=== PATIENT | female | born 1955 | race Caucasian/White ===

== ENCOUNTER 2021-02-09 09:02 | Inpatient (IN) | payer OTHER, MEDICAID, SELFPAY ==
[2021-02-09] VITALS (11 sets, daily range): BP systolic 115–148; BP diastolic 57–73; PULSE 71–87; RESP 18–27; TEMP 36–37.1; O2SAT 90–100; BMI 33.3
--- NOTE | ~2021-02-09 | XR_ITS ---
EXAMINATION: XR FOOT, LEFT CLINICAL INFORMATION: Fall, trauma, pain COMPARISON: None TECHNIQUE: AP, lateral, and oblique views of the left foot. FINDINGS: There is subtle blurring digits on the AP view. The bony structures appear intact and there is no visible acute or healing fracture, dislocation, or destructive process. The first proximal phalanx is foreshortened, possibly related to old healed injury. There are posterior and plantar calcaneal spurs. The retrocalcaneal recess is preserved. XR/XR foot LT min 3V IMPRESSION: 1. No visible fracture or dislocation or destructive process. 2. Posterior and plantar calcaneal spurs.
--- NOTE | ~2021-02-09 | XR_ITS ---
EXAMINATION: XR CHEST CLINICAL INFORMATION: Shortness of breath COMPARISON: Chest radiographs 04/22/2017, 04/21/2017, CTA chest 04/22/2017 TECHNIQUE: Portable upright AP view of the chest was obtained. FINDINGS: There is mild coarsening of the interstitial markings similar to prior studies. There is no lobar segmental airspace consolidation or definite groundglass opacity. The heart is normal in size. The vascularity is normal. There is no effusion. The hilar and mediastinal contours and bony structures are unremarkable. There are old healed left rib fractures. XR/XR chest 1V IMPRESSION: Mild coarsening interstitial markings similar to prior studies.
--- NOTE | ~2021-02-09 | CT_ITS ---
EXAMINATION: CT HEAD WITHOUT CONTRAST CLINICAL INFORMATION: Weakness and falls. COMPARISON: None TECHNIQUE: Contiguous axial imaging was performed from the skull base to vertex without intravenous administration of contrast. This CT examination was performed using dose optimization techniques as appropriate, variously including the following: *Automated exposure control *Adjustment of mA and/or kV according to patient size (this includes techniques or standardized protocols for targeted exams where dose is matched to indication/reason for exam; i.e. extremities or head) *Use of iterative reconstruction technique DLP: 650 mGy-cm FINDINGS: There is no evidence of acute intracranial hemorrhage or territorial infarction. No abnormal mass effect or midline shift is seen. Salguero to white matter differentiation is well preserved. No extra-axial fluid collections are identified. There is a punctate calcification in the left tentorium. The ventricles are normal in size. There is no abnormal attenuation within the brain parenchyma. The osseous structures and soft tissues are normal. The mastoid air cells and visualized portions of the paranasal sinuses are well aerated. CT/CT head/brain wo con IMPRESSION: No acute intracranial process seen.
--- NOTE | 2021-02-09 09:34 | ECG_ITS ---
Test Reason : WEAKNESS Blood Pressure : / mmHG Vent. Rate : 081 BPM Atrial Rate : 081 BPM P-R Int : 130 ms QRS Dur : 088 ms QT Int : 356 ms P-R-T Axes : 071 074 045 degrees QTc Int : 413 ms Normal sinus rhythm Possible Left atrial enlargement Borderline ECG When compared with ECG of 23-APR-2017 12:28, Sinus rhythm has replaced Junctional rhythm Referred By: Sarah Nieves Electronically Signed By:ROGERIO JOHNSON MD
--- NOTE | 2021-02-09 09:37 | ED_ITS ---
HPI - Weakness General Chief complaint: Weakness Stated complaint: WEAK W/ FALLS FROM ASSIST LIVING Time Seen by Provider: 02/09/21 09:24 Source: patient and EMS Mode of arrival: EMS Limitations: no limitations History of Present Illness HPI Narrative: 65 y/o female with history of end stage lung disease with chronic hypoxic respiratory failure on 3L NC and QHS BiPAP (via [employer]), hx tracheostomy s/p decannulation 2 years ago, obesity & depression presents to the ED from assisted living via EMS with increased weakness, confusion since last night with multiple falls. She is a vague historian. She reports I just keep falling. She states she has been using her walker to ambulate when he legs just keep giving out on her. She his her head at least once. She did not lose consciousness. She denies being on blood thinners. She reports compliance with her BiPAP. She was able to get herself up initially but last night (unsure time) she states she was unable to get up and remained there for an unknown amount of time. She remembered she had a [employer] button and pressed it this morning. MD Complaint: generalized weakness and difficulty walking Onset (ago): day(s) (1) Duration: constant Location: generalized Migration: none Severity: severe Relieving factors: rest Exacerbating factors: movement Associated symptoms: shortness of breath Related Data Home Medications Medication Instructions Recorded Confirmed acetaminophen 1,000 mg PO TID PRN 02/09/21 02/09/21 acetazolamide 250 mg PO MOWEFR@1000 02/09/21 02/09/21 albuterol sulfate [Proventil HFA] 2 puff INHALATION QID PRN 02/09/21 02/09/21 alendronate [Fosamax] 70 mg PO QWEEK 02/09/21 02/09/21 aripiprazole [Abilify] 10 mg PO DAILY 02/09/21 02/09/21 aspirin 81 mg PO DAILY 02/09/21 02/09/21 bupropion HCl [Wellbutrin SR] 200 mg PO DAILY 02/09/21 02/09/21 cholecalciferol (vitamin D3) 50 mcg PO DAILY 02/09/21 02/09/21 [Vitamin D3] fluticasone furoate-vilanterol 1 inh INHALATION DAILY 02/09/21 02/09/21 [Breo Ellipta] lamotrigine 200 mg PO DAILY 02/09/21 02/09/21 lamotrigine 300 mg PO BEDTIME 02/09/21 02/09/21 magnesium oxide 400 mg PO BID 02/09/21 02/09/21 metoprolol succinate 50 mg PO DAILY 02/09/21 02/09/21 mirtazapine 15 mg PO BEDTIME 02/09/21 02/09/21 montelukast 10 mg PO BEDTIME 02/09/21 02/09/21 multivitamin 1 tab PO DAILY 02/09/21 02/09/21 prednisone 10 mg PO DAILY 02/09/21 02/09/21 selenium sulfide 10 ml TOPICAL 2XW 02/09/21 02/09/21 sodium chloride [Nasal Mist] 2 spray INTRANASAL QID PRN 02/09/21 02/09/21 tiotropium bromide [Spiriva with 1 cap INHALATION DAILY 02/09/21 02/09/21 HandiHaler] vilazodone [Viibryd] 20 mg PO DAILY 02/09/21 02/09/21 Allergies Allergy/AdvReac Type Severity Reaction Status Date / Time codeine [Codeine] Allergy Intermediate RESTLESS/RA Unverified 08/14/20 15:59 SH Sulfa (Sulfonamide Allergy Intermediate HIVES Unverified 08/14/20 15:59 Antibiotics) haloperidol [Haldol] Allergy Unknown Verified 08/29/18 00:00 From Haldol Allergy Intermediate HIVES Uncoded 08/14/20 15:59 codeine Allergy Unknown aggitaiton Uncoded 03/27/12 00:00 Codeine Phosphate Allergy Unknown Uncoded 08/29/18 00:00 haldol Allergy Unknown aggitation Uncoded 03/27/12 00:00 sulfa Allergy Unknown hives Uncoded 03/27/12 00:00 Review of Systems Review of Systems: Constitutional: No Fever, No Chills ENT/Mouth: No sore throat, No Rhinorrhea, No Swallowing Difficulty Eyes: No Eye Pain, No Swelling, No Redness Cardiovascular: No Chest Pain, + SOB, No Orthopnea, No Edema Respiratory: No Cough, No Sputum, No Wheezing, + dyspnea Gastrointestinal: + Nausea, No Vomiting, No Diarrhea, No abdominal Pain, No Hematochezia, No Melena Genitourinary: No Dysuria, No Urinary Frequency, No Hematuria Musculoskeletal: No joint pain, No Myalgias Skin: No Skin Lesions, No rash Neuro: + Weakness, No Numbness, + Dizziness, No Headache Psych: No Anxiety/Panic, No Depression Heme/Lymph: No Bruising, No Lymphadenopathy Endocrine: No Polyuria, No Polydipsia [facility] Past Medical History Attestation statement: The following information was validated with the patient. Social History Social History Alcohol intake: unknown Smoking Status: Unknown if ever smoked Use of substances other than those prescribed or required for medical reasons: No Advance Directives: No Advance Directives Information Provided: No Physical Exam Vital Signs: Vital Signs: Last Vital Signs Temp 98.0 F 02/09/21 15:14 Pulse 77 02/09/21 15:14 Resp 24 H 02/09/21 15:28 BP 121/58 L 02/09/21 15:14 Pulse Ox 95 02/09/21 15:14 Body Mass Index 33.3 Appearance: Appears older than stated age, No acute distress. Eyes: Pupils equal, round and reactive to light. ENT: Pharynx normal. Neck: Normal inspection. Neck supple. Well healed scar consistent with prior tracheostomy CVS: Normal heart rate and rhythm. Pulses normal. Respiratory: No respiratory distress. Breath sounds diminished throughout, no wheezes. Abdomen: Obese, Soft and nontender. +BS x4 Skin: Skin warm and dry. Normal skin color. Normal skin turgor. No rashes. Extremities: No lower extremity edema. Negative Austyn's sign Neuro: Oriented X 3. No motor deficit. No sensory deficit. Generalized weakness noted LE (symmetrical) >UE. +asterixis. mild dysarthria Course Course Course Narrative: 65 y/o female with chronic respiratory failure presenting with weakness and multiple falls since yesterday. No focal weakness on exam but she has some mild lethargy, mild dysarthria and asterixis. Concern for acute on chronic hypercarbia. Will get ABG, CT head, EKG, and basic lab workup. Low suspicion for CVA, she is non-focal and is not a tPA candidate. Reevaluation(s) Reevaluation #1: ABG showing acute on chronic hypercarbia with pH 7.25, PCO2 117, and PO2 188. Taken off oxygen. RT called for BiPAP. Will give trial of rescue BiPAP with low FiO2, target O2 sat 88-92% and repeat ABG. She is no distress and conversant, Rest of lab workup is pending Reevaluation #2: Rest of workup is unremarkable. Bicarb 48, unknown baseline although given her significant PCO2 elevation this is likely chronic. Spoke with Dr. Low from ICU who is recommending c/s with Pulmonology. Spoke with Dr. Goldstein who is recommending to hold off on Diamox for now. Continue NIPPV. She is ok for admission to [facility] [place] given chronicity of respiratory failure and home use of BiPAP. Will repeat ABG to ensure continued improvement. Her mentation has improved with reduction in PCO2. Reevaluation #3: ABGs continue to improve. pH now normal 7.35. Will take off BiPAP and place on NC for goal O2 sats 88-92%. Will contact hospitalist (Aurora Acharya) for admission. She will come evaluate the patient. Patient to be admitted to [facility] [place]. Patient reports if she were to decompensate she would want resuscitation including ventilator support. Explained her end stage lung disease and likihood of coming off ventilator very low, she expressed understanding. 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 Goldstein - Cornice Upholsterer MDM - Weakness Medical Records Attestation: I reviewed the patient's medical records. Lab Data Attestation: I reviewed the patient's lab results. Result diagrams: 02/09/21 11:21 02/09/21 11:21 Labs: Lab Results 02/09/21 02/09/21 02/09/21 Range/Units 09:52 10:42 10:42 WBC 7.9 (4.8-10.8) X10*3/uL RBC 4.44 (4.20-5.50) X10*6/uL Hgb 13.9 (12.0-16.0) g/dl Hct 46.7 (37-47) % MCV 105.2 H (80-98) fL MCH 31.3 (27.0-33.0) pg MCHC 29.8 L (31.0-35.0) g/dl RDW 12.9 (11.0-16.0) % Plt Count 455 H (160-400) X10*3/uL MPV 9.0 L (9.4-12.3) fL Immature Gran % (Auto) 0.4 (0.0-0.4) % Neut % (Auto) 84.1 H (45-73) % Lymph % (Auto) 6.0 L (20-40) % [place] % (Auto) 7.6 (2-11) % Eos % (Auto) 1.6 (0-4) % Baso % (Auto) 0.3 (0-2) % Lymph # (Auto) 0.5 L (1.2-4.9) X10*3/uL [place] # (Auto) 0.6 (0.1-1.2) X10*3/uL Eos # (Auto) 0.1 (0.0-0.4) X10*3/uL Baso # (Auto) 0.0 (0.0-0.2) X10*3/uL Abs Immat Gran (auto) 0.03 (0.00-0.03) X10*3/uL Absolute Neuts (auto) 6.6 (2.0-8.3) X10*3/uL Absolute Nucleated RBC 0.000 (0.0-0.012) X10*3/uL Nucleated RBC % (auto) 0.0 (0.0-0.2) /100WBC Smear Tech's Comments VERIFIED PT 12.8 (10.8-13.0) SEC INR 1.1 (0.9-1.1) Hold Blue Top SEE NOTE O2 Saturation 100.0 % ABG pH at Pt Temp 7.24 L (7.35-7.45) ABG pH (Temp Correct) 7.25 L (7.35-7.45) ABG pCO2 at Pt Temp 118 H* (32-45) mmHg ABG pCO2 (Temp Corrct 117 H* (32-45) mmHg ABG pO2 at Pt Temp 188 H (83-108) mmHg ABG pO2 (Temp Correct 187 H (83-108) ABG HCO3 52 H (22-26) mmol/L ABG Base Excess (Actual) 17.9 mmol/L Sodium Potassium Chloride Carbon Dioxide Anion Gap BUN Creatinine Estim Creat Clear Calc Estimated GFR Random Glucose Calcium Magnesium Total Bilirubin Direct Bilirubin AST ALT Alkaline Phosphatase Total Creatine Kinase (26-140) U/L Troponin I High Sens (<3.5-17.0) ng/L B-Natriuretic Peptide (<100) pg/mL Total Protein Albumin Procalcitonin ng/mL COVID-19 (EDU) (Negative) COVID-19 Clin Com 02/09/21 02/09/21 02/09/21 Range/Units 10:42 11:18 11:21 WBC (4.8-10.8) X10*3/uL RBC (4.20-5.50) X10*6/uL Hgb (12.0-16.0) g/dl Hct (37-47) % MCV (80-98) fL MCH (27.0-33.0) pg MCHC (31.0-35.0) g/dl RDW (11.0-16.0) % Plt Count (160-400) X10*3/uL MPV (9.4-12.3) fL Immature Gran % (Auto) (0.0-0.4) % Neut % (Auto) (45-73) % Lymph % (Auto) (20-40) % [place] % (Auto) (2-11) % Eos % (Auto) (0-4) % Baso % (Auto) (0-2) % Lymph # (Auto) (1.2-4.9) X10*3/uL [place] # (Auto) (0.1-1.2) X10*3/uL Eos # (Auto) (0.0-0.4) X10*3/uL Baso # (Auto) (0.0-0.2) X10*3/uL Abs Immat Gran (auto) (0.00-0.03) X10*3/uL Absolute Neuts (auto) (2.0-8.3) X10*3/uL Absolute Nucleated RBC (0.0-0.012) X10*3/uL Nucleated RBC % (auto) (0.0-0.2) /100WBC Smear Tech's Comments PT (10.8-13.0) SEC INR (0.9-1.1) Hold Blue Top O2 Saturation % ABG pH at Pt Temp (7.35-7.45) ABG pH (Temp Correct) (7.35-7.45) ABG pCO2 at Pt Temp (32-45) mmHg ABG pCO2 (Temp Corrct (32-45) mmHg ABG pO2 at Pt Temp (83-108) mmHg ABG pO2 (Temp Correct (83-108) ABG HCO3 (22-26) mmol/L ABG Base Excess (Actual) mmol/L Sodium Cancelled Potassium Cancelled Chloride Cancelled Carbon Dioxide Cancelled Anion Gap Cancelled BUN Cancelled Creatinine Cancelled Estim Creat Clear Calc Cancelled Estimated GFR Cancelled Random Glucose Cancelled Calcium Cancelled Magnesium Cancelled Total Bilirubin Cancelled Direct Bilirubin Cancelled AST Cancelled ALT Cancelled Alkaline Phosphatase Cancelled Total Creatine Kinase (26-140) U/L Troponin I High Sens 4.4 (<3.5-17.0) ng/L B-Natriuretic Peptide 30 (<100) pg/mL Total Protein Cancelled Albumin Cancelled Procalcitonin ng/mL COVID-19 (EDU) Negative (Negative) COVID-19 Clin Com See Note 02/09/21 02/09/21 02/09/21 Range/Units 11:21 11:21 11:21 WBC 9.0 (4.8-10.8) X10*3/uL RBC 4.22 (4.20-5.50) X10*6/uL Hgb 13.3 (12.0-16.0) g/dl Hct 44.3 (37-47) % MCV 105.0 H (80-98) fL MCH 31.5 (27.0-33.0) pg MCHC 30.0 L (31.0-35.0) g/dl RDW 13.1 (11.0-16.0) % Plt Count 430 H (160-400) X10*3/uL MPV 8.9 L (9.4-12.3) fL Immature Gran % (Auto) 0.4 (0.0-0.4) % Neut % (Auto) 84.1 H (45-73) % Lymph % (Auto) 5.8 L (20-40) % [place] % (Auto) 8.4 (2-11) % Eos % (Auto) 1.1 (0-4) % Baso % (Auto) 0.2 (0-2) % Lymph # (Auto) 0.5 L (1.2-4.9) X10*3/uL [place] # (Auto) 0.8 (0.1-1.2) X10*3/uL Eos # (Auto) 0.1 (0.0-0.4) X10*3/uL Baso # (Auto) 0.0 (0.0-0.2) X10*3/uL Abs Immat Gran (auto) 0.04 H (0.00-0.03) X10*3/uL Absolute Neuts (auto) 7.5 (2.0-8.3) X10*3/uL Absolute Nucleated RBC 0.000 (0.0-0.012) X10*3/uL Nucleated RBC % (auto) 0.0 (0.0-0.2) /100WBC Smear Tech's Comments PT (10.8-13.0) SEC INR (0.9-1.1) Hold Blue Top O2 Saturation % ABG pH at Pt Temp (7.35-7.45) ABG pH (Temp Correct) (7.35-7.45) ABG pCO2 at Pt Temp (32-45) mmHg ABG pCO2 (Temp Corrct (32-45) mmHg ABG pO2 at Pt Temp (83-108) mmHg ABG pO2 (Temp Correct (83-108) ABG HCO3 (22-26) mmol/L ABG Base Excess (Actual) mmol/L Sodium 143 Potassium 4.6 Chloride 90 L Carbon Dioxide 48 H* Anion Gap 10 L BUN 19 H Creatinine 0.96 Estim Creat Clear Calc 57.4 Estimated GFR 58 Random Glucose 132 H Calcium 9.7 Magnesium 2.1 Total Bilirubin 0.5 Direct Bilirubin < 0.2 AST 17 ALT 18 Alkaline Phosphatase 67 Total Creatine Kinase (26-140) U/L Troponin I High Sens (<3.5-17.0) ng/L B-Natriuretic Peptide (<100) pg/mL Total Protein 6.9 Albumin 4.4 Procalcitonin 0.02 ng/mL COVID-19 (EDU) (Negative) COVID-19 Clin Com 02/09/21 02/09/21 02/09/21 Range/Units 11:21 13:09 15:32 WBC (4.8-10.8) X10*3/uL RBC (4.20-5.50) X10*6/uL Hgb (12.0-16.0) g/dl Hct (37-47) % MCV (80-98) fL MCH (27.0-33.0) pg MCHC (31.0-35.0) g/dl RDW (11.0-16.0) % Plt Count (160-400) X10*3/uL MPV (9.4-12.3) fL Immature Gran % (Auto) (0.0-0.4) % Neut % (Auto) (45-73) % Lymph % (Auto) (20-40) % [place] % (Auto) (2-11) % Eos % (Auto) (0-4) % Baso % (Auto) (0-2) % Lymph # (Auto) (1.2-4.9) X10*3/uL [place] # (Auto) (0.1-1.2) X10*3/uL Eos # (Auto) (0.0-0.4) X10*3/uL Baso # (Auto) (0.0-0.2) X10*3/uL Abs Immat Gran (auto) (0.00-0.03) X10*3/uL Absolute Neuts (auto) (2.0-8.3) X10*3/uL Absolute Nucleated RBC (0.0-0.012) X10*3/uL Nucleated RBC % (auto) (0.0-0.2) /100WBC Smear Tech's Comments PT (10.8-13.0) SEC INR (0.9-1.1) Hold Blue Top O2 Saturation 89.0 91.0 % ABG pH at Pt Temp 7.33 L 7.35 (7.35-7.45) ABG pH (Temp Correct) 7.33 L 7.35 (7.35-7.45) ABG pCO2 at Pt Temp 92 H* 98 H* (32-45) mmHg ABG pCO2 (Temp Corrct 91 H* 97 H* (32-45) mmHg ABG pO2 at Pt Temp 60 L 63 L (83-108) mmHg ABG pO2 (Temp Correct 60 L 62 L (83-108) ABG HCO3 49 H 55 H (22-26) mmol/L ABG Base Excess (Actual) 18.2 23.0 mmol/L Sodium Potassium Chloride Carbon Dioxide Anion Gap BUN Creatinine Estim Creat Clear Calc Estimated GFR Random Glucose Calcium Magnesium Total Bilirubin Direct Bilirubin AST ALT Alkaline Phosphatase Total Creatine Kinase 30 (26-140) U/L Troponin I High Sens (<3.5-17.0) ng/L B-Natriuretic Peptide (<100) pg/mL Total Protein Albumin Procalcitonin ng/mL COVID-19 (EDU) (Negative) COVID-19 Clin Com ABG Data ABG results: 7.24/117/188 on 3L NC 7.33/91/60 on BiPAP 16/8 with 30% FiO2 Attestation: I personally reviewed and interpreted this ABG as follows: Interpretation: acute on chronic hypoxic and hypercarbic respiratory failure ECG Data Attestation: I personally reviewed and interpreted this ECG as follows: ECG interpretation date: 02/09/21 ECG interpretation time: 11:22 Interpretation: normal sinus rhythm, HR 81 bpm, normal NH interval, normal QTc, no ST segment elevations Critical Care Time Critical Care Time Critical Care Time: Yes Total Critical Care Time: 60 Attestation: I attest to critical care time spent caring for this patient with acute metabolic encephalopathy 2/2 hypercarbic respiratory failure requiring rescue non-invasive ventilation, frequent bedside reassessments of her respiratory status, mental status, coordinating care and review of old records. Discharge Plan Discharge Clinical Impression: Acute and chronic respiratory failure with hypercapnia, Acute metabolic encepha lopathy Fall Qualifiers: Encounter type: initial encounter Qualified Code(s): W19.XXXA - Unspecified fall, initial encounter Patient Disposition: Admitted As Inpatient
[2021-02-09 10:09] LABS: ABG Base Excess 17.9 mmol/L; ABG HCO3 52 mmol/L (22-26); ABG pCO2 118 mmHg (32-45); ABG pCO2 TC 117 mmHg (32-45); ABG pH 7.24 (7.35-7.45); ABG pH TC 7.25 (7.35-7.45); ABG pO2 188 mmHg (83-108); ABG pO2 TC 187 (83-108)
[2021-02-09 10:10] LABS: ABG Refer to POC result
[2021-02-09 10:48] LABS: Basophils Percent Auto 0.3 % (0-2); Eosinophils Absolute Auto 0.1 X10*3/uL (0.0-0.4); Eosinophils Percent Auto 1.6 % (0-4); Hematocrit 46.7 % (37-47); Hemoglobin 13.9 g/dl (12.0-16.0); Imm Gran Abs Auto 0.03 X10*3/uL (0.00-0.03); Imm Gran Pct Auto 0.4 % (0.0-0.4); Lymphocytes Absolute Auto 0.5 X10*3/uL (1.2-4.9); MANUAL DIFF FLAG SCAN; Mean Corpuscular HGB Conc 29.8 g/dl (31.0-35.0); Mean Corpuscular Hemoglobin 31.3 pg (27.0-33.0); Mean Corpuscular Volume 105.2 fL (80-98); Monocytes Absolute Auto 0.6 X10*3/uL (0.1-1.2); Monocytes Percent Auto 7.6 % (2-11); Neutrophils Absolute Auto 6.6 X10*3/uL (2.0-8.3); Neutrophils Percent Auto 84.1 % (45-73); Platelet Count 455 X10*3/uL (160-400); Red Blood Count 4.44 X10*6/uL (4.20-5.50); Red Cell Distribution Width 12.9 % (11.0-16.0); SCAN SMEAR FLAG 1; White Blood Count 7.9 X10*3/uL (4.8-10.8)
[2021-02-09 10:54] LABS: INTERNATIONAL NORM RATIO 1.1 (0.9-1.1); Prothrombin Time 12.8 SEC (10.8-13.0)
[2021-02-09 11:14] LABS: SLIDE REVIEW VERIFIED
[2021-02-09 11:16] LABS: B Type Natriuretic Peptide 30 pg/mL (<100); Troponin-I High Sensitivity 4.4 ng/L (<3.5-17.0)
[2021-02-09 11:31] LABS: Basophils Percent Auto 0.2 % (0-2); Eosinophils Absolute Auto 0.1 X10*3/uL (0.0-0.4); Eosinophils Percent Auto 1.1 % (0-4); Hematocrit 44.3 % (37-47); Hemoglobin 13.3 g/dl (12.0-16.0); Imm Gran Abs Auto 0.04 X10*3/uL (0.00-0.03); Imm Gran Pct Auto 0.4 % (0.0-0.4); Lymphocytes Absolute Auto 0.5 X10*3/uL (1.2-4.9); Lymphocytes Percent Auto 5.8 % (20-40); Mean Corpuscular Hemoglobin 31.5 pg (27.0-33.0); Mean Platelet Volume 8.9 fL (9.4-12.3); Monocytes Absolute Auto 0.8 X10*3/uL (0.1-1.2); Monocytes Percent Auto 8.4 % (2-11); Neutrophils Absolute Auto 7.5 X10*3/uL (2.0-8.3); Neutrophils Percent Auto 84.1 % (45-73); Platelet Count 430 X10*3/uL (160-400); Red Blood Count 4.22 X10*6/uL (4.20-5.50); Red Cell Distribution Width 13.1 % (11.0-16.0)
[2021-02-09 11:45] LABS: COVID-19 Test Negative (Negative)
[2021-02-09 11:49] LABS: MANUAL DIFF FLAG NO
[2021-02-09 12:13] LABS: Alanine Aminotransferase 18 U/L (0-31); Albumin Level 4.4 g/dL (3.5-5.0); Alkaline Phosphatase 67 U/L (39-117); Anion Gap 10 (12-20); Aspartate Amino Transferase 17 U/L (5-31); Bilirubin Direct < 0.2 mg/dL (0.0-0.5); Bilirubin Total 0.5 mg/dL (0.0-1.0); Blood Urea Nitrogen 19 mg/dL (9-16); Calcium 9.7 mg/dL (8.4-10.2); Carbon Dioxide 48 mmol/L (22-29); Chloride 90 mmol/L (96-108); Creatinine Clr Calc Pharmacy 57.4; Estimated Glomerular Filt Rate 58; Glucose Random 132 mg/dL (60-115); Magnesium 2.1 mg/dL (1.6-2.6); Potassium 4.6 mmol/L (3.3-5.1); Sodium 143 mmol/L (135-145); Total Protein 6.9 g/dL (6.5-8.0)
[2021-02-09 12:23] LABS: Procalcitonin 0.02 ng/mL
[2021-02-09 13:16] LABS: ABG Base Excess 18.2 mmol/L; ABG HCO3 49 mmol/L (22-26); ABG pCO2 92 mmHg (32-45); ABG pCO2 TC 91 mmHg (32-45); ABG pH 7.33 (7.35-7.45); ABG pH TC 7.33 (7.35-7.45); ABG pO2 60 mmHg (83-108); ABG pO2 TC 60 (83-108)
[2021-02-09 13:21] LABS: ABG Refer to POC result
[2021-02-09 15:40] LABS: ABG Refer to POC result
[2021-02-09 15:41] LABS: ABG HCO3 55 mmol/L (22-26); ABG pCO2 98 mmHg (32-45); ABG pCO2 TC 97 mmHg (32-45); ABG pH 7.35 (7.35-7.45); ABG pH TC 7.35 (7.35-7.45); ABG pO2 63 mmHg (83-108); ABG pO2 TC 62 (83-108)
[2021-02-09] MEDS: Acetaminophen 325 MG TABLET 975 MG PO (16:15)
--- NOTE | 2021-02-09 18:04 | P.HPHOSP_ITS ---
History of Present Illness Date of Service: 02/09/21 Chief Complaint: Falls 65 year old women presentign to the ED after multiple falls at home. She reported multiple falls over the last several weeks likely more last several months. She does live alone. She was admitted to [facility] from 01/13-01/15 at that time she was treated for acute hypoxic respiratory failure with hypercapnia and falls. Apparently she is on trilogy at home however has been non compliant. She did have set of ABGs there which showed pH of 7.35/93/66/51. She was treated with BiPAP IV steroids DuoNebs, not in ICU. She was discharged home. She was somewhat vague in her history and reported that she had not been on her trilogy prior to being hospitalized at [facility] but was on it after that. It is somewhat difficult to tell if this information is correct. She denied chest pain, reported chronic shortness of breath with cough and green sputum production. She denied fever, chills, nausea, vomiting, diarrhea. She does use 2 L of oxygen at home and denies any increase recently. In the ER chest x-ray did not show any consolidation. Initial ABG showed pH of 7.24/118 / 188/52. She was placed on BiPAP. Her pCO2 remain elevated at 98 however pH did improve. It appears as though this pCO2 is chronically elevated patient was alert and oriented and conversing. Her oxygen saturation was 96% on 2 L. in the ER she was given a dose of Diamox, BiPAP, supplemental oxygen. She will be admitted for further management and treatment of acute hypoxic respiratory failure with hypercapnia. Review of Systems Review of Systems: Denies any recent fever chills or decrease in appetite respiratory See HPI cardiovascular is adjustment of any PND or edema gastrointestinal denies any dysphagia abdominal pain nausea vomiting or diarrhea genitourinary denies any dysuria frequency or hematuria musculoskeletal denies any joint pain or swelling neuropsych denies any weakness or seizures all other systems reviewed are negative REPLACED BY [facility] Social History Alcohol intake: unknown Smoking Status: Unknown if ever smoked Use of substances other than those prescribed or required for medical reasons: No Advance Directives: No Advance Directives Information Provided: No Meds Allergies Allergy/AdvReac Type Severity Reaction Status Date / Time codeine [Codeine] Allergy Intermediate RESTLESS/RA Unverified 08/14/20 15:59 SH Sulfa (Sulfonamide Allergy Intermediate HIVES Unverified 08/14/20 15:59 Antibiotics) haloperidol [Haldol] Allergy Unknown Verified 08/29/18 00:00 From Haldol Allergy Intermediate HIVES Uncoded 08/14/20 15:59 codeine Allergy Unknown aggitaiton Uncoded 03/27/12 00:00 Codeine Phosphate Allergy Unknown Uncoded 08/29/18 00:00 haldol Allergy Unknown aggitation Uncoded 03/27/12 00:00 sulfa Allergy Unknown hives Uncoded 03/27/12 00:00 Active Medications: Current Medications Generic Name Dose Route Start Last Admin Trade Name Freq PRN Reason Stop Dose Admin Pharmacy Consult 1 each 02/09/21 09:31 Consult Rx Perform Med Rec MISCELLANE ONCE PRN Consult order Home Medications Medication Instructions Recorded Confirmed Last Taken Type acetaminophen 1,000 mg PO TID PRN 02/09/21 02/09/21 Unknown History acetazolamide 250 mg PO MOWEFR@1000 02/09/21 02/09/21 Unknown History albuterol sulfate [Proventil HFA] 2 puff INHALATION QID PRN 02/09/21 02/09/21 Unknown History alendronate [Fosamax] 70 mg PO QWEEK 02/09/21 02/09/21 Unknown History aripiprazole [Abilify] 10 mg PO DAILY 02/09/21 02/09/21 Unknown History aspirin 81 mg PO DAILY 02/09/21 02/09/21 Unknown History bupropion HCl [Wellbutrin SR] 200 mg PO DAILY 02/09/21 02/09/21 Unknown History cholecalciferol (vitamin D3) 50 mcg PO DAILY 02/09/21 02/09/21 Unknown History [Vitamin D3] fluticasone furoate-vilanterol 1 inh INHALATION DAILY 02/09/21 02/09/21 Unknown History [Breo Ellipta] lamotrigine 200 mg PO DAILY 02/09/21 02/09/21 Unknown History lamotrigine 300 mg PO BEDTIME 02/09/21 02/09/21 Unknown History magnesium oxide 400 mg PO BID 02/09/21 02/09/21 Unknown History metoprolol succinate 50 mg PO DAILY 02/09/21 02/09/21 Unknown History mirtazapine 15 mg PO BEDTIME 02/09/21 02/09/21 Unknown History montelukast 10 mg PO BEDTIME 02/09/21 02/09/21 Unknown History multivitamin 1 tab PO DAILY 02/09/21 02/09/21 Unknown History prednisone 10 mg PO DAILY 02/09/21 02/09/21 Unknown History selenium sulfide 10 ml TOPICAL 2XW 02/09/21 02/09/21 Unknown History sodium chloride [Nasal Mist] 2 spray INTRANASAL QID PRN 02/09/21 02/09/21 Unknown History tiotropium bromide [Spiriva with 1 cap INHALATION DAILY 02/09/21 02/09/21 Unknown History HandiHaler] vilazodone [Viibryd] 20 mg PO DAILY 02/09/21 02/09/21 Unknown History Physical Exam Vital Signs and Narrative: Vital Signs: Last Vital Signs Temp 98.0 F 02/09/21 15:14 Pulse 77 02/09/21 15:14 Resp 24 H 02/09/21 15:28 BP 121/58 L 02/09/21 15:14 Pulse Ox 95 02/09/21 15:14 Body Mass Index 33.3 Appearing in no acute distress head is normocephalic atraumatic eyes pupils are PERRLA sclera is anicteric mouth throat mucous membranes are intact and moist neck is supple no lymphadenopathy, no JVD noted lung sounds Diminished heart regular rate rhythm, clear S1, S2 positive bowel sounds, abdomen is soft, nontender neuro patient is alert x3, no focal deficits Results Labs CBC and Chem 7: 02/09/21 11:21 02/09/21 11:21 Labs: Laboratory Results - last 24 hr 02/09/21 02/09/21 02/09/21 09:52 10:42 10:42 MCV 105.2 H MCH 31.3 MCHC 29.8 L RDW 12.9 Plt Count 455 H MPV 9.0 L Immature Gran % (Auto) 0.4 Neut % (Auto) 84.1 H Lymph % (Auto) 6.0 L [place] % (Auto) 7.6 Eos % (Auto) 1.6 Baso % (Auto) 0.3 Lymph # (Auto) 0.5 L [place] # (Auto) 0.6 Eos # (Auto) 0.1 Baso # (Auto) 0.0 Abs Immat Gran (auto) 0.03 Absolute Neuts (auto) 6.6 Absolute Nucleated RBC 0.000 Nucleated RBC % (auto) 0.0 Smear Tech's Comments VERIFIED PT 12.8 INR 1.1 Hold Blue Top SEE NOTE O2 Saturation 100.0 ABG pH at Pt Temp 7.24 L ABG pH (Temp Correct) 7.25 L ABG pCO2 at Pt Temp 118 H* ABG pCO2 (Temp Corrct 117 H* ABG pO2 at Pt Temp 188 H ABG pO2 (Temp Correct 187 H ABG HCO3 52 H ABG Base Excess (Actual) 17.9 Anion Gap Estim Creat Clear Calc Estimated GFR Random Glucose Calcium Magnesium Total Bilirubin Direct Bilirubin AST ALT Alkaline Phosphatase Total Creatine Kinase Troponin I High Sens B-Natriuretic Peptide Total Protein Albumin Procalcitonin COVID-19 (EDU) [employer] 02/09/21 02/09/21 02/09/21 10:42 11:18 11:21 MCV MCH MCHC RDW Plt Count MPV Immature Gran % (Auto) Neut % (Auto) Lymph % (Auto) [place] % (Auto) Eos % (Auto) Baso % (Auto) Lymph # (Auto) [place] # (Auto) Eos # (Auto) Baso # (Auto) Abs Immat Gran (auto) Absolute Neuts (auto) Absolute Nucleated RBC Nucleated RBC % (auto) Smear Tech's Comments PT INR Hold Blue Top O2 Saturation ABG pH at Pt Temp ABG pH (Temp Correct) ABG pCO2 at Pt Temp ABG pCO2 (Temp Corrct ABG pO2 at Pt Temp ABG pO2 (Temp Correct ABG HCO3 ABG Base Excess (Actual) Anion Gap Cancelled Estim Creat Clear Calc Cancelled Estimated GFR Cancelled Random Glucose Cancelled Calcium Cancelled Magnesium Cancelled Total Bilirubin Cancelled Direct Bilirubin Cancelled AST Cancelled ALT Cancelled Alkaline Phosphatase Cancelled Total Creatine Kinase Troponin I High Sens 4.4 B-Natriuretic Peptide 30 Total Protein Cancelled Albumin Cancelled Procalcitonin COVID-19 (EDU) Negative [employer] See Note 02/09/21 02/09/21 02/09/21 11:21 11:21 11:21 MCV 105.0 H MCH 31.5 MCHC 30.0 L RDW 13.1 Plt Count 430 H MPV 8.9 L Immature Gran % (Auto) 0.4 Neut % (Auto) 84.1 H Lymph % (Auto) 5.8 L [place] % (Auto) 8.4 Eos % (Auto) 1.1 Baso % (Auto) 0.2 Lymph # (Auto) 0.5 L [place] # (Auto) 0.8 Eos # (Auto) 0.1 Baso # (Auto) 0.0 Abs Immat Gran (auto) 0.04 H Absolute Neuts (auto) 7.5 Absolute Nucleated RBC 0.000 Nucleated RBC % (auto) 0.0 Smear Tech's Comments PT INR Hold Blue Top O2 Saturation ABG pH at Pt Temp ABG pH (Temp Correct) ABG pCO2 at Pt Temp ABG pCO2 (Temp Corrct ABG pO2 at Pt Temp ABG pO2 (Temp Correct ABG HCO3 ABG Base Excess (Actual) Anion Gap 10 L Estim Creat Clear Calc 57.4 Estimated GFR 58 Random Glucose 132 H Calcium 9.7 Magnesium 2.1 Total Bilirubin 0.5 Direct Bilirubin < 0.2 AST 17 ALT 18 Alkaline Phosphatase 67 Total Creatine Kinase Troponin I High Sens B-Natriuretic Peptide Total Protein 6.9 Albumin 4.4 Procalcitonin 0.02 COVID-19 (EDU) COVID-19 Clin Com 02/09/21 02/09/21 02/09/21 11:21 13:09 15:32 MCV MCH MCHC RDW Plt Count MPV Immature Gran % (Auto) Neut % (Auto) Lymph % (Auto) [place] % (Auto) Eos % (Auto) Baso % (Auto) Lymph # (Auto) [place] # (Auto) Eos # (Auto) Baso # (Auto) Abs Immat Gran (auto) Absolute Neuts (auto) Absolute Nucleated RBC Nucleated RBC % (auto) Smear Tech's Comments PT INR Hold Blue Top O2 Saturation 89.0 91.0 ABG pH at Pt Temp 7.33 L 7.35 ABG pH (Temp Correct) 7.33 L 7.35 ABG pCO2 at Pt Temp 92 H* 98 H* ABG pCO2 (Temp Corrct 91 H* 97 H* ABG pO2 at Pt Temp 60 L 63 L ABG pO2 (Temp Correct 60 L 62 L ABG HCO3 49 H 55 H ABG Base Excess (Actual) 18.2 23.0 Anion Gap Estim Creat Clear Calc Estimated GFR Random Glucose Calcium Magnesium Total Bilirubin Direct Bilirubin AST ALT Alkaline Phosphatase Total Creatine Kinase 30 Troponin I High Sens B-Natriuretic Peptide Total Protein Albumin Procalcitonin COVID-19 (EDU) COVID-19 Clin Com Imaging Radiologist's Impressions: Impressions Chest X-Ray 02/09/21 09:34 IMPRESSION: Mild coarsening interstitial markings similar to prior studies. Head CT 02/09/21 09:34 IMPRESSION: No acute intracranial process seen. Foot X-Ray 02/09/21 11:27 IMPRESSION: 1. No visible fracture or dislocation or destructive process. 2. Posterior and plantar calcaneal spurs. Assessment and Plan (1) Acute and chronic respiratory failure with hypercapnia: Status: Acute (2) Fall: Qualifiers: Encounter type: initial encounter Qualified Code(s): W19.XXXA - Unspecified fall, initial encounter Status: Acute 65-year-old woman admitted with acute hypoxic respiratory failure with hypercapnia. Patient has had chronic elevation in pCO2 and is on trilogy at home but apparently she has not been compliant with this. She had a recent hospitalization at [facility] where it was also mentioned that she had not been compliant with her trilogy machine. She does use 2 L of oxygen daily. She does have a history of severe pulmonary fibrosis and a history of tracheostomy in the past. Due to this patient is a high risk for worsening in symptoms and should be admitted for management of acute hypoxic respiratory f ailure. Acute on chronic hypoxic respiratory failure with hypercapnia. Patient with history of severe pulmonary fibrosis. Received BiPAP in the ER with good effect. Patient alert and oriented. Still with high pCO2 however this seems chronic. Requiring 2 L of oxygen satting at 96%. Covid negative. - will add Solu-Medrol, azithromycin, nebs, BiPAP at night - continue home oxygen dose. Chronic respiratory Acidosis with Metabolic Alkalosis, secondary to acute on chronic respiratory failure. -continue current treatment with steroids, duo nebs, oxygen, BiPAP at night. Fall. No injury. -Will need PT Schizophrenia. -continue home medications. DVT prophylaxis with Lovenox Case discussed with Dr. Goldsmith Full code
--- NOTE | 2021-02-09 18:47 | PM.EVENT ---
Event Note Date of Service: 02/10/21 Event Note: addendum to H+P by DILMA Acharya I interviewed and examined the patient. I discussed their presentation and management with the mid-level provider. I reviewed the history and physical and agree with the documentation, with the following additions and corrections: 65yo F with advanced COPD, chronic respiratory failure on home O2 + Triology ventilator, ?compliance presenting with multiple falls, worsening dyspnea + cough productive of green sputum In ED placed on biPAP, PCO2 118->98 Alert, in NAD, currently on 2L O2 and conversant with RR 20, SaO2 93% Lungs with diminished sounds throughout CXR B coarse interstitial infiltrates COVID-19 EDU negative plan admit to [facility], BiPAP at night, Pulm consult, IV steroids, azithromycin, supplemental O2
--- NOTE | 2021-02-09 19:33 | PC.NURSE ---
report given to rn and waiting for the room to be cleaned
[2021-02-09] MEDS: Albuterol/Iprat 2.5/0.5MG 3 ML AMPUL.NEB INHALE (20:28)
[2021-02-09] MEDS: Enoxaparin Sodium 40 MG/0.4 ML SYRINGE SUBCUT (21:30)
[2021-02-09] MEDS: lamoTRIgine 25 MG TABLET 300 MG PO (21:30)
[2021-02-09] MEDS: methylPREDNISolone Sod Succ 40 MG/ML VIAL IVPUSH (21:30)
[2021-02-09] MEDS: Azithromycin 500 MG in 0.9 % Sodium Chloride 250 ML 125 MG IV (21:30)
[2021-02-09] MEDS: Mirtazapine 15 MG TABLET PO (21:31)
[2021-02-09] MEDS: Montelukast Sodium 10 MG TABLET PO (21:31)
[2021-02-09] MEDS: Magnesium Oxide 400 MG TABLET PO (21:31)
[2021-02-10] VITALS (13 sets, daily range): BP systolic 115–148; BP diastolic 57–66; PULSE 67–82; RESP 16–33; TEMP 36.1–36.4; O2SAT 88–95; BMI 33.3
[2021-02-10] MEDS: 0.9 % Sodium Chloride Flush 3 ML SYRINGE IVFLUSH ×4 (00:10→23:56)
[2021-02-10 06:21] LABS: Basophils Percent Auto 0.3 % (0-2); Eosinophils Percent Auto 0.3 % (0-4); Hematocrit 41.1 % (37-47); Hemoglobin 12.4 g/dl (12.0-16.0); Imm Gran Abs Auto 0.04 X10*3/uL (0.00-0.03); Imm Gran Pct Auto 0.7 % (0.0-0.4); Lymphocytes Absolute Auto 0.4 X10*3/uL (1.2-4.9); Lymphocytes Percent Auto 6.3 % (20-40); MANUAL DIFF FLAG SCAN; Mean Corpuscular HGB Conc 30.2 g/dl (31.0-35.0); Mean Corpuscular Hemoglobin 30.8 pg (27.0-33.0); Mean Corpuscular Volume 102.2 fL (80-98); Mean Platelet Volume 9.3 fL (9.4-12.3); Monocytes Absolute Auto 0.3 X10*3/uL (0.1-1.2); Monocytes Percent Auto 5.7 % (2-11); Neutrophils Absolute Auto 5.1 X10*3/uL (2.0-8.3); Neutrophils Percent Auto 86.7 % (45-73); Platelet Count 416 X10*3/uL (160-400); Red Blood Count 4.02 X10*6/uL (4.20-5.50); Red Cell Distribution Width 13.2 % (11.0-16.0); SCAN SMEAR FLAG 1; White Blood Count 5.8 X10*3/uL (4.8-10.8)
[2021-02-10] MEDS: methylPREDNISolone Sod Succ 40 MG/ML VIAL IVPUSH ×2 (06:37→16:58)
[2021-02-10 07:01] LABS: Anion Gap 10 (12-20); Blood Urea Nitrogen 25 mg/dL (9-16); Calcium 8.9 mg/dL (8.4-10.2); Carbon Dioxide 45 mmol/L (22-29); Chloride 92 mmol/L (96-108); Creatinine Clr Calc Pharmacy 59.8; Estimated Glomerular Filt Rate > 60; Glucose Random 117 mg/dL (60-115); Sodium 143 mmol/L (135-145)
[2021-02-10] MEDS: Albuterol/Iprat 2.5/0.5MG 3 ML AMPUL.NEB INHALE ×4 (07:24→19:40)
[2021-02-10 07:52] LABS: SLIDE REVIEW VERIFIED
[2021-02-10] MEDS: Aspirin Enteric Coated 81 MG TABLET.DR PO (08:09)
[2021-02-10] MEDS: Magnesium Oxide 400 MG TABLET PO ×2 (08:09→20:54)
[2021-02-10] MEDS: lamoTRIgine 100 MG TABLET 200 MG PO (08:09)
[2021-02-10] MEDS: Metoprolol Succinate ER 50 MG TAB.ER.24H PO (08:09)
[2021-02-10] MEDS: ARIPiprazole 10 MG TABLET PO (08:10)
[2021-02-10] MEDS: buPROPion HCl XL 150 MG TAB.ER.24H PO (08:10)
[2021-02-10] MEDS: Cholecalciferol (Vitamin D3) 25 MCG TABLET 50 MCG PO (08:10)
[2021-02-10] MEDS: Multivitamin TABLET 1 TAB PO (08:10)
[2021-02-10] MEDS: Acetaminophen 325 MG TABLET 650 MG PO (08:10)
[2021-02-10] MEDS: Vilazodone HCL 20 MG TABLET PO (08:10)
[2021-02-10] MEDS: Fluticasone/Vilanterol 200/25 BLST.W.DEV 1 PUFF INHALE (08:58)
--- NOTE | 2021-02-10 12:00 | CONS_ITS ---
DATE OF SERVICE: 02/10/2021 HISTORY OF PRESENT ILLNESS: Lluvia is a 65-year-old female, who used to be under my care for many years up until 2017. After 2017, she had been going to [facility] and followed by physical meteorologist, Dr. Reyes, over there. Yesterday, she came to the emergency room over here and is now hospitalized for care of her acute on chronic respiratory failure. For the past few days, she has had frequent falls at home. The reason she came to the emergency room actually was for frequent falls and also she has noticed that she has fine tremors of upper extremities and has very poor balance. Here, in the emergency room, she was found to have acute respiratory failure with a pCO2 of 118 and a PO2 of 188. The patient has had no fever, chills, or chest pain, and she states she has been using her medical regimen as well as the oxygen at 3 L/minute. For many years, she is known to have chronic respiratory failure with hypercapnia and hypoxemia, and in addition to her medical regimen, she is also on home ventilator to be used at night (Trilogy). The patient took some time to tell me for how many hours she uses at night, but she came up to 4 or 5 hours. I suspect that she has not been using even that much, and this is in addition to oxygen, which she uses 2 during the day and sometimes 3 at night. Here in the emergency room, she was started on BiPAP and her pCO2 is already improving. PAST MEDICAL HISTORY: Mainly includes advanced COPD and chronic respiratory failure as noted above. REVIEW OF SYSTEMS: She had generalized weakness. She has been eating good. No GI symptoms. No chest pain or arrhythmias. She has had no fever or chills. She tells me that she did finally quit smoking 1 year ago. PHYSICAL EXAMINATION: GENERAL: This is a 65-year-old female, who is currently quite orientated and she recognizes me and we had a good conversation. She is not in any distress at this time. VITAL SIGNS: Respiratory rate is 14. HEENT: Throat, clear. NECK: No JVD. Trachea midline. CHEST: Percussion note hyper-resonant. Breath sounds are diminished on both sides with prolonged expiratory phase and she has fine inspiratory crackles over both bases. CARDIAC: Sounds are normal. Rhythm regular. EXTREMITIES: There are multiple bruises over her lower extremities. Peripheral pulses are faintly palpable, and no pitting edema is noted. DIAGNOSTIC DATA: Chest x-ray shows good aeration of both sides. There are fine interstitial markings over the basilar areas, which are similar to her previous radiologic picture back in 2017. There is no evidence of acute pneumonia. LABORATORY DATA: White cell count 5.8 and hemoglobin 12.4. Serologies; COVID-19 test is negative. Blood gases on arrival to the emergency room, pH 7.24, pCO2 of 118, and PO2 of 188. Bicarb 52. Subsequent ABG on 02/09 was as follows; pH 7.35, pCO2 of 98, and PO2 of 63. In her case, this is considered to be a significant improvement. IMPRESSION: 1. Advanced chronic obstructive pulmonary disease. 2. Acute hypercarbic/hypoxemic respiratory failure. 3. The patient probably had metabolic encephalopathy for the past 1 week or so due to hypercarbia. 4. Her acute on chronic respiratory failure is most likely due to suboptimal use of ventilatory support. 5. Chronic schizophrenic disorder, well controlled. RECOMMENDATIONS: The most important component of treatment is to provide her noninvasive ventilatory support as much as possible. I discussed with her and told her that she had to use the BiPAP over here at least for 8 hours every day. She might in addition to using at night, she may use for a couple of hours during the daytime also. Continue Breo 200 one inhalation daily, DuoNeb updrafts q.6 hours while awake, and IV Solu-Medrol 40 mg b.i.d. for 1 or 2 days, then prednisone. The patient is advised to avoid any sedating or narcotic medications. She should be on oxygen supplement with the goal of keeping O2 saturation between 90% to 92% only. Avoid any excessive use of oxygen. The patient can be kept on acetazolamide 250 mg p.o. daily. Monitor the blood gases on a daily basis. Thank you very much for asking me to see this patient and I will be glad to follow her along. MD KYMBERLY Hu/LAUREL / [phone]
--- NOTE | 2021-02-10 12:08 | MHC.CM.PN ---
met withpt who has all her services thru [facility] her scripts ,suit maker,homemaker and home 02/thru [facility] cm is chaparro [phone] who should be called to arrange transport home
[2021-02-10 14:13] LABS: ABG HCO3 40 mmol/L (22-26); ABG pCO2 64 mmHg (32-45); ABG pCO2 TC 62 mmHg (32-45); ABG pH TC 7.41 (7.35-7.45); ABG pO2 64 mmHg (83-108); ABG pO2 TC 61 (83-108)
[2021-02-10 14:14] LABS: ABG Refer to POC result
--- NOTE | 2021-02-10 15:51 | P.PNIM_ITS ---
Subjective Subjective Date of Service: 02/10/21 Interval History: breathing improved but quite anxious no fever no further sputum no further wheezing Physical Exam Vital Signs: Vital Signs: Last Vital Signs Temp 97.1 F 02/10/21 15:34 Pulse 71 02/10/21 15:34 Resp 18 02/10/21 15:34 BP 125/62 02/10/21 15:34 Pulse Ox 92 02/10/21 15:34 Body Mass Index 33.3 Gen: in no acute distress HEENT: sclera anicteric, moist mucus membranes Neck: supple Lungs: diminished bilaterally Heart: regular rate and rhythm, no murmurs Abd: soft, non-tender, non-distended Ext: no edema Skin: warm/well-perfused Neuro: alert and oriented x3, no focal findings Psych: appropriate affect Objective Data Current Medications Generic Name Dose Route Start Last Admin Trade Name Freq PRN Reason Stop Dose Admin Acetaminophen 650 mg 02/09/21 18:22 02/10/21 08:10 Acetaminophen 325 Mg Tablet PO 650 mg Q6H PRN Administration Pain, Mild (Pain Scale 1-3) Acetazolamide 250 mg 02/12/21 09:00 Acetazolamide 250 Mg Tablet PO TuThSa@0900 ALYSSA Albuterol/Ipratropium 3 ml 02/09/21 20:00 02/10/21 15:23 Albuterol/Iprat 2.5/0.5mg 3 Ml Ampul.Neb INHALE 3 ml RQ4H WHILE AWAKE ALYSSA Administration Aripiprazole 10 mg 02/10/21 09:00 02/10/21 08:10 Aripiprazole 10 Mg Tablet PO 10 mg DAILY ALYSSA Administration Aspirin 81 mg 02/10/21 09:00 02/10/21 08:09 Aspirin Enteric Coated 81 Mg Tablet. PO 81 mg DAILY ALYSSA Administration Bupropion HCl 150 mg 02/10/21 09:00 02/10/21 08:10 Bupropion Hcl Xl 150 Mg Tab.Er.24h PO 150 mg DAILY ALYSSA Administration Enoxaparin Sodium 40 mg 02/09/21 18:30 02/09/21 21:30 Enoxaparin Sodium 40 Mg/0.4 Ml Syringe SUBCUT 40 mg Q24H ALYSSA Administration Fluticasone/Vilanterol 1 puff 02/10/21 09:00 02/10/21 08:58 Fluticasone/Vilanterol 200/25 Blst.W.Dev INHALE 1 puff DAILY ALYSSA Administration Azithromycin 500 mg/ Sodium 250 mls @ 125 mls/hr 02/09/21 18:30 02/10/21 00:01 Chloride IV Infused Q24H ALYSSA Infusion Lamotrigine 300 mg 02/09/21 21:00 02/09/21 21:30 Lamotrigine 25 Mg Tablet PO 300 mg BEDTIME ALYSSA Administration Lamotrigine 200 mg 02/10/21 09:00 02/10/21 08:09 Lamotrigine 100 Mg Tablet PO 200 mg DAILY ALYSSA Administration Magnesium Oxide 400 mg 02/09/21 21:00 02/10/21 08:09 Magnesium Oxide 400 Mg Tablet PO 400 mg BID ALYSSA Administration Methylprednisolone Sodium Succinate 40 mg 02/09/21 18:30 02/10/21 06:37 Methylprednisolone Sod Succ 40 Mg/Ml Vial IVPUSH 40 mg Q12H ALYSSA Administration Metoprolol Succinate 50 mg 02/10/21 09:00 02/10/21 08:09 Metoprolol Succinate Er 50 Mg Tab.Er.24h PO 50 mg DAILY ALYSSA Administration Protocol Mirtazapine 15 mg 02/09/21 21:00 02/09/21 21:31 Mirtazapine 15 Mg Tablet PO 15 mg BEDTIME ALYSSA Administration Montelukast Sodium 10 mg 02/09/21 21:00 02/09/21 21:31 Montelukast Sodium 10 Mg Tablet PO 10 mg BEDTIME ALYSSA Administration Multivitamins/Vitamin C 1 tab 02/10/21 09:00 02/10/21 08:10 Multivitamin Tablet PO 1 tab DAILY ALYSSA Administration Ondansetron HCl 4 mg 02/09/21 18:22 Ondansetron Hcl 4 Mg/2 Ml Vial IVPUSH Q8H PRN Nausea and Vomiting Pharmacy Consult 1 each 02/09/21 09:31 Consult Rx Perform Med Rec MISCELLANE ONCE PRN Consult order Sodium Chloride 3 ml 02/10/21 00:00 02/10/21 08:10 0.9 % Sodium Chloride Flush 3 Ml Syringe IVFLUSH 3 ml QSHIFT ALYSSA Administration Tiotropium [place] 1 puff 02/10/21 08:00 02/10/21 07:24 Tiotropium [place] 18 Mcg Cap.W.Dev INHALE 1 puff RDAILY ALYSSA Administration Vilazodone HCl 20 mg 02/10/21 09:00 02/10/21 08:10 Vilazodone Hcl 20 Mg Tablet PO 20 mg DAILY ALYSSA Administration Vitamin D 50 mcg 02/10/21 09:00 02/10/21 08:10 Cholecalciferol (Vitamin D3) 25 Mcg Tablet PO 50 mcg DAILY ALYSSA Administration Labs CBC & Chem 7: 02/10/21 05:23 02/10/21 05:23 Labs: Laboratory Results - last 24 hr 02/10/21 02/10/21 02/10/21 05:23 05:23 13:36 WBC 5.8 RBC 4.02 L Hgb 12.4 Hct 41.1 MCV 102.2 H MCH 30.8 MCHC 30.2 L RDW 13.2 Plt Count 416 H MPV 9.3 L Immature Gran % (Auto) 0.7 H Neut % (Auto) 86.7 H Lymph % (Auto) 6.3 L [place] % (Auto) 5.7 Eos % (Auto) 0.3 Baso % (Auto) 0.3 Lymph # (Auto) 0.4 L [place] # (Auto) 0.3 Eos # (Auto) 0.0 Baso # (Auto) 0.0 Abs Immat Gran (auto) 0.04 H Absolute Neuts (auto) 5.1 Absolute Nucleated RBC 0.000 Nucleated RBC % (auto) 0.0 Smear Tech's Comments VERIFIED O2 Saturation 90.0 ABG pH at Pt Temp 7.40 ABG pH (Temp Correct) 7.41 ABG pCO2 at Pt Temp 64 H* ABG pCO2 (Temp Corrct 62 H* ABG pO2 at Pt Temp 64 L ABG pO2 (Temp Correct 61 L ABG HCO3 40 H ABG Base Excess (Actual) 13.0 Sodium 143 Potassium 4.0 Chloride 92 L Carbon Dioxide 45 H* Anion Gap 10 L BUN 25 H Creatinine 0.92 Estim Creat Clear Calc 59.8 Estimated GFR > 60 Random Glucose 117 H Calcium 8.9 D Assessment and Plan (1) Acute and chronic respiratory failure with hypercapnia: Status: Acute (2) COPD with exacerbation: Status: Acute
[2021-02-10] MEDS: Enoxaparin Sodium 40 MG/0.4 ML SYRINGE SUBCUT (19:05)
[2021-02-10] MEDS: Azithromycin 500 MG in 0.9 % Sodium Chloride 250 ML 125 MG IV (19:05)
[2021-02-10] MEDS: lamoTRIgine 25 MG TABLET 300 MG PO (20:51)
[2021-02-10] MEDS: Montelukast Sodium 10 MG TABLET PO (20:54)
[2021-02-10] MEDS: Mirtazapine 15 MG TABLET PO (20:54)
[2021-02-11] VITALS (13 sets, daily range): BP systolic 122–155; BP diastolic 61–80; PULSE 57–93; RESP 16–24; TEMP 36.1–36.7; O2SAT 76–95
[2021-02-11 06:18] LABS: VBG Base Excess 21.4 mmol/L; VBG HCO3 51 mmol/L (22-26); VBG pCO2 88 mmHg; VBG pH 7.37 (7.32-7.43); VBG pO2 36 mmHg
[2021-02-11 06:19] LABS: Venous Blood Gas Refer to POC result
[2021-02-11 06:49] LABS: Anion Gap 9 (12-20); Blood Urea Nitrogen 22 mg/dL (9-16); Calcium 8.4 mg/dL (8.4-10.2); Carbon Dioxide 43 mmol/L (22-29); Chloride 91 mmol/L (96-108); Creatinine Clr Calc Pharmacy 73.4; Estimated Glomerular Filt Rate > 60; Glucose Random 101 mg/dL (60-115); Potassium 3.9 mmol/L (3.3-5.1); Sodium 139 mmol/L (135-145)
[2021-02-11] MEDS: Albuterol/Iprat 2.5/0.5MG 3 ML AMPUL.NEB INHALE ×3 (07:49→20:45)
[2021-02-11] MEDS: Fluticasone/Vilanterol 200/25 BLST.W.DEV 1 PUFF INHALE (07:49)
[2021-02-11] MEDS: Magnesium Oxide 400 MG TABLET PO ×2 (07:56→19:54)
[2021-02-11] MEDS: Aspirin Enteric Coated 81 MG TABLET.DR PO (07:56)
[2021-02-11] MEDS: buPROPion HCl XL 150 MG TAB.ER.24H PO (07:56)
[2021-02-11] MEDS: Multivitamin TABLET 1 TAB PO (07:56)
[2021-02-11] MEDS: lamoTRIgine 100 MG TABLET 200 MG PO (07:56)
[2021-02-11] MEDS: Cholecalciferol (Vitamin D3) 25 MCG TABLET 50 MCG PO (07:56)
[2021-02-11] MEDS: Metoprolol Succinate ER 50 MG TAB.ER.24H PO (07:56)
[2021-02-11] MEDS: ARIPiprazole 10 MG TABLET PO (07:56)
[2021-02-11] MEDS: 0.9 % Sodium Chloride Flush 3 ML SYRINGE IVFLUSH ×3 (07:57→20:03)
[2021-02-11] MEDS: Vilazodone HCL 20 MG TABLET PO (07:57)
--- NOTE | 2021-02-11 10:10 | P.PNPL_ITS ---
Subjective Subjective Date of Service: 02/11/21 Principal diagnosis: copd/resp. failure Interval history: This 65 years old female with advanced COPD and chronic resp iratory failure, Admitted due to frequent falls and fine tremors of the upper extremities as an expression of metabolic encephalopathy. Found to have CO2 narcosis at the time of admission, with PCO 2 118 . This was due to lose very suboptimal use of home ventilator that she has for many years( Trilogy ) In the hospital she with the use of BiPAP she has improved relatively quickly. She is very alert and orientated, still has poor balance. Venous blood gas study this morning shows pCO2 64 , and well compensated chronic respiratory failure. This is more at her baseline . Objective Data Labs CBC & Chem 7: 02/10/21 05:23 02/11/21 06:04 Labs: Laboratory Results - last 24 hr 02/10/21 02/11/21 02/11/21 13:36 06:04 06:11 O2 Saturation 90.0 ABG pH at Pt Temp 7.40 ABG pH (Temp Correct) 7.41 ABG pCO2 at Pt Temp 64 H* ABG pCO2 (Temp Corrct 62 H* ABG pO2 at Pt Temp 64 L ABG pO2 (Temp Correct 61 L ABG HCO3 40 H ABG Base Excess (Actual) 13.0 VBG pH 7.37 VBG pCO2 88 VBG pO2 36 VBG HCO3 51 H VBG O2 Saturation 59.0 VBG Base Excess 21.4 Sodium 139 Potassium 3.9 Chloride 91 L Carbon Dioxide 43 H* Anion Gap 9 L BUN 22 H Creatinine 0.75 Estim Creat Clear Calc 73.4 Estimated GFR > 60 Random Glucose 101 Calcium 8.4 Review of Systems Review of Systems Yes all other systems are reviewed and are negative Constitutional: Reports weakness Denies nasal congestion, Denies nasal discharge and Reports disequilibrium Cardiovascular: Denies chest pain, Denies leg edema and Reports dyspnea on exertion Respiratory: Reports cough (mild intermittent .), Reports dyspnea on exertion and Denies wheezing Gastrointestinal: Reports no additional gastrointestinal complaints Musculoskeletal: Reports muscle weakness Reports tremor(s) (fine , improved .), Reports disequilibrium and Reports weakness Allergic/Immunologic: Denies wheezing Physical Exam Vital Signs: Vital Signs: Last Vital Signs Temp 97.7 F 02/11/21 07:48 Pulse 65 02/11/21 07:51 Resp 20 02/11/21 07:48 BP 140/65 H 02/11/21 07:48 Pulse Ox 95 02/11/21 04:00 Body Mass Index 33.3 Const: General: comfortable, no acute distress, alert and awake Orientation/consciousness: patient oriented x3 HENMT: Head: Yes normal to inspection General nose exam: No nasal polyps present and No nasal discharge present Face and sinus: Yes sinuses nontender Mouth: oropharynx normal Throat: Yes posterior oropharynx normal Eyes: General: appearance normal, both eyes and all related structures Neck: Neck: Yes normal visual inspection, Yes no lymphadenopathy, Yes trachea midline and Yes no JVD Thyroid: Thyroid normal Chest: Chest palpation & inspection: normal inspection of the chest and normal palpation of entire chest wall Resp: Effort & Inspection: prolonged expiratory phase Auscultation: rales (a few over the left base . ), no wheezes and diminished lung sounds Cardio: Palpation: normal PMI Rate: regular rate Rhythm: regular rhythm Heart sounds: no gallops and no murmurs GI: Palpation (GI): Soft to palpation, nontender, No hepatosplenomegaly present and no masses Auscultation: normal bowel sounds Back/Spine/Pelvis: Thoracic/Lumbar Spine: thoracic and lumbar spine normal to inspection Skin: General skin exam: no rashes or lesions noted Neuro: General: patient oriented x3, no focal motor deficits and other (general body weakness ) Cranial nerves: Yes CN's II-XII intact bilaterally Extrem: General: Yes normal to inspection, Yes no clubbing, cyanosis or edema, Yes no calf tenderness and No venous stasis dermatitis Psych: Speech and movement: Normal speech and movement present Assessment and Plan Assessment and plan (1) COPD with exacerbation: Problem details: She has advanced COPD for many years, along with chronic respiratory failure, Her COPD seemed to be quite controlled and stable at this time. She would need to continue her regular regimen including Breo-201 inhalation daily DuoNeb updrafts q.i.d.. Montelukast 10 mg daily Patient has been on prednisone 10 mg a day, this may be weaned down slowly over the next few weeks Status: Acute (2) Acute and chronic respiratory failure with hypercapnia: Problem details: Patient has chronic hypercapnia could/hypoxemic respiratory failure. She is on home ventilatory support at night with TRILOGY . Her use was suboptimal. Now with proper use of ventilatory support , she has improved to almost back to her baseline. Patient is educated thoroughly that she must use trilogy for at least is 8 hours every day and night, about 6 hours at night and 2 hours during the daytime. This is going to be her mainstay treatment. Status: Acute (3) Acute metabolic encephalopathy: Problem details: Acute encephalopathy secondary to CO2 narcosis has improved, she is seems to be at her baseline Status: Acute Time Spent With Patient Time: Total time spent is greater than 50% in coordination of care (as documented) at patient's floor/unit and/or counseling patient: Time with patient: 25 - 35 minutes
[2021-02-11 10:15] LABS: Folate 16.6 ng/mL (> or = 4.0); Vitamin B12 470 pg/mL (200-900)
--- NOTE | 2021-02-11 11:13 | HO.PM.IMPN ---
Subjective Subjective Date of Service: 02/11/21 Interval History: breathing improved no sputum production, no wheeze no fever c/o leg unsteadiness, L foot pain Physical Exam Vital Signs: Vital Signs: Last Vital Signs Temp 97.7 F 02/11/21 07:48 Pulse 65 02/11/21 07:51 Resp 20 02/11/21 07:48 BP 140/65 H 02/11/21 07:48 Pulse Ox 95 02/11/21 04:00 Body Mass Index 33.3 Gen: in no acute distress HEENT: sclera anicteric, moist mucus membranes Neck: supple Lungs: diminished bilaterally Heart: regular rate and rhythm, no murmurs Abd: soft, non-tender, non-distended Ext: no edema Skin: warm/well-perfused Neuro: alert and oriented x3, no focal findings Psych: appropriate affect Objective Data Current Medications Generic Name Dose Route Start Last Admin Trade Name Freq PRN Reason Stop Dose Admin Acetaminophen 650 mg 02/09/21 18:22 02/10/21 08:10 Acetaminophen 325 Mg Tablet PO 650 mg Q6H PRN Administration Pain, Mild (Pain Scale 1-3) Acetazolamide 250 mg 02/12/21 09:00 Acetazolamide 250 Mg Tablet PO TuThSa@0900 ALYSSA Albuterol/Ipratropium 3 ml 02/09/21 20:00 02/11/21 07:49 Albuterol/Iprat 2.5/0.5mg 3 Ml Ampul.Neb INHALE 3 ml RQ4H WHILE AWAKE ALYSSA Administration Aripiprazole 10 mg 02/10/21 09:00 02/11/21 07:56 Aripiprazole 10 Mg Tablet PO 10 mg DAILY ALYSSA Administration Aspirin 81 mg 02/10/21 09:00 02/11/21 07:56 Aspirin Enteric Coated 81 Mg Tablet. PO 81 mg DAILY ALYSSA Administration Bupropion HCl 150 mg 02/10/21 09:00 02/11/21 07:56 Bupropion Hcl Xl 150 Mg Tab.Er.24h PO 150 mg DAILY ALYSSA Administration Enoxaparin Sodium 40 mg 02/09/21 18:30 02/10/21 19:05 Enoxaparin Sodium 40 Mg/0.4 Ml Syringe SUBCUT 40 mg Q24H ALYSSA Administration Fluticasone/Vilanterol 1 puff 02/10/21 09:00 02/11/21 07:49 Fluticasone/Vilanterol 200/25 Blst.W.Dev INHALE 1 puff DAILY ALYSSA Administration Azithromycin 500 mg/ Sodium 250 mls @ 125 mls/hr 02/09/21 18:30 02/10/21 21:39 Chloride IV Infused Q24H ALYSSA Infusion Lamotrigine 300 mg 02/09/21 21:00 02/10/21 20:51 Lamotrigine 25 Mg Tablet PO 300 mg BEDTIME ALYSSA Administration Lamotrigine 200 mg 02/10/21 09:00 02/11/21 07:56 Lamotrigine 100 Mg Tablet PO 200 mg DAILY ALYSSA Administration Magnesium Oxide 400 mg 02/09/21 21:00 02/11/21 07:56 Magnesium Oxide 400 Mg Tablet PO 400 mg BID ALYSSA Administration Methylprednisolone Sodium Succinate 40 mg 02/10/21 16:00 02/10/21 16:58 Methylprednisolone Sod Succ 40 Mg/Ml Vial IVPUSH 40 mg Q24H ALYSSA Administration Metoprolol Succinate 50 mg 02/10/21 09:00 02/11/21 07:56 Metoprolol Succinate Er 50 Mg Tab.Er.24h PO 50 mg DAILY ALYSSA Administration Protocol Mirtazapine 15 mg 02/09/21 21:00 02/10/21 20:54 Mirtazapine 15 Mg Tablet PO 15 mg BEDTIME ALYSSA Administration Montelukast Sodium 10 mg 02/09/21 21:00 02/10/21 20:54 Montelukast Sodium 10 Mg Tablet PO 10 mg BEDTIME ALYSSA Administration Multivitamins/Vitamin C 1 tab 02/10/21 09:00 02/11/21 07:56 Multivitamin Tablet PO 1 tab DAILY ALYSSA Administration Ondansetron HCl 4 mg 02/09/21 18:22 Ondansetron Hcl 4 Mg/2 Ml Vial IVPUSH Q8H PRN Nausea and Vomiting Pharmacy Consult 1 each 02/09/21 09:31 Consult Rx Perform Med Rec MISCELLANE ONCE PRN Consult order Sodium Chloride 3 ml 02/10/21 00:00 02/11/21 07:57 0.9 % Sodium Chloride Flush 3 Ml Syringe IVFLUSH 3 ml QSHIFT ALYSSA Administration Tiotropium [place] 1 puff 02/10/21 08:00 02/11/21 07:49 Tiotropium [place] 18 Mcg Cap.W.Dev INHALE 1 puff RDAILY ALYSSA Administration Vilazodone HCl 20 mg 02/10/21 09:00 02/11/21 07:57 Vilazodone Hcl 20 Mg Tablet PO 20 mg DAILY ALYSSA Administration Vitamin D 50 mcg 02/10/21 09:00 02/11/21 07:56 Cholecalciferol (Vitamin D3) 25 Mcg Tablet PO 50 mcg DAILY ALYSSA Administration Labs CBC & Chem 7: 02/10/21 05:23 02/11/21 06:04 Labs: Laboratory Results - last 24 hr 02/10/21 02/11/21 02/11/21 13:36 06:04 06:04 O2 Saturation 90.0 ABG pH at Pt Temp 7.40 ABG pH (Temp Correct) 7.41 ABG pCO2 at Pt Temp 64 H* ABG pCO2 (Temp Corrct 62 H* ABG pO2 at Pt Temp 64 L ABG pO2 (Temp Correct 61 L ABG HCO3 40 H ABG Base Excess (Actual) 13.0 VBG pH VBG pCO2 VBG pO2 VBG HCO3 VBG O2 Saturation VBG Base Excess Sodium 139 Potassium 3.9 Chloride 91 L Carbon Dioxide 43 H* Anion Gap 9 L BUN 22 H Creatinine 0.75 Estim Creat Clear Calc 73.4 Estimated GFR > 60 Random Glucose 101 Calcium 8.4 Vitamin B12 470 Folate 16.6 02/11/21 06:11 O2 Saturation ABG pH at Pt Temp ABG pH (Temp Correct) ABG pCO2 at Pt Temp ABG pCO2 (Temp Corrct ABG pO2 at Pt Temp ABG pO2 (Temp Correct ABG HCO3 ABG Base Excess (Actual) VBG pH 7.37 VBG pCO2 88 VBG pO2 36 VBG HCO3 51 H VBG O2 Saturation 59.0 VBG Base Excess 21.4 Sodium Potassium Chloride Carbon Dioxide Anion Gap BUN Creatinine Estim Creat Clear Calc Estimated GFR Random Glucose Calcium Vitamin B12 Folate Assessment and Plan (1) Acute and chronic respiratory failure with hypercapnia: Problem details: Patient has chronic hypercapnia could/hypoxemic respiratory failure. She is on home ventilatory support at night with TRILOGY . Her use was suboptimal. Now with proper use of ventilatory support , she has improved to almost back to her baseline. Patient is educated thoroughly that she must use trilogy for at least is 8 hours every day and night, about 6 hours at night and 2 hours during the daytime. This is going to be her mainstay treatment. Status: Acute (2) COPD with exacerbation: Problem details: She has advanced COPD for many years, along with chronic respiratory failure, Her COPD seemed to be quite controlled and stable at this time. She would need to continue her regular regimen including Breo-201 inhalation daily DuoNeb updrafts q.i.d.. Montelukast 10 mg daily Patient has been on prednisone 10 mg a day, this may be weaned down slowly over the next few weeks Status: Acute Assessment and Plan: hospital d#3 65yo F with advanced COPD, chronic hypercapneic + hypoxic respiratory failure, ex-smoker [quit 1 yr ago] admitted for acute/chronic hypoxic/hypercapneic respiratory failure, briefly on BiPAP in ED suboptimal use of home Trilogy ventilator # acute/chronic hypoxic/hypercapneic respiratory failure - suppl O2 with target SaO2 no more than 92%, BiPAP for 8h at night [counseled to use Triology at home], Pulmonology following - acetazolamide # COPD exacerbation - steroid taper, ICS/LABA, LAMA, prn SYLVIA/SHANNON, azithromycin, montelukast # mood disorder - continue bupropion, aripiprazole, lamotrigine, mirtazapine, vilazodone # HTN - metoprolol succinate # VTE ppx - LMWH # dispo - likely STR tomorrow
--- NOTE | 2021-02-11 11:22 | MHC.CM.PN ---
pt agreeable to PT recommendation for str call placed and message left for both chaparro hui [phone] and trixie brown rn [facility] re str await callback both notified that pt is ready for dc tomorrow
--- NOTE | 2021-02-11 12:12 | MHC.CM.PN ---
physical therapy faxed to [facility] alice brown
--- NOTE | 2021-02-11 13:23 | MHC.CM.PN ---
received call back from trixie mckeon cm direct line is [phone] she will get back to us with dc plan home [facility] str she is thinking home
[2021-02-11] MEDS: methylPREDNISolone Sod Succ 40 MG/ML VIAL IVPUSH (15:30)
[2021-02-11] MEDS: Enoxaparin Sodium 40 MG/0.4 ML SYRINGE SUBCUT (18:14)
[2021-02-11] MEDS: Azithromycin 500 MG in 0.9 % Sodium Chloride 250 ML 125 MG IV (18:15)
[2021-02-11] MEDS: Montelukast Sodium 10 MG TABLET PO (19:54)
[2021-02-11] MEDS: Mirtazapine 15 MG TABLET PO (19:54)
[2021-02-11] MEDS: lamoTRIgine 100 MG TABLET 300 MG PO (20:07)
[2021-02-12 04:00] VITALS: BP 149/75; PULSE 62; RESP 16; TEMP 36.1; O2SAT 95
[2021-02-12 07:09] LABS: VBG Base Excess 22.8 mmol/L; VBG HCO3 52 mmol/L (22-26); VBG pCO2 86 mmHg; VBG pH 7.39 (7.32-7.43); VBG pO2 45 mmHg
[2021-02-12 07:09] LABS: Venous Blood Gas Refer to POC result
[2021-02-12 07:10] VITALS: BP 130/71; PULSE 65; RESP 17; TEMP 36.1; O2SAT 95
[2021-02-12] MEDS: Albuterol/Iprat 2.5/0.5MG 3 ML AMPUL.NEB INHALE ×2 (07:42→11:25)
[2021-02-12 07:46] VITALS: PULSE 67; O2SAT 93
[2021-02-12 07:52] LABS: Anion Gap 7 (12-20); Blood Urea Nitrogen 16 mg/dL (9-16); Calcium 8.1 mg/dL (8.4-10.2); Chloride 96 mmol/L (96-108); Creatinine Clr Calc Pharmacy 77.6; Estimated Glomerular Filt Rate > 60; Glucose Random 88 mg/dL (60-115); Potassium 4.3 mmol/L (3.3-5.1); Sodium 142 mmol/L (135-145)
[2021-02-12] MEDS: Fluticasone/Vilanterol 200/25 BLST.W.DEV 1 PUFF INHALE (07:52)
[2021-02-12] MEDS: Cholecalciferol (Vitamin D3) 25 MCG TABLET 50 MCG PO (08:17)
[2021-02-12] MEDS: lamoTRIgine 100 MG TABLET 200 MG PO (08:17)
[2021-02-12] MEDS: Multivitamin TABLET 1 TAB PO (08:17)
[2021-02-12] MEDS: Metoprolol Succinate ER 50 MG TAB.ER.24H PO (08:17)
[2021-02-12] MEDS: buPROPion HCl XL 150 MG TAB.ER.24H PO (08:17)
[2021-02-12] MEDS: 0.9 % Sodium Chloride Flush 3 ML SYRINGE IVFLUSH (08:18)
[2021-02-12] MEDS: Magnesium Oxide 400 MG TABLET PO (08:18)
[2021-02-12] MEDS: ARIPiprazole 10 MG TABLET PO (08:18)
[2021-02-12] MEDS: Aspirin Enteric Coated 81 MG TABLET.DR PO (08:18)
[2021-02-12] MEDS: Vilazodone HCL 20 MG TABLET PO (08:18)
[2021-02-12 08:26] LABS: Carbon Dioxide 43 mmol/L (22-29)
[2021-02-12] MEDS: Acetaminophen 325 MG TABLET 650 MG PO (09:30)
[2021-02-12] MEDS: acetaZOLAMIDE 250 MG TABLET PO (09:47)
[2021-02-12 09:53] LABS: Procalcitonin 0.03 ng/mL
--- NOTE | 2021-02-12 10:56 | MHC.CM.PN ---
Addendum entered by Gris Medina 02/12/21 13:17: discharge plan hme today with [facility] to follow up in her home after discharge they will come and transprt her at 2pm, patient has already also met with the [facility] pt/ot and patient , [facility] Addendum entered by Gris Medina 02/12/21 12:02: nedicare imm reviewed with patient earlier this morning discharge summaery discharge instructions along with physical theapry notes faxed to [facility] [phone] autumn [facility]eros Addendum entered by Gris Medina 02/12/21 11:39: MET WITH PATIENT WITH HER BEDSIDE NURSE PRESENT , SHE REPORTED THAT SHE SPOKE WITH [facility] AND THEY ASSURED HER THAT THEY WOULD PROVIDE WHATEVER SHE NEED FOR A SAFE TRANSITING HOME AND PROVIDE ANY EQUIPMENT NEEDED THEY ALSO DISCUSSED THE POSSIBILITY OF A BOOT,, SHE REPORTED THAT SHE WAS NOW IN AGREEMENT WITH THIS, PLAN, I ASKED HER IF SHE FELT SAFE GOING HOME AND REPLIED YES Original Note: NURSE BILINGUAL SECRETARY NOTE ELECTRONIC MEDICAL RECORD REVIEWED ALONG WITH CASE DISCUSSED WITH PHYSICAL THERAPIST ,STAFF NURSE AND HOSPITALIST AND PATIENT . RECOMMENDATIONS ARE FOR SHORT TERM REHAB, I SPOKE WITH [employer] (TRANSFER STATION OPERATOR FOR [facility] [phone] DIRECT LINE [phone]) , SHE EXPLAINED TO ME THAT PATIENT IS PART OF THERE PROGRAM WHICH IS ALL INCLUSIVE THEY WILL PICK HER UP HERE AT THE HOSPITAL ,AND BRING HER PORTABLE OXYGEN FOR TRANSPORT SHE WILL BE ASSESSED ONCE SHE GETS HOME AND WILL HAVE PHYSICAL THERAPY COME SEE HER AND EVALUATE FOR SUCCESSFUL TRANSITION HOME THEY WILL PROVIDE HER WITH NEEDED EQUIPMENT FOR THIS SUCCESS, PATIENT HAS SMALL APT. HER APT IS HANDICAP ACCESSIBLE , SHE WILL ALSO HAVE HOME HEALTH AIDES AND HOMEMAKER RESUMPTION, THERE IS A HOME BENJAMIN AIDE ALSO AVAILABLE THROUGH OUT THE DAY FOR ANY NEW DEVELOPMENTS THAT SHOULD OCCUR , I EXPRESSED WHAT THE DOCTORS CONCERNS WERE, AND REQUESTED PHYSICAL THERAPIST CALL OUR PHYSICAL THERAPIST TO DISCUSS PATIENT NEEDS AND DOCTOR TO DOCTOR DIALOGUE BETWEEN [facility] AND [facility] THIS WAS DECLINED BY [employer] SHE REPORTED THAT HER PHYSICAL THERAPIST CALLED PATIENT AND PATIENT IS IN AGREEMENT WITH THIS PLAN THIS INFORMATION WAS GIVEN TO THE [facility]LIST
[2021-02-12 11:26] VITALS: PULSE 68; O2SAT 92
[2021-02-12 11:36] VITALS: BP 152/66; PULSE 69; RESP 18; TEMP 36.1; O2SAT 91
--- NOTE | 2021-02-12 12:15 | P.F2F_ITS ---
Service Date Service Date: 02/12/21 Encounter Date of encounter: 02/12/21 Reasons for Services Signs and symptoms assessed: respiratory musculoskseltal Reason for penitentiary: medication management, medication treatment and teach disease management Reason for physical therapy: home safety and mobility, therapeutic exercises, gait/transfer training, assess need for DME, ADL training and energy conservation MD Overseeing Care: Mohsen Hunter Homebound: Leaving the home is medically contraindicated at this time without the asist of a device and/or another person due th the listed conditions above and below. Reason homebound: unsteady gait / fall risk, shortness of breath with minimal effort and weakness related to hospital stay Homebound supporting statement: Ms Cartagena was admitted to [facility] 02/09-02/12/21 for respiratory failure related to COPD exacerbation. Please arrange VNA services for medication monitoring, respiratory assessment, and home PT. Certification: Based on the above findings, I certify that this patient is confined to the home and needs intermittent penitentiary care, physical therapy and/or speech therapy, or continues to need occupational therapy. The patient is under my care, and I have initiated the establishment of the plan of care. The patient will be followed by a physician who will periodically review the plan of care.
--- NOTE | 2021-02-12 12:17 | P.DS_ITS ---
DS: Providers Provider Date of Service: 02/12/21 Date of admission: 02/09/21 18:22 Primary care physician: Mohsen Hunter MD Consults: 02/09/21 18:22 Consult to Pulmonology Routine Consulting Provider: Eliot Goldstein Reason for consultation: acute hypoxic respiratory failure Has provider been notified: No DS: Diagnosis Discharge Diagnosis (1) Acute and chronic respiratory failure with hypercapnia: Status: Acute (2) COPD with exacerbation: Status: Acute (3) Acute metabolic encephalopathy: Status: Acute (4) Fall: Status: Acute DS: Medications Discharge Medications Home Medications: Home Medications Medication Instructions Recorded Confirmed Breo Ellipta 1 inh INHALATION DAILY 02/09/21 02/09/21 Nasal Mist 2 spray INTRANASAL QID PRN 02/09/21 02/09/21 Spiriva with HandiHaler 1 cap INHALATION DAILY 02/09/21 02/09/21 Viibryd 20 mg PO DAILY 02/09/21 02/09/21 acetaminophen 1,000 mg PO TID PRN 02/09/21 02/09/21 acetazolamide 250 mg PO MOWEFR@1000 02/09/21 02/09/21 albuterol sulfate [Proventil HFA] 2 puff INHALATION QID PRN 02/09/21 02/09/21 alendronate [Fosamax] 70 mg PO QWEEK 02/09/21 02/09/21 aripiprazole [Abilify] 10 mg PO DAILY 02/09/21 02/09/21 aspirin 81 mg PO DAILY 02/09/21 02/09/21 bupropion HCl [Wellbutrin SR] 200 mg PO DAILY 02/09/21 02/09/21 cholecalciferol (vitamin D3) 50 mcg PO DAILY 02/09/21 02/09/21 [Vitamin D3] lamotrigine 200 mg PO DAILY 02/09/21 02/09/21 lamotrigine 300 mg PO BEDTIME 02/09/21 02/09/21 magnesium oxide 400 mg PO BID 02/09/21 02/09/21 metoprolol succinate 50 mg PO DAILY 02/09/21 02/09/21 mirtazapine 15 mg PO BEDTIME 02/09/21 02/09/21 montelukast 10 mg PO BEDTIME 02/09/21 02/09/21 multivitamin 1 tab PO DAILY 02/09/21 02/09/21 selenium sulfide 10 ml TOPICAL 2XW 02/09/21 02/09/21 Previous Rx's Medication Instructions Recorded prednisone See Rx Instructions .ROUTE 02/12/21 .COMPLEX #20 tab DS: Summary Hospital Course Hospital Course: From history and physical by admitting hospitalist Martha Acharya NP, 02/09/21: 65 year old women presentign to the ED after multiple falls at home. She reported multiple falls over the last several weeks likely more last several months. She does live alone. She was admitted to [facility] from 01/13-01/15 at that time she was treated for acute hypoxic respiratory failure with hypercapnia and falls. Apparently she is on trilogy at home however has been non compliant. She did have set of ABGs there which showed pH of 7.35/93/66/51. She was treated with BiPAP IV steroids DuoNebs, not in ICU. She was discharged home. She was somewhat vague in her history and reported that she had not been on her trilogy prior to being hospitalized at [facility] but was on it after that. It is somewhat difficult to tell if this information is correct. She denied chest pain, reported chronic shortness of breath with cough and green sputum production. She denied fever, chills, nausea, vomiting, diarrhea. She does use 2 L of oxygen at home and denies any increase recently. In the ER chest x-ray did not show any consolidation. Initial ABG showed pH of 7.24/118 / 188/52. She was placed on BiPAP. Her pCO2 remain elevated at 98 however pH did improve. It appears as though this pCO2 is chronically elevated patient was alert and oriented and conversing. Her oxygen saturation was 96% on 2 L. in the ER she was given a dose of Diamox, BiPAP, supplemental oxygen. She will be admitted for further management and treatment of acute hypoxic respiratory failure with hypercapnia. Ms Cartagena was taken off BiPAP in the ED and admitted to the [facility]. Pulmonology was consulted. She was treated with supplemental oxygen, BiPAP at night, and steroid taper with rapid improvement. There was no evidence of bacterial infection, so azithromycin was discontinued. The importance of adhering to her home Trilogy ventilator for at least 8 hours nightly was counseled. She was discharged home with VNA and PT services on a steroid taper. Time Spent with Patient Time attestation: Total time spent providing and/or coordinating discharge services: 40 Discharge coordination time: Greater than 30 minutes Physical Exam Vital Signs: Vital Signs: Last Vital Signs Temp 97 F 02/12/21 11:36 Pulse 69 02/12/21 11:36 Resp 18 02/12/21 11:36 BP 152/66 H 02/12/21 11:36 Pulse Ox 91 L 02/12/21 11:36 Body Mass Index 33.3 Gen: in no acute distress HEENT: sclera anicteric, moist mucus membranes Neck: supple Lungs: diminished bilaterally Heart: regular rate and rhythm, no murmurs Abd: soft, non-tender, non-distended Ext: no edema Skin: warm/well-perfused Neuro: alert and oriented x3, no focal findings Psych: appropriate affect DS: Data Data Completed and Pending Labs on day of discharge: Laboratory Results WBC 5.8 X10*3/uL (4.8-10.8) 02/10/21 05:23 RBC 4.02 X10*6/uL (4.20-5.50) L 02/10/21 05:23 Hgb 12.4 g/dl (12.0-16.0) 02/10/21 05:23 Hct 41.1 % (37-47) 02/10/21 05:23 MCV 102.2 fL (80-98) H 02/10/21 05:23 MCH 30.8 pg (27.0-33.0) 02/10/21 05:23 MCHC 30.2 g/dl (31.0-35.0) L 02/10/21 05:23 RDW 13.2 % (11.0-16.0) 02/10/21 05:23 Plt Count 416 X10*3/uL (160-400) H 02/10/21 05:23 MPV 9.3 fL (9.4-12.3) L 02/10/21 05:23 Immature Gran % (Auto) 0.7 % (0.0-0.4) H 02/10/21 05:23 Neut % (Auto) 86.7 % (45-73) H 02/10/21 05:23 Lymph % (Auto) 6.3 % (20-40) L 02/10/21 05:23 [place] % (Auto) 5.7 % (2-11) 02/10/21 05:23 Eos % (Auto) 0.3 % (0-4) 02/10/21 05:23 Baso % (Auto) 0.3 % (0-2) 02/10/21 05:23 Lymph # (Auto) 0.4 X10*3/uL (1.2-4.9) L 02/10/21 05:23 [place] # (Auto) 0.3 X10*3/uL (0.1-1.2) 02/10/21 05:23 Eos # (Auto) 0.0 X10*3/uL (0.0-0.4) 02/10/21 05:23 Baso # (Auto) 0.0 X10*3/uL (0.0-0.2) 02/10/21 05:23 Abs Immat Gran (auto) 0.04 X10*3/uL (0.00-0.03) H 02/10/21 05:23 Absolute Neuts (auto) 5.1 X10*3/uL (2.0-8.3) 02/10/21 05:23 Absolute Nucleated RBC 0.000 X10*3/uL (0.0-0.012) 02/10/21 05:23 Nucleated RBC % (auto) 0.0 /100WBC (0.0-0.2) 02/10/21 05:23 Smear Tech's Comments VERIFIED 02/10/21 05:23 PT 12.8 SEC (10.8-13.0) 02/09/21 10:42 INR 1.1 (0.9-1.1) 02/09/21 10:42 Hold Blue Top SEE NOTE 02/09/21 10:42 O2 Saturation 90.0 % 02/10/21 13:36 ABG pH at Pt Temp 7.40 (7.35-7.45) 02/10/21 13:36 ABG pH (Temp Correct) 7.41 (7.35-7.45) 02/10/21 13:36 ABG pCO2 at Pt Temp 64 mmHg (32-45) H* 02/10/21 13:36 ABG pCO2 (Temp Corrct 62 mmHg (32-45) H* 02/10/21 13:36 ABG pO2 at Pt Temp 64 mmHg (83-108) L 02/10/21 13:36 ABG pO2 (Temp Correct 61 (83-108) L 02/10/21 13:36 ABG HCO3 40 mmol/L (22-26) H 02/10/21 13:36 ABG Base Excess (Actual) 13.0 mmol/L 02/10/21 13:36 VBG pH 7.39 (7.32-7.43) 02/12/21 07:04 VBG pCO2 86 mmHg 02/12/21 07:04 VBG pO2 45 mmHg 02/12/21 07:04 VBG HCO3 52 mmol/L (22-26) H 02/12/21 07:04 VBG O2 Saturation 67.0 % 02/12/21 07:04 VBG Base Excess 22.8 mmol/L 02/12/21 07:04 Sodium 142 mmol/L (135-145) 02/12/21 06:55 Potassium 4.3 mmol/L (3.3-5.1) 02/12/21 06:55 Chloride 96 mmol/L (96-108) 02/12/21 06:55 Carbon Dioxide 43 mmol/L (22-29) H* 02/12/21 06:55 Anion Gap 7 (12-20) L 02/12/21 06:55 BUN 16 mg/dL (9-16) 02/12/21 06:55 Creatinine 0.71 mg/dL (0.5-1.4) 02/12/21 06:55 Estim Creat Clear Calc 77.6 02/12/21 06:55 Estimated GFR > 60 02/12/21 06:55 Random Glucose 88 mg/dL (60-115) 02/12/21 06:55 Calcium 8.1 mg/dL (8.4-10.2) L 02/12/21 06:55 Magnesium 2.1 mg/dL (1.6-2.6) 02/09/21 11:21 Magnesium Cancelled 02/09/21 11:21 Total Bilirubin 0.5 mg/dL (0.0-1.0) 02/09/21 11:21 Total Bilirubin Cancelled 02/09/21 11:21 Direct Bilirubin < 0.2 mg/dL (0.0-0.5) 02/09/21 11:21 Direct Bilirubin Cancelled 02/09/21 11:21 AST 17 U/L (5-31) 02/09/21 11:21 AST Cancelled 02/09/21 11:21 ALT 18 U/L (0-31) 02/09/21 11:21 ALT Cancelled 02/09/21 11:21 Alkaline Phosphatase 67 U/L (39-117) 02/09/21 11:21 Alkaline Phosphatase Cancelled 02/09/21 11:21 Total Creatine Kinase 30 U/L (26-140) 02/09/21 11:21 Troponin I High Sens 4.4 ng/L (<3.5-17.0) 02/09/21 10:42 B-Natriuretic Peptide 30 pg/mL (<100) 02/09/21 10:42 Total Protein 6.9 g/dL (6.5-8.0) 02/09/21 11:21 Total Protein Cancelled 02/09/21 11:21 Albumin 4.4 g/dL (3.5-5.0) 02/09/21 11:21 Albumin Cancelled 02/09/21 11:21 Vitamin B12 470 pg/mL (200-900) 02/11/21 06:04 Folate 16.6 ng/mL (> or = 4.0) 02/11/21 06:04 Procalcitonin 0.03 ng/mL 02/12/21 06:55 COVID-19 (EDU) Negative (Negative) 02/09/21 11:18 COVID-19 Clin Com See Note 02/09/21 11:18 Impressions Chest X-Ray 02/09/21 09:34 IMPRESSION: Mild coarsening interstitial markings similar to prior studies. Head CT 02/09/21 09:34 IMPRESSION: No acute intracranial process seen. Foot X-Ray 02/09/21 11:27 IMPRESSION: 1. No visible fracture or dislocation or destructive process. 2. Posterior and plantar calcaneal spurs. Discharge Plan Discharge Anticipated Discharge Date/Time: 02/12/21 12:09 Patient Disposition: Home Health Service Referrals: [facility] (MANAGES ALL HER INS AND HOME CARE [Other] (D/C PLAN-HOME AT [facility] AFTER SPEAKING WITH THE TECHNICAL SALES ADVISOR THEY WILL PROVIDE TRANSPORTATION FOR YOU, THEY WILL BRING [employer], FOR TRANSPORT,THEY WILL FILL YOUR PRESCRIPTIONS AND BRING THEM TO YOU , YOU WILL BE ASSESSED UPON DISCHARGE AND BE EVALUATED BY THEIR PHYSICAL THEARPIST,.THEY WILL PROVIDE E HEALTH AIDES AND HOMEMAKER. RESUMPTION OF YOUR HOME OXYGEN AND TRIOLOGY WITH [facility] ) Eliot Goldstein MD [Physician] - Mohsen uHnter MD [Primary Care Provider] - Discharge Medications: New prednisone 10 mg tablet See Rx Instructions .ROUTE .COMPLEX Qty: 20 RF: 0 Continued aripiprazole [Abilify] 10 mg Tablet 10 mg PO DAILY RF: 0 acetaminophen 500 mg Tablet 1,000 mg PO TID PRN (Reason: Headache) RF: 0 aspirin 81 mg Tablet,Delayed Release (Dr/Ec) 81 mg PO DAILY RF: 0 Breo Ellipta 200-25 mcg/dose Blister With Device 1 inh INHALATION DAILY RF: 0 alendronate [Fosamax] 70 mg Tablet 70 mg PO QWEEK RF: 0 lamotrigine 150 mg Tablet 300 mg PO BEDTIME RF: 0 lamotrigine 200 mg Tablet 200 mg PO DAILY RF: 0 magnesium oxide 400 mg magnesium Tablet 400 mg PO BID RF: 0 metoprolol succinate 50 mg Capsule,Sprinkle,Er 24hr 50 mg PO DAILY RF: 0 mirtazapine 15 mg Tablet 15 mg PO BEDTIME RF: 0 montelukast 10 mg Tablet 10 mg PO BEDTIME RF: 0 multivitamin Tablet 1 tab PO DAILY RF: 0 Nasal Mist 0.9 % Aerosol,Mel[place] 2 spray INTRANASAL QID PRN (Reason: Nasal Congestion) RF: 0 albuterol sulfate [Proventil HFA] 90 mcg/actuation Hfa Aerosol Inhaler 2 puff INHALATION QID PRN (Reason: Respiratory Distress) RF: 0 selenium sulfide 1 % Shampoo 10 ml TOPICAL 2XW RF: 0 Viibryd 20 mg Tablet 20 mg PO DAILY RF: 0 cholecalciferol (vitamin D3) [Vitamin D3] 50 mcg (2,000 unit) Capsule 50 mcg PO DAILY RF: 0 bupropion HCl [Wellbutrin SR] 200 mg Tablet Sustained-Release 12 Hr 200 mg PO DAILY RF: 0 acetazolamide 250 mg Tablet 250 mg PO MOWEFR@1000 RF: 0 Spiriva with HandiHaler 18 mcg Capsule, W/Inhalation Device 1 cap INHALATION DAILY RF: 0 Discontinued prednisone 10 mg Tablet 10 mg PO DAILY RF: 0 Discharge Orders: Discharge Order (Routine); Ordered 02/12/21 Ordered By: Puja Goldsmith Diet: advance to usual diet and low salt diet Activity on Discharge: Use cane or walker Stand Alone Forms: Patient Portal Discharge page Care Plan Goals: improvement in breathing Health Concerns: COPD, chronic hypoxia and hypercapnea Plan of Treatment: use Trilogy ventilator at least 8 hours per night continue Spiriva and Breo, with albuterol as needed for rescue continue acetazolamide continue montelukast take prednisone as follows: 40 mg (4 tabs) daily for 2 days, then 30 mg (3 tabs) daily for 2 days, then 20 mg (2 tabs) daily for 2 days, then resume prior dosing of 10 mg (1 tab) daily- further tapering as per your strapper operator see your primary care doctor and your strapper operator in 1-2 weeks Patient Instructions: COPD (Chronic Obstructive Pulmonary Disease) (DC), Ventilator (GEN)
== END 2021-02-12 15:03 | disposition home health service (06) | DRG 190 ==
LOC: HO.ED 16:48 → HO.EDOVER 18:38 → HO.IMC 18:44 → HO.S3 02-11 10:44
PROVIDERS: Nurse Practitioner Acute Care; Physician Assistant; Admitting Provider Family Medicine; Emergency Provider Emergency Medicine; PCP Internal Medicine; Visit Provider Family Medicine
DX: J44.1 Chronic obstructive pulmonary disease with (acute) exacerbation (principal); J96.22 Acute and chronic respiratory failure with hypercapnia; G93.41 Metabolic encephalopathy; J96.21 Acute and chronic respiratory failure with hypoxia; I10 Essential (primary) hypertension; R29.6 Repeated falls; Z91.81 History of falling; F20.9 Schizophrenia, unspecified; Z20.822 Contact with and (suspected) exposure to COVID-19; Z99.81 Dependence on supplemental oxygen; Z88.0 Allergy status to penicillin; Z88.2 Allergy status to sulfonamides; Z88.5 Allergy status to narcotic agent; Z79.52 Long term (current) use of systemic steroids; Z79.82 Long term (current) use of aspirin; Z79.899 Other long term (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 therapy
CPT/HCPCS: 36415; 36600; 70450; 71045; 73630; 80048; 80076; 82550; 82607; 82746; 83735; 83880; 84145; 84484; 85025; 85610; 87635; 93005; 94640; 94660; 96374; 97162; 99285; 99291; J0456; J1650; J2920

== ENCOUNTER → 2021-04-17 10:47 | Outpatient (BNVA) | payer OTHER, MEDICAID, SELFPAY | PROVIDERS: PCP Internal Medicine; Visit Provider Hospitalist | DX: J43.2 Centrilobular emphysema (principal); J96.11 Chronic respiratory failure with hypoxia; J96.12 Chronic respiratory failure with hypercapnia | CPT/HCPCS: 99202 ==

== ENCOUNTER 2021-05-07 14:13 | Outpatient (REF) | payer OTHER, MEDICAID, SELFPAY ==
[2021-05-07 15:18] VITALS: O2SAT 94
[2021-05-07 15:40] LABS: ABG Base Excess 5.5 mmol/L; ABG pH 7.26 (7.35-7.45); ABG pO2 89 mmHg (83-108)
[2021-05-07 15:41] LABS: ABG HCO3 35 mmol/L (22-26); ABG pCO2 76 mmHg (32-45)
[2021-05-07 15:42] LABS: ABG Refer to POC result
== END 2021-05-07 14:14 | disposition home or self-care (01) ==
LOC: HO.RESP 14:13
PROVIDERS: PCP Internal Medicine Rheumatology; Visit Provider Hospitalist
DX: J43.2 Centrilobular emphysema (principal); J96.22 Acute and chronic respiratory failure with hypercapnia; J96.11 Chronic respiratory failure with hypoxia; Z99.81 Dependence on supplemental oxygen; Z79.899 Other long term (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 therapy; Z87.891 Personal history of nicotine dependence
CPT/HCPCS: 36600; 99212

== ENCOUNTER 2021-05-12 12:44 | Outpatient (REF) | payer OTHER, MEDICAID, SELFPAY ==
[2021-05-12 13:13] VITALS: O2SAT 94
[2021-05-12 13:46] LABS: ABG Refer to POC result
[2021-05-12 13:52] LABS: ABG pH 7.33 (7.35-7.45)
[2021-05-12 13:53] LABS: ABG Base Excess 11.8 mmol/L; ABG pCO2 77 mmHg (32-45); ABG pO2 87 mmHg (83-108)
[2021-05-12 13:54] LABS: ABG HCO3 41 mmol/L (22-26)
== END 2021-05-12 12:45 | disposition home or self-care (01) ==
LOC: HO.LAB 12:44
PROVIDERS: PCP Internal Medicine Rheumatology; Visit Provider Hospitalist
DX: J43.2 Centrilobular emphysema (principal); J40 Bronchitis, not specified as acute or chronic; J30.0 Vasomotor rhinitis; J96.12 Chronic respiratory failure with hypercapnia; J96.11 Chronic respiratory failure with hypoxia; Z79.899 Other long term (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 therapy
CPT/HCPCS: 36600; 99212

== ENCOUNTER 2021-05-28 12:58 | Outpatient (REF) | payer OTHER, MEDICAID, SELFPAY ==
[2021-05-28 13:46] LABS: MANUAL DIFF FLAG NO
[2021-05-28 13:57] LABS: ABG Base Excess 18.7 mmol/L; ABG HCO3 49 mmol/L (22-26); ABG pCO2 82 mmHg (32-45); ABG pCO2 TC 90 mmHg (32-45); ABG pH 7.34 (7.35-7.45); ABG pH TC 7.34 (7.35-7.45); ABG pO2 106 mmHg (83-108); ABG pO2 TC 104 (83-108)
[2021-05-28 14:07] LABS: Basophils Absolute Auto 0.1 X10*3/uL (0.0-0.2); Basophils Percent Auto 0.8 % (0-2); Eosinophils Percent Auto 0.3 % (0-4); Hematocrit 41.3 % (37-47); Hemoglobin 12.6 g/dl (12.0-16.0); Imm Gran Abs Auto 0.06 X10*3/uL (0.00-0.03); Imm Gran Pct Auto 0.9 % (0.0-0.4); Lymphocytes Absolute Auto 0.6 X10*3/uL (1.2-4.9); Lymphocytes Percent Auto 9.4 % (20-40); Mean Corpuscular HGB Conc 30.5 g/dl (31.0-35.0); Mean Corpuscular Hemoglobin 30.1 pg (27.0-33.0); Mean Corpuscular Volume 98.6 fL (80-98); Mean Platelet Volume 9.1 fL (9.4-12.3); Monocytes Absolute Auto 0.4 X10*3/uL (0.1-1.2); Monocytes Percent Auto 6.3 % (2-11); Neutrophils Absolute Auto 5.2 X10*3/uL (2.0-8.3); Neutrophils Percent Auto 82.3 % (45-73); Platelet Count 503 X10*3/uL (160-400); Red Blood Count 4.19 X10*6/uL (4.20-5.50); Red Cell Distribution Width 13.6 % (11.0-16.0); White Blood Count 6.4 X10*3/uL (4.8-10.8)
[2021-05-28 14:27] LABS: Anion Gap 11 (12-20); Blood Urea Nitrogen 14 mg/dL (9-16); Calcium 9.7 mg/dL (8.4-10.2); Carbon Dioxide 38 mmol/L (22-29); Chloride 96 mmol/L (96-108); Estimated Glomerular Filt Rate > 60; Glucose Random 124 mg/dL (60-115); Potassium 4.9 mmol/L (3.3-5.1); Sodium 140 mmol/L (135-145)
[2021-05-28 15:19] LABS: Erythrocyte Sedimentation Rate 10 MM/HR (0-20)
[2021-05-29 07:11] LABS: Theophylline 8.7
== END 2021-05-28 12:59 | disposition home or self-care (01) ==
LOC: HO.LAB 12:58
PROVIDERS: Visit Provider Hospitalist
DX: J43.2 Centrilobular emphysema (principal); J96.11 Chronic respiratory failure with hypoxia; J96.12 Chronic respiratory failure with hypercapnia; J40 Bronchitis, not specified as acute or chronic; Z79.899 Other long term (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 therapy; Z87.891 Personal history of nicotine dependence
CPT/HCPCS: 36415; 80048; 80198; 85025; 85652; 99212

== ENCOUNTER 2021-06-11 12:56 | Outpatient (REF) | payer OTHER, MEDICAID, SELFPAY ==
[2021-06-11 13:22] LABS: ABG Base Excess 11.2 mmol/L; ABG HCO3 41 mmol/L (22-26); ABG pCO2 TC 78 mmHg (32-45); ABG pH TC 7.32 (7.35-7.45); ABG pO2 TC 97 (83-108)
[2021-06-11 14:16] LABS: ABG Refer to POC result
== END 2021-06-11 12:57 | disposition home or self-care (01) ==
LOC: HO.LAB 12:56
PROVIDERS: PCP Internal Medicine Rheumatology; Visit Provider Hospitalist
DX: J43.2 Centrilobular emphysema (principal); J30.0 Vasomotor rhinitis; J96.12 Chronic respiratory failure with hypercapnia; J96.11 Chronic respiratory failure with hypoxia; Z87.891 Personal history of nicotine dependence
CPT/HCPCS: 82803; 99212

== ENCOUNTER → 2021-07-06 14:03 | Outpatient (BNVA) | payer OTHER, MEDICAID, SELFPAY | PROVIDERS: PCP Internal Medicine Rheumatology; Visit Provider Hospitalist | DX: J43.2 Centrilobular emphysema (principal); J96.11 Chronic respiratory failure with hypoxia; J96.12 Chronic respiratory failure with hypercapnia; J30.0 Vasomotor rhinitis; G47.00 Insomnia, unspecified; M79.89 Other specified soft tissue disorders | CPT/HCPCS: 99212 ==

== ENCOUNTER 2021-07-28 13:45 | Outpatient (REF) | payer OTHER, MEDICAID, SELFPAY ==
[2021-07-28 14:09] VITALS: O2SAT 93
[2021-07-28 14:31] LABS: ABG Refer to POC result
[2021-07-28 14:35] LABS: ABG Base Excess 9.8 mmol/L; ABG HCO3 39 mmol/L (22-26); ABG pO2 95 mmHg (83-108)
[2021-07-28 14:36] LABS: ABG pCO2 79 mmHg (32-45)
== END 2021-07-28 13:46 | disposition home or self-care (01) ==
LOC: HO.LAB 13:45
PROVIDERS: PCP Internal Medicine Rheumatology; Visit Provider Hospitalist
DX: J43.2 Centrilobular emphysema (principal); J96.12 Chronic respiratory failure with hypercapnia; J96.11 Chronic respiratory failure with hypoxia; J30.0 Vasomotor rhinitis; G47.00 Insomnia, unspecified; M79.89 Other specified soft tissue disorders; Z79.899 Other long term (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 therapy; Z87.891 Personal history of nicotine dependence
CPT/HCPCS: 36600; 82803; 99212

== ENCOUNTER → 2021-08-19 11:00 | Outpatient (BNVA) | payer OTHER, MEDICAID, SELFPAY | PROVIDERS: Visit Provider Hospitalist | DX: J43.2 Centrilobular emphysema (principal); J96.11 Chronic respiratory failure with hypoxia; J96.12 Chronic respiratory failure with hypercapnia; J30.0 Vasomotor rhinitis; G47.00 Insomnia, unspecified; M79.89 Other specified soft tissue disorders; L03.90 Cellulitis, unspecified | CPT/HCPCS: 99212 ==

== ENCOUNTER → 2021-09-10 09:05 | Outpatient (BNVA) | payer OTHER, MEDICAID, SELFPAY | PROVIDERS: PCP Internal Medicine Rheumatology; Visit Provider Hospitalist | DX: J43.2 Centrilobular emphysema (principal); J96.11 Chronic respiratory failure with hypoxia; J96.12 Chronic respiratory failure with hypercapnia; J30.0 Vasomotor rhinitis; G47.00 Insomnia, unspecified; M79.89 Other specified soft tissue disorders | CPT/HCPCS: 99212 ==

== ENCOUNTER 2021-10-05 06:04 | Inpatient (IN) | payer OTHER, MEDICAID, SELFPAY ==
[2021-10-05] VITALS (10 sets, daily range): BP systolic 130–159; BP diastolic 52–74; PULSE 78–96; RESP 12–29; TEMP 36.8–37.2; O2SAT 88–98; BMI 27.4
--- NOTE | 2021-10-05 | ECG_ITS ---
Test Reason : DIZZINESS Blood Pressure : / mmHG Vent. Rate : 085 BPM Atrial Rate : 085 BPM P-R Int : 144 ms QRS Dur : 080 ms QT Int : 340 ms P-R-T Axes : 080 090 052 degrees QTc Int : 404 ms Normal sinus rhythm Rightward axis Intra-ventricular conduction delay Abnormal ECG No significant changes seen Referred By: Generic ED Physician Electronically Signed By:KRISTOPHER BREWER MD
--- NOTE | ~2021-10-05 | CT_ITS ---
EXAM: Noncontrast CT scan of the head and cervical spine. INDICATION: Fall. Head injury. COMPARISON: Head CT 02/09/2021 TECHNIQUE: Axial slices were obtained from skull base to vertex and displayed. This was followed by helical, multislice, multidetector axial images from the occiput to the upper thorax. Coronal and sagittal reformats of the cervical spine in addition to coronal reformats of the head were obtained at the technologist workstation. Today's examination is mildly limited secondary to motion artifact. DLP: 1149 mGy-cm FINDINGS: HEAD: There is no evidence of acute intracranial hemorrhage or territorial infarction. No abnormal mass effect or midline shift is appreciated. Salguero-white differentiation is well preserved. No extra-axial fluid collections. The ventricular system and cortical sulci are normal in size. There are subtle areas of low density in the periventricular and subcortical white matter, most consistent with sequelae of microvascular ischemic change. The osseous structures and soft tissues are normal. . The visualized paranasal sinuses and mastoid air cells are well aerated. SPINE: The cervical spine is visualized in its entirety. There is mild straightening of normal cervical lordosis. Alignment is otherwise unremarkable. Vertebral body heights are maintained. Mild narrowing of the C5/C6 disc space height. Prominent posterior disc osteophyte complex at C6/C7. Mild diffuse facet hypertrophy bilaterally. No prevertebral soft tissue swelling. CT/CT cervical spine wo con IMPRESSION: 1. No acute intracranial pathology. 2. No fractures or dislocations of the cervical spine. This CT examination was performed using dose optimization techniques as appropriate, variously including the following: *Automated exposure control *Adjustment of mA and/or kV according to patient size (this includes techniques or standardized protocols for targeted exams where dose is matched to indication/reason for exam; i.e. extremities or head) *Use of iterative reconstruction technique
--- NOTE | ~2021-10-05 | XR_ITS ---
EXAMINATION: XR CHEST CLINICAL INFORMATION: Shortness of breath COMPARISON: Chest x-ray 02/09/2021 TECHNIQUE: Frontal view of the chest was obtained. FINDINGS: Cardiac silhouette is normal in size. The lungs are adequately aerated. Similar diffuse coarsening of the interstitial markings consistent with chronic changes. There is no lobar consolidation. No pleural effusion or pneumothorax. Degenerative changes of the spine. XR/XR chest 1V IMPRESSION: Stable chronic changes of the chest. No acute pulmonary pathology identified.
[2021-10-05 06:32] LABS: MANUAL DIFF FLAG NO
[2021-10-05 06:44] LABS: Basophils Percent Auto 0.5 % (0-2); Eosinophils Absolute Auto 0.2 X10*3/uL (0.0-0.4); Eosinophils Percent Auto 3.7 % (0-4); Hematocrit 43.2 % (37.0-47.0); Hemoglobin 12.8 g/dl (12.0-16.0); Imm Gran Abs Auto 0.02 X10*3/uL (0.00-0.03); Imm Gran Pct Auto 0.3 % (0.0-0.4); Lymphocytes Absolute Auto 0.7 X10*3/uL (1.2-4.9); Lymphocytes Percent Auto 11.7 % (20-40); Mean Corpuscular HGB Conc 29.6 g/dl (31.0-35.0); Mean Corpuscular Hemoglobin 29.7 pg (27.0-33.0); Mean Corpuscular Volume 100.2 fL (80.0-98.0); Mean Platelet Volume 9.3 fL (9.4-12.3); Monocytes Absolute Auto 0.7 X10*3/uL (0.1-1.2); Monocytes Percent Auto 11.2 % (2-11); Neutrophils Absolute Auto 4.4 x10*3/uL (2.0-8.3); Neutrophils Percent Auto 72.6 % (45-73); Platelet Count 399 X10*3/uL (160-400); Red Blood Count 4.31 X10*6/uL (4.20-5.50); Red Cell Distribution Width 13.9 % (11.0-16.0)
[2021-10-05 06:52] LABS: Alanine Aminotransferase 16 U/L (0-31); Albumin Level 4.2 g/dL (3.5-5.0); Alkaline Phosphatase 74 U/L (39-117); Anion Gap 10 (12-20); Aspartate Amino Transferase 22 U/L (5-31); Bilirubin Total 0.2 mg/dL (0.0-1.0); Blood Urea Nitrogen 12 mg/dL (9-16); Calcium 8.6 mg/dL (8.4-10.2); Carbon Dioxide 41 mmol/L (22-29); Chloride 97 mmol/L (96-108); Creatinine Clr Calc Pharmacy 68.2; Estimated Glomerular Filt Rate > 60; Glucose Fasting 105 mg/dL (60-99); Potassium 4.3 mmol/L (3.3-5.1); Sodium 144 mmol/L (135-145); Total Protein 6.8 g/dL (6.5-8.0)
--- NOTE | 2021-10-05 07:17 | ECG_ITS ---
Test Reason : fall Blood Pressure : / mmHG Vent. Rate : 084 BPM Atrial Rate : 084 BPM P-R Int : 140 ms QRS Dur : 084 ms QT Int : 348 ms P-R-T Axes : 074 081 057 degrees QTc Int : 411 ms Sinus rhythm with Premature atrial complexes with Aberrant conduction Possible Left atrial enlargement Intra-ventricular conduction delay Nonspecific ST abnormality Abnormal ECG Premature atrial complexes are new Referred By: Gypsy Simmons Electronically Signed By:KRISTOPHER BREWER MD
--- NOTE | 2021-10-05 07:34 | ED_ITS ---
HPI - General Adult General Chief complaint: Fall Stated complaint: FALL S/P WEAKNESS Time Seen by Provider: 10/05/21 07:09 History of Present Illness HPI narrative: Patient is a 66-year-old female presented to ED after multiple falls. She has been falling more often recently. Patient lives alone. Currently under the care of Dr. Acharya in the pulmonary department. Baseline is on 3 L of oxygen at home. 4 L of oxygen at night. She uses trilogy at night. Patient claims compliance. She has a long history of acute on chronic respiratory failure. Multiple falls documented in the past. Patient complaining of generalized malaise again. There is no chest pain. No coughing or congestion no upper respiratory symptoms that is new. Patient received all her coronavirus vaccine. Patient feel very tired generalized malaise. When she fell she might hit her head. She is not on any blood thinners. No nausea no vomiting. No focal weakness. Patient is from home. Denies any nausea vomiting diarrhea. No change in medication Related Data Home Medications Medication Instructions Recorded Confirmed acetaminophen 500 mg tablet 1,000 mg PO TID PRN 02/09/21 10/05/21 albuterol sulfate 90 mcg/actuation 2 puff INHALATION QID PRN 02/09/21 10/05/21 aerosol inhaler (Proventil HFA) alendronate 70 mg tablet (Fosamax) 70 mg PO QWEEK 02/09/21 10/05/21 aripiprazole 10 mg tablet (Abilify) 10 mg PO DAILY 02/09/21 10/05/21 aspirin 81 mg tablet,delayed 81 mg PO DAILY 02/09/21 10/05/21 release cholecalciferol (vitamin D3) 50 50 mcg PO DAILY 02/09/21 10/05/21 mcg (2,000 unit) capsule (Vitamin D3) fluticasone furoate 200 1 inh INHALATION DAILY 02/09/21 10/05/21 mcg-vilanterol 25 mcg/dose inhalation powder (Breo Ellipta) lamotrigine 150 mg tablet 300 mg PO BEDTIME 02/09/21 10/05/21 lamotrigine 200 mg tablet 200 mg PO DAILY 02/09/21 10/05/21 magnesium oxide 400 mg PO BID 02/09/21 10/05/21 metoprolol succinate 50 mg capsule 50 mg PO DAILY 02/09/21 10/05/21 sprinkle, ext. release 24 hr montelukast 10 mg tablet 10 mg PO BEDTIME 02/09/21 10/05/21 multivitamin 1 tab PO DAILY 02/09/21 10/05/21 selenium sulfide 1 % shampoo 10 ml TOPICAL 2XW 02/09/21 10/05/21 tiotropium bromide 18 mcg capsule 1 cap INHALATION DAILY 02/09/21 10/05/21 with inhalation device (Spiriva with HandiHaler) vilazodone 20 mg tablet (Viibryd) 20 mg PO DAILY 02/09/21 10/05/21 mirtazapine 15 mg tablet 15 mg PO BEDTIME 09/10/21 10/05/21 ondansetron HCl 4 mg tablet 4 mg PO Q8H PRN 09/10/21 10/05/21 (Zofran) sennosides 8.6 mg tablet (Senokot) 8.6 mg PO BEDTIME 09/10/21 10/05/21 acetazolamide 250 mg tablet 250 mg PO MOFR 10/05/21 10/05/21 crisaborole 2 % topical ointment 1 appl TOPICAL BID 10/05/21 10/05/21 gabapentin 300 mg capsule 300 mg PO BEDTIME 10/05/21 10/05/21 [id number] 3.3 5 drp OTIC (EARS) TID 10/05/21 10/05/21 mg-3 mg-10 mg-0.5 mg/mL ear drops,susp (Cortisporin-TC) nicotine 10 mg inhalation 1 inh INHALATION Q2H PRN 10/05/21 10/05/21 cartridge (Nicotrol) oxymetazoline 0.05 % nasal spray 2 spray INTRANASAL QID PRN 10/05/21 10/05/21 polyethylene glycol 3350 17 17 g PO DAILY 10/05/21 10/05/21 gram/dose oral powder prednisone 10 mg tablet 10 mg PO Q48H 10/05/21 10/05/21 Previous Rx's Medication Instructions Recorded ipratropium bromide 42 mcg (0.06 2 spray INTRANASAL TID 30 Days #15 05/12/21 %) nasal spray ml theophylline 300 mg 300 mg PO Q12H 30 Days #60 tab 05/12/21 tablet,extended release,12 hr melatonin 3 mg tablet (Melatin) 6 mg PO BEDTIME PRN 30 Days #60 tab 06/11/21 Allergies Allergy/AdvReac Type Severity Reaction Status Date / Time codeine [Codeine] Allergy Intermediate RESTLESS/RA Verified 10/05/21 06:14 SH Sulfa (Sulfonamide Allergy Intermediate HIVES Verified 10/05/21 06:14 Antibiotics) haloperidol [Haldol] Allergy Unknown Palpitation Verified 10/05/21 06:14 s Review of Systems Review of Systems: Positive generalized malaise Positive shortness of breath All system reviewed otherwise negative [facility] Past Medical History Attestation statement: The following information was validated with the patient. Medical History Acute and chronic respiratory failure with hypercapnia Acute metabolic encephalopathy Bronchitis Chronic respiratory failure COPD (chronic obstructive pulmonary disease) COPD with exacerbation Fall Insomnia Limb swelling Vasomotor rhinitis Family History Family History Other Hypertension Social History Social History Household Members: None Housing: Apartment Alcohol intake: unknown Patient Tobacco Use Status: Former Tobacco user Tobacco use type: Cigarette Years Smoked: 20+ years Use of substances other than those prescribed or required for medical reasons: No Advance Directives: Yes Advance Directives on File: Yes Advance Directives Date on File: 02/13/21 service: No Physical Exam Vital Signs: Vital Signs: Last Vital Signs Temp 98.3 F 10/05/21 08:33 Pulse 79 10/05/21 08:33 Resp 29 H 10/05/21 11:16 BP 134/52 L 10/05/21 08:33 Pulse Ox 92 10/05/21 08:33 Oxygen Flow Rate 4 10/05/21 06:07 Body Mass Index 27.4 Appearance: Alert. Oriented X3. No acute distress. Eyes: Pupils equal, round and reactive to light. ENT: Pharynx normal. Neck: Normal inspection. Neck supple. No lymph nodes noted. No crepitus CVS: Normal heart rate and rhythm. Pulses normal. Normal S1 and S2 Respiratory: Diminished breath sounds bilaterally Abdomen: Soft and nontender. No rigidity. No distention. good BS x4 Skin: Skin warm and dry. Normal skin color. Normal skin turgor. Extremities: No lower extremity edema. Neurovascular intact to all extremities. No Lacerations. No Rash Neuro: Oriented X 3. No motor deficit. No sensory deficit. Moving all extermities. No slurred speech Medical Decision Making MDM Narrative Medical decision making narrative: Patient's ABG showed a pH of 7.29 with a pCO2 of over 100. Consistent with acute on chronic CO2 retention. We will go ahead start patient on BiPAP. Patient's case discussed with Pulmonary. Dr. Clemens aware. Concur with the BiPAP. Will start patient on additional steroids for COPD. CT scan of the head and C-spine were grossly negative for any acute evidence of traumatic injury. Chest x-ray showed no significant findings. Patient's COVID test was negative. Patient's case will be discussed with the hospitalist team for admission. Medical Records Medical records reviewed: Yes I reviewed the patient's medical records. Lab Data Result diagrams: 10/05/21 06:23 10/05/21 06:23 Labs: Lab Results 10/05/21 10/05/21 10/05/21 Range/Units 06:23 06:23 07:50 WBC 6.0 (4.8-10.8) X10*3/uL RBC 4.31 (4.20-5.50) X10*6/uL Hgb 12.8 (12.0-16.0) g/dl Hct 43.2 (37.0-47.0) % MCV 100.2 H (80.0-98.0) fL MCH 29.7 (27.0-33.0) pg MCHC 29.6 L (31.0-35.0) g/dl RDW 13.9 (11.0-16.0) % Plt Count 399 (160-400) X10*3/uL MPV 9.3 L (9.4-12.3) fL Immature Gran % (Auto) 0.3 (0.0-0.4) % Neut % (Auto) 72.6 (45-73) % Lymph % (Auto) 11.7 L (20-40) % [place] % (Auto) 11.2 H (2-11) % Eos % (Auto) 3.7 (0-4) % Baso % (Auto) 0.5 (0-2) % Lymph # (Auto) 0.7 L (1.2-4.9) X10*3/uL [place] # (Auto) 0.7 (0.1-1.2) X10*3/uL Eos # (Auto) 0.2 (0.0-0.4) X10*3/uL Baso # (Auto) 0.0 (0.0-0.2) X10*3/uL Abs Immat Gran (auto) 0.02 (0.00-0.03) X10*3/uL Absolute Neuts (auto) 4.4 (2.0-8.3) x10*3/uL Absolute Nucleated RBC 0.000 (0.0-0.012) X10*3/uL Nucleated RBC % (auto) 0.0 (0.0-0.2) /100WBC O2 Saturation 97.0 % ABG pH at Pt Temp 7.29 L (7.35-7.45) ABG pH (Temp Correct) 7.29 L (7.35-7.45) ABG pCO2 at Pt Temp 104 H* (32-45) mmHg ABG pCO2 (Temp Corrct 103 H* (32-45) mmHg ABG pO2 at Pt Temp 94 (83-108) mmHg ABG pO2 (Temp Correct 93 (83-108) ABG HCO3 50 H (22-26) mmol/L ABG Base Excess (Actual) 18.7 mmol/L Sodium 144 (135-145) mmol/L Potassium 4.3 (3.3-5.1) mmol/L Chloride 97 (96-108) mmol/L Carbon Dioxide 41 H* (22-29) mmol/L Anion Gap 10 L (12-20) BUN 12 (9-16) mg/dL Creatinine 0.81 (0.5-1.4) mg/dL Estim Creat Clear Calc 68.2 Estimated GFR > 60 Fasting Glucose 105 H (60-99) mg/dL Calcium 8.6 D (8.4-10.2) mg/dL Total Bilirubin 0.2 (0.0-1.0) mg/dL AST 22 (5-31) U/L ALT 16 (0-31) U/L Alkaline Phosphatase 74 (39-117) U/L Troponin I High Sens (<3.5-17.0) ng/L B-Natriuretic Peptide (<100) pg/mL Total Protein 6.8 (6.5-8.0) g/dL Albumin 4.2 (3.5-5.0) g/dL COVID-19 (EDU) (Negative) COVID-19 Clin Com 10/05/21 10/05/21 Range/Units 08:57 13:18 WBC (4.8-10.8) X10*3/uL RBC (4.20-5.50) X10*6/uL Hgb (12.0-16.0) g/dl Hct (37.0-47.0) % MCV (80.0-98.0) fL MCH (27.0-33.0) pg MCHC (31.0-35.0) g/dl RDW (11.0-16.0) % Plt Count (160-400) X10*3/uL MPV (9.4-12.3) fL Immature Gran % (Auto) (0.0-0.4) % Neut % (Auto) (45-73) % Lymph % (Auto) (20-40) % [place] % (Auto) (2-11) % Eos % (Auto) (0-4) % Baso % (Auto) (0-2) % Lymph # (Auto) (1.2-4.9) X10*3/uL [place] # (Auto) (0.1-1.2) X10*3/uL Eos # (Auto) (0.0-0.4) X10*3/uL Baso # (Auto) (0.0-0.2) X10*3/uL Abs Immat Gran (auto) (0.00-0.03) X10*3/uL Absolute Neuts (auto) (2.0-8.3) x10*3/uL Absolute Nucleated RBC (0.0-0.012) X10*3/uL Nucleated RBC % (auto) (0.0-0.2) /100WBC O2 Saturation % ABG pH at Pt Temp (7.35-7.45) ABG pH (Temp Correct) (7.35-7.45) ABG pCO2 at Pt Temp (32-45) mmHg ABG pCO2 (Temp Corrct (32-45) mmHg ABG pO2 at Pt Temp (83-108) mmHg ABG pO2 (Temp Correct (83-108) ABG HCO3 (22-26) mmol/L ABG Base Excess (Actual) mmol/L Sodium (135-145) mmol/L Potassium (3.3-5.1) mmol/L Chloride (96-108) mmol/L Carbon Dioxide (22-29) mmol/L Anion Gap (12-20) BUN (9-16) mg/dL Creatinine (0.5-1.4) mg/dL Estim Creat Clear Calc Estimated GFR Fasting Glucose (60-99) mg/dL Calcium (8.4-10.2) mg/dL Total Bilirubin (0.0-1.0) mg/dL AST (5-31) U/L ALT (0-31) U/L Alkaline Phosphatase (39-117) U/L Troponin I High Sens 4.6 (<3.5-17.0) ng/L B-Natriuretic Peptide 28 (<100) pg/mL Total Protein (6.5-8.0) g/dL Albumin (3.5-5.0) g/dL COVID-19 (EDU) Negative (Negative) COVID-19 Clin Com See Note Critical Care Time Critical Care Time Critical Care Time: Yes Total Critical Care Time: 40 Attestation: I have personally provided 40 minutes of critical care time exclusive of time spent on separately billable procedures. Time includes review of lab data, radiology results, discussion with consultants, and monitoring for potential decompensation. Interventions were performed as documented above Discharge Plan Discharge Clinical Impression: COPD (chronic obstructive pulmonary disease), Chronic respiratory failure Patient Disposition: Admitted As Inpatient
[2021-10-05 08:00] LABS: ABG Base Excess 18.7 mmol/L; ABG HCO3 50 mmol/L (22-26); ABG pCO2 104 mmHg (32-45); ABG pCO2 TC 103 mmHg (32-45); ABG pH 7.29 (7.35-7.45); ABG pH TC 7.29 (7.35-7.45); ABG pO2 94 mmHg (83-108); ABG pO2 TC 93 (83-108)
[2021-10-05 08:00] LABS: ABG Refer to POC result
[2021-10-05] MEDS: methylPREDNISolone Sod Succ 125 MG/2 ML VIAL IVPUSH (09:13)
[2021-10-05 09:29] LABS: B Type Natriuretic Peptide 28 pg/mL (<100); Troponin-I High Sensitivity 4.6 ng/L (<3.5-17.0)
--- NOTE | 2021-10-05 13:36 | PHA.MEDREC ---
Pharmacy Consult ? Medication Reconciliation Pharmacy has completed the medication reconciliation. Patient use [facility] a [facility] that delivers medications. Pharmacy faxed medication list of active medications. Grace Saavedra, JackelineD
[2021-10-05 13:45] LABS: COVID-19 Test Negative (Negative); IDNOW Serial# 9DD0AD1C
[2021-10-05] MEDS: Albuterol/Iprat 2.5/0.5MG 3 ML AMPUL.NEB INHALE ×2 (15:44→20:01)
[2021-10-05 16:14] LABS: Procalcitonin 0.03 ng/mL
--- NOTE | 2021-10-05 16:15 | PM.IMHP ---
History of Present Illness Date of Service: 10/05/21 66yo F with COPD with chronic hypoxic + hypercarbic respiratory failure on 3-4L of O2 and Trilogy ventilator, prior intubation, fully vaccinated against COVID-19, presenting after suddenly losing consciousness and falling in context of generalized malaise. Chronic dyspnea, no worse than usual. No purulent sputum and no fever. No chest pain. No headache. Lives alone; no sick contacts. No recent medication changes. She sees Dr Acharya at [facility] Pulmonology. In the ED, ABG, showed pCO2 of 104 with pH 7.29, only partially compensated with serum bicarbonate of 41. She was started on BiPAP. CT of the head and C-spine were negative for acute injury. COVID-19 EDU was negative. CXR showed chronic coarse interstitial markings. WBC count was normal. She was taken of BiPAP and feels much better. A repeat ABG is pending. Review of Systems Review of Systems: Yes all other systems are reviewed and are negative [facility] Medical History (Updated 10/05/21 @ 16:23 by Puja Goldsmith MD) Acute and chronic respiratory failure with hypercapnia Acute metabolic encephalopathy Bipolar depression Bronchitis Chronic respiratory failure COPD (chronic obstructive pulmonary disease) COPD with exacerbation Eczema Fall Insomnia Limb swelling Vasomotor rhinitis Family History Other Hypertension Pertinent family history: COPD Social History Household Members: None Housing: Apartment Alcohol intake: unknown Patient Tobacco Use Status: Former Tobacco user Tobacco use type: Cigarette Years Smoked: 20+ years Use of substances other than those prescribed or required for medical reasons: No Advance Directives: Yes Advance Directives on File: Yes Advance Directives Date on File: 02/13/21 service: No Meds Allergies Allergy/AdvReac Type Severity Reaction Status Date / Time codeine [Codeine] Allergy Intermediate RESTLESS/RA Verified 10/05/21 06:14 SH Sulfa (Sulfonamide Allergy Intermediate HIVES Verified 10/05/21 06:14 Antibiotics) haloperidol [Haldol] Allergy Unknown Palpitation Verified 10/05/21 06:14 s Active Medications: Current Medications Acetaminophen (Acetaminophen 325 Mg Tablet) 650 mg PO TID PRN PRN Reason: Headache Acetazolamide (Acetazolamide 250 Mg Tablet) 250 mg PO MoFr@0900 [facility] Albuterol Sulfate (Albuterol Sulfate (0.083%) 2.5 Mg/3 Ml Vial.Neb) 2.5 mg INHALE Q2H PRN PRN Reason: shortness of breath/wheeze Albuterol/Ipratropium (Albuterol/Iprat 2.5/0.5mg 3 Ml Ampul.Neb) 3 ml INHALE RQ4H WHILE AWAKE [facility] Last Admin: 10/05/21 15:44 Dose: 3 ml Documented by: Alendronate Sodium (Alendronate Sodium 70 Mg Tablet) 70 mg PO Mo@0600 [facility] Aripiprazole (Aripiprazole 10 Mg Tablet) 10 mg PO DAILY [facility] Aspirin (Aspirin Enteric Coated 81 Mg Tablet.Dr) 81 mg PO DAILY [facility] Fluticasone/Vilanterol (Fluticasone/Vilanterol 200/25 Blst.W.Dev) 1 puff INHALE DAILY [facility] Gabapentin (Gabapentin 300 Mg Capsule) 300 mg PO BEDTIME [facility] Ipratropium Reston (Ipratropium Reston Regan 0.06 % 15 Ml [place]) 2 spray NOSTRIL-B TID [facility] Lamotrigine (Lamotrigine 100 Mg Tablet) 300 mg PO BEDTIME [facility] Lamotrigine (Lamotrigine 100 Mg Tablet) 200 mg PO DAILY [facility] Magnesium Oxide (Magnesium Oxide 400 Mg Tablet) 400 mg PO BID [facility] Melatonin (Melatonin 3 Mg Tablet) 6 mg PO BEDTIME PRN PRN Reason: sleep Methylprednisolone Sodium Succinate (Methylprednisolone Sod Succ 125 Mg/2 Ml Vial) 60 mg IVPUSH Q8H [facility] Mirtazapine (Mirtazapine 15 Mg Tablet) 15 mg PO BEDTIME [facility] Montelukast Sodium (Montelukast Sodium 10 Mg Tablet) 10 mg PO BEDTIME [facility] Multivitamins/Vitamin C (Multivitamin Tablet) 1 tab PO DAILY [facility] Non-Formulary Medication (Qljisfdv-Oezbtp-Nu-Thonzonium [Cortisporin-Tc]) 5 drop EAR-BOTH TID [facility] Ondansetron HCl (Ondansetron Odt 4 Mg Tab.Rapdis) 4 mg TRANSLINGU Q8H PRN PRN Reason: Nausea Oxymetazoline HCl (Oxymetazoline Hcl 0.05 % Nasal 15 Ml [place]) 2 spray NOSTRIL-B QID PRN PRN Reason: Nasal Congestion Pharmacy Consult (Consult Rx Perform Med Rec) 1 each MISCELLANE ONCE PRN PRN Reason: Consult order Polyethylene Glycol (Polyethylene Glycol 3350 17 Gm Powd.Pack) 17 gm PO DAILY ALYSSA Senna (Sennosides 8.6 Mg Tablet) 8.6 mg PO BEDTIME ALYSSA Theophylline (Theophylline Anhydrous Er 300 Mg Tab.Er.12h) 300 mg PO BID ALYSSA Tiotropium Reston (Tiotropium Reston 18 Mcg Cap.W.Dev) 1 puff INHALE RDAILY ALYSSA Vilazodone HCl (Vilazodone Hcl 20 Mg Tablet) 20 mg PO DAILY ALYSSA Vitamin D (Cholecalciferol (Vitamin D3) 25 Mcg Tablet) 50 mcg PO DAILY [facility] Home Medications Medication Instructions Recorded Confirmed Last Taken Type acetaminophen 500 mg tablet 1,000 mg PO TID PRN 02/09/21 10/05/21 Unknown History albuterol sulfate 90 mcg/actuation 2 puff INHALATION QID PRN 02/09/21 10/05/21 Unknown History aerosol inhaler (Proventil HFA) alendronate 70 mg tablet (Fosamax) 70 mg PO QWEEK 02/09/21 10/05/21 Unknown History aripiprazole 10 mg tablet (Abilify) 10 mg PO DAILY 02/09/21 10/05/21 Unknown History aspirin 81 mg tablet,delayed 81 mg PO DAILY 02/09/21 10/05/21 Unknown History release cholecalciferol (vitamin D3) 50 50 mcg PO DAILY 02/09/21 10/05/21 Unknown History mcg (2,000 unit) capsule (Vitamin D3) fluticasone furoate 200 1 inh INHALATION DAILY 02/09/21 10/05/21 Unknown History mcg-vilanterol 25 mcg/dose inhalation powder (Breo Ellipta) lamotrigine 150 mg tablet 300 mg PO BEDTIME 02/09/21 10/05/21 Unknown History lamotrigine 200 mg tablet 200 mg PO DAILY 02/09/21 10/05/21 Unknown History magnesium oxide 400 mg PO BID 02/09/21 10/05/21 Unknown History metoprolol succinate 50 mg capsule 50 mg PO DAILY 02/09/21 10/05/21 Unknown History sprinkle, ext. release 24 hr montelukast 10 mg tablet 10 mg PO BEDTIME 02/09/21 10/05/21 Unknown History multivitamin 1 tab PO DAILY 02/09/21 10/05/21 Unknown History selenium sulfide 1 % shampoo 10 ml TOPICAL 2XW 02/09/21 10/05/21 Unknown History tiotropium bromide 18 mcg capsule 1 cap INHALATION DAILY 02/09/21 10/05/21 Unknown History with inhalation device (Spiriva with HandiHaler) vilazodone 20 mg tablet (Viibryd) 20 mg PO DAILY 02/09/21 10/05/21 Unknown History mirtazapine 15 mg tablet 15 mg PO BEDTIME 09/10/21 10/05/21 Unknown History ondansetron HCl 4 mg tablet 4 mg PO Q8H PRN 09/10/21 10/05/21 Unknown History (Zofran) sennosides 8.6 mg tablet (Senokot) 8.6 mg PO BEDTIME 09/10/21 10/05/21 Unknown History acetazolamide 250 mg tablet 250 mg PO MOFR 10/05/21 10/05/21 Unknown History crisaborole 2 % topical ointment 1 appl TOPICAL BID 10/05/21 10/05/21 Unknown History gabapentin 300 mg capsule 300 mg PO BEDTIME 10/05/21 10/05/21 Unknown History ytvvwkul-tnqvgj-BK-thonzonm 3.3 5 drp OTIC (EARS) TID 10/05/21 10/05/21 Unknown History mg-3 mg-10 mg-0.5 mg/mL ear drops,susp (Cortisporin-TC) nicotine 10 mg inhalation 1 inh INHALATION Q2H PRN 10/05/21 10/05/21 Unknown History cartridge (Nicotrol) oxymetazoline 0.05 % nasal spray 2 spray INTRANASAL QID PRN 10/05/21 10/05/21 Unknown History polyethylene glycol 3350 17 17 g PO DAILY 10/05/21 10/05/21 Unknown History gram/dose oral powder prednisone 10 mg tablet 10 mg PO Q48H 10/05/21 10/05/21 Unknown History Physical Exam Vital Signs and Narrative: Vital Signs: Last Vital Signs Temp 98.3 F 10/05/21 08:33 Pulse 96 10/05/21 15:45 Resp 17 10/05/21 15:45 BP 134/52 L 10/05/21 08:33 Pulse Ox 92 10/05/21 08:33 Oxygen Flow Rate 4 10/05/21 06:07 Body Mass Index 27.4 Gen: in no acute distress HEENT: sclera anicteric, moist mucus membranes Neck: supple Lungs: diminished with end-expiratory wheezes throughout Heart: regular rate and rhythm, no murmurs Abd: soft, non-tender, non-distended Ext: no edema Skin: warm/well-perfused Neuro: alert and oriented x3, no focal findings Psych: appropriate affect Results Labs CBC and Chem 7: 10/05/21 06:23 10/05/21 06:23 Labs: Laboratory Results - last 24 hr 10/05/21 10/05/21 10/05/21 06:23 06:23 06:23 MCV 100.2 H MCH 29.7 MCHC 29.6 L RDW 13.9 Plt Count 399 MPV 9.3 L Immature Gran % (Auto) 0.3 Neut % (Auto) 72.6 Lymph % (Auto) 11.7 L [place] % (Auto) 11.2 H Eos % (Auto) 3.7 Baso % (Auto) 0.5 Lymph # (Auto) 0.7 L [place] # (Auto) 0.7 Eos # (Auto) 0.2 Baso # (Auto) 0.0 Abs Immat Gran (auto) 0.02 Absolute Neuts (auto) 4.4 Absolute Nucleated RBC 0.000 Nucleated RBC % (auto) 0.0 O2 Saturation ABG pH at Pt Temp ABG pH (Temp Correct) ABG pCO2 at Pt Temp ABG pCO2 (Temp Corrct ABG pO2 at Pt Temp ABG pO2 (Temp Correct ABG HCO3 ABG Base Excess (Actual) Anion Gap 10 L Estim Creat Clear Calc 68.2 Estimated GFR > 60 Fasting Glucose 105 H Calcium 8.6 D Total Bilirubin 0.2 AST 22 ALT 16 Alkaline Phosphatase 74 Troponin I High Sens B-Natriuretic Peptide Total Protein 6.8 Albumin 4.2 Procalcitonin 0.03 COVID-19 (EDU) COVID-19 Clin Com 10/05/21 10/05/21 10/05/21 07:50 08:57 13:18 MCV MCH MCHC RDW Plt Count MPV Immature Gran % (Auto) Neut % (Auto) Lymph % (Auto) [place] % (Auto) Eos % (Auto) Baso % (Auto) Lymph # (Auto) [place] # (Auto) Eos # (Auto) Baso # (Auto) Abs Immat Gran (auto) Absolute Neuts (auto) Absolute Nucleated RBC Nucleated RBC % (auto) O2 Saturation 97.0 ABG pH at Pt Temp 7.29 L ABG pH (Temp Correct) 7.29 L ABG pCO2 at Pt Temp 104 H* ABG pCO2 (Temp Corrct 103 H* ABG pO2 at Pt Temp 94 ABG pO2 (Temp Correct 93 ABG HCO3 50 H ABG Base Excess (Actual) 18.7 Anion Gap Estim Creat Clear Calc Estimated GFR Fasting Glucose Calcium Total Bilirubin AST ALT Alkaline Phosphatase Troponin I High Sens 4.6 B-Natriuretic Peptide 28 Total Protein Albumin Procalcitonin COVID-19 (EDU) Negative COVID-19 Clin Com See Note Imaging Radiologist's Impressions: Impressions Cervical Spine CT 10/05/21 07:17 IMPRESSION: 1. No acute intracranial pathology. 2. No fractures or dislocations of the cervical spine. This CT examination was performed using dose optimization techniques as appropriate, variously including the following: *Automated exposure control *Adjustment of mA and/or kV according to patient size (this includes techniques or standardized protocols for targeted exams where dose is matched to indication/reason for exam; i.e. extremities or head) *Use of iterative reconstruction technique Chest X-Ray 10/05/21 07:17 IMPRESSION: Stable chronic changes of the chest. No acute pulmonary pathology identified. Head CT 10/05/21 07:17 IMPRESSION: 1. No acute intracranial pathology. 2. No fractures or dislocations of the cervical spine. This CT examination was performed using dose optimization techniques as appropriate, variously including the following: *Automated exposure control *Adjustment of mA and/or kV according to patient size (this includes techniques or standardized protocols for targeted exams where dose is matched to indication/reason for exam; i.e. extremities or head) *Use of iterative reconstruction technique Assessment and Plan (1) Acute on chronic respiratory failure with hypoxia and hypercapnia: Status: Acute (2) COPD exacerbation: Status: Acute 66yo F with COPD with chronic hypoxic + hypercarbic respiratory failure on 3-4L of O2 and Trilogy ventilator, presenting after syncopal episode and found to have [id number] hypercapnea. # acute/chronic hypercapneic/hypoxic respiratory failure - admit to [facility], BiPAP at night and for naps [or Trilogy if can be brought in from home], supplemental O2 with goal SaO2 88-92% and no greater, continue acetazolamide # COPD exacerbation - IV steroids, continue ICS + LABA/LAMA + theophylline + montelukast, prn nebs, Pulmonology consultation # syncope - likely due to hypercarbia but will monitor on telemetry and obtain TTE # bipolar disorder - lamotrigine, vilazodone, mirtazapine, aripiprazole # tobacco abuse - uses Nicotrol at home, declines any NRT while admitted # VTE ppx - LMWH # code - FULL Quality Stroke Does the patient have a stroke diagnosis?: No VTE Prior VTE?: No VTE Risk Level:: Medical - moderate - high VTE Device Contraindication: N/A - Device Ordered VTE Drug Contraindication: N/A - Med Ordered
[2021-10-05 16:49] LABS: ABG Refer to POC result
[2021-10-05 16:54] LABS: ABG Base Excess 15.6 mmol/L; ABG HCO3 45 mmol/L (22-26); ABG pCO2 80 mmHg (32-45); ABG pCO2 TC 79 mmHg (32-45); ABG pH 7.35 (7.35-7.45); ABG pH TC 7.35 (7.35-7.45); ABG pO2 58 mmHg (83-108); ABG pO2 TC 57 (83-108)
[2021-10-05] MEDS: methylPREDNISolone Sod Succ 125 MG/2 ML VIAL 60 MG IVPUSH (17:35)
[2021-10-05] MEDS: Enoxaparin Sodium 40 MG/0.4 ML SYRINGE SUBCUT (17:35)
[2021-10-05 20:59] LABS: Adenovirus PCR Not Detected (Not Detect.); Bordetella parapertussis PCR Not Detected (Not Detect.); Bordetella pertussis PCR Not Detected (Not Detect.); Chlamydia pneumoniae PCR Not Detected (Not Detect.); Coronavirus 229E PCR Not Detected (Not Detect.); Coronavirus HKU1 PCR Not Detected (Not Detect.); Coronavirus NL63 PCR Not Detected (Not Detect.); Coronavirus OC43 PCR Not Detected (Not Detect.); Human metapneumovirus PCR Not Detected (Not Detect.); Influenza A PCR Not Detected (Not Detect.); Influenza B PCR Not Detected (Not Detect.); Mycoplasma pneumoniae PCR Not Detected (Not Detect.); Parainfluenza 1 PCR Not Detected (Not Detect.); Parainfluenza 2 PCR Not Detected (Not Detect.); Parainfluenza 3 PCR Not Detected (Not Detect.); Parainfluenza 4 PCR Not Detected (Not Detect.); RSV PCR Not Detected (Not Detect.); Rhino/Enterovirus PCR Not Detected (Not Detect.); SARS-CoV-2 PCR Not Detected (Not Detect.)
[2021-10-05 21:04] LABS: Appearance Urine CLEAR; Color Urine YELLOW; Glucose Urine UA NEG (NEG); Leukocyte Esterase Urine NEG (NEG); Nitrite Urine NEG (NEG); Specific Gravity - Urine 1.025 (1.005-1.025); UACC Culture Trigger NO; Urine Blood 1+ (NEG); Urine Ketones 15 MG/DL (NEG); Urine Protein 2+ MG/DL (NEG-TRACE)
[2021-10-05] MEDS: Montelukast Sodium 10 MG TABLET PO (21:07)
[2021-10-05] MEDS: Mirtazapine 15 MG TABLET PO (21:07)
[2021-10-05] MEDS: Magnesium Oxide 400 MG TABLET PO (21:07)
[2021-10-05] MEDS: Sennosides 8.6 MG TABLET PO (21:08)
[2021-10-05] MEDS: Gabapentin 300 MG CAPSULE PO (21:08)
[2021-10-05] MEDS: lamoTRIgine 100 MG TABLET 300 MG PO (21:08)
[2021-10-05] MEDS: NeoMYCIN/Polymyxin/HC Otic Sus 10 ML DRPBTL 4 DROP EAR-BOTH (21:12)
[2021-10-05 21:20] LABS: Squamous Epithelial Cell Urine TRACE /LPF; WBC Urine 0-2 /HPF (0-4)
[2021-10-05 21:21] LABS: Mucus Urine TRACE /LPF
--- NOTE | 2021-10-05 21:25 | PC.NURSE ---
Patient medicated with evening medication per emar. Patient appears to be doing well. oxygen saturation 91% on 4 litres. Urine sent.
[2021-10-05] MEDS: Theophylline Anhydrous ER 300 MG TAB.ER.12H PO (22:07)
[2021-10-06] VITALS (16 sets, daily range): BP systolic 116–147; BP diastolic 60–73; PULSE 66–110; RESP 16–26; TEMP 35.9–37.1; O2SAT 88–100
[2021-10-06] MEDS: methylPREDNISolone Sod Succ 125 MG/2 ML VIAL 60 MG IVPUSH ×3 (00:24→19:55)
[2021-10-06] MEDS: 0.9 % Sodium Chloride Flush 3 ML SYRINGE IVFLUSH ×4 (00:24→20:01)
[2021-10-06 07:14] LABS: Hemoglobin 11.8 g/dl (12.0-16.0); Mean Corpuscular HGB Conc 30.3 g/dl (31.0-35.0); Mean Corpuscular Hemoglobin 29.9 pg (27.0-33.0); Mean Corpuscular Volume 98.7 fL (80.0-98.0); Mean Platelet Volume 9.4 fL (9.4-12.3); Platelet Count 395 X10*3/uL (160-400); Red Blood Count 3.95 X10*6/uL (4.20-5.50); Red Cell Distribution Width 13.7 % (11.0-16.0); White Blood Count 5.9 X10*3/uL (4.8-10.8)
[2021-10-06 07:19] LABS: VBG Base Excess 18.4 mmol/L; VBG HCO3 49 mmol/L (22-26); VBG pCO2 97 mmHg; VBG pH 7.31 (7.32-7.43); VBG pO2 57 mmHg
[2021-10-06 07:22] LABS: Venous Blood Gas Refer to POC result
--- NOTE | 2021-10-06 07:30 | CA_ITS ---
Transthoracic Echocardiogram Patient (Last, First, Middle): Lluvia Cartagena Ann Gender: Female Date of : 1955 Age: 66 Procedure Date: 10/06/2021 Procedure Type: Transthoracic E[place]ocardiogram [place] [facility] [place]: 165.1 cm Weight: 74.39 kg BSA: 1.82 m2 Heart Rate: bpm BP: 138 / 73 mmHg Professor Of Floriculture: Referring MD: Puja Goldsmith MD Symptoms: syncopea Study Quality: Good ECG Rhythm: Sinus Conclusions: - The left ventricular systolic function is hyperdynamic. The visually estimated ejection fraction is >70%. - There is mild mitral annular calcification. - No obvious valvular pathology seen on this study. Findings Left Ventricle Normal left ventricular cavity size. There is normal left ventricular wall thickness. The left ventricular systolic function is hyperdynamic. The visually estimated ejection fraction is >70%. There is no evidence of regional wall motion abnormalities. Diastolic function is normal for age. Right Ventricle Normal right ventricular cavity size and systolic function. Atria Both atria are normal in size. Aortic Valve There is a normal trileaflet aortic valve. There is no aortic valve stenosis. There is no aortic valve regurgitation. Mitral Valve There is mild mitral annular calcification. There is trace mitral valve regurgitation. There is no mitral valve stenosis. Pulmonic Valve The pulmonic valve was not well visualized. Tricuspid Valve Normal tricuspid valve structure. There is trace tricuspid valve regurgitation. The pulmonary artery systolic pressure is normal. Great Vessels The aortic annulus, sinuses of valsalva, and asc aorta are normal in size. Venous The inferior vena cava is normal in size and collapses greater than 50% with inspiration. Pericardium/Pleural There is no evidence of pericardial effusion. Prior Study Comparison Changes noted compared to prior study dated: 04/21/2017. RV size in normal range. Recommendations, Care & Conclusions No obvious valvular pathology seen on this study. Measurements 2D Linear Measurements IVSd: 1.09 0.6-0.9/0.6-1.0 cm LVIDd: 4.33 3.9-5.3/4.2-5.9 cm LVIDd Index: 2.38 2.4-3.2/2.2-3.1 cm/m2 LVIDs: 2.44 2.0-3.6 cm LVPWd: 1.06 0.7-1.1 cm Ao Root: 2.70 2.1-3.5 cm LA Diam: 4.20 2.7-3.8/3.0-4.0 cm LAIDs Index: 2.31 1.5-2.3 cm/m2 LV Mass: 198.55 67-162/88-224 g LV Mass Index: 109.09 43-95/49-115 g/m2 LVOT Diam: 2.10 3.0+(-)1.3 cm Mitral Valve MV Pk E: 1.08 MV PK A: 1.32 MV Decel Time: 128.00 E/A: 0.80 E'Lateral: 9.14 E'Medial: 8.05 E/E' Med: 13.40 E/E' Lat: 11.80 PHT: 37.00 MVA PHT: 5.95 Decel Starke: 8.42 Aortic Valve AoV Pk Jeb: 2.35 AoV Mn Jeb: 1.45 AoV VTI: 0.41 AoV Pk Grad: 22.00 Aov Mn Grad: 10.00 EKATERINA Cont.VTI: 2.21 LVOT LVOT Pk Jeb: 1.29 LVOT Mn Jeb: 0.96 LVOT VTI: 0.26 LVOT Pk Grad: 7.00 LVOT Mn Grad: 4.00 LVOT Diam: 2.10 LVOT Area: 3.46 Diastolic Function MV Pk E: 1.08 MV Pk A: 1.32 E/A: 0.80 E'Medial: 8.05 E/E' Med: 13.40 E' Laterial: 9.14 E/E' Lat: 11.80 Right Ventricle TAPSE (mm): 30.00 TVS' Jeb: 19.00 Tricuspid Valve TR Pk Jeb: 2.34 TR Pk Grad: 22.00 Great Vessels Aorta Ao Root-2D: 2.70 2.0-3.7 cm Ao Asc: 3.10 2.1-3.4 cm Pulmonary Valve PV Pk Jeb: 1.32 Peak PV Grad: 7.00 Updated in Other Vendor System with Status of Final Roberto Desir MD electronically signed on 10/06/2021 4:53:29 PM with status of Final
[2021-10-06 07:52] LABS: Anion Gap 9 (12-20); Blood Urea Nitrogen 10 mg/dL (9-16); Calcium 8.8 mg/dL (8.4-10.2); Carbon Dioxide 42 mmol/L (22-29); Chloride 95 mmol/L (96-108); Creatinine Clr Calc Pharmacy 82.5; Estimated Glomerular Filt Rate > 60; Glucose Random 129 mg/dL (60-115); Potassium 5.3 mmol/L (3.3-5.1); Sodium 141 mmol/L (135-145)
--- NOTE | 2021-10-06 08:09 | PC.NURSE ---
SPOKE WITH RT THIS MORNING ABOUT DOING A TRIAL ON O2 PT ON 3 L NO DISTRESS AND CO2 IS 42, RT BROUGHT BIPAP TO RM [phone] IF PT NEEDS TO GO BACK ON.
[2021-10-06] MEDS: Multivitamin TABLET 1 TAB PO (08:16)
[2021-10-06] MEDS: Magnesium Oxide 400 MG TABLET PO ×2 (08:16→19:56)
[2021-10-06] MEDS: Cholecalciferol (Vitamin D3) 25 MCG TABLET 50 MCG PO (08:17)
[2021-10-06] MEDS: NeoMYCIN/Polymyxin/HC Otic Sus 10 ML DRPBTL 4 DROP EAR-BOTH ×2 (08:17→19:56)
[2021-10-06] MEDS: lamoTRIgine 100 MG TABLET 200 MG PO (08:17)
[2021-10-06] MEDS: Aspirin Enteric Coated 81 MG TABLET.DR PO (08:17)
[2021-10-06] MEDS: polyethylene glycoL 3350 17 GM POWD.PACK PO (08:18)
[2021-10-06] MEDS: ARIPiprazole 10 MG TABLET PO (09:34)
[2021-10-06] MEDS: Theophylline Anhydrous ER 300 MG TAB.ER.12H PO ×2 (09:35→19:56)
[2021-10-06] MEDS: Sodium Zirconium Cyclosilicate 10 GM POWD.PACK PO (09:35)
[2021-10-06] MEDS: Vilazodone HCL 20 MG TABLET PO (09:46)
[2021-10-06] MEDS: Albuterol/Iprat 2.5/0.5MG 3 ML AMPUL.NEB INHALE ×3 (11:03→20:25)
--- NOTE | 2021-10-06 13:09 | MHC.CM.PN ---
met with pt who has servceis thru [facility] [employer] [facility] she lives alone she has home 02..pt explins mthat she has home care thru [place] and in home therapy vists [facility] will transport her home when dcd
--- NOTE | 2021-10-06 14:14 | HO.PM.IMPN ---
Subjective Subjective Date of Service: 10/06/21 Interval History: breathing improved no further dizziness/lightheadedness no events on telemetry no fever Review of Systems Review of Systems: Yes all other systems are reviewed and are negative Physical Exam Vital Signs: Vital Signs: Last Vital Signs Temp 98.5 F 10/06/21 11:56 Pulse 110 H 10/06/21 11:56 Resp 20 10/06/21 11:56 BP 125/60 10/06/21 11:56 Pulse Ox 90 L 10/06/21 11:56 Oxygen Flow Rate 4 10/05/21 06:07 Body Mass Index 27.4 Gen: in no acute distress HEENT: sclera anicteric, moist mucus membranes Neck: supple Lungs: diminished throughout Heart: regular rate and rhythm, no murmurs Abd: soft, non-tender, non-distended Ext: no edema Skin: warm/well-perfused Neuro: alert and oriented x3, no focal findings Psych: appropriate affect Objective Data Active Medications Acetaminophen (Acetaminophen 325 Mg Tablet) 650 mg PO TID PRN PRN Reason: Headache Acetazolamide (Acetazolamide 250 Mg Tablet) 250 mg PO MoFr@0900 [facility] Albuterol Sulfate (Albuterol Sulfate (0.083%) 2.5 Mg/3 Ml Vial.Neb) 2.5 mg INHALE Q2H PRN PRN Reason: shortness of breath/wheeze Albuterol/Ipratropium (Albuterol/Iprat 2.5/0.5mg 3 Ml Ampul.Neb) 3 ml INHALE RQ4H WHILE AWAKE [facility] Last Admin: 10/06/21 11:03 Dose: 3 ml Documented by: RYDER Alendronate Sodium (Alendronate Sodium 70 Mg Tablet) 70 mg PO Mo@0600 [facility] Aripiprazole (Aripiprazole 10 Mg Tablet) 10 mg PO DAILY [facility] Last Admin: 10/06/21 09:34 Dose: 10 mg Documented by: ROSALIA Aspirin (Aspirin Enteric Coated 81 Mg Tablet.) 81 mg PO DAILY [facility] Last Admin: 10/06/21 08:17 Dose: 81 mg Documented by: ZEUS Enoxaparin Sodium (Enoxaparin Sodium 40 Mg/0.4 Ml Syringe) 40 mg SUBCUT Q24H [facility] Last Admin: 10/05/21 17:35 Dose: 40 mg Documented by: SAILAJA Fluticasone/Vilanterol (Fluticasone/Vilanterol 200/25 Blst.W.Dev) 1 puff INHALE DAILY [facility] Last Admin: 10/06/21 08:06 Dose: Not Given Documented by: MARCELLUS Non-Admin Reason: Not In Room Gabapentin (Gabapentin 300 Mg Capsule) 300 mg PO BEDTIME [facility] Last Admin: 10/05/21 21:08 Dose: 300 mg Documented by: LEVY Ipratropium [place] (Ipratropium [place] Regan 0.06 % 15 Ml [place]) 2 spray NOSTRIL-B TID [facility] Last Admin: 10/06/21 12:57 Dose: Not Given Documented by: ROSALIA Non-Admin Reason: not in pt bin Lamotrigine (Lamotrigine 100 Mg Tablet) 300 mg PO BEDTIME [facility] Last Admin: 10/05/21 21:08 Dose: 300 mg Documented by: LEVY Lamotrigine (Lamotrigine 100 Mg Tablet) 200 mg PO DAILY [facility] Last Admin: 10/06/21 08:17 Dose: 200 mg Documented by: ZEUS Magnesium Oxide (Magnesium Oxide 400 Mg Tablet) 400 mg PO BID [facility] Last Admin: 10/06/21 08:16 Dose: 400 mg Documented by: ZEUS Melatonin (Melatonin 3 Mg Tablet) 6 mg PO BEDTIME PRN PRN Reason: sleep Methylprednisolone Sodium Succinate (Methylprednisolone Sod Succ 125 Mg/2 Ml Vial) 60 mg IVPUSH Q12H [facility] Last Admin: 10/06/21 08:17 Dose: 60 mg Documented by: ZEUS Mirtazapine (Mirtazapine 15 Mg Tablet) 15 mg PO BEDTIME [facility] Last Admin: 10/05/21 21:07 Dose: 15 mg Documented by: LEVY Montelukast Sodium (Montelukast Sodium 10 Mg Tablet) 10 mg PO BEDTIME [facility] Last Admin: 10/05/21 21:07 Dose: 10 mg Documented by: LEVY Multivitamins/Vitamin C (Multivitamin Tablet) 1 tab PO DAILY [facility] Last Admin: 10/06/21 08:16 Dose: 1 tab Documented by: ZEUS Neomycin/Polymyxin/Hydrocortisone (Neomycin/Polymyxin/Hc Otic [place] 10 Ml Drpbtl) 4 drop EAR-BOTH TID [facility] Last Admin: 10/06/21 08:17 Dose: 4 drop Documented by: ZEUS Ondansetron HCl (Ondansetron Odt 4 Mg Tab.Rapdis) 4 mg TRANSLINGU Q8H PRN PRN Reason: Nausea Ondansetron HCl (Ondansetron Hcl 4 Mg/2 Ml Vial) 4 mg IVPUSH Q8H PRN PRN Reason: Nausea and Vomiting Oxymetazoline HCl (Oxymetazoline Hcl 0.05 % Nasal 15 Ml [place]) 2 spray NOSTRIL-B QID PRN PRN Reason: Nasal Congestion Pharmacy Consult (Consult Rx Perform Med Rec) 1 each MISCELLANE ONCE PRN PRN Reason: Consult order Polyethylene Glycol (Polyethylene Glycol 3350 17 Gm Powd.Pack) 17 gm PO DAILY [facility] Last Admin: 10/06/21 08:18 Dose: 17 gm Documented by: ZEUS Senna (Sennosides 8.6 Mg Tablet) 8.6 mg PO BEDTIME [facility] Last Admin: 10/05/21 21:08 Dose: 8.6 mg Documented by: LEVY Sodium Chloride (0.9 % Sodium Chloride Flush 3 Ml Syringe) 3 ml IVFLUSH QSHIFT [facility] Last Admin: 10/06/21 09:34 Dose: 3 ml Documented by: ROSALIA Theophylline (Theophylline Anhydrous Er 300 Mg Tab.Er.12h) 300 mg PO BID [facility] Last Admin: 10/06/21 09:35 Dose: 300 mg Documented by: ROSALIA Tiotropium [place] (Tiotropium [place] 18 Mcg Cap.W.Dev) 1 puff INHALE RDAILY [facility] Last Admin: 10/06/21 08:06 Dose: Not Given Documented by: MARCELLUS Non-Admin Reason: Not In Room Vilazodone HCl (Vilazodone Hcl 20 Mg Tablet) 20 mg PO DAILY [facility] Last Admin: 10/06/21 09:46 Dose: 20 mg Documented by: ROSALIA Vitamin D (Cholecalciferol (Vitamin D3) 25 Mcg Tablet) 50 mcg PO DAILY [facility] Last Admin: 10/06/21 08:17 Dose: 50 mcg Documented by: ZEUS Labs CBC & Chem 7: 10/06/21 07:02 10/06/21 06:59 Labs: Laboratory Results - last 24 hr 10/05/21 10/05/21 10/05/21 06:23 16:44 20:53 MCV MCH MCHC RDW Plt Count MPV Absolute Nucleated RBC Nucleated RBC % (auto) O2 Saturation 87.0 ABG pH at Pt Temp 7.35 ABG pH (Temp Correct) 7.35 ABG pCO2 at Pt Temp 80 H* ABG pCO2 (Temp Corrct 79 H* ABG pO2 at Pt Temp 58 L ABG pO2 (Temp Correct 57 L ABG HCO3 45 H ABG Base Excess (Actual) 15.6 VBG pH VBG pCO2 VBG pO2 VBG HCO3 VBG O2 Saturation VBG Base Excess Anion Gap Estim Creat Clear Calc Estimated GFR Random Glucose Calcium Procalcitonin 0.03 Urine Color Urine Appearance Urine pH Ur Specific [place] Urine Protein Urine Glucose (UA) Urine Ketones Urine Blood Urine Nitrite Ur Leukocyte Esterase Urine RBC Urine WBC Ur Squamous Epith Cells Urine Bacteria Urine Mucus Respiratory Panel [place] See Note Adenovirus (Rapid PCR) Not Detected B.pert (TEM-PCR) Not Detected B.parapertussis DNA PCR Not Detected C. pneumoniae DNA (PCR) Not Detected Coronavirus OC43 (PCR) Not Detected Coronavirus HKU1 (PCR) Not Detected Coronavirus 229E (PCR) Not Detected Coronavirus NL63 (PCR) Not Detected Human Metapneumovir PCR Not Detected Influenza A (RT-PCR) Not Detected Influenza B (RT-PCR) Not Detected M. pneumoniae (PCR) Not Detected Parainfluenza 1 (PCR) Not Detected Parainfluenza 2 (PCR) Not Detected Parainfluenza 3 (PCR) Not Detected Parainfluenza 4 (PCR) Not Detected RSV (PCR) Not Detected Entero/Rhino (PCR) Not Detected SARS-CoV-2 RNA (RT-PCR) Not Detected 10/05/21 10/06/21 10/06/21 20:53 06:59 07:02 MCV 98.7 H MCH 29.9 MCHC 30.3 L RDW 13.7 Plt Count 395 MPV 9.4 Absolute Nucleated RBC 0.000 Nucleated RBC % (auto) 0.0 O2 Saturation ABG pH at Pt Temp ABG pH (Temp Correct) ABG pCO2 at Pt Temp ABG pCO2 (Temp Corrct ABG pO2 at Pt Temp ABG pO2 (Temp Correct ABG HCO3 ABG Base Excess (Actual) VBG pH VBG pCO2 VBG pO2 VBG HCO3 VBG O2 Saturation VBG Base Excess Anion Gap 9 L Estim Creat Clear Calc 82.5 Estimated GFR > 60 Random Glucose 129 H Calcium 8.8 Procalcitonin Urine Color YELLOW Urine Appearance CLEAR Urine pH 6.0 Ur Specific [place] 1.025 Urine Protein 2+ H Urine Glucose (UA) NEG Urine Ketones 15 Urine Blood 1+ H Urine Nitrite NEG Ur Leukocyte Esterase NEG Urine RBC 15-29 H Urine WBC 0-2 Ur Squamous Epith Cells TRACE Urine Bacteria NONE Urine Mucus TRACE Respiratory Panel [place] Adenovirus (Rapid PCR) B.pert (TEM-PCR) B.parapertussis DNA PCR C. pneumoniae DNA (PCR) Coronavirus OC43 (PCR) Coronavirus HKU1 (PCR) Coronavirus 229E (PCR) Coronavirus NL63 (PCR) Human Metapneumovir PCR Influenza A (RT-PCR) Influenza B (RT-PCR) M. pneumoniae (PCR) Parainfluenza 1 (PCR) Parainfluenza 2 (PCR) Parainfluenza 3 (PCR) Parainfluenza 4 (PCR) RSV (PCR) Entero/Rhino (PCR) SARS-CoV-2 RNA (RT-PCR) 10/06/21 07:12 MCV MCH MCHC RDW Plt Count MPV Absolute Nucleated RBC Nucleated RBC % (auto) O2 Saturation ABG pH at Pt Temp ABG pH (Temp Correct) ABG pCO2 at Pt Temp ABG pCO2 (Temp Corrct ABG pO2 at Pt Temp ABG pO2 (Temp Correct ABG HCO3 ABG Base Excess (Actual) VBG pH 7.31 L VBG pCO2 97 VBG pO2 57 VBG HCO3 49 H VBG O2 Saturation 84.0 VBG Base Excess 18.4 Anion Gap Estim Creat Clear Calc Estimated GFR Random Glucose Calcium Procalcitonin Urine Color Urine Appearance Urine pH Ur Specific [place] Urine Protein Urine Glucose (UA) Urine Ketones Urine Blood Urine Nitrite Ur Leukocyte Esterase Urine RBC Urine WBC Ur Squamous Epith Cells Urine Bacteria Urine Mucus Respiratory Panel [place] Adenovirus (Rapid PCR) B.pert (TEM-PCR) B.parapertussis DNA PCR C. pneumoniae DNA (PCR) Coronavirus OC43 (PCR) Coronavirus HKU1 (PCR) Coronavirus 229E (PCR) Coronavirus NL63 (PCR) Human Metapneumovir PCR Influenza A (RT-PCR) Influenza B (RT-PCR) M. pneumoniae (PCR) Parainfluenza 1 (PCR) Parainfluenza 2 (PCR) Parainfluenza 3 (PCR) Parainfluenza 4 (PCR) RSV (PCR) Entero/Rhino (PCR) SARS-CoV-2 RNA (RT-PCR) Assessment and Plan (1) Acute on chronic respiratory failure with hypoxia and hypercapnia: Status: Acute (2) COPD exacerbation: Status: Acute Assessment and Plan: ?hospital d#2 66yo F with COPD with chronic hypoxic + hypercarbic respiratory failure on 3-4L of O2 and Trilogy ventilator, presenting after syncopal episode and found to have [id number] hypercapnea. # acute/chronic hypercapneic/hypoxic respiratory failure - continue BiPAP at night and for naps [or Trilogy if can be brought in from home] - supplemental O2 with goal SaO2 88-92% and no greater - continue acetazolamide - Pulmonology consultation # COPD exacerbation - IV steroids, continue ICS + LABA/LAMA + theophylline + montelukast, prn nebs # syncope - likely due to hypercarbia but continue telemetry and check TTE # bipolar disorder - lamotrigine, vilazodone, mirtazapine, aripiprazole # tobacco abuse - uses Nicotrol at home, declines any NRT while admitted # VTE ppx - LMWH Quality Stroke Does the patient have a stroke diagnosis?: No VTE Prior VTE?: No VTE Risk Level:: Medical - moderate - high VTE Device Contraindication: N/A - Device Ordered VTE Drug Contraindication: N/A - Med Ordered
[2021-10-06] MEDS: Enoxaparin Sodium 40 MG/0.4 ML SYRINGE SUBCUT (16:11)
--- NOTE | 2021-10-06 18:31 | P.CONPL_ITS ---
History of Present Illness History of Present Illness Consult date: 10/06/21 Chief complaint: Hypercapnea COPD Narrative: This is a new patient pulmonary evaluation. 66yo F with COPD with ch ronic hypoxic + hypercarbic respiratory failure on 3-4L of O2 and Trilogy ventilator, prior intubation, fully vaccinated against COVID-19, presenting after suddenly losing consciousness and falling in context of generalized malaise.? Chronic dyspnea, no worse than usual.?In the ED, ABG, showed pCO2 of 104 with pH 7.29, only partially compensated with serum bicarbonate of 41.? She was started on BiPAP.? CT of the head and C-spine were negative for acute injury.? COVID-19 EDU was negative. CXR showed chronic coarse interstitial markings.? WBC count was normal. The patient had a repeat ABG demonstrating still some residual acidosis. She was switched over to AVAPS noninvasive ventilator and also an end-tidal CO2 monitor was placed. The patient did very well. Her end-tidal CO2 measurements have been in the 50s. This is much better than her usual. The patient is requesting to go home. Will continue to monitor her closely while she is on the noninvasive ventilator. In the meantime her bicarbonate was very high. Will increase her Diamox at this time with hopes of being able to maintain proper acid-base status while on the noninvasive ventilator. Patient is also on steroids for COPD exacerbation likely precipitated this failure. Review of Systems Constitutional: Constitutional: Reports frequent falls, Reports malaise and Denies night sweats ENT: Denies change in voice, Denies lip swelling, Denies mouth pain, Reports nasal congestion, Reports nasal discharge and Denies tongue swelling Cardiovascular: Cardiovascular: Denies chest pain, Reports dyspnea and Reports dyspnea on exertion Respiratory: Respiratory: Reports cough, Reports dyspnea and Reports dyspnea on exertion Gastrointestinal: Gastrointestinal: Denies abdominal pain Musculoskeletal: Musculoskeletal: Denies no additional musculoskeletal complaints Neurologic: Denies Neuro-related abnormal movements and Reports frequent falls Psychiatric: Psychiatric: Denies no additional psychiatric complaints Allergic/Immunologic: Allergic/Immunologic: Denies lip swelling and Denies tongue swelling PMF Past Medical History Medical History Acute and chronic respiratory failure with hypercapnia Acute metabolic encephalopathy Bipolar depression Bronchitis Chronic respiratory failure COPD (chronic obstructive pulmonary disease) COPD with exacerbation Eczema Fall Insomnia Limb swelling Vasomotor rhinitis Family History Family History Other Hypertension Social History Social History Household Members: None Housing: Apartment Housing Other:: associated with Amanda [employer] Do you presently have visiting nurse or other home services: Yes (home health aid) Alcohol intake: unknown Patient Tobacco Use Status: Former Tobacco user Quit Date: 2018 Tobacco use type: Cigarette Years Smoked: 20+ years e-Cigarette/Vaping Use: Never Used Second Hand Smoke Exposure: No Advance Directives Date on File: 02/13/21 service: No Meds Allergies Allergy/AdvReac Type Severity Reaction Status Date / Time codeine [Codeine] Allergy Intermediate RESTLESS/RA Verified 10/05/21 06:14 SH Sulfa (Sulfonamide Allergy Intermediate HIVES Verified 10/05/21 06:14 Antibiotics) haloperidol [Haldol] Allergy Unknown Palpitation Verified 10/05/21 06:14 s Active Medications: Current Medications Acetaminophen (Acetaminophen 325 Mg Tablet) 650 mg PO TID PRN PRN Reason: Headache Acetazolamide (Acetazolamide 250 Mg Tablet) 250 mg PO DAILY [facility] Albuterol Sulfate (Albuterol Sulfate (0.083%) 2.5 Mg/3 Ml Vial.Neb) 2.5 mg INHALE Q2H PRN PRN Reason: shortness of breath/wheeze Albuterol/Ipratropium (Albuterol/Iprat 2.5/0.5mg 3 Ml Ampul.Neb) 3 ml INHALE RQ4H WHILE AWAKE [facility] Last Admin: 10/06/21 16:01 Dose: 3 ml Documented by: Alendronate Sodium (Alendronate Sodium 70 Mg Tablet) 70 mg PO Mo@0600 [facility] Aripiprazole (Aripiprazole 10 Mg Tablet) 10 mg PO DAILY [facility] Last Admin: 10/06/21 09:34 Dose: 10 mg Documented by: Aspirin (Aspirin Enteric Coated 81 Mg Tablet.) 81 mg PO DAILY [facility] Last Admin: 10/06/21 08:17 Dose: 81 mg Documented by: Enoxaparin Sodium (Enoxaparin Sodium 40 Mg/0.4 Ml Syringe) 40 mg SUBCUT Q24H [facility] Last Admin: 10/06/21 16:11 Dose: 40 mg Documented by: Fluticasone/Vilanterol (Fluticasone/Vilanterol 200/25 Blst.W.Dev) 1 puff INHALE DAILY [facility] Last Admin: 10/06/21 08:06 Dose: Not Given Documented by: Gabapentin (Gabapentin 300 Mg Capsule) 300 mg PO BEDTIME [facility] Last Admin: 10/05/21 21:08 Dose: 300 mg Documented by: Ipratropium [place] (Ipratropium [place] Regan 0.06 % 15 Ml [place]) 2 spray NOSTRIL-B TID [facility] Last Admin: 10/06/21 12:57 Dose: Not Given Documented by: Lamotrigine (Lamotrigine 100 Mg Tablet) 300 mg PO BEDTIME [facility] Last Admin: 10/05/21 21:08 Dose: 300 mg Documented by: Lamotrigine (Lamotrigine 100 Mg Tablet) 200 mg PO DAILY [facility] Last Admin: 10/06/21 08:17 Dose: 200 mg Documented by: Magnesium Oxide (Magnesium Oxide 400 Mg Tablet) 400 mg PO BID [facility] Last Admin: 10/06/21 08:16 Dose: 400 mg Documented by: Melatonin (Melatonin 3 Mg Tablet) 6 mg PO BEDTIME PRN PRN Reason: sleep Methylprednisolone Sodium Succinate (Methylprednisolone Sod Succ 125 Mg/2 Ml Vial) 60 mg IVPUSH Q12H [facility] Last Admin: 10/06/21 08:17 Dose: 60 mg Documented by: Mirtazapine (Mirtazapine 15 Mg Tablet) 15 mg PO BEDTIME [facility] Last Admin: 10/05/21 21:07 Dose: 15 mg Documented by: Montelukast Sodium (Montelukast Sodium 10 Mg Tablet) 10 mg PO BEDTIME [facility] Last Admin: 10/05/21 21:07 Dose: 10 mg Documented by: Multivitamins/Vitamin C (Multivitamin Tablet) 1 tab PO DAILY [facility] Last Admin: 10/06/21 08:16 Dose: 1 tab Documented by: Neomycin/Polymyxin/Hydrocortisone (Neomycin/Polymyxin/Hc Otic Jeanna 10 Ml Drpbtl) 4 drop EAR-BOTH TID [facility] Last Admin: 10/06/21 08:17 Dose: 4 drop Documented by: Ondansetron HCl (Ondansetron Odt 4 Mg Tab.Rapdis) 4 mg TRANSLINGU Q8H PRN PRN Reason: Nausea Ondansetron HCl (Ondansetron Hcl 4 Mg/2 Ml Vial) 4 mg IVPUSH Q8H PRN PRN Reason: Nausea and Vomiting Oxymetazoline HCl (Oxymetazoline Hcl 0.05 % Nasal 15 Ml [place]) 2 spray NOSTRIL- B QID PRN PRN Reason: Nasal Congestion Pharmacy Consult (Consult Rx Perform Med Rec) 1 each MISCELLANE ONCE PRN PRN Reason: Consult order Polyethylene Glycol (Polyethylene Glycol 3350 17 Gm Powd.Pack) 17 gm PO DAILY [facility] Last Admin: 10/06/21 08:18 Dose: 17 gm Documented by: Senna (Sennosides 8.6 Mg Tablet) 8.6 mg PO BEDTIME [facility] Last Admin: 10/05/21 21:08 Dose: 8.6 mg Documented by: Sodium Chloride (0.9 % Sodium Chloride Flush 3 Ml Syringe) 3 ml IVFLUSH QSHIFT [facility] Last Admin: 10/06/21 16:11 Dose: 3 ml Documented by: Theophylline (Theophylline Anhydrous Er 300 Mg Tab.Er.12h) 300 mg PO BID [facility] Last Admin: 10/06/21 09:35 Dose: 300 mg Documented by: Tiotropium [place] (Tiotropium [place] 18 Mcg Cap.W.Dev) 1 puff INHALE RDAILY [facility] Last Admin: 10/06/21 08:06 Dose: Not Given Documented by: Vilazodone HCl (Vilazodone Hcl 20 Mg Tablet) 20 mg PO DAILY [facility] Last Admin: 10/06/21 09:46 Dose: 20 mg Documented by: Vitamin D (Cholecalciferol (Vitamin D3) 25 Mcg Tablet) 50 mcg PO DAILY [facility] Last Admin: 10/06/21 08:17 Dose: 50 mcg Documented by: Home Medications Medication Instructions Recorded Confirmed Last Taken Type acetaminophen 500 mg tablet 1,000 mg PO TID PRN 02/09/21 10/05/21 Unknown History albuterol sulfate 90 mcg/actuation 2 puff INHALATION QID PRN 02/09/21 10/05/21 Unknown History aerosol inhaler (Proventil HFA) alendronate 70 mg tablet (Fosamax) 70 mg PO QWEEK 02/09/21 10/05/21 Unknown History aripiprazole 10 mg tablet (Abilify) 10 mg PO DAILY 02/09/21 10/05/21 Unknown History aspirin 81 mg tablet,delayed 81 mg PO DAILY 02/09/21 10/05/21 Unknown History release cholecalciferol (vitamin D3) 50 50 mcg PO DAILY 02/09/21 10/05/21 Unknown History mcg (2,000 unit) capsule (Vitamin D3) fluticasone furoate 200 1 inh INHALATION DAILY 02/09/21 10/05/21 Unknown History mcg-vilanterol 25 mcg/dose inhalation powder (Breo Ellipta) lamotrigine 150 mg tablet 300 mg PO BEDTIME 02/09/21 10/05/21 Unknown History lamotrigine 200 mg tablet 200 mg PO DAILY 02/09/21 10/05/21 Unknown History magnesium oxide 400 mg PO BID 02/09/21 10/05/21 Unknown History metoprolol succinate 50 mg capsule 50 mg PO DAILY 02/09/21 10/05/21 Unknown History sprinkle, ext. release 24 hr montelukast 10 mg tablet 10 mg PO BEDTIME 02/09/21 10/05/21 Unknown History multivitamin 1 tab PO DAILY 02/09/21 10/05/21 Unknown History selenium sulfide 1 % shampoo 10 ml TOPICAL 2XW 02/09/21 10/05/21 Unknown History tiotropium bromide 18 mcg capsule 1 cap INHALATION DAILY 02/09/21 10/05/21 Unknown History with inhalation device (Spiriva with HandiHaler) vilazodone 20 mg tablet (Viibryd) 20 mg PO DAILY 02/09/21 10/05/21 Unknown History mirtazapine 15 mg tablet 15 mg PO BEDTIME 09/10/21 10/05/21 Unknown History ondansetron HCl 4 mg tablet 4 mg PO Q8H PRN 09/10/21 10/05/21 Unknown History (Zofran) sennosides 8.6 mg tablet (Senokot) 8.6 mg PO BEDTIME 09/10/21 10/05/21 Unknown History acetazolamide 250 mg tablet 250 mg PO MOFR 10/05/21 10/05/21 Unknown History crisaborole 2 % topical ointment 1 appl TOPICAL BID 10/05/21 10/05/21 Unknown History gabapentin 300 mg capsule 300 mg PO BEDTIME 10/05/21 10/05/21 Unknown History xentnslp-qnxkpt-MW-[id number] 3.3 5 drp OTIC (EARS) TID 10/05/21 10/05/21 Unknown History mg-3 mg-10 mg-0.5 mg/mL ear drops,susp (Cortisporin-TC) nicotine 10 mg inhalation 1 inh INHALATION Q2H PRN 10/05/21 10/05/21 Unknown History cartridge (Nicotrol) oxymetazoline 0.05 % nasal spray 2 spray INTRANASAL QID PRN 10/05/21 10/05/21 Unknown History polyethylene glycol 3350 17 17 g PO DAILY 10/05/21 10/05/21 Unknown History gram/dose oral powder prednisone 10 mg tablet 10 mg PO Q48H 10/05/21 10/05/21 Unknown History Physical Exam Vital Signs: Vital Signs: Last Vital Signs Temp 98.8 F 10/06/21 15:08 Pulse 88 10/06/21 16:03 Resp 20 10/06/21 15:08 BP 132/61 10/06/21 15:08 Pulse Ox 93 10/06/21 15:08 Oxygen Flow Rate 4 10/05/21 06:07 Body Mass Index 27.4 Const: General: alert Neck: Neck: Yes normal visual inspection, Yes full ROM and Yes no lymphadenopathy Chest: Chest palpation & inspection: normal inspection of the chest Resp: Auscultation: diminished lung sounds Cardio: Rate: regular rate Rhythm: regular rhythm Heart sounds: S1 normal heart sound present and S2 normal heart sound present GI: Palpation (GI): Soft to palpation and nontender Auscultation: normal bowel sounds Skin: General skin exam: rashes and/or lesions noted Results Laboratory Findings CBC and BMP: 10/06/21 07:02 10/06/21 06:59 Abnormal lab findings: Abnormal Labs 10/05/21 10/05/21 10/05/21 06:23 06:23 07:50 RBC Hgb MCV 100.2 H MCHC 29.6 L MPV 9.3 L Lymph % (Auto) 11.7 L [place] % (Auto) 11.2 H Lymph # (Auto) 0.7 L ABG pH at Pt Temp 7.29 L ABG pH (Temp Correct) 7.29 L ABG pCO2 at Pt Temp 104 H* ABG pCO2 (Temp Corrct 103 H* ABG pO2 at Pt Temp ABG pO2 (Temp Correct ABG HCO3 50 H VBG pH VBG HCO3 Potassium Chloride Carbon Dioxide 41 H* Anion Gap 10 L Random Glucose Fasting Glucose 105 H Urine Protein Urine Blood Urine RBC 10/05/21 10/05/21 10/06/21 16:44 20:53 06:59 RBC Hgb MCV MCHC MPV Lymph % (Auto) [place] % (Auto) Lymph # (Auto) ABG pH at Pt Temp ABG pH (Temp Correct) ABG pCO2 at Pt Temp 80 H* ABG pCO2 (Temp Corrct 79 H* ABG pO2 at Pt Temp 58 L ABG pO2 (Temp Correct 57 L ABG HCO3 45 H VBG pH VBG HCO3 Potassium 5.3 H D Chloride 95 L Carbon Dioxide 42 H* Anion Gap 9 L Random Glucose 129 H Fasting Glucose Urine Protein 2+ H Urine Blood 1+ H Urine RBC 15-29 H 10/06/21 10/06/21 07:02 07:12 RBC 3.95 L Hgb 11.8 L MCV 98.7 H MCHC 30.3 L MPV Lymph % (Auto) [place] % (Auto) Lymph # (Auto) ABG pH at Pt Temp ABG pH (Temp Correct) ABG pCO2 at Pt Temp ABG pCO2 (Temp Corrct ABG pO2 at Pt Temp ABG pO2 (Temp Correct ABG HCO3 VBG pH 7.31 L VBG HCO3 49 H Potassium Chloride Carbon Dioxide Anion Gap Random Glucose Fasting Glucose Urine Protein Urine Blood Urine RBC Assessment and Plan (1) COPD exacerbation: Status: Acute (2) Acute on chronic respiratory failure with hypoxia and hypercapnia: Status: Acute Continue noninvasive ventilator 2 hours after her breakfast, 2 hours after lunch and overnight. Increase Diamox 250 mg daily follow end-tidal CO2 continue DuoNeb therapy okay to switch to p.o. prednisone will follow closely. The patient does have advance COPD and respiratory failure. At this point the patient is stable but we need to continue monitoring closely her acid-base status. Procedures Date of Service Date of Service: 10/06/21
[2021-10-06] MEDS: Ipratropium Bromide Nas 0.06 % 15 ML SPRAY 2 SPRAY NOSTRIL-B (19:55)
[2021-10-06] MEDS: Montelukast Sodium 10 MG TABLET PO (19:55)
[2021-10-06] MEDS: Gabapentin 300 MG CAPSULE PO (19:55)
[2021-10-06] MEDS: lamoTRIgine 100 MG TABLET 300 MG PO (19:55)
[2021-10-06] MEDS: Mirtazapine 15 MG TABLET PO (19:55)
[2021-10-06] MEDS: Sennosides 8.6 MG TABLET PO (19:56)
[2021-10-07 04:00] VITALS: BP 138/77; PULSE 72; RESP 18; TEMP 36.1; O2SAT 95
[2021-10-07 06:39] LABS: Venous Blood Gas Refer to POC result
[2021-10-07 06:40] LABS: VBG Base Excess 25.1 mmol/L; VBG HCO3 53 mmol/L (22-26); VBG pCO2 72 mmHg; VBG pH 7.47 (7.32-7.43); VBG pO2 36 mmHg
[2021-10-07 07:13] VITALS: BP 145/59; PULSE 77; RESP 24; TEMP 36.6; O2SAT 88
[2021-10-07 07:23] LABS: Anion Gap 7 (12-20); Blood Urea Nitrogen 13 mg/dL (9-16); Calcium 8.7 mg/dL (8.4-10.2); Carbon Dioxide 44 mmol/L (22-29); Chloride 95 mmol/L (96-108); Creatinine Clr Calc Pharmacy 75.7; Estimated Glomerular Filt Rate > 60; Glucose Random 109 mg/dL (60-115); Potassium 4.4 mmol/L (3.3-5.1); Sodium 142 mmol/L (135-145)
[2021-10-07] MEDS: 0.9 % Sodium Chloride Flush 3 ML SYRINGE IVFLUSH (08:38)
[2021-10-07] MEDS: ARIPiprazole 10 MG TABLET PO (08:39)
[2021-10-07] MEDS: Vilazodone HCL 20 MG TABLET PO (08:39)
[2021-10-07] MEDS: Cholecalciferol (Vitamin D3) 25 MCG TABLET 50 MCG PO (08:40)
[2021-10-07] MEDS: acetaZOLAMIDE 250 MG TABLET PO (08:40)
[2021-10-07] MEDS: Magnesium Oxide 400 MG TABLET PO (08:41)
[2021-10-07] MEDS: Theophylline Anhydrous ER 300 MG TAB.ER.12H PO (08:41)
[2021-10-07] MEDS: Multivitamin TABLET 1 TAB PO (08:41)
[2021-10-07] MEDS: Aspirin Enteric Coated 81 MG TABLET.DR PO (08:41)
[2021-10-07] MEDS: predniSONE 20 MG TABLET 40 MG PO (09:03)
[2021-10-07] MEDS: lamoTRIgine 100 MG TABLET 200 MG PO (09:03)
[2021-10-07] MEDS: NeoMYCIN/Polymyxin/HC Otic Sus 10 ML DRPBTL 4 DROP EAR-BOTH (09:08)
--- NOTE | 2021-10-07 09:28 | P.PNPL_ITS ---
Subjective Subjective Date of Service: 10/07/21 Interval history: The patient was seen on exam. Overall she is feeling better. She continues on the oxygen supplementation. She does desaturate if she dozes off. She understands that she needs to use her noninvasive ventilator when napping. I will call [facility] to make changes to her noninvasive ventilator settings. The patient did get her Diamox. It is important for her to continue Diamox 3 times a week Tuesday. The patient is able to go home today from a respiratory point of view. Objective Data Labs CBC & Chem 7: 10/06/21 07:02 10/07/21 06:28 Labs: Laboratory Results - last 24 hr 10/07/21 10/07/21 06:28 06:34 VBG pH 7.47 H VBG pCO2 72 VBG pO2 36 VBG HCO3 53 H VBG O2 Saturation 51.0 VBG Base Excess 25.1 Sodium 142 Potassium 4.4 Chloride 95 L Carbon Dioxide 44 H* Anion Gap 7 L BUN 13 Creatinine 0.73 Estim Creat Clear Calc 75.7 Estimated GFR > 60 Random Glucose 109 Calcium 8.7 Review of Systems Constitutional: Denies frequent falls, Denies malaise and Denies night sweats Denies change in voice, Denies lip swelling, Denies mouth pain, Reports nasal congestion, Reports nasal discharge and Denies tongue swelling Cardiovascular: Denies chest pain, Denies dyspnea and Reports dyspnea on exertion Respiratory: Reports cough, Denies dyspnea and Reports dyspnea on exertion Gastrointestinal: Denies abdominal pain Musculoskeletal: Denies no additional musculoskeletal complaints Denies Neuro-related abnormal movements and Denies frequent falls Psychiatric: Denies no additional psychiatric complaints Allergic/Immunologic: Denies lip swelling and Denies tongue swelling Physical Exam Vital Signs: Vital Signs: Last Vital Signs Temp 97.8 F 10/07/21 07:13 Pulse 77 10/07/21 07:13 Resp 24 H 10/07/21 07:13 BP 145/59 H 10/07/21 07:13 Pulse Ox 88 L 10/07/21 07:13 Oxygen Flow Rate 4 10/05/21 06:07 Body Mass Index 27.4 Const: General: alert Neck: Neck: Yes normal visual inspection, Yes full ROM and Yes no lymphadenopathy Chest: Chest palpation & inspection: normal inspection of the chest Resp: Auscultation: diminished lung sounds Cardio: Rate: regular rate Rhythm: regular rhythm Heart sounds: S1 normal heart sound present and S2 normal heart sound present GI: Palpation (GI): Soft to palpation and nontender Auscultation: normal darryl wel sounds Skin: General skin exam: rashes and/or lesions noted Procedures Date of Service Date of Service: 10/07/21 Assessment and Plan Assessment and plan (1) COPD exacerbation: Status: Acute (2) Acute on chronic respiratory failure with hypoxia and hypercapnia: Status: Acute (3) COPD (chronic obstructive pulmonary disease): Status: Acute Assessment and Plan: Continue AVAPS, will make changes throuh [facility] Continue NC 4 L to keep a andpox 90-95% Prednisone taper Diamox 3 times a week F/U with Pulmonary 1-2 weeks Time Spent With Patient Time: Total time spent is greater than 50% in coordination of care (as documented) at patient's floor/unit and/or counseling patient: Time with patient: 15 - 24 minutes Progress Note: Quality Stroke Does the patient have a stroke diagnosis?: No
[2021-10-07 10:28] LABS: VBG Base Excess 14.8 mmol/L; VBG HCO3 41 mmol/L (22-26); VBG pCO2 59 mmHg; VBG pH 7.45 (7.32-7.43); VBG pO2 55 mmHg
[2021-10-07 10:29] LABS: Venous Blood Gas Refer to POC result
[2021-10-07] MEDS: Albuterol/Iprat 2.5/0.5MG 3 ML AMPUL.NEB INHALE (11:11)
--- NOTE | 2021-10-07 11:30 | MHC.CM.PN ---
per rounds md states pt will be dcd today..pt is [facility] with [facility] was contacted and will send transport for pt at 2:00 per md request
[2021-10-07 11:34] VITALS: BP 162/79; PULSE 107; RESP 20; TEMP 37.2; O2SAT 91
--- NOTE | 2021-10-07 13:16 | P.DS_ITS ---
DS: Providers Provider Date of Service: 10/07/21 Date of admission: 10/05/21 16:24 Primary care physician: Erick Jade MD Consults: 10/05/21 15:27 Consult to Pulmonology Routine Consulting Provider: [facility] Reason for consultation: home Trelegy- hypercarbic resp fail/COPD DS: Diagnosis Discharge Diagnosis (1) COPD exacerbation: Status: Acute (2) Acute on chronic respiratory failure with hypoxia and hypercapnia: Status: Acute (3) COPD (chronic obstructive pulmonary disease): Status: Acute (4) Syncope: Status: Acute DS: Summary Hospital Course Hospital Course: from my admission H+P, 10/05/21: 66yo F with COPD with chronic hypoxic + hypercarbic respiratory failure on 3-4L of O2 and Trilogy ventilator, prior intubation, fully vaccinated against COVID- 19, presenting after suddenly losing consciousness and falling in context of generalized malaise.? Chronic dyspnea, no worse than usual.? No purulent sputum and no fever.? No chest pain.? No headache.? Lives alone; no sick contacts.? No recent medication changes.? She sees Dr Acharya at [facility]. In the ED, ABG, showed pCO2 of 104 with pH 7.29, only partially compensated with serum bicarbonate of 41.? She was started on BiPAP.? CT of the head and C-spine were negative for acute injury.? COVID-19 EDU was negative. CXR showed chronic coarse interstitial markings.? WBC count was normal. She was taken of BiPAP and feels much better.? A repeat ABG is pending. Repeat ABG was 7.35/80/58. [place] [facility] [place]. Acetazolamide was increased and AVAPS settings were changed through [facility]. She was treated with a steroid taper and discharged home to continue services through [facility]. She should follow up with Pulmonology in 1-2 weeks and Primary Care in 1 week. Ultimately, syncope was attributed to hypercarbia; there were no arrhythimas on telemetry and no pathology on echocardiogram. Time Spent with Patient Time attestation: Total time spent providing and/or coordinating discharge services: Discharge coordination time: Greater than 30 minutes Quality: Stroke Does the patient have a stroke diagnosis?: No Physical Exam Vital Signs: Vital Signs: Last Vital Signs Temp 98.9 F 10/07/21 11:34 Pulse 107 H 10/07/21 11:34 Resp 20 10/07/21 11:34 BP 162/79 H 10/07/21 11:34 Pulse Ox 91 L 10/07/21 11:34 Oxygen Flow Rate 4 10/05/21 06:07 Body Mass Index 27.4 Gen: in no acute distress HEENT: sclera anicteric, moist mucus membranes Neck: supple Lungs: CTAB Heart: regular rate and rhythm, no murmurs Abd: soft, non-tender, non-distended Ext: no edema Skin: warm/well-perfused Neuro: alert and oriented x3, no focal findings Psych: appropriate affect DS: Data Data Completed and Pending Completed studies during hospitalization [Text1]: Laboratory Results WBC 5.9 X10*3/uL (4.8-10.8) 10/06/21 07:02 RBC 3.95 X10*6/uL (4.20-5.50) L 10/06/21 07:02 Hgb 11.8 g/dl (12.0-16.0) L 10/06/21 07:02 Hct 39.0 % (37.0-47.0) 10/06/21 07:02 MCV 98.7 fL (80.0-98.0) H 10/06/21 07:02 MCH 29.9 pg (27.0-33.0) 10/06/21 07:02 MCHC 30.3 g/dl (31.0-35.0) L 10/06/21 07:02 RDW 13.7 % (11.0-16.0) 10/06/21 07:02 Plt Count 395 X10*3/uL (160-400) 10/06/21 07:02 MPV 9.4 fL (9.4-12.3) 10/06/21 07:02 Immature Gran % (Auto) 0.3 % (0.0-0.4) 10/05/21 06:23 Neut % (Auto) 72.6 % (45-73) 10/05/21 06:23 Lymph % (Auto) 11.7 % (20-40) L 10/05/21 06:23 [place] % (Auto) 11.2 % (2-11) H 10/05/21 06:23 Eos % (Auto) 3.7 % (0-4) 10/05/21 06:23 Baso % (Auto) 0.5 % (0-2) 10/05/21 06:23 Lymph # (Auto) 0.7 X10*3/uL (1.2-4.9) L 10/05/21 06:23 [place] # (Auto) 0.7 X10*3/uL (0.1-1.2) 10/05/21 06:23 Eos # (Auto) 0.2 X10*3/uL (0.0-0.4) 10/05/21 06:23 Baso # (Auto) 0.0 X10*3/uL (0.0-0.2) 10/05/21 06:23 Abs Immat Gran (auto) 0.02 X10*3/uL (0.00-0.03) 10/05/21 06:23 Absolute Neuts (auto) 4.4 x10*3/uL (2.0-8.3) 10/05/21 06:23 Absolute Nucleated RBC 0.000 X10*3/uL (0.0-0.012) 10/06/21 07:02 Nucleated RBC % (auto) 0.0 /100WBC (0.0-0.2) 10/06/21 07:02 O2 Saturation 87.0 % 10/05/21 16:44 ABG pH at Pt Temp 7.35 (7.35-7.45) 10/05/21 16:44 ABG pH (Temp Correct) 7.35 (7.35-7.45) 10/05/21 16:44 ABG pCO2 at Pt Temp 80 mmHg (32-45) H* 10/05/21 16:44 ABG pCO2 (Temp Corrct 79 mmHg (32-45) H* 10/05/21 16:44 ABG pO2 at Pt Temp 58 mmHg (83-108) L 10/05/21 16:44 ABG pO2 (Temp Correct 57 (83-108) L 10/05/21 16:44 ABG HCO3 45 mmol/L (22-26) H 10/05/21 16:44 ABG Base Excess (Actual) 15.6 mmol/L 10/05/21 16:44 VBG pH 7.45 (7.32-7.43) H 10/07/21 10:22 VBG pCO2 59 mmHg 10/07/21 10:22 VBG pO2 55 mmHg 10/07/21 10:22 VBG HCO3 41 mmol/L (22-26) H 10/07/21 10:22 VBG O2 Saturation 85.0 % 10/07/21 10:22 VBG Base Excess 14.8 mmol/L 10/07/21 10:22 Sodium 142 mmol/L (135-145) 10/07/21 06:28 Potassium 4.4 mmol/L (3.3-5.1) 10/07/21 06:28 Chloride 95 mmol/L (96-108) L 10/07/21 06:28 Carbon Dioxide 44 mmol/L (22-29) H* 10/07/21 06:28 Anion Gap 7 (12-20) L 10/07/21 06:28 BUN 13 mg/dL (9-16) 10/07/21 06:28 Creatinine 0.73 mg/dL (0.5-1.4) 10/07/21 06:28 Estim Creat Clear Calc 75.7 10/07/21 06:28 Estimated GFR > 60 10/07/21 06:28 Random Glucose 109 mg/dL (60-115) 10/07/21 06:28 Fasting Glucose 105 mg/dL (60-99) H 10/05/21 06:23 Calcium 8.7 mg/dL (8.4-10.2) 10/07/21 06:28 Total Bilirubin 0.2 mg/dL (0.0-1.0) 10/05/21 06:23 AST 22 U/L (5-31) 10/05/21 06:23 ALT 16 U/L (0-31) 10/05/21 06:23 Alkaline Phosphatase 74 U/L (39-117) 10/05/21 06:23 Troponin I High Sens 4.6 ng/L (<3.5-17.0) 10/05/21 08:57 B-Natriuretic Peptide 28 pg/mL (<100) 10/05/21 08:57 Total Protein 6.8 g/dL (6.5-8.0) 10/05/21 06:23 Albumin 4.2 g/dL (3.5-5.0) 10/05/21 06:23 Procalcitonin 0.03 ng/mL 10/05/21 06:23 Urine Color YELLOW 10/05/21 20:53 Urine Appearance CLEAR 10/05/21 20:53 Urine pH 6.0 (5.0-8.0) 10/05/21 20:53 Ur Specific [place] 1.025 (1.005-1.025) 10/05/21 20:53 Urine Protein 2+ MG/DL (NEG-TRACE) H 10/05/21 20:53 Urine Glucose (UA) NEG MG/DL (NEG) 10/05/21 20:53 Urine Ketones 15 MG/DL (NEG) 10/05/21 20:53 Urine Blood 1+ (NEG) H 10/05/21 20:53 Urine Nitrite NEG (NEG) 10/05/21 20:53 Ur Leukocyte Esterase NEG (NEG) 10/05/21 20:53 Urine RBC 15-29 /HPF (0) H 10/05/21 20:53 Urine WBC 0-2 /HPF (0-4) 10/05/21 20:53 Ur Squamous Epith Cells TRACE /LPF 10/05/21 20:53 Urine Bacteria NONE /LPF 10/05/21 20:53 Urine Mucus TRACE /LPF 10/05/21 20:53 Respiratory Panel [place] See Note 10/05/21 20:53 Adenovirus (Rapid PCR) Not Detected (Not Detect.) 10/05/21 20:53 B.pert (TEM-PCR) Not Detected (Not Detect.) 10/05/21 20:53 B.parapertussis DNA PCR Not Detected (Not Detect.) 10/05/21 20:53 C. pneumoniae DNA (PCR) Not Detected (Not Detect.) 10/05/21 20:53 Coronavirus OC43 (PCR) Not Detected (Not Detect.) 10/05/21 20:53 Coronavirus HKU1 (PCR) Not Detected (Not Detect.) 10/05/21 20:53 Coronavirus 229E (PCR) Not Detected (Not Detect.) 10/05/21 20:53 COVID-19 (EDU) Negative (Negative) 10/05/21 13:18 COVID-19 Clin Com See Note 10/05/21 13:18 Coronavirus NL63 (PCR) Not Detected (Not Detect.) 10/05/21 20:53 Human Metapneumovir PCR Not Detected (Not Detect.) 10/05/21 20:53 Influenza A (RT-PCR) Not Detected (Not Detect.) 10/05/21 20:53 Influenza B (RT-PCR) Not Detected (Not Detect.) 10/05/21 20:53 M. pneumoniae (PCR) Not Detected (Not Detect.) 10/05/21 20:53 Parainfluenza 1 (PCR) Not Detected (Not Detect.) 10/05/21 20:53 Parainfluenza 2 (PCR) Not Detected (Not Detect.) 10/05/21 20:53 Parainfluenza 3 (PCR) Not Detected (Not Detect.) 10/05/21 20:53 Parainfluenza 4 (PCR) Not Detected (Not Detect.) 10/05/21 20:53 RSV (PCR) Not Detected (Not Detect.) 10/05/21 20:53 Entero/Rhino (PCR) Not Detected (Not Detect.) 10/05/21 20:53 SARS-CoV-2 RNA (RT-PCR) Not Detected (Not Detect.) 10/05/21 20:[address] 10/05/21 07:17 IMPRESSION: 1. No acute intracranial pathology. 2. No fractures or dislocations of the cervical spine. This CT examination was performed using dose optimization techniques as appropriate, variously including the following: *Automated exposure control *Adjustment of mA and/or kV according to patient size (this includes techniques or standardized protocols for targeted exams where dose is matched to indication/reason for exam; i.e. extremities or head) *Use of iterative reconstruction technique Chest X-Ray 10/05/21 07:17 IMPRESSION: Stable chronic changes of the chest. No acute pulmonary pathology identified. Head CT 10/05/21 07:17 IMPRESSION: 1. No acute intracranial pathology. 2. No fractures or dislocations of the cervical spine. This CT examination was performed using dose optimization techniques as appropriate, variously including the following: *Automated exposure control *Adjustment of mA and/or kV according to patient size (this includes techniques or standardized protocols for targeted exams where dose is matched to indication/reason for exam; i.e. extremities or head) *Use of iterative reconstruction technique TTE 10/06/21 - The left ventricular systolic function is hyperdynamic.? The ? visually estimated ejection fraction is >70%.? - There is mild mitral annular calcification.? - No obvious valvular pathology seen on this study.? Discharge Plan Discharge Patient Disposition: Home Health Service Discharge Diagnosis: acute/chronic hypercapneic/hypoxic respiratory failure, COPD exacerbation Referrals: [facility] servcies thru [facility] [Other] - 1 Week Erick Jade MD [Primary Care Provider] - 1 Week Caden Acharya MD [Physician] - 1 Week Discharge Medications: New prednisone 10 mg tablet See Rx Instructions .ROUTE .COMPLEX Qty: 20 RF: 0 acetazolamide 250 mg tablet 250 mg PO .MWF Qty: 12 RF: 0 Continued aripiprazole [Abilify] 10 mg Tablet 10 mg PO DAILY RF: 0 acetaminophen 500 mg Tablet 1,000 mg PO TID PRN (Reason: Headache) RF: 0 aspirin 81 mg Tablet,Delayed Release (Dr/Ec) 81 mg PO DAILY RF: 0 Breo Ellipta 200-25 mcg/dose Blister With Device 1 inh INHALATION DAILY RF: 0 alendronate [Fosamax] 70 mg Tablet 70 mg PO QWEEK RF: 0 lamotrigine 150 mg Tablet 300 mg PO BEDTIME RF: 0 lamotrigine 200 mg Tablet 200 mg PO DAILY RF: 0 magnesium oxide 400 mg magnesium Tablet 400 mg PO BID RF: 0 metoprolol succinate 50 mg Capsule,Sprinkle,Er 24hr 50 mg PO DAILY RF: 0 montelukast 10 mg Tablet 10 mg PO BEDTIME RF: 0 multivitamin Tablet 1 tab PO DAILY RF: 0 albuterol sulfate [Proventil HFA] 90 mcg/actuation Hfa Aerosol Inhaler 2 puff INHALATION QID PRN (Reason: Respiratory Distress) RF: 0 selenium sulfide 1 % Shampoo 10 ml TOPICAL 2XW RF: 0 Viibryd 20 mg Tablet 20 mg PO DAILY RF: 0 cholecalciferol (vitamin D3) [Vitamin D3] 50 mcg (2,000 unit) Capsule 50 mcg PO DAILY RF: 0 Spiriva with HandiHaler 18 mcg Capsule, W/Inhalation Device 1 cap INHALATION DAILY RF: 0 mirtazapine 15 mg tablet 15 mg PO BEDTIME RF: 0 Cortisporin-TC 3.3-3-10-0.5 mg/mL Drops,Suspension 5 drp OTIC (EARS) TID RF: 0 Nicotrol 10 mg Cartridge 1 inh INHALATION Q2H PRN (Reason: Nicotine Cravings) RF: 0 gabapentin 300 mg Capsule 300 mg PO BEDTIME RF: 0 polyethylene glycol 3350 17 gram/dose Powder 17 g PO DAILY RF: 0 oxymetazoline 0.05 % [place],Non-Aerosol 2 spray INTRANASAL QID PRN (Reason: Nasal Congestion) RF: 0 crisaborole 2 % Ointment 1 appl TOPICAL BID RF: 0 theophylline 300 mg tablet extended release 12 hr 300 mg PO Q12H 30 Days Qty: 60 RF: 5 ipratropium bromide 42 mcg (0.06 %) spray,non-aerosol 2 spray intranasal TID 30 Days Qty: 15 RF: 3 melatonin [Melatin] 3 mg tablet 6 mg PO BEDTIME PRN (Reason: sleep) 30 Days Qty: 60 RF: 4 ondansetron HCl [Zofran] 4 mg tablet 4 mg PO Q8H PRN (Reason: Nausea) RF: 0 sennosides [Senokot] 8.6 mg tablet 8.6 mg PO BEDTIME RF: 0 Discontinued acetazolamide 250 mg tablet 250 mg PO MOFR RF: 0 prednisone 10 mg tablet 10 mg PO Q48H RF: 0 Discharge Orders: Discharge Order (Routine); Ordered 10/07/21 Ordered By: Puja Goldsmith Diet: advance to usual diet Activity on Discharge: As tolerated Stand Alone Forms: Patient Portal Discharge page Care Plan Goals: lung health Health Concerns: acute/chronic hypercapneic/hypoxic respiratory failure, COPD exacerbation Plan of Treatment: use Trilogy ventilator- adjustments will be made by [facility] increase acetazolamide to 250 mg Tuesday and Tuesday continue inhalers prednisone taper: 40 mg daily x 2d, 30 mg daily x2d, 20 mg daily x2d, 10 mg daily x2d, then resume prior dosing Assessment: See Discharge Summary Patient Instructions: COPD (Chronic Obstructive Pulmonary Disease) (DC)
== END 2021-10-07 02:45 | disposition home health service (06) | DRG 190 ==
LOC: HO.ED 09:54 → HO.EDOVER 16:30 → HO.IMC 10-06 06:58
PROVIDERS: Hospitalist; Admitting Provider Family Medicine; Emergency Provider Emergency Medicine Emergency Medical Services; PCP Internal Medicine Rheumatology; Visit Provider Family Medicine
DX: J44.1 Chronic obstructive pulmonary disease with (acute) exacerbation (principal); J96.21 Acute and chronic respiratory failure with hypoxia; J96.22 Acute and chronic respiratory failure with hypercapnia; R29.6 Repeated falls; F17.290 Nicotine dependence, other tobacco product, uncomplicated; F31.9 Bipolar disorder, unspecified; Z91.81 History of falling; Z20.822 Contact with and (suspected) exposure to COVID-19; Z99.81 Dependence on supplemental oxygen; Z88.2 Allergy status to sulfonamides; Z88.5 Allergy status to narcotic agent; Z79.82 Long term (current) use of aspirin; Z79.899 Other long term (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 therapy
CPT/HCPCS: 36415; 36600; 70450; 71045; 72125; 80048; 80053; 81001; 82803; 83880; 84145; 84484; 85025; 85027; 87633; 87635; 93005; 93306; 94640; 94660; 96374; 97162; 99285; 99291; J1650; J2930

== ENCOUNTER 2021-10-21 14:17 | Emergency (ER) | payer OTHER, MEDICAID, SELFPAY ==
--- NOTE | ~2021-10-21 | XR_ITS ---
EXAMINATION: XR CHEST CLINICAL INFORMATION: COPD and SOB. COMPARISON: None TECHNIQUE: Frontal view of the chest was obtained. FINDINGS: The lungs are expanded with bilateral diffuse coarse interstitial markings likely chronic changes. There is no acute consolidation or pleural effusion. The heart size and pulmonary vascularity is normal. There are old healed left mid lateral rib fractures. No other bony abnormality seen. XR/XR chest 1V IMPRESSION: Significant progression of chronic interstitial lung disease when compared to chest 01/07/2017. Chest x-ray 12/01/2015 was normal.
[2021-10-21 14:26] VITALS: BP 128/76; PULSE 104; O2SAT 93
[2021-10-21 14:30] VITALS: BP 143/70; PULSE 102; RESP 18; TEMP 37.6; O2SAT 97; BMI 29.6
--- NOTE | 2021-10-21 15:22 | ECG_ITS ---
Test Reason : SOB Blood Pressure : / mmHG Vent. Rate : 096 BPM Atrial Rate : 096 BPM P-R Int : 126 ms QRS Dur : 092 ms QT Int : 340 ms P-R-T Axes : 066 061 029 degrees QTc Int : 429 ms Normal sinus rhythm Intra-ventricular conduction delay Borderline ECG When compared with ECG of 05-OCT-2021 08:36, Premature atrial complexes are no longer Present Referred By: Maria Luz Lu Electronically Signed By:KRISTOPHER BREWER MD
[2021-10-21 16:02] LABS: MANUAL DIFF FLAG NO
[2021-10-21 16:04] LABS: Basophils Percent Auto 0.6 % (0-2); Eosinophils Absolute Auto 0.1 X10*3/uL (0.0-0.4); Eosinophils Percent Auto 1.1 % (0-4); Hematocrit 39.5 % (37.0-47.0); Imm Gran Abs Auto 0.07 X10*3/uL (0.00-0.03); Lymphocytes Absolute Auto 0.4 X10*3/uL (1.2-4.9); Lymphocytes Percent Auto 5.3 % (20-40); Mean Corpuscular HGB Conc 30.4 g/dl (31.0-35.0); Mean Corpuscular Hemoglobin 29.8 pg (27.0-33.0); Mean Platelet Volume 8.8 fL (9.4-12.3); Monocytes Absolute Auto 0.4 X10*3/uL (0.1-1.2); Monocytes Percent Auto 5.7 % (2-11); Neutrophils Percent Auto 86.3 % (45-73); Platelet Count 394 X10*3/uL (160-400); Red Blood Count 4.03 X10*6/uL (4.20-5.50); Red Cell Distribution Width 14.2 % (11.0-16.0)
[2021-10-21 16:10] LABS: VBG HCO3 42 mmol/L (22-26); VBG pCO2 79 mmHg; VBG pH 7.33 (7.32-7.43); VBG pO2 153 mmHg
--- NOTE | 2021-10-21 16:14 | ED_ITS ---
HPI - General Adult General Chief complaint: General Medical Stated complaint: INCREASING SOB/CONFUSION Time Seen by Provider: 10/21/21 14:26 Source: patient Mode of arrival: ambulatory Limitations: no limitations History of Present Illness HPI narrative: Patient comes emergency room complaining shortness of breath, confusion. Patient states that she had a brief episode of confusion, she thought that today is instead of Tuesday and she started preparing the turkey for Thanksgiving. [employer] called EMS. EMS reports that the patient's oxygen saturation was 80% unclear on how many L of oxygen. Patient known to use 3 L at baseline for COPD. EMS with patient on 4 L of oxygen, patient's oxygen saturation improved to the low 90s. patient denies any other symptoms, denies chest tightness, no shortness of breath. Patient feels at baseline Related Data Home Medications Medication Instructions Recorded Confirmed acetaminophen 500 mg tablet 1,000 mg PO TID PRN 02/09/21 10/05/21 albuterol sulfate 90 mcg/actuation 2 puff INHALATION QID PRN 02/09/21 10/05/21 aerosol inhaler (Proventil HFA) alendronate 70 mg tablet (Fosamax) 70 mg PO QWEEK 02/09/21 10/05/21 aripiprazole 10 mg tablet (Abilify) 10 mg PO DAILY 02/09/21 10/05/21 aspirin 81 mg tablet,delayed 81 mg PO DAILY 02/09/21 10/05/21 release cholecalciferol (vitamin D3) 50 50 mcg PO DAILY 02/09/21 10/05/21 mcg (2,000 unit) capsule (Vitamin D3) fluticasone furoate 200 1 inh INHALATION DAILY 02/09/21 10/05/21 mcg-vilanterol 25 mcg/dose inhalation powder (Breo Ellipta) lamotrigine 150 mg tablet 300 mg PO BEDTIME 02/09/21 10/05/21 lamotrigine 200 mg tablet 200 mg PO DAILY 02/09/21 10/05/21 magnesium oxide 400 mg PO BID 02/09/21 10/05/21 metoprolol succinate 50 mg capsule 50 mg PO DAILY 02/09/21 10/05/21 sprinkle, ext. release 24 hr montelukast 10 mg tablet 10 mg PO BEDTIME 02/09/21 10/05/21 multivitamin 1 tab PO DAILY 02/09/21 10/05/21 selenium sulfide 1 % shampoo 10 ml TOPICAL 2XW 02/09/21 10/05/21 tiotropium bromide 18 mcg capsule 1 cap INHALATION DAILY 02/09/21 10/05/21 with inhalation device (Spiriva with HandiHaler) vilazodone 20 mg tablet (Viibryd) 20 mg PO DAILY 02/09/21 10/05/21 mirtazapine 15 mg tablet 15 mg PO BEDTIME 09/10/21 10/05/21 ondansetron HCl 4 mg tablet 4 mg PO Q8H PRN 09/10/21 10/05/21 (Zofran) sennosides 8.6 mg tablet (Senokot) 8.6 mg PO BEDTIME 09/10/21 10/05/21 crisaborole 2 % topical ointment 1 appl TOPICAL BID 10/05/21 10/05/21 gabapentin 300 mg capsule 300 mg PO BEDTIME 10/05/21 10/05/21 [id number] 3.3 5 drp OTIC (EARS) TID 10/05/21 10/05/21 mg-3 mg-10 mg-0.5 mg/mL ear drops,susp (Cortisporin-TC) nicotine 10 mg inhalation 1 inh INHALATION Q2H PRN 10/05/21 10/05/21 cartridge (Nicotrol) oxymetazoline 0.05 % nasal spray 2 spray INTRANASAL QID PRN 10/05/21 10/05/21 polyethylene glycol 3350 17 17 g PO DAILY 10/05/21 10/05/21 gram/dose oral powder Previous Rx's Medication Instructions Recorded ipratropium bromide 42 mcg (0.06 2 spray INTRANASAL TID 30 Days #15 05/12/21 %) nasal spray ml theophylline 300 mg 300 mg PO Q12H 30 Days #60 tab 05/12/21 tablet,extended release,12 hr melatonin 3 mg tablet (Melatin) 6 mg PO BEDTIME PRN 30 Days #60 tab 06/11/21 acetazolamide 250 mg tablet 250 mg PO .MWF #12 tab 10/07/21 prednisone 10 mg tablet See Rx Instructions .ROUTE 10/07/21 .COMPLEX #20 tab Allergies Allergy/AdvReac Type Severity Reaction Status Date / Time codeine [Codeine] Allergy Intermediate RESTLESS/RA Verified 10/05/21 06:14 SH Sulfa (Sulfonamide Allergy Intermediate HIVES Verified 10/05/21 06:14 Antibiotics) haloperidol [Haldol] Allergy Unknown Palpitation Verified 10/05/21 06:14 s Review of Systems Review of Systems: Constitutional : No Weight loss, No Fever, No Chills, No Night Sweats, No Fatigue, No Malaise ENT/Mouth : No Hearing loss, No Ear Pain, No Nasal Congestion, No Sinus Pain, No Hoarseness, No sore throat, No Rhinorrhea, No Swallowing Difficulty Eyes: No Eye Pain, No Swelling, No Redness, No Foreign Body, No Discharge, No Vision Changes Cardiovascular : No Chest Pain, No SOB, No Dyspnea on Exertion, No Orthopnea, No Edema, No Palpitations Respiratory : Complaining of chronic Cough, No Sputum, No Wheezing, No Smoke Exposure, complaining of chronic dyspnea worsening. Gastrointestinal : No Nausea, No Vomiting, No Diarrhea, No Constipation, No abdominal Pain, No Hematochezia, No Melena Genitourinary : no irregular bleeding, No Dysuria, No Urinary Frequency, No Hematuria, No Urinary Incontinence, No Urgency, No Flank Pain, No Urinary Flow Changes, No Hesitancy Musculoskeletal : No joint pain, No Myalgias, No Joint Swelling Skin : No Skin Lesions, No rash Neuro : No Weakness, No Numbness, No Paresthesias, No Loss of Consciousness, No Dizziness, No Headache, complaining of confusion Psych : No Anxiety/Panic, No Depression, No SI/HI/AH/VH, No Social Issues, Heme/Lymph: No Bruising, No Bleeding,No Lymphadenopathy Endocrine : No Polyuria, No Polydipsia, No Temperature Intolerance [facility] Past Medical History Medical History Acute and chronic respiratory failure with hypercapnia Acute metabolic encephalopathy Acute on chronic respiratory failure with hypoxia and hypercapnia Bipolar depression Bronchitis Chronic respiratory failure COPD (chronic obstructive pulmonary disease) COPD exacerbation COPD with exacerbation Eczema Fall Insomnia Limb swelling Vasomotor rhinitis Family History Family History Other Hypertension Social History Social History Household Members: None Housing: Apartment Housing Other:: associated with [employer] Do you presently have visiting nurse or other home services: Yes (home health aid) Alcohol intake: unknown Patient Tobacco Use Status: Former Tobacco user Quit Date: 2018 Tobacco use type: Cigarette Years Smoked: 20+ years e-Cigarette/Vaping Use: Never Used Second Hand Smoke Exposure: No Advance Directives: Yes Advance Directives on File: Yes Advance Directives Date on File: 02/13/21 service: No Physical Exam Vital Signs: Vital Signs: Last Vital Signs Temp 98 F 10/21/21 18:57 Pulse 87 10/21/21 18:57 Resp 20 10/21/21 18:57 BP 159/67 H 10/21/21 18:57 Pulse Ox 100 10/21/21 18:57 Oxygen Flow Rate 3 10/21/21 14:30 Body Mass Index 29.6 Const: Other: Appearance: Alert. Oriented X3. No acute distress. Eyes: Pupils equal, round and reactive to light. ENT: Pharynx normal. Neck: Normal inspection. Neck supple. No lymph nodes noted. No crepitus CVS: Normal heart rate and rhythm. Pulses normal. Normal S1 and S2 Respiratory: No respiratory distress. On 4 L oxygen saturating at 97%, decreased breath sounds, mild bilateral wheezing Abdomen: Soft and nontender. No rigidity. No distention. Skin: Skin warm and dry. Normal skin color. Normal skin turgor. Extremities: No lower extremity edema. No lower extremity edema. No Laceratio ns. No Rash Neuro: Oriented X 3. No motor deficit. No sensory deficit. Moving all extermities. No slurred speech. Course Course Course Narrative: I discussed the labs and imaging with the patient. While patient has been in the emergency room, her oxygen saturation has been 92%, even walking with the help of a walker which she uses at baseline. Urine negative. Patient states that she no longer feels confused, feeling well. No chest pain, patient states that her breathing is at baseline. I discussed with the patient that we can offer her short-term rehab if she feels weak. Patient declined. Patient is alert and oriented x3, no acute distress, feeling at baseline Medical Decision Making Lab Data Result diagrams: 10/21/21 15:55 10/21/21 15:54 Labs: Lab Results 10/21/21 10/21/21 10/21/21 Range/Units 15:54 15:54 15:55 WBC 7.0 (4.8-10.8) X10*3/uL RBC 4.03 L (4.20-5.50) X10*6/uL Hgb 12.0 (12.0-16.0) g/dl Hct 39.5 (37.0-47.0) % MCV 98.0 (80.0-98.0) fL MCH 29.8 (27.0-33.0) pg MCHC 30.4 L (31.0-35.0) g/dl RDW 14.2 (11.0-16.0) % Plt Count 394 (160-400) X10*3/uL MPV 8.8 L (9.4-12.3) fL Immature Gran % (Auto) 1.0 H (0.0-0.4) % Neut % (Auto) 86.3 H (45-73) % Lymph % (Auto) 5.3 L (20-40) % Yates % (Auto) 5.7 (2-11) % Eos % (Auto) 1.1 (0-4) % Baso % (Auto) 0.6 (0-2) % Lymph # (Auto) 0.4 L (1.2-4.9) X10*3/uL Yates # (Auto) 0.4 (0.1-1.2) X10*3/uL Eos # (Auto) 0.1 (0.0-0.4) X10*3/uL Baso # (Auto) 0.0 (0.0-0.2) X10*3/uL Abs Immat Gran (auto) 0.07 H (0.00-0.03) X10*3/uL Absolute Neuts (auto) 6.0 (2.0-8.3) x10*3/uL Absolute Nucleated RBC 0.000 (0.0-0.012) X10*3/uL Nucleated RBC % (auto) 0.0 (0.0-0.2) /100WBC VBG pH (7.32-7.43) VBG pCO2 mmHg VBG pO2 mmHg VBG HCO3 (22-26) mmol/L VBG O2 Saturation % VBG Base Excess mmol/L Sodium 141 (135-145) mmol/L Potassium 4.1 (3.3-5.1) mmol/L Chloride 100 (96-108) mmol/L Carbon Dioxide 35 H (22-29) mmol/L Anion Gap 10 L (12-20) BUN 11 (9-16) mg/dL Creatinine 0.77 (0.5-1.4) mg/dL Estim Creat Clear Calc 66.5 Estimated GFR > 60 Random Glucose 127 H (60-115) mg/dL Lactic Acid (0.5-2.0) mmol/L Calcium 8.7 (8.4-10.2) mg/dL Total Bilirubin 0.2 (0.0-1.0) mg/dL Direct Bilirubin < 0.2 (0.0-0.5) mg/dL AST 19 (5-31) U/L ALT 18 (0-31) U/L Alkaline Phosphatase 74 (39-117) U/L Troponin I High Sens 4.3 (<3.5-17.0) ng/L B-Natriuretic Peptide 16 (<100) pg/mL Total Protein 6.5 (6.5-8.0) g/dL Albumin 3.9 (3.5-5.0) g/dL Urine Color Urine Appearance Urine pH (5.0-8.0) Ur Specific [place] (1.005-1.025) Urine Protein (NEG-TRACE) MG/DL Urine Glucose (UA) (NEG) MG/DL Urine Ketones (NEG) MG/DL Urine Blood (NEG) Urine Nitrite (NEG) Ur Leukocyte Esterase (NEG) Urine RBC (0) /HPF Urine WBC (0-4) /HPF Ur Squamous Epith Cells /LPF Amorphous Sediment /LPF Urine Bacteria /LPF Urine Mucus /LPF COVID-19 (EDU) (Negative) COVID-19 Clin Com 10/21/21 10/21/21 10/21/21 Range/Units 15:55 16:00 18:51 WBC (4.8-10.8) X10*3/uL RBC (4.20-5.50) X10*6/uL Hgb (12.0-16.0) g/dl Hct (37.0-47.0) % MCV (80.0-98.0) fL MCH (27.0-33.0) pg MCHC (31.0-35.0) g/dl RDW (11.0-16.0) % Plt Count (160-400) X10*3/uL MPV (9.4-12.3) fL Immature Gran % (Auto) (0.0-0.4) % Neut % (Auto) (45-73) % Lymph % (Auto) (20-40) % Yates % (Auto) (2-11) % Eos % (Auto) (0-4) % Baso % (Auto) (0-2) % Lymph # (Auto) (1.2-4.9) X10*3/uL Yates # (Auto) (0.1-1.2) X10*3/uL Eos # (Auto) (0.0-0.4) X10*3/uL Baso # (Auto) (0.0-0.2) X10*3/uL Abs Immat Gran (auto) (0.00-0.03) X10*3/uL Absolute Neuts (auto) (2.0-8.3) x10*3/uL Absolute Nucleated RBC (0.0-0.012) X10*3/uL Nucleated RBC % (auto) (0.0-0.2) /100WBC VBG pH 7.33 (7.32-7.43) VBG pCO2 79 mmHg VBG pO2 153 mmHg VBG HCO3 42 H (22-26) mmol/L VBG O2 Saturation 99.0 % VBG Base Excess 13.0 mmol/L Sodium (135-145) mmol/L Potassium (3.3-5.1) mmol/L Chloride (96-108) mmol/L Carbon Dioxide (22-29) mmol/L Anion Gap (12-20) BUN (9-16) mg/dL Creatinine (0.5-1.4) mg/dL Estim Creat Clear Calc Estimated GFR Random Glucose (60-115) mg/dL Lactic Acid 0.3 L (0.5-2.0) mmol/L Calcium (8.4-10.2) mg/dL Total Bilirubin (0.0-1.0) mg/dL Direct Bilirubin (0.0-0.5) mg/dL AST (5-31) U/L ALT (0-31) U/L Alkaline Phosphatase (39-117) U/L Troponin I High Sens (<3.5-17.0) ng/L B-Natriuretic Peptide (<100) pg/mL Total Protein (6.5-8.0) g/dL Albumin (3.5-5.0) g/dL Urine Color Urine Appearance Urine pH (5.0-8.0) Ur Specific [place] (1.005-1.025) Urine Protein (NEG-TRACE) MG/DL Urine Glucose (UA) (NEG) MG/DL Urine Ketones (NEG) MG/DL Urine Blood (NEG) Urine Nitrite (NEG) Ur Leukocyte Esterase (NEG) Urine RBC (0) /HPF Urine WBC (0-4) /HPF Ur Squamous Epith Cells /LPF Amorphous Sediment /LPF Urine Bacteria /LPF Urine Mucus /LPF COVID-19 (EDU) Negative (Negative) COVID-19 Clin Com See Note 10/21/21 Range/Units 19:29 WBC (4.8-10.8) X10*3/uL RBC (4.20-5.50) X10*6/uL Hgb (12.0-16.0) g/dl Hct (37.0-47.0) % MCV (80.0-98.0) fL MCH (27.0-33.0) pg MCHC (31.0-35.0) g/dl RDW (11.0-16.0) % Plt Count (160-400) X10*3/uL MPV (9.4-12.3) fL Immature Gran % (Auto) (0.0-0.4) % Neut % (Auto) (45-73) % Lymph % (Auto) (20-40) % Yates % (Auto) (2-11) % Eos % (Auto) (0-4) % Baso % (Auto) (0-2) % Lymph # (Auto) (1.2-4.9) X10*3/uL Yates # (Auto) (0.1-1.2) X10*3/uL Eos # (Auto) (0.0-0.4) X10*3/uL Baso # (Auto) (0.0-0.2) X10*3/uL Abs Immat Gran (auto) (0.00-0.03) X10*3/uL Absolute Neuts (auto) (2.0-8.3) x10*3/uL Absolute Nucleated RBC (0.0-0.012) X10*3/uL Nucleated RBC % (auto) (0.0-0.2) /100WBC VBG pH (7.32-7.43) VBG pCO2 mmHg VBG pO2 mmHg VBG HCO3 (22-26) mmol/L VBG O2 Saturation % VBG Base Excess mmol/L Sodium (135-145) mmol/L Potassium (3.3-5.1) mmol/L Chloride (96-108) mmol/L Carbon Dioxide (22-29) mmol/L Anion Gap (12-20) BUN (9-16) mg/dL Creatinine (0.5-1.4) mg/dL Estim Creat Clear Calc Estimated GFR Random Glucose (60-115) mg/dL Lactic Acid (0.5-2.0) mmol/L Calcium (8.4-10.2) mg/dL Total Bilirubin (0.0-1.0) mg/dL Direct Bilirubin (0.0-0.5) mg/dL AST (5-31) U/L ALT (0-31) U/L Alkaline Phosphatase (39-117) U/L Troponin I High Sens (<3.5-17.0) ng/L B-Natriuretic Peptide (<100) pg/mL Total Protein (6.5-8.0) g/dL Albumin (3.5-5.0) g/dL Urine Color YELLOW Urine Appearance CLEAR Urine pH 7.0 (5.0-8.0) Ur Specific [place] 1.020 (1.005-1.025) Urine Protein 1+ H (NEG-TRACE) MG/DL Urine Glucose (UA) NEG (NEG) MG/DL Urine Ketones NEG (NEG) MG/DL Urine Blood 2+ H (NEG) Urine Nitrite NEG (NEG) Ur Leukocyte Esterase NEG (NEG) Urine RBC 10-14 H (0) /HPF Urine WBC 0 (0-4) /HPF Ur Squamous Epith Cells TRACE /LPF Amorphous Sediment 1+ /LPF Urine Bacteria TRACE /LPF Urine Mucus TRACE /LPF COVID-19 (EDU) (Negative) COVID-19 Clin Com Discharge Plan Discharge Clinical Impression: Confusion, Chronic dyspnea Patient Disposition: Home, Self-Care Prescriptions: No Action aripiprazole [Abilify] 10 mg Tablet 10 mg PO DAILY RF: 0 acetaminophen 500 mg Tablet 1,000 mg PO TID PRN (Reason: Headache) RF: 0 aspirin 81 mg Tablet,Delayed Release (Dr/Ec) 81 mg PO DAILY RF: 0 Breo Ellipta 200-25 mcg/dose Blister With Device 1 inh INHALATION DAILY RF: 0 alendronate [Fosamax] 70 mg Tablet 70 mg PO QWEEK RF: 0 lamotrigine 150 mg Tablet 300 mg PO BEDTIME RF: 0 lamotrigine 200 mg Tablet 200 mg PO DAILY RF: 0 magnesium oxide 400 mg magnesium Tablet 400 mg PO BID RF: 0 metoprolol succinate 50 mg Capsule,Sprinkle,Er 24hr 50 mg PO DAILY RF: 0 montelukast 10 mg Tablet 10 mg PO BEDTIME RF: 0 multivitamin Tablet 1 tab PO DAILY RF: 0 albuterol sulfate [Proventil HFA] 90 mcg/actuation Hfa Aerosol Inhaler 2 puff INHALATION QID PRN (Reason: Respiratory Distress) RF: 0 selenium sulfide 1 % Shampoo 10 ml TOPICAL 2XW RF: 0 Viibryd 20 mg Tablet 20 mg PO DAILY RF: 0 cholecalciferol (vitamin D3) [Vitamin D3] 50 mcg (2,000 unit) Capsule 50 mcg PO DAILY RF: 0 Spiriva with HandiHaler 18 mcg Capsule, W/Inhalation Device 1 cap INHALATION DAILY RF: 0 mirtazapine 15 mg tablet 15 mg PO BEDTIME RF: 0 Cortisporin-TC 3.3-3-10-0.5 mg/mL Drops,Suspension 5 drp OTIC (EARS) TID RF: 0 Nicotrol 10 mg Cartridge 1 inh INHALATION Q2H PRN (Reason: Nicotine Cravings) RF: 0 gabapentin 300 mg Capsule 300 mg PO BEDTIME RF: 0 polyethylene glycol 3350 17 gram/dose Powder 17 g PO DAILY RF: 0 oxymetazoline 0.05 % [place],Non-Aerosol 2 spray INTRANASAL QID PRN (Reason: Nasal Congestion) RF: 0 crisaborole 2 % Ointment 1 appl TOPICAL BID RF: 0 prednisone 10 mg tablet See Rx Instructions .ROUTE .COMPLEX Qty: 20 RF: 0 acetazolamide 250 mg tablet 250 mg PO .MWF Qty: 12 RF: 0 theophylline 300 mg tablet extended release 12 hr 300 mg PO Q12H 30 Days Qty: 60 RF: 5 ipratropium bromide 42 mcg (0.06 %) spray,non-aerosol 2 spray intranasal TID 30 Days Qty: 15 RF: 3 melatonin [Melatin] 3 mg tablet 6 mg PO BEDTIME PRN (Reason: sleep) 30 Days Qty: 60 RF: 4 ondansetron HCl [Zofran] 4 mg tablet 4 mg PO Q8H PRN (Reason: Nausea) RF: 0 sennosides [Senokot] 8.6 mg tablet 8.6 mg PO BEDTIME RF: 0
[2021-10-21 16:20] LABS: COVID-19 Test Negative (Negative)
[2021-10-21 16:21] LABS: Alanine Aminotransferase 18 U/L (0-31); Albumin Level 3.9 g/dL (3.5-5.0); Alkaline Phosphatase 74 U/L (39-117); Anion Gap 10 (12-20); Aspartate Amino Transferase 19 U/L (5-31); Bilirubin Direct < 0.2 mg/dL (0.0-0.5); Bilirubin Total 0.2 mg/dL (0.0-1.0); Blood Urea Nitrogen 11 mg/dL (9-16); Calcium 8.7 mg/dL (8.4-10.2); Carbon Dioxide 35 mmol/L (22-29); Chloride 100 mmol/L (96-108); Creatinine Clr Calc Pharmacy 66.5; Estimated Glomerular Filt Rate > 60; Glucose Random 127 mg/dL (60-115); Potassium 4.1 mmol/L (3.3-5.1); Sodium 141 mmol/L (135-145); Total Protein 6.5 g/dL (6.5-8.0)
[2021-10-21 16:23] LABS: B Type Natriuretic Peptide 16 pg/mL (<100); Troponin-I High Sensitivity 4.3 ng/L (<3.5-17.0)
[2021-10-21 16:41] LABS: Venous Blood Gas Refer to POC result
--- NOTE | 2021-10-21 18:47 | PC.NURSE ---
pt alert and oriented, pt c/o sob, and confusion. pt reports that she got up this morning and started preparing thanksving turkey because she thought it was . pt on 3L n/c at baseline satting at 80%. pt's o2 was increased to 4L by ems. pt currently satting 93-95% on 3L n/c.
[2021-10-21 18:57] VITALS: BP 159/67; PULSE 87; RESP 20; TEMP 36.6; O2SAT 100
[2021-10-21 19:04] LABS: Lactic Acid 0.3 mmol/L (0.5-2.0)
[2021-10-21 19:35] LABS: Appearance Urine CLEAR; Color Urine YELLOW; Glucose Urine UA NEG (NEG); Leukocyte Esterase Urine NEG (NEG); Nitrite Urine NEG (NEG); UACC Culture Trigger NO; Urine Blood 2+ (NEG); Urine Ketones NEG (NEG); Urine Protein 1+ MG/DL (NEG-TRACE)
[2021-10-21 19:44] LABS: Amorphous Sediment Urine 1+ /LPF; Bacteria Urine TRACE /LPF; Mucus Urine TRACE /LPF; Squamous Epithelial Cell Urine TRACE /LPF; WBC Urine 0 /HPF (0-4)
--- NOTE | 2021-10-21 22:11 | PC.NURSE ---
pt awaiting for ride home by chair farias.
--- NOTE | 2021-10-21 22:49 | PC.NURSE ---
EMS HERE FOR PT'S RIDE TO HOME. PT LEFT ED IN NAD. NO IV.
== END 2021-10-21 22:51 | disposition home or self-care (01) ==
PROVIDERS: Emergency Provider Emergency Medicine; PCP Internal Medicine Rheumatology
DX: R06.02 Shortness of breath (principal); R41.0 Disorientation, unspecified; R07.9 Chest pain, unspecified; Z79.899 Other long term (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 therapy; Z20.822 Contact with and (suspected) exposure to COVID-19; Z87.891 Personal history of nicotine dependence
CPT/HCPCS: 36415; 71045; 80048; 80076; 81001; 82803; 83605; 83880; 84484; 85025; 87040; 87635; 93005; 99284

== ENCOUNTER → 2021-11-04 09:42 | Outpatient (BNVA) | payer OTHER, MEDICAID, SELFPAY | PROVIDERS: PCP Internal Medicine Rheumatology; Visit Provider Hospitalist | DX: J44.9 Chronic obstructive pulmonary disease, unspecified (principal); J96.10 Chronic respiratory failure, unspecified whether with hypoxia or hypercapnia; J30.0 Vasomotor rhinitis; G47.00 Insomnia, unspecified | CPT/HCPCS: 99212 ==

== ENCOUNTER 2021-11-18 11:03 | Inpatient (IN) | payer OTHER, MEDICAID, SELFPAY ==
[2021-11-18] VITALS (15 sets, daily range): BP systolic 88–165; BP diastolic 42–82; PULSE 75–118; RESP 10–25; TEMP 37.7; O2SAT 60–98; BMI 24.7
--- NOTE | ~2021-11-18 | XR_ITS ---
EXAMINATION: XR CHEST CLINICAL INFORMATION: Hypoxia COMPARISON: 10/21/2021 TECHNIQUE: Portable 12:40 PM view of the chest was obtained. FINDINGS: Overall worsening aeration bilaterally with mixture of interstitial and early alveolar consolidations bilaterally consistent with pneumonia. Heart size normal. No pleural disease or other findings The interim. XR/XR chest 1V IMPRESSION: Progression of parenchymal disease which may be on the basis of acute on chronic disease as above. Consider atypical infection.
--- NOTE | ~2021-11-18 | CT_ITS ---
EXAM: CT scan of the head and cervical spine. INDICATION: Reason for Exam trauma TECHNIQUE: A noncontrast CT scan was performed from the skull base to the vertex. A noncontrast CT scan of the cervical spine was performed from the base of the skull through T1 at 2.5 mm and 1.25 mm collimation. Coronal and sagittal reformats were obtained at the acquisition workstation. This CT examination was performed using dose optimization techniques as appropriate, variously including the following: *Automated exposure control *Adjustment of mA and/or kV according to patient size (this includes techniques or standardized protocols for targeted exams where dose is matched to indication/reason for exam; i.e. extremities or head) *Use of iterative reconstruction technique DLP: 742 mGy-cm COMPARISON: Baseline 10/05/2021 FINDINGS: Motion degradation limits assessment. Head: There is no evidence of acute intracranial hemorrhage or territorial infarction. Salguero-white matter differentiation is preserved. No abnormal mass effect or midline shift. No extra-axial fluid collections. No abnormal attenuation is demonstrated within the brain parenchyma. Scattered periventricular and deep white matter hypodensities consistent with microangiopathy. The ventricles and sulcal spaces are proportional without hydrocephalus. Proportional prominence of the ventricles and sulcal spaces. No acute osseous or soft tissue abnormalities. The mastoid air cells and visualized portions of the paranasal sinuses are well aerated. Cervical Spine: The atlantooccipital and atlantoaxial articulations remain well aligned. Straightening of the normal cervical lordosis. Otherwise, there is anatomic alignment of the vertebral bodies and posterior elements. No evidence of acute fracture or subluxation. The vertebral body heights and disc spaces are maintained. There is no prevertebral soft tissue swelling. The thyroid gland and remaining cervical soft tissues are normal in appearance. The lung apices demonstrate no abnormalities. CT/CT cervical spine wo con IMPRESSION: No acute intracranial pathology. No fracture dislocation cervical spine.
--- NOTE | 2021-11-18 11:24 | ECG_ITS ---
Test Reason : fall Blood Pressure : / mmHG Vent. Rate : 121 BPM Atrial Rate : 121 BPM P-R Int : 154 ms QRS Dur : 076 ms QT Int : 284 ms P-R-T Axes : 070 079 054 degrees QTc Int : 403 ms Sinus tachycardia Possible Left atrial enlargement Nonspecific ST abnormality Abnormal ECG When compared with ECG of 21-OCT-2021 16:49, Nonspecific T wave abnormality now evident in Lateral leads Referred By: Robert Leal Electronically Signed By:JOYCE CEBALLOS
[2021-11-18 11:29] LABS: Glucose, Whole Blood 144 mg/dL (60-115)
--- NOTE | 2021-11-18 11:29 | ED.GENADULT ---
HPI - General Adult General Chief complaint: Altered Mental Status Stated complaint: FOUND ON FLOOR HOME O2 OFF 60%RA,95% DUONEB Time Seen by Provider: 11/18/21 11:17 Source: EMS and old records reviewed Mode of arrival: EMS Limitations: altered mental status History of Present Illness HPI narrative: Patient found unresponsive on the floor of her assisted living apartment by her chair hyster driver. Small laceration to her right periorbital region. Patient with initial oxygen saturation in the 60s which improved with a DuoNeb by EMS. She remains minimally responsive. She has a history of hypercarbic respiratory failure with her last admission in September of this year. Further history is unknown Related Data Home Medications Medication Instructions Recorded Confirmed acetaminophen 500 mg tablet 1,000 mg PO TID PRN 02/09/21 10/05/21 albuterol sulfate 90 mcg/actuation 2 puff INHALATION QID PRN 02/09/21 10/05/21 aerosol inhaler (Proventil HFA) alendronate 70 mg tablet (Fosamax) 70 mg PO QWEEK 02/09/21 10/05/21 aripiprazole 10 mg tablet (Abilify) 10 mg PO DAILY 02/09/21 10/05/21 aspirin 81 mg tablet,delayed 81 mg PO DAILY 02/09/21 10/05/21 release cholecalciferol (vitamin D3) 50 50 mcg PO DAILY 02/09/21 10/05/21 mcg (2,000 unit) capsule (Vitamin D3) fluticasone furoate 200 1 inh INHALATION DAILY 02/09/21 10/05/21 mcg-vilanterol 25 mcg/dose inhalation powder (Breo Ellipta) lamotrigine 150 mg tablet 300 mg PO BEDTIME 02/09/21 10/05/21 lamotrigine 200 mg tablet 200 mg PO DAILY 02/09/21 10/05/21 magnesium oxide 400 mg PO BID 02/09/21 10/05/21 metoprolol succinate 50 mg capsule 50 mg PO DAILY 02/09/21 10/05/21 sprinkle, ext. release 24 hr montelukast 10 mg tablet 10 mg PO BEDTIME 02/09/21 10/05/21 multivitamin 1 tab PO DAILY 02/09/21 10/05/21 selenium sulfide 1 % shampoo 10 ml TOPICAL 2XW 02/09/21 10/05/21 tiotropium bromide 18 mcg capsule 1 cap INHALATION DAILY 02/09/21 10/05/21 with inhalation device (Spiriva with HandiHaler) vilazodone 20 mg tablet (Viibryd) 20 mg PO DAILY 02/09/21 10/05/21 mirtazapine 15 mg tablet 15 mg PO BEDTIME 09/10/21 10/05/21 ondansetron HCl 4 mg tablet 4 mg PO Q8H PRN 09/10/21 10/05/21 (Zofran) sennosides 8.6 mg tablet (Senokot) 8.6 mg PO BEDTIME 09/10/21 10/05/21 crisaborole 2 % topical ointment 1 appl TOPICAL BID 10/05/21 10/05/21 gabapentin 300 mg capsule 300 mg PO BEDTIME 10/05/21 10/05/21 [id number] 3.3 5 drp OTIC (EARS) TID 10/05/21 10/05/21 mg-3 mg-10 mg-0.5 mg/mL ear drops,susp (Cortisporin-TC) nicotine 10 mg inhalation 1 inh INHALATION Q2H PRN 10/05/21 10/05/21 cartridge (Nicotrol) oxymetazoline 0.05 % nasal spray 2 spray INTRANASAL QID PRN 10/05/21 10/05/21 polyethylene glycol 3350 17 17 g PO DAILY 10/05/21 10/05/21 gram/dose oral powder Previous Rx's Medication Instructions Recorded ipratropium bromide 42 mcg (0.06 2 spray INTRANASAL TID 30 Days #15 05/12/21 %) nasal spray ml theophylline 300 mg 300 mg PO Q12H 30 Days #60 tab 05/12/21 tablet,extended release,12 hr melatonin 3 mg tablet (Melatin) 6 mg PO BEDTIME PRN 30 Days #60 tab 06/11/21 acetazolamide 250 mg tablet 250 mg PO .MWF #12 tab 10/07/21 prednisone 10 mg tablet See Rx Instructions .ROUTE 10/07/21 .COMPLEX #20 tab Allergies Allergy/AdvReac Type Severity Reaction Status Date / Time codeine [Codeine] Allergy Intermediate RESTLESS/RA Verified 11/04/21 10:07 SH haloperidol [Haldol] Allergy Intermediate Palpitation Verified 11/04/21 10:07 s Sulfa (Sulfonamide Allergy Intermediate HIVES Verified 11/04/21 10:07 Antibiotics) Review of Systems Review of Systems: Unable to obtain review of systems secondary to mental status change [facility] Past Medical History Medical History Acute and chronic respiratory failure with hypercapnia Acute metabolic encephalopathy Acute on chronic respiratory failure with hypoxia and hypercapnia Bipolar depression Bronchitis Chronic respiratory failure COPD (chronic obstructive pulmonary disease) COPD exacerbation COPD with exacerbation Eczema Fall Insomnia Limb swelling Vasomotor rhinitis Family History Family History Other Hypertension Social History Social History Household Members: None Housing: Apartment Housing Other:: associated with [employer] Do you presently have visiting nurse or other home services: Yes (home health aid) Alcohol intake: unknown Patient Tobacco Use Status: Former Tobacco user Quit Date: 2018 Tobacco use type: Cigarette Years Smoked: 20+ years e-Cigarette/Vaping Use: Never Used Second Hand Smoke Exposure: No Advance Directives: Yes Advance Directives on File: Yes Advance Directives Date on File: 02/13/21 service: No Physical Exam Vital Signs: Vital Signs: Last Vital Signs Temp 100 F 11/18/21 11:16 Pulse 99 11/18/21 18:16 Resp 17 11/18/21 18:16 BP 143/82 H 11/18/21 18:16 Pulse Ox 96 11/18/21 18:16 Oxygen Flow Rate 3 11/18/21 11:16 BMI result Body Mass Index 24.7 Const: Other: Patient arrives with C-spine collar in place. She opens her eyes to gentle shaking but is nonverbal and does not follow commands. HENMT: Other: Patient with small superficial abrasion, laceration approximately 3/4 of a cm in length under right lateral periorbital region. No active bleeding. No sutures needed. No bony crepitus. No other obvious head trauma. Eyes: Other: Pupils are approximately 4 mm and reactive to light. There is no dysconjugate gaze. Unable to assess for extraocular movement Neck: Other: Patient arrives in cervical collar. Unable to assess for tenderness Chest: Other: No obvious chest wall trauma Resp: Other: Bibasilar rales with diminished air entry bilaterally Cardio: Other: Regular rate and rhythm systolic murmur. No rubs or gallops. GI: Other: Soft and nondistended. Skin: Other: No rash. Warm pink and dry. Extrem: Other: No obvious extremity shortening or deformity Course Course Course Narrative: Unresponsive patient with an apparent fall and unknown down time. She arrives, however, dressed without evidence of urinary incontinence. History of hypercarbic respiratory failure which could certainly be the cause of her mental status. Also in this differential would include ... Intracranial hemorrhage Intoxication Pneumonia Hepatic encephalopathy Metabolic encephalopathy Blood pressure is normal. Sepsis not likely. IV fluids Solu-Medrol IV DuoNeb Will have sleep patient in cervical collar until CT scan is complete and interpreted. 11:54 a.m.. EKG shows nonspecific ST T-wave changes in tachycardia. No obvious acute ischemic changes however. 12:[address] scan shows no intracranial hemorrhage in no C-spine fracture. Cervical collar removed. BiPAP started 3:33 p.m.. Initial venous blood gas shows pH is 7.26 with a pCO2 of 50. She maintained well on BiPAP for approximately an hour. Patient is more awake. Will repeat blood gas. ABG shows continued acidosis although slightly improved. PCO2 is now in the 90s. 7:36 p.m.. VBG shows pCO2 is 106 with a pH of 7.24. Patient is still awake and comfortable blood still retaining significant CO2. ICU consult placed and case discussed with Dr. Low. Patient will go to the intensive care unit. Continue current treatment. Will hold off on intubation is patient is awake and tolerating BiPAP well Medical Decision Making Lab Data Result diagrams: 11/18/21 12:30 11/18/21 12:30 Labs: Lab Results 11/18/21 11/18/21 11/18/21 Range/Units 11:11 12:30 12:30 WBC 9.0 (4.8-10.8) X10*3/uL RBC 4.18 L (4.20-5.50) X10*6/uL Hgb 12.2 (12.0-16.0) g/dl Hct 40.9 (37.0-47.0) % MCV 97.8 (80.0-98.0) fL MCH 29.2 (27.0-33.0) pg MCHC 29.8 L (31.0-35.0) g/dl RDW 14.4 (11.0-16.0) % Plt Count 476 H (160-400) X10*3/uL MPV 8.5 L (9.4-12.3) fL Immature Gran % (Auto) 0.9 H (0.0-0.4) % Neut % (Auto) 88.6 H (45-73) % Lymph % (Auto) 3.3 L (20-40) % [place] % (Auto) 3.6 (2-11) % Eos % (Auto) 2.8 (0-4) % Baso % (Auto) 0.8 (0-2) % Lymph # (Auto) 0.3 L (1.2-4.9) X10*3/uL [place] # (Auto) 0.3 (0.1-1.2) X10*3/uL Eos # (Auto) 0.3 (0.0-0.4) X10*3/uL Baso # (Auto) 0.1 (0.0-0.2) X10*3/uL Abs Immat Gran (auto) 0.08 H (0.00-0.03) X10*3/uL Absolute Neuts (auto) 8.0 (2.0-8.3) x10*3/uL Absolute Nucleated RBC 0.000 (0.0-0.012) X10*3/uL Nucleated RBC % (auto) 0.0 (0.0-0.2) /100WBC PT (9.9-13.0) SEC INR (0.9-1.1) D-Dimer High Sensitivty NG/ML O2 Saturation % ABG pH at Pt Temp (7.35-7.45) ABG pCO2 at Pt Temp (32-45) mmHg ABG pO2 at Pt Temp (83-108) mmHg ABG HCO3 (22-26) mmol/L ABG Base Excess (Actual) mmol/L VBG pH (7.32-7.43) VBG pCO2 mmHg VBG pO2 mmHg VBG HCO3 (22-26) mmol/L VBG O2 Saturation % VBG Base Excess mmol/L Sodium 144 (135-145) mmol/L Potassium 3.8 (3.3-5.1) mmol/L Chloride 96 (96-108) mmol/L Carbon Dioxide 41 H* (22-29) mmol/L Anion Gap 11 L (12-20) BUN 10 (9-16) mg/dL Creatinine 0.83 (0.5-1.4) mg/dL Estim Creat Clear Calc 66.3 Estimated GFR > 60 POC Glucose 144 H (60-115) mg/dL Random Glucose 127 H (60-115) mg/dL Lactic Acid (0.5-2.0) mmol/L Calcium 9.7 D (8.4-10.2) mg/dL Magnesium 2.1 (1.6-2.6) mg/dL Total Bilirubin 0.3 (0.0-1.0) mg/dL AST 23 (5-31) U/L ALT 15 (0-31) U/L Alkaline Phosphatase 90 D (39-117) U/L Ammonia (13-55) umol/L Total Creatine Kinase 38 (26-140) U/L Troponin I High Sens (<3.5-17.0) ng/L B-Natriuretic Peptide (<100) pg/mL Total Protein 7.1 (6.5-8.0) g/dL Albumin 4.1 (3.5-5.0) g/dL TSH (0.32-4.0) uIU/mL Influenza Type A (PCR) (Negative) Influenza Type B (PCR) (Negative) RSV RNA Qual (PCR) (Negative) SARS-CoV-2 RNA (RT-PCR) (Negative) 11/18/21 11/18/21 11/18/21 Range/Units 12:30 12:30 12:30 WBC (4.8-10.8) X10*3/uL RBC (4.20-5.50) X10*6/uL Hgb (12.0-16.0) g/dl Hct (37.0-47.0) % MCV (80.0-98.0) fL MCH (27.0-33.0) pg MCHC (31.0-35.0) g/dl RDW (11.0-16.0) % Plt Count (160-400) X10*3/uL MPV (9.4-12.3) fL Immature Gran % (Auto) (0.0-0.4) % Neut % (Auto) (45-73) % Lymph % (Auto) (20-40) % [place] % (Auto) (2-11) % Eos % (Auto) (0-4) % Baso % (Auto) (0-2) % Lymph # (Auto) (1.2-4.9) X10*3/uL [place] # (Auto) (0.1-1.2) X10*3/uL Eos # (Auto) (0.0-0.4) X10*3/uL Baso # (Auto) (0.0-0.2) X10*3/uL Abs Immat Gran (auto) (0.00-0.03) X10*3/uL Absolute Neuts (auto) (2.0-8.3) x10*3/uL Absolute Nucleated RBC (0.0-0.012) X10*3/uL Nucleated RBC % (auto) (0.0-0.2) /100WBC PT 12.9 (9.9-13.0) SEC INR 1.1 (0.9-1.1) D-Dimer High Sensitivty NG/ML O2 Saturation % ABG pH at Pt Temp (7.35-7.45) ABG pCO2 at Pt Temp (32-45) mmHg ABG pO2 at Pt Temp (83-108) mmHg ABG HCO3 (22-26) mmol/L ABG Base Excess (Actual) mmol/L VBG pH (7.32-7.43) VBG pCO2 mmHg VBG pO2 mmHg VBG HCO3 (22-26) mmol/L VBG O2 Saturation % VBG Base Excess mmol/L Sodium (135-145) mmol/L Potassium (3.3-5.1) mmol/L Chloride (96-108) mmol/L Carbon Dioxide (22-29) mmol/L Anion Gap (12-20) BUN (9-16) mg/dL Creatinine (0.5-1.4) mg/dL Estim Creat Clear Calc Estimated GFR POC Glucose (60-115) mg/dL Random Glucose (60-115) mg/dL Lactic Acid 0.7 (0.5-2.0) mmol/L Calcium (8.4-10.2) mg/dL Magnesium (1.6-2.6) mg/dL Total Bilirubin (0.0-1.0) mg/dL AST (5-31) U/L ALT (0-31) U/L Alkaline Phosphatase (39-117) U/L Ammonia (13-55) umol/L Total Creatine Kinase (26-140) U/L Troponin I High Sens 9.9 (<3.5-17.0) ng/L B-Natriuretic Peptide (<100) pg/mL Total Protein (6.5-8.0) g/dL Albumin (3.5-5.0) g/dL TSH (0.32-4.0) uIU/mL Influenza Type A (PCR) (Negative) Influenza Type B (PCR) (Negative) RSV RNA Qual (PCR) (Negative) SARS-CoV-2 RNA (RT-PCR) (Negative) 11/18/21 11/18/21 11/18/21 Range/Units 12:30 12:30 12:30 WBC (4.8-10.8) X10*3/uL RBC (4.20-5.50) X10*6/uL Hgb (12.0-16.0) g/dl Hct (37.0-47.0) % MCV (80.0-98.0) fL MCH (27.0-33.0) pg MCHC (31.0-35.0) g/dl RDW (11.0-16.0) % Plt Count (160-400) X10*3/uL MPV (9.4-12.3) fL Immature Gran % (Auto) (0.0-0.4) % Neut % (Auto) (45-73) % Lymph % (Auto) (20-40) % [place] % (Auto) (2-11) % Eos % (Auto) (0-4) % Baso % (Auto) (0-2) % Lymph # (Auto) (1.2-4.9) X10*3/uL [place] # (Auto) (0.1-1.2) X10*3/uL Eos # (Auto) (0.0-0.4) X10*3/uL Baso # (Auto) (0.0-0.2) X10*3/uL Abs Immat Gran (auto) (0.00-0.03) X10*3/uL Absolute Neuts (auto) (2.0-8.3) x10*3/uL Absolute Nucleated RBC (0.0-0.012) X10*3/uL Nucleated RBC % (auto) (0.0-0.2) /100WBC PT (9.9-13.0) SEC INR (0.9-1.1) D-Dimer High Sensitivty NG/ML O2 Saturation % ABG pH at Pt Temp (7.35-7.45) ABG pCO2 at Pt Temp (32-45) mmHg ABG pO2 at Pt Temp (83-108) mmHg ABG HCO3 (22-26) mmol/L ABG Base Excess (Actual) mmol/L VBG pH (7.32-7.43) VBG pCO2 mmHg VBG pO2 mmHg VBG HCO3 (22-26) mmol/L VBG O2 Saturation % VBG Base Excess mmol/L Sodium (135-145) mmol/L Potassium (3.3-5.1) mmol/L Chloride (96-108) mmol/L Carbon Dioxide (22-29) mmol/L Anion Gap (12-20) BUN (9-16) mg/dL Creatinine (0.5-1.4) mg/dL Estim Creat Clear Calc Estimated GFR POC Glucose (60-115) mg/dL Random Glucose (60-115) mg/dL Lactic Acid (0.5-2.0) mmol/L Calcium (8.4-10.2) mg/dL Magnesium (1.6-2.6) mg/dL Total Bilirubin (0.0-1.0) mg/dL AST (5-31) U/L ALT (0-31) U/L Alkaline Phosphatase (39-117) U/L Ammonia 34 (13-55) umol/L Total Creatine Kinase (26-140) U/L Troponin I High Sens (<3.5-17.0) ng/L B-Natriuretic Peptide 19 (<100) pg/mL Total Protein (6.5-8.0) g/dL Albumin (3.5-5.0) g/dL TSH (0.32-4.0) uIU/mL Influenza Type A (PCR) NEGATIVE (Negative) Influenza Type B (PCR) NEGATIVE (Negative) RSV RNA Qual (PCR) NEGATIVE (Negative) SARS-CoV-2 RNA (RT-PCR) NEGATIVE (Negative) 11/18/21 11/18/21 11/18/21 Range/Units 12:30 12:30 12:31 WBC (4.8-10.8) X10*3/uL RBC (4.20-5.50) X10*6/uL Hgb (12.0-16.0) g/dl Hct (37.0-47.0) % MCV (80.0-98.0) fL MCH (27.0-33.0) pg MCHC (31.0-35.0) g/dl RDW (11.0-16.0) % Plt Count (160-400) X10*3/uL MPV (9.4-12.3) fL Immature Gran % (Auto) (0.0-0.4) % Neut % (Auto) (45-73) % Lymph % (Auto) (20-40) % [place] % (Auto) (2-11) % Eos % (Auto) (0-4) % Baso % (Auto) (0-2) % Lymph # (Auto) (1.2-4.9) X10*3/uL [place] # (Auto) (0.1-1.2) X10*3/uL Eos # (Auto) (0.0-0.4) X10*3/uL Baso # (Auto) (0.0-0.2) X10*3/uL Abs Immat Gran (auto) (0.00-0.03) X10*3/uL Absolute Neuts (auto) (2.0-8.3) x10*3/uL Absolute Nucleated RBC (0.0-0.012) X10*3/uL Nucleated RBC % (auto) (0.0-0.2) /100WBC PT (9.9-13.0) SEC INR (0.9-1.1) D-Dimer High Sensitivty 277 NG/ML O2 Saturation % ABG pH at Pt Temp (7.35-7.45) ABG pCO2 at Pt Temp (32-45) mmHg ABG pO2 at Pt Temp (83-108) mmHg ABG HCO3 (22-26) mmol/L ABG Base Excess (Actual) mmol/L VBG pH 7.26 L (7.32-7.43) VBG pCO2 110 mmHg VBG pO2 47 mmHg VBG HCO3 50 H (22-26) mmol/L VBG O2 Saturation 68.0 % VBG Base Excess 17.1 mmol/L Sodium (135-145) mmol/L Potassium (3.3-5.1) mmol/L Chloride (96-108) mmol/L Carbon Dioxide (22-29) mmol/L Anion Gap (12-20) BUN (9-16) mg/dL Creatinine (0.5-1.4) mg/dL Estim Creat Clear Calc Estimated GFR POC Glucose (60-115) mg/dL Random Glucose (60-115) mg/dL Lactic Acid (0.5-2.0) mmol/L Calcium (8.4-10.2) mg/dL Magnesium (1.6-2.6) mg/dL Total Bilirubin (0.0-1.0) mg/dL AST (5-31) U/L ALT (0-31) U/L Alkaline Phosphatase (39-117) U/L Ammonia (13-55) umol/L Total Creatine Kinase (26-140) U/L Troponin I High Sens (<3.5-17.0) ng/L B-Natriuretic Peptide (<100) pg/mL Total Protein (6.5-8.0) g/dL Albumin (3.5-5.0) g/dL TSH 1.14 (0.32-4.0) uIU/mL Influenza Type A (PCR) (Negative) Influenza Type B (PCR) (Negative) RSV RNA Qual (PCR) (Negative) SARS-CoV-2 RNA (RT-PCR) (Negative) 11/18/21 11/18/21 Range/Units 16:02 18:41 WBC (4.8-10.8) X10*3/uL RBC (4.20-5.50) X10*6/uL Hgb (12.0-16.0) g/dl Hct (37.0-47.0) % MCV (80.0-98.0) fL MCH (27.0-33.0) pg MCHC (31.0-35.0) g/dl RDW (11.0-16.0) % Plt Count (160-400) X10*3/uL MPV (9.4-12.3) fL Immature Gran % (Auto) (0.0-0.4) % Neut % (Auto) (45-73) % Lymph % (Auto) (20-40) % [place] % (Auto) (2-11) % Eos % (Auto) (0-4) % Baso % (Auto) (0-2) % Lymph # (Auto) (1.2-4.9) X10*3/uL [place] # (Auto) (0.1-1.2) X10*3/uL Eos # (Auto) (0.0-0.4) X10*3/uL Baso # (Auto) (0.0-0.2) X10*3/uL Abs Immat Gran (auto) (0.00-0.03) X10*3/uL Absolute Neuts (auto) (2.0-8.3) x10*3/uL Absolute Nucleated RBC (0.0-0.012) X10*3/uL Nucleated RBC % (auto) (0.0-0.2) /100WBC PT (9.9-13.0) SEC INR (0.9-1.1) D-Dimer High Sensitivty NG/ML O2 Saturation 89.0 % ABG pH at Pt Temp 7.29 L (7.35-7.45) ABG pCO2 at Pt Temp 93 H* (32-45) mmHg ABG pO2 at Pt Temp 67 L (83-108) mmHg ABG HCO3 45 H (22-26) mmol/L ABG Base Excess (Actual) 14.2 mmol/L VBG pH 7.24 L (7.32-7.43) VBG pCO2 106 mmHg VBG pO2 43 mmHg VBG HCO3 46 H (22-26) mmol/L VBG O2 Saturation 61.0 % VBG Base Excess 13.8 mmol/L Sodium (135-145) mmol/L Potassium (3.3-5.1) mmol/L Chloride (96-108) mmol/L Carbon Dioxide (22-29) mmol/L Anion Gap (12-20) BUN (9-16) mg/dL Creatinine (0.5-1.4) mg/dL Estim Creat Clear Calc Estimated GFR POC Glucose (60-115) mg/dL Random Glucose (60-115) mg/dL Lactic Acid (0.5-2.0) mmol/L Calcium (8.4-10.2) mg/dL Magnesium (1.6-2.6) mg/dL Total Bilirubin (0.0-1.0) mg/dL AST (5-31) U/L ALT (0-31) U/L Alkaline Phosphatase (39-117) U/L Ammonia (13-55) umol/L Total Creatine Kinase (26-140) U/L Troponin I High Sens (<3.5-17.0) ng/L B-Natriuretic Peptide (<100) pg/mL Total Protein (6.5-8.0) g/dL Albumin (3.5-5.0) g/dL TSH (0.32-4.0) uIU/mL Influenza Type A (PCR) (Negative) Influenza Type B (PCR) (Negative) RSV RNA Qual (PCR) (Negative) SARS-CoV-2 RNA (RT-PCR) (Negative) Critical Care Time Critical Care Time Total Critical Care Time: 120 Attestation: Critical care time outside of separately billable procedure time Discharge Plan Discharge Patient Disposition: Admitted As Inpatient Prescriptions: No Action aripiprazole [Abilify] 10 mg Tablet 10 mg PO DAILY RF: 0 acetaminophen 500 mg Tablet 1,000 mg PO TID PRN (Reason: Headache) RF: 0 aspirin 81 mg Tablet,Delayed Release (Dr/Ec) 81 mg PO DAILY RF: 0 Breo Ellipta 200-25 mcg/dose Blister With Device 1 inh INHALATION DAILY RF: 0 alendronate [Fosamax] 70 mg Tablet 70 mg PO QWEEK RF: 0 lamotrigine 150 mg Tablet 300 mg PO BEDTIME RF: 0 lamotrigine 200 mg Tablet 200 mg PO DAILY RF: 0 magnesium oxide 400 mg magnesium Tablet 400 mg PO BID RF: 0 metoprolol succinate 50 mg Capsule,Sprinkle,Er 24hr 50 mg PO DAILY RF: 0 montelukast 10 mg Tablet 10 mg PO BEDTIME RF: 0 multivitamin Tablet 1 tab PO DAILY RF: 0 albuterol sulfate [Proventil HFA] 90 mcg/actuation Hfa Aerosol Inhaler 2 puff INHALATION QID PRN (Reason: Respiratory Distress) RF: 0 selenium sulfide 1 % Shampoo 10 ml TOPICAL 2XW RF: 0 Viibryd 20 mg Tablet 20 mg PO DAILY RF: 0 cholecalciferol (vitamin D3) [Vitamin D3] 50 mcg (2,000 unit) Capsule 50 mcg PO DAILY RF: 0 Spiriva with HandiHaler 18 mcg Capsule, W/Inhalation Device 1 cap INHALATION DAILY RF: 0 mirtazapine 15 mg tablet 15 mg PO BEDTIME RF: 0 Cortisporin-TC 3.3-3-10-0.5 mg/mL Drops,Suspension 5 drp OTIC (EARS) TID RF: 0 Nicotrol 10 mg Cartridge 1 inh INHALATION Q2H PRN (Reason: Nicotine Cravings) RF: 0 gabapentin 300 mg Capsule 300 mg PO BEDTIME RF: 0 polyethylene glycol 3350 17 gram/dose Powder 17 g PO DAILY RF: 0 oxymetazoline 0.05 % Staples,Non-Aerosol 2 spray INTRANASAL QID PRN (Reason: Nasal Congestion) RF: 0 crisaborole 2 % Ointment 1 appl TOPICAL BID RF: 0 prednisone 10 mg tablet See Rx Instructions .ROUTE .COMPLEX Qty: 20 RF: 0 acetazolamide 250 mg tablet 250 mg PO .MWF Qty: 12 RF: 0 theophylline 300 mg tablet extended release 12 hr 300 mg PO Q12H 30 Days Qty: 60 RF: 5 ipratropium bromide 42 mcg (0.06 %) spray,non-aerosol 2 spray intranasal TID 30 Days Qty: 15 RF: 3 melatonin [Melatin] 3 mg tablet 6 mg PO BEDTIME PRN (Reason: sleep) 30 Days Qty: 60 RF: 4 ondansetron HCl [Zofran] 4 mg tablet 4 mg PO Q8H PRN (Reason: Nausea) RF: 0 sennosides [Senokot] 8.6 mg tablet 8.6 mg PO BEDTIME RF: 0
[2021-11-18] MEDS: methylPREDNISolone Sod Succ 125 MG/2 ML VIAL IVPUSH (12:12)
[2021-11-18] MEDS: 0.9 % Sodium Chloride 500 ML IV (12:12)
[2021-11-18 12:34] LABS: MANUAL DIFF FLAG NO
[2021-11-18 12:36] LABS: Basophils Absolute Auto 0.1 X10*3/uL (0.0-0.2); Basophils Percent Auto 0.8 % (0-2); Eosinophils Absolute Auto 0.3 X10*3/uL (0.0-0.4); Eosinophils Percent Auto 2.8 % (0-4); Hematocrit 40.9 % (37.0-47.0); Hemoglobin 12.2 g/dl (12.0-16.0); Imm Gran Abs Auto 0.08 X10*3/uL (0.00-0.03); Imm Gran Pct Auto 0.9 % (0.0-0.4); Lymphocytes Absolute Auto 0.3 X10*3/uL (1.2-4.9); Lymphocytes Percent Auto 3.3 % (20-40); Mean Corpuscular HGB Conc 29.8 g/dl (31.0-35.0); Mean Corpuscular Hemoglobin 29.2 pg (27.0-33.0); Mean Corpuscular Volume 97.8 fL (80.0-98.0); Mean Platelet Volume 8.5 fL (9.4-12.3); Monocytes Absolute Auto 0.3 X10*3/uL (0.1-1.2); Monocytes Percent Auto 3.6 % (2-11); Neutrophils Percent Auto 88.6 % (45-73); Platelet Count 476 X10*3/uL (160-400); Red Blood Count 4.18 X10*6/uL (4.20-5.50); Red Cell Distribution Width 14.4 % (11.0-16.0)
[2021-11-18 12:37] LABS: VBG Base Excess 17.1 mmol/L; VBG HCO3 50 mmol/L (22-26); VBG pCO2 110 mmHg; VBG pH 7.26 (7.32-7.43); VBG pO2 47 mmHg
[2021-11-18 12:37] LABS: Venous Blood Gas Refer to POC result
[2021-11-18 12:43] LABS: INTERNATIONAL NORM RATIO 1.1 (0.9-1.1); Prothrombin Time 12.9 SEC (9.9-13.0)
[2021-11-18 12:46] LABS: D Dimer High Sensitivity 277 NG/ML
[2021-11-18 12:49] LABS: Lactic Acid 0.7 mmol/L (0.5-2.0)
[2021-11-18 12:55] LABS: Troponin-I High Sensitivity 9.9 ng/L (<3.5-17.0)
[2021-11-18 12:56] LABS: Alanine Aminotransferase 15 U/L (0-31); Albumin Level 4.1 g/dL (3.5-5.0); Alkaline Phosphatase 90 U/L (39-117); Anion Gap 11 (12-20); Aspartate Amino Transferase 23 U/L (5-31); B Type Natriuretic Peptide 19 pg/mL (<100); Bilirubin Total 0.3 mg/dL (0.0-1.0); Blood Urea Nitrogen 10 mg/dL (9-16); Calcium 9.7 mg/dL (8.4-10.2); Chloride 96 mmol/L (96-108); Creatinine Clr Calc Pharmacy 66.3; Estimated Glomerular Filt Rate > 60; Glucose Random 127 mg/dL (60-115); Magnesium 2.1 mg/dL (1.6-2.6); Potassium 3.8 mmol/L (3.3-5.1); Sodium 144 mmol/L (135-145); Total Protein 7.1 g/dL (6.5-8.0)
[2021-11-18 12:57] LABS: Ammonia 34 umol/L (13-55)
[2021-11-18 13:03] LABS: Carbon Dioxide 41 mmol/L (22-29)
[2021-11-18 13:10] LABS: TSH reflex Free T4 1.14 uIU/mL (0.32-4.0)
[2021-11-18] MEDS: cefTRIAXone sodium 1 GM in 0.9 % Sodium Chloride 50 ML IV (13:37)
[2021-11-18 13:53] LABS: Influenza A PCR NEGATIVE (Negative); Influenza B PCR NEGATIVE (Negative); Resp Syncy Virus RNA Qual PCR NEGATIVE (Negative); SARS COV2 PCR INHOUSE NEGATIVE (Negative)
[2021-11-18 16:13] LABS: ABG Refer to POC result
[2021-11-18 16:14] LABS: ABG Base Excess 14.2 mmol/L; ABG HCO3 45 mmol/L (22-26); ABG pCO2 93 mmHg (32-45); ABG pH 7.29 (7.35-7.45); ABG pO2 67 mmHg (83-108)
[2021-11-18] MEDS: 0.9 % Sodium Chloride 1,000 ML 999 ML IV (17:28)
[2021-11-18 18:46] LABS: Venous Blood Gas Refer to POC result
[2021-11-18 18:49] LABS: VBG Base Excess 13.8 mmol/L; VBG HCO3 46 mmol/L (22-26); VBG pCO2 106 mmHg; VBG pH 7.24 (7.32-7.43); VBG pO2 43 mmHg
[2021-11-18] MEDS: Azithromycin 500 MG in 0.9 % Sodium Chloride 250 ML 125 MG IV (18:51)
--- NOTE | 2021-11-18 19:52 | PC.NURSE ---
Addendum entered by Jayda Elias 11/18/21 19:54: Per Rhina, SpO2 goal 88-92% Original Note: This RN to bedside, assisting primary RN Nick. Lantigua PA at bedside, requests RT to bedside to alter bipap as pt's tidal volume ~750. RT calledSarah to come to bedside to alter settings.
--- NOTE | 2021-11-18 20:35 | PM.CCHP ---
History of Present Illness Date of Service: 11/18/21 Attending physician on admission: Pedro Low Chief Complaint: Obtunded 66YO F with past medical history of end stage COPD with chronic hypoxic respiratory failure on 5L NC and 4hrs during the day & 8hrs QHS NIV (via [facility]) on diamox, hx tracheostomy s/p decannulation (placed 04/22/17), obesity, bipolar depression, limb swelling and eczema presents to the ED from assisted living apartment via EMS. 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 Upon arrival to the ED, she was obtunded, afebrile and hemodynamically stable. Gasses showed pt was hypercarbic; 7.26/110/47/50/68, anion gap 11; other labs unremarkable notably ammonia 34, trop 9.9, cpk 38, bnp 19, d dimer slightly elevated at 277. Head and neck CT negative for acute findings. CXR Progression of parenchymal disease which may be on the basis of acute on chronic disease as above. Consider atypical infection , UA neg for infection, Flu/RSV and Covid negative. EKG sinus tach at 117, nonspecific T wave abnormality in lateral leads. In the ED, the pt was given Diamox, steroids, 1L NS, ceftriaxone and azithromycin. PO Klor-Con was ordered but I asked the nurse not to give it as pt is on BiPAP, still drowsy and risk for aspiration. Will give IV K if needed but pt's K was 3.8 earlier today. Last admission for same issue was Sep 2021. Pt sees Dr Acharya for Pulmonology (see his office visit note from 11/04/21 for history and further details). Pt is on BiPAP and will be brought to the ICU for monitoring. Review of Systems Review of Systems: pt denies any chest pain or abdominal pain Yes all other systems are reviewed and are negative [facility] Past Medical History Medical History (Updated 11/18/21 @ 20:55 by Juhi Busby PA-C) Acute and chronic respiratory failure with hypercapnia Acute metabolic encephalopathy Acute on chronic respiratory failure with hypoxia and hypercapnia Bipolar depression Bronchitis Chronic respiratory failure COPD (chronic obstructive pulmonary disease) COPD exacerbation COPD with exacerbation Eczema Fall Insomnia Limb swelling Vasomotor rhinitis Functional capacity: uses cane/walker Family History Family History Other Hypertension Social History Social History Household Members: None Housing: Assisted Living Facility Housing Other:: person comes to do housework. Do you presently have visiting nurse or other home services: No Alcohol intake: unknown Patient Tobacco Use Status: Former Tobacco user Quit Date: 2018 Tobacco use type: Cigarette Years Smoked: 20+ years e-Cigarette/Vaping Use: Never Used Second Hand Smoke Exposure: No Use of substances other than those prescribed or required for medical reasons: No Have you been hit, kicked, punched, or otherwise hurt by someone within the past year? If so, by whom?: No Do you feel safe in your current relationship?: No Current Relationship Is there a partner from a previous relationship who is making you feel unsafe now?: No Are you made to feel afraid or neglected: No Spiritual Healthcare Practices: no Hoahaoism Healthcare Practices: none Cultural Healthcare Practices: none Advance Directives: Yes Advance Directives on File: Yes Advance Directives Date on File: 02/13/21 Do you have thoughts of harming others: None Do you have a plan to hurt others: No Plan Recently lost weight without trying: No Nutrition Risks: No Nutritional Risk Patient : No : No Poor oral hygiene: No service: No Meds Allergies Allergy/AdvReac Type Severity Reaction Status Date / Time codeine [Codeine] Allergy Intermediate RESTLESS/RA Verified 11/04/21 10:07 SH haloperidol [Haldol] Allergy Intermediate Palpitation Verified 11/04/21 10:07 s Sulfa (Sulfonamide Allergy Intermediate HIVES Verified 11/04/21 10:07 Antibiotics) Active Medications: Current Medications Heparin Sodium (Porcine) (Heparin Sodium,Porcine 5,000 Unit/Ml Vial) 5,000 unit SUBCUT Q12H [facility] Pharmacy Consult (Consult Rx Perform Med Rec) 1 each MISCELLANE ONCE PRN PRN Reason: Consult order Home Medications Medication Instructions Recorded Confirmed Last Taken Type acetaminophen 500 mg tablet 1,000 mg PO TID PRN 02/09/21 11/18/21 Unknown History albuterol sulfate 90 mcg/actuation 2 puff INHALATION QID PRN 02/09/21 11/18/21 Unknown History aerosol inhaler (Proventil HFA) alendronate 70 mg tablet (Fosamax) 70 mg PO QWEEK 02/09/21 11/18/21 Unknown History aripiprazole 10 mg tablet (Abilify) 10 mg PO DAILY 02/09/21 11/18/21 Unknown History aspirin 81 mg tablet,delayed 81 mg PO DAILY 02/09/21 11/18/21 Unknown History release cholecalciferol (vitamin D3) 50 50 mcg PO DAILY 02/09/21 11/18/21 Unknown History mcg (2,000 unit) capsule (Vitamin D3) fluticasone furoate 200 1 inh INHALATION DAILY 02/09/21 11/18/21 Unknown History mcg-vilanterol 25 mcg/dose inhalation powder (Breo Ellipta) lamotrigine 150 mg tablet 300 mg PO BEDTIME 02/09/21 11/18/21 Unknown History lamotrigine 200 mg tablet 200 mg PO DAILY 02/09/21 11/18/21 Unknown History magnesium oxide 400 mg PO BID 02/09/21 11/18/21 Unknown History montelukast 10 mg tablet 10 mg PO BEDTIME 02/09/21 11/18/21 Unknown History multivitamin 1 tab PO DAILY 02/09/21 11/18/21 Unknown History selenium sulfide 1 % shampoo 10 ml TOPICAL 2XW 02/09/21 11/18/21 Unknown History tiotropium bromide 18 mcg capsule 1 cap INHALATION DAILY 02/09/21 11/18/21 Unknown History with inhalation device (Spiriva with HandiHaler) vilazodone 20 mg tablet (Viibryd) 20 mg PO DAILY 02/09/21 11/18/21 Unknown History mirtazapine 15 mg tablet 15 mg PO BEDTIME 09/10/21 11/18/21 Unknown History ondansetron HCl 4 mg tablet 4 mg PO Q8H PRN 09/10/21 11/18/21 Unknown History (Zofran) sennosides 8.6 mg tablet (Senokot) 8.6 mg PO BEDTIME 09/10/21 11/18/21 Unknown History crisaborole 2 % topical ointment 1 appl TOPICAL BID 10/05/21 11/18/21 Unknown History gabapentin 300 mg capsule 300 mg PO BEDTIME 10/05/21 11/18/21 Unknown History cgadhpjl-aijpop-XR-thonzonm 3.3 2 drp OTIC (EARS) QID 10/05/21 11/18/21 Unknown History mg-3 mg-10 mg-0.5 mg/mL ear drops,susp (Cortisporin-TC) nicotine 10 mg inhalation 1 inh INHALATION Q2H PRN 10/05/21 11/18/21 Unknown History cartridge (Nicotrol) oxymetazoline 0.05 % nasal spray 2 spray INTRANASAL QID PRN 10/05/21 11/18/21 Unknown History polyethylene glycol 3350 17 17 g PO DAILY PRN 10/05/21 11/18/21 Unknown History gram/dose oral powder acetazolamide 250 mg tablet 250 mg PO DAILY 11/18/21 11/18/21 Unknown History betamethasone valerate 0.1 % 1 appl TOPICAL BID 11/18/21 11/18/21 Unknown History topical cream metoprolol succinate 50 mg 50 mg PO DAILY 11/18/21 11/18/21 Unknown History tablet,extended release 24 hr prednisone 10 mg tablet 10 mg PO Q2D 11/18/21 11/18/21 Unknown History Physical Exam Vital Signs: Vital Signs: Last Vital Signs Temp 100 F 11/18/21 11:16 Pulse 88 11/18/21 20:01 Resp 10 L 11/18/21 20:01 BP 129/67 11/18/21 20:01 Pulse Ox 92 11/18/21 20:01 Oxygen Flow Rate 3 11/18/21 11:16 BMI result Body Mass Index 24.7 Const: Other: Pt sitting in the bed, minimally responsive with biPAP mask on General: cooperative, comfortable and no acute distress Nutritional Appearance: thin Orientation/consciousness: oriented to person, oriented to place and No oriented to time Limitations: altered mental status and ambulation with walker HENMT: Head: Yes normal to inspection, Yes No palpable skull fracture present, Yes normocephalic, Yes atraumatic, No Jacobs's sign, Yes laceration (small periorbital lac right eye), No raccoon eyes and No scalp tenderness Ears: external ears normal General nose exam: Normal external nose present Face and sinus: Yes normal facial exam Eyes: General: appearance normal, both eyes and all related structures Pupils: Equal, round and reactive pupils present EOM: EOMs intact bilaterally Neck: Neck: Yes normal visual inspection and Yes full ROM Resp: Effort & Inspection: normal respiratory effort and able to speak in complete sentences Auscultation: diminished lung sounds diffuse Cardio: Rate: regular rate Rhythm: regular rhythm Heart sounds: normal S1 and S2 GI: Inspection: Yes normal to inspection Palpation (GI): Soft to palpation and nontender Skin: General skin exam: no rashes or lesions noted Neuro: General: oriented to person, oriented to place and No oriented to time Cranial nerves: Yes Equal, round and reactive pupils present Extrem: General: Yes normal to inspection and Yes no pedal edema Results Labs CBC and Chem 7: 11/18/21 12:30 11/18/21 12:30 Labs: Laboratory Results - last 24 hr 11/18/21 11/18/21 11/18/21 11:11 12:30 12:30 MCV 97.8 MCH 29.2 MCHC 29.8 L RDW 14.4 Plt Count 476 H MPV 8.5 L Immature Gran % (Auto) 0.9 H Neut % (Auto) 88.6 H Lymph % (Auto) 3.3 L [place] % (Auto) 3.6 Eos % (Auto) 2.8 Baso % (Auto) 0.8 Lymph # (Auto) 0.3 L [place] # (Auto) 0.3 Eos # (Auto) 0.3 Baso # (Auto) 0.1 Abs Immat Gran (auto) 0.08 H Absolute Neuts (auto) 8.0 Absolute Nucleated RBC 0.000 Nucleated RBC % (auto) 0.0 PT INR D-Dimer High Sensitivty O2 Saturation ABG pH at Pt Temp ABG pCO2 at Pt Temp ABG pO2 at Pt Temp ABG HCO3 ABG Base Excess (Actual) VBG pH VBG pCO2 VBG pO2 VBG HCO3 VBG O2 Saturation VBG Base Excess Anion Gap 11 L Estim Creat Clear Calc 66.3 Estimated GFR > 60 POC Glucose 144 H Random Glucose 127 H Lactic Acid Calcium 9.7 D Magnesium 2.1 Total Bilirubin 0.3 AST 23 ALT 15 Alkaline Phosphatase 90 D Ammonia Total Creatine Kinase 38 Troponin I High Sens B-Natriuretic Peptide Total Protein 7.1 Albumin 4.1 TSH Influenza Type A (PCR) Influenza Type B (PCR) RSV RNA Qual (PCR) SARS-CoV-2 RNA (RT-PCR) 11/18/21 11/18/21 11/18/21 12:30 12:30 12:30 MCV MCH MCHC RDW Plt Count MPV Immature Gran % (Auto) Neut % (Auto) Lymph % (Auto) [place] % (Auto) Eos % (Auto) Baso % (Auto) Lymph # (Auto) [place] # (Auto) Eos # (Auto) Baso # (Auto) Abs Immat Gran (auto) Absolute Neuts (auto) Absolute Nucleated RBC Nucleated RBC % (auto) PT 12.9 INR 1.1 D-Dimer High Sensitivty O2 Saturation ABG pH at Pt Temp ABG pCO2 at Pt Temp ABG pO2 at Pt Temp ABG HCO3 ABG Base Excess (Actual) VBG pH VBG pCO2 VBG pO2 VBG HCO3 VBG O2 Saturation VBG Base Excess Anion Gap Estim Creat Clear Calc Estimated GFR POC Glucose Random Glucose Lactic Acid 0.7 Calcium Magnesium Total Bilirubin AST ALT Alkaline Phosphatase Ammonia Total Creatine Kinase Troponin I High Sens 9.9 B-Natriuretic Peptide Total Protein Albumin TSH Influenza Type A (PCR) Influenza Type B (PCR) RSV RNA Qual (PCR) SARS-CoV-2 RNA (RT-PCR) 11/18/21 11/18/21 11/18/21 12:30 12:30 12:30 MCV MCH MCHC RDW Plt Count MPV Immature Gran % (Auto) Neut % (Auto) Lymph % (Auto) [place] % (Auto) Eos % (Auto) Baso % (Auto) Lymph # (Auto) [place] # (Auto) Eos # (Auto) Baso # (Auto) Abs Immat Gran (auto) Absolute Neuts (auto) Absolute Nucleated RBC Nucleated RBC % (auto) PT INR D-Dimer High Sensitivty O2 Saturation ABG pH at Pt Temp ABG pCO2 at Pt Temp ABG pO2 at Pt Temp ABG HCO3 ABG Base Excess (Actual) VBG pH VBG pCO2 VBG pO2 VBG HCO3 VBG O2 Saturation VBG Base Excess Anion Gap Estim Creat Clear Calc Estimated GFR POC Glucose Random Glucose Lactic Acid Calcium Magnesium Total Bilirubin AST ALT Alkaline Phosphatase Ammonia 34 Total Creatine Kinase Troponin I High Sens B-Natriuretic Peptide 19 Total Protein Albumin TSH Influenza Type A (PCR) NEGATIVE Influenza Type B (PCR) NEGATIVE RSV RNA Qual (PCR) NEGATIVE SARS-CoV-2 RNA (RT-PCR) NEGATIVE 11/18/21 11/18/21 11/18/21 12:30 12:30 12:31 MCV MCH MCHC RDW Plt Count MPV Immature Gran % (Auto) Neut % (Auto) Lymph % (Auto) [place] % (Auto) Eos % (Auto) Baso % (Auto) Lymph # (Auto) [place] # (Auto) Eos # (Auto) Baso # (Auto) Abs Immat Gran (auto) Absolute Neuts (auto) Absolute Nucleated RBC Nucleated RBC % (auto) PT INR D-Dimer High Sensitivty 277 O2 Saturation ABG pH at Pt Temp ABG pCO2 at Pt Temp ABG pO2 at Pt Temp ABG HCO3 ABG Base Excess (Actual) VBG pH 7.26 L VBG pCO2 110 VBG pO2 47 VBG HCO3 50 H VBG O2 Saturation 68.0 VBG Base Excess 17.1 Anion Gap Estim Creat Clear Calc Estimated GFR POC Glucose Random Glucose Lactic Acid Calcium Magnesium Total Bilirubin AST ALT Alkaline Phosphatase Ammonia Total Creatine Kinase Troponin I High Sens B-Natriuretic Peptide Total Protein Albumin TSH 1.14 Influenza Type A (PCR) Influenza Type B (PCR) RSV RNA Qual (PCR) SARS-CoV-2 RNA (RT-PCR) 11/18/21 11/18/21 16:02 18:41 MCV MCH MCHC RDW Plt Count MPV Immature Gran % (Auto) Neut % (Auto) Lymph % (Auto) [place] % (Auto) Eos % (Auto) Baso % (Auto) Lymph # (Auto) [place] # (Auto) Eos # (Auto) Baso # (Auto) Abs Immat Gran (auto) Absolute Neuts (auto) Absolute Nucleated RBC Nucleated RBC % (auto) PT INR D-Dimer High Sensitivty O2 Saturation 89.0 ABG pH at Pt Temp 7.29 L ABG pCO2 at Pt Temp 93 H* ABG pO2 at Pt Temp 67 L ABG HCO3 45 H ABG Base Excess (Actual) 14.2 VBG pH 7.24 L VBG pCO2 106 VBG pO2 43 VBG HCO3 46 H VBG O2 Saturation 61.0 VBG Base Excess 13.8 Anion Gap Estim Creat Clear Calc Estimated GFR POC Glucose Random Glucose Lactic Acid Calcium Magnesium Total Bilirubin AST ALT Alkaline Phosphatase Ammonia Total Creatine Kinase Troponin I High Sens B-Natriuretic Peptide Total Protein Albumin TSH Influenza Type A (PCR) Influenza Type B (PCR) RSV RNA Qual (PCR) SARS-CoV-2 RNA (RT-PCR) Imaging Radiologist's Impressions: Impressions Cervical Spine CT 11/18/21 11:51 IMPRESSION: No acute intracranial pathology. No fracture dislocation cervical spine. Head CT 11/18/21 11:51 IMPRESSION: No acute intracranial pathology. No fracture dislocation cervical spine. Chest X-Ray 11/18/21 12:44 IMPRESSION: Progression of parenchymal disease which may be on the basis of acute on chronic disease as above. Consider atypical infection. Assessment and Plan (1) Syncope: Status: Acute (2) Acute and chronic respiratory failure with hypercapnia: Status: Acute Continue BiPAP, monitor VBG's, oxygen sat goal 88-92. Pt to use BiPAP 4 hours during the day and 8 hours at night (at home NIV/Trilogy) as per Dr Acharya's last office note. Baseline pCO2 in the 70's per his note as well. DVT prophylaxis: boots and heparin Pt's vbg normalized (7.33/78/76/41/94/12.5) and her mental status improved greatly/to baseline by the time she was brought from the ED to the ICU. We needed a bed due to lack of nursing staff so we felt it was appropriate to move her to [facility] for further monitoring as she is on NIV at home. Critical Care Time Critical Care Time (minutes): 60
--- NOTE | 2021-11-18 20:37 | PHA.MEDREC ---
MED REC COMPLETE, NO ISSUES Pharmacy Consult ? Medication Reconciliation Pharmacy has completed the medication reconciliation.
[2021-11-18 21:48] LABS: Venous Blood Gas Refer to POC result
[2021-11-18 21:48] LABS: VBG Base Excess 12.5 mmol/L; VBG HCO3 41 mmol/L (22-26); VBG pCO2 78 mmHg; VBG pH 7.33 (7.32-7.43); VBG pO2 76 mmHg
[2021-11-18] MEDS: acetaZOLAMIDE sodium 500 MG VIAL IVPUSH (22:44)
[2021-11-18] MEDS: Heparin Sodium,Porcine 5,000 UNIT/ML VIAL 5000 UNIT SUBCUT (22:44)
[2021-11-18] MEDS: methylPREDNISolone Sod Succ 125 MG/2 ML VIAL 60 MG IVPUSH (22:44)
--- NOTE | 2021-11-18 22:46 | PC.NURSE ---
This RN contacted provider overseeing care for this PT to request IV potassium opposed to PO as the PT is on bipap.
--- NOTE | 2021-11-18 23:44 | PC.NURSE ---
Provider made decision to hold PO potassium at this time due to risk for aspiration with Bipap.
[2021-11-19] VITALS (13 sets, daily range): BP systolic 112–134; BP diastolic 56–71; PULSE 72–110; RESP 15–22; TEMP 36.1–36.7; O2SAT 89–95; BMI 29.8
--- NOTE | 2021-11-19 00:23 | PC.NURSE ---
This RN called ICU to give report. Report received by RN. This RN called RT to help transport the PT who is on Bipap. RT informed this nurse that they were backed up at this time but would be down to ED as soon as possible.
--- NOTE | 2021-11-19 03:04 | PC.NURSE ---
Admitted to ICU room 259 at approx 0040 for acute on chronic resp failure - needed bipap. Tolerting bipap, no distress. Last VBG's improved. Now back to chronic bipap settings - order to transfer to TELE floor. Nurse to nurse given to [place]. Patient transferred at approx 0230.
[2021-11-19 05:40] LABS: MANUAL DIFF FLAG NO
[2021-11-19 05:44] LABS: Basophils Percent Auto 0.3 % (0-2); Hematocrit 33.9 % (37.0-47.0); Hemoglobin 9.9 g/dl (12.0-16.0); Imm Gran Abs Auto 0.03 X10*3/uL (0.00-0.03); Imm Gran Pct Auto 0.9 % (0.0-0.4); Lymphocytes Absolute Auto 0.2 X10*3/uL (1.2-4.9); Lymphocytes Percent Auto 7.2 % (20-40); Mean Corpuscular HGB Conc 29.2 g/dl (31.0-35.0); Mean Corpuscular Hemoglobin 28.4 pg (27.0-33.0); Mean Corpuscular Volume 97.1 fL (80.0-98.0); Mean Platelet Volume 8.4 fL (9.4-12.3); Monocytes Absolute Auto 0.1 X10*3/uL (0.1-1.2); Monocytes Percent Auto 3.9 % (2-11); Neutrophils Absolute Auto 2.9 x10*3/uL (2.0-8.3); Neutrophils Percent Auto 87.7 % (45-73); Platelet Count 414 X10*3/uL (160-400); Red Blood Count 3.49 X10*6/uL (4.20-5.50); White Blood Count 3.4 X10*3/uL (4.8-10.8)
[2021-11-19 05:44] LABS: Venous Blood Gas Refer to POC result
[2021-11-19 05:45] LABS: VBG Base Excess 18.2 mmol/L; VBG HCO3 47 mmol/L (22-26); VBG pCO2 87 mmHg; VBG pH 7.34 (7.32-7.43); VBG pO2 59 mmHg
[2021-11-19] MEDS: methylPREDNISolone Sod Succ 125 MG/2 ML VIAL 60 MG IVPUSH ×3 (05:53→21:15)
[2021-11-19 06:11] LABS: Anion Gap 8 (12-20); Blood Urea Nitrogen 14 mg/dL (9-16); Calcium 8.3 mg/dL (8.4-10.2); Carbon Dioxide 39 mmol/L (22-29); Chloride 100 mmol/L (96-108); Creatinine Clr Calc Pharmacy 65.3; Estimated Glomerular Filt Rate > 60; Glucose Random 122 mg/dL (60-115); Magnesium 2.2 mg/dL (1.6-2.6); Phosphorus 3.8 mg/dL (2.7-4.5); Potassium 4.2 mmol/L (3.3-5.1); Sodium 143 mmol/L (135-145)
[2021-11-19] MEDS: Albuterol/Iprat 2.5/0.5MG 3 ML AMPUL.NEB INHALE ×4 (07:27→20:42)
--- NOTE | 2021-11-19 08:47 | MHC.CM.PN ---
CM met with Patient at bedside and addressed IMM with her, providing her with the original and placing a copy on the chart. Patient lives alone in an apartment and uses a walker to assist with mobility. 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 Patient states that her home O2 is from [employer] and her Trilogy is from [employer]. Patient's goal is to return home and resume said services and CM has initiated and will follow for dc planning. HCP and MOLST on file aqnd PCP is DR. Erick Jade.
[2021-11-19] MEDS: Heparin Sodium,Porcine 5,000 UNIT/ML VIAL 5000 UNIT SUBCUT ×2 (09:44→21:15)
--- NOTE | 2021-11-19 13:15 | P.CONPL_ITS ---
History of Present Illness History of Present Illness Consult date: 11/19/21 Chief complaint: copd exacerbation Narrative: This is an inpatient pulmonary consultation. The patient is a 66YO F with past medical history of end stage COPD with chronic hypoxic respiratory failure on 5L NC and 4hrs during the day & 8hrs QHS NIV (via [facility]) on diamox, hx tracheostomy s/p decannulation (placed 04/22/17), obesity, bipolar depression, limb swelling and eczema presents to the ED from assisted living apartment via EMS. 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 Upon arrival to the ED, she was obtunded, afebrile and hemodynamically stable. Gasses showed pt was hypercarbic; 7.26/110/47/50/68, anion gap 11; other labs unremarkable notably ammonia 34, trop 9.9, cpk 38, bnp 19, d dimer slightly elevated at 277. Head and neck CT negative for acute findings. CXR Progression of parenchymal disease which may be on the basis of acute on chronic disease as above. Consider atypical infection , UA neg for infection, Flu/RSV and Covid negative. EKG sinus tach at 117, nonspecific T wave abnormality in lateral leads. The patient was maintained on BIPAP 14/6 improving her respiratory acidosis. I did reach out to her [employer] company to switch her NIV to BIPAP ST with the same settings. Review of Systems Constitutional: Constitutional: Reports frequent falls and Denies night sweats ENT: Denies change in voice, Denies lip swelling, Denies mouth pain, Reports nasal congestion, Reports nasal discharge and Denies tongue swelling Cardiovascular: Cardiovascular: Denies chest pain and Reports dyspnea on exertion Respiratory: Respiratory: Reports cough and Reports dyspnea on exertion Gastrointestinal: Gastrointestinal: Denies abdominal pain Musculoskeletal: Musculoskeletal: Reports abnormal gait Neurologic: Reports abnormal gait, Reports confusion and Reports frequent fa lls Psychiatric: Psychiatric: Denies no additional psychiatric complaints and Reports confusion Hematologic/Lymphatic: Hematologic/Lymphatic: Denies easy bleeding and Denies lymphadenopathy Allergic/Immunologic: Allergic/Immunologic: Denies lip swelling and Denies tongue swelling [facility] Past Medical History Medical History (Updated 11/19/21 @ 13:20 by Caden Acharya MD) Acute and chronic respiratory failure with hypercapnia Acute metabolic encephalopathy Acute on chronic respiratory failure with hypoxia and hypercapnia Bipolar depression Bronchitis Chronic respiratory failure COPD (chronic obstructive pulmonary disease) COPD exacerbation COPD with exacerbation Eczema Fall ILD (interstitial lung disease) Insomnia Limb swelling Vasomotor rhinitis Functional capacity: uses cane/walker Family History Family History Other Hypertension Social History Social History Household Members: None Housing: Assisted Living Facility Housing Other:: person comes to do housework. Do you presently have visiting nurse or other home services: No Alcohol intake: unknown Patient Tobacco Use Status: Former Tobacco user Quit Date: 2018 Tobacco use type: Cigarette Years Smoked: 20+ years e-Cigarette/Vaping Use: Never Used Second Hand Smoke Exposure: No Use of substances other than those prescribed or required for medical reasons: No Have you been hit, kicked, punched, or otherwise hurt by someone within the past year? If so, by whom?: No Do you feel safe in your current relationship?: No Current Relationship Is there a partner from a previous relationship who is making you feel unsafe now?: No Are you made to feel afraid or neglected: No Spiritual Healthcare Practices: no Bahai Healthcare Practices: none Cultural Healthcare Practices: none Advance Directives: Yes Advance Directives on File: Yes Advance Directives Date on File: 02/13/21 Do you have thoughts of harming others: None Do you have a plan to hurt others: No Plan Recently lost weight without trying: No Nutrition Risks: No Nutritional Risk Patient : No : No Poor oral hygiene: No service: No Current occupational status: disabled Meds Allergies Allergy/AdvReac Type Severity Reaction Status Date / Time codeine [Codeine] Allergy Intermediate RESTLESS/RA Verified 11/04/21 10:07 SH haloperidol [Haldol] Allergy Intermediate Palpitation Verified 11/04/21 10:07 s Sulfa (Sulfonamide Allergy Intermediate HIVES Verified 11/04/21 10:07 Antibiotics) Active Medications: Current Medications Acetazolamide (Acetazolamide 250 Mg Tablet) 250 mg PO DAILY ALYSSA Albuterol Sulfate (Albuterol Sulfate 90 Mcg 8 Gm Inhaler) 2 puff INHALE QID PRN PRN Reason: Respiratory Distress Albuterol/Ipratropium (Albuterol/Iprat 2.5/0.5mg 3 Ml Ampul.Neb) 3 ml INHALE Q2H PRN PRN Reason: sob Albuterol/Ipratropium (Albuterol/Iprat 2.5/0.5mg 3 Ml Ampul.Neb) 3 ml INHALE RQ4H WHILE AWAKE [facility] Last Admin: 11/19/21 12:13 Dose: 3 ml Documented by: Aripiprazole (Aripiprazole 10 Mg Tablet) 10 mg PO DAILY [facility] Aspirin (Aspirin Enteric Coated 81 Mg Tablet.Dr) 81 mg PO DAILY [facility] Fluticasone/Vilanterol (Fluticasone/Vilanterol 200/25 Blst.W.Dev) 1 puff INHALE RDAILY [facility] Gabapentin (Gabapentin 300 Mg Capsule) 300 mg PO BEDTIME [facility] Heparin Sodium (Porcine) (Heparin Sodium,Porcine 5,000 Unit/Ml Vial) 5,000 unit SUBCUT Q12H [facility] Last Admin: 11/19/21 09:44 Dose: 5,000 unit Documented by: Ipratropium [place] (Ipratropium [place] Regan 0.06 % 15 Ml [place]) 2 spray NOSTRIL-B TID [facility] Lamotrigine (Lamotrigine 100 Mg Tablet) 300 mg PO BEDTIME [facility] Lamotrigine (Lamotrigine 100 Mg Tablet) 200 mg PO DAILY [facility] Magnesium Oxide (Magnesium Oxide 400 Mg Tablet) 400 mg PO BID [facility] Methylprednisolone Sodium Succinate (Methylprednisolone Sod Succ 125 Mg/2 Ml Vial) 60 mg IVPUSH Q8H [facility] Last Admin: 11/19/21 05:53 Dose: 60 mg Documented by: Metoprolol Succinate (Metoprolol Succinate Er 50 Mg Tab.Er.24h) 50 mg PO DAILY [facility]; Protocol Mirtazapine (Mirtazapine 15 Mg Tablet) 15 mg PO BEDTIME [facility] Montelukast Sodium (Montelukast Sodium 10 Mg Tablet) 10 mg PO BEDTIME [facility] Multivitamins/Vitamin C (Multivitamin Tablet) 1 tab PO DAILY [facility] Neomycin/Polymyxin/Hydrocortisone (Neomycin/Polymyxin/Hc Otic [place] Bottle) 2 drop EAR-BOTH QID [facility] Oxymetazoline HCl (Oxymetazoline Hcl 0.05 % Nasal 15 Ml [place]) 2 spray NOSTRIL- B QID PRN PRN Reason: Nasal Congestion Pharmacy Consult (Consult Rx Perform Med Rec) 1 each MISCELLANE ONCE PRN PRN Reason: Consult order Polyethylene Glycol (Polyethylene Glycol 3350 17 Gm Powd.Pack) 17 gm PO DAILY PRN PRN Reason: Constipation Senna (Sennosides 8.6 Mg Tablet) 8.6 mg PO BEDTIME [facility] Triamcinolone Acetonide (Triamcinolone Acet 0.1 % Cream 15 Gm Tube) 1 appl TOPICAL BID [facility] Vilazodone HCl (Vilazodone Hcl 20 Mg Tablet) 20 mg PO DAILY [facility] Vitamin D (Cholecalciferol (Vitamin D3) 25 Mcg Tablet) 50 mcg PO DAILY [facility] Home Medications Medication Instructions Recorded Confirmed Last Taken Type acetaminophen 500 mg tablet 1,000 mg PO TID PRN 02/09/21 11/18/21 Unknown History albuterol sulfate 90 mcg/actuation 2 puff INHALATION QID PRN 02/09/21 11/18/21 Unknown History aerosol inhaler (Proventil HFA) alendronate 70 mg tablet (Fosamax) 70 mg PO QWEEK 02/09/21 11/18/21 Unknown Hist ory aripiprazole 10 mg tablet (Abilify) 10 mg PO DAILY 02/09/21 11/18/21 Unknown History aspirin 81 mg tablet,delayed 81 mg PO DAILY 02/09/21 11/18/21 Unknown History release cholecalciferol (vitamin D3) 50 50 mcg PO DAILY 02/09/21 11/18/21 Unknown History mcg (2,000 unit) capsule (Vitamin D3) fluticasone furoate 200 1 inh INHALATION DAILY 02/09/21 11/18/21 Unknown History mcg-vilanterol 25 mcg/dose inhalation powder (Breo Ellipta) lamotrigine 150 mg tablet 300 mg PO BEDTIME 02/09/21 11/18/21 Unknown History lamotrigine 200 mg tablet 200 mg PO DAILY 02/09/21 11/18/21 Unknown History magnesium oxide 400 mg PO BID 02/09/21 11/18/21 Unknown History montelukast 10 mg tablet 10 mg PO BEDTIME 02/09/21 11/18/21 Unknown History multivitamin 1 tab PO DAILY 02/09/21 11/18/21 Unknown History selenium sulfide 1 % shampoo 10 ml TOPICAL 2XW 02/09/21 11/18/21 Unknown History tiotropium bromide 18 mcg capsule 1 cap INHALATION DAILY 02/09/21 11/18/21 Unknown History with inhalation device (Spiriva with HandiHaler) vilazodone 20 mg tablet (Viibryd) 20 mg PO DAILY 02/09/21 11/18/21 Unknown History mirtazapine 15 mg tablet 15 mg PO BEDTIME 09/10/21 11/18/21 Unknown History ondansetron HCl 4 mg tablet 4 mg PO Q8H PRN 09/10/21 11/18/21 Unknown History (Zofran) sennosides 8.6 mg tablet (Senokot) 8.6 mg PO BEDTIME 09/10/21 11/18/21 Unknown History crisaborole 2 % topical ointment 1 appl TOPICAL BID 10/05/21 11/18/21 Unknown History gabapentin 300 mg capsule 300 mg PO BEDTIME 10/05/21 11/18/21 Unknown History [id number]-[id number]-[id number] 3.3 2 drp OTIC (EARS) QID 10/05/21 11/18/21 Unknown History mg-3 mg-10 mg-0.5 mg/mL ear drops,susp (Cortisporin-TC) nicotine 10 mg inhalation 1 inh INHALATION Q2H PRN 10/05/21 11/18/21 Unknown History cartridge (Nicotrol) oxymetazoline 0.05 % nasal spray 2 spray INTRANASAL QID PRN 10/05/21 11/18/21 Unknown History polyethylene glycol 3350 17 17 g PO DAILY PRN 10/05/21 11/18/21 Unknown History gram/dose oral powder acetazolamide 250 mg tablet 250 mg PO DAILY 11/18/21 11/18/21 Unknown History betamethasone valerate 0.1 % 1 appl TOPICAL BID 11/18/21 11/18/21 Unknown History topical cream metoprolol succinate 50 mg 50 mg PO DAILY 11/18/21 11/18/21 Unknown History tablet,extended release 24 hr prednisone 10 mg tablet 10 mg PO Q2D 11/18/21 11/18/21 Unknown History Physical Exam Vital Signs: Vital Signs: Last Vital Signs Temp 97 F 11/19/21 10:57 Pulse 88 11/19/21 12:18 Resp 18 11/19/21 12:18 BP 132/67 11/19/21 10:57 Pulse Ox 92 11/19/21 10:57 Oxygen Flow Rate 3 11/18/21 11:16 BMI result Body Mass Index 30.0 Const: General: confusion Orientation/consciousness: confusion HENMT: General nose exam: Abnormal external nose present and Nasal discharge present Chest: Chest palpation & inspection: normal inspection of the chest Resp: Auscultation: diminished lung sounds Cardio: Rate: regular rate Rhythm: regular rhythm Heart sounds: S1 normal heart sound present and S2 normal heart sound present GI: Palpation (GI): Soft to palpation and nontender Auscultation: normal bowel sounds Skin: General skin exam: rashes and/or lesions noted Neuro: General: confusion Results Laboratory Findings CBC and BMP: 11/19/21 05:34 11/19/21 05:34 ABG, PT/INR, D-dimer: PT/INR, D-dimer PT 12.9 SEC (9.9-13.0) 11/18/21 12:30 INR 1.1 (0.9-1.1) 11/18/21 12:30 Abnormal lab findings: Abnormal Labs 11/18/21 11/18/21 11/18/21 11:11 12:30 12:30 WBC RBC 4.18 L Hgb Hct MCHC 29.8 L Plt Count 476 H MPV 8.5 L Immature Gran % (Auto) 0.9 H Neut % (Auto) 88.6 H Lymph % (Auto) 3.3 L Lymph # (Auto) 0.3 L Abs Immat Gran (auto) 0.08 H ABG pH at Pt Temp ABG pCO2 at Pt Temp ABG pO2 at Pt Temp ABG HCO3 VBG pH VBG HCO3 Carbon Dioxide 41 H* Anion Gap 11 L POC Glucose 144 H Random Glucose 127 H Calcium 11/18/21 11/18/21 11/18/21 12:31 16:02 18:41 WBC RBC Hgb Hct MCHC Plt Count MPV Immature Gran % (Auto) Neut % (Auto) Lymph % (Auto) Lymph # (Auto) Abs Immat Gran (auto) ABG pH at Pt Temp 7.29 L ABG pCO2 at Pt Temp 93 H* ABG pO2 at Pt Temp 67 L ABG HCO3 45 H VBG pH 7.26 L 7.24 L VBG HCO3 50 H 46 H Carbon Dioxide Anion Gap POC Glucose Random Glucose Calcium 11/18/21 11/19/21 11/19/21 21:42 05:34 05:34 WBC 3.4 L RBC 3.49 L Hgb 9.9 L Hct 33.9 L MCHC 29.2 L Plt Count 414 H MPV 8.4 L Immature Gran % (Auto) 0.9 H Neut % (Auto) 87.7 H Lymph % (Auto) 7.2 L Lymph # (Auto) 0.2 L Abs Immat Gran (auto) ABG pH at Pt Temp ABG pCO2 at Pt Temp ABG pO2 at Pt Temp ABG HCO3 VBG pH VBG HCO3 41 H Carbon Dioxide 39 H Anion Gap 8 L POC Glucose Random Glucose 122 H Calcium 8.3 L D 11/19/21 05:37 WBC RBC Hgb Hct MCHC Plt Count MPV Immature Gran % (Auto) Neut % (Auto) Lymph % (Auto) Lymph # (Auto) Abs Immat Gran (auto) ABG pH at Pt Temp ABG pCO2 at Pt Temp ABG pO2 at Pt Temp ABG HCO3 VBG pH VBG HCO3 47 H Carbon Dioxide Anion Gap POC Glucose Random Glucose Calcium Diagnostic Findings Chest x-ray: image reviewed Additional studies: [address] [address] XRay Report Signed Patient: Lluvia Cartagena MR#: [id number] : 1955 Acct:[id number] Age/Sex: 66 / F ADM Date: 11/18/21 Loc: .ED Attending Dr: Ordering Physician: Robert Leal MD Date of Service: 11/18/21 Procedure(s): XR chest 1V Accession Number(s): [id number] cc: Robert Leal MD~ EXAMINATION: XR CHEST CLINICAL INFORMATION: Hypoxia COMPARISON: 10/21/2021 TECHNIQUE: Portable 12:40 PM view of the chest was obtained. FINDINGS: Overall worsening aeration bilaterally with mixture of interstitial and early alveolar consolidations bilaterally consistent with pneumonia. Heart size normal. No pleural disease or other findings The interim. XR/XR chest 1V IMPRESSION: Progression of parenchymal disease which may be on the basis of acute on chronic disease as above. Consider atypical infection. Assessment and Plan (1) Acute and chronic respiratory failure with hypercapnia: Status: Acute (2) COPD (chronic obstructive pulmonary disease): Qualifiers: COPD type: unspecified COPD Qualified Code(s): J44.9 - Chronic obstructive pulmonary disease, unspecified Status: Acute (3) ILD (interstitial lung disease): Status: Acute Continue BIPAP 11/05, will change home vent to same settings Oxygen to keep pox >90% ok to place on PO prednisone Complete 8 day course of antibiotics Procedures Date of Service Date of Service: 11/19/21
--- NOTE | 2021-11-19 14:31 | P.PNIM_ITS ---
Subjective Subjective Date of Service: 11/19/21 Interval History: seen and examined this morning downgraded from the ICU overnight awake and alert this morning denies SOB, cough Review of Systems Review of Systems: Yes all other systems are reviewed and are negative Constitutional Constitutional: Denies chills and Denies fever(s) Cardiovascular Cardiovascular: Denies chest pain Respiratory Respiratory: Denies cough Gastrointestinal Gastrointestinal: Denies abdominal pain Physical Exam Vital Signs: Vital Signs: Last Vital Signs Temp 97 F 11/19/21 10:57 Pulse 88 11/19/21 12:18 Resp 18 11/19/21 12:18 BP 132/67 11/19/21 10:57 Pulse Ox 92 11/19/21 10:57 Oxygen Flow Rate 3 11/18/21 11:16 BMI result Body Mass Index 30.0 Const: General: cooperative, comfortable, no acute distress, alert and awake Nutritional Appearance: well nourished HENMT: Head: Yes normocephalic and Yes atraumatic Eyes: Sclerae: sclerae normal Resp: Other: diminished breath sounds b/l Effort & Inspection: normal respiratory effort and no respiratory distress Cardio: Rate: regular rate Rhythm: regular rhythm GI: Palpation (GI): Soft to palpation and nontender Neuro: Cranial nerves: Yes CN's II-XII intact bilaterally and Yes Bilaterally intact EOM present Objective Data Active Medications Acetazolamide (Acetazolamide 250 Mg Tablet) 250 mg PO DAILY [facility] Albuterol Sulfate (Albuterol Sulfate 90 Mcg 8 Gm Inhaler) 2 puff INHALE QID PRN PRN Reason: Respiratory Distress Albuterol/Ipratropium (Albuterol/Iprat 2.5/0.5mg 3 Ml Ampul.Neb) 3 ml INHALE Q2H PRN PRN Reason: sob Albuterol/Ipratropium (Albuterol/Iprat 2.5/0.5mg 3 Ml Ampul.Neb) 3 ml INHALE RQ4H WHILE AWAKE [facility] Last Admin: 11/19/21 12:13 Dose: 3 ml Documented by: NASRA Aripiprazole (Aripiprazole 10 Mg Tablet) 10 mg PO DAILY [facility] Aspirin (Aspirin Enteric Coated 81 Mg Tablet.Dr) 81 mg PO DAILY [facility] Fluticasone/Vilanterol (Fluticasone/Vilanterol 200/25 Blst.W.Dev) 1 puff INHALE RDAILY [facility] Gabapentin (Gabapentin 300 Mg Capsule) 300 mg PO BEDTIME [facility] Heparin Sodium (Porcine) (Heparin Sodium,Porcine 5,000 Unit/Ml Vial) 5,000 unit SUBCUT Q12H [facility] Last Admin: 11/19/21 09:44 Dose: 5,000 unit Documented by: WU Ipratropium [place] (Ipratropium [place] Regan 0.06 % 15 Ml [place]) 2 spray NOSTRIL-B TID [facility] Lamotrigine (Lamotrigine 100 Mg Tablet) 300 mg PO BEDTIME [facility] Lamotrigine (Lamotrigine 100 Mg Tablet) 200 mg PO DAILY [facility] Magnesium Oxide (Magnesium Oxide 400 Mg Tablet) 400 mg PO BID [facility] Methylprednisolone Sodium Succinate (Methylprednisolone Sod Succ 125 Mg/2 Ml Vi al) 60 mg IVPUSH Q8H [facility] Last Admin: 11/19/21 05:53 Dose: 60 mg Documented by: JARON Metoprolol Succinate (Metoprolol Succinate Er 50 Mg Tab.Er.24h) 50 mg PO DAILY [facility]; Protocol Mirtazapine (Mirtazapine 15 Mg Tablet) 15 mg PO BEDTIME [facility] Montelukast Sodium (Montelukast Sodium 10 Mg Tablet) 10 mg PO BEDTIME [facility] Multivitamins/Vitamin C (Multivitamin Tablet) 1 tab PO DAILY [facility] Neomycin/Polymyxin/Hydrocortisone (Neomycin/Polymyxin/Hc Otic [place] Bottle) 2 drop EAR-BOTH QID [facility] Oxymetazoline HCl (Oxymetazoline Hcl 0.05 % Nasal 15 Ml [place]) 2 spray NOSTRIL- B QID PRN PRN Reason: Nasal Congestion Pharmacy Consult (Consult Rx Perform Med Rec) 1 each MISCELLANE ONCE PRN PRN Reason: Consult order Polyethylene Glycol (Polyethylene Glycol 3350 17 Gm Powd.Pack) 17 gm PO DAILY PRN PRN Reason: Constipation Senna (Sennosides 8.6 Mg Tablet) 8.6 mg PO BEDTIME [facility] Triamcinolone Acetonide (Triamcinolone Acet 0.1 % Cream 15 Gm Tube) 1 appl TOPICAL BID [facility] Vilazodone HCl (Vilazodone Hcl 20 Mg Tablet) 20 mg PO DAILY [facility] Vitamin D (Cholecalciferol (Vitamin D3) 25 Mcg Tablet) 50 mcg PO DAILY [facility] Labs CBC & Chem 7: 11/19/21 05:34 11/19/21 05:34 Labs: Laboratory Results - last 24 hr 11/18/21 11/18/21 11/18/21 16:02 18:41 21:42 MCV MCH MCHC RDW Plt Count MPV Immature Gran % (Auto) Neut % (Auto) Lymph % (Auto) [place] % (Auto) Eos % (Auto) Baso % (Auto) Lymph # (Auto) [place] # (Auto) Eos # (Auto) Baso # (Auto) Abs Immat Gran (auto) Absolute Neuts (auto) Absolute Nucleated RBC Nucleated RBC % (auto) O2 Saturation 89.0 ABG pH at Pt Temp 7.29 L ABG pCO2 at Pt Temp 93 H* ABG pO2 at Pt Temp 67 L ABG HCO3 45 H ABG Base Excess (Actual) 14.2 VBG pH 7.24 L 7.33 VBG pCO2 106 78 VBG pO2 43 76 VBG HCO3 46 H 41 H VBG O2 Saturation 61.0 94.0 VBG Base Excess 13.8 12.5 Anion Gap Estim Creat Clear Calc Estimated GFR Random Glucose Calcium Phosphorus Magnesium 11/19/21 11/19/21 11/19/21 05:34 05:34 05:37 MCV 97.1 MCH 28.4 MCHC 29.2 L RDW 14.0 Plt Count 414 H MPV 8.4 L Immature Gran % (Auto) 0.9 H Neut % (Auto) 87.7 H Lymph % (Auto) 7.2 L [place] % (Auto) 3.9 Eos % (Auto) 0.0 Baso % (Auto) 0.3 Lymph # (Auto) 0.2 L [place] # (Auto) 0.1 Eos # (Auto) 0.0 Baso # (Auto) 0.0 Abs Immat Gran (auto) 0.03 Absolute Neuts (auto) 2.9 Absolute Nucleated RBC 0.000 Nucleated RBC % (auto) 0.0 O2 Saturation ABG pH at Pt Temp ABG pCO2 at Pt Temp ABG pO2 at Pt Temp ABG HCO3 ABG Base Excess (Actual) VBG pH 7.34 VBG pCO2 87 VBG pO2 59 VBG HCO3 47 H VBG O2 Saturation 87.0 VBG Base Excess 18.2 Anion Gap 8 L Estim Creat Clear Calc 65.3 Estimated GFR > 60 Random Glucose 122 H Calcium 8.3 L D Phosphorus 3.8 Magnesium 2.2 Assessment and Plan (1) ILD (interstitial lung disease): Status: Acute (2) Acute and chronic respiratory failure with hypercapnia: Status: Acute (3) COPD (chronic obstructive pulmonary disease): Status: Acute (4) CO2 retention: Status: Acute Assessment and Plan: This is a 66 year old female with past medical history of end stage COPD with chronic hypoxic respiratory failure on 5L NC and 4hrs during the day & 8hrs QHS NIV (via [facility]) on diamox, hx tracheostomy s/p decannulation (placed 04/22/17), obesity, bipolar depression, limb swelling and eczema presents to the ED from assisted living apartment via EMS after being found down with her O2 off and unresponsive found to have hypercarbic respiratory failure downgraded from the ICU overnight acute on chronic hypercarbic respiratory failure improving continue baseline supplemental o2 with goal o2 of 88-92, bipap (4 hours during the day and overnight) continue diamox mood continue home meds HTN continue metoprolol dvt ppx - heparin attending - dr. sutherland Quality Stroke Does the patient have a stroke diagnosis?: No VTE Prior VTE?: No VTE Risk Level:: Medical - low VTE Device Contraindication: N/A - Device Ordered VTE Drug Contraindication: N/A - Med Ordered
[2021-11-19] MEDS: NeoMYCIN/Polymyxin/HC Otic Sol BOTTLE 2 DROP EAR-BOTH ×3 (14:40→21:17)
[2021-11-19] MEDS: Sennosides 8.6 MG TABLET PO (21:15)
[2021-11-19] MEDS: lamoTRIgine 100 MG TABLET 300 MG PO (21:15)
[2021-11-19] MEDS: Mirtazapine 15 MG TABLET PO (21:15)
[2021-11-19] MEDS: Gabapentin 300 MG CAPSULE PO (21:15)
[2021-11-19] MEDS: Magnesium Oxide 400 MG TABLET PO (21:16)
[2021-11-19] MEDS: Montelukast Sodium 10 MG TABLET PO (21:16)
[2021-11-20] VITALS (12 sets, daily range): BP systolic 104–132; BP diastolic 52–72; PULSE 63–89; RESP 18–22; TEMP 36.3–37.1; O2SAT 88–98; BMI 30.6
[2021-11-20] MEDS: methylPREDNISolone Sod Succ 125 MG/2 ML VIAL 60 MG IVPUSH (05:43)
[2021-11-20 06:32] LABS: MANUAL DIFF FLAG NO
[2021-11-20 06:42] LABS: Basophils Percent Auto 0.2 % (0-2); Eosinophils Percent Auto 0.2 % (0-4); Hematocrit 34.6 % (37.0-47.0); Hemoglobin 10.2 g/dl (12.0-16.0); Imm Gran Abs Auto 0.05 X10*3/uL (0.00-0.03); Imm Gran Pct Auto 0.8 % (0.0-0.4); Lymphocytes Absolute Auto 0.4 X10*3/uL (1.2-4.9); Lymphocytes Percent Auto 5.6 % (20-40); Mean Corpuscular HGB Conc 29.5 g/dl (31.0-35.0); Mean Corpuscular Hemoglobin 28.4 pg (27.0-33.0); Mean Corpuscular Volume 96.4 fL (80.0-98.0); Mean Platelet Volume 8.7 fL (9.4-12.3); Monocytes Absolute Auto 0.4 X10*3/uL (0.1-1.2); Monocytes Percent Auto 5.9 % (2-11); Neutrophils Absolute Auto 5.7 x10*3/uL (2.0-8.3); Neutrophils Percent Auto 87.3 % (45-73); Platelet Count 482 X10*3/uL (160-400); Red Blood Count 3.59 X10*6/uL (4.20-5.50); Red Cell Distribution Width 14.1 % (11.0-16.0); White Blood Count 6.5 X10*3/uL (4.8-10.8)
[2021-11-20 06:47] LABS: Venous Blood Gas Refer to POC result
[2021-11-20 06:48] LABS: VBG Base Excess 18.2 mmol/L; VBG HCO3 47 mmol/L (22-26); VBG pCO2 78 mmHg; VBG pH 7.38 (7.32-7.43); VBG pO2 37 mmHg
[2021-11-20 06:51] LABS: Prolactin 1.8 ng/mL
[2021-11-20] MEDS: Albuterol/Iprat 2.5/0.5MG 3 ML AMPUL.NEB INHALE ×4 (07:31→19:37)
[2021-11-20 07:36] LABS: Anion Gap 8 (12-20); Blood Urea Nitrogen 21 mg/dL (9-16); Calcium 8.6 mg/dL (8.4-10.2); Carbon Dioxide 41 mmol/L (22-29); Chloride 100 mmol/L (96-108); Creatinine Clr Calc Pharmacy 59.2; Estimated Glomerular Filt Rate > 60; Glucose Random 128 mg/dL (60-115); Magnesium 2.6 mg/dL (1.6-2.6); Phosphorus 2.5 mg/dL (2.7-4.5); Potassium 4.9 mmol/L (3.3-5.1); Sodium 144 mmol/L (135-145)
[2021-11-20] MEDS: ARIPiprazole 10 MG TABLET PO (08:14)
[2021-11-20] MEDS: acetaZOLAMIDE 250 MG TABLET PO (08:14)
[2021-11-20] MEDS: Magnesium Oxide 400 MG TABLET PO ×2 (08:14→20:23)
[2021-11-20] MEDS: Multivitamin TABLET 1 TAB PO (08:14)
[2021-11-20] MEDS: Aspirin Enteric Coated 81 MG TABLET.DR PO (08:14)
[2021-11-20] MEDS: Vilazodone HCL 20 MG TABLET PO (08:14)
[2021-11-20] MEDS: lamoTRIgine 100 MG TABLET 200 MG PO (08:14)
[2021-11-20] MEDS: Metoprolol Succinate ER 50 MG TAB.ER.24H PO (08:16)
[2021-11-20] MEDS: Cholecalciferol (Vitamin D3) 25 MCG TABLET 50 MCG PO (08:17)
[2021-11-20] MEDS: Triamcinolone Acet 0.1 % Cream 15 GM TUBE 1 APPL TOPICAL ×2 (08:21→20:23)
[2021-11-20] MEDS: Ipratropium Bromide Nas 0.06 % 15 ML SPRAY 2 SPRAY NOSTRIL-B ×3 (08:21→20:23)
[2021-11-20] MEDS: NeoMYCIN/Polymyxin/HC Otic Sol BOTTLE 2 DROP EAR-BOTH ×3 (08:21→20:23)
[2021-11-20] MEDS: Heparin Sodium,Porcine 5,000 UNIT/ML VIAL 5000 UNIT SUBCUT ×2 (09:39→20:23)
--- NOTE | 2021-11-20 11:52 | P.DS_ITS ---
DS: Providers Provider Date of Service: 11/20/21 Date of admission: 11/18/21 20:27 Primary care physician: Erick Jade MD DS: Diagnosis Discharge Diagnosis (1) ILD (interstitial lung disease): Status: Acute (2) Acute and chronic respiratory failure with hypercapnia: Status: Acute (3) COPD (chronic obstructive pulmonary disease): Status: Acute (4) CO2 retention: Status: Acute DS: Summary Hospital Course Hospital Course: 66 year old female with past medical history of end stage COPD with chronic hypoxic respiratory failure on 5L NC and 4hrs during the day & 8hrs QHS NIV (via [facility]) on diamox, hx tracheostomy s/p decannulation (placed 04/22/17), obesity, bipolar depression, limb swelling and eczema presents to the ED from assisted living apartment via EMS after being found down with her O2 off and unresponsive found to have hypercarbic respiratory failure and was admitted through the ICU where she required BiPAP and has improved. Syncope due to CO2 narcosis, resloved acute on chronic hypercarbic respiratory failure--treated with BiPAP and has improved. She is to continue baseline supplemental o2 with goal o2 of 88-92, bipap (4 hours during the day and overnight) with new settings of continue diamox mood continue home meds HTN continue metoprolol Time Spent with Patient Time attestation: Total time spent providing and/or coordinating discharge services: Discharge coordination time: Greater than 30 minutes Quality: Stroke Does the patient have a stroke diagnosis?: No Physical Exam Verdana 4l Vital Signs: Verdana 4d Verdana 4d Vital Signs: Verdana 4d Verdana 4Bd Last Vital Signs Verdana 4d Escrow Assistant New 4d Escrow Assistant New 4d Temp 97.9 F 11/20/21 11:46 Escrow Assistant New 4d Pulse 65 11/20/21 11:46 Escrow Assistant NewNew 4d Resp 18 11/20/21 11:46 BP 132/61 11/20/21 11:46 Pulse Ox 97 11/20/21 11:46 Oxygen Flow Rate 3 11/18/21 11:16 BMI result Body Mass Index 30.6 Const: Other: General: AO X 3, no acute distress Resp: CTA bilateral CVS: S1,S2,RRR GI: +BS, NT, no distention Skin: No rash Neuro: motor grossly intact Psych: appropriate affect DS: Data Data Completed and Pending Completed studies during hospitalization [Text1]: Procedures Assistance with Respiratory Ventilation, Less than 24 Consecutive Hours, Continuous Positive Airway Pressure (10/05/21) Labs on day of discharge: Laboratory Results - last 24 hr 11/18/21 11/20/21 11/20/21 12:30 06:24 06:24 WBC 6.5 RBC 3.59 L Hgb 10.2 L Hct 34.6 L MCV 96.4 MCH 28.4 MCHC 29.5 L RDW 14.1 Plt Count 482 H MPV 8.7 L Immature Gran % (Auto) 0.8 H Neut % (Auto) 87.3 H Lymph % (Auto) 5.6 L [place] % (Auto) 5.9 Eos % (Auto) 0.2 Baso % (Auto) 0.2 Lymph # (Auto) 0.4 L [place] # (Auto) 0.4 Eos # (Auto) 0.0 Baso # (Auto) 0.0 Abs Immat Gran (auto) 0.05 H Absolute Neuts (auto) 5.7 Absolute Nucleated RBC 0.000 Nucleated RBC % (auto) 0.0 VBG pH VBG pCO2 VBG pO2 VBG HCO3 VBG O2 Saturation VBG Base Excess Sodium 144 Potassium 4.9 Chloride 100 Carbon Dioxide 41 H* Anion Gap 8 L BUN 21 H Creatinine 0.88 Estim Creat Clear Calc 59.2 Estimated GFR > 60 Random Glucose 128 H Calcium 8.6 Phosphorus 2.5 L Magnesium 2.6 Prolactin 1.8 L 11/20/21 06:31 WBC RBC Hgb Hct MCV MCH MCHC RDW Plt Count MPV Immature Gran % (Auto) Neut % (Auto) Lymph % (Auto) [place] % (Auto) Eos % (Auto) Baso % (Auto) Lymph # (Auto) [place] # (Auto) Eos # (Auto) Baso # (Auto) Abs Immat Gran (auto) Absolute Neuts (auto) Absolute Nucleated RBC Nucleated RBC % (auto) VBG pH 7.38 VBG pCO2 78 VBG pO2 37 VBG HCO3 47 H VBG O2 Saturation 57.0 VBG Base Excess 18.2 Sodium Potassium Chloride Carbon Dioxide Anion Gap BUN Creatinine Estim Creat Clear Calc Estimated GFR Random Glucose Calcium Phosphorus Magnesium Prolactin Preliminary micro results at discharge 11/18/21 12:30 Blood Culture - Preliminary Blood - Venous No growth after 24 hours. 11/18/21 12:30 Blood Culture - Preliminary Blood - Venous No growth after 24 hours. Discharge Plan Discharge Anticipated Discharge Date/Time: 11/20/21 11:47 Patient Disposition: Home Health Service Discharge Diagnosis: Syncope, CO2 narcosis Referrals: Erick Jade MD [Primary Care Provider] - 1 Week Discharge Medications: New prednisone 10 mg tablet See Taper mg PO DAILY Qty: 20 RF: 0 Continued aripiprazole [Abilify] 10 mg Tablet 10 mg PO DAILY RF: 0 acetaminophen 500 mg Tablet 1,000 mg PO TID PRN (Reason: Headache) RF: 0 aspirin 81 mg Tablet,Delayed Release (Dr/Ec) 81 mg PO DAILY RF: 0 Breo Ellipta 200-25 mcg/dose Blister With Device 1 inh INHALATION DAILY RF: 0 alendronate [Fosamax] 70 mg Tablet 70 mg PO QWEEK RF: 0 lamotrigine 150 mg Tablet 300 mg PO BEDTIME RF: 0 lamotrigine 200 mg Tablet 200 mg PO DAILY RF: 0 magnesium oxide 400 mg magnesium Tablet 400 mg PO BID RF: 0 montelukast 10 mg Tablet 10 mg PO BEDTIME RF: 0 multivitamin Tablet 1 tab PO DAILY RF: 0 albuterol sulfate [Proventil HFA] 90 mcg/actuation Hfa Aerosol Inhaler 2 puff INHALATION QID PRN (Reason: Respiratory Distress) RF: 0 selenium sulfide 1 % Shampoo 10 ml TOPICAL 2XW RF: 0 Viibryd 20 mg Tablet 20 mg PO DAILY RF: 0 cholecalciferol (vitamin D3) [Vitamin D3] 50 mcg (2,000 unit) Capsule 50 mcg PO DAILY RF: 0 Spiriva with HandiHaler 18 mcg Capsule, W/Inhalation Device 1 cap INHALATION DAILY RF: 0 mirtazapine 15 mg tablet 15 mg PO BEDTIME RF: 0 Cortisporin-TC 3.3-3-10-0.5 mg/mL Drops,Suspension 2 drp OTIC (EARS) QID RF: 0 Nicotrol 10 mg Cartridge 1 inh INHALATION Q2H PRN (Reason: Nicotine Cravings) RF: 0 gabapentin 300 mg Capsule 300 mg PO BEDTIME RF: 0 polyethylene glycol 3350 17 gram/dose Powder 17 g PO DAILY PRN (Reason: Constipation) RF: 0 oxymetazoline 0.05 % [place],Non-Aerosol 2 spray INTRANASAL QID PRN (Reason: Nasal Congestion) RF: 0 crisaborole 2 % Ointment 1 appl TOPICAL BID RF: 0 acetazolamide 250 mg tablet 250 mg PO DAILY RF: 0 betamethasone valerate 0.1 % Cream 1 appl TOPICAL BID RF: 0 metoprolol succinate 50 mg Tablet Extended Release 24 Hr 50 mg PO DAILY RF: 0 prednisone 10 mg Tablet 10 mg PO Q2D RF: 0 theophylline 300 mg tablet extended release 12 hr 300 mg PO Q12H 30 Days Qty: 60 RF: 5 ipratropium bromide 42 mcg (0.06 %) spray,non-aerosol 2 spray intranasal TID 30 Days Qty: 15 RF: 3 melatonin [Melatin] 3 mg tablet 6 mg PO BEDTIME PRN (Reason: sleep) 30 Days Qty: 60 RF: 4 ondansetron HCl [Zofran] 4 mg tablet 4 mg PO Q8H PRN (Reason: Nausea) RF: 0 sennosides [Senokot] 8.6 mg tablet 8.6 mg PO BEDTIME RF: 0 Discharge Orders: Discharge Order (Routine); Ordered 11/20/21 Ordered By: Román Diaz Diet: advance to usual diet Activity on Discharge: As tolerated Stand Alone Forms: Patient Portal Discharge page Care Plan Goals: prevent rehospitalization and stabilize chronic respiratory failure Health Concerns: chronic respiratory failure, COPD Plan of Treatment: To continue use of home NIV ventilator with new seting of 11/05 Assessment: as above above
--- NOTE | 2021-11-20 12:07 | P.PNPL_ITS ---
Subjective Subjective Date of Service: 11/20/21 Interval history: The patient was seen on exam. She had a good night. Last night she was very tired and sleepy if she felt like she could not wake up. This is the feeling that she gets when she falls. It appears that she does have symptoms on may be consistent with hypersomnia. She has been evaluated in the past for the falls in her CO2 is not always elevated suggesting that the D hypercarbia is not necessarily the only factor resulting in her falling episodes. A suspected that she has component of hypersomnia and therefore will start prescribing her Provigil with the help of improving her sleep-wake cycle. In the meantime the BiPAP is doing a very good job stabilizing her acidosis. Objective Data Labs CBC & Chem 7: 11/20/21 06:24 11/20/21 06:24 Labs: Laboratory Results - last 24 hr 11/18/21 11/20/21 11/20/21 12:30 06:24 06:24 WBC 6.5 RBC 3.59 L Hgb 10.2 L Hct 34.6 L MCV 96.4 MCH 28.4 MCHC 29.5 L RDW 14.1 Plt Count 482 H MPV 8.7 L Immature Gran % (Auto) 0.8 H Neut % (Auto) 87.3 H Lymph % (Auto) 5.6 L [place] % (Auto) 5.9 Eos % (Auto) 0.2 Baso % (Auto) 0.2 Lymph # (Auto) 0.4 L [place] # (Auto) 0.4 Eos # (Auto) 0.0 Baso # (Auto) 0.0 Abs Immat Gran (auto) 0.05 H Absolute Neuts (auto) 5.7 Absolute Nucleated RBC 0.000 Nucleated RBC % (auto) 0.0 VBG pH VBG pCO2 VBG pO2 VBG HCO3 VBG O2 Saturation VBG Base Excess Sodium 144 Potassium 4.9 Chloride 100 Carbon Dioxide 41 H* Anion Gap 8 L BUN 21 H Creatinine 0.88 Estim Creat Clear Calc 59.2 Estimated GFR > 60 Random Glucose 128 H Calcium 8.6 Phosphorus 2.5 L Magnesium 2.6 Prolactin 1.8 L 11/20/21 06:31 WBC RBC Hgb Hct MCV MCH MCHC RDW Plt Count MPV Immature Gran % (Auto) Neut % (Auto) Lymph % (Auto) [place] % (Auto) Eos % (Auto) Baso % (Auto) Lymph # (Auto) [place] # (Auto) Eos # (Auto) Baso # (Auto) Abs Immat Gran (auto) Absolute Neuts (auto) Absolute Nucleated RBC Nucleated RBC % (auto) VBG pH 7.38 VBG pCO2 78 VBG pO2 37 VBG HCO3 47 H VBG O2 Saturation 57.0 VBG Base Excess 18.2 Sodium Potassium Chloride Carbon Dioxide Anion Gap BUN Creatinine Estim Creat Clear Calc Estimated GFR Random Glucose Calcium Phosphorus Magnesium Prolactin Microbiology Microbiology Results: Microbiology 11/18/21 12:30 Blood - Venous Blood Culture - Preliminary No growth after 24 hours. 11/18/21 12:30 Blood - Venous Blood Culture - Preliminary No growth after 24 hours. Review of Systems Constitutional: Reports frequent falls and Denies night sweats Denies change in voice, Denies lip swelling, Denies mouth pain, Reports nasal congestion, Reports nasal discharge and Denies tongue swelling Cardiovascular: Denies chest pain and Reports dyspnea on exertion Respiratory: Reports cough and Reports dyspnea on exertion Gastrointestinal: Denies abdominal pain Musculoskeletal: Reports abnormal gait Reports abnormal gait, Reports confusion and Reports frequent falls Psychiatric: Denies no additional psychiatric complaints and Reports confusion Hematologic/Lymphatic: Denies easy bleeding and Denies lymphadenopathy Allergic/Immunologic: Denies lip swelling and Denies tongue swelling Physical Exam Vital Signs: Vital Signs: Last Vital Signs Temp 97.9 F 11/20/21 11:46 Pulse 65 11/20/21 11:46 Resp 18 11/20/21 11:46 BP 132/61 11/20/21 11:46 Pulse Ox 97 11/20/21 11:46 Oxygen Flow Rate 3 11/18/21 11:16 BMI result Body Mass Index 30.6 Const: General: confusion Orientation/consciousness: confusion Neck: Neck: Yes normal visual inspection, Yes full ROM and Yes no lymphadenopathy Chest: Chest palpation & inspection: normal inspection of the chest Resp: Auscultation: diminished lung sounds Cardio: Rate: regular rate Rhythm: regular rhythm Heart sounds: S1 normal heart sound present and S2 normal heart sound present GI: Palpation (GI): Soft to palpation and nontender Auscultation: normal bowel sounds Skin: General skin exam: rashes and/or lesions noted Neuro: General: confusion Procedures Date of Service Date of Service: 11/20/21 Assessment and Plan Assessment and plan (1) ILD (interstitial lung disease): Status: Acute (2) Acute and chronic respiratory failure with hypercapnia: Status: Acute (3) COPD (chronic obstructive pulmonary disease): Status: Acute (4) Syncope: Status: Acute Assessment and Plan: switch to po Prednisone Start Provgil Continue Diamox, monitor HC03 Respiratory therapy Time Spent With Patient Time: Total time spent is greater than 50% in coordination of care (as documented) at patient's floor/unit and/or counseling patient: Time with patient: 15 - 24 minutes Progress Note: Quality Stroke Does the patient have a stroke diagnosis?: No
--- NOTE | 2021-11-20 12:20 | P.PNIM_ITS ---
Subjective Subjective Date of Service: 11/20/21 Interval History: seen and examined this morning awake and alert this morning denies SOB, cough Review of Systems No fever, no sob Physical Exam Vital Signs: Vital Signs: Last Vital Signs Temp 97.9 F 11/20/21 11:46 Pulse 65 11/20/21 11:46 Resp 18 11/20/21 11:46 BP 132/61 11/20/21 11:46 Pulse Ox 97 11/20/21 11:46 Oxygen Flow Rate 3 11/18/21 11:16 BMI result Body Mass Index 30.6 Const: Other: General: AO X 3, no acute distress Resp: CTA bilateral CVS: S1,S2,RRR GI: +BS, NT, no distention Skin: No rash Neuro: motor grossly intact Psych: appropriate affect Objective Data Active Medications Acetazolamide (Acetazolamide 250 Mg Tablet) 250 mg PO DAILY [facility] Last Admin: 11/20/21 08:14 Dose: 250 mg Documented by: WU Albuterol Sulfate (Albuterol Sulfate 90 Mcg 8 Gm Inhaler) 2 puff INHALE QID PRN PRN Reason: Respiratory Distress Albuterol/Ipratropium (Albuterol/Iprat 2.5/0.5mg 3 Ml Ampul.Neb) 3 ml INHALE Q2H PRN PRN Reason: sob Albuterol/Ipratropium (Albuterol/Iprat 2.5/0.5mg 3 Ml Ampul.Neb) 3 ml INHALE RQ4H WHILE AWAKE [facility] Last Admin: 11/20/21 10:55 Dose: 3 ml Documented by: DOUG Aripiprazole (Aripiprazole 10 Mg Tablet) 10 mg PO DAILY [facility] Last Admin: 11/20/21 08:14 Dose: 10 mg Documented by: WU Aspirin (Aspirin Enteric Coated 81 Mg Tablet.Dr) 81 mg PO DAILY [facility] Last Admin: 11/20/21 08:14 Dose: 81 mg Documented by: WU Fluticasone/Vilanterol (Fluticasone/Vilanterol 200/25 Blst.W.Dev) 1 puff INHALE RDAILY [facility] Last Admin: 11/20/21 07:33 Dose: Not Given Documented by: DOUG Non-Admin Reason: Med Not Available Gabapentin (Gabapentin 300 Mg Capsule) 300 mg PO BEDTIME [facility] Last Admin: 11/19/21 21:15 Dose: 300 mg Documented by: LD Heparin Sodium (Porcine) (Heparin Sodium,Porcine 5,000 Unit/Ml Vial) 5,000 unit SUBCUT Q12H [facility] Last Admin: 11/20/21 09:39 Dose: 5,000 unit Documented by: WU Ipratropium [place] (Ipratropium [place] 0.06 % 15 Ml [place]) 2 spray NOSTRIL-B TID [facility] Last Admin: 11/20/21 08:21 Dose: 2 spray Documented by: WU Lamotrigine (Lamotrigine 100 Mg Tablet) 300 mg PO BEDTIME [facility] Last Admin: 11/19/21 21:15 Dose: 300 mg Documented by: DL Lamotrigine (Lamotrigine 100 Mg Tablet) 200 mg PO DAILY [facility] Last Admin: 11/20/21 08:14 Dose: 200 mg Documented by: WU Magnesium Oxide (Magnesium Oxide 400 Mg Tablet) 400 mg PO BID [facility] Last Admin: 11/20/21 08:14 Dose: 400 mg Documented by: WU Metoprolol Succinate (Metoprolol Succinate Er 50 Mg Tab.Er.24h) 50 mg PO DAILY [facility]; Protocol Last Admin: 11/20/21 08:16 Dose: 50 mg Documented by: WU Mirtazapine (Mirtazapine 15 Mg Tablet) 15 mg PO BEDTIME [facility] Last Admin: 11/19/21 21:15 Dose: 15 mg Documented by: LD Modafinil (Modafinil 100 Mg Tablet) 100 mg PO DAILY [facility] Montelukast Sodium (Montelukast Sodium 10 Mg Tablet) 10 mg PO BEDTIME [facility] Last Admin: 11/19/21 21:16 Dose: 10 mg Documented by: LD Multivitamins/Vitamin C (Multivitamin Tablet) 1 tab PO DAILY [facility] Last Admin: 11/20/21 08:14 Dose: 1 tab Documented by: WU Neomycin/Polymyxin/Hydrocortisone (Neomycin/Polymyxin/Hc Otic [place] Bottle) 2 drop EAR-BOTH QID [facility] Last Admin: 11/20/21 08:21 Dose: 2 drop Documented by: WU Oxymetazoline HCl (Oxymetazoline Hcl 0.05 % Nasal 15 Ml [place]) 2 spray NOSTRIL- B QID PRN PRN Reason: Nasal Congestion Pharmacy Consult (Consult Rx Perform Med Rec) 1 each MISCELLANE ONCE PRN PRN Reason: Consult order Polyethylene Glycol (Polyethylene Glycol 3350 17 Gm Powd.Pack) 17 gm PO DAILY PRN PRN Reason: Constipation Senna (Sennosides 8.6 Mg Tablet) 8.6 mg PO BEDTIME [facility] Last Admin: 11/19/21 21:15 Dose: 8.6 mg Documented by: LD Triamcinolone Acetonide (Triamcinolone Acet 0.1 % Cream 15 Gm Tube) 1 appl TOPICAL BID [facility] Last Admin: 11/20/21 08:21 Dose: 1 appl Documented by: WU Vilazodone HCl (Vilazodone Hcl 20 Mg Tablet) 20 mg PO DAILY [facility] Last Admin: 11/20/21 08:14 Dose: 20 mg Documented by: WU Vitamin D (Cholecalciferol (Vitamin D3) 25 Mcg Tablet) 50 mcg PO DAILY [facility] Last Admin: 11/20/21 08:17 Dose: 50 mcg Documented by: WU Labs CBC & Chem 7: 11/20/21 06:24 11/20/21 06:24 Labs: Laboratory Results - last 24 hr 11/18/21 11/20/21 11/20/21 12:30 06:24 06:24 MCV 96.4 MCH 28.4 MCHC 29.5 L RDW 14.1 Plt Count 482 H MPV 8.7 L Immature Gran % (Auto) 0.8 H Neut % (Auto) 87.3 H Lymph % (Auto) 5.6 L [place] % (Auto) 5.9 Eos % (Auto) 0.2 Baso % (Auto) 0.2 Lymph # (Auto) 0.4 L [place] # (Auto) 0.4 Eos # (Auto) 0.0 Baso # (Auto) 0.0 Abs Immat Gran (auto) 0.05 H Absolute Neuts (auto) 5.7 Absolute Nucleated RBC 0.000 Nucleated RBC % (auto) 0.0 VBG pH VBG pCO2 VBG pO2 VBG HCO3 VBG O2 Saturation VBG Base Excess Anion Gap 8 L Estim Creat Clear Calc 59.2 Estimated GFR > 60 Random Glucose 128 H Calcium 8.6 Phosphorus 2.5 L Magnesium 2.6 Prolactin 1.8 L 11/20/21 06:31 MCV MCH MCHC RDW Plt Count MPV Immature Gran % (Auto) Neut % (Auto) Lymph % (Auto) [place] % (Auto) Eos % (Auto) Baso % (Auto) Lymph # (Auto) [place] # (Auto) Eos # (Auto) Baso # (Auto) Abs Immat Gran (auto) Absolute Neuts (auto) Absolute Nucleated RBC Nucleated RBC % (auto) VBG pH 7.38 VBG pCO2 78 VBG pO2 37 VBG HCO3 47 H VBG O2 Saturation 57.0 VBG Base Excess 18.2 Anion Gap Estim Creat Clear Calc Estimated GFR Random Glucose Calcium Phosphorus Magnesium Prolactin Microbiology Microbiology Results: Microbiology 11/18/21 12:30 Blood Culture - Preliminary Blood - Venous No growth after 24 hours. 11/18/21 12:30 Blood Culture - Preliminary Blood - Venous No growth after 24 hours. Assessment and Plan (1) ILD (interstitial lung disease): Status: Acute (2) Acute and chronic respiratory failure with hypercapnia: Status: Acute (3) COPD (chronic obstructive pulmonary disease): Status: Acute (4) CO2 retention: Status: Acute Assessment and Plan: This is a 66 year old female with past medical history of end stage COPD with chronic hypoxic respiratory failure on 5L NC and 4hrs during the day & 8hrs QHS NIV (via [facility]) on diamox, hx tracheostomy s/p decannulation (placed 04/22/17), obesity, bipolar depression, limb swelling and eczema presents to the ED from assisted living apartment via EMS after being found down with her O2 off and unresponsive found to have hypercarbic respiratory failure downgraded from the ICU overnight acute on chronic hypercarbic respiratory failure--improved continue baseline supplemental o2 with goal o2 of 88-92, bipap (4 hours during the day and overnight) continue diamox Starting on Provigil today change to oral prednisone Discussed with with Dr. Acharya mood continue home meds HTN continue metoprolol dvt ppx - heparin probable discharge tomorrow Quality Stroke Does the patient have a stroke diagnosis?: No VTE Prior VTE?: No VTE Risk Level:: Medical - low VTE Device Contraindication: N/A - Device Ordered VTE Drug Contraindication: N/A - Med Ordered
--- NOTE | 2021-11-20 12:47 | MHC.CM.PN ---
Addendum entered by Zuleima Huitron 11/20/21 13:01: EMAIL ADDRESS FOR MILTON BEVERLY WAS ENTERED INCORRECTLY IN NOTE. THE CORRECT EMAIL ADDRESS IS: [email or web address] Addendum entered by Zuleima Huitron 11/20/21 12:57: CORRECTION: MILTON BEVERLY IS THE [facility] MD. OF NOTE: HE IS ALSO THE CHEESE TESTER STAFF MEMBER FOR ALL WEEKEND AND HOLIDAY DISCHARGES PER HIS REPORT Addendum entered by Zuleima Huitron 11/20/21 12:55: CM INFORMED PT WILL DC HOME TOMORROW MILTON FROM [facility] WAS INFORMED VIA T/C HE IS AWARE A CM WILL CONFIRM DC TOMORROW Original Note: CM WAS INFORMED PT MAY BE CLEARED TO DC CM MET WITH PT WHO REPORTS SHE WILL NEED SEVERAL THINGS COMPLETED BEFORE SHE CAN DC. SHE REPORTS SHE NEEDS TO HAVE HER VENTILATOR (TRILOGY) CHANGED TO A BIPAP BY DENISSE. SHE ALSO REPORTS SHE WILL NEED HER HOME OXYGEN COMPANY, [employer], TO BRING HER A NEW CONCENTRATOR THE ONE SHE HAS DOES NOT GO ABOVE 4.5L. LASTLY, SHE WILL NEED [facility] TO ENSURE THEY HAVE HOME CARE AVAILABLE WHEN SHE ARRIVES HOME. GENE CALLED [facility] [phone] AND LEFT A MESSAGE WITH THE ANSWERING SERVICE. THE CHEESE TESTER NURSE AT [facility], MILTON, CALLED BACK WITHIN MOMENTS CM INFORMED MILTON OF PTS CONCERNS REGARDING HER TRILOGY AND HOME O2. MILTON REPORTS THEY WILL MANAGE THESE CONCERNS AND IF HER DC ORDERS INDICATE SHE NEEDS NEW EQUIPMENT OR SERVICES, THEY WILL ARRANGE THEM. HE REPORTS CURRENTLY, THE PT HAS A VISITING NURSE, PT, OT, ADMINISTRATIVE SERVICES SPECIALIST, AND FLIGHT ENGINEER HELICOPTER. THEY ALSO PROVIDE HER TRANSPORTATION SERVICES. MILTON ASKS THAT WHEN THE PT IS DISCHARGED, HER DC PAPERWORK BE EMAILED TO: [email or web address] FAXED TO [phone]. MILTON WILL ALSO NEED A T/C TO CONFIRM D/C, HIS DIRECT NUMBER IS [phone]
[2021-11-20] MEDS: modafiniL 100 MG TABLET PO (14:28)
[2021-11-20] MEDS: lamoTRIgine 100 MG TABLET 300 MG PO (20:23)
[2021-11-20] MEDS: Sennosides 8.6 MG TABLET PO (20:23)
[2021-11-20] MEDS: Gabapentin 300 MG CAPSULE PO (20:23)
[2021-11-20] MEDS: Montelukast Sodium 10 MG TABLET PO (20:23)
[2021-11-20] MEDS: Mirtazapine 15 MG TABLET PO (20:23)
[2021-11-21] VITALS (14 sets, daily range): BP systolic 114–149; BP diastolic 55–73; PULSE 67–88; RESP 15–30; TEMP 36.6–37.1; O2SAT 90–99; BMI 30.5
--- NOTE | 2021-11-21 02:57 | PC.NURSE ---
Patient voices concern of discharge date. She states she has not ambualted much in the hospital, uses a walker at home and is concerned about weakness and ability to get around in the house as well as oxygen level dropping while ambulating.
[2021-11-21] MEDS: Albuterol/Iprat 2.5/0.5MG 3 ML AMPUL.NEB INHALE ×4 (07:22→19:37)
[2021-11-21 07:24] LABS: MANUAL DIFF FLAG NO
[2021-11-21 07:26] LABS: Basophils Percent Auto 0.4 % (0-2); Eosinophils Absolute Auto 0.4 X10*3/uL (0.0-0.4); Eosinophils Percent Auto 6.7 % (0-4); Hematocrit 37.7 % (37.0-47.0); Hemoglobin 11.1 g/dl (12.0-16.0); Imm Gran Abs Auto 0.05 X10*3/uL (0.00-0.03); Imm Gran Pct Auto 0.9 % (0.0-0.4); Lymphocytes Absolute Auto 0.8 X10*3/uL (1.2-4.9); Lymphocytes Percent Auto 14.3 % (20-40); Mean Corpuscular HGB Conc 29.4 g/dl (31.0-35.0); Mean Corpuscular Hemoglobin 28.8 pg (27.0-33.0); Mean Corpuscular Volume 97.9 fL (80.0-98.0); Mean Platelet Volume 8.5 fL (9.4-12.3); Monocytes Absolute Auto 0.6 X10*3/uL (0.1-1.2); Monocytes Percent Auto 10.7 % (2-11); Neutrophils Absolute Auto 3.7 x10*3/uL (2.0-8.3); Platelet Count 455 X10*3/uL (160-400); Red Blood Count 3.85 X10*6/uL (4.20-5.50); Red Cell Distribution Width 14.6 % (11.0-16.0); White Blood Count 5.5 X10*3/uL (4.8-10.8)
[2021-11-21 07:32] LABS: Venous Blood Gas Refer to POC result
[2021-11-21 07:33] LABS: VBG Base Excess 20.8 mmol/L; VBG HCO3 52 mmol/L (22-26); VBG pCO2 103 mmHg; VBG pH 7.31 (7.32-7.43); VBG pO2 28 mmHg
[2021-11-21 08:07] LABS: Anion Gap 8 (12-20); Blood Urea Nitrogen 18 mg/dL (9-16); Calcium 8.7 mg/dL (8.4-10.2); Carbon Dioxide 42 mmol/L (22-29); Chloride 101 mmol/L (96-108); Creatinine Clr Calc Pharmacy 64.2; Estimated Glomerular Filt Rate > 60; Glucose Random 87 mg/dL (60-115); Magnesium 2.3 mg/dL (1.6-2.6); Phosphorus 2.7 mg/dL (2.7-4.5); Potassium 4.9 mmol/L (3.3-5.1); Sodium 146 mmol/L (135-145)
[2021-11-21] MEDS: modafiniL 100 MG TABLET PO (08:36)
[2021-11-21] MEDS: Aspirin Enteric Coated 81 MG TABLET.DR PO (08:36)
[2021-11-21] MEDS: Multivitamin TABLET 1 TAB PO (08:36)
[2021-11-21] MEDS: Metoprolol Succinate ER 50 MG TAB.ER.24H PO (08:36)
[2021-11-21] MEDS: Cholecalciferol (Vitamin D3) 25 MCG TABLET 50 MCG PO (08:36)
[2021-11-21] MEDS: lamoTRIgine 100 MG TABLET 200 MG PO (08:36)
[2021-11-21] MEDS: ARIPiprazole 10 MG TABLET PO (08:36)
[2021-11-21] MEDS: Magnesium Oxide 400 MG TABLET PO ×2 (08:36→20:11)
[2021-11-21] MEDS: Vilazodone HCL 20 MG TABLET PO (08:36)
[2021-11-21] MEDS: acetaZOLAMIDE 250 MG TABLET PO (08:36)
[2021-11-21] MEDS: Heparin Sodium,Porcine 5,000 UNIT/ML VIAL 5000 UNIT SUBCUT ×2 (08:40→20:11)
[2021-11-21] MEDS: Triamcinolone Acet 0.1 % Cream 15 GM TUBE 1 APPL TOPICAL (08:42)
[2021-11-21] MEDS: Ipratropium Bromide Nas 0.06 % 15 ML SPRAY 2 SPRAY NOSTRIL-B ×3 (08:42→20:12)
[2021-11-21] MEDS: predniSONE 20 MG TABLET 40 MG PO (09:11)
--- NOTE | 2021-11-21 10:13 | MHC.CM.PN ---
Per Medical (LEARNING DISABILITIES SPECIALIST/Martha), Patient has stated that she feel weak and is requesting STR. GENE spoke with [facility] Boilermaker Apprentice/Erick at [phone], who approved the STR plan. Erick provided the names of SNFs which CHAVEZ is contracted with and referrals will be made. Erick approved a referral to [facility] (Respiratory program)and he indicated that he will do some work on his end to see if he can make that happen (likely a good option for Patient). GENE will follow.
--- NOTE | 2021-11-21 12:30 | P.PNIM_ITS ---
Subjective Subjective Date of Service: 11/21/21 Review of Systems Respiratory failure with hypercapnia Feeling better and using BiPAP as needed All other systems are reviewed and are negative Physical Exam Verdana 4l Vital Signs: Verdana 4d Verdana 4d Vital Signs: Verdana 4d Verdana 4Bd Last Vital Signs Verdana 4d Costume Seamstress New 4d Costume Seamstress New 4d Temp 97.8 F 11/21/21 11:29 Costume Seamstress New 4d Pulse 87 11/21/21 11:29 Costume Seamstress NewNew 4d Resp 18 11/21/21 11:29 BP 134/58 L 11/21/21 11:29 Pulse Ox 91 L 11/21/21 11:29 Oxygen Flow Rate 3 11/18/21 11:16 BMI result Body Mass Index 30.5 Appearing in no acute distress lung sounds are clear to auscultation heart regular rate rhythm, clear S1, S2 positive bowel sounds, abdomen is soft, nontender neuro patient is alert x3, no focal deficits Objective Data Active Medications Acetazolamide (Acetazolamide 250 Mg Tablet) 250 mg PO DAILY [facility] Last Admin: 11/21/21 08:36 Dose: 250 mg Documented by: JOSE DAVID Albuterol Sulfate (Albuterol Sulfate 90 Mcg 8 Gm Inhaler) 2 puff INHALE QID PRN PRN Reason: Respiratory Distress Albuterol/Ipratropium (Albuterol/Iprat 2.5/0.5mg 3 Ml Ampul.Neb) 3 ml INHALE Q2H PRN PRN Reason: sob Albuterol/Ipratropium (Albuterol/Iprat 2.5/0.5mg 3 Ml Ampul.Neb) 3 ml INHALE RQ4H WHILE AWAKE [facility] Last Admin: 11/21/21 11:05 Dose: 3 ml Documented by: DIPTI Aripiprazole (Aripiprazole 10 Mg Tablet) 10 mg PO DAILY [facility] Last Admin: 11/21/21 08:36 Dose: 10 mg Documented by: JOSE DAVID Aspirin (Aspirin Enteric Coated 81 Mg Tablet.Dr) 81 mg PO DAILY [facility] Last Admin: 11/21/21 08:36 Dose: 81 mg Documented by: JOSE DAVID Fluticasone/Vilanterol (Fluticasone/Vilanterol 200/25 Blst.W.Dev) 1 puff INHALE RDAILY [facility] Last Admin: 11/21/21 08:46 Dose: Not Given Documented by: DIPTI Non-Admin Reason: Med Not Available Gabapentin (Gabapentin 300 Mg Capsule) 300 mg PO BEDTIME [facility] Last Admin: 11/20/21 20:23 Dose: 300 mg Documented by: DYLAN Heparin Sodium (Porcine) (Heparin Sodium,Porcine 5,000 Unit/Ml Vial) 5,000 unit SUBCUT Q12H [facility] Last Admin: 11/21/21 08:40 Dose: 5,000 unit Documented by: JOSE DAVID Ipratropium [place] (Ipratropium [place] Regan 0.06 % 15 Ml [place]) 2 spray NOSTRIL-B TID [facility] Last Admin: 11/21/21 08:42 Dose: 2 spray Documented by: JOSE DAVID Lamotrigine (Lamotrigine 100 Mg Tablet) 300 mg PO BEDTIME [facility] Last Admin: 11/20/21 20:23 Dose: 300 mg Documented by: DYLAN Lamotrigine (Lamotrigine 100 Mg Tablet) 200 mg PO DAILY [facility] Last Admin: 11/21/21 08:36 Dose: 200 mg Documented by: JOSE DAVID Magnesium Oxide (Magnesium Oxide 400 Mg Tablet) 400 mg PO BID [facility] Last Admin: 11/21/21 08:36 Dose: 400 mg Documented by: JOSE DAVID Metoprolol Succinate (Metoprolol Succinate Er 50 Mg Tab.Er.24h) 50 mg PO DAILY [facility]; Protocol Last Admin: 11/21/21 08:36 Dose: 50 mg Documented by: JOSE DAVID Mirtazapine (Mirtazapine 15 Mg Tablet) 15 mg PO BEDTIME [facility] Last Admin: 11/20/21 20:23 Dose: 15 mg Documented by: DYLAN Modafinil (Modafinil 100 Mg Tablet) 100 mg PO DAILY [facility] Last Admin: 11/21/21 08:36 Dose: 100 mg Documented by: JOSE DAVID Montelukast Sodium (Montelukast Sodium 10 Mg Tablet) 10 mg PO BEDTIME [facility] Last Admin: 11/20/21 20:23 Dose: 10 mg Documented by: DYLAN Multivitamins/Vitamin C (Multivitamin Tablet) 1 tab PO DAILY [facility] Last Admin: 11/21/21 08:36 Dose: 1 tab Documented by: JOSE DAVID Neomycin/Polymyxin/Hydrocortisone (Neomycin/Polymyxin/Hc Otic [place] Bottle) 2 drop EAR-BOTH QID [facility] Last Admin: 11/21/21 08:45 Dose: Not Given Documented by: JOSE DAVID Non-Admin Reason: Patient Refused Oxymetazoline HCl (Oxymetazoline Hcl 0.05 % Nasal 15 Ml [place]) 2 spray NOSTRIL- B QID PRN PRN Reason: Nasal Congestion Pharmacy Consult (Consult Rx Perform Med Rec) 1 each MISCELLANE ONCE PRN PRN Reason: Consult order Polyethylene Glycol (Polyethylene Glycol 3350 17 Gm Powd.Pack) 17 gm PO DAILY PRN PRN Reason: Constipation Prednisone (Prednisone 20 Mg Tablet) 40 mg PO DAILY [facility] Last Admin: 11/21/21 09:11 Dose: 40 mg Documented by: JOSE DAVID Senna (Sennosides 8.6 Mg Tablet) 8.6 mg PO BEDTIME [facility] Last Admin: 11/20/21 20:23 Dose: 8.6 mg Documented by: DEANNYEEdna Triamcinolone Acetonide (Triamcinolone Acet 0.1 % Cream 15 Gm Tube) 1 appl TOPICAL BID [facility] Last Admin: 11/21/21 08:42 Dose: 1 appl Documented by: JOSE DAVID Vilazodone HCl (Vilazodone Hcl 20 Mg Tablet) 20 mg PO DAILY [facility] Last Admin: 11/21/21 08:36 Dose: 20 mg Documented by: JOSE DAVID Vitamin D (Cholecalciferol (Vitamin D3) 25 Mcg Tablet) 50 mcg PO DAILY [facility] Last Admin: 11/21/21 08:36 Dose: 50 mcg Documented by: JOSE DAVID Labs CBC & Chem 7: 11/21/21 07:19 11/21/21 07:19 Labs: Laboratory Results - last 24 hr 11/18/21 11/19/21 11/20/21 12:30 05:34 06:24 MCV MCH MCHC RDW Plt Count MPV Immature Gran % (Auto) Neut % (Auto) Lymph % (Auto) [place] % (Auto) Eos % (Auto) Baso % (Auto) Lymph # (Auto) [place] # (Auto) Eos # (Auto) Baso # (Auto) Abs Immat Gran (auto) Absolute Neuts (auto) Absolute Nucleated RBC Nucleated RBC % (auto) VBG pH VBG pCO2 VBG pO2 VBG HCO3 VBG O2 Saturation VBG Base Excess Carbon Dioxide 41 H* 39 H 41 H* Anion Gap Estim Creat Clear Calc Estimated GFR Random Glucose Calcium Phosphorus Magnesium 11/21/21 11/21/21 11/21/21 07:19 07:19 07:22 MCV 97.9 MCH 28.8 MCHC 29.4 L RDW 14.6 Plt Count 455 H MPV 8.5 L Immature Gran % (Auto) 0.9 H Neut % (Auto) 67.0 Lymph % (Auto) 14.3 L [place] % (Auto) 10.7 Eos % (Auto) 6.7 H Baso % (Auto) 0.4 Lymph # (Auto) 0.8 L [place] # (Auto) 0.6 Eos # (Auto) 0.4 Baso # (Auto) 0.0 Abs Immat Gran (auto) 0.05 H Absolute Neuts (auto) 3.7 Absolute Nucleated RBC 0.000 Nucleated RBC % (auto) 0.0 VBG pH 7.31 L VBG pCO2 103 VBG pO2 28 VBG HCO3 52 H VBG O2 Saturation 36.0 VBG Base Excess 20.8 Carbon Dioxide 42 H* Anion Gap 8 L Estim Creat Clear Calc 64.2 Estimated GFR > 60 Random Glucose 87 Calcium 8.7 Phosphorus 2.7 Magnesium 2.3 Microbiology Microbiology Results: Microbiology 11/18/21 12:30 Blood Culture - Preliminary Blood - Venous No growth after 48 hours. 11/18/21 12:30 Blood Culture - Preliminary Blood - Venous No growth after 48 hours. Assessment and Plan (1) Acute and chronic respiratory failure with hypercapnia: Status: Acute (2) Chronic respiratory alkalosis: Status: Acute Assessment and Plan: This is a 66 year old female with past medical history of end stage COPD with chronic hypoxic respiratory failure on 5L NC and 4hrs during the day & 8hrs QHS NIV (via [facility]) on diamox, hx tracheostomy s/p decannulation (placed 04/22/17), obesity, bipolar depression, limb swelling and eczema presents to the ED from assisted living apartment via EMS after being found down with her O2 off and unresponsive found to have hypercarbic respiratory failure downgraded from the ICU overnight Acute on chronic hypercarbic respiratory failure--improved continue baseline supplemental o2 with goal o2 of 88-92, bipap (4 hours during the day and overnight) continue diamox and Provigil change to oral prednisone Discussed with with Dr. Acharya Chronic (compensated) primary respiratory acidosis, with metabolic alkalosis Mood continue home meds HTN continue metoprolol dvt ppx - heparin Attending Dr. Diaz Quality Stroke Does the patient have a stroke diagnosis?: No VTE Prior VTE?: No VTE Risk Level:: Medical - low VTE Device Contraindication: N/A - Device Ordered VTE Drug Contraindication: N/A - Med Ordered
[2021-11-21] MEDS: lamoTRIgine 100 MG TABLET 300 MG PO (20:10)
[2021-11-21] MEDS: Gabapentin 300 MG CAPSULE PO (20:11)
[2021-11-21] MEDS: Mirtazapine 15 MG TABLET PO (20:11)
[2021-11-21] MEDS: Montelukast Sodium 10 MG TABLET PO (20:11)
[2021-11-21] MEDS: Sennosides 8.6 MG TABLET PO (20:11)
[2021-11-22] VITALS (12 sets, daily range): BP systolic 123–140; BP diastolic 58–69; PULSE 70–88; RESP 18–22; TEMP 36.4–37; O2SAT 91–96; BMI 30.7
[2021-11-22] MEDS: Albuterol/Iprat 2.5/0.5MG 3 ML AMPUL.NEB INHALE ×3 (07:37→19:46)
[2021-11-22 09:10] LABS: Anion Gap 11 (12-20); Blood Urea Nitrogen 13 mg/dL (9-16); Calcium 9.3 mg/dL (8.4-10.2); Carbon Dioxide 38 mmol/L (22-29); Chloride 100 mmol/L (96-108); Creatinine Clr Calc Pharmacy 73.4; Estimated Glomerular Filt Rate > 60; Glucose Random 91 mg/dL (60-115); Sodium 144 mmol/L (135-145)
[2021-11-22] MEDS: acetaZOLAMIDE 250 MG TABLET PO (09:26)
[2021-11-22] MEDS: Cholecalciferol (Vitamin D3) 25 MCG TABLET 50 MCG PO (09:26)
[2021-11-22] MEDS: Heparin Sodium,Porcine 5,000 UNIT/ML VIAL 5000 UNIT SUBCUT ×2 (09:26→20:31)
[2021-11-22] MEDS: Vilazodone HCL 20 MG TABLET PO (09:27)
[2021-11-22] MEDS: Magnesium Oxide 400 MG TABLET PO ×2 (09:27→20:31)
[2021-11-22] MEDS: Multivitamin TABLET 1 TAB PO (09:27)
[2021-11-22] MEDS: ARIPiprazole 10 MG TABLET PO (09:27)
[2021-11-22] MEDS: predniSONE 20 MG TABLET 40 MG PO (09:27)
[2021-11-22] MEDS: Aspirin Enteric Coated 81 MG TABLET.DR PO (09:27)
[2021-11-22] MEDS: lamoTRIgine 100 MG TABLET 200 MG PO (09:28)
[2021-11-22] MEDS: modafiniL 100 MG TABLET PO (09:28)
[2021-11-22] MEDS: Metoprolol Succinate ER 50 MG TAB.ER.24H PO (09:28)
[2021-11-22] MEDS: Triamcinolone Acet 0.1 % Cream 15 GM TUBE 1 APPL TOPICAL ×2 (10:10→20:32)
[2021-11-22] MEDS: Ipratropium Bromide Nas 0.06 % 15 ML SPRAY 2 SPRAY NOSTRIL-B (10:10)
--- NOTE | 2021-11-22 11:45 | MHC.CM.PN ---
Addendum entered by Zuleima Huitron 11/22/21 14:05: [facility] RESPONDED INDICATING THEY DO NOT HAVE A BED FOR THE PT TODAY AND STATING THEY WILL NEED INSURANCE AUTH. THEY WOULD LIKE TO FOLLOW UP Tuesday Original Note: PT IS MEDICALLY CLEAR TO DC TO REHAB. FIRST CHOICE, BASED ON PTS TREATMENT NEEDS, IS [facility] [place] UPDATES [facility] [place] [facility]. CURRENTLY AWAITING RESPONSE PT HAS RECEIVED TWO DOSES OF PFIZER VACCINE AND THE BOOSTER
--- NOTE | 2021-11-22 13:01 | HO.PM.IMPN ---
Subjective Subjective Date of Service: 11/22/21 Review of Systems Respiratory failure with hypercapnia Feeling better and using BiPAP as needed All other systems are reviewed and are negative Physical Exam Vital Signs: Vital Signs: Last Vital Signs Temp 98.6 F 11/22/21 12:00 Pulse 70 11/22/21 12:00 Resp 22 H 11/22/21 12:00 BP 140/66 H 11/22/21 12:00 Pulse Ox 92 11/22/21 12:00 Oxygen Flow Rate 3 11/18/21 11:16 BMI result Body Mass Index 30.7 Appearing in no acute distress lung sounds are clear to auscultation heart regular rate rhythm, clear S1, S2 positive bowel sounds, abdomen is soft, nontender neuro patient is alert x3, no focal deficits Objective Data Active Medications Acetazolamide (Acetazolamide 250 Mg Tablet) 250 mg PO DAILY [facility] Last Admin: 11/22/21 09:26 Dose: 250 mg Documented by: LEXY Albuterol Sulfate (Albuterol Sulfate 90 Mcg 8 Gm Inhaler) 2 puff INHALE QID PRN PRN Reason: Respiratory Distress Albuterol/Ipratropium (Albuterol/Iprat 2.5/0.5mg 3 Ml Ampul.Neb) 3 ml INHALE Q2H PRN PRN Reason: sob Albuterol/Ipratropium (Albuterol/Iprat 2.5/0.5mg 3 Ml Ampul.Neb) 3 ml INHALE RQ4H WHILE AWAKE [facility] Last Admin: 11/22/21 12:32 Dose: Not Given Documented by: DANK Non-Admin Reason: Patient Refused Aripiprazole (Aripiprazole 10 Mg Tablet) 10 mg PO DAILY [facility] Last Admin: 11/22/21 09:27 Dose: 10 mg Documented by: LEXY Aspirin (Aspirin Enteric Coated 81 Mg Tablet.Dr) 81 mg PO DAILY [facility] Last Admin: 11/22/21 09:27 Dose: 81 mg Documented by: LEXY Fluticasone/Vilanterol (Fluticasone/Vilanterol 200/25 Blst.W.Dev) 1 puff INHALE RDAILY [facility] Last Admin: 11/22/21 07:47 Dose: Not Given Documented by: DIPTI Non-Admin Reason: Med Not Available Gabapentin (Gabapentin 300 Mg Capsule) 300 mg PO BEDTIME [facility] Last Admin: 11/21/21 20:11 Dose: 300 mg Documented by: JOSE DAVID Heparin Sodium (Porcine) (Heparin Sodium,Porcine 5,000 Unit/Ml Vial) 5,000 unit SUBCUT Q12H [facility] Last Admin: 11/22/21 09:26 Dose: 5,000 unit Documented by: LEXY Ipratropium [place] (Ipratropium [place] Regan 0.06 % 15 Ml [place]) 2 spray NOSTRIL-B TID [facility] Last Admin: 11/22/21 10:10 Dose: 2 spray Documented by: LEXY Lamotrigine (Lamotrigine 100 Mg Tablet) 300 mg PO BEDTIME [facility] Last Admin: 11/21/21 20:10 Dose: 300 mg Documented by: JOSE DAVID Lamotrigine (Lamotrigine 100 Mg Tablet) 200 mg PO DAILY [facility] Last Admin: 11/22/21 09:28 Dose: 200 mg Documented by: LEXY Magnesium Oxide (Magnesium Oxide 400 Mg Tablet) 400 mg PO BID [facility] Last Admin: 11/22/21 09:27 Dose: 400 mg Documented by: LEXY Metoprolol Succinate (Metoprolol Succinate Er 50 Mg Tab.Er.24h) 50 mg PO DAILY [facility]; Protocol Last Admin: 11/22/21 09:28 Dose: 50 mg Documented by: LEXY Mirtazapine (Mirtazapine 15 Mg Tablet) 15 mg PO BEDTIME [facility] Last Admin: 11/21/21 20:11 Dose: 15 mg Documented by: JOSE DAVID Modafinil (Modafinil 100 Mg Tablet) 100 mg PO DAILY [facility] Last Admin: 11/22/21 09:28 Dose: 100 mg Documented by: LEXY Montelukast Sodium (Montelukast Sodium 10 Mg Tablet) 10 mg PO BEDTIME [facility] Last Admin: 11/21/21 20:11 Dose: 10 mg Documented by: JOSE DAVID Multivitamins/Vitamin C (Multivitamin Tablet) 1 tab PO DAILY [facility] Last Admin: 11/22/21 09:27 Dose: 1 tab Documented by: LEXY Neomycin/Polymyxin/Hydrocortisone (Neomycin/Polymyxin/Hc Otic [place] Bottle) 2 drop EAR-BOTH QID [facility]PL[facility] Last Admin: 11/22/21 12:18 Dose: Not Given Documented by: LEXY Non-Admin Reason: Patient Refused Oxymetazoline HCl (Oxymetazoline Hcl 0.05 % Nasal 15 Ml [place]) 2 spray NOSTRIL-B QID PRN PRN Reason: Nasal Congestion Pharmacy Consult (Consult Rx Perform Med Rec) 1 each MISCELLANE ONCE PRN PRN Reason: Consult order Polyethylene Glycol (Polyethylene Glycol 3350 17 Gm Powd.Pack) 17 gm PO DAILY PRN PRN Reason: Constipation Prednisone (Prednisone 20 Mg Tablet) 40 mg PO DAILY [facility] Last Admin: 11/22/21 09:27 Dose: 40 mg Documented by: LEXY Senna (Sennosides 8.6 Mg Tablet) 8.6 mg PO BEDTIME [facility] Last Admin: 11/21/21 20:11 Dose: 8.6 mg Documented by: JOSE DAVID Triamcinolone Acetonide (Triamcinolone Acet 0.1 % Cream 15 Gm Tube) 1 appl TOPICAL BID [facility]PL[facility] Last Admin: 11/22/21 10:10 Dose: 1 appl Documented by: LEXY Vilazodone HCl (Vilazodone Hcl 20 Mg Tablet) 20 mg PO DAILY [facility] Last Admin: 11/22/21 09:27 Dose: 20 mg Documented by: LEXY Vitamin D (Cholecalciferol (Vitamin D3) 25 Mcg Tablet) 50 mcg PO DAILY [facility] Last Admin: 11/22/21 09:26 Dose: 50 mcg Documented by: LEXY Labs CBC & Chem 7: 11/21/21 07:19 11/22/21 08:30 Labs: Laboratory Results - last 24 hr 11/22/21 08:30 Anion Gap 11 L Estim Creat Clear Calc 73.4 Estimated GFR > 60 Random Glucose 91 Calcium 9.3 D Assessment and Plan (1) ILD (interstitial lung disease): Status: Acute (2) Acute and chronic respiratory failure with hypercapnia: Status: Acute (3) COPD (chronic obstructive pulmonary disease): Status: Acute Assessment and Plan: This is a 66 year old female with past medical history of end stage COPD with chronic hypoxic respiratory failure on 5L NC and 4hrs during the day & 8hrs QHS NIV (via [facility]) on diamox, hx tracheostomy s/p decannulation (placed 04/22/17), obesity, bipolar depression, limb swelling and eczema presents to the ED from assisted living apartment via EMS after being found down with her O2 off and unresponsive found to have hypercarbic respiratory failure downgraded from the ICU overnight Acute on chronic hypercarbic respiratory failure--improved continue baseline supplemental o2 with goal o2 of 88-92, bipap (4 hours during the day and overnight) continue diamox and Provigil change to oral prednisone Discussed with with Dr. Acharya, requesting pulmonary rehab Chronic (compensated) primary respiratory acidosis, with metabolic alkalosis Mood continue home meds HTN continue metoprolol dvt ppx - heparin Attending Dr. Diaz Quality Stroke Does the patient have a stroke diagnosis?: No VTE Prior VTE?: No VTE Risk Level:: Medical - low VTE Device Contraindication: N/A - Device Ordered VTE Drug Contraindication: N/A - Med Ordered
[2021-11-22] MEDS: Acetaminophen 325 MG TABLET 650 MG PO (18:04)
[2021-11-22] MEDS: Mirtazapine 15 MG TABLET PO (20:31)
[2021-11-22] MEDS: Sennosides 8.6 MG TABLET PO (20:31)
[2021-11-22] MEDS: Montelukast Sodium 10 MG TABLET PO (20:31)
[2021-11-22] MEDS: Gabapentin 300 MG CAPSULE PO (20:31)
[2021-11-22] MEDS: lamoTRIgine 100 MG TABLET 300 MG PO (20:31)
--- NOTE | 2021-11-22 21:46 | PM.PNPUL ---
Subjective Subjective Date of Service: 11/22/21 Interval history: Seen and examined. Doing well. Tolerating the Provigil. Using the BIPAP. Her pressures were decreased. I adjusted up to 14/6. requires 4-5 L nasal cannula. Objective Data Labs CBC & Chem 7: 11/21/21 07:19 11/22/21 08:30 Labs: Laboratory Results - last 24 hr 11/22/21 08:30 Sodium 144 Potassium 5.0 Chloride 100 Carbon Dioxide 38 H Anion Gap 11 L BUN 13 Creatinine 0.71 Estim Creat Clear Calc 73.4 Estimated GFR > 60 Random Glucose 91 Calcium 9.3 D Microbiology Microbiology Results: Microbiology 11/18/21 12:30 Blood - Venous Blood Culture - Preliminary No growth after 48 hours. 11/18/21 12:30 Blood - Venous Blood Culture - Preliminary No growth after 48 hours. Review of Systems Constitutional: Reports frequent falls and Denies night sweats Denies change in voice, Denies lip swelling, Denies mouth pain, Reports nasal congestion, Reports nasal discharge and Denies tongue swelling Cardiovascular: Denies chest pain and Reports dyspnea on exertion Respiratory: Reports cough and Reports dyspnea on exertion Gastrointestinal: Denies abdominal pain Musculoskeletal: Reports abnormal gait Reports abnormal gait, Reports confusion and Reports frequent falls Psychiatric: Denies no additional psychiatric complaints and Reports confusion Hematologic/Lymphatic: Denies easy bleeding and Denies lymphadenopathy Allergic/Immunologic: Denies lip swelling and Denies tongue swelling Physical Exam Vital Signs: Vital Signs: Last Vital Signs Temp 97.6 F 11/22/21 19:01 Pulse 79 11/22/21 19:48 Resp 18 11/22/21 19:48 BP 126/60 11/22/21 19:01 Pulse Ox 92 11/22/21 19:01 Oxygen Flow Rate 3 11/18/21 11:16 BMI result Body Mass Index 30.7 Const: General: confusion Orientation/consciousness: confusion HENMT: General nose exam: Abnormal external nose present and Nasal discharge present Chest: Chest palpation & inspection: normal inspection of the chest Resp: Auscultation: diminished lung sounds Cardio: Rate: regular rate Rhythm: regular rhythm Heart sounds: S1 normal heart sound present and S2 normal heart sound present GI: Palpation (GI): Soft to palpation and nontender Auscultation: normal bowel sounds Skin: General skin exam: rashes and/or lesions noted Neuro: General: confusion Procedures Date of Service Date of Service: 11/22/21 Assessment and Plan Assessment and plan (1) Acute and chronic respiratory failure with hypercapnia: Status: Acute (2) COPD (chronic obstructive pulmonary disease): Status: Acute (3) ILD (interstitial lung disease): Status: Acute (4) CO2 retention: Status: Acute Assessment and Plan: Continue BIPAP 14/6 continue oxygen to keep pox >87% Continue Provigil 100mg Respiratory therapy Consider CT chest to address interstitial changes Rehab Time Spent With Patient Time: Total time spent is greater than 50% in coordination of care (as documented) at patient's floor/unit and/or counseling patient: Time with patient: 15 - 24 minutes Progress Note: Quality Stroke Does the patient have a stroke diagnosis?: No
[2021-11-23] VITALS (12 sets, daily range): BP systolic 120–147; BP diastolic 57–74; PULSE 68–89; RESP 16–25; TEMP 36.3–37.4; O2SAT 85–96
[2021-11-23 07:29] LABS: Hematocrit 36.6 % (37.0-47.0); Mean Corpuscular HGB Conc 30.1 g/dl (31.0-35.0); Mean Corpuscular Hemoglobin 28.7 pg (27.0-33.0); Mean Corpuscular Volume 95.6 fL (80.0-98.0); Mean Platelet Volume 8.8 fL (9.4-12.3); Platelet Count 494 X10*3/uL (160-400); Red Blood Count 3.83 X10*6/uL (4.20-5.50); Red Cell Distribution Width 14.1 % (11.0-16.0); White Blood Count 6.3 X10*3/uL (4.8-10.8)
[2021-11-23] MEDS: Albuterol/Iprat 2.5/0.5MG 3 ML AMPUL.NEB INHALE ×4 (07:47→20:43)
[2021-11-23 07:49] LABS: Anion Gap 11 (12-20); Blood Urea Nitrogen 14 mg/dL (9-16); Calcium 9.1 mg/dL (8.4-10.2); Carbon Dioxide 38 mmol/L (22-29); Chloride 99 mmol/L (96-108); Creatinine Clr Calc Pharmacy 71.4; Estimated Glomerular Filt Rate > 60; Glucose Random 84 mg/dL (60-115); Potassium 4.9 mmol/L (3.3-5.1); Sodium 143 mmol/L (135-145)
[2021-11-23] MEDS: Aspirin Enteric Coated 81 MG TABLET.DR PO (08:44)
[2021-11-23] MEDS: predniSONE 20 MG TABLET 40 MG PO (08:44)
[2021-11-23] MEDS: acetaZOLAMIDE 250 MG TABLET PO (08:44)
[2021-11-23] MEDS: modafiniL 100 MG TABLET PO (08:44)
[2021-11-23] MEDS: Cholecalciferol (Vitamin D3) 25 MCG TABLET 50 MCG PO (08:45)
[2021-11-23] MEDS: Magnesium Oxide 400 MG TABLET PO ×2 (08:45→20:48)
[2021-11-23] MEDS: ARIPiprazole 10 MG TABLET PO (08:45)
[2021-11-23] MEDS: Vilazodone HCL 20 MG TABLET PO (08:46)
[2021-11-23] MEDS: lamoTRIgine 100 MG TABLET 200 MG PO (08:46)
[2021-11-23] MEDS: Heparin Sodium,Porcine 5,000 UNIT/ML VIAL 5000 UNIT SUBCUT ×2 (08:46→20:49)
[2021-11-23] MEDS: Triamcinolone Acet 0.1 % Cream 15 GM TUBE 1 APPL TOPICAL ×2 (08:52→20:48)
[2021-11-23] MEDS: Ipratropium Bromide Nas 0.06 % 15 ML SPRAY 2 SPRAY NOSTRIL-B (08:53)
[2021-11-23] MEDS: Metoprolol Succinate ER 50 MG TAB.ER.24H PO (08:53)
[2021-11-23] MEDS: Multivitamin TABLET 1 TAB PO (08:55)
[2021-11-23 11:11] LABS: COVID-19 Test Negative (Negative)
--- NOTE | 2021-11-23 15:06 | P.PNIM_ITS ---
Subjective Subjective Date of Service: 11/23/21 Review of Systems Follow-up respiratory failure with hypercapnia Doing well on BiPAP as needed sign denies chest pain, nausea, vomiting, diarrhea All other systems are reviewed and are negative Physical Exam Vital Signs: Vital Signs: Last Vital Signs Temp 97.8 F 11/23/21 11:09 Pulse 81 11/23/21 11:19 Resp 20 11/23/21 11:19 BP 126/58 L 11/23/21 11:09 Pulse Ox 91 L 11/23/21 11:09 Oxygen Flow Rate 3 11/18/21 11:16 BMI result Body Mass Index 30.7 Appearing in no acute distress lung sounds dim heart regular rate rhythm, clear S1, S2 positive bowel sounds, abdomen is soft, nontender neuro patient is alert x3, no focal deficits Objective Data Active Medications Acetaminophen (Acetaminophen 325 Mg Tablet) 650 mg PO Q4H PRN PRN Reason: pain and or fever Last Admin: 11/22/21 18:04 Dose: 650 mg Documented by: LEXY Acetazolamide (Acetazolamide 250 Mg Tablet) 250 mg PO DAILY [facility] Last Admin: 11/23/21 08:44 Dose: 250 mg Documented by: ESTELLA Albuterol Sulfate (Albuterol Sulfate 90 Mcg 8 Gm Inhaler) 2 puff INHALE QID PRN PRN Reason: Respiratory Distress Albuterol/Ipratropium (Albuterol/Iprat 2.5/0.5mg 3 Ml Ampul.Neb) 3 ml INHALE Q2H PRN PRN Reason: sob Albuterol/Ipratropium (Albuterol/Iprat 2.5/0.5mg 3 Ml Ampul.Neb) 3 ml INHALE RQ4H WHILE AWAKE [facility] Last Admin: 11/23/21 11:17 Dose: 3 ml Documented by: DOUG Aripiprazole (Aripiprazole 10 Mg Tablet) 10 mg PO DAILY [facility] Last Admin: 11/23/21 08:45 Dose: 10 mg Documented by: ESTELLA Aspirin (Aspirin Enteric Coated 81 Mg Tablet.) 81 mg PO DAILY [facility] Last Admin: 11/23/21 08:44 Dose: 81 mg Documented by: ESTELLA Fluticasone/Vilanterol (Fluticasone/Vilanterol 200/25 Blst.W.Dev) 1 puff INHALE RDAILY [facility] Last Admin: 11/23/21 07:47 Dose: Not Given Documented by: DOUG Non-Admin Reason: Med Not Available Gabapentin (Gabapentin 300 Mg Capsule) 300 mg PO BEDTIME [facility] Last Admin: 11/22/21 20:31 Dose: 300 mg Documented by: EVELYN Heparin Sodium (Porcine) (Heparin Sodium,Porcine 5,000 Unit/Ml Vial) 5,000 unit SUBCUT Q12H [facility] Last Admin: 11/23/21 08:46 Dose: 5,000 unit Documented by: ESTELLA Ipratropium [place] (Ipratropium [place] Regan 0.06 % 15 Ml [place]) 2 spray NOSTRIL-B TID [facility] Last Admin: 11/23/21 08:53 Dose: 2 spray Documented by: ESTELLA Lamotrigine (Lamotrigine 100 Mg Tablet) 300 mg PO BEDTIME [facility] Last Admin: 11/22/21 20:31 Dose: 300 mg Documented by: EVELYN Lamotrigine (Lamotrigine 100 Mg Tablet) 200 mg PO DAILY [facility] Last Admin: 11/23/21 08:46 Dose: 200 mg Documented by: ESTELLA Magnesium Oxide (Magnesium Oxide 400 Mg Tablet) 400 mg PO BID [facility] Last Admin: 11/23/21 08:45 Dose: 400 mg Documented by: ESTELLA Metoprolol Succinate (Metoprolol Succinate Er 50 Mg Tab.Er.24h) 50 mg PO DAILY [facility]; Protocol Last Admin: 11/23/21 08:53 Dose: 50 mg Documented by: ESTELLA Mirtazapine (Mirtazapine 15 Mg Tablet) 15 mg PO BEDTIME [facility] Last Admin: 11/22/21 20:31 Dose: 15 mg Documented by: EVELYN Modafinil (Modafinil 100 Mg Tablet) 100 mg PO DAILY [facility] Last Admin: 11/23/21 08:44 Dose: 100 mg Documented by: ESTELLA Montelukast Sodium (Montelukast Sodium 10 Mg Tablet) 10 mg PO BEDTIME [facility] Last Admin: 11/22/21 20:31 Dose: 10 mg Documented by: EVELYN Multivitamins/Vitamin C (Multivitamin Tablet) 1 tab PO DAILY [facility] Last Admin: 11/23/21 08:55 Dose: 1 tab Documented by: ESTELLA Neomycin/Polymyxin/Hydrocortisone (Neomycin/Polymyxin/Hc Otic [place] Bottle) 2 drop EAR-BOTH QID [facility] Last Admin: 11/23/21 12:42 Dose: Not Given Documented by: ESTELLA Non-Admin Reason: Patient Refused Oxymetazoline HCl (Oxymetazoline Hcl 0.05 % Nasal 15 Ml [place]) 2 spray NOSTRIL- B QID PRN PRN Reason: Nasal Congestion Pharmacy Consult (Consult Rx Perform Med Rec) 1 each MISCELLANE ONCE PRN PRN Reason: Consult order Polyethylene Glycol (Polyethylene Glycol 3350 17 Gm Powd.Pack) 17 gm PO DAILY PRN PRN Reason: Constipation Prednisone (Prednisone 20 Mg Tablet) 40 mg PO DAILY [facility] Last Admin: 11/23/21 08:44 Dose: 40 mg Documented by: ESTELLA Senna (Sennosides 8.6 Mg Tablet) 8.6 mg PO BEDTIME [facility] Last Admin: 11/22/21 20:31 Dose: 8.6 mg Documented by: ANTOIC Triamcinolone Acetonide (Triamcinolone Acet 0.1 % Cream 15 Gm Tube) 1 appl TOPICAL BID [facility] Last Admin: 11/23/21 08:52 Dose: 1 appl Documented by: ESTELLA Vilazodone HCl (Vilazodone Hcl 20 Mg Tablet) 20 mg PO DAILY [facility] Last Admin: 11/23/21 08:46 Dose: 20 mg Documented by: ESTELLA Vitamin D (Cholecalciferol (Vitamin D3) 25 Mcg Tablet) 50 mcg PO DAILY [facility] Last Admin: 11/23/21 08:45 Dose: 50 mcg Documented by: ESTELLA Labs CBC & Chem 7: 11/23/21 06:47 11/23/21 06:47 Labs: Laboratory Results - last 24 hr 11/23/21 11/23/21 11/23/21 06:47 06:47 10:26 MCV 95.6 MCH 28.7 MCHC 30.1 L RDW 14.1 Plt Count 494 H MPV 8.8 L Absolute Nucleated RBC 0.000 Nucleated RBC % (auto) 0.0 Anion Gap 11 L Estim Creat Clear Calc 71.4 Estimated GFR > 60 Random Glucose 84 Calcium 9.1 COVID-19 (EDU) Negative COVID-19 Clin Com See Note Microbiology Microbiology Results: Microbiology 11/18/21 12:30 Blood Culture - Final Blood - Venous No growth after 5 days. 11/18/21 12:30 Blood Culture - Final Blood - Venous No growth after 5 days. Assessment and Plan (1) Chronic respiratory alkalosis: Status: Acute (2) ILD (interstitial lung disease): Status: Acute Assessment and Plan: This is a 66 year old female with past medical history of end stage COPD with chronic hypoxic respiratory failure on 5L NC and 4hrs during the day & 8hrs QHS NIV (via Triology) on diamox, hx tracheostomy s/p decannulation (placed 04/22/17), obesity, bipolar depression, limb swelling and eczema presents to the ED from assisted living apartment via EMS after being found down with her O2 off and unresponsive found to have hypercarbic respiratory failure downgraded from the ICU overnight Acute on chronic hypercarbic respiratory failure--improved continue baseline supplemental o2 with goal o2 of 88-92, bipap (4 hours during the day and overnight) continue diamox and Provigil change to oral prednisone Discussed with with Dr. Acharya, requesting pulmonary rehab Chronic (compensated) primary respiratory acidosis, with metabolic alkalosis Mood continue home meds HTN continue metoprolol Disposition. Plan to transfer to pulmonary rehab when bed available dvt ppx - heparin Attending Dr. Griffin Quality Stroke Does the patient have a stroke diagnosis?: No VTE Prior VTE?: No VTE Risk Level:: Medical - low VTE Device Contraindication: N/A - Device Ordered VTE Drug Contraindication: N/A - Med Ordered
--- NOTE | 2021-11-23 15:15 | MHC.CM.PN ---
pt ready for dc per rounds ..[facility] IN PROGRESS
[2021-11-23] MEDS: Gabapentin 300 MG CAPSULE PO (20:49)
[2021-11-23] MEDS: Sennosides 8.6 MG TABLET PO (20:49)
[2021-11-23] MEDS: Mirtazapine 15 MG TABLET PO (20:49)
[2021-11-23] MEDS: lamoTRIgine 100 MG TABLET 300 MG PO (20:49)
[2021-11-23] MEDS: Montelukast Sodium 10 MG TABLET PO (20:49)
[2021-11-24] VITALS (13 sets, daily range): BP systolic 116–149; BP diastolic 56–84; PULSE 60–82; RESP 17–20; TEMP 36.3–36.9; O2SAT 90–96
[2021-11-24] MEDS: Albuterol/Iprat 2.5/0.5MG 3 ML AMPUL.NEB INHALE ×4 (07:35→19:09)
[2021-11-24] MEDS: ARIPiprazole 10 MG TABLET PO (07:49)
[2021-11-24] MEDS: Cholecalciferol (Vitamin D3) 25 MCG TABLET 50 MCG PO (07:49)
[2021-11-24] MEDS: predniSONE 20 MG TABLET 40 MG PO (07:49)
[2021-11-24] MEDS: Magnesium Oxide 400 MG TABLET PO ×2 (07:49→21:35)
[2021-11-24] MEDS: acetaZOLAMIDE 250 MG TABLET PO (07:49)
[2021-11-24] MEDS: lamoTRIgine 100 MG TABLET 200 MG PO (07:50)
[2021-11-24] MEDS: Multivitamin TABLET 1 TAB PO (07:50)
[2021-11-24] MEDS: Vilazodone HCL 20 MG TABLET PO (07:50)
[2021-11-24] MEDS: Aspirin Enteric Coated 81 MG TABLET.DR PO (07:50)
[2021-11-24] MEDS: modafiniL 100 MG TABLET PO (07:50)
[2021-11-24] MEDS: Triamcinolone Acet 0.1 % Cream 15 GM TUBE 1 APPL TOPICAL ×2 (07:51→21:38)
[2021-11-24] MEDS: Ipratropium Bromide Nas 0.06 % 15 ML SPRAY 2 SPRAY NOSTRIL-B (07:52)
[2021-11-24] MEDS: Metoprolol Succinate ER 50 MG TAB.ER.24H PO (07:52)
[2021-11-24] MEDS: Heparin Sodium,Porcine 5,000 UNIT/ML VIAL 5000 UNIT SUBCUT ×2 (09:54→21:38)
--- NOTE | 2021-11-24 12:57 | HO.PM.IMPN ---
Subjective Subjective Date of Service: 11/24/21 Review of Systems Follow-up respiratory failure with hypercapnia Doing well on BiPAP as needed sign denies chest pain, nausea, vomiting, diarrhea All other systems are reviewed and are negative Physical Exam Vital Signs: Vital Signs: Last Vital Signs Temp 98.0 F 11/24/21 11:11 Pulse 76 11/24/21 11:14 Resp 18 11/24/21 11:14 BP 135/61 11/24/21 11:11 Pulse Ox 90 L 11/24/21 11:11 Oxygen Flow Rate 3 11/18/21 11:16 BMI result Body Mass Index 30.7 Appearing in no acute distress lung sounds are clear to auscultation heart regular rate rhythm, clear S1, S2 positive bowel sounds, abdomen is soft, nontender neuro patient is alert x3, no focal deficits Objective Data Active Medications Acetaminophen (Acetaminophen 325 Mg Tablet) 650 mg PO Q4H PRN PRN Reason: pain and or fever Last Admin: 11/22/21 18:04 Dose: 650 mg Documented by: LEXY Acetazolamide (Acetazolamide 250 Mg Tablet) 250 mg PO DAILY [facility] Last Admin: 11/24/21 07:49 Dose: 250 mg Documented by: ESTELLA Al Hydroxide/Mg Hydroxide (Magnesium Hydrox/Alum Hydrox 30 Ml Oral.Susp) 15 ml PO Q6H PRN PRN Reason: heartburn Albuterol Sulfate (Albuterol Sulfate 90 Mcg 8 Gm Inhaler) 2 puff INHALE QID PRN PRN Reason: Respiratory Distress Albuterol/Ipratropium (Albuterol/Iprat 2.5/0.5mg 3 Ml Ampul.Neb) 3 ml INHALE Q2H PRN PRN Reason: sob Albuterol/Ipratropium (Albuterol/Iprat 2.5/0.5mg 3 Ml Ampul.Neb) 3 ml INHALE RQ4H WHILE AWAKE [facility] Last Admin: 11/24/21 11:13 Dose: 3 ml Documented by: DOUG Aripiprazole (Aripiprazole 10 Mg Tablet) 10 mg PO DAILY [facility] Last Admin: 11/24/21 07:49 Dose: 10 mg Documented by: ESTELLA Aspirin (Aspirin Enteric Coated 81 Mg Tablet.) 81 mg PO DAILY [facility] Last Admin: 11/24/21 07:50 Dose: 81 mg Documented by: ESTELLA Fluticasone/Vilanterol (Fluticasone/Vilanterol 200/25 Blst.W.Dev) 1 puff INHALE RDAILY [facility] Last Admin: 11/24/21 07:38 Dose: Not Given Documented by: DOUG Non-Admin Reason: Med Not Available Gabapentin (Gabapentin 300 Mg Capsule) 300 mg PO BEDTIME [facility] Last Admin: 11/23/21 20:49 Dose: 300 mg Documented by: EVELYN Heparin Sodium (Porcine) (Heparin Sodium,Porcine 5,000 Unit/Ml Vial) 5,000 unit SUBCUT Q12H [facility] Last Admin: 11/24/21 09:54 Dose: 5,000 unit Documented by: ESTELLA Ipratropium [place] (Ipratropium [place] Regan 0.06 % 15 Ml [place]) 2 spray NOSTRIL-B TID [facility] Last Admin: 11/24/21 07:52 Dose: 2 spray Documented by: ESTELLA Lamotrigine (Lamotrigine 100 Mg Tablet) 300 mg PO BEDTIME [facility] Last Admin: 11/23/21 20:49 Dose: 300 mg Documented by: EVELYN Lamotrigine (Lamotrigine 100 Mg Tablet) 200 mg PO DAILY [facility] Last Admin: 11/24/21 07:50 Dose: 200 mg Documented by: ESTELLA Magnesium Oxide (Magnesium Oxide 400 Mg Tablet) 400 mg PO BID [facility] Last Admin: 11/24/21 07:49 Dose: 400 mg Documented by: ESTELLA Metoprolol Succinate (Metoprolol Succinate Er 50 Mg Tab.Er.24h) 50 mg PO DAILY [facility]; Protocol Last Admin: 11/24/21 07:52 Dose: 50 mg Documented by: ESTELLA Mirtazapine (Mirtazapine 15 Mg Tablet) 15 mg PO BEDTIME [facility] Last Admin: 11/23/21 20:49 Dose: 15 mg Documented by: EVELYN Modafinil (Modafinil 100 Mg Tablet) 100 mg PO DAILY [facility] Last Admin: 11/24/21 07:50 Dose: 100 mg Documented by: ESTELLA Montelukast Sodium (Montelukast Sodium 10 Mg Tablet) 10 mg PO BEDTIME [facility] Last Admin: 11/23/21 20:49 Dose: 10 mg Documented by: EVELYN Multivitamins/Vitamin C (Multivitamin Tablet) 1 tab PO DAILY [facility] Last Admin: 11/24/21 07:50 Dose: 1 tab Documented by: ESTELLA Neomycin/Polymyxin/Hydrocortisone (Neomycin/Polymyxin/Hc Otic [place] Bottle) 2 drop EAR-BOTH QID [facility] Last Admin: 11/24/21 07:50 Dose: Not Given Documented by: ESTELLA Non-Admin Reason: Patient Refused Oxymetazoline HCl (Oxymetazoline Hcl 0.05 % Nasal 15 Ml [place]) 2 spray NOSTRIL-B QID PRN PRN Reason: Nasal Congestion Pharmacy Consult (Consult Rx Perform Med Rec) 1 each MISCELLANE ONCE PRN PRN Reason: Consult order Polyethylene Glycol (Polyethylene Glycol 3350 17 Gm Powd.Pack) 17 gm PO DAILY PRN PRN Reason: Constipation Prednisone (Prednisone 20 Mg Tablet) 40 mg PO DAILY [facility] Last Admin: 11/24/21 07:49 Dose: 40 mg Documented by: ESTELLA Senna (Sennosides 8.6 Mg Tablet) 8.6 mg PO BEDTIME [facility] Last Admin: 11/23/21 20:49 Dose: 8.6 mg Documented by: EVELYN Triamcinolone Acetonide (Triamcinolone Acet 0.1 % Cream 15 Gm Tube) 1 appl TOPICAL BID [facility] Last Admin: 11/24/21 07:51 Dose: 1 appl Documented by: ESTELLA Vilazodone HCl (Vilazodone Hcl 20 Mg Tablet) 20 mg PO DAILY [facility] Last Admin: 11/24/21 07:50 Dose: 20 mg Documented by: ESTELLA Vitamin D (Cholecalciferol (Vitamin D3) 25 Mcg Tablet) 50 mcg PO DAILY [facility] Last Admin: 11/24/21 07:49 Dose: 50 mcg Documented by: ESTELLA Labs CBC & Chem 7: 11/23/21 06:47 11/23/21 06:47 Microbiology Microbiology Results: Microbiology 11/18/21 12:30 Blood Culture - Final Blood - Venous No growth after 5 days. 11/18/21 12:30 Blood Culture - Final Blood - Venous No growth after 5 days. Assessment and Plan (1) ILD (interstitial lung disease): Status: Acute (2) Acute and chronic respiratory failure with hypercapnia: Status: Acute Assessment and Plan: This is a 66 year old female with past medical history of end stage COPD with chronic hypoxic respiratory failure on 5L NC and 4hrs during the day & 8hrs QHS NIV (via [facility]) on diamox, hx tracheostomy s/p decannulation (placed 04/22/17), obesity, bipolar depression, limb swelling and eczema presents to the ED from assisted living apartment via EMS after being found down with her O2 off and unresponsive found to have hypercarbic respiratory failure downgraded from the ICU overnight Acute on chronic hypercarbic respiratory failure--improved continue baseline supplemental o2 with goal o2 of 88-92, bipap (4 hours during the day and overnight) continue diamox and Provigil change to oral prednisone Discussed with with Dr. Acharya, requesting pulmonary rehab Chronic (compensated) primary respiratory acidosis, with metabolic alkalosis Mood continue home meds HTN continue metoprolol Disposition.? Plan to transfer to pulmonary rehab when bed available dvt ppx - heparin Attending Dr. Gorman Quality Stroke Does the patient have a stroke diagnosis?: No VTE Prior VTE?: No VTE Risk Level:: Medical - low VTE Device Contraindication: N/A - Device Ordered VTE Drug Contraindication: N/A - Med Ordered
[2021-11-24] MEDS: Montelukast Sodium 10 MG TABLET PO (21:35)
[2021-11-24] MEDS: Gabapentin 300 MG CAPSULE PO (21:35)
[2021-11-24] MEDS: Mirtazapine 15 MG TABLET PO (21:36)
[2021-11-24] MEDS: lamoTRIgine 100 MG TABLET 300 MG PO (21:36)
[2021-11-24] MEDS: Sennosides 8.6 MG TABLET PO (21:36)
[2021-11-25] VITALS (14 sets, daily range): BP systolic 117–136; BP diastolic 58–64; PULSE 62–92; RESP 18–22; TEMP 36.1–37; O2SAT 90–100; BMI 30.5
[2021-11-25] MEDS: Acetaminophen 325 MG TABLET 650 MG PO (04:55)
[2021-11-25 06:27] LABS: Hematocrit 38.9 % (37.0-47.0); Hemoglobin 11.7 g/dl (12.0-16.0); Mean Corpuscular HGB Conc 30.1 g/dl (31.0-35.0); Mean Corpuscular Hemoglobin 28.6 pg (27.0-33.0); Mean Corpuscular Volume 95.1 fL (80.0-98.0); Mean Platelet Volume 8.6 fL (9.4-12.3); Platelet Count 503 X10*3/uL (160-400); Red Blood Count 4.09 X10*6/uL (4.20-5.50); Red Cell Distribution Width 14.2 % (11.0-16.0); White Blood Count 6.7 X10*3/uL (4.8-10.8)
[2021-11-25 07:12] LABS: Anion Gap 7 (12-20); Blood Urea Nitrogen 14 mg/dL (9-16); Calcium 9.2 mg/dL (8.4-10.2); Carbon Dioxide 41 mmol/L (22-29); Chloride 96 mmol/L (96-108); Creatinine Clr Calc Pharmacy 69.4; Estimated Glomerular Filt Rate > 60; Glucose Random 79 mg/dL (60-115); Potassium 4.2 mmol/L (3.3-5.1); Sodium 140 mmol/L (135-145)
[2021-11-25] MEDS: Albuterol/Iprat 2.5/0.5MG 3 ML AMPUL.NEB INHALE ×4 (07:20→19:40)
--- NOTE | 2021-11-25 09:32 | MHC.CM.PN ---
pt accepted at [facility] transfer set for today
--- NOTE | 2021-11-25 09:48 | P.DS_ITS ---
DS: Providers Provider Date of Service: 11/25/21 Date of admission: 11/18/21 20:27 Primary care physician: Erick Jade MD Attending physician on discharge: Serafin Gorman Discharging clinician: Martha Acharya DS: Diagnosis Discharge Diagnosis (1) ILD (interstitial lung disease): Status: Acute (2) Acute and chronic respiratory failure with hypercapnia: Status: Acute DS: Summary Hospital Course Hospital Course: 66 year old female with past medical history of end stage COPD with chronic hypoxic respiratory failure on 5L NC and 4hrs during the day & 8hrs QHS NIV (via [facility]) on diamox, hx tracheostomy s/p decannulation (placed 04/22/17), obesity, bipolar depression, limb swelling and eczema presents to the ED from assisted living apartment via EMS after being found down with her O2 off and unresponsive found to have hypercarbic respiratory failure and was admitted through the ICU where she required BiPAP and has improved. Syncope due to CO2 narcosis, resolved Acute on chronic hypercarbic respiratory failure--improved continue baseline supplemental o2 with goal o2 of 88-92, Continue Trilogy continue diamox and Provigil change to oral prednisone Discussed with with Dr. Acharya, discharging to pulmonary rehab Acute on chronic hypercarbic respiratory failure--treated with BiPAP and has improved. She is to continue baseline supplemental o2 with goal o2 of 88-92, continue diamox Trilogy Time Spent with Patient Time attestation: Total time spent providing and/or coordinating discharge services: Discharge coordination time: Greater than 30 minutes Quality: Stroke Does the patient have a stroke diagnosis?: No Physical Exam Vital Signs: Vital Signs: Last Vital Signs Temp 98 F 11/25/21 07:03 Pulse 64 11/25/21 07:22 Resp 18 11/25/21 07:22 BP 133/59 L 11/25/21 07:03 Pulse Ox 100 11/25/21 07:03 Oxygen Flow Rate 35 11/25/21 04:00 BMI result Body Mass Index 30.5 Appearing in no acute distress head is normocephalic atraumatic eyes pupils are PERRLA sclera is anicteric mouth throat mucous membranes are intact and moist neck is supple no lymphadenopathy, no JVD noted lung sounds diminished heart regular rate rhythm, clear S1, S2 positive bowel sounds, abdomen is soft, nontender neuro patient is alert x3, no focal deficits DS: Data Data Completed and Pending Completed studies during hospitalization [Text1]: Procedures Assistance with Respiratory Ventilation, Less than 24 Consecutive Hours, Continuous Positive Airway Pressure (10/05/21) Labs on day of discharge: Laboratory Results - last 24 hr 11/25/21 11/25/21 06:00 06:00 WBC 6.7 RBC 4.09 L Hgb 11.7 L Hct 38.9 MCV 95.1 MCH 28.6 MCHC 30.1 L RDW 14.2 Plt Count 503 H MPV 8.6 L Absolute Nucleated RBC 0.000 Nucleated RBC % (auto) 0.0 Sodium 140 Potassium 4.2 Chloride 96 Carbon Dioxide 41 H* Anion Gap 7 L BUN 14 Creatinine 0.75 Estim Creat Clear Calc 69.4 Estimated GFR > 60 Random Glucose 79 Calcium 9.2 Discharge Plan Discharge Anticipated Discharge Date/Time: 11/20/21 11:47 Patient Disposition: Xfer Inpatient Rehab Fac Discharge Diagnosis: Acute on chronic hypercarbic respiratory failure Chronic compensated primary respiratory acidosis Referrals: [facility] [Other] - 1 Week [facility] [Other] - 1 Week Erick Jade MD [Primary Care Provider] - 1 Week Discharge Medications: New prednisone 10 mg tablet See Taper mg PO DAILY Qty: 20 RF: 0 Continued aripiprazole [Abilify] 10 mg Tablet 10 mg PO DAILY RF: 0 acetaminophen 500 mg Tablet 1,000 mg PO TID PRN (Reason: Headache) RF: 0 aspirin 81 mg Tablet,Delayed Release (Dr/Ec) 81 mg PO DAILY RF: 0 Breo Ellipta 200-25 mcg/dose Blister With Device 1 inh INHALATION DAILY RF: 0 alendronate [Fosamax] 70 mg Tablet 70 mg PO QWEEK RF: 0 lamotrigine 150 mg Tablet 300 mg PO BEDTIME RF: 0 lamotrigine 200 mg Tablet 200 mg PO DAILY RF: 0 magnesium oxide 400 mg magnesium Tablet 400 mg PO BID RF: 0 montelukast 10 mg Tablet 10 mg PO BEDTIME RF: 0 multivitamin Tablet 1 tab PO DAILY RF: 0 albuterol sulfate [Proventil HFA] 90 mcg/actuation Hfa Aerosol Inhaler 2 puff INHALATION QID PRN (Reason: Respiratory Distress) RF: 0 selenium sulfide 1 % Shampoo 10 ml TOPICAL 2XW RF: 0 Viibryd 20 mg Tablet 20 mg PO DAILY RF: 0 cholecalciferol (vitamin D3) [Vitamin D3] 50 mcg (2,000 unit) Capsule 50 mcg PO DAILY RF: 0 Spiriva with HandiHaler 18 mcg Capsule, W/Inhalation Device 1 cap INHALATION DAILY RF: 0 mirtazapine 15 mg tablet 15 mg PO BEDTIME RF: 0 Cortisporin-TC 3.3-3-10-0.5 mg/mL Drops,Suspension 2 drp OTIC (EARS) QID RF: 0 Nicotrol 10 mg Cartridge 1 inh INHALATION Q2H PRN (Reason: Nicotine Cravings) RF: 0 gabapentin 300 mg Capsule 300 mg PO BEDTIME RF: 0 polyethylene glycol 3350 17 gram/dose Powder 17 g PO DAILY PRN (Reason: Constipation) RF: 0 oxymetazoline 0.05 % [place],Non-Aerosol 2 spray INTRANASAL QID PRN (Reason: Nasal Congestion) RF: 0 crisaborole 2 % Ointment 1 appl TOPICAL BID RF: 0 acetazolamide 250 mg tablet 250 mg PO DAILY RF: 0 betamethasone valerate 0.1 % Cream 1 appl TOPICAL BID RF: 0 metoprolol succinate 50 mg Tablet Extended Release 24 Hr 50 mg PO DAILY RF: 0 prednisone 10 mg Tablet 10 mg PO Q2D RF: 0 theophylline 300 mg tablet extended release 12 hr 300 mg PO Q12H 30 Days Qty: 60 RF: 5 ipratropium bromide 42 mcg (0.06 %) spray,non-aerosol 2 spray intranasal TID 30 Days Qty: 15 RF: 3 melatonin [Melatin] 3 mg tablet 6 mg PO BEDTIME PRN (Reason: sleep) 30 Days Qty: 60 RF: 4 ondansetron HCl [Zofran] 4 mg tablet 4 mg PO Q8H PRN (Reason: Nausea) RF: 0 sennosides [Senokot] 8.6 mg tablet 8.6 mg PO BEDTIME RF: 0 Diet: advance to usual diet Activity on Discharge: As tolerated Stand Alone Forms: Patient Portal Discharge page Care Plan Goals: prevent rehospitalization and stabilize chronic respiratory failure Health Concerns: Acute on chronic hypercarbic respiratory failure Chronic compensated primary respiratory acidosis Plan of Treatment: To continue use of home NIV ventilator with new seting of 11/05 at Rehabilitation site Gali martell to arrange pharmacy picking tech of your Trilogy at home to bring to Pulmonary rehabilitation Assessment: as above, see discharge summary
[2021-11-25] MEDS: Aspirin Enteric Coated 81 MG TABLET.DR PO (10:40)
[2021-11-25] MEDS: ARIPiprazole 10 MG TABLET PO (10:40)
[2021-11-25] MEDS: Cholecalciferol (Vitamin D3) 25 MCG TABLET 50 MCG PO (10:40)
[2021-11-25] MEDS: lamoTRIgine 100 MG TABLET 200 MG PO (10:40)
[2021-11-25] MEDS: predniSONE 20 MG TABLET 40 MG PO (10:41)
[2021-11-25] MEDS: acetaZOLAMIDE 250 MG TABLET PO (10:41)
[2021-11-25] MEDS: Magnesium Oxide 400 MG TABLET PO ×2 (10:42→21:16)
[2021-11-25] MEDS: Vilazodone HCL 20 MG TABLET PO (10:42)
[2021-11-25] MEDS: Multivitamin TABLET 1 TAB PO (10:43)
[2021-11-25] MEDS: modafiniL 100 MG TABLET PO (10:43)
[2021-11-25] MEDS: Metoprolol Succinate ER 50 MG TAB.ER.24H PO (10:43)
[2021-11-25] MEDS: Triamcinolone Acet 0.1 % Cream 15 GM TUBE 1 APPL TOPICAL ×2 (10:44→21:16)
[2021-11-25] MEDS: Heparin Sodium,Porcine 5,000 UNIT/ML VIAL 5000 UNIT SUBCUT ×2 (10:44→21:15)
[2021-11-25] MEDS: Ipratropium Bromide Nas 0.06 % 15 ML SPRAY 2 SPRAY NOSTRIL-B ×3 (10:47→21:16)
--- NOTE | 2021-11-25 13:46 | HO.PM.IMPN ---
Subjective Subjective Date of Service: 11/25/21 Review of Systems Follow-up respiratory failure with hypercapnia Doing well on BiPAP as needed sign denies chest pain, nausea, vomiting, diarrhea All other systems are reviewed and are negative Physical Exam Vital Signs: Vital Signs: Last Vital Signs Temp 97 F 11/25/21 10:50 Pulse 87 11/25/21 11:01 Resp 18 11/25/21 11:01 BP 127/63 11/25/21 10:50 Pulse Ox 90 L 11/25/21 10:50 Oxygen Flow Rate 35 11/25/21 04:00 BMI result Body Mass Index 30.5 Appearing in no acute distress lung sounds dim heart regular rate rhythm, clear S1, S2 positive bowel sounds, abdomen is soft, nontender neuro patient is alert x3, no focal deficits Objective Data Active Medications Acetaminophen (Acetaminophen 325 Mg Tablet) 650 mg PO Q4H PRN PRN Reason: pain and or fever Last Admin: 11/25/21 04:55 Dose: 650 mg Documented by: DESIREE Acetazolamide (Acetazolamide 250 Mg Tablet) 250 mg PO DAILY [facility] Last Admin: 11/25/21 10:41 Dose: 250 mg Documented by: LONNY Al Hydroxide/Mg Hydroxide (Magnesium Hydrox/Alum Hydrox 30 Ml Oral.Susp) 15 ml PO Q6H PRN PRN Reason: heartburn Albuterol Sulfate (Albuterol Sulfate 90 Mcg 8 Gm Inhaler) 2 puff INHALE QID PRN PRN Reason: Respiratory Distress Albuterol/Ipratropium (Albuterol/Iprat 2.5/0.5mg 3 Ml Ampul.Neb) 3 ml INHALE Q2H PRN PRN Reason: sob Albuterol/Ipratropium (Albuterol/Iprat 2.5/0.5mg 3 Ml Ampul.Neb) 3 ml INHALE RQ4H WHILE AWAKE [facility] Last Admin: 11/25/21 10:59 Dose: 3 ml Documented by: DOUG Aripiprazole (Aripiprazole 10 Mg Tablet) 10 mg PO DAILY [facility] [place] Last Admin: 11/25/21 10:40 Dose: 10 mg Documented by: LONNY Aspirin (Aspirin Enteric Coated 81 Mg Tablet.Dr) 81 mg PO DAILY [facility] [place] Last Admin: 11/25/21 10:40 Dose: 81 mg Documented by: LONNY Fluticasone/Vilanterol (Fluticasone/Vilanterol 200/25 Blst.W.Dev) 1 puff INHALE RDAILY [facility] [place] Last Admin: 11/25/21 07:23 Dose: Not Given Documented by: DOUG Non-Admin Reason: Med Not Available Gabapentin (Gabapentin 300 Mg Capsule) 300 mg PO BEDTIME [facility] Last Admin: 11/24/21 21:35 Dose: 300 mg Documented by: DESIREE Heparin Sodium (Porcine) (Heparin Sodium,Porcine 5,000 Unit/Ml Vial) 5,000 unit SUBCUT Q12H [facility] [place] Last Admin: 11/25/21 10:44 Dose: 5,000 unit Documented by: LONNY Ipratropium [place] (Ipratropium [place] 0.06 % 15 Ml [place]) 2 spray NOSTRIL-B TID [facility] [place] Last Admin: 11/25/21 10:47 Dose: 2 spray Documented by: LONNY Lamotrigine (Lamotrigine 100 Mg Tablet) 300 mg PO BEDTIME [facility] [place] Last Admin: 11/24/21 21:36 Dose: 300 mg Documented by: DESIREE Lamotrigine (Lamotrigine 100 Mg Tablet) 200 mg PO DAILY [facility] [place] Last Admin: 11/25/21 10:40 Dose: 200 mg Documented by: LONNY Magnesium Oxide (Magnesium Oxide 400 Mg Tablet) 400 mg PO BID [facility] [place] Last Admin: 11/25/21 10:42 Dose: 400 mg Documented by: LONNY Metoprolol Succinate (Metoprolol Succinate Er 50 Mg Tab.Er.24h) 50 mg PO DAILY [facility] [place]; Protocol Last Admin: 11/25/21 10:43 Dose: 50 mg Documented by: LONNY Mirtazapine (Mirtazapine 15 Mg Tablet) 15 mg PO BEDTIME [facility] [place] Last Admin: 11/24/21 21:36 Dose: 15 mg Documented by: DESIREE Modafinil (Modafinil 100 Mg Tablet) 100 mg PO DAILY [facility] [place] Last Admin: 11/25/21 10:43 Dose: 100 mg Documented by: LONNY Montelukast Sodium (Montelukast Sodium 10 Mg Tablet) 10 mg PO BEDTIME [facility] [place] Last Admin: 11/24/21 21:35 Dose: 10 mg Documented by: DESIREE Multivitamins/Vitamin C (Multivitamin Tablet) 1 tab PO DAILY [facility] [place] Last Admin: 11/25/21 10:43 Dose: 1 tab Documented by: LONNY Neomycin/Polymyxin/Hydrocortisone (Neomycin/Polymyxin/Hc Otic [place] Bottle) 2 drop EAR-BOTH QID [facility] [place] Last Admin: 11/25/21 12:54 Dose: Not Given Documented by: LONNY Non-Admin Reason: Patient Refused Oxymetazoline HCl (Oxymetazoline Hcl 0.05 % Nasal 15 Ml [place]) 2 spray NOSTRIL-B QID PRN PRN Reason: Nasal Congestion Pharmacy Consult (Consult Rx Perform Med Rec) 1 each MISCELLANE ONCE PRN PRN Reason: Consult order Polyethylene Glycol (Polyethylene Glycol 3350 17 Gm Powd.Pack) 17 gm PO DAILY PRN PRN Reason: Constipation Prednisone (Prednisone 20 Mg Tablet) 40 mg PO DAILY [facility] [place] Last Admin: 11/25/21 10:41 Dose: 40 mg Documented by: LONNY Senna (Sennosides 8.6 Mg Tablet) 8.6 mg PO BEDTIME [facility] [place] Last Admin: 11/24/21 21:36 Dose: 8.6 mg Documented by: DESIREE Triamcinolone Acetonide (Triamcinolone Acet 0.1 % Cream 15 Gm Tube) 1 appl TOPICAL BID [facility] [place] Last Admin: 11/25/21 10:44 Dose: 1 appl Documented by: LONNY Vilazodone HCl (Vilazodone Hcl 20 Mg Tablet) 20 mg PO DAILY [facility] [place] Last Admin: 11/25/21 10:42 Dose: 20 mg Documented by: LONNY Vitamin D (Cholecalciferol (Vitamin D3) 25 Mcg Tablet) 50 mcg PO DAILY [facility] [place] Last Admin: 11/25/21 10:40 Dose: 50 mcg Documented by: LONNY Labs CBC & Chem 7: 11/25/21 06:00 11/25/21 06:00 Labs: Laboratory Results - last 24 hr 11/25/21 11/25/21 06:00 06:00 MCV 95.1 MCH 28.6 MCHC 30.1 L RDW 14.2 Plt Count 503 H MPV 8.6 L Absolute Nucleated RBC 0.000 Nucleated RBC % (auto) 0.0 Anion Gap 7 L Estim Creat Clear Calc 69.4 Estimated GFR > 60 Random Glucose 79 Calcium 9.2 Assessment and Plan (1) Acute and chronic respiratory failure with hypercapnia: Status: Acute (2) COPD (chronic obstructive pulmonary disease): Status: Acute Assessment and Plan: This is a 66 year old female with past medical history of end stage COPD with chronic hypoxic respiratory failure on 5L NC and 4hrs during the day & 8hrs QHS NIV (via [facility]) on diamox, hx tracheostomy s/p decannulation (placed 04/22/17), obesity, bipolar depression, limb swelling and eczema presents to the ED from assisted living apartment via EMS after being found down with her O2 off and unresponsive found to have hypercarbic respiratory failure downgraded from the ICU overnight Acute on chronic hypercarbic respiratory failure--improved continue baseline supplemental o2 with goal o2 of 88-92, bipap (4 hours during the day and overnight) continue diamox and Provigil change to oral prednisone Discussed with with Dr. Acharya, requesting pulmonary rehab Chronic (compensated) primary respiratory acidosis, with metabolic alkalosis Mood continue home meds HTN continue metoprolol Disposition.? Plan to transfer to pulmonary rehab when bed available dvt ppx - heparin Attending Dr. Gorman Quality Stroke Does the patient have a stroke diagnosis?: No VTE Prior VTE?: No VTE Risk Level:: Medical - low VTE Device Contraindication: N/A - Device Ordered VTE Drug Contraindication: N/A - Med Ordered
[2021-11-25 18:16] LABS: COVID-19 Test Negative (Negative); IDNOW Serial# 08D9AD1C
[2021-11-25] MEDS: Montelukast Sodium 10 MG TABLET PO (21:16)
[2021-11-25] MEDS: Sennosides 8.6 MG TABLET PO (21:16)
[2021-11-25] MEDS: Gabapentin 300 MG CAPSULE PO (21:16)
[2021-11-25] MEDS: lamoTRIgine 100 MG TABLET 300 MG PO (21:16)
[2021-11-25] MEDS: Mirtazapine 15 MG TABLET PO (21:17)
[2021-11-26] VITALS (7 sets, daily range): BP systolic 128–158; BP diastolic 70–83; PULSE 62–76; RESP 12–20; TEMP 36.4–37; O2SAT 94–98
[2021-11-26] MEDS: Acetaminophen 325 MG TABLET 650 MG PO (01:44)
[2021-11-26] MEDS: Albuterol/Iprat 2.5/0.5MG 3 ML AMPUL.NEB INHALE (07:36)
[2021-11-26] MEDS: lamoTRIgine 100 MG TABLET 200 MG PO (07:55)
[2021-11-26] MEDS: predniSONE 20 MG TABLET 40 MG PO (07:55)
[2021-11-26] MEDS: acetaZOLAMIDE 250 MG TABLET PO (07:55)
[2021-11-26] MEDS: Vilazodone HCL 20 MG TABLET PO (07:55)
[2021-11-26] MEDS: ARIPiprazole 10 MG TABLET PO (07:55)
[2021-11-26] MEDS: Aspirin Enteric Coated 81 MG TABLET.DR PO (07:55)
[2021-11-26] MEDS: Cholecalciferol (Vitamin D3) 25 MCG TABLET 50 MCG PO (07:55)
[2021-11-26] MEDS: Multivitamin TABLET 1 TAB PO (07:56)
[2021-11-26] MEDS: Metoprolol Succinate ER 50 MG TAB.ER.24H PO (07:56)
[2021-11-26] MEDS: Magnesium Oxide 400 MG TABLET PO (07:56)
[2021-11-26] MEDS: modafiniL 100 MG TABLET PO (07:56)
[2021-11-26] MEDS: Ipratropium Bromide Nas 0.06 % 15 ML SPRAY 2 SPRAY NOSTRIL-B (07:57)
[2021-11-26] MEDS: Triamcinolone Acet 0.1 % Cream 15 GM TUBE 1 APPL TOPICAL (07:57)
[2021-11-26] MEDS: Heparin Sodium,Porcine 5,000 UNIT/ML VIAL 5000 UNIT SUBCUT (09:08)
[2021-11-26] MEDS: Fluticasone/Vilanterol 200/25 BLST.W.DEV 1 PUFF INHALE (11:19)
--- NOTE | 2021-11-26 13:32 | MHC.CM.PN ---
IMM 11/26/21 Female 66 COPD exacerbation. She is discharged today to [facility]. [facility] sent a van for transportation to the facility. All discharge info has been sent.
--- NOTE | 2021-11-26 14:48 | MHC.CM.PN ---
DC Summary was successfully faxed to Gali Moran/Viki White @ [phone].
== END 2021-11-26 12:03 | DRG 190 ==
LOC: HO.ED 19:38 → HO.EDOVER 20:44 → HO.ICU 23:50 → HO.IMC 11-19 01:17
PROVIDERS: Internal Medicine; Nurse Practitioner Acute Care; Admitting Provider Physician Assistant; Emergency Provider Emergency Medicine; PCP Internal Medicine Rheumatology; Visit Provider Physician Assistant Medical
DX: J44.1 Chronic obstructive pulmonary disease with (acute) exacerbation (principal); J96.22 Acute and chronic respiratory failure with hypercapnia; E87.4 Mixed disorder of acid-base balance; I10 Essential (primary) hypertension; E66.9 Obesity, unspecified; Z68.30 Body mass index [BMI] 30.0-30.9, adult; F32.A Depression, unspecified; L30.9 Dermatitis, unspecified; Z20.822 Contact with and (suspected) exposure to COVID-19; Z99.81 Dependence on supplemental oxygen; Z88.2 Allergy status to sulfonamides; Z88.5 Allergy status to narcotic agent; Z79.82 Long term (current) use of aspirin; Z79.899 Other long term (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 therapy
CPT/HCPCS: 0241U; 36415; 70450; 71045; 72125; 80048; 80053; 82140; 82550; 82803; 82947; 83605; 83735; 83880; 84100; 84146; 84443; 84484; 85025; 85027; 85379; 85610; 87040; 87635; 93005; 94640; 94644; 94660; 96361; 96365; 96366; 96367; 96375; 97110; 97116; 97162; 99285; 99291; 99292; J0456; J0696; J2930

== ENCOUNTER → 2021-12-24 10:44 | Outpatient (BNVA) | payer OTHER, MEDICAID, SELFPAY | PROVIDERS: PCP Internal Medicine Rheumatology; Visit Provider Hospitalist | DX: J44.9 Chronic obstructive pulmonary disease, unspecified (principal); J96.10 Chronic respiratory failure, unspecified whether with hypoxia or hypercapnia; J30.0 Vasomotor rhinitis; G47.00 Insomnia, unspecified; U07.1 COVID-19 | CPT/HCPCS: Q3014 ==

== ENCOUNTER 2022-01-07 14:13 | Outpatient (REF) | payer OTHER, SELFPAY ==
[2022-01-07 15:25] LABS: Venous Blood Gas Refer to POC result
[2022-01-07 15:27] LABS: VBG pCO2 73 mmHg; VBG pO2 121 mmHg
[2022-01-07 15:28] LABS: VBG Base Excess 17.5 mmol/L; VBG HCO3 46 mmol/L (22-26)
[2022-01-07 15:34] LABS: D Dimer High Sensitivity 221 NG/ML
[2022-01-07 15:43] LABS: Anion Gap 10 (12-20); Blood Urea Nitrogen 18 mg/dL (9-16); Carbon Dioxide 38 mmol/L (22-29); Chloride 97 mmol/L (96-108); Estimated Glomerular Filt Rate > 60; Glucose Random 100 mg/dL (60-115); Potassium 4.6 mmol/L (3.3-5.1); Sodium 140 mmol/L (135-145)
[2022-01-07 16:26] LABS: Erythrocyte Sedimentation Rate 9 MM/HR (0-20)
== END 2022-01-07 14:14 | disposition home or self-care (01) ==
LOC: HO.LAB 14:13
PROVIDERS: PCP Internal Medicine Rheumatology; Visit Provider Hospitalist
DX: J44.9 Chronic obstructive pulmonary disease, unspecified (principal); J96.11 Chronic respiratory failure with hypoxia; J96.12 Chronic respiratory failure with hypercapnia; J30.0 Vasomotor rhinitis; G47.00 Insomnia, unspecified; J18.0 Bronchopneumonia, unspecified organism; R07.9 Chest pain, unspecified; U07.1 COVID-19; Z87.891 Personal history of nicotine dependence
CPT/HCPCS: 36415; 80048; 82803; 85379; 85652; 99212

== ENCOUNTER → 2022-01-25 14:13 | Outpatient (BNVA) | payer OTHER, SELFPAY | PROVIDERS: PCP Internal Medicine Rheumatology; Visit Provider Hospitalist | DX: J18.0 Bronchopneumonia, unspecified organism (principal); J96.10 Chronic respiratory failure, unspecified whether with hypoxia or hypercapnia; J30.0 Vasomotor rhinitis; G47.00 Insomnia, unspecified; Z79.52 Long term (current) use of systemic steroids; Z79.899 Other long term (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 therapy; Z99.81 Dependence on supplemental oxygen | CPT/HCPCS: 99212 ==

== ENCOUNTER 2022-03-01 13:36 | Outpatient (REF) | payer OTHER, SELFPAY ==
[2022-03-01 13:57] LABS: Venous Blood Gas Refer to POC result
[2022-03-01 13:58] LABS: VBG Base Excess 13.9 mmol/L; VBG HCO3 46 mmol/L (22-26); VBG pCO2 102 mmHg; VBG pO2 54 mmHg
[2022-03-01 13:59] LABS: VBG pH 7.25 (7.32-7.43)
== END 2022-03-01 13:37 | disposition home or self-care (01) ==
LOC: HO.LAB 13:36
PROVIDERS: PCP Internal Medicine Rheumatology; Visit Provider Hospitalist
DX: J44.9 Chronic obstructive pulmonary disease, unspecified (principal); J96.22 Acute and chronic respiratory failure with hypercapnia; R41.82 Altered mental status, unspecified; J30.0 Vasomotor rhinitis; G47.00 Insomnia, unspecified; Z79.899 Other long term (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 therapy; Z99.81 Dependence on supplemental oxygen
CPT/HCPCS: 36415; 82803; 99212

== ENCOUNTER 2022-03-01 14:32 | Inpatient (IN) | payer OTHER, SELFPAY ==
[2022-03-01] VITALS (10 sets, daily range): BP systolic 125–144; BP diastolic 55–80; PULSE 62–88; RESP 13–27; TEMP 37.1; O2SAT 91–100; BMI 29.2
--- NOTE | ~2022-03-01 | CT_ITS ---
EXAMINATION: CT CHEST WITHOUT CONTRAST CLINICAL INFORMATION: hypercarbic respiratory failure COMPARISON: Chest radiograph 11/18/2021 CT chest 04/22/2017 TECHNIQUE: Multidetector volumetric CT imaging of the chest was done. Axial MIP volume rendering provided. Sagittal and coronal reformatted images were obtained. This CT examination was performed using dose optimization techniques as appropriate, variously including the following: *Automated exposure control *Adjustment of mA and/or kV according to patient size (this includes techniques or standardized protocols for targeted exams where dose is matched to indication/reason for exam; i.e. extremities or head) *Use of iterative reconstruction technique DLP: 240 mGy-cm FINDINGS: LUNGS: Severe bullous emphysematous changes are present throughout the lungs. MEDIASTINUM: Some small mediastinal lymph nodes are present, most likely reactive, the largest right precarinal measuring 8 mm. No mediastinal or hilar lymphadenopathy. Heart size normal. Coronary calcifications are seen. The main pulmonary artery measures 3.7 cm which may be indicative of pulmonary hypertension. In 2017, maximal diameter was under 3 cm. PLEURA: There is no pleural effusion. No pleural mass or thickening. AXILLA: No lymphadenopathy. UPPER ABDOMEN: Unremarkable. OSSEOUS STRUCTURES: Degenerative changes are present. A compression fracture involving most likely L1 appears stable with a new compression fracture involving L2. CT/CT chest wo con IMPRESSION: Severe COPD with bullous changes throughout the lungs. Dilated pulmonary artery suggestive of pulmonary hypertension. Fleischner guidelines were followed.
--- NOTE | 2022-03-01 15:20 | ED_ITS ---
HPI - Recheck/Abnormal Lab/Rx General Chief Complaint: Recheck/Abnormal Lab/Rx <RAYSHAWN Hanna - Last Filed: 03/01/22 17:41> Stated Complaint: Elevated Co2 <RAYSHAWN Hanna - Last Filed: 03/01/22 17:41> Time Seen by Provider: 03/01/22 15:07 <RAYSHAWN Hanna - Last Filed: 03/01/22 17:41> Source: patient <RAYSHAWN Hanna - Last Filed: 03/01/22 17:41> Mode of arrival: ambulatory <RAYSHAWN Hanna Last Filed: 03/01/22 17:41> Limitations: no limitations <RAYSHAWN Hanna Last Filed: 03/01/22 17:41> History of Present Illness HPI narrative: 66-year-old female with history of end stage COPD, ILD, chronic hypoxic and hypercarbic respiratory failure on 3 L nasal cannula and non-invasive ventilator at night (Trilogy) with 5 L O2, on chronic diamox, history of tracheostomy 2017 s/p decannulation, who presents to the ER from the Pulmonary office with acute on chronic respiratory acidosis on VBG done in the office. She was seeing Dr. Toro for follow up today when she reported recurrent falls at home at the end of last week. She feels somewhat more tired and weak than usual. She states her breathing feels fine at rest but when she walks and exerts herself she gets much more SOB than usual. She has been compliant with her Triology at night 8-10 hours and then she tries to use it during the day when she naps as well for a goal of 10-12 hours per day. She reports some productive cough which is her baseline. No fever, chills, or known sick contacts. <RAYSHAWN Hanna - Last Filed: 03/01/22 17:41> MD complaint: abnormal lab <RAYSHAWN Hanna - Last Filed: 03/01/22 17:41> Initial visit for: other <RAYSHAWN Hanna Last Filed: 03/01/22 17:41> Description of abnormal result: PCO 102 <RAYSHAWN Hanna Last Filed: 03/01/22 17:41> Associated symptoms: shortness of breath <RAYSHAWN Hanna - Last Filed: 03/01/22 17:41> Related Data Home Medications: Home Medications Medication Instructions Recorded Confirmed acetaminophen 500 mg tablet 1,000 mg PO TID PRN 02/09/21 12/24/21 albuterol sulfate 90 mcg/actuation 2 puff INHALATION QID PRN 02/09/21 12/24/21 aerosol inhaler (Proventil HFA) alendronate 70 mg tablet (Fosamax) 70 mg PO QWEEK 02/09/21 12/24/21 aripiprazole 10 mg tablet (Abilify) 10 mg PO DAILY 02/09/21 12/24/21 aspirin 81 mg tablet,delayed 81 mg PO DAILY 02/09/21 12/24/21 release cholecalciferol (vitamin D3) 50 50 mcg PO DAILY 02/09/21 12/24/21 mcg (2,000 unit) capsule (Vitamin D3) fluticasone furoate 200 1 inh INHALATION DAILY 02/09/21 12/24/21 mcg-vilanterol 25 mcg/dose inhalation powder (Breo Ellipta) lamotrigine 150 mg tablet 300 mg PO BEDTIME 02/09/21 12/24/21 lamotrigine 200 mg tablet 200 mg PO DAILY 02/09/21 12/24/21 magnesium oxide 400 mg PO BID 02/09/21 12/24/21 montelukast 10 mg tablet 10 mg PO BEDTIME 02/09/21 12/24/21 multivitamin 1 tab PO DAILY 02/09/21 12/24/21 selenium sulfide 1 % shampoo 10 ml TOPICAL 2XW 02/09/21 12/24/21 tiotropium bromide 18 mcg capsule 1 cap INHALATION DAILY 02/09/21 12/24/21 with inhalation device (Spiriva with HandiHaler) vilazodone 20 mg tablet (Viibryd) 20 mg PO DAILY 02/09/21 12/24/21 mirtazapine 15 mg tablet 15 mg PO BEDTIME 09/10/21 12/24/21 ondansetron HCl 4 mg tablet 4 mg PO Q8H PRN 09/10/21 12/24/21 (Zofran) sennosides 8.6 mg tablet (Senokot) 8.6 mg PO BEDTIME 09/10/21 12/24/21 crisaborole 2 % topical ointment 1 appl TOPICAL BID 10/05/21 12/24/21 gabapentin 300 mg capsule 300 mg PO BEDTIME 10/05/21 12/24/21 [id number] 3.3 2 drp OTIC (EARS) QID 10/05/21 12/24/21 mg-3 mg-10 mg-0.5 mg/mL ear drops,susp (Cortisporin-TC) oxymetazoline 0.05 % nasal spray 2 spray INTRANASAL QID PRN 10/05/21 12/24/21 polyethylene glycol 3350 17 17 g PO DAILY PRN 10/05/21 12/24/21 gram/dose oral powder acetazolamide 250 mg tablet 250 mg PO DAILY 11/18/21 12/24/21 betamethasone valerate 0.1 % 1 appl TOPICAL BID 11/18/21 12/24/21 topical cream metoprolol succinate 50 mg 50 mg PO DAILY 11/18/21 12/24/21 tablet,extended release 24 hr Previous Rx's Medication Instructions Recorded ipratropium bromide 42 mcg (0.06 2 spray INTRANASAL TID 30 Days #15 05/12/21 %) nasal spray ml theophylline 300 mg 300 mg PO Q12H 30 Days #60 tab 05/12/21 tablet,extended release,12 hr benzonatate 200 mg capsule 200 mg PO BID PRN 30 Days #60 cap 12/24/21 doxycycline hyclate 100 mg capsule 100 mg PO BID 10 Days #20 cap 12/24/21 amoxicillin 875 mg-potassium 1 tab PO BID 10 Days #20 tab 01/07/22 clavulanate 125 mg tablet prednisone 10 mg tablet 10 mg PO DAILY 30 Days #30 tab 01/07/22 <RAYSHAWN Hanna - Last Filed: 03/01/22 17:41> Allergies/Adverse Reactions: Allergies Allergy/AdvReac Type Severity Reaction Status Date / Time codeine [Codeine] Allergy Intermediate RESTLESS/RA Verified 03/01/22 14:56 SH haloperidol [Haldol] Allergy Intermediate Palpitation Verified 03/01/22 14:56 s Sulfa (Sulfonamide Allergy Intermediate HIVES Verified 03/01/22 14:56 Antibiotics) <RAYSHAWN Hanna - Last Filed: 03/01/22 17:41> Review of Systems Review of Systems: Constitutional: No Fever, No Chills ENT/Mouth: No sore throat, No Rhinorrhea, No Swallowing Difficulty Eyes: No Eye Pain, No Swelling, No Redness Cardiovascular: No Chest Pain, No SOB, No Orthopnea, No Edema Respiratory: + Cough, + Sputum, No Wheezing, + dyspnea Gastrointestinal: No Nausea, No Vomiting, No Diarrhea, No abdominal Pain, No Hematochezia, No Melena Genitourinary: No Dysuria, No Urinary Frequency, No Hematuria Musculoskeletal: No joint pain, No Myalgias Skin: No Skin Lesions, No rash Neuro: + Weakness, No Numbness, No Dizziness, No Headache Psych: No Anxiety/Panic, No Depression Heme/Lymph: No Bruising, No Lymphadenopathy Endocrine: No Polyuria, No Polydipsia <RAYSHAWN Hanna Last Filed: 03/01/22 17:41> [facility] Past Medical History Medical History: Medical History (Updated 03/01/22 @ 17:41 by RAYSHAWN Hanna) Acute and chronic respiratory failure with hypercapnia Acute metabolic encephalopathy Acute on chronic respiratory failure with hypoxia and hypercapnia Bipolar depression Bronchitis Bronchopneumonia Chest pain Chronic respiratory alkalosis Chronic respiratory failure CO2 retention COPD (chronic obstructive pulmonary disease) Eczema Fall ILD (interstitial lung disease) Insomnia Limb swelling Osteopenia (~2012) Tubular adenoma of colon (~2006) Vasomotor rhinitis <RAYSHAWN Hanna Last Filed: 03/01/22 17:41> Surgical History: Surgical History (Updated 03/01/22 @ 11:05 by Odalis Hilliard PA-C) History of carpal tunnel surgery (~2000) History of cataract surgery (~2018) History of colonoscopy History of left inguinal hernia repair (~1995) History of tracheostomy (~2016) History of ventral hernia repair (~2003) <RAYSHAWN Hanna Last Filed: 03/01/22 17:41> Family History Family History: Family History Other Hypertension <RAYSHAWN Hanna Last Filed: 03/01/22 17:41> Social History Social History: Social History Household Members: None Housing: Assisted Living Facility Housing Other:: person comes to do housework. Do you presently have visiting nurse or other home services: No Alcohol intake: unknown Patient Tobacco Use Status: Former Tobacco user Quit Date: 2018 Tobacco use type: Cigarette Years Smoked: 20+ years Smoked in Last 30 Days: No e-Cigarette/Vaping Use: Never Used Second Hand Smoke Exposure: No Advance Directives: Yes Advance Directives on File: Yes Advance Directives Date on File: 11/30/21 service: No Current occupational status: disabled <RAYSHAWN Hanna - Last Filed: 03/01/22 17:41> Physical Exam Vital Signs: Vital Signs: Last Vital Signs Temp 98.7 F 03/01/22 14:54 Pulse 70 03/01/22 18:00 Resp 13 03/01/22 18:00 BP 125/58 L 03/01/22 18:00 Pulse Ox 91 L 03/01/22 18:00 Oxygen Flow Rate 3 03/01/22 14:54 BMI result Body Mass Index 29.2 <RAYSHAWN Hanna - Last Filed: 03/01/22 17:41> Vital Signs: Last Vital Signs Temp 98.7 F 03/01/22 14:54 Pulse 70 03/01/22 18:00 Resp 13 03/01/22 18:00 BP 125/58 L 03/01/22 18:00 Pulse Ox 91 L 03/01/22 18:00 Oxygen Flow Rate 3 03/01/22 14:54 BMI result Body Mass Index 29.2 <RAYSHAWN Olson - Last Filed: 03/01/22 19:21> Appearance: Alert. Oriented X3. Appears older than stated age. Eyes: Pupils equal, round and reactive to light. ENT: Pharynx normal. Neck: Normal inspection. Neck supple. CVS: Normal heart rate and rhythm. Pulses normal. Respiratory: No respiratory distress. Breath sounds coarse throughout L>R with diminished LS at the bases bilaterally. Abdomen: Soft and nontender. +BS x4 Skin: Skin warm and dry. Normal skin color. Normal skin turgor. No rashes. Extremities: No lower extremity edema. Neuro: Oriented X 3. No motor deficit. No sensory deficit. Ambulates with steady gait <RAYSHAWN Hanna - Last Filed: 03/01/22 17:41> Course Course Course Narrative: 66 y/o female with history of end stage COPD, chronic hypoxic and hypercarbic respiratory failure on 3L NC at baseline and Triology vent at night who presents from Pulm office with acute on chronic respiratory acidosis. Unclear etiology as she has been compliant with her non-invasive ventilator, pulm meds. Does not appear to be volume overloaded. Productive cough is at her baseline. Will check basic labs to assess her bicarb and kidney function, BNP, CBC and CT chest to look for infection. FiO2 decreased from 3L to 1L NC, becuase her SpO2 was 100% on arrival. SpO2 on 1L 93-94%. Repeat ABG and will follow up with Dr. Acharya <RAYSHAWN Hanna - Last Filed: 03/01/22 17:41> Reevaluation(s) Reevaluation #1: ABG slightly improved with decreasing her FiO2 - 7.29 with PCO2 [address]. [address] on BiPAP now to help further correct her resp acidosis - AVAPS with TV 600 (increased 20% from her baseline 500cc on her Triology). Repeat ABG in 1 hour. Case was discussed with Dr. Acharya - recommending BiPAP. RT to touch base with her [employer]. She had recent adjustments to her settings per Dr. Acharya. Case also discussed with Dr. Meredith who evaluated the patient and her CT scan - minor tree in bud opacities recommending bronchodilators, dose of doxycycline and prednisone. will plan to admit to [facility] for nocturnal AVAPS and Pulmonary follow up tomorrow. <RAYSHAWN Hanna - Last Filed: 03/01/22 17:41> Reevaluation #2: - repeat ABG pH 7.[address] Cardenas accepted admission at this time. <RAYSHAWN Olson - Last Filed: 03/01/22 19:21> Time: 19:20 <RAYSHAWN Olson - Last Filed: 03/01/22 19:21> MDM - Recheck/Abnormal Lab/Rx Medical Records Attestation: I reviewed the patient's medical records. <RAYSHAWN Hanna - Last Filed: 03/01/22 17:41> Lab Data Attestation: I reviewed the patient's lab results. <RAYSHAWN Hanna - Last Filed: 03/01/22 17:41> Result diagrams: : 03/01/22 16:22 03/01/22 16:22 <RAYSHAWN Hanna - Last Filed: 03/01/22 17:41> Labs: Lab Results 03/01/22 03/01/22 03/01/22 Range/Units 15:31 16:12 16:22 WBC 6.3 (4.8-10.8) X10*3/uL RBC 4.13 L (4.20-5.50) X10*6/uL Hgb 11.8 L (12.0-16.0) g/dl Hct 40.5 (37.0-47.0) % MCV 98.1 H (80.0-98.0) fL MCH 28.6 (27.0-33.0) pg MCHC 29.1 L (31.0-35.0) g/dl RDW 16.2 H (11.0-16.0) % Plt Count 354 D (160-400) X10*3/uL MPV 8.9 L (9.4-12.3) fL Immature Gran % (Auto) 0.3 (0.0-0.4) % Neut % (Auto) 79.6 H (45-73) % Lymph % (Auto) 9.6 L (20-40) % [place] % (Auto) 8.8 (2-11) % Eos % (Auto) 1.1 (0-4) % Baso % (Auto) 0.6 (0-2) % Lymph # (Auto) 0.6 L (1.2-4.9) X10*3/uL [place] # (Auto) 0.6 (0.1-1.2) X10*3/uL Eos # (Auto) 0.1 (0.0-0.4) X10*3/uL Baso # (Auto) 0.0 (0.0-0.2) X10*3/uL Abs Immat Gran (auto) 0.02 (0.00-0.03) X10*3/uL Absolute Neuts (auto) 5.0 (2.0-8.3) x10*3/uL Absolute Nucleated RBC 0.000 (0.0-0.012) X10*3/uL Nucleated RBC % (auto) 0.0 (0.0-0.2) /100WBC O2 Saturation 96.0 % ABG pH at Pt Temp 7.29 L (7.35-7.45) ABG pCO2 at Pt Temp 90 H* (32-45) mmHg ABG pO2 at Pt Temp 85 (83-108) mmHg ABG HCO3 44 H (22-26) mmol/L ABG Base Excess (Actual) 13.4 mmol/L Sodium (135-145) mmol/L Potassium (3.3-5.1) mmol/L Chloride (96-108) mmol/L Carbon Dioxide (22-29) mmol/L Anion Gap (12-20) BUN (9-16) mg/dL Creatinine (0.5-1.4) mg/dL Estim Creat Clear Calc Estimated GFR Random Glucose (60-115) mg/dL Calcium (8.4-10.2) mg/dL Magnesium (1.6-2.6) mg/dL Total Bilirubin (0.0-1.0) mg/dL Direct Bilirubin (0.0-0.5) mg/dL AST (5-31) U/L ALT (0-31) U/L Alkaline Phosphatase (39-117) U/L B-Natriuretic Peptide (<100) pg/mL Total Protein (6.5-8.0) g/dL Albumin (3.5-5.0) g/dL COVID-19 (EDU) Negative (Negative) COVID-19 Clin Com See Note 03/01/22 03/01/22 03/01/22 Range/Units 16:22 16:22 18:18 WBC (4.8-10.8) X10*3/uL RBC (4.20-5.50) X10*6/uL Hgb (12.0-16.0) g/dl Hct (37.0-47.0) % MCV (80.0-98.0) fL MCH (27.0-33.0) pg MCHC (31.0-35.0) g/dl RDW (11.0-16.0) % Plt Count (160-400) X10*3/uL MPV (9.4-12.3) fL Immature Gran % (Auto) (0.0-0.4) % Neut % (Auto) (45-73) % Lymph % (Auto) (20-40) % [place] % (Auto) (2-11) % Eos % (Auto) (0-4) % Baso % (Auto) (0-2) % Lymph # (Auto) (1.2-4.9) X10*3/uL [place] # (Auto) (0.1-1.2) X10*3/uL Eos # (Auto) (0.0-0.4) X10*3/uL Baso # (Auto) (0.0-0.2) X10*3/uL Abs Immat Gran (auto) (0.00-0.03) X10*3/uL Absolute Neuts (auto) (2.0-8.3) x10*3/uL Absolute Nucleated RBC (0.0-0.012) X10*3/uL Nucleated RBC % (auto) (0.0-0.2) /100WBC O2 Saturation 93.0 % ABG pH at Pt Temp 7.33 L (7.35-7.45) ABG pCO2 at Pt Temp 80 H* (32-45) mmHg ABG pO2 at Pt Temp 70 L (83-108) mmHg ABG HCO3 43 H (22-26) mmol/L ABG Base Excess (Actual) 13.5 mmol/L Sodium 144 (135-145) mmol/L Potassium 4.2 (3.3-5.1) mmol/L Chloride 98 (96-108) mmol/L Carbon Dioxide 42 H* (22-29) mmol/L Anion Gap 8 L (12-20) BUN 12 (9-16) mg/dL Creatinine 1.05 (0.5-1.4) mg/dL Estim Creat Clear Calc 48.5 Estimated GFR 52 Random Glucose 97 (60-115) mg/dL Calcium 9.5 (8.4-10.2) mg/dL Magnesium 2.2 (1.6-2.6) mg/dL Total Bilirubin 0.2 (0.0-1.0) mg/dL Direct Bilirubin < 0.2 (0.0-0.5) mg/dL AST 21 (5-31) U/L ALT 18 (0-31) U/L Alkaline Phosphatase 59 D (39-117) U/L B-Natriuretic Peptide 60 (<100) pg/mL Total Protein 6.9 (6.5-8.0) g/dL Albumin 4.3 (3.5-5.0) g/dL COVID-19 (EDU) (Negative) COVID-19 Clin Com <RAYSHAWN Hanna - Last Filed: 03/01/22 17:41> Lab Results 03/01/22 03/01/22 03/01/22 Range/Units 15:31 16:12 16:22 WBC 6.3 (4.8-10.8) X10*3/uL RBC 4.13 L (4.20-5.50) X10*6/uL Hgb 11.8 L (12.0-16.0) g/dl Hct 40.5 (37.0-47.0) % MCV 98.1 H (80.0-98.0) fL MCH 28.6 (27.0-33.0) pg MCHC 29.1 L (31.0-35.0) g/dl RDW 16.2 H (11.0-16.0) % Plt Count 354 D (160-400) X10*3/uL MPV 8.9 L (9.4-12.3) fL Immature Gran % (Auto) 0.3 (0.0-0.4) % Neut % (Auto) 79.6 H (45-73) % Lymph % (Auto) 9.6 L (20-40) % [place] % (Auto) 8.8 (2-11) % Eos % (Auto) 1.1 (0-4) % Baso % (Auto) 0.6 (0-2) % Lymph # (Auto) 0.6 L (1.2-4.9) X10*3/uL [place] # (Auto) 0.6 (0.1-1.2) X10*3/uL Eos # (Auto) 0.1 (0.0-0.4) X10*3/uL Baso # (Auto) 0.0 (0.0-0.2) X10*3/uL Abs Immat Gran (auto) 0.02 (0.00-0.03) X10*3/uL Absolute Neuts (auto) 5.0 (2.0-8.3) x10*3/uL Absolute Nucleated RBC 0.000 (0.0-0.012) X10*3/uL Nucleated RBC % (auto) 0.0 (0.0-0.2) /100WBC O2 Saturation 96.0 % ABG pH at Pt Temp 7.29 L (7.35-7.45) ABG pCO2 at Pt Temp 90 H* (32-45) mmHg ABG pO2 at Pt Temp 85 (83-108) mmHg ABG HCO3 44 H (22-26) mmol/L ABG Base Excess (Actual) 13.4 mmol/L Sodium (135-145) mmol/L Potassium (3.3-5.1) mmol/L Chloride (96-108) mmol/L Carbon Dioxide (22-29) mmol/L Anion Gap (12-20) BUN (9-16) mg/dL Creatinine (0.5-1.4) mg/dL Estim Creat Clear Calc Estimated GFR Random Glucose (60-115) mg/dL Calcium (8.4-10.2) mg/dL Magnesium (1.6-2.6) mg/dL Total Bilirubin (0.0-1.0) mg/dL Direct Bilirubin (0.0-0.5) mg/dL AST (5-31) U/L ALT (0-31) U/L Alkaline Phosphatase (39-117) U/L B-Natriuretic Peptide (<100) pg/mL Total Protein (6.5-8.0) g/dL Albumin (3.5-5.0) g/dL COVID-19 (EDU) Negative (Negative) COVID-19 Clin Com See Note 03/01/22 03/01/22 03/01/22 Range/Units 16:22 16:22 18:18 WBC (4.8-10.8) X10*3/uL RBC (4.20-5.50) X10*6/uL Hgb (12.0-16.0) g/dl Hct (37.0-47.0) % MCV (80.0-98.0) fL MCH (27.0-33.0) pg MCHC (31.0-35.0) g/dl RDW (11.0-16.0) % Plt Count (160-400) X10*3/uL MPV (9.4-12.3) fL Immature Gran % (Auto) (0.0-0.4) % Neut % (Auto) (45-73) % Lymph % (Auto) (20-40) % [place] % (Auto) (2-11) % Eos % (Auto) (0-4) % Baso % (Auto) (0-2) % Lymph # (Auto) (1.2-4.9) X10*3/uL [place] # (Auto) (0.1-1.2) X10*3/uL Eos # (Auto) (0.0-0.4) X10*3/uL Baso # (Auto) (0.0-0.2) X10*3/uL Abs Immat Gran (auto) (0.00-0.03) X10*3/uL Absolute Neuts (auto) (2.0-8.3) x10*3/uL Absolute Nucleated RBC (0.0-0.012) X10*3/uL Nucleated RBC % (auto) (0.0-0.2) /100WBC O2 Saturation 93.0 % ABG pH at Pt Temp 7.33 L (7.35-7.45) ABG pCO2 at Pt Temp 80 H* (32-45) mmHg ABG pO2 at Pt Temp 70 L (83-108) mmHg ABG HCO3 43 H (22-26) mmol/L ABG Base Excess (Actual) 13.5 mmol/L Sodium 144 (135-145) mmol/L Potassium 4.2 (3.3-5.1) mmol/L Chloride 98 (96-108) mmol/L Carbon Dioxide 42 H* (22-29) mmol/L Anion Gap 8 L (12-20) BUN 12 (9-16) mg/dL Creatinine 1.05 (0.5-1.4) mg/dL Estim Creat Clear Calc 48.5 Estimated GFR 52 Random Glucose 97 (60-115) mg/dL Calcium 9.5 (8.4-10.2) mg/dL Magnesium 2.2 (1.6-2.6) mg/dL Total Bilirubin 0.2 (0.0-1.0) mg/dL Direct Bilirubin < 0.2 (0.0-0.5) mg/dL AST 21 (5-31) U/L ALT 18 (0-31) U/L Alkaline Phosphatase 59 D (39-117) U/L B-Natriuretic Peptide 60 (<100) pg/mL Total Protein 6.9 (6.5-8.0) g/dL Albumin 4.3 (3.5-5.0) g/dL COVID-19 (EDU) (Negative) COVID-19 Clin Com <RAYSHAWN Olson - Last Filed: 03/01/22 19:21> Procedures ABG Interpretation ABG Interpretation 1: ABG Results: 7.//85/44 <RAYSHAWN Hanna - Last Filed: 03/01/22 17:41> Interpretation: abnormal and respiratory acidosis <RAYSHAWN Hanna Last Filed: 03/01/22 17:41> Critical Care Time Critical Care Time Critical Care Time: Yes <RAYSHAWN Hanna Last Filed: 03/01/22 17:41> Total Critical Care Time: 40 <RAYSHAWN Hanna Last Filed: 03/01/22 17:41> Attestation: I have personally provided critical care time exclusive of time spent on separately billable procedures. Time includes review of lab data, radiology results, discussion with consultants, and monitoring for potential decompensation. Intervention performed as documented. <RAYSHAWN Hanna Last Filed: 03/01/22 17:41> Discharge Plan Discharge Patient Disposition: Admitted As Inpatient <RAYSHAWN Hanna Last Filed: 03/01/22 17:41>
--- NOTE | 2022-03-01 15:30 | PC.NURSE ---
pt a&ox3, vss, maintaining 92% O2 on 1L, pt reports some confusion at home and some recent falls over the past couple of weeks, referred by PCP for elevated CO2. provider in room w pt
[2022-03-01 15:51] LABS: COVID-19 Test Negative (Negative)
[2022-03-01 16:23] LABS: ABG Refer to POC result
[2022-03-01 16:23] LABS: ABG Base Excess 13.4 mmol/L; ABG HCO3 44 mmol/L (22-26); ABG pCO2 90 mmHg (32-45); ABG pH 7.29 (7.35-7.45); ABG pO2 85 mmHg (83-108)
[2022-03-01 16:29] LABS: MANUAL DIFF FLAG NO
[2022-03-01 16:30] LABS: Basophils Percent Auto 0.6 % (0-2); Eosinophils Absolute Auto 0.1 X10*3/uL (0.0-0.4); Eosinophils Percent Auto 1.1 % (0-4); Hematocrit 40.5 % (37.0-47.0); Hemoglobin 11.8 g/dl (12.0-16.0); Imm Gran Abs Auto 0.02 X10*3/uL (0.00-0.03); Imm Gran Pct Auto 0.3 % (0.0-0.4); Lymphocytes Absolute Auto 0.6 X10*3/uL (1.2-4.9); Lymphocytes Percent Auto 9.6 % (20-40); Mean Corpuscular HGB Conc 29.1 g/dl (31.0-35.0); Mean Corpuscular Hemoglobin 28.6 pg (27.0-33.0); Mean Corpuscular Volume 98.1 fL (80.0-98.0); Mean Platelet Volume 8.9 fL (9.4-12.3); Monocytes Absolute Auto 0.6 X10*3/uL (0.1-1.2); Monocytes Percent Auto 8.8 % (2-11); Neutrophils Percent Auto 79.6 % (45-73); Platelet Count 354 X10*3/uL (160-400); Red Blood Count 4.13 X10*6/uL (4.20-5.50); Red Cell Distribution Width 16.2 % (11.0-16.0); White Blood Count 6.3 X10*3/uL (4.8-10.8)
[2022-03-01 16:49] LABS: Alanine Aminotransferase 18 U/L (0-31); Albumin Level 4.3 g/dL (3.5-5.0); Alkaline Phosphatase 59 U/L (39-117); Anion Gap 8 (12-20); Aspartate Amino Transferase 21 U/L (5-31); Bilirubin Direct < 0.2 mg/dL (0.0-0.5); Bilirubin Total 0.2 mg/dL (0.0-1.0); Blood Urea Nitrogen 12 mg/dL (9-16); Calcium 9.5 mg/dL (8.4-10.2); Carbon Dioxide 42 mmol/L (22-29); Chloride 98 mmol/L (96-108); Creatinine Clr Calc Pharmacy 48.5; Estimated Glomerular Filt Rate 52; Glucose Random 97 mg/dL (60-115); Magnesium 2.2 mg/dL (1.6-2.6); Potassium 4.2 mmol/L (3.3-5.1); Sodium 144 mmol/L (135-145); Total Protein 6.9 g/dL (6.5-8.0)
[2022-03-01 17:04] LABS: B Type Natriuretic Peptide 60 pg/mL (<100)
[2022-03-01] MEDS: Albuterol/Iprat 2.5/0.5MG 3 ML AMPUL.NEB INHALE (17:25)
[2022-03-01 18:27] LABS: ABG Refer to POC result
[2022-03-01 18:29] LABS: ABG Base Excess 13.5 mmol/L; ABG HCO3 43 mmol/L (22-26); ABG pCO2 80 mmHg (32-45); ABG pH 7.33 (7.35-7.45); ABG pO2 70 mmHg (83-108)
[2022-03-01] MEDS: predniSONE 10 MG TABLET 50 MG PO (18:48)
--- NOTE | 2022-03-01 18:48 | PC.NURSE ---
pt medicated per order
--- NOTE | 2022-03-01 19:54 | PHA.MEDREC ---
Pharmacy Consult ? Medication Reconciliation Pharmacy has completed the medication reconciliation. Patient is from [facility]. Thanks Jose
--- NOTE | 2022-03-01 20:14 | P.HPHOSP_ITS ---
History of Present Illness Date of Service: 03/01/22 Chief Complaint: hypercapnia this is a 66-year-old female with past medical history chronic respiratory failure with history of hypercapnia on 3 L of O2 at baseline, bipolar depression, CO2 retention,history of insomnia, I LD, presents to the hospital sent [facility] for CO2 retention. Patient reports that for the past 1 week she has had increased confusion as well as fall, she went to see a [facility], he did an ABG in the office and found her to be hypercapnic therefore sent her to the ED for BiPAP. Patient currently on the BiPAP, reports that she is feeling better, reports a cough with increased sputum production, increased dyspnea, otherwise reports no headache or change in vision, no chest pain, no abdominal pain nausea or vomiting, no diarrhea, no constipation, no urinary symptoms and no lower extremity edema. On arrival to the ED patient hemodynamically stable with a respiratory rate of 27, Labs are significant for WBC count of 6.3, hemoglobin of 11.8, hematocrit 40.8, ABG at [facility]'s office showed pH of 7.25 with pCO2 of 102. Patient was placed on BiPAP in the ED with improvement of her VBG. Her [facility] wanted her to be on the BiPAP overnight for correction of her hypercapnia. chest x-ray show CVS COPD with bullous changes throughout the lungs, dilated pulmonary artery suggestion of pulmonary hypertension Given her confusion, hypercapnia, as well COPD exacerbation, admission to the hospital for further management and close monitoring Review of Systems Review of Systems: Yes all other systems are reviewed and are negative [facility] Medical History Acute and chronic respiratory failure with hypercapnia Acute metabolic encephalopathy Acute on chronic respiratory failure with hypoxia and hypercapnia Bipolar depression Bronchitis Bronchopneumonia Chest pain Chronic respiratory alkalosis Chronic respiratory failure CO2 retention COPD (chronic obstructive pulmonary disease) Eczema Fall ILD (interstitial lung disease) Insomnia Limb swelling Osteopenia (~2012) Tubular adenoma of colon (~2006) Vasomotor rhinitis Family History Other Hypertension Surgical History History of carpal tunnel surgery (~2000) History of cataract surgery (~2018) History of colonoscopy History of left inguinal hernia repair (~1995) History of tracheostomy (~2016) History of ventral hernia repair (~2003) Social History Household Members: None Housing: Assisted Living Facility Housing Other:: person comes to do housework. Do you presently have visiting nurse or other home services: No Alcohol intake: unknown Patient Tobacco Use Status: Former Tobacco user Quit Date: 2018 Tobacco use type: Cigarette Years Smoked: 20+ years Smoked in Last 30 Days: No e-Cigarette/Vaping Use: Never Used Second Hand Smoke Exposure: No Advance Directives: Yes Advance Directives on File: Yes Advance Directives Date on File: 11/30/21 service: No Current occupational status: disabled Meds Allergies Allergy/AdvReac Type Severity Reaction Status Date / Time codeine [Codeine] Allergy Intermediate RESTLESS/RA Verified 03/01/22 14:56 SH haloperidol [Haldol] Allergy Intermediate Palpitation Verified 03/01/22 14:56 s Sulfa (Sulfonamide Allergy Intermediate HIVES Verified 03/01/22 14:56 Antibiotics) Home Medications Medication Instructions Recorded Confirmed Last Taken Type acetaminophen 500 mg tablet 1,000 mg PO TID PRN 02/09/21 03/01/22 Unknown History albuterol sulfate 90 mcg/actuation 2 puff INHALATION QID PRN 02/09/21 03/01/22 Unknown History aerosol inhaler (Proventil HFA) alendronate 70 mg tablet (Fosamax) 70 mg PO SA 02/09/21 03/01/22 02/27/22 History aripiprazole 10 mg tablet (Abilify) 10 mg PO DAILY 02/09/21 03/01/22 03/01/22 History aspirin 81 mg tablet,delayed 81 mg PO DAILY 02/09/21 03/01/22 03/01/22 History release cholecalciferol (vitamin D3) 50 50 mcg PO DAILY 02/09/21 03/01/22 03/01/22 H istory mcg (2,000 unit) capsule (Vitamin D3) fluticasone furoate 200 1 inh INHALATION DAILY 02/09/21 03/01/22 03/01/22 History mcg-vilanterol 25 mcg/dose inhalation powder (Breo Ellipta) lamotrigine 150 mg tablet 300 mg PO BEDTIME 02/09/21 03/01/22 02/28/22 History lamotrigine 200 mg tablet 200 mg PO DAILY 02/09/21 03/01/22 03/01/22 History magnesium oxide 400 mg PO BID 02/09/21 03/01/22 03/01/22 History montelukast 10 mg tablet 10 mg PO BEDTIME 02/09/21 03/01/22 02/28/22 History multivitamin 1 tab PO DAILY 02/09/21 03/01/22 03/01/22 History selenium sulfide 1 % shampoo 10 ml TOPICAL 2XW 02/09/21 03/01/22 Unknown History tiotropium bromide 18 mcg capsule 1 cap INHALATION DAILY 02/09/21 03/01/22 03/01/22 History with inhalation device (Spiriva with HandiHaler) vilazodone 20 mg tablet (Viibryd) 20 mg PO DAILY 02/09/21 03/01/22 03/01/22 History mirtazapine 15 mg tablet 15 mg PO BEDTIME 09/10/21 03/01/22 02/28/22 History ondansetron HCl 4 mg tablet 4 mg PO Q8H PRN 09/10/21 03/01/22 Unknown History (Zofran) sennosides 8.6 mg tablet (Senokot) 8.6 mg PO BEDTIME 09/10/21 03/01/22 02/28/22 History gabapentin 300 mg capsule 300 mg PO BEDTIME 10/05/21 03/01/22 02/28/22 History oxymetazoline 0.05 % nasal spray 2 spray INTRANASAL QID PRN 10/05/21 03/01/22 Unknown History polyethylene glycol 3350 17 17 g PO DAILY PRN 10/05/21 03/01/22 Unknown History gram/dose oral powder acetazolamide 250 mg tablet 250 mg PO DAILY 11/18/21 03/01/22 03/01/22 History metoprolol succinate 50 mg 50 mg PO DAILY 11/18/21 03/01/22 03/01/22 History tablet,extended release 24 hr Physical Exam Vital Signs and Narrative: Vital Signs: Last Vital Signs Temp 98.7 F 03/01/22 14:54 Pulse 70 03/01/22 18:00 Resp 13 03/01/22 18:00 BP 125/58 L 03/01/22 18:00 Pulse Ox 91 L 03/01/22 18:00 Oxygen Flow Rate 3 03/01/22 14:54 BMI result Body Mass Index 29.2 Const: General: cooperative and no acute distress Or ientation/consciousness: patient oriented x3 Eyes: General: appearance normal, both eyes and all related structures Pup ils: Equal, round and reactive pupils present Resp: Other: decreased breath sounds no wheezing appreciated Effort & Inspection: normal respiratory effort Cardio: Rate: regular rate Rhythm: regular rhythm GI: Palpation (GI): Soft to palpation Auscultation: normal bowel sounds Skin: General skin exam: no rashes or lesions noted Neuro: General: patient oriented x3 Cranial nerves: Yes Equal, round and reactive pupils present Cognition (Neuro): normal cognition Extrem: General: Yes normal to inspection and Yes no pedal edema Results Labs CBC and Chem 7: 03/01/22 16:22 03/01/22 16:22 Labs: Laboratory Results - last 24 hr 03/01/22 03/01/22 03/01/22 15:31 16:12 16:22 MCV 98.1 H MCH 28.6 MCHC 29.1 L RDW 16.2 H Plt Count 354 D MPV 8.9 L Immature Gran % (Auto) 0.3 Neut % (Auto) 79.6 H Lymph % (Auto) 9.6 L [place] % (Auto) 8.8 Eos % (Auto) 1.1 Baso % (Auto) 0.6 Lymph # (Auto) 0.6 L [place] # (Auto) 0.6 Eos # (Auto) 0.1 Baso # (Auto) 0.0 Abs Immat Gran (auto) 0.02 Absolute Neuts (auto) 5.0 Absolute Nucleated RBC 0.000 Nucleated RBC % (auto) 0.0 O2 Saturation 96.0 ABG pH at Pt Temp 7.29 L ABG pCO2 at Pt Temp 90 H* ABG pO2 at Pt Temp 85 ABG HCO3 44 H ABG Base Excess (Actual) 13.4 Anion Gap Estim Creat Clear Calc Estimated GFR Random Glucose Calcium Magnesium Total Bilirubin Direct Bilirubin AST ALT Alkaline Phosphatase B-Natriuretic Peptide Total Protein Albumin COVID-19 (EDU) Negative COVID-19 Clin Com See Note 03/01/22 03/01/22 03/01/22 16:22 16:22 18:18 MCV MCH MCHC RDW Plt Count MPV Immature Gran % (Auto) Neut % (Auto) Lymph % (Auto) [place] % (Auto) Eos % (Auto) Baso % (Auto) Lymph # (Auto) [place] # (Auto) Eos # (Auto) Baso # (Auto) Abs Immat Gran (auto) Absolute Neuts (auto) Absolute Nucleated RBC Nucleated RBC % (auto) O2 Saturation 93.0 ABG pH at Pt Temp 7.33 L ABG pCO2 at Pt Temp 80 H* ABG pO2 at Pt Temp 70 L ABG HCO3 43 H ABG Base Excess (Actual) 13.5 Anion Gap 8 L Estim Creat Clear Calc 48.5 Estimated GFR 52 Random Glucose 97 Calcium 9.5 Magnesium 2.2 Total Bilirubin 0.2 Direct Bilirubin < 0.2 AST 21 ALT 18 Alkaline Phosphatase 59 D B-Natriuretic Peptide 60 Total Protein 6.9 Albumin 4.3 COVID-19 (EDU) COVID-19 Clin Com Imaging Radiologist's Impressions: Impressions Chest CT 03/01/22 17:05 IMPRESSION: Severe COPD with bullous changes throughout the lungs. Dilated pulmonary artery suggestive of pulmonary hypertension. Fleischner guidelines were followed. Assessment and Plan (1) Altered mental status: Status: Acute (2) COPD exacerbation: Status: Acute (3) Acute and chronic respiratory failure with hypercapnia: Status: Acute Plan 66-year-old female with history of COPD presents to the hospital with hypercapnia # acute on chronic respiratory failure with hypercapnia - patient found to have hypercapnia on ABG done at [facility] office - on BiPAP, will continue at this time - BiPAP overnight - ABG in a.m. # COPD exacerbation - reports increased cough and sputum production as well as dyspnea - will place on Solu-Medrol, DuoNeb treatments - monitor respiratory status - of 3 L of baseline oxygen # encephalopathy - likely secondary to hypercapnia - monitor post BiPAP DVT prophylaxis: Lovenox Quality Stroke Does the patient have a stroke diagnosis?: No VTE Prior VTE?: No VTE Risk Level:: Medical - moderate - high VTE Device Contraindication: Treatment Not Indicated VTE Drug Contraindication: N/A - Med Ordered
--- NOTE | 2022-03-01 21:14 | PC.NURSE ---
pt a&ox3, vss, pt urinated but unable to get sample, pt reports resolution of headache. no new orders at this time.
[2022-03-01] MEDS: methylPREDNISolone Sod Succ 40 MG/ML VIAL IVPUSH (22:32)
[2022-03-01] MEDS: Enoxaparin Sodium 40 MG/0.4 ML SYRINGE SUBCUT (22:32)
--- NOTE | 2022-03-01 22:35 | PC.NURSE ---
patient medicated per order
--- NOTE | 2022-03-01 22:42 | MHC.CM.PN ---
CM unable to meet with patient at this time, as she was sleeping on on Bipap. Per medical record review, pt lives at [facility] with [employer]. Pt has [employer] insurance. Pt has home oxygen, uses a non-invasive ventilator at night (Trilogy) at 5L, and uses a wheelchair. HCP on file. HCP#1/son Anthony Cartagena ([phone]) and HCP#2/daughter Piper Calabrese ([phone]). MOLST on file-Full Code/dialysis/IV hydration/artificial nutrition. CM will need to meet with patient when awake and off Bipap. CM to follow for d/c needs.
--- NOTE | 2022-03-01 22:46 | PC.NURSE ---
attempted to call in report to ED overflow, RN transfusing blood, will call back when available.
[2022-03-02] VITALS (11 sets, daily range): BP systolic 108–128; BP diastolic 47–68; PULSE 58–99; RESP 14–20; TEMP 36.4–37; O2SAT 91–96
[2022-03-02] MEDS: 0.9 % Sodium Chloride Flush 3 ML SYRINGE IVFLUSH ×4 (00:30→23:08)
--- NOTE | 2022-03-02 06:45 | PC.NURSE ---
2330; Patient transferred to overflow ed bed 4. patient alert, oriented, denies any pain or discomfort at this time. Patient tolerated bipap all night, managed by respiratory. Patient assisted on bedpan, unable to collect urine sample at this time. vss, call marroquin within reach.
[2022-03-02 06:59] LABS: MANUAL DIFF FLAG NO
[2022-03-02 07:02] LABS: Basophils Percent Auto 0.2 % (0-2); Eosinophils Percent Auto 0.2 % (0-4); Hematocrit 39.2 % (37.0-47.0); Hemoglobin 11.9 g/dl (12.0-16.0); Imm Gran Abs Auto 0.04 X10*3/uL (0.00-0.03); Imm Gran Pct Auto 0.9 % (0.0-0.4); Lymphocytes Absolute Auto 0.4 X10*3/uL (1.2-4.9); Lymphocytes Percent Auto 7.9 % (20-40); Mean Corpuscular HGB Conc 30.4 g/dl (31.0-35.0); Mean Corpuscular Hemoglobin 28.6 pg (27.0-33.0); Mean Corpuscular Volume 94.2 fL (80.0-98.0); Mean Platelet Volume 9.1 fL (9.4-12.3); Monocytes Absolute Auto 0.2 X10*3/uL (0.1-1.2); Monocytes Percent Auto 3.8 % (2-11); Neutrophils Absolute Auto 4.1 x10*3/uL (2.0-8.3); Platelet Count 363 X10*3/uL (160-400); Red Blood Count 4.16 X10*6/uL (4.20-5.50); White Blood Count 4.7 X10*3/uL (4.8-10.8)
[2022-03-02 07:22] LABS: Anion Gap 7 (12-20); Blood Urea Nitrogen 12 mg/dL (9-16); Carbon Dioxide 39 mmol/L (22-29); Chloride 100 mmol/L (96-108); Creatinine Clr Calc Pharmacy 67.8; Estimated Glomerular Filt Rate > 60; Glucose Random 118 mg/dL (60-115); Potassium 4.2 mmol/L (3.3-5.1); Sodium 142 mmol/L (135-145)
[2022-03-02] MEDS: Albuterol/Iprat 2.5/0.5MG 3 ML AMPUL.NEB INHALE ×4 (07:57→19:58)
[2022-03-02] MEDS: Multivitamin TABLET 1 TAB PO (08:44)
[2022-03-02] MEDS: lamoTRIgine 100 MG TABLET 200 MG PO (08:44)
[2022-03-02] MEDS: acetaZOLAMIDE 250 MG TABLET PO (08:44)
[2022-03-02] MEDS: Cholecalciferol (Vitamin D3) 25 MCG TABLET 50 MCG PO (08:44)
[2022-03-02] MEDS: Theophylline Anhydrous ER 300 MG TAB.ER.12H PO ×2 (08:45→21:18)
[2022-03-02] MEDS: Vilazodone HCL 20 MG TABLET PO (08:45)
[2022-03-02] MEDS: ARIPiprazole 10 MG TABLET PO (08:45)
[2022-03-02] MEDS: Magnesium Oxide 400 MG TABLET PO ×2 (08:45→21:18)
[2022-03-02] MEDS: Aspirin Enteric Coated 81 MG TABLET.DR PO (08:45)
[2022-03-02] MEDS: Metoprolol Succinate ER 50 MG TAB.ER.24H PO (08:45)
[2022-03-02] MEDS: methylPREDNISolone Sod Succ 40 MG/ML VIAL IVPUSH ×2 (08:45→21:18)
--- NOTE | 2022-03-02 09:30 | MHC.CM.PN ---
PT REPORTS SHE LIVES ALONE AND HAS SERVICES PROVIDED BY THE [facility] SHE REPORTS THEY PROVIDE HOME SUPERVISOR, BUSINESS MACHINE OPERATOR, RN, PT AND OT SERVICES SHE REPORTS SHE HAS A BIPAP AT HOME THAT SHE IS SUPPOSED TO USE AT LEAST 10 HOURS PER DAY SHE REPORTS SHE IS ON OXYGEN ANY TIME SHE IS NOT ON THE BIPAP SHE REPORTS SHE HAS A SCOOTER AND WHEEL CHAIR WELL PT HAS A HCP ON FILE SHE CONFIRMS CORRECT SHE ALSO CONFIRMS HER PCP IS MILTON BEVERLY FROM THE [facility] SHE IS ALSO ACTIVE WITH [facility] AND [facility]. DENISA REPORTS SHE WOULD LIKE TO GO HOME WITH RESUMPTION OF SERVICES AT [place]. SHE HAS BEEN TO [facility] FOR PULMONARY REHAB IN THE PAST BUT FEELS SHE WILL NOT NEED THIS AT [place]. SHE REPORTS SHE MAY BE ABLE TO USE THE [facility] FOR TRANSPORT HOWEVER IF IT IS ON A WEEKEND OR WHEN THE VAN IS NOT RUNNING, SHE WILL NEED BLS. DENISA PROVIDED A COPY OF HER COVID-19 VACCINE CARD WELL HER MOLST AND A LIST OF PROVIDERS/CONTACTS. SHE REPORTS ANYONE ON THE LIST CAN OBTAIN HER MEDICAL INFORMATION. ALL COPIES HAVE BEEN SCANNED INTO [employer] AND SENT TO [facility] COVID-19 VAX: PFIZER 12/29/20 & 01/19/21 BOOSTER: PFIZER 09/16/21 CONTACT LIST: [facility]: [phone] MILTON BEVERLY MD: [phone] AUTUMN CHAVEZ S.W.: [phone] DR. DUGGAN (TISSUE COORDINATOR): [phone] ARIELA CHAVAGUERO (SON): [phone] CAROLINE REMI (DAUGHTER): [phone] ARNULFO VERDUZCO (DAUGHTER): [phone] TIFFANIE HEALY (DM): [phone] [facility]: [phone] MIKHAIL: [phone]
--- NOTE | 2022-03-02 09:39 | PM.CNPUL ---
History of Present Illness History of Present Illness Consult date: 03/02/22 Chief complaint: hypercapnic resp failure, COPD exacerbation Narrative: This is an inpatient pulmonary consultation. The patient is a 66-year-old woman with known severe COPD with an FEV1 of 0.4 L with chronic hypoxic and hypercarbic respiratory failure now on noninvasive ventilator return 10-12 hours a day. Previously she did have a tracheostomy because of the respiratory failure and she was able to be liberated from the mechanical ventilator in the tracheostomy many years ago. She does live on her own. She had been in a pulmonary rehab few months ago with a question of going back home versus long-term placement. The patient opted to going home. She has been provided great care from her [facility] program. They are watching her closely. Unfortunately for the last few days she has gotten more confuse in addition to that she has been weak specially her legs which she sometimes falls. Yesterday she given to a pulmonary office complaining of confusion and the falling episodes. She did have a venous gas demonstrating pH 7.25 with pCO2 102. She was transferred to the ER because she was not safe going home and needed urgent therapy for her acute on chronic hypercarbic respiratory failure. The patient was placed on BiPAP initially and then AVAPS and it appears that her blood gases are improving. Her AVAPS pressures were increased. She had a hard time tolerating the higher pressure which she was able to sleep overnight. The blood gases morning demonstrating a pH 7.33 with pCO2 of 80 and a bicaval 38 mEq. Review of Systems Constitutional: Constitutional: Reports fatigue and Reports weakness Eyes: Eyes: Denies change in vision ENT: Denies sore throat Cardiovascular: Cardiovascular: Denies chest pain and Reports dyspnea Respiratory: Respiratory: Reports chest congestion, Reports cough, Denies pain on inspiration, Denies pain with cough and Reports dyspnea Gastrointestinal: Gastrointestinal: Denies abdominal pain Musculoskeletal: Musculoskeletal: Reports abnormal gait and Reports muscle weakness Neurologic: Reports abnormal gait, Reports memory loss and Reports weakness Psychiatric: Psychiatric: Reports depression and Reports memory loss Endocrine: Endocrine: Reports fatigue PMFSH Past Medical History Medical History Acute and chronic respiratory failure with hypercapnia Acute metabolic encephalopathy Acute on chronic respiratory failure with hypoxia and hypercapnia Bipolar depression Bronchitis Bronchopneumonia Chest pain Chronic respiratory alkalosis Chronic respiratory failure CO2 retention COPD (chronic obstructive pulmonary disease) Eczema Fall ILD (interstitial lung disease) Insomnia Limb swelling Osteopenia (~2012) Tubular adenoma of colon (~2006) Vasomotor rhinitis Family History Family History Other Hypertension Surgical History Surgical History History of carpal tunnel surgery (~2000) History of cataract surgery (~2018) History of colonoscopy History of left inguinal hernia repair (~1995) History of tracheostomy (~2016) History of ventral hernia repair (~2003) Social History Social History Household Members: None Housing: Assisted Living Facility Housing Other:: person comes to do housework. Do you presently have visiting nurse or other home services: No Alcohol intake: unknown Patient Tobacco Use Status: Former Tobacco user Quit Date: 2018 Tobacco use type: Cigarette Years Smoked: 20+ years Smoked in Last 30 Days: No e-Cigarette/Vaping Use: Never Used Second Hand Smoke Exposure: No Advance Directives: Yes Advance Directives on File: Yes Advance Directives Date on File: 11/30/21 service: No Current occupational status: disabled Meds Allergies Allergy/AdvReac Type Severity Reaction Status Date / Time codeine [Codeine] Allergy Intermediate RESTLESS/RA Verified 03/01/22 14:56 SH haloperidol [Haldol] Allergy Intermediate Palpitation Verified 03/01/22 14:56 s Sulfa (Sulfonamide Allergy Intermediate HIVES Verified 03/01/22 14:56 Antibiotics) Active Medications: Current Medications Acetaminophen (Acetaminophen 325 Mg Tablet) 650 mg PO Q6H PRN PRN Reason: Pain, Mild (Pain Scale 1-3) Acetazolamide (Acetazolamide 250 Mg Tablet) 250 mg PO DAILY [facility] Last Admin: 03/02/22 08:44 Dose: 250 mg Documented by: Albuterol Sulfate (Albuterol Sulfate 90 Mcg 8 Gm Inhaler) 2 puff INHALE QID PRN PRN Reason: Respiratory Distress Albuterol/Ipratropium (Albuterol/Iprat 2.5/0.5mg 3 Ml Ampul.Neb) 3 ml INHALE RQ4H PRN PRN Reason: Shortness of Breath/Wheezing Albuterol/Ipratropium (Albuterol/Iprat 2.5/0.5mg 3 Ml Ampul.Neb) 3 ml INHALE RQ4H WHILE AWAKE [facility] Last Admin: 03/02/22 07:57 Dose: 3 ml Documented by: Aripiprazole (Aripiprazole 10 Mg Tablet) 10 mg PO DAILY [facility] Last Admin: 03/02/22 08:45 Dose: 10 mg Documented by: Aspirin (Aspirin Enteric Coated 81 Mg Tablet.) 81 mg PO DAILY [facility] Last Admin: 03/02/22 08:45 Dose: 81 mg Documented by: Docusate Sodium (Docusate Sodium 100 Mg Capsule) 100 mg PO DAILY PRN PRN Reason: Constipation Enoxaparin Sodium (Enoxaparin Sodium 40 Mg/0.4 Ml Syringe) 40 mg SUBCUT Q24H [facility] Last Admin: 03/01/22 22:32 Dose: 40 mg Documented by: Gabapentin (Gabapentin 300 Mg Capsule) 300 mg PO BEDTIME [facility] Lamotrigine (Lamotrigine 100 Mg Tablet) 300 mg PO BEDTIME [facility] Lamotrigine (Lamotrigine 100 Mg Tablet) 200 mg PO DAILY [facility] Last Admin: 03/02/22 08:44 Dose: 200 mg Documented by: Magnesium Oxide (Magnesium Oxide 400 Mg Tablet) 400 mg PO BID [facility] Last Admin: 03/02/22 08:45 Dose: 400 mg Documented by: Methylprednisolone Sodium Succinate (Methylprednisolone Sod Succ 40 Mg/Ml Vial) 40 mg IVPUSH Q12H [facility] Last Admin: 03/02/22 08:45 Dose: 40 mg Documented by: Metoprolol Succinate (Metoprolol Succinate Er 50 Mg Tab.Er.24h) 50 mg PO DAILY [facility]; Protocol Last Admin: 03/02/22 08:45 Dose: 50 mg Documented by: Mirtazapine (Mirtazapine 15 Mg Tablet) 15 mg PO BEDTIME [facility] Montelukast Sodium (Montelukast Sodium 10 Mg Tablet) 10 mg PO BEDTIME [facility] Multivitamins/Vitamin C (Multivitamin Tablet) 1 tab PO DAILY [facility] Last Admin: 03/02/22 08:44 Dose: 1 tab Documented by: Ondansetron HCl (Ondansetron Hcl 4 Mg/2 Ml Vial) 4 mg IVPUSH Q8H PRN PRN Reason: Nausea and Vomiting Oxymetazoline HCl (Oxymetazoline Hcl 0.05 % Nasal 15 Ml [place]) 2 spray NOSTRIL-B QID PRN PRN Reason: Nasal Congestion Polyethylene Glycol (Polyethylene Glycol 3350 17 Gm Powd.Pack) 17 gm PO DAILY PRN PRN Reason: Constipation Senna (Sennosides 8.6 Mg Tablet) 8.6 mg PO BEDTIME [facility] Sodium Chloride (0.9 % Sodium Chloride Flush 3 Ml Syringe) 3 ml IVFLUSH QSHIFT [facility] Last Admin: 03/02/22 08:45 Dose: 3 ml Documented by: Theophylline (Theophylline Anhydrous Er 300 Mg Tab.Er.12h) 300 mg PO Q12H [facility] Last Admin: 03/02/22 08:45 Dose: 300 mg Documented by: Tiotropium [place] (Tiotropium [place] 18 Mcg Cap.W.Dev) 1 puff INHALE RDAILY [facility] Last Admin: 03/02/22 08:01 Dose: Not Given Documented by: Vilazodone HCl (Vilazodone Hcl 20 Mg Tablet) 20 mg PO DAILY [facility] Last Admin: 03/02/22 08:45 Dose: 20 mg Documented by: Vitamin D (Cholecalciferol (Vitamin D3) 25 Mcg Tablet) 50 mcg PO DAILY [facility] Last Admin: 03/02/22 08:44 Dose: 50 mcg Documented by: Home Medications Medication Instructions Recorded Confirmed Last Taken Type acetaminophen 500 mg tablet 1,000 mg PO TID PRN 02/09/21 03/01/22 Unknown History albuterol sulfate 90 mcg/actuation 2 puff INHALATION QID PRN 02/09/21 03/01/22 Unknown History aerosol inhaler (Proventil HFA) alendronate 70 mg tablet (Fosamax) 70 mg PO SA 02/09/21 03/01/22 02/27/22 History aripiprazole 10 mg tablet (Abilify) 10 mg PO DAILY 02/09/21 03/01/22 03/01/22 History aspirin 81 mg tablet,delayed 81 mg PO DAILY 02/09/21 03/01/22 03/01/22 History release cholecalciferol (vitamin D3) 50 50 mcg PO DAILY 02/09/21 03/01/22 03/01/22 History mcg (2,000 unit) capsule (Vitamin D3) fluticasone furoate 200 1 inh INHALATION DAILY 02/09/21 03/01/22 03/01/22 History mcg-vilanterol 25 mcg/dose inhalation powder (Breo Ellipta) lamotrigine 150 mg tablet 300 mg PO BEDTIME 02/09/21 03/01/22 02/28/22 History lamotrigine 200 mg tablet 200 mg PO DAILY 02/09/21 03/01/22 03/01/22 History magnesium oxide 400 mg PO BID 02/09/21 03/01/22 03/01/22 History montelukast 10 mg tablet 10 mg PO BEDTIME 02/09/21 03/01/22 02/28/22 History multivitamin 1 tab PO DAILY 02/09/21 03/01/22 03/01/22 History selenium sulfide 1 % shampoo 10 ml TOPICAL 2XW 02/09/21 03/01/22 Unknown History tiotropium bromide 18 mcg capsule 1 cap INHALATION DAILY 02/09/21 03/01/22 03/01/22 History with inhalation device (Spiriva with HandiHaler) vilazodone 20 mg tablet (Viibryd) 20 mg PO DAILY 02/09/21 03/01/22 03/01/22 History mirtazapine 15 mg tablet 15 mg PO BEDTIME 09/10/21 03/01/22 02/28/22 History ondansetron HCl 4 mg tablet 4 mg PO Q8H PRN 09/10/21 03/01/22 Unknown History (Zofran) sennosides 8.6 mg tablet (Senokot) 8.6 mg PO BEDTIME 09/10/21 03/01/22 02/28/22 History gabapentin 300 mg capsule 300 mg PO BEDTIME 10/05/21 03/01/22 02/28/22 History oxymetazoline 0.05 % nasal spray 2 spray INTRANASAL QID PRN 10/05/21 03/01/22 Unknown History polyethylene glycol 3350 17 17 g PO DAILY PRN 10/05/21 03/01/22 Unknown History gram/dose oral powder acetazolamide 250 mg tablet 250 mg PO DAILY 11/18/21 03/01/22 03/01/22 History metoprolol succinate 50 mg 50 mg PO DAILY 11/18/21 03/01/22 03/01/22 History tablet,extended release 24 hr Physical Exam Vital Signs: Vital Signs: Last Vital Signs Temp 98.7 F 03/01/22 14:54 Pulse 65 04/05/22 08:12 Resp 15 03/02/22 08:12 BP 128/68 03/02/22 08:12 Pulse Ox 95 03/02/22 08:12 Oxygen Flow Rate 3 03/01/22 14:54 BMI result Body Mass Index 29.2 Const: General: alert Neck: Neck: Yes normal visual inspection, Yes full ROM and Yes no lymphadenopathy Chest: Chest palpation & inspection: normal inspection of the chest Resp: Auscultation: diminished lung sounds Cardio: Rate: regular rate Rhythm: regular rhythm Heart sounds: S1 normal heart sound present and S2 normal heart sound present GI: Palpation (GI): Soft to palpation and nontender Auscultation: normal bowel sounds Skin: General skin exam: rashes and/or lesions noted Results Laboratory Findings CBC and BMP: 03/02/22 06:49 03/02/22 06:49 Abnormal lab findings: Abnormal Labs 03/01/22 03/01/22 03/01/22 16:12 16:22 16:22 WBC RBC 4.13 L Hgb 11.8 L MCV 98.1 H MCHC 29.1 L RDW 16.2 H MPV 8.9 L Immature Gran % (Auto) Neut % (Auto) 79.6 H Lymph % (Auto) 9.6 L Lymph # (Auto) 0.6 L Abs Immat Gran (auto) ABG pH at Pt Temp 7.29 L ABG pCO2 at Pt Temp 90 H* ABG pO2 at Pt Temp ABG HCO3 44 H Carbon Dioxide 42 H* Anion Gap 8 L Random Glucose 03/01/22 03/02/22 03/02/22 18:18 06:49 06:49 WBC 4.7 L RBC 4.16 L Hgb 11.9 L MCV MCHC 30.4 L RDW MPV 9.1 L Immature Gran % (Auto) 0.9 H Neut % (Auto) 87.0 H Lymph % (Auto) 7.9 L Lymph # (Auto) 0.4 L Abs Immat Gran (auto) 0.04 H ABG pH at Pt Temp 7.33 L ABG pCO2 at Pt Temp 80 H* ABG pO2 at Pt Temp 70 L ABG HCO3 43 H Carbon Dioxide 39 H Anion Gap 7 L Random Glucose 118 H Assessment and Plan (1) COPD exacerbation: Status: Acute (2) Altered mental status: Status: Acute (3) Acute and chronic respiratory failure with hypercapnia: Status: Acute Plan Continue with p.o. prednisone Oxygen supplementation to maintain a pulse ox above 88-96% Continue noninvasive ventilator at nighttime on AVAPS with settings of tidal volume 600, EPAP 8, minimum pressure 15, maximum pressure 30. Will try the pressures again tonight if she does tolerate them I will submit a prescription to her [employer] company, [employer] in order to adjust her machine at home The patient should continue using the AVAPS at nighttime and also 2 hours during the daytime at least Continue Diamox 250 mg p.o. daily monitoring closely her bicarb The patient does have advance COPD. Currently she is a full code Procedures Date of Service Date of Service: 03/02/22
--- NOTE | 2022-03-02 10:40 | PC.NURSE ---
Pt is A&Ox4, wheelchair bound at baseline, able to self reposition in bed at this time. Bipap tolerated well overnight, removed this morning with the ok from respiratory, placed on 3L NC which is baseline at home. O2 sat 92% and above. Lungs diminished throughout. Seen by pulm this morning. Pt offers no complaints of pain. Call marroquin within reach. Will continue to monitor.
[2022-03-02] MEDS: Acetaminophen 325 MG TABLET 650 MG PO (11:51)
--- NOTE | 2022-03-02 12:03 | P.PNIM_ITS ---
Subjective Subjective Date of Service: 03/02/22 Interval History: Acute on chronic respiratory failure. Review of Systems Patient still short of breath, has cough Denies any chest pain or abdominal pain or nausea vomiting or fever chills. Physical Exam Vital Signs: Vital Signs: Last Vital Signs Temp 98.7 F 03/01/22 14:54 Pulse 78 03/02/22 11:25 Resp 18 03/02/22 11:25 BP 128/68 03/02/22 08:12 Pulse Ox 95 03/02/22 08:12 Oxygen Flow Rate 3 03/01/22 14:54 BMI result Body Mass Index 29.2 Physical exam: Appearance: Alert.? Oriented X3.? not in distress. cvs: rrr, [id number] , no murmur res: clear to auscultation ,no rhonchii or wheezing abd: no rebound or guarding ,nt, bs present. ext pulses present , no cyanosis , neuro: axo3 , nonfocal. Objective Data Active Medications Acetaminophen (Acetaminophen 325 Mg Tablet) 650 mg PO Q6H PRN PRN Reason: Pain, Mild (Pain Scale 1-3) Last Admin: 03/02/22 11:51 Dose: 650 mg Documented by: VIVI Acetazolamide (Acetazolamide 250 Mg Tablet) 250 mg PO DAILY [facility] Last Admin: 03/02/22 08:44 Dose: 250 mg Documented by: VIVI Albuterol Sulfate (Albuterol Sulfate 90 Mcg 8 Gm Inhaler) 2 puff INHALE QID PRN PRN Reason: Respiratory Distress Albuterol/Ipratropium (Albuterol/Iprat 2.5/0.5mg 3 Ml Ampul.Neb) 3 ml INHALE RQ4H PRN PRN Reason: Shortness of Breath/Wheezing Albuterol/Ipratropium (Albuterol/Iprat 2.5/0.5mg 3 Ml Ampul.Neb) 3 ml INHALE RQ4H WHILE AWAKE [facility] Last Admin: 03/02/22 11:24 Dose: 3 ml Documented by: DOUG Aripiprazole (Aripiprazole 10 Mg Tablet) 10 mg PO DAILY [facility] Last Admin: 03/02/22 08:45 Dose: 10 mg Documented by: VIVI Aspirin (Aspirin Enteric Coated 81 Mg Tablet.) 81 mg PO DAILY [facility] Last Admin: 03/02/22 08:45 Dose: 81 mg Documented by: VIVI Docusate Sodium (Docusate Sodium 100 Mg Capsule) 100 mg PO DAILY PRN PRN Reason: Constipation Enoxaparin Sodium (Enoxaparin Sodium 40 Mg/0.4 Ml Syringe) 40 mg SUBCUT Q24H [facility] Last Admin: 03/01/22 22:32 Dose: 40 mg Documented by: HALLE Gabapentin (Gabapentin 300 Mg Capsule) 300 mg PO BEDTIME [facility] Lamotrigine (Lamotrigine 100 Mg Tablet) 300 mg PO BEDTIME [facility] Lamotrigine (Lamotrigine 100 Mg Tablet) 200 mg PO DAILY [facility] Last Admin: 03/02/22 08:44 Dose: 200 mg Documented by: VIVI Magnesium Oxide (Magnesium Oxide 400 Mg Tablet) 400 mg PO BID [facility] Last Admin: 03/02/22 08:45 Dose: 400 mg Documented by: VIVI Methylprednisolone Sodium Succinate (Methylprednisolone Sod Succ 40 Mg/Ml Vial) 40 mg IVPUSH Q12H [facility] Last Admin: 03/02/22 08:45 Dose: 40 mg Documented by: VIVI Metoprolol Succinate (Metoprolol Succinate Er 50 Mg Tab.Er.24h) 50 mg PO DAILY [facility]; Protocol Last Admin: 03/02/22 08:45 Dose: 50 mg Documented by: VIVI Mirtazapine (Mirtazapine 15 Mg Tablet) 15 mg PO BEDTIME [facility] Montelukast Sodium (Montelukast Sodium 10 Mg Tablet) 10 mg PO BEDTIME [facility] Multivitamins/Vitamin C (Multivitamin Tablet) 1 tab PO DAILY [facility] Last Admin: 03/02/22 08:44 Dose: 1 tab Documented by: VIVI Ondansetron HCl (Ondansetron Hcl 4 Mg/2 Ml Vial) 4 mg IVPUSH Q8H PRN PRN Reason: Nausea and Vomiting Oxymetazoline HCl (Oxymetazoline Hcl 0.05 % Nasal 15 Ml [place]) 2 spray NOSTRIL- B QID PRN PRN Reason: Nasal Congestion Polyethylene Glycol (Polyethylene Glycol 3350 17 Gm Powd.Pack) 17 gm PO DAILY PRN PRN Reason: Constipation Senna (Sennosides 8.6 Mg Tablet) 8.6 mg PO BEDTIME [facility] Sodium Chloride (0.9 % Sodium Chloride Flush 3 Ml Syringe) 3 ml IVFLUSH QSHIFT [facility] Last Admin: 03/02/22 08:45 Dose: 3 ml Documented by: VIVI Theophylline (Theophylline Anhydrous Er 300 Mg Tab.Er.12h) 300 mg PO Q12H [facility] Last Admin: 03/02/22 08:45 Dose: 300 mg Documented by: VIVI Tiotropium [place] (Tiotropium [place] 18 Mcg Cap.W.Dev) 1 puff INHALE RDAILY [facility] Last Admin: 03/02/22 08:01 Dose: Not Given Documented by: DOUG Non-Admin Reason: Med Not Available Vilazodone HCl (Vilazodone Hcl 20 Mg Tablet) 20 mg PO DAILY [facility] Last Admin: 03/02/22 08:45 Dose: 20 mg Documented by: VIVI Vitamin D (Cholecalciferol (Vitamin D3) 25 Mcg Tablet) 50 mcg PO DAILY [facility] Last Admin: 03/02/22 08:44 Dose: 50 mcg Documented by: VIVI Labs CBC & Chem 7: 03/02/22 06:49 03/02/22 06:49 Labs: Laboratory Results - last 24 hr 03/01/22 03/01/22 03/01/22 15:31 16:12 16:22 MCV 98.1 H MCH 28.6 MCHC 29.1 L RDW 16.2 H Plt Count 354 D MPV 8.9 L Immature Gran % (Auto) 0.3 Neut % (Auto) 79.6 H Lymph % (Auto) 9.6 L [place] % (Auto) 8.8 Eos % (Auto) 1.1 Baso % (Auto) 0.6 Lymph # (Auto) 0.6 L [place] # (Auto) 0.6 Eos # (Auto) 0.1 Baso # (Auto) 0.0 Abs Immat Gran (auto) 0.02 Absolute Neuts (auto) 5.0 Absolute Nucleated RBC 0.000 Nucleated RBC % (auto) 0.0 O2 Saturation 96.0 ABG pH at Pt Temp 7.29 L ABG pCO2 at Pt Temp 90 H* ABG pO2 at Pt Temp 85 ABG HCO3 44 H ABG Base Excess (Actual) 13.4 Anion Gap Estim Creat Clear Calc Estimated GFR Random Glucose Calcium Magnesium Total Bilirubin Direct Bilirubin AST ALT Alkaline Phosphatase B-Natriuretic Peptide Total Protein Albumin COVID-19 (EDU) Negative COVID-19 Clin Com See Note 03/01/22 03/01/22 03/01/22 16:22 16:22 18:18 MCV MCH MCHC RDW Plt Count MPV Immature Gran % (Auto) Neut % (Auto) Lymph % (Auto) [place] % (Auto) Eos % (Auto) Baso % (Auto) Lymph # (Auto) [place] # (Auto) Eos # (Auto) Baso # (Auto) Abs Immat Gran (auto) Absolute Neuts (auto) Absolute Nucleated RBC Nucleated RBC % (auto) O2 Saturation 93.0 ABG pH at Pt Temp 7.33 L ABG pCO2 at Pt Temp 80 H* ABG pO2 at Pt Temp 70 L ABG HCO3 43 H ABG Base Excess (Actual) 13.5 Anion Gap 8 L Estim Creat Clear Calc 48.5 Estimated GFR 52 Random Glucose 97 Calcium 9.5 Magnesium 2.2 Total Bilirubin 0.2 Direct Bilirubin < 0.2 AST 21 ALT 18 Alkaline Phosphatase 59 D B-Natriuretic Peptide 60 Total Protein 6.9 Albumin 4.3 COVID-19 (EDU) COVID-19 Clin Com 03/02/22 03/02/22 06:49 06:49 MCV 94.2 MCH 28.6 MCHC 30.4 L RDW 16.0 Plt Count 363 MPV 9.1 L Immature Gran % (Auto) 0.9 H Neut % (Auto) 87.0 H Lymph % (Auto) 7.9 L [place] % (Auto) 3.8 Eos % (Auto) 0.2 Baso % (Auto) 0.2 Lymph # (Auto) 0.4 L [place] # (Auto) 0.2 Eos # (Auto) 0.0 Baso # (Auto) 0.0 Abs Immat Gran (auto) 0.04 H Absolute Neuts (auto) 4.1 Absolute Nucleated RBC 0.000 Nucleated RBC % (auto) 0.0 O2 Saturation ABG pH at Pt Temp ABG pCO2 at Pt Temp ABG pO2 at Pt Temp ABG HCO3 ABG Base Excess (Actual) Anion Gap 7 L Estim Creat Clear Calc 67.8 Estimated GFR > 60 Random Glucose 118 H Calcium 9.0 Magnesium Total Bilirubin Direct Bilirubin AST ALT Alkaline Phosphatase B-Natriuretic Peptide Total Protein Albumin COVID-19 (EDU) COVID-19 Clin Com Assessment and Plan (1) COPD exacerbation: Status: Acute Plan 66-year-old female with history of COPD presents to the hospital with hypercapnia 1.acute on chronic respiratory failure with hypercapnia -? 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 on BiPAP, will continue at this time -? BiPAP overnight, abg noted 2.? COPD exacerbation -? reports increased cough and sputum production as well as dyspnea -? will place on? Solu-Medrol,? DuoNeb, dimox treatments -? monitor respiratory status -? of 3 L of baseline oxygen 3. encephalopathy -? likely secondary to hypercapnia -? monitor post BiPAP ?DVT prophylaxis:? Lovenox. Need for inpatient:acute on chronic respiratory failure with hypercapnia Quality Stroke Does the patient have a stroke diagnosis?: No VTE Prior VTE?: No VTE Risk Level:: Medical - moderate - high VTE Device Contraindication: Treatment Not Indicated VTE Drug Contraindication: N/A - Med Ordered
[2022-03-02 12:30] LABS: Appearance Urine CLEAR; Color Urine YELLOW; Glucose Urine UA NEG (NEG); Leukocyte Esterase Urine NEG (NEG); Nitrite Urine NEG (NEG); PH 7.5 (5.0-8.0); UACC Culture Trigger NO; Urine Blood TRACE (NEG); Urine Ketones NEG (NEG); Urine Protein TRACE MG/DL (NEG-TRACE)
[2022-03-02 12:43] LABS: Amphetamine Screen Urine Not Detected (Not Detect); Barbiturates, Urine Not Detected (Not Detect); Benzodiazepines Screen Urine Not Detected (Not Detect); Cannabinoid Screen Urine Not Detected (Not Detect); Cocaine Screen Urine Not Detected (Not Detect); Fentanyl, urine Not Detected (Not Detect); Opiate Screen Urine Not Detected (Not Detect); Phencyclidine Screen Urine Not Detected (Not Detect)
[2022-03-02 12:44] LABS: RBC Urine 0-2 /HPF (0); Squamous Epithelial Cell Urine TRACE /LPF; WBC Urine 0-2 /HPF (0-4)
[2022-03-02] MEDS: Sennosides 8.6 MG TABLET PO (21:16)
[2022-03-02] MEDS: lamoTRIgine 100 MG TABLET 300 MG PO (21:16)
[2022-03-02] MEDS: Mirtazapine 15 MG TABLET PO (21:17)
[2022-03-02] MEDS: Gabapentin 300 MG CAPSULE PO (21:18)
[2022-03-02] MEDS: Montelukast Sodium 10 MG TABLET PO (21:18)
[2022-03-02] MEDS: Enoxaparin Sodium 40 MG/0.4 ML SYRINGE SUBCUT (23:08)
[2022-03-03] VITALS (7 sets, daily range): BP systolic 113–130; BP diastolic 59–69; PULSE 60–70; RESP 11–23; TEMP 36.2; O2SAT 94–97
--- NOTE | 2022-03-03 01:20 | PC.NURSE ---
Pt seen on the bed at 2330, asleep but awaken when spoken to, denies any SOB, nor CP, RT placed pt on her bedtime bipap and tolerated, LS dim, still c/o SOB with exertion, SR in tele, no edema noteed, assisted to commde when toileting, slept fairly.
[2022-03-03 06:05] LABS: Anion Gap 14 (12-20); Blood Urea Nitrogen 17 mg/dL (9-16); Calcium 9.2 mg/dL (8.4-10.2); Carbon Dioxide 31 mmol/L (22-29); Chloride 101 mmol/L (96-108); Estimated Glomerular Filt Rate > 60; Glucose Random 124 mg/dL (60-115); Potassium 4.8 mmol/L (3.3-5.1); Sodium 141 mmol/L (135-145)
[2022-03-03] MEDS: Albuterol/Iprat 2.5/0.5MG 3 ML AMPUL.NEB INHALE ×2 (07:54→11:10)
[2022-03-03] MEDS: Metoprolol Succinate ER 50 MG TAB.ER.24H PO (08:41)
[2022-03-03] MEDS: Magnesium Oxide 400 MG TABLET PO (08:41)
[2022-03-03] MEDS: Vilazodone HCL 20 MG TABLET PO (08:41)
[2022-03-03] MEDS: Theophylline Anhydrous ER 300 MG TAB.ER.12H PO (08:41)
[2022-03-03] MEDS: Cholecalciferol (Vitamin D3) 25 MCG TABLET 50 MCG PO (08:41)
[2022-03-03] MEDS: acetaZOLAMIDE 250 MG TABLET PO (08:41)
[2022-03-03] MEDS: Multivitamin TABLET 1 TAB PO (08:41)
[2022-03-03] MEDS: ARIPiprazole 10 MG TABLET PO (08:41)
[2022-03-03] MEDS: Aspirin Enteric Coated 81 MG TABLET.DR PO (08:41)
[2022-03-03] MEDS: 0.9 % Sodium Chloride Flush 3 ML SYRINGE IVFLUSH (08:42)
[2022-03-03] MEDS: methylPREDNISolone Sod Succ 40 MG/ML VIAL IVPUSH (08:42)
[2022-03-03] MEDS: lamoTRIgine 100 MG TABLET 200 MG PO (08:42)
--- NOTE | 2022-03-03 08:49 | HO.PM.IMPN ---
Subjective Subjective Date of Service: 03/03/22 Interval History: copd excerebation Physical Exam Vital Signs: Vital Signs: Last Vital Signs Temp 97.2 F 03/03/22 04:00 Pulse 69 03/03/22 08:10 Resp 11 L 03/03/22 08:10 BP 117/69 03/03/22 08:10 Pulse Ox 97 03/03/22 08:10 Oxygen Flow Rate 3 03/01/22 14:54 BMI result Body Mass Index 29.2 Objective Data Active Medications Acetaminophen (Acetaminophen 325 Mg Tablet) 650 mg PO Q6H PRN PRN Reason: Pain, Mild (Pain Scale 1-3) Last Admin: 03/02/22 11:51 Dose: 650 mg Documented by: VIVI Acetazolamide (Acetazolamide 250 Mg Tablet) 250 mg PO DAILY [facility] Last Admin: 03/03/22 08:41 Dose: 250 mg Documented by: CECILIA Albuterol Sulfate (Albuterol Sulfate 90 Mcg 8 Gm Inhaler) 2 puff INHALE QID PRN PRN Reason: Respiratory Distress Albuterol/Ipratropium (Albuterol/Iprat 2.5/0.5mg 3 Ml Ampul.Neb) 3 ml INHALE RQ4H PRN PRN Reason: Shortness of Breath/Wheezing Albuterol/Ipratropium (Albuterol/Iprat 2.5/0.5mg 3 Ml Ampul.Neb) 3 ml INHALE RQ4H WHILE AWAKE [facility] Last Admin: 03/03/22 07:54 Dose: 3 ml Documented by: DIPTI Aripiprazole (Aripiprazole 10 Mg Tablet) 10 mg PO DAILY [facility] Last Admin: 03/03/22 08:41 Dose: 10 mg Documented by: CECILIA Aspirin (Aspirin Enteric Coated 81 Mg Tablet.Dr) 81 mg PO DAILY [facility] Last Admin: 03/03/22 08:41 Dose: 81 mg Documented by: CECILIA Docusate Sodium (Docusate Sodium 100 Mg Capsule) 100 mg PO DAILY PRN PRN Reason: Constipation Enoxaparin Sodium (Enoxaparin Sodium 40 Mg/0.4 Ml Syringe) 40 mg SUBCUT Q24H [facility] Last Admin: 03/02/22 23:08 Dose: 40 mg Documented by: TOAN Gabapentin (Gabapentin 300 Mg Capsule) 300 mg PO BEDTIME [facility] Last Admin: 03/02/22 21:18 Dose: 300 mg Documented by: LEONORA Lamotrigine (Lamotrigine 100 Mg Tablet) 300 mg PO BEDTIME [facility] Last Admin: 03/02/22 21:16 Dose: 300 mg Documented by: LEONORA Lamotrigine (Lamotrigine 100 Mg Tablet) 200 mg PO DAILY [facility] Last Admin: 03/03/22 08:42 Dose: 200 mg Documented by: CECILIA Magnesium Oxide (Magnesium Oxide 400 Mg Tablet) 400 mg PO BID [facility] Last Admin: 03/03/22 08:41 Dose: 400 mg Documented by: CECILIA Methylprednisolone Sodium Succinate (Methylprednisolone Sod Succ 40 Mg/Ml Vial) 40 mg IVPUSH Q12H [facility] Last Admin: 03/03/22 08:42 Dose: 40 mg Documented by: CECILIA Metoprolol Succinate (Metoprolol Succinate Er 50 Mg Tab.Er.24h) 50 mg PO DAILY [facility]; Protocol Last Admin: 03/03/22 08:41 Dose: 50 mg Documented by: CECILIA Mirtazapine (Mirtazapine 15 Mg Tablet) 15 mg PO BEDTIME [facility] Last Admin: 03/02/22 21:17 Dose: 15 mg Documented by: LEONORA Montelukast Sodium (Montelukast Sodium 10 Mg Tablet) 10 mg PO BEDTIME [facility] Last Admin: 03/02/22 21:18 Dose: 10 mg Documented by: LEONORA Multivitamins/Vitamin C (Multivitamin Tablet) 1 tab PO DAILY [facility] Last Admin: 03/03/22 08:41 Dose: 1 tab Documented by: CECILIA Ondansetron HCl (Ondansetron Hcl 4 Mg/2 Ml Vial) 4 mg IVPUSH Q8H PRN PRN Reason: Nausea and Vomiting Oxymetazoline HCl (Oxymetazoline Hcl 0.05 % Nasal 15 Ml [place]) 2 spray NOSTRIL-B QID PRN PRN Reason: Nasal Congestion Polyethylene Glycol (Polyethylene Glycol 3350 17 Gm Powd.Pack) 17 gm PO DAILY PRN PRN Reason: Constipation Senna (Sennosides 8.6 Mg Tablet) 8.6 mg PO BEDTIME [facility] Last Admin: 03/02/22 21:16 Dose: 8.6 mg Documented by: LEONORA Sodium Chloride (0.9 % Sodium Chloride Flush 3 Ml Syringe) 3 ml IVFLUSH QSHIFT [facility] Last Admin: 03/03/22 08:42 Dose: 3 ml Documented by: CECILIA Theophylline (Theophylline Anhydrous Er 300 Mg Tab.Er.12h) 300 mg PO Q12H [facility] Last Admin: 03/03/22 08:41 Dose: 300 mg Documented by: CECILIA Tiotropium Kenna (Tiotropium Kenna 18 Mcg Cap.W.Dev) 1 puff INHALE RDAILY [facility] Last Admin: 03/03/22 08:44 Dose: 1 puff Documented by: CECILIA Vilazodone HCl (Vilazodone Hcl 20 Mg Tablet) 20 mg PO DAILY [facility] Last Admin: 03/03/22 08:41 Dose: 20 mg Documented by: CECILIA Vitamin D (Cholecalciferol (Vitamin D3) 25 Mcg Tablet) 50 mcg PO DAILY [facility] Last Admin: 03/03/22 08:41 Dose: 50 mcg Documented by: CECILIA Labs CBC & Chem 7: 03/02/22 06:49 03/03/22 05:33 Labs: Laboratory Results - last 24 hr 03/02/22 03/02/22 03/03/22 12:05 12:05 05:33 Anion Gap 14 Estim Creat Clear Calc 67.0 Estimated GFR > 60 Random Glucose 124 H Calcium 9.2 Urine Color YELLOW Urine Appearance CLEAR Urine pH 7.5 Ur Specific [place] 1.010 Urine Protein TRACE Urine Glucose (UA) NEG Urine Ketones NEG Urine Blood TRACE Urine Nitrite NEG Ur Leukocyte Esterase NEG Urine RBC 0-2 Urine WBC 0-2 Ur Squamous Epith Cells TRACE Urine Bacteria NONE Urine Opiates Screen Not Detected Urine Fentanyl Screen Not Detected Ur Barbiturates Screen Not Detected Ur Phencyclidine Scrn Not Detected Ur Amphetamines Screen Not Detected U Benzodiazepines Scrn Not Detected Urine Cocaine Screen Not Detected U Marijuana (THC) Screen Not Detected Quality Stroke Does the patient have a stroke diagnosis?: No VTE Prior VTE?: No VTE Risk Level:: Medical - moderate - high VTE Device Contraindication: Treatment Not Indicated VTE Drug Contraindication: N/A - Med Ordered
--- NOTE | 2022-03-03 09:08 | PM.PNPUL ---
Subjective Subjective Date of Service: 03/03/22 Interval history: The patient was seen on exam. She slept well with the noninvasive ventilator. She is tolerating a settings. I will send a prescriptions with the new settings to her [employer], [employer]. She will need to get a venous gas. I am hopeful that her acid-base status is stable and she can go home today. Objective Data Labs CBC & Chem 7: 03/02/22 06:49 03/03/22 05:33 Labs: Laboratory Results - last 24 hr 03/02/22 03/02/22 03/03/22 12:05 12:05 05:33 Sodium 141 Potassium 4.8 Chloride 101 Carbon Dioxide 31 H Anion Gap 14 BUN 17 H Creatinine 0.76 Estim Creat Clear Calc 67.0 Estimated GFR > 60 Random Glucose 124 H Calcium 9.2 Urine Color YELLOW Urine Appearance CLEAR Urine pH 7.5 Ur Specific [place] 1.010 Urine Protein TRACE Urine Glucose (UA) NEG Urine Ketones NEG Urine Blood TRACE Urine Nitrite NEG Ur Leukocyte Esterase NEG Urine RBC 0-2 Urine WBC 0-2 Ur Squamous Epith Cells TRACE Urine Bacteria NONE Urine Opiates Screen Not Detected Urine Fentanyl Screen Not Detected Ur Barbiturates Screen Not Detected Ur Phencyclidine Scrn Not Detected Ur Amphetamines Screen Not Detected U Benzodiazepines Scrn Not Detected Urine Cocaine Screen Not Detected U Marijuana (THC) Screen Not Detected Review of Systems Constitutional: Denies fatigue and Denies weakness Eyes: Denies change in vision Denies sore throat Cardiovascular: Denies chest pain and Reports dyspnea Respiratory: Denies chest congestion, Reports cough, Denies pain on inspiration, Denies pain with cough and Reports dyspnea Gastrointestinal: Denies abdominal pain Musculoskeletal: Reports abnormal gait and Reports muscle weakness Reports abnormal gait, Reports memory loss and Denies weakness Psychiatric: Reports depression and Reports memory loss Endocrine: Denies fatigue Physical Exam Vital Signs: Vital Signs: Last Vital Signs Temp 97.2 F 03/03/22 04:00 Pulse 69 03/03/22 08:10 Resp 11 L 03/03/22 08:10 BP 117/69 03/03/22 08:10 Pulse Ox 97 03/03/22 08:10 Oxygen Flow Rate 3 03/01/22 14:54 BMI result Body Mass Index 29.2 Const: General: alert Neck: Neck: Yes normal visual inspection, Yes full ROM and Yes no lymphadenopathy Chest: Chest palpation & inspection: normal inspection of the chest Resp: Auscultation: crackles bilateral at the base and diminished lung sounds Cardio: Rate: regular rate Rhythm: regular rhythm Heart sounds: S1 normal heart sound present and S2 normal heart sound present GI: Palpation (GI): Soft to palpation and nontender Auscultation: normal bowel sounds Skin: General skin exam: rashes and/or lesions noted Procedures Date of Service Date of Service: 03/03/22 Assessment and Plan Assessment and plan (1) Acute and chronic respiratory failure with hypercapnia: Status: Acute (2) COPD exacerbation: Status: Acute (3) Bronchopneumonia: Status: Acute Plan Continue noninvasive ventilator with current settings AVAPS tidal volume 600, EPAP 8 to 12, pressure support 15-30, will keep the respiratory rate of 8 with an i time 1sec Venous gas this morning Start doxycycline in view of the crackles on examination Prednisone taper Hopefully she can go home today if venous gas is stable and she is better She has follow-up with Pulmonary in 2-3 weeks for Time Spent With Patient Time: Total time spent is greater than 50% in coordination of care (as documented) at patient's floor/unit and/or counseling patient: Progress Note: Quality Stroke Does the patient have a stroke diagnosis?: No
[2022-03-03 10:02] LABS: VBG Base Excess 10.7 mmol/L; VBG HCO3 39 mmol/L (22-26); VBG pCO2 70 mmHg; VBG pH 7.35 (7.32-7.43); VBG pO2 38 mmHg
[2022-03-03 10:02] LABS: Venous Blood Gas Refer to POC result
--- NOTE | 2022-03-03 12:21 | P.F2F_ITS ---
Service Date Service Date: 03/03/22 Encounter Date of encounter: 03/03/22 Reasons for Services Signs and symptoms assessed: copd excerebation Reason for physical therapy: home safety and mobility, therapeutic exercises, restore joint function, gait/transfer training, assess need for DME, ADL training, energy conservation and other MD Overseeing Care: Erick Jade Homebound: Leaving the home is medically contraindicated at this time without the asist of a device and/or another person due th the listed conditions above and below. Reason homebound: weakness related to hospital stay Homebound supporting statement: Patient is acute on chronic respiratory failure secondary to COPD exacerbation and multiple comorbidities and generalized weak in help to go to appointments. Certification: Based on the above findings, I certify that this patient is confined to the home and needs intermittent senior living care, physical therapy and/or speech therapy, or continues to need occupational therapy. The patient is under my care, and I have initiated the establishment of the plan of care. The patient will be followed by a physician who will periodically review the plan of care.
--- NOTE | 2022-03-03 15:35 | P.DS_ITS ---
DS: Providers Provider Date of Service: 03/03/22 Date of admission: 03/01/22 20:11 Primary care physician: Erick Jade MD Consults: 03/01/22 17:17 Consult to Pulmonology Stat Consulting Provider: Caden Acharya Reason for consultation: acute on chronic hypercarbic resp failure Has provider been notified: Yes DS: Diagnosis Discharge Diagnosis (1) Acute and chronic respiratory failure with hypercapnia: Status: Acute (2) COPD exacerbation: Status: Acute (3) Bronchopneumonia: Status: Acute DS: Summary Hospital Course Hospital Course: 66-year-old female with past medical history chronic respiratory failure with history of hypercapnia on 3 L of O2 at baseline, bipolar depression, CO2 retention,history of insomnia, I LD, presents to the hospital sent low heel builder for CO2 retention.? Patient reports that for the past 1 week she has had increased confusion as well as fall, she went to see a low heel builder, he did an ABG in the office and found her to be hypercapnic therefore sent her to the ED for BiPAP.? Patient currently on the BiPAP, reports that she is feeling better, reports a cough with increased? sputum production, increased dyspnea, otherwise reports no headache or change in vision, no chest pain, no abdominal pain nausea or vomiting, no diarrhea, no constipation, no urinary symptoms and no lower extremity edema.? On arrival to the ED patient hemodynamically stable with a respiratory rate of 27, Labs are significant for WBC count of 6.3,? hemoglobin of 11.8,? hematocrit 40.8, ABG? at? low heel builder's office showed pH of 7.25 with pCO2 of 102.? Patient was placed on BiPAP in the ED with improvement of her VBG.? Her low heel builder wanted her to be on the BiPAP overnight for correction of her hypercapnia. ?chest x-ray show CVS COPD with bullous changes throughout the lungs, dilated pulmonary artery suggestion of pulmonary hypertension ? Given her confusion, hypercapnia, as well COPD exacerbation, admission to the hospital for further management? and close monitoring Hospital course: Patient came with acute on chronic hypoxemic/hypercarbic respiratory failure secondary to COPD exacerbation-patient was started on nebs, steroids and also BiPAP-patient seems to be improved, seen by Pulmonary adjusted patient's home home BiPAP setting, patient was started on prednisone upper and p.o. doxycycline and going home with that. PT recommended home with services. Above management discussed with the patient in detail length she understand and in agreement with the above plan, time spent 50 minutes and 50% time spent on counseling. Significant findings: As above. Procedures performed: None. Treatment and response: As above. Complications: None. Time Spent with Patient Time attestation: Total time spent providing and/or coordinating discharge services: Discharge coordination time: Greater than 30 minutes Quality: Safe Use of Opioids Does Pt have an Active Cancer Diagnosis on the Problem List?: No Quality: Stroke Does the patient have a stroke diagnosis?: No Physical Exam Vital Signs: Vital Signs: Last Vital Signs Temp 97.2 F 03/03/22 04:00 Pulse 70 03/03/22 11:12 Resp 20 03/03/22 11:12 BP 117/69 03/03/22 08:10 Pulse Ox 97 03/03/22 08:10 Oxygen Flow Rate 3 03/01/22 14:54 BMI result Body Mass Index 29.2 Appearance: Alert.? Oriented X3.? not in distress. cvs: rrr, [id number] , no murmur res: clear to auscultation ,no rhonchii or wheezing abd: no rebound or guarding ,nt, bs present. ext pulses present , no cyanosis , neuro: axo3 , nonfocal. DS: Data Data Completed and Pending Completed studies during hospitalization [Text1]: Procedures Assistance with Respiratory Ventilation, Less than 24 Consecutive Hours, Continuous Positive Airway Pressure (11/18/21) Labs on day of discharge: Laboratory Results - last 24 hr 03/03/22 03/03/22 05:33 09:46 VBG pH 7.35 VBG pCO2 70 VBG pO2 38 VBG HCO3 39 H VBG O2 Saturation 52.0 VBG Base Excess 10.7 Sodium 141 Potassium 4.8 Chloride 101 Carbon Dioxide 31 H Anion Gap 14 BUN 17 H Creatinine 0.76 Estim Creat Clear Calc 67.0 Estimated GFR > 60 Random Glucose 124 H Calcium 9.2 Additional Comments Additional comments: CT/CT chest wo con IMPRESSION: Severe COPD with bullous changes throughout the lungs. Dilated pulmonary artery suggestive of pulmonary hypertension.? ? Fleischner guidelines were followed. Discharge Plan Discharge Patient Disposition: Home Health Service Discharge Diagnosis: copd , toxic metabolic encephalopathy Referrals: Erick Jade MD [Primary Care Provider] - 1 Week Caden Achayra MD [Physician] - 1 Week (follow up outpatienlty) Discharge Medications: New docusate sodium 100 mg Capsule 100 mg PO DAILY PRN (Reason: Constipation) Qty: 30 0RF doxycycline hyclate 100 mg Tablet 100 mg PO Q12H Qty: 12 0RF prednisone 10 mg tablet See Taper mg PO DAILY Qty: 23 0RF Taper: Prednisone 40 mg daily for 2 Days and 0 Hour 30 mg daily for 3 Days and 0 Hour 20 mg daily for 3 Days and 0 Hour 10 mg daily for 1 Day and 0 Hour Rx Instructions: after completing the taper go back her regular dose of 10 mg prednisone daily. Continued aripiprazole [Abilify] 10 mg Tablet 10 mg PO DAILY 0RF acetaminophen 500 mg Tablet 1,000 mg PO TID PRN (Reason: Headache) 0RF aspirin 81 mg Tablet,Delayed Release (Dr/Ec) 81 mg PO DAILY 0RF Breo Ellipta 200-25 mcg/dose Blister With Device 1 inh INHALATION DAILY 0RF alendronate [Fosamax] 70 mg Tablet 70 mg PO SA 0RF lamotrigine 150 mg Tablet 300 mg PO BEDTIME 0RF lamotrigine 200 mg Tablet 200 mg PO DAILY 0RF magnesium oxide 400 mg magnesium Tablet 400 mg PO BID 0RF montelukast 10 mg Tablet 10 mg PO BEDTIME 0RF multivitamin Tablet 1 tab PO DAILY 0RF albuterol sulfate [Proventil HFA] 90 mcg/actuation Hfa Aerosol Inhaler 2 puff INHALATION QID PRN (Reason: Respiratory Distress) 0RF selenium sulfide 1 % Shampoo 10 ml TOPICAL 2XW 0RF Viibryd 20 mg Tablet 20 mg PO DAILY 0RF cholecalciferol (vitamin D3) [Vitamin D3] 50 mcg (2,000 unit) Capsule 50 mcg PO DAILY 0RF Spiriva with HandiHaler 18 mcg Capsule, W/Inhalation Device 1 cap INHALATION DAILY 0RF mirtazapine 15 mg tablet 15 mg PO BEDTIME 0RF gabapentin 300 mg Capsule 300 mg PO BEDTIME 0RF polyethylene glycol 3350 17 gram/dose Powder 17 g PO DAILY PRN (Reason: Constipation) 0RF Rx Instructions: mix 17 g into 4 to 8 oz of fluid oxymetazoline 0.05 % [place],Non-Aerosol 2 spray INTRANASAL QID PRN (Reason: Nasal Congestion) 0RF Rx Instructions: do not use more than 3 days in a row acetazolamide 250 mg tablet 250 mg PO DAILY 0RF metoprolol succinate 50 mg Tablet Extended Release 24 Hr 50 mg PO DAILY 0RF theophylline 300 mg tablet extended release 12 hr 300 mg PO Q12H 30 Days Qty: 60 5RF ipratropium bromide 42 mcg (0.06 %) spray,non-aerosol 2 spray intranasal TID 30 Days Qty: 15 3RF Rx Instructions: administer into each nostril ondansetron HCl [Zofran] 4 mg tablet 4 mg PO Q8H PRN (Reason: Nausea) 0RF sennosides [Senokot] 8.6 mg tablet 8.6 mg PO BEDTIME 0RF benzonatate 200 mg capsule 200 mg PO BID PRN (Reason: cough) 30 Days Qty: 60 1RF prednisone 10 mg tablet 10 mg PO DAILY 30 Days Qty: 30 3RF Discharge Orders: Discharge Order (Routine); Ordered 03/03/22 Ordered By: Kelly Pruett Diet: advance to usual diet Activity on Discharge: As tolerated Stand Alone Forms: Patient Portal Discharge page Care Plan Goals: Patient came with acute on chronic hypoxemic/hypercarbic respiratory failure secondary to COPD exacerbation-patient was started on nebs, steroids and also BiPAP-patient seems to be improved, seen by Pulmonary adjusted patient's home home BiPAP setting, patient was started on prednisone upper and p.o. doxycycline and going home with that. PT recommended home with services. Health Concerns: As above. Plan of Treatment: As above. Assessment: As above. Discharge Date/Time: 03/03/22 14:53
== END 2022-03-03 14:53 | disposition home health service (06) | DRG 190 ==
LOC: HO.ED 17:41 → HO.EDOVER 20:18
PROVIDERS: Hospitalist; Physician Assistant; Admitting Provider Internal Medicine; Emergency Provider Emergency Medicine; PCP Internal Medicine Rheumatology; Visit Provider Internal Medicine
DX: J44.1 Chronic obstructive pulmonary disease with (acute) exacerbation (principal); J96.22 Acute and chronic respiratory failure with hypercapnia; J96.21 Acute and chronic respiratory failure with hypoxia; J18.0 Bronchopneumonia, unspecified organism; E87.2 Acidosis; G93.49 Other encephalopathy; F31.9 Bipolar disorder, unspecified; I27.20 Pulmonary hypertension, unspecified; Z20.822 Contact with and (suspected) exposure to COVID-19; Z87.891 Personal history of nicotine dependence; Z99.81 Dependence on supplemental oxygen; Z88.2 Allergy status to sulfonamides; Z88.5 Allergy status to narcotic agent; Z79.51 Long term (current) use of inhaled steroids; Z79.82 Long term (current) use of aspirin; Z79.899 Other long term (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 therapy
CPT/HCPCS: 36415; 71250; 80048; 80076; 80307; 81001; 82803; 83735; 83880; 85025; 87635; 94640; 94660; 97162; 97530; 99285; 99291; J1650; J2920

== ENCOUNTER → 2022-03-24 10:54 | Outpatient (BNVA) | payer OTHER, SELFPAY | PROVIDERS: PCP Internal Medicine Rheumatology; Visit Provider Hospitalist | DX: J96.22 Acute and chronic respiratory failure with hypercapnia (principal); J44.9 Chronic obstructive pulmonary disease, unspecified; J30.0 Vasomotor rhinitis; G47.33 Obstructive sleep apnea (adult) (pediatric); R41.82 Altered mental status, unspecified | CPT/HCPCS: 99212 ==

== ENCOUNTER 2022-03-30 11:10 | Outpatient (REF) | payer OTHER, SELFPAY ==
[2022-03-30 11:26] LABS: MANUAL DIFF FLAG NO
[2022-03-30 11:32] LABS: Venous Blood Gas Refer to POC result
[2022-03-30 11:34] LABS: VBG Base Excess 13.2 mmol/L; VBG HCO3 41 mmol/L (22-26); VBG pCO2 72 mmHg; VBG pH 7.37 (7.32-7.43); VBG pO2 129 mmHg
[2022-03-30 12:12] LABS: Basophils Percent Auto 0.5 % (0-2); Eosinophils Absolute Auto 0.2 X10*3/uL (0.0-0.4); Eosinophils Percent Auto 2.2 % (0-4); Hematocrit 40.3 % (37.0-47.0); Hemoglobin 11.9 g/dl (12.0-16.0); Imm Gran Abs Auto 0.06 X10*3/uL (0.00-0.03); Imm Gran Pct Auto 0.7 % (0.0-0.4); Lymphocytes Absolute Auto 0.6 X10*3/uL (1.2-4.9); Mean Corpuscular HGB Conc 29.5 g/dl (31.0-35.0); Mean Corpuscular Hemoglobin 29.1 pg (27.0-33.0); Mean Corpuscular Volume 98.5 fL (80.0-98.0); Mean Platelet Volume 9.3 fL (9.4-12.3); Monocytes Absolute Auto 0.6 X10*3/uL (0.1-1.2); Monocytes Percent Auto 7.7 % (2-11); Neutrophils Absolute Auto 6.8 x10*3/uL (2.0-8.3); Neutrophils Percent Auto 81.9 % (45-73); Platelet Count 496 X10*3/uL (160-400); Red Blood Count 4.09 X10*6/uL (4.20-5.50); Red Cell Distribution Width 15.6 % (11.0-16.0); White Blood Count 8.3 X10*3/uL (4.8-10.8)
[2022-03-30 12:36] LABS: Anion Gap 11 (12-20); Blood Urea Nitrogen 20 mg/dL (9-16); Calcium 9.5 mg/dL (8.4-10.2); Carbon Dioxide 37 mmol/L (22-29); Chloride 97 mmol/L (96-108); Estimated Glomerular Filt Rate > 60; Glucose Random 110 mg/dL (60-115); Potassium 4.3 mmol/L (3.3-5.1); Sodium 141 mmol/L (135-145)
[2022-03-31 07:29] LABS: Theophylline 6.2
== END 2022-03-30 11:11 | disposition home or self-care (01) ==
LOC: HO.LAB 11:10
PROVIDERS: PCP Internal Medicine Rheumatology; Visit Provider Hospitalist
DX: J44.9 Chronic obstructive pulmonary disease, unspecified (principal); J96.10 Chronic respiratory failure, unspecified whether with hypoxia or hypercapnia; Z79.899 Other long term (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 therapy
CPT/HCPCS: 36415; 80048; 80198; 82803; 85025

== ENCOUNTER 2022-04-13 08:45 | Inpatient (IN) | payer OTHER, SELFPAY ==
[2022-04-13] VITALS (27 sets, daily range): BP systolic 107–196; BP diastolic 36–95; PULSE 60–95; RESP 12–25; TEMP 36.4; O2SAT 73–100; BMI 29.2; BMI 29.5
--- NOTE | ~2022-04-13 | XR_ITS ---
EXAMINATION: XR CHEST CLINICAL INFORMATION: Chest pain COMPARISON: Previous chest CT February 2022 and chest x-ray October 2021 TECHNIQUE: Frontal view of the chest was obtained. FINDINGS: The cardiac and mediastinal contours are stable. There are emphysematous changes. There are coarse lung markings. There is maybe atelectasis at the left lung base. No definite pneumonia or evidence of pulmonary edema is seen. There is no pleural effusion or pneumothorax. There are degenerative changes of the spine. XR/XR chest 1V IMPRESSION: Emphysema and coarse lung markings. Question atelectasis at the left lung base. No definite evidence of pulmonary edema or pneumonia.
--- NOTE | 2022-04-13 08:53 | ECG_ITS ---
Test Reason : shortness of breath Blood Pressure : / mmHG Vent. Rate : 075 BPM Atrial Rate : 075 BPM P-R Int : 140 ms QRS Dur : 084 ms QT Int : 354 ms P-R-T Axes : 066 081 041 degrees QTc Int : 395 ms Normal sinus rhythm Possible Left atrial enlargement cannot exclude old Septal infarct , age undetermined Abnormal ECG When compared with ECG of 18-NOV-2021 11:48, Vent. rate has decreased BY 46 BPM Nonspecific T wave abnormality has replaced inverted T waves in Inferior leads Nonspecific T wave abnormality no longer evident in Lateral leads Referred By: Sergio Henry Electronically Signed By:JOYCE CEBALLOS
[2022-04-13 09:26] LABS: MANUAL DIFF FLAG NO
[2022-04-13 09:28] LABS: Basophils Absolute Auto 0.1 X10*3/uL (0.0-0.2); Basophils Percent Auto 0.9 % (0-2); Eosinophils Absolute Auto 0.2 X10*3/uL (0.0-0.4); Eosinophils Percent Auto 2.8 % (0-4); Hematocrit 41.5 % (37.0-47.0); Hemoglobin 12.2 g/dl (12.0-16.0); Imm Gran Abs Auto 0.02 X10*3/uL (0.00-0.03); Imm Gran Pct Auto 0.4 % (0.0-0.4); Lymphocytes Absolute Auto 0.9 X10*3/uL (1.2-4.9); Lymphocytes Percent Auto 16.6 % (20-40); Mean Corpuscular HGB Conc 29.4 g/dl (31.0-35.0); Mean Corpuscular Hemoglobin 29.4 pg (27.0-33.0); Monocytes Absolute Auto 0.5 X10*3/uL (0.1-1.2); Neutrophils Absolute Auto 3.8 x10*3/uL (2.0-8.3); Neutrophils Percent Auto 70.3 % (45-73); Platelet Count 346 X10*3/uL (160-400); Red Blood Count 4.15 X10*6/uL (4.20-5.50); Red Cell Distribution Width 14.7 % (11.0-16.0); White Blood Count 5.4 X10*3/uL (4.8-10.8)
[2022-04-13 09:34] LABS: INTERNATIONAL NORM RATIO 0.9 (0.9-1.1); Prothrombin Time 10.5 SEC (9.9-13.0)
--- NOTE | 2022-04-13 09:42 | ED.SOB ---
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 Patient denies any chest pain a any fever she appear lethargic but easily arousable MD elicited complaint: shortness of breath Pertinent past history: COPD Onset (ago): day(s) (1) Timing: constant Severity: moderate Exacerbating factors: nothing Relieving factors: nothing Known history of: COPD Associated symptoms: denies other symptoms Treatment prior to arrival: oxygen Related Data Home oxygen amount: 3 liters Home Medications Medication Instructions Recorded Confirmed acetaminophen 500 mg tablet 1,000 mg PO TID PRN 02/09/21 04/13/22 albuterol sulfate 90 mcg/actuation 2 puff INHALATION QID PRN 02/09/21 04/13/22 aerosol inhaler (Proventil HFA) alendronate 70 mg tablet (Fosamax) 70 mg PO SA 02/09/21 04/13/22 aripiprazole 10 mg tablet (Abilify) 10 mg PO DAILY 02/09/21 04/13/22 aspirin 81 mg tablet,delayed 81 mg PO DAILY 02/09/21 04/13/22 release cholecalciferol (vitamin D3) 50 50 mcg PO DAILY 02/09/21 04/13/22 mcg (2,000 unit) capsule (Vitamin D3) fluticasone furoate 200 1 inh INHALATION DAILY 02/09/21 04/13/22 mcg-vilanterol 25 mcg/dose inhalation powder (Breo Ellipta) lamotrigine 150 mg tablet 300 mg PO BEDTIME 02/09/21 04/13/22 lamotrigine 200 mg tablet 200 mg PO DAILY 02/09/21 04/13/22 magnesium oxide 400 mg PO BID 02/09/21 04/13/22 montelukast 10 mg tablet 10 mg PO BEDTIME 02/09/21 04/13/22 multivitamin 1 tab PO DAILY 02/09/21 04/13/22 tiotropium bromide 18 mcg capsule 1 cap INHALATION DAILY 02/09/21 04/13/22 with inhalation device (Spiriva with HandiHaler) vilazodone 20 mg tablet (Viibryd) 20 mg PO DAILY 02/09/21 04/13/22 mirtazapine 15 mg tablet 15 mg PO BEDTIME 09/10/21 04/13/22 sennosides 8.6 mg tablet (Senokot) 8.6 mg PO BEDTIME 09/10/21 04/13/22 metoprolol succinate 50 mg 50 mg PO DAILY 11/18/21 04/13/22 tablet,extended release 24 hr prednisone 10 mg tablet 10 mg PO DAILY 04/13/22 04/13/22 Previous Rx's Medication Instructions Recorded ipratropium bromide 42 mcg (0.06 2 spray INTRANASAL TID 30 Days #15 05/12/21 %) nasal spray ml theophylline 300 mg 300 mg PO Q12H 30 Days #60 tab 05/12/21 tablet,extended release,12 hr docusate sodium 100 mg capsule 100 mg PO DAILY PRN #30 cap 03/03/22 Allergies Allergy/AdvReac Type Severity Reaction Status Date / Time codeine [Codeine] Allergy Intermediate RESTLESS/RA Verified 03/24/22 11:02 SH haloperidol [Haldol] Allergy Intermediate Palpitation Verified 03/24/22 11:02 s Sulfa (Sulfonamide Allergy Intermediate HIVES Verified 03/24/22 11:02 Antibiotics) Review of Systems Constitutional: Constitutional: Reports no additional constitutional complaints Eyes: Eyes: Reports no additional eye complaints ENT: Reports system reviewed and no additional complaints, except as documented Cardiovascular: Cardiovascular: Reports no additional cardiovascular complaints Respiratory: Respiratory: Reports no additional respiratory complaints Musculoskeletal: Musculoskeletal: Reports no additional musculoskeletal complaints Neurologic: Reports system reviewed and no additional complaints, except as documented [facility] Past Medical History Medical History Acute and chronic respiratory failure with hypercapnia Acute metabolic encephalopathy Acute on chronic respiratory failure with hypoxia and hypercapnia Bipolar depression Bronchitis Bronchopneumonia Chest pain Chronic respiratory alkalosis Chronic respiratory failure CO2 retention COPD (chronic obstructive pulmonary disease) Eczema Fall ILD (interstitial lung disease) Insomnia Limb swelling Osteopenia (~2012) Tubular adenoma of colon (~2006) Vasomotor rhinitis Surgical History History of carpal tunnel surgery (~2000) History of cataract surgery (~2018) History of colonoscopy History of left inguinal hernia repair (~1995) History of tracheostomy (~2016) History of ventral hernia repair (~2003) Family History Family History Other Hypertension Social History Social History Household Members: None Housing: Assisted Living Facility Housing Other:: person comes to do housework. Do you presently have visiting nurse or other home services: No Alcohol intake: unknown Patient Tobacco Use Status: Former Tobacco user Quit Date: 2018 Tobacco use type: Cigarette Years Smoked: 20+ years e-Cigarette/Vaping Use: Never Used Second Hand Smoke Exposure: No Advance Directives: Yes Advance Directives on File: Yes Advance Directives Date on File: 11/30/21 service: No Current occupational status: disabled Physical Exam Vital Signs: Vital Signs: Last Vital Signs Pulse 87 04/13/22 11:56 Resp 16 04/13/22 11:56 BP 144/61 H 04/13/22 11:56 Pulse Ox 90 L 04/13/22 11:56 Oxygen Flow Rate 3 04/13/22 08:52 BMI result Body Mass Index 29.2 Const: General: cooperative and no acute distress Nutritional Appearance: well nourished Orientation/consciousness: oriented to place Limitations: no limitations HEENT: Head: Yes No palpable skull fracture present General nose exam: Normal external nose present Face and sinus: Yes normal facial exam Teeth and gingiva: dentition normal Throat: Yes posterior oropharynx normal Neck: Neck: Yes normal visual inspection and Yes full ROM Chest: Chest palpation & inspection: normal inspection of the chest Resp: Effort & Inspection: normal respiratory effort Auscultation: rhonchi Cardio: Jugular venous distension: no JVD Rate: regular rate Rhythm: regular rhythm GI: Inspection: Yes normal to inspection Palpation (GI): Soft to palpation, not firm and nontender Percussion: Yes normal to percussion : General: Yes no CVA tenderness Back/Spine/Pelvis: Back: no CVA tenderness Neuro: General: oriented to place Cranial nerves: Yes CN's II-XII intact bilaterally Course Reevaluation(s) Reevaluation #1: ABG very show improvement will admit to ICU poke with Dr Viri MDM - SOB/Dyspnea Lab Data Attestation: I reviewed the patient's lab results. Result diagrams: 04/13/22 09:19 04/13/22 09:18 Labs: Lab Results 04/13/22 04/13/22 04/13/22 Range/Units 09:18 09:18 09:18 WBC (4.8-10.8) X10*3/uL RBC (4.20-5.50) X10*6/uL Hgb (12.0-16.0) g/dl Hct (37.0-47.0) % MCV (80.0-98.0) fL MCH (27.0-33.0) pg MCHC (31.0-35.0) g/dl RDW (11.0-16.0) % Plt Count (160-400) X10*3/uL MPV (9.4-12.3) fL Immature Gran % (Auto) (0.0-0.4) % Neut % (Auto) (45-73) % Lymph % (Auto) (20-40) % [place] % (Auto) (2-11) % Eos % (Auto) (0-4) % Baso % (Auto) (0-2) % Lymph # (Auto) (1.2-4.9) X10*3/uL [place] # (Auto) (0.1-1.2) X10*3/uL Eos # (Auto) (0.0-0.4) X10*3/uL Baso # (Auto) (0.0-0.2) X10*3/uL Abs Immat Gran (auto) (0.00-0.03) X10*3/uL Absolute Neuts (auto) (2.0-8.3) x10*3/uL Absolute Nucleated RBC (0.0-0.012) X10*3/uL Nucleated RBC % (auto) (0.0-0.2) /100WBC PT 10.5 (9.9-13.0) SEC INR 0.9 (0.9-1.1) O2 Saturation % ABG pH at Pt Temp (7.35-7.45) ABG pCO2 at Pt Temp (32-45) mmHg ABG pO2 at Pt Temp (83-108) mmHg ABG HCO3 (22-26) mmol/L ABG Base Excess (Actual) mmol/L VBG pH (7.32-7.43) VBG pCO2 mmHg VBG pO2 mmHg VBG HCO3 (22-26) mmol/L VBG O2 Saturation % VBG Base Excess mmol/L Sodium 145 (135-145) mmol/L Potassium 3.7 (3.3-5.1) mmol/L Chloride 100 (96-108) mmol/L Carbon Dioxide 39 H (22-29) mmol/L Anion Gap 10 L (12-20) BUN 7 L D (9-16) mg/dL Creatinine 0.82 (0.5-1.4) mg/dL Estim Creat Clear Calc 62.1 Estimated GFR > 60 Random Glucose 111 (60-115) mg/dL Calcium 9.0 (8.4-10.2) mg/dL Total Bilirubin 0.3 (0.0-1.0) mg/dL AST 22 (5-31) U/L ALT 18 (0-31) U/L Alkaline Phosphatase 70 (39-117) U/L Troponin I High Sens 4.7 D (<3.5-17.0) ng/L B-Natriuretic Peptide 91 (<100) pg/mL Total Protein 7.3 (6.5-8.0) g/dL Albumin 4.4 (3.5-5.0) g/dL COVID-19 (EDU) (Negative) COVID-19 Clin Com Influenza Type A (PCR) (Negative) Influenza Type B (PCR) (Negative) RSV RNA Qual (PCR) (Negative) SARS-CoV-2 RNA (RT-PCR) (Negative) 04/13/22 04/13/22 04/13/22 Range/Units 09:18 09:19 10:14 WBC 5.4 (4.8-10.8) X10*3/uL RBC 4.15 L (4.20-5.50) X10*6/uL Hgb 12.2 (12.0-16.0) g/dl Hct 41.5 (37.0-47.0) % MCV 100.0 H (80.0-98.0) fL MCH 29.4 (27.0-33.0) pg MCHC 29.4 L (31.0-35.0) g/dl RDW 14.7 (11.0-16.0) % Plt Count 346 D (160-400) X10*3/uL MPV 9.0 L (9.4-12.3) fL Immature Gran % (Auto) 0.4 (0.0-0.4) % Neut % (Auto) 70.3 (45-73) % Lymph % (Auto) 16.6 L (20-40) % [place] % (Auto) 9.0 (2-11) % Eos % (Auto) 2.8 (0-4) % Baso % (Auto) 0.9 (0-2) % Lymph # (Auto) 0.9 L (1.2-4.9) X10*3/uL [place] # (Auto) 0.5 (0.1-1.2) X10*3/uL Eos # (Auto) 0.2 (0.0-0.4) X10*3/uL Baso # (Auto) 0.1 (0.0-0.2) X10*3/uL Abs Immat Gran (auto) 0.02 (0.00-0.03) X10*3/uL Absolute Neuts (auto) 3.8 (2.0-8.3) x10*3/uL Absolute Nucleated RBC 0.000 (0.0-0.012) X10*3/uL Nucleated RBC % (auto) 0.0 (0.0-0.2) /100WBC PT (9.9-13.0) SEC INR (0.9-1.1) O2 Saturation % ABG pH at Pt Temp (7.35-7.45) ABG pCO2 at Pt Temp (32-45) mmHg ABG pO2 at Pt Temp (83-108) mmHg ABG HCO3 (22-26) mmol/L ABG Base Excess (Actual) mmol/L VBG pH (7.32-7.43) VBG pCO2 mmHg VBG pO2 mmHg VBG HCO3 (22-26) mmol/L VBG O2 Saturation % VBG Base Excess mmol/L Sodium (135-145) mmol/L Potassium (3.3-5.1) mmol/L Chloride (96-108) mmol/L Carbon Dioxide (22-29) mmol/L Anion Gap (12-20) BUN (9-16) mg/dL Creatinine (0.5-1.4) mg/dL Estim Creat Clear Calc Estimated GFR Random Glucose (60-115) mg/dL Calcium (8.4-10.2) mg/dL Total Bilirubin (0.0-1.0) mg/dL AST (5-31) U/L ALT (0-31) U/L Alkaline Phosphatase (39-117) U/L Troponin I High Sens (<3.5-17.0) ng/L B-Natriuretic Peptide (<100) pg/mL Total Protein (6.5-8.0) g/dL Albumin (3.5-5.0) g/dL COVID-19 (EDU) Negative (Negative) COVID-19 Clin Com See Note Influenza Type A (PCR) NEGATIVE (Negative) Influenza Type B (PCR) NEGATIVE (Negative) RSV RNA Qual (PCR) NEGATIVE (Negative) SARS-CoV-2 RNA (RT-PCR) NEGATIVE (Negative) 04/13/22 04/13/22 Range/Units 10:49 11:26 WBC (4.8-10.8) X10*3/uL RBC (4.20-5.50) X10*6/uL Hgb (12.0-16.0) g/dl Hct (37.0-47.0) % MCV (80.0-98.0) fL MCH (27.0-33.0) pg MCHC (31.0-35.0) g/dl RDW (11.0-16.0) % Plt Count (160-400) X10*3/uL MPV (9.4-12.3) fL Immature Gran % (Auto) (0.0-0.4) % Neut % (Auto) (45-73) % Lymph % (Auto) (20-40) % [place] % (Auto) (2-11) % Eos % (Auto) (0-4) % Baso % (Auto) (0-2) % Lymph # (Auto) (1.2-4.9) X10*3/uL [place] # (Auto) (0.1-1.2) X10*3/uL Eos # (Auto) (0.0-0.4) X10*3/uL Baso # (Auto) (0.0-0.2) X10*3/uL Abs Immat Gran (auto) (0.00-0.03) X10*3/uL Absolute Neuts (auto) (2.0-8.3) x10*3/uL Absolute Nucleated RBC (0.0-0.012) X10*3/uL Nucleated RBC % (auto) (0.0-0.2) /100WBC PT (9.9-13.0) SEC INR (0.9-1.1) O2 Saturation 90.0 % ABG pH at Pt Temp 7.31 L (7.35-7.45) ABG pCO2 at Pt Temp 91 H* (32-45) mmHg ABG pO2 at Pt Temp 60 L (83-108) mmHg ABG HCO3 46 H (22-26) mmol/L ABG Base Excess (Actual) 15.7 mmol/L VBG pH 7.31 L (7.32-7.43) VBG pCO2 122 mmHg VBG pO2 45 mmHg VBG HCO3 63 H (22-26) mmol/L VBG O2 Saturation 75.0 % VBG Base Excess 29.3 mmol/L Sodium (135-145) mmol/L Potassium (3.3-5.1) mmol/L Chloride (96-108) mmol/L Carbon Dioxide (22-29) mmol/L Anion Gap (12-20) BUN (9-16) mg/dL Creatinine (0.5-1.4) mg/dL Estim Creat Clear Calc Estimated GFR Random Glucose (60-115) mg/dL Calcium (8.4-10.2) mg/dL Total Bilirubin (0.0-1.0) mg/dL AST (5-31) U/L ALT (0-31) U/L Alkaline Phosphatase (39-117) U/L Troponin I High Sens (<3.5-17.0) ng/L B-Natriuretic Peptide (<100) pg/mL Total Protein (6.5-8.0) g/dL Albumin (3.5-5.0) g/dL COVID-19 (EDU) (Negative) COVID-19 Clin Com Influenza Type A (PCR) (Negative) Influenza Type B (PCR) (Negative) RSV RNA Qual (PCR) (Negative) SARS-CoV-2 RNA (RT-PCR) (Negative) Imaging Data Chest x-ray: Radiologist's impression: CLINICAL INFORMATION: Chest pain COMPARISON: Previous chest CT February 2022 and chest x-ray October 2021 TECHNIQUE: Frontal view of the chest was obtained. FINDINGS: The cardiac and mediastinal contours are stable. There are emphysematous changes. There are coarse lung markings. There is maybe atelectasis at the left lung base. No definite pneumonia or evidence of pulmonary edema is seen. There is no pleural effusion or pneumothorax. There are degenerative changes of the spine. XR/XR chest 1V IMPRESSION: Emphysema and coarse lung markings. Question atelectasis at the left lung base. No definite evidence of pulmonary edema or pneumonia. ? Dictated By: Aminta Saeed MD Signed By: <Electronically signed by Aminta Saeed MD in [place]> 04/13/22 1026 Critical Care Time Critical Care Time Critical Care Time: Yes Total Critical Care Time: 60 Attestation: bipap, assesting pt ,speaking to EMS ,interpreting ABG Discharge Plan Discharge Clinical Impression: Respiratory failure Patient Disposition: Admitted As Inpatient
[2022-04-13 09:46] LABS: COVID-19 Test Negative (Negative)
[2022-04-13 09:48] LABS: Alanine Aminotransferase 18 U/L (0-31); Albumin Level 4.4 g/dL (3.5-5.0); Alkaline Phosphatase 70 U/L (39-117); Anion Gap 10 (12-20); Aspartate Amino Transferase 22 U/L (5-31); Bilirubin Total 0.3 mg/dL (0.0-1.0); Blood Urea Nitrogen 7 mg/dL (9-16); Carbon Dioxide 39 mmol/L (22-29); Chloride 100 mmol/L (96-108); Creatinine Clr Calc Pharmacy 62.1; Estimated Glomerular Filt Rate > 60; Glucose Random 111 mg/dL (60-115); Potassium 3.7 mmol/L (3.3-5.1); Sodium 145 mmol/L (135-145); Total Protein 7.3 g/dL (6.5-8.0)
[2022-04-13] MEDS: Albuterol Sulfate (0.083%) 2.5 MG/3 ML VIAL.NEB 5 MG INHALE (09:52)
[2022-04-13 09:53] LABS: B Type Natriuretic Peptide 91 pg/mL (<100); Troponin-I High Sensitivity 4.7 ng/L (<3.5-17.0)
[2022-04-13 10:57] LABS: Influenza A PCR NEGATIVE (Negative); Influenza B PCR NEGATIVE (Negative); Resp Syncy Virus RNA Qual PCR NEGATIVE (Negative); SARS COV2 PCR INHOUSE NEGATIVE (Negative)
[2022-04-13 10:58] LABS: Venous Blood Gas Refer to POC result
[2022-04-13 10:59] LABS: VBG Base Excess 29.3 mmol/L; VBG HCO3 63 mmol/L (22-26); VBG pCO2 122 mmHg; VBG pH 7.31 (7.32-7.43); VBG pO2 45 mmHg
[2022-04-13 11:36] LABS: ABG Base Excess 15.7 mmol/L; ABG HCO3 46 mmol/L (22-26); ABG pCO2 91 mmHg (32-45); ABG pH 7.31 (7.35-7.45); ABG pO2 60 mmHg (83-108)
[2022-04-13 11:39] LABS: ABG Refer to POC result
--- NOTE | 2022-04-13 11:48 | PHA.MEDREC ---
Pharmacy Consult ? Medication Reconciliation Pharmacy has completed the medication reconciliation. Recieved medication list from [place] [phone]. Grace Saavedra, JackelineD
--- NOTE | 2022-04-13 12:21 | P.HPCC_ITS ---
History of Present Illness Date of Service: 04/13/22 Attending physician on admission: Vignesh Meredith Chief Complaint: Lethargy/altered mental status 66-year-old with chronic severe COPD presents with acute on chronic hypercarbic and hypoxic respiratory failure with altered mental status but no fever chills or new productive cough PMFSH Past Medical History Medical History Acute and chronic respiratory failure with hypercapnia Acute metabolic encephalopathy Acute on chronic respiratory failure with hypoxia and hypercapnia Bipolar depression Bronchitis Bronchopneumonia Chest pain Chronic respiratory alkalosis Chronic respiratory failure CO2 retention COPD (chronic obstructive pulmonary disease) Eczema Fall ILD (interstitial lung disease) Insomnia Limb swelling Osteopenia (~2012) Tubular adenoma of colon (~2006) Vasomotor rhinitis Family History Family History Other Hypertension Surgical History Surgical History History of carpal tunnel surgery (~2000) History of cataract surgery (~2018) History of colonoscopy History of left inguinal hernia repair (~1995) History of tracheostomy (~2016) History of ventral hernia repair (~2003) Social History Social History Household Members: None Housing: Assisted Living Facility Housing Other:: person comes to do housework. Do you presently have visiting nurse or other home services: No Alcohol intake: unknown Patient Tobacco Use Status: Former Tobacco user Quit Date: 2018 Tobacco use type: Cigarette Years Smoked: 20+ years e-Cigarette/Vaping Use: Never Used Second Hand Smoke Exposure: No Advance Directives: Yes Advance Directives on File: Yes Advance Directives Date on File: 11/30/21 service: No Current occupational status: disabled Meds Allergies Allergy/AdvReac Type Severity Reaction Status Date / Time codeine [Codeine] Allergy Intermediate RESTLESS/RA Verified 03/24/22 11:02 SH haloperidol [Haldol] Allergy Intermediate Palpitation Verified 03/24/22 11:02 s Sulfa (Sulfonamide Allergy Intermediate HIVES Verified 03/24/22 11:02 Antibiotics) Active Medications: Current Medications Lamotrigine (Lamotrigine 100 Mg Tablet) 300 mg PO BEDTIME ALYSSA Lamotrigine (Lamotrigine 100 Mg Tablet) 200 mg PO DAILY [facility] Home Medications Medication Instructions Recorded Confirmed Last Taken Type acetaminophen 500 mg tablet 1,000 mg PO TID PRN 02/09/21 04/13/22 Unknown History albuterol sulfate 90 mcg/actuation 2 puff INHALATION QID PRN 02/09/21 04/13/22 Unknown History aerosol inhaler (Proventil HFA) alendronate 70 mg tablet (Fosamax) 70 mg PO SA 02/09/21 04/13/22 02/27/22 History aripiprazole 10 mg tablet (Abilify) 10 mg PO DAILY 02/09/21 04/13/22 03/01/22 History aspirin 81 mg tablet,delayed 81 mg PO DAILY 02/09/21 04/13/22 03/01/22 History release cholecalciferol (vitamin D3) 50 50 mcg PO DAILY 02/09/21 04/13/22 03/01/22 History mcg (2,000 unit) capsule (Vitamin D3) fluticasone furoate 200 1 inh INHALATION DAILY 02/09/21 04/13/22 03/01/22 History mcg-vilanterol 25 mcg/dose inhalation powder (Breo Ellipta) lamotrigine 150 mg tablet 300 mg PO BEDTIME 02/09/21 04/13/22 02/28/22 History lamotrigine 200 mg tablet 200 mg PO DAILY 02/09/21 04/13/22 03/01/22 History magnesium oxide 400 mg PO BID 02/09/21 04/13/22 03/01/22 History montelukast 10 mg tablet 10 mg PO BEDTIME 02/09/21 04/13/22 02/28/22 History multivitamin 1 tab PO DAILY 02/09/21 04/13/22 03/01/22 History tiotropium bromide 18 mcg capsule 1 cap INHALATION DAILY 02/09/21 04/13/22 03/01/22 History with inhalation device (Spiriva with HandiHaler) vilazodone 20 mg tablet (Viibryd) 20 mg PO DAILY 02/09/21 04/13/22 03/01/22 History mirtazapine 15 mg tablet 15 mg PO BEDTIME 09/10/21 04/13/22 02/28/22 History sennosides 8.6 mg tablet (Senokot) 8.6 mg PO BEDTIME 09/10/21 04/13/22 02/28/22 History metoprolol succinate 50 mg 50 mg PO DAILY 11/18/21 04/13/22 03/01/22 History tablet,extended release 24 hr prednisone 10 mg tablet 10 mg PO DAILY 04/13/22 04/13/22 Unknown History Physical Exam Vital Signs: Vital Signs: Last Vital Signs Pulse 87 04/13/22 11:56 Resp 16 04/13/22 11:56 BP 144/61 H 04/13/22 11:56 Pulse Ox 90 L 04/13/22 11:56 Oxygen Flow Rate 3 04/13/22 08:52 BMI result Body Mass Index 29.2 Results Labs CBC and Chem 7: 04/13/22 09:19 04/13/22 09:18 Labs: Laboratory Results - last 24 hr 04/13/22 04/13/22 04/13/22 09:18 09:18 09:18 MCV MCH MCHC RDW Plt Count MPV Immature Gran % (Auto) Neut % (Auto) Lymph % (Auto) [place] % (Auto) Eos % (Auto) Baso % (Auto) Lymph # (Auto) [place] # (Auto) Eos # (Auto) Baso # (Auto) Abs Immat Gran (auto) Absolute Neuts (auto) Absolute Nucleated RBC Nucleated RBC % (auto) PT 10.5 INR 0.9 O2 Saturation ABG pH at Pt Temp ABG pCO2 at Pt Temp ABG pO2 at Pt Temp ABG HCO3 ABG Base Excess (Actual) VBG pH VBG pCO2 VBG pO2 VBG HCO3 VBG O2 Saturation VBG Base Excess Anion Gap 10 L Estim Creat Clear Calc 62.1 Estimated GFR > 60 Random Glucose 111 Calcium 9.0 Total Bilirubin 0.3 AST 22 ALT 18 Alkaline Phosphatase 70 Troponin I High Sens 4.7 D B-Natriuretic Peptide 91 Total Protein 7.3 Albumin 4.4 COVID-19 (EDU) COVID-19 Clin Com Influenza Type A (PCR) Influenza Type B (PCR) RSV RNA Qual (PCR) SARS-CoV-2 RNA (RT-PCR) 04/13/22 04/13/22 04/13/22 09:18 09:19 10:14 MCV 100.0 H MCH 29.4 MCHC 29.4 L RDW 14.7 Plt Count 346 D MPV 9.0 L Immature Gran % (Auto) 0.4 Neut % (Auto) 70.3 Lymph % (Auto) 16.6 L [place] % (Auto) 9.0 Eos % (Auto) 2.8 Baso % (Auto) 0.9 Lymph # (Auto) 0.9 L [place] # (Auto) 0.5 Eos # (Auto) 0.2 Baso # (Auto) 0.1 Abs Immat Gran (auto) 0.02 Absolute Neuts (auto) 3.8 Absolute Nucleated RBC 0.000 Nucleated RBC % (auto) 0.0 PT INR O2 Saturation ABG pH at Pt Temp ABG pCO2 at Pt Temp ABG pO2 at Pt Temp ABG HCO3 ABG Base Excess (Actual) VBG pH VBG pCO2 VBG pO2 VBG HCO3 VBG O2 Saturation VBG Base Excess Anion Gap Estim Creat Clear Calc Estimated GFR Random Glucose Calcium Total Bilirubin AST ALT Alkaline Phosphatase Troponin I High Sens B-Natriuretic Peptide Total Protein Albumin COVID-19 (EDU) Negative COVID-19 Clin Com See Note Influenza Type A (PCR) NEGATIVE Influenza Type B (PCR) NEGATIVE RSV RNA Qual (PCR) NEGATIVE SARS-CoV-2 RNA (RT-PCR) NEGATIVE 04/13/22 04/13/22 10:49 11:26 MCV MCH MCHC RDW Plt Count MPV Immature Gran % (Auto) Neut % (Auto) Lymph % (Auto) [place] % (Auto) Eos % (Auto) Baso % (Auto) Lymph # (Auto) [place] # (Auto) Eos # (Auto) Baso # (Auto) Abs Immat Gran (auto) Absolute Neuts (auto) Absolute Nucleated RBC Nucleated RBC % (auto) PT INR O2 Saturation 90.0 ABG pH at Pt Temp 7.31 L ABG pCO2 at Pt Temp 91 H* ABG pO2 at Pt Temp 60 L ABG HCO3 46 H ABG Base Excess (Actual) 15.7 VBG pH 7.31 L VBG pCO2 122 VBG pO2 45 VBG HCO3 63 H VBG O2 Saturation 75.0 VBG Base Excess 29.3 Anion Gap Estim Creat Clear Calc Estimated GFR Random Glucose Calcium Total Bilirubin AST ALT Alkaline Phosphatase Troponin I High Sens B-Natriuretic Peptide Total Protein Albumin COVID-19 (EDU) COVID-19 Clin Com Influenza Type A (PCR) Influenza Type B (PCR) RSV RNA Qual (PCR) SARS-CoV-2 RNA (RT-PCR) Imaging Radiologist's Impressions: Impressions Chest X-Ray 04/13/22 09:11 IMPRESSION: Emphysema and coarse lung markings. Question atelectasis at the left lung base. No definite evidence of pulmonary edema or pneumonia.
[2022-04-13] MEDS: Heparin Sodium,Porcine 5,000 UNIT/ML VIAL 5000 UNIT SUBCUT ×2 (14:15→20:45)
[2022-04-13] MEDS: Albuterol/Iprat 2.5/0.5MG 3 ML AMPUL.NEB INHALE ×2 (15:44→20:05)
[2022-04-13 16:01] LABS: ABG HCO3 48 mmol/L (22-26); ABG pCO2 88 mmHg (32-45); ABG pH 7.34 (7.35-7.45); ABG pO2 85 mmHg (83-108)
[2022-04-13] MEDS: Doxycycline Hyclate 100 MG in 0.9 % Sodium Chloride 250 ML 166.67 MG IV (16:55)
[2022-04-13] MEDS: methylPREDNISolone Sod Succ 125 MG/2 ML VIAL 60 MG IVPUSH (16:55)
[2022-04-13 17:51] LABS: Amphetamine Screen Urine Not Detected (Not Detect); Barbiturates, Urine Not Detected (Not Detect); Benzodiazepines Screen Urine Not Detected (Not Detect); Cannabinoid Screen Urine Not Detected (Not Detect); Cocaine Screen Urine Not Detected (Not Detect); Fentanyl, urine Not Detected (Not Detect); Opiate Screen Urine Not Detected (Not Detect); Phencyclidine Screen Urine Not Detected (Not Detect)
[2022-04-13 20:06] LABS: ABG Refer to POC result
[2022-04-13] MEDS: lamoTRIgine 100 MG TABLET 300 MG PO (20:52)
[2022-04-13 21:28] LABS: VBG Base Excess 21.5 mmol/L; VBG HCO3 51 mmol/L (22-26); VBG pCO2 88 mmHg; VBG pH 7.37 (7.32-7.43); VBG pO2 54 mmHg
[2022-04-13 21:47] LABS: Venous Blood Gas Refer to POC result
--- NOTE | 2022-04-13 23:06 | PC.NURSE ---
ASSUMED CARE OF PT AT 1900. PT ON BIPAP FACEMASK AND TOLERATION WELL. PT IS A&O X3 AND FOLLOWS COMMANDS. VBG'S DONE AT 1600 IMPROVED AND REPEATED AT 2118 AND STILL IMPROVED. PT TO BE TRANSFERRED TO [facility]. PT IS AWARE OF PLAN OF CARE.
[2022-04-14] VITALS (12 sets, daily range): BP systolic 115–165; BP diastolic 47–83; PULSE 64–101; RESP 14–20; TEMP 36.4–37.3; O2SAT 90–97; BMI 31.3
--- NOTE | 2022-04-14 00:43 | PC.NURSE ---
report called to Jennifer RYAN. Pt transferred to [facility] [place].
[2022-04-14] MEDS: methylPREDNISolone Sod Succ 125 MG/2 ML VIAL 60 MG IVPUSH ×2 (03:10→15:55)
[2022-04-14] MEDS: Doxycycline Hyclate 100 MG in 0.9 % Sodium Chloride 250 ML 166.67 MG IV ×2 (03:10→15:58)
[2022-04-14] MEDS: Heparin Sodium,Porcine 5,000 UNIT/ML VIAL 5000 UNIT SUBCUT ×3 (04:50→23:56)
[2022-04-14] MEDS: Omeprazole 40 MG CAPSULE.DR PO (04:50)
--- NOTE | 2022-04-14 07:46 | HO.PM.IMPN ---
Subjective Subjective Date of Service: 04/14/22 Interval History: Acute hypoxemic respiratory failure secondary to COPD. Review of Systems Shortness of breath seems improving, dry cough Denies any chest pain or nausea or vomiting or fever or chills. She says that she sleeps without her CPAP-that might have contributed to her presentation. Physical Exam Vital Signs: Vital Signs: Last Vital Signs Temp 97.5 F 04/14/22 03:35 Pulse 69 04/14/22 03:35 Resp 18 04/14/22 03:35 BP 154/72 H 04/14/22 03:35 Pulse Ox 97 04/14/22 03:35 Oxygen Flow Rate 3 04/13/22 08:52 BMI result Body Mass Index 31.3 Appearance: Alert.? Oriented X3.?still sob cvs: rrr, [id number] res: air entry diminshed , no rales or wheezing abd: no rebound or guarding ,nt, bs present. ext pulses present , no cyanosis ,Gait well balanced well coordinated. neuro: axo3 , nonfocal. Objective Data Active Medications Albuterol/Ipratropium (Albuterol/Iprat 2.5/0.5mg 3 Ml Ampul.Neb) 3 ml INHALE RQ4H WHILE AWAKE [facility] Last Admin: 04/14/22 07:45 Dose: Not Given Documented by: DOUG Non-Admin Reason: pt unavail Aripiprazole (Aripiprazole 10 Mg Tablet) 10 mg PO DAILY [facility] Aspirin (Aspirin Enteric Coated 81 Mg Tablet.Dr) 81 mg PO DAILY [facility] Docusate Sodium (Docusate Sodium 100 Mg Capsule) 100 mg PO DAILY PRN PRN Reason: Constipation Fluticasone/Vilanterol (Fluticasone/Vilanterol 200/25 Blst.W.Dev) 1 puff INHALE DAILY [facility] Heparin Sodium (Porcine) (Heparin Sodium,Porcine 5,000 Unit/Ml Vial) 5,000 unit SUBCUT Q8H [facility] Last Admin: 04/14/22 04:50 Dose: 5,000 unit Documented by: TRISH Doxycycline Hyclate 100 mg/ (Sodium Chloride) 250 mls @ 166.67 mls/hr IV Q12H [facility] Last Infusion: 04/14/22 04:53 Dose: 0 mls/hr Documented by: TRISH Ipratropium [place] (Ipratropium [place] Regan 0.06 % 15 Ml [place]) 2 spray NOSTRIL-B TID [facility] Lamotrigine (Lamotrigine 100 Mg Tablet) 300 mg PO BEDTIME [facility] Last Admin: 04/13/22 20:52 Dose: 300 mg Documented by: MATT Lamotrigine (Lamotrigine 100 Mg Tablet) 200 mg PO DAILY [facility] Magnesium Oxide (Magnesium Oxide 400 Mg Tablet) 400 mg PO BID [facility] Methylprednisolone Sodium Succinate (Methylprednisolone Sod Succ 125 Mg/2 Ml Vial) 60 mg IVPUSH Q12H [facility] Last Admin: 04/14/22 03:10 Dose: 60 mg Documented by: TRISH Metoprolol Succinate (Metoprolol Succinate Er 50 Mg Tab.Er.24h) 50 mg PO DAILY [facility]; Protocol Mirtazapine (Mirtazapine 15 Mg Tablet) 15 mg PO BEDTIME [facility] Montelukast Sodium (Montelukast Sodium 10 Mg Tablet) 10 mg PO BEDTIME [facility] Multivitamins/Vitamin C (Multivitamin Tablet) 1 tab PO DAILY [facility] Non-Formulary Medication (Acetaminophen) 1,000 mg PO TID PRN PRN Reason: Headache Non-Formulary Medication (Alendronate [Fosamax]) 70 mg PO SA [facility] Omeprazole (Omeprazole 40 Mg Capsule.Dr) 40 mg PO DAILY@0630 [facility] Last Admin: 04/14/22 04:50 Dose: 40 mg Documented by: TRISH Senna (Sennosides 8.6 Mg Tablet) 8.6 mg PO BEDTIME [facility] Theophylline (Theophylline Anhydrous Er 300 Mg Tab.Er.12h) 300 mg PO Q12H [facility] Vilazodone HCl (Vilazodone Hcl 20 Mg Tablet) 20 mg PO DAILY [facility] Vitamin D (Cholecalciferol (Vitamin D3) 25 Mcg Tablet) 50 mcg PO DAILY [facility] Labs CBC & Chem 7: 04/13/22 09:19 04/13/22 09:18 Labs: Laboratory Results - last 24 hr 04/13/22 04/13/22 04/13/22 09:18 09:18 09:18 MCV MCH MCHC RDW Plt Count MPV Immature Gran % (Auto) Neut % (Auto) Lymph % (Auto) [place] % (Auto) Eos % (Auto) Baso % (Auto) Lymph # (Auto) [place] # (Auto) Eos # (Auto) Baso # (Auto) Abs Immat Gran (auto) Absolute Neuts (auto) Absolute Nucleated RBC Nucleated RBC % (auto) PT 10.5 INR 0.9 O2 Saturation ABG pH at Pt Temp ABG pCO2 at Pt Temp ABG pO2 at Pt Temp ABG HCO3 ABG Base Excess (Actual) VBG pH VBG pCO2 VBG pO2 VBG HCO3 VBG O2 Saturation VBG Base Excess Anion Gap 10 L Estim Creat Clear Calc 62.1 Estimated GFR > 60 Random Glucose 111 Calcium 9.0 Total Bilirubin 0.3 AST 22 ALT 18 Alkaline Phosphatase 70 Troponin I High Sens 4.7 D B-Natriuretic Peptide 91 Total Protein 7.3 Albumin 4.4 Urine Opiates Screen Urine Fentanyl Screen Ur Barbiturates Screen Ur Phencyclidine Scrn Ur Amphetamines Screen U Benzodiazepines Scrn Urine Cocaine Screen U Marijuana (THC) Screen COVID-19 (EDU) COVID-19 Clin Com Influenza Type A (PCR) Influenza Type B (PCR) RSV RNA Qual (PCR) SARS-CoV-2 RNA (RT-PCR) 04/13/22 04/13/22 04/13/22 09:18 09:19 10:14 MCV 100.0 H MCH 29.4 MCHC 29.4 L RDW 14.7 Plt Count 346 D MPV 9.0 L Immature Gran % (Auto) 0.4 Neut % (Auto) 70.3 Lymph % (Auto) 16.6 L [place] % (Auto) 9.0 Eos % (Auto) 2.8 Baso % (Auto) 0.9 Lymph # (Auto) 0.9 L [place] # (Auto) 0.5 Eos # (Auto) 0.2 Baso # (Auto) 0.1 Abs Immat Gran (auto) 0.02 Absolute Neuts (auto) 3.8 Absolute Nucleated RBC 0.000 Nucleated RBC % (auto) 0.0 PT INR O2 Saturation ABG pH at Pt Temp ABG pCO2 at Pt Temp ABG pO2 at Pt Temp ABG HCO3 ABG Base Excess (Actual) VBG pH VBG pCO2 VBG pO2 VBG HCO3 VBG O2 Saturation VBG Base Excess Anion Gap Estim Creat Clear Calc Estimated GFR Random Glucose Calcium Total Bilirubin AST ALT Alkaline Phosphatase Troponin I High Sens B-Natriuretic Peptide Total Protein Albumin Urine Opiates Screen Urine Fentanyl Screen Ur Barbiturates Screen Ur Phencyclidine Scrn Ur Amphetamines Screen U Benzodiazepines Scrn Urine Cocaine Screen U Marijuana (THC) Screen COVID-19 (EDU) Negative COVID-19 Clin Com See Note Influenza Type A (PCR) NEGATIVE Influenza Type B (PCR) NEGATIVE RSV RNA Qual (PCR) NEGATIVE SARS-CoV-2 RNA (RT-PCR) NEGATIVE 04/13/22 04/13/22 04/13/22 10:49 11:26 15:53 MCV MCH MCHC RDW Plt Count MPV Immature Gran % (Auto) Neut % (Auto) Lymph % (Auto) [place] % (Auto) Eos % (Auto) Baso % (Auto) Lymph # (Auto) [place] # (Auto) Eos # (Auto) Baso # (Auto) Abs Immat Gran (auto) Absolute Neuts (auto) Absolute Nucleated RBC Nucleated RBC % (auto) PT INR O2 Saturation 90.0 97.0 ABG pH at Pt Temp 7.31 L 7.34 L ABG pCO2 at Pt Temp 91 H* 88 H* ABG pO2 at Pt Temp 60 L 85 ABG HCO3 46 H 48 H ABG Base Excess (Actual) 15.7 18.0 VBG pH 7.31 L VBG pCO2 122 VBG pO2 45 VBG HCO3 63 H VBG O2 Saturation 75.0 VBG Base Excess 29.3 Anion Gap Estim Creat Clear Calc Estimated GFR Random Glucose Calcium Total Bilirubin AST ALT Alkaline Phosphatase Troponin I High Sens B-Natriuretic Peptide Total Protein Albumin Urine Opiates Screen Urine Fentanyl Screen Ur Barbiturates Screen Ur Phencyclidine Scrn Ur Amphetamines Screen U Benzodiazepines Scrn Urine Cocaine Screen U Marijuana (THC) Screen COVID-19 (EDU) COVID-19 Clin Com Influenza Type A (PCR) Influenza Type B (PCR) RSV RNA Qual (PCR) SARS-CoV-2 RNA (RT-PCR) 04/13/22 04/13/22 17:17 21:19 MCV MCH MCHC RDW Plt Count MPV Immature Gran % (Auto) Neut % (Auto) Lymph % (Auto) [place] % (Auto) Eos % (Auto) Baso % (Auto) Lymph # (Auto) [place] # (Auto) Eos # (Auto) Baso # (Auto) Abs Immat Gran (auto) Absolute Neuts (auto) Absolute Nucleated RBC Nucleated RBC % (auto) PT INR O2 Saturation ABG pH at Pt Temp ABG pCO2 at Pt Temp ABG pO2 at Pt Temp ABG HCO3 ABG Base Excess (Actual) VBG pH 7.37 VBG pCO2 88 VBG pO2 54 VBG HCO3 51 H VBG O2 Saturation 86.0 VBG Base Excess 21.5 Anion Gap Estim Creat Clear Calc Estimated GFR Random Glucose Calcium Total Bilirubin AST ALT Alkaline Phosphatase Troponin I High Sens B-Natriuretic Peptide Total Protein Albumin Urine Opiates Screen Not Detected Urine Fentanyl Screen Not Detected Ur Barbiturates Screen Not Detected Ur Phencyclidine Scrn Not Detected Ur Amphetamines Screen Not Detected U Benzodiazepines Scrn Not Detected Urine Cocaine Screen Not Detected U Marijuana (THC) Screen Not Detected COVID-19 (EDU) COVID-19 Clin Com Influenza Type A (PCR) Influenza Type B (PCR) RSV RNA Qual (PCR) SARS-CoV-2 RNA (RT-PCR) Assessment and Plan (1) Respiratory failure: Status: Acute (2) COPD exacerbation: Status: Acute Plan 66-year-old female with history of COPD presents to the hospital with hypercapnia with altered mental status. acute on chronic respiratory failure with hypercapnia -? patient found to have hypercapnia and was in icu -? on BiPAP, will continue at this time Transferred to floor from ICU overnight. Continue nebs, steroids, COPD exacerbation -? reports increased cough and sputum production as well as dyspnea continue ? Solu-Medrol,? DuoNeb,doxycyline ,oxygen -? monitor respiratory status Toxic metabolic encephalopathy due to acute hypercarbic respiratory failure secondary to COPD exacerbation. Improving near her baseline. Obesity: Encouraged for card on calories and weight loss. ?DVT prophylaxis:? Lovenox. Need for inpatient:acute on chronic respiratory failure with hypercapnia Quality Stroke Does the patient have a stroke diagnosis?: No VTE Prior VTE?: No VTE Risk Level:: Medical - moderate - high VTE Device Contraindication: N/A - Device Ordered VTE Drug Contraindication: N/A - Med Ordered
[2022-04-14 08:20] LABS: ABG Base Excess 15.8 mmol/L; ABG HCO3 47 mmol/L (22-26); ABG pCO2 99 mmHg (32-45); ABG pH 7.28 (7.35-7.45); ABG pO2 85 mmHg (83-108)
[2022-04-14] MEDS: Magnesium Oxide 400 MG TABLET PO ×2 (09:13→23:55)
[2022-04-14] MEDS: lamoTRIgine 100 MG TABLET 200 MG PO (09:13)
[2022-04-14] MEDS: Vilazodone HCL 20 MG TABLET PO (09:13)
[2022-04-14] MEDS: Metoprolol Succinate ER 50 MG TAB.ER.24H PO (09:13)
[2022-04-14] MEDS: Cholecalciferol (Vitamin D3) 25 MCG TABLET 50 MCG PO (09:13)
[2022-04-14] MEDS: Aspirin Enteric Coated 81 MG TABLET.DR PO (09:13)
[2022-04-14] MEDS: ARIPiprazole 10 MG TABLET PO (09:13)
[2022-04-14] MEDS: Multivitamin TABLET 1 TAB PO (09:13)
[2022-04-14] MEDS: Theophylline Anhydrous ER 300 MG TAB.ER.12H PO ×2 (09:13→23:55)
--- NOTE | 2022-04-14 09:41 | P.CONPL_ITS ---
History of Present Illness History of Present Illness Consult date: 04/14/22 Chief complaint: Acute hypercarbic/hypoxic respiratory failure Narrative: This is an inpatient pulmonary consultation. The patient is a 66-year-old woman with a known history of COPD with respiratory failure, previously required invasive ventilation with tracheostomy now decannulated. She is on a noninvasive ventilator. The [facility] noninvasive ventilator has been further adjusted to increase her minute ventilation and the last ABG was reassuring. However, the patient does not always put on the noninvasive ventilator at nighttime while sleeping. Sometimes she falls asleep in realizes she does not have it on. Sometimes she starts getting confusing she just forgets to put it on. After a few days she started getting more confuse and ultimately felt unsteady in her feet. Therefore she had a near fall. She was brought to the [facility] ED for further evaluation. She was noted to have acute on chronic hypercarbic respiratory failure. She was admitted briefly to the ICU. she was placed again on BiPAP improving her mental status and her acidosis with than 12 hours. Now she is back to her baseline feeling comfortable. She is concerned about her safety by herself. Specially, when she falls asleep in forgets to put on her ventilator. Review of Systems Constitutional: Constitutional: Denies fatigue and Denies weakness Eyes: Eyes: Denies change in vision ENT: Denies sore throat Cardiovascular: Cardiovascular: Denies chest pain and Reports dyspnea Respiratory: Respiratory: Denies chest congestion, Reports cough, Denies pain on inspiration, Denies pain with cough and Reports dyspnea Gastrointestinal: Gastrointestinal: Denies abdominal pain Musculoskeletal: Musculoskeletal: Reports abnormal gait and Reports muscle weakness Neurologic: Reports abnormal gait, Reports memory loss and Denies weakness Psychiatric: Psychiatric: Reports depression and Reports memory loss Endocrine: Endocrine: Denies fatigue [facility] Past Medical History Medical History Acute and chronic respiratory failure with hypercapnia Acute metabolic encephalopathy Acute on chronic respiratory failure with hypoxia and hypercapnia Bipolar depression Bronchitis Bronchopneumonia Chest pain Chronic respiratory alkalosis Chronic respiratory failure CO2 retention COPD (chronic obstructive pulmonary disease) Eczema Fall ILD (interstitial lung disease) Insomnia Limb swelling Osteopenia (~2012) Tubular adenoma of colon (~2006) Vasomotor rhinitis Family History Family History Other Hypertension Surgical History Surgical History History of carpal tunnel surgery (~2000) History of cataract surgery (~2018) History of colonoscopy History of left inguinal hernia repair (~1995) History of tracheostomy (~2016) History of ventral hernia repair (~2003) Social History Social History (Updated 04/13/22 @ 14:44 by Ramana Girard RN) Household Members: None Housing: Apartment Housing Other:: person comes to do housework. Are you a primary home care chaplain to a significant other at home: No Do you presently have visiting nurse or other home services: Yes Alcohol intake: unknown Patient Tobacco Use Status: Former Tobacco user Quit Date: 2018 Tobacco use type: Cigarette Years Smoked: 20+ years Smoked in Last 30 Days: No e-Cigarette/Vaping Use: Never Used Second Hand Smoke Exposure: No Use of substances other than those prescribed or required for medical reasons: No Currently Displaying Signs/Symptoms of Drug Intoxication Withdrawal: No Have you been hit, kicked, punched, or otherwise hurt by someone within the past year? If so, by whom?: No Do you feel safe in your current relationship?: Yes Is there a partner from a previous relationship who is making you feel unsafe now?: No Are you made to feel afraid or neglected: No Advance Directives: Yes Advance Directives on File: Yes Advance Directives Date on File: 11/30/21 Do you have thoughts of harming others: None Do you have a plan to hurt others: No Plan Recently lost weight without trying: No Eating poorly because of decreased appetite: No Nutrition Risks: No Nutritional Risk service: No Current occupational status: disabled Meds Allergies Allergy/AdvReac Type Severity Reaction Status Date / Time codeine [Codeine] Allergy Intermediate RESTLESS/RA Verified 03/24/22 11:02 SH haloperidol [Haldol] Allergy Intermediate Palpitation Verified 03/24/22 11:02 s Sulfa (Sulfonamide Allergy Intermediate HIVES Verified 03/24/22 11:02 Antibiotics) Active Medications: Current Medications Acetaminophen (Acetaminophen 325 Mg Tablet) 975 mg PO TID PRN PRN Reason: Headache Albuterol/Ipratropium (Albuterol/Iprat 2.5/0.5mg 3 Ml Ampul.Neb) 3 ml INHALE RQ4H WHILE AWAKE [facility] Last Admin: 04/14/22 07:45 Dose: Not Given Documented by: Aripiprazole (Aripiprazole 10 Mg Tablet) 10 mg PO DAILY [facility] Last Admin: 04/14/22 09:13 Dose: 10 mg Documented by: Aspirin (Aspirin Enteric Coated 81 Mg Tablet.) 81 mg PO DAILY [facility] Last Admin: 04/14/22 09:13 Dose: 81 mg Documented by: Docusate Sodium (Docusate Sodium 100 Mg Capsule) 100 mg PO DAILY PRN PRN Reason: Constipation Fluticasone/Vilanterol (Fluticasone/Vilanterol 200/25 Blst.W.Dev) 1 puff INHALE RDAILY [facility] Heparin Sodium (Porcine) (Heparin Sodium,Porcine 5,000 Unit/Ml Vial) 5,000 unit SUBCUT Q8H [facility] Last Admin: 04/14/22 04:50 Dose: 5,000 unit Documented by: Doxycycline Hyclate 100 mg/ (Sodium Chloride) 250 mls @ 166.67 mls/hr IV Q12H [facility] Last Infusion: 04/14/22 04:53 Dose: Infused Documented by: Ipratropium [place] (Ipratropium [place] Regan 0.06 % 15 Ml [place]) 2 spray NOSTRIL-B TID [facility] Lamotrigine (Lamotrigine 100 Mg Tablet) 300 mg PO BEDTIME [facility] Last Admin: 04/13/22 20:52 Dose: 300 mg Documented by: Lamotrigine (Lamotrigine 100 Mg Tablet) 200 mg PO DAILY [facility] Last Admin: 04/14/22 09:13 Dose: 200 mg Documented by: Magnesium Oxide (Magnesium Oxide 400 Mg Tablet) 400 mg PO BID [facility] Last Admin: 04/14/22 09:13 Dose: 400 mg Documented by: Methylprednisolone Sodium Succinate (Methylprednisolone Sod Succ 125 Mg/2 Ml Vial) 60 mg IVPUSH Q12H [facility] Last Admin: 04/14/22 03:10 Dose: 60 mg Documented by: Metoprolol Succinate (Metoprolol Succinate Er 50 Mg Tab.Er.24h) 50 mg PO DAILY [facility]; Protocol Last Admin: 04/14/22 09:13 Dose: 50 mg Documented by: Mirtazapine (Mirtazapine 15 Mg Tablet) 15 mg PO BEDTIME [facility] Last Admin: 04/14/22 09:08 Dose: Not Given Documented by: Montelukast Sodium (Montelukast Sodium 10 Mg Tablet) 10 mg PO BEDTIME [facility] Last Admin: 04/14/22 09:08 Dose: Not Given Documented by: Multivitamins/Vitamin C (Multivitamin Tablet) 1 tab PO DAILY [facility] Last Admin: 04/14/22 09:13 Dose: 1 tab Documented by: Omeprazole (Omeprazole 40 Mg Capsule.Dr) 40 mg PO DAILY@0630 [facility] Last Admin: 04/14/22 04:50 Dose: 40 mg Documented by: Senna (Sennosides 8.6 Mg Tablet) 8.6 mg PO BEDTIME [facility] Theophylline (Theophylline Anhydrous Er 300 Mg Tab.Er.12h) 300 mg PO Q12H [facility] Last Admin: 04/14/22 09:13 Dose: 300 mg Documented by: Vilazodone HCl (Vilazodone Hcl 20 Mg Tablet) 20 mg PO DAILY [facility] Last Admin: 04/14/22 09:13 Dose: 20 mg Documented by: Vitamin D (Cholecalciferol (Vitamin D3) 25 Mcg Tablet) 50 mcg PO DAILY [facility] Last Admin: 04/14/22 09:13 Dose: 50 mcg Documented by: Home Medications Medication Instructions Recorded Confirmed Last Taken Type acetaminophen 500 mg tablet 1,000 mg PO TID PRN 02/09/21 04/13/22 Unknown History albuterol sulfate 90 mcg/actuation 2 puff INHALATION QID PRN 02/09/21 04/13/22 Unknown History aerosol inhaler (Proventil HFA) alendronate 70 mg tablet (Fosamax) 70 mg PO SA 02/09/21 04/13/22 02/27/22 History aripiprazole 10 mg tablet (Abilify) 10 mg PO DAILY 02/09/21 04/13/22 03/01/22 History aspirin 81 mg tablet,delayed 81 mg PO DAILY 02/09/21 04/13/22 03/01/22 History release cholecalciferol (vitamin D3) 50 50 mcg PO DAILY 02/09/21 04/13/22 03/01/22 History mcg (2,000 unit) capsule (Vitamin D3) fluticasone furoate 200 1 inh INHALATION DAILY 02/09/21 04/13/22 03/01/22 History mcg-vilanterol 25 mcg/dose inhalation powder (Breo Ellipta) lamotrigine 150 mg tablet 300 mg PO BEDTIME 02/09/21 04/13/22 02/28/22 History lamotrigine 200 mg tablet 200 mg PO DAILY 02/09/21 04/13/22 03/01/22 History magnesium oxide 400 mg PO BID 02/09/21 04/13/22 03/01/22 History montelukast 10 mg tablet 10 mg PO BEDTIME 02/09/21 04/13/22 02/28/22 History multivitamin 1 tab PO DAILY 02/09/21 04/13/22 03/01/22 History tiotropium bromide 18 mcg capsule 1 cap INHALATION DAILY 02/09/21 04/13/22 03/01/22 History with inhalation device (Spiriva with HandiHaler) vilazodone 20 mg tablet (Viibryd) 20 mg PO DAILY 02/09/21 04/13/22 03/01/22 History mirtazapine 15 mg tablet 15 mg PO BEDTIME 09/10/21 04/13/22 02/28/22 History sennosides 8.6 mg tablet (Senokot) 8.6 mg PO BEDTIME 09/10/21 04/13/22 02/28/22 History metoprolol succinate 50 mg 50 mg PO DAILY 11/18/21 04/13/22 03/01/22 History tablet,extended release 24 hr prednisone 10 mg tablet 10 mg PO DAILY 04/13/22 04/13/22 Unknown History Physical Exam Vital Signs: Vital Signs: Last Vital Signs Temp 99.1 F 04/14/22 08:00 Pulse 75 04/14/22 08:00 Resp 20 04/14/22 08:00 BP 157/66 H 04/14/22 08:00 Pulse Ox 94 04/14/22 08:00 Oxygen Flow Rate 3 04/13/22 08:52 BMI result Body Mass Index 31.3 Const: General: alert Neck: Neck: Yes normal visual inspection, Yes full ROM and Yes no lymphadenopathy Chest: Chest palpation & inspection: normal inspection of the chest Resp: Auscultation: diminished lung sounds Cardio: Rate: regular rate Rhythm: regular rhythm Heart sounds: S1 normal heart sound present and S2 normal heart sound present GI: Palpation (GI): Soft to palpation and nontender Auscultation: normal bowel sounds Skin: General skin exam: rashes and/or lesions noted Results Laboratory Findings CBC and BMP: 04/13/22 09:19 04/13/22 09:18 ABG, PT/INR, D-dimer: PT/INR, D-dimer PT 10.5 SEC (9.9-13.0) 04/13/22 09:18 INR 0.9 (0.9-1.1) 04/13/22 09:18 Abnormal lab findings: Abnormal Labs 04/13/22 04/13/22 04/13/22 09:00 09:18 09:19 RBC 4.15 L MCV 100.0 H MCHC 29.4 L MPV 9.0 L Lymph % (Auto) 16.6 L Lymph # (Auto) 0.9 L ABG pH at Pt Temp 7.28 L ABG pCO2 at Pt Temp 99 H* ABG pO2 at Pt Temp ABG HCO3 47 H VBG pH VBG HCO3 Carbon Dioxide 39 H Anion Gap 10 L BUN 7 L D 04/13/22 04/13/22 04/13/22 10:49 11:26 15:53 RBC MCV MCHC MPV Lymph % (Auto) Lymph # (Auto) ABG pH at Pt Temp 7.31 L 7.34 L ABG pCO2 at Pt Temp 91 H* 88 H* ABG pO2 at Pt Temp 60 L ABG HCO3 46 H 48 H VBG pH 7.31 L VBG HCO3 63 H Carbon Dioxide Anion Gap BUN 04/13/22 21:19 RBC MCV MCHC MPV Lymph % (Auto) Lymph # (Auto) ABG pH at Pt Temp ABG pCO2 at Pt Temp ABG pO2 at Pt Temp ABG HCO3 VBG pH VBG HCO3 51 H Carbon Dioxide Anion Gap BUN Assessment and Plan (1) Acute and chronic respiratory failure with hypercapnia: Status: Acute (2) COPD (chronic obstructive pulmonary disease): Status: Acute (3) Altered mental status: Status: Acute Plan Continue current respiratory therapy Oxygen supplementation to maintain a pulse ox 88% to 95% Needs to use AVAPS while sleeping at night and also during the daytime at least 2 hours Disposition: The patient will talk to Case Management. Currently she needs to be evaluated by physical therapy specially with her falls for home safety eval. She may need rehabilitation. Procedures Date of Service Date of Service: 04/14/22
--- NOTE | 2022-04-14 11:09 | MHC.CM.PN ---
Addendum entered by Marya Goncalves 04/14/22 11:17: Vaccinated Pfizer x 3 Moderna x1 Original Note: IMM 04/14/22 Female DX Respiratory failure. She lives by herself. She uses a walker+WC. She is on 3L oxygen at home. The provider is [facility]. She a lso has a triligy is provided by [facility]. She is in the [facility]. She was transferred from ICU this am. Per MD rounds dc 1-2 days. DP home resume pace program and transport.
[2022-04-14] MEDS: Albuterol/Iprat 2.5/0.5MG 3 ML AMPUL.NEB INHALE ×3 (11:13→19:08)
[2022-04-14] MEDS: Ipratropium Bromide Nas 0.06 % 15 ML SPRAY 2 SPRAY NOSTRIL-B (15:54)
[2022-04-14] MEDS: lamoTRIgine 100 MG TABLET 300 MG PO (23:54)
[2022-04-14] MEDS: Sennosides 8.6 MG TABLET PO (23:54)
[2022-04-14] MEDS: Montelukast Sodium 10 MG TABLET PO (23:55)
[2022-04-14] MEDS: Mirtazapine 15 MG TABLET PO (23:55)
[2022-04-14] MEDS: Acetaminophen 325 MG TABLET 975 MG PO (23:58)
[2022-04-15] VITALS (11 sets, daily range): BP systolic 138–166; BP diastolic 52–85; PULSE 66–100; RESP 18–22; TEMP 35.9–36.9; O2SAT 91–98
[2022-04-15] MEDS: Ipratropium Bromide Nas 0.06 % 15 ML SPRAY 2 SPRAY NOSTRIL-B ×4 (00:02→20:53)
[2022-04-15] MEDS: Doxycycline Hyclate 100 MG in 0.9 % Sodium Chloride 250 ML 166 MG IV (04:40)
[2022-04-15] MEDS: methylPREDNISolone Sod Succ 125 MG/2 ML VIAL 60 MG IVPUSH (04:41)
[2022-04-15] MEDS: Omeprazole 40 MG CAPSULE.DR PO (05:18)
[2022-04-15] MEDS: Heparin Sodium,Porcine 5,000 UNIT/ML VIAL 5000 UNIT SUBCUT ×3 (05:19→20:53)
--- NOTE | 2022-04-15 09:01 | HO.PM.IMPN ---
Subjective Subjective Date of Service: 04/15/22 Interval History: copd , htn Review of Systems Short numbers seem to improve significantly, denies any chest pain or abdominal pain or nausea or vomiting or fever chills. Physical Exam Vital Signs: Vital Signs: Last Vital Signs Temp 96.7 F L 04/15/22 07:16 Pulse 70 04/15/22 07:16 Resp 20 04/15/22 07:16 BP 166/85 H 04/15/22 07:16 Pulse Ox 98 04/15/22 07:16 Oxygen Flow Rate 3 04/13/22 08:52 BMI result Body Mass Index 31.3 Appearance: Alert.? Oriented X3.?sob seems improved. cvs: rrr, [id number] res: fair air entry, no rales or wheezing abd: no rebound or guarding ,nt, bs present. ext pulses present , no cyanosis . neuro: axo3 , nonfocal Objective Data Active Medications Acetaminophen (Acetaminophen 325 Mg Tablet) 975 mg PO TID PRN PRN Reason: Headache Last Admin: 04/14/22 23:58 Dose: 975 mg Documented by: GULSHAN Albuterol/Ipratropium (Albuterol/Iprat 2.5/0.5mg 3 Ml Ampul.Neb) 3 ml INHALE RQ4H WHILE AWAKE [facility] Last Admin: 04/14/22 19:08 Dose: 3 ml Documented by: RENNY Aripiprazole (Aripiprazole 10 Mg Tablet) 10 mg PO DAILY [facility] Last Admin: 04/14/22 09:13 Dose: 10 mg Documented by: STEWART Aspirin (Aspirin Enteric Coated 81 Mg Tablet.) 81 mg PO DAILY [facility] Last Admin: 04/14/22 09:13 Dose: 81 mg Documented by: STEWART Docusate Sodium (Docusate Sodium 100 Mg Capsule) 100 mg PO DAILY PRN PRN Reason: Constipation Fluticasone/Vilanterol (Fluticasone/Vilanterol 200/25 Blst.W.Dev) 1 puff INHALE RDAILY [facility] Heparin Sodium (Porcine) (Heparin Sodium,Porcine 5,000 Unit/Ml Vial) 5,000 unit SUBCUT Q8H [facility] Last Admin: 04/15/22 05:19 Dose: 5,000 unit Documented by: XIMENA Doxycycline Hyclate 100 mg/ (Sodium Chloride) 250 mls @ 166.67 mls/hr IV Q12H [facility] Last Infusion: 04/15/22 06:32 Dose: 0 mls/hr Documented by: XIMENA Ipratropium [place] (Ipratropium [place] 0.06 % 15 Ml [place]) 2 spray NOSTRIL-B TID [facility] Last Admin: 04/15/22 00:02 Dose: 2 spray Documented by: GULSHAN Lamotrigine (Lamotrigine 100 Mg Tablet) 300 mg PO BEDTIME [facility] Last Admin: 04/14/22 23:54 Dose: 300 mg Documented by: GULSHAN Lamotrigine (Lamotrigine 100 Mg Tablet) 200 mg PO DAILY [facility] Last Admin: 04/14/22 09:13 Dose: 200 mg Documented by: STEWART Magnesium Oxide (Magnesium Oxide 400 Mg Tablet) 400 mg PO BID [facility] Last Admin: 04/14/22 23:55 Dose: 400 mg Documented by: GULSHAN Methylprednisolone Sodium Succinate (Methylprednisolone Sod Succ 125 Mg/2 Ml Vial) 60 mg IVPUSH Q12H [facility] Last Admin: 04/15/22 04:41 Dose: 60 mg Documented by: XIMENA Metoprolol Succinate (Metoprolol Succinate Er 50 Mg Tab.Er.24h) 50 mg PO DAILY [facility]; Protocol Last Admin: 04/14/22 09:13 Dose: 50 mg Documented by: STEWART Mirtazapine (Mirtazapine 15 Mg Tablet) 15 mg PO BEDTIME [facility] Last Admin: 04/14/22 23:55 Dose: 15 mg Documented by: GULSHAN Montelukast Sodium (Montelukast Sodium 10 Mg Tablet) 10 mg PO BEDTIME [facility] Last Admin: 04/14/22 23:55 Dose: 10 mg Documented by: GULSHAN Multivitamins/Vitamin C (Multivitamin Tablet) 1 tab PO DAILY [facility] Last Admin: 04/14/22 09:13 Dose: 1 tab Documented by: STEWART Omeprazole (Omeprazole 40 Mg Capsule.Dr) 40 mg PO DAILY@0630 [facility] Last Admin: 04/15/22 05:18 Dose: 40 mg Documented by: XIMENA Senna (Sennosides 8.6 Mg Tablet) 8.6 mg PO BEDTIME [facility] Last Admin: 04/14/22 23:54 Dose: 8.6 mg Documented by: GULSHAN Theophylline (Theophylline Anhydrous Er 300 Mg Tab.Er.12h) 300 mg PO Q12H [facility] Last Admin: 04/14/22 23:55 Dose: 300 mg Documented by: GULSHAN Vilazodone HCl (Vilazodone Hcl 20 Mg Tablet) 20 mg PO DAILY [facility] Last Admin: 04/14/22 09:13 Dose: 20 mg Documented by: STEWART Vitamin D (Cholecalciferol (Vitamin D3) 25 Mcg Tablet) 50 mcg PO DAILY [facility] Last Admin: 04/14/22 09:13 Dose: 50 mcg Documented by: STEWART Labs CBC & Chem 7: 04/13/22 09:19 04/13/22 09:18 Assessment and Plan (1) Respiratory failure: Status: Acute (2) COPD exacerbation: Status: Acute Plan 66-year-old female with history of COPD presents to the hospital with hypercapnia with altered mental status. acute on chronic respiratory failure with hypercapnia:seems improved -? patient found to have hypercapnia and was in icu -? on BiPAP, will continue at this time Transferred to floor from ICU overnight. Continue nebs, steroids. ?COPD exacerbation -? reports increased cough and sputum production as well as dyspnea:sob seems improved switch to po steriods,? DuoNeb,doxycyline ,oxygen -? monitor respiratory status Toxic metabolic encephalopathy due to acute hypercarbic respiratory failure secondary to COPD exacerbation. Improving near her baseline. Obesity: Encouraged for card on calories and weight loss. Pt recommended rehab. ?DVT prophylaxis:? Lovenox. Need for inpatient:awaiting placement Quality Stroke Does the patient have a stroke diagnosis?: No VTE Prior VTE?: No VTE Risk Level:: Medical - moderate - high VTE Device Contraindication: N/A - Device Ordered VTE Drug Contraindication: N/A - Med Ordered
[2022-04-15] MEDS: Fluticasone/Vilanterol 200/25 BLST.W.DEV 1 PUFF INHALE (09:08)
[2022-04-15] MEDS: Albuterol/Iprat 2.5/0.5MG 3 ML AMPUL.NEB INHALE ×4 (09:08→18:56)
[2022-04-15] MEDS: Theophylline Anhydrous ER 300 MG TAB.ER.12H PO ×2 (10:27→20:52)
[2022-04-15] MEDS: Metoprolol Succinate ER 50 MG TAB.ER.24H PO (10:27)
[2022-04-15] MEDS: Multivitamin TABLET 1 TAB PO (10:27)
[2022-04-15] MEDS: ARIPiprazole 10 MG TABLET PO (10:27)
[2022-04-15] MEDS: Magnesium Oxide 400 MG TABLET PO ×2 (10:27→20:53)
[2022-04-15] MEDS: Vilazodone HCL 20 MG TABLET PO (10:27)
[2022-04-15] MEDS: Cholecalciferol (Vitamin D3) 25 MCG TABLET 50 MCG PO (10:27)
[2022-04-15] MEDS: lamoTRIgine 100 MG TABLET 200 MG PO (10:27)
[2022-04-15] MEDS: Aspirin Enteric Coated 81 MG TABLET.DR PO (10:28)
--- NOTE | 2022-04-15 12:10 | P.DS_ITS ---
DS: Providers Provider Date of Service: 04/17/22 Date of admission: 04/13/22 12:17 Primary care physician: rEick Jade MD Consults: 04/14/22 07:42 Consult to Pulmonology Routine Consulting Provider: Caden Acharya Reason for consultation: acute hypoxemic respiratory failure sec to copd. Has provider been notified: No DS: Diagnosis Discharge Diagnosis (1) Respiratory failure: Status: Acute (2) COPD exacerbation: Status: Acute DS: Summary Hospital Course Hospital Course: Date of service and discharge is 04/16/2022: Patient did not go on 04/15/2022 because waiting for rehab. 66-year-old with chronic severe COPD presents with acute on chronic hypercarbic and hypoxic respiratory failure with altered mental status but no fever chills or new productive cough. Hospital course: Acute on chronic respiratory failure with hypercapnia secondary to COPD exacerbation/noncompliance to BiPAP-patient went to ICU and received BiPAP , IV steroids, nebs, doxycycline, oxygen. Also had toxic metabolic encephalopathy secondary to above, which is improved with treatment (see above). Patient was sent to floor from ICU and followed by Pulmonary: nebs, steroids, antibiotics seems to be improving. Needs to use AVAPS while sleeping at night and also during the daytime at least 2 hours Patient was switched to p.o. steroids and antibiotic upon discharge, patient was seen by PT recommended rehab. Patient was advised in detail and strongly to BiPAP compliance. covid test pending for reahb placement. Above management discussed with the patient in detail length she understand and in agreement with the above plan, time spent 50 minutes and 50% time spent on counseling. Significant findings: As above. Procedures performed: None. Treatment and response: As above. Complications: None. Time Spent with Patient Time attestation: Total time spent providing and/or coordinating discharge services: Discharge coordination time: Greater than 30 minutes Quality: Safe Use of Opioids Does Pt have an Active Cancer Diagnosis on the Problem List?: No Quality: Stroke Does the patient have a stroke diagnosis?: No Physical Exam Vital Signs: Vital Signs: Last Vital Signs Temp 98.1 F 04/15/22 11:55 Pulse 100 04/15/22 11:55 Resp 22 H 04/15/22 11:55 BP 151/52 H 04/15/22 11:55 Pulse Ox 92 04/15/22 11:55 Oxygen Flow Rate 3 04/13/22 08:52 BMI result Body Mass Index 31.3 Appearance: Alert.? Oriented X3.? cvs: rrr, [id number] res: air entry diminshed , no rales or wheezing abd: no rebound or guarding ,nt, bs present. ext pulses present , no cyanosis ,Gait well balanced well coordinated. neuro: axo3 , nonfocal. DS: Data Data Completed and Pending Completed studies during hospitalization [Text1]: Procedures Assistance with Respiratory Ventilation, Less than 24 Consecutive Hours, Continuous Positive Airway Pressure (03/01/22) Additional Comments Additional comments: 09:18 09:18 09:18 MCV ? ? ? MCH ? ? ? MCHC ? ? ? RDW ? ? ? Plt Count ? ? ? MPV ? ? ? Immature Gran % (Auto) ? ? ? Neut % (Auto) ? ? ? Lymph % (Auto) ? ? ? [place] % (Auto) ? ? ? Eos % (Auto) ? ? ? Baso % (Auto) ? ? ? Lymph # (Auto) ? ? ? [place] # (Auto) ? ? ? Eos # (Auto) ? ? ? Baso # (Auto) ? ? ? Abs Immat Gran (auto) ? ? ? Absolute Neuts (auto) ? ? ? Absolute Nucleated RBC ? ? ? Nucleated RBC % (auto) ? ? ? PT ?10.5 ? ? INR ?0.9 ? ? O2 Saturation ? ? ? ABG pH at Pt Temp ? ? ? ABG pCO2 at Pt Temp ? ? ? ABG pO2 at Pt Temp ? ? ? ABG HCO3 ? ? ? ABG Base Excess (Actual) ? ? ? VBG pH ? ? ? VBG pCO2 ? ? ? VBG pO2 ? ? ? VBG HCO3 ? ? ? VBG O2 Saturation ? ? ? VBG Base Excess ? ? ? Anion Gap ? ?10 L ? Estim Creat Clear Calc ? ?62.1 ? Estimated GFR ? ?> 60 ? Random Glucose ? ?111 ? Calcium ?A ?9.0 ? Total Bilirubin ? ?0.3 ? AST ? ?22 ? ALT ? ?18 ? Alkaline Phosphatase ? ?70 ? Troponin I High Sens ? ? ?4.7? D B-Natriuretic Peptide ? ? ?91 Total Protein ? ?7.3 ? Albumin ? ?4.4 ? Urine Opiates Screen ? ? ? Urine Fentanyl Screen ? ? ? Ur Barbiturates Screen ? ? ? Ur Phencyclidine Scrn ? ? ? Ur Amphetamines Screen ? ? ? U Benzodiazepines Scrn ? ? ? Urine Cocaine Screen ? ? ? U Marijuana (THC) Screen ? ? ? COVID-19 (EDU) ? ? ? COVID-19 Clin Com ? ? ? Influenza Type A (PCR) ? ? ? Influenza Type B (PCR) ? ? ? RSV RNA Qual (PCR) ? ? ? SARS-CoV-2 RNA (RT-PCR) ? 04/13/22 04/13/22 04/13/22 ? 09:18 09:19 10:14 MCV ? ?100.0 H ? MCH ? ?29.4 ? MCHC ? ?29.4 L ? RDW ? ?14.7 ? Plt Count ? ?346? D ? MPV ? ?9.0 L ? Immature Gran % (Auto) ? ?0.4 ? Neut % (Auto) ? ?70.3 ? Lymph % (Auto) ? ?16.6 L ? [place] % (Auto) ? ?9.0 ? Eos % (Auto) ? ?2.8 ? Baso % (Auto) ? ?0.9 ? Lymph # (Auto) ? ?0.9 L ? [place] # (Auto) ? ?0.5 ? Eos # (Auto) ? ?0.2 ? Baso # (Auto) ? ?0.1 ? Abs Immat Gran (auto) ? ?0.02 ? Absolute Neuts (auto) ? ?3.8 ? Absolute Nucleated RBC ? ?0.000 ? Nucleated RBC % (auto) ? ?0.0 ? PT ? ? ? INR ? ? ? O2 Saturation ? ? ? ABG pH at Pt Temp ? ? ? ABG pCO2 at Pt Temp ? ? ? ABG pO2 at Pt Temp ? ? ? ABG HCO3 ? ? ? ABG Base Excess (Actual) ? ? ? VBG pH ? ? ? VBG pCO2 ? ? ? VBG pO2 ? ?B ? VBG HCO3 ? ? ? VBG O2 Saturation ? ? ? VBG Base Excess ? ? ? Anion Gap ? ? ? Estim Creat Clear Calc ? ? ? Estimated GFR ? ? ? Random Glucose ? ? ? Calcium ? ? ? Total Bilirubin ? ? ? AST ? ? ? ALT ? ? ? Alkaline Phosphatase ? ? ? Troponin I High Sens ? ? ? B-Natriuretic Peptide ? ? ? Total Protein ? ? ? Albumin ? ? ? Urine Opiates Screen ? ? ? Urine Fentanyl Screen ? ? ? Ur Barbiturates Screen ? ? ? Ur Phencyclidine Scrn ? ? ? Ur Amphetamines Screen ? ? ? U Benzodiazepines Scrn ? ? ? Urine Cocaine Screen ? ? ? U Marijuana (THC) Screen ? ? ? COVID-19 (EDU) ?Negative ? ? COVID-19 Clin Com ?See Note ? ? Influenza Type A (PCR) ? ? ?NEGATIVE Influenza Type B (PCR) ? ? ?NEGATIVE RSV RNA Qual (PCR) ? ? ?NEGATIVE SARS-CoV-2 RNA (RT-PCR) ? ? ?NEGATIVE ? 04/13/22 04/13/22 04/13/22 ? 10:49 11:26 15:53 MCV ? ? ? MCH ? ? ? MCHC ? ? ? RDW ? ? ? Plt Count ? ? ? MPV ? ? ? Immature Gran % (Auto) ? ? ? Neut % (Auto) ? ? ? Lymph % (Auto) ? ? ? [place] % (Auto) ? ? ? Eos % (Auto) ? ? ? Baso % (Auto) ? ? ? Lymph # (Auto) ? ? ? [place] # (Auto) ? ? ? Eos # (Auto) ? ? ? Baso # (Auto) ? ? ? Abs Immat Gran (auto) ? ? ? Absolute Neuts (auto) ? ? ? Absolute Nucleated RBC ? ? ? Nucleated RBC % (auto) ? ? ? PT ? ? ? INR ? ? ? O2 Saturation ? ?90.0 ?97.0 ABG pH at Pt Temp ? ?7.31 L ?7.34 L ABG pCO2 at Pt Temp ? ?91 H* ?88 H* ABG pO2 at Pt Temp ? ?60 L ?85 ABG HCO3 ? ?46 H ?48 H ABG Base Excess (Actual)B ? ?15.7 ?18.0 VBG pH ?7.31 L ? ? VBG pCO2 ?122 ? ? VBG pO2 ?45 ? ? VBG HCO3 ?63 H ? ? VBG O2 Saturation ?75.0 ? ? VBG Base Excess ?29.3 ? ? Anion Gap ? ? ? Estim Creat Clear Calc ? XR/XR chest 1V IMPRESSION: Emphysema and coarse lung markings. Question atelectasis at the left lung base. No definite evidence of pulmonary edema or pneumonia. Discharge Plan Discharge Patient Disposition: er [facility] Discharge Diagnosis: Acute hypoxemic respiratory failure secondary to COPD exacerbation. Referrals: [facility] [Outside] - 1 Week Erick Jade MD [Primary Care Provider] - 1 Week Caden Acharya MD [Physician] - 1 Week (follow up outpatient) Discharge Medications: New doxycycline hyclate 100 mg tablet 100 mg PO DAILY Qty: 8 0RF prednisone 20 mg tablet 40 mg PO DAILY Qty: 6 0RF Continued aripiprazole [Abilify] 10 mg Tablet 10 mg PO DAILY 0RF acetaminophen 500 mg Tablet 1,000 mg PO TID PRN (Reason: Headache) 0RF aspirin 81 mg Tablet,Delayed Release (Dr/Ec) 81 mg PO DAILY 0RF Breo Ellipta 200-25 mcg/dose Blister With Device 1 inh INHALATION DAILY 0RF alendronate [Fosamax] 70 mg Tablet 70 mg PO SA 0RF lamotrigine 150 mg Tablet 300 mg PO BEDTIME 0RF lamotrigine 200 mg Tablet 200 mg PO DAILY 0RF magnesium oxide 400 mg magnesium Tablet 400 mg PO BID 0RF montelukast 10 mg Tablet 10 mg PO BEDTIME 0RF multivitamin Tablet 1 tab PO DAILY 0RF albuterol sulfate [Proventil HFA] 90 mcg/actuation Hfa Aerosol Inhaler 2 puff INHALATION QID PRN (Reason: Respiratory Distress) 0RF Viibryd 20 mg Tablet 20 mg PO DAILY 0RF cholecalciferol (vitamin D3) [Vitamin D3] 50 mcg (2,000 unit) Capsule 50 mcg PO DAILY 0RF Spiriva with HandiHaler 18 mcg Capsule, W/Inhalation Device 1 cap INHALATION DAILY 0RF mirtazapine 15 mg tablet 15 mg PO BEDTIME 0RF metoprolol succinate 50 mg Tablet Extended Release 24 Hr 50 mg PO DAILY 0RF docusate sodium 100 mg Capsule 100 mg PO DAILY PRN (Reason: Constipation) Qty: 30 0RF prednisone 10 mg tablet 10 mg PO DAILY 0RF theophylline 300 mg tablet extended release 12 hr 300 mg PO Q12H 30 Days Qty: 60 5RF ipratropium bromide 42 mcg (0.06 %) spray,non-aerosol 2 spray intranasal TID 30 Days Qty: 15 3RF Rx Instructions: administer into each nostril sennosides [Senokot] 8.6 mg tablet 8.6 mg PO BEDTIME 0RF Discharge Orders: Discharge Order (Routine); Ordered 04/16/22 Ordered By: Kelly Pruett Diet: advance to usual diet Activity on Discharge: As tolerated Stand Alone Forms: Patient Portal Discharge page Care Plan Goals: Acute on chronic respiratory failure with hypercapnia secondary to COPD exacerbation/noncompliance to BiPAP. Patient was given nebs, steroids, antibiotics seems to be improving. Needs to use AVAPS while sleeping at night and also during the daytime at least 2 hours Patient was switched to p.o. steroids and antibiotic upon discharge, patient was seen by PT recommended rehab. Health Concerns: As above. Plan of Treatment: As above. Assessment: As above. Discharge Date/Time: 04/16/22 17:55
[2022-04-15] MEDS: Doxycycline Hyclate 100 MG in 0.9 % Sodium Chloride 250 ML 166.67 MG IV (13:09)
--- NOTE | 2022-04-15 17:08 | P.PNPL_ITS ---
Subjective Subjective Date of Service: 04/15/22 Interval history: The patient was seen on exam. She does use BiPAP at nighttime. I am concerned that she is very forgetful. She may not do well in the same environment unless she has more support. She will have Physical therapy evaluate her. I believe she will need rehab based on the fact that she has been falling. From a respiratory status she is doing well this time. Objective Data Labs CBC & Chem 7: 04/13/22 09:19 04/13/22 09:18 Review of Systems Constitutional: Denies fatigue and Denies weakness Eyes: Denies change in vision Denies sore throat Cardiovascular: Denies chest pain and Reports dyspnea Respiratory: Denies chest congestion, Reports cough, Denies pain on inspiration, Denies pain with cough and Reports dyspnea Gastrointestinal: Denies abdominal pain Musculoskeletal: Reports abnormal gait and Reports muscle weakness Reports abnormal gait, Reports memory loss and Denies weakness Psychiatric: Reports depression and Reports memory loss Endocrine: Denies fatigue Physical Exam Vital Signs: Vital Signs: Last Vital Signs Temp 98.2 F 04/15/22 15:12 Pulse 97 04/15/22 15:26 Resp 18 04/15/22 15:26 BP 144/69 H 04/15/22 15:12 Pulse Ox 94 04/15/22 15:12 Oxygen Flow Rate 3 04/13/22 08:52 BMI result Body Mass Index 31.3 Const: General: alert Neck: Neck: Yes normal visual inspection, Yes full ROM and Yes no lymphadenopathy Chest: Chest palpation & inspection: normal inspection of the chest Resp: Auscultation: diminished lung sounds Cardio: Rate: regular rate Rhythm: regular rhythm Heart sounds: S1 normal heart sound present and S2 normal heart sound present GI: Palpation (GI): Soft to palpation and nontender Auscultation: normal bowel sounds Skin: General skin exam: rashes and/or lesions noted Procedures Date of Service Date of Service: 04/15/22 Assessment and Plan Assessment and plan (1) Respiratory failure: Status: Acute (2) COPD exacerbation: Status: Acute (3) Altered mental status: Status: Acute Plan Continue noninvasive ventilator at nighttime VBG tomorrow Continue respiratory therapy Prednisone taper Disposition likely rehab the patient did well at [facility] visit. This is a pulmonary rehabilitation which I go to once a week and may be the best place to be bout of monitor her closely. Time Spent With Patient Time: Total time spent is greater than 50% in coordination of care (as documented) at patient's floor/unit and/or counseling patient: Progress Note: Quality Stroke Does the patient have a stroke diagnosis?: No
[2022-04-15] MEDS: Montelukast Sodium 10 MG TABLET PO (20:52)
[2022-04-15] MEDS: Mirtazapine 15 MG TABLET PO (20:52)
[2022-04-15] MEDS: lamoTRIgine 100 MG TABLET 300 MG PO (20:52)
[2022-04-15] MEDS: Sennosides 8.6 MG TABLET PO (20:53)
[2022-04-16] VITALS (10 sets, daily range): BP systolic 119–159; BP diastolic 50–79; PULSE 76–99; RESP 17–24; TEMP 36.3–37.1; O2SAT 91–98; BMI 30.8
[2022-04-16] MEDS: Albuterol/Iprat 2.5/0.5MG 3 ML AMPUL.NEB INHALE ×4 (00:04→15:39)
[2022-04-16] MEDS: Doxycycline Hyclate 100 MG in 0.9 % Sodium Chloride 250 ML 166.67 MG IV ×2 (02:35→13:49)
[2022-04-16] MEDS: Acetaminophen 325 MG TABLET 975 MG PO (04:02)
[2022-04-16] MEDS: Heparin Sodium,Porcine 5,000 UNIT/ML VIAL 5000 UNIT SUBCUT ×2 (06:24→13:47)
[2022-04-16] MEDS: Omeprazole 40 MG CAPSULE.DR PO (06:25)
[2022-04-16] MEDS: Fluticasone/Vilanterol 200/25 BLST.W.DEV 1 PUFF INHALE (07:38)
[2022-04-16] MEDS: Cholecalciferol (Vitamin D3) 25 MCG TABLET 50 MCG PO (08:51)
[2022-04-16] MEDS: lamoTRIgine 100 MG TABLET 200 MG PO (08:51)
[2022-04-16] MEDS: predniSONE 20 MG TABLET 40 MG PO (08:51)
[2022-04-16] MEDS: Aspirin Enteric Coated 81 MG TABLET.DR PO (08:51)
[2022-04-16] MEDS: Magnesium Oxide 400 MG TABLET PO (08:51)
[2022-04-16] MEDS: Vilazodone HCL 20 MG TABLET PO (08:52)
[2022-04-16] MEDS: Theophylline Anhydrous ER 300 MG TAB.ER.12H PO (08:52)
[2022-04-16] MEDS: ARIPiprazole 10 MG TABLET PO (08:52)
[2022-04-16] MEDS: Metoprolol Succinate ER 50 MG TAB.ER.24H PO (08:52)
[2022-04-16] MEDS: Multivitamin TABLET 1 TAB PO (08:52)
[2022-04-16 14:05] LABS: COVID-19 Test Negative (Negative)
--- NOTE | 2022-04-16 14:45 | MHC.CM.PN ---
IMM 04/16/22 Female 66 DX COPD exacerbation + respiratory failure. STR was recommended by PT. The Pts insurance has agreed to cover respite. is aware. Patient is discharged today to [facility] via S. All discharge information has been sent to the facility. Her Covid test obtained for discharge is negative. It has been sent to the facility. Transport is booked for 4pm.
--- NOTE | 2022-04-16 15:07 | MHC.INPTTRAN ---
Pt alert, and oriented. Had BM today, voiding cloudy urine. OOB with assist. still weak. Has 02 at 3L during day. No acute distress. Takes meds without diff. Denies pain. [place] diet. Has restless legs at times, states not new. VSS. thanks.
== END 2022-04-16 17:55 | disposition skilled nursing facility (03) | DRG 190 ==
LOC: HO.ED 12:13 → HO.EDOVER 12:33 → HO.ICU 13:04 → HO.IMC 21:52
PROVIDERS: Physician Assistant; Admitting Provider Internal Medicine Cardiovascular Disease; Emergency Provider Emergency Medicine; PCP Internal Medicine Rheumatology; Visit Provider Internal Medicine
DX: J44.1 Chronic obstructive pulmonary disease with (acute) exacerbation (principal); G92.8 Other toxic encephalopathy; J96.21 Acute and chronic respiratory failure with hypoxia; J96.22 Acute and chronic respiratory failure with hypercapnia; E66.9 Obesity, unspecified; Z68.30 Body mass index [BMI] 30.0-30.9, adult; Z20.822 Contact with and (suspected) exposure to COVID-19; Z99.81 Dependence on supplemental oxygen; Z86.010 Personal history of colon polyps; Z87.891 Personal history of nicotine dependence; Z88.2 Allergy status to sulfonamides; Z88.5 Allergy status to narcotic agent; Z79.82 Long term (current) use of aspirin; Z79.52 Long term (current) use of systemic steroids; Z79.899 Other long term (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 therapy
CPT/HCPCS: 0241U; 36415; 36600; 71045; 80053; 80307; 82803; 83880; 84484; 85025; 85610; 87635; 93005; 94640; 94660; 97116; 97162; 99284; 99291; J2930

== ENCOUNTER → 2022-09-20 14:50 | Outpatient (BNVA) | payer OTHER, SELFPAY | PROVIDERS: PCP Family Medicine Geriatric Medicine; Visit Provider Hospitalist | DX: J44.9 Chronic obstructive pulmonary disease, unspecified (principal); J96.10 Chronic respiratory failure, unspecified whether with hypoxia or hypercapnia; G47.00 Insomnia, unspecified | CPT/HCPCS: Q3014 ==

== ENCOUNTER 2022-11-02 14:31 | Outpatient (REF) | payer MEDICARE, MEDICAID, SELFPAY ==
[2022-11-02 14:50] LABS: MANUAL DIFF FLAG NO
[2022-11-02 14:56] LABS: Venous Blood Gas Refer to POC result
[2022-11-02 15:01] LABS: VBG Base Excess 12.9 mmol/L; VBG HCO3 41 mmol/L (22-26); VBG pCO2 67 mmHg; VBG pH 7.39 (7.32-7.43); VBG pO2 71 mmHg
[2022-11-02 15:42] LABS: Basophils Absolute Auto 0.1 X10*3/uL (0.0-0.2); Basophils Percent Auto 0.9 % (0-2); Eosinophils Percent Auto 0.4 % (0-4); Hematocrit 41.2 % (37.0-47.0); Hemoglobin 13.3 g/dl (12.0-16.0); Imm Gran Abs Auto 0.15 X10*3/uL (0.00-0.03); Imm Gran Pct Auto 1.4 % (0.0-0.4); Lymphocytes Absolute Auto 0.6 X10*3/uL (1.2-4.9); Mean Corpuscular HGB Conc 32.3 g/dl (31.0-35.0); Mean Corpuscular Hemoglobin 29.8 pg (27.0-33.0); Mean Corpuscular Volume 92.2 fL (80.0-98.0); Mean Platelet Volume 9.3 fL (9.4-12.3); Monocytes Absolute Auto 0.5 X10*3/uL (0.1-1.2); Monocytes Percent Auto 4.5 % (2-11); Neutrophils Absolute Auto 9.1 x10*3/uL (2.0-8.3); Neutrophils Percent Auto 86.8 % (45-73); Platelet Count 566 X10*3/uL (160-400); Red Blood Count 4.47 X10*6/uL (4.20-5.50); Red Cell Distribution Width 14.1 % (11.0-16.0); White Blood Count 10.5 X10*3/uL (4.8-10.8)
[2022-11-02 16:19] LABS: Anion Gap 12 (12-20); Blood Urea Nitrogen 15 mg/dL (9-16); Calcium 9.6 mg/dL (8.4-10.2); Carbon Dioxide 34 mmol/L (22-29); Chloride 93 mmol/L (96-108); Estimated Glomerular Filt Rate > 60; Glucose Random 103 mg/dL (60-115); Sodium 134 mmol/L (135-145)
[2022-11-02 16:49] LABS: Erythrocyte Sedimentation Rate 11 MM/HR (0-20)
== END 2022-11-02 14:32 | disposition home or self-care (01) ==
LOC: HO.LAB 14:31
PROVIDERS: Visit Provider Hospitalist
DX: J44.9 Chronic obstructive pulmonary disease, unspecified (principal); J96.12 Chronic respiratory failure with hypercapnia; J96.11 Chronic respiratory failure with hypoxia; G47.00 Insomnia, unspecified
CPT/HCPCS: 36415; 80048; 82803; 85025; 85652; 99212

== ENCOUNTER 2023-01-24 10:44 | Outpatient (REF) | payer MEDICARE, MEDICAID, SELFPAY ==
[2023-01-24 11:05] VITALS: BP 152/69; PULSE 67; RESP 18; TEMP 36.4; O2SAT 97
[2023-01-24 11:07] VITALS: BMI 36.3
== END 2023-01-24 10:45 | disposition home or self-care (01) ==
LOC: HO.MS 10:44
PROVIDERS: PCP Family Medicine Geriatric Medicine; Visit Provider Ophthalmology
PROC: (CPT 66821; principal; 2023-01-24 12:40)
DX: H26.492 Other secondary cataract, left eye (principal)
CPT/HCPCS: 66821

== ENCOUNTER → 2023-04-15 10:44 | Outpatient (BNVA) | payer MEDICARE, MEDICAID, SELFPAY | PROVIDERS: PCP Family Medicine Geriatric Medicine; Visit Provider Hospitalist | DX: J44.9 Chronic obstructive pulmonary disease, unspecified (principal); J96.10 Chronic respiratory failure, unspecified whether with hypoxia or hypercapnia; G47.00 Insomnia, unspecified | CPT/HCPCS: 99212 ==

== ENCOUNTER 2023-05-02 12:18 | Outpatient (REF) | payer MEDICARE, MEDICAID, SELFPAY ==
[2023-05-02 13:04] VITALS: BP 128/63; PULSE 90; RESP 16; TEMP 36.7; O2SAT 97
[2023-05-02 13:05] VITALS: BMI 35.7
== END 2023-05-02 12:19 | disposition home or self-care (01) ==
LOC: HO.MS 12:18
PROVIDERS: PCP Family Medicine Geriatric Medicine; Visit Provider Ophthalmology
PROC: (CPT 66821; principal; 2023-05-02 16:50)
DX: H26.491 Other secondary cataract, right eye (principal)
CPT/HCPCS: 66821

== ENCOUNTER 2023-06-17 10:41 | Outpatient (AMB) | payer MEDICARE, MEDICAID, SELFPAY ==
--- NOTE | 2023-06-17 10:48 | A.OFFVIS_ITS ---
Intake Vital Signs 06/17/23 10:49 Height 5 ft 2 in Weight 198 lb 6.656 oz BMI 36.3 BP 134/78 Blood Pressure Location Lt brachial Position Sitting Pulse 80 Pulse Source Pulse Oximeter Pulse Oximetry (%) 94 Oxygen Delivery Method Nasal Cannula Oxygen Flow Rate 2 Intake Visit Reasons: COPD Framework Developer Required: No Allergies codeine [Codeine] Allergy (Intermediate, Verified 06/17/23 10:54) RESTLESS/RASH haloperidol [Haldol] Allergy (Intermediate, Verified 06/17/23 10:54) Palpitations Sulfa (Sulfonamide Antibiotics) Allergy (Intermediate, Verified 06/17/23 10:54) HIVES HPI HPI Comments History of Present Illness Details The patient is a 67-year-old woman with known history of COPD and chronic hypoxic and hypercarbic respiratory failure. She 1st did require a trac heostomy in the past and she had a prolonged hospitalization which she was able to be decannulated. She was then placed on noninvasive ventilation. The patient has been inconsistent with the usage. In January of this year the patient was admitted to the hospital with acute on chronic hypercarbic respiratory failure where her pCO2 was about 118 mmHg.. The patient was placed on noninvasive ventilation and her pH normalize and her average pCO2 was between 60-70. She was discharged to use her trilogy at home. At home she is still struggling with the noninvasive ventilator. She has a hard time getting used to it. Her [employer], [employer] will be performing overnight oximetry with an end- tidal CO2 to measure her see you to into appropriately adjust her noninvasive ventilator. She also has made mentioning that she has been more short of breath and she has had more hypoxia. In the office we did perform a 6 minutes walk test and she did require 2 L nasal cannula to maintain her pulse ox above 90%. Therefore, she will be using 3 L instead of to with activity and also with sleep. 03/24/2022 the patient is here for a pulmonary follow-up visit. it was noted that on her chemistries that her bicarb is going up. There was concerns that she is retaining CO2 again. Recently we did adjust the trilogy in the pressures are increased. We did request a download from the trilogy noninvasive ventilator. Her average use is decreased however is taken into account the period of time that she was not at home. That being said, It appears that her minute ventilation is only about 5 L per minute. This is to low. In part is because her respiratory rate had been decreased. Her tidal volumes are much greater measuring between 500-600 mL. Now we have to increase the respiratory rate adequately to increase the minute ventilation. I am hopeful she can tolerate that. In the meantime she does complain about the fitting of the mask and head gear. Is causing her to get some neck discomfort. Therefore I will request a mouth piece from the [facility] to set up a sip and puff so therefore during the daytime she can use sip and puff and not have to use the mask. If she can tolerate this above for several hours this will really benefit her. I will have the patient come in next week once the trilogy is adjusted again to remeasure her ABG or her venous gas. We can also check her theophylline levels to make sure there adequately does in addition to checking her bicarbonate. 09/20/2022 the patient has a telehealth visit today. She is currently residing at the [facility]. The patient again has chronic hypercarbic hypoxic respiratory failure. She uses a noninvasive ventilator at nighttime and also should be using it during the daytime in addition to using ox ygen supplementation. Prior to her going to [facility] the patient was living at home under the care of the [facility] lung pace program. Unfortunately condition continue worsening will fall that she was not see a home. The patient would get forgetful once her CO2 climbed he will forget to put on noninvasive ventilator in with a month that he and the and had multiple falls. After the multiple falls and multiple hospitalizations with acute on chronic hypercarbic respiratory failure the patient was need to be on still home in her [facility] like poor will could not while in the for the care. Therefore she was admitted full- time to nursing. At this point the patient is once a to be home by herself due to her significant hypercarbic respiratory along with her risk of falls and risk for harm. The patient needs to have a repeat ABG done. Will have her follow- up with neck is 6 weeks and undergo an ABG in order to assess her CO2 status. 11/02/2022 the patient is here for a pulmonary follow-up visit. Overall the patient has been doing relatively well. Although she has been noticing increasing tremors and she has been also more drowsy during the daytime. I explained to her that this may be signs of elevated CO2. The patient has not been completely compliant with her noninvasive ventilator. Sometimes she gets tired of using it. Sometimes she falls asleep in does not have it on. I did discuss with her [facility] and they are monitoring closely her use and trying to check up on her to make sure she is using it. will go ahead and have her get some blood work including a venous gas to assess her pCO2. The patient has been using her respiratory therapy as prescribed. She is developing increasing lower extremity edema. We talked about the importance of using compression sto ckings and exercises. I did request from the [facility] to provide her with more exercise activity to allow her to stay active. In the meantime she is monitoring her food intake minimizing her salt intake. 04/15/2023 the patient is here for pulmonary follow-up visit. She still residing at the [facility]. She is using her trilogy noninvasive ventilator every night. However, she has been using more recently because she ended up in the hospital. She was having chest pressure sensation and dizziness. During the hospitalization at [facility] the patient states that she had an ABG done demonstrating a pCO2 58 and per report was okay. Therefore, will hold off on doing an ABG today. The patient has been fairly relatively well from a respiratory status. She does complaint of heaviness of the chest. On examination she is very diminished. Therefore likely has significant air trapping hyperinflation them every resulting in some chest pressure sensation. I did recommend she start using the trilogy with a sip and puff during the daytime to help her with the air trapping. The patient has also gained weight and that is also going to contribute to additional respiratory symptoms. The patient needs to start working on weight management with the help of the services provided. The patient is using her diuretics with good effect. No significant edema at this time. It is not clear if she is using the theophylline. She has been on multiple medications and has got to multiple institutions so therefore it is hard to know if those removed and if it was stopped for particular reason. We should recheck her theophylline levels if she is on theophylline. Otherwise restart the theophylline if she is off it and then recheck levels. She should stay within the low therapeutic range to help her with her severe COPD. Patient is using her oxygen at 3 L continues with good effect. Again, I reached out to the [employer], [employer], to rete she had uses sip and puff device that she can use during the daytime 06/17/2023 the patient is here for pulmonary follow-up visit. The patient has been doing well. She is looking now to move to a half-way. in the meantime she is using her noninvasive ventilator. The noninvasive ventilator has been affecting beneficial. We did have her undergo a venous blood gas in appears that her pH is stable. She understands that if she does move to a half-way she went to find a way to make sure that she continues use her noninvasive ventilator as prescribed. She continues on respiratory therapy. She continues oxygen supplementation at 3 L could would response. [facility] Medical History Acute and chronic respiratory failure with hypercapnia Acute metabolic encephalopathy Acute on chronic respiratory failure with hypoxia and hypercapnia Bipolar depression Bronchitis Bronchopneumonia Chest pain Chronic respiratory alkalosis Chronic respiratory failure CO2 retention COPD (chronic obstructive pulmonary disease) Eczema Fall ILD (interstitial lung disease) Insomnia Limb swelling Osteopenia (~2012) Tubular adenoma of colon (~2006) Vasomotor rhinitis Surgical History History of carpal tunnel surgery (~2000) History of cataract surgery (~2018) History of colonoscopy History of left inguinal hernia repair (~1995) History of tracheostomy (~2016) History of ventral hernia repair (~2003) Family History Other Hypertension Social History Household Members: None Housing: Apartment Housing Other:: person comes to do housework. Are you a primary customer care associate to a significant other at home: No Do you presently have visiting nurse or other home services: Yes Alcohol intake: unknown Patient Tobacco Use Status: Former Tobacco user Quit Date: 2018 Tobacco use type: Cigarette Years Smoked: 20+ years e-Cigarette/Vaping Use: Never Used Second Hand Smoke Exposure: No Advance Directives Date on File: 11/30/21 service: No Current occupational status: disabled Review of Systems Const Reports fatigue, Denies night sweats and Reports weight gain ENT Denies change in voice, Denies lip swelling, Denies mouth pain, Reports nasal congestion, Reports nasal discharge and Denies tongue swelling Card Denies chest pain, Reports pedal edema, Denies leg edema, Denies dyspnea and Reports dyspnea on exertion Resp Denies change in phlegm color, Denies chest congestion, Reports cough, Denies pain on inspiration, Denies pain with cough, Denies dyspnea, Reports dyspnea on exertion and Denies wheezing GI Denies abdominal pain Musc Denies no additional complaints and Reports abnormal gait Skin/Breast Reports erythema and Reports skin swelling Neuro Denies Neuro-related abnormal movements, Reports abnormal gait, Reports memory loss and Reports tremor(s) Psych Reports depression and Reports memory loss Endo Reports fatigue Gerson/Lymph Denies easy bleeding and Denies lymphadenopathy Aller/Immun Denies lip swelling, Denies tongue swelling and Denies wheezing Physical Exam Vital Signs: Last Vital Signs Pulse 80 06/17/23 10:49 BP 134/78 06/17/23 10:49 Pulse Ox 94 06/17/23 10:49 Oxygen Delivery Method Nasal Cannula 06/17/23 10:49 Oxygen Flow Rate 2 06/17/23 10:49 BMI result Body Mass Index 36.3 Last Vital Signs Temp 98.2 F 04/15/22 15:12 Pulse 97 04/15/22 15:26 Resp 18 04/15/22 15:26 BP 144/69 H 04/15/22 15:12 Pulse Ox 94 04/15/22 15:12 Oxygen Flow Rate 3 04/13/22 08:52 BMI result Body Mass Index 31.3 Const General: alert Neck Neck: Yes normal visual inspection, Yes full ROM and Yes no lymphadenopathy Chest Chest palpation & inspection: normal inspection of the chest Resp Auscultation: diminished lung sounds Cardio Rate: regular rate Rhythm: regular rhythm Heart sounds: S1 normal heart sound present and S2 normal heart sound present GI Palpation (GI): Soft to palpation and nontender Auscultation: normal bowel sounds Skin General skin exam: rashes and/or lesions noted Assessment & Plan Assessment & Plan (1) COPD (chronic obstructive pulmonary disease): Code(s): J44.9 - Chronic obstructive pulmonary disease, unspecified (2) Chronic respiratory failure: Code(s): J96.10 - Chronic respiratory failure, unspecified whether with hypoxia or hypercapnia (3) Insomnia: Code(s): G47.00 - Insomnia, unspecified Plan contiune nighttime noninvasive ventilator use. Current setting seem to be appropriate, AVAPSE while sleeping DME to re-teach how to anaid the sip and puff to use while awake continue respiratory therapy continue oxygen at 3 liters/minute via nasal cannula Increase exercise activity weight management copression stocking diuresis as tolerated F/U 3-4 months Orders: Orders Basic Metabolic Panel 06/17/23 J96.90 - Respiratory failure, unspecified, unspecified whether with hypoxia or hypercapnia, J44.9 - Chronic obstructive pulmonary disease, unspecified Venous Blood Gas 06/17/23 J96.90 - Respiratory failure, unspecified, unspecified whether with hypoxia or hypercapnia, J44.9 - Chronic obstructive pulmonary disease, unspecified Complete Blood Count Auto Diff 06/17/23 J96.90 - Respiratory failure, unspecified, unspecified whether with hypoxia or hypercapnia, J44.9 - Chronic obstructive pulmonary disease, unspecified Erythrocyte Sedimentation Rate 06/17/23 J96.90 - Respiratory failure, unspecifie d, unspecified whether with hypoxia or hypercapnia, J44.9 - Chronic obstructive pulmonary disease, unspecified Coding Level of Care Code Est Pt Level 4 (54900) Diagnoses COPD (chronic obstructive pulmonary disease) J44.9 Chronic respiratory failure J96.10 Insomnia G47.00 Time Spent (min) 19
[2023-06-17 10:49] VITALS: BP 134/78; PULSE 80; O2SAT 94; BMI 36.3
== END 2023-06-17 11:16 | disposition home or self-care (01) ==
PROVIDERS: PCP Family Medicine Geriatric Medicine; Visit Provider Hospitalist
DX: J44.9 Chronic obstructive pulmonary disease, unspecified (principal); J96.10 Chronic respiratory failure, unspecified whether with hypoxia or hypercapnia; G47.00 Insomnia, unspecified
CPT/HCPCS: 99214

== ENCOUNTER 2023-06-17 10:41 | Outpatient (REF) | payer MEDICARE, MEDICAID, SELFPAY ==
[2023-06-17 11:52] LABS: Venous Blood Gas Refer to POC result
[2023-06-17 11:53] LABS: VBG Base Excess 10.1 mmol/L; VBG HCO3 38 mmol/L (22-26); VBG pCO2 66 mmHg; VBG pH 7.36 (7.32-7.43); VBG pO2 40 mmHg
[2023-06-17 13:55] LABS: MANUAL DIFF FLAG NO
[2023-06-17 14:23] LABS: Basophils Absolute Auto 0.1 X10*3/uL (0.0-0.2); Basophils Percent Auto 0.8 % (0-2); Eosinophils Absolute Auto 0.1 X10*3/uL (0.0-0.4); Eosinophils Percent Auto 0.8 % (0-4); Hematocrit 40.6 % (37.0-47.0); Hemoglobin 13.3 g/dl (12.0-16.0); Imm Gran Pct Auto 1.1 % (0.0-0.4); Lymphocytes Absolute Auto 0.6 X10*3/uL (1.2-4.9); Lymphocytes Percent Auto 6.3 % (20-40); Mean Corpuscular HGB Conc 32.8 g/dl (31.0-35.0); Mean Corpuscular Hemoglobin 31.1 pg (27.0-33.0); Mean Corpuscular Volume 95.1 fL (80.0-98.0); Mean Platelet Volume 9.5 fL (9.4-12.3); Monocytes Absolute Auto 0.5 X10*3/uL (0.1-1.2); Monocytes Percent Auto 5.7 % (2-11); Neutrophils Absolute Auto 7.9 x10*3/uL (2.0-8.3); Neutrophils Percent Auto 85.3 % (45-73); Platelet Count 506 X10*3/uL (160-400); Red Blood Count 4.27 X10*6/uL (4.20-5.50); Red Cell Distribution Width 13.6 % (11.0-16.0); White Blood Count 9.2 X10*3/uL (4.8-10.8)
[2023-06-17 15:07] LABS: Erythrocyte Sedimentation Rate 17 MM/HR (0-20)
[2023-06-17 15:39] LABS: Anion Gap 13 (12-20); Blood Urea Nitrogen 12 mg/dL (9-16); Calcium 9.2 mg/dL (8.4-10.2); Carbon Dioxide 30 mmol/L (22-29); Chloride 97 mmol/L (96-108); Estimated Glomerular Filt Rate 55; Glucose Random 88 mg/dL (60-115); Potassium 4.7 mmol/L (3.3-5.1); Sodium 135 mmol/L (135-145)
== END 2023-06-17 10:42 | disposition home or self-care (01) ==
LOC: HO.LAB 10:41
PROVIDERS: PCP Family Medicine Geriatric Medicine; Visit Provider Hospitalist
DX: J44.9 Chronic obstructive pulmonary disease, unspecified (principal); J96.90 Respiratory failure, unspecified, unspecified whether with hypoxia or hypercapnia; G47.00 Insomnia, unspecified; Z99.81 Dependence on supplemental oxygen
CPT/HCPCS: 36415; 80048; 82803; 85025; 85652; 99212

== ENCOUNTER 2023-09-20 09:47 | Outpatient (AMB) | payer MEDICARE, MEDICAID, SELFPAY ==
--- NOTE | 2023-09-20 09:49 | A.OFFVIS_ITS ---
Intake Vital Signs 09/20/23 10:12 Height 5 ft 2 in Weight 198 lb 6.656 oz BMI 36.3 Intake Visit Reasons: COPD Allergies codeine [Codeine] Allergy (Intermediate, Verified 09/20/23 10:12) RESTLESS/RASH haloperidol [Haldol] Allergy (Intermediate, Verified 09/20/23 10:12) Palpitations Sulfa (Sulfonamide Antibiotics) Allergy (Intermediate, Verified 09/20/23 10:12) HIVES HPI HPI Comments History of Present Illness Details The patient is a 68-year-old woman with known history of COPD and chronic hypoxic and hypercarbic respiratory failure. She 1st did require a tracheostomy in the past and she had a prolonged hospitalization which she was able to be decannulated. She was then placed on noninvasive ventilation. The patient has been inconsistent with the usage. In January of this year the patient was admitted to the hospital with acute on chronic hypercarbic respiratory failure where her pCO2 was about 118 mmHg.. The patient was placed on noninvasive ventilation and her pH normalize and her average pCO2 was between 60-70. She was discharged to use her trilogy at home. At home she is still struggling with the noninvasive ventilator. She has a hard time getting used to it. Her [employer], [employer] will be performing overnight oximetry with an end- tidal CO2 to measure her see you to into appropriately adjust her noninvasive ventilator. She also has made mentioning that she has been more short of breath and she has had more hypoxia. In the office we did perform a 6 minutes walk test and she did require 2 L nasal cannula to maintain her pulse ox above 90%. Therefore, she will be using 3 L instead of to with activity and also with sleep. 03/24/2022 the patient is here for a pulm onary follow-up visit. it was noted that on her chemistries that her bicarb is going up. There was concerns that she is retaining CO2 again. Recently we did adjust the trilogy in the pressures are increased. We did request a download from the trilogy noninvasive ventilator. Her average use is decreased however is taken into account the period of time that she was not at home. That being said, It appears that her minute ventilation is only about 5 L per minute. This is to low. In part is because her respiratory rate had been decreased. Her tidal volumes are much greater measuring between 500-600 mL. Now we have to increase the respiratory rate adequately to increase the minute ventilation. I am hopeful she can tolerate that. In the meantime she does complain about the fitting of the mask and head gear. Is causing her to get some neck discomfort. Therefore I will request a mouth piece from the [employer] to set up a sip and puff so therefore during the daytime she can use sip and puff and not have to use the mask. If she can tolerate this above for several hours this will really benefit her. I will have the patient come in next week once the trilogy is adjusted again to remeasure her ABG or her venous gas. We can also check her theophylline levels to make sure there adequately does in addition to checking her bicarbonate. 09/20/2022 the patient has a telehealth visit today. She is currently residing at the [facility]. The patient again has chronic hypercarb ic hypoxic respiratory failure. She uses a noninvasive ventilator at nighttime and also should be using it during the daytime in addition to using oxygen supplementation. Prior to her going to custodial the patient was living at home under the care of the [facility] lung pace program. Unfortunately condition continue worsening will fall that she was not see a home. The patient would get forgetful once her CO2 climbed he will forget to put on noninvasive ventilator in with a month that he and the and had multiple falls. After the multiple falls and multiple hospitalizations with acute on chronic hypercarbic respiratory failure the patient was need to be on still home in her [facility] like poor will could not while in the for the care. Therefore she was admitted full- time to nursing. At this point the patient is once a to be home by herself due to her significant hypercarbic respiratory along with her risk of falls and risk for harm. The patient needs to have a repeat ABG done. Will have her follow- up with neck is 6 weeks and undergo an ABG in order to assess her CO2 status. 11/02/2022 the patient is here for a pulmonary follow-up visit. Overall the patient has been doing relatively well. Although she has been noticing increasing tremors and she has been also more drowsy during the daytime. I explained to her that this may be signs of elevated CO2. The patient has not been completely compliant with her noninvasive ventilator. Sometimes she gets tired of using it. Sometimes she falls asleep in does not have it on. I did discuss with her custodial and they are monitoring closely her use and trying to check up on her to make sure she is using it. will go ahead and have her get some blood work including a venous gas to assess her pCO2. The patient has been using her respiratory therapy as prescribed. She is developing increasing lower extremity edema. We talked about the importance of using compression stockings and exercises. I did request from the custodial to provide her with more exercise activity to allow her to stay active. In the meantime she is monitoring her food intake minimizing her salt intake. 04/15/2023 the patient is here for pulmon renetta follow-up visit. She still residing at the [facility]. She is using her trilogy noninvasive ventilator every night. However, she has been using more recently because she ended up in the hospital. She was having chest pressure sensation and dizziness. During the hospitalization at [facility] the patient states that she had an ABG done demonstrating a pCO2 58 and per report was okay. Therefore, will hold off on doing an ABG today. The patient has been fairly relatively well from a respiratory status. She does complaint of heaviness of the chest. On examination she is very diminished. Therefore likely has significant air trapping hyperinflation them every resulting in some chest pressure sensation. I did recommend she start using the trilogy with a sip and puff during the daytime to help her with the air trapping. The patient has also gained weight and that is also going to contribute to additional respiratory symptoms. The patient needs to start working on weight management with the help of the services provided. The patient is using her diuretics with good effect. No significant edema at this time. It is not clear if she is using the theophylline. She has been on multiple medications and has got to multiple institutions so therefore it is hard to know if those removed and if it was stopped for particular reason. We should recheck her theophylline levels if she is on theophylline. Otherwise restart the theophylline if she is off it and then recheck levels. She should stay within the low therapeutic range to help her with her severe COPD. Patient is using her oxygen at 3 L continues with good effect. Again, I reached out to the [employer], [employer], to rete she had uses sip and puff device that she can use during the daytime 06/17/2023 the patient is here for pulmonary follow-up visit. The patient has been doing well. She is looking now to move to a intermediate. in the meantime she is using her noninvasive ventilator. The noninvasive ventilator has been affecting beneficial. We did have her undergo a venous blood gas in appears that her pH is stable. She understands that if she does move to a intermediate she went to find a way to make sure that she continues use her noninvasive ventilator as prescribed. She continues on respiratory therapy. She continues oxygen supplementation at 3 L could would response. 09/20/2023 the patient has a telehealth visit today. Unfortunately she could not make it in from her residence. She has been more depressed lately. She has recently found out that she lost the services from her [facility]. There been with her for many years. In addition to that the patient has not been using her Trelegy ventilator. She is try to find out how long she can go without it. She was wondering if she can have blood work to see how well her CO2 is while she is not using it. However, I encouraged her to use it since we know that her baseline CO2 is already elevated and by using the ventilator she has better reserved in case she develops an exacerbation or an acute illness. The patient will start using her ventilator at nighttime. I did put him for blood work and she can always have the blood work done here or she can find out another means of doing a. But getting a blood gas will be difficult to do otherwise. The patient did recently have a respiratory illness with a virus. Was not COVID. She was not giving any prednisone or antibiotics. Her cough is not too bad. If the cough worsens with worsening congestion then using a antibiotic to minimize on the postviral bacterial infections would be reasonable. [facility] Medical History Acute and chronic respiratory failure with hypercapnia Acute metabolic encephalopathy Acute on chronic respiratory failure with hypoxia and hypercapnia Bipolar depression Bronchitis Bronchopneumonia Chest pain Chronic respiratory alkalosis Chronic respiratory failure CO2 retention COPD (chronic obstructive pulmonary disease) Eczema Fall ILD (interstitial lung disease) Insomnia Limb swelling Osteopenia (~2012) Tubular adenoma of colon (~2006) Vasomotor rhinitis Surgical History History of carpal tunnel surgery (~2000) History of cataract surgery (~2018) History of colonoscopy History of left inguinal hernia repair (~1995) History of tracheostomy (~2016) History of ventral hernia repair (~2003) Family History Other Hypertension Social History Household Members: None Housing: Apartment Housing Other:: person comes to do housework. Are you a primary career law clerk to a significant other at home: No Do you presently have visiting nurse or other home services: Yes Alcohol intake: unknown Patient Tobacco Use Status: Former Tobacco user Quit Date: 2018 Tobacco use type: Cigarette Years Smoked: 20+ years e-Cigarette/Vaping Use: Never Used Second Hand Smoke Exposure: No Advance Directives Date on File: 11/30/21 service: No Current occupational status: disabled Review of Systems Const Reports fatigue, Denies night sweats and Reports weight gain ENT Denies change in voice, Denies lip swelling, Denies mouth pain, Reports nasal congestion, Reports nasal discharge and Denies tongue swelling Card Denies chest pain, Reports pedal edema, Denies leg edema, Denies dyspnea and Reports dyspnea on exertion Resp Denies change in phlegm color, Denies chest congestion, Reports cough, Denies pain on inspiration, Denies pain with cough, Denies dyspnea, Reports dyspnea on exertion and Denies wheezing GI Denies abdominal pain Musc Denies no additional complaints and Reports abnormal gait Skin/Breast Reports erythema and Reports skin swelling Neuro Denies Neuro-related abnormal movements, Reports abnormal gait, Reports memory loss and Reports tremor(s) Psych Reports depression and Reports memory loss Endo Reports fatigue Gerson/Lymph Denies easy bleeding and Denies lymphadenopathy Aller/Immun Denies lip swelling, Denies tongue swelling and Denies wheezing Physical Exam Vital Signs: BMI result Body Mass Index 36.3 Const General: cooperative and comfortable Orientation/consciousness: patient oriented x3 Resp Effort & Inspection: normal respiratory effort and able to speak in complete sentences Neuro General: patient oriented x3 Assessment & Plan Assessment & Plan (1) COPD (chronic obstructive pulmonary disease): Code(s): J44.9 - Chronic obstructive pulmonary disease, unspecified Qualifiers: COPD type: emphysema Emphysema type: centrilobular Qualified Code(s): J43.2 - Centrilobular emphysema (2) Chronic respiratory failure: Code(s): J96.10 - Chronic respiratory failure, unspecified whether with hypoxia or hypercapnia Qualifiers: Respiratory failure complication: hypoxia and hypercapnia Qualified Code(s): J96.11 - Chronic respiratory failure with hypoxia; J96.12 - Chronic respiratory failure with hypercapnia (3) Insomnia: Code(s): G47.00 - Insomnia, unspecified Qualifiers: Insomnia type: primary Qualified Code(s): F51.01 - Primary insomnia Plan restart nighttime noninvasive ventilator use. Current setting seem to be appropriate, AVAPSE while sleeping DME to re-teach how to anaid the sip and puff to use while awake Bloodwork, venous gas continue respiratory therapy continue oxygen at 3 liters/minute via nasal cannula Increase exercise activity weight management copression stocking diuresis as tolerated F/U 3-4 months Orders: Orders Basic Metabolic Panel Today J44.9 - Chronic obstructive pulmonary disease, unspecified, J96.90 - Respiratory failure, unspecified, unspecified whether with hypoxia or hypercapnia Complete Blood Count Auto Diff Today J44.9 - Chronic obstructive pulmonary disease, unspecified, J96.90 - Respiratory failure, unspecified, unspecified whether with hypoxia or hypercapnia Erythrocyte Sedimentation Rate Today J44.9 - Chronic obstructive pulmonary disease, unspecified, J96.90 - Respiratory failure, unspecified, unspecified whether with hypoxia or hypercapnia Venous Blood Gas Today J44.9 - Chronic obstructive pulmonary disease, unspecified, J96.90 - Respiratory failure, unspecified, unspecified whether with hypoxia or hypercapnia Telehealth Telehealth Location of provider rendering services: practice address Location of patient: address on file Patient Identification confirmed using: Name, : Yes Telehealth method: voice only Patient verbally consented to treatment: Yes Patient verbally consented to billing insurance company: Yes Patient informed of any privacy concerns related to visit: Yes Coding Level of Care Code Tele Est Pt Level 4 (09653) Diagnoses Centrilobular emphysema J43.2 COPD type: emphysema Emphysema type: centrilobular Chronic respiratory failure with hypoxia and hypercapnia J96.11; J96.12 Respiratory failure complication: hypoxia and hypercapnia Primary insomnia F51.01 Insomnia type: primary Time Spent (min) 15
[2023-09-20 10:12] VITALS: BMI 36.3
== END 2023-09-20 10:13 | disposition home or self-care (01) ==
PROVIDERS: PCP Family Medicine Geriatric Medicine; Visit Provider Hospitalist
DX: J43.2 Centrilobular emphysema (principal); J96.11 Chronic respiratory failure with hypoxia; J96.12 Chronic respiratory failure with hypercapnia; F51.01 Primary insomnia
CPT/HCPCS: 99442

== ENCOUNTER → 2023-09-20 09:47 | Outpatient (BNVA) | payer MEDICARE, MEDICAID, SELFPAY | PROVIDERS: PCP Family Medicine Geriatric Medicine; Visit Provider Hospitalist | DX: J96.90 Respiratory failure, unspecified, unspecified whether with hypoxia or hypercapnia (principal); J44.9 Chronic obstructive pulmonary disease, unspecified ==

== ENCOUNTER 2023-12-23 12:38 | Outpatient (REF) | payer MEDICARE, MEDICAID, SELFPAY ==
[2023-12-23 14:00] LABS: MANUAL DIFF FLAG NO
[2023-12-23 14:06] LABS: Venous Blood Gas Refer to POC result
[2023-12-23 14:08] LABS: VBG pCO2 71 mmHg; VBG pH 7.39 (7.32-7.43)
[2023-12-23 14:09] LABS: VBG Base Excess 15.4 mmol/L; VBG HCO3 44 mmol/L (22-26); VBG pO2 46 mmHg
[2023-12-23 14:14] LABS: Basophils Absolute Auto 0.1 X10*3/uL (0.0-0.2); Basophils Percent Auto 0.7 % (0-2); Eosinophils Absolute Auto 0.1 X10*3/uL (0.0-0.4); Hematocrit 39.1 % (37.0-47.0); Hemoglobin 12.4 g/dl (12.0-16.0); Imm Gran Abs Auto 0.08 X10*3/uL (0.00-0.03); Imm Gran Pct Auto 0.9 % (0.0-0.4); Lymphocytes Absolute Auto 0.5 X10*3/uL (1.2-4.9); Lymphocytes Percent Auto 5.5 % (20-40); Mean Corpuscular HGB Conc 31.7 g/dl (31.0-35.0); Mean Corpuscular Hemoglobin 29.8 pg (27.0-33.0); Mean Platelet Volume 9.1 fL (9.4-12.3); Monocytes Absolute Auto 0.4 X10*3/uL (0.1-1.2); Monocytes Percent Auto 4.7 % (2-11); Neutrophils Absolute Auto 7.9 x10*3/uL (2.0-8.3); Neutrophils Percent Auto 87.2 % (45-73); Platelet Count 515 X10*3/uL (160-400); Red Blood Count 4.16 X10*6/uL (4.20-5.50); Red Cell Distribution Width 14.1 % (11.0-16.0)
[2023-12-23 14:21] LABS: Anion Gap 15 (12-20); Blood Urea Nitrogen 10 mg/dL (9-16); Calcium 9.5 mg/dL (8.4-10.2); Carbon Dioxide 37 mmol/L (22-29); Chloride 90 mmol/L (96-108); Estimated Glomerular Filt Rate > 60; Glucose Random 120 mg/dL (60-115); Potassium 4.4 mmol/L (3.3-5.1); Sodium 138 mmol/L (135-145)
[2023-12-23 14:54] LABS: Erythrocyte Sedimentation Rate 14 MM/HR (0-20)
== END 2023-12-23 12:39 | disposition home or self-care (01) ==
LOC: HO.LAB 12:38
PROVIDERS: PCP Family Medicine Geriatric Medicine; Visit Provider Hospitalist
DX: J44.9 Chronic obstructive pulmonary disease, unspecified (principal); J43.2 Centrilobular emphysema; J96.12 Chronic respiratory failure with hypercapnia; J96.11 Chronic respiratory failure with hypoxia; F51.01 Primary insomnia; R91.1 Solitary pulmonary nodule; S22.42XS Multiple fractures of ribs, left side, sequela
CPT/HCPCS: 36415; 80048; 82803; 85025; 85652; 99212

== ENCOUNTER 2023-12-23 12:38 | Outpatient (AMB) | payer MEDICARE, MEDICAID, SELFPAY ==
[2023-12-23 13:14] VITALS: BP 128/70; PULSE 89; O2SAT 91; BMI 36.3
--- NOTE | 2023-12-23 13:14 | MHC.OFFVIS ---
Intake Vital Signs 12/23/23 13:14 Height 5 ft 2 in Weight 198 lb 6.656 oz BMI 36.3 BP 128/70 Blood Pressure Location Lt brachial Position Sitting Pulse 89 Pulse Source Pulse Oximeter Pulse Oximetry (%) 91 L Oxygen Delivery Method Room Air Comment 3 Liters Oxygen(Parnell) Intake Visit Reasons: COPD Fruit Thinner Required: No Allergies codeine [Codeine] Allergy (Intermediate, Verified 12/23/23 13:18) RESTLESS/RASH haloperidol [Haldol] Allergy (Intermediate, Verified 12/23/23 13:18) Palpitations Sulfa (Sulfonamide Antibiotics) Allergy (Intermediate, Verified 12/23/23 13:18) HIVES HPI HPI Comments History of Present Illness Details The patient is a 68-year-old woman with known history of COPD and chronic hypoxic and hypercarbic respiratory failure. She 1st did require a tracheostomy in the past and she had a prolonged hospitalization which she was able to be decannulated. She was then placed on noninvasive ventilation. The patient has been inconsistent with the usage. In January of this year the patient was admitted to the hospital with acute on chronic hypercarbic respiratory failure where her pCO2 was about 118 mmHg.. The patient was placed on noninvasive ventilation and her pH normalize and her average pCO2 was between 60-70. She was discharged to use her trilogy at home. At home she is still struggling with the noninvasive ventilator. She has a hard time getting used to it. Her [employer], [employer] will be performing overnight oximetry with an end-tidal CO2 to measure her see you to into appropriately adjust her noninvasive ventilator. She also has made mentioning that she has been more short of breath and she has had more hypoxia. In the office we did perform a 6 minutes walk test and she did require 2 L nasal cannula to maintain her pulse ox above 90%. Therefore, she will be using 3 L instead of to with activity and also with sleep. 04/15/2023 the patient is here for pulmonary follow-up visit. She still residing at the [facility]. She is using her trilogy noninvasive ventilator every night. However, she has been using more recently because she ended up in the hospital. She was having chest pressure sensation and dizziness. During the hospitalization at [facility] the patient states that she had an ABG done demonstrating a pCO2 58 and per report was okay. Therefore, will hold off on doing an ABG today. The patient has been fairly relatively well from a respiratory status. She does complaint of heaviness of the chest. On examination she is very diminished. Therefore likely has significant air trapping hyperinflation them every resulting in some chest pressure sensation. I did recommend she start using the trilogy with a sip and puff during the daytime to help her with the air trapping. The patient has also gained weight and that is also going to contribute to additional respiratory symptoms. The patient needs to start working on weight management with the help of the services provided. The patient is using her diuretics with good effect. No significant edema at this time. It is not clear if she is using the theophylline. She has been on multiple medications and has got to multiple institutions so therefore it is hard to know if those removed and if it was stopped for particular reason. We should recheck her theophylline levels if she is on theophylline. Otherwise restart the theophylline if she is off it and then recheck levels. She should stay within the low therapeutic range to help her with her severe COPD. Patient is using her oxygen at 3 L continues with good effect. Again, I reached out to the [employer], [employer], to rete she had uses sip and puff device that she can use during the daytime 06/17/2023 the patient is here for pulmonary follow-up visit. The patient has been doing well. She is looking now to move to a skilled nursing. in the meantime she is using her noninvasive ventilator. The noninvasive ventilator has been affecting beneficial. We did have her undergo a venous blood gas in appears that her pH is stable. She understands that if she does move to a skilled nursing she went to find a way to make sure that she continues use her noninvasive ventilator as prescribed. She continues on respiratory therapy. She continues oxygen supplementation at 3 L could would response. 09/20/2023 the patient has a telehealth visit today. Unfortunately she could not make it in from her residence. She has been more depressed lately. She has recently found out that she lost the services from her [facility]. There been with her for many years. In addition to that the patient has not been using her Trelegy ventilator. She is try to find out how long she can go without it. She was wondering if she can have blood work to see how well her CO2 is while she is not using it. However, I encouraged her to use it since we know that her baseline CO2 is already elevated and by using the ventilator she has better reserved in case she develops an exacerbation or an acute illness. The patient will start using her ventilator at nighttime. I did put him for blood work and she can always have the blood work done here or she can find out another means of doing a. But getting a blood gas will be difficult to do otherwise. The patient did recently have a respiratory illness with a virus. Was not COVID. She was not giving any prednisone or antibiotics. Her cough is not too bad. If the cough worsens with worsening congestion then using a antibiotic to minimize on the postviral bacterial infections would be reasonable. 12/23/2023 the patient is here for a pulmonary follow-up visit. Since we last spoke the patient did have a fall on her senior living. She fractured multiple ribs and was admitted to [facility] with acute on chronic hypercarbic respiratory failure. She was placed on BiPAP and was able to stabilize. She did not require invasive ventilation. The patient had not been using her noninvasive ventilator at the senior living. This is unfortunate. She understands the with her condition she relies on this therapy. The patient has been using now regularly since she was discharged from the hospital. She is looking to be placed in a skilled nursing. Therefore, she is making the arrangements. We did have her undergo a venous blood gas today and her acid-base status is stable and pCO2 is back to her baseline. Her bicarbonate always will be elevated to try to compensate for the hypercarbia and right now is at 37. she does continue to use her respiratory therapy as prescribed. She is also using oxygen continuously throughout the day with good effect. Once the patient is out of the senior living to a skilled nursing will see about getting pulmonary function studies and starting outpatient pulmonary rehabilitation. Also to note while she was at [facility] she did have a CT scan of the chest that was personally by me. She had multiple rib fractures on the left 1 which was displaced. Also has small subcentimeter pulmonary nodule that will follow-up in a year's time. [facility] Medical History (Updated 12/25/23 @ 19:34 by Caden Acharya MD) Rib fractures Pulmonary nodule Tubular adenoma of colon (~2006) Osteopenia (~2012) Bronchopneumonia Chest pain Chronic respiratory alkalosis ILD (interstitial lung disease) CO2 retention Acute on chronic respiratory failure with hypoxia and hypercapnia Bipolar depression Eczema Limb swelling Insomnia Bronchitis Vasomotor rhinitis COPD (chronic obstructive pulmonary disease) Chronic respiratory failure Fall Acute metabolic encephalopathy Acute and chronic respiratory failure with hypercapnia Surgical History History of carpal tunnel surgery (~2000) History of ventral hernia repair (~2003) History of left inguinal hernia repair (~1995) History of tracheostomy (~2016) History of cataract surgery (~2018) History of colonoscopy Family History Other Hypertension Social History Household Members: None Housing: Apartment Housing Other:: person comes to do housework. Are you a primary neonatal intensive care nurse to a significant other at home: No Do you presently have visiting nurse or other home services: Yes Alcohol intake: unknown Patient Tobacco Use Status: Former Tobacco user Quit Date: 2018 Tobacco use type: Cigarette Years Smoked: 20+ years e-Cigarette/Vaping Use: Never Used Second Hand Smoke Exposure: No Advance Directives Date on File: 11/30/21 service: No Current occupational status: disabled Review of Systems Const Reports fatigue, Denies night sweats and Reports weight gain ENT Denies change in voice, Denies lip swelling, Denies mouth pain, Reports nasal congestion, Reports nasal discharge and Denies tongue swelling Card Reports chest pain, Reports pedal edema, Denies leg edema, Denies dyspnea and Reports dyspnea on exertion Resp Denies change in phlegm color, Denies chest congestion, Reports cough, Reports pain on inspiration, Reports pain with cough, Denies dyspnea, Reports dyspnea on exertion and Denies wheezing GI Denies abdominal pain Musc Denies no additional complaints and Reports abnormal gait Skin/Breast Reports erythema and Reports skin swelling Neuro Denies Neuro-related abnormal movements, Reports abnormal gait, Reports memory loss and Reports tremor(s) Psych Reports depression and Reports memory loss Endo Reports fatigue Gerson/Lymph Denies easy bleeding and Denies lymphadenopathy Aller/Immun Denies lip swelling, Denies tongue swelling and Denies wheezing Physical Exam Vital Signs: Last Vital Signs Pulse 89 12/23/23 13:14 BP 128/70 12/23/23 13:14 Pulse Ox 91 L 12/23/23 13:14 Oxygen Delivery Method Room Air 12/23/23 13:14 BMI result Body Mass Index 36.3 Last Vital Signs Temp 98.2 F 04/15/22 15:12 Pulse 97 04/15/22 15:26 Resp 18 04/15/22 15:26 BP 144/69 H 04/15/22 15:12 Pulse Ox 94 04/15/22 15:12 Oxygen Flow Rate 3 04/13/22 08:52 BMI result Body Mass Index 31.3 Const General: alert Neck Neck: Yes normal visual inspection, Yes full ROM and Yes no lymphadenopathy Chest Chest palpation & inspection: normal inspection of the chest Resp Effort & Inspection: normal respiratory effort Auscultation: diminished lung sounds Cardio Rate: regular rate Rhythm: regular rhythm Heart sounds: S1 normal heart sound present and S2 normal heart sound present GI Palpation (GI): Soft to palpation and nontender Auscultation: normal bowel sounds Skin General skin exam: rashes and/or lesions noted Assessment & Plan Assessment & Plan (1) COPD (chronic obstructive pulmonary disease): Code(s): J44.9 - Chronic obstructive pulmonary disease, unspecified Qualifiers: COPD type: emphysema Emphysema type: centrilobular Qualified Code(s): J43.2 - Centrilobular emphysema (2) Chronic respiratory failure: Code(s): J96.10 - Chronic respiratory failure, unspecified whether with hypoxia or hypercapnia Qualifiers: Respiratory failure complication: hypoxia and hypercapnia Qualified Code(s): J96.11 - Chronic respiratory failure with hypoxia; J96.12 - Chronic respiratory failure with hypercapnia (3) Insomnia: Code(s): G47.00 - Insomnia, unspecified Qualifiers: Insomnia type: primary Qualified Code(s): F51.01 - Primary insomnia (4) Pulmonary nodule: Code(s): R91.1 - Solitary pulmonary nodule (5) Rib fractures: Code(s): S22.49XA - Multiple fractures of ribs, unspecified side, initial encounter for closed fracture Qualifiers: Encounter type: sequela Fracture type: closed Laterality: left Qualified Code(s): S22.42XS - Multiple fractures of ribs, left side, sequela Plan continue nighttime noninvasive ventilator use. Current setting seem to be appropriate, AVAPSE while sleeping Bloodwork, venous gas continue respiratory therapy continue oxygen at 3 liters/minute via nasal cannula Increase exercise activity weight management copression stocking diuresis as tolerated Will arrange PFTs and pulmonary rehab during her next follow up, once she is at the skilled nursing Will need a f/u CT chest in 1 yr F/U 3 months Coding Level of Care Code Est Pt Level 5 (33254) Diagnoses Centrilobular emphysema J43.2 COPD type: emphysema Emphysema type: centrilobular Chronic respiratory failure with hypoxia and hypercapnia J96.11; J96.12 Respiratory failure complication: hypoxia and hypercapnia Primary insomnia F51.01 Insomnia type: primary Pulmonary nodule R91.1 Closed fracture of multiple ribs of left side, sequela S22.42XS Encounter type: sequela Fracture type: closed Laterality: left Time Spent (min) 40
== END 2023-12-23 13:50 | disposition home or self-care (01) ==
PROVIDERS: PCP Family Medicine Geriatric Medicine; Visit Provider Hospitalist
DX: J43.2 Centrilobular emphysema (principal); J96.11 Chronic respiratory failure with hypoxia; J96.12 Chronic respiratory failure with hypercapnia; F51.01 Primary insomnia; R91.1 Solitary pulmonary nodule; S22.42XS Multiple fractures of ribs, left side, sequela
CPT/HCPCS: 99215

== ENCOUNTER 2024-02-21 13:54 | Outpatient (REF) | payer MEDICARE, MEDICAID, SELFPAY ==
[2024-02-21 14:46] LABS: MANUAL DIFF FLAG NO
[2024-02-21 14:51] LABS: Venous Blood Gas Refer to POC result
[2024-02-21 15:43] LABS: Basophils Absolute Auto 0.1 X10*3/uL (0.0-0.2); Basophils Percent Auto 0.9 % (0-2); Eosinophils Percent Auto 0.5 % (0-4); Hematocrit 38.2 % (37.0-47.0); Hemoglobin 11.9 g/dl (12.0-16.0); Imm Gran Abs Auto 0.04 X10*3/uL (0.00-0.03); Imm Gran Pct Auto 0.5 % (0.0-0.4); Lymphocytes Absolute Auto 0.5 X10*3/uL (1.2-4.9); Lymphocytes Percent Auto 6.5 % (20-40); Mean Corpuscular HGB Conc 31.2 g/dl (31.0-35.0); Mean Corpuscular Hemoglobin 27.8 pg (27.0-33.0); Mean Corpuscular Volume 89.3 fL (80.0-98.0); Mean Platelet Volume 9.4 fL (9.4-12.3); Monocytes Absolute Auto 0.3 X10*3/uL (0.1-1.2); Monocytes Percent Auto 3.4 % (2-11); Neutrophils Absolute Auto 7.2 x10*3/uL (2.0-8.3); Neutrophils Percent Auto 88.2 % (45-73); Platelet Count 526 X10*3/uL (160-400); Red Blood Count 4.28 X10*6/uL (4.20-5.50); Red Cell Distribution Width 14.6 % (11.0-16.0); White Blood Count 8.1 X10*3/uL (4.8-10.8)
[2024-02-21 15:52] LABS: Anion Gap 14 (12-20); Blood Urea Nitrogen 16 mg/dL (9-16); Calcium 9.5 mg/dL (8.4-10.2); Carbon Dioxide 32 mmol/L (22-29); Chloride 98 mmol/L (96-108); Estimated Glomerular Filt Rate 48; Glucose Random 113 mg/dL (60-115); Potassium 4.4 mmol/L (3.3-5.1); Sodium 140 mmol/L (135-145)
[2024-02-21 16:21] LABS: Erythrocyte Sedimentation Rate 14 MM/HR (0-20)
[2024-02-22 07:54] LABS: VBG Base Excess 10.6 mmol/L; VBG HCO3 38 mmol/L (22-26); VBG pCO2 64 mmHg; VBG pH 7.37 (7.32-7.43); VBG pO2 49 mmHg
[2024-02-27 07:45] LABS: Theophylline < 0.8
== END 2024-02-21 13:55 | disposition home or self-care (01) ==
LOC: HO.LAB 13:54
PROVIDERS: PCP Family Medicine Geriatric Medicine; Visit Provider Hospitalist
DX: J43.2 Centrilobular emphysema (principal); J96.12 Chronic respiratory failure with hypercapnia; J96.11 Chronic respiratory failure with hypoxia; G47.00 Insomnia, unspecified; F51.01 Primary insomnia; R91.1 Solitary pulmonary nodule; Z79.899 Other long term (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 therapy
CPT/HCPCS: 36415; 80048; 80198; 82803; 85025; 85652; 99212

== ENCOUNTER 2024-02-21 13:54 | Outpatient (AMB) | payer MEDICARE, MEDICAID, SELFPAY ==
--- NOTE | 2024-02-21 13:58 | A.OFFVIS_ITS ---
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 She 1st did require a tracheostomy in the past and she had a prolonged hospitalization which she was able to be decannulated. She was then placed on noninvasive ventilation. The patient has been inconsistent with the usage. In January of this year the patient was admitted to the hospital with acute on chronic hypercarbic respiratory failure where her pCO2 was about 118 mmHg.. The patient was placed on noninvasive ventilation and her pH normalize and her average pCO2 was between 60-70. She was discharged to use her trilogy at home. At home she is still st ruggling with the noninvasive ventilator. She has a hard time getting used to it. Her DME company, [employer] will be performing overnight oximetry with an end- tidal CO2 to measure her see you to into appropriately adjust her noninvasive ventilator. She also has made mentioning that she has been more short of breath and she has had more hypoxia. In the office we did perform a 6 minutes walk test and she did require 2 L nasal cannula to maintain her pulse ox above 90%. Therefore, she will be using 3 L instead of to with activity and also with sleep. 04/15/2023 the patient is here for pulmon renetta follow-up visit. She still residing at the [facility]. She is using her trilogy noninvasive ventilator every night. However, she has been using more recently because she ended up in the hospital. She was having chest pressure sensation and dizziness. During the hospitalization at [facility] the patient states that she had an ABG done demonstrating a pCO2 58 and per report was okay. Therefore, will hold off on doing an ABG today. The patient has been fairly relatively well from a respiratory status. She does complaint of heaviness of the chest. On examination she is very diminished. Therefore likely has significant air trapping hyperinflation them every resulting in some chest pressure sensation. I did recommend she start using the trilogy with a sip and puff during the da ytime to help her with the air trapping. The patient has also gained weight and that is also going to contribute to additional respiratory symptoms. The patient needs to start working on weight management with the help of the services provided. The patient is using her diuretics with good effect. No significant edema at this time. It is not clear if she is using the theophylline. She has been on multiple medications and has got to multiple institutions so therefore it is hard to know if those removed and if it was stopped for particular reason. We should recheck her theophylline levels if she is on theophylline. Otherwise restart the theophylline if she is off it and then recheck levels. She should stay within the low therapeutic range to help her with her severe COPD. Patient is using her oxygen at 3 L continues with good effect. Again, I reached out to the [employer], [employer], to rete she had uses sip and puff device that she can use during the daytime 06/17/2023 the patient is here for pulmonary follow-up visit. The patient has been doing well. She is looking now to move to a senior living. in the meantime she is using her noninvasive ventilator. The noninvasive ventilator has been affecting beneficial. We did have her undergo a venous blood gas in appears that her pH is stable. She understands that if she does move to a senior living she went to find a way to make sure that she continues use her noninvasive ventilator as prescribed. She continues on respiratory therapy. She continues oxygen supplementation at 3 L could would response. 09/20/2023 the patient has a telehealth visit today. Unfortunately she could not make it in from her residence. She has been more depressed lately. She has recently found out that she lost the services from her [facility]. There been with her for many years. In addition to that the patient has not been using her Trelegy ventilator. She is try to find out how long she can go without it. She was wondering if she can have blood work to see how well her CO2 is while she is not using it. However, I encouraged her to use it since we know that her baseline CO2 is already elevated and by using the ventilator she has better reserved in case she develops an exacerbation or an acute illness. The patient will start using her ventilator at nighttime. I did put him for blood work and she can always have the blood work done here or she can find out another means of doing a. But getting a blood gas will be difficult to do otherwise. The patient did recently have a respiratory illness with a virus. Was not COVID. She was not giving any prednisone or antibiotics. Her cough is not too bad. If the cough worsens with worsening congestion then using a antibiotic to minimize on the postviral bacterial infections would be reasonable. 12/23/2023 the patient is here for a pulm onary follow-up visit. Since we last spoke the patient did have a fall on her halfway. She fractured multiple ribs and was admitted to [facility] with acute on chronic hypercarbic respiratory failure. She was placed on BiPAP and was able to stabilize. She did not require invasive ventilation. The patient had not been using her noninvasive ventilator at the halfway. This is unfortunate. She understands the with her condition she relies on this therapy. The patient has been using now regularly since she was discharged from the hospital. She is looking to be placed in a senior living. Therefore, she is making the arrangements. We did have her undergo a venous blood gas today and her acid- base status is stable and pCO2 is back to her baseline. Her bicarbonate always will be elevated to try to compensate for the hypercarbia and right now is at 37. she does continue to use her respiratory therapy as prescribed. She is also using oxygen continuously throughout the day with good effect. Once the patient is out of the halfway to a senior living will see about getting pulmonary function studies and starting outpatient pulmonary rehabilitation. Also to note while she was at [facility] she did have a CT scan of the chest that was personally by me. She had multiple rib fractures on the left 1 which was displaced. Also has small subcentimeter pulmonary nodule that will follow-up in a year's time. 02/21/2024 the patient is here for pulmonary follow-up visit. The patient overall has been doing well. She did move out of the halfway in currently in a senior living. She is getting a lot of support. She is taking all her medications. Although, the theophylline 400 mg is not available. I will try sending her a different does see that was available and also will check theophylline levels. The patient has been using her noninvasive ventilator at nighttime. The therapy has been affecting beneficial. We did have her get blood work and it appears that her bicarb is down to 32 which is very encouraging. The patient also has been using her oxygen at 3 L continues will keep a go above 88%. The patient is able to increase it to 4 L if her oxygen is dropping below 88%. Will go ahead and request pulmonary function studies and plan for pulmonary rehabilitation at this time. Will follow-up in 3 months or sooner if any new issues arise. [facility] Medical History (Updated 12/25/23 @ 19:34 by Caden Acharya MD) Rib fractures Pulmonary nodule Tubular adenoma of colon (~2006) Osteopenia (~2012) Bronchopneumonia Chest pain Chronic respiratory alkalosis ILD (interstitial lung disease) CO2 retention Acute on chronic respiratory failure with hypoxia and hypercapnia Bipolar depression Eczema Limb swelling Insomnia Bronchitis Vasomotor rhinitis COPD (chronic obstructive pulmonary disease) Chronic respiratory failure Fall Acute metabolic encephalopathy Acute and chronic respiratory failure with hypercapnia Surgical History History of carpal tunnel surgery (~2000) History of ventral hernia repair (~2003) History of left inguinal hernia repair (~1995) History of tracheostomy (~2016) History of cataract surgery (~2018) History of colonoscopy Family History Other Hypertension Social History Household Members: None Housing: Apartment Housing Other:: person comes to do housework. Are you a primary daycare assistant to a significant other at home: No Do you presently have visiting nurse or other home services: Yes Alcohol intake: unknown Patient Tobacco Use Status: Former Tobacco user Quit Date: 2018 Tobacco use type: Cigarette Years Smoked: 20+ years e-Cigarette/Vaping Use: Never Used Second Hand Smoke Exposure: No Advance Directives Date on File: 11/30/21 service: No Current occupational status: disabled Review of Systems Const Reports fatigue, Denies night sweats and Reports weight gain ENT Denies change in voice, Denies lip swelling, Denies mouth pain, Reports nasal congestion, Reports nasal discharge and Denies tongue swelling Card Denies chest pain, Reports pedal edema, Denies leg edema, Denies dyspnea and Reports dyspnea on exertion Resp Denies change in phlegm color, Denies chest congestion, Reports cough, Denies dyspnea, Reports dyspnea on exertion and Reports wheezing GI Denies abdominal pain Musc Denies no additional complaints and Reports abnormal gait Skin/Breast Reports erythema and Reports skin swelling Neuro Denies Neuro-related abnormal movements, Reports abnormal gait, Reports memory loss and Reports tremor(s) Psych Reports depression and Reports memory loss Endo Reports fatigue Gerson/Lymph Denies easy bleeding and Denies lymphadenopathy Aller/Immun Denies lip swelling, Denies tongue swelling and Reports wheezing Physical Exam Vital Signs: Last Vital Signs Pulse 77 02/21/24 13:59 Pulse Ox 90 L 02/21/24 13:59 Oxygen Delivery Method Room Air 02/21/24 13:59 BMI result Body Mass Index 36.3 Last Vital Signs Temp 98.2 F 04/15/22 15:12 Pulse 97 04/15/22 15:26 Resp 18 04/15/22 15:26 BP 144/69 H 04/15/22 15:12 Pulse Ox 94 04/15/22 15:12 Oxygen Flow Rate 3 04/13/22 08:52 BMI result Body Mass Index 31.3 Const General: alert Neck Neck: Yes normal visual inspection, Yes full ROM and Yes no lymphadenopathy Chest Chest palpation & inspection: normal inspection of the chest Resp Effort & Inspection: normal respiratory effort Auscultation: diminished lung sounds Cardio Rate: regular rate Rhythm: regular rhythm Heart sounds: S1 normal heart sound present and S2 normal heart sound present GI Palpation (GI): Soft to palpation and nontender Auscultation: normal bowel sounds Skin General skin exam: rashes and/or lesions noted Assessment & Plan Assessment & Plan (1) COPD (chronic obstructive pulmonary disease): Code(s): J44.9 - Chronic obstructive pulmonary disease, unspecified Qualifiers: COPD type: emphysema Emphysema type: centrilobular Qualified Code(s): J43.2 - Centrilobular emphysema (2) Chronic respiratory failure: Code(s): J96.10 - Chronic respiratory failure, unspecified whether with hypoxia or hypercapnia Qualifiers: Respiratory failure complication: hypoxia and hypercapnia Qualified Code(s): J96.11 - Chronic respiratory failure with hypoxia; J96.12 - Chronic respiratory failure with hypercapnia (3) Insomnia: Code(s): G47.00 - Insomnia, unspecified Qualifiers: Insomnia type: primary Qualified Code(s): F51.01 - Primary insomnia (4) Pulmonary nodule: Code(s): R91.1 - Solitary pulmonary nodule Plan continue nighttime noninvasive ventilator use. Current setting seem to be appropriate, AVAPSE while sleeping Bloodwork, venous gas continue respiratory therapy continue oxygen at 3 liters/minute via nasal cannula to keep pox >88%. It is ok to increase oxygen to 4L/min if desaturates weight management copression stocking diuresis as tolerated PFTs start pulmonary rehab Will need a f/u CT chest, will review during her next vist F/U 3 months Orders: Orders Complete Blood Count Auto Diff Today J44.9 - Chronic obstructive pulmonary disease, unspecified PFT pulmonary function test Today J44.9 - Chronic obstructive pulmonary disease, unspecified Pulmonary Rehab Today J44.9 - Chronic obstructive pulmonary disease, unspecified Venous Blood Gas Today J44.9 - Chronic obstructive pulmonary disease, unspecified Basic Metabolic Panel Today J44.9 - Chronic obstructive pulmonary disease, unspecified Erythrocyte Sedimentation Rate Today J44.9 - Chronic obstructive pulmonary disease, unspecified Theophylline Today J44.9 - Chronic obstructive pulmonary disease, unspecified Medications: New theophylline ER 200 mg PO Q12H 30 days 60 tabs 11RF Coding Level of Care Code Est Pt Level 4 (15569) Diagnoses Centrilobular emphysema J43.2 COPD type: emphysema Emphysema type: centrilobular Chronic respiratory failure with hypoxia and hypercapnia J96.11; J96.12 Respiratory failure complication: hypoxia and hypercapnia Primary insomnia F51.01 Insomnia type: primary Pulmonary nodule R91.1 Time Spent (min) 17
[2024-02-21 13:59] VITALS: PULSE 77; O2SAT 90; BMI 36.3
== END 2024-02-21 14:15 | disposition home or self-care (01) ==
PROVIDERS: PCP Family Medicine Geriatric Medicine; Visit Provider Hospitalist
DX: J43.2 Centrilobular emphysema (principal); J96.11 Chronic respiratory failure with hypoxia; J96.12 Chronic respiratory failure with hypercapnia; F51.01 Primary insomnia; R91.1 Solitary pulmonary nodule
CPT/HCPCS: 99214

== ENCOUNTER 2024-02-29 14:08 | Outpatient (REF) | payer MEDICARE, MEDICAID, SELFPAY ==
[2024-02-29 10:33] VITALS: PULSE 93; RESP 16; O2SAT 89
--- NOTE | 2024-02-29 15:45 | PFT_ITS ---
Indication: COPD Spirometry [FEV1 to FVC 37%; FEV1 0.79 L; FVC 2.15 L. no significant response to bronchodilators noted. Maximum voluntary ventilation 30% predicted] Lung Volumes [Total lung capacity 102% predicted; residual volume 149% predicted] Diffusion Capacity [DLCO 36% predicted] Comparisons [None] Interpretation [There has an obstructive ventilatory defect consistent with severe COPD. No significant response to bronchodilators noted. Significant decrease in the maximum voluntary ventilation secondary to likely deconditioning. Lung volumes with significant air trapping due to the COPD. The patient also has severe diffusion impairment likely secondary to emphysematous changes in order parenchymal lung condition should be considered. Clinical correlation warranted.] MTDD
== END 2024-02-29 14:09 | disposition home or self-care (01) ==
LOC: HO.RESP 14:08
PROVIDERS: PCP Family Medicine Geriatric Medicine; Visit Provider Hospitalist
DX: J44.9 Chronic obstructive pulmonary disease, unspecified (principal)
CPT/HCPCS: 94010; 94640; 94727; 94729

== ENCOUNTER → 2024-02-29 15:45 | Outpatient (BNV) | payer MEDICARE, MEDICAID, SELFPAY | PROVIDERS: PCP Family Medicine Geriatric Medicine; Visit Provider Hospitalist | DX: J44.9 Chronic obstructive pulmonary disease, unspecified (principal) | CPT/HCPCS: 94060; 94727; 94729 ==

== ENCOUNTER 2024-04-05 15:01 | Outpatient (REF) | payer MEDICARE, MEDICAID, SELFPAY ==
[2024-04-05 15:22] LABS: MANUAL DIFF FLAG NO
[2024-04-05 15:32] LABS: Basophils Absolute Auto 0.1 X10*3/uL (0.0-0.2); Basophils Percent Auto 0.9 % (0-2); Eosinophils Percent Auto 0.5 % (0-4); Hematocrit 37.9 % (37.0-47.0); Hemoglobin 11.8 g/dl (12.0-16.0); Imm Gran Abs Auto 0.06 X10*3/uL (0.00-0.03); Imm Gran Pct Auto 0.8 % (0.0-0.4); Lymphocytes Absolute Auto 0.6 X10*3/uL (1.2-4.9); Lymphocytes Percent Auto 7.6 % (20-40); Mean Corpuscular HGB Conc 31.1 g/dl (31.0-35.0); Mean Corpuscular Hemoglobin 28.2 pg (27.0-33.0); Mean Corpuscular Volume 90.7 fL (80.0-98.0); Mean Platelet Volume 9.3 fL (9.4-12.3); Monocytes Absolute Auto 0.5 X10*3/uL (0.1-1.2); Neutrophils Absolute Auto 6.6 x10*3/uL (2.0-8.3); Neutrophils Percent Auto 84.2 % (45-73); Platelet Count 507 X10*3/uL (160-400); Red Blood Count 4.18 X10*6/uL (4.20-5.50); Red Cell Distribution Width 16.3 % (11.0-16.0); White Blood Count 7.9 X10*3/uL (4.8-10.8)
[2024-04-05 15:36] LABS: VBG Base Excess 17.8 mmol/L; VBG HCO3 45 mmol/L (22-26); VBG pCO2 68 mmHg; VBG pH 7.43 (7.32-7.43); VBG pO2 50 mmHg
[2024-04-05 16:39] LABS: Anion Gap 14 (12-20); Blood Urea Nitrogen 12 mg/dL (9-16); Calcium 9.6 mg/dL (8.4-10.2); Carbon Dioxide 39 mmol/L (22-29); Chloride 93 mmol/L (96-108); Estimated Glomerular Filt Rate 58; Glucose Random 116 mg/dL (60-115); Potassium 4.2 mmol/L (3.3-5.1); Sodium 142 mmol/L (135-145)
[2024-04-06 01:05] LABS: Venous Blood Gas Refer to POC result
== END 2024-04-05 15:02 | disposition home or self-care (01) ==
LOC: HO.LAB 15:01
PROVIDERS: Visit Provider Hospitalist
DX: J96.90 Respiratory failure, unspecified, unspecified whether with hypoxia or hypercapnia (principal)
CPT/HCPCS: 36415; 80048; 82803; 85025

== ENCOUNTER 2024-05-17 10:59 | Outpatient (AMB) | payer MEDICARE, MEDICAID, SELFPAY ==
[2024-05-17 13:10] VITALS: PULSE 93; O2SAT 93; BMI 36.5
--- NOTE | 2024-05-17 13:10 | A.OFFVIS_ITS ---
Vital Signs 05/17/24 13:10 Height 5 ft 2 in Weight 199 lb 8.293 oz BMI 36.5 Pulse 93 Pulse Source Pulse Oximeter Pulse Oximetry (%) 93 Oxygen Delivery Method Nasal Cannula Oxygen Flow Rate 6 Intake Visit Reasons: 6 min walk Allergies codeine [Codeine] Allergy (Intermediate, Verified 05/17/24 13:11) RESTLESS/RASH haloperidol [Haldol] Allergy (Intermediate, Verified 05/17/24 13:11) Palpitations Sulfa (Sulfonamide Antibiotics) Allergy (Intermediate, Verified 05/17/24 13:11) HIVES Medication List - Last Reconciled 05/17/24 by Marga Ruffin LPN acetaminophen 1,000 mg PO TID PRN albuterol sulfate 90 mcg/actuation (Proventil HFA) 2 puffs inhalation QID PRN albuterol sulfate mg inhalation alendronate (Fosamax) 70 mg PO SA aripiprazole 15 mg PO DAILY aspirin 81 mg PO DAILY baclofen 10 mg PO TID cholecalciferol (vitamin D3) (Vitamin D3) 50 mcg PO DAILY docusate sodium 100 mg PO DAILY PRN fluticasone furoate-vilanterol 200-25 mcg/dose (Breo Ellipta) 1 inh inhalation DAILY 30 days fluticasone propionate 50 mcg/actuation 1 spray intranasal BID furosemide 20 mg PO BID gabapentin mg PO lamotrigine 300 mg PO BEDTIME lamotrigine 200 mg PO DAILY magnesium oxide 400 mg PO BID metoprolol succinate ER 50 mg PO DAILY mirtazapine 15 mg PO BEDTIME montelukast 10 mg PO BEDTIME nebulizers As directed omega-3 fatty acids-fish oil 300-500 mg (Fish Oil) caps PO omeprazole 20 mg PO DAILY Oxygen Home Use As directed prednisone 10 mg PO DAILY semaglutide (Ozempic) mg subcut sennosides (Senokot) 8.6 mg PO BEDTIME theophylline ER 200 mg PO Q12H 30 days theophylline ER mg PO umeclidinium 62.5 mcg/actuation (Incruse Ellipta) 1 inh inhalation DAILY 30 days vilazodone 40 mg PO DAILY [facility] Medical History (Updated 12/25/23 @ 19:34 by Caden Acharya MD) Rib fractures Pulmonary nodule Tubular adenoma of colon (~2006) Osteopenia (~2012) Bronchopneumonia Chest pain Chronic respiratory alkalosis ILD (interstitial lung disease) CO2 retention Acute on chronic respiratory failure with hypoxia and hypercapnia Bipolar depression Eczema Limb swelling Insomnia Bronchitis Vasomotor rhinitis COPD (chronic obstructive pulmonary disease) Chronic respiratory failure Fall Acute metabolic encephalopathy Acute and chronic respiratory failure with hypercapnia Surgical History History of carpal tunnel surgery (~2000) History of ventral hernia repair (~2003) History of left inguinal hernia repair (~1995) History of tracheostomy (~2016) History of cataract surgery (~2018) History of colonoscopy Family History Other Hypertension Social History Household Members: None Housing: Apartment Housing Other:: person comes to do housework. Are you a primary behavioral health care coordinator to a significant other at home: No Do you presently have visiting nurse or other home services: Yes Alcohol intake: unknown Patient Tobacco Use Status: Former Tobacco user Tobacco use type: Cigarette Years Smoked: 20+ years e-Cigarette/Vaping Use: Never Used Second Hand Smoke Exposure: No Advance Directives Date on File: 11/30/21 service: No Current occupational status: disabled Physical Exam Vital Signs: Last Vital Signs Pulse 93 05/17/24 13:10 Pulse Ox 93 05/17/24 13:10 Oxygen Delivery Method Nasal Cannula 05/17/24 13:10 Oxygen Flow Rate 6 05/17/24 13:10 BMI result Body Mass Index 36.5 Office Procedures 6 Minute Walk Time:: 11:10 SPO2 % at rest: 83 Pulse at rest: 93 Performance Observations:: Ronans SPO2 at rest on room air was 83%, O2 started at 2 lpm and her SPO2 recovered to 92%. 6 Minute Walk (with oxygen) Time:: 11:15 SPO2 % at rest:: 92 Pulse at rest:: 87 SPO2 % during exercise:: 87 Pulse during exercise:: 98 SPO2 % after exercise: 93 Pulse after exercise:: 77 Distance in yards walked:: 120 Saba Score:: 6 Supplemental Oxygen: 2 lpm Performance Observations: Lluvia walked on level ground with the assistance of a walker, her SPO2 dropped to 87% after walking 15 yards, SPO2 increased to 3 lpm and her SPO2 recovered to 92%. With 15 more yards of ambulation her SPO2 dropped to 88%. O2 increased to 4 lpm and her SPO2 recovered to 93%. She maintained her SPO2 92-93% on O2 at 4 lpm for the remainder of the walk. [id number] - 6 Minute Walk Assessment & Plan Assessment & Plan (1) COPD (chronic obstructive pulmonary disease): Code(s): J44.9 - Chronic obstructive pulmonary disease, unspecified Category: Medical Qualifiers: COPD type: emphysema Emphysema type: centrilobular Qualified Code(s): J43.2 - Centrilobular emphysema Plan oxygen 2L at rest and 4l with activity Orders: Orders AMB 6 minute walk 05/17/24 J43.2 - Centrilobular emphysema Coding Level of Care Code Established Pt Est Pt Level 1 (82768) Patient Type Established Diagnoses Centrilobular emphysema J43.2 COPD type: emphysema Emphysema type: centrilobular CPT Codes Coding ([id number]) Comment NURSE VISIT ONLY
[2024-05-17 13:18] VITALS: PULSE 87; PULSE 93; O2SAT 83; O2SAT 92
== END 2024-05-17 13:28 | disposition home or self-care (01) ==
PROVIDERS: PCP Internal Medicine Rheumatology; Visit Provider Hospitalist
DX: J44.9 Chronic obstructive pulmonary disease, unspecified (principal)
CPT/HCPCS: 94618

== ENCOUNTER → 2024-05-17 10:59 | Outpatient (BNVA) | payer MEDICARE, MEDICAID, SELFPAY | PROVIDERS: PCP Internal Medicine Rheumatology; Visit Provider Hospitalist | DX: J44.9 Chronic obstructive pulmonary disease, unspecified (principal); J43.2 Centrilobular emphysema; Z87.891 Personal history of nicotine dependence | CPT/HCPCS: 94618; 99211 ==

== ENCOUNTER 2024-05-24 14:15 | Outpatient (AMB) | payer MEDICARE, MEDICAID, SELFPAY ==
[2024-05-24 14:43] VITALS: PULSE 76; O2SAT 89; BMI 36.5
--- NOTE | 2024-05-24 14:43 | A.OFFVIS_ITS ---
Vital Signs 05/24/24 14:43 Height 5 ft 2 in Weight 199 lb 8.293 oz BMI 36.5 Pulse 76 Pulse Source Pulse Oximeter Pulse Oximetry (%) 89 L Oxygen Delivery Method Room Air Comment 2 Liters Oxygen([employer]) Intake Visit Reasons: COPD Career Information Specialist Required: No Allergies codeine [Codeine] Allergy (Intermediate, Verified 05/24/24 14:46) RESTLESS/RASH haloperidol [Haldol] Allergy (Intermediate, Verified 05/24/24 14:46) Palpitations Sulfa (Sulfonamide Antibiotics) Allergy (Intermediate, Verified 05/24/24 14:46) HIVES HPI Comments Details: The patient is a 68-year-old woman with known history of COPD and chronic hypoxic and hypercarbic respiratory failure. She 1st did require a tracheostomy in the past and she had a prolonged hospitalization which she was able to be decannulated. She was then placed on noninvasive ventilation. The patient has been inconsistent with the usage. In January of this year the patient was admitted to the hospital with acute on chronic hypercarbic respiratory failure where her pCO2 was about 118 mmHg.. The patient was placed on noninvasive ventilation and her pH normalize and her average pCO2 was between 60-70. She w as discharged to use her trilogy at home. At home she is still struggling with the noninvasive ventilator. She has a hard time getting used to it. Her DME company, [employer] will be performing overnight oximetry with an end-tidal CO2 to measure her see you to into appropriately adjust her noninvasive ventilator. She also has made mentioning that she has been more short of breath and she has had more hypoxia. In the office we did perform a 6 minutes walk test and she did require 2 L nasal cannula to maintain her pulse ox above 90%. Therefore, she will be using 3 L instead of to with activity and also with sleep. 04/15/2023 the patient is here for pulmonary follow-up visit. She still residing at the [facility]. She is using her trilogy noninvasive ventilator every night. However, she has been using more recently because she ended up in the hospital. She was having chest pressure sensation and dizziness. During the hospitalization at [facility] the patient states that she had an ABG done demonstrating a pCO2 58 and per report was okay. Therefore, will hold off on doing an ABG today. The patient has been fairly relatively well from a respiratory status. She does complaint of heaviness of the chest. On examination she is very diminished. Therefore likely has significant air trapping hyperinflation them every resulting in some chest pressure sensation. I did recommend she start using the trilogy with a sip and puff during the daytime to help her with the air trapping. The patient has also gained weight and that is also going to contribute to additional respiratory symptoms. The patient needs to start working on weight management with the help of the services provided. The patient is using her diuretics with good effect. No significant edema at this time. It is not clear if she is using the theophylline. She has been on multiple medications and has got to multiple institutions so therefore it is hard to know if those removed and if it was stopped for particular reason. We should recheck her theophylline levels if she is on theophylline. Otherwise restart the theophylline if she is off it and then recheck levels. She should stay within the low therapeutic range to help her with her severe COPD. Patient is using her oxygen at 3 L continues with good effect. Again, I reached out to the [employer], [employer], to rete she had uses sip and puff device that she can use during the daytime 06/17/2023 the patient is here for pulmonary follow-up visit. The patient has been doing well. She is looking now to move to a intermediate. in the meantime she is using her noninvasive ventilator. The noninvasive ventilator has been affecting beneficial. We did have her undergo a venous blood gas in appears that her pH is stable. She understands that if she does move to a intermediate she went to find a way to make sure that she continues use her noninvasive ventilator as prescribed. She continues on respiratory therapy. She continues oxygen supplementation at 3 L could would response. 09/20/2023 the patient has a telehealth visit today. Unfortunately she could not make it in from her residence. She has been more depressed lately. She has recently found out that she lost the services from her [facility]. There been with her for many years. In addition to that the patient has not been using her Trelegy ventilator. She is try to find out how long she can go without it. She was wondering if she can have blood work to see how well her CO2 is while she is not using it. However, I encouraged her to use it since we know that her baseline CO2 is already elevated and by using the ventilator she has better reserved in case she develops an exacerbation or an acute illness. The patient will start using her ventilator at nighttime. I did put him for blood work and she can always have the blood work done here or she can find out another means of doing a. But getting a blood gas will be difficult to do otherwise. The patient did recently have a respiratory illness with a virus. Was not COVID. She was not giving any prednisone or antibiotics. Her cough is not too bad. If the cough worsens with worsening congestion then using a antibiotic to minimize on the postviral bacterial infections would be reasonable. 12/23/2023 the patient is here for a pulmonary follow-up visit. Since we last spoke the patient did have a fall on her skilled nursing. She fractured multiple ribs and was admitted to [facility] with acute on chronic hypercarbic respiratory failure. She was placed on BiPAP and was able to stabilize. She did not require invasive ventilation. The patient had not been using her noninvasive ventilator at the skilled nursing. This is unfortunate. She understands the with her condition she relies on this therapy. The patient has been using now regularly since she was discharged from the hospital. She is looking to be placed in a intermediate. Therefore, she is making the arrangements. We did have her undergo a venous blood gas today and her acid- base status is stable and pCO2 is back to her baseline. Her bicarbonate always will be elevated to try to compensate for the hypercarbia and right now is at 37. she does continue to use her respiratory therapy as prescribed. She is also using oxygen continuously throughout the day with good effect. Once the patient is out of the skilled nursing to a intermediate will see about getting pulmonary function studies and starting outpatient pulmonary rehabilitation. Also to note while she was at [facility] she did have a CT scan of the chest that was personally by me. She had multiple rib fractures on the left 1 which was displaced. Also has small subcentimeter pulmonary nodule that will follow-up in a year's time. 02/21/2024 the patient is here for pulmonary follow-up visit. The patient overall has been doing well. She did move out of the skilled nursing in currently in a intermediate. She is getting a lot of support. She is taking all her m edications. Although, the theophylline 400 mg is not available. I will try sending her a different does see that was available and also will check theophylline levels. The patient has been using her noninvasive ventilator at nighttime. The therapy has been affecting beneficial. We did have her get blood work and it appears that her bicarb is down to 32 which is very encouraging. The patient also has been using her oxygen at 3 L continues will keep a go above 88%. The patient is able to increase it to 4 L if her oxygen is dropping below 88%. Will go ahead and request pulmonary function studies and plan for pulmonary rehabilitation at this time. Will follow-up in 3 months or sooner if any new issues arise. 05/24/2024 the patient is here for a pulmonary follow-up visit. She was re cently at [facility]. There was an issue with her oxygen. Now she is back to her intermediate. the having hard time regulating her oxygen. We did have her come in for 6 minute walk test. The patient needs 6 L of oxygen with activity and at least 2 L at rest. Although typically she needs more than 2 to keep her pulse ox above 90%. We did review her CT scan of the chest that she had while at [facility]. She has extensive emphysema which explains her very labile oxygen requirements. In addition to that she does have some pulmonary nodules that appear to have increased in size primarily in the left hemithorax. She will need a repeat CT scan in the next 3 months. She has minimal reserve. We did look at her previous PFTs demonstrating very severe COPD and severe diffusion impairment. however, the patient has been fairly well although she has had although severe disease. She has been using her noninvasive ventilator at nighttime. At least 6 hours. We did have her go for blood work including a venous gas demonstrating appears due to a baseline 61 mm of Hg. The patient does have some lower extremity edema. She will benefit from additional diuresis. In addition to that she is having increased wheezing chest tightness and cough. Therefore will send her a prednisone taper and also start an antibiotic. This will be to treat her for COPD exacerbation. She has participating in the pulmonary rehabilitation. She has fine the very affecting beneficial. She will continue for now. FOR[facility]LY [facility], [facility] Medical History (Updated 05/24/24 @ 22:56 by Caden Acharya MD) Rib fractures Pulmonary nodule Tubular adenoma of colon (~2006) Osteopenia (~2012) Bronchopneumonia Chest pain Chronic respiratory alkalosis ILD (interstitial lung disease) CO2 retention Acute on chronic respiratory failure with hypoxia and hypercapnia Bipolar depression Eczema Limb swelling Insomnia Bronchitis Vasomotor rhinitis COPD (chronic obstructive pulmonary disease) Chronic respiratory failure Fall Acute metabolic encephalopathy Acute and chronic respiratory failure with hypercapnia Surgical History History of carpal tunnel surgery (~2000) History of ventral hernia repair (~2003) History of left inguinal hernia repair (~1995) History of tracheostomy (~2016) History of cataract surgery (~2018) History of colonoscopy Family History Other Hypertension Social History Household Members: None Housing: Apartment Housing Other:: person comes to do housework. Are you a primary youth career specialist to a significant other at home: No Do you presently have visiting nurse or other home services: Yes Alcohol intake: unknown Patient Tobacco Use Status: Former Tobacco user Tobacco use type: Cigarette Years Smoked: 20+ years e-Cigarette/Vaping Use: Never Used Second Hand Smoke Exposure: No Advance Directives Date on File: 11/30/21 service: No Current occupational status: disabled Review of Systems Const Reports fatigue, Denies night sweats and Reports weight gain ENT Denies change in voice, Denies lip swelling, Denies mouth pain, Reports nasal congestion, Reports nasal discharge and Denies tongue swelling Card Denies chest pain, Reports pedal edema, Denies leg edema, Reports dyspnea and Reports dyspnea on exertion Resp Denies change in phlegm color, Denies chest congestion, Reports cough, Reports dyspnea, Reports dyspnea on exertion and Reports wheezing GI Denies abdominal pain Musc Denies no additional complaints and Reports abnormal gait Skin/Breast Reports erythema and Reports skin swelling Neuro Denies Neuro-related abnormal movements, Reports abnormal gait, Reports memory loss and Reports tremor(s) Psych Reports depression and Reports memory loss Endo Reports fatigue Gerson/Lymph Denies easy bleeding and Denies lymphadenopathy Aller/Immun Denies lip swelling, Denies tongue swelling and Reports wheezing Physical Exam Vital Signs: Last Vital Signs Pulse 76 05/24/24 14:43 Pulse Ox 89 L 05/24/24 14:43 Oxygen Delivery Method Room Air 05/24/24 14:43 BMI result Body Mass Index 36.5 Last Vital Signs Temp 98.2 F 04/15/22 15:12 Pulse 97 04/15/22 15:26 Resp 18 04/15/22 15:26 BP 144/69 H 04/15/22 15:12 Pulse Ox 94 04/15/22 15:12 Oxygen Flow Rate 3 04/13/22 08:52 BMI result Body Mass Index 31.3 Const General: alert Neck Neck: Yes normal visual inspection, Yes full ROM and Yes no lymphadenopathy Chest Chest palpation & inspection: normal inspection of the chest Resp Effort & Inspection: normal respiratory effort and prolonged expiratory phase Auscultation: diminished lung sounds Cardio Rate: regular rate Rhythm: regular rhythm Heart sounds: S1 normal heart sound present and S2 normal heart sound present GI Palpation (GI): Soft to palpation and nontender Auscultation: normal bowel sounds Skin General skin exam: rashes and/or lesions noted Assessment & Plan Assessment & Plan (1) COPD (chronic obstructive pulmonary disease): Code(s): J44.9 - Chronic obstructive pulmonary disease, unspecified Category: Medical Qualifiers: COPD type: emphysema Emphysema type: centrilobular Qualified Code(s): J43.2 - Centrilobular emphysema (2) Chronic respiratory failure: Code(s): J96.10 - Chronic respiratory failure, unspecified whether with hypoxia or hypercapnia Category: Medical Qualifiers: Respiratory failure complication: hypoxia and hypercapnia Qualified Code(s): J96.11 - Chronic respiratory failure with hypoxia; J96.12 - Chronic respiratory failure with hypercapnia (3) Insomnia: Code(s): G47.00 - Insomnia, unspecified Category: Medical Qualifiers: Insomnia type: primary Qualified Code(s): F51.01 - Primary insomnia (4) Pulmonary nodule: Code(s): R91.1 - Solitary pulmonary nodule Category: Medical (5) Respiratory failure: Code(s): J96.90 - Respiratory failure, unspecified, unspecified whether with hypoxia or hypercapnia Category: Medical Qualifiers: Respiratory failure complication: hypoxia and hypercapnia Chronicity: chronic Qualified Code(s): J96.11 - Chronic respiratory failure with hypoxia; J96.12 - Chronic respiratory failure with hypercapnia Plan continue nighttime noninvasive ventilator use. Current setting seem to be appropriate, AVAPSE while sleeping continue Breo start Incruse Bloodwork, venous gas continue respiratory therapy Increase oxygen at 3 liters/minute at rest and 6L/minute with activity weight management Additional lasix 20mg daily x 3 days prednisone taper doxycycline x 10 days continue pulmonary rehab Will need a f/u CT chest in 3 months F/U 3 months Orders: Orders Complete Blood Count Auto Diff Today J96.90 - Respiratory failure, unspecified, unspecified whether with hypoxia or hypercapnia, R91.1 - Solitary pulmonary nodule Basic Metabolic Panel Today J96.90 - Respiratory failure, unspecified, unspecified whether with hypoxia or hypercapnia, R91.1 - Solitary pulmonary nodule Venous Blood Gas Today J96.90 - Respiratory failure, unspecified, unspecified whether with hypoxia or hypercapnia, R91.1 - Solitary pulmonary nodule Erythrocyte Sedimentation Rate Today J96.90 - Respiratory failure, unspecified, unspecified whether with hypoxia or hypercapnia, R91.1 - Solitary pulmonary nodule Medications: New doxycycline hyclate 100 mg PO BID 10 days 20 caps 0RF furosemide (Lasix) 20 mg PO DAILY 3 days 3 tabs 0RF prednisone PO daily; Take 3 tabs daily x 5 days, then 2 tabs daily x 5 days, then 1 tab daily x 5 days 15 days 30 tabs 0RF Refilled umeclidinium 62.5 mcg/actuation (Incruse Ellipta) 1 inh inhalation DAILY 30 days 30 ea 11RF Coding Level of Care Code Est Pt Level 5 (27204) Diagnoses Centrilobular emphysema J43.2 COPD type: emphysema Emphysema type: centrilobular Chronic respiratory failure with hypoxia and hypercapnia J96.11; J96.12 Respiratory failure complication: hypoxia and hypercapnia Primary insomnia F51.01 Insomnia type: primary Pulmonary nodule R91.1 Chronic respiratory failure with hypoxia and hypercapnia J96.11; J96.12 Respiratory failure complication: hypoxia and hypercapnia Chronicity: chronic Time Spent (min) 30
== END 2024-05-24 15:20 | disposition home or self-care (01) ==
PROVIDERS: PCP Family Medicine Geriatric Medicine; Visit Provider Hospitalist
DX: J43.2 Centrilobular emphysema (principal); J96.11 Chronic respiratory failure with hypoxia; J96.12 Chronic respiratory failure with hypercapnia; F51.01 Primary insomnia; R91.1 Solitary pulmonary nodule
CPT/HCPCS: 99214

== ENCOUNTER 2024-05-24 14:15 | Outpatient (REF) | payer MEDICARE, MEDICAID, SELFPAY ==
[2024-05-24 15:45] LABS: MANUAL DIFF FLAG NO
[2024-05-24 15:56] LABS: VBG pH 7.44 (7.32-7.43)
[2024-05-24 15:57] LABS: VBG Base Excess 15.6 mmol/L; VBG HCO3 42 mmol/L (22-26); VBG pCO2 61 mmHg; VBG pO2 89 mmHg; Venous Blood Gas Refer to POC result
[2024-05-24 18:50] LABS: Basophils Percent Auto 0.4 % (0-2); Eosinophils Percent Auto 0.2 % (0-4); Hematocrit 36.8 % (37.0-47.0); Hemoglobin 11.7 g/dl (12.0-16.0); Imm Gran Abs Auto 0.02 X10*3/uL (0.00-0.03); Imm Gran Pct Auto 0.4 % (0.0-0.4); Lymphocytes Absolute Auto 0.7 X10*3/uL (1.2-4.9); Lymphocytes Percent Auto 12.8 % (20-40); Mean Corpuscular HGB Conc 31.8 g/dl (31.0-35.0); Mean Corpuscular Volume 91.3 fL (80.0-98.0); Mean Platelet Volume 9.9 fL (9.4-12.3); Monocytes Absolute Auto 0.6 X10*3/uL (0.1-1.2); Monocytes Percent Auto 11.3 % (2-11); Neutrophils Absolute Auto 3.9 x10*3/uL (2.0-8.3); Neutrophils Percent Auto 74.9 % (45-73); Platelet Count 358 X10*3/uL (160-400); Red Blood Count 4.03 X10*6/uL (4.20-5.50); Red Cell Distribution Width 15.5 % (11.0-16.0); White Blood Count 5.2 X10*3/uL (4.8-10.8)
[2024-05-24 18:51] LABS: Anion Gap 11 (12-20); Blood Urea Nitrogen 18 mg/dL (9-16); Calcium 9.5 mg/dL (8.4-10.2); Carbon Dioxide 37 mmol/L (22-29); Chloride 97 mmol/L (96-108); Estimated Glomerular Filt Rate > 60; Glucose Random 80 mg/dL (60-115); Potassium 3.7 mmol/L (3.3-5.1); Sodium 141 mmol/L (135-145)
[2024-05-24 21:02] LABS: Erythrocyte Sedimentation Rate 20 MM/HR (0-20)
== END 2024-05-24 14:16 | disposition home or self-care (01) ==
LOC: HO.LAB 14:15
PROVIDERS: PCP Family Medicine Geriatric Medicine; Visit Provider Hospitalist
DX: J43.2 Centrilobular emphysema (principal); J96.11 Chronic respiratory failure with hypoxia; J96.12 Chronic respiratory failure with hypercapnia; G47.00 Insomnia, unspecified; F51.01 Primary insomnia; R91.1 Solitary pulmonary nodule; Z99.81 Dependence on supplemental oxygen
CPT/HCPCS: 36415; 80048; 82803; 85025; 85652; 99212

== ENCOUNTER 2024-06-21 11:07 | Inpatient (IN) | payer MEDICARE, MEDICAID, SELFPAY ==
--- NOTE | ~2024-06-21 | XR_ITS ---
EXAMINATION: XR CHEST CLINICAL INFORMATION: Dyspnea and chest pain COMPARISON: March 1722 TECHNIQUE: 2 views of the chest were obtained. FINDINGS: There are pancreas interstitial markings bilaterally with ill-defined left upper lobe nodule. There is scarring/atelectasis at the left lung base. Cardiomediastinal silhouette is unremarkable. XR/XR chest 2V IMPRESSION: No active cardiopulmonary disease. Left upper lobe nodule and left lung base scarring/atelectasis
[2024-06-21 11:08] VITALS: BP 176/68; PULSE 70; RESP 20; TEMP 37.1; O2SAT 94; BMI 35.7
--- NOTE | 2024-06-21 11:08 | ED.GENADULT ---
HPI - General Adult General Chief complaint: Dyspnea Stated complaint: sob Time Seen by Provider: 06/21/24 13:35 Source: patient, RN notes reviewed and old records reviewed Mode of arrival: ambulatory Limitations: no limitations History of Present Illness ED Provider: Russell Nieves PA-C HPI narrative: 68-year-old female with history of severe COPD with chronic hypoxic and hypercapnic respiratory failure on 3 L nasal cannula at rest, 6 L nasal cannula with exertion, q.h.s. trilogy, former smoker (quit 5 years ago), hx tracheostomy 2/2 hypercarbic resp failure s/p decannulation, pulmonary nodules in the left lung (monitored at [facility]) who [facility] for evaluation of worsening shortness of breath over the last 1 week. She is currently in pulmonary rehab on Tuesdays and , today she was unable to perform any of the activities due to shortness of breath. She states she has been having a harder time coughing, her cough feels weak and she is unable to get out any phlegm. She is short of breath with sitting, lying, and with any exertion. She reports pain in her lungs, no chest pain. No fevers or chills. No nausea, vomiting, abdominal pain. She does have some lower extremity edema which is acute for the last month or so. 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 She has been compliant with her trilogy for at least 6 hours at night. She states she has also been needing to use it during the day for her shortness of breath. This is worse than her baseline. complaint: Shortness of breath Onset (ago): day(s) Location: chest Radiation: non-radiation Severity: severe Relieving factors: rest and other (o2) Exacerbating factors: movement Associated symptoms: cough and shortness of breath Treatments prior to arrival: none Related Data Home Medications ?Medication ?Instructions ?Recorded ?Confirmed acetaminophen 500 mg tablet 1,000 mg PO TID PRN Headache 02/09/21 05/17/24 albuterol sulfate 90 mcg/actuation 2 puff inhalation QID PRN 02/09/21 05/17/24 aerosol inhaler (Proventil HFA) Respiratory Distress alendronate 70 mg tablet (Fosamax) 70 mg PO SA 02/09/21 05/17/24 aspirin 81 mg tablet,delayed 81 mg PO DAILY 02/09/21 05/17/24 release cholecalciferol (vitamin D3) 50 50 mcg PO DAILY 02/09/21 05/17/24 mcg (2,000 unit) capsule (Vitamin D3) lamotrigine 150 mg tablet 300 mg PO BEDTIME 02/09/21 05/17/24 lamotrigine 200 mg tablet 200 mg PO DAILY 02/09/21 05/17/24 magnesium oxide 400 mg PO BID 02/09/21 05/17/24 montelukast 10 mg tablet 10 mg PO BEDTIME 02/09/21 05/17/24 mirtazapine 15 mg tablet 15 mg PO BEDTIME 09/10/21 05/17/24 sennosides 8.6 mg tablet (Senokot) 8.6 mg PO BEDTIME 09/10/21 05/17/24 metoprolol succinate 50 mg 50 mg PO DAILY 11/18/21 05/17/24 tablet,extended release 24 hr prednisone 10 mg tablet 10 mg PO DAILY copd 04/13/22 05/17/24 albuterol sulfate 2.5 mg/3 mL mg inhalation 09/20/22 05/17/24 (0.083 %) solution for nebulization aripiprazole 15 mg tablet 15 mg PO DAILY 11/02/22 05/17/24 baclofen 10 mg tablet 10 mg PO TID 11/02/22 05/17/24 omega-3 fatty acids-fish oil 300 cap PO 11/02/22 05/17/24 mg-500 mg capsule (Fish Oil) Oxygen Home Use 04/15/23 05/17/24 fluticasone propionate 50 1 spray intranasal BID 04/15/23 05/17/24 mcg/actuation nasal spray,suspension furosemide 20 mg tablet 20 mg PO BID 04/15/23 05/17/24 nebulizers 04/15/23 05/17/24 semaglutide 0.25 mg or 0.5 mg (2 mg subcut 04/15/23 05/17/24 mg/3 mL) subcutaneous pen injector (Ozempic) vilazodone 40 mg tablet 40 mg PO DAILY 04/15/23 05/17/24 gabapentin 100 mg capsule mg PO 09/20/23 05/17/24 theophylline 400 mg mg PO 09/20/23 05/17/24 tablet,extended release 24 hr pantoprazole 40 mg tablet,delayed 40 mg PO DAILY 06/21/24 release salmeterol 50 mcg/dose blister 1 inh inhalation BID 06/21/24 powder for inhalation (Serevent Diskus) Previous Rx's ?Medication ?Instructions ?Recorded docusate sodium 100 mg capsule 100 mg PO DAILY PRN Constipation 03/03/22 #30 caps theophylline 200 mg 200 mg PO Q12H 30 days #60 tabs 02/21/24 tablet,extended release,12 hr fluticasone furoate 200 1 inh inhalation DAILY 30 days #60 03/19/24 mcg-vilanterol 25 mcg/dose ea inhalation powder (Breo Ellipta) doxycycline hyclate 100 mg capsule 100 mg PO BID 10 days #20 caps 05/24/24 furosemide 20 mg tablet (Lasix) 20 mg PO DAILY 3 days #3 tabs 05/24/24 prednisone 10 mg tablet See Rx Instructions PO DAILY 15 05/24/24 days #30 tabs umeclidinium 62.5 mcg/actuation 1 inh inhalation DAILY 30 days #30 05/24/24 blister powder for inhalation ea (Incruse Ellipta) Allergies Allergy/AdvReac Type Severity Reaction Status Date / Time codeine [Codeine] Allergy Intermediate RESTLESS/RA Verified 06/21/24 11:11 SH haloperidol [Haldol] Allergy Intermediate Palpitation Verified 06/21/24 11:11 s Sulfa (Sulfonamide Allergy Intermediate HIVES Verified 06/21/24 11:11 Antibiotics) Review of Systems Review of Systems: Yes all other systems are reviewed and are negative [facility] Past Medical History Medical History (Updated 06/21/24 @ 15:03 by RAYSHAWN Hanna) Rib fractures Pulmonary nodule Tubular adenoma of colon (~2006) Osteopenia (~2012) Bronchopneumonia Chest pain Chronic respiratory alkalosis ILD (interstitial lung disease) CO2 retention Acute on chronic respiratory failure with hypoxia and hypercapnia Bipolar depression Eczema Limb swelling Insomnia Bronchitis Vasomotor rhinitis COPD (chronic obstructive pulmonary disease) Chronic respiratory failure Fall Acute metabolic encephalopathy Acute and chronic respiratory failure with hypercapnia Surgical History History of carpal tunnel surgery (~2000) History of ventral hernia repair (~2003) History of left inguinal hernia repair (~1995) History of tracheostomy (~2016) History of cataract surgery (~2018) History of colonoscopy Family History Family History Other Hypertension Social History Social History Household Members: None Housing: Apartment Housing Other:: person comes to do housework. Are you a primary career center director to a significant other at home: No Do you presently have visiting nurse or other home services: Yes Alcohol intake: unknown Patient Tobacco Use Status: Former Tobacco user Tobacco use type: Cigarette Years Smoked: 20+ years Smoked in Last 30 Days: No e-Cigarette/Vaping Use: Never Used Second Hand Smoke Exposure: No Use of substances other than those prescribed or required for medical reasons: No Advance Directives: Yes Advance Directives on File: Yes Advance Directives Date on File: 11/30/21 Do you have a plan to hurt others: No Plan service: No Current occupational status: disabled Physical Exam ED Vital Signs: Vital Signs - 24 hr 06/21/24 11:08 06/21/24 14:00 06/21/24 14:30 Temperature 98.7 F 98.3 F Pulse Rate 70 74 70 Respiratory Rate 20 22 H 21 H Blood Pressure 176/68 H 143/62 H Pulse Oximetry 94 96 Oxygen Delivery Method Nasal Cannula Nasal Cannula Oxygen Flow Rate 3 06/21/24 16:00 Temperature 98.3 F Pulse Rate 72 Respiratory Rate 20 Blood Pressure 130/70 Pulse Oximetry 94 Oxygen Delivery Method Nasal Cannula Oxygen Flow Rate 3 BMI result Body Mass Index 35.7 Appearance: Alert. Oriented X3. No acute distress. Head: normocephalic, atraumatic. Eyes: Pupils equal, round and reactive to light. ENT: Pharynx normal. No tonsillar swelling or exudate. Neck: Normal inspection. Neck supple. CVS: Normal heart rate and rhythm. Pulses normal. Respiratory: No respiratory distress at rest, when speaking patient gets slightly dyspneic. She has decreased breath sounds throughout, coarse at the left base. No rhonchi or wheezing. Abdomen: Soft and nontender. +BS x4 Skin: Skin warm and dry. Normal skin color. Normal skin turgor. No rashes. Extremities: trace lower extremity edema. No joint swelling. Neuro/psych: Oriented X 3. No motor deficit. No sensory deficit. CN II-XII intact. Normal speech and cognition. Course Course Course Narrative: This is a rapid medical exam performed by Cassie Burrell NP: Additional HPI, ROS, PE not included below will be deferred to primary provider. Patient is a 68-year-old female with history of COPD, on 3lpm at rest, 6lpm with activity at baseline, chronic respiratory failure presenting to the ED with worsening dyspnea. Also complains of pain with breathing, states it's lung, not heart. Lower extremity edema. Unable to complete rehab activities today due to symptoms. Plan: EKG, labs, CXR Reevaluation(s) Reevaluation #1: Patient up to the bedside commode to urinate, she became more short of breath and felt like she was ?drowning. ? Increased FiO2 for exertion. Time: 14:58 Medications Administered Discontinued Medications Generic Name Dose Route Start Last Admin Trade Name Freq PRN Reason Stop Dose Admin Albuterol Sulfate 7.5 mg/ 0 mg 06/21/24 14:26 06/21/24 14:29 Albuterol/Ipratropium 3 ml INHALE 06/21/24 14:27 10 each ONCE ONE Administration Procedures Procedure Narrative Procedure Narrative: I was asked to assist with IV access. I was able place a 2.5 inch 18 gauge. There was good blood return and the line flushed well. There were no complications Medical Decision Making Medical Decision Making MDM Narrative: 68-year-old female with history of severe COPD with chronic hypoxic and hypercapnic respiratory failure on 3 L nasal cannula at rest, 6 L nasal cannula with exertion, q.h.s. trilogy, former smoker (quit 5 years ago), hx tracheostomy 2/2 hypercarbic resp failure s/p decannulation, pulmonary nodules in the left lung (monitored at [facility]) who presents to the ER [facility] for evaluation of worsening shortness of breath over the last 1 week. Patient saturating well on her baseline 3 L, she has minimal air movement, poor aeration. She is dyspneic with speaking. She has some trace lower extremity edema which she states is worse than usual. She denies any history of heart failure. E.d. bronchodilator protocol ordered. Chest x-ray reviewed, she has some left base scarring and atelectasis along with pulmonary nodules on the left side. No evidence of focal pneumonia. BNP was 169, no history of heart failure and she had a normal echo in 2020. Given her trace peripheral edema, reports of ?drowning will give 20 mg IV Lasix. Will treat for COPD exacerbation with IV steroids, IV doxycycline, DuoNebs. Will admit the patient for further management of COPD exacerbation. Differential Diagnosis Differential Diagnoses: The differential diagnosis associated with the presentation includes COPD exacerbation, CHF exacerbation, interstitial lung disease, lung cancer, pulmonary embolism Admission/Observation Consideration of admission/observation: Escalation of care including admission/observation considered Consult Healthcare Provider Management of the patient was discussed with: Hospitalist Lab Data MDM Lab Attestation statement: I reviewed the patient's lab results. No leukocytosis, normal renal function, chronically elevated carbon dioxide due to hypercarbic respiratory failure 06/21/24 11:38 06/21/24 11:38 Labs: Lab Results 06/21/24 06/21/24 Range/Units 11:38 11:40 WBC 4.8 (4.8-10.8) X10*3/uL RBC 4.04 L (4.20-5.50) X10*6/uL Hgb 12.1 (12.0-16.0) g/dl Hct 37.6 (37.0-47.0) % MCV 93.1 (80.0-98.0) fL MCH 30.0 (27.0-33.0) pg MCHC 32.2 (31.0-35.0) g/dl RDW 14.7 (11.0-16.0) % Plt Count 331 (160-400) X10*3/uL MPV 9.3 L (9.4-12.3) fL Immature Gran % (Auto) 0.4 (0.0-0.4) % Neut % (Auto) 77.6 H (45-73) % Lymph % (Auto) 10.7 L (20-40) % [place] % (Auto) 10.5 (2-11) % Eos % (Auto) 0.2 (0-4) % Baso % (Auto) 0.6 (0-2) % Lymph # (Auto) 0.5 L (1.2-4.9) X10*3/uL [place] # (Auto) 0.5 (0.1-1.2) X10*3/uL Eos # (Auto) 0.0 (0.0-0.4) X10*3/uL Baso # (Auto) 0.0 (0.0-0.2) X10*3/uL Abs Immat Gran (auto) 0.02 (0.00-0.03) X10*3/uL Absolute Neuts (auto) 3.7 (2.0-8.3) x10*3/uL Absolute Nucleated RBC 0.000 (0.0-0.012) X10*3/uL Nucleated RBC % (auto) 0.0 (0.0-0.2) /100WBC PT 12.2 (11.1-13.3) SEC INR 1.0 (0.9-1.1) VBG pH 7.42 (7.32-7.43) VBG pCO2 70 mmHg VBG pO2 52 mmHg VBG HCO3 46 H (22-26) mmol/L VBG O2 Saturation 82.0 % VBG Base Excess 17.9 mmol/L Sodium 144 (135-145) mmol/L Potassium 3.8 (3.3-5.1) mmol/L Chloride 97 (96-108) mmol/L Carbon Dioxide 36 H (22-29) mmol/L Anion Gap 15 (12-20) BUN 10 (9-16) mg/dL Creatinine 0.82 (0.5-1.4) mg/dL Estim Creat Clear Calc 66.8 Estimated GFR > 60 Random Glucose 95 (60-115) mg/dL Calcium 10.0 (8.4-10.2) mg/dL Total Bilirubin 0.3 (0.0-1.0) mg/dL AST 22 (5-31) U/L ALT 16 (0-31) U/L Alkaline Phosphatase 69 (39-117) U/L Troponin I High Sens < 2.7 (<3.5-17.0) ng/L B-Natriuretic Peptide 169 H (<100) pg/mL Total Protein 7.1 (6.5-8.0) g/dL Albumin 4.1 (3.5-5.0) g/dL Influenza Type A (PCR) NEGATIVE (Negative) Influenza Type B (PCR) NEGATIVE (Negative) RSV RNA Qual (PCR) NEGATIVE (Negative) SARS-CoV-2 RNA (RT-PCR) NEGATIVE (Negative) ABG Data ABG Results: Attestation ABG: I personally reviewed and interpreted this ABG as follows: Interpretation: Chronic, compensated respiratory acidosis Independent Interpretation I performed an independent interpretation of an: EKG and Plain X-Ray Interpretation: Chest x-ray with chronic interstitial markings, atelectasis/scarring at the left base, poor differentiation of the left heart border, pulmonary nodules on the left side. EKG with normal sinus rhythm, ventricular rate 79 beats per minute, normal DC interval, normal QTC, no ST segment elevations or depressions. Radiology Impression Discussion of test interpretation with radiology: I have reviewed the radiologist's reading. Radiologist Impression: EXAMINATION: XR CHEST CLINICAL INFORMATION: Dyspnea and chest pain COMPARISON: March 1722 TECHNIQUE: 2 views of the chest were obtained. FINDINGS: There are pancreas interstitial markings bilaterally with ill-defined left upper lobe nodule. There is scarring/atelectasis at the left lung base. Cardiomediastinal silhouette is unremarkable. XR/XR chest 2V IMPRESSION: No active cardiopulmonary disease. Left upper lobe nodule and left lung base scarring/atelectasis External Record Review External record reviewed: Inpatient record, Office record, Outpatient record, Prior outpatient labs and Prior outpatient radiology Tests considered The following testing was considered but not selected: CTA considered Prescription Management I considered prescription management with: Antibiotic Chronic Conditions Patient?s care impacted by: Other (COPD) Social Determinants Patient?s care significantly limited by Social Determinants of Health including: Problems related to primary support group and Other Social Determinant of Health Critical Care Time Critical Care Time Critical Care Time: Yes Total Critical Care Time: 32 Attestation: I have personally provided critical care time exclusive of time spent on separately billable procedures. Time includes review of lab data, radiology results, discussion with consultants, and monitoring for potential decompensation. Intervention performed as documented. Discharge Plan Discharge Clinical Impression: COPD exacerbation Patient Disposition: Admitted As Inpatient Print Language: Persian
--- NOTE | 2024-06-21 11:11 | ECG_ITS ---
Test Reason : CHEST PAIN Blood Pressure : / mmHG Vent. Rate : 079 BPM Atrial Rate : 079 BPM P-R Int : 148 ms QRS Dur : 082 ms QT Int : 346 ms P-R-T Axes : 054 068 042 degrees QTc Int : 396 ms Normal sinus rhythm Normal ECG When compared with ECG of 13-APR-2022 08:55, No significant change was found Referred By: Hailey Burrell Electronically Signed By:JOYCE CEBALLOS
[2024-06-21 11:42] LABS: MANUAL DIFF FLAG NO
[2024-06-21 11:46] LABS: Basophils Percent Auto 0.6 % (0-2); Eosinophils Percent Auto 0.2 % (0-4); Hematocrit 37.6 % (37.0-47.0); Hemoglobin 12.1 g/dl (12.0-16.0); Imm Gran Abs Auto 0.02 X10*3/uL (0.00-0.03); Imm Gran Pct Auto 0.4 % (0.0-0.4); Lymphocytes Absolute Auto 0.5 X10*3/uL (1.2-4.9); Lymphocytes Percent Auto 10.7 % (20-40); Mean Corpuscular HGB Conc 32.2 g/dl (31.0-35.0); Mean Corpuscular Volume 93.1 fL (80.0-98.0); Mean Platelet Volume 9.3 fL (9.4-12.3); Monocytes Absolute Auto 0.5 X10*3/uL (0.1-1.2); Monocytes Percent Auto 10.5 % (2-11); Neutrophils Absolute Auto 3.7 x10*3/uL (2.0-8.3); Neutrophils Percent Auto 77.6 % (45-73); Platelet Count 331 X10*3/uL (160-400); Red Blood Count 4.04 X10*6/uL (4.20-5.50); Red Cell Distribution Width 14.7 % (11.0-16.0); White Blood Count 4.8 X10*3/uL (4.8-10.8)
[2024-06-21 11:47] LABS: Venous Blood Gas Refer to POC result
[2024-06-21 11:48] LABS: VBG Base Excess 17.9 mmol/L; VBG HCO3 46 mmol/L (22-26); VBG pCO2 70 mmHg; VBG pH 7.42 (7.32-7.43); VBG pO2 52 mmHg
[2024-06-21 11:51] LABS: Prothrombin Time 12.2 SEC (11.1-13.3)
[2024-06-21 11:59] LABS: Alanine Aminotransferase 16 U/L (0-31); Albumin Level 4.1 g/dL (3.5-5.0); Alkaline Phosphatase 69 U/L (39-117); Anion Gap 15 (12-20); Aspartate Amino Transferase 22 U/L (5-31); Bilirubin Total 0.3 mg/dL (0.0-1.0); Blood Urea Nitrogen 10 mg/dL (9-16); Carbon Dioxide 36 mmol/L (22-29); Chloride 97 mmol/L (96-108); Creatinine Clr Calc Pharmacy 66.8; Estimated Glomerular Filt Rate > 60; Glucose Random 95 mg/dL (60-115); Potassium 3.8 mmol/L (3.3-5.1); Sodium 144 mmol/L (135-145); Total Protein 7.1 g/dL (6.5-8.0)
[2024-06-21 12:05] LABS: B Type Natriuretic Peptide 169 pg/mL (<100)
[2024-06-21 12:07] LABS: Troponin-I High Sensitivity < 2.7 ng/L (<3.5-17.0)
[2024-06-21 12:25] LABS: Influenza A PCR NEGATIVE (Negative); Influenza B PCR NEGATIVE (Negative); Resp Syncy Virus RNA Qual PCR NEGATIVE (Negative); SARS COV2 PCR INHOUSE NEGATIVE (Negative)
[2024-06-21 14:00] VITALS: BP 143/62; PULSE 74; RESP 22; TEMP 36.8; O2SAT 96
[2024-06-21] MEDS: Albuterol Sulfate 7.5 MG, Albuterol/Iprat 2.5/0.5MG 3 ML 3 ML INHALE (14:29)
[2024-06-21 14:30] VITALS: PULSE 70; RESP 21; O2SAT 97
--- NOTE | 2024-06-21 15:20 | PC.NURSE ---
This RN was a second nurse who attempted multiple IV, provider aware that nursing staff unable to get IV and that an US line is needed. MAR to reflect no IV access
[2024-06-21 16:00] VITALS: BP 130/70; PULSE 72; RESP 20; TEMP 36.8; O2SAT 94
--- NOTE | 2024-06-21 16:34 | PM.IMHP ---
History of Present Illness Date of Service: 06/21/24 Attending physician on admission: Kelly Pruett Chief Complaint: SOB, difficulty breathing Pt is a 68-year-old female with a PMH significant for end stage COPD on 3L NC at rest and 6L with activity, chronic hypoxic and hypercarbic respiratory failure on Triology at night, follows with Dr. Acharya?in pulmonology, HTN, hx of tracheostomy, osteoporosis, and mood disorder who presents to the ED from pulmonary rehab with worsening SOB, difficulty breathing, and unable to complete rehab activities today. Also complains of increased cough productive of greenish sputum and chest tightness associated with cough. Denies fever, chills, nausea, vomiting. No abdominal pain. Denies urinary symptoms. Of note, pt fell at SNF in November and fractured multiple ribs. Currently is residing in [place] [facility]. ? In the ED pt was tachypneic up to 22 and initially hypertensive up to 176/68. Labs were significant for mild elevated BNP of 169, otherwise grossly unremarkable and around baseline for pt. No leukocytosis. Stable H&H. No significant electrolyte abnormalities. Renal and hepatic function WNL. VB pH 7.42 with pCO2 70 and bicarb 46. CXR showed no acute cardiopulmonary disease. EKG demonstrated normal sinus rhythm with no evidence of significant ST elevations or depressions. Pt was treated with DuoNebs, Solu-Medrol, furosemide 20 mg, and doxycycline. Pt will be admitted to the hospital for treatment and further evaluation of acute on chronic hypoxic and hypercarbic respiratory failure in the setting of acute COPD exacerbation. Review of Systems Review of Systems: Increased SOB, difficulty breathing Increased cough productive of greenish sputum FERNANDEZ Chest tightness associated with cough Denies fever, chills, nausea, vomiting No abdominal pain Denies polyuria, dysuria [facility] Medical History Rib fractures Pulmonary nodule Tubular adenoma of colon (~2006) Osteopenia (~2012) Bronchopneumonia Chest pain Chronic respiratory alkalosis ILD (interstitial lung disease) CO2 retention Acute on chronic respiratory failure with hypoxia and hypercapnia Bipolar depression Eczema Limb swelling Insomnia Bronchitis Vasomotor rhinitis COPD (chronic obstructive pulmonary disease) Chronic respiratory failure Fall Acute metabolic encephalopathy Acute and chronic respiratory failure with hypercapnia Family History Other Hypertension Surgical History History of carpal tunnel surgery (~2000) History of ventral hernia repair (~2003) History of left inguinal hernia repair (~1995) History of tracheostomy (~2016) History of cataract surgery (~2018) History of colonoscopy Social History Household Members: None Housing: Apartment Housing Other:: person comes to do housework. Are you a primary intensive care specialist to a significant other at home: No Do you presently have visiting nurse or other home services: Yes Alcohol intake: unknown Patient Tobacco Use Status: Former Tobacco user Tobacco use type: Cigarette Years Smoked: 20+ years Smoked in Last 30 Days: No e-Cigarette/Vaping Use: Never Used Second Hand Smoke Exposure: No Use of substances other than those prescribed or required for medical reasons: No Advance Directives: Yes Advance Directives on File: Yes Advance Directives Date on File: 11/30/21 Do you have a plan to hurt others: No Plan service: No Current occupational status: disabled Meds Allergies Allergy/AdvReac Type Severity Reaction Status Date / Time codeine [Codeine] Allergy Intermediate RESTLESS/RA Verified 06/21/24 11:11 SH haloperidol [Haldol] Allergy Intermediate Palpitation Verified 06/21/24 11:11 s Sulfa (Sulfonamide Allergy Intermediate HIVES Verified 06/21/24 11:11 Antibiotics) Active Medications: Current Medications Acetaminophen (Acetaminophen 325 Mg Tablet) 650 mg PO Q6H PRN PRN Reason: Pain, Mild (Pain Scale 1-3), fever or headache Albuterol/Ipratropium (Albuterol/Iprat 2.5/0.5mg 3 Ml Ampul.Neb) 3 ml INHALE RQ4H WHILE AWAKE ALYSSA Calcium Carbonate (Calcium Carbonate 750 Mg Tab.Chew) 750 mg PO Q4H PRN PRN Reason: Heartburn Enoxaparin Sodium (Enoxaparin Sodium 40 Mg/0.4 Ml Syringe) 40 mg SUBCUT Q24H ALYSSA Magnesium Hydroxide (Milk Of Magnesia 30 Ml Oral.Susp) 30 ml PO DAILY PRN PRN Reason: Constipation Melatonin (Melatonin 3 Mg Tablet) 6 mg PO BEDTIME PRN PRN Reason: Insomnia Methylprednisolone Sodium Succinate (Methylprednisolone Sod Succ 40 Mg/Ml Vial) 40 mg IVPUSH Q12H [facility] Sodium Chloride (0.9 % Sodium Chloride Flush 3 Ml Syringe) 3 ml IVFLUSH QSHIFT [facility] Home Medications ?Medication ?Instructions ?Recorded ?Confirmed ?Last Taken ?Type acetaminophen 500 mg tablet 1,000 mg PO TID PRN Headache 02/09/21 05/17/24 Unknown History albuterol sulfate 90 mcg/actuation 2 puff inhalation QID PRN 02/09/21 05/17/24 Unknown History aerosol inhaler (Proventil HFA) Respiratory Distress alendronate 70 mg tablet (Fosamax) 70 mg PO SA 02/09/21 05/17/24 02/27/22 History aspirin 81 mg tablet,delayed 81 mg PO DAILY 02/09/21 05/17/24 03/01/22 History release cholecalciferol (vitamin D3) 50 50 mcg PO DAILY 02/09/21 05/17/24 03/01/22 History mcg (2,000 unit) capsule (Vitamin D3) lamotrigine 150 mg tablet 300 mg PO BEDTIME 02/09/21 05/17/24 02/28/22 History lamotrigine 200 mg tablet 200 mg PO DAILY 02/09/21 05/17/24 03/01/22 History magnesium oxide 400 mg PO BID 02/09/21 05/17/24 03/01/22 History montelukast 10 mg tablet 10 mg PO BEDTIME 02/09/21 05/17/24 02/28/22 History mirtazapine 15 mg tablet 15 mg PO BEDTIME 09/10/21 05/17/24 02/28/22 History sennosides 8.6 mg tablet (Senokot) 8.6 mg PO BEDTIME 09/10/21 05/17/24 02/28/22 History metoprolol succinate 50 mg 50 mg PO DAILY 11/18/21 05/17/24 03/01/22 History tablet,extended release 24 hr albuterol sulfate 2.5 mg/3 mL mg inhalation 09/20/22 05/17/24 Unknown History (0.083 %) solution for nebulization aripiprazole 15 mg tablet 15 mg PO DAILY 11/02/22 05/17/24 Unknown History omega-3 fatty acids-fish oil 300 cap PO 11/02/22 05/17/24 Unknown History mg-500 mg capsule (Fish Oil) Oxygen Home Use 04/15/23 05/17/24 Unknown History fluticasone propionate 50 1 spray intranasal BID 04/15/23 05/17/24 Unknown History mcg/actuation nasal spray,suspension nebulizers 04/15/23 05/17/24 Unknown History vilazodone 40 mg tablet 40 mg PO DAILY 04/15/23 05/17/24 Unknown History gabapentin 100 mg capsule mg PO 09/20/23 05/17/24 Unknown History fluticasone furoate 200 1 inh inhalation DAILY PRN SOB 06/21/24 06/21/24 Unknown History mcg-vilanterol 25 mcg/dose inhalation powder (Breo Ellipta) pantoprazole 40 mg tablet,delayed 40 mg PO DAILY 06/21/24 Unknown History release salmeterol 50 mcg/dose blister 1 inh inhalation BID 06/21/24 Unknown History powder for inhalation (Serevent Diskus) Physical Exam Vital Signs and Narrative: Vital Signs: Last Vital Signs Temp 98.3 F 06/21/24 16:00 Pulse 72 06/21/24 16:00 Resp 20 06/21/24 16:00 BP 130/70 06/21/24 16:00 Pulse Ox 94 06/21/24 16:00 O2 Del Method Nasal Cannula 06/21/24 16:00 O2 Flow Rate 3 06/21/24 16:00 Oxygen Flow Rate 3 06/21/24 11:08 BMI result Body Mass Index 35.7 General: AOx3, no acute distress Resp: Lungs diminished bilaterally, especially lower lobes CVS: S1, S2, RRR GI: +BS, NT, no distention Skin: Warm, dry Neuro: Cranial nerves II-XII grossly intact bilaterally. Motor grossly intact bilaterally Extremities: No edema Psych: Appropriate affect Results Labs 06/21/24 11:38 06/21/24 11:38 Labs: Laboratory Results - last 24 hr 06/21/24 06/21/24 11:38 11:40 MCV 93.1 MCH 30.0 MCHC 32.2 RDW 14.7 Plt Count 331 MPV 9.3 L Immature Gran % (Auto) 0.4 Neut % (Auto) 77.6 H Lymph % (Auto) 10.7 L Barnes % (Auto) 10.5 Eos % (Auto) 0.2 Baso % (Auto) 0.6 Lymph # (Auto) 0.5 L Barnes # (Auto) 0.5 Eos # (Auto) 0.0 Baso # (Auto) 0.0 Abs Immat Gran (auto) 0.02 Absolute Neuts (auto) 3.7 Absolute Nucleated RBC 0.000 Nucleated RBC % (auto) 0.0 PT 12.2 INR 1.0 VBG pH 7.42 VBG pCO2 70 VBG pO2 52 VBG HCO3 46 H VBG O2 Saturation 82.0 VBG Base Excess 17.9 Anion Gap 15 Estim Creat Clear Calc 66.8 Estimated GFR > 60 Random Glucose 95 Calcium 10.0 Total Bilirubin 0.3 AST 22 ALT 16 Alkaline Phosphatase 69 Troponin I High Sens < 2.7 B-Natriuretic Peptide 169 H Total Protein 7.1 Albumin 4.1 Influenza Type A (PCR) NEGATIVE Influenza Type B (PCR) NEGATIVE RSV RNA Qual (PCR) NEGATIVE SARS-CoV-2 RNA (RT-PCR) NEGATIVE Imaging Radiologist's Impressions: Impressions Chest X-Ray 06/21/24 11:41 IMPRESSION: No active cardiopulmonary disease. Left upper lobe nodule and left lung base scarring/atelectasis Assessment and Plan (1) COPD exacerbation: Status: Acute (2) Acute and chronic respiratory failure with hypercapnia: Status: Acute Plan Pt is a 68-year-old female with a PMH significant for end stage COPD on 3L NC at rest and 6L with activity, chronic hypoxic and hypercarbic respiratory failure on Triology at night, follows with Dr. Acharya?in pulmonology, HTN, hx of tracheostomy, osteoporosis, and mood disorder who presents to the ED from pulmonary rehab with worsening SOB, difficulty breathing, and unable to complete rehab activities today. Pt will be admitted to the hospital for treatment and further evaluation of acute on chronic hypoxic and hypercarbic respiratory failure in the setting of acute COPD exacerbation. Acute on chronic hypoxic and hypercarbic respiratory failure in the setting of acute COPD exacerbation Patient with increased SOB, FERNANDEZ, productive cough CXR negative for acute cardiopulmonary disease Will treat with Duonegilma Solu-Medrol Patient does not meet sepsis criteria: Tachypnea, but no tachycardia, leukocytosis, or fever Will empirically cover with doxycycline, started 06/21/2024 Titrate supplemental O2 to >90, wean as tolerated Continue home inhalers Patient on home 3L at rest and 6L with exertion Pulmonology consult Elevated BNP BNP mildly elevated 169, up from 91 on 04/13/2022 Was given Lasix 20mg IV in the ED Echo on 10/06/2021 showed LVEF hyperdynamic at >70% with mild mitral annular classification but no obvious valvular pathology Continue compression stockings, home furosemide Will get new echocardiogram Nighttime ventilator Pt on Triology at night Will order nighttime BiPAP Mood disorder Continue home mood stabalizers HTN Continue metoprolol Full Code Attending:?Dr. Pruett DVT Prophylaxis: Lovenox Pt will require a hospitalization of at least two nights for treatment of?acute on chronic hypoxic and hypercarbic respiratory failure in the setting of acute COPD exacerbation. Patient required hospitalization for administration of IV steroids, breathing treatments, and close monitoring respiratory status. Quality Stroke Does the patient have a stroke diagnosis?: No VTE Prior VTE?: No VTE Risk Level:: Medical - moderate - high VTE Device Contraindication: Treatment Not Indicated VTE Drug Contraindication: N/A - Med Ordered
--- NOTE | 2024-06-21 16:41 | PHA.MEDREC ---
Addendum entered by Foreign Wu RPh 06/21/24 17:43: Reviewed by [facility]. Patient states she does not take nay inhaler daily, and all are PRN. Original Note: Pharmacy Consult ? Medication Reconciliation Pharmacy has completed the medication reconciliation. Confirmed medications with patient and patient nurse at bedside. Patient was able to confirm most of her meds and dosing without any help from her nurse. She also confirmed she last took her medicine this morning.
[2024-06-21 16:49] VITALS: BP 130/70
[2024-06-21] MEDS: Furosemide 20 MG/2 ML VIAL IVPUSH (16:49)
[2024-06-21] MEDS: methylPREDNISolone Sod Succ 40 MG/ML VIAL IVPUSH (16:49)
[2024-06-21] MEDS: Doxycycline Hyclate 100 MG in 0.9 % Sodium Chloride 250 ML 166.67 MG IV (16:49)
[2024-06-21] MEDS: Enoxaparin Sodium 40 MG/0.4 ML SYRINGE SUBCUT (18:16)
[2024-06-21] MEDS: Omeprazole 20 MG CAPSULE.DR PO (19:39)
[2024-06-21 20:36] VITALS: PULSE 72; RESP 16; O2SAT 93
[2024-06-21] MEDS: Albuterol/Iprat 2.5/0.5MG 3 ML AMPUL.NEB INHALE (20:36)
[2024-06-21] MEDS: Gabapentin 100 MG CAPSULE PO (21:23)
[2024-06-21] MEDS: Montelukast Sodium 10 MG TABLET PO (21:23)
[2024-06-21] MEDS: Magnesium Oxide 400 MG TABLET PO (21:23)
[2024-06-21] MEDS: Sennosides 8.6 MG TABLET PO (21:23)
[2024-06-21] MEDS: lamoTRIgine 100 MG TABLET 300 MG PO (21:23)
[2024-06-21] MEDS: Mirtazapine 15 MG TABLET PO (21:24)
[2024-06-22] VITALS (11 sets, daily range): BP systolic 124–163; BP diastolic 57–87; PULSE 59–89; RESP 12–20; TEMP 36–36.6; O2SAT 90–96; BMI 34.4
[2024-06-22] MEDS: 0.9 % Sodium Chloride Flush 3 ML SYRINGE IVFLUSH ×3 (00:11→20:21)
--- NOTE | 2024-06-22 00:13 | PC.NURSE ---
RT at bedside, patient placed on nocturnal BIPAP.
[2024-06-22] MEDS: Doxycycline Hyclate 100 MG in 0.9 % Sodium Chloride 250 ML 166.67 MG IV ×2 (02:00→14:27)
[2024-06-22] MEDS: methylPREDNISolone Sod Succ 40 MG/ML VIAL IVPUSH ×2 (02:00→13:09)
--- NOTE | 2024-06-22 07:00 | CA_ITS ---
Transthoracic Echocardiogram Patient (Last, First, Middle): Lluvia Cartagena Ann Gender: Female Date of : 1955 Age: 68 Procedure Date: 06/22/2024 Procedure Type: Transthoracic Echocardiogram Location: S3E Height: 157.48 cm Weight: 88. 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 The visually estimated ejection fraction is >70%. - There is mild mitral annular calcification. Findings Left Ventricle Normal left ventricular cavity size. There is mildly increased left ventricular wall thickness. The left ventricular systolic function is hyperdynamic. The visually estimated ejection fraction is >70%. There is no evidence of regional wall motion abnormalities. Diastolic function is normal for age. Right Ventricle Mildly increased right ventricular cavity size. There is normal right ventricular systolic function. Atria Both atria are normal in size. Aortic Valve There is a normal trileaflet aortic valve. There is no aortic valve stenosis. There is no aortic valve regurgitation. Mitral Valve There is mild mitral annular calcification. There is trace mitral valve regurgitation. There is no mitral valve stenosis. Pulmonic Valve The pulmonic valve is likely normal. Tricuspid Valve There is trace tricuspid valve regurgitation. There is no evidence of pulmonary hypertension. Great Vessels The sinuses of valsalva and sino tubular ridge are normal in size. Venous The inferior vena cava is normal in size and collapses greater than 50% with inspiration. Pericardium/Pleural There is no evidence of pericardial effusion. Prior Study Comparison No prior study available for comparison. Measurements 2D Linear Measurements IVSd: 1.07 0.6-0.9/0.6-1.0 cm LVIDd: 4.29 3.9-5.3/4.2-5.9 cm LVIDd Index: 2.27 2.4-3.2/2.2-3.1 cm/m2 LVIDs: 2.65 2.0-3.6 cm LVPWd: 1.06 0.7-1.1 cm Ao Root: 2.70 2.1-3.5 cm LA Diam: 4.00 2.7-3.8/3.0-4.0 cm LAIDs Index: 2.12 1.5-2.3 cm/m2 LV Mass: 193.08 67-162/88-224 g LV Mass Index: 102.16 43-95/49-115 g/m2 LVOT Diam: 2.10 3.0+(-)1.3 cm 2D Systolic Function EF 4C: 74.90 >55% EF 2C: 74.30 >55% EF BiP: 73.60 >55% Mitral Valve MV Pk E: 1.13 MV PK A: 1.32 MV Decel Time: 149.00 E/A: 0.90 E'Lateral: 8.70 E'Medial: 6.85 E/E' Med: 16.50 E/E' Lat: 13.00 PHT: 44.00 MVA PHT: 5.00 Decel [place]: 7.57 Aortic Valve AoV Pk Jeb: 2.13 AoV Mn Jeb: 1.30 AoV VTI: 0.39 AoV Pk Grad: 18.00 Aov Mn Grad: 9.00 EKATERINA Cont.VTI: 2.72 LVOT LVOT Pk Jeb: 1.32 LVOT Mn Jeb: 0.85 LVOT VTI: 0.31 LVOT Pk Grad: 7.00 LVOT Mn Grad: 4.00 LVOT Diam: 2.10 LVOT Area: 3.46 Diastolic Function MV Pk E: 1.13 MV Pk A: 1.32 E/A: 0.90 E'Medial: 6.85 E/E' Med: 16.50 E' Laterial: 8.70 E/E' Lat: 13.00 Right Ventricle TAPSE (mm): 28.00 TVS' Jeb: 19.00 Tricuspid Valve TR Pk Jeb: 2.67 TR Pk Grad: 29.00 RA Press: 3.00 RVSP: 32.00 Great Vessels Aorta Ao Root-2D: 2.70 2.0-3.7 cm Pulmonary Valve PV Pk Jeb: 1.43 Peak PV Grad: 8.00 Updated in Other Vendor System with Status of Final Roberto Desir MD electronically signed on 06/22/2024 11:59:47 AM with status of Final
[2024-06-22] MEDS: Albuterol/Iprat 2.5/0.5MG 3 ML AMPUL.NEB INHALE ×4 (07:45→19:58)
[2024-06-22] MEDS: Vilazodone HCL 40 MG TABLET PO (09:17)
[2024-06-22] MEDS: Cholecalciferol (Vitamin D3) 25 MCG TABLET 50 MCG PO (09:17)
[2024-06-22] MEDS: Magnesium Oxide 400 MG TABLET PO ×2 (09:17→20:18)
[2024-06-22] MEDS: Omeprazole 20 MG CAPSULE.DR PO (09:17)
[2024-06-22] MEDS: Aspirin Enteric Coated 81 MG TABLET.DR PO (09:17)
[2024-06-22] MEDS: lamoTRIgine 100 MG TABLET 200 MG PO (09:17)
[2024-06-22] MEDS: Gabapentin 100 MG CAPSULE PO ×3 (09:18→20:18)
[2024-06-22] MEDS: ARIPiprazole 15 MG TABLET PO (09:18)
[2024-06-22] MEDS: Theophylline Anhydrous ER 400 MG TAB.ER.24H 200 MG PO ×2 (09:18→20:18)
[2024-06-22] MEDS: Furosemide 20 MG TABLET PO (09:19)
[2024-06-22] MEDS: Metoprolol Succinate ER 50 MG TAB.ER.24H PO (09:19)
--- NOTE | 2024-06-22 09:54 | MHC.CM.PN ---
IMM DELIVERED. PATIENT RESIDES IN A [facility] SINCE JANUARY 2024. SENIOR LIVING DIRECTOR GENTRY - [phone] STATES SHE IN INDEPENDENT W/ MOST ADL'S. AMBULATES W/ ROLLATOR, USES W/C PRN. HAS O2 & BIPAP THROUGH [facility]. PCP DOT ROLAND MD HCP & MOLST ON FILE AND VERIFIED. NO ADDITIONAL SERVICES. HAS BEEN TO [facility] X[facility] OVER THE LAST TWO YEARS. DP: GOAL IS RETURN TO , STAFF TRANSPORT VS BLS. IF STR IS RECOMMENDED WOULD PREFER [facility]. CM WILL CONTINUE TO FOLLOW.
--- NOTE | 2024-06-22 13:02 | P.CONPL_ITS ---
History of Present Illness History of Present Illness Consult date: 06/22/24 Chief complaint: sob, difficulty breathing Narrative: 68-year-old lady with underlying advanced COPD on supplemental oxygen 3 L at rest and 6 with exertion, also diastolic dysfunction admitted with dyspnea secondary to exacerbation of underlying COPD/congestive heart failure and treated empirically, now with slow improvement. Review of Systems 2 Constitutional: Constitutional: Denies daytime sleepiness, Denies excessive sweating, Denies fatigue, Denies fever(s), Denies lethargy, Denies malaise, Denies night sweats, Denies snoring and Denies weight loss Eyes: Eyes: Denies blurry vision and Denies itchy eyes ENT: Denies nasal congestion, Denies post nasal drip, Denies sinus pain, Denies sinus pressure and Denies other ( Thrush) Cardiovascular: Cardiovascular: Denies chest pain, Denies pedal edema, Denies dyspnea, Reports dyspnea on exertion, Denies orthopnea and Denies paroxysmal nocturnal dyspnea Respiratory: Respiratory: Reports cough, Denies hemoptysis, Denies excessive phlegm production, Denies dyspnea, Reports dyspnea on exertion, Denies snoring and Reports wheezing Gastrointestinal: Gastrointestinal: Denies abdominal pain and Denies heartburn Musculoskeletal: Musculoskeletal: Denies myalgias, Denies arthralgias and Denies joint swelling Integumentary/Breasts: Skin/Breast: Denies rash Neurologic: Denies memory loss and Denies seizure-like activity Psychiatric: Psychiatric: Denies abnormal sleep pattern, Denies anxiety and Denies memory loss Endocrine: Endocrine: Denies excessive sweating, Denies fatigue and Denies heat intolerance Hematologic/Lymphatic: Hematologic/Lymphatic: Denies easy bruising Allergic/Immunologic: Allergic/Immunologic: Denies itchy eyes, Denies seasonal rhinorrhea and Reports wheezing [facility] Past Medical History Medical History Rib fractures Pulmonary nodule Tubular adenoma of colon (~2006) Osteopenia (~2012) Bronchopneumonia Chest pain Chronic respiratory alkalosis ILD (interstitial lung disease) CO2 retention Acute on chronic respiratory failure with hypoxia and hypercapnia Bipolar depression Eczema Limb swelling Insomnia Bronchitis Vasomotor rhinitis COPD (chronic obstructive pulmonary disease) Chronic respiratory failure Fall Acute metabolic encephalopathy Acute and chronic respiratory failure with hypercapnia Family History Family History Other Hypertension Surgical History Surgical History History of carpal tunnel surgery (~2000) History of ventral hernia repair (~2003) History of left inguinal hernia repair (~1995) History of tracheostomy (~2016) History of cataract surgery (~2018) History of colonoscopy Social History Social History Household Members: Other Household Members Other:: pulmonary rehab Housing: Other Housing Other:: retirement Are you a primary care team coordinator scheduler to a significant other at home: No Do you presently have visiting nurse or other home services: Yes Alcohol intake: unknown Patient Tobacco Use Status: Former Tobacco user Tobacco use type: Cigarette Years Smoked: 20+ years Smoked in Last 30 Days: No e-Cigarette/Vaping Use: Never Used Second Hand Smoke Exposure: No Use of substances other than those prescribed or required for medical reasons: No Currently Displaying Signs/Symptoms of Drug Intoxication Withdrawal: No Have you been hit, kicked, punched, or otherwise hurt by someone within the past year? If so, by whom?: No Do you feel safe in your current relationship?: No Is there a partner from a previous relationship who is making you feel unsafe now?: No Are you made to feel afraid or neglected: No [employer] Healthcare Practices: [employer] Advance Directives: Yes Advance Directives on File: Yes Advance Directives Date on File: 11/30/21 Do you have a plan to hurt others: No Plan Recently lost weight without trying: No Nutrition Risks: No Nutritional Risk Patient : No : No Poor oral hygiene: No service: No Current occupational status: disabled Meds Allergies Allergy/AdvReac Type Severity Reaction Status Date / Time codeine [Codeine] Allergy Intermediate RESTLESS/RA Verified 06/21/24 11:11 SH haloperidol [Haldol] Allergy Intermediate Palpitation Verified 06/21/24 11:11 s Sulfa (Sulfonamide Allergy Intermediate HIVES Verified 06/21/24 11:11 Antibiotics) Active Medications: Current Medications Acetaminophen (Acetaminophen 325 Mg Tablet) 650 mg PO Q6H PRN PRN Reason: Pain, Mild (Pain Scale 1-3), fever or headache Albuterol/Ipratropium (Albuterol/Iprat 2.5/0.5mg 3 Ml Ampul.Neb) 3 ml INHALE RQ4H WHILE AWAKE [facility] [place] Last Admin: 06/22/24 11:26 Dose: 3 ml Aripiprazole (Aripiprazole 15 Mg Tablet) 15 mg PO DAILY [facility] [place] Last Admin: 06/22/24 09:18 Dose: 15 mg Aspirin (Aspirin Enteric Coated 81 Mg Tablet.Dr) 81 mg PO DAILY [facility] [place] Last Admin: 06/22/24 09:17 Dose: 81 mg Benzonatate (Benzonatate 100 Mg Capsule) 100 mg PO TID PRN PRN Reason: Cough Calcium Carbonate (Calcium Carbonate 750 Mg Tab.Chew) 750 mg PO Q4H PRN PRN Reason: Heartburn Docusate Sodium (Docusate Sodium 100 Mg Capsule) 100 mg PO DAILY PRN PRN Reason: Constipation Enoxaparin Sodium (Enoxaparin Sodium 40 Mg/0.4 Ml Syringe) 40 mg SUBCUT Q24H [facility] [place] Last Admin: 06/21/24 18:16 Dose: 40 mg Fluticasone Propionate (Fluticasone Propionate Nasal 16 Gm [place]) 1 spray NOSTRIL-B BID PRN PRN Reason: Allergies Furosemide (Furosemide 20 Mg Tablet) 20 mg PO DAILY [facility] [place]; Protocol Last Admin: 06/22/24 09:19 Dose: 20 mg Gabapentin (Gabapentin 100 Mg Capsule) 100 mg PO TID [facility] [place] Last Admin: 06/22/24 09:18 Dose: 100 mg Doxycycline Hyclate 100 mg/ (Sodium Chloride) 250 mls @ 166.67 mls/hr IV Q12H [facility] [place] Last Infusion: 06/22/24 04:30 Dose: Infused Lamotrigine (Lamotrigine 100 Mg Tablet) 300 mg PO BEDTIME [facility] [place] Last Admin: 06/21/24 21:23 Dose: 300 mg Lamotrigine (Lamotrigine 100 Mg Tablet) 200 mg PO DAILY [facility] [place] Last Admin: 06/22/24 09:17 Dose: 200 mg Magnesium Hydroxide (Milk Of Magnesia 30 Ml Oral.Susp) 30 ml PO DAILY PRN PRN Reason: Constipation Magnesium Oxide (Magnesium Oxide 400 Mg Tablet) 400 mg PO BID [facility] [place] Last Admin: 06/22/24 09:17 Dose: 400 mg Melatonin (Melatonin 3 Mg Tablet) 6 mg PO BEDTIME PRN PRN Reason: Insomnia Methylprednisolone Sodium Succinate (Methylprednisolone Sod Succ 40 Mg/Ml Vial) 40 mg IVPUSH Q12H [facility] [place] Last Admin: 06/22/24 02:00 Dose: 40 mg Metoprolol Succinate (Metoprolol Succinate Er 50 Mg Tab.Er.24h) 50 mg PO DAILY [facility] [place]; Protocol Last Admin: 06/22/24 09:19 Dose: 50 mg Mirtazapine (Mirtazapine 15 Mg Tablet) 15 mg PO BEDTIME [facility] [place] Last Admin: 06/21/24 21:24 Dose: 15 mg Montelukast Sodium (Montelukast Sodium 10 Mg Tablet) 10 mg PO BEDTIME [facility] [place] Last Admin: 06/21/24 21:23 Dose: 10 mg Omeprazole (Omeprazole 20 Mg Capsule.Dr) 20 mg PO DAILY [facility] [place] Last Admin: 06/22/24 09:17 Dose: 20 mg Ondansetron HCl (Ondansetron Hcl 4 Mg/2 Ml Vial) 4 mg IVPUSH Q8H PRN PRN Reason: Nausea and Vomiting Senna (Sennosides 8.6 Mg Tablet) 8.6 mg PO BEDTIME [facility] [place] Last Admin: 06/21/24 21:23 Dose: 8.6 mg Sodium Chloride (0.9 % Sodium Chloride Flush 3 Ml Syringe) 3 ml IVFLUSH QSHIFT [facility] [place] Last Admin: 06/22/24 09:19 Dose: 3 ml Theophylline (Theophylline Anhydrous Er 400 Mg Tab.Er.24h) 200 mg PO BID [facility] [place] Last Admin: 06/22/24 09:18 Dose: 200 mg Vilazodone HCl (Vilazodone Hcl 40 Mg Tablet) 40 mg PO DAILY [facility] [place] Last Admin: 06/22/24 09:17 Dose: 40 mg Vitamin D (Cholecalciferol (Vitamin D3) 25 Mcg Tablet) 50 mcg PO DAILY [facility] [place] Last Admin: 06/22/24 09:17 Dose: 50 mcg Home Medications ?Medication ?Instructions ?Recorded ?Confirmed ?Last Taken ?Type acetaminophen 500 mg tablet 1,000 mg PO TID PRN Headache 02/09/21 06/21/24 Unknown History albuterol sulfate 90 mcg/actuation 2 puff inhalation QID PRN 02/09/21 06/21/24 Unknown History aerosol inhaler (Proventil HFA) Respiratory Distress alendronate 70 mg tablet (Fosamax) 70 mg PO SA 02/09/21 06/21/24 06/16/24 History aspirin 81 mg tablet,delayed 81 mg PO DAILY 02/09/21 06/21/24 06/21/24 06:30 History release cholecalciferol (vitamin D3) 50 50 mcg PO DAILY 02/09/21 06/21/24 06/21/24 06:30 History mcg (2,000 unit) capsule (Vitamin D3) lamotrigine 150 mg tablet 300 mg PO BEDTIME 02/09/21 06/21/24 06/20/24 History lamotrigine 200 mg tablet 200 mg PO DAILY 02/09/21 06/21/24 06/21/24 06:30 History magnesium oxide 400 mg PO BID 02/09/21 06/21/24 06/21/24 06:30 History montelukast 10 mg tablet 10 mg PO BEDTIME 02/09/21 06/21/24 06/20/24 History mirtazapine 15 mg tablet 15 mg PO BEDTIME 09/10/21 06/21/24 06/20/24 History sennosides 8.6 mg tablet (Senokot) 8.6 mg PO BEDTIME 09/10/21 06/21/24 06/20/24 History metoprolol succinate 50 mg 50 mg PO DAILY 11/18/21 06/21/24 06/21/24 06:30 History tablet,extended release 24 hr albuterol sulfate 2.5 mg/3 mL 2.5 mg inhalation QID PRN 09/20/22 06/21/24 Unknown History (0.083 %) solution for nebulization SOB/Wheezing aripiprazole 15 mg tablet 15 mg PO DAILY 11/02/22 06/21/24 06/21/24 06:30 History omega-3 fatty acids-fish oil 300 1 cap PO TID 11/02/22 06/21/24 06/21/24 06:30 History mg-500 mg capsule (Fish Oil) Oxygen Home Use 04/15/23 05/17/24 Unknown History fluticasone propionate 50 1 spray intranasal BID Allergies 04/15/23 06/21/24 Unknown History mcg/actuation nasal spray,suspension nebulizers 04/15/23 05/17/24 Unknown History vilazodone 40 mg tablet 40 mg PO DAILY 04/15/23 06/21/24 06/21/24 06:30 History gabapentin 100 mg capsule 100 mg PO TID 09/20/23 06/21/24 06/21/24 06:30 History fluticasone furoate 200 1 inh inhalation DAILY PRN SOB 06/21/24 06/21/24 Unknown History mcg-vilanterol 25 mcg/dose inhalation powder (Breo Ellipta) pantoprazole 40 mg tablet,delayed 40 mg PO DAILY@0630 06/21/24 06/21/24 06/21/24 06:30 History release salmeterol 50 mcg/dose blister 1 inh inhalation BID PRN SOB 06/21/24 06/21/24 06/21/24 06:30 History powder for inhalation (Serevent Diskus) Physical Exam 2 Vital Signs: Vital Signs: Last Vital Signs Temp 97.5 F 06/22/24 07:39 Pulse 85 06/22/24 11:43 Resp 20 06/22/24 11:43 BP 163/87 H 06/22/24 07:39 Pulse Ox 92 06/22/24 07:39 O2 Del Method Nasal Cannula 06/22/24 07:39 O2 Flow Rate 3 06/22/24 07:39 Oxygen Flow Rate 3 06/21/24 11:08 BMI result Body Mass Index 34.4 Const: General: no acute distress and alert Nutritional Appearance: not obese Orientation/consciousness: Other orientation findings ( oriented) HEENT: Head: Yes atraumatic Eyes: General: appearance normal, both eyes and all related structures S clerae: sclerae normal EOM: EOMs intact bilaterally Neck: Neck: Yes supple Lymphatic: no lymphadenopathy noted Resp: Effort & Inspection: normal respiratory effort and no use of accessory muscles Auscultation: clear to auscultation bilaterally Cardio: Rate: regular rate Rhythm: regular rhythm Heart sounds: no gallops, no murmurs and no rubs Skin: General skin exam: other ( warm) Extrem: General: No clubbing, No cyanosis and No edema Results Laboratory Findings 06/21/24 11:38 06/21/24 11:38 ABG, PT/INR, D-dimer: PT/INR, D-dimer PT 12.2 SEC (11.1-13.3) 06/21/24 11:38 INR 1.0 (0.9-1.1) 06/21/24 11:38 Abnormal lab findings: Abnormal Labs 06/21/24 06/21/24 11:38 11:40 RBC 4.04 L MPV 9.3 L Neut % (Auto) 77.6 H Lymph % (Auto) 10.7 L Lymph # (Auto) 0.5 L VBG HCO3 46 H Carbon Dioxide 36 H B-Natriuretic Peptide 169 H Assessment and Plan (1) COPD (chronic obstructive pulmonary disease): Qualifiers: COPD type: emphysema Emphysema type: centrilobular Qualified Code(s): J43.2 - Centrilobular emphysema Status: Acute (2) Chronic hypoxic respiratory failure: Status: Acute Plan Impression: 68-year-old lady with advanced COPD and diastolic dysfunction admitted with dyspnea and acute chronic hypoxic respiratory failure secondary to exacerbation at COPD/CHF, now improving. Recommendations: Agree with current. Treatment for COPD exacerbation and additional diuresis. Procedures Date of Service Date of Service: 06/22/24
--- NOTE | 2024-06-22 14:49 | HO.PM.IMPN ---
Subjective Subjective Date of Service: 06/22/24 Interval History: copd excerebation Review of Systems sob seems similar has dry cough no nausea or vomitin Physical Exam Vital Signs: Vital Signs: Last Vital Signs Temp 97.5 F 06/22/24 07:39 Pulse 89 06/22/24 14:10 Resp 20 06/22/24 14:10 BP 163/87 H 06/22/24 07:39 Pulse Ox 92 06/22/24 07:39 O2 Del Method Nasal Cannula 06/22/24 07:39 O2 Flow Rate 3 06/22/24 07:39 Oxygen Flow Rate 3 06/21/24 11:08 BMI result Body Mass Index 34.4 Appearance: Alert.? Oriented X3. cvs: rrr, [id number] , no murmur res: air entry diminshed b/l abd: no rebound or guarding ,nt, bs present. ext pulses present , no cyanosis . neuro: axo3 , nonfocal. Objective Data Active Medications Acetaminophen (Acetaminophen 325 Mg Tablet) 650 mg PO Q6H PRN PRN Reason: Pain, Mild (Pain Scale 1-3), fever or headache Albuterol/Ipratropium (Albuterol/Iprat 2.5/0.5mg 3 Ml Ampul.Neb) 3 ml INHALE RQ4H WHILE AWAKE [facility] Last Admin: 06/22/24 14:07 Dose: 3 ml Documented By: NICOLE Aripiprazole (Aripiprazole 15 Mg Tablet) 15 mg PO DAILY [facility] Last Admin: 06/22/24 09:18 Dose: 15 mg Documented By: RAJWINDER Aspirin (Aspirin Enteric Coated 81 Mg Tablet.) 81 mg PO DAILY [facility] Last Admin: 06/22/24 09:17 Dose: 81 mg Documented By: RAJWINDER Benzonatate (Benzonatate 100 Mg Capsule) 100 mg PO TID PRN PRN Reason: Cough Calcium Carbonate (Calcium Carbonate 750 Mg Tab.Chew) 750 mg PO Q4H PRN PRN Reason: Heartburn Docusate Sodium (Docusate Sodium 100 Mg Capsule) 100 mg PO DAILY PRN PRN Reason: Constipation Enoxaparin Sodium (Enoxaparin Sodium 40 Mg/0.4 Ml Syringe) 40 mg SUBCUT Q24H [facility] Last Admin: 06/21/24 18:16 Dose: 40 mg Documented By: EDISON Fluticasone Propionate (Fluticasone Propionate Nasal 16 Gm [place]) 1 spray NOSTRIL-B BID PRN PRN Reason: Allergies Furosemide (Furosemide 20 Mg Tablet) 20 mg PO DAILY [facility]; Protocol Last Admin: 06/22/24 09:19 Dose: 20 mg Documented By: RAJWINDER Gabapentin (Gabapentin 100 Mg Capsule) 100 mg PO TID [facility] Last Admin: 06/22/24 14:33 Dose: 100 mg Documented By: RAJWINDER Doxycycline Hyclate 100 mg/ (Sodium Chloride) 250 mls @ 166.67 mls/hr IV Q12H [facility] Last Admin: 06/22/24 14:27 Dose: 166.67 mls/hr Documented By: RAJWINDER Lamotrigine (Lamotrigine 100 Mg Tablet) 300 mg PO BEDTIME [facility] Last Admin: 06/21/24 21:23 Dose: 300 mg Documented By: KARAN Lamotrigine (Lamotrigine 100 Mg Tablet) 200 mg PO DAILY [facility] Last Admin: 06/22/24 09:17 Dose: 200 mg Documented By: RAJWINDER Magnesium Hydroxide (Milk Of Magnesia 30 Ml Oral.Susp) 30 ml PO DAILY PRN PRN Reason: Constipation Magnesium Oxide (Magnesium Oxide 400 Mg Tablet) 400 mg PO BID [facility] Last Admin: 06/22/24 09:17 Dose: 400 mg Documented By: RAJWINDER Melatonin (Melatonin 3 Mg Tablet) 6 mg PO BEDTIME PRN PRN Reason: Insomnia Methylprednisolone Sodium Succinate (Methylprednisolone Sod Succ 40 Mg/Ml Vial) 40 mg IVPUSH Q12H [facility] Last Admin: 06/22/24 13:09 Dose: 40 mg Documented By: RAJWINDER Metoprolol Succinate (Metoprolol Succinate Er 50 Mg Tab.Er.24h) 50 mg PO DAILY [facility]; Protocol Last Admin: 06/22/24 09:19 Dose: 50 mg Documented By: RAJWINDER Mirtazapine (Mirtazapine 15 Mg Tablet) 15 mg PO BEDTIME [facility] Last Admin: 06/21/24 21:24 Dose: 15 mg Documented By: KARAN Montelukast Sodium (Montelukast Sodium 10 Mg Tablet) 10 mg PO BEDTIME [facility] Last Admin: 06/21/24 21:23 Dose: 10 mg Documented By: KARAN Omeprazole (Omeprazole 20 Mg Capsule.) 20 mg PO DAILY [facility] Last Admin: 06/22/24 09:17 Dose: 20 mg Documented By: RAJWINDER Ondansetron HCl (Ondansetron Hcl 4 Mg/2 Ml Vial) 4 mg IVPUSH Q8H PRN PRN Reason: Nausea and Vomiting Senna (Sennosides 8.6 Mg Tablet) 8.6 mg PO BEDTIME [facility] Last Admin: 06/21/24 21:23 Dose: 8.6 mg Documented By: KARAN Sodium Chloride (0.9 % Sodium Chloride Flush 3 Ml Syringe) 3 ml IVFLUSH QSHIFT [facility] Last Admin: 06/22/24 09:19 Dose: 3 ml Documented By: RAJWINDER Theophylline (Theophylline Anhydrous Er 400 Mg Tab.Er.24h) 200 mg PO BID [facility] Last Admin: 06/22/24 09:18 Dose: 200 mg Documented By: RAJWINDER Vilazodone HCl (Vilazodone Hcl 40 Mg Tablet) 40 mg PO DAILY [facility] Last Admin: 06/22/24 09:17 Dose: 40 mg Documented By: RAJWINDER Vitamin D (Cholecalciferol (Vitamin D3) 25 Mcg Tablet) 50 mcg PO DAILY [facility] Last Admin: 06/22/24 09:17 Dose: 50 mcg Documented By: RAJWINDER Labs 06/21/24 11:38 06/21/24 11:38 Assessment and Plan (1) Chronic hypoxic respiratory failure: Status: Acute (2) COPD exacerbation: Status: Acute Plan 68-year-old female with a PMH significant for end stage COPD on 3L [place] at rest and 6L with activity, chronic hypoxic and hypercarbic respiratory failure on Triology at night, follows with Dr. Acharya?in pulmonology, HTN, hx of tracheostomy, osteoporosis, and mood disorder who presents to the ED from pulmonary rehab with worsening SOB, difficulty breathing, and unable to complete rehab activities today. Pt will be admitted to the hospital for treatment and further evaluation of acute on chronic hypoxic and hypercarbic respiratory failure in the setting of acute COPD exacerbation. Acute on chronic hypoxic and hypercarbic respiratory failure in the setting of acute COPD exacerbation Patient with increased SOB, FERNANDEZ, productive cough CXR negative for acute cardiopulmonary disease Will empirically cover with doxycycline, started 06/21/2024,[place], Solu-Medrol Titrate supplemental O2 to >90, wean as tolerated Continue home inhalers Patient on home 3L at rest and 6L with exertion Pulmonology consult Elevated BNP BNP mildly elevated 169, up from 91 on 04/13/2022 Was given Lasix 20mg IV in the ED Echo on 10/06/2021 showed LVEF hyperdynamic at >70% with mild mitral annular classification but no obvious valvular pathology Continue compression stockings, home furosemide Will get new echocardiogram Nighttime ventilator Pt on Triology at night Will order nighttime BiPAP Mood disorder Continue home mood stabalizers HTN Continue metoprolol Full Code DVT Prophylaxis: Lovenox ongoing hospitalization need for treatment of?acute on chronic hypoxic and hypercarbic respiratory failure in the setting of acute COPD exacerbation. Patient required hospitalization for administration of IV steroids, breathing treatments, and close monitoring respiratory status. Quality Stroke Does the patient have a stroke diagnosis?: No VTE Prior VTE?: No VTE Risk Level:: Medical - moderate - high VTE Device Contraindication: Treatment Not Indicated VTE Drug Contraindication: N/A - Med Ordered
[2024-06-22] MEDS: Enoxaparin Sodium 40 MG/0.4 ML SYRINGE SUBCUT (16:15)
[2024-06-22] MEDS: Furosemide 20 MG/2 ML VIAL IVPUSH (16:16)
[2024-06-22] MEDS: Mirtazapine 15 MG TABLET PO (20:17)
[2024-06-22] MEDS: lamoTRIgine 100 MG TABLET 300 MG PO (20:17)
[2024-06-22] MEDS: Montelukast Sodium 10 MG TABLET PO (20:18)
[2024-06-22] MEDS: Sennosides 8.6 MG TABLET PO (20:18)
[2024-06-23] MEDS: Acetaminophen 325 MG TABLET 650 MG PO (00:51)
[2024-06-23] MEDS: methylPREDNISolone Sod Succ 40 MG/ML VIAL IVPUSH ×2 (01:31→13:18)
[2024-06-23] MEDS: Doxycycline Hyclate 100 MG in 0.9 % Sodium Chloride 250 ML 166.67 MG IV (01:32)
[2024-06-23 07:46] VITALS: BP 155/65; PULSE 67; RESP 18; TEMP 36.3; O2SAT 95
[2024-06-23] MEDS: Albuterol/Iprat 2.5/0.5MG 3 ML AMPUL.NEB INHALE ×2 (07:47→11:28)
[2024-06-23 07:49] VITALS: PULSE 66; RESP 16; O2SAT 97
[2024-06-23] MEDS: Omeprazole 20 MG CAPSULE.DR PO (08:21)
[2024-06-23] MEDS: Vilazodone HCL 40 MG TABLET PO (08:21)
[2024-06-23] MEDS: Magnesium Oxide 400 MG TABLET PO (08:21)
[2024-06-23] MEDS: Theophylline Anhydrous ER 400 MG TAB.ER.24H 200 MG PO (08:21)
[2024-06-23] MEDS: Furosemide 20 MG/2 ML VIAL IVPUSH (08:21)
[2024-06-23] MEDS: Gabapentin 100 MG CAPSULE PO (08:22)
[2024-06-23] MEDS: Aspirin Enteric Coated 81 MG TABLET.DR PO (08:22)
[2024-06-23] MEDS: Cholecalciferol (Vitamin D3) 25 MCG TABLET 50 MCG PO (08:22)
[2024-06-23] MEDS: lamoTRIgine 100 MG TABLET 200 MG PO (08:22)
[2024-06-23] MEDS: Benzonatate 100 MG CAPSULE PO (08:22)
[2024-06-23] MEDS: ARIPiprazole 15 MG TABLET PO (08:22)
[2024-06-23] MEDS: Metoprolol Succinate ER 50 MG TAB.ER.24H PO (08:22)
[2024-06-23] MEDS: 0.9 % Sodium Chloride Flush 3 ML SYRINGE IVFLUSH (08:29)
[2024-06-23] MEDS: Loratadine 10 MG TABLET PO (09:07)
--- NOTE | 2024-06-23 10:20 | PM.DS ---
DS: Providers Provider Date of Service: 06/23/24 Date of admission: 06/21/24 16:18 Date of discharge: 06/23/24 Primary care physician: Janice Núñez MD Consults: 06/21/24 16:15 Consult to Pulmonology Routine Consulting Provider: [facility] Pulmonology [facility] Reason for consultation: COPD exacerbation, end stage COPD Attending physician on discharge: Kelly Pruett Discharging clinician: Kelly Pruett DS: Diagnosis Discharge Diagnosis (1) Chronic hypoxic respiratory failure: Status: Acute (2) COPD exacerbation: Status: Acute DS: Summary Hospital Course Hospital Course: 68-year-old female with a PMH significant for end stage COPD on 3L NC at rest and 6L with activity, chronic hypoxic and hypercarbic respiratory failure on Triology at night, follows with Dr. Acharya?in pulmonology, HTN, hx of tracheostomy, osteoporosis, and mood disorder who presents to the ED from pulmonary rehab with worsening SOB, difficulty breathing, and unable to complete rehab activities today. Also complains of increased cough productive of greenish sputum and chest tightness associated with cough. Denies fever, chills, nausea, vomiting. No abdominal pain. Denies urinary symptoms. Of note, pt fell at SNF in November and fractured multiple ribs. Currently is residing in a detention. ? In the ED pt was tachypneic up to 22 and initially hypertensive up to 176/68. Labs were significant for mild elevated BNP of 169, otherwise grossly unremarkable and around baseline for pt. No leukocytosis. Stable H&H. No significant electrolyte abnormalities. Renal and hepatic function WNL. VB pH 7.42 with pCO2 70 and bicarb 46. CXR showed no acute cardiopulmonary disease. EKG demonstrated normal sinus rhythm with no evidence of significant ST elevations or depressions. Pt was treated with DuoNebs, Solu-Medrol, furosemide 20 mg, and doxycycline. Pt will be admitted to the hospital for treatment and further evaluation of acute on chronic hypoxic and hypercarbic respiratory failure in the setting of acute COPD exacerbation. Hospital course: Patient came to the hospital because of shortness of breath found to have acute on chronic hypoxemic/hypercarbic respiratory failure: Started on nebs, steroids, antibiotics, cough medication-patient seems to be improved, BNP slightly elevated, echo seems The left ventricular systolic function is hyperdynamic. visually estimated ejection fraction is >70%. Patient seems to be improved to her baseline, she uses 3 L oxygen at rest and 6 L with exertion. Patient will be going home: Complete prednisone 40 mg for 4 days, cough medication, also patient requested for scheduled albuterol which is changed. doxycycline 100 mg po bid x5 days Follow up with Pulmonary outpatient. Above management discussed with the patient detail length she understand and in agreement with the plan, time spent 40 minute. Time Attestation Total time managing care of this patient today: 40 mintues. Discharge Coordination Time (in mins): 40 min Quality: Safe Use of Opioids Does Pt have an Active Cancer Diagnosis on the Problem List?: No Quality: Stroke Does the patient have a stroke diagnosis?: No Physical Exam Vital Signs: Vital Signs: Last Vital Signs Temp 97.3 F 06/23/24 07:46 Pulse 66 06/23/24 07:49 Resp 16 06/23/24 07:49 BP 155/65 H 06/23/24 07:46 Pulse Ox 95 06/23/24 07:46 O2 Del Method Nasal Cannula 06/23/24 07:46 O2 Flow Rate 3 06/23/24 07:46 Oxygen Flow Rate 3 06/21/24 11:08 BMI result Body Mass Index 34.4 Appearance: Alert.? Oriented X3. cvs: rrr, [id number] , no murmur res: air entry fair , no rales or wheezing abd: no rebound or guarding ,nt, bs present. ext pulses present , no cyanosis . neuro: axo3 , nonfocal. DS: Data Data Completed and Pending Completed studies during hospitalization [Text1]: Procedures Assistance with Respiratory Ventilation, Less than 24 Consecutive Hours, Continuous Positive Airway Pressure (04/13/22) Labs on day of discharge: Laboratory Results - last 24 hr 06/23/24 09:08 Hold Purple Top SEE NOTE Imaging Chest x-ray: Radiologist's impression: ITS Impressions Chest X-Ray 06/21/24 11:41 IMPRESSION: No active cardiopulmonary disease. Left upper lobe nodule and left lung base scarring/atelectasis Discharge Plan Discharge Anticipated Discharge Date/Time: 06/23/24 10:09 Patient Disposition: Home, Self-Care Discharge Diagnosis: Acute on chronic hypoxemic respiratory failure secondary to COPD exacerbation Referrals: Janice Núñez MD [Primary Care Provider] - 1 Week Discharge Medications: New loratadine 10 mg Tablet 10 mg PO DAILY Qty: 10 0RF doxycycline hyclate [Doxy-100] 100 mg Recon Soln 100 mg IV Q12H Qty: 10 0RF benzonatate 100 mg Capsule 100 mg PO TID PRN (Reason: Cough) Qty: 10 0RF prednisone 20 mg tablet 40 mg PO DAILY Qty: 8 0RF Continued acetaminophen 500 mg Tablet 1,000 mg PO TID PRN (Reason: Headache) aspirin 81 mg Tablet,Delayed Release (Dr/Ec) 81 mg PO DAILY alendronate [Fosamax] 70 mg Tablet 70 mg PO SA lamotrigine 150 mg Tablet 300 mg PO BEDTIME lamotrigine 200 mg Tablet 200 mg PO DAILY magnesium oxide 400 mg magnesium Tablet 400 mg PO BID montelukast 10 mg Tablet 10 mg PO BEDTIME albuterol sulfate [Proventil HFA] 90 mcg/actuation Hfa Aerosol Inhaler 2 puff INHALATION QID PRN (Reason: Respiratory Distress) cholecalciferol (vitamin D3) [Vitamin D3] 50 mcg (2,000 unit) Capsule 50 mcg PO DAILY mirtazapine 15 mg tablet 15 mg PO BEDTIME metoprolol succinate 50 mg Tablet Extended Release 24 Hr 50 mg PO DAILY docusate sodium 100 mg Capsule 100 mg PO DAILY PRN (Reason: Constipation) Qty: 30 0RF pantoprazole 40 mg tablet,delayed release (DR/EC) 40 mg PO DAILY@0630 Serevent Diskus 50 mcg/dose blister with device 1 inh inhalation BID PRN (Reason: SOB) fluticasone furoate-vilanterol [Breo Ellipta] 200-25 mcg/dose blister with device 1 inh INHALATION DAILY PRN (Reason: SOB) sennosides [Senokot] 8.6 mg tablet 8.6 mg PO BEDTIME aripiprazole 15 mg tablet 15 mg PO DAILY Fish Oil 300-500 mg capsule 1 cap PO TID gabapentin 100 mg capsule 100 mg PO TID theophylline 200 mg tablet extended release 12 hr 200 mg PO Q12H 30 Days Qty: 60 11RF (DME) nebulizers Misc See Rx Instructions .Route Rx Instructions: As directed fluticasone propionate 50 mcg/actuation spray,suspension 1 spray intranasal BID vilazodone 40 mg tablet 40 mg PO DAILY (DME) Oxygen Home Use Kit See Rx Instructions .Route Rx Instructions: As directed furosemide [Lasix] 20 mg tablet 20 mg PO DAILY 3 Days Qty: 3 0RF Changed albuterol sulfate 2.5 mg /3 mL (0.083 %) solution for nebulization 2.5 mg inhalation QID Qty: 30 0RF Discharge Orders: Discharge Order (Routine); Ordered 06/23/24 Ordered By: Kelly Pruett Diet: Advance to usual diet Activity on Discharge: As tolerated Stand Alone Forms: Patient Portal Discharge page Print Language: Ecuadorean Care Plan Goals: Patient came to the hospital because of shortness of breath found to have acute on chronic hypoxemic/hypercarbic respiratory failure: Started on nebs, steroids, antibiotics, cough medication-patient seems to be improved, BNP slightly elevated, echo seems The left ventricular systolic function is hyperdynamic. visually estimated ejection fraction is >70%. Patient seems to be improved to her baseline, she uses 3 L oxygen at rest and 6 L with exertion. Patient will be going home: Complete prednisone 40 mg for 4 days, cough medication, also patient requested for scheduled albuterol which is changed. Follow up with Pulmonary outpatient. Above management discussed with the patient detail length she understand and in agreement with the plan, time spent 40 minute. Health Concerns: As above. Plan of Treatment: As above. Assessment: As above.
[2024-06-23 11:01] VITALS: PULSE 66
[2024-06-23 11:30] VITALS: PULSE 70; RESP 18; O2SAT 96
--- NOTE | 2024-06-23 11:49 | MHC.CM.PN ---
pt returning to alf via ambcoordinated same with robel [phone]
--- NOTE | 2024-06-23 11:54 | MHC.CM.PN ---
dghter notified of pt return to long term
[2024-06-23 12:00] LABS: Blood Urea Nitrogen 17 mg/dL (9-16); Creatinine Clr Calc Pharmacy 53.7; Estimated Glomerular Filt Rate 55
== END 2024-06-23 14:34 | disposition home or self-care (01) | DRG 190 ==
LOC: HO.ED 15:03 → HO.EDOVER 16:50 → HO.S3 06-22 02:04
PROVIDERS: Registered Nurse Emergency; Admitting Provider Student in an Organized Health Care Education/Training Program; Emergency Provider Emergency Medicine; PCP Family Medicine Geriatric Medicine; Visit Provider Internal Medicine
DX: J44.1 Chronic obstructive pulmonary disease with (acute) exacerbation (principal); I50.33 Acute on chronic diastolic (congestive) heart failure; J96.21 Acute and chronic respiratory failure with hypoxia; J96.22 Acute and chronic respiratory failure with hypercapnia; R91.8 Other nonspecific abnormal finding of lung field; I11.0 Hypertensive heart disease with heart failure; Z20.822 Contact with and (suspected) exposure to COVID-19; Z99.81 Dependence on supplemental oxygen; Z87.891 Personal history of nicotine dependence; Z79.82 Long term (current) use of aspirin; Z79.899 Other long term (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 therapy
CPT/HCPCS: 0241U; 36415; 71046; 80053; 82565; 82803; 83880; 84484; 84520; 85025; 85610; 93005; 93306; 94640; 94660; 97162; 99285; J1650; J1940; J2919; Q9957

== ENCOUNTER → 2024-06-21 11:11 | Outpatient (BNV) | payer MEDICARE, MEDICAID, SELFPAY | PROVIDERS: Admitting Provider Student in an Organized Health Care Education/Training Program; Emergency Provider Emergency Medicine; PCP Family Medicine Geriatric Medicine; Visit Provider Internal Medicine | DX: R07.9 Chest pain, unspecified (principal) | CPT/HCPCS: 93010 ==

== ENCOUNTER 2024-06-21 16:18 | Outpatient (BNV) | payer MEDICARE, MEDICAID, SELFPAY | END 2024-06-22 07:00 | PROVIDERS: Admitting Provider Student in an Organized Health Care Education/Training Program; Emergency Provider Emergency Medicine; PCP Family Medicine Geriatric Medicine; Visit Provider Internal Medicine | DX: I34.81 Nonrheumatic mitral (valve) annulus calcification (principal) | CPT/HCPCS: 93306 ==

== ENCOUNTER → 2024-06-21 16:18 | Outpatient (BNV) | payer MEDICARE, MEDICAID, SELFPAY | PROVIDERS: Admitting Provider Student in an Organized Health Care Education/Training Program; Emergency Provider Emergency Medicine; PCP Family Medicine Geriatric Medicine; Visit Provider Student in an Organized Health Care Education/Training Program | DX: J96.11 Chronic respiratory failure with hypoxia (principal); J44.1 Chronic obstructive pulmonary disease with (acute) exacerbation | CPT/HCPCS: 99223; 99231; 99239 ==

== ENCOUNTER → 2024-06-21 16:18 | Outpatient (BNV) | payer MEDICARE, MEDICAID, SELFPAY | PROVIDERS: Admitting Provider Student in an Organized Health Care Education/Training Program; Emergency Provider Emergency Medicine; PCP Family Medicine Geriatric Medicine; Visit Provider Internal Medicine Pulmonary Disease | DX: J43.2 Centrilobular emphysema (principal); J96.11 Chronic respiratory failure with hypoxia | CPT/HCPCS: 99222 ==

== ENCOUNTER 2024-07-06 10:36 | Outpatient (AMB) | payer MEDICARE, MEDICAID, SELFPAY ==
[2024-07-06 10:41] VITALS: PULSE 90; O2SAT 91; BMI 36.8
--- NOTE | 2024-07-06 10:41 | A.OFFVIS_ITS ---
Vital Signs 07/06/24 10:41 Height 5 ft 1 in Weight 195 lb BMI 36.8 Pulse 90 Pulse Source Pulse Oximeter Pulse Oximetry (%) 91 L Oxygen Delivery Method Room Air Comment 3 Liters Oxygen([employer]) Intake Visit Reasons: COPD Client Professional Required: No Allergies codeine [Codeine] Allergy (Intermediate, Verified 07/06/24 10:43) RESTLESS/RASH haloperidol [Haldol] Allergy (Intermediate, Verified 07/06/24 10:43) Palpitations Sulfa (Sulfonamide Antibiotics) Allergy (Intermediate, Verified 07/06/24 10:43) HIVES HPI Comments Details: The patient is a 68-year-old woman with known history of COPD and chronic hypoxic and hypercarbic respiratory failure. She 1st did require a tracheostomy in the past and she had a prolonged hospitalization which she was able to be decannulated. She was then placed on noninvasive ventilation. The patient has been inconsistent with the usage. In January of this year the patient was admitted to the hospital with acute on chronic hypercarbic respiratory failure where her pCO2 was about 118 mmHg.. The patient was placed on noninvasive ventilation and her pH normalize and her average pCO2 was between 60-70. She was discharged to use her trilogy at home. At home she is still struggling with the noninvasive ventilator. She has a hard time getting used to it. Her DME company, [employer] will be performing overnight oximetry with an end-tidal CO2 to measure her see you to into appropriately adjust her noninvasive ventilator. She also has made mentioning that she has been more short of breath and she has had more hypoxia. In the office we did perform a 6 minutes walk test and she did require 2 L nasal cannula to maintain her pulse ox above 90%. Therefore, she will be using 3 L instead of to with activity and also with sleep. 04/15/2023 the patient is here for pulmonary follow-up visit. She still residing at the [facility]. She is using her trilogy noninvasive ventilator every night. However, she has been using more recently because she ended up in the hospital. She was having chest pressure sensation and dizziness. During the hospitalization at [facility] the patient states that she had an ABG done demonstrating a pCO2 58 and per report was okay. Therefore, will hold off on doing an ABG today. The patient has been fairly relatively well from a respiratory status. She does complaint of heaviness of the chest. On examination she is very diminished. Therefore likely has significant air trapping hyperinflation them every resulting in some chest pressure sensation. I did recommend she start using the trilogy with a sip and puff during the daytime to help her with the air trapping. The patient has also gained weight and that is also going to contribute to additional respiratory symptoms. The patient needs to start working on weight management with the help of the services provided. The patient is using her diuretics with good effect. No significant edema at this time. It is not clear if she is using the theophylline. She has been on multiple medications and has got to multiple institutions so therefore it is hard to know if those removed and if it was stopped for particular reason. We should recheck her theophylline levels if she is on theophylline. Otherwise restart the theophylline if she is off it and then recheck levels. She should stay within the low therapeutic range to help her with her severe COPD. Patient is using her oxygen at 3 L continues with good effect. Again, I reached out to the [facility], to rete she had uses sip and puff device that she can use during the daytime 06/17/2023 the patient is here for pulmonary follow-up visit. The patient has been doing well. She is looking now to move to a nursing home. in the meantime she is using her noninvasive ventilator. The noninvasive ventilator has been affecting beneficial. We did have her undergo a venous blood gas in appears that her pH is stable. She understands that if she does move to a nursing home she went to find a way to make sure that she continues use her noninvasive ventilator as prescribed. She continues on respiratory therapy. She continues oxygen supplementation at 3 L could would response. 09/20/2023 the patient has a telehealth visit today. Unfortunately she could not make it in from her residence. She has been more depressed lately. She has recently found out that she lost the services from her [facility]. There been with her for many years. In addition to that the patient has not been using her Trelegy ventilator. She is try to find out how long she can go without it. She was wondering if she can have blood work to see how well her CO2 is while she is not using it. However, I encouraged her to use it since we know that her baseline CO2 is already elevated and by using the ventilator she has better reserved in case she develops an exacerbation or an acute illness. The patient will start using her ventilator at nighttime. I did put him for blood work and she can always have the blood work done here or she can find out another means of doing a. But getting a blood gas will be difficult to do otherwise. The patient did recently have a respiratory illness with a virus. Was not COVID. She was not giving any prednisone or antibiotics. Her cough is not too bad. If the cough worsens with worsening congestion then using a antibiotic to minimize on the postviral bacterial infections would be reasonable. 12/23/2023 the patient is here for a pulmonary follow-up visit. Since we last spoke the patient did have a fall on her snf. She fractured multiple ribs and was admitted to [facility] with acute on chronic hypercarbic respiratory failure. She was placed on BiPAP and was able to stabilize. She did not require invasive ventilation. The patient had not been using her noninvasive ventilator at the snf. This is unfortunate. She understands the with her condition she relies on this therapy. The patient has been using now regularly since she was discharged from the hospital. She is looking to be placed in a nursing home. Therefore, she is making the arrangements. We did have her undergo a venous blood gas today and her acid- base status is stable and pCO2 is back to her baseline. Her bicarbonate always will be elevated to try to compensate for the hypercarbia and right now is at 3 7. she does continue to use her respiratory therapy as prescribed. She is also using oxygen continuously throughout the day with good effect. Once the patient is out of the snf to a nursing home will see about getting pulmonary function studies and starting outpatient pulmonary rehabilitation. Also to note while she was at [facility] she did have a CT scan of the chest that was personally by me. She had multiple rib fractures on the left 1 which was displaced. Also has small subcentimeter pulmonary nodule that will follow-up in a year's time. 02/21/2024 the patient is here for pulmonary follow-up visit. The patient overall has been doing well. She did move out of the snf in currently in a nursing home. She is getting a lot of support. She is taking all her medications. Although, the theophylline 400 mg is not available. I will try sending her a different does see that was available and also will check theophylline levels. The patient has been using her noninvasive ventilator at nighttime. The therapy has been affecting beneficial. We did have her get blood work and it appears that her bicarb is down to 32 which is very encouraging. The patient also has been using her oxygen at 3 L continues will keep a go above 88%. The patient is able to increase it to 4 L if her oxygen is dropping below 88%. Will go ahead and request pulmonary function studies and plan for pulmonary rehabilitation at this time. Will follow-up in 3 months or sooner if any new issues arise. 05/24/2024 the patient is here for a pulmonary follow-up visit. She was recently at [facility]. There was an issue with her oxygen. Now she is back to her nursing home. the having hard time regulating her oxygen. We did have her come in for 6 minute walk test. The patient needs 6 L of oxygen with activity and at least 2 L at rest. Although typically she needs more than 2 to keep her pulse ox above 90%. We did review her CT scan of the chest that she had while at [facility]. She has extensive emphysema which explains her very labile oxygen requirements. In addition to that she does have some pulmonary nodules that appear to have increased in size primarily in the left hemithorax. She will need a repeat CT scan in the next 3 months. She has minimal reserve. We did look at her previous PFTs demonstrating very severe COPD and severe diffusion impairment. however, the patient has been fairly well although she has had although severe disease. She has been using her noninvasive ventilator at nighttime. At least 6 hours. We did have her go for blood work including a venous gas demonstrating appears due to a baseline 61 mm of Hg. The patient does have some lower extremity edema. She will benefit from additional diuresis. In addition to that she is having increased wheezing chest tightness and cough. Therefore will send her a prednisone taper and also start an antibiotic. This will be to treat her for COPD exacerbation. She has partici pating in the pulmonary rehabilitation. She has fine the very affecting beneficial. She will continue for now. 07/06/2024 the patient is here for a pulmonary follow-up visit. She has been in an out of hospital. She has been trying to use her noninvasive ventilator more regularly. She understands it is a necessity for her to use it at least every night. She also continues with respiratory therapy. She has been responding well to the oxygen supplementation. Last blood gas was back the end of May demonstrating a pCO2 around 70 which is close to her baseline. She continues with respiratory therapy with good effect. Appears to have increasing lower extremity edema. Likely secondary to a component I will call pulmonale. Needs to continue with a low sodium diet and diuresis. CXR from 06/21/23 personally reviewed by me without any acute changes. [facility] Medical History Rib fractures Pulmonary nodule Tubular adenoma of colon (~2006) Osteopenia (~2012) Bronchopneumonia Chest pain Chronic respiratory alkalosis ILD (interstitial lung disease) CO2 retention Acute on chronic respiratory failure with hypoxia and hypercapnia Bipolar depression Eczema Limb swelling Insomnia Bronchitis Vasomotor rhinitis COPD (chronic obstructive pulmonary disease) Chronic respiratory failure Fall Acute metabolic encephalopathy Acute and chronic respiratory failure with hypercapnia Surgical History History of carpal tunnel surgery (~2000) History of ventral hernia repair (~2003) History of left inguinal hernia repair (~1995) History of tracheostomy (~2016) History of cataract surgery (~2018) History of colonoscopy Family History Other Hypertension Social History Household Members: Other Household Members Other:: pulmonary rehab Housing: Other Housing Other:: nursing home Are you a primary personal care service provider to a significant other at home: No Do you presently have visiting nurse or other home services: Yes Alcohol intake: unknown Patient Tobacco Use Status: Former Tobacco user Tobacco use type: Cigarette Years Smoked: 20+ years e-Cigarette/Vaping Use: Never Used Second Hand Smoke Exposure: No Advance Directives Date on File: 11/30/21 service: No Current occupational status: disabled Review of Systems Const Reports fatigue, Denies night sweats and Reports weight gain ENT Denies change in voice, Denies lip swelling, Denies mouth pain, Reports nasal congestion, Reports nasal discharge and Denies tongue swelling Card Denies chest pain, Reports pedal edema, Denies leg edema, Reports dyspnea and Reports dyspnea on exertion Resp Denies change in phlegm color, Denies chest congestion, Reports cough, Reports dyspnea, Reports dyspnea on exertion and Reports wheezing GI Denies abdominal pain Musc Denies no additional complaints and Reports abnormal gait Skin/Breast Reports erythema and Reports skin swelling Neuro Denies Neuro-related abnormal movements, Reports abnormal gait, Reports memory loss and Reports tremor(s) Psych Reports depression and Reports memory loss Endo Reports fatigue Gerson/Lymph Denies easy bleeding and Denies lymphadenopathy Aller/Immun Denies lip swelling, Denies tongue swelling and Reports wheezing Physical Exam Vital Signs: Last Vital Signs Pulse 90 07/06/24 10:41 Pulse Ox 91 L 07/06/24 10:41 Oxygen Delivery Method Room Air 07/06/24 10:41 BMI result Body Mass Index 36.8 Last Vital Signs Temp 98.2 F 04/15/22 15:12 Pulse 97 04/15/22 15:26 Resp 18 04/15/22 15:26 BP 144/69 H 04/15/22 15:12 Pulse Ox 94 04/15/22 15:12 Oxygen Flow Rate 3 04/13/22 08:52 BMI result Body Mass Index 31.3 Const General: alert Neck Neck: Yes normal visual inspection, Yes full ROM and Yes no lymphadenopathy Chest Chest palpation & inspection: normal inspection of the chest Resp Effort & Inspection: normal respiratory effort and prolonged expiratory phase Auscultation: diminished lung sounds Cardio Rate: regular rate Rhythm: regular rhythm Heart sounds: S1 normal heart sound present and S2 normal heart sound present GI Palpation (GI): Soft to palpation and nontender Auscultation: normal bowel sounds Skin General skin exam: rashes and/or lesions noted Assessment & Plan Assessment & Plan (1) COPD (chronic obstructive pulmonary disease): Code(s): J44.9 - Chronic obstructive pulmonary disease, unspecified Category: Medical Qualifiers: COPD type: emphysema Emphysema type: centrilobular Qualified Code(s): J43.2 - Centrilobular emphysema (2) Chronic respiratory failure: Code(s): J96.10 - Chronic respiratory failure, unspecified whether with hypoxia or hypercapnia Category: Medical Qualifiers: Respiratory failure complication: hypoxia and hypercapnia Qualified Code(s): J96.11 - Chronic respiratory failure with hypoxia; J96.12 - Chronic respiratory failure with hypercapnia (3) Insomnia: Code(s): G47.00 - Insomnia, unspecified Category: Medical Qualifiers: Insomnia type: primary Qualified Code(s): F51.01 - Primary insomnia (4) Pulmonary nodule: Code(s): R91.1 - Solitary pulmonary nodule Category: Medical (5) Respiratory failure: Code(s): J96.90 - Respiratory failure, unspecified, unspecified whether with hypoxia or hypercapnia Category: Medical Qualifiers: Chronicity: chronic Respiratory failure complication: hypoxia and hypercapnia Qualified Code(s): J96.11 - Chronic respiratory failure with hypoxia; J96.12 - Chronic respiratory failure with hypercapnia Plan continue nighttime noninvasive ventilator use. Current setting seem to be appropriate, AVAPSE while sleeping continue Breo continue Incruse Bloodwork, venous gas continue respiratory therapy Increase oxygen at 3 liters/minute at rest and 6L/minute with activity weight management Additional lasix 20mg daily x 3 days prednisone taper continue pulmonary rehab Will need a f/u CT chest in 3 months F/U 3 months Orders: Orders CT chest wo IV con 1 Month R91.1 - Solitary pulmonary nodule Medications: New prednisone PO daily; Take 2 tab daily x 5 days, then 1 tab daily x 10 days, 1 tab every other day x 20 days 30 tabs 0RF 35 days Changed From furosemide 20 mg PO DAILY 3 days 3 tabs 0RF To furosemide (Lasix) 20 mg PO DAILY 7 tabs 0RF 7 days From albuterol sulfate 2.5 mg (3 mL) inhalation QID 30 mL 0RF SOB/Wheezing J96.11 - Chronic respiratory failure with hypoxia, J43.2 - Centrilobular emphysema To albuterol sulfate 2.5 mg (3 mL) inhalation QID 360 mL 12RF 30 days J96.11 - Chronic respiratory failure with hypoxia, J43.2 - Centrilobular emphysema Coding Level of Care Code Est Pt Level 5 (65545) Complex EM visit Add On G2211 Diagnoses Centrilobular emphysema J43.2 COPD type: emphysema Emphysema type: centrilobular Chronic respiratory failure with hypoxia and hypercapnia J96.11; J96.12 Respiratory failure complication: hypoxia and hypercapnia Primary insomnia F51.01 Insomnia type: primary Pulmonary nodule R91.1 Chronic respiratory failure with hypoxia and hypercapnia J96.11; J96.12 Chronicity: chronic Respiratory failure complication: hypoxia and hypercapnia Time Spent (min) 20
== END 2024-07-06 11:14 | disposition home or self-care (01) ==
PROVIDERS: PCP Family Medicine Geriatric Medicine; Visit Provider Hospitalist
DX: J43.2 Centrilobular emphysema (principal); J96.11 Chronic respiratory failure with hypoxia; J96.12 Chronic respiratory failure with hypercapnia; F51.01 Primary insomnia; R91.1 Solitary pulmonary nodule
CPT/HCPCS: 99214; G2211

== ENCOUNTER → 2024-07-06 10:36 | Outpatient (BNVA) | payer MEDICARE, MEDICAID, SELFPAY | PROVIDERS: PCP Family Medicine Geriatric Medicine; Visit Provider Hospitalist | DX: J43.2 Centrilobular emphysema (principal); J96.11 Chronic respiratory failure with hypoxia; J96.12 Chronic respiratory failure with hypercapnia; R91.1 Solitary pulmonary nodule; F51.01 Primary insomnia; Z99.81 Dependence on supplemental oxygen | CPT/HCPCS: 99212 ==

== ENCOUNTER 2024-07-24 16:15 | Outpatient (REF) | payer MEDICARE, MEDICAID, SELFPAY ==
[2024-07-24 17:54] LABS: ABG Base Excess 19.4 mmol/L; ABG HCO3 47 mmol/L (22-26); ABG pH 7.42 (7.35-7.45); ABG pO2 84 mmHg (83-108)
[2024-07-24 20:27] LABS: ABG pCO2 71 mmHg (32-45)
[2024-07-24 21:18] LABS: ABG Refer to POC result
== END 2024-07-24 16:16 | disposition home or self-care (01) ==
LOC: HO.LAB 16:15
PROVIDERS: PCP Student in an Organized Health Care Education/Training Program; Visit Provider Hospitalist
DX: J96.11 Chronic respiratory failure with hypoxia (principal)
CPT/HCPCS: 82803

== ENCOUNTER 2024-07-27 13:55 | Inpatient (IN) | payer MEDICARE, MEDICAID, SELFPAY ==
[2024-07-27] VITALS (10 sets, daily range): BP systolic 138–168; BP diastolic 52–92; PULSE 64–81; RESP 13–22; TEMP 36.3–36.8; O2SAT 88–100; BMI 37.0; BMI 37.5
--- NOTE | ~2024-07-27 | CT_ITS ---
EXAMINATION: CT ANGIOGRAM CHEST, PE STUDY CLINICAL INFORMATION: SOB, recent COVID+ COMPARISON: None. TECHNIQUE: A noncontrast localizer was performed, followed by the administration of 60 mL Omnipaque [address] of the chest was then performed. Coronal and sagittal reformatted and 3-D technique MIP images of the chest were completed at the CT scanner and reviewed on the PACS workstation. No adverse effects were reported. [This CT examination was performed using dose optimization techniques as appropriate, variously including the following: *Automated exposure control *Adjustment of mA and/or kV according to patient size (this includes techniques or standardized protocols for targeted exams where dose is matched to indication/reason for exam; i.e. extremities or head) *Use of iterative reconstruction technique] DLP: 270 mGy-cm. FINDINGS: VASCULAR: The main pulmonary artery, secondary and tertiary branches of the pulmonary artery are normally opacified with no evidence of pulmonary embolism. No aneurysm of aorta. There are vascular wall calcifications of the aorta. MEDIASTINUM: No mediastinal mass. No significant lymphadenopathy. Heart size is prominent. No pericardial effusion. CORONARY ARTERIES: Volume of coronary calcification:None LUNGS: Marked emphysematous change of lungs. Irregular patchy airspace opacity in the subpleural lung in the left upper lobe. This is new since exam March 01, 2022. May be inflammatory or infectious in etiology. FLUID: There is no pericardial effusion. There is no pleural effusion. AXILLA: No significant lymphadenopathy. UPPER ABDOMEN: Adrenal glands normal. Visualized portions of liver and spleen unremarkable. SKELETAL: No suspicious focal bone finding. Multilevel degenerative spondylosis of the spine. CT/CT angio chest PE protocol IMPRESSION: 1. No evidence of pulmonary embolism. 2. Marked emphysematous change of lungs. 3. Irregular patchy airspace opacity in the subpleural lung in the left upper lobe. This is new since exam March 01, 2022. May be inflammatory or infectious in etiology. Consider short-term follow-up imaging. Electronically signed by: Nicholas Gtz MD 07/27/2024 06:36 PM EDT
--- NOTE | 2024-07-27 14:17 | ECG_ITS ---
Test Reason : SOB Blood Pressure : / mmHG Vent. Rate : 077 BPM Atrial Rate : 077 BPM P-R Int : 166 ms QRS Dur : 078 ms QT Int : 374 ms P-R-T Axes : -19 060 033 degrees QTc Int : 423 ms Sinus rhythm with Premature atrial complexes Septal infarct , age undetermined Abnormal ECG When compared with ECG of 21-JUN-2024 11:13, Premature atrial complexes are now Present Referred By: Generic ED Physician Electronically Signed By:SHANE NOVA
[2024-07-27 14:44] LABS: MANUAL DIFF FLAG NO
[2024-07-27 14:49] LABS: Basophils Percent Auto 0.7 % (0-2); Hematocrit 36.1 % (37.0-47.0); Hemoglobin 11.2 g/dl (12.0-16.0); Imm Gran Abs Auto 0.05 X10*3/uL (0.00-0.03); Imm Gran Pct Auto 0.9 % (0.0-0.4); Lymphocytes Absolute Auto 0.3 X10*3/uL (1.2-4.9); Lymphocytes Percent Auto 5.4 % (20-40); Mean Corpuscular Hemoglobin 29.7 pg (27.0-33.0); Mean Corpuscular Volume 95.8 fL (80.0-98.0); Mean Platelet Volume 8.9 fL (9.4-12.3); Monocytes Absolute Auto 0.2 X10*3/uL (0.1-1.2); Monocytes Percent Auto 3.8 % (2-11); Neutrophils Absolute Auto 5.1 x10*3/uL (2.0-8.3); Neutrophils Percent Auto 89.2 % (45-73); Platelet Count 313 X10*3/uL (160-400); Red Blood Count 3.77 X10*6/uL (4.20-5.50); Red Cell Distribution Width 14.5 % (11.0-16.0); White Blood Count 5.8 X10*3/uL (4.8-10.8)
[2024-07-27 14:51] LABS: VBG Base Excess 22.4 mmol/L; VBG HCO3 51 mmol/L (22-26); VBG pCO2 81 mmHg; VBG pO2 103 mmHg
[2024-07-27 14:58] LABS: Venous Blood Gas Refer to POC result
--- NOTE | 2024-07-27 15:03 | ED_ITS ---
HPI - General Adult General Chief complaint: Dyspnea Stated complaint: DIZZY SOB Time Seen by Provider: 07/27/24 15:02 Source: patient and EMS Mode of arrival: EMS Limitations: no limitations History of Present Illness ED Provider: Megha Espinosa PA-C HPI narrative: Patient is a 69 year old assigned female at with a history of COPD on 2 liters of oxygen at baseline presenting to the emergency department today with worsening shortness of breath. Patient states that 2 weeks ago she was diagnosed with COVID but last night she began to feel much more short of breath and was struggling to breathe. Patient denies any dizziness, lightheadedness, abdominal pain, nausea, vomiting, fever, chills, blurry vision, double vision, loss of vision, chest pain, back pain, night sweats, pain with urination, increased urinary frequency, increased urinary urgency, blood in her urine or stool, syncope or a near syncopal episode, recent trauma or falls, bowel incontinence, bladder incontinence, or any other complaints at this time. Onset (ago): day(s) Relieving factors: none Exacerbating factors: none Associated symptoms: shortness of breath Treatments prior to arrival: none Related Data Home Medications ?Medication ?Instructions ?Recorded ?Confirmed acetaminophen 500 mg tablet 1,000 mg PO Q8H PRN Headache 02/09/21 07/27/24 albuterol sulfate 90 mcg/actuation 2 puff inhalation QID PRN 02/09/21 07/27/24 aerosol inhaler (Proventil HFA) Respiratory Distress alendronate 70 mg tablet (Fosamax) 70 mg PO SA 02/09/21 07/27/24 aspirin 81 mg tablet,delayed 81 mg PO DAILY 02/09/21 07/27/24 release cholecalciferol (vitamin D3) 50 50 mcg PO DAILY 02/09/21 07/27/24 mcg (2,000 unit) capsule (Vitamin D3) lamotrigine 150 mg tablet 300 mg PO BEDTIME 02/09/21 07/27/24 lamotrigine 200 mg tablet 200 mg PO DAILY 02/09/21 07/27/24 montelukast 10 mg tablet 10 mg PO BEDTIME 02/09/21 07/27/24 mirtazapine 15 mg tablet 15 mg PO BEDTIME 09/10/21 07/27/24 sennosides 8.6 mg tablet (Senokot) 8.6 mg PO BEDTIME 09/10/21 07/27/24 metoprolol succinate 50 mg 50 mg PO DAILY 11/18/21 07/27/24 tablet,extended release 24 hr aripiprazole 15 mg tablet 10 mg PO DAILY 11/02/22 07/27/24 omega-3 fatty acids-fish oil 300 1 cap PO BID 11/02/22 07/27/24 mg-500 mg capsule (Fish Oil) Oxygen Home Use 04/15/23 05/17/24 fluticasone propionate 50 1 spray intranasal DAILY Allergies 04/15/23 07/27/24 mcg/actuation nasal spray,suspension nebulizers 04/15/23 05/17/24 vilazodone 40 mg tablet 40 mg PO DAILY 04/15/23 07/27/24 gabapentin 100 mg capsule 100 mg PO TID 09/20/23 07/27/24 fluticasone furoate 200 1 inh inhalation DAILY SOB 06/21/24 07/27/24 mcg-vilanterol 25 mcg/dose inhalation powder (Breo Ellipta) pantoprazole 40 mg tablet,delayed 40 mg PO DAILY@0630 06/21/24 07/27/24 release salmeterol 50 mcg/dose blister 1 inh inhalation BID SOB 06/21/24 07/27/24 powder for inhalation (Serevent Diskus) albuterol sulfate 2.5 mg/3 mL 2.5 mg inhalation Q6H PRN 07/27/24 07/27/24 (0.083 %) solution for nebulization Shortness Of Breath Or Wheezing benzonatate 100 mg capsule 100 mg PO Q8H PRN Cough 07/27/24 07/27/24 betamethasone dipropionate 0.05 % 1 appl topical Q12H PRN Dermititis 07/27/24 07/27/24 topical cream calcium carbonate 500 mg-vitamin 1 tab PO BID 07/27/24 07/27/24 D3 5 mcg (200 unit) tablet (Calcium 500 + D) cyclobenzaprine 5 mg tablet 5 mg PO Q8H PRN Muscle Pain 07/27/24 07/27/24 diclofenac sodium 1 % topical gel 1 g topical Q8H PRN Pain 07/27/24 07/27/24 docusate sodium 100 mg capsule 100 mg PO DAILY Constipation 07/27/24 07/27/24 fluocinolone acetonide oil 0.01 % 4 drp otic (ears) Q48H 07/27/24 07/27/24 ear drops (DermOtic Oil) ibuprofen 600 mg tablet 600 mg PO Q8H PRN Muscle Pain 07/27/24 07/27/24 lactulose 10 gram/15 mL oral 30 ml PO DAILY PRN Constipation 07/27/24 07/27/24 solution meloxicam 15 mg tablet 15 mg PO DAILY 07/27/24 07/27/24 theophylline 200 mg 200 mg PO BID 07/27/24 07/27/24 tablet,extended release,12 hr tramadol 50 mg tablet 50 mg PO Q6H PRN Pain 07/27/24 07/27/24 Previous Rx's ?Medication ?Instructions ?Recorded furosemide 20 mg tablet (Lasix) 20 mg PO DAILY 7 days #7 tabs 07/06/24 albuterol sulfate 2.5 mg/3 mL 2.5 mg (3 mL) inhalation QID 30 07/09/24 (0.083 %) solution for nebulization days #360 mL Allergies Allergy/AdvReac Type Severity Reaction Status Date / Time codeine [Codeine] Allergy Intermediate RESTLESS/RA Verified 07/27/24 14:10 SH haloperidol [Haldol] Allergy Intermediate Palpitation Verified 07/27/24 14:10 s Sulfa (Sulfonamide Allergy Intermediate HIVES Verified 07/27/24 14:10 Antibiotics) Review of Systems 2 Constitutional: Constitutional: Reports no additional constitutional complaints, Denies chills, Denies fever(s) and Denies night sweats Eyes: Eyes: Reports no additional eye complaints, Denies blurry vision, Denies change in vision, Denies diplopia, Denies eye discharge, Denies loss of vision and Denies eye pain ENT: Denies dizziness Cardiovascular: Cardiovascular: Reports no additional cardiovascular complaints, Denies chest pain, Denies lightheadedness, Denies Loss of Consciousness and Reports dyspnea Respiratory: Respiratory: Reports no additional respiratory complaints and Reports dyspnea Gastrointestinal: Gastrointestinal: Reports no additional gastrointestinal complaints, Denies abdominal pain, Denies melena, Denies hematochezia, Denies change in bowel habits and Denies change in stool character Genitourinary: Genitourinary: Denies hematuria, Denies urinary frequency, Denies dysuria, Denies urinary incontinence, Denies urinary hesitancy and Denies urinary urgency Musculoskeletal: Musculoskeletal: Reports no additional musculoskeletal complaints, Denies numbness and Denies tingling Neurologic: Denies dizziness, Denies loss of vision, Denies numbness and Denies tingling Psychiatric: Psychiatric: Reports no additional psychiatric complaints Endocrine: Endocrine: Reports no additional endocrine complaints Hematologic/Lymphatic: Hematologic/Lymphatic: Reports no additional hematologic/lymphatic complaints Allergic/Immunologic: Allergic/Immunologic: Reports no additional allergic/immunologic complaints [facility] Past Medical History Attestation statement: The following information was validated with the patient. Source: old records reviewed and nursing notes reviewed Medical History Rib fractures Pulmonary nodule Tubular adenoma of colon (~2006) Osteopenia (~2012) Bronchopneumonia Chest pain Chronic respiratory alkalosis ILD (interstitial lung disease) CO2 retention Acute on chronic respiratory failure with hypoxia and hypercapnia Bipolar depression Eczema Limb swelling Insomnia Bronchitis Vasomotor rhinitis COPD (chronic obstructive pulmonary disease) Chronic respiratory failure Fall Acute metabolic encephalopathy Acute and chronic respiratory failure with hypercapnia Surgical History History of carpal tunnel surgery (~2000) History of ventral hernia repair (~2003) History of left inguinal hernia repair (~1995) History of tracheostomy (~2016) History of cataract surgery (~2018) History of colonoscopy Family History Family History Other Hypertension Social History Social History Household Members: Other Household Members Other:: pulmonary rehab Housing: Other Housing Other:: custodial Are you a primary personal care attendant to a significant other at home: No Do you presently have visiting nurse or other home services: Yes Alcohol intake: unknown Patient Tobacco Use Status: Former Tobacco user Tobacco use type: Cigarette Years Smoked: 20+ years Smoked in Last 30 Days: No e-Cigarette/Vaping Use: Never Used Second Hand Smoke Exposure: No Use of substances other than those prescribed or required for medical reasons: No Advance Directives: Yes Advance Directives on File: Yes Advance Directives Date on File: 11/30/21 Do you have a plan to hurt others: No Plan service: No Current occupational status: disabled Physical Exam ED Vital Signs: Vital Signs - 24 hr 07/27/24 14:00 07/27/24 14:05 07/27/24 15:00 Temperature 98.3 F Pulse Rate 80 78 75 Respiratory Rate 18 20 Blood Pressure 147/52 H Pulse Oximetry 88 L 92 95 Oxygen Delivery Method Nasal Cannula Nasal Cannula Nasal Cannula Oxygen Flow Rate 2 3 07/27/24 15:19 07/27/24 16:00 07/27/24 19:05 Temperature 98.3 F Pulse Rate 78 80 74 Respiratory Rate 22 H 18 20 Blood Pressure 148/65 H 145/92 H Pulse Oximetry 100 98 Oxygen Delivery Method Room Air Nasal Cannula Oxygen Flow Rate 3 BMI result Body Mass Index 37.0 Const General: cooperative, no acute distress, alert and awake Nutritional Appearance: well nourished Orientation/consciousness: patient oriented x3 Limitations: no limitations HENMT Head: Yes normal to inspection and Yes atraumatic Ears: hearing grossly normal bilaterally and external ears normal General nose exam: Normal external nose present, no nasal discharge noted and no epistaxis Face and sinus: Yes normal facial exam, No abrasion and No laceration Mouth: Normal oral and palatal mucosa present, no drooling and no muffled voice Eyes General: appearance normal, both eyes and all related structures Periorbital: periorbital findings normal Eyelids: Yes eyelids normal Conjunctivae: conjunctivae normal Pupils: Equal, round and reactive pupils present EOM: EOMs intact bilaterally Neck Neck: Yes normal visual inspection, Yes full ROM and Yes no lymphadenopathy Chest Chest palpation & inspection: normal inspection of the chest Resp Other: on 2 liters of oxygen at baseline Effort & Inspection: able to speak in complete sentences and labored Auscultation: wheezes scattered wheezes GI Inspection: Yes normal to inspection Neuro General: patient oriented x3 and moves all extremities Cranial nerves: Yes Equal, round and reactive pupils present Cognition (Neuro): normal cognition Extrem General: Yes normal to inspection, Yes full ROM and Yes capillary refill normal Psych Appearance: grossly normal Mental Status: mental status grossly normal Affect: normal affect Attitude: cooperative Thought process: Normal thought process present Thought content: Normal thought content present Insight: Good insight present (Psych) Medications Administered Generic Name Dose Route Start Last Admin Trade Name Freq PRN Reason Stop Dose Admin Enoxaparin Sodium 40 mg 07/27/24 20:00 07/27/24 20:55 Enoxaparin Sodium 40 Mg/0.4 Ml Syringe SUBCUT 40 mg Q24H ALYSSA Administration Discontinued Medications Generic Name Dose Route Start Last Admin Trade Name Maximilian PRN Reason Stop Dose Admin Albuterol Sulfate 2.5 mg/ 0 mg 07/27/24 15:15 07/27/24 15:19 Albuterol/Ipratropium 3 ml INHALE 07/27/24 15:16 1 dose ONCE ONE Administration Acetaminophen 1,000 mg in 100 mls @ 400 mls/hr 07/27/24 18:35 07/27/24 19:04 Ofirmev IV 07/27/24 18:49 Infused ONCE ONE Infusion Azithromycin 500 mg/ Sodium 250 mls @ 125 mls/hr 07/27/24 18:52 07/27/24 19:41 Chloride IV 07/27/24 20:51 125 mls/hr ONCE ONE Administration Ceftriaxone Sodium 1 gm/ 50 mls @ 100 mls/hr 07/27/24 18:52 07/27/24 19:42 Sodium Chloride IV 07/27/24 19:21 Infused ONCE ONE Infusion Iohexol 100 ml 07/27/24 16:42 07/27/24 16:42 Iohexol 350 Mg/Ml 100 Ml Infus..Btl IV 07/27/24 16:43 60 ml ONCE ONE Administration Methylprednisolone Sodium Succinate 60 mg 07/27/24 15:02 07/27/24 15:10 Methylprednisolone Sod Succ 125 Mg/2 Ml Vial IVPUSH 07/27/24 15:03 60 mg ONCE ONE Administration Medical Decision Making Medical Decision Making [facility] Narrative: Patient is a 69 year old assigned female at with a history of COPD on 2 liters at baseline presenting to the emergency department today with worsening shortness of breath. Patient's physical exam was as noted in the physical exam portion of this note. Patient's blood work showed an elevated CO level of 43 which is chronic for the patient. Patient's urine showed no acute process. Patient's EKG was unremarkable. Patient's CTA chest showed a probable left upper lobe PNA. Patient's initial SPO2 was 88% on her normal 2 liters. Patient was adjusted to 4lpm of oxygen and given a breathing treatment + steroids which she stated helped her symptoms. Patient's clinical presentation is not consistent with sepsis (@1900). I explained my physical exam findings as well as all test results to the patient. I answered all questions asked by the patient. Patient verbalized agreement and understanding with this treatment plan and admission. Differential Diagnosis Differential Diagnoses: The differential diagnosis associated with the presentation includes PNA COPD Hypoxia Admission/Observation Consideration of admission/observation: Escalation of care including admission/observation considered Patient admitted. Consult Healthcare Provider Management of the patient was discussed with: Hospitalist (agreed to admission as noted in the MDM Rationale portion of this note.) Lab Data [facility] Lab Attestation statement: I reviewed the patient's lab results. My interpretation of these results are in the MDM Rationale portion of this note. 07/27/24 14:37 07/27/24 14:37 Labs: Lab Results 07/27/24 07/27/24 07/27/24 Range/Units 14:37 14:46 16:05 WBC 5.8 (4.8-10.8) X10*3/uL RBC 3.77 L (4.20-5.50) X10*6/uL Hgb 11.2 L (12.0-16.0) g/dl Hct 36.1 L (37.0-47.0) % MCV 95.8 (80.0-98.0) fL MCH 29.7 (27.0-33.0) pg MCHC 31.0 (31.0-35.0) g/dl RDW 14.5 (11.0-16.0) % Plt Count 313 (160-400) X10*3/uL MPV 8.9 L (9.4-12.3) fL Immature Gran % (Auto) 0.9 H (0.0-0.4) % Neut % (Auto) 89.2 H (45-73) % Lymph % (Auto) 5.4 L (20-40) % Lake % (Auto) 3.8 (2-11) % Eos % (Auto) 0.0 (0-4) % Baso % (Auto) 0.7 (0-2) % Lymph # (Auto) 0.3 L (1.2-4.9) X10*3/uL [place] # (Auto) 0.2 (0.1-1.2) X10*3/uL Eos # (Auto) 0.0 (0.0-0.4) X10*3/uL Baso # (Auto) 0.0 (0.0-0.2) X10*3/uL Abs Immat Gran (auto) 0.05 H (0.00-0.03) X10*3/uL Absolute Neuts (auto) 5.1 (2.0-8.3) x10*3/uL Absolute Nucleated RBC 0.000 (0.0-0.012) X10*3/uL Nucleated RBC % (auto) 0.0 (0.0-0.2) /100WBC VBG pH 7.40 (7.32-7.43) VBG pCO2 81 mmHg VBG pO2 103 mmHg VBG HCO3 51 H (22-26) mmol/L VBG O2 Saturation 99.0 % VBG Base Excess 22.4 mmol/L Sodium 145 (135-145) mmol/L Potassium 4.0 (3.3-5.1) mmol/L Chloride 95 L (96-108) mmol/L Carbon Dioxide 43 H* (22-29) mmol/L Anion Gap 11 L (12-20) BUN 21 H (9-16) mg/dL Creatinine 0.83 (0.5-1.4) mg/dL Estim Creat Clear Calc 63.9 Estimated GFR > 60 Random Glucose 122 H (60-115) mg/dL Calcium 9.6 (8.4-10.2) mg/dL Total Bilirubin 0.2 (0.0-1.0) mg/dL AST 19 (5-31) U/L ALT 14 (0-31) U/L Alkaline Phosphatase 83 (39-117) U/L Troponin I High Sens 5.3 D (<3.5-17.0) ng/L B-Natriuretic Peptide 135 H (<100) pg/mL Total Protein 6.9 (6.5-8.0) g/dL Albumin 4.1 (3.5-5.0) g/dL Urine Color Yellow Urine Appearance Clear Urine pH 7.5 (5.0-9.0) Ur Specific [place] 1.015 (1.005-1.025) Urine Protein 30 (1+) H (Neg-Trace) mg/dL Urine Glucose (UA) Negative (Negative) mg/dL Urine Ketones Negative (Negative) mg/dL Urine Blood Small (1+) H (Negative) Urine Nitrite Negative (Negative) Ur Leukocyte Esterase Negative (Negative) Urine RBC 11-20 H (0-2) /HPF Urine WBC 0-5 (0-5) /HPF Ur Squamous Epith Cells 0-2 (0-2) /HPF Urine Bacteria None Seen (None Seen) Hyaline Casts 0-2 (0-2) /LPF Influenza Type A (PCR) NEGATIVE (Negative) Influenza Type B (PCR) NEGATIVE (Negative) RSV RNA Qual (PCR) NEGATIVE (Negative) SARS-CoV-2 RNA (RT-PCR) POSITIVE A (Negative) Independent Interpretation I performed an independent interpretation of an: EKG and CT Scan Interpretation: My interpretation is in agreement with the radiologist's impression of this imaging study. - EXAMINATION: CT ANGIOGRAM CHEST, PE STUDY CLINICAL INFORMATION: SOB, recent COVID+ COMPARISON: None. TECHNIQUE: A noncontrast localizer was performed, followed by the administration of 60 mL Omnipaque [address] of the chest was then performed. Coronal and sagittal reformatted and 3-D technique MIP images of the chest were completed at the CT scanner and reviewed on the PACS workstation. No adverse effects were reported. [This CT examination was performed using dose optimization techniques as appropriate, variously including the following: *Automated exposure control *Adjustment of mA and/or kV according to patient size (this includes techniques or standardized protocols for targeted exams where dose is matched to indication/reason for exam; i.e. extremities or head) *Use of iterative reconstruction technique] DLP: 270 mGy-cm. FINDINGS: VASCULAR: The main pulmonary artery, secondary and tertiary branches of the pulmonary artery are normally opacified with no evidence of pulmonary embolism. No aneurysm of aorta. There are vascular wall calcifications of the aorta. MEDIASTINUM: No mediastinal mass. No significant lymphadenopathy. Heart size is prominent. No pericardial effusion. CORONARY ARTERIES: Volume of coronary calcification:None LUNGS: Marked emphysematous change of lungs. Irregular patchy airspace opacity in the subpleural lung in the left upper lobe. This is new since exam March 01, 2022. May be inflammatory or infectious in etiology. FLUID: There is no pericardial effusion. There is no pleural effusion. AXILLA: No significant lymphadenopathy. UPPER ABDOMEN: Adrenal glands normal. Visualized portions of liver and spleen unremarkable. SKELETAL: No suspicious focal bone finding. Multilevel degenerative spondylosis of the spine. CT/CT angio chest PE protocol IMPRESSION: 1. No evidence of pulmonary embolism. 2. Marked emphysematous change of lungs. 3. Irregular patchy airspace opacity in the subpleural lung in the left upper lobe. This is new since exam March 01, 2022. May be inflammatory or infectious in etiology. Consider short-term follow-up imaging. Electronically signed by: Nicholas Gtz MD 07/27/2024 06:36 PM EDT RP Dictated By: Nicholas Gtz MD Signed By: Electronically signed by Nicholas Gtz MD 07/27/24 1836 - Vent. Rate : 077 BPM Atrial Rate : 077 BPM P-R Int : 166 ms QRS Dur : 078 ms QT Int : 374 ms P-R-T Axes : -19 060 033 degrees QTc Int : 423 ms Sinus rhythm with Premature atrial complexes Septal infarct , age undetermined Abnormal ECG When compared with ECG of 21-JUN-2024 11:13, Premature atrial complexes are now Present DD/ [id number] Radiology Impression Discussion of test interpretation with radiology: I have reviewed the radiologist's reading. Critical Care Time Critical Care Time Critical Care Time: Yes Total Critical Care Time: 54 Attestation: I spent 54 minutes of Critical Care Time with this patient. This does not include time spent on separately reported billable procedures. Discharge Plan Discharge Clinical Impression: COPD (chronic obstructive pulmonary disease) Patient Disposition: Admitted As Inpatient
[2024-07-27] MEDS: methylPREDNISolone Sod Succ 125 MG/2 ML VIAL 60 MG IVPUSH (15:10)
[2024-07-27 15:12] LABS: Alanine Aminotransferase 14 U/L (0-31); Albumin Level 4.1 g/dL (3.5-5.0); Alkaline Phosphatase 83 U/L (39-117); Anion Gap 11 (12-20); Aspartate Amino Transferase 19 U/L (5-31); Bilirubin Total 0.2 mg/dL (0.0-1.0); Blood Urea Nitrogen 21 mg/dL (9-16); Calcium 9.6 mg/dL (8.4-10.2); Carbon Dioxide 43 mmol/L (22-29); Chloride 95 mmol/L (96-108); Creatinine Clr Calc Pharmacy 63.9; Estimated Glomerular Filt Rate > 60; Glucose Random 122 mg/dL (60-115); Sodium 145 mmol/L (135-145); Total Protein 6.9 g/dL (6.5-8.0)
[2024-07-27 15:14] LABS: B Type Natriuretic Peptide 135 pg/mL (<100)
[2024-07-27 15:18] LABS: Troponin-I High Sensitivity 5.3 ng/L (<3.5-17.0)
[2024-07-27] MEDS: Albuterol Sulfate 2.5 MG, Albuterol/Iprat 2.5/0.5MG 3 ML 3 ML INHALE (15:19)
[2024-07-27 15:28] LABS: Influenza A PCR NEGATIVE (Negative); Influenza B PCR NEGATIVE (Negative); Resp Syncy Virus RNA Qual PCR NEGATIVE (Negative); SARS COV2 PCR INHOUSE POSITIVE (Negative)
[2024-07-27 16:12] LABS: Appearance Urine Clear; Color Urine Yellow; Glucose Urine UA Negative (Negative); Leukocyte Esterase Urine Negative (Negative); Nitrite Urine Negative (Negative); PH 7.5 (5.0-9.0); Specific Gravity - Urine 1.015 (1.005-1.025); UMIC TRIGGER UACC YES; Urine Blood Small (1+) (Negative); Urine Ketones Negative (Negative); Urine Protein 30 (1+) mg/dL (Neg-Trace)
[2024-07-27 16:18] LABS: Bacteria Urine None Seen (None Seen); Hyaline Casts Urine 0-2 /LPF (0-2); Squamous Epithelial Cell Urine 0-2 /HPF (0-2); WBC Urine 0-5 /HPF (0-5)
[2024-07-27] MEDS: iohexoL 350 MG/ML 100 ML INFUS..BTL IV (16:42)
[2024-07-27] MEDS: Acetaminophen 1,000 MG/100 ML PIGGYBACK 400 MG IV (18:37)
[2024-07-27] MEDS: cefTRIAXone sodium 1 GM in 0.9 % Sodium Chloride 50 ML IV (19:03)
--- NOTE | 2024-07-27 19:06 | PC.NURSE ---
NO blood cultures needed per provider Megha, patient waiting for admitting provider, CASANDRAS.
[2024-07-27] MEDS: Azithromycin 500 MG in 0.9 % Sodium Chloride 250 ML 125 MG IV (19:41)
--- NOTE | 2024-07-27 19:48 | P.HPHOSP_ITS ---
History of Present Illness Date of Service: 07/27/24 Attending physician on admission: Stefan Ware Chief Complaint: SOB Pt is a 69-year-old female with a PMH significant for?end stage COPD on 3L NC at rest and 6L with activity, chronic hypoxic and hypercarbic respiratory failure on Triology respirator at night, follows with Dr. Acharya?in pulmonology, HTN, hx of tracheostomy, osteoporosis, and mood disorder who presents from detention to the ED with?cough, SOB, fatigue. Patient states she tested positive for COVID 2 weeks ago after being infected by someone visiting her for peer support. At that time he felt run down, tired, and had difficulty breathing. Developed a cough approximately 1 week ago, and has since had increasing SOB, and difficulty breathing. Patient states she runs out of breath while just walking to the bathroom or across the room to the kitchen. Had been noted to desat to 72% on her home O2. Subjective fever and chills Denies any chest pain/pressure, or palpitations. No nausea, vomiting, abdominal pain. Denies any increased lower leg edema. Patient reports has been using her home inhalers, but they have been offering very little relief. In the ED pt was tachypneic up to 22, hypertensive up to 148/65, and desatting as low as 88% on home 2 L NC. Labs were significant for bicarb 43, BUN 21, and BUN 135. No leukocytosis. Stable H&H. No significant electrolyte abnormalities. UA negative for UTI. Continues to past positive for COVID. CTA of chest showed no evidence of pulmonary embolism, but did show irregular patchy airspace opacity in left upper lobe concerning for inflammatory or infectious in nature. EKG demonstrated sinus rhythm with PACs and no evidence of significant ST elevations or depressions. Pt was treated with Solu-Medrol, DuoNebs, acetaminophen, ceftriaxone, and azithromycin. Pt will be admitted to the hospital for acute on chronic hypoxic respiratory failure in the setting of COPD exacerbation with superimposed pneumonia likely secondary to recent COVID infection. Review of Systems 2 Review of Systems: SOB, difficulty breathing, FERNANDEZ Increased cough Fatigue, generalized weakness Subjective fever and chills Denies nausea, vomiting, diarrhea, abdominal pain No chest pain/pressure or palpitations PMFSH Medical History Rib fractures Pulmonary nodule Tubular adenoma of colon (~2006) Osteopenia (~2012) Bronchopneumonia Chest pain Chronic respiratory alkalosis ILD (interstitial lung disease) CO2 retention Acute on chronic respiratory failure with hypoxia and hypercapnia Bipolar depression Eczema Limb swelling Insomnia Bronchitis Vasomotor rhinitis COPD (chronic obstructive pulmonary disease) Chronic respiratory failure Fall Acute metabolic encephalopathy Acute and chronic respiratory failure with hypercapnia Family History Other Hypertension Surgical History History of carpal tunnel surgery (~2000) History of ventral hernia repair (~2003) History of left inguinal hernia repair (~1995) History of tracheostomy (~2016) History of cataract surgery (~2018) History of colonoscopy Social History Household Members: Other Household Members Other:: pulmonary rehab Housing: Other Housing Other:: detention Are you a primary housekeeper caregiver to a significant other at home: No Do you presently have visiting nurse or other home services: Yes Alcohol intake: unknown Patient Tobacco Use Status: Former Tobacco user Tobacco use type: Cigarette Years Smoked: 20+ years Smoked in Last 30 Days: No e-Cigarette/Vaping Use: Never Used Second Hand Smoke Exposure: No Use of substances other than those prescribed or required for medical reasons: No Advance Directives: Yes Advance Directives on File: Yes Advance Directives Date on File: 11/30/21 Do you have a plan to hurt others: No Plan Nutrition Risks: No Nutritional Risk service: No Current occupational status: disabled Meds Allergies Allergy/AdvReac Type Severity Reaction Status Date / Time codeine [Codeine] Allergy Intermediate RESTLESS/RA Verified 07/27/24 14:10 SH haloperidol [Haldol] Allergy Intermediate Palpitation Verified 07/27/24 14:10 s Sulfa (Sulfonamide Allergy Intermediate HIVES Verified 07/27/24 14:10 Antibiotics) Active Medications: Current Medications Acetaminophen (Acetaminophen 325 Mg Tablet) 650 mg PO Q6H PRN PRN Reason: Pain, Mild (Pain Scale 1-3), fever or headache Albuterol/Ipratropium (Albuterol/Iprat 2.5/0.5mg 3 Ml Ampul.Neb) 3 ml INHALE RQ4H WHILE AWAKE [facility] Albuterol/Ipratropium (Albuterol/Iprat 2.5/0.5mg 3 Ml Ampul.Neb) 3 ml INHALE Q4H PRN PRN Reason: Wheezing Benzonatate (Benzonatate 100 Mg Capsule) 100 mg PO TID PRN PRN Reason: Cough Calcium Carbonate (Calcium Carbonate 750 Mg Tab.Chew) 750 mg PO Q4H PRN PRN Reason: Heartburn Dexamethasone (Dexamethasone 6 Mg Tablet) 6 mg PO DAILY [facility] Enoxaparin Sodium (Enoxaparin Sodium 40 Mg/0.4 Ml Syringe) 40 mg SUBCUT Q24H [facility] Azithromycin 500 mg/ Sodium (Chloride) 250 mls @ 125 mls/hr IV ONCE ONE Stop: 07/27/24 20:51 Last Admin: 07/27/24 19:41 Dose: 125 mls/hr Ceftriaxone Sodium 1 gm/ (Sodium Chloride) 50 mls @ 100 mls/hr IV Q24H [facility] Azithromycin 500 mg/ Sodium (Chloride) 250 mls @ 125 mls/hr IV Q24H [facility] Magnesium Hydroxide (Milk Of Magnesia 30 Ml Oral.Susp) 30 ml PO DAILY PRN PRN Reason: Constipation Melatonin (Melatonin 3 Mg Tablet) 6 mg PO BEDTIME PRN PRN Reason: Insomnia Ondansetron HCl (Ondansetron Hcl 4 Mg/2 Ml Vial) 4 mg IVPUSH Q8H PRN PRN Reason: Nausea and Vomiting Sodium Chloride (0.9 % Sodium Chloride Flush 3 Ml Syringe) 3 ml IVFLUSH QSHIFT [facility] Home Medications ?Medication ?Instructions ?Recorded ?Confirmed ?Last Taken ?Type acetaminophen 500 mg tablet 1,000 mg PO Q8H PRN Headache 02/09/21 07/27/24 07/27/24 07:00 History albuterol sulfate 90 mcg/actuation 2 puff inhalation QID PRN 02/09/21 07/27/24 07/27/24 07:00 History aerosol inhaler (Proventil HFA) Respiratory Distress alendronate 70 mg tablet (Fosamax) 70 mg PO SA 02/09/21 07/27/24 07/21/24 History aspirin 81 mg tablet,delayed 81 mg PO DAILY 02/09/21 07/27/24 07/27/24 07:00 History release cholecalciferol (vitamin D3) 50 50 mcg PO DAILY 02/09/21 07/27/24 07/27/24 07:00 History mcg (2,000 unit) capsule (Vitamin D3) lamotrigine 150 mg tablet 300 mg PO BEDTIME 02/09/21 07/27/24 07/27/24 07:00 History lamotrigine 200 mg tablet 200 mg PO DAILY 02/09/21 07/27/24 07/27/24 07:00 History montelukast 10 mg tablet 10 mg PO BEDTIME 02/09/21 07/27/24 07/27/24 07:00 History mirtazapine 15 mg tablet 15 mg PO BEDTIME 09/10/21 07/27/24 07/27/24 07:00 History sennosides 8.6 mg tablet (Senokot) 8.6 mg PO BEDTIME 09/10/21 07/27/24 07/27/24 07:00 History metoprolol succinate 50 mg 50 mg PO DAILY 11/18/21 07/27/24 07/27/24 07:00 History tablet,extended release 24 hr aripiprazole 15 mg tablet 10 mg PO DAILY 11/02/22 07/27/24 07/27/24 07:00 History omega-3 fatty acids-fish oil 300 1 cap PO BID 11/02/22 07/27/24 07/27/24 07:00 History mg-500 mg capsule (Fish Oil) Oxygen Home Use 04/15/23 05/17/24 Unknown History fluticasone propionate 50 1 spray intranasal DAILY Allergies 04/15/23 07/27/24 07/27/24 07:00 History mcg/actuation nasal spray,suspension nebulizers 04/15/23 05/17/24 Unknown History vilazodone 40 mg tablet 40 mg PO DAILY 04/15/23 07/27/24 07/27/24 07:00 History gabapentin 100 mg capsule 100 mg PO TID 09/20/23 07/27/24 07/27/24 12:00 History fluticasone furoate 200 1 inh inhalation DAILY SOB 06/21/24 07/27/24 07/27/24 07:00 History mcg-vilanterol 25 mcg/dose inhalation powder (Breo Ellipta) pantoprazole 40 mg tablet,delayed 40 mg PO DAILY@0630 07/07/27/24 07/27/24 07:00 History release salmeterol 50 mcg/dose blister 1 inh inhalation BID SOB 06/21/24 07/27/24 07/27/24 07:00 History powder for inhalation (Serevent Diskus) albuterol sulfate 2.5 mg/3 mL 2.5 mg inhalation Q6H PRN 07/27/24 07/27/24 Unknown History (0.083 %) solution for nebulization Shortness Of Breath Or Wheezing benzonatate 100 mg capsule 100 mg PO Q8H PRN Cough 07/27/24 07/27/24 07/27/24 07:00 History betamethasone dipropionate 0.05 % 1 appl topical Q12H PRN Dermititis 07/27/24 07/27/24 07/27/24 07:00 History topical cream calcium carbonate 500 mg-vitamin 1 tab PO BID 07/27/24 07/27/24 07/27/24 07:00 History D3 5 mcg (200 unit) tablet (Calcium 500 + D) cyclobenzaprine 5 mg tablet 5 mg PO Q8H PRN Muscle Pain 07/27/24 07/27/24 07/27/24 07:00 History diclofenac sodium 1 % topical gel 1 g topical Q8H PRN Pain 07/27/24 07/27/24 07/27/24 07:00 History docusate sodium 100 mg capsule 100 mg PO DAILY Constipation 07/27/24 07/27/24 07/27/24 07:00 History fluocinolone acetonide oil 0.01 % 4 drp otic (ears) Q48H 07/27/24 07/27/24 Unknown History ear drops (DermOtic Oil) ibuprofen 600 mg tablet 600 mg PO Q8H PRN Muscle Pain 07/27/24 07/27/24 07/27/24 07:00 History lactulose 10 gram/15 mL oral 30 ml PO DAILY PRN Constipation 07/27/24 07/27/24 07/27/24 07:00 History solution meloxicam 15 mg tablet 15 mg PO DAILY 07/27/24 07/27/24 07/27/24 07:00 History theophylline 200 mg 200 mg PO BID 07/27/24 07/27/24 07/27/24 07:00 History tablet,extended release,12 hr tramadol 50 mg tablet 50 mg PO Q6H PRN Pain 07/27/24 07/27/24 07/27/24 07:00 History Physical Exam 2 Vital Signs and Narrative: Vital Signs: Last Vital Signs Temp 98.3 F 07/27/24 19:05 Pulse 74 07/27/24 19:05 Resp 20 07/27/24 19:05 BP 145/92 H 07/27/24 19:05 Pulse Ox 98 07/27/24 19:05 O2 Del Method Nasal Cannula 07/27/24 19:05 O2 Flow Rate 3 07/27/24 19:05 Oxygen Flow Rate 2 07/27/24 14:05 BMI result Body Mass Index 37.0 General: AOx3, no acute distress Resp: Lungs significantly diminished bilaterally, mild wheezing CVS: S1, S2, RRR GI: +BS, NT, no distention Skin: Warm, dry Neuro: Cranial nerves II-XII grossly intact bilaterally. Motor grossly intact bilaterally Extremities: No edema Psych: Appropriate affect Results Labs 07/27/24 14:37 07/27/24 14:37 Labs: Laboratory Results - last 24 hr 07/27/24 07/27/24 07/27/24 14:37 14:46 16:05 MCV 95.8 MCH 29.7 MCHC 31.0 RDW 14.5 Plt Count 313 MPV 8.9 L Immature Gran % (Auto) 0.9 H Neut % (Auto) 89.2 H Lymph % (Auto) 5.4 L [place] % (Auto) 3.8 Eos % (Auto) 0.0 Baso % (Auto) 0.7 Lymph # (Auto) 0.3 L [place] # (Auto) 0.2 Eos # (Auto) 0.0 Baso # (Auto) 0.0 Abs Immat Gran (auto) 0.05 H Absolute Neuts (auto) 5.1 Absolute Nucleated RBC 0.000 Nucleated RBC % (auto) 0.0 VBG pH 7.40 VBG pCO2 81 VBG pO2 103 VBG HCO3 51 H VBG O2 Saturation 99.0 VBG Base Excess 22.4 Anion Gap 11 L Estim Creat Clear Calc 63.9 Estimated GFR > 60 Random Glucose 122 H Calcium 9.6 Total Bilirubin 0.2 AST 19 ALT 14 Alkaline Phosphatase 83 Troponin I High Sens 5.3 D B-Natriuretic Peptide 135 H Total Protein 6.9 Albumin 4.1 Urine Color Yellow Urine Appearance Clear Urine pH 7.5 Ur Specific [place] 1.015 Urine Protein 30 (1+) H Urine Glucose (UA) Negative Urine Ketones Negative Urine Blood Small (1+) H Urine Nitrite Negative Ur Leukocyte Esterase Negative Urine RBC 11-20 H Urine WBC 0-5 Ur Squamous Epith Cells 0-2 Urine Bacteria None Seen Hyaline Casts 0-2 Influenza Type A (PCR) NEGATIVE Influenza Type B (PCR) NEGATIVE RSV RNA Qual (PCR) NEGATIVE SARS-CoV-2 RNA (RT-PCR) POSITIVE A Imaging Radiologist's Impressions: Impressions Chest CTA 07/27/24 15:24 IMPRESSION: 1. No evidence of pulmonary embolism. 2. Marked emphysematous change of lungs. 3. Irregular patchy airspace opacity in the subpleural lung in the left upper lobe. This is new since exam March 01, 2022. May be inflammatory or infectious in etiology. Consider short-term follow-up imaging. Electronically signed by: Nicholas Gtz MD 07/27/2024 06:36 PM EDT RP Assessment and Plan (1) COPD exacerbation: Status: Acute (2) Acute and chronic respiratory failure with hypercapnia: Status: Acute (3) Pneumonia: Status: Acute Plan Pt is a 69-year-old female with a PMH significant for?end stage COPD on 3L NC at rest and 6L with activity, chronic hypoxic and hypercarbic respiratory failure on Triology respirator at night, follows with Dr. Acharya?in pulmonology, HTN, hx of tracheostomy, osteoporosis, and mood disorder who presents from detention to the ED with?cough, SOB, fatigue. Pt will be admitted to the hospital for acute on chronic hypoxic respiratory failure in the setting of COPD exacerbation with superimposed pneumonia likely secondary to recent COVID infection. Acute on chronic hypoxic and hypercarbic respiratory failure in the setting of pneumonia likely secondary to recent COVID infection Tested positive for COVID 2 weeks ago, since then increasing SOB, FERNANDEZ, cough, fatigue, increasing O2 requirements CTA showing likely CELINA infiltrate Patient does not meet sepsis criteria: Tachypnea, but no fever, or leukocytosis Will treat with ceftriaxone and azithromycin, started 07/27/2024 Titrate supplemental O2 with goal of 88-90, wean as tolerated Monitor respiratory status Acute COPD exacerbation Duonebs, steroirds Continue home inhalers Treat as above Nighttime ventilator Pt on Triology at night Will order nighttime BiPAP Mood disorder Continue home mood stabalizers HTN Continue metoprolol GERD PPI Full Code Attending:?Dr. Ware DVT Prophylaxis: Lovenox Pt will require a hospitalization of at least two nights for treatment of?acute on chronic hypoxic and hypercarbic respiratory failure in the setting of COPD exacerbation with superimposed pneumonia secondary to recent COVID infection. Pt will require hospitalization for administration of IV antibiotics, breathing treatments, and close monitoring respiratory status. Quality Stroke Does the patient have a stroke diagnosis?: No VTE Prior VTE?: No VTE Risk Level:: Medical - moderate - high VTE Device Contraindication: Treatment Not Indicated VTE Drug Contraindication: N/A - Med Ordered
--- NOTE | 2024-07-27 20:18 | PHA.MEDREC ---
Addendum entered by Marita Diamond RPh 07/27/24 20:44: Reviewed by [facility] Original Note: Pharmacy Consult ? Medication Reconciliation Pharmacy has completed the medication reconciliation. confirmed medications with list provided by patient from home. Patient confirmed her Fosamax 70mg tab once weekly on Saturdays and she states she last took it 07/21. She is also on a DermOtic Oil 4 drops in both ears every 48 hours, the patient couldn't remember the last time she did them but knows it was in the last few days. She states she took all her morning meds around 0700 and she took a second dose of Gabapentin 100mg and a dose of her Albuterol Sulfate Nebulizer at 1200.
[2024-07-27] MEDS: Enoxaparin Sodium 40 MG/0.4 ML SYRINGE SUBCUT (20:55)
[2024-07-27] MEDS: Gabapentin 100 MG CAPSULE PO (22:11)
[2024-07-27] MEDS: Mirtazapine 15 MG TABLET PO (22:11)
[2024-07-27] MEDS: Montelukast Sodium 10 MG TABLET PO (22:11)
[2024-07-27] MEDS: lamoTRIgine 100 MG TABLET 300 MG PO (22:11)
[2024-07-27] MEDS: Sennosides 8.6 MG TABLET PO (22:11)
--- NOTE | 2024-07-27 22:13 | PC.NURSE ---
Patient medicated w/ PM meds per mar, repsoitioned to comfort, RT to be called to place patient on their HS bipap, awaiting bed assignment.
[2024-07-28] VITALS (10 sets, daily range): BP systolic 117–156; BP diastolic 60–71; PULSE 66–77; RESP 16–21; TEMP 36.1–36.9; O2SAT 93–100
--- NOTE | 2024-07-28 | ECG_ITS ---
Test Reason : chest pain Blood Pressure : / mmHG Vent. Rate : 073 BPM Atrial Rate : 073 BPM P-R Int : 142 ms QRS Dur : 082 ms QT Int : 362 ms P-R-T Axes : 000 116 164 degrees QTc Int : 398 ms Suspect limb lead reversal, interpretation assumes no reversal Normal sinus rhythm Lateral infarct , age undetermined Abnormal ECG When compared with ECG of 27-JUL-2024 14:19, Premature atrial complexes are no longer Present QRS axis Shifted right Referred By: Jose Griffin Electronically Signed By:SHANE NOVA
[2024-07-28] MEDS: 0.9 % Sodium Chloride Flush 3 ML SYRINGE IVFLUSH ×4 (00:44→20:55)
[2024-07-28] MEDS: Omeprazole 20 MG CAPSULE.DR PO (06:07)
[2024-07-28 07:33] LABS: MANUAL DIFF FLAG NO
[2024-07-28 07:38] LABS: Basophils Percent Auto 0.6 % (0-2); Hematocrit 32.7 % (37.0-47.0); Imm Gran Abs Auto 0.03 X10*3/uL (0.00-0.03); Imm Gran Pct Auto 0.6 % (0.0-0.4); Lymphocytes Absolute Auto 0.5 X10*3/uL (1.2-4.9); Lymphocytes Percent Auto 10.1 % (20-40); Mean Corpuscular HGB Conc 30.6 g/dl (31.0-35.0); Mean Corpuscular Volume 94.8 fL (80.0-98.0); Mean Platelet Volume 9.7 fL (9.4-12.3); Monocytes Absolute Auto 0.5 X10*3/uL (0.1-1.2); Monocytes Percent Auto 10.3 % (2-11); Neutrophils Absolute Auto 4.1 x10*3/uL (2.0-8.3); Neutrophils Percent Auto 78.4 % (45-73); Platelet Count 275 X10*3/uL (160-400); Red Blood Count 3.45 X10*6/uL (4.20-5.50); Red Cell Distribution Width 14.4 % (11.0-16.0); White Blood Count 5.2 X10*3/uL (4.8-10.8)
[2024-07-28] MEDS: Albuterol/Iprat 2.5/0.5MG 3 ML AMPUL.NEB INHALE ×4 (07:43→18:43)
[2024-07-28 08:00] LABS: Blood Urea Nitrogen 15 mg/dL (9-16); Calcium 8.8 mg/dL (8.4-10.2); Creatinine Clr Calc Pharmacy 67.6; Estimated Glomerular Filt Rate > 60; Glucose Random 95 mg/dL (60-115)
[2024-07-28 08:18] LABS: Anion Gap 13 (12-20); Carbon Dioxide 39 mmol/L (22-29); Chloride 97 mmol/L (96-108); Sodium 145 mmol/L (135-145)
[2024-07-28] MEDS: Cholecalciferol (Vitamin D3) 25 MCG TABLET 50 MCG PO (08:29)
[2024-07-28] MEDS: Gabapentin 100 MG CAPSULE PO ×3 (08:30→20:11)
[2024-07-28] MEDS: ARIPiprazole 10 MG TABLET PO (08:30)
[2024-07-28] MEDS: acetaZOLAMIDE 250 MG TABLET PO ×3 (08:31→20:11)
[2024-07-28] MEDS: Aspirin Enteric Coated 81 MG TABLET.DR PO (08:31)
[2024-07-28] MEDS: Fluticasone/Vilanterol 200/25 BLST.W.DEV 1 PUFF INHALE (08:31)
[2024-07-28] MEDS: Salmeterol Xinafoate 50 MCG BLST.W.DEV 1 PUFF INHALE ×2 (08:31→18:48)
[2024-07-28] MEDS: Docusate Sodium 100 MG CAPSULE PO (08:32)
[2024-07-28] MEDS: lamoTRIgine 100 MG TABLET 200 MG PO (08:32)
[2024-07-28] MEDS: Metoprolol Succinate ER 50 MG TAB.ER.24H PO (08:32)
[2024-07-28] MEDS: dexAMETHasone 6 MG TABLET PO (08:33)
--- NOTE | 2024-07-28 09:49 | MHC.CM.PN ---
Addendum entered by Isamar Acevedo 07/28/24 09:52: Patient does use O2 at the [facility]. Original Note: Patient is covid positive; CM spoke to her over the phone at [phone] and addressed IMM with her. Patient's dc goal is to return to her [facility] Term; CM has initiated and will follow for dc planning. HCP is Patient's Son/Anthony.
[2024-07-28] MEDS: Vilazodone HCL 40 MG TABLET PO (10:22)
--- NOTE | 2024-07-28 11:28 | HO.PM.IMPN ---
Subjective Subjective Date of Service: 07/28/24 Interval History: somewhat improved Physical Exam Vital Signs: Vital Signs: Last Vital Signs Temp 98.5 F 07/28/24 08:00 Pulse 73 07/28/24 11:20 Resp 16 07/28/24 11:20 BP 135/67 07/28/24 08:00 Pulse Ox 100 07/28/24 08:00 O2 Del Method Nasal Cannula 07/28/24 08:00 O2 Flow Rate 3 07/28/24 08:00 Oxygen Flow Rate 2 07/27/24 14:05 BMI result Body Mass Index 37.5 General: AO X 3, no acute distress Resp: diminished bilateral, no accessory muscles used CVS: S1,S2,RRR GI: soft, non tender, non distended Neuro: motor grossly intact, alert Psych: appropriate affect, appropriate insight Objective Data Active Medications Acetaminophen (Acetaminophen 325 Mg Tablet) 650 mg PO Q6H PRN PRN Reason: Pain, Mild (Pain Scale 1-3), fever or headache Acetazolamide (Acetazolamide 250 Mg Tablet) 250 mg PO TID [facility] Stop: 07/28/24 21:01 Last Admin: 07/28/24 08:31 Dose: 250 mg Documented By: DANIEL Albuterol Sulfate (Albuterol Sulfate (0.083%) 2.5 Mg/3 Ml Vial.Neb) 2.5 mg INHALE Q6H PRN PRN Reason: Shortness Of Breath Or Wheezing Albuterol/Ipratropium (Albuterol/Iprat 2.5/0.5mg 3 Ml Ampul.Neb) 3 ml INHALE RQ4H WHILE AWAKE [facility] Last Admin: 07/28/24 11:16 Dose: 3 ml Documented By: DIPTI Albuterol/Ipratropium (Albuterol/Iprat 2.5/0.5mg 3 Ml Ampul.Neb) 3 ml INHALE Q4H PRN PRN Reason: Wheezing Aripiprazole (Aripiprazole 10 Mg Tablet) 10 mg PO DAILY [facility] Last Admin: 07/28/24 08:30 Dose: 10 mg Documented By: DANIEL Aspirin (Aspirin Enteric Coated 81 Mg Tablet.) 81 mg PO DAILY [facility] Last Admin: 07/28/24 08:31 Dose: 81 mg Documented By: DANIEL Benzonatate (Benzonatate 100 Mg Capsule) 100 mg PO TID PRN PRN Reason: Cough Calcium Carbonate (Calcium Carbonate 750 Mg Tab.Chew) 750 mg PO Q4H PRN PRN Reason: Heartburn Cyclobenzaprine HCl (Cyclobenzaprine Hcl 5 Mg Tablet) 5 mg PO Q8H PRN PRN Reason: Muscle Pain Dexamethasone (Dexamethasone 6 Mg Tablet) 6 mg PO DAILY [facility] Last Admin: 07/28/24 08:33 Dose: 6 mg Documented By: DANIEL Docusate Sodium (Docusate Sodium 100 Mg Capsule) 100 mg PO DAILY [facility] Last Admin: 07/28/24 08:32 Dose: 100 mg Documented By: DANIEL Enoxaparin Sodium (Enoxaparin Sodium 40 Mg/0.4 Ml Syringe) 40 mg SUBCUT Q24H [facility] Last Admin: 07/27/24 20:55 Dose: 40 mg Documented By: MJ Fluticasone Propionate (Fluticasone Propionate Nasal 16 Gm [place]) 1 spray NOSTRIL-B DAILY [facility] Fluticasone/Vilanterol (Fluticasone/Vilanterol 200/25 Blst.W.Dev) 1 puff INHALE RDAILY [facility] Last Admin: 07/28/24 08:31 Dose: 1 puff Documented By: DIPTI Gabapentin (Gabapentin 100 Mg Capsule) 100 mg PO TID [facility] Last Admin: 07/28/24 08:30 Dose: 100 mg Documented By: DANIEL Ceftriaxone Sodium 1 gm/ (Sodium Chloride) 50 mls @ 100 mls/hr IV Q24H [facility] Azithromycin 500 mg/ Sodium (Chloride) 250 mls @ 125 mls/hr IV Q24H [facility] Lactulose (Lactulose 20 Gm/30 Ml Solution) 20 gm PO DAILY PRN PRN Reason: Constipation Lamotrigine (Lamotrigine 100 Mg Tablet) 300 mg PO BEDTIME [facility] Last Admin: 07/27/24 22:11 Dose: 300 mg Documented By: MJ Lamotrigine (Lamotrigine 100 Mg Tablet) 200 mg PO DAILY [facility] Last Admin: 07/28/24 08:32 Dose: 200 mg Documented By: DANIEL Magnesium Hydroxide (Milk Of Magnesia 30 Ml Oral.Susp) 30 ml PO DAILY PRN PRN Reason: Constipation Melatonin (Melatonin 3 Mg Tablet) 6 mg PO BEDTIME PRN PRN Reason: Insomnia Metoprolol Succinate (Metoprolol Succinate Er 50 Mg Tab.Er.24h) 50 mg PO DAILY [facility]; Protocol Last Admin: 07/28/24 08:32 Dose: 50 mg Documented By: DNAIEL Mirtazapine (Mirtazapine 15 Mg Tablet) 15 mg PO BEDTIME [facility] Last Admin: 07/27/24 22:11 Dose: 15 mg Documented By: MJ Montelukast Sodium (Montelukast Sodium 10 Mg Tablet) 10 mg PO BEDTIME [facility] Last Admin: 07/27/24 22:11 Dose: 10 mg Documented By: MJ Omeprazole (Omeprazole 20 Mg Capsule.Dr) 20 mg PO DAILY@0630 [facility] Last Admin: 07/28/24 06:07 Dose: 20 mg Documented By: THOMAS Ondansetron HCl (Ondansetron Hcl 4 Mg/2 Ml Vial) 4 mg IVPUSH Q8H PRN PRN Reason: Nausea and Vomiting Salmeterol Xinafoate (Salmeterol Xinafoate 50 Mcg Blst.W.Dev) 1 puff INHALE RBID [facility] Last Admin: 07/28/24 08:31 Dose: 1 puff Documented By: DIPTI Senna (Sennosides 8.6 Mg Tablet) 8.6 mg PO BEDTIME [facility] Last Admin: 07/27/24 22:11 Dose: 8.6 mg Documented By: MJ Sodium Chloride (0.9 % Sodium Chloride Flush 3 Ml Syringe) 3 ml IVFLUSH QSHIFT [facility] Last Admin: 07/28/24 08:33 Dose: 3 ml Documented By: DANIEL Tramadol HCl (Tramadol Hcl 50 Mg Tablet) 50 mg PO Q6H PRN PRN Reason: Pain, Moderate(Pain Scale 4-6) Vilazodone HCl (Vilazodone Hcl 40 Mg Tablet) 40 mg PO DAILY [facility] Last Admin: 07/28/24 10:22 Dose: 40 mg Documented By: DANIEL Vitamin D (Cholecalciferol (Vitamin D3) 25 Mcg Tablet) 50 mcg PO DAILY [facility] Last Admin: 07/28/24 08:29 Dose: 50 mcg Documented By: DANIEL Labs 07/28/24 07:00 07/28/24 06:59 Labs: Laboratory Results - last 24 hr 07/27/24 07/27/24 07/27/24 14:37 14:46 16:05 MCV 95.8 MCH 29.7 MCHC 31.0 RDW 14.5 Plt Count 313 MPV 8.9 L Immature Gran % (Auto) 0.9 H Neut % (Auto) 89.2 H Lymph % (Auto) 5.4 L Smith % (Auto) 3.8 Eos % (Auto) 0.0 Baso % (Auto) 0.7 Lymph # (Auto) 0.3 L Smith # (Auto) 0.2 Eos # (Auto) 0.0 Baso # (Auto) 0.0 Abs Immat Gran (auto) 0.05 H Absolute Neuts (auto) 5.1 Absolute Nucleated RBC 0.000 Nucleated RBC % (auto) 0.0 VBG pH 7.40 VBG pCO2 81 VBG pO2 103 VBG HCO3 51 H VBG O2 Saturation 99.0 VBG Base Excess 22.4 Anion Gap 11 L Estim Creat Clear Calc 63.9 Estimated GFR > 60 Random Glucose 122 H Calcium 9.6 Total Bilirubin 0.2 AST 19 ALT 14 Alkaline Phosphatase 83 Troponin I High Sens 5.3 D B-Natriuretic Peptide 135 H Total Protein 6.9 Albumin 4.1 Urine Color Yellow Urine Appearance Clear Urine pH 7.5 Ur Specific [place] 1.015 Urine Protein 30 (1+) H Urine Glucose (UA) Negative Urine Ketones Negative Urine Blood Small (1+) H Urine Nitrite Negative Ur Leukocyte Esterase Negative Urine RBC 11-20 H Urine WBC 0-5 Ur Squamous Epith Cells 0-2 Urine Bacteria None Seen Hyaline Casts 0-2 Influenza Type A (PCR) NEGATIVE Influenza Type B (PCR) NEGATIVE RSV RNA Qual (PCR) NEGATIVE SARS-CoV-2 RNA (RT-PCR) POSITIVE A 07/28/24 07/28/24 06:59 07:00 MCV 94.8 MCH 29.0 MCHC 30.6 L RDW 14.4 Plt Count 275 MPV 9.7 Immature Gran % (Auto) 0.6 H Neut % (Auto) 78.4 H Lymph % (Auto) 10.1 L Smith % (Auto) 10.3 Eos % (Auto) 0.0 Baso % (Auto) 0.6 Lymph # (Auto) 0.5 L Smith # (Auto) 0.5 Eos # (Auto) 0.0 Baso # (Auto) 0.0 Abs Immat Gran (auto) 0.03 Absolute Neuts (auto) 4.1 Absolute Nucleated RBC 0.000 Nucleated RBC % (auto) 0.0 VBG pH VBG pCO2 VBG pO2 VBG HCO3 VBG O2 Saturation VBG Base Excess Anion Gap 13 Estim Creat Clear Calc 67.6 Estimated GFR > 60 Random Glucose 95 Calcium 8.8 D Total Bilirubin AST ALT Alkaline Phosphatase Troponin I High Sens B-Natriuretic Peptide Total Protein Albumin Urine Color Urine Appearance Urine pH Ur Specific [place] Urine Protein Urine Glucose (UA) Urine Ketones Urine Blood Urine Nitrite Ur Leukocyte Esterase Urine RBC Urine WBC Ur Squamous Epith Cells Urine Bacteria Hyaline Casts Influenza Type A (PCR) Influenza Type B (PCR) RSV RNA Qual (PCR) SARS-CoV-2 RNA (RT-PCR) Assessment and Plan (1) COPD (chronic obstructive pulmonary disease): Status: Acute Plan 69F PMH chronic hypoxic and hypercapnic respiratory failure due to COPD on 3 L at rest and 6 L on activity, hypertension, osteoporosis, mood disorder presented with cough and shortness of breath Acute on chronic hypoxic and hypercapnic respiratory failure secondary to recent COVID and pneumonia complicated by COPD with acute decompensation Continue ceftriaxone azithromycin, Decadron BiPAP at night We disorder Continue lamotrigine Hypertension Continue Toprol Obesity Weight loss recommended DVT prophylaxis with Lovenox Full Code reason for continued hospitalization: Still feeling short of breath Quality Stroke Does the patient have a stroke diagnosis?: No VTE Prior VTE?: No VTE Risk Level:: Medical - moderate - high VTE Device Contraindication: Treatment Not Indicated VTE Drug Contraindication: N/A - Med Ordered
[2024-07-28] MEDS: Fluticasone Propionate Nasal 16 GM SPRAY 1 SPRAY NOSTRIL-B (11:40)
--- NOTE | 2024-07-28 16:15 | PC.RT ---
patient placed on AVAPS to maintain consistency with patient's home Trilogy settings. MD and RN aware. Home settings per DME: Vt-600. Inspiratory time 1. PS Min 15, Max 30. EPAP Min 8, Max 12.
[2024-07-28] MEDS: Enoxaparin Sodium 40 MG/0.4 ML SYRINGE SUBCUT (20:11)
[2024-07-28] MEDS: Sennosides 8.6 MG TABLET PO (20:11)
[2024-07-28] MEDS: Mirtazapine 15 MG TABLET PO (20:11)
[2024-07-28] MEDS: lamoTRIgine 100 MG TABLET 300 MG PO (20:11)
[2024-07-28] MEDS: Montelukast Sodium 10 MG TABLET PO (20:11)
[2024-07-28] MEDS: cefTRIAXone sodium 1 GM in 0.9 % Sodium Chloride 50 ML IV (20:16)
[2024-07-28] MEDS: Acetaminophen 325 MG TABLET 650 MG PO (20:21)
[2024-07-28] MEDS: Azithromycin 500 MG in 0.9 % Sodium Chloride 250 ML 125 MG IV (20:54)
[2024-07-29] VITALS (11 sets, daily range): BP systolic 120–149; BP diastolic 60–74; PULSE 59–74; RESP 16–20; TEMP 36.2–36.6; O2SAT 93–100
[2024-07-29] MEDS: Omeprazole 20 MG CAPSULE.DR PO (05:32)
[2024-07-29 07:15] LABS: Anion Gap 10 (12-20); Blood Urea Nitrogen 19 mg/dL (9-16); Calcium 8.7 mg/dL (8.4-10.2); Carbon Dioxide 35 mmol/L (22-29); Chloride 101 mmol/L (96-108); Creatinine Clr Calc Pharmacy 55.1; Estimated Glomerular Filt Rate 57; Glucose Fasting 90 mg/dL (60-99); Magnesium 2.2 mg/dL (1.6-2.6); Potassium 3.4 mmol/L (3.3-5.1); Sodium 143 mmol/L (135-145)
[2024-07-29 07:18] LABS: Hematocrit 33.4 % (37.0-47.0); Mean Corpuscular HGB Conc 29.9 g/dl (31.0-35.0); Mean Corpuscular Hemoglobin 29.2 pg (27.0-33.0); Mean Corpuscular Volume 97.4 fL (80.0-98.0); Mean Platelet Volume 9.7 fL (9.4-12.3); Platelet Count 290 X10*3/uL (160-400); Red Blood Count 3.43 X10*6/uL (4.20-5.50); White Blood Count 5.1 X10*3/uL (4.8-10.8)
[2024-07-29] MEDS: Salmeterol Xinafoate 50 MCG BLST.W.DEV 1 PUFF INHALE ×2 (07:36→18:32)
[2024-07-29] MEDS: Albuterol/Iprat 2.5/0.5MG 3 ML AMPUL.NEB INHALE ×4 (07:36→18:32)
[2024-07-29] MEDS: Fluticasone/Vilanterol 200/25 BLST.W.DEV 1 PUFF INHALE (07:36)
[2024-07-29] MEDS: lamoTRIgine 100 MG TABLET 200 MG PO (08:44)
[2024-07-29] MEDS: ARIPiprazole 10 MG TABLET PO (08:45)
[2024-07-29] MEDS: Docusate Sodium 100 MG CAPSULE PO (08:45)
[2024-07-29] MEDS: Vilazodone HCL 40 MG TABLET PO (08:45)
[2024-07-29] MEDS: Gabapentin 100 MG CAPSULE PO ×3 (08:45→21:07)
[2024-07-29] MEDS: dexAMETHasone 6 MG TABLET PO (08:45)
[2024-07-29] MEDS: Cholecalciferol (Vitamin D3) 25 MCG TABLET 50 MCG PO (08:45)
[2024-07-29] MEDS: Metoprolol Succinate ER 50 MG TAB.ER.24H PO (08:45)
[2024-07-29] MEDS: Aspirin Enteric Coated 81 MG TABLET.DR PO (08:45)
[2024-07-29] MEDS: Fluticasone Propionate Nasal 16 GM SPRAY 1 SPRAY NOSTRIL-B (08:47)
[2024-07-29] MEDS: 0.9 % Sodium Chloride Flush 3 ML SYRINGE IVFLUSH ×3 (08:47→21:12)
--- NOTE | 2024-07-29 09:20 | P.PNIM_ITS ---
Subjective Subjective Date of Service: 07/29/24 Interval History: about same as yesterday Physical Exam 2 Vital Signs: Vital Signs: Last Vital Signs Temp 97.9 F 07/29/24 08:00 Pulse 64 07/29/24 08:00 Resp 20 07/29/24 08:00 BP 141/62 H 07/29/24 08:00 Pulse Ox 98 07/29/24 08:00 O2 Del Method Nasal Cannula 07/29/24 08:00 O2 Flow Rate 2 07/29/24 08:00 Oxygen Flow Rate 2 07/27/24 14:05 BMI result Body Mass Index 37.5 General: AO X 3, no acute distress Resp: diminished bilateral, no accessory muscles used CVS: S1,S2,RRR GI: soft, non tender, non distended Neuro: motor grossly intact, alert Psych: appropriate affect, appropriate insight Objective Data Active Medications Acetaminophen (Acetaminophen 325 Mg Tablet) 650 mg PO Q6H PRN PRN Reason: Pain, Mild (Pain Scale 1-3), fever or headache Last Admin: 07/28/24 20:21 Dose: 650 mg Documented By: TRISH Albuterol Sulfate (Albuterol Sulfate (0.083%) 2.5 Mg/3 Ml Vial.Neb) 2.5 mg INHALE Q6H PRN PRN Reason: Shortness Of Breath Or Wheezing Albuterol/Ipratropium (Albuterol/Iprat 2.5/0.5mg 3 Ml Ampul.Neb) 3 ml INHALE RQ4H WHILE AWAKE [facility] Last Admin: 07/29/24 07:36 Dose: 3 ml Documented By: DIPTI Albuterol/Ipratropium (Albuterol/Iprat 2.5/0.5mg 3 Ml Ampul.Neb) 3 ml INHALE Q4H PRN PRN Reason: Wheezing Aripiprazole (Aripiprazole 10 Mg Tablet) 10 mg PO DAILY [facility] Last Admin: 07/29/24 08:45 Dose: 10 mg Documented By: MICHAEL Aspirin (Aspirin Enteric Coated 81 Mg Tablet.) 81 mg PO DAILY [facility] Last Admin: 07/29/24 08:45 Dose: 81 mg Documented By: MICHAEL Benzonatate (Benzonatate 100 Mg Capsule) 100 mg PO TID PRN PRN Reason: Cough Calcium Carbonate (Calcium Carbonate 750 Mg Tab.Chew) 750 mg PO Q4H PRN PRN Reason: Heartburn Cyclobenzaprine HCl (Cyclobenzaprine Hcl 5 Mg Tablet) 5 mg PO Q8H PRN PRN Reason: Muscle Pain Dexamethasone (Dexamethasone 6 Mg Tablet) 6 mg PO DAILY [facility] Last Admin: 07/29/24 08:45 Dose: 6 mg Documented By: MICHAEL Docusate Sodium (Docusate Sodium 100 Mg Capsule) 100 mg PO DAILY [facility] Last Admin: 07/29/24 08:45 Dose: 100 mg Documented By: MICHAEL Enoxaparin Sodium (Enoxaparin Sodium 40 Mg/0.4 Ml Syringe) 40 mg SUBCUT Q24H [facility] Last Admin: 07/28/24 20:11 Dose: 40 mg Documented By: TRISH Fluticasone Propionate (Fluticasone Propionate Nasal 16 Gm [place]) 1 spray NOSTRIL-B DAILY [facility] Last Admin: 07/29/24 08:47 Dose: 1 spray Documented By: MICHAEL Fluticasone/Vilanterol (Fluticasone/Vilanterol 200/25 Blst.W.Dev) 1 puff INHALE RDAILY [facility] Last Admin: 07/29/24 07:36 Dose: 1 puff Documented By: DIPTI Gabapentin (Gabapentin 100 Mg Capsule) 100 mg PO TID [facility] Last Admin: 07/29/24 08:45 Dose: 100 mg Documented By: MICHAEL Ceftriaxone Sodium 1 gm/ (Sodium Chloride) 50 mls @ 100 mls/hr IV Q24H [facility] Last Infusion: 07/28/24 20:50 Dose: Infused Documented By: TRISH Azithromycin 500 mg/ Sodium (Chloride) 250 mls @ 125 mls/hr IV Q24H [facility] Last Infusion: 07/28/24 23:25 Dose: Infused Documented By: ANTOIC Lactulose (Lactulose 20 Gm/30 Ml Solution) 20 gm PO DAILY PRN PRN Reason: Constipation Lamotrigine (Lamotrigine 100 Mg Tablet) 300 mg PO BEDTIME [facility] Last Admin: 07/28/24 20:11 Dose: 300 mg Documented By: TRISH Lamotrigine (Lamotrigine 100 Mg Tablet) 200 mg PO DAILY [facility] Last Admin: 07/29/24 08:44 Dose: 200 mg Documented By: MICHAEL Magnesium Hydroxide (Milk Of Magnesia 30 Ml Oral.Susp) 30 ml PO DAILY PRN PRN Reason: Constipation Melatonin (Melatonin 3 Mg Tablet) 6 mg PO BEDTIME PRN PRN Reason: Insomnia Metoprolol Succinate (Metoprolol Succinate Er 50 Mg Tab.Er.24h) 50 mg PO DAILY [facility]; Protocol Last Admin: 07/29/24 08:45 Dose: 50 mg Documented By: MICHAEL Mirtazapine (Mirtazapine 15 Mg Tablet) 15 mg PO BEDTIME [facility] Last Admin: 07/28/24 20:11 Dose: 15 mg Documented By: TRISH Montelukast Sodium (Montelukast Sodium 10 Mg Tablet) 10 mg PO BEDTIME [facility] Last Admin: 07/28/24 20:11 Dose: 10 mg Documented By: TRISH Omeprazole (Omeprazole 20 Mg Capsule.Dr) 20 mg PO DAILY@0630 [facility] Last Admin: 07/29/24 05:32 Dose: 20 mg Documented By: EVELYN Ondansetron HCl (Ondansetron Hcl 4 Mg/2 Ml Vial) 4 mg IVPUSH Q8H PRN PRN Reason: Nausea and Vomiting Salmeterol Xinafoate (Salmeterol Xinafoate 50 Mcg Blst.W.Dev) 1 puff INHALE RBID [facility] Last Admin: 07/29/24 07:36 Dose: 1 puff Documented By: BRESNE Senna (Sennosides 8.6 Mg Tablet) 8.6 mg PO BEDTIME [facility] Last Admin: 07/28/24 20:11 Dose: 8.6 mg Documented By: TRISH Sodium Chloride (0.9 % Sodium Chloride Flush 3 Ml Syringe) 3 ml IVFLUSH QSHIFT [facility] Last Admin: 07/29/24 08:47 Dose: 3 ml Documented By: MICHAEL Tramadol HCl (Tramadol Hcl 50 Mg Tablet) 50 mg PO Q6H PRN PRN Reason: Pain, Moderate(Pain Scale 4-6) Vilazodone HCl (Vilazodone Hcl 40 Mg Tablet) 40 mg PO DAILY [facility] Last Admin: 07/29/24 08:45 Dose: 40 mg Documented By: MICHAEL Vitamin D (Cholecalciferol (Vitamin D3) 25 Mcg Tablet) 50 mcg PO DAILY [facility] Last Admin: 07/29/24 08:45 Dose: 50 mcg Documented By: MICHAEL Labs 07/29/24 06:19 07/29/24 06:19 Labs: Laboratory Results - last 24 hr 07/29/24 06:19 MCV 97.4 MCH 29.2 MCHC 29.9 L RDW 15.0 Plt Count 290 MPV 9.7 Absolute Nucleated RBC 0.000 Nucleated RBC % (auto) 0.0 Anion Gap 10 L Estim Creat Clear Calc 55.1 Estimated GFR 57 Fasting Glucose 90 Calcium 8.7 Magnesium 2.2 Assessment and Plan (1) COPD (chronic obstructive pulmonary disease): Status: Acute Plan 69F PMH chronic hypoxic and hypercapnic respiratory failure due to COPD on 3 L at rest and 6 L on activity, hypertension, osteoporosis, mood disorder presented with cough and shortness of breath Acute on chronic hypoxic and hypercapnic respiratory failure secondary to recent COVID and pneumonia complicated by COPD with acute decompensation Continue ceftriaxone azithromycin, Decadron BiPAP at night hypoxia now at baseline, but still feeling very weak and sob mood disorder Continue lamotrigine Hypertension Continue Toprol Obesity Weight loss recommended DVT prophylaxis with Lovenox Full Code reason for continued hospitalization: Still feeling short of breath Quality Stroke Does the patient have a stroke diagnosis?: No VTE Prior VTE?: No VTE Risk Level:: Medical - moderate - high VTE Device Contraindication: Treatment Not Indicated VTE Drug Contraindication: N/A - Med Ordered
[2024-07-29] MEDS: lamoTRIgine 100 MG TABLET 300 MG PO (21:07)
[2024-07-29] MEDS: Mirtazapine 15 MG TABLET PO (21:07)
[2024-07-29] MEDS: Sennosides 8.6 MG TABLET PO (21:07)
[2024-07-29] MEDS: Acetaminophen 325 MG TABLET 650 MG PO (21:07)
[2024-07-29] MEDS: Montelukast Sodium 10 MG TABLET PO (21:07)
[2024-07-29] MEDS: cefTRIAXone sodium 1 GM in 0.9 % Sodium Chloride 50 ML IV (21:12)
[2024-07-29] MEDS: Enoxaparin Sodium 40 MG/0.4 ML SYRINGE SUBCUT (21:12)
[2024-07-29] MEDS: Azithromycin 500 MG in 0.9 % Sodium Chloride 250 ML 125 MG IV (22:11)
[2024-07-30] VITALS (9 sets, daily range): BP systolic 135–158; BP diastolic 57–75; PULSE 61–77; RESP 18–20; TEMP 36.2–36.7; O2SAT 92–99
[2024-07-30] MEDS: Omeprazole 20 MG CAPSULE.DR PO (05:32)
[2024-07-30] MEDS: Fluticasone/Vilanterol 200/25 BLST.W.DEV 1 PUFF INHALE (07:16)
[2024-07-30] MEDS: Salmeterol Xinafoate 50 MCG BLST.W.DEV 1 PUFF INHALE ×2 (07:16→19:53)
[2024-07-30] MEDS: Albuterol/Iprat 2.5/0.5MG 3 ML AMPUL.NEB INHALE ×3 (07:18→19:54)
[2024-07-30] MEDS: Metoprolol Succinate ER 50 MG TAB.ER.24H PO (08:05)
[2024-07-30] MEDS: Gabapentin 100 MG CAPSULE PO ×3 (08:05→22:23)
[2024-07-30] MEDS: Vilazodone HCL 40 MG TABLET PO (08:05)
[2024-07-30] MEDS: Docusate Sodium 100 MG CAPSULE PO (08:05)
[2024-07-30] MEDS: lamoTRIgine 100 MG TABLET 200 MG PO (08:05)
[2024-07-30] MEDS: dexAMETHasone 6 MG TABLET PO (08:06)
[2024-07-30] MEDS: Aspirin Enteric Coated 81 MG TABLET.DR PO (08:06)
[2024-07-30] MEDS: Cholecalciferol (Vitamin D3) 25 MCG TABLET 50 MCG PO (08:06)
[2024-07-30] MEDS: ARIPiprazole 10 MG TABLET PO (08:06)
[2024-07-30] MEDS: Fluticasone Propionate Nasal 16 GM SPRAY 1 SPRAY NOSTRIL-B (08:10)
[2024-07-30] MEDS: 0.9 % Sodium Chloride Flush 3 ML SYRINGE IVFLUSH ×2 (08:12→15:27)
--- NOTE | 2024-07-30 10:02 | HO.PM.IMPN ---
Subjective Subjective Date of Service: 07/30/24 Interval History: a bit better than yesterday, still sob Physical Exam Vital Signs: Vital Signs: Last Vital Signs Temp 97.8 F 07/30/24 07:24 Pulse 65 07/30/24 07:24 Resp 20 07/30/24 07:24 BP 158/74 H 07/30/24 07:24 Pulse Ox 95 07/30/24 07:24 O2 Del Method Nasal Cannula 07/30/24 07:24 O2 Flow Rate 2 07/30/24 07:24 Oxygen Flow Rate 2 07/27/24 14:05 BMI result Body Mass Index 37.5 General: AO X 3, no acute distress Resp: diminished bilateral, no accessory muscles used CVS: S1,S2,RRR GI: soft, non tender, non distended Neuro: motor grossly intact, alert Psych: appropriate affect, appropriate insight Objective Data Active Medications Acetaminophen (Acetaminophen 325 Mg Tablet) 650 mg PO Q6H PRN PRN Reason: Pain, Mild (Pain Scale 1-3), fever or headache Last Admin: 07/29/24 21:07 Dose: 650 mg Documented By: GERARD Albuterol Sulfate (Albuterol Sulfate (0.083%) 2.5 Mg/3 Ml Vial.Neb) 2.5 mg INHALE Q6H PRN PRN Reason: Shortness Of Breath Or Wheezing Albuterol/Ipratropium (Albuterol/Iprat 2.5/0.5mg 3 Ml Ampul.Neb) 3 ml INHALE RQ4H WHILE AWAKE [facility] Last Admin: 07/30/24 07:18 Dose: 3 ml Documented By: ANGELICA Albuterol/Ipratropium (Albuterol/Iprat 2.5/0.5mg 3 Ml Ampul.Neb) 3 ml INHALE Q4H PRN PRN Reason: Wheezing Aripiprazole (Aripiprazole 10 Mg Tablet) 10 mg PO DAILY [facility] Last Admin: 07/30/24 08:06 Dose: 10 mg Documented By: MICHAEL Aspirin (Aspirin Enteric Coated 81 Mg Tablet.) 81 mg PO DAILY [facility] Last Admin: 07/30/24 08:06 Dose: 81 mg Documented By: MICHAEL Benzonatate (Benzonatate 100 Mg Capsule) 100 mg PO TID PRN PRN Reason: Cough Calcium Carbonate (Calcium Carbonate 750 Mg Tab.Chew) 750 mg PO Q4H PRN PRN Reason: Heartburn Cyclobenzaprine HCl (Cyclobenzaprine Hcl 5 Mg Tablet) 5 mg PO Q8H PRN PRN Reason: Muscle Pain Dexamethasone (Dexamethasone 6 Mg Tablet) 6 mg PO DAILY [facility] Last Admin: 07/30/24 08:06 Dose: 6 mg Documented By: MICHAEL Docusate Sodium (Docusate Sodium 100 Mg Capsule) 100 mg PO DAILY [facility] Last Admin: 07/30/24 08:05 Dose: 100 mg Documented By: MICHAEL Enoxaparin Sodium (Enoxaparin Sodium 40 Mg/0.4 Ml Syringe) 40 mg SUBCUT Q24H [facility] Last Admin: 07/29/24 21:12 Dose: 40 mg Documented By: GERARD Fluticasone Propionate (Fluticasone Propionate Nasal 16 Gm [place]) 1 spray NOSTRIL-B DAILY [facility] Last Admin: 07/30/24 08:10 Dose: 1 spray Documented By: MICHAEL Fluticasone/Vilanterol (Fluticasone/Vilanterol 200/25 Blst.W.Dev) 1 puff INHALE RDAILY [facility] Last Admin: 07/30/24 07:16 Dose: 1 puff Documented By: ANGELICA Gabapentin (Gabapentin 100 Mg Capsule) 100 mg PO TID [facility] Last Admin: 07/30/24 08:05 Dose: 100 mg Documented By: MICHAEL Ceftriaxone Sodium 1 gm/ (Sodium Chloride) 50 mls @ 100 mls/hr IV Q24H [facility] Last Infusion: 07/29/24 22:13 Dose: Infused Documented By: GERARD Azithromycin 500 mg/ Sodium (Chloride) 250 mls @ 125 mls/hr IV Q24H [facility] Last Infusion: 07/30/24 00:25 Dose: Infused Documented By: GERARD Lactulose (Lactulose 20 Gm/30 Ml Solution) 20 gm PO DAILY PRN PRN Reason: Constipation Lamotrigine (Lamotrigine 100 Mg Tablet) 300 mg PO BEDTIME [facility] Last Admin: 07/29/24 21:07 Dose: 300 mg Documented By: GERARD Lamotrigine (Lamotrigine 100 Mg Tablet) 200 mg PO DAILY [facility] Last Admin: 07/30/24 08:05 Dose: 200 mg Documented By: MICHAEL Magnesium Hydroxide (Milk Of Magnesia 30 Ml Oral.Susp) 30 ml PO DAILY PRN PRN Reason: Constipation Melatonin (Melatonin 3 Mg Tablet) 6 mg PO BEDTIME PRN PRN Reason: Insomnia Metoprolol Succinate (Metoprolol Succinate Er 50 Mg Tab.Er.24h) 50 mg PO DAILY [facility]; Protocol Last Admin: 07/30/24 08:05 Dose: 50 mg Documented By: MICHAEL Mirtazapine (Mirtazapine 15 Mg Tablet) 15 mg PO BEDTIME [facility]PL[facility]ED BY [facility] Last Admin: 07/29/24 21:07 Dose: 15 mg Documented By: GERARD Montelukast Sodium (Montelukast Sodium 10 Mg Tablet) 10 mg PO BEDTIME [facility]PL[facility]ED BY [facility] Last Admin: 07/29/24 21:07 Dose: 10 mg Documented By: GERARD Omeprazole (Omeprazole 20 Mg Capsule.Dr) 20 mg PO DAILY@0630 [facility] Last Admin: 07/30/24 05:32 Dose: 20 mg Documented By: GERARD Ondansetron HCl (Ondansetron Hcl 4 Mg/2 Ml Vial) 4 mg IVPUSH Q8H PRN PRN Reason: Nausea and Vomiting Salmeterol Xinafoate (Salmeterol Xinafoate 50 Mcg Blst.W.Dev) 1 puff INHALE RBID REPLACED BY [facility] Last Admin: 07/30/24 07:16 Dose: 1 puff Documented By: ANGELICA Senna (Sennosides 8.6 Mg Tablet) 8.6 mg PO BEDTIME REPLACED BY [facility] Last Admin: 07/29/24 21:07 Dose: 8.6 mg Documented By: GERARD Sodium Chloride (0.9 % Sodium Chloride Flush 3 Ml Syringe) 3 ml IVFLUSH QSHIFT REPLACED BY [facility] Last Admin: 07/30/24 08:12 Dose: 3 ml Documented By: MICHAEL Tramadol HCl (Tramadol Hcl 50 Mg Tablet) 50 mg PO Q6H PRN PRN Reason: Pain, Moderate(Pain Scale 4-6) Vilazodone HCl (Vilazodone Hcl 40 Mg Tablet) 40 mg PO DAILY [facility] BY [facility] Last Admin: 07/30/24 08:05 Dose: 40 mg Documented By: MICHAEL Vitamin D (Cholecalciferol (Vitamin D3) 25 Mcg Tablet) 50 mcg PO DAILY [facility] Last Admin: 07/30/24 08:06 Dose: 50 mcg Documented By: MICHAEL Labs 07/29/24 06:19 07/29/24 06:19 Assessment and Plan (1) COPD (chronic obstructive pulmonary disease): Status: Acute Plan 69F PMH chronic hypoxic and hypercapnic respiratory failure due to COPD on 3 L at rest and 6 L on activity, hypertension, osteoporosis, mood disorder presented with cough and shortness of breath Acute on chronic hypoxic and hypercapnic respiratory failure secondary to recent COVID and pneumonia complicated by COPD with acute decompensation Continue ceftriaxone azithromycin, Decadron BiPAP at night hypoxia now at baseline, but still feeling very weak and sob will add mucinex mood disorder Continue lamotrigine Hypertension Continue Toprol Obesity Weight loss recommended DVT prophylaxis with Lovenox Full Code reason for continued hospitalization: Still feeling short of breath Quality Stroke Does the patient have a stroke diagnosis?: No VTE Prior VTE?: No VTE Risk Level:: Medical - moderate - high VTE Device Contraindication: Treatment Not Indicated VTE Drug Contraindication: N/A - Med Ordered
[2024-07-30] MEDS: guaiFENesin DM 600/30 1 TAB TAB.ER.12H PO ×2 (10:28→22:23)
[2024-07-30] MEDS: Azithromycin 500 MG in 0.9 % Sodium Chloride 250 ML 125 MG IV (22:19)
[2024-07-30] MEDS: cefTRIAXone sodium 1 GM in 0.9 % Sodium Chloride 50 ML IV (22:20)
[2024-07-30] MEDS: Enoxaparin Sodium 40 MG/0.4 ML SYRINGE SUBCUT (22:22)
[2024-07-30] MEDS: Mirtazapine 15 MG TABLET PO (22:23)
[2024-07-30] MEDS: Melatonin 3 MG TABLET 6 MG PO (22:23)
[2024-07-30] MEDS: lamoTRIgine 100 MG TABLET 300 MG PO (22:23)
[2024-07-30] MEDS: Sennosides 8.6 MG TABLET PO (22:23)
[2024-07-30] MEDS: Montelukast Sodium 10 MG TABLET PO (22:23)
[2024-07-31] VITALS (7 sets, daily range): BP systolic 144–159; BP diastolic 65–76; PULSE 62–71; RESP 17–20; TEMP 36.2–37.1; O2SAT 92–99
[2024-07-31] MEDS: 0.9 % Sodium Chloride Flush 3 ML SYRINGE IVFLUSH ×2 (00:51→08:15)
[2024-07-31] MEDS: Omeprazole 20 MG CAPSULE.DR PO (05:57)
--- NOTE | 2024-07-31 06:12 | PC.NURSE ---
Assumed care of patient since 1844 on 07/30/24. Patient remains AAOX4 with BIPAP on throughout the night. On 3 l O2 after BIPAP removal. POX 92-93%. Azithromycin 500 mg iv and ceftriaxone 1 gm given as ordered. Patient is Sinus Bradycardia to NSR on school lunch monitor. VSS. Afebrile. No signs of acute respiratory distress noted.
[2024-07-31] MEDS: dexAMETHasone 6 MG TABLET PO (08:16)
[2024-07-31] MEDS: Gabapentin 100 MG CAPSULE PO (08:16)
[2024-07-31] MEDS: Aspirin Enteric Coated 81 MG TABLET.DR PO (08:16)
[2024-07-31] MEDS: Vilazodone HCL 40 MG TABLET PO (08:16)
[2024-07-31] MEDS: guaiFENesin DM 600/30 1 TAB TAB.ER.12H PO (08:16)
[2024-07-31] MEDS: ARIPiprazole 10 MG TABLET PO (08:16)
[2024-07-31] MEDS: Fluticasone Propionate Nasal 16 GM SPRAY 1 SPRAY NOSTRIL-B (08:16)
[2024-07-31] MEDS: lamoTRIgine 100 MG TABLET 200 MG PO (08:17)
[2024-07-31] MEDS: Cholecalciferol (Vitamin D3) 25 MCG TABLET 50 MCG PO (08:17)
[2024-07-31] MEDS: Docusate Sodium 100 MG CAPSULE PO (08:17)
[2024-07-31] MEDS: Metoprolol Succinate ER 50 MG TAB.ER.24H PO (08:17)
[2024-07-31] MEDS: Salmeterol Xinafoate 50 MCG BLST.W.DEV 1 PUFF INHALE (08:34)
[2024-07-31] MEDS: Albuterol/Iprat 2.5/0.5MG 3 ML AMPUL.NEB INHALE ×2 (08:34→12:36)
[2024-07-31] MEDS: Fluticasone/Vilanterol 200/25 BLST.W.DEV 1 PUFF INHALE (08:34)
--- NOTE | 2024-07-31 09:25 | PM.DS ---
DS: Providers Provider Date of Service: 07/31/24 Date of admission: 07/27/24 19:18 Date of discharge: 07/31/24 Primary care physician: Yann Manzanares MD DS: Diagnosis Discharge Diagnosis (1) COPD (chronic obstructive pulmonary disease): Status: Acute DS: Summary Hospital Course Hospital Course: from initial hpi: 69-year-old female with a PMH significant for?end stage COPD on 3L NC at rest and 6L with activity, chronic hypoxic and hypercarbic respiratory failure on [employer]ology respirator at night, follows with Dr. Acharya?in pulmonology, HTN, hx of tracheostomy, osteoporosis, and mood disorder who presents from senior living to the ED with?cough, SOB, fatigue. Patient states she tested positive for COVID 2 weeks ago after being infected by someone visiting her for peer support. At that time he felt run down, tired, and had difficulty breathing. Developed a cough approximately 1 week ago, and has since had increasing SOB, and difficulty breathing. Patient states she runs out of breath while just walking to the bathroom or across the room to the kitchen. Had been noted to desat to 72% on her home O2. Subjective fever and chills Denies any chest pain/pressure, or palpitations. No nausea, vomiting, abdominal pain. Denies any increased lower leg edema. Patient reports has been using her home inhalers, but they have been offering very little relief. In the ED pt was tachypneic up to 22, hypertensive up to 148/65, and desatting as low as 88% on home 2 L NC. Labs were significant for bicarb 43, BUN 21, and BUN 135. No leukocytosis. Stable H&H. No significant electrolyte abnormalities. UA negative for UTI. Continues to past positive for COVID. CTA of chest showed no evidence of pulmonary embolism, but did show irregular patchy airspace opacity in left upper lobe concerning for inflammatory or infectious in nature. EKG demonstrated sinus rhythm with PACs and no evidence of significant ST elevations or depressions. Pt was treated with Solu-Medrol, DuoNebs, acetaminophen, ceftriaxone, and azithromycin. Pt will be admitted to the hospital for acute on chronic hypoxic respiratory failure in the setting of COPD exacerbation with superimposed pneumonia likely secondary to recent COVID infection. hospital course: Patient was admitted for acute on chronic hypoxic and hypercapnic respiratory failure secondary to recent COVID infection and pneumonia complicated by COPD with acute decompensation. She was treated with IV ceftriaxone and azithromycin as well as Decadron. Her hypoxia resolved and she is now back to her baseline 3 L at rest and 6 L with activity. Mucinex was added to improve expectoration. Patient feels close to baseline and will be discharged on 3 more days of p.o. cefuroxime and 5 more days of p.o. Decadron. For mood disorder was continued on lamotrigine. For hypertension was continued on Toprol. For obesity weight loss recommended. Time Attestation Discharge Coordination Time (in mins): 32 Quality: Safe Use of Opioids Does Pt have an Active Cancer Diagnosis on the Problem List?: No Quality: Stroke Does the patient have a stroke diagnosis?: No Physical Exam Vital Signs: Vital Signs: Last Vital Signs Temp 97.1 F 07/31/24 07:34 Pulse 62 07/31/24 08:34 Resp 20 07/31/24 08:34 BP 159/76 H 07/31/24 07:34 Pulse Ox 96 07/31/24 07:34 O2 Del Method BiPAP 07/31/24 07:34 O2 Flow Rate 3 07/30/24 20:00 Oxygen Flow Rate 2 07/27/24 14:05 BMI result Body Mass Index 37.5 General: AO X 3, no acute distress Resp: diminished bilateral, no accessory muscles used CVS: S1,S2,RRR GI: soft, non tender, non distended Neuro: motor grossly intact, alert Psych: appropriate affect, appropriate insight DS: Data Data Completed and Pending Completed studies during hospitalization [Text1]: Procedures Assistance with Respiratory Ventilation, Less than 24 Consecutive Hours, Continuous Positive Airway Pressure (06/21/24) Discharge Plan Discharge Anticipated Discharge Date/Time: 07/31/24 09:21 Patient Disposition: Xfer Other Discharge Diagnosis: copd, covid Referrals: Yann Manzanares MD [Primary Care Provider] - 1 Week Discharge Medications: New dexamethasone 6 mg Tablet 6 mg PO DAILY Qty: 5 0RF Mucus DM 30-600 mg Tablet Extended Release 12 Hr 1 tab PO BID Qty: 0 0RF cefuroxime axetil 500 mg tablet 500 mg PO BID Qty: 6 0RF Continued albuterol sulfate 2.5 mg /3 mL (0.083 %) solution for nebulization 2.5 mg inhalation QID 30 Days Qty: 360 12RF acetaminophen 500 mg Tablet 1,000 mg PO Q8H PRN (Reason: Headache) aspirin 81 mg Tablet,Delayed Release (Dr/Ec) 81 mg PO DAILY alendronate [Fosamax] 70 mg Tablet 70 mg PO SA lamotrigine 150 mg Tablet 300 mg PO BEDTIME lamotrigine 200 mg Tablet 200 mg PO DAILY montelukast 10 mg Tablet 10 mg PO BEDTIME albuterol sulfate [Proventil HFA] 90 mcg/actuation Hfa Aerosol Inhaler 2 puff INHALATION QID PRN (Reason: Respiratory Distress) cholecalciferol (vitamin D3) [Vitamin D3] 50 mcg (2,000 unit) Capsule 50 mcg PO DAILY mirtazapine 15 mg tablet 15 mg PO BEDTIME metoprolol succinate 50 mg Tablet Extended Release 24 Hr 50 mg PO DAILY betamethasone dipropionate 0.05 % cream 1 appl topical Q12H PRN (Reason: Dermititis ) cyclobenzaprine 5 mg tablet 5 mg PO Q8H PRN (Reason: Muscle Pain) calcium carbonate-vitamin D3 [Calcium 500 + D] 500 mg-5 mcg (200 unit) Tablet 1 tab PO BID meloxicam 15 mg tablet 15 mg PO DAILY tramadol 50 mg tablet 50 mg PO Q6H PRN (Reason: Pain) ibuprofen 600 mg tablet 600 mg PO Q8H PRN (Reason: Muscle Pain) lactulose 10 gram/15 mL solution 30 ml PO DAILY PRN (Reason: Constipation) fluocinolone acetonide oil [DermOtic Oil] 0.01 % Drops 4 drp OTIC (EARS) Q48H diclofenac sodium 1 % gel 1 g topical Q8H PRN (Reason: Pain) albuterol sulfate 2.5 mg /3 mL (0.083 %) solution for nebulization 2.5 mg inhalation Q6H PRN (Reason: Shortness Of Breath Or Wheezing) theophylline 200 mg tablet extended release 12 hr 200 mg PO BID benzonatate 100 mg capsule 100 mg PO Q8H PRN (Reason: Cough) docusate sodium 100 mg capsule 100 mg PO DAILY pantoprazole 40 mg tablet,delayed release (DR/EC) 40 mg PO DAILY@0630 Serevent Diskus 50 mcg/dose blister with device 1 inh inhalation BID fluticasone furoate-vilanterol [Breo Ellipta] 200-25 mcg/dose blister with device 1 inh INHALATION DAILY sennosides [Senokot] 8.6 mg tablet 8.6 mg PO BEDTIME aripiprazole 15 mg tablet 10 mg PO DAILY Fish Oil 300-500 mg capsule 1 cap PO BID gabapentin 100 mg capsule 100 mg PO TID furosemide [Lasix] 20 mg tablet 20 mg PO DAILY 7 Days Qty: 7 0RF (DME) nebulizers Misc See Rx Instructions .Route Rx Instructions: As directed fluticasone propionate 50 mcg/actuation spray,suspension 1 spray intranasal DAILY vilazodone 40 mg tablet 40 mg PO DAILY (DME) Oxygen Home Use Kit See Rx Instructions .Route Rx Instructions: As directed Discharge Orders: Discharge Order (Routine); Ordered 07/31/24 Ordered By: Jose Grfifin Diet: Advance to usual diet Activity on Discharge: As tolerated Stand Alone Forms: Patient Portal Discharge page Print Language: Tamazight Care Plan Goals: recovery Health Concerns: covid, copd Plan of Treatment: 3 more days ceftin, 5 more days decadron Assessment: see above
--- NOTE | 2024-07-31 11:40 | MHC.CM.PN ---
Pt is medically cleared for discharge back to half-way today via BLS/[facility]. senior living orders were signed by and emailed back to the half-way nurse telephone information supervisor Harmony.
== END 2024-07-31 13:41 | disposition other institution (70) | DRG 193 ==
LOC: HO.ED 15:02 → HO.EDOVER 19:26 → HO.IMC 22:41
PROVIDERS: Admitting Provider Student in an Organized Health Care Education/Training Program; Emergency Provider Emergency Medicine; PCP Student in an Organized Health Care Education/Training Program; Visit Provider Internal Medicine
DX: J18.9 Pneumonia, unspecified organism (principal); J96.21 Acute and chronic respiratory failure with hypoxia; U07.1 COVID-19; J96.22 Acute and chronic respiratory failure with hypercapnia; J44.1 Chronic obstructive pulmonary disease with (acute) exacerbation; J44.0 Chronic obstructive pulmonary disease with (acute) lower respiratory infection; I10 Essential (primary) hypertension; E66.9 Obesity, unspecified; Z68.37 Body mass index [BMI] 37.0-37.9, adult; F39 Unspecified mood [affective] disorder; Z87.891 Personal history of nicotine dependence; Z99.81 Dependence on supplemental oxygen; Z79.51 Long term (current) use of inhaled steroids; Z79.899 Other long term (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 therapy
CPT/HCPCS: 0241U; 36415; 71275; 80048; 80053; 81001; 82803; 83735; 83880; 84484; 85025; 85027; 93005; 94640; 94660; 99285; J0131; J0456; J0696; J1650; J2919; J8540; Q9967

== ENCOUNTER → 2024-07-27 19:18 | Outpatient (BNV) | payer MEDICARE, MEDICAID, SELFPAY | PROVIDERS: Admitting Provider Student in an Organized Health Care Education/Training Program; Emergency Provider Emergency Medicine; PCP Student in an Organized Health Care Education/Training Program; Visit Provider Student in an Organized Health Care Education/Training Program | DX: J44.9 Chronic obstructive pulmonary disease, unspecified (principal) | CPT/HCPCS: 99223; 99232; 99239 ==

== ENCOUNTER 2024-08-05 13:42 | Emergency (ER) | payer MEDICARE, MEDICAID, SELFPAY ==
--- NOTE | ~2024-08-05 | XR_ITS ---
EXAMINATION: XR CHEST CLINICAL INFORMATION: Weakness. COMPARISON: Chest CT dated July 27, 2024. Chest x-ray dated June 21, 2024. TECHNIQUE: 2 views of the chest were obtained. FINDINGS: There has been no gross significant radiographic change compared with June 21, 2024. Examination again demonstrates diffuse bilateral coarse interstitial prominence with a peripheral and basilar predominance. Superimposed nodular densities in the left upper lobe remain as well. No consolidation, effusion, or pneumothorax is seen. Suspect mild cardiomegaly. Mild atherosclerotic aorta. Mild degenerative changes of the spine. No significant radiographic change in mild compression deformity of T12. New mild compression deformity of T10. XR/XR chest 2V IMPRESSION: Mild compression deformity of T10, new compared with June 21, 2024. Recommend clinical correlation. Otherwise, no significant radiographic change. Diffuse bilateral coarse interstitial prominence with a peripheral and basilar predominance. Superimposed nodular densities in the left upper lobe. Electronically signed by: Dylon Silva MD 08/05/2024 03:35 PM EDT
[2024-08-05 13:48] VITALS: BP 153/72; PULSE 80; O2SAT 95
--- NOTE | 2024-08-05 13:53 | ECG_ITS ---
Test Reason : SOB Blood Pressure : / mmHG Vent. Rate : 070 BPM Atrial Rate : 070 BPM P-R Int : 138 ms QRS Dur : 080 ms QT Int : 374 ms P-R-T Axes : 063 071 056 degrees QTc Int : 403 ms Normal sinus rhythm Septal infarct , age undetermined Abnormal ECG When compared with ECG of 28-JUL-2024 14:56, QRS axis Shifted left Criteria for Lateral infarct are no longer Present Referred By: Megha Espinosa Electronically Signed By:SHANE NOVA
[2024-08-05 13:59] VITALS: BP 148/65; PULSE 78; RESP 24; TEMP 37.2; O2SAT 88; BMI 38.2
[2024-08-05 14:34] LABS: Appearance Urine Clear; Color Urine Yellow; Glucose Urine UA Negative (Negative); Leukocyte Esterase Urine Negative (Negative); Nitrite Urine Negative (Negative); Specific Gravity - Urine <= 1.005 (1.005-1.025); UMIC TRIGGER UACC YES; Urine Blood Small (1+) (Negative); Urine Ketones Negative (Negative); Urine Protein Trace mg/dL (Neg-Trace)
[2024-08-05 14:36] LABS: VBG Base Excess 24.9 mmol/L; VBG HCO3 54 mmol/L (22-26); VBG pCO2 83 mmHg; VBG pH 7.42 (7.32-7.43); VBG pO2 130 mmHg
[2024-08-05 14:37] LABS: Venous Blood Gas Refer to POC result
[2024-08-05] MEDS: Albuterol Sulfate 2.5 MG, Albuterol/Iprat 2.5/0.5MG 3 ML 3 ML INHALE (14:45)
[2024-08-05 14:47] VITALS: PULSE 70; RESP 18; O2SAT 95
[2024-08-05 14:52] LABS: Bacteria Urine None Seen (None Seen); Hyaline Casts Urine 0-2 /LPF (0-2); Squamous Epithelial Cell Urine 0-2 /HPF (0-2); WBC Urine 0-5 /HPF (0-5)
[2024-08-05 14:54] LABS: Troponin-I High Sensitivity 3.6 ng/L (<3.5-17.0)
[2024-08-05 14:56] LABS: Alanine Aminotransferase 17 U/L (0-31); Albumin Level 4.2 g/dL (3.5-5.0); Alkaline Phosphatase 77 U/L (39-117); Anion Gap 12 (12-20); Aspartate Amino Transferase 18 U/L (5-31); Bilirubin Total 0.2 mg/dL (0.0-1.0); Blood Urea Nitrogen 20 mg/dL (9-16); Calcium 9.3 mg/dL (8.4-10.2); Carbon Dioxide 44 mmol/L (22-29); Chloride 90 mmol/L (96-108); Creatinine Clr Calc Pharmacy 58.1; Estimated Glomerular Filt Rate 60; Glucose Random 150 mg/dL (60-115); Magnesium 1.8 mg/dL (1.6-2.6); Potassium 4.3 mmol/L (3.3-5.1); Sodium 142 mmol/L (135-145)
[2024-08-05] MEDS: methylPREDNISolone Sod Succ 125 MG/2 ML VIAL 60 MG IVPUSH (14:58)
[2024-08-05 15:12] LABS: Influenza A PCR NEGATIVE (Negative); Influenza B PCR NEGATIVE (Negative); Resp Syncy Virus RNA Qual PCR NEGATIVE (Negative); SARS COV2 PCR INHOUSE NEGATIVE (Negative)
[2024-08-05 15:24] LABS: Hemoglobin 10.8 g/dl (12.0-16.0); Mean Corpuscular HGB Conc 30.9 g/dl (31.0-35.0); Mean Corpuscular Hemoglobin 29.3 pg (27.0-33.0); Mean Corpuscular Volume 94.9 fL (80.0-98.0); Mean Platelet Volume 9.1 fL (9.4-12.3); Platelet Count 330 X10*3/uL (160-400); Red Blood Count 3.69 X10*6/uL (4.20-5.50); Red Cell Distribution Width 14.9 % (11.0-16.0); White Blood Count 8.9 X10*3/uL (4.8-10.8)
[2024-08-05 15:52] VITALS: BP 152/73; PULSE 79; RESP 18; O2SAT 94
[2024-08-05 16:01] LABS: SLIDE REVIEW MANUAL DIFF
--- NOTE | 2024-08-05 16:02 | MHC.EDTECH ---
pt placed on purewick
[2024-08-05 16:09] LABS: Band Neutrophils Percent 8 % (3-5); Basophils Abs Manual 0.1 X10*3/uL (0.0-0.2); Basophils Percent Manual 1 % (0-2); Lymphocytes Absolute Manual 0.5 X10*3/uL (1.2-4.9); Lymphocytes Percent Manual 6 % (20-40); Neutrophils Absolute Manual 8.3 X10*3/uL (2.0-8.3); Neutrophils Percent Manual 85 % (45-73)
[2024-08-05 16:11] LABS: Platelet Estimate NORMAL (NORMAL); Platelet Morphology Comment NORMAL; Polychromasia 1+ (0-2) /OIF; RBC Morphology NORMAL
--- NOTE | 2024-08-05 16:42 | ED.SOB ---
HPI - SOB/Dyspnea General Chief Complaint: Dyspnea Stated Complaint: WEAK/+COVID X1M,FROM [facility] PER EMS Time Seen by Provider: 08/05/24 16:21 Source: patient and EMS Mode of arrival: EMS Limitations: no limitations History of Present Illness ED Provider: Dr. Maria Luz Lu HPI Narrative: patient comes in the emergency room via ambulance from her longterm. Patient was discharged from this hospital 5 days ago for COPD exacerbation. Patient states that her staff thought that she was looking more tired than usual. Patient states that she does not feel any different than when she was discharged from the hospital. At baseline patient uses 3 L of oxygen . patient states that she has been coughing a bit more than usual. Patient tested positive for COVID 3 weeks ago. Patient states that since she was diagnosed with COVID, she has not been feeling back to baseline. Related Data Home Medications ?Medication ?Instructions ?Recorded ?Confirmed acetaminophen 500 mg tablet 1,000 mg PO Q8H PRN Headache 02/09/21 07/27/24 albuterol sulfate 90 mcg/actuation 2 puff inhalation QID PRN 02/09/21 07/27/24 aerosol inhaler (Proventil HFA) Respiratory Distress alendronate 70 mg tablet (Fosamax) 70 mg PO SA 02/09/21 07/27/24 aspirin 81 mg tablet,delayed 81 mg PO DAILY 02/09/21 07/27/24 release cholecalciferol (vitamin D3) 50 50 mcg PO DAILY 02/09/21 07/27/24 mcg (2,000 unit) capsule (Vitamin D3) lamotrigine 150 mg tablet 300 mg PO BEDTIME 02/09/21 07/27/24 lamotrigine 200 mg tablet 200 mg PO DAILY 02/09/21 07/27/24 montelukast 10 mg tablet 10 mg PO BEDTIME 02/09/21 07/27/24 mirtazapine 15 mg tablet 15 mg PO BEDTIME 09/10/21 07/27/24 sennosides 8.6 mg tablet (Senokot) 8.6 mg PO BEDTIME 09/10/21 07/27/24 metoprolol succinate 50 mg 50 mg PO DAILY 11/18/21 07/27/24 tablet,extended release 24 hr aripiprazole 15 mg tablet 10 mg PO DAILY 11/02/22 07/27/24 omega-3 fatty acids-fish oil 300 1 cap PO BID 11/02/22 07/27/24 mg-500 mg capsule (Fish Oil) Oxygen Home Use 04/15/23 05/17/24 fluticasone propionate 50 1 spray intranasal DAILY Allergies 04/15/23 07/27/24 mcg/actuation nasal spray,suspension nebulizers 04/15/23 05/17/24 vilazodone 40 mg tablet 40 mg PO DAILY 04/15/23 07/27/24 gabapentin 100 mg capsule 100 mg PO TID 09/20/23 07/27/24 fluticasone furoate 200 1 inh inhalation DAILY SOB 06/21/24 07/27/24 mcg-vilanterol 25 mcg/dose inhalation powder (Breo Ellipta) pantoprazole 40 mg tablet,delayed 40 mg PO DAILY@0606/21/24 07/27/24 release salmeterol 50 mcg/dose blister 1 inh inhalation BID SOB 06/21/24 07/27/24 powder for inhalation (Serevent Diskus) albuterol sulfate 2.5 mg/3 mL 2.5 mg inhalation Q6H PRN 07/27/24 07/27/24 (0.083 %) solution for nebulization Shortness Of Breath Or Wheezing benzonatate 100 mg capsule 100 mg PO Q8H PRN Cough 07/27/24 07/27/24 betamethasone dipropionate 0.05 % 1 appl topical Q12H PRN Dermititis 07/27/24 07/27/24 topical cream calcium carbonate 500 mg-vitamin 1 tab PO BID 07/27/24 07/27/24 D3 5 mcg (200 unit) tablet (Calcium 500 + D) cyclobenzaprine 5 mg tablet 5 mg PO Q8H PRN Muscle Pain 07/27/24 07/27/24 diclofenac sodium 1 % topical gel 1 g topical Q8H PRN Pain 07/27/24 07/27/24 docusate sodium 100 mg capsule 100 mg PO DAILY Constipation 07/27/24 07/27/24 fluocinolone acetonide oil 0.01 % 4 drp otic (ears) Q48H 07/27/24 07/27/24 ear drops (DermOtic Oil) ibuprofen 600 mg tablet 600 mg PO Q8H PRN Muscle Pain 07/27/24 07/27/24 lactulose 10 gram/15 mL oral 30 ml PO DAILY PRN Constipation 07/27/24 07/27/24 solution meloxicam 15 mg tablet 15 mg PO DAILY 07/27/24 07/27/24 theophylline 200 mg 200 mg PO BID 07/27/24 07/27/24 tablet,extended release,12 hr tramadol 50 mg tablet 50 mg PO Q6H PRN Pain 07/27/24 07/27/24 Previous Rx's ?Medication ?Instructions ?Recorded furosemide 20 mg tablet (Lasix) 20 mg PO DAILY 7 days #7 tabs 07/06/24 albuterol sulfate 2.5 mg/3 mL 2.5 mg (3 mL) inhalation QID 30 07/09/24 (0.083 %) solution for nebulization days #360 mL cefuroxime axetil 500 mg tablet 500 mg PO BID #6 tabs 07/31/24 dextromethorphan-guaifenesin 30 1 tab PO BID #0 tabs 07/31/24 mg-600 mg tablet extended hr (Mucus DM) dexamethasone 6 mg tablet 6 mg PO DAILY #5 tabs 08/01/24 guaifenesin 1,200 mg tablet, 1,200 mg PO BID #10 tabs 08/01/24 extended release 12 hr (Mucinex) guaifenesin 400 mg tablet 400 mg PO Q4H PRN cough #20 tabs 08/05/24 Allergies Allergy/AdvReac Type Severity Reaction Status Date / Time codeine [Codeine] Allergy Intermediate RESTLESS/RA Verified 08/05/24 14:03 SH haloperidol [Haldol] Allergy Intermediate Palpitation Verified 08/05/24 14:03 s Sulfa (Sulfonamide Allergy Intermediate HIVES Verified 08/05/24 14:03 Antibiotics) Review of Systems Review of Systems: Constitutional : No Weight loss, No Fever, No Chills, No Night Sweats, Complaining of fatigue ENT/Mouth : No Hearing loss, No Ear Pain, No Nasal Congestion, No Sinus Pain, No Hoarseness, No sore throat, No Rhinorrhea, No Swallowing Difficulty Eyes: No Eye Pain, No Swelling, No Redness, No Foreign Body, No Discharge, No Vision Changes Cardiovascular : No Chest Pain, No SOB, No Dyspnea on Exertion, No Orthopnea, No Edema, No Palpitations Respiratory : No Cough, No Sputum, No Wheezing, No Smoke Exposure, No Dyspnea Gastrointestinal : No Nausea, No Vomiting, No Diarrhea, No Constipation, No abdominal Pain, No Hematochezia, No Melena Genitourinary : no irregular bleeding, No Dysuria, No Urinary Frequency, No Hematuria, No Urinary Incontinence, No Urgency, No Flank Pain, No Urinary Flow Changes, No Hesitancy Musculoskeletal : No joint pain, No Myalgias, No Joint Swelling Skin : No Skin Lesions, No rash Neuro : No Weakness, No Numbness, No Paresthesias, No Loss of Consciousness, No Dizziness, No Headache Psych : No Anxiety/Panic, No Depression, No SI/HI/AH/VH, No Social Issues, Heme/Lymph: No Bruising, No Bleeding,No Lymphadenopathy Endocrine : No Polyuria, No Polydipsia, No Temperature Intolerance [facility] Past Medical History Medical History Rib fractures Pulmonary nodule Tubular adenoma of colon (~2006) Osteopenia (~2012) Bronchopneumonia Chest pain Chronic respiratory alkalosis ILD (interstitial lung disease) CO2 retention Acute on chronic respiratory failure with hypoxia and hypercapnia Bipolar depression Eczema Limb swelling Insomnia Bronchitis Vasomotor rhinitis COPD (chronic obstructive pulmonary disease) Chronic respiratory failure Fall Acute metabolic encephalopathy Acute and chronic respiratory failure with hypercapnia Surgical History History of carpal tunnel surgery (~2000) History of ventral hernia repair (~2003) History of left inguinal hernia repair (~1995) History of tracheostomy (~2016) History of cataract surgery (~2018) History of colonoscopy Family History Family History Other Hypertension Social History Social History Household Members: Other Household Members Other:: Intermediate [employer] Net Housing: Other Housing Other:: longterm Are you a primary care transition coordinator to a significant other at home: No Do you presently have visiting nurse 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) Alcohol intake: unknown Patient Tobacco Use Status: Former Tobacco user Tobacco use type: Cigarette Years Smoked: 20+ years Smoked in Last 30 Days: No e-Cigarette/Vaping Use: Never Used Second Hand Smoke Exposure: No Use of substances other than those prescribed or required for medical reasons: No Advance Directives: Yes Advance Directives on File: Yes Advance Directives Date on File: 11/30/21 Do you have a plan to hurt others: No Plan service: No Current occupational status: disabled Physical Exam Vital Signs: Vital Signs: Last Vital Signs Temp 98.9 F 08/05/24 13:59 Pulse 79 08/05/24 15:52 Resp 18 08/05/24 15:52 BP 152/73 H 08/05/24 15:52 Pulse Ox 94 08/05/24 15:52 O2 Del Method Nasal Cannula 08/05/24 15:52 O2 Flow Rate 3 08/05/24 15:52 Oxygen Flow Rate 3 08/05/24 13:59 BMI result Body Mass Index 38.2 Const: Other: Appearance: Alert. Oriented X3. No acute distress. Eyes: Pupils equal, round and reactive to light. ENT: Pharynx normal. Neck: Normal inspection. Neck supple. No lymph nodes noted. No crepitus CVS: Normal heart rate and rhythm. Pulses normal. Normal S1 and S2 Respiratory: No respiratory distress. Bilateral rales, no crackles,No Wheezing. No rales Abdomen: Soft and nontender. No rigidity. No distention. Skin: Skin warm and dry. Normal skin color. Normal skin turgor. Extremities: No lower extremity edema. No Lacerations. No Rash Neuro: Oriented X 3. No motor deficit. No sensory deficit. Moving all extremities. No slurred speech. CN 2 through 12 grossly intact Psych: calm, cooperative, normal affect Medications Administered Discontinued Medications Generic Name Dose Route Start Last Admin Trade Name Maximilian PRN Reason Stop Dose Admin Albuterol Sulfate 2.5 mg/ 0 mg 08/05/24 14:43 08/05/24 14:45 Albuterol/Ipratropium 3 ml INHALE 08/05/24 14:44 5 dose ONCE ONE Administration Methylprednisolone Sodium Succinate 60 mg 08/05/24 14:11 08/05/24 14:58 Methylprednisolone Sod Succ 125 Mg/2 Ml Vial IVPUSH 08/05/24 14:12 60 mg ONCE ONE Administration Medical Decision Making Medical Decision Making [facility] Narrative: my interpretation of chest x-ray: No obvious abnormality. Radiology report: Mild compression deformity of T10, new from May of 2024. Patient has not do a densities in the left upper lobe. However, this were seen on her previous admission when patient was diagnosed with pneumonia. - My interpretation of labs, normal hematology and chemistry. Patient's pH is 7.42, pCO2 83, bicarb 54. This levels are chronic and patient is compensated. Patient is awake and alert, no somnolence. Troponin normal 3.6. serology negative for COVID, RSV and influenza - Other than having a bit more cough and chronic fatigue, patient has no new symptoms. Patient is saturating 92-93% on her 3 L that she uses at home. - Patient will be sent with a prescription of prednisone and Antibiotics, 1st dose given here in here in the ED - here in the emergency room, patient was given a nebulization treatment, azithromycin, Solu-Medrol Differential Diagnosis Differential Diagnoses: The differential diagnosis associated with the presentation includes ( chronic lung disease, asthma, deconditioning) Admission/Observation Consideration of admission/observation: Escalation of care including admission/observation considered ( given patient's recent hospital discharge on symptoms, observation was considered) Lab Data MDM Lab Attestation statement: I reviewed the patient's lab results. 08/05/24 15:18 08/05/24 14:20 Labs: Lab Results 08/05/24 08/05/24 08/05/24 Range/Units 14:20 14:32 15:18 WBC 8.9 (4.8-10.8) X10*3/uL RBC 3.69 L (4.20-5.50) X10*6/uL Hgb 10.8 L (12.0-16.0) g/dl Hct 35.0 L (37.0-47.0) % MCV 94.9 (80.0-98.0) fL MCH 29.3 (27.0-33.0) pg MCHC 30.9 L (31.0-35.0) g/dl RDW 14.9 (11.0-16.0) % Plt Count 330 (160-400) X10*3/uL MPV 9.1 L (9.4-12.3) fL Immature Gran % (Auto) Cancelled Neut % (Auto) Cancelled Lymph % (Auto) Cancelled [place] % (Auto) Cancelled Eos % (Auto) Cancelled Baso % (Auto) Cancelled Lymph # (Auto) Cancelled [place] # (Auto) Cancelled Eos # (Auto) Cancelled Baso # (Auto) Cancelled Abs Immat Gran (auto) Cancelled Absolute Neuts (auto) Cancelled Absolute Nucleated RBC 0.000 (0.0-0.012) X10*3/uL Nucleated RBC % (auto) 0.0 (0.0-0.2) /100WBC Neutrophils % (Manual) 85 H (45-73) % Band Neutrophils % 8 H (3-5) % Lymphocytes % (Manual) 6 L (20-40) % Basophils % (Manual) 1 (0-2) % Abs Neuts (Manual) 8.3 (2.0-8.3) X10*3/uL Lymphocytes # (Manual) 0.5 L (1.2-4.9) X10*3/uL Basophils # (Manual) 0.1 (0.0-0.2) X10*3/uL Platelet Estimate NORMAL (NORMAL) Plt Morphology Comment NORMAL RBC Morphology NORMAL Polychromasia 1+ (0-2) /OIF Smear Tech's Comments MANUAL DIFF VBG pH 7.42 (7.32-7.43) VBG pCO2 83 mmHg VBG pO2 130 mmHg VBG HCO3 54 H (22-26) mmol/L VBG O2 Saturation 100.0 % VBG Base Excess 24.9 mmol/L Sodium 142 (135-145) mmol/L Potassium 4.3 D (3.3-5.1) mmol/L Chloride 90 L (96-108) mmol/L Carbon Dioxide 44 H* D (22-29) mmol/L Anion Gap 12 (12-20) BUN 20 H (9-16) mg/dL Creatinine 0.93 (0.5-1.4) mg/dL Estim Creat Clear Calc 58.1 Estimated GFR 60 Random Glucose 150 H (60-115) mg/dL Calcium 9.3 D (8.4-10.2) mg/dL Magnesium 1.8 (1.6-2.6) mg/dL Total Bilirubin 0.2 (0.0-1.0) mg/dL AST 18 (5-31) U/L ALT 17 (0-31) U/L Alkaline Phosphatase 77 (39-117) U/L Troponin I High Sens 3.6 (<3.5-17.0) ng/L Total Protein 7.0 (6.5-8.0) g/dL Albumin 4.2 (3.5-5.0) g/dL Urine Color Yellow Urine Appearance Clear Urine pH 7.0 (5.0-9.0) Ur Specific [place] <= 1.005 (1.005-1.025) Urine Protein Trace (Neg-Trace) mg/dL Urine Glucose (UA) Negative (Negative) mg/dL Urine Ketones Negative (Negative) mg/dL Urine Blood Small (1+) H (Negative) Urine Nitrite Negative (Negative) Ur Leukocyte Esterase Negative (Negative) Urine RBC 3-5 H (0-2) /HPF Urine WBC 0-5 (0-5) /HPF Ur Squamous Epith Cells 0-2 (0-2) /HPF Urine Bacteria None Seen (None Seen) Hyaline Casts 0-2 (0-2) /LPF Influenza Type A (PCR) NEGATIVE (Negative) Influenza Type B (PCR) NEGATIVE (Negative) RSV RNA Qual (PCR) NEGATIVE (Negative) SARS-CoV-2 RNA (RT-PCR) NEGATIVE (Negative) Independent Interpretation I performed an independent interpretation of an: Plain X-Ray Radiology Impression Discussion of test interpretation with radiology: I have reviewed the radiologist's reading. Radiologist Impression: Mild compression deformity of T10, new compared with June 21, 2024. Recommend clinical correlation. Otherwise, no significant radiographic change. Diffuse bilateral coarse interstitial prominence with a peripheral and basilar predominance. Superimposed nodular densities in the left upper lobe. Critical Care Time Critical Care Time Critical Care Time: Yes Total Critical Care Time: 30 Attestation: I have personally provided critical care time. Time includes review of lab data, radiology results, discussion with consultants, and monitoring for potential decompensation. Intervention performed as documented. Discharge Plan Discharge Clinical Impression: Weakness, Cough Patient Disposition: Home, Self-Care Instructions: Chronic Cough (ED), Weakness (ED) Additional Instructions: Please follow-up with your primary care physician tomorrow. If you have any worsening or new symptoms, please return to the emergency room or call 911 Prescriptions: New guaifenesin 400 mg tablet 400 mg PO Q4H PRN (Reason: cough) Qty: 20 0RF No Action albuterol sulfate 2.5 mg /3 mL (0.083 %) solution for nebulization 2.5 mg inhalation QID 30 Days Qty: 360 12RF acetaminophen 500 mg Tablet 1,000 mg PO Q8H PRN (Reason: Headache) aspirin 81 mg Tablet,Delayed Release (Dr/Ec) 81 mg PO DAILY alendronate [Fosamax] 70 mg Tablet 70 mg PO SA lamotrigine 150 mg Tablet 300 mg PO BEDTIME lamotrigine 200 mg Tablet 200 mg PO DAILY montelukast 10 mg Tablet 10 mg PO BEDTIME albuterol sulfate [Proventil HFA] 90 mcg/actuation Hfa Aerosol Inhaler 2 puff INHALATION QID PRN (Reason: Respiratory Distress) cholecalciferol (vitamin D3) [Vitamin D3] 50 mcg (2,000 unit) Capsule 50 mcg PO DAILY mirtazapine 15 mg tablet 15 mg PO BEDTIME metoprolol succinate 50 mg Tablet Extended Release 24 Hr 50 mg PO DAILY betamethasone dipropionate 0.05 % cream 1 appl topical Q12H PRN (Reason: Dermititis ) cyclobenzaprine 5 mg tablet 5 mg PO Q8H PRN (Reason: Muscle Pain) calcium carbonate-vitamin D3 [Calcium 500 + D] 500 mg-5 mcg (200 unit) Tablet 1 tab PO BID meloxicam 15 mg tablet 15 mg PO DAILY tramadol 50 mg tablet 50 mg PO Q6H PRN (Reason: Pain) ibuprofen 600 mg tablet 600 mg PO Q8H PRN (Reason: Muscle Pain) lactulose 10 gram/15 mL solution 30 ml PO DAILY PRN (Reason: Constipation) fluocinolone acetonide oil [DermOtic Oil] 0.01 % Drops 4 drp OTIC (EARS) Q48H diclofenac sodium 1 % gel 1 g topical Q8H PRN (Reason: Pain) albuterol sulfate 2.5 mg /3 mL (0.083 %) solution for nebulization 2.5 mg inhalation Q6H PRN (Reason: Shortness Of Breath Or Wheezing) theophylline 200 mg tablet extended release 12 hr 200 mg PO BID benzonatate 100 mg capsule 100 mg PO Q8H PRN (Reason: Cough) docusate sodium 100 mg capsule 100 mg PO DAILY Mucus DM 30-600 mg Tablet Extended Release 12 Hr 1 tab PO BID Qty: 0 0RF cefuroxime axetil 500 mg tablet 500 mg PO BID Qty: 6 0RF dexamethasone 6 mg tablet 6 mg PO DAILY Qty: 5 0RF guaifenesin [Mucinex] 1,200 mg tablet extended release 12hr 1,200 mg PO BID Qty: 10 0RF pantoprazole 40 mg tablet,delayed release (DR/EC) 40 mg PO DAILY@0630 Serevent Diskus 50 mcg/dose blister with device 1 inh inhalation BID fluticasone furoate-vilanterol [Breo Ellipta] 200-25 mcg/dose blister with device 1 inh INHALATION DAILY sennosides [Senokot] 8.6 mg tablet 8.6 mg PO BEDTIME aripiprazole 15 mg tablet 10 mg PO DAILY Fish Oil 300-500 mg capsule 1 cap PO BID gabapentin 100 mg capsule 100 mg PO TID furosemide [Lasix] 20 mg tablet 20 mg PO DAILY 7 Days Qty: 7 0RF (DME) nebulizers Mis See Rx Instructions .Route Rx Instructions: As directed fluticasone propionate 50 mcg/actuation spray,suspension 1 spray intranasal DAILY vilazodone 40 mg tablet 40 mg PO DAILY (DME) Oxygen Home Use Kit See Rx Instructions .Route Rx Instructions: As directed Print Language: [place]
--- NOTE | 2024-08-05 16:47 | PC.NURSE ---
Confirmed w/ lab they are able to add on BNP, will run now.
[2024-08-05] MEDS: Azithromycin 500 MG TABLET PO (17:00)
[2024-08-05 17:22] LABS: B Type Natriuretic Peptide 103 pg/mL (<100)
[2024-08-05 17:58] VITALS: BP 157/71; PULSE 76; RESP 16; TEMP 36.4; O2SAT 96
== END 2024-08-05 18:00 | disposition home or self-care (01) ==
PROVIDERS: Physician Assistant Medical; Emergency Provider Emergency Medicine; PCP Student in an Organized Health Care Education/Training Program
DX: U07.1 COVID-19 (principal); R53.1 Weakness; J44.1 Chronic obstructive pulmonary disease with (acute) exacerbation; R05.9 Cough, unspecified; R06.02 Shortness of breath; R94.31 Abnormal electrocardiogram [ECG] [EKG]; Z87.891 Personal history of nicotine dependence; Z79.899 Other long term (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 therapy
CPT/HCPCS: 0241U; 36415; 71046; 80053; 81001; 82803; 83735; 83880; 84484; 85007; 85025; 85027; 93005; 94640; 96374; 99284; 99285; J2919

== ENCOUNTER 2024-08-06 14:14 | Outpatient (AMB) | payer MEDICARE, MEDICAID, SELFPAY ==
--- NOTE | 2024-08-05 21:37 | MHC.OFFVIS ---
Vital Signs 08/06/24 14:28 Height 5 ft 1 in Weight 200 lb 9.93 oz BMI 37.9 BP 130/72 Blood Pressure Location Rt brachial Position Sitting Pulse 66 Pulse Source Pulse Oximeter Pulse Oximetry (%) 94 Oxygen Delivery Method Nasal Cannula Oxygen Flow Rate 3 Intake Visit Reasons: COPD Allergies codeine [Codeine] Allergy (Intermediate, Verified 08/06/24 14:32) RESTLESS/RASH haloperidol [Haldol] Allergy (Intermediate, Verified 08/06/24 14:32) Palpitations Sulfa (Sulfonamide Antibiotics) Allergy (Intermediate, Verified 08/06/24 14:32) HIVES HPI HPI COPD: Details: Lluvia Durant is a pleasant 69 year old female, former smoker, with underlying COPD and chronic respiratory failure requiring supplemental oxygen. She is moderately controlled on Breo, albuterol MDI/nebs, theophylline and singulair. She is under the care of Dr. Acharya and presents today for hospital follow up. She was admitted to [facility] [place] from 07/27-07/31 for acute on chronic hypoxic and hypercapnic respiratory failure secondary to recent COVID infection and pneumonia. She was treated with IV ceftriaxone and azithromycin as well as Decadron. She was discharged with Mucinex ,Cefuroxime and Decadron. She had minimal change in symptoms and staff at intermediate noticed patient was more fatigue with increased cough and went to ED on 08/05 for continued symptoms. CXR with CELINA densities noted on prior admission. Labs unremarkable and respiratory panel negative. She was given solumedrol, nebs,prednisone and azithromycin while in ED and discharged with mucinex. Patient was reportedly supposed to be discharged on prednisone and azithromcyin, however never received these prescriptions. She continues with productive cough with white sputum, chest congestion, difficulty expectorating, dyspnea and fatigue. She is not requiring increased oxygen demand, using 3L at rest. She denies fevers or chills. [facility] Medical History Rib fractures Pulmonary nodule Tubular adenoma of colon (~2006) Osteopenia (~2012) Bronchopneumonia Chest pain Chronic respiratory alkalosis ILD (interstitial lung disease) CO2 retention Acute on chronic respiratory failure with hypoxia and hypercapnia Bipolar depression Eczema Limb swelling Insomnia Bronchitis Vasomotor rhinitis COPD (chronic obstructive pulmonary disease) Chronic respiratory failure Fall Acute metabolic encephalopathy Acute and chronic respiratory failure with hypercapnia Surgical History History of carpal tunnel surgery (~2000) History of ventral hernia repair (~2003) History of left inguinal hernia repair (~1995) History of tracheostomy (~2016) History of cataract surgery (~2018) History of colonoscopy Family History Other Hypertension Social History Household Members: Other Household Members Other:: [employer] Net Housing: Other Housing Other:: intermediate Are you a primary home care manager rn to a significant other at home: No Do you presently have visiting nurse 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) Alcohol intake: unknown Patient Tobacco Use Status: Former Tobacco user Tobacco use type: Cigarette Years Smoked: 20+ years e-Cigarette/Vaping Use: Never Used Second Hand Smoke Exposure: No Advance Directives Date on File: 11/30/21 service: No Current occupational status: disabled Review of Systems Const Denies chills, Denies excessive sweating, Denies fever(s), Denies headache(s) and Denies night sweats Eyes Denies dry eyes, Denies irritation and Denies itchy eyes ENT Reports Normal hearing present, Denies headache(s), Denies nasal congestion, Denies nasal discharge, Denies post nasal drip and Denies sore throat Card Denies chest pain, Denies chest pain at rest, Denies chest pain with activity, Denies claudication, Denies leg edema, Denies orthopnea and Denies paroxysmal nocturnal dyspnea Resp Denies excessive phlegm production, Denies pain on inspiration, Denies pain with cough, Denies stridor and Denies wheezing Musc Denies myalgias Neuro Reports Normal hearing present and Denies headache(s) Endo Denies excessive sweating Gerson/Lymph Denies lymphadenopathy Aller/Immun Denies itchy eyes, Denies seasonal rhinorrhea and Denies wheezing Physical Exam Vital Signs: Last Vital Signs Pulse 66 08/06/24 14:28 BP 130/72 08/06/24 14:28 Pulse Ox 94 08/06/24 14:28 Oxygen Delivery Method Nasal Cannula 08/06/24 14:28 Oxygen Flow Rate 3 08/06/24 14:28 BMI result Body Mass Index 37.9 Const General: cooperative, comfortable, no acute distress, well developed and alert Nutritional Appearance: obese Orientation/consciousness: patient oriented x3 Limitations: wheelchair HEENT Head: Yes normal to inspection, Yes normocephalic and Yes atraumatic Ears: hearing grossly normal bilaterally and external ears normal Eyes General: appearance normal, both eyes and all related structures Eyelids: Yes eyelids normal Sclerae: sclerae normal EOM: EOMs intact bilaterally Neck Neck: Yes normal visual inspection and Yes no lymphadenopathy Lymphatic: no lymphadenopathy noted Chest Chest palpation & inspection: normal inspection of the chest Resp Effort & Inspection: normal respiratory effort, able to speak in complete sentences, no audible wheezes, no stridor, not tachypneic, no tripod positioning and no use of accessory muscles Auscultation: no crackles, rhonchi, wheezes and diminished lung sounds Cardio Jugular venous distension: no JVD Rate: regular rate Rhythm: regular rhythm Skin Other: warm, dry General skin exam: no rashes or lesions noted Neuro General: patient oriented x3 Cranial nerves: Yes Normal hearing present Cognition (Neuro): normal cognition Gait exam (Neuro): Normal gait present Extrem General: Yes no pedal edema Psych Appearance: grossly normal and well kempt Speech and movement: Normal speech and movement present and Clear speech present Affect: normal affect Attitude: cooperative Thought process: Normal thought process present Thought content: Normal thought content present Insight: Good insight present (Psych) Judgement: Good judgement present (Psych) Results Reviewed Results Reviewed: [address] [address] XRay Report Signed Patient: Lluvia Cartagena MR#: [id number] : 1955 Acct:[id number] Age/Sex: 69 / F ADM Date: 08/05/24 Loc: HO.ED Attending Dr: Ordering Physician: Megha Espinosa Date of Service: 08/05/24 Procedure(s): XR chest 2V Accession Number(s): [id number] cc: Megha Espinosa; Yann Manzanares MD~ EXAMINATION: XR CHEST CLINICAL INFORMATION: Weakness. COMPARISON: Chest CT dated July 27, 2024. Chest x-ray dated June 21, 2024. TECHNIQUE: 2 views of the chest were obtained. FINDINGS: There has been no gross significant radiographic change compared with June 21, 2024. Examination again demonstrates diffuse bilateral coarse interstitial prominence with a peripheral and basilar predominance. Superimposed nodular densities in the left upper lobe remain as well. No consolidation, effusion, or pneumothorax is seen. Suspect mild cardiomegaly. Mild atherosclerotic aorta. Mild degenerative changes of the spine. No significant radiographic change in mild compression deformity of T12. New mild compression deformity of T10. XR/XR chest 2V IMPRESSION: Mild compression deformity of T10, new compared with June 21, 2024. Recommend clinical correlation. Otherwise, no significant radiographic change. Diffuse bilateral coarse interstitial prominence with a peripheral and basilar predominance. Superimposed nodular densities in the left upper lobe. 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: Assessment & Plan Assessment & Plan (1) COPD (chronic obstructive pulmonary disease): Code(s): J44.9 - Chronic obstructive pulmonary disease, unspecified Category: Medical Qualifiers: COPD type: emphysema Emphysema type: centrilobular Qualified Code(s): J43.2 - Centrilobular emphysema (2) Chronic respiratory failure: Code(s): J96.10 - Chronic respiratory failure, unspecified whether with hypoxia or hypercapnia Category: Medical Qualifiers: Respiratory failure complication: hypoxia and hypercapnia Qualified Code(s): J96.11 - Chronic respiratory failure with hypoxia; J96.12 - Chronic respiratory failure with hypercapnia (3) Pulmonary nodule: Code(s): R91.1 - Solitary pulmonary nodule Category: Medical (4) Cough: Code(s): R05.9 - Cough, unspecified Category: Medical Plan Will treat bronchitic symptoms with azithromycin and prednisone. Advised patient to call if symptoms are not improving and if worsen to seek emergent care. Discussed importance of continuing mucinex and using acapella valve. Will schedule patient for close follow up and will have repeat CXR prior to next appointment. All questions were answered and patient is in agreement of plan. Orders: Orders XR chest 2V Today R05.9 - Cough, unspecified Medications: New prednisone see taper instructions; 40 mg Daily x3 days, 30 mg daily x3 days, 20 mg daily x3 days, 10 mg daily x3 days 10 mg PO DIRECTED 30 tabs 0RF azithromycin For 250 mg dose pack: take 500 mg today (day 1), then 250 mg for 4 days (days 2-5) PO 6 tabs 0RF Discontinued dexamethasone Discontinued Reason: Patient Completed Course 6 mg PO DAILY 5 tabs 0RF Coding Level of Care Code Est Pt Level 4 (73114) Diagnoses Centrilobular emphysema J43.2 COPD type: emphysema Emphysema type: centrilobular Chronic respiratory failure with hypoxia and hypercapnia J96.11; J96.12 Respiratory failure complication: hypoxia and hypercapnia Pulmonary nodule R91.1 Cough R05.9
[2024-08-06 14:28] VITALS: BP 130/72; PULSE 66; O2SAT 94; BMI 37.9
== END 2024-08-06 15:49 | disposition home or self-care (01) ==
PROVIDERS: PCP Family Medicine Geriatric Medicine; Visit Provider Nurse Practitioner Family
DX: J43.2 Centrilobular emphysema (principal); J96.11 Chronic respiratory failure with hypoxia; J96.12 Chronic respiratory failure with hypercapnia; R91.1 Solitary pulmonary nodule; R05.9 Cough, unspecified
CPT/HCPCS: 99214

== ENCOUNTER 2024-08-09 12:06 | Inpatient (IN) | payer MEDICARE, MEDICAID, SELFPAY ==
[2024-08-09] VITALS (9 sets, daily range): BP systolic 125–166; BP diastolic 62–80; PULSE 68–80; RESP 15–22; TEMP 36.2–37; O2SAT 91–96; BMI 41.5; BMI 37.6
--- NOTE | ~2024-08-09 | XR_ITS ---
EXAMINATION: XR CHEST CLINICAL INFORMATION: Shortness of breath COMPARISON: 08/05/2024 TECHNIQUE: Frontal view of the chest was obtained. FINDINGS: EKG leads overlie the chest. Coarse interstitial lung markings are consistent with underlying centrilobular emphysema. Pulmonary nodule is again seen in the left upper lobe. Blunting of the left lateral costophrenic sulcus corresponds to epicardial fat pad. There is associated pleural parenchymal scarring at the left lung base which appears unchanged. Cardiac and mediastinal contours are normal. Vascular calcifications in the thoracic aorta. Degenerative spondylosis in the thoracic spine. Osteoarthritis is present in the acromioclavicular and glenohumeral joints. XR/XR chest 1V IMPRESSION: 1. No acute pulmonary findings. 2. Centrilobular emphysema. 3. Left upper lobe pulmonary nodule, unchanged. Electronically signed by: Bipin Griggs MD 08/09/2024 03:02 PM EDT
--- NOTE | 2024-08-09 12:42 | ECG_ITS ---
Test Reason : SOB Blood Pressure : / mmHG Vent. Rate : 070 BPM Atrial Rate : 070 BPM P-R Int : 128 ms QRS Dur : 086 ms QT Int : 374 ms P-R-T Axes : 052 057 039 degrees QTc Int : 403 ms Normal sinus rhythm Possible Left atrial enlargement Borderline ECG When compared with ECG of 05-AUG-2024 14:12, Criteria for Septal infarct are no longer Present Referred By: Sarah Nieves Electronically Signed By:SHANE NOVA
--- NOTE | 2024-08-09 12:51 | ED.SOB ---
HPI - SOB/Dyspnea General Chief Complaint: Dyspnea Stated Complaint: SOB X5D,+HOME O2,SEEN 5D AGO,FROM [facility] HOME Time Seen by Provider: 08/09/24 12:42 Source: patient, EMS, RN notes reviewed and old records reviewed Mode of arrival: EMS Limitations: no limitations History of Present Illness ED Provider: Russell Nieves PA-C HPI Narrative: 69-year-old female with history of severe COPD with chronic hypoxic and hypercapnic respiratory failure on 3 L nasal cannula at rest, 6 L nasal cannula with exertion, q.h.s. trilogy, former smoker (quit 5 years ago), hx tracheostomy 2/2 hypercarbic resp failure s/p decannulation, pulmonary nodules in the left lung (monitored at [facility]) who presents to the ER from her alf for evaluation of worsening FERNANDEZ and chest congestion for the last couple of days. She was seen here on 08/05 and discharged with guaifenesin. She saw her Blacksmith Supervisor on 08/05 as well who prescribed her a z-charmaine and prednisone taper w/ recommendations to continue mucinex and acapella valve. She states last night she was using her trilogy when she woke up gasping for breath and her oxygen saturation was 74%. She was afraid to go back to sleep after this. She states she has congestion and mucus in her chest that she is unable to get up. She reports when she exerts herself minimally she is extremely short of breath. She denies any known sick contacts, fever, chills. She reports diffuse in her chest pain from coughing hard. MD elicited complaint: shortness of breath Pertinent past history: COPD Onset (ago): day(s) Context: recent illness Timing: progressively worsening Severity: moderate Exacerbating factors: exertion Relieving factors: oxygen, bronchodilators and upright position Known history of: COPD Associated symptoms: chest congestion Treatment prior to arrival: oxygen and bronchodilator Related Data Home oxygen amount: 3 liters Home Medications ?Medication ?Instructions ?Recorded ?Confirmed acetaminophen 500 mg tablet 1,000 mg PO Q8H PRN Headache 02/09/21 07/27/24 albuterol sulfate 90 mcg/actuation 2 puff inhalation QID PRN 02/09/21 07/27/24 aerosol inhaler (Proventil HFA) Respiratory Distress alendronate 70 mg tablet (Fosamax) 70 mg PO SA 02/09/21 07/27/24 aspirin 81 mg tablet,delayed 81 mg PO DAILY 02/09/21 07/27/24 release cholecalciferol (vitamin D3) 50 50 mcg PO DAILY 02/09/21 07/27/24 mcg (2,000 unit) capsule (Vitamin D3) lamotrigine 150 mg tablet 300 mg PO BEDTIME 02/09/21 07/27/24 lamotrigine 200 mg tablet 200 mg PO DAILY 02/09/21 07/27/24 montelukast 10 mg tablet 10 mg PO BEDTIME 02/09/21 07/27/24 mirtazapine 15 mg tablet 15 mg PO BEDTIME 09/10/21 07/27/24 sennosides 8.6 mg tablet (Senokot) 8.6 mg PO BEDTIME 09/10/21 07/27/24 metoprolol succinate 50 mg 50 mg PO DAILY 11/18/21 07/27/24 tablet,extended release 24 hr aripiprazole 15 mg tablet 10 mg PO DAILY 11/02/22 07/27/24 omega-3 fatty acids-fish oil 300 1 cap PO BID 11/02/22 07/27/24 mg-500 mg capsule (Fish Oil) Oxygen Home Use 04/15/23 05/17/24 fluticasone propionate 50 1 spray intranasal DAILY Allergies 04/15/23 07/27/24 mcg/actuation nasal spray,suspension nebulizers 04/15/23 05/17/24 vilazodone 40 mg tablet 40 mg PO DAILY 04/15/23 07/27/24 gabapentin 100 mg capsule 100 mg PO TID 09/20/23 07/27/24 fluticasone furoate 200 1 inh inhalation DAILY SOB 06/21/24 07/27/24 mcg-vilanterol 25 mcg/dose inhalation powder (Breo Ellipta) pantoprazole 40 mg tablet,delayed 40 mg PO DAILY@0630 06/21/24 07/27/24 release salmeterol 50 mcg/dose blister 1 inh inhalation BID SOB 06/21/24 07/27/24 powder for inhalation (Serevent Diskus) albuterol sulfate 2.5 mg/3 mL 2.5 mg inhalation Q6H PRN 07/27/24 07/27/24 (0.083 %) solution for nebulization Shortness Of Breath Or Wheezing benzonatate 100 mg capsule 100 mg PO Q8H PRN Cough 07/27/24 07/27/24 betamethasone dipropionate 0.05 % 1 appl topical Q12H PRN Dermititis 07/27/24 07/27/24 topical cream calcium carbonate 500 mg-vitamin 1 tab PO BID 07/27/24 07/27/24 D3 5 mcg (200 unit) tablet (Calcium 500 + D) cyclobenzaprine 5 mg tablet 5 mg PO Q8H PRN Muscle Pain 07/27/24 07/27/24 diclofenac sodium 1 % topical gel 1 g topical Q8H PRN Pain 07/27/24 07/27/24 docusate sodium 100 mg capsule 100 mg PO DAILY Constipation 07/27/24 07/27/24 fluocinolone acetonide oil 0.01 % 4 drp otic (ears) Q48H 07/27/24 07/27/24 ear drops (DermOtic Oil) ibuprofen 600 mg tablet 600 mg PO Q8H PRN Muscle Pain 07/27/24 07/27/24 lactulose 10 gram/15 mL oral 30 ml PO DAILY PRN Constipation 07/27/24 07/27/24 solution meloxicam 15 mg tablet 15 mg PO DAILY 07/27/24 07/27/24 theophylline 200 mg 200 mg PO BID 07/27/24 07/27/24 tablet,extended release,12 hr tramadol 50 mg tablet 50 mg PO Q6H PRN Pain 07/27/24 07/27/24 Previous Rx's ?Medication ?Instructions ?Recorded furosemide 20 mg tablet (Lasix) 20 mg PO DAILY 7 days #7 tabs 07/06/24 albuterol sulfate 2.5 mg/3 mL 2.5 mg (3 mL) inhalation QID 30 07/09/24 (0.083 %) solution for nebulization days #360 mL cefuroxime axetil 500 mg tablet 500 mg PO BID #6 tabs 07/31/24 dextromethorphan-guaifenesin 30 1 tab PO BID #0 tabs 07/31/24 mg-600 mg tablet extended [id number] hr (Mucus DM) guaifenesin 1,200 mg tablet, 1,200 mg PO BID #10 tabs 08/01/24 extended release 12 hr (Mucinex) guaifenesin 400 mg tablet 400 mg PO Q4H PRN cough #20 tabs 08/05/24 azithromycin 250 mg tablet See Rx Instructions PO .COMPLEX #6 08/06/24 tabs prednisone 10 mg tablet 10 mg PO DIRECTED #30 tabs 08/06/24 Allergies Allergy/AdvReac Type Severity Reaction Status Date / Time codeine [Codeine] Allergy Intermediate RESTLESS/RA Verified 08/09/24 13:01 SH haloperidol [Haldol] Allergy Intermediate Palpitation Verified 08/09/24 13:01 s Sulfa (Sulfonamide Allergy Intermediate HIVES Verified 08/09/24 13:01 Antibiotics) Review of Systems Review of Systems: Yes all other systems are reviewed and are negative [facility] Past Medical History Medical History Rib fractures Pulmonary nodule Tubular adenoma of colon (~2006) Osteopenia (~2012) Bronchopneumonia Chest pain Chronic respiratory alkalosis ILD (interstitial lung disease) CO2 retention Acute on chronic respiratory failure with hypoxia and hypercapnia Bipolar depression Eczema Limb swelling Insomnia Bronchitis Vasomotor rhinitis COPD (chronic obstructive pulmonary disease) Chronic respiratory failure Fall Acute metabolic encephalopathy Acute and chronic respiratory failure with hypercapnia Surgical History History of carpal tunnel surgery (~2000) History of ventral hernia repair (~2003) History of left inguinal hernia repair (~1995) History of tracheostomy (~2016) History of cataract surgery (~2018) History of colonoscopy Family History Family History Other Hypertension Social History Social History Household Members: Other Household Members Other:: Assisted Service Net Housing: Other Housing Other:: alf Are you a primary resident care associate to a significant other at home: No Do you presently have visiting nurse 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) Alcohol intake: unknown Patient Tobacco Use Status: Former Tobacco user Tobacco use type: Cigarette Years Smoked: 20+ years Smoked in Last 30 Days: No e-Cigarette/Vaping Use: Never Used Second Hand Smoke Exposure: No Use of substances other than those prescribed or required for medical reasons: No Advance Directives: Yes Advance Directives on File: Yes Advance Directives Date on File: 11/30/21 Do you have a plan to hurt others: No Plan service: No Current occupational status: disabled Physical Exam Vital Signs: Vital Signs: Last Vital Signs Temp 98.6 F 08/09/24 12:53 Pulse 72 08/09/24 16:14 Resp 17 08/09/24 16:14 BP 153/76 H 08/09/24 16:14 Pulse Ox 91 L 08/09/24 16:14 O2 Del Method Nasal Cannula 08/09/24 16:14 O2 Flow Rate 3 08/09/24 16:14 Oxygen Flow Rate 3 08/09/24 12:53 BMI result Body Mass Index 41.5 Appearance: Alert. Oriented X3. Mild dyspnea when speaking Head: normocephalic, atraumatic. Eyes: Pupils equal, round and reactive to light. ENT: Pharynx normal. No tonsillar swelling or exudate. Neck: Normal inspection. Neck supple. CVS: Normal heart rate and rhythm. Pulses normal. Respiratory: Mild respiratory distress, with dyspnea on speaking, able to speak in 4-5 word sentences. Breath sounds diminished throughout with poor air entry, no inspiratory or expiratory wheezes, rhonchi. Abdomen: Soft and nontender. +BS x4 Skin: Skin warm and dry. Normal skin color. Normal skin turgor. No rashes. Extremities: No lower extremity edema. No joint swelling. Neuro/psych: Oriented X 3. No motor deficit. No sensory deficit. CN II-XII intact. Normal speech and cognition. Medications Administered Discontinued Medications Generic Name Dose Route Start Last Admin Trade Name Ziaq PRN Reason Stop Dose Admin Albuterol/Ipratropium 3 ml 08/09/24 14:17 08/09/24 14:20 Albuterol/Iprat 2.5/0.5mg 3 Ml Ampul.Neb INHALE 08/09/24 14:18 3 ml ONCE ONE Administration Doxycycline Hyclate 100 mg/ 250 mls @ 166.67 mls/hr 08/09/24 14:26 08/09/24 15:00 Sodium Chloride IV 08/09/24 15:55 166.67 mls/hr ONCE ONE Administration Methylprednisolone Sodium Succinate 40 mg 08/09/24 13:57 08/09/24 14:07 Methylprednisolone Sod Succ 40 Mg/Ml Vial IVPUSH 08/09/24 13:58 40 mg ONCE ONE Administration Medical Decision Making Medical Decision Making [facility] Narrative: 69-year-old female with history of severe COPD with chronic hypoxic and hypercapnic respiratory failure on 3 L nasal cannula at rest, 6 L nasal cannula with exertion, q.h.s. trilogy, former smoker (quit 5 years ago), hx tracheostomy 2/2 hypercarbic resp failure s/p decannulation, pulmonary nodules in the left lung (monitored at [facility]) who presents to the ER from her alf for evaluation of worsening FERNANDEZ and chest congestion for the last couple of days. Had COVID 6 weeks ago and tested negative the other day. She denies any known sick contacts. Denies fevers. She reports episode of hypoxia last night into the 70s with her usual 3 L and her trilogy. Patient arrives to the ER saturating 90% on her baseline 3 L. She had diminished lung sounds initially after her breathing treatment from EMS. Chest x-ray looks largely unchanged from prior. Lab workup showing no leukocytosis. Procalcitonin low, low clinical suspicion for bacterial pneumonia. IV doxycycline given for COPD exacerbation. Patient found to have slightly elevated BNP compared to prior. Will diurese gently. Patient tested positive for COVID. All other viral studies are negative at this time. Upon reassessment patient found to have expiratory wheezes throughout. E.d. bronch protocol ordered and respiratory came to the bedside to give a nebulizer treatment. Will plan to keep the patient for treatment for COPD exacerbation due to COVID-19, patient agrees with plan. Differential Diagnosis Differential Diagnoses: The differential diagnosis associated with the presentation includes Acute on chronic hypoxic and hypercarbic respiratory failure due to COPD exacerbation, end-stage COPD, PE, pneumonia, bronchitis, viral respiratory infection Admission/Observation Consideration of admission/observation: Escalation of care including admission/observation considered Consult Healthcare Provider Management of the patient was discussed with: Hospitalist Dr. Griffin Lab Data [facility] Lab Attestation statement: I reviewed the patient's lab results. Stable anemia, chronically elevated bicarb 08/09/24 13:47 08/09/24 13:47 Labs: Lab Results 08/09/24 08/09/24 08/09/24 Range/Units 13:47 14:00 15:54 WBC 9.1 (4.8-10.8) X10*3/uL RBC 3.68 L (4.20-5.50) X10*6/uL Hgb 10.8 L (12.0-16.0) g/dl Hct 35.8 L (37.0-47.0) % MCV 97.3 (80.0-98.0) fL MCH 29.3 (27.0-33.0) pg MCHC 30.2 L (31.0-35.0) g/dl RDW 15.0 (11.0-16.0) % Plt Count 398 (160-400) X10*3/uL MPV 9.1 L (9.4-12.3) fL Immature Gran % (Auto) 3.0 H (0.0-0.4) % Neut % (Auto) 91.4 H (45-73) % Lymph % (Auto) 3.3 L (20-40) % [place] % (Auto) 1.8 L (2-11) % Eos % (Auto) 0.0 (0-4) % Baso % (Auto) 0.5 (0-2) % Lymph # (Auto) 0.3 L (1.2-4.9) X10*3/uL [place] # (Auto) 0.2 (0.1-1.2) X10*3/uL Eos # (Auto) 0.0 (0.0-0.4) X10*3/uL Baso # (Auto) 0.1 (0.0-0.2) X10*3/uL Abs Immat Gran (auto) 0.27 H (0.00-0.03) X10*3/uL Absolute Neuts (auto) 8.3 (2.0-8.3) x10*3/uL Absolute Nucleated RBC 0.000 (0.0-0.012) X10*3/uL Nucleated RBC % (auto) 0.0 (0.0-0.2) /100WBC Smear Tech's Comments VERIFIED VBG pH 7.42 (7.32-7.43) VBG pCO2 90 mmHg VBG pO2 100 mmHg VBG HCO3 58 H (22-26) mmol/L VBG O2 Saturation 100.0 % VBG Base Excess 28.1 mmol/L Sodium 141 (135-145) mmol/L Potassium 4.7 (3.3-5.1) mmol/L Chloride 88 L (96-108) mmol/L Carbon Dioxide 44 H* (22-29) mmol/L Anion Gap 14 (12-20) BUN 15 (9-16) mg/dL Creatinine 0.83 (0.5-1.4) mg/dL Estim Creat Clear Calc 68.3 Estimated GFR > 60 Random Glucose 145 H (60-115) mg/dL Lactic Acid 2.4 H* (0.5-2.0) mmol/L Lactic Acid F/U @ 2Hr (0.5-2.0) mmol/L Calcium 9.4 (8.4-10.2) mg/dL Magnesium 1.9 (1.6-2.6) mg/dL Total Bilirubin 0.2 (0.0-1.0) mg/dL Direct Bilirubin < 0.2 (0.0-0.5) mg/dL AST 22 (5-31) U/L ALT 24 (0-31) U/L Alkaline Phosphatase 74 (39-117) U/L Troponin I High Sens 5.5 D (<3.5-17.0) ng/L B-Natriuretic Peptide 284 H (<100) pg/mL Total Protein 6.7 (6.5-8.0) g/dL Albumin 4.0 (3.5-5.0) g/dL Procalcitonin 0.03 ng/mL Urine Color Yellow Urine Appearance Clear Urine pH 8.5 (5.0-9.0) Ur Specific [place] 1.010 (1.005-1.025) Urine Protein Trace (Neg-Trace) mg/dL Urine Glucose (UA) Negative (Negative) mg/dL Urine Ketones Negative (Negative) mg/dL Urine Blood Trace H (Negative) Urine Nitrite Negative (Negative) Ur Leukocyte Esterase Negative (Negative) Urine RBC 3-5 H (0-2) /HPF Urine WBC 0-5 (0-5) /HPF Ur Squamous Epith Cells 0-2 (0-2) /HPF Urine Bacteria None Seen (None Seen) Hyaline Casts 0-2 (0-2) /LPF Respiratory Panel [place] See Note Adenovirus (Rapid PCR) Not Detected (Not Detect.) B.pert (TEM-PCR) Not Detected (Not Detect.) B.parapertussis DNA PCR Not Detected (Not Detect.) C. pneumoniae DNA (PCR) Not Detected (Not Detect.) Coronavirus OC43 (PCR) Not Detected (Not Detect.) Coronavirus HKU1 (PCR) Not Detected (Not Detect.) Coronavirus 229E (PCR) Not Detected (Not Detect.) Coronavirus NL63 (PCR) Not Detected (Not Detect.) Human Metapneumovir PCR Not Detected (Not Detect.) Influenza A (RT-PCR) Not Detected (Not Detect.) Influenza B (RT-PCR) Not Detected (Not Detect.) M. pneumoniae (PCR) Not Detected (Not Detect.) Parainfluenza 1 (PCR) Not Detected (Not Detect.) Parainfluenza 2 (PCR) Not Detected (Not Detect.) Parainfluenza 3 (PCR) Not Detected (Not Detect.) Parainfluenza 4 (PCR) Not Detected (Not Detect.) RSV (PCR) Not Detected (Not Detect.) Entero/Rhino (PCR) Not Detected (Not Detect.) SARS-CoV-2 RNA (RT-PCR) Detected A (Not Detect.) 08/09/24 Range/Units 16:20 WBC (4.8-10.8) X10*3/uL RBC (4.20-5.50) X10*6/uL Hgb (12.0-16.0) g/dl Hct (37.0-47.0) % MCV (80.0-98.0) fL MCH (27.0-33.0) pg MCHC (31.0-35.0) g/dl RDW (11.0-16.0) % Plt Count (160-400) X10*3/uL MPV (9.4-12.3) fL Immature Gran % (Auto) (0.0-0.4) % Neut % (Auto) (45-73) % Lymph % (Auto) (20-40) % [place] % (Auto) (2-11) % Eos % (Auto) (0-4) % Baso % (Auto) (0-2) % Lymph # (Auto) (1.2-4.9) X10*3/uL [place] # (Auto) (0.1-1.2) X10*3/uL Eos # (Auto) (0.0-0.4) X10*3/uL Baso # (Auto) (0.0-0.2) X10*3/uL Abs Immat Gran (auto) (0.00-0.03) X10*3/uL Absolute Neuts (auto) (2.0-8.3) x10*3/uL Absolute Nucleated RBC (0.0-0.012) X10*3/uL Nucleated RBC % (auto) (0.0-0.2) /100WBC Smear Tech's Comments VBG pH (7.32-7.43) VBG pCO2 mmHg VBG pO2 mmHg VBG HCO3 (22-26) mmol/L VBG O2 Saturation % VBG Base Excess mmol/L Sodium (135-145) mmol/L Potassium (3.3-5.1) mmol/L Chloride (96-108) mmol/L Carbon Dioxide (22-29) mmol/L Anion Gap (12-20) BUN (9-16) mg/dL Creatinine (0.5-1.4) mg/dL Estim Creat Clear Calc Estimated GFR Random Glucose (60-115) mg/dL Lactic Acid (0.5-2.0) mmol/L Lactic Acid F/U @ 2Hr 1.9 (0.5-2.0) mmol/L Calcium (8.4-10.2) mg/dL Magnesium (1.6-2.6) mg/dL Total Bilirubin (0.0-1.0) mg/dL Direct Bilirubin (0.0-0.5) mg/dL AST (5-31) U/L ALT (0-31) U/L Alkaline Phosphatase (39-117) U/L Troponin I High Sens (<3.5-17.0) ng/L B-Natriuretic Peptide (<100) pg/mL Total Protein (6.5-8.0) g/dL Albumin (3.5-5.0) g/dL Procalcitonin ng/mL Urine Color Urine Appearance Urine pH (5.0-9.0) Ur Specific [place] (1.005-1.025) Urine Protein (Neg-Trace) mg/dL Urine Glucose (UA) (Negative) mg/dL Urine Ketones (Negative) mg/dL Urine Blood (Negative) Urine Nitrite (Negative) Ur Leukocyte Esterase (Negative) Urine RBC (0-2) /HPF Urine WBC (0-5) /HPF Ur Squamous Epith Cells (0-2) /HPF Urine Bacteria (None Seen) Hyaline Casts (0-2) /LPF Respiratory Panel [place] Adenovirus (Rapid PCR) (Not Detect.) B.pert (TEM-PCR) (Not Detect.) B.parapertussis DNA PCR (Not Detect.) C. pneumoniae DNA (PCR) (Not Detect.) Coronavirus OC43 (PCR) (Not Detect.) Coronavirus HKU1 (PCR) (Not Detect.) Coronavirus 229E (PCR) (Not Detect.) Coronavirus NL63 (PCR) (Not Detect.) Human Metapneumovir PCR (Not Detect.) Influenza A (RT-PCR) (Not Detect.) Influenza B (RT-PCR) (Not Detect.) M. pneumoniae (PCR) (Not Detect.) Parainfluenza 1 (PCR) (Not Detect.) Parainfluenza 2 (PCR) (Not Detect.) Parainfluenza 3 (PCR) (Not Detect.) Parainfluenza 4 (PCR) (Not Detect.) RSV (PCR) (Not Detect.) Entero/Rhino (PCR) (Not Detect.) SARS-CoV-2 RNA (RT-PCR) (Not Detect.) ABG Data Attestation ABG: I personally reviewed and interpreted this ABG as follows: Interpretation: Compensated, chronic respiratory acidosis Independent Interpretation I performed an independent interpretation of an: EKG and Plain X-Ray Interpretation: Chest x-ray without any new focal findings, increased interstitial markings that is largely unchanged from prior, left upper lobe changes are not changed from prior Normal sinus rhythm with ventricular rate 70 beats per minute, normal WA interval, normal QTC, no ST segment elevations or depressions. Radiology Impression Discussion of test interpretation with radiology: I have reviewed the radiologist's reading. Radiologist Impression: XR/XR chest 1V IMPRESSION: 1. No acute pulmonary findings. 2. Centrilobular emphysema. 3. Left upper lobe pulmonary nodule, unchanged. Independent Historian Clinical information obtained from an independent historian. History obtained from or confirmed by: EMS External Record Review External record reviewed: Inpatient record, Outpatient record, Prior outpatient labs and Prior outpatient radiology Tests considered The following testing was considered but not selected: CTA considered, low clinical suspicion for PE Prescription Management I considered prescription management with: Antibiotic and Other (Bronchodilator and steroids) Chronic Conditions Patient?s care impacted by: Other (Severe COPD) Critical Care Time Critical Care Time Critical Care Time: Yes Total Critical Care Time: 36 Attestation: I have personally provided critical care time exclusive of time spent on separately billable procedures. Time includes review of lab data, radiology results, discussion with consultants, and monitoring for potential decompensation. Intervention performed as documented. Discharge Plan Discharge Clinical Impression: COPD exacerbation, COVID-19 Patient Disposition: Admitted As Inpatient Print Language: Azeri
[2024-08-09 14:04] LABS: VBG Base Excess 28.1 mmol/L; VBG HCO3 58 mmol/L (22-26); VBG pCO2 90 mmHg; VBG pH 7.42 (7.32-7.43); VBG pO2 100 mmHg
[2024-08-09 14:05] LABS: Venous Blood Gas Refer to POC result
[2024-08-09 14:07] LABS: Basophils Absolute Auto 0.1 X10*3/uL (0.0-0.2); Basophils Percent Auto 0.5 % (0-2); Hematocrit 35.8 % (37.0-47.0); Hemoglobin 10.8 g/dl (12.0-16.0); Imm Gran Abs Auto 0.27 X10*3/uL (0.00-0.03); Lymphocytes Absolute Auto 0.3 X10*3/uL (1.2-4.9); Lymphocytes Percent Auto 3.3 % (20-40); MANUAL DIFF FLAG SCAN; Mean Corpuscular HGB Conc 30.2 g/dl (31.0-35.0); Mean Corpuscular Hemoglobin 29.3 pg (27.0-33.0); Mean Corpuscular Volume 97.3 fL (80.0-98.0); Mean Platelet Volume 9.1 fL (9.4-12.3); Monocytes Absolute Auto 0.2 X10*3/uL (0.1-1.2); Monocytes Percent Auto 1.8 % (2-11); Neutrophils Absolute Auto 8.3 x10*3/uL (2.0-8.3); Neutrophils Percent Auto 91.4 % (45-73); Platelet Count 398 X10*3/uL (160-400); Red Blood Count 3.68 X10*6/uL (4.20-5.50); SCAN SMEAR FLAG 1; White Blood Count 9.1 X10*3/uL (4.8-10.8)
[2024-08-09] MEDS: methylPREDNISolone Sod Succ 40 MG/ML VIAL IVPUSH (14:07)
[2024-08-09 14:20] LABS: Lactic Acid 2.4 mmol/L (0.5-2.0)
[2024-08-09] MEDS: Albuterol/Iprat 2.5/0.5MG 3 ML AMPUL.NEB INHALE (14:20)
[2024-08-09 14:25] LABS: B Type Natriuretic Peptide 284 pg/mL (<100); Troponin-I High Sensitivity 5.5 ng/L (<3.5-17.0)
[2024-08-09 14:27] LABS: SLIDE REVIEW VERIFIED
[2024-08-09 14:28] LABS: Alanine Aminotransferase 24 U/L (0-31); Alkaline Phosphatase 74 U/L (39-117); Aspartate Amino Transferase 22 U/L (5-31); Bilirubin Direct < 0.2 mg/dL (0.0-0.5); Bilirubin Total 0.2 mg/dL (0.0-1.0); Blood Urea Nitrogen 15 mg/dL (9-16); Calcium 9.4 mg/dL (8.4-10.2); Carbon Dioxide 44 mmol/L (22-29); Chloride 88 mmol/L (96-108); Creatinine Clr Calc Pharmacy 68.3; Estimated Glomerular Filt Rate > 60; Glucose Random 145 mg/dL (60-115); Magnesium 1.9 mg/dL (1.6-2.6); Potassium 4.7 mmol/L (3.3-5.1); Sodium 141 mmol/L (135-145); Total Protein 6.7 g/dL (6.5-8.0)
[2024-08-09 14:40] LABS: Anion Gap 14 (12-20)
[2024-08-09 14:52] LABS: Procalcitonin 0.03 ng/mL
[2024-08-09] MEDS: Doxycycline Hyclate 100 MG in 0.9 % Sodium Chloride 250 ML 166.67 MG IV (15:00)
[2024-08-09 15:50] LABS: Adenovirus PCR Not Detected (Not Detect.); Bordetella parapertussis PCR Not Detected (Not Detect.); Bordetella pertussis PCR Not Detected (Not Detect.); Chlamydia pneumoniae PCR Not Detected (Not Detect.); Coronavirus 229E PCR Not Detected (Not Detect.); Coronavirus HKU1 PCR Not Detected (Not Detect.); Coronavirus NL63 PCR Not Detected (Not Detect.); Coronavirus OC43 PCR Not Detected (Not Detect.); Human metapneumovirus PCR Not Detected (Not Detect.); Influenza A PCR Not Detected (Not Detect.); Influenza B PCR Not Detected (Not Detect.); Mycoplasma pneumoniae PCR Not Detected (Not Detect.); Parainfluenza 1 PCR Not Detected (Not Detect.); Parainfluenza 2 PCR Not Detected (Not Detect.); Parainfluenza 3 PCR Not Detected (Not Detect.); Parainfluenza 4 PCR Not Detected (Not Detect.); RSV PCR Not Detected (Not Detect.); Rhino/Enterovirus PCR Not Detected (Not Detect.); SARS-CoV-2 PCR Detected (Not Detect.)
[2024-08-09 15:59] LABS: Appearance Urine Clear; Color Urine Yellow; Glucose Urine UA Negative (Negative); Leukocyte Esterase Urine Negative (Negative); Nitrite Urine Negative (Negative); PH 8.5 (5.0-9.0); UMIC TRIGGER UACC YES; Urine Blood Trace (Negative); Urine Ketones Negative (Negative); Urine Protein Trace mg/dL (Neg-Trace)
[2024-08-09 16:03] LABS: Reflex Lactate? Lactic Acid Added
[2024-08-09 16:04] LABS: Bacteria Urine None Seen (None Seen); Hyaline Casts Urine 0-2 /LPF (0-2); Squamous Epithelial Cell Urine 0-2 /HPF (0-2); WBC Urine 0-5 /HPF (0-5)
[2024-08-09 16:34] LABS: ~Lactic Acid-LAB USE ONLY 1.9 mmol/L (0.5-2.0)
--- NOTE | 2024-08-09 17:06 | PM.IMHP ---
History of Present Illness Date of Service: 08/09/24 Chief Complaint: sob 69F PMH chronic hypoxic and hypercapnic respiratory failure due to COPD on 3 L at rest and 6 L on activity, hypertension, osteoporosis, mood disorder presented with cough and shortness of breath. Patient was recently [place] [facility] [place] for hospitalization for COPD exacerbation due to COVID and pneumonia. Was discharged back to [place] [facility] on cefuroxime and Decadron. Patient reports increasing sob since discharge, with non productive cough. no fevers, no chills. in ED abg with normal ph, co2 elevated to 90 (basweline 70), bicarb 44, covid pcr positive. Review of Systems Review of Systems: Yes all other systems are reviewed and are negative [facility] Medical History Rib fractures Pulmonary nodule Tubular adenoma of colon (~2006) Osteopenia (~2012) Bronchopneumonia Chest pain Chronic respiratory alkalosis ILD (interstitial lung disease) CO2 retention Acute on chronic respiratory failure with hypoxia and hypercapnia Bipolar depression Eczema Limb swelling Insomnia Bronchitis Vasomotor rhinitis COPD (chronic obstructive pulmonary disease) Chronic respiratory failure Fall Acute metabolic encephalopathy Acute and chronic respiratory failure with hypercapnia Family History Other Hypertension Surgical History History of carpal tunnel surgery (~2000) History of ventral hernia repair (~2003) History of left inguinal hernia repair (~1995) History of tracheostomy (~2016) History of cataract surgery (~2018) History of colonoscopy Social History Household Members: Other Household Members Other:: [employer] Housing: Other Housing Other:: [place] [facility] Are you a primary hiv/aids care nurse to a significant other at home: No Do you presently have visiting nurse 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) Alcohol intake: unknown Patient Tobacco Use Status: Former Tobacco user Tobacco use type: Cigarette Years Smoked: 20+ years Smoked in Last 30 Days: No e-Cigarette/Vaping Use: Never Used Second Hand Smoke Exposure: No Use of substances other than those prescribed or required for medical reasons: No Advance Directives: Yes Advance Directives on File: Yes Advance Directives Date on File: 11/30/21 Do you have a plan to hurt others: No Plan service: No Current occupational status: disabled Meds Allergies Allergy/AdvReac Type Severity Reaction Status Date / Time codeine [Codeine] Allergy Intermediate RESTLESS/RA Verified 08/09/24 13:01 SH haloperidol [Haldol] Allergy Intermediate Palpitation Verified 08/09/24 13:01 s Sulfa (Sulfonamide Allergy Intermediate HIVES Verified 08/09/24 13:01 Antibiotics) Active Medications: Current Medications Albuterol/Ipratropium (Albuterol/Iprat 2.5/0.5mg 3 Ml Ampul.Neb) 3 ml INHALE RQ4H WHILE AWAKE PRN PRN Reason: sob Methylprednisolone Sodium Succinate (Methylprednisolone Sod Succ 40 Mg/Ml Vial) 40 mg IVPUSH Q12H ALYSSA Home Medications ?Medication ?Instructions ?Recorded ?Confirmed ?Last Taken ?Type acetaminophen 500 mg tablet 1,000 mg PO Q8H PRN Headache 02/09/21 07/27/24 07/27/24 07:00 History albuterol sulfate 90 mcg/actuation 2 puff inhalation QID PRN 02/09/21 07/27/24 07/27/24 07:00 History aerosol inhaler (Proventil HFA) Respiratory Distress alendronate 70 mg tablet (Fosamax) 70 mg PO SA 02/09/21 07/27/24 07/21/24 History aspirin 81 mg tablet,delayed 81 mg PO DAILY 02/09/21 07/27/24 07/27/24 07:00 History release cholecalciferol (vitamin D3) 50 50 mcg PO DAILY 02/09/21 07/27/24 07/27/24 07:00 History mcg (2,000 unit) capsule (Vitamin D3) lamotrigine 150 mg tablet 300 mg PO BEDTIME 02/09/21 07/27/24 07/27/24 07:00 History lamotrigine 200 mg tablet 200 mg PO DAILY 02/09/21 07/27/24 07/27/24 07:00 History montelukast 10 mg tablet 10 mg PO BEDTIME 02/09/21 07/27/24 07/27/24 07:00 History mirtazapine 15 mg tablet 15 mg PO BEDTIME 09/10/21 07/27/24 07/27/24 07:00 History sennosides 8.6 mg tablet (Senokot) 8.6 mg PO BEDTIME 09/10/21 07/27/24 07/27/24 07:00 History metoprolol succinate 50 mg 50 mg PO DAILY 11/18/21 07/27/24 07/27/24 07:00 History tablet,extended release 24 hr aripiprazole 15 mg tablet 10 mg PO DAILY 11/02/22 07/27/24 07/27/24 07:00 History omega-3 fatty acids-fish oil 300 1 cap PO BID 11/02/22 07/27/24 07/27/24 07:00 History mg-500 mg capsule (Fish Oil) Oxygen Home Use 04/15/23 05/17/24 Unknown History fluticasone propionate 50 1 spray intranasal DAILY Allergies 04/15/23 07/27/24 07/27/24 07:00 History mcg/actuation nasal spray,suspension nebulizers 04/15/23 05/17/24 Unknown History vilazodone 40 mg tablet 40 mg PO DAILY 04/15/23 07/27/24 07/27/24 07:00 History gabapentin 100 mg capsule 100 mg PO TID 09/20/23 07/27/24 07/27/24 12:00 History fluticasone furoate 200 1 inh inhalation DAILY SOB 06/21/24 07/27/24 07/27/24 07:00 History mcg-vilanterol 25 mcg/dose inhalation powder (Breo Ellipta) pantoprazole 40 mg tablet,delayed 40 mg PO DAILY@0630 06/21/24 07/27/24 07/27/24 07:00 History release salmeterol 50 mcg/dose blister 1 inh inhalation BID SOB 06/21/24 07/27/24 07/27/24 07:00 History powder for inhalation (Serevent Diskus) albuterol sulfate 2.5 mg/3 mL 2.5 mg inhalation Q6H PRN 07/27/24 07/27/24 Unknown History (0.083 %) solution for nebulization Shortness Of Breath Or Wheezing benzonatate 100 mg capsule 100 mg PO Q8H PRN Cough 07/27/24 07/27/24 07/27/24 07:00 History betamethasone dipropionate 0.05 % 1 appl topical Q12H PRN Dermititis 07/27/24 07/27/24 07/27/24 07:00 History topical cream calcium carbonate 500 mg-vitamin 1 tab PO BID 07/27/24 07/27/24 07/27/24 07:00 History D3 5 mcg (200 unit) tablet (Calcium 500 + D) cyclobenzaprine 5 mg tablet 5 mg PO Q8H PRN Muscle Pain 07/27/24 07/27/24 07/27/24 07:00 History diclofenac sodium 1 % topical gel 1 g topical Q8H PRN Pain 07/27/24 07/27/24 07/27/24 07:00 History docusate sodium 100 mg capsule 100 mg PO DAILY Constipation 07/27/24 07/27/24 07/27/24 07:00 History fluocinolone acetonide oil 0.01 % 4 drp otic (ears) Q48H 07/27/24 07/27/24 Unknown History ear drops (DermOtic Oil) ibuprofen 600 mg tablet 600 mg PO Q8H PRN Muscle Pain 07/27/24 07/27/24 07/27/24 07:00 History lactulose 10 gram/15 mL oral 30 ml PO DAILY PRN Constipation 07/27/24 07/27/24 07/27/24 07:00 History solution meloxicam 15 mg tablet 15 mg PO DAILY 07/27/24 07/27/24 07/27/24 07:00 History theophylline 200 mg 200 mg PO BID 07/27/24 07/27/24 07/27/24 07:00 History tablet,extended release,12 hr tramadol 50 mg tablet 50 mg PO Q6H PRN Pain 07/27/24 07/27/24 07/27/24 07:00 History Physical Exam Vital Signs and Narrative: Vital Signs: Last Vital Signs Temp 98.6 F 08/09/24 12:53 Pulse 72 08/09/24 16:14 Resp 17 08/09/24 16:14 BP 153/76 H 08/09/24 16:14 Pulse Ox 91 L 08/09/24 16:14 O2 Del Method Nasal Cannula 08/09/24 16:14 O2 Flow Rate 3 08/09/24 16:14 Oxygen Flow Rate 3 08/09/24 12:53 BMI result Body Mass Index 41.5 General: AO X 3, no acute distress Resp: diminished bilateral, no accessory muscles used CVS: S1,S2,RRR GI: soft, non tender, non distended Neuro: motor grossly intact, alert Psych: appropriate affect, appropriate insight Results Labs 08/09/24 13:47 08/09/24 13:47 Labs: Laboratory Results - last 24 hr 08/09/24 08/09/24 08/09/24 13:47 14:00 15:54 MCV 97.3 MCH 29.3 MCHC 30.2 L RDW 15.0 Plt Count 398 MPV 9.1 L Immature Gran % (Auto) 3.0 H Neut % (Auto) 91.4 H Lymph % (Auto) 3.3 L [place] % (Auto) 1.8 L Eos % (Auto) 0.0 Baso % (Auto) 0.5 Lymph # (Auto) 0.3 L [place] # (Auto) 0.2 Eos # (Auto) 0.0 Baso # (Auto) 0.1 Abs Immat Gran (auto) 0.27 H Absolute Neuts (auto) 8.3 Absolute Nucleated RBC 0.000 Nucleated RBC % (auto) 0.0 Smear Tech's Comments VERIFIED VBG pH 7.42 VBG pCO2 90 VBG pO2 100 VBG HCO3 58 H VBG O2 Saturation 100.0 VBG Base Excess 28.1 Anion Gap 14 Estim Creat Clear Calc 68.3 Estimated GFR > 60 Random Glucose 145 H Lactic Acid 2.4 H* Lactic Acid F/U @ 2Hr Calcium 9.4 Magnesium 1.9 Total Bilirubin 0.2 Direct Bilirubin < 0.2 AST 22 ALT 24 Alkaline Phosphatase 74 Troponin I High Sens 5.5 D B-Natriuretic Peptide 284 H Total Protein 6.7 Albumin 4.0 Procalcitonin 0.03 Urine Color Yellow Urine Appearance Clear Urine pH 8.5 Ur Specific [place] 1.010 Urine Protein Trace Urine Glucose (UA) Negative Urine Ketones Negative Urine Blood Trace H Urine Nitrite Negative Ur Leukocyte Esterase Negative Urine RBC 3-5 H Urine WBC 0-5 Ur Squamous Epith Cells 0-2 Urine Bacteria None Seen Hyaline Casts 0-2 Respiratory Panel [place] See Note Adenovirus (Rapid PCR) Not Detected B.pert (TEM-PCR) Not Detected B.parapertussis DNA PCR Not Detected C. pneumoniae DNA (PCR) Not Detected Coronavirus OC43 (PCR) Not Detected Coronavirus HKU1 (PCR) Not Detected Coronavirus 229E (PCR) Not Detected Coronavirus NL63 (PCR) Not Detected Human Metapneumovir PCR Not Detected Influenza A (RT-PCR) Not Detected Influenza B (RT-PCR) Not Detected M. pneumoniae (PCR) Not Detected Parainfluenza 1 (PCR) Not Detected Parainfluenza 2 (PCR) Not Detected Parainfluenza 3 (PCR) Not Detected Parainfluenza 4 (PCR) Not Detected RSV (PCR) Not Detected Entero/Rhino (PCR) Not Detected SARS-CoV-2 RNA (RT-PCR) Detected A 08/09/24 16:20 MCV MCH MCHC RDW Plt Count MPV Immature Gran % (Auto) Neut % (Auto) Lymph % (Auto) [place] % (Auto) Eos % (Auto) Baso % (Auto) Lymph # (Auto) [place] # (Auto) Eos # (Auto) Baso # (Auto) Abs Immat Gran (auto) Absolute Neuts (auto) Absolute Nucleated RBC Nucleated RBC % (auto) Smear Tech's Comments VBG pH VBG pCO2 VBG pO2 VBG HCO3 VBG O2 Saturation VBG Base Excess Anion Gap Estim Creat Clear Calc Estimated GFR Random Glucose Lactic Acid Lactic Acid F/U @ 2Hr 1.9 Calcium Magnesium Total Bilirubin Direct Bilirubin AST ALT Alkaline Phosphatase Troponin I High Sens B-Natriuretic Peptide Total Protein Albumin Procalcitonin Urine Color Urine Appearance Urine pH Ur Specific [place] Urine Protein Urine Glucose (UA) Urine Ketones Urine Blood Urine Nitrite Ur Leukocyte Esterase Urine RBC Urine WBC Ur Squamous Epith Cells Urine Bacteria Hyaline Casts Respiratory Panel [place] Adenovirus (Rapid PCR) B.pert (TEM-PCR) B.parapertussis DNA PCR C. pneumoniae DNA (PCR) Coronavirus OC43 (PCR) Coronavirus HKU1 (PCR) Coronavirus 229E (PCR) Coronavirus NL63 (PCR) Human Metapneumovir PCR Influenza A (RT-PCR) Influenza B (RT-PCR) M. pneumoniae (PCR) Parainfluenza 1 (PCR) Parainfluenza 2 (PCR) Parainfluenza 3 (PCR) Parainfluenza 4 (PCR) RSV (PCR) Entero/Rhino (PCR) SARS-CoV-2 RNA (RT-PCR) Imaging Radiologist's Impressions: Impressions Chest X-Ray 08/09/24 13:00 IMPRESSION: 1. No acute pulmonary findings. 2. Centrilobular emphysema. 3. Left upper lobe pulmonary nodule, unchanged. Electronically signed by: Bipin Griggs MD 08/09/2024 03:02 PM EDT RP Assessment and Plan (1) COVID-19: Status: Acute Plan 69F PMH chronic hypoxic and hypercapnic respiratory failure due to COPD on 3 L at rest and 6 L on activity, hypertension, osteoporosis, mood disorder presented with cough and shortness of breath acute on chronic hypercapneic and chronic hypoxic respiraotry failure due to copd with acute decompensation, covid, and compensation for contraction alkalosis nippv at night steroids, nebs unclear is COVID PCR is positive due to recent infection versus recurrent Will give normal saline and IV Diamox, monitor VBG, hold Lasix Mood disorder Lamictal Hypertension Toprol Obesity Weight loss recommended DVT prophylaxis Lovenox Full Code Patient with significant shortness breath and CO2 not at baseline therefore expected require at least 2 midnights inpatient Quality Stroke Does the patient have a stroke diagnosis?: No VTE Prior VTE?: No VTE Risk Level:: Medical - moderate - high VTE Device Contraindication: Treatment Not Indicated VTE Drug Contraindication: N/A - Med Ordered
[2024-08-09] MEDS: 0.9 % Sodium Chloride 1,000 ML 500 ML IVCONT (17:23)
[2024-08-09] MEDS: acetaZOLAMIDE sodium 500 MG VIAL 250 MG IVPUSH (17:29)
--- NOTE | 2024-08-09 19:02 | MHC.EDTECH ---
1200 cc emptied from the medical center canister
--- NOTE | 2024-08-09 20:39 | PHA.MEDREC ---
Pharmacy Consult ? Medication Reconciliation Pharmacy has completed the medication reconciliation. Med rec was done using list from [facility]. According to list, pt is supposed to take azithromycin 250 mg daily from 08/08/24 until 08/12/24 and she's supposed to start prednisone tapering schedule on 08/10/24 (30 mg daily x3days, 20 mg daily x3 days, 10 mg daily x3 days).
[2024-08-09] MEDS: 0.9 % Sodium Chloride Flush 3 ML SYRINGE IVFLUSH (21:19)
[2024-08-09] MEDS: lamoTRIgine 100 MG TABLET 300 MG PO (21:19)
[2024-08-09] MEDS: Montelukast Sodium 10 MG TABLET PO (21:19)
[2024-08-09] MEDS: Theophylline Anhydrous ER 400 MG TAB.ER.24H 200 MG PO (21:19)
[2024-08-09] MEDS: Mirtazapine 15 MG TABLET PO (21:19)
[2024-08-10] VITALS (9 sets, daily range): BP systolic 143–167; BP diastolic 67–81; PULSE 63–78; RESP 16–20; TEMP 36.1–36.6; O2SAT 94–98
[2024-08-10] MEDS: acetaZOLAMIDE sodium 500 MG VIAL 250 MG IVPUSH ×2 (01:23→09:08)
[2024-08-10 06:01] LABS: Venous Blood Gas Refer to POC result
[2024-08-10 06:05] LABS: VBG Base Excess 13.9 mmol/L; VBG HCO3 42 mmol/L (22-26); VBG pCO2 77 mmHg; VBG pH 7.34 (7.32-7.43); VBG pO2 31 mmHg
[2024-08-10 06:18] LABS: Hematocrit 35.9 % (37.0-47.0); Hemoglobin 10.8 g/dl (12.0-16.0); Mean Corpuscular HGB Conc 30.1 g/dl (31.0-35.0); Mean Corpuscular Hemoglobin 29.3 pg (27.0-33.0); Mean Corpuscular Volume 97.3 fL (80.0-98.0); Mean Platelet Volume 9.9 fL (9.4-12.3); Platelet Count 368 X10*3/uL (160-400); Red Blood Count 3.69 X10*6/uL (4.20-5.50); White Blood Count 9.1 X10*3/uL (4.8-10.8)
[2024-08-10 06:32] LABS: Anion Gap 9 (12-20); Blood Urea Nitrogen 16 mg/dL (9-16); Carbon Dioxide 40 mmol/L (22-29); Chloride 97 mmol/L (96-108); Creatinine Clr Calc Pharmacy 59.4; Estimated Glomerular Filt Rate > 60; Glucose Fasting 97 mg/dL (60-99); Magnesium 2.1 mg/dL (1.6-2.6); Potassium 3.7 mmol/L (3.3-5.1); Sodium 142 mmol/L (135-145)
--- NOTE | 2024-08-10 06:35 | PC.NURSE ---
Pt admitted to s4 from ED. +Covid, precautions in place. Pt on 3L nc at rest, 6L nc with activity at baseline. HS bipap overnight, managed by respiratory, settings 12/6/32% to maintain spo2 90-95% per protocol. Pt tolerated. Pt denies sob. Breathing is even and unlabored without distress. Critical Tigertext from lab to development writer and covering Dr. Diaz with co2 critical at 40 (though improved from 44 previous). Pt alerts to voice and light touch overnight, easily arousable. SR with PACs on tele. Denies pain. Purewick in place for baseline urge incontinence. Please see shift/admission assessments, tasks, and MAR for full details. Bed alarm on and safety measures in place. Call marroquin within reach, able to make needs known and rings appropriately.
[2024-08-10] MEDS: 0.9 % Sodium Chloride Flush 3 ML SYRINGE IVFLUSH ×3 (09:05→21:29)
[2024-08-10] MEDS: methylPREDNISolone Sod Succ 40 MG/ML VIAL IVPUSH ×2 (09:06→21:28)
[2024-08-10] MEDS: Aspirin Enteric Coated 81 MG TABLET.DR PO (09:08)
[2024-08-10] MEDS: Enoxaparin Sodium 40 MG/0.4 ML SYRINGE SUBCUT (09:09)
[2024-08-10] MEDS: Theophylline Anhydrous ER 400 MG TAB.ER.24H 200 MG PO ×2 (09:09→21:28)
[2024-08-10] MEDS: lamoTRIgine 100 MG TABLET 200 MG PO (09:09)
[2024-08-10] MEDS: 0.9 % Sodium Chloride 1,000 ML 999 ML IV (10:18)
[2024-08-10] MEDS: Cholecalciferol (Vitamin D3) 25 MCG TABLET 50 MCG PO (10:19)
[2024-08-10] MEDS: Azithromycin 250 MG TABLET PO (10:19)
[2024-08-10] MEDS: Metoprolol Succinate ER 50 MG TAB.ER.24H PO (10:19)
[2024-08-10] MEDS: Docusate Sodium 100 MG CAPSULE PO (10:19)
[2024-08-10] MEDS: ARIPiprazole 10 MG TABLET PO (10:20)
[2024-08-10] MEDS: guaiFENesin LA 600 MG TAB.ER.12H PO ×2 (10:20→21:29)
[2024-08-10] MEDS: Gabapentin 100 MG CAPSULE PO ×3 (10:20→21:29)
--- NOTE | 2024-08-10 10:32 | P.PNIM_ITS ---
Subjective Subjective Date of Service: 08/10/24 Interval History: feeling about the same Physical Exam 2 Vital Signs: Vital Signs: Last Vital Signs Temp 97.0 F 08/10/24 07:08 Pulse 65 08/10/24 07:08 Resp 20 08/10/24 07:08 BP 167/80 H 08/10/24 07:08 Pulse Ox 96 08/10/24 07:08 O2 Del Method BiPAP 08/10/24 07:08 O2 Flow Rate 3 08/09/24 20:49 Oxygen Flow Rate 3 08/09/24 12:53 BMI result Body Mass Index 37.6 General: AO X 3, no acute distress Resp: diminished bilateral, no accessory muscles used CVS: S1,S2,RRR GI: soft, non tender, non distended Neuro: motor grossly intact, alert Psych: appropriate affect, appropriate insight Objective Data Active Medications Acetaminophen (Acetaminophen 325 Mg Tablet) 650 mg PO Q6H PRN PRN Reason: Pain, Mild (Pain Scale 1-3), fever or headache Acetazolamide (Acetazolamide Sodium 500 Mg Vial) 250 mg IVPUSH Q8H [facility] Stop: 08/11/24 01:16 Last Admin: 08/10/24 09:08 Dose: 250 mg Documented By: SAMANTHA Albuterol/Ipratropium (Albuterol/Iprat 2.5/0.5mg 3 Ml Ampul.Neb) 3 ml INHALE RQ4H WHILE AWAKE PRN PRN Reason: sob Aripiprazole (Aripiprazole 10 Mg Tablet) 10 mg PO DAILY [facility] Last Admin: 08/10/24 10:20 Dose: 10 mg Documented By: SAMANTHA Aspirin (Aspirin Enteric Coated 81 Mg Tablet.Dr) 81 mg PO DAILY [facility] Last Admin: 08/10/24 09:08 Dose: 81 mg Documented By: SAMANTHA Azithromycin (Azithromycin 250 Mg Tablet) 250 mg PO DAILY [facility] Stop: 08/13/24 08:59 Last Admin: 08/10/24 10:19 Dose: 250 mg Documented By: SAMANTHA Calcium Carbonate (Calcium Carbonate 750 Mg Tab.Chew) 750 mg PO Q4H PRN PRN Reason: Heartburn Cyclobenzaprine HCl (Cyclobenzaprine Hcl 5 Mg Tablet) 5 mg PO Q8H PRN PRN Reason: Muscle Pain Docusate Sodium (Docusate Sodium 100 Mg Capsule) 100 mg PO DAILY [facility] Last Admin: 08/10/24 10:19 Dose: 100 mg Documented By: SAMANTHA Enoxaparin Sodium (Enoxaparin Sodium 40 Mg/0.4 Ml Syringe) 40 mg SUBCUT Q24H [facility] Last Admin: 08/10/24 09:09 Dose: 40 mg Documented By: SAMANTHA Fluticasone/Vilanterol (Fluticasone/Vilanterol 200/25 Blst.W.Dev) 1 puff INHALE DAILY [facility] Last Admin: 08/10/24 10:12 Dose: Not Given Documented By: ANGELICA Non-Admin Reason: Med Not Available Gabapentin (Gabapentin 100 Mg Capsule) 100 mg PO TID [facility] Last Admin: 08/10/24 10:20 Dose: 100 mg Documented By: SAMANTHA Guaifenesin (Guaifenesin [place] 600 Mg Tab.Er.12h) 600 mg PO Q12H [facility] Last Admin: 08/10/24 10:20 Dose: 600 mg Documented By: SAMANTHA Lactulose (Lactulose 20 Gm/30 Ml Solution) 20 gm PO DAILY PRN PRN Reason: Constipation Lamotrigine (Lamotrigine 100 Mg Tablet) 200 mg PO DAILY [facility] Last Admin: 08/10/24 09:09 Dose: 200 mg Documented By: SAMANTHA Lamotrigine (Lamotrigine 100 Mg Tablet) 300 mg PO BEDTIME [facility] Last Admin: 08/09/24 21:19 Dose: 300 mg Documented By: TYSHAWN Magnesium Hydroxide (Milk Of Magnesia 30 Ml Oral.Susp) 30 ml PO DAILY PRN PRN Reason: Constipation Melatonin (Melatonin 3 Mg Tablet) 6 mg PO BEDTIME PRN PRN Reason: Insomnia Methylprednisolone Sodium Succinate (Methylprednisolone Sod Succ 40 Mg/Ml Vial) 40 mg IVPUSH Q12H [facility] Last Admin: 08/10/24 09:06 Dose: 40 mg Documented By: SAMANTHA Metoprolol Succinate (Metoprolol Succinate Er 50 Mg Tab.Er.24h) 50 mg PO DAILY [facility]; Protocol Last Admin: 08/10/24 10:19 Dose: 50 mg Documented By: SAMANTHA Mirtazapine (Mirtazapine 15 Mg Tablet) 15 mg PO BEDTIME [facility] Last Admin: 08/09/24 21:19 Dose: 15 mg Documented By: TYSHAWN Montelukast Sodium (Montelukast Sodium 10 Mg Tablet) 10 mg PO BEDTIME [facility] Last Admin: 08/09/24 21:19 Dose: 10 mg Documented By: TYSHAWN Non-Formulary Medication (Calcium Carbonate-Vitamin D3 [Calcium 500 + D]) 1 tab PO BID [facility] Omeprazole (Omeprazole 20 Mg Capsule.Dr) 20 mg PO DAILY@0630 [facility] Senna (Sennosides 8.6 Mg Tablet) 8.6 mg PO BEDTIME [facility] Sodium Chloride (0.9 % Sodium Chloride Flush 3 Ml Syringe) 3 ml IVFLUSH QSHIFT [facility] Last Admin: 08/10/24 09:05 Dose: 3 ml Documented By: SAMANTHA Theophylline (Theophylline Anhydrous Er 400 Mg Tab.Er.24h) 200 mg PO BID [facility] Last Admin: 08/10/24 09:09 Dose: 200 mg Documented By: SAMANTHA Vilazodone HCl (Vilazodone Hcl 40 Mg Tablet) 40 mg PO DAILY [facility] Vitamin D (Cholecalciferol (Vitamin D3) 25 Mcg Tablet) 50 mcg PO DAILY [facility] Last Admin: 08/10/24 10:19 Dose: 50 mcg Documented By: SAMANTHA Labs 08/10/24 05:55 08/10/24 05:55 Labs: Laboratory Results - last 24 hr 08/09/24 08/09/24 08/09/24 13:47 14:00 15:54 MCV 97.3 MCH 29.3 MCHC 30.2 L RDW 15.0 Plt Count 398 MPV 9.1 L Immature Gran % (Auto) 3.0 H Neut % (Auto) 91.4 H Lymph % (Auto) 3.3 L [place] % (Auto) 1.8 L Eos % (Auto) 0.0 Baso % (Auto) 0.5 Lymph # (Auto) 0.3 L [place] # (Auto) 0.2 Eos # (Auto) 0.0 Baso # (Auto) 0.1 Abs Immat Gran (auto) 0.27 H Absolute Neuts (auto) 8.3 Absolute Nucleated RBC 0.000 Nucleated RBC % (auto) 0.0 Smear Tech's Comments VERIFIED VBG pH 7.42 VBG pCO2 90 VBG pO2 100 VBG HCO3 58 H VBG O2 Saturation 100.0 VBG Base Excess 28.1 Anion Gap 14 Estim Creat Clear Calc 68.3 Estimated GFR > 60 Random Glucose 145 H Fasting Glucose Lactic Acid 2.4 H* Lactic Acid F/U @ 2Hr Calcium 9.4 Magnesium 1.9 Total Bilirubin 0.2 Direct Bilirubin < 0.2 AST 22 ALT 24 Alkaline Phosphatase 74 Troponin I High Sens 5.5 D B-Natriuretic Peptide 284 H Total Protein 6.7 Albumin 4.0 Procalcitonin 0.03 Urine Color Yellow Urine Appearance Clear Urine pH 8.5 Ur Specific [place] 1.010 Urine Protein Trace Urine Glucose (UA) Negative Urine Ketones Negative Urine Blood Trace H Urine Nitrite Negative Ur Leukocyte Esterase Negative Urine RBC 3-5 H Urine WBC 0-5 Ur Squamous Epith Cells 0-2 Urine Bacteria None Seen Hyaline Casts 0-2 Respiratory Panel [place] See Note Adenovirus (Rapid PCR) Not Detected B.pert (TEM-PCR) Not Detected B.parapertussis DNA PCR Not Detected C. pneumoniae DNA (PCR) Not Detected Coronavirus OC43 (PCR) Not Detected Coronavirus HKU1 (PCR) Not Detected Coronavirus 229E (PCR) Not Detected Coronavirus NL63 (PCR) Not Detected Human Metapneumovir PCR Not Detected Influenza A (RT-PCR) Not Detected Influenza B (RT-PCR) Not Detected M. pneumoniae (PCR) Not Detected Parainfluenza 1 (PCR) Not Detected Parainfluenza 2 (PCR) Not Detected Parainfluenza 3 (PCR) Not Detected Parainfluenza 4 (PCR) Not Detected RSV (PCR) Not Detected Entero/Rhino (PCR) Not Detected SARS-CoV-2 RNA (RT-PCR) Detected A 08/09/24 08/10/24 08/10/24 16:20 05:55 06:01 MCV 97.3 MCH 29.3 MCHC 30.1 L RDW 15.0 Plt Count 368 MPV 9.9 Immature Gran % (Auto) Neut % (Auto) Lymph % (Auto) [place] % (Auto) Eos % (Auto) Baso % (Auto) Lymph # (Auto) [place] # (Auto) Eos # (Auto) Baso # (Auto) Abs Immat Gran (auto) Absolute Neuts (auto) Absolute Nucleated RBC 0.000 Nucleated RBC % (auto) 0.0 Smear Tech's Comments VBG pH 7.34 VBG pCO2 77 VBG pO2 31 VBG HCO3 42 H VBG O2 Saturation 52.0 VBG Base Excess 13.9 Anion Gap 9 L Estim Creat Clear Calc 59.4 Estimated GFR > 60 Random Glucose Fasting Glucose 97 Lactic Acid Lactic Acid F/U @ 2Hr 1.9 Calcium 9.0 Magnesium 2.1 Total Bilirubin Direct Bilirubin AST ALT Alkaline Phosphatase Troponin I High Sens B-Natriuretic Peptide Total Protein Albumin Procalcitonin Urine Color Urine Appearance Urine pH Ur Specific [place] Urine Protein Urine Glucose (UA) Urine Ketones Urine Blood Urine Nitrite Ur Leukocyte Esterase Urine RBC Urine WBC Ur Squamous Epith Cells Urine Bacteria Hyaline Casts Respiratory Panel [place] Adenovirus (Rapid PCR) B.pert (TEM-PCR) B.parapertussis DNA PCR C. pneumoniae DNA (PCR) Coronavirus OC43 (PCR) Coronavirus HKU1 (PCR) Coronavirus 229E (PCR) Coronavirus NL63 (PCR) Human Metapneumovir PCR Influenza A (RT-PCR) Influenza B (RT-PCR) M. pneumoniae (PCR) Parainfluenza 1 (PCR) Parainfluenza 2 (PCR) Parainfluenza 3 (PCR) Parainfluenza 4 (PCR) RSV (PCR) Entero/Rhino (PCR) SARS-CoV-2 RNA (RT-PCR) Assessment and Plan (1) COVID-19: Status: Acute Plan 69F PMH chronic hypoxic and hypercapnic respiratory failure due to COPD on 3 L at rest and 6 L on activity, hypertension, osteoporosis, mood disorder presented with cough and shortness of breath acute on chronic hypercapneic and chronic hypoxic respiraotry failure due to copd with acute decompensation, covid, and compensation for contraction alkalosis nippv at night steroids, nebs unclear is COVID PCR is positive due to recent infection versus recurrent continue IV Diamox, monitor VBG, hold Lasix (baseline co2 - 60-70, baseline bicarb mid 30s) Mood disorder Lamictal Hypertension Toprol Obesity Weight loss recommended DVT prophylaxis Lovenox Full Code reason for continued hospitalization:still sob Quality Stroke Does the patient have a stroke diagnosis?: No VTE Prior VTE?: No VTE Risk Level:: Medical - moderate - high VTE Device Contraindication: Treatment Not Indicated VTE Drug Contraindication: N/A - Med Ordered
[2024-08-10] MEDS: Vilazodone HCL 40 MG TABLET PO (11:21)
--- NOTE | 2024-08-10 13:19 | PM.CNPUL ---
History of Present Illness History of Present Illness Consult date: 08/10/24 Chief complaint: copd Narrative: 69-year-old lady with underlying advanced COPD on supplemental oxygen 3 L at rest and 6 with exertion, also diastolic dysfunction admitted with dyspnea secondary to exacerbation of underlying COPD secondary to COVID-19. Patient was treated with empiric systemic glucocorticoids, nebulized bronchodilators, and antibiotics with slow improvement. However, she still has significant wheezing fatigue, and dyspnea on exertion. Review of Systems Constitutional: Constitutional: Denies daytime sleepiness, Denies excessive sweating, Reports fatigue, Denies fever(s), Denies lethargy, Reports malaise, Denies night sweats, Denies snoring and Denies weight loss Eyes: Eyes: Denies blurry vision and Denies itchy eyes ENT: Denies nasal congestion, Denies post nasal drip, Denies sinus pain, Denies sinus pressure and Denies other ( Thrush) Cardiovascular: Cardiovascular: Denies chest pain, Denies pedal edema, Denies dyspnea, Reports dyspnea on exertion, Denies orthopnea and Denies paroxysmal nocturnal dyspnea Respiratory: Respiratory: Denies cough, Denies hemoptysis, Denies excessive phlegm production, Denies dyspnea, Reports dyspnea on exertion, Denies snoring and Denies wheezing Gastrointestinal: Gastrointestinal: Denies abdominal pain and Denies heartburn Musculoskeletal: Musculoskeletal: Denies myalgias, Denies arthralgias and Denies joint swelling Integumentary/Breasts: Skin/Breast: Denies rash Neurologic: Denies memory loss and Denies seizure-like activity Psychiatric: Psychiatric: Denies abnormal sleep pattern, Denies anxiety and Denies memory loss Endocrine: Endocrine: Denies excessive sweating, Reports fatigue and Denies heat intolerance Hematologic/Lymphatic: Hematologic/Lymphatic: Denies easy bruising Allergic/Immunologic: Allergic/Immunologic: Denies itchy eyes, Denies seasonal rhinorrhea and Denies wheezing PMFSH Past Medical History Medical History Rib fractures Pulmonary nodule Tubular adenoma of colon (~2006) Osteopenia (~2012) Bronchopneumonia Chest pain Chronic respiratory alkalosis ILD (interstitial lung disease) CO2 retention Acute on chronic respiratory failure with hypoxia and hypercapnia Bipolar depression Eczema Limb swelling Insomnia Bronchitis Vasomotor rhinitis COPD (chronic obstructive pulmonary disease) Chronic respiratory failure Fall Acute metabolic encephalopathy Acute and chronic respiratory failure with hypercapnia Family History Family History Other Hypertension Surgical History Surgical History History of carpal tunnel surgery (~2000) History of ventral hernia repair (~2003) History of left inguinal hernia repair (~1995) History of tracheostomy (~2016) History of cataract surgery (~2018) History of colonoscopy Social History Social History Household Members: None and Other Household Members Other:: half-way Housing: Other Housing Other:: half-way [facility] Are you a primary skin care consultant to a significant other at home: No Do you presently have visiting nurse 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) Alcohol intake: unknown Patient Tobacco Use Status: Former Tobacco user Tobacco use type: Cigarette Years Smoked: 20+ years e-Cigarette/Vaping Use: Never Used Second Hand Smoke Exposure: No Advance Directives Date on File: 11/30/21 service: No Current occupational status: disabled Meds Allergies Allergy/AdvReac Type Severity Reaction Status Date / Time codeine [Codeine] Allergy Intermediate RESTLESS/RA Verified 08/09/24 13:01 SH haloperidol [Haldol] Allergy Intermediate Palpitation Verified 08/09/24 13:01 s Sulfa (Sulfonamide Allergy Intermediate HIVES Verified 08/09/24 13:01 Antibiotics) Active Medications: Current Medications Acetaminophen (Acetaminophen 325 Mg Tablet) 650 mg PO Q6H PRN PRN Reason: Pain, Mild (Pain Scale 1-3), fever or headache Acetazolamide (Acetazolamide Sodium 500 Mg Vial) 250 mg IVPUSH Q8H ALYSSA Stop: 08/11/24 01:16 Last Admin: 08/10/24 09:08 Dose: 250 mg Albuterol/Ipratropium (Albuterol/Iprat 2.5/0.5mg 3 Ml Ampul.Neb) 3 ml INHALE RQ4H WHILE AWAKE PRN PRN Reason: sob Aripiprazole (Aripiprazole 10 Mg Tablet) 10 mg PO DAILY PENDING SALE TO [facility] Last Admin: 08/10/24 10:20 Dose: 10 mg Aspirin (Aspirin Enteric Coated 81 Mg Tablet.Dr) 81 mg PO DAILY PENDING [facility] TO [facility] Last Admin: 08/10/24 09:08 Dose: 81 mg Azithromycin (Azithromycin 250 Mg Tablet) 250 mg PO DAILY [facility]END[facility] TO [facility] Stop: 08/13/24 08:59 Last Admin: 08/10/24 10:19 Dose: 250 mg Calcium Carbonate (Calcium Carbonate 750 Mg Tab.Chew) 750 mg PO Q4H PRN PRN Reason: Heartburn Cyclobenzaprine HCl (Cyclobenzaprine Hcl 5 Mg Tablet) 5 mg PO Q8H PRN PRN Reason: Muscle Pain Docusate Sodium (Docusate Sodium 100 Mg Capsule) 100 mg PO DAILY PENDING S[facility] TO [facility] Last Admin: 08/10/24 10:19 Dose: 100 mg Enoxaparin Sodium (Enoxaparin Sodium 40 Mg/0.4 Ml Syringe) 40 mg SUBCUT Q24H PENDING SALE TO [facility] Last Admin: 08/10/24 09:09 Dose: 40 mg Fluticasone/Vilanterol (Fluticasone/Vilanterol 200/25 Blst.W.Dev) 1 puff INHALE DAILY PENDING SALE TO [facility] Last Admin: 08/10/24 10:12 Dose: Not Given Gabapentin (Gabapentin 100 Mg Capsule) 100 mg PO TID PENDING S[facility] TO [facility] Last Admin: 08/10/24 10:20 Dose: 100 mg Guaifenesin (Guaifenesin La 600 Mg Tab.Er.12h) 600 mg PO Q12H PENDING SALE TO [facility] Last Admin: 08/10/24 10:20 Dose: 600 mg Lactulose (Lactulose 20 Gm/30 Ml Solution) 20 gm PO DAILY PRN PRN Reason: Constipation Lamotrigine (Lamotrigine 100 Mg Tablet) 200 mg PO DAILY PENDING [facility] Last Admin: 08/10/24 09:09 Dose: 200 mg Lamotrigine (Lamotrigine 100 Mg Tablet) 300 mg PO BEDTIME PENDING S[facility] TO [facility] Last Admin: 08/09/24 21:19 Dose: 300 mg Magnesium Hydroxide (Milk Of Magnesia 30 Ml Oral.Susp) 30 ml PO DAILY PRN PRN Reason: Constipation Melatonin (Melatonin 3 Mg Tablet) 6 mg PO BEDTIME PRN PRN Reason: Insomnia Methylprednisolone Sodium Succinate (Methylprednisolone Sod Succ 40 Mg/Ml Vial) 40 mg IVPUSH Q12H PENDING SALE TO [facility] Last Admin: 08/10/24 09:06 Dose: 40 mg Metoprolol Succinate (Metoprolol Succinate Er 50 Mg Tab.Er.24h) 50 mg PO DAILY PENDING SALE TO [facility]; Protocol Last Admin: 08/10/24 10:19 Dose: 50 mg Mirtazapine (Mirtazapine 15 Mg Tablet) 15 mg PO BEDTIME PENDING [facility] TO [facility] Last Admin: 08/09/24 21:19 Dose: 15 mg Montelukast Sodium (Montelukast Sodium 10 Mg Tablet) 10 mg PO BEDTIME PENDING [facility]ALE TO [facility] Last Admin: 08/09/24 21:19 Dose: 10 mg Non-Formulary Medication (Calcium Carbonate-Vitamin D3 [Calcium 500 + D]) 1 tab PO BID PENDING SALE TO [facility] Omeprazole (Omeprazole 20 Mg Capsule.Dr) 20 mg PO DAILY@0630 PENDING SALE TO [facility] Senna (Sennosides 8.6 Mg Tablet) 8.6 mg PO BEDTIME PENDING SALE TO [facility] Sodium Chloride (0.9 % Sodium Chloride Flush 3 Ml Syringe) 3 ml IVFLUSH QSHIFT PENDING SALE TO [facility] Last Admin: 08/10/24 09:05 Dose: 3 ml Theophylline (Theophylline Anhydrous Er 400 Mg Tab.Er.24h) 200 mg PO BID PENDING [facility] Last Admin: 08/10/24 09:09 Dose: 200 mg Vilazodone HCl (Vilazodone Hcl 40 Mg Tablet) 40 mg PO DAILY PENDING [facility] Last Admin: 08/10/24 11:21 Dose: 40 mg Vitamin D (Cholecalciferol (Vitamin D3) 25 Mcg Tablet) 50 mcg PO DAILY PENDING [facility] TO [facility] Last Admin: 08/10/24 10:19 Dose: 50 mcg Home Medications ?Medication ?Instructions ?Recorded ?Confirmed ?Last Taken ?Type acetaminophen 500 mg tablet 1,000 mg PO Q6H PRN Pain 02/09/21 08/09/24 07/27/24 07:00 History albuterol sulfate 90 mcg/actuation 2 puff inhalation QID PRN 02/09/21 08/09/24 07/27/24 07:00 History aerosol inhaler (Proventil HFA) Respiratory Distress alendronate 70 mg tablet (Fosamax) 70 mg PO DOMINGUEZ 02/09/21 08/09/24 07/21/24 History aspirin 81 mg tablet,delayed 81 mg PO DAILY 02/09/21 08/09/24 07/27/24 07:00 History release cholecalciferol (vitamin D3) 50 50 mcg PO DAILY 02/09/21 08/09/24 07/27/24 07:00 History mcg (2,000 unit) capsule (Vitamin D3) lamotrigine 150 mg tablet 300 mg PO BEDTIME 0308/09/24 07/27/24 07:00 History lamotrigine 200 mg tablet 200 mg PO DAILY 02/09/21 08/09/24 07/27/24 07:00 History montelukast 10 mg tablet 10 mg PO BEDTIME 02/09/21 08/09/24 07/27/24 07:00 History mirtazapine 15 mg tablet 15 mg PO BEDTIME 09/10/21 08/09/24 07/27/24 07:00 History sennosides 8.6 mg tablet (Senokot) 8.6 mg PO BEDTIME 09/10/21 08/09/24 07/27/24 07:00 History metoprolol succinate 50 mg 50 mg PO DAILY 11/18/21 08/09/24 07/27/24 07:00 History tablet,extended release 24 hr aripiprazole 15 mg tablet 10 mg PO DAILY 11/02/22 08/09/24 07/27/24 07:00 History omega-3 fatty acids-fish oil 300 1 cap PO BID 11/02/22 08/09/24 07/27/24 07:00 History mg-500 mg capsule (Fish Oil) Oxygen Home Use 04/15/23 05/17/24 Unknown History fluticasone propionate 50 1 spray intranasal DAILY Allergies 04/15/23 08/09/24 07/27/24 07:00 History mcg/actuation nasal spray,suspension nebulizers 04/15/23 05/17/24 Unknown History vilazodone 40 mg tablet 40 mg PO DAILY 04/15/23 08/09/24 07/27/24 07:00 History gabapentin 100 mg capsule 100 mg PO TID 09/20/23 08/09/24 07/27/24 12:00 History fluticasone furoate 200 1 inh inhalation DAILY SOB 06/21/24 08/09/24 07/27/24 07:00 History mcg-vilanterol 25 mcg/dose inhalation powder (Breo Ellipta) pantoprazole 40 mg tablet,delayed 40 mg PO DAILY@0630 06/21/24 08/09/24 07/27/24 07:00 History release salmeterol 50 mcg/dose blister 1 inh inhalation BID SOB 06/21/24 08/09/24 07/27/24 07:00 History powder for inhalation (Serevent Diskus) albuterol sulfate 2.5 mg/3 mL 2.5 mg inhalation Q6H PRN 07/27/24 08/09/24 Unknown History (0.083 %) solution for nebulization Shortness Of Breath Or Wheezing betamethasone dipropionate 0.05 % 1 appl topical Q12H PRN Dermititis 07/27/24 08/09/24 07/27/24 07:00 History topical cream calcium carbonate 500 mg-vitamin 1 tab PO BID 07/27/24 08/09/24 07/27/24 07:00 History D3 5 mcg (200 unit) tablet (Calcium 500 + D) cyclobenzaprine 5 mg tablet 5 mg PO Q8H PRN Muscle Pain 07/27/24 08/09/24 07/27/24 07:00 History diclofenac sodium 1 % topical gel 1 g topical Q8H PRN Pain 07/27/24 08/09/24 07/27/24 07:00 History docusate sodium 100 mg capsule 100 mg PO DAILY Constipation 07/27/24 08/09/24 07/27/24 07:00 History fluocinolone acetonide oil 0.01 % 4 drp otic (ears) Q48H 07/27/24 08/09/24 Unknown History ear drops (DermOtic Oil) lactulose 10 gram/15 mL oral 30 ml PO DAILY PRN Constipation 07/27/24 08/09/24 07/27/24 07:00 History solution meloxicam 15 mg tablet 15 mg PO DAILY 07/27/24 08/09/24 07/27/24 07:00 History theophylline 200 mg 200 mg PO BID 07/27/24 08/09/24 07/27/24 07:00 History tablet,extended release,12 hr azithromycin 250 mg tablet 250 mg PO DAILY 08/09/24 08/09/24 Unknown History guaifenesin 600 mg tablet, 600 mg PO Q12H 08/09/24 08/09/24 Unknown History extended release 12 hr (Mucinex) Physical Exam Vital Signs: Vital Signs: Last Vital Signs Temp 97.5 F 08/10/24 11:03 Pulse 74 08/10/24 11:03 Resp 20 08/10/24 11:03 BP 153/67 H 08/10/24 11:03 Pulse Ox 97 08/10/24 11:03 O2 Del Method Nasal Cannula 08/10/24 11:03 O2 Flow Rate 3 08/10/24 11:03 Oxygen Flow Rate 3 08/09/24 12:53 BMI result Body Mass Index 37.6 Const: General: no acute distress and alert Nutritional Appearance: not obese Orientation/consciousness: Other orientation findings ( oriented) HEENT: Head: Yes atraumatic Eyes: General: appearance normal, both eyes and all related structures Sclerae: sclerae normal EOM: EOMs intact bilaterally Neck: Neck: Yes supple Lymphatic: no lymphadenopathy noted Resp: Effort & Inspection: normal respiratory effort and no use of accessory muscles Auscultation: wheezes (Bilateral expiratory wheeze) Cardio: Rate: regular rate Rhythm: regular rhythm Heart sounds: no gallops, no murmurs and no rubs Skin: General skin exam: other ( warm) Extrem: General: No clubbing, No cyanosis and Yes edema (Trace bilateral) Results Laboratory Findings 08/10/24 05:55 08/10/24 05:55 Abnormal lab findings: Abnormal Labs 08/09/24 08/09/24 08/09/24 13:47 14:00 15:54 RBC 3.68 L Hgb 10.8 L Hct 35.8 L MCHC 30.2 L MPV 9.1 L Immature Gran % (Auto) 3.0 H Neut % (Auto) 91.4 H Lymph % (Auto) 3.3 L [place] % (Auto) 1.8 L Lymph # (Auto) 0.3 L Abs Immat Gran (auto) 0.27 H VBG HCO3 58 H Chloride 88 L Carbon Dioxide 44 H* Anion Gap Random Glucose 145 H Lactic Acid 2.4 H* B-Natriuretic Peptide 284 H Urine Blood Trace H Urine RBC 3-5 H SARS-CoV-2 RNA (RT-PCR) Detected A 08/10/24 08/10/24 05:55 06:01 RBC 3.69 L Hgb 10.8 L Hct 35.9 L MCHC 30.1 L MPV Immature Gran % (Auto) Neut % (Auto) Lymph % (Auto) [place] % (Auto) Lymph # (Auto) Abs Immat Gran (auto) VBG HCO3 42 H Chloride Carbon Dioxide 40 H* Anion Gap 9 L Random Glucose Lactic Acid B-Natriuretic Peptide Urine Blood Urine RBC SARS-CoV-2 RNA (RT-PCR) Assessment and Plan (1) COVID-19: Status: Acute (2) COPD exacerbation: Status: Acute (3) Acute on chronic hypoxic respiratory failure: Status: Acute Plan Impression: 69-year-old lady with underlying supplemental oxygen dependent COPD 3-6 L admitted with COPD exacerbation secondary to COVID-19 with slow improvement on current empiric therapy. Recommendations: Agree with current empiric therapy with systemic glucocorticoids, nebulized bronchodilators, and empiric antibiotics for possible bacterial superinfection. Procedures Date of Service Date of Service: 08/10/24
--- NOTE | 2024-08-10 13:50 | MHC.CM.PN ---
Addendum entered by Marga Mata RN 08/10/24 13:56: BLANK COPY OF PHYSICIAN ORDERS ARE IN PT'S CHART. Original Note: EMR REVIEWED, PT W/COPD EXAC/COVID, CM CONTACTED PT VIA CELL PHONE AND PT REPORTS SHE LIVES IN SERVICE NET , PT USES A ROLLATER WALKER AT BASELINE, HOME O2 3L AT REST AND 6L W.ACTIVITY ([place]) & A TRILOGY NONINVASIVE VENT AT [facility], PT ALSO HAS A WC FOR LONG DISTANCES AND A SHOWER CHAIR, PT REPORTS SHE DOES NOT HAVE ANY VNA AND THE STAFF ARE MED CERTIFIED. PT ASKING CM ABOUT CHANGING HER INSURANCE TO [facility], PT PROVIDED W/[facility] MEMBER SERVICE NUMBER AND WRITTEN DIRECTIONS TO CONTACT THEM AAS [facility] CONTACT WAS NOT SURE WHEN OPEN ENROLLMENT WAS. PCP/HCP ON FILE VERIFIED.
[2024-08-10] MEDS: Acetaminophen 325 MG TABLET 650 MG PO (16:15)
[2024-08-10] MEDS: Albuterol/Iprat 2.5/0.5MG 3 ML AMPUL.NEB INHALE (16:23)
[2024-08-10] MEDS: lamoTRIgine 100 MG TABLET 300 MG PO (21:28)
[2024-08-10] MEDS: Mirtazapine 15 MG TABLET PO (21:29)
[2024-08-10] MEDS: Montelukast Sodium 10 MG TABLET PO (21:29)
[2024-08-10] MEDS: Sennosides 8.6 MG TABLET PO (21:29)
[2024-08-11] VITALS (11 sets, daily range): BP systolic 113–155; BP diastolic 58–74; PULSE 58–76; RESP 16–20; TEMP 35.8–36.6; O2SAT 94–98
[2024-08-11] MEDS: acetaZOLAMIDE sodium 500 MG VIAL 250 MG IVPUSH (01:02)
[2024-08-11] MEDS: Omeprazole 20 MG CAPSULE.DR PO (05:47)
[2024-08-11 06:58] LABS: Hematocrit 38.5 % (37.0-47.0); Hemoglobin 11.4 g/dl (12.0-16.0); Mean Corpuscular HGB Conc 29.6 g/dl (31.0-35.0); Mean Corpuscular Hemoglobin 29.2 pg (27.0-33.0); Mean Corpuscular Volume 98.7 fL (80.0-98.0); Mean Platelet Volume 9.1 fL (9.4-12.3); Platelet Count 462 X10*3/uL (160-400); Red Cell Distribution Width 15.6 % (11.0-16.0); White Blood Count 9.6 X10*3/uL (4.8-10.8)
[2024-08-11 06:58] LABS: Venous Blood Gas Refer to POC result
[2024-08-11 06:59] LABS: VBG Base Excess 6.1 mmol/L; VBG HCO3 32 mmol/L (22-26); VBG pCO2 54 mmHg; VBG pH 7.38 (7.32-7.43); VBG pO2 52 mmHg
[2024-08-11] MEDS: Albuterol/Iprat 2.5/0.5MG 3 ML AMPUL.NEB INHALE ×2 (08:09→17:03)
[2024-08-11 08:57] LABS: Anion Gap 12 (12-20); Blood Urea Nitrogen 20 mg/dL (9-16); Calcium 8.9 mg/dL (8.4-10.2); Carbon Dioxide 33 mmol/L (22-29); Chloride 101 mmol/L (96-108); Creatinine Clr Calc Pharmacy 56.9; Estimated Glomerular Filt Rate 59; Glucose Fasting 108 mg/dL (60-99); Magnesium 2.3 mg/dL (1.6-2.6); Potassium 4.9 mmol/L (3.3-5.1); Sodium 141 mmol/L (135-145)
[2024-08-11] MEDS: Cholecalciferol (Vitamin D3) 25 MCG TABLET 50 MCG PO (09:46)
[2024-08-11] MEDS: ARIPiprazole 10 MG TABLET PO (09:46)
[2024-08-11] MEDS: guaiFENesin LA 600 MG TAB.ER.12H PO ×2 (09:47→21:37)
[2024-08-11] MEDS: Theophylline Anhydrous ER 400 MG TAB.ER.24H 200 MG PO ×2 (09:47→21:38)
[2024-08-11] MEDS: Gabapentin 100 MG CAPSULE PO ×3 (09:47→21:38)
[2024-08-11] MEDS: lamoTRIgine 100 MG TABLET 200 MG PO (09:48)
[2024-08-11] MEDS: Aspirin Enteric Coated 81 MG TABLET.DR PO (09:49)
[2024-08-11] MEDS: Enoxaparin Sodium 40 MG/0.4 ML SYRINGE SUBCUT (09:50)
[2024-08-11] MEDS: Azithromycin 250 MG TABLET PO (09:50)
[2024-08-11] MEDS: Docusate Sodium 100 MG CAPSULE PO (09:50)
[2024-08-11] MEDS: Metoprolol Succinate ER 50 MG TAB.ER.24H PO (09:51)
[2024-08-11] MEDS: 0.9 % Sodium Chloride Flush 3 ML SYRINGE IVFLUSH ×3 (09:51→21:38)
[2024-08-11] MEDS: methylPREDNISolone Sod Succ 40 MG/ML VIAL IVPUSH ×2 (09:54→21:39)
--- NOTE | 2024-08-11 10:55 | HO.PM.IMPN ---
Subjective Subjective Date of Service: 08/11/24 Interval History: feeling about the same Physical Exam Vital Signs: Vital Signs: Last Vital Signs Temp 97.3 F 08/11/24 07:42 Pulse 75 08/11/24 09:51 Resp 18 08/11/24 08:09 BP 155/74 H 08/11/24 09:51 Pulse Ox 98 08/11/24 07:42 O2 Del Method BiPAP 08/11/24 07:42 O2 Flow Rate 3 08/10/24 23:13 Oxygen Flow Rate 3 08/09/24 12:53 BMI result Body Mass Index 37.6 Const: General: no acute distress and alert Nutritional Appearance: not obese Orientation/consciousness: Other orientation findings ( oriented) HEENT: Head: Yes atraumatic Eyes: General: appearance normal, both eyes and all related structures Sclerae: sclerae normal EOM: EOMs intact bilaterally Neck: Neck: Yes supple Lymphatic: no lymphadenopathy noted Resp: Effort & Inspection: normal respiratory effort and no use of accessory muscles Auscultation: wheezes (Bilateral expiratory wheeze) Cardio: Rate: regular rate Rhythm: regular rhythm Heart sounds: no gallops, no murmurs and no rubs Skin: General skin exam: other ( warm) Extrem: General: No clubbing, No cyanosis and Yes edema (Trace bilateral) Objective Data Active Medications Acetaminophen (Acetaminophen 325 Mg Tablet) 650 mg PO Q6H PRN PRN Reason: Pain, Mild (Pain Scale 1-3), fever or headache Last Admin: 08/10/24 16:15 Dose: 650 mg Documented By: SAMANTHA Albuterol/Ipratropium (Albuterol/Iprat 2.5/0.5mg 3 Ml Ampul.Neb) 3 ml INHALE RQ4H WHILE AWAKE PRN PRN Reason: sob Last Admin: 08/11/24 08:09 Dose: 3 ml Documented By: DUOG Aripiprazole (Aripiprazole 10 Mg Tablet) 10 mg PO DAILY [facility] Last Admin: 08/11/24 09:46 Dose: 10 mg Documented By: ALFRED Aspirin (Aspirin Enteric Coated 81 Mg Tablet.) 81 mg PO DAILY [facility] Last Admin: 08/11/24 09:49 Dose: 81 mg Documented By: ALFRED Azithromycin (Azithromycin 250 Mg Tablet) 250 mg PO DAILY [facility] Stop: 08/13/24 08:59 Last Admin: 08/11/24 09:50 Dose: 250 mg Documented By: ALFRED Calcium Carbonate (Calcium Carbonate 750 Mg Tab.Chew) 750 mg PO Q4H PRN PRN Reason: Heartburn Cyclobenzaprine HCl (Cyclobenzaprine Hcl 5 Mg Tablet) 5 mg PO Q8H PRN PRN Reason: Muscle Pain Docusate Sodium (Docusate Sodium 100 Mg Capsule) 100 mg PO DAILY [facility] Last Admin: 08/11/24 09:50 Dose: 100 mg Documented By: ALFRED Enoxaparin Sodium (Enoxaparin Sodium 40 Mg/0.4 Ml Syringe) 40 mg SUBCUT Q24H [facility] Last Admin: 08/11/24 09:50 Dose: 40 mg Documented By: ALFRED Fluticasone/Vilanterol (Fluticasone/Vilanterol 200/25 Blst.W.Dev) 1 puff INHALE DAILY [facility] Last Admin: 08/11/24 08:07 Dose: Not Given Documented By: DOUG Non-Admin Reason: Med Not Available Gabapentin (Gabapentin 100 Mg Capsule) 100 mg PO TID [facility] Last Admin: 08/11/24 09:47 Dose: 100 mg Documented By: ALFRED Guaifenesin (Guaifenesin La 600 Mg Tab.Er.12h) 600 mg PO Q12H [facility] Last Admin: 08/11/24 09:47 Dose: 600 mg Documented By: ALFRED Lactulose (Lactulose 20 Gm/30 Ml Solution) 20 gm PO DAILY PRN PRN Reason: Constipation Lamotrigine (Lamotrigine 100 Mg Tablet) 200 mg PO DAILY [facility] Last Admin: 08/11/24 09:48 Dose: 200 mg Documented By: ALFRED Lamotrigine (Lamotrigine 100 Mg Tablet) 300 mg PO BEDTIME [facility] Last Admin: 08/10/24 21:28 Dose: 300 mg Documented By: JACOB Magnesium Hydroxide (Milk Of Magnesia 30 Ml Oral.Susp) 30 ml PO DAILY PRN PRN Reason: Constipation Melatonin (Melatonin 3 Mg Tablet) 6 mg PO BEDTIME PRN PRN Reason: Insomnia Methylprednisolone Sodium Succinate (Methylprednisolone Sod Succ 40 Mg/Ml Vial) 40 mg IVPUSH Q12H [facility] Last Admin: 08/11/24 09:54 Dose: 40 mg Documented By: ALFRED Metoprolol Succinate (Metoprolol Succinate Er 50 Mg Tab.Er.24h) 50 mg PO DAILY [facility]; Protocol Last Admin: 08/11/24 09:51 Dose: 50 mg Documented By: ALFRED Mirtazapine (Mirtazapine 15 Mg Tablet) 15 mg PO BEDTIME [facility] Last Admin: 08/10/24 21:29 Dose: 15 mg Documented By: JACOB Montelukast Sodium (Montelukast Sodium 10 Mg Tablet) 10 mg PO BEDTIME [facility] Last Admin: 08/10/24 21:29 Dose: 10 mg Documented By: JACOB Omeprazole (Omeprazole 20 Mg Capsule.Dr) 20 mg PO DAILY@0630 [facility] Last Admin: 08/11/24 05:47 Dose: 20 mg Documented By: ANTOIC Senna (Sennosides 8.6 Mg Tablet) 8.6 mg PO BEDTIME [facility] Last Admin: 08/10/24 21:29 Dose: 8.6 mg Documented By: JACOB Sodium Chloride (0.9 % Sodium Chloride Flush 3 Ml Syringe) 3 ml IVFLUSH QSHIFT [facility] Last Admin: 08/11/24 09:51 Dose: 3 ml Documented By: ALFRED Theophylline (Theophylline Anhydrous Er 400 Mg Tab.Er.24h) 200 mg PO BID [facility] Last Admin: 08/11/24 09:47 Dose: 200 mg Documented By: ALFRED Vilazodone HCl (Vilazodone Hcl 40 Mg Tablet) 40 mg PO DAILY [facility] Last Admin: 08/10/24 11:21 Dose: 40 mg Documented By: SAMANTHA Vitamin D (Cholecalciferol (Vitamin D3) 25 Mcg Tablet) 50 mcg PO DAILY [facility] Last Admin: 08/11/24 09:46 Dose: 50 mcg Documented By: ALFRED Labs 08/11/24 06:47 08/11/24 08:18 Labs: Laboratory Results - last 24 hr 08/11/24 08/11/24 08/11/24 06:47 06:55 08:18 MCV 98.7 H MCH 29.2 MCHC 29.6 L RDW 15.6 Plt Count 462 H D MPV 9.1 L Absolute Nucleated RBC 0.000 Nucleated RBC % (auto) 0.0 VBG pH 7.38 VBG pCO2 54 VBG pO2 52 VBG HCO3 32 H VBG O2 Saturation 89.0 VBG Base Excess 6.1 Anion Gap 12 Estim Creat Clear Calc 56.9 Estimated GFR 59 Fasting Glucose 108 H Calcium 8.9 Magnesium 2.3 Microbiology Microbiology Results: Microbiology 08/09/24 14:08 Blood Culture - Preliminary Blood - Venous No growth after 24 hours. 08/09/24 13:47 Blood Culture - Preliminary Blood - Venous No growth after 24 hours. Assessment and Plan (1) COVID-19: Status: Acute Plan 69F PMH chronic hypoxic and hypercapnic respiratory failure due to COPD on 3 L at rest and 6 L on activity, hypertension, osteoporosis, mood disorder presented with cough and shortness of breath acute on chronic hypercapneic and chronic hypoxic respiratory failure due to copd with acute decompensation, covid, and compensation for contraction alkalosis nippv at night steroids, nebs COVID likely recurrent, alternatively could be virus vbg much improved Mood disorder Lamictal Hypertension Toprol Obesity Weight loss recommended DVT prophylaxis Lovenox Full Code reason for continued hospitalization:still sob Quality Stroke Does the patient have a stroke diagnosis?: No VTE Prior VTE?: No VTE Risk Level:: Medical - moderate - high VTE Device Contraindication: Treatment Not Indicated VTE Drug Contraindication: N/A - Med Ordered
[2024-08-11] MEDS: cefuroxime axetiL 500 MG TABLET PO ×2 (13:29→21:38)
[2024-08-11] MEDS: Vilazodone HCL 40 MG TABLET PO (13:29)
[2024-08-11] MEDS: Mirtazapine 15 MG TABLET PO (21:37)
[2024-08-11] MEDS: lamoTRIgine 100 MG TABLET 300 MG PO (21:37)
[2024-08-11] MEDS: Montelukast Sodium 10 MG TABLET PO (21:38)
[2024-08-11] MEDS: Sennosides 8.6 MG TABLET PO (21:38)
[2024-08-12 03:29] VITALS: BP 133/64; PULSE 59; RESP 16; TEMP 36.3; O2SAT 96
[2024-08-12 04:17] VITALS: PULSE 72; RESP 18; O2SAT 97
[2024-08-12] MEDS: Omeprazole 20 MG CAPSULE.DR PO (06:26)
[2024-08-12 07:39] LABS: Hematocrit 38.1 % (37.0-47.0); Hemoglobin 11.6 g/dl (12.0-16.0); Mean Corpuscular HGB Conc 30.4 g/dl (31.0-35.0); Mean Corpuscular Hemoglobin 29.1 pg (27.0-33.0); Mean Corpuscular Volume 95.5 fL (80.0-98.0); Mean Platelet Volume 9.1 fL (9.4-12.3); Platelet Count 507 X10*3/uL (160-400); Red Blood Count 3.99 X10*6/uL (4.20-5.50); Red Cell Distribution Width 15.7 % (11.0-16.0); White Blood Count 9.4 X10*3/uL (4.8-10.8)
[2024-08-12 07:46] VITALS: BP 137/65; PULSE 62; RESP 18; TEMP 36.6; O2SAT 99
[2024-08-12] MEDS: Fluticasone/Vilanterol 200/25 BLST.W.DEV 1 PUFF INHALE (07:49)
[2024-08-12 07:51] VITALS: PULSE 65; RESP 14; O2SAT 99
[2024-08-12 08:07] LABS: Anion Gap 13 (12-20); Blood Urea Nitrogen 19 mg/dL (9-16); Calcium 8.8 mg/dL (8.4-10.2); Carbon Dioxide 33 mmol/L (22-29); Chloride 100 mmol/L (96-108); Creatinine Clr Calc Pharmacy 62.9; Estimated Glomerular Filt Rate > 60; Glucose Fasting 107 mg/dL (60-99); Sodium 142 mmol/L (135-145)
--- NOTE | 2024-08-12 09:24 | P.DS_ITS ---
DS: Providers Provider Date of Service: 08/12/24 Date of admission: 08/09/24 17:05 Date of discharge: 08/12/24 Primary care physician: Yann Manzanares MD Consults: 08/09/24 17:05 Consult to Pulmonology Routine [place] [facility] [place] Reason for consultation: copd DS: Diagnosis Discharge Diagnosis (1) COVID-19: Status: Acute DS: Summary Hospital Course Hospital Course: from initial hpi: 69F PMH chronic hypoxic and hypercapnic respiratory failure due to COPD on 3 L at rest and 6 L on activity, hypertension, osteoporosis, mood disorder presented with cough and shortness of breath. [place] was [place] [facility] [place] for hospitalization for COPD exacerbation due to COVID and pneumonia. Was discharged back to her retirement on cefuroxime and Decadron. Patient reports increasing sob since discharge, with non productive cough. no fevers, no chills. in ED abg with normal ph, co2 elevated to 90 (basweline 70), bicarb 44, covid pcr positive. hospital course: Patient was admitted for acute on chronic hypercapnic and chronic hypoxic respiratory failure due to COPD with acute decompensation due to COVID and compensation from contraction alkalosis. She was treated with her noninvasive positive pressure at night given IV steroids, cefuroxime and azithromycin, and bronchodilators. Was also given a combination of normal saline and Diamox and VBG is are back to baseline with a pCO2 in the 60s and bicarb in the mid 30s. For mood disorder was continued on Lamictal. For hypertension was continue Toprol. For obesity weight loss recommended. Patient is feeling much better and will be discharged home on 5 more days of prednisone and 4 more days of cefuroxime. Time Attestation Discharge Coordination Time (in mins): 33 Quality: Safe Use of Opioids Does Pt have an Active Cancer Diagnosis on the Problem List?: No Quality: Stroke Does the patient have a stroke diagnosis?: No Physical Exam Vital Signs: Vital Signs: Last Vital Signs Temp 97.8 F 08/12/24 07:46 Pulse 65 08/12/24 07:51 Resp 14 08/12/24 07:51 BP 137/65 08/12/24 07:46 Pulse Ox 99 08/12/24 07:46 O2 Del Method Nasal Cannula 08/12/24 07:46 O2 Flow Rate 3 08/12/24 07:46 Oxygen Flow Rate 3 08/09/24 12:53 BMI result Body Mass Index 37.6 General: AO X 3, no acute distress Resp: CTA bilateral, no accessory muscles used CVS: S1,S2,RRR GI: soft, non tender, non distended Neuro: motor grossly intact, alert Psych: appropriate affect, appropriate insight DS: Data Data Completed and Pending Completed studies during hospitalization [Text1]: Procedures Assistance with Respiratory Ventilation, Less than 24 Consecutive Hours, Continuous Positive Airway Pressure (07/27/24) Labs on day of discharge: Laboratory Results - last 24 hr 08/12/24 06:54 WBC 9.4 RBC 3.99 L Hgb 11.6 L Hct 38.1 MCV 95.5 MCH 29.1 MCHC 30.4 L RDW 15.7 Plt Count 507 H MPV 9.1 L Absolute Nucleated RBC 0.000 Nucleated RBC % (auto) 0.0 Sodium 142 Potassium 4.0 Chloride 100 Carbon Dioxide 33 H Anion Gap 13 BUN 19 H Creatinine 0.85 Estim Creat Clear Calc 62.9 Estimated GFR > 60 Fasting Glucose 107 H Calcium 8.8 Preliminary micro results at discharge 08/09/24 14:08 Blood Culture - Preliminary Blood - Venous No growth after 48 hours. 08/09/24 13:47 Blood Culture - Preliminary Blood - Venous No growth after 48 hours. Discharge Plan Discharge Anticipated Discharge Date/Time: 08/12/24 09:21 Patient Disposition: Xfer Other Discharge Diagnosis: covid Referrals: Yann Manzanares MD [Primary Care Provider] - 1 Week Discharge Medications: New cefuroxime axetil 500 mg Tablet 500 mg PO Q12H Qty: 8 0RF furosemide 20 mg Tablet 20 mg PO DAILY Qty: 0 0RF Protocol: Hold for SBP< HOLD for SBP < : 90 prednisone 20 mg tablet 40 mg PO DAILY Qty: 10 0RF Continued albuterol sulfate 2.5 mg /3 mL (0.083 %) solution for nebulization 2.5 mg inhalation QID 30 Days Qty: 360 12RF acetaminophen 500 mg Tablet 1,000 mg PO Q6H PRN (Reason: Pain) aspirin 81 mg Tablet,Delayed Release (Dr/Ec) 81 mg PO DAILY alendronate [Fosamax] 70 mg Tablet 70 mg PO DOMINGUEZ lamotrigine 150 mg Tablet 300 mg PO BEDTIME lamotrigine 200 mg Tablet 200 mg PO DAILY montelukast 10 mg Tablet 10 mg PO BEDTIME albuterol sulfate [Proventil HFA] 90 mcg/actuation Hfa Aerosol Inhaler 2 puff INHALATION QID PRN (Reason: Respiratory Distress) cholecalciferol (vitamin D3) [Vitamin D3] 50 mcg (2,000 unit) Capsule 50 mcg PO DAILY mirtazapine 15 mg tablet 15 mg PO BEDTIME metoprolol succinate 50 mg Tablet Extended Release 24 Hr 50 mg PO DAILY betamethasone dipropionate 0.05 % cream 1 appl topical Q12H PRN (Reason: Dermititis ) cyclobenzaprine 5 mg tablet 5 mg PO Q8H PRN (Reason: Muscle Pain) calcium carbonate-vitamin D3 [Calcium 500 + D] 500 mg-5 mcg (200 unit) Tablet 1 tab PO BID meloxicam 15 mg tablet 15 mg PO DAILY lactulose 10 gram/15 mL solution 30 ml PO DAILY PRN (Reason: Constipation) fluocinolone acetonide oil [DermOtic Oil] 0.01 % Drops 4 drp OTIC (EARS) Q48H diclofenac sodium 1 % gel 1 g topical Q8H PRN (Reason: Pain) albuterol sulfate 2.5 mg /3 mL (0.083 %) solution for nebulization 2.5 mg inhalation Q6H PRN (Reason: Shortness Of Breath Or Wheezing) theophylline 200 mg tablet extended release 12 hr 200 mg PO BID docusate sodium 100 mg capsule 100 mg PO DAILY pantoprazole 40 mg tablet,delayed release (DR/EC) 40 mg PO DAILY@0630 Serevent Diskus 50 mcg/dose blister with device 1 inh inhalation BID fluticasone furoate-vilanterol [Breo Ellipta] 200-25 mcg/dose blister with device 1 inh INHALATION DAILY azithromycin 250 mg Tablet 250 mg PO DAILY Rx Instructions: start on 08/08/24 until 08/12/24 guaifenesin [Mucinex] 600 mg Tablet Extended Release 12hr 600 mg PO Q12H sennosides [Senokot] 8.6 mg tablet 8.6 mg PO BEDTIME aripiprazole 15 mg tablet 10 mg PO DAILY Fish Oil 300-500 mg capsule 1 cap PO BID gabapentin 100 mg capsule 100 mg PO TID (DME) nebulizers Misc See Rx Instructions .Route Rx Instructions: As directed fluticasone propionate 50 mcg/actuation spray,suspension 1 spray intranasal DAILY vilazodone 40 mg tablet 40 mg PO DAILY (DME) Oxygen Home Use Kit See Rx Instructions .Route Rx Instructions: As directed Discharge Orders: Discharge Order (Routine); Ordered 08/12/24 Ordered By: Jose Griffin Diet: Advance to usual diet Activity on Discharge: As tolerated Stand Alone Forms: Patient Portal Discharge page Print Language: Thai Care Plan Goals: recovery Health Concerns: covid Plan of Treatment: 4 more days ceftin ,5 more days prednisone Assessment: see above
--- NOTE | 2024-08-12 10:18 | MHC.CM.PN ---
Pt has been medically cleared for DC, CM spoke with pt and counseling program leader, Emani, to discuss DC. Orders needed for intermediate to be signed by MD and sent home with pt. Pt has intermediate staff that can come pick her up this afternoon.
[2024-08-12 11:01] VITALS: BP 118/57; PULSE 67; RESP 18; TEMP 36.3; O2SAT 98
[2024-08-12] MEDS: Enoxaparin Sodium 40 MG/0.4 ML SYRINGE SUBCUT (11:46)
[2024-08-12] MEDS: ARIPiprazole 10 MG TABLET PO (11:46)
[2024-08-12] MEDS: lamoTRIgine 100 MG TABLET 200 MG PO (11:47)
[2024-08-12] MEDS: Metoprolol Succinate ER 50 MG TAB.ER.24H PO (11:47)
[2024-08-12] MEDS: Gabapentin 100 MG CAPSULE PO (11:47)
[2024-08-12] MEDS: Cholecalciferol (Vitamin D3) 25 MCG TABLET 50 MCG PO (11:48)
[2024-08-12] MEDS: Furosemide 20 MG TABLET PO (11:48)
[2024-08-12] MEDS: Vilazodone HCL 40 MG TABLET PO (11:48)
[2024-08-12] MEDS: Theophylline Anhydrous ER 400 MG TAB.ER.24H 200 MG PO (11:49)
[2024-08-12] MEDS: Azithromycin 250 MG TABLET PO (11:49)
[2024-08-12] MEDS: cefuroxime axetiL 500 MG TABLET PO (11:49)
[2024-08-12] MEDS: Docusate Sodium 100 MG CAPSULE PO (11:51)
[2024-08-12] MEDS: guaiFENesin LA 600 MG TAB.ER.12H PO (11:51)
[2024-08-12] MEDS: Aspirin Enteric Coated 81 MG TABLET.DR PO (11:51)
[2024-08-12] MEDS: methylPREDNISolone Sod Succ 40 MG/ML VIAL IVPUSH (11:52)
[2024-08-12] MEDS: 0.9 % Sodium Chloride Flush 3 ML SYRINGE IVFLUSH (11:54)
== END 2024-08-12 13:39 | disposition other institution (70) | DRG 190 ==
LOC: HO.ED 16:54 → HO.EDOVER 17:10 → HO.IMC 19:24
PROVIDERS: Physician Assistant; Admitting Provider Internal Medicine; Emergency Provider Emergency Medicine; PCP Student in an Organized Health Care Education/Training Program; Visit Provider Internal Medicine
DX: J44.1 Chronic obstructive pulmonary disease with (acute) exacerbation (principal); J96.22 Acute and chronic respiratory failure with hypercapnia; U07.1 COVID-19; J96.11 Chronic respiratory failure with hypoxia; E87.3 Alkalosis; A49.9 Bacterial infection, unspecified; F39 Unspecified mood [affective] disorder; I11.9 Hypertensive heart disease without heart failure; E66.9 Obesity, unspecified; Z71.3 Dietary counseling and surveillance; Z68.37 Body mass index [BMI] 37.0-37.9, adult; Z99.81 Dependence on supplemental oxygen; Z79.82 Long term (current) use of aspirin; Z79.51 Long term (current) use of inhaled steroids; Z79.899 Other long term (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 therapy
CPT/HCPCS: 36415; 71045; 80048; 80076; 81001; 82803; 83605; 83735; 83880; 84145; 84484; 85025; 85027; 87040; 87633; 93005; 94640; 94660; 99212; 99285; J1120; J1650; J2919

== ENCOUNTER → 2024-08-09 17:05 | Outpatient (BNV) | payer MEDICARE, MEDICAID, SELFPAY | PROVIDERS: Admitting Provider Internal Medicine; Emergency Provider Emergency Medicine; PCP Student in an Organized Health Care Education/Training Program; Visit Provider Internal Medicine Pulmonary Disease | DX: U07.1 COVID-19 (principal); J44.1 Chronic obstructive pulmonary disease with (acute) exacerbation; J96.21 Acute and chronic respiratory failure with hypoxia | CPT/HCPCS: 99232 ==

== ENCOUNTER → 2024-08-09 17:05 | Outpatient (BNV) | payer MEDICARE, MEDICAID, SELFPAY | PROVIDERS: Admitting Provider Internal Medicine; Emergency Provider Emergency Medicine; PCP Student in an Organized Health Care Education/Training Program; Visit Provider Internal Medicine | DX: U07.1 COVID-19 (principal); J96.22 Acute and chronic respiratory failure with hypercapnia; J96.11 Chronic respiratory failure with hypoxia | CPT/HCPCS: 99223; 99232; 99239 ==

== ENCOUNTER 2024-08-16 10:24 | Emergency (ER) | payer MEDICARE, MEDICAID, SELFPAY ==
[2024-08-16] VITALS (9 sets, daily range): BP systolic 111–139; BP diastolic 49–73; PULSE 68–91; RESP 16–26; TEMP 36.7–37.6; O2SAT 92–98; BMI 38.3
--- NOTE | ~2024-08-16 | XR_ITS ---
EXAMINATION: XR CHEST CLINICAL INFORMATION: Shortness of breath COMPARISON: Chest radiograph 08/09/2024 TECHNIQUE: Frontal view of the chest was obtained. FINDINGS: Coarse interstitial lung markings are again noted consistent with underlying centrilobular emphysema. Pulmonary nodule is again seen in the left upper lobe. Similar blunting of the left lateral costophrenic sulcus corresponds to epicardial fat pad. Similar pleural parenchymal scarring at the left lung base which appears unchanged. Streaky bibasilar opacities. No significant pleural effusions. No pneumothorax. The cardiac mediastinal silhouette is unchanged. Aortic calcifications. Degenerative changes of the thoracic spine. XR/XR chest 1V IMPRESSION: 1. Streaky bibasilar opacities favoring atelectasis. 2. Emphysema. 3. Similar left upper lobe nodule. Electronically signed by: João Whitfield MD 08/16/2024 03:50 PM EDT
--- NOTE | 2024-08-16 10:48 | ED.SOB ---
HPI - SOB/Dyspnea General Chief Complaint: Dyspnea Stated Complaint: O2 SAT DROP @ [facility],NOW 97%/FEELS FINE ER EMS Time Seen by Provider: 08/16/24 10:25 Source: patient, EMS, RN notes reviewed and old records reviewed Mode of arrival: EMS History of Present Illness ED Provider: Ina Gonzalez PA-C HPI Narrative: 69-year-old female with a past medical history of chronic hypoxic and hypercapnic respiratory failure on COPD 3L NC at rest and 6L on exertion, HTN, osteoporosis, mood disorder, presenting to the ED via EMS from [place] [facility] for episode hypoxia in the 70's noted after coughing fit & patient self removed O2. Patient was recently discharged from [facility] [place] on 08/12/2024 due to COVID-19 and acute on chronic hypercapnic respiratory failure & 07/31/2024 similar symptoms, discharged on prednisone and cefuroxime. Reports symptomatic improvement at present. Does admit to mild SOB, and productive cough. Denies pedal edema, fever/chills, new or worsening chest pain, sick contacts. Related Data Home Medications ?Medication ?Instructions ?Recorded ?Confirmed acetaminophen 500 mg tablet 1,000 mg PO Q6H PRN Pain 02/09/21 08/09/24 albuterol sulfate 90 mcg/actuation 2 puff inhalation QID PRN 02/09/21 08/09/24 aerosol inhaler (Proventil HFA) Respiratory Distress alendronate 70 mg tablet (Fosamax) 70 mg PO DOMINGUEZ 02/09/21 08/09/24 aspirin 81 mg tablet,delayed 81 mg PO DAILY 02/09/21 08/09/24 release cholecalciferol (vitamin D3) 50 50 mcg PO DAILY 02/09/21 08/09/24 mcg (2,000 unit) capsule (Vitamin D3) lamotrigine 150 mg tablet 300 mg PO BEDTIME 02/09/21 08/09/24 lamotrigine 200 mg tablet 200 mg PO DAILY 02/09/21 08/09/24 montelukast 10 mg tablet 10 mg PO BEDTIME 02/09/21 08/09/24 mirtazapine 15 mg tablet 15 mg PO BEDTIME 09/10/21 08/09/24 sennosides 8.6 mg tablet (Senokot) 8.6 mg PO BEDTIME 09/10/21 08/09/24 metoprolol succinate 50 mg 50 mg PO DAILY 11/18/21 08/09/24 tablet,extended release 24 hr aripiprazole 15 mg tablet 10 mg PO DAILY 11/02/22 08/09/24 omega-3 fatty acids-fish oil 300 1 cap PO BID 11/02/22 08/09/24 mg-500 mg capsule (Fish Oil) Oxygen Home Use 04/15/23 05/17/24 fluticasone propionate 50 1 spray intranasal DAILY Allergies 04/15/23 08/09/24 mcg/actuation nasal spray,suspension nebulizers 04/15/23 05/17/24 vilazodone 40 mg tablet 40 mg PO DAILY 04/15/23 08/09/24 gabapentin 100 mg capsule 100 mg PO TID 09/20/23 08/09/24 fluticasone furoate 200 1 inh inhalation DAILY SOB 06/21/24 08/09/24 mcg-vilanterol 25 mcg/dose inhalation powder (Breo Ellipta) pantoprazole 40 mg tablet,delayed 40 mg PO DAILY@0630 06/21/24 08/09/24 release salmeterol 50 mcg/dose blister 1 inh inhalation BID SOB 06/21/24 08/09/24 powder for inhalation (Serevent Diskus) albuterol sulfate 2.5 mg/3 mL 2.5 mg inhalation Q6H PRN 07/27/24 08/09/24 (0.083 %) solution for nebulization Shortness Of Breath Or Wheezing betamethasone dipropionate 0.05 % 1 appl topical Q12H PRN Dermititis 07/27/24 08/09/24 topical cream calcium carbonate 500 mg-vitamin 1 tab PO BID 07/27/24 08/09/24 D3 5 mcg (200 unit) tablet (Calcium 500 + D) cyclobenzaprine 5 mg tablet 5 mg PO Q8H PRN Muscle Pain 07/27/24 08/09/24 diclofenac sodium 1 % topical gel 1 g topical Q8H PRN Pain 07/27/24 08/09/24 docusate sodium 100 mg capsule 100 mg PO DAILY Constipation 07/27/24 08/09/24 fluocinolone acetonide oil 0.01 % 4 drp otic (ears) Q48H 07/27/24 08/09/24 ear drops (DermOtic Oil) lactulose 10 gram/15 mL oral 30 ml PO DAILY PRN Constipation 07/27/24 08/09/24 solution meloxicam 15 mg tablet 15 mg PO DAILY 07/27/24 08/09/24 theophylline 200 mg 200 mg PO BID 07/27/24 08/09/24 tablet,extended release,12 hr azithromycin 250 mg tablet 250 mg PO DAILY 08/09/24 08/09/24 guaifenesin 600 mg tablet, 600 mg PO Q12H 08/09/24 08/09/24 extended release 12 hr (Mucinex) Previous Rx's ?Medication ?Instructions ?Recorded albuterol sulfate 2.5 mg/3 mL 2.5 mg (3 mL) inhalation QID 30 07/09/24 (0.083 %) solution for nebulization days #360 mL cefuroxime axetil 500 mg tablet 500 mg PO BID #8 tabs 08/12/24 furosemide 20 mg tablet 20 mg PO DAILY #90 tabs 08/12/24 prednisone 20 mg tablet 40 mg (2 x 20 mg) PO DAILY #10 tabs 08/12/24 Allergies Allergy/AdvReac Type Severity Reaction Status Date / Time codeine [Codeine] Allergy Intermediate RESTLESS/RA Verified 08/16/24 10:43 SH haloperidol [Haldol] Allergy Intermediate Palpitation Verified 08/09/24 13:01 s Sulfa (Sulfonamide Allergy Intermediate HIVES Verified 08/09/24 13:01 Antibiotics) Review of Systems Review of Systems: Yes all other systems are reviewed and are negative Constitutional: Constitutional: Reports as per [facility] Past Medical History Attestation statement: The following information was validated with the patient. Source: old records reviewed Medical History Rib fractures Pulmonary nodule Tubular adenoma of colon (~2006) Osteopenia (~2012) Bronchopneumonia Chest pain Chronic respiratory alkalosis ILD (interstitial lung disease) CO2 retention Acute on chronic respiratory failure with hypoxia and hypercapnia Bipolar depression Eczema Limb swelling Insomnia Bronchitis Vasomotor rhinitis COPD (chronic obstructive pulmonary disease) Chronic respiratory failure Fall Acute metabolic encephalopathy Acute and chronic respiratory failure with hypercapnia Surgical History History of carpal tunnel surgery (~2000) History of ventral hernia repair (~2003) History of left inguinal hernia repair (~1995) History of tracheostomy (~2016) History of cataract surgery (~2018) History of colonoscopy Family History Family History Other Hypertension Social History Social History Household Members: None and Other Household Members Other:: [facility]: [facility] Are you a primary career technical supervisor to a significant other at home: No Do you presently have visiting nurse 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) Alcohol intake: unknown Patient Tobacco Use Status: Former Tobacco user Tobacco use type: Cigarette Years Smoked: 20+ years Smoked in Last 30 Days: No e-Cigarette/Vaping Use: Never Used Second Hand Smoke Exposure: No Use of substances other than those prescribed or required for medical reasons: No Advance Directives: Yes Advance Directives on File: Yes Advance Directives Date on File: 11/30/21 Do you have a plan to hurt others: No Plan service: No Current occupational status: disabled Physical Exam Vital Signs: Vital Signs: Last Vital Signs Temp 99.7 F 08/16/24 11:02 Pulse 74 08/16/24 14:55 Resp 20 08/16/24 14:55 BP 124/49 L 08/16/24 14:55 Pulse Ox 95 08/16/24 14:55 O2 Del Method Nasal Cannula 08/16/24 14:55 O2 Flow Rate 3 08/16/24 14:55 Oxygen Flow Rate 3 08/16/24 10:39 BMI result Body Mass Index 38.3 Const: General: cooperative, healthy appearing and no acute distress Orientation/consciousness: patient oriented x3 Limitations: no limitations HEENT: Head: Yes normal to inspection and Yes atraumatic Ears: hearing grossly normal bilaterally General nose exam: Normal external nose present Face and sinus: Yes normal facial exam Eyes: General: appearance normal, both eyes and all related structures EOM: EOMs intact bilaterally Neck: Neck: Yes normal visual inspection and Yes no meningeal signs Resp: Effort & Inspection: normal respiratory effort and no respiratory distress Auscultation: crackles bilateral at the base and diminished lung sounds diffuse Cardio: Rate: regular rate Heart sounds: S1 normal heart sound present and S2 normal heart sound present GI: Inspection: Yes normal to inspection Palpation (GI): Soft to palpation, nontender, no guarding and not rigid Skin: Rashes: no rashes Wounds: no wounds Neuro: General: patient oriented x3, tone normal and no meningeal signs Cranial nerves: Yes CN's II-XII intact bilaterally Gait exam (Neuro): Normal gait present Extrem: General: Yes normal to inspection and Yes pedal edema (1+ bilaterally) Course Course Course Narrative: -1249--no leukocytosis. H&H at patient's baseline. Carbon dioxide acute on chronically elevated, near patient's baseline >> VBG compensated -troponin 7.3 > will obtain 3 hour repeat -1300--on re-evaluation patient reports symptomatic improvement, and expiratory residual wheeze still appreciated. Satting 94% on baseline 3L NC will give additional DuoNeb. Patient currently on prednisone, cefuroxime, and Lasix outpatient 1556--XR chest 1V IMPRESSION: 1. Streaky bibasilar opacities favoring atelectasis. 2. Emphysema. 3. Similar left upper lobe nodule. > patient already on antibiotics and prednisone outpatient from recent discharge. Discussed importance of compliance with BiPAP at night/using BiPAP during day for naps, etc (due to suspected noncompliance) and close follow-up with PCP/pulmonology. Patient has maintained saturation since ED arrival on baseline O2. Patient is agreeable and feels safe for discharge back to [place] [facility] at this time Results discussed with patient including worrisome signs and symptoms and strict return precautions, and when to return to the emergency department. They verbalized understanding and feel safe for discharge at this time. Medications Administered Discontinued Medications Generic Name Dose Route Start Last Admin Trade Name Freq PRN Reason Stop Dose Admin Albuterol/Ipratropium 3 ml 08/16/24 11:22 08/16/24 11:24 Albuterol/Iprat 2.5/0.5mg 3 Ml Ampul.Neb INHALE 08/16/24 11:23 3 ml ONCE ONE Administration Medical Decision Making Medical Decision Making MDM Narrative: 69-year-old female with a past medical history of chronic hypoxic and hypercapnic respiratory failure on COPD 3L NC at rest and 6L on exertion, HTN, osteoporosis, mood disorder, presenting to the ED via EMS from [place] [facility] for episode hypoxia in the 's noted after coughing fit & patient self removed O2. On exam patient mildly tachypneic, low-grade temp 99.7 degrees, satting 93% on baseline O2, diminished lung sounds throughout with bibasilar crackles. Concern for continued COVID-19/pneumonia with hypoxia secondary to coughing fit/soft removing O2 vs acute COPD exacerbation vs viral illness vs worsening pneumonia. Lower suspicion for ACS/PE or CHF at this time. Unlikely dissection or severe sepsis Plan: EKG, labs, CXR, viral studies, ED bronchodilator protocol. Please refer to course for remaining clinical decision making, interpretation of labs/imaging results, and discussions with consultants and/or family members. Differential Diagnosis Differential Diagnoses: The differential diagnosis associated with the presentation includes As above Admission/Observation Consideration of admission/observation: Escalation of care including admission/observation considered Lab Data MDM Lab Attestation statement: I reviewed the patient's lab results. 08/16/24 11:26 08/16/24 11:26 Labs: Lab Results 08/16/24 08/16/24 08/16/24 Range/Units 11:26 11:34 14:37 WBC 8.9 (4.8-10.8) X10*3/uL RBC 3.55 L (4.20-5.50) X10*6/uL Hgb 10.6 L (12.0-16.0) g/dl Hct 34.9 L (37.0-47.0) % MCV 98.3 H (80.0-98.0) fL MCH 29.9 (27.0-33.0) pg MCHC 30.4 L (31.0-35.0) g/dl RDW 15.8 (11.0-16.0) % Plt Count 384 (160-400) X10*3/uL MPV 8.8 L (9.4-12.3) fL Immature Gran % (Auto) 1.6 H (0.0-0.4) % Neut % (Auto) 88.4 H (45-73) % Lymph % (Auto) 4.4 L (20-40) % Blanco % (Auto) 4.8 (2-11) % Eos % (Auto) 0.5 (0-4) % Baso % (Auto) 0.3 (0-2) % Lymph # (Auto) 0.4 L (1.2-4.9) X10*3/uL Blanco # (Auto) 0.4 (0.1-1.2) X10*3/uL Eos # (Auto) 0.0 (0.0-0.4) X10*3/uL Baso # (Auto) 0.0 (0.0-0.2) X10*3/uL Abs Immat Gran (auto) 0.14 H (0.00-0.03) X10*3/uL Absolute Neuts (auto) 7.9 (2.0-8.3) x10*3/uL Absolute Nucleated RBC 0.000 (0.0-0.012) X10*3/uL Nucleated RBC % (auto) 0.0 (0.0-0.2) /100WBC PT 11.3 (10.9-12.4) SEC INR 1.0 (0.9-1.1) VBG pH 7.45 H (7.32-7.43) VBG pCO2 75 mmHg VBG pO2 110 mmHg VBG HCO3 53 H (22-26) mmol/L VBG O2 Saturation 100.0 % VBG Base Excess 25.3 mmol/L Sodium 143 (135-145) mmol/L Potassium 4.4 (3.3-5.1) mmol/L Chloride 92 L (96-108) mmol/L Carbon Dioxide 49 H* D (22-29) mmol/L Anion Gap 6 L (12-20) BUN 16 (9-16) mg/dL Creatinine 0.80 (0.5-1.4) mg/dL Estim Creat Clear Calc 67.6 Estimated GFR > 60 Random Glucose 139 H (60-115) mg/dL Lactic Acid 0.6 (0.5-2.0) mmol/L Calcium 9.1 (8.4-10.2) mg/dL Magnesium 1.9 (1.6-2.6) mg/dL Total Bilirubin 0.3 (0.0-1.0) mg/dL Direct Bilirubin 0.1 (0.0-0.5) mg/dL AST 16 (5-31) U/L ALT 17 (0-31) U/L Alkaline Phosphatase 71 (39-117) U/L Troponin I High Sens 7.3 4.9 (<3.5-17.0) ng/L B-Natriuretic Peptide 183 H (<100) pg/mL Total Protein 6.7 (6.5-8.0) g/dL Albumin 4.0 (3.5-5.0) g/dL Independent Interpretation I performed an independent interpretation of an: EKG and Plain X-Ray Radiology Impression Discussion of test interpretation with radiology: I have reviewed the radiologist's reading. Independent Historian Clinical information obtained from an independent historian. History obtained from or confirmed by: EMS External Record Review External record reviewed: Inpatient record, Office record, Outpatient record, Prior outpatient labs, Prior outpatient radiology, Primary care record and Outside ED record Tests considered The following testing was considered but not selected: As above Chronic Conditions Patient?s care impacted by: Hypertension and Other (COPD) Social Determinants Patient?s care significantly limited by Social Determinants of Health including: Problems related to primary support group and Unemployment Discharge Plan Discharge Clinical Impression: Chronic hypoxic respiratory failure Patient Disposition: Still a Patient Instructions: Chronic Respiratory Failure (DC) Additional Instructions: PLEASE BE COMPLIANT WITH HER BIPAP AT NIGHT, WELL NAPS DURING THE DAY Please wear your oxygen, do not take off Continue previously prescribed medications including steroids and nebs and antibiotics If symptoms persist or worsen, you have hypoxia again, increased or worsening shortness breath or chest pain return to the ED immediately Prescriptions: No Action albuterol sulfate 2.5 mg /3 mL (0.083 %) solution for nebulization 2.5 mg inhalation QID 30 Days Qty: 360 12RF acetaminophen 500 mg Tablet 1,000 mg PO Q6H PRN (Reason: Pain) aspirin 81 mg Tablet,Delayed Release (Dr/Ec) 81 mg PO DAILY alendronate [Fosamax] 70 mg Tablet 70 mg PO DOMINGUEZ lamotrigine 150 mg Tablet 300 mg PO BEDTIME lamotrigine 200 mg Tablet 200 mg PO DAILY montelukast 10 mg Tablet 10 mg PO BEDTIME albuterol sulfate [Proventil HFA] 90 mcg/actuation Hfa Aerosol Inhaler 2 puff INHALATION QID PRN (Reason: Respiratory Distress) cholecalciferol (vitamin D3) [Vitamin D3] 50 mcg (2,000 unit) Capsule 50 mcg PO DAILY mirtazapine 15 mg tablet 15 mg PO BEDTIME metoprolol succinate 50 mg Tablet Extended Release 24 Hr 50 mg PO DAILY betamethasone dipropionate 0.05 % cream 1 appl topical Q12H PRN (Reason: Dermititis ) cyclobenzaprine 5 mg tablet 5 mg PO Q8H PRN (Reason: Muscle Pain) calcium carbonate-vitamin D3 [Calcium 500 + D] 500 mg-5 mcg (200 unit) Tablet 1 tab PO BID meloxicam 15 mg tablet 15 mg PO DAILY lactulose 10 gram/15 mL solution 30 ml PO DAILY PRN (Reason: Constipation) fluocinolone acetonide oil [DermOtic Oil] 0.01 % Drops 4 drp OTIC (EARS) Q48H diclofenac sodium 1 % gel 1 g topical Q8H PRN (Reason: Pain) albuterol sulfate 2.5 mg /3 mL (0.083 %) solution for nebulization 2.5 mg inhalation Q6H PRN (Reason: Shortness Of Breath Or Wheezing) theophylline 200 mg tablet extended release 12 hr 200 mg PO BID docusate sodium 100 mg capsule 100 mg PO DAILY pantoprazole 40 mg tablet,delayed release (DR/EC) 40 mg PO DAILY@0630 Serevent Diskus 50 mcg/dose blister with device 1 inh inhalation BID fluticasone furoate-vilanterol [Breo Ellipta] 200-25 mcg/dose blister with device 1 inh INHALATION DAILY azithromycin 250 mg Tablet 250 mg PO DAILY Rx Instructions: start on 08/08/24 until 08/12/24 guaifenesin [Mucinex] 600 mg Tablet Extended Release 12hr 600 mg PO Q12H prednisone 20 mg tablet 40 mg PO DAILY Qty: 10 0RF cefuroxime axetil 500 mg tablet 500 mg PO BID Qty: 8 0RF furosemide 20 mg tablet 20 mg PO DAILY Qty: 90 0RF sennosides [Senokot] 8.6 mg tablet 8.6 mg PO BEDTIME aripiprazole 15 mg tablet 10 mg PO DAILY Fish Oil 300-500 mg capsule 1 cap PO BID gabapentin 100 mg capsule 100 mg PO TID (DME) nebulizers [facility] See Rx Instructions .Route Rx Instructions: As directed fluticasone propionate 50 mcg/actuation spray,suspension 1 spray intranasal DAILY vilazodone 40 mg tablet 40 mg PO DAILY (DME) Oxygen Home Use Kit See Rx Instructions .Route Rx Instructions: As directed Referrals: [facility] [place] Pulmonology Services [Provider Group] Yann Manzanares MD [Primary Care Provider] - 2 days Print Language: Welsh
--- NOTE | 2024-08-16 11:03 | ECG_ITS ---
Test Reason : SOB Blood Pressure : / mmHG Vent. Rate : 083 BPM Atrial Rate : 083 BPM P-R Int : 132 ms QRS Dur : 078 ms QT Int : 342 ms P-R-T Axes : 059 068 050 degrees QTc Int : 401 ms Normal sinus rhythm Normal ECG When compared with ECG of 09-AUG-2024 13:52, No significant change was found Referred By: Ina Gonzalez Electronically Signed By:SHANE NOVA
[2024-08-16] MEDS: Albuterol/Iprat 2.5/0.5MG 3 ML AMPUL.NEB INHALE ×2 (11:24→16:48)
[2024-08-16 11:36] LABS: MANUAL DIFF FLAG NO
[2024-08-16 11:37] LABS: Venous Blood Gas Refer to POC result
[2024-08-16 11:37] LABS: VBG Base Excess 25.3 mmol/L; VBG HCO3 53 mmol/L (22-26); VBG pCO2 75 mmHg; VBG pH 7.45 (7.32-7.43); VBG pO2 110 mmHg
[2024-08-16 11:39] LABS: Basophils Percent Auto 0.3 % (0-2); Eosinophils Percent Auto 0.5 % (0-4); Hematocrit 34.9 % (37.0-47.0); Hemoglobin 10.6 g/dl (12.0-16.0); Imm Gran Abs Auto 0.14 X10*3/uL (0.00-0.03); Imm Gran Pct Auto 1.6 % (0.0-0.4); Lymphocytes Absolute Auto 0.4 X10*3/uL (1.2-4.9); Lymphocytes Percent Auto 4.4 % (20-40); Mean Corpuscular HGB Conc 30.4 g/dl (31.0-35.0); Mean Corpuscular Hemoglobin 29.9 pg (27.0-33.0); Mean Corpuscular Volume 98.3 fL (80.0-98.0); Mean Platelet Volume 8.8 fL (9.4-12.3); Monocytes Absolute Auto 0.4 X10*3/uL (0.1-1.2); Monocytes Percent Auto 4.8 % (2-11); Neutrophils Absolute Auto 7.9 x10*3/uL (2.0-8.3); Neutrophils Percent Auto 88.4 % (45-73); Platelet Count 384 X10*3/uL (160-400); Red Blood Count 3.55 X10*6/uL (4.20-5.50); Red Cell Distribution Width 15.8 % (11.0-16.0); White Blood Count 8.9 X10*3/uL (4.8-10.8)
[2024-08-16 11:43] LABS: Prothrombin Time 11.3 SEC (10.9-12.4)
[2024-08-16 11:50] LABS: Lactic Acid 0.6 mmol/L (0.5-2.0)
[2024-08-16 11:59] LABS: B Type Natriuretic Peptide 183 pg/mL (<100)
[2024-08-16 12:00] LABS: Alanine Aminotransferase 17 U/L (0-31); Alkaline Phosphatase 71 U/L (39-117); Anion Gap 6 (12-20); Aspartate Amino Transferase 16 U/L (5-31); Bilirubin Direct 0.1 mg/dL (0.0-0.5); Bilirubin Total 0.3 mg/dL (0.0-1.0); Blood Urea Nitrogen 16 mg/dL (9-16); Calcium 9.1 mg/dL (8.4-10.2); Carbon Dioxide 49 mmol/L (22-29); Chloride 92 mmol/L (96-108); Creatinine Clr Calc Pharmacy 67.6; Estimated Glomerular Filt Rate > 60; Glucose Random 139 mg/dL (60-115); Magnesium 1.9 mg/dL (1.6-2.6); Potassium 4.4 mmol/L (3.3-5.1); Sodium 143 mmol/L (135-145); Total Protein 6.7 g/dL (6.5-8.0)
[2024-08-16 12:01] LABS: Troponin-I High Sensitivity 7.3 ng/L (<3.5-17.0)
[2024-08-16 15:17] LABS: Troponin-I High Sensitivity 4.9 ng/L (<3.5-17.0)
--- NOTE | 2024-08-16 17:35 | PC.NURSE ---
Pt transfer paperwork, personnel and payroll technician for Pt at [facility] is the Compressor Assembler Emani @ [phone]. Call placed to Emani to give report on Pt care and discharge. No answer however a VM was left for Emani to call this RN.
== END 2024-08-16 18:11 | disposition still patient (30) ==
PROVIDERS: Physician Assistant; Emergency Provider Emergency Medicine; PCP Student in an Organized Health Care Education/Training Program
DX: J96.11 Chronic respiratory failure with hypoxia (principal); Z99.81 Dependence on supplemental oxygen; J44.9 Chronic obstructive pulmonary disease, unspecified; R06.02 Shortness of breath; Z79.82 Long term (current) use of aspirin; Z79.899 Other long term (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 therapy; Z87.891 Personal history of nicotine dependence
CPT/HCPCS: 36415; 71045; 80048; 80076; 82803; 83605; 83735; 83880; 84484; 85025; 85610; 87040; 93005; 99284; 99285

== ENCOUNTER 2024-08-20 00:03 | Inpatient (IN) | payer MEDICARE, MEDICAID, SELFPAY ==
[2024-08-20] VITALS (15 sets, daily range): BP systolic 138–203; BP diastolic 52–88; PULSE 67–99; RESP 16–24; TEMP 36.7; O2SAT 80–98; BMI 39.9; BMI 37.7
--- NOTE | ~2024-08-20 | XR_ITS ---
EXAMINATION: XR CHEST CLINICAL INFORMATION: Shortness of breath COMPARISON: 08/16/2024 TECHNIQUE: Frontal view of the chest was obtained. FINDINGS: Pulmonary emphysema. Bibasilar pleural parenchymal scarring and atelectasis. No focal consolidation. Perihilar bronchial wall thickening suggesting an element of chronic bronchitis.. No pneumothorax. Cardiac and mediastinal contours are unchanged. Degenerative spondylosis in the thoracic spine. No acute osseous findings. XR/XR chest 1V IMPRESSION: Pulmonary emphysema. No acute pulmonary findings. Electronically signed by: Bipin Griggs MD 08/20/2024 01:00 AM EDT
--- NOTE | 2024-08-20 00:06 | ED_ITS ---
HPI - SOB/Dyspnea General Chief Complaint: Dyspnea Stated Complaint: COPD EXACERBATION Time Seen by Provider: 08/20/24 00:06 History of Present Illness ED Provider: pan CHRISTOPHER Narrative: Patient with frequent hospitalization for COPD with hypercapnic respiratory failure does discharge on 08/12 for similar presentation comes here for increased shortness of breath saturating 50% at room air at long term. Patient does have a history of hypercapnic respiratory failure due to COPD on 3 L oxygen at rest and 6 L on activity, hypertension, osteoporosis, mood disorder was COVID positive on 07/31 discharged home on 08/12 on prednisone and cefuroxime patient is seen here in the ER on 08/16 for similar presentation not using BiPAP at night which she is supposed to use but this time patient's said that she been using that and was feeling short of breath even after using the BiPAP Related Data Home Medications ?Medication ?Instructions ?Recorded ?Confirmed acetaminophen 500 mg tablet 1,000 mg PO Q6H PRN Pain 02/09/21 08/09/24 albuterol sulfate 90 mcg/actuation 2 puff inhalation QID PRN 02/09/21 08/09/24 aerosol inhaler (Proventil HFA) Respiratory Distress alendronate 70 mg tablet (Fosamax) 70 mg PO DOMINGUEZ 02/09/21 08/09/24 aspirin 81 mg tablet,delayed 81 mg PO DAILY 02/09/21 08/09/24 release cholecalciferol (vitamin D3) 50 50 mcg PO DAILY 02/09/21 08/09/24 mcg (2,000 unit) capsule (Vitamin D3) lamotrigine 150 mg tablet 300 mg PO BEDTIME 02/09/21 08/09/24 lamotrigine 200 mg tablet 200 mg PO DAILY 02/09/21 08/09/24 montelukast 10 mg tablet 10 mg PO BEDTIME 02/09/21 08/09/24 mirtazapine 15 mg tablet 15 mg PO BEDTIME 09/10/21 08/09/24 sennosides 8.6 mg tablet (Senokot) 8.6 mg PO BEDTIME 09/10/21 08/09/24 metoprolol succinate 50 mg 50 mg PO DAILY 11/18/21 08/09/24 tablet,extended release 24 hr aripiprazole 15 mg tablet 10 mg PO DAILY 11/02/22 08/09/24 omega-3 fatty acids-fish oil 300 1 cap PO BID 11/02/22 08/09/24 mg-500 mg capsule (Fish Oil) Oxygen Home Use 04/15/23 05/17/24 fluticasone propionate 50 1 spray intranasal DAILY Allergies 04/15/23 08/09/24 mcg/actuation nasal spray,suspension nebulizers 04/15/23 05/17/24 vilazodone 40 mg tablet 40 mg PO DAILY 04/15/23 08/09/24 gabapentin 100 mg capsule 100 mg PO TID 09/20/23 08/09/24 fluticasone furoate 200 1 inh inhalation DAILY SOB 06/21/24 08/09/24 mcg-vilanterol 25 mcg/dose inhalation powder (Breo Ellipta) pantoprazole 40 mg tablet,delayed 40 mg PO DAILY@0630 06/21/24 08/09/24 release salmeterol 50 mcg/dose blister 1 inh inhalation BID SOB 06/21/24 08/09/24 powder for inhalation (Serevent Diskus) albuterol sulfate 2.5 mg/3 mL 2.5 mg inhalation Q6H PRN 07/27/24 08/09/24 (0.083 %) solution for nebulization Shortness Of Breath Or Wheezing betamethasone dipropionate 0.05 % 1 appl topical Q12H PRN Dermititis 07/27/24 08/09/24 topical cream calcium carbonate 500 mg-vitamin 1 tab PO BID 07/27/24 08/09/24 D3 5 mcg (200 unit) tablet (Calcium 500 + D) cyclobenzaprine 5 mg tablet 5 mg PO Q8H PRN Muscle Pain 07/27/24 08/09/24 diclofenac sodium 1 % topical gel 1 g topical Q8H PRN Pain 07/27/24 08/09/24 docusate sodium 100 mg capsule 100 mg PO DAILY Constipation 07/27/24 08/09/24 fluocinolone acetonide oil 0.01 % 4 drp otic (ears) Q48H 07/27/24 08/09/24 ear drops (DermOtic Oil) lactulose 10 gram/15 mL oral 30 ml PO DAILY PRN Constipation 07/27/24 08/09/24 solution meloxicam 15 mg tablet 15 mg PO DAILY 07/27/24 08/09/24 theophylline 200 mg 200 mg PO BID 07/27/24 08/09/24 tablet,extended release,12 hr azithromycin 250 mg tablet 250 mg PO DAILY 08/09/24 08/09/24 guaifenesin 600 mg tablet, 600 mg PO Q12H 08/09/24 08/09/24 extended release 12 hr (Mucinex) Previous Rx's ?Medication ?Instructions ?Recorded albuterol sulfate 2.5 mg/3 mL 2.5 mg (3 mL) inhalation QID 30 07/09/24 (0.083 %) solution for nebulization days #360 mL cefuroxime axetil 500 mg tablet 500 mg PO BID #8 tabs 08/12/24 furosemide 20 mg tablet 20 mg PO DAILY #90 tabs 08/12/24 prednisone 20 mg tablet 40 mg (2 x 20 mg) PO DAILY #10 tabs 08/12/24 Allergies Allergy/AdvReac Type Severity Reaction Status Date / Time codeine [Codeine] Allergy Intermediate RESTLESS/RA Verified 08/20/24 00:20 SH haloperidol [Haldol] Allergy Intermediate Palpitation Verified 08/20/24 00:20 s Sulfa (Sulfonamide Allergy Intermediate HIVES Verified 08/20/24 00:20 Antibiotics) Review of Systems 2 Review of Systems: Yes all other systems are reviewed and are negative PMFSH Past Medical History Medical History Rib fractures Pulmonary nodule Tubular adenoma of colon (~2006) Osteopenia (~2012) Bronchopneumonia Chest pain Chronic respiratory alkalosis ILD (interstitial lung disease) CO2 retention Acute on chronic respiratory failure with hypoxia and hypercapnia Bipolar depression Eczema Limb swelling Insomnia Bronchitis Vasomotor rhinitis COPD (chronic obstructive pulmonary disease) Chronic respiratory failure Fall Acute metabolic encephalopathy Acute and chronic respiratory failure with hypercapnia Surgical History History of carpal tunnel surgery (~2000) History of ventral hernia repair (~2003) History of left inguinal hernia repair (~1995) History of tracheostomy (~2016) History of cataract surgery (~2018) History of colonoscopy Family History Family History Other Hypertension Social History Social History Household Members: None and Other Household Members Other:: prison Housing: Other Housing Other:: prison [facility] Are you a primary resident care supervisor to a significant other at home: No Do you presently have visiting nurse 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) Alcohol intake: unknown Patient Tobacco Use Status: Former Tobacco user Tobacco use type: Cigarette Years Smoked: 20+ years Smoked in Last 30 Days: No e-Cigarette/Vaping Use: Never Used Second Hand Smoke Exposure: No Use of substances other than those prescribed or required for medical reasons: No Advance Directives: Yes Advance Directives on File: Yes Advance Directives Date on File: 11/30/21 Do you have a plan to hurt others: No Plan service: No Current occupational status: disabled Physical Exam 2 Vital Signs: Vital Signs: Last Vital Signs Pulse 80 08/20/24 05:59 Resp 17 08/20/24 05:59 BP 149/73 H 08/20/24 05:59 Pulse Ox 92 08/20/24 05:59 O2 Del Method BiPAP 08/20/24 05:59 Oxygen Flow Rate 3 08/20/24 00:18 BMI result Body Mass Index 39.9 Appearance: Alert. Oriented X3. In moderate respiratory distress distress. Eyes: PERRLA, No Nystagmus ENT: Pharynx normal. Oral Mucosa moist Neck: Normal inspection. Neck supple. CVS: Normal heart rate and rhythm. Pulses normal. Respiratory: No respiratory distress. Equal air entry bilateral, bilateral wheezes with conducted sounds Abdomen: Soft and nontender. Bowel sounds are present, no mass palpable, no CVA tenderness Skin: Skin warm and dry. Normal skin color. Normal skin turgor. Extremities: Trace lower extremity edema. No calf tenderness Neuro: Oriented X 3. No motor deficit. No sensory deficit.No cerebellar signs , cranial nerves II-XII intact Medications Administered Discontinued Medications Generic Name Dose Route Start Last Admin Trade Name Freq PRN Reason Stop Dose Admin Albuterol Sulfate 5 mg/ 0 mg 08/20/24 00:10 08/20/24 00:12 Albuterol/Ipratropium 3 ml INHALE 08/20/24 00:11 7.5 each ONCE ONE Administration Furosemide 20 mg 08/20/24 01:05 08/20/24 01:16 Furosemide 20 Mg/2 Ml Vial IVPUSH 08/20/24 01:06 20 mg ONCE ONE Administration Protocol Methylprednisolone Sodium Succinate 125 mg 08/20/24 01:05 08/20/24 01:16 Methylprednisolone Sod Succ 125 Mg/2 Ml Vial IVPUSH 08/20/24 01:06 125 mg ONCE ONE Administration Medical Decision Making Medical Decision Making [facility] Narrative: Patient has severe COPD with chronic hypoxic hypercapnic failure with frequent admissions comes here with hypoxia and hypercapnia no signs of infection at this time patient just recently finished antibiotics we will not give antibiotic at this time as she has a chronic respiratory failure from emphysema placed on BiPAP plan to admit seen by hospitalist steroids were given Differential Diagnosis Differential Diagnoses: The differential diagnosis associated with the presentation includes Admission/Observation Consideration of admission/observation: Escalation of care including admission/observation considered Consult Healthcare Provider Management of the patient was discussed with: Hospitalist Lab Data [facility] Lab Attestation statement: I reviewed the patient's lab results. 08/20/24 05:39 08/20/24 05:39 Labs: Lab Results 08/20/24 08/20/24 Range/Units 00:34 00:39 WBC 5.6 (4.8-10.8) X10*3/uL RBC 3.71 L (4.20-5.50) X10*6/uL Hgb 11.1 L (12.0-16.0) g/dl Hct 36.8 L (37.0-47.0) % MCV 99.2 H (80.0-98.0) fL MCH 29.9 (27.0-33.0) pg MCHC 30.2 L (31.0-35.0) g/dl RDW 15.1 (11.0-16.0) % Plt Count 322 (160-400) X10*3/uL MPV 8.7 L (9.4-12.3) fL Immature Gran % (Auto) 0.9 H (0.0-0.4) % Neut % (Auto) 75.6 H (45-73) % Lymph % (Auto) 14.7 L (20-40) % [place] % (Auto) 7.6 (2-11) % Eos % (Auto) 0.7 (0-4) % Baso % (Auto) 0.5 (0-2) % Lymph # (Auto) 0.8 L (1.2-4.9) X10*3/uL [place] # (Auto) 0.4 (0.1-1.2) X10*3/uL Eos # (Auto) 0.0 (0.0-0.4) X10*3/uL Baso # (Auto) 0.0 (0.0-0.2) X10*3/uL Abs Immat Gran (auto) 0.05 H (0.00-0.03) X10*3/uL Absolute Neuts (auto) 4.2 (2.0-8.3) x10*3/uL Absolute Nucleated RBC 0.000 (0.0-0.012) X10*3/uL Nucleated RBC % (auto) 0.0 (0.0-0.2) /100WBC VBG pH 7.37 (7.32-7.43) VBG pCO2 91 mmHg VBG pO2 33 mmHg VBG HCO3 54 H (22-26) mmol/L VBG O2 Saturation 52.0 % VBG Base Excess 23.5 mmol/L Sodium 143 (135-145) mmol/L Potassium 3.6 (3.3-5.1) mmol/L Chloride 87 L (96-108) mmol/L Carbon Dioxide 48 H* (22-29) mmol/L Anion Gap 12 (12-20) BUN 16 (9-16) mg/dL Creatinine 0.87 (0.5-1.4) mg/dL Estim Creat Clear Calc 63.6 Estimated GFR > 60 Random Glucose 99 (60-115) mg/dL Calcium 10.3 H D (8.4-10.2) mg/dL Total Bilirubin 0.3 (0.0-1.0) mg/dL AST 19 (5-31) U/L ALT 17 (0-31) U/L Alkaline Phosphatase 71 (39-117) U/L B-Natriuretic Peptide 141 H (<100) pg/mL Total Protein 7.0 (6.5-8.0) g/dL Albumin 4.1 (3.5-5.0) g/dL Independent Interpretation I performed an independent interpretation of an: Plain X-Ray Radiology Impression Discussion of test interpretation with radiology: I have reviewed the radiologist's reading. Radiologist Impression: XR/XR chest 1V IMPRESSION: Pulmonary emphysema. No acute pulmonary findings. Critical Care Time Critical Care Time Critical Care Time: Yes Total Critical Care Time: 55 Attestation: The patient was critically ill with a high probability of imminent or life threatening deterioration. I spent greater than ?60??minutes of discontinuous time evaluating the patient,delivering critical care at the bedside, discussing and evaluating pertinent data with consultants. Critical care time does not include time spent performing separately billable procedures or teaching. Total time spent performing critical care was 55???minutes. Discharge Plan Discharge Clinical Impression: Acute on chronic respiratory failure with hypoxia and hypercapnia, COPD (chronic obstructive pulmonary disease) Patient Disposition: Admitted As Inpatient
--- NOTE | 2024-08-20 00:10 | ECG_ITS ---
Test Reason : dyspnea Blood Pressure : / mmHG Vent. Rate : 078 BPM Atrial Rate : 078 BPM P-R Int : 140 ms QRS Dur : 082 ms QT Int : 346 ms P-R-T Axes : 061 064 043 degrees QTc Int : 394 ms Normal sinus rhythm Normal ECG When compared with ECG of 16-AUG-2024 11:37, No significant change was found Referred By: Puja Goldsmith Electronically Signed By:SHANE NOVA
[2024-08-20] MEDS: Albuterol Sulfate 5 MG, Albuterol/Iprat 2.5/0.5MG 3 ML 3 ML INHALE (00:12)
[2024-08-20 00:38] LABS: Venous Blood Gas Refer to POC result
[2024-08-20 00:39] LABS: Basophils Percent Auto 0.5 % (0-2); Eosinophils Percent Auto 0.7 % (0-4); Hematocrit 36.8 % (37.0-47.0); Hemoglobin 11.1 g/dl (12.0-16.0); Imm Gran Abs Auto 0.05 X10*3/uL (0.00-0.03); Imm Gran Pct Auto 0.9 % (0.0-0.4); Lymphocytes Absolute Auto 0.8 X10*3/uL (1.2-4.9); Lymphocytes Percent Auto 14.7 % (20-40); MANUAL DIFF FLAG NO; Mean Corpuscular HGB Conc 30.2 g/dl (31.0-35.0); Mean Corpuscular Hemoglobin 29.9 pg (27.0-33.0); Mean Corpuscular Volume 99.2 fL (80.0-98.0); Mean Platelet Volume 8.7 fL (9.4-12.3); Monocytes Absolute Auto 0.4 X10*3/uL (0.1-1.2); Monocytes Percent Auto 7.6 % (2-11); Neutrophils Absolute Auto 4.2 x10*3/uL (2.0-8.3); Neutrophils Percent Auto 75.6 % (45-73); Platelet Count 322 X10*3/uL (160-400); Red Blood Count 3.71 X10*6/uL (4.20-5.50); Red Cell Distribution Width 15.1 % (11.0-16.0); White Blood Count 5.6 X10*3/uL (4.8-10.8)
[2024-08-20 00:43] LABS: VBG Base Excess 23.5 mmol/L; VBG HCO3 54 mmol/L (22-26); VBG pCO2 91 mmHg; VBG pH 7.37 (7.32-7.43); VBG pO2 33 mmHg
--- NOTE | 2024-08-20 00:50 | MHC.EDTECH ---
Pt assisted to commode and back to bed. Pt states that it made her very winded and Pts o2 sat in the 70s on 3L. MD zepeda stated to inform respiratory and respiratory called.
[2024-08-20 01:00] LABS: Alanine Aminotransferase 17 U/L (0-31); Albumin Level 4.1 g/dL (3.5-5.0); Alkaline Phosphatase 71 U/L (39-117); Anion Gap 12 (12-20); Aspartate Amino Transferase 19 U/L (5-31); Bilirubin Total 0.3 mg/dL (0.0-1.0); Blood Urea Nitrogen 16 mg/dL (9-16); Calcium 10.3 mg/dL (8.4-10.2); Carbon Dioxide 48 mmol/L (22-29); Chloride 87 mmol/L (96-108); Creatinine Clr Calc Pharmacy 63.6; Estimated Glomerular Filt Rate > 60; Glucose Random 99 mg/dL (60-115); Potassium 3.6 mmol/L (3.3-5.1); Sodium 143 mmol/L (135-145)
--- NOTE | 2024-08-20 01:06 | PC.NURSE ---
Provider and RT pt to go on bipap Plan of care ongoing.
[2024-08-20] MEDS: methylPREDNISolone Sod Succ 125 MG/2 ML VIAL IVPUSH (01:16)
[2024-08-20] MEDS: Furosemide 20 MG/2 ML VIAL IVPUSH (01:16)
--- NOTE | 2024-08-20 01:30 | PC.NURSE ---
Pt medicated per [facility] Plan of care ongoing.
[2024-08-20 01:32] LABS: B Type Natriuretic Peptide 141 pg/mL (<100)
--- NOTE | 2024-08-20 02:27 | PM.IMHP ---
History of Present Illness Date of Service: 08/20/24 Chief Complaint: Dyspnea This is a 69-year-old female with pertinent history of chronic hypoxic hypercapnic failure due to COPD on 3 L baseline oxygen at rest, 6 L during activity and BiPAP at night, hypertension, mood disorder, osteoporosis who presents to the emergency department for evaluation of dyspnea. Patient was recently admitted due to acute on chronic hypoxemic hypercapnic failure due to COPD exacerbation and discharged on 08/12. Patient states her symptoms started few days prior to presentation but worsened on the day of presentation. She states she is compliant with night BiPAP and also has been using BiPAP in the day due to dyspnea. Patient was satting % on home O2 and was sent to the ER for further evaluation. Compliant with home inhaler. Also has associated wheezing but no cough. No fever, chills, chest discomfort, palpitations, abdominal pain, changes in urinary or bowel habits. In the emergency department, pCO2 found to be elevated. Patient was given IV steroids and placed on BiPAP Review of Systems Constitutional: Constitutional: Reports fatigue, Reports poor appetite and Reports weakness Cardiovascular: Cardiovascular: Reports dyspnea on exertion Respiratory: Respiratory: Reports dyspnea on exertion and Reports wheezing Gastrointestinal: Gastrointestinal: Reports no additional gastrointestinal complaints Genitourinary: Genitourinary: Reports no additional female genitourinary complaints Neurologic: Reports weakness Endocrine: Endocrine: Reports fatigue Allergic/Immunologic: Allergic/Immunologic: Reports wheezing [facility] Medical History Rib fractures Pulmonary nodule Tubular adenoma of colon (~2006) Osteopenia (~2012) Bronchopneumonia Chest pain Chronic respiratory alkalosis ILD (interstitial lung disease) CO2 retention Acute on chronic respiratory failure with hypoxia and hypercapnia Bipolar depression Eczema Limb swelling Insomnia Bronchitis Vasomotor rhinitis COPD (chronic obstructive pulmonary disease) Chronic respiratory failure Fall Acute metabolic encephalopathy Acute and chronic respiratory failure with hypercapnia Family History Other Hypertension Surgical History History of carpal tunnel surgery (~2000) History of ventral hernia repair (~2003) History of left inguinal hernia repair (~1995) History of tracheostomy (~2016) History of cataract surgery (~2018) History of colonoscopy Social History Household Members: None and Other Household Members Other:: senior care Housing: Other Housing Other:: senior care [facility] Are you a primary workforce investment act career manager to a significant other at home: No Do you presently have visiting nurse 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) Alcohol intake: unknown Patient Tobacco Use Status: Former Tobacco user Tobacco use type: Cigarette Years Smoked: 20+ years Smoked in Last 30 Days: No e-Cigarette/Vaping Use: Never Used Second Hand Smoke Exposure: No Use of substances other than those prescribed or required for medical reasons: No Advance Directives: Yes Advance Directives on File: Yes Advance Directives Date on File: 11/30/21 Do you have a plan to hurt others: No Plan service: No Current occupational status: disabled Meds Allergies Allergy/AdvReac Type Severity Reaction Status Date / Time codeine [Codeine] Allergy Intermediate RESTLESS/RA Verified 08/20/24 00:20 SH haloperidol [Haldol] Allergy Intermediate Palpitation Verified 08/20/24 00:20 s Sulfa (Sulfonamide Allergy Intermediate HIVES Verified 08/20/24 00:20 Antibiotics) Home Medications ?Medication ?Instructions ?Recorded ?Confirmed ?Last Taken ?Type acetaminophen 500 mg tablet 1,000 mg PO Q6H PRN Pain 02/09/21 08/09/24 07/27/24 07:00 History albuterol sulfate 90 mcg/actuation 2 puff inhalation QID PRN 02/09/21 08/09/24 07/27/24 07:00 History aerosol inhaler (Proventil HFA) Respiratory Distress alendronate 70 mg tablet (Fosamax) 70 mg PO DOMINGUEZ 02/09/21 08/09/24 07/21/24 History aspirin 81 mg tablet,delayed 81 mg PO DAILY 02/09/21 08/09/24 07/27/24 07:00 History release cholecalciferol (vitamin D3) 50 50 mcg PO DAILY 02/09/21 08/09/24 07/27/24 07:00 History mcg (2,000 unit) capsule (Vitamin D3) lamotrigine 150 mg tablet 300 mg PO BEDTIME 02/09/21 08/09/24 07/27/24 07:00 History lamotrigine 200 mg tablet 200 mg PO DAILY 02/09/21 08/09/24 07/27/24 07:00 History montelukast 10 mg tablet 10 mg PO BEDTIME 02/09/21 08/09/24 07/27/24 07:00 History mirtazapine 15 mg tablet 15 mg PO BEDTIME 09/10/21 08/09/24 07/27/24 07:00 History sennosides 8.6 mg tablet (Senokot) 8.6 mg PO BEDTIME 09/10/21 08/09/24 07/27/24 07:00 History metoprolol succinate 50 mg 50 mg PO DAILY 11/18/21 08/09/24 07/27/24 07:00 History tablet,extended release 24 hr aripiprazole 15 mg tablet 10 mg PO DAILY 11/02/22 08/09/24 07/27/24 07:00 History omega-3 fatty acids-fish oil 300 1 cap PO BID 11/02/22 08/09/24 07/27/24 07:00 History mg-500 mg capsule (Fish Oil) Oxygen Home Use 04/15/23 05/17/24 Unknown History fluticasone propionate 50 1 spray intranasal DAILY Allergies 04/15/23 08/09/24 07/27/24 07:00 History mcg/actuation nasal spray,suspension nebulizers 04/15/23 05/17/24 Unknown History vilazodone 40 mg tablet 40 mg PO DAILY 04/15/23 08/09/24 07/27/24 07:00 History gabapentin 100 mg capsule 100 mg PO TID 09/20/23 08/09/24 07/27/24 12:00 History fluticasone furoate 200 1 inh inhalation DAILY SOB 06/21/24 08/09/24 07/27/24 07:00 History mcg-vilanterol 25 mcg/dose inhalation powder (Breo Ellipta) pantoprazole 40 mg tablet,delayed 40 mg PO DAILY@0630 06/21/24 08/09/24 07/27/24 07:00 History release salmeterol 50 mcg/dose blister 1 inh inhalation BID SOB 06/21/24 08/09/24 07/27/24 07:00 History powder for inhalation (Serevent Diskus) albuterol sulfate 2.5 mg/3 mL 2.5 mg inhalation Q6H PRN 07/27/24 08/09/24 Unknown History (0.083 %) solution for nebulization Shortness Of Breath Or Wheezing betamethasone dipropionate 0.05 % 1 appl topical Q12H PRN Dermititis 07/27/24 08/09/24 07/27/24 07:00 History topical cream calcium carbonate 500 mg-vitamin 1 tab PO BID 07/27/24 08/09/24 07/27/24 07:00 History D3 5 mcg (200 unit) tablet (Calcium 500 + D) cyclobenzaprine 5 mg tablet 5 mg PO Q8H PRN Muscle Pain 07/27/24 08/09/24 07/27/24 07:00 History diclofenac sodium 1 % topical gel 1 g topical Q8H PRN Pain 07/27/24 08/09/24 07/27/24 07:00 History docusate sodium 100 mg capsule 100 mg PO DAILY Constipation 07/27/24 08/09/24 07/27/24 07:00 History fluocinolone acetonide oil 0.01 % 4 drp otic (ears) Q48H 07/27/24 08/09/24 Unknown History ear drops (DermOtic Oil) lactulose 10 gram/15 mL oral 30 ml PO DAILY PRN Constipation 07/27/24 08/09/24 07/27/24 07:00 History solution meloxicam 15 mg tablet 15 mg PO DAILY 07/27/24 08/09/24 07/27/24 07:00 History theophylline 200 mg 200 mg PO BID 07/27/24 08/09/24 07/27/24 07:00 History tablet,extended release,12 hr azithromycin 250 mg tablet 250 mg PO DAILY 08/09/24 08/09/24 Unknown History guaifenesin 600 mg tablet, 600 mg PO Q12H 08/09/24 08/09/24 Unknown History extended release 12 hr (Mucinex) Physical Exam Vital Signs and Narrative: Vital Signs: Last Vital Signs Pulse 78 08/20/24 00:13 Resp 24 H 08/20/24 01:18 BP 180/70 H 08/20/24 01:16 Pulse Ox 90 L 08/20/24 00:18 O2 Del Method Nasal Cannula 08/20/24 00:18 Oxygen Flow Rate 3 08/20/24 00:18 BMI result Body Mass Index 39.9 Middle-aged male lying in bed in mild distress on BiPAP Neck supple, no JVD Regular rate and rhythm, S1-S2 heard Diminished breath sounds with expiratory wheezes Abdomen soft nontender, no guarding, no rigidity Patient is awake, alert and oriented to self, place, time and person ; no focal motor deficit Psych: Normal mood Results Labs 08/20/24 00:34 08/20/24 00:34 Labs: Laboratory Results - last 24 hr 08/20/24 08/20/24 00:34 00:39 MCV 99.2 H MCH 29.9 MCHC 30.2 L RDW 15.1 Plt Count 322 MPV 8.7 L Immature Gran % (Auto) 0.9 H Neut % (Auto) 75.6 H Lymph % (Auto) 14.7 L [place] % (Auto) 7.6 Eos % (Auto) 0.7 Baso % (Auto) 0.5 Lymph # (Auto) 0.8 L [place] # (Auto) 0.4 Eos # (Auto) 0.0 Baso # (Auto) 0.0 Abs Immat Gran (auto) 0.05 H Absolute Neuts (auto) 4.2 Absolute Nucleated RBC 0.000 Nucleated RBC % (auto) 0.0 VBG pH 7.37 VBG pCO2 91 VBG pO2 33 VBG HCO3 54 H VBG O2 Saturation 52.0 VBG Base Excess 23.5 Anion Gap 12 Estim Creat Clear Calc 63.6 Estimated GFR > 60 Random Glucose 99 Calcium 10.3 H D Total Bilirubin 0.3 AST 19 ALT 17 Alkaline Phosphatase 71 B-Natriuretic Peptide 141 H Total Protein 7.0 Albumin 4.1 Imaging Radiologist's Impressions: Impressions Chest X-Ray 08/20/24 00:10 IMPRESSION: Pulmonary emphysema. No acute pulmonary findings. Electronically signed by: Bipin Griggs MD 08/20/2024 01:00 AM EDT RP Assessment and Plan (1) COPD exacerbation: Status: Acute Plan This is a 69-year-old female with pertinent history of chronic hypoxic hypercapnic failure due to COPD on 3 L baseline oxygen at rest, 6 L during activity and BiPAP at night, hypertension, mood disorder, osteoporosis who presents to the emergency department for evaluation of dyspnea. #. Acute on chronic hypercapnic hypoxemic respiratory failure due to acute exacerbation of COPD: Will admit patient with supplemental oxygen. Continue BiPAP at night. Systemic steroids, scheduled and p.r.n. DuoNebs. Continue home inhaler. Consulting pulmonology, appreciate assistance #. Mood disorder: On Lamictal #. Hypertension: On Toprol #. Obesity: Weight loss recommended Med rec pending DVT prophylaxis: Lovenox Full code Admit as inpatient and will require two night minimum hospital stay for close monitoring of respiratory status, systemic steroids (as above), which is not possible in a lesser acute setting. Quality Stroke Does the patient have a stroke diagnosis?: No VTE Prior VTE?: No VTE Risk Level:: Medical - moderate - high VTE Device Contraindication: Treatment Not Indicated VTE Drug Contraindication: N/A - Med Ordered
[2024-08-20 06:11] LABS: Basophils Percent Auto 0.4 % (0-2); Hematocrit 36.9 % (37.0-47.0); Hemoglobin 11.1 g/dl (12.0-16.0); Imm Gran Abs Auto 0.06 X10*3/uL (0.00-0.03); Imm Gran Pct Auto 0.8 % (0.0-0.4); Lymphocytes Absolute Auto 0.3 X10*3/uL (1.2-4.9); Lymphocytes Percent Auto 3.7 % (20-40); MANUAL DIFF FLAG SCAN; Mean Corpuscular HGB Conc 30.1 g/dl (31.0-35.0); Mean Corpuscular Hemoglobin 29.2 pg (27.0-33.0); Mean Corpuscular Volume 97.1 fL (80.0-98.0); Mean Platelet Volume 9.3 fL (9.4-12.3); Monocytes Absolute Auto 0.1 X10*3/uL (0.1-1.2); Neutrophils Absolute Auto 6.7 x10*3/uL (2.0-8.3); Neutrophils Percent Auto 94.1 % (45-73); Platelet Count 361 X10*3/uL (160-400); SCAN SMEAR FLAG 1; White Blood Count 7.1 X10*3/uL (4.8-10.8)
[2024-08-20 06:25] LABS: Anion Gap 17 (12-20); Blood Urea Nitrogen 17 mg/dL (9-16); Calcium 9.8 mg/dL (8.4-10.2); Carbon Dioxide 46 mmol/L (22-29); Chloride 88 mmol/L (96-108); Creatinine Clr Calc Pharmacy 61.5; Estimated Glomerular Filt Rate > 60; Glucose Random 169 mg/dL (60-115); Potassium 3.8 mmol/L (3.3-5.1); SLIDE REVIEW VERIFIED; Sodium 147 mmol/L (135-145)
--- NOTE | 2024-08-20 07:00 | PC.NURSE ---
Report taken from Irasema Mccloud RN
[2024-08-20] MEDS: Albuterol/Iprat 2.5/0.5MG 3 ML AMPUL.NEB INHALE ×4 (07:34→19:12)
[2024-08-20] MEDS: Enoxaparin Sodium 40 MG/0.4 ML SYRINGE SUBCUT (09:21)
[2024-08-20] MEDS: methylPREDNISolone Sod Succ 40 MG/ML VIAL IVPUSH ×2 (09:22→12:43)
[2024-08-20] MEDS: Doxycycline Hyclate 100 MG in 0.9 % Sodium Chloride 250 ML 166.67 MG IV ×2 (09:23→22:10)
--- NOTE | 2024-08-20 09:37 | PC.NURSE ---
20G inserted to R wrist. Tolerated well. Good blood return.
--- NOTE | 2024-08-20 09:37 | PC.NURSE ---
Pt. medicated per MAR. Denies concerns or complaints at this time. Resting comfortably in bed. Call light within reach.
[2024-08-20 10:00] LABS: Procalcitonin 0.03 ng/mL
--- NOTE | 2024-08-20 10:01 | PC.NURSE ---
Awaiting 09:15 Diamox per Pharmacy at this time.
--- NOTE | 2024-08-20 10:48 | PC.NURSE ---
Still awaiting Diamox per pharmacy at this time.
--- NOTE | 2024-08-20 11:21 | PHA.MEDREC ---
Addendum entered by Amalia Yoo RPh 08/20/24 11:40: reviewed by [facility]. Original Note: Pharmacy Consult ? Medication Reconciliation Pharmacy has completed the medication reconciliation. Spoke to patient to confirm med list. Patient was a poor historian. Patient states she lives in a custodial and they give her the medication and she takes them. Soke to [facility] ([phone]) from custodial. she faxed over a list of patients medications. Utilized claims and the list from custodial to confirm med list. I wasn't able to confirm Aripiprazole 15 mg . It wasn't on custodial list , however claims says last fill date was 08/15/24 and Furosemide last fill date was 08/12/24
[2024-08-20] MEDS: acetaZOLAMIDE 250 MG TABLET PO (11:48)
--- NOTE | 2024-08-20 12:01 | P.CONPL_ITS ---
History of Present Illness History of Present Illness Consult date: 08/20/24 Chief complaint: Dyspnea Narrative: 69-year-old lady with underlying advanced COPD on supplemental oxygen 3 L at rest and 6 with exertion, also diastolic dysfunction admitted with dyspnea, acute on chronic hypoxia, and mild hypercapnia. Patient states that she suddenly woke up at night feeling particularly out of breath and was wheezing, at that time she checked her pulse oximetry that was displaying her O2 saturation at 50%. At that time patient got very anxious and requested transfer to hospital for evaluation. Patient states also that over the several days prior she had been getting worse lower extremity swelling. On my exam patient O2 saturation is 92% on 2-1/2 L of supplemental oxygen. Review of Systems 2 Constitutional: Constitutional: Denies daytime sleepiness, Denies excessive sweating, Denies fatigue, Denies fever(s), Denies lethargy, Denies malaise, Denies night sweats, Denies snoring and Denies weight loss Eyes: Eyes: Denies blurry vision and Denies itchy eyes ENT: Denies nasal congestion, Denies post nasal drip, Denies sinus pain, Denies sinus pressure and Denies other ( Thrush) Cardiovascular: Cardiovascular: Denies chest pain, Reports pedal edema, Denies dyspnea, Reports dyspnea on exertion, Reports orthopnea and Reports paroxysmal nocturnal dyspnea Respiratory: Respiratory: Denies cough, Denies hemoptysis, Denies excessive phlegm production, Denies dyspnea, Reports dyspnea on exertion, Denies snoring and Denies wheezing Gastrointestinal: Gastrointestinal: Denies abdominal pain and Denies heartburn Musculoskeletal: Musculoskeletal: Denies myalgias, Denies arthralgias and Denies joint swelling Integumentary/Breasts: Skin/Breast: Denies rash Neurologic: Denies memory loss and Denies seizure-like activity Psychiatric: Psychiatric: Denies abnormal sleep pattern, Denies anxiety and Denies memory loss Endocrine: Endocrine: Denies excessive sweating, Denies fatigue and Denies heat intolerance Hematologic/Lymphatic: Hematologic/Lymphatic: Denies easy bruising Allergic/Immunologic: Allergic/Immunologic: Denies itchy eyes, Denies seasonal rhinorrhea and Denies wheezing PMFSH Past Medical History Medical History Rib fractures Pulmonary nodule Tubular adenoma of colon (~2006) Osteopenia (~2012) Bronchopneumonia Chest pain Chronic respiratory alkalosis ILD (interstitial lung disease) CO2 retention Acute on chronic respiratory failure with hypoxia and hypercapnia Bipolar depression Eczema Limb swelling Insomnia Bronchitis Vasomotor rhinitis COPD (chronic obstructive pulmonary disease) Chronic respiratory failure Fall Acute metabolic encephalopathy Acute and chronic respiratory failure with hypercapnia Family History Family History Other Hypertension Surgical History Surgical History History of carpal tunnel surgery (~2000) History of ventral hernia repair (~2003) History of left inguinal hernia repair (~1995) History of tracheostomy (~2016) History of cataract surgery (~2018) History of colonoscopy Social History Social History Household Members: None and Other Household Members Other:: [facility] Housing: Other Housing Other:: [facility] Are you a primary career development specialist to a significant other at home: No Do you presently have visiting nurse 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) Alcohol intake: unknown Patient Tobacco Use Status: Former Tobacco user Tobacco use type: Cigarette Years Smoked: 20+ years Smoked in Last 30 Days: No e-Cigarette/Vaping Use: Never Used Second Hand Smoke Exposure: No Use of substances other than those prescribed or required for medical reasons: No Advance Directives: Yes Advance Directives on File: Yes Advance Directives Date on File: 11/30/21 Do you have a plan to hurt others: No Plan service: No Current occupational status: disabled Meds Allergies Allergy/AdvReac Type Severity Reaction Status Date / Time codeine [Codeine] Allergy Intermediate RESTLESS/RA Verified 08/20/24 00:20 SH haloperidol [Haldol] Allergy Intermediate Palpitation Verified 08/20/24 00:20 s Sulfa (Sulfonamide Allergy Intermediate HIVES Verified 08/20/24 00:20 Antibiotics) Active Medications: Current Medications Acetaminophen (Acetaminophen 325 Mg Tablet) 650 mg PO Q6H PRN PRN Reason: Pain, Mild (Pain Scale 1-3), fever or headache Acetazolamide (Acetazolamide 250 Mg Tablet) 250 mg PO BID ALYSSA Stop: 08/20/24 21:01 Last Admin: 08/20/24 11:48 Dose: 250 mg Albuterol/Ipratropium (Albuterol/Iprat 2.5/0.5mg 3 Ml Ampul.Neb) 3 ml INHALE RQ4H WHILE AWAKE [facility] Last Admin: 08/20/24 11:24 Dose: 3 ml Albuterol/Ipratropium (Albuterol/Iprat 2.5/0.5mg 3 Ml Ampul.Neb) 3 ml INHALE Q4H PRN PRN Reason: Wheezing Aripiprazole (Aripiprazole 10 Mg Tablet) 10 mg PO DAILY [facility] Aspirin (Aspirin Enteric Coated 81 Mg Tablet.Dr) 81 mg PO DAILY [facility] Calcium Carbonate (Calcium Carbonate 750 Mg Tab.Chew) 750 mg PO Q4H PRN PRN Reason: Heartburn Cyclobenzaprine HCl (Cyclobenzaprine Hcl 5 Mg Tablet) 5 mg PO Q8H PRN PRN Reason: Muscle Pain Docusate Sodium (Docusate Sodium 100 Mg Capsule) 100 mg PO DAILY [facility] Enoxaparin Sodium (Enoxaparin Sodium 40 Mg/0.4 Ml Syringe) 40 mg SUBCUT Q24H [facility] Last Admin: 08/20/24 09:21 Dose: 40 mg Fluticasone Propionate (Fluticasone Propionate Nasal 16 Gm [place]) 1 spray NOSTRIL-B DAILY [facility] Fluticasone/Vilanterol (Fluticasone/Vilanterol 200/25 Blst.W.Dev) 1 puff INHALE DAILY [facility] Furosemide (Furosemide 20 Mg Tablet) 20 mg PO DAILY [facility]; Protocol Gabapentin (Gabapentin 100 Mg Capsule) 100 mg PO TID [facility] Doxycycline Hyclate 100 mg/ (Sodium Chloride) 250 mls @ 166.67 mls/hr IV BID [facility] Last Infusion: 08/20/24 11:08 Dose: Infused Lactulose (Lactulose 20 Gm/30 Ml Solution) 20 gm PO DAILY PRN PRN Reason: Constipation Lamotrigine (Lamotrigine 100 Mg Tablet) 200 mg PO DAILY [facility] Lamotrigine (Lamotrigine 100 Mg Tablet) 300 mg PO BEDTIME [facility] Magnesium Hydroxide (Milk Of Magnesia 30 Ml Oral.Susp) 30 ml PO DAILY PRN PRN Reason: Constipation Melatonin (Melatonin 3 Mg Tablet) 6 mg PO BEDTIME PRN PRN Reason: Insomnia Methylprednisolone Sodium Succinate (Methylprednisolone Sod Succ 40 Mg/Ml Vial) 40 mg IVPUSH Q12H [facility] Last Admin: 08/20/24 09:22 Dose: 40 mg Metoprolol Succinate (Metoprolol Succinate Er 50 Mg Tab.Er.24h) 50 mg PO DAILY [facility]; Protocol Mirtazapine (Mirtazapine 15 Mg Tablet) 15 mg PO BEDTIME [facility] Montelukast Sodium (Montelukast Sodium 10 Mg Tablet) 10 mg PO BEDTIME [facility] Non-Formulary Medication (Calcium Carbonate-Vitamin D3 [Oyster Shell Calcium-Vit D3]) 1 tab PO BID [facility] Non-Formulary Medication (Pantoprazole) 40 mg PO DAILY@0630 [facility] Non-Formulary Medication (Theophylline) 200 mg PO BID [facility] Ondansetron HCl (Ondansetron Hcl 4 Mg/2 Ml Vial) 4 mg IVPUSH Q8H PRN PRN Reason: Nausea and Vomiting Salmeterol Xinafoate (Salmeterol Xinafoate 50 Mcg Blst.W.Dev) 1 puff INHALE BID [facility] Senna (Sennosides 8.6 Mg Tablet) 8.6 mg PO BEDTIME [facility] Sodium Chloride (0.9 % Sodium Chloride Flush 3 Ml Syringe) 3 ml IVFLUSH QSHIFT [facility] Last Admin: 08/20/24 09:23 Dose: Not Given Vilazodone HCl (Vilazodone Hcl 40 Mg Tablet) 40 mg PO DAILY [facility] Vitamin D (Cholecalciferol (Vitamin D3) 25 Mcg Tablet) 50 mcg PO DAILY [facility] Home Medications ?Medication ?Instructions ?Recorded ?Confirmed ?Last Taken ?Type acetaminophen 500 mg tablet 1,000 mg PO Q6H PRN Pain 02/09/21 08/20/24 08/19/24 History albuterol sulfate 90 mcg/actuation 2 puff inhalation QID PRN 02/09/21 08/20/24 08/19/24 History aerosol inhaler (Proventil HFA) Respiratory Distress alendronate 70 mg tablet (Fosamax) 70 mg PO DOMINGUEZ 02/09/21 08/20/24 08/19/24 History aspirin 81 mg tablet,delayed 81 mg PO DAILY 02/09/21 08/20/24 08/19/24 History release cholecalciferol (vitamin D3) 50 50 mcg PO DAILY 02/09/21 08/20/24 08/19/24 History mcg (2,000 unit) capsule (Vitamin D3) lamotrigine 150 mg tablet 300 mg PO BEDTIME 02/09/21 08/20/24 08/19/24 History montelukast 10 mg tablet 10 mg PO BEDTIME 02/09/21 08/20/24 08/19/24 History mirtazapine 15 mg tablet 15 mg PO BEDTIME 09/10/21 08/20/24 08/19/24 History sennosides 8.6 mg tablet (Senokot) 8.6 mg PO BEDTIME 09/10/21 08/20/24 08/19/24 History metoprolol succinate 50 mg 50 mg PO DAILY 11/18/21 08/20/24 08/19/24 History tablet,extended release 24 hr Oxygen Home Use 04/15/23 05/17/24 Unknown History fluticasone propionate 50 1 spray intranasal DAILY Allergies 04/15/23 08/20/24 08/19/24 History mcg/actuation nasal spray,suspension nebulizers 04/15/23 05/17/24 Unknown History vilazodone 40 mg tablet 40 mg PO DAILY 04/15/23 08/20/24 08/19/24 History gabapentin 100 mg capsule 100 mg PO TID 09/20/23 08/20/24 08/19/24 History fluticasone furoate 200 1 inh inhalation DAILY SOB 06/21/24 08/20/24 08/19/24 History mcg-vilanterol 25 mcg/dose inhalation powder (Breo Ellipta) pantoprazole 40 mg tablet,delayed 40 mg PO DAILY@0630 06/21/24 08/20/24 08/19/24 History release betamethasone dipropionate 0.05 % 1 appl topical Q12H PRN Dermititis 07/27/24 08/20/24 08/19/24 History topical cream cyclobenzaprine 5 mg tablet 5 mg PO Q8H PRN Muscle Pain 07/27/24 08/20/24 08/19/24 History diclofenac sodium 1 % topical gel 1 g topical Q8H PRN Pain 07/27/24 08/20/24 08/19/24 History docusate sodium 100 mg capsule 100 mg PO DAILY Constipation 07/27/24 08/20/24 08/19/24 History fluocinolone acetonide oil 0.01 % 4 drp otic (ears) Q48H 0808/20/24 08/19/24 History ear drops (DermOtic Oil) lactulose 10 gram/15 mL oral 30 ml PO DAILY PRN Constipation 07/27/24 08/20/24 08/19/24 History solution meloxicam 15 mg tablet 15 mg PO DAILY 07/27/24 08/20/24 08/19/24 History theophylline 200 mg 200 mg PO BID 07/27/24 08/20/24 08/19/24 History tablet,extended release,12 hr albuterol sulfate 2.5 mg/3 mL 2.5 mg inhalation Q6H PRN wheezing 08/20/24 08/20/24 08/19/24 History (0.083 %) solution for nebulization aripiprazole 10 mg tablet 10 mg PO DAILY 08/20/24 08/20/24 Unknown History calcium carbonate 500 mg-vitamin 1 tab PO BID 08/20/24 08/20/24 Unknown History D3 10 mcg (400 unit) tablet (Oyster Shell Calcium-Vitamin D3) lamotrigine 200 mg tablet 200 mg PO DAILY 08/20/24 08/20/24 Unknown History mineral oil 1 appl topical Q48H PRN eczema 08/20/24 08/20/24 Unknown History omega 9-inx-jix-fish oil 1,000 mg 1 cap PO BID 08/20/24 08/20/24 Unknown History (120 mg-180 mg) capsule (Fish Oil) salmeterol 50 mcg/dose blister 1 inh inhalation BID 08/20/24 08/20/24 Unknown History powder for inhalation (Serevent Diskus) Physical Exam 2 Vital Signs: Vital Signs: Last Vital Signs Pulse 87 08/20/24 11:37 Resp 16 08/20/24 11:37 BP 149/73 H 08/20/24 05:59 Pulse Ox 92 08/20/24 05:59 O2 Del Method BiPAP 08/20/24 05:59 Oxygen Flow Rate 3 08/20/24 00:18 BMI result Body Mass Index 39.9 Const: General: no acute distress and alert Nutritional Appearance: not obese Orientation/consciousness: Other orientation findings ( oriented) HEENT: Head: Yes atraumatic Eyes: General: appearance normal, both eyes and all related structures S clerae: sclerae normal EOM: EOMs intact bilaterally Neck: Neck: Yes supple Lymphatic: no lymphadenopathy noted Resp: Effort & Inspection: normal respiratory effort and no use of accessory muscles Auscultation: clear to auscultation bilaterally Cardio: Rate: regular rate Rhythm: regular rhythm Heart sounds: no gallops, no murmurs and no rubs GI: Palpation (GI): Soft to palpation and Other GI palpation findings present ( Nontender) Auscultation: normal bowel sounds Skin: General skin exam: other ( warm) Extrem: General: No clubbing, No cyanosis and No edema Results Laboratory Findings 08/20/24 05:39 08/20/24 05:39 Abnormal lab findings: Abnormal Labs 08/20/24 08/20/24 08/20/24 00:34 00:39 05:39 RBC 3.71 L 3.80 L Hgb 11.1 L 11.1 L Hct 36.8 L 36.9 L MCV 99.2 H MCHC 30.2 L 30.1 L MPV 8.7 L 9.3 L Immature Gran % (Auto) 0.9 H 0.8 H Neut % (Auto) 75.6 H 94.1 H Lymph % (Auto) 14.7 L 3.7 L [place] % (Auto) 1.0 L Lymph # (Auto) 0.8 L 0.3 L Abs Immat Gran (auto) 0.05 H 0.06 H VBG HCO3 54 H Sodium 147 H Chloride 87 L 88 L Carbon Dioxide 48 H* 46 H* BUN 17 H Random Glucose 169 H Calcium 10.3 H D B-Natriuretic Peptide 141 H Assessment and Plan (1) COPD (chronic obstructive pulmonary disease): Status: Acute (2) Acute on chronic hypoxic respiratory failure: Status: Resolved (3) Pulmonary edema: Status: Acute Plan Impression: 69-year-old lady with underlying COPD with CO2 retention admitted with acute on chronic hypoxia that appears to be secondary to worsening pulmonary edema, improving slowly. Recommendations: Agree with empiric treatment for COPD exacerbation. Would also consider diuresis with increased dose of acetazolamide. Consider tapering off systemic glucocorticoids. Procedures Date of Service Date of Service: 08/20/24
--- NOTE | 2024-08-20 12:20 | PM.EVENT ---
Event Note Date of Service: 08/20/24 Event Note: Day hospitalist update S: breathing improved no chest pain no wheezing O: Pulse Resp BP Pulse Ox O2 Del Method 87 16 149/73 H 92 BiPAP 08/20/24 11:37 08/20/24 11:37 08/20/24 05:59 08/20/24 05:59 08/20/24 05:59 Gen: in no acute distress HEENT: sclera anicteric, moist mucus membranes Neck: supple Lungs: diminished throughout Heart: regular rate and rhythm, no murmurs Abd: soft, non-tender, non-distended Ext: no edema Skin: warm/well-perfused Neuro: alert and oriented x3, no focal findings Psych: appropriate affect A/P: d1 acute/chronic hypoxic/hypercapneic resp failure due to COPD exac - IV steroids, doxycycline, check respiratory pathogen panel, BiPAP at night, acetazolamide; continue theophylline + home inhalers ?acute/chronic HFpEF - continue acetazolamide, home dose of furosemide, montior BNP + lytes + I/Os hyperNa - encourage free water intake, recheck BMP in AM HTN - continue metoprolol succinate bipolar depression - continue aripiprazole, lamotrigine, mirtazapine, vilazodone VTE ppx - enoxaparin dispo - TBD In my clinical judgment, the patient requires continued hospitalization for the following reasons: resp failure Time Spent With Patient Time: Total time managing care of this patient today ____ minutes.
--- NOTE | 2024-08-20 13:33 | MHC.CM.PN ---
Pt from a [facility] long term director is pj [phone] who will be faxing paperwork that needs to be completed at time of dc to cm office pt will be transported home by [facility] or long term depending on staffing pt uses 02 at g/h 3 liters at rest or 6 liters when active she also has a trilogy pt has 24 hr care t nhome med certified cnas ,no nursing dc plan return to [facility]
[2024-08-20] MEDS: Gabapentin 100 MG CAPSULE PO ×2 (16:12→22:08)
[2024-08-20] MEDS: 0.9 % Sodium Chloride Flush 3 ML SYRINGE IVFLUSH ×2 (16:17→23:51)
[2024-08-20] MEDS: Salmeterol Xinafoate 50 MCG BLST.W.DEV 1 PUFF INHALE (19:11)
[2024-08-20] MEDS: lamoTRIgine 100 MG TABLET 300 MG PO (22:08)
[2024-08-20] MEDS: Sennosides 8.6 MG TABLET PO (22:08)
[2024-08-20] MEDS: Montelukast Sodium 10 MG TABLET PO (22:08)
[2024-08-20] MEDS: acetaZOLAMIDE 250 MG TABLET 500 MG PO (23:49)
[2024-08-20] MEDS: Mirtazapine 15 MG TABLET PO (23:50)
[2024-08-21] VITALS (14 sets, daily range): BP systolic 128–144; BP diastolic 62–76; PULSE 67–91; RESP 16–25; TEMP 36.2–36.7; O2SAT 72–98
[2024-08-21 05:46] LABS: VBG Base Excess 17.3 mmol/L; VBG HCO3 44 mmol/L (22-26); VBG pCO2 64 mmHg; VBG pH 7.44 (7.32-7.43); VBG pO2 47 mmHg
[2024-08-21 05:46] LABS: Hematocrit 33.9 % (37.0-47.0); Hemoglobin 10.4 g/dl (12.0-16.0); Mean Corpuscular HGB Conc 30.7 g/dl (31.0-35.0); Mean Corpuscular Hemoglobin 29.5 pg (27.0-33.0); Mean Corpuscular Volume 96.3 fL (80.0-98.0); Mean Platelet Volume 9.2 fL (9.4-12.3); Platelet Count 320 X10*3/uL (160-400); Red Blood Count 3.52 X10*6/uL (4.20-5.50); Red Cell Distribution Width 15.4 % (11.0-16.0); White Blood Count 8.8 X10*3/uL (4.8-10.8)
[2024-08-21 05:51] LABS: Venous Blood Gas Refer to POC result
[2024-08-21 06:14] LABS: Anion Gap 13 (12-20); Blood Urea Nitrogen 23 mg/dL (9-16); Calcium 9.7 mg/dL (8.4-10.2); Carbon Dioxide 37 mmol/L (22-29); Chloride 96 mmol/L (96-108); Creatinine Clr Calc Pharmacy 61.5; Estimated Glomerular Filt Rate > 60; Glucose Random 117 mg/dL (60-115); Sodium 142 mmol/L (135-145)
[2024-08-21 06:53] LABS: B Type Natriuretic Peptide 184 pg/mL (<100)
[2024-08-21] MEDS: Omeprazole 20 MG CAPSULE.DR PO (07:12)
[2024-08-21] MEDS: Albuterol/Iprat 2.5/0.5MG 3 ML AMPUL.NEB INHALE ×4 (08:13→20:42)
[2024-08-21] MEDS: Salmeterol Xinafoate 50 MCG BLST.W.DEV 1 PUFF INHALE ×2 (08:13→20:42)
[2024-08-21 09:46] LABS: Adenovirus PCR Not Detected (Not Detect.); Bordetella parapertussis PCR Not Detected (Not Detect.); Bordetella pertussis PCR Not Detected (Not Detect.); Chlamydia pneumoniae PCR Not Detected (Not Detect.); Coronavirus 229E PCR Not Detected (Not Detect.); Coronavirus HKU1 PCR Not Detected (Not Detect.); Coronavirus NL63 PCR Not Detected (Not Detect.); Coronavirus OC43 PCR Not Detected (Not Detect.); Human metapneumovirus PCR Not Detected (Not Detect.); Influenza A PCR Not Detected (Not Detect.); Influenza B PCR Not Detected (Not Detect.); Mycoplasma pneumoniae PCR Not Detected (Not Detect.); Parainfluenza 1 PCR Not Detected (Not Detect.); Parainfluenza 2 PCR Not Detected (Not Detect.); Parainfluenza 3 PCR Not Detected (Not Detect.); Parainfluenza 4 PCR Not Detected (Not Detect.); RSV PCR Not Detected (Not Detect.); Rhino/Enterovirus PCR Not Detected (Not Detect.)
[2024-08-21 10:39] LABS: SARS-CoV-2 PCR Not Detected (Not Detect.)
--- NOTE | 2024-08-21 11:06 | P.PNIM_ITS ---
Subjective Subjective Date of Service: 08/21/24 Interval History: breathing improved no chest pain no edema Review of Systems Review of Systems: Yes all other systems are reviewed and are negative Physical Exam 2 Vital Signs: Vital Signs: Last Vital Signs Temp 97.8 F 08/21/24 07:38 Pulse 76 08/21/24 08:15 Resp 17 08/21/24 08:15 BP 130/62 08/21/24 07:38 Pulse Ox 94 08/21/24 07:38 O2 Del Method CPAP 08/21/24 07:38 O2 Flow Rate 3 08/21/24 07:38 Oxygen Flow Rate 3 08/20/24 00:18 BMI result Body Mass Index 37.7 Gen: in no acute distress HEENT: sclera anicteric, moist mucus membranes Neck: supple Lungs: diminished throughout Heart: regular rate and rhythm, no murmurs Abd: soft, non-tender, non-distended Ext: no edema Skin: warm/well-perfused Neuro: alert and oriented x3, no focal findings Psych: appropriate affect Objective Data Active Medications Acetaminophen (Acetaminophen 325 Mg Tablet) 650 mg PO Q6H PRN PRN Reason: Pain, Mild (Pain Scale 1-3), fever or headache Albuterol/Ipratropium (Albuterol/Iprat 2.5/0.5mg 3 Ml Ampul.Neb) 3 ml INHALE RQ4H WHILE AWAKE [facility] Last Admin: 08/21/24 08:13 Dose: 3 ml Documented By: DIPTI Albuterol/Ipratropium (Albuterol/Iprat 2.5/0.5mg 3 Ml Ampul.Neb) 3 ml INHALE Q4H PRN PRN Reason: Wheezing Aripiprazole (Aripiprazole 10 Mg Tablet) 10 mg PO DAILY [facility] Aspirin (Aspirin Enteric Coated 81 Mg Tablet.Dr) 81 mg PO DAILY [facility] Calcium Carbonate (Calcium Carbonate 750 Mg Tab.Chew) 750 mg PO Q4H PRN PRN Reason: Heartburn Cyclobenzaprine HCl (Cyclobenzaprine Hcl 5 Mg Tablet) 5 mg PO Q8H PRN PRN Reason: Muscle Pain Docusate Sodium (Docusate Sodium 100 Mg Capsule) 100 mg PO DAILY [facility] Enoxaparin Sodium (Enoxaparin Sodium 40 Mg/0.4 Ml Syringe) 40 mg SUBCUT Q24H [facility] Last Admin: 08/20/24 09:21 Dose: 40 mg Documented By: OKSANA Fluticasone Propionate (Fluticasone Propionate Nasal 16 Gm [place]) 1 spray NOSTRIL-B DAILY [facility] Fluticasone/Vilanterol (Fluticasone/Vilanterol 200/25 Blst.W.Dev) 1 puff INHALE RDAILY [facility] Furosemide (Furosemide 20 Mg Tablet) 20 mg PO DAILY [facility]; Protocol Gabapentin (Gabapentin 100 Mg Capsule) 100 mg PO TID [facility] Last Admin: 08/20/24 22:08 Dose: 100 mg Documented By: ANGELICA Doxycycline Hyclate 100 mg/ (Sodium Chloride) 250 mls @ 166.67 mls/hr IV BID [facility] Last Infusion: 08/20/24 23:51 Dose: Infused Documented By: DAVE Lactulose (Lactulose 20 Gm/30 Ml Solution) 20 gm PO DAILY PRN PRN Reason: Constipation Lamotrigine (Lamotrigine 100 Mg Tablet) 200 mg PO DAILY [facility] Lamotrigine (Lamotrigine 100 Mg Tablet) 300 mg PO BEDTIME [facility] Last Admin: 08/20/24 22:08 Dose: 300 mg Documented By: ANGELICA Magnesium Hydroxide (Milk Of Magnesia 30 Ml Oral.Susp) 30 ml PO DAILY PRN PRN Reason: Constipation Melatonin (Melatonin 3 Mg Tablet) 6 mg PO BEDTIME PRN PRN Reason: Insomnia Methylprednisolone Sodium Succinate (Methylprednisolone Sod Succ 40 Mg/Ml Vial) 40 mg IVPUSH Q24H [facility] Last Admin: 08/20/24 12:43 Dose: 40 mg Documented By: GABY Metoprolol Succinate (Metoprolol Succinate Er 50 Mg Tab.Er.24h) 50 mg PO DAILY [facility]; Protocol Mirtazapine (Mirtazapine 15 Mg Tablet) 15 mg PO BEDTIME [facility] Last Admin: 08/20/24 23:50 Dose: 15 mg Documented By: DAVE Montelukast Sodium (Montelukast Sodium 10 Mg Tablet) 10 mg PO BEDTIME [facility] Last Admin: 08/20/24 22:08 Dose: 10 mg Documented By: ANGELICA Non-Formulary Medication (Theophylline) 200 mg PO BID [facility] Omeprazole (Omeprazole 20 Mg Capsule.Dr) 20 mg PO DAILY@0630 [facility] Last Admin: 08/21/24 07:12 Dose: 20 mg Documented By: GISELLA Ondansetron HCl (Ondansetron Hcl 4 Mg/2 Ml Vial) 4 mg IVPUSH Q8H PRN PRN Reason: Nausea and Vomiting Salmeterol Xinafoate (Salmeterol Xinafoate 50 Mcg Blst.W.Dev) 1 puff INHALE BID [facility] Last Admin: 08/21/24 08:13 Dose: 1 puff Documented By: DIPTI Senna (Sennosides 8.6 Mg Tablet) 8.6 mg PO BEDTIME [facility] Last Admin: 08/20/24 22:08 Dose: 8.6 mg Documented By: COOPER-INDIA Sodium Chloride (0.9 % Sodium Chloride Flush 3 Ml Syringe) 3 ml IVFLUSH QSHIFT [facility] Last Admin: 08/20/24 23:51 Dose: 3 ml Documented By: DAVE Vilazodone HCl (Vilazodone Hcl 40 Mg Tablet) 40 mg PO DAILY [facility] Vitamin D (Cholecalciferol (Vitamin D3) 25 Mcg Tablet) 50 mcg PO DAILY [facility] Labs 08/21/24 05:35 08/21/24 05:35 Labs: Laboratory Results - last 24 hr 08/20/24 08/21/24 08/21/24 17:27 05:35 05:43 MCV 96.3 MCH 29.5 MCHC 30.7 L RDW 15.4 Plt Count 320 MPV 9.2 L Absolute Nucleated RBC 0.000 Nucleated RBC % (auto) 0.0 VBG pH 7.44 H VBG pCO2 64 VBG pO2 47 VBG HCO3 44 H VBG O2 Saturation 80.0 VBG Base Excess 17.3 Anion Gap 13 Estim Creat Clear Calc 61.5 Estimated GFR > 60 Random Glucose 117 H Calcium 9.7 B-Natriuretic Peptide 184 H Respiratory Panel [place] See Note Adenovirus (Rapid PCR) Not Detected B.pert (TEM-PCR) Not Detected B.parapertussis DNA PCR Not Detected C. pneumoniae DNA (PCR) Not Detected Coronavirus OC43 (PCR) Not Detected Coronavirus HKU1 (PCR) Not Detected Coronavirus 229E (PCR) Not Detected Coronavirus NL63 (PCR) Not Detected Human Metapneumovir PCR Not Detected Influenza A (RT-PCR) Not Detected Influenza B (RT-PCR) Not Detected M. pneumoniae (PCR) Not Detected Parainfluenza 1 (PCR) Not Detected Parainfluenza 2 (PCR) Not Detected Parainfluenza 3 (PCR) Not Detected Parainfluenza 4 (PCR) Not Detected RSV (PCR) Not Detected Entero/Rhino (PCR) Not Detected SARS-CoV-2 RNA (RT-PCR) Not Detected Assessment and Plan (1) Pulmonary edema: Status: Acute (2) Acute on chronic respiratory failure with hypoxia and hypercapnia: Status: Acute Plan d2 69yo F with chronic hypoxic/hypercapneic resp failure on Trilogy ventilator + 3L O2 at rest/6L with activity, HTN, mood disorder, HFpEF presenting with dyspnea, admitted for COPD exac acute/chronic hypoxic/hypercapneic resp failure due to COPD exac - IV steroids, doxycycline 08/20-, RPP negative, BiPAP at night, continue theophylline + home inhalers; appreciate Pulm consult ?acute/chronic HFpEF - got IV acetazolamide, will give 2 doses of of IV furosemide, montior BNP + lytes + I/Os hyperNa - resolved HTN - continue metoprolol succinate bipolar depression - continue aripiprazole, lamotrigine, mirtazapine, vilazodone VTE ppx - enoxaparin dispo - PT eval In my clinical judgment, the patient requires continued hospitalization for the following reasons: resp failure Total time managing care of this patient today: 35 minutes. Quality Stroke Does the patient have a stroke diagnosis?: No VTE Prior VTE?: No VTE Risk Level:: Medical - moderate - high VTE Device Contraindication: Treatment Not Indicated VTE Drug Contraindication: N/A - Med Ordered
[2024-08-21] MEDS: 0.9 % Sodium Chloride Flush 3 ML SYRINGE IVFLUSH ×3 (11:58→21:09)
[2024-08-21] MEDS: Doxycycline Hyclate 100 MG in 0.9 % Sodium Chloride 250 ML 166.7 MG IV ×2 (11:59→21:02)
[2024-08-21] MEDS: Cholecalciferol (Vitamin D3) 25 MCG TABLET 50 MCG PO (12:01)
[2024-08-21] MEDS: ARIPiprazole 10 MG TABLET PO (12:01)
[2024-08-21] MEDS: Aspirin Enteric Coated 81 MG TABLET.DR PO (12:01)
[2024-08-21] MEDS: Docusate Sodium 100 MG CAPSULE PO (12:01)
[2024-08-21] MEDS: Vilazodone HCL 40 MG TABLET PO (12:02)
[2024-08-21] MEDS: Metoprolol Succinate ER 50 MG TAB.ER.24H PO (12:03)
[2024-08-21] MEDS: Enoxaparin Sodium 40 MG/0.4 ML SYRINGE SUBCUT (12:04)
[2024-08-21] MEDS: lamoTRIgine 100 MG TABLET 200 MG PO (12:04)
[2024-08-21] MEDS: Gabapentin 100 MG CAPSULE PO ×3 (12:04→21:02)
[2024-08-21] MEDS: methylPREDNISolone Sod Succ 40 MG/ML VIAL IVPUSH (12:06)
[2024-08-21] MEDS: Furosemide 20 MG/2 ML VIAL IVPUSH (17:53)
[2024-08-21] MEDS: Sennosides 8.6 MG TABLET PO (21:02)
[2024-08-21] MEDS: Mirtazapine 15 MG TABLET PO (21:02)
[2024-08-21] MEDS: lamoTRIgine 100 MG TABLET 300 MG PO (21:02)
[2024-08-21] MEDS: Montelukast Sodium 10 MG TABLET PO (21:02)
[2024-08-22] VITALS (13 sets, daily range): BP systolic 115–142; BP diastolic 58–80; PULSE 66–97; RESP 16–29; TEMP 36.1–36.6; O2SAT 93–99
[2024-08-22] MEDS: Omeprazole 20 MG CAPSULE.DR PO (06:08)
[2024-08-22 06:15] LABS: Venous Blood Gas Refer to POC result
[2024-08-22 06:16] LABS: VBG Base Excess 14.7 mmol/L; VBG HCO3 44 mmol/L (22-26); VBG pCO2 86 mmHg; VBG pH 7.31 (7.32-7.43); VBG pO2 30 mmHg
[2024-08-22 06:42] LABS: B Type Natriuretic Peptide 112 pg/mL (<100)
[2024-08-22 06:43] LABS: Anion Gap 11 (12-20); Blood Urea Nitrogen 26 mg/dL (9-16); Calcium 8.7 mg/dL (8.4-10.2); Carbon Dioxide 36 mmol/L (22-29); Chloride 97 mmol/L (96-108); Creatinine Clr Calc Pharmacy 51.5; Estimated Glomerular Filt Rate 52; Glucose Random 96 mg/dL (60-115); Potassium 3.7 mmol/L (3.3-5.1); Sodium 140 mmol/L (135-145)
[2024-08-22] MEDS: Salmeterol Xinafoate 50 MCG BLST.W.DEV 1 PUFF INHALE ×2 (07:30→20:50)
[2024-08-22] MEDS: Fluticasone/Vilanterol 200/25 BLST.W.DEV 1 PUFF INHALE (07:30)
[2024-08-22] MEDS: Albuterol/Iprat 2.5/0.5MG 3 ML AMPUL.NEB INHALE ×4 (07:30→20:36)
[2024-08-22] MEDS: Docusate Sodium 100 MG CAPSULE PO (08:09)
[2024-08-22] MEDS: Metoprolol Succinate ER 50 MG TAB.ER.24H PO (08:09)
[2024-08-22] MEDS: lamoTRIgine 100 MG TABLET 200 MG PO (08:10)
[2024-08-22] MEDS: Aspirin Enteric Coated 81 MG TABLET.DR PO (08:10)
[2024-08-22] MEDS: ARIPiprazole 10 MG TABLET PO (08:10)
[2024-08-22] MEDS: Vilazodone HCL 40 MG TABLET PO (08:10)
[2024-08-22] MEDS: 0.9 % Sodium Chloride Flush 3 ML SYRINGE IVFLUSH ×3 (08:10→20:39)
[2024-08-22] MEDS: Furosemide 20 MG/2 ML VIAL IVPUSH (08:10)
[2024-08-22] MEDS: Cholecalciferol (Vitamin D3) 25 MCG TABLET 50 MCG PO (08:10)
[2024-08-22] MEDS: Gabapentin 100 MG CAPSULE PO ×3 (08:10→20:35)
[2024-08-22] MEDS: Enoxaparin Sodium 40 MG/0.4 ML SYRINGE SUBCUT (08:11)
[2024-08-22] MEDS: Doxycycline Hyclate 100 MG in 0.9 % Sodium Chloride 250 ML 166.67 MG IV ×2 (08:11→20:36)
[2024-08-22] MEDS: predniSONE 20 MG TABLET 40 MG PO (09:45)
--- NOTE | 2024-08-22 10:19 | HO.PM.IMPN ---
Subjective Subjective Date of Service: 08/22/24 Interval History: dyspnea improved no cough I/O poorly recorded but pt states diuresing copiously Review of Systems Review of Systems: Yes all other systems are reviewed and are negative Physical Exam Vital Signs: Vital Signs: Last Vital Signs Temp 98 F 08/22/24 07:47 Pulse 67 08/22/24 07:47 Resp 16 08/22/24 07:47 BP 115/66 08/22/24 07:47 Pulse Ox 99 08/22/24 07:47 O2 Del Method Nasal Cannula 08/22/24 07:47 O2 Flow Rate 3.0 08/22/24 07:47 Oxygen Flow Rate 3 08/20/24 00:18 BMI result Body Mass Index 37.7 Gen: in no acute distress HEENT: sclera anicteric, moist mucus membranes Neck: supple Lungs: diminished throughout Heart: regular rate and rhythm, no murmurs Abd: soft, non-tender, non-distended Ext: no edema Skin: warm/well-perfused Neuro: alert and oriented x3, no focal findings Psych: appropriate affect Objective Data Active Medications Acetaminophen (Acetaminophen 325 Mg Tablet) 650 mg PO Q6H PRN PRN Reason: Pain, Mild (Pain Scale 1-3), fever or headache Albuterol/Ipratropium (Albuterol/Iprat 2.5/0.5mg 3 Ml Ampul.Neb) 3 ml INHALE RQ4H WHILE AWAKE REPLACED BY [facility] Last Admin: 08/22/24 07:30 Dose: 3 ml Documented By: ANGELICA Albuterol/Ipratropium (Albuterol/Iprat 2.5/0.5mg 3 Ml Ampul.Neb) 3 ml INHALE Q4H PRN PRN Reason: Wheezing Aripiprazole (Aripiprazole 10 Mg Tablet) 10 mg PO DAILY REPLACED BY [facility] Last Admin: 08/22/24 08:10 Dose: 10 mg Documented By: LEONARDO Aspirin (Aspirin Enteric Coated 81 Mg Tablet.) 81 mg PO DAILY REPLACED BY [facility] Last Admin: 08/22/24 08:10 Dose: 81 mg Documented By: LEONARDO Calcium Carbonate (Calcium Carbonate 750 Mg Tab.Chew) 750 mg PO Q4H PRN PRN Reason: Heartburn Cyclobenzaprine HCl (Cyclobenzaprine Hcl 5 Mg Tablet) 5 mg PO Q8H PRN PRN Reason: Muscle Pain Docusate Sodium (Docusate Sodium 100 Mg Capsule) 100 mg PO DAILY REPLACED BY [facility] Last Admin: 08/22/24 08:09 Dose: 100 mg Documented By: LEONARDO Enoxaparin Sodium (Enoxaparin Sodium 40 Mg/0.4 Ml Syringe) 40 mg SUBCUT Q24H REPLACED BY [facility] Last Admin: 08/22/24 08:11 Dose: 40 mg Documented By: LEONARDO Fluticasone Propionate (Fluticasone Propionate Nasal 16 Gm [place]) 1 spray NOSTRIL-B DAILY REPLACED BY [facility] Last Admin: 08/22/24 08:11 Dose: Not Given Documented By: LEONARDO Non-Admin Reason: med not available pharmacy notified Fluticasone/Vilanterol (Fluticasone/Vilanterol 200/25 Blst.W.Dev) 1 puff INHALE RDAILY REPLACED BY [facility] Last Admin: 08/22/24 07:30 Dose: 1 puff Documented By: ANGELICA Furosemide (Furosemide 20 Mg Tablet) 20 mg PO BID@0900,1800 REPLACED BY [facility]; Protocol Gabapentin (Gabapentin 100 Mg Capsule) 100 mg PO TID REPLACED BY [facility] Last Admin: 08/22/24 08:10 Dose: 100 mg Documented By: LEONARDO Doxycycline Hyclate 100 mg/ (Sodium Chloride) 250 mls @ 166.67 mls/hr IV BID REPLACED BY [facility] Last Infusion: 08/22/24 09:51 Dose: Infused Documented By: LEONARDO Lactulose (Lactulose 20 Gm/30 Ml Solution) 20 gm PO DAILY PRN PRN Reason: Constipation Lamotrigine (Lamotrigine 100 Mg Tablet) 200 mg PO DAILY REPLACED BY [facility] Last Admin: 08/22/24 08:10 Dose: 200 mg Documented By: LEONARDO Lamotrigine (Lamotrigine 100 Mg Tablet) 300 mg PO BEDTIME REPLACED BY [facility] Last Admin: 08/21/24 21:02 Dose: 300 mg Documented By: KASSANDRA Magnesium Hydroxide (Milk Of Magnesia 30 Ml Oral.Susp) 30 ml PO DAILY PRN PRN Reason: Constipation Melatonin (Melatonin 3 Mg Tablet) 6 mg PO BEDTIME PRN PRN Reason: Insomnia Metoprolol Succinate (Metoprolol Succinate Er 50 Mg Tab.Er.24h) 50 mg PO DAILY REPLACED BY [facility]; Protocol Last Admin: 08/22/24 08:09 Dose: 50 mg Documented By: LEONARDO Mirtazapine (Mirtazapine 15 Mg Tablet) 15 mg PO BEDTIME REPLACED BY [facility] Last Admin: 08/21/24 21:02 Dose: 15 mg Documented By: KASSANDRA Montelukast Sodium (Montelukast Sodium 10 Mg Tablet) 10 mg PO BEDTIME REPLACED BY [facility] Last Admin: 08/21/24 21:02 Dose: 10 mg Documented By: KASSANDRA Non-Formulary Medication (Theophylline) 200 mg PO BID REPLACED BY [facility] Omeprazole (Omeprazole 20 Mg Capsule.Dr) 20 mg PO DAILY@0630 REPLACED BY [facility] Last Admin: 08/22/24 06:08 Dose: 20 mg Documented By: KASSANDRA Ondansetron HCl (Ondansetron Hcl 4 Mg/2 Ml Vial) 4 mg IVPUSH Q8H PRN PRN Reason: Nausea and Vomiting Prednisone (Prednisone 20 Mg Tablet) 40 mg PO DAILY REPLACED BY [facility] Last Admin: 08/22/24 09:45 Dose: 40 mg Documented By: LEONARDO Salmeterol Xinafoate (Salmeterol Xinafoate 50 Mcg Blst.W.Dev) 1 puff INHALE BID REPLACED BY [facility] Last Admin: 08/22/24 07:30 Dose: 1 puff Documented By: ANGELICA Senna (Sennosides 8.6 Mg Tablet) 8.6 mg PO BEDTIME REPLACED BY [facility] Last Admin: 08/21/24 21:02 Dose: 8.6 mg Documented By: KASSANDRA Sodium Chloride (0.9 % Sodium Chloride Flush 3 Ml Syringe) 3 [facility] Last Admin: 08/22/24 08:10 Dose: 3 ml Documented By: LEONARDO Vilazodone HCl (Vilazodone Hcl 40 Mg Tablet) 40 mg PO DAILY REPLACED BY [facility] Last Admin: 08/22/24 08:10 Dose: 40 mg Documented By: LEONARDO Vitamin D (Cholecalciferol (Vitamin D3) 25 Mcg Tablet) 50 mcg PO DAILY REPLACED BY [facility] Last Admin: 08/22/24 08:10 Dose: 50 mcg Documented By: LEONARDO Labs 08/21/24 05:35 08/22/24 06:02 Labs: Laboratory Results - last 24 hr 08/20/24 08/22/24 08/22/24 17:27 06:02 06:12 VBG pH 7.31 L VBG pCO2 86 VBG pO2 30 VBG HCO3 44 H VBG O2 Saturation 41.0 VBG Base Excess 14.7 Anion Gap 11 L Estim Creat Clear Calc 51.5 Estimated GFR 52 Random Glucose 96 Calcium 8.7 D B-Natriuretic Peptide 112 H Respiratory Panel [place] See Note Adenovirus (Rapid PCR) Not Detected B.pert (TEM-PCR) Not Detected B.parapertussis DNA PCR Not Detected C. pneumoniae DNA (PCR) Not Detected Coronavirus OC43 (PCR) Not Detected Coronavirus HKU1 (PCR) Not Detected Coronavirus 229E (PCR) Not Detected Coronavirus NL63 (PCR) Not Detected Human Metapneumovir PCR Not Detected Influenza A (RT-PCR) Not Detected Influenza B (RT-PCR) Not Detected M. 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 + 3L O2 at rest/6L with activity, HTN, mood disorder, HFpEF presenting with dyspnea, admitted for COPD + CHF exac acute/chronic hypoxic/hypercapneic resp failure due to COPD exac - IV->PO steroids, doxycycline 08/20-, RPP negative, BiPAP at night, continue theophylline + home inhalers; appreciate Pulm consult acute/chronic HFpEF - got IV acetazolamide and also IV furosemide; appears euvolemic now; change to PO furosemide but bid; outpt Card f/u hyperNa - resolved HTN - continue metoprolol succinate bipolar depression - continue aripiprazole, lamotrigine, mirtazapine, vilazodone VTE ppx - enoxaparin dispo - plan IPR In my clinical judgment, the patient requires continued hospitalization for the following reasons: resp failure, placement Total time managing care of this patient today: 35 minutes. Quality Stroke Does the patient have a stroke diagnosis?: No VTE Prior VTE?: No VTE Risk Level:: Medical - moderate - high VTE Device Contraindication: Treatment Not Indicated VTE Drug Contraindication: N/A - Med Ordered
--- NOTE | 2024-08-22 10:56 | MHC.CM.PN ---
Patient not medically cleared for dc. Plan for dc tomorrow to [facility] tomorrow.
[2024-08-22] MEDS: Furosemide 20 MG TABLET PO (17:15)
[2024-08-22] MEDS: Mirtazapine 15 MG TABLET PO (20:35)
[2024-08-22] MEDS: Montelukast Sodium 10 MG TABLET PO (20:36)
[2024-08-22] MEDS: Sennosides 8.6 MG TABLET PO (20:36)
[2024-08-22] MEDS: lamoTRIgine 100 MG TABLET 300 MG PO (20:36)
[2024-08-23 04:00] VITALS: BP 132/70; PULSE 65; RESP 19; TEMP 36.1; O2SAT 96
[2024-08-23] MEDS: Omeprazole 20 MG CAPSULE.DR PO (06:36)
[2024-08-23 07:57] VITALS: BP 156/72; PULSE 63; RESP 20; TEMP 36.8; O2SAT 98
[2024-08-23] MEDS: predniSONE 20 MG TABLET 40 MG PO (08:15)
[2024-08-23] MEDS: Aspirin Enteric Coated 81 MG TABLET.DR PO (08:15)
[2024-08-23] MEDS: Vilazodone HCL 40 MG TABLET PO (08:15)
[2024-08-23] MEDS: Gabapentin 100 MG CAPSULE PO (08:15)
[2024-08-23] MEDS: ARIPiprazole 10 MG TABLET PO (08:15)
[2024-08-23] MEDS: lamoTRIgine 100 MG TABLET 200 MG PO (08:15)
[2024-08-23] MEDS: Docusate Sodium 100 MG CAPSULE PO (08:16)
[2024-08-23] MEDS: Cholecalciferol (Vitamin D3) 25 MCG TABLET 50 MCG PO (08:16)
[2024-08-23] MEDS: Furosemide 20 MG TABLET PO (08:16)
[2024-08-23] MEDS: Metoprolol Succinate ER 50 MG TAB.ER.24H PO (08:16)
[2024-08-23] MEDS: Enoxaparin Sodium 40 MG/0.4 ML SYRINGE SUBCUT (08:16)
[2024-08-23] MEDS: 0.9 % Sodium Chloride Flush 3 ML SYRINGE IVFLUSH (08:18)
[2024-08-23] MEDS: Doxycycline Hyclate 100 MG in 0.9 % Sodium Chloride 250 ML 166.67 MG IV (08:23)
[2024-08-23] MEDS: Salmeterol Xinafoate 50 MCG BLST.W.DEV 1 PUFF INHALE (08:47)
[2024-08-23] MEDS: Albuterol/Iprat 2.5/0.5MG 3 ML AMPUL.NEB INHALE ×2 (08:47→12:02)
[2024-08-23] MEDS: Fluticasone/Vilanterol 200/25 BLST.W.DEV 1 PUFF INHALE (08:47)
[2024-08-23 08:52] VITALS: PULSE 86; RESP 16; O2SAT 98
--- NOTE | 2024-08-23 10:34 | MHC.CM.PN ---
Per MD patient medically cleared for dc to inpatient pulm rehab. BLS transport scheduled for noon to [facility]. Patient, RN, aware. IMM delivered. Patient has trilogy at bedside and will bring to facility. Orders sent. Facility aware.
--- NOTE | 2024-08-23 11:51 | P.DS_ITS ---
DS: Providers Provider Date of Service: 08/23/24 Date of admission: 08/20/24 02:26 Date of discharge: 08/23/24 Primary care physician: Yann Manzanares MD Consults: 08/20/24 02:47 Consult to Pulmonology Routine Consulting Provider: [facility] Reason for consultation: COPD exacerbation with recurrent hospitalizations DS: Diagnosis Discharge Diagnosis (1) Pulmonary edema: Status: Acute (2) Acute on chronic respiratory failure with hypoxia and hypercapnia: Status: Acute (3) COPD exacerbation: Status: Acute (4) Acute on chronic heart failure with preserved ejection fraction (HFpEF): Status: Acute DS: Summary Hospital Course Hospital Course: From the history and physical by the admitting hospitalist, Ludivina Ware MD 08/20/24: This is a 69-year-old female with pertinent history of chronic hypoxic hypercapnic failure due to COPD on 3 L baseline oxygen at rest, 6 L during activity and BiPAP at night, hypertension, mood disorder, osteoporosis who presents to the emergency department for evaluation of dyspnea. Patient was recently admitted due to acute on chronic hypoxemic hypercapnic failure due to COPD exacerbation and discharged on 08/12. Patient states her symptoms started few days prior to presentation but worsened on the day of presentation. She states she is compliant with night BiPAP and also has been using BiPAP in the day due to dyspnea. Patient was satting % on home O2 and was sent to the ER for further evaluation. Compliant with home inhaler. Also has associated wheezing but no cough. No fever, chills, chest discomfort, palpitations, abdominal pain, changes in urinary or bowel habits. In the emergency department, pCO2 found to be elevated. Patient was given IV steroids and placed on BiPAP 69yo F with chronic hypoxic/hypercapneic resp failure on Trilogy ventilator + 3L O2 at rest/6L with activity, HTN, mood disorder, and HFpEF presenting with dyspnea and admitted for COPD + CHF [HFpEF] exacerbations. She was treated with IV, then PO steroids and doxycycline along with nebulized bronchodilators. Respiratory pathogen panel PCR negative. She was given BiPAP at night. She was diuresed with IV acetazolamide and IV furosemide. PO furosemide was changed from daily to bid. She improved and was assessed by PT and inpatient pulmonary rehabilitation was recommended. She was discharged on a predinsone taper and doxycycline, along with the increased dose of furosemide. BMP and magnesium should be repeated in 1 week. She should also establish cardiac care with [facility] in 2 weeks. Time Attestation Discharge Coordination Time (in mins): 45 Quality: Safe Use of Opioids Does Pt have an Active Cancer Diagnosis on the Problem List?: No Quality: Stroke Does the patient have a stroke diagnosis?: No Physical Exam Vital Signs: Vital Signs: Last Vital Signs Temp 98.3 F 08/23/24 07:57 Pulse 86 08/23/24 08:52 Resp 16 08/23/24 08:52 BP 156/72 H 08/23/24 07:57 Pulse Ox 98 08/23/24 07:57 O2 Del Method BiPAP 08/23/24 07:57 O2 Flow Rate 3 08/22/24 19:58 Oxygen Flow Rate 3 08/20/24 00:18 BMI result Body Mass Index 37.7 Gen: in no acute distress HEENT: sclera anicteric, moist mucus membranes Neck: supple Lungs: diminished throughout Heart: regular rate and rhythm, no murmurs Abd: soft, non-tender, non-distended Ext: no edema Skin: warm/well-perfused Neuro: alert and oriented x3, no focal findings Psych: appropriate affect DS: Data Data Completed and Pending Completed studies during hospitalization [Text1]: Laboratory Results WBC 8.8 X10*3/uL (4.8-10.8) 08/21/24 05:35 RBC 3.52 X10*6/uL (4.20-5.50) L 08/21/24 05:35 Hgb 10.4 g/dl (12.0-16.0) L 08/21/24 05:35 Hct 33.9 % (37.0-47.0) L 08/21/24 05:35 MCV 96.3 fL (80.0-98.0) 08/21/24 05:35 MCH 29.5 pg (27.0-33.0) 08/21/24 05:35 MCHC 30.7 g/dl (31.0-35.0) L 08/21/24 05:35 RDW 15.4 % (11.0-16.0) 08/21/24 05:35 Plt Count 320 X10*3/uL (160-400) 08/21/24 05:35 MPV 9.2 fL (9.4-12.3) L 08/21/24 05:35 Immature Gran % (Auto) 0.8 % (0.0-0.4) H 08/20/24 05:39 Neut % (Auto) 94.1 % (45-73) H 08/20/24 05:39 Lymph % (Auto) 3.7 % (20-40) L 08/20/24 05:39 [place] % (Auto) 1.0 % (2-11) L 08/20/24 05:39 Eos % (Auto) 0.0 % (0-4) 08/20/24 05:39 Baso % (Auto) 0.4 % (0-2) 08/20/24 05:39 Lymph # (Auto) 0.3 X10*3/uL (1.2-4.9) L 08/20/24 05:39 [place] # (Auto) 0.1 X10*3/uL (0.1-1.2) 08/20/24 05:39 Eos # (Auto) 0.0 X10*3/uL (0.0-0.4) 08/20/24 05:39 Baso # (Auto) 0.0 X10*3/uL (0.0-0.2) 08/20/24 05:39 Abs Immat Gran (auto) 0.06 X10*3/uL (0.00-0.03) H 08/20/24 05:39 Absolute Neuts (auto) 6.7 x10*3/uL (2.0-8.3) 08/20/24 05:39 Absolute Nucleated RBC 0.000 X10*3/uL (0.0-0.012) 08/21/24 05:35 Nucleated RBC % (auto) 0.0 /100WBC (0.0-0.2) 08/21/24 05:35 Smear Tech's Comments VERIFIED 08/20/24 05:39 VBG pH 7.31 (7.32-7.43) L 08/22/24 06:12 VBG pCO2 86 mmHg 08/22/24 06:12 VBG pO2 30 mmHg 08/22/24 06:12 VBG HCO3 44 mmol/L (22-26) H 08/22/24 06:12 VBG O2 Saturation 41.0 % 08/22/24 06:12 VBG Base Excess 14.7 mmol/L 08/22/24 06:12 Sodium 140 mmol/L (135-145) 08/22/24 06:02 Potassium 3.7 mmol/L (3.3-5.1) 08/22/24 06:02 Chloride 97 mmol/L (96-108) 08/22/24 06:02 Carbon Dioxide 36 mmol/L (22-29) H 08/22/24 06:02 Anion Gap 11 (12-20) L 08/22/24 06:02 BUN 26 mg/dL (9-16) H 08/22/24 06:02 Creatinine 1.04 mg/dL (0.5-1.4) 08/22/24 06:02 Estim Creat Clear Calc 51.5 08/22/24 06:02 Estimated GFR 52 08/22/24 06:02 Random Glucose 96 mg/dL (60-115) 08/22/24 06:02 Calcium 8.7 mg/dL (8.4-10.2) D 08/22/24 06:02 Total Bilirubin 0.3 mg/dL (0.0-1.0) 08/20/24 00:34 AST 19 U/L (5-31) 08/20/24 00:34 ALT 17 U/L (0-31) 08/20/24 00:34 Alkaline Phosphatase 71 U/L (39-117) 08/20/24 00:34 B-Natriuretic Peptide 112 pg/mL (<100) H 08/22/24 06:02 Total Protein 7.0 g/dL (6.5-8.0) 08/20/24 00:34 Albumin 4.1 g/dL (3.5-5.0) 08/20/24 00:34 Procalcitonin 0.03 ng/mL 08/20/24 05:39 Respiratory Panel [place] See Note 08/20/24 17:27 Adenovirus (Rapid PCR) Not Detected (Not Detect.) 08/20/24 17:27 B.pert (TEM-PCR) Not Detected (Not Detect.) 08/20/24 17:27 B.parapertussis DNA PCR Not Detected (Not Detect.) 08/20/24 17:27 C. pneumoniae DNA (PCR) Not Detected (Not Detect.) 08/20/24 17:27 Coronavirus OC43 (PCR) Not Detected (Not Detect.) 08/20/24 17:27 Coronavirus HKU1 (PCR) Not Detected (Not Detect.) 08/20/24 17:27 Coronavirus 229E (PCR) Not Detected (Not Detect.) 08/20/24 17:27 Coronavirus NL63 (PCR) Not Detected (Not Detect.) 08/20/24 17:27 Human Metapneumovir PCR Not Detected (Not Detect.) 08/20/24 17:27 Influenza A (RT-PCR) Not Detected (Not Detect.) 08/20/24 17:27 Influenza B (RT-PCR) Not Detected (Not Detect.) 08/20/24 17:27 M. pneumoniae (PCR) Not Detected (Not Detect.) 08/20/24 17:27 Parainfluenza 1 (PCR) Not Detected (Not Detect.) 08/20/24 17:27 Parainfluenza 2 (PCR) Not Detected (Not Detect.) 08/20/24 17:27 Parainfluenza 3 (PCR) Not Detected (Not Detect.) 08/20/24 17:27 Parainfluenza 4 (PCR) Not Detected (Not Detect.) 08/20/24 17:27 RSV (PCR) Not Detected (Not Detect.) 08/20/24 17:27 Entero/Rhino (PCR) Not Detected (Not Detect.) 08/20/24 17:27 SARS-CoV-2 RNA (RT-PCR) Not Detected (Not Detect.) 08/20/24 17:27 Impressions Chest X-Ray 08/20/24 00:10 IMPRESSION: Pulmonary emphysema. No acute pulmonary findings. Electronically signed by: Bipin Griggs MD 08/20/2024 01:00 AM EDT Discharge Plan Discharge Anticipated Discharge Date/Time: 08/23/24 11:44 Patient Disposition: Xfer SNF Discharge Diagnosis: COPD and CHF exacerbations Referrals: [facility] [Provider Group] - 2 Weeks [facility] [Outside] - 1 Day (short term rehab) Yann Manzanares MD [Primary Care Provider] - 1 Week Discharge Medications: New furosemide 20 mg Tablet 20 mg PO BID@0900,1800 Qty: 60 0RF Protocol: Hold for SBP< HOLD for SBP < : 90 Rx Instructions: increase from 20 mg daily prednisone 10 mg tablet See Rx Instructions .ROUTE .COMPLEX Qty: 15 0RF Rx Instructions: 30 mg daily x 2 days, then 20 mg daily x 2 days, then 10 mg daily x 2 days, then 5 mg daily x 2 days doxycycline monohydrate 100 mg tablet 100 mg PO BID Qty: 4 0RF Continued acetaminophen 500 mg Tablet 1,000 mg PO Q6H PRN (Reason: Pain) aspirin 81 mg Tablet,Delayed Release (Dr/Ec) 81 mg PO DAILY alendronate [Fosamax] 70 mg Tablet 70 mg PO DOMINGUEZ lamotrigine 150 mg Tablet 300 mg PO BEDTIME montelukast 10 mg Tablet 10 mg PO BEDTIME albuterol sulfate [Proventil HFA] 90 mcg/actuation Hfa Aerosol Inhaler 2 puff INHALATION QID PRN (Reason: Respiratory Distress) cholecalciferol (vitamin D3) [Vitamin D3] 50 mcg (2,000 unit) Capsule 50 mcg PO DAILY mirtazapine 15 mg tablet 15 mg PO BEDTIME metoprolol succinate 50 mg Tablet Extended Release 24 Hr 50 mg PO DAILY betamethasone dipropionate 0.05 % cream 1 appl topical Q12H PRN (Reason: Dermititis ) cyclobenzaprine 5 mg tablet 5 mg PO Q8H PRN (Reason: Muscle Pain) meloxicam 15 mg tablet 15 mg PO DAILY lactulose 10 gram/15 mL solution 30 ml PO DAILY PRN (Reason: Constipation) Rx Instructions: If no BM in 2 days fluocinolone acetonide oil [DermOtic Oil] 0.01 % Drops 4 drp OTIC (EARS) Q48H diclofenac sodium 1 % gel 1 g topical Q8H PRN (Reason: Pain) theophylline 200 mg tablet extended release 12 hr 200 mg PO BID docusate sodium 100 mg capsule 100 mg PO DAILY pantoprazole 40 mg tablet,delayed release (DR/EC) 40 mg PO DAILY@0630 fluticasone furoate-vilanterol [Breo Ellipta] 200-25 mcg/dose blister with device 1 inh INHALATION DAILY albuterol sulfate 2.5 mg /3 mL (0.083 %) solution for nebulization 2.5 mg inhalation Q6H PRN (Reason: wheezing) calcium carbonate-vitamin D3 [Oyster Shell Calcium-Vit D3] 500 mg-10 mcg (400 unit) Tablet 1 tab PO BID lamotrigine 200 mg Tablet 200 mg PO DAILY Serevent Diskus 50 mcg/dose Blister With Device 1 inh INHALATION BID mineral oil Oil 1 appl TOPICAL Q48H PRN (Reason: eczema) Rx Instructions: apply to both outer ears topically aripiprazole 10 mg tablet 10 mg PO DAILY omega 8-yeh-wpy-fish oil [Fish Oil] 1,000 mg (120 mg-180 mg) Capsule 1 cap PO BID sennosides [Senokot] 8.6 mg tablet 8.6 mg PO BEDTIME Rx Instructions: Hold for loose stools gabapentin 100 mg capsule 100 mg PO TID (DME) nebulizers Misc See Rx Instructions .Route Rx Instructions: As directed fluticasone propionate 50 mcg/actuation spray,suspension 1 spray intranasal DAILY vilazodone 40 mg tablet 40 mg PO DAILY (DME) Oxygen Home Use Kit See Rx Instructions .Route Rx Instructions: As directed Discontinued furosemide 20 mg tablet 20 mg PO DAILY Qty: 90 0RF Discharge Orders: Discharge Order (Routine); Ordered 08/23/24 Ordered By: Puja Goldsmith Diet: Low salt diet Activity on Discharge: As tolerated Stand Alone Forms: Patient Portal Discharge page Print Language: Hungarian Other Ambulatory Orders: Basic Metabolic Panel (Routine) Timeframe: 1 Week Facility: [facility] - Location: Laboratory Ordered By: Puja Goldsmith Magnesium (Routine) Timeframe: 1 Week Facility: [facility] - Location: Laboratory Ordered By: Puja Goldsmith Care Plan Goals: cardiopulmonary health Health Concerns: COPD and CHF exacerbations Plan of Treatment: transfer to in pulmonary rehab, anticipate length of stay less than 30 days doxycycline 100 mg twice daily x 2 days prednisone taper: 30 mg daily x 2 days, then 20 mg daily x 2 days, then 10 mg daily x 2 days, then 5 mg daily x 2 days Triology ventilator at night as per settings provided in attachment: Passive circuit, AVAPS mode, AVAPS rate 3, tidal volume 600, max pressure 28, IPAP max 30, iPAP min 15, EPAP max 12, EPAP min 8, RR 12, IT 1, trigger auto- track, rise time 1, fiO2 2 Lpm increase furosemide from 20 mg daily to 20 mg twice daily check BMP + magnesium in 1 week follow up with [facility] in 2 weeks Please follow up with your primary care doctor within 1 week of discharge from SNF. Return to the hospital if you experience recurrent or worsening symptoms. Assessment: See Discharge Summary.
[2024-08-23 12:03] VITALS: PULSE 75; RESP 18; O2SAT 95
== END 2024-08-23 14:08 | disposition skilled nursing facility (03) | DRG 190 ==
LOC: HO.ED 00:52 → HO.EDOVER 02:31 → HO.S3 20:30
PROVIDERS: Admitting Provider Student in an Organized Health Care Education/Training Program; Emergency Provider Internal Medicine; PCP Student in an Organized Health Care Education/Training Program; Visit Provider Family Medicine
DX: J44.1 Chronic obstructive pulmonary disease with (acute) exacerbation (principal); I50.33 Acute on chronic diastolic (congestive) heart failure; J96.21 Acute and chronic respiratory failure with hypoxia; J96.22 Acute and chronic respiratory failure with hypercapnia; E87.0 Hyperosmolality and hypernatremia; F31.9 Bipolar disorder, unspecified; E66.9 Obesity, unspecified; Z68.37 Body mass index [BMI] 37.0-37.9, adult; Z71.3 Dietary counseling and surveillance; I11.0 Hypertensive heart disease with heart failure; Z20.822 Contact with and (suspected) exposure to COVID-19; Z99.81 Dependence on supplemental oxygen; Z87.891 Personal history of nicotine dependence; Z79.51 Long term (current) use of inhaled steroids; Z79.899 Other long term (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 therapy
CPT/HCPCS: 36415; 71045; 80048; 80053; 82803; 83880; 84145; 85025; 85027; 87633; 93005; 94640; 94660; 97110; 97116; 97162; 99285; J1650; J1940; J2919

== ENCOUNTER → 2024-08-20 02:26 | Outpatient (BNV) | payer MEDICARE, MEDICAID, SELFPAY | PROVIDERS: Admitting Provider Student in an Organized Health Care Education/Training Program; Emergency Provider Internal Medicine; PCP Student in an Organized Health Care Education/Training Program; Visit Provider Internal Medicine Pulmonary Disease | DX: J44.9 Chronic obstructive pulmonary disease, unspecified (principal); J96.21 Acute and chronic respiratory failure with hypoxia; J81.1 Chronic pulmonary edema | CPT/HCPCS: 99222 ==

== ENCOUNTER → 2024-08-20 02:26 | Outpatient (BNV) | payer MEDICARE, MEDICAID, SELFPAY | PROVIDERS: Admitting Provider Student in an Organized Health Care Education/Training Program; Emergency Provider Internal Medicine; PCP Student in an Organized Health Care Education/Training Program; Visit Provider Student in an Organized Health Care Education/Training Program | DX: J44.1 Chronic obstructive pulmonary disease with (acute) exacerbation (principal) | CPT/HCPCS: 99223; 99232; 99239; 99499 ==

== ENCOUNTER 2024-09-13 09:24 | Outpatient (AMB) | payer MEDICARE, MEDICAID, SELFPAY ==
[2024-09-13 09:25] VITALS: BMI 37.8
--- NOTE | 2024-09-13 09:25 | MHC.OFFVIS ---
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 She 1st did require a tracheostomy in the past and she had a prolonged hospitalization which she was able to be decannulated. She was then placed on noninvasive ventilation. The patient has been inconsistent with the usage. In January of this year the patient was admitted to the hospital with acute on chronic hypercarbic respiratory failure where her pCO2 was about 118 mmHg.. The patient was placed on noninvasive ventilation and her pH normalize and her average pCO2 was between 60-70. She was discharged to use her trilogy at home. At home she is still struggling with the noninvasive ventilator. She has a hard time getting used to it. Her [employer] will be performing overnight oximetry with an end-tidal CO2 to measure her see you to into appropriately adjust her noninvasive ventilator. She also has made mentioning that she has been more short of breath and she has had more hypoxia. In the office we did perform a 6 minutes walk test and she did require 2 L nasal cannula to maintain her pulse ox above 90%. Therefore, she will be using 3 L instead of to with activity and also with sleep. 04/15/2023 the patient is here for pulmonary follow-up visit. She still residing at the [facility]. She is using her trilogy noninvasive ventilator every night. However, she has been using more recently because she ended up in the hospital. She was having chest pressure sensation and dizziness. During the hospitalization at [facility] the patient states that she had an ABG done demonstrating a pCO2 58 and per report was okay. Therefore, will hold off on doing an ABG today. The patient has been fairly relatively well from a respiratory status. She does complaint of heaviness of the chest. On examination she is very diminished. Therefore likely has significant air trapping hyperinflation them every resulting in some chest pressure sensation. I did recommend she start using the trilogy with a sip and puff during the daytime to help her with the air trapping. The patient has also gained weight and that is also going to contribute to additional respiratory symptoms. The patient needs to start working on weight management with the help of the services provided. The patient is using her diuretics with good effect. No significant edema at this time. It is not clear if she is using the theophylline. She has been on multiple medications and has got to multiple institutions so therefore it is hard to know if those removed and if it was stopped for particular reason. We should recheck her theophylline levels if she is on theophylline. Otherwise restart the theophylline if she is off it and then recheck levels. She should stay within the low therapeutic range to help her with her severe COPD. Patient is using her oxygen at 3 L continues with good effect. Again, I reached out to the [employer], [employer], to rete she had uses sip and puff device that she can use during the daytime 06/17/2023 the patient is here for pulmonary follow-up visit. The patient has been doing well. She is looking now to move to a halfway. in the meantime she is using her noninvasive ventilator. The noninvasive ventilator has been affecting beneficial. We did have her undergo a venous blood gas in appears that her pH is stable. She understands that if she does move to a halfway she went to find a way to make sure that she continues use her noninvasive ventilator as prescribed. She continues on respiratory therapy. She continues oxygen supplementation at 3 L could would response. 09/20/2023 the patient has a telehealth visit today. Unfortunately she could not make it in from her residence. She has been more depressed lately. She has recently found out that she lost the services from her [facility]. There been with her for many years. In addition to that the patient has not been using her Trelegy ventilator. She is try to find out how long she can go without it. She was wondering if she can have blood work to see how well her CO2 is while she is not using it. However, I encouraged her to use it since we know that her baseline CO2 is already elevated and by using the ventilator she has better reserved in case she develops an exacerbation or an acute illness. The patient will start using her ventilator at nighttime. I did put him for blood work and she can always have the blood work done here or she can find out another means of doing a. But getting a blood gas will be difficult to do otherwise. The patient did recently have a respiratory illness with a virus. Was not COVID. She was not giving any prednisone or antibiotics. Her cough is not too bad. If the cough worsens with worsening congestion then using a antibiotic to minimize on the postviral bacterial infections would be reasonable. 12/23/2023 the patient is here for a pulmonary follow-up visit. Since we last spoke the patient did have a fall on her [place] [facility]. She fractured multiple ribs and was admitted to [facility] with acute on chronic hypercarbic respiratory failure. She was placed on BiPAP and was able to stabilize. She did not require invasive ventilation. The patient had not been using her noninvasive ventilator at the [place] [facility]. This is unfortunate. She understands the with her condition she relies on this therapy. The patient has been using now regularly since she was discharged from the hospital. She is looking to be placed in a halfway. Therefore, she is making the arrangements. We did have her undergo a venous blood gas today and her acid-base status is stable and pCO2 is back to her baseline. Her bicarbonate always will be elevated to try to compensate for the hypercarbia and right now is at 37. she does continue to use her respiratory therapy as prescribed. She is also using oxygen continuously throughout the day with good effect. Once the patient is out of the [place] [facility] to a halfway will see about getting pulmonary function studies and starting outpatient pulmonary rehabilitation. Also to note while she was at [facility] she did have a CT scan of the chest that was personally by me. She had multiple rib fractures on the left 1 which was displaced. Also has small subcentimeter pulmonary nodule that will follow-up in a year's time. 02/21/2024 the patient is here for pulmonary follow-up visit. The patient overall has been doing well. She did move out of the [place] [facility] in currently in a halfway. She is getting a lot of support. She is taking all her medications. Although, the theophylline 400 mg is not available. I will try sending her a different does see that was available and also will check theophylline levels. The patient has been using her noninvasive ventilator at nighttime. The therapy has been affecting beneficial. We did have her get blood work and it appears that her bicarb is down to 32 which is very encouraging. The patient also has been using her oxygen at 3 L continues will keep a go above 88%. The patient is able to increase it to 4 L if her oxygen is dropping below 88%. Will go ahead and request pulmonary function studies and plan for pulmonary rehabilitation at this time. Will follow-up in 3 months or sooner if any new issues arise. 05/24/2024 the patient is here for a pulmonary follow-up visit. She was recently at [facility]. There was an issue with her oxygen. Now she is back to her halfway. the having hard time regulating her oxygen. We did have her come in for 6 minute walk test. The patient needs 6 L of oxygen with activity and at least 2 L at rest. Although typically she needs more than 2 to keep her pulse ox above 90%. We did review her CT scan of the chest that she had while at [facility]. She has extensive emphysema which explains her very labile oxygen requirements. In addition to that she does have some pulmonary nodules that appear to have increased in size primarily in the left hemithorax. She will need a repeat CT scan in the next 3 months. She has minimal reserve. We did look at her previous PFTs demonstrating very severe COPD and severe diffusion impairment. however, the patient has been fairly well although she has had although severe disease. She has been using her noninvasive ventilator at nighttime. At least 6 hours. We did have her go for blood work including a venous gas demonstrating appears due to a baseline 61 mm of Hg. The patient does have some lower extremity edema. She will benefit from additional diuresis. In addition to that she is having increased wheezing chest tightness and cough. Therefore will send her a prednisone taper and also start an antibiotic. This will be to treat her for COPD exacerbation. She has participating in the pulmonary rehabilitation. She has fine the very affecting beneficial. She will continue for now. 07/06/2024 the patient is here for a pulmonary follow-up visit. She has been in an out of hospital. She has been trying to use her noninvasive ventilator more regularly. She understands it is a necessity for her to use it at least every night. She also continues with respiratory therapy. She has been responding well to the oxygen supplementation. Last blood gas was back the end of May demonstrating a pCO2 around 70 which is close to her baseline. She continues with respiratory therapy with good effect. Appears to have increasing lower extremity edema. Likely secondary to a component I will call pulmonale. Needs to continue with a low sodium diet and diuresis. CXR from 06/21/23 personally reviewed by me without any acute changes. 09/13/2024 the patient has a telehealth visit today. She is status post couple hospitalizations. Now she is at rehab and this is a telehealth. The patient initially was admitted to [facility] back at the end of June with acute on chronic respiratory failure. She was diagnosed with COVID a. During that admission she did have a CT a that I did evaluate. She did have an irregular nodular density in the left upper lobe likely infectious process although since his new and she is high risk for cancer we can not rule out malignancy. She was treated and then subsequently discharged back to her halfway. Subsequently after that she went to [facility]. The details are not available but she likely had a tachyarrhythmia. She did require cardioversion. Afterwards the patient was transferred to [facility] which is currently getting rehabilitation. She feels weak. She has a hard time walking. Her oxygen requirements are still about the same 3 L at rest and 6 L with activity. She is also having issues with her noninvasive ventilator which she is waking up short of breath. Therefore, will have her have a repeat 6 minute walk test while she is there she should also continue with multi disciplinary therapies in addition to that will talk to respiratory there to see if they can tweak her ventilator to a higher pressure to help her with those difficult times. The patient plans to go back to her halfway. [facility] Medical History Rib fractures Pulmonary nodule Tubular adenoma of colon (~2006) Osteopenia (~2012) Bronchopneumonia Chest pain Chronic respiratory alkalosis ILD (interstitial lung disease) CO2 retention Acute on chronic respiratory failure with hypoxia and hypercapnia Bipolar depression Eczema Limb swelling Insomnia Bronchitis Vasomotor rhinitis COPD (chronic obstructive pulmonary disease) Chronic respiratory failure Fall Acute metabolic encephalopathy Acute and chronic respiratory failure with hypercapnia Surgical History History of carpal tunnel surgery (~2000) History of ventral hernia repair (~2003) History of left inguinal hernia repair (~1995) History of tracheostomy (~2017) History of cataract surgery (~2019) History of colonoscopy Family History Other Hypertension Social History Household Members: Other Household Members Other:: halfway Housing: Other Housing Other:: halfway Are you a primary director of primary care to a significant other at home: No Do you presently have visiting nurse or other home services: Yes (halfway services) Alcohol intake: unknown Patient Tobacco Use Status: Former Tobacco user Tobacco use type: Cigarette Years Smoked: 20+ years e-Cigarette/Vaping Use: Never Used Second Hand Smoke Exposure: No Advance Directives Date on File: 11/30/21 service: No Current occupational status: disabled Review of Systems Const Reports fatigue, Denies night sweats and Reports weight gain ENT Denies change in voice, Denies lip swelling, Denies mouth pain, Reports nasal congestion, Reports nasal discharge and Denies tongue swelling Card Denies chest pain, Reports pedal edema, Denies leg edema, Reports dyspnea and Reports dyspnea on exertion Resp Denies change in phlegm color, Denies chest congestion, Reports cough, Reports dyspnea, Reports dyspnea on exertion and Reports wheezing GI Denies abdominal pain Musc Denies no additional complaints, Reports abnormal gait and Reports muscle weakness Skin/Breast Reports erythema and Reports skin swelling Neuro Denies Neuro-related abnormal movements, Reports abnormal gait, Reports memory loss and Reports tremor(s) Psych Reports depression and Reports memory loss Endo Reports fatigue Gerson/Lymph Denies easy bleeding and Denies lymphadenopathy Aller/Immun Denies lip swelling, Denies tongue swelling and Reports wheezing Physical Exam Vital Signs: BMI result Body Mass Index 37.8 Const General: comfortable Orientation/consciousness: patient oriented x3 Resp Effort & Inspection: normal respiratory effort and able to speak in complete sentences Neuro General: patient oriented x3 Telehealth Telehealth Telehealth Platform: Telephone Location of provider rendering services: practice address Location of patient: address on file Patient Identification confirmed using: Name, : Yes Telehealth method: voice only Patient verbally consented to treatment: Yes Patient verbally consented to billing insurance company: Yes Patient informed of any privacy concerns related to visit: Yes Results Reviewed Results Reviewed: Assessment & Plan Assessment & Plan (1) COPD (chronic obstructive pulmonary disease): Code(s): J44.9 - Chronic obstructive pulmonary disease, unspecified Category: Medical Qualifiers: COPD type: emphysema Emphysema type: centrilobular Qualified Code(s): J43.2 - Centrilobular emphysema (2) Chronic respiratory failure: Code(s): J96.10 - Chronic respiratory failure, unspecified whether with hypoxia or hypercapnia Category: Medical Qualifiers: Respiratory failure complication: hypoxia and hypercapnia Qualified Code(s): J96.11 - Chronic respiratory failure with hypoxia; J96.12 - Chronic respiratory failure with hypercapnia (3) Insomnia: Code(s): G47.00 - Insomnia, unspecified Category: Medical Qualifiers: Insomnia type: primary Qualified Code(s): F51.01 - Primary insomnia (4) Pulmonary nodule: Code(s): R91.1 - Solitary pulmonary nodule Category: Medical (5) Respiratory failure: Code(s): J96.90 - Respiratory failure, unspecified, unspecified whether with hypoxia or hypercapnia Category: Medical Qualifiers: Chronicity: chronic Respiratory failure complication: hypoxia and hypercapnia Qualified Code(s): J96.11 - Chronic respiratory failure with hypoxia; J96.12 - Chronic respiratory failure with hypercapnia Plan continue nighttime noninvasive ventilator use. Current setting seem to be appropriate, AVAPSE while sleeping, will request adjustment continue Breo continue Incruse continue respiratory therapy oxygen at 3 liters/minute at rest and 6L/minute with activity, will repeat 6MWT while at rehab weight management prednisone taper continue in pulmonary rehab Will need a f/u CT chest in 3 months F/U 2 months Coding Level of Care Code Tele Est Pt Level 4 (73251) Complex EM visit Add On G2211 Diagnoses Centrilobular emphysema J43.2 COPD type: emphysema Emphysema type: centrilobular Chronic respiratory failure with hypoxia and hypercapnia J96.11; J96.12 Respiratory failure complication: hypoxia and hypercapnia Primary insomnia F51.01 Insomnia type: primary Pulmonary nodule R91.1 Chronic respiratory failure with hypoxia and hypercapnia J96.11; J96.12 Chronicity: chronic Respiratory failure complication: hypoxia and hypercapnia Time Spent (min) 17
== END 2024-09-13 10:03 | disposition home or self-care (01) ==
LOC: HO.HPS 09:24
PROVIDERS: PCP Student in an Organized Health Care Education/Training Program; Visit Provider Hospitalist
DX: J43.2 Centrilobular emphysema (principal); J96.11 Chronic respiratory failure with hypoxia; J96.12 Chronic respiratory failure with hypercapnia; F51.01 Primary insomnia; R91.1 Solitary pulmonary nodule
CPT/HCPCS: 99442

== ENCOUNTER → 2024-09-13 09:24 | Outpatient (BNVA) | payer MEDICARE, MEDICAID, SELFPAY | PROVIDERS: PCP Student in an Organized Health Care Education/Training Program; Visit Provider Hospitalist ==

== ENCOUNTER 2024-09-26 10:27 | Inpatient (IN) | payer MEDICARE, MEDICAID, SELFPAY ==
[2024-09-26] VITALS (14 sets, daily range): BP systolic 101–154; BP diastolic 44–79; PULSE 69–89; RESP 15–30; TEMP 36.4–36.8; O2SAT 88–100; BMI 33.7; BMI 33.9
--- NOTE | ~2024-09-26 | XR_ITS ---
EXAMINATION: XR CHEST CLINICAL INFORMATION: Shortness of breath COMPARISON: None available. TECHNIQUE: Frontal view of the chest was obtained. FINDINGS: No pneumothorax seen. Hilar regions and pulmonary vascularity appear to be stable. Patchy increased opacities seen toward the peripheral bases could be related to chronic scarring/atelectasis although superimposed infiltrates are considered. There are old healed left-sided rib fractures. Small nodular opacities superimposed on the left upper lobe slightly more evident since the previous evaluation and could be related to nodular infiltrates. XR/XR chest 1V IMPRESSION: 1. Patchy increased opacities toward the peripheral bases could be related to chronic scarring/atelectasis although superimposed infiltrates are considered. 2. Small nodular opacities superimposed on the left upper lobe slightly more evident since the previous evaluation and could be related to nodular infiltrates. Electronically signed by: Wally Amaya MD 09/26/2024 11:41 AM EDT
--- NOTE | ~2024-09-26 | XR_ITS ---
EXAMINATION: XR CHEST CLINICAL INFORMATION: hypoxia COMPARISON: September 26, 2024 TECHNIQUE: Frontal view of the chest was obtained. FINDINGS: Prominence of the interstitial lung markings. Pulmonary reticular pattern. Haziness in the left lower hemithorax and blunting of the phrenic angle. Cardiac mediastinal silhouette size is normal. Calcified plaque or scars. Multilevel thoracic spondylosis. No pneumothorax. Old traumatic deformities in the lateral aspect of the rates left hemithorax.. XR/XR chest 1V IMPRESSION: Pulmonary edema, mild and left-sided pleural effusion, moderate volume. Overall slightly improved since prior exam. Superimposed airspace disease in the lingula/left lung base cannot be excluded. Electronically signed by: Lamin Polk MD 09/27/2024 10:00 AM EDT
--- NOTE | 2024-09-26 10:35 | ECG_ITS ---
Test Reason : DYSPNEA Blood Pressure : / mmHG Vent. Rate : 072 BPM Atrial Rate : 072 BPM P-R Int : 150 ms QRS Dur : 078 ms QT Int : 356 ms P-R-T Axes : 003 -06 -27 degrees QTc Int : 389 ms Artifact in tracing Normal sinus rhythm cannot exclude old Inferior infarct , age undetermined - could be normal variant Borderline ECG When compared with ECG of 20-AUG-2024 00:10, No significant changes seen Referred By: Megha Espinosa Electronically Signed By:JOYCE CEBALLOS
--- NOTE | 2024-09-26 10:38 | ED_ITS ---
HPI - SOB/Dyspnea General Chief Complaint: Dyspnea Stated Complaint: SOB, 90% HOME O2,DUONEB GIVEN,FROM [facility] PER EMS Time Seen by Provider: 09/26/24 10:37 Source: patient Mode of arrival: EMS Limitations: no limitations History of Present Illness ED Provider: Dr. Kash Hutchinson HPI Narrative: 69-year-old female with pertinent history of chronic hypoxic hypercapnic failure due to COPD on 3 L baseline oxygen at rest, 6 L during activity, BiPAP at night, hypertension, congestive heart failure, mood disorder, osteoporosis who presents to the emergency department shortness of breath x2 days. Patient states she was feeling short of breath yesterday and the symptoms got progressively worse. She states she had increased her oxygen to 4 L this morning with no improvement her symptoms. She also gave herself a nebulizer this morning with no improvement therefore she called 911. Paramedics report that initially on 4 L she was 90%. In route to the hospitalist she was given a DuoNeb in her O2 saturation dropped down the 70%. Here in the emergency department on 4 L of oxygen via nasal cannula O2 saturation was 57%. Patient was placed on an OxyMask at 15 liters/minute O2 saturation is 96%. Patient denied fever, chills, cough. She denied nausea, vomiting, diarrhea. She denied myalgias arthralgias. Patient did notice increased swelling of her lower extremities over the last several days. Patient was recently hospitalized from 09/19/2026 until 09/22/2024 with discharge nice in his of acute on chronic respiratory failure with hypoxia and hypercapnia, COPD exacerbation and acute on chronic heart failure with preserved ejection fraction. Patient was treated with IV and p.o. steroids, doxycycline, nebulizers, and diuresed with IV furosemide and acetazolamide Related Data Home Medications ?Medication ?Instructions ?Recorded ?Confirmed acetaminophen 500 mg tablet 1,000 mg PO Q6H PRN Pain 02/09/21 08/20/24 albuterol sulfate 90 mcg/actuation 2 puff inhalation QID PRN 02/09/21 08/20/24 aerosol inhaler (Proventil HFA) Respiratory Distress alendronate 70 mg tablet (Fosamax) 70 mg PO DOMINGUEZ 02/09/21 08/20/24 aspirin 81 mg tablet,delayed 81 mg PO DAILY 02/09/21 08/20/24 release cholecalciferol (vitamin D3) 50 50 mcg PO DAILY 02/09/21 08/20/24 mcg (2,000 unit) capsule (Vitamin D3) lamotrigine 150 mg tablet 300 mg PO BEDTIME 02/09/21 08/20/24 montelukast 10 mg tablet 10 mg PO BEDTIME 02/09/21 08/20/24 mirtazapine 15 mg tablet 15 mg PO BEDTIME 09/10/21 08/20/24 sennosides 8.6 mg tablet (Senokot) 8.6 mg PO BEDTIME 09/10/21 08/20/24 metoprolol succinate 50 mg 50 mg PO DAILY 11/18/21 08/20/24 tablet,extended release 24 hr Oxygen Home Use 04/15/23 05/17/24 fluticasone propionate 50 1 spray intranasal DAILY Allergies 04/15/23 08/20/24 mcg/actuation nasal spray,suspension nebulizers 04/15/23 05/17/24 vilazodone 40 mg tablet 40 mg PO DAILY 04/15/23 08/20/24 gabapentin 100 mg capsule 100 mg PO TID 09/20/23 08/20/24 fluticasone furoate 200 1 inh inhalation DAILY SOB 06/21/24 08/20/24 mcg-vilanterol 25 mcg/dose inhalation powder (Breo Ellipta) pantoprazole 40 mg tablet,delayed 40 mg PO DAILY@0630 06/21/24 08/20/24 release betamethasone dipropionate 0.05 % 1 appl topical Q12H PRN Dermititis 07/27/24 08/20/24 topical cream cyclobenzaprine 5 mg tablet 5 mg PO Q8H PRN Muscle Pain 07/27/24 08/20/24 diclofenac sodium 1 % topical gel 1 g topical Q8H PRN Pain 07/27/24 08/20/24 docusate sodium 100 mg capsule 100 mg PO DAILY Constipation 07/27/24 08/20/24 fluocinolone acetonide oil 0.01 % 4 drp otic (ears) Q48H 07/27/24 08/20/24 ear drops (DermOtic Oil) lactulose 10 gram/15 mL oral 30 ml PO DAILY PRN Constipation 07/27/24 08/20/24 solution meloxicam 15 mg tablet 15 mg PO DAILY 07/27/24 08/20/24 theophylline 200 mg 200 mg PO BID 07/27/24 08/20/24 tablet,extended release,12 hr albuterol sulfate 2.5 mg/3 mL 2.5 mg inhalation Q6H PRN wheezing 08/20/24 08/20/24 (0.083 %) solution for nebulization aripiprazole 10 mg tablet 10 mg PO DAILY 08/20/24 08/20/24 calcium carbonate 500 mg-vitamin 1 tab PO BID 08/20/24 08/20/24 D3 10 mcg (400 unit) tablet (Oyster Shell Calcium-Vitamin D3) lamotrigine 200 mg tablet 200 mg PO DAILY 08/20/24 08/20/24 mineral oil 1 appl topical Q48H PRN eczema 08/20/24 08/20/24 omega 9-vcu-ovi-fish oil 1,000 mg 1 cap PO BID 08/20/24 08/20/24 (120 mg-180 mg) capsule (Fish Oil) salmeterol 50 mcg/dose blister 1 inh inhalation BID 08/20/24 08/20/24 powder for inhalation (Serevent Diskus) Previous Rx's ?Medication ?Instructions ?Recorded doxycycline monohydrate 100 mg 100 mg PO BID #4 tabs 08/23/24 tablet furosemide 20 mg tablet 20 mg PO BID@0900,1800 #60 tabs 08/23/24 prednisone 10 mg tablet See Rx Instructions .Route 08/23/24 .COMPLEX #15 tabs Allergies Allergy/AdvReac Type Severity Reaction Status Date / Time codeine [Codeine] Allergy Intermediate RESTLESS/RA Verified 09/26/24 10:45 SH haloperidol [Haldol] Allergy Intermediate Palpitation Verified 09/26/24 10:45 s Sulfa (Sulfonamide Allergy Intermediate HIVES Verified 09/13/24 09:25 Antibiotics) Review of Systems 2 Review of Systems: Yes all other systems are reviewed and are negative [facility] Past Medical History [facility] Narrative: Social history: She denies tobacco, alcohol and drug use Medical History Rib fractures Pulmonary nodule Tubular adenoma of colon (~2006) Osteopenia (~2012) Bronchopneumonia Chest pain Chronic respiratory alkalosis ILD (interstitial lung disease) CO2 retention Acute on chronic respiratory failure with hypoxia and hypercapnia Bipolar depression Eczema Limb swelling Insomnia Bronchitis Vasomotor rhinitis COPD (chronic obstructive pulmonary disease) Chronic respiratory failure Fall Acute metabolic encephalopathy Acute and chronic respiratory failure with hypercapnia Surgical History History of carpal tunnel surgery (~2000) History of ventral hernia repair (~2003) History of left inguinal hernia repair (~1995) History of tracheostomy (~2016) History of cataract surgery (~2018) History of colonoscopy Family History Family History Other Hypertension Social History Social History Household Members: Other Household Members Other:: shelter Housing: Other Housing Other:: shelter Are you a primary after school caregiver to a significant other at home: No Do you presently have visiting nurse or other home services: Yes (shelter services) Alcohol intake: unknown Patient Tobacco Use Status: Former Tobacco user Tobacco use type: Cigarette Years Smoked: 20+ years e-Cigarette/Vaping Use: Never Used Second Hand Smoke Exposure: No Advance Directives: Yes Advance Directives on File: Yes Advance Directives Date on File: 11/30/21 Do you have a plan to hurt others: No Plan service: No Current occupational status: disabled Physical Exam 2 Vital Signs: Vital Signs: Last Vital Signs Temp 97.9 F 09/26/24 11:53 Pulse 75 09/26/24 11:53 Resp 18 09/26/24 11:53 BP 149/72 H 09/26/24 12:56 Pulse Ox 100 09/26/24 11:53 O2 Del Method Room Air 09/26/24 11:53 Oxygen Flow Rate 15 09/26/24 10:37 BMI result Body Mass Index 33.7 Exam: General: Awake, alert, tachypneic and dyspneic on oxygen via OxyMask Head: Normocephalic, atraumatic EENT: PERRL, Lids normal, sclera normal, conjunctiva normal, nose normal , ears normal, throat without erythema or exudates Neck: Supple, no adenopathy Lung: Diminished breath sounds bilaterally with poor inspiratory and expiratory flow, diffuse wheezing, no rales or rhonchi Chest: symmetric movement, nontender Heart: regular rate and rhythm, normal S1, S2 no murmurs or rubs Abdomen: soft, non-tender, nondistended, normal bowel sounds Back: no vertebral tenderness, no CVAT Extremities: no deformities, moves all extremities symmetrically, 1+ pitting edema bilaterally symmetric Neuro: Awake, alert, oriented, normal speech, cranial nerves intact, moves all extremities symmetrically Psych: Pleasant, cooperative Medications Administered Discontinued Medications Generic Name Dose Route Start Last Admin Trade Name Ziaq PRN Reason Stop Dose Admin Albuterol Sulfate 5 mg/ 0 mg 09/26/24 11:15 09/26/24 11:28 Albuterol/Ipratropium 3 ml INHALE 09/26/24 11:16 1 each ONCE ONE Administration Furosemide 40 mg 09/26/24 10:57 09/26/24 11:09 Furosemide 40 Mg/4 Ml Vial IVPUSH 09/26/24 10:58 40 mg STAT STA Administration Protocol Furosemide 40 mg 09/26/24 12:47 09/26/24 12:56 Furosemide 40 Mg/4 Ml Vial IVPUSH 09/26/24 12:48 40 mg STAT STA Administration Protocol Methylprednisolone Sodium Succinate 125 mg 09/26/24 10:57 09/26/24 11:09 Methylprednisolone Sod Succ 125 Mg/2 Ml Vial IVPUSH 09/26/24 10:58 125 mg ONCE ONE Administration Medical Decision Making Medical Decision Making MDM Narrative: 69-year-old female with pertinent history of chronic hypoxic hypercapnic failure due to COPD on 3 L baseline oxygen at rest, 6 L during activity, BiPAP at night, hypertension, congestive heart failure, mood disorder, osteoporosis who presents to the emergency department shortness of breath x2 days getting progressively worse today. Patient treated herself with a nebulizer at home with no relief. Patient was hypoxic in the emergency department with an O2 saturation of 57% on 4 L of oxygen and improved to 92% on OxyMask 15 L/minute. Patient denied fever, chills, cough or chest pain. She did note increased peripheral edema over the last several days. Patient was recently hospitalized from 09/19/2024 until 09/22/2024 for COPD exacerbation, CHF exacerbation. Differential diagnosis: ?Includes but is not limited to COPD exacerbation, pneumonia, congestive heart failure, anemia, electrolyte abnormalities Course: 12:55 The patient's chest x-ray is consistent with congestive heart failure and she does have an elevated BNP above her baseline. She was treated with Lasix 40 mg IV and diuresed 400 cc of urine. I attempted to take the patient off BiPAP but she was still hypoxic. The patient was given a 2nd dose of Lasix 40 mg IV for further diuresis to see if this improves her hypoxia. Patient was placed back on BiPAP. The patient states that she has a Flor ventilator machine and was advised by her eviction specialist to use the ventilator later for at least 10 hours a day. She states that even after he was in the ventilator for most of the day she still gets hypoxic when she removes herself from the Flor ventilator. 13:19 I will discuss admission over tiger text with the covering hospitalist, Dr. Montiel patient will be admitted to the telemetry unit for further management. Admission/Observation Consideration of admission/observation: Escalation of care including admission/observation considered (Yes) Consult Healthcare Provider Management of the patient was discussed with: Hospitalist Lab Data MDM Lab Attestation statement: I reviewed the patient's lab results. My interpretation patient's laboratory evaluation is as follows: Normocytic anemia with an H&H of 8.9 and 29.0-this is below her baseline of 10.4 and 33.9 on 08/21/2024. PT/INR were elevated 17.2 and 1.5. PTT is elevated 40.6. Patient's ABG and VBG are consistent with respiratory alkalosis with compensation and hypoxia. CMP was normal. High sensitive troponin I was detectable but not elevated at 4.5. BNP was elevated 348 this is well above her baseline. COVID-19, RSV and influenza were negative 09/26/24 10:43 09/26/24 10:42 Labs: Lab Results 09/26/24 09/26/24 09/26/24 Range/Units 10:37 10:40 10:42 WBC (4.8-10.8) X10*3/uL RBC (4.20-5.50) X10*6/uL Hgb (12.0-16.0) g/dl Hct (37.0-47.0) % MCV (80.0-98.0) fL MCH (27.0-33.0) pg MCHC (31.0-35.0) g/dl RDW (11.0-16.0) % Plt Count (160-400) X10*3/uL MPV (9.4-12.3) fL Immature Gran % (Auto) (0.0-0.4) % Neut % (Auto) (45-73) % Lymph % (Auto) (20-40) % Banks % (Auto) (2-11) % Eos % (Auto) (0-4) % Baso % (Auto) (0-2) % Lymph # (Auto) (1.2-4.9) X10*3/uL Banks # (Auto) (0.1-1.2) X10*3/uL Eos # (Auto) (0.0-0.4) X10*3/uL Baso # (Auto) (0.0-0.2) X10*3/uL Abs Immat Gran (auto) (0.00-0.03) X10*3/uL Absolute Neuts (auto) (2.0-8.3) x10*3/uL Absolute Nucleated RBC (0.0-0.012) X10*3/uL Nucleated RBC % (auto) (0.0-0.2) /100WBC PT (10.9-12.4) SEC INR (0.9-1.1) APTT (26.0-36.8) SEC O2 Saturation 95.0 % ABG pH at Pt Temp 7.36 (7.35-7.45) ABG pCO2 at Pt Temp 79 H* (32-45) mmHg ABG pO2 at Pt Temp 76 L (83-108) mmHg ABG HCO3 46 H (22-26) mmol/L ABG Base Excess (Actual) 17.4 mmol/L VBG pH (7.32-7.43) VBG pCO2 mmHg VBG pO2 mmHg VBG HCO3 (22-26) mmol/L VBG O2 Saturation % VBG Base Excess mmol/L Sodium 140 (135-145) mmol/L Potassium 4.6 D (3.3-5.1) mmol/L Chloride 93 L (96-108) mmol/L Carbon Dioxide 38 H (22-29) mmol/L Anion Gap 14 (12-20) BUN 15 (9-16) mg/dL Creatinine 0.84 (0.5-1.4) mg/dL Estim Creat Clear Calc 69.8 Estimated GFR > 60 Random Glucose 103 (60-115) mg/dL Lactic Acid 0.6 (0.5-2.0) mmol/L Calcium 9.1 (8.4-10.2) mg/dL Magnesium 2.0 (1.6-2.6) mg/dL Total Bilirubin 0.3 (0.0-1.0) mg/dL AST 32 H (5-31) U/L ALT 14 (0-31) U/L Alkaline Phosphatase 73 (39-117) U/L Troponin I High Sens (<3.5-17.0) ng/L B-Natriuretic Peptide (<100) pg/mL Total Protein 6.9 (6.5-8.0) g/dL Albumin 3.9 (3.5-5.0) g/dL Influenza Type A (PCR) NEGATIVE (Negative) Influenza Type B (PCR) NEGATIVE (Negative) RSV RNA Qual (PCR) NEGATIVE (Negative) SARS-CoV-2 RNA (RT-PCR) NEGATIVE (Negative) 09/26/24 09/26/24 09/26/24 Range/Units 10:43 10:49 11:03 WBC 7.6 (4.8-10.8) X10*3/uL RBC 3.03 L (4.20-5.50) X10*6/uL Hgb 8.9 L (12.0-16.0) g/dl Hct 29.0 L (37.0-47.0) % MCV 95.7 (80.0-98.0) fL MCH 29.4 (27.0-33.0) pg MCHC 30.7 L (31.0-35.0) g/dl RDW 15.0 (11.0-16.0) % Plt Count 352 (160-400) X10*3/uL MPV 9.6 (9.4-12.3) fL Immature Gran % (Auto) 0.9 H (0.0-0.4) % Neut % (Auto) 79.0 H (45-73) % Lymph % (Auto) 8.3 L (20-40) % Banks % (Auto) 10.6 (2-11) % Eos % (Auto) 0.4 (0-4) % Baso % (Auto) 0.8 (0-2) % Lymph # (Auto) 0.6 L (1.2-4.9) X10*3/uL Banks # (Auto) 0.8 (0.1-1.2) X10*3/uL Eos # (Auto) 0.0 (0.0-0.4) X10*3/uL Baso # (Auto) 0.1 (0.0-0.2) X10*3/uL Abs Immat Gran (auto) 0.07 H (0.00-0.03) X10*3/uL Absolute Neuts (auto) 6.0 (2.0-8.3) x10*3/uL Absolute Nucleated RBC 0.000 (0.0-0.012) X10*3/uL Nucleated RBC % (auto) 0.0 (0.0-0.2) /100WBC PT 17.2 H D (10.9-12.4) SEC INR 1.5 H (0.9-1.1) APTT 40.6 H (26.0-36.8) SEC O2 Saturation % ABG pH at Pt Temp (7.35-7.45) ABG pCO2 at Pt Temp (32-45) mmHg ABG pO2 at Pt Temp (83-108) mmHg ABG HCO3 (22-26) mmol/L ABG Base Excess (Actual) mmol/L VBG pH 7.49 H (7.32-7.43) VBG pCO2 64 mmHg VBG pO2 148 mmHg VBG HCO3 49 H (22-26) mmol/L VBG O2 Saturation 99.0 % VBG Base Excess 22.9 mmol/L Sodium (135-145) mmol/L Potassium (3.3-5.1) mmol/L Chloride (96-108) mmol/L Carbon Dioxide (22-29) mmol/L Anion Gap (12-20) BUN (9-16) mg/dL Creatinine (0.5-1.4) mg/dL Estim Creat Clear Calc Estimated GFR Random Glucose (60-115) mg/dL Lactic Acid (0.5-2.0) mmol/L Calcium (8.4-10.2) mg/dL Magnesium (1.6-2.6) mg/dL Total Bilirubin (0.0-1.0) mg/dL AST (5-31) U/L ALT (0-31) U/L Alkaline Phosphatase (39-117) U/L Troponin I High Sens 4.5 (<3.5-17.0) ng/L B-Natriuretic Peptide 348 H (<100) pg/mL Total Protein (6.5-8.0) g/dL Albumin (3.5-5.0) g/dL Influenza Type A (PCR) (Negative) Influenza Type B (PCR) (Negative) RSV RNA Qual (PCR) (Negative) SARS-CoV-2 RNA (RT-PCR) (Negative) Independent Interpretation I performed an independent interpretation of an: EKG and Plain X-Ray Interpretation: My interpretation patient's one-view chest x-ray is as follows: Increased interstitial markings bones consistent with congestive heart failure My interpretation of the patient's 12 EKG is as follows: Normal sinus rhythm with a rate of 72, normal MI interval, QRS duration QTC interval, Q-wave in lead 3 and AVF, no ST segment elevation, no ST segment depression, no significant T- wave abnormalities, no PACs, no PVCs Radiology Impression Discussion of test interpretation with radiology: I have reviewed the radiologist's reading. Radiologist Impression: XR chest 1V IMPRESSION: 1. Patchy increased opacities toward the peripheral bases could be related to chronic scarring/atelectasis although superimposed infiltrates are considered. 2. Small nodular opacities superimposed on the left upper lobe slightly more evident since the previous evaluation and could be related to nodular infiltrates. Electronically signed by: Wally Amaya MD 09/26/2024 11:41 AM Independent Historian Clinical information obtained from an independent historian. History obtained from or confirmed by: EMS External Record Review External record reviewed: Inpatient record Chronic Conditions Patient?s care impacted by: Other (CHF, COPD) Critical Care Time Critical Care Time Critical Care Time: Yes Total Critical Care Time: 80 Attestation: Critical Care: The patient was critically ill with a high probability of imminent or life threatening deterioration. I spent greater than 30 minutes of discontinuous time evaluating the patient,delivering critical care at the bedside, discussing and evaluating pertinent data with consultants. Critical care time does not include time spent performing separately billable procedures or teaching. Total time spent performing critical care was 80 minutes. Discharge Plan Discharge Clinical Impression: Pulmonary edema, Acute exacerbation of chronic obstructive pulmonary disease (COPD), Edema, peripheral, Hypoxia Prescriptions: No Action acetaminophen 500 mg Tablet 1,000 mg PO Q6H PRN (Reason: Pain) aspirin 81 mg Tablet,Delayed Release (Dr/Ec) 81 mg PO DAILY alendronate [Fosamax] 70 mg Tablet 70 mg PO DOMINGUEZ lamotrigine 150 mg Tablet 300 mg PO BEDTIME montelukast 10 mg Tablet 10 mg PO BEDTIME albuterol sulfate [Proventil HFA] 90 mcg/actuation Hfa Aerosol Inhaler 2 puff INHALATION QID PRN (Reason: Respiratory Distress) cholecalciferol (vitamin D3) [Vitamin D3] 50 mcg (2,000 unit) Capsule 50 mcg PO DAILY mirtazapine 15 mg tablet 15 mg PO BEDTIME metoprolol succinate 50 mg Tablet Extended Release 24 Hr 50 mg PO DAILY betamethasone dipropionate 0.05 % cream 1 appl topical Q12H PRN (Reason: Dermititis ) cyclobenzaprine 5 mg tablet 5 mg PO Q8H PRN (Reason: Muscle Pain) meloxicam 15 mg tablet 15 mg PO DAILY lactulose 10 gram/15 mL solution 30 ml PO DAILY PRN (Reason: Constipation) Rx Instructions: If no BM in 2 days fluocinolone acetonide oil [DermOtic Oil] 0.01 % Drops 4 drp OTIC (EARS) Q48H diclofenac sodium 1 % gel 1 g topical Q8H PRN (Reason: Pain) theophylline 200 mg tablet extended release 12 hr 200 mg PO BID docusate sodium 100 mg capsule 100 mg PO DAILY pantoprazole 40 mg tablet,delayed release (DR/EC) 40 mg PO DAILY@0630 fluticasone furoate-vilanterol [Breo Ellipta] 200-25 mcg/dose blister with device 1 inh INHALATION DAILY albuterol sulfate 2.5 mg /3 mL (0.083 %) solution for nebulization 2.5 mg inhalation Q6H PRN (Reason: wheezing) calcium carbonate-vitamin D3 [Oyster Shell Calcium-Vit D3] 500 mg-10 mcg (400 unit) Tablet 1 tab PO BID lamotrigine 200 mg Tablet 200 mg PO DAILY Serevent Diskus 50 mcg/dose Blister With Device 1 inh INHALATION BID mineral oil Oil 1 appl TOPICAL Q48H PRN (Reason: eczema) Rx Instructions: apply to both outer ears topically aripiprazole 10 mg tablet 10 mg PO DAILY omega [id number] oil [Fish Oil] 1,000 mg (120 mg-180 mg) Capsule 1 cap PO BID furosemide 20 mg Tablet 20 mg PO BID@0900,1800 Qty: 60 0RF Protocol: Hold for SBP< HOLD for SBP < : 90 Rx Instructions: increase from 20 mg daily prednisone 10 mg tablet See Rx Instructions .ROUTE .COMPLEX Qty: 15 0RF Rx Instructions: 30 mg daily x 2 days, then 20 mg daily x 2 days, then 10 mg daily x 2 days, then 5 mg daily x 2 days doxycycline monohydrate 100 mg tablet 100 mg PO BID Qty: 4 0RF sennosides [Senokot] 8.6 mg tablet 8.6 mg PO BEDTIME Rx Instructions: Hold for loose stools gabapentin 100 mg capsule 100 mg PO TID (DME) nebulizers [facility] [place] See Rx Instructions .Route Rx Instructions: As directed fluticasone propionate 50 mcg/actuation spray,suspension 1 spray intranasal DAILY vilazodone 40 mg tablet 40 mg PO DAILY (DME) Oxygen Home Use Kit See Rx Instructions .Route Rx Instructions: As directed Print Language: Georgian
[2024-09-26 10:47] LABS: ABG Base Excess 17.4 mmol/L; ABG HCO3 46 mmol/L (22-26); ABG pCO2 79 mmHg (32-45); ABG pH 7.36 (7.35-7.45); ABG pO2 76 mmHg (83-108)
[2024-09-26 10:48] LABS: MANUAL DIFF FLAG NO
[2024-09-26 11:06] LABS: Venous Blood Gas Refer to POC result
[2024-09-26 11:06] LABS: VBG Base Excess 22.9 mmol/L; VBG HCO3 49 mmol/L (22-26); VBG pCO2 64 mmHg; VBG pH 7.49 (7.32-7.43); VBG pO2 148 mmHg
[2024-09-26 11:09] LABS: Basophils Absolute Auto 0.1 X10*3/uL (0.0-0.2); Basophils Percent Auto 0.8 % (0-2); Eosinophils Percent Auto 0.4 % (0-4); Hemoglobin 8.9 g/dl (12.0-16.0); Imm Gran Abs Auto 0.07 X10*3/uL (0.00-0.03); Imm Gran Pct Auto 0.9 % (0.0-0.4); Lymphocytes Absolute Auto 0.6 X10*3/uL (1.2-4.9); Lymphocytes Percent Auto 8.3 % (20-40); Mean Corpuscular HGB Conc 30.7 g/dl (31.0-35.0); Mean Corpuscular Hemoglobin 29.4 pg (27.0-33.0); Mean Corpuscular Volume 95.7 fL (80.0-98.0); Mean Platelet Volume 9.6 fL (9.4-12.3); Monocytes Absolute Auto 0.8 X10*3/uL (0.1-1.2); Monocytes Percent Auto 10.6 % (2-11); Platelet Count 352 X10*3/uL (160-400); Red Blood Count 3.03 X10*6/uL (4.20-5.50); White Blood Count 7.6 X10*3/uL (4.8-10.8)
[2024-09-26] MEDS: methylPREDNISolone Sod Succ 125 MG/2 ML VIAL IVPUSH (11:09)
[2024-09-26] MEDS: Furosemide 40 MG/4 ML VIAL IVPUSH ×3 (11:09→17:56)
[2024-09-26 11:15] LABS: INTERNATIONAL NORM RATIO 1.5 (0.9-1.1); Prothrombin Time 17.2 SEC (10.9-12.4)
[2024-09-26 11:17] LABS: Alanine Aminotransferase 14 U/L (0-31); Albumin Level 3.9 g/dL (3.5-5.0); Alkaline Phosphatase 73 U/L (39-117); Anion Gap 14 (12-20); Aspartate Amino Transferase 32 U/L (5-31); Bilirubin Total 0.3 mg/dL (0.0-1.0); Blood Urea Nitrogen 15 mg/dL (9-16); Calcium 9.1 mg/dL (8.4-10.2); Carbon Dioxide 38 mmol/L (22-29); Chloride 93 mmol/L (96-108); Creatinine Clr Calc Pharmacy 69.8; Estimated Glomerular Filt Rate > 60; Glucose Random 103 mg/dL (60-115); Potassium 4.6 mmol/L (3.3-5.1); Sodium 140 mmol/L (135-145); Total Protein 6.9 g/dL (6.5-8.0)
[2024-09-26 11:18] LABS: Lactic Acid 0.6 mmol/L (0.5-2.0)
[2024-09-26 11:18] LABS: Partial Thromboplastin Time 40.6 SEC (26.0-36.8)
[2024-09-26] MEDS: Albuterol Sulfate 5 MG, Albuterol/Iprat 2.5/0.5MG 3 ML 3 ML INHALE (11:28)
[2024-09-26 11:35] LABS: Influenza A PCR NEGATIVE (Negative); Influenza B PCR NEGATIVE (Negative); Resp Syncy Virus RNA Qual PCR NEGATIVE (Negative); SARS COV2 PCR INHOUSE NEGATIVE (Negative)
[2024-09-26 11:36] LABS: B Type Natriuretic Peptide 348 pg/mL (<100)
[2024-09-26 11:50] LABS: Troponin-I High Sensitivity 4.5 ng/L (<3.5-17.0)
--- NOTE | 2024-09-26 13:18 | PC.NURSE ---
Pt omar from senior living for increased SOB starting yesterday. Per pt her sats were low 90s at the senior living on 4L NC, EMS found pt sat to be 70s while moving her into ambulance. Upon arrival to room pt O2 sat found to be low 70s on 4L NC. Placed on 15L oxymask with good effect, O2 increased to 95-98%. Respiratory at bedside, placed on BIPAP. Maintaining O2 sat 90%-93%. 20g IV placed to right wrist, 22g in left hand. Pt medicated per JAN with 80mg Lasix, output 500mls. A/ox3, pt sob upon arrival, no sob/wob after placed on bipap, diminished breath sounds bilaterally, s1 and s2 heard, HR- 90s on bus driver/monitor NSR, abdomen soft, non-tender. Call marroquin within reach, all needs met at this time.
[2024-09-26 13:27] LABS: ABG Refer to POC result
--- NOTE | 2024-09-26 13:50 | PC.NURSE ---
Per MD Hutchinson take pt off BIPAP and place on 3L NC. Pt taken off bipap, respiratory at bedside. Pt desat into low 80s on 6L NC. Placed back on bipap per MD Hutchinson.
--- NOTE | 2024-09-26 14:20 | PHA.MEDREC ---
Addendum entered by Marita Diamond RPh 09/26/24 14:32: Reviewed by [facility] Original Note: Pharmacy Consult ? Medication Reconciliation Pharmacy has completed the medication reconciliation. Confirmed medications with [facility] from patient [facility].
--- NOTE | 2024-09-26 14:39 | PM.IMHP ---
History of Present Illness Date of Service: 09/26/24 Chief Complaint: Shortness of breath 69-year-old female with pertinent history of chronic hypoxic hypercapnic failure due to COPD on 3 L baseline oxygen at rest, 6 L during activity, BiPAP at night, hypertension, congestive heart failure, mood disorder, osteoporosis who presents to the emergency department shortness of breath x2 days. Patient states she was feeling short of breath yesterday and the symptoms got progressively worse. She states she had increased her oxygen to 4 L this morning with no improvement her symptoms. She also gave herself a nebulizer this morning with no improvement therefore she called 911. Paramedics report that initially on 4 L she was 90%. In route to the hospitalist she was given a DuoNeb in her O2 saturation dropped down the 70%. Here in the emergency department on 4 L of oxygen via nasal cannula O2 saturation was 57%. Patient was placed on an OxyMask at 15 liters/minute O2 saturation is 96%. In the emergency room, patient given 125 methylprednisolone DuoNebs and 40 mg of IV Lasix. Upon completion of the chest x-ray it was felt that this was more congestive heart failure and an additional 40 of Lasix was given with good results. At this point in time she will be admitted for further workup and treatment of her presenting complaint Review of Systems Review of Systems: Admits to shortness of breath that is worse than baseline Denies chest pain Denies nausea vomiting diarrhea Denies fever chills PMFSH Medical History Rib fractures Pulmonary nodule Tubular adenoma of colon (~2006) Osteopenia (~2012) Bronchopneumonia Chest pain Chronic respiratory alkalosis ILD (interstitial lung disease) CO2 retention Acute on chronic respiratory failure with hypoxia and hypercapnia Bipolar depression Eczema Limb swelling Insomnia Bronchitis Vasomotor rhinitis COPD (chronic obstructive pulmonary disease) Chronic respiratory failure Fall Acute metabolic encephalopathy Acute and chronic respiratory failure with hypercapnia Family History Other Hypertension Surgical History History of carpal tunnel surgery (~2000) History of ventral hernia repair (~2003) History of left inguinal hernia repair (~1995) History of tracheostomy (~2016) History of cataract surgery (~2019) History of colonoscopy Social History Household Members: Other Household Members Other:: shelter Housing: Other Housing Other:: shelter Are you a primary rn progressive care unit to a significant other at home: No Do you presently have visiting nurse or other home services: Yes (shelter services) Alcohol intake: unknown Patient Tobacco Use Status: Former Tobacco user Tobacco use type: Cigarette Years Smoked: 20+ years Smoked in Last 30 Days: No e-Cigarette/Vaping Use: Never Used Second Hand Smoke Exposure: No Use of substances other than those prescribed or required for medical reasons: No Advance Directives: Yes Advance Directives on File: Yes Advance Directives Date on File: 11/30/21 Do you have a plan to hurt others: No Plan service: No Current occupational status: disabled Meds Allergies Allergy/AdvReac Type Severity Reaction Status Date / Time codeine [Codeine] Allergy Intermediate RESTLESS/RA Verified 09/26/24 10:45 SH haloperidol [Haldol] Allergy Intermediate Palpitation Verified 09/26/24 10:45 s Sulfa (Sulfonamide Allergy Intermediate HIVES Verified 09/13/24 09:25 Antibiotics) Active Medications: Current Medications Acetaminophen (Acetaminophen 325 Mg Tablet) 650 mg PO Q6H PRN PRN Reason: Pain, Mild (Pain Scale 1-3), fever or headache Albuterol Sulfate (Albuterol Sulfate (0.083%) 2.5 Mg/3 Ml Vial.Neb) 2.5 mg INHALE Q6H PRN PRN Reason: wheezing Apixaban (Apixaban 5 Mg Tablet) 5 mg PO BID ALYSSA Aripiprazole (Aripiprazole 10 Mg Tablet) 10 mg PO DAILY ALYSSA Aspirin (Aspirin Enteric Coated 81 Mg Tablet.Dr) 81 mg PO DAILY ALYSSA Calcium Carbonate (Calcium Carbonate 750 Mg Tab.Chew) 750 mg PO Q4H PRN PRN Reason: Heartburn Fluticasone/Vilanterol (Fluticasone/Vilanterol 200/25 Blst.W.Dev) 1 puff INHALE DAILY [facility] Furosemide (Furosemide 40 Mg/4 Ml Vial) 40 mg IVPUSH Q12H ALYSSA; Protocol Gabapentin (Gabapentin 100 Mg Capsule) 100 mg PO TID ALYSSA Lamotrigine (Lamotrigine 100 Mg Tablet) 300 mg PO BEDTIME ALYSSA Lamotrigine (Lamotrigine 100 Mg Tablet) 200 mg PO DAILY [facility] Magnesium Hydroxide (Milk Of Magnesia 30 Ml Oral.Susp) 30 ml PO DAILY PRN PRN Reason: Constipation Melatonin (Melatonin 3 Mg Tablet) 6 mg PO BEDTIME PRN PRN Reason: Insomnia Metoprolol Succinate (Metoprolol Succinate Er 100 Mg Tab.Er.24h) 100 mg PO DAILY ALYSSA; Protocol Mirtazapine (Mirtazapine 15 Mg Tablet) 15 mg PO BEDTIME ALYSSA Montelukast Sodium (Montelukast Sodium 10 Mg Tablet) 10 mg PO BEDTIME ALYSSA Non-Formulary Medication (Pantoprazole) 40 mg PO DAILY@0630 ALYSSA Ondansetron HCl (Ondansetron Hcl 4 Mg/2 Ml Vial) 4 mg IVPUSH Q8H PRN PRN Reason: Nausea and Vomiting Salmeterol Xinafoate (Salmeterol Xinafoate 50 Mcg Blst.W.Dev) 1 puff INHALE BID [facility] Sodium Chloride (0.9 % Sodium Chloride Flush 3 Ml Syringe) 3 ml IVFLUSH QSHIFT ALYSSA Vilazodone HCl (Vilazodone Hcl 40 Mg Tablet) 40 mg PO DAILY [facility] Home Medications ?Medication ?Instructions ?Recorded ?Confirmed ?Last Taken ?Type acetaminophen 500 mg tablet 1,000 mg PO Q8H PRN Pain 02/09/21 09/26/24 08/19/24 History albuterol sulfate 90 mcg/actuation 2 puff inhalation Q6H PRN 02/09/21 09/26/24 08/19/24 History aerosol inhaler (Proventil HFA) Respiratory Distress alendronate 70 mg tablet (Fosamax) 70 mg PO DOMINGUEZ 02/09/21 09/26/24 08/19/24 History aspirin 81 mg tablet,delayed 81 mg PO DAILY 02/09/21 09/26/24 08/19/24 History release cholecalciferol (vitamin D3) 50 50 mcg PO DAILY 02/09/21 09/26/24 08/19/24 History mcg (2,000 unit) capsule (Vitamin D3) lamotrigine 150 mg tablet 300 mg PO BEDTIME 02/09/21 09/26/24 08/19/24 History montelukast 10 mg tablet 10 mg PO BEDTIME 02/09/21 09/26/24 08/19/24 History mirtazapine 15 mg tablet 15 mg PO BEDTIME 09/10/21 09/26/24 08/19/24 History sennosides 8.6 mg tablet (Senokot) 8.6 mg PO BEDTIME 09/10/21 09/26/24 08/19/24 History metoprolol succinate 50 mg 100 mg PO DAILY 11/18/21 09/26/24 08/19/24 History tablet,extended release 24 hr Oxygen Home Use 04/15/23 05/17/24 Unknown History fluticasone propionate 50 1 spray intranasal DAILY Allergies 04/15/23 09/26/24 08/19/24 History mcg/actuation nasal spray,suspension nebulizers 04/15/23 05/17/24 Unknown History vilazodone 40 mg tablet 40 mg PO DAILY 04/15/23 09/26/24 08/19/24 History gabapentin 100 mg capsule 100 mg PO TID 09/20/23 09/26/24 08/19/24 History fluticasone furoate 200 1 inh inhalation DAILY SOB 06/21/24 09/26/24 08/19/24 History mcg-vilanterol 25 mcg/dose inhalation powder (Breo Ellipta) pantoprazole 40 mg tablet,delayed 40 mg PO DAILY@0630 06/21/24 09/26/24 08/19/24 History release betamethasone dipropionate 0.05 % 1 appl topical Q12H PRN Dermititis 07/27/24 09/26/24 08/19/24 History topical cream cyclobenzaprine 5 mg tablet 5 mg PO Q8H PRN Muscle Pain 07/27/24 09/26/24 08/19/24 History diclofenac sodium 1 % topical gel 1 g topical Q12H PRN Pain 07/27/24 09/26/24 08/19/24 History docusate sodium 100 mg capsule 100 mg PO DAILY PRN Constipation 07/27/24 09/26/24 08/19/24 History fluocinolone acetonide oil 0.01 % 4 drp otic (ears) Q48H 07/27/24 09/26/24 08/19/24 History ear drops (DermOtic Oil) lactulose 10 gram/15 mL oral 30 ml PO DAILY PRN Constipation 07/27/24 09/26/24 08/19/24 History solution meloxicam 15 mg tablet 15 mg PO DAILY 07/27/24 09/26/24 08/19/24 History theophylline 200 mg 200 mg PO BID 07/27/24 09/26/24 08/19/24 History tablet,extended release,12 hr albuterol sulfate 2.5 mg/3 mL 2.5 mg inhalation Q6H PRN wheezing 08/20/24 09/26/24 08/19/24 History (0.083 %) solution for nebulization aripiprazole 10 mg tablet 10 mg PO DAILY 08/20/24 09/26/24 Unknown History calcium carbonate 500 mg-vitamin 1 tab PO BID 08/20/24 09/26/24 Unknown History D3 10 mcg (400 unit) tablet (Oyster Shell Calcium-Vitamin D3) lamotrigine 200 mg tablet 200 mg PO DAILY 08/20/24 09/26/24 Unknown History mineral oil 1 appl topical Q48H PRN eczema 08/20/24 09/26/24 Unknown History omega 9-vtf-ytm-fish oil 1,000 mg 1 cap PO BID 08/20/24 09/26/24 Unknown History (120 mg-180 mg) capsule (Fish Oil) salmeterol 50 mcg/dose blister 1 inh inhalation BID 08/20/24 09/26/24 Unknown History powder for inhalation (Serevent Diskus) apixaban 5 mg tablet (Eliquis) 5 mg PO BID 09/26/24 09/26/24 Unknown History furosemide 20 mg tablet 20 mg PO DAILY 09/26/24 09/26/24 Unknown History Physical Exam Vital Signs and Narrative: Vital Signs: Last Vital Signs Temp 98.2 F 09/26/24 13:54 Pulse 89 09/26/24 14:35 Resp 15 09/26/24 14:35 BP 148/79 H 09/26/24 14:35 Pulse Ox 93 09/26/24 14:35 O2 Del Method Oxymask 09/26/24 14:35 O2 Flow Rate 8 09/26/24 14:35 Oxygen Flow Rate 15 09/26/24 10:37 BMI result Body Mass Index 33.7 Const: Other: Awake alert; tolerating BiPAP Resp: Other: Diminished at bases with bilateral basilar crackles Cardio: Other: No S4; positive S1-S2; no S3 murmurs rubs or gallops GI: Other: Soft nontender nondistended normoactive bowel sounds Neuro: Other: Cranial nerves 2-12 grossly intact as tested. Motor is 5/5 all extremities sensation is intact Extrem: Other: No edema bilaterally Results Labs 09/26/24 10:43 09/26/24 10:42 Labs: Laboratory Results - last 24 hr 09/26/24 09/26/24 09/26/24 10:37 10:40 10:42 MCV MCH MCHC RDW Plt Count MPV Immature Gran % (Auto) Neut % (Auto) Lymph % (Auto) [place] % (Auto) Eos % (Auto) Baso % (Auto) Lymph # (Auto) [place] # (Auto) Eos # (Auto) Baso # (Auto) Abs Immat Gran (auto) Absolute Neuts (auto) Absolute Nucleated RBC Nucleated RBC % (auto) PT INR APTT O2 Saturation 95.0 ABG pH at Pt Temp 7.36 ABG pCO2 at Pt Temp 79 H* ABG pO2 at Pt Temp 76 L ABG HCO3 46 H ABG Base Excess (Actual) 17.4 VBG pH VBG pCO2 VBG pO2 VBG HCO3 VBG O2 Saturation VBG Base Excess Anion Gap 14 Estim Creat Clear Calc 69.8 Estimated GFR > 60 Random Glucose 103 Lactic Acid 0.6 Calcium 9.1 Magnesium 2.0 Total Bilirubin 0.3 AST 32 H ALT 14 Alkaline Phosphatase 73 Troponin I High Sens B-Natriuretic Peptide Total Protein 6.9 Albumin 3.9 Influenza Type A (PCR) NEGATIVE Influenza Type B (PCR) NEGATIVE RSV RNA Qual (PCR) NEGATIVE SARS-CoV-2 RNA (RT-PCR) NEGATIVE 09/26/24 09/26/24 09/26/24 10:43 10:49 11:03 MCV 95.7 MCH 29.4 MCHC 30.7 L RDW 15.0 Plt Count 352 MPV 9.6 Immature Gran % (Auto) 0.9 H Neut % (Auto) 79.0 H Lymph % (Auto) 8.3 L [place] % (Auto) 10.6 Eos % (Auto) 0.4 Baso % (Auto) 0.8 Lymph # (Auto) 0.6 L [place] # (Auto) 0.8 Eos # (Auto) 0.0 Baso # (Auto) 0.1 Abs Immat Gran (auto) 0.07 H Absolute Neuts (auto) 6.0 Absolute Nucleated RBC 0.000 Nucleated RBC % (auto) 0.0 PT 17.2 H D INR 1.5 H APTT 40.6 H O2 Saturation ABG pH at Pt Temp ABG pCO2 at Pt Temp ABG pO2 at Pt Temp ABG HCO3 ABG Base Excess (Actual) VBG pH 7.49 H VBG pCO2 64 VBG pO2 148 VBG HCO3 49 H VBG O2 Saturation 99.0 VBG Base Excess 22.9 Anion Gap Estim Creat Clear Calc Estimated GFR Random Glucose Lactic Acid Calcium Magnesium Total Bilirubin AST ALT Alkaline Phosphatase Troponin I High Sens 4.5 B-Natriuretic Peptide 348 H Total Protein Albumin Influenza Type A (PCR) Influenza Type B (PCR) RSV RNA Qual (PCR) SARS-CoV-2 RNA (RT-PCR) Imaging Radiologist's Impressions: Impressions Chest X-Ray 09/26/24 10:35 IMPRESSION: 1. Patchy increased opacities toward the peripheral bases could be related to chronic scarring/atelectasis although superimposed infiltrates are considered. 2. Small nodular opacities superimposed on the left upper lobe slightly more evident since the previous evaluation and could be related to nodular infiltrates. Electronically signed by: Wally Amaya MD 09/26/2024 11:41 AM EDT RP Assessment and Plan (1) Acute on chronic heart failure with preserved ejection fraction (HFpEF): Status: Acute (2) Paroxysmal atrial fibrillation: Status: Acute Plan 69-year-old female recently admitted 08/20 through 08/23/2024 for exacerbation of COPD. Patient has a past medical history significant for chronic hypoxic hypercapnic respiratory failure secondary to COPD and is on 3 L of oxygen at baseline at rest 6 L during activity and BiPAP at night. She presents today with worsening of her shortness of breath requiring more oxygen. In the emergency room chest x-ray consistent with likely CHF and BNP is elevated. Received 40 of Lasix x2 with good diuresis and is improved. 1. HFpEF -continue Lasix 40 mg IV q.12 hours -cardiology consultation in a.m. -monitor on telemetry... Check echo -follow renals/divalents 2. Paroxysmal atrial fibrillation -continue Eliquis 5 mg b.i.d. -telemetry -rate control as indicated 3. Hypertension -acceptable control on current therapies -adjust as indicated Eliquis Full Code Patient will require at least 2 midnights going forward of inpatient stay for IV diuresis to treat acute CHF. This can not be achieved a lesser acute setting Quality Stroke Does the patient have a stroke diagnosis?: No VTE Prior VTE?: No VTE Risk Level:: Medical - moderate - high VTE Device Contraindication: Treatment Not Indicated VTE Drug Contraindication: N/A - Med Ordered
--- NOTE | 2024-09-26 14:58 | PC.NURSE ---
900ml output of urine.
--- NOTE | 2024-09-26 14:59 | PC.NURSE ---
Pt taken off Bipap, respiratory at bedside. Placed on oxymask 9L, plan to titrate O2 down to pt baseline O2. Maintaining O2 sat 90%-93%.
[2024-09-26] MEDS: Gabapentin 100 MG CAPSULE PO ×2 (16:09→20:26)
[2024-09-26] MEDS: 0.9 % Sodium Chloride Flush 3 ML SYRINGE IVFLUSH ×2 (16:10→20:27)
[2024-09-26] MEDS: lamoTRIgine 100 MG TABLET 300 MG PO (20:26)
[2024-09-26] MEDS: Montelukast Sodium 10 MG TABLET PO (20:27)
[2024-09-26] MEDS: Mirtazapine 15 MG TABLET PO (20:27)
[2024-09-26] MEDS: Apixaban 5 MG TABLET PO (20:27)
[2024-09-27] VITALS (10 sets, daily range): BP systolic 116–155; BP diastolic 58–70; PULSE 66–83; RESP 16–22; TEMP 36.3–36.7; O2SAT 91–95
[2024-09-27 06:16] LABS: MANUAL DIFF FLAG NO
[2024-09-27 06:22] LABS: Basophils Percent Auto 0.3 % (0-2); Eosinophils Percent Auto 0.3 % (0-4); Hematocrit 27.4 % (37.0-47.0); Hemoglobin 8.4 g/dl (12.0-16.0); Imm Gran Abs Auto 0.05 X10*3/uL (0.00-0.03); Imm Gran Pct Auto 0.8 % (0.0-0.4); Lymphocytes Absolute Auto 0.6 X10*3/uL (1.2-4.9); Lymphocytes Percent Auto 9.4 % (20-40); Mean Corpuscular HGB Conc 30.7 g/dl (31.0-35.0); Mean Corpuscular Hemoglobin 28.8 pg (27.0-33.0); Mean Corpuscular Volume 93.8 fL (80.0-98.0); Mean Platelet Volume 9.4 fL (9.4-12.3); Monocytes Absolute Auto 0.7 X10*3/uL (0.1-1.2); Monocytes Percent Auto 11.3 % (2-11); Neutrophils Absolute Auto 4.9 x10*3/uL (2.0-8.3); Neutrophils Percent Auto 77.9 % (45-73); Platelet Count 347 X10*3/uL (160-400); Red Blood Count 2.92 X10*6/uL (4.20-5.50); White Blood Count 6.3 X10*3/uL (4.8-10.8)
[2024-09-27] MEDS: Omeprazole 20 MG CAPSULE.DR PO (06:26)
[2024-09-27] MEDS: Furosemide 40 MG/4 ML VIAL IVPUSH (06:26)
[2024-09-27 06:52] LABS: Alanine Aminotransferase 9 U/L (0-31); Albumin Level 3.7 g/dL (3.5-5.0); Alkaline Phosphatase 57 U/L (39-117); Anion Gap 16 (12-20); Aspartate Amino Transferase 22 U/L (5-31); Bilirubin Total 0.3 mg/dL (0.0-1.0); Blood Urea Nitrogen 31 mg/dL (9-16); Calcium 8.6 mg/dL (8.4-10.2); Carbon Dioxide 43 mmol/L (22-29); Chloride 90 mmol/L (96-108); Creatinine Clr Calc Pharmacy 37.1; Estimated Glomerular Filt Rate 32; Glucose Random 97 mg/dL (60-115); Potassium 4.5 mmol/L (3.3-5.1); Sodium 144 mmol/L (135-145); Total Protein 6.2 g/dL (6.5-8.0)
[2024-09-27] MEDS: Aspirin Enteric Coated 81 MG TABLET.DR PO (08:59)
[2024-09-27] MEDS: Gabapentin 100 MG CAPSULE PO ×3 (08:59→21:40)
[2024-09-27] MEDS: 0.9 % Sodium Chloride Flush 3 ML SYRINGE IVFLUSH ×3 (08:59→21:41)
[2024-09-27] MEDS: Metoprolol Succinate ER 100 MG TAB.ER.24H PO (08:59)
[2024-09-27] MEDS: ARIPiprazole 10 MG TABLET PO (09:00)
[2024-09-27] MEDS: Vilazodone HCL 40 MG TABLET PO (09:00)
[2024-09-27] MEDS: Apixaban 5 MG TABLET PO ×2 (09:00→21:40)
[2024-09-27] MEDS: lamoTRIgine 100 MG TABLET 200 MG PO (09:01)
--- NOTE | 2024-09-27 09:12 | PM.CNPUL ---
History of Present Illness History of Present Illness Consult date: 09/27/24 Chief complaint: SOB Narrative: This is an inpatient pulmonary consultation. The patient is a 69-year-old female with pertinent history of chronic hypoxic hypercapnic failure and advanced COPD on 3 L baseline oxygen at rest, 6 L during activity, NIV at night, congestive heart failure, mood disorder, recently admitted to [facility] with afib s/p CV and treated for heart faliure. The patient presents to the emergency department shortness of breath x2 days. Patient states she was feeling short of breath yesterday and the symptoms got progressively worse. She states she had increased her oxygen to 4 L this morning with no improvement her symptoms. She also gave herself a nebulizer this morning with no improvement therefore she called 911. Paramedics report that initially on 4 L she was 90%. In route to the hospitalist she was given a DuoNeb in her O2 saturation dropped down the 70%. Here in the emergency department on 4 L of oxygen via nasal cannula O2 saturation was 57%. Patient was placed on an OxyMask at 15 liters/minute O2 saturation is 96%. In the emergency room, patient given 125 methylprednisolone DuoNebs and 40 mg of IV Lasix. Upon completion of the chest x-ray it was felt that this was more congestive heart failure and an additional 40 of Lasix was given with good results. At this point in time she will be admitted for further workup and treatment of her presenting complaint. Per the patient is feeling a little better. I did review her chest x-ray demonstrating increased right lower lobe opacity likely representing a lower respiratory infection. Although pulmonary vascular congestion is also in the differential. Will repeat the x-ray at this time. The patient treated for COPD exacerbation. Review of Systems Constitutional: Constitutional: Denies fatigue and Denies weakness Eyes: Eyes: Denies change in vision ENT: Denies sore throat Cardiovascular: Cardiovascular: Denies chest pain, Reports dyspnea and Reports dyspnea on exertion Respiratory: Respiratory: Reports chest congestion, Reports cough, Denies pain on inspiration, Denies pain with cough, Reports dyspnea, Reports dyspnea on exertion and Reports wheezing Gastrointestinal: Gastrointestinal: Denies abdominal pain Musculoskeletal: Musculoskeletal: Reports abnormal gait and Reports muscle weakness Neurologic: Reports abnormal gait, Reports memory loss and Denies weakness Psychiatric: Psychiatric: Reports depression and Reports memory loss Endocrine: Endocrine: Denies fatigue Allergic/Immunologic: Allergic/Immunologic: Reports wheezing PMFSH Past Medical History Medical History (Updated 09/27/24 @ 09:18 by Caden Acharya MD) Cor pulmonale Rib fractures Pulmonary nodule Tubular adenoma of colon (~2006) Osteopenia (~2012) Bronchopneumonia Chest pain Chronic respiratory alkalosis ILD (interstitial lung disease) CO2 retention Acute on chronic respiratory failure with hypoxia and hypercapnia Bipolar depression Eczema Limb swelling Insomnia Bronchitis Vasomotor rhinitis COPD (chronic obstructive pulmonary disease) Chronic respiratory failure Fall Acute metabolic encephalopathy Acute and chronic respiratory failure with hypercapnia Family History Family History Other Hypertension Surgical History Surgical History History of carpal tunnel surgery (~2000) History of ventral hernia repair (~2003) History of left inguinal hernia repair (~1995) History of tracheostomy (~2016) History of cataract surgery (~2018) History of colonoscopy Social History Social History Household Members: Other Household Members Other:: senior care Housing: Other Housing Other:: senior care Are you a primary complex care nurse practitioner to a significant other at home: No Do you presently have visiting nurse or other home services: Yes (senior care services) Alcohol intake: unknown Patient Tobacco Use Status: Former Tobacco user Tobacco use type: Cigarette Years Smoked: 20+ years e-Cigarette/Vaping Use: Never Used Second Hand Smoke Exposure: No Advance Directives Date on File: 11/30/21 service: No Current occupational status: disabled Meds Allergies Allergy/AdvReac Type Severity Reaction Status Date / Time codeine [Codeine] Allergy Intermediate RESTLESS/RA Verified 09/26/24 10:45 SH haloperidol [Haldol] Allergy Intermediate Palpitation Verified 09/26/24 10:45 s Sulfa (Sulfonamide Allergy Intermediate HIVES Verified 09/13/24 09:25 Antibiotics) Active Medications: Current Medications Acetaminophen (Acetaminophen 325 Mg Tablet) 650 mg PO Q6H PRN PRN Reason: Pain, Mild (Pain Scale 1-3), fever or headache Albuterol Sulfate (Albuterol Sulfate (0.083%) 2.5 Mg/3 Ml Vial.Neb) 2.5 mg INHALE Q6H PRN PRN Reason: wheezing Apixaban (Apixaban 5 Mg Tablet) 5 mg PO BID [facility] Last Admin: 09/27/24 09:00 Dose: 5 mg Aripiprazole (Aripiprazole 10 Mg Tablet) 10 mg PO DAILY [facility] Last Admin: 09/27/24 09:00 Dose: 10 mg Aspirin (Aspirin Enteric Coated 81 Mg Tablet.Dr) 81 mg PO DAILY [facility] Last Admin: 09/27/24 08:59 Dose: 81 mg Calcium Carbonate (Calcium Carbonate 750 Mg Tab.Chew) 750 mg PO Q4H PRN PRN Reason: Heartburn Fluticasone/Vilanterol (Fluticasone/Vilanterol 200/25 Blst.W.Dev) 1 puff INHALE RDAILY [facility] Gabapentin (Gabapentin 100 Mg Capsule) 100 mg PO TID [facility] Last Admin: 09/27/24 08:59 Dose: 100 mg Lamotrigine (Lamotrigine 100 Mg Tablet) 300 mg PO BEDTIME [facility] Last Admin: 09/26/24 20:26 Dose: 300 mg Lamotrigine (Lamotrigine 100 Mg Tablet) 200 mg PO DAILY [facility] Last Admin: 09/27/24 09:01 Dose: 200 mg Magnesium Hydroxide (Milk Of Magnesia 30 Ml Oral.Susp) 30 ml PO DAILY PRN PRN Reason: Constipation Melatonin (Melatonin 3 Mg Tablet) 6 mg PO BEDTIME PRN PRN Reason: Insomnia Metoprolol Succinate (Metoprolol Succinate Er 100 Mg Tab.Er.24h) 100 mg PO DAILY [facility]; Protocol Last Admin: 09/27/24 08:59 Dose: 100 mg Mirtazapine (Mirtazapine 15 Mg Tablet) 15 mg PO BEDTIME [facility] Last Admin: 09/26/24 20:27 Dose: 15 mg Montelukast Sodium (Montelukast Sodium 10 Mg Tablet) 10 mg PO BEDTIME [facility] Last Admin: 09/26/24 20:27 Dose: 10 mg Omeprazole (Omeprazole 20 Mg Capsule.Dr) 20 mg PO DAILY@0630 [facility] Last Admin: 09/27/24 06:26 Dose: 20 mg Ondansetron HCl (Ondansetron Hcl 4 Mg/2 Ml Vial) 4 mg IVPUSH Q8H PRN PRN Reason: Nausea and Vomiting Salmeterol Xinafoate (Salmeterol Xinafoate 50 Mcg Blst.W.Dev) 1 puff INHALE RBID [facility] Last Admin: 09/26/24 19:55 Dose: Not Given Sodium Chloride (0.9 % Sodium Chloride Flush 3 Ml Syringe) 3 ml IVFLUSH QSHIFT [facility] Last Admin: 09/27/24 08:59 Dose: 3 ml Vilazodone HCl (Vilazodone Hcl 40 Mg Tablet) 40 mg PO DAILY [facility] Last Admin: 09/27/24 09:00 Dose: 40 mg Home Medications ?Medication ?Instructions ?Recorded ?Confirmed ?Last Taken ?Type acetaminophen 500 mg tablet 1,000 mg PO Q8H PRN Pain 02/09/21 09/26/24 08/19/24 History albuterol sulfate 90 mcg/actuation 2 puff inhalation Q6H PRN 02/09/21 09/26/24 08/19/24 History aerosol inhaler (Proventil HFA) Respiratory Distress alendronate 70 mg tablet (Fosamax) 70 mg PO DOMINGUEZ 02/09/21 09/26/24 08/19/24 History aspirin 81 mg tablet,delayed 81 mg PO DAILY 02/09/21 09/26/24 08/19/24 History release cholecalciferol (vitamin D3) 50 50 mcg PO DAILY 02/09/21 09/26/24 08/19/24 History mcg (2,000 unit) capsule (Vitamin D3) lamotrigine 150 mg tablet 300 mg PO BEDTIME 02/09/21 09/26/24 08/19/24 History montelukast 10 mg tablet 10 mg PO BEDTIME 02/09/21 09/26/24 08/19/24 History mirtazapine 15 mg tablet 15 mg PO BEDTIME 09/10/21 09/26/24 08/19/24 History sennosides 8.6 mg tablet (Senokot) 8.6 mg PO BEDTIME 09/10/21 09/26/24 08/19/24 History metoprolol succinate 50 mg 100 mg PO DAILY 11/18/21 09/26/24 08/19/24 History tablet,extended release 24 hr Oxygen Home Use 04/15/23 05/17/24 Unknown History fluticasone propionate 50 1 spray intranasal DAILY Allergies 04/15/23 09/26/24 08/19/24 History mcg/actuation nasal spray,suspension nebulizers 04/15/23 05/17/24 Unknown History vilazodone 40 mg tablet 40 mg PO DAILY 04/15/23 09/26/24 08/19/24 History gabapentin 100 mg capsule 100 mg PO TID 09/20/23 09/26/24 08/19/24 History fluticasone furoate 200 1 inh inhalation DAILY SOB 06/21/24 09/26/24 08/19/24 History mcg-vilanterol 25 mcg/dose inhalation powder (Breo Ellipta) pantoprazole 40 mg tablet,delayed 40 mg PO DAILY@0630 06/21/24 09/26/24 08/19/24 History release betamethasone dipropionate 0.05 % 1 appl topical Q12H PRN Dermititis 07/27/24 09/26/24 08/19/24 History topical cream cyclobenzaprine 5 mg tablet 5 mg PO Q8H PRN Muscle Pain 07/27/24 09/26/24 08/19/24 History diclofenac sodium 1 % topical gel 1 g topical Q12H PRN Pain 07/27/24 09/26/24 08/19/24 History docusate sodium 100 mg capsule 100 mg PO DAILY PRN Constipation 07/27/24 09/26/24 08/19/24 History fluocinolone acetonide oil 0.01 % 4 drp otic (ears) Q48H 07/27/24 09/26/24 08/19/24 History ear drops (DermOtic Oil) lactulose 10 gram/15 mL oral 30 ml PO DAILY PRN Constipation 07/27/24 09/26/24 08/19/24 History solution meloxicam 15 mg tablet 15 mg PO DAILY 07/27/24 09/26/24 08/19/24 History theophylline 200 mg 200 mg PO BID 07/27/24 09/26/24 08/19/24 History tablet,extended release,12 hr albuterol sulfate 2.5 mg/3 mL 2.5 mg inhalation Q6H PRN wheezing 08/20/24 09/26/24 08/19/24 History (0.083 %) solution for nebulization aripiprazole 10 mg tablet 10 mg PO DAILY 08/20/24 09/26/24 Unknown History calcium carbonate 500 mg-vitamin 1 tab PO BID 08/20/24 09/26/24 Unknown History D3 10 mcg (400 unit) tablet (Oyster Shell Calcium-Vitamin D3) lamotrigine 200 mg tablet 200 mg PO DAILY 08/20/24 09/26/24 Unknown History mineral oil 1 appl topical Q48H PRN eczema 08/20/24 09/26/24 Unknown History omega 8-hmw-exm-fish oil 1,000 mg 1 cap PO BID 08/20/24 09/26/24 Unknown History (120 mg-180 mg) capsule (Fish Oil) salmeterol 50 mcg/dose blister 1 inh inhalation BID 08/20/24 09/26/24 Unknown History powder for inhalation (Serevent Diskus) apixaban 5 mg tablet (Eliquis) 5 mg PO BID 09/26/24 09/26/24 Unknown History furosemide 20 mg tablet 20 mg PO DAILY 09/26/24 09/26/24 Unknown History Physical Exam Vital Signs: Vital Signs: Last Vital Signs Temp 98.0 F 09/27/24 07:18 Pulse 66 09/27/24 07:18 Resp 20 09/27/24 07:18 BP 142/65 H 09/27/24 07:18 Pulse Ox 95 09/27/24 07:18 O2 Del Method Nasal Cannula 09/27/24 07:18 O2 Flow Rate 4 09/27/24 07:18 FiO2 40 09/26/24 23:40 Oxygen Flow Rate 15 09/26/24 10:37 BMI result Body Mass Index 33.9 Const: General: alert Neck: Neck: Yes normal visual inspection, Yes full ROM and Yes no lymphadenopathy Chest: Chest palpation & inspection: normal inspection of the chest Resp: Effort & Inspection: normal respiratory effort and prolonged expiratory phase Auscultation: diminished lung sounds Cardio: Rate: regular rate Rhythm: regular rhythm Heart sounds: S1 normal heart sound present and S2 normal heart sound present GI: Palpation (GI): Soft to palpation and nontender Auscultation: normal bowel sounds Skin: General skin exam: no rashes or lesions noted Extrem: General: No cyanosis and Yes edema Results Laboratory Findings 09/27/24 06:07 09/27/24 06:07 ABG, PT/INR, D-dimer: PT/INR, D-dimer PT 17.2 SEC (10.9-12.4) H D 09/26/24 11:03 INR 1.5 (0.9-1.1) H 09/26/24 11:03 Abnormal lab findings: Abnormal Labs 09/26/24 09/26/24 09/26/24 10:37 10:42 10:43 RBC 3.03 L Hgb 8.9 L Hct 29.0 L MCHC 30.7 L Immature Gran % (Auto) 0.9 H Neut % (Auto) 79.0 H Lymph % (Auto) 8.3 L [place] % (Auto) Lymph # (Auto) 0.6 L Abs Immat Gran (auto) 0.07 H PT INR APTT ABG pCO2 at Pt Temp 79 H* ABG pO2 at Pt Temp 76 L ABG HCO3 46 H VBG pH VBG HCO3 Chloride 93 L Carbon Dioxide 38 H BUN Creatinine AST 32 H B-Natriuretic Peptide Total Protein 09/26/24 09/26/24 09/27/24 10:49 11:03 06:07 RBC 2.92 L Hgb 8.4 L Hct 27.4 L MCHC 30.7 L Immature Gran % (Auto) 0.8 H Neut % (Auto) 77.9 H Lymph % (Auto) 9.4 L [place] % (Auto) 11.3 H Lymph # (Auto) 0.6 L Abs Immat Gran (auto) 0.05 H PT 17.2 H D INR 1.5 H APTT 40.6 H ABG pCO2 at Pt Temp ABG pO2 at Pt Temp ABG HCO3 VBG pH 7.49 H VBG HCO3 49 H Chloride 90 L Carbon Dioxide 43 H* BUN 31 H Creatinine 1.58 H AST B-Natriuretic Peptide 348 H Total Protein 6.2 L Assessment and Plan (1) Acute exacerbation of chronic obstructive pulmonary disease (COPD): Status: Acute (2) Pulmonary edema: Qualifiers: Chronicity: acute Qualified Code(s): J81.0 - Acute pulmonary edema Status: Acute (3) Cor pulmonale: Status: Acute Plan start solumedrol start Doxycycline respiratory therapy diuresis as tolerated, keep dry continue oxygen supplementation to keep pox>88% Continue NIV while sleeping, need to switch BIPAP to current AVAP settings Procedures Date of Service Date of Service: 09/27/24
--- NOTE | 2024-09-27 09:14 | MHC.CM.PN ---
CM met with Patient at bedside and addressed IMM with her, providing Patient with the original and a copy has been placed on the chart. Patient lives at a [facility] and returning there is the goal; CM has initiated and will follow for dc planning. Patient's home O2 and Trilogy vent are supplied by [facility]. Patient's Son/Anthony is the HCP and Patient will transport via BLS.Alf Director is Emani @ [phone].
[2024-09-27] MEDS: methylPREDNISolone Sod Succ 125 MG/2 ML VIAL 60 MG IVPUSH ×3 (10:25→21:39)
[2024-09-27] MEDS: cefTRIAXone sodium 1 GM VIAL IVPUSH (10:28)
[2024-09-27] MEDS: acetaZOLAMIDE sodium 500 MG VIAL 250 MG IVPUSH (10:34)
[2024-09-27] MEDS: Doxycycline Hyclate 100 MG in 0.9 % Sodium Chloride 250 ML 166.67 MG IV ×2 (10:45→21:39)
--- NOTE | 2024-09-27 10:52 | MHC.CM.PN ---
Patient is active with [employer].
[2024-09-27] MEDS: Salmeterol Xinafoate 50 MCG BLST.W.DEV 1 PUFF INHALE ×2 (11:12→18:08)
[2024-09-27] MEDS: Fluticasone/Vilanterol 200/25 BLST.W.DEV 1 PUFF INHALE (11:12)
--- NOTE | 2024-09-27 14:06 | P.PNIM_ITS ---
Subjective Subjective Date of Service: 09/27/24 Interval History: Notes improvement since admission. Breathing easier. Review of Systems Admits to shortness of breath that is worse than baseline Denies chest pain Denies nausea vomiting diarrhea Denies fever chills Physical Exam 2 Vital Signs: Vital Signs: Last Vital Signs Temp 97.5 F 09/27/24 11:03 Pulse 79 09/27/24 11:13 Resp 22 H 09/27/24 11:13 BP 131/62 09/27/24 11:03 Pulse Ox 94 09/27/24 11:03 O2 Del Method Nasal Cannula 09/27/24 11:03 O2 Flow Rate 4 09/27/24 11:03 FiO2 40 09/26/24 23:40 Oxygen Flow Rate 15 09/26/24 10:37 BMI result Body Mass Index 33.9 Const: Other: Awake alert; tolerating BiPAP Resp: Other: Diminished at bases with bilateral basilar crackles Cardio: Other: No S4; positive S1-S2; no S3 murmurs rubs or gallops GI: Other: Soft nontender nondistended normoactive bowel sounds Neuro: Other: Cranial nerves 2-12 grossly intact as tested. Motor is 5/5 all extremities sensation is intact Extrem: Other: No edema bilaterally Objective Data Active Medications Acetaminophen (Acetaminophen 325 Mg Tablet) 650 mg PO Q6H PRN PRN Reason: Pain, Mild (Pain Scale 1-3), fever or headache Albuterol Sulfate (Albuterol Sulfate (0.083%) 2.5 Mg/3 Ml Vial.Kb) 2.5 mg INHALE Q6H PRN PRN Reason: wheezing Apixaban (Apixaban 5 Mg Tablet) 5 mg PO BID [facility] Last Admin: 09/27/24 09:00 Dose: 5 mg Documented By: MARY Aripiprazole (Aripiprazole 10 Mg Tablet) 10 mg PO DAILY [facility] Last Admin: 09/27/24 09:00 Dose: 10 mg Documented By: MARY Aspirin (Aspirin Enteric Coated 81 Mg Tablet.) 81 mg PO DAILY [facility] Last Admin: 09/27/24 08:59 Dose: 81 mg Documented By: MARY Calcium Carbonate (Calcium Carbonate 750 Mg Tab.Chew) 750 mg PO Q4H PRN PRN Reason: Heartburn Ceftriaxone Sodium (Ceftriaxone Sodium 1 Gm Vial) 1 gm IVPUSH Q24H [facility] Last Admin: 09/27/24 10:28 Dose: 1 gm Documented By: MARY Fluticasone/Vilanterol (Fluticasone/Vilanterol 200/25 Blst.W.Dev) 1 puff INHALE RDAILY [facility] Last Admin: 09/27/24 11:12 Dose: 1 puff Documented By: DARCY Gabapentin (Gabapentin 100 Mg Capsule) 100 mg PO TID [facility] Last Admin: 09/27/24 08:59 Dose: 100 mg Documented By: MARY Doxycycline Hyclate 100 mg/ (Sodium Chloride) 250 mls @ 166.67 mls/hr IV Q12H [facility] Last Infusion: 09/27/24 12:18 Dose: Infused Documented By: MARY Lamotrigine (Lamotrigine 100 Mg Tablet) 300 mg PO BEDTIME [facility] Last Admin: 09/26/24 20:26 Dose: 300 mg Documented By: ERUM Lamotrigine (Lamotrigine 100 Mg Tablet) 200 mg PO DAILY [facility] Last Admin: 09/27/24 09:01 Dose: 200 mg Documented By: MARY Magnesium Hydroxide (Milk Of Magnesia 30 Ml Oral.Susp) 30 ml PO DAILY PRN PRN Reason: Constipation Melatonin (Melatonin 3 Mg Tablet) 6 mg PO BEDTIME PRN PRN Reason: Insomnia Methylprednisolone Sodium Succinate (Methylprednisolone Sod Succ 125 Mg/2 Ml Vial) 60 mg IVPUSH Q6H [facility] Last Admin: 09/27/24 10:25 Dose: 60 mg Documented By: MARY Metoprolol Succinate (Metoprolol Succinate Er 100 Mg Tab.Er.24h) 100 mg PO DAILY [facility]; Protocol Last Admin: 09/27/24 08:59 Dose: 100 mg Documented By: MARY Mirtazapine (Mirtazapine 15 Mg Tablet) 15 mg PO BEDTIME [facility] Last Admin: 09/26/24 20:27 Dose: 15 mg Documented By: ERUM Montelukast Sodium (Montelukast Sodium 10 Mg Tablet) 10 mg PO BEDTIME [facility] Last Admin: 09/26/24 20:27 Dose: 10 mg Documented By: ERUM Omeprazole (Omeprazole 20 Mg Capsule.) 20 mg PO DAILY@0630 [facility] Last Admin: 09/27/24 06:26 Dose: 20 mg Documented By: ERUM Ondansetron HCl (Ondansetron Hcl 4 Mg/2 Ml Vial) 4 mg IVPUSH Q8H PRN PRN Reason: Nausea and Vomiting Salmeterol Xinafoate (Salmeterol Xinafoate 50 Mcg Blst.W.Dev) 1 puff INHALE RBID [facility] Last Admin: 09/27/24 11:12 Dose: 1 puff Documented By: PASCALE Sodium Chloride (0.9 % Sodium Chloride Flush 3 Ml Syringe) 3 ml IVFLUSH QSHIFT [facility] Last Admin: 09/27/24 08:59 Dose: 3 ml Documented By: MARY Vilazodone HCl (Vilazodone Hcl 40 Mg Tablet) 40 mg PO DAILY [facility] Last Admin: 09/27/24 09:00 Dose: 40 mg Documented By: MARY Labs 09/27/24 06:07 09/27/24 06:07 Labs: Laboratory Results - last 24 hr 09/27/24 06:07 MCV 93.8 MCH 28.8 MCHC 30.7 L RDW 15.0 Plt Count 347 MPV 9.4 Immature Gran % (Auto) 0.8 H Neut % (Auto) 77.9 H Lymph % (Auto) 9.4 L [place] % (Auto) 11.3 H Eos % (Auto) 0.3 Baso % (Auto) 0.3 Lymph # (Auto) 0.6 L [place] # (Auto) 0.7 Eos # (Auto) 0.0 Baso # (Auto) 0.0 Abs Immat Gran (auto) 0.05 H Absolute Neuts (auto) 4.9 Absolute Nucleated RBC 0.000 Nucleated RBC % (auto) 0.0 Anion Gap 16 Estim Creat Clear Calc 37.1 Estimated GFR 32 Random Glucose 97 Calcium 8.6 Total Bilirubin 0.3 AST 22 ALT 9 Alkaline Phosphatase 57 Total Protein 6.2 L Albumin 3.7 Microbiology Microbiology Results: Microbiology 09/26/24 11:03 Blood Culture - Preliminary Blood - Venous No growth after 24 hours. 09/26/24 11:03 Blood Culture - Preliminary Blood - Venous No growth after 24 hours. Assessment and Plan (1) Paroxysmal atrial fibrillation: Status: Acute (2) Acute exacerbation of chronic obstructive pulmonary disease (COPD): Status: Acute Plan 69-year-old female recently admitted 08/20 through 08/23/2024 for exacerbation of COPD. Patient has a past medical history significant for chronic hypoxic hypercapnic respiratory failure secondary to COPD and is on 3 L of oxygen at baseline at rest 6 L during activity and BiPAP at night. She presents today with worsening of her shortness of breath requiring more oxygen. In the emergency room chest x-ray consistent with likely CHF and BNP is elevated. Received 40 of Lasix x2 with good diuresis and is improved. 1. HFpEF -continue Lasix 40 mg IV daily -cardiology consultation .... Does not feel cardiac in nature. Extensive workup at [facility]; no need for echo -monitor on telemetry. -follow renals/divalents 2. Pulmonary infiltrate -ceftriaxone/doxycycline (1) -Solu-Medrol 60 mg IV q.6 hours -BiPAP as per Pulmonary 4. Paroxysmal atrial fibrillation -continue Eliquis 5 mg b.i.d. -telemetry -rate control as indicated 5. Hypertension -acceptable control on current therapies -adjust as indicated Eliquis Full Code Patient will require ongoing hospitalization to treat pneumonia with IV antibiotics Quality Stroke Does the patient have a stroke diagnosis?: No VTE Prior VTE?: No VTE Risk Level:: Medical - moderate - high VTE Device Contraindication: Treatment Not Indicated VTE Drug Contraindication: N/A - Med Ordered
[2024-09-27] MEDS: Acetaminophen 325 MG TABLET 650 MG PO (15:43)
[2024-09-27] MEDS: lamoTRIgine 100 MG TABLET 300 MG PO (21:40)
[2024-09-27] MEDS: Mirtazapine 15 MG TABLET PO (21:40)
[2024-09-27] MEDS: Montelukast Sodium 10 MG TABLET PO (21:40)
[2024-09-28] VITALS (10 sets, daily range): BP systolic 116–154; BP diastolic 57–72; PULSE 60–88; RESP 14–24; TEMP 36.4–36.9; O2SAT 91–95
[2024-09-28] MEDS: methylPREDNISolone Sod Succ 125 MG/2 ML VIAL 60 MG IVPUSH ×4 (03:30→20:30)
[2024-09-28] MEDS: Omeprazole 20 MG CAPSULE.DR PO (06:41)
[2024-09-28 06:56] LABS: Alanine Aminotransferase 8 U/L (0-31); Albumin Level 3.7 g/dL (3.5-5.0); Alkaline Phosphatase 60 U/L (39-117); Anion Gap 16 (12-20); Aspartate Amino Transferase 21 U/L (5-31); Bilirubin Total 0.2 mg/dL (0.0-1.0); Blood Urea Nitrogen 33 mg/dL (9-16); Calcium 8.9 mg/dL (8.4-10.2); Carbon Dioxide 38 mmol/L (22-29); Chloride 95 mmol/L (96-108); Estimated Glomerular Filt Rate 49; Glucose Fasting 133 mg/dL (60-99); Potassium 4.1 mmol/L (3.3-5.1); Sodium 145 mmol/L (135-145); Total Protein 6.5 g/dL (6.5-8.0)
[2024-09-28 07:03] LABS: Basophils Percent Auto 0.1 % (0-2); Hematocrit 28.6 % (37.0-47.0); Imm Gran Abs Auto 0.05 X10*3/uL (0.00-0.03); Imm Gran Pct Auto 0.7 % (0.0-0.4); Lymphocytes Absolute Auto 0.4 X10*3/uL (1.2-4.9); Lymphocytes Percent Auto 5.7 % (20-40); MANUAL DIFF FLAG SCAN; Mean Corpuscular HGB Conc 31.5 g/dl (31.0-35.0); Mean Corpuscular Hemoglobin 29.8 pg (27.0-33.0); Mean Corpuscular Volume 94.7 fL (80.0-98.0); Mean Platelet Volume 9.7 fL (9.4-12.3); Monocytes Absolute Auto 0.1 X10*3/uL (0.1-1.2); Monocytes Percent Auto 1.9 % (2-11); Neutrophils Absolute Auto 6.2 x10*3/uL (2.0-8.3); Neutrophils Percent Auto 91.6 % (45-73); Platelet Count 409 X10*3/uL (160-400); Red Blood Count 3.02 X10*6/uL (4.20-5.50); Red Cell Distribution Width 15.1 % (11.0-16.0); SCAN SMEAR FLAG 1; White Blood Count 6.7 X10*3/uL (4.8-10.8)
[2024-09-28 07:24] LABS: SLIDE REVIEW VERIFIED
[2024-09-28] MEDS: Salmeterol Xinafoate 50 MCG BLST.W.DEV 1 PUFF INHALE ×2 (07:24→19:17)
[2024-09-28] MEDS: Fluticasone/Vilanterol 200/25 BLST.W.DEV 1 PUFF INHALE (07:26)
[2024-09-28 08:59] LABS: VBG Base Excess 17.9 mmol/L; VBG HCO3 46 mmol/L (22-26); VBG pCO2 76 mmHg; VBG pH 7.38 (7.32-7.43); VBG pO2 46 mmHg
[2024-09-28 09:06] LABS: Venous Blood Gas Refer to POC result
[2024-09-28] MEDS: Aspirin Enteric Coated 81 MG TABLET.DR PO (09:39)
[2024-09-28] MEDS: Gabapentin 100 MG CAPSULE PO ×3 (09:39→20:30)
[2024-09-28] MEDS: lamoTRIgine 100 MG TABLET 200 MG PO (09:39)
[2024-09-28] MEDS: ARIPiprazole 10 MG TABLET PO (09:39)
[2024-09-28] MEDS: Vilazodone HCL 40 MG TABLET PO (09:39)
[2024-09-28] MEDS: Metoprolol Succinate ER 100 MG TAB.ER.24H PO (09:40)
[2024-09-28] MEDS: Apixaban 5 MG TABLET PO ×2 (09:40→20:30)
[2024-09-28] MEDS: 0.9 % Sodium Chloride Flush 3 ML SYRINGE IVFLUSH ×3 (09:40→20:31)
[2024-09-28] MEDS: cefTRIAXone sodium 1 GM VIAL IVPUSH (09:40)
[2024-09-28] MEDS: Furosemide 40 MG/4 ML VIAL IVPUSH (09:43)
[2024-09-28] MEDS: Doxycycline Hyclate 100 MG in 0.9 % Sodium Chloride 250 ML 166.67 MG IV ×2 (12:16→23:18)
--- NOTE | 2024-09-28 14:20 | MHC.CM.PN ---
Addendum entered by Marya Goncalves 09/28/24 14:25: RN provided [facility] nurse, Isamar's phone #[phone]. Original Note: No discharge today. Patient continues to require IV ABX. DP return to [facility]. Her son/HCP will provide transportation home.
--- NOTE | 2024-09-28 15:44 | P.PNIM_ITS ---
Subjective Subjective Date of Service: 09/28/24 Interval History: No acute issues overnight. Slowly improving Review of Systems Admits to shortness of breath that is worse than baseline Denies chest pain Denies nausea vomiting diarrhea Denies fever chills Physical Exam 2 Vital Signs: Vital Signs: Last Vital Signs Temp 98.4 F 09/28/24 11:04 Pulse 72 09/28/24 11:04 Resp 14 09/28/24 11:04 BP 116/57 L 09/28/24 11:04 Pulse Ox 91 L 09/28/24 11:04 O2 Del Method Nasal Cannula 09/28/24 11:04 O2 Flow Rate 3 09/28/24 11:04 FiO2 40 09/28/24 03:26 Oxygen Flow Rate 15 09/26/24 10:37 BMI result Body Mass Index 33.9 Const: Other: Awake alert; tolerating BiPAP Resp: Other: Diminished at bases with bilateral basilar crackles Cardio: Other: No S4; positive S1-S2; no S3 murmurs rubs or gallops GI: Other: Soft nontender nondistended normoactive bowel sounds Neuro: Other: Cranial nerves 2-12 grossly intact as tested. Motor is 5/5 all extremities sensation is intact Extrem: Other: No edema bilaterally Objective Data Active Medications Acetaminophen (Acetaminophen 325 Mg Tablet) 650 mg PO Q6H PRN PRN Reason: Pain, Mild (Pain Scale 1-3), fever or headache Last Admin: 09/27/24 15:43 Dose: 650 mg Documented By: MARY Albuterol Sulfate (Albuterol Sulfate (0.083%) 2.5 Mg/3 Ml Vial.Neb) 2.5 mg INHALE Q6H PRN PRN Reason: wheezing Apixaban (Apixaban 5 Mg Tablet) 5 mg PO BID COUNTS INCLUDE 234 BEDS AT THE [facility] Last Admin: 09/28/24 09:40 Dose: 5 mg Documented By: MARY Aripiprazole (Aripiprazole 10 Mg Tablet) 10 mg PO DAILY COUNTS INCLUDE 234 BEDS AT THE [facility] Last Admin: 09/28/24 09:39 Dose: 10 mg Documented By: MARY Aspirin (Aspirin Enteric Coated 81 Mg Tablet.) 81 mg PO DAILY COUNTS INCLUDE 234 BEDS AT THE [facility] Last Admin: 09/28/24 09:39 Dose: 81 mg Documented By: MARY Calcium Carbonate (Calcium Carbonate 750 Mg Tab.Chew) 750 mg PO Q4H PRN PRN Reason: Heartburn Ceftriaxone Sodium (Ceftriaxone Sodium 1 Gm Vial) 1 gm IVPUSH Q24H COUNTS INCLUDE 234 BEDS AT THE [facility] Last Admin: 09/28/24 09:40 Dose: 1 gm Documented By: MARY Fluticasone/Vilanterol (Fluticasone/Vilanterol 200/25 Blst.W.Dev) 1 puff INHALE RDAILY COUNTS INCLUDE 234 BEDS AT THE [facility] Last Admin: 09/28/24 07:26 Dose: 1 puff Documented By: ANGELICA Furosemide (Furosemide 40 Mg/4 Ml Vial) 40 mg IVPUSH DAILY COUNTS INCLUDE 234 BEDS AT THE [facility]; Protocol Last Admin: 09/28/24 09:43 Dose: 40 mg Documented By: MARY Gabapentin (Gabapentin 100 Mg Capsule) 100 mg PO TID COUNTS INCLUDE 234 BEDS AT THE [facility] Last Admin: 09/28/24 15:25 Dose: 100 mg Documented By: MARY Doxycycline Hyclate 100 mg/ (Sodium Chloride) 250 mls @ 166.67 mls/hr IV Q12H COUNTS INCLUDE 234 BEDS AT THE [facility] Last Infusion: 09/28/24 13:59 Dose: Infused Documented By: MARY Lamotrigine (Lamotrigine 100 Mg Tablet) 300 mg PO BEDTIME COUNTS INCLUDE 234 BEDS AT THE [facility] Last Admin: 09/27/24 21:40 Dose: 300 mg Documented By: ERUM Lamotrigine (Lamotrigine 100 Mg Tablet) 200 mg PO DAILY COUNTS INCLUDE 234 BEDS AT THE [facility] Last Admin: 09/28/24 09:39 Dose: 200 mg Documented By: MARY Magnesium Hydroxide (Milk Of Magnesia 30 Ml Oral.Susp) 30 ml PO DAILY PRN PRN Reason: Constipation Melatonin (Melatonin 3 Mg Tablet) 6 mg PO BEDTIME PRN PRN Reason: Insomnia Methylprednisolone Sodium Succinate (Methylprednisolone Sod Succ 125 Mg/2 Ml Vial) 60 mg IVPUSH Q6H COUNTS INCLUDE 234 BEDS AT THE [facility] Last Admin: 09/28/24 15:24 Dose: 60 mg Documented By: MARY Metoprolol Succinate (Metoprolol Succinate Er 100 Mg Tab.Er.24h) 100 mg PO DAILY COUNTS INCLUDE 234 BEDS AT THE [facility]; Protocol Last Admin: 09/28/24 09:40 Dose: 100 mg Documented By: MARY Mirtazapine (Mirtazapine 15 Mg Tablet) 15 mg PO BEDTIME COUNTS INCLUDE 234 BEDS AT THE [facility] Last Admin: 09/27/24 21:40 Dose: 15 mg Documented By: ERUM Montelukast Sodium (Montelukast Sodium 10 Mg Tablet) 10 mg PO BEDTIME COUNTS INCLUDE 234 BEDS AT THE [facility] Last Admin: 09/27/24 21:40 Dose: 10 mg Documented By: ERUM Omeprazole (Omeprazole 20 Mg Capsule.) 20 mg PO DAILY@0630 COUNTS INCLUDE 234 BEDS AT THE [facility] Last Admin: 09/28/24 06:41 Dose: 20 mg Documented By: ERUM Ondansetron HCl (Ondansetron Hcl 4 Mg/2 Ml Vial) 4 mg IVPUSH Q8H PRN PRN Reason: Nausea and Vomiting Salmeterol Xinafoate (Salmeterol Xinafoate 50 Mcg Blst.W.Dev) 1 puff INHALE RBID COUNTS INCLUDE 234 BEDS AT THE [facility] Last Admin: 09/28/24 07:24 Dose: 1 puff Documented By: ANGELICA Sodium Chloride (0.9 % Sodium Chloride Flush 3 Ml Syringe) 3 ml IVFLUSH QSHIFT COUNTS INCLUDE 234 BEDS AT THE [facility] Last Admin: 09/28/24 15:26 Dose: 3 ml Documented By: MARY Vilazodone HCl (Vilazodone Hcl 40 Mg Tablet) 40 mg PO DAILY COUNTS INCLUDE 234 BEDS AT THE [facility] Last Admin: 09/28/24 09:39 Dose: 40 mg Documented By: MARY Labs 09/28/24 06:08 09/28/24 06:08 Labs: Laboratory Results - last 24 hr 09/28/24 09/28/24 06:08 08:54 MCV 94.7 MCH 29.8 MCHC 31.5 RDW 15.1 Plt Count 409 H MPV 9.7 Immature Gran % (Auto) 0.7 H Neut % (Auto) 91.6 H Lymph % (Auto) 5.7 L Mora % (Auto) 1.9 L Eos % (Auto) 0.0 Baso % (Auto) 0.1 Lymph # (Auto) 0.4 L Mora # (Auto) 0.1 Eos # (Auto) 0.0 Baso # (Auto) 0.0 Abs Immat Gran (auto) 0.05 H Absolute Neuts (auto) 6.2 Absolute Nucleated RBC 0.000 Nucleated RBC % (auto) 0.0 Smear Tech's Comments VERIFIED VBG pH 7.38 VBG pCO2 76 VBG pO2 46 VBG HCO3 46 H VBG O2 Saturation 64.0 VBG Base Excess 17.9 Anion Gap 16 Estim Creat Clear Calc 53.0 Estimated GFR 49 Fasting Glucose 133 H Calcium 8.9 Total Bilirubin 0.2 AST 21 ALT 8 Alkaline Phosphatase 60 Total Protein 6.5 Albumin 3.7 Microbiology Microbiology Results: Microbiology 09/26/24 11:03 Blood Culture - Preliminary Blood - Venous No growth after 48 hours. 09/26/24 11:03 Blood Culture - Preliminary Blood - Venous No growth after 48 hours. Assessment and Plan (1) Paroxysmal atrial fibrillation: Status: Acute (2) Acute on chronic heart failure with preserved ejection fraction (HFpEF): Status: Acute Plan 69-year-old female recently admitted 08/20 through 08/23/2024 for exacerbation of COPD. Patient has a past medical history significant for chronic hypoxic hypercapnic respiratory failure secondary to COPD and is on 3 L of oxygen at baseline at rest 6 L during activity and BiPAP at night. She presents today with worsening of her shortness of breath requiring more oxygen. In the emergency room chest x-ray consistent with likely CHF and BNP is elevated. Received 40 of Lasix x2 with good diuresis and is improved. 1. HFpEF -continue Lasix 40 mg IV daily -switch to p.o. in a.m. -monitor on telemetry. -follow renals/divalents 2. Pulmonary infiltrate -ceftriaxone/doxycycline (2) -Solu-Medrol 60 mg IV q.6 hours... Switch to p.o. in a.m. -BiPAP as per Pulmonary 4. Paroxysmal atrial fibrillation -continue Eliquis 5 mg b.i.d. -telemetry -rate control as indicated 5. Hypertension -acceptable control on current therapies -adjust as indicated Eliquis Full Code Patient will require ongoing hospitalization to treat pneumonia with IV antibiotics Quality Stroke Does the patient have a stroke diagnosis?: No VTE Prior VTE?: No VTE Risk Level:: Medical - moderate - high VTE Device Contraindication: Treatment Not Indicated VTE Drug Contraindication: N/A - Med Ordered
--- NOTE | 2024-09-28 18:15 | PC.NURSE ---
jeannine from [facility] called requesting that patient not be discharged this weekend as they do not have plans in place to accept her. jeannine is asking that she be called regarding any dc plans as patient has a tendency to make her own dc plans, get a ride to the [facility] and arrive unannounced causing much confusion as they have no orders, no idea of any med changes etc.. rn spoke with patient, patient became slightly agitated stating that they can take me over the weekend and that just isn't true . RN advised patient that yes they can take her but when they are ready for her, it is not that they won't take her back (which has been a concern of hers) but that they want to be ready for her when she arrives. patient voiced understanding of discussion
[2024-09-28] MEDS: Montelukast Sodium 10 MG TABLET PO (20:30)
[2024-09-28] MEDS: lamoTRIgine 100 MG TABLET 300 MG PO (20:30)
[2024-09-28] MEDS: Mirtazapine 15 MG TABLET PO (20:30)
[2024-09-29] VITALS (12 sets, daily range): BP systolic 128–134; BP diastolic 63–70; PULSE 58–84; RESP 16–22; TEMP 36.1–37; O2SAT 92–99
[2024-09-29] MEDS: methylPREDNISolone Sod Succ 125 MG/2 ML VIAL 60 MG IVPUSH (03:49)
[2024-09-29] MEDS: Omeprazole 20 MG CAPSULE.DR PO (06:33)
[2024-09-29 07:46] LABS: MANUAL DIFF FLAG NO
[2024-09-29 07:56] LABS: Basophils Percent Auto 0.1 % (0-2); Hematocrit 29.9 % (37.0-47.0); Hemoglobin 9.2 g/dl (12.0-16.0); Imm Gran Abs Auto 0.07 X10*3/uL (0.00-0.03); Imm Gran Pct Auto 0.8 % (0.0-0.4); Lymphocytes Absolute Auto 0.4 X10*3/uL (1.2-4.9); Lymphocytes Percent Auto 4.9 % (20-40); Mean Corpuscular HGB Conc 30.8 g/dl (31.0-35.0); Mean Corpuscular Hemoglobin 29.1 pg (27.0-33.0); Mean Corpuscular Volume 94.6 fL (80.0-98.0); Mean Platelet Volume 9.8 fL (9.4-12.3); Monocytes Absolute Auto 0.7 X10*3/uL (0.1-1.2); Neutrophils Absolute Auto 7.7 x10*3/uL (2.0-8.3); Neutrophils Percent Auto 86.2 % (45-73); Platelet Count 446 X10*3/uL (160-400); Red Blood Count 3.16 X10*6/uL (4.20-5.50); Red Cell Distribution Width 15.1 % (11.0-16.0); White Blood Count 8.9 X10*3/uL (4.8-10.8)
[2024-09-29] MEDS: Salmeterol Xinafoate 50 MCG BLST.W.DEV 1 PUFF INHALE ×2 (07:56→19:35)
[2024-09-29] MEDS: Fluticasone/Vilanterol 200/25 BLST.W.DEV 1 PUFF INHALE (07:56)
[2024-09-29 08:08] LABS: Alanine Aminotransferase 9 U/L (0-31); Albumin Level 3.8 g/dL (3.5-5.0); Alkaline Phosphatase 70 U/L (39-117); Anion Gap 15 (12-20); Aspartate Amino Transferase 19 U/L (5-31); Bilirubin Total 0.2 mg/dL (0.0-1.0); Blood Urea Nitrogen 33 mg/dL (9-16); Calcium 8.2 mg/dL (8.4-10.2); Carbon Dioxide 37 mmol/L (22-29); Chloride 94 mmol/L (96-108); Creatinine Clr Calc Pharmacy 64.6; Estimated Glomerular Filt Rate > 60; Glucose Fasting 104 mg/dL (60-99); Potassium 3.8 mmol/L (3.3-5.1); Sodium 142 mmol/L (135-145); Total Protein 6.5 g/dL (6.5-8.0)
[2024-09-29] MEDS: cefTRIAXone sodium 1 GM VIAL IVPUSH (10:07)
[2024-09-29] MEDS: Furosemide 40 MG/4 ML VIAL IVPUSH (10:07)
[2024-09-29] MEDS: ARIPiprazole 10 MG TABLET PO (10:08)
[2024-09-29] MEDS: Vilazodone HCL 40 MG TABLET PO (10:08)
[2024-09-29] MEDS: 0.9 % Sodium Chloride Flush 3 ML SYRINGE IVFLUSH ×3 (10:08→20:11)
[2024-09-29] MEDS: methylPREDNISolone Sod Succ 125 MG/2 ML VIAL 40 MG IVPUSH ×2 (10:08→20:11)
[2024-09-29] MEDS: Apixaban 5 MG TABLET PO ×2 (10:09→20:10)
[2024-09-29] MEDS: Metoprolol Succinate ER 100 MG TAB.ER.24H PO (10:09)
[2024-09-29] MEDS: Aspirin Enteric Coated 81 MG TABLET.DR PO (10:09)
[2024-09-29] MEDS: Gabapentin 100 MG CAPSULE PO ×3 (10:09→20:11)
[2024-09-29] MEDS: lamoTRIgine 100 MG TABLET 200 MG PO (10:09)
[2024-09-29] MEDS: Doxycycline Hyclate 100 MG in 0.9 % Sodium Chloride 250 ML 166.67 MG IV ×2 (12:33→23:26)
--- NOTE | 2024-09-29 14:49 | HO.PM.IMPN ---
Subjective Subjective Date of Service: 09/29/24 Interval History: Being followed for pneumonia, Complaining of shortness of breath with activity, denies fever, no chills tolerating diet with no nausea, no abdominal pain or diarrhea. Review of Systems All other system reviewed and are negative. Physical Exam Vital Signs: Vital Signs: Last Vital Signs Temp 97.3 F 09/29/24 12:00 Pulse 58 09/29/24 12:00 Resp 18 09/29/24 12:00 BP 130/63 09/29/24 12:00 Pulse Ox 99 09/29/24 12:00 O2 Del Method Nasal Cannula 09/29/24 12:00 O2 Flow Rate 3 09/29/24 12:00 FiO2 40 09/29/24 03:43 Oxygen Flow Rate 15 09/26/24 10:37 BMI result Body Mass Index 33.9 Const: Other: Gen: in no acute distress HEENT: sclera anicteric, moist mucus membranes Neck: supple Lungs: diminished breath sounds Heart: regular rate and rhythm, no murmurs Abd: soft, non-tender, non-distended Ext: no edema Skin: warm/well-perfused Neuro: alert and oriented x3, no focal findings Psych: appropriate affect Objective Data Active Medications Acetaminophen (Acetaminophen 325 Mg Tablet) 650 mg PO Q6H PRN PRN Reason: Pain, Mild (Pain Scale 1-3), fever or headache Last Admin: 09/27/24 15:43 Dose: 650 mg Documented By: MARY Albuterol Sulfate (Albuterol Sulfate (0.083%) 2.5 Mg/3 Ml Vial.Kb) 2.5 mg INHALE Q6H PRN PRN Reason: wheezing Apixaban (Apixaban 5 Mg Tablet) 5 mg PO BID [facility] Last Admin: 09/29/24 10:09 Dose: 5 mg Documented By: JENNY Aripiprazole (Aripiprazole 10 Mg Tablet) 10 mg PO DAILY [facility] Last Admin: 09/29/24 10:08 Dose: 10 mg Documented By: JENNY Aspirin (Aspirin Enteric Coated 81 Mg Tablet.) 81 mg PO DAILY [facility] Last Admin: 09/29/24 10:09 Dose: 81 mg Documented By: JENNY Calcium Carbonate (Calcium Carbonate 750 Mg Tab.Chew) 750 mg PO Q4H PRN PRN Reason: Heartburn Ceftriaxone Sodium (Ceftriaxone Sodium 1 Gm Vial) 1 gm IVPUSH Q24H [facility] Last Admin: 09/29/24 10:07 Dose: 1 gm Documented By: JENNY Fluticasone/Vilanterol (Fluticasone/Vilanterol 200/25 Blst.W.Dev) 1 puff INHALE RDAILY [facility] Last Admin: 09/29/24 07:56 Dose: 1 puff Documented By: SCOVILH Furosemide (Furosemide 40 Mg/4 Ml Vial) 40 mg IVPUSH DAILY [facility]; Protocol Last Admin: 09/29/24 10:07 Dose: 40 mg Documented By: JENNY Gabapentin (Gabapentin 100 Mg Capsule) 100 mg PO TID [facility] Last Admin: 09/29/24 10:09 Dose: 100 mg Documented By: JENNY Doxycycline Hyclate 100 mg/ (Sodium Chloride) 250 mls @ 166.67 mls/hr IV Q12H [facility] Last Infusion: 09/29/24 14:11 Dose: Infused Documented By: JENNY Lamotrigine (Lamotrigine 100 Mg Tablet) 300 mg PO BEDTIME [facility] Last Admin: 09/28/24 20:30 Dose: 300 mg Documented By: ANTOIC Lamotrigine (Lamotrigine 100 Mg Tablet) 200 mg PO DAILY [facility] Last Admin: 09/29/24 10:09 Dose: 200 mg Documented By: JENNY Magnesium Hydroxide (Milk Of Magnesia 30 Ml Oral.Susp) 30 ml PO DAILY PRN PRN Reason: Constipation Melatonin (Melatonin 3 Mg Tablet) 6 mg PO BEDTIME PRN PRN Reason: Insomnia Methylprednisolone Sodium Succinate (Methylprednisolone Sod Succ 125 Mg/2 Ml Vial) 40 mg IVPUSH BID [facility] Last Admin: 09/29/24 10:08 Dose: 40 mg Documented By: JENNY Metoprolol Succinate (Metoprolol Succinate Er 100 Mg Tab.Er.24h) 100 mg PO DAILY [facility]; Protocol Last Admin: 09/29/24 10:09 Dose: 100 mg Documented By: JENNY Mirtazapine (Mirtazapine 15 Mg Tablet) 15 mg PO BEDTIME [facility] Last Admin: 09/28/24 20:30 Dose: 15 mg Documented By: ANTOIC Montelukast Sodium (Montelukast Sodium 10 Mg Tablet) 10 mg PO BEDTIME [facility] Last Admin: 09/28/24 20:30 Dose: 10 mg Documented By: ANTILDA Omeprazole (Omeprazole 20 Mg Capsule.Dr) 20 mg PO DAILY@0630 [facility] Last Admin: 09/29/24 06:33 Dose: 20 mg Documented By: ANTILDA Ondansetron HCl (Ondansetron Hcl 4 Mg/2 Ml Vial) 4 mg IVPUSH Q8H PRN PRN Reason: Nausea and Vomiting Salmeterol Xinafoate (Salmeterol Xinafoate 50 Mcg Blst.W.Dev) 1 puff INHALE RBID [facility] Last Admin: 09/29/24 07:56 Dose: 1 puff Documented By: SCOVILHerman Sodium Chloride (0.9 % Sodium Chloride Flush 3 Ml Syringe) 3 ml IVFLUSH QSHIFT [facility] Last Admin: 09/29/24 10:08 Dose: 3 ml Documented By: JENNY Vilazodone HCl (Vilazodone Hcl 40 Mg Tablet) 40 mg PO DAILY [facility] Last Admin: 09/29/24 10:08 Dose: 40 mg Documented By: JENNY Labs 09/29/24 06:59 09/29/24 06:59 Labs: Laboratory Results - last 24 hr 09/29/24 06:59 MCV 94.6 MCH 29.1 MCHC 30.8 L RDW 15.1 Plt Count 446 H MPV 9.8 Immature Gran % (Auto) 0.8 H Neut % (Auto) 86.2 H Lymph % (Auto) 4.9 L Adams % (Auto) 8.0 Eos % (Auto) 0.0 Baso % (Auto) 0.1 Lymph # (Auto) 0.4 L Adams # (Auto) 0.7 Eos # (Auto) 0.0 Baso # (Auto) 0.0 Abs Immat Gran (auto) 0.07 H Absolute Neuts (auto) 7.7 Absolute Nucleated RBC 0.000 Nucleated RBC % (auto) 0.0 Anion Gap 15 Estim Creat Clear Calc 64.6 Estimated GFR > 60 Fasting Glucose 104 H Calcium 8.2 L D Total Bilirubin 0.2 AST 19 ALT 9 Alkaline Phosphatase 70 Total Protein 6.5 Albumin 3.8 Microbiology Microbiology Results: Microbiology 09/26/24 11:03 Blood Culture - Preliminary Blood - Venous No growth after 48 hours. 09/26/24 11:03 Blood Culture - Preliminary Blood - Venous No growth after 48 hours. Assessment and Plan (1) Acute exacerbation of chronic obstructive pulmonary disease (COPD): Status: Acute Plan 69-year-old female recently admitted 08/20 through 08/23/2024 for exacerbation of COPD. Patient has a past medical history significant for chronic hypoxic hypercapnic respiratory failure secondary to COPD and is on 3 L of oxygen at baseline at rest 6 L during activity and BiPAP at night. She presents today with worsening of her shortness of breath requiring more oxygen. In the emergency room chest x-ray consistent with likely CHF and BNP is elevated. Received 40 of Lasix x2 with good diuresis and is improved. 1. HFpEF -feeling better, on Lasix 40 mg IV daily, will transition to by mouth Lasix -BNP 348, will follow BMP and BNP, >3 L negative -monitor on telemetry. 2. Acute COPD exacerbation due to Bilateral patchy opacities consistent with pneumonia with chronic hypoxic and hypercapnic respiratory failure -on iv ceftriaxone started on 09/27/doxycycline started on 09/28 -on IV Solu-Medrol 60 mg q.6 hours... Will wean IV steroids to 40 bid -BiPAP -ambulate as tolerated -currently on baseline oxygen 4. Paroxysmal atrial fibrillation -continue metoprolol XL 100 mg daily and Eliquis 5 mg b.i.d. -telemetry -rate control as indicated 5. Hypertension -acceptable control on metoprolol and Lasix -adjust as indicated 6. Grade 1 obesity recommend low-calorie diet Eliquis Full Code Patient will require ongoing hospitalization to treat pneumonia with IV antibiotics and on IV diuretics for CHF. Quality Stroke Does the patient have a stroke diagnosis?: No VTE Prior VTE?: No VTE Risk Level:: Medical - moderate - high VTE Device Contraindication: Treatment Not Indicated VTE Drug Contraindication: N/A - Med Ordered
[2024-09-29] MEDS: Milk of Magnesia 30 ML ORAL.SUSP PO (15:38)
[2024-09-29] MEDS: Mirtazapine 15 MG TABLET PO (20:10)
[2024-09-29] MEDS: Montelukast Sodium 10 MG TABLET PO (20:11)
[2024-09-29] MEDS: lamoTRIgine 100 MG TABLET 300 MG PO (20:11)
[2024-09-30] VITALS (10 sets, daily range): BP systolic 144–158; BP diastolic 64–74; PULSE 58–95; RESP 16–21; TEMP 36.2–36.9; O2SAT 58–97
[2024-09-30] MEDS: Omeprazole 20 MG CAPSULE.DR PO (05:54)
[2024-09-30 07:40] LABS: Anion Gap 15 (12-20); Blood Urea Nitrogen 29 mg/dL (9-16); Calcium 8.6 mg/dL (8.4-10.2); Carbon Dioxide 37 mmol/L (22-29); Chloride 96 mmol/L (96-108); Estimated Glomerular Filt Rate > 60; Glucose Random 89 mg/dL (60-115); Potassium 4.5 mmol/L (3.3-5.1); Sodium 143 mmol/L (135-145)
[2024-09-30] MEDS: Salmeterol Xinafoate 50 MCG BLST.W.DEV 1 PUFF INHALE ×2 (07:42→20:27)
[2024-09-30] MEDS: Fluticasone/Vilanterol 200/25 BLST.W.DEV 1 PUFF INHALE (07:42)
[2024-09-30 07:47] LABS: B Type Natriuretic Peptide 506 pg/mL (<100)
[2024-09-30] MEDS: ARIPiprazole 10 MG TABLET PO (08:05)
[2024-09-30] MEDS: Apixaban 5 MG TABLET PO ×2 (08:05→20:48)
[2024-09-30] MEDS: 0.9 % Sodium Chloride Flush 3 ML SYRINGE IVFLUSH ×3 (08:05→20:48)
[2024-09-30] MEDS: Doxycycline Monohydrate 100 MG CAPSULE PO ×2 (08:05→20:47)
[2024-09-30] MEDS: Aspirin Enteric Coated 81 MG TABLET.DR PO (08:05)
[2024-09-30] MEDS: lamoTRIgine 100 MG TABLET 200 MG PO (08:05)
[2024-09-30] MEDS: Furosemide 40 MG TABLET PO (08:06)
[2024-09-30] MEDS: Vilazodone HCL 40 MG TABLET PO (08:06)
[2024-09-30] MEDS: cefuroxime axetiL 500 MG TABLET PO ×2 (08:06→20:47)
[2024-09-30] MEDS: Gabapentin 100 MG CAPSULE PO ×3 (08:06→20:48)
[2024-09-30] MEDS: Metoprolol Succinate ER 100 MG TAB.ER.24H PO (08:06)
[2024-09-30] MEDS: methylPREDNISolone Sod Succ 125 MG/2 ML VIAL 40 MG IVPUSH (08:06)
--- NOTE | 2024-09-30 14:30 | HO.PM.IMPN ---
Subjective Subjective Date of Service: 09/30/24 Interval History: Being followed for right lower lobe pneumonia/heart failure with preserved EF Feeling better on home dose of oxygen 3 L denies worsening shortness of breath, no fevers no chills tolerating diet, no acute events overnight. Review of Systems All other symptoms reviewed and are negative. Physical Exam Vital Signs: Vital Signs: Last Vital Signs Temp 97.4 F 09/30/24 11:13 Pulse 66 09/30/24 11:13 Resp 20 09/30/24 11:13 BP 151/73 H 09/30/24 11:13 Pulse Ox 93 09/30/24 11:13 O2 Del Method Nasal Cannula 09/30/24 11:13 O2 Flow Rate 3 09/30/24 11:13 FiO2 40 09/29/24 03:43 Oxygen Flow Rate 15 09/26/24 10:37 BMI result Body Mass Index 33.9 Const: Other: Gen: in no acute distress HEENT: sclera anicteric, moist mucus membranes Neck: supple Lungs: diminished breath sounds Heart: regular rate and rhythm, no murmurs Abd: soft, non-tender, non-distended Ext: no edema Skin: warm/well-perfused Neuro: alert and oriented x3, no focal findings Psych: appropriate affect Objective Data Active Medications Acetaminophen (Acetaminophen 325 Mg Tablet) 650 mg PO Q6H PRN PRN Reason: Pain, Mild (Pain Scale 1-3), fever or headache Last Admin: 09/27/24 15:43 Dose: 650 mg Documented By: MARY Albuterol Sulfate (Albuterol Sulfate (0.083%) 2.5 Mg/3 Ml Vial.Kb) 2.5 mg INHALE Q6H PRN PRN Reason: wheezing Apixaban (Apixaban 5 Mg Tablet) 5 mg PO BID [facility] Last Admin: 09/30/24 08:05 Dose: 5 mg Documented By: JENNY Aripiprazole (Aripiprazole 10 Mg Tablet) 10 mg PO DAILY [facility] Last Admin: 09/30/24 08:05 Dose: 10 mg Documented By: JENNY Aspirin (Aspirin Enteric Coated 81 Mg Tablet.) 81 mg PO DAILY [facility] Last Admin: 09/30/24 08:05 Dose: 81 mg Documented By: JENNY Calcium Carbonate (Calcium Carbonate 750 Mg Tab.Chew) 750 mg PO Q4H PRN PRN Reason: Heartburn Cefuroxime Axetil (Cefuroxime Axetil 500 Mg Tablet) 500 mg PO Q12H [facility] Last Admin: 09/30/24 08:06 Dose: 500 mg Documented By: JENNY Doxycycline Monohydrate (Doxycycline Monohydrate 100 Mg Capsule) 100 mg PO Q12H [facility] Last Admin: 09/30/24 08:05 Dose: 100 mg Documented By: JENNY Fluticasone/Vilanterol (Fluticasone/Vilanterol 200/25 Blst.W.Dev) 1 puff INHALE RDAILY [facility] Last Admin: 09/30/24 07:42 Dose: 1 puff Documented By: EDWINA Furosemide (Furosemide 40 Mg Tablet) 40 mg PO DAILY [facility]; Protocol Last Admin: 09/30/24 08:06 Dose: 40 mg Documented By: JENNY Gabapentin (Gabapentin 100 Mg Capsule) 100 mg PO TID [facility] Last Admin: 09/30/24 08:06 Dose: 100 mg Documented By: JENNY Lamotrigine (Lamotrigine 100 Mg Tablet) 300 mg PO BEDTIME [facility] Last Admin: 09/29/24 20:11 Dose: 300 mg Documented By: ANTOIC Lamotrigine (Lamotrigine 100 Mg Tablet) 200 mg PO DAILY [facility] Last Admin: 09/30/24 08:05 Dose: 200 mg Documented By: JENNY Magnesium Hydroxide (Milk Of Magnesia 30 Ml Oral.Susp) 30 ml PO DAILY PRN PRN Reason: Constipation Last Admin: 09/29/24 15:38 Dose: 30 ml Documented By: JENNY Melatonin (Melatonin 3 Mg Tablet) 6 mg PO BEDTIME PRN PRN Reason: Insomnia Methylprednisolone Sodium Succinate (Methylprednisolone Sod Succ 125 Mg/2 Ml Vial) 40 mg IVPUSH BID [facility] Last Admin: 09/30/24 08:06 Dose: 40 mg Documented By: JENNY Metoprolol Succinate (Metoprolol Succinate Er 100 Mg Tab.Er.24h) 100 mg PO DAILY [facility]; Protocol Last Admin: 09/30/24 08:06 Dose: 100 mg Documented By: JENNY Mirtazapine (Mirtazapine 15 Mg Tablet) 15 mg PO BEDTIME [facility] Last Admin: 09/29/24 20:10 Dose: 15 mg Documented By: MELITONILDA Montelukast Sodium (Montelukast Sodium 10 Mg Tablet) 10 mg PO BEDTIME [facility] Last Admin: 09/29/24 20:11 Dose: 10 mg Documented By: ANTILDA Omeprazole (Omeprazole 20 Mg Capsule.) 20 mg PO DAILY@0630 [facility] Last Admin: 09/30/24 05:54 Dose: 20 mg Documented By: ANTILDA Ondansetron HCl (Ondansetron Hcl 4 Mg/2 Ml Vial) 4 mg IVPUSH Q8H PRN PRN Reason: Nausea and Vomiting Salmeterol Xinafoate (Salmeterol Xinafoate 50 Mcg Blst.W.Dev) 1 puff INHALE RBID [facility] Last Admin: 09/30/24 07:42 Dose: 1 puff Documented By: REILLPancho Sodium Chloride (0.9 % Sodium Chloride Flush 3 Ml Syringe) 3 ml IVFLUSH QSHIFT [facility] Last Admin: 09/30/24 08:05 Dose: 3 ml Documented By: JENNY Vilazodone HCl (Vilazodone Hcl 40 Mg Tablet) 40 mg PO DAILY [facility] Last Admin: 09/30/24 08:06 Dose: 40 mg Documented By: JENNY Labs 09/29/24 06:59 09/30/24 06:25 Labs: Laboratory Results - last 24 hr 09/30/24 06:25 Anion Gap 15 Estim Creat Clear Calc 70.0 Estimated GFR > 60 Random Glucose 89 Calcium 8.6 B-Natriuretic Peptide 506 H Assessment and Plan (1) Paroxysmal atrial fibrillation: Status: Acute (2) Acute exacerbation of chronic obstructive pulmonary disease (COPD): Status: Acute Plan 69-year-old female recently admitted 08/20 through 08/23/2024 for exacerbation of COPD. Patient has a past medical history significant for chronic hypoxic hypercapnic respiratory failure secondary to COPD and is on 3 L of oxygen at baseline at rest 6 L during activity and BiPAP at night. She presents today with worsening of her shortness of breath requiring more oxygen. In the emergency room chest x-ray consistent with likely CHF and BNP is elevated. Received 40 of Lasix x2 with good diuresis and is improved. 1. Acute on chronic CHF exacerbation due to HFpEF -feeling better, s/p Lasix 40 mg IV daily, transitioned to by mouth Lasix on 09/29 -BNP 348 on admission, repeat BNP 506 although clinically patient looks stable > 6 L negative -monitor on telemetry. 2. Acute COPD exacerbation due to Bilateral patchy opacities consistent with pneumonia with chronic hypoxic and hypercapnic respiratory failure -on iv ceftriaxone started on 09/27/doxycycline started on 09/28 -s/p IV Solu-Medrol 60 mg q.6 hours now on IV steroids to 40 bid, will transition to by mouth steroid at a.m. -BiPAP -ambulate as tolerated -currently on baseline oxygen 4. Paroxysmal atrial fibrillation -continue metoprolol XL 100 mg daily and Eliquis 5 mg b.i.d. stable ventricular rate 5. Hypertension -acceptable control on metoprolol and Lasix 6. Grade 1 obesity recommend low-calorie diet Eliquis Full Code Patient requiring continued inpatient hospitalization for management of acute CHF and COPD exacerbation with pneumonia requiring close medication adjustment and respiratory monitoring . Quality Stroke Does the patient have a stroke diagnosis?: No VTE Prior VTE?: No VTE Risk Level:: Medical - moderate - high VTE Device Contraindication: Treatment Not Indicated VTE Drug Contraindication: N/A - Med Ordered
[2024-09-30] MEDS: Mirtazapine 15 MG TABLET PO (20:47)
[2024-09-30] MEDS: lamoTRIgine 100 MG TABLET 300 MG PO (20:47)
[2024-09-30] MEDS: Montelukast Sodium 10 MG TABLET PO (20:48)
[2024-10-01] VITALS (8 sets, daily range): BP systolic 120–140; BP diastolic 60–71; PULSE 50–90; RESP 17–18; TEMP 36–36.3; O2SAT 92–99
[2024-10-01] MEDS: Omeprazole 20 MG CAPSULE.DR PO (06:41)
[2024-10-01 07:49] LABS: B Type Natriuretic Peptide 288 pg/mL (<100)
[2024-10-01] MEDS: Fluticasone/Vilanterol 200/25 BLST.W.DEV 1 PUFF INHALE (07:53)
[2024-10-01] MEDS: Salmeterol Xinafoate 50 MCG BLST.W.DEV 1 PUFF INHALE (07:54)
[2024-10-01] MEDS: cefuroxime axetiL 500 MG TABLET PO (08:20)
[2024-10-01] MEDS: ARIPiprazole 10 MG TABLET PO (08:20)
[2024-10-01] MEDS: Furosemide 40 MG TABLET PO (08:20)
[2024-10-01] MEDS: Vilazodone HCL 40 MG TABLET PO (08:20)
[2024-10-01] MEDS: Apixaban 5 MG TABLET PO (08:21)
[2024-10-01] MEDS: Doxycycline Monohydrate 100 MG CAPSULE PO (08:21)
[2024-10-01] MEDS: lamoTRIgine 100 MG TABLET 200 MG PO (08:21)
[2024-10-01] MEDS: Gabapentin 100 MG CAPSULE PO ×2 (08:21→15:13)
[2024-10-01] MEDS: Aspirin Enteric Coated 81 MG TABLET.DR PO (08:22)
[2024-10-01] MEDS: Metoprolol Succinate ER 100 MG TAB.ER.24H PO (09:10)
[2024-10-01] MEDS: 0.9 % Sodium Chloride Flush 3 ML SYRINGE IVFLUSH (09:12)
--- NOTE | 2024-10-01 10:16 | MHC.CM.PN ---
Per ROUNDS discussion, Patient is medically cleared for dc to return to her [facility] today. CM spoke with [facility] Director/Emani @ [phone], who requested that CM coordinate the dc with [facility] RN/Nivia @ [phone]. GENE left a detailed message for Nivia and awaits a return call.
[2024-10-01] MEDS: Calcium Carbonate 750 MG TAB.CHEW PO (11:46)
--- NOTE | 2024-10-01 11:58 | PM.DS ---
DS: Providers Provider Date of Service: 10/01/24 Date of admission: 09/26/24 14:21 Date of discharge: 10/01/24 Primary care physician: Yann Manzanares MD Consults: 09/26/24 14:25 Consult to Pulmonology Routine Consulting Provider: [facility] Pulmonology Services Reason for consultation: SOB Has provider been notified: No DS: Diagnosis Discharge Diagnosis (1) Paroxysmal atrial fibrillation: Status: Acute (2) Acute exacerbation of chronic obstructive pulmonary disease (COPD): Status: Acute DS: Summary Hospital Course Hospital Course: Date of Service: 09/26/24 Chief Complaint: Shortness of breath 69-year-old female with pertinent history of chronic hypoxic hypercapnic failure due to COPD on 3 L baseline oxygen at rest, 6 L during activity, BiPAP at night, hypertension, congestive heart failure, mood disorder, osteoporosis who presents to the emergency department shortness of breath x2 days. Patient states she was feeling short of breath yesterday and the symptoms got progressively worse. She states she had increased her oxygen to 4 L this morning with no improvement her symptoms. She also gave herself a nebulizer this morning with no improvement therefore she called 911. Paramedics report that initially on 4 L she was 90%. In route to the hospitalist she was given a DuoNeb in her O2 saturation dropped down the 70%. Here in the emergency department on 4 L of oxygen via nasal cannula O2 saturation was 57%. Patient was placed on an OxyMask at 15 liters/minute O2 saturation is 96%. In the emergency room, patient given 125 methylprednisolone DuoNebs and 40 mg of IV Lasix. Upon completion of the chest x-ray it was felt that this was more congestive heart failure and an additional 40 of Lasix was given with good results. At this point in time she will be admitted for further workup and treatment of her presenting complaint Hospital course: 69-year-old female with past medical history of chronic hypoxic/hypercapnic respiratory failure recently admitted 08/20 through 08/23/2024 for exacerbation of COPD,. Patient has a past medical history significant for chronic hypoxic hypercapnic respiratory failure secondary to COPD and on 3 L of oxygen at rest and 6 L during activity and BiPAP at night. She presented with worsening shortness of breath requiring more oxygen. In the emergency room chest x-ray consistent with likely CHF and elevated BNP. Received 40 of Lasix x2 with good diuresis and admitted to telemetry unit with the following medical issues 1. Acute on chronic CHF exacerbation due to HFpEF , patient treated with intravenous Lasix, with good response, is greater than 6 L negative BNP trended down, electrolytes and renal function are stable therefore she is being discharged home on Lasix 40 mg daily increased from home dose of 20 mg daily she is also recommend to take 10 mEq of potassium and follow BMP in 1 week, recommend to continue outpatient follow-up with pulmonology and cardiology, call for appointment. Strongly recommend to follow low-salt diet 2. Acute COPD exacerbation due to Bilateral patchy opacities consistent with pneumonia with chronic hypoxic and hypercapnic respiratory failure treated with IV ceftriaxone and IV doxycycline, intravenous Solu Medrol and updraft treatment, with good response she finish 5 day course of antibiotics, is now being discharged on tapering dose of steroids recommend to continue home inhalers in nighttime trilogy as before. 4. Paroxysmal atrial fibrillation recommend to continue metoprolol XL 100 mg daily and Eliquis 5 mg b.i.d. 5. Hypertension -acceptable control on metoprolol and Lasix 6. Grade 1 obesity recommend low-calorie diet Time Attestation Discharge Coordination Time (in mins): 36 Quality: Safe Use of Opioids Does Pt have an Active Cancer Diagnosis on the Problem List?: No Quality: Stroke Does the patient have a stroke diagnosis?: No Physical Exam Vital Signs: Vital Signs: Last Vital Signs Temp 97.0 F 10/01/24 11:22 Pulse 55 10/01/24 11:22 Resp 18 10/01/24 11:22 BP 140/63 H 10/01/24 11:22 Pulse Ox 94 10/01/24 11:22 O2 Del Method Nasal Cannula 10/01/24 11:22 O2 Flow Rate 3 10/01/24 11:22 FiO2 40 09/29/24 03:43 Oxygen Flow Rate 15 09/26/24 10:37 BMI result Body Mass Index 33.9 Const: Other: Gen: in no acute distress HEENT: sclera anicteric, moist mucus membranes Neck: supple Lungs: diminished breath sounds Heart: regular rate and rhythm, no murmurs Abd: soft, non-tender, non-distended Ext: no edema Skin: warm/well-perfused Neuro: alert and oriented x3, no focal findings Psych: appropriate affect DS: Data Data Completed and Pending Completed studies during hospitalization [Text1]: Procedures Assistance with Respiratory Ventilation, Less than 24 Consecutive Hours, Continuous Positive Airway Pressure (08/20/24) Labs on day of discharge: Laboratory Results - last 24 hr 10/01/24 07:07 B-Natriuretic Peptide 288 H Preliminary micro results at discharge 09/26/24 11:03 Blood Culture - Preliminary Blood - Venous No growth after 48 hours. 09/26/24 11:03 Blood Culture - Preliminary Blood - Venous No growth after 48 hours. Discharge Plan Discharge Anticipated Discharge Date/Time: 10/01/24 11:56 Patient Disposition: Home Health Service Discharge Diagnosis: Acute on chronic congestive heart failure exacerbation with preserved EF Acute COPD exacerbation with pneumonia Paroxysmal atrial fibrillation Referrals: [facility] [Outside] - 1 Week Yann Manzanares MD [Primary Care Provider] - 1 Week Discharge Medications: New furosemide 40 mg Tablet 40 mg PO DAILY Qty: 30 0RF Protocol: Hold for SBP< HOLD for SBP < : 90 potassium chloride 10 mEq capsule, extended release 10 meq PO DAILY Qty: 90 0RF prednisone 10 mg tablet 10 mg PO DIRECTED Qty: 15 0RF Rx Instructions: see taper instructions; 30 mg daily x2 days, 20 mg daily x2 days, 10 mg daily x5 days Continued acetaminophen 500 mg Tablet 1,000 mg PO Q8H PRN (Reason: Pain) aspirin 81 mg Tablet,Delayed Release (Dr/Ec) 81 mg PO DAILY alendronate [Fosamax] 70 mg Tablet 70 mg PO DOMINGUEZ lamotrigine 150 mg Tablet 300 mg PO BEDTIME montelukast 10 mg Tablet 10 mg PO BEDTIME albuterol sulfate [Proventil HFA] 90 mcg/actuation Hfa Aerosol Inhaler 2 puff INHALATION Q6H PRN (Reason: Respiratory Distress) cholecalciferol (vitamin D3) [Vitamin D3] 50 mcg (2,000 unit) Capsule 50 mcg PO DAILY mirtazapine 15 mg tablet 15 mg PO BEDTIME metoprolol succinate 50 mg Tablet Extended Release 24 Hr 100 mg PO DAILY betamethasone dipropionate 0.05 % cream 1 appl topical Q12H PRN (Reason: Dermititis ) Rx Instructions: to face cyclobenzaprine 5 mg tablet 5 mg PO Q8H PRN (Reason: Muscle Pain) lactulose 10 gram/15 mL solution 30 ml PO DAILY PRN (Reason: Constipation) Rx Instructions: If no BM in 2 days fluocinolone acetonide oil [DermOtic Oil] 0.01 % Drops 4 drp OTIC (EARS) Q48H diclofenac sodium 1 % gel 1 g topical Q12H PRN (Reason: Pain) theophylline 200 mg tablet extended release 12 hr 200 mg PO BID docusate sodium 100 mg capsule 100 mg PO DAILY PRN (Reason: Constipation) pantoprazole 40 mg tablet,delayed release (DR/EC) 40 mg PO DAILY@0630 fluticasone furoate-vilanterol [Breo Ellipta] 200-25 mcg/dose blister with device 1 inh INHALATION DAILY albuterol sulfate 2.5 mg /3 mL (0.083 %) solution for nebulization 2.5 mg inhalation Q6H PRN (Reason: wheezing) calcium carbonate-vitamin D3 [Oyster Shell Calcium-Vit D3] 500 mg-10 mcg (400 unit) Tablet 1 tab PO BID lamotrigine 200 mg Tablet 200 mg PO DAILY Serevent Diskus 50 mcg/dose Blister With Device 1 inh INHALATION BID mineral oil Oil 1 appl TOPICAL Q48H PRN (Reason: eczema) Rx Instructions: apply to both outer ears topically aripiprazole 10 mg tablet 10 mg PO DAILY omega [id number]-fish oil [Fish Oil] 1,000 mg (120 mg-180 mg) Capsule 1 cap PO BID Eliquis 5 mg tablet 5 mg PO BID sennosides [Senokot] 8.6 mg tablet 8.6 mg PO BEDTIME Rx Instructions: Hold for loose stools gabapentin 100 mg capsule 100 mg PO TID (DME) nebulizers [facility] See Rx Instructions .Route Rx Instructions: As directed fluticasone propionate 50 mcg/actuation spray,suspension 1 spray intranasal DAILY vilazodone 40 mg tablet 40 mg PO DAILY (DME) Oxygen Home Use Kit See Rx Instructions .Route Rx Instructions: As directed Discontinued meloxicam 15 mg tablet 15 mg PO DAILY furosemide 20 mg tablet 20 mg PO DAILY Protocol: Hold for SBP< HOLD for SBP < : 90 Rx Instructions: increase from 20 mg daily Discharge Orders: Discharge Order (Routine); Ordered 10/01/24 Ordered By: Neptali Curry Diet: Low salt diet Activity on Discharge: As tolerated Stand Alone Forms: Patient Portal Discharge page Print Language: [place] Other Ambulatory Orders: Basic Metabolic Panel (Routine) Timeframe: 1 Week Facility: [facility] - Location: Laboratory Ordered By: Neptali Curry Care Plan Goals: Take prednisone tapering dose Prednisone 30 mg daily for 2 days, then 20 mg daily x2 days then 10 mg daily for 5 days Increase dose of Lasix to 40 mg 1 tablet daily Take potassium supplement 10 mEq daily Check BMP in 1 week cont bedtime triology ventilator as before Discontinue meloxicam to avoid gastritis while on prednisone Health Concerns: COPD CHF follow low-salt diet Plan of Treatment: Follow-up with pulmonology call for appointment in 1-2 weeks Follow-up with cardiology call for appointment in 2 weeks Assessment: As above
--- NOTE | 2024-10-01 13:40 | MHC.CM.PN ---
Requested documents have been faxed to [facility] Nurse,Nivia @ [phone]. CM has attempted to reach Nivia multiple times @ [phone] and has left a detailed message, requesting a return call to coordinate final dc plan.CM will follow.
--- NOTE | 2024-10-01 14:03 | MHC.CM.PN ---
CM received a return call from RN/Nivia and requested changes to the paperwork have been made and faxed back to Nivia.
--- NOTE | 2024-10-01 14:17 | MHC.CM.PN ---
Patient is medically cleared for dc to return to her [facility] today at 4PM, via [facility]. IMM was addressed earlier today at bedside, with Patient. CM informed Daughter/Heather of the dc plan.
--- NOTE | 2024-10-01 15:12 | P.F2F_ITS ---
Service Date Service Date: 10/01/24 Encounter Date of encounter: 10/01/24 Reasons for Services Signs and symptoms assessed: Shortness of breath, history of CHF and COPD on chronic home oxygen Reason for long term: CV/CP assess and/or care, medication management and teach disease management Homebound: Leaving the home is medically contraindicated at this time without the asist of a device and/or another person due th the listed conditions above and below. Reason homebound: weakness related to hospital stay Certification: Based on the above findings, I certify that this patient is confined to the home and needs intermittent long term care, physical therapy and/or speech therapy, or continues to need occupational therapy. The patient is under my care, and I have initiated the establishment of the plan of care. The patient will be followed by a physician who will periodically review the plan of care. Time Spent With Patient Time: Total time managing care of this patient today ____ minutes.
== END 2024-10-01 17:13 | disposition home health service (06) | DRG 291 ==
LOC: HO.ED 10:58 → HO.EDOVER 14:31 → HO.IMC 15:06
PROVIDERS: Hospitalist; Physician Assistant Medical; Admitting Provider Hospitalist; Emergency Provider Emergency Medicine Emergency Medical Services; PCP Student in an Organized Health Care Education/Training Program; Visit Provider Hospitalist
DX: I11.0 Hypertensive heart disease with heart failure (principal); I50.33 Acute on chronic diastolic (congestive) heart failure; J18.9 Pneumonia, unspecified organism; J96.11 Chronic respiratory failure with hypoxia; J96.12 Chronic respiratory failure with hypercapnia; J44.0 Chronic obstructive pulmonary disease with (acute) lower respiratory infection; J44.1 Chronic obstructive pulmonary disease with (acute) exacerbation; E66.811 Obesity, class 1; Z68.33 Body mass index [BMI] 33.0-33.9, adult; Z71.3 Dietary counseling and surveillance; I48.0 Paroxysmal atrial fibrillation; Z99.81 Dependence on supplemental oxygen; Z20.822 Contact with and (suspected) exposure to COVID-19; Z79.01 Long term (current) use of anticoagulants; Z79.51 Long term (current) use of inhaled steroids; Z79.82 Long term (current) use of aspirin; Z79.899 Other long term (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 therapy
CPT/HCPCS: 0241U; 36415; 71045; 80048; 80053; 82803; 83605; 83735; 83880; 84484; 85025; 85610; 85730; 87040; 93005; 94640; 94660; 99285; J0696; J1120; J1940; J2919

== ENCOUNTER → 2024-09-26 10:35 | Outpatient (BNV) | payer MEDICARE, MEDICAID, SELFPAY | PROVIDERS: Admitting Provider Hospitalist; Emergency Provider Emergency Medicine Emergency Medical Services; PCP Student in an Organized Health Care Education/Training Program; Visit Provider Internal Medicine | DX: R94.31 Abnormal electrocardiogram [ECG] [EKG] (principal) | CPT/HCPCS: 93010 ==

== ENCOUNTER 2024-09-26 14:21 | Outpatient (BNV) | payer MEDICARE, MEDICAID, SELFPAY | END 2024-09-27 09:15 | PROVIDERS: Admitting Provider Hospitalist; Emergency Provider Emergency Medicine Emergency Medical Services; PCP Student in an Organized Health Care Education/Training Program; Visit Provider Radiology Diagnostic Radiology | DX: R09.02 Hypoxemia (principal) | CPT/HCPCS: 71045 ==

== ENCOUNTER → 2024-09-26 14:21 | Outpatient (BNV) | payer MEDICARE, MEDICAID, SELFPAY | PROVIDERS: Admitting Provider Hospitalist; Emergency Provider Emergency Medicine Emergency Medical Services; PCP Student in an Organized Health Care Education/Training Program; Visit Provider Hospitalist | DX: J44.1 Chronic obstructive pulmonary disease with (acute) exacerbation (principal); J81.0 Acute pulmonary edema; I27.81 Cor pulmonale (chronic) | CPT/HCPCS: 99223 ==

== ENCOUNTER → 2024-09-26 14:21 | Outpatient (BNV) | payer MEDICARE, MEDICAID, SELFPAY | PROVIDERS: Admitting Provider Hospitalist; Emergency Provider Emergency Medicine Emergency Medical Services; PCP Student in an Organized Health Care Education/Training Program; Visit Provider Hospitalist | DX: I48.0 Paroxysmal atrial fibrillation (principal); J44.1 Chronic obstructive pulmonary disease with (acute) exacerbation | CPT/HCPCS: 99223; 99232; 99233; 99239; G0180 ==

== ENCOUNTER 2024-10-03 14:18 | Inpatient (IN) | payer MEDICARE, MEDICAID, SELFPAY ==
[2024-10-03] VITALS (10 sets, daily range): BP systolic 104–139; BP diastolic 44–70; PULSE 62–100; RESP 15–30; TEMP 36.6–37.1; O2SAT 84–98; BMI 37.2
--- NOTE | ~2024-10-03 | XR_ITS ---
EXAMINATION: XR CHEST CLINICAL INFORMATION: Dyspnea COMPARISON: Chest x-ray on 09/27/2024 TECHNIQUE: Frontal view of the chest was obtained. FINDINGS: No significant abnormality is noted involving the heart, lungs, mediastinum, bony thorax or soft tissues. Multiple old left-sided rib fractures. XR/XR chest 1V IMPRESSION: No acute disease. Electronically signed by: Mary Song MD 10/03/2024 05:04 PM [facility]
--- NOTE | 2024-10-03 14:28 | ECG_ITS ---
Test Reason : diff breathing Blood Pressure : / mmHG Vent. Rate : 089 BPM Atrial Rate : 089 BPM P-R Int : 124 ms QRS Dur : 090 ms QT Int : 356 ms P-R-T Axes : 059 066 058 degrees QTc Int : 433 ms Normal sinus rhythm Minimal voltage criteria for LVH, may be normal variant ( Sokolow-Sanford ) Borderline ECG When compared with ECG of 26-SEP-2024 10:40, Criteria for Inferior infarct are no longer Present T wave inversion no longer evident in Inferior leads Referred By: Glenroy De Santiago Electronically Signed By:ROGERIO JOHNSON MD
--- NOTE | 2024-10-03 14:32 | PC.RT ---
pt came in via EMS for SOB on CPAP. Pt taken off CPAP by RT to get RA assessment. Pt desat to 86 on RA. Pt has crackles in the bases w/ edema to ankles and lower legs. Pt placed on V60 bipap settings, pt elsie current settings well. Will continue to monitor.
[2024-10-03] MEDS: Albuterol Sulfate 5 MG, Albuterol/Iprat 2.5/0.5MG 3 ML 3 ML INHALE (14:38)
--- NOTE | 2024-10-03 14:40 | ED_ITS ---
HPI - General Adult General Chief complaint: Dyspnea Stated complaint: CHF EXACERBATION PER EMS Time Seen by Provider: 10/03/24 14:23 Source: patient Mode of arrival: EMS Limitations: no limitations History of Present Illness HPI narrative: This is a 69-year-old woman with a past medical history of chronic hypoxic hypercapnic failure due to COPD on 3 L per minutes supplemental oxygen via nasal cannula at rest and 6 liters/minute during activity, BiPAP at night, hypertension, CHF, paroxysmal atrial fibrillation (on Eliquis), mood disorder, osteoporosis who is brought in by EMS for evaluation of dyspnea. EMS reports patient was found to be dyspneic with end-tidal CO2 in the 70s there were initial evaluation. EMS reports initiating CPAP, providing 0.4 mg sublingual knees nitroglycerin spray, 1 in of nitroglycerin paste and 40 mg IV Lasix and route to the hospital. EMS reports that patient was hypertensive with systolic pressure in the 200s initially would, which improved to 170s by arrival to the emergency room. EMS reports that patient only complained of dyspnea no associated pain. Patient states that she has had gradually increasing dyspnea over the last 2 days. She states no fever or sputum production. She states no hemoptysis. She states no chest pain. She states no GI or symptoms. Related Data Home Medications ?Medication ?Instructions ?Recorded ?Confirmed acetaminophen 500 mg tablet 1,000 mg PO Q8H PRN Pain 02/09/21 09/26/24 albuterol sulfate 90 mcg/actuation 2 puff inhalation Q6H PRN 02/09/21 09/26/24 aerosol inhaler (Proventil HFA) Respiratory Distress alendronate 70 mg tablet (Fosamax) 70 mg PO DOMINGUEZ 02/09/21 09/26/24 aspirin 81 mg tablet,delayed 81 mg PO DAILY 02/09/21 09/26/24 release cholecalciferol (vitamin D3) 50 50 mcg PO DAILY 02/09/21 09/26/24 mcg (2,000 unit) capsule (Vitamin D3) lamotrigine 150 mg tablet 300 mg PO BEDTIME 02/09/21 09/26/24 montelukast 10 mg tablet 10 mg PO BEDTIME 02/09/21 09/26/24 mirtazapine 15 mg tablet 15 mg PO BEDTIME 09/10/21 09/26/24 sennosides 8.6 mg tablet (Senokot) 8.6 mg PO BEDTIME 09/10/21 09/26/24 metoprolol succinate 50 mg 100 mg PO DAILY 11/18/21 09/26/24 tablet,extended release 24 hr Oxygen Home Use 04/15/23 05/17/24 fluticasone propionate 50 1 spray intranasal DAILY Allergies 04/15/23 09/26/24 mcg/actuation nasal spray,suspension nebulizers 04/15/23 05/17/24 vilazodone 40 mg tablet 40 mg PO DAILY 04/15/23 09/26/24 gabapentin 100 mg capsule 100 mg PO TID 09/20/23 09/26/24 fluticasone furoate 200 1 inh inhalation DAILY SOB 06/21/24 09/26/24 mcg-vilanterol 25 mcg/dose inhalation powder (Breo Ellipta) pantoprazole 40 mg tablet,delayed 40 mg PO DAILY@0630 06/21/24 09/26/24 release betamethasone dipropionate 0.05 % 1 appl topical Q12H PRN Dermititis 07/27/24 09/26/24 topical cream cyclobenzaprine 5 mg tablet 5 mg PO Q8H PRN Muscle Pain 07/27/24 09/26/24 diclofenac sodium 1 % topical gel 1 g topical Q12H PRN Pain 07/27/24 09/26/24 docusate sodium 100 mg capsule 100 mg PO DAILY PRN Constipation 07/27/24 09/26/24 fluocinolone acetonide oil 0.01 % 4 drp otic (ears) Q48H 07/27/24 09/26/24 ear drops (DermOtic Oil) lactulose 10 gram/15 mL oral 30 ml PO DAILY PRN Constipation 07/27/24 09/26/24 solution theophylline 200 mg 200 mg PO BID 07/27/24 09/26/24 tablet,extended release,12 hr albuterol sulfate 2.5 mg/3 mL 2.5 mg inhalation Q6H PRN wheezing 08/20/24 09/26/24 (0.083 %) solution for nebulization aripiprazole 10 mg tablet 10 mg PO DAILY 08/20/24 09/26/24 calcium carbonate 500 mg-vitamin 1 tab PO BID 08/20/24 09/26/24 D3 10 mcg (400 unit) tablet (Oyster Shell Calcium-Vitamin D3) lamotrigine 200 mg tablet 200 mg PO DAILY 08/20/24 09/26/24 mineral oil 1 appl topical Q48H PRN eczema 08/20/24 09/26/24 omega 4-lil-diy-fish oil 1,000 mg 1 cap PO BID 08/20/24 09/26/24 (120 mg-180 mg) capsule (Fish Oil) salmeterol 50 mcg/dose blister 1 inh inhalation BID 08/20/24 09/26/24 powder for inhalation (Serevent Diskus) apixaban 5 mg tablet (Eliquis) 5 mg PO BID 09/26/24 09/26/24 Previous Rx's ?Medication ?Instructions ?Recorded furosemide 40 mg tablet 40 mg PO DAILY #30 tabs 10/01/24 potassium chloride 10 mEq 10 meq PO DAILY #90 caps 10/01/24 capsule,extended release prednisone 10 mg tablet 10 mg PO DIRECTED #15 tabs 10/01/24 Allergies Allergy/AdvReac Type Severity Reaction Status Date / Time codeine [Codeine] Allergy Intermediate RESTLESS/RA Verified 10/03/24 14:29 SH haloperidol [Haldol] Allergy Intermediate Palpitation Verified 10/03/24 14:29 s Sulfa (Sulfonamide Allergy Intermediate HIVES Verified 10/03/24 14:29 Antibiotics) Review of Systems 2 Review of Systems: ROS as per HPI [facility] Past Medical History Medical History (Updated 10/03/24 @ 19:44 by Glenroy De Santiago MD) Cor pulmonale Rib fractures Pulmonary nodule Tubular adenoma of colon (~2006) Osteopenia (~2012) Bronchopneumonia Chest pain Chronic respiratory alkalosis ILD (interstitial lung disease) CO2 retention Acute on chronic respiratory failure with hypoxia and hypercapnia Bipolar depression Eczema Limb swelling Insomnia Bronchitis Vasomotor rhinitis COPD (chronic obstructive pulmonary disease) Chronic respiratory failure Fall Acute metabolic encephalopathy Acute and chronic respiratory failure with hypercapnia Surgical History History of carpal tunnel surgery (~2000) History of ventral hernia repair (~2003) History of left inguinal hernia repair (~1995) History of tracheostomy (~2016) History of cataract surgery (~2018) History of colonoscopy Family History Family History Other Hypertension Social History Social History Household Members: Other Household Members Other:: senior living Housing: Other Housing Other:: senior living Are you a primary career and guidance counselor to a significant other at home: No Do you presently have visiting nurse or other home services: Yes (senior living services) Alcohol intake: former Patient Tobacco Use Status: Former Tobacco user Tobacco use type: Cigarette Years Smoked: 20+ years Smoked in Last 30 Days: No e-Cigarette/Vaping Use: Never Used Second Hand Smoke Exposure: No Use of substances other than those prescribed or required for medical reasons: No Advance Directives: Yes Advance Directives on File: Yes Advance Directives Date on File: 11/30/21 Do you have a plan to hurt others: No Plan service: No Current occupational status: disabled Physical Exam ED Vital Signs: Vital Signs - 24 hr 10/03/24 14:26 10/03/24 14:31 10/03/24 14:38 Temperature 98.6 F Pulse Rate 90 100 Respiratory Rate 30 H 25 H 25 H Blood Pressure 120/66 Pulse Oximetry 84 L Oxygen Delivery Method Room Air Oxygen Flow Rate 10/03/24 17:47 10/03/24 18:25 Temperature 98.5 F Pulse Rate 74 Respiratory Rate 18 20 Blood Pressure 110/45 L Pulse Oximetry 95 95 Oxygen Delivery Method Nasal Cannula Nasal Cannula Oxygen Flow Rate 3 3 BMI result Body Mass Index 37.2 Gen: NAD, AOx3 HEENT: NCAT, EOMI, normal conjunctiva CV: RRR Pulm: Diffuse expiratory wheezes GI: Soft, NTND, no rebound, guarding or rigidity Neuro: Grossly non focal Medications Administered Discontinued Medications Generic Name Dose Route Start Last Admin Trade Name Freq PRN Reason Stop Dose Admin Albuterol Sulfate 5 mg/ 0 mg 10/03/24 14:25 10/03/24 14:38 Albuterol/Ipratropium 3 ml INHALE 10/03/24 14:26 1 each ONCE ONE Administration Medical Decision Making Medical Decision Making MDM Narrative: Differential diagnosis includes, but is not limited to pneumothorax, COPD exacerbation, CHF exacerbation, hypertensive emergency. This is not sepsis. Patient is afebrile and hemodynamically stable. However, given EMS is history of hypertension, hypoxia with subsequent treatment with nitroglycerin I am concerned the patient experienced hypertensive emergency. The patient no longer hypertensive here in the emergency room. She was initially continued on noninvasive mechanical ventilation, but this was subsequently weaned to nasal cannula. She was treated supportively with nebulized bronchodilator therapy given exam with wheezes consistent with bronchospasm. I considered pneumonia, but there is no fever or reactive cough to suggest this and radiographically the patient has no evidence of pneumonia. I reviewed labs as below. Discussed patient's case and management with admitting hospice, Dr. Montiel, and patient is admitted in stable and improved condition for further workup and management. Critical Care Time: A total of 45 minutes spent in direct patient care with coordinating critical resuscitation, procedures, reviewing records, discussing with consultants, reviewing labs, and/or managing patient. Admission/Observation Consideration of admission/observation: Escalation of care including admission/observation considered Consult Healthcare Provider Management of the patient was discussed with: Hospitalist Lab Data MDM Lab Attestation statement: I reviewed the patient's lab results. I independently reviewed and interpreted the patient's labs, which demonstrated chronic stable anemia with hemoglobin 9.9 (previous 9.2), thrombocytosis with platelet 513 (previous 446), venous blood gas is reassuring with no respiratory acidosis, patient has tested negative for COVID-19/influenza/RSV. 10/03/24 15:51 10/03/24 15:51 Labs: Lab Results 10/03/24 10/03/24 Range/Units 15:51 16:03 WBC 10.2 (4.8-10.8) X10*3/uL RBC 3.40 L (4.20-5.50) X10*6/uL Hgb 9.9 L (12.0-16.0) g/dl Hct 31.3 L (37.0-47.0) % MCV 92.1 (80.0-98.0) fL MCH 29.1 (27.0-33.0) pg MCHC 31.6 (31.0-35.0) g/dl RDW 14.8 (11.0-16.0) % Plt Count 513 H (160-400) X10*3/uL MPV 8.9 L (9.4-12.3) fL Immature Gran % (Auto) 1.1 H (0.0-0.4) % Neut % (Auto) 81.6 H (45-73) % Lymph % (Auto) 9.1 L (20-40) % [place] % (Auto) 7.3 (2-11) % Eos % (Auto) 0.7 (0-4) % Baso % (Auto) 0.2 (0-2) % Lymph # (Auto) 0.9 L (1.2-4.9) X10*3/uL [place] # (Auto) 0.7 (0.1-1.2) X10*3/uL Eos # (Auto) 0.1 (0.0-0.4) X10*3/uL Baso # (Auto) 0.0 (0.0-0.2) X10*3/uL Abs Immat Gran (auto) 0.11 H (0.00-0.03) X10*3/uL Absolute Neuts (auto) 8.3 (2.0-8.3) x10*3/uL Absolute Nucleated RBC 0.000 (0.0-0.012) X10*3/uL Nucleated RBC % (auto) 0.0 (0.0-0.2) /100WBC VBG pH 7.45 H (7.32-7.43) VBG pCO2 86 mmHg VBG pO2 60 mmHg VBG HCO3 60 H (22-26) mmol/L VBG O2 Saturation 88.0 % VBG Base Excess 31.0 mmol/L Sodium 145 (135-145) mmol/L Potassium 3.9 (3.3-5.1) mmol/L Chloride 87 L (96-108) mmol/L Carbon Dioxide 44 H* (22-29) mmol/L Anion Gap 18 (12-20) BUN 19 H (9-16) mg/dL Creatinine 0.80 (0.5-1.4) mg/dL Estim Creat Clear Calc 66.5 Estimated GFR > 60 Random Glucose 114 (60-115) mg/dL Calcium 10.3 H D (8.4-10.2) mg/dL Magnesium 1.8 (1.6-2.6) mg/dL B-Natriuretic Peptide 166 H (<100) pg/mL Influenza Type A (PCR) NEGATIVE (Negative) Influenza Type B (PCR) NEGATIVE (Negative) RSV RNA Qual (PCR) NEGATIVE (Negative) SARS-CoV-2 RNA (RT-PCR) NEGATIVE (Negative) Independent Interpretation I performed an independent interpretation of an: EKG and Plain X-Ray Interpretation: I independently reviewed and interpreted the patient's EKG, which demonstrates a sinus rhythm at 89 beats per minute, AL 124, QRS 90, QTC 433, no STEMI. I independently reviewed and interpreted the patient's chest x-ray, which demonstrates no focal consolidation or pneumothorax. Radiology Impression Discussion of test interpretation with radiology: I have reviewed the radiologist's reading. Radiologist Impression: XR/XR chest 1V IMPRESSION: No acute disease. Electronically signed by: Mary Song MD 10/03/2024 05:04 PM [facility] By: Mary Song MD Signed By: <Electronically signed by Mary Song MD in [place]> 10/03/24 170 Discharge Plan Discharge Clinical Impression: Hypertensive emergency, Diffuse wheezing Patient Disposition: Admitted As Inpatient Prescriptions: No Action acetaminophen 500 mg Tablet 1,000 mg PO Q8H PRN (Reason: Pain) aspirin 81 mg Tablet,Delayed Release (Dr/Ec) 81 mg PO DAILY alendronate [Fosamax] 70 mg Tablet 70 mg PO DOMINGUEZ lamotrigine 150 mg Tablet 300 mg PO BEDTIME montelukast 10 mg Tablet 10 mg PO BEDTIME albuterol sulfate [Proventil HFA] 90 mcg/actuation Hfa Aerosol Inhaler 2 puff INHALATION Q6H PRN (Reason: Respiratory Distress) cholecalciferol (vitamin D3) [Vitamin D3] 50 mcg (2,000 unit) Capsule 50 mcg PO DAILY mirtazapine 15 mg tablet 15 mg PO BEDTIME metoprolol succinate 50 mg Tablet Extended Release 24 Hr 100 mg PO DAILY betamethasone dipropionate 0.05 % cream 1 appl topical Q12H PRN (Reason: Dermititis ) Rx Instructions: to face cyclobenzaprine 5 mg tablet 5 mg PO Q8H PRN (Reason: Muscle Pain) lactulose 10 gram/15 mL solution 30 ml PO DAILY PRN (Reason: Constipation) Rx Instructions: If no BM in 2 days fluocinolone acetonide oil [DermOtic Oil] 0.01 % Drops 4 drp OTIC (EARS) Q48H diclofenac sodium 1 % gel 1 g topical Q12H PRN (Reason: Pain) theophylline 200 mg tablet extended release 12 hr 200 mg PO BID docusate sodium 100 mg capsule 100 mg PO DAILY PRN (Reason: Constipation) pantoprazole 40 mg tablet,delayed release (DR/EC) 40 mg PO DAILY@0630 fluticasone furoate-vilanterol [Breo Ellipta] 200-25 mcg/dose blister with device 1 inh INHALATION DAILY albuterol sulfate 2.5 mg /3 mL (0.083 %) solution for nebulization 2.5 mg inhalation Q6H PRN (Reason: wheezing) calcium carbonate-vitamin D3 [Oyster Shell Calcium-Vit D3] 500 mg-10 mcg (400 unit) Tablet 1 tab PO BID lamotrigine 200 mg Tablet 200 mg PO DAILY Serevent Diskus 50 mcg/dose Blister With Device 1 inh INHALATION BID mineral oil Oil 1 appl TOPICAL Q48H PRN (Reason: eczema) Rx Instructions: apply to both outer ears topically aripiprazole 10 mg tablet 10 mg PO DAILY omega 4-[id number]-[id number]-fish oil [Fish Oil] 1,000 mg (120 mg-180 mg) Capsule 1 cap PO BID Eliquis 5 mg tablet 5 mg PO BID furosemide 40 mg Tablet 40 mg PO DAILY Qty: 30 0RF Protocol: Hold for SBP< HOLD for SBP < : 90 potassium chloride 10 mEq capsule, extended release 10 meq PO DAILY Qty: 90 0RF prednisone 10 mg tablet 10 mg PO DIRECTED Qty: 15 0RF Rx Instructions: see taper instructions; 30 mg daily x2 days, 20 mg daily x2 days, 10 mg daily x5 days sennosides [Senokot] 8.6 mg tablet 8.6 mg PO BEDTIME Rx Instructions: Hold for loose stools gabapentin 100 mg capsule 100 mg PO TID (DME) nebulizers [facility] See Rx Instructions .Route Rx Instructions: As directed fluticasone propionate 50 mcg/actuation spray,suspension 1 spray intranasal DAILY vilazodone 40 mg tablet 40 mg PO DAILY (DME) Oxygen Home Use Kit See Rx Instructions .Route Rx Instructions: As directed Print Language: Iraqi
[2024-10-03 16:02] LABS: MANUAL DIFF FLAG NO
[2024-10-03 16:05] LABS: Basophils Percent Auto 0.2 % (0-2); Eosinophils Absolute Auto 0.1 X10*3/uL (0.0-0.4); Eosinophils Percent Auto 0.7 % (0-4); Hematocrit 31.3 % (37.0-47.0); Hemoglobin 9.9 g/dl (12.0-16.0); Imm Gran Abs Auto 0.11 X10*3/uL (0.00-0.03); Imm Gran Pct Auto 1.1 % (0.0-0.4); Lymphocytes Absolute Auto 0.9 X10*3/uL (1.2-4.9); Lymphocytes Percent Auto 9.1 % (20-40); Mean Corpuscular HGB Conc 31.6 g/dl (31.0-35.0); Mean Corpuscular Hemoglobin 29.1 pg (27.0-33.0); Mean Corpuscular Volume 92.1 fL (80.0-98.0); Mean Platelet Volume 8.9 fL (9.4-12.3); Monocytes Absolute Auto 0.7 X10*3/uL (0.1-1.2); Monocytes Percent Auto 7.3 % (2-11); Neutrophils Absolute Auto 8.3 x10*3/uL (2.0-8.3); Neutrophils Percent Auto 81.6 % (45-73); Platelet Count 513 X10*3/uL (160-400); Red Cell Distribution Width 14.8 % (11.0-16.0); White Blood Count 10.2 X10*3/uL (4.8-10.8)
[2024-10-03 16:07] LABS: Venous Blood Gas Refer to POC result
[2024-10-03 16:07] LABS: VBG HCO3 60 mmol/L (22-26); VBG pCO2 86 mmHg; VBG pH 7.45 (7.32-7.43); VBG pO2 60 mmHg
[2024-10-03 16:24] LABS: B Type Natriuretic Peptide 166 pg/mL (<100)
--- NOTE | 2024-10-03 16:28 | PC.NURSE ---
Continues on BiPap , reports feeling better. Denies pain or discomfort states just wants to go back to long term
[2024-10-03 16:48] LABS: Influenza A PCR NEGATIVE (Negative); Influenza B PCR NEGATIVE (Negative); Resp Syncy Virus RNA Qual PCR NEGATIVE (Negative); SARS COV2 PCR INHOUSE NEGATIVE (Negative)
[2024-10-03 16:53] LABS: Anion Gap 18 (12-20); Blood Urea Nitrogen 19 mg/dL (9-16); Calcium 10.3 mg/dL (8.4-10.2); Carbon Dioxide 44 mmol/L (22-29); Chloride 87 mmol/L (96-108); Creatinine Clr Calc Pharmacy 66.5; Estimated Glomerular Filt Rate > 60; Glucose Random 114 mg/dL (60-115); Magnesium 1.8 mg/dL (1.6-2.6); Potassium 3.9 mmol/L (3.3-5.1); Sodium 145 mmol/L (135-145)
--- NOTE | 2024-10-03 17:20 | PC.NURSE ---
Gerri from [facility] called stating that she feels as though [facility] not able to provide the care she currently needs to keep her from going back and forth between the hospital. Would like patient to go to [facility] . States will call case management in the AM
--- NOTE | 2024-10-03 17:49 | PC.NURSE ---
Per patient request bipap removed and placed on 3 l NC, patient maintaining 02 sats. No sob noted
--- NOTE | 2024-10-03 19:38 | P.HPHOSP_ITS ---
History of Present Illness Date of Service: 10/03/24 Chief Complaint: Dyspnea A 69-year-old female with PMH of chronic hypoxic hypercapnic failure due to COPD on 3L baseline oxygen at rest, 6 L during activity, BiPAP at night,HTN, CHF, mood disorder, PAF on Eliquis, osteoporosis who was recently discharged from hospital coming back for Dyspnea. The patient was brought from [facility] by EMS for dyspneua with reported O@ sat of 70% on 3L. Started on CPAP and IV Lasix while on the way. In ED placed on Bipap and received Nebulizers with fair response. weaned down to Nasal cannula. The patient reports only feeling dyspniec with no reported altered mentation, cough, fever or chills. In ED a repeat CXR showed that CHF from last admission resolved with no clear infiltrates. BNP lower than last time checked while inpatient few days ago. Will be admitted for further work up and treatment. Review of Systems 2 Review of Systems: No fever, chills or weakness No chest pain, palpitation reporting shortness of breath and wheezing No abdominal pain, nausea or vomiting No urinary symptoms No any rash PMFSH Medical History Cor pulmonale Rib fractures Pulmonary nodule Tubular adenoma of colon (~2006) Osteopenia (~2012) Bronchopneumonia Chest pain Chronic respiratory alkalosis ILD (interstitial lung disease) CO2 retention Acute on chronic respiratory failure with hypoxia and hypercapnia Bipolar depression Eczema Limb swelling Insomnia Bronchitis Vasomotor rhinitis COPD (chronic obstructive pulmonary disease) Chronic respiratory failure Fall Acute metabolic encephalopathy Acute and chronic respiratory failure with hypercapnia Family History Other Hypertension Surgical History History of carpal tunnel surgery (~2000) History of ventral hernia repair (~2003) History of left inguinal hernia repair (~1995) History of tracheostomy (~2016) History of cataract surgery (~2018) History of colonoscopy Social History Household Members: Other Household Members Other:: senior care Housing: Other Housing Other:: senior care Are you a primary occasional caregiver to a significant other at home: No Do you presently have visiting nurse or other home services: Yes (senior care services) Alcohol intake: former Patient Tobacco Use Status: Former Tobacco user Tobacco use type: Cigarette Years Smoked: 20+ years Smoked in Last 30 Days: No e-Cigarette/Vaping Use: Never Used Second Hand Smoke Exposure: No Use of substances other than those prescribed or required for medical reasons: No Advance Directives: Yes Advance Directives on File: Yes Advance Directives Date on File: 11/30/21 Do you have a plan to hurt others: No Plan service: No Current occupational status: disabled Meds Allergies Allergy/AdvReac Type Severity Reaction Status Date / Time codeine [Codeine] Allergy Intermediate RESTLESS/RA Verified 10/03/24 14:29 SH haloperidol [Haldol] Allergy Intermediate Palpitation Verified 10/03/24 14:29 s Sulfa (Sulfonamide Allergy Intermediate HIVES Verified 10/03/24 14:29 Antibiotics) Home Medications ?Medication ?Instructions ?Recorded ?Confirmed ?Last Taken ?Type acetaminophen 500 mg tablet 1,000 mg PO Q8H PRN Pain 02/09/21 10/03/24 08/19/24 History albuterol sulfate 90 mcg/actuation 2 puff inhalation Q6H PRN 02/09/21 10/03/24 08/19/24 History aerosol inhaler (Proventil HFA) Respiratory Distress alendronate 70 mg tablet (Fosamax) 70 mg PO DOMINGUEZ 02/09/21 10/03/24 08/19/24 History aspirin 81 mg tablet,delayed 81 mg PO DAILY 02/09/21 10/03/24 08/19/24 History release cholecalciferol (vitamin D3) 50 50 mcg PO DAILY 02/09/21 10/03/24 08/19/24 History mcg (2,000 unit) capsule (Vitamin D3) lamotrigine 150 mg tablet 300 mg PO BEDTIME 02/09/21 10/03/24 08/19/24 History montelukast 10 mg tablet 10 mg PO BEDTIME 02/09/21 10/03/24 08/19/24 History mirtazapine 15 mg tablet 15 mg PO BEDTIME 09/10/21 10/03/24 08/19/24 History sennosides 8.6 mg tablet (Senokot) 8.6 mg PO BEDTIME 09/10/21 10/03/24 08/19/24 History metoprolol succinate 50 mg 100 mg PO DAILY 11/18/21 10/03/24 08/19/24 History tablet,extended release 24 hr Oxygen Home Use 04/15/23 05/17/24 Unknown History fluticasone propionate 50 1 spray intranasal DAILY Allergies 04/15/23 10/03/24 08/19/24 History mcg/actuation nasal spray,suspension nebulizers 04/15/23 05/17/24 Unknown History vilazodone 40 mg tablet 40 mg PO DAILY 04/15/23 10/03/24 08/19/24 History gabapentin 100 mg capsule 100 mg PO TID 09/20/23 10/03/24 08/19/24 History fluticasone furoate 200 1 inh inhalation DAILY SOB 06/21/24 10/03/24 08/19/24 History mcg-vilanterol 25 mcg/dose inhalation powder (Breo Ellipta) pantoprazole 40 mg tablet,delayed 40 mg PO DAILY@0630 06/21/24 10/03/24 08/19/24 History release betamethasone dipropionate 0.05 % 1 appl topical Q12H PRN Dermititis 07/27/24 10/03/24 08/19/24 History topical cream cyclobenzaprine 5 mg tablet 5 mg PO Q8H PRN Muscle Pain 07/27/24 10/03/24 08/19/24 History diclofenac sodium 1 % topical gel 1 g topical Q12H PRN Pain 07/27/24 10/03/24 08/19/24 History docusate sodium 100 mg capsule 100 mg PO DAILY PRN Constipation 07/27/24 10/03/24 08/19/24 History fluocinolone acetonide oil 0.01 % 4 drp otic (ears) Q48H 07/27/24 10/03/24 08/19/24 History ear drops (DermOtic Oil) lactulose 10 gram/15 mL oral 30 ml PO DAILY PRN Constipation 07/27/24 10/03/24 08/19/24 History solution theophylline 200 mg 200 mg PO BID 07/27/24 10/03/24 08/19/24 History tablet,extended release,12 hr albuterol sulfate 2.5 mg/3 mL 2.5 mg inhalation Q6H PRN wheezing 08/20/24 10/03/24 08/19/24 History (0.083 %) solution for nebulization aripiprazole 10 mg tablet 10 mg PO DAILY 08/20/24 10/03/24 Unknown History calcium carbonate 500 mg-vitamin 1 tab PO BID 08/20/24 10/03/24 Unknown History D3 10 mcg (400 unit) tablet (Oyster Shell Calcium-Vitamin D3) lamotrigine 200 mg tablet 200 mg PO DAILY 08/20/24 10/03/24 Unknown History mineral oil 1 appl topical Q48H PRN eczema 08/20/24 10/03/24 Unknown History omega 2-bih-gtq-fish oil 1,000 mg 1 cap PO BID 08/20/24 10/03/24 Unknown History (120 mg-180 mg) capsule (Fish Oil) salmeterol 50 mcg/dose blister 1 inh inhalation BID 08/20/24 10/03/24 Unknown History powder for inhalation (Serevent Diskus) apixaban 5 mg tablet (Eliquis) 5 mg PO BID 09/26/24 10/03/24 Unknown History potassium chloride 10 mEq 10 meq PO DAILY 10/03/24 10/03/24 Unknown History tablet,extended release(part/cryst) (Klor-Con M) prednisone 10 mg tablet See Taper PO DIRECTED 10/03/24 10/03/24 Unknown History Physical Exam 2 Vital Signs and Narrative: Vital Signs: Last Vital Signs Temp 98.5 F 10/03/24 17:47 Pulse 74 10/03/24 17:47 Resp 20 10/03/24 18:25 BP 110/45 L 10/03/24 17:47 Pulse Ox 95 10/03/24 18:25 O2 Del Method Nasal Cannula 10/03/24 18:25 O2 Flow Rate 3 10/03/24 18:25 BMI result Body Mass Index 37.2 Const: Other: Constitutional : Awake, interactive, not in distress Neck : Normal inspection, Supple Cardiovascular : RRR, no JVP, trace lower extremity edema Respiratory : good bilateral air entry, no crackles, mild scatted wheezes bilaterally Gastrointestinal: soft, lax, Normal bowel sounds, Non tender Skin : Warm, Dry Neurological : Alert & oriented x3, No focal deficit Results Labs 10/03/24 15:51 10/03/24 15:51 Labs: Laboratory Results - last 24 hr 10/03/24 10/03/24 15:51 16:03 MCV 92.1 MCH 29.1 MCHC 31.6 RDW 14.8 Plt Count 513 H MPV 8.9 L Immature Gran % (Auto) 1.1 H Neut % (Auto) 81.6 H Lymph % (Auto) 9.1 L [place] % (Auto) 7.3 Eos % (Auto) 0.7 Baso % (Auto) 0.2 Lymph # (Auto) 0.9 L [place] # (Auto) 0.7 Eos # (Auto) 0.1 Baso # (Auto) 0.0 Abs Immat Gran (auto) 0.11 H Absolute Neuts (auto) 8.3 Absolute Nucleated RBC 0.000 Nucleated RBC % (auto) 0.0 VBG pH 7.45 H VBG pCO2 86 VBG pO2 60 VBG HCO3 60 H VBG O2 Saturation 88.0 VBG Base Excess 31.0 Anion Gap 18 Estim Creat Clear Calc 66.5 Estimated GFR > 60 Random Glucose 114 Calcium 10.3 H D Magnesium 1.8 B-Natriuretic Peptide 166 H Influenza Type A (PCR) NEGATIVE Influenza Type B (PCR) NEGATIVE RSV RNA Qual (PCR) NEGATIVE SARS-CoV-2 RNA (RT-PCR) NEGATIVE Imaging Radiologist's Impressions: Impressions Chest X-Ray 10/03/24 14:25 IMPRESSION: No acute disease. Electronically signed by: Mary Song MD 10/03/2024 05:04 PM [facility] Assessment and Plan (1) Diffuse wheezing: Status: Acute (2) Hypoxia: Status: Acute (3) Acute exacerbation of chronic obstructive pulmonary disease (COPD): Status: Acute Plan A 69-year-old female with PMH of chronic hypoxic hypercapnic failure due to COPD on 3L baseline oxygen at rest, 6 L during activity, BiPAP at night,HTN, CHF, mood disorder, PAF on Eliquis, osteoporosis who was recently discharged from hospital coming back for Dyspnea. Acute on chronic hypoxic respiratory failure 2/2 COPD exacerbation Required acute Bipap in ED, off bipap, on baseline O2 now CXR not showing any infiltrates, BNP lower than prev. Start Duonebs ATC and PRN Albuterol IV Steroids for now Continue Theophylline, Montelukast and home inhalers Azithromycin for pleiotropic effect Wean O2 down as tolerated BiPAP at night diastolic CHF not in exacerbation Hold Lasix and use Diamox for now Monitor fluid status PAF , Controlled , continue MEtprolol and Eliquis HTN, Metoprolol GERD , PPI Mood disorder Lamotrigine and Mirtazapine , watch for over sedation DVT PPx Eliquis The patient will need 2 overnight hospital stay for Hypoxic respiratory failure on IV Steroids and nebulizers Quality Stroke Does the patient have a stroke diagnosis?: No VTE Prior VTE?: No VTE Risk Level:: Medical - moderate - high VTE Device Contraindication: Treatment Not Indicated VTE Drug Contraindication: N/A - Med Ordered
--- NOTE | 2024-10-03 19:42 | MHC.EDTECH ---
Patient eating a sandwich, crackers and hot tea.
[2024-10-03] MEDS: Albuterol Sulfate 2.5 MG, Albuterol/Iprat 2.5/0.5MG 3 ML 3 ML INHALE (19:49)
--- NOTE | 2024-10-03 20:14 | PHA.MEDREC ---
Addendum entered by Maikol Cristina RPh 10/03/24 20:35: Med rec was reviewed by [facility]. Original Note: Pharmacy Consult ? Medication Reconciliation Pharmacy has completed the medication reconciliation. Spoke to patient to confirm med list. patent states she is in a longterm ([facility]) and they give patient her medication. MD came is as i was taking to patient and stated that patient was Just discharged from [facility] 10/01/24 and patient state there are no changes. Utilized discharge packet to confirm med list.
[2024-10-03] MEDS: lamoTRIgine 100 MG TABLET 300 MG PO (21:35)
[2024-10-03] MEDS: Azithromycin 500 MG TABLET PO (21:35)
[2024-10-03] MEDS: Montelukast Sodium 10 MG TABLET PO (21:35)
[2024-10-03] MEDS: methylPREDNISolone Sod Succ 40 MG/ML VIAL IVPUSH (21:35)
[2024-10-03] MEDS: Sennosides 8.6 MG TABLET PO (21:35)
[2024-10-03] MEDS: Gabapentin 100 MG CAPSULE PO (21:35)
[2024-10-03] MEDS: Apixaban 5 MG TABLET PO (21:35)
[2024-10-03] MEDS: Mirtazapine 15 MG TABLET PO (21:38)
[2024-10-03] MEDS: acetaZOLAMIDE 250 MG TABLET PO (21:38)
--- NOTE | 2024-10-03 22:20 | PC.NURSE ---
nitro paste found on pt L. shoulder/upper arm area. removed as bp 106/47. MD made aware. pt denies cp/sob.
[2024-10-03] MEDS: Albuterol/Iprat 2.5/0.5MG 3 ML AMPUL.NEB INHALE (22:40)
[2024-10-04] VITALS (17 sets, daily range): BP systolic 103–163; BP diastolic 51–73; PULSE 64–97; RESP 17–118; TEMP 35.9–36.6; O2SAT 90–97
[2024-10-04] MEDS: Albuterol/Iprat 2.5/0.5MG 3 ML AMPUL.NEB INHALE ×7 (00:16→23:56)
[2024-10-04] MEDS: Omeprazole 20 MG CAPSULE.DR PO (06:24)
[2024-10-04 07:37] LABS: Anion Gap 17 (12-20); Blood Urea Nitrogen 19 mg/dL (9-16); Calcium 9.5 mg/dL (8.4-10.2); Carbon Dioxide 39 mmol/L (22-29); Chloride 89 mmol/L (96-108); Creatinine Clr Calc Pharmacy 62.6; Estimated Glomerular Filt Rate > 60; Glucose Random 136 mg/dL (60-115); Potassium 3.9 mmol/L (3.3-5.1); Sodium 141 mmol/L (135-145)
[2024-10-04] MEDS: acetaZOLAMIDE 250 MG TABLET PO ×2 (08:44→21:11)
[2024-10-04] MEDS: Cholecalciferol (Vitamin D3) 25 MCG TABLET 50 MCG PO (08:44)
[2024-10-04] MEDS: Apixaban 5 MG TABLET PO ×2 (08:44→21:11)
[2024-10-04] MEDS: Aspirin Enteric Coated 81 MG TABLET.DR PO (08:44)
[2024-10-04] MEDS: Vilazodone HCL 40 MG TABLET PO (08:44)
[2024-10-04] MEDS: ARIPiprazole 10 MG TABLET PO (08:44)
[2024-10-04] MEDS: methylPREDNISolone Sod Succ 40 MG/ML VIAL IVPUSH ×2 (08:44→21:12)
[2024-10-04] MEDS: Gabapentin 100 MG CAPSULE PO ×3 (08:44→21:11)
[2024-10-04] MEDS: Theophylline Anhydrous ER 400 MG TAB.ER.24H PO (08:45)
[2024-10-04] MEDS: Metoprolol Succinate ER 100 MG TAB.ER.24H PO (08:45)
[2024-10-04] MEDS: Potassium Chloride ER 10 MEQ TABLET.ER PO (08:45)
[2024-10-04] MEDS: 0.9 % Sodium Chloride Flush 3 ML SYRINGE IVFLUSH ×3 (08:45→21:18)
[2024-10-04] MEDS: lamoTRIgine 100 MG TABLET 200 MG PO (09:38)
[2024-10-04] MEDS: Salmeterol Xinafoate 50 MCG BLST.W.DEV 1 PUFF INHALE ×2 (11:35→18:50)
[2024-10-04] MEDS: Fluticasone/Vilanterol 200/25 BLST.W.DEV 1 PUFF INHALE (11:35)
--- NOTE | 2024-10-04 12:13 | MHC.CM.PN ---
IMM 10/04/24, EMR REVIEWED, PT ADMITTED W/HYPOXIA/DYSPNEA, CM MET W/PT WHO IS A&O AND REPORTS SHE [facility], PT REPORTS THAT SHE HAS BEEN IN AND OUT OF THE HOSPITAL SINCE MOVING IN TO AND WAS IN LTC AT [facility] PRIOR TO MOVING IN TO , PT REPORTS THE GOAL FOR DC IS LIKELY STR AT [facility] AND THEN TRANSITION TO DTR/ALT [facility]CP [facility] AND IF SHE IS NOT SUCCESSFUL THERE SHE WILL LIKELY RETURN TO LTC. PT REPORTS SHE USES A ROLLATER WALKER AT [place], USES A WC FOR LONG DISTANCES, [place] FOR HOME O2/TRILOGY VENT, PCP AND HCP ON FILE VERIFIED.
--- NOTE | 2024-10-04 12:41 | HO.PM.IMPN ---
Subjective Subjective Date of Service: 10/04/24 Interval History: seen and examined Follow-up for acute COPD exacerbation Reports improvement in breathing, +cough Review of Systems Review of Systems: Yes all other systems are reviewed and are negative Constitutional Constitutional: Denies chills and Denies fever(s) Cardiovascular Cardiovascular: Denies chest pain and Denies palpitations Respiratory Respiratory: Reports cough Endocrine Endocrine: Denies palpitations Physical Exam Vital Signs: Vital Signs: Last Vital Signs Temp 97.9 F 10/04/24 11:51 Pulse 68 10/04/24 11:51 Resp 20 10/04/24 11:51 BP 116/55 L 10/04/24 11:51 Pulse Ox 90 L 10/04/24 11:51 O2 Del Method Nasal Cannula 10/04/24 11:51 O2 Flow Rate 3 10/04/24 11:51 BMI result Body Mass Index 37.2 Const: General: cooperative, comfortable, no acute distress, alert and awake Nutritional Appearance: overweight Orientation/consciousness: patient oriented x3 Resp: Other: dry basilar rales; no wheeze Effort & Inspection: normal respiratory effort, able to speak in complete sentences, no respiratory distress and no use of accessory muscles GI: Inspection: No distended Palpation (GI): Soft to palpation Neuro: General: patient oriented x3, moves all extremities and CN's II-XI intact bilaterally Extrem: General: Yes no pedal edema Objective Data Active Medications Acetaminophen (Acetaminophen 325 Mg Tablet) 650 mg PO Q6H PRN PRN Reason: Pain, Mild (Pain Scale 1-3), fever or headache Acetazolamide (Acetazolamide 250 Mg Tablet) 250 mg PO BID [facility] Last Admin: 10/04/24 08:44 Dose: 250 mg Documented By: PENNY Albuterol Sulfate (Albuterol Sulfate (0.083%) 2.5 Mg/3 Ml Vial.Neb) 2.5 mg INHALE Q4H PRN PRN Reason: Dyspnea Albuterol/Ipratropium (Albuterol/Iprat 2.5/0.5mg 3 Ml Ampul.Neb) 3 ml INHALE Q4H [facility] Last Admin: 10/04/24 11:35 Dose: 3 ml Documented By: WILMER Apixaban (Apixaban 5 Mg Tablet) 5 mg PO BID [facility] Last Admin: 10/04/24 08:44 Dose: 5 mg Documented By: PENNY Aripiprazole (Aripiprazole 10 Mg Tablet) 10 mg PO DAILY [facility] Last Admin: 10/04/24 08:44 Dose: 10 mg Documented By: PENNY Aspirin (Aspirin Enteric Coated 81 Mg Tablet.Dr) 81 mg PO DAILY [facility] Last Admin: 10/04/24 08:44 Dose: 81 mg Documented By: PENNY Azithromycin (Azithromycin 500 Mg Tablet) 500 mg PO Q24H [facility] Last Admin: 10/03/24 21:35 Dose: 500 mg Documented By: SOFY Benzonatate (Benzonatate 100 Mg Capsule) 100 mg PO TID PRN PRN Reason: Cough Calcium Carbonate (Calcium Carbonate 750 Mg Tab.Chew) 750 mg PO Q4H PRN PRN Reason: Heartburn Cyclobenzaprine HCl (Cyclobenzaprine Hcl 5 Mg Tablet) 5 mg PO Q8H PRN PRN Reason: Muscle Pain Docusate Sodium (Docusate Sodium 100 Mg Capsule) 100 mg PO DAILY PRN PRN Reason: Constipation Fluticasone Propionate (Fluticasone Propionate Nasal 16 Gm Lolo) 1 spray NOSTRIL-B DAILY [facility] Last Admin: 10/04/24 08:54 Dose: Not Given Documented By: PENNY Non-Admin Reason: Med Not Available Fluticasone/Vilanterol (Fluticasone/Vilanterol 200/25 Blst.W.Dev) 1 puff INHALE RDAILY [facility] Last Admin: 10/04/24 11:35 Dose: 1 puff Documented By: WILMER Gabapentin (Gabapentin 100 Mg Capsule) 100 mg PO TID [facility] Last Admin: 10/04/24 08:44 Dose: 100 mg Documented By: PENNY Lactulose (Lactulose 20 Gm/30 Ml Solution) 20 gm PO DAILY PRN PRN Reason: Constipation Lamotrigine (Lamotrigine 100 Mg Tablet) 300 mg PO BEDTIME [facility] Last Admin: 10/03/24 21:35 Dose: 300 mg Lamotrigine (Lamotrigine 100 Mg Tablet) 200 mg PO DAILY [facility] Last Admin: 10/04/24 09:38 Dose: 200 mg Documented By: PENNY Magnesium Hydroxide (Milk Of Magnesia 30 Ml Oral.Susp) 30 ml PO DAILY PRN PRN Reason: Constipation Melatonin (Melatonin 3 Mg Tablet) 6 mg PO BEDTIME PRN PRN Reason: Insomnia Methylprednisolone Sodium Succinate (Methylprednisolone Sod Succ 40 Mg/Ml Vial) 40 mg IVPUSH Q12H [facility] Last Admin: 10/04/24 08:44 Dose: 40 mg Documented By: PENNY Metoprolol Succinate (Metoprolol Succinate Er 100 Mg Tab.Er.24h) 100 mg PO DAILY [facility]; Protocol Last Admin: 10/04/24 08:45 Dose: 100 mg Documented By: PENNY Mirtazapine (Mirtazapine 15 Mg Tablet) 15 mg PO BEDTIME [facility] Last Admin: 10/03/24 21:38 Dose: 15 mg Documented By: SOFY Montelukast Sodium (Montelukast Sodium 10 Mg Tablet) 10 mg PO BEDTIME [facility] Last Admin: 10/03/24 21:35 Dose: 10 mg Documented By: SOFY Non-Formulary Medication (Fluocinolone Acetonide Oil [Dermotic Oil]) 4 drop EAR-BOTH Q48H [facility] Omeprazole (Omeprazole 20 Mg Capsule.Dr) 20 mg PO DAILY@0630 [facility] Last Admin: 10/04/24 06:24 Dose: 20 mg Documented By: KEITH Ondansetron HCl (Ondansetron Hcl 4 Mg/2 Ml Vial) 4 mg IVPUSH Q8H PRN PRN Reason: Nausea and Vomiting Potassium Chloride (Potassium Chloride Er 10 Meq Tablet.Er) 10 meq PO DAILY [facility] Last Admin: 10/04/24 08:45 Dose: 10 meq Documented By: PENNY Salmeterol Xinafoate (Salmeterol Xinafoate 50 Mcg Blst.W.Dev) 1 puff INHALE RBID [facility] Last Admin: 10/04/24 11:35 Dose: 1 puff Documented By: WILMER Senna (Sennosides 8.6 Mg Tablet) 8.6 mg PO BEDTIME [facility] Last Admin: 10/03/24 21:35 Dose: 8.6 mg Documented By: SOFY Sodium Chloride (0.9 % Sodium Chloride Flush 3 Ml Syringe) 3 ml IVFLUSH QSHIFT [facility] Last Admin: 10/04/24 08:45 Dose: 3 ml Documented By: PENNY Theophylline (Theophylline Anhydrous Er 400 Mg Tab.Er.24h) 400 mg PO DAILY [facility] Last Admin: 10/04/24 08:45 Dose: 400 mg Documented By: PENNY Triamcinolone Acetonide (Triamcinolone Acet 0.5 % Cream 15 Gm Tube) 1 appl TOPICAL Q12H PRN PRN Reason: Itching Vilazodone HCl (Vilazodone Hcl 40 Mg Tablet) 40 mg PO DAILY [facility] Last Admin: 10/04/24 08:44 Dose: 40 mg Documented By: PENNY Vitamin D (Cholecalciferol (Vitamin D3) 25 Mcg Tablet) 50 mcg PO DAILY [facility] Last Admin: 10/04/24 08:44 Dose: 50 mcg Documented By: PENNY Labs 10/03/24 15:51 10/04/24 06:16 Labs: Laboratory Results - last 24 hr 10/03/24 10/03/24 10/04/24 15:51 16:03 06:16 MCV 92.1 MCH 29.1 MCHC 31.6 RDW 14.8 Plt Count 513 H MPV 8.9 L Immature Gran % (Auto) 1.1 H Neut % (Auto) 81.6 H Lymph % (Auto) 9.1 L [place] % (Auto) 7.3 Eos % (Auto) 0.7 Baso % (Auto) 0.2 Lymph # (Auto) 0.9 L [place] # (Auto) 0.7 Eos # (Auto) 0.1 Baso # (Auto) 0.0 Abs Immat Gran (auto) 0.11 H Absolute Neuts (auto) 8.3 Absolute Nucleated RBC 0.000 Nucleated RBC % (auto) 0.0 VBG pH 7.45 H VBG pCO2 86 VBG pO2 60 VBG HCO3 60 H VBG O2 Saturation 88.0 VBG Base Excess 31.0 Anion Gap 18 17 Estim Creat Clear Calc 66.5 62.6 Estimated GFR > 60 > 60 Random Glucose 114 136 H Calcium 10.3 H D 9.5 D Magnesium 1.8 B-Natriuretic Peptide 166 H Influenza Type A (PCR) NEGATIVE Influenza Type B (PCR) NEGATIVE RSV RNA Qual (PCR) NEGATIVE SARS-CoV-2 RNA (RT-PCR) NEGATIVE Assessment and Plan (1) Acute exacerbation of chronic obstructive pulmonary disease (COPD): Status: Acute Plan A 69-year-old female with PMH of chronic hypoxic hypercapnic failure due to COPD on 3L baseline oxygen at rest, 6 L during activity, BiPAP at night,HTN, CHF, mood disorder, PAF on Eliquis, osteoporosis who was recently discharged from hospital coming back for Dyspnea. Acute on chronic hypoxic respiratory failure 2/2 COPD exacerbation Required acute Bipap in ED, off bipap; on baseline O2 now CXR not showing any infiltrates, BNP lower than prev. Continue Duonebs and PRN Albuterol Continue IV Steroids Continue Theophylline, Montelukast and home inhalers Azithromycin for pleiotropic effect Wean O2 down as tolerated BiPAP at night chronic diastolic CHF not in exacerbation Hold Lasix and use Diamox for now bicarb trending down, likely resume lasix in am Monitor fluid status PAF , HR Controlled continue Metprolol and Eliquis HTN Blood pressure controlled Metoprolol GERD , PPI Mood disorder Continue baseline medications Grade 1 obesity BMI 37.2 Low calorie diet recommended DVT PPx Eliquis Requires ongoing inpatient stay for Hypoxic respiratory failure on IV Steroids and nebulizers Quality Stroke Does the patient have a stroke diagnosis?: No VTE Prior VTE?: No VTE Risk Level:: Medical - moderate - high VTE Device Contraindication: Treatment Not Indicated VTE Drug Contraindication: N/A - Med Ordered
[2024-10-04] MEDS: Sennosides 8.6 MG TABLET PO (21:10)
[2024-10-04] MEDS: Mirtazapine 15 MG TABLET PO (21:11)
[2024-10-04] MEDS: lamoTRIgine 100 MG TABLET 300 MG PO (21:11)
[2024-10-04] MEDS: Montelukast Sodium 10 MG TABLET PO (21:11)
[2024-10-04] MEDS: Azithromycin 500 MG TABLET PO (21:13)
[2024-10-05] VITALS (16 sets, daily range): BP systolic 113–140; BP diastolic 57–72; PULSE 57–68; RESP 18–20; TEMP 36–36.5; O2SAT 92–99
[2024-10-05] MEDS: Albuterol/Iprat 2.5/0.5MG 3 ML AMPUL.NEB INHALE ×6 (04:06→23:41)
[2024-10-05] MEDS: Omeprazole 20 MG CAPSULE.DR PO (06:05)
[2024-10-05] MEDS: 0.9 % Sodium Chloride Flush 3 ML SYRINGE IVFLUSH ×3 (06:08→19:58)
[2024-10-05 07:04] LABS: Anion Gap 13 (12-20); Blood Urea Nitrogen 21 mg/dL (9-16); Calcium 9.3 mg/dL (8.4-10.2); Carbon Dioxide 33 mmol/L (22-29); Chloride 100 mmol/L (96-108); Creatinine Clr Calc Pharmacy 54.8; Estimated Glomerular Filt Rate 57; Glucose Random 125 mg/dL (60-115); Potassium 4.9 mmol/L (3.3-5.1); Sodium 141 mmol/L (135-145)
[2024-10-05] MEDS: Salmeterol Xinafoate 50 MCG BLST.W.DEV 1 PUFF INHALE ×2 (07:48→18:41)
[2024-10-05] MEDS: Fluticasone/Vilanterol 200/25 BLST.W.DEV 1 PUFF INHALE (07:48)
[2024-10-05] MEDS: Vilazodone HCL 40 MG TABLET PO (08:48)
[2024-10-05] MEDS: acetaZOLAMIDE 250 MG TABLET PO (08:48)
[2024-10-05] MEDS: Theophylline Anhydrous ER 400 MG TAB.ER.24H PO (08:48)
[2024-10-05] MEDS: Aspirin Enteric Coated 81 MG TABLET.DR PO (08:48)
[2024-10-05] MEDS: Gabapentin 100 MG CAPSULE PO ×3 (08:48→19:57)
[2024-10-05] MEDS: Cholecalciferol (Vitamin D3) 25 MCG TABLET 50 MCG PO (08:48)
[2024-10-05] MEDS: Apixaban 5 MG TABLET PO ×2 (08:48→19:57)
[2024-10-05] MEDS: methylPREDNISolone Sod Succ 40 MG/ML VIAL IVPUSH (08:48)
[2024-10-05] MEDS: Metoprolol Succinate ER 100 MG TAB.ER.24H PO (08:49)
[2024-10-05] MEDS: Potassium Chloride ER 10 MEQ TABLET.ER PO (08:49)
[2024-10-05] MEDS: ARIPiprazole 10 MG TABLET PO (08:49)
[2024-10-05] MEDS: lamoTRIgine 100 MG TABLET 200 MG PO (08:49)
--- NOTE | 2024-10-05 10:49 | P.PNIM_ITS ---
Subjective Subjective Date of Service: 10/05/24 Interval History: seen and examined this morning follow up for COPD exacerbation reports feeling less sob, +cough has not been walking arond mych yest Review of Systems Review of Systems: Yes all other systems are reviewed and are negative Constitutional Constitutional: Denies chills and Denies fever(s) Cardiovascular Cardiovascular: Denies chest pain and Denies palpitations Respiratory Respiratory: Reports cough Endocrine Endocrine: Denies palpitations Physical Exam 2 Vital Signs: Vital Signs: Last Vital Signs Temp 97.2 F 10/05/24 07:58 Pulse 58 10/05/24 07:58 Resp 20 10/05/24 07:58 BP 113/60 10/05/24 07:58 Pulse Ox 98 10/05/24 07:58 O2 Del Method Room Air 10/05/24 07:58 O2 Flow Rate 3 10/04/24 15:32 BMI result Body Mass Index 37.2 Const: General: cooperative, comfortable, no acute distress, alert and awake Nutritional Appearance: overweight Orientation/consciousness: patient oriented x3 Resp: Other: good air entry b/l, no wheeze Effort & Inspection: normal respiratory effort, able to speak in complete sentences, no respiratory distress and no use of accessory muscles GI: Inspection: No distended Palpation (GI): Soft to palpation and nontender Neuro: General: patient oriented x3, moves all extremities and CN's II-XI intact bilaterally Extrem: General: Yes no pedal edema Objective Data Active Medications Acetaminophen (Acetaminophen 325 Mg Tablet) 650 mg PO Q6H PRN PRN Reason: Pain, Mild (Pain Scale 1-3), fever or headache Albuterol Sulfate (Albuterol Sulfate (0.083%) 2.5 Mg/3 Ml Vial.Neb) 2.5 mg INHALE Q4H PRN PRN Reason: Dyspnea Albuterol/Ipratropium (Albuterol/Iprat 2.5/0.5mg 3 Ml Ampul.Neb) 3 ml INHALE Q4H [facility] Last Admin: 10/05/24 07:48 Dose: 3 ml Documented By: WILMER Apixaban (Apixaban 5 Mg Tablet) 5 mg PO BID [facility] Last Admin: 10/05/24 08:48 Dose: 5 mg Documented By: PRECIOUS Aripiprazole (Aripiprazole 10 Mg Tablet) 10 mg PO DAILY [facility] Last Admin: 10/05/24 08:49 Dose: 10 mg Documented By: PRECIOUS Aspirin (Aspirin Enteric Coated 81 Mg Tablet.Dr) 81 mg PO DAILY [facility] Last Admin: 10/05/24 08:48 Dose: 81 mg Documented By: PRECIOUS Azithromycin (Azithromycin 500 Mg Tablet) 500 mg PO Q24H [facility] Last Admin: 10/04/24 21:13 Dose: 500 mg Documented By: KEITH Benzonatate (Benzonatate 100 Mg Capsule) 100 mg PO TID PRN PRN Reason: Cough Calcium Carbonate (Calcium Carbonate 750 Mg Tab.Chew) 750 mg PO Q4H PRN PRN Reason: Heartburn Cyclobenzaprine HCl (Cyclobenzaprine Hcl 5 Mg Tablet) 5 mg PO Q8H PRN PRN Reason: Muscle Pain Docusate Sodium (Docusate Sodium 100 Mg Capsule) 100 mg PO DAILY PRN PRN Reason: Constipation Fluticasone Propionate (Fluticasone Propionate Nasal 16 Gm [place]) 1 spray NOSTRIL-B DAILY [facility] Last Admin: 10/04/24 08:54 Dose: Not Given Documented By: PENNY Non-Admin Reason: Med Not Available Fluticasone/Vilanterol (Fluticasone/Vilanterol 200/25 Blst.W.Dev) 1 puff INHALE RDAILY [facility] Last Admin: 10/05/24 07:48 Dose: 1 puff Documented By: WILMER Furosemide (Furosemide 40 Mg Tablet) 40 mg PO DAILY [facility]; Protocol Gabapentin (Gabapentin 100 Mg Capsule) 100 mg PO TID [facility] Last Admin: 10/05/24 08:48 Dose: 100 mg Documented By: PRECIOUS Lactulose (Lactulose 20 Gm/30 Ml Solution) 20 gm PO DAILY PRN PRN Reason: Constipation Lamotrigine (Lamotrigine 100 Mg Tablet) 300 mg PO BEDTIME [facility] Last Admin: 10/04/24 21:11 Dose: 300 mg Documented By: KEITH Lamotrigine (Lamotrigine 100 Mg Tablet) 200 mg PO DAILY [facility] Last Admin: 10/05/24 08:49 Dose: 200 mg Documented By: PRECIOUS Magnesium Hydroxide (Milk Of Magnesia 30 Ml Oral.Susp) 30 ml PO DAILY PRN PRN Reason: Constipation Melatonin (Melatonin 3 Mg Tablet) 6 mg PO BEDTIME PRN PRN Reason: Insomnia Methylprednisolone Sodium Succinate (Methylprednisolone Sod Succ 40 Mg/Ml Vial) 40 mg IVPUSH Q24H [facility] Metoprolol Succinate (Metoprolol Succinate Er 100 Mg Tab.Er.24h) 100 mg PO DAILY [facility]; Protocol Last Admin: 10/05/24 08:49 Dose: 100 mg Documented By: PRECIOUS Mirtazapine (Mirtazapine 15 Mg Tablet) 15 mg PO BEDTIME [facility] Last Admin: 10/04/24 21:11 Dose: 15 mg Documented By: KEITH Montelukast Sodium (Montelukast Sodium 10 Mg Tablet) 10 mg PO BEDTIME [facility] Last Admin: 10/04/24 21:11 Dose: 10 mg Documented By: KEITH Non-Formulary Medication (Fluocinolone Acetonide Oil [Dermotic Oil]) 4 drop EAR-BOTH Q48H [facility] Omeprazole (Omeprazole 20 Mg Capsule.Dr) 20 mg PO DAILY@0630 [facility] Last Admin: 10/05/24 06:05 Dose: 20 mg Documented By: KEITH Ondansetron HCl (Ondansetron Hcl 4 Mg/2 Ml Vial) 4 mg IVPUSH Q8H PRN PRN Reason: Nausea and Vomiting Potassium Chloride (Potassium Chloride Er 10 Meq Tablet.Er) 10 meq PO DAILY [facility] Last Admin: 10/05/24 08:49 Dose: 10 meq Documented By: PRECIOUS Salmeterol Xinafoate (Salmeterol Xinafoate 50 Mcg Blst.W.Dev) 1 puff INHALE RBID [facility] Last Admin: 10/05/24 07:48 Dose: 1 puff Documented By: WILMER Senna (Sennosides 8.6 Mg Tablet) 8.6 mg PO BEDTIME [facility] Last Admin: 10/04/24 21:10 Dose: 8.6 mg Documented By: KEITH Sodium Chloride (0.9 % Sodium Chloride Flush 3 Ml Syringe) 3 ml IVFLUSH QSHIFT [facility] Last Admin: 10/05/24 08:49 Dose: 3 ml Documented By: PRECIOUS Theophylline (Theophylline Anhydrous Er 400 Mg Tab.Er.24h) 400 mg PO DAILY [facility] Last Admin: 10/05/24 08:48 Dose: 400 mg Documented By: PRECIOUS Triamcinolone Acetonide (Triamcinolone Acet 0.5 % Cream 15 Gm Tube) 1 appl TOPICAL Q12H PRN PRN Reason: Itching Vilazodone HCl (Vilazodone Hcl 40 Mg Tablet) 40 mg PO DAILY [facility] Last Admin: 10/05/24 08:48 Dose: 40 mg Documented By: PRECIOUS Vitamin D (Cholecalciferol (Vitamin D3) 25 Mcg Tablet) 50 mcg PO DAILY [facility] Last Admin: 10/05/24 08:48 Dose: 50 mcg Documented By: PRECIOUS Labs 10/03/24 15:51 10/05/24 06:24 Labs: Laboratory Results - last 24 hr 10/05/24 06:24 Hold Purple Top SEE NOTE Anion Gap 13 Estim Creat Clear Calc 54.8 Estimated GFR 57 Random Glucose 125 H Calcium 9.3 Assessment and Plan (1) Acute exacerbation of chronic obstructive pulmonary disease (COPD): Status: Acute Plan A 69-year-old female with PMH of chronic hypoxic hypercapnic failure due to COPD on 3L baseline oxygen at rest, 6 L during activity, BiPAP at night,HTN, CHF, mood disorder, PAF on Eliquis, osteoporosis who was recently discharged from hospital coming back for Dyspnea. Acute on chronic hypoxic respiratory failure 2/2 COPD exacerbation Required acute Bipap in ED, off bipap; on baseline O2 now CXR not showing any infiltrates, BNP lower than prev. Continue Duonebs and PRN Albuterol wean IV Steroids Continue Theophylline, Montelukast and home inhalers Azithromycin for pleiotropic effect Wean O2 down as tolerated BiPAP at night chronic diastolic CHF not in exacerbation Diamox x 2 days, bicarb trending down resume baseline lasix PAF , HR Controlled continue Metprolol and Eliquis HTN Blood pressure controlled Metoprolol GERD PPI Mood disorder Continue baseline medications Grade 1 obesity BMI 37.2 Low calorie diet recommended DVT PPx Eliquis pt evaluation pending - [facility] [place] [facility], likely [facility] upon discharge Requires ongoing inpatient stay for Hypoxic respiratory failure on IV Steroids and nebulizers Quality Stroke Does the patient have a stroke diagnosis?: No VTE Prior VTE?: No VTE Risk Level:: Medical - moderate - high VTE Device Contraindication: Treatment Not Indicated VTE Drug Contraindication: N/A - Med Ordered
--- NOTE | 2024-10-05 14:40 | MHC.CM.PN ---
EMR reviewed and per MD rounds, pt is not medically cleared for discharge due to management of COPD.
[2024-10-05] MEDS: Azithromycin 500 MG TABLET PO (19:57)
[2024-10-05] MEDS: Mirtazapine 15 MG TABLET PO (19:57)
[2024-10-05] MEDS: Montelukast Sodium 10 MG TABLET PO (19:58)
[2024-10-05] MEDS: lamoTRIgine 100 MG TABLET 300 MG PO (19:58)
[2024-10-05] MEDS: Sennosides 8.6 MG TABLET PO (19:58)
[2024-10-06] VITALS (8 sets, daily range): BP systolic 114–142; BP diastolic 57–65; PULSE 53–75; RESP 18–20; TEMP 36.1–36.4; O2SAT 94–99
[2024-10-06] MEDS: Albuterol/Iprat 2.5/0.5MG 3 ML AMPUL.NEB INHALE ×3 (03:08→11:24)
[2024-10-06] MEDS: Omeprazole 20 MG CAPSULE.DR PO (05:18)
[2024-10-06] MEDS: Salmeterol Xinafoate 50 MCG BLST.W.DEV 1 PUFF INHALE (07:33)
[2024-10-06] MEDS: Fluticasone/Vilanterol 200/25 BLST.W.DEV 1 PUFF INHALE (07:33)
[2024-10-06] MEDS: methylPREDNISolone Sod Succ 40 MG/ML VIAL IVPUSH (09:44)
[2024-10-06] MEDS: 0.9 % Sodium Chloride Flush 3 ML SYRINGE IVFLUSH (09:44)
[2024-10-06] MEDS: Furosemide 40 MG TABLET PO (09:46)
[2024-10-06] MEDS: Potassium Chloride ER 10 MEQ TABLET.ER PO (09:46)
[2024-10-06] MEDS: Metoprolol Succinate ER 100 MG TAB.ER.24H PO (09:47)
[2024-10-06] MEDS: Vilazodone HCL 40 MG TABLET PO (09:48)
[2024-10-06] MEDS: Theophylline Anhydrous ER 400 MG TAB.ER.24H PO (09:48)
[2024-10-06] MEDS: Cholecalciferol (Vitamin D3) 25 MCG TABLET 50 MCG PO (09:48)
[2024-10-06] MEDS: Apixaban 5 MG TABLET PO (09:48)
[2024-10-06] MEDS: ARIPiprazole 10 MG TABLET PO (09:49)
[2024-10-06] MEDS: Gabapentin 100 MG CAPSULE PO (09:49)
[2024-10-06] MEDS: Aspirin Enteric Coated 81 MG TABLET.DR PO (09:49)
[2024-10-06] MEDS: lamoTRIgine 100 MG TABLET 200 MG PO (09:50)
--- NOTE | 2024-10-06 10:56 | MHC.CM.PN ---
Per CONFIGURATION MANAGEMENT MANAGER, Patient is medically cleared for dc to SNF/STR today. Patient will dc to [facility] today at 1PM, via [facility]. Last IMM addressed on 10/04/2024. CM spoke with Son/Anthony @ [phone], and informed him of the dc plan.
--- NOTE | 2024-10-06 12:18 | P.DS_ITS ---
DS: Providers Provider Date of Service: 10/06/24 Date of admission: 10/03/24 20:04 Primary care physician: Yann Manzanares MD DS: Diagnosis Discharge Diagnosis (1) Acute exacerbation of chronic obstructive pulmonary disease (COPD): Status: Acute DS: Summary Hospital Course Hospital Course: History and physical as per admitting provider. A 69-year-old female with PMH of chronic hypoxic hypercapnic failure due to COPD on 3L baseline oxygen at rest, 6 L during activity, BiPAP at night,HTN, CHF, mood disorder, PAF on Eliquis, osteoporosis who was recently discharged from hospital coming back for Dyspnea. The patient was brought from [facility] by EMS for dyspneua with reported O@ sat of 70% on 3L. Started on CPAP and IV Lasix while on the way. In ED placed on Bipap and received Nebulizers with fair response. weaned down to Nasal cannula. The patient reports only feeling dyspniec with no reported altered mentation, cough, fever or chills. In ED a repeat CXR showed that CHF from last admission resolved with no clear infiltrates. BNP lower than last time checked while inpatient few days ago. Will be admitted for further work up and treatment. 69-year-old woman treated for acute on chronic hypoxic respiratory failure secondary to COPD exacerbation requiring BiPAP in the ED. Chest x-ray was negative for any infiltrates or effusion, low BNP. Treated with IV steroids, scheduled DuoNebs, azithromycin. Continued on theophylline, von took last and home inhalers. Patient was weaned down from oxygen and at this point doing well. No complaints of shortness of breath or cough. Plan is to transfer patient to short-term rehab for physical therapy chronic diastolic CHF not in exacerbation Diamox x 2 days, bicarb trended down. resume baseline lasix PAF , HR Controlled, continue Metprolol and Eliquis HTN .Blood pressure controlled Metoprolol GERD . PPI Mood disorder Continue baseline medications Grade 1 obesity BMI 37.2 Low calorie diet recommended Less than 30 day stay Time Attestation Discharge Coordination Time (in mins): 40 Quality: Safe Use of Opioids Does Pt have an Active Cancer Diagnosis on the Problem List?: No Quality: Stroke Does the patient have a stroke diagnosis?: No Physical Exam Vital Signs: Vital Signs: Last Vital Signs Temp 96.9 F 10/06/24 07:38 Pulse 75 10/06/24 11:25 Resp 20 10/06/24 11:25 BP 114/57 L 10/06/24 09:47 Pulse Ox 98 10/06/24 07:38 O2 Del Method Room Air 10/06/24 07:38 O2 Flow Rate 3 10/05/24 19:26 FiO2 40 10/05/24 23:32 BMI result Body Mass Index 37.2 Appearing in no acute distress head is normocephalic atraumatic eyes pupils are PERRLA sclera is anicteric mouth throat mucous membranes are intact and moist neck is supple no lymphadenopathy, no JVD noted lung sounds are clear to auscultation heart regular rate rhythm, clear S1, S2 positive bowel sounds, abdomen is soft, nontender neuro patient is alert x3, no focal deficits DS: Data Data Completed and Pending Completed studies during hospitalization [Text1]: Procedures Assistance with Respiratory Ventilation, Less than 24 Consecutive Hours, Continuous Positive Airway Pressure (08/20/24) Discharge Plan Discharge Anticipated Discharge Date/Time: 10/06/24 11:50 Patient Disposition: [facility] Discharge Diagnosis: Acute on chronic hypoxic respiratory failure COPD exacerbation Chronic diastolic congestive heart failure Referrals: [facility] [Outside] - 1 Week Yann Manzanares MD [Primary Care Provider] - 1 Week Discharge Medications: New prednisone 10 mg tablet See Taper PO DIRECTED Qty: 20 0RF Taper: Prednisone 40 mg daily for 2 Days and 0 Hour 30 mg daily for 2 Days and 0 Hour 20 mg daily for 2 Days and 0 Hour 10 mg daily for 2 Days and 0 Hour Rx Instructions: see taper instructions Continued acetaminophen 500 mg Tablet 1,000 mg PO Q8H PRN (Reason: Pain) aspirin 81 mg Tablet,Delayed Release (Dr/Ec) 81 mg PO DAILY alendronate [Fosamax] 70 mg Tablet 70 mg PO DOMINGUEZ lamotrigine 150 mg Tablet 300 mg PO BEDTIME montelukast 10 mg Tablet 10 mg PO BEDTIME albuterol sulfate [Proventil HFA] 90 mcg/actuation Hfa Aerosol Inhaler 2 puff INHALATION Q6H PRN (Reason: Respiratory Distress) cholecalciferol (vitamin D3) [Vitamin D3] 50 mcg (2,000 unit) Capsule 50 mcg PO DAILY mirtazapine 15 mg tablet 15 mg PO BEDTIME metoprolol succinate 50 mg Tablet Extended Release 24 Hr 100 mg PO DAILY betamethasone dipropionate 0.05 % cream 1 appl topical Q12H PRN (Reason: Dermititis ) Rx Instructions: to face cyclobenzaprine 5 mg tablet 5 mg PO Q8H PRN (Reason: Muscle Pain) lactulose 10 gram/15 mL solution 30 ml PO DAILY PRN (Reason: Constipation) Rx Instructions: If no BM in 2 days fluocinolone acetonide oil [DermOtic Oil] 0.01 % Drops 4 drp OTIC (EARS) Q48H diclofenac sodium 1 % gel 1 g topical Q12H PRN (Reason: Pain) theophylline 200 mg tablet extended release 12 hr 200 mg PO BID docusate sodium 100 mg capsule 100 mg PO DAILY PRN (Reason: Constipation) pantoprazole 40 mg tablet,delayed release (DR/EC) 40 mg PO DAILY@0630 fluticasone furoate-vilanterol [Breo Ellipta] 200-25 mcg/dose blister with device 1 inh INHALATION DAILY albuterol sulfate 2.5 mg /3 mL (0.083 %) solution for nebulization 2.5 mg inhalation Q6H PRN (Reason: wheezing) calcium carbonate-vitamin D3 [Oyster Shell Calcium-Vit D3] 500 mg-10 mcg (400 unit) Tablet 1 tab PO BID lamotrigine 200 mg Tablet 200 mg PO DAILY Serevent Diskus 50 mcg/dose Blister With Device 1 inh INHALATION BID mineral oil Oil 1 appl TOPICAL Q48H PRN (Reason: eczema) Rx Instructions: apply to both outer ears topically aripiprazole 10 mg tablet 10 mg PO DAILY omega [id number] oil [Fish Oil] 1,000 mg (120 mg-180 mg) Capsule 1 cap PO BID Eliquis 5 mg tablet 5 mg PO BID furosemide 40 mg Tablet 40 mg PO DAILY Qty: 30 0RF Protocol: Hold for SBP< HOLD for SBP < : 90 potassium chloride [Klor-Con M10] 10 mEq tablet,ER particles/crystals 10 meq PO DAILY sennosides [Senokot] 8.6 mg tablet 8.6 mg PO BEDTIME Rx Instructions: Hold for loose stools gabapentin 100 mg capsule 100 mg PO TID (DME) nebulizers Misc See Rx Instructions .Route Rx Instructions: As directed fluticasone propionate 50 mcg/actuation spray,suspension 1 spray intranasal DAILY vilazodone 40 mg tablet 40 mg PO DAILY (DME) Oxygen Home Use Kit See Rx Instructions .Route Rx Instructions: As directed Discontinued prednisone 10 mg tablet See Taper PO DIRECTED Taper: Prednisone 20 mg daily for 2 Days and 0 Hour 10 mg daily for 5 Days and 0 Hour Rx Instructions: see taper instructions; 30 mg daily x2 days, 20 mg daily x2 days, 10 mg daily x5 days Discharge Orders: Discharge Order (Routine); Ordered 10/06/24 Ordered By: Martha Acharya Diet: Advance to usual diet Activity on Discharge: As tolerated Stand Alone Forms: Patient Portal Discharge page Print Language: Azerbaijani Care Plan Goals: Complete steroid taper Health Concerns: Acute on chronic hypoxic respiratory failure COPD exacerbation Chronic diastolic congestive heart failure Plan of Treatment: Follow-up with primary care provider as needed Take all medications as prescribed Assessment: See discharge summary
== END 2024-10-06 13:20 | disposition skilled nursing facility (03) | DRG 190 ==
LOC: HO.ED 19:44 → HO.EDOVER 20:21 → HO.IMC 23:39 → HO.EDOVER 23:45 → HO.IMC 10-04 03:34
PROVIDERS: Physician Assistant Medical; Admitting Provider Student in an Organized Health Care Education/Training Program; Emergency Provider Emergency Medicine; PCP Student in an Organized Health Care Education/Training Program; Visit Provider Nurse Practitioner Acute Care
DX: J44.1 Chronic obstructive pulmonary disease with (acute) exacerbation (principal); J96.21 Acute and chronic respiratory failure with hypoxia; J96.22 Acute and chronic respiratory failure with hypercapnia; I50.32 Chronic diastolic (congestive) heart failure; K21.9 Gastro-esophageal reflux disease without esophagitis; I11.0 Hypertensive heart disease with heart failure; I48.0 Paroxysmal atrial fibrillation; E66.811 Obesity, class 1; Z68.37 Body mass index [BMI] 37.0-37.9, adult; Z71.3 Dietary counseling and surveillance; Z20.822 Contact with and (suspected) exposure to COVID-19; Z87.891 Personal history of nicotine dependence; Z99.81 Dependence on supplemental oxygen; Z79.01 Long term (current) use of anticoagulants; Z79.51 Long term (current) use of inhaled steroids; Z79.899 Other long term (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 therapy
CPT/HCPCS: 0241U; 36415; 71045; 80048; 82803; 83735; 83880; 85025; 93005; 94640; 94660; 97162; 99285; J2919

== ENCOUNTER → 2024-10-03 14:28 | Outpatient (BNV) | payer MEDICARE, MEDICAID, SELFPAY | PROVIDERS: Emergency Provider Emergency Medicine; PCP Student in an Organized Health Care Education/Training Program; Visit Provider Internal Medicine Cardiovascular Disease | DX: R06.2 Wheezing (principal) | CPT/HCPCS: 93010 ==

== ENCOUNTER → 2024-10-03 20:04 | Outpatient (BNV) | payer MEDICARE, MEDICAID, SELFPAY | PROVIDERS: Admitting Provider Student in an Organized Health Care Education/Training Program; Emergency Provider Emergency Medicine; PCP Student in an Organized Health Care Education/Training Program; Visit Provider Student in an Organized Health Care Education/Training Program | DX: J44.1 Chronic obstructive pulmonary disease with (acute) exacerbation (principal); J96.21 Acute and chronic respiratory failure with hypoxia; J96.12 Chronic respiratory failure with hypercapnia | CPT/HCPCS: 99223; 99232; 99239 ==

== ENCOUNTER 2024-10-22 10:31 | Outpatient (AMB) | payer MEDICARE, MEDICAID, SELFPAY ==
[2024-10-22 10:34] VITALS: BP 112/60; PULSE 79; O2SAT 94
--- NOTE | 2024-10-22 10:34 | A.OFFVIS_ITS ---
Vital Signs 10/22/24 10:34 Weight 194 lb 0.108 oz BP 112/60 Blood Pressure Location Lt brachial Position Sitting Pulse 79 Pulse Source Pulse Oximeter Pulse Oximetry (%) 94 Oxygen Delivery Method Nasal Cannula Oxygen Flow Rate 3 Intake Visit Reasons: COPD Allergies codeine [Codeine] Allergy (Intermediate, Verified 10/22/24 10:39) RESTLESS/RASH haloperidol [Haldol] Allergy (Intermediate, Verified 10/22/24 10:39) Palpitations Sulfa (Sulfonamide Antibiotics) Allergy (Intermediate, Verified 10/22/24 10:39) HIVES Medication List - Last Reconciled 10/22/24 by Marga Ruffin LPN acetaminophen 1,000 mg PO Q8H PRN albuterol sulfate 90 mcg/actuation (Proventil HFA) 2 puffs inhalation Q6H PRN albuterol sulfate 2.5 mg inhalation Q6H PRN alendronate (Fosamax) 70 mg PO DOMINGUEZ apixaban (Eliquis) 5 mg PO BID aripiprazole 10 mg PO DAILY aspirin 81 mg PO DAILY betamethasone dipropionate 0.05% 1 appl topical Q12H PRN calcium carbonate-vitamin D3 500 mg-10 mcg (400 unit) (Oyster Shell Calcium- Vitamin D3) 1 tab PO BID cholecalciferol (vitamin D3) (Vitamin D3) 50 mcg PO DAILY cyclobenzaprine 5 mg PO Q8H PRN diclofenac sodium 1% 1 g topical Q12H PRN docusate sodium 100 mg PO DAILY PRN fluocinolone acetonide oil 0.01% (DermOtic Oil) 4 drps otic (ears) Q48H fluticasone furoate-vilanterol 200-25 mcg/dose (Breo Ellipta) 1 inh inhalation DAILY fluticasone propionate 50 mcg/actuation 1 spray intranasal DAILY furosemide 40 mg See Protocol PO DAILY gabapentin 100 mg PO TID lactulose 30 mL PO DAILY PRN lamotrigine 300 mg PO BEDTIME lamotrigine 200 mg PO DAILY metoprolol succinate ER 100 mg PO DAILY mineral oil 1 appl topical Q48H PRN mirtazapine 15 mg PO BEDTIME montelukast 10 mg PO BEDTIME nebulizers As directed omega 1-kur-lts-fish oil 1,000 (120-180) mg (Fish Oil) 1 cap PO BID Oxygen Home Use As directed pantoprazole 40 mg PO DAILY@0630 potassium chloride ER (Klor-Con M) 10 mEq PO DAILY prednisone See Taper mg PO DIRECTED salmeterol (Serevent Diskus) 1 inh inhalation BID sennosides (Senokot) 8.6 mg PO BEDTIME theophylline ER 200 mg PO BID vilazodone 40 mg PO DAILY HPI Comments Details: The patient is a 69-year-old woman with known history of COPD and chronic hypoxic and hypercarbic respiratory failure. She 1st did require a tracheostomy in the past and she had a prolonged hospitalization which she was able to be decannulated. She was then placed on noninvasive ventilation. The patient has been inconsistent with the usage. In January of this year the patient was admitted to the hospital with acute on chronic hypercarbic respiratory failure where her pCO2 was about 118 mmHg.. The patient was placed on noninvasive ventilation and her pH normalize and her average pCO2 was between 60-70. She was discharged to use her trilogy at home. At home she is still struggling with the noninvasive ventilator. She has a hard time getting used to it. Her [employer] will be performing overnight oximetry with an end-tidal CO2 to measure her see you to into appropriately adjust her noninvasive ventilator. She also has made mentioning that she has been more short of breath and she has had more hypoxia. In the office we did perform a 6 minutes walk test and she did require 2 L nasal cannula to maintain her pulse ox above 90%. Therefore, she will be using 3 L instead of to with activity and also with sleep. 04/15/2023 the patient is here for pulmonary follow-up visit. She still residing at the [facility]. She is using her trilogy noninvasive ventilator every night. However, she has been using more recently because she ended up in the hospital. She was having chest pressure sensation and dizziness. During the hospitalization at [facility] the patient states that she had an ABG done demonstrating a pCO2 58 and per report was okay. Therefore, will hold off on doing an ABG today. The patient has been fairly relatively well from a respiratory status. She does complaint of heaviness of the chest. On examination she is very diminished. Therefore likely has significant air trapping hyperinflation them every resulting in some chest pressure sensation. I did recommend she start using the trilogy with a sip and puff during the daytime to help her with the air trapping. The patient has also gained weight and that is also going to contribute to additional respiratory symptoms. The patient needs to start working on weight management with the help of the services provided. The patient is using her diuretics with good effect. No significant edema at this time. It is not clear if she is using the theophylline. She has been on multiple medications and has got to multiple inst itutions so therefore it is hard to know if those removed and if it was stopped for particular reason. We should recheck her theophylline levels if she is on theophylline. Otherwise restart the theophylline if she is off it and then recheck levels. She should stay within the low therapeutic range to help her with her severe COPD. Patient is using her oxygen at 3 L continues with good effect. Again, I reached out to the [employer], [employer], to rete she had uses sip and puff device that she can use during the daytime 06/17/2023 the patient is here for pulmonary follow-up visit. The patient has been doing well. She is looking now to move to a intermediate. in the meantime she is using her noninvasive ventilator. The noninvasive ventilator has been affecting beneficial. We did have her undergo a venous blood gas in appears that her pH is stable. She understands that if she does move to a intermediate she went to find a way to make sure that she continues use her noninvasive ventilator as prescribed. She continues on respiratory therapy. She continues oxygen supplementation at 3 L could would response. 09/20/2023 the patient has a telehealth visit today. Unfortunately she could not make it in from her residence. She has been more depressed lately. She has recently found out that she lost the services from her [facility]. There been with her for many years. In addition to that the patient has not been using her Trelegy ventilator. She is try to find out how long she can go without it. She was wondering if she can have blood work to see how well her CO2 is while she is not using it. However, I encouraged her to use it since we know that her baseline CO2 is already elevated and by using the ventilator she has better reserved in case she develops an exacerbation or an acute illness. The patient will start using her ventilator at nighttime. I did put him for blood work and she can always have the blood work done here or she can find out another means of doing a. But getting a blood gas will be difficult to do otherwise. The patient did recently have a respiratory illness with a virus. Was not COVID. She was not giving any prednisone or antibiotics. Her cough is not too bad. If the cough worsens with worsening congestion then using a antibiotic to minimize on the postviral bacterial infections would be reasonable. 12/23/2023 the patient is here for a pulmonary follow-up visit. Since we last spoke the patient did have a fall on her [facility] [facility]. She fractured multiple ribs and was admitted to [facility] with acute on chronic hyperc arbic respiratory failure. She was placed on BiPAP and was able to stabilize. She did not require invasive ventilation. The patient had not been using her noninvasive ventilator at the [facility]. This is unfortunate. She understands the with her condition she relies on this therapy. The patient has been using now regularly since she was discharged from the hospital. She is looking to be placed in a intermediate. Therefore, she is making the arrangements. We did have her undergo a venous blood gas today and her acid- base status is stable and pCO2 is back to her baseline. Her bicarbonate always will be elevated to try to compensate for the hypercarbia and right now is at 37. she does continue to use her respiratory therapy as prescribed. She is also using oxygen continuously throughout the day with good effect. Once the patient is out of the [place] [facility] to a intermediate will see about getting pulmonary function studies and starting outpatient pulmonary rehabilitation. Also to note while she was at [facility] she did have a CT scan of the chest that was personally by me. She had multiple rib fractures on the left 1 which was displaced. Also has small subcentimeter pulmonary nodule that will follow-up in a year's time. 02/21/2024 the patient is here for pulmonary follow-up visit. The patient overall has been doing well. She did move out of the [place] [facility] in currently in a intermediate. She is getting a lot of support. She is taking all her medications. Although, the theophylline 400 mg is not available. I will try sending her a different does see that was available and also will check theophylline levels. The patient has been using her noninvasive ventilator at nighttime. The therapy has been affecting beneficial. We did have her get blood work and it appears that her bicarb is down to 32 which is very encouraging. The patient also has been using her oxygen at 3 L continues will keep a go above 88%. The patient is able to increase it to 4 L if her oxygen is dropping below 88%. Will go ahead and request pulmonary function studies and plan for pulmonary rehabilitation at this time. Will follow-up in 3 months or sooner if any new issues arise. 05/24/2024 the patient is here for a pulmonary follow-up visit. She was recently at [facility]. There was an issue with her oxygen. Now she is back to her intermediate. the having hard time regulating her oxygen. We did have her come in for 6 minute walk test. The patient needs 6 L of oxygen with activity and at least 2 L at rest. Although typically she needs more than 2 to keep her pulse ox above 90%. We did review her CT scan of the chest that she had while at [facility]. She has extensive emphysema which explains her very labile oxygen requirements. In addition to that she does have some pulmonary nodules that appear to have increased in size primarily in the left hemithorax. She will need a repeat CT scan in the next 3 months. She has minimal reserve. We did look at her previous PFTs demonstrating very severe COPD and severe diffusion impairment. however, the patient has been fairly well although she has had although severe disease. She has been using her noninvasive ventilator at nighttime. At least 6 hours. We did have her go for blood work including a venous gas demonstrating appears due to a baseline 61 mm of Hg. The patient does have some lower extremity edema. She will benefit from additional diuresis. In addition to that she is having increased wheezing chest tightness and cough. Therefore will send her a prednisone taper and also start an antibiotic. This will be to treat her for COPD exacerbation. She has participating in the pulmonary rehabilitation. She has fine the very affecting beneficial. She will continue for now. 07/06/2024 the patient is here for a pulmonary follow-up visit. She has been in an out of hospital. She has been trying to use her noninvasive ventilator more regularly. She understands it is a necessity for her to use it at least every night. She also continues with respiratory therapy. She has been responding well to the oxygen supplementation. Last blood gas was back the end of May emonstrating a pCO2 around 70 which is close to her baseline. She continues with respiratory therapy with good effect. Appears to have increasing lower extremity edema. Likely secondary to a component I will call pulmonale. Needs to continue with a low sodium diet and diuresis. CXR from 06/21/23 personally reviewed by me without any acute changes. 09/13/2024 the patient has a telehealth visit today. She is status post couple hospitalizations. Now she is at rehab and this is a telehealth. The patient initially was admitted to [facility] back at the end of June with acute on chronic respiratory failure. She was diagnosed with COVID a. During that admission she did have a CT a that I did evaluate. She did have an irregular nodular density in the left upper lobe likely infectious process although since his new and she is high risk for cancer we can not rule out malignancy. She was treated and then subsequently discharged back to her intermediate. Subsequently after that she went to [facility]. The details are not available but she likely had a tachyarrhythmia. She did require cardioversion. Afterwards the patient was transferred to [facility] which is currently getting rehabilitation. She feels weak. She has a hard time walking. Her oxygen requirements are still about the same 3 L at rest and 6 L with activity. She is also having issues with her noninvasive ventilator which she is waking up short of breath. Therefore, will have her have a repeat 6 minute walk test while she is there she should also continue with multi disciplinary therapies in addition to that will talk to respiratory there to see if they can tweak her ventilator to a higher pressure to help her with those difficult times. The patient plans to go back to her intermediate. 10/22/2024 the patient is here for hospital follow-up visit. She had been in the hospital with acute on chronic hypoxic and hypercarbic respiratory failure and subsequently went to [facility]. She is currently read some. She is not going back to the intermediate. She is trying to feel better enough to be able to go to her daughter's. There she could have some assistance from with the family and also some medical assistance. But she is still not clear. She does use the noninvasive ventilator. She did get an placement while at rest own. She is tolerating well. Will have her get a blood gas to see what her CO2 is. In addition to that which she check her theophylline level since she has noticed some tachycardia. She continues to feel weak. She feels like her legs want to give out when she is ambulating. Strikes me that could be related to her CO2 as she has had issues with falls and weakness when her CO2 elevates. [facility] Medical History Cor pulmonale Rib fractures Pulmonary nodule Tubular adenoma of colon (~2006) Osteopenia (~2012) Bronchopneumonia Chest pain Chronic respiratory alkalosis ILD (interstitial lung disease) CO2 retention Acute on chronic respiratory failure with hypoxia and hypercapnia Bipolar depression Eczema Limb swelling Insomnia Bronchitis Vasomotor rhinitis COPD (chronic obstructive pulmonary disease) Chronic respiratory failure Fall Acute metabolic encephalopathy Acute and chronic respiratory failure with hypercapnia Surgical History History of carpal tunnel surgery (~2000) History of ventral hernia repair (~2003) History of left inguinal hernia repair (~1995) History of tracheostomy (~2016) History of cataract surgery (~2018) History of colonoscopy Family History Other Hypertension Social History Household Members: None Household Members Other:: intermediate Housing: Other Housing Other:: intermediate Are you a primary housekeeper child care to a significant other at home: No Do you presently have visiting nurse or other home services: Yes (intermediate services) Alcohol intake: former Patient Tobacco Use Status: Former Tobacco user Tobacco use type: Cigarette Years Smoked: 20+ years e-Cigarette/Vaping Use: Never Used Second Hand Smoke Exposure: No Advance Directives Date on File: 11/30/21 service: No Current occupational status: disabled Review of Systems Const Reports fatigue, Denies night sweats and Reports weight gain ENT Denies change in voice, Denies lip swelling, Denies mouth pain, Reports nasal congestion, Reports nasal discharge and Denies tongue swelling Card Denies chest pain, Reports pedal edema, Denies leg edema, Reports dyspnea and Reports dyspnea on exertion Resp Denies change in phlegm color, Denies chest congestion, Reports cough, Reports dyspnea, Reports dyspnea on exertion and Reports wheezing GI Denies abdominal pain Musc Denies no additional complaints, Reports abnormal gait and Reports muscle weakness Skin/Breast Reports erythema and Reports skin swelling Neuro Denies Neuro-related abnormal movements, Reports abnormal gait, Reports memory loss and Reports tremor(s) Psych Reports depression and Reports memory loss Endo Reports fatigue Gerson/Lymph Denies easy bleeding and Denies lymphadenopathy Aller/Immun Denies lip swelling, Denies tongue swelling and Reports wheezing Physical Exam Vital Signs: Last Vital Signs Pulse 79 10/22/24 10:34 BP 112/60 10/22/24 10:34 Pulse Ox 94 10/22/24 10:34 Oxygen Delivery Method Nasal Cannula 10/22/24 10:34 Oxygen Flow Rate 3 10/22/24 10:34 Last Vital Signs Temp 98.2 F 04/15/22 15:12 Pulse 97 04/15/22 15:26 Resp 18 04/15/22 15:26 BP 144/69 H 04/15/22 15:12 Pulse Ox 94 04/15/22 15:12 Oxygen Flow Rate 3 04/13/22 08:52 BMI result Body Mass Index 31.3 Const General: alert Neck Neck: Yes normal visual inspection, Yes full ROM and Yes no lymphadenopathy Chest Chest palpation & inspection: normal inspection of the chest Resp Effort & Inspection: normal respiratory effort and prolonged expiratory phase Auscultation: diminished lung sounds Cardio Rate: regular rate Rhythm: regular rhythm Heart sounds: S1 normal heart sound present and S2 normal heart sound present GI Palpation (GI): Soft to palpation and nontender Auscultation: normal bowel sounds Skin General skin exam: rashes and/or lesions noted Assessment & Plan Assessment & Plan (1) COPD (chronic obstructive pulmonary disease): Code(s): J44.9 - Chronic obstructive pulmonary disease, unspecified Category: Medical Qualifiers: COPD type: emphysema Emphysema type: centrilobular Qualified Code(s): J43.2 - Centrilobular emphysema (2) Chronic respiratory failure: Code(s): J96.10 - Chronic respiratory failure, unspecified whether with hypoxia or hypercapnia Category: Medical Qualifiers: Respiratory failure complication: hypoxia and hypercapnia Qualified Code(s): J96.11 - Chronic respiratory failure with hypoxia; J96.12 - Chronic respiratory failure with hypercapnia (3) Insomnia: Code(s): G47.00 - Insomnia, unspecified Category: Medical Qualifiers: Insomnia type: primary Qualified Code(s): F51.01 - Primary insomnia (4) Pulmonary nodule: Code(s): R91.1 - Solitary pulmonary nodule Category: Medical (5) Respiratory failure: Code(s): J96.90 - Respiratory failure, unspecified, unspecified whether with hypoxia or hypercapnia Category: Medical Qualifiers: Chronicity: chronic Respiratory failure complication: hypoxia and hypercapnia Qualified Code(s): J96.11 - Chronic respiratory failure with hypoxia; J96.12 - Chronic respiratory failure with hypercapnia (6) Chronic hypoxic respiratory failure: Code(s): J96.11 - Chronic respiratory failure with hypoxia Category: Medical Plan continue nighttime noninvasive ventilator use. continue Breo continue Incruse continue respiratory therapy oxygen at 3 liters/minute at rest and 6L/minute weight management continue inpt pulmonary rehab Will need a f/u CT chest in 3 months F/U 2 months Orders: Orders Venous Blood Gas Today J96.11 - Chronic respiratory failure with hypoxia Complete Blood Count Auto Diff Today J96.11 - Chronic respiratory failure with hypoxia Theophylline Today J96.11 - Chronic respiratory failure with hypoxia Basic Metabolic Panel Today J96.11 - Chronic respiratory failure with hypoxia Coding Level of Care Code Est Pt Level 4 (78633) Complex EM visit Add On G2211 Diagnoses Centrilobular emphysema J43.2 COPD type: emphysema Emphysema type: centrilobular Chronic respiratory failure with hypoxia and hypercapnia J96.11; J96.12 Respiratory failure complication: hypoxia and hypercapnia Primary insomnia F51.01 Insomnia type: primary Pulmonary nodule R91.1 Chronic respiratory failure with hypoxia and hypercapnia J96.11; J96.12 Chronicity: chronic Respiratory failure complication: hypoxia and hypercapnia Chronic hypoxic respiratory failure J96.11 Time Spent (min) 20
== END 2024-10-22 11:02 | disposition home or self-care (01) ==
PROVIDERS: PCP Student in an Organized Health Care Education/Training Program; Visit Provider Hospitalist
DX: J43.2 Centrilobular emphysema (principal); J96.11 Chronic respiratory failure with hypoxia; J96.12 Chronic respiratory failure with hypercapnia; F51.01 Primary insomnia; R91.1 Solitary pulmonary nodule
CPT/HCPCS: 99214; G2211

== ENCOUNTER 2024-10-22 10:31 | Outpatient (REF) | payer MEDICARE, MEDICAID, SELFPAY ==
--- NOTE | ~2024-10-22 | XR_ITS ---
EXAMINATION: XR CHEST CLINICAL INFORMATION: Cough, unspecified. COMPARISON: 10/03/2024, 09/27/2024, and 08/05/[address] angiogram chest 07/27/2024. TECHNIQUE: 2 views of the chest were obtained. FINDINGS: Redemonstration of multiple old healed left rib fractures. There is no gross pneumothorax. Cardiac silhouette remains borderline enlarged with persistent hilar enlargement. Persistent diffuse interstitial opacities, predominantly lower lungs. Persistent left upper lung nodular densities. Persistent left costophrenic angle pleural process, possibly related to pleural plaques, thickening and/or trace effusion. Redemonstration of mild compression deformities of T10 and T12. Degenerative changes in the thoracic spine. XR/XR chest 2V IMPRESSION: Persistent diffuse interstitial opacities, predominantly lower lungs. Persistent left upper lung nodular densities. Persistent left costophrenic angle pleural process, possibly related to pleural plaques, thickening and/or trace effusion. This study was presented today October 22, 2024 for interpretation. Stat results provided at this time as requested by referring provider. Electronically signed by: Kellee Monson MD 10/22/2024 02:09 PM [facility]
[2024-10-22 11:24] LABS: MANUAL DIFF FLAG NO
[2024-10-22 11:27] LABS: Basophils Percent Auto 0.5 % (0-2); Eosinophils Absolute Auto 0.2 X10*3/uL (0.0-0.4); Eosinophils Percent Auto 2.5 % (0-4); Hematocrit 33.7 % (37.0-47.0); Hemoglobin 10.1 g/dl (12.0-16.0); Imm Gran Abs Auto 0.06 X10*3/uL (0.00-0.03); Imm Gran Pct Auto 0.7 % (0.0-0.4); Lymphocytes Absolute Auto 0.5 X10*3/uL (1.2-4.9); Lymphocytes Percent Auto 5.6 % (20-40); Mean Corpuscular Hemoglobin 28.1 pg (27.0-33.0); Mean Corpuscular Volume 93.6 fL (80.0-98.0); Mean Platelet Volume 8.8 fL (9.4-12.3); Monocytes Absolute Auto 0.5 X10*3/uL (0.1-1.2); Monocytes Percent Auto 5.8 % (2-11); Neutrophils Absolute Auto 7.5 x10*3/uL (2.0-8.3); Neutrophils Percent Auto 84.9 % (45-73); Platelet Count 394 X10*3/uL (160-400); Red Cell Distribution Width 14.8 % (11.0-16.0); White Blood Count 8.8 X10*3/uL (4.8-10.8)
[2024-10-22 11:30] LABS: Venous Blood Gas Refer to POC result
[2024-10-22 11:31] LABS: VBG Base Excess 20.9 mmol/L; VBG HCO3 51 mmol/L (22-26); VBG pCO2 92 mmHg; VBG pH 7.35 (7.32-7.43); VBG pO2 28 mmHg
[2024-10-22 11:44] LABS: Blood Urea Nitrogen 13 mg/dL (9-16); Calcium 9.4 mg/dL (8.4-10.2); Estimated Glomerular Filt Rate 58; Glucose Random 106 mg/dL (60-115)
[2024-10-22 12:02] LABS: Anion Gap 10 (12-20); Carbon Dioxide 43 mmol/L (22-29); Chloride 90 mmol/L (96-108); Potassium 3.5 mmol/L (3.3-5.1); Sodium 139 mmol/L (135-145)
[2024-10-23 08:07] LABS: Theophylline 7.3
== END 2024-10-22 10:32 | disposition home or self-care (01) ==
LOC: HO.XRAY 10:31
PROVIDERS: PCP Student in an Organized Health Care Education/Training Program; Visit Provider Hospitalist
DX: J96.11 Chronic respiratory failure with hypoxia (principal); R05.9 Cough, unspecified; J43.2 Centrilobular emphysema; J96.12 Chronic respiratory failure with hypercapnia; F51.01 Primary insomnia; R91.1 Solitary pulmonary nodule
CPT/HCPCS: 36415; 71046; 80048; 80198; 82803; 85025; 99212

== ENCOUNTER 2024-11-15 14:03 | Outpatient (REF) | payer MEDICARE, MEDICAID, SELFPAY ==
--- OUTSIDE RECORDS SUMMARY | 2024-11-15 14:50 | XMS_ITS | Clinical Summary ---
Author Organization Unknown Care Team Providers Care Pharmacy Helper Name Role Phone LUCILA ARRINGTON, EDMOND Unavailable Unavailable ERIS PT, MICHAEL Unavailable Unavailable BYRNES TIMBER MANAGEMENT TECHNICIAN, CHI Unavailable Unavailable [place] OT, TAMMIE Unavailable Unavailable CONDINO BENIGNO/SOLIS, MARIAMA Unavailable Unav ailable [facility], KELLY Unavailable Unavailable MARGOTH RYAN, CHANDRAKANT Unavailable Unavailable RYAN PASTOR, GENTRY Unavailable Unavailabl e Payers Payer Name Policy Type Policy Number Effective Date Expira tion Date MEDICARE.NGS.PDGM [id number] Problems Condition Name Condition Details Condition Category Status Onset Date Resolution Date Last Treatment Date Treating Clinician Comments CHRONIC OBSTRUCTIVE PULMONARY DISEASE W (ACUTE) EXACERBATION Active 2023-11 00:00: 00 EMPHYSEMA, UNSPECIFIED Active 2023-11 00:00: 00 ACUTE AND CHRONIC RESPIRATORY FAILURE WITH HYPOXIA Active 2023-11 00:00: 00 ACUTE AND CHRONIC RESPIRATORY FAILURE WITH HYPERCAPNIA Active 2023-11 00:00: 00 PAROXYSMAL ATRIAL FIBRILLATION Active 2023-11 00:00: 00 HYPERTENSIVE HEART DISEASE WITH HEART FAILURE Active 2023-11 00:00: 00 ACUTE ON CHRONIC DIASTOLIC (CONGESTIVE) HEART FAILURE Active 2023-11 00:00: 00 UNSPECIFIED ATRIAL FLUTTER Active 2023-11 00:00: 00 AGE-RELATED OSTEOPOROSIS W/O CURRENT PATHOLOGICAL FRACTURE Active 2023-11 00:00: 00 POST-TRAUMAT IC STRESS DISORDER, UNSPECIFIED Active 2023-11 00:00: 00 ANXIETY DISORDER, UNSPECIFIED Active 2023-11 00:00: 00 BIPOLAR DISORD, CRNT EPSD DEPRESS, MILD OR MOD SEVERT, UNSP Active 2023-11 00:00: 00 INSOMNIA, UNSPECIFIED Active 2023-11 00:00: 00 UNSPECIFIED AGE-RELATED CATARACT Active 2023-11 00:00: 00 GASTRO-ESOPH AGEAL REFLUX DISEASE WITHOUT ESOPHAGITIS Active 2023-11 00:00: 00 OBESITY, UNSPECIFIED Active 2023-11 00:00: 00 DIRECTOR SAFETY COUNCIL (CURRENT) USE OF INHALED STEROIDS Active 2023-11 00:00: 00 DEPENDENCE ON SUPPLEMENTAL OXYGEN Active 2023-11 00:00: 00 DEPENDENCE ON OTHER ENABLING MACHINES AND DEVICES Active 2023-11 00:00: 00 [facility] (CURRENT) USE OF SYSTEMIC STEROIDS Active 2023-11 00:00: 00 Patient's other noncompl with meds regimen for other reason Active 2023-11 00:00: 00 BODY MASS INDEX [BMI] 37.0-37.9, ADULT Active 2023-11 00:00: 00 DIRECTOR SAFETY COUNCIL (CURRENT) USE OF ANTICOAGULAN TS Active 2023-11 00:00: 00 Allergies, Adverse Reactions, Alerts Allergy Name Allergy Type Status Severity Reaction(s) Onset Date Inactive Date Treating Clinician Comments CODEINE Propensity to adverse reactions Active 2023-11 09:08: 26 FLUOXETINE Propensity to adverse reactions Active 2023-11 09:08: 34 HALOPERIDOL Propensity to adverse reactions Active 2023-11 09:08: 39 SULFA (SULFONAMIDE S) Propensity to adverse reactions Active 2023-11 09:08: 47 Medications Ordered Medication Name Filled Medication Name Start Date Stop Date Current Medication? Ordering Clinician Indication Dosage Frequency Signature (SIG) Comments Components Eliquis 5 mg tablet 2023-11 00:00: 00 Yes [id number] DVT PROPHYLAXIS 1 tablet 2 TIMES DAILY 1 tablet 2 TIMES DAILY (route: oral) Med Classific ation: Hematolog ical Agents lamotrigine 150 mg tablet 2023-11 00:00: 00 09-21 00:00 :00 No [id number] Per instruc tions Per instructio ns (route: oral) Med Classific ation: Central Nervous System Agents metoprolol succinate ER 100 mg tablet,exte nded release 24 hr 2023-11 00:00: 00 Yes [id number] HTN 1 tablet DAILY 1 tablet DAILY (route: oral) Med Classific ation: Cardiovas cular Therapy Agents alendronate 70 mg tablet 2023-11 00:00: 00 Yes [id number] OP 1 tablet WEEKLY 1 tablet WEEKLY (route: oral) Med Classific ation: Endocrine pantoprazol e 40 mg tablet,irving yed release 2023-11 00:00: 00 Yes [id number] GERD 1 tablet DAILY 1 tablet DAILY (route: oral) Med Classific ation: Gastroint estinal Therapy Agents vilazodone 40 mg tablet 2023-11 00:00: 00 Yes [id number] DEPRESSION 1 tablet DAILY 1 tablet DAILY (route: oral) Med Classific ation: Central Nervous System Agents aripiprazol e 10 mg tablet 2023-11 00:00: 00 Yes [id number] BIPOLAR 1 tablet DAILY 1 tablet DAILY (route: oral) Med Classific ation: Central Nervous System Agents gabapentin 100 mg capsule 2023-11 00:00: 00 Yes [id number] NEUROPATHY 1 capsule 3 TIMES DAILY 1 capsule 3 TIMES DAILY (route: oral) Med Classific ation: Central Nervous System Agents lamotrigine 200 mg tablet 2023-11 00:00: 00 09-21 00:00 :00 No [id number] Per instruc tions Per instructio ns (route: oral) Med Classific ation: Central Nervous System Agents mirtazapine 15 mg tablet 2023-11 00:00: 00 Yes [id number] DEPRESSION 1 tablet BEDTIME 1 tablet BEDTIME (route: oral) Med Classific ation: Central Nervous System Agents montelukast 10 mg tablet 2023-11 00:00: 00 Yes [id number] COPD 1 tablet BEDTIME 1 tablet BEDTIME (route: oral) Med Classific ation: Respirato ry Therapy Agents theophyllin e ER 200 mg tablet,exte nded release,12 hr 2023-1116 00:00: 00 Yes [id number] COPD 1 tablet 2 TIMES DAILY 1 tablet 2 TIMES DAILY (route: oral) Med Classific ation: Respirato ry Therapy Agents acetaminoph en 500 mg tablet 2023-11 0 00:00: 00 Yes [id number] PAIN 2 tablet EVERY 6 HOURS 2 tablet EVERY 6 HOURS (route: oral) Med Classific ation: Analgesic , Anti-infl ammatory or Antipyret ic albuterol sulfate 2.5 mg/3 mL (0.083 %) solution for nebulizatio n 2023-11 00:00: 00 Yes [id number] WHEEZING 3 mL EVERY 6 HOURS 3 mL EVERY 6 HOURS (route: inhalation ) Med Classific ation: Respirato ry Therapy Agents albuterol sulfate HFA 90 mcg/actuati on aerosol inhaler 2023-11 00:00: 00 Yes [id number] SOB 2 puff 4 TIMES DAILY 2 puff 4 TIMES DAILY (route: inhalation ) Med Classific ation: Respirato ry Therapy Agents Arnuity Ellipta 100 mcg/actuati on powder for inhalation 2023-11 00:00: 00 Yes [id number] COPD 1 inhalat ion DAILY 1 inhalation DAILY (route: inhalation ) Med Classific ation: Respirato ry Therapy Agents aspirin 81 mg tablet,irving yed release 2023-11 00:00: 00 Yes [id number] HEART HEALTH 1 tablet DAILY 1 tablet DAILY (route: oral) Med Classific ation: Hematolog ical Agents betamethaso ne dipropionat e 0.05 % topical ointment 2023-11 00:00: 00 Yes [id number] RASH Per instruc tions EVERY 12 HOURS Per instructio ns EVERY 12 HOURS (route: topical) Med Classific ation: Dermatolo gical cholecalcif espinoza (vitamin D3) 50 mcg (2,000 unit) capsule 2023-11 00:00: 00 Yes [id number] SUPPLEMENT 1 capsule DAILY 1 capsule DAILY (route: oral) Med Classific ation: Electroly te Balance-N utritiona l Products cyclobenzap rine 5 mg tablet 2023-11 00:00: 00 Yes [id number] SPASM 1 tablet EVERY 8 HOURS 1 tablet EVERY 8 HOURS (route: oral) Med Classific ation: Locomotor System diclofenac 3 % topical gel 2023-11 00:00: 00 Yes [id number] PAIN Per instruc tions DAILY Per instructio ns DAILY (route: topical) Med Classific ation: Dermatolo gical docusate sodium 100 mg capsule 2023-11 00:00: 00 Yes [id number] CONSTIPATIO N 1 capsule DAILY 1 capsule DAILY (route: oral) Med Classific ation: Gastroint estinal Therapy Agents fluocinolon e acetonide oil 0.01 % ear drops 2023-11 00:00: 00 Yes [id number] OTITIS EXTERNA 4 drops EVERY OTHER DAY 4 drops EVERY OTHER DAY (route: otic (ear)) Med Classific ation: Otic (Ear) fluticasone propionate 50 mcg/actuati on nasal spray,suspe nsion 2023-11 00:00: 00 Yes [id number] ALLERGIES 1 spray DAILY 1 spray DAILY (route: nasal) Med Classific ation: Respirato ry Therapy Agents furosemide 20 mg tablet 2023-11 00:00: 00 Yes [id number] EDEMA 1 tablet 2 TIMES DAILY 1 tablet 2 TIMES DAILY (route: oral) Med Classific ation: Cardiovas cular Therapy Agents lactulose 10 gram/15 mL (15 mL) oral solution 2023-11 00:00: 00 Yes [id number] CONSTIPATIO N 30 mL DAILY 30 mL DAILY (route: oral) Med Classific ation: Gastroint estinal Therapy Agents lamotrigine ER 300 mg tablet,exte nded release 24 hr 2023-11 00:00: 00 Yes [id number] BIPOLAR 1 tablet BEDTIME 1 tablet BEDTIME (route: oral) Med Classific ation: Central Nervous System Agents lurasidone 40 mg tablet 2023-11 00:00: 00 Yes [id number] BIPOLAR 1 tablet DAILY 1 tablet DAILY (route: oral) Med Classific ation: Central Nervous System Agents meloxicam 15 mg tablet 2023-11 00:00: 00 Yes [id number] OA 1 tablet DAILY 1 tablet DAILY (route: oral) Med Classific ation: Analgesic , Anti-infl ammatory or Antipyret ic prednisone 10 mg tablet 2023-11 00:00: 00 Yes [id number] COPD 1 tablet DAILY 1 tablet DAILY (route: oral) Med Classific ation: Endocrine Senna Lax 8.6 mg tablet 2023-11 00:00: 00 Yes [id number] CONSTIPATIO N 1 tablet DAILY 1 tablet DAILY (route: oral) Med Classific ation: Gastroint estinal Therapy Agents Serevent Diskus 50 mcg/dose powder for inhalation 2023-11 00:00: 00 Yes [id number] COPD 1 inhalat ion 2 TIMES DAILY 1 inhalation 2 TIMES DAILY (route: inhalation ) Med Classific ation: Respirato ry Therapy Agents oxygen gas for inhalation 2023-11 00:00: 00 Yes [id number] COPD Per instruc tions O2 - CONTINUOUS Per instructio ns O2 - CONTINUOUS (route: inhalation ) Med Classific ation: Medical Supplies and Durable Medical Equipment (DME) Vital Signs Vital Name Observation Time Observation Value Commen ts Temperature 2024-10-02 12:55:00.000 97.7 [degF] Temperature 2024-09-24 16:19:00.000 97.2 [degF] Temperature 2024-09-21 12:08:00.000 97.5 [degF] Temperature 2024-09-21 12:05:00.000 97.5 [degF] BMI (%) 2024-10-02 12:55:00.000 37 kg/m2 BMI (%) 2024-09-21 12:08:00.000 37 kg/m2 Height 2024-10-02 12:55:00.000 61 [in_us] Height 2024-09-21 12:08:00.000 60 [in_us] Height 2024-09-21 12:05:00.000 60 [in_us] Pulse 2024-10-02 12:55:00.000 72 /min Pulse 2024-09-24 15:46:00.000 69 /min Pulse 2024-09-21 12:08:00.000 76 /min Pulse 2024-09-21 12:05:00.000 76 /min O2 Saturation (%) 2024-10-02 12:55:00.000 92 % O2 Saturation (%) 2024-09-24 15:46:00.000 93 % O2 Saturation (%) 2024-09-21 12:05:00.000 88 % Respirations 2024-10-02 12:55:00.000 18 /min Respirations 2024-09-24 15:46:00.000 18 /min Respirations 2024-09-21 12:08:00.000 18 /min Respirations 2024-09-21 12:05:00.000 18 /min Weight (lbs) 2024-10-02 12:55:00.000 197 [lb_av] Weight (lbs) 2024-09-21 12:08:00.000 192 [lb_av] Weight (lbs) 2024-09-21 12:05:00.000 192 [lb_av] Systolic Blood Pressure 2024-10-02 12:55:00.000 140 mm [Hg] Systolic Blood Pressure 2024-09-21 12:08:00.000 128 mm [Hg] Systolic Blood Pressure 2024-09-21 12:05:00.000 128 mm [Hg] Diastolic Blood Pressure 2024-10-02 12:55:00.000 70 mm [Hg] Diastolic Blood Pressure 2024-09-21 12:08:00.000 70 mm [Hg] Diastolic Blood Pressure 2024-09-21 12:05:00.000 80 mm [Hg] Plan of Treatment Planned Activity Planned Date Details Comments Future Scheduled Test SPEECH THE RAPIST TO EVALUATE FOR BREATHING DIFFICULTIES. [code = SPEECH THERAPIST TO EVALUATE FOR BREATHING DIFFICULTIES.] Future Scheduled Test PT/TIMBER MANAGEMENT TECHNICIAN TO PROVIDE GAIT TRAINING FOR IMPROVED MOBILITY AND /OR TO NORMALIZE GAIT PATTERN [code = PT/TIMBER MANAGEMENT TECHNICIAN TO PROVIDE GAIT TRAINING FOR IMPROVED MOBILITY AND /OR TO NORMALIZE GAIT PATTERN] Future Scheduled Test THERAPEUTI C EXERCISES AND ESTABLISHING A HOME EXERCISE PROGRAM (PT/TIMBER MANAGEMENT TECHNICIAN) [code = THERAPEUTIC EXERCISES AND ESTABLISHING A HOME EXERCISE PROGRAM (PT/TIMBER MANAGEMENT TECHNICIAN)] Future Scheduled Test PT/TIMBER MANAGEMENT TECHNICIAN TO IDENTIFY FALL RISK FACTORS; EDUCATE THE PATIENT/CAREGIVER ON WAYS TO REDUCE FALL RISK FACTORS AND ESTABLISH HOME EXERCISE PROGRAM TO MINIMIZE FALL RISK. MAY TEACH THE PATIENT FLOOR RECOVERY WHEN CLINICALLY APPROPRIATE [code = PT/TIMBER MANAGEMENT TECHNICIAN TO IDENTIFY FALL RISK FACTORS; EDUCATE THE PATIENT/CAREGIVER ON WAYS TO REDUCE FALL RISK FACTORS AND ESTABLISH HOME EXERCISE PROGRAM TO MINIMIZE FALL RISK. MAY TEACH THE PATIENT FLOOR RECOVERY WHEN CLINICALLY APPROPRIATE] Future Scheduled Test CHAIR WEAVER SFERS (PT/TIMBER MANAGEMENT TECHNICIAN) [code = CHAIR TRANSFERS (PT/TIMBER MANAGEMENT TECHNICIAN)] Future Scheduled Test PT / TIMBER MANAGEMENT TECHNICIAN T O MONITOR AND EDUCATE ON OXYGEN SATURATION DURING ADLS/IADLS, NOTIFY PHYSICIAN AND/OR THE RN CLINICAL PULL OVER FOR PHYSICIAN NOTIFICATION AND IF O2 SATS BELOW PHYSICIAN ORDERED PARAMETERS AFTER 10 MIN OF REST [code = PT / TIMBER MANAGEMENT TECHNICIAN TO MONITOR AND EDUCATE ON OXYGEN SATURATION DURING ADLS/IADLS, NOTIFY PHYSICIAN AND/OR THE RN CLINICAL PULL OVER FOR PHYSICIAN NOTIFICATION AND IF O2 SATS BELOW PHYSICIAN ORDERED PARAMETERS AFTER 10 MIN OF REST] Future Scheduled Test PT / TIMBER MANAGEMENT TECHNICIAN T O EDUCATE PATIENT / CAREGIVER ON OXYGEN MANAGEMENT; OXYGEN FLOW RATE 3 L/MIN PT / TIMBER MANAGEMENT TECHNICIAN MAY TITRATE OXYGEN UP TO 6L/MIN TO MAINTAIN O2 SAT > PHYSICIAN ORDERED PARAMETERS DURING ACTIVITY VIA NASAL CANNULA OR MASK [code = PT / TIMBER MANAGEMENT TECHNICIAN TO EDUCATE PATIENT / CAREGIVER ON OXYGEN MANAGEMENT; OXYGEN FLOW RATE 3 L/MIN PT / TIMBER MANAGEMENT TECHNICIAN MAY TITRATE OXYGEN UP TO 6L/MIN TO MAINTAIN O2 SAT > PHYSICIAN ORDERED PARAMETERS DURING ACTIVITY VIA NASAL CANNULA OR MASK ] Future Scheduled Test PT / TIMBER MANAGEMENT TECHNICIAN M AY EDUCATE ON PAIN MANAGEMENT CLINICALLY INDICATED, INCLUDING NON-PHARMACOLOGICAL PAIN REDUCTION TECHNIQUES. [code = PT / TIMBER MANAGEMENT TECHNICIAN MAY EDUCATE ON PAIN MANAGEMENT CLINICALLY INDICATED, INCLUDING NON-PHARMACOLOGICAL PAIN REDUCTION TECHNIQUES.] Future Scheduled Test AGENCY MAY PERFORM A RESUMPTION OF CARE VISIT FOLLOWING ANY HOSPITAL ADMISSION. PT TO EVALUATE, OBSERVE / ASSESS, AND MONITOR, TIMBER MANAGEMENT TECHNICIAN TO OBSERVE AND MONITOR, PROVIDE SKILLED THERAPEUTIC INTERVENTION, ACTIVITY, EDUCATION, AND TRAINING TO ADDRESS; [code = AGENCY MAY PERFORM A RESUMPTION OF CARE VISIT FOLLOWING ANY HOSPITAL ADMISSION. PT TO EVALUATE, OBSERVE / ASSESS, AND MONITOR, TIMBER MANAGEMENT TECHNICIAN TO OBSERVE AND MONITOR, PROVIDE SKILLED THERAPEUTIC INTERVENTION, ACTIVITY, EDUCATION, AND TRAINING TO ADDRESS;] Future Scheduled Test NEUROMUSCU LAR RE-EDUCATION / BALANCE / POSTURAL CONTROL (PT) [code = NEUROMUSCULAR RE-EDUCATION / BALANCE / POSTURAL CONTROL (PT)] Future Scheduled Test PT / TIMBER MANAGEMENT TECHNICIAN T O EDUCATE ON HEART FAILURE SELF-MANAGEMENT [code = PT / TIMBER MANAGEMENT TECHNICIAN TO EDUCATE ON HEART FAILURE SELF-MANAGEMENT] Future Scheduled Test PT TO ASSE SS / TIMBER MANAGEMENT TECHNICIAN TO MONITOR FOR AND REPORT EARLY SIGNS OF ANTICOAGULANT TOXICITY TO THE PHYSICIAN AND/OR THE RN CLINICAL PULL OVER FOR PHYSICIAN NOTIFICATION AND TO PROVIDE PATIENT/CAREGIVER EDUCATION ON ANTICOAGULANT THERAPY [code = PT TO ASSESS / TIMBER MANAGEMENT TECHNICIAN TO MONITOR FOR AND REPORT EARLY SIGNS OF ANTICOAGULANT TOXICITY TO THE PHYSICIAN AND/OR THE RN CLINICAL PULL OVER FOR PHYSICIAN NOTIFICATION AND TO PROVIDE PATIENT/CAREGIVER EDUCATION ON ANTICOAGULANT THERAPY] Future Scheduled Test PT / TIMBER MANAGEMENT TECHNICIAN T O EDUCATE ON COPD SELF-MANAGEMENT [code = PT / TIMBER MANAGEMENT TECHNICIAN TO EDUCATE ON COPD SELF-MANAGEMENT] Future Scheduled Test AGENCY MAY PERFORM A RESUMPTION OF CARE VISIT FOLLOWING ANY HOSPITAL ADMISSION. OT TO EVALUATE, OBSERVE / ASSESS, AND MONITOR, CRYOGENIC TRANSPORT DRIVER TO OBSERVE AND MONITOR, PROVIDE SKILLED THERAPEUTIC INTERVENTION, ACTIVITY, EDUCATION, AND TRAINING TO ADDRESS; PERSONAL HYGIENE/GROOMING (OT/CRYOGENIC TRANSPORT DRIVER) DRESSING (OT/BENIGNO) ACTIVITIES OF DAILY LIVING (OT/CRYOGENIC TRANSPORT DRIVER) MEAL PREPARATION AND CLEANUP (OT/CRYOGENIC TRANSPORT DRIVER) LIGHT HOUSEKEEPING (OT/CRYOGENIC TRANSPORT DRIVER) TOILET TRANSFER (OT/BENIGNO) ENERGY CONSERVATION/ACTIVITY DEMAND (OT/CRYOGENIC TRANSPORT DRIVER) OT/CRYOGENIC TRANSPORT DRIVER TO MONITOR AND EDUCATE ON OXYGEN SATURATION DURING ADLS/IADLS, NOTIFY PHYSICIAN AND/OR THE RN CLINICAL PULL OVER FOR PHYSICIAN NOTIFICATION AND IF O2 SATS BELOW 90% AFTER 10 MIN OF REST. OT/BENIGNO TO EDUCATE PATIENT / CAREGIVER ON OXYGEN MANAGEMENT; OXYGEN FLOW RATE 3 L/MIN (CONTINUOUS ) MAY TITRATE OXYGEN UP TO 6 L/MIN TO MAINTAIN O2 SAT >90% DURING ACTIVITY VIA NASAL CANNULA OR OT / CRYOGENIC TRANSPORT DRIVER TO IDENTIFY FALL RISK FACTORS; EDUCATE THE PATIENT/CAREGIVER ON WAYS TO REDUCE FALL RISK FACTORS AND ESTABLISH HOME EXERCISE PROGRAM TO MINIMIZE FALL RISK. MAY TEACH THE PATIENT FLOOR RECOVERY WHEN CLINICALLY APPROPRIATE. OT/BENIGNO TO EDUCATE ON COPD SELF-MANAGEMENT [code = AGENCY MAY PERFORM A RESUMPTION OF CARE VISIT FOLLOWING ANY HOSPITAL ADMISSION. OT TO EVALUATE, OBSERVE / ASSESS, AND MONITOR, CRYOGENIC TRANSPORT DRIVER TO OBSERVE AND MONITOR, PROVIDE SKILLED THERAPEUTIC INTERVENTION, ACTIVITY, EDUCATION, AND TRAINING TO ADDRESS; PERSONAL HYGIENE/GROOMING (OT/BENIGNO) DRESSING (OT/BENIGNO) ACTIVITIES OF DAILY LIVING (OT/BENGINO) MEAL PREPARATION AND CLEANUP (OT/BENIGNO) LIGHT HOUSEKEEPING (OT/CRYOGENIC TRANSPORT DRIVER) TOILET TRANSFER (OT/BENIGNO) ENERGY CONSERVATION/ACTIVITY DEMAND (OT/CRYOGENIC TRANSPORT DRIVER) OT/CRYOGENIC TRANSPORT DRIVER TO MONITOR AND EDUCATE ON OXYGEN SATURATION DURING ADLS/IADLS, NOTIFY PHYSICIAN AND/OR THE RN CLINICAL PULL OVER FOR PHYSICIAN NOTIFICATION AND IF O2 SATS BELOW 90% AFTER 10 MIN OF REST. OT/BENIGNO TO EDUCATE PATIENT / CAREGIVER ON OXYGEN MANAGEMENT; OXYGEN FLOW RATE 3 L/MIN (CONTINUOUS ) MAY TITRATE OXYGEN UP TO 6 L/MIN TO MAINTAIN O2 SAT >90% DURING ACTIVITY VIA NASAL CANNULA OR OT / BENIGNO TO IDENTIFY FALL RISK FACTORS; EDUCATE THE PATIENT/CAREGIVER ON WAYS TO REDUCE FALL RISK FACTORS AND ESTABLISH HOME EXERCISE PROGRAM TO MINIMIZE FALL RISK. MAY TEACH THE PATIENT FLOOR RECOVERY WHEN CLINICALLY APPROPRIATE. OT/BENIGNO TO EDUCATE ON COPD SELF-MANAGEMENT] Goal Patient Goal - GET STRONGER Goal 2024-10-02 Patient Goal - GET STRONGER Goal Provider Goal - Goal Provider Goal - PT LTG: PATIENT WILL DEMONSTRATE IMPROVED AMBULATION FROM SBA TO INDEPENDENT WITHIN 9 WEEKS PT LTG: PATIENT WILL DEMONSTRATE REDUCED FALL RISK EVIDENCED BY IMPROVED SELF- SELECTED WALKING SPEED (SSWS CUT SCORE 0.6 TO 0.9 INDICATES MODERATE FALL RISK, 0.6 M/S INDICATES HIGH FALL RISK) FROM 0.7 TO 1.0 WITHIN 9 WEEKS. PT LTG: PATIENT WILL DEMONSTRATE REDUCED FALL RISK EVIDENCED BY TUG TEST (CUT SCORE >11 SECONDS INDICATES INCREASED FALL RISK) IMPROVING FROM 15 TO 11 WITHIN 9 WEEKS. PT LTG: PATIENT WILL DEMONSTRATE INCREASED STRENGTH OF BILAT LES FROM 4-/5 TO 4/5 WITHIN 9 WEEKS IN ORDER TO RETURN TO INDEPENDENT TRANSFER AND AMBULATION SKILLS. PT STG: PATIENT WILL DEMONSTRATE IMPROVED ABILITY TO PERFORM CHAIR TRANSFERS TO REDUCE THE RISK OF SKIN BREAKDOWN AND FALL RISK FROM SBA TO INDEPENDENT WITHIN 4 WEEKS. Goal Provider Goal - PT LTG: PATIENT/CAREGIVER WILL DEMONSTRATE ADHERENCE TO FALL REDUCTION SELF-MANAGEMENT AND REDUCING FALL RISK FACTORS TO MINIMIZE FALL RISK BY END OF EPISODE. PT LTG: PATIENT WILL BE INDEPENDENT WITH IMPLEMENTATION OF HEP WITHIN 5 WEEKS. Goal Provider Goal - PT LTG: PATIENT WILL MAINTAIN OXYGEN SATURATION WITHIN PHYSICIAN ORDERED PARAMETERS THROUGHOUT EPISODE OF CARE. Goal Provider Goal - PT GOAL: PATIENT/CAREGIVER WILL DEMONSTRATE UNDERSTANDING OF OXYGEN SAFETY, CARE, AND MANAGEMENT BY END OF EPISODE AND PATIENT WILL MAINTAIN SAFE OXYGEN LEVELS DURING ACTIVITY Goal Provider Goal - PT GOAL: PATIENT WILL DEMONSTRATE UNDERSTANDING OF PAIN MANAGEMENT TECHNIQUES BY END OF EPISODE. Goal Provider Goal - PT LTG: PATIENT/CAREGIVER WILL BE ABLE TO IDENTIFY SIGNS OF EXACERBATION OF HEART FAILURE AND VERBALIZE / DEMONSTRATE HOW TO MANAGE SYMPTOMS AND HOW TO ADHERE TO HEART FAILURE SELF-MANAGEMENT AND LIFE-STYLE CHANGES BY END OF EPISODE. Goal Provider Goal - PT LTG: PATIENT WILL NOT EXHIBIT SIGNS AND SYMPTOMS OF ANTICOAGULANT TOXICITY THROUGHOUT EPISODE OF CARE. Goal Provider Goal - PT GOAL: THE PATIENT / CAREGIVER WILL DEMONSTRATE ADHERENCE TO COPD SELF-MANAGEMENT BY END OF EPISODE. Goal Provider Goal - OT LTG: PATIENT WILL DEMONSTRATE IMPROVED ABILITY TO PERFORM GROOMING FROM MIN A TO MODIFIED INDEPENDENCE WITHIN 5 WEEKS. OT LTG: PATIENT WILL DEMONSTRATE IMPROVED ABILITY TO PERFORM LOWER BODY DRESSING TO REDUCE CAREGIVER BURDEN FROM MOD A TO MODIFIED INDEPENDENCE UTILIZING ADAPTIVE EQUIPMENT AND ENERGY CONSERVATION TECHNIQUES WITHIN 5 WEEKS OT LTG: PATIENT WILL DEMONSTRATE IMPROVEMENT IN MODIFIED NAVEEN INDEX SCORE FROM 53/100 TO 70/100 INDICATING DECREASED DEPENDENCY ON CAREGIVER ASSISTANCE WITH ACTIVITIES OF DAILY LIVING WITHIN 5 WEEKS. OT LTG: PATIENT WILL DEMONSTRATE THE ABILITY TO COMPLETE SNACK AND BEVERAGE PREPARATION AND CLEANUP TO REDUCE CAREGIVER BURDEN FROM MOD A TO MODIFIED INDEPENDENCE WITHIN 5 WEEKS. OT LTG: PATIENT WILL DEMONSTRATE THE ABILITY TO COMPLETE LIGHT HOUSEKEEPING FOR IMPROVED QUALITY OF LIFE FROM DEPENDENCY TO MODIFIED INDEPENDENCE WITH DISH WASHING AND BED MAKING WITHIN 5 WEEKS. OT LTG: PATIENT WILL DEMONSTRATE IMPROVED ABILITY TO PERFORM TOILET TRANSFERS TO REDUCE FALL RISK AND RISK OF INCONTINENCE AND UTI DEVELOPMENT FROM MOD A TO MODIFIED INDEPENDENCE WITH SAFE MANAGEMENT OF O2 CORD AND EDUCATION ON PURSED LIP BREATHING TECHNIQUE TO KEEP SPO2 ABOVE 90 % WITHIN 5 WEEKS. OT LTG: PATIENT WILL MAINTAIN OXYGEN SATURATION WITHIN PHYSICIAN ORDERED PARAMETERS THROUGHOUT THE EPISODE OF CARE. OT LTG: PATIENT/CAREGIVER WILL DEMONSTRATE UNDERSTANDING OF OXYGEN SAFETY, CARE, AND MANAGEMENT AND PATIENT/CAREGIVER WILL INDEPENDENTLY TITRATE OXYGEN WITHIN PHYSICIAN ORDERED PARAMETERS TO MAINTAIN SAFE OXYGEN LEVELS DURING ACTIVITY BY END OF EPISODE. OT LTG: PATIENT/CAREGIVER WILL BE ABLE TO IMPLEMENT RECOMMENDATIONS SPECIFIC TO FALL REDUCTION FOR IMPROVED ADL/IADL COMPLETION AND HOME SAFETY BY END OF EPISODE. OT GOAL: THE PATIENT / CAREGIVER WILL DEMONSTRATE ADHERENCE TO COPD SELF-MANAGEMENT BY END OF EPISODE Encounters Start Date/Time End Date/Time Encounter Type Admission Type Attending Clinicians Care Facility Care Department Encounter ID Discharge Date Discharge Status Discharge Condition Discharge Reason Percent Goals Met 2024-09-21 00:00:00 2024-11-19 00:00:00 Outpatient NEW ADMISSION MICHAEL SCHULTE [facility] [id number]
--- OUTSIDE RECORDS SUMMARY | 2024-11-15 14:51 | XMS_ITS | Clinical Summary ---
Author Organization Unknown Care Team Providers Care Screen Cleaner Name Role Phone LUCILA ARRINGTON, EDMOND Unavailable Unavailable ERIS PT, MICHAEL Unavailable Unavailable BYRNES AGENCY MANAGER, CHI Unavailable Unavailable [place], TAMMIE Unavailable Unavailable CONDINO BENIGNO/SOLIS, MARIAMA Unavailable Unav ailable [facility], KELLY Unavailable Unavailable MARGOTH RYAN, CHANDRAKANT Unavailable Unavailable RYAN PASTOR, GENTRY Unavailable Unavailabl e Payers Payer Name Policy Type Policy Number Effective Date Expira tion Date MEDICARE.[email or web address] [id number] Problems Condition Name Condition Details Condition Category [...] 00 OBESITY, UNSPECIFIED Active 2023-11 00:00: 00 [employer]TER (CURRENT) USE OF INHALED STEROIDS Active 2023-11 00:00: 00 DEPENDENCE ON SUPPLEMENTAL OXYGEN Active 2023-11 00:00: 00 DEPENDENCE ON OTHER ENABLING MACHINES AND DEVICES Active 2023-11 00:00: 00 RETIREMENT (CURRENT) USE OF SYSTEMIC STEROIDS Active 2023-11 00:00: 00 Patient's other noncompl with meds regimen for other reason Active 2023-11 00:00: 00 BODY MASS INDEX [BMI] 37.0-37.9, ADULT Active 2023-11 00:00: 00 FREIGHT [employer] BRA[employer]TER (CURRENT) USE OF ANTICOAGULAN TS Active 2023-11 [...] 5 mg tablet 2023-11 00:00: 00 Yes [id number] DVT PROPHYLAXIS 1 tablet 2 TIMES DAILY 1 tablet 2 TIMES DAILY (route: oral) Med Classific ation: Hematolog ical Agents lamotrigine 150 mg tablet 2023-11 00:00: 00 09-21 00:00 :00 No [id number] Per instruc tions Per instructio ns (route: oral) Med Classific ation: Central Nervous System Agents metoprolol succinate ER 100 mg tablet,exte nded release 24 hr 2023-11 00:00: 00 Yes [id number] HTN 1 tablet DAILY 1 tablet DAILY (route: oral) Med Classific ation: Cardiovas cular Therapy Agents alendronate 70 mg tablet 2023-11 00:00: 00 Yes [id number] OP 1 tablet WEEKLY 1 tablet WEEKLY (route: oral) Med Classific ation: Endocrine pantoprazol e 40 mg tablet,irving yed release 2023-11 00:00: 00 Yes [id number] GERD 1 tablet DAILY 1 tablet DAILY (route: oral) Med Classific ation: Gastroint estinal Therapy Agents vilazodone 40 mg tablet 2023-11 00:00: 00 Yes [id number] DEPRESSION 1 tablet DAILY 1 tablet DAILY (route: oral) Med Classific ation: Central Nervous System Agents aripiprazol e 10 mg tablet 2023-11 00:00: 00 Yes [id number] BIPOLAR 1 tablet DAILY 1 tablet DAILY (route: oral) Med Classific ation: Central Nervous System Agents gabapentin 100 mg capsule 2023-11 00:00: 00 Yes [id number] NEUROPATHY 1 capsule 3 TIMES DAILY 1 capsule 3 TIMES DAILY (route: oral) Med Classific ation: Central Nervous System Agents lamotrigine 200 mg tablet 2023-11 00:00: 00 09-21 00:00 :00 No [id number] Per instruc tions Per instructio ns (route: oral) Med Classific ation: Central Nervous System Agents mirtazapine 15 mg tablet 2023-11 00:00: 00 Yes [id number] DEPRESSION 1 tablet BEDTIME 1 tablet BEDTIME (route: oral) Med Classific ation: Central Nervous System Agents montelukast 10 mg tablet 2023-11 00:00: 00 Yes [id number] COPD 1 tablet BEDTIME 1 tablet BEDTIME (route: oral) Med Classific ation: Respirato ry Therapy Agents theophyllin e ER 200 mg tablet,exte nded release,12 hr 2023-1116 00:00: 00 Yes [id number] COPD 1 tablet 2 TIMES DAILY 1 tablet 2 TIMES DAILY (route: oral) Med Classific ation: Respirato ry Therapy Agents acetaminoph en 500 mg tablet 2023-11 0 00:00: 00 Yes [id number] PAIN 2 tablet EVERY 6 HOURS 2 tablet EVERY 6 HOURS (route: oral) Med Classific ation: Analgesic , Anti-infl ammatory or Antipyret ic albuterol sulfate 2.5 mg/3 mL (0.083 %) solution for nebulizatio n 2023-11 00:00: 00 Yes [id number] WHEEZING 3 mL EVERY 6 HOURS 3 mL EVERY 6 HOURS (route: inhalation ) Med Classific ation: Respirato ry Therapy Agents albuterol sulfate HFA 90 mcg/actuati on aerosol inhaler 2023-11 00:00: 00 Yes [id number] SOB 2 puff 4 TIMES DAILY 2 puff 4 TIMES DAILY (route: inhalation ) Med Classific ation: Respirato ry Therapy Agents Arnuity Ellipta 100 mcg/actuati on powder for inhalation 2023-11 00:00: 00 Yes [id number] COPD 1 inhalat ion DAILY 1 inhalation DAILY (route: inhalation ) Med Classific ation: Respirato ry Therapy Agents aspirin 81 mg tablet,irving yed release 2023-11 00:00: 00 Yes [id number] HEART HEALTH 1 tablet DAILY 1 tablet DAILY (route: oral) Med Classific ation: Hematolog ical Agents betamethaso ne dipropionat e 0.05 % topical ointment 2023-11 00:00: 00 Yes [id number] RASH Per instruc tions EVERY 12 HOURS Per instructio ns EVERY 12 HOURS (route: topical) Med Classific ation: Dermatolo gical cholecalcif espinoza (vitamin D3) 50 mcg (2,000 unit) capsule 2023-11 00:00: 00 Yes [id number] SUPPLEMENT 1 capsule DAILY 1 capsule DAILY (route: oral) Med Classific ation: Electroly te Balance-N utritiona l Products cyclobenzap rine 5 mg tablet 2023-11 00:00: 00 Yes [id number] MM SPASM 1 tablet EVERY 8 HOURS 1 tablet EVERY 8 HOURS (route: oral) Med Classific ation: Locomotor System diclofenac 3 % topical gel 2023-11 00:00: 00 Yes [id number] PAIN Per instruc tions DAILY Per instructio ns DAILY (route: topical) Med Classific ation: Dermatolo gical docusate sodium 100 mg capsule 2023-11 00:00: 00 Yes [id number] CONSTIPATIO N 1 capsule DAILY 1 capsule DAILY (route: oral) Med Classific ation: Gastroint estinal Therapy Agents fluocinolon e acetonide oil 0.01 % ear drops 2023-11 00:00: 00 Yes [id number] OTITIS EXTERNA 4 drops EVERY OTHER DAY 4 drops EVERY OTHER DAY (route: otic (ear)) Med Classific ation: Otic (Ear) fluticasone propionate 50 mcg/actuati on nasal spray,suspe nsion 2023-11 00:00: 00 Yes [id number] ALLERGIES 1 spray DAILY 1 spray DAILY (route: nasal) Med Classific ation: Respirato ry Therapy Agents furosemide 20 mg tablet 2023-11 00:00: 00 Yes [id number] EDEMA 1 tablet 2 TIMES DAILY 1 tablet 2 TIMES DAILY (route: oral) Med Classific ation: Cardiovas cular Therapy Agents lactulose 10 gram/15 mL (15 mL) oral solution 2023-11 00:00: 00 Yes [id number] CONSTIPATIO N 30 mL DAILY 30 mL DAILY (route: oral) Med Classific ation: Gastroint estinal Therapy Agents lamotrigine ER 300 mg tablet,exte nded release 24 hr 2023-11 00:00: 00 Yes [id number] BIPOLAR 1 tablet BEDTIME 1 tablet BEDTIME (route: oral) Med Classific ation: Central Nervous System Agents lurasidone 40 mg tablet 2023-11 00:00: 00 Yes [id number] BIPOLAR 1 tablet DAILY 1 tablet DAILY (route: oral) Med Classific ation: Central Nervous System Agents meloxicam 15 mg tablet 2023-11 00:00: 00 Yes [id number] OA 1 tablet DAILY 1 tablet DAILY (route: oral) Med Classific ation: Analgesic , Anti-infl ammatory or Antipyret ic prednisone 10 mg tablet 2023-11 00:00: 00 Yes [id number] COPD 1 tablet DAILY 1 tablet DAILY (route: oral) Med Classific ation: Endocrine Senna Lax 8.6 mg tablet 2023-11 00:00: 00 Yes [id number] CONSTIPATIO N 1 tablet DAILY 1 tablet DAILY (route: oral) Med Classific ation: Gastroint estinal Therapy Agents Serevent Diskus 50 mcg/dose powder for inhalation 2023-11 00:00: 00 Yes [id number] COPD 1 inhalat ion 2 TIMES DAILY 1 inhalation 2 TIMES DAILY (route: inhalation ) Med Classific ation: Respirato ry Therapy Agents oxygen gas for inhalation 2023-11 00:00: 00 Yes [id number] COPD Per instruc tions O2 - CONTINUOUS [...] EVALUATE FOR BREATHING DIFFICULTIES.] Future Scheduled Test PT/AGENCY MANAGER TO PROVIDE GAIT TRAINING FOR IMPROVED MOBILITY AND /OR TO NORMALIZE GAIT PATTERN [code = PT/AGENCY MANAGER TO PROVIDE GAIT TRAINING FOR IMPROVED MOBILITY AND /OR TO NORMALIZE GAIT PATTERN] Future Scheduled Test THERAPEUTI C EXERCISES AND ESTABLISHING A HOME EXERCISE PROGRAM (PT/AGENCY MANAGER) [code = THERAPEUTIC EXERCISES AND ESTABLISHING A HOME EXERCISE PROGRAM (PT/AGENCY MANAGER)] Future Scheduled Test PT/AGENCY MANAGER TO IDENTIFY FALL RISK FACTORS; EDUCATE THE PATIENT/CAREGIVER ON WAYS TO REDUCE FALL RISK FACTORS AND ESTABLISH HOME EXERCISE PROGRAM TO MINIMIZE FALL RISK. MAY TEACH THE PATIENT FLOOR RECOVERY WHEN CLINICALLY APPROPRIATE [code = PT/AGENCY MANAGER TO IDENTIFY FALL RISK FACTORS; EDUCATE THE PATIENT/CAREGIVER ON WAYS TO REDUCE FALL RISK FACTORS AND ESTABLISH HOME EXERCISE PROGRAM TO MINIMIZE FALL RISK. MAY TEACH THE PATIENT FLOOR RECOVERY WHEN CLINICALLY APPROPRIATE] Future Scheduled Test CHAIR WEAVER SFERS (PT/AGENCY MANAGER) [code = CHAIR TRANSFERS (PT/AGENCY MANAGER)] Future Scheduled Test PT / AGENCY MANAGER T O MONITOR AND EDUCATE ON OXYGEN SATURATION DURING ADLS/IADLS, NOTIFY PHYSICIAN AND/OR THE RN CLINICAL PERSONNEL INTERVIEWER FOR PHYSICIAN NOTIFICATION AND IF O2 SATS BELOW PHYSICIAN ORDERED PARAMETERS AFTER 10 MIN OF REST [code = PT / AGENCY MANAGER TO MONITOR AND EDUCATE ON OXYGEN SATURATION DURING ADLS/IADLS, NOTIFY PHYSICIAN AND/OR THE RN CLINICAL PERSONNEL INTERVIEWER FOR PHYSICIAN NOTIFICATION AND IF O2 SATS BELOW PHYSICIAN ORDERED PARAMETERS AFTER 10 MIN OF REST] Future Scheduled Test PT / AGENCY MANAGER T O EDUCATE PATIENT / CAREGIVER ON OXYGEN MANAGEMENT; OXYGEN FLOW RATE 3 L/MIN PT / AGENCY MANAGER MAY TITRATE OXYGEN UP TO 6L/MIN TO MAINTAIN O2 SAT > PHYSICIAN ORDERED PARAMETERS DURING ACTIVITY VIA NASAL CANNULA OR MASK [code = PT / AGENCY MANAGER TO EDUCATE PATIENT / CAREGIVER ON OXYGEN MANAGEMENT; OXYGEN FLOW RATE 3 L/MIN PT / AGENCY MANAGER MAY TITRATE OXYGEN UP TO 6L/MIN TO MAINTAIN O2 SAT > PHYSICIAN ORDERED PARAMETERS DURING ACTIVITY VIA NASAL CANNULA OR MASK ] Future Scheduled Test PT / AGENCY MANAGER M AY EDUCATE ON PAIN MANAGEMENT CLINICALLY INDICATED, INCLUDING NON-PHARMACOLOGICAL PAIN REDUCTION TECHNIQUES. [code = PT / AGENCY MANAGER MAY EDUCATE ON PAIN MANAGEMENT CLINICALLY INDICATED, INCLUDING NON-PHARMACOLOGICAL PAIN REDUCTION TECHNIQUES.] Future Scheduled Test AGENCY MAY PERFORM A RESUMPTION OF CARE VISIT FOLLOWING ANY HOSPITAL ADMISSION. PT TO EVALUATE, OBSERVE / ASSESS, AND MONITOR, AGENCY MANAGER TO OBSERVE AND MONITOR, PROVIDE SKILLED THERAPEUTIC INTERVENTION, ACTIVITY, EDUCATION, AND TRAINING TO ADDRESS; [code = AGENCY MAY PERFORM A RESUMPTION OF CARE VISIT FOLLOWING ANY HOSPITAL ADMISSION. PT TO EVALUATE, OBSERVE / ASSESS, AND MONITOR, AGENCY MANAGER TO OBSERVE AND MONITOR, PROVIDE SKILLED THERAPEUTIC INTERVENTION, ACTIVITY, EDUCATION, AND TRAINING TO ADDRESS;] Future Scheduled Test NEUROMUSCU LAR RE-EDUCATION / BALANCE / POSTURAL CONTROL (PT) [code = NEUROMUSCULAR RE-EDUCATION / BALANCE / POSTURAL CONTROL (PT)] Future Scheduled Test PT / AGENCY MANAGER T O EDUCATE ON HEART FAILURE SELF-MANAGEMENT [code = PT / AGENCY MANAGER TO EDUCATE ON HEART FAILURE SELF-MANAGEMENT] Future Scheduled Test PT TO ASSE SS / AGENCY MANAGER TO MONITOR FOR AND REPORT EARLY SIGNS OF ANTICOAGULANT TOXICITY TO THE PHYSICIAN AND/OR THE RN CLINICAL PERSONNEL INTERVIEWER FOR PHYSICIAN NOTIFICATION AND TO PROVIDE PATIENT/CAREGIVER EDUCATION ON ANTICOAGULANT THERAPY [code = PT TO ASSESS / AGENCY MANAGER TO MONITOR FOR AND REPORT EARLY SIGNS OF ANTICOAGULANT TOXICITY TO THE PHYSICIAN AND/OR THE RN CLINICAL PERSONNEL INTERVIEWER FOR PHYSICIAN NOTIFICATION AND TO PROVIDE PATIENT/CAREGIVER EDUCATION ON ANTICOAGULANT THERAPY] Future Scheduled Test PT / AGENCY MANAGER T O EDUCATE ON COPD SELF-MANAGEMENT [code = PT / AGENCY MANAGER TO EDUCATE ON COPD SELF-MANAGEMENT] Future Scheduled Test AGENCY MAY PERFORM A RESUMPTION OF CARE VISIT FOLLOWING ANY HOSPITAL ADMISSION. OT TO EVALUATE, OBSERVE / ASSESS, AND MONITOR, DEMOGRAPHER TO OBSERVE AND MONITOR, PROVIDE SKILLED THERAPEUTIC INTERVENTION, ACTIVITY, EDUCATION, AND TRAINING TO ADDRESS; PERSONAL HYGIENE/GROOMING (OT/DEMOGRAPHER) DRESSING (OT/BENIGNO) ACTIVITIES OF DAILY LIVING (OT/DEMOGRAPHER) MEAL PREPARATION AND CLEANUP (OT/DEMOGRAPHER) LIGHT HOUSEKEEPING (OT/DEMOGRAPHER) TOILET TRANSFER (OT/BENIGNO) ENERGY CONSERVATION/ACTIVITY DEMAND (OT/DEMOGRAPHER) OT/DEMOGRAPHER TO MONITOR AND EDUCATE ON OXYGEN SATURATION DURING ADLS/IADLS, NOTIFY PHYSICIAN AND/OR THE RN CLINICAL PERSONNEL INTERVIEWER FOR PHYSICIAN NOTIFICATION AND IF O2 SATS BELOW 90% AFTER 10 MIN OF REST. OT/BENIGNO TO EDUCATE PATIENT / CAREGIVER ON OXYGEN MANAGEMENT; OXYGEN FLOW RATE 3 L/MIN (CONTINUOUS ) MAY TITRATE OXYGEN UP TO 6 L/MIN TO MAINTAIN O2 SAT >90% DURING ACTIVITY VIA NASAL CANNULA OR OT / DEMOGRAPHER TO IDENTIFY FALL RISK FACTORS; EDUCATE THE PATIENT/CAREGIVER ON WAYS TO REDUCE FALL RISK FACTORS AND ESTABLISH HOME EXERCISE PROGRAM TO MINIMIZE FALL RISK. MAY TEACH THE PATIENT FLOOR RECOVERY WHEN CLINICALLY APPROPRIATE. OT/BENIGNO TO EDUCATE ON COPD SELF-MANAGEMENT [code = AGENCY MAY PERFORM A RESUMPTION OF CARE VISIT FOLLOWING ANY HOSPITAL ADMISSION. OT TO EVALUATE, OBSERVE / ASSESS, AND MONITOR, DEMOGRAPHER TO OBSERVE AND MONITOR, PROVIDE SKILLED THERAPEUTIC INTERVENTION, ACTIVITY, EDUCATION, AND TRAINING TO ADDRESS; PERSONAL HYGIENE/GROOMING (OT/BENIGNO) DRESSING (OT/BENIGNO) ACTIVITIES OF DAILY LIVING (OT/BENIGNO) MEAL PREPARATION AND CLEANUP (OT/BENIGNO) LIGHT HOUSEKEEPING (OT/DEMOGRAPHER) TOILET TRANSFER (OT/BENIGNO) ENERGY CONSERVATION/ACTIVITY DEMAND (OT/DEMOGRAPHER) OT/DEMOGRAPHER TO MONITOR AND EDUCATE ON OXYGEN SATURATION DURING ADLS/IADLS, NOTIFY PHYSICIAN AND/OR THE RN CLINICAL PERSONNEL INTERVIEWER FOR PHYSICIAN NOTIFICATION AND IF O2 SATS [...] 00:00:00 Outpatient NEW ADMISSION MICHAEL SCHULTE [facility] [id number]
[2024-11-15 15:08] LABS: Venous Blood Gas Refer to POC result
[2024-11-15 15:10] LABS: VBG Base Excess 22.2 mmol/L; VBG HCO3 51 mmol/L (22-26); VBG pCO2 88 mmHg; VBG pH 7.37 (7.32-7.43); VBG pO2 59 mmHg
[2024-11-15 15:12] LABS: MANUAL DIFF FLAG NO
[2024-11-15 15:42] LABS: Basophils Absolute Auto 0.1 X10*3/uL (0.0-0.2); Basophils Percent Auto 0.8 % (0-2); Eosinophils Absolute Auto 0.1 X10*3/uL (0.0-0.4); Hematocrit 31.4 % (37.0-47.0); Hemoglobin 9.3 g/dl (12.0-16.0); Imm Gran Abs Auto 0.05 X10*3/uL (0.00-0.03); Imm Gran Pct Auto 0.7 % (0.0-0.4); Lymphocytes Absolute Auto 0.4 X10*3/uL (1.2-4.9); Lymphocytes Percent Auto 5.9 % (20-40); Mean Corpuscular HGB Conc 29.6 g/dl (31.0-35.0); Mean Corpuscular Hemoglobin 26.6 pg (27.0-33.0); Mean Corpuscular Volume 89.7 fL (80.0-98.0); Mean Platelet Volume 9.5 fL (9.4-12.3); Monocytes Absolute Auto 0.5 X10*3/uL (0.1-1.2); Monocytes Percent Auto 6.7 % (2-11); Neutrophils Absolute Auto 6.2 x10*3/uL (2.0-8.3); Neutrophils Percent Auto 84.9 % (45-73); Platelet Count 472 X10*3/uL (160-400); Red Cell Distribution Width 14.8 % (11.0-16.0); White Blood Count 7.3 X10*3/uL (4.8-10.8)
[2024-11-15 16:18] LABS: Erythrocyte Sedimentation Rate 30 MM/HR (0-20)
[2024-11-15 16:42] LABS: Alanine Aminotransferase 12 U/L (0-31); Albumin Level 4.2 g/dL (3.5-5.0); Alkaline Phosphatase 66 U/L (39-117); Aspartate Amino Transferase 23 U/L (5-31); Bilirubin Direct < 0.2 mg/dL (0.0-0.5); Bilirubin Total 0.2 mg/dL (0.0-1.0); Total Protein 7.1 g/dL (6.5-8.0)
[2024-11-19 22:58] LABS: Aspergillus Antigen Not Detected (Not Detected); Index Value 0.04 (<0.50)
== END 2024-11-15 14:04 | disposition home or self-care (01) ==
LOC: HO.LAB 14:03
PROVIDERS: PCP Student in an Organized Health Care Education/Training Program; Visit Provider Hospitalist
DX: R91.1 Solitary pulmonary nodule (principal); J43.2 Centrilobular emphysema; J96.11 Chronic respiratory failure with hypoxia; J96.12 Chronic respiratory failure with hypercapnia; F51.01 Primary insomnia; G47.33 Obstructive sleep apnea (adult) (pediatric)
CPT/HCPCS: 36415; 80076; 82803; 85025; 85652; 87305; 99212

== ENCOUNTER 2024-11-15 14:03 | Outpatient (AMB) | payer MEDICARE, MEDICAID, SELFPAY ==
--- OUTSIDE RECORDS SUMMARY | 2024-11-15 14:05 | XMS_ITS | Data Portability ---
Author Organization [facility], Main Office Address [address] [place] [address] Care Team Providers Care Home Restoration Service Supervisor Name Role Phone [facility] OTHER Assessment No assessment recorded. Plan of Treatment Reminders Order Date Submit Date Provider Last Modified By Organization Details Last Modified Time Details Appointments None record ed. Lab None record ed. Referral None record ed. Procedures None record ed. Surgeries None record ed. Imaging None record ed. Medication Orders None record ed. Patient TargetsNo targets recorded. Patient InstructionsNo instructions recorded. Reason for Referral None Reported. Results Created Date Observation Date Name Description Value Unit Range Abnormal Flag Note LastModifiedBy Organization Detail LastModifiedTime Result Notes None recorded. Problems Name Problem SNOMED Code Status Onset Date Resolution Date Notes Provider Name and Address Organization Details Recorded Time Chronic obstructive pulmonary disease 20631011 Active Mohsen jimenes MD [address] [facility], [address], [place], [address], [facility] 5 17:45:58 Depressive disorder 41023839 BLAS Zaldivar [address] [facility], [address], [place], [address], [facility] 5 10:21:22 Acute exacerbation of chronic obstructive pulmonary disease 097003346 Active Mohsen jimenes MD [address] [facility], [address], [place], [address], [facility] [employer] 5 17:45:58 Gastroesophage al reflux disease 790728391 BLAS Zaldivar [address] [facility], [address], [place], [address], [facility] 5 10:33:02 Bipolar disorder 81263561 Active Mohsen jimenes MD [address] [facility], [address], [place], [address], [facility] 5 17:45:58 Insomnia 472038147 Active BLAS Rollins [address] [facility], [address], [place], [address], [facility] 5 10:33:02 Tachycardia 0698250 Active Mohsen jimenes MD [address] [facility], [address], [place], [address], [facility] 5 17:45:58 Problem Notes None recorded. Medical Equipment None Reported. Allergies Allergen ID Allergen Name Allergen Category Reaction Reaction Severity Criticality Documentation Date Start Date Code Code System Note Provider Name and Address Organization Details Recorded Time [id number] 3582947k5 2824e Haldol medicatio n Not available Not available Not available 09/01/2015 67313 9 RxNorm Not Available Not Available Not Available [id number] 8132675p7 2824e codeine medicatio n Not available Not available Not available 09/01/2015 2670 RxNorm Not Available Not Available Not Available [id number] 153135040 1559828j4 2824e Substance with sulfonami de structure and antibacte rial mechanism of action (substanc e) medicatio n Not available Not available Not available 09/01/2015 94982 8003 SNOMED Not Available Not Available Not Available Vitals None Recorded Social History Question Answer Notes LastModified by Organizat ion Details LastModified Time Tobacco Smoking Status Current Every Day Smoker Not Available [facility] 09/23/2020 03:13:02 How Many Years Have You Smoked Tobacco? 50 [id number] Information not available 09/23/2020 Sex: Unknown Functional Status None recorded. Mental Status None recorded. Family History Nothing Reported Notes:COPD and her sister, s on with gastric cancer Medical History Condition Response Anxiety Disorder Y Depression Y COPD Y Gynecological HistoryNo gynecological history recorded. Obstetrics History GPAL:G 0 P 0 0 0 0 Past Encounters Encounter ID Performer Location Encounter Start Date Encounter Closed Date Diagnosis/Indication Diagnosis SNOMED-CT Code Diagnosis ICD10 Code [id number] Tiffany Dorsey [facility] [address] [place] [address] 09/01/2015 10:08:10 11/04/2015 03:49:10 Acute exacerbation of chronic obstructive pulmonary disease 782110212 J44.1 Gastroesop hageal reflux disease 515978187 K21.9 Bipolar disorder 0298318 4 F31.9 Insomnia 492393954 G47.0 0 Tachycardia 1981876 R00. 0 450 mEani Palafox Main Office [address] [facility] [address] [place] [address] 09/02/2015 17:39:53 10/09/2015 03:48:09 Acute exacerbation of chronic obstructive pulmonary disease 933133158 J44.1 Tachycardia 7063853 R00. 0 Bipolar disorder 0973166 4 F31.9 Chronic ob structive pulmonary disease 71125882 J44.9 Health Concerns Section Related Observation LastModified by Organization Detai ls LastModified Time None Recorded Concern Status LastModified by Organization Details LastModified Time None Recorded Advance Directives Directive None Recorded Payers Encounter Date Sequence Insurance Name Policy Number Policy Garcia Covered Member ID Garcia Member ID Guarantor Name 09/01/2015 1 [place] [employer] Lluvia Velezr [id number] Lluvia Cartagena 09/02/2015 1 [place] [employer] Lluvia Escuderohair [id number] Lluvia Cartagena Notes Date Note Type Note Provider Name and Address Organization Details Recorded Time 09/01/2015 text/html HPI patient admitted to [facility] for COPD exacerbation, acute on chronic resp failure, started on Bipap and atenolol for tachycardia? BLAS Rollins [address] [facility] [address], [place], [address], [facility] [employer] 09/01/2015 10:36:55 09/02/2015 text/html HPI 60-year-old female admitted for respiratory infection with negative chest x-ray, acute exacerbation of COPD, but he by hypoxemia and hypercapnia. She required ICU stay for administration of BiPAP. Chest x-ray did not show acute infiltrate. She was treated however with steroids, updraft and antibiotics. History of bipolar disorder as well is active smoker? Mohsen Dos Santos MD [address] [facility] [address], [place], [address], [facility] 09/02/2015 17:45:59 OBGyn Episode No OBEpisode recorded.
[2024-11-15 14:07] VITALS: BP 136/70; PULSE 66; O2SAT 95; BMI 35.4
--- NOTE | 2024-11-15 14:07 | A.OFFVIS_ITS ---
Vital Signs 11/15/24 14:07 Height 5 ft 1 in Weight 187 lb 4 oz BMI 35.4 BP 136/70 Blood Pressure Location Rt brachial Position Sitting Pulse 66 Pulse Source Pulse Oximeter Pulse Oximetry (%) 95 Oxygen Delivery Method Nasal Cannula Oxygen Flow Rate 6 Intake Visit Reasons: COPD follow-up Allergies codeine [Codeine] Allergy (Intermediate, Verified 11/15/24 14:16) RESTLESS/RASH haloperidol [Haldol] Allergy (Intermediate, Verified 11/15/24 14:16) Palpitations Sulfa (Sulfonamide Antibiotics) Allergy (Intermediate, Verified 11/15/24 14:16) HIVES HPI Comments Details: The patient is a 69-year-old woman with known history of COPD and chronic hypoxic and hypercarbic respiratory failure. She 1st did require a tracheostomy in the past and she had a prolonged hospitalization which she was able to be decannulated. She was then placed on noninvasive ventilation. The patient has been inconsistent with the usage. In January of this year the patient was admitted to the hospital with acute on chronic hypercarbic respiratory failure where her pCO2 was about 118 mmHg.. The patient was placed on noninvasive ventilation and her pH normalize and her average pCO2 was between 60-70. She was discharged to use her trilogy at home. At home she is still struggling with the noninvasive ventilator. She has a hard time getting used to it. Her [email or web address], [employer] will be performing overnight oximetry with an end-tidal CO2 to measure her see you to into appropriately adjust her noninvasive ventilator. She also has made mentioning that she has been more short of breath and she has had more hypoxia. In the office we did perform a 6 minutes walk test and she did require 2 L nasal cannula to maintain her pulse ox above 90%. Therefore, she will be using 3 L instead of to with activity and also with sleep. 04/15/2023 the patient is here for pulmonary follow-up visit. She still residing at the [facility]. She is using her trilogy noninvasive ventilator every night. However, she has been using more recently because she ended up in the hospital. She was having chest pressure sensation and dizziness. During the hospitalization at [facility] the patient states that she had an ABG done demonstrating a pCO2 58 and per report was okay. Therefore, will hold off on doing an ABG today. The patient has been fairly relatively well from a respiratory status. She does complaint of heaviness of the chest. On examination she is very diminished. Therefore likely has significant air trapping hyperinflation them every resulting in some chest pressure sensation. I did recommend she start using the trilogy with a sip and puff during the daytime to help her with the air trapping. The patient has also gained weight and that is also going to contribute to additional respiratory symptoms. The patient needs to start working on weight management with the help of the services provided. The patient is using her diuretics with good effect. No significant edema at this time. It is not clear if she is using the theophylline. She has been on multiple medications and has got to multiple institutions so therefore it is hard to know if those removed and if it was stopped for particular reason. We should recheck her theophylline levels if she is on theophylline. Otherwise restart the theophylline if she is off it and then recheck levels. She should stay within the low therapeutic range to help her with her severe COPD. Patient is using her oxygen at 3 L continues with good effect. Again, I reached out to the [employer], [place], to rete she had uses sip and puff device that she can use during the daytime 06/17/2023 the patient is here for pulmonary follow-up visit. The patient has been doing well. She is looking now to move to a detention. in the meantime she is using her noninvasive ventilator. The noninvasive ventilator has been affecting beneficial. We did have her undergo a venous blood gas in appears that her pH is stable. She understands that if she does move to a detention she went to find a way to make sure that she continues use her noninvasive ventilator as prescribed. She continues on respiratory therapy. She continues oxygen supplementation at 3 L could would response. 09/20/2023 the patient has a telehealth visit today. Unfortunately she could not make it in from her residence. She has been more depressed lately. She has recently found out that she lost the services from her [facility]. There been with her for many years. In addition to that the patient has not been using her Trelegy ventilator. She is try to find out how long she can go without it. She was wondering if she can have blood work to see how well her CO2 is while she is not using it. However, I encouraged her to use it since we know that her baseline CO2 is already elevated and by using the ventilator she has better reserved in case she develops an exacerbation or an acute illness. The patient will start using her ventilator at nighttime. I did put him for blood work and she can always have the blood work done here or she can find out another means of doing a. But getting a blood gas will be difficult to do otherwise. The patient did recently have a respiratory illness with a virus. Was not COVID. She was not giving any prednisone or antibiotics. Her cough is not too bad. If the cough worsens with worsening congestion then using a antibiotic to minimize on the postviral bacterial infections would be reasonable. 12/23/2023 the patient is here for a pulmonary follow-up visit. Since we last spoke the patient did have a fall on her [place] [facility]. She fractured multiple ribs and was admitted to [facility] with acute on chronic hypercarbic respiratory failure. She was placed on BiPAP and was able to stabilize. She did not require invasive ventilation. The patient had not been using her noninvasive ventilator at the [place] [facility]. This is unfortunate. She understands the with her condition she relies on this therapy. The patient has been using now regularly since she was discharged from the hospital. She is looking to be placed in a detention. Therefore, she is making the arrangements. We did have her undergo a venous blood gas today and her acid- base status is stable and pCO2 is back to her baseline. Her bicarbonate always will be elevated to try to compensate for the hypercarbia and right now is at 37. she does continue to use her respiratory therapy as prescribed. She is also using oxygen continuously throughout the day with good effect. Once the patient is out of the [place] [facility] to a detention will see about getting pulmonary function studies and starting outpatient pulmonary rehabilitation. Also to note while she was at [facility] she did have a CT scan of the chest that was personally by me. She had multiple rib fractures on the left 1 which was displaced. Also has small subcentimeter pulmonary nodule that will follow-up in a year's time. 02/21/2024 the patient is here for pulmonary follow-up visit. The patient overall has been doing well. She did move out of the [place] [facility] in currently in a detention. She is getting a lot of support. She is taking all her medications. Although, the theophylline 400 mg is not available. I will try sending her a different does see that was available and also will check theophylline levels. The patient has been using her noninvasive ventilator at nighttime. The therapy has been affecting beneficial. We did have her get b lood work and it appears that her bicarb is down to 32 which is very encouraging. The patient also has been using her oxygen at 3 L continues will keep a go above 88%. The patient is able to increase it to 4 L if her oxygen is dropping below 88%. Will go ahead and request pulmonary function studies and plan for pulmonary rehabilitation at this time. Will follow-up in 3 months or sooner if any new issues arise. 05/24/2024 the patient is here for a pulmonary follow-up visit. She was recently at [facility]. There was an issue with her oxygen. Now she is back to her detention. the having hard time regulating her oxygen. We did have her come in for 6 minute walk test. The patient needs 6 L of oxygen with activity and at least 2 L at rest. Although typically she needs more than 2 to keep her pulse ox above 90%. We did review her CT scan of the chest that she had while at [facility]. She has extensive emphysema which explains her very labile oxygen requirements. In addition to that she does have some pulmonary nodules that appear to have increased in size primarily in the left hemithorax. She will need a repeat CT scan in the next 3 months. She has minimal reserve. We did look at her previous PFTs demonstrating very severe COPD and severe diffusion impairment. however, the patient has been fairly well although she has had although severe disease. She has been using her noninvasive ventilator at nighttime. At least 6 hours. We did have her go for blood work including a venous gas demonstrating appears due to a baseline 61 mm of Hg. The patient does have some lower extremity edema. She will benefit from additional diuresis. In addition to that she is having increased wheezing chest tightness and cough. Therefore will send her a prednisone taper and also start an antibiotic. This will be to treat her for COPD exacerbation. She has participating in the pulmonary rehabilitation. She has fine the very affecting beneficial. She will continue for now. 07/06/2024 the patient is here for a pulmonary follow-up visit. She has been in an out of hospital. She has been trying to use her noninvasive ventilator more regularly. She understands it is a necessity for her to use it at least every night. She also continues with respiratory therapy. She has been responding well to the oxygen supplementation. Last blood gas was back the end of May demonstrating a pCO2 around 70 which is close to her baseline. She continues with respiratory therapy with good effect. Appears to have increasing lower extremity edema. Likely secondary to a component I will call pulmonale. Needs to continue with a low sodium diet and diuresis. CXR from 06/21/23 personally reviewed by me without any acute changes. 09/13/2024 the patient has a telehealth visit today. She is status post couple hospitalizations. Now she is at rehab and this is a telehealth. The patient initially was admitted to [facility] back at the end of June with acute on chronic respiratory failure. She was diagnosed with COVID a. During that admission she did have a CT a that I did evaluate. She did have an irregular nodular density in the left upper lobe likely infectious process although since his new and she is high risk for cancer we can not rule out malignancy. She was treated and then subsequently discharged back to her detention. Subsequently after that she went to [facility]. The details are not available but she likely had a tachyarrhythmia. She did require cardioversion. Afterwards the patient was transferred to [facility] which is currently getting rehabilitation. She feels weak. She has a hard time walking. Her oxygen requirements are still about the same 3 L at rest and 6 L with activity. She is also having issues with her noninvasive ventilator which she is waking up short of breath. Therefore, will have her have a repeat 6 minute walk test while she is there she should also continue with multi disciplinary therapies in addition to that will talk to respiratory there to see if they can tweak her ventilator to a higher pressure to help her with those difficult times. The patient plans to go back to her detention. 10/22/2024 the patient is here for hospital follow-up visit. She had been in the hospital with acute on chronic hypoxic and hypercarbic respiratory failure and subsequently went to [facility]. She is currently read some. She is not going back to the detention. She is trying to feel better enough to be able to go to her daughter's. There she could have some assistance from with the [facility] and also some medical assistance. But she is still not clear. She does use the noninvasive ventilator. She did get an placement while at rest own. She is tolerating well. Will have her get a blood gas to see what her CO2 is. In addition to that which she check her theophylline level since she has noticed some tachycardia. She continues to feel weak. She feels like her legs want to give out when she is ambulating. Strikes me that could be related to her CO2 as she has had issues with falls and weakness when her CO2 elevates. 11/15/2024 the patient is here for pulmonary follow-up visit. Since we last spoke she went to [facility] with worsening shortness of breath. There she did have a CT scan of the chest which I personally reviewed. This was done 11/02/20[address] she [address] a CT scan here at [facility] in the summer of 2023 and she had another CT scan at [facility] in 12/17/2023. I did review all of them. She does have a left upper lobe pulmonary nodule that appears to be worsening. There is significant concerned with his nodule for a smoldering infection process such as a fungal infection could be a localized bacterial infection but could also be a malignant process. The patient understands that her lung capacity significantly limited and with end-stage pulmonary disease and we difficult to do any invasive or semi-invasive procedures for diagnostic purposes. Therefore, rather treat her empirically. Will go ahead and request blood work including galactomannan and other laboratories. And will go ahead and treat her for potential staph infection or fungal infection. Plan to repeat the CT scan a couple months. If the area still present then will have to discuss how to proceed. Again, the patient is high risk for any intervention. In the meantime she has been using the noninvasive ventilator. The ventilator has been affecting beneficial although she continues to have elevations in the CO2. Will have to adjusted accordingly. The patient also may have a component of sleep apnea and an in-lab sleep study may be helpful as well to further address any significant sleep apnea and subsequently asleep PAP titration study to properly treat her underlying sleep apnea. She will continue with current respiratory therapy as prescribed. She will continue with the oxygen as prescribed. FORMERLY [facility], [facility] Medical History (Updated 11/15/24 @ 23:34 by Caden Acharya MD) RITA (obstructive sleep apnea) Cor pulmonale Rib fractures Pulmonary nodule Tubular adenoma of colon (~2006) Osteopenia (~2012) Bronchopneumonia Chest pain Chronic respiratory alkalosis ILD (interstitial lung disease) CO2 retention Acute on chronic respiratory failure with hypoxia and hypercapnia Bipolar depression Eczema Limb swelling Insomnia Bronchitis Vasomotor rhinitis COPD (chronic obstructive pulmonary disease) Chronic respiratory failure Fall Acute metabolic encephalopathy Acute and chronic respiratory failure with hypercapnia Surgical History History of carpal tunnel surgery (~2000) History of ventral hernia repair (~2003) History of left inguinal hernia repair (~1995) History of tracheostomy (~2016) History of cataract surgery (~2018) History of colonoscopy Family History Other Hypertension Social History Household Members: None Household Members Other:: detention Housing: Other Housing Other:: detention Are you a primary patient care to a significant other at home: No Do you presently have visiting nurse or other home services: Yes (detention services) Alcohol intake: former Patient Tobacco Use Status: Former Tobacco user Tobacco use type: Cigarette Years Smoked: 20+ years e-Cigarette/Vaping Use: Never Used Second Hand Smoke Exposure: No Advance Directives Date on File: 11/30/21 service: No Current occupational status: disabled Review of Systems Const Reports daytime sleepiness, Reports fatigue, Denies night sweats and Reports weight gain ENT Denies change in voice, Denies lip swelling, Denies mouth pain, Reports nasal congestion, Reports nasal discharge and Denies tongue swelling Card Denies chest pain, Reports pedal edema, Denies leg edema, Reports dyspnea and Reports dyspnea on exertion Resp Denies change in phlegm color, Denies chest congestion, Reports cough, Reports dyspnea, Reports dyspnea on exertion and Reports wheezing GI Denies abdominal pain Musc Denies no additional complaints, Reports abnormal gait and Reports muscle weakness Skin/Breast Reports erythema and Reports skin swelling Neuro Denies Neuro-related abnormal movements, Reports abnormal gait, Reports memory loss and Reports tremor(s) Psych Reports depression and Reports memory loss Endo Reports fatigue Gerson/Lymph Denies easy bleeding and Denies lymphadenopathy Aller/Immun Denies lip swelling, Denies tongue swelling and Reports wheezing Physical Exam Vital Signs: Last Vital Signs Pulse 66 11/15/24 14:07 BP 136/70 11/15/24 14:07 Pulse Ox 95 11/15/24 14:07 Oxygen Delivery Method Nasal Cannula 11/15/24 14:07 Oxygen Flow Rate 6 11/15/24 14:07 BMI result Body Mass Index 35.4 Last Vital Signs Temp 98.2 F 04/15/22 15:12 Pulse 97 04/15/22 15:26 Resp 18 04/15/22 15:26 BP 144/69 H 04/15/22 15:12 Pulse Ox 94 04/15/22 15:12 Oxygen Flow Rate 3 04/13/22 08:52 BMI result Body Mass Index 31.3 Const General: alert Neck Neck: Yes normal visual inspection, Yes full ROM and Yes no lymphadenopathy Chest Chest palpation & inspection: normal inspection of the chest Resp Effort & Inspection: normal respiratory effort and prolonged expiratory phase Auscultation: diminished lung sounds Cardio Rate: regular rate Rhythm: regular rhythm Heart sounds: S1 normal heart sound present and S2 normal heart sound present GI Palpation (GI): Soft to palpation and nontender Auscultation: normal bowel sounds Skin General skin exam: rashes and/or lesions noted Assessment & Plan Assessment & Plan (1) COPD (chronic obstructive pulmonary disease): Code(s): J44.9 - Chronic obstructive pulmonary disease, unspecified Category: Medical Qualifiers: COPD type: emphysema Emphysema type: centrilobular Qualified Code(s): J43.2 - Centrilobular emphysema (2) Pulmonary nodule: Comment: increasing in size CELINA concerning for malignancy of local infection. High risk for any diagnostic interventions Code(s): R91.1 - Solitary pulmonary nodule Category: Medical (3) Chronic respiratory failure: Code(s): J96.10 - Chronic respiratory failure, unspecified whether with hypoxia or hypercapnia Category: Medical Qualifiers: Respiratory failure complication: hypoxia and hypercapnia Qualified Code(s): J96.11 - Chronic respiratory failure with hypoxia; J96.12 - Chronic respiratory failure with hypercapnia (4) Insomnia: Code(s): G47.00 - Insomnia, unspecified Category: Medical Qualifiers: Insomnia type: primary Qualified Code(s): F51.01 - Primary insomnia (5) Respiratory failure: Code(s): J96.90 - Respiratory failure, unspecified, unspecified whether with hypoxia or hypercapnia Category: Medical Qualifiers: Chronicity: chronic Respiratory failure complication: hypoxia and hypercapnia Qualified Code(s): J96.11 - Chronic respiratory failure with hypoxia; J96.12 - Chronic respiratory failure with hypercapnia (6) Chronic hypoxic respiratory failure: Code(s): J96.11 - Chronic respiratory failure with hypoxia Category: Medical (7) RITA (obstructive sleep apnea): Code(s): G47.33 - Obstructive sleep apnea (adult) (pediatric) Category: Medical Plan continue nighttime noninvasive ventilator use. consider a split sleep study start Doxycycline start voriconazole bloodwork repeat CT chest in 2 months continue Breo continue Incruse continue respiratory therapy oxygen at 3 liters/minute at rest and 6L/minute weight management continue inpt pulmonary rehab Will need a f/u CT chest in 2 months F/U 2 months Orders: Orders Erythrocyte Sedimentation Rate Today R91.1 - Solitary pulmonary nodule Complete Blood Count Auto Diff Today R91.1 - Solitary pulmonary nodule Aspergillus Ag EIA Today J43.2 - Centrilobular emphysema Liver Panel Today R91.1 - Solitary pulmonary nodule Venous Blood Gas Today R91.1 - Solitary pulmonary nodule CT chest wo IV con 8 Weeks R91.1 - Solitary pulmonary nodule Coding Level of Care Code Est Pt Level 5 (64670) Complex EM visit Add On G2211 Diagnoses Centrilobular emphysema J43.2 COPD type: emphysema Emphysema type: centrilobular Pulmonary nodule R91.1 Chronic respiratory failure with hypoxia and hypercapnia J96.11; J96.12 Respiratory failure complication: hypoxia and hypercapnia Primary insomnia F51.01 Insomnia type: primary Chronic respiratory failure with hypoxia and hypercapnia J96.11; J96.12 Chronicity: chronic Respiratory failure complication: hypoxia and hypercapnia Chronic hypoxic respiratory failure J96.11 RITA (obstructive sleep apnea) G47.33 Time Spent (min) 35
== END 2024-11-15 14:45 | disposition home or self-care (01) ==
PROVIDERS: PCP Student in an Organized Health Care Education/Training Program; Visit Provider Hospitalist
DX: J43.2 Centrilobular emphysema (principal); R91.1 Solitary pulmonary nodule; J96.11 Chronic respiratory failure with hypoxia; J96.12 Chronic respiratory failure with hypercapnia; F51.01 Primary insomnia; G47.33 Obstructive sleep apnea (adult) (pediatric)
CPT/HCPCS: 99214; G2211

== ENCOUNTER 2024-12-20 10:36 | Outpatient (AMB) | payer MEDICARE, MEDICAID, SELFPAY ==
[2024-12-20 10:37] VITALS: BP 120/62; PULSE 80; O2SAT 98; BMI 35.4
--- NOTE | 2024-12-20 10:37 | A.OFFVIS_ITS ---
Vital Signs 12/20/24 10:37 Height 5 ft 1 in Weight 187 lb 6.287 oz BMI 35.4 BP 120/62 Blood Pressure Location Rt brachial Position Sitting Pulse 80 Pulse Source Pulse Oximeter Pulse Oximetry (%) 98 Oxygen Delivery Method Nasal Cannula Oxygen Flow Rate 3 Intake Visit Reasons: COPD Allergies codeine [Codeine] Allergy (Intermediate, Verified 12/20/24 10:49) RESTLESS/RASH haloperidol [Haldol] Allergy (Intermediate, Verified 12/20/24 10:49) Palpitations Sulfa (Sulfonamide Antibiotics) Allergy (Intermediate, Verified 12/20/24 10:49) HIVES HPI Comments Details: The patient is a 69-year-old woman with known history of COPD and chronic hypoxic and hypercarbic respiratory failure. She 1st did require a tracheostomy in the past and she had a prolonged hospitalization which she was able to be decannulated. She was then placed on noninvasive ventilation. The patient has been inconsistent with the usage. In January of this year the patient was admitted to the hospital with acute on chronic hypercarbic respiratory failure where her pCO2 was about 118 mmHg.. The patient was placed on noninvasive ventilation and her pH normalize and her average pCO2 was between 60-70. She was discharged to use her trilogy at home. At home she is still struggling with the noninvasive ventilator. She has a hard time getting used to it. Her [employer] will be performing overnight oximetry with an end-tidal CO2 to measure her see you to into appropriately adjust her noninvasive ventilator. She also has made mentioning that she has been more short of breath and she has had more hypoxia. In the office we did perform a 6 minutes walk test and she did require 2 L nasal cannula to maintain her pulse ox above 90%. Therefore, she will be using 3 L instead of to with activity and also with sleep. 04/15/2023 the patient is here for pulmonary follow-up visit. She still residing at the [facility]. She is using her trilogy noninvasive ventilator every night. However, she has been using more recently because she ended up in the hospital. She was having chest pressure sensation and dizziness. During the hospitalization at [facility] the patient states that she had an ABG done demonstrating a pCO2 58 and per report was okay. Therefore, will hold off on doing an ABG today. The patient has been fairly relatively well from a respiratory status. She does complaint of heaviness of the chest. On examination she is very diminished. Therefore likely has significant air tra pping hyperinflation them every resulting in some chest pressure sensation. I did recommend she start using the trilogy with a sip and puff during the daytime to help her with the air trapping. The patient has also gained weight and that is also going to contribute to additional respiratory symptoms. The patient needs to start working on weight management with the help of the services provided. The patient is using her diuretics with good effect. No significant edema at this time. It is not clear if she is using the theophylline. She has been on multiple medications and has got to multiple institutions so therefore it is hard to know if those removed and if it was stopped for particular reason. We should recheck her theophylline levels if she is on theophylline. Otherwise restart the theophylline if she is off it and then recheck levels. She should stay within the low therapeutic range to help her with her severe COPD. Patient is using her oxygen at 3 L continues with good effect. Again, I reached out to the [employer] to rete she had uses sip and puff device that she can use during the daytime 06/17/2023 the patient is here for pulmonary follow-up visit. The patient has been doing well. She is looking now to move to a custodial. in the meantime she is using her noninvasive ventilator. The noninvasive ventilator has been affecting beneficial. We did have her undergo a venous blood gas in appears that her pH is stable. She understands that if she does move to a custodial she went to find a way to make sure that she continues use her noninvasive ventilator as prescribed. She continues on respiratory therapy. She continues oxygen supplementation at 3 L could would response. 09/20/2023 the patient has a telehealth visit today. Unfortunately she could not make it in from her residence. She has been more depressed lately. She has recently found out that she lost the services from her [facility]. There been with her for many years. In addition to that the patient has not been using her Trelegy ventilator. She is try to find out how long she can go without it. She was wondering if she can have blood work to see how well her CO2 is while she is not using it. However, I encouraged her to use it since we know that her baseline CO2 is already elevated and by using the ventilator she has better reserved in case she develops an exacerbation or an acute illness. The patient will start using her ventilator at nighttime. I did put him for blood work and she can always have the blood work done here or she can find out another means of doing a. But getting a blood gas will be difficult to do otherwise. The patient did recently have a respiratory illness with a virus. Was not COVID. She was not giving any prednisone or antibiotics. Her cough is not too bad. If the cough worsens with worsening congestion then using a antibiotic to minimize on the postviral bacterial infections would be reasonable. 12/23/2023 the patient is here for a pulmonary follow-up visit. Since we last spoke the patient did have a fall on her long term. She fractured multiple ribs and was admitted to [facility] with acute on chronic hypercarbic respiratory failure. She was placed on BiPAP and was able to stabilize. She did not require invasive ventilation. The patient had not been using her noninvasive ventilator at the long term. This is unfortunate. She understands the with her condition she relies on this therapy. The patient has been using now regularly since she was discharged from the hospital. She is looking to be placed in a custodial. Therefore, she is making the arrangements. We did have her undergo a venous blood gas today and her acid- base status is stable and pCO2 is back to her baseline. Her bicarbonate always will be elevated to try to compensate for the hypercarbia and right now is at 37. she does continue to use her respiratory therapy as prescribed. She is also using oxygen continuously throughout the day with good effect. Once the patient is out of the long term to a custodial will see about getting pulmonary function studies and starting outpatient pulmonary rehabilitation. Also to note while she was at [facility] she did have a CT scan of the chest that was personally by me. She had multiple rib fractures on the left 1 which was displaced. Also has small subcentimeter pulmonary nodule that will follow-up in a year's time. 02/21/2024 the patient is here for pulmonary follow-up visit. The patient overall has been doing well. She did move out of the long term in currently in a custodial. She is getting a lot of support. She is taking all her medications. Although, the theophylline 400 mg is not available. I will try sending her a different does see that was available and also will check theophylline levels. The patient has been using her noninvasive ventilator at nighttime. The therapy has been affecting beneficial. We did have her get blood work and it appears that her bicarb is down to 32 which is very encouraging. The patient also has been using her oxygen at 3 L continues will keep a go above 88%. The patient is able to increase it to 4 L if her oxygen is dropping below 88%. Will go ahead and request pulmonary function studies and plan for pulmonary rehabilitation at this time. Will follow-up in 3 months or sooner if any new issues arise. 05/24/2024 the patient is here for a pulmonary follow-up visit. She was recently at [facility]. There was an issue with her oxygen. Now she is back to her custodial. the having hard time regulating her oxygen. We did have her come in for 6 minute walk test. The patient needs 6 L of oxygen with activity and at least 2 L at rest. Although typically she needs more than 2 to keep her pulse ox above 90%. We did review her CT scan of the chest that she had while at [facility]. She has extensive emphysema which explains her very labile oxygen requirements. In addition to that she does have some pulmonary nodules that appear to have increased in size primarily in the left hemithorax. She will need a repeat CT scan in the next 3 months. She has minimal reserve. We did look at her previous PFTs demonstrating very severe COPD and severe diffusion impairment. however, the patient has been fairly well although she has had although severe disease. She has been using her noninvasive ventilator at nighttime. At least 6 hours. We did have her go for blood work including a venous gas demonstrating appears due to a baseline 61 mm of Hg. The patient does have some lower extremity edema. She will benefit from additional diuresis. In addition to that she is having increased wheezing chest tightness and cough. Therefore will send her a prednisone taper and also start an antibiotic. This will be to treat her for COPD exacerbation. She has participating in the pulmonary rehabilitation. She has fine the very affecting beneficial. She will continue for now. 07/06/2024 the patient is here for a pulmonary follow-up visit. She has been in an out of hospital. She has been trying to use her noninvasive ventilator more regularly. She understands it is a necessity for her to use it at least every night. She also continues with respiratory therapy. She has been responding well to the oxygen supplementation. Last blood gas was back the end of May demonstrating a pCO2 around 70 which is close to her baseline. She continues with respiratory therapy with good effect. Appears to have increasing lower extremity edema. Likely secondary to a component I will call pulmonale. Needs to continue with a low sodium diet and diuresis. CXR from 06/21/23 personally reviewed by me without any acute changes. 09/13/2024 the patient has a telehealth visit today. She is status post couple hospitalizations. Now she is at rehab and this is a telehealth. The patient initially was admitted to [facility] back at the end of June with acute on chronic respiratory failure. She was diagnosed with COVID a. During that admission she did have a CT a that I did evaluate. She did have an irregular nodular density in the left upper lobe likely infectious process although since his new and she is high risk for cancer we can not rule out malignancy. She was treated and then subsequently discharged back to her custodial. Subsequently after that she went to [facility]. The details are not available but she likely had a tachyarrhythmia. She did require cardioversion. Afterwards the patient was [facility] which is currently getting rehabilitation. She feels weak. She has a hard time walking. Her oxygen requirements are still about the same 3 L at rest and 6 L with activity. She is also having issues with her noninvasive ventilator which she is waking up short of breath. Therefore, will have her have a repeat 6 minute walk test while she is there she should also continue with multi disciplinary therapies in addition to that will talk to respiratory there to see if they can tweak her ventilator to a higher pressure to help her with those difficult times. The patient plans to go back to her custodial. 10/22/2024 the patient is here for hospital follow-up visit. She had been in the hospital with acute on chronic hypoxic and hypercarbic respiratory failure and subsequently went to [facility]. She is currently read some. She is not going back to the custodial. She is trying to feel better enough to be able to go to her daughter's. There she could have some assistance from with the family and also some medical assistance. But she is still not clear. She does use the noninvasive ventilator. She did get an placement while at rest own. She is tolerating well. Will have her get a blood gas to see what her CO2 is. In addition to that which she check her theophylline level since she has noticed some tachycardia. She continues to feel weak. She feels like her legs want to give out when she is ambulating. Strikes me that could be related to her CO2 as she has had issues with falls and weakness when her CO2 elevates. 11/15/2024 the patient is here for pulmonary follow-up visit. Since we last spoke she went to [facility] with worsening shortness of breath. There she did have a CT scan of the chest which I personally reviewed. This was done 11/02/2024 she also had a CT scan here at [facility] in the summer of 2023 and she had another CT scan at [facility] in 12/17/2023. I did review all of them. She does have a left upper lobe pulmonary nodule that appears to be worsening. There is significant concerned with his nodule for a smoldering infection process such as a fungal infection could be a localized bacterial infection but could also be a malignant process. The patient understands that her lung capacity significantly limited and with end-stage pulmonary disease and we difficult to do any invasive or semi-invasive procedures for diagnostic pu rposes. Therefore, rather treat her empirically. Will go ahead and request blood work including galactomannan and other laboratories. And will go ahead and treat her for potential staph infection or fungal infection. Plan to repeat the CT scan a couple months. If the area still present then will have to discuss how to proceed. Again, the patient is high risk for any intervention. In the meantime she has been using the noninvasive ventilator. The ventilator has been affecting beneficial although she continues to have elevations in the CO2. Will have to adjusted accordingly. The patient also may have a component of sleep apnea and an in-lab sleep study may be helpful as well to further address any significant sleep apnea and subsequently asleep PAP titration study to properly treat her underlying sleep apnea. She will continue with current respiratory therapy as prescribed. She will continue with the oxygen as prescribed. 12/20/2024 the patient is here for a pulmonary follow-up visit. Overall she is doing well. She is moving out of bed some going with her daughter. She is excited. In the meantime she has been using her noninvasive ventilator every night. The therapy has been affecting beneficial although she feels like sometimes she wakes up breathless and sometimes her oxygen requirements are increased. We will request a download in order to be able to adjust the machine accordingly with the help of [employer]. In addition to that she was admitted briefly to [facility] with significant anemia. She was placed on iron and now she is a little constipated. She is going to monitor closely her anemia specially because of her significant respiratory disease the anemia will ultimately resulting significantly worsening respiratory symptoms. If we not able to adjust her noninvasive ventilator appropriately that we can always consider a titration study. She also had an abnormal CT scan back in October and we had requested repeat. In the meantime she went to [facility] she did have a chest x- ray which is reassuring. Demonstrating emphysema and chronic stable findings. [facility] Medical History (Updated 11/15/24 @ 23:34 by Caden Acharya MD) RITA (obstructive sleep apnea) Cor pulmonale Rib fractures Pulmonary nodule Tubular adenoma of colon (~2006) Osteopenia (~2012) Bronchopneumonia Chest pain Chronic respiratory alkalosis ILD (interstitial lung disease) CO2 retention Acute on chronic respiratory failure with hypoxia and hypercapnia Bipolar depression Eczema Limb swelling Insomnia Bronchitis Vasomotor rhinitis COPD (chronic obstructive pulmonary disease) Chronic respiratory failure Fall Acute metabolic encephalopathy Acute and chronic respiratory failure with hypercapnia Surgical History History of carpal tunnel surgery (~2000) History of ventral hernia repair (~2003) History of left inguinal hernia repair (~1995) History of tracheostomy (~2016) History of cataract surgery (~2018) History of colonoscopy Family History Other Hypertension Social History Household Members: None Household Members Other:: custodial Housing: Other Housing Other:: custodial Are you a primary childcare aide to a significant other at home: No Do you presently have visiting nurse or other home services: Yes (custodial services) Alcohol intake: former Patient Tobacco Use Status: Former Tobacco user Tobacco use type: Cigarette Years Smoked: 20+ years e-Cigarette/Vaping Use: Never Used Second Hand Smoke Exposure: No Advance Directives Date on File: 11/30/21 service: No Current occupational status: disabled Review of Systems Const Reports daytime sleepiness, Reports fatigue, Denies night sweats and Reports weight gain ENT Denies change in voice, Denies lip swelling, Denies mouth pain, Reports nasal congestion, Reports nasal discharge and Denies tongue swelling Card Denies chest pain, Reports pedal edema, Denies leg edema, Reports dyspnea and Reports dyspnea on exertion Resp Denies change in phlegm color, Denies chest congestion, Reports cough, Reports dyspnea, Reports dyspnea on exertion and Reports wheezing GI Denies abdominal pain Musc Denies no additional complaints, Reports abnormal gait and Reports muscle weakness Skin/Breast Reports erythema and Reports skin swelling Neuro Denies Neuro-related abnormal movements, Reports abnormal gait, Reports memory loss and Reports tremor(s) Psych Reports depression and Reports memory loss Endo Reports fatigue Gerson/Lymph Denies easy bleeding and Denies lymphadenopathy Aller/Immun Denies lip swelling, Denies tongue swelling and Reports wheezing Physical Exam Vital Signs: Last Vital Signs Pulse 80 12/20/24 10:37 BP 120/62 12/20/24 10:37 Pulse Ox 98 12/20/24 10:37 Oxygen Delivery Method Nasal Cannula 12/20/24 10:37 Oxygen Flow Rate 3 12/20/24 10:37 BMI result Body Mass Index 35.4 Last Vital Signs Temp 98.2 F 04/15/22 15:12 Pulse 97 04/15/22 15:26 Resp 18 04/15/22 15:26 BP 144/69 H 04/15/22 15:12 Pulse Ox 94 04/15/22 15:12 Oxygen Flow Rate 3 04/13/22 08:52 BMI result Body Mass Index 31.3 Const General: alert Neck Neck: Yes normal visual inspection, Yes full ROM and Yes no lymphadenopathy Chest Chest palpation & inspection: normal inspection of the chest Resp Effort & Inspection: normal respiratory effort and prolonged expiratory phase Auscultation: diminished lung sounds Cardio Rate: regular rate Rhythm: regular rhythm Heart sounds: S1 normal heart sound present and S2 normal heart sound present GI Palpation (GI): Soft to palpation and nontender Auscultation: normal bowel sounds Skin General skin exam: rashes and/or lesions noted Assessment & Plan Assessment & Plan (1) COPD (chronic obstructive pulmonary disease): Code(s): J44.9 - Chronic obstructive pulmonary disease, unspecified Category: Medical Qualifiers: COPD type: emphysema Emphysema type: centrilobular Qualified Code(s): J43.2 - Centrilobular emphysema (2) Pulmonary nodule: Comment: increasing in size CELINA concerning for malignancy of local infection. High risk for any diagnostic interventions Code(s): R91.1 - Solitary pulmonary nodule Category: Medical (3) Chronic respiratory failure: Code(s): J96.10 - Chronic respiratory failure, unspecified whether with hypoxia or hypercapnia Category: Medical Qualifiers: Respiratory failure complication: hypoxia and hypercapnia Qualified Code(s): J96.11 - Chronic respiratory failure with hypoxia; J96.12 - Chronic respiratory failure with hypercapnia (4) Insomnia: Code(s): G47.00 - Insomnia, unspecified Category: Medical Qualifiers: Insomnia type: primary Qualified Code(s): F51.01 - Primary insomnia (5) Respiratory failure: Code(s): J96.90 - Respiratory failure, unspecified, unspecified whether with hypoxia or hypercapnia Category: Medical Qualifiers: Chronicity: chronic Respiratory failure complication: hypoxia and hypercapnia Qualified Code(s): J96.11 - Chronic respiratory failure with hypoxia; J96.12 - Chronic respiratory failure with hypercapnia (6) Chronic hypoxic respiratory failure: Code(s): J96.11 - Chronic respiratory failure with hypoxia Category: Medical (7) RITA (obstructive sleep apnea): Code(s): G47.33 - Obstructive sleep apnea (adult) (pediatric) Category: Medical Plan continue nighttime noninvasive ventilator use. Will increase presures. repeat CT chest continue Breo continue Incruse continue respiratory therapy oxygen at 3 liters/minute at rest and 6L/minute weight management continue inpt pulmonary rehab F/U 2 months Coding Level of Care Code Est Pt Level 4 (03631) Complex EM visit Add On G2211 Diagnoses Centrilobular emphysema J43.2 COPD type: emphysema Emphysema type: centrilobular Pulmonary nodule R91.1 Chronic respiratory failure with hypoxia and hypercapnia J96.11; J96.12 Respiratory failure complication: hypoxia and hypercapnia Primary insomnia F51.01 Insomnia type: primary Chronic respiratory failure with hypoxia and hypercapnia J96.11; J96.12 Chronicity: chronic Respiratory failure complication: hypoxia and hypercapnia Chronic hypoxic respiratory failure J96.11 RITA (obstructive sleep apnea) G47.33 Time Spent (min) 17
--- OUTSIDE RECORDS SUMMARY | 2024-12-20 12:32 | XMS_ITS | Data Portability ---
Author Organization [facility], Main Office Address [address] [facility], [address] [place] [address] Care Team Providers Care Licensed Direct Entry Midwife Name Role Phone [facility] OTHER [phone] Assessment No assessment recorded. Plan of Treatment [...] Name and Address Organization Details Recorded Time Acute on chronic hypoxemi c respirat ory failure [id number] Completed 202412/20/2024 Not Available [facility] 09:41:58 Acute exacerba tion of chronic obstruct sophie pulmonar y disease 483054153 Completed 202312/20/2024 Not Available [facility] 5 09:42:00 Fracture of multiple ribs 6602586 Completed 202312/20/2024 Not Available [facility] 5 09:42:01 Acidosis 62915532 Completed 202312/20/2024 Not Available [facility] 5 09:42:02 Acute on chronic hypercap juan respirat ory failure 24781163767 06 Completed 202312/20/2024 Not Available [facility] 5 09:42:03 Acute exacerba tion of chronic obstruct sophie pulmonar y disease 881488957 Completed 202112/20/2024 Not Available [facility] 5 09:42:03 Congesti ve heart failure 94137906 Completed 202312/20/2024 Not Available [facility] 5 09:42:04 Acute on chronic hypoxemi c respirat ory failure 97659915732 890088 Completed 202312/20/2024 Not Available [facility] 5 09:42:06 Muscle weakness 37940669 Completed 202112/20/2024 Not Available [facility] 5 09:42:06 Chronic hypercap juan respirat ory failure 799372368 Completed 202312/20/2024 Not Available [facility] 5 09:42:43 Acute pulmonar y edema 88751141 Completed 202312/20/2024 Not Available [facility] 5 09:42:08 Difficul ty walking 651641820 Completed 202212/20/2024 Not Available [facility] 5 09:42:08 Pneumoni a 646056776 Completed 202312/20/2024 Not Available [facility] 5 09:42:09 Congesti ve heart failure 30302131 Completed 202312/20/2024 Not Available [facility] 5 09:42:10 Intersti tial lung disease 204691233 Completed 202112/20/2024 Not Available [facility] 5 09:42:11 Need for personal care assistan ce 74150319379 942218 Completed 202312/20/2024 Not Available [facility] 5 09:42:11 Fall Completed 202212/20/2024 Not Available [facility] 5 09:42:12 Orophary ngeal dysphagi a 10129384 Completed 202112/20/2024 Not Available [facility] 5 09:42:13 Metaboli c encephal opathy 33024135 Completed 202112/20/2024 Not Available [facility] 5 09:42:14 Dyspnea 862972093 Completed 202112/20/2024 Not Available [facility] 5 09:42:14 Anemia 952975682 Active 2024 Not Available [facility] 5 09:42:15 Epilepsy 71458085 Active 2024 Not Available [facility] 5 09:42:15 Muscle weakness 83390721 Completed 202312/20/2024 Not Available [facility] 5 09:42:16 Difficul ty walking 695497461 Completed 202312/20/2024 Not Available [facility] 5 09:42:17 Chronic cor pulmonal e 80178609 Completed 202312/20/2024 Not Available [facility] 5 09:42:17 Atopic dermatit is 85593191 Completed 202312/20/2024 Not Available [facility] 5 09:42:18 Acute exacerba tion of chronic obstruct sophie pulmonar y disease 575834875 Completed 202312/20/2024 Not Available [facility] 5 09:42:19 Congesti ve heart failure 47766952 Active 2023 Not Available [facility] 5 09:42:19 Paroxysm al atrial fibrilla tion 712848225 Active 2023 Not Available [facility] 5 09:42:20 Major depressi on, single episode 25580711 Completed 202312/20/2024 Not Available [facility] 5 09:42:45 Posttrau matic stress disorder 96486441 Active 2023 Not Available [facility] 5 09:42:20 Dependen ce on enabling machine or device 192233291 Active 2023 IVAP Not Available [facility] 5 09:42:21 Dependen ce on suppleme ntal oxygen 43211787384 7 Completed 202312/20/2024 Not Available [facility] 5 09:42:37 Pulmonar y emphysem a 49485996 Active 2023 Not Available [facility] 5 09:42:22 Anxiety disorder 989387042 Active 2023 Not Available [facility] 5 09:42:22 Inflamma tory dermatos is 279321089 Completed 202312/20/2024 eczema Not Available [facility] 5 09:42:23 Unsteady when standing 637755784 Completed 202312/20/2024 Not Available [facility] 5 09:42:24 Muscle weakness 24015955 Completed 202312/20/2024 Not Available [facility] 5 09:42:25 Dyspnea 093301012 Completed 202312/20/2024 Not Available [facility] 5 09:42:25 Difficul ty walking 715804378 Completed 202312/20/2024 Not Available [facility] 5 09:42:26 Somatic syndrome absent 880307262 Active 2023 Not Available [facility] 5 09:42:27 Fall Completed 202312/20/2024 Not Available [facility] 5 09:42:29 Acute on chronic hypoxemi c respirat ory failure 84151671745 154507 Completed 202312/20/2024 Not Available [facility] 5 09:42:29 Syncope and collapse 142508157 Completed 202312/20/2024 Not Available [facility] 5 09:42:30 Difficul ty walking 432021979 Completed 202312/20/2024 Not Available [facility] 5 09:42:31 Pleuriti c pain 3143640 Completed 202212/20/2024 Not Available [facility] 5 09:42:32 Localize d, primary osteoart hritis of the ankle and/or foot 261034744 Completed 202212/20/2024 Not Available [facility] 5 09:42:33 Pain in left foot 20475779574 9107 Completed 202212/20/2024 Not Available [facility] 5 09:42:34 Essentia l hyperten lisa 86923700 Active 2022 Not Available [facility] 5 09:42:34 Osteopor osis 47078779 Completed 202212/20/2024 Not Available [facility] 5 09:42:52 Gastroes ophageal reflux disease without esophagi tis 105664355 Active 2022 Not Available [facility] 5 09:42:35 Chronic hypoxemi c respirat ory failure 298202266 Completed 202212/20/2024 Not Available [facility] 5 09:42:36 Senile cataract 54534355 Active 2022 Not Available [facility] 5 09:42:36 Chronic obstruct sophie pulmonar y disease 49401713 Completed 202212/20/2024 Not Available [facility] 5 09:42:38 Disorder of body system 590512448 Completed 202212/20/2024 Not Available [facility] 5 09:42:39 Constipa tion 22980890 Completed 202112/20/2024 Not Available [facility] 5 09:42:40 Abnormal posture 84192229 Completed 202112/20/2024 Not Available [facility] 5 09:42:41 Abnormal posture 25156380 Completed 202112/20/2024 Not Available [facility] 5 09:42:42 Obesity 842081345 Completed 202012/20/2024 Not Available [facility] 5 09:42:44 Dyspnea 483910411 Completed 202012/20/2024 Not Available [facility] 5 09:42:45 Acute on chronic hypercap juan respirat ory failure 26494502188 06 Completed 202012/20/2024 Not Available [facility] 5 09:42:46 Late effect of accident al fall 494613380 Completed 202012/20/2024 Not Available [facility] 5 09:42:47 Unsteady when standing 015860151 Completed 202012/20/2024 Not Available [facility] 5 09:42:48 Syncope and collapse 355180959 Completed 202012/20/2024 Not Available [facility] 5 09:42:50 Acute exacerba tion of chronic obstruct sophie pulmonar y disease 456751495 Completed 202012/20/2024 Not Available [facility] 5 09:42:51 Muscle weakness 24483444 Completed 202012/20/2024 Not Available [facility] 5 09:42:53 Difficul ty walking 411969909 Completed 202012/20/2024 Not Available [facility] 09:42:55 Inflamma tory dermatos is 937884420 Completed 202012/20/2024 eczema Not Available [facility] 5 09:42:55 Bronchit is 09986187 Completed 202012/20/2024 Not Available [facility] 5 09:42:56 Chronic obstruct sophie pulmonar y disease 08709385 Completed 12/20/2024 Not Available [facility] 09:42:28 Depressi ve disorder 57567819 Active BLAS Rollins [address], [address] , [email or web address] 5 10:21:22 Acute exacerba tion of chronic obstruct sophie pulmonar y disease 407647736 Completed 12/20/2024 Not Available [facility] 5 09:41:59 Gastroes ophageal reflux disease 518095402 Active [facility] Roll[facility] [address] [facility] [facility] [address], [place], [address] , [email or web address] 5 10:33:02 Bipolar disorder 87746432 Completed 12/20/2024 Not Available [facility] 5 09:42:49 Insomnia 385598866 Completed 12/20/2024 Not Available [facility] 5 09:42:54 Tachycar fiordaliza 9885592 Active Mohsen Dos Santos MD [address], [address] , [email or web address] 5 17:45:58 Problem Notes None recorded. Medical Equipment None Reported. Allergies Allergen ID Allergen Name Allergen Category Reaction Reaction Severity Criticality Documentation Date Start Date Code Code System Note Provider Name and Address Organization Details Recorded Time [id number] 2824e Haldol medicatio n Not available Not available Not available 09/01/2015 84930 9 RxNorm Not Available Not Available Not Available [id number] codeine medicatio n Not available Not available Not available 09/01/20152021 2670 RxNorm Restl ess/R jai Not Available Not Available Not Available [id number] 304845180 5799702k4 2824e Substance with sulfonami de structure and antibacte rial mechanism of action (substanc e) medicatio n Not available Not available Not available 09/01/2015 40279 8003 SNOMED Not Available Not Available Not Available [id number] 815475151 [id number] 2824e haloperid ol medicatio n Not available Not available Not available 12/20/20242021 5093 RxNorm Palpa tions Not Available Not Available Not Available [id number] 274195399 0845395i3 2824e fluoxetin e medicatio n Not available Not available Not available 12/20/20242023 4493 RxNorm Not Available Not Available Not Available Medications Name Sig Start Date Stop Date Status Note LastModified by Organization Details LastModified Time lamotrigine 150 mg tablet Give 2 tablet by mouth at bedtime for ANTICONVU LSANT 2 tabs (300mg) at bedtime 2023 active Not Available Not Available Not Avai lable doxycycline hyclate 100 mg capsule Give 1 capsule by mouth two times a day for 21 Days Avoid concurren t doses of antacids and iron products, take with plenty of water 12/07 completed Not Available Not Available Not Available lamotrigine 200 mg tablet Give 1 tablet by mouth one time a day for ANTICONVU LSANT 2023 active Not Available Not Available Not Avai lable Proventil 2.5 mg/3 mL (0.083 %) solution for nebulizatio n 1 vial inhale orally via nebulizer every 6 hours as needed for Wheeze;Sh ortness of Breath 2024 active Not Available Not Available Not Avai lable Lasix 40 mg tablet Give 1 tablet by mouth one time a day for DIURETICS Hold for SBP <90 2023 active Not Available Not Available Not Avai lable alendronate 70 mg tablet Give 1 tablet by mouth in the morning every Sun for ENDOCRINE AND METABOLIC AGENTS 2023 active Not Available Not Available Not Avai lable metoprolol succinate ER 100 mg tablet,exte nded release 24 hr Give 100 mg by mouth one time a day for HTN 2023 active Not Available Not Available Not Avai lable Flonase 50 mcg/actuati on nasal spray,suspe nsion 1 inhalatio n in nostril one time a day for Allergies 2023 active Not Available Not Available Not Avai lable Diprosone 0.05 % topical cream Apply to Face topically every 12 hours as needed for Dermititi s 2023 active Not Available Not Available Not Avai lable Non-Aspirin Extra Strength 500 mg tablet Give 2 tablet by mouth every 8 hours as needed for Mild Pain Do not exceed 3 grams in 24 hours.(To bryce Dose 1000mg) 2023 active Not Available Not Available Not Avai lable Klotrix 10 mEq tablet,exte nded release Give 1 tablet by mouth one time a day for low potassium level Do not crush or chew. Take with meal. Take with plenty of water. 2023 active Not Available Not Available Not Avai lable pantoprazol e 40 mg tablet,irving yed release Give 40 mg by mouth in the morning for GERD 2023 active Not Available Not Available Not Avai lable DSS 100 mg capsule Give 1 capsule by mouth as needed for Constipat ion 2023 active Not Available Not Available Not Avai lable montelukast 10 mg tablet Give 10 mg by mouth at bedtime for Asthma 2023 active Not Available Not Available Not Avai lable Proventil HFA 90 mcg/actuati on aerosol inhaler 2 puff inhale orally every 6 hours as needed for Respirato ry distress 2023 active Not Available Not Available Not Avai lable mirtazapine 15 mg tablet Give 15 mg by mouth at bedtime for depressio n 2023 active Not Available Not Available Not Avai lable gabapentin 100 mg capsule Give 1 capsule by mouth three times a day for ANTICONVU LSANTS May cause drowsines s or dizziness . Avoid alcohol. 2023 active Not Available Not Available Not Avai lable Ativan 0.5 mg tablet Give 0.25 mg by mouth every 8 hours as needed for Anxiety/r espirator y distress for 14 Days Give 1/2 tab (0.25 mg) every 8 hrs as needed times 14 days then reassess 12/14 completed Not Available Not Available Not Available Sterapred 5 mg tablet Give 1 tablet by mouth one time a day for COPD 2023 active Not Available Not Available Not Avai lable Theolair-SR 200 mg tablet,exte nded release Give 1 tablet by mouth every 12 hours for ANTIASTHM ATIC AND BRONCHODI LATOR 2023 active Not Available Not Available Not Avai lable Adult Low Dose Aspirin 81 mg tablet,irving yed release Give 1 tablet by mouth one time a day for ANALGESIC S Take with full glass of water, do not crush. Monitor for bleeding, bruising, and black tarry stools. Give with food to minimize GI irritatio n 2023 active Not Available Not Available Not Avai lable voriconazol e 200 mg tablet Give 1 tablet by mouth two times a day for fungal infection for 28 Days 12/14 completed Not Available Not Available Not Available Abilify 10 mg tablet Give 1 tablet by mouth in the morning 2024 active Not Available Not Available Not Avai lable Abilify 15 mg tablet Give 1 tablet by mouth one time a day for ANTIPSYCH OTICS/ANT IMANIC May cause drowsines s, avoid alcohol 12/14 completed Not Available Not Available Not Available cyclobenzap rine 5 mg tablet Give 1 tablet by mouth every 8 hours as needed for Muscle pain 2023 active Not Available Not Available Not Avai lable fluocinolon e acetonide oil 0.01 % ear drops Instill 4 drop in both ears one time a day every other day for ear drops 2023 active Not Available Not Available Not Avai lable vilazodone 40 mg tablet Give 1 tablet by mouth one time a day for ANTIDEPRE SSANTS 2023 active Not Available Not Available Not Avai lable sodium phosphates 19 gram-7 gram/197 mL enema Insert 1 unit rectally every 24 hours as needed for Constipat ion Use only if Bisacodyl Supposito ry is ineffecti ve 2023 active Not Available Not Available Not Avai lable lactulose 10 gram/15 mL (15 mL) oral solution Give 30 ml by mouth every 24 hours as needed for Constipat ion Give 30ml by mouth as needed if no BM in 2 days 2023 active Not Available Not Available Not Avai lable Eliquis 5 mg tablet Give 1 tablet by mouth two times a day for ANTICOAGU LANTS 2023 active Not Available Not Available Not Avai lable Arexvy (PF) 120 mcg/0.5 mL IM suspension Inject 0.5 ml intramusc ularly one time only for Immunizat ions for 1 Day 12/19 completed Not Available Not Available Not Available Aleve (diclofenac ) 1 % topical gel Apply to knees and elbows topically every 12 hours as needed for Pain apply 4 grams to knees, apply 2 grams to elbows 2023 active Not Available Not Available Not Avai lable Vitals None Recorded Social History Question Answer Notes LastModified by Organizat ion Details LastModified Time Tobacco Smoking Status Current Every Day Smoker Not Available [facility] 09/23/2020 03:13:02 How Many Years Have You Smoked Tobacco? 50 [id number] Information not available 09/23/2020 Sex: Unknown Functional [...] Diagnosis/Indication Diagnosis SNOMED-CT Code Diagnosis ICD10 Code Diagnosis Note [address] T[address] Willian P[facility]rez at [facility] on [address] [place] [address] 09/01/2015 10:08:10 11/04/2015 03:49:10 Acute exacerbation of chronic obstructive pulmonary disease 048791617 J44.1 pt will continue her nebs treatments , Spiriva, prednisone taper, theodur, advair. continue on bipap, start PT/OT Gastroesop hageal reflux disease 309391959 K21.9 continue prilosec Bipolar disorder 5772588 4 F31.9 as pt requested we will increase abilify to 15 mg qd from 10 mg, continue lamictal as ordered which is not a change from [facility]. she can also see [facility] for this diagnosis. Insomnia 929549365 G47.0 0 pt has been on trazodone in the past, not now, will try remeron Tachycardia 9132715 R00. 0 pt was started on atenolol for elevated heart rate. is normal rate now. continue to monitor. [address] Main Office [address] [facility], [address], [address] [place] [address] 09/02/2015 17:39:53 10/09/2015 03:48:09 Acute exacerbation of chronic obstructive pulmonary disease 068597773 J44.1 acute on chronic, improving. Unclear why on all her inhalers while she is on oral prednisone and DuoNeb. We will hold all her inhalers until she has stopped her DuoNeb updrafts and her steroids have been tapered off. Tachycardia 1499906 R00. 0 responding to atenolol. Patient feels much improved Bipolar disorder 7126019 4 F31.9 no change her current medication s Chronic ob structive pulmonary disease 28264853 J44.9 chronic history, resume baseline meds once stable Health Concerns Section Related Observation LastModified by Organization Detai ls LastModified Time None Recorded Concern Status LastModified by Organization Details LastModified Time None Recorded Advance Directives Directive None Recorded Payers Encounter Date Sequence Insurance Name Policy Number Policy Garcia Covered Member ID Garcia Member ID Guarantor Name 09/01/2015 1 [place] [facility] Lluvia Cartagena [id number] Lluvia Cartagena 09/02/2015 1 [place] [facility] Lluvia Cartagena [id number] Lluvia Cartagena Notes Date Note Type Note Provider Name and Address Organization Details Recorded Time 09/01/2015 text/html HPI [place] [facility] [place] COPD exacerbation, acute on chronic resp failure, started on Bipap and atenolol for tachycardia? BLAS Rollins [address] [facility], [address], [place], [address], [email or web address] 09/01/2015 10:36:55 09/02/2015 text/html HPI 60-year-old female admitted for respiratory infection with negative chest x-ray, acute exacerbation of COPD, but he by hypoxemia and hypercapnia. She required ICU stay for administration of BiPAP. Chest x-ray did not show acute infiltrate. She was treated however with steroids, updraft and antibiotics. History of bipolar disorder as well is active smoker? Mohsen Dos Santos MD [address] [facility], [address], [place], [address], [email or web address] 09/02/2015 17:45:59 OBGyn Episode No OBEpisode recorded.
== END 2024-12-20 11:10 | disposition home or self-care (01) ==
PROVIDERS: PCP Student in an Organized Health Care Education/Training Program; Visit Provider Hospitalist
DX: J43.2 Centrilobular emphysema (principal); R91.1 Solitary pulmonary nodule; J96.11 Chronic respiratory failure with hypoxia; J96.12 Chronic respiratory failure with hypercapnia; F51.01 Primary insomnia; G47.33 Obstructive sleep apnea (adult) (pediatric)
CPT/HCPCS: 99214; G2211

== ENCOUNTER → 2024-12-20 10:36 | Outpatient (BNVA) | payer MEDICARE, MEDICAID, SELFPAY | PROVIDERS: PCP Student in an Organized Health Care Education/Training Program; Visit Provider Hospitalist | DX: J96.11 Chronic respiratory failure with hypoxia (principal); J96.12 Chronic respiratory failure with hypercapnia; J43.2 Centrilobular emphysema; G47.33 Obstructive sleep apnea (adult) (pediatric); F51.01 Primary insomnia; R91.1 Solitary pulmonary nodule | CPT/HCPCS: 99212 ==

== ENCOUNTER 2025-01-08 08:54 | Outpatient (REF) | payer MEDICARE, MEDICAID, SELFPAY | END 2025-01-08 08:55 | disposition home or self-care (01) | LOC: HO.CT 08:54 | PROVIDERS: PCP Student in an Organized Health Care Education/Training Program; Visit Provider Hospitalist | DX: R91.1 Solitary pulmonary nodule (principal) | CPT/HCPCS: 71250 ==

== ENCOUNTER → 2025-01-08 08:56 | Outpatient (BNV) | payer MEDICARE, MEDICAID, SELFPAY | PROVIDERS: PCP Student in an Organized Health Care Education/Training Program; Visit Provider Nuclear Medicine | DX: R91.1 Solitary pulmonary nodule (principal) | CPT/HCPCS: 71250 ==

== ENCOUNTER 2025-01-18 14:24 | Outpatient (AMB) | payer MEDICARE, MEDICAID, SELFPAY ==
--- NOTE | 2025-01-18 14:29 | MHC.OFFVIS ---
Vital Signs 01/18/25 14:30 Height 5 ft 1 in Weight 182 lb 15.739 oz BMI 34.6 BP 118/60 Blood Pressure Location Rt brachial Position Sitting Pulse 68 Pulse Source Pulse Oximeter Pulse Oximetry (%) 96 Oxygen Delivery Method Nasal Cannula Oxygen Flow Rate 3 Intake Visit Reasons: COPD follow-up Allergies codeine [Codeine] Allergy (Intermediate, Verified 01/18/25 14:36) RESTLESS/RASH haloperidol [Haldol] Allergy (Intermediate, Verified 01/18/25 14:36) Palpitations Sulfa (Sulfonamide Antibiotics) Allergy (Intermediate, Verified 01/18/25 14:36) HIVES HPI Comments Details: The patient is a 69-year-old woman with known history of COPD and chronic hypoxic and hypercarbic respiratory failure. She 1st did require a tracheostomy in the past and she had a prolonged hospitalization which she was able to be decannulated. She was then placed on noninvasive ventilation. The patient has been inconsistent with the usage. In January of this year the patient was admitted to the hospital with acute on chronic hypercarbic respiratory failure where her pCO2 was about 118 mmHg.. The patient was placed on noninvasive ventilation and her pH normalize and her average pCO2 was between 60-70. She was discharged to use her trilogy at home. At home she is still struggling with the noninvasive ventilator. She has a hard time getting used to it. Her [employer], [employer] will be performing overnight oximetry with an end-tidal CO2 to measure her see you to into appropriately adjust her noninvasive ventilator. She also has made mentioning that she has been more short of breath and she has had more hypoxia. In the office we did perform a 6 minutes walk test and she did require 2 L nasal cannula to maintain her pulse ox above 90%. Therefore, she will be using 3 L instead of to with activity and also with sleep. 04/15/2023 the patient is here for pulmonary follow-up visit. She still residing at the [facility]. She is using her trilogy noninvasive ventilator every night. However, she has been using more recently because she ended up in the hospital. She was having chest pressure sensation and dizziness. During the hospitalization at [facility] the patient states that she had an ABG done demonstrating a pCO2 58 and per report was okay. Therefore, will hold off on doing an ABG today. The patient has been fairly relatively well from a respiratory status. She does complaint of heaviness of the chest. On examination she is very diminished. Therefore likely has significant air trapping hyperinflation them every resulting in some chest pressure sensation. I did recommend she start using the trilogy with a sip and puff during the daytime to help her with the air trapping. The patient has also gained weight and that is also going to contribute to additional respiratory symptoms. The patient needs to start working on weight management with the help of the services provided. The patient is using her diuretics with good effect. No significant edema at this time. It is not clear if she is using the theophylline. She has been on multiple medications and has got to multiple institutions so therefore it is hard to know if those removed and if it was stopped for particular reason. We should recheck her theophylline levels if she is on theophylline. Otherwise restart the theophylline if she is off it and then recheck levels. She should stay within the low therapeutic range to help her with her severe COPD. Patient is using her oxygen at 3 L continues with good effect. Again, I reached out to the [employer], [employer], to rete she had uses sip and puff device that she can use during the daytime 06/17/2023 the patient is here for pulmonary follow-up visit. The patient has been doing well. She is looking now to move to a skilled nursing. in the meantime she is using her noninvasive ventilator. The noninvasive ventilator has been affecting beneficial. We did have her undergo a venous blood gas in appears that her pH is stable. She understands that if she does move to a skilled nursing she went to find a way to make sure that she continues use her noninvasive ventilator as prescribed. She continues on respiratory therapy. She continues oxygen supplementation at 3 L could would response. 09/20/2023 the patient has a telehealth visit today. Unfortunately she could not make it in from her residence. She has been more depressed lately. She has recently found out that she lost the services from her [facility]. There been with her for many years. In addition to that the patient has not been using her Trelegy ventilator. She is try to find out how long she can go without it. She was wondering if she can have blood work to see how well her CO2 is while she is not using it. However, I encouraged her to use it since we know that her baseline CO2 is already elevated and by using the ventilator she has better reserved in case she develops an exacerbation or an acute illness. The patient will start using her ventilator at nighttime. I did put him for blood work and she can always have the blood work done here or she can find out another means of doing a. But getting a blood gas will be difficult to do otherwise. The patient did recently have a respiratory illness with a virus. Was not COVID. She was not giving any prednisone or antibiotics. Her cough is not too bad. If the cough worsens with worsening congestion then using a antibiotic to minimize on the postviral bacterial infections would be reasonable. 12/23/2023 the patient is here for a pulmonary follow-up visit. Since we last spoke the patient did have a fall on her alf. She fractured multiple ribs and was admitted to [facility] with acute on chronic hypercarbic respiratory failure. She was placed on BiPAP and was able to stabilize. She did not require invasive ventilation. The patient had not been using her noninvasive ventilator at the alf. This is unfortunate. She understands the with her condition she relies on this therapy. The patient has been using now regularly since she was discharged from the hospital. She is looking to be placed in a skilled nursing. Therefore, she is making the arrangements. We did have her undergo a venous blood gas today and her acid-base status is stable and pCO2 is back to her baseline. Her bicarbonate always will be elevated to try to compensate for the hypercarbia and right now is at 37. she does continue to use her respiratory therapy as prescribed. She is also using oxygen continuously throughout the day with good effect. Once the patient is out of the alf to a skilled nursing will see about getting pulmonary function studies and starting outpatient pulmonary rehabilitation. Also to note while she was at [facility] she did have a CT scan of the chest that was personally by me. She had multiple rib fractures on the left 1 which was displaced. Also has small subcentimeter pulmonary nodule that will follow-up in a year's time. 02/21/2024 the patient is here for pulmonary follow-up visit. The patient overall has been doing well. She did move out of the alf in currently in a skilled nursing. She is getting a lot of support. She is taking all her medications. Although, the theophylline 400 mg is not available. I will try sending her a different does see that was available and also will check theophylline levels. The patient has been using her noninvasive ventilator at nighttime. The therapy has been affecting beneficial. We did have her get blood work and it appears that her bicarb is down to 32 which is very encouraging. The patient also has been using her oxygen at 3 L continues will keep a go above 88%. The patient is able to increase it to 4 L if her oxygen is dropping below 88%. Will go ahead and request pulmonary function studies and plan for pulmonary rehabilitation at this time. Will follow-up in 3 months or sooner if any new issues arise. 05/24/2024 the patient is here for a pulmonary follow-up visit. She was recently at [facility]. There was an issue with her oxygen. Now she is back to her skilled nursing. the having hard time regulating her oxygen. We did have her come in for 6 minute walk test. The patient needs 6 L of oxygen with activity and at least 2 L at rest. Although typically she needs more than 2 to keep her pulse ox above 90%. We did review her CT scan of the chest that she had while at [facility]. She has extensive emphysema which explains her very labile oxygen requirements. In addition to that she does have some pulmonary nodules that appear to have increased in size primarily in the left hemithorax. She will need a repeat CT scan in the next 3 months. She has minimal reserve. We did look at her previous PFTs demonstrating very severe COPD and severe diffusion impairment. however, the patient has been fairly well although she has had although severe disease. She has been using her noninvasive ventilator at nighttime. At least 6 hours. We did have her go for blood work including a venous gas demonstrating appears due to a baseline 61 mm of Hg. The patient does have some lower extremity edema. She will benefit from additional diuresis. In addition to that she is having increased wheezing chest tightness and cough. Therefore will send her a prednisone taper and also start an antibiotic. This will be to treat her for COPD exacerbation. She has participating in the pulmonary rehabilitation. She has fine the very affecting beneficial. She will continue for now. 07/06/2024 the patient is here for a pulmonary follow-up visit. She has been in an out of hospital. She has been trying to use her noninvasive ventilator more regularly. She understands it is a necessity for her to use it at least every night. She also continues with respiratory therapy. She has been responding well to the oxygen supplementation. Last blood gas was back the end of May demonstrating a pCO2 around 70 which is close to her baseline. She continues with respiratory therapy with good effect. Appears to have increasing lower extremity edema. Likely secondary to a component I will call pulmonale. Needs to continue with a low sodium diet and diuresis. CXR from 06/21/23 personally reviewed by me without any acute changes. 09/13/2024 the patient has a telehealth visit today. She is status post couple hospitalizations. Now she is at rehab and this is a telehealth. The patient initially was admitted to [facility] back at the end of June with acute on chronic respiratory failure. She was diagnosed with COVID a. During that admission she did have a CT a that I did evaluate. She did have an irregular nodular density in the left upper lobe likely infectious process although since his new and she is high risk for cancer we can not rule out malignancy. She was treated and then subsequently discharged back to her skilled nursing. Subsequently after that she went to [facility]. The details are not available but she likely had a tachyarrhythmia. She did require cardioversion. Afterwards the patient was transferred to [facility] which is currently getting rehabilitation. She feels weak. She has a hard time walking. Her oxygen requirements are still about the same 3 L at rest and 6 L with activity. She is also having issues with her noninvasive ventilator which she is waking up short of breath. Therefore, will have her have a repeat 6 minute walk test while she is there she should also continue with multi disciplinary therapies in addition to that will talk to respiratory there to see if they can tweak her ventilator to a higher pressure to help her with those difficult times. The patient plans to go back to her skilled nursing. 10/22/2024 the patient is here for hospital follow-up visit. She had been in the hospital with acute on chronic hypoxic and hypercarbic respiratory failure and subsequently went to [facility]. She is currently read some. She is not going back to the skilled nursing. She is trying to feel better enough to be able to go to her daughter's. There she could have some assistance from with the family and also some medical assistance. But she is still not clear. She does use the noninvasive ventilator. She did get an placement while at rest own. She is tolerating well. Will have her get a blood gas to see what her CO2 is. In addition to that which she check her theophylline level since she has noticed some tachycardia. She continues to feel weak. She feels like her legs want to give out when she is ambulating. Strikes me that could be related to her CO2 as she has had issues with falls and weakness when her CO2 elevates. 11/15/2024 the patient is here for pulmonary follow-up visit. Since we last spoke she went to [facility] with worsening shortness of breath. There she did have a CT scan of the chest which I personally reviewed. This was done 11/02/20[address] she [address] a [address] scan here at [facility] in the summer of 2023 and she had another CT scan at [facility] in 12/17/2023. I did review all of them. She does have a left upper lobe pulmonary nodule that appears to be worsening. There is significant concerned with his nodule for a smoldering infection process such as a fungal infection could be a localized bacterial infection but could also be a malignant process. The patient understands that her lung capacity significantly limited and with end-stage pulmonary disease and we difficult to do any invasive or semi-invasive procedures for diagnostic purposes. Therefore, rather treat her empirically. Will go ahead and request blood work including galactomannan and other laboratories. And will go ahead and treat her for potential staph infection or fungal infection. Plan to repeat the CT scan a couple months. If the area still present then will have to discuss how to proceed. Again, the patient is high risk for any intervention. In the meantime she has been using the noninvasive ventilator. The ventilator has been affecting beneficial although she continues to have elevations in the CO2. Will have to adjusted accordingly. The patient also may have a component of sleep apnea and an in-lab sleep study may be helpful as well to further address any significant sleep apnea and subsequently asleep PAP titration study to properly treat her underlying sleep apnea. She will continue with current respiratory therapy as prescribed. She will continue with the oxygen as prescribed. 12/20/2024 the patient is here for a pulmonary follow-up visit. Overall she is doing well. She is moving out of bed some going with her daughter. She is excited. In the meantime she has been using her noninvasive ventilator every night. The therapy has been affecting beneficial although she feels like sometimes she wakes up breathless and sometimes her oxygen requirements are increased. We will request a download in order to be able to adjust the machine accordingly with the help of [employer]. In addition to that she was admitted briefly to [facility] with significant anemia. She was placed on iron and now she is a little constipated. She is going to monitor closely her anemia specially because of her significant respiratory disease the anemia will ultimately resulting significantly worsening respiratory symptoms. If we not able to adjust her noninvasive ventilator appropriately that we can always consider a titration study. She also had an abnormal CT scan back in October and we had requested repeat. In the meantime she went to [facility] she did have a chest x-ray which is reassuring. Demonstrating emphysema and chronic stable findings. 01/18/2025 the patient is here for a pulmonary follow-up visit. Overall she is doing better. She was sickly with flu-like symptoms but now she is back to her baseline. She is using her noninvasive ventilation at nighttime although she still trying to find the right mask. We did have a phone small air touch F20 mask available. Seems to fit well and I believe she will do better with a full mask so it does not make as much noise. The patient also has been using her respiratory therapy. I will send all her medications to the pharmacy. In addition to this the patient did have a CT scan of the chest that we personally certainly reviewed and compared to her previous CT from from June. It appears that the masslike density in the left upper lobe is getting bigger. It is concerning for malignancy specially since she was treated for fungal infections and she has been treated for infectious bacterial infections as well without any evidence of any improvement. Therefore, will go ahead and request a PET scan to see if there is any significant evidence of hypermetabolic activity. Any kind of biopsy would be dangerous because of her significant respiratory failure. We can also consider stereotactic radiation to the area if is concerning enough on the PET scan without a biopsy. Will plan to follow-up after her PET scan several weeks. [facility] Medical History (Updated 01/18/25 @ 16:41 by Caden Acharya MD) Lung mass RITA (obstructive sleep apnea) Cor pulmonale Rib fractures Pulmonary nodule Tubular adenoma of colon (~2006) Osteopenia (~2012) Bronchopneumonia Chest pain Chronic respiratory alkalosis ILD (interstitial lung disease) CO2 retention Acute on chronic respiratory failure with hypoxia and hypercapnia Bipolar depression Eczema Limb swelling Insomnia Bronchitis Vasomotor rhinitis COPD (chronic obstructive pulmonary disease) Chronic respiratory failure Fall Acute metabolic encephalopathy Acute and chronic respiratory failure with hypercapnia Surgical History History of carpal tunnel surgery (~2000) History of ventral hernia repair (~2003) History of left inguinal hernia repair (~1995) History of tracheostomy (~2016) History of cataract surgery (~2018) History of colonoscopy Family History Other Hypertension Social History Household Members: None Household Members Other:: skilled nursing Housing: Other Housing Other:: skilled nursing Are you a primary direct care worker to a significant other at home: No Do you presently have visiting nurse or other home services: Yes (skilled nursing services) Alcohol intake: former Patient Tobacco Use Status: Former Tobacco user Tobacco use type: Cigarette Years Smoked: 20+ years e-Cigarette/Vaping Use: Never Used Second Hand Smoke Exposure: No Advance Directives Date on File: 11/30/21 service: No Current occupational status: disabled Review of Systems Const Reports fatigue, Denies night sweats and Reports weight gain ENT Denies change in voice, Denies lip swelling, Denies mouth pain, Reports nasal congestion, Reports nasal discharge and Denies tongue swelling Card Denies chest pain, Reports pedal edema, Denies leg edema, Reports dyspnea and Reports dyspnea on exertion Resp Denies change in phlegm color, Denies chest congestion, Reports cough, Reports dyspnea, Reports dyspnea on exertion and Reports wheezing GI Denies abdominal pain Musc Denies no additional complaints, Reports abnormal gait and Reports muscle weakness Skin/Breast Reports erythema and Reports skin swelling Neuro Denies Neuro-related abnormal movements, Reports abnormal gait, Reports memory loss and Reports tremor(s) Psych Reports depression and Reports memory loss Endo Reports fatigue Gerson/Lymph Denies easy bleeding and Denies lymphadenopathy Aller/Immun Denies lip swelling, Denies tongue swelling and Reports wheezing Physical Exam Vital Signs: Last Vital Signs Pulse 68 01/18/25 14:30 BP 118/60 01/18/25 14:30 Pulse Ox 96 01/18/25 14:30 Oxygen Delivery Method Nasal Cannula 01/18/25 14:30 Oxygen Flow Rate 3 01/18/25 14:30 BMI result Body Mass Index 34.6 Last Vital Signs Temp 98.2 F 04/15/22 15:12 Pulse 97 04/15/22 15:26 Resp 18 04/15/22 15:26 BP 144/69 H 04/15/22 15:12 Pulse Ox 94 04/15/22 15:12 Oxygen Flow Rate 3 04/13/22 08:52 BMI result Body Mass Index 31.3 Const General: alert Neck Neck: Yes normal visual inspection, Yes full ROM and Yes no lymphadenopathy Chest Chest palpation & inspection: normal inspection of the chest Resp Effort & Inspection: normal respiratory effort and prolonged expiratory phase Auscultation: diminished lung sounds Cardio Rate: regular rate Rhythm: regular rhythm Heart sounds: S1 normal heart sound present and S2 normal heart sound present GI Palpation (GI): Soft to palpation and nontender Auscultation: normal bowel sounds Skin General skin exam: rashes and/or lesions noted Assessment & Plan Assessment & Plan (1) Lung mass: Code(s): R91.8 - Other nonspecific abnormal finding of lung field Category: Medical (2) COPD (chronic obstructive pulmonary disease): Code(s): J44.9 - Chronic obstructive pulmonary disease, unspecified Category: Medical Qualifiers: COPD type: emphysema Emphysema type: centrilobular Qualified Code(s): J43.2 - Centrilobular emphysema (3) Pulmonary nodule: Comment: increasing in size CELINA concerning for malignancy of local infection. High risk for any diagnostic interventions Code(s): R91.1 - Solitary pulmonary nodule Category: Medical (4) Chronic respiratory failure: Code(s): J96.10 - Chronic respiratory failure, unspecified whether with hypoxia or hypercapnia Category: Medical Qualifiers: Respiratory failure complication: hypoxia and hypercapnia Qualified Code(s): J96.11 - Chronic respiratory failure with hypoxia; J96.12 - Chronic respiratory failure with hypercapnia (5) Insomnia: Code(s): G47.00 - Insomnia, unspecified Category: Medical Qualifiers: Insomnia type: primary Qualified Code(s): F51.01 - Primary insomnia (6) Respiratory failure: Code(s): J96.90 - Respiratory failure, unspecified, unspecified whether with hypoxia or hypercapnia Category: Medical Qualifiers: Chronicity: chronic Respiratory failure complication: hypoxia and hypercapnia Qualified Code(s): J96.11 - Chronic respiratory failure with hypoxia; J96.12 - Chronic respiratory failure with hypercapnia (7) Chronic hypoxic respiratory failure: Code(s): J96.11 - Chronic respiratory failure with hypoxia Category: Medical (8) RITA (obstructive sleep apnea): Code(s): G47.33 - Obstructive sleep apnea (adult) (pediatric) Category: Medical Plan continue nighttime noninvasive ventilator use. Will increase presures. Request PET scan to better assess pulmonary mass. High risk for a biopsy. PEt will hopefully provide with alternative biopsy options. Also can consider SBRT even without a biopsy if it is abnormal enough. continue Breo continue Incruse continue respiratory therapy oxygen at 3 liters/minute at rest and 6L/minute weight management F/U 4-6 weeks Orders: Orders PET CT fusion skull to thigh 01/18/25 R91.8 - Other nonspecific abnormal finding of lung field Coding Level of Care Code Est Pt Level 5 (67152) Complex EM visit Add On G2211 Diagnoses Lung mass R91.8 Centrilobular emphysema J43.2 COPD type: emphysema Emphysema type: centrilobular Pulmonary nodule R91.1 Chronic respiratory failure with hypoxia and hypercapnia J96.11; J96.12 Respiratory failure complication: hypoxia and hypercapnia Primary insomnia F51.01 Insomnia type: primary Chronic respiratory failure with hypoxia and hypercapnia J96.11; J96.12 Chronicity: chronic Respiratory failure complication: hypoxia and hypercapnia Chronic hypoxic respiratory failure J96.11 RITA (obstructive sleep apnea) G47.33 Time Spent (min) 45
[2025-01-18 14:30] VITALS: BP 118/60; PULSE 68; O2SAT 96; BMI 34.6
--- OUTSIDE RECORDS SUMMARY | 2025-01-18 14:47 | XMS_ITS | Encounter Summary ---
Author Organization [facility] Address [address] [place] [address] Care Team Providers Care Head Bookkeeper Name Role Phone Yann Manzanares MD Primary Care Provider [phone] Encounter Details Date Type Department Care Team (Late st Contact Info) Description 10/15/2024 Lab Requisition [facility] - Main Lab [address] [facility] [place] [address] Alley San NP [address] [facility] [place] [address] Chronic obstructive pulmonary disease, unspecified (CMS/HCC) Social History Tobacco Use Types Packs/Day Years Used Date Smoking Tobacco: Former Cigarettes Smokeless Tobacco: Never Alcohol Use Standard Drinks/Week Comments Not Currently 0 (1 standard drink = 0.6 oz pur e alcohol) Comments Unknown Sex and Gender Information Value Date Recorded Sex Assigned at Not on file Legal Sex Female 9:53 PM EST Gender Identity Not on file Sexual Orientation Not on file documented as of this encounter Plan of Treatment Not on file documented as of this encounter Procedures Procedure Name Priority Date/Time Associated Diagnosis Comments COMPLETE BLOOD COUNT Routine 10/15/2024 8:35 AM EST Chronic obstructive pulmonary disease, unspecified (CMS/HCC) BASIC METABOLIC PANEL Routine 10/15/2024 8:35 AM EST Chronic obstructive pulmonary disease, unspecified (CMS/HCC) documented in this encounter Results * (ABNORMAL) Basic metabolic panel (10/15/2024 8:35 AM EST) Sodium 140 133 - 145 mmol/L LAB CHEMISTRY METHOD 10/15/2024 1:16 PM [facility] Potassium 3.8 3.5 - 5.5 mmol/L LAB CHEMISTRY METHOD 10/15/2024 1:16 PM [facility] Chloride 90(L) 96 - 110 mmol/L LAB CHEMISTRY METHOD 10/15/2024 1:16 PM [facility] CO2 40(H) 21 - 32 mmol/L LAB CHEMISTRY METHOD 10/15/2024 1:16 PM [facility] Anion Gap 10 3 - 11 LAB CHEMISTRY METHOD 10/15/2024 1:16 PM [facility] Glucose 81 70 - 100 mg/dL LAB CHEMISTRY METHOD 10/15/2024 1:16 PM [facility] BUN 15 5 - 25 mg/dL LAB CHEMISTRY METHOD 10/15/2024 1:16 PM [facility] Creatinine 1.00 0.50 - 1.10 mg/dL LAB CHEMISTRY METHOD 10/15/2024 1:16 PM [facility] eGFR 61 >=60 mL/min/1. 73m2 LAB CHEMISTRY METHOD 10/15/2024 1:16 PM [facility] Comment:Calculation based on the??Chronic Kidney Disease Epidemiology Collaboration (CKD-EPI) equation refit??without adjustment for race. BUN/Creatinine Ratio 15.0 LAB CHEMISTRY METHOD 10/15/2024 1:16 PM [facility] Calcium 9.6 8.5 - 10.5 mg/dL LAB CHEMISTRY METHOD 10/15/2024 1:16 PM [facility] Blood Venous blood specimen / Unknown Venipuncture / Unknown 10/15/2024 8:35 AM EST 10/15/2024 11:13 AM EST Alley San NP LAB BLOOD ORDERABLES Final Re sult [facility] [address] [place] [address], [place] [phone] * (ABNORMAL) Complete blood count (10/15/2024 8:35 AM EST) [facility] WBC 8.3 4.8 - 10.8 K/mcL LAB HEMETOLOGY METHOD 10/15/2024 12:51 PM EST [facility] RBC 3.80 3.80 - 4.80 M/mcL LAB HEMETOLOGY METHOD 10/15/2024 12:51 PM [facility] Hemoglobin 10.7(L) 11.5 - 16.0 g/dL LAB HEMETOLOGY METHOD 10/15/2024 12:51 PM [facility] Hematocrit 37.8 35.0 - 47.0 % LAB HEMETOLOGY METHOD 10/15/2024 12:51 PM [facility] MCV 98.4(H) 79.0 - 98.0 FL LAB HEMETOLOGY METHOD 10/15/2024 12:51 PM [facility] MCH 27.9 27.0 - 32.0 pcg LAB HEMETOLOGY METHOD 10/15/2024 12:51 PM [facility] MCHC 28.3(L) 32.0 - 37.0 g/dL LAB HEMETOLOGY METHOD 10/15/2024 12:51 PM [facility] RDW 15.2(H) 11.0 - 15.0 % LAB HEMETOLOGY METHOD 10/15/2024 12:51 PM [facility] Platelets 474(H) 130 - 400 K/mcL LAB HEMETOLOGY METHOD 10/15/2024 12:51 PM [facility] MPV 9.6 7.0 - 11.0 FL LAB HEMETOLOGY METHOD 10/15/2024 12:51 PM [facility] NRBC 0.0 <1.0 % LAB HEMETOLOGY METHOD 10/15/2024 12:51 PM [facility] NRBC Absolute 0.00 <0.10 K/mcL LAB HEMETOLOGY METHOD 10/15/2024 12:51 PM EST [facility] Blood Venous blood specimen / Unknown Venipuncture / Unknown 10/15/2024 8:35 AM EST 10/15/2024 11:13 AM EST Alley San [facility] LAB BLOOD ORDERABLES Final Re sult [facility] [address] [place] [address], documented in this encounter Visit Diagnoses Diagnosis Chronic obstructive pulmonary disease, unspecified (CMS/HCC) documented in this encounter Care Teams Head Bookkeeper Relationship Specialty Start Date End Date Yann Manzanares MD [address] [place] [address] PCP - General 02/08/24 documented as of this encounter
--- OUTSIDE RECORDS SUMMARY | 2025-01-18 14:47 | XMS_ITS | Encounter Summary ---
Author Organization [facility] Address [address] [place] [address] Care Team Providers Care Maintenance Mechanic Supervisor Name Role Phone Yann Manzanares MD Primary Care Provider [phone] Encounter Details Date Type Department Care Team (Late st Contact Info) Description 12/11/2024 Lab Requisition [facility] - Main Lab [address] [facility] [place] [address] Glenroy Goff MD [address] [place] [address] [address] [place], [phone] Chronic obstructive pulmonary disease, unspecified (CMS/HCC) Social [...] Associated Diagnosis Comments COMPLETE BLOOD COUNT Routine 12/11/2024 6:30 AM EST Chronic obstructive pulmonary disease, unspecified (CMS/HCC) BASIC METABOLIC PANEL Routine 12/11/2024 6:30 AM EST Chronic obstructive pulmonary disease, unspecified (CMS/HCC) documented in this encounter Results * (ABNORMAL) Basic metabolic panel (12/11/2024 6:30 AM EST) Sodium 131(L) 133 - 145 mmol/L LAB CHEMISTRY METHOD 12/11/2024 11:11 AM [facility] Potassium 4.1 3.5 - 5.5 mmol/L LAB CHEMISTRY METHOD 12/11/2024 11:11 AM [facility] Chloride 84(L) 96 - 110 mmol/L LAB CHEMISTRY METHOD 12/11/2024 11:11 AM [facility] CO2 43(HH) 21 - 32 mmol/L LAB CHEMISTRY METHOD 12/11/2024 11:11 AM [facility] Anion Gap 4 3 - 11 LAB CHEMISTRY METHOD 12/11/2024 11:11 AM [facility] Glucose 89 70 - 100 mg/dL LAB CHEMISTRY METHOD 12/11/2024 11:11 AM [facility] BUN 17 5 - 25 mg/dL LAB CHEMISTRY METHOD 12/11/2024 11:11 AM [facility] Creatinine 0.83 0.50 - 1.10 mg/dL LAB CHEMISTRY METHOD 12/11/2024 11:11 AM [facility] eGFR 76 >=60 mL/min/1. 73m2 LAB CHEMISTRY METHOD 12/11/2024 11:11 AM [facility] Comment:Calculation based on the??Chronic Kidney Disease Epidemiology Collaboration (CKD-EPI) equation refit??without adjustment for race. BUN/Creatinine Ratio 20.5 LAB CHEMISTRY METHOD 12/11/2024 11:11 AM [facility] Calcium 8.6 8.5 - 10.5 mg/dL LAB CHEMISTRY METHOD 12/11/2024 11:11 AM [facility] Blood Venous blood specimen / Unknown Venipuncture / Unknown 12/11/2024 6:30 AM EST 12/11/2024 9:22 AM EST us Glenroy Goff MD LAB BLOOD ORDERABLES Final Resul t [facility] [address] [place] [address], * (ABNORMAL) Complete blood count (12/11/2024 6:30 AM EST) [facility] WBC 7.2 4.8 - 10.8 K/mcL LAB HEMETOLOGY METHOD 12/11/2024 11:11 AM [facility] RBC 3.00(L) 3.80 - 4.80 M/mcL LAB HEMETOLOGY METHOD 12/11/2024 11:11 AM [facility] Hemoglobin 7.5(L) 11.5 - 16.0 g/dL LAB HEMETOLOGY METHOD 12/11/2024 11:11 AM [facility] Hematocrit 26.9(L) 35.0 - 47.0 % LAB HEMETOLOGY METHOD 12/11/2024 11:11 AM [facility] MCV 89.4 79.0 - 98.0 FL LAB HEMETOLOGY METHOD 12/11/2024 11:11 AM [facility] MCH 24.9(L) 27.0 - 32.0 pcg LAB HEMETOLOGY METHOD 12/11/2024 11:11 AM [facility] MCHC 27.9(L) 32.0 - 37.0 g/dL LAB HEMETOLOGY METHOD 12/11/2024 11:11 AM [facility] RDW 15.7(H) 11.0 - 15.0 % LAB HEMETOLOGY METHOD 12/11/2024 11:11 AM [facility] Platelets 399 130 - 400 K/mcL LAB HEMETOLOGY METHOD 12/11/2024 11:11 AM [facility] MPV 10.0 7.0 - 11.0 FL LAB HEMETOLOGY METHOD 12/11/2024 11:11 AM [facility] NRBC 0.0 <1.0 % LAB HEMETOLOGY METHOD 12/11/2024 11:11 AM EST [facility] NRBC Absolute 0.00 <0.10 K/mcL LAB HEMETOLOGY METHOD 12/11/2024 11:11 AM EST [facility] Blood Venous blood specimen / Unknown Venipuncture / Unknown 12/11/2024 6:30 AM EST 12/11/2024 9:22 AM EST us Glenroy Goff MD LAB BLOOD ORDERABLES Final Resul t [facility] [address] [place] [address], documented in this encounter Visit Diagnoses Diagnosis Chronic obstructive pulmonary disease, unspecified (CMS/HCC) documented in this encounter Care Teams Maintenance Mechanic Supervisor Relationship Specialty Start Date End Date Yann Manzanares MD [address] [facility] [address] [place] [id number] PCP - General 02/08/24 documented as of this encounter
--- OUTSIDE RECORDS SUMMARY | 2025-01-18 14:47 | XMS_ITS | Clinical Summary ---
Author Organization [facility] Address [address] [place] [address] Care Team Providers Care Manager Fire Name Role Phone Debra Ji MD Primary Care Provider [phone] Allergies Active Allergy Reactions Criticality Noted Date Comments Codeine 06/27/2017 Haloperidol 06/27/2017 Fluoxetine 06/27/2017 Sulfa Antibiotics 06/27/2017 Medications Medication Sig Dispensed Refills Start Date End Date Status albuterol (PROVENTIL) (2.5 MG/3ML) 0.083% nebulizer solution Take 2.5 mg by nebulization every 6 (six) hours as needed for wheezing. 0 Active albuterol (PROAIR HFA) 108 (90 BASE) MCG/ACT inhaler Inhale 2 puffs into the lungs every 6 (six) hours as needed for wheezing. 0 Active ARIPiprazole (ABILIFY) 15 MG tablet Take 15 mg by mouth daily. 0 Active azithromycin (ZITHROMAX) 250 MG tablet Take 250 mg by mouth 2 (two) times a day. 0 Active buPROPion (WELLBUTRIN SR) 200 MG 12 hr tablet Take 200 mg by mouth 2 (two) times a day. 0 Active calcitonin (salmon) (MIACALCIN) nasal spray 200 units/actuation spray or apply 1 spray inside Nose daily. 0 Active docusate sodium (COLACE) 100 MG capsule Take 100 mg by mouth 2 (two) times a day. 0 Active Ergocalciferol (VITAMIN D2 PO) Take 50,000 Units by mouth. 0 Active furosemide (LASIX) 20 MG tablet Take 20 mg by mouth daily. Take 1 tablet daily on Tuesday, Tuesday and Tuesday 0 Active ibuprofen (ADVIL,MOTRIN) 200 MG tablet Take 400 mg by mouth every 6 (six) hours as needed for pain. 0 Active LORazepam (ATIVAN) 0.5 MG tablet Take 0.5 mg by mouth daily. 0 Active mirtazapine (REMERON) 15 MG tablet Take 15 mg by mouth every night at bedtime. 0 Active lamoTRIgine (LAMICTAL) 150 MG tablet Take 150 mg by mouth 2 (two) times a day. 0 Active lamoTRIgine (LAMICTAL) 200 MG tablet Take 200 mg by mouth daily. 0 Active montelukast (SINGULAIR) 10 MG tablet Take 10 mg by mouth every night at bedtime. 0 Active nicotine (NICODERM CQ) 21 MG/24HR Place 1 patch onto the skin daily. 0 Active polyethylene glycol (MIRALAX) packet Take 17 g by mouth daily. 0 Active predniSONE (DELTASONE) tablet 10 mg Take 10 mg by mouth every morning with breakfast. 0 Active senna (SENOKOT) 8.6 MG tablet Take 1 tablet by mouth daily. 0 Active tiotropium (SPIRIVA) [address] 18 mcg into inhaler and inhale daily. 0 Active vilazodone HCl (VIIBRYD) 20 MG TABS tablet Take 40 mg by mouth daily. 0 Active zoster vaccine live, PF, (ZOSTAVAX) 36237 UNT/0.65ML injection Inject 0.65 mL under the skin once. 0 Active Fluticasone Furoate-Vilanterol 200-25 MCG/INH AEPB Inhale into the lungs. 0 Active Active Problems Problem Noted Date Diagnosed Date Thrombocytosis 06/27/2017 Social History Tobacco Use Types Packs/Day Years Used Date Smoking Tobacco: Every Day Smokeless Tobacco: Never Alcohol Use Standard Drinks/Week Comments No 0 (1 standard drink = 0.6 oz pur e alcohol) Sex and Gender Information Value Date Recorded Sex Assigned at Not on file Gender Identity Not on file Sexual Orientation Not on file Job Start Date Occupation Industry Not on file Not on file Not on file Last Filed Vital Signs Vital Sign Reading Time Taken Comments Blood Pressure 110/82 06/27/2017 2:35 PM EDT Pulse 92 06/27/2017 2:35 PM EDT Temperature - - Respiratory Rate - - Oxygen Saturation - - Inhaled Oxygen Concentration - - Weight 59.4 kg (131 lb) 06/27/2017 2:35 PM EDT Height 157.5 cm (5' 2 ) 06/27/2017 2:35 PM EDT Body Mass Index 23.96 06/27/2017 2:35 PM EDT Plan of Treatment Health Maintenance Due Date Last Done Comments Hepatitis C Screening 1954 COVID-19 Vaccine (#1) 1954 Pneumococcal Vaccine (1 of 2 - PCV) 1960 Depression Screening 1966 Preventative Health Evaluation 1972 DTap / Tdap / Td (1 - Tdap) 1973 Colon Cancer Screening (Colonoscopy) 1999 Breast Cancer Screening (Mammogram) 2004 Shingrix-Zoster Vaccine (1 of 2) 2004 Fall Risk Assessment 2019 Osteoporosis Screening (DEXA Scan) 2019 Influenza Vaccine (#1) 2024 RSV Adult > 60+ Yrs or Pregn ant (1 - 1-dose 75+ series) 2029 Hepatitis B Vaccines Aged Out No long er eligible based on patient's age to complete this topic RSV Ped < 20 months Aged Out No longe r eligible based on patient's age to complete this topic Care Teams Manager Fire Relationship Specialty Start Date End Date Debra Ji MD PCP - General Internal Medicine 06/27/17
--- OUTSIDE RECORDS SUMMARY | 2025-01-18 14:47 | XMS_ITS | Encounter Summary ---
Author Organization [facility] [address] Address [address] [place] [address] Care Team Providers Care Freight Loader Name Role Phone Yann Manzanares MD Primary Care Provider [phone] Encounter Details Date Type Department Care Team (Late st Contact Info) Description 10/27/2024 Lab Requisition [facility] - Main Lab [address] [facility] [place] [address] Janice Núñez MD [address] [place] [address] Chronic obstructive pulmonary disease, unspecified (CMS/HCC) Social [...] Associated Diagnosis Comments COMPLETE BLOOD COUNT Routine 10/29/2024 8:00 AM EST Chronic obstructive pulmonary disease, unspecified (CMS/HCC) BASIC METABOLIC PANEL Routine 10/29/2024 8:00 AM EST Chronic obstructive pulmonary disease, unspecified (CMS/HCC) documented in this encounter Results * (ABNORMAL) Basic metabolic panel (10/29/2024 8:00 AM EST) Sodium 138 133 - 145 mmol/L LAB CHEMISTRY METHOD 10/29/2024 2:01 PM [facility] Potassium 3.6 3.5 - 5.5 mmol/L LAB CHEMISTRY METHOD 10/29/2024 2:01 PM [facility] Chloride 91(L) 96 - 110 mmol/L LAB CHEMISTRY METHOD 10/29/2024 2:01 PM [facility] CO2 40(H) 21 - 32 mmol/L LAB CHEMISTRY METHOD 10/29/2024 2:01 PM [facility] Anion Gap 7 3 - 11 LAB CHEMISTRY METHOD 10/29/2024 2:01 PM [facility] Glucose 86 70 - 100 mg/dL LAB CHEMISTRY METHOD 10/29/2024 2:01 PM [facility] BUN 15 5 - 25 mg/dL LAB CHEMISTRY METHOD 10/29/2024 2:01 PM [facility] Creatinine 0.89 0.50 - 1.10 mg/dL LAB CHEMISTRY METHOD 10/29/2024 2:01 PM [facility] eGFR 70 >=60 mL/min/1. 73m2 LAB CHEMISTRY METHOD 10/29/2024 2:01 PM [facility] Comment:Calculation based on the??Chronic Kidney Disease Epidemiology Collaboration (CKD-EPI) equation refit??without adjustment for race. BUN/Creatinine Ratio 16.9 LAB CHEMISTRY METHOD 10/29/2024 2:01 PM [facility] Calcium 9.3 8.5 - 10.5 mg/dL LAB CHEMISTRY METHOD 10/29/2024 2:01 PM [facility] Blood Venous blood specimen / Unknown Venipuncture / Unknown 10/29/2024 8:00 AM EST 10/29/2024 11:30 AM EST us Janice Núñez MD LAB BLOOD ORDERABLES Final Resul t [facility] [address] [place] [address], * (ABNORMAL) Complete blood count (10/29/2024 8:00 AM EST) [facility] WBC 6.3 4.8 - 10.8 K/mcL LAB HEMETOLOGY METHOD 10/29/2024 12:10 PM [facility] RBC 3.70(L) 3.80 - 4.80 M/mcL LAB HEMETOLOGY METHOD 10/29/2024 12:10 PM [facility] Hemoglobin 10.1(L) 11.5 - 16.0 g/dL LAB HEMETOLOGY METHOD 10/29/2024 12:10 PM [facility] Hematocrit 35.2 35.0 - 47.0 % LAB HEMETOLOGY METHOD 10/29/2024 12:10 PM [facility] MCV 94.1 79.0 - 98.0 FL LAB HEMETOLOGY METHOD 10/29/2024 12:10 PM [facility] MCH 27.0 27.0 - 32.0 pcg LAB HEMETOLOGY METHOD 10/29/2024 12:10 PM [facility] MCHC 28.7(L) 32.0 - 37.0 g/dL LAB HEMETOLOGY METHOD 10/29/2024 12:10 PM [facility] RDW 14.5 11.0 - 15.0 % LAB HEMETOLOGY METHOD 10/29/2024 12:10 PM [facility] Platelets 504(H) 130 - 400 K/mcL LAB HEMETOLOGY METHOD 10/29/2024 12:10 PM [facility] MPV 9.3 7.0 - 11.0 FL LAB HEMETOLOGY METHOD 10/29/2024 12:10 PM [facility] NRBC 0.0 <1.0 % LAB HEMETOLOGY METHOD 10/29/2024 12:10 PM EST [facility] NRBC Absolute 0.00 <0.10 K/mcL LAB HEMETOLOGY METHOD 10/29/2024 12:10 PM EST [facility] Blood Venous blood specimen / Unknown Venipuncture / Unknown 10/29/2024 8:00 AM EST 10/29/2024 11:30 AM EST us Janice Núñez MD LAB BLOOD ORDERABLES Final Resul t [facility] [address] [place] [address], documented in this encounter Visit Diagnoses Diagnosis Chronic obstructive pulmonary disease, unspecified (CMS/HCC) documented in this encounter Care Teams Freight Loader Relationship Specialty Start Date End Date Yann Manzanares MD [address] [address] PCP - General 02/08/24 documented as of this encounter
--- OUTSIDE RECORDS SUMMARY | 2025-01-18 14:47 | XMS_ITS | Data Portability ---
Author Organization [facility], Main Office Address [address], [address] [place] [address] Care Team Providers Care Drum Carrier Name Role Phone [facility] OTHER Assessment Encounter Date Assessment Date Assessment LastModified by Organization Details LastModified Time 12/17/2024 12/17/2024 [facility] 12/13: Na 136-K 3.8-Bun 13-Cr 0.7-wbc 7.5-hgb 8.4-hct 28.5-plt 510 [email or web address] Not available 12/23/2024 14:46:10 12/25/2024 12/25/2024 Hosp Labs 12/13: Na 136-K 3.8-Bun 13-Cr 0.7-wbc 7.5-hgb 8.4-hct 28.5-plt 510 [email or web address] Not available 12/26/2024 07:11:06 Plan of Treatment Reminders Order Date Submit [...] on chronic hypoxemi c respirat ory failure [id number] Completed 202412/20/2024 Not Available [facility] 09:41:58 Acute exacerba tion of chronic obstruct sophie pulmonar y disease 336261803 Completed 202312/20/2024 Not Available [facility] 5 09:42:00 Fracture of multiple ribs 3243316 Completed 202312/20/2024 Not Available [facility] 5 09:42:01 Acidosis 67750402 Completed 202312/20/2024 Not Available [facility] 5 09:42:02 Acute on chronic hypercap juan respirat ory failure 77350418278 06 Completed 202312/20/2024 Not Available [facility] 5 09:42:03 Acute exacerba tion of chronic obstruct sophie pulmonar y disease 821057720 Completed 202112/20/2024 Not Available [facility] 5 09:42:03 Congesti ve heart failure 83384053 Completed 202312/20/2024 Not Available [facility] 5 09:42:04 Acute on chronic hypoxemi c respirat ory failure 85385808952 355387 Completed 202312/20/2024 Not Available [facility] 5 09:42:06 Muscle weakness 67038671 Completed 202112/20/2024 Not Available [facility] 5 09:42:06 Chronic hypercap juan respirat ory failure 895113321 Completed 202312/20/2024 Not Available [facility] 5 09:42:43 Acute pulmonar y edema 14931025 Completed 202312/20/2024 Not Available [facility] 5 09:42:08 Difficul ty walking 808139723 Completed 202212/20/2024 Not Available [facility] 5 09:42:08 Pneumoni a 620916952 Completed 202312/20/2024 Not Available [facility] 5 09:42:09 Congesti ve heart failure 16289129 Completed 202312/20/2024 Not Available [facility] 5 09:42:10 Intersti tial lung disease 451807707 Completed 202112/20/2024 Not Available [facility] 5 09:42:11 Need for personal care assistan ce 55265718836 986835 Completed 202312/20/2024 Not Available [facility] 5 09:42:11 Fall Completed 202212/20/2024 Not Available [facility] 5 09:42:12 Orophary ngeal dysphagi a 30396094 Completed 202112/20/2024 Not Available [facility] 5 09:42:13 Metaboli c encephal opathy 01254976 Completed 202112/20/2024 Not Available [facility] 5 09:42:14 Dyspnea 470767549 Completed 202112/20/2024 Not Available [facility] 5 09:42:14 Anemia 520679184 Active 2024 Not Available [facility] 5 09:42:15 Epilepsy 47858984 Completed 202412/23/2024 BLAS GONZÁLES [address] [facility] [address], [place], [address] , [facility] [employer] 5 13:43:54 Muscle weakness 15791076 Completed 202312/20/2024 Not Available [facility] 5 09:42:16 Difficul ty walking 565101071 Completed 202312/20/2024 Not Available [facility] 5 09:42:17 Chronic cor pulmonal e 86755107 Completed 202312/20/2024 Not Available [facility] 5 09:42:17 Atopic dermatit is 17349832 Completed 202312/20/2024 Not Available [facility] 5 09:42:18 Acute exacerba tion of chronic obstruct sophie pulmonar y disease 031842215 Completed 202312/20/2024 Not Available [facility] 5 09:42:19 Congesti ve heart failure 60410513 Active 2023 Not Available [facility] 5 09:42:19 Paroxysm al atrial fibrilla tion 767639945 Active 2023 Not Available [facility] 5 09:42:20 Major depressi on, single episode 70898233 Completed 202312/20/2024 Not Available [facility] 5 09:42:45 Posttrau matic stress disorder 27675696 Active 2023 Not Available [facility] 5 09:42:20 Dependen ce on enabling machine or device 962823599 Completed 202312/23/2024 IVAP BLAS GONZÁLES [address] [facility] [address], [place], [address] , [facility] 5 13:43:54 Dependen ce on suppleme ntal oxygen 09709525624 7 Completed 202312/20/2024 Not Available [facility] 5 09:42:37 Pulmonar y emphysem a 87105907 Completed 202312/23/2024 BLAS GONZÁLES [address] [facility], [address], [place], [address] , [facility] 5 13:43:54 Anxiety disorder 486806440 Active 2023 Not Available [facility] 5 09:42:22 Inflamma tory dermatos is 559805772 Completed 202312/20/2024 eczema Not Available [facility] 09:42:23 Unsteady when standing 645837966 Completed 202312/20/2024 Not Available [facility] 09:42:24 Muscle weakness 00040857 Completed 202312/20/2024 Not Available [facility] 09:42:25 Dyspnea 705901940 Completed 202312/20/2024 Not Available [facility] 09:42:25 Difficul ty walking 797201816 Completed 202312/20/2024 Not Available [facility] 09:42:26 Somatic syndrome absent 325050591 Completed 202312/23/2024 JOLEEN BISHOP, [employer] EXEC[employer] DIRECTOR [address] [facility], [address], [place], [address] , [facility] [employer] 5 13:43:54 Fall Completed 202312/20/2024 Not Available [facility] 09:42:29 Acute on chronic hypoxemi c respirat ory failure 18120764571 213668 Completed 202312/20/2024 Not Available [facility] 09:42:29 Syncope and collapse 810783295 Completed 202312/20/2024 Not Available [facility] 09:42:30 Difficul ty walking 264304206 Completed 202312/20/2024 Not Available [facility] 09:42:31 Pleuriti c pain 7477611 Completed 202212/20/2024 Not Available [facility] 09:42:32 Localize d, primary osteoart hritis of the ankle and/or foot 831515154 Completed 202212/20/2024 Not Available [facility] 5 09:42:33 Pain in left foot 69880430887 9107 Completed 202212/20/2024 Not Available [facility] 09:42:34 Essentia l hyperten lisa 36420220 Completed 202212/23/2024 BLAS GONZÁLES [address], [place], [address] , [facility] 5 13:43:54 Osteopor osis 63680491 Completed 202212/20/2024 Not Available [facility] 5 09:42:52 Gastroes ophageal reflux disease without esophagi tis 106065985 Completed 202212/23/2024 BLAS GONZÁLES [address] , [address], [place], [address] , [facility] 5 13:43:54 Chronic hypoxemi c respirat ory failure 797945220 Completed 202212/20/2024 Not Available [facility] 5 09:42:36 Senile cataract 04729090 Completed 202212/23/2024 BLAS GONZÁLES [address] , [address], [place], [address] , [facility] 5 13:43:54 Chronic obstruct sophie pulmonar y disease 12478441 Completed 202212/20/2024 BLAS GONZÁLES [address] , [address], [place], [address] , [facility] 5 13:32:43 Disorder of body system 683182081 Completed 202212/20/2024 Not Available [facility] 5 09:42:39 Constipa tion 78615584 Completed 202112/20/2024 Not Available [facility] 5 09:42:40 Abnormal posture 69027063 Completed 202112/20/2024 Not Available [facility] 5 09:42:41 Abnormal posture 60449047 Completed 202112/20/2024 Not Available [facility] 5 09:42:42 Obesity 249930725 Completed 202012/20/2024 Not Available [facility] 5 09:42:44 Dyspnea 262871565 Completed 202012/20/2024 Not Available [facility] 5 09:42:45 Acute on chronic hypercap juan respirat ory failure 95088712709 06 Completed 202012/20/2024 Not Available [facility] 5 09:42:46 Late effect of accident al fall 730910835 Completed 202012/20/2024 Not Available [facility] 5 09:42:47 Unsteady when standing 237456256 Completed 202012/20/2024 Not Available [facility] 5 09:42:48 Syncope and collapse 555768143 Completed 202012/20/2024 Not Available [facility] 5 09:42:50 Acute exacerba tion of chronic obstruct sophie pulmonar y disease 449237871 Completed 202012/20/2024 Not Available [facility] 5 09:42:51 Muscle weakness 03563324 Completed 202012/20/2024 Not Available [facility] 5 09:42:53 Difficul ty walking 257842005 Completed 202012/20/2024 Not Available [facility] 5 09:42:55 Inflamma tory dermatos is 656705579 Completed 202012/20/2024 eczema Not Available [facility] 5 09:42:55 Bronchit is 87898153 Completed 202012/20/2024 Not Available [facility] 5 09:42:56 Chronic obstruct sophie pulmonar y disease 28232855 Active 2022 BLAS GONZÁLES [facility], [address], [place], [address] , [facility] 5 13:32:43 Seizure 96764251 Active 2024 BLAS GONZÁLES [address] [place] [address], [address], [place], [address] , [facility] 5 13:33:33 Lung mass 950309611 Active 2024 BLAS GONZÁLES [address] [place] [address], [address], [place], [address] , [facility] 5 14:00:34 Bipolar disorder 62193676 Active 2024 BLAS GONZÁLES [address] [place] [address], [address], [place], [address] , [facility] 5 14:04:18 Gastroes ophageal reflux disease 910594458 Active 2024 BLAS GONZÁLES [facility], [address], [place], [address] , [facility] 5 14:16:13 Chronic obstruct sophie pulmonar y disease 72835454 Completed 202312/20/2024 Not Available [facility] 5 10:29:12 Depressi ve disorder 79117476 Active BLAS Rollins [address] [place] [address], [address], [place], [address] , [facility] 5 10:21:22 Acute exacerba tion of chronic obstruct sophie pulmonar y disease 402048856 Completed 12/20/2024 Not Available [facility] 5 09:41:59 Gastroes ophageal reflux disease 254480009 Completed 12/23/2024 BLAS GONZÁLES [address] [facility], [address], [place], [address] , [place] [facility] 5 14:16:13 Bipolar disorder 04238181 Completed 12/20/2024 BLAS GONZÁLES [address] [facility], [address], [place], [address] , [facility] [employer] [facility] 5 14:04:18 Insomnia 206359387 Completed 12/20/2024 Not Available [facility] 09:42:54 Tachycar fiordaliza 4394339 Completed 12/23/2024 BLAS GONZÁLES [address] [facility], [address], [place], [address] , [facility] [employer] [facility] 5 13:43:54 Problem Notes None recorded. Medical Equipment None Reported. Allergies Allergen ID Allergen Name Allergen Category Reaction Reaction Severity Criticality Documentation Date Start Date Code Code System Note Provider Name and Address Organization Details Recorded Time 161 Haldol medicatio n Not available Not available Not available 09/01/2015 18745 9 RxNorm Not Available Not Available Not Available 162 codeine medicatio n Not available Not available Not available 09/01/20152021 2670 RxNorm Restl ess/R jai Not Available Not Available Not Available 163 Substance with sulfonami de structure and antibacte rial mechanism of action (substanc e) medicatio n Not available Not available Not available 09/01/2015 01580 8003 SNOMED Not Available Not Available Not Available 46881 haloperid ol medicatio n Not available Not available Not available 12/20/20242021 5093 RxNorm Palpa tions Not Available Not Available Not Available 72130 fluoxetin e medicatio n Not available Not available Not available 12/20/20242023 4493 RxNorm Not Available Not Available Not Available Medications Name Sig Start Date Stop Date Status Note LastModified by Organization Details LastModified Time lamotrigine 150 mg tablet Give 2 tablet by mouth at bedtime for ANTICONVU LSANT 2 tabs (300mg) at bedtime 2024 active Not Available Not Available Not [...] one time a day for ANTICONVU LSANT 2024 active Not Available Not Available Not Avai lable Shai-24 200 mg capsule,ext ended release Give 2 capsule by mouth one time a day 2024 active Not Available Not Available Not [...] Not Available Not Available Not Avai lable prednisone 5 mg tablet Give 1 tablet by mouth one time a day for COPD 2024 active Not Available Not Available Not [...] Not Avai lable gabapentin 100 mg capsule 100 mg po TID 2024 active Not Available Not Available Not Avai lable Ativan 0.5 mg tablet Give 0.25 mg by mouth every 8 hours as needed for Anxiety or Respirato ry distress for 15 Days 01/09 completed Not Available Not Available Not Available Theolair-SR 200 mg tablet,exte nded release Give 1 capsule by mouth every 12 hours for ANTIASTHM ATIC AND BRONCHODI LATOR 2024 active Not Available Not Available Not [...] Not Avai lable vilazodone 40 mg tablet 40 mg po qd 2024 active Not Available Not Available Not [...] Available Not Available Not Avai lable Vitals Date Recorded Body temperature Heart rate Respiratory rate Oxygen saturation Oxygen saturation in Arterial blood by Pulse oximetry Systolic blood pressure Diastolic blood pressure Provider Name and Address Organization Details Last Updated DateTime 5 99 [degF] 65 /min 16 /min 97 % 97 % 103 mm[Hg] 52 mm[Hg] BLAS GONZÁLES [address] [facility], [address], [place], [address], [place] - [facility] [employer] 5 14:47:16 Social History Question Answer Notes LastModified by Organizat ion Details LastModified Time Tobacco Smoking Status Current Every Day Smoker Not Available [employer] 09/23/2020 03:13:02 How Many Years Have You Smoked Tobacco? 50 [id number] Information not available 09/23/2020 Sex: Unknown Functional Status None recorded. Mental Status None recorded. Family History Nothing Reported Notes:COPD and her sister, s on with gastric cancer Medical History Condition Response Depression Y COPD Y Anxiety Disorder Y Gynecological HistoryNo gynecological history recorded. Obstetrics History GPAL:G 0 P 0 0 0 0 Past Encounters Encounter ID Performer Location Encounter Start Date Encounter Closed Date Diagnosis/Indication Diagnosis SNOMED-CT Code Diagnosis ICD10 Code Diagnosis Note [id number] Tiffany P[facility]rez at [facility] on [address] [place] [address] 09/01/2015 10:08:10 11/04/2015 03:49:10 Acute exacerbation of chronic obstructive pulmonary disease 308771468 J44.1 pt will continue her nebs treatments , Spiriva, prednisone taper, theodur, advair. continue on bipap, start PT/OT Gastroesop hageal reflux disease 564014167 K21.9 continue prilosec Bipolar disorder 1518321 4 F31.9 as pt requested we will increase abilify to 15 mg qd from 10 mg, continue lamictal as ordered which is not a change from [facility]. she can also see [facility] for this diagnosis. Insomnia 188634862 G47.0 0 pt has been on trazodone in the past, not now, will try remeron Tachycardia 2634520 R00. 0 pt was started on atenolol for elevated heart rate. is normal rate now. continue to monitor. [address] Main Office [address] [facility], [address] [place] [address] 09/02/2015 17:39:53 10/09/2015 03:48:09 Acute exacerbation of chronic obstructive pulmonary disease 472354087 J44.1 acute on chronic, improving. Unclear why on all her inhalers while she is on oral prednisone and DuoNeb. We will hold all her inhalers until she has stopped her DuoNeb updrafts and her steroids have been tapered off. Tachycardia 8577850 R00. 0 responding to atenolol. Patient feels much improved Bipolar disorder 7679787 4 F31.9 no change her current medication s Chronic ob structive pulmonary disease 93272693 J44.9 chronic history, resume baseline meds once stable [id number] BLAS GONZÁLES [address] [place] [address] 12/17/2024 13:30:48 12/25/2024 16:13:18 Chronic obstructive pulmonary disease 35724792 J44.9 sob not r/t exacerbati onbaseline on supplement al O2 at 3 literscont on albuterol, breo neb tx, prednisone ,per discharge summary voriconazo le was mention in med list, unable to verify if she was started on this by pulmonolog y.f/u with pulmonolog ymonitor resp status.RT eval and tx prncont biPAP at hs Congestive heart failure 00507155 I50.9 cont on Lasix 40mg , kcl 10 megcont on metoprolol monitor weight, resp, edema Paroxysmal atrial fibrillation 320587474 I48.0 cont on eliquis , metoprolol monitor for unexplaine d bruising bleeding Seizure 87194595 R56.9 continue Lamictal 200 mg qd and 300 mg at nightmonit or for activityfo llow labs Anemia 075722255 D64.9 symptomati chgb 8.4GI consulted - recommende d to f/u with GI outpatient started on ferrous sulfate dailycont vit b, vit Dfollow labs Lung mass 083286208 R91. 8 11/02/24 ct scan showed small area of consolidat sophie hypodensit y in the left upper lobe slightly increased compared to 11/24/2023 .need to f/u to r/o malignancy . Depressive disorder 2678 9007 F32.A cont on Vilazodone 40 mgcontinue on mirtazapin ehx of suicidal ideat b ion, monitor moods and behavioral changes Bipolar disorder 9605868 4 F31.9 cont on abilify, theophylli ne Gastroesop hageal reflux disease 262176654 K21.9 cont on protonixmo nitor for GI upsetsx if bleeding Osteoporosis 11507539 M8 1.0 cont. on alendronat e, vit D, omega 3 , calcium Allergic rhinitis 772088 04 J30.9 cont fluticason e and mucinex Constipation 14484834 K5 9.00 cont on miralax, senna, lactulose Asthenia 33167333 R53.1 02 dependent, dyspnea with exertionPT /OT eval and treat [id number] FARHAD DAILEY, D[facility] [address] [place] [address] 12/25/2024 12:54:10 12/27/2024 14:09:06 Anemia 483311523 D64.9 symptomati chgb 8.4GI consulted - recommende d to f/u with GI outpatient started on ferrous sulfate dailycont vit b, vit Dfollow labs outptf/up with pcp Chronic ob structive pulmonary disease 11545888 J44.9 sob not r/t exacerbati onbaseline on supplement al O2 at 3 literscont on albuterol, breo neb tx, prednisone ,per discharge summary voriconazo le was mention in med list, unable to verify if she was started on this by pulmonolog y.f/u with pulmonolog ycont biPAP at Congestive heart failure 81519121 I50.9 cont on Lasix 40mg , kcl 10 megcont on metoprolol monitor weight, resp, edema at homef/up with pcp Paroxysmal atrial fibrillation 574836480 I48.0 cont on eliquis , metoprolol monitor bleeding at homef/up with pcp Seizure 61553782 R56.9 continue Lamictal 200 mg qd and 300 mg at nightmonit or for activity at homef/up with pcp Lung mass 719725634 R91. 8 11/02/24 ct scan showed small area of consolidat sophie hypodensit y in the left upper lobe slightly increased compared to 11/24/2023 .need to f/u to r/o malignancy outptf/up with pcp Depressive disorder 3548 9007 F32.A cont on Vilazodone 40 mgcontinue on mirtazapin ef/up with pcp Bipolar disorder 6797696 4 F31.9 cont on abilify, theophylli mars/up with pcp Gastroesop hageal reflux disease 878152668 K21.9 cont on protonixmo nitor for GI upset outptf/up with pcp Osteoporosis 98487794 M8 1.0 cont. on alendronat e, vit D, omega 3 , calciumf/u p with pcp Allergic rhinitis 624138 04 J30.9 cont fluticason e and mucinexf/u p with pcp Constipation 67505656 K5 9.00 cont on miralax, senna, lactulosef /up with pcp Asthenia 32696175 R53.1 02 dependent, dyspnea with exertionco mpleted PT/OT eval and treatf/up with pcp Health Concerns Section Related Observation LastModified by Organization Detai ls LastModified Time None Recorded Concern Status LastModified by Organization Details LastModified Time None Recorded Advance Directives Directive None Recorded Payers Encounter Date Sequence Insurance Name Policy Number Policy Garcia Covered Member ID Garcia Member ID Guarantor Name 09/01/2015 1 [place] [employer] Lluvia Carleen Lahair [id number] Lluvia Lahair 09/02/2015 1 [place] [facility]luvia Carleen Lahair [id number] Lluvia Lahair 12/17/2024 1 [place] [facility] Lluvia A Lahair [id number] Lluvia Lahair 12/17/2024 2 [place] [facility] Lluvia Carleen Lahair [id number] Lluvia Lahair 12/25/2024 1 [place] [facility] Lluvia A Lahair [id number] Lluvia Lahair 12/25/2024 2 [place] [facility] Lluvia Carleen Lahair [id number] Lluvia Lahair Notes Date Note Type Note Provider Name and Address Organization Details Recorded Time 09/01/2015 text/html HPI patient admitted to [facility] for COPD exacerbation, acute on chronic resp failure, started on Bipap and atenolol for tachycardia? Mellisa Georges, [employer] EXECUTIVE DIRECTOR [address] [facility], [address], [place], [address], [facility] [employer] 09/01/2015 10:36:55 09/02/2015 text/html HPI 60-year-old female admitted for respiratory infection with negative chest x-ray, acute exacerbation of COPD, but he by hypoxemia and hypercapnia. She required ICU stay for administration of BiPAP. Chest x-ray did not show acute infiltrate. She was treated however with steroids, updraft and antibiotics. History of bipolar disorder as well is active smoker? Mohesn Dos Santos MD [address] [facility], [address], [place], [address], [facility] 09/02/2015 17:45:59 12/17/2024 text/html This is a 69-year-old female patient seen for Transition of care and re-admission. PMH of chronic hypoxic respiratory failure secondary to COPD, chronic CO2 retention, Afib, anxiety/depression, PTSD,obesity, osteoporosis, lung mass,PNA. She was sent to [facility] for evaluation of worsening shortness of breath; medical workup appeared to be at her baseline with the exception of anemia, baseline she usually around 10, labs showed hgb 8.4. GI was consulted and due to no concerns for a GI bleed, patient is recommended to follow up outpatient for EGD/colonoscopy. Per nursing she has been at her baseline since returning [place], there are no acute concerns. BLAS GONZÁLES [address] [facility], [address], [place], [address], [facility] 12/23/2024 16:38:36 12/25/2024 text/html This is a 69-year-old female patient seen for discharge summary. PMH of chronic hypoxic respiratory failure secondary to COPD, chronic CO2 retention, Afib, anxiety/depression, PTSD, obesity, osteoporosis, lung mass,PNA. She was sent to [facility] for evaluation of worsening shortness of breath; medical workup appeared to be at her baseline with the exception of anemia, baseline she usually around 10, labs showed hgb 8.4. GI was consulted and due to no concerns for a GI bleed, patient is recommended to follow up outpatient for EGD/colonoscopy. Patient was seen today. I talked to her daughter on the phone and she will be taking her home to her house tomorrow. Her questions were answered. They plan on finding her a pcp in [place] where they live. Patient is stable for co home with meds and services. GÉNESIS FERNÁNDEZ [address] [facility], [address], [place], [address], [facility] 12/26/2024 07:14:05 OBGyn Episode No OBEpisode recorded.
--- OUTSIDE RECORDS SUMMARY | 2025-01-18 14:47 | XMS_ITS | Encounter Summary ---
Author Organization [facility] Address [address] [place] [address] Care Team Providers Care Fig Washer Name Role Phone Yann Manzanares MD Primary Care Provider [phone] Encounter Details Date Type Department Care Team (Late st Contact Info) Description 11/03/2024 Lab Requisition [facility] [place] [facility] - Main Lab [address] [facility] [place] [address] Janice Núñez MD [address] [place] [address] Chronic obstructive pulmonary disease, unspecified (CMS/HCC) Social [...] Associated Diagnosis Comments COMPLETE BLOOD COUNT Routine 11/05/2024 8:13 AM EST Chronic obstructive pulmonary disease, unspecified (CMS/HCC) BASIC METABOLIC PANEL Routine 11/05/2024 8:13 AM EST Chronic obstructive pulmonary disease, unspecified (CMS/HCC) documented in this encounter Results * (ABNORMAL) Basic metabolic panel (11/05/2024 8:13 AM EST) Sodium 141 133 - 145 mmol/L LAB CHEMISTRY METHOD 11/05/2024 11:51 AM [facility] Potassium 4.1 3.5 - 5.5 mmol/L LAB CHEMISTRY METHOD 11/05/2024 11:51 AM [facility] Chloride 98 96 - 110 mmol/L LAB CHEMISTRY METHOD 11/05/2024 11:51 AM [facility] CO2 43(HH) 21 - 32 mmol/L LAB CHEMISTRY METHOD 11/05/2024 11:51 AM [facility] Anion Gap 0(L) 3 - 11 LAB CHEMISTRY METHOD 11/05/2024 11:51 AM [facility] Glucose 95 70 - 100 mg/dL LAB CHEMISTRY METHOD 11/05/2024 11:51 AM [facility] BUN 12 5 - 25 mg/dL LAB CHEMISTRY METHOD 11/05/2024 11:51 AM [facility] Creatinine 0.97 0.50 - 1.10 mg/dL LAB CHEMISTRY METHOD 11/05/2024 11:51 AM [facility] eGFR 63 >=60 mL/min/1. 73m2 LAB CHEMISTRY METHOD 11/05/2024 11:51 AM [facility] Comment:Calculation based on the??Chronic Kidney Disease Epidemiology Collaboration (CKD-EPI) equation refit??without adjustment for race. BUN/Creatinine Ratio 12.4 LAB CHEMISTRY METHOD 11/05/2024 11:51 AM [facility] Calcium 9.0 8.5 - 10.5 mg/dL LAB CHEMISTRY METHOD 11/05/2024 11:51 AM [facility] Blood Venous blood specimen / Unknown Venipuncture / Unknown 11/05/2024 8:13 AM EST 11/05/2024 10:37 AM EST us Janice Núñez MD LAB BLOOD ORDERABLES Final Resul t [facility] [address] [place] [address], * (ABNORMAL) Complete blood count (11/05/2024 8:13 AM EST) [facility] WBC 5.7 4.8 - 10.8 K/mcL LAB HEMETOLOGY METHOD 11/05/2024 11:00 AM [facility] RBC 3.70(L) 3.80 - 4.80 M/mcL LAB HEMETOLOGY METHOD 11/05/2024 11:00 AM [facility] Hemoglobin 9.8(L) 11.5 - 16.0 g/dL LAB HEMETOLOGY METHOD 11/05/2024 11:00 AM [facility] Hematocrit 34.3(L) 35.0 - 47.0 % LAB HEMETOLOGY METHOD 11/05/2024 11:00 AM [facility] MCV 93.7 79.0 - 98.0 FL LAB HEMETOLOGY METHOD 11/05/2024 11:00 AM [facility] MCH 26.8(L) 27.0 - 32.0 pcg LAB HEMETOLOGY METHOD 11/05/2024 11:00 AM [facility] MCHC 28.6(L) 32.0 - 37.0 g/dL LAB HEMETOLOGY METHOD 11/05/2024 11:00 AM [facility] RDW 14.5 11.0 - 15.0 % LAB HEMETOLOGY METHOD 11/05/2024 11:00 AM [facility] Platelets 429(H) 130 - 400 K/mcL LAB HEMETOLOGY METHOD 11/05/2024 11:00 AM [facility] MPV 9.5 7.0 - 11.0 FL LAB HEMETOLOGY METHOD 11/05/2024 11:00 AM [facility] NRBC 0.0 <1.0 % LAB HEMETOLOGY METHOD 11/05/2024 11:00 AM EST [facility] NRBC Absolute 0.00 <0.10 K/mcL LAB HEMETOLOGY METHOD 11/05/2024 11:00 AM EST [facility] Blood Venous blood specimen / Unknown Venipuncture / Unknown 11/05/2024 8:13 AM EST 11/05/2024 10:37 AM EST us Janice Núñez MD LAB BLOOD ORDERABLES Final Resul t [facility] [address] [place] [address], documented in this encounter Visit Diagnoses Diagnosis Chronic obstructive pulmonary disease, unspecified (CMS/HCC) documented in this encounter Care Teams Fig Washer Relationship Specialty Start Date End Date Yann Manzanares MD [address] [facility] [address] [place] [address] PCP - General 02/08/24 documented as of this encounter
--- OUTSIDE RECORDS SUMMARY | 2025-01-18 14:47 | XMS_ITS | Encounter Summary ---
Author Organization [facility] Address [address] [place] [address] Care Team Providers Care Thermal Cutter Hand Name Role Phone Yann Manzanares MD Primary Care Provider [phone] Encounter Details Date Type Department Care Team (Late st Contact Info) Description 11/02/2024 Lab Requisition [facility] - Main Lab [address] [facility] [place] [address] Janice Núñez MD [address] [place] [address] Chronic obstructive pulmonary disease, unspecified (CMS/HCC) Social [...] Associated Diagnosis Comments COMPLETE BLOOD COUNT Routine 11/02/2024 6:47 AM EST Chronic obstructive pulmonary disease, unspecified (CMS/HCC) BASIC METABOLIC PANEL Routine 11/02/2024 6:47 AM EST Chronic obstructive pulmonary disease, unspecified (CMS/HCC) documented in this encounter Results * (ABNORMAL) Basic metabolic panel (11/02/2024 6:47 AM EST) Sodium 138 133 - 145 mmol/L LAB CHEMISTRY METHOD 11/02/2024 11:22 AM [facility] Potassium 4.0 3.5 - 5.5 mmol/L LAB CHEMISTRY METHOD 11/02/2024 11:22 AM [facility] Chloride 93(L) 96 - 110 mmol/L LAB CHEMISTRY METHOD 11/02/2024 11:22 AM [facility] CO2 40(H) 21 - 32 mmol/L LAB CHEMISTRY METHOD 11/02/2024 11:22 AM [facility] Anion Gap 5 3 - 11 LAB CHEMISTRY METHOD 11/02/2024 11:22 AM [facility] Glucose 86 70 - 100 mg/dL LAB CHEMISTRY METHOD 11/02/2024 11:22 AM [facility] BUN 12 5 - 25 mg/dL LAB CHEMISTRY METHOD 11/02/2024 11:22 AM [facility] Creatinine 0.86 0.50 - 1.10 mg/dL LAB CHEMISTRY METHOD 11/02/2024 11:22 AM [facility] eGFR 73 >=60 mL/min/1. 73m2 LAB CHEMISTRY METHOD 11/02/2024 11:22 AM [facility] Comment:Calculation based on the??Chronic Kidney Disease Epidemiology Collaboration (CKD-EPI) equation refit??without adjustment for race. BUN/Creatinine Ratio 14.0 LAB CHEMISTRY METHOD 11/02/2024 11:22 AM [facility] Calcium 8.9 8.5 - 10.5 mg/dL LAB CHEMISTRY METHOD 11/02/2024 11:22 AM [facility] Blood Venous blood specimen / Unknown Venipuncture / Unknown 11/02/2024 6:47 AM EST 11/02/2024 9:35 AM EST us Janice Núñez MD LAB BLOOD ORDERABLES Final Resul t [facility] [address] [place] [address], * (ABNORMAL) Complete blood count (11/02/2024 6:47 AM EST) [facility] WBC 7.4 4.8 - 10.8 K/mcL LAB HEMETOLOGY METHOD 11/02/2024 10:51 AM [facility] RBC 3.60(L) 3.80 - 4.80 M/mcL LAB HEMETOLOGY METHOD 11/02/2024 10:51 AM [facility] Hemoglobin 9.7(L) 11.5 - 16.0 g/dL LAB HEMETOLOGY METHOD 11/02/2024 10:51 AM [facility] Hematocrit 33.4(L) 35.0 - 47.0 % LAB HEMETOLOGY METHOD 11/02/2024 10:51 AM [facility] MCV 93.6 79.0 - 98.0 FL LAB HEMETOLOGY METHOD 11/02/2024 10:51 AM [facility] MCH 27.2 27.0 - 32.0 pcg LAB HEMETOLOGY METHOD 11/02/2024 10:51 AM [facility] MCHC 29.0(L) 32.0 - 37.0 g/dL LAB HEMETOLOGY METHOD 11/02/2024 10:51 AM [facility] RDW 14.6 11.0 - 15.0 % LAB HEMETOLOGY METHOD 11/02/2024 10:51 AM [facility] Platelets 509(H) 130 - 400 K/mcL LAB HEMETOLOGY METHOD 11/02/2024 10:51 AM [facility] MPV 9.7 7.0 - 11.0 FL LAB HEMETOLOGY METHOD 11/02/2024 10:51 AM [facility] NRBC 0.0 <1.0 % LAB HEMETOLOGY METHOD 11/02/2024 10:51 AM EST [facility] NRBC Absolute 0.00 <0.10 K/[facility] LAB HEMETOLOGY METHOD 11/02/2024 10:51 AM EST [facility] Blood Venous blood specimen / Unknown Venipuncture / Unknown 11/02/2024 6:47 AM EST 11/02/2024 9:35 AM EST us Janice Núñez MD LAB BLOOD ORDERABLES Final Resul t [facility] [address] [place] [address], documented in this encounter Visit Diagnoses Diagnosis Chronic obstructive pulmonary disease, unspecified (CMS/HCC) documented in this encounter Care Teams Thermal Cutter Hand Relationship Specialty Start Date End Date Yann Manzanares MD [address] [facility] [address] [place] [address] PCP - General 02/08/24 documented as of this encounter
--- OUTSIDE RECORDS SUMMARY | 2025-01-18 14:47 | XMS_ITS | Encounter Summary ---
Author Organization [facility] Address [address] [place] [address] Care Team Providers Care Garment Sorter Name Role Phone Yann Manzanares MD Primary Care Provider [phone] Encounter Details Date Type Department Care Team (Late st Contact Info) Description 10/19/2024 Lab Requisition [facility] - Main Lab [address] [facility] [place] [address] Janice Núñez MD [address] [place] [address] Chronic obstructive pulmonary disease, unspecified (CMS/HCC) Social [...] Associated Diagnosis Comments COMPLETE BLOOD COUNT Routine 10/22/2024 8:17 AM EST Chronic obstructive pulmonary disease, unspecified (CMS/HCC) BASIC METABOLIC PANEL Routine 10/22/2024 8:17 AM EST Chronic obstructive pulmonary disease, unspecified (CMS/HCC) documented in this encounter Results * (ABNORMAL) Basic metabolic panel (10/22/2024 8:17 AM EST) Sodium 138 133 - 145 mmol/L LAB CHEMISTRY METHOD 10/22/2024 4:26 PM [facility] Potassium 3.8 3.5 - 5.5 mmol/L LAB CHEMISTRY METHOD 10/22/2024 4:26 PM [facility] Chloride 94(L) 96 - 110 mmol/L LAB CHEMISTRY METHOD 10/22/2024 4:26 PM [facility] CO2 41(HH) 21 - 32 mmol/L LAB CHEMISTRY METHOD 10/22/2024 4:26 PM [facility] Anion Gap 3 3 - 11 LAB CHEMISTRY METHOD 10/22/2024 4:26 PM [facility] Glucose 82 70 - 100 mg/dL LAB CHEMISTRY METHOD 10/22/2024 4:26 PM [facility] BUN 12 5 - 25 mg/dL LAB CHEMISTRY METHOD 10/22/2024 4:26 PM [facility] Creatinine 0.94 0.50 - 1.10 mg/dL LAB CHEMISTRY METHOD 10/22/2024 4:26 PM [facility] eGFR 65 >=60 mL/min/1. 73m2 LAB CHEMISTRY METHOD 10/22/2024 4:26 PM [facility] Comment:Calculation based on the??Chronic Kidney Disease Epidemiology Collaboration (CKD-EPI) equation refit??without adjustment for race. BUN/Creatinine Ratio 12.8 LAB CHEMISTRY METHOD 10/22/2024 4:26 PM [facility] Calcium 9.2 8.5 - 10.5 mg/dL LAB CHEMISTRY METHOD 10/22/2024 4:26 PM [facility] Blood Venous blood specimen / Unknown Venipuncture / Unknown 10/22/2024 8:17 AM EST 10/22/2024 11:52 AM EST us Janice Núñez MD LAB BLOOD ORDERABLES Final Resul t [facility] [address] [place] [address], * (ABNORMAL) Complete blood count (10/22/2024 8:17 AM EST) [facility] WBC 5.5 4.8 - 10.8 K/mcL LAB HEMETOLOGY METHOD 10/22/2024 12:22 PM [facility] RBC 3.40(L) 3.80 - 4.80 M/mcL LAB HEMETOLOGY METHOD 10/22/2024 12:22 PM [facility] Hemoglobin 9.4(L) 11.5 - 16.0 g/dL LAB HEMETOLOGY METHOD 10/22/2024 12:22 PM [facility] Hematocrit 32.9(L) 35.0 - 47.0 % LAB HEMETOLOGY METHOD 10/22/2024 12:22 PM [facility] MCV 96.8 79.0 - 98.0 FL LAB HEMETOLOGY METHOD 10/22/2024 12:22 PM [facility] MCH 27.6 27.0 - 32.0 pcg LAB HEMETOLOGY METHOD 10/22/2024 12:22 PM [facility] MCHC 28.6(L) 32.0 - 37.0 g/dL LAB HEMETOLOGY METHOD 10/22/2024 12:22 PM [facility] RDW 15.0 11.0 - 15.0 % LAB HEMETOLOGY METHOD 10/22/2024 12:22 PM [facility] Platelets 417(H) 130 - 400 K/mcL LAB HEMETOLOGY METHOD 10/22/2024 12:22 PM [facility] MPV 9.8 7.0 - 11.0 FL LAB HEMETOLOGY METHOD 10/22/2024 12:22 PM [facility] NRBC 0.0 <1.0 % LAB HEMETOLOGY METHOD 10/22/2024 12:[address] [facility] NRBC Absolute 0.00 <0.10 K/mcL LAB HEMETOLOGY METHOD 10/22/2024 12:[address] [facility] Blood Venous blood specimen / Unknown Venipuncture / Unknown 10/22/2024 8:17 AM EST 10/22/2024 11:52 AM EST us Janice Núñez MD LAB BLOOD ORDERABLES Final Resul t [facility] [address] [place] [address], documented in this encounter Visit Diagnoses Diagnosis Chronic obstructive pulmonary disease, unspecified (CMS/HCC) documented in this encounter Care Teams Garment Sorter Relationship Specialty Start Date End Date Yann Manzanares MD [address] [facility] [address] [place] [id number] PCP - General 02/08/24 documented as of this encounter
--- OUTSIDE RECORDS SUMMARY | 2025-01-18 14:48 | XMS_ITS | Continuity of Care Document ---
Author Organization [place] - [facility], [facility] Address [address] [place] [id number] Care Team Providers Care Supervisor Intelligence Analyst Name Role Phone NEYDA BRADLEY Primary Care Provider Assessment Encounter Date Assessment Date Assessment LastModified by Organization Details LastModified Time 01/15/2025 01/15/2025 Potential BiCros candidate - refer to provider [email or web address] Not available 01/15/2025 11:26:15 Plan of Treatment Reminders Order Date Submit [...] Abnormal Flag Note LastModifiedBy Organization Detail LastModifiedTime 01/15/20 25 audio gram No observ ation record ed. BARCODE Not Available 2024 15:18:29 Result Notes None recorded. Problems Name Problem SNOMED Code Status Onset Date Resolution Date Notes Provider Name and Address Organization Details Recorded Time Sensorine ural hearing loss of bilateral ears 254420953 Active 2016 Sensorine ural hearing loss, bilateral ; Note: Date Diagnosed : 01/27/2017 10:56 AM (H90.3) Not Available [facility] 4 03:15:55 Bilateral diffuse otitis externa [id number] 64374 Active 2019 Diffuse otitis externa, bilateral ; Note: Date Diagnosed : 02/08/2020 12:16 PM (H60.313) Not Available [facility] 4 03:15:55 Dizziness and giddiness 890618841 Active 2016 Dizziness and giddiness ; Note: Date Diagnosed : 01/27/2017 11:15 AM (R42) Not Available [facility] 4 03:15:55 Posterior rhinorrhe a [id number] Active 2019 Postnasal drip; Note: Date Diagnosed : 02/08/2020 12:53 PM (R09.82) Not Available [facility] 4 03:15:56 Problem Notes None recorded. Procedures Surgical History Date Name Laterality Status Provider Name and Address Organization Details Recorded Time 01/15/2025 Comp Audio with Tymps (68508 & 64154) completed DEL KOO, [address],[place] [address], [place], [address], [facility] 01/15/2025 11:26:17 Imaging Results None recorded. Procedure Notes None recorded. Medical Equipment None Reported. Allergies Allergen ID Allergen Name Allergen Category Reaction Reaction Severity Criticality Documentation Date Start Date Code Code System Note Provider Name and Address Organization Details Recorded Time 569422 haloperid ol lactate medicatio n other Not available Not available 04/10/2024 03176 3 RxNorm React ion: unkno wn, unspe cifie d;; Not Available [facility] 4 01:14:03 287485 codeine sulfate medicatio n other Not available Not available 04/10/2024 52280 RxNorm React ion: unkno wn, unspe cifie d;; Not Available [facility] 4 01:14:04 922041 Substance with sulfonami de structure and antibacte rial mechanism of action (substanc e) medicatio n other Not available Not available 04/10/2024 74817 8003 SNOMED React ion: unkno wn, unspe cifie d;; Not Available [facility] 4 01:14:05 Medications Name Sig Start Date Stop Date Status Note LastModified by Organization Details LastModified Time furosemide 40 mg tablet TAKE 1 TABLET BY MOUTH EVERY DAY active Not Available Not Available No t Available lamotrigin e 150 mg tablet TAKE 2 TABLETS BY MOUTH AT BEDTIME active Not Available Not Available No t Available albuterol sulfate 0.63 mg/3 mL solution for nebulizati on 2016 active Medicatio n ID: [id number] Br and Name: albuterol sulfate S end Method: E-Prescri bed Subs Allowed: subs OK Medica tionGener icName: albuterol sulfate Not Available Not Available Not Available Colace 100 mg capsule 2016 active Medicatio n ID: [id number] Br and Name: Colace Se nd Method: E-Prescri bed Subs Allowed: subs OK Medica tionGener icName: Colace Not Available Not Available Not Available potassium chloride ER 10 mEq capsule,ex tended release TAKE 1 CAPSULE BY MOUTH EVERY DAY active Not Available Not Available No t Available doxycyclin e hyclate 100 mg capsule TAKE 1 CAPSULE BY MOUTH TWICE A DAY FOR 10 DAYS active Not Available Not Available No t Available lamotrigin e 200 mg tablet TAKE 1 TABLET BY MOUTH EVERY DAY IN THE MORNING active Not Available Not Available No t Available theophylli ne ER 200 mg tablet,ext ended release,12 hr 2016 active Medicatio n ID: [id number] Du ration Value: 30 Brand Name: theophyll ine Send Method: E-Prescri bed Subs Allowed: subs OK Specia l Instructi on: TK 1 T PO BID PC Medica tionGener icName: theophyll ine Not Available Not Available Not Available senna 8.6 mg tablet TAKE 1 TABLET BY MOUTH EVERYDAY AT BEDTIME active Not Available Not Available No t Available Claritin 10 mg tablet 1 tablet by mouth 2016 active Medicatio n ID: [id number] Du ration Value: 30 Brand Name: Claritin Send Method: E-Prescri bed Subs Allowed: subs OK Medica tionGener icName: Claritin Not Available Not Available Not Available Artificial Tears (dextran 70-hyprome llose) eye drops 2016 active Medicatio n ID: [id number] Br and Name: Artificia l Tears(dex [id number] ) Send Method: E-Prescri bed Subs Allowed: subs OK Medica tionGener icName: Artificia l Tears(dex [id number] ) Not Available Not Available Not Available prednisone 20 mg tablet FOR 10 DAYS DAILY TAKE 2 TABS DAILY X 5 DAYS, THEN 1 TABLET DAILY X 5 DAYS active Not Available Not Available No t Available alendronat e 70 mg tablet TAKE 1 TABLET BY MOUTH WEEKLY active Not Available Not Available No t Available metoprolol succinate ER 100 mg tablet,ext ended release 24 hr TAKE 1 TABLET BY MOUTH EVERY DAY active Not Available Not Available No t Available prednisone 5 mg tablet GIVE 1 TABLET BY MOUTH ONE TIME A DAY FOR COPD active Not Available Not Available No t Available atenolol 25 mg tablet 2016 active Medicatio n ID: [id number] Du ration Value: 30 Brand Name: atenolol Send Method: E-Prescri bed Subs Allowed: subs OK Specia l Instructi on: TK 1 T PO QD Medica tionGener icName: atenolol Not Available Not Available Not Available aspirin 81 mg tablet,del ayed release TAKE 1 TABLET BY MOUTH EVERY DAY active Not Available Not Available No t Available acetaminop hen 500 mg tablet TAKE 1 ORAL TABLET NEEDED EVERY 8 HOURS active Not Available Not Available No t Available magnesium oxide 400 mg (241.3 mg magnesium) tablet 2016 active Medicatio n ID: [id number] Du ration Value: 30 Brand Name: magnesium oxide Sen d Method: E-Prescri bed Subs Allowed: subs OK Specia l Instructi on: TK 1 T PO QD Medica tionGener icName: magnesium oxide Not Available Not Available Not Available lorazepam 0.5 mg tablet 2016 active Medicatio n ID: [id number] Du ration Value: 30 Brand Name: lorazepam Send Method: E-Prescri bed Subs Allowed: subs OK Specia l Instructi on: TK 1 T PO QHS PRF SLEEP Med icationGe nericName : lorazepam Not Available Not Available Not Available morphine 10 mg/mL intravenou s solution 2016 active Medicatio n ID: [id number] Br and Name: morphine Send Method: E-Prescri bed Subs Allowed: subs OK Medica tionGener icName: morphine Not Available Not Available Not Available pantoprazo le 40 mg tablet,del ayed release TAKE 1 TABLET BY MOUTH EVERY DAY IN THE MORNING active Not Available Not Available No t Available Advair Diskus 250 mcg-50 mcg/dose powder for inhalation 2016 active Medicatio n ID: [id number] Br and Name: Advair Diskus Se nd Method: E-Prescri bed Subs Allowed: subs OK Medica tionGener icName: Advair Diskus Not Available Not Available Not Available nicotine 21 mg/24 hr daily transderma l patch 2016 active Medicatio n ID: [id number] Du ration Value: 28 Brand Name: nicotine Send Method: E-Prescri bed Subs Allowed: subs OK Medica tionGener icName: nicotine Not Available Not Available Not Available betamethas one dipropiona te 0.05 % topical cream APPLY TO FACE TOPICALLY EVERY 12 HOURS NEEDED FOR DERMATITI S active Not Available Not Available No t Available Shai-24 400 mg capsule,ex tended release TAKE 1 CAPSULE BY MOUTH EVERY DAY IN THE MORNING active Not Available Not Available No t Available montelukas t 10 mg tablet TAKE 1 TABLET BY MOUTH EVERYDAY AT BEDTIME active Not Available Not Available No t Available mirtazapin e 15 mg tablet TAKE 1 TABLET BY MOUTH EVERYDAY AT BEDTIME active Not Available Not Available No t Available gabapentin 100 mg capsule TAKE 1 CAPSULE BY MOUTH THREE TIMES A DAY active Not Available Not Available No t Available albuterol sulfate HFA 90 mcg/actuat ion aerosol inhaler TAKE 1 INHALATIO N EVERY 6 HOURS NEEDED active Not Available Not Available No t Available fluticason e propionate 50 mcg/actuat ion nasal spray,susp ension USE 1 SPRAY PER NOSTRIL ONCE A DAY active Not Available Not Available No t Available lamotrigin e 100 mg tablet 2016 active Medicatio n ID: [id number] Du ration Value: 30 Brand Name: lamotrigi ne Send Method: E-Prescri bed Subs Allowed: subs OK Specia l Instructi on: TK 3 TS PO QHS Medic ationGene ricName: lamotrigi ne Not Available Not Available Not Available amoxicilli n 875 mg-potassi um clavulanat e 125 mg tablet TAKE 1 TABLET BY MOUTH TWICE A DAY FOR 10 DAYS active Not Available Not Available No t Available Oyster Shell Calcium-Vi tamin D3 500 mg-5 mcg (200 unit) tablet TAKE 1 TABLET BY MOUTH TWICE A DAY active Not Available Not Available No t Available bupropion HCl SR 200 mg tablet,12 hr sustained- release 2016 active Medicatio n ID: [id number] Du ration Value: 30 Brand Name: bupropion HCl Send Method: E-Prescri bed Subs Allowed: subs OK Specia l Instructi on: TK 1 T PO QAM Medic ationGene ricName: bupropion HCl Not Available Not Available Not Available aripiprazo le 15 mg tablet 2016 active Medicatio n ID: [id number] Du ration Value: 30 Brand Name: aripipraz ole Send Method: E-Prescri bed Subs Allowed: subs OK Specia l Instructi on: TK 1 T PO QAM Medic ationGene ricName: aripipraz ole Not Available Not Available Not Available Abilify 10 mg tablet TAKE 1 TABLET BY MOUTH EVERY DAY IN THE MORNING active Not Available Not Available No t Available Spiriva with HandiHaler 18 mcg and inhalation capsules 2016 active Medicatio n ID: [id number] Du ration Value: 30 Brand Name: Spiriva with HandiHale r Send Method: E-Prescri bed Subs Allowed: subs OK Specia l Instructi on: INL CONTENTS OF 1 C ONCE DAILY USING HANDIHALE R Medicat ionGeneri cName: Spiriva with HandiHale r Not Available Not Available Not Available Feosol 325 mg (65 mg iron) tablet TAKE 1 TABLET BY MOUTH EVERY DAY IN THE MORNING active Not Available Not Available No t Available fluocinolo ne acetonide oil 0.01 % ear drops APPLY 4 DROPS TO BOTH EARS EVERY OTHER DAY active Not Available Not Available No t Available omega-3 fatty acids-fish oil 360 mg-1,200 mg capsule TAKE 1 CAPSULE BY MOUTH TWICE A DAY active Not Available Not Available No t Available diclofenac 1 % topical gel TAKE 1 TOPICAL GRAM 2 TIMES A DAY NEEDED FOR PAIN TO KNEES AND ELBOW active Not Available Not Available No t Available cholecalci ferol (vitamin D3) 50 mcg (2,000 unit) capsule TAKE 1 CAPSULE BY MOUTH EVERY DAY IN THE MORNING active Not Available Not Available No t Available vilazodone 40 mg tablet TAKE 1 TABLET BY MOUTH EVERY DAY active Not Available Not Available No t Available Viibryd 20 mg tablet 2016 active Medicatio n ID: [id number] Du ration Value: 30 Brand Name: Viibryd S end Method: E-Prescri bed Subs Allowed: subs OK Specia l Instructi on: TK 1 T PO QAM Medic ationGene ricName: Viibryd Not Available Not Available Not Available Eliquis 5 mg tablet TAKE 1 TABLET BY MOUTH TWICE A DAY active Not Available Not Available No t Available fluticason e furoate 200 mcg-vilant espinoza 25 mcg/dose inhalation powder PLEASE SEE ATTACHED FOR DETAILED DIRECTION S active Not Available Not Available No t Available Vitals None Recorded Social History None recorded. Functional Status None recorded. Mental Status None recorded. Family History Nothing Reported. Medical History No medical history recorded. Gynecological HistoryNo gynecological history recorded. Obstetrics History GPAL:G 0 P 0 0 0 0 Past Encounters Encounter ID Performer Location Encounter Start Date Encounter Closed Date Diagnosis/Indication Diagnosis SNOMED-CT Code Diagnosis ICD10 Code Diagnosis Note [id number] KALEN MAC MD [facility] [address] [id number] 01/15/2025 10:56:41 01/15/2025 11:53:57 Sensorineural hearing loss of bilateral ears [id number] H90.3 [id number] INDIGO JUDGE [facility] [address] [id number] 01/15/2025 11:23:44 01/16/2025 07:43:57 Sensorineural hearing loss of bilateral ears [id number] H90.3 Audiologic al evaluation results: 01/15/2025 Right ear: {{Normal N ormal through 2 kHz Mild* Moderate M oderately- severe Sev ere Profou nd}} {{hearing hearing. s loping to a mild slopi ng to a moderate s loping to moderately severe slo ping to severe slo ping to profound* flat high frequency low frequency mid frequency cookie bite marroquin curve}} {{with sen sorineural hearing loss with* cond uctive hearing loss with mixed hearing loss with}} {{excellen t* good fa ir poor no measurable }} word recognitio n. Left ear: {{Normal N ormal through 2 kHz Mild M oderate Mo derately-s evere Tammy re* Profou nd}} {{hearing hearing. s loping to a mild slopi ng to a moderate s loping to moderately severe slo ping to severe slo ping to profound* flat high frequency low frequency mid frequency cookie bite marroquin curve}} {{with sen sorineural hearing loss with* cond uctive hearing loss with mixed hearing loss with}} {{excellen t good elizabeth r poor no measurable *}} word recognitio n. Tympanomet ry: Right Ear:{{Type A* Type As Type Ad Type C Type C, shallow & rounded Ty pe B Type B with large volume Cou ld not maintain a hermetic seal}} Left Ear:{{Type A* Type As Type Ad Type C Type C, shallow & rounded Ty pe B Type B with large volume Cou ld not maintain a hermetic seal}} Health Concerns Section Related Observation LastModified by Organization Detai ls LastModified Time None Recorded Concern Status LastModified by Organization Details LastModified Time None Recorded Payers Encounter Date Sequence Insurance Name Policy Number Policy Garcia Covered Member ID Garcia Member ID Guarantor Name 01/15/2025 1 [place] [id number] Lluvia Joleen Mitzi [id number] Lluvia Cartagena 01/15/2025 2 [place] [facility] Lluvia Velezr [id number] Llvuia Cartagena Notes Date Note Type Note Provider Name and Address Organization Details Recorded Time 01/15/2025 text/html HT medical clearance, known asymmetrical SNHL >>AD DEL KOO, [facility] [address] [facility],[address], [address], [place] [facility] 01/15/2025 11:27:24 01/15/2025 text/html 69 year old florencia mesa presents to the office for hearing evaluation. She currently lives at home with her daughter but had been living in nursing homes and group homes over the past few years. 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 She has been using an over the counter hearing aid in the right ear with poor result. She has known profound hearing loss on the left from a left sudden hearing loss in the past. KALEN MAC MD [address] [facility],[address], [address], [place] [facility] 01/15/2025 20:55:02 OBGyn Episode No OBEpisode recorded.
--- OUTSIDE RECORDS SUMMARY | 2025-01-18 14:48 | XMS_ITS | Clinical Summary ---
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 4 Active incontinence pad, liner, disp pad Incontinence Supply Disposable (Disposable Liners) Misc Use 3 times a day as needed for incontinence.= 4 Active mineral oil external liquid 1 mL by Not Applicable route 2 (two) times a day. 4 09/02/20 25 Active mineral oil (Mineral Oil Light) topical Apply 4 g topically every other day if needed (itching or dryness). 4 Active albuterol 2.5 mg /3 mL (0.083 %) nebulizer solution Take 3 mL (2.5 mg total) by nebulization every 4 (four) hours if needed. Active alendronate (FOSAMAX) 70 mg tablet Take 1 tablet (70 mg total) by mouth every 7 (seven) days. 4 Active ARIPiprazole (ABILIFY) 10 mg tablet Take 1 tablet (10 mg total) by mouth 1 (one) time each day. 4 Active aspirin 81 mg EC tablet Take 1 tablet (81 mg total) by mouth 1 (one) time each day. 4 Active betamethasone, augmented, (DIPROLENE) 0.05 % ointment Apply topically 2 times/day for 3 weeks 4 07/22/20 25 Active betamethasone, augmented, (DIPROLENE-AF) 0.05 % cream Apply topically 12 hrly 4 03/03/20 25 Active bisacodyL (DULCOLAX) 5 mg EC tablet Take 2 tablets by mouth right before your first dose of liquid prep. 4 Active cholecalciferol (VITAMIN D-3) 50 mcg (2,000 unit) capsule Take 1 capsule (2,000 Units total) by mouth 1 (one) time each day in the morning. 4 Active cyclobenzaprine (FLEXERIL) 5 mg tablet Take 1 tablet (5 mg total) by mouth 3 (three) times a day if needed. 4 Active docusate sodium (COLACE) 100 mg tablet Take 1 tablet (100 mg total) by mouth 1 (one) time each day in the morning. 4 Active esomeprazole (NexIUM) 40 mg packet Take 40 mg by mouth 1 (one) time each day before breakfast. 4 Active fluocinolone acetonide oiL 0.01 % drops Administer 4 drops into affected ear(s) every other day if needed (other). 4 Active fluticasone furoate-vilante roL (Breo Ellipta) 200-25 mcg/dose inhaler INHALE 1 PUFF DIRECTED ONCE A DAY 4 Active gabapentin (NEURONTIN) 100 mg capsule Take 1 capsule (100 mg total) by mouth 3 (three) times a day. 4 Active guaiFENesin (MUCINEX) 600 mg 12 hr tablet Take 2 tablets (1,200 mg total) by mouth 2 (two) times a day. 4 Active lamoTRIgine (LaMICtal) 150 mg tablet Take 2 tablets (300 mg total) by mouth at bedtime. 4 07/28/20 25 Active lamoTRIgine (LaMICtal) 200 mg tablet Take 1 tablet (200 mg total) by mouth 1 (one) time each day in the morning. 4 Active mirtazapine (REMERON) 15 mg tablet Take 1 tablet (15 mg total) by mouth at bedtime. 4 Active montelukast (SINGULAIR) 10 mg tablet Take 1 tablet (10 mg total) by mouth 1 (one) time each day. 4 Active omega-3 acid ethyl esters (LOVAZA) 1 gram capsule Take 1 capsule (1,000 mg total) by mouth 2 (two) times a day. 4 Active pantoprazole (PROTONIX) 40 mg EC tablet Take 1 tablet (40 mg total) by mouth 1 (one) time each day. 30 minutes before breakfast daily 4 Active salicylic acid (T/LYNN) 3 % shampoo Apply one drop every 24-48 hours as needed. 4 Active salmeteroL (Serevent Diskus) 50 mcg/dose diskus inhaler Inhale 1 puff by mouth 2 (two) times a day. 4 Active theophylline (THEODUR) 200 mg 12 hr tablet Take 1 tablet (200 mg total) by mouth 2 (two) times a day. Active umeclidinium (Incruse Ellipta) 62.5 mcg/actuation inhalation Inhale 1 puff by mouth 1 (one) time each day. 4 Active vilazodone (VIIBRYD) 40 mg tablet Take 1 tablet (40 mg total) by mouth 1 (one) time each day in the morning. 4 Active acetaminophen (TYLENOL) 500 mg tablet Take 1 tablet (500 mg total) by mouth every 6 (six) hours if needed (pain). 30 tablet 3 4 04/01/20 25 Active furosemide (LASIX) 20 mg tablet Take 1 tablet (20 mg total) by mouth 1 (one) time each day if needed (SOB, Weight gain more than 6 lb). 30 tablet 3 4 04/01/20 25 Active furosemide (LASIX) 40 mg tablet Take 1 tablet (40 mg total) by mouth 1 (one) time each day. 90 each 1 4 04/01/20 25 Active fish oil (OMEGA-3) 60-90-500 mg capsule Take 2 capsules (1,000 mg total) by mouth 1 (one) time each day. 60 capsule 11 4 10/03/20 25 Active fluticasone propionate (FLONASE) 50 mcg/actuation nasal spray Administer 1 spray into each nostril 2 (two) times a day. Shake gently. Before first use, prime pump. After use, clean tip and replace cap. 16 g 3 4 Active lactulose (CHRONULAC) solution Take 30 mL (20 g total) by mouth 1 (one) time each day if needed (constipation). 480 mL 3 4 04/01/20 25 Active senna (SENOKOT) 8.6 mg tablet Take 1 tablet (8.6 mg total) by mouth 1 (one) time each day if needed for constipation. 90 each 1 4 04/01/20 25 Active metoprolol succinate (TOPROL-XL) 100 mg 24 hr tablet Take 1 tablet (100 mg total) by mouth 1 (one) time each day. Do not crush or chew. 30 each 11 4 10/03/20 25 Active apixaban (Eliquis) 5 mg tablet Take 1 tablet (5 mg total) by mouth 2 (two) times a day. 180 each 1 4 04/01/20 25 Active albuterol HFA (PROAIR HFA ; PROVENTIL HFA ; VENTOLIN HFA) 90 mcg/actuation inhaler Inhale 2 puffs by mouth every 4 (four) hours if needed (cough). 17 g 3 4 04/01/20 25 Active potassium chloride (KLOR-CON M10) 10 mEq CR tablet Take 1 tablet (10 mEq total) by mouth 1 (one) time each day. Tablet may be swallowed whole (do not crush/chew/suck on) OR broken in half and each half swallowed separately OR dissolved (whole tablet) in ~4 ounces of water (allow ~2 minutes to dissolve, stir well and administer immediately). 90 each 3 4 10/03/20 25 Active diclofenac (VOLTAREN) 1 % topical gel Apply 1 g topically 3 (three) times a day if needed (pain). 120 g 3 4 04/01/20 25 Active fish oil (OMEGA-3) 60-90-500 mg capsule Take 2 capsules (1,000 mg total) by mouth 1 (one) time each day. 60 capsule 11 4 10/21/20 25 Active Active Problems Problem Noted Date Diagnosed Date Obese 07/26/2019 HTN (hypertension) 07/09/2019 Seasonal allergies 03/20/2019 RITA on CPAP 11/08/2017 Overview (09/12/2024): Life supply/cpap [facility] [place] Polysomnogram Trilogy treatment study. Date 09/06/2019. Wt 166#; BMI 30; SE 56 % SM 57 %; spent 1.2 % of the study in REM. On Trilogy; RDI 0 (AHI 0), average oxygen saturation was 88%. For the entire study, PLMs ~0. Prestudy ESS 9; 2/4 RLS symptoms. Recommended Trilogy at current settings but increasing oxygen to 3.5-4 lpm. Pre-study ESS 9. 2/4 RLS symptoms. Depression 10/09/2017 Chronic respiratory failure with hypercapnia 03/2017 Overview (09/12/2024): Historical tracheostomy Other secondary pulmonary hypertension 7 Chronic obstructive pulmonary disease 07/29/2017 Dependence on supplemental oxygen 06/15/2017 Bipolar I disorder 06/10/2017 Gastroesophageal reflux disease 06/08/2017 Insomnia 06/08/2017 Retinal hemorrhage 06/08/2017 Encounters Date Type Department Care Team Description 12/13/2024 Telephone Internal Medicine - [place] [address] [facility] [address] [place] [address] Isamar Garcia MA Request For Order(s) ([facility] 09/21/24-11/19/24 Plan Of Care ) 12/13/2024 Telephone Internal Medicine [facility] [address] [facility] [address] [place] [address] Isamar Garcia MA Request For Order(s) ([facility] Order # [id number]) 12/11/2024 Lab Requisition [facility] - Main Lab [address] [place] [phone] Glenroy Goff MD Chronic obstructive pulmonary disease, unspecified (CMS/HCC) 12/05/2024 Telephone Lung Screening Program [facility] [address] [facility] [address] [place] [address] Joelle Mccain MA 11/29/2024 Telephone Internal Medicine - [place] [address] [facility] [address] [place] [address] Edmond Manzanares MD 11/20/2024 Lab Requisition [facility] - Main Lab [address] [place] [phone] Janice Núñez MD Chronic obstructive pulmonary disease, unspecified (CMS/HCC) 11/09/[address] [facility] Main Lab [address] [place] [phone] Janice Núñez MD Chronic obstructive pulmonary disease, unspecified (CMS/HCC) 11/08/2024 Telephone Lung Screening Program - [place] [address] [facility] [address] [place] [address] Joelle Mccain MA Appointment ([facility]) 11/03/2024 Lab Requisition [facility] Lab [address] [place] [phone] Janice Núñez MD Chronic obstructive pulmonary disease, unspecified (CMS/HCC) 11/02/2024 Lab Requisition [facility] - Main Lab [address] [place] [phone] Janice Núñez MD Chronic obstructive pulmonary disease, unspecified (CMS/HCC) 10/27/2024 Lab Requisition [facility] - Main Lab [address] [place] [phone] Janice Núñez MD Chronic obstructive pulmonary disease, unspecified (CMS/HCC) 10/19/[address] [facility] Main Lab [address] [place] [phone] Janice Núñez MD Chronic obstructive pulmonary disease, unspecified ([facility]) from Last 3 Months Immunizations Name Administration Dates Next Due Influenza Quadravalent, MDCK , 0.5ml, with preservative (Flucelvax) 6mo and older 09/05/2018 Pfizer SARS-CoV-2 COVID-19, mRNA, LNP-S, preservative free 04/24/2024 Pneumococcal conjugate 20 va lent (Prevnar 20, PCV 20) 2mo and older 04/24/2024 Zoster recombinant (Shingrix) 19yo and older Surgical History Surgery Date Site/Laterality Comments OTHER SURGICAL HISTORY PROCEDURE: TRACHEOSTOMY OR LARNGECTOMY; COMMENT: hx of tracheostomy for resp failure Medical History Medical History Date Comments Depression 10/09/2017 DX:Depression Bipolar I disorder ([facility]) 06/10/2017 DX: Bipolar I disorder ([facility]) Chronic obstructive pulmonar y disease ([facility]) 07/29/2017 DX:Chronic obstructive pulmo nary disease ([facility]) Chronic respiratory failure with hypercapnia ([facility]) 08/02/2017 DX:Chronic respiratory failu re with hypercapnia ([facility]) Dependence on supplemental oxygen 06/15/2017 DX:Dependence on supplemental oxygen Gastroesophageal reflux disease 06/08/2017 DX:Gastroesophageal reflux disease Insomnia 06/08/2017 DX:Insomnia Retinal hemorrhage 06/08/2017 DX:Retinal he morrhage RITA on CPAP 11/08/2017 DX:RITA on CPAP; COMMENT: Life supply/cpap Pulmonary hypertension, secondary 08/02/2017 DX:Pulmonary hypertension, secondary Tobacco user 08/02/2017 DX:Tobacco user Family History Medical History Relation Name Comments No Known Problems Brother 1 No Known Problems Brother 2 No Known Problems Father No Known Problems Mother Diabetes Mother's side Other: kidney Disease Sister Relation Name Status Comments Brother 1 Alive Brother 2 Alive Father Mother Mother's side Alive Sister Alive Social History Tobacco Use Types Packs/Day Years Used Date Smoking Tobacco: Former Cigarettes Smokeless Tobacco: Never Tobacco Cessation:Counseling Given: Not Answered Alcohol Use Standard Drinks/Week Comments Not Currently 0 (1 standard drink = 0.6 oz pur e alcohol) Comments Unknown Sex and Gender Information Value Date Recorded Sex Assigned at Not on file Legal Sex Female 9:53 PM EST Gender Identity Not on file Sexual Orientation Not on file Obstetrics History Last Filed Vital Signs Vital Sign Reading Time Taken Comments Blood Pressure 148/64 10/03/2024 11:07 AM EST Pulse 71 10/03/2024 11:07 AM EST Temperature 37.2 ??C (99 ??F) 10/03/2024 11:07 AM EST Respiratory Rate - - Oxygen Saturation 94% 10/03/2024 11:07 AM EST Inhaled Oxygen Concentration - - Weight 89.4 kg (197 lb) 10/03/2024 11:07 AM EST Height 154.9 cm (5' 1 ) 10/03/2024 11:07 AM EST Body Mass Index 37.22 10/03/2024 11:07 AM EST Plan of Treatment Health Maintenance Due Date Last Done Comments DTaP,Tdap,and Td Vaccines (1 - Tdap) 1973 Hepatitis A Vaccines (1 of 2 - Risk 2-dose series) 1973 RSV Immunization Patients 60+ Years Old (1 - Risk 60-74 years 1-dose series) 2014 Medicare Annual Wellness Visit 10/30/2022 Social Influencers of Health Screening 10/30/2022 Zoster Vaccines (2 of 2) 06/19/2024 04/24/2024 COVID-19 Vaccine (2 - season) 2024 04/24/2024 Influenza Vaccine (#1) 2024 09/05/2018 Falls Risk Assessment 02/08/2025 02/09/2024 Depression Screening 04/16/2025 04/16/2024 Hypertension/CHF/CAD Annual BMP Blood Test 12/11/2025 12/11/2024, 11/20/2024, 11/12/2024, Additional history exists Breast Cancer Screening 03/22/2026 03/22/20 24, 03/21/2024, 02/16/2023, Additional history exists Cholesterol Screening (Lipid Panel) 02/08/2029 02/09/2024 Colorectal Cancer Screening: Colonoscopy 04/27/2029 04/27/2024 Osteoporosis Screening (Bone Density Screening) 03/22/2034 03/22/2024, 03/21/2024 Hepatitis C Screening Completed 02/09/2024 Pneumococcal Vaccine: 50+ Years Completed 04/24/2024 HIB Vaccines Aged Out No longer eligi ble based on patient's age to complete this topic HPV Vaccines Aged Out No longer eligi ble based on patient's age to complete this topic Hepatitis B Vaccines Aged Out No long er eligible based on patient's age to complete this topic IPV Vaccines Aged Out No longer eligi ble based on patient's age to complete this topic MMR Vaccines Aged Out No longer eligi ble based on patient's age to complete this topic Meningococcal ACWY Vaccine Aged Out N o longer eligible based on patient's age to complete this topic Meningococcal B Vacine Aged Out No lo nger eligible based on patient's age to complete this topic RSV Immunization Patients Under 20 months Aged Out No longer eligible based on patient's age to complete this topic Varicella Vaccines Aged Out No longer eligible based on patient's age to complete this topic Procedures Procedure Name Priority Date/Time Associated Diagnosis Comments BASIC METABOLIC PANEL Routine 12/11/2024 6:30 AM EST Chronic obstructive pulmonary disease, unspecified (CMS/HCC) COMPLETE BLOOD COUNT Routine 12/11/2024 6:30 AM EST Chronic obstructive pulmonary disease, unspecified (CMS/HCC) BASIC METABOLIC PANEL Routine 11/20/2024 6:24 AM EST Chronic obstructive pulmonary disease, unspecified (CMS/HCC) COMPLETE BLOOD COUNT Routine 11/20/2024 6:24 AM EST Chronic obstructive pulmonary disease, unspecified (CMS/HCC) BASIC METABOLIC PANEL Routine 11/12/2024 8:41 AM EST Chronic obstructive pulmonary disease, unspecified (CMS/HCC) COMPLETE BLOOD COUNT Routine 11/12/2024 8:41 AM EST Chronic obstructive pulmonary disease, unspecified (CMS/HCC) BASIC METABOLIC PANEL Routine 11/05/2024 8:13 AM EST Chronic obstructive pulmonary disease, unspecified (CMS/HCC) COMPLETE BLOOD COUNT Routine 11/05/2024 8:13 AM EST Chronic obstructive pulmonary disease, unspecified (CMS/HCC) BASIC METABOLIC PANEL Routine 11/02/2024 6:47 AM EST Chronic obstructive pulmonary disease, unspecified (CMS/HCC) COMPLETE BLOOD COUNT Routine 11/02/2024 6:47 AM EST Chronic obstructive pulmonary disease, unspecified (CMS/HCC) BASIC METABOLIC PANEL Routine 10/29/2024 8:00 AM EST Chronic obstructive pulmonary disease, unspecified (CMS/HCC) COMPLETE BLOOD COUNT Routine 10/29/2024 8:00 AM EST Chronic obstructive pulmonary disease, unspecified (CMS/HCC) BASIC METABOLIC PANEL Routine 10/22/2024 8:17 AM EST Chronic obstructive pulmonary disease, unspecified (CMS/HCC) COMPLETE BLOOD COUNT Routine 10/22/2024 8:17 AM EST Chronic obstructive pulmonary disease, unspecified (CMS/HCC) COLONOSCOPY Routine 04/27/2024 DEPRESSION SCREENING Routine 04/16/2024 [facility] SCREENING DIGITAL Routine 03/22/2024 8:50 AM EDT Encounter for screening mammogram for malignant neoplasm of breast [facility] DEXA AXIAL SKELETON Routine 03/22/2024 8:14 AM EDT Encounter for screening for osteoporosis HEPATITIS C SCREENING Routine 02/09/2024 FALLS RISK ASSESSMENT Routine 02/09/2024 LIPID PANEL Routine 02/09/2024 from Last 3 Months or Most Recently Relevant to Health Maintenance Results * (ABNORMAL) Complete blood count (12/11/2024 6:30 AM EST) Only the most recent of7 resultswithin the time period is included. WBC 7.2 4.8 - 10.8 [facility] LAB HEMETOLOGY METHOD 12/11/2024 11:[address] [facility] RBC 3.00(L) 3.80 - 4.80 M/mcL LAB HEMETOLOGY METHOD 12/11/2024 11:[address] [facility] Hemoglobin 7.5(L) 11.5 - 16.0 g/dL LAB HEMETOLOGY METHOD 12/11/2024 11:[address] [facility] Hematocrit 26.9(L) 35.0 - 47.0 % LAB HEMETOLOGY METHOD 12/11/2024 11:[address] [facility] MCV 89.4 79.0 - 98.0 FL LAB HEMETOLOGY METHOD 12/11/2024 11:[address] [facility] MCH 24.9(L) 27.0 - 32.0 pcg LAB HEMETOLOGY METHOD 12/11/2024 11:[address] [facility] MCHC 27.9(L) 32.0 - 37.0 g/dL LAB HEMETOLOGY METHOD 12/11/2024 11:[address] [facility] RDW 15.7(H) 11.0 - 15.0 % LAB HEMETOLOGY METHOD 12/11/2024 11:[address] [facility] Platelets 399 130 - 400 K/mcL LAB HEMETOLOGY METHOD 12/11/2024 11:[address] [facility] MPV 10.0 7.0 - 11.0 FL LAB HEMETOLOGY METHOD 12/11/2024 11:[address] [facility] NRBC 0.0 <1.0 % LAB HEMETOLOGY METHOD 12/11/2024 11:[address] [facility] NRBC Absolute 0.00 <0.10 K/mcL LAB HEMETOLOGY METHOD 12/11/2024 11:[address] [facility] Blood Venous blood specimen / Unknown Venipuncture / Unknown 12/11/2024 6:30 AM EST 12/11/2024 9:22 AM EST us Glenroy Goff MD LAB BLOOD ORDERABLES Final Resul t [facility] [address] [place] [address], [place] [phone] * (ABNORMAL) Basic metabolic panel (12/11/2024 6:30 AM EST) Only the most recent of7 resultswithin the time period is included. Sodium 131(L) 133 - 145 mmol/L LAB CHEMISTRY METHOD 12/11/2024 11:[address] [facility] Potassium 4.1 3.5 - 5.5 mmol/L LAB CHEMISTRY METHOD 12/11/2024 11:[address] [facility] Chloride 84(L) 96 - 110 mmol/L LAB CHEMISTRY METHOD 12/11/2024 11:[address] [facility] CO2 43(HH) 21 - 32 mmol/L LAB CHEMISTRY METHOD 12/11/2024 11:[address] [facility] Anion Gap 4 3 - 11 LAB CHEMISTRY METHOD 12/11/2024 11:[address] [facility] Glucose 89 70 - 100 mg/dL LAB CHEMISTRY METHOD 12/11/2024 11:[address] [facility] BUN 17 5 - 25 mg/dL LAB CHEMISTRY METHOD 12/11/2024 11:[address] [facility] Creatinine 0.83 0.50 - 1.10 mg/dL LAB CHEMISTRY METHOD 12/11/2024 11:[address] [facility] eGFR 76 >=60 mL/min/1. 73m2 LAB CHEMISTRY METHOD 12/11/2024 11:[address] [facility] Comment:Calculation based on the??Chronic Kidney Disease Epidemiology Collaboration (CKD-EPI) equation refit??without adjustment for race. BUN/Creatinine Ratio 20.5 LAB CHEMISTRY METHOD 12/11/2024 11:11 AM EST [facility] Calcium 8.6 8.5 - 10.5 mg/dL LAB CHEMISTRY METHOD 12/11/2024 11:11 AM EST [facility] Blood Venous blood specimen / Unknown Venipuncture / Unknown 12/11/2024 6:30 AM EST 12/11/2024 9:22 AM EST Glenroy Goff MD LAB BLOOD ORDERABLES Final Resul t [facility] [address] [place] [address], * Colonoscopy (04/27/2024) Colonoscopy No Interpretation , Abstracted Anatomical Region Laterality Modality Other Historical Provider HEALTH MAINTENANCE Final Result * Depression Screening (04/16/2024) Depression Screening Abstracted Historical Provider MD HEALTH MAINTENANCE Final Result * LUIS ARMANDO SCREENING DIGITAL (03/22/2024 8:50 AM EDT) Anatomical Region Laterality Modality Mammography 03/21/2024 3:07 PM EDT Narrative 03/22/2024 8:50 AM EDT [facility] Diagnostic Imaging Department [address] [place] [id number] Patient: ??DENISA CARTAGENA ?/Age/Sex: 1955 - 68 - F Unit#: ??[id number] ? Location/Status: ??SPDIMAM/REG CLI ? Mnemonic/Ordering Site: ??DIGSC/SPMAM Ordering Physician: ??EDMOND MANZANARES Luis Armando Screening Digital - 03/21/24 - Report Status:Signed EXAM: Luis Armando Screening Digital EXAM DATE AND TIME: 03/21/2024 3:49 PM HISTORY: ??Screening. Left breast biopsy in 2016, pathology benign. COMPARISON: ??02/16/23, 09/21/19, 09/18/18, 09/15/17 TECHNIQUE: Bilateral digital breast tomosynthesis was performed in the CC and MLO projections. Computer aided detection with [employer] 3D 3.1 was employed. TISSUE DENSITY: b. There are scattered areas of fibroglandular density. FINDINGS: No suspicious masses, grouped microcalcifications, or areas of architectural distortion are seen. Chronic left retroareolar asymmetry, most likely representing dilated retroareolar ducts based on previous ultrasounds, has improved over the years and is considered benign. A biopsy marker is again seen in the anterior left breast. Few skin calcifications are noted. The vascularity is unremarkable. IMPRESSION: Stable mammographic appearance of the breasts. ??No evidence of malignancy is seen. A negative mammogram in the presence of a clinically suspicious palpable abnormality does not preclude the possibility of malignancy or alter the indications for biopsy. BI-RADS: ??Category 2: Benign RECOMMENDATION(S): 1: Routine screening mammogram BILATERAL in 1 year. Dictating Physician: ??ERICA TREADWELL MD Electronically Signed by: ??ERICA TREADWELL MD Dic Date/Time: ??03/22/24 0849 Sign date/Time: ??03/22/24 0850 Procedure Note Erica Treadwell MD - 07/16/2024 [facility] Diagnostic Imaging Department [address] [place] [address] Patient: DENISA CARTAGENA /Age/Sex: 1955 - 68 - F Unit#: [id number] Location/Status: SPDIMAM/REG CLI Mnemonic/Ordering Site: [facility] Ordering Physician: EDMOND MANZANARES [facility] Screening Digital - 03/21/24 - Report Status:Signed EXAM: [facility] Screening Digital EXAM DATE AND TIME: 03/21/2024 3:49 PM HISTORY: Screening. Left breast biopsy in 2016, pathology benign. COMPARISON: 02/16/23, 09/21/19, 09/18/18, 09/15/17 TECHNIQUE: Bilateral digital breast tomosynthesis was performed in the CCand MLO projections. Computer aided detection with [employer] AI 3D 3.1was employed. TISSUE DENSITY: b. There are scattered areas of fibroglandular density. FINDINGS: No suspicious masses, grouped microcalcifications, or areas ofarchitectural distortion are seen. Chronic left retroareolar asymmetry, most likely representing dilated retroareolar ducts based on previous ultrasounds, has improved over theyears and is considered benign. A biopsy marker is again seen in the anteriorleft breast. Few skin calcifications are noted. The vascularity is unremarkable. IMPRESSION: Stable mammographic appearance of the breasts. No evidence of malignancyis seen. A negative mammogram in the presence of a clinically suspicious palpable abnormality does not preclude the possibility of malignancy or alter the indications for biopsy. BI-RADS: Category 2: Benign RECOMMENDATION(S): 1: Routine screening mammogram BILATERAL in 1 year. Dictating Physician: ERICA TREADWELL MD Electronically Signed by: ERICA TREADWELL MD Dic Date/Time: 03/22/24 0849 Sign date/Time: 03/22/24 0850 Edmond Manzanares MD IMG BI PROCEDURES Final Result * [facility] DEXA AXIAL SKELETON (03/22/2024 8:14 AM EDT) Anatomical Region Laterality Modality Mammography 03/21/2024 3:07 PM EDT Narrative 03/22/2024 8:14 AM EDT [facility] Diagnostic Imaging Department [address] [place] [address] Patient: ??DENISA CARTAGENA ?/Age/Sex: 1955 - 68 - F Unit#: ??[id number] ? [facility]: [facility] ? Mnemonic/Ordering Site: ??MAMDEXAAX/SPMAM Ordering Physician: ??EDMOND MANZANARES [facility] Dexa Axial Skeleton - 03/21/24 - 1602 Report Status:Signed HISTORY: ??The patient is a 68-year-old postmenopausal female with clinical concern for metabolic bone disease. FINDINGS: ??Dual energy x-ray absorptiometry of the lumbar spine and femurs is performed. The mean bone mineral density at L1-L4 (with the exclusion of L2 and L3) is 1.078 gm/cm2 which is 93% of that of young normals and 102% of that of age matched controls. This yields a T-score of -0.7 and a Z-score of 0.2 and there is therefore no evidence of osteoporosis or osteopenia here. The mean bone mineral density of the femurs bilaterally is 0.912 gm/cm2 which is 90% of that of young normals and 102% of that of age matched controls. ??This yields a T-score of -0.8 and a Z-score of 0.1. and there is therefore no evidence of osteoporosis or osteopenia here. However, the T-score of the right femoral neck is -1.5 and that of the left femoral neck is -1.4 which is diagnostic of osteopenia. IMPRESSION: 1. Osteopenia. ??There has been an increase of 13.1% in bone mineral density in the lumbar spine since the prior examination of 08/16/2017. ??There has been an increase of 19.3% in bone mineral density in the right femur and an increase of 22.1% in bone mineral density in the left femur. 2. FRAX analysis yields a 10-year probability of major osteoporotic fracture of 34.2% and a 10-year probability of hip fracture of 7.1%. Code 61989 Dictating Physician: ??MILTON MENDEZ MD Electronically Signed by: ??MILTON MENDEZ MD Dic Date/Time: ??03/22/24812 Sign date/Time: ??03/22/24 0814 Procedure Note Milton Mendez MD - 07/16/2024 [facility] Diagnostic Imaging Department [address] [place] [address] [id number] Patient: DENISA CARTAGENA/Age/Sex: 1955 - 68 - F Unit#: [id number] [facility]/Ordering Site: MAMDEXAAX/SPMAM Ordering Physician: EDMOND MANZANARES Luis Armando Dexa Axial Skeleton - 03/21/24 - 1602 Report Status:Signed HISTORY: The patient is a 68-year-old postmenopausal female withclinical concern for metabolic bone disease. FINDINGS: Dual energy x-ray absorptiometry of the lumbar spine and femursis performed. The mean bone mineral density at L1-L4 (with the exclusion ofL2 and L3) is 1.078 gm/cm2 which is 93% of that of young normals and 102% of thatof age matched controls. This yields a T-score of -0.7 and a Z-score of 0.2and there is therefore no evidence of osteoporosis or osteopenia here. The mean bone mineral density of the femurs bilaterally is 0.912 gm/jz6rhbhz is 90% of that of young normals and 102% of that of age matched controls.This yields a T-score of -0.8 and a Z-score of 0.1. and there is therefore no evidence of osteoporosis or osteopenia here. However, the T-score of theright femoral neck is -1.5 and that of the left femoral neck is -1.4 which is diagnostic of osteopenia. IMPRESSION: 1. Osteopenia. There has been an increase of 13.1% in bone mineraldensity in the lumbar spine since the prior examination of 08/16/2017. There has beenan increase of 19.3% in bone mineral density in the right femur and anincrease of 22.1% in bone mineral density in the left femur. 2. FRAX analysis yields a 10-year probability of major osteoporoticfracture of 34.2% and a 10-year probability of hip fracture of 7.1%. Code 12963 Dictating Physician: MILTON MENDEZ MD Electronically Signed by: MILTON MENDEZ MD Dic Date/Time: 03/22/24812 Sign date/Time: 04/25/24 0814 Edmond Manzanares MD IMG BI PROCEDURES Final Result * Falls Risk Assessment (02/09/2024) Falls Risk Assessment Abstracted Historical Provider HEALTH MAINTENANCE Final Result * Hepatitis C Screening (02/09/2024) Hepatitis C Screening Abstracted Result [facility] Historical Provider HEALTH MAINTENANCE Final Result * (ABNORMAL) Lipid panel (02/09/2024) LDL/HDL Ratio 2 0 - 4 Triglycerides 80 0 - 150 mg/dL Cholesterol 237(A) 0 - 200 mg/dL HDL 103 >=40 mg/dL LDL Cholesterol 118(A) 0 - 100 mg/dL Blood Venous blood specimen / Unknown Result [facility] Provider LAB BLOOD ORDERABLES Iris l Result from Last 3 Months or Most Recently Relevant to Health Maintenance Insurance MEDICARE [place]ICAID - [place] Advance Directives Documents on File Type Date Recorded Patient Rehab Spec Expl anation Health Care Decision (hx) 04/27/2024 HE ALTH CARE PROXY Health Care Decision (hx) 04/27/2024 HE ALTH CARE PROXY Health Care Decision (hx) 10/29/2021 AD VERA DIRECTIVE Health Care Decision (hx) 10/29/2021 AD VERA DIRECTIVE Health Care Decision (hx) 10/29/2021 AD VERA DIRECTIVE Health Care Decision (hx) 10/29/2021 AD VERA DIRECTIVE Health Care Decision (hx) 10/29/2021 AD VERA DIRECTIVE Health Care Decision (hx) 10/29/2021 AD VERA DIRECTIVE Health Care Decision (hx) 10/29/2021 AD VERA DIRECTIVE Health Care Decision (hx) 03/10/2019 AD VERA DIRECTIVE Health Care Decision (hx) 03/10/2019 AD VERA DIRECTIVE Health Care Decision (hx) 03/10/2019 AD VERA DIRECTIVE Health Care Decision (hx) 03/10/2019 AD VERA DIRECTIVE Health Care Decision (hx) 03/10/2019 AD VERA DIRECTIVE Health Care Decision (hx) 03/10/2019 AD VERA DIRECTIVE Health Care Decision (hx) 03/10/2019 AD VERA DIRECTIVE Health Care Decision (hx) 03/10/2019 AD VERA DIRECTIVE Health Care Decision (hx) 03/10/2019 AD VERA DIRECTIVE Health Care Decision (hx) 03/10/2019 AD VERA DIRECTIVE Health Care Decision (hx) 03/10/2019 AD VERA DIRECTIVE Health Care Decision (hx) 03/10/2019 AD VERA DIRECTIVE Health Care Decision (hx) 03/10/2019 AD VERA DIRECTIVE Health Care Decision (hx) 03/10/2019 AD VERA DIRECTIVE Health Care Decision (hx) 03/10/2019 AD VERA DIRECTIVE Health Care Decision (hx) 06/08/2018 AD VERA DIRECTIVE Health Care Decision (hx) 06/08/2018 AD VERA DIRECTIVE Health Care Decision (hx) 06/08/2018 AD VERA DIRECTIVE Health Care Decision (hx) 06/08/2018 AD VERA DIRECTIVE Health Care Decision (hx) 06/08/2018 AD VERA DIRECTIVE Health Care Decision (hx) 06/08/2018 AD VERA DIRECTIVE Health Care Decision (hx) 06/08/2018 AD VERA DIRECTIVE Health Care Decision (hx) 06/08/2018 AD VERA DIRECTIVE Health Care Decision (hx) 06/08/2018 AD VERA DIRECTIVE Health Care Decision (hx) 06/08/2018 AD VERA DIRECTIVE Health Care Decision (hx) 06/08/2018 AD VERA DIRECTIVE Health Care Decision (hx) 06/08/2018 AD VERA DIRECTIVE Health Care Decision (hx) 06/08/2018 AD VERA DIRECTIVE Health Care Decision (hx) 06/08/2018 AD VERA DIRECTIVE Health Care Decision (hx) 06/08/2018 AD VERA DIRECTIVE Health Care Decision (hx) 11/22/2016 AD VERA DIRECTIVE Health Care Decision (hx) 11/22/2016 AD VERA DIRECTIVE Health Care Decision (hx) 11/22/2016 AD VERA DIRECTIVE Health Care Decision (hx) 11/22/2016 AD VERA DIRECTIVE Health Care Decision (hx) 11/22/2016 AD VERA DIRECTIVE Health Care Decision (hx) 11/22/2016 AD VERA DIRECTIVE Health Care Decision (hx) 11/22/2016 AD VERA DIRECTIVE Health Care Decision (hx) 11/22/2016 AD VERA DIRECTIVE Health Care Decision (hx) 11/22/2016 AD VERA DIRECTIVE Health Care Decision (hx) 11/22/2016 AD VERA DIRECTIVE Health Care Decision (hx) 11/22/2016 AD VERA DIRECTIVE Health Care Decision (hx) 11/22/2016 AD VERA DIRECTIVE Health Care Decision (hx) 11/22/2016 AD VERA DIRECTIVE Health Care Decision (hx) 11/22/2016 AD VERA DIRECTIVE Health Care Decision (hx) 11/22/2016 AD VERA DIRECTIVE Health Care Decision (hx) 12/23/2015 AD VERA DIRECTIVE Health Care Decision (hx) 12/23/2015 AD VERA DIRECTIVE Health Care Decision (hx) 12/23/2015 AD VERA DIRECTIVE Health Care Decision (hx) 12/23/2015 AD VERA DIRECTIVE Health Care Decision (hx) 12/23/2015 AD VERA DIRECTIVE Health Care Decision (hx) 12/23/2015 AD VERA DIRECTIVE Health Care Decision (hx) 12/23/2015 AD VERA DIRECTIVE Health Care Decision (hx) 12/23/2015 AD VERA DIRECTIVE Health Care Decision (hx) 12/23/2015 AD VERA DIRECTIVE Health Care Decision (hx) 12/23/2015 AD VERA DIRECTIVE Health Care Decision (hx) 12/23/2015 AD VERA DIRECTIVE Health Care Decision (hx) 12/23/2015 AD VERA DIRECTIVE Health Care Decision (hx) 12/23/2015 AD VERA DIRECTIVE Health Care Decision (hx) 12/23/2015 AD VERA DIRECTIVE Health Care Decision (hx) 12/23/2015 AD VERA DIRECTIVE Care Teams Farm General Manager Relationship Specialty Start Date End Date Edmond Manzanares MD [address] [place] [address] PCP - General 02/08/24
--- OUTSIDE RECORDS SUMMARY | 2025-01-18 14:48 | XMS_ITS | Encounter Summary ---
Author Organization [facility] Address [address] [place] [address] Care Team Providers Care Shingle Sawyer Name Role Phone Yann Manzanares MD Primary Care Provider [phone] Encounter Details Date Type Department Care Team (Late st Contact Info) Description 11/09/2024 Lab Requisition [facility] - Main Lab [address] [facility] [place] [address] Janice Núñez MD [address] [place] [address] Chronic obstructive pulmonary disease, unspecified (CMS/HCC) Social [...] Associated Diagnosis Comments COMPLETE BLOOD COUNT Routine 11/12/2024 8:41 AM EST Chronic obstructive pulmonary disease, unspecified (CMS/HCC) BASIC METABOLIC PANEL Routine 11/12/2024 8:41 AM EST Chronic obstructive pulmonary disease, unspecified (CMS/HCC) documented in this encounter Results * (ABNORMAL) Basic metabolic panel (11/12/2024 8:41 AM EST) Sodium 141 133 - 145 mmol/L LAB CHEMISTRY METHOD 11/12/2024 4:30 PM [facility] Potassium 4.1 3.5 - 5.5 mmol/L LAB CHEMISTRY METHOD 11/12/2024 4:30 PM [facility] Chloride 92(L) 96 - 110 mmol/L LAB CHEMISTRY METHOD 11/12/2024 4:30 PM [facility] LAB CO2 43(HH) 21 - 32 mmol/L LAB CHEMISTRY METHOD 11/12/2024 4:30 PM [facility] Anion Gap 6 3 - 11 LAB CHEMISTRY METHOD 11/12/2024 4:30 PM [facility] LAB Glucose 90 70 - 100 mg/dL LAB CHEMISTRY METHOD 11/12/2024 4:30 PM [facility] BUN 11 5 - 25 mg/dL LAB CHEMISTRY METHOD 11/12/2024 4:30 PM [facility] Creatinine 0.98 0.50 - 1.10 mg/dL LAB CHEMISTRY METHOD 11/12/2024 4:30 PM [facility] LAB eGFR 62 >=60 mL/min/1. 73m2 LAB CHEMISTRY METHOD 11/12/2024 4:30 PM [facility] LAB Comment:Calculation based on the??Chronic Kidney Disease Epidemiology Collaboration (CKD-EPI) equation refit??without adjustment for race. BUN/Creatinine Ratio 11.2 LAB CHEMISTRY METHOD 11/12/2024 4:30 PM [facility] Calcium 9.3 8.5 - 10.5 mg/dL LAB CHEMISTRY METHOD 11/12/2024 4:30 PM [facility] Blood Venous blood specimen / Unknown Venipuncture / Unknown 11/12/2024 8:41 AM EST 11/12/2024 11:35 AM EST us Janice Núñez MD LAB BLOOD ORDERABLES Final Resul t [facility] LAB [address] [place] [address], * (ABNORMAL) Complete blood count (11/12/2024 8:41 AM EST) [facility] WBC 6.1 4.8 - 10.8 K/mcL LAB HEMETOLOGY METHOD 11/12/2024 11:55 AM [facility] RBC 3.50(L) 3.80 - 4.80 M/mcL LAB HEMETOLOGY METHOD 11/12/2024 11:55 AM [facility] Hemoglobin 9.2(L) 11.5 - 16.0 g/dL LAB HEMETOLOGY METHOD 11/12/2024 11:55 AM [facility] Hematocrit 32.4(L) 35.0 - 47.0 % LAB HEMETOLOGY METHOD 11/12/2024 11:55 AM [facility] LAB MCV 93.9 79.0 - 98.0 FL LAB HEMETOLOGY METHOD 11/12/2024 11:55 AM [facility] MCH 26.7(L) 27.0 - 32.0 pcg LAB HEMETOLOGY METHOD 11/12/2024 11:55 AM [facility] MCHC 28.4(L) 32.0 - 37.0 g/dL LAB HEMETOLOGY METHOD 11/12/2024 11:55 AM [facility] RDW 14.4 11.0 - 15.0 % LAB HEMETOLOGY METHOD 11/12/2024 11:55 AM [facility] Platelets 435(H) 130 - 400 K/mcL LAB HEMETOLOGY METHOD 11/12/2024 11:55 AM [facility] MPV 9.7 7.0 - 11.0 FL LAB HEMETOLOGY METHOD 11/12/2024 11:55 AM [facility] LAB NRBC 0.0 <1.0 % LAB HEMETOLOGY METHOD 11/12/2024 11:55 AM EST [facility] LAB NRBC Absolute 0.00 <0.10 K/mcL LAB HEMETOLOGY METHOD 11/12/2024 11:55 AM EST [facility] Blood Venous blood specimen / Unknown Venipuncture / Unknown 11/12/2024 8:41 AM EST 11/12/2024 11:35 AM EST us Janice Núñez MD LAB BLOOD ORDERABLES Final Resul t [facility] [address] [place] [address], documented in this encounter Visit Diagnoses Diagnosis Chronic obstructive pulmonary disease, unspecified (CMS/HCC) documented in this encounter Care Teams Shingle Sawyer Relationship Specialty Start Date End Date Yann Manzanares MD [address] [facility] [place] [id number] PCP - General 02/08/24 documented as of this encounter
--- OUTSIDE RECORDS SUMMARY | 2025-01-18 14:48 | XMS_ITS | Encounter Summary ---
Author Organization [facility] Address [address] [place] [address] Care Team Providers Care Feather Curling Machine Operator Name Role Phone Yann Manzanares MD Primary Care Provider [phone] Encounter Details Date Type Department Care Team ([facility] st Contact Info) Description 11/29/2024 Telephone Internal Medicine - [place] 175 [facility] [address] [place] [phone] Yann Manzanares MD 175 [facility] [address] [place] [address] Social History Tobacco Use Types Packs/Day Years [...] on file documented as of this encounter Progress Notes * Sandra Orr - 11/29/2024 11:17 AM EST FYI [facility] documented in this encounter Plan of Treatment Not on file documented as of this encounter Visit Diagnoses Not on filedocumented in this encounter Care Teams Feather Curling Machine Operator Relationship Specialty Start Date End Date Yann Manzanares MD 175 [facility] [address] [place] [address] PCP - General 02/08/24 documented as of this encounter
--- OUTSIDE RECORDS SUMMARY | 2025-01-18 14:48 | XMS_ITS | Encounter Summary ---
Author Organization [facility] Address [address] [place] [address] Care Team Providers Care Molecular Biologist Name Role Phone Yann Manzanares MD Primary Care Provider [phone] Encounter Details Date Type Department Care Team (Late st Contact Info) Description 11/20/2024 Lab Requisition [facility] - Main Lab [address] [facility] [place] [address] Janice Núñez MD [address] [place] [address] Chronic obstructive pulmonary disease, unspecified (CMS/HCC) Social [...] Associated Diagnosis Comments COMPLETE BLOOD COUNT Routine 11/20/2024 6:24 AM EST Chronic obstructive pulmonary disease, unspecified (CMS/HCC) BASIC METABOLIC PANEL Routine 11/20/2024 6:24 AM EST Chronic obstructive pulmonary disease, unspecified (CMS/HCC) documented in this encounter Results * (ABNORMAL) Basic metabolic panel (11/20/2024 6:24 AM EST) Sodium 134 133 - 145 mmol/L LAB CHEMISTRY METHOD 11/20/2024 10:56 AM [facility] Potassium 4.3 3.5 - 5.5 mmol/L LAB CHEMISTRY METHOD 11/20/2024 10:56 AM [facility] Chloride 87(L) 96 - 110 mmol/L LAB CHEMISTRY METHOD 11/20/2024 10:56 AM [facility] CO2 44(HH) 21 - 32 mmol/L LAB CHEMISTRY METHOD 11/20/2024 10:56 AM [facility] Anion Gap 3 3 - 11 LAB CHEMISTRY METHOD 11/20/2024 10:56 AM [facility] Glucose 83 70 - 100 mg/dL LAB CHEMISTRY METHOD 11/20/2024 10:56 AM [facility] BUN 17 5 - 25 mg/dL LAB CHEMISTRY METHOD 11/20/2024 10:56 AM [facility] Creatinine 0.95 0.50 - 1.10 mg/dL LAB CHEMISTRY METHOD 11/20/2024 10:56 AM [facility] LAB eGFR 65 >=60 mL/min/1. 73m2 LAB CHEMISTRY METHOD 11/20/2024 10:56 AM [facility] LAB Comment:Calculation based on the??Chronic Kidney Disease Epidemiology Collaboration (CKD-EPI) equation refit??without adjustment for race. BUN/Creatinine Ratio 17.9 LAB CHEMISTRY METHOD 11/20/2024 10:56 AM [facility] Calcium 9.2 8.5 - 10.5 mg/dL LAB CHEMISTRY METHOD 11/20/2024 10:56 AM [facility] Blood Venous blood specimen / Unknown Venipuncture / Unknown 11/20/2024 6:24 AM EST 11/20/2024 9:31 AM EST us Janice Núñez MD LAB BLOOD ORDERABLES Final Resul t [facility] [address] [place] [address], * (ABNORMAL) Complete blood count (11/20/2024 6:24 AM EST) [facility] WBC 8.4 4.8 - 10.8 K/mcL LAB HEMETOLOGY METHOD 11/20/2024 10:10 AM [facility] RBC 3.70(L) 3.80 - 4.80 M/mcL LAB HEMETOLOGY METHOD 11/20/2024 10:10 AM [facility] Hemoglobin 9.5(L) 11.5 - 16.0 g/dL LAB HEMETOLOGY METHOD 11/20/2024 10:10 AM [facility] Hematocrit 34.1(L) 35.0 - 47.0 % LAB HEMETOLOGY METHOD 11/20/2024 10:10 AM [facility] MCV 93.4 79.0 - 98.0 FL LAB HEMETOLOGY METHOD 11/20/2024 10:10 AM [facility] MCH 26.0(L) 27.0 - 32.0 pcg LAB HEMETOLOGY METHOD 11/20/2024 10:10 AM [facility] MCHC 27.9(L) 32.0 - 37.0 g/dL LAB HEMETOLOGY METHOD 11/20/2024 10:10 AM [facility] RDW 14.9 11.0 - 15.0 % LAB HEMETOLOGY METHOD 11/20/2024 10:10 AM [facility] Platelets 512(H) 130 - 400 K/mcL LAB HEMETOLOGY METHOD 11/20/2024 10:10 AM [facility] MPV 9.8 7.0 - 11.0 FL LAB HEMETOLOGY METHOD 11/20/2024 10:10 AM [facility] NRBC 0.0 <1.0 % LAB HEMETOLOGY METHOD 11/20/2024 10:10 AM EST [facility] NRBC Absolute 0.00 <0.10 K/mcL LAB HEMETOLOGY METHOD 11/20/2024 10:10 AM EST [facility] Blood Venous blood specimen / Unknown Venipuncture / Unknown 11/20/2024 6:24 AM EST 11/20/2024 9:31 AM EST us Janice Núñez MD LAB BLOOD ORDERABLES Final Resul t [facility] [address] [place] [address], documented in this encounter Visit Diagnoses Diagnosis Chronic obstructive pulmonary disease, unspecified (CMS/HCC) documented in this encounter Care Teams Molecular Biologist Relationship Specialty Start Date End Date Yann Manzanares MD [address] [facility] [address] [place] [id number] PCP - General 02/08/24 documented as of this encounter
--- OUTSIDE RECORDS SUMMARY | 2025-01-18 14:48 | XMS_ITS | Continuity of Care Document ---
Author Organization [place] - [facility], [facility] Address [address] [place] [id number] Care Team Providers Care Pie Baker Name Role Phone NEYDA BRADLEY Primary Care Provider Assessment Encounter Date Assessment Date Assessment LastModified by Organization Details LastModified Time 01/15/2025 01/15/2025 69 year old female presents for hearing evaluation. TMs intact and middle ear spaces appear well aerated. Audiometric testing today demonstrates stable hearing. Right ear there is mild sloping to profound sensorineural hearing loss with excellent word recognition. Left ear profound sensorineural loss with no measurable word recognition. I have recommended [employer] hearing aid. She was issued clearance for this as well as list of [place] health providers and a copy of today's audiogram. [email or web address] Not available 01/15/2025 11:55:07 Plan of Treatment Reminders Order Date Submit [...] Sensorine ural hearing loss of bilateral ears [id number] Active 2016 Sensorine ural hearing loss, bilateral ; Note: Date Diagnosed : 01/27/2017 10:56 AM (H90.3) Not Available [facility] 4 03:15:55 Bilateral diffuse otitis externa [id number] 82224 Active 2019 Diffuse otitis externa, bilateral ; Note: Date Diagnosed : 02/08/2020 12:16 PM (H60.313) Not Available [facility] 4 03:15:55 Dizziness and giddiness [id number] Active 2016 Dizziness and giddiness ; Note: Date Diagnosed : 01/27/2017 11:15 AM (R42) Not Available [facility] 4 03:15:55 Posterior rhinorrhe a 77253510 Active 2019 Postnasal drip; Note: Date Diagnosed : 02/08/2020 12:53 PM (R09.82) Not Available [facility] 4 03:15:56 Problem Notes None recorded. Procedures Surgical History Date Name Laterality Status Provider Name and Address Organization Details Recorded Time 01/15/2025 Comp Audio with Tymps (90443 & 47751) completed DEL KOO, [address], [id number], [facility] - [facility] 01/15/2025 11:26:17 Imaging Results None recorded. Procedure Notes None recorded. Medical Equipment None Reported. Allergies Allergen ID Allergen Name Allergen Category Reaction Reaction Severity Criticality Documentation Date Start Date Code Code System Note Provider Name and Address Organization Details Recorded Time 353459 haloperid ol lactate medicatio n other Not available Not available 04/10/2024 29888 3 RxNorm React ion: unkno wn, unspe cifie d;; Not Available [facility] 4 01:14:03 952947 codeine sulfate medicatio n other Not available Not available 04/10/2024 83975 RxNorm React ion: unkno wn, unspe cifie d;; Not Available [facility] 4 01:14:04 123437 Substance with sulfonami de structure and antibacte rial mechanism of action (substanc e) medicatio n other Not available Not available 04/10/2024 58927 8003 SNOMED React ion: unkno wn, unspe cifie d;; Not Available [facility] 4 01:14:05 Medications Name Sig Start Date [...] nebulizati on 2016 active Medicatio n ID: [id number] Br and Name: albuterol sulfate S end Method: E-Prescri bed Subs Allowed: subs OK Medica tionGener icName: albuterol sulfate Not Available Not Available Not Available Colace 100 mg capsule 2016 active Medicatio n ID: [id number] Br and Name: Colace Se nd Method: [...] release,12 hr 2016 active Medicatio n ID: [id number] Du ration Value: 30 Brand Name: theophyll [...] by mouth 2016 active Medicatio n ID: [id number] Du ration Value: 30 Brand Name: Claritin Send Method: E-Prescri bed Subs Allowed: subs OK Medica tionGener icName: Claritin Not Available Not Available Not Available Artificial Tears (dextran 70-hyprome llose) eye drops 2016 active Medicatio n ID: [id number] Br and Name: Artificia l Tears(dex n26-rsisl ) Send Method: E-Prescri bed Subs Allowed: subs OK Medica tionGener icName: Artificia l Tears(dex w91-gjzpm ) Not Available Not Available Not Available [...] mg tablet 2016 active Medicatio n ID: [id number] Du ration Value: 30 Brand Name: atenolol [...] magnesium) tablet 2016 active Medicatio n ID: [id number] Du ration Value: 30 Brand Name: magnesium oxide Sen d Method: E-Prescri bed Subs Allowed: subs OK Specia l Instructi on: TK 1 T PO QD Medica tionGener icName: magnesium oxide Not Available Not Available Not Available lorazepam 0.5 mg tablet 2016 active Medicatio n ID: [id number] Du ration Value: 30 Brand Name: lorazepam Send Method: E-Prescri bed Subs Allowed: subs OK Specia l Instructi on: TK 1 T PO QHS PRF SLEEP Med icationGe nericName : lorazepam Not Available Not Available Not Available morphine 10 mg/mL intravenou s solution 2016 active Medicatio n ID: [id number] Br and Name: morphine Send Method: E-Prescri bed Subs Allowed: subs OK Medica tionGener icName: morphine Not Available Not Available Not Available pantoprazo le 40 mg tablet,del ayed release TAKE 1 TABLET BY MOUTH EVERY DAY IN THE MORNING active Not Available Not Available No t Available Advair Diskus 250 mcg-50 mcg/dose powder for inhalation 2016 active Medicatio n ID: [id number] Br and Name: Advair Diskus Se nd Method: E-Prescri bed Subs Allowed: subs OK Medica tionGener icName: Advair Diskus Not Available Not Available Not Available nicotine 21 mg/24 hr daily transderma l patch 2016 active Medicatio n ID: [id number] Du ration Value: 28 Brand Name: nicotine [...] mg tablet 2016 active Medicatio n ID: [id number] Du ration Value: 30 Brand Name: lamotrigi [...] sustained- release 2016 active Medicatio n ID: [id number] Du ration Value: 30 Brand Name: bupropion HCl Send Method: E-Prescri bed Subs Allowed: subs OK Specia l Instructi on: TK 1 T PO QAM Medic ationGene ricName: bupropion HCl Not Available Not Available Not Available aripiprazo le 15 mg tablet 2016 active Medicatio n ID: [id number] Du ration Value: 30 Brand Name: aripipraz [...] inhalation capsules 2016 active Medicatio n ID: [id number] Du ration Value: 30 Brand Name: Spiriva [...] mg tablet 2016 active Medicatio n ID: [id number] Du ration Value: 30 Brand Name: Viibryd S end Method: E-Prescri bed Subs Allowed: subs OK Specia l Instructi on: TK 1 T PO QAM Medic ationGene ricName: Sabrina Not Available Not Available Not Available Eliquis [...] SNOMED-CT Code Diagnosis ICD10 Code Diagnosis Note [id number] KALEN MAC MD [facility] [address] [id number] 01/15/2025 10:56:41 01/15/2025 11:53:57 Sensorineural hearing loss of bilateral ears [id number] H90.3 [id number] INDIGO JUDGE [facility] [address] [phone] 01/15/2025 11:23:44 01/16/2025 07:43:57 Sensorineural hearing loss of bilateral ears [id number] H90.3 Audiologic al evaluation results: 01/15/2025 Right [...] ID Guarantor Name 01/15/2025 1 [place]IC[place] B[place]: [employer] Lluvia Velezr [id number] Lluvia Cartagena 01/15/2025 2 [place] [facility] Lluvia A [place] [id number] Lluvia Cartagena Notes Date Note Type Note Provider Name and Address Organization Details Recorded Time 01/15/2025 text/html HT medical clearance, known asymmetrical SNHL >>AD DEL KOO, INDIG[facility] [address], [address], [place] [facility] 01/15/2025 11:27:24 01/15/2025 text/html 69 year old florencia mesa presents to the office for hearing evaluation. She currently lives at home with her daughter but had been living in nursing homes and group homes over the past few years. She also presents here today with her [employer]ORE ADMINISTRATOR. She has been using an over the counter hearing aid in the right ear with poor result. She has known profound hearing loss on the left from a left sudden hearing loss in the past. KALEN MAC MD 100 [facility],[address], [address], [facility] 01/15/2025 20:55:02 OBGyn Episode No OBEpisode recorded.
--- OUTSIDE RECORDS SUMMARY | 2025-01-18 14:48 | XMS_ITS | Continuity of Care Document ---
Author Organization [facility], [place] Address [address] [address] Care Team Providers Care Slitter Helper Name Role Phone [facility] OTHER Assessment Encounter Date Assessment Date Assessment LastModified by Organization Details LastModified Time 12/25/2024 12/25/2024 Hosp [facility] 12/13: Na 136-K 3.8-Bun 13-Cr 0.7-wbc 7.5-hgb 8.4-hct 28.5-plt 510 Not available 12/26/2024 07:11:06 Plan of Treatment [...] instructions recorded. Reason for Referral None Reported. Problems Name Problem SNOMED Code Status Onset Date Resolution Date Notes Provider Name and Address Organization Details Recorded Time Acute on chronic hypoxemi c respirat ory failure 03047617954 407145 Completed 202412/20/2024 Not Available [facility] 5 09:41:58 Acute exacerba tion of chronic obstruct sophie pulmonar y disease 109531363 Completed 202312/20/2024 Not Available [facility] 09:42:00 Fracture of multiple ribs 2162775 Completed 202312/20/2024 Not Available [facility] 5 09:42:01 Acidosis 70633414 Completed 202312/20/2024 Not Available [facility] 5 09:42:02 Acute on chronic hypercap juan respirat ory failure 28036847304 06 Completed 202312/20/2024 Not Available [facility] 5 09:42:03 Acute exacerba tion of chronic obstruct sophie pulmonar y disease 164571177 Completed 202112/20/2024 Not Available [facility] 5 09:42:03 Congesti ve heart failure 98216626 Completed 202312/20/2024 Not Available [facility] 5 09:42:04 Acute on chronic hypoxemi c respirat ory failure 91798973485 123784 Completed 202312/20/2024 Not Available [facility] 5 09:42:06 Muscle weakness 79102429 Completed 202112/20/2024 Not Available [facility] 5 09:42:06 Chronic hypercap juan respirat ory failure 471351257 Completed 202312/20/2024 Not Available [facility] 5 09:42:43 Acute pulmonar y edema 51671689 Completed 202312/20/2024 Not Available [facility] 5 09:42:08 Difficul ty walking 337806067 Completed 202212/20/2024 Not Available [facility] 5 09:42:08 Pneumoni a 700283107 Completed 202312/20/2024 Not Available [facility] 5 09:42:09 Congesti ve heart failure 38666526 Completed 202312/20/2024 Not Available [facility] 5 09:42:10 Intersti tial lung disease 651888463 Completed 202112/20/2024 Not Available [facility] 5 09:42:11 Need for personal care assistan ce 46743728723 844768 Completed 202312/20/2024 Not Available [facility] 09:42:11 Fall Completed 202212/20/2024 Not Available [facility] 5 09:42:12 Orophary ngeal dysphagi a 04140533 Completed 202112/20/2024 Not Available [facility] 5 09:42:13 Metaboli c encephal opathy 71094372 Completed 202112/20/2024 Not Available [facility] 5 09:42:14 Dyspnea 596857492 Completed 202112/20/2024 Not Available [facility] 09:42:14 Anemia 504472867 Active 2024 Not Available [facility] 09:42:15 Epilepsy 19271486 Completed 202412/23/2024 JOLEEN BISHOP, BLAS [address] [place] [address], [address], [place], [address] , [facility] 5 13:43:54 Muscle weakness 39391527 Completed 202312/20/2024 Not Available [facility] 09:42:16 Difficul ty walking 296130503 Completed 202312/20/2024 Not Available [facility] 09:42:17 Chronic cor pulmonal e 78205005 Completed 202312/20/2024 Not Available [facility] 5 09:42:17 Atopic dermatit is 93320964 Completed 202312/20/2024 Not Available [facility] 5 09:42:18 Acute exacerba tion of chronic obstruct sophie pulmonar y disease 008293505 Completed 202312/20/2024 Not Available [facility] 5 09:42:19 Congesti ve heart failure 91959115 Active 2023 Not Available [facility] 5 09:42:19 Paroxysm al atrial fibrilla tion 517474570 Active 2023 Not Available [facility] 09:42:20 Major depressi on, single episode 30205120 Completed 202312/20/2024 Not Available [facility] 5 09:42:45 Posttrau matic stress disorder 98146664 Active 2023 Not Available [facility] 5 09:42:20 Dependen ce on enabling machine or device 917000377 Completed 202312/23/2024 IVAP BLAS GONZÁLES [address] [facility], [address], [place], [address] , [email or web address] 5 13:43:54 Dependen ce on suppleme ntal oxygen 52239991571 7 Completed 202312/20/2024 Not Available [facility] 5 09:42:37 Pulmonar y emphysem a 39625148 Completed 202312/23/2024 BLAS GONZÁLES [address] [facility], [address], [place], [address] , [email or web address] 5 13:43:54 Anxiety disorder 036107352 Active 2023 Not Available [facility] 5 09:42:22 Inflamma tory dermatos is 043571621 Completed 202312/20/2024 eczema Not Available [facility] 5 09:42:23 Unsteady when standing 454899554 Completed 202312/20/2024 Not Available [facility] 5 09:42:24 Muscle weakness 29886488 Completed 202312/20/2024 Not Available [facility] 5 09:42:25 Dyspnea 581448983 Completed 202312/20/2024 Not Available [facility] 5 09:42:25 Difficul ty walking 667478228 Completed 202312/20/2024 Not Available [facility] 09:42:26 Somatic syndrome absent 892246621 Completed 202312/23/2024 BLAS GONZÁLES [address] [facility], [address], [place], [address] , [email or web address] 5 13:43:54 Fall Completed 202312/20/2024 Not Available [facility] 5 09:42:29 Acute on chronic hypoxemi c respirat ory failure 59884057451 370520 Completed 202312/20/2024 Not Available [facility] 09:42:29 Syncope and collapse 983592485 Completed 202312/20/2024 Not Available [facility] 5 09:42:30 Difficul ty walking 557303637 Completed 202312/20/2024 Not Available [facility] 09:42:31 Pleuriti c pain 1249310 Completed 202212/20/2024 Not Available [facility] 5 09:42:32 Localize d, primary osteoart hritis of the ankle and/or foot 411595831 Completed 202212/20/2024 Not Available [facility] 5 09:42:33 Pain in left foot 82458113334 9107 Completed 202212/20/2024 Not Available [facility] 5 09:42:34 Essentia l hyperten lisa 97101082 Completed 202212/23/2024 BLAS GONZÁLES [address] [facility], [address], [place], [address] , [email or web address] 5 13:43:54 Osteopor osis 18142149 Completed 202212/20/2024 Not Available [facility] 5 09:42:52 Gastroes ophageal reflux disease without esophagi tis 314216855 Completed 202212/23/2024 BLAS GONZÁLES [address] , [address], [place], [address] , [email or web address] 5 13:43:54 Chronic hypoxemi c respirat ory failure 844429445 Completed 202212/20/2024 Not Available [facility] 5 09:42:36 Senile cataract 76071106 Completed 202212/23/2024 BLAS GONZÁLES [address] , [address], [place], [address] , [email or web address] 5 13:43:54 Chronic obstruct sophie pulmonar y disease 58244539 Completed 202212/20/2024 BLAS GONZÁLES [address] , [address], [place], [address] , [email or web address] 5 13:32:43 Disorder of body system 215443094 Completed 202212/20/2024 Not Available [facility] 5 09:42:39 Constipa tion 79459498 Completed 202112/20/2024 Not Available [facility] 5 09:42:40 Abnormal posture 82314334 Completed 202112/20/2024 Not Available [facility] 5 09:42:41 Abnormal posture 17079104 Completed 202112/20/2024 Not Available [facility] 5 09:42:42 Obesity 350179650 Completed 202012/20/2024 Not Available [facility] 5 09:42:44 Dyspnea 516358544 Completed 202012/20/2024 Not Available [facility] 5 09:42:45 Acute on chronic hypercap juan respirat ory failure 77840311831 06 Completed 202012/20/2024 Not Available [facility] 5 09:42:46 Late effect of accident al fall 295953970 Completed 202012/20/2024 Not Available [facility] 5 09:42:47 Unsteady when standing 626197247 Completed 202012/20/2024 Not Available [facility] 5 09:42:48 Syncope and collapse 352553168 Completed 202012/20/2024 Not Available [facility] 5 09:42:50 Acute exacerba tion of chronic obstruct sophie pulmonar y disease 772195096 Completed 202012/20/2024 Not Available [facility] 5 09:42:51 Muscle weakness 60444518 Completed 202012/20/2024 Not Available [facility] 5 09:42:53 Difficul ty walking 997631591 Completed 202012/20/2024 Not Available [facility] 5 09:42:55 Inflamma tory dermatos is 526703235 Completed 202012/20/2024 eczema Not Available [facility] 5 09:42:55 Bronchit is 61820874 Completed 202012/20/2024 Not Available [facility] 5 09:42:56 Chronic obstruct sophie pulmonar y disease 06023330 Active 2022 BLAS GONZÁLES [address] [facility], [address], [place], [address] , [facility] 5 13:32:43 Seizure 08839228 Active 2024 BLAS GONZÁLES [address] [place] [address], [address], [place], [address] , [email or web address] 5 13:33:33 Lung mass 903412563 Active 2024 BLAS GONZÁLES [address] [facility], [address], [place], [address] , [email or web address] 5 14:00:34 Bipolar disorder 64819820 Active 2024 BLAS GONZÁLES [address] [place] [address], [address], [place], [address] , [email or web address] 5 14:04:18 Gastroes ophageal reflux disease 595116526 Active 2024 BLAS GONZÁLES [address] [place] [address], [address], [place], [address] , [email or web address] 5 14:16:13 Chronic obstruct sophie pulmonar y disease 76560220 Completed 202312/20/2024 Not Available [facility] 5 10:29:12 Depressi ve disorder 80803242 Active AIDA Rollins[address], [address], [place], [address] , [email or web address] 5 10:21:22 Acute exacerba tion of chronic obstruct sophie pulmonar y disease 512546931 Completed 12/20/2024 Not Available [facility] 5 09:41:59 Gastroes ophageal reflux disease 144285416 Completed 12/23/2024 BLAS GONZÁLES [address] [facility], [address], [place], [address] , [email or web address] 5 14:16:13 Bipolar disorder 23692434 Completed 12/20/2024 JOLEEN BISHOP [address], [address], [place], [address] , [email or web address] 5 14:04:18 Insomnia 762245420 Completed 12/20/2024 Not Available [facility] 5 09:42:54 Tachycar fiordaliza 3549805 Completed 12/23/2024 BLAS GONZÁLES [address] [facility], [address], [place], [address] , [facility] [facility] 5 13:43:54 Problem Notes None recorded. Medical Equipment None Reported. Allergies Allergen ID Allergen Name Allergen Category Reaction Reaction Severity Criticality Documentation Date Start Date Code Code System Note Provider Name and Address Organization Details Recorded Time 161 Haldol medicatio n Not available Not available Not available 09/01/2015 02687 9 RxNorm Not Available Not Available Not Available 162 codeine medicatio n Not available Not available Not available 09/01/20152021 2670 RxNorm Restl ess/R jai Not Available Not Available Not Available 163 Substance with sulfonami de structure and antibacte rial mechanism of action (substanc e) medicatio n Not available Not available Not available 09/01/2015 80215 8003 SNOMED Not Available Not Available Not Available 43911 haloperid ol medicatio n Not available Not available Not available 12/20/20242021 5093 RxNorm Palpa tions Not Available Not Available Not Available 16121 fluoxetin e medicatio n Not available Not [...] Many Years Have You Smoked Tobacco? 50 [id number] Information not available 09/23/2020 Sex: Unknown Functional [...] SNOMED-CT Code Diagnosis ICD10 Code Diagnosis Note [id number] BLAS GONZÁLES [address], [place] [address] 12/17/2024 13:30:48 12/25/2024 16:13:18 Chronic obstructive pulmonary disease 27806716 J44.9 sob not r/t exacerbati onbaseline on supplement al O2 at 3 literscont on albuterol, breo neb tx, prednisone ,per discharge summary vorhilary mesa was mention in med list, unable to verify if she was started on this by pulmonolog y.f/u with pulmonolog ymonitor resp status.RT eval and tx prncont biPAP at hs Congestive heart failure 32785431 I50.9 cont on Lasix 40mg , kcl 10 megcont on metoprolol monitor weight, resp, edema Paroxysmal atrial fibrillation 311149608 I48.0 cont on eliquis , metoprolol monitor for unexplaine d bruising bleeding Seizure 68990580 R56.9 continue Lamictal 200 mg qd and 300 mg at nightmonit or for activityfo llow labs Anemia 826439266 D64.9 symptomati chgb 8.4GI consulted - recommende d to f/u with GI outpatient started on ferrous sulfate dailycont vit b, vit Dfollow labs Lung mass 419412947 R91. 8 11/02/24 ct scan showed small area of consolidat sophie hypodensit y in the left upper lobe slightly increased compared to 11/24/2023 .need to f/u to r/o malignancy . Depressive disorder 3548 9007 F32.A cont on Vilazodone 40 mgcontinue on mirtazapin ehx of suicidal ideat b ion, monitor moods and behavioral changes Bipolar disorder 0035044 4 F31.9 cont on abilify, theophylli ne Gastroesop hageal reflux disease 128295774 K21.9 cont on protonixmo nitor for GI upsetsx if bleeding Osteoporosis 47703635 M8 1.0 cont. on alendronat e, vit D, omega 3 , calcium Allergic rhinitis 503648 04 J30.9 cont fluticason e and mucinex Constipation 50405935 K5 9.00 cont on miralax, senna, lactulose Asthenia 54903993 R53.1 02 dependent, dyspnea with exertionPT /OT eval and treat [id number] GÉNESIS FERNÁNDEZ [address] [place] [address] 12/25/2024 12:54:10 12/27/2024 14:09:06 Anemia 403936206 D64.9 symptomati chgb 8.4GI consulted - recommende d to f/u with GI outpatient started on ferrous sulfate dailycont vit b, vit Dfollow labs outptf/up with pcp Chronic ob structive pulmonary disease 79862068 J44.9 sob not r/t exacerbati onbaseline on supplement al O2 at 3 literscont on albuterol, breo neb tx, prednisone ,per discharge summary trang mesa was mention in med list, unable to verify if she was started on this by pulmonolog y.f/u with pulmonolog ycont biPAP at hs Congestive heart failure 97865458 I50.9 cont on Lasix 40mg , kcl 10 megcont on metoprolol monitor weight, resp, edema at homef/up with pcp Paroxysmal atrial fibrillation 051165549 I48.0 cont on eliquis , metoprolol monitor bleeding at homef/up with pcp Seizure 82407103 R56.9 continue Lamictal 200 mg qd and 300 mg at nightmonit or for activity at homef/up with pcp Lung mass 083034634 R91. 8 11/02/24 ct scan showed small area of consolidat sophie hypodensit y in the left upper lobe slightly increased compared to 11/24/2023 .need to f/u to r/o malignancy outptf/up with pcp Depressive disorder 3548 9007 F32.A cont on Vilazodone 40 mgcontinue on mirtazapin ef/up with pcp Bipolar disorder 2944092 4 F31.9 cont on abilify, theophylli mars/up with pcp Gastroesop hageal reflux disease 079093757 K21.9 cont on protonixmo nitor for GI upset outptf/up with pcp Osteoporosis 18387363 M8 1.0 cont. on alendronat e, vit D, omega 3 , calciumf/u p with pcp Allergic rhinitis 599142 04 J30.9 cont fluticason e and mucinexf/u p with pcp Constipation 79910359 K5 9.00 cont on miralax, senna, lactulosef /up with pcp Asthenia 00352158 R53.1 02 dependent, dyspnea with exertionco mpleted PT/OT eval and treatf/up with pcp Health Concerns Section Related Observation LastModified by Organization Paul mendiola LastModified Time None Recorded Concern Status LastModified by Organization Details LastModified Time None Recorded Payers Encounter Date Sequence Insurance Name Policy Number Policy Garcia Covered Member ID Garcia Member ID Guarantor Name 12/25/2024 1 [place] [employer] Lluvia Cartagena [id number] Lluvia Cartagena 12/25/2024 2 [place] [facility] Lluvia Cartagena [id number] Lluvia Cartagena Notes Date Note Type Note Provider Name and Address Organization Details Recorded Time 12/25/2024 text/html This is a 69-year-old female patient seen for discharge summary. PMH of chronic hypoxic respiratory failure secondary to COPD, chronic CO2 retention, Afib, anxiety/depression , PTSD, obesity, osteoporosis, lung mass,PNA. She was sent to [facility] for evaluation of worsening shortness of breath; [...] plan on finding her a pcp in [place] where they live. Patient is stable for dc home with meds and services. FARHAD DAILEY [employer] LEGAL [employer]IST[employer] [address] [facility], [address], [place], [address], [facility] 12/26/2024 07:14:05 OBGyn Episode No OBEpisode recorded.
== END 2025-01-18 15:03 | disposition home or self-care (01) ==
PROVIDERS: PCP Student in an Organized Health Care Education/Training Program; Visit Provider Hospitalist
DX: R91.8 Other nonspecific abnormal finding of lung field (principal); J43.2 Centrilobular emphysema; J96.11 Chronic respiratory failure with hypoxia; J96.12 Chronic respiratory failure with hypercapnia; F51.01 Primary insomnia; G47.33 Obstructive sleep apnea (adult) (pediatric)
CPT/HCPCS: 99215; G2211

== ENCOUNTER → 2025-01-18 14:24 | Outpatient (BNVA) | payer MEDICARE, MEDICAID, SELFPAY | PROVIDERS: PCP Student in an Organized Health Care Education/Training Program; Visit Provider Hospitalist | DX: J43.2 Centrilobular emphysema (principal); R91.8 Other nonspecific abnormal finding of lung field; R91.1 Solitary pulmonary nodule; J96.11 Chronic respiratory failure with hypoxia; J96.12 Chronic respiratory failure with hypercapnia; F51.01 Primary insomnia; G47.33 Obstructive sleep apnea (adult) (pediatric) | CPT/HCPCS: 99212 ==

== ENCOUNTER 2025-02-01 10:04 | Outpatient (REF) | payer MEDICARE, MEDICAID, SELFPAY ==
--- NOTE | 2025-02-01 10:35 | MHC.AU.HA1 ---
Hearing Aid Evaluation Date of Visit: 02/01/25 Historical Information: Description of Hearing: Mild sloping to profound sensorineural hearing loss Ad, severe to profound sensorineural hearing loss As. Current personal amplification information, if applicable: None. Previously wore Oticon Opn 3 RITE on the right ear, lost. Summary: Lluvia recently had a hearing test at [facility] and has medical clearance for BiCROS. Discussed options. Reviewed BiCROS vs. just wearing one right hearing aid. Discussed rechargeable vs. batteries. Lluvia selected rechargeable BiCROS system. She has an iPhone that she may like to connect with for streaming. Otoscopy reveals small amount of flaky skin Au, pt notes psoriasis, otherwise clear canals. Hearing Aid Prescription: Based on the individual?s shared listening needs, communication environments, dexterity, desire for connectivity, and personal preferences, the following prescription for amplification has been made: Right ear: Make, Model, Color: Phonak Audeo I 50 R champagne Battery Size: Rechargeable Gas Leak Tester/Slim Tube: 2M Type of Earmold/Dome/CShell/SlimTip: med vented Left ear: Make, Model, Color: Phonak Audeo I CROS champagne Battery Size: Rechargeable Gas Leak Tester/Slim Tube: 2M Type of Earmold/Dome/CShell/SlimTip: med vented Plan of Care: Patient wishes to purchase hearing aids as prescribed Action Taken/Action Needed: Hearing Instrument Fitting to be scheduled when materials arrive Primary Diagnosis: H90.3 Bilateral Sensorineural Hearing Loss Signature: Provider: John Denny, [facility]
--- OUTSIDE RECORDS SUMMARY | 2025-02-01 11:16 | XMS_ITS | Encounter Summary ---
Author Organization [facility] Address [address] [place] [address] Care Team Providers Care Pants Presser Automatic Name Role Phone Yann Manzanares MD Primary Care Provider [phone] Encounter Details Date Type Department Care Team (Late st Contact Info) Description 10/15/2024 Lab Requisition [facility] [address] [facility] [place] [address] Alley San NP [address] [facility] [place] [address] Chronic obstructive pulmonary disease, unspecified (CMS/HCC) Social [...] mmol/L LAB CHEMISTRY METHOD 10/15/2024 1:16 PM [facility] Potassium 3.8 3.5 - 5.5 mmol/L LAB CHEMISTRY METHOD 10/15/2024 1:16 PM [facility] Chloride 90(L) 96 - 110 mmol/L LAB CHEMISTRY METHOD 10/15/2024 1:16 PM [facility] CO2 40(H) 21 - 32 mmol/L LAB CHEMISTRY METHOD 10/15/2024 1:16 PM [facility] Anion Gap 10 3 - 11 LAB CHEMISTRY METHOD 10/15/2024 1:16 PM [facility] Glucose 81 70 - 100 mg/dL LAB CHEMISTRY METHOD 10/15/2024 1:16 PM [facility] BUN 15 5 - 25 mg/dL LAB CHEMISTRY METHOD 10/15/2024 1:16 PM [facility] Creatinine 1.00 0.50 - 1.10 mg/dL LAB CHEMISTRY METHOD 10/15/2024 1:16 PM [facility] eGFR 61 >=60 mL/min/1. 73m2 LAB CHEMISTRY METHOD 10/15/2024 1:16 PM [facility] Comment:Calculation based on the??Chronic Kidney Disease Epidemiology Collaboration (CKD-EPI) equation refit??without adjustment for race. BUN/Creatinine Ratio 15.0 LAB CHEMISTRY METHOD 10/15/2024 1:16 PM [facility] Calcium 9.6 8.5 - 10.5 mg/dL LAB CHEMISTRY METHOD 10/15/2024 1:16 PM [facility] Blood Venous blood specimen / Unknown Venipuncture / Unknown 10/15/2024 8:35 AM EST 10/15/2024 11:13 AM EST Alley San NP LAB BLOOD ORDERABLES Final Re sult [facility] [address] [place] [address], [place] [phone] * (ABNORMAL) Complete blood count (10/15/2024 8:35 AM EST) [facility] WBC 8.3 4.8 - 10.8 K/mcL LAB HEMETOLOGY METHOD 10/15/2024 12:51 PM EST [facility] RBC 3.80 3.80 - 4.80 M/mcL LAB HEMETOLOGY METHOD 10/15/2024 12:51 PM [facility] Hemoglobin 10.7(L) 11.5 - 16.0 g/dL LAB HEMETOLOGY METHOD 10/15/2024 12:51 PM [facility] Hematocrit 37.8 35.0 - 47.0 % LAB HEMETOLOGY METHOD 10/15/2024 12:51 PM [facility] MCV 98.4(H) 79.0 - 98.0 FL LAB HEMETOLOGY METHOD 10/15/2024 12:51 PM [facility] MCH 27.9 27.0 - 32.0 pcg LAB HEMETOLOGY METHOD 10/15/2024 12:51 PM [facility] MCHC 28.3(L) 32.0 - 37.0 g/dL LAB HEMETOLOGY METHOD 10/15/2024 12:51 PM [facility] RDW 15.2(H) 11.0 - 15.0 % LAB HEMETOLOGY METHOD 10/15/2024 12:51 PM [facility] Platelets 474(H) 130 - 400 K/mcL LAB HEMETOLOGY METHOD 10/15/2024 12:51 PM [facility] MPV 9.6 7.0 - 11.0 FL LAB HEMETOLOGY METHOD 10/15/2024 12:51 PM [facility] NRBC 0.0 <1.0 % LAB HEMETOLOGY METHOD 10/15/2024 12:51 PM [facility] NRBC Absolute 0.00 <0.10 K/mcL LAB HEMETOLOGY METHOD 10/15/2024 12:51 PM EST [facility] Blood Venous blood specimen / Unknown Venipuncture / Unknown 10/15/2024 8:35 AM EST 10/15/2024 11:13 AM EST Alley San [employer] LAB BLOOD ORDERABLES Final Re sult [facility] [address] [place] [address], documented in this encounter Visit Diagnoses Diagnosis Chronic obstructive pulmonary disease, unspecified (CMS/HCC) documented in this encounter Care Teams Pants Presser Automatic Relationship Specialty Start Date End Date Yann Manzanares MD [address] [place] [id number] PCP - General 02/08/24 documented as of this encounter
--- OUTSIDE RECORDS SUMMARY | 2025-02-01 11:16 | XMS_ITS | Encounter Summary ---
Author Organization [facility] Address [address] [place] [address] Care Team Providers Care Resource Director Name Role Phone Yann Manzanares MD Primary Care Provider [phone] Encounter Details Date Type Department Care Team (Late st Contact Info) Description 11/03/2024 Lab Requisition [facility] - Main Lab [address] [facility] [place] [address] Janice Núñez MD [address] [place] [address] Chronic obstructive pulmonary disease, unspecified (CMS/HCC) Social [...] mmol/L LAB CHEMISTRY METHOD 11/05/2024 11:51 AM [facility] Potassium 4.1 3.5 - 5.5 mmol/L LAB CHEMISTRY METHOD 11/05/2024 11:51 AM [facility] Chloride 98 96 - 110 mmol/L LAB CHEMISTRY METHOD 11/05/2024 11:51 AM [facility] CO2 43(HH) 21 - 32 mmol/L LAB CHEMISTRY METHOD 11/05/2024 11:51 AM [facility] Anion Gap 0(L) 3 - 11 LAB CHEMISTRY METHOD 11/05/2024 11:51 AM [facility] Glucose 95 70 - 100 mg/dL LAB CHEMISTRY METHOD 11/05/2024 11:51 AM [facility] BUN 12 5 - 25 mg/dL LAB CHEMISTRY METHOD 11/05/2024 11:51 AM [facility] Creatinine 0.97 0.50 - 1.10 mg/dL LAB CHEMISTRY METHOD 11/05/2024 11:51 AM [facility] eGFR 63 >=60 mL/min/1. 73m2 LAB CHEMISTRY METHOD 11/05/2024 11:51 AM [facility] Comment:Calculation based on the??Chronic Kidney Disease Epidemiology Collaboration (CKD-EPI) equation refit??without adjustment for race. BUN/Creatinine Ratio 12.4 LAB CHEMISTRY METHOD 11/05/2024 11:51 AM [facility] Calcium 9.0 8.5 - 10.5 mg/dL LAB CHEMISTRY METHOD 11/05/2024 11:51 AM [facility] Blood Venous blood specimen / Unknown Venipuncture / Unknown 11/05/2024 8:13 AM EST 11/05/2024 10:37 AM EST us Janice Núñez MD LAB BLOOD ORDERABLES Final Resul t [facility] [address] [place] [address], * (ABNORMAL) Complete blood count (11/05/2024 8:13 AM EST) [facility] WBC 5.7 4.8 - 10.8 K/mcL LAB HEMETOLOGY METHOD 11/05/2024 11:00 AM [facility] RBC 3.70(L) 3.80 - 4.80 M/mcL LAB HEMETOLOGY METHOD 11/05/2024 11:00 AM [facility] Hemoglobin 9.8(L) 11.5 - 16.0 g/dL LAB HEMETOLOGY METHOD 11/05/2024 11:00 AM [facility] Hematocrit 34.3(L) 35.0 - 47.0 % LAB HEMETOLOGY METHOD 11/05/2024 11:00 AM [facility] MCV 93.7 79.0 - 98.0 FL LAB HEMETOLOGY METHOD 11/05/2024 11:00 AM [facility] MCH 26.8(L) 27.0 - 32.0 pcg LAB HEMETOLOGY METHOD 11/05/2024 11:00 AM [facility] MCHC 28.6(L) 32.0 - 37.0 g/dL LAB HEMETOLOGY METHOD 11/05/2024 11:00 AM [facility] RDW 14.5 11.0 - 15.0 % LAB HEMETOLOGY METHOD 11/05/2024 11:00 AM [facility] Platelets 429(H) 130 - 400 K/mcL LAB HEMETOLOGY METHOD 11/05/2024 11:00 AM [facility] MPV 9.5 7.0 - 11.0 FL LAB HEMETOLOGY METHOD 11/05/2024 11:00 AM [facility] NRBC 0.0 <1.0 % LAB HEMETOLOGY METHOD 11/05/2024 11:00 AM EST [facility] NRBC Absolute 0.00 <0.10 K/mcL LAB HEMETOLOGY METHOD 11/05/2024 11:00 AM EST [facility] Blood Venous blood specimen / Unknown Venipuncture / Unknown 11/05/2024 8:13 AM EST 11/05/2024 10:37 AM EST us Janice Núñez MD LAB BLOOD ORDERABLES Final Resul t [facility] [address] [place] [address], documented in this encounter Visit Diagnoses Diagnosis Chronic obstructive pulmonary disease, unspecified (CMS/HCC) documented in this encounter Care Teams Resource Director Relationship Specialty Start Date End Date Yann Manzanares MD [address] [facility] [address] [place] [address] PCP - General 02/08/24 documented as of this encounter
--- OUTSIDE RECORDS SUMMARY | 2025-02-01 11:16 | XMS_ITS | Encounter Summary ---
Author Organization [facility] Address [address] [place] [address] Care Team Providers Care Waterworks Operator Name Role Phone Yann Manzanares MD Primary Care Provider [phone] Encounter Details Date Type Department Care Team (Late st Contact Info) Description 10/19/2024 Lab Requisition [facility] - Main Lab [address] [facility] [place] [address] Janice Núñez MD [address] [place] [address] Chronic obstructive pulmonary disease, unspecified (CMS/HCC) Social [...] mmol/L LAB CHEMISTRY METHOD 10/22/2024 4:26 PM [facility] Potassium 3.8 3.5 - 5.5 mmol/L LAB CHEMISTRY METHOD 10/22/2024 4:26 PM [facility] Chloride 94(L) 96 - 110 mmol/L LAB CHEMISTRY METHOD 10/22/2024 4:26 PM [facility] CO2 41(HH) 21 - 32 mmol/L LAB CHEMISTRY METHOD 10/22/2024 4:26 PM [facility] Anion Gap 3 3 - 11 LAB CHEMISTRY METHOD 10/22/2024 4:26 PM [facility] Glucose 82 70 - 100 mg/dL LAB CHEMISTRY METHOD 10/22/2024 4:26 PM [facility] BUN 12 5 - 25 mg/dL LAB CHEMISTRY METHOD 10/22/2024 4:26 PM [facility] Creatinine 0.94 0.50 - 1.10 mg/dL LAB CHEMISTRY METHOD 10/22/2024 4:26 PM [facility] eGFR 65 >=60 mL/min/1. 73m2 LAB CHEMISTRY METHOD 10/22/2024 4:26 PM [facility] Comment:Calculation based on the??Chronic Kidney Disease Epidemiology Collaboration (CKD-EPI) equation refit??without adjustment for race. BUN/Creatinine Ratio 12.8 LAB CHEMISTRY METHOD 10/22/2024 4:26 PM [facility] Calcium 9.2 8.5 - 10.5 mg/dL LAB CHEMISTRY METHOD 10/22/2024 4:26 PM [facility] Blood Venous blood specimen / Unknown Venipuncture / Unknown 10/22/2024 8:17 AM EST 10/22/2024 11:52 AM EST us Janice Núñez MD LAB BLOOD ORDERABLES Final Resul t [facility] [address] [place] [address], * (ABNORMAL) Complete blood count (10/22/2024 8:17 AM EST) [facility] WBC 5.5 4.8 - 10.8 K/mcL LAB HEMETOLOGY METHOD 10/22/2024 12:22 PM [facility] RBC 3.40(L) 3.80 - 4.80 M/mcL LAB HEMETOLOGY METHOD 10/22/2024 12:22 PM [facility] Hemoglobin 9.4(L) 11.5 - 16.0 g/dL LAB HEMETOLOGY METHOD 10/22/2024 12:22 PM [facility] Hematocrit 32.9(L) 35.0 - 47.0 % LAB HEMETOLOGY METHOD 10/22/2024 12:22 PM [facility] MCV 96.8 79.0 - 98.0 FL LAB HEMETOLOGY METHOD 10/22/2024 12:22 PM [facility] MCH 27.6 27.0 - 32.0 pcg LAB HEMETOLOGY METHOD 10/22/2024 12:22 PM [facility] MCHC 28.6(L) 32.0 - 37.0 g/dL LAB HEMETOLOGY METHOD 10/22/2024 12:22 PM [facility] RDW 15.0 11.0 - 15.0 % LAB HEMETOLOGY METHOD 10/22/2024 12:22 PM [facility] Platelets 417(H) 130 - 400 K/mcL LAB HEMETOLOGY METHOD 10/22/2024 12:22 PM [facility] MPV 9.8 7.0 - 11.0 FL LAB HEMETOLOGY METHOD 10/22/2024 12:22 PM [facility] NRBC 0.0 <1.0 % LAB HEMETOLOGY METHOD 10/22/2024 12:22 PM EST [facility] NRBC Absolute 0.00 <0.10 K/mcL LAB HEMETOLOGY METHOD 10/22/2024 12:22 PM EST [facility] Blood Venous blood specimen / Unknown Venipuncture / Unknown 10/22/2024 8:17 AM EST 10/22/2024 11:52 AM EST us Janice Núñez MD LAB BLOOD ORDERABLES Final Resul t [facility] [address] [place] [address], documented in this encounter Visit Diagnoses Diagnosis Chronic obstructive pulmonary disease, unspecified (CMS/HCC) documented in this encounter Care Teams Waterworks Operator Relationship Specialty Start Date End Date Yann Manzanares MD [address] [facility] [address] [place] [id number] PCP - General 02/08/24 documented as of this encounter
--- OUTSIDE RECORDS SUMMARY | 2025-02-01 11:16 | XMS_ITS | Encounter Summary ---
Author Organization [facility] Address [address] [place] [address] Care Team Providers Care Turntable Engineer Name Role Phone Yann Manzanares MD Primary Care Provider [phone] Encounter Details Date Type Department Care Team (Late st Contact Info) Description 10/27/2024 Lab Requisition [facility] - Main Lab 299 [facility] [place] [address] Janice Núñez MD [address] [place] [address] Chronic obstructive pulmonary disease, unspecified (CMS/HCC) Social [...] mmol/L LAB CHEMISTRY METHOD 10/29/2024 2:[address] [facility] Potassium 3.6 3.5 - 5.5 mmol/L LAB CHEMISTRY METHOD 10/29/2024 2:[address] [facility] Chloride 91(L) 96 - 110 mmol/L LAB CHEMISTRY METHOD 10/29/2024 2:[address] [facility] CO2 40(H) 21 - 32 mmol/L LAB CHEMISTRY METHOD 10/29/2024 2:[address] [facility] Anion Gap 7 3 - 11 LAB CHEMISTRY METHOD 10/29/2024 2:[address] [facility] Glucose 86 70 - 100 mg/dL LAB CHEMISTRY METHOD 10/29/2024 2:[address] [facility] BUN 15 5 - 25 mg/dL LAB CHEMISTRY METHOD 10/29/2024 2:[address] [facility] Creatinine 0.89 0.50 - 1.10 mg/dL LAB CHEMISTRY METHOD 10/29/2024 2:[address] [facility] eGFR 70 >=60 mL/min/1. 73m2 LAB CHEMISTRY METHOD 10/29/2024 2:[address] [facility] Comment:Calculation based on the??Chronic Kidney Disease Epidemiology Collaboration (CKD-EPI) equation refit??without adjustment for race. BUN/Creatinine Ratio 16.9 LAB CHEMISTRY METHOD 10/29/2024 2:[address] [facility] Calcium 9.3 8.5 - 10.5 mg/dL LAB CHEMISTRY METHOD 10/29/2024 2:[address] [facility] Blood Venous blood specimen / Unknown Venipuncture / Unknown 10/29/2024 8:00 AM EST 10/29/2024 11:30 AM EST us Janice Núñez MD LAB BLOOD ORDERABLES Final Resul t [facility] [address] [place] [address], * (ABNORMAL) Complete blood count (10/29/2024 8:00 AM EST) [facility] WBC 6.3 4.8 - 10.8 K/mcL LAB HEMETOLOGY METHOD 10/29/2024 12:[address] [facility] RBC 3.70(L) 3.80 - 4.80 M/mcL LAB HEMETOLOGY METHOD 10/29/2024 12:[address] [facility] Hemoglobin 10.1(L) 11.5 - 16.0 g/dL LAB HEMETOLOGY METHOD 10/29/2024 12:[address] [facility] Hematocrit 35.2 35.0 - 47.0 % LAB HEMETOLOGY METHOD 10/29/2024 12:[address] [facility] MCV 94.1 79.0 - 98.0 FL LAB HEMETOLOGY METHOD 10/29/2024 12:[address] [facility] MCH 27.0 27.0 - 32.0 pcg LAB HEMETOLOGY METHOD 10/29/2024 12:[address] [facility] MCHC 28.7(L) 32.0 - 37.0 g/dL LAB HEMETOLOGY METHOD 10/29/2024 12:[address] [facility] RDW 14.5 11.0 - 15.0 % LAB HEMETOLOGY METHOD 10/29/2024 12:[address] [facility] Platelets 504(H) 130 - 400 K/mcL LAB HEMETOLOGY METHOD 10/29/2024 12:[address] [facility] MPV 9.3 7.0 - 11.0 FL LAB HEMETOLOGY METHOD 10/29/2024 12:[address] [facility] NRBC 0.0 <1.0 % LAB HEMETOLOGY METHOD 10/29/2024 12:[address] [facility] NRBC Absolute 0.00 <0.10 K/mcL LAB HEMETOLOGY METHOD 10/29/2024 12:[address] [facility] Blood Venous blood specimen / Unknown Venipuncture / Unknown 10/29/2024 8:00 AM EST 10/29/2024 11:30 AM EST us Janice Núñez MD LAB BLOOD ORDERABLES Final Resul t [facility] [address] [place] [address], documented in this encounter Visit Diagnoses Diagnosis Chronic obstructive pulmonary disease, unspecified (CMS/HCC) documented in this encounter Care Teams Turntable Engineer Relationship Specialty Start Date End Date Yann Manzanares MD [address] [address] PCP - General 02/08/24 documented as of this encounter
--- OUTSIDE RECORDS SUMMARY | 2025-02-01 11:16 | XMS_ITS | Encounter Summary ---
Author Organization [facility] Address [address] [place] [address] Care Team Providers Care State Director Name Role Phone Yann Manzanares MD Primary Care Provider [phone] Encounter Details Date Type Department Care Team (Late st Contact Info) Description 11/02/2024 Lab Requisition [facility] - Main Lab [address] [facility] [place] [address] Janice Núñez MD [address] [place] [address] Chronic obstructive pulmonary disease, unspecified (CMS/HCC) Social [...] mmol/L LAB CHEMISTRY METHOD 11/02/2024 11:22 AM [facility] Potassium 4.0 3.5 - 5.5 mmol/L LAB CHEMISTRY METHOD 11/02/2024 11:22 AM [facility] Chloride 93(L) 96 - 110 mmol/L LAB CHEMISTRY METHOD 11/02/2024 11:22 AM [facility] CO2 40(H) 21 - 32 mmol/L LAB CHEMISTRY METHOD 11/02/2024 11:22 AM [facility] Anion Gap 5 3 - 11 LAB CHEMISTRY METHOD 11/02/2024 11:22 AM [facility] Glucose 86 70 - 100 mg/dL LAB CHEMISTRY METHOD 11/02/2024 11:22 AM [facility] BUN 12 5 - 25 mg/dL LAB CHEMISTRY METHOD 11/02/2024 11:22 AM [facility] Creatinine 0.86 0.50 - 1.10 mg/dL LAB CHEMISTRY METHOD 11/02/2024 11:22 AM [facility] eGFR 73 >=60 mL/min/1. 73m2 LAB CHEMISTRY METHOD 11/02/2024 11:22 AM [facility] Comment:Calculation based on the??Chronic Kidney Disease Epidemiology Collaboration (CKD-EPI) equation refit??without adjustment for race. BUN/Creatinine Ratio 14.0 LAB CHEMISTRY METHOD 11/02/2024 11:22 AM [facility] Calcium 8.9 8.5 - 10.5 mg/dL LAB CHEMISTRY METHOD 11/02/2024 11:22 AM [facility] Blood Venous blood specimen / Unknown Venipuncture / Unknown 11/02/2024 6:47 AM EST 11/02/2024 9:35 AM EST us Janice Núñez MD LAB BLOOD ORDERABLES Final Resul t [facility] [address] [place] [address], * (ABNORMAL) Complete blood count (11/02/2024 6:47 AM EST) [facility] WBC 7.4 4.8 - 10.8 K/mcL LAB HEMETOLOGY METHOD 11/02/2024 10:51 AM [facility] RBC 3.60(L) 3.80 - 4.80 M/mcL LAB HEMETOLOGY METHOD 11/02/2024 10:51 AM [facility] Hemoglobin 9.7(L) 11.5 - 16.0 g/dL LAB HEMETOLOGY METHOD 11/02/2024 10:51 AM [facility] Hematocrit 33.4(L) 35.0 - 47.0 % LAB HEMETOLOGY METHOD 11/02/2024 10:51 AM [facility] MCV 93.6 79.0 - 98.0 FL LAB HEMETOLOGY METHOD 11/02/2024 10:51 AM [facility] MCH 27.2 27.0 - 32.0 pcg LAB HEMETOLOGY METHOD 11/02/2024 10:51 AM [facility] MCHC 29.0(L) 32.0 - 37.0 g/dL LAB HEMETOLOGY METHOD 11/02/2024 10:51 AM [facility] RDW 14.6 11.0 - 15.0 % LAB HEMETOLOGY METHOD 11/02/2024 10:51 AM [facility] Platelets 509(H) 130 - 400 K/mcL LAB HEMETOLOGY METHOD 11/02/2024 10:51 AM [facility] MPV 9.7 7.0 - 11.0 FL LAB HEMETOLOGY METHOD 11/02/2024 10:51 AM [facility] NRBC 0.0 <1.0 % LAB HEMETOLOGY METHOD 11/02/2024 10:51 AM EST [facility] NRBC Absolute 0.00 <0.10 K/[facility] LAB HEMETOLOGY METHOD 11/02/2024 10:51 AM EST [facility] Blood Venous blood specimen / Unknown Venipuncture / Unknown 11/02/2024 6:47 AM EST 11/02/2024 9:35 AM EST us Janice Núñez MD LAB BLOOD ORDERABLES Final Resul t [facility] [address] [place] [address], documented in this encounter Visit Diagnoses Diagnosis Chronic obstructive pulmonary disease, unspecified (CMS/HCC) documented in this encounter Care Teams State Director Relationship Specialty Start Date End Date Yann Manzanares MD 175 [facility] [address] [place] [address] PCP - General 02/08/24 documented as of this encounter
--- OUTSIDE RECORDS SUMMARY | 2025-02-01 11:16 | XMS_ITS | Data Portability ---
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 Name Role Phone [facility] OTHER Assessment Encounter Date [...] on chronic hypoxemi c respirat ory failure [id number] Completed 202412/20/2024 Not Available [facility] 09:41:58 Acute exacerba tion of chronic obstruct sophie pulmonar y disease 253828963 Completed 202312/20/2024 Not Available [facility] 5 09:42:00 Fracture of multiple ribs 1373509 Completed 202312/20/2024 Not Available [facility] 5 09:42:01 Acidosis 15403610 Completed 202312/20/2024 Not Available [facility] 5 09:42:02 Acute on chronic hypercap juan respirat ory failure 15805310460 06 Completed 202312/20/2024 Not Available [facility] 5 09:42:03 Acute exacerba tion of chronic obstruct sophie pulmonar y disease 955390816 Completed 202112/20/2024 Not Available [facility] 5 09:42:03 Congesti ve heart failure 07964941 Completed 202312/20/2024 Not Available [facility] 5 09:42:04 Acute on chronic hypoxemi c respirat ory failure [id number] 055231 Completed 202312/20/2024 Not Available [facility] 5 09:42:06 Muscle weakness 16417773 Completed 202112/20/2024 Not Available [facility] 5 09:42:06 Chronic hypercap juan respirat ory failure 383167211 Completed 202312/20/2024 Not Available [facility] 5 09:42:43 Acute pulmonar y edema 49300782 Completed 202312/20/2024 Not Available [facility] 5 09:42:08 Difficul ty walking 583401276 Completed 202212/20/2024 Not Available [facility] 5 09:42:08 Pneumoni a 604399657 Completed 202312/20/2024 Not Available [facility] 5 09:42:09 Congesti ve heart failure 46195802 Completed 202312/20/2024 Not Available [facility] 5 09:42:10 Intersti tial lung disease 031902236 Completed 202112/20/2024 Not Available [facility] 5 09:42:11 Need for personal care assistan ce 25664731939 336371 Completed 202312/20/2024 Not Available [facility] 5 09:42:11 Fall Completed 202212/20/2024 Not Available [facility] 5 09:42:12 Orophary ngeal dysphagi a 22355843 Completed 202112/20/2024 Not Available [facility] 5 09:42:13 Metaboli c encephal opathy 89161652 Completed 202112/20/2024 Not Available [facility] 5 09:42:14 Dyspnea 546413161 Completed 202112/20/2024 Not Available [facility] 5 09:42:14 Anemia 676475742 Active 2024 Not Available [facility] 5 09:42:15 Epilepsy 18749992 Completed 202412/23/2024 BLAS GONZÁLES [address] [facility] [address], [place], [address] , [facility] [employer] 5 13:43:54 Muscle weakness 10770659 Completed 202312/20/2024 Not Available [facility] 5 09:42:16 Difficul ty walking 928186095 Completed 202312/20/2024 Not Available [facility] 5 09:42:17 Chronic cor pulmonal e 74632112 Completed 202312/20/2024 Not Available [facility] 5 09:42:17 Atopic dermatit is 80170172 Completed 202312/20/2024 Not Available [facility] 5 09:42:18 Acute exacerba tion of chronic obstruct sophie pulmonar y disease 451279010 Completed 202312/20/2024 Not Available [facility] 5 09:42:19 Congesti ve heart failure 23564751 Active 2023 Not Available [facility] 5 09:42:19 Paroxysm al atrial fibrilla tion 676467764 Active 2023 Not Available [facility] 5 09:42:20 Major depressi on, single episode 77894411 Completed 202312/20/2024 Not Available [facility] 5 09:42:45 Posttrau matic stress disorder 76951619 Active 2023 Not Available [facility] 5 09:42:20 Dependen ce on enabling machine or device 218318275 Completed 202312/23/2024 IVAP BLAS GONZÁLES [address] [facility] [address], [place], [address] , [facility] 5 13:43:54 Dependen ce on suppleme ntal oxygen 34638455863 7 Completed 202312/20/2024 Not Available [facility] 5 09:42:37 Pulmonar y emphysem a 42766193 Completed 202312/23/2024 BLAS GONZÁLES [address] [facility], [address], [place], [address] , [facility] 5 13:43:54 Anxiety disorder 416381214 Active 2023 Not Available [facility] 5 09:42:22 Inflamma tory dermatos is 415167303 Completed 202312/20/2024 eczema Not Available [facility] 09:42:23 Unsteady when standing 401834269 Completed 202312/20/2024 Not Available [facility] 09:42:24 Muscle weakness 28920681 Completed 202312/20/2024 Not Available [facility] 09:42:25 Dyspnea 388123514 Completed 202312/20/2024 Not Available [facility] 09:42:25 Difficul ty walking 909619773 Completed 202312/20/2024 Not Available [facility] 09:42:26 Somatic syndrome absent 767302169 Completed 202312/23/2024 JOLEEN BISHOP, DESIZING MACHINE OPERATOR HEAD END [address] [facility], [address], [place], [address] , [facility] [employer] 5 13:43:54 Fall Completed 202312/20/2024 Not Available [facility] 09:42:29 Acute on chronic hypoxemi c respirat ory failure 04691791975 906572 Completed 202312/20/2024 Not Available [facility] 09:42:29 Syncope and collapse 691605906 Completed 202312/20/2024 Not Available [facility] 09:42:30 Difficul ty walking 946802757 Completed 202312/20/2024 Not Available [facility] 09:42:31 Pleuriti c pain 6165290 Completed 202212/20/2024 Not Available [facility] 09:42:32 Localize d, primary osteoart hritis of the ankle and/or foot 733307547 Completed 202212/20/2024 Not Available [facility] 5 09:42:33 Pain in left foot 99270513777 9107 Completed 202212/20/2024 Not Available [facility] 09:42:34 Essentia l hyperten lisa 31460370 Completed 202212/23/2024 BLAS GONZÁLES [address] , [address], [place], [address] , [facility] 5 13:43:54 Osteopor osis 27268670 Completed 202212/20/2024 Not Available [facility] 5 09:42:52 Gastroes ophageal reflux disease without esophagi tis 095259880 Completed 202212/23/2024 BLAS GONZÁLES [address] , [address], [place], [address] , [facility] 5 13:43:54 Chronic hypoxemi c respirat ory failure 077628239 Completed 202212/20/2024 Not Available [facility] 5 09:42:36 Senile cataract 68307974 Completed 202212/23/2024 BLAS GONZÁLES [address] , [address], [place], [address] , [facility] 5 13:43:54 Chronic obstruct sophie pulmonar y disease 49930332 Completed 202212/20/2024 BLAS GONZÁLES [address] , [address], [place], [address] , [facility] 5 13:32:43 Disorder of body system 476357585 Completed 202212/20/2024 Not Available [facility] 5 09:42:39 Constipa tion 61397646 Completed 202112/20/2024 Not Available [facility] 5 09:42:40 Abnormal posture 86846127 Completed 202112/20/2024 Not Available [facility] 5 09:42:41 Abnormal posture 39818866 Completed 202112/20/2024 Not Available [facility] 5 09:42:42 Obesity 071969444 Completed 202012/20/2024 Not Available [facility] 5 09:42:44 Dyspnea 224814792 Completed 202012/20/2024 Not Available [facility] 5 09:42:45 Acute on chronic hypercap juan respirat ory failure 95384493880 06 Completed 202012/20/2024 Not Available [facility] 5 09:42:46 Late effect of accident al fall 379344387 Completed 202012/20/2024 Not Available [facility] 5 09:42:47 Unsteady when standing 785275241 Completed 202012/20/2024 Not Available [facility] 5 09:42:48 Syncope and collapse 432077209 Completed 202012/20/2024 Not Available [facility] 5 09:42:50 Acute exacerba tion of chronic obstruct sophie pulmonar y disease 819209167 Completed 202012/20/2024 Not Available [facility] 5 09:42:51 Muscle weakness 48462480 Completed 202012/20/2024 Not Available [facility] 5 09:42:53 Difficul ty walking 362833384 Completed 202012/20/2024 Not Available [facility] 5 09:42:55 Inflamma tory dermatos is 326019403 Completed 202012/20/2024 eczema Not Available [facility] 5 09:42:55 Bronchit is 81180756 Completed 202012/20/2024 Not Available [facility] 5 09:42:56 Chronic obstruct sophie pulmonar y disease 58643963 Active 2022 BLAS GONZÁLES [facility], [address], [place], [address] , [facility] 5 13:32:43 Seizure 77249157 Active 2024 BLAS GONZÁLES [address] [place] [address], [address], [place], [address] , [facility] 5 13:33:33 Lung mass 114549672 Active 2024 BLAS GONZÁLES [address] [place] [address], [address], [place], [address] , [facility] 5 14:00:34 Bipolar disorder 88478373 Active 2024 BLAS GONZÁLES [address] [place] [address], [address], [place], [address] , [facility] 5 14:04:18 Gastroes ophageal reflux disease 827003510 Active 2024 BLAS GONZÁLES [facility], [address], [place], [address] , [facility] 5 14:16:13 Chronic obstruct sophie pulmonar y disease 60921309 Completed 202312/20/2024 Not Available [facility] 5 10:29:12 Depressi ve disorder 43679674 Active BLAS Rollins [address] [place] [address], [address], [place], [address] , [facility] 5 10:21:22 Acute exacerba tion of chronic obstruct sophie pulmonar y disease 385324245 Completed 12/20/2024 Not Available [facility] 5 09:41:59 Gastroes ophageal reflux disease 745798905 Completed 12/23/2024 BLAS GONZÁLES [address] [facility], [address], [place], [address] , [place] [facility] 5 14:16:13 Bipolar disorder 25257717 Completed 12/20/2024 BLAS GONZÁLES [address] [facility], [address], [place], [address] , [facility] 5 14:04:18 Insomnia 577209599 Completed 12/20/2024 Not Available [facility] 09:42:54 Tachycar fiordaliza 3693002 Completed 12/23/2024 BLAS GONZÁLES [address] [facility], [address], [place], [address] , [facility] 5 13:43:54 Problem Notes None recorded. Medical Equipment None Reported. Allergies Allergen ID Allergen Name Allergen Category Reaction Reaction Severity Criticality Documentation Date Start Date Code Code System Note Provider Name and Address Organization Details Recorded Time 161 Haldol medicatio n Not available Not available Not available 09/01/2015 39727 9 RxNorm Not Available Not Available Not Available 162 codeine medicatio n Not available Not available Not available 09/01/20152021 2670 RxNorm Restl ess/R jai Not Available Not Available Not Available 163 Substance with sulfonami de structure and antibacte rial mechanism of action (substanc e) medicatio n Not available Not available Not available 09/01/2015 00878 8003 SNOMED Not Available Not Available Not Available 95267 haloperid ol medicatio n Not available Not available Not available 12/20/20242021 5093 RxNorm Palpa tions Not Available Not Available Not Available 55285 fluoxetin e medicatio n Not available Not [...] 103 mm[Hg] 52 mm[Hg] BLAS GONZÁLES [address] [facility], [address], [place], [address], [place] [facility] [employer] 5 14:47:16 Social History Question Answer Notes LastModified by Organizat ion Details LastModified Time Tobacco Smoking Status Current Every Day Smoker Not Available [employer] 09/23/2020 03:13:02 How Many Years Have You Smoked Tobacco? 50 [id number] Information not available 09/23/2020 Sex: Unknown Functional [...] Code Diagnosis Note 363 Tiffany Pérez at [facility] on [address] [facility] [facility] [place] [address] 09/01/2015 10:08:10 11/04/2015 03:49:10 Acute exacerbation of chronic obstructive pulmonary disease 544333266 J44.1 pt will continue her nebs treatments , Spiriva, prednisone taper, theodur, advair. continue on bipap, start PT/OT Gastroesop hageal reflux disease 982681735 K21.9 continue prilosec Bipolar disorder 5201869 4 F31.9 as pt requested we will increase abilify to 15 mg qd from 10 mg, continue lamictal as ordered which is not a change from [facility]. she can also see [facility] for this diagnosis. Insomnia 213061242 G47.0 0 pt has been on trazodone in the past, not now, will try remeron Tachycardia 7629436 R00. 0 pt was started on atenolol for elevated heart rate. is normal rate now. continue to monitor. [address] E[address] Main Office [address] [facility], [address] [place] [address] 09/02/2015 17:39:53 10/09/2015 03:48:09 Acute exacerbation of chronic obstructive pulmonary disease 178388339 J44.1 acute on chronic, improving. Unclear why on all her inhalers while she is on oral prednisone and DuoNeb. We will hold all her inhalers until she has stopped her DuoNeb updrafts and her steroids have been tapered off. Tachycardia 2538412 R00. 0 responding to atenolol. Patient feels much improved Bipolar disorder 4619329 4 F31.9 no change her current medication s Chronic ob structive pulmonary disease 21609795 J44.9 chronic history, resume baseline meds once stable [id number] BLAS GONZÁLES [address] [place] [address] 12/17/2024 13:30:48 12/25/2024 16:13:18 Chronic obstructive pulmonary disease 81990463 J44.9 sob not r/t exacerbati onbaseline on supplement al O2 at 3 literscont on albuterol, breo neb tx, prednisone ,per discharge summary voriconazo le was mention in med list, unable to verify if she was started on this by pulmonolog y.f/u with pulmonolog ymonitor resp status.RT eval and tx prncont biPAP at hs Congestive heart failure 99965996 I50.9 cont on Lasix 40mg , kcl 10 megcont on metoprolol monitor weight, resp, edema Paroxysmal atrial fibrillation 045542947 I48.0 cont on eliquis , metoprolol monitor for unexplaine d bruising bleeding Seizure 69363923 R56.9 continue Lamictal 200 mg qd and 300 mg at nightmonit or for activityfo llow labs Anemia 487957574 D64.9 symptomati chgb 8.4GI consulted - recommende d to f/u with GI outpatient started on ferrous sulfate dailycont vit b, vit Dfollow labs Lung mass 353474393 R91. 8 11/02/24 ct scan showed small area of consolidat sophie hypodensit y in the left upper lobe slightly increased compared to 11/24/2023 .need to f/u to r/o malignancy . Depressive disorder 9248 9007 F32.A cont on Vilazodone 40 mgcontinue on mirtazapin ehx of suicidal ideat b ion, monitor moods and behavioral changes Bipolar disorder 5739875 4 F31.9 cont on abilify, theophylli ne Gastroesop hageal reflux disease 682907388 K21.9 cont on protonixmo nitor for GI upsetsx if bleeding Osteoporosis 48601061 M8 1.0 cont. on alendronat e, vit D, omega 3 , calcium Allergic rhinitis 684941 04 J30.9 cont fluticason e and mucinex Constipation 00450101 K5 9.00 cont on miralax, senna, lactulose Asthenia 67291809 R53.1 02 dependent, dyspnea with exertionPT /OT eval and treat [id number] FARHAD DAILEY, [facility] [address] [place] [address] 12/25/2024 12:54:10 12/27/2024 14:09:06 Anemia 352775384 D64.9 symptomati chgb 8.4GI consulted - recommende d to f/u with GI outpatient started on ferrous sulfate dailycont vit b, vit Dfollow labs outptf/up with pcp Chronic ob structive pulmonary disease 19232287 J44.9 sob not r/t exacerbati onbaseline on supplement al O2 at 3 literscont on albuterol, breo neb tx, prednisone ,per discharge summary voriconazo le was mention in med list, unable to verify if she was started on this by pulmonolog y.f/u with pulmonolog ycont biPAP at Congestive heart failure 81897784 I50.9 cont on Lasix 40mg , kcl 10 megcont on metoprolol monitor weight, resp, edema at homef/up with pcp Paroxysmal atrial fibrillation 657012341 I48.0 cont on eliquis , metoprolol monitor bleeding at homef/up with pcp Seizure 04493952 R56.9 continue Lamictal 200 mg qd and 300 mg at nightmonit or for activity at homef/up with pcp Lung mass 471560882 R91. 8 11/02/24 ct scan showed small area of consolidat sophie hypodensit y in the left upper lobe slightly increased compared to 11/24/2023 .need to f/u to r/o malignancy outptf/up with pcp Depressive disorder 3548 9007 F32.A cont on Vilazodone 40 mgcontinue on mirtazapin ef/up with pcp Bipolar disorder 3459492 4 F31.9 cont on abilify, theophylli mars/up with pcp Gastroesop hageal reflux disease 851735741 K21.9 cont on protonixmo nitor for GI upset outptf/up with pcp Osteoporosis 41358215 M8 1.0 cont. on alendronat e, vit D, omega 3 , calciumf/u p with pcp Allergic rhinitis 015883 04 J30.9 cont fluticason e and mucinexf/u p with pcp Constipation 41704774 K5 9.00 cont on miralax, senna, lactulosef /up with pcp Asthenia 10011931 R53.1 02 dependent, dyspnea with exertionco mpleted PT/OT eval and treatf/up with pcp Health Concerns Section Related Observation LastModified by Organization Detai ls LastModified Time None Recorded Concern Status LastModified by Organization Details LastModified Time None Recorded Advance Directives Directive None Recorded Payers Encounter Date Sequence Insurance Name Policy Number Policy Garcia Covered Member ID Garcia Member ID Guarantor Name 09/01/2015 1 [place] Lluvia Carleen Lahair [id number] Lluvia Lahair 09/02/2015 1 [place] L[place] Carleen Lahair [id number] Lluvia Lahair 12/17/2024 2 [place] Llu[place] Carleen Lahair [id number] Lluvia Lahair 12/17/2024 1 [place] [employer] Lluvia A Lahair [id number] Lluvia Lahair 12/25/2024 2 [place] Llu[place] Carleen Lahair [id number] Lluvia Lahair 12/25/2024 1 [place] [facility] Lluvia A Lahair [id number] Lluvia Lahair Notes Date Note Type Note Provider Name and Address Organization Details Recorded Time 09/01/2015 text/html HPI patient admitted to [facility] for COPD exacerbation, acute on chronic resp failure, started on Bipap and atenolol for tachycardia? Mellisa Georges, DESIZING MACHINE OPERATOR HEAD END [address] [facility], [address], [place], [address], [facility] [employer] 09/01/2015 10:36:55 09/02/2015 text/html HPI 60-year-old female admitted for respiratory infection with negative chest x-ray, acute exacerbation of COPD, but he by hypoxemia and hypercapnia. She required ICU stay for administration of BiPAP. Chest x-ray did not show acute infiltrate. She was treated however with steroids, updraft and antibiotics. History of bipolar disorder as well is active smoker? Mohsen Dos Santos MD [address] [facility], [address], [place], [address], [facility] 09/02/2015 17:45:59 12/17/2024 text/html This is a 69-year-old female patient seen for Transition of care and re-admission. PMH of chronic hypoxic respiratory failure secondary to COPD, chronic CO2 retention, Afib, anxiety/depression, PTSD,obesity, osteoporosis, lung mass,PNA. She was sent to [facility] for evaluation of worsening shortness of breath; medical workup appeared to be at her baseline with the exception of anemia, baseline she usually around 10, labs showed hgb 8.4. GI was consulted and due to no concerns for a GI bleed, patient is recommended to follow up outpatient for EGD/colonoscopy. Per nursing she has been at her baseline since returning gonz[place], there are no acute concerns. BLAS GONZÁLES [address] [facility], [address], [place], [address], [facility] 12/23/2024 16:38:36 12/25/2024 text/html This is a 69-year-old female patient seen for discharge summary. PMH of chronic hypoxic respiratory failure secondary to COPD, chronic CO2 retention, Afib, anxiety/depression, PTSD, obesity, osteoporosis, lung mass,PNA. She was sent to [facility] for evaluation of worsening shortness of breath; [...] plan on finding her a pcp in [place] where they live. Patient is stable for [place] home with meds and services. GÉNESIS FERNÁNDEZ [address] [facility], [address], [place], [address], [facility] 12/26/2024 07:14:05 OBGyn Episode No OBEpisode recorded.
--- OUTSIDE RECORDS SUMMARY | 2025-02-01 11:17 | XMS_ITS | Continuity of Care Document ---
Author Organization [place] [facility], [facility] Address [address] [place] [address] Care Team Providers Care Estimator Printing Plate Making Name Role Phone NEYDA BRADLEY Primary Care [...] for this as well as list of [place] health providers and a copy of today's [...] Sensorine ural hearing loss of bilateral ears [id number] Active 2016 Sensorine ural hearing loss, bilateral ; Note: Date Diagnosed : 01/27/2017 10:56 AM (H90.3) Not Available [facility] 4 03:15:55 Bilateral diffuse otitis externa [id number] 49820 Active 2019 Diffuse otitis externa, bilateral ; Note: Date Diagnosed : 02/08/2020 12:16 PM (H60.313) Not Available [facility] 4 03:15:55 Dizziness and giddiness [id number] Active 2016 Dizziness and giddiness ; Note: Date Diagnosed : 01/27/2017 11:15 AM (R42) Not Available [facility] 4 03:15:55 Posterior rhinorrhe a 09442579 Active 2019 Postnasal drip; Note: Date Diagnosed : 02/08/2020 12:53 PM (R09.82) Not Available [facility] 4 03:15:56 Problem Notes None recorded. Procedures Surgical History Date Name Laterality Status Provider Name and Address Organization Details Recorded Time 01/15/2025 Comp Audio with Tymps (24685 & 60931) completed DEL KOO, [address], [address], [facility] - [facility] 01/15/2025 11:26:17 Imaging Results None recorded. Procedure Notes None recorded. Medical Equipment None Reported. Allergies Allergen ID Allergen Name Allergen Category Reaction Reaction Severity Criticality Documentation Date Start Date Code Code System Note Provider Name and Address Organization Details Recorded Time 766382 haloperid ol lactate medicatio n other Not available Not available 04/10/2024 01864 3 RxNorm React ion: unkno wn, unspe cifie d;; Not Available [facility] 4 01:14:03 927408 codeine sulfate medicatio n other Not available Not available 04/10/2024 20532 RxNorm React ion: unkno wn, unspe cifie d;; Not Available [facility] 4 01:14:04 840730 Substance with sulfonami de structure and antibacte rial mechanism of action (substanc e) medicatio n other Not available Not available 04/10/2024 57814 8003 SNOMED React ion: unkno wn, unspe cifie d;; Not Available [facility] 4 01:14:05 Medications Name Sig Start Date [...] nebulizati on 2016 active Medicatio n ID: [id number] Br and Name: albuterol sulfate S end Method: E-Prescri bed Subs Allowed: subs OK Medica tionGener icName: albuterol sulfate Not Available Not Available Not Available Colace 100 mg capsule 2016 active Medicatio n ID: [id number] Br and Name: Colace Se nd Method: [...] release,12 hr 2016 active Medicatio n ID: [id number] Du ration Value: 30 Brand Name: theophyll [...] by mouth 2016 active Medicatio n ID: [id number] Du ration Value: 30 Brand Name: Claritin Send Method: E-Prescri bed Subs Allowed: subs OK Medica tionGener icName: Claritin Not Available Not Available Not Available Artificial Tears (dextran 70-hyprome llose) eye drops 2016 active Medicatio n ID: [id number] Br and Name: Artificia l Tears(dex [id number] ) Send Method: E-Prescri bed Subs Allowed: subs OK Medica tionGener icName: Artificia l Tears(dex [id number] ) Not Available Not Available Not Available [...] mg tablet 2016 active Medicatio n ID: [id number] Du ration Value: 30 Brand Name: atenolol [...] magnesium) tablet 2016 active Medicatio n ID: [id number] Du ration Value: 30 Brand Name: magnesium oxide Sen d Method: E-Prescri bed Subs Allowed: subs OK Specia l Instructi on: TK 1 T PO QD Medica tionGener icName: magnesium oxide Not Available Not Available Not Available lorazepam 0.5 mg tablet 2016 active Medicatio n ID: [id number] Du ration Value: 30 Brand Name: lorazepam Send Method: E-Prescri bed Subs Allowed: subs OK Specia l Instructi on: TK 1 T PO QHS PRF SLEEP Med icationGe nericName : lorazepam Not Available Not Available Not Available morphine 10 mg/mL intravenou s solution 2016 active Medicatio n ID: [id number] Br and Name: morphine Send Method: E-Prescri bed Subs Allowed: subs OK Medica tionGener icName: morphine Not Available Not Available Not Available pantoprazo le 40 mg tablet,del ayed release TAKE 1 TABLET BY MOUTH EVERY DAY IN THE MORNING active Not Available Not Available No t Available Advair Diskus 250 mcg-50 mcg/dose powder for inhalation 2016 active Medicatio n ID: [id number] Br and Name: Advair Diskus Se nd Method: E-Prescri bed Subs Allowed: subs OK Medica tionGener icName: Advair Diskus Not Available Not Available Not Available nicotine 21 mg/24 hr daily transderma l patch 2016 active Medicatio n ID: [id number] Du ration Value: 28 Brand Name: nicotine [...] mg tablet 2016 active Medicatio n ID: [id number] Du ration Value: 30 Brand Name: lamotrigi [...] sustained- release 2016 active Medicatio n ID: [id number] Du ration Value: 30 Brand Name: bupropion HCl Send Method: E-Prescri bed Subs Allowed: subs OK Specia l Instructi on: TK 1 T PO QAM Medic ationGene ricName: bupropion HCl Not Available Not Available Not Available aripiprazo le 15 mg tablet 2016 active Medicatio n ID: [id number] Du ration Value: 30 Brand Name: aripipraz [...] inhalation capsules 2016 active Medicatio n ID: [id number] Du ration Value: 30 Brand Name: Spiriva [...] mg tablet 2016 active Medicatio n ID: [id number] Du ration Value: 30 Brand Name: Viibryd [...] SNOMED-CT Code Diagnosis ICD10 Code Diagnosis Note [id number] KALEN MAC MD [facility] [address] [address] 01/15/2025 10:56:41 01/15/2025 11:53:57 Sensorineural hearing loss of bilateral ears [id number] H90.3 [id number] INDIGO JUDGE [facility] [address] [address] 01/15/2025 11:23:44 01/16/2025 07:43:57 Sensorineural hearing loss of bilateral ears 564858514 H90.3 Audiologic al evaluation results: 01/15/2025 Right [...] ID Guarantor Name 01/15/2025 1 [place] [employer] Lluvia Cartagena [id number] Lluvia Cartagena 01/15/2025 2 [place] [facility] Lluvia Cartagena [id number] Lluvia Cartagena Notes Date Note Type Note Provider Name and Address Organization Details Recorded Time 01/15/2025 text/html HT medical clearance, known asymmetrical SNHL >>AD DEL KOO, INDIG[facility] [address] [place] [address], [phone], [place] [facility] 01/15/2025 11:27:24 01/15/2025 text/html 69 year old florencia mesa presents to the office for hearing evaluation. She currently lives at home with her daughter but had been living in nursing homes and group homes over the past few years. She also presents here today with her HELP DESK INTERN. She has been using an over the counter hearing aid in the right ear with poor result. She has known profound hearing loss on the left from a left sudden hearing loss in the past. KALEN MAC MD [address], [address], [facility] 01/15/2025 20:55:02 OBGyn Episode No OBEpisode recorded.
--- OUTSIDE RECORDS SUMMARY | 2025-02-01 11:17 | XMS_ITS | Encounter Summary ---
Author Organization [facility] Address [address] [place] [address] Care Team Providers Care Cdl A Driver Name Role Phone Yann Manzanares MD Primary Care Provider [phone] Encounter Details Date Type Department Care Team (Late st Contact Info) Description 11/20/2024 Lab Requisition [facility] - Main Lab [address] [facility] [place] [address] Janice Núñez MD [address] [place] [address] Chronic obstructive pulmonary disease, unspecified (CMS/HCC) Social [...] mmol/L LAB CHEMISTRY METHOD 11/20/2024 10:56 AM [facility] Potassium 4.3 3.5 - 5.5 mmol/L LAB CHEMISTRY METHOD 11/20/2024 10:56 AM [facility] Chloride 87(L) 96 - 110 mmol/L LAB CHEMISTRY METHOD 11/20/2024 10:56 AM [facility] CO2 44(HH) 21 - 32 mmol/L LAB CHEMISTRY METHOD 11/20/2024 10:56 AM [facility] Anion Gap 3 3 - 11 LAB CHEMISTRY METHOD 11/20/2024 10:56 AM [facility] Glucose 83 70 - 100 mg/dL LAB CHEMISTRY METHOD 11/20/2024 10:56 AM [facility] BUN 17 5 - 25 mg/dL LAB CHEMISTRY METHOD 11/20/2024 10:56 AM [facility] Creatinine 0.95 0.50 - 1.10 mg/dL LAB CHEMISTRY METHOD 11/20/2024 10:56 AM [facility] eGFR 65 >=60 mL/min/1. 73m2 LAB CHEMISTRY METHOD 11/20/2024 10:56 AM [facility] Comment:Calculation based on the??Chronic Kidney Disease Epidemiology Collaboration (CKD-EPI) equation refit??without adjustment for race. BUN/Creatinine Ratio 17.9 LAB CHEMISTRY METHOD 11/20/2024 10:56 AM [facility] Calcium 9.2 8.5 - 10.5 mg/dL LAB CHEMISTRY METHOD 11/20/2024 10:56 AM [facility] Blood Venous blood specimen / Unknown Venipuncture / Unknown 11/20/2024 6:24 AM EST 11/20/2024 9:31 AM EST us Janice Núñez MD LAB BLOOD ORDERABLES Final Resul t [facility] [address] [place] [address], * (ABNORMAL) Complete blood count (11/20/2024 6:24 AM EST) [facility] WBC 8.4 4.8 - 10.8 K/mcL LAB HEMETOLOGY METHOD 11/20/2024 10:10 AM [facility] RBC 3.70(L) 3.80 - 4.80 M/mcL LAB HEMETOLOGY METHOD 11/20/2024 10:10 AM [facility] Hemoglobin 9.5(L) 11.5 - 16.0 g/dL LAB HEMETOLOGY METHOD 11/20/2024 10:10 AM [facility] Hematocrit 34.1(L) 35.0 - 47.0 % LAB HEMETOLOGY METHOD 11/20/2024 10:10 AM [facility] MCV 93.4 79.0 - 98.0 FL LAB HEMETOLOGY METHOD 11/20/2024 10:10 AM [facility] MCH 26.0(L) 27.0 - 32.0 pcg LAB HEMETOLOGY METHOD 11/20/2024 10:10 AM [facility] MCHC 27.9(L) 32.0 - 37.0 g/dL LAB HEMETOLOGY METHOD 11/20/2024 10:10 AM [facility] RDW 14.9 11.0 - 15.0 % LAB HEMETOLOGY METHOD 11/20/2024 10:10 AM [facility] Platelets 512(H) 130 - 400 K/mcL LAB HEMETOLOGY METHOD 11/20/2024 10:10 AM [facility] MPV 9.8 7.0 - 11.0 FL LAB HEMETOLOGY METHOD 11/20/2024 10:10 AM [facility] NRBC 0.0 <1.0 % LAB HEMETOLOGY METHOD 11/20/2024 10:10 AM EST [facility] NRBC Absolute 0.00 <0.10 K/mcL LAB HEMETOLOGY METHOD 11/20/2024 10:10 AM EST [facility] Blood Venous blood specimen / Unknown Venipuncture / Unknown 11/20/2024 6:24 AM EST 11/20/2024 9:31 AM EST us Janice Núñez MD LAB BLOOD ORDERABLES Final Resul t [facility] [address] [place] [address], documented in this encounter Visit Diagnoses Diagnosis Chronic obstructive pulmonary disease, unspecified (CMS/HCC) documented in this encounter Care Teams Cdl A Driver Relationship Specialty Start Date End Date Yann Manzanares MD [address] [facility] [address] [place] [address] PCP - General 02/08/24 documented as of this encounter
--- OUTSIDE RECORDS SUMMARY | 2025-02-01 11:17 | XMS_ITS | Clinical Summary ---
Author Organization [facility] Address [address] [place] [address] Care Team Providers Care Head Bellhop Captain Name Role Phone Debra Ji MD Primary Care Provider [phone] Allergies Active Allergy Reactions Criticality Noted Date [...] 0 Active zoster vaccine live, PF, (ZOSTAVAX) 63912 UNT/0.65ML injection Inject 0.65 mL under the [...] age to complete this topic Care Teams Head Bellhop Captain Relationship Specialty Start Date End Date Debra Ji MD PCP - General Internal Medicine 06/27/17
--- OUTSIDE RECORDS SUMMARY | 2025-02-01 11:17 | XMS_ITS | Encounter Summary ---
Author Organization [facility] Address [address] [place] [address] Care Team Providers Care Sole Filler Name Role Phone Yann Manzanares MD Primary Care Provider Encounter Details Date Type Department Care Team (Late st Contact Info) Description 12/11/2024 Lab Requisition [facility] - Main Lab [address] [facility] [place] [address] Glenroy Goff MD [address] [place] [address] [address] [place], [address] Chronic obstructive pulmonary disease, unspecified (CMS/HCC) [...] mmol/L LAB CHEMISTRY METHOD 12/11/2024 11:11 AM [facility] Potassium 4.1 3.5 - 5.5 mmol/L LAB CHEMISTRY METHOD 12/11/2024 11:11 AM [facility] Chloride 84(L) 96 - 110 mmol/L LAB CHEMISTRY METHOD 12/11/2024 11:11 AM [facility] CO2 43(HH) 21 - 32 mmol/L LAB CHEMISTRY METHOD 12/11/2024 11:11 AM [facility] Anion Gap 4 3 - 11 LAB CHEMISTRY METHOD 12/11/2024 11:11 AM [facility] Glucose 89 70 - 100 mg/dL LAB CHEMISTRY METHOD 12/11/2024 11:11 AM [facility] BUN 17 5 - 25 mg/dL LAB CHEMISTRY METHOD 12/11/2024 11:11 AM [facility] Creatinine 0.83 0.50 - 1.10 mg/dL LAB CHEMISTRY METHOD 12/11/2024 11:11 AM [facility] eGFR 76 >=60 mL/min/1. 73m2 LAB CHEMISTRY METHOD 12/11/2024 11:11 AM [facility] Comment:Calculation based on the??Chronic Kidney Disease Epidemiology Collaboration (CKD-EPI) equation refit??without adjustment for race. BUN/Creatinine Ratio 20.5 LAB CHEMISTRY METHOD 12/11/2024 11:11 AM [facility] Calcium 8.6 8.5 - 10.5 mg/dL LAB CHEMISTRY METHOD 12/11/2024 11:11 AM [facility] Blood Venous blood specimen / Unknown Venipuncture / Unknown 12/11/2024 6:30 AM EST 12/11/2024 9:22 AM EST us Glenroy Goff MD LAB BLOOD ORDERABLES Final Resul t [facility] [address] [place] [address], * (ABNORMAL) Complete blood count (12/11/2024 6:30 AM EST) [facility] WBC 7.2 4.8 - 10.8 K/mcL LAB HEMETOLOGY METHOD 12/11/2024 11:11 AM [facility] RBC 3.00(L) 3.80 - 4.80 M/mcL LAB HEMETOLOGY METHOD 12/11/2024 11:11 AM [facility] Hemoglobin 7.5(L) 11.5 - 16.0 g/dL LAB HEMETOLOGY METHOD 12/11/2024 11:11 AM [facility] Hematocrit 26.9(L) 35.0 - 47.0 % LAB HEMETOLOGY METHOD 12/11/2024 11:11 AM [facility] MCV 89.4 79.0 - 98.0 FL LAB HEMETOLOGY METHOD 12/11/2024 11:11 AM [facility] MCH 24.9(L) 27.0 - 32.0 pcg LAB HEMETOLOGY METHOD 12/11/2024 11:11 AM [facility] MCHC 27.9(L) 32.0 - 37.0 g/dL LAB HEMETOLOGY METHOD 12/11/2024 11:11 AM [facility] RDW 15.7(H) 11.0 - 15.0 % LAB HEMETOLOGY METHOD 12/11/2024 11:11 AM [facility] Platelets 399 130 - 400 K/mcL LAB HEMETOLOGY METHOD 12/11/2024 11:11 AM [facility] MPV 10.0 7.0 - 11.0 FL LAB HEMETOLOGY METHOD 12/11/2024 11:11 AM [facility] NRBC 0.0 <1.0 % LAB HEMETOLOGY METHOD 12/11/2024 11:11 AM EST [facility] NRBC Absolute 0.00 <0.10 K/mcL LAB HEMETOLOGY METHOD 12/11/2024 11:11 AM EST [facility] Blood Venous blood specimen / Unknown Venipuncture / Unknown 12/11/2024 6:30 AM EST 12/11/2024 9:22 AM EST us Glenroy Goff MD LAB BLOOD ORDERABLES Final Resul t [facility] [address] [place] [address], documented in this encounter Visit Diagnoses Diagnosis Chronic obstructive pulmonary disease, unspecified (CMS/HCC) documented in this encounter Care Teams Sole Filler Relationship Specialty Start Date End Date Yann Manzanares MD [address] [facility] [address] [place] [address] PCP - General 02/08/24 documented as of this encounter
--- OUTSIDE RECORDS SUMMARY | 2025-02-01 11:17 | XMS_ITS | Data Portability ---
Author Organization [place] [facility], Allergy Address [address] [place] [address] Care Team Providers Care Shot Hole Shooter Name Role Phone BRADLEY LICHAMarcos Primary Care Provider [phone] Assessment Encounter Date Assessment Date Assessment LastModified [...] for this as well as list of [place] health providers and a copy of today's audiogram. [email or web address] Not available 01/15/2025 11:55:07 01/15/2025 01/15/2025 Potential BiCros candidate - refer to provider Not available 01/15/2025 11:26:15 Plan of Treatment [...] Sensorine ural hearing loss of bilateral ears [id number] Active 2016 Sensorine ural hearing loss, bilateral ; Note: Date Diagnosed : 01/27/2017 10:56 AM (H90.3) Not Available [facility] 4 03:15:55 Bilateral diffuse otitis externa [id number] 16527 Active 2019 Diffuse otitis externa, bilateral ; Note: Date Diagnosed : 02/08/2020 12:16 PM (H60.313) Not Available [facility] 4 03:15:55 Dizziness and giddiness 405282263 Active 2016 Dizziness and giddiness ; Note: Date Diagnosed : 01/27/2017 11:15 AM (R42) Not Available [facility] 4 03:15:55 Posterior rhinorrhe a 71598129 Active 2019 Postnasal drip; Note: Date Diagnosed : 02/08/2020 12:53 PM (R09.82) Not Available [facility] 4 03:15:56 Problem Notes None recorded. Procedures Surgical History Date Name Laterality Status Provider Name and Address Organization Details Recorded Time 01/15/2025 Comp Audio with Tymps (35499 & 07540) completed DEL KOO, [address],[place] [address], [place], [address], [facility] - [facility] 01/15/2025 11:26:17 Imaging Results Imaging Date Name Status LastModified by Organiz ation Details LastModified Time 01/15/2025 audiogram completed BARCODE Information no t available 01/15/2025 15:18:29 Procedure Notes None recorded. Medical Equipment None Reported. Allergies Allergen ID Allergen Name Allergen Category Reaction Reaction Severity Criticality Documentation Date Start Date Code Code System Note Provider Name and Address Organization Details Recorded Time 463754 haloperid ol lactate medicatio n other Not available Not available 04/10/2024 47392 3 RxNorm React ion: unkno wn, unspe cifie d;; Not Available [facility] 4 01:14:03 283093 codeine sulfate medicatio n other Not available Not available 04/10/2024 52014 RxNorm React ion: unkno wn, unspe cifie d;; Not Available [facility] 4 01:14:04 086922 Substance with sulfonami de structure and antibacte rial mechanism of action (substanc e) medicatio n other Not available Not available 04/10/2024 54018 8003 SNOMED React ion: unkno wn, unspe cifie d;; Not Available [facility] 4 01:14:05 Medications Name Sig Start Date [...] nebulizati on 2016 active Medicatio n ID: [id number] Br and Name: albuterol sulfate S end Method: E-Prescri bed Subs Allowed: subs OK Medica tionGener icName: albuterol sulfate Not Available Not Available Not Available Colace 100 mg capsule 2016 active Medicatio n ID: [id number] Br and Name: Colace Se nd Method: [...] release,12 hr 2016 active Medicatio n ID: [id number] Du ration Value: 30 Brand Name: theophyll [...] by mouth 2016 active Medicatio n ID: [id number] Du ration Value: 30 Brand Name: Claritin Send Method: E-Prescri bed Subs Allowed: subs OK Medica tionGener icName: Claritin Not Available Not Available Not Available Artificial Tears (dextran 70-hyprome llose) eye drops 2016 active Medicatio n ID: [id number] Br and Name: Artificia l Tears(dex [id number] ) Send Method: E-Prescri bed Subs Allowed: subs OK Medica tionGener icName: Artificia l Tears(dex [id number] ) Not Available Not Available Not Available [...] mg tablet 2016 active Medicatio n ID: [id number] Du ration Value: 30 Brand Name: atenolol [...] magnesium) tablet 2016 active Medicatio n ID: [id number] Du ration Value: 30 Brand Name: magnesium oxide Sen d Method: E-Prescri bed Subs Allowed: subs OK Specia l Instructi on: TK 1 T PO QD Medica tionGener icName: magnesium oxide Not Available Not Available Not Available lorazepam 0.5 mg tablet 2016 active Medicatio n ID: [id number] Du ration Value: 30 Brand Name: lorazepam Send Method: E-Prescri bed Subs Allowed: subs OK Specia l Instructi on: TK 1 T PO QHS PRF SLEEP Med icationGe nericName : lorazepam Not Available Not Available Not Available morphine 10 mg/mL intravenou s solution 2016 active Medicatio n ID: [id number] Br and Name: morphine Send Method: E-Prescri bed Subs Allowed: subs OK Medica tionGener icName: morphine Not Available Not Available Not Available pantoprazo le 40 mg tablet,del ayed release TAKE 1 TABLET BY MOUTH EVERY DAY IN THE MORNING active Not Available Not Available No t Available Advair Diskus 250 mcg-50 mcg/dose powder for inhalation 2016 active Medicatio n ID: [id number] Br and Name: Advair Diskus Se nd Method: E-Prescri bed Subs Allowed: subs OK Medica tionGener icName: Advair Diskus Not Available Not Available Not Available nicotine 21 mg/24 hr daily transderma l patch 2016 active Medicatio n ID: [id number] Du ration Value: 28 Brand Name: nicotine [...] mg tablet 2016 active Medicatio n ID: [id number] Du ration Value: 30 Brand Name: lamotrigi [...] sustained- release 2016 active Medicatio n ID: [id number] Du ration Value: 30 Brand Name: bupropion HCl Send Method: E-Prescri bed Subs Allowed: subs OK Specia l Instructi on: TK 1 T PO QAM Medic ationGene ricName: bupropion HCl Not Available Not Available Not Available aripiprazo le 15 mg tablet 2016 active Medicatio n ID: [id number] Du ration Value: 30 Brand Name: aripipraz [...] inhalation capsules 2016 active Medicatio n ID: [id number] Du ration Value: 30 Brand Name: Spiriva [...] mg tablet 2016 active Medicatio n ID: [id number] Du ration Value: 30 Brand Name: Sabrina S end Method: E-Prescri bed Subs Allowed: subs OK Specia l Instructi on: TK 1 T PO QAM Medic ationGene ricName: Dayanbryd Not Available Not Available Not Available Eliquis [...] SNOMED-CT Code Diagnosis ICD10 Code Diagnosis Note [id number] KALEN MAC MD [facility] [address] [address] 01/15/2025 10:56:41 01/15/2025 11:53:57 Sensorineural hearing loss of bilateral ears [id number] H90.3 [id number] INDIGO JUDGE [facility] [address] [address] 01/15/2025 11:23:44 01/16/2025 07:43:57 Sensorineural hearing loss of bilateral ears 051659803 H90.3 Audiologic al evaluation results: 01/15/2025 Right [...] ID Guarantor Name 01/15/2025 1 [place] [employer] Lluvia A Lahair [id number] Lluvia A Lahair 01/15/2025 2 [place] [facility] Lluvia A Lahair [id number] Lluvia A Lahair 01/15/2025 1 [place] [employer] Lluvia A Lahair [id number] Lluvia A Lahair 01/15/2025 2 [place] Lluvia A Lahair [id number] Lluvia A Lahair Notes Date Note Type Note Provider Name and Address Organization Details Recorded Time 01/15/2025 text/html HT medical clearance, known asymmetrical SNHL >>AD DEL KOO, AUD [address] [place] [place] [address], [place], [address], [facility] - [facility] 01/15/2025 11:27:24 01/15/2025 text/html 69 year old florencia mesa presents to the office for hearing evaluation. She currently lives at home with her daughter but had been living in nursing homes and group homes over the past few years. 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 She has been using an over the counter hearing aid in the right ear with poor result. She has known profound hearing loss on the left from a left sudden hearing loss in the past. KALEN MAC MD [address] [place] [address], [place], [address], [facility] - [facility] 01/15/2025 20:55:02 OBGyn Episode No OBEpisode recorded.
--- OUTSIDE RECORDS SUMMARY | 2025-02-01 11:17 | XMS_ITS | Continuity of Care Document ---
Author Organization [place] - [facility], [facility] Address [address] [place] [phone] Care Team Providers Care Line Worker Name Role Phone NEYDA BRADLEY Primary Care [...] Sensorine ural hearing loss of bilateral ears [id number] Active 2016 Sensorine ural hearing loss, bilateral ; Note: Date Diagnosed : 01/27/2017 10:56 AM (H90.3) Not Available [facility] 4 03:15:55 Bilateral diffuse otitis externa [id number] 19043 Active 2019 Diffuse otitis externa, bilateral ; Note: Date Diagnosed : 02/08/2020 12:16 PM (H60.313) Not Available [facility] 4 03:15:55 Dizziness and giddiness [id number] Active 2016 Dizziness and giddiness ; Note: Date Diagnosed : 01/27/2017 11:15 AM (R42) Not Available [facility] 4 03:15:55 Posterior rhinorrhe a [id number] Active 2019 Postnasal drip; Note: Date Diagnosed : 02/08/2020 12:53 PM (R09.82) Not Available [facility] 4 03:15:56 Problem Notes None recorded. Procedures Surgical History Date Name Laterality Status Provider Name and Address Organization Details Recorded Time 01/15/2025 Comp Audio with Tymps (35998 & 16099) completed DEL KOO, [address],[place] [address], [place], [address], [facility] 01/15/2025 11:26:17 Imaging Results None recorded. Procedure Notes None recorded. Medical Equipment None Reported. Allergies Allergen ID Allergen Name Allergen Category Reaction Reaction Severity Criticality Documentation Date Start Date Code Code System Note Provider Name and Address Organization Details Recorded Time 614939 haloperid ol lactate medicatio n other Not available Not available 04/10/2024 27369 3 RxNorm React ion: unkno wn, unspe cifie d;; Not Available [facility] 4 01:14:03 193481 codeine sulfate medicatio n other Not available Not available 04/10/2024 74176 RxNorm React ion: unkno wn, unspe cifie d;; Not Available [facility] 4 01:14:04 641600 Substance with sulfonami de structure and antibacte rial mechanism of action (substanc e) medicatio n other Not available Not available 04/10/2024 17681 8003 SNOMED React ion: unkno wn, unspe cifie d;; Not Available [facility] 4 01:14:05 Medications Name Sig Start Date [...] nebulizati on 2016 active Medicatio n ID: [id number] Br and Name: albuterol sulfate S end Method: E-Prescri bed Subs Allowed: subs OK Medica tionGener icName: albuterol sulfate Not Available Not Available Not Available Colace 100 mg capsule 2016 active Medicatio n ID: [id number] Br and Name: Colace Se nd Method: [...] release,12 hr 2016 active Medicatio n ID: [id number] Du ration Value: 30 Brand Name: theophyll [...] by mouth 2016 active Medicatio n ID: [id number] Du ration Value: 30 Brand Name: Claritin Send Method: E-Prescri bed Subs Allowed: subs OK Medica tionGener icName: Claritin Not Available Not Available Not Available Artificial Tears (dextran 70-hyprome llose) eye drops 2016 active Medicatio n ID: [id number] Br and Name: Artificia l Tears(dex [id number] ) Send Method: E-Prescri bed Subs Allowed: subs OK Medica tionGener icName: Artificia l Tears(dex h99-nzdxn ) Not Available Not Available Not Available [...] mg tablet 2016 active Medicatio n ID: [id number] Du ration Value: 30 Brand Name: atenolol [...] magnesium) tablet 2016 active Medicatio n ID: [id number] Du ration Value: 30 Brand Name: magnesium oxide Sen d Method: E-Prescri bed Subs Allowed: subs OK Specia l Instructi on: TK 1 T PO QD Medica tionGener icName: magnesium oxide Not Available Not Available Not Available lorazepam 0.5 mg tablet 2016 active Medicatio n ID: [id number] Du ration Value: 30 Brand Name: lorazepam Send Method: E-Prescri bed Subs Allowed: subs OK Specia l Instructi on: TK 1 T PO QHS PRF SLEEP Med icationGe nericName : lorazepam Not Available Not Available Not Available morphine 10 mg/mL intravenou s solution 2016 active Medicatio n ID: [id number] Br and Name: morphine Send Method: E-Prescri bed Subs Allowed: subs OK Medica tionGener icName: morphine Not Available Not Available Not Available pantoprazo le 40 mg tablet,del ayed release TAKE 1 TABLET BY MOUTH EVERY DAY IN THE MORNING active Not Available Not Available No t Available Advair Diskus 250 mcg-50 mcg/dose powder for inhalation 2016 active Medicatio n ID: [id number] Br and Name: Advair Diskus Se nd Method: E-Prescri bed Subs Allowed: subs OK Medica tionGener icName: Advair Diskus Not Available Not Available Not Available nicotine 21 mg/24 hr daily transderma l patch 2016 active Medicatio n ID: [id number] Du ration Value: 28 Brand Name: nicotine [...] mg tablet 2016 active Medicatio n ID: [id number] Du ration Value: 30 Brand Name: lamotrigi [...] sustained- release 2016 active Medicatio n ID: [id number] Du ration Value: 30 Brand Name: bupropion HCl Send Method: E-Prescri bed Subs Allowed: subs OK Specia l Instructi on: TK 1 T PO QAM Medic ationGene ricName: bupropion HCl Not Available Not Available Not Available aripiprazo le 15 mg tablet 2016 active Medicatio n ID: [id number] Du ration Value: 30 Brand Name: aripipraz [...] inhalation capsules 2016 active Medicatio n ID: [id number] Du ration Value: 30 Brand Name: Spiriva [...] mg tablet 2016 active Medicatio n ID: [id number] Du ration Value: 30 Brand Name: Viibryd [...] SNOMED-CT Code Diagnosis ICD10 Code Diagnosis Note [id number] KALEN MAC MD [facility] [address] [phone] 01/15/2025 10:56:41 01/15/2025 11:53:57 Sensorineural hearing loss of bilateral ears [id number] H90.3 64000 INDIGO JUDGE [facility] [address] [address] 01/15/2025 11:23:44 01/16/2025 07:43:57 Sensorineural hearing loss of bilateral ears [id number] H90.3 Audiologic al evaluation results: 01/15/2025 Right [...] ID Guarantor Name 01/15/2025 1 [place]IC[place] B[place]: [employer] Lluvia Joleen Mitzi [id number] Lluvia Cartagena 01/15/2025 2 [place] [facility] Lluvia Cartagena [id number] Lluvia Cartagena Notes Date Note Type Note Provider Name and Address Organization Details Recorded Time 01/15/2025 text/html HT medical clearance, known asymmetrical SNHL >>AD DEL KOO, INDIG[facility] [address] [facility],[address], [address], [place] - [facility] 01/15/2025 11:27:24 01/15/2025 text/html 69 year old florencia mesa presents to the office for hearing evaluation. She currently lives at home with her daughter but had been living in nursing homes and group homes over the past few years. She also presents here today with her PROGRAM CLINICIAN. She has been using an over the counter hearing aid in the right ear with poor result. She has known profound hearing loss on the left from a left sudden hearing loss in the past. KALEN MAC MD [address] [facility],[address], [address], [facility] 01/15/2025 20:55:02 OBGyn Episode No OBEpisode recorded.
--- OUTSIDE RECORDS SUMMARY | 2025-02-01 11:17 | XMS_ITS | Clinical Summary ---
Author Organization [address] [place] [address] Address [address] [place] [address] Phone Care Team Providers Care Preventive Medicine Officer Name Role Phone Yann Manzanares MD Primary Care Provider [phone] Allergies Active Allergy Reactions Criticality Noted Date [...] on CPAP 11/08/2017 Overview (09/12/2024): Life supply/cpap Formerly [facility] [place] Polysomnogram Trilogy treatment study. Date 09/06/2019. Wt [...] Team Description 12/13/2024 Telephone Internal Medicine - [place] [address] [facility] [address] [place] [address] Isamar Garcia MA Request For Order(s) ([facility] Home Health Cert 09/21/24-11/19/24 Plan Of Care ) 12/13/2024 Telephone Internal Medicine [facility] [address] [facility] [address] [place] [address] Isamar Garcia MA Request For Order(s) ([facility] retargeting Home Health Order # [id number]) 12/11/[address] [facility] - Main Lab [address] [place] [phone] Glenroy Goff MD Chronic obstructive pulmonary disease, unspecified (CMS/HCC) 12/05/2024 Telephone Lung Screening Program - [place] [address] [facility] [address] [place] [phone] Joelle Mccain MA 11/29/2024 Telephone Internal Medicine - [place] [address] [facility] [address] [place] [phone] Yann Manzanares MD 11/20/2024 Lab Requisition [facility] Lab [address] [place] [phone] Janice Núñez MD Chronic obstructive pulmonary disease, unspecified ([facility]/HCC) 11/09/2024 Lab Requisition [facility] Lab [address] [place] [phone] Janice Núñez MD Chronic obstructive pulmonary disease, unspecified ([facility]/HCC) 11/08/2024 Telephone Lung Screening Program - [place] [address] [facility] [address] [place] [phone] Joelle Mccain [place] Appointment ([facility]) 11/03/2024 Lab Requisition [facility] Lab [address] [place] [phone] Janice Núñez MD Chronic obstructive pulmonary disease, unspecified ([facility]/HCC) from Last 3 Months Immunizations Name Administration [...] Comments Depression 10/09/2017 DX:Depression Bipolar I disorder ([facility]/HCC) 06/10/2017 DX: Bipolar I disorder (HCC) Chronic obstructive pulmonar y disease (CMS/HCC) 07/29/2017 DX:Chronic obstructive pulmo nary disease (HCC) Chronic respiratory failure with hypercapnia (CMS/HCC) 08/02/2017 DX:Chronic respiratory failu re with hypercapnia ([facility]) Dependence on supplemental oxygen 06/15/2017 DX:Dependence on [...] Additional history exists Breast Cancer Screening 03/22/2026 03/22/20, 03/21/2024, 02/16/2023, Additional history exists Cholesterol Screening [...] COLONOSCOPY Routine 04/27/2024 DEPRESSION SCREENING Routine 04/16/2024 [facility] SCREENING DIGITAL Routine 03/22/2024 8:50 AM EDT Encounter for screening mammogram for malignant neoplasm of breast [facility] DEXA AXIAL SKELETON Routine 03/22/2024 8:14 AM EDT Encounter for screening for osteoporosis HEPATITIS C SCREENING Routine 02/09/2024 FALLS RISK ASSESSMENT Routine 02/09/2024 LIPID PANEL Routine 02/09/2024 from Last 3 Months or Most Recently Relevant to Health Maintenance Results * (ABNORMAL) Complete blood count (12/11/2024 6:30 AM EST) Only the most recent of4 resultswithin the time period is included. WBC 7.2 4.8 - 10.8 K/mcL LAB HEMETOLOGY METHOD 12/11/2024 11:11 AM [facility] RBC 3.00(L) 3.80 - 4.80 M/mcL LAB HEMETOLOGY METHOD 12/11/2024 11:11 AM [facility] Hemoglobin 7.5(L) 11.5 - 16.0 g/dL LAB HEMETOLOGY METHOD 12/11/2024 11:11 AM [facility] Hematocrit 26.9(L) 35.0 - 47.0 % LAB HEMETOLOGY METHOD 12/11/2024 11:11 AM [facility] MCV 89.4 79.0 - 98.0 FL LAB HEMETOLOGY METHOD 12/11/2024 11:11 AM [facility] MCH 24.9(L) 27.0 - 32.0 pcg LAB HEMETOLOGY METHOD 12/11/2024 11:11 AM [facility] MCHC 27.9(L) 32.0 - 37.0 g/dL LAB HEMETOLOGY METHOD 12/11/2024 11:11 AM [facility] RDW 15.7(H) 11.0 - 15.0 % LAB HEMETOLOGY METHOD 12/11/2024 11:11 AM [facility] Platelets 399 130 - 400 K/mcL LAB HEMETOLOGY METHOD 12/11/2024 11:11 AM [facility] MPV 10.0 7.0 - 11.0 FL LAB HEMETOLOGY METHOD 12/11/2024 11:11 AM [facility] NRBC 0.0 <1.0 % LAB HEMETOLOGY METHOD 12/11/2024 11:11 AM [facility] NRBC Absolute 0.00 <0.10 K/mcL LAB HEMETOLOGY METHOD 12/11/2024 11:11 AM [facility] Blood Venous blood specimen / Unknown Venipuncture / Unknown 12/11/2024 6:30 AM EST 12/11/2024 9:22 AM EST us Glenroy Goff MD LAB BLOOD ORDERABLES Final Resul t [facility] [address] [place] [address], [place] [phone] * (ABNORMAL) Basic metabolic panel (12/11/2024 6:30 AM EST) Only the most recent of4 resultswithin the time period is included. Sodium 131(L) 133 - 145 mmol/L LAB CHEMISTRY METHOD 12/11/2024 11:11 AM [facility] Potassium 4.1 3.5 - 5.5 mmol/L LAB CHEMISTRY METHOD 12/11/2024 11:11 AM [facility] Chloride 84(L) 96 - 110 mmol/L LAB CHEMISTRY METHOD 12/11/2024 11:11 AM [facility] CO2 43(HH) 21 - 32 mmol/L LAB CHEMISTRY METHOD 12/11/2024 11:11 AM [facility] Anion Gap 4 3 - 11 LAB CHEMISTRY METHOD 12/11/2024 11:11 AM [facility] Glucose 89 70 - 100 mg/dL LAB CHEMISTRY METHOD 12/11/2024 11:11 AM [facility] BUN 17 5 - 25 mg/dL LAB CHEMISTRY METHOD 12/11/2024 11:11 AM [facility] Creatinine 0.83 0.50 - 1.10 mg/dL LAB CHEMISTRY METHOD 12/11/2024 11:11 AM EST [facility] eGFR 76 >=60 mL/min/1. 73m2 LAB CHEMISTRY METHOD 12/11/2024 11:11 AM EST [facility] Comment:Calculation based on the??Chronic Kidney Disease Epidemiology Collaboration (CKD-EPI) equation refit??without adjustment for race. BUN/Creatinine Ratio 20.5 LAB CHEMISTRY METHOD 12/11/2024 11:11 AM EST [facility] Calcium 8.6 8.5 - 10.5 mg/dL LAB CHEMISTRY METHOD 12/11/2024 11:11 AM EST [facility] Blood Venous blood specimen / Unknown Venipuncture / Unknown 12/11/2024 6:30 AM EST 12/11/2024 9:22 AM EST Glenroy Goff MD LAB BLOOD ORDERABLES Final Resul t [facility] [address] [place] [address], * Colonoscopy (04/27/2024) Colonoscopy No Interpretation , Abstracted Anatomical Region Laterality Modality Other Historical Provider HEALTH MAINTENANCE Final Result * Depression Screening (04/16/2024) Depression Screening Abstracted Historical Provider HEALTH MAINTENANCE Final Result * LUIS ARMANDO SCREENING DIGITAL (03/22/2024 8:50 AM EDT) Anatomical Region Laterality Modality Mammography 03/21/2024 3:07 PM EDT Narrative 03/22/2024 8:50 AM EDT [facility] Diagnostic Imaging Department [address] [place] [address] Patient: ??DENISA CARTAGENA ?/Age/Sex: 1955 - 68 - F Unit#: ??[id number] ? Location/Status: ??SPDIMAM/REG CLI ? Mnemonic/Ordering Site: ??DIGSC/SPMAM Ordering Physician: ??YANN MANZANARES [facility] Screening Digital - 03/21/24 - Report Status:Signed EXAM: [facility] Screening Digital EXAM DATE AND TIME: 03/21/2024 3:49 PM HISTORY: ??Screening. Left breast biopsy in 2016, pathology benign. COMPARISON: ??02/16/23, 09/21/19, 09/18/18, 09/15/17 TECHNIQUE: Bilateral digital breast tomosynthesis was performed in the CC and MLO projections. Computer aided detection with Mtivity 3D 3.1 was employed. TISSUE DENSITY: b. [...] Procedure Note Erica Treadwell MD - 07/16/2024 [facility] Diagnostic Imaging Department [address] [place] [id number] Patient: DAXDENISA /Age/Sex: 1955 - 68 - F Unit#: [id number] Location/Status: SPDIMA/[facility] CLI Mnemonic/Ordering Site: [facility] Ordering Physician: YANN MANZANARES [facility] Screening Digital - 03/21/24 - Report Status:Signed EXAM: [facility] Screening Digital EXAM DATE AND TIME: 03/21/2024 3:49 PM HISTORY: Screening. Left breast biopsy in 2016, pathology benign. COMPARISON: 02/16/23, 09/21/19, 09/18/18, 09/15/17 TECHNIQUE: Bilateral digital breast tomosynthesis was performed in the CCand MLO projections. Computer aided detection with Mtivity 3D 3.1was employed. TISSUE DENSITY: b. There [...] Signed by: ERICA TREADWELL MD Dic Date/Time: 03/22/24848 Sign date/Time: 03/22/24849 Yann Manzanares MD IMG BI PROCEDURES Final Result * LUIS ARMANDO DEXA AXIAL SKELETON (03/22/2024 8:14 AM EDT) Anatomical Region Laterality Modality Mammography 03/21/2024 3:07 PM EDT Narrative 03/22/2024 8:14 AM EDT [facility] Diagnostic Imaging Department [address] [place], [place] [id number] Patient: ??DENISA CARTAGENA ?/Age/Sex: 1955 - 68 - F Unit#: ??[id number] ? Location/Status: ??SPDIMAM/REG CLI ? Mnemonic/Ordering Site: ??MAMDEXAAX/SPMAM Ordering Physician: ??YANN MANZANARES Luis Armando Dexa Axial Skeleton - [...] probability of hip fracture of 7.1%. Code 34919 Dictating Physician: ??MILTON MENDEZ MD Electronically Signed by: ??MILTON MENDEZ MD Dic Date/Time: ??03/22/24 0813 Sign date/Time: ??03/22/24 0814 Procedure Note Milton Mendez MD - 07/16/2024 [facility] Diagnostic Imaging Department [address] [place] [id number] Patient: DENISA CARTAGENA /Age/Sex: 1955 68 - F Unit#: [id number] Location/Status: SPDIMAM/REG CLI Mnemonic/[facility]ing [facility] Ordering Physician: YANN MANZANARES [facility] Dexa Axial Skeleton - 03/21/24 [...] density of the femurs bilaterally is 0.912 gm/rp2pdctd is 90% of that of young normals [...] probability of hip fracture of 7.1%. Code 64121 Dictating Physician: MILTON MENDEZ MD Electronically Signed by: MILTON MENDEZ MD Dic Date/Time: 03/22/24812 Sign date/Time: 03/22/24813 Result [facility] Yann Manzanares MD IMG BI PROCEDURES Final Result * Falls Risk Assessment (02/09/2024) [facility] Falls Risk Assessment Abstracted Historical Provider HEALTH MAINTENANCE Final Result * Hepatitis C Screening (02/09/2024) [facility] Hepatitis C Screening Abstracted Result [facility] Historical Provider HEALTH MAINTENANCE Final Result * (ABNORMAL) Lipid panel (02/09/2024) [facility] LDL/HDL Ratio 2 0 - 4 Triglycerides 80 0 - 150 mg/dL Cholesterol 237(A) 0 - 200 mg/dL HDL 103 >=40 mg/dL LDL Cholesterol 118(A) 0 - 100 mg/dL Blood Venous blood specimen / Unknown Result [facility] Provider LAB BLOOD ORDERABLES Iris l Result from Last 3 Months or Most Recently Relevant to Health Maintenance Insurance MEDICARE MEDICAID - [place] Advance Directives Documents on File Type Date Recorded Patient Mental Health Counselor Expl anation Health Care Decision (hx) 04/27/2024 [...] (hx) 12/23/2015 AD VERA DIRECTIVE Care Teams Preventive Medicine Officer Relationship Specialty Start Date End Date Yann Manzanares MD [address] [place] [address] PCP - General 02/08/24
--- OUTSIDE RECORDS SUMMARY | 2025-02-01 11:17 | XMS_ITS | Encounter Summary ---
Author Organization [facility] Address [address] [place] [address] Care Team Providers Care Vulcanized Fiber Unit Operator Name Role Phone Yann Manzanares MD Primary Care Provider [phone] Encounter Details Date Type Department Care Team (Late st Contact Info) Description 11/09/2024 Lab Requisition [facility] - Main Lab [address] [facility] [place] [address] Janice Núñez MD [address] [place] [address] Chronic obstructive pulmonary disease, unspecified (CMS/HCC) Social [...] mmol/L LAB CHEMISTRY METHOD 11/12/2024 4:[address] [facility] Potassium 4.1 3.5 - 5.5 mmol/L LAB CHEMISTRY METHOD 11/12/2024 4:[address] [facility] Chloride 92(L) 96 - 110 mmol/L LAB CHEMISTRY METHOD 11/12/2024 4:[address] [facility] CO2 43(HH) 21 - 32 mmol/L LAB CHEMISTRY METHOD 11/12/2024 4:[address] [facility] Anion Gap 6 3 - 11 LAB CHEMISTRY METHOD 11/12/2024 4:[address] [facility] Glucose 90 70 - 100 mg/dL LAB CHEMISTRY METHOD 11/12/2024 4:[address] [facility] BUN 11 5 - 25 mg/dL LAB CHEMISTRY METHOD 11/12/2024 4:[address] [facility] Creatinine 0.98 0.50 - 1.10 mg/dL LAB CHEMISTRY METHOD 11/12/2024 4:[address] [facility] eGFR 62 >=60 mL/min/1. 73m2 LAB CHEMISTRY METHOD 11/12/2024 4:[address] [facility] Comment:Calculation based on the??Chronic Kidney Disease Epidemiology Collaboration (CKD-EPI) equation refit??without adjustment for race. BUN/Creatinine Ratio 11.2 LAB CHEMISTRY METHOD 11/12/2024 4:[address] [facility] Calcium 9.3 8.5 - 10.5 mg/dL LAB CHEMISTRY METHOD 11/12/2024 4:[address] [facility] Blood Venous blood specimen / Unknown Venipuncture / Unknown 11/12/2024 8:41 AM EST 11/12/2024 11:35 AM EST us Janice Núñez MD LAB BLOOD ORDERABLES Final Resul t [facility] [address] [place] [address], * (ABNORMAL) Complete blood count (11/12/2024 8:41 AM EST) [facility] WBC 6.1 4.8 - 10.8 K/mcL LAB HEMETOLOGY METHOD 11/12/2024 11:[address] [facility] RBC 3.50(L) 3.80 - 4.80 M/mcL LAB HEMETOLOGY METHOD 11/12/2024 11:[address] [facility] Hemoglobin 9.2(L) 11.5 - 16.0 g/dL LAB HEMETOLOGY METHOD 11/12/2024 11:[address] [facility] Hematocrit 32.4(L) 35.0 - 47.0 % LAB HEMETOLOGY METHOD 11/12/2024 11:[address] [facility] MCV 93.9 79.0 - 98.0 FL LAB HEMETOLOGY METHOD 11/12/2024 11:[address] [facility] MCH 26.7(L) 27.0 - 32.0 pcg LAB HEMETOLOGY METHOD 11/12/2024 11:[address] [facility] MCHC 28.4(L) 32.0 - 37.0 g/dL LAB HEMETOLOGY METHOD 11/12/2024 11:[address] [facility] RDW 14.4 11.0 - 15.0 % LAB HEMETOLOGY METHOD 11/12/2024 11:[address] [facility] Platelets 435(H) 130 - 400 K/mcL LAB HEMETOLOGY METHOD 11/12/2024 11:[address] [facility] MPV 9.7 7.0 - 11.0 FL LAB HEMETOLOGY METHOD 11/12/2024 11:[address] [facility] NRBC 0.0 <1.0 % LAB HEMETOLOGY METHOD 11/12/2024 11:55 AM EST [facility] NRBC Absolute 0.00 <0.10 K/mcL LAB HEMETOLOGY METHOD 11/12/2024 11:55 AM EST [facility] Blood Venous blood specimen / Unknown Venipuncture / Unknown 11/12/2024 8:41 AM EST 11/12/2024 11:35 AM EST us Janice Núñez MD LAB BLOOD ORDERABLES Final Resul t [facility] [address] [place] [address], documented in this encounter Visit Diagnoses Diagnosis Chronic obstructive pulmonary disease, unspecified (CMS/HCC) documented in this encounter Care Teams Vulcanized Fiber Unit Operator Relationship Specialty Start Date End Date Yann Manzanares MD [address] [facility] [address] [place] [address] PCP - General 02/08/24 documented as of this encounter
== END 2025-02-01 10:05 | disposition home or self-care (01) ==
LOC: HO.HAP 10:04
PROVIDERS: PCP Student in an Organized Health Care Education/Training Program; Visit Provider Otolaryngology
DX: Z46.1 Encounter for fitting and adjustment of hearing aid (principal); H90.3 Sensorineural hearing loss, bilateral
CPT/HCPCS: 92591

== ENCOUNTER 2025-02-06 14:25 | Outpatient (REF) | payer MEDICARE, MEDICAID, SELFPAY ==
--- NOTE | 2025-02-06 16:50 | MHC.AU.HA2 ---
Hearing Instrument Fitting- Adult- Binaural Date of Visit: 02/06/25 Hearing Instruments Dispensed: Right Ear: Make, Model, Color, Serial Number: Phonak Audeo I 50 R tyson S#[id number] Molded Grid And Parts Inspector Repair Warranty: 03/03/2028 Molded Grid And Parts Inspector Loss and Damage Warranty: 03/03/2028 [facility] Service Plan: 02/06/26 Battery Size: Rechargeable Online Marketing Manager/Slim Tube: 2M Earmold/Dome/CShell/SlimTip: med vented Type of Wax Guard: Cerustop Left Ear: Make, Model, Color, Serial Number: Phonmark Louiseo I CROS tyson Ma#[id number] Molded Grid And Parts Inspector Repair Warranty: 03/03/2028 Molded Grid And Parts Inspector Loss and Damage Warranty: 03/03/2028 [facility] Service Plan: 02/06/26 Battery Size: Rechargeable Online Marketing Manager/Slim Tube: 2M Earmold/Dome/CShell/SlimTip: med vented Type of Wax Guard: Cerustop Accessories/Assistive Technology: [employer] Laboratory Technician CHRISTOPHER S#[id number] Summary of Fitting: Accompanied by daughter. Fit with and oriented to Phonak Audeo I 50 R ANGEL right and CROS L. Verified to DSL adult 5 targets and verified CROS ability to overcome head shadow effect. VC enabled, reviewed use. Demonstrated charging. Reviewed maintenance and precautions. Practiced insertion and removal. Connected to iPhone and installed adriano. Good subjective comfort and benefit reported. Recommendations: Recommendations: Hearing instrument care and maintenance were discussed and practiced. A hearing instrument follow-up was scheduled. Diagnosis Code(s): Primary Diagnosis: H90.3 Bilateral Sensorineural Hearing Loss Signature: Provider: John Denny, CCC-A
--- OUTSIDE RECORDS SUMMARY | 2025-02-06 16:57 | XMS_ITS | Encounter Summary ---
Author Organization [facility] Address [address] [place] [address] Care Team Providers Care Integrity Specialist Name Role Phone Yann Manzanares MD Primary Care Provider [phone] Encounter Details Date Type Department Care Team (Late st Contact Info) Description 10/15/[address] [facility] - Main Lab [address] [facility] [place] [address] Alley San NP [address] [facility] [place] [address] Chronic obstructive pulmonary disease, unspecified (CMS/HCC) Social [...] NP LAB BLOOD ORDERABLES Final Re sult [facility] [address] [place] [address], [place] [phone] * (ABNORMAL) Complete blood count (10/15/2024 8:35 AM EST) [facility] WBC 8.3 4.8 - 10.8 K/mcL LAB HEMETOLOGY METHOD 10/15/2024 12:51 PM EST [facility] RBC 3.80 3.80 - 4.80 [...] LAB HEMETOLOGY METHOD 10/15/2024 12:51 PM EST [facility] Blood Venous blood specimen / Unknown Venipuncture / Unknown 10/15/2024 8:35 AM EST 10/15/2024 11:13 AM EST Alley San [employer] LAB BLOOD ORDERABLES Final Re sult [facility] [address] [place] [address], documented in this encounter Visit Diagnoses Diagnosis Chronic obstructive pulmonary disease, unspecified (CMS/HCC) documented in this encounter Care Teams Integrity Specialist Relationship Specialty Start Date End Date Yann Manzanares MD [address] [place] [address] PCP - General 02/08/24 documented as of this encounter
--- OUTSIDE RECORDS SUMMARY | 2025-02-06 16:57 | XMS_ITS | Data Portability ---
Author Organization [facility], Main Office Address [address], [address] [place] [address] Care Team Providers Care [employer] Name Role Phone [facility] OTHER Assessment Encounter Date Assessment Date Assessment LastModified by Organization Details LastModified Time 12/17/2024 12/17/2024 Hosp Labs 12/13: Na 136-K 3.8-Bun 13-Cr 0.7-wbc 7.5-hgb 8.4-hct 28.5-plt 510 [email or web address] Not available 12/23/2024 14:46:10 12/25/2024 12/25/2024 Hosp Labs 12/13: Na 136-K 3.8-Bun 13-Cr 0.7-wbc 7.5-hgb 8.4-hct 28.5-plt 510 [email or web address] Not available 12/26/2024 07:11:06 Plan of Treatment [...] on chronic hypoxemi c respirat ory failure [id number] Completed 202412/20/2024 Not Available [facility] 09:41:58 Acute exacerba tion of chronic obstruct sophie pulmonar y disease 742921794 Completed 202312/20/2024 Not Available [facility] 5 09:42:00 Fracture of multiple ribs 0513155 Completed 202312/20/2024 Not Available [facility] 5 09:42:01 Acidosis 55053540 Completed 202312/20/2024 Not Available [facility] 5 09:42:02 Acute on chronic hypercap juan respirat ory failure 37485340960 06 Completed 202312/20/2024 Not Available [facility] 5 09:42:03 Acute exacerba tion of chronic obstruct sophie pulmonar y disease 923845970 Completed 202112/20/2024 Not Available [facility] 5 09:42:03 Congesti ve heart failure 75474784 Completed 202312/20/2024 Not Available [facility] 5 09:42:04 Acute on chronic hypoxemi c respirat ory failure 43664844004 546523 Completed 202312/20/2024 Not Available [facility] 5 09:42:06 Muscle weakness 38335711 Completed 202112/20/2024 Not Available [facility] 5 09:42:06 Chronic hypercap juan respirat ory failure 767595921 Completed 202312/20/2024 Not Available [facility] 5 09:42:43 Acute pulmonar y edema 03474224 Completed 202312/20/2024 Not Available [facility] 5 09:42:08 Difficul ty walking 428837145 Completed 202212/20/2024 Not Available [facility] 5 09:42:08 Pneumoni a 015027173 Completed 202312/20/2024 Not Available [facility] 5 09:42:09 Congesti ve heart failure 98098101 Completed 202312/20/2024 Not Available [facility] 5 09:42:10 Intersti tial lung disease 925646977 Completed 202112/20/2024 Not Available [facility] 5 09:42:11 Need for personal care assistan ce 57665102457 306546 Completed 202312/20/2024 Not Available [facility] 5 09:42:11 Fall Completed 202212/20/2024 Not Available [facility] 5 09:42:12 Orophary ngeal dysphagi a 11805544 Completed 202112/20/2024 Not Available [facility] 5 09:42:13 Metaboli c encephal opathy 97572680 Completed 202112/20/2024 Not Available [facility] 5 09:42:14 Dyspnea 352723940 Completed 202112/20/2024 Not Available [facility] 5 09:42:14 Anemia 687270113 Active 2024 Not Available [facility] 5 09:42:15 Epilepsy 79906183 Completed 202412/23/2024 BLAS GONZÁLES [address] [facility] [address], [place], [address] , [facility] [employer] 5 13:43:54 Muscle weakness 60471050 Completed 202312/20/2024 Not Available [facility] 5 09:42:16 Difficul ty walking 615030705 Completed 202312/20/2024 Not Available [facility] 5 09:42:17 Chronic cor pulmonal e 24925030 Completed 202312/20/2024 Not Available [facility] 5 09:42:17 Atopic dermatit is 80390461 Completed 202312/20/2024 Not Available [facility] 5 09:42:18 Acute exacerba tion of chronic obstruct sophie pulmonar y disease 685389019 Completed 202312/20/2024 Not Available [facility] 5 09:42:19 Congesti ve heart failure 86340833 Active 2023 Not Available [facility] 5 09:42:19 Paroxysm al atrial fibrilla tion 016277885 Active 2023 Not Available [facility] 5 09:42:20 Major depressi on, single episode 35604462 Completed 202312/20/2024 Not Available [facility] 5 09:42:45 Posttrau matic stress disorder 01874021 Active 2023 Not Available [facility] 5 09:42:20 Dependen ce on enabling machine or device 417348523 Completed 202312/23/2024 IVAP BLAS GONZÁLES [address] [facility] [address], [place], [address] , [employer] 5 13:43:54 Dependen ce on suppleme ntal oxygen 83247729804 7 Completed 202312/20/2024 Not Available [facility] 5 09:42:37 Pulmonar y emphysem a 55893344 Completed 202312/23/2024 BLAS GONZÁLES [address] [facility], [address], [place], [address] , [employer] [facility] 5 13:43:54 Anxiety disorder 164729084 Active 2023 Not Available [facility] 5 09:42:22 Inflamma tory dermatos is 782731985 Completed 202312/20/2024 eczema Not Available [facility] 09:42:23 Unsteady when standing 986569121 Completed 202312/20/2024 Not Available [facility] 09:42:24 Muscle weakness 42507357 Completed 202312/20/2024 Not Available [facility] 09:42:25 Dyspnea 490067412 Completed 202312/20/2024 Not Available [facility] 09:42:25 Difficul ty walking 482620686 Completed 202312/20/2024 Not Available [facility] 09:42:26 Somatic syndrome absent 694049363 Completed 202312/23/2024 JOLEEN BISHOP, COMMERCIAL ROOFING ESTIMATOR [address] [facility], [address], [place], [address] , [facility] [employer] 5 13:43:54 Fall Completed 202312/20/2024 Not Available [facility] 09:42:29 Acute on chronic hypoxemi c respirat ory failure 13946448100 601730 Completed 202312/20/2024 Not Available [facility] 09:42:29 Syncope and collapse 700702439 Completed 202312/20/2024 Not Available [facility] 09:42:30 Difficul ty walking 887805418 Completed 202312/20/2024 Not Available [facility] 09:42:31 Pleuriti c pain 2875982 Completed 202212/20/2024 Not Available [facility] 09:42:32 Localize d, primary osteoart hritis of the ankle and/or foot 603219570 Completed 202212/20/2024 Not Available [facility] 5 09:42:33 Pain in left foot 08053330788 9107 Completed 202212/20/2024 Not Available [facility] 09:42:34 Essentia l hyperten lisa 05720584 Completed 202212/23/2024 BLAS GONZÁLES [address] , [address], [place], [address] , [employer] [facility] 5 13:43:54 Osteopor osis 37693123 Completed 202212/20/2024 Not Available [facility] 5 09:42:52 Gastroes ophageal reflux disease without esophagi tis 662387316 Completed 202212/23/2024 BLAS GONZÁLES [address] , [address], [place], [address] , [employer] [facility] 5 13:43:54 Chronic hypoxemi c respirat ory failure 518952878 Completed 202212/20/2024 Not Available [facility] 5 09:42:36 Senile cataract 60326120 Completed 202212/23/2024 BLAS GONZÁLES [address] , [address], [place], [address] , [employer] [facility] 5 13:43:54 Chronic obstruct sophie pulmonar y disease 74003749 Completed 202212/20/2024 BLAS GONZÁLES [address] , [address], [place], [address] , [employer] [facility] 5 13:32:43 Disorder of body system 615870768 Completed 202212/20/2024 Not Available [facility] 5 09:42:39 Constipa tion 76963537 Completed 202112/20/2024 Not Available [facility] 5 09:42:40 Abnormal posture 36051902 Completed 202112/20/2024 Not Available [facility] 5 09:42:41 Abnormal posture 17422538 Completed 202112/20/2024 Not Available [facility] 5 09:42:42 Obesity 819959526 Completed 202012/20/2024 Not Available [facility] 5 09:42:44 Dyspnea 215900231 Completed 202012/20/2024 Not Available [facility] 5 09:42:45 Acute on chronic hypercap juan respirat ory failure 71155020817 06 Completed 202012/20/2024 Not Available [facility] 5 09:42:46 Late effect of accident al fall 209606863 Completed 202012/20/2024 Not Available [facility] 5 09:42:47 Unsteady when standing 585597916 Completed 202012/20/2024 Not Available [facility] 5 09:42:48 Syncope and collapse 030646393 Completed 202012/20/2024 Not Available [facility] 5 09:42:50 Acute exacerba tion of chronic obstruct sophie pulmonar y disease 419418655 Completed 202012/20/2024 Not Available [facility] 5 09:42:51 Muscle weakness 76778584 Completed 202012/20/2024 Not Available [facility] 5 09:42:53 Difficul ty walking 490215424 Completed 202012/20/2024 Not Available [facility] 5 09:42:55 Inflamma tory dermatos is 908962277 Completed 202012/20/2024 eczema Not Available [facility] 5 09:42:55 Bronchit is 75175608 Completed 202012/20/2024 Not Available [facility] 5 09:42:56 Chronic obstruct sophie pulmonar y disease 52571467 Active 2022 BLAS GONZÁLES [facility], [address], [place], [address] , [employer] 5 13:32:43 Seizure 92577350 Active 2024 BLAS GONZÁLES [address] [place] [address], [address], [place], [address] , [employer] [facility] 5 13:33:33 Lung mass 769879395 Active 2024 BLAS GONZÁLES [address] [place] [address], [address], [place], [address] , [employer] [facility] 5 14:00:34 Bipolar disorder 03685545 Active 2024 BLAS GONZÁLES [address] [place] [address], [address], [place], [address] , [employer] [facility] 5 14:04:18 Gastroes ophageal reflux disease 357670270 Active 2024 BLAS GONZÁLES [facility], [address], [place], [address] , [employer] [facility] 5 14:16:13 Chronic obstruct sophie pulmonar y disease 46604427 Completed 202312/20/2024 Not Available [facility] 5 10:29:12 Depressi ve disorder 92154495 Active BLAS Rollins [address] [place] [address], [address], [place], [address] , [employer] [facility] 5 10:21:22 Acute exacerba tion of chronic obstruct sophie pulmonar y disease 668520597 Completed 12/20/2024 Not Available [facility] 5 09:41:59 Gastroes ophageal reflux disease 902770556 Completed 12/23/2024 BLAS GONZÁLES [address] [facility], [address], [place], [address] , [place] [employer] [facility] 5 14:16:13 Bipolar disorder 36566038 Completed 12/20/2024 BLAS GONZÁLES [address] [facility], [address], [place], [address] , [facility] [employer] [facility] 5 14:04:18 Insomnia 411251356 Completed 12/20/2024 Not Available [facility] 09:42:54 Tachycar fiordaliza 9058268 Completed 12/23/2024 BLAS GONZÁLES [address] [facility], [address], [place], [address] , [facility] [employer] [facility] 5 13:43:54 Problem Notes None recorded. Medical Equipment None Reported. Allergies Allergen ID Allergen Name Allergen Category Reaction Reaction Severity Criticality Documentation Date Start Date Code Code System Note Provider Name and Address Organization Details Recorded Time 161 Haldol medicatio n Not available Not available Not available 09/01/2015 12466 9 RxNorm Not Available Not Available Not Available 162 codeine medicatio n Not available Not available Not available 09/01/20152021 2670 RxNorm Restl ess/R jai Not Available Not Available Not Available 163 Substance with sulfonami de structure and antibacte rial mechanism of action (substanc e) medicatio n Not available Not available Not available 09/01/2015 24289 8003 SNOMED Not Available Not Available Not Available 62163 haloperid ol medicatio n Not available Not available Not available 12/20/20242021 5093 RxNorm Palpa tions Not Available Not Available Not Available 55146 fluoxetin e medicatio n Not available Not [...] 103 mm[Hg] 52 mm[Hg] BLAS GONZÁLES [address] [facility], [address], [place], [address], [place] - [facility] [employer] 5 14:47:16 Social History Question Answer Notes LastModified by Organizat ion Details LastModified Time Tobacco Smoking Status Current Every Day Smoker Not Available [employer] 09/23/2020 03:13:02 How Many Years Have You Smoked Tobacco? 50 [id number] Information not available 09/23/2020 Sex: Unknown Functional [...] Code Diagnosis Note 363 Tiffany Pérez at [facility] on [address] [facility] [address] 09/01/2015 10:08:10 11/04/2015 03:49:10 Acute exacerbation of chronic obstructive pulmonary disease 786731335 J44.1 pt will continue her nebs treatments , Spiriva, prednisone taper, theodur, advair. continue on bipap, start PT/OT Gastroesop hageal reflux disease 292352692 K21.9 continue prilosec Bipolar disorder 1961547 4 F31.9 as pt requested we will increase abilify to 15 mg qd from 10 mg, continue lamictal as ordered which is not a change from [facility]. she can also see [facility] for this diagnosis. Insomnia 979750829 G47.0 0 pt has been on trazodone in the past, not now, will try remeron Tachycardia 5402216 R00. 0 pt was started on atenolol for elevated heart rate. is normal rate now. continue to monitor. [address] Main Office [address] [address], [address] [place] [address] 09/02/2015 17:39:53 10/09/2015 03:48:09 Acute exacerbation of chronic obstructive pulmonary disease 139804918 J44.1 acute on chronic, improving. Unclear why on all her inhalers while she is on oral prednisone and DuoNeb. We will hold all her inhalers until she has stopped her DuoNeb updrafts and her steroids have been tapered off. Tachycardia 6933839 R00. 0 responding to atenolol. Patient feels much improved Bipolar disorder 2782733 4 F31.9 no change her current medication s Chronic ob structive pulmonary disease 95176395 J44.9 chronic history, resume baseline meds once stable [id number] BLAS GONZÁLES [address] [place] [address] 12/17/2024 13:30:48 12/25/2024 16:13:18 Chronic obstructive pulmonary disease 67878192 J44.9 sob not r/t exacerbati onbaseline on supplement al O2 at 3 literscont on albuterol, breo neb tx, prednisone ,per discharge summary voriconazo le was mention in med list, unable to verify if she was started on this by pulmonolog y.f/u with pulmonolog ymonitor resp status.RT eval and tx prncont biPAP at hs Congestive heart failure 42692318 I50.9 cont on Lasix 40mg , kcl 10 megcont on metoprolol monitor weight, resp, edema Paroxysmal atrial fibrillation 871099705 I48.0 cont on eliquis , metoprolol monitor for unexplaine d bruising bleeding Seizure 15057242 R56.9 continue Lamictal 200 mg qd and 300 mg at nightmonit or for activityfo llow labs Anemia 719449238 D64.9 symptomati chgb 8.4GI consulted - recommende d to f/u with GI outpatient started on ferrous sulfate dailycont vit b, vit Dfollow labs Lung mass 019779950 R91. 8 11/02/24 ct scan showed small area of consolidat sophie hypodensit y in the left upper lobe slightly increased compared to 11/24/2023 .need to f/u to r/o malignancy . Depressive disorder 8888 9007 F32.A cont on Vilazodone 40 mgcontinue on mirtazapin ehx of suicidal ideat b ion, monitor moods and behavioral changes Bipolar disorder 4773773 4 F31.9 cont on abilify, theophylli ne Gastroesop hageal reflux disease 744954292 K21.9 cont on protonixmo nitor for GI upsetsx if bleeding Osteoporosis 61010043 M8 1.0 cont. on alendronat e, vit D, omega 3 , calcium Allergic rhinitis 981570 04 J30.9 cont fluticason e and mucinex Constipation 44715895 K5 9.00 cont on miralax, senna, lactulose Asthenia 00545062 R53.1 02 dependent, dyspnea with exertionPT /OT eval and treat [id number] FARHAD DAILEY, [facility] [place] [address] [place] [place] [address] 12/25/2024 12:54:10 12/27/2024 14:09:06 Anemia 836649597 D64.9 symptomati chgb 8.4GI consulted - recommende d to f/u with GI outpatient started on ferrous sulfate dailycont vit b, vit Dfollow labs outptf/up with pcp Chronic ob structive pulmonary disease 37202382 J44.9 sob not r/t exacerbati onbaseline on supplement al O2 at 3 literscont on albuterol, breo neb tx, prednisone ,per discharge summary voriconazo le was mention in med list, unable to verify if she was started on this by pulmonolog y.f/u with pulmonolog ycont biPAP at Congestive heart failure 40186089 I50.9 cont on Lasix 40mg , kcl 10 megcont on metoprolol monitor weight, resp, edema at homef/up with pcp Paroxysmal atrial fibrillation 721813527 I48.0 cont on eliquis , metoprolol monitor bleeding at homef/up with pcp Seizure 68879278 R56.9 continue Lamictal 200 mg qd and 300 mg at nightmonit or for activity at homef/up with pcp Lung mass 509091641 R91. 8 11/02/24 ct scan showed small area of consolidat sophie hypodensit y in the left upper lobe slightly increased compared to 11/24/2023 .need to f/u to r/o malignancy outptf/up with pcp Depressive disorder 3548 9007 F32.A cont on Vilazodone 40 mgcontinue on mirtazapin ef/up with pcp Bipolar disorder 5959466 4 F31.9 cont on abilify, theophylli mars/up with pcp Gastroesop hageal reflux disease 306219957 K21.9 cont on protonixmo nitor for GI upset outptf/up with pcp Osteoporosis 10623949 M8 1.0 cont. on alendronat e, vit D, omega 3 , calciumf/u p with pcp Allergic rhinitis 128631 04 J30.9 cont fluticason e and mucinexf/u p with pcp Constipation 71973671 K5 9.00 cont on miralax, senna, lactulosef /up with pcp Asthenia 50902038 R53.1 02 dependent, dyspnea with exertionco mpleted PT/OT eval and treatf/up with pcp Health Concerns Section Related Observation LastModified by Organization Detai ls LastModified Time None Recorded Concern Status LastModified by Organization Details LastModified Time None Recorded Advance Directives Directive None Recorded Payers Encounter Date Sequence Insurance Name Policy Number Policy Garcia Covered Member ID Garcia Member ID Guarantor Name 09/01/2015 1 [place] [employer] Lluvia Carleen Lahair [id number] Lluvia Lahair 09/02/2015 1 [place] Lluvia Carleen Lahair [id number] Lluvia Lahair 12/17/2024 1 [place] [facility] Lluvia A Lahair [id number] Lluvia Lahair 12/17/2024 2 [place] Lluvia Carleen Lahair [id number] Lluvia Lahair 12/25/2024 1 [place] [facility] Lluvia A Lahair [id number] Lluvia Lahair 12/25/2024 2 [place] Lluvia Carleen Lahair [id number] Lluvia Lahair Notes Date Note Type Note Provider Name and Address Organization Details Recorded Time 09/01/2015 text/html HPI [place] [facility] [place] exacerbation, acute on chronic resp failure, started on Bipap and atenolol for tachycardia? Mellisa Georges, COMMERCIAL ROOFING ESTIMATOR [address] [facility], [address], [place], [address], [facility] [employer] 09/01/2015 10:36:55 09/02/2015 text/html HPI 60-year-old female admitted for respiratory infection with negative chest x-ray, acute exacerbation of COPD, but he by hypoxemia and hypercapnia. She required ICU stay for administration of BiPAP. Chest x-ray did not show acute infiltrate. She was treated however with steroids, updraft and antibiotics. History of bipolar disorder as well is active smoker? Mohsen Dos Santos MD [address] [facility], [address], [place], [address], [employer] [facility] 09/02/2015 17:45:59 12/17/2024 text/html This is a 69-year-old female patient seen for Transition of care and re-admission. PMH of chronic hypoxic respiratory failure secondary to COPD, chronic CO2 retention, Afib, anxiety/depression, PTSD,obesity, osteoporosis, lung mass,PNA. She was sent to [facility] for evaluation of worsening shortness of breath; medical workup appeared to be at her baseline with the exception of anemia, baseline she usually around 10, labs showed hgb 8.4. GI was consulted and due to no concerns for a GI bleed, patient is recommended to follow up outpatient for EGD/colonoscopy. Per nursing she has been at her baseline since returning [place], there are no acute concerns. BLAS GONZÁLES [address] [facility], [address], [place], [address], [employer] 12/23/2024 16:38:36 12/25/2024 text/html This is a 69-year-old female patient seen for discharge summary. PMH of chronic hypoxic respiratory failure secondary to COPD, chronic CO2 retention, Afib, anxiety/depression, PTSD, obesity, osteoporosis, lung mass,PNA. She was sent to [facility] for evaluation of worsening shortness of breath; [...] plan on finding her a pcp in [place] where [place] live. Patient is stable for [place] home with meds and services. GÉNESIS FERNÁNDEZ [address] [facility], [address], [place], [address], [employer] 12/26/2024 07:14:05 OBGyn Episode No OBEpisode recorded.
--- OUTSIDE RECORDS SUMMARY | 2025-02-06 16:57 | XMS_ITS | Encounter Summary ---
Author Organization [facility] Address [address] [place] [address] Care Team Providers Care Account Administrator Name Role Phone Yann Manzanares MD Primary Care Provider [phone] Encounter Details Date Type Department Care Team (Late st Contact Info) Description 11/02/2024 Lab Requisition [facility] - Main Lab [address] [facility] [place] [address] Janice Núñez MD [address] [place] [address] Chronic obstructive pulmonary disease, unspecified (CMS/HCC) Social [...] MD LAB BLOOD ORDERABLES Final Resul t [facility] [address] [place] [address], * (ABNORMAL) Complete blood count (11/02/2024 6:47 AM EST) [facility] WBC 7.4 4.8 - 10.8 K/mcL LAB [...] LAB HEMETOLOGY METHOD 11/02/2024 10:51 AM EST [facility] NRBC Absolute 0.00 <0.10 K/[facility] LAB HEMETOLOGY METHOD 11/02/2024 10:51 AM EST [facility] Blood Venous blood specimen / Unknown Venipuncture / Unknown 11/02/2024 6:47 AM EST 11/02/2024 9:35 AM EST us Janice Núñez MD LAB BLOOD ORDERABLES Final Resul t [facility] [address] [place] [address], documented in this encounter Visit Diagnoses Diagnosis Chronic obstructive pulmonary disease, unspecified (CMS/HCC) documented in this encounter Care Teams Account Administrator Relationship Specialty Start Date End Date Yann Manzanares MD 175 [facility] [address] [place] [address] PCP - General 02/08/24 documented as of this encounter
--- OUTSIDE RECORDS SUMMARY | 2025-02-06 16:57 | XMS_ITS | Encounter Summary ---
Author Organization [facility] Address [address] [place] [address] Care Team Providers Care Position Description Manager Name Role Phone Yann Manzanares MD Primary Care Provider [phone] Encounter Details Date Type Department Care Team (Late st Contact Info) Description 10/27/2024 Lab Requisition [facility] - Main Lab 299 [facility] [place] [address] Janice Núñez MD [address] [place] [address] Chronic obstructive pulmonary disease, unspecified (CMS/HCC) Social [...] mmol/L LAB CHEMISTRY METHOD 10/29/2024 2:01 PM [facility] Potassium 3.6 3.5 - 5.5 mmol/L LAB CHEMISTRY METHOD 10/29/2024 2:01 PM [facility] Chloride 91(L) 96 - 110 mmol/L LAB CHEMISTRY METHOD 10/29/2024 2:01 PM [facility] CO2 40(H) 21 - 32 mmol/L LAB CHEMISTRY METHOD 10/29/2024 2:01 PM [facility] Anion Gap 7 3 - 11 LAB CHEMISTRY METHOD 10/29/2024 2:01 PM [facility] Glucose 86 70 - 100 mg/dL LAB CHEMISTRY METHOD 10/29/2024 2:01 PM [facility] BUN 15 5 - 25 mg/dL LAB CHEMISTRY METHOD 10/29/2024 2:01 PM [facility] Creatinine 0.89 0.50 - 1.10 mg/dL LAB CHEMISTRY METHOD 10/29/2024 2:01 PM [facility] eGFR 70 >=60 mL/min/1. 73m2 LAB CHEMISTRY METHOD 10/29/2024 2:01 PM [facility] Comment:Calculation based on the??Chronic Kidney Disease Epidemiology Collaboration (CKD-EPI) equation refit??without adjustment for race. BUN/Creatinine Ratio 16.9 LAB CHEMISTRY METHOD 10/29/2024 2:01 PM [facility] Calcium 9.3 8.5 - 10.5 mg/dL LAB CHEMISTRY METHOD 10/29/2024 2:01 PM [facility] Blood Venous blood specimen / Unknown Venipuncture / Unknown 10/29/2024 8:00 AM EST 10/29/2024 11:30 AM EST us Janice Núñez MD LAB BLOOD ORDERABLES Final Resul t [facility] [address] [place] [address], * (ABNORMAL) Complete blood count (10/29/2024 8:00 AM EST) [facility] WBC 6.3 4.8 - 10.8 K/mcL LAB HEMETOLOGY METHOD 10/29/2024 12:10 PM [facility] RBC 3.70(L) 3.80 - 4.80 M/mcL LAB HEMETOLOGY METHOD 10/29/2024 12:10 PM [facility] Hemoglobin 10.1(L) 11.5 - 16.0 g/dL LAB HEMETOLOGY METHOD 10/29/2024 12:10 PM [facility] Hematocrit 35.2 35.0 - 47.0 % LAB HEMETOLOGY METHOD 10/29/2024 12:10 PM [facility] MCV 94.1 79.0 - 98.0 FL LAB HEMETOLOGY METHOD 10/29/2024 12:10 PM [facility] MCH 27.0 27.0 - 32.0 pcg LAB HEMETOLOGY METHOD 10/29/2024 12:10 PM [facility] MCHC 28.7(L) 32.0 - 37.0 g/dL LAB HEMETOLOGY METHOD 10/29/2024 12:10 PM [facility] RDW 14.5 11.0 - 15.0 % LAB HEMETOLOGY METHOD 10/29/2024 12:10 PM [facility] Platelets 504(H) 130 - 400 K/mcL LAB HEMETOLOGY METHOD 10/29/2024 12:10 PM [facility] MPV 9.3 7.0 - 11.0 FL LAB HEMETOLOGY METHOD 10/29/2024 12:10 PM [facility] NRBC 0.0 <1.0 % LAB HEMETOLOGY METHOD 10/29/2024 12:10 PM EST [facility] NRBC Absolute 0.00 <0.10 K/mcL LAB HEMETOLOGY METHOD 10/29/2024 12:10 PM EST [facility] Blood Venous blood specimen / Unknown Venipuncture / Unknown 10/29/2024 8:00 AM EST 10/29/2024 11:30 AM EST us Janice Núñez MD LAB BLOOD ORDERABLES Final Resul t [facility] [address] [place] [address], documented in this encounter Visit Diagnoses Diagnosis Chronic obstructive pulmonary disease, unspecified (CMS/HCC) documented in this encounter Care Teams Position Description Manager Relationship Specialty Start Date End Date Yann Manzanares MD [address] [address] PCP - General 02/08/24 documented as of this encounter
--- OUTSIDE RECORDS SUMMARY | 2025-02-06 16:57 | XMS_ITS | Encounter Summary ---
Author Organization [facility] Address [address] [place] [address] Care Team Providers Care Finance Associate Name Role Phone Yann Manzanares MD Primary Care Provider [phone] Encounter Details Date Type Department Care Team (Late st Contact Info) Description 10/19/2024 Lab Requisition [facility] - Main Lab 299 [facility] [place] [address] Janice Núñez MD [address] [place] [address] Chronic obstructive pulmonary disease, unspecified (CMS/HCC) Social [...] mmol/L LAB CHEMISTRY METHOD 10/22/2024 4:26 PM [facility] Potassium 3.8 3.5 - 5.5 mmol/L LAB CHEMISTRY METHOD 10/22/2024 4:26 PM [facility] Chloride 94(L) 96 - 110 mmol/L LAB CHEMISTRY METHOD 10/22/2024 4:26 PM [facility] CO2 41(HH) 21 - 32 mmol/L LAB CHEMISTRY METHOD 10/22/2024 4:26 PM [facility] Anion Gap 3 3 - 11 LAB CHEMISTRY METHOD 10/22/2024 4:26 PM [facility] Glucose 82 70 - 100 mg/dL LAB CHEMISTRY METHOD 10/22/2024 4:26 PM [facility] BUN 12 5 - 25 mg/dL LAB CHEMISTRY METHOD 10/22/2024 4:26 PM [facility] Creatinine 0.94 0.50 - 1.10 mg/dL LAB CHEMISTRY METHOD 10/22/2024 4:26 PM [facility] eGFR 65 >=60 mL/min/1. 73m2 LAB CHEMISTRY METHOD 10/22/2024 4:26 PM [facility] Comment:Calculation based on the??Chronic Kidney Disease Epidemiology Collaboration (CKD-EPI) equation refit??without adjustment for race. BUN/Creatinine Ratio 12.8 LAB CHEMISTRY METHOD 10/22/2024 4:26 PM [facility] Calcium 9.2 8.5 - 10.5 mg/dL LAB CHEMISTRY METHOD 10/22/2024 4:26 PM [facility] Blood Venous blood specimen / Unknown Venipuncture / Unknown 10/22/2024 8:17 AM EST 10/22/2024 11:52 AM EST us Janice Núñez MD LAB BLOOD ORDERABLES Final Resul t [facility] [address] [place] [address], * (ABNORMAL) Complete blood count (10/22/2024 8:17 AM EST) [facility] WBC 5.5 4.8 - 10.8 K/mcL LAB HEMETOLOGY METHOD 10/22/2024 12:22 PM [facility] RBC 3.40(L) 3.80 - 4.80 M/mcL LAB HEMETOLOGY METHOD 10/22/2024 12:22 PM [facility] Hemoglobin 9.4(L) 11.5 - 16.0 g/dL LAB HEMETOLOGY METHOD 10/22/2024 12:22 PM [facility] Hematocrit 32.9(L) 35.0 - 47.0 % LAB HEMETOLOGY METHOD 10/22/2024 12:22 PM [facility] MCV 96.8 79.0 - 98.0 FL LAB HEMETOLOGY METHOD 10/22/2024 12:22 PM [facility] MCH 27.6 27.0 - 32.0 pcg LAB HEMETOLOGY METHOD 10/22/2024 12:22 PM [facility] MCHC 28.6(L) 32.0 - 37.0 g/dL LAB HEMETOLOGY METHOD 10/22/2024 12:22 PM [facility] RDW 15.0 11.0 - 15.0 % LAB HEMETOLOGY METHOD 10/22/2024 12:22 PM [facility] Platelets 417(H) 130 - 400 K/mcL LAB HEMETOLOGY METHOD 10/22/2024 12:22 PM [facility] MPV 9.8 7.0 - 11.0 FL LAB HEMETOLOGY METHOD 10/22/2024 12:22 PM [facility] NRBC 0.0 <1.0 % LAB HEMETOLOGY METHOD 10/22/2024 12:22 PM EST [facility] NRBC Absolute 0.00 <0.10 K/mcL LAB HEMETOLOGY METHOD 10/22/2024 12:22 PM EST [facility] LAB Blood Venous blood specimen / Unknown Venipuncture / Unknown 10/22/2024 8:17 AM EST 10/22/2024 11:52 AM EST us Janice Núñez MD LAB BLOOD ORDERABLES Final Resul t [facility] [address] [place] [address], documented in this encounter Visit Diagnoses Diagnosis Chronic obstructive pulmonary disease, unspecified (CMS/HCC) documented in this encounter Care Teams Finance Associate Relationship Specialty Start Date End Date Yann Manzanares MD 175 [facility] [address] [place] [address] PCP - General 02/08/24 documented as of this encounter
--- OUTSIDE RECORDS SUMMARY | 2025-02-06 16:57 | XMS_ITS | Encounter Summary ---
Author Organization [facility] Address [address] [place] [address] Care Team Providers Care Alternative Medicine Practitioner Name Role Phone Yann Manzanares MD Primary Care Provider [phone] Encounter Details Date Type Department Care Team (Late st Contact Info) Description 11/03/[address] [facility] - Main Lab 299 [facility] [place] [address] Janice Núñez MD [address] [place] [address] Chronic obstructive pulmonary disease, unspecified (CMS/HCC) Social [...] mmol/L LAB CHEMISTRY METHOD 11/05/2024 11:[address] [facility] Potassium 4.1 3.5 - 5.5 mmol/L LAB CHEMISTRY METHOD 11/05/2024 11:[address] [facility] Chloride 98 96 - 110 mmol/L LAB CHEMISTRY METHOD 11/05/2024 11:[address] [facility] CO2 43(HH) 21 - 32 mmol/L LAB CHEMISTRY METHOD 11/05/2024 11:[address] [facility] Anion Gap 0(L) 3 - 11 LAB CHEMISTRY METHOD 11/05/2024 11:[address] [facility] Glucose 95 70 - 100 mg/dL LAB CHEMISTRY METHOD 11/05/2024 11:[address] [facility] BUN 12 5 - 25 mg/dL LAB CHEMISTRY METHOD 11/05/2024 11:[address] [facility] Creatinine 0.97 0.50 - 1.10 mg/dL LAB CHEMISTRY METHOD 11/05/2024 11:[address] [facility] eGFR 63 >=60 mL/min/1. 73m2 LAB CHEMISTRY METHOD 11/05/2024 11:[address] [facility] Comment:Calculation based on the??Chronic Kidney Disease Epidemiology Collaboration (CKD-EPI) equation refit??without adjustment for race. BUN/Creatinine Ratio 12.4 LAB CHEMISTRY METHOD 11/05/2024 11:[address] [facility] Calcium 9.0 8.5 - 10.5 mg/dL LAB CHEMISTRY METHOD 11/05/2024 11:[address] [facility] Blood Venous blood specimen / Unknown Venipuncture / Unknown 11/05/2024 8:13 AM EST 11/05/2024 10:37 AM EST us Janice Núñez MD LAB BLOOD ORDERABLES Final Resul t [facility] [address] [place] [address], * (ABNORMAL) Complete blood count (11/05/2024 8:13 AM EST) [facility] WBC 5.7 4.8 - 10.8 K/mcL LAB HEMETOLOGY METHOD 11/05/2024 11:[address] [facility] RBC 3.70(L) 3.80 - 4.80 M/mcL LAB HEMETOLOGY METHOD 11/05/2024 11:[address] [facility] Hemoglobin 9.8(L) 11.5 - 16.0 g/dL LAB HEMETOLOGY METHOD 11/05/2024 11:[address] [facility] Hematocrit 34.3(L) 35.0 - 47.0 % LAB HEMETOLOGY METHOD 11/05/2024 11:[address] [facility] MCV 93.7 79.0 - 98.0 FL LAB HEMETOLOGY METHOD 11/05/2024 11:[address] [facility] MCH 26.8(L) 27.0 - 32.0 pcg LAB HEMETOLOGY METHOD 11/05/2024 11:[address] [facility] MCHC 28.6(L) 32.0 - 37.0 g/dL LAB HEMETOLOGY METHOD 11/05/2024 11:[address] [facility] RDW 14.5 11.0 - 15.0 % LAB HEMETOLOGY METHOD 11/05/2024 11:[address] [facility] Platelets 429(H) 130 - 400 K/mcL LAB HEMETOLOGY METHOD 11/05/2024 11:[address] [facility] MPV 9.5 7.0 - 11.0 FL LAB HEMETOLOGY METHOD 11/05/2024 11:[address] [facility] NRBC 0.0 <1.0 % LAB HEMETOLOGY METHOD 11/05/2024 11:00 AM EST [facility] NRBC Absolute 0.00 <0.10 K/mcL LAB HEMETOLOGY METHOD 11/05/2024 11:00 AM EST [facility] Blood Venous blood specimen / Unknown Venipuncture / Unknown 11/05/2024 8:13 AM EST 11/05/2024 10:37 AM EST us Janice Núñez MD LAB BLOOD ORDERABLES Final Resul t [facility] [address] [place] [address], documented in this encounter Visit Diagnoses Diagnosis Chronic obstructive pulmonary disease, unspecified (CMS/HCC) documented in this encounter Care Teams Alternative Medicine Practitioner Relationship Specialty Start Date End Date Yann Manzanares MD 175 [facility] [address] [place] [address] PCP - General 02/08/24 documented as of this encounter
--- OUTSIDE RECORDS SUMMARY | 2025-02-06 16:58 | XMS_ITS | Continuity of Care Document ---
Author Organization [place] [facility], [facility] Address [address] [place] [address] Care Team Providers Care Dispensing Audiologist Name Role Phone NEYDA BRADLEY Primary Care Provider [phone] Assessment Encounter Date Assessment Date Assessment LastModified [...] for this as well as list of [place] health providers and a copy of today's [...] Sensorine ural hearing loss of bilateral ears [id number] Active 2016 Sensorine ural hearing loss, bilateral ; Note: Date Diagnosed : 01/27/2017 10:56 AM (H90.3) Not Available [facility] 4 03:15:55 Bilateral diffuse otitis externa [id number] 63584 Active 2019 Diffuse otitis externa, bilateral ; Note: Date Diagnosed : 02/08/2020 12:16 PM (H60.313) Not Available [facility] 4 03:15:55 Dizziness and giddiness [id number] Active 2016 Dizziness and giddiness ; Note: Date Diagnosed : 01/27/2017 11:15 AM (R42) Not Available [facility] 4 03:15:55 Posterior rhinorrhe a [id number] Active 2019 Postnasal drip; Note: Date Diagnosed : 02/08/2020 12:53 PM (R09.82) Not Available [facility] 4 03:15:56 Problem Notes None recorded. Procedures Surgical History Date Name Laterality Status Provider Name and Address Organization Details Recorded Time 01/15/2025 Comp Audio with Tymps (79584 & 93863) completed DEL KOO, [address], [address], [facility] - [facility] 01/15/2025 11:26:17 Imaging Results None recorded. Procedure Notes None recorded. Medical Equipment None Reported. Allergies Allergen ID Allergen Name Allergen Category Reaction Reaction Severity Criticality Documentation Date Start Date Code Code System Note Provider Name and Address Organization Details Recorded Time 660231 haloperid ol lactate medicatio n other Not available Not available 04/10/2024 52515 3 RxNorm React ion: unkno wn, unspe cifie d;; Not Available [facility] 4 01:14:03 213594 codeine sulfate medicatio n other Not available Not available 04/10/2024 54755 RxNorm React ion: unkno wn, unspe cifie d;; Not Available [facility] 4 01:14:04 248128 Substance with sulfonami de structure and antibacte rial mechanism of action (substanc e) medicatio n other Not available Not available 04/10/2024 69791 8003 SNOMED React ion: unkno wn, unspe cifie d;; Not Available [facility] 4 01:14:05 Medications Name Sig Start [...] nebulizati on 2016 active Medicatio n ID: [id number] Br and Name: albuterol sulfate S end Method: E-Prescri bed Subs Allowed: subs OK Medica tionGener icName: albuterol sulfate Not Available Not Available Not Available Colace 100 mg capsule 2016 active Medicatio n ID: [id number] Br and Name: Colace Se nd Method: [...] release,12 hr 2016 active Medicatio n ID: [id number] Du ration Value: 30 Brand Name: theophyll [...] by mouth 2016 active Medicatio n ID: [id number] Du ration Value: 30 Brand Name: Claritin Send Method: E-Prescri bed Subs Allowed: subs OK Medica tionGener icName: Claritin Not Available Not Available Not Available Artificial Tears (dextran 70-hyprome llose) eye drops 2016 active Medicatio n ID: [id number] Br and Name: Artificia l Tears(dex [id number] ) Send Method: E-Prescri bed Subs Allowed: subs OK Medica tionGener icName: Artificia l Tears(dex [id number] ) Not Available Not Available Not Available [...] mg tablet 2016 active Medicatio n ID: [id number] Du ration Value: 30 Brand Name: atenolol [...] magnesium) tablet 2016 active Medicatio n ID: [id number] Du ration Value: 30 Brand Name: magnesium oxide Sen d Method: E-Prescri bed Subs Allowed: subs OK Specia l Instructi on: TK 1 T PO QD Medica tionGener icName: magnesium oxide Not Available Not Available Not Available lorazepam 0.5 mg tablet 2016 active Medicatio n ID: [id number] Du ration Value: 30 Brand Name: lorazepam Send Method: E-Prescri bed Subs Allowed: subs OK Specia l Instructi on: TK 1 T PO QHS PRF SLEEP Med icationGe nericName : lorazepam Not Available Not Available Not Available morphine 10 mg/mL intravenou s solution 2016 active Medicatio n ID: [id number] Br and Name: morphine Send Method: E-Prescri bed Subs Allowed: subs OK Medica tionGener icName: morphine Not Available Not Available Not Available pantoprazo le 40 mg tablet,del ayed release TAKE 1 TABLET BY MOUTH EVERY DAY IN THE MORNING active Not Available Not Available No t Available Advair Diskus 250 mcg-50 mcg/dose powder for inhalation 2016 active Medicatio n ID: [id number] Br and Name: Advair Diskus Se nd Method: E-Prescri bed Subs Allowed: subs OK Medica tionGener icName: Advair Diskus Not Available Not Available Not Available nicotine 21 mg/24 hr daily transderma l patch 2016 active Medicatio n ID: [id number] Du ration Value: 28 Brand Name: nicotine [...] mg tablet 2016 active Medicatio n ID: [id number] Du ration Value: 30 Brand Name: lamotrigi [...] sustained- release 2016 active Medicatio n ID: [id number] Du ration Value: 30 Brand Name: bupropion HCl Send Method: E-Prescri bed Subs Allowed: subs OK Specia l Instructi on: TK 1 T PO QAM Medic ationGene ricName: bupropion HCl Not Available Not Available Not Available aripiprazo le 15 mg tablet 2016 active Medicatio n ID: [id number] Du ration Value: 30 Brand Name: aripipraz [...] inhalation capsules 2016 active Medicatio n ID: [id number] Du ration Value: 30 Brand Name: Spiriva [...] mg tablet 2016 active Medicatio n ID: [id number] Du ration Value: 30 Brand Name: Viibryd [...] SNOMED-CT Code Diagnosis ICD10 Code Diagnosis Note [id number] KALEN MAC MD [facility] [address] [address] 01/15/2025 10:56:41 01/15/2025 11:53:57 Sensorineural hearing loss of bilateral ears [id number] H90.3 [id number] INDIGO JUDGE [facility] [address] [address] 01/15/2025 11:23:44 01/16/2025 07:43:57 Sensorineural hearing loss of bilateral ears [id number] H90.3 Audiologic al evaluation results: 01/15/2025 Right [...] ID Guarantor Name 01/15/2025 1 MEDICARE B-[place]: [employer] Lluvia Cartagena [id number] Lluvia Cartagena 01/15/2025 2 [place] [facility] Lluvia Cartagena [id number] Lluvia Cartagena Notes Date Note Type Note Provider Name and Address Organization Details Recorded Time 01/15/2025 text/html HT medical clearance, known asymmetrical SNHL >>AD DEL KOO, [facility] [address] [place] [address], [id number], [place] [facility] 01/15/2025 11:27:24 01/15/2025 text/html 69 year old florencia mesa presents to the office for hearing evaluation. She currently lives at home with her daughter but had been living in nursing homes and group homes over the past few years. She also presents here today with her HEATING REPAIR TECHNICIAN. She has been using an over the counter hearing aid in the right ear with poor result. She has known profound hearing loss on the left from a left sudden hearing loss in the past. KALEN MAC MD [address], [address], [facility] 01/15/2025 20:55:02 OBGyn Episode No OBEpisode recorded.
--- OUTSIDE RECORDS SUMMARY | 2025-02-06 16:58 | XMS_ITS | Continuity of Care Document ---
Author Organization [place] - [facility], [facility] Address [address] [place] [id number] Care Team Providers Care Soft Work Cigar Machine Operator Name Role Phone NEYDA BRADLEY Primary Care Provider Assessment Encounter Date Assessment Date Assessment LastModified by Organization Details LastModified Time 01/15/2025 01/15/2025 Potential BiCros candidate - refer to provider [email or web address] Not available 01/15/2025 11:26:15 Plan of Treatment [...] Sensorine ural hearing loss of bilateral ears [id number] Active 2016 Sensorine ural hearing loss, bilateral ; Note: Date Diagnosed : 01/27/2017 10:56 AM (H90.3) Not Available [facility] 4 03:15:55 Bilateral diffuse otitis externa [id number] 12404 Active 2019 Diffuse otitis externa, bilateral ; Note: Date Diagnosed : 02/08/2020 12:16 PM (H60.313) Not Available [facility] 4 03:15:55 Dizziness and giddiness [id number] Active 2016 Dizziness and giddiness ; Note: Date Diagnosed : 01/27/2017 11:15 AM (R42) Not Available [facility] 4 03:15:55 Posterior rhinorrhe a [id number] Active 2019 Postnasal drip; Note: Date Diagnosed : 02/08/2020 12:53 PM (R09.82) Not Available [facility] 4 03:15:56 Problem Notes None recorded. Procedures Surgical History Date Name Laterality Status Provider Name and Address Organization Details Recorded Time 01/15/2025 Comp Audio with Tymps (35868 & 69675) completed DEL KOO, [address],[place] [address], [place], [address], [facility] 01/15/2025 11:26:17 Imaging Results None recorded. Procedure Notes None recorded. Medical Equipment None Reported. Allergies Allergen ID Allergen Name Allergen Category Reaction Reaction Severity Criticality Documentation Date Start Date Code Code System Note Provider Name and Address Organization Details Recorded Time 360765 haloperid ol lactate medicatio n other Not available Not available 04/10/2024 50430 3 RxNorm React ion: unkno wn, unspe cifie d;; Not Available [facility] 4 01:14:03 714105 codeine sulfate medicatio n other Not available Not available 04/10/2024 71212 RxNorm React ion: unkno wn, unspe cifie d;; Not Available [facility] 4 01:14:04 617625 Substance with sulfonami de structure and antibacte rial mechanism of action (substanc e) medicatio n other Not available Not available 04/10/2024 41055 8003 SNOMED React ion: unkno wn, unspe cifie d;; Not Available [facility] 4 01:14:05 Medications Name Sig Start [...] nebulizati on 2016 active Medicatio n ID: [id number] Br and Name: albuterol sulfate S end Method: E-Prescri bed Subs Allowed: subs OK Medica tionGener icName: albuterol sulfate Not Available Not Available Not Available Colace 100 mg capsule 2016 active Medicatio n ID: [id number] Br and Name: Colace Se nd Method: [...] release,12 hr 2016 active Medicatio n ID: [id number] Du ration Value: 30 Brand Name: theophyll [...] by mouth 2016 active Medicatio n ID: [id number] Du ration Value: 30 Brand Name: Claritin Send Method: E-Prescri bed Subs Allowed: subs OK Medica tionGener icName: Claritin Not Available Not Available Not Available Artificial Tears (dextran 70-hyprome llose) eye drops 2016 active Medicatio n ID: [id number] Br and Name: Artificia l Tears(dex [id number] ) Send Method: E-Prescri bed Subs Allowed: subs OK Medica tionGener icName: Artificia l Tears(dex [id number] ) Not Available Not Available Not Available [...] mg tablet 2016 active Medicatio n ID: [id number] Du ration Value: 30 Brand Name: atenolol [...] magnesium) tablet 2016 active Medicatio n ID: [id number] Du ration Value: 30 Brand Name: magnesium oxide Sen d Method: E-Prescri bed Subs Allowed: subs OK Specia l Instructi on: TK 1 T PO QD Medica tionGener icName: magnesium oxide Not Available Not Available Not Available lorazepam 0.5 mg tablet 2016 active Medicatio n ID: [id number] Du ration Value: 30 Brand Name: lorazepam Send Method: E-Prescri bed Subs Allowed: subs OK Specia l Instructi on: TK 1 T PO QHS PRF SLEEP Med icationGe nericName : lorazepam Not Available Not Available Not Available morphine 10 mg/mL intravenou s solution 2016 active Medicatio n ID: [id number] Br and Name: morphine Send Method: E-Prescri bed Subs Allowed: subs OK Medica tionGener icName: morphine Not Available Not Available Not Available pantoprazo le 40 mg tablet,del ayed release TAKE 1 TABLET BY MOUTH EVERY DAY IN THE MORNING active Not Available Not Available No t Available Advair Diskus 250 mcg-50 mcg/dose powder for inhalation 2016 active Medicatio n ID: [id number] Br and Name: Advair Diskus Se nd Method: E-Prescri bed Subs Allowed: subs OK Medica tionGener icName: Advair Diskus Not Available Not Available Not Available nicotine 21 mg/24 hr daily transderma l patch 2016 active Medicatio n ID: [id number] Du ration Value: 28 Brand Name: nicotine [...] mg tablet 2016 active Medicatio n ID: [id number] Du ration Value: 30 Brand Name: lamotrigi [...] sustained- release 2016 active Medicatio n ID: [id number] Du ration Value: 30 Brand Name: bupropion HCl Send Method: E-Prescri bed Subs Allowed: subs OK Specia l Instructi on: TK 1 T PO QAM Medic ationGene ricName: bupropion HCl Not Available Not Available Not Available aripiprazo le 15 mg tablet 2016 active Medicatio n ID: [id number] Du ration Value: 30 Brand Name: aripipraz [...] inhalation capsules 2016 active Medicatio n ID: [id number] Du ration Value: 30 Brand Name: Spiriva [...] mg tablet 2016 active Medicatio n ID: [id number] Du ration Value: 30 Brand Name: Viibryd [...] SNOMED-CT Code Diagnosis ICD10 Code Diagnosis Note [id number] KALEN MAC MD [facility] [address] [address] 01/15/2025 10:56:41 01/15/2025 11:53:57 Sensorineural hearing loss of bilateral ears [id number] H90.3 [id number] INDIGO JUDGE [facility] [address] [address] 01/15/2025 11:23:44 01/16/2025 07:43:57 Sensorineural hearing loss of bilateral ears [id number] H90.3 Audiologic al evaluation results: 01/15/2025 Right [...] ID Guarantor Name 01/15/2025 1 [place]IC[place] B-[place]: [employer] Lluvia Joleen Mitzi [id number] Lluvia Cartagena 01/15/2025 2 [place] [facility] Lluvia Cartagena [id number] Lluvia Cartagena Notes Date Note Type Note Provider Name and Address Organization Details Recorded Time 01/15/2025 text/html HT medical clearance, known asymmetrical SNHL >>AD DEL KOO, INDIGO [facility],[address], [address], [place] - [facility] 01/15/2025 11:27:24 01/15/2025 text/html 69 year old florencia mesa presents to the office for hearing evaluation. She currently lives at home with her daughter but had been living in nursing homes and group homes over the past few years. She also presents here today with her SENIOR MAINTENANCE TECHNICIAN. She has been using an over the counter hearing aid in the right ear with poor result. She has known profound hearing loss on the left from a left sudden hearing loss in the past. KALEN MAC MD [address] [facility],[address], [address], [facility] 01/15/2025 20:55:02 OBGyn Episode No OBEpisode recorded.
--- OUTSIDE RECORDS SUMMARY | 2025-02-06 16:58 | XMS_ITS | Encounter Summary ---
Author Organization [facility] Address [address] [place] [address] Care Team Providers Care Child Day Care Center Worker Name Role Phone Yann Manzanares MD Primary Care Provider [phone] Encounter Details Date Type Department Care Team (Late st Contact Info) Description 11/09/2024 Lab Requisition [facility] - Main Lab [address] [facility] [place] [address] Janice Núñez MD [address] [place] [address] Chronic obstructive pulmonary disease, unspecified (CMS/HCC) Social [...] mmol/L LAB CHEMISTRY METHOD 11/12/2024 4:30 PM [facility] Potassium 4.1 3.5 - 5.5 mmol/L LAB CHEMISTRY METHOD 11/12/2024 4:30 PM [facility] Chloride 92(L) 96 - 110 mmol/L LAB CHEMISTRY METHOD 11/12/2024 4:30 PM [facility] CO2 43(HH) 21 - 32 mmol/L LAB CHEMISTRY METHOD 11/12/2024 4:30 PM [facility] Anion Gap 6 3 - 11 LAB CHEMISTRY METHOD 11/12/2024 4:30 PM [facility] Glucose 90 70 - 100 mg/dL LAB CHEMISTRY METHOD 11/12/2024 4:30 PM [facility] BUN 11 5 - 25 mg/dL LAB CHEMISTRY METHOD 11/12/2024 4:30 PM [facility] Creatinine 0.98 0.50 - 1.10 mg/dL LAB CHEMISTRY METHOD 11/12/2024 4:30 PM [facility] eGFR 62 >=60 mL/min/1. 73m2 LAB CHEMISTRY METHOD 11/12/2024 4:30 PM [facility] Comment:Calculation based on the??Chronic Kidney Disease Epidemiology Collaboration (CKD-EPI) equation refit??without adjustment for race. BUN/Creatinine Ratio 11.2 LAB CHEMISTRY METHOD 11/12/2024 4:30 PM [facility] Calcium 9.3 8.5 - 10.5 mg/dL LAB CHEMISTRY METHOD 11/12/2024 4:30 PM [facility] Blood Venous blood specimen / Unknown Venipuncture / Unknown 11/12/2024 8:41 AM EST 11/12/2024 11:35 AM EST us Janice Núñez MD LAB BLOOD ORDERABLES Final Resul t [facility] [address] [place] [address], * (ABNORMAL) Complete blood count (11/12/2024 8:41 AM EST) [facility] WBC 6.1 4.8 - 10.8 K/mcL LAB HEMETOLOGY METHOD 11/12/2024 11:55 AM [facility] RBC 3.50(L) 3.80 - 4.80 M/mcL LAB HEMETOLOGY METHOD 11/12/2024 11:55 AM [facility] Hemoglobin 9.2(L) 11.5 - 16.0 g/dL LAB HEMETOLOGY METHOD 11/12/2024 11:55 AM [facility] Hematocrit 32.4(L) 35.0 - 47.0 % LAB HEMETOLOGY METHOD 11/12/2024 11:55 AM [facility] MCV 93.9 79.0 - 98.0 FL LAB HEMETOLOGY METHOD 11/12/2024 11:55 AM [facility] MCH 26.7(L) 27.0 - 32.0 pcg LAB HEMETOLOGY METHOD 11/12/2024 11:55 AM [facility] MCHC 28.4(L) 32.0 - 37.0 g/dL LAB HEMETOLOGY METHOD 11/12/2024 11:55 AM [facility] RDW 14.4 11.0 - 15.0 % LAB HEMETOLOGY METHOD 11/12/2024 11:55 AM [facility] Platelets 435(H) 130 - 400 K/mcL LAB HEMETOLOGY METHOD 11/12/2024 11:55 AM [facility] MPV 9.7 7.0 - 11.0 FL LAB HEMETOLOGY METHOD 11/12/2024 11:55 AM [facility] NRBC [...] [facility] [address] [place] [address], documented in this encounter Visit Diagnoses Diagnosis Chronic obstructive pulmonary disease, unspecified (CMS/HCC) documented in this encounter Care Teams Child Day Care Center Worker Relationship Specialty Start Date End Date Yann Manzanares MD [address] [facility] [address] [place] [address] PCP - General 02/08/24 documented as of this encounter
--- OUTSIDE RECORDS SUMMARY | 2025-02-06 16:58 | XMS_ITS | Clinical Summary ---
Author Organization [facility] Address [address] [place] [address] Care Team Providers Care Swing Grinder Name Role Phone Debra Ji MD Primary Care Provider [phone] Allergies Active Allergy Reactions Criticality Noted Date [...] 0 Active zoster vaccine live, PF, (ZOSTAVAX) 94449 UNT/0.65ML injection Inject 0.65 mL under the [...] age to complete this topic Care Teams Swing Grinder Relationship Specialty Start Date End Date Debra Ji MD PCP - General Internal Medicine 06/27/17
--- OUTSIDE RECORDS SUMMARY | 2025-02-06 16:58 | XMS_ITS | Encounter Summary ---
Author Organization [facility] Address [address] [place] [address] Care Team Providers Care Child And Family Therapist Name Role Phone Yann Manzanares MD Primary Care Provider [phone] Encounter Details Date Type Department Care Team (Late st Contact Info) Description 11/20/2024 Lab Requisition [facility] - Main Lab [address] [facility] [place] [address] Janice Núñez MD [address] [place] [address] Chronic obstructive pulmonary disease, unspecified (CMS/HCC) Social [...] mmol/L LAB CHEMISTRY METHOD 11/20/2024 10:56 AM [facility] Potassium 4.3 3.5 - 5.5 mmol/L LAB CHEMISTRY METHOD 11/20/2024 10:56 AM [facility] Chloride 87(L) 96 - 110 mmol/L LAB CHEMISTRY METHOD 11/20/2024 10:56 AM [facility] CO2 44(HH) 21 - 32 mmol/L LAB CHEMISTRY METHOD 11/20/2024 10:56 AM [facility] Anion Gap 3 3 - 11 LAB CHEMISTRY METHOD 11/20/2024 10:56 AM [facility] Glucose 83 70 - 100 mg/dL LAB CHEMISTRY METHOD 11/20/2024 10:56 AM [facility] BUN 17 5 - 25 mg/dL LAB CHEMISTRY METHOD 11/20/2024 10:56 AM [facility] Creatinine 0.95 0.50 - 1.10 mg/dL LAB CHEMISTRY METHOD 11/20/2024 10:56 AM [facility] eGFR 65 >=60 mL/min/1. 73m2 LAB CHEMISTRY METHOD 11/20/2024 10:56 AM [facility] Comment:Calculation based on the??Chronic Kidney Disease Epidemiology Collaboration (CKD-EPI) equation refit??without adjustment for race. BUN/Creatinine Ratio 17.9 LAB CHEMISTRY METHOD 11/20/2024 10:56 AM [facility] Calcium 9.2 8.5 - 10.5 mg/dL LAB CHEMISTRY METHOD 11/20/2024 10:56 AM [facility] Blood Venous blood specimen / Unknown Venipuncture / Unknown 11/20/2024 6:24 AM EST 11/20/2024 9:31 AM EST us Janice Núñez MD LAB BLOOD ORDERABLES Final Resul t [facility] [address] [place] [address], * (ABNORMAL) Complete blood count (11/20/2024 6:24 AM EST) [facility] WBC 8.4 4.8 - 10.8 K/mcL LAB HEMETOLOGY METHOD 11/20/2024 10:10 AM [facility] RBC 3.70(L) 3.80 - 4.80 M/mcL LAB HEMETOLOGY METHOD 11/20/2024 10:10 AM [facility] Hemoglobin 9.5(L) 11.5 - 16.0 g/dL LAB HEMETOLOGY METHOD 11/20/2024 10:10 AM [facility] Hematocrit 34.1(L) 35.0 - 47.0 % LAB HEMETOLOGY METHOD 11/20/2024 10:10 AM [facility] MCV 93.4 79.0 - 98.0 FL LAB HEMETOLOGY METHOD 11/20/2024 10:10 AM [facility] MCH 26.0(L) 27.0 - 32.0 pcg LAB HEMETOLOGY METHOD 11/20/2024 10:10 AM [facility] MCHC 27.9(L) 32.0 - 37.0 g/dL LAB HEMETOLOGY METHOD 11/20/2024 10:10 AM [facility] RDW 14.9 11.0 - 15.0 % LAB HEMETOLOGY METHOD 11/20/2024 10:10 AM [facility] Platelets 512(H) 130 - 400 K/mcL LAB HEMETOLOGY METHOD 11/20/2024 10:10 AM [facility] MPV 9.8 7.0 - 11.0 FL LAB HEMETOLOGY METHOD 11/20/2024 10:10 AM [facility] NRBC 0.0 <1.0 % LAB HEMETOLOGY METHOD 11/20/2024 10:10 AM EST [facility] NRBC Absolute 0.00 <0.10 K/mcL LAB HEMETOLOGY METHOD 11/20/2024 10:10 AM EST [facility] Blood Venous blood specimen / Unknown Venipuncture / Unknown 11/20/2024 6:24 AM EST 11/20/2024 9:31 AM EST us Janice Núñez MD LAB BLOOD ORDERABLES Final Resul t [facility] [address] [place] [address], documented in this encounter Visit Diagnoses Diagnosis Chronic obstructive pulmonary disease, unspecified (CMS/HCC) documented in this encounter Care Teams Child And Family Therapist Relationship Specialty Start Date End Date Yann Manzanares MD [address] [facility] [address] [place] [address] PCP - General 02/08/24 documented as of this encounter
--- OUTSIDE RECORDS SUMMARY | 2025-02-06 16:58 | XMS_ITS | Clinical Summary ---
Author Organization [address] [place] [address] Address [address] [place] [address] Phone Care Team Providers Care Validation Leader Name Role Phone Yann Manzanares MD Primary Care Provider Allergies Active Allergy Reactions Criticality Noted Date [...] on CPAP 11/08/2017 Overview (09/12/2024): Life supply/cpap [facility] [place] Polysomnogram Trilogy treatment study. Date 09/06/2019. Wt [...] Team Description 12/13/2024 Telephone Internal Medicine - [place] [address] [facility] [address] [place] [address] Isamar Garcia MA Request For Order(s) ([facility] Cert 09/21/24-11/19/24 Plan Of Care ) 12/13/2024 Telephone Internal Medicine [facility] 175 [facility] [address] [place] [address] Isamar Garcia MA Request For Order(s) ([facility] Order # [id number]) 12/11/[address] [facility] - Main Lab [address] [place] [phone] Glenroy Goff MD Chronic obstructive pulmonary disease, unspecified ([facility]/HCC) 12/05/2024 Telephone Lung Screening Program - [place] 299 [facility] [address] [place] [phone] Joelle Mccain MA 11/29/2024 Telephone Internal Medicine - [place] 175 [facility] [address] [place] [phone] Yann Manzanares MD 11/20/[address] [facility] - Main Lab [address] [place] [phone] Janice Núñez MD Chronic obstructive pulmonary disease, unspecified ([facility]) 11/09/2024 Lab Requisition [facility] Lab [address] [place] [phone] Janice Núñez MD Chronic obstructive pulmonary disease, unspecified ([facility]) 11/08/2024 Telephone Lung Screening Program - [place] 299 [facility] [address] [place] [phone] Joelle Mccain MA Appointment ([facility]) from Last 3 Months Immunizations Name Administration [...] Comments Depression 10/09/2017 DX:Depression Bipolar I disorder ([facility]/HCC) 06/10/2017 DX: Bipolar I disorder (HCC) Chronic obstructive pulmonar y disease (CMS/HCC) 07/29/2017 DX:Chronic obstructive pulmo nary disease (HCC) Chronic respiratory failure with hypercapnia ([facility]) 08/02/2017 DX:Chronic respiratory failu re with hypercapnia (HCC) Dependence on supplemental oxygen 06/15/2017 DX:Dependence on [...] 2) 06/19/2024 04/24/2024 COVID-19 Vaccine (2 - 2023- season) 2024 04/24/2024 Influenza Vaccine (#1) 2024 [...] COLONOSCOPY Routine 04/27/2024 DEPRESSION SCREENING Routine 04/16/2024 [facility] SCREENING DIGITAL Routine 03/22/2024 8:50 AM EDT Encounter for screening mammogram for malignant neoplasm of breast [facility] DEXA AXIAL SKELETON Routine 03/22/2024 8:14 AM EDT Encounter for screening for osteoporosis HEPATITIS C SCREENING Routine 02/09/2024 FALLS RISK ASSESSMENT Routine 02/09/2024 LIPID PANEL Routine 02/09/2024 from Last 3 Months or Most Recently Relevant to Health Maintenance Results * (ABNORMAL) Complete blood count (12/11/2024 6:30 AM EST) Only the most recent of3 resultswithin the time period is included. WBC 7.2 4.8 - 10.8 K/mcL LAB HEMETOLOGY METHOD 12/11/2024 11:11 AM EST [facility] ([facility] LAB RBC 3.00(L) 3.80 - 4.80 M/[facility] LAB HEMETOLOGY METHOD 12/11/2024 11:11 AM [facility] [...] AM [facility] LAB NRBC Absolute 0.00 <0.10 K/mcL LAB HEMETOLOGY METHOD 12/11/2024 11:11 AM [facility] LAB Blood Venous blood specimen / Unknown Venipuncture / Unknown 12/11/2024 6:30 AM EST 12/11/2024 9:22 AM EST us Glenroy Goff MD LAB BLOOD ORDERABLES Final Resul t [facility] LAB [address] [place] [address], * (ABNORMAL) Basic metabolic panel (12/11/2024 6:30 AM EST) Only the most recent of3 resultswithin the time period is included. Sodium [...] LAB CHEMISTRY METHOD 12/11/2024 11:11 AM EST [facility] LAB Blood Venous blood specimen / Unknown Venipuncture / Unknown 12/11/2024 6:30 AM EST 12/11/2024 9:22 AM EST Glenroy Goff MD LAB BLOOD ORDERABLES Final Resul t [facility] ([facility]) [facility] LAB [address] [place] [address], * Colonoscopy (04/27/2024) Colonoscopy No Interpretation , Abstracted Anatomical Region Laterality Modality Other Historical Provider HEALTH MAINTENANCE Final Result * Depression Screening (04/16/2024) Depression Screening Abstracted Historical Provider HEALTH MAINTENANCE Final Result * LUIS ARMANDO SCREENING DIGITAL (03/22/2024 8:50 AM EDT) Anatomical Region Laterality Modality Mammography 03/21/2024 3:07 PM EDT Narrative 03/22/2024 8:50 AM EDT [facility] Diagnostic Imaging Department [address] [place] [id number] Patient: ??DENISA CARTAGENA ?/Age/Sex: 1955 - - Unit#: ??[id number] ? Location/Status: ??SPDIMAM/REG CLI ? Mnemonic/Ordering Site: ??DIGSC/SPMAM Ordering Physician: ??YANN MANZANARES [facility] Screening Digital - 03/21/24 - Report Status:Signed EXAM: [facility] Screening Digital EXAM DATE AND TIME: 03/21/2024 3:49 PM HISTORY: ??Screening. Left breast biopsy in 2016, pathology benign. COMPARISON: ??02/16/23, 09/21/19, 09/18/18, 09/15/17 TECHNIQUE: Bilateral digital breast tomosynthesis was performed in the CC and MLO projections. Computer aided detection with [employer] 3D 3.1 was employed. TISSUE DENSITY: b. [...] Procedure Note Erica Treadwell MD - 07/16/2024 [facility] Diagnostic Imaging Department [address] [place] [phone] Patient: DENISA CARTAGENA /Age/Sex: 1955 - 68 - F Unit#: [id number] Location/Status: SPDIMAM/REG CLI Mnemonic/Ordering Site: [facility] Ordering Physician: YANN MANZANARES [facility] Screening Digital - 03/21/24 - Report Status:Signed EXAM: [facility] Screening Digital EXAM DATE AND TIME: 03/21/2024 3:49 PM HISTORY: Screening. Left breast biopsy in 2016, pathology benign. COMPARISON: 02/16/23, 09/21/19, 09/18/18, 09/15/17 TECHNIQUE: Bilateral digital breast tomosynthesis was performed in the CCand MLO projections. Computer aided detection with [employer] 3D 3.1was employed. TISSUE DENSITY: b. There [...] Date/Time: 03/22/24 0849 Sign date/Time: 03/22/24 0850 Yann Manzanares MD IMG BI PROCEDURES Final Result * [facility] DEXA AXIAL SKELETON (03/22/2024 8:14 AM EDT) Anatomical Region Laterality Modality Mammography 03/21/2024 3:07 PM EDT Narrative 03/22/2024 8:14 AM EDT [facility] Diagnostic Imaging Department [address] [place] [address] Patient: ??DENISA CARTAGENA ?/Age/Sex: 1955 - 68 - F Unit#: ??[id number] ? Location/Status: ??SPDIMAM/REG CLI ? Mnemonic/Ordering Site: ??MAMDEXAAX/SPMAM Ordering Physician: ??YANN MANZANARES [facility] Dexa Axial Skeleton - 03/21/24 - 1602 [...] probability of hip fracture of 7.1%. Code 70063 Dictating Physician: ??MILTON MENDEZ MD Electronically Signed by: ??MILTON MENDEZ MD Dic Date/Time: ??03/22/24 08 Sign date/Time: ??03/22/24 0814 Procedure Note Milton Mendez MD - 07/16/2024 [facility] Diagnostic Imaging Department [address] [place] [address] Patient: DAXDENISA D.O.B./Age/Sex: 1955 68 - F Unit#: [id number] Location/Status: SPDIMAM/REG CLI Mnemonic/[facility]ing [facility] Ordering Physician: YANN MANZANARES Luis Armando Dexa Axial Skeleton - [...] density of the femurs bilaterally is 0.912 gm/[id number] is 90% of that of young normals [...] probability of hip fracture of 7.1%. Code 48318 Dictating Physician: MILTON MENDEZ MD Electronically Signed by: MILTON MENDEZ MD Dic Date/Time: 03/22/24812 Sign date/Time: 03/22/24813 Yann Manzanares MD IM BI PROCEDURES Final Result * Falls Risk Assessment (02/09/2024) Falls Risk Assessment Abstracted Historical Provider HEALTH MAINTENANCE Final Result * Hepatitis C Screening (02/09/2024) Hepatitis C Screening Abstracted Historical Provider HEALTH MAINTENANCE Final Result * (ABNORMAL) Lipid panel (02/09/2024) LDL/HDL Ratio 2 0 - 4 Triglycerides 80 0 - 150 mg/dL Cholesterol 237(A) 0 - 200 mg/dL HDL 103 >=40 mg/dL LDL Cholesterol 118(A) 0 - 100 mg/dL Blood Venous blood specimen / Unknown Historical Provider LAB BLOOD ORDERABLES Iris l Result from Last 3 Months or Most Recently Relevant to Health Maintenance Insurance MEDICARE [place] - [place] Advance Directives Documents on File Type Date Recorded Patient Carbide Grinder Expl anation Health Care Decision (hx) 04/27/2024 [...] Health Care Decision (hx) 12/23/2015 [facility] Care Teams Validation Leader Relationship Specialty Start Date End Date Yann Manzanares MD [address] [place] [address] PCP - General 02/08/24
--- OUTSIDE RECORDS SUMMARY | 2025-02-06 16:58 | XMS_ITS | Encounter Summary ---
Author Organization [facility] Address [address] [place] [address] Care Team Providers Care City Superintendent Name Role Phone Yann Manzanares MD Primary Care Provider Encounter Details Date Type Department Care Team (Late st Contact Info) Description 12/11/2024 Lab Requisition [facility] - Main Lab [address] [facility] [place] [address] Glenroy Goff MD [address] [place] [address] [address] [place], [phone] Chronic obstructive pulmonary disease, unspecified (CMS/HCC) [...] mmol/L LAB CHEMISTRY METHOD 12/11/2024 11:11 AM [facility] LAB Potassium 4.1 3.5 - 5.5 mmol/L LAB CHEMISTRY METHOD 12/11/2024 11:11 AM [facility] LAB Chloride 84(L) 96 - 110 mmol/L LAB CHEMISTRY METHOD 12/11/2024 11:11 AM [facility] LAB CO2 43(HH) 21 - 32 mmol/L LAB CHEMISTRY METHOD 12/11/2024 11:11 AM [facility] LAB Anion Gap 4 3 - 11 LAB CHEMISTRY METHOD 12/11/2024 11:11 AM [facility] LAB Glucose 89 70 - 100 mg/dL LAB CHEMISTRY METHOD 12/11/2024 11:11 AM [facility] BUN 17 5 - 25 mg/dL LAB CHEMISTRY METHOD 12/11/2024 11:11 AM [facility] LAB Creatinine 0.83 0.50 - 1.10 mg/dL LAB CHEMISTRY METHOD 12/11/2024 11:11 AM [facility] LAB eGFR 76 >=60 mL/min/1. 73m2 LAB CHEMISTRY METHOD 12/11/2024 11:11 AM [facility] LAB Comment:Calculation based on the??Chronic Kidney Disease Epidemiology Collaboration (CKD-EPI) equation refit??without adjustment for race. BUN/Creatinine Ratio 20.5 LAB CHEMISTRY METHOD 12/11/2024 11:11 AM [facility] LAB Calcium 8.6 8.5 - 10.5 mg/dL LAB CHEMISTRY METHOD 12/11/2024 11:11 AM [facility] LAB Blood Venous blood specimen / Unknown Venipuncture / Unknown 12/11/2024 6:30 AM EST 12/11/2024 9:22 AM EST us Glenroy Goff MD LAB BLOOD ORDERABLES Final Resul t [facility] LAB [address] [place] [address], * (ABNORMAL) Complete blood count (12/11/2024 6:30 AM EST) [facility] WBC 7.2 4.8 - 10.8 K/mcL LAB HEMETOLOGY METHOD 12/11/2024 11:11 AM [facility] RBC 3.00(L) 3.80 - 4.80 M/mcL LAB HEMETOLOGY METHOD 12/11/2024 11:11 AM [facility] Hemoglobin 7.5(L) 11.5 - 16.0 g/dL LAB HEMETOLOGY METHOD 12/11/2024 11:11 AM [facility] LAB Hematocrit 26.9(L) 35.0 - 47.0 % LAB HEMETOLOGY METHOD 12/11/2024 11:11 AM [facility] MCV 89.4 79.0 - 98.0 FL LAB HEMETOLOGY METHOD 12/11/2024 11:11 AM [facility] MCH 24.9(L) 27.0 - 32.0 pcg LAB HEMETOLOGY METHOD 12/11/2024 11:11 AM [facility] LAB MCHC 27.9(L) 32.0 - 37.0 g/dL LAB HEMETOLOGY METHOD 12/11/2024 11:11 AM [facility] LAB RDW 15.7(H) 11.0 - 15.0 % LAB HEMETOLOGY METHOD 12/11/2024 11:11 AM [facility] Platelets 399 130 - 400 K/mcL LAB HEMETOLOGY METHOD 12/11/2024 11:11 AM [facility] LAB MPV 10.0 7.0 - 11.0 FL LAB HEMETOLOGY METHOD 12/11/2024 11:11 AM [facility] LAB NRBC 0.0 <1.0 % LAB HEMETOLOGY METHOD 12/11/2024 11:11 AM EST [facility] LAB NRBC Absolute 0.00 <0.10 K/mcL LAB HEMETOLOGY METHOD 12/11/2024 11:11 AM EST [facility] LAB Blood Venous blood specimen / Unknown Venipuncture / Unknown 12/11/2024 6:30 AM EST 12/11/2024 9:22 AM EST us Glenroy Goff MD LAB BLOOD ORDERABLES Final Resul t [facility] LAB [address] [place] [address], documented in this encounter Visit Diagnoses Diagnosis Chronic obstructive pulmonary disease, unspecified (CMS/HCC) documented in this encounter Care Teams City Superintendent Relationship Specialty Start Date End Date Yann Manzanares MD [address] [facility] [address] [place] [address] PCP - General 02/08/24 documented as of this encounter
--- OUTSIDE RECORDS SUMMARY | 2025-02-06 16:59 | XMS_ITS | Data Portability ---
Author Organization [place] - [facility], Allergy Address [address] [place] [phone] Care Team Providers Care Transcriber Name Role Phone BRADLEY LICHAMarcos Primary Care Provider Assessment Encounter Date Assessment [...] for this as well as list of [place] health providers and a copy of today's audiogram. [email or web address] Not available 01/15/2025 11:55:07 01/15/2025 01/15/2025 Potential BiCros candidate - refer to provider [email or web address] Not available 01/15/2025 11:26:15 Plan of Treatment [...] Sensorine ural hearing loss of bilateral ears [id number] Active 2016 Sensorine ural hearing loss, bilateral ; Note: Date Diagnosed : 01/27/2017 10:56 AM (H90.3) Not Available [facility] 4 03:15:55 Bilateral diffuse otitis externa [id number] 47612 Active 2019 Diffuse otitis externa, bilateral ; Note: Date Diagnosed : 02/08/2020 12:16 PM (H60.313) Not Available [facility] 4 03:15:55 Dizziness and giddiness 828729883 Active 2016 Dizziness and giddiness ; Note: Date Diagnosed : 01/27/2017 11:15 AM (R42) Not Available [facility] 4 03:15:55 Posterior rhinorrhe a 61258749 Active 2019 Postnasal drip; Note: Date Diagnosed : 02/08/2020 12:53 PM (R09.82) Not Available [facility] 4 03:15:56 Problem Notes None recorded. Procedures Surgical History Date Name Laterality Status Provider Name and Address Organization Details Recorded Time 01/15/2025 Comp Audio with Tymps (06354 & 56420) completed DEL KOO, [address],[place] [address], [place], [address], [facility] - [facility] 01/15/2025 11:26:17 Imaging Results Imaging Date Name Status LastModified by Organiz ation Details LastModified Time 01/15/2025 audiogram completed BARCODE Information no t available 01/15/2025 15:18:29 Procedure Notes None recorded. Medical Equipment None Reported. Allergies Allergen ID Allergen Name Allergen Category Reaction Reaction Severity Criticality Documentation Date Start Date Code Code System Note Provider Name and Address Organization Details Recorded Time 286410 haloperid ol lactate medicatio n other Not available Not available 04/10/2024 13872 3 RxNorm React ion: unkno wn, unspe cifie d;; Not Available [facility] 4 01:14:03 852740 codeine sulfate medicatio n other Not available Not available 04/10/2024 37537 RxNorm React ion: unkno wn, unspe cifie d;; Not Available [facility] 4 01:14:04 877645 Substance with sulfonami de structure and antibacte rial mechanism of action (substanc e) medicatio n other Not available Not available 04/10/2024 10678 8003 SNOMED React ion: unkno wn, unspe cifie d;; Not Available [facility] 4 01:14:05 Medications Name Sig Start Date [...] nebulizati on 2016 active Medicatio n ID: [id number] Br and Name: albuterol sulfate S end Method: E-Prescri bed Subs Allowed: subs OK Medica tionGener icName: albuterol sulfate Not Available Not Available Not Available Colace 100 mg capsule 2016 active Medicatio n ID: [id number] Br and Name: Colace Se nd Method: [...] release,12 hr 2016 active Medicatio n ID: [id number] Du ration Value: 30 Brand Name: theophyll [...] by mouth 2016 active Medicatio n ID: [id number] Du ration Value: 30 Brand Name: Claritin Send Method: E-Prescri bed Subs Allowed: subs OK Medica tionGener icName: Claritin Not Available Not Available Not Available Artificial Tears (dextran 70-hyprome llose) eye drops 2016 active Medicatio n ID: [id number] Br and Name: Artificia l Tears(dex [id number] ) Send Method: E-Prescri bed Subs Allowed: subs OK Medica tionGener icName: Artificia l Tears(dex [id number] ) Not Available Not Available Not Available [...] mg tablet 2016 active Medicatio n ID: [id number] Du ration Value: 30 Brand Name: atenolol [...] magnesium) tablet 2016 active Medicatio n ID: [id number] Du ration Value: 30 Brand Name: magnesium oxide Sen d Method: E-Prescri bed Subs Allowed: subs OK Specia l Instructi on: TK 1 T PO QD Medica tionGener icName: magnesium oxide Not Available Not Available Not Available lorazepam 0.5 mg tablet 2016 active Medicatio n ID: [id number] Du ration Value: 30 Brand Name: lorazepam Send Method: E-Prescri bed Subs Allowed: subs OK Specia l Instructi on: TK 1 T PO QHS PRF SLEEP Med icationGe nericName : lorazepam Not Available Not Available Not Available morphine 10 mg/mL intravenou s solution 2016 active Medicatio n ID: [id number] Br and Name: morphine Send Method: E-Prescri bed Subs Allowed: subs OK Medica tionGener icName: morphine Not Available Not Available Not Available pantoprazo le 40 mg tablet,del ayed release TAKE 1 TABLET BY MOUTH EVERY DAY IN THE MORNING active Not Available Not Available No t Available Advair Diskus 250 mcg-50 mcg/dose powder for inhalation 2016 active Medicatio n ID: [id number] Br and Name: Advair Diskus Se nd Method: E-Prescri bed Subs Allowed: subs OK Medica tionGener icName: Advair Diskus Not Available Not Available Not Available nicotine 21 mg/24 hr daily transderma l patch 2016 active Medicatio n ID: [id number] Du ration Value: 28 Brand Name: nicotine [...] mg tablet 2016 active Medicatio n ID: [id number] Du ration Value: 30 Brand Name: lamotrigi [...] sustained- release 2016 active Medicatio n ID: [id number] Du ration Value: 30 Brand Name: bupropion HCl Send Method: E-Prescri bed Subs Allowed: subs OK Specia l Instructi on: TK 1 T PO QAM Medic ationGene ricName: bupropion HCl Not Available Not Available Not Available aripiprazo le 15 mg tablet 2016 active Medicatio n ID: [id number] Du ration Value: 30 Brand Name: aripipraz [...] inhalation capsules 2016 active Medicatio n ID: [id number] Du ration Value: 30 Brand Name: Spiriva [...] mg tablet 2016 active Medicatio n ID: [id number] Du ration Value: 30 Brand Name: Sabrina [...] SNOMED-CT Code Diagnosis ICD10 Code Diagnosis Note [id number] KALEN MAC MD [facility] [address] [phone] 01/15/2025 10:56:41 01/15/2025 11:53:57 Sensorineural hearing loss of bilateral ears [id number] H90.3 [id number] INDIGO JUDGE [facility] [address] [phone] 01/15/2025 11:23:44 01/16/2025 07:43:57 Sensorineural hearing loss of bilateral ears [id number] H90.3 Audiologic al evaluation results: 01/15/2025 Right [...] Policy Number Policy Garcia Covered Member ID Garica Member ID Guarantor Name 01/15/2025 1 [place] [employer] Lluvia A Lahair [id number] Lluvia A Lahair 01/15/2025 2 [place] [facility] Lluvia A Lahair [id number] Lluvia A Lahair 01/15/2025 1 [place] [employer] Lluvia A Lahair [id number] Lluvia A Lahair 01/15/2025 2 [place] Lluvia A Lahair [id number] Lluvia A Lahair Notes Date Note Type Note Provider Name and Address Organization Details Recorded Time 01/15/2025 text/html HT medical clearance, known asymmetrical SNHL >>AD DEL KOO, [address] [address], [place], [address], [facility] - [facility] 01/15/2025 11:27:24 01/15/2025 text/html 69 year old florencia mesa presents to the office for hearing evaluation. She currently lives at home with her daughter but had been living in nursing homes and group homes over the past few years. She also presents here today with her [employer]. She has been using an over the counter hearing aid in the right ear with poor result. She has known profound hearing loss on the left from a left sudden hearing loss in the past. KALEN MAC MD [address] [place] [address], [place], [address], [facility] - [facility] 01/15/2025 20:55:02 OBGyn Episode No OBEpisode recorded.
== END 2025-02-06 14:26 | disposition home or self-care (01) ==
LOC: HO.HAP 14:25
PROVIDERS: Visit Provider Student in an Organized Health Care Education/Training Program
DX: Z46.1 Encounter for fitting and adjustment of hearing aid (principal); H90.3 Sensorineural hearing loss, bilateral
CPT/HCPCS: V5011; V5020; V5221; V5240

== ENCOUNTER 2025-02-21 13:14 | Outpatient (AMB) | payer MEDICARE, MEDICAID, SELFPAY ==
[2025-02-21 13:23] VITALS: BP 112/68; PULSE 65; O2SAT 93; BMI 34.8
--- NOTE | 2025-02-21 13:23 | MHC.OFFVIS ---
Vital Signs 02/21/25 13:23 Height 5 ft 1 in Weight 184 lb 1.376 oz BMI 34.8 BP 112/68 Blood Pressure Location Rt brachial Position Sitting Pulse 65 Pulse Source Pulse Oximeter Pulse Oximetry (%) 93 Oxygen Delivery Method Nasal Cannula Oxygen Flow Rate 3 Intake Visit Reasons: COPD follow-up Allergies codeine [Codeine] Allergy (Intermediate, Verified 02/21/25 13:30) RESTLESS/RASH haloperidol [Haldol] Allergy (Intermediate, Verified 02/21/25 13:30) Palpitations Sulfa (Sulfonamide Antibiotics) Allergy (Intermediate, Verified 02/21/25 13:30) HIVES HPI Comments Details: The patient is a 69-year-old woman with known history of COPD and chronic hypoxic and hypercarbic respiratory failure. She 1st did require a tracheostomy in the past and she had a prolonged hospitalization which she was able to be decannulated. She was then placed on noninvasive ventilation. The patient has been inconsistent with the usage. In January of this year the patient was admitted to the hospital with acute on chronic hypercarbic respiratory failure where her pCO2 was about 118 mmHg.. The patient was placed on noninvasive ventilation and her pH normalize and her average pCO2 was between 60-70. She was discharged to use her trilogy at home. At home she is still struggling with the noninvasive ventilator. She has a hard time getting used to it. Her [employer], [employer] will be performing overnight oximetry with an end-tidal CO2 to measure her see you to into appropriately adjust her noninvasive ventilator. She also has made mentioning that she has been more short of breath and she has had more hypoxia. In the office we did perform a 6 minutes walk test and she did require 2 L nasal cannula to maintain her pulse ox above 90%. Therefore, she will be using 3 L instead of to with activity and also with sleep. 04/15/2023 the patient is here for pulmonary follow-up visit. She still residing at the [facility]. She is using her trilogy noninvasive ventilator every night. However, she has been using more recently because she ended up in the hospital. She was having chest pressure sensation and dizziness. During the hospitalization at [facility] the patient states that she had an ABG done demonstrating a pCO2 58 and per report was okay. Therefore, will hold off on doing an ABG today. The patient has been fairly relatively well from a respiratory status. She does complaint of heaviness of the chest. On examination she is very diminished. Therefore likely has significant air trapping hyperinflation them every resulting in some chest pressure sensation. I did recommend she start using the trilogy with a sip and puff during the daytime to help her with the air trapping. The patient has also gained weight and that is also going to contribute to additional respiratory symptoms. The patient needs to start working on weight management with the help of the services provided. The patient is using her diuretics with good effect. No significant edema at this time. It is not clear if she is using the theophylline. She has been on multiple medications and has got to multiple institutions so therefore it is hard to know if those removed and if it was stopped for particular reason. We should recheck her theophylline levels if she is on theophylline. Otherwise restart the theophylline if she is off it and then recheck levels. She should stay within the low therapeutic range to help her with her severe COPD. Patient is using her oxygen at 3 L continues with good effect. Again, I reached out to the [email or web address], to rete she had uses sip and puff device that she can use during the daytime 06/17/2023 the patient is here for pulmonary follow-up visit. The patient has been doing well. She is looking now to move to a penitentiary. in the meantime she is using her noninvasive ventilator. The noninvasive ventilator has been affecting beneficial. We did have her undergo a venous blood gas in appears that her pH is stable. She understands that if she does move to a penitentiary she went to find a way to make sure that she continues use her noninvasive ventilator as prescribed. She continues on respiratory therapy. She continues oxygen supplementation at 3 L could would response. 09/20/2023 the patient has a telehealth visit today. Unfortunately she could not make it in from her residence. She has been more depressed lately. She has recently found out that she lost the services from her [facility]. There been with her for many years. In addition to that the patient has not been using her Trelegy ventilator. She is try to find out how long she can go without it. She was wondering if she can have blood work to see how well her CO2 is while she is not using it. However, I encouraged her to use it since we know that her baseline CO2 is already elevated and by using the ventilator she has better reserved in case she develops an exacerbation or an acute illness. The patient will start using her ventilator at nighttime. I did put him for blood work and she can always have the blood work done here or she can find out another means of doing a. But getting a blood gas will be difficult to do otherwise. The patient did recently have a respiratory illness with a virus. Was not COVID. She was not giving any prednisone or antibiotics. Her cough is not too bad. If the cough worsens with worsening congestion then using a antibiotic to minimize on the postviral bacterial infections would be reasonable. 12/23/2023 the patient is here for a pulmonary follow-up visit. Since we last spoke the patient did have a fall on her assisted. She fractured multiple ribs and was admitted to [facility] with acute on chronic hypercarbic respiratory failure. She was placed on BiPAP and was able to stabilize. She did not require invasive ventilation. The patient had not been using her noninvasive ventilator at the assisted. This is unfortunate. She understands the with her condition she relies on this therapy. The patient has been using now regularly since she was discharged from the hospital. She is looking to be placed in a penitentiary. Therefore, she is making the arrangements. We did have her undergo a venous blood gas today and her acid-base status is stable and pCO2 is back to her baseline. Her bicarbonate always will be elevated to try to compensate for the hypercarbia and right now is at 37. she does continue to use her respiratory therapy as prescribed. She is also using oxygen continuously throughout the day with good effect. Once the patient is out of the assisted to a penitentiary will see about getting pulmonary function studies and starting outpatient pulmonary rehabilitation. Also to note while she was at [facility] she did have a CT scan of the chest that was personally by me. She had multiple rib fractures on the left 1 which was displaced. Also has small subcentimeter pulmonary nodule that will follow-up in a year's time. 02/21/2024 the patient is here for pulmonary follow-up visit. The patient overall has been doing well. She did move out of the assisted in currently in a penitentiary. She is getting a lot of support. She is taking all her medications. Although, the theophylline 400 mg is not available. I will try sending her a different does see that was available and also will check theophylline levels. The patient has been using her noninvasive ventilator at nighttime. The therapy has been affecting beneficial. We did have her get blood work and it appears that her bicarb is down to 32 which is very encouraging. The patient also has been using her oxygen at 3 L continues will keep a go above 88%. The patient is able to increase it to 4 L if her oxygen is dropping below 88%. Will go ahead and request pulmonary function studies and plan for pulmonary rehabilitation at this time. Will follow-up in 3 months or sooner if any new issues arise. 05/24/2024 the patient is here for a pulmonary follow-up visit. She was recently at [facility]. There was an issue with her oxygen. Now she is back to her penitentiary. the having hard time regulating her oxygen. We did have her come in for 6 minute walk test. The patient needs 6 L of oxygen with activity and at least 2 L at rest. Although typically she needs more than 2 to keep her pulse ox above 90%. We did review her CT scan of the chest that she had while at [facility]. She has extensive emphysema which explains her very labile oxygen requirements. In addition to that she does have some pulmonary nodules that appear to have increased in size primarily in the left hemithorax. She will need a repeat CT scan in the next 3 months. She has minimal reserve. We did look at her previous PFTs demonstrating very severe COPD and severe diffusion impairment. however, the patient has been fairly well although she has had although severe disease. She has been using her noninvasive ventilator at nighttime. At least 6 hours. We did have her go for blood work including a venous gas demonstrating appears due to a baseline 61 mm of Hg. The patient does have some lower extremity edema. She will benefit from additional diuresis. In addition to that she is having increased wheezing chest tightness and cough. Therefore will send her a prednisone taper and also start an antibiotic. This will be to treat her for COPD exacerbation. She has participating in the pulmonary rehabilitation. She has fine the very affecting beneficial. She will continue for now. 07/06/2024 the patient is here for a pulmonary follow-up visit. She has been in an out of hospital. She has been trying to use her noninvasive ventilator more regularly. She understands it is a necessity for her to use it at least every night. She also continues with respiratory therapy. She has been responding well to the oxygen supplementation. Last blood gas was back the end of May demonstrating a pCO2 around 70 which is close to her baseline. She continues with respiratory therapy with good effect. Appears to have increasing lower extremity edema. Likely secondary to a component I will call pulmonale. Needs to continue with a low sodium diet and diuresis. CXR from 06/21/23 personally reviewed by me without any acute changes. 09/13/2024 the patient has a telehealth visit today. She is status post couple hospitalizations. Now she is at rehab and this is a telehealth. The patient initially was admitted to [facility] back at the end of June with acute on chronic respiratory failure. She was diagnosed with COVID a. During that admission she did have a CT a that I did evaluate. She did have an irregular nodular density in the left upper lobe likely infectious process although since his new and she is high risk for cancer we can not rule out malignancy. She was treated and then subsequently discharged back to her penitentiary. Subsequently after that she went to [facility]. The details are not available but she likely had a tachyarrhythmia. She did require cardioversion. Afterwards the patient was transferred to [facility] which is currently getting rehabilitation. She feels weak. She has a hard time walking. Her oxygen requirements are still about the same 3 L at rest and 6 L with activity. She is also having issues with her noninvasive ventilator which she is waking up short of breath. Therefore, will have her have a repeat 6 minute walk test while she is there she should also continue with multi disciplinary therapies in addition to that will talk to respiratory there to see if they can tweak her ventilator to a higher pressure to help her with those difficult times. The patient plans to go back to her penitentiary. 10/22/2024 the patient is here for hospital follow-up visit. She had been in the hospital with acute on chronic hypoxic and hypercarbic respiratory failure and subsequently went to [facility]. She is currently read some. She is not going back to the penitentiary. She is trying to feel better enough to be able to go to her daughter's. There she could have some assistance from with the family and also some medical assistance. But she is still not clear. She does use the noninvasive ventilator. She did get an placement while at rest own. She is tolerating well. Will have her get a blood gas to see what her CO2 is. In addition to that which she check her theophylline level since she has noticed some tachycardia. She continues to feel weak. She feels like her legs want to give out when she is ambulating. Strikes me that could be related to her CO2 as she has had issues with falls and weakness when her CO2 elevates. 11/15/2024 the patient is here for pulmonary follow-up visit. Since we last spoke she went to [facility] with worsening shortness of breath. There she did have a CT scan of the chest which I personally reviewed. This was done 11/02/20[address] she [address] a CT scan here at [facility] in the summer of 2023 and she had another CT scan at [facility] in 12/17/2023. I did review all of them. She does have a left upper lobe pulmonary nodule that appears to be worsening. There is significant concerned with his nodule for a smoldering infection process such as a fungal infection could be a localized bacterial infection but could also be a malignant process. The patient understands that her lung capacity significantly limited and with end-stage pulmonary disease and we difficult to do any invasive or semi-invasive procedures for diagnostic purposes. Therefore, rather treat her empirically. Will go ahead and request blood work including galactomannan and other laboratories. And will go ahead and treat her for potential staph infection or fungal infection. Plan to repeat the CT scan a couple months. If the area still present then will have to discuss how to proceed. Again, the patient is high risk for any intervention. In the meantime she has been using the noninvasive ventilator. The ventilator has been affecting beneficial although she continues to have elevations in the CO2. Will have to adjusted accordingly. The patient also may have a component of sleep apnea and an in-lab sleep study may be helpful as well to further address any significant sleep apnea and subsequently asleep PAP titration study to properly treat her underlying sleep apnea. She will continue with current respiratory therapy as prescribed. She will continue with the oxygen as prescribed. 12/20/2024 the patient is here for a pulmonary follow-up visit. Overall she is doing well. She is moving out of bed some going with her daughter. She is excited. In the meantime she has been using her noninvasive ventilator every night. The therapy has been affecting beneficial although she feels like sometimes she wakes up breathless and sometimes her oxygen requirements are increased. We will request a download in order to be able to adjust the machine accordingly with the help of [employer]. In addition to that she was admitted briefly to [facility] with significant anemia. She was placed on iron and now she is a little constipated. She is going to monitor closely her anemia specially because of her significant respiratory disease the anemia will ultimately resulting significantly worsening respiratory symptoms. If we not able to adjust her noninvasive ventilator appropriately that we can always consider a titration study. She also had an abnormal CT scan back in October and we had requested repeat. In the meantime she went to [facility] she did have a chest x-ray which is reassuring. Demonstrating emphysema and chronic stable findings. 01/18/2025 the patient is here for a pulmonary follow-up visit. Overall she is doing better. She was sickly with flu-like symptoms but now she is back to her baseline. She is using her noninvasive ventilation at nighttime although she still trying to find the right mask. We did have a phone small air touch F20 mask available. Seems to fit well and I believe she will do better with a full mask so it does not make as much noise. The patient also has been using her respiratory therapy. I will send all her medications to the pharmacy. In addition to this the patient did have a CT scan of the chest that we personally certainly reviewed and compared to her previous CT from from June. It appears that the masslike density in the left upper lobe is getting bigger. It is concerning for malignancy specially since she was treated for fungal infections and she has been treated for infectious bacterial infections as well without any evidence of any improvement. Therefore, will go ahead and request a PET scan to see if there is any significant evidence of hypermetabolic activity. Any kind of biopsy would be dangerous because of her significant respiratory failure. We can also consider stereotactic radiation to the area if is concerning enough on the PET scan without a biopsy. Will plan to follow-up after her PET scan several weeks. 02/21/2025 the patient is here for a pulmonary follow-up visit. Overall the patient has been feeling much better from a respiratory status. She has been using her noninvasive ventilator the whole night sometimes up to 10 hours a day. This is helping her feel better overall. Her respiratory medications and regimen is seems to be stable and she is tolerating it. She is gaining weight and we did talk about that. She needs to work on portion control Lifestyle changes. In the meantime she did undergo a PET scan. We did personally review together. She did have an FDG activity of 8 of the area of the left upper lobe peripheral nodular density. Indeed is concerning. She was already treated empirically for aspergilloma and also treated with antibiotics. This area indeed is concerning for malignancy. The issue is that she does have significant chronic hypercarbic and hypoxic respiratory failure and any procedure will potentially high risk. We did talk about a CT-guided biopsy although would have to go to her breast tissue and could result in a pneumothorax and so peripheral. The other option will be navigational bronchoscopy robotic bronchoscopy under general anesthesia. Which she should be able to tolerate but the anesthesia is indeed concerning for worsening perioperative complications. Will go ahead and refer her to Interventional Pulmonary to see if any interventions could be considered for her. In the meantime will go ahead and treat her with Bactrim although she has not allergy. Want to make sure we treat for smoldering infection such as Nocardia which can manifest in this form. Therefore the patient will start Bactrim I put him for CAT scan for 6 weeks from now to see those any improving the area and also she will follow-up with intervention a pulmonary. [facility] Medical History (Updated 02/21/25 @ 14:08 by Caden Acharya MD) Pulmonary nodule 1 cm or greater in diameter Lung mass RITA (obstructive sleep apnea) Cor pulmonale Rib fractures Pulmonary nodule Tubular adenoma of colon (~2006) Osteopenia (~2012) Bronchopneumonia Chest pain Chronic respiratory alkalosis ILD (interstitial lung disease) CO2 retention Acute on chronic respiratory failure with hypoxia and hypercapnia Bipolar depression Eczema Limb swelling Insomnia Bronchitis Vasomotor rhinitis COPD (chronic obstructive pulmonary disease) Chronic respiratory failure Fall Acute metabolic encephalopathy Acute and chronic respiratory failure with hypercapnia Surgical History History of carpal tunnel surgery (~2000) History of ventral hernia repair (~2003) History of left inguinal hernia repair (~1995) History of tracheostomy (~2016) History of cataract surgery (~2018) History of colonoscopy Family History Other Hypertension Social History Household Members: None Household Members Other:: penitentiary Housing: Other Housing Other:: penitentiary Are you a primary child care attendant to a significant other at home: No Do you presently have visiting nurse or other home services: Yes (penitentiary services) Alcohol intake: former Patient Tobacco Use Status: Former Tobacco user Tobacco use type: Cigarette Years Smoked: 20+ years e-Cigarette/Vaping Use: Never Used Second Hand Smoke Exposure: No Advance Directives Date on File: 11/30/21 service: No Current occupational status: disabled Review of Systems Const Reports fatigue, Denies night sweats and Reports weight gain ENT Denies change in voice, Denies lip swelling, Denies mouth pain, Reports nasal congestion, Reports nasal discharge and Denies tongue swelling Card Denies chest pain, Reports pedal edema, Denies leg edema, Reports dyspnea and Reports dyspnea on exertion Resp Denies change in phlegm color, Denies chest congestion, Reports cough, Reports dyspnea, Reports dyspnea on exertion and Reports wheezing GI Denies abdominal pain Musc Denies no additional complaints, Reports abnormal gait and Reports muscle weakness Skin/Breast Reports erythema and Reports skin swelling Neuro Denies Neuro-related abnormal movements, Reports abnormal gait, Reports memory loss and Reports tremor(s) Psych Reports depression and Reports memory loss Endo Reports fatigue Gerson/Lymph Denies easy bleeding and Denies lymphadenopathy Aller/Immun Denies lip swelling, Denies tongue swelling and Reports wheezing Physical Exam Vital Signs: Last Vital Signs Pulse 65 02/21/25 13:23 BP 112/68 02/21/25 13:23 Pulse Ox 93 02/21/25 13:23 Oxygen Delivery Method Nasal Cannula 02/21/25 13:23 Oxygen Flow Rate 3 02/21/25 13:23 BMI result Body Mass Index 34.8 Last Vital Signs Temp 98.2 F 04/15/22 15:12 Pulse 97 04/15/22 15:26 Resp 18 04/15/22 15:26 BP 144/69 H 04/15/22 15:12 Pulse Ox 94 04/15/22 15:12 Oxygen Flow Rate 3 04/13/22 08:52 BMI result Body Mass Index 31.3 Const General: alert Neck Neck: Yes normal visual inspection, Yes full ROM and Yes no lymphadenopathy Chest Chest palpation & inspection: normal inspection of the chest Resp Effort & Inspection: normal respiratory effort and prolonged expiratory phase Auscultation: diminished lung sounds Cardio Rate: regular rate Rhythm: regular rhythm Heart sounds: S1 normal heart sound present and S2 normal heart sound present GI Palpation (GI): Soft to palpation and nontender Auscultation: normal bowel sounds Skin General skin exam: rashes and/or lesions noted Assessment & Plan Assessment & Plan (1) Pulmonary nodule 1 cm or greater in diameter: Code(s): R91.1 - Solitary pulmonary nodule Category: Medical (2) COPD (chronic obstructive pulmonary disease): Code(s): J44.9 - Chronic obstructive pulmonary disease, unspecified Category: Medical Qualifiers: COPD type: emphysema Emphysema type: centrilobular Qualified Code(s): J43.2 - Centrilobular emphysema (3) Pulmonary nodule: Comment: increasing in size CELINA concerning for malignancy of local infection. High risk for any diagnostic interventions Code(s): R91.1 - Solitary pulmonary nodule Category: Medical (4) Chronic respiratory failure: Code(s): J96.10 - Chronic respiratory failure, unspecified whether with hypoxia or hypercapnia Category: Medical Qualifiers: Respiratory failure complication: hypoxia and hypercapnia Qualified Code(s): J96.11 - Chronic respiratory failure with hypoxia; J96.12 - Chronic respiratory failure with hypercapnia (5) Insomnia: Code(s): G47.00 - Insomnia, unspecified Category: Medical Qualifiers: Insomnia type: primary Qualified Code(s): F51.01 - Primary insomnia (6) Respiratory failure: Code(s): J96.90 - Respiratory failure, unspecified, unspecified whether with hypoxia or hypercapnia Category: Medical Qualifiers: Chronicity: chronic Respiratory failure complication: hypoxia and hypercapnia Qualified Code(s): J96.11 - Chronic respiratory failure with hypoxia; J96.12 - Chronic respiratory failure with hypercapnia (7) Chronic hypoxic respiratory failure: Code(s): J96.11 - Chronic respiratory failure with hypoxia Category: Medical (8) RITA (obstructive sleep apnea): Code(s): G47.33 - Obstructive sleep apnea (adult) (pediatric) Category: Medical Plan continue nighttime noninvasive ventilator use. Will repeat bloodgas next visit start Emperic Bactrim to treat for Nocardia Refer to IP for ?navigational bronch. Although, she is very high risk due to her respiratory failure. Otherwise CT guided biopsy, but highrisk for PTX plan to repeat CT chest in 6 weeks after 6 weeks of emperic bactrim. continue Breo continue Incruse continue respiratory therapy oxygen at 3 liters/minute at rest and 6L/minute weight management F/U 4-6 weeks Orders: Orders CT chest wo IV con 6 Weeks R91.1 - Solitary pulmonary nodule Referrals Thoracic/General Surgery Referral R91.1 - Solitary pulmonary nodule Medications: New sulfamethoxazole-trimethoprim 800-160 mg (Bactrim DS) 1 tab PO BID 60 tabs 3RF 30 days Coding Level of Care Code Est Pt Level 5 (64500) Complex EM visit Add On G2211 Diagnoses Pulmonary nodule 1 cm or greater in diameter R91.1 Centrilobular emphysema J43.2 COPD type: emphysema Emphysema type: centrilobular Pulmonary nodule R91.1 Chronic respiratory failure with hypoxia and hypercapnia J96.11; J96.12 Respiratory failure complication: hypoxia and hypercapnia Primary insomnia F51.01 Insomnia type: primary Chronic respiratory failure with hypoxia and hypercapnia J96.11; J96.12 Chronicity: chronic Respiratory failure complication: hypoxia and hypercapnia Chronic hypoxic respiratory failure J96.11 RITA (obstructive sleep apnea) G47.33 Time Spent (min) 45
--- OUTSIDE RECORDS SUMMARY | 2025-02-21 16:22 | XMS_ITS | Encounter Summary ---
Author Organization [facility] Address [address] [place] [address] Care Team Providers Care Machine Clothing Replacer Name Role Phone Yann Manzanares MD Primary Care Provider [phone] Encounter Details Date Type Department Care Team (Late st Contact Info) Description 10/27/2024 Lab Requisition [facility] - Main Lab [address] [facility] [place] [address] Janice Núñez MD [address] [place] [address] Chronic obstructive pulmonary disease, unspecified (CMS/HCC) Social [...] mmol/L LAB CHEMISTRY METHOD 10/29/2024 2:01 PM [facility] Potassium 3.6 3.5 - 5.5 mmol/L LAB CHEMISTRY METHOD 10/29/2024 2:01 PM [facility] Chloride 91(L) 96 - 110 mmol/L LAB CHEMISTRY METHOD 10/29/2024 2:01 PM [facility] CO2 40(H) 21 - 32 mmol/L LAB CHEMISTRY METHOD 10/29/2024 2:01 PM [facility] Anion Gap 7 3 - 11 LAB CHEMISTRY METHOD 10/29/2024 2:01 PM [facility] Glucose 86 70 - 100 mg/dL LAB CHEMISTRY METHOD 10/29/2024 2:01 PM [facility] BUN 15 5 - 25 mg/dL LAB CHEMISTRY METHOD 10/29/2024 2:01 PM [facility] Creatinine 0.89 0.50 - 1.10 mg/dL LAB CHEMISTRY METHOD 10/29/2024 2:01 PM [facility] eGFR 70 >=60 mL/min/1. 73m2 LAB CHEMISTRY METHOD 10/29/2024 2:01 PM [facility] Comment:Calculation based on the??Chronic Kidney Disease Epidemiology Collaboration (CKD-EPI) equation refit??without adjustment for race. BUN/Creatinine Ratio 16.9 LAB CHEMISTRY METHOD 10/29/2024 2:01 PM [facility] Calcium 9.3 8.5 - 10.5 mg/dL LAB CHEMISTRY METHOD 10/29/2024 2:01 PM [facility] Blood Venous blood specimen / Unknown Venipuncture / Unknown 10/29/2024 8:00 AM EST 10/29/2024 11:30 AM EST us Janice Núñez MD LAB BLOOD ORDERABLES Final Resul t [facility] [address] [place] [address], * (ABNORMAL) Complete blood count (10/29/2024 8:00 AM EST) [facility] WBC 6.3 4.8 - 10.8 K/mcL LAB HEMETOLOGY METHOD 10/29/2024 12:10 PM [facility] RBC 3.70(L) 3.80 - 4.80 M/mcL LAB HEMETOLOGY METHOD 10/29/2024 12:10 PM [facility] Hemoglobin 10.1(L) 11.5 - 16.0 g/dL LAB HEMETOLOGY METHOD 10/29/2024 12:10 PM [facility] Hematocrit 35.2 35.0 - 47.0 % LAB HEMETOLOGY METHOD 10/29/2024 12:10 PM [facility] MCV 94.1 79.0 - 98.0 FL LAB HEMETOLOGY METHOD 10/29/2024 12:10 PM [facility] MCH 27.0 27.0 - 32.0 pcg LAB HEMETOLOGY METHOD 10/29/2024 12:10 PM [facility] MCHC 28.7(L) 32.0 - 37.0 g/dL LAB HEMETOLOGY METHOD 10/29/2024 12:10 PM [facility] RDW 14.5 11.0 - 15.0 % LAB HEMETOLOGY METHOD 10/29/2024 12:10 PM [facility] Platelets 504(H) 130 - 400 K/mcL LAB HEMETOLOGY METHOD 10/29/2024 12:10 PM [facility] MPV 9.3 7.0 - 11.0 FL LAB HEMETOLOGY METHOD 10/29/2024 12:10 PM [facility] NRBC 0.0 <1.0 % LAB HEMETOLOGY METHOD 10/29/2024 12:10 PM EST [facility] NRBC Absolute 0.00 <0.10 K/mcL LAB HEMETOLOGY METHOD 10/29/2024 12:10 PM EST [facility] Blood Venous blood specimen / Unknown Venipuncture / Unknown 10/29/2024 8:00 AM EST 10/29/2024 11:30 AM EST us Janice Núñez MD LAB BLOOD ORDERABLES Final Resul t [facility] [address] [place] [address], documented in this encounter Visit Diagnoses Diagnosis Chronic obstructive pulmonary disease, unspecified documented in this encounter Care Teams Machine Clothing Replacer Relationship Specialty Start Date End Date Yann Manaznares MD [address] [place] [id number] PCP - General 02/08/24 documented as of this encounter
--- OUTSIDE RECORDS SUMMARY | 2025-02-21 16:22 | XMS_ITS | Encounter Summary ---
Author Organization [facility] Address [address] [place] [address] Care Team Providers Care Diamond Setter Apprentice Name Role Phone Yann Manzanares MD Primary Care Provider [phone] Encounter Details Date Type Department Care Team (Late st Contact Info) Description 11/09/2024 Lab Requisition [facility] - Main Lab [address] [facility] [place] [address] Janice Núñez MD [address] [place] [address] Chronic obstructive pulmonary disease, unspecified (CMS/HCC) Social [...] mmol/L LAB CHEMISTRY METHOD 11/12/2024 4:30 PM [facility] Potassium 4.1 3.5 - 5.5 mmol/L LAB CHEMISTRY METHOD 11/12/2024 4:30 PM [facility] Chloride 92(L) 96 - 110 mmol/L LAB CHEMISTRY METHOD 11/12/2024 4:30 PM [facility] CO2 43(HH) 21 - 32 mmol/L LAB CHEMISTRY METHOD 11/12/2024 4:30 PM [facility] Anion Gap 6 3 - 11 LAB CHEMISTRY METHOD 11/12/2024 4:30 PM [facility] Glucose 90 70 - 100 mg/dL LAB CHEMISTRY METHOD 11/12/2024 4:30 PM [facility] BUN 11 5 - 25 mg/dL LAB CHEMISTRY METHOD 11/12/2024 4:30 PM [facility] Creatinine 0.98 0.50 - 1.10 mg/dL LAB CHEMISTRY METHOD 11/12/2024 4:30 PM [facility] eGFR 62 >=60 mL/min/1. 73m2 LAB CHEMISTRY METHOD 11/12/2024 4:30 PM [facility] Comment:Calculation based on the??Chronic Kidney Disease Epidemiology Collaboration (CKD-EPI) equation refit??without adjustment for race. BUN/Creatinine Ratio 11.2 LAB CHEMISTRY METHOD 11/12/2024 4:30 PM [facility] Calcium 9.3 8.5 - 10.5 mg/dL LAB CHEMISTRY METHOD 11/12/2024 4:30 PM [facility] Blood Venous blood specimen / Unknown Venipuncture / Unknown 11/12/2024 8:41 AM EST 11/12/2024 11:35 AM EST us Janice Núñez MD LAB BLOOD ORDERABLES Final Resul t [facility] [address] [place] [address], * (ABNORMAL) Complete blood count (11/12/2024 8:41 AM EST) [facility] WBC 6.1 4.8 - 10.8 K/mcL LAB HEMETOLOGY METHOD 11/12/2024 11:55 AM [facility] RBC 3.50(L) 3.80 - 4.80 M/mcL LAB HEMETOLOGY METHOD 11/12/2024 11:55 AM [facility] Hemoglobin 9.2(L) 11.5 - 16.0 g/dL LAB HEMETOLOGY METHOD 11/12/2024 11:55 AM [facility] Hematocrit 32.4(L) 35.0 - 47.0 % LAB HEMETOLOGY METHOD 11/12/2024 11:55 AM [facility] MCV 93.9 79.0 - 98.0 FL LAB HEMETOLOGY METHOD 11/12/2024 11:55 AM [facility] MCH 26.7(L) 27.0 - 32.0 pcg LAB HEMETOLOGY METHOD 11/12/2024 11:55 AM [facility] MCHC 28.4(L) 32.0 - 37.0 g/dL LAB HEMETOLOGY METHOD 11/12/2024 11:55 AM [facility] RDW 14.4 11.0 - 15.0 % LAB HEMETOLOGY METHOD 11/12/2024 11:55 AM [facility] Platelets 435(H) 130 - 400 K/mcL LAB HEMETOLOGY METHOD 11/12/2024 11:55 AM [facility] MPV 9.7 7.0 - 11.0 FL LAB HEMETOLOGY METHOD 11/12/2024 11:55 AM [facility] NRBC 0.0 <1.0 % LAB HEMETOLOGY METHOD 11/12/2024 11:55 AM EST [facility] NRBC Absolute 0.00 <0.10 K/mcL LAB HEMETOLOGY METHOD 11/12/2024 11:55 AM EST [facility] Blood Venous blood specimen / Unknown Venipuncture / Unknown 11/12/2024 8:41 AM EST 11/12/2024 11:35 AM EST us Janice Núñez MD LAB BLOOD ORDERABLES Final Resul t [facility] [address] [place] [address], documented in this encounter Visit Diagnoses Diagnosis Chronic obstructive pulmonary disease, unspecified documented in this encounter Care Teams Diamond Setter Apprentice Relationship Specialty Start Date End Date Yann Manzanares MD [address] [address] PCP - General 02/08/24 documented as of this encounter
--- OUTSIDE RECORDS SUMMARY | 2025-02-21 16:22 | XMS_ITS | Encounter Summary ---
Author Organization [facility] Address [address] [place] [address] Care Team Providers Care Trainmaster Name Role Phone Yann Manzanares MD Primary Care Provider [phone] Encounter Details Date Type Department Care Team (Late st Contact Info) Description 12/11/2024 Lab Requisition [facility] - Main Lab [address] [facility] [place] [address] Glenroy Goff MD [address] [place] [address] [address] [place], [address] Chronic obstructive pulmonary disease, unspecified (CMS/HCC) [...] mmol/L LAB CHEMISTRY METHOD 12/11/2024 11:11 AM [facility] Potassium 4.1 3.5 - 5.5 mmol/L LAB CHEMISTRY METHOD 12/11/2024 11:11 AM [facility] Chloride 84(L) 96 - 110 mmol/L LAB CHEMISTRY METHOD 12/11/2024 11:11 AM [facility] CO2 43(HH) 21 - 32 mmol/L LAB CHEMISTRY METHOD 12/11/2024 11:11 AM [facility] Anion Gap 4 3 - 11 LAB CHEMISTRY METHOD 12/11/2024 11:11 AM [facility] Glucose 89 70 - 100 mg/dL LAB CHEMISTRY METHOD 12/11/2024 11:11 AM [facility] BUN 17 5 - 25 mg/dL LAB CHEMISTRY METHOD 12/11/2024 11:11 AM [facility] Creatinine 0.83 0.50 - 1.10 mg/dL LAB CHEMISTRY METHOD 12/11/2024 11:11 AM [facility] eGFR 76 >=60 mL/min/1. 73m2 LAB CHEMISTRY METHOD 12/11/2024 11:11 AM [facility] Comment:Calculation based on the??Chronic Kidney Disease Epidemiology Collaboration (CKD-EPI) equation refit??without adjustment for race. BUN/Creatinine Ratio 20.5 LAB CHEMISTRY METHOD 12/11/2024 11:11 AM [facility] Calcium 8.6 8.5 - 10.5 mg/dL LAB CHEMISTRY METHOD 12/11/2024 11:11 AM [facility] Blood Venous blood specimen / Unknown Venipuncture / Unknown 12/11/2024 6:30 AM EST 12/11/2024 9:22 AM EST us Glenroy Goff MD LAB BLOOD ORDERABLES Final Resul t [facility] [address] [place] [address], * (ABNORMAL) Complete blood count (12/11/2024 6:30 AM EST) [facility] WBC 7.2 4.8 - 10.8 K/mcL LAB HEMETOLOGY METHOD 12/11/2024 11:11 AM [facility] RBC 3.00(L) 3.80 - 4.80 M/mcL LAB HEMETOLOGY METHOD 12/11/2024 11:11 AM [facility] Hemoglobin 7.5(L) 11.5 - 16.0 g/dL LAB HEMETOLOGY METHOD 12/11/2024 11:11 AM [facility] Hematocrit 26.9(L) 35.0 - 47.0 % LAB HEMETOLOGY METHOD 12/11/2024 11:11 AM [facility] MCV 89.4 79.0 - 98.0 FL LAB HEMETOLOGY METHOD 12/11/2024 11:11 AM [facility] MCH 24.9(L) 27.0 - 32.0 pcg LAB HEMETOLOGY METHOD 12/11/2024 11:11 AM [facility] MCHC 27.9(L) 32.0 - 37.0 g/dL LAB HEMETOLOGY METHOD 12/11/2024 11:11 AM [facility] RDW 15.7(H) 11.0 - 15.0 % LAB HEMETOLOGY METHOD 12/11/2024 11:11 AM [facility] Platelets 399 130 - 400 K/mcL LAB HEMETOLOGY METHOD 12/11/2024 11:11 AM [facility] MPV 10.0 7.0 - 11.0 FL LAB HEMETOLOGY METHOD 12/11/2024 11:11 AM [facility] NRBC 0.0 <1.0 % LAB HEMETOLOGY METHOD 12/11/2024 11:11 AM EST [facility] NRBC Absolute 0.00 <0.10 K/mcL LAB HEMETOLOGY METHOD 12/11/2024 11:11 AM EST [facility] Blood Venous blood specimen / Unknown Venipuncture / Unknown 12/11/2024 6:30 AM EST 12/11/2024 9:22 AM EST us Glenroy Goff MD LAB BLOOD ORDERABLES Final Resul t [facility] [address] [place] [address], documented in this encounter Visit Diagnoses Diagnosis Chronic obstructive pulmonary disease, unspecified documented in this encounter Care Teams Trainmaster Relationship Specialty Start Date End Date Yann Manzanares MD [address] [facility] [address] [place] [address] PCP - General 02/08/24 documented as of this encounter
--- OUTSIDE RECORDS SUMMARY | 2025-02-21 16:22 | XMS_ITS | Encounter Summary ---
Author Organization [facility] Address [address] [place] [address] Care Team Providers Care Commercial Reporter Name Role Phone Yann Manzanares MD Primary Care Provider [phone] Encounter Details Date Type Department Care Team (Late st Contact Info) Description 10/19/2024 Lab Requisition [facility] - Main Lab [address] [facility] [place] [address] Janice Núñez MD [address] [place] [address] Chronic obstructive pulmonary disease, unspecified (CMS/HCC) Social [...] mmol/L LAB CHEMISTRY METHOD 10/22/2024 4:26 PM [facility] Potassium 3.8 3.5 - 5.5 mmol/L LAB CHEMISTRY METHOD 10/22/2024 4:26 PM [facility] Chloride 94(L) 96 - 110 mmol/L LAB CHEMISTRY METHOD 10/22/2024 4:26 PM [facility] CO2 41(HH) 21 - 32 mmol/L LAB CHEMISTRY METHOD 10/22/2024 4:26 PM [facility] Anion Gap 3 3 - 11 LAB CHEMISTRY METHOD 10/22/2024 4:26 PM [facility] Glucose 82 70 - 100 mg/dL LAB CHEMISTRY METHOD 10/22/2024 4:26 PM [facility] BUN 12 5 - 25 mg/dL LAB CHEMISTRY METHOD 10/22/2024 4:26 PM [facility] Creatinine 0.94 0.50 - 1.10 mg/dL LAB CHEMISTRY METHOD 10/22/2024 4:26 PM [facility] eGFR 65 >=60 mL/min/1. 73m2 LAB CHEMISTRY METHOD 10/22/2024 4:26 PM [facility] Comment:Calculation based on the??Chronic Kidney Disease Epidemiology Collaboration (CKD-EPI) equation refit??without adjustment for race. BUN/Creatinine Ratio 12.8 LAB CHEMISTRY METHOD 10/22/2024 4:26 PM [facility] Calcium 9.2 8.5 - 10.5 mg/dL LAB CHEMISTRY METHOD 10/22/2024 4:26 PM [facility] Blood Venous blood specimen / Unknown Venipuncture / Unknown 10/22/2024 8:17 AM EST 10/22/2024 11:52 AM EST us Janice Núñez MD LAB BLOOD ORDERABLES Final Resul t [facility] [address] [place] [address], * (ABNORMAL) Complete blood count (10/22/2024 8:17 AM EST) [facility] WBC 5.5 4.8 - 10.8 K/mcL LAB HEMETOLOGY METHOD 10/22/2024 12:22 PM [facility] RBC 3.40(L) 3.80 - 4.80 M/mcL LAB HEMETOLOGY METHOD 10/22/2024 12:22 PM [facility] Hemoglobin 9.4(L) 11.5 - 16.0 g/dL LAB HEMETOLOGY METHOD 10/22/2024 12:22 PM [facility] Hematocrit 32.9(L) 35.0 - 47.0 % LAB HEMETOLOGY METHOD 10/22/2024 12:22 PM [facility] MCV 96.8 79.0 - 98.0 FL LAB HEMETOLOGY METHOD 10/22/2024 12:22 PM [facility] MCH 27.6 27.0 - 32.0 pcg LAB HEMETOLOGY METHOD 10/22/2024 12:22 PM [facility] MCHC 28.6(L) 32.0 - 37.0 g/dL LAB HEMETOLOGY METHOD 10/22/2024 12:22 PM [facility] RDW 15.0 11.0 - 15.0 % LAB HEMETOLOGY METHOD 10/22/2024 12:22 PM [facility] Platelets 417(H) 130 - 400 K/mcL LAB HEMETOLOGY METHOD 10/22/2024 12:22 PM [facility] MPV 9.8 7.0 - 11.0 FL LAB HEMETOLOGY METHOD 10/22/2024 12:22 PM [facility] NRBC 0.0 <1.0 % LAB HEMETOLOGY METHOD 10/22/2024 12:22 PM EST [facility] NRBC Absolute 0.00 <0.10 K/mcL LAB HEMETOLOGY METHOD 10/22/2024 12:22 PM EST [facility] Blood Venous blood specimen / Unknown Venipuncture / Unknown 10/22/2024 8:17 AM EST 10/22/2024 11:52 AM EST us Janice Núñez MD LAB BLOOD ORDERABLES Final Resul t [facility] [address] [place] [address], documented in this encounter Visit Diagnoses Diagnosis Chronic obstructive pulmonary disease, unspecified documented in this encounter Care Teams Commercial Reporter Relationship Specialty Start Date End Date Yann Manzanares MD [address] [place] [id number] PCP - General 02/08/24 documented as of this encounter
--- OUTSIDE RECORDS SUMMARY | 2025-02-21 16:22 | XMS_ITS | Data Portability ---
Author Organization [facility], Main Office Address [address], [address] [place] [address] Care Team Providers Care Logistics Solution Manager Name Role Phone [facility] OTHER [phone] Assessment Encounter Date Assessment Date Assessment LastModified by Organization Details LastModified Time 12/17/2024 12/17/2024 [facility] 12/13: Na 136-K 3.8-Bun 13-Cr 0.7-wbc 7.5-hgb 8.4-hct 28.5-plt 510 [email or web address] Not available 12/23/2024 14:46:10 12/25/2024 12/25/2024 Hosp [facility] 12/13: Na 136-K 3.8-Bun 13-Cr 0.7-wbc 7.5-hgb 8.4-hct 28.5-plt 510 [email or web address] Not available 12/26/2024 07:11:06 Plan of Treatment [...] on chronic hypoxemi c respirat ory failure [id number] 644103 Completed 202412/20/2024 Not Available [facility] 09:41:58 Acute exacerba tion of chronic obstruct sophie pulmonar y disease 122283610 Completed 202312/20/2024 Not Available [facility] 5 09:42:00 Fracture of multiple ribs 0859827 Completed 202312/20/2024 Not Available [facility] 5 09:42:01 Acidosis 14857819 Completed 202312/20/2024 Not Available [facility] 5 09:42:02 Acute on chronic hypercap juan respirat ory failure 37986284776 06 Completed 202312/20/2024 Not Available [facility] 5 09:42:03 Acute exacerba tion of chronic obstruct sophie pulmonar y disease 088808402 Completed 202112/20/2024 Not Available [facility] 5 09:42:03 Congesti ve heart failure 64597615 Completed 202312/20/2024 Not Available [facility] 5 09:42:04 Acute on chronic hypoxemi c respirat ory failure 30458563299 382608 Completed 202312/20/2024 Not Available [facility] 5 09:42:06 Muscle weakness 39479212 Completed 202112/20/2024 Not Available [facility] 5 09:42:06 Chronic hypercap juan respirat ory failure 173164413 Completed 202312/20/2024 Not Available [facility] 5 09:42:43 Acute pulmonar y edema 47951098 Completed 202312/20/2024 Not Available [facility] 5 09:42:08 Difficul ty walking 011106698 Completed 202212/20/2024 Not Available [facility] 5 09:42:08 Pneumoni a 338294902 Completed 202312/20/2024 Not Available [facility] 5 09:42:09 Congesti ve heart failure 57453833 Completed 202312/20/2024 Not Available [facility] 5 09:42:10 Intersti tial lung disease 975769756 Completed 202112/20/2024 Not Available [facility] 5 09:42:11 Need for personal care assistan ce [id number] 737978 Completed 202312/20/2024 Not Available [facility] 5 09:42:11 Fall Completed 202212/20/2024 Not Available [facility] 5 09:42:12 Orophary ngeal dysphagi a 03729483 Completed 202112/20/2024 Not Available [facility] 5 09:42:13 Metaboli c encephal opathy 16919028 Completed 202112/20/2024 Not Available [facility] 5 09:42:14 Dyspnea 616796894 Completed 202112/20/2024 Not Available [facility] 5 09:42:14 Anemia 046460376 Active 2024 Not Available [facility] 5 09:42:15 Epilepsy 49676228 Completed 202412/23/2024 BLAS GONZÁLES [address], [place], [address] , [facility] 5 13:43:54 Muscle weakness 32517805 Completed 202312/20/2024 Not Available [facility] 5 09:42:16 Difficul ty walking 073909649 Completed 202312/20/2024 Not Available [facility] 5 09:42:17 Chronic cor pulmonal e 67558084 Completed 202312/20/2024 Not Available [facility] 5 09:42:17 Atopic dermatit is 11253251 Completed 202312/20/2024 Not Available [facility] 5 09:42:18 Acute exacerba tion of chronic obstruct sophie pulmonar y disease 398316528 Completed 202312/20/2024 Not Available [facility] 5 09:42:19 Congesti ve heart failure 87288829 Active 2023 Not Available [facility] 5 09:42:19 Paroxysm al atrial fibrilla tion 212048711 Active 2023 Not Available [facility] 5 09:42:20 Major depressi on, single episode 30681504 Completed 202312/20/2024 Not Available [facility] 5 09:42:45 Posttrau matic stress disorder 27818229 Active 2023 Not Available [facility] 5 09:42:20 Dependen ce on enabling machine or device 818387198 Completed 202312/23/2024 IVAP BLAS GONZÁLES [address] [facility] [address], [place], [address] , [facility] 5 13:43:54 Dependen ce on suppleme ntal oxygen 18004177274 7 Completed 202312/20/2024 Not Available [facility] 5 09:42:37 Pulmonar y emphysem a 74389688 Completed 202312/23/2024 BLAS GONZÁLES [address] [facility], [address], [place], [address] , [facility] 5 13:43:54 Anxiety disorder 769816390 Active 2023 Not Available [facility] 5 09:42:22 Inflamma tory dermatos is 985444610 Completed 202312/20/2024 eczema Not Available [facility] 09:42:23 Unsteady when standing 074174306 Completed 202312/20/2024 Not Available [facility] 09:42:24 Muscle weakness 00772659 Completed 202312/20/2024 Not Available [facility] 09:42:25 Dyspnea 875812998 Completed 202312/20/2024 Not Available [facility] 09:42:25 Difficul ty walking 866382920 Completed 202312/20/2024 Not Available [facility] 09:42:26 Somatic syndrome absent 257445897 Completed 202312/23/2024 JOLEEN BISHOP, TRIPPER [address] [facility], [address], [place], [address] , [facility] 5 13:43:54 Fall Completed 202312/20/2024 Not Available [facility] 09:42:29 Acute on chronic hypoxemi c respirat ory failure 72769075037 218653 Completed 202312/20/2024 Not Available [facility] 09:42:29 Syncope and collapse 312312855 Completed 202312/20/2024 Not Available [facility] 09:42:30 Difficul ty walking 574397402 Completed 202312/20/2024 Not Available [facility] 09:42:31 Pleuriti c pain 3248998 Completed 202212/20/2024 Not Available [facility] 09:42:32 Localize d, primary osteoart hritis of the ankle and/or foot 510006866 Completed 202212/20/2024 Not Available [facility] 5 09:42:33 Pain in left foot 65446286419 9107 Completed 202212/20/2024 Not Available [facility] 09:42:34 Essentia l hyperten lisa 43400682 Completed 202212/23/2024 BLAS GONZÁLES [address] , [address], [place], [address] , [facility] 5 13:43:54 Osteopor osis 35354952 Completed 202212/20/2024 Not Available [facility] 5 09:42:52 Gastroes ophageal reflux disease without esophagi tis 520365774 Completed 202212/23/2024 BLAS GONZÁLES [address] , [address], [place], [address] , [facility] 5 13:43:54 Chronic hypoxemi c respirat ory failure 775265722 Completed 202212/20/2024 Not Available [facility] 5 09:42:36 Senile cataract 57819478 Completed 202212/23/2024 BLAS GONZÁLES [address] , [address], [place], [address] , [facility] 5 13:43:54 Chronic obstruct sophie pulmonar y disease 19924787 Completed 202212/20/2024 BLAS GONZÁLES [address] , [address], [place], [address] , [facility] 5 13:32:43 Disorder of body system 236822113 Completed 202212/20/2024 Not Available [facility] 5 09:42:39 Constipa tion 95971060 Completed 202112/20/2024 Not Available [facility] 5 09:42:40 Abnormal posture 28105734 Completed 202112/20/2024 Not Available [facility] 5 09:42:41 Abnormal posture 06014344 Completed 202112/20/2024 Not Available [facility] 5 09:42:42 Obesity 690101026 Completed 202012/20/2024 Not Available [facility] 5 09:42:44 Dyspnea 620851509 Completed 202012/20/2024 Not Available [facility] 5 09:42:45 Acute on chronic hypercap juan respirat ory failure 53002932091 06 Completed 202012/20/2024 Not Available [facility] 5 09:42:46 Late effect of accident al fall 383441745 Completed 202012/20/2024 Not Available [facility] 5 09:42:47 Unsteady when standing 981262989 Completed 202012/20/2024 Not Available [facility] 5 09:42:48 Syncope and collapse 440037285 Completed 202012/20/2024 Not Available [facility] 5 09:42:50 Acute exacerba tion of chronic obstruct sophie pulmonar y disease 529761982 Completed 202012/20/2024 Not Available [facility] 5 09:42:51 Muscle weakness 56894448 Completed 202012/20/2024 Not Available [facility] 5 09:42:53 Difficul ty walking 117575182 Completed 202012/20/2024 Not Available [facility] 5 09:42:55 Inflamma tory dermatos is 529077940 Completed 202012/20/2024 eczema Not Available [facility] 5 09:42:55 Bronchit is 08346425 Completed 202012/20/2024 Not Available [facility] 5 09:42:56 Chronic obstruct sophie pulmonar y disease 14108544 Active 2022 BALS GONZÁLES [facility], [address], [place], [address] , [facility] 5 13:32:43 Seizure 04204573 Active 2024 BLAS GONZÁLES [address] [place] [address], [address], [place], [address] , [facility] 5 13:33:33 Lung mass 398556538 Active 2024 BLAS GONZÁLES [address] [place] [address], [address], [place], [address] , [facility] 5 14:00:34 Bipolar disorder 09786688 Active 2024 BLAS GONZÁLES [address] [place] [address], [address], [place], [address] , [facility] 5 14:04:18 Gastroes ophageal reflux disease 283529722 Active 2024 BLAS GONZÁLES [facility], [address], [place], [address] , [facility] 5 14:16:13 Chronic obstruct sophei pulmonar y disease 66035672 Completed 202312/20/2024 Not Available [facility] 5 10:29:12 Depressi ve disorder 16983021 Active BLAS Rollins [address] [place] [address], [address], [place], [address] , [facility] 5 10:21:22 Acute exacerba tion of chronic obstruct sophie pulmonar y disease 755822200 Completed 12/20/2024 Not Available [facility] 5 09:41:59 Gastroes ophageal reflux disease 133349865 Completed 12/23/2024 BLAS GONZÁLES [address] [facility], [address], [place], [address] , [place] [facility] 5 14:16:13 Bipolar disorder 77659036 Completed 12/20/2024 BLAS GONZÁLES [address] [facility], [address], [place], [address] , [facility] 5 14:04:18 Insomnia 123252170 Completed 12/20/2024 Not Available [facility] 09:42:54 Tachycar fiordaliza 8097319 Completed 12/23/2024 BLAS GONZÁLES [address] [facility], [address], [place], [address] , [facility] 5 13:43:54 Problem Notes None recorded. Medical Equipment None Reported. Allergies Allergen ID Allergen Name Allergen Category Reaction Reaction Severity Criticality Documentation Date Start Date Code Code System Note Provider Name and Address Organization Details Recorded Time 161 Haldol medicatio n Not available Not available Not available 09/01/2015 16222 9 RxNorm Not Available Not Available Not Available 162 codeine medicatio n Not available Not available Not available 09/01/20152021 2670 RxNorm Restl ess/R jai Not Available Not Available Not Available 163 Substance with sulfonami de structure and antibacte rial mechanism of action (substanc e) medicatio n Not available Not available Not available 09/01/2015 69924 8003 SNOMED Not Available Not Available Not Available 96142 haloperid ol medicatio n Not available Not available Not available 12/20/20242021 5093 RxNorm Palpa tions Not Available Not Available Not Available 43942 fluoxetin e medicatio n Not available Not [...] 103 mm[Hg] 52 mm[Hg] BLAS GONZÁLES [address] [facility], [address], [place], [address], [place] - [facility] 5 14:47:16 Social History Question Answer Notes LastModified by Organizat ion Details LastModified Time Tobacco Smoking Status Current Every Day Smoker Not Available [facility] 09/23/2020 03:13:02 How Many Years Have You Smoked Tobacco? 50 [id number] Information not available 09/23/2020 Sex: Unknown Functional [...] Code Diagnosis Note 363 Tiffany P[facility]rez at [facility] on [address] [place] [address] 09/01/2015 10:08:10 11/04/2015 03:49:10 Acute exacerbation of chronic obstructive pulmonary disease 625845562 J44.1 pt will continue her nebs treatments , Spiriva, prednisone taper, theodur, advair. continue on bipap, start PT/OT Gastroesop hageal reflux disease 005982974 K21.9 continue prilosec Bipolar disorder 3437318 4 F31.9 as pt requested we will increase abilify to 15 mg qd from 10 mg, continue lamictal as ordered which is not a change from [facility]. she can also see [facility] for this diagnosis. Insomnia 655985075 G47.0 0 pt has been on trazodone in the past, not now, will try remeron Tachycardia 9732926 R00. 0 pt was started on atenolol for elevated heart rate. is normal rate now. continue to monitor. [address] Main Office [address], [address] [place] [address] 09/02/2015 17:39:53 10/09/2015 03:48:09 Acute exacerbation of chronic obstructive pulmonary disease 568710448 J44.1 acute on chronic, improving. Unclear why on all her inhalers while she is on oral prednisone and DuoNeb. We will hold all her inhalers until she has stopped her DuoNeb updrafts and her steroids have been tapered off. Tachycardia 7558204 R00. 0 responding to atenolol. Patient feels much improved Bipolar disorder 1504686 4 F31.9 no change her current medication s Chronic ob structive pulmonary disease 30780482 J44.9 chronic history, resume baseline meds once stable [id number] BLAS GONZÁLES [address] [place] [address] 12/17/2024 13:30:48 12/25/2024 16:13:18 Chronic obstructive pulmonary disease 77022694 J44.9 sob not r/t exacerbati onbaseline on supplement al O2 at 3 literscont on albuterol, breo neb tx, prednisone ,per discharge summary voriconazo le was mention in med list, unable to verify if she was started on this by pulmonolog y.f/u with pulmonolog ymonitor resp status.RT eval and tx prncont biPAP at hs Congestive heart failure 51127784 I50.9 cont on Lasix 40mg , kcl 10 megcont on metoprolol monitor weight, resp, edema Paroxysmal atrial fibrillation 903665945 I48.0 cont on eliquis , metoprolol monitor for unexplaine d bruising bleeding Seizure 35817737 R56.9 continue Lamictal 200 mg qd and 300 mg at nightmonit or for activityfo llow labs Anemia 891781184 D64.9 symptomati chgb 8.4GI consulted - recommende d to f/u with GI outpatient started on ferrous sulfate dailycont vit b, vit Dfollow labs Lung mass 909567010 R91. 8 11/02/24 ct scan showed small area of consolidat sophie hypodensit y in the left upper lobe slightly increased compared to 11/24/2023 .need to f/u to r/o malignancy . Depressive disorder 6048 9007 F32.A cont on Vilazodone 40 mgcontinue on mirtazapin ehx of suicidal ideat b ion, monitor moods and behavioral changes Bipolar disorder 5746705 4 F31.9 cont on abilify, theophylli ne Gastroesop hageal reflux disease 908680984 K21.9 cont on protonixmo nitor for GI upsetsx if bleeding Osteoporosis 05177227 M8 1.0 cont. on alendronat e, vit D, omega 3 , calcium Allergic rhinitis 722523 04 J30.9 cont fluticason e and mucinex Constipation 92172817 K5 9.00 cont on miralax, senna, lactulose Asthenia 43980371 R53.1 02 dependent, dyspnea with exertionPT /OT eval and treat [id number] FARHAD DAILEY, D[facility] [address] [place] [place] [address] 12/25/2024 12:54:10 12/27/2024 14:09:06 Anemia 952992270 D64.9 symptomati chgb 8.4GI consulted - recommende d to f/u with GI outpatient started on ferrous sulfate dailycont vit b, vit Dfollow labs outptf/up with pcp Chronic ob structive pulmonary disease 86632172 J44.9 sob not r/t exacerbati onbaseline on supplement al O2 at 3 literscont on albuterol, breo neb tx, prednisone ,per discharge summary voriconazo le was mention in med list, unable to verify if she was started on this by pulmonolog y.f/u with pulmonolog ycont biPAP at Congestive heart failure 25440467 I50.9 cont on Lasix 40mg , kcl 10 megcont on metoprolol monitor weight, resp, edema at homef/up with pcp Paroxysmal atrial fibrillation 272327949 I48.0 cont on eliquis , metoprolol monitor bleeding at homef/up with pcp Seizure 38027102 R56.9 continue Lamictal 200 mg qd and 300 mg at nightmonit or for activity at homef/up with pcp Lung mass 353015724 R91. 8 11/02/24 ct scan showed small area of consolidat sophie hypodensit y in the left upper lobe slightly increased compared to 11/24/2023 .need to f/u to r/o malignancy outptf/up with pcp Depressive disorder 3548 9007 F32.A cont on Vilazodone 40 mgcontinue on mirtazapin ef/up with pcp Bipolar disorder 4685986 4 F31.9 cont on abilify, theophylli mars/up with pcp Gastroesop hageal reflux disease 699158397 K21.9 cont on protonixmo nitor for GI upset outptf/up with pcp Osteoporosis 97444841 M8 1.0 cont. on alendronat e, vit D, omega 3 , calciumf/u p with pcp Allergic rhinitis 749441 04 J30.9 cont fluticason e and mucinexf/u p with pcp Constipation 12467886 K5 9.00 cont on miralax, senna, lactulosef /up with pcp Asthenia 72898841 R53.1 02 dependent, dyspnea with exertionco mpleted PT/OT eval and treatf/up with pcp Health Concerns Section Related Observation LastModified by Organization Detai ls LastModified Time None Recorded Concern Status LastModified by Organization Details LastModified Time None Recorded Advance Directives Directive None Recorded Payers Encounter Date Sequence Insurance Name Policy Number Policy Garcia Covered Member ID Garcia Member ID Guarantor Name 09/01/2015 1 [place] [employer] Lluvia Carleen Lahair [id number] Lluvia Lahair 09/02/2015 1 [place] [employer] Llu[place] Carleen Lahair [id number] Lluvia Lahair 12/17/2024 2 [place] [employer] Lluvia Carleen Lahair [id number] Lluvia Lahair 12/17/2024 1 [place] [employer] Lluvia A Lahair [id number] Lluvia Lahair 12/25/2024 2 [place] [employer] Lluvia Carleen Lahair [id number] Lluvia Lahair 12/25/2024 1 [place] [facility] Lluvia A Lahair [id number] Lluvia Lahair Notes Date Note Type Note Provider Name and Address Organization Details Recorded Time 09/01/2015 text/html HPI patient admitted to [facility] for COPD exacerbation, acute on chronic resp failure, started on Bipap and atenolol for tachycardia? Mellisa Georges, TRIPPER [address] [facility], [address], [place], [address], [facility] [employer] 09/01/2015 10:36:55 09/02/2015 text/html HPI 60-year-old female admitted for respiratory infection with negative chest x-ray, acute exacerbation of COPD, but he by hypoxemia and hypercapnia. She required ICU stay for administration of BiPAP. Chest x-ray did not show acute infiltrate. She was treated however with steroids, updraft and antibiotics. History of bipolar disorder as well is active smoker? Mohsen Dos Santos MD [address] [facility], [address], [place], [address], [facility] 09/02/2015 17:45:59 12/17/2024 text/html This is a 69-year-old female patient seen for Transition of care and re-admission. PMH of chronic hypoxic respiratory failure secondary to COPD, chronic CO2 retention, Afib, anxiety/depression, PTSD,obesity, osteoporosis, lung mass,PNA. She was sent to [facility] for evaluation of worsening shortness of breath; medical workup appeared to be at her baseline with the exception of anemia, baseline she usually around 10, labs showed hgb 8.4. GI was consulted and due to no concerns for a GI bleed, patient is recommended to follow up outpatient for EGD/colonoscopy. Per nursing she has been at her baseline since returning [place], there are no acute concerns. BLAS GONZÁLES [address] [facility], [address], [place], [address], [employer] 12/23/2024 16:38:36 12/25/2024 text/html This is a 69-year-old female patient seen for discharge summary. PMH of chronic hypoxic respiratory failure secondary to COPD, chronic CO2 retention, Afib, anxiety/depression, PTSD, obesity, osteoporosis, lung mass,PNA. She was sent to [facility] for evaluation of worsening shortness of breath; [...] plan on finding her a pcp in [place] where they live. Patient is stable for me home with meds and services. GÉNESIS FERNÁNDEZ [address] [facility], [address], [place], [address], [employer] 12/26/2024 07:14:05 OBGyn Episode No OBEpisode recorded.
--- OUTSIDE RECORDS SUMMARY | 2025-02-21 16:22 | XMS_ITS | Encounter Summary ---
Author Organization [facility] Address [address] [place] [address] Care Team Providers Care Radiology Physician Assistant Name Role Phone Yann Manzanares MD Primary Care Provider Encounter Details Date Type Department Care Team (Late st Contact Info) Description 11/03/2024 Lab Requisition [facility] - Main Lab [address] [facility] [place] [address] Janice Núñez MD [address] [place] [address] Chronic obstructive pulmonary disease, unspecified (CMS/HCC) Social [...] mmol/L LAB CHEMISTRY METHOD 11/05/2024 11:51 AM [facility] Potassium 4.1 3.5 - 5.5 mmol/L LAB CHEMISTRY METHOD 11/05/2024 11:51 AM [facility] Chloride 98 96 - 110 mmol/L LAB CHEMISTRY METHOD 11/05/2024 11:51 AM [facility] CO2 43(HH) 21 - 32 mmol/L LAB CHEMISTRY METHOD 11/05/2024 11:51 AM [facility] Anion Gap 0(L) 3 - 11 LAB CHEMISTRY METHOD 11/05/2024 11:51 AM [facility] Glucose 95 70 - 100 mg/dL LAB CHEMISTRY METHOD 11/05/2024 11:51 AM [facility] BUN 12 5 - 25 mg/dL LAB CHEMISTRY METHOD 11/05/2024 11:51 AM [facility] Creatinine 0.97 0.50 - 1.10 mg/dL LAB CHEMISTRY METHOD 11/05/2024 11:51 AM [facility] eGFR 63 >=60 mL/min/1. 73m2 LAB CHEMISTRY METHOD 11/05/2024 11:51 AM [facility] Comment:Calculation based on the??Chronic Kidney Disease Epidemiology Collaboration (CKD-EPI) equation refit??without adjustment for race. BUN/Creatinine Ratio 12.4 LAB CHEMISTRY METHOD 11/05/2024 11:51 AM [facility] Calcium 9.0 8.5 - 10.5 mg/dL LAB CHEMISTRY METHOD 11/05/2024 11:51 AM [facility] Blood Venous blood specimen / Unknown Venipuncture / Unknown 11/05/2024 8:13 AM EST 11/05/2024 10:37 AM EST us Janice Núñez MD LAB BLOOD ORDERABLES Final Resul t [facility] [address] [place] [address], * (ABNORMAL) Complete blood count (11/05/2024 8:13 AM EST) [facility] WBC 5.7 4.8 - 10.8 K/mcL LAB HEMETOLOGY METHOD 11/05/2024 11:00 AM [facility] RBC 3.70(L) 3.80 - 4.80 M/mcL LAB HEMETOLOGY METHOD 11/05/2024 11:00 AM [facility] Hemoglobin 9.8(L) 11.5 - 16.0 g/dL LAB HEMETOLOGY METHOD 11/05/2024 11:00 AM [facility] Hematocrit 34.3(L) 35.0 - 47.0 % LAB HEMETOLOGY METHOD 11/05/2024 11:00 AM [facility] MCV 93.7 79.0 - 98.0 FL LAB HEMETOLOGY METHOD 11/05/2024 11:00 AM [facility] MCH 26.8(L) 27.0 - 32.0 pcg LAB HEMETOLOGY METHOD 11/05/2024 11:00 AM [facility] MCHC 28.6(L) 32.0 - 37.0 g/dL LAB HEMETOLOGY METHOD 11/05/2024 11:00 AM [facility] RDW 14.5 11.0 - 15.0 % LAB HEMETOLOGY METHOD 11/05/2024 11:00 AM [facility] Platelets 429(H) 130 - 400 K/mcL LAB HEMETOLOGY METHOD 11/05/2024 11:00 AM [facility] MPV 9.5 7.0 - 11.0 FL LAB HEMETOLOGY METHOD 11/05/2024 11:00 AM [facility] NRBC 0.0 <1.0 % LAB HEMETOLOGY METHOD 11/05/2024 11:00 AM EST [facility] NRBC Absolute 0.00 <0.10 K/mcL LAB HEMETOLOGY METHOD 11/05/2024 11:00 AM EST [facility] Blood Venous blood specimen / Unknown Venipuncture / Unknown 11/05/2024 8:13 AM EST 11/05/2024 10:37 AM EST us Janice Núñez MD LAB BLOOD ORDERABLES Final Resul t [facility] [address] [place] [address], documented in this encounter Visit Diagnoses Diagnosis Chronic obstructive pulmonary disease, unspecified documented in this encounter Care Teams Radiology Physician Assistant Relationship Specialty Start Date End Date Yann Manzanares MD [address] [address] PCP - General 02/08/24 documented as of this encounter
--- OUTSIDE RECORDS SUMMARY | 2025-02-21 16:22 | XMS_ITS | Clinical Summary ---
Author Organization [address] [place] [address] Address [address] [place] [address] Phone Care Team Providers Care Energy Auditor Name Role Phone Yann Manzanares MD Primary Care Provider [phone] Allergies Active Allergy Reactions Criticality Noted Date [...] on CPAP 11/08/2017 Overview (09/12/2024): Life supply/cpap [facility] Polysomnogram Trilogy treatment study. Date 09/06/2019. Wt [...] Encounters Date Type Department Care Team Description 02/08/2025 9:03 AM EDT - 02/08/2025 11:59 PM EDT Hospital Encounter [facility] PET Scan [address] [place] [phone] Other nonspecific abnormal finding of lung field Discharge Disposition: Home or Self Care 12/13/[address] [facility] [address] [phone] Isamar Garcia MA Request For Order(s) ([facility] 09/21/24-11/19/24 Plan Of Care ) 12/13/[address] [facility] 175 [facility] [address] [place] [address] Isamar Garcia MA Request For Order(s) ([facility] Order # [id number]) 12/11/2024 Lab Requisition [facility] - Main Lab [address] [facility] [place] [address] Glenroy Goff MD Chronic obstructive pulmonary disease, unspecified ([facility]) 12/05/2024 Telephone Lung Screening Program - [place] [address] [facility] [address] [place] [phone] Joelle Mccain MA 11/29/2024 Telephone Internal Medicine - [place] [address] [facility] [address] [place] [address] Yann Manzanares MD from Last 3 Months Immunizations Name Administration [...] Comments Depression 10/09/2017 DX:Depression Bipolar I disorder ([facility]) 06/10/2017 DX: Bipolar I disorder ([facility]) Chronic obstructive pulmonar y disease ([facility]) 07/29/2017 DX:Chronic obstructive pulmo nary disease ([facility]) Chronic respiratory failure with hypercapnia 08/02/2017 DX:Chronic respiratory failu re with hypercapnia ([facility]) Dependence on supplemental oxygen 06/15/2017 [...] DTaP,Tdap,and Td Vaccines (1 - Tdap) 1973 RSV Immunization Patients 60+ Years Old (1 - Risk 60-74 years 1-dose series) 2014 Medicare Annual Wellness Visit 10/30/2022 Social Influencers of Health Screening 10/30/2022 Zoster Vaccines (2 of 2) 06/19/2024 04/24/2024 COVID-19 Vaccine ( season) 2024 04/30/2024, 04/24/2024, 04/07/2022, Additional history exists Influenza Vaccine (#1) 2024 , 09/05/2018, 08/24/2015, Additional history exists Falls Risk Assessment 02/08/2025 02/09/2024 Depression Screening 04/16/2025 04/16/2024 Hypertension/CHF/CAD Annual BMP Blood Test 12/11/2025 12/11/2024, 11/20/2024, 11/12/2024, Additional history exists Breast Cancer Screening 03/22/2026 03/22/20, 03/21/2024, 02/16/2023, Additional history exists Cholesterol Screening (Lipid Panel) 02/08/2029 02/09/2024 Colorectal Cancer Screening: Colonoscopy 04/27/2029 04/27/2024 Osteoporosis Screening (Bone Density Screening) 03/22/2034 03/22/2024, 03/21/2024 Hepatitis C Screening Completed 02/09/2024 Pneumococcal Vaccine: 50+ Years Completed 04/30/2024, 04/24/2024, 08/24/2015 HIB Vaccines Aged Out No longer eligi ble based on patient's age to complete this topic HPV Vaccines Aged Out No longer eligi ble based on patient's age to complete this topic Hepatitis A Vaccines Aged Out No long er eligible [...] Procedure Name Priority Date/Time Associated Diagnosis Comments PET CT SKULL TO MID THIGH INITIAL Routine 02/08/2025 11:28 AM EDT Other nonspecific abnormal finding of lung field BASIC METABOLIC PANEL Routine 12/11/2024 6:30 AM EST Chronic obstructive pulmonary disease, unspecified (CMS/HCC) COMPLETE BLOOD COUNT Routine 12/11/2024 6:30 AM EST Chronic obstructive pulmonary disease, unspecified (CMS/HCC) COLONOSCOPY Routine 04/27/2024 DEPRESSION SCREENING Routine 04/16/2024 [facility] SCREENING DIGITAL Routine 03/22/2024 8:50 AM EDT Encounter for screening mammogram for malignant neoplasm of breast [facility] DEXA AXIAL SKELETON Routine 03/22/2024 8:14 AM EDT Encounter for screening for osteoporosis HEPATITIS C SCREENING Routine 02/09/2024 FALLS RISK ASSESSMENT Routine 02/09/2024 LIPID PANEL Routine 02/09/2024 from Last 3 Months or Most Recently Relevant to Health Maintenance Results * PET CT Skull to Mid Thigh Initial (02/08/2025 11:28 AM EDT) Anatomical Region Laterality Modality Body Radiographic Heydi ging 02/20/2025 3:20 AM EDT Impressions 02/20/2025 4:02 AM EDT 1. ??FDG avid left upper lobe masslike nodules; nonspecific. ??This may represent lung malignancy versus benign process. 2. ??No significant FDG avid lymphadenopathy. 3. ??Fracture deformity of the right fifth rib. Please note: The CT was acquired at a low radiation dose settings. ??The images are of nondiagnostic quality and used solely for purposes of attenuation correction and slice localization for the PET scan. ??If a diagnostic CT study is desired it must be ordered separately. -------- FINAL REPORT -------- Dictated By: Ekaterina Beck Dictated Date: 02/20/2025 03:20 ET Assigned Physician: Ekaterina Beck Reviewed and Electronically Signed By: Ekaterina Beck Signed Date: 02/20/2025 04:02 ET Workstation ID: [id number] Transcribed By: Self Edit Transcribed Date: 02/20/2025 03:20 ET Narrative 02/20/2025 4:02 AM EDT INDICATION: Enlarging masslike density left upper lobe. TECHNIQUE: FDG PET-CT imaging was performed from the skull bases through the thighs in a single acquisition with data set reconstructed in axial, coronal, and sagittal planes at the computer workstation with fused data from both the PET imaging study and attenuation correction CT. The CT portion of the examination was done strictly for attenuation correction and is not a true diagnostic CT examination. DLP: ??1193 mGy-cm Radiopharmaceutical: 11.2 mCi of F-18 FDG IV. Blood glucose: 103 mg/dl. COMPARISON: Outside chest CT dated December 2024 and October 2023 FINDINGS: HEAD AND NECK: No abnormal FDG activity. THORAX: Left upper lobe masslike nodules SUV Max 8.1. ??New thickening/nodularity along both major fissures without significant activity SUV max 1.4 on the left and 1.0 on the right. Right lower lobe opacities measuring up to SUV Max 2.0 likely representing atelectasis; overall similar to October 2023. ??8 mm juxtapleural nodule left lower lobe SUV max 1.3. ??Superimposed emphysematous changes with bibasilar atelectasis. Mediastinal lymph nodes including right upper paratracheal SUV max 1.8, right paratracheal SUV max 2.5 and subcarinal SUV max 2.4; not significantly increased from mediastinal blood pool SUV Max 2.9. ??No significant hilar activity. Cardiomegaly with mild coronary artery calcifications. ??Thoracic aortic calcifications. ABDOMEN/PELVIS: No FDG avid abdominal or pelvic lymphadenopathy. ??Nonspecific bowel activity. ??Diverticulosis. MUSCULOSKELETAL: Deformity of the right fifth rib SUV max 2.8 in keeping with stigmata of prior fracture. ??Heterogeneous bone marrow uptake. ??For example L5 vertebral body SUV max 3.9 without specific lesion identified. ??Age indeterminate compression deformities of T11 and L1. ??L2 compression deformity appears similar to prior radiographs from June 2017. Procedure Note Ekaterina Beck MD - 02/20/2025 INDICATION: Enlarging masslike density left upper lobe. TECHNIQUE: FDG PET-CT imaging was performed from the skull bases throughthe thighs in a single acquisition with data set reconstructed in axial,coronal, and sagittal planes at the computer workstation with fused datafrom both the PET imaging study and attenuation correction CT. The CTportion of the examination was done strictly for attenuation correctionand is not a true diagnostic CT examination. DLP: 1193 mGy-cm Radiopharmaceutical: 11.2 mCi of F-18 FDG IV. Blood glucose: 103 mg/dl. COMPARISON: Outside chest CT dated December 2024 and October 2023 FINDINGS: HEAD AND NECK: No abnormal FDG activity. THORAX: Left upper lobe masslike nodules SUV Max 8.1. Newthickening/nodularity along both major fissures without significantactivity SUV max 1.4 on the left and 1.0 on the right. Right lower lobe opacities measuring up to SUV Max 2.0 likely representingatelectasis; overall similar to October 2023. 8 mm juxtapleural noduleleft lower lobe SUV max 1.3. Superimposed emphysematous changes withbibasilar atelectasis. Mediastinal lymph nodes including right upper paratracheal SUV max 1.8,right paratracheal SUV max 2.5 and subcarinal SUV max 2.4; notsignificantly increased from mediastinal blood pool SUV Max 2.9. Nosignificant hilar activity. Cardiomegaly with mild coronary artery calcifications. Thoracic aorticcalcifications. ABDOMEN/PELVIS: No FDG avid abdominal or pelvic lymphadenopathy.Nonspecific bowel activity. Diverticulosis. MUSCULOSKELETAL: Deformity of the right fifth rib SUV max 2.8 in keepingwith stigmata of prior fracture. Heterogeneous bone marrow uptake. Forexample L5 vertebral body SUV max 3.9 without specific lesion identified.Age indeterminate compression deformities of T11 and L1. L2 compressiondeformity appears similar to prior radiographs from June 2017. IMPRESSION: 1. FDG avid left upper lobe masslike nodules; nonspecific. This mayrepresent lung malignancy versus benign process. 2. No significant FDG avid lymphadenopathy. 3. Fracture deformity of the right fifth rib. Please note: The CT was acquired at a low radiation dose settings. The images are ofnondiagnostic quality and used solely for purposes of attenuationcorrection and slice localization for the PET scan. If a diagnostic CTstudy is desired it must be ordered separately. -------- FINAL REPORT -------- Dictated By: Ekaterina Beck Dictated Date: 02/20/2025 03:20 ET Assigned Physician: Ekaterina Beck Reviewed and Electronically Signed By: Ekaterina Beck Signed Date: 02/20/2025 04:02 ET Workstation ID: [id number] Transcribed By: Self Edit Transcribed Date: 02/20/2025 03:20 ET Caden Acharya MD IM NM PROCEDURES Final Re sult * (ABNORMAL) Complete blood count (12/11/2024 6:30 AM EST) [facility] WBC 7.2 4.8 - 10.8 K/mcL LAB HEMETOLOGY METHOD 12/11/2024 11:11 AM [facility] RBC 3.00(L) 3.80 - 4.80 M/mcL LAB HEMETOLOGY METHOD 12/11/2024 11:11 AM [facility] Hemoglobin 7.5(L) 11.5 - 16.0 g/dL LAB HEMETOLOGY METHOD 12/11/2024 11:11 AM [facility] Hematocrit 26.9(L) 35.0 - 47.0 % LAB HEMETOLOGY METHOD 12/11/2024 11:11 AM [facility] MCV 89.4 79.0 - 98.0 FL LAB HEMETOLOGY METHOD 12/11/2024 11:11 AM [facility] MCH 24.9(L) 27.0 - 32.0 pcg LAB HEMETOLOGY METHOD 12/11/2024 11:11 AM [facility] MCHC 27.9(L) 32.0 - 37.0 g/dL LAB HEMETOLOGY METHOD 12/11/2024 11:11 AM [facility] RDW 15.7(H) 11.0 - 15.0 % LAB HEMETOLOGY METHOD 12/11/2024 11:11 AM [facility] Platelets 399 130 - 400 K/mcL LAB HEMETOLOGY METHOD 12/11/2024 11:11 AM EST [facility] MPV 10.0 7.0 - 11.0 FL LAB HEMETOLOGY METHOD 12/11/2024 11:11 AM EST [facility] NRBC 0.0 <1.0 % LAB HEMETOLOGY METHOD 12/11/2024 11:11 AM [facility] NRBC Absolute 0.00 <0.10 K/mcL LAB HEMETOLOGY METHOD 12/11/2024 11:11 AM [facility] Blood Venous blood specimen / Unknown Venipuncture / Unknown 12/11/2024 6:30 AM EST 12/11/2024 9:22 AM EST us Glenroy Goff MD LAB BLOOD ORDERABLES Final Resul t [facility] [address] [place] [address], * (ABNORMAL) Basic metabolic panel (12/11/2024 6:30 AM EST) Sodium 131(L) 133 - 145 mmol/L LAB CHEMISTRY METHOD 12/11/2024 11:11 AM [facility] Potassium 4.1 3.5 - 5.5 mmol/L LAB CHEMISTRY METHOD 12/11/2024 11:11 AM [facility] Chloride 84(L) 96 - 110 mmol/L LAB CHEMISTRY METHOD 12/11/2024 11:11 AM [facility] CO2 43(HH) 21 - 32 mmol/L LAB CHEMISTRY METHOD 12/11/2024 11:11 AM [facility] Anion Gap 4 3 - 11 LAB CHEMISTRY METHOD 12/11/2024 11:11 AM [facility] Glucose 89 70 - 100 mg/dL LAB CHEMISTRY METHOD 12/11/2024 11:11 AM [facility] BUN 17 5 - 25 mg/dL LAB CHEMISTRY METHOD 12/11/2024 11:11 AM EST [facility] Creatinine 0.83 0.50 - 1.10 mg/dL LAB CHEMISTRY METHOD 12/11/2024 11:11 AM EST [facility] eGFR 76 >=60 mL/min/1. 73m2 LAB CHEMISTRY METHOD 12/11/2024 11:11 AM [facility] Comment:Calculation based on the??Chronic Kidney Disease Epidemiology Collaboration (CKD-EPI) equation refit??without adjustment for race. BUN/Creatinine Ratio 20.5 LAB CHEMISTRY METHOD 12/11/2024 11:11 AM [facility] Calcium 8.6 8.5 - 10.5 mg/dL LAB CHEMISTRY METHOD 12/11/2024 11:11 AM [facility] Blood Venous blood specimen / Unknown Venipuncture / Unknown 12/11/2024 6:30 AM EST 12/11/2024 9:22 AM EST Glenroy Goff MD LAB BLOOD ORDERABLES Final Resul t [facility] [address] [place] [address], * Colonoscopy (04/27/2024) Colonoscopy No Interpretation , Abstracted Anatomical Region Laterality Modality Other Historical Provider HEALTH MAINTENANCE Final Result * Depression Screening (04/16/2024) Depression Screening Abstracted Historical Provider HEALTH MAINTENANCE Final Result * LUIS ARMANDO SCREENING DIGITAL (03/22/2024 8:50 AM EDT) Anatomical Region Laterality Modality Mammography 03/21/2024 3:07 PM EDT Narrative 03/22/2024 8:50 AM EDT [facility] Diagnostic Imaging Department [address] [place] [address] Patient: ??DENISA CARTAGENA ?/Age/Sex: 1955 - 68 - F Unit#: ??[id number] ? Location/Status: ??SPDIMAM/REG CLI ? Mnemonic/Ordering Site: ??DIGSC/SPMAM Ordering Physician: ??YANN MANZANARES Luis Armando Screening Digital - 03/21/24 - Report Status:Signed EXAM: Luis Armando Screening Digital EXAM DATE AND TIME: 03/21/2024 3:49 PM HISTORY: ??Screening. Left breast biopsy in 2016, pathology benign. COMPARISON: ??02/16/23, 09/21/19, 09/18/18, 09/15/17 TECHNIQUE: Bilateral digital breast tomosynthesis was performed in the CC and MLO projections. Computer aided detection with [employer] 3D 3.1 was employed. TISSUE DENSITY: b. [...] Procedure Note Erica Treadwell MD - 07/16/2024 [facility] Diagnostic Imaging Department [address] [place] [address] Patient: DAXDENISA D.O.B./Age/Sex: 1955 - 68 - F Unit#: [id number] [facility]emonic/Ordering Site: [facility] Ordering Physician: YANN MANZANARES [facility] Screening Digital - 03/21/24 - Report Status:Signed EXAM: [facility] Screening Digital EXAM DATE AND TIME: 03/21/2024 3:49 PM HISTORY: Screening. Left breast biopsy in 2016, pathology benign. COMPARISON: 02/16/23, 09/21/19, 09/18/18, 09/15/17 TECHNIQUE: Bilateral digital breast tomosynthesis was performed in the CCand MLO projections. Computer aided detection with [employer] 3D 3.1was employed. TISSUE DENSITY: b. There [...] Signed by: ERICA TREADWELL MD Dic Date/Time: 03/22/2449 Sign date/Time: 03/22/2450 Yann Manzanares MD IMG BI PROCEDURES Final Result * LUIS ARMANDO DEXA AXIAL SKELETON (03/22/2024 8:14 AM EDT) Anatomical Region Laterality Modality Mammography 03/21/2024 3:07 PM EDT Narrative 03/22/2024 8:14 AM EDT [facility] Diagnostic Imaging Department [address] [place], [place] [id number] Patient: ??DENISA CARTAGENA ?/Age/Sex: 1955 - Unit#: ??[id number] ? Location/Status: ??SPDIMAM/REG CLI ? Mnemonic/Ordering Site: [...] probability of hip fracture of 7.1%. Code 04940 Dictating Physician: ??MILTON MENDEZ MD Electronically Signed by: ??MILTON MENDEZ MD Dic Date/Time: ??03/22/24812 Sign date/Time: ??03/22/24 0814 Procedure Note Milton Mendez MD - 07/16/2024 [facility] Diagnostic Imaging Department [address] [place] [id number] Patient: DENISA CARTAGENA /Age/Sex: 1955 68 - F Unit#: [id number] Location/Status: SPDIMAM/REG CLI Mnemonic/Ordering Site: [facility]AMDEX[facility]X/SPMAM Ordering Physician: YANN MANZANARES Luis Armando Dexa Axial Skeleton - 03/21/24 - 2 Report Status:Signed HISTORY: The patient is a [...] density of the femurs bilaterally is 0.912 gm/cy6apbpy is 90% of that of young normals [...] probability of hip fracture of 7.1%. Code 74087 Dictating Physician: MILTON MENDEZ MD Electronically Signed by: MILTON MENDEZ MD Dic Date/Time: 03/22/24812 Sign date/Time: 03/22/[address] [facility] Yann Manzanares MD IMG BI PROCEDURES Final Result * Falls Risk Assessment (02/09/2024) [facility] Falls Risk Assessment Abstracted Result [facility] Provider HEALTH MAINTENANCE Final Result * Hepatitis C Screening (02/09/2024) [facility] Hepatitis C Screening Abstracted Result [facility] HEALTH MAINTENANCE Final Result * (ABNORMAL) Lipid panel (02/09/2024) [facility] LDL/HDL Ratio 2 0 - 4 Triglycerides 80 0 - 150 mg/dL Cholesterol 237(A) 0 - 200 mg/dL HDL 103 >=40 mg/dL LDL Cholesterol 118(A) 0 - 100 mg/dL Blood Venous blood specimen / Unknown Result [facility] Provider LAB BLOOD ORDERABLES Iris l Result from Last 3 Months or Most Recently Relevant to Health Maintenance Insurance MEDICARE [place] - [place] Advance Directives Documents on File Type Date Recorded Patient Corral Boss Expl anation Health Care Decision (hx) 04/27/2024 [...] (hx) 12/23/2015 AD VERA DIRECTIVE Care Teams Energy Auditor Relationship Specialty Start Date End Date Yann Manzanares MD [address] [place] [id number] PCP - General 02/08/24
--- OUTSIDE RECORDS SUMMARY | 2025-02-21 16:22 | XMS_ITS | Data Portability ---
Author Organization MD - [facility], Allergy Address [address] [place] [address] Care Team Providers Care Carbide Tool Maker Name Role Phone BRADLEY LICHAMarcos Primary Care [...] for this as well as list of MD health providers and a copy of today's audiogram. [email or web address] Not available 01/15/2025 11:55:07 01/15/2025 01/15/2025 Potential BiCros candidate - refer to provider [email or web address] Not available 01/15/2025 11:26:15 Plan of Treatment [...] Sensorine ural hearing loss of bilateral ears [id number] Active 2016 Sensorine ural hearing loss, bilateral ; Note: Date Diagnosed : 01/27/2017 10:56 AM (H90.3) Not Available [facility] 4 03:15:55 Bilateral diffuse otitis externa [id number] 22039 Active 2019 Diffuse otitis externa, bilateral ; Note: Date Diagnosed : 02/08/2020 12:16 PM (H60.313) Not Available [facility] 4 03:15:55 Dizziness and giddiness [id number] Active 2016 Dizziness and giddiness ; Note: Date Diagnosed : 01/27/2017 11:15 AM (R42) Not Available [facility] 4 03:15:55 Posterior rhinorrhe a 18473159 Active 2019 Postnasal drip; Note: Date Diagnosed : 02/08/2020 12:53 PM (R09.82) Not Available [facility] 4 03:15:56 Problem Notes None recorded. Procedures Surgical History Date Name Laterality Status Provider Name and Address Organization Details Recorded Time 01/15/2025 Comp Audio with Tymps (93165 & 45846) completed DEL KOO, [address],[place] [address], [place], [address], [facility] - [facility] 01/15/2025 11:26:17 Imaging Results Imaging Date Name Status LastModified by Organiz ation Details LastModified Time 01/15/2025 audiogram completed BARCODE Information no t available 01/15/2025 15:18:29 Procedure Notes None recorded. Medical Equipment None Reported. Allergies Allergen ID Allergen Name Allergen Category Reaction Reaction Severity Criticality Documentation Date Start Date Code Code System Note Provider Name and Address Organization Details Recorded Time 935124 haloperid ol lactate medicatio n other Not available Not available 04/10/2024 21804 3 RxNorm React ion: unkno wn, unspe cifie d;; Not Available [facility] 4 01:14:03 629509 codeine sulfate medicatio n other Not available Not available 04/10/2024 93515 RxNorm React ion: unkno wn, unspe cifie d;; Not Available [facility] 4 01:14:04 578095 Substance with sulfonami de structure and antibacte rial mechanism of action (substanc e) medicatio n other Not available Not available 04/10/2024 36012 8003 SNOMED React ion: unkno wn, unspe cifie d;; Not Available [facility] 4 01:14:05 Medications Name Sig [...] nebulizati on 2016 active Medicatio n ID: [id number] Br and Name: albuterol sulfate S end Method: E-Prescri bed Subs Allowed: subs OK Medica tionGener icName: albuterol sulfate Not Available Not Available Not Available Colace 100 mg capsule 2016 active Medicatio n ID: [id number] Br and Name: Colace Se nd Method: [...] release,12 hr 2016 active Medicatio n ID: [id number] Du ration Value: 30 Brand Name: theophyll [...] by mouth 2016 active Medicatio n ID: [id number] Du ration Value: 30 Brand Name: Claritin Send Method: E-Prescri bed Subs Allowed: subs OK Medica tionGener icName: Claritin Not Available Not Available Not Available Artificial Tears (dextran 70-hyprome llose) eye drops 2016 active Medicatio n ID: [id number] Br and Name: Artificia l Tears(dex [id number] ) Send Method: E-Prescri bed Subs Allowed: subs OK Medica tionGener icName: Artificia l Tears(dex [id number] ) Not Available Not Available Not Available [...] mg tablet 2016 active Medicatio n ID: [id number] Du ration Value: 30 Brand Name: atenolol [...] magnesium) tablet 2016 active Medicatio n ID: [id number] Du ration Value: 30 Brand Name: magnesium oxide Sen d Method: E-Prescri bed Subs Allowed: subs OK Specia l Instructi on: TK 1 T PO QD Medica tionGener icName: magnesium oxide Not Available Not Available Not Available lorazepam 0.5 mg tablet 2016 active Medicatio n ID: [id number] Du ration Value: 30 Brand Name: lorazepam Send Method: E-Prescri bed Subs Allowed: subs OK Specia l Instructi on: TK 1 T PO QHS PRF SLEEP Med icationGe nericName : lorazepam Not Available Not Available Not Available morphine 10 mg/mL intravenou s solution 2016 active Medicatio n ID: [id number] Br and Name: morphine Send Method: E-Prescri bed Subs Allowed: subs OK Medica tionGener icName: morphine Not Available Not Available Not Available pantoprazo le 40 mg tablet,del ayed release TAKE 1 TABLET BY MOUTH EVERY DAY IN THE MORNING active Not Available Not Available No t Available Advair Diskus 250 mcg-50 mcg/dose powder for inhalation 2016 active Medicatio n ID: [id number] Br and Name: Advair Diskus Se nd Method: E-Prescri bed Subs Allowed: subs OK Medica tionGener icName: Advair Diskus Not Available Not Available Not Available nicotine 21 mg/24 hr daily transderma l patch 2016 active Medicatio n ID: [id number] Du ration Value: 28 Brand Name: nicotine [...] mg tablet 2016 active Medicatio n ID: [id number] Du ration Value: 30 Brand Name: lamotrigi [...] sustained- release 2016 active Medicatio n ID: [id number] Du ration Value: 30 Brand Name: bupropion HCl Send Method: E-Prescri bed Subs Allowed: subs OK Specia l Instructi on: TK 1 T PO QAM Medic ationGene ricName: bupropion HCl Not Available Not Available Not Available aripiprazo le 15 mg tablet 2016 active Medicatio n ID: [id number] Du ration Value: 30 Brand Name: aripipraz [...] inhalation capsules 2016 active Medicatio n ID: [id number] Du ration Value: 30 Brand Name: Spiriva [...] mg tablet 2016 active Medicatio n ID: [id number] Du ration Value: 30 Brand Name: Sabrina [...] SNOMED-CT Code Diagnosis ICD10 Code Diagnosis Note [id number] KALEN MAC MD [facility] [address] [address] 01/15/2025 10:56:41 01/15/2025 11:53:57 Sensorineural hearing loss of bilateral ears [id number] H90.3 [id number] INDIGO JUDGE [facility] [address] [address] 01/15/2025 11:23:44 01/16/2025 07:43:57 Sensorineural hearing loss of bilateral ears [id number] H90.3 Audiologic al evaluation results: 01/15/2025 Right [...] [place]: [employer] Lluvia A Lahair [id number] Lluvia A Lahair 01/15/2025 2 [place]: [facility] Lluvia A Lahair [id number] Lluvia A Lahair 01/15/2025 1 MEDIC[place] B[place] [employer] Lluvia A Lahair [id number] Lluvia A Lahair 01/15/2025 2 [place] Lluvia A Lahair [id number] Lluvia A Lahair Notes Date Note Type Note Provider Name and Address Organization Details Recorded Time 01/15/2025 text/html HT medical clearance, known asymmetrical SNHL >>AD DEL KOO, [address]UD [address] [address], [place], [address], [facility] - [facility] 01/15/2025 11:27:24 01/15/2025 text/html 69 year old florencia mesa presents to the office for hearing evaluation. She currently lives at home with her daughter but had been living in nursing homes and group homes over the past few years. 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 She has been using an over the counter hearing aid in the right ear with poor result. She has known profound hearing loss on the left from a left sudden hearing loss in the past. KALEN MAC MD [address] [place] [address], [place], [address], [facility] - [facility] 01/15/2025 20:55:02 OBGyn Episode No OBEpisode recorded.
--- OUTSIDE RECORDS SUMMARY | 2025-02-21 16:22 | XMS_ITS | Encounter Summary ---
Author Organization [facility] Address [address] [place] [address] Care Team Providers Care Laborer Pie Bakery Name Role Phone Yann Manzanares MD Primary Care Provider [phone] Encounter Details Date Type Department Care Team (Late st Contact Info) Description 10/15/2024 Lab Requisition [facility] - Main Lab [address] [facility] [place] [address] Alley San NP [address] [facility] [place] [address] Chronic obstructive pulmonary disease, unspecified (CMS/HCC) Social [...] mmol/L LAB CHEMISTRY METHOD 10/15/2024 1:16 PM [facility] Potassium 3.8 3.5 - 5.5 mmol/L LAB CHEMISTRY METHOD 10/15/2024 1:16 PM [facility] Chloride 90(L) 96 - 110 mmol/L LAB CHEMISTRY METHOD 10/15/2024 1:16 PM [facility] CO2 40(H) 21 - 32 mmol/L LAB CHEMISTRY METHOD 10/15/2024 1:16 PM [facility] Anion Gap 10 3 - 11 LAB CHEMISTRY METHOD 10/15/2024 1:16 PM [facility] Glucose 81 70 - 100 mg/dL LAB CHEMISTRY METHOD 10/15/2024 1:16 PM [facility] BUN 15 5 - 25 mg/dL LAB CHEMISTRY METHOD 10/15/2024 1:16 PM [facility] Creatinine 1.00 0.50 - 1.10 mg/dL LAB CHEMISTRY METHOD 10/15/2024 1:16 PM [facility] eGFR 61 >=60 mL/min/1. 73m2 LAB CHEMISTRY METHOD 10/15/2024 1:16 PM [facility] Comment:Calculation based on the??Chronic Kidney Disease Epidemiology Collaboration (CKD-EPI) equation refit??without adjustment for race. BUN/Creatinine Ratio 15.0 LAB CHEMISTRY METHOD 10/15/2024 1:16 PM [facility] Calcium 9.6 8.5 - 10.5 mg/dL LAB CHEMISTRY METHOD 10/15/2024 1:16 PM [facility] Blood Venous blood specimen / Unknown Venipuncture / Unknown 10/15/2024 8:35 AM EST 10/15/2024 11:13 AM EST Alley San NP LAB BLOOD ORDERABLES Final Re sult [facility] [address] [place] [address], [place] [phone] * (ABNORMAL) Complete blood count (10/15/2024 8:35 AM EST) [facility] WBC 8.3 4.8 - 10.8 K/mcL LAB HEMETOLOGY METHOD 10/15/2024 12:[address] [facility] RBC 3.80 3.80 - 4.80 M/mcL LAB HEMETOLOGY METHOD 10/15/2024 12:51 PM [facility] Hemoglobin 10.7(L) 11.5 - 16.0 g/dL LAB HEMETOLOGY METHOD 10/15/2024 12:51 PM [facility] Hematocrit 37.8 35.0 - 47.0 % LAB HEMETOLOGY METHOD 10/15/2024 12:51 PM [facility] MCV 98.4(H) 79.0 - 98.0 FL LAB HEMETOLOGY METHOD 10/15/2024 12:51 PM [facility] MCH 27.9 27.0 - 32.0 pcg LAB HEMETOLOGY METHOD 10/15/2024 12:51 PM [facility] MCHC 28.3(L) 32.0 - 37.0 g/dL LAB HEMETOLOGY METHOD 10/15/2024 12:51 PM [facility] RDW 15.2(H) 11.0 - 15.0 % LAB HEMETOLOGY METHOD 10/15/2024 12:51 PM [facility] Platelets 474(H) 130 - 400 K/mcL LAB HEMETOLOGY METHOD 10/15/2024 12:51 PM [facility] MPV 9.6 7.0 - 11.0 FL LAB HEMETOLOGY METHOD 10/15/2024 12:51 PM [facility] NRBC 0.0 <1.0 % LAB HEMETOLOGY METHOD 10/15/2024 12:51 PM [facility] NRBC Absolute 0.00 <0.10 K/mcL LAB HEMETOLOGY METHOD 10/15/2024 12:[address] [facility] Blood Venous blood specimen / Unknown Venipuncture / Unknown 10/15/2024 8:35 AM EST 10/15/2024 11:13 AM EST Alley San [employer] MANAGER LAB BLOOD ORDERABLES Final Re sult [facility] [address] [place] [address], documented in this encounter Visit Diagnoses Diagnosis Chronic obstructive pulmonary disease, unspecified documented in this encounter Care Teams Laborer Pie Bakery Relationship Specialty Start Date End Date Yann Manzanares MD [address] [address] PCP - General 02/08/24 documented as of this encounter
--- OUTSIDE RECORDS SUMMARY | 2025-02-21 16:22 | XMS_ITS | Clinical Summary ---
Author Organization [facility] Address [address] [place] [address] Care Team Providers Care Manufacturers Agent Name Role Phone Debra Ji MD Primary Care Provider [phone] Allergies Active Allergy Reactions Criticality Noted Date [...] 0 Active zoster vaccine live, PF, (ZOSTAVAX) 03189 UNT/0.65ML injection Inject 0.65 mL under the [...] age to complete this topic Care Teams Manufacturers Agent Relationship Specialty Start Date End Date Debra Ji MD PCP - General Internal Medicine 06/27/17
--- OUTSIDE RECORDS SUMMARY | 2025-02-21 16:22 | XMS_ITS | Encounter Summary ---
Author Organization [facility] Address [address] [place] [address] Care Team Providers Care Abstract Checker Name Role Phone Yann Manzanares MD Primary Care Provider [phone] Encounter Details Date Type Department Care Team (Late st Contact Info) Description 11/20/[address] [facility] - Main Lab [address] [facility] [place] [address] Janice Núñez MD [address] [place] [address] Chronic obstructive pulmonary disease, unspecified (CMS/HCC) Social [...] mmol/L LAB CHEMISTRY METHOD 11/20/2024 10:56 AM [facility] Potassium 4.3 3.5 - 5.5 mmol/L LAB CHEMISTRY METHOD 11/20/2024 10:56 AM [facility] Chloride 87(L) 96 - 110 mmol/L LAB CHEMISTRY METHOD 11/20/2024 10:56 AM [facility] CO2 44(HH) 21 - 32 mmol/L LAB CHEMISTRY METHOD 11/20/2024 10:56 AM [facility] Anion Gap 3 3 - 11 LAB CHEMISTRY METHOD 11/20/2024 10:56 AM [facility] Glucose 83 70 - 100 mg/dL LAB CHEMISTRY METHOD 11/20/2024 10:56 AM [facility] BUN 17 5 - 25 mg/dL LAB CHEMISTRY METHOD 11/20/2024 10:56 AM [facility] Creatinine 0.95 0.50 - 1.10 mg/dL LAB CHEMISTRY METHOD 11/20/2024 10:56 AM [facility] eGFR 65 >=60 mL/min/1. 73m2 LAB CHEMISTRY METHOD 11/20/2024 10:56 AM [facility] Comment:Calculation based on the??Chronic Kidney Disease Epidemiology Collaboration (CKD-EPI) equation refit??without adjustment for race. BUN/Creatinine Ratio 17.9 LAB CHEMISTRY METHOD 11/20/2024 10:56 AM [facility] Calcium 9.2 8.5 - 10.5 mg/dL LAB CHEMISTRY METHOD 11/20/2024 10:56 AM [facility] Blood Venous blood specimen / Unknown Venipuncture / Unknown 11/20/2024 6:24 AM EST 11/20/2024 9:31 AM EST us Janice Núñez MD LAB BLOOD ORDERABLES Final Resul t [facility] [address] [place] [address], * (ABNORMAL) Complete blood count (11/20/2024 6:24 AM EST) [facility] WBC 8.4 4.8 - 10.8 K/mcL LAB HEMETOLOGY METHOD 11/20/2024 10:10 AM [facility] RBC 3.70(L) 3.80 - 4.80 M/mcL LAB HEMETOLOGY METHOD 11/20/2024 10:10 AM [facility] Hemoglobin 9.5(L) 11.5 - 16.0 g/dL LAB HEMETOLOGY METHOD 11/20/2024 10:10 AM [facility] Hematocrit 34.1(L) 35.0 - 47.0 % LAB HEMETOLOGY METHOD 11/20/2024 10:10 AM [facility] MCV 93.4 79.0 - 98.0 FL LAB HEMETOLOGY METHOD 11/20/2024 10:10 AM [facility] MCH 26.0(L) 27.0 - 32.0 pcg LAB HEMETOLOGY METHOD 11/20/2024 10:10 AM [facility] MCHC 27.9(L) 32.0 - 37.0 g/dL LAB HEMETOLOGY METHOD 11/20/2024 10:10 AM [facility] RDW 14.9 11.0 - 15.0 % LAB HEMETOLOGY METHOD 11/20/2024 10:10 AM [facility] Platelets 512(H) 130 - 400 K/mcL LAB HEMETOLOGY METHOD 11/20/2024 10:10 AM [facility] MPV 9.8 7.0 - 11.0 FL LAB HEMETOLOGY METHOD 11/20/2024 10:10 AM [facility] NRBC 0.0 <1.0 % LAB HEMETOLOGY METHOD 11/20/2024 10:10 AM EST [facility] NRBC Absolute 0.00 <0.10 K/mcL LAB HEMETOLOGY METHOD 11/20/2024 10:10 AM EST [facility] Blood Venous blood specimen / Unknown Venipuncture / Unknown 11/20/2024 6:24 AM EST 11/20/2024 9:31 AM EST us Janice Núñez MD LAB BLOOD ORDERABLES Final Resul t [facility] [address] [place] [address], documented in this encounter Visit Diagnoses Diagnosis Chronic obstructive pulmonary disease, unspecified documented in this encounter Care Teams Abstract Checker Relationship Specialty Start Date End Date Yann Manzanares MD [address] [address] PCP - General 02/08/24 documented as of this encounter
--- OUTSIDE RECORDS SUMMARY | 2025-02-21 16:22 | XMS_ITS | Encounter Summary ---
Author Organization [facility] Address [address] [place] [address] Care Team Providers Care Cook Apprentice Name Role Phone Yann Manzanares MD Primary Care Provider [phone] Encounter Details Date Type Department Care Team (Late st Contact Info) Description 11/02/2024 Lab Requisition [facility] - Main Lab [address] [facility] [place] [address] Janice Núñez MD [address] [place] [address] Chronic obstructive pulmonary disease, unspecified (CMS/HCC) Social [...] mmol/L LAB CHEMISTRY METHOD 11/02/2024 11:22 AM [facility] Potassium 4.0 3.5 - 5.5 mmol/L LAB CHEMISTRY METHOD 11/02/2024 11:22 AM [facility] Chloride 93(L) 96 - 110 mmol/L LAB CHEMISTRY METHOD 11/02/2024 11:22 AM [facility] CO2 40(H) 21 - 32 mmol/L LAB CHEMISTRY METHOD 11/02/2024 11:22 AM [facility] Anion Gap 5 3 - 11 LAB CHEMISTRY METHOD 11/02/2024 11:22 AM [facility] Glucose 86 70 - 100 mg/dL LAB CHEMISTRY METHOD 11/02/2024 11:22 AM [facility] BUN 12 5 - 25 mg/dL LAB CHEMISTRY METHOD 11/02/2024 11:22 AM [facility] Creatinine 0.86 0.50 - 1.10 mg/dL LAB CHEMISTRY METHOD 11/02/2024 11:22 AM [facility] eGFR 73 >=60 mL/min/1. 73m2 LAB CHEMISTRY METHOD 11/02/2024 11:22 AM [facility] Comment:Calculation based on the??Chronic Kidney Disease Epidemiology Collaboration (CKD-EPI) equation refit??without adjustment for race. BUN/Creatinine Ratio 14.0 LAB CHEMISTRY METHOD 11/02/2024 11:22 AM [facility] Calcium 8.9 8.5 - 10.5 mg/dL LAB CHEMISTRY METHOD 11/02/2024 11:22 AM [facility] Blood Venous blood specimen / Unknown Venipuncture / Unknown 11/02/2024 6:47 AM EST 11/02/2024 9:35 AM EST us Janice Núñez MD LAB BLOOD ORDERABLES Final Resul t [facility] [address] [place] [address], * (ABNORMAL) Complete blood count (11/02/2024 6:47 AM EST) [facility] WBC 7.4 4.8 - 10.8 K/mcL LAB HEMETOLOGY METHOD 11/02/2024 10:51 AM [facility] RBC 3.60(L) 3.80 - 4.80 M/mcL LAB HEMETOLOGY METHOD 11/02/2024 10:51 AM [facility] Hemoglobin 9.7(L) 11.5 - 16.0 g/dL LAB HEMETOLOGY METHOD 11/02/2024 10:51 AM [facility] Hematocrit 33.4(L) 35.0 - 47.0 % LAB HEMETOLOGY METHOD 11/02/2024 10:51 AM [facility] MCV 93.6 79.0 - 98.0 FL LAB HEMETOLOGY METHOD 11/02/2024 10:51 AM [facility] MCH 27.2 27.0 - 32.0 pcg LAB HEMETOLOGY METHOD 11/02/2024 10:51 AM [facility] MCHC 29.0(L) 32.0 - 37.0 g/dL LAB HEMETOLOGY METHOD 11/02/2024 10:51 AM [facility] RDW 14.6 11.0 - 15.0 % LAB HEMETOLOGY METHOD 11/02/2024 10:51 AM [facility] Platelets 509(H) 130 - 400 K/mcL LAB HEMETOLOGY METHOD 11/02/2024 10:51 AM [facility] MPV 9.7 7.0 - 11.0 FL LAB HEMETOLOGY METHOD 11/02/2024 10:51 AM [facility] NRBC 0.0 <1.0 % LAB HEMETOLOGY METHOD 11/02/2024 10:51 AM EST [facility] NRBC Absolute 0.00 <0.10 K/[facility] LAB HEMETOLOGY METHOD 11/02/2024 10:51 AM EST [facility] Blood Venous blood specimen / Unknown Venipuncture / Unknown 11/02/2024 6:47 AM EST 11/02/2024 9:35 AM EST us Janice Núñez MD LAB BLOOD ORDERABLES Final Resul t [facility] [address] [place] [address], documented in this encounter Visit Diagnoses Diagnosis Chronic obstructive pulmonary disease, unspecified documented in this encounter Care Teams Cook Apprentice Relationship Specialty Start Date End Date Yann Manzanares MD [address] [place] [address] PCP - General 02/08/24 documented as of this encounter
--- OUTSIDE RECORDS SUMMARY | 2025-02-21 16:22 | XMS_ITS | Encounter Summary ---
Author Organization [facility] Address [address] [place] [address] Care Team Providers Care Restaurant Crew Person Name Role Phone Yann Manzanares MD Primary Care Provider [phone] Reason for Referral * Imaging (Routine) - Closed Specialty Diagnoses / Procedures Referred By Daniel valenzuela Referred To Contact Radiology Diagnoses Other nonspecific abnormal finding of lung field Procedures PET CT Skull to Mid Thigh Initial Caden Acharya MD [address] [place] [phone] Phone: tel: [facility] Referral ID Status Reason Start Date Expiration Date Visits Re quested Visits Authorized [id number] Closed 02/07/2025 02/07/2026 1 1 Reason for Visit * Imaging (Routine) - Closed Specialty Diagnoses / Procedures Referred By Daniel valenzuela Referred To Contact Radiology Diagnoses Other nonspecific abnormal finding of lung field Procedures PET CT Skull to Mid Thigh Initial Caden Acharya MD [address] [place] [phone] Phone: tel: [facility] Referral ID Status Reason Start Date Expiration Date Visits Re quested Visits Authorized [id number] Closed 02/07/2025 02/07/2026 1 1 Encounter Details Date Type Department Care Team (Latest Contact Info) Description 02/08/2025 9:03 AM EDT - 02/08/2025 11:59 PM EDT Hospital Encounter [facility] PET Scan [address] [place] [id number] Other nonspecific abnormal finding of lung field Discharge Disposition: Home or Self Care Social History Tobacco Use Types Packs/Day Years [...] on file documented as of this encounter Medications at Time of Discharge acetaminophen (TYLENOL) 500 mg tablet Take 1 tablet (500 mg total) by mouth every 6 (six) hours if needed (pain). 30 tablet 3 10/03/2024 5 albuterol 2.5 mg /3 mL (0.083 %) nebulizer solution Take 3 mL (2.5 mg total) by nebulization every 4 (four) hours if needed. albuterol HFA (PROAIR HFA ; PROVENTIL HFA ; VENTOLIN HFA) 90 mcg/actuation inhaler Inhale 2 puffs by mouth every 4 (four) hours if needed (cough). 17 g 3 10/03/2024 5 alendronate (FOSAMAX) 70 mg tablet Take 1 tablet (70 mg total) by mouth every 7 (seven) days. 03/13/2024 apixaban (Eliquis) 5 mg tablet Take 1 tablet (5 mg total) by mouth 2 (two) times a day. 180 each 1 10/03/2024 ARIPiprazole (ABILIFY) 10 mg tablet Take 1 tablet (10 mg total) by mouth 1 (one) time each day. 03/13/2024 aspirin 81 mg EC tablet Take 1 tablet (81 mg total) by mouth 1 (one) time each day. 08/16/2024 betamethasone, augmented, (DIPROLENE) 0.05 % ointment Apply topically 2 times/day for 3 weeks 07/27/2024 5 betamethasone, augmented, (DIPROLENE-AF) 0.05 % cream Apply topically 12 hrly 03/08/2024 5 bisacodyL (DULCOLAX) 5 mg EC tablet Take 2 tablets by mouth right before your first dose of liquid prep. 04/25/2024 calcium carbonate-vitami n D (Calcium 500 + D) 500 mg-5 mcg (200 unit) per tablet Take 1 tablet by mouth 2 (two) times a day. 08/08/2024 cholecalciferol (VITAMIN D-3) 50 mcg (2,000 unit) capsule Take 1 capsule (2,000 Units total) by mouth 1 (one) time each day in the morning. 08/16/2024 cyclobenzaprine (FLEXERIL) 5 mg tablet Take 1 tablet (5 mg total) by mouth 3 (three) times a day if needed. 06/29/2024 diclofenac (VOLTAREN) 1 % topical gel Apply 1 g topically 3 (three) times a day if needed (pain). 120 g 3 10/03/2024 docusate sodium (COLACE) 100 mg tablet Take 1 tablet (100 mg total) by mouth 1 (one) time each day in the morning. 08/16/2024 esomeprazole (NexIUM) 40 mg packet Take 40 mg by mouth 1 (one) time each day before breakfast. 05/24/2024 fish oil (OMEGA-3) 60-90-500 mg capsule Take 2 capsules (1,000 mg total) by mouth 1 (one) time each day. 60 capsule 11 10/03/2024 5 fish oil (OMEGA-3) 60-90-500 mg capsule Take 2 capsules (1,000 mg total) by mouth 1 (one) time each day. 60 capsule 11 10/21/2024 5 fluocinolone acetonide oiL 0.01 % drops Administer 4 drops into affected ear(s) every other day if needed (other). 07/23/2024 fluticasone furoate-vilanter oL (Breo Ellipta) 200-25 mcg/dose inhaler INHALE 1 PUFF DIRECTED ONCE A DAY 03/19/2024 fluticasone propionate (FLONASE) 50 mcg/actuation nasal spray Administer 1 spray into each nostril 2 (two) times a day. Shake gently. Before first use, prime pump. After use, clean tip and replace cap. 16 g 3 10/03/2024 furosemide (LASIX) 20 mg tablet Take 1 tablet (20 mg total) by mouth 1 (one) time each day if needed (SOB, Weight gain more than 6 lb). 30 tablet 3 10/03/2024 furosemide (LASIX) 40 mg tablet Take 1 tablet (40 mg total) by mouth 1 (one) time each day. 90 each 1 10/03/2024 gabapentin (NEURONTIN) 100 mg capsule Take 1 capsule (100 mg total) by mouth 3 (three) times a day. 08/16/2024 guaiFENesin (MUCINEX) 600 mg 12 hr tablet Take 2 tablets (1,200 mg total) by mouth 2 (two) times a day. 08/08/2024 incontinence pad, liner, disp pad Incontinence Supply Disposable (Disposable Liners) Misc Use 3 times a day as needed for incontinence.= 03/08/2024 lactulose (CHRONULAC) solution Take 30 mL (20 g total) by mouth 1 (one) time each day if needed (constipation). 480 mL 3 10/03/2024 lamoTRIgine (LaMICtal) 150 mg tablet Take 2 tablets (300 mg total) by mouth at bedtime. 08/02/2024 lamoTRIgine (LaMICtal) 200 mg tablet Take 1 tablet (200 mg total) by mouth 1 (one) time each day in the morning. 07/19/2024 metoprolol succinate (TOPROL-XL) 100 mg 24 hr tablet Take 1 tablet (100 mg total) by mouth 1 (one) time each day. Do not crush or chew. 30 each 11 10/03/2024 mineral oil (Mineral Oil Light) topical Apply 4 g topically every other day if needed (itching or dryness). 08/23/2024 mineral oil external liquid 1 mL by Not Applicable route 2 (two) times a day. 08/08/2024 mirtazapine (REMERON) 15 mg tablet Take 1 tablet (15 mg total) by mouth at bedtime. 08/16/2024 montelukast (SINGULAIR) 10 mg tablet Take 1 tablet (10 mg total) by mouth 1 (one) time each day. 08/16/2024 omega-3 acid ethyl esters (LOVAZA) 1 gram capsule Take 1 capsule (1,000 mg total) by mouth 2 (two) times a day. 03/21/2024 pantoprazole (PROTONIX) 40 mg EC tablet Take 1 tablet (40 mg total) by mouth 1 (one) time each day. 30 minutes before breakfast daily 04/18/2024 potassium chloride (KLOR-CON M10) 10 mEq CR tablet Take 1 tablet (10 mEq total) by mouth 1 (one) time each day. Tablet may be swallowed whole (do not crush/chew/suck on) OR broken in half and each half swallowed separately OR dissolved (whole tablet) in ~4 ounces of water (allow ~2 minutes to dissolve, stir well and administer immediately). 90 each 3 10/03/2024 salicylic acid (T/LYNN) 3 % shampoo Apply one drop every 24-48 hours as needed. 03/08/2024 salmeteroL (Serevent Diskus) 50 mcg/dose diskus inhaler Inhale 1 puff by mouth 2 (two) times a day. 06/14/2024 senna (SENOKOT) 8.6 mg tablet Take 1 tablet (8.6 mg total) by mouth 1 (one) time each day if needed for constipation. 90 each 1 10/03/2024 theophylline (THEODUR) 200 mg 12 hr tablet Take 1 tablet (200 mg total) by mouth 2 (two) times a day. umeclidinium (Incruse Ellipta) 62.5 mcg/actuation inhalation Inhale 1 puff by mouth 1 (one) time each day. 03/19/2024 vilazodone (VIIBRYD) 40 mg tablet Take 1 tablet (40 mg total) by mouth 1 (one) time each day in the morning. 03/26/2024 documented as of this encounter Discharge Disposition Disposition Code Departure Means Destination Home or Self Care documented in this encounter Plan of Treatment Not on file documented as of this encounter Procedures Procedure Name Priority Date/Time Associated Diagnosis Comments PET CT SKULL TO MID THIGH INITIAL Routine 02/08/2025 11:28 AM EDT Other nonspecific abnormal finding of lung field documented in this encounter Results * PET CT Skull to Mid [...] Signed Date: 02/20/2025 04:02 ET Workstation ID: [id number] Transcribed By: Self Edit Transcribed Date: 02/20/2025 [...] Date: 02/20/2025 03:20 ET Assigned Physician: Ekaterina eBck Reviewed and Electronically Signed By: Ekaterina Beck Signed Date: 02/20/2025 04:02 ET Workstation ID: [id number] Transcribed By: Self Edit Transcribed Date: 02/20/2025 03:20 ET Caden Acharya MD IMG NM PROCEDURES Final Re sult documented in this encounter Visit Diagnoses Diagnosis Other nonspecific abnormal finding of lung field documented in this encounter Administered Medications Inactive Administered Medications - up to 3 most recent administrations Medication Order MAR Action Action Date Dose Rate Site F-18 FDG pet diag radio-isotope injection 11.2 millicurie 11.2 millicurie, intravenous, Once in imaging, Starting on Tue02/08/25 at 1000, For 1 dose Given 02/08/2025 9:49 AM EDT 11.2 millicuries Left Antecubital documented in this encounter Orders Medications Ordered That David ht Not Have Been Administered Count Last Ordered Date First Ordered Date F-18 FDG pet diag radio-isot ope injection 11.2 millicurie 1 02/08/2025 documented in this encounter Care Teams Restaurant Crew Person Relationship Specialty Start Date End Date Yann Manzanares MD [address] [place] [address] PCP - General 02/08/24 documented as of this encounter
== END 2025-02-21 14:13 | disposition home or self-care (01) ==
LOC: HO.HPS 13:15
PROVIDERS: PCP Student in an Organized Health Care Education/Training Program; Visit Provider Hospitalist
DX: J43.2 Centrilobular emphysema (principal); R91.1 Solitary pulmonary nodule; J96.11 Chronic respiratory failure with hypoxia; J96.12 Chronic respiratory failure with hypercapnia; G47.33 Obstructive sleep apnea (adult) (pediatric)
CPT/HCPCS: 99215; G2211

== ENCOUNTER → 2025-02-21 13:14 | Outpatient (BNVA) | payer MEDICARE, MEDICAID, SELFPAY | PROVIDERS: PCP Student in an Organized Health Care Education/Training Program; Visit Provider Hospitalist | DX: J43.2 Centrilobular emphysema (principal); R91.1 Solitary pulmonary nodule; J96.12 Chronic respiratory failure with hypercapnia; J96.11 Chronic respiratory failure with hypoxia; F51.01 Primary insomnia; G47.33 Obstructive sleep apnea (adult) (pediatric); Z99.89 Dependence on other enabling machines and devices | CPT/HCPCS: 99212 ==

== ENCOUNTER 2025-02-28 10:42 | Outpatient (REF) | payer MEDICARE, MEDICAID, SELFPAY ==
--- OUTSIDE RECORDS SUMMARY | 2025-02-28 11:52 | XMS_ITS | Encounter Summary ---
Author Organization [facility] Address [address] [place] [address] Care Team Providers Care Drain Tiler Name Role Phone Yann Manzanares MD Primary Care Provider Encounter Details Date Type Department Care Team (Late st Contact Info) Description 10/27/2024 Lab Requisition [facility] - Main Lab [address] [facility] [place] [phone] Janice Núñez MD [address] [place] [address] Chronic obstructive pulmonary disease, unspecified (CMS/HCC) Social [...] mmol/L LAB CHEMISTRY METHOD 10/29/2024 2:01 PM [facility] Potassium 3.6 3.5 - 5.5 mmol/L LAB CHEMISTRY METHOD 10/29/2024 2:01 PM [facility] Chloride 91(L) 96 - 110 mmol/L LAB CHEMISTRY METHOD 10/29/2024 2:01 PM [facility] CO2 40(H) 21 - 32 mmol/L LAB CHEMISTRY METHOD 10/29/2024 2:01 PM [facility] Anion Gap 7 3 - 11 LAB CHEMISTRY METHOD 10/29/2024 2:01 PM [facility] Glucose 86 70 - 100 mg/dL LAB CHEMISTRY METHOD 10/29/2024 2:01 PM [facility] BUN 15 5 - 25 mg/dL LAB CHEMISTRY METHOD 10/29/2024 2:01 PM [facility] Creatinine 0.89 0.50 - 1.10 mg/dL LAB CHEMISTRY METHOD 10/29/2024 2:01 PM [facility] eGFR 70 >=60 mL/min/1. 73m2 LAB CHEMISTRY METHOD 10/29/2024 2:01 PM [facility] Comment:Calculation based on the??Chronic Kidney Disease Epidemiology Collaboration (CKD-EPI) equation refit??without adjustment for race. BUN/Creatinine Ratio 16.9 LAB CHEMISTRY METHOD 10/29/2024 2:01 PM [facility] Calcium 9.3 8.5 - 10.5 mg/dL LAB CHEMISTRY METHOD 10/29/2024 2:01 PM [facility] Blood Venous blood specimen / Unknown Venipuncture / Unknown 10/29/2024 8:00 AM EST 10/29/2024 11:30 AM EST Janice Núñez MD LAB BLOOD ORDERABLES Final Resul t [facility] [address] [place] [address], * (ABNORMAL) Complete blood count (10/29/2024 8:00 AM EST) WBC 6.3 4.8 - 10.8 K/mcL LAB HEMETOLOGY METHOD 10/29/2024 12:10 PM [facility] RBC 3.70(L) 3.80 - 4.80 M/mcL LAB HEMETOLOGY METHOD 10/29/2024 12:10 PM EST [facility] Hemoglobin 10.1(L) 11.5 - 16.0 g/dL LAB HEMETOLOGY METHOD 10/29/2024 12:10 PM EST [facility] Hematocrit 35.2 35.0 - 47.0 % LAB HEMETOLOGY METHOD 10/29/2024 12:10 PM EST [facility] MCV 94.1 79.0 - 98.0 FL LAB HEMETOLOGY METHOD 10/29/2024 12:10 PM EST [facility] MCH 27.0 27.0 - 32.0 pcg LAB HEMETOLOGY METHOD 10/29/2024 12:10 PM [facility] MCHC 28.7(L) 32.0 - 37.0 g/dL LAB HEMETOLOGY METHOD 10/29/2024 12:10 PM EST [facility] RDW 14.5 11.0 - 15.0 % LAB HEMETOLOGY METHOD 10/29/2024 12:10 PM [facility] Platelets 504(H) 130 - 400 K/mcL LAB HEMETOLOGY METHOD 10/29/2024 12:10 PM [facility] MPV 9.3 7.0 - 11.0 FL LAB HEMETOLOGY METHOD 10/29/2024 12:10 PM [facility] NRBC 0.0 <1.0 % LAB HEMETOLOGY METHOD 10/29/2024 12:10 PM EST [facility] NRBC Absolute 0.00 <0.10 K/mcL LAB HEMETOLOGY METHOD 10/29/2024 12:10 PM EST [facility] Blood Venous blood specimen / Unknown Venipuncture / Unknown 10/29/2024 8:00 AM EST 10/29/2024 11:30 AM EST us Janice Núñez MD LAB BLOOD ORDERABLES Final Resul t [facility] [address] [place] [address], documented in this encounter Visit Diagnoses Diagnosis Chronic obstructive pulmonary disease, unspecified documented in this encounter Care Teams Drain Tiler Relationship Specialty Start Date End Date Yann Manzanares MD [address] [place] [address] PCP - General 02/08/24 documented as of this encounter
--- OUTSIDE RECORDS SUMMARY | 2025-02-28 11:52 | XMS_ITS | Encounter Summary ---
Author Organization [facility] Address [address] [place] [address] Care Team Providers Care Budget Engineer Name Role Phone Yann Manzanares MD Primary Care Provider [phone] Encounter Details Date Type Department Care Team (Late st Contact Info) Description 10/15/2024 Lab Requisition [facility] - Main Lab [address] [facility] [place] [address] Alley San NP [address] [facility] [address] Chronic obstructive pulmonary disease, unspecified (CMS/HCC) Social [...] mmol/L LAB CHEMISTRY METHOD 10/15/2024 1:16 PM [facility] Potassium 3.8 3.5 - 5.5 mmol/L LAB CHEMISTRY METHOD 10/15/2024 1:16 PM [facility] Chloride 90(L) 96 - 110 mmol/L LAB CHEMISTRY METHOD 10/15/2024 1:16 PM [facility] CO2 40(H) 21 - 32 mmol/L LAB CHEMISTRY METHOD 10/15/2024 1:16 PM [facility] Anion Gap 10 3 - 11 LAB CHEMISTRY METHOD 10/15/2024 1:16 PM [facility] Glucose 81 70 - 100 mg/dL LAB CHEMISTRY METHOD 10/15/2024 1:16 PM [facility] BUN 15 5 - 25 mg/dL LAB CHEMISTRY METHOD 10/15/2024 1:16 PM [facility] Creatinine 1.00 0.50 - 1.10 mg/dL LAB CHEMISTRY METHOD 10/15/2024 1:16 PM [facility] eGFR 61 >=60 mL/min/1. 73m2 LAB CHEMISTRY METHOD 10/15/2024 1:16 PM [facility] Comment:Calculation based on the??Chronic Kidney Disease Epidemiology Collaboration (CKD-EPI) equation refit??without adjustment for race. BUN/Creatinine Ratio 15.0 LAB CHEMISTRY METHOD 10/15/2024 1:16 PM [facility] Calcium 9.6 8.5 - 10.5 mg/dL LAB CHEMISTRY METHOD 10/15/2024 1:16 PM [facility] Blood Venous blood specimen / Unknown Venipuncture / Unknown 10/15/2024 8:35 AM EST 10/15/2024 11:13 AM EST us Alley San NP LAB BLOOD ORDERABLES Final Re sult [facility] [address] [place] [address], * (ABNORMAL) Complete blood count (10/15/2024 8:35 AM EST) [facility] Signature WBC 8.3 4.8 - 10.8 K/mcL LAB HEMETOLOGY METHOD 10/15/2024 12:51 PM EST [facility] RBC 3.80 3.80 - 4.80 M/mcL LAB HEMETOLOGY METHOD 10/15/2024 12:51 PM EST [facility] Hemoglobin 10.7(L) 11.5 - 16.0 g/dL LAB HEMETOLOGY METHOD 10/15/2024 12:51 PM EST [facility] Hematocrit 37.8 35.0 - 47.0 % LAB HEMETOLOGY METHOD 10/15/2024 12:51 PM EST [facility] MCV 98.4(H) 79.0 - 98.0 FL LAB HEMETOLOGY METHOD 10/15/2024 12:51 PM EST [facility] MCH 27.9 27.0 - 32.0 pcg LAB HEMETOLOGY METHOD 10/15/2024 12:51 PM EST [facility] MCHC 28.3(L) 32.0 - 37.0 g/dL LAB HEMETOLOGY METHOD 10/15/2024 12:51 PM EST [facility] RDW 15.2(H) 11.0 - 15.0 % LAB HEMETOLOGY METHOD 10/15/2024 12:51 PM EST [facility] Platelets 474(H) 130 - 400 K/mcL LAB HEMETOLOGY METHOD 10/15/2024 12:51 PM [facility] MPV 9.6 7.0 - 11.0 FL LAB HEMETOLOGY METHOD 10/15/2024 12:51 PM EST [facility] NRBC 0.0 <1.0 % LAB HEMETOLOGY METHOD 10/15/2024 12:51 PM EST [facility] NRBC Absolute 0.00 <0.10 K/mcL LAB HEMETOLOGY METHOD 10/15/2024 12:51 PM EST [facility] Blood Venous blood specimen / Unknown Venipuncture / Unknown 10/15/2024 8:35 AM EST 10/15/2024 11:13 AM EST Alley San FUNDING COORDINATOR LAB BLOOD ORDERABLES Final Re sult [facility] [address] [place] [address], documented in this encounter Visit Diagnoses Diagnosis Chronic obstructive pulmonary disease, unspecified documented in this encounter Care Teams Budget Engineer Relationship Specialty Start Date End Date Yann Manzanares MD [address] [place] [address] PCP - General 02/08/24 documented as of this encounter
--- OUTSIDE RECORDS SUMMARY | 2025-02-28 11:52 | XMS_ITS | Encounter Summary ---
Author Organization [facility] Address [address] [place] [address] Care Team Providers Care Intervention Nurse Name Role Phone Yann Manzanares MD Primary Care Provider [phone] Encounter Details Date Type Department Care Team (Late st Contact Info) Description 12/11/[address] [facility] - Main Lab [address] [facility] [place] [address] Glenroy Goff MD [address] [facility] [address] [place], [phone] Chronic obstructive pulmonary disease, unspecified (CMS/HCC) [...] mmol/L LAB CHEMISTRY METHOD 12/11/2024 11:11 AM [facility] Potassium 4.1 3.5 - 5.5 mmol/L LAB CHEMISTRY METHOD 12/11/2024 11:11 AM [facility] Chloride 84(L) 96 - 110 mmol/L LAB CHEMISTRY METHOD 12/11/2024 11:11 AM [facility] CO2 43(HH) 21 - 32 mmol/L LAB CHEMISTRY METHOD 12/11/2024 11:11 AM [facility] Anion Gap 4 3 - 11 LAB CHEMISTRY METHOD 12/11/2024 11:11 AM [facility] Glucose 89 70 - 100 mg/dL LAB CHEMISTRY METHOD 12/11/2024 11:11 AM [facility] BUN 17 5 - 25 mg/dL LAB CHEMISTRY METHOD 12/11/2024 11:11 AM [facility] Creatinine 0.83 0.50 - 1.10 mg/dL LAB CHEMISTRY METHOD 12/11/2024 11:11 AM [facility] eGFR 76 >=60 mL/min/1. 73m2 LAB CHEMISTRY METHOD 12/11/2024 11:11 AM [facility] Comment:Calculation based on the??Chronic Kidney Disease Epidemiology Collaboration (CKD-EPI) equation refit??without adjustment for race. BUN/Creatinine Ratio 20.5 LAB CHEMISTRY METHOD 12/11/2024 11:11 AM [facility] Calcium 8.6 8.5 - 10.5 mg/dL LAB CHEMISTRY METHOD 12/11/2024 11:11 AM [facility] Blood Venous blood specimen / Unknown Venipuncture / Unknown 12/11/2024 6:30 AM EST 12/11/2024 9:22 AM EST Glenroy Goff MD LAB BLOOD ORDERABLES Final Resul t [facility] [address] [place] [address], * (ABNORMAL) Complete blood count (12/11/2024 6:30 AM EST) WBC 7.2 4.8 - 10.8 K/mcL LAB HEMETOLOGY METHOD 12/11/2024 11:11 AM [facility] RBC 3.00(L) 3.80 - 4.80 M/mcL LAB HEMETOLOGY METHOD 12/11/2024 11:11 AM [facility] Hemoglobin 7.5(L) 11.5 - 16.0 g/dL LAB HEMETOLOGY METHOD 12/11/2024 11:11 AM [facility] Hematocrit 26.9(L) 35.0 - 47.0 % LAB HEMETOLOGY METHOD 12/11/2024 11:11 AM [facility] MCV 89.4 79.0 - 98.0 FL LAB HEMETOLOGY METHOD 12/11/2024 11:11 AM [facility] MCH 24.9(L) 27.0 - 32.0 pcg LAB HEMETOLOGY METHOD 12/11/2024 11:11 AM [facility] MCHC 27.9(L) 32.0 - 37.0 g/dL LAB HEMETOLOGY METHOD 12/11/2024 11:11 AM [facility] RDW 15.7(H) 11.0 - 15.0 % LAB HEMETOLOGY METHOD 12/11/2024 11:11 AM [facility] Platelets 399 130 - 400 K/mcL LAB HEMETOLOGY METHOD 12/11/2024 11:11 AM [facility] MPV 10.0 7.0 - 11.0 FL LAB HEMETOLOGY METHOD 12/11/2024 11:11 AM EST [facility] NRBC 0.0 <1.0 % LAB HEMETOLOGY METHOD 12/11/2024 11:11 AM EST [facility] NRBC Absolute 0.00 <0.10 K/mcL LAB HEMETOLOGY METHOD 12/11/2024 11:11 AM EST [facility] Blood Venous blood specimen / Unknown Venipuncture / Unknown 12/11/2024 6:30 AM EST 12/11/2024 9:22 AM EST us Glenroy Goff MD LAB BLOOD ORDERABLES Final Resul t [facility] [address] [place] [address], documented in this encounter Visit Diagnoses Diagnosis Chronic obstructive pulmonary disease, unspecified documented in this encounter Care Teams Intervention Nurse Relationship Specialty Start Date End Date Yann Manzanares MD [address] [address] PCP - General 02/08/24 documented as of this encounter
--- OUTSIDE RECORDS SUMMARY | 2025-02-28 11:52 | XMS_ITS | Encounter Summary ---
Author Organization [facility] Address [address] [place] [address] Care Team Providers Care Cork Sorter Name Role Phone Yann Manzanares MD Primary Care Provider [phone] Encounter Details Date Type Department Care Team (Late st Contact Info) Description 11/02/[address] [facility] - Main Lab [address] [facility] [place] [phone] Janice Núñez MD [address] [place] [address] Chronic obstructive pulmonary disease, unspecified (CMS/HCC) Social [...] mmol/L LAB CHEMISTRY METHOD 11/02/2024 11:22 AM [facility] Potassium 4.0 3.5 - 5.5 mmol/L LAB CHEMISTRY METHOD 11/02/2024 11:22 AM [facility] Chloride 93(L) 96 - 110 mmol/L LAB CHEMISTRY METHOD 11/02/2024 11:22 AM [facility] CO2 40(H) 21 - 32 mmol/L LAB CHEMISTRY METHOD 11/02/2024 11:22 AM [facility] Anion Gap 5 3 - 11 LAB CHEMISTRY METHOD 11/02/2024 11:22 AM [facility] Glucose 86 70 - 100 mg/dL LAB CHEMISTRY METHOD 11/02/2024 11:22 AM [facility] BUN 12 5 - 25 mg/dL LAB CHEMISTRY METHOD 11/02/2024 11:22 AM [facility] Creatinine 0.86 0.50 - 1.10 mg/dL LAB CHEMISTRY METHOD 11/02/2024 11:22 AM [facility] eGFR 73 >=60 mL/min/1. 73m2 LAB CHEMISTRY METHOD 11/02/2024 11:22 AM [facility] Comment:Calculation based on the??Chronic Kidney Disease Epidemiology Collaboration (CKD-EPI) equation refit??without adjustment for race. BUN/Creatinine Ratio 14.0 LAB CHEMISTRY METHOD 11/02/2024 11:22 AM [facility] Calcium 8.9 8.5 - 10.5 mg/dL LAB CHEMISTRY METHOD 11/02/2024 11:22 AM [facility] Blood Venous blood specimen / Unknown Venipuncture / Unknown 11/02/2024 6:47 AM EST 11/02/2024 9:35 AM EST Janice Núñez MD LAB BLOOD ORDERABLES Final Resul t [facility] [address] [place] [address], * (ABNORMAL) Complete blood count (11/02/2024 6:47 AM EST) WBC 7.4 4.8 - 10.8 K/mcL LAB HEMETOLOGY METHOD 11/02/2024 10:51 AM EST [facility] RBC 3.60(L) 3.80 - 4.80 M/mcL LAB HEMETOLOGY METHOD 11/02/2024 10:51 AM EST [facility] Hemoglobin 9.7(L) 11.5 - 16.0 g/dL LAB HEMETOLOGY METHOD 11/02/2024 10:51 AM EST [facility] Hematocrit 33.4(L) 35.0 - 47.0 % LAB HEMETOLOGY METHOD 11/02/2024 10:51 AM EST [facility] MCV 93.6 79.0 - 98.0 FL LAB HEMETOLOGY METHOD 11/02/2024 10:51 AM EST [facility] MCH 27.2 27.0 - 32.0 pcg LAB HEMETOLOGY METHOD 11/02/2024 10:51 AM EST [facility] MCHC 29.0(L) 32.0 - 37.0 g/dL LAB HEMETOLOGY METHOD 11/02/2024 10:51 AM EST [facility] RDW 14.6 11.0 - 15.0 % LAB HEMETOLOGY METHOD 11/02/2024 10:51 AM EST [facility] Platelets 509(H) 130 - 400 K/mcL LAB HEMETOLOGY METHOD 11/02/2024 10:51 AM [facility] MPV 9.7 7.0 - 11.0 FL LAB HEMETOLOGY METHOD 11/02/2024 10:51 AM EST [facility] NRBC 0.0 <1.0 % LAB HEMETOLOGY METHOD 11/02/2024 10:51 AM EST [facility] NRBC Absolute 0.00 <0.10 K/mcL LAB HEMETOLOGY METHOD 11/02/2024 10:51 AM EST [facility] Blood Venous blood specimen / Unknown Venipuncture / Unknown 11/02/2024 6:47 AM EST 11/02/2024 9:35 AM EST us Janice Núñez MD LAB BLOOD ORDERABLES Final Resul t [facility] [address] [place] [address], documented in this encounter Visit Diagnoses Diagnosis Chronic obstructive pulmonary disease, unspecified documented in this encounter Care Teams Cork Sorter Relationship Specialty Start Date End Date Yann Manzanares MD [address] [place] [id number] PCP - General 02/08/24 documented as of this encounter
--- OUTSIDE RECORDS SUMMARY | 2025-02-28 11:52 | XMS_ITS | Encounter Summary ---
Author Organization [facility] Address [address] [place] [address] Care Team Providers Care Callisthenics Instructor Name Role Phone Yann Manzanares MD Primary Care Provider [phone] Encounter Details Date Type Department Care Team (Late st Contact Info) Description 11/03/2024 Lab Requisition [facility] - Main Lab [address] [facility] [place] [phone] Janice Núñez MD [address] [place] [address] Chronic obstructive pulmonary disease, unspecified (CMS/HCC) Social [...] mmol/L LAB CHEMISTRY METHOD 11/05/2024 11:51 AM [facility] Potassium 4.1 3.5 - 5.5 mmol/L LAB CHEMISTRY METHOD 11/05/2024 11:51 AM [facility] Chloride 98 96 - 110 mmol/L LAB CHEMISTRY METHOD 11/05/2024 11:51 AM [facility] CO2 43(HH) 21 - 32 mmol/L LAB CHEMISTRY METHOD 11/05/2024 11:51 AM [facility] Anion Gap 0(L) 3 - 11 LAB CHEMISTRY METHOD 11/05/2024 11:51 AM [facility] Glucose 95 70 - 100 mg/dL LAB CHEMISTRY METHOD 11/05/2024 11:51 AM [facility] BUN 12 5 - 25 mg/dL LAB CHEMISTRY METHOD 11/05/2024 11:51 AM [facility] Creatinine 0.97 0.50 - 1.10 mg/dL LAB CHEMISTRY METHOD 11/05/2024 11:51 AM [facility] eGFR 63 >=60 mL/min/1. 73m2 LAB CHEMISTRY METHOD 11/05/2024 11:51 AM [facility] Comment:Calculation based on the??Chronic Kidney Disease Epidemiology Collaboration (CKD-EPI) equation refit??without adjustment for race. BUN/Creatinine Ratio 12.4 LAB CHEMISTRY METHOD 11/05/2024 11:51 AM [facility] Calcium 9.0 8.5 - 10.5 mg/dL LAB CHEMISTRY METHOD 11/05/2024 11:51 AM [facility] Blood Venous blood specimen / Unknown Venipuncture / Unknown 11/05/2024 8:13 AM EST 11/05/2024 10:37 AM EST Janice Núñez MD LAB BLOOD ORDERABLES Final Resul t [facility] [address] [place] [address], * (ABNORMAL) Complete blood count (11/05/2024 8:13 AM EST) WBC 5.7 4.8 - 10.8 K/mcL LAB HEMETOLOGY METHOD 11/05/2024 11:00 AM [facility] RBC 3.70(L) 3.80 - 4.80 M/mcL LAB HEMETOLOGY METHOD 11/05/2024 11:00 AM [facility] Hemoglobin 9.8(L) 11.5 - 16.0 g/dL LAB HEMETOLOGY METHOD 11/05/2024 11:00 AM [facility] Hematocrit 34.3(L) 35.0 - 47.0 % LAB HEMETOLOGY METHOD 11/05/2024 11:00 AM [facility] MCV 93.7 79.0 - 98.0 FL LAB HEMETOLOGY METHOD 11/05/2024 11:00 AM [facility] MCH 26.8(L) 27.0 - 32.0 pcg LAB HEMETOLOGY METHOD 11/05/2024 11:00 AM [facility] MCHC 28.6(L) 32.0 - 37.0 g/dL LAB HEMETOLOGY METHOD 11/05/2024 11:00 AM [facility] RDW 14.5 11.0 - 15.0 % LAB HEMETOLOGY METHOD 11/05/2024 11:00 AM [facility] Platelets 429(H) 130 - 400 K/mcL LAB HEMETOLOGY METHOD 11/05/2024 11:00 AM [facility] MPV 9.5 7.0 - 11.0 FL LAB HEMETOLOGY METHOD 11/05/2024 11:00 AM EST [facility] NRBC 0.0 <1.0 % LAB HEMETOLOGY METHOD 11/05/2024 11:00 AM EST [facility] NRBC Absolute 0.00 <0.10 K/mcL LAB HEMETOLOGY METHOD 11/05/2024 11:00 AM EST [facility] Blood Venous blood specimen / Unknown Venipuncture / Unknown 11/05/2024 8:13 AM EST 11/05/2024 10:37 AM EST us Janice Núñez MD LAB BLOOD ORDERABLES Final Resul t [facility] [address] [place] [address], documented in this encounter Visit Diagnoses Diagnosis Chronic obstructive pulmonary disease, unspecified documented in this encounter Care Teams Callisthenics Instructor Relationship Specialty Start Date End Date Yann Manzanares MD [address] [place] [id number] PCP - General 02/08/24 documented as of this encounter
--- OUTSIDE RECORDS SUMMARY | 2025-02-28 11:52 | XMS_ITS | Data Portability ---
Author Organization [facility], Main Office Address [address] [facility], [address] [place] [address] Care Team Providers Care Soils Technician Name Role Phone [facility] OTHER Assessment Encounter Date [...] on chronic hypoxemi c respirat ory failure [id number] Completed 202412/20/2024 Not Available [facility] 09:41:58 Acute exacerba tion of chronic obstruct sophie pulmonar y disease 927873773 Completed 202312/20/2024 Not Available [facility] 5 09:42:00 Fracture of multiple ribs 2511775 Completed 202312/20/2024 Not Available [facility] 5 09:42:01 Acidosis 88904786 Completed 202312/20/2024 Not Available [facility] 5 09:42:02 Acute on chronic hypercap juan respirat ory failure 56264960881 06 Completed 202312/20/2024 Not Available [facility] 5 09:42:03 Acute exacerba tion of chronic obstruct sophie pulmonar y disease 088334212 Completed 202112/20/2024 Not Available [facility] 5 09:42:03 Congesti ve heart failure 46923109 Completed 202312/20/2024 Not Available [facility] 5 09:42:04 Acute on chronic hypoxemi c respirat ory failure 84290779234 119207 Completed 202312/20/2024 Not Available [facility] 5 09:42:06 Muscle weakness 98914349 Completed 202112/20/2024 Not Available [facility] 5 09:42:06 Chronic hypercap juan respirat ory failure 654763359 Completed 202312/20/2024 Not Available [facility] 5 09:42:43 Acute pulmonar y edema 89765156 Completed 202312/20/2024 Not Available [facility] 5 09:42:08 Difficul ty walking 198850704 Completed 202212/20/2024 Not Available [facility] 5 09:42:08 Pneumoni a 886513126 Completed 202312/20/2024 Not Available [facility] 5 09:42:09 Congesti ve heart failure 14626218 Completed 202312/20/2024 Not Available [facility] 5 09:42:10 Intersti tial lung disease 890569668 Completed 202112/20/2024 Not Available [facility] 5 09:42:11 Need for personal care assistan ce [id number] 109632 Completed 202312/20/2024 Not Available [facility] 5 09:42:11 Fall Completed 202212/20/2024 Not Available [facility] 5 09:42:12 Orophary ngeal dysphagi a 57561365 Completed 202112/20/2024 Not Available [facility] 5 09:42:13 Metaboli c encephal opathy 30100100 Completed 202112/20/2024 Not Available [facility] 5 09:42:14 Dyspnea 991401614 Completed 202112/20/2024 Not Available [facility] 5 09:42:14 Anemia 006841738 Active 2024 Not Available [facility] 5 09:42:15 Epilepsy 32787172 Completed 202412/23/2024 BLAS GONZÁLES [address] [facility] [address], [place], [address] , [facility] 5 13:43:54 Muscle weakness 81923242 Completed 202312/20/2024 Not Available [facility] 5 09:42:16 Difficul ty walking 147888992 Completed 202312/20/2024 Not Available [facility] 5 09:42:17 Chronic cor pulmonal e 05786728 Completed 202312/20/2024 Not Available [facility] 5 09:42:17 Atopic dermatit is 80553037 Completed 202312/20/2024 Not Available [facility] 5 09:42:18 Acute exacerba tion of chronic obstruct sophie pulmonar y disease 879361824 Completed 202312/20/2024 Not Available [facility] 5 09:42:19 Congesti ve heart failure 71275544 Active 2023 Not Available [facility] 5 09:42:19 Paroxysm al atrial fibrilla tion 638225450 Active 2023 Not Available [facility] 5 09:42:20 Major depressi on, single episode 19131831 Completed 202312/20/2024 Not Available [facility] 5 09:42:45 Posttrau matic stress disorder 60212038 Active 2023 Not Available [facility] 5 09:42:20 Dependen ce on enabling machine or device 896451397 Completed 202312/23/2024 IVAP BLAS GONZÁLES [address] [facility] [address], [place], [address] , [facility] 5 13:43:54 Dependen ce on suppleme ntal oxygen 01264826523 7 Completed 202312/20/2024 Not Available [facility] 5 09:42:37 Pulmonar y emphysem a 84264703 Completed 202312/23/2024 BLAS GONZÁLES [address] [facility], [address], [place], [address] , [facility] 5 13:43:54 Anxiety disorder 190378211 Active 2023 Not Available [facility] 5 09:42:22 Inflamma tory dermatos is 542391607 Completed 202312/20/2024 eczema Not Available [facility] 09:42:23 Unsteady when standing 637251303 Completed 202312/20/2024 Not Available [facility] 09:42:24 Muscle weakness 22359201 Completed 202312/20/2024 Not Available [facility] 09:42:25 Dyspnea 572030299 Completed 202312/20/2024 Not Available [facility] 09:42:25 Difficul ty walking 335610364 Completed 202312/20/2024 Not Available [facility] 09:42:26 Somatic syndrome absent 564900957 Completed 202312/23/2024 JOLEEN BISHOP, LEGAL CONSULTANT [address] [facility], [address], [place], [address] , [facility] 5 13:43:54 Fall Completed 202312/20/2024 Not Available [facility] 09:42:29 Acute on chronic hypoxemi c respirat ory failure 50167394718 459790 Completed 202312/20/2024 Not Available [facility] 09:42:29 Syncope and collapse 892218778 Completed 202312/20/2024 Not Available [facility] 09:42:30 Difficul ty walking 352491847 Completed 202312/20/2024 Not Available [facility] 09:42:31 Pleuriti c pain 0510332 Completed 202212/20/2024 Not Available [facility] 09:42:32 Localize d, primary osteoart hritis of the ankle and/or foot 928125066 Completed 202212/20/2024 Not Available [facility] 5 09:42:33 Pain in left foot 56191881482 9107 Completed 202212/20/2024 Not Available [facility] 09:42:34 Essentia l hyperten lisa 04523653 Completed 202212/23/2024 BLAS GONZÁLES [address] , [address], [place], [address] , [facility] 5 13:43:54 Osteopor osis 60904841 Completed 202212/20/2024 Not Available [facility] 5 09:42:52 Gastroes ophageal reflux disease without esophagi tis 403628535 Completed 202212/23/2024 BLAS GONZÁLES [address] , [address], [place], [address] , [facility] 5 13:43:54 Chronic hypoxemi c respirat ory failure 549339331 Completed 202212/20/2024 Not Available [facility] 5 09:42:36 Senile cataract 98127433 Completed 202212/23/2024 BLAS GONZÁLES [address] , [address], [place], [address] , [facility] 5 13:43:54 Chronic obstruct sophie pulmonar y disease 09819524 Completed 202212/20/2024 BLAS GONZÁLES [address] , [address], [place], [address] , [facility] 5 13:32:43 Disorder of body system 996006116 Completed 202212/20/2024 Not Available [facility] 5 09:42:39 Constipa tion 62127765 Completed 202112/20/2024 Not Available [facility] 5 09:42:40 Abnormal posture 52258595 Completed 202112/20/2024 Not Available [facility] 5 09:42:41 Abnormal posture 17783012 Completed 202112/20/2024 Not Available [facility] 5 09:42:42 Obesity 968669301 Completed 202012/20/2024 Not Available [facility] 5 09:42:44 Dyspnea 978680726 Completed 202012/20/2024 Not Available [facility] 5 09:42:45 Acute on chronic hypercap juan respirat ory failure 22995177032 06 Completed 202012/20/2024 Not Available [facility] 5 09:42:46 Late effect of accident al fall 351023096 Completed 202012/20/2024 Not Available [facility] 5 09:42:47 Unsteady when standing 153940575 Completed 202012/20/2024 Not Available [facility] 5 09:42:48 Syncope and collapse 692590260 Completed 202012/20/2024 Not Available [facility] 5 09:42:50 Acute exacerba tion of chronic obstruct sophie pulmonar y disease 753929825 Completed 202012/20/2024 Not Available [facility] 5 09:42:51 Muscle weakness 38254865 Completed 202012/20/2024 Not Available [facility] 5 09:42:53 Difficul ty walking 818341730 Completed 202012/20/2024 Not Available [facility] 5 09:42:55 Inflamma tory dermatos is 751171108 Completed 202012/20/2024 eczema Not Available [facility] 5 09:42:55 Bronchit is 00146167 Completed 202012/20/2024 Not Available [facility] 5 09:42:56 Chronic obstruct sophie pulmonar y disease 10153608 Active 2022 BLAS GONZÁLES [facility], [address], [place], [address] , [facility] 5 13:32:43 Seizure 71805402 Active 2024 BLAS GONZÁLES [address] [place] [address], [address], [place], [address] , [facility] 5 13:33:33 Lung mass 041519110 Active 2024 BLAS GONZÁLES [address] [place] [address], [address], [place], [address] , [facility] 5 14:00:34 Bipolar disorder 55302214 Active 2024 BLAS GONZÁLES [address] [place] [address], [address], [place], [address] , [facility] 5 14:04:18 Gastroes ophageal reflux disease 412981201 Active 2024 BLAS GONZÁLES [facility], [address], [place], [address] , [facility] 5 14:16:13 Chronic obstruct sophie pulmonar y disease 15187160 Completed 202312/20/2024 Not Available [facility] 5 10:29:12 Depressi ve disorder 17239837 Active BLAS Rollins [address] [place] [address], [address], [place], [address] , [facility] 5 10:21:22 Acute exacerba tion of chronic obstruct sophie pulmonar y disease 937371346 Completed 12/20/2024 Not Available [facility] 5 09:41:59 Gastroes ophageal reflux disease 933932191 Completed 12/23/2024 BLAS GONZÁLES [address] [facility], [address], [place], [address] , [place] [facility] 5 14:16:13 Bipolar disorder 32437300 Completed 12/20/2024 BLAS GONZÁLES [address] [facility], [address], [place], [address] , [facility] 5 14:04:18 Insomnia 094540899 Completed 12/20/2024 Not Available [facility] 09:42:54 Tachycar fiordaliza 2044836 Completed 12/23/2024 BLAS GONZÁLES [address] [facility], [address], [place], [address] , [facility] 5 13:43:54 Problem Notes None recorded. Medical Equipment None Reported. Allergies Allergen ID Allergen Name Allergen Category Reaction Reaction Severity Criticality Documentation Date Start Date Code Code System Note Provider Name and Address Organization Details Recorded Time 161 Haldol medicatio n Not available Not available Not available 09/01/2015 25300 9 RxNorm Not Available Not Available Not Available 162 codeine medicatio n Not available Not available Not available 09/01/20152021 2670 RxNorm Restl ess/R jai Not Available Not Available Not Available 163 Substance with sulfonami de structure and antibacte rial mechanism of action (substanc e) medicatio n Not available Not available Not available 09/01/2015 74757 8003 SNOMED Not Available Not Available Not Available 63470 haloperid ol medicatio n Not available Not available Not available 12/20/20242021 5093 RxNorm Palpa tions Not Available Not Available Not Available 64467 fluoxetin e medicatio n Not available Not [...] 103 mm[Hg] 52 mm[Hg] BLAS GONZÁLES [address] [facility], [address], [place], [address], [place] - [facility] 5 14:47:16 Social History Question Answer Notes LastModified by Organizat ion Details LastModified Time Tobacco Smoking Status Current Every Day Smoker Not Available [facility] 09/23/2020 03:13:02 How Many Years Have You Smoked Tobacco? 50 [id number] Information not available 09/23/2020 Sex: Unknown Functional [...] Code Diagnosis Note 363 Tiffany P[facility]rez at [facility] on [address] [place] [place] [address] 09/01/2015 10:08:10 11/04/2015 03:49:10 Acute exacerbation of chronic obstructive pulmonary disease 954199309 J44.1 pt will continue her nebs treatments , Spiriva, prednisone taper, theodur, advair. continue on bipap, start PT/OT Gastroesop hageal reflux disease 810027305 K21.9 continue prilosec Bipolar disorder 5920974 4 F31.9 as pt requested we will increase abilify to 15 mg qd from 10 mg, continue lamictal as ordered which is not a change from [facility]. she can also see [facility] for this diagnosis. Insomnia 501137527 G47.0 0 pt has been on trazodone in the past, not now, will try remeron Tachycardia 7405113 R00. 0 pt was started on atenolol for elevated heart rate. is normal rate now. continue to monitor. [address] Main Office [address] [facility], [address] [place] [address] 09/02/2015 17:39:53 10/09/2015 03:48:09 Acute exacerbation of chronic obstructive pulmonary disease 695271809 J44.1 acute on chronic, improving. Unclear why on all her inhalers while she is on oral prednisone and DuoNeb. We will hold all her inhalers until she has stopped her DuoNeb updrafts and her steroids have been tapered off. Tachycardia 0634197 R00. 0 responding to atenolol. Patient feels much improved Bipolar disorder 7775053 4 F31.9 no change her current medication s Chronic ob structive pulmonary disease 38360056 J44.9 chronic history, resume baseline meds once stable [id number] BLAS GONZÁLES [address] [place] [address] 12/17/2024 13:30:48 12/25/2024 16:13:18 Chronic obstructive pulmonary disease 00247445 J44.9 sob not r/t exacerbati onbaseline on supplement al O2 at 3 literscont on albuterol, breo neb tx, prednisone ,per discharge summary voriconazo le was mention in med list, unable to verify if she was started on this by pulmonolog y.f/u with pulmonolog ymonitor resp status.RT eval and tx prncont biPAP at hs Congestive heart failure 57988807 I50.9 cont on Lasix 40mg , kcl 10 megcont on metoprolol monitor weight, resp, edema Paroxysmal atrial fibrillation 237058393 I48.0 cont on eliquis , metoprolol monitor for unexplaine d bruising bleeding Seizure 62495533 R56.9 continue Lamictal 200 mg qd and 300 mg at nightmonit or for activityfo llow labs Anemia 447389161 D64.9 symptomati chgb 8.4GI consulted - recommende d to f/u with GI outpatient started on ferrous sulfate dailycont vit b, vit Dfollow labs Lung mass 382975851 R91. 8 11/02/24 ct scan showed small area of consolidat sophie hypodensit y in the left upper lobe slightly increased compared to 11/24/2023 .need to f/u to r/o malignancy . Depressive disorder 4268 9007 F32.A cont on Vilazodone 40 mgcontinue on mirtazapin ehx of suicidal ideat b ion, monitor moods and behavioral changes Bipolar disorder 5836816 4 F31.9 cont on abilify, theophylli ne Gastroesop hageal reflux disease 413261606 K21.9 cont on protonixmo nitor for GI upsetsx if bleeding Osteoporosis 32102522 M8 1.0 cont. on alendronat e, vit D, omega 3 , calcium Allergic rhinitis 847793 04 J30.9 cont fluticason e and mucinex Constipation 65218140 K5 9.00 cont on miralax, senna, lactulose Asthenia 37812626 R53.1 02 dependent, dyspnea with exertionPT /OT eval and treat [id number] FARHAD DAILEY, [facility] [place] [address] [place] [address] 12/25/2024 12:54:10 12/27/2024 14:09:06 Anemia 287069018 D64.9 symptomati chgb 8.4GI consulted - recommende d to f/u with GI outpatient started on ferrous sulfate dailycont vit b, vit Dfollow labs outptf/up with pcp Chronic ob structive pulmonary disease 30755896 J44.9 sob not r/t exacerbati onbaseline on supplement al O2 at 3 literscont on albuterol, breo neb tx, prednisone ,per discharge summary voriconazo le was mention in med list, unable to verify if she was started on this by pulmonolog y.f/u with pulmonolog ycont biPAP at Congestive heart failure 00748485 I50.9 cont on Lasix 40mg , kcl 10 megcont on metoprolol monitor weight, resp, edema at homef/up with pcp Paroxysmal atrial fibrillation 235313203 I48.0 cont on eliquis , metoprolol monitor bleeding at homef/up with pcp Seizure 28537180 R56.9 continue Lamictal 200 mg qd and 300 mg at nightmonit or for activity at homef/up with pcp Lung mass 826788981 R91. 8 11/02/24 ct scan showed small area of consolidat sophie hypodensit y in the left upper lobe slightly increased compared to 11/24/2023 .need to f/u to r/o malignancy outptf/up with pcp Depressive disorder 3548 9007 F32.A cont on Vilazodone 40 mgcontinue on mirtazapin ef/up with pcp Bipolar disorder 9441636 4 F31.9 cont on abilify, theophylli mars/up with pcp Gastroesop hageal reflux disease 764414862 K21.9 cont on protonixmo nitor for GI upset outptf/up with pcp Osteoporosis 61557152 M8 1.0 cont. on alendronat e, vit D, omega 3 , calciumf/u p with pcp Allergic rhinitis 677409 04 J30.9 cont fluticason e and mucinexf/u p with pcp Constipation 90177345 K5 9.00 cont on miralax, senna, lactulosef /up with pcp Asthenia 51133348 R53.1 02 dependent, dyspnea with exertionco mpleted PT/OT eval and treatf/up with pcp Health Concerns Section Related Observation LastModified by Organization Detai ls LastModified Time None Recorded Concern Status LastModified by Organization Details LastModified Time None Recorded Advance Directives Directive None Recorded Payers Encounter Date Sequence Insurance Name Policy Number Policy Garcia Covered Member ID Garcia Member ID Guarantor Name 09/01/2015 1 [place] Lluvia Carleen Lahair [id number] Lluvia Lahair 09/02/2015 1 [place] Lluvia Carleen Lahair [id number] Lluvia Lahair 12/17/2024 2 [place] Lluvia Carleen Lahair [id number] Lluvia Lahair 12/17/2024 1 [place] [employer] Lluvia A Lahair [id number] Lluvia Lahair 12/25/2024 2 [place] Lluvia Carleen Lahair [id number] Lluvia Lahair 12/25/2024 1 [place] [facility] Lluvia A Lahair [id number] Lluvia Lahair Notes Date Note Type Note Provider Name and Address Organization Details Recorded Time 09/01/2015 text/html HPI patient admitted [place] [facility] for COPD exacerbation, acute on chronic resp failure, started on Bipap and atenolol for tachycardia? Mellisa Georges, LEGAL CONSULTANT [address] [facility], [address], [place], [address], [facility] 09/01/2015 10:36:55 09/02/2015 text/html HPI 60-year-old female admitted for respiratory infection with negative chest x-ray, acute exacerbation of COPD, but he by hypoxemia and hypercapnia. She required ICU stay for administration of BiPAP. Chest x-ray did not show acute infiltrate. She was treated however with steroids, updraft and antibiotics. History of bipolar disorder as well is active smoker? Mohsen Dos Santos MD [address] [facility], [address], [place], [address], [facility] 09/02/2015 17:45:59 12/17/2024 text/html This is a 69-year-old female patient seen for Transition of care and re-admission. PMH of chronic hypoxic respiratory failure secondary to COPD, chronic CO2 retention, Afib, anxiety/depression, PTSD,obesity, osteoporosis, lung mass,PNA. She was sent to [facility] for evaluation of worsening shortness of breath; medical workup appeared to be at her baseline with the exception of anemia, baseline she usually around 10, labs showed hgb 8.4. GI was consulted and due to no concerns for a GI bleed, patient is recommended to follow up outpatient for EGD/colonoscopy. Per nursing she has been at her baseline since returning [place], there are no acute concerns. BLAS GONZÁLES [address] [facility], [address], [place], [address], [facility] 12/23/2024 16:38:36 12/25/2024 text/html This is a 69-year-old female patient seen for discharge summary. PMH of chronic hypoxic respiratory failure secondary to COPD, chronic CO2 retention, Afib, anxiety/depression, PTSD, obesity, osteoporosis, lung mass,PNA. She was sent to [facility] for evaluation of worsening shortness of breath; [...] plan on finding her a pcp in [place] where they live. Patient is stable for ri home with meds and services. GÉNESIS FERNÁNDEZ [address] [facility], [address], [place], [address], [facility] 12/26/2024 07:14:05 OBGyn Episode No OBEpisode recorded.
--- OUTSIDE RECORDS SUMMARY | 2025-02-28 11:52 | XMS_ITS | Encounter Summary ---
Author Organization [facility] Address [address] [place] [address] Care Team Providers Care Senior Engineering Team Leader Name Role Phone Yann Manzanares MD Primary Care Provider [phone] Encounter Details Date Type Department Care Team (Late st Contact Info) Description 10/19/2024 Lab Requisition [facility] - Main Lab [address] [facility] [place] [phone] Janice Núñez MD [address] [place] [address] Chronic obstructive pulmonary disease, unspecified (CMS/HCC) Social [...] mmol/L LAB CHEMISTRY METHOD 10/22/2024 4:26 PM [facility] Potassium 3.8 3.5 - 5.5 mmol/L LAB CHEMISTRY METHOD 10/22/2024 4:26 PM [facility] Chloride 94(L) 96 - 110 mmol/L LAB CHEMISTRY METHOD 10/22/2024 4:26 PM [facility] CO2 41(HH) 21 - 32 mmol/L LAB CHEMISTRY METHOD 10/22/2024 4:26 PM [facility] Anion Gap 3 3 - 11 LAB CHEMISTRY METHOD 10/22/2024 4:26 PM [facility] Glucose 82 70 - 100 mg/dL LAB CHEMISTRY METHOD 10/22/2024 4:26 PM [facility] BUN 12 5 - 25 mg/dL LAB CHEMISTRY METHOD 10/22/2024 4:26 PM [facility] Creatinine 0.94 0.50 - 1.10 mg/dL LAB CHEMISTRY METHOD 10/22/2024 4:26 PM [facility] eGFR 65 >=60 mL/min/1. 73m2 LAB CHEMISTRY METHOD 10/22/2024 4:26 PM [facility] Comment:Calculation based on the??Chronic Kidney Disease Epidemiology Collaboration (CKD-EPI) equation refit??without adjustment for race. BUN/Creatinine Ratio 12.8 LAB CHEMISTRY METHOD 10/22/2024 4:26 PM [facility] Calcium 9.2 8.5 - 10.5 mg/dL LAB CHEMISTRY METHOD 10/22/2024 4:26 PM [facility] Blood Venous blood specimen / Unknown Venipuncture / Unknown 10/22/2024 8:17 AM EST 10/22/2024 11:52 AM EST Janice Núñez MD LAB BLOOD ORDERABLES Final Resul t [facility] [address] [place] [address], * (ABNORMAL) Complete blood count (10/22/2024 8:17 AM EST) WBC 5.5 4.8 - 10.8 K/mcL LAB HEMETOLOGY METHOD 10/22/2024 12:22 PM EST [facility] RBC 3.40(L) 3.80 - 4.80 M/mcL LAB HEMETOLOGY METHOD 10/22/2024 12:22 PM [facility] Hemoglobin 9.4(L) 11.5 - 16.0 g/dL LAB HEMETOLOGY METHOD 10/22/2024 12:22 PM [facility] Hematocrit 32.9(L) 35.0 - 47.0 % LAB HEMETOLOGY METHOD 10/22/2024 12:22 PM EST [facility] MCV 96.8 79.0 - 98.0 FL LAB HEMETOLOGY METHOD 10/22/2024 12:22 PM EST [facility] MCH 27.6 27.0 - 32.0 pcg LAB HEMETOLOGY METHOD 10/22/2024 12:22 PM [facility] MCHC 28.6(L) 32.0 - 37.0 g/dL LAB HEMETOLOGY METHOD 10/22/2024 12:22 PM EST [facility] RDW 15.0 11.0 - 15.0 % LAB HEMETOLOGY METHOD 10/22/2024 12:22 PM EST [facility] Platelets 417(H) 130 - 400 K/mcL LAB HEMETOLOGY METHOD 10/22/2024 12:22 PM [facility] MPV 9.8 7.0 - 11.0 FL LAB HEMETOLOGY METHOD 10/22/2024 12:22 PM EST [facility] NRBC 0.0 <1.0 % LAB HEMETOLOGY METHOD 10/22/2024 12:22 PM EST [facility] NRBC Absolute 0.00 <0.10 K/mcL LAB HEMETOLOGY METHOD 10/22/2024 12:22 PM EST [facility] Blood Venous blood specimen / Unknown Venipuncture / Unknown 10/22/2024 8:17 AM EST 10/22/2024 11:52 AM EST us Janice Núñez MD LAB BLOOD ORDERABLES Final Resul t [facility] [address] [place] [address], documented in this encounter Visit Diagnoses Diagnosis Chronic obstructive pulmonary disease, unspecified documented in this encounter Care Teams Senior Engineering Team Leader Relationship Specialty Start Date End Date Yann Manzanares MD [address] [place] [address] PCP - General 02/08/24 documented as of this encounter
--- OUTSIDE RECORDS SUMMARY | 2025-02-28 11:53 | XMS_ITS | Encounter Summary ---
Author Organization [facility] Address [address] [place] [address] Care Team Providers Care Taper Operator Name Role Phone Yann Manzanares MD Primary Care Provider [phone] Reason for Visit * Imaging (Emergency) - Authorized Specialty Diagnoses / Procedures Referred By Contac t Referred To Contact Cardiology Diagnoses Pulmonary hypertension (CMS/HCC) Procedures Transthoracic echocardiogram (TTE) complete with PRN contrast, bubble, strain, and 3D order panel AR TTE W 2D IMAGE COMPLETE W DOPPLER ECHO & COLOR FLOW DOPPLER ECHO AR MARICRUZ 2D COMPLETE W/CONTRAST OR W & WO CONTRAST WITH DOPPLER Justine Wong MD [address] [place] [address] Phone: tel: fax: [facility] Referral ID Status Reason Start Date Expiration Date V isits Requested Visits Authorized [id number] Authorized 02/26/2025 02/26/2026 1 1 Encounter Details Date Type Department Care Team (Latest Contact Info) Description 02/27/2025 9:00 AM EDT Ancillary Procedure [facility] [address] [place] [address] Pulmonary hypertension (CMS/HCC) Social History Tobacco Use Types Packs/Day [...] on file documented as of this encounter Last Filed Vital Signs Vital Sign Reading Time Taken Comments Blood Pressure 130/70 02/27/2025 9:04 AM EDT Pulse - - Temperature - - Respiratory Rate - - Oxygen Saturation - - Inhaled Oxygen Concentration - - Weight 84.1 kg (185 lb 6.4 oz) 02/27/2025 9:04 A M EDT Height 154.9 cm (5' 1 ) 02/27/2025 9:04 AM EDT Body Mass Index 35.03 02/27/2025 9:04 AM EDT documented in this encounter Plan of Treatment Not on file documented as of this encounter Procedures Procedure Name Priority Date/Time Associated Diagnosis Comments TRANSTHORACIC ECHOCARDIOGRAM (TTE) COMPLETE W/ CONTRAST STAT 02/27/2025 10:00 AM EDT Pulmonary hypertension (CMS/HCC) documented in this encounter Results * (ABNORMAL) TRANSTHORACIC ECHOCARDIOGRAM (TTE) COMPLETE W/ CONTRAST (02/27/2025 10:00 AM EDT) Left Atrium Minor [place] 6.0 cm CV PACS Left Atrium Major [place] 5.7 cm CV PACS LA Area Sys (A2C) 21 cm2 CV PACS LA Area Sys (A4C) 17 cm2 CV PACS LA Volume (BP) 49 mL CV PACS RA Area 15.9 cm2 CV PACS RA 2D Volume 41 mL CV PACS Aortic Sinus Valsalva 2.8 cm CV PACS Ascending Aorta 3.2 cm CV PACS IVSD 1.0(A) 0.6 - 0.9 cm CV PACS LVIDD 4.4 3.8 - 5.2 cm CV PACS LVIDS 2.3 2.2 - 3.5 cm CV PACS LVOT Diameter 2.0 cm CV PACS LVPWD 1.0(A) 0.6 - 0.9 cm CV PACS MV E' Tissue Velocity Lateral 8 cm/s CV PACS MV E' Tissue Velocity Septal 5 cm/s CV PACS LVOT Area 3.1 cm2 CV PACS MV Deceleration [place] 5.1 m/s2 CV PACS E Wave Deceleration Time 204 119 - 242 ms CV PACS MV PHT 60 ms CV PACS MV Peak A Jeb 0.90 m/s CV PACS MV Peak E Jeb 1.05 m/s CV PACS MV Area PHT 3.7 cm2 CV PACS PV Acceleration Time 85 ms CV PACS RV Diastolic Basal Dimension 4.4(A) 2.5 - 4.1 cm CV PACS RV S' 13 cm/s CV PACS TAPSE 19 mm CV PACS TR Peak Velocity 2.48 m/s CV PACS TR Peak Gradient 25 mmHg CV PACS E/E' Ratio Septal 21 CV PACS E/E' Ratio Averaged 17 CV PACS Relative Wall Thickness ratio 0.45 CV PACS FS 48 % CV PACS LV Mass 2D 148 g CV PACS Ascending Aorta Index 1.75 cm/m2 CV PACS RA 2D Volume Index 22 mL/m2 CV PACS LVIDD Index 2.40 cm/m2 CV PACS LVIDS Index 1.26 cm/m2 CV PACS E/A Ratio 1.2 CV PACS E/E' Ratio Lateral 13 CV PACS LA Volume Index (BP) 27 mL/m2 CV PACS LV Mass Index 2D 81 g/m2 CV PACS BSA 1.9 m2 CV PACS Right Ventricular Peak Systolic Pressure 33 mmHg CV PACS Est. RA Pressure 8 mmHg CV PACS Anatomical Region Laterality Modality Ultrasound Narrative 02/27/2025 2:32 PM EDT ?Left ventricle cavity size is normal. ??There is mild, concentric left ventricular hypertrophy. ??There is normal left ventricular regional wall motion. ??Left ventricular systolic function is in the normal range with an ejection fraction of 60-65%. ?Right ventricle cavity is mildly enlarged. Right ventricular systolic function is normal. ?There is no hemodynamically significant valve disease. ?There is evidence of normal pulmonary artery systolic pressure. ?? Diastolic function is indeterminate. Left Ventricle Left ventricle cavity size is normal. There is mild concentric hypertrophy. Systolic function is normal with an ejection fraction of 60-65%. There are no regional LV wall motion abnormalities. Indeterminate diastolic function. Left atrial pressure is inconclusive. Right Ventricle Right ventricle cavity is mildly dilated. Systolic function is normal. Left Atrium Left atrium cavity size is normal. Right Atrium Right atrium cavity is normal. IVC/SVC Inferior vena cava is dilated. RA pressures is estimated to be 8 mmHg (IVC diameter >21 mm and decreases >50% during inspiration). Mitral Valve The leaflets are mildly thickened. There is mild anterior annular calcification. There is more moderate posterior annular calcification. There is trace regurgitation. There is no evidence of mitral valve stenosis. Tricuspid Valve The leaflets exhibit normal excursion. There is trace regurgitation. The RVSP is estimated at 33 mmHg. Aortic Valve The aortic valve is trileaflet. The leaflets are mildly thickened. There is no regurgitation or stenosis. Pulmonic Valve Pulmonic valve structure is normal. There is trace pulmonic valve regurgitation. Ascending Aorta The aorta appears normal in size. Pericardium There is no pericardial effusion. Study Details Overall the study quality was technically difficult. Definity contrast was given to enhance imaging. Study was difficult due to: poor endocardial visualization, patient body habitus and low parasternal window. us Justine Wong MD CV ECHO PROCEDURES Final R esult documented in this encounter Visit Diagnoses Diagnosis Pulmonary hypertension (CMS/HCC) Other chronic pulmonary heart diseases documented in this encounter Administered Medications Inactive Administered Medications - up to 3 most recent administrations Medication Order MAR Action Action Date Dose Rate Site perflutren lipid microsphere (DEFINITY) 1.3 mL in sodium chloride 0.9% 8.7 mL injection 10 mL, intravenous, Administer over 10 Minutes, Once in imaging, Starting on Tue02/27/25 at 1043, For 1 dose Given 02/27/2025 10:44 AM EDT 2 mL documented in this encounter Orders Medications Ordered That David ht Not Have Been Administered Count Last Ordered Date First Ordered Date perflutren lipid microsphere (DEFINITY) 1.3 mL in sodium chloride 0.9% 8.7 mL injection 1 02/27/2025 documented in this encounter Care Teams Taper Operator Relationship Specialty Start Date End Date Yann Manzanares MD [address] [place] [address] PCP - General 02/08/24 documented as of this encounter
--- OUTSIDE RECORDS SUMMARY | 2025-02-28 11:53 | XMS_ITS | Encounter Summary ---
Author Organization Address [address] [place] [address] Care Team Providers Care Medical Staffing Coordinator Name Role Phone Yann Manzanares MD Primary Care Provider [phone] Encounter Details Date Type Department Care Team (Late st Contact Info) Description 11/20/2024 Lab Requisition [facility] - Main Lab [address] [facility] [place] [phone] Janice Núñez MD [address] [place] [address] Chronic obstructive pulmonary disease, unspecified (CMS/HCC) Social [...] mmol/L LAB CHEMISTRY METHOD 11/20/2024 10:[address] [facility] Potassium 4.3 3.5 - 5.5 mmol/L LAB CHEMISTRY METHOD 11/20/2024 10:[address] [facility] Chloride 87(L) 96 - 110 mmol/L LAB CHEMISTRY METHOD 11/20/2024 10:[address] [facility] CO2 44(HH) 21 - 32 mmol/L LAB CHEMISTRY METHOD 11/20/2024 10:[address] [facility] Anion Gap 3 3 - 11 LAB CHEMISTRY METHOD 11/20/2024 10:[address] [facility] Glucose 83 70 - 100 mg/dL LAB CHEMISTRY METHOD 11/20/2024 10:[address] [facility] BUN 17 5 - 25 mg/dL LAB CHEMISTRY METHOD 11/20/2024 10:[address] [facility] Creatinine 0.95 0.50 - 1.10 mg/dL LAB CHEMISTRY METHOD 11/20/2024 10:[address] [facility] eGFR 65 >=60 mL/min/1. 73m2 LAB CHEMISTRY METHOD 11/20/2024 10:[address] [facility] Comment:Calculation based on the??Chronic Kidney Disease Epidemiology Collaboration (CKD-EPI) equation refit??without adjustment for race. BUN/Creatinine Ratio 17.9 LAB CHEMISTRY METHOD 11/20/2024 10:[address] [facility] Calcium 9.2 8.5 - 10.5 mg/dL LAB CHEMISTRY METHOD 11/20/2024 10:[address] [facility] Blood Venous blood specimen / Unknown Venipuncture / Unknown 11/20/2024 6:24 AM EST 11/20/2024 9:31 AM EST Janice Núñez MD LAB BLOOD ORDERABLES Final Resul t [facility] [address] [place] [address], * (ABNORMAL) Complete blood count (11/20/2024 6:24 AM EST) WBC 8.4 4.8 - 10.8 K/mcL LAB HEMETOLOGY METHOD 11/20/2024 10:10 AM EST [facility] RBC 3.70(L) 3.80 - 4.80 M/mcL LAB HEMETOLOGY METHOD 11/20/2024 10:10 AM EST [facility] Hemoglobin 9.5(L) 11.5 - 16.0 g/dL LAB HEMETOLOGY METHOD 11/20/2024 10:[address] [facility] Hematocrit 34.1(L) 35.0 - 47.0 % LAB HEMETOLOGY METHOD 11/20/2024 10:10 AM EST [facility] MCV 93.4 79.0 - 98.0 FL LAB HEMETOLOGY METHOD 11/20/2024 10:[address] [facility] MCH 26.0(L) 27.0 - 32.0 pcg LAB HEMETOLOGY METHOD 11/20/2024 10:[address] [facility] MCHC 27.9(L) 32.0 - 37.0 g/dL LAB HEMETOLOGY METHOD 11/20/2024 10:[address] [facility] RDW 14.9 11.0 - 15.0 % LAB HEMETOLOGY METHOD 11/20/2024 10:[address] [facility] Platelets 512(H) 130 - 400 K/mcL LAB HEMETOLOGY METHOD 11/20/2024 10:[address] [facility] MPV 9.8 7.0 - 11.0 FL LAB HEMETOLOGY METHOD 11/20/2024 10:10 AM EST [facility] NRBC 0.0 <1.0 % LAB HEMETOLOGY METHOD 11/20/2024 10:10 AM EST [facility] NRBC Absolute 0.00 <0.10 K/mcL LAB HEMETOLOGY METHOD 11/20/2024 10:10 AM EST [facility] Blood Venous blood specimen / Unknown Venipuncture / Unknown 11/20/2024 6:24 AM EST 11/20/2024 9:31 AM EST us Janice Núñez MD LAB BLOOD ORDERABLES Final Resul t [facility] [address] [place] [address], documented in this encounter Visit Diagnoses Diagnosis Chronic obstructive pulmonary disease, unspecified documented in this encounter Care Teams Medical Staffing Coordinator Relationship Specialty Start Date End Date Yann Manzanares MD [address] [place] [address] PCP - General 02/08/24 documented as of this encounter
--- OUTSIDE RECORDS SUMMARY | 2025-02-28 11:53 | XMS_ITS | Clinical Summary ---
Author Organization [facility] Address [address] [place] [address] Care Team Providers Care Stove Carriage Operator Name Role Phone Debra Ji MD Primary Care Provider [phone] Allergies Active Allergy Reactions Criticality Noted Date [...] 0 Active zoster vaccine live, PF, (ZOSTAVAX) 28799 UNT/0.65ML injection Inject 0.65 mL under the [...] age to complete this topic Care Teams Stove Carriage Operator Relationship Specialty Start Date End Date Debra Ji MD PCP - General Internal Medicine 06/27/17
--- OUTSIDE RECORDS SUMMARY | 2025-02-28 11:53 | XMS_ITS | Clinical Summary ---
Author Organization 175 [facility] Address [address] [place] [address] Phone Care Team Providers Care Educational Technology Coordinator Name Role Phone Yann Manzanares MD Primary Care Provider [phone] Allergies Active Allergy Reactions Criticality Noted Date [...] 30 tablet 3 4 04/01/20 25 Active Additional Information Patient not taking.Reported on 02/26/2025 furosemide (LASIX) 40 mg tablet Take 1 tablet (40 mg total) by mouth 1 (one) time each day. 90 each 1 4 04/01/20 25 Active fish oil (OMEGA-3) 60-90-500 mg capsule Take 2 capsules (1,000 mg total) by mouth 1 (one) time each day. 60 capsule 11 4 10/03/20 25 Active Additional Information Patient not taking.Reported on 02/26/2025 fluticasone propionate (FLONASE) 50 mcg/actuation nasal spray [...] Do not crush or chew. 30 each 4 10/03/20 25 Active apixaban (Eliquis) 5 mg tablet Take 1 tablet (5 mg total) by mouth 2 (two) times a day. 180 each 4 04/01/20 25 Active albuterol HFA (PROAIR [...] administer immediately). 90 each 3 4 10/03/20 Active diclofenac (VOLTAREN) 1 % topical gel Apply 1 g topically 3 (three) times a day if needed (pain). 120 g 3 4 04/01/20 Active fish oil (OMEGA-3) 60-90-500 mg capsule Take 2 capsules (1,000 mg total) by mouth 1 (one) time each day. 60 capsule 11 4 10/21/20 Active Hospital, Clinic, or Other Facility Administered Medication Ordered Dose Route Frequency Start Date End Date Status perflutren lipid microsphere (DEFINITY) 1.3 mL in sodium chloride 0.9% 8.7 mL injection 10 mL IV Once in imaging 02/27/2025 02/27/2025 End ed Active Problems Problem Noted Date Diagnosed Date Obese 07/26/2019 HTN (hypertension) 07/09/2019 Seasonal allergies 03/20/2019 RITA on CPAP 11/08/2017 Overview (09/12/2024): Life supply/cpap [facility] Polysomnogram Trilogy treatment study. Date [...] Encounters Date Type Department Care Team Description 02/27/2025 9:00 AM EDT Ancillary Procedure [facility] - [facility] [address] [facility] [address] [place] [phone] Pulmonary hypertension ([facility]/HCC) 02/26/2025 10:00 AM EDT Consult Pulmonology - [place] [address] [facility] [address] [place] [phone] Justine Wong MD Lung mass (Primary Dx); Chronic obstructive pulmonary disease, unspecified COPD type ([facility]); Chronic respiratory failure with hypercapnia; RITA on CPAP; Pulmonary hypertension ([facility]); SOB (shortness of breath) 02/08/2025 9:03 AM EDT - 02/08/2025 11:59 PM EDT Hospital Encounter [facility] PET Scan [address] [place] [phone] Other nonspecific abnormal finding of lung field Discharge Disposition: Home or Self Care 12/13/2024 Telephone Internal Medicine - [place] [address] [facility] [address] [place] [phone] Isamar Garcia MA Request For Order(s) ([facility] Cert 09/21/24-11/19/24 Plan Of Care ) 12/13/2024 Telephone Internal Medicine - [place] [address] [facility] [address] [place] [phone] Isamar Garcia MA Request For Order(s) ([facility] Order # [id number]) 12/11/2024 Lab Requisition [facility] - Main Lab [address] [facility] [place] [phone] Glenroy Goff MD Chronic obstructive pulmonary disease, unspecified ([facility]/HCC) 12/05/2024 Telephone Lung Screening Program - [place] [address] [facility] [address] [place] [phone] Joelle Mccain MA from Last 3 Months Immunizations Name Administration [...] COMMENT: hx of tracheostomy for resp failure TONSILLECTOMY HERNIA REPAIR HAND SURGERY Medical History Medical History Date Comments Depression 10/09/2017 DX:Depression Bipolar I disorder ([facility]) 06/10/2017 DX: Bipolar I disorder ([facility]) Chronic obstructive pulmonar y disease ([facility]/HCC) 07/29/2017 DX:Chronic obstructive pulmo nary disease ([facility]) Chronic respiratory failure with hypercapnia 08/02/2017 DX:Chronic respiratory failu re with hypercapnia ([facility]) Dependence on supplemental oxygen 06/15/2017 DX:Dependence on [...] Pressure 130/70 02/27/2025 9:04 AM EDT Pulse 62 02/26/2025 10:17 AM EDT Temperature 36.6 ??C (97.9 ??F) 02/26/2025 1 0:17 AM EDT Respiratory Rate 18 02/26/2025 10:1 7 AM EDT Oxygen Saturation 92% 02/26/2025 10: 17 AM EDT on 3lt o2 Inhaled Oxygen Concentration - - Weight 84.1 kg (185 lb 6.4 oz) 02/27/2025 9:04 A M EDT Height 154.9 cm (5' 1 ) 02/27/2025 9:04 AM EDT Body Mass Index 35.03 02/27/2025 9:04 AM EDT Plan of Treatment Health Maintenance Due Date Last Done Comments DTaP,Tdap,and Td Vaccines (1 - Tdap) 1973 RSV Immunization Adult Patients (1 - Risk 60-74 years 1-dose series) 2014 Medicare Annual Wellness Visit 10/30/2022 Social Influencers of Health Screening 10/30/2022 Zoster Vaccines (2 of 2) 06/19/2024 04/24/2024 COVID-19 Vaccine ( season) 2024 04/30/2024, 04/24/2024, 04/07/2022, Additional history exists Falls Risk Assessment 02/08/2025 02/09/2024 Depression Screening 04/16/2025 04/16/2024 Influenza Vaccine (Season Ended) 2025 08/19/2021, 09/05/2018, 08/24/2015, Additional history exists Hypertension/CHF/CAD Annual BMP Blood Test 12/11/2025 12/11/2024, [...] 02/27/2025 10:00 AM EDT Pulmonary hypertension (CMS/HCC) PET CT SKULL TO MID THIGH INITIAL Routine 02/08/2025 11:28 AM EDT Other nonspecific abnormal finding of lung field EXTERNAL PET REPORT 02/08/[address] REPORT 01/08/2025 BASIC METABOLIC PANEL Routine 12/11/2024 6:30 AM EST Chronic obstructive pulmonary disease, unspecified (CMS/HCC) COMPLETE BLOOD COUNT Routine 12/11/2024 6:30 AM EST Chronic obstructive pulmonary disease, unspecified (CMS/HCC) COLONOSCOPY Routine 04/27/2024 DEPRESSION SCREENING Routine 04/16/[address] [facility] SCREENING DIGITAL Routine 03/22/2024 8:50 AM EDT Encounter for screening mammogram for malignant neoplasm of breast [facility] DEXA AXIAL SKELETON Routine 03/22/2024 8:14 AM EDT Encounter for screening for osteoporosis HEPATITIS C SCREENING Routine 02/09/2024 FALLS RISK ASSESSMENT Routine 02/09/2024 LIPID PANEL Routine 02/09/2024 from Last 3 Months or Most Recently Relevant to Health Maintenance Results * (ABNORMAL) TRANSTHORACIC ECHOCARDIOGRAM (TTE) COMPLETE W/ CONTRAST (02/27/2025 10:00 AM EDT) Left [facility] [place] 6.0 cm CV PACS Left [facility] [place] 5.7 cm CV PACS LA Area Sys [...] Area 3.1 cm2 CV PACS MV Deceleration Fajardo 5.1 m/s2 CV PACS E Wave Deceleration [...] MD CV ECHO PROCEDURES Final R esult * PET CT Skull to Mid Thigh [...] Signed Date: 02/20/2025 04:02 ET Workstation ID: [id number] Transcribed By: Self Edit Transcribed Date: 02/20/2025 [...] Signed Date: 02/20/2025 04:02 ET Workstation ID: [id number] Transcribed By: Self Edit Transcribed Date: 02/20/2025 03:20 ET Caden Acharya MD [facility] NM PROCEDURES Final Re sult * External PET Report (02/08/2025) Anatomical Region Laterality Modality Positron Emissio n Tomography (PET) Provider [employer] [facility] NM PROCEDURES Final Result * External CT Report (01/08/2025) Anatomical Region Laterality Modality Computed Tomogra phy Provider [employer] [facility]ED[facility] Final Result * (ABNORMAL) Complete blood count (12/11/2024 6:30 AM EST) WBC 7.2 4.8 - 10.8 K/mcL LAB HEMETOLOGY METHOD 12/11/2024 11:11 AM [facility] RBC 3.00(L) 3.80 - 4.80 M/mcL LAB HEMETOLOGY METHOD 12/11/2024 11:11 AM [facility] Hemoglobin 7.5(L) 11.5 - 16.0 g/dL LAB HEMETOLOGY METHOD 12/11/2024 11:11 AM [facility] Hematocrit 26.9(L) 35.0 - 47.0 % LAB HEMETOLOGY METHOD 12/11/2024 11:11 AM [facility] MCV 89.4 79.0 - 98.0 FL LAB HEMETOLOGY METHOD 12/11/2024 11:11 AM [facility] MCH 24.9(L) 27.0 - 32.0 pcg LAB HEMETOLOGY METHOD 12/11/2024 11:11 AM [facility] MCHC 27.9(L) 32.0 - 37.0 g/dL LAB HEMETOLOGY METHOD 12/11/2024 11:11 AM [facility] RDW 15.7(H) 11.0 - 15.0 % LAB HEMETOLOGY METHOD 12/11/2024 11:11 AM [facility] Platelets 399 130 - 400 K/mcL LAB HEMETOLOGY METHOD 12/11/2024 11:11 AM [facility] MPV 10.0 7.0 - 11.0 FL LAB HEMETOLOGY METHOD 12/11/2024 11:11 AM EST [facility] NRBC 0.0 <1.0 % LAB HEMETOLOGY METHOD 12/11/2024 11:11 AM EST [facility] NRBC Absolute 0.00 <0.10 K/mcL LAB HEMETOLOGY METHOD 12/11/2024 11:11 AM EST [facility] Blood Venous blood specimen / Unknown Venipuncture / Unknown 12/11/2024 6:30 AM EST 12/11/2024 9:22 AM EST us Glenroy Goff MD LAB BLOOD ORDERABLES Final Resul t [facility] [address] [place] [address], [place] [phone] * (ABNORMAL) Basic metabolic panel (12/11/2024 6:30 AM EST) Sodium 131(L) 133 - 145 mmol/L LAB CHEMISTRY METHOD 12/11/2024 11:11 AM [facility] Potassium 4.1 3.5 - 5.5 mmol/L LAB CHEMISTRY METHOD 12/11/2024 11:11 AM [facility] Chloride 84(L) 96 - 110 mmol/L LAB CHEMISTRY METHOD 12/11/2024 11:11 AM [facility] CO2 43(HH) 21 - 32 mmol/L LAB CHEMISTRY METHOD 12/11/2024 11:11 AM [facility] Anion Gap 4 3 - 11 LAB CHEMISTRY METHOD 12/11/2024 11:11 AM [facility] Glucose 89 70 - 100 mg/dL LAB CHEMISTRY METHOD 12/11/2024 11:11 AM [facility] BUN 17 5 - 25 mg/dL LAB CHEMISTRY METHOD 12/11/2024 11:11 AM [facility] Creatinine 0.83 0.50 - 1.10 mg/dL LAB CHEMISTRY METHOD 12/11/2024 11:11 AM EST [facility] eGFR 76 >=60 mL/min/1. 73m2 LAB CHEMISTRY METHOD 12/11/2024 11:11 AM EST [facility] Comment:Calculation based on the??Chronic Kidney Disease Epidemiology Collaboration (CKD-EPI) equation refit??without adjustment for race. BUN/Creatinine Ratio 20.5 LAB CHEMISTRY METHOD 12/11/2024 11:11 AM EST [facility] Calcium 8.6 8.5 - 10.5 mg/dL LAB CHEMISTRY METHOD 12/11/2024 11:11 AM [facility] Blood Venous blood specimen / Unknown Venipuncture / Unknown 12/11/2024 6:30 AM EST 12/11/2024 9:22 AM EST Glenroy Goff MD LAB BLOOD ORDERABLES Final Resul t [facility] [address] [place] [address], * Colonoscopy (04/27/2024) Colonoscopy No Interpretation , Abstracted Anatomical Region Laterality Modality Other Historical Provider HEALTH MAINTENANCE Final Result * Depression Screening (04/16/2024) Depression Screening Abstracted Historical Provider HEALTH MAINTENANCE Final Result * LUIS ARMANDO SCREENING DIGITAL (03/22/2024 8:50 AM EDT) Anatomical Region Laterality Modality Mammography 03/21/2024 3:07 PM EDT Narrative 03/22/2024 8:50 AM EDT [facility] Diagnostic Imaging Department [address] [place] [address] Patient: ??DENISA CARTAGENA ?/Age/Sex: 1955 - 68 - F Unit#: ??[id number] ? Location/Status: ??SPDIMAM/REG CLI ? Mnemonic/Ordering Site: ??DIGSC/SPMAM Ordering Physician: ??MANZANARESDORINDAJoleen [facility] Screening Digital - 03/21/24 - Report Status:Signed EXAM: [facility] Screening Digital EXAM DATE AND TIME: 03/21/2024 3:49 PM HISTORY: ??Screening. Left breast biopsy in 2016, pathology benign. COMPARISON: ??02/16/23, 09/21/19, 09/18/18, 09/15/17 TECHNIQUE: Bilateral digital breast tomosynthesis was performed in the CC and MLO projections. Computer aided detection with Attivio 3D 3.1 was employed. TISSUE DENSITY: b. [...] Procedure Note Erica Treadwell MD - 07/16/2024 [facility] Diagnostic Imaging Department [address] [place] [id number] Patient: DENISA CARTAGENA /Age/Sex: 1955 - 68 - F Unit#: [id number] Location/Status: [facility] CLI Mnemonic/Ordering Site: DIGCT/[facility] Ordering Physician: YANN MANZANARES [facility] Screening Digital - 03/21/24 - Report Status:Signed EXAM: [facility] Screening Digital EXAM DATE AND TIME: 03/21/2024 3:49 PM HISTORY: Screening. Left breast biopsy in 2016, pathology benign. COMPARISON: 02/16/23, 09/21/19, 09/18/18, 09/15/17 TECHNIQUE: Bilateral digital breast tomosynthesis was performed in the CCand MLO projections. Computer aided detection with Attivio 3D 3.1was employed. TISSUE DENSITY: b. There [...] TREADWELL MD Dic Date/Time: 03/22/2449 Sign date/Time: 03/22/24849 us Yann Manzanares MD IMG BI PROCEDURES Final Result * LUIS ARMANDO DEXA AXIAL SKELETON (03/22/2024 8:14 AM EDT) Anatomical Region Laterality Modality Mammography 03/21/2024 3:07 PM EDT Narrative 03/22/2024 8:14 AM EDT [facility] Diagnostic Imaging Department [address] [place] [address] Patient: ??JENNI CARTAGENAY ?/Age/Sex: 1955 - F Unit#: ??[id number] ? Location/Status: ??SPDIMAM/REG CLI ? Mnemonic/Ordering Site: [...] probability of hip fracture of 7.1%. Code 73087 Dictating Physician: ??MILTON MENDEZ MD Electronically Signed by: ??MILTON MENDEZ MD Dic Date/Time: ??03/22/24812 Sign date/Time: ??03/22/24813 Procedure Note Milton Mendez MD - 07/16/2024 [facility] Diagnostic Imaging Department [address] [place] [address] Patient: DENISA CARTAGENA /Age/Sex: 1955 - 68 - F Unit#: [id number] Location/Status: SPDIMAM/REG CLI Mnemonic/Ordering Site: MAMDEXAAX/SPMAM Ordering [...] density of the femurs bilaterally is 0.912 gm/[id number] is 90% of that of young normals [...] probability of hip fracture of 7.1%. Code 61442 Dictating Physician: MILTON MENDEZ MD Electronically Signed by: MILTON MENDEZ MD Dic Date/Time: 03/22/24812 Sign date/Time: 03/22/24813 Result [facility] Yann Manzanares MD IMG BI PROCEDURES Final Result * Falls Risk Assessment (02/09/2024) [facility] Falls Risk Assessment Abstracted Result [facility] Provider HEALTH MAINTENANCE Final Result * Hepatitis C Screening (02/09/2024) [facility] Hepatitis C Screening Abstracted Result [facility] Provider HEALTH MAINTENANCE Final Result * (ABNORMAL) Lipid panel (02/09/2024) [facility] LDL/HDL Ratio 2 0 - 4 Triglycerides 80 0 - 150 mg/dL Cholesterol 237(A) 0 - 200 mg/dL HDL 103 >=40 mg/dL LDL Cholesterol 118(A) 0 - 100 mg/dL Blood Venous blood specimen / Unknown Result [facility] Provider LAB BLOOD ORDERABLES Iris l Result from Last 3 Months or Most Recently Relevant to Health Maintenance Insurance MEDICARE [place]ICA[place] - [place] Advance Directives Documents on File Type Date Recorded Patient Manager Of Compliance Expl anation Health Care Decision (hx) 04/27/2024 [...] DIRECTIVE Health Care Decision (hx) 03/10/2019 AD VREA DIRECTIVE Health Care Decision (hx) 06/08/2018 AD [...] (hx) 12/23/2015 AD VERA DIRECTIVE Care Teams Educational Technology Coordinator Relationship Specialty Start Date End Date Yann Manzanares MD [address] [place] [id number] PCP - General 02/08/24
--- OUTSIDE RECORDS SUMMARY | 2025-02-28 11:53 | XMS_ITS | Encounter Summary ---
Author Organization [facility] Address [address] [place] [address] Care Team Providers Care Associate Artistic Director Name Role Phone Yann Manzanares MD Primary Care Provider [phone] Reason for Referral * Imaging (Emergency) - Authorized Specialty Diagnoses / Procedures Referred By Contac t Referred To Contact Cardiology Diagnoses Pulmonary hypertension (CMS/HCC) Procedures Transthoracic echocardiogram (TTE) complete with PRN contrast, bubble, strain, and 3D order panel FL TTE W 2D IMAGE COMPLETE W DOPPLER ECHO & COLOR FLOW DOPPLER ECHO FL MARICRUZ 2D COMPLETE W/CONTRAST OR W & WO CONTRAST WITH DOPPLER Justine Wong MD [address] [place] [address] Phone: tel: fax: [facility] Referral ID Status Reason Start Date Expiration Date V isits Requested Visits Authorized [id number] Authorized 02/26/2025 02/26/2026 1 1 Reason for Visit * Reason Comments Lung Nodule Encounter Details Date Type Department Care Team ([facility] st Contact Info) Description 02/26/2025 10:00 AM EDT Consult Pulmonology - [address] [place] [id number] Justine Wong MD [address] [place] [id number] Lung mass (Primary Dx); Chronic obstructive pulmonary disease, unspecified COPD type (CMS/HCC); Chronic respiratory failure with hypercapnia; RITA on CPAP; Pulmonary hypertension (CMS/HCC); SOB (shortness of breath) Social History Tobacco Use Types Packs/Day Years [...] Sign Reading Time Taken Comments Blood Pressure 124/56 02/26/2025 10:17 AM EDT Pulse 62 02/26/2025 10:17 AM EDT Temperature 36.6 ??C (97.9 ??F) 02/26/2025 10:17 AM E DT Respiratory Rate 18 02/26/2025 10:17 AM EDT Oxygen Saturation 92% 02/26/2025 10:17 AM EDT on 3lt o2 Inhaled Oxygen Concentration - - Weight 83.9 kg (185 lb) 02/26/2025 10:17 AM EDT Height 154.9 cm (5' 1 ) 02/26/2025 10:17 AM EDT Body Mass Index 34.96 02/26/2025 10:17 AM EDT documented in this encounter Progress Notes * Justine Wong MD - 02/26/2025 10:00 AM EDT Images from the original note were not included. 02/26/2025 Lluvia Velezgenevieve : 1955 PCP: Yann Manzanares MD Chief Complaint:: lung nodules History of Present Illness: Lluvia Cartagena is a 69 y.o. female former smoker (50 pack years) PMH COPD on nocturnal trilogy NIPPV on 3-6 LPM O2 during daytime, GERD, pulmonary HTN, bipolar disorder, who presents with abnormal CT chest. On eliquis for afib, s/p DCCV a year ago. Pt had CT chest done Dec 2024 and this shows CELINA nodules and irregular opacities that are subspleural. No mediastinal lymphadenopathy. Some calcifications present. PET CT done January 2025 with avid CELINA nodules and opacities SUV 8.1. Mild mediastinal lymphadenopathy. Non avid 8 mm LLL nodule which isnot apparent to me as a distinct nodule. Looking back several years at CT scans In our system there are nodules in that region that have grown, progressed, gotten more confluent over time. Per Dr. Acharya notes, pt has been empirically treated for aspergilloma 2 months ago per pt for 1month treatment. Currently is on bactrim for empiric tx of infection such as nocardia per Dr. Acharya. Pt denies hx of resp culture or of bronchoscopy. No F/C, hemoptysis, unintended wt loss. Has dyspnea as per baseline. 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 Allergies: Allergies Allergen Reactions Codeine Fluoxetine Haloperidol Sulfa Dyne Sulfa Drugs Medications: Current Outpatient Medications Medication Instructions acetaminophen (TYLENOL) 500 mg, oral, Every 6 hours PRN albuterol 2.5 mg /3 mL (0.083 %) nebulizer solution 1 vial, nebulization, Every 4 hours PRN albuterol HFA (PROAIR HFA ; PROVENTIL HFA ; VENTOLIN HFA) 90 mcg/actuation inhaler 2 puffs, inhalation, Every 4 hours PRN alendronate (FOSAMAX) 70 mg tablet 1 tablet, oral, Every 7 days apixaban (ELIQUIS) 5 mg, oral, 2 times daily ARIPiprazole (ABILIFY) 10 mg tablet 1 tablet, oral, Daily aspirin 81 mg EC tablet 1 tablet, oral, Daily betamethasone, augmented, (DIPROLENE) 0.05 % ointment Apply topically 2 times/day for 3 weeks betamethasone, augmented, (DIPROLENE-AF) 0.05 % cream Apply topically 12 hrly bisacodyL (DULCOLAX) 5 mg EC tablet Take 2 tablets by mouth right before your first dose of liquid prep. calcium carbonate-vitamin D (Calcium 500 + D) 500 mg-5 mcg (200 unit) per tablet 1 tablet, oral, 2 times daily cholecalciferol (VITAMIN D-3) 50 mcg (2,000 unit) capsule 1 capsule, oral, Every morning cyclobenzaprine (FLEXERIL) 5 mg tablet 1 tablet, oral, 3 times daily PRN diclofenac (VOLTAREN) 1 g, Topical, 3 times daily PRN docusate sodium (COLACE) 100 mg tablet 1 tablet, oral, Every morning esomeprazole (NEXIUM) 40 mg, oral, Every morning before breakfast fish oil (OMEGA-3) 60-90-500 mg capsule 1,000 mg, oral, Daily fish oil (OMEGA-3) 60-90-500 mg capsule 1,000 mg, oral, Daily fluocinolone acetonide oiL 0.01 % drops 4 drops, otic (ear), Every 48 hours PRN fluticasone furoate-vilanteroL (Breo Ellipta) 200-25 mcg/dose inhaler INHALE 1 PUFF DIRECTED ONCE A DAY fluticasone propionate (FLONASE) 50 mcg/actuation nasal spray 1 spray, Each Nostril, 2 times daily,Shake gently. Before first use, prime pump. After use, clean tip and replace cap. furosemide (LASIX) 20 mg, oral, Daily PRN furosemide (LASIX) 40 mg, oral, Daily gabapentin (NEURONTIN) 100 mg capsule 1 capsule, oral, 3 times daily guaiFENesin (MUCINEX) 600 mg 12 hr tablet 2 tablets, oral, 2 times daily incontinence pad, liner, disp pad Incontinence Supply Disposable (Disposable Liners) Misc Use 3 times a day as needed for incontinence.= lactulose (CHRONULAC) 20 g, oral, Daily PRN lamoTRIgine (LaMICtal) 200 mg tablet 1 tablet, oral, Every morning lamoTRIgine (LAMICTAL) 300 mg, oral, Nightly metoprolol succinate (TOPROL-XL) 100 mg, oral, Daily, Do not crush or chew. mineral oil (Mineral Oil Light) topical 4 g, Topical, Every 48 hours PRN mineral oil external liquid 1 mL, Not Applicable, 2 times daily mirtazapine (REMERON) 15 mg tablet 1 tablet, oral, Nightly montelukast (SINGULAIR) 10 mg tablet 1 tablet, oral, Daily omega-3 acid ethyl esters (LOVAZA) 1,000 mg, oral, 2 times daily pantoprazole (PROTONIX) 40 mg, oral, Daily, 30 minutes before breakfast daily potassium chloride (KLOR-CON M10) 10 mEq CR tablet 10 mEq, oral, Daily, Tablet may be swallowed whole (do not crush/chew/suck on) OR broken in half and each half swallowed separately OR dissolved (whole tablet) in ~4 ounces of water (allow ~2 minutes to dissolve, stir well and administer immediately). salicylic acid (T/LYNN) 3 % shampoo Apply one drop every 24-48 hours as needed. salmeteroL (Serevent Diskus) 50 mcg/dose diskus inhaler 1 each, inhalation, 2 times daily senna (SENOKOT) 8.6 mg, oral, Daily PRN theophylline (THEODUR) 200 mg 12 hr tablet 1 tablet, oral, 2 times daily umeclidinium (Incruse Ellipta) 62.5 mcg/actuation inhalation 1 puff, inhalation, Daily vilazodone (VIIBRYD) 40 mg, oral, Every morning Past Medical History: Diagnosis Date Bipolar I disorder ([facility]) 06/10/2017 DX:Bipolar I disorder ([facility]) Chronic obstructive pulmonary disease ([facility]) 07/29/2017 DX:Chronic obstructive pulmonary disease ([facility]) Chronic respiratory failure with hypercapnia 08/02/2017 DX:Chronic respiratory failure with hypercapnia ([facility]) Dependence on supplemental oxygen 06/15/2017 DX:Dependence on supplemental oxygen Depression 10/09/2017 DX:Depression Gastroesophageal reflux disease 06/08/2017 DX:Gastroesophageal reflux disease Insomnia 06/08/2017 DX:Insomnia RITA on CPAP 11/08/2017 DX:RITA on CPAP; COMMENT: Life supply/cpap Pulmonary hypertension, secondary 08/02/2017 DX:Pulmonary hypertension, secondary Retinal hemorrhage 06/08/2017 DX:Retinal hemorrhage Tobacco user 08/02/2017 DX:Tobacco user Past Surgical History: Procedure Laterality Date OTHER SURGICAL HISTORY PROCEDURE: TRACHEOSTOMY OR LARNGECTOMY; COMMENT: hx of tracheostomy for resp failure Family History Problem Relation Name Age of Onset Other (Other: kidney Disease) Sister No Known Problems Brother No Known Problems Brother No Known Problems Mother No Known Problems Father Diabetes Mother's side Social History Socioeconomic History Marital status: Spouse name: Not on file Number of children: Not on file Years of education: Not on file Highest education level: Not on file Occupational History Not on file Tobacco Use Smoking status: Former Current packs/day: 2.00 Types: Cigarettes Smokeless tobacco: Never Substance and Sexual Activity Alcohol use: Not Currently Drug use: Never Sexual activity: Not on file Other Topics Concern Not on file Social History Narrative Not on file Review of Systems Constitutional: Negative. HENT: Negative. Eyes: Negative. Respiratory: See HPI otherwise negative Cardiovascular: Negative. Gastrointestinal: Negative. Endocrine: Negative. Genitourinary: Negative. Musculoskeletal: Negative. Skin: Negative. Breast: negative. Allergic/Immunologic: Negative. Neurological: Negative. Hematological: Negative. Psychiatric/Behavioral: Negative. Vitals: 02/26/25 1017 BP: 124/56 Pulse: 62 Resp: 18 Temp: 36.6 ??C (97.9 ??F) SpO2: 92% Body mass index is 34.96 kg/m??. General: No acute distress HEENT: Mucous membranes moist Neck: no JVD, supple neck Chest: Clear to auscultation, no wheezing or rales, no accessory muscle use CVS: S1-S2, regular rhythm, no murmurs Abdomen: Nondistended Extremities: No edema, warm Skin: No rashes or lesions Neuro: Alert and oriented x 3 Lab Results Component Value Date BUN 17 12/11/2024 CALCIUM 8.6 12/11/2024 CL 84 (L) 12/11/2024 CHOL 237 (A) 02/09/2024 CO2 43 (HH) 12/11/2024 CREATININE 0.83 12/11/2024 HDL 103 02/09/2024 HCT 26.9 (L) 12/11/2024 HGB 7.5 (L) 12/11/2024 HGBA1C 5.8 02/09/2024 LDL 118 (A) 02/09/2024 PLT 399 12/11/2024 K 4.1 12/11/2024 NA 131 (L) 12/11/2024 TRIG 80 02/09/2024 WBC 7.2 12/11/2024 Pulmonary Function Results: Reviewed from scanned reports Echo 2020 Imaging: I personally reviewed imaging and the data revealed: Dec 2024: January CT chest [facility]: read as scattered [address] chest Oct 2021: Visit Diagnoses: 1. Lung mass 2. Chronic obstructive pulmonary disease, unspecified COPD type (CMS/HCC) 3. Chronic respiratory failure with hypercapnia 4. RITA on CPAP 5. Pulmonary hypertension (CMS/HCC) Impression: CELINA persistent nodules and opacities These have become more dense, progressive, and larger over 4 years and now PET avid. Concerning formalignancy in this high risk pt. Ddx infection atypical, pt does not have infectious or constitutional symptoms. Discussed next best step diagnostic is bronchoscopy with biopsies, including indications, risks, and benefits. Pt is at higher risk due to hypercapnia and pulm HTN, will need risk stratification. No alternative procedure with lower risk profile. Recommendations: -Recommend bronchoscopy with biopsy -Preop TTE, Cardiology eval for optimization -Eliquis needs to be held 48 hrs -Preop labs, has EKG -Overnight observation telemetry post procedure given severity of lung disease Today I have spent 61 minutes on this encounter with the following activities: Pre-visit review of chart, including scanned records Pre-visit review of imaging Reviewing patient provided information Personal face to face with patient (including discussion counseling) History and physical examination Medication reconciliation Discussion of laboratory results and pathology Discussion with consulting/referring physician(s) Coordination of care including with office staff and nurse navigation Documentation. Justine Wong [place] [address] Office [phone] documented in this encounter Plan of Treatment Scheduled Orders Name Type Priority Associated Diagnoses Orde r Schedule CBC and differential Lab Routine Lung mass Chronic obstructive pulmonary disease, unspecified COPD type (CMS/HCC) Chronic respiratory failure with hypercapnia (CMS/HCC) RITA on CPAP Pulmonary hypertension (CMS/HCC) 1 Occurrences starting 02/26/2025 until 02/26/2026 Basic metabolic panel Lab Routine Lung mass Chronic obstructive pulmonary disease, unspecified COPD type (CMS/HCC) Chronic respiratory failure with hypercapnia (CMS/HCC) RITA on CPAP Pulmonary hypertension (CMS/HCC) 1 Occurrences starting 02/26/2025 until 02/26/2026 Prothrombin time with INR Lab Routine Lung mass Chronic obstructive pulmonary disease, unspecified COPD type (CMS/HCC) Chronic respiratory failure with hypercapnia (CMS/HCC) RITA on CPAP Pulmonary hypertension (CMS/HCC) SOB (shortness of breath) 1 Occurrences starting 02/26/2025 until 02/26/2026 ECG 12 lead ECG Routine Lung mass Chronic obstructive pulmonary disease, unspecified COPD type (CMS/HCC) Chronic respiratory failure with hypercapnia (CMS/HCC) RITA on CPAP Pulmonary hypertension (CMS/HCC) 1 Occurrences starting 02/26/2025 until 02/26/2026 documented as of this encounter Results * (ABNORMAL) TRANSTHORACIC ECHOCARDIOGRAM (TTE) COMPLETE W/ CONTRAST (02/27/2025 10:00 AM EDT) Left Atrium Minor [place] 6.0 cm CV PACS Left Atrium Major [place] 5.7 cm CV PACS LA Area Sys [...] Area 3.1 cm2 CV PACS MV Deceleration [place] 5.1 m/s2 CV PACS E Wave Deceleration [...] patient body habitus and low parasternal window. Justine Wong MD CV ECHO PROCEDURES Final R esult documented in this encounter Visit Diagnoses Diagnosis Lung mass- Primary Swelling, mass, or lump in chest Chronic obstructive pulmonary disease, unspecified COPD type (CMS/HCC) Chronic respiratory failure with hypercapnia RITA on CPAP Pulmonary hypertension (CMS/HCC) Other chronic pulmonary heart diseases SOB (shortness of breath) Shortness of breath Pulmonary hypertension (CMS/HCC) Other chronic pulmonary heart diseases documented in this encounter Care Teams Associate Artistic Director Relationship Specialty Start Date End Date Yann Manzanares MD [address] [place] [address] PCP - General 02/08/24 documented as of this encounter
--- OUTSIDE RECORDS SUMMARY | 2025-02-28 11:54 | XMS_ITS | Encounter Summary ---
Author Organization [facility] Address [address] [place] [address] Care Team Providers Care District Agent Name Role Phone Yann Manzanares MD Primary Care Provider [phone] Encounter Details Date Type Department Care Team (Late st Contact Info) Description 11/09/2024 Lab Requisition [facility] - Main Lab [address] [facility] [place] [phone] Janice Núñez MD [address] [place] [address] Chronic obstructive pulmonary disease, unspecified (CMS/HCC) Social [...] mmol/L LAB CHEMISTRY METHOD 11/12/2024 4:30 PM [facility] Potassium 4.1 3.5 - 5.5 mmol/L LAB CHEMISTRY METHOD 11/12/2024 4:30 PM [facility] Chloride 92(L) 96 - 110 mmol/L LAB CHEMISTRY METHOD 11/12/2024 4:30 PM [facility] CO2 43(HH) 21 - 32 mmol/L LAB CHEMISTRY METHOD 11/12/2024 4:30 PM [facility] Anion Gap 6 3 - 11 LAB CHEMISTRY METHOD 11/12/2024 4:30 PM [facility] Glucose 90 70 - 100 mg/dL LAB CHEMISTRY METHOD 11/12/2024 4:30 PM [facility] BUN 11 5 - 25 mg/dL LAB CHEMISTRY METHOD 11/12/2024 4:30 PM [facility] Creatinine 0.98 0.50 - 1.10 mg/dL LAB CHEMISTRY METHOD 11/12/2024 4:30 PM [facility] eGFR 62 >=60 mL/min/1. 73m2 LAB CHEMISTRY METHOD 11/12/2024 4:30 PM [facility] Comment:Calculation based on the??Chronic Kidney Disease Epidemiology Collaboration (CKD-EPI) equation refit??without adjustment for race. BUN/Creatinine Ratio 11.2 LAB CHEMISTRY METHOD 11/12/2024 4:30 PM [facility] Calcium 9.3 8.5 - 10.5 mg/dL LAB CHEMISTRY METHOD 11/12/2024 4:30 PM [facility] Blood Venous blood specimen / Unknown Venipuncture / Unknown 11/12/2024 8:41 AM EST 11/12/2024 11:35 AM EST Janice Núñez MD LAB BLOOD ORDERABLES Final Resul t [facility] [address] [place] [address], * (ABNORMAL) Complete blood count (11/12/2024 8:41 AM EST) WBC 6.1 4.8 - 10.8 K/mcL LAB HEMETOLOGY METHOD 11/12/2024 11:55 AM EST [facility] RBC 3.50(L) 3.80 - 4.80 M/mcL LAB HEMETOLOGY METHOD 11/12/2024 11:55 AM EST [facility] Hemoglobin 9.2(L) 11.5 - 16.0 g/dL LAB HEMETOLOGY METHOD 11/12/2024 11:55 AM EST [facility] Hematocrit 32.4(L) 35.0 - 47.0 % LAB HEMETOLOGY METHOD 11/12/2024 11:55 AM EST [facility] MCV 93.9 79.0 - 98.0 FL LAB HEMETOLOGY METHOD 11/12/2024 11:55 AM EST [facility] MCH 26.7(L) 27.0 - 32.0 pcg LAB HEMETOLOGY METHOD 11/12/2024 11:55 AM [facility] MCHC 28.4(L) 32.0 - 37.0 g/dL LAB HEMETOLOGY METHOD 11/12/2024 11:55 AM EST [facility] RDW 14.4 11.0 - 15.0 % LAB HEMETOLOGY METHOD 11/12/2024 11:55 AM EST [facility] Platelets 435(H) 130 - 400 K/mcL LAB HEMETOLOGY METHOD 11/12/2024 11:55 AM [facility] MPV 9.7 7.0 - 11.0 FL LAB HEMETOLOGY METHOD 11/12/2024 11:55 AM EST [facility] NRBC 0.0 <1.0 % LAB HEMETOLOGY METHOD 11/12/2024 11:55 AM EST [facility] NRBC Absolute 0.00 <0.10 K/mcL LAB HEMETOLOGY METHOD 11/12/2024 11:55 AM EST [facility] Blood Venous blood specimen / Unknown Venipuncture / Unknown 11/12/2024 8:41 AM EST 11/12/2024 11:35 AM EST us Janice Núñez MD LAB BLOOD ORDERABLES Final Resul t [facility] [address] [place] [address], documented in this encounter Visit Diagnoses Diagnosis Chronic obstructive pulmonary disease, unspecified documented in this encounter Care Teams District Agent Relationship Specialty Start Date End Date Yann Manzanares MD [address] [place] [id number] PCP - General 02/08/24 documented as of this encounter
--- OUTSIDE RECORDS SUMMARY | 2025-02-28 11:54 | XMS_ITS | Data Portability ---
Author Organization [place] - [facility], Allergy Address [address] [place] [address] Care Team Providers Care Coal Inspector Name Role Phone BRADLEY LICHAMarcos Primary Care [...] Potential BiCros candidate - refer to provider [id number] Not available 01/15/2025 11:26:15 Plan of Treatment [...] Sensorine ural hearing loss of bilateral ears [id number] Active 2016 Sensorine ural hearing loss, bilateral ; Note: Date Diagnosed : 01/27/2017 10:56 AM (H90.3) Not Available [facility] 4 03:15:55 Bilateral diffuse otitis externa [id number] 49287 Active 2019 Diffuse otitis externa, bilateral ; Note: Date Diagnosed : 02/08/2020 12:16 PM (H60.313) Not Available [facility] 4 03:15:55 Dizziness and giddiness [id number] Active 2016 Dizziness and giddiness ; Note: Date Diagnosed : 01/27/2017 11:15 AM (R42) Not Available [facility] 4 03:15:55 Posterior rhinorrhe a [id number] Active 2019 Postnasal drip; Note: Date Diagnosed : 02/08/2020 12:53 PM (R09.82) Not Available [facility] 4 03:15:56 Problem Notes None recorded. Procedures Surgical History Date Name Laterality Status Provider Name and Address Organization Details Recorded Time 01/15/2025 Comp Audio with Tymps (92608 & 32857) completed DEL KOO, [address],[place] [address], [place], [address], [facility] - [facility] 01/15/2025 11:26:17 Imaging Results Imaging Date Name Status LastModified by Organiz ation Details LastModified Time 01/15/2025 audiogram completed BARCODE Information no t available 01/15/2025 15:18:29 Procedure Notes None recorded. Medical Equipment None Reported. Allergies Allergen ID Allergen Name Allergen Category Reaction Reaction Severity Criticality Documentation Date Start Date Code Code System Note Provider Name and Address Organization Details Recorded Time 209921 haloperid ol lactate medicatio n other Not available Not available 04/10/2024 52227 3 RxNorm React ion: unkno wn, unspe cifie d;; Not Available [facility] 4 01:14:03 402990 codeine sulfate medicatio n other Not available Not available 04/10/2024 72617 RxNorm React ion: unkno wn, unspe cifie d;; Not Available [facility] 4 01:14:04 447056 Substance with sulfonami de structure and antibacte rial mechanism of action (substanc e) medicatio n other Not available Not available 04/10/2024 02699 8003 SNOMED React ion: unkno wn, unspe cifie d;; Not Available [facility] 4 01:14:05 Medications Name Sig Start Date [...] nebulizati on 2016 active Medicatio n ID: [id number] Br and Name: albuterol sulfate S end Method: E-Prescri bed Subs Allowed: subs OK Medica tionGener icName: albuterol sulfate Not Available Not Available Not Available Colace 100 mg capsule 2016 active Medicatio n ID: [id number] Br and Name: Colace Se nd Method: [...] release,12 hr 2016 active Medicatio n ID: [id number] Du ration Value: 30 Brand Name: theophyll [...] by mouth 2016 active Medicatio n ID: [id number] Du ration Value: 30 Brand Name: Claritin Send Method: E-Prescri bed Subs Allowed: subs OK Medica tionGener icName: Claritin Not Available Not Available Not Available Artificial Tears (dextran 70-hyprome llose) eye drops 2016 active Medicatio n ID: [id number] Br and Name: Artificia l Tears(dex h43-shorn ) Send Method: E-Prescri bed Subs Allowed: subs OK Medica tionGener icName: Artificia l Tears(dex l08-uclic ) Not Available Not Available Not Available [...] mg tablet 2016 active Medicatio n ID: [id number] Du ration Value: 30 Brand Name: atenolol [...] magnesium) tablet 2016 active Medicatio n ID: [id number] Du ration Value: 30 Brand Name: magnesium oxide Sen d Method: E-Prescri bed Subs Allowed: subs OK Specia l Instructi on: TK 1 T PO QD Medica tionGener icName: magnesium oxide Not Available Not Available Not Available lorazepam 0.5 mg tablet 2016 active Medicatio n ID: [id number] Du ration Value: 30 Brand Name: lorazepam Send Method: E-Prescri bed Subs Allowed: subs OK Specia l Instructi on: TK 1 T PO QHS PRF SLEEP Med icationGe nericName : lorazepam Not Available Not Available Not Available morphine 10 mg/mL intravenou s solution 2016 active Medicatio n ID: [id number] Br and Name: morphine Send Method: E-Prescri bed Subs Allowed: subs OK Medica tionGener icName: morphine Not Available Not Available Not Available pantoprazo le 40 mg tablet,del ayed release TAKE 1 TABLET BY MOUTH EVERY DAY IN THE MORNING active Not Available Not Available No t Available Advair Diskus 250 mcg-50 mcg/dose powder for inhalation 2016 active Medicatio n ID: [id number] Br and Name: Advair Diskus Se nd Method: E-Prescri bed Subs Allowed: subs OK Medica tionGener icName: Advair Diskus Not Available Not Available Not Available nicotine 21 mg/24 hr daily transderma l patch 2016 active Medicatio n ID: [id number] Du ration Value: 28 Brand Name: nicotine [...] mg tablet 2016 active Medicatio n ID: [id number] Du ration Value: 30 Brand Name: lamotrigi [...] sustained- release 2016 active Medicatio n ID: [id number] Du ration Value: 30 Brand Name: bupropion HCl Send Method: E-Prescri bed Subs Allowed: subs OK Specia l Instructi on: TK 1 T PO QAM Medic ationGene ricName: bupropion HCl Not Available Not Available Not Available aripiprazo le 15 mg tablet 2016 active Medicatio n ID: [id number] Du ration Value: 30 Brand Name: aripipraz [...] inhalation capsules 2016 active Medicatio n ID: [id number] Du ration Value: 30 Brand Name: Spiriva [...] mg tablet 2016 active Medicatio n ID: [id number] Du ration Value: 30 Brand Name: Sabrina [...] SNOMED-CT Code Diagnosis ICD10 Code Diagnosis Note [id number] KALEN MAC MD [facility] [address] [address] 01/15/2025 10:56:41 01/15/2025 11:53:57 Sensorineural hearing loss of bilateral ears [id number] H90.3 [id number] INDIGO JUDGE [facility] [address] [address] 01/15/2025 11:23:44 01/16/2025 07:43:57 Sensorineural hearing loss of bilateral ears [id number] H90.3 Audiologic al evaluation results: 01/15/2025 Right [...] [place] [employer] Lluvia A Lahair [id number] Lluvia A Lahair 01/15/2025 2 [place] [facility] Lluvia A Lahair [id number] Lluvia A Lahair 01/15/2025 1 [place] [employer] Lluvia A Lahair [id number] Lluvia A Lahair 01/15/2025 2 [place] Lluvia A Lahair [id number] Lluvia A Lahair Notes Date Note Type Note Provider Name and Address Organization Details Recorded Time 01/15/2025 text/html HT medical clearance, known asymmetrical SNHL >>AD DEL KOO, AUD [address] [address], [place], [address], [facility] - [facility] 01/15/2025 11:27:24 01/15/2025 text/html 69 year old florencia mesa presents to the office for hearing evaluation. She currently lives at home with her daughter but had been living in nursing homes and group homes over the past few years. She also presents here today with her [employer]. She has been using an over the counter hearing aid in the right ear with poor result. She has known profound hearing loss on the left from a left sudden hearing loss in the past. KALEN MAC MD [address] [place] [address], [place], [address], [facility] - [facility] 01/15/2025 20:55:02 OBGyn Episode No OBEpisode recorded.
--- NOTE | 2025-02-28 13:23 | MHC.AU.HA3 ---
Hearing Instrument Follow-Up- Binaural Date of Visit: 02/28/25 Right Ear: Aly, Model, Color, Serial Number: Montse Guajardo I 50 R tyson Ma#[id number] Content Developer Repair Warranty: 03/03/2028 Content Developer Loss and Damage Warranty: 03/03/2028 [facility] Service Plan: 02/06/26 Battery Size: Rechargeable Copper Flotation Operator/Slim Tube: 2M Earmold/Dome/CShell/SlimTip:med vented Type of Wax Guard: Cerustop Dispensed By: [facility] Date of Fittin02/06/25 Left Ear: Aly, Model, Color, Serial Number: Mnotse Ma#[id number] Content Developer Repair Warranty: 03/03/2028 Content Developer Loss and Damage Warranty: 03/03/2028 [facility] Service Plan: 02/06/26 Battery Size: Rechargeable Copper Flotation Operator/Slim Tube: 2M Earmold/Dome/CShell/SlimTip: med vented Type of Wax Guard: Cerustop Dispensed By: [facility] Date of Fittin02/06/25 Follow-Up Summary: Seen for follow. Reports good satisfaction with the new hearing aids. Had some questions about her phone and also notices having a harder time hearing if there is a noise in the environment such as kitchen fan. Reviewed how to answer calls and select how you want sound handled on iphone (ANGEL, speaker, or phone). Increased noise reduction settings slightly across programs. Recommendations: Recommendations: Hearing instrument follow-up or maintenance as needed. Diagnosis Code(s): Primary Diagnosis: H90.3 Bilateral Sensorineural Hearing Loss Signature: Provider: John Denny, CCC-A
== END 2025-02-28 10:43 | disposition home or self-care (01) ==
LOC: HO.HAP 10:42
PROVIDERS: PCP Student in an Organized Health Care Education/Training Program; Visit Provider Otolaryngology
DX: Z13.89 Encounter for screening for other disorder (principal)

== ENCOUNTER 2025-05-08 11:02 | Outpatient (AMB) | payer OTHER, SELFPAY ==
--- NOTE | 2025-05-08 11:03 | A.OFFVIS_ITS ---
Vital Signs 05/08/25 11:04 Height 5 ft 1 in Weight 185 lb BMI 35.0 BP 117/58 L Blood Pressure Location Rt brachial Position Sitting Pulse 63 Pulse Source Pulse Oximeter Pulse Oximetry (%) 93 Oxygen Delivery Method Nasal Cannula Oxygen Flow Rate 3 Intake Visit Reasons: COPD Allergies codeine [Codeine] Allergy (Intermediate, Verified 05/08/25 11:15) RESTLESS/RASH haloperidol [Haldol] Allergy (Intermediate, Verified 05/08/25 11:15) Palpitations Sulfa (Sulfonamide Antibiotics) Allergy (Intermediate, Verified 05/08/25 11:15) HIVES HPI Comments Details: The patient is a 69-year-old woman with known history of COPD and chronic hypoxic and hypercarbic respiratory failure. She 1st did require a tracheostomy in the past and she had a prolonged hospitalization which she was able to be decannulated. She was then placed on noninvasive ventilation. The patient has been inconsistent with the usage. In January of this year the patient was admitted to the hospital with acute on chronic hypercarbic respiratory failure where her pCO2 was about 118 mmHg.. The patient was placed on noninvasive ventilation and her pH normalize and her average pCO2 was between 60-70. She was discharged to use her trilogy at home. At home she is still struggling with the noninvasive ventilator. She has a hard time getting used to it. Her DME company, [employer] will be performing overnight oximetry with an end-tidal CO2 to measure her see you to into appropriately adjust her noninvasive ventilator. She also has made mentioning that she has been more short of breath and she has had more hypoxia. In the office we did perform a 6 minutes walk test and she did require 2 L nasal cannula to maintain her pulse ox above 90%. Therefore, she will be using 3 L instead of to with activity and also with sleep. 04/15/2023 the patient is here for pulmonary follow-up visit. She still residing at the [facility]. She is using her trilogy noninvasive ventilator every night. However, she has been using more recently because she ended up in the hospital. She was having chest pressure sensation and dizziness. During the hospitalization at [facility] the patient states that she had an ABG done demonstrating a pCO2 58 and per report was okay. Therefore, will hold off on doing an ABG today. The patient has been fairly relatively well from a respiratory status. She does complaint of heaviness of the chest. On examination she is very diminished. Therefore likely has significant air trapping hyperinflation them every resulting in some chest pressure sensation. I did recommend she start using the trilogy with a sip and puff during the daytime to help her with the air trapping. The patient has also gained weight and that is also going to contribute to additional respiratory symptoms. The patient needs to start working on weight management with the help of the services provided. The patient is using her diuretics with good effect. No significant edema at this time. It is not clear if she is using the theophylline. She has been on multiple medications and has got to multiple ins titutions so therefore it is hard to know if those removed and if it was stopped for particular reason. We should recheck her theophylline levels if she is on theophylline. Otherwise restart the theophylline if she is off it and then recheck levels. She should stay within the low therapeutic range to help her with her severe COPD. Patient is using her oxygen at 3 L continues with good effect. Again, I reached out to the [employer], [employer], to rete she had uses sip and puff device that she can use during the daytime 06/17/2023 the patient is here for pulmonary follow-up visit. The patient has been doing well. She is looking now to move to a skilled nursing. in the meantime she is using her noninvasive ventilator. The noninvasive ventilator has been affecting beneficial. We did have her undergo a venous blood gas in appears that her pH is stable. She understands that if she does move to a skilled nursing she went to find a way to make sure that she continues use her noninvasive ventilator as prescribed. She continues on respiratory therapy. She continues oxygen supplementation at 3 L could would response. 09/20/2023 the patient has a telehealth visit today. Unfortunately she could not make it in from her residence. She has been more depressed lately. She has recently found out that she lost the services from her [facility]. There been with her for many years. In addition to that the patient has not been using her Trelegy ventilator. She is try to find out how long she can go without it. She was wondering if she can have blood work to see how well her CO2 is while she is not using it. However, I encouraged her to use it since we know that her baseline CO2 is already elevated and by using the ventilator she has better reserved in case she develops an exacerbation or an acute illness. The patient will start using her ventilator at nighttime. I did put him for blood work and she can always have the blood work done here or she can find out another means of doing a. But getting a blood gas will be difficult to do otherwise. The patient did recently have a respiratory illness with a virus. Was not COVID. She was not giving any prednisone or antibiotics. Her cough is not too bad. If the cough worsens with worsening congestion then using a antibiotic to minimize on the postviral bacterial infections would be reasonable. 12/23/2023 the patient is here for a pulmonary follow-up visit. Since we last spoke the patient did have a fall on her [facility]. She fractured multiple ribs and was admitted to [facility] with acute on chronic hyper carbic respiratory failure. She was placed on BiPAP and was able to stabilize. She did not require invasive ventilation. The patient had not been using her noninvasive ventilator at the prison. This is unfortunate. She understands the with her condition she relies on this therapy. The patient has been using now regularly since she was discharged from the hospital. She is looking to be placed in a skilled nursing. Therefore, she is making the arrangements. We did have her undergo a venous blood gas today and her acid- base status is stable and pCO2 is back to her baseline. Her bicarbonate always will be elevated to try to compensate for the hypercarbia and right now is at 37. she does continue to use her respiratory therapy as prescribed. She is also using oxygen continuously throughout the day with good effect. Once the patient is out of the prison to a skilled nursing will see about getting pulmonary function studies and starting outpatient pulmonary rehabilitation. Also to note while she was at [facility] she did have a CT scan of the chest that was personally by me. She had multiple rib fractures on the left 1 which was displaced. Also has small subcentimeter pulmonary nodule that will follow-up in a year's time. 02/21/2024 the patient is here for pulmonary follow-up visit. The patient overall has been doing well. She did move out of the prison in currently in a skilled nursing. She is getting a lot of support. She is taking all her medications. Although, the theophylline 400 mg is not available. I will try sending her a different does see that was available and also will check theophylline levels. The patient has been using her noninvasive ventilator at nighttime. The therapy has been affecting beneficial. We did have her get blood work and it appears that her bicarb is down to 32 which is very encouraging. The patient also has been using her oxygen at 3 L continues will keep a go above 88%. The patient is able to increase it to 4 L if her oxygen is dropping below 88%. Will go ahead and request pulmonary function studies and plan for pulmonary rehabilitation at this time. Will follow-up in 3 months or sooner if any new issues arise. 05/24/2024 the patient is here for a pulmonary follow-up visit. She was recently at [facility]. There was an issue with her oxygen. Now she is back to her skilled nursing. the having hard time regulating her oxygen. We did have her come in for 6 minute walk test. The patient needs 6 L of oxygen with activity and at least 2 L at rest. Although typically she needs more than 2 to keep her pulse ox above 90%. We did review her CT scan of the chest that she had while at [facility]. She has extensive emphysema which explains her very labile oxygen requirements. In addition to that she does have some pulmonary nodules that appear to have increased in size primarily in the left hemithorax. She will need a repeat CT scan in the next 3 months. She has minimal reserve. We did look at her previous PFTs demonstrating very severe COPD and severe diffusion impairment. however, the patient has been fairly well although she has had although severe disease. She has been using her noninvasive ventilator at nighttime. At least 6 hours. We did have her go for blood work including a venous gas demonstrating appears due to a baseline 61 mm of Hg. The patient does have some lower extremity edema. She will benefit from additional diuresis. In addition to that she is having increased wheezing chest tightness and cough. Therefore will send her a prednisone taper and also start an antibiotic. This will be to treat her for COPD exacerbation. She has participating in the pulmonary rehabilitation. She has fine the very affecting beneficial. She will continue for now. 07/06/2024 the patient is here for a pulmonary follow-up visit. She has been in an out of hospital. She has been trying to use her noninvasive ventilator more regularly. She understands it is a necessity for her to use it at least every night. She also continues with respiratory therapy. She has been responding well to the oxygen supplementation. Last blood gas was back the end of May demonstrating a pCO2 around 70 which is close to her baseline. She continues with respiratory therapy with good effect. Appears to have increasing lower extremity edema. Likely secondary to a component I will call pulmonale. Needs to continue with a low sodium diet and diuresis. CXR from 06/21/23 personally reviewed by me without any acute changes. 09/13/2024 the patient has a telehealth visit today. She is status post couple hospitalizations. Now she is at rehab and this is a telehealth. The patient initially was admitted to [facility] back at the end of June with acute on chronic respiratory failure. She was diagnosed with COVID a. During that admission she did have a CT a that I did evaluate. She did have an irregular nodular density in the left upper lobe likely infectious process although since his new and she is high risk for cancer we can not rule out malignancy. She was treated and then subsequently discharged back to her skilled nursing. Subsequently after that she went to [facility]. The details are not available but she likely had a tachyarrhythmia. She did require cardioversion. Afterwards the patient was transferred to [facility] which is currently getting rehabilitation. She feels weak. She has a hard time walking. Her oxygen requirements are still about the same 3 L at rest and 6 L with activity. She is also having issues with her noninvasive ventilator which she is waking up short of breath. Therefore, will have her have a repeat 6 minute walk test while she is there she should also continue with multi disciplinary therapies in addition to that will talk to respiratory there to see if they can tweak her ventilator to a higher pressure to help her with those difficult times. The patient plans to go back to her skilled nursing. 10/22/2024 the patient is here for hospital follow-up visit. She had been in the hospital with acute on chronic hypoxic and hypercarbic respiratory failure and subsequently went to [facility]. She is currently read some. She is not going back to the skilled nursing. She is trying to feel better enough to be able to go to her daughter's. There she could have some assistance from with the family and also some medical assistance. But she is still not clear. She does use the noninvasive ventilator. She did get an placement while at rest own. She is tolerating well. Will have her get a blood gas to see what her CO2 is. In addition to that which she check her theophylline level since she has noticed some tachycardia. She continues to feel weak. She feels like her legs want to give out when she is ambulating. Strikes me that could be related to her CO2 as she has had issues with falls and weakness when her CO2 elevates. 11/15/2024 the patient is here for pulmonary follow-up visit. Since we last spoke she went to [facility] with worsening shortness of breath. There she did have a CT scan of the chest which I personally reviewed. This was done 11/02/20[address] she [address] a CT scan here at [facility] in the summer of 2023 and she had another CT scan at [facility] back in 12/17/2023. I did review all of them. She does have a left upper lobe pulmonary nodule that appears to be worsening. There is significant concerned with his nodule for a smoldering infection process such as a fungal infection could be a localized bacterial infection but could also be a malignant process. The patient understands that her lung capacity significantly limited and with end-stage pulmonary disease and we difficult to do any invasive or semi-invasive procedures for diagnostic purposes. Therefore, rather treat her empirically. Will go ahead and request blood work including galactomannan and other laboratories. And will go ahead and treat her for potential staph infection or fungal infection. Plan to repeat the CT scan a couple months. If the area still present then will have to discuss how to proceed. Again, the patient is high risk for any intervention. In the meantime she has been using the noninvasive ventilator. The ventilator has been affecting beneficial although she continues to have elevations in the CO2. Will have to adjusted accordingly. The patient also may have a component of sleep apnea and an in-lab sleep study may be helpful as well to further address any significant sleep apnea and subsequently asleep PAP titration study to properly treat her underlying sleep apnea. She will continue with current respiratory therapy as prescribed. She will continue with the oxygen as prescribed. 12/20/2024 the patient is here for a pulmonary follow-up visit. Overall she is doing well. She is moving out of bed some going with her daughter. She is excited. In the meantime she has been using her noninvasive ventilator every night. The therapy has been affecting beneficial although she feels like sometimes she wakes up breathless and sometimes her oxygen requirements are increased. We will request a download in order to be able to adjust the machine accordingly with the help of [employer]. In addition to that she was admitted briefly to [facility] with significant anemia. She was placed on iron and now she is a little constipated. She is going to monitor closely her anemia specially because of her significant respiratory disease the anemia will ultimately resulting significantly worsening respiratory symptoms. If we not able to adjust her noninvasive ventilator appropriately that we can always consider a titration study. She also had an abnormal CT scan back in October and we had requested repeat. In the meantime she went to [facility] she did have a chest x- ray which is reassuring. Demonstrating emphysema and chronic stable findings. 01/18/2025 the patient is here for a pulmonary follow-up visit. Overall she is doing better. She was sickly with flu-like symptoms but now she is back to her baseline. She is using her noninvasive ventilation at nighttime although she still trying to find the right mask. We did have a phone small air touch F20 mask available. Seems to fit well and I believe she will do better with a full mask so it does not make as much noise. The patient also has been using her respiratory therapy. I will send all her medications to the pharmacy. In addition to this the patient did have a CT scan of the chest that we personally certainly reviewed and compared to her previous CT from from June. It appears that the masslike density in the left upper lobe is getting bigger. It is concerning for malignancy specially since she was treated for fungal infections and she has been treated for infectious bacterial infections as well without any evidence of any improvement. Therefore, will go ahead and request a PET scan to see if there is any significant evidence of hypermetabolic activity. Any kind of biopsy would be dangerous because of her significant respiratory failure. We can also consider stereotactic radiation to the area if is concerning enough on the PET scan without a biopsy. Will plan to follow-up after her PET scan several weeks. 02/21/2025 the patient is here for a pulmonary follow-up visit. Overall the patient has been feeling much better from a respiratory status. She has been using her noninvasive ventilator the whole night sometimes up to 10 hours a day. This is helping her feel better overall. Her respiratory medications and regimen is seems to be stable and she is tolerating it. She is gaining weight and we did talk about that. She needs to work on portion control Lifestyle changes. In the meantime she did undergo a PET scan. We did personally review together. She did have an FDG activity of 8 of the area of the left upper lobe peripheral nodular density. Indeed is concerning. She was already treated empirically for aspergilloma and also treated with antibiotics. This area indeed is concerning for malignancy. The issue is that she does have significant chronic hypercarbic and hypoxic respiratory failure and any procedure will potentially high risk. We did talk about a CT-guided biopsy although would have to go to her breast tissue and could result in a pneumothorax and so peripheral. The other option will be navigational bronchos copy robotic bronchoscopy under general anesthesia. Which she should be able to tolerate but the anesthesia is indeed concerning for worsening perioperative complications. Will go ahead and refer her to Interventional Pulmonary to see if any interventions could be considered for her. In the meantime will go ahead and treat her with Bactrim although she has not allergy. Want to make sure we treat for smoldering infection such as Nocardia which can manifest in this form. Therefore the patient will start Bactrim I put him for CAT scan for 6 weeks from now to see those any improving the area and also she will follow-up with intervention a pulmonary. 05/08/2025 the patient is here for a pulmonary follow-up visit. The patient has been having a very busy few months. She did follow-up with Interventional Pulmonary she was diagnosed with lung cancer. Now she is following closely with oncology and radiation oncology. She is going to be starting SBRT and then after that she is going to receive chemotherapy with immune therapy. The patient is not a candidate for surgical resection because her very limited respiratory capacity. She has been using her trilogy at nighttime. The noninv asive ventilator has been affecting beneficial. However she is having hard time tolerating the pressures and she is having hard time with hypoxia. I am going to talk to [employer] to see if we can switch her over to astral and also we can adjust her pressures accordingly. The patient will continue to use her respiratory medications as prescribed. She is having some chest congestion. I do believe that Ohtuvayre would be a good addition chronic bronchitis and the fact that she will be able to use any prednisone while on immune therapy. She is going to talk about it with her daughter and the let me know if she wants me to start the process of required thin the medication. The patient will return in 6-8 weeks. If she has any issues prior to that she will call for an earlier assessment. [facility] Medical History (Updated 05/08/25 @ 16:12 by Caden Acharya MD) Lung cancer Pulmonary nodule 1 cm or greater in diameter Lung mass RITA (obstructive sleep apnea) Cor pulmonale Rib fractures Pulmonary nodule Tubular adenoma of colon (~2006) Osteopenia (~2012) Bronchopneumonia Chest pain Chronic respiratory alkalosis ILD (interstitial lung disease) CO2 retention Acute on chronic respiratory failure with hypoxia and hypercapnia Bipolar depression Eczema Limb swelling Insomnia Bronchitis Vasomotor rhinitis COPD (chronic obstructive pulmonary disease) Chronic respiratory failure Fall Acute metabolic encephalopathy Acute and chronic respiratory failure with hypercapnia Surgical History History of carpal tunnel surgery (~2000) History of ventral hernia repair (~2003) History of left inguinal hernia repair (~1995) History of tracheostomy (~2016) History of cataract surgery (~2018) History of colonoscopy Family History Other Hypertension Social History Household Members: None Household Members Other:: skilled nursing Housing: Other Housing Other:: skilled nursing Are you a primary senior care specialist to a significant other at home: No Do you presently have visiting nurse or other home services: Yes (skilled nursing services) Alcohol intake: former Patient Tobacco Use Status: Former Tobacco user Tobacco use type: Cigarette Years Smoked: 20+ years e-Cigarette/Vaping Use: Never Used Second Hand Smoke Exposure: No Advance Directives Date on File: 11/30/21 service: No Current occupational status: disabled Review of Systems Const Reports fatigue, Denies night sweats and Reports weight gain ENT Denies change in voice, Denies lip swelling, Denies mouth pain, Reports nasal congestion, Reports nasal discharge and Denies tongue swelling Card Denies chest pain, Reports pedal edema, Denies leg edema, Reports dyspnea and Reports dyspnea on exertion Resp Denies change in phlegm color, Denies chest congestion, Reports cough, Reports dyspnea, Reports dyspnea on exertion and Reports wheezing GI Denies abdominal pain Musc Denies no additional complaints, Reports abnormal gait and Reports muscle weakness Skin/Breast Reports erythema and Reports skin swelling Neuro Denies Neuro-related abnormal movements, Reports abnormal gait, Reports memory loss and Reports tremor(s) Psych Reports depression and Reports memory loss Endo Reports fatigue Gerson/Lymph Denies easy bleeding and Denies lymphadenopathy Aller/Immun Denies lip swelling, Denies tongue swelling and Reports wheezing Physical Exam Vital Signs: Last Vital Signs Pulse 63 05/08/25 11:04 BP 117/58 L 05/08/25 11:04 Pulse Ox 93 05/08/25 11:04 Oxygen Delivery Method Nasal Cannula 05/08/25 11:04 Oxygen Flow Rate 3 05/08/25 11:04 BMI result Body Mass Index 35.0 Last Vital Signs Temp 98.2 F 04/15/22 15:12 Pulse 97 04/15/22 15:26 Resp 18 04/15/22 15:26 BP 144/69 H 04/15/22 15:12 Pulse Ox 94 04/15/22 15:12 Oxygen Flow Rate 3 04/13/22 08:52 BMI result Body Mass Index 31.3 Const General: alert HEENT Head: Yes normocephalic Neck Neck: Yes normal visual inspection, Yes full ROM and Yes no lymphadenopathy Chest Chest palpation & inspection: normal inspection of the chest Resp Effort & Inspection: normal respiratory effort and prolonged expiratory phase Auscultation: diminished lung sounds Cardio Rate: regular rate Rhythm: regular rhythm Heart sounds: S1 normal heart sound present and S2 normal heart sound present GI Palpation (GI): Soft to palpation and nontender Auscultation: normal bowel sounds Skin General skin exam: rashes and/or lesions noted Assessment & Plan Assessment & Plan (1) COPD (chronic obstructive pulmonary disease): Code(s): J44.9 - Chronic obstructive pulmonary disease, unspecified Category: Medical Qualifiers: COPD type: emphysema Emphysema type: centrilobular Qualified Code(s): J43.2 - Centrilobular emphysema (2) Pulmonary nodule: Comment: increasing in size CELINA concerning for malignancy of local infection. High risk for any diagnostic interventions Code(s): R91.1 - Solitary pulmonary nodule Category: Medical (3) Chronic respiratory failure: Code(s): J96.10 - Chronic respiratory failure, unspecified whether with hypoxia or hypercapnia Category: Medical Qualifiers: Respiratory failure complication: hypoxia and hypercapnia Qualified Code(s): J96.11 - Chronic respiratory failure with hypoxia; J96.12 - Chronic respiratory failure with hypercapnia (4) Insomnia: Code(s): G47.00 - Insomnia, unspecified Category: Medical Qualifiers: Insomnia type: primary Qualified Code(s): F51.01 - Primary insomnia (5) Respiratory failure: Code(s): J96.90 - Respiratory failure, unspecified, unspecified whether with hypoxia or hypercapnia Category: Medical Qualifiers: Chronicity: chronic Respiratory failure complication: hypoxia and hypercapnia Qualified Code(s): J96.11 - Chronic respiratory failure with hypoxia; J96.12 - Chronic respiratory failure with hypercapnia (6) Chronic hypoxic respiratory failure: Code(s): J96.11 - Chronic respiratory failure with hypoxia Category: Medical (7) RITA (obstructive sleep apnea): Code(s): G47.33 - Obstructive sleep apnea (adult) (pediatric) Category: Medical (8) Lung cancer: Code(s): C34.90 - Malignant neoplasm of unspecified part of unspecified bronchus or lung Category: Medical Qualifiers: Laterality: left Lung location: unspecified part of lung Qualified Code(s): C34.92 - Malignant neoplasm of unspecified part of left bronchus or lung Plan continue nighttime noninvasive ventilator use. Will request changing to Astral. Also, will adjust pressures start SBRT and chemo/immune therapy continue Breo continue Incruse continue respiratory therapy start Ohtuvayre once the pt reviews the info and agrees to start oxygen at 3 liters/minute at rest and 6L/minute weight management F/U 6-8 weeks Coding Level of Care Code New Pt Level 5 (00420) Complex EM visit Add On G2211 Diagnoses Centrilobular emphysema J43.2 COPD type: emphysema Emphysema type: centrilobular Pulmonary nodule R91.1 Chronic respiratory failure with hypoxia and hypercapnia J96.11; J96.12 Respiratory failure complication: hypoxia and hypercapnia Primary insomnia F51.01 Insomnia type: primary Chronic respiratory failure with hypoxia and hypercapnia J96.11; J96.12 Chronicity: chronic Respiratory failure complication: hypoxia and hypercapnia Chronic hypoxic respiratory failure J96.11 RITA (obstructive sleep apnea) G47.33 Malignant neoplasm of left lung, unspecified part of lung C34.92 Laterality: left Lung location: unspecified part of lung Time Spent (min) 60
[2025-05-08 11:04] VITALS: BP 117/58; PULSE 63; O2SAT 93; BMI 35.0
--- OUTSIDE RECORDS SUMMARY | 2025-05-08 12:38 | XMS_ITS | Encounter Summary ---
Author Organization [facility] Address [address] [place] [address] Care Team Providers Care Oyster Shucker Name Role Phone Kinjal Barron SENIOR DATA SCIENTIST Primary Care Provid er Encounter Details Date Type Department Care Team (Late Contact Info) Description 10/27/2024 Lab Requisition [facility] - Main Lab [address] [facility] [place] [phone] Janice Núñez MD [address] [facility] [address] [place] [address] Chronic obstructive pulmonary disease, unspecified (CMS/HCC V24, CMS/HCC V28) Social History Tobacco Use Types Packs/Day Years Used Date Smoking Tobacco: Former Cigarettes Smokeless Tobacco: Never Alcohol Use Standard Drinks/Week Comments Not Currently 0 (1 standard drink = 0.6 oz pur e alcohol) Comments Unknown Sex and Gender Information Value Date Recorded Sex Assigned at Female 03/07/2025 9:10 AM EDT Legal Sex Female 9:53 PM EST Gender Identity Female 03/07/2025 9:10 AM EDT Sexual Orientation Straight 03/07/2025 9: 10 AM EDT documented as of this encounter Plan of Treatment Upcoming Encounters Date Type Department Care Team (Late Contact Info) Description 05/14/2025 1:15 PM EDT Appointment [facility] Radiation Oncology [address] [place] [phone] 05/14/2025 2:00 PM EDT Appointment [facility] Radiation Oncology [address] [place] [phone] Katya Barnes MD [address] [place] [address] 05/24/2025 10:30 AM EDT Office Visit [facility] Hematology Oncology [address] [place] [phone] Lashanda Mcgill DO [address] [place] [address] documented as of this encounter Procedures Procedure [...] mmol/L LAB CHEMISTRY METHOD 10/29/2024 2:01 PM EST [facility] Potassium 3.6 3.5 - 5.5 [...] Resul t [facility] [address] [place] [address], * (ABNORMAL) Complete blood count (10/29/2024 8:00 AM EST) WBC 6.3 4.8 - 10.8 K/mcL LAB HEMETOLOGY METHOD 10/29/2024 12:10 PM [facility] RBC 3.70(L) 3.80 - 4.80 M/mcL LAB HEMETOLOGY METHOD 10/29/2024 12:10 PM [facility] Hemoglobin 10.1(L) 11.5 - 16.0 g/dL LAB HEMETOLOGY METHOD 10/29/2024 12:10 PM [facility] Hematocrit 35.2 35.0 - 47.0 % LAB HEMETOLOGY METHOD 10/29/2024 12:10 PM [facility] MCV 94.1 79.0 - 98.0 FL LAB HEMETOLOGY METHOD 10/29/2024 12:10 PM [facility] MCH 27.0 27.0 - 32.0 pcg LAB HEMETOLOGY METHOD 10/29/2024 12:10 PM [facility] MCHC 28.7(L) 32.0 - 37.0 g/dL LAB HEMETOLOGY METHOD 10/29/2024 12:10 PM [facility] RDW 14.5 11.0 - [...] 12:10 PM [facility] NRBC Absolute 0.00 <0.10 K/mcL LAB HEMETOLOGY METHOD 10/29/2024 12:10 PM [facility] Blood Venous blood specimen / Unknown Venipuncture / Unknown 10/29/2024 8:00 AM EST 10/29/2024 11:30 AM EST us Janice Núñez MD LAB BLOOD ORDERABLES Final Resul t [facility] [address] [place] [address], documented in this encounter Visit Diagnoses Diagnosis Chronic obstructive pulmonary disease, unspecified (CMS/HCC V24, CMS/[facility] V28) documented in this encounter Additional Health Concerns Infection Onset Date Last Indicated Resolved Time Tuberculosis Rule-Out 04/03/2025 04/03/20252024 3:00 PM EDT documented as of this encounter Care Teams Oyster Shucker Relationship Specialty Start Date End Date Kinjal Barron FNP [address] [place] [phone] PCP - General Family Medicine 03/06/25 documented as of this encounter
== END 2025-05-08 11:41 | disposition home or self-care (01) ==
LOC: HO.HPS 11:03
PROVIDERS: PCP Student in an Organized Health Care Education/Training Program; Visit Provider Hospitalist
DX: J43.2 Centrilobular emphysema (principal); R91.1 Solitary pulmonary nodule; J96.11 Chronic respiratory failure with hypoxia; J96.12 Chronic respiratory failure with hypercapnia; F51.01 Primary insomnia; G47.33 Obstructive sleep apnea (adult) (pediatric); C34.92 Malignant neoplasm of unspecified part of left bronchus or lung
CPT/HCPCS: 99215; G2211

== ENCOUNTER → 2025-05-08 11:02 | Outpatient (BNVA) | payer OTHER, SELFPAY | PROVIDERS: PCP Student in an Organized Health Care Education/Training Program; Visit Provider Hospitalist | DX: J43.2 Centrilobular emphysema (principal); C34.92 Malignant neoplasm of unspecified part of left bronchus or lung; J96.11 Chronic respiratory failure with hypoxia; J96.12 Chronic respiratory failure with hypercapnia; R91.1 Solitary pulmonary nodule; G47.33 Obstructive sleep apnea (adult) (pediatric); F51.01 Primary insomnia; Z99.11 Dependence on respirator [ventilator] status; Z99.81 Dependence on supplemental oxygen | CPT/HCPCS: 99212 ==

== ENCOUNTER 2025-06-26 10:51 | Outpatient (REF) | payer OTHER, SELFPAY ==
--- NOTE | ~2025-06-26 | XR_ITS ---
EXAMINATION: XR CHEST 2 VIEWS HISTORY: J43.2 - Centrilobular emphysema COMPARISON: Comparison is made with the prior examination dated 10/03/2024. Correlation is also made with a chest CT dated 01/08/2025 and outside PET/CT scan dated 02/08/2025. FINDINGS: PA and lateral views of the chest are submitted. The lungs are hyperinflated, consistent with COPD. There is a mass in the left upper lobe which was previously evaluated by chest CT] PET/CT scan. A clip is seen in the mass, likely from prior biopsy. There are multifocal linear opacities in both lungs which may be due to emphysema. There is no pleural effusion, pneumothorax, or pulmonary vascular congestion. The heart is normal in size. There are multiple chronic bilateral rib fractures. There is degenerative disc disease of the spine. XR/XR chest 2V IMPRESSION: COPD. Known left upper lobe mass. Bilateral linear opacities may be secondary to emphysema. Electronically signed by: Amandeep Murphy MD 06/26/2025 12:43 PM EDT
[2025-06-26 12:12] LABS: MANUAL DIFF FLAG NO
[2025-06-26 12:18] LABS: Venous Blood Gas Refer to POC result
[2025-06-26 12:31] LABS: VBG HCO3 54 mmol/L (22-26); VBG O2 % Saturation 100.0 %
[2025-06-26 12:45] LABS: Hematocrit 35.4 % (37.0-47.0); Hemoglobin 10.6 g/dl (12.0-16.0); Imm Gran Abs Auto 0.07 X10*3/uL (0.00-0.03); Imm Gran Pct Auto 1.1 % (0.0-0.4); Lymphocytes Absolute Auto 0.3 X10*3/uL (1.2-4.9); Mean Corpuscular HGB Conc 29.9 g/dl (31.0-35.0); Mean Corpuscular Hemoglobin 28.3 pg (27.0-33.0); Mean Corpuscular Volume 94.4 fL (80.0-98.0); NRBC Abs Auto 0.000 X10*3/uL (0.0-0.012); NRBC Pct Auto 0.0 /100WBC (0.0-0.2); Platelet Count 290 X10*3/uL (160-400); Red Blood Count 3.75 X10*6/uL (4.20-5.50); White Blood Count 6.5 X10*3/uL (4.8-10.8)
[2025-06-26 12:52] LABS: D Dimer High Sensitivity 202 NG/ML
[2025-06-26 13:22] LABS: Anion Gap 13 (12-20); Blood Urea Nitrogen 15 mg/dL (9-16); Calcium 10.4 mg/dL (8.4-10.2); Carbon Dioxide 44 mmol/L (22-29); Chloride 93 mmol/L (96-108); Estimated Glomerular Filt Rate > 60; Potassium 4.5 mmol/L (3.3-5.1); Sodium 145 mmol/L (135-145)
== END 2025-06-26 10:52 | disposition home or self-care (01) ==
LOC: HO.LAB 10:51
PROVIDERS: PCP Nurse Practitioner Family; Visit Provider Hospitalist
DX: J43.2 Centrilobular emphysema (principal); J96.12 Chronic respiratory failure with hypercapnia; J96.11 Chronic respiratory failure with hypoxia; C34.92 Malignant neoplasm of unspecified part of left bronchus or lung; F51.01 Primary insomnia; G47.33 Obstructive sleep apnea (adult) (pediatric); J96.21 Acute and chronic respiratory failure with hypoxia; J96.22 Acute and chronic respiratory failure with hypercapnia; R91.1 Solitary pulmonary nodule; Z99.11 Dependence on respirator [ventilator] status; Z87.891 Personal history of nicotine dependence; Z79.899 Other long term (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 therapy
CPT/HCPCS: 36415; 71046; 80048; 82803; 85025; 85379; 85652; 99212

== ENCOUNTER 2025-06-26 10:51 | Outpatient (AMB) | payer OTHER, SELFPAY ==
[2025-06-26 11:06] VITALS: BP 144/64; PULSE 67; O2SAT 94; BMI 36.2
--- NOTE | 2025-06-26 11:06 | MHC.OFFVIS ---
Vital Signs 06/26/25 11:06 Height 5 ft 1 in Weight 191 lb 12.835 oz BMI 36.2 BP 144/64 H Blood Pressure Location Lt brachial Position Sitting Pulse 67 Pulse Source Pulse Oximeter Pulse Oximetry (%) 94 Oxygen Delivery Method Nasal Cannula Oxygen Flow Rate 3 Intake Visit Reasons: COPD Can Conveyor Feeder Required: No Allergies codeine (Codeine) Allergy (Intermediate, Verified 06/26/25 11:10) RESTLESS/RASH haloperidol (Haldol) Allergy (Intermediate, Verified 06/26/25 11:10) Palpitations Sulfa (Sulfonamide Antibiotics) Allergy (Intermediate, Verified 06/26/25 11:10) HIVES HPI Comments Details: The patient is a 69-year-old woman with known history of COPD and chronic hypoxic and hypercarbic respiratory failure. She 1st did require a tracheostomy in the past and she had a prolonged hospitalization which she was able to be decannulated. She was then placed on noninvasive ventilation. The patient has been inconsistent with the usage. In January of this year the patient was admitted to the hospital with acute on chronic hypercarbic respiratory failure where her pCO2 was about 118 mmHg.. The patient was placed on noninvasive ventilation and her pH normalize and her average pCO2 was between 60-70. She was discharged to use her trilogy at home. At home she is still struggling with the noninvasive ventilator. She has a hard time getting used to it. Her [email or web address] company, [employer] will be performing overnight oximetry with an end-tidal CO2 to measure her see you to into appropriately adjust her noninvasive ventilator. She also has made mentioning that she has been more short of breath and she has had more hypoxia. In the office we did perform a 6 minutes walk test and she did require 2 L nasal cannula to maintain her pulse ox above 90%. Therefore, she will be using 3 L instead of to with activity and also with sleep. 04/15/2023 the patient is here for pulmonary follow-up visit. She still residing at the [facility]. She is using her trilogy noninvasive ventilator every night. However, she has been using more recently because she ended up in the hospital. She was having chest pressure sensation and dizziness. During the hospitalization at [facility] the patient states that she had an ABG done demonstrating a pCO2 58 and per report was okay. Therefore, will hold off on doing an ABG today. The patient has been fairly relatively well from a respiratory status. She does complaint of heaviness of the chest. On examination she is very diminished. Therefore likely has significant air trapping hyperinflation them every resulting in some chest pressure sensation. I did recommend she start using the trilogy with a sip and puff during the daytime to help her with the air trapping. The patient has also gained weight and that is also going to contribute to additional respiratory symptoms. The patient needs to start working on weight management with the help of the services provided. The patient is using her diuretics with good effect. No significant edema at this time. It is not clear if she is using the theophylline. She has been on multiple medications and has got to multiple institutions so therefore it is hard to know if those removed and if it was stopped for particular reason. We should recheck her theophylline levels if she is on theophylline. Otherwise restart the theophylline if she is off it and then recheck levels. She should stay within the low therapeutic range to help her with her severe COPD. Patient is using her oxygen at 3 L continues with good effect. Again, I reached out to the [employer], to rete she had uses sip and puff device that she can use during the daytime 06/17/2023 the patient is here for pulmonary follow-up visit. The patient has been doing well. She is looking now to move to a jail. in the meantime she is using her noninvasive ventilator. The noninvasive ventilator has been affecting beneficial. We did have her undergo a venous blood gas in appears that her pH is stable. She understands that if she does move to a jail she went to find a way to make sure that she continues use her noninvasive ventilator as prescribed. She continues on respiratory therapy. She continues oxygen supplementation at 3 L could would response. 09/20/2023 the patient has a telehealth visit today. Unfortunately she could not make it in from her residence. She has been more depressed lately. She has recently found out that she lost the services from her [facility]. There been with her for many years. In addition to that the patient has not been using her Trelegy ventilator. She is try to find out how long she can go without it. She was wondering if she can have blood work to see how well her CO2 is while she is not using it. However, I encouraged her to use it since we know that her baseline CO2 is already elevated and by using the ventilator she has better reserved in case she develops an exacerbation or an acute illness. The patient will start using her ventilator at nighttime. I did put him for blood work and she can always have the blood work done here or she can find out another means of doing a. But getting a blood gas will be difficult to do otherwise. The patient did recently have a respiratory illness with a virus. Was not COVID. She was not giving any prednisone or antibiotics. Her cough is not too bad. If the cough worsens with worsening congestion then using a antibiotic to minimize on the postviral bacterial infections would be reasonable. 12/23/2023 the patient is here for a pulmonary follow-up visit. Since we last spoke the patient did have a fall on her care home. She fractured multiple ribs and was admitted to [facility] with acute on chronic hypercarbic respiratory failure. She was placed on BiPAP and was able to stabilize. She did not require invasive ventilation. The patient had not been using her noninvasive ventilator at the care home. This is unfortunate. She understands the with her condition she relies on this therapy. The patient has been using now regularly since she was discharged from the hospital. She is looking to be placed in a jail. Therefore, she is making the arrangements. We did have her undergo a venous blood gas today and her acid-base status is stable and pCO2 is back to her baseline. Her bicarbonate always will be elevated to try to compensate for the hypercarbia and right now is at 37. she does continue to use her respiratory therapy as prescribed. She is also using oxygen continuously throughout the day with good effect. Once the patient is out of the care home to a jail will see about getting pulmonary function studies and starting outpatient pulmonary rehabilitation. Also to note while she was at [facility] she did have a CT scan of the chest that was personally by me. She had multiple rib fractures on the left 1 which was displaced. Also has small subcentimeter pulmonary nodule that will follow-up in a year's time. 02/21/2024 the patient is here for pulmonary follow-up visit. The patient overall has been doing well. She did move out of the care home in currently in a jail. She is getting a lot of support. She is taking all her medications. Although, the theophylline 400 mg is not available. I will try sending her a different does see that was available and also will check theophylline levels. The patient has been using her noninvasive ventilator at nighttime. The therapy has been affecting beneficial. We did have her get blood work and it appears that her bicarb is down to 32 which is very encouraging. The patient also has been using her oxygen at 3 L continues will keep a go above 88%. The patient is able to increase it to 4 L if her oxygen is dropping below 88%. Will go ahead and request pulmonary function studies and plan for pulmonary rehabilitation at this time. Will follow-up in 3 months or sooner if any new issues arise. 05/24/2024 the patient is here for a pulmonary follow-up visit. She was recently at [facility]. There was an issue with her oxygen. Now she is back to her jail. the having hard time regulating her oxygen. We did have her come in for 6 minute walk test. The patient needs 6 L of oxygen with activity and at least 2 L at rest. Although typically she needs more than 2 to keep her pulse ox above 90%. We did review her CT scan of the chest that she had while at [facility]. She has extensive emphysema which explains her very labile oxygen requirements. In addition to that she does have some pulmonary nodules that appear to have increased in size primarily in the left hemithorax. She will need a repeat CT scan in the next 3 months. She has minimal reserve. We did look at her previous PFTs demonstrating very severe COPD and severe diffusion impairment. however, the patient has been fairly well although she has had although severe disease. She has been using her noninvasive ventilator at nighttime. At least 6 hours. We did have her go for blood work including a venous gas demonstrating appears due to a baseline 61 mm of Hg. The patient does have some lower extremity edema. She will benefit from additional diuresis. In addition to that she is having increased wheezing chest tightness and cough. Therefore will send her a prednisone taper and also start an antibiotic. This will be to treat her for COPD exacerbation. She has participating in the pulmonary rehabilitation. She has fine the very affecting beneficial. She will continue for now. 07/06/2024 the patient is here for a pulmonary follow-up visit. She has been in an out of hospital. She has been trying to use her noninvasive ventilator more regularly. She understands it is a necessity for her to use it at least every night. She also continues with respiratory therapy. She has been responding well to the oxygen supplementation. Last blood gas was back the end of May demonstrating a pCO2 around 70 which is close to her baseline. She continues with respiratory therapy with good effect. Appears to have increasing lower extremity edema. Likely secondary to a component I will call pulmonale. Needs to continue with a low sodium diet and diuresis. CXR from 06/21/23 personally reviewed by me without any acute changes. 09/13/2024 the patient has a telehealth visit today. She is status post couple hospitalizations. Now she is at rehab and this is a telehealth. The patient initially was admitted to [facility] back at the end of June with acute on chronic respiratory failure. She was diagnosed with COVID a. During that admission she did have a CT a that I did evaluate. She did have an irregular nodular density in the left upper lobe likely infectious process although since his new and she is high risk for cancer we can not rule out malignancy. She was treated and then subsequently discharged back to her jail. Subsequently after that she went to [facility]. The details are not available but she likely had a tachyarrhythmia. She did require cardioversion. Afterwards the patient was transferred to [facility] which is currently getting rehabilitation. She feels weak. She has a hard time walking. Her oxygen requirements are still about the same 3 L at rest and 6 L with activity. She is also having issues with her noninvasive ventilator which she is waking up short of breath. Therefore, will have her have a repeat 6 minute walk test while she is there she should also continue with multi disciplinary therapies in addition to that will talk to respiratory there to see if they can tweak her ventilator to a higher pressure to help her with those difficult times. The patient plans to go back to her jail. 10/22/2024 the patient is here for hospital follow-up visit. She had been in the hospital with acute on chronic hypoxic and hypercarbic respiratory failure and subsequently went to [facility]. She is currently read some. She is not going back to the jail. She is trying to feel better enough to be able to go to her daughter's. There she could have some assistance from with the family and also some medical assistance. But she is still not clear. She does use the noninvasive ventilator. She did get an placement while at rest own. She is tolerating well. Will have her get a blood gas to see what her CO2 is. In addition to that which she check her theophylline level since she has noticed some tachycardia. She continues to feel weak. She feels like her legs want to give out when she is ambulating. Strikes me that could be related to her CO2 as she has had issues with falls and weakness when her CO2 elevates. 11/15/2024 the patient is here for pulmonary follow-up visit. Since we last spoke she went to [facility] with worsening shortness of breath. There she did have a CT scan of the chest which I personally reviewed. This was done 11/02/2024 she also had a CT scan here at [facility] in the summer of 2023 and she had another CT scan at [facility] in 12/17/2023. I did review all of them. She does have a left upper lobe pulmonary nodule that appears to be worsening. There is significant concerned with his nodule for a smoldering infection process such as a fungal infection could be a localized bacterial infection but could also be a malignant process. The patient understands that her lung capacity significantly limited and with end-stage pulmonary disease and we difficult to do any invasive or semi-invasive procedures for diagnostic purposes. Therefore, rather treat her empirically. Will go ahead and request blood work including galactomannan and other laboratories. And will go ahead and treat her for potential staph infection or fungal infection. Plan to repeat the CT scan a couple months. If the area still present then will have to discuss how to proceed. Again, the patient is high risk for any intervention. In the meantime she has been using the noninvasive ventilator. The ventilator has been affecting beneficial although she continues to have elevations in the CO2. Will have to adjusted accordingly. The patient also may have a component of sleep apnea and an in-lab sleep study may be helpful as well to further address any significant sleep apnea and subsequently asleep PAP titration study to properly treat her underlying sleep apnea. She will continue with current respiratory therapy as prescribed. She will continue with the oxygen as prescribed. 12/20/2024 the patient is here for a pulmonary follow-up visit. Overall she is doing well. She is moving out of bed some going with her daughter. She is excited. In the meantime she has been using her noninvasive ventilator every night. The therapy has been affecting beneficial although she feels like sometimes she wakes up breathless and sometimes her oxygen requirements are increased. We will request a download in order to be able to adjust the machine accordingly with the help of [employer]. In addition to that she was admitted briefly to [facility] with significant anemia. She was placed on iron and now she is a little constipated. She is going to monitor closely her anemia specially because of her significant respiratory disease the anemia will ultimately resulting significantly worsening respiratory symptoms. If we not able to adjust her noninvasive ventilator appropriately that we can always consider a titration study. She also had an abnormal CT scan back in October and we had requested repeat. In the meantime she went to [facility] she did have a chest x-ray which is reassuring. Demonstrating emphysema and chronic stable findings. 01/18/2025 the patient is here for a pulmonary follow-up visit. Overall she is doing better. She was sickly with flu-like symptoms but now she is back to her baseline. She is using her noninvasive ventilation at nighttime although she still trying to find the right mask. We did have a phone small air touch F20 mask available. Seems to fit well and I believe she will do better with a full mask so it does not make as much noise. The patient also has been using her respiratory therapy. I will send all her medications to the pharmacy. In addition to this the patient did have a CT scan of the chest that we personally certainly reviewed and compared to her previous CT from from June. It appears that the masslike density in the left upper lobe is getting bigger. It is concerning for malignancy specially since she was treated for fungal infections and she has been treated for infectious bacterial infections as well without any evidence of any improvement. Therefore, will go ahead and request a PET scan to see if there is any significant evidence of hypermetabolic activity. Any kind of biopsy would be dangerous because of her significant respiratory failure. We can also consider stereotactic radiation to the area if is concerning enough on the PET scan without a biopsy. Will plan to follow-up after her PET scan several weeks. 02/21/2025 the patient is here for a pulmonary follow-up visit. Overall the patient has been feeling much better from a respiratory status. She has been using her noninvasive ventilator the whole night sometimes up to 10 hours a day. This is helping her feel better overall. Her respiratory medications and regimen is seems to be stable and she is tolerating it. She is gaining weight and we did talk about that. She needs to work on portion control Lifestyle changes. In the meantime she did undergo a PET scan. We did personally review together. She did have an FDG activity of 8 of the area of the left upper lobe peripheral nodular density. Indeed is concerning. She was already treated empirically for aspergilloma and also treated with antibiotics. This area indeed is concerning for malignancy. The issue is that she does have significant chronic hypercarbic and hypoxic respiratory failure and any procedure will potentially high risk. We did talk about a CT-guided biopsy although would have to go to her breast tissue and could result in a pneumothorax and so peripheral. The other option will be navigational bronchoscopy robotic bronchoscopy under general anesthesia. Which she should be able to tolerate but the anesthesia is indeed concerning for worsening perioperative complications. Will go ahead and refer her to Interventional Pulmonary to see if any interventions could be considered for her. In the meantime will go ahead and treat her with Bactrim although she has not allergy. Want to make sure we treat for smoldering infection such as Nocardia which can manifest in this form. Therefore the patient will start Bactrim I put him for CAT scan for 6 weeks from now to see those any improving the area and also she will follow-up with intervention a pulmonary. 05/08/2025 the patient is here for a pulmonary follow-up visit. The patient has been having a very busy few months. She did follow-up with Interventional Pulmonary she was diagnosed with lung cancer. Now she is following closely with oncology and radiation oncology. She is going to be starting SBRT and then after that she is going to receive chemotherapy with immune therapy. The patient is not a candidate for surgical resection because her very limited respiratory capacity. She has been using her trilogy at nighttime. The noninvasive ventilator has been affecting beneficial. However she is having hard time tolerating the pressures and she is having hard time with hypoxia. I am going to talk to [employer] to see if we can switch her over to astral and also we can adjust her pressures accordingly. The patient will continue to use her respiratory medications as prescribed. She is having some chest congestion. I do believe that Ohtuvayre would be a good addition chronic bronchitis and the fact that she will be able to use any prednisone while on immune therapy. She is going to talk about it with her daughter and the let me know if she wants me to start the process of required thin the medication. The patient will return in 6-8 weeks. If she has any issues prior to that she will call for an earlier assessment. 06/26/2025 the patient is here for a pulmonary follow-up visit. She is status post SBRT. She has had issues with radiation pneumonitis. The patient has been on prednisone currently at 15 mg. She continues use her respiratory therapy and also her oxygen supplementation up to 6 L with activity. Although, even on the 6 L she is still desaturating down to the low 80s if not high 70s. She is also using the oxygen with her noninvasive ventilator, trilogy at nighttime. She is still having issues with the pressures are so high that is pushing the mask off her face. Makes it very uncomfortable for her to use. I did reach out to her [email or web address] company, [employer] and did send some adjustments decreasing her tidal volume increasing her maximum pressure is and also increasing the respiratory rate to try to maintain a certain minute ventilation. Will have her get blood work today. In view of her significant hypoxia will have to rule out possibility of radiation pneumonitis but also other conditions such as thromboembolic disease specially with her lung cancer she is a high risk for blood clots. The patient also did have a walking oximetry and she did require up to 6 L with activity. Will adjust her medications accordingly based on her x-ray and blood work. In the meantime she is waiting to get stabilized to be able to get a port in order to start chemotherapy. I am concerned with the degree of respiratory failure any procedure will be high risk. [facility] Medical History (Updated 06/26/25 @ 14:19 by Caden Acharya MD) Lung cancer Pulmonary nodule 1 cm or greater in diameter Lung mass RITA (obstructive sleep apnea) Cor pulmonale Rib fractures Pulmonary nodule Tubular adenoma of colon (~2006) Osteopenia (~2012) Bronchopneumonia Chest pain Chronic respiratory alkalosis ILD (interstitial lung disease) CO2 retention Acute on chronic respiratory failure with hypoxia and hypercapnia Bipolar depression Eczema Limb swelling Insomnia Bronchitis Vasomotor rhinitis COPD (chronic obstructive pulmonary disease) Chronic respiratory failure Fall Acute metabolic encephalopathy Acute and chronic respiratory failure with hypercapnia Surgical History History of carpal tunnel surgery (~2000) History of ventral hernia repair (~2003) History of left inguinal hernia repair (~1995) History of tracheostomy (~2016) History of cataract surgery (~2018) History of colonoscopy Family History Other Hypertension Social History Household Members: None Household Members Other:: jail Housing: Other Housing Other:: jail Are you a primary care professional to a significant other at home: No Do you presently have visiting nurse or other home services: Yes (jail services) Alcohol intake: former Patient Tobacco Use Status: Former Tobacco user Tobacco use type: Cigarette Years Smoked: 20+ years e-Cigarette/Vaping Use: Never Used Second Hand Smoke Exposure: No Advance Directives Date on File: 11/30/21 service: No Current occupational status: disabled Review of Systems Const Reports fatigue, Denies night sweats and Reports weight gain ENT Denies change in voice, Denies lip swelling, Denies mouth pain, Reports nasal congestion, Reports nasal discharge and Denies tongue swelling Card Denies chest pain, Reports pedal edema, Reports dyspnea and Reports dyspnea on exertion Resp Denies change in phlegm color, Denies chest congestion, Reports cough, Reports dyspnea, Reports dyspnea on exertion and Reports wheezing GI Denies abdominal pain Musc Denies no additional complaints, Reports abnormal gait and Reports muscle weakness Skin/Breast Reports erythema and Reports skin swelling Neuro Denies Neuro-related abnormal movements, Reports abnormal gait, Reports memory loss and Reports tremor(s) Psych Reports depression and Reports memory loss Endo Reports fatigue Gerson/Lymph Denies easy bleeding and Denies lymphadenopathy Aller/Immun Denies lip swelling, Denies tongue swelling and Reports wheezing Physical Exam Vital Signs: Last Vital Signs Pulse 67 06/26/25 11:06 BP 144/64 H 06/26/25 11:06 Pulse Ox 94 06/26/25 11:06 Oxygen Delivery Method Nasal Cannula 06/26/25 11:06 Oxygen Flow Rate 3 06/26/25 11:06 BMI result Body Mass Index 36.2 Last Vital Signs Temp 98.2 F 04/15/22 15:12 Pulse 97 04/15/22 15:26 Resp 18 04/15/22 15:26 BP 144/69 H 04/15/22 15:12 Pulse Ox 94 04/15/22 15:12 Oxygen Flow Rate 3 04/13/22 08:52 BMI result Body Mass Index 31.3 Const General: alert HEENT Head: Yes normocephalic Neck Neck: Yes normal visual inspection, Yes full ROM and Yes no lymphadenopathy Chest Chest palpation & inspection: normal inspection of the chest Resp Effort & Inspection: normal respiratory effort and prolonged expiratory phase Auscultation: rales and diminished lung sounds Cardio Rate: regular rate Rhythm: regular rhythm Heart sounds: S1 normal heart sound present and S2 normal heart sound present GI Palpation (GI): Soft to palpation and nontender Auscultation: normal bowel sounds Skin General skin exam: rashes and/or lesions noted Assessment & Plan Assessment & Plan (1) COPD (chronic obstructive pulmonary disease): Code(s): J44.9 - Chronic obstructive pulmonary disease, unspecified Category: Medical Qualifiers: COPD type: emphysema Emphysema type: centrilobular Qualified Code(s): J43.2 - Centrilobular emphysema (2) Pulmonary nodule: Comment: increasing in size CELINA concerning for malignancy of local infection. High risk for any diagnostic interventions Code(s): R91.1 - Solitary pulmonary nodule Category: Medical (3) Chronic respiratory failure: Code(s): J96.10 - Chronic respiratory failure, unspecified whether with hypoxia or hypercapnia Category: Medical Qualifiers: Respiratory failure complication: hypoxia and hypercapnia Qualified Code(s): J96.11 - Chronic respiratory failure with hypoxia; J96.12 - Chronic respiratory failure with hypercapnia (4) Insomnia: Code(s): G47.00 - Insomnia, unspecified Category: Medical Qualifiers: Insomnia type: primary Qualified Code(s): F51.01 - Primary insomnia (5) Respiratory failure: Code(s): J96.90 - Respiratory failure, unspecified, unspecified whether with hypoxia or hypercapnia Category: Medical Qualifiers: Chronicity: chronic Respiratory failure complication: hypoxia and hypercapnia Qualified Code(s): J96.11 - Chronic respiratory failure with hypoxia; J96.12 - Chronic respiratory failure with hypercapnia (6) RITA (obstructive sleep apnea): Code(s): G47.33 - Obstructive sleep apnea (adult) (pediatric) Category: Medical (7) Lung cancer: Code(s): C34.90 - Malignant neoplasm of unspecified part of unspecified bronchus or lung Category: Medical Qualifiers: Laterality: left Lung location: unspecified part of lung Qualified Code(s): C34.92 - Malignant neoplasm of unspecified part of left bronchus or lung (8) Acute and chronic respiratory failure: Code(s): J96.20 - Acute and chronic respiratory failure, unspecified whether with hypoxia or hypercapnia Category: Medical Qualifiers: Respiratory failure complication: hypoxia and hypercapnia Qualified Code(s): J96.21 - Acute and chronic respiratory failure with hypoxia; J96.22 - Acute and chronic respiratory failure with hypercapnia Plan Worsening hypoxic/hypercarbic respiratory failure, likely volume overload. Will treat, but if worsens will need to go to the ED continue noninvasive ventilator use. Will increase 10->12hrs. ? changing to Astral. Also, will adjust pressures. Sent rx to [facility]. completed SBRT and chemo/immune therapy continue Breo continue Incruse increase Prednisone 15->20mg daily Increase diuresis Lasix x 3 days start diamox 125mg PO x 3 days start Doxycycline Awaiting Ohtuvayre once the pt reviews the info and agrees to start oxygen at 3 liters/minute at rest and 6L/minute weight management F/U 6-8 weeks Orders: Orders Basic Metabolic Panel Today J43.2 - Centrilobular emphysema, J96.11 - Chronic respiratory failure with hypoxia, J96.12 - Chronic respiratory failure with hypercapnia Complete Blood Count Auto Diff Today J43.2 - Centrilobular emphysema, J96.11 - Chronic respiratory failure with hypoxia, J96.12 - Chronic respiratory failure with hypercapnia D Dimer High Sensitivity Today J43.2 - Centrilobular emphysema, J96.11 - Chronic respiratory failure with hypoxia, J96.12 - Chronic respiratory failure with hypercapnia Venous Blood Gas Today J43.2 - Centrilobular emphysema, J96.11 - Chronic respiratory failure with hypoxia, J96.12 - Chronic respiratory failure with hypercapnia Erythrocyte Sedimentation Rate Today J43.2 - Centrilobular emphysema, J96.11 - Chronic respiratory failure with hypoxia, J96.12 - Chronic respiratory failure with hypercapnia XR chest 2V Today J43.2 - Centrilobular emphysema, J96.11 - Chronic respiratory failure with hypoxia, J96.12 - Chronic respiratory failure with hypercapnia Medications: New furosemide (Lasix) 20 mg PO DAILY PRN 14 tabs 1RF edema 30 days acetazolamide 125 mg PO DAILY 3 tabs 0RF 3 days doxycycline monohydrate 100 mg PO BID 28 tabs 0RF 14 days Coding Level of Care Code Est Pt Level 5 (03564) Complex EM visit Add On G2211 Diagnoses Centrilobular emphysema J43.2 COPD type: emphysema Emphysema type: centrilobular Pulmonary nodule R91.1 Chronic respiratory failure with hypoxia and hypercapnia J96.11; J96.12 Respiratory failure complication: hypoxia and hypercapnia Primary insomnia F51.01 Insomnia type: primary Chronic respiratory failure with hypoxia and hypercapnia J96.11; J96.12 Chronicity: chronic Respiratory failure complication: hypoxia and hypercapnia RITA (obstructive sleep apnea) G47.33 Malignant neoplasm of left lung, unspecified part of lung C34.92 Laterality: left Lung location: unspecified part of lung Acute on chronic respiratory failure with hypoxia and hypercapnia J96.21; J96.22 Respiratory failure complication: hypoxia and hypercapnia Time Spent (min) 60
--- OUTSIDE RECORDS SUMMARY | 2025-06-26 11:52 | XMS_ITS ---
Author Name [facility] Organization Unknown Results Test Name/Text Value Interpretation Date Range Source Magnesium SerPl-mCnc 2.0 mg/dL 04/04/2025 1.7 - 2.8 [facility] eGFRcr SerPlBld CKD-EPI 2020 79.0 mL/min/1.73m2 04/04/2025 - [facility] Glucose SerPl-mCnc 136.0 mg/dL 04/04/2025 70 - 199 [facility] Sodium SerPl-sCnc 140.0 mmol/L 04/04/2025 135 - 14 5 [facility] CO2 SerPl-sCnc 38.0 mmol/L Above high normal 04/04/2025 24 - 32 [facility] Potassium SerPl-sCnc 3.9 mmol/L 04/04/2025 3.5 - 5.1 [facility] Calcium SerPl-mCnc 8.5 mg/dL 04/04/2025 8.4 - 10.2 [facility] Creat SerPl-mCnc 0.8 mg/dL 04/04/2025 0.5 - 1 CT [facility] BUN/Creat SerPl 21.3 Above high normal 04/04/2025 12 - 20 [facility] Chloride SerPl-sCnc 97.0 mmol/L Below low normal 04/04/2025 98 - 107 [facility] BUN SerPl-mCnc 17.0 mg/dL 04/04/2025 7 - 17 [facility] Anion Gap SerPl Calc-sCnc 5.0 04/04/2025 5 - 14 [facility] Hct VFr Bld Auto 31.3 % Below low normal 04/04/2025 37 - 47 [facility] PMV Bld Auto 7.1 FL Below low normal 04/04/2025 7.4 - 11. 4 [facility] MCHC RBC Auto-EntMCnc 32.1 g/dL 04/04/2025 32 - 36 [facility] RBC Auto 85.9 FL 04/04/2025 78 - 100 [facility] N RDW RBC Auto 18.7 % Above high normal 04/04/2025 12.1 - 1 6.2 [facility] MCH RBC Qn Auto 27.6 pcg 04/04/2025 25 - 33 [facility] RBC # Bld Auto 3.64 M/mcL Below low normal 04/04/2025 4.2 - 5.4 [facility] Hgb Bld-mCnc 10.0 g/dL Below low normal 04/04/2025 12.5 - 16 [facility] Platelet # Bld Auto 287.0 K/mcL 04/04/2025 150 - 450 [facility] WBC # Bld Auto 4.3 K/mcL 04/04/2025 4 - 10.5 [facility] Creat SerPl-mCnc 1.0 mg/dL 04/03/2025 0.5 - 1 CT _[facility] BUN SerPl-mCnc 23.0 mg/dL Above high normal 04/03/2025 7 - 1 7 [facility] Anion Gap SerPl Calc-sCnc 3.0 Below low normal 04/03/2025 5 - 14 [facility] BUN/Creat SerPl 23.0 Above high normal 04/03/2025 12 - 20 [facility] eGFRcr SerPlBld CKD-EPI 2020 61.0 mL/min/1.73m2 04/03/2025 - [facility] Calcium SerPl-mCnc 8.7 mg/dL 04/03/2025 8.4 - 10.2 [facility] Potassium SerPl-sCnc 5.4 mmol/L Above high normal 04/03/2025 3.5 - 5.1 [facility] Sodium SerPl-sCnc 141.0 mmol/L 04/03/2025 135 - 14 5 [facility] Glucose SerPl-mCnc 143.0 mg/dL 04/03/2025 70 - 199 [facility] CO2 SerPl-sCnc 42.0 mmol/L Critically high 04/03/2025 24 - 3 2 [facility] Chloride SerPl-sCnc 96.0 mmol/L Below low normal 04/03/2025 98 - 107 [facility] Magnesium SerPl-mCnc 2.1 mg/dL 04/03/2025 1.7 - 2.8 [facility] RBC Auto 86.0 FL 04/03/2025 78 - 100 [facility] N PMV Bld Auto 6.9 FL Below low normal 04/03/2025 7.4 - 11. 4 [facility] Hct VFr Bld Auto 34.7 % Below low normal 04/03/2025 37 - 47 [facility] WBC # Bld Auto 4.5 K/mcL 04/03/2025 4 - 10.5 [facility] MCHC RBC Auto-EntMCnc 31.9 g/dL Below low normal 04/03/2025 32 - 36 [facility] RBC # Bld Auto 4.03 M/mcL Below low normal 04/03/2025 4.2 - 5.4 [facility] Platelet # Bld Auto 315.0 K/mcL 04/03/2025 150 - 450 [facility] MCH RBC Qn Auto 27.5 pcg 04/03/2025 25 - 33 [facility] RDW RBC Auto 18.3 % Above high normal 04/03/2025 12.1 - 1 6.2 [facility] Hgb Bld-mCnc 11.1 g/dL Below low normal 04/03/2025 12.5 - 16 [facility] Ref Lab Test Results See Scanned Result 05/18/2025 [facility] Ref Lab Test Results See Scanned Result 05/02/2025 [facility] Citation Ref Lab Test The technical components of this case were performed at [address] [address] CLIA # [id number] 04/11/2025 [facility] Ref Lab Test Results See Scanned Result 04/11/2025 [facility] Ref Lab Test Results See Scanned Result 04/10/2025 [facility] Citation Ref Lab Test The technical components of this case were performed at [address] [place] [address] IA # [id number] 04/04/2025 [facility] Clinical Information IN CYTO 04/04/2025 [facility] History of Medication Use Medication Directions Dispensed Refills Start Date End Date Status lamoTRIgine (LaMICtal) tablet 300 mg 5 active benzocaine-menthoL (CEPACOL SORE THROAT) 15-3.6 mg lozenge 1 lozenge 1 lozenge, Mouth/Throat, Once, On Tue04/03/25 at 2145, For 1 dose 5 04/04/20 25 completed predniSONE (DELTASONE) tablet 5 mg 5 mg, oral, Daily, First dose on Tue04/04/25 at 09 5 04/04/20 25 active ARIPiprazole (ABILIFY) tablet 10 mg 10 mg, oral, Daily, First dose on Tue04/04/25 at 09 5 active budesonide (PULMICORT) 0.5 mg/2 mL nebulizer solution 0.5 mg 0.5 mg, nebulization, 2 times daily, First dose on Tue04/04/25 at 0900, Rinse mouth with water after use to reduce aftertaste and incidence of candidiasis. Do not swallow. 5 active cholecalciferol (VITAMIN D-3) tablet 2,000 Units 2,000 Units, oral, Daily, First dose on Tue04/04/25 at 0900, 1000 units = 25 mcg of cholecalciferol (VITAMIN D3) 5 active docusate sodium (COLACE) capsule 100 mg 100 mg, oral, Daily, First dose on Tue04/04/25 at 09 5 active formoterol (PERFOROMIST) 20 mcg/2 mL nebulizer solution 20 mcg 20 mcg, nebulization, 2 times daily, First dose on Tue04/04/25 at 09 5 active lamoTRIgine (LaMICtal) tablet 200 mg 200 mg, oral, Every morning, First dose on Tue04/04/25 at 0745 5 active loratadine (CLARITIN) tablet 10 mg 10 mg, oral, Daily, First dose on Tue04/04/25 at 0900 5 active predniSONE (DELTASONE) 5 mg tablet Take 8 tablets (40 mg total) by mouth 1 (one) time each day for 5 days, THEN 1 tablet (5 mg total) 1 (one) time each day. active revefenacin (YUPELRI) 175 mcg/3 mL nebulizer solution 175 mcg 175 mcg, nebulization, Daily, First dose on Tue04/04/25 at 0900 5 active theophylline (THEODUR) 12 hr tablet 200 mg 5 active acetaminophen (TYLENOL) tablet 650 mg 650 mg, oral, Once as needed, mild pain, Starting on Tue04/03/25 at 1010, For 1 dose, Recovery (only), For Pain (1-3) 04/03/20 completed ipratropium-albutero L (DUONEB) 0.5-2.5 mg/3 mL nebulizer solution 3 mL 3 mL, nebulization, Every 6 hours PRN, wheezing, Starting on Tue04/04/25 at 0724 04/03/20 active acetaminophen (TYLENOL) 500 mg tablet Take 1 tablet (500 mg total) by mouth every 6 (six) hours if needed (pain). 04/04/20 aborted diclofenac (VOLTAREN) 1 % topical gel Apply 1 g topically 3 (three) times a day if needed (pain). 04/04/20 aborted furosemide (LASIX) 20 mg tablet Take 1 tablet (20 mg total) by mouth 1 (one) time each day if needed (SOB, Weight gain more than 6 lb). 04/04/20 aborted lactulose (CHRONULAC) solution Take 30 mL (20 g total) by mouth 1 (one) time each day if needed (constipation). 04/04/20 aborted senna (SENOKOT) 8.6 mg tablet Take 1 tablet (8.6 mg total) by mouth 1 (one) time each day if needed for constipation. 4 04/04/20 aborted albuterol HFA (PROAIR HFA ; PROVENTIL HFA ; VENTOLIN HFA) 90 mcg/actuation inhaler Inhale 2 puffs by mouth every 4 (four) hours if needed (cough). 4 active apixaban (ELIQUIS) tablet 5 mg 5 mg, oral, 2 times daily, First dose on Tue04/04/25 at 0900, Indication: Atrial Fibrillation active fish oil (OMEGA-3) 60-90-500 mg capsule Take 2 capsules (1,000 mg total) by mouth 1 (one) time each day. 4 active fluticasone propionate (FLONASE) 50 mcg/actuation nasal spray 1 spray 1 spray, Each Nostril, 2 times daily, First dose on [facility] 04/04/25 at 0900, Shake gently. Before first use, prime pump (press 6 times until fine spray appears). After use, clean tip and replace cap. 4 active furosemide (LASIX) tablet 40 mg 40 mg, oral, Daily, First dose on Stacie 04/04/25 at 0900 4 active metoprolol succinate (TOPROL-XL) 100 mg 24 hr tablet Take 1 tablet (100 mg total) by mouth 1 (one) time each day. Do not crush or chew. 4 active potassium chloride (KLOR-CON M10) 10 mEq CR tablet Take 1 tablet (10 mEq total) by mouth 1 (one) time each day. Tablet may be swallowed whole (do not crush/chew/suck on) OR broken in half and each half swallowed separately OR dissolved (whole tablet) in ~4 ounces of water (allow ~2 minutes to dissolve, stir well and administer immediately). 4 active mineral oil (Mineral Oil Light) topical Apply 4 g topically every other day if needed (itching or dryness). 4 active aspirin EC tablet 81 mg 81 mg, oral, Daily, First dose on [facility] 04/04/25 at 0900, Do not crush, chew, or split. 4 active cholecalciferol (VITAMIN D-3) 50 mcg (2,000 unit) capsule Take 1 capsule (2,000 Units total) by mouth 1 (one) time each day in the morning. 4 active docusate sodium (COLACE) 100 mg tablet Take 1 tablet (100 mg total) by mouth 1 (one) time each day in the morning. 4 active gabapentin (NEURONTIN) capsule 100 mg 100 mg, oral, 3 times daily, First dose on Stacie 04/04/25 at 0900 4 active mirtazapine (REMERON) tablet 15 mg 4 active montelukast (SINGULAIR) tablet 10 mg 10 mg, oral, Daily, First dose on [facility] 04/04/25 at 0900 4 active calcium carbonate-vitamin D 500 mg-5 mcg (200 unit) per tablet 1 tablet 1 tablet, oral, 2 times daily, First dose on [facility] 04/04/25 at 0900 4 active guaiFENesin (MUCINEX) 600 mg 12 hr tablet Take 2 tablets (1,200 mg total) by mouth 2 (two) times a day. 4 active mineral oil external liquid 1 mL by Not Applicable route 2 (two) times a day. 4 active lamoTRIgine (LaMICtal) 150 mg tablet Take 2 tablets (300 mg total) by mouth at bedtime. 4 active betamethasone, augmented, (DIPROLENE) 0.05 % ointment Apply topically 2 times/day for 3 weeks 4 active fluocinolone acetonide oiL 0.01 % drops Administer 4 drops into affected ear(s) every other day if needed (other). 4 active lamoTRIgine (LaMICtal) 200 mg tablet Take 1 tablet (200 mg total) by mouth 1 (one) time each day in the morning. 4 active cyclobenzaprine (FLEXERIL) 5 mg tablet Take 1 tablet (5 mg total) by mouth 3 (three) times a day if needed. 4 active salmeteroL (Serevent Diskus) 50 mcg/dose diskus inhaler Inhale 1 puff by mouth 2 (two) times a day. 4 active esomeprazole (NexIUM) 40 mg packet Take 40 mg by mouth 1 (one) time each day before breakfast. 4 active bisacodyL (DULCOLAX) 5 mg EC tablet Take 2 tablets by mouth right before your first dose of liquid prep. 4 active pantoprazole (PROTONIX) EC tablet 40 mg 40 mg, oral, Every morning before breakfast, First dose on Stacie 04/04/25 at 0745, Do not crush, chew, or split. 4 active vilazodone (VIIBRYD) tablet 40 mg 40 mg, oral, Every morning, First dose on Stacie 04/04/25 at 0745, Take with food. 4 active omega-3 acid ethyl esters (LOVAZA) 1 gram capsule Take 1 capsule (1,000 mg total) by mouth 2 (two) times a day. 4 active fluticasone furoate-vilanteroL (Breo Ellipta) 200-25 mcg/dose inhaler INHALE 1 PUFF DIRECTED ONCE A DAY 4 active umeclidinium (Incruse Ellipta) 62.5 mcg/actuation inhalation Inhale 1 puff by mouth 1 (one) time each day. 4 active alendronate (FOSAMAX) 70 mg tablet Take 1 tablet (70 mg total) by mouth every 7 (seven) days. 4 active ARIPiprazole (ABILIFY) 10 mg tablet Take 1 tablet (10 mg total) by mouth 1 (one) time each day. 4 active incontinence pad, liner, disp pad Incontinence Supply Disposable (Disposable Liners) Misc Use 3 times a day as needed for incontinence.= 4 active salicylic acid (T/LYNN) 3 % shampoo Apply one drop every 24-48 hours as needed. 4 active albuterol 2.5 mg /3 mL (0.083 %) nebulizer solution Take 3 mL (2.5 mg total) by nebulization every 4 (four) hours if needed. active sulfamethoxazole-tri methoprim (BACTRIM DS,SEPTRA DS) 800-160 mg per tablet Take 1 tablet by mouth 2 (two) times a day. active Allergies Allergen Reaction Severity Comment Documented Date Source Status SULFA DYNE Sulfa Drugs-tolerates recently 06/08/2017 [facility] active CODEINE OTHER hyper [facility] FLUOXETINE HYPERACTIVE BEHAVIOR Crazy [facility] HALOPERIDOL HIVES hyperactivity [facility] Problems Problem Status Onset Date Problem Type Date of Resolution Source Other secondary pulmonary hypertension ([facility] V24, [facility] [place] V28) active 2017-08-02 ProblemAct [facility] Depression active 2017-10-09 ProblemAct [facility] Dependence on supplemental oxygen active 2017-06-15 ProblemAct [facility] Seasonal allergies active 2019-03-20 ProblemAct [facility] Retinal hemorrhage active 2017-06-08 ProblemAct [facility] HTN (hypertension) active 2019-07-09 ProblemAct [facility] Lung nodule active 2025-04-03 ProblemAct [facility] Obese active 2019-07-26 ProblemAct [facility] RITA on CPAP active 2017-11-08 ProblemAct [facility] Insomnia active 2017-06-08 ProblemAct [facility] Chronic obstructive pulmonary disease ([facility] [place] V24, [facility] [place] V28) active 2017-07-29 ProblemAct [facility] Pain active EncounterDiagnosisAct [facility] Gastroesophageal reflux disease active 2017-06-08 ProblemAct [facility] Bipolar I disorder ([facility] [place] V24, [facility] [place] V28) active 2017-06-10 ProblemAct [facility] Chronic respiratory failure with hypercapnia ([facility] [place] V24, [facility] [place] V28) active 2017-08-02 ProblemAct [facility] Immunizations Vaccine Date Source Lot Number Status ePatientFinder SARS-CoV-2 COVID-19, mRNA, LNP-S, preservative free 04/24/2024 [facility] UNK completed Pneumococcal conjugate 20 va lent (Prevnar 20, PCV 20) 2mo and older 04/24/2024 [facility] comple lorenza Zoster recombinant (Shingrix ) 19yo and older 04/24/2024 [facility] completed Influenza Quadravalent, MDCK , 0.5ml, with preservative (Flucelvax) 6mo and older 09/05/2018 [facility] [id number] completed Encounters Encounter Type Encounter Reason Primary Diagnosis Location Date Ambulatory Chronic obstructive pulmonary disease, unspecified ([facility] V24, [facility] V28) Chronic obstructive pulmonary disease, unspecified ([facility] V24, [facility] [place] V28) [facility] 04/03/2025 Care Team Organization Name Specialty Phone Email Start Date End Da te [facility] Primary Care 04/03/2025 [facility] NEYDA [facility] Primary Care 04/03/2025
--- OUTSIDE RECORDS SUMMARY | 2025-06-26 11:52 | XMS_ITS | Encounter Summary ---
Author Organization [facility] Address [address] [place] [address] Care Team Providers Care Schedule Supervisor Name Role Phone Kinjal Barron [employer] OPERATOR Primary Care Provid er Encounter Details Date Type Department Care Team (Late Contact Info) Description 10/27/2024 Lab Requisition [facility] - Main Lab [address] [facility] [place] [id number] Janice Núñez MD [address] [facility] [address] [place] [address] Chronic obstructive pulmonary disease, unspecified (CMS/HCC V24, [...] Department Care Team (Late Contact Info) Description 07/16/2025 2:00 PM EDT Appointment [facility] Radiation Oncology [address] [place] [phone] Idalia Zhou, [employer] COLLAR BASTER [address] [place], [place] [phone] 07/16/2025 2:45 PM EDT Office Visit [facility] Hematology Oncology [address] [place] [phone] Lashanda Mcgill, [address] [place] [address] documented as of this encounter Procedures Procedure [...] [facility] Comment:Calculation based on the Chronic Kidney Disease Epidemiology Collaboration (CKD-EPI) equation refit without adjustment for race. BUN/Creatinine Ratio 16.9 LAB [...] Resul t [facility] [address] [place] [address], * (ABNORMAL) Complete blood count (10/29/2024 8:00 [...] LAB HEMETOLOGY METHOD 10/29/2024 12:10 PM EST [facility] MCH 27.0 27.0 - 32.0 [...] PM [facility] NRBC Absolute 0.00 <0.10 K/mcL LAB HEMETOLOGY METHOD 10/29/2024 12:10 PM [facility] Blood Venous blood specimen / Unknown Venipuncture / Unknown 10/29/2024 8:00 AM EST 10/29/2024 11:30 AM EST us Janice Núñez MD LAB BLOOD ORDERABLES Final Resul t [facility] [address] [place] [address], documented in this encounter Visit Diagnoses Diagnosis Chronic obstructive pulmonary disease, unspecified (CMS/HCC V24, CMS/HCC V28) documented in this encounter Additional Health Concerns Infection Onset Date Last Indicated Resolved Time Tuberculosis Rule-Out 04/03/2025 04/03/2025 2025 3:00 PM EDT documented as of this encounter Care Teams Schedule Supervisor Relationship Specialty Start Date End Date Kinjal Barron FNP [address] [facility] [place] [phone] PCP - General Family Medicine 03/06/25 documented as of this encounter
--- OUTSIDE RECORDS SUMMARY | 2025-06-26 11:52 | XMS_ITS | Clinical Summary ---
Author Organization [facility] Address [address] [place] [address] Care Team Providers Care Assistant Distribution Manager Name Role Phone Debra Ji MD Primary Care Provider [phone] Allergies Active Allergy Reactions Criticality Noted Date [...] 0 Active zoster vaccine live, PF, (ZOSTAVAX) 30028 UNT/0.65ML injection Inject 0.65 mL under the [...] Screening (DEXA Scan) 2019 Influenza Vaccine (#1) 2025 RSV Adult > 60+ Yrs or Pregn ant (1 - 1-dose 75+ series) 2029 Hepatitis B Vaccines Aged Out No long er eligible based on patient's age to complete this topic RSV Ped < 20 months Aged Out No longe r eligible based on patient's age to complete this topic Care Teams Assistant Distribution Manager Relationship Specialty Start Date End Date Debra Ji MD PCP - General Internal Medicine 06/27/17
== END 2025-06-26 13:24 | disposition home or self-care (01) ==
LOC: HO.HPS 10:52
PROVIDERS: PCP Nurse Practitioner Family; Visit Provider Hospitalist
DX: J43.2 Centrilobular emphysema (principal); R91.1 Solitary pulmonary nodule; J96.11 Chronic respiratory failure with hypoxia; J96.12 Chronic respiratory failure with hypercapnia; F51.01 Primary insomnia; G47.33 Obstructive sleep apnea (adult) (pediatric); C34.92 Malignant neoplasm of unspecified part of left bronchus or lung; J96.21 Acute and chronic respiratory failure with hypoxia; J96.22 Acute and chronic respiratory failure with hypercapnia
CPT/HCPCS: 99215; G2211

== ENCOUNTER → 2025-06-26 12:12 | Outpatient (BNV) | payer OTHER, SELFPAY | PROVIDERS: PCP Nurse Practitioner Family; Visit Provider Radiology Diagnostic Radiology | DX: J44.9 Chronic obstructive pulmonary disease, unspecified (principal) | CPT/HCPCS: 71046 ==

== ENCOUNTER 2025-07-25 08:16 | Outpatient (AMB) | payer OTHER, SELFPAY ==
--- OUTSIDE RECORDS SUMMARY | 2025-07-19 09:23 | XMS_ITS | Encounter Summary ---
Author Organization [facility] Address [address] [place] [address] Care Team Providers Care Regional Ehs Manager Name Role Phone Rabia Barrongeovanny Alonzoca CONSUMER EDUCATION SPECIALIST Primary Care Provid er Reason for Referral * Consultation (Routine) - Authorized Specialty Diagnoses / Procedures Referred By Contac t Referred To Contact Nutrition Diagnoses Squamous cell carcinoma of left lung (CMS/HCC V24, [facility]/HCC V28) Lashanda Pederson DO [address] [place] [id number] Phone: tel: fax: Referral ID Status Reason Start Date Expiration Date Visits Requested Visits Authorized [id number] Authorized Specialty Services Required 07/19/2025 07/19/2026 1 1 Reason for Visit * Episode Based Medications (Routine) - Authorized Specialty Diagnoses / Procedures Referred By Contac t Referred To Contact Diagnoses Squamous cell carcinoma of left lung ([facility]/HCC V24, [facility]/HCC V28) Lashanda Pederson DO [address] [place] [address] Phone: tel: fax: [facility] [address] [place] [phone] Phone: tel: fax: Referral ID Status Reason Start Date Expiration Date V isits Requested Visits Authorized [id number] Authorized 06/26/2025 06/26/2026 1 9 Encounter Details Date Type Department Care Team (Latest Contact Info) Description 07/19/2025 9:23 AM EDT - 07/19/2025 11:59 PM EDT Hospital Encounter [facility] [address] [facility] 2nd [place] [address] Squamous cell carcinoma of left lung (CMS/HCC V24, CMS/HCC V28) (Primary Dx) Discharge Disposition: Home or Self Care Social History Tobacco Use Types Packs/Day Years Used Date Smoking Tobacco: Former Cigarettes 2 40 0 12/30/1972 - 12/30/2006 Smokeless Tobacco: Never Comments:Quit 2017 Alcohol Use Standard Drinks/Week Comments Not Currently 0 (1 standard drink = 0.6 oz pur e alcohol) Interpersonal Safety Answer Date Record ed Physical Abuse 07/06/2025 Verbal Abuse 07/06/2025 Comments Unknown Sex and Gender Information Value Date Recorded Sex Assigned at Female 03/07/2025 9:10 AM EDT Legal Sex Female 9:53 PM EST Gender Identity Female 03/07/2025 9:10 AM EDT Sexual Orientation Straight 03/07/2025 9: 10 AM EDT Occupation Industry Job Start Date Job End Date Disabled Not on file Not on file Not on file documented as of this encounter Last Filed Vital Signs Vital Sign Reading Time Taken Comments Blood Pressure 131/53 07/19/2025 9:35 AM EDT Pulse 73 07/19/2025 9:35 AM EDT Temperature 36.5 C (97.7 F) 07/19/2025 9:35 AM EDT Respiratory Rate - - Oxygen Saturation 97% 07/19/2025 9:3 5 AM EDT C 3 LTS OF 02 Inhaled Oxygen Concentration - - Weight 86.7 kg (191 lb 3.2 oz) 07/19/2025 9:35 AM EDT Height - - Body Mass Index 36.13 07/16/2025 2:03 PM EDT documented in this encounter Functional Status * Are you deaf or do you have serious difficulty hearing? Answer Date of Assessment Author No 07/06/2025 1:10 AM EDT Cheryle Velazquez RN * Are you blind or do you have serious difficulty seeing, even when wearing glasses? Answer Date of Assessment Author No 07/06/2025 1:10 AM EDT Cheryle Velazquez RN * Do you have serious difficulty walking or climbing stairs? Answer Date of Assessment Author Yes 07/06/2025 1:10 AM EDT Cheryle Velazquez RN * Do you have serious difficulty dressing or bathing? Answer Date of Assessment Author Yes 07/06/2025 1:10 AM EDT Cheryle Velazquez RN * Because of a physical, mental, or emotional condition, do you have serious difficulty doing errandsalone such as visiting the doctor? Answer Date of Assessment Author Yes 07/06/2025 1:10 AM EDT Cheryle Velazquez RN documented as of this encounter Mental Status * Because of a physical, mental, or emotional condition, do you have serious difficulty concentrating, remembering, or making decisions? (5 years old or older) Answer Entry Date Author No 07/06/2025 1:10 AM EDT Cheryle Velazquez RN documented in this encounter Medications at Time of Discharge albuterol 2.5 mg /3 mL (0.083 %) nebulizer solution Take 3 mL (2.5 mg total) by nebulization every 4 (four) hours if needed. alendronate (FOSAMAX) 70 mg tablet Take 1 tablet (70 mg total) by mouth every 7 (seven) days. 4 apixaban (Eliquis) 5 mg tablet Take 1 tablet (5 mg total) by mouth 2 (two) times a day. 5 01/07/20 26 ARIPiprazole (ABILIFY) 10 mg tablet Take 1 tablet (10 mg total) by mouth 1 (one) time each day. 4 calcium carbonate-vitamin D (Calcium 500 + D) 500 mg-5 mcg (200 unit) per tablet Take 1 tablet by mouth 2 (two) times a day. 4 cholecalciferol (VITAMIN D-3) 50 mcg (2,000 unit) capsule Take 1 capsule (2,000 Units total) by mouth 1 (one) time each day in the morning. 4 dexAMETHasone (DECADRON) 4 mg tabletIndications:S quamous cell carcinoma of left lung ([facility] V24, [facility] V28) Take 8 mg (two tablets) once daily, starting the day after treatment, for three days (days 2-4). Take in the morning with food. 30 tablet 1 5 docusate sodium (COLACE) 100 mg capsule Take 1 capsule (100 mg total) by mouth 2 (two) times a day. fluocinolone acetonide oiL 0.01 % drops Administer 4 drops into affected ear(s) every other day if needed (other). 4 fluticasone furoate-vilanteroL (Breo Ellipta) 200-25 mcg/dose inhaler INHALE 1 PUFF DIRECTED ONCE A DAY 4 fluticasone propionate (FLONASE) 50 mcg/actuation nasal spray Administer 1 spray into each nostril 2 (two) times a day. Shake gently. Before first use, prime pump. After use, clean tip and replace cap. 16 g 3 4 gabapentin (NEURONTIN) 100 mg capsule Take 1 capsule (100 mg total) by mouth 3 (three) times a day. 4 incontinence pad, liner, disp pad Incontinence Supply Disposable (Disposable Liners) Misc Use 3 times a day as needed for incontinence.= 4 ipratropium-albuter oL (DUONEB) 0.5-2.5 mg/3 mL nebulizer solutionIndications :Chronic obstructive pulmonary disease, unspecified COPD type ([facility] V24, [facility] V28),Chronic respiratory failure with hypercapnia ([facility] V24, [facility] V28) Take 3 mL by nebulization 2 (two) times a day if needed for wheezing. 360 mL 2 5 04/09/20 26 lactulose (Enulose) solution Take 15 mL (10 g total) by mouth 1 (one) time each day if needed (constipation). 450 mL 5 08/15/20 25 lamoTRIgine (LaMICtal) 150 mg tablet Take 2 tablets (300 mg total) by mouth at bedtime. 4 07/28/20 25 lamoTRIgine (LaMICtal) 200 mg tablet Take 1 tablet (200 mg total) by mouth 1 (one) time each day in the morning. 4 lidocaine-prilocain e (EMLA) 2.5-2.5 % cream Apply to port site 1 hour prior to each time port is accessed 30 g 1 5 loratadine (CLARITIN) 10 mg tablet Take 1 tablet (10 mg total) by mouth 1 (one) time each day. metoprolol succinate (TOPROL-XL) 100 mg 24 hr tablet Take 1 tablet (100 mg total) by mouth 1 (one) time each day. Do not crush or chew. 30 each 11 4 10/03/20 25 mirtazapine (REMERON) 15 mg tablet Take 1 tablet (15 mg total) by mouth at bedtime. 4 montelukast (SINGULAIR) 10 mg tablet Take 1 tablet (10 mg total) by mouth 1 (one) time each day. 4 ondansetron ODT (ZOFRAN-ODT) 8 mg disintegrating tablet Dissolve 1 tablet (8 mg total) on top of the tongue every 8 (eight) hours if needed for nausea or vomiting for up to 7 days. 20 tablet 5 07/25/20 25 pantoprazole (PROTONIX) 40 mg EC tablet Take 1 tablet (40 mg total) by mouth 1 (one) time each day. 30 minutes before breakfast daily 4 prochlorperazine (COMPAZINE) 10 mg tablet Take 1 tablet (10 mg total) by mouth every 6 (six) hours if needed for nausea. 60 tablet 3 5 09/16/20 25 propylene glycol/peg 400/PF (SYSTANE, PF, OPHT) Administer into affected eye(s). salicylic acid (T/LYNN) 3 % shampoo Apply one drop every 24-48 hours as needed. 4 senna (SENOKOT) 8.6 mg tablet Take 1 tablet (8.6 mg total) by mouth 1 (one) time each day. theophylline (MANDY-24) 300 mg 24 hr capsule Take 1 capsule (300 mg total) by mouth 2 (two) times a day. vilazodone (VIIBRYD) 40 mg tablet Take 1 tablet (40 mg total) by mouth 1 (one) time each day in the morning. 4 betamethasone, augmented, (DIPROLENE) 0.05 % ointment 4 07/22/20 documented as of this encounter Discharge Disposition Disposition Code Departure Means Destination Home or Self Care documented in this encounter Progress Notes * Benita Johnson RN - 07/19/2025 9:30 AM EDT Pt arrives for first chemotherapy infusion today for lung cancer x 4 cycles followed by a year of immunotherapy. Handouts reviewed and provided about regimen. Consent obtained. Answered questions andconcerns. Pt has 24 hour WEB SERVICES MANAGER - currently with her WEB SERVICES MANAGER Angela. Pt wears home O2 3L at rest and 6L with ambulation- FERNANDEZ with pursed lip breathing used to recover. Pt medication list reviewed, aware of decadron regimen x 3 days after chemotherapy according to Script- Will hold Prednisone 40mg on those days as well as treatment day. Pt understands and held this AM. Pt chronically on steroids for COPD/Emphysema. Pt also notes she takes lasix daily but did hold this am due to convenience of bathroom. Will take when she gets home. Will continue to monitor for fluid overload today. Rebecca REECE met with patient and WEB SERVICES MANAGER. Referred to Debra LOZOYA per pt request. Also discussed cancer [facility] for wig referral/counseling/support but pt declines at this time. Pt denies SI and reports good support at home. Pt lives with daughter and multiple grandchildren (4 in total, 2 just went back to college). HCPon file. Pt premedicated and now resting with items in reach. 1220- Pt reports she has had right shoulder ache since this AM- questions if she slept wrong or if she has just been tense today leading up to coming to chemotherapy for the first time. Tylenol provided as well as heat pack with elevation on pillow. Pt reports the support of the pillow offered moderate relief alone. 1233- Pt resting with taxol infusing. Pt enjoying lunch at this time. Denies any issues. 1312- Pt to BR without incident ambulatory with standby assist. Denies any shoulder pain. 1440- BR without incident ambulatory, headache 7/10 frontal dull ache- ibuprofen ordered per Dr Pederson. 1520- Headache much better, Pt to BR without incident with standby assist to void. Now Resting withdaughter at side. 1610- Pt tolerated infusions today without incident. Reiterated important teaching points about home nausea management and decadron use. Reviewed important contact information as well as important reasons to call. Daughter in agreement. Pt left in stable condition via wheelchair with Emelyn WILLINGHAM to daughter car to drive her home. documented in this encounter Plan of Treatment Upcoming Encounters Date Type Department Care Team (Late st Contact Info) Description 08/01/2025 10:30 AM EDT Appointment [facility] [address] [place] [phone] [address] 08/08/2025 10:30 AM EDT Office Visit [facility] Hematology Oncology [address] [place] [phone] Lashanda Pederson, DO [address] [place] [address] 08/12/2025 10:00 AM EDT Appointment [facility] [address] [place] [phone] Scheduled Referrals Name Type Priority Associated Diagnoses Order Schedule Ambulatory referral to Nutrition Services Outpatient Referral Routine Squamous cell carcinoma of left lung (CMS/HCC V24, CMS/[facility] V28) 1 Occurrences starting 07/19/2025 until 07/19/2026 documented as of this encounter Visit Diagnoses Diagnosis Squamous cell carcinoma of left lung (CMS/HCC V24, CMS/HCC V28)- Primary documented in this encounter Administered Medications Inactive Administered Medications - up to 3 most recent administrations Medication Order MAR Action Action Date Dose Rate Site acetaminophen (TYLENOL) tablet 650 mg 650 mg, oral, Once as needed, fever - temperature GREATER than 38 C (100.4 F), headaches, generalized pain, back pain, abdominal cramping, Starting on Tue07/19/25 at 0953, Administer per institutional policyIndications:Squamous cell carcinoma of left lung (CMS/HCC V24, CMS/HCC V28) Given 07/19/2025 12:20 PM EDT 650 mg CARBOplatin (PARAPLATIN) 310 mg in sodium chloride 281 mL chemo IVPB 310 mg (rounded from 310.8 mg, Target AUC = 4), intravenous, at 562 mL/hr, Administer over 30 Minutes, Once, On Tue07/19/25 at 1345, For 1 dose, CARBOplatin is an irritant. To be infused after completion of PACLitaxel. Antineoplastic Hazardous Medication - Double pair of ASTM standard [id number] certified gloves - Hazardous gown - Eye/face protection if liquid that could splash - CSTD required when possibleIndications:Squamous cell carcinoma of left lung (CMS/HCC V24, CMS/HCC V28) New Bag 07/19/2025 3:17 PM EDT 310 mg 562 mL/hr dexAMETHasone (PF) (DECADRON) injection 20 mg 20 mg, intravenous, Once, On Tue07/19/25 at 1015, For 1 dose, IV push over 5 - 10 minutes.Indications:Squamous cell carcinoma of left lung (CMS/HCC V24, CMS/HCC V28) Given 07/19/2025 10:30 AM EDT 20 mg diphenhydrAMINE (BENADRYL) injection 25 mg 25 mg, intravenous, Once, On Tue07/19/25 at 1015, For 1 dose, IV push over 1-5 minutes.Indications:Squamous cell carcinoma of left lung (CMS/HCC V24, CMS/HCC V28) Given 07/19/2025 10:31 AM EDT 25 mg famotidine (PF) (PEPCID) injection 20 mg 20 mg, intravenous, Administer over 2 Minutes, Once, On Tue07/19/25 at 1015, For 1 dose, Dilute to total volume of 10 mL with 0.9% Normal Saline. IV Push over at least 2 minutes.Indications:Squamous cell carcinoma of left lung (CMS/HCC V24, CMS/HCC V28) Given 07/19/2025 10:31 AM EDT 20 mg fosaprepitant (EMEND) 150 mg in sodium chloride 0.9 % 100 mL IVPB 150 mg, intravenous, at 300 mL/hr, Administer over 20 Minutes, Once, On Tue07/19/25 at 1015, For 1 dose, Do not administer concurrently via Y-site with lactated ringer's fluids (LR)Indications:Squamous cell carcinoma of left lung ([facility]/HCC V24, CMS/HCC V28) New Bag 07/19/2025 11:11 AM EDT 150 mg 300 mL/hr ibuprofen (ADVIL,MOTRIN) tablet 400 mg 400 mg, oral, Once, On Tue07/19/25 at 1515, For 1 dose, Administer with food or milk to decrease GI upset Given 07/19/2025 3:01 PM EDT 400 mg PACLitaxel (TAXOL) 252 mg in sodium chloride (non-PVC) 292 mL chemo IVPB 252 mg (rounded from 249.75 mg = 135 mg/m2 1.85 m2), intravenous, at 97.3 mL/hr, Administer over 3 Hours, Once, On Tue07/19/25 at 1045, For 1 dose, PACLitaxel is an irritant with vesicant-like properties. This agent should be prepared either in glass or non-PVC containers and administered through non-PVC tubing and a low protein binding 0.2 or 0.22 micron in-line filter. Antineoplastic Hazardous Medication - Double pair of ASTM standard [id number] certified gloves - Hazardous gown - Eye/face protection if liquid that could splash - CSTD required when possibleIndications:Squamous cell carcinoma of left lung ([facility]/HCC V24, CMS/HCC V28) New Bag 07/19/2025 12:12 PM EDT 252 mg 97.3 mL/hr palonosetron (ALOXI) injection 250 mcg 250 mcg, intravenous, Once, On Tue07/19/25 at 1015, For 1 doseIndications:Squamous cell carcinoma of left lung ([facility]/HCC V24, CMS/HCC V28) Given 07/19/2025 10:31 AM EDT 250 mcg documented in this encounter Historical Medications * This list may reflect changes made after this encounter. senna (SENOKOT) 8.6 mg tablet Take 1 tablet (8.6 mg total) by mouth 1 (one) time each day. docusate sodium (COLACE) 100 mg capsule Take 1 capsule (100 mg total) by mouth 2 (two) times a day. added in this encounter Orders Medications Ordered That David ht Not Have Been Administered Count Last Ordered Date First Ordered Date albuterol 2.5 mg /3 mL (0.08 3 %) nebulizer solution 2.5 mg 1 07/19/2025 albuterol HFA (PROAIR HFA ; PROVENTIL HFA ; VENTOLIN HFA) 90 mcg/actuation inhaler 2 puff 1 07/19/2025 CARBOplatin (PARAPLATIN) 390 mg in sodium chloride 289 mL chemo IVPB 1 07/19/2025 diphenhydrAMINE (BENADRYL) injection 25 mg 1 07/19/2025 diphenhydrAMINE (BENADRYL) injection 50 mg 1 07/19/2025 EPINEPHrine (ADRENALIN) IM K it - adult 0.3 mg 1 07/19/2025 famotidine (PF) (PEPCID) injection 20 mg 1 07/19/2025 hydrocortisone sod succ (PF) (SOLU-CORTEF) injection 100 mg 1 07/19/2025 meperidine (PF) (DEMEROL) 25 mg/mL injection 25 mg 1 07/19/2025 OLANZapine (ZyPREXA ZYDIS) d isintegrating tablet 5 mg 1 07/19/2025 OLANZapine (ZyPREXA) tablet 5 mg 1 07/19/20 sodium chloride 0.9 % bolus 500 mL 1 2024 documented in this encounter Additional Health Concerns Assessment Noted Time PHQ-9 Depression Total Score: 07/19/20 5:04 PM EDT documented as of this encounter Care Teams Regional Ehs Manager Relationship Specialty Start Date End Date Kinjal Barron FNP [address] [place] [phone] PCP - General Family Medicine 03/06/25 documented as of this encounter
[2025-07-25 08:23] VITALS: BP 120/50; PULSE 66; O2SAT 93; BMI 35.8
--- NOTE | 2025-07-25 08:23 | MHC.OFFVIS ---
Vital Signs 07/25/25 08:23 Height 5 ft 1 in Weight 189 lb 9.561 oz BMI 35.8 BP 120/50 L Blood Pressure Location Lt brachial Position Sitting Pulse 66 Pulse Source Pulse Oximeter Pulse Oximetry (%) 93 Oxygen Delivery Method Nasal Cannula Oxygen Flow Rate 3 Intake Visit Reasons: ED follow up Porcelain Enamel Repairer Required: No Accompanied by: Daughter Allergies fluoxetine Allergy (Severe, Verified 07/25/25 08:29) Irritable codeine (Codeine) Allergy (Intermediate, Verified 06/26/25 11:10) RESTLESS/RASH haloperidol (Haldol) Allergy (Intermediate, Verified 06/26/25 11:10) Palpitations HPI Comments Details: The patient is a 70-year-old woman with known history of COPD and chronic hypoxic and hypercarbic respiratory failure. She 1st did require a tracheostomy in the past and she had a prolonged hospitalization which she was able to be decannulated. She was then placed on noninvasive ventilation. The patient has been inconsistent with the usage. In January of this year the patient was admitted to the hospital with acute on chronic hypercarbic respiratory failure where her pCO2 was about 118 mmHg.. The patient was placed on noninvasive ventilation and her pH normalize and her average pCO2 was between 60-70. She was discharged to use her trilogy at home. At home she is still struggling with the noninvasive ventilator. She has a hard time getting used to it. Her [employer], [employer] will be performing overnight oximetry with an end-tidal CO2 to measure her see you to into appropriately adjust her noninvasive ventilator. She also has made mentioning that she has been more short of breath and she has had more hypoxia. In the office we did perform a 6 minutes walk test and she did require 2 L nasal cannula to maintain her pulse ox above 90%. Therefore, she will be using 3 L instead of to with activity and also with sleep. 04/15/2023 the patient is here for pulmonary follow-up visit. She still residing at the [facility]. She is using her trilogy noninvasive ventilator every night. However, she has been using more recently because she ended up in the hospital. She was having chest pressure sensation and dizziness. During the hospitalization at [facility] the patient states that she had an ABG done demonstrating a pCO2 58 and per report was okay. Therefore, will hold off on doing an ABG today. The patient has been fairly relatively well from a respiratory status. She does complaint of heaviness of the chest. On examination she is very diminished. Therefore likely has significant air trapping hyperinflation them every resulting in some chest pressure sensation. I did recommend she start using the trilogy with a sip and puff during the daytime to help her with the air trapping. The patient has also gained weight and that is also going to contribute to additional respiratory symptoms. The patient needs to start working on weight management with the help of the services provided. The patient is using her diuretics with good effect. No significant edema at this time. It is not clear if she is using the theophylline. She has been on multiple medications and has got to multiple institutions so therefore it is hard to know if those removed and if it was stopped for particular reason. We should recheck her theophylline levels if she is on theophylline. Otherwise restart the theophylline if she is off it and then recheck levels. She should stay within the low therapeutic range to help her with her severe COPD. Patient is using her oxygen at 3 L continues with good effect. Again, I reached out to the [employer], to rete she had uses sip and puff device that she can use during the daytime 06/17/2023 the patient is here for pulmonary follow-up visit. The patient has been doing well. She is looking now to move to a half-way. in the meantime she is using her noninvasive ventilator. The noninvasive ventilator has been affecting beneficial. We did have her undergo a venous blood gas in appears that her pH is stable. She understands that if she does move to a half-way she went to find a way to make sure that she continues use her noninvasive ventilator as prescribed. She continues on respiratory therapy. She continues oxygen supplementation at 3 L could would response. 09/20/2023 the patient has a telehealth visit today. Unfortunately she could not make it in from her residence. She has been more depressed lately. She has recently found out that she lost the services from her [facility]. There been with her for many years. In addition to that the patient has not been using her Trelegy ventilator. She is try to find out how long she can go without it. She was wondering if she can have blood work to see how well her CO2 is while she is not using it. However, I encouraged her to use it since we know that her baseline CO2 is already elevated and by using the ventilator she has better reserved in case she develops an exacerbation or an acute illness. The patient will start using her ventilator at nighttime. I did put him for blood work and she can always have the blood work done here or she can find out another means of doing a. But getting a blood gas will be difficult to do otherwise. The patient did recently have a respiratory illness with a virus. Was not COVID. She was not giving any prednisone or antibiotics. Her cough is not too bad. If the cough worsens with worsening congestion then using a antibiotic to minimize on the postviral bacterial infections would be reasonable. 12/23/2023 the patient is here for a pulmonary follow-up visit. Since we last spoke the patient did have a fall on her mcfp. She fractured multiple ribs and was admitted to [facility] with acute on chronic hypercarbic respiratory failure. She was placed on BiPAP and was able to stabilize. She did not require invasive ventilation. The patient had not been using her noninvasive ventilator at the mcfp. This is unfortunate. She understands the with her condition she relies on this therapy. The patient has been using now regularly since she was discharged from the hospital. She is looking to be placed in a half-way. Therefore, she is making the arrangements. We did have her undergo a venous blood gas today and her acid-base status is stable and pCO2 is back to her baseline. Her bicarbonate always will be elevated to try to compensate for the hypercarbia and right now is at 37. she does continue to use her respiratory therapy as prescribed. She is also using oxygen continuously throughout the day with good effect. Once the patient is out of the mcfp to a half-way will see about getting pulmonary function studies and starting outpatient pulmonary rehabilitation. Also to note while she was at [facility] she did have a CT scan of the chest that was personally by me. She had multiple rib fractures on the left 1 which was displaced. Also has small subcentimeter pulmonary nodule that will follow-up in a year's time. 02/21/2024 the patient is here for pulmonary follow-up visit. The patient overall has been doing well. She did move out of the mcfp in currently in a half-way. She is getting a lot of support. She is taking all her medications. Although, the theophylline 400 mg is not available. I will try sending her a different does see that was available and also will check theophylline levels. The patient has been using her noninvasive ventilator at nighttime. The therapy has been affecting beneficial. We did have her get blood work and it appears that her bicarb is down to 32 which is very encouraging. The patient also has been using her oxygen at 3 L continues will keep a go above 88%. The patient is able to increase it to 4 L if her oxygen is dropping below 88%. Will go ahead and request pulmonary function studies and plan for pulmonary rehabilitation at this time. Will follow-up in 3 months or sooner if any new issues arise. 05/24/2024 the patient is here for a pulmonary follow-up visit. She was recently at [facility]. There was an issue with her oxygen. Now she is back to her half-way. the having hard time regulating her oxygen. We did have her come in for 6 minute walk test. The patient needs 6 L of oxygen with activity and at least 2 L at rest. Although typically she needs more than 2 to keep her pulse ox above 90%. We did review her CT scan of the chest that she had while at [facility]. She has extensive emphysema which explains her very labile oxygen requirements. In addition to that she does have some pulmonary nodules that appear to have increased in size primarily in the left hemithorax. She will need a repeat CT scan in the next 3 months. She has minimal reserve. We did look at her previous PFTs demonstrating very severe COPD and severe diffusion impairment. however, the patient has been fairly well although she has had although severe disease. She has been using her noninvasive ventilator at nighttime. At least 6 hours. We did have her go for blood work including a venous gas demonstrating appears due to a baseline 61 mm of Hg. The patient does have some lower extremity edema. She will benefit from additional diuresis. In addition to that she is having increased wheezing chest tightness and cough. Therefore will send her a prednisone taper and also start an antibiotic. This will be to treat her for COPD exacerbation. She has participating in the pulmonary rehabilitation. She has fine the very affecting beneficial. She will continue for now. 07/06/2024 the patient is here for a pulmonary follow-up visit. She has been in an out of hospital. She has been trying to use her noninvasive ventilator more regularly. She understands it is a necessity for her to use it at least every night. She also continues with respiratory therapy. She has been responding well to the oxygen supplementation. Last blood gas was back the end of May demonstrating a pCO2 around 70 which is close to her baseline. She continues with respiratory therapy with good effect. Appears to have increasing lower extremity edema. Likely secondary to a component I will call pulmonale. Needs to continue with a low sodium diet and diuresis. CXR from 06/21/23 personally reviewed by me without any acute changes. 09/13/2024 the patient has a telehealth visit today. She is status post couple hospitalizations. Now she is at rehab and this is a telehealth. The patient initially was admitted to [facility] back at the end of June with acute on chronic respiratory failure. She was diagnosed with COVID a. During that admission she did have a CT a that I did evaluate. She did have an irregular nodular density in the left upper lobe likely infectious process although since his new and she is high risk for cancer we can not rule out malignancy. She was treated and then subsequently discharged back to her half-way. Subsequently after that she went to [facility]. The details are not available but she likely had a tachyarrhythmia. She did require cardioversion. Afterwards the patient was transferred to [facility] which is currently getting rehabilitation. She feels weak. She has a hard time walking. Her oxygen requirements are still about the same 3 L at rest and 6 L with activity. She is also having issues with her noninvasive ventilator which she is waking up short of breath. Therefore, will have her have a repeat 6 minute walk test while she is there she should also continue with multi disciplinary therapies in addition to that will talk to respiratory there to see if they can tweak her ventilator to a higher pressure to help her with those difficult times. The patient plans to go back to her half-way. 10/22/2024 the patient is here for hospital follow-up visit. She had been in the hospital with acute on chronic hypoxic and hypercarbic respiratory failure and subsequently went to [facility]. She is currently read some. She is not going back to the half-way. She is trying to feel better enough to be able to go to her daughter's. There she could have some assistance from with the family and also some medical assistance. But she is still not clear. She does use the noninvasive ventilator. She did get an placement while at rest own. She is tolerating well. Will have her get a blood gas to see what her CO2 is. In addition to that which she check her theophylline level since she has noticed some tachycardia. She continues to feel weak. She feels like her legs want to give out when she is ambulating. Strikes me that could be related to her CO2 as she has had issues with falls and weakness when her CO2 elevates. 11/15/2024 the patient is here for pulmonary follow-up visit. Since we last spoke she went to [facility] with worsening shortness of breath. There she did have a CT scan of the chest which I personally reviewed. This was done 11/02/2024 she also had a CT scan here at [facility] in the summer of 2023 and she had another CT scan at [facility] in 12/17/2023. I did review all of them. She does have a left upper lobe pulmonary nodule that appears to be worsening. There is significant concerned with his nodule for a smoldering infection process such as a fungal infection could be a localized bacterial infection but could also be a malignant process. The patient understands that her lung capacity significantly limited and with end-stage pulmonary disease and we difficult to do any invasive or semi-invasive procedures for diagnostic purposes. Therefore, rather treat her empirically. Will go ahead and request blood work including galactomannan and other laboratories. And will go ahead and treat her for potential staph infection or fungal infection. Plan to repeat the CT scan a couple months. If the area still present then will have to discuss how to proceed. Again, the patient is high risk for any intervention. In the meantime she has been using the noninvasive ventilator. The ventilator has been affecting beneficial although she continues to have elevations in the CO2. Will have to adjusted accordingly. The patient also may have a component of sleep apnea and an in-lab sleep study may be helpful as well to further address any significant sleep apnea and subsequently asleep PAP titration study to properly treat her underlying sleep apnea. She will continue with current respiratory therapy as prescribed. She will continue with the oxygen as prescribed. 12/20/2024 the patient is here for a pulmonary follow-up visit. Overall she is doing well. She is moving out of bed some going with her daughter. She is excited. In the meantime she has been using her noninvasive ventilator every night. The therapy has been affecting beneficial although she feels like sometimes she wakes up breathless and sometimes her oxygen requirements are increased. We will request a download in order to be able to adjust the machine accordingly with the help of [employer]. In addition to that she was admitted briefly to [facility] with significant anemia. She was placed on iron and now she is a little constipated. She is going to monitor closely her anemia specially because of her significant respiratory disease the anemia will ultimately resulting significantly worsening respiratory symptoms. If we not able to adjust her noninvasive ventilator appropriately that we can always consider a titration study. She also had an abnormal CT scan back in October and we had requested repeat. In the meantime she went to [facility] she did have a chest x-ray which is reassuring. Demonstrating emphysema and chronic stable findings. 01/18/2025 the patient is here for a pulmonary follow-up visit. Overall she is doing better. She was sickly with flu-like symptoms but now she is back to her baseline. She is using her noninvasive ventilation at nighttime although she still trying to find the right mask. We did have a phone small air touch F20 mask available. Seems to fit well and I believe she will do better with a full mask so it does not make as much noise. The patient also has been using her respiratory therapy. I will send all her medications to the pharmacy. In addition to this the patient did have a CT scan of the chest that we personally certainly reviewed and compared to her previous CT from from June. It appears that the masslike density in the left upper lobe is getting bigger. It is concerning for malignancy specially since she was treated for fungal infections and she has been treated for infectious bacterial infections as well without any evidence of any improvement. Therefore, will go ahead and request a PET scan to see if there is any significant evidence of hypermetabolic activity. Any kind of biopsy would be dangerous because of her significant respiratory failure. We can also consider stereotactic radiation to the area if is concerning enough on the PET scan without a biopsy. Will plan to follow-up after her PET scan several weeks. 02/21/2025 the patient is here for a pulmonary follow-up visit. Overall the patient has been feeling much better from a respiratory status. She has been using her noninvasive ventilator the whole night sometimes up to 10 hours a day. This is helping her feel better overall. Her respiratory medications and regimen is seems to be stable and she is tolerating it. She is gaining weight and we did talk about that. She needs to work on portion control Lifestyle changes. In the meantime she did undergo a PET scan. We did personally review together. She did have an FDG activity of 8 of the area of the left upper lobe peripheral nodular density. Indeed is concerning. She was already treated empirically for aspergilloma and also treated with antibiotics. This area indeed is concerning for malignancy. The issue is that she does have significant chronic hypercarbic and hypoxic respiratory failure and any procedure will potentially high risk. We did talk about a CT-guided biopsy although would have to go to her breast tissue and could result in a pneumothorax and so peripheral. The other option will be navigational bronchoscopy robotic bronchoscopy under general anesthesia. Which she should be able to tolerate but the anesthesia is indeed concerning for worsening perioperative complications. Will go ahead and refer her to Interventional Pulmonary to see if any interventions could be considered for her. In the meantime will go ahead and treat her with Bactrim although she has not allergy. Want to make sure we treat for smoldering infection such as Nocardia which can manifest in this form. Therefore the patient will start Bactrim I put him for CAT scan for 6 weeks from now to see those any improving the area and also she will follow-up with intervention a pulmonary. 05/08/2025 the patient is here for a pulmonary follow-up visit. The patient has been having a very busy few months. She did follow-up with Interventional Pulmonary she was diagnosed with lung cancer. Now she is following closely with oncology and radiation oncology. She is going to be starting SBRT and then after that she is going to receive chemotherapy with immune therapy. The patient is not a candidate for surgical resection because her very limited respiratory capacity. She has been using her trilogy at nighttime. The noninvasive ventilator has been affecting beneficial. However she is having hard time tolerating the pressures and she is having hard time with hypoxia. I am going to talk to [employer] to see if we can switch her over to astral and also we can adjust her pressures accordingly. The patient will continue to use her respiratory medications as prescribed. She is having some chest congestion. I do believe that Ohtuvayre would be a good addition chronic bronchitis and the fact that she will be able to use any prednisone while on immune therapy. She is going to talk about it with her daughter and the let me know if she wants me to start the process of required thin the medication. The patient will return in 6-8 weeks. If she has any issues prior to that she will call for an earlier assessment. 06/26/2025 the patient is here for a pulmonary follow-up visit. She is status post SBRT. She has had issues with radiation pneumonitis. The patient has been on prednisone currently at 15 mg. She continues use her respiratory therapy and also her oxygen supplementation up to 6 L with activity. Although, even on the 6 L she is still desaturating down to the low 80s if not high 70s. She is also using the oxygen with her noninvasive ventilator, trilogy at nighttime. She is still having issues with the pressures are so high that is pushing the mask off her face. Makes it very uncomfortable for her to use. I did reach out to her [employer] company, [employer] and did send some adjustments decreasing her tidal volume increasing her maximum pressure is and also increasing the respiratory rate to try to maintain a certain minute ventilation. Will have her get blood work today. In view of her significant hypoxia will have to rule out possibility of radiation pneumonitis but also other conditions such as thromboembolic disease specially with her lung cancer she is a high risk for blood clots. The patient also did have a walking oximetry and she did require up to 6 L with activity. Will adjust her medications accordingly based on her x-ray and blood work. In the meantime she is waiting to get stabilized to be able to get a port in order to start chemotherapy. I am concerned with the degree of respiratory failure any procedure will be high risk. 07/25/2025 the patient is here for pulmonary follow-up visit. She was recently hospitalized at [facility] with worsening respiratory breathing. Her noninvasive ventilator was adjusted. She seems to be tolerating it better. She continues on the oxygen. She also was diuresed. Her volume status is better and she does take Lasix as needed if she does gained 2 lb in 24 hours a 3 lb in 48 hours. She did start recently chemotherapy. She seems to be tolerating the paclitaxel on the cisplatin. She has received the 1st dose. Although the port looks a little bit inflamed. Will go ahead and started on some doxycycline and also check some blood cultures just in case. She will call her oncologist to make sure that they can evaluate the port access. In the meantime the patient continues her respiratory therapy. She is tolerating it well. Still has dyspnea on exertion. Moderate severity. She is on 15 mg of prednisone. Her respiratory exam is reassuring. Will try to decrease her prednisone slowly down from 15 mg to 10 mg. Will plan to get blood work today [facility] Medical History (Updated 07/25/25 @ 20:35 by Caden Acharya MD) Lung cancer Pulmonary nodule 1 cm or greater in diameter Lung mass RITA (obstructive sleep apnea) Cor pulmonale Rib fractures Pulmonary nodule Tubular adenoma of colon (~2006) Osteopenia (~2012) Bronchopneumonia Chest pain Chronic respiratory alkalosis ILD (interstitial lung disease) CO2 retention Acute on chronic respiratory failure with hypoxia and hypercapnia Bipolar depression Eczema Limb swelling Insomnia Bronchitis Vasomotor rhinitis COPD (chronic obstructive pulmonary disease) Chronic respiratory failure Fall Acute metabolic encephalopathy Acute and chronic respiratory failure with hypercapnia Surgical History History of carpal tunnel surgery (~2000) History of ventral hernia repair (~2003) History of left inguinal hernia repair (~1995) History of tracheostomy (~2016) History of cataract surgery (~2018) History of colonoscopy Family History Other Hypertension Social History Household Members: None Household Members Other:: half-way Housing: Other Housing Other:: half-way Are you a primary care consultant to a significant other at home: No Do you presently have visiting nurse or other home services: Yes (half-way services) Alcohol intake: former Patient Tobacco Use Status: Former Tobacco user Tobacco use type: Cigarette Years Smoked: 20+ years e-Cigarette/Vaping Use: Never Used Second Hand Smoke Exposure: No Advance Directives Date on File: 11/30/21 service: No Current occupational status: disabled Review of Systems Const Reports fatigue, Denies night sweats and Reports weight gain ENT Denies change in voice, Denies lip swelling, Denies mouth pain, Reports nasal congestion, Reports nasal discharge and Denies tongue swelling Card Denies chest pain, Reports pedal edema, Reports dyspnea and Reports dyspnea on exertion Resp Denies change in phlegm color, Denies chest congestion, Reports cough, Reports dyspnea, Reports dyspnea on exertion and Reports wheezing GI Denies abdominal pain Musc Denies no additional complaints, Reports abnormal gait and Reports muscle weakness Skin/Breast Reports erythema and Reports skin swelling Neuro Denies Neuro-related abnormal movements, Reports abnormal gait, Reports memory loss and Reports tremor(s) Psych Reports depression and Reports memory loss Endo Reports fatigue Gerson/Lymph Denies easy bleeding and Denies lymphadenopathy Aller/Immun Denies lip swelling, Denies tongue swelling and Reports wheezing Physical Exam Vital Signs: Last Vital Signs Pulse 66 07/25/25 08:23 BP 120/50 L 07/25/25 08:23 Pulse Ox 93 07/25/25 08:23 Oxygen Delivery Method Nasal Cannula 07/25/25 08:23 Oxygen Flow Rate 3 07/25/25 08:23 BMI result Body Mass Index 35.8 Last Vital Signs Temp 98.2 F 04/15/22 15:12 Pulse 97 04/15/22 15:26 Resp 18 04/15/22 15:26 BP 144/69 H 04/15/22 15:12 Pulse Ox 94 04/15/22 15:12 Oxygen Flow Rate 3 04/13/22 08:52 BMI result Body Mass Index 31.3 Const General: alert HEENT Head: Yes normocephalic Neck Neck: Yes normal visual inspection, Yes full ROM and Yes no lymphadenopathy Chest Chest palpation & inspection: normal inspection of the chest Resp Effort & Inspection: normal respiratory effort and prolonged expiratory phase Auscultation: rales and diminished lung sounds Cardio Rate: regular rate Rhythm: regular rhythm Heart sounds: S1 normal heart sound present and S2 normal heart sound present GI Palpation (GI): Soft to palpation and nontender Auscultation: normal bowel sounds Skin General skin exam: rashes and/or lesions noted Assessment & Plan Assessment & Plan (1) COPD (chronic obstructive pulmonary disease): Code(s): J44.9 - Chronic obstructive pulmonary disease, unspecified Category: Medical Qualifiers: COPD type: emphysema Emphysema type: centrilobular Qualified Code(s): J43.2 - Centrilobular emphysema (2) Pulmonary nodule: Code(s): R91.1 - Solitary pulmonary nodule Category: Medical (3) Chronic respiratory failure: Code(s): J96.10 - Chronic respiratory failure, unspecified whether with hypoxia or hypercapnia Category: Medical Qualifiers: Respiratory failure complication: hypoxia and hypercapnia Qualified Code(s): J96.11 - Chronic respiratory failure with hypoxia; J96.12 - Chronic respiratory failure with hypercapnia (4) Insomnia: Code(s): G47.00 - Insomnia, unspecified Category: Medical Qualifiers: Insomnia type: primary Qualified Code(s): F51.01 - Primary insomnia (5) Respiratory failure: Code(s): J96.90 - Respiratory failure, unspecified, unspecified whether with hypoxia or hypercapnia Category: Medical Qualifiers: Chronicity: chronic Respiratory failure complication: hypoxia and hypercapnia Qualified Code(s): J96.11 - Chronic respiratory failure with hypoxia; J96.12 - Chronic respiratory failure with hypercapnia (6) RITA (obstructive sleep apnea): Code(s): G47.33 - Obstructive sleep apnea (adult) (pediatric) Category: Medical (7) Lung cancer: Code(s): C34.90 - Malignant neoplasm of unspecified part of unspecified bronchus or lung Category: Medical Qualifiers: Laterality: left Lung location: unspecified part of lung Qualified Code(s): C34.92 - Malignant neoplasm of unspecified part of left bronchus or lung (8) Chronic hypoxic respiratory failure: Code(s): J96.11 - Chronic respiratory failure with hypoxia Category: Medical (9) Cellulitis: Code(s): L03.90 - Cellulitis, unspecified Category: Medical Qualifiers: Site of cellulitis: trunk Site of cellulitis of trunk: chest wall Qualified Code(s): L03.313 - Cellulitis of chest wall Plan continue noninvasive ventilator use. Will increase 10->12hrs. completed SBRT and chemo/immune therapy started paclitaxel.cisplatin as per oncology continue Breo continue Incruse continue Prednisone 5-10 mg daily start Diamox x 3 days start Doxycycline continue Ohtuvayre once the pt reviews the info and agrees to start oxygen at 3-4 liters/minute at rest and 6L/minute weight management lasix as needed F/U 6-8 weeks Orders: Orders Blood Culture X1 Today J96.11 - Chronic respiratory failure with hypoxia Basic Metabolic Panel Today J96.11 - Chronic respiratory failure with hypoxia Erythrocyte Sedimentation Rate Today J96.11 - Chronic respiratory failure with hypoxia Complete Blood Count Auto Diff Today J96.11 - Chronic respiratory failure with hypoxia Venous Blood Gas Today J96.11 - Chronic respiratory failure with hypoxia Medications: New doxycycline monohydrate 100 mg PO BID 28 tabs 0RF 14 days prednisone 4 mg (4 x 1 mg) PO DAILY 120 tabs 2RF 30 days Refilled furosemide (Lasix) 20 mg PO DAILY PRN 14 tabs 1RF edema 30 days Coding Level of Care Code Est Pt Level 5 (57545) Complex EM visit Add On G2211 Diagnoses Centrilobular emphysema J43.2 COPD type: emphysema Emphysema type: centrilobular Pulmonary nodule R91.1 Chronic respiratory failure with hypoxia and hypercapnia J96.11; J96.12 Respiratory failure complication: hypoxia and hypercapnia Primary insomnia F51.01 Insomnia type: primary Chronic respiratory failure with hypoxia and hypercapnia J96.11; J96.12 Chronicity: chronic Respiratory failure complication: hypoxia and hypercapnia RITA (obstructive sleep apnea) G47.33 Malignant neoplasm of left lung, unspecified part of lung C34.92 Laterality: left Lung location: unspecified part of lung Chronic hypoxic respiratory failure J96.11 Cellulitis of chest wall L03.313 Site of cellulitis: trunk Site of cellulitis of trunk: chest wall Time Spent (min) 60
--- OUTSIDE RECORDS SUMMARY | 2025-07-25 08:48 | XMS_ITS | Encounter Summary ---
Author Organization [facility] Address [address] [place] [address] Care Team Providers Care Wire Walker Name Role Phone Kinjal Barron PIN WORKER Primary Care Provid er Encounter Details Date Type Department Care Team (Late Contact Info) Description 11/02/[address] [facility] - Main Lab [address] [facility] [place] [address] Janice Núñez MD [address] [facility] [address] [place] [address] Chronic obstructive pulmonary disease, unspecified (CMS/HCC V24, [...] Department Care Team (Late Contact Info) Description 08/01/2025 10:30 AM EDT Appointment [facility] Radiation Oncology [address] [place] [phone] Debra Loya, DEVORA 08/08/2025 10:30 AM EDT Office Visit [facility] Hematology Oncology [address] [place] [phone] Lashanda Mcgill, [address] [place] [address] 08/12/2025 10:00 AM EDT Appointment [facility] Infusion [facility] [address] [phone] documented as of this encounter Procedures Procedure Name Priority Date/Time Associated Diagnosis Comments COMPLETE BLOOD COUNT Routine 11/02/2024 6:47 AM EST Chronic obstructive pulmonary disease, unspecified ([facility]/HCC) BASIC METABOLIC PANEL Routine 11/02/2024 6:47 AM EST Chronic obstructive pulmonary disease, unspecified ([facility]/HCC) documented in this encounter Results * (ABNORMAL) Basic metabolic panel (11/02/2024 6:47 AM EST) Sodium 138 133 - 145 mmol/L LAB CHEMISTRY METHOD 11/02/2024 11:22 AM [facility] Potassium 4.0 3.5 - 5.5 mmol/L LAB CHEMISTRY METHOD 11/02/2024 11:22 AM EST [facility] Chloride 93(L) 96 - 110 mmol/L LAB CHEMISTRY METHOD 11/02/2024 11:22 AM [facility] CO2 40(H) 21 - 32 mmol/L LAB CHEMISTRY METHOD 11/02/2024 11:22 AM EST [facility] Anion Gap 5 3 - 11 LAB CHEMISTRY METHOD 11/02/2024 11:22 AM [facility] Glucose 86 70 - 100 mg/dL LAB CHEMISTRY METHOD 11/02/2024 11:22 AM EST [facility] BUN 12 5 - 25 mg/dL LAB CHEMISTRY METHOD 11/02/2024 11:22 AM [facility] Creatinine 0.86 0.50 - 1.10 mg/dL LAB CHEMISTRY METHOD 11/02/2024 11:22 AM [facility] eGFR 73 >=60 mL/min/1. 73m2 LAB CHEMISTRY METHOD 11/02/2024 11:22 AM [facility] Comment:Calculation based on the Chronic Kidney Disease Epidemiology Collaboration (CKD-EPI) equation refit without adjustment for race. BUN/Creatinine Ratio 14.0 LAB CHEMISTRY METHOD 11/02/2024 11:22 AM [facility] Calcium 8.9 8.5 - 10.5 mg/dL LAB CHEMISTRY METHOD 11/02/2024 11:22 AM [facility] Blood Venous blood specimen / Unknown Venipuncture / Unknown 11/02/2024 6:47 AM EST 11/02/2024 9:35 AM EST us Janice Núñez MD LAB BLOOD ORDERABLES Final Resul t [facility] [address] [place] [address], * (ABNORMAL) Complete blood count (11/02/2024 6:47 [...] LAB HEMETOLOGY METHOD 11/02/2024 10:51 AM EST [facility] MCV 93.6 79.0 - 98.0 FL LAB HEMETOLOGY METHOD 11/02/2024 10:51 AM EST [facility] MCH 27.2 27.0 - 32.0 pcg LAB HEMETOLOGY METHOD 11/02/2024 10:51 AM [facility] MCHC 29.0(L) 32.0 - 37.0 g/dL LAB HEMETOLOGY METHOD 11/02/2024 10:51 AM EST [facility] RDW 14.6 11.0 - 15.0 % LAB HEMETOLOGY METHOD 11/02/2024 10:51 AM [facility] Platelets 509(H) 130 - 400 K/mcL LAB HEMETOLOGY METHOD 11/02/2024 10:51 AM [facility] MPV 9.7 7.0 - 11.0 FL LAB HEMETOLOGY METHOD 11/02/2024 10:51 AM EST [facility] NRBC 0.0 <1.0 % LAB HEMETOLOGY METHOD 11/02/2024 10:51 AM [facility] NRBC Absolute 0.00 <0.10 K/mcL LAB HEMETOLOGY METHOD 11/02/2024 10:51 AM [facility] Blood Venous blood specimen / Unknown Venipuncture / Unknown 11/02/2024 6:47 AM EST 11/02/2024 9:35 AM EST us Janice Núñez MD LAB BLOOD ORDERABLES Final Resul t [facility] [address] [place] [address], documented in this encounter Visit Diagnoses Diagnosis Chronic obstructive pulmonary disease, unspecified (CMS/HCC V24, CMS/HCC V28) documented in this encounter Additional Health Concerns Infection Onset Date Last Indicated Resolved Time Tuberculosis Rule-Out 04/03/2025 04/03/20252024 3:00 PM EDT Respiratory Rule-Out 07/06/2025 07/06/2025 025 4:37 AM EDT COVID-19 Rule-Out 07/06/2025 07/06/2025 07/06/2025 4:37 AM EDT documented as of this encounter Care Teams Wire Walker Relationship Specialty Start Date End Date Kinjal Barron FNP [address] [place] [phone] PCP - General Family Medicine 03/06/25 documented as of this encounter
--- OUTSIDE RECORDS SUMMARY | 2025-07-25 08:48 | XMS_ITS | Encounter Summary ---
Author Organization [facility] Address [address] [place] [address] Care Team Providers Care Shoe Shiner Name Role Phone Kinjal Barron OYSTER BED WORKER Primary Care Provid er Encounter Details Date Type Department Care Team (Late Contact Info) Description 11/20/2024 Lab Requisition [facility] - Main Lab 299 [facility] [place] [phone] Janice Núñez MD [address] [facility] [address] [place] [address] Chronic obstructive pulmonary disease, unspecified (CMS/HCC V24, [...] Info) Description 08/01/2025 10:30 AM EDT Appointment [facility] Radiation Oncology [address] [place] [phone] Debra Loya, DEVORA 08/08/2025 10:30 AM EDT Office Visit [facility] Hematology Oncology [address] [place] [phone] Lashanda Mcgill, [address] [place] [address] 08/12/2025 10:00 AM EDT Appointment [facility] Infusion Center [address] [phone] documented as of this encounter Procedures Procedure Name Priority Date/Time Associated Diagnosis Comments COMPLETE BLOOD COUNT Routine 11/20/2024 6:24 AM EST Chronic obstructive pulmonary disease, unspecified ([facility]/HCC) BASIC METABOLIC PANEL Routine 11/20/2024 6:24 AM EST Chronic obstructive pulmonary disease, unspecified ([facility]/HCC) documented in this encounter Results * (ABNORMAL) Basic metabolic panel (11/20/2024 6:24 AM EST) Sodium 134 133 - 145 mmol/L LAB CHEMISTRY METHOD 11/20/2024 10:56 AM EST [facility] Potassium 4.3 3.5 - 5.5 mmol/L LAB CHEMISTRY METHOD 11/20/2024 10:56 AM EST [facility] Chloride 87(L) 96 - 110 mmol/L LAB CHEMISTRY METHOD 11/20/2024 10:56 AM [facility] CO2 44(HH) 21 - 32 mmol/L LAB CHEMISTRY METHOD 11/20/2024 10:56 AM EST [facility] Anion Gap 3 3 - 11 LAB CHEMISTRY METHOD 11/20/2024 10:56 AM [facility] Glucose 83 70 - 100 mg/dL LAB CHEMISTRY METHOD 11/20/2024 10:56 AM EST [facility] BUN 17 5 - 25 mg/dL LAB CHEMISTRY METHOD 11/20/2024 10:56 AM EST [facility] Creatinine 0.95 0.50 - 1.10 mg/dL LAB CHEMISTRY METHOD 11/20/2024 10:56 AM [facility] eGFR 65 >=60 mL/min/1. 73m2 LAB CHEMISTRY METHOD 11/20/2024 10:56 AM [facility] Comment:Calculation based on the Chronic Kidney Disease Epidemiology Collaboration (CKD-EPI) equation refit without adjustment for race. BUN/Creatinine Ratio 17.9 LAB [...] [facility] [address] [place] [address], * (ABNORMAL) Complete blood count (11/20/2024 6:24 AM EST) WBC 8.4 4.8 - 10.8 K/mcL LAB HEMETOLOGY METHOD 11/20/2024 10:10 AM [facility] RBC 3.70(L) 3.80 - 4.80 M/mcL LAB HEMETOLOGY METHOD 11/20/2024 10:10 AM EST [facility] Hemoglobin 9.5(L) 11.5 - 16.0 g/dL LAB HEMETOLOGY METHOD 11/20/2024 10:10 AM [facility] Hematocrit 34.1(L) 35.0 - 47.0 % LAB HEMETOLOGY METHOD 11/20/2024 10:10 AM EST [facility] MCV 93.4 79.0 - 98.0 FL LAB HEMETOLOGY METHOD 11/20/2024 10:10 AM EST [facility] MCH 26.0(L) 27.0 - 32.0 pcg LAB HEMETOLOGY METHOD 11/20/2024 10:10 AM EST [facility] MCHC 27.9(L) 32.0 - 37.0 g/dL LAB HEMETOLOGY METHOD 11/20/2024 10:10 AM EST [facility] RDW 14.9 11.0 - 15.0 % LAB HEMETOLOGY METHOD 11/20/2024 10:10 AM [facility] Platelets 512(H) 130 - 400 K/mcL LAB HEMETOLOGY METHOD 11/20/2024 10:10 AM EST [facility] MPV 9.8 7.0 - 11.0 FL LAB HEMETOLOGY METHOD 11/20/2024 10:10 AM EST [facility] NRBC 0.0 <1.0 % LAB HEMETOLOGY METHOD 11/20/2024 10:10 AM [facility] NRBC Absolute 0.00 <0.10 K/mcL LAB HEMETOLOGY METHOD 11/20/2024 10:10 AM [facility] Blood Venous blood specimen / Unknown Venipuncture / Unknown 11/20/2024 6:24 AM EST 11/20/2024 9:31 AM EST us Janice Núñez MD LAB BLOOD ORDERABLES Final Resul t [facility] [address] [place] [address], documented in this encounter Visit Diagnoses Diagnosis Chronic obstructive pulmonary disease, unspecified (CMS/HCC V24, CMS/HCC V28) documented in this encounter Additional Health Concerns Infection Onset Date Last Indicated Resolved Time Tuberculosis Rule-Out 04/03/2025 04/03/20252024 3:00 PM EDT Respiratory Rule-Out 07/06/2025 07/06/2025 025 4:37 AM EDT COVID-19 Rule-Out 07/06/2025 07/06/2025 07/06/2025 4:37 AM EDT documented as of this encounter Care Teams Shoe Shiner Relationship Specialty Start Date End Date Kinjal Barron FNP [address] [place] [phone] PCP - General Family Medicine 03/06/25 documented as of this encounter
--- OUTSIDE RECORDS SUMMARY | 2025-07-25 08:48 | XMS_ITS | Encounter Summary ---
Author Organization [facility] Address [address] [place] [address] Care Team Providers Care Scallop Dredger Name Role Phone Kinjal Barron ER RN Primary Care Provid er Encounter Details Date Type Department Care Team (Late Contact Info) Description 10/19/2024 Lab Requisition [facility] - Main Lab 299 [facility] [place] [address] Janice Núñez MD [address] [facility] [address] [place] [address] Chronic obstructive pulmonary disease, unspecified (CMS/HCC V24, [...] Info) Description 08/01/2025 10:30 AM EDT Appointment [facility] Radiation Oncology [address] [place] [phone] Debra Loya, DEVORA 08/08/2025 10:30 AM EDT Office Visit [facility] Hematology Oncology [address] [place] [phone] Lashanda Mcgill, [address] [place] [address] 08/12/2025 10:00 AM EDT Appointment [facility] Infusion Center [address] [phone] documented as of this encounter Procedures Procedure Name Priority Date/Time Associated Diagnosis Comments COMPLETE BLOOD COUNT Routine 10/22/2024 8:17 AM EST Chronic obstructive pulmonary disease, unspecified ([facility]/HCC) BASIC METABOLIC PANEL Routine 10/22/2024 8:17 AM EST Chronic obstructive pulmonary disease, unspecified ([facility]/HCC) documented in this encounter Results * (ABNORMAL) Basic metabolic panel (10/22/2024 8:17 AM EST) Sodium 138 133 - 145 mmol/L LAB CHEMISTRY METHOD 10/22/2024 4:26 PM [facility] Potassium 3.8 3.5 - 5.5 mmol/L LAB CHEMISTRY METHOD 10/22/2024 4:26 PM [facility] Chloride 94(L) 96 - 110 mmol/L LAB CHEMISTRY METHOD 10/22/2024 4:26 PM [facility] CO2 41(HH) 21 - 32 mmol/L LAB CHEMISTRY METHOD 10/22/2024 4:26 PM [facility] Anion Gap 3 3 - 11 LAB CHEMISTRY METHOD 10/22/2024 4:26 PM [facility] Glucose 82 70 - 100 mg/dL LAB CHEMISTRY METHOD 10/22/2024 4:26 PM [facility] BUN 12 5 - 25 mg/dL LAB CHEMISTRY METHOD 10/22/2024 4:26 PM [facility] Creatinine 0.94 0.50 - 1.10 mg/dL LAB CHEMISTRY METHOD 10/22/2024 4:26 PM [facility] eGFR 65 >=60 mL/min/1. 73m2 LAB CHEMISTRY METHOD 10/22/2024 4:26 PM [facility] Comment:Calculation based on the Chronic Kidney Disease Epidemiology Collaboration (CKD-EPI) equation refit without adjustment for race. BUN/Creatinine Ratio 12.8 LAB CHEMISTRY METHOD 10/22/2024 4:26 PM [facility] Calcium 9.2 8.5 - 10.5 mg/dL LAB CHEMISTRY METHOD 10/22/2024 4:26 PM [facility] Blood Venous blood specimen / Unknown Venipuncture / Unknown 10/22/2024 8:17 AM EST 10/22/2024 11:52 AM EST us Janice Núñez MD LAB BLOOD ORDERABLES Final Resul t [facility] [address] [place] [address], * (ABNORMAL) Complete blood count (10/22/2024 8:17 AM EST) WBC 5.5 4.8 - 10.8 K/mcL LAB HEMETOLOGY METHOD 10/22/2024 12:22 PM [facility] RBC 3.40(L) 3.80 - 4.80 M/mcL LAB HEMETOLOGY METHOD 10/22/2024 12:22 PM [facility] Hemoglobin 9.4(L) 11.5 - 16.0 g/dL LAB HEMETOLOGY METHOD 10/22/2024 12:22 PM [facility] Hematocrit 32.9(L) 35.0 - 47.0 % LAB HEMETOLOGY METHOD 10/22/2024 12:22 PM EST [facility] MCV 96.8 79.0 - 98.0 FL LAB HEMETOLOGY METHOD 10/22/2024 12:22 PM [facility] MCH 27.6 27.0 - 32.0 pcg LAB HEMETOLOGY METHOD 10/22/2024 12:22 PM [facility] MCHC 28.6(L) 32.0 - 37.0 g/dL LAB HEMETOLOGY METHOD 10/22/2024 12:22 PM [facility] RDW 15.0 11.0 - 15.0 % LAB HEMETOLOGY METHOD 10/22/2024 12:22 PM [facility] Platelets 417(H) 130 - 400 K/mcL LAB HEMETOLOGY METHOD 10/22/2024 12:22 PM [facility] MPV 9.8 7.0 - 11.0 FL LAB HEMETOLOGY METHOD 10/22/2024 12:22 PM [facility] NRBC 0.0 <1.0 % LAB HEMETOLOGY METHOD 10/22/2024 12:22 PM [facility] NRBC Absolute 0.00 <0.10 K/mcL LAB HEMETOLOGY METHOD 10/22/2024 12:22 PM [facility] Blood Venous blood specimen / Unknown Venipuncture / Unknown 10/22/2024 8:17 AM EST 10/22/2024 11:52 AM EST us Janice Núñez MD LAB BLOOD ORDERABLES Final Resul t [facility] [address] [place] [address], documented in this encounter Visit Diagnoses Diagnosis Chronic obstructive pulmonary disease, unspecified (CMS/HCC V24, CMS/HCC V28) documented in this encounter Additional Health Concerns Infection Onset Date Last Indicated Resolved Time Tuberculosis Rule-Out 04/03/2025 04/03/20252024 3:00 PM EDT Respiratory Rule-Out 07/06/2025 07/06/2025 025 4:37 AM EDT COVID-19 Rule-Out 07/06/2025 07/06/2025 07/06/2025 4:37 AM EDT documented as of this encounter Care Teams Scallop Dredger Relationship Specialty Start Date End Date Kinjal Barron FNP [address] [place] [phone] PCP - General Family Medicine 03/06/25 documented as of this encounter
--- OUTSIDE RECORDS SUMMARY | 2025-07-25 08:48 | XMS_ITS | Encounter Summary ---
Author Organization [facility] Address [address] [place] [address] Care Team Providers Care Sugar Sampler Name Role Phone Kinjal Barron CHAIN SALES CONSULTANT Primary Care Provid er Encounter Details Date Type Department Care Team (Late Contact Info) Description 11/03/2024 Lab Requisition [facility] - Main Lab 299 [facility] [place] [address] Janice Núñez MD 300 [facility] [address] [place] [address] Chronic obstructive pulmonary disease, unspecified (CMS/HCC V24, [...] Info) Description 08/01/2025 10:30 AM EDT Appointment [facility] Radiation Oncology [address] [place] [phone] Debra Loya, DEVORA 08/08/2025 10:30 AM EDT Office Visit [facility] Hematology Oncology [address] [place] [phone] Lashanda Mcgill, [address] [place] [address] 08/12/2025 10:00 AM EDT Appointment [facility] Infusion Center [address] [phone] documented as of this encounter Procedures Procedure Name Priority Date/Time Associated Diagnosis Comments COMPLETE BLOOD COUNT Routine 11/05/2024 8:13 AM EST Chronic obstructive pulmonary disease, unspecified ([facility]/HCC) BASIC METABOLIC PANEL Routine 11/05/2024 8:13 AM EST Chronic obstructive pulmonary disease, unspecified ([facility]/HCC) documented in this encounter Results * (ABNORMAL) Basic metabolic panel (11/05/2024 8:13 AM EST) Sodium 141 133 - 145 mmol/L LAB CHEMISTRY METHOD 11/05/2024 11:51 AM [facility] Potassium 4.1 3.5 - 5.5 mmol/L LAB CHEMISTRY METHOD 11/05/2024 11:[address] [facility] Chloride 98 96 - 110 mmol/L LAB CHEMISTRY METHOD 11/05/2024 11:[address] [facility] CO2 43(HH) 21 - 32 mmol/L LAB CHEMISTRY METHOD 11/05/2024 11:[address] [facility] Anion Gap 0(L) 3 - 11 LAB CHEMISTRY METHOD 11/05/2024 11:51 AM [facility] Glucose 95 70 - 100 mg/dL LAB CHEMISTRY METHOD 11/05/2024 11:[address] [facility] BUN 12 5 - 25 mg/dL LAB CHEMISTRY METHOD 11/05/2024 11:51 AM [facility] Creatinine 0.97 0.50 - 1.10 mg/dL LAB CHEMISTRY METHOD 11/05/2024 11:51 AM [facility] eGFR 63 >=60 mL/min/1. 73m2 LAB CHEMISTRY METHOD 11/05/2024 11:51 AM [facility] Comment:Calculation based on the Chronic Kidney Disease Epidemiology Collaboration (CKD-EPI) equation refit without adjustment for race. BUN/Creatinine Ratio 12.4 LAB CHEMISTRY METHOD 11/05/2024 11:51 AM [facility] Calcium 9.0 8.5 - 10.5 mg/dL LAB CHEMISTRY METHOD 11/05/2024 11:51 AM [facility] Blood Venous blood specimen / Unknown Venipuncture / Unknown 11/05/2024 8:13 AM EST 11/05/2024 10:37 AM EST us Janice Núñez MD LAB BLOOD ORDERABLES Final Resul t [facility] [address] [place] [address], * (ABNORMAL) Complete blood count (11/05/2024 8:13 AM EST) WBC 5.7 4.8 - 10.8 K/mcL LAB HEMETOLOGY METHOD 11/05/2024 11:00 AM [facility] RBC 3.70(L) 3.80 - 4.80 M/mcL LAB HEMETOLOGY METHOD 11/05/2024 11:00 AM [facility] Hemoglobin 9.8(L) 11.5 - 16.0 g/dL LAB HEMETOLOGY METHOD 11/05/2024 11:00 AM [facility] Hematocrit 34.3(L) 35.0 - 47.0 % LAB HEMETOLOGY METHOD 11/05/2024 11:00 AM [facility] MCV 93.7 79.0 - 98.0 FL LAB HEMETOLOGY METHOD 11/05/2024 11:00 AM [facility] MCH 26.8(L) 27.0 - 32.0 pcg LAB HEMETOLOGY METHOD 11/05/2024 11:00 AM [facility] MCHC 28.6(L) 32.0 - 37.0 g/dL LAB HEMETOLOGY METHOD 11/05/2024 11:00 AM [facility] RDW 14.5 11.0 - 15.0 % LAB HEMETOLOGY METHOD 11/05/2024 11:00 AM [facility] Platelets 429(H) 130 - 400 K/mcL LAB HEMETOLOGY METHOD 11/05/2024 11:00 AM [facility] MPV 9.5 7.0 - 11.0 FL LAB HEMETOLOGY METHOD 11/05/2024 11:00 AM [facility] NRBC 0.0 <1.0 % LAB HEMETOLOGY METHOD 11/05/2024 11:00 AM [facility] NRBC Absolute 0.00 <0.10 K/mcL LAB HEMETOLOGY METHOD 11/05/2024 11:00 AM [facility] Blood Venous blood specimen / Unknown Venipuncture / Unknown 11/05/2024 8:13 AM EST 11/05/2024 10:37 AM EST us Janice Núñez MD LAB BLOOD ORDERABLES Final Resul t [facility] [address] [place] [address], documented in this encounter Visit Diagnoses Diagnosis Chronic obstructive pulmonary disease, unspecified (CMS/HCC V24, CMS/HCC V28) documented in this encounter Additional Health Concerns Infection Onset Date Last Indicated Resolved Time Tuberculosis Rule-Out 04/03/2025 04/03/20252024 3:00 PM EDT Respiratory Rule-Out 07/06/2025 07/06/2025 025 4:37 AM EDT COVID-19 Rule-Out 07/06/2025 07/06/2025 07/06/2025 4:37 AM EDT documented as of this encounter Care Teams Sugar Sampler Relationship Specialty Start Date End Date Kinjal Barron FNP [address] [place] [phone] PCP - General Family Medicine 03/06/25 documented as of this encounter
--- OUTSIDE RECORDS SUMMARY | 2025-07-25 08:48 | XMS_ITS | Encounter Summary ---
Author Organization [facility] Address [address] [place] [address] Care Team Providers Care Dye Weigher Name Role Phone Kinjal Barron SELF RISING FLOUR MIXER Primary Care Provid er Encounter Details Date Type Department Care Team (Late st Contact Info) Description 12/11/2024 Lab Requisition [facility] - Main Lab 299 [facility] [place] [address] Glenroy Goff MD [address] [place] [address], [phone] Chronic obstructive pulmonary disease, unspecified (CMS/HCC V24, [...] Info) Description 08/01/2025 10:30 AM EDT Appointment [facility] Radiation Oncology [address] [place] [phone] Debra Loya, DEVORA 08/08/2025 10:30 AM EDT Office Visit [facility] Hematology Oncology [address] [place] [phone] Lashanda Mcgill, [address] [place] [address] 08/12/2025 10:00 AM EDT Appointment [facility] Infusion Center [address] [phone] documented as of this encounter Procedures Procedure Name Priority Date/Time Associated Diagnosis Comments COMPLETE BLOOD COUNT Routine 12/11/2024 6:30 AM EST Chronic obstructive pulmonary disease, unspecified ([facility]/HCC) BASIC METABOLIC PANEL Routine 12/11/2024 6:30 AM EST Chronic obstructive pulmonary disease, unspecified ([facility]/HCC) documented in this encounter Results * (ABNORMAL) Basic metabolic panel (12/11/2024 6:30 AM EST) Sodium 131(L) 133 - 145 mmol/L LAB CHEMISTRY METHOD 12/11/2024 11:11 AM EST [facility] Potassium 4.1 3.5 - 5.5 mmol/L LAB CHEMISTRY METHOD 12/11/2024 11:11 AM EST [facility] Chloride 84(L) 96 - 110 mmol/L LAB CHEMISTRY METHOD 12/11/2024 11:11 AM EST [facility] CO2 43(HH) 21 - 32 mmol/L LAB CHEMISTRY METHOD 12/11/2024 11:11 AM EST [facility] Anion Gap 4 3 - 11 LAB CHEMISTRY METHOD 12/11/2024 11:11 AM [facility] Glucose 89 70 - 100 mg/dL LAB CHEMISTRY METHOD 12/11/2024 11:11 AM EST [facility] BUN 17 5 - 25 mg/dL LAB CHEMISTRY METHOD 12/11/2024 11:11 AM [facility] Creatinine 0.83 0.50 - 1.10 mg/dL LAB CHEMISTRY METHOD 12/11/2024 11:11 AM [facility] eGFR 76 >=60 mL/min/1. 73m2 LAB CHEMISTRY METHOD 12/11/2024 11:11 AM [facility] Comment:Calculation based on the Chronic Kidney Disease Epidemiology Collaboration (CKD-EPI) equation refit without adjustment for race. BUN/Creatinine Ratio 20.5 LAB CHEMISTRY METHOD 12/11/2024 11:11 AM [facility] Calcium 8.6 8.5 - 10.5 mg/dL LAB CHEMISTRY METHOD 12/11/2024 11:11 AM [facility] Blood Venous blood specimen / Unknown Venipuncture / Unknown 12/11/2024 6:30 AM EST 12/11/2024 9:22 AM EST us Glenroy Goff MD LAB BLOOD ORDERABLES Final Resul t [facility] [address] [place] [address], * (ABNORMAL) Complete blood count (12/11/2024 6:30 AM EST) WBC 7.2 4.8 - 10.8 K/mcL LAB HEMETOLOGY METHOD 12/11/2024 11:11 AM [facility] RBC 3.00(L) 3.80 - 4.80 M/mcL LAB HEMETOLOGY METHOD 12/11/2024 11:11 AM [facility] Hemoglobin 7.5(L) 11.5 - 16.0 g/dL LAB HEMETOLOGY METHOD 12/11/2024 11:11 AM [facility] Hematocrit 26.9(L) 35.0 - 47.0 % LAB HEMETOLOGY METHOD 12/11/2024 11:11 AM EST [facility] MCV 89.4 79.0 - 98.0 FL LAB HEMETOLOGY METHOD 12/11/2024 11:11 AM [facility] MCH 24.9(L) 27.0 - 32.0 pcg LAB HEMETOLOGY METHOD 12/11/2024 11:11 AM [facility] MCHC 27.9(L) 32.0 - 37.0 g/dL LAB HEMETOLOGY METHOD 12/11/2024 11:11 AM [facility] RDW 15.7(H) 11.0 - 15.0 % LAB HEMETOLOGY METHOD 12/11/2024 11:11 AM [facility] Platelets 399 130 - 400 K/mcL LAB HEMETOLOGY METHOD 12/11/2024 11:11 AM [facility] MPV 10.0 7.0 - 11.0 FL LAB HEMETOLOGY METHOD 12/11/2024 11:11 AM [facility] NRBC 0.0 <1.0 % LAB HEMETOLOGY METHOD 12/11/2024 11:11 AM [facility] NRBC Absolute 0.00 <0.10 K/mcL LAB HEMETOLOGY METHOD 12/11/2024 11:11 AM [facility] Blood Venous blood specimen / Unknown Venipuncture / Unknown 12/11/2024 6:30 AM EST 12/11/2024 9:22 AM EST us Glenroy Goff MD LAB BLOOD ORDERABLES Final Resul t [facility] [address] [place] [address], documented in this encounter Visit Diagnoses Diagnosis Chronic obstructive pulmonary disease, unspecified (CMS/HCC V24, CMS/HCC V28) documented in this encounter Additional Health Concerns Infection Onset Date Last Indicated Resolved Time Tuberculosis Rule-Out 04/03/2025 04/03/20252024 3:00 PM EDT Respiratory Rule-Out 07/06/2025 07/06/2025 025 4:37 AM EDT COVID-19 Rule-Out 07/06/2025 07/06/2025 07/06/2025 4:37 AM EDT documented as of this encounter Care Teams Dye Weigher Relationship Specialty Start Date End Date Kinjal Barron FNP [address] [place] [phone] PCP - General Family Medicine 03/06/25 documented as of this encounter
--- OUTSIDE RECORDS SUMMARY | 2025-07-25 08:48 | XMS_ITS | Encounter Summary ---
Author Organization [facility] Address [address] [place] [address] Care Team Providers Care Technology Intern Name Role Phone Kinjal Barron FAMILY COURT COUNSELLOR Primary Care Provid er Encounter Details Date Type Department Care Team (Late Contact Info) Description 10/15/2024 Lab Requisition [facility] - Main Lab 299 [facility] [place] [address] Alley San NP 300 [facility] [address] [facility] [address] Chronic obstructive pulmonary disease, unspecified ([facility]/HCC V24, [facility]/HCC V28) Social History Tobacco Use Types Packs/Day [...] Info) Description 08/01/2025 10:[address] [facility] Radiation Oncology [address] [place] [phone] Debra Loya, DEVORA 08/08/2025 10:30 AM EDT Office Visit [facility] Hematology Oncology [address] [place] [phone] Lashanda Mcgill, [address] [place] [address] 08/12/2025 10:[address] [facility] Infusion Center [address] [phone] documented as of this encounter Procedures Procedure Name Priority Date/Time Associated Diagnosis Comments COMPLETE BLOOD COUNT Routine 10/15/2024 8:35 AM EST Chronic obstructive pulmonary disease, unspecified (CMS/HCC) BASIC METABOLIC PANEL Routine 10/15/2024 8:35 AM EST Chronic obstructive pulmonary disease, unspecified ([facility]/HCC) documented in this encounter Results * (ABNORMAL) Basic metabolic panel (10/15/2024 8:35 AM EST) Sodium 140 133 - 145 mmol/L LAB CHEMISTRY METHOD 10/15/2024 1:[address] [facility] Potassium 3.8 3.5 - 5.5 mmol/L LAB CHEMISTRY METHOD 10/15/2024 1:[address] [facility] Chloride 90(L) 96 - 110 mmol/L LAB CHEMISTRY METHOD 10/15/2024 1:[address] [facility] CO2 40(H) 21 - 32 mmol/L LAB CHEMISTRY METHOD 10/15/2024 1:[address] [facility] Anion Gap 10 3 - 11 LAB CHEMISTRY METHOD 10/15/2024 1:[address] [facility] Glucose 81 70 - 100 mg/dL LAB CHEMISTRY METHOD 10/15/2024 1:[address] [facility] BUN 15 5 - 25 mg/dL LAB CHEMISTRY METHOD 10/15/2024 1:16 PM EST [facility] Creatinine 1.00 0.50 - 1.10 mg/dL LAB CHEMISTRY METHOD 10/15/2024 1:[address] [facility] eGFR 61 >=60 mL/min/1. 73m2 LAB CHEMISTRY METHOD 10/15/2024 1:[address] [facility] Comment:Calculation based on the Chronic Kidney Disease Epidemiology Collaboration (CKD-EPI) equation refit without adjustment for race. BUN/Creatinine Ratio 15.0 LAB CHEMISTRY METHOD 10/15/2024 1:[address] [facility] Calcium 9.6 8.5 - 10.5 mg/dL LAB CHEMISTRY METHOD 10/15/2024 1:[address] [facility] Blood Venous blood specimen / Unknown Venipuncture / Unknown 10/15/2024 8:35 AM EST 10/15/2024 11:13 AM EST Alley [facility] LAB BLOOD ORDERABLES Final Re sult [facility] [address] [place] [address], * (ABNORMAL) Complete blood count (10/15/2024 8:35 AM EST) WBC 8.3 4.8 - 10.8 K/mcL LAB HEMETOLOGY METHOD 10/15/2024 12:[address] [facility] RBC 3.80 3.80 - 4.80 M/mcL LAB HEMETOLOGY METHOD 10/15/2024 12:[address] [facility] Hemoglobin 10.7(L) 11.5 - 16.0 g/dL LAB HEMETOLOGY METHOD 10/15/2024 12:[address] [facility] Hematocrit 37.8 35.0 - 47.0 % LAB HEMETOLOGY METHOD 10/15/2024 12:[address] [facility] MCV 98.4(H) 79.0 - 98.0 FL LAB HEMETOLOGY METHOD 10/15/2024 12:51 PM EST [facility] MCH 27.9 27.0 - 32.0 pcg LAB HEMETOLOGY METHOD 10/15/2024 12:[address] [facility] MCHC 28.3(L) 32.0 - 37.0 g/dL LAB HEMETOLOGY METHOD 10/15/2024 12:[address] [facility] RDW 15.2(H) 11.0 - 15.0 % LAB HEMETOLOGY METHOD 10/15/2024 12:[address] [facility] Platelets 474(H) 130 - 400 K/mcL LAB HEMETOLOGY METHOD 10/15/2024 12:[address] [facility] MPV 9.6 7.0 - 11.0 FL LAB HEMETOLOGY METHOD 10/15/2024 12:51 PM EST [facility] NRBC 0.0 <1.0 % LAB HEMETOLOGY METHOD 10/15/2024 12:[address] [facility] NRBC Absolute 0.00 <0.10 K/mcL LAB HEMETOLOGY METHOD 10/15/2024 12:[address] [facility] Blood Venous blood specimen / Unknown Venipuncture / Unknown 10/15/2024 8:35 AM EST 10/15/2024 11:13 AM EST Alley San NP LAB BLOOD ORDERABLES Final Re sult [facility] [address] [place] [address], documented in this encounter Visit Diagnoses Diagnosis Chronic obstructive pulmonary disease, unspecified (CMS/HCC V24, CMS/HCC V28) documented in this encounter Additional Health Concerns Infection Onset Date Last Indicated Resolved Time Tuberculosis Rule-Out 04/03/2025 04/03/20252024 3:00 PM EDT Respiratory Rule-Out 07/06/2025 07/06/2025 025 4:37 AM EDT COVID-19 Rule-Out 07/06/2025 07/06/2025 07/06/2025 4:37 AM EDT documented as of this encounter Care Teams Technology Intern Relationship Specialty Start Date End Date Kinjal Barron FNP [address] [place] [phone] PCP - General Family Medicine 03/06/25 documented as of this encounter
--- OUTSIDE RECORDS SUMMARY | 2025-07-25 08:48 | XMS_ITS | Encounter Summary ---
Author Organization [facility] Address [address] [place] [address] Care Team Providers Care Banquet Chef Name Role Phone Kinjal Barron NATUROPATHIC PHYSICIAN Primary Care Provid er Encounter Details Date Type Department Care Team (Late Contact Info) Description 10/27/[address] [facility] - Main Lab 299 [facility] [place] [phone] Janice Núñez MD 300 [facility] [address] [place] [address] Chronic obstructive pulmonary disease, unspecified (CMS/HCC V24, [...] Info) Description 08/01/2025 10:30 AM EDT Appointment [facility] Radiation Oncology [address] [place] [phone] Debra Loya, DEVORA 08/08/2025 10:30 AM EDT Office Visit [facility] Hematology Oncology [address] [place] [phone] Lashanda Mcgill, [address] [place] [address] 08/12/2025 10:00 AM EDT Appointment [facility] Infusion Center [address] [phone] documented as of this encounter Procedures Procedure Name Priority Date/Time Associated Diagnosis Comments COMPLETE BLOOD COUNT Routine 10/29/2024 8:00 AM EST Chronic obstructive pulmonary disease, unspecified ([facility]/HCC) BASIC METABOLIC PANEL Routine 10/29/2024 8:00 AM EST Chronic obstructive pulmonary disease, unspecified ([facility]/HCC) documented in this encounter Results * (ABNORMAL) [...] t [facility] [address] [place] [address], * (ABNORMAL) Complete blood count (10/29/2024 8:00 [...] LAB HEMETOLOGY METHOD 10/29/2024 12:10 PM EST [facility] MCV 94.1 79.0 - 98.0 FL LAB HEMETOLOGY METHOD 10/29/2024 12:10 PM EST [facility] MCH 27.0 27.0 - 32.0 pcg LAB HEMETOLOGY METHOD 10/29/2024 12:10 PM [facility] MCHC 28.7(L) 32.0 - 37.0 g/dL LAB HEMETOLOGY METHOD 10/29/2024 12:10 PM EST [facility] RDW 14.5 11.0 - 15.0 % LAB HEMETOLOGY METHOD 10/29/2024 12:10 PM [facility] Platelets 504(H) 130 - 400 K/mcL LAB HEMETOLOGY METHOD 10/29/2024 12:10 PM EST [facility] MPV 9.3 7.0 - 11.0 FL LAB HEMETOLOGY METHOD 10/29/2024 12:10 PM EST [facility] NRBC 0.0 <1.0 % LAB HEMETOLOGY METHOD 10/29/2024 12:10 PM [facility] NRBC Absolute 0.00 <0.10 K/mcL LAB HEMETOLOGY METHOD 10/29/2024 12:10 PM [facility] Blood Venous blood specimen / Unknown Venipuncture / Unknown 10/29/2024 8:00 AM EST 10/29/2024 11:30 AM EST us Janice Núñez MD LAB BLOOD ORDERABLES Final Resul t [facility] [address] [place] [address], documented in this encounter Visit Diagnoses Diagnosis Chronic obstructive pulmonary disease, unspecified (CMS/HCC V24, CMS/HCC V28) documented in this encounter Additional Health Concerns Infection Onset Date Last Indicated Resolved Time Tuberculosis Rule-Out 04/03/2025 04/03/20252024 3:00 PM EDT Respiratory Rule-Out 07/06/2025 07/06/2025 025 4:37 AM EDT COVID-19 Rule-Out 07/06/2025 07/06/2025 07/06/2025 4:37 AM EDT documented as of this encounter Care Teams Banquet Chef Relationship Specialty Start Date End Date Kinjal Barron FNP [address] [place] [phone] PCP - General Family Medicine 03/06/25 documented as of this encounter
--- OUTSIDE RECORDS SUMMARY | 2025-07-25 08:48 | XMS_ITS | Clinical Summary ---
Author Organization [facility] Address [address] [place] [address] Phone Care Team Providers Care Associate Automation Engineer Name Role Phone Kinjal BarronP Primary Care Provid er Allergies Active Allergy Reactions Criticality Noted Date Comments Codeine Other 06/08/2017 hyper Fluoxetine Hyperactive behavior 06/08/2017 Crazy Haloperidol Hives 06/08/2017 hyperactivity Medications calcium carbonate-vitamin D (Calcium 500 + D) 500 mg-5 mcg (200 unit) per tablet Take 1 tablet by mouth 2 (two) times a day. Active incontinence pad, liner, disp pad Incontinence Supply Disposable (Disposable Liners) Misc Use 3 times a day as needed for incontinence.= Active albuterol 2.5 mg /3 mL (0.083 %) nebulizer solution Take 3 mL (2.5 mg total) by nebulization every 4 (four) hours if needed. Active alendronate (FOSAMAX) 70 mg tablet Take 1 tablet (70 mg total) by mouth every 7 (seven) days. Active ARIPiprazole (ABILIFY) 10 mg tablet Take 1 tablet (10 mg total) by mouth 1 (one) time each day. Active cholecalciferol (VITAMIN D-3) 50 mcg (2,000 unit) capsule Take 1 capsule (2,000 Units total) by mouth 1 (one) time each day in the morning. Active fluocinolone acetonide oiL 0.01 % drops Administer 4 drops into affected ear(s) every other day if needed (other). Active fluticasone furoate-vilantero L (Breo Ellipta) 200-25 mcg/dose inhaler INHALE 1 PUFF DIRECTED ONCE A DAY Active gabapentin (NEURONTIN) 100 mg capsule Take 1 capsule (100 mg total) by mouth 3 (three) times a day. Active lamoTRIgine (LaMICtal) 150 mg tablet Take 2 tablets (300 mg total) by mouth at bedtime. 2024 Active lamoTRIgine (LaMICtal) 200 mg tablet Take 1 tablet (200 mg total) by mouth 1 (one) time each day in the morning. Active mirtazapine (REMERON) 15 mg tablet Take 1 tablet (15 mg total) by mouth at bedtime. Active montelukast (SINGULAIR) 10 mg tablet Take 1 tablet (10 mg total) by mouth 1 (one) time each day. Active pantoprazole (PROTONIX) 40 mg EC tablet Take 1 tablet (40 mg total) by mouth 1 (one) time each day. 30 minutes before breakfast daily Active salicylic acid (T/LYNN) 3 % shampoo Apply one drop every 24-48 hours as needed. Active theophylline (MANDY-24) 300 mg 24 hr capsule Take 1 capsule (300 mg total) by mouth 2 (two) times a day. Active vilazodone (VIIBRYD) 40 mg tablet Take 1 tablet (40 mg total) by mouth 1 (one) time each day in the morning. Active furosemide (LASIX) 40 mg tablet Take 1 tablet (40 mg total) by mouth 1 (one) time each day. 90 each 1 Active Additional Information Patient taking differently: 20 mgoral Daily, Reported on 05/14/2025 fluticasone propionate (FLONASE) 50 mcg/actuation nasal spray Administer 1 spray into each nostril 2 (two) times a day. Shake gently. Before first use, prime pump. After use, clean tip and replace cap. 16 g 3 Active metoprolol succinate (TOPROL-XL) 100 mg 24 hr tablet Take 1 tablet (100 mg total) by mouth 1 (one) time each day. Do not crush or chew. 30 each 11 024 2024 Active albuterol HFA (PROAIR HFA ; PROVENTIL HFA ; VENTOLIN HFA) 90 mcg/actuation inhaler Inhale 2 puffs by mouth every 4 (four) hours if needed (cough). 17 g 3 Active loratadine (CLARITIN) 10 mg tablet Take 1 tablet (10 mg total) by mouth 1 (one) time each day. Active propylene glycol/peg 400/PF (SYSTANE, PF, OPHT) Administer into affected eye(s). Active ipratropium-albut Whitney (DUONEB) 0.5-2.5 mg/3 mL nebulizer solutionIndicatio ns:Chronic obstructive pulmonary disease, unspecified COPD type (CMS/HCC V24, CMS/HCC V28),Chronic respiratory failure with hypercapnia (CMS/HCC V24, CMS/HCC V28) Take 3 mL by nebulization 2 (two) times a day if needed for wheezing. 360 mL 2 2025 Active lidocaine-priloca ine (EMLA) 2.5-2.5 % cream Apply to port site 1 hour prior to each time port is accessed 30 g 1 Active dexAMETHasone (DECADRON) 4 mg tabletIndications :Squamous cell carcinoma of left lung (CMS/HCC V24, CMS/HCC V28) Take 8 mg (two tablets) once daily, starting the day after treatment, for three days (days 2-4). Take in the morning with food. 30 tablet 1 Active apixaban (Eliquis) 5 mg tablet Take 1 tablet (5 mg total) by mouth 2 (two) times a day. 025 2025 Active lactulose (Enulose) solution Take 15 mL (10 g total) by mouth 1 (one) time each day if needed (constipation). 450 mL 025 2024 Active prochlorperazine (COMPAZINE) 10 mg tablet Take 1 tablet (10 mg total) by mouth every 6 (six) hours if needed for nausea. 60 tablet 3 025 2024 Active ondansetron ODT (ZOFRAN-ODT) 8 mg disintegrating tablet Dissolve 1 tablet (8 mg total) on top of the tongue every 8 (eight) hours if needed for nausea or vomiting for up to 7 days. 20 tablet 025 2024 Active docusate sodium (COLACE) 100 mg capsule Take 1 capsule (100 mg total) by mouth 2 (two) times a day. Active senna (SENOKOT) 8.6 mg tablet Take 1 tablet (8.6 mg total) by mouth 1 (one) time each day. Active betamethasone, augmented, (DIPROLENE) 0.05 % ointment 024 2024 fish oil (OMEGA-3) 60-90-500 mg capsule Take 2 capsules (1,000 mg total) by mouth 1 (one) time each day. 60 capsule 11 024 2024 Discontinued apixaban (Eliquis) 5 mg tablet Take 1 tablet (5 mg total) by mouth 2 (two) times a day. 180 each 1 024 2024 Discontinued potassium chloride (KLOR-CON M10) 10 mEq CR tablet Take 1 tablet (10 mEq total) by mouth 1 (one) time each day. Tablet may be swallowed whole (do not crush/chew/suck on) OR broken in half and each half swallowed separately OR dissolved (whole tablet) in ~4 ounces of water (allow ~2 minutes to dissolve, stir well and administer immediately). 90 each 3 024 2024 Discontinued fish oil (OMEGA-3) 60-90-500 mg capsule Take 2 capsules (1,000 mg total) by mouth 1 (one) time each day. 60 capsule 11 024 2024 Discontinued sulfamethoxazole- trimethoprim (BACTRIM DS,SEPTRA DS) 800-160 mg per tablet Take 1 tablet by mouth 2 (two) times a day. 2024 Discontinued ferrous gluconate (FERGON) 324 mg (38 mg iron) tablet Take 1 tablet (324 mg total) by mouth every other day. 2024 Discontinued predniSONE (DELTASONE) 10 mg tablet Take 0.5 tablets (5 mg total) by mouth 2 (two) times a day. 45 each 025 2024 Discontinued(S top Taking at Discharge) diphenhydrAMINE 12.5 mg/5 mL elixir 50 mg, aluminum-magnesiu m hydroxide-simethi cone 400-400-40 mg/5 mL suspension 20 mL, lidocaine 2 % solution 20 mL Swish and swallow 5 mL every 3 (three) hours if needed for mucositis for up to 116 doses. 5-10 mLs every 3 hours. Don't eat or drink for 30 minutes after use. 560 each 2 025 2024 Discontinued ondansetron (ZOFRAN) 8 mg tablet Take 1 tablet (8 mg total) by mouth every 8 (eight) hours if needed for nausea or vomiting for up to 10 days. 30 tablet 025 2024 Discontinued azithromycin (ZITHROMAX) 250 mg tablet Take 1 tablet (250 mg total) by mouth 1 (one) time each day for 4 doses. 4 each 025 2024 predniSONE (DELTASONE) 20 mg tablet Take 2 tablets (40 mg total) by mouth 1 (one) time each day for 3 days, THEN 1.5 tablets (30 mg total) 1 (one) time each day for 3 days, THEN 1 tablet (20 mg total) 1 (one) time each day for 3 days, THEN 0.5 tablets (10 mg total) 1 (one) time each day for 3 days. 15 each 025 2024 Active Problems Problem Noted Date Diagnosed Date Acute on chronic respiratory failure with hypoxia and hypercapnia ([facility] V24, [facility] V28) 07/06/2025 Squamous cell carcinoma of l eft lung ([facility] V24, [facility] V28) 04/30/2025 Age-related osteoporosis wit h current pathological fracture of right femur with delayed healing 04/24/2025 Tachycardia 04/24/2025 Lung nodule 04/03/2025 Decreased hearing 01/09/2025 Urinary incontinence 01/09/2025 Seizure ([facility] V24, [facility] V28) 12/23/2024 Anemia 12/14/2024 Atopic dermatitis 10/06/2024 Cor pulmonale, acute ([facility] V24, [facility] V28) 10/06/2024 Acidosis 10/06/2024 Pneumonia 10/06/2024 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 09/21/2024 Overview (04/24/2025): IVAP Acute on chronic diastolic ( congestive) heart failure ([facility] V24, [facility] V28) 09/21/2024 Unspecified age-related cataract 09/21/2024 Unspecified atrial flutter ([facility] V24, [facility] V28) 09/21/2024 Congestive heart failure ([facility] V24, [facility] V 28) 08/23/2024 Post-traumatic stress disorder, unspecified 07/30 Somatic syndrome finding 08/23/2024 Pleuritic pain 11/23/2023 Primary localized osteoarthrosis of ankle and fo ot 09/08/2023 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 Date [...] lpm. Pre-study ESS 9. 2/4 RLS symptoms. Bipolar disorder, current ep isode depressed, mild or moderate severity, unspecified ([facility] V24, [facility] V28) 10/09/2017 Acute on chronic respiratory failure with hypoxemia ([facility] V24, [facility] V28) 08/02/2017 Overview (09/12/2024): Historical tracheostomy Other secondary pulmonary hy pertension ([facility] V24, [facility] V28) 08/02/2017 Pulmonary emphysema ([facility] V24, [facility] V28) 0 07/29/2017 Thrombocytosis 06/27/2017 Dependence on supplemental oxygen 06/15/2017 Bipolar disorder ([facility] V24, [facility] V28) 05/28 Gastroesophageal reflux disease without esophagi tis 06/08/2017 Insomnia 06/08/2017 Retinal hemorrhage 06/08/2017 Encounters Date Type Department Care Team Description 07/22/2025 Telephone [facility] Radiation Oncology [address] [place] [phone] 07/19/2025 9:23 AM EDT - 07/19/2025 11:59 PM EDT Hospital Encounter [address] [phone] Squamous cell carcinoma of left lung ([facility] V24, [facility] V28) (Primary Dx) Discharge Disposition: Home or Self Care 07/19/[address] [phone] Tika Duarte LMSW 07/16/2025 2:45 PM EDT Office Visit [facility] Hematology Oncology [address] [place] [phone] Lashanda Mcgill DO Squamous cell carcinoma of left lung ([facility] V24, CMS/HCC V28) (Primary Dx); Chronic respiratory failure with hypercapnia (CMS/HCC V24, CMS/HCC V28) 07/16/2025 1:52 PM EDT - 07/16/2025 11:59 PM EDT Hospital Encounter [facility] Radiation Oncology [address] [place] [phone] Idalia Zhou, DILMA Squamous cell carcinoma of left lung (CMS/HCC V24, CMS/HCC V28) (Primary Dx) Discharge Disposition: Home or Self Care 07/10/2025 Telephone [facility] Hematology Oncology [address] [place] [phone] Lashanda Mcgill DO 07/09/2025 12:11 PM EDT - 07/09/2025 11:59 PM EDT Hospital Encounter [facility] Interventional Radiology [address] [place] [phone] Squamous cell carcinoma of left lung ([facility]/HCC V24, [facility] V28) Discharge Disposition: Home or Self Care 07/05/2025 9:44 PM EDT - 07/07/2025 1:04 PM EDT Hospital Encounter [facility] Intermediate Care Unit [address] [place] [phone] Emani Olivarez MD Jones, Christopher, MD Bell, Alistair A, MD Shortness of breath (Primary Dx) Discharge Disposition: Home-Health Care [facility] 06/27/2025 Telephone [facility] Hematology Oncology [address] [place] [phone] Martine Tovar MA 06/25/2025 11:45 AM EDT Office Visit [facility] Hematology Oncology [address] [place] [phone] Sallie Valdez PA Squamous cell carcinoma of left lung ([facility]/HCC V24, CMS/HCC V28) (Primary Dx); Chronic respiratory failure with hypercapnia ([facility]/HCC V24, [facility]/HCC V28); Mild anemia 06/18/2025 10:50 AM EDT - 06/18/2025 11:59 PM EDT Hospital Encounter [facility] Radiation Oncology [address] [place] [phone] Idalia Zhou NP NSCLC of left lung (CMS/HCC V24, CMS/HCC V28) (Primary Dx) Discharge Disposition: Home or Self Care 06/18/2025 10:25 AM EDT - 06/18/2025 11:59 PM EDT Hospital Encounter [facility] Radiation Oncology [address] [place] [phone] Discharge Disposition: Home or Self Care 06/17/2025 10:50 AM EDT - 06/17/2025 11:59 PM EDT Hospital Encounter [facility] Radiation Oncology [address] [place] [phone] Saeid Miles MD NSCLC of left lung (CMS/HCC V24, CMS/HCC V28) (Primary Dx) Discharge Disposition: Home or Self Care 06/17/2025 10:39 AM EDT - 06/17/2025 11:59 PM EDT Hospital Encounter [facility] Radiation Oncology [address] [place] [phone] Discharge Disposition: Home or Self Care 06/14/2025 10:45 AM EDT - 06/14/2025 11:59 PM EDT Hospital Encounter [facility] Radiation Oncology [address] [place] [phone] Discharge Disposition: Home or Self Care 06/13/2025 10:29 AM EDT - 06/13/2025 11:59 PM EDT Hospital Encounter [facility] Radiation Oncology [address] [place] [phone] Discharge Disposition: Home or Self Care 06/12/2025 10:41 AM EDT - 06/12/2025 11:59 PM EDT Hospital Encounter [facility] Radiation Oncology [address] [place] [phone] Discharge Disposition: Home or Self Care 06/11/2025 10:33 AM EDT - 06/11/2025 11:59 PM EDT Hospital Encounter [facility] Radiation Oncology [address] [place] [phone] Discharge Disposition: Home or Self Care 06/10/2025 10:50 AM EDT - 06/10/2025 11:59 PM EDT Hospital Encounter [facility] Radiation Oncology [address] [place] [phone] Saeid Miles MD NSCLC of left lung (CMS/HCC V24, CMS/HCC V28) (Primary Dx) Discharge Disposition: Home or Self Care 06/10/2025 10:44 AM EDT - 06/10/2025 11:59 PM EDT Hospital Encounter [facility] Radiation Oncology [address] [place] [phone] Discharge Disposition: Home or Self Care 06/07/2025 10:45 AM EDT - 06/07/2025 11:59 PM EDT Hospital Encounter [facility] Radiation Oncology [address] [place] [phone] Discharge Disposition: Home or Self Care 06/06/2025 10:26 AM EDT - 06/06/2025 11:59 PM EDT Hospital Encounter [facility] Radiation Oncology [address] [place] [phone] Discharge Disposition: Home or Self Care 06/05/2025 10:45 AM EDT - 06/05/2025 11:59 PM EDT Hospital Encounter [facility] Radiation Oncology [address] [place] [phone] Discharge Disposition: Home or Self Care 06/04/2025 10:45 AM EDT - 06/04/2025 11:59 PM EDT Hospital Encounter [facility] Radiation Oncology [address] [place] [phone] Discharge Disposition: Home or Self Care 06/03/2025 11:46 AM EDT - 06/03/2025 11:59 PM EDT Hospital Encounter [facility] Xray [address] [place] [phone] NSCLC of left lung (CMS/HCC V24, CMS/HCC V28) Discharge Disposition: Home or Self Care 06/03/2025 10:50 AM EDT - 06/03/2025 11:59 PM EDT Hospital Encounter [facility] Radiation Oncology [address] [place] [phone] Saeid Miles MD NSCLC of left lung ([facility]/HCC V24, CMS/HCC V28) (Primary Dx) Discharge Disposition: Home or Self Care 06/03/2025 10:45 AM EDT - 06/03/2025 11:59 PM EDT Hospital Encounter [facility] Radiation Oncology [address] [place] [phone] Discharge Disposition: Home or Self Care 05/30/2025 10:39 AM EDT - 05/30/2025 11:59 PM EDT Hospital Encounter [facility] Radiation Oncology [address] [place] [phone] Discharge Disposition: Home or Self Care 05/28/2025 11:45 AM EDT - 05/28/2025 11:59 PM EDT Hospital Encounter [facility] Radiation Oncology [address] [place] [phone] Katya Barnes MD Discharge Disposition: Home or Self Care 05/28/2025 11:26 AM EDT - 05/28/2025 11:59 PM EDT Hospital Encounter [facility] Radiation Oncology [address] [place] [phone] Discharge Disposition: Home or Self Care 05/24/2025 10:30 AM EDT Office Visit [facility] Hematology Oncology [address] [place] [phone] Lashanda Mcgill DO Squamous cell carcinoma of left lung (CMS/HCC V24, CMS/HCC V28) (Primary Dx) 05/24/2025 8:07 AM EDT - 05/24/2025 11:59 PM EDT Hospital Encounter [facility] Radiation Oncology [address] [place] [phone] Discharge Disposition: Home or Self Care 05/23/2025 8:00 AM EDT - 05/23/2025 11:59 PM EDT Hospital Encounter [facility] Radiation Oncology [address] [place] [phone] Discharge Disposition: Home or Self Care 05/14/2025 1:46 PM EDT - 05/14/2025 11:59 PM EDT Hospital Encounter [facility] Radiation Oncology [address] [place] [phone] Katya Barnes MD NSCLC of left lung (CMS/HCC V24, CMS/HCC V28) Discharge Disposition: Home or Self Care 05/14/2025 1:01 PM EDT - 05/14/2025 11:59 PM EDT Hospital Encounter [facility] Radiation Oncology [address] [place] [phone] NSCLC of left lung (CMS/HCC V24, CMS/HCC V28) (Primary Dx) Discharge Disposition: Home or Self Care 05/10/2025 Telephone [facility] Hematology Oncology [address] [place] [phone] Lashanda Mcgill DO 04/30/2025 1:00 PM EDT - 04/30/2025 11:59 PM EDT Hospital Encounter [facility] Radiation Oncology [address] [place] [phone] Saeid Miles MD NSCLC of left lung (CMS/HCC V24, CMS/HCC V28) (Primary Dx); Squamous cell carcinoma of left lung (CMS/HCC V24, CMS/HCC V28) Discharge Disposition: Home or Self Care 04/30/2025 1:00 PM EDT - 04/30/2025 11:59 PM EDT Hospital Encounter [facility] Radiation Oncology [address] [place] [phone] Discharge Disposition: Home or Self Care 04/25/2025 3:06 PM EDT - 04/25/2025 11:59 PM EDT Hospital Encounter [facility] MRI [address] [place] [phone] Squamous cell carcinoma of left lung (CMS/HCC V24, CMS/HCC V28) Discharge Disposition: Home or Self Care 04/25/2025 Telephone [facility] Radiation Oncology [address] [place] [phone] Radha Traylor MA 04/24/2025 2:32 PM EDT - 04/24/2025 11:59 PM EDT Hospital Encounter [facility] CT Scan [address] [place] [phone] Squamous cell carcinoma of left lung ([facility] V24, [facility] V28) Discharge Disposition: Home or Self Care 04/24/2025 Telephone [facility] Hematology Oncology [address] [place] [phone] Elke Duong RN from Last 3 Months Immunizations Name Administration [...] resp failure TONSILLECTOMY HERNIA REPAIR HAND SURGERY UTERINE FIBROID EMBOLIZATION per family BREAST BIOPSY Medical History Medical History Date Comments Depression 10/09/2017 DX:Depression Bipolar I disorder ([facility] V24, [facility] V28) 06/10/2017 DX:Bipolar I disorder (HCC) Chronic obstructive pulmonar y disease ([facility] V24, [facility] V28) 07/29/2017 DX:Chronic obstructive pulm onary disease (HCC), will bipap Chronic respiratory failure with hypercapnia ([facility] V24, [facility] V28) 08/02/2017 DX:Chronic resp iratory failure with hypercapnia (HCC), uses trelegy machine/ will bring dos Dependence on supplemental oxygen 06/15/2017 DX:Dependence on supplemental oxygen, 3lpm at rest and 6 lpm when moves- Gastroesophageal reflux disease 06/08/2017 DX:Gastroesophageal reflux disease Insomnia 06/08/2017 DX:Insomnia Retinal hemorrhage 06/08/2017 DX:Retinal he morrhage RITA on CPAP 11/08/2017 DX:RITA on CPAP; COMMENT: Life supply/cpap Pulmonary hypertension, secondary 08/02/2017 DX:Pulmonary hypertension, secondary Tobacco user 08/02/2017 DX:Tobacco user. quit 2018 Hypertension Arrhythmia Afib , hx Emphysema of lung ([facility] V 24, [facility] V28) per daughter HL (hearing loss) wears hearing aids Full dentures Lung cancer ([facility] V24, [facility] V28) 03/2025 Asthma 1111 Psychiatric illness Family History Medical History Relation Name Comments No Known Problems Brother 1 No Known Problems Brother 2 Prostate cancer Brother 3 Jose C Skin cancer Brother 3 Jose C No Known Problems Father No Known Problems Mother Diabetes Mother's side Other: kidney Disease Sister 1 Kidney disease Sister 2 Rubia Lung disease Sister 2 Rubia bladder cancer Sister 2 Rubia Relation Name Status Comments Brother 1 Alive Brother 2 Alive Brother 3 Jose C Father Mother Mother's side Alive Sister 1 Alive Sister 2 Rubia Social History Tobacco Use Types Packs/Day Years Used Date Smoking Tobacco: Former Cigarettes 2 40 0 12/30/1972 - 12/30/2006 Smokeless Tobacco: Never Tobacco Cessation:Counseling Given: Not Answered Comments:Quit 2018 Alcohol Use Standard Drinks/Week Comments Not Currently [...] file Not on file Not on file Obstetrics History Last Filed Vital Signs Vital Sign Reading Time Taken Comments Blood Pressure 131/53 07/19/2025 9:35 AM EDT Pulse 73 07/19/2025 9:35 AM EDT Temperature 36.5 C (97.7 F) 07/19/2025 9:35 AM EDT Respiratory Rate 18 07/16/2025 2:03 PM EDT Oxygen Saturation 97% 07/19/2025 9:3 5 AM EDT C 3 LTS OF 02 Inhaled Oxygen Concentration - - Weight 86.7 kg (191 lb 3.2 oz) 07/19/2025 9:35 AM EDT Height 154.9 cm (5' 1 ) 07/16/2025 2:03 PM EDT Body Mass Index 36.13 07/16/2025 2:03 PM EDT Plan of Treatment Upcoming Encounters Date Type Department Care Team (Late st Contact Info) Description 08/01/2025 10:30 AM EDT Appointment [facility] Radiation Oncology [address] [place] [phone] 08/08/2025 10:30 AM EDT Office Visit [facility] Hematology Oncology [address] [place] [phone] Lashanda Mcgill, [address] [place] [address] 08/12/2025 10:00 AM EDT Appointment [facility] Infusion Center [address] [place] [phone] Health Maintenance Due Date Last Done Comments DTaP,Tdap,and Td Vaccines (1 - Tdap) 1973 RSV Immunization Adult Patients (1 - Risk 60-74 years 1-dose series) 2014 Medicare Annual Wellness Visit 10/30/2022 Social Influencers of Health Screening 10/30/2022 Zoster Vaccines (2 of 2) 06/19/2024 04/24/2024 COVID-19 Vaccine ( season) 2024 04/30/2024, 04/24/2024, 04/07/2022, Additional history exists Influenza Vaccine (#1) 2025 , 09/05/2018, 08/24/2015, Additional history exists Breast Cancer Screening 03/22/2026 03/22/20 24, 03/21/2024, 02/16/2023, Additional history exists Hypertension/CHF/CAD Annual BMP Blood Test 07/16/2026 07/16/2025, 07/07/2025, 07/06/2025, Additional history exists Falls Risk Assessment 07/19/2026 07/19/2025, 024 Cholesterol Screening (Lipid Panel) 02/08/2029 02/09/2024 Colorectal Cancer Screening: Colonoscopy 04/27/2029 04/27/2024 Osteoporosis Screening (Bone Density Screening) 03/22/2034 03/22/2024, 03/21/2024 Hepatitis C Screening Completed 02/09/2024 Pneumococcal Vaccine: 50+ Years Completed 04/30/2024, 04/24/2024, 08/24/2015 Depression Screening Completed 07/19/2025, 04/16/20 HIB Vaccines Aged Out No longer eligi [...] age to complete this topic Meningococcal B Vaccine Aged Out No l onger eligible based on patient's age to complete this topic RSV Immunization Patients Under 20 months Aged Out No longer eligible based on patient's age to complete this topic Varicella Vaccines Aged Out No longer eligible based on patient's age to complete this topic Medical Devices Implanted Type Area Director Targeted Marketing Device Identifier Shelf Expiration Date Model / Serial / Lot Port Pwr Isp Attach 6f Interm Galina - [id number] Implanted:Qty : 1 on 07/09/2025 by Jesica Henderson MD at [facility] Central/Per ipheral Catheters and Ports Right: Internal Jugular CR BARD PERIPHERAL VASCULAR [id number] 09/27/2025 [id number] / / [id number] Marker Cobra Superlock - Sna - [id number] Implanted:Qty : 1 on 04/03/2025 by Justine Wong MD at [facility] Imaging Implants Left: Lung COVIDIEN SUPERDIMENSION [id number] 08/27/2028 [id number] / NA / [id number] Description:LEFT UPPER LOBE Procedures Procedure Name Priority Date/Time Associated Diagnosis Comments CBC WITH AUTO DIFFERENTIAL Routine 07/16/2025 3:54 PM EDT Squamous cell carcinoma of left lung (CMS/HCC V24, CMS/HCC V28) COMPREHENSIVE METABOLIC PANEL Routine 07/16/2025 3:54 PM EDT Squamous cell carcinoma of left lung (CMS/HCC V24, CMS/HCC V28) CBC AND DIFFERENTIAL Routine 07/16/2025 3:54 PM EDT Squamous cell carcinoma of left lung (CMS/HCC V24, CMS/HCC V28) MAGNESIUM Routine 07/16/2025 3:54 PM EDT Squamous cell carcinoma of left lung (CMS/HCC V24, CMS/HCC V28) IR INSERT TUNNELED CVAD W SUBQ PORT MORE 5YRS RIGHT Routine 07/09/2025 2:56 PM EDT Squamous cell carcinoma of left lung (CMS/HCC V24, CMS/HCC V28) ECG ANNOTATED 07/08/2025 LAVENDER - EDTA Routine 07/07/2025 5:50 AM EDT EXTRA TUBES Routine 07/07/2025 5:50 AM EDT MAGNESIUM Routine 07/07/2025 5:50 AM EDT BASIC METABOLIC PANEL Routine 07/07/2025 5:50 AM EDT OXYGEN THERAPY, ADULT Routine 07/06/2025 11:19 AM EDT OXYGEN THERAPY, ADULT Routine 07/06/2025 11:19 AM EDT OXYGEN THERAPY, ADULT Routine 07/06/2025 11:19 AM EDT CBC WITH AUTO DIFFERENTIAL Routine 07/06/2025 5:51 AM EDT CBC AND DIFFERENTIAL Routine 07/06/2025 5:51 AM EDT BASIC METABOLIC PANEL Routine 07/06/2025 5:51 AM EDT RESPIRATORY VIRUS PANEL MOLECULAR STUDY STAT 07/06/2025 2:08 AM EDT VENOUS BLOOD GAS STAT 07/06/2025 1:[address] ANGIO CHEST WO AND/OR W CONTRAST STAT 07/06/2025 12:55 AM EDT Shortness of breath XR CHEST 2 VIEWS STAT 07/06/2025 12:5 0 AM EDT TROPONIN I HIGH SENSITIVITY Timed 07/05/2025 11:35 PM EDT C-REACTIVE PROTEIN STAT Add-on 07/05/2025 9: 58 PM EDT CBC WITH AUTO DIFFERENTIAL STAT 07/05/2025 9:58 PM EDT B-TYPE NATRIURETIC PEPTIDE STAT 07/05/2025 9:58 PM EDT MAGNESIUM STAT 07/05/2025 9:58 PM EDT LIPASE STAT 07/05/2025 9:58 PM EDT COMPREHENSIVE METABOLIC PANEL STAT 07/05/2025 9:58 PM EDT CBC AND DIFFERENTIAL STAT 07/05/2025 9:58 PM EDT TROPONIN I HIGH SENSITIVITY Timed 07/05/2025 9:58 PM EDT ECG 12-LEAD STAT 07/05/2025 9:40 PM EDT RAD ONC MSQ TREATMENT SUMMARY Routine 06/18/2025 11:06 AM EDT RAD ONC MSQ TREATMENT SUMMARY Routine 06/17/2025 11:03 AM EDT RAD ONC MSQ TREATMENT SUMMARY Routine 06/14/2025 11:07 AM EDT RAD ONC MSQ TREATMENT SUMMARY Routine 06/13/2025 10:54 AM EDT RAD ONC MSQ TREATMENT SUMMARY Routine 06/12/2025 10:52 AM EDT RAD ONC MSQ TREATMENT SUMMARY Routine 06/11/2025 11:02 AM EDT RAD ONC MSQ TREATMENT SUMMARY Routine 06/10/2025 11:06 AM EDT RAD ONC MSQ TREATMENT SUMMARY Routine 06/07/2025 11:00 AM EDT RAD ONC MSQ TREATMENT SUMMARY Routine 06/06/2025 10:53 AM EDT RAD ONC MSQ TREATMENT SUMMARY Routine 06/05/2025 11:01 AM EDT RAD ONC MSQ TREATMENT SUMMARY Routine 06/04/2025 10:59 AM EDT XR CHEST 2 VIEWS Routine 06/03/2025 11:5 7 AM EDT NSCLC of left lung (CMS/HCC V24, CMS/HCC V28) RAD ONC MSQ TREATMENT SUMMARY Routine 06/03/2025 11:04 AM EDT RAD ONC MSQ TREATMENT SUMMARY Routine 05/30/2025 10:51 AM EDT RAD ONC MSQ TREATMENT SUMMARY Routine 05/29/2025 11:46 AM EDT RAD ONC MSQ TREATMENT SUMMARY Routine 05/28/2025 11:49 AM EDT CBC WITH AUTO DIFFERENTIAL Routine 05/24/2025 11:30 AM EDT Squamous cell carcinoma of left lung (CMS/HCC V24, CMS/HCC V28) CBC AND DIFFERENTIAL Routine 05/24/2025 11:30 AM EDT Squamous cell carcinoma of left lung (CMS/HCC V24, CMS/HCC V28) COMPREHENSIVE METABOLIC PANEL Routine 05/24/2025 11:30 AM EDT 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 SCREENING DIGITAL Routine 03/22/2024 8:50 AM EDT Encounter for screening mammogram for malignant neoplasm of breast [facility] DEXA AXIAL SKELETON Routine 03/22/2024 8:14 AM EDT Encounter for screening for osteoporosis HEPATITIS C SCREENING Routine 02/09/2024 FALLS RISK ASSESSMENT Routine 02/09/2024 LIPID PANEL Routine 02/09/2024 from Last 3 Months or Most Recently Relevant to Health Maintenance Results * (ABNORMAL) CBC auto differential (07/16/2025 3:54 PM EDT) Only the most recent of4 resultswithin the time period is included. WBC 6.7 4.8 - 10.8 K/[facility] LAB HEMETOLOGY METHOD 07/16/2025 4:[address] [facility] RBC 4.20 3.80 - 4.80 M/[facility] LAB HEMETOLOGY METHOD 07/16/2025 4:[address] [facility] Hemoglobin 11.8 11.5 - 16.0 g/dL LAB HEMETOLOGY METHOD 07/16/2025 4:[address] [facility] Hematocrit 39.8 35.0 - 47.0 % LAB HEMETOLOGY METHOD 07/16/2025 4:[facility] MCV 94.1 79.0 - 98.0 FL LAB HEMETOLOGY METHOD 07/16/2025 4:[address] [facility] MCH 27.9 27.0 - 32.0 pcg LAB HEMETOLOGY METHOD 07/16/2025 4:[facility] MCHC 29.6(L) 32.0 - 37.0 g/dL LAB HEMETOLOGY METHOD 07/16/2025 4:[facility] RDW 15.9(H) 11.0 - 15.0 % LAB HEMETOLOGY METHOD 07/16/2025 4:[address] [facility] Platelets 416(H) 130 - 400 K/mcL LAB HEMETOLOGY METHOD 07/16/2025 4:[facility] MPV 9.2 7.0 - 11.0 FL LAB HEMETOLOGY METHOD 07/16/2025 4:[facility] NRBC 0.0 <1.0 % LAB HEMETOLOGY METHOD 07/16/2025 4:[address] [facility] NRBC Absolute 0.00 <0.10 K/mcL LAB HEMETOLOGY METHOD 07/16/2025 4:[facility] Neutrophils Relative 86.6 % LAB HEMETOLOGY METHOD 07/16/2025 4:[facility] Lymphocytes Relative 5.1 % LAB HEMETOLOGY METHOD 07/16/2025 4:[address] [facility] Monocytes Relative 6.4 % LAB HEMETOLOGY METHOD 07/16/2025 4:[address] [facility] Eosinophils Relative 0.3 % LAB HEMETOLOGY METHOD 07/16/2025 4:[facility] Basophils Relative 0.6 % LAB HEMETOLOGY METHOD 07/16/2025 4:[address] [facility] Immature Granulocytes Relative 1.0 % LAB HEMETOLOGY METHOD 07/16/2025 4:[address] [facility] Neutrophils Absolute 5.80 1.50 - 7.00 K/mcL LAB HEMETOLOGY METHOD 07/16/2025 4:44 PM [facility] Lymphocytes Absolute 0.34(L) 1.00 - 5.00 K/mcL LAB HEMETOLOGY METHOD 07/16/2025 4[facility] Monocytes Absolute 0.43 0.20 - 1.00 K/mcL LAB HEMETOLOGY METHOD 07/16/2025 4:[address] [facility] Eosinophils Absolute 0.02 0.00 - 0.50 K/mcL LAB HEMETOLOGY METHOD 07/16/2025 4:44 PM [facility] Basophils Absolute 0.04 0.00 - 0.20 K/mcL LAB HEMETOLOGY METHOD 07/16/2025 4:[facility] Immature Granulocytes Absolute 0.07(H) 0.00 - 0.03 K/mcL LAB HEMETOLOGY METHOD 07/16/2025 4:44 PM [facility] Blood Venous blood specimen / Unknown Venipuncture / Unknown 07/16/2025 3:54 PM EDT 07/16/2025 4:33 PM EDT us Lashanda Mcgill DO LAB BLOOD ORDERABLES Final Result [facility] [address] [place] [address], [place] [phone] * Magnesium (07/16/2025 3:54 PM EDT) Only the most recent of3 resultswithin the time period is included. Pathologist [facility] Magnesium 2.2 1.9 - 2.6 mg/dL LAB CHEMISTRY METHOD 07/16/2025 5:[address] [facility] Blood Venous blood specimen / Unknown Venipuncture / Unknown 07/16/2025 3:54 PM EDT 07/16/2025 4:32 PM EDT Lashanda Mcgill DO LAB BLOOD ORDERABLES Final Result Performing Organization Address [facility] de Phone Number [facility] [address] [place] [address], * (ABNORMAL) Comprehensive metabolic panel (07/16/2025 3:54 PM EDT) Only the most recent of3 resultswithin the time period is included. [facility] Sodium 138 133 - 145 mmol/L LAB CHEMISTRY METHOD 07/16/2025 5:[address] [facility] Potassium 4.2 3.5 - 5.5 mmol/L LAB CHEMISTRY METHOD 07/16/2025 5:[address] [facility] Chloride 96 96 - 110 mmol/L LAB CHEMISTRY METHOD 07/16/2025 5:[address] [facility] CO2 42(HH) 21 - 32 mmol/L LAB CHEMISTRY METHOD 07/16/2025 5:[address] [facility] Anion Gap 0(L) 3 - 11 LAB CHEMISTRY METHOD 07/16/2025 5:[facility] Glucose 88 70 - 100 mg/dL LAB CHEMISTRY METHOD 07/16/2025 5:[address] [facility] BUN 22 5 - 25 mg/dL LAB CHEMISTRY METHOD 07/16/2025 5:32 PM [facility] Creatinine 0.99 0.50 - 1.10 mg/dL LAB CHEMISTRY METHOD 07/16/2025 5:32 PM [facility] eGFR 61 >=60 mL/min/1. 73m2 LAB CHEMISTRY METHOD 07/16/2025 5:32 PM [facility] Comment:Calculation based on the Chronic Kidney Disease Epidemiology Collaboration (CKD-EPI) equation refit without adjustment for race. BUN/Creatinine Ratio 22.2 LAB CHEMISTRY METHOD 07/16/2025 5:32 PM [facility] Calcium 9.7 8.5 - 10.5 mg/dL LAB CHEMISTRY METHOD 07/16/2025 5:32 PM [facility] AST (SGOT) 20 10 - 42 unit/L LAB CHEMISTRY METHOD 07/16/2025 5:32 PM [facility] ALT (SGPT) 23 10 - 60 unit/L LAB CHEMISTRY METHOD 07/16/2025 5:32 PM [facility] Alkaline Phosphatase 81 42 - 121 unit/L LAB CHEMISTRY METHOD 07/16/2025 5:32 PM [facility] Total Protein 7.0 6.0 - 8.0 g/dL LAB CHEMISTRY METHOD 07/16/2025 5:32 PM [facility] Albumin 3.7 3.2 - 5.0 g/dL LAB CHEMISTRY METHOD 07/16/2025 5:32 PM [facility] Total Bilirubin 0.2 0.0 - 1.4 mg/dL LAB CHEMISTRY METHOD 07/16/2025 5:32 PM [facility] Blood Venous blood specimen / Unknown Venipuncture / Unknown 07/16/2025 3:54 PM EDT 07/16/2025 4:32 PM EDT Lashanda Jaffeuliffe DO LAB BLOOD ORDERABLES Final Result [facility] ([facility]) [facility] [address] [place] [address], [place] [phone] * IR Insert Tunneled CVAD w Subq Port More 5yrs Right (07/09/2025 2:56 PM EDT) Anatomical Region Laterality Modality Right Interventional R adiology 07/09/2025 3:20 PM EDT Impressions 07/09/2025 3:22 PM EDT Port-A-Cath placement. -------- FINAL REPORT -------- Dictated By: Jesica Henderson Dictated Date: 07/09/2025 15:20 ET Assigned Physician: Jesica Henderson Reviewed and Electronically Signed By: Jesica Henderson Signed Date: 07/09/2025 15:22 ET Workstation ID: [id number] Transcribed By: Self Edit Transcribed Date: 07/09/2025 15:21 ET Narrative 07/09/2025 3:22 PM EDT INDICATION: Lung carcinoma PROCEDURE: Power injectable Port-A-Cath placement under moderate sedation. MEDICATIONS: Local anesthesia: 20 cc of 1% buffered lidocaine administered subcutaneously during the procedure. Sedation: Moderate intravenous sedation was initiated and maintained for 45 minutes while the patient was independently monitored by the radiology nurse under the supervision of the interventional radiologist. A total of 3 mg of Versed and 100 mcg of fentanyl administered during the procedure. Total patient dose (air kerma): 107 mGy TECHNIQUE: After informed consent was obtained the patient was placed supine on the angiographic table and the right lower neck and upper chest were draped and prepped using maximum sterile barrier. Moderate sedation initiated and then local anesthetic administered. Intravenous access was obtained under real-time ultrasound guidance into the internal jugular vein using a micropuncture set. The microwire was then exchanged for a 0.035 Amplatz wire which was advanced under fluoroscopy into the inferior vena cava. Attention was then turned to the upper chest wall where the appropriate region was localized and anesthetized. A horizontal incision was made approximately 3 cm in length. Using blunt dissection a subcutaneous pocket was formed for placement of the port. A subcutaneous tunnel was then performed from the pocket to the initial venous access site. The catheter was advanced through the tunnel. After hemostasis was achieved the port was attached to the catheter and placed within the pocket. An 8 Turkish peel-away sheath with a hemostatic valve placed at the initial venous access site. The catheter was then cut to length and advanced through the peel-away sheath. The peel-away sheath was removed and position of the catheter was checked under fluoroscopy. The catheter was then flushed and heparinized as per protocol. The port pocket was closed with subcutaneous 3-0 Vicryl sutures. Dermabond applied along the initial venous access site and over the port incision site. The patient tolerated the procedure well and left the department in stable condition without immediate complications. FINDINGS: Single ultrasound image demonstrates patent right internal jugular vein. Single fluoroscopic image of the chest shows newly placed Port-A-Cath with tip near the distal superior vena cava. Procedure Note Jesica Henderson MD - 07/09/2025 INDICATION: Lung carcinoma PROCEDURE: Power injectable Port-A-Cath placement under moderatesedation. MEDICATIONS: Local anesthesia: 20 cc of 1% buffered lidocaine administeredsubcutaneously during the procedure. Sedation: Moderate intravenous sedation was initiated and maintained for45 minutes while the patient was independently monitored by the radiologynurse under the supervision of the interventional radiologist. A total of3 mg of Versed and 100 mcg of fentanyl administered during theprocedure. Total patient dose (air kerma): 107 mGy TECHNIQUE: After informed consent was obtained the patient was placedsupine on the angiographic table and the right lower neck and upper chestwere draped and prepped using maximum sterile barrier. Moderate sedationinitiated and then local anesthetic administered. Intravenous access was obtained under real-time ultrasound guidance intothe internal jugular vein using a micropuncture set. The microwire wasthen exchanged for a 0.035 Amplatz wire which was advanced underfluoroscopy into the inferior vena cava. Attention was then turned to the upper chest wall where the appropriateregion was localized and anesthetized. A horizontal incision was madeapproximately 3 cm in length. Using blunt dissection a subcutaneous pocketwas formed for placement of the port. A subcutaneous tunnel was thenperformed from the pocket to the initial venous access site. The catheterwas advanced through the tunnel. After hemostasis was achieved the portwas attached to the catheter and placed within the pocket. An 8 Frenchpeel-away sheath with a hemostatic valve placed at the initial venousaccess site. The catheter was then cut to length and advanced through thepeel-away sheath. The peel-away sheath was removed and position of thecatheter was checked under fluoroscopy. The catheter was then flushed and heparinized as per protocol. The portpocket was closed with subcutaneous 3-0 Vicryl sutures. Dermabond appliedalong the initial venous access site and over the port incision site. The patient tolerated the procedure well and left the department in stablecondition without immediate complications. FINDINGS: Single ultrasound image demonstrates patent right internaljugular vein. Single fluoroscopic image of the chest shows newly placed Port-A-Cath withtip near the distal superior vena cava. IMPRESSION: Port-A-Cath placement. -------- FINAL REPORT -------- Dictated By: Jesica Henderson Dictated Date: 07/09/2025 15:20 ET Assigned Physician: Jesica Henderson Reviewed and Electronically Signed By: Jesica Henderson Signed Date: 07/09/2025 15:22 ET Workstation ID: [id number] Transcribed By: Self Edit Transcribed Date: 07/09/2025 15:21 ET us Sallie TABARES IMG IR PROCEDURES Final Resul t * ECG-Annotated (07/08/2025) us Provider Onbase ECG ORDERABLES Final Result * Lavender tube (07/07/2025 5:50 AM EDT) Extra Tube Hold for add-ons. 07/07/2025 8:01 AM EDT [facility] Comment:Auto resulted. Blood Venous blood specimen / Unknown Venipuncture / Unknown 07/07/2025 5:50 AM EDT 07/07/2025 6:28 AM EDT us Sathish Erwin MD LAB BLOOD ORDERABLES Final Re sult [facility] [address] [place] [address], * (ABNORMAL) Basic metabolic panel (07/07/2025 5:50 AM EDT) Only the most recent of2 resultswithin the time period is included. Sodium 140 133 - 145 mmol/L LAB CHEMISTRY METHOD 07/07/2025 7:[address] [facility] Potassium 4.0 3.5 - 5.5 mmol/L LAB CHEMISTRY METHOD 07/07/2025 7:34 AM [facility] Chloride 92(L) 96 - 110 mmol/L LAB CHEMISTRY METHOD 07/07/2025 7:34 AM [facility] CO2 45(HH) 21 - 32 mmol/L LAB CHEMISTRY METHOD 07/07/2025 7:34 AM [facility] Anion Gap 3 3 - 11 LAB CHEMISTRY METHOD 07/07/2025 7:34 AM [facility] Glucose 88 70 - 100 mg/dL LAB CHEMISTRY METHOD 07/07/2025 7:34 AM [facility] BUN 14 5 - 25 mg/dL LAB CHEMISTRY METHOD 07/07/2025 7:34 AM [facility] Creatinine 0.86 0.50 - 1.10 mg/dL LAB CHEMISTRY METHOD 07/07/2025 7:34 AM [facility] eGFR 72 >=60 mL/min/1. 73m2 LAB CHEMISTRY METHOD 07/07/2025 7:34 AM [facility] Comment:Calculation based on the Chronic Kidney Disease Epidemiology Collaboration (CKD-EPI) equation refit without adjustment for race. BUN/Creatinine Ratio 16.3 LAB CHEMISTRY METHOD 07/07/2025 7:34 AM [facility] Calcium 8.3(L) 8.5 - 10.5 mg/dL LAB CHEMISTRY METHOD 07/07/2025 7:34 AM [facility] Blood Venous blood specimen / Unknown Venipuncture / Unknown 07/07/2025 5:50 AM EDT 07/07/2025 6:24 AM EDT us Sathish Erwin MD LAB BLOOD ORDERABLES Final Re sult [facility] [address] [place] [address], * Respiratory virus panel molecular study (07/06/2025 2:08 AM EDT) Adenovirus Detection by PCR Not Detected Not Detected LAB MICROBIOLOGY METHOD 07/06/2025 4:[address] [facility] Influenza A PCR Not Detected Not Detected LAB MICROBIOLOGY METHOD 07/06/2025 4:[address] [facility] Influenza B PCR Not Detected Not Detected LAB MICROBIOLOGY METHOD 07/06/2025 4:[address] [facility] Coronavirus 229E Not Detected Not Detected LAB MICROBIOLOGY METHOD 07/06/2025 4:[address] [facility] Coronavirus HKU1 Not Detected Not Detected LAB MICROBIOLOGY METHOD 07/06/2025 4:[address] [facility] Coronavirus OC43 Not Detected Not Detected LAB MICROBIOLOGY METHOD 07/06/2025 4:[address] [facility] Coronavirus NL63 Not Detected Not Detected LAB MICROBIOLOGY METHOD 07/06/2025 4:[address] [facility] Parainfluenza Virus 1 Not Detected Not Detected LAB MICROBIOLOGY METHOD 07/06/2025 4:[address] [facility] Parainfluenza Virus 2 Not Detected Not Detected LAB MICROBIOLOGY METHOD 07/06/2025 4:[address] [facility] Parainfluenza Virus 3 Not Detected Not Detected LAB MICROBIOLOGY METHOD 07/06/2025 4:[address] [facility] Parainfluenza Virus 4 Not Detected Not Detected LAB MICROBIOLOGY METHOD 07/06/2025 4:[address] [facility] RSV PCR Not Detected Not Detected LAB MICROBIOLOGY METHOD 07/06/2025 4:[address] [facility] Human Metapneumovirus A and B Not Detected Not Detected LAB MICROBIOLOGY METHOD 07/06/2025 4:[address] [facility] Rhinovirus/Entero virus Not Detected Not Detected LAB MICROBIOLOGY METHOD 07/06/2025 4:[address] [facility] Bordetella pertussis Not Detected Not Detected LAB MICROBIOLOGY METHOD 07/06/2025 4:[address] [facility] Bordetella parapertussis Not Detected Not Detected LAB MICROBIOLOGY METHOD 07/06/2025 4:[facility] Mycoplasma pneumo by PCR Not Detected Not Detected LAB MICROBIOLOGY METHOD 07/06/2025 4:[address] [facility] Chlamydia pneumoniae Not Detected Not Detected LAB MICROBIOLOGY METHOD 07/06/2025 4:[address] [facility] SARS COV-2 Not Detected Not Detected LAB MICROBIOLOGY METHOD 07/06/2025 4:[address] [facility] Swab Nasopharyngeal structure / Unknown Non-blood Collection / Unknown 07/06/2025 2:08 AM EDT 07/06/2025 3:41 AM EDT [facility] - 07/06/2025 4:37 AM EDT Testing was performed using the [employer] Respiratory Pathogen PCR Assay. All results must be correlated with the clinical findings. Results should not be used as the sole basis for diagnosis. False Negative results may occur from the presence of sequence variants in the region targeted by the assay or the presence of inhibitors. Results may be affected by concurrent antiviral/antimicrobial therapy or levels of organisms that are below the limit of detection. Eitan Melchor MD LAB MICROBIOLOGY - GENERAL ORDERABLES Final Result [facility] [address] [place] [address], * (ABNORMAL) Venous blood gas (07/06/2025 1:08 AM EDT) pH, Feliz 7.38 7.32 - 7.42 pH 07/06/2025 1:[address] [facility] pCO2, Feliz 85(HH) 41 - 51 mmHg 07/06/2025 1:[address] [facility] pO2, Feliz 41(H) 25 - 40 mmHg 07/06/2025 1:[address] [facility] HCO3, Venous 40.8(H) 22.0 - 26.0 mmol/L 07/06/2025 1:[address] [facility] O2 Sat, Feliz 73.4 % 07/06/2025 1:[address] [facility] Base Excess, Feliz 21.1(H) -2.0 - 2.0 mmol/L 07/06/2025 1:[address] [facility] Blood Venous blood specimen / Unknown Venipuncture / Unknown 07/06/2025 1:08 AM EDT 07/06/2025 1:19 AM EDT Emani Olivarez MD LAB BLOOD ORDERABLES Final Resul t Performing Organization Address [facility]/ZIP Co de Phone Number [facility] [address] [place] [address], * CT Angio Chest wo and/or w Contrast (07/06/2025 12:55 AM EDT) Anatomical Region Laterality Modality Body Computed Tomogra phy 07/06/2025 1:30 AM EDT Impressions 07/06/2025 1:30 AM EDT No pulmonary embolus. Severe emphysema and scarring in the left apex. Correlate site of initial lung cancer with history. This document has been electronically signed by: Karthikeyan Ghotra MD on 07/06/2025 01:30:54 Narrative 07/06/2025 1:30 AM EDT INDICATION: PE suspected, high prob CT angiography chest with contrast. 3D Postprocessing. Comparison: None provided Findings: The heart size is normal. RV/LV ratio is normal. Unremarkable thoracic aorta and great vessels. No aneurysm. No acute pulmonary embolus. The visualized thyroid and mediastinum are unremarkable. Severe emphysema and scarring in the left apex. Correlate with history the site of initial lung cancer. No consolidation or pleural effusions. The upper abdomen is unremarkable. Multiple healed left lower rib fractures. Procedure Note Karthikeyan Ghotra MD - 07/06/2025 INDICATION: PE suspected, high prob CT angiography chest with contrast. 3D Postprocessing. Comparison: None provided Findings: The heart size is normal. RV/LV ratio is normal. Unremarkable thoracic aorta and great vessels. No aneurysm. No acute pulmonary embolus. The visualized thyroid and mediastinum are unremarkable. Severe emphysema and scarring in the left apex. Correlate with historythe site of initial lung cancer. No consolidation or pleural effusions. The upper abdomen is unremarkable. Multiple healed left lower rib fractures. IMPRESSION: No pulmonary embolus. Severe emphysema and scarring in the left apex. Correlate site ofinitial lung cancer with history. This document has been electronically signed by: Karthikeyan Ghotra MD on 07/06/2025 01:30:54 Emani Olivarez MD IMG CT PROCEDURES Final Result * XR Chest 2 Views (07/06/2025 12:50 AM EDT) Only the most recent of2 resultswithin the time period is included. Anatomical Region Laterality Modality Body Radiographic Heydi ging 07/06/2025 8:03 AM EDT Impressions 07/06/2025 8:08 AM EDT No significant change compared with 06/03/2025. -------- FINAL REPORT -------- Dictated By: Romeo Kent Dictated Date: 07/06/2025 08:03 ET Assigned Physician: Romeo Kent Reviewed and Electronically Signed By: Romeo Kent Signed Date: 07/06/2025 08:08 ET Workstation ID: [id number] Transcribed By: Self Edit Transcribed Date: 07/06/2025 08:03 ET Narrative 07/06/2025 8:08 AM EDT PROCEDURE: PA and lateral radiographs of the chest. HISTORY: chest pain. COMPARISON: 06/03/2025. FINDINGS: Upper normal heart size. Atherosclerotic calcification of the aorta. Slightly less confluent masslike or nodular opacity in the upper left lung with an adjacent linear markings suggestive of a postbiopsy marker clip. Linear markings at the bases suggesting atelectasis and/or scarring. Degenerative changes of the spine. Several remote healed rib fractures. Stable mild superior endplate deformity of one of the lower thoracic vertebral bodies. Procedure Note Romeo Kent MD - 07/06/2025 PROCEDURE: PA and lateral radiographs of the chest. HISTORY: chest pain. COMPARISON: 06/03/2025. FINDINGS: Upper normal heart size. Atherosclerotic calcification of the aorta.Slightly less confluent masslike or nodular opacity in the upper left lungwith an adjacent linear markings suggestive of a postbiopsy marker clip.Linear markings at the bases suggesting atelectasis and/or scarring.Degenerative changes of the spine. Several remote healed rib fractures.Stable mild superior endplate deformity of one of the lower thoracicvertebral bodies. IMPRESSION: No significant change compared with 06/03/2025. -------- FINAL REPORT -------- Dictated By: Romeo Kent Dictated Date: 07/06/2025 08:03 ET Assigned Physician: Romeo Kent Reviewed and Electronically Signed By: Romeo Kent Signed Date: 07/06/2025 08:08 ET Workstation ID: [id number] Transcribed By: Self Edit Transcribed Date: 07/06/2025 08:03 ET Emani Olivarez MD IMG XR PROCEDURES Final Result * Troponin I high sensitivity (07/05/2025 11:35 PM EDT) Only the most recent of2 resultswithin the time period is included. [facility] High Sensitivity Troponin I 8 <=54 ng/L LAB CHEMISTRY METHOD 07/06/2025 12:[address] [facility] Blood Venous blood specimen / Unknown Venipuncture / Unknown 07/05/2025 11:35 PM EDT 07/06/2025 12:[address] [facility] - 07/06/2025 12:37 AM EDT High levels of biotin in samples may falsely decrease hsTroponin values. Use caution when interpreting hsTroponin results in patients taking biotin who exhibit renal impairment (eGFR <60) or in patients taking more than 20 mg/day of biotin. Emani Olivarez MD LAB BLOOD ORDERABLES Final Resul t [facility] [address] [place] [address], * (ABNORMAL) C-reactive protein (07/05/2025 9:58 PM EDT) [facility] C-Reactive Protein 0.87(H) <=0.50 mg/dL LAB CHEMISTRY METHOD 07/06/2025 2:[address] [facility] Blood Venous blood specimen / Unknown Venipuncture / Unknown 07/05/2025 9:58 PM EDT 07/05/2025 10:23 PM EDT Eitan Melchor MD LAB BLOOD ORDERABLES Final Result [facility] [address] [place] [address], * B-type natriuretic peptide (07/05/2025 9:58 PM EDT) [facility] BNP 86 <=100 pcg/mL LAB CHEMISTRY METHOD 07/05/2025 11:[address] [facility] Blood Venous blood specimen / Unknown Venipuncture / Unknown 07/05/2025 9:58 PM EDT 07/05/2025 10:23 PM EDT us Emani Olivarez MD LAB BLOOD ORDERABLES Final Resul t Performing Organization Address [facility]/ZIP Co de Phone Number [facility] [address] [place] [address], [place] [phone] * Lipase (07/05/2025 9:58 PM EDT) [facility] Lipase 28 13 - 75 unit/L LAB CHEMISTRY METHOD 07/05/2025 11:[address] [facility] Blood Venous blood specimen / Unknown Venipuncture / Unknown 07/05/2025 9:58 PM EDT 07/05/2025 10:23 PM EDT us Emani Olivarez MD LAB BLOOD ORDERABLES Final Resul t Performing Organization Address [facility] de Phone Number [facility] [address] [place] [address], [place] [phone] * ECG 12 lead (07/05/2025 9:40 PM EDT) Ventricular Rate ECG 70 BPM GEMUSE Atrial Rate 70 BPM GEMUSE P-R Interval 130 ms GEMUSE QRS Duration 90 ms GEMUSE Q-T Interval 384 ms GEMUSE QTc 414 ms GEMUSE P Wave [place] 50 degrees GEMUSE R [place] 72 degrees GEMUSE T [place] 52 degrees GEMUSE ECG Interpretation Sinus rhythm with Premature atrial complexes When compared with ECG of 06-MAR-2025 11:59, Premature atrial complexes are now Present Confirmed by VERONICA REYNOLDS ([id number]) on 07/08/2025 12:08:31 AM GEMUSE 07/05/2025 9:40 PM EDT 07/08/2025 12:08 AM EDT us Emani Olivarez MD ECG ORDERABLES Final Result GEMUSE * Rad Onc Msq Treatment Summary (06/18/2025 11:06 AM EDT) Treatment Site Left lung MOSAI Q RADIATION ONCOLOGY Course Number 1 MOSAIQ RADIATION ONCOLOGY Prescribed Fractional Dose 400 cGray MOSAIQ RADIATION ONCOLOGY Prescribed Total Dose 6,000 cGray MOSAIQ RADIATION ONCOLOGY Actual Fractions Delivered 15 MOSAIQ RADIATION ONCOLOGY Actual Session Delivered Dose 400 cGray MOSAIQ RADIATION ONCOLOGY Actual Total Dose 6,000 cGray MOSAIQ RADIATION ONCOLOGY Prescribed Technique 2 arc VMAT MOSAIQ RADIATION ONCOLOGY Elapsed Days 21 MOSAIQ RADIATION ONCOLOGY Start Date 05/28/2025 MOSAIQ RADIATION ONCOLOGY Last Date 06/18/2025 MOSAIQ RADIATION ONCOLOGY Prescribed Number of Fractions 15 MOSAIQ RADIATION ONCOLOGY 06/18/2025 11:0 6 AM EDT Physician Radiation Oncology RADIATION ONCOLO GY ORDERABLES Final Result Performing Organization Address City/[facility]/ZIP Co de Phone Number MOSAIQ RADIATION ONCOLOGY * Rad Onc Msq Treatment Summary (06/17/2025 11:03 AM EDT) Treatment Site Left lung MOSAI Q RADIATION ONCOLOGY Course Number 1 MOSAIQ RADIATION ONCOLOGY Prescribed Fractional Dose 400 cGray MOSAIQ RADIATION ONCOLOGY Prescribed Total Dose 6,000 cGray MOSAIQ RADIATION ONCOLOGY Actual Fractions Delivered 14 MOSAIQ RADIATION ONCOLOGY Actual Session Delivered Dose 400 cGray MOSAIQ RADIATION ONCOLOGY Actual Total Dose 5,600 cGray MOSAIQ RADIATION ONCOLOGY Prescribed Technique 2 arc VMAT MOSAIQ RADIATION ONCOLOGY Elapsed Days 20 MOSAIQ RADIATION ONCOLOGY Start Date 05/28/2025 MOSAIQ RADIATION ONCOLOGY Last Date 06/17/2025 MOSAIQ RADIATION ONCOLOGY Prescribed Number of Fractions 15 MOSAIQ RADIATION ONCOLOGY 06/17/2025 11:0 3 AM EDT Physician Radiation Oncology RADIATION ONCOLO GY ORDERABLES Final Result MOSAIQ RADIATION ONCOLOGY * Rad Onc Msq Treatment Summary (06/14/2025 11:07 AM EDT) Treatment Site Left lung MOSAI Q RADIATION ONCOLOGY Course Number 1 MOSAIQ RADIATION ONCOLOGY Prescribed Fractional Dose 400 cGray MOSAIQ RADIATION ONCOLOGY Prescribed Total Dose 6,000 cGray MOSAIQ RADIATION ONCOLOGY Actual Fractions Delivered 13 MOSAIQ RADIATION ONCOLOGY Actual Session Delivered Dose 400 cGray MOSAIQ RADIATION ONCOLOGY Actual Total Dose 5,200 cGray MOSAIQ RADIATION ONCOLOGY Prescribed Technique 2 arc VMAT MOSAIQ RADIATION ONCOLOGY Elapsed Days 17 MOSAIQ RADIATION ONCOLOGY Start Date 05/28/2025 MOSAIQ RADIATION ONCOLOGY Last Date 06/14/2025 MOSAIQ RADIATION ONCOLOGY Prescribed Number of Fractions 15 MOSAIQ RADIATION ONCOLOGY 06/14/2025 11:0 7 AM EDT Physician Radiation Oncology RADIATION ONCSARA GY ORDERABLES Final Result MOSAIQ RADIATION ONCOLOGY * Rad Onc Msq Treatment Summary (06/13/2025 10:54 AM EDT) Treatment Site Left lung MOSAI Q RADIATION ONCOLOGY Course Number 1 MOSAIQ RADIATION ONCOLOGY Prescribed Fractional Dose 400 cGray MOSAIQ RADIATION ONCOLOGY Prescribed Total Dose 6,000 cGray MOSAIQ RADIATION ONCOLOGY Actual Fractions Delivered 12 MOSAIQ RADIATION ONCOLOGY Actual Session Delivered Dose 400 cGray MOSAIQ RADIATION ONCOLOGY Actual Total Dose 4,800 cGray MOSAIQ RADIATION ONCOLOGY Prescribed Technique 2 arc VMAT MOSAIQ RADIATION ONCOLOGY Elapsed Days 16 MOSAIQ RADIATION ONCOLOGY Start Date 05/28/2025 MOSAIQ RADIATION ONCOLOGY Last Date 06/13/2025 MOSAIQ RADIATION ONCOLOGY Prescribed Number of Fractions 15 MOSAIQ RADIATION ONCOLOGY 06/13/2025 10:5 4 AM EDT Physician Radiation Oncology RADIATION ONCSARA GY ORDERABLES Final Result MOSAIQ RADIATION ONCOLOGY * Rad Onc Msq Treatment Summary (06/12/2025 10:52 AM EDT) Treatment Site Left lung MOSAI Q RADIATION ONCOLOGY Course Number 1 MOSAIQ RADIATION ONCOLOGY Prescribed Fractional Dose 400 cGray MOSAIQ RADIATION ONCOLOGY Prescribed Total Dose 6,000 cGray MOSAIQ RADIATION ONCOLOGY Actual Fractions Delivered 11 MOSAIQ RADIATION ONCOLOGY Actual Session Delivered Dose 400 cGray MOSAIQ RADIATION ONCOLOGY Actual Total Dose 4,400 cGray MOSAIQ RADIATION ONCOLOGY Prescribed Technique 2 arc VMAT MOSAIQ RADIATION ONCOLOGY Elapsed Days 15 MOSAIQ RADIATION ONCOLOGY Start Date 05/28/2025 MOSAIQ RADIATION ONCOLOGY Last Date 06/12/2025 MOSAIQ RADIATION ONCOLOGY Prescribed Number of Fractions 15 MOSAIQ RADIATION ONCOLOGY 06/12/2025 10:5 2 AM EDT Physician Radiation Oncology RADIATION ONCOLO GY ORDERABLES Final Result MOSAIQ RADIATION ONCOLOGY * Rad Onc Msq Treatment Summary (06/11/2025 11:02 AM EDT) Treatment Site Left lung MOSAI Q RADIATION ONCOLOGY Course Number 1 MOSAIQ RADIATION ONCOLOGY Prescribed Fractional Dose 400 cGray MOSAIQ RADIATION ONCOLOGY Prescribed Total Dose 6,000 cGray MOSAIQ RADIATION ONCOLOGY Actual Fractions Delivered 10 MOSAIQ RADIATION ONCOLOGY Actual Session Delivered Dose 400 cGray MOSAIQ RADIATION ONCOLOGY Actual Total Dose 4,000 cGray MOSAIQ RADIATION ONCOLOGY Prescribed Technique 2 arc VMAT MOSAIQ RADIATION ONCOLOGY Elapsed Days 14 MOSAIQ RADIATION ONCOLOGY Start Date 05/28/2025 MOSAIQ RADIATION ONCOLOGY Last Date 06/11/2025 MOSAIQ RADIATION ONCOLOGY Prescribed Number of Fractions 15 MOSAIQ RADIATION ONCOLOGY 06/11/2025 11:0 2 AM EDT Physician Radiation Oncology RADIATION ONCSARA GY ORDERABLES Final Result MOSAIQ RADIATION ONCOLOGY * Rad Onc Msq Treatment Summary (06/10/2025 11:06 AM EDT) Treatment Site Left lung MOSAI Q RADIATION ONCOLOGY Course Number 1 MOSAIQ RADIATION ONCOLOGY Prescribed Fractional Dose 400 cGray MOSAIQ RADIATION ONCOLOGY Prescribed Total Dose 6,000 cGray MOSAIQ RADIATION ONCOLOGY Actual Fractions Delivered 9 MOSAIQ RADIATION ONCOLOGY Actual Session Delivered Dose 400 cGray MOSAIQ RADIATION ONCOLOGY Actual Total Dose 3,600 cGray MOSAIQ RADIATION ONCOLOGY Prescribed Technique 2 arc VMAT MOSAIQ RADIATION ONCOLOGY Elapsed Days 13 MOSAIQ RADIATION ONCOLOGY Start Date 05/28/2025 MOSAIQ RADIATION ONCOLOGY Last Date 06/10/2025 MOSAIQ RADIATION ONCOLOGY Prescribed Number of Fractions 15 MOSAIQ RADIATION ONCOLOGY 06/10/2025 11:0 6 AM EDT us Physician Radiation Oncology RADIATION ONCOLO GY ORDERABLES Final Result MOSAIQ RADIATION ONCOLOGY * Rad Onc Msq Treatment Summary (06/07/2025 11:00 AM EDT) Treatment Site Left lung MOSAI Q RADIATION ONCOLOGY Course Number 1 MOSAIQ RADIATION ONCOLOGY Prescribed Fractional Dose 400 cGray MOSAIQ RADIATION ONCOLOGY Prescribed Total Dose 6,000 cGray MOSAIQ RADIATION ONCOLOGY Actual Fractions Delivered 8 MOSAIQ RADIATION ONCOLOGY Actual Session Delivered Dose 400 cGray MOSAIQ RADIATION ONCOLOGY Actual Total Dose 3,200 cGray MOSAIQ RADIATION ONCOLOGY Prescribed Technique 2 arc VMAT MOSAIQ RADIATION ONCOLOGY Elapsed Days 10 MOSAIQ RADIATION ONCOLOGY Start Date 05/28/2025 MOSAIQ RADIATION ONCOLOGY Last Date 06/07/2025 MOSAIQ RADIATION ONCOLOGY Prescribed Number of Fractions 15 MOSAIQ RADIATION ONCOLOGY 06/07/2025 11:0 0 AM EDT Physician Radiation Oncology RADIATION ONCOLO GY ORDERABLES Final Result MOSAIQ RADIATION ONCOLOGY * Rad Onc Msq Treatment Summary (06/06/2025 10:53 AM EDT) Treatment Site Left lung MOSAI Q RADIATION ONCOLOGY Course Number 1 MOSAIQ RADIATION ONCOLOGY Prescribed Fractional Dose 400 cGray MOSAIQ RADIATION ONCOLOGY Prescribed Total Dose 6,000 cGray MOSAIQ RADIATION ONCOLOGY Actual Fractions Delivered 7 MOSAIQ RADIATION ONCOLOGY Actual Session Delivered Dose 400 cGray MOSAIQ RADIATION ONCOLOGY Actual Total Dose 2,800 cGray MOSAIQ RADIATION ONCOLOGY Prescribed Technique 2 arc VMAT MOSAIQ RADIATION ONCOLOGY Elapsed Days 9 MOSAIQ RADIATION ONCOLOGY Start Date 05/28/2025 MOSAIQ RADIATION ONCOLOGY Last Date 06/06/2025 MOSAIQ RADIATION ONCOLOGY Prescribed Number of Fractions 15 MOSAIQ RADIATION ONCOLOGY 06/06/2025 10:5 3 AM EDT us Physician Radiation Oncology RADIATION ONCOLO GY ORDERABLES Final Result MOSAIQ RADIATION ONCOLOGY * Rad Onc Msq Treatment Summary (06/05/2025 11:01 AM EDT) Treatment Site Left lung MOSAI Q RADIATION ONCOLOGY Course Number 1 MOSAIQ RADIATION ONCOLOGY Prescribed Fractional Dose 400 cGray MOSAIQ RADIATION ONCOLOGY Prescribed Total Dose 6,000 cGray MOSAIQ RADIATION ONCOLOGY Actual Fractions Delivered 6 MOSAIQ RADIATION ONCOLOGY Actual Session Delivered Dose 400 cGray MOSAIQ RADIATION ONCOLOGY Actual Total Dose 2,400 cGray MOSAIQ RADIATION ONCOLOGY Prescribed Technique 2 arc VMAT MOSAIQ RADIATION ONCOLOGY Elapsed Days 8 MOSAIQ RADIATION ONCOLOGY Start Date 05/28/2025 MOSAIQ RADIATION ONCOLOGY Last Date 06/05/2025 MOSAIQ RADIATION ONCOLOGY Prescribed Number of Fractions 15 MOSAIQ RADIATION ONCOLOGY 06/05/2025 11:0 1 AM EDT Physician Radiation Oncology RADIATION ONCOLO GY ORDERABLES Final Result Performing Organization Address City/[facility]/ZIP Co de Phone Number MOSAIQ RADIATION ONCOLOGY * Rad Onc Msq Treatment Summary (06/04/2025 10:59 AM EDT) Treatment Site Left lung MOSAI Q RADIATION ONCOLOGY Course Number 1 MOSAIQ RADIATION ONCOLOGY Prescribed Fractional Dose 400 cGray MOSAIQ RADIATION ONCOLOGY Prescribed Total Dose 6,000 cGray MOSAIQ RADIATION ONCOLOGY Actual Fractions Delivered 5 MOSAIQ RADIATION ONCOLOGY Actual Session Delivered Dose 400 cGray MOSAIQ RADIATION ONCOLOGY Actual Total Dose 2,000 cGray MOSAIQ RADIATION ONCOLOGY Prescribed Technique 2 arc VMAT MOSAIQ RADIATION ONCOLOGY Elapsed Days 7 MOSAIQ RADIATION ONCOLOGY Start Date 05/28/2025 MOSAIQ RADIATION ONCOLOGY Last Date 06/04/2025 MOSAIQ RADIATION ONCOLOGY Prescribed Number of Fractions 15 MOSAIQ RADIATION ONCOLOGY 06/04/2025 10:5 9 AM EDT Physician Radiation Oncology RADIATION ONCOLO GY ORDERABLES Final Result MOSAIQ RADIATION ONCOLOGY * Rad Onc Msq Treatment Summary (06/03/2025 11:04 AM EDT) Treatment Site Left lung MOSAI Q RADIATION ONCOLOGY Course Number 1 MOSAIQ RADIATION ONCOLOGY Prescribed Fractional Dose 400 cGray MOSAIQ RADIATION ONCOLOGY Prescribed Total Dose 6,000 cGray MOSAIQ RADIATION ONCOLOGY Actual Fractions Delivered 4 MOSAIQ RADIATION ONCOLOGY Actual Session Delivered Dose 400 cGray MOSAIQ RADIATION ONCOLOGY Actual Total Dose 1,600 cGray MOSAIQ RADIATION ONCOLOGY Prescribed Technique 2 arc VMAT MOSAIQ RADIATION ONCOLOGY Elapsed Days 6 MOSAIQ RADIATION ONCOLOGY Start Date 05/28/2025 MOSAIQ RADIATION ONCOLOGY Last Date 06/03/2025 MOSAIQ RADIATION ONCOLOGY Prescribed Number of Fractions 15 MOSAIQ RADIATION ONCOLOGY 06/03/2025 11:0 4 AM EDT Physician Radiation Oncology RADIATION ONCSARA GY ORDERABLES Final Result MOSAIQ RADIATION ONCOLOGY * Rad Onc Msq Treatment Summary (05/30/2025 10:51 AM EDT) Treatment Site Left lung MOSAI Q RADIATION ONCOLOGY Course Number 1 MOSAIQ RADIATION ONCOLOGY Prescribed Fractional Dose 400 cGray MOSAIQ RADIATION ONCOLOGY Prescribed Total Dose 6,000 cGray MOSAIQ RADIATION ONCOLOGY Actual Fractions Delivered 3 MOSAIQ RADIATION ONCOLOGY Actual Session Delivered Dose 400 cGray MOSAIQ RADIATION ONCOLOGY Actual Total Dose 1,200 cGray MOSAIQ RADIATION ONCOLOGY Prescribed Technique 2 arc VMAT MOSAIQ RADIATION ONCOLOGY Elapsed Days 2 MOSAIQ RADIATION ONCOLOGY Start Date 05/28/2025 MOSAIQ RADIATION ONCOLOGY Last Date 05/30/2025 MOSAIQ RADIATION ONCOLOGY Prescribed Number of Fractions 15 MOSAIQ RADIATION ONCOLOGY 05/30/2025 10:5 1 AM EDT Physician Radiation Oncology RADIATION ONCSARA GY ORDERABLES Final Result MOSAIQ RADIATION ONCOLOGY * Rad Onc Msq Treatment Summary (05/29/2025 11:46 AM EDT) Treatment Site Left lung MOSAI Q RADIATION ONCOLOGY Course Number 1 MOSAIQ RADIATION ONCOLOGY Prescribed Fractional Dose 400 cGray MOSAIQ RADIATION ONCOLOGY Prescribed Total Dose 6,000 cGray MOSAIQ RADIATION ONCOLOGY Actual Fractions Delivered 2 MOSAIQ RADIATION ONCOLOGY Actual Session Delivered Dose 400 cGray MOSAIQ RADIATION ONCOLOGY Actual Total Dose 800 cGray MOSAIQ RADIATION ONCOLOGY Prescribed Technique 2 arc VMAT MOSAIQ RADIATION ONCOLOGY Elapsed Days 1 MOSAIQ RADIATION ONCOLOGY Start Date 05/28/2025 MOSAIQ RADIATION ONCOLOGY Last Date 05/29/2025 MOSAIQ RADIATION ONCOLOGY Prescribed Number of Fractions 15 MOSAIQ RADIATION ONCOLOGY 05/29/2025 11:4 6 AM EDT Physician Radiation Oncology RADIATION ONCOLO GY ORDERABLES Final Result MOSAIQ RADIATION ONCOLOGY * Rad Onc Msq Treatment Summary (05/28/2025 11:49 AM EDT) Treatment Site Left lung MOSAI Q RADIATION ONCOLOGY Course Number 1 MOSAIQ RADIATION ONCOLOGY Prescribed Fractional Dose 400 cGray MOSAIQ RADIATION ONCOLOGY Prescribed Total Dose 6,000 cGray MOSAIQ RADIATION ONCOLOGY Actual Fractions Delivered 1 MOSAIQ RADIATION ONCOLOGY Actual Session Delivered Dose 400 cGray MOSAIQ RADIATION ONCOLOGY Actual Total Dose 400 cGray MOSAIQ RADIATION ONCOLOGY Prescribed Technique 2 arc VMAT MOSAIQ RADIATION ONCOLOGY Elapsed Days 0 MOSAIQ RADIATION ONCOLOGY Start Date 05/28/2025 MOSAIQ RADIATION ONCOLOGY Last Date 05/28/2025 MOSAIQ RADIATION ONCOLOGY Prescribed Number of Fractions 15 MOSAIQ RADIATION ONCOLOGY 05/28/2025 11:4 9 AM EDT Physician Radiation Oncology RADIATION ONCSARA GY ORDERABLES Final Result Performing Organization Address City/[facility] Co de Phone Number MOSAIQ RADIATION ONCOLOGY * Molecular intelligence tumor profiling (05/07/2025 8:58 AM EDT) Only the most recent of2 resultswithin the time period is included. Tissue Lashanda Mcgill DO LAB MOLECULAR DIAGNOS TICS ORDERABLES Final Result * MR Brain wo and w Contrast (04/25/2025 4:06 PM EDT) Anatomical Region Laterality Modality Head and Neck Magnetic Resonan ce 04/25/2025 5:37 PM EDT Impressions 04/25/2025 5:46 PM EDT No acute findings or metastatic disease. -------- FINAL REPORT -------- Dictated By: MORGAN MORAES Dictated Date: 04/25/2025 17:37 ET Assigned Physician: MORGAN MORAES Reviewed and Electronically Signed By: MORGAN MORAES Signed Date: 04/25/2025 17:46 ET Workstation ID: [id number] Transcribed By: Self Edit Transcribed Date: 04/25/2025 17:37 ET Narrative 04/25/2025 5:46 PM EDT PROCEDURE: Brain MRI INDICATION: Non-small cell lung cancer TECHNIQUE: Multiplanar, multisequence MRI of the brain without and with contrast. 20 mL Dotarem injected intravenously without complication COMPARISON: No priors available. FINDINGS: No acute infarct, mass effect, or intracranial hemorrhage. Sella and foramen magnum are within normal limits. No abnormal intracranial susceptibility artifact or abnormal intracranial enhancement. Minimal chronic small vessel ischemic changes are seen throughout the supratentorial white matter. Ventricles, sulci, and cisterns are normal in size and configuration. No hydrocephalus. Major intracranial arterial flow voids are normal. Major dural venous sinuses enhance normally with contrast. Sinuses and mastoid air cells are clear. No scalp hematoma or skull fracture. Bilateral lens implants. Orbits and extra cranial soft tissues are otherwise within normal limits. No marrow replacing lesions seen throughout the calvarium. Procedure Note Morgan Moraes MD - 04/25/2025 PROCEDURE: Brain MRI INDICATION: Non-small cell lung cancer TECHNIQUE: Multiplanar, multisequence MRI of the brain without and withcontrast. 20 mL Dotarem injected intravenously without complication COMPARISON: No priors available. FINDINGS: No acute infarct, mass effect, or intracranial hemorrhage. Sella and foramen magnum are within normal limits. No abnormal intracranial susceptibility artifact or abnormal intracranialenhancement. Minimal chronic small vessel ischemic changes are seen throughout thesupratentorial white matter. Ventricles, sulci, and cisterns are normal in size and configuration. Nohydrocephalus. Major intracranial arterial flow voids are normal. Major dural venoussinuses enhance normally with contrast. Sinuses and mastoid air cells are clear. No scalp hematoma or skull fracture. Bilateral lens implants. Orbits and extra cranial soft tissues areotherwise within normal limits. No marrow replacing lesions seen throughout the calvarium. IMPRESSION: No acute findings or metastatic disease. -------- FINAL REPORT -------- Dictated By: MORGAN MORAES Dictated Date: 04/25/2025 17:37 ET Assigned Physician: MORGAN MORAES Reviewed and Electronically Signed By: MORGAN MORAES Signed Date: 04/25/2025 17:46 ET Workstation ID: [id number] Transcribed By: Self Edit Transcribed Date: 04/25/2025 17:37 ET us Lashanda Mcgill DO IMG MRI PROCEDURES Fi nal Result * CT Chest w Contrast (04/24/2025 2:59 PM EDT) Anatomical Region Laterality Modality Body Computed Tomogra phy 04/24/2025 3:32 PM EDT Addenda Addendum by Blanca Pruett MD on 04/26/2025 12:28 PM EDT The consolidations the left upper lobe are difficult to measure due to morphology however a small nodular consolidation at the most cranial aspect measures 1.2 x 0.8 cm, the largest consolidation just inferior to this measures 2.3 x 3.2 cm and more inferior and just caudal to the marker there is a consolidation measuring 1.2 x 2.5 cm. -------- ADDENDUM -------- Dictated By: Blanca Pruett Dictated Date: 04/26/2025 12:24 ET Assigned Physician: Blanca Pruett Reviewed and Electronically Signed By: Blanca Pruett Signed Date: 04/26/2025 12:28 ET Workstation ID: [id number] Transcribed By: Self Edit Transcribed Date: 04/26/2025 12:24 ET Impressions 04/24/2025 3:38 PM EDT Increased nodular consolidations in the left upper lobe. -------- FINAL REPORT -------- Dictated By: Blanca Pruett Dictated Date: 04/24/2025 15:32 ET Assigned Physician: Blanca Pruett Reviewed and Electronically Signed By: Blanca Pruett Signed Date: 04/24/2025 15:38 ET Workstation ID: [id number] Transcribed By: Self Edit Transcribed Date: 04/24/2025 15:32 ET Narrative 04/24/2025 3:[address] CHEST WITH CONTRAST INDICATION: lung cancer, need to start urgent chemo and radiation. TECHNIQUE: Chest CT with intravenous administration of 90cc ISOVUE 370. Multi planar reformats were created and interpreted. The examination was performed utilizing dose reduction techniques. DLP: 763 mGy/cm COMPARISON: 01/08/2025 FINDINGS: LUNGS/PLEURA: Compared to prior examination of 09/21 there is significantly increased nodular consolidation in the anterior left upper lobe. A radiopaque marker is noted. Extensive emphysematous changes. MEDIASTINUM: Cardiomegaly with coronary artery calcifications. Stable mediastinal nodes. CHEST WALL: No axillary lymphadenopathy or superficial hematoma. UPPER ABDOMEN:The visualized portions of the upper abdomen are unremarkable. BONES: Degenerative changes of the bones. Remote endplate remote superior endplate deformity of T11. Procedure Note Blanca Pruett MD - 04/24/2025 CT CHEST WITH CONTRAST INDICATION: lung cancer, need to start urgent chemo and radiation. TECHNIQUE: Chest CT with intravenous administration of 90cc ISOVUE 370.Multi planar reformats were created and interpreted. The examination wasperformed utilizing dose reduction techniques. DLP: 763 mGy/cm COMPARISON: 01/08/2025 FINDINGS: LUNGS/PLEURA: Compared to prior examination of 09/21 there issignificantly increased nodular consolidation in the anterior left upperlobe. A radiopaque marker is noted. Extensive emphysematous changes. MEDIASTINUM: Cardiomegaly with coronary artery calcifications. Stablemediastinal nodes. CHEST WALL: No axillary lymphadenopathy or superficial hematoma. UPPER ABDOMEN:The visualized portions of the upper abdomen areunremarkable. BONES: Degenerative changes of the bones. Remote endplate remote superiorendplate deformity of T11. IMPRESSION: Increased nodular consolidations in the left upper lobe. -------- FINAL REPORT -------- Dictated By: Blanca Pruett Dictated Date: 04/24/2025 15:32 ET Assigned Physician: Blanca Pruett Reviewed and Electronically Signed By: Blanca Pruett Signed Date: 04/24/2025 15:38 ET Workstation ID: [id number] Transcribed By: Self Edit Transcribed Date: 04/24/2025 15:32 ET Lashanda Jaffeuliffe DO IMG CT PROCEDURES Sancho lorenza Result - Final * Colonoscopy (04/27/2024) Colonoscopy No Interpretation , Abstracted Anatomical Region Laterality Modality Other Historical Provider HEALTH MAINTENANCE Final Result * Depression Screening (04/16/2024) Depression Screening Abstracted Historical Provider MD HEALTH MAINTENANCE Final Result * [facility] SCREENING DIGITAL (03/22/2024 8:50 AM EDT) Anatomical Region Laterality Modality Mammography 03/21/2024 3:07 PM EDT Narrative 03/22/2024 8:50 AM EDT [facility] Diagnostic Imaging Department [address] [place] [address] Patient: DENISA VERDUZCO./Age/Sex: 1955 - 68 - F Unit#: [id number] [facility]/Ordering Site: [facility] Ordering Physician: YANN MANZANARES Luis Armando Screening Digital - 03/21/24 - Report Status:Signed EXAM: Luis Armando Screening Digital EXAM DATE AND TIME: 03/21/2024 3:49 PM HISTORY: Screening. Left breast biopsy in 2015, pathology benign. COMPARISON: 02/16/23, 09/21/19, 09/18/18, 09/15/17 TECHNIQUE: Bilateral digital breast tomosynthesis was performed in the CC and MLO projections. Computer aided detection with Spondo 3D 3.1 was employed. TISSUE DENSITY: b. [...] appearance of the breasts. No evidence of malignancy is seen. A negative mammogram in the presence of a clinically suspicious palpable abnormality does not preclude the possibility of malignancy or alter the indications for biopsy. BI-RADS: Category 2: Benign RECOMMENDATION(S): 1: Routine screening mammogram BILATERAL in 1 year. Dictating Physician: ERICA TREADWELL MD Electronically Signed by: ERICA TREADWELL MD Dic Date/Time: 03/22/24 0849 Sign date/Time: 03/22/24 0850 Procedure Note Erica Treadwell MD - 07/16/2024 [facility] Diagnostic Imaging Department [address] [place] [address] Patient: DAXDENISA /Age/Sex: 1955 - 68 - F Unit#: [id number] Location/Status: [facility] CLI Mnemonic/Ordering Site: [facility] Ordering Physician: YANN MANZANARES [facility] Screening Digital - 03/21/24 - Report Status:Signed EXAM: [facility] Screening Digital EXAM DATE AND TIME: 03/21/2024 3:49 PM HISTORY: Screening. Left breast biopsy in 2016, pathology benign. COMPARISON: 02/16/23, 09/21/19, 09/18/18, 09/15/17 TECHNIQUE: Bilateral digital breast tomosynthesis was performed in the CCand MLO projections. Computer aided detection with Spondo 3D 3.1was employed. TISSUE DENSITY: b. There [...] MD IMG BI PROCEDURES Final Result * [facility] DEXA AXIAL SKELETON (03/22/2024 8:14 AM EDT) Anatomical Region Laterality Modality Mammography 03/21/2024 3:07 PM EDT Narrative 03/22/2024 8:14 AM EDT [facility] Diagnostic Imaging Department [address] [place] [id number] Patient: DENISA VERDUZCO /Age/Sex: 1955 68 - F Unit#: [id number] Location/Status: [facility]REG CLI Mnemonic/Ordering Site: [facility] Ordering Physician: YANN MANZANARES Luis Armando Dexa Axial Skeleton - 03/21/24 - 1602 Report Status:Signed HISTORY: The patient is a 68-year-old postmenopausal female with clinical concern for metabolic bone disease. FINDINGS: Dual [...] matched controls. This yields a T-score of -0.8 and a [...] the prior examination of 08/16/2017. There has been an increase of 19.3% in bone mineral density in the right femur and an increase of 22.1% in bone mineral density in the left femur. 2. FRAX analysis yields a 10-year probability of major osteoporotic fracture of 34.2% and a 10-year probability of hip fracture of 7.1%. Code 84926 Dictating Physician: MILTON ORTEGA MD Electronically Signed by: MILTON ORTEGA MD Dic Date/Time: 03/22/24812 Sign date/Time: 03/22/24813 Procedure Note Milton Ortega MD - 07/16/2024 [facility] Diagnostic Imaging Department [address] [place] [address] Patient: DENISA VERDUZCO./Age/Sex: 1955 68 - F Unit#: [id number] [facility] Ordering Physician: YANN MANZANARES [facility] Dexa Axial Skeleton - 03/21/24 - 1602 [...] density of the femurs bilaterally is 0.912 gm/kg8nlohr is 90% of that of young normals [...] probability of hip fracture of 7.1%. Code 09853 Dictating Physician: MILTON ORTEGA MD Electronically Signed by: MILTON ORTEGA MD Dic Date/Time: 03/22/24812 Sign date/Time: 03/22/2414 Result [facility] Yann Manzanares MD IMG BI PROCEDURES Final Result * Falls Risk Assessment (02/09/2024) [facility] Falls Risk Assessment Abstracted Result [facility] HEALTH MAINTENANCE Final Result * Hepatitis C Screening (02/09/2024) [facility] Hepatitis C Screening Abstracted Result [facility] MAINTENANCE Final Result * (ABNORMAL) Lipid panel (02/09/2024) [facility] LDL/HDL Ratio 2 0 - 4 Triglycerides 80 0 - 150 mg/dL Cholesterol 237(A) 0 - 200 mg/dL HDL 103 >=40 mg/dL LDL Cholesterol 118(A) 0 - 100 mg/dL Blood Venous blood specimen / Unknown Result [facility] LAB BLOOD ORDERABLES Iris l Result from Last 3 Months or Most Recently Relevant to Health Maintenance Insurance MEDICARE [facility] [employer] Advance Directives Documents on File Type Date 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 Do not modify or discontinue any currently active code status orders. * Full Code - Default Date Activated Date Inactivated Comments 04/03/2025 7:54 AM 04/04/2025 7:47 PM This is order is used when code status has not been discussed with the patient, or code status is otherwise unknown/unconfirmed To update the patient's code status, place a code status order. Do not modify or discontinue any currently active code status orders. Care Teams Associate Automation Engineer Relationship Specialty Start Date End Date Kinjal Barron FNP [address] [place] [address] PCP - General Family Medicine 03/06/25
--- OUTSIDE RECORDS SUMMARY | 2025-07-25 08:49 | XMS_ITS | Clinical Summary ---
Author Organization [facility] Address [address] [place] [address] Care Team Providers Care Older Adult Social Work Specialist Name Role Phone Debra Ji MD Primary Care Provider [phone] Allergies Active Allergy Reactions Criticality Noted Date [...] 0 Active zoster vaccine live, PF, (ZOSTAVAX) 44998 UNT/0.65ML injection Inject 0.65 mL under the [...] age to complete this topic Care Teams Older Adult Social Work Specialist Relationship Specialty Start Date End Date Debra Ji MD PCP - General Internal Medicine 06/27/17
--- OUTSIDE RECORDS SUMMARY | 2025-07-25 08:49 | XMS_ITS ---
Author Organization [facility] Address [address] [place] [address] Phone Care Team Providers Care Fitter Tacker Name Role Phone Kinjal Barronca SSIS ETL DEVELOPER Primary Care Provid er Active Problems Problem Noted Date Diagnosed Date Acute on chronic respiratory failure with hypoxia and hypercapnia ([facility] V24, 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 V24, [facility] V28) 04/30/2025 Age-related osteoporosis wit h current pathological fracture of right femur with delayed healing 04/24/2025 Tachycardia 04/24/2025 Lung nodule 04/03/2025 Decreased hearing 01/09/2025 Urinary incontinence 01/09/2025 Seizure ([facility] V24, [facility] V28) 12/23/2024 Anemia 12/14/2024 Atopic dermatitis 10/06/2024 Cor pulmonale, acute ([facility] V24, 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 V24, [facility] V28) 09/21/2024 Unspecified age-related cataract 09/21/2024 Unspecified atrial flutter ([facility] V24, [facility] V28) 09/21/2024 Congestive heart failure ([facility] V24, 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 V28) 03/28/2023 Senile cataract 03/28/2023 Constipation 04/17/2022 Abnormal posture 04/16/2022 Difficulty walking 11/26/2021 Syncope and collapse 11/26/2021 Unsteadiness on feet 11/26/2021 Obese 07/26/2019 Essential (primary) hypertension 07/09/2019 Seasonal allergies 03/20/2019 RITA on CPAP 11/08/2017 Overview (09/12/2024): Life supply/cpap [facility] Polysomnogram Trilogy treatment study. Date [...] isode depressed, mild or moderate severity, unspecified ([facility] V24, [facility] V28) 10/09/2017 Acute on chronic respiratory failure with hypoxemia ([facility] V24, [facility] V28) 08/02/2017 Overview (09/12/2024): Historical tracheostomy Other secondary pulmonary hy pertension ([facility] V24, [facility] V28) 08/02/2017 Pulmonary emphysema ([facility] V24, [facility] V28) 0 07/29/2017 Thrombocytosis 06/27/2017 Dependence on supplemental oxygen 06/15/2017 Bipolar disorder ([facility] V24, 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 V24, [facility] V28) Treatment Medications Current Day (Day 1 , Cycle 2 - Planned for 08/09/2025) Next Day (Day 1, Cycle 3 - Planned for 08/30/2025) CARBOplatin (PARAPLATIN)CARBOplatin (PARAPLATIN) chemo 250 mL IVPB (by AUC)PACLitaxel (TAXOL)PACLitaxel (TAXOL) chemo IVPB NS 250 mL (3 hours) CARBOplatin (PARAPLATIN) 390 mg in sodium chloride 289 mL chemo IVPBPACLitaxel (TAXOL) 252 mg in sodium chloride (non-PVC) 292 mL chemo IVPB CARBOplatin (PARAPLATIN) 395 mg in sodium chloride 289.5 mL chemo IVPBPACLitaxel (TAXOL) chemo IVPB Past Plans No past plan information found. Radiation Treatments * Treatment Site Started On Last Treated On Elapsed Days Fractions Complete Last Fraction Dose Given/Prescribed Total Dose Given/Prescribed Technique Left lung 05/28/2025 5 21 15 of 15 400 cGy / 400 cGy 6,000 cGy / 6, 000 cGy 2 arc VMAT Lifetime Dose Tracking * Chemical Lifetime Dose Automatic Entry Manual Entr y Fluoro Time 4.12 minutes 4.12 minutes 0 minutes Air Kerma 242.5 mGy 242.5 mGy 0 mGy
--- OUTSIDE RECORDS SUMMARY | 2025-07-25 08:49 | XMS_ITS | Encounter Summary ---
Author Organization [facility] Address [address] [place] [address] Care Team Providers Care Mold Release Worker Name Role Phone Kinjal Barron TRUCK CLEANER Primary Care Provid er Encounter Details Date Type Department Care Team (Late Contact Info) Description 11/09/[address] [facility] - Main Lab [address] [facility] [place] [address] Janice Núñez MD [address] [facility] [address] [place] [address] Chronic obstructive pulmonary disease, unspecified (CMS/HCC V24, [...] Info) Description 08/01/2025 10:30 AM EDT Appointment [facility] Radiation Oncology [address] [place] [phone] Debra Loya, DEVORA 08/08/2025 10:30 AM EDT Office Visit [facility] Hematology Oncology [address] [place] [phone] Lashanda Mcgill, [address] [place] [address] 08/12/2025 10:00 AM EDT Appointment [facility] [address] [phone] documented as of this encounter Procedures Procedure Name Priority Date/Time Associated Diagnosis Comments COMPLETE BLOOD COUNT Routine 11/12/2024 8:41 AM EST Chronic obstructive pulmonary disease, unspecified ([facility]) BASIC METABOLIC PANEL Routine 11/12/2024 8:41 AM EST Chronic obstructive pulmonary disease, unspecified ([facility]/HCC) documented in this encounter Results * (ABNORMAL) Basic metabolic panel (11/12/2024 8:41 AM EST) Sodium 141 133 - 145 mmol/L LAB CHEMISTRY METHOD 11/12/2024 4:30 PM [facility] Potassium 4.1 3.5 - 5.5 mmol/L LAB CHEMISTRY METHOD 11/12/2024 4:30 PM [facility] Chloride 92(L) 96 - 110 mmol/L LAB CHEMISTRY METHOD 11/12/2024 4:30 PM [facility] CO2 43(HH) 21 - 32 mmol/L LAB CHEMISTRY METHOD 11/12/2024 4:30 PM EST [facility] Anion Gap 6 3 - 11 LAB CHEMISTRY METHOD 11/12/2024 4:30 PM [facility] Glucose 90 70 - 100 mg/dL LAB CHEMISTRY METHOD 11/12/2024 4:30 PM EST [facility] BUN 11 5 - 25 mg/dL LAB CHEMISTRY METHOD 11/12/2024 4:30 PM EST [facility] Creatinine 0.98 0.50 - 1.10 mg/dL LAB CHEMISTRY METHOD 11/12/2024 4:30 PM EST [facility] eGFR 62 >=60 mL/min/1. 73m2 LAB CHEMISTRY METHOD 11/12/2024 4:30 PM EST [facility] Comment:Calculation based on the Chronic Kidney Disease Epidemiology Collaboration (CKD-EPI) equation refit without adjustment for race. BUN/Creatinine Ratio 11.2 LAB CHEMISTRY METHOD 11/12/2024 4:30 PM [facility] Calcium 9.3 8.5 - 10.5 mg/dL LAB CHEMISTRY METHOD 11/12/2024 4:30 PM [facility] Blood Venous blood specimen / Unknown Venipuncture / Unknown 11/12/2024 8:41 AM EST 11/12/2024 11:35 AM EST us Janice Núñez MD LAB BLOOD ORDERABLES Final Resul t [facility] [address] [place] [address], * (ABNORMAL) Complete blood count (11/12/2024 8:41 AM EST) WBC 6.1 4.8 - 10.8 K/mcL LAB HEMETOLOGY METHOD 11/12/2024 11:55 AM EST [facility] RBC 3.50(L) 3.80 - 4.80 M/mcL LAB HEMETOLOGY METHOD 11/12/2024 11:55 AM EST [facility] Hemoglobin 9.2(L) 11.5 - 16.0 g/dL LAB HEMETOLOGY METHOD 11/12/2024 11:55 AM EST [facility] Hematocrit 32.4(L) 35.0 - 47.0 % LAB HEMETOLOGY METHOD 11/12/2024 11:55 AM EST [facility] MCV 93.9 79.0 - 98.0 FL LAB HEMETOLOGY METHOD 11/12/2024 11:55 AM EST [facility] MCH 26.7(L) 27.0 - 32.0 pcg LAB HEMETOLOGY METHOD 11/12/2024 11:55 AM EST [facility] MCHC 28.4(L) 32.0 - 37.0 g/dL LAB HEMETOLOGY METHOD 11/12/2024 11:55 AM EST [facility] RDW 14.4 11.0 - 15.0 % LAB HEMETOLOGY METHOD 11/12/2024 11:55 AM [facility] Platelets 435(H) 130 - 400 K/mcL LAB HEMETOLOGY METHOD 11/12/2024 11:55 AM EST [facility] MPV 9.7 7.0 - 11.0 FL LAB HEMETOLOGY METHOD 11/12/2024 11:55 AM EST [facility] NRBC 0.0 <1.0 % LAB HEMETOLOGY METHOD 11/12/2024 11:55 AM [facility] NRBC Absolute 0.00 <0.10 K/mcL LAB HEMETOLOGY METHOD 11/12/2024 11:55 AM [facility] Blood Venous blood specimen / Unknown Venipuncture / Unknown 11/12/2024 8:41 AM EST 11/12/2024 11:35 AM EST us Janice Núñez MD LAB BLOOD ORDERABLES Final Resul t [facility] [address] [place] [address], documented in this encounter Visit Diagnoses Diagnosis Chronic obstructive pulmonary disease, unspecified (CMS/HCC V24, CMS/HCC V28) documented in this encounter Additional Health Concerns Infection Onset Date Last Indicated Resolved Time Tuberculosis Rule-Out 04/03/2025 04/03/20252024 3:00 PM EDT Respiratory Rule-Out 07/06/2025 07/06/2025 025 4:37 AM EDT COVID-19 Rule-Out 07/06/2025 07/06/2025 07/06/2025 4:37 AM EDT documented as of this encounter Care Teams Mold Release Worker Relationship Specialty Start Date End Date Kinjal Barron FNP [address] [place] [phone] PCP - General Family Medicine 03/06/25 documented as of this encounter
--- OUTSIDE RECORDS SUMMARY | 2025-07-25 08:49 | XMS_ITS | Encounter Summary ---
Author Organization [facility] Address [address] [place] [address] Care Team Providers Care Dictaphone Technician Name Role Phone Kinjal Barron ROD AND TUBE STRAIGHTENER Primary Care Provid er Reason for Visit * Reason Onset Date Comments Referred to dietitian 07/22/2025 Encounter Details Date Type Department Care Team (Late st Contact Info) Description 07/22/2025 Telephone [facility] Radiation Oncology [address] [place] [phone] Debra Loya, DEVORA Social History Tobacco Use Types Packs/Day Years Used Date Smoking Tobacco: Former Cigarettes 2 40 0 12/30/1972 - 12/30/2006 Smokeless Tobacco: Never Comments:Quit 2018 Alcohol Use Standard Drinks/Week Comments [...] on file documented as of this encounter Functional Status * Are you [...] Cheryle Velazquez RN documented in this encounter Progress Notes * Debra Loya RD - 07/23/2025 10:59 AM EDT Booked appt for 08/01/25 at 10:30am. Confirmed w/ Lluvia (pt) and family member Robert. Reviewed directions to the radiation oncology department on the first floor of the [facility] ([facility]). Contact information for outpatient oncology dietitian provided [phone]. * Debra Loya RD - 07/22/2025 5:17 PM EDT Received nutrition consult from Dr. Mcgill for nutrition advice during chemotherapy. Spoke with patient who expressed understanding and agreement with the referral. Asked that I contact her daughter Heather to schedule, if possible. Called and left detailed voice mail message requesting a call back to schedule initial nutrition consultation appointment at her earliest convenience. Contact information for outpatient oncology dietitian provided [phone]. documented in this encounter Plan of Treatment Upcoming Encounters Date Type Department Care Team (Late st Contact Info) Description 08/01/2025 10:30 AM EDT Appointment [facility] Radiation Oncology [address] [place] [phone] 08/08/2025 10:30 AM EDT Office Visit [facility] Hematology Oncology [address] [place] [phone] Lashanda Mcgill DO [address] [place] [phone] 08/12/2025 10:00 AM EDT Appointment [facility] [address] [place] [phone] documented as of this encounter Visit Diagnoses Not on filedocumented in this encounter Additional Health Concerns Assessment Noted Time PHQ-9 Depression Total Score: 1 07/19/20 5:04 PM EDT documented as of this encounter Care Teams Dictaphone Technician Relationship Specialty Start Date End Date Kinjal Barron FNP [address] [place] [phone] PCP - General Family Medicine 03/06/25 documented as of this encounter
== END 2025-07-25 08:57 | disposition home or self-care (01) ==
LOC: HO.HPS 08:17
PROVIDERS: PCP Nurse Practitioner Family; Visit Provider Hospitalist
DX: J43.2 Centrilobular emphysema (principal); R91.1 Solitary pulmonary nodule; J96.11 Chronic respiratory failure with hypoxia; J96.12 Chronic respiratory failure with hypercapnia; F51.01 Primary insomnia; G47.33 Obstructive sleep apnea (adult) (pediatric); C34.92 Malignant neoplasm of unspecified part of left bronchus or lung; L03.313 Cellulitis of chest wall
CPT/HCPCS: 99215; G2211

== ENCOUNTER 2025-07-25 08:16 | Outpatient (REF) | payer OTHER, SELFPAY ==
[2025-07-25 09:35] LABS: Venous Blood Gas Refer to POC result
[2025-07-25 09:38] LABS: VBG HCO3 52 mmol/L (22-26); VBG O2 % Saturation 57.0 %
[2025-07-25 09:50] LABS: Hematocrit 37.2 % (37.0-47.0); Hemoglobin 11.2 g/dl (12.0-16.0); Imm Gran Abs Auto 0.05 X10*3/uL (0.00-0.03); Imm Gran Pct Auto 0.7 % (0.0-0.4); Lymphocytes Absolute Auto 0.2 X10*3/uL (1.2-4.9); MANUAL DIFF FLAG SCAN; Mean Corpuscular HGB Conc 30.1 g/dl (31.0-35.0); Mean Corpuscular Hemoglobin 27.8 pg (27.0-33.0); Mean Corpuscular Volume 92.3 fL (80.0-98.0); NRBC Abs Auto 0.000 X10*3/uL (0.0-0.012); NRBC Pct Auto 0.0 /100WBC (0.0-0.2); Platelet Count 314 X10*3/uL (160-400); Red Blood Count 4.03 X10*6/uL (4.20-5.50); SCAN SMEAR FLAG 1; White Blood Count 7.1 X10*3/uL (4.8-10.8)
[2025-07-25 10:41] LABS: Anion Gap 11 (12-20); Blood Urea Nitrogen 28 mg/dL (9-16); Calcium 9.5 mg/dL (8.4-10.2); Carbon Dioxide 45 mmol/L (22-29); Chloride 87 mmol/L (96-108); Estimated Glomerular Filt Rate 59; Potassium 3.2 mmol/L (3.3-5.1); Sodium 140 mmol/L (135-145)
== END 2025-07-25 08:17 | disposition home or self-care (01) ==
LOC: HO.LAB 08:16
PROVIDERS: PCP Nurse Practitioner Family; Visit Provider Hospitalist
DX: J43.2 Centrilobular emphysema (principal); R91.1 Solitary pulmonary nodule; J96.11 Chronic respiratory failure with hypoxia; J96.12 Chronic respiratory failure with hypercapnia; F51.01 Primary insomnia; G47.33 Obstructive sleep apnea (adult) (pediatric); C34.92 Malignant neoplasm of unspecified part of left bronchus or lung; L03.313 Cellulitis of chest wall; Z99.81 Dependence on supplemental oxygen; Z87.891 Personal history of nicotine dependence; Z79.899 Other long term (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 therapy; Z79.630 Long term (current) use of alkylating agent
CPT/HCPCS: 36415; 80048; 82803; 85025; 85652; 87040; 99212

== ENCOUNTER 2025-08-06 13:28 | Inpatient (IN) | payer OTHER, SELFPAY ==
--- OUTSIDE RECORDS SUMMARY | 2025-08-01 10:25 | XMS_ITS | Encounter Summary ---
Author Organization [facility] Address [address] [place] [address] Care Team Providers Care Locomotive Operator Name Role Phone Kinjal Barronecca WOMEN'S GARMENT FITTER Primary Care Provid er Reason for Referral * Consultation (Routine) - Closed Specialty Diagnoses / Procedures Referred By Contac t Referred To Contact Nutrition Diagnoses Squamous cell carcinoma of left lung (CMS/HCC V24, CMS/HCC V28) Lashanda Mcgill DO [address] [place] [phone] Phone: tel: fax: Referral ID Status Reason Start Date Expiration Date V isits Requested Visits Authorized [id number] Closed Specialty Services Required 07/19/2025 07/19/2026 1 1 Reason for Visit * Reason Comments Consult * Consultation (Routine) - Closed Specialty Diagnoses / Procedures Referred By Contac t Referred To Contact Nutrition Diagnoses Squamous cell carcinoma of left lung (CMS/HCC V24, CMS/HCC V28) Lashanda Mcgill DO [address] [place] [address] Phone: tel: fax: Referral ID Status Reason Start Date Expiration Date V isits Requested Visits Authorized [id number] Closed Specialty Services Required 07/19/2025 07/19/2026 1 1 Encounter Details Date Type Department Care Team (Latest Contact Info) Description 08/01/2025 10:25 AM EDT - 08/01/2025 11:59 PM EDT Hospital Encounter [facility] Radiation Oncology [address] [place] [address] Debra Loya, RD Squamous cell carcinoma of left lung ([facility] V24, [facility] V28) Discharge Disposition: Home or Self Care Social [...] Sign Reading Time Taken Comments Blood Pressure - - Pulse - - Temperature - - Respiratory Rate - - Oxygen Saturation - - Inhaled Oxygen Concentration - - Weight 87.1 kg (192 lb) 08/01/2025 10:00 AM EDT Height - - Body Mass Index 36.28 07/16/2025 2:03 PM EDT documented in this [...] by mouth 2 (two) times a day. 07/11/2025 ARIPiprazole (ABILIFY) 10 mg tablet Take 1 tablet (10 mg total) by mouth 1 (one) time each day. 03/13/2024 calcium carbonate-vitamin D (Calcium 500 + D) 500 mg-5 mcg (200 unit) per tablet Take 1 tablet by mouth 2 (two) times a day. 08/08/2024 cholecalciferol (VITAMIN D-3) 50 mcg (2,000 unit) capsule Take 1 capsule (2,000 Units total) by mouth 1 (one) time each day in the morning. 08/16/2024 dexAMETHasone (DECADRON) 4 mg tabletIndications :Squamous cell carcinoma of left lung (CMS/HCC V24, CMS/HCC V28) Take 8 mg (two tablets) once daily, starting the day after treatment, for three days (days 2-4). Take in the morning with food. 30 tablet 1 06/26/2025 docusate sodium (COLACE) 100 mg capsule Take 1 capsule (100 mg total) by mouth 2 (two) times a day. fluocinolone acetonide oiL 0.01 % drops Administer 4 drops into affected ear(s) every other day if needed (other). 07/23/2024 fluticasone furoate-vilantero L (Breo Ellipta) 200-25 mcg/dose inhaler INHALE 1 PUFF DIRECTED ONCE A DAY 03/19/2024 fluticasone propionate (FLONASE) 50 mcg/actuation nasal spray Administer 1 spray into each nostril 2 (two) times a day. Shake gently. Before first use, prime pump. After use, clean tip and replace cap. 16 g 3 10/03/2024 gabapentin (NEURONTIN) 100 mg capsule Take 1 capsule (100 mg total) by mouth 3 (three) times a day. 08/16/2024 hydrocortisone 2.5 % cream Apply topically 2 (two) times a day. 30 g 07/30/2025 6 incontinence pad, liner, disp pad Incontinence Supply Disposable (Disposable Liners) Misc Use 3 times a day as needed for incontinence.= 03/08/2024 ipratropium-albut Whitney (DUONEB) 0.5-2.5 mg/3 mL nebulizer solutionIndicatio ns:Chronic obstructive pulmonary disease, unspecified COPD type (CMS/HCC V24, CMS/HCC V28),Chronic respiratory failure with hypercapnia (CMS/HCC V24, CMS/HCC V28) Take 3 mL by nebulization 2 (two) times a day if needed for wheezing. 360 mL 2 04/09/2025 6 lactulose (Enulose) solution Take 15 mL (10 g total) by mouth 1 (one) time each day if needed (constipation). 450 mL 07/16/2025 5 lamoTRIgine (LaMICtal) 200 mg tablet Take 1 tablet (200 mg total) by mouth 1 (one) time each day in the morning. 07/19/2024 lidocaine-priloca ine (EMLA) 2.5-2.5 % cream Apply to port site 1 hour prior to each time port is accessed 30 g 1 06/26/2025 loratadine (CLARITIN) 10 mg tablet Take 1 tablet (10 mg total) by mouth 1 (one) time each day. metoprolol succinate (TOPROL-XL) 100 mg 24 hr tablet Take 1 tablet (100 mg total) by mouth 1 (one) time each day. Do not crush or chew. 30 each 11 10/03/2024 mirtazapine (REMERON) 15 mg tablet Take 1 tablet (15 mg total) by mouth at bedtime. 08/16/2024 montelukast (SINGULAIR) 10 mg tablet Take 1 tablet (10 mg total) by mouth 1 (one) time each day. 08/16/2024 pantoprazole (PROTONIX) 40 mg EC tablet Take 1 tablet (40 mg total) by mouth 1 (one) time each day. 30 minutes before breakfast daily 04/18/2024 prochlorperazine (COMPAZINE) 10 mg tablet Take 1 tablet (10 mg total) by mouth every 6 (six) hours if needed for nausea. 60 tablet 3 07/18/2025 5 propylene glycol/peg 400/PF (SYSTANE, PF, OPHT) Administer into affected eye(s). salicylic acid (T/LYNN) 3 % shampoo Apply one drop every 24-48 hours as needed. 03/08/2024 senna (SENOKOT) 8.6 mg tablet Take 1 [...] in this encounter Progress Notes * Debra Loya, DEVORA - 08/01/2025 10:30 AM EDT Ambulatory Oncology Nutrition Assessment Patient: Lluvia Cartagena, , 1955 Type of assessment: Initial 08/01/25 Lluvia Cartagena is a 70 y.o. female with history of lung cancer s/p RT in May and continuing on chemotherapy per Dr. Mcgill. Last office note reviewed for course details. Pt was hospitalized in Junfor CHF. Follows closely with her warble saw operator in [place]. Oncology Diagnosis/Treatment: Oncology History Squamous cell carcinoma of left lung ([facility] V24, [facility] V28) 04/30/2025 Initial Diagnosis NSCLC of left lung ([facility] V24, [facility] V28) 04/30/2025 - Radiation Therapy The patient saw No care body team member to display for radiation treatment. This is the current list ofradiation treatment: Radiation Therapy: Lung Treatment Period Technique Fraction Dose Fractions Total Dose Course 1 05/28/2025-06/18/2025 (days elapsed: 21) Left lung 05/28/2025-06/18/2025 2 arc VMAT 400 / 400 cGy 6000 / 6,000 cGy 07/19/2025 - Chemotherapy PACLitaxel (TAXOL) 252 mg in sodium chloride (non-PVC) 292 mL chemo IVPB, 135 mg/m2 = 252 mg (67.5 % of original dose 200 mg/m2), intravenous, Once, 1 of 6 cycles Dose modification: 135 mg/m2 (original dose 200 mg/m2, Cycle 1, Reason: Dose Not Tolerated) Administration: 252 mg (07/19/2025) fosaprepitant (EMEND) 150 mg in sodium chloride 0.9 % 100 mL IVPB, 150 mg, intravenous, Once, 1 of 6 cycles Administration: 150 mg (07/19/2025) palonosetron (ALOXI) injection 250 mcg, 250 mcg, intravenous, Once, 1 of 6 cycles Administration: 250 mcg (07/19/2025) CARBOplatin (PARAPLATIN) 310 mg in sodium chloride 281 mL chemo IVPB, 390 mg, intravenous, Once, 1 of 6 cycles Administration: 310 mg (07/19/2025) Active Ambulatory Problems Diagnosis Date Noted Bipolar disorder ([facility] V24, [facility] V28) 06/10/2017 Pulmonary emphysema ([facility] V24, [facility] V28) 07/29/2017 Dependence on supplemental oxygen 06/15/2017 Acute on chronic respiratory failure with hypoxemia ([facility] V24, [facility] V28) 08/02/2017 Bipolar disorder, current episode depressed, mild or moderate severity, unspecified [place] [place] [facility] [place]) 10/09/2017 Gastroesophageal reflux disease without esophagitis 06/08/2017 Essential (primary) hypertension 07/09/2019 Insomnia 06/08/2017 Obese 07/26/2019 RITA on CPAP 11/08/2017 Retinal hemorrhage 06/08/2017 Seasonal allergies 03/20/2019 Other secondary pulmonary hypertension ([facility] [place] [facility] [place]) 08/02/2017 Lung nodule 04/03/2025 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 Lewy body dementia ([facility] [place], [facility] [place]) 03/28/2023 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 09/21/2024 Difficulty walking 11/26/2021 Decreased hearing 01/09/2025 Constipation 04/17/2022 Congestive heart failure ([facility] [place], [facility] [place]) 08/23/2024 Post-traumatic stress disorder, unspecified 08/23/2024 Atopic dermatitis 10/06/2024 Cor pulmonale, acute ([facility] [place], [facility] [place]) 10/06/2024 Anemia 12/14/2024 Age-related osteoporosis with current pathological fracture of right femur with delayed healing 04/24/2025 Acute on chronic diastolic (congestive) heart failure ([facility] [place], [facility] [place]) 09/21/2024 Acidosis 10/06/2024 Abnormal posture 04/16/2022 Somatic syndrome finding 08/23/2024 Pleuritic pain 11/23/2023 Pneumonia 10/06/2024 Primary localized osteoarthrosis of ankle and foot 09/08/2023 Seizure ([facility] [place], [facility]) 12/23/2024 Syncope and collapse 11/26/2021 Tachycardia 04/24/2025 Thrombocytosis 06/27/2017 Senile cataract 03/28/2023 Unspecified age-related cataract 09/21/2024 Unspecified atrial flutter ([facility], [facility] V28) 09/21/2024 Unsteadiness on feet 11/26/2021 Urinary incontinence 01/09/2025 Squamous cell carcinoma of left lung ([facility], [facility] V28) 04/30/2025 Acute on chronic respiratory failure with hypoxia and hypercapnia ([facility], [facility]) 07/06/2025 Resolved Ambulatory Problems Diagnosis Date Noted No Resolved Ambulatory Problems Past Medical History: Diagnosis Date Arrhythmia Asthma 1111 Bipolar I disorder ([facility], [facility]) 06/10/2017 Chronic obstructive pulmonary disease ([facility], [facility] [place]) 07/29/2017 Chronic respiratory failure with hypercapnia ([facility], [facility] [place]) 08/02/2017 Depression 10/09/2017 Emphysema of lung ([facility], [facility]) Full dentures Gastroesophageal reflux disease 06/08/2017 HL (hearing loss) Hypertension Lung cancer ([facility], [facility]) 03/2025 Psychiatric illness Pulmonary hypertension, secondary 08/02/2017 Tobacco user 08/02/2017 Medications: Reviewed last office visit, no changed today per pt Labs: Reviewed from 07/16/25 Anthropometrics: Ht Readings from Last 1 Encounters: 07/16/25 1.549 m (61 ) Wt Readings from Last 1 Encounters: 08/01/25 87.1 kg (192 lb) BMI Readings from Last 1 Encounters: 08/01/25 36.28 kg/m?? Weight History Wt Readings from Last 10 Encounters: 08/01/25 87.1 kg (192 lb) 07/19/25 86.7 kg (191 lb 3.2 oz) 07/16/25 85 kg (187 lb 6.4 oz) 07/16/25 84.4 kg (186 lb) 07/09/25 83.9 kg (185 lb) 07/05/25 85.7 kg (189 lb) 06/25/25 87.1 kg (192 lb) 05/24/25 84.4 kg (186 lb) 04/30/25 84.4 kg (186 lb) 04/23/25 83.5 kg (184 lb) Weight fluctuations ~184-195 lb (higher after hospitalization) 11 lb wt loss x1 yr Edema noted so difficult to interpret wt trends (improved today per pt) Estimated Nutrient Needs: Based on 192 lb / 87.1 kg and 61 in -MSJ BMR= 1325 -4563-5660 kcals (BMR*1.2-1.4) -72 g protein (1.5/kg IBW 47.7 kg) -1.5 L fluid (CHF) -DRI for micronutrients, K+ Exercise, Activity and Social History: Patient is , lives with one her daughters. INSURANCE RISK SURVEYOR support noted. Has met with Rebecca fernandez. Pt wears home O2 3L at rest and 6L with ambulation per assessment by RN on 07/19/25. Does have SNAP/EBT for groceries. Not interested in senior meal delivery services at this time. Nutritional History and Current Issues: 08/01/25: Met w/ pt and daughter Robert. Pt arrives in a wheelchair on O2 via [place]. States feeling stronger after recovering from recent hospitalization. States having a decreased appetite since startingon CA tx at the beginning of May. Taking about 50-75% usual portions for at least 2 mo. +nausea without vomiting at times, not currently. Elevates feet and uses lasix for edema (CHF). She is moving her bowels regularly. Does not use oral nutrition supplements(ONS) but has in the past. Prefers vanilla flavor. PO recall: -cinnamon bagel OR yogurt w/ granola -bologna sandwich -chicken tenders, perogi -water and tea, mostly States eating 3 meals per day. NKFA. Does try to limit salt due to CHF. She is able to do some mealprep and has assistance from her family members as well as INSURANCE RISK SURVEYOR. Nutrition Diagnosis: -Inadequate Oral Intake related to lung CA on tx and COPD (nutrition impact symptoms and increased demand for nutrients as evidenced by hx wt loss and pt report. - NEW Nutrition Risk: MODERATE RISK Previous Nutrition Goal: N/A INTERVENTION AND RECOMMENDATIONS Nutrition Education: Reviewed strategies w/ pt for maintaining PO intake considering current barriers. Reviewed items that may be better tolerated during this time. Low sodium diet for CHF reviewed in detail. Would liberalize restrictions as needed if appetite andweight (dry) are steadily declining. Reviewed importance of supporting lean body mass (muscle), immune function, and tolerance to treatment with adequate nutrition. Encouraged small, frequent meals and snacks each with a source of protein, as able. Protein goals and sources reviewed today. Medical food supplement: Recommend add oral nutrition supplements (ONS) [id number] and/or homemade shakes/smoothies to help meet nutrient needs, especially protein. Recommend take Ensure (or alt brand) shake 1-2x/day fornow after or between meals to supplement and adjust frequency upon f/u depending on PO intake and weight. Will inquire about insurance coverage or other assitance options for [id number] shakes PRN. Pt agrees to try various options and let RD know which one(s) she tolerates. Collaboration and referral of care: Rebecca REECE following pt already Discussed offerings at the [facility]. Materials Provided: -high calorie/protein shakes and smoothies recipe booklet -Ensure Original/MAX/Plus/Clear coupons and samples -Ensure recipe book -nutrition for recovering from hospitalization handout Expected Compliance: (x) Good ( ) Fair ( ) Poor Barriers to Learning: (x) None noted ( ) Other: MONITORING/EVALUATION By follow-up: -Pt will tolerate a PO diet -Pt will have a stable dry weight Offered support and encouragement. Contact information provided. Follow-up PRN via in person visit or telehealth as able. Debra Loya, MS, RD, LDN Outpatient Oncology Dietitian documented in this encounter Plan of Treatment Upcoming Encounters Date Type Department Care Team (Late st Contact Info) Description 08/08/2025 10:30 AM EDT Office Visit [facility] Hematology Oncology [address] [place] [phone] Lashanda Mcgill DO [address] [place] [phone] 08/12/2025 10:00 AM EDT Appointment [facility] Infusion Center [address] [place] [phone] Scheduled Referrals Name Type Priority Associated Diagnoses Order Schedule Ambulatory referral to Nutrition Services Outpatient Referral Routine Squamous cell carcinoma of left lung (CMS/HCC V24, CMS/HCC V28) Once for 1 Occurrences starting 08/01/2025 until 08/01/2025 documented as of this encounter Visit Diagnoses Diagnosis Squamous cell carcinoma of left lung (CMS/HCC V24, CMS/HCC V28) documented in this encounter Additional Health Concerns Assessment Noted Time PHQ-9 Depression Total Score: 1 07/19/20 25 5:04 PM EDT documented as of this encounter Care Teams Locomotive Operator Relationship Specialty Start Date End Date Kinjal Barron FNP [address] [place] [place] [phone] PCP - General Family Medicine 03/06/25 documented as of this encounter
[2025-08-06] VITALS (8 sets, daily range): BP systolic 116–178; BP diastolic 48–94; PULSE 90–114; RESP 17–26; TEMP 36.7–36.9; O2SAT 83–100; BMI 35.9
--- NOTE | ~2025-08-06 | XR_ITS ---
EXAMINATION: XR CHEST 2 VIEWS HISTORY: shortness of breath COMPARISON: Comparison is made with the prior examination dated 06/26/2025. FINDINGS: PA and lateral views of the chest are submitted. A right-sided port is unchanged in position. There is scarring throughout both lungs. No focal airspace opacities are identified. There is no pleural effusion, pneumothorax, or pulmonary vascular congestion. The heart is normal in size there is calcification of the aortic knob.. There is degenerative disc disease of the spine. There are old healed fractures of the bilateral ribs. XR/XR chest 2V IMPRESSION: No acute cardiopulmonary abnormality. Electronically signed by: Amandeep Murphy MD 08/06/2025 02:26 PM EDT RP
--- NOTE | ~2025-08-06 | CT_ITS ---
CLINICAL HISTORY: dyspnea, lung ca CT angiography chest with contrast. 3D Postprocessing. Comparison: CT/SR - CT CHEST WO IV CON - 01/08/25 09:13 EST Findings: The heart size is normal. RV/LV ratio is normal. Right chest wall port a catheter, tip of which is in the right atrium. Calcification of the coronary vasculature. Unremarkable thoracic aorta and great vessels. No aneurysm. No pulmonary artery filling defects. The visualized thyroid and mediastinum are unremarkable. Severe apical predominant emphysema. Stable nodular densities within the left upper lobe anterolaterally, largest of which measures 30 mm (image 32). New, 7 mm nodular density within the left lung base posterolaterally (image 104). New 11 mm nodular density within the right posteromedial lung base ( image 112). The upper abdomen is unremarkable. The bones are intact. IMPRESSION: 1. No pulmonary embolus. 2. Coronary artery disease. 3. New bibasilar pulmonary nodules. Stable left apical nodule. Further assessment with PET CT examination recommended. This document has been electronically signed by: Kinjal Oneal MD on 08/06/2025 18:32:02
--- NOTE | 2025-08-06 13:44 | ECG_ITS ---
Test Reason : sob Blood Pressure : */* mmHG Vent. Rate : 105 BPM Atrial Rate : 105 BPM P-R Int : 132 ms QRS Dur : 88 ms QT Int : 308 ms P-R-T Axes : 60 61 -33 degrees QTcB Int : [address] & T wave abnormality, consider inferior ischemia Abnormal ECG When compared with ECG of 03-Oct-2024 14:32, T wave inversion now evident in Inferior leads Referred By: Hailey Burrell Electronically Signed By: ROGERIO JOHNSON MD
--- NOTE | 2025-08-06 13:44 | ED.GENADULT ---
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 States that she has noticed her oxygen saturation dropping to the low 80s with any mild activity, states has also been dropping at nighttime while wearing 6 L/min of oxygen. She denies any recent cough or fever. Denies chest pain or palpitations. Denies pedal edema. States her next chemo treatment is on Tuesday. Also states that she increased her lasix today. States she was advised to take an extra dose any time she has a weight gain >4lbs in one week per cardiology. MD complaint: shortness of breath Onset (ago): day(s) Related Data Home Medications ?Medication ?Instructions ?Recorded ?Confirmed acetaminophen 500 mg tablet 1,000 mg PO Q8H PRN Pain 02/09/21 10/22/24 alendronate 70 mg tablet (Fosamax) 70 mg PO DOMINGUEZ 02/09/21 10/22/24 cholecalciferol (vitamin D3) 50 50 mcg PO DAILY 02/09/21 10/22/24 mcg (2,000 unit) capsule (Vitamin D3) lamotrigine 150 mg tablet 300 mg PO BEDTIME 02/09/21 10/22/24 mirtazapine 15 mg tablet 15 mg PO BEDTIME 09/10/21 10/22/24 sennosides 8.6 mg tablet (Senokot) 8.6 mg PO BEDTIME 09/10/21 10/22/24 metoprolol succinate 50 mg 100 mg PO DAILY 11/18/21 10/22/24 tablet,extended release 24 hr Oxygen Home Use 04/15/23 10/22/24 nebulizers 04/15/23 10/22/24 pantoprazole 40 mg tablet,delayed 40 mg PO DAILY@0630 06/21/24 10/22/24 release betamethasone dipropionate 0.05 % 1 appl topical Q12H PRN Dermititis 07/27/24 10/22/24 topical cream docusate sodium 100 mg capsule 100 mg PO DAILY PRN Constipation 07/27/24 10/22/24 fluocinolone acetonide oil 0.01 % 4 drp otic (ears) Q48H 07/27/24 10/22/24 ear drops (DermOtic Oil) aripiprazole 10 mg tablet 10 mg PO DAILY 08/20/24 10/22/24 calcium 500 mg (as 1 tab PO BID 08/20/24 10/22/24 carbonate)-vitamin D3 10 mcg (400 unit) tablet (Oyster Shell Calcium-Vitamin D3) lamotrigine 200 mg tablet 200 mg PO DAILY 08/20/24 10/22/24 mineral oil 1 appl topical Q48H PRN eczema 08/20/24 10/22/24 omega 2-dyv-njm-fish oil 1,000 mg 1 cap PO BID 08/20/24 10/22/24 (120 mg-180 mg) capsule (Fish Oil) salmeterol 50 mcg/dose blister 1 inh inhalation BID 08/20/24 10/22/24 powder for inhalation (Serevent Diskus) apixaban 5 mg tablet (Eliquis) 5 mg PO BID 09/26/24 10/22/24 potassium chloride 10 mEq 10 meq PO DAILY 10/03/24 10/22/24 tablet,extended release(part/cryst) (Klor-Con M) gabapentin 100 mg capsule 100 mg PO BID 01/18/25 prednisone 5 mg tablet 15 mg PO DAILY 06/26/25 ferrous gluconate 324 mg (38 mg 324 mg PO DAILY 07/25/25 iron) tablet Previous Rx's ?Medication ?Instructions ?Recorded fluticasone propionate 50 1 spray intranasal DAILY Allergies 02/02/25 mcg/actuation nasal 30 days #16 grams spray,suspension montelukast 10 mg tablet 10 mg PO BEDTIME 90 days #90 tabs 02/02/25 Distilled water 500 ml continuous inhalation DAILY 02/12/25 28 days #14,000 mL loratadine 10 mg tablet (Claritin) 10 mg PO DAILY 30 days #30 tabs 03/11/25 ipratropium bromide 0.02 % 2.5 ml inhalation QID #300 mL 04/10/25 solution for inhalation albuterol sulfate 2.5 mg/3 mL 2.5 mg (3 mL) inhalation QID #360 06/19/25 (0.083 %) solution for nebulization mL albuterol sulfate 90 mcg/actuation 2 puff inhalation Q6H PRN 06/19/25 aerosol inhaler Respiratory Distress #8.5 grams fluticasone furoate 200 1 inh inhalation DAILY SOB 30 days 06/19/25 mcg-vilanterol 25 mcg/dose #60 ea inhalation powder (Breo Ellipta) theophylline 200 mg 200 mg PO BID 30 days #60 tabs 07/04/25 tablet,extended release,12 hr theophylline 300 mg 300 mg PO Q12H #60 tabs 07/04/25 tablet,extended release,12 hr acetazolamide 125 mg tablet 125 mg PO DAILY 3 days #3 tabs 07/25/25 doxycycline monohydrate 100 mg 100 mg PO BID 14 days #28 tabs 07/25/25 tablet furosemide 20 mg tablet (Lasix) 20 mg PO DAILY PRN edema 30 days 07/25/25 #14 tabs potassium chloride 20 mEq oral 20 meq PO BID 5 days #10 ea 07/25/25 packet prednisone 1 mg tablet 4 mg (4 x 1 mg) PO DAILY 30 days 07/25/25 #120 tabs Allergies Allergy/AdvReac Type Severity Reaction Status Date / Time fluoxetine Allergy Severe Irritable Verified 08/06/25 13:56 codeine (Codeine) Allergy Intermediate RESTLESS/RA Verified 08/06/25 13:56 SH haloperidol (Haldol) Allergy Intermediate Palpitation Verified 08/06/25 13:56 s Review of Systems Review of Systems: as per hpi Yes all other systems are reviewed and are negative Constitutional: Constitutional: Reports as per HPI [facility] Past Medical History Medical History (Updated 08/06/25 @ 20:06 by Christophe Fajardo MD) Lung cancer Pulmonary nodule 1 cm or greater in diameter Lung mass RITA (obstructive sleep apnea) Cor pulmonale Rib fractures Pulmonary nodule Tubular adenoma of colon (~2006) Osteopenia (~2012) Bronchopneumonia Chest pain Chronic respiratory alkalosis ILD (interstitial lung disease) CO2 retention Acute on chronic respiratory failure with hypoxia and hypercapnia Bipolar depression Eczema Limb swelling Insomnia Bronchitis Vasomotor rhinitis COPD (chronic obstructive pulmonary disease) Chronic respiratory failure Fall Acute metabolic encephalopathy Acute and chronic respiratory failure with hypercapnia Surgical History History of carpal tunnel surgery (~2000) History of ventral hernia repair (~2003) History of left inguinal hernia repair (~1995) History of tracheostomy (~2016) History of cataract surgery (~2018) History of colonoscopy Family History Family History Other Hypertension Social History Social History Household Members: None Household Members Other:: [facility] Housing: Other Housing Other:: [facility] Are you a primary career and transition teacher to a significant other at home: No Do you presently have visiting nurse or other home services: Yes ([facility] services) Alcohol intake: former Patient Tobacco Use Status: Former Tobacco user Tobacco use type: Cigarette Years Smoked: 20+ years Smoked in Last 30 Days: No e-Cigarette/Vaping Use: Never Used Second Hand Smoke Exposure: No Use of substances other than those prescribed or required for medical reasons: No Advance Directives: Yes Advance Directives on File: Yes Advance Directives Date on File: 11/30/21 service: No Current occupational status: disabled Physical Exam ED Vital Signs: Vital Signs - 24 hr 08/06/25 13:53 08/06/25 14:51 08/06/25 15:10 Temperature 98.0 F 98.4 F Pulse Rate 107 H 104 H 114 H Respiratory Rate 22 H 26 H 19 Blood Pressure 120/48 L 116/68 Pulse Oximetry 94 100 Oxygen Delivery Method Oxymask Nasal Cannula Oxymask Oxygen Flow Rate 5 08/06/25 16:55 08/06/25 17:13 08/06/25 19:09 Temperature 98.2 F Pulse Rate 114 H 102 H Respiratory Rate 20 23 H Blood Pressure 132/71 127/65 Pulse Oximetry 91 L 83 L 92 Oxygen Delivery Method Oxymask Oxymask Oxymask Oxygen Flow Rate 5 6 4 BMI result Body Mass Index 35.9 Vital signs have been reviewed and appear to be correct. Blood pressure normal. Heart rate mildly tachycardic. Respiratory rate normal. Temperature normal. Oxygen saturation hypoxic on room air. Const General: cooperative, no acute distress and ill appearing chronically Orientation/consciousness: oriented to person, oriented to place, oriented to time and patient oriented x3 Limitations: no limitations HENMT Head: Yes normocephalic and Yes atraumatic Ears: external ears normal General nose exam: Normal external nose present Face and sinus: Yes face symmetric Mouth: oropharynx normal and moist mucous membranes Throat: Yes uvula midline Eyes Pupils: Equal, round and reactive pupils present Neck Neck: Yes normal visual inspection and Yes supple Resp Effort & Inspection: normal respiratory effort Auscultation: wheezes expiratory wheezes and diminished lung sounds diffuse Cardio Rate: regular rate Rhythm: regular rhythm Heart sounds: S1 normal heart sound present and S2 normal heart sound present GI Palpation (GI): Soft to palpation and nontender Auscultation: normoactive bowel sounds General: Yes no CVA tenderness Back/Spine/Pelvis Back: no CVA tenderness Skin General skin exam: elasticity normal and turgor normal Neuro General: oriented to person, oriented to place, oriented to time, patient oriented x3, moves all extremities, no focal motor deficits and CN's II-XI intact bilaterally Cranial nerves: Yes Equal, round and reactive pupils present Cognition (Neuro): normal cognition Extrem General: Yes full ROM, Yes no pedal edema and Yes no calf tenderness Psych Mental Status: mental status grossly normal Affect: normal affect Thought process: Normal thought process present Course Reevaluation(s) Reevaluation #1: 8:06 PM 08/06/2025 (Dr. Christophe Fajardo): Proximally 17:00 I took over this patient's care in brief summary she is 70 with recent lung cancer history she was short of breath brought her to the ER baseline uses 3-6 L nasal cannula and was more hypoxic requiring OxyMask at 4 L. The patient was signed out pending a CT of the chest to rule out PE. The patient per the nurse had brief episode of tachycardia unsure whether it was regular or sinus as it was not caught on telemetry for maybe 30 seconds in the 150s to 160s rate. ECG does not show severe tachy dysrhythmia. CT resulted proximally 19:30 with no PE. Unclear with the patient's acute on chronic hypoxemia but she still has increased oxygen demand and remains on OxyMask. Could be deconditioning decompensated COPD/bronchitis there was no focal infiltrate to suggest pneumonia. Case discussed with hospitalist for admission Medications Administered Discontinued Medications Generic Name Dose Route Start Last Admin Trade Name Maximilian PRN Reason Stop Dose Admin Magnesium Sulfate 2 gm in 50 mls @ 150 mls/hr 08/06/25 14:38 08/06/25 15:45 Magnesium Sulfate/H2o IV 08/06/25 14:57 Infused ONCE ONE Infusion Iohexol 100 ml 08/06/25 17:22 08/06/25 17:23 Iohexol 350 Mg/Ml 100 Ml Infus..Btl IV 08/06/25 17:23 65 ml ONCE ONE Administration Levalbuterol HCl 3.75 mg 08/06/25 14:50 08/06/25 14:55 Levalbuterol Hcl 1.25 Mg/3 Ml Vial.Neb INHALE 08/06/25 14:51 3.75 mg ONCE ONE Administration Methylprednisolone Sodium Succinate 60 mg 08/06/25 14:38 08/06/25 15:23 Methylprednisolone Sod Succ 125 Mg/2 Ml Vial IVPUSH 08/06/25 14:39 60 mg ONCE ONE Administration Medical Decision Making Medical Decision Making [facility] Narrative: Patient is a 70-year-old female with 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 On exam patient is awake, A+Ox3, VS WNL, afebrile, normal neurological exam without focal deficits, physical exam findings as above. Given reported symptoms and physical exam findings, initial differential includes but is not limited to COPD exacerbation, PE, CHF exacerbation, viral illness, pneumonia. Labs notable for mild hypokalemia, normal BNP, elevated bicarb on VBG. X-ray chest without focal opacities, effusion, pneumothorax. My interpretation is in agreement with the radiologist's interpretation. Patient signed out to Dr. Fajardo pending CTA chest. Differential Diagnosis Differential Diagnoses: The differential diagnosis associated with the presentation includes as per mdm Admission/Observation Consideration of admission/observation: Escalation of care including admission/observation considered Lab Data [facility] Lab Attestation statement: I reviewed the patient's lab results. as per [facility] 08/06/25 15:02 08/06/25 15:02 Labs: Lab Results 08/06/25 08/06/25 Range/Units 15:02 15:07 WBC 5.1 (4.8-10.8) X10*3/uL RBC 4.00 L (4.20-5.50) X10*6/uL Hgb 11.0 L (12.0-16.0) g/dl Hct 37.1 (37.0-47.0) % MCV 92.8 (80.0-98.0) fL MCH 27.5 (27.0-33.0) pg MCHC 29.6 L (31.0-35.0) g/dl RDW 16.1 H (11.0-16.0) % Plt Count 273 (160-400) X10*3/uL MPV 8.6 L (9.4-12.3) fL Immature Gran % (Auto) 1.4 H (0.0-0.4) % Neut % (Auto) 90.3 H (45-73) % Lymph % (Auto) 4.7 L (20-40) % [place] % (Auto) 3.2 (2-11) % Eos % (Auto) 0.0 (0-4) % Baso % (Auto) 0.4 (0-2) % Lymph # (Auto) 0.2 L (1.2-4.9) X10*3/uL [place] # (Auto) 0.2 (0.1-1.2) X10*3/uL Eos # (Auto) 0.0 (0.0-0.4) X10*3/uL Baso # (Auto) 0.0 (0.0-0.2) X10*3/uL Abs Immat Gran (auto) 0.07 H (0.00-0.03) X10*3/uL Absolute Neuts (auto) 4.6 (2.0-8.3) x10*3/uL Absolute Nucleated RBC 0.000 (0.0-0.012) X10*3/uL Nucleated RBC % (auto) 0.0 (0.0-0.2) /100WBC Smear Tech's Comments VERIFIED PT 13.1 H D (10.9-12.4) SEC INR 1.1 (0.9-1.1) VBG pH 7.37 (7.32-7.43) VBG pCO2 84 mmHg VBG pO2 76 mmHg VBG HCO3 49 H (22-26) mmol/L VBG O2 Saturation 93.0 % VBG Base Excess 19.8 mmol/L Sodium 146 H (135-145) mmol/L Potassium 3.1 L (3.3-5.1) mmol/L Chloride 94 L (96-108) mmol/L Carbon Dioxide 42 H* (22-29) mmol/L Anion Gap 13 (12-20) BUN 24 H (9-16) mg/dL Creatinine 0.84 (0.5-1.4) mg/dL Estim Creat Clear Calc 61.2 Estimated GFR > 60 Random Glucose 154 H (60-115) mg/dL Calcium 9.2 (8.4-10.2) mg/dL Magnesium 1.7 (1.6-2.6) mg/dL Total Bilirubin 0.1 (0.0-1.0) mg/dL AST 29 (5-31) U/L ALT 19 (0-31) U/L Alkaline Phosphatase 109 (39-117) U/L Troponin I High Sens 4.2 (<3.5-17.0) ng/L B-Natriuretic Peptide 60 (<100) pg/mL Total Protein 7.0 (6.5-8.0) g/dL Albumin 4.1 (3.5-5.0) g/dL COVID-19 (EDU) Negative (Negative) COVID-19 Clin Com See Note Influenza Type A (MARY ALICE) Negative (Negative) Influenza Type B (MARY ALICE) Negative (Negative) Influenza A & B Note See Note Independent Interpretation I performed an independent interpretation of an: EKG (sinus tachycardia, rate 105bpm, normal NC interval and QTc) and Plain X-Ray Interpretation: X-ray chest without focal opacities, effusion, pneumothorax. Radiology Impression Discussion of test interpretation with radiology: I have reviewed the radiologist's reading. Radiologist Impression: XR/XR chest 2V IMPRESSION: No acute cardiopulmonary abnormality. External Record Review External record reviewed: Inpatient record, Office record and Outpatient record Discharge Plan Discharge Clinical Impression: Chronic respiratory failure Patient Disposition: Admitted As Inpatient
[2025-08-06 15:10] LABS: Hematocrit 37.1 % (37.0-47.0); Hemoglobin 11.0 g/dl (12.0-16.0); Imm Gran Abs Auto 0.07 X10*3/uL (0.00-0.03); Imm Gran Pct Auto 1.4 % (0.0-0.4); Lymphocytes Absolute Auto 0.2 X10*3/uL (1.2-4.9); MANUAL DIFF FLAG SCAN; Mean Corpuscular HGB Conc 29.6 g/dl (31.0-35.0); Mean Corpuscular Hemoglobin 27.5 pg (27.0-33.0); Mean Corpuscular Volume 92.8 fL (80.0-98.0); NRBC Abs Auto 0.000 X10*3/uL (0.0-0.012); NRBC Pct Auto 0.0 /100WBC (0.0-0.2); Platelet Count 273 X10*3/uL (160-400); Red Blood Count 4.00 X10*6/uL (4.20-5.50); SCAN SMEAR FLAG 1; White Blood Count 5.1 X10*3/uL (4.8-10.8)
[2025-08-06 15:11] LABS: Venous Blood Gas Refer to POC result
[2025-08-06 15:13] LABS: VBG HCO3 49 mmol/L (22-26); VBG O2 % Saturation 93.0 %
[2025-08-06] MEDS: Magnesium Sulfate/H2O 2 GM/50 ML PIGGYBACK IV (15:23)
[2025-08-06 15:24] LABS: COVID-19 Test Negative (Negative)
[2025-08-06 15:25] LABS: IDNOW Serial# 152EDE1D; Influenza B2 Negative (Negative)
[2025-08-06 15:26] LABS: IDNOW Serial# 16C4AD1C
[2025-08-06 15:27] LABS: Alanine Aminotransferase 19 U/L (0-31); Albumin Level 4.1 g/dL (3.5-5.0); Alkaline Phosphatase 109 U/L (39-117); Anion Gap 13 (12-20); Aspartate Amino Transferase 29 U/L (5-31); Blood Urea Nitrogen 24 mg/dL (9-16); Calcium 9.2 mg/dL (8.4-10.2); Carbon Dioxide 42 mmol/L (22-29); Chloride 94 mmol/L (96-108); Creatinine Clr Calc Pharmacy 61.2; Estimated Glomerular Filt Rate > 60; Magnesium 1.7 mg/dL (1.6-2.6); Potassium 3.1 mmol/L (3.3-5.1); Sodium 146 mmol/L (135-145); Total Protein 7.0 g/dL (6.5-8.0)
[2025-08-06 15:30] LABS: B Type Natriuretic Peptide 60 pg/mL (<100)
[2025-08-06 15:31] LABS: Troponin-I High Sensitivity 4.2 ng/L (<3.5-17.0)
[2025-08-06 15:47] LABS: INTERNATIONAL NORM RATIO 1.1 (0.9-1.1); Prothrombin Time 13.1 SEC (10.9-12.4)
--- NOTE | 2025-08-06 16:53 | ECG_ITS ---
Test Reason : TACHYCARDIA Blood Pressure : */* mmHG Vent. Rate : 111 BPM Atrial Rate : 111 BPM P-R Int : 152 ms QRS Dur : 80 ms QT Int : 276 ms P-R-T Axes : 48 67 186 degrees QTcB Int : 375 ms Sinus tachycardia Marked ST abnormality, possible lateral subendocardial injury Abnormal ECG When compared with ECG of 06-Aug-2025 15:06, ST more depressed Lateral leads Referred By: Shiloh Lau Electronically Signed By: ROGERIO JOHNSON MD
--- NOTE | 2025-08-06 16:53 | PC.NURSE ---
Pt states she has had high HR. daughter confirmed. This RN witnessed tachycardia to 150's. Pt denies CP, palpitations. Provider made aware.
--- NOTE | 2025-08-06 17:13 | PC.NURSE ---
according to tech, pt desated with just minimal effort repositioning in bed. recovered quickly
[2025-08-06] MEDS: iohexoL 350 MG/ML 100 ML INFUS..BTL IV (17:23)
--- OUTSIDE RECORDS SUMMARY | 2025-08-06 18:01 | XMS_ITS | Encounter Summary ---
Author Organization [facility] Address [address] [place] [address] Care Team Providers Care Egg Processing Supervisor Name Role Phone Kinjal Barron FACILITIES MANAGEMENT EXECUTIVE Primary Care Provid er Encounter Details Date Type Department Care Team (Late Contact Info) Description 10/15/[address] [facility] - Main Lab [address] [facility] [place] [address] Alley San NP [address] [facility] [address] [facility] [place] [address] Chronic obstructive pulmonary disease, unspecified (CMS/HCC V24, [facility]/HCC V28) Social History Tobacco Use Types Packs/Day [...] Department Care Team (Late Contact Info) Description 08/08/2025 10:30 AM EDT Office Visit [facility] Hematology Oncology [address] [place] [address] Lashanda Mcgill, [address] [place] [address] 08/12/2025 10:00 AM EDT Appointment [facility] Infusion Center [address] [phone] documented as of this encounter Procedures Procedure Name Priority Date/Time Associated Diagnosis Comments COMPLETE BLOOD COUNT Routine 10/15/2024 8:35 AM EST Chronic obstructive pulmonary disease, unspecified (CMS/HCC) BASIC METABOLIC PANEL Routine 10/15/2024 8:35 AM EST Chronic obstructive pulmonary disease, unspecified ([facility]/HCC) documented in this encounter Results * (ABNORMAL) Basic metabolic panel (10/15/2024 8:35 AM EST) Sodium 140 133 - 145 mmol/L LAB CHEMISTRY METHOD 10/15/2024 1:16 PM [facility] Potassium 3.8 3.5 - 5.5 mmol/L LAB CHEMISTRY METHOD 10/15/2024 1:16 PM [facility] Chloride 90(L) 96 - 110 mmol/L LAB CHEMISTRY METHOD 10/15/2024 1:16 PM [facility] CO2 40(H) 21 - 32 mmol/L LAB CHEMISTRY METHOD 10/15/2024 1:16 PM [facility] Anion Gap 10 3 - 11 LAB CHEMISTRY METHOD 10/15/2024 1:16 PM [facility] Glucose 81 70 - 100 mg/dL LAB CHEMISTRY METHOD 10/15/2024 1:16 PM [facility] BUN 15 5 - 25 mg/dL LAB CHEMISTRY METHOD 10/15/2024 1:16 PM [facility] Creatinine 1.00 0.50 - 1.10 mg/dL LAB CHEMISTRY METHOD 10/15/2024 1:16 PM EST [facility] eGFR 61 >=60 mL/min/1. 73m2 LAB CHEMISTRY METHOD 10/15/2024 1:16 PM [facility] Comment:Calculation based on the Chronic Kidney Disease Epidemiology Collaboration (CKD-EPI) equation refit without adjustment for race. BUN/Creatinine Ratio 15.0 LAB CHEMISTRY METHOD 10/15/2024 1:16 PM [facility] Calcium 9.6 8.5 - 10.5 mg/dL LAB CHEMISTRY METHOD 10/15/2024 1:16 PM [facility] Blood Venous blood specimen / Unknown Venipuncture / Unknown 10/15/2024 8:35 AM EST 10/15/2024 11:13 AM EST Alley San BIOLOGICAL PLANT OPERATOR LAB BLOOD ORDERABLES Final Re sult [facility] [address] [place] [address], * (ABNORMAL) Complete blood count (10/15/2024 8:35 AM EST) WBC 8.3 4.8 - 10.8 K/mcL LAB HEMETOLOGY METHOD 10/15/2024 12:51 PM [facility] RBC 3.80 3.80 - 4.80 M/[facility] LAB HEMETOLOGY METHOD 10/15/2024 12:51 PM [facility] Hemoglobin 10.7(L) 11.5 - 16.0 g/dL LAB HEMETOLOGY METHOD 10/15/2024 12:51 PM [facility] Hematocrit 37.8 35.0 - 47.0 % LAB HEMETOLOGY METHOD 10/15/2024 12:51 PM [facility] MCV 98.4(H) 79.0 - 98.0 FL LAB HEMETOLOGY METHOD 10/15/2024 12:51 PM [facility] MCH 27.9 27.0 - 32.0 pcg LAB HEMETOLOGY METHOD 10/15/2024 12:51 PM EST [facility] MCHC 28.3(L) 32.0 - 37.0 g/dL LAB HEMETOLOGY METHOD 10/15/2024 12:51 PM [facility] RDW 15.2(H) 11.0 - 15.0 % LAB HEMETOLOGY METHOD 10/15/2024 12:51 PM [facility] Platelets 474(H) 130 - 400 K/mcL LAB HEMETOLOGY METHOD 10/15/2024 12:51 PM [facility] MPV 9.6 7.0 - 11.0 FL LAB HEMETOLOGY METHOD 10/15/2024 12:51 PM [facility] NRBC 0.0 <1.0 % LAB HEMETOLOGY METHOD 10/15/2024 12:51 PM [facility] NRBC Absolute 0.00 <0.10 K/mcL LAB HEMETOLOGY METHOD 10/15/2024 12:51 PM [facility] Blood Venous blood specimen / Unknown Venipuncture / Unknown 10/15/2024 8:35 AM EST 10/15/2024 11:13 AM EST Alley San BIOLOGICAL PLANT OPERATOR LAB BLOOD ORDERABLES Final Re sult [facility] [address] [place] [address], documented in this encounter Visit Diagnoses Diagnosis Chronic obstructive pulmonary disease, unspecified (CMS/HCC V24, CMS/HCC V28) documented in this encounter Additional Health Concerns Infection Onset Date Last Indicated Resolved Time Tuberculosis Rule-Out 04/03/2025 04/03/20252024 3:00 PM EDT Respiratory Rule-Out 07/06/2025 07/06/2025 025 4:37 AM EDT COVID-19 Rule-Out 07/06/2025 07/06/2025 07/06/2025 4:37 AM EDT documented as of this encounter Care Teams Egg Processing Supervisor Relationship Specialty Start Date End Date Kinjal Barron FNP [address] [place] [address] PCP - General Family Medicine 03/06/25 documented as of this encounter
--- OUTSIDE RECORDS SUMMARY | 2025-08-06 18:01 | XMS_ITS | Encounter Summary ---
Author Organization [facility] Address [address] [place] [address] Care Team Providers Care Clip Coater Name Role Phone Kinjal Barron LUMBER KILN OPERATOR Primary Care Provid er Encounter Details Date Type Department Care Team (Late st Contact Info) Description 12/11/2024 Lab Requisition [facility] - Main Lab 299 [facility] [place] [address] Glenroy Goff MD [address] [place] [address], [phone] Chronic obstructive pulmonary disease, unspecified (CMS/HCC [...] Description 08/08/2025 10:30 AM EDT Office Visit [facility] Hematology Oncology [address] [place] [address] Lashanda Mcgill, DO [address] [place] [address] 08/12/2025 10:00 AM EDT Appointment [facility] Infusion Center [address] [address] documented as of this encounter Procedures Procedure Name Priority Date/Time Associated Diagnosis Comments COMPLETE BLOOD COUNT Routine 12/11/2024 6:30 AM EST Chronic obstructive pulmonary disease, unspecified ([facility]/HCC) BASIC METABOLIC PANEL Routine 12/11/2024 6:30 AM EST Chronic obstructive pulmonary disease, unspecified ([facility]/HCC) documented in this encounter Results * (ABNORMAL) Basic metabolic panel (12/11/2024 6:30 AM EST) Sodium 131(L) 133 - 145 mmol/L LAB CHEMISTRY METHOD 12/11/2024 11:11 AM [facility] LAB Potassium 4.1 3.5 - 5.5 mmol/L LAB CHEMISTRY METHOD 12/11/2024 11:11 AM [facility] LAB Chloride 84(L) 96 - 110 mmol/L LAB CHEMISTRY METHOD 12/11/2024 11:11 AM [facility] LAB CO2 43(HH) 21 - 32 mmol/L LAB CHEMISTRY METHOD 12/11/2024 11:11 AM [facility] LAB Anion Gap 4 3 - 11 LAB CHEMISTRY METHOD 12/11/2024 11:11 AM [facility] LAB Glucose 89 70 - 100 mg/dL LAB CHEMISTRY METHOD 12/11/2024 11:11 AM [facility] BUN 17 5 - 25 mg/dL LAB CHEMISTRY METHOD 12/11/2024 11:11 AM [facility] LAB Creatinine 0.83 0.50 - 1.10 mg/dL LAB CHEMISTRY METHOD 12/11/2024 11:11 AM [facility] LAB eGFR 76 >=60 mL/min/1. 73m2 LAB CHEMISTRY METHOD 12/11/2024 11:11 AM [facility] LAB Comment:Calculation based on the Chronic Kidney Disease Epidemiology Collaboration (CKD-EPI) equation refit without adjustment for race. BUN/Creatinine Ratio 20.5 LAB CHEMISTRY METHOD 12/11/2024 11:11 AM [facility] LAB Calcium 8.6 8.5 - 10.5 mg/dL LAB CHEMISTRY METHOD 12/11/2024 11:11 AM [facility] LAB Blood Venous blood specimen / Unknown Venipuncture / Unknown 12/11/2024 6:30 AM EST 12/11/2024 9:22 AM EST us Glenroy Goff MD LAB BLOOD ORDERABLES Final Resul t [facility] [address] [place] [address], [place] [phone] * (ABNORMAL) Complete blood count (12/11/2024 6:30 AM EST) WBC 7.2 4.8 - 10.8 K/mcL LAB HEMETOLOGY METHOD 12/11/2024 11:11 AM [facility] RBC 3.00(L) 3.80 - 4.80 M/mcL LAB HEMETOLOGY METHOD 12/11/2024 11:11 AM [facility] Hemoglobin 7.5(L) 11.5 - 16.0 g/dL LAB HEMETOLOGY METHOD 12/11/2024 11:11 AM [facility] LAB Hematocrit 26.9(L) 35.0 - 47.0 % LAB HEMETOLOGY METHOD 12/11/2024 11:11 AM [facility] LAB MCV 89.4 79.0 - 98.0 FL LAB HEMETOLOGY METHOD 12/11/2024 11:11 AM EST [facility] LAB MCH 24.9(L) 27.0 - 32.0 pcg LAB HEMETOLOGY METHOD 12/11/2024 11:11 AM [facility] LAB MCHC 27.9(L) 32.0 - 37.0 g/dL LAB HEMETOLOGY METHOD 12/11/2024 11:11 AM [facility] LAB RDW 15.7(H) 11.0 - 15.0 % LAB HEMETOLOGY METHOD 12/11/2024 11:11 AM [facility] LAB Platelets 399 130 - 400 K/mcL LAB HEMETOLOGY METHOD 12/11/2024 11:11 AM [facility] LAB MPV 10.0 7.0 - 11.0 FL LAB HEMETOLOGY METHOD 12/11/2024 11:11 AM [facility] LAB NRBC 0.0 <1.0 % LAB HEMETOLOGY METHOD 12/11/2024 11:11 AM [facility] LAB NRBC Absolute 0.00 <0.10 K/mcL LAB HEMETOLOGY METHOD 12/11/2024 11:11 AM [facility] LAB Blood Venous blood specimen / Unknown Venipuncture / Unknown 12/11/2024 6:30 AM EST 12/11/2024 9:22 AM EST us Glenroy Goff MD LAB BLOOD ORDERABLES Final Resul t [facility] [address] [place] [address], documented in this encounter Visit Diagnoses Diagnosis Chronic obstructive pulmonary disease, unspecified (CMS/HCC V24, CMS/HCC V28) documented in this encounter Additional Health Concerns Infection Onset Date Last Indicated Resolved Time Tuberculosis Rule-Out 04/03/2025 04/03/20252024 3:00 PM EDT Respiratory Rule-Out 07/06/2025 07/06/2025 025 4:37 AM EDT COVID-19 Rule-Out 07/06/2025 07/06/2025 07/06/2025 4:37 AM EDT documented as of this encounter Care Teams Clip Coater Relationship Specialty Start Date End Date Kinjal Barron FNP [address] [place] [address] PCP - General Family Medicine 03/06/25 documented as of this encounter
--- OUTSIDE RECORDS SUMMARY | 2025-08-06 18:01 | XMS_ITS | Encounter Summary ---
Author Organization [facility] Address [address] [place] [address] Care Team Providers Care Litigation Legal Secretary Name Role Phone Kinjal Barron INDIGO VAT TENDER CLOTH Primary Care Provid er Encounter Details Date Type Department Care Team (Late st Contact Info) Description 11/03/2024 Lab Requisition [facility] - Main Lab 299 [facility] [place] [address] Janice Núñez MD [address] [place] [address] Chronic obstructive pulmonary disease, unspecified (CMS/HCC V24, [...] Description 08/08/2025 10:30 AM EDT Office Visit [facility] Hematology Oncology [address] [place] [address] Lashanda Mcgill, DO 271 [place] [address] 08/12/2025 10:00 AM EDT Appointment [facility] Infusion Center [address] [address] documented as of this encounter [...] mmol/L LAB CHEMISTRY METHOD 11/05/2024 11:51 AM [facility] Potassium 4.1 3.5 - 5.5 mmol/L LAB CHEMISTRY METHOD 11/05/2024 11:51 AM [facility] LAB Chloride 98 96 - 110 mmol/L LAB CHEMISTRY METHOD 11/05/2024 11:51 AM [facility] CO2 43(HH) 21 - 32 mmol/L LAB CHEMISTRY METHOD 11/05/2024 11:51 AM [facility] Anion Gap 0(L) 3 - 11 LAB CHEMISTRY METHOD 11/05/2024 11:51 AM [facility] Glucose 95 70 - 100 mg/dL LAB CHEMISTRY METHOD 11/05/2024 11:51 AM [facility] BUN 12 5 - 25 mg/dL LAB CHEMISTRY METHOD 11/05/2024 11:51 AM [facility] Creatinine 0.97 0.50 - 1.10 mg/dL LAB CHEMISTRY METHOD 11/05/2024 11:51 AM EST [facility] LAB eGFR 63 >=60 mL/min/1. 73m2 LAB CHEMISTRY METHOD 11/05/2024 11:51 AM [facility] LAB Comment:Calculation based on the Chronic Kidney Disease Epidemiology Collaboration (CKD-EPI) equation refit without adjustment for race. BUN/Creatinine Ratio 12.4 LAB CHEMISTRY METHOD 11/05/2024 11:51 AM [facility] Calcium 9.0 8.5 - 10.5 mg/dL LAB CHEMISTRY METHOD 11/05/2024 11:51 AM [facility] Blood Venous blood specimen / Unknown Venipuncture / Unknown 11/05/2024 8:13 AM EST 11/05/2024 10:37 AM EST Janice Núñez MD LAB BLOOD ORDERABLES Final Resul t [facility] LAB [address] [place] [address], [place] [phone] * (ABNORMAL) Complete blood count (11/05/2024 8:13 AM EST) WBC 5.7 4.8 - 10.8 K/mcL LAB HEMETOLOGY METHOD 11/05/2024 11:00 AM [facility] RBC 3.70(L) 3.80 - 4.80 M/mcL LAB HEMETOLOGY METHOD 11/05/2024 11:00 AM [facility] Hemoglobin 9.8(L) 11.5 - 16.0 g/dL LAB HEMETOLOGY METHOD 11/05/2024 11:00 AM [facility] Hematocrit 34.3(L) 35.0 - 47.0 % LAB HEMETOLOGY METHOD 11/05/2024 11:00 AM [facility] LAB MCV 93.7 79.0 - 98.0 FL LAB HEMETOLOGY METHOD 11/05/2024 11:00 AM [facility] LAB MCH 26.8(L) 27.0 - 32.0 pcg LAB HEMETOLOGY METHOD 11/05/2024 11:00 AM [facility] LAB MCHC 28.6(L) 32.0 - 37.0 g/dL LAB HEMETOLOGY METHOD 11/05/2024 11:00 AM [facility] LAB RDW 14.5 11.0 - 15.0 % LAB HEMETOLOGY METHOD 11/05/2024 11:00 AM [facility] Platelets 429(H) 130 - 400 K/mcL LAB HEMETOLOGY METHOD 11/05/2024 11:00 AM [facility] LAB MPV 9.5 7.0 - 11.0 FL LAB HEMETOLOGY METHOD 11/05/2024 11:00 AM [facility] NRBC 0.0 <1.0 % LAB HEMETOLOGY METHOD 11/05/2024 11:00 AM [facility] LAB NRBC Absolute 0.00 <0.10 K/mcL LAB HEMETOLOGY METHOD 11/05/2024 11:00 AM [facility] Blood Venous blood specimen / Unknown Venipuncture / Unknown 11/05/2024 8:13 AM EST 11/05/2024 10:37 AM EST us Janice Núñez MD LAB BLOOD ORDERABLES Final Resul t [facility] [address] [place] [address], documented in this encounter Visit Diagnoses Diagnosis Chronic obstructive pulmonary disease, unspecified (CMS/HCC V24, CMS/HCC V28) documented in this encounter Additional Health Concerns Infection Onset Date Last Indicated Resolved Time Tuberculosis Rule-Out 04/03/2025 04/03/20252024 3:00 PM EDT Respiratory Rule-Out 07/06/2025 07/06/2025 025 4:37 AM EDT COVID-19 Rule-Out 07/06/2025 07/06/2025 07/06/2025 4:37 AM EDT documented as of this encounter Care Teams Litigation Legal Secretary Relationship Specialty Start Date End Date Kinjal Barron FNP [address] [place] [address] PCP - General Family Medicine 03/06/25 documented as of this encounter
--- OUTSIDE RECORDS SUMMARY | 2025-08-06 18:01 | XMS_ITS | Encounter Summary ---
Author Organization [facility] Address [address] [place] [address] Care Team Providers Care Business Management Specialist Name Role Phone Kinjal Barron ETHICS MANAGER Primary Care Provid er Encounter Details Date Type Department Care Team (Late st Contact Info) Description 11/02/2024 Lab Requisition [facility] - Main Lab 299 [facility] [place] [address] Janice Núñez MD [address] [place] [address] Chronic obstructive pulmonary disease, unspecified (CMS/HCC V24, [...] Description 08/08/2025 10:30 AM EDT Office Visit [facility] Hematology Oncology [address] [place] [address] Lashanda Mcgill, DO [address] [place] [address] 08/12/2025 10:00 AM EDT Appointment [facility] Infusion Center [address] [address] documented as of this encounter Procedures Procedure Name Priority Date/Time Associated Diagnosis Comments COMPLETE BLOOD COUNT Routine 11/02/2024 6:47 AM EST Chronic obstructive pulmonary disease, unspecified (CMS/HCC) BASIC METABOLIC PANEL Routine 11/02/2024 6:47 AM EST Chronic obstructive pulmonary disease, unspecified ([facility]/HCC) documented in this encounter Results * (ABNORMAL) Basic metabolic panel (11/02/2024 6:47 AM EST) Sodium 138 133 - 145 mmol/L LAB CHEMISTRY METHOD 11/02/2024 11:22 AM [facility] LAB Potassium 4.0 3.5 - 5.5 mmol/L LAB CHEMISTRY METHOD 11/02/2024 11:22 AM [facility] LAB Chloride 93(L) 96 - 110 mmol/L LAB CHEMISTRY METHOD 11/02/2024 11:22 AM [facility] LAB CO2 40(H) 21 - 32 mmol/L LAB CHEMISTRY METHOD 11/02/2024 11:22 AM [facility] LAB Anion Gap 5 3 - 11 LAB CHEMISTRY METHOD 11/02/2024 11:22 AM [facility] LAB Glucose 86 70 - 100 mg/dL LAB CHEMISTRY METHOD 11/02/2024 11:22 AM [facility] LAB BUN 12 5 - 25 mg/dL LAB CHEMISTRY METHOD 11/02/2024 11:22 AM [facility] LAB Creatinine 0.86 0.50 - 1.10 mg/dL LAB CHEMISTRY METHOD 11/02/2024 11:22 AM EST [facility] LAB eGFR 73 >=60 mL/min/1. 73m2 LAB CHEMISTRY METHOD 11/02/2024 11:22 AM [facility] LAB Comment:Calculation based on the Chronic Kidney Disease Epidemiology Collaboration (CKD-EPI) equation refit without adjustment for race. BUN/Creatinine Ratio 14.0 LAB CHEMISTRY METHOD 11/02/2024 11:22 AM [facility] LAB Calcium 8.9 8.5 - 10.5 mg/dL LAB CHEMISTRY METHOD 11/02/2024 11:22 AM [facility] LAB Blood Venous blood specimen / Unknown Venipuncture / Unknown 11/02/2024 6:47 AM EST 11/02/2024 9:35 AM EST Janice Núñez MD LAB BLOOD ORDERABLES Final Resul t [facility] [address] [place] [address], [place] [phone] * (ABNORMAL) Complete blood count (11/02/2024 6:47 AM EST) WBC 7.4 4.8 - 10.8 K/mcL LAB HEMETOLOGY METHOD 11/02/2024 10:51 AM [facility] RBC 3.60(L) 3.80 - 4.80 M/mcL LAB HEMETOLOGY METHOD 11/02/2024 10:51 AM [facility] LAB Hemoglobin 9.7(L) 11.5 - 16.0 g/dL LAB HEMETOLOGY METHOD 11/02/2024 10:51 AM [facility] LAB Hematocrit 33.4(L) 35.0 - 47.0 % LAB HEMETOLOGY METHOD 11/02/2024 10:51 AM [facility] LAB MCV 93.6 79.0 - 98.0 FL LAB HEMETOLOGY METHOD 11/02/2024 10:51 AM EST [facility] MCH 27.2 27.0 - 32.0 pcg LAB HEMETOLOGY METHOD 11/02/2024 10:51 AM [facility] LAB MCHC 29.0(L) 32.0 - 37.0 g/dL LAB HEMETOLOGY METHOD 11/02/2024 10:51 AM [facility] LAB RDW 14.6 11.0 - 15.0 % LAB HEMETOLOGY METHOD 11/02/2024 10:51 AM [facility] LAB Platelets 509(H) 130 - 400 K/mcL LAB HEMETOLOGY METHOD 11/02/2024 10:51 AM [facility] LAB MPV 9.7 7.0 - 11.0 FL LAB HEMETOLOGY METHOD 11/02/2024 10:51 AM [facility] LAB NRBC 0.0 <1.0 % LAB HEMETOLOGY METHOD 11/02/2024 10:51 AM [facility] LAB NRBC Absolute 0.00 <0.10 K/mcL LAB HEMETOLOGY METHOD 11/02/2024 10:51 AM [facility] LAB Blood Venous blood specimen / Unknown Venipuncture / Unknown 11/02/2024 6:47 AM EST 11/02/2024 9:35 AM EST us Janice Núñez MD LAB BLOOD ORDERABLES Final Resul t [facility] LAB [address] [place] [address], documented in this encounter Visit Diagnoses Diagnosis Chronic obstructive pulmonary disease, unspecified (CMS/HCC V24, CMS/HCC V28) documented in this encounter Additional Health Concerns Infection Onset Date Last Indicated Resolved Time Tuberculosis Rule-Out 04/03/2025 04/03/20252024 3:00 PM EDT Respiratory Rule-Out 07/06/2025 07/06/2025 025 4:37 AM EDT COVID-19 Rule-Out 07/06/2025 07/06/2025 07/06/2025 4:37 AM EDT documented as of this encounter Care Teams Business Management Specialist Relationship Specialty Start Date End Date Kinjal Barron FNP [address] [place] [address] PCP - General Family Medicine 03/06/25 documented as of this encounter
--- OUTSIDE RECORDS SUMMARY | 2025-08-06 18:01 | XMS_ITS | Encounter Summary ---
Author Organization [facility] Address [address] [place] [address] Care Team Providers Care Finished Yarn Examiner Name Role Phone Kinjal Barron PLAN CONSULTANT Primary Care Provid er Encounter Details Date Type Department Care Team (Late st Contact Info) Description 10/27/2024 Lab Requisition [facility] - Main Lab 299 [facility] [place] [address] Janice Núñez MD [address] [place] [address] Chronic obstructive pulmonary disease, unspecified (CMS/HCC V24, [...] Description 08/08/2025 10:30 AM EDT Office Visit [facility] Hematology Oncology [address] [place] [address] Lashanda Mcgill, DO [address] [place] [address] 08/12/2025 10:00 AM EDT Appointment [facility] Infusion Center [address] [address] documented as of this encounter Procedures Procedure Name Priority Date/Time Associated Diagnosis Comments COMPLETE BLOOD COUNT Routine 10/29/2024 8:00 AM EST Chronic obstructive pulmonary disease, unspecified (CMS/HCC) BASIC METABOLIC PANEL Routine 10/29/2024 8:00 AM EST Chronic obstructive pulmonary disease, unspecified ([facility]/HCC) documented in this encounter Results * (ABNORMAL) Basic metabolic panel (10/29/2024 8:00 AM EST) Sodium 138 133 - 145 mmol/L LAB CHEMISTRY METHOD 10/29/2024 2:01 PM [facility] LAB Potassium 3.6 3.5 - 5.5 mmol/L LAB CHEMISTRY METHOD 10/29/2024 2:01 PM [facility] LAB Chloride 91(L) 96 - 110 mmol/L LAB CHEMISTRY METHOD 10/29/2024 2:01 PM [facility] LAB CO2 40(H) 21 - 32 mmol/L LAB CHEMISTRY METHOD 10/29/2024 2:01 PM [facility] LAB Anion Gap 7 3 - 11 LAB CHEMISTRY METHOD 10/29/2024 2:01 PM [facility] LAB Glucose 86 70 - 100 mg/dL LAB CHEMISTRY METHOD 10/29/2024 2:01 PM [facility] LAB BUN 15 5 - 25 mg/dL LAB CHEMISTRY METHOD 10/29/2024 2:01 PM [facility] LAB Creatinine 0.89 0.50 - 1.10 mg/dL LAB CHEMISTRY METHOD 10/29/2024 2:01 PM [facility] LAB eGFR 70 >=60 mL/min/1. 73m2 LAB CHEMISTRY METHOD 10/29/2024 2:01 PM [facility] LAB Comment:Calculation based on the Chronic Kidney Disease Epidemiology Collaboration (CKD-EPI) equation refit without adjustment for race. BUN/Creatinine Ratio 16.9 LAB CHEMISTRY METHOD 10/29/2024 2:01 PM [facility] LAB Calcium 9.3 8.5 - 10.5 mg/dL LAB CHEMISTRY METHOD 10/29/2024 2:01 PM [facility] LAB Blood Venous blood specimen / Unknown Venipuncture / Unknown 10/29/2024 8:00 AM EST 10/29/2024 11:30 AM EST Janice Núñez MD LAB BLOOD ORDERABLES Final Resul t [facility] [address] [place] [address], [place] [phone] * (ABNORMAL) Complete blood count (10/29/2024 8:00 AM EST) WBC 6.3 4.8 - 10.8 K/mcL LAB HEMETOLOGY METHOD 10/29/2024 12:10 PM [facility] LAB RBC 3.70(L) 3.80 - 4.80 M/mcL LAB HEMETOLOGY METHOD 10/29/2024 12:10 PM [facility] LAB Hemoglobin 10.1(L) 11.5 - 16.0 g/dL LAB HEMETOLOGY METHOD 10/29/2024 12:10 PM [facility] LAB Hematocrit 35.2 35.0 - 47.0 % LAB HEMETOLOGY METHOD 10/29/2024 12:10 PM [facility] LAB MCV 94.1 79.0 - 98.0 FL LAB HEMETOLOGY METHOD 10/29/2024 12:10 PM [facility] LAB MCH 27.0 27.0 - 32.0 pcg LAB HEMETOLOGY METHOD 10/29/2024 12:10 PM EST [facility] MCHC 28.7(L) 32.0 - 37.0 g/dL LAB HEMETOLOGY METHOD 10/29/2024 12:10 PM [facility] LAB RDW 14.5 11.0 - 15.0 % LAB HEMETOLOGY METHOD 10/29/2024 12:10 PM [facility] LAB Platelets 504(H) 130 - 400 K/mcL LAB HEMETOLOGY METHOD 10/29/2024 12:10 PM EST [facility] MPV 9.3 7.0 - 11.0 FL LAB HEMETOLOGY METHOD 10/29/2024 12:10 PM [facility] LAB NRBC 0.0 <1.0 % LAB HEMETOLOGY METHOD 10/29/2024 12:10 PM [facility] LAB NRBC Absolute 0.00 <0.10 K/mcL LAB HEMETOLOGY METHOD 10/29/2024 12:10 PM [facility] LAB Blood Venous blood specimen / Unknown Venipuncture / Unknown 10/29/2024 8:00 AM EST 10/29/2024 11:30 AM EST us Janice Núñez MD LAB BLOOD ORDERABLES Final Resul t [facility] [address] [place] [address], documented in this encounter Visit Diagnoses Diagnosis Chronic obstructive pulmonary disease, unspecified (CMS/HCC V24, CMS/HCC V28) documented in this encounter Additional Health Concerns Infection Onset Date Last Indicated Resolved Time Tuberculosis Rule-Out 04/03/2025 04/03/20252024 3:00 PM EDT Respiratory Rule-Out 07/06/2025 07/06/2025 08/09/2 025 4:37 AM EDT COVID-19 Rule-Out 07/06/2025 07/06/2025 07/06/2025 4:37 AM EDT documented as of this encounter Care Teams Finished Yarn Examiner Relationship Specialty Start Date End Date Kinjal Barron FNP [address] [place] [address] PCP - General Family Medicine 03/06/25 documented as of this encounter
--- OUTSIDE RECORDS SUMMARY | 2025-08-06 18:01 | XMS_ITS | Encounter Summary ---
Author Organization [facility] Address [address] [place] [address] Care Team Providers Care Epic Prelude Analyst Name Role Phone Kinjal Barron SUSPECT ARTIST Primary Care Provid er Encounter Details Date Type Department Care Team (Late st Contact Info) Description 10/19/2024 Lab Requisition [facility] - Main Lab 299 [facility] [place] [address] Janice Núñez MD [address] [place] [address] Chronic obstructive pulmonary disease, unspecified (CMS/HCC V24, [...] Description 08/08/2025 10:30 AM EDT Office Visit [facility] Hematology Oncology [address] [place] [address] Lashanda Mcgill, DO [address] [place] [address] 08/12/2025 10:00 AM EDT Appointment [facility] Infusion Center [address] [address] documented as of this encounter Procedures Procedure Name Priority Date/Time Associated Diagnosis Comments COMPLETE BLOOD COUNT Routine 10/22/2024 8:17 AM EST Chronic obstructive pulmonary disease, unspecified (CMS/HCC) BASIC METABOLIC PANEL Routine 10/22/2024 8:17 AM EST Chronic obstructive pulmonary disease, unspecified ([facility]/HCC) documented in this encounter Results * [...] mg/dL LAB CHEMISTRY METHOD 10/22/2024 4:26 PM EST [facility] eGFR 65 >=60 [...] t [facility] [address] [place] [address], [place] [phone] * (ABNORMAL) Complete blood count (10/22/2024 8:17 [...] LAB HEMETOLOGY METHOD 10/22/2024 12:22 PM EST [facility] MCH 27.6 27.0 [...] t [facility] [address] [place] [address], documented in this encounter Visit Diagnoses Diagnosis Chronic obstructive pulmonary disease, unspecified (CMS/HCC V24, CMS/HCC V28) documented in this encounter Additional Health Concerns Infection Onset Date Last Indicated Resolved Time Tuberculosis Rule-Out 04/03/2025 04/03/20252024 3:00 PM EDT Respiratory Rule-Out 07/06/2025 07/06/2025 025 4:37 AM EDT COVID-19 Rule-Out 07/06/2025 07/06/2025 07/06/2025 4:37 AM EDT documented as of this encounter Care Teams Epic Prelude Analyst Relationship Specialty Start Date End Date Kinjal Barron FNP [address] [place] [address] PCP - General Family Medicine 03/06/25 documented as of this encounter
--- OUTSIDE RECORDS SUMMARY | 2025-08-06 18:01 | XMS_ITS | Encounter Summary ---
Author Organization [facility] Address [address] [place] [address] Care Team Providers Care Trial Justice Name Role Phone Kinjal Barron TRANSPORTATION ECONOMICS TEACHER Primary Care Provid er Encounter Details Date Type Department Care Team (Late st Contact Info) Description 11/20/2024 Lab Requisition [facility] - Main Lab [address] [facility] [place] [address] Janice Núñez MD [address] [place] [address] Chronic obstructive pulmonary disease, unspecified (CMS/HCC V24, [...] [facility] [address] [place] [address] Lashanda Mcgill, DO [address] [place] [address] 08/12/2025 10:00 AM EDT Appointment [facility] Infusion Center [address] [address] documented as of this encounter Procedures Procedure Name Priority Date/Time Associated Diagnosis Comments COMPLETE BLOOD COUNT Routine 11/20/2024 6:24 AM EST Chronic obstructive pulmonary disease, unspecified (CMS/HCC) BASIC METABOLIC PANEL Routine 11/20/2024 6:24 AM EST Chronic obstructive pulmonary disease, unspecified ([facility]/HCC) documented in this encounter Results * (ABNORMAL) Basic metabolic panel (11/20/2024 6:24 AM EST) Sodium 134 133 - 145 mmol/L LAB CHEMISTRY METHOD 11/20/2024 10:56 AM [facility] Potassium 4.3 3.5 - 5.5 mmol/L LAB CHEMISTRY METHOD 11/20/2024 10:56 AM [facility] Chloride 87(L) 96 - 110 mmol/L LAB CHEMISTRY METHOD 11/20/2024 10:56 AM [facility] CO2 44(HH) 21 - 32 mmol/L LAB CHEMISTRY METHOD 11/20/2024 10:56 AM [facility] Anion Gap 3 3 - 11 LAB CHEMISTRY METHOD 11/20/2024 10:56 AM [facility] Glucose 83 70 - 100 mg/dL LAB CHEMISTRY METHOD 11/20/2024 10:56 AM [facility] BUN 17 5 - 25 mg/dL LAB CHEMISTRY METHOD 11/20/2024 10:56 AM [facility] Creatinine 0.95 0.50 - 1.10 mg/dL LAB CHEMISTRY METHOD 11/20/2024 10:56 AM EST [facility] eGFR 65 >=60 mL/min/1. 73m2 LAB CHEMISTRY METHOD 11/20/2024 10:56 AM [facility] Comment:Calculation based on the Chronic Kidney Disease Epidemiology Collaboration (CKD-EPI) equation refit without adjustment for race. BUN/Creatinine Ratio 17.9 LAB CHEMISTRY METHOD 11/20/2024 10:56 AM [facility] Calcium 9.2 8.5 - 10.5 mg/dL LAB CHEMISTRY METHOD 11/20/2024 10:56 AM [facility] Blood Venous blood specimen / Unknown Venipuncture / Unknown 11/20/2024 6:24 AM EST 11/20/2024 9:31 AM EST Janice Núñez MD LAB BLOOD ORDERABLES Final Resul t [facility] [address] [place] [address], [place] [phone] * (ABNORMAL) Complete blood count (11/20/2024 6:24 AM EST) WBC 8.4 4.8 - 10.8 K/mcL LAB HEMETOLOGY METHOD 11/20/2024 10:10 AM [facility] RBC 3.70(L) 3.80 - 4.80 M/mcL LAB HEMETOLOGY METHOD 11/20/2024 10:10 AM [facility] Hemoglobin 9.5(L) 11.5 - 16.0 g/dL LAB HEMETOLOGY METHOD 11/20/2024 10:10 AM [facility] Hematocrit 34.1(L) 35.0 - 47.0 % LAB HEMETOLOGY METHOD 11/20/2024 10:10 AM [facility] MCV 93.4 79.0 - 98.0 FL LAB HEMETOLOGY METHOD 11/20/2024 10:10 AM EST [facility] MCH 26.0(L) 27.0 - 32.0 pcg LAB HEMETOLOGY METHOD 11/20/2024 10:10 AM EST [facility] MCHC 27.9(L) 32.0 - 37.0 g/dL LAB HEMETOLOGY METHOD 11/20/2024 10:10 AM EST [facility] RDW 14.9 11.0 - 15.0 % LAB HEMETOLOGY METHOD 11/20/2024 10:10 AM EST [facility] Platelets 512(H) 130 - 400 K/mcL LAB HEMETOLOGY METHOD 11/20/2024 10:10 AM EST [facility] MPV 9.8 7.0 - 11.0 FL LAB HEMETOLOGY METHOD 11/20/2024 10:10 AM EST [facility] NRBC 0.0 <1.0 % LAB HEMETOLOGY METHOD 11/20/2024 10:10 AM EST [facility] NRBC Absolute 0.00 <0.10 K/mcL LAB HEMETOLOGY METHOD 11/20/2024 10:10 AM [facility] Blood Venous blood specimen / Unknown Venipuncture / Unknown 11/20/2024 6:24 AM EST 11/20/2024 9:31 AM EST us Janice Núñez MD LAB BLOOD ORDERABLES Final Resul t [facility] [address] [place] [address], documented in this encounter Visit Diagnoses Diagnosis Chronic obstructive pulmonary disease, unspecified (CMS/HCC V24, CMS/HCC V28) documented in this encounter Additional Health Concerns Infection Onset Date Last Indicated Resolved Time Tuberculosis Rule-Out 04/03/2025 04/03/20252024 3:00 PM EDT Respiratory Rule-Out 07/06/2025 07/06/2025 025 4:37 AM EDT COVID-19 Rule-Out 07/06/2025 07/06/2025 07/06/2025 4:37 AM EDT documented as of this encounter Care Teams Trial Justice Relationship Specialty Start Date End Date Kinjal Barron FNP [address] [place] [address] PCP - General Family Medicine 03/06/25 documented as of this encounter
--- OUTSIDE RECORDS SUMMARY | 2025-08-06 18:02 | XMS_ITS | Encounter Summary ---
Author Organization [facility] Address [address] [place] [address] Care Team Providers Care Construction And Maintenance Inspector Name Role Phone Kinjal Barron RIVERBOAT MASTER Primary Care Provid er Encounter Details Date Type Department Care Team (Late st Contact Info) Description 11/09/2024 Lab Requisition [facility] - Main Lab [address] [facility] [place] [address] Janice Núñez MD [address] [place] [address] Chronic obstructive pulmonary disease, unspecified (CMS/HCC V24, [...] Description 08/08/2025 10:30 AM EDT Office Visit [facility] Hematology Oncology [address] [place] [address] Lashanda Mcgill, DO [address] [place] [address] 08/12/2025 10:00 AM EDT Appointment [facility] Infusion Center [address] [address] documented as of this encounter Procedures Procedure Name Priority Date/Time Associated Diagnosis Comments COMPLETE BLOOD COUNT Routine 11/12/2024 8:41 AM EST Chronic obstructive pulmonary disease, unspecified (CMS/HCC) BASIC METABOLIC PANEL Routine 11/12/2024 8:41 AM EST Chronic obstructive pulmonary disease, unspecified ([facility]/HCC) documented in this encounter Results * (ABNORMAL) Basic metabolic panel (11/12/2024 8:41 AM EST) Sodium 141 133 - 145 mmol/L LAB CHEMISTRY METHOD 11/12/2024 4:30 PM [facility] Potassium 4.1 3.5 - 5.5 mmol/L LAB CHEMISTRY METHOD 11/12/2024 4:30 PM [facility] Chloride 92(L) 96 - 110 mmol/L LAB CHEMISTRY METHOD 11/12/2024 4:30 PM [facility] CO2 43(HH) 21 - 32 mmol/L LAB CHEMISTRY METHOD 11/12/2024 4:30 PM [facility] Anion Gap 6 3 - 11 LAB CHEMISTRY METHOD 11/12/2024 4:30 PM [facility] Glucose 90 70 - 100 mg/dL LAB CHEMISTRY METHOD 11/12/2024 4:30 PM [facility] BUN 11 5 - 25 mg/dL LAB CHEMISTRY METHOD 11/12/2024 4:30 PM [facility] Creatinine 0.98 0.50 - 1.10 mg/dL LAB CHEMISTRY METHOD 11/12/2024 4:30 PM EST [facility] eGFR 62 >=60 mL/min/1. 73m2 LAB CHEMISTRY METHOD 11/12/2024 4:30 PM EST [facility] Comment:Calculation based on the Chronic Kidney Disease Epidemiology Collaboration (CKD-EPI) equation refit without adjustment for race. BUN/Creatinine Ratio 11.2 LAB CHEMISTRY METHOD 11/12/2024 4:30 PM [facility] Calcium 9.3 8.5 - 10.5 mg/dL LAB CHEMISTRY METHOD 11/12/2024 4:30 PM [facility] Blood Venous blood specimen / Unknown Venipuncture / Unknown 11/12/2024 8:41 AM EST 11/12/2024 11:35 AM EST Janice Núñez MD LAB BLOOD ORDERABLES Final Resul t [facility] [address] [place] [address], [place] [phone] * (ABNORMAL) Complete blood count (11/12/2024 8:41 AM EST) WBC 6.1 4.8 - 10.8 K/mcL LAB HEMETOLOGY METHOD 11/12/2024 11:55 AM [facility] RBC 3.50(L) 3.80 - 4.80 M/mcL LAB HEMETOLOGY METHOD 11/12/2024 11:55 AM [facility] Hemoglobin 9.2(L) 11.5 - 16.0 g/dL LAB HEMETOLOGY METHOD 11/12/2024 11:55 AM [facility] Hematocrit 32.4(L) 35.0 - 47.0 % LAB HEMETOLOGY METHOD 11/12/2024 11:55 AM [facility] MCV 93.9 79.0 - 98.0 FL LAB HEMETOLOGY METHOD 11/12/2024 11:55 AM EST [facility] MCH 26.7(L) 27.0 - 32.0 pcg LAB HEMETOLOGY METHOD 11/12/2024 11:55 AM EST [facility] MCHC 28.4(L) 32.0 - 37.0 g/dL LAB HEMETOLOGY METHOD 11/12/2024 11:55 AM EST [facility] RDW 14.4 11.0 - 15.0 % LAB HEMETOLOGY METHOD 11/12/2024 11:55 AM EST [facility] Platelets 435(H) 130 - 400 K/mcL LAB HEMETOLOGY METHOD 11/12/2024 11:55 AM EST [facility] MPV 9.7 7.0 - 11.0 FL LAB HEMETOLOGY METHOD 11/12/2024 11:55 AM EST [facility] NRBC 0.0 <1.0 % LAB HEMETOLOGY METHOD 11/12/2024 11:55 AM EST [facility] NRBC Absolute 0.00 <0.10 K/mcL LAB HEMETOLOGY METHOD 11/12/2024 11:55 AM [facility] Blood Venous blood specimen / Unknown Venipuncture / Unknown 11/12/2024 8:41 AM EST 11/12/2024 11:35 AM EST us Janice Núñez MD LAB BLOOD ORDERABLES Final Resul t [facility] [address] [place] [address], documented in this encounter Visit Diagnoses Diagnosis Chronic obstructive pulmonary disease, unspecified (CMS/HCC V24, CMS/HCC V28) documented in this encounter Additional Health Concerns Infection Onset Date Last Indicated Resolved Time Tuberculosis Rule-Out 04/03/2025 04/03/20252024 3:00 PM EDT Respiratory Rule-Out 07/06/2025 07/06/2025 025 4:37 AM EDT COVID-19 Rule-Out 07/06/2025 07/06/2025 07/06/2025 4:37 AM EDT documented as of this encounter Care Teams Construction And Maintenance Inspector Relationship Specialty Start Date End Date Kinjal Barron FNP [address] [place] [address] PCP - General Family Medicine 03/06/25 documented as of this encounter
--- OUTSIDE RECORDS SUMMARY | 2025-08-06 18:02 | XMS_ITS | Clinical Summary ---
Author Organization [facility] Address [address] [place] [address] Care Team Providers Care Cellophane Casting Machine Repairer Name Role Phone Debra Ji MD Primary Care Provider [phone] Allergies Active Allergy Reactions Criticality Noted Date [...] 0 Active zoster vaccine live, PF, (ZOSTAVAX) 53255 UNT/0.65ML injection Inject 0.65 mL under the [...] age to complete this topic Care Teams Cellophane Casting Machine Repairer Relationship Specialty Start Date End Date Debra Ji MD PCP - General Internal Medicine 06/27/17
--- OUTSIDE RECORDS SUMMARY | 2025-08-06 18:02 | XMS_ITS | Clinical Summary ---
Author Organization [address] [facility] Address [address] [place] [address] Phone Care Team Providers Care Research Advisor Name Role Phone Kinjal BarronP Primary Care Provid er Allergies Active Allergy Reactions Criticality Noted Date Comments Codeine Other 06/08/2017 hyper Fluoxetine Hyperactive behavior 06/08/2017 Crazy Haloperidol Hives 06/08/2017 hyperactivity Medications calcium carbonate-vitamin D (Calcium 500 + D) 500 mg-5 mcg (200 unit) per tablet Take 1 tablet by mouth 2 (two) times a day. 08/08/20 24 Active incontinence pad, liner, disp pad Incontinence Supply Disposable (Disposable Liners) Misc Use 3 times a day as needed for incontinence.= 03/08/20 24 Active albuterol 2.5 mg /3 mL (0.083 %) nebulizer solution Take 3 mL (2.5 mg total) by nebulization every 4 (four) hours if needed. Active alendronate (FOSAMAX) 70 mg tablet Take 1 tablet (70 mg total) by mouth every 7 (seven) days. 03/13/20 24 Active ARIPiprazole (ABILIFY) 10 mg tablet Take 1 tablet (10 mg total) by mouth 1 (one) time each day. 03/13/20 24 Active cholecalciferol (VITAMIN D-3) 50 mcg (2,000 unit) capsule Take 1 capsule (2,000 Units total) by mouth 1 (one) time each day in the morning. 08/16/20 Active fluocinolone acetonide oiL 0.01 % drops Administer 4 drops into affected ear(s) every other day if needed (other). 07/23/20 Active fluticasone furoate-vilanteroL (Breo Ellipta) 200-25 mcg/dose inhaler INHALE 1 PUFF DIRECTED ONCE A DAY 03/19/20 Active gabapentin (NEURONTIN) 100 mg capsule Take 1 capsule (100 mg total) by mouth 3 (three) times a day. 08/16/20 Active lamoTRIgine (LaMICtal) 150 mg tablet Take 2 tablets (300 mg total) by mouth at bedtime. 08/02/20 Active lamoTRIgine (LaMICtal) 200 mg tablet Take 1 tablet (200 mg total) by mouth 1 (one) time each day in the morning. 07/19/20 Active mirtazapine (REMERON) 15 mg tablet Take 1 tablet (15 mg total) by mouth at bedtime. 08/16/20 Active montelukast (SINGULAIR) 10 mg tablet Take 1 tablet (10 mg total) by mouth 1 (one) time each day. 08/16/20 Active pantoprazole (PROTONIX) 40 mg EC tablet Take 1 tablet (40 mg total) by mouth 1 (one) time each day. 30 minutes before breakfast daily 04/18/20 Active salicylic acid (T/LYNN) 3 % shampoo Apply one drop every 24-48 hours as needed. 03/08/20 Active theophylline (MANDY-24) 300 mg 24 hr capsule Take 1 capsule (300 mg total) by mouth 2 (two) times a day. Active vilazodone (VIIBRYD) 40 mg tablet Take 1 tablet (40 mg total) by mouth 1 (one) time each day in the morning. 03/26/20 Active furosemide (LASIX) 40 mg tablet Take 1 tablet (40 mg total) by mouth 1 (one) time each day. 90 each 1 10/03/20 24 Active Additional Information Patient taking differently: 20 mgoral Daily, Reported on 05/14/2025 fluticasone propionate (FLONASE) 50 mcg/actuation nasal spray Administer 1 spray into each nostril 2 (two) times a day. Shake gently. Before first use, prime pump. After use, clean tip and replace cap. 16 g 3 10/03/20 24 Active metoprolol succinate (TOPROL-XL) 100 mg 24 hr tablet Take 1 tablet (100 mg total) by mouth 1 (one) time each day. Do not crush or chew. 30 each 11 10/03/20 24 025 Active albuterol HFA (PROAIR HFA ; PROVENTIL HFA ; VENTOLIN HFA) 90 mcg/actuation inhaler Inhale 2 puffs by mouth every 4 (four) hours if needed (cough). 17 g 3 10/03/20 24 Active loratadine (CLARITIN) 10 mg tablet Take 1 tablet (10 mg total) by mouth 1 (one) time each day. Active propylene glycol/peg 400/PF (SYSTANE, PF, OPHT) Administer into affected eye(s). Active ipratropium-albute roL (DUONEB) 0.5-2.5 mg/3 mL nebulizer solutionIndication s:Chronic obstructive pulmonary disease, unspecified COPD type (CMS/HCC V24, CMS/HCC V28),Chronic respiratory failure with hypercapnia (CMS/HCC V24, CMS/HCC V28) Take 3 mL by nebulization 2 (two) times a day if needed for wheezing. 360 mL 2 04/09/20 25 026 Active lidocaine-prilocai ne (EMLA) 2.5-2.5 % cream Apply to port site 1 hour prior to each time port is accessed 30 g 1 06/26/20 25 Active dexAMETHasone (DECADRON) 4 mg tabletIndications: Squamous cell carcinoma of left lung (CMS/HCC V24, CMS/HCC V28) Take 8 mg (two tablets) once daily, starting the day after treatment, for three days (days 2-4). Take in the morning with food. 30 tablet 1 06/26/20 25 Active apixaban (Eliquis) 5 mg tablet Take 1 tablet (5 mg total) by mouth 2 (two) times a day. 07/11/20 25 026 Active lactulose (Enulose) solution Take 15 mL (10 g total) by mouth 1 (one) time each day if needed (constipation). 450 mL 07/16/20 25 025 Active prochlorperazine (COMPAZINE) 10 mg tablet Take 1 tablet (10 mg total) by mouth every 6 (six) hours if needed for nausea. 60 tablet 3 07/18/20 25 025 Active docusate sodium (COLACE) 100 mg capsule Take 1 capsule (100 mg total) by mouth 2 (two) times a day. Active senna (SENOKOT) 8.6 mg tablet Take 1 tablet (8.6 mg total) by mouth 1 (one) time each day. Active hydrocortisone 2.5 % cream Apply topically 2 (two) times a day. 30 g 07/30/20 25 026 Active betamethasone, augmented, (DIPROLENE) 0.05 % ointment 07/27/20 24 025 azithromycin (ZITHROMAX) 250 mg tablet Take 1 tablet (250 mg total) by mouth 1 (one) time each day for 4 doses. 4 each 07/07/20 25 025 predniSONE (DELTASONE) 20 mg tablet Take 2 [...] each day for 3 days. 15 each 07/07/20 25 025 ondansetron ODT (ZOFRAN-ODT) 8 mg disintegrating tablet Dissolve 1 tablet (8 mg total) on top of the tongue every 8 (eight) hours if needed for nausea or vomiting for up to 7 days. 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 (CMS/[facility] V24, [facility] V28) 04/30/2025 Age-related osteoporosis wit h current pathological fracture of right femur with delayed healing 04/24/2025 Tachycardia 04/24/2025 Lung nodule 04/03/2025 Decreased hearing 01/09/2025 Urinary incontinence 01/09/2025 Seizure ([facility] V24, [facility] V28) 12/23/2024 Anemia 12/14/2024 Atopic dermatitis 10/06/2024 Cor pulmonale, acute ([facility] V24, [facility] V28) 10/06/2024 Acidosis 10/06/2024 Pneumonia 10/06/2024 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 09/21/2024 Overview (04/24/2025): IVAP Acute on chronic diastolic ( congestive) heart failure ([facility] V24, [facility] V28) 09/21/2024 Unspecified age-related cataract 09/21/2024 Unspecified atrial flutter ([facility] V24, [facility] V28) 09/21/2024 Congestive heart failure ([facility] V24, [facility] V 28) 08/23/2024 Post-traumatic stress disorder, unspecified 07/30 Somatic syndrome finding 08/23/2024 Pleuritic pain 11/23/2023 Primary localized osteoarthrosis of ankle and fo ot 09/08/2023 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 Date [...] isode depressed, mild or moderate severity, unspecified ([facility] V24, [facility] V28) 10/09/2017 Acute on chronic respiratory failure with hypoxemia ([facility] V24, [facility] V28) 08/02/2017 Overview (09/12/2024): Historical tracheostomy Other secondary pulmonary hy pertension ([facility] V24, [facility] V28) 08/02/2017 Pulmonary emphysema ([facility] V24, [facility] V28) 0 07/29/2017 Thrombocytosis 06/27/2017 Dependence on supplemental oxygen 06/15/2017 Bipolar disorder ([facility] V24, [facility] V28) 05/28 Gastroesophageal reflux disease without esophagi tis 06/08/2017 Insomnia 06/08/2017 Retinal hemorrhage 06/08/2017 Encounters Date Type Department Care Team Description 08/01/2025 10:25 AM EDT - 08/01/2025 11:59 PM EDT Hospital Encounter [facility] Radiation Oncology [address] [place] [phone] Squamous cell carcinoma of left lung ([facility] V24, [facility] V28) Discharge Disposition: Home or Self Care 07/30/2025 Telephone [facility] Hematology Oncology [address] [place] [phone] Lashanda Mcgill DO 07/22/2025 Telephone [facility] Radiation Oncology [address] [place] [phone] 07/19/2025 9:23 AM EDT - 07/19/2025 11:59 PM EDT Hospital Encounter [facility] Infusion Center [address] [place] [phone] Squamous cell carcinoma of left lung ([facility] V24, [facility] V28) (Primary Dx) Discharge Disposition: Home or Self Care 07/19/2025 Social Work [facility] Infusion Center [address] [phone] Tika Duarte LMSW 07/16/2025 2:45 PM EDT Office Visit [facility] Hematology Oncology [address] [place] [phone] Lashanda Mcgill DO Squamous cell carcinoma of left lung ([facility] V24, [facility] V28) (Primary Dx); Chronic respiratory failure with hypercapnia ([facility]/HCC V24, [facility] V28) 07/16/2025 1:52 PM EDT - 07/16/2025 11:59 PM EDT Hospital Encounter [facility] Radiation Oncology [address] [place] [phone] Idalia Zhou, DILMA Squamous cell carcinoma of left lung ([facility] V24, [facility] V28) (Primary Dx) Discharge Disposition: Home or Self Care 07/10/2025 Telephone [facility] Hematology Oncology [address] [place] [phone] Lashanda Mcgill DO 07/09/2025 12:11 PM EDT - 07/09/2025 11:59 PM EDT Hospital Encounter [facility] Interventional Radiology [address] [place] [phone] Squamous cell carcinoma of left lung ([facility] V24, [facility] V28) Discharge Disposition: Home or Self Care 07/05/2025 9:44 PM EDT - 07/07/2025 1:04 PM EDT Hospital Encounter [facility] Intermediate Care Unit [address] [place] [phone] Emani Olivarez MD Jones, Christopher, MD Bell, Alistair A, MD Shortness of breath (Primary Dx) Discharge Disposition: Home-Health Care c 06/27/2025 Telephone [facility] Hematology Oncology [address] [place] [phone] Martine Tovar MA 06/25/2025 11:45 AM EDT Office Visit [facility] Hematology Oncology [address] [place] [phone] Sallie Valdez PA Squamous cell carcinoma of left lung (CMS/HCC V24, CMS/HCC V28) (Primary Dx); Chronic respiratory failure with hypercapnia (CMS/HCC V24, CMS/HCC V28); Mild anemia 06/18/2025 10:50 AM EDT - 06/18/2025 11:59 PM EDT Hospital Encounter [facility] Radiation Oncology [address] [place] [phone] Idalia Zhou NP NSCLC of left lung (CMS/HCC V24, CMS/HCC V28) (Primary Dx) Discharge Disposition: Home or Self Care 06/18/2025 10:25 AM EDT - 06/18/2025 11:59 PM EDT Hospital Encounter [facility] Radiation Oncology [address] [place] [phone] Discharge Disposition: Home or Self Care 06/17/2025 10:50 AM EDT - 06/17/2025 11:59 PM EDT Hospital Encounter [facility] Radiation Oncology [address] [place] [phone] Saeid Miles MD NSCLC of left lung ([facility]/HCC V24, CMS/HCC V28) (Primary Dx) Discharge Disposition: Home or Self Care 06/17/2025 10:39 AM EDT - 06/17/2025 11:59 PM EDT Hospital Encounter [facility] Radiation Oncology [address] [place] [phone] Discharge Disposition: Home or Self Care 06/14/2025 10:45 AM EDT - 06/14/2025 11:59 PM EDT Hospital Encounter [facility] Radiation Oncology [address] [place] [phone] Discharge Disposition: Home or Self Care 06/13/2025 10:29 AM EDT - 06/13/2025 11:59 PM EDT Hospital Encounter [facility] Radiation Oncology [address] [place] [phone] Discharge Disposition: Home or Self Care 06/12/2025 10:41 AM EDT - 06/12/2025 11:59 PM EDT Hospital Encounter [facility] Radiation Oncology [address] [place] [phone] Discharge Disposition: Home or Self Care 06/11/2025 10:33 AM EDT - 06/11/2025 11:59 PM EDT Hospital Encounter [facility] Radiation Oncology [address] [place] [phone] Discharge Disposition: Home or Self Care 06/10/2025 10:50 AM EDT - 06/10/2025 11:59 PM EDT Hospital Encounter [facility] Radiation Oncology [address] [place] [phone] Saeid Miles MD NSCLC of left lung (CMS/HCC V24, CMS/HCC V28) (Primary Dx) Discharge Disposition: Home or Self Care 06/10/2025 10:44 AM EDT - 06/10/2025 11:59 PM EDT Hospital Encounter [facility] Radiation Oncology [address] [place] [phone] Discharge Disposition: Home or Self Care 06/07/2025 10:45 AM EDT - 06/07/2025 11:59 PM EDT Hospital Encounter [facility] Radiation Oncology [address] [place] [phone] Discharge Disposition: Home or Self Care 06/06/2025 10:26 AM EDT - 06/06/2025 11:59 PM EDT Hospital Encounter [facility] Radiation Oncology [address] [place] [phone] Discharge Disposition: Home or Self Care 06/05/2025 10:45 AM EDT - 06/05/2025 11:59 PM EDT Hospital Encounter [facility] Radiation Oncology [address] [place] [phone] Discharge Disposition: Home or Self Care 06/04/2025 10:45 AM EDT - 06/04/2025 11:59 PM EDT Hospital Encounter [facility] Radiation Oncology [address] [place] [phone] Discharge Disposition: Home or Self Care 06/03/2025 11:46 AM EDT - 06/03/2025 11:59 PM EDT Hospital Encounter [facility] Xray [address] [place] [phone] NSCLC of left lung (CMS/HCC V24, CMS/HCC V28) Discharge Disposition: Home or Self Care 06/03/2025 10:50 AM EDT - 06/03/2025 11:59 PM EDT Hospital Encounter [facility] Radiation Oncology [address] [place] [phone] Saeid Miles MD NSCLC of left lung ([facility]/HCC V24, [facility]/HCC V28) (Primary Dx) Discharge Disposition: Home or Self Care 06/03/2025 10:45 AM EDT - 06/03/2025 11:59 PM EDT Hospital Encounter [facility] Radiation Oncology [address] [place] [phone] Discharge Disposition: Home or Self Care 05/30/2025 10:39 AM EDT - 05/30/2025 11:59 PM EDT Hospital Encounter [facility] Radiation Oncology [address] [place] [phone] Discharge Disposition: Home or Self Care 05/28/2025 11:45 AM EDT - 05/28/2025 11:59 PM EDT Hospital Encounter [facility] Radiation Oncology [address] [place] [phone] Katya Barnes MD Discharge Disposition: Home or Self Care 05/28/2025 11:26 AM EDT - 05/28/2025 11:59 PM EDT Hospital Encounter [facility] Radiation Oncology [address] [place] [phone] Discharge Disposition: Home or Self Care 05/24/2025 10:30 AM EDT Office Visit [facility] Hematology Oncology [address] [place] [phone] Lashanda Mcgill DO Squamous cell carcinoma of left lung (CMS/HCC V24, CMS/HCC V28) (Primary Dx) 05/24/2025 8:07 AM EDT - 05/24/2025 11:59 PM EDT Hospital Encounter [facility] Radiation Oncology [address] [place] [phone] Discharge Disposition: Home or Self Care 05/23/2025 8:00 AM EDT - 05/23/2025 11:59 PM EDT Hospital Encounter [facility] Radiation Oncology [address] [place] [phone] Discharge Disposition: Home or Self Care 05/14/2025 1:46 PM EDT - 05/14/2025 11:59 PM EDT Hospital Encounter [facility] Radiation Oncology [address] [place] [phone] Katya Barnes MD NSCLC of left lung ([facility] V24, [facility] V28) Discharge Disposition: Home or Self Care 05/14/2025 1:01 PM EDT - 05/14/2025 11:59 PM EDT Hospital Encounter [facility] Radiation Oncology [address] [place] [phone] NSCLC of left lung (CMS/HCC V24, CMS/[facility] V28) (Primary Dx) Discharge Disposition: Home or Self Care 05/10/2025 Telephone [facility] Hematology Oncology [address] [place] [phone] Lashanda Mcgill, from Last 3 Months Immunizations Name Administration [...] Comments Depression 10/09/2017 DX:Depression Bipolar I disorder (CMS/HCC V24, [facility] V28) 06/10/2017 DX:Bipolar I disorder ([facility]) Chronic obstructive pulmonar y disease ([facility] V24, [facility] V28) 07/29/2017 DX:Chronic obstructive pulm onary disease ([facility]), will bipap Chronic respiratory failure with hypercapnia ([facility] V24, [facility] V28) 08/02/2017 DX:Chronic resp iratory failure with hypercapnia ([facility]), uses trelegy machine/ will bring dos Dependence [...] Arrhythmia Afib , hx Emphysema of lung ([facility] V 24, [facility] V28) per daughter HL (hearing loss) wears hearing aids Full dentures Lung cancer ([facility] V24, [facility] V28) 03/2025 Asthma 1111 Psychiatric illness Family [...] 2:03 PM EDT Oxygen Saturation 97% 07/19/2025 9:35 AM EDT C 3 LTS OF 02 Inhaled Oxygen Concentration - - Weight 87.1 kg (192 lb) 08/01/2025 10:0 0 AM EDT Height 154.9 cm (5' 1 ) 07/16/2025 2:03 PM EDT Body Mass Index 36.28 07/16/2025 2:03 PM EDT Plan of Treatment Upcoming Encounters Date Type Department Care Team (Late st Contact Info) Description 08/08/2025 10:30 AM EDT Office Visit [facility] Hematology Oncology [address] [place] [phone] Lashanda Mcgill, [address] [place] [address] 08/12/2025 10:00 AM EDT Appointment [facility] Infusion Center [address] [phone] Health Maintenance Due Date Last Done Comments DTaP,Tdap,and Td Vaccines (1 - Tdap) 1973 RSV Immunization Adult Patients (1 - Risk 60-74 years 1-dose series) 2014 Medicare Annual Wellness Visit 10/30/2022 Social Influencers of Health Screening 10/30/2022 Zoster Vaccines (2 of 2) 06/19/2024 04/24/2024 COVID-19 Vaccine ( season) 2025 04/30/2024, 04/24/2024, 04/07/2022, Additional history exists Influenza [...] this topic Medical Devices Implanted Type Area Wage Adjuster Device Identifier Shelf Expiration Date Model / Serial / Lot Port Pwr Isp Attach 6f Interm Galina - [id number] Implanted:Qty : 1 on 07/09/2025 by Jesica Henderson MD at [facility] Central/Per ipheral Catheters and Ports Right: Internal Jugular CR BARD PERIPHERAL VASCULAR [id number] 09/27/2025 [id number] / / [id number] Marker Roberto Mendezlock - Sna - [id number] Implanted:Qty : 1 on 04/03/2025 by Justine Wong MD at [facility] Imaging Implants Left: Lung [employer] [id number] 08/27/2028 [id number] / [id number] / [id number] Description:LEFT UPPER LOBE Procedures Procedure Name Priority [...] TUMOR PROFILING Routine 05/07/2025 8:58 AM EDT COLONOSCOPY Routine 04/27/2024 DEPRESSION SCREENING Routine 04/16/2024 [facility] SCREENING DIGITAL Routine 03/22/2024 8:50 AM EDT Encounter for screening mammogram for malignant neoplasm of breast [facility] DEXA AXIAL SKELETON Routine 03/22/2024 [...] is included. WBC 6.7 4.8 - 10.8 K/[facility] LAB HEMETOLOGY METHOD 07/16/2025 4:44 PM EDT [facility] LAB RBC 4.20 3.80 - 4.80 M/mcL LAB HEMETOLOGY METHOD 07/16/2025 4:44 PM EDT [facility] LAB Hemoglobin 11.8 11.5 - 16.0 g/dL LAB HEMETOLOGY METHOD 07/16/2025 4:44 PM [facility] LAB Hematocrit 39.8 35.0 - 47.0 % LAB HEMETOLOGY METHOD 07/16/2025 4:44 PM EDT [facility] LAB MCV 94.1 79.0 - 98.0 FL LAB HEMETOLOGY METHOD 07/16/2025 4:44 PM [facility] LAB MCH 27.9 27.0 - 32.0 pcg LAB HEMETOLOGY METHOD 07/16/2025 4:44 PM [facility] LAB MCHC 29.6(L) 32.0 - 37.0 g/dL LAB HEMETOLOGY METHOD 07/16/2025 4:44 PM [facility] RDW 15.9(H) 11.0 - 15.0 % LAB HEMETOLOGY METHOD 07/16/2025 4:44 PM [facility] Platelets 416(H) 130 - 400 K/mcL LAB HEMETOLOGY METHOD 07/16/2025 4:44 PM [facility] MPV 9.2 7.0 - 11.0 FL LAB [facility]ETOLOGY [facility] NRBC 0.0 <1.0 % [facility] NR[facility] Absolute 0.00 <0.10 K/mcL LAB HEMETOLOGY METHOD 07/16/2025 4:44 PM [facility] Neutrophils Relative 86.6 % LAB HEMETOLOGY METHOD 07/16/2025 4:44 PM EDT [facility] Lymphocytes Relative 5.1 % LAB HEMETOLOGY METHOD 07/16/2025 4:44 PM EDT [facility] Monocytes Relative 6.4 % LAB HEMETOLOGY METHOD 07/16/2025 4:44 PM [facility] Eosinophils Relative 0.3 % LAB HEMETOLOGY METHOD 07/16/2025 4:44 PM EDT [facility] LAB Basophils Relative 0.6 % LAB HEMETOLOGY METHOD 07/16/2025 4:44 PM [facility] Immature Granulocytes Relative 1.0 % LAB HEMETOLOGY METHOD 07/16/2025 4:44 PM [facility] Neutrophils Absolute 5.80 1.50 - 7.00 K/mcL LAB HEMETOLOGY METHOD 07/16/2025 4:44 PM [facility] Lymphocytes Absolute 0.34(L) 1.00 - 5.00 K/mcL LAB HEMETOLOGY METHOD 07/16/2025 4:44 PM [facility] Monocytes Absolute 0.43 0.20 - 1.00 K/mcL LAB HEMETOLOGY METHOD 07/16/2025 4:44 PM [facility] Eosinophils Absolute 0.02 0.00 - 0.50 K/mcL LAB HEMETOLOGY METHOD 07/16/2025 4:44 PM [facility] Basophils Absolute 0.04 0.00 - 0.20 K/mcL LAB HEMETOLOGY METHOD 07/16/2025 4:44 PM [facility] Immature Granulocytes Absolute 0.07(H) 0.00 - 0.03 K/mcL LAB HEMETOLOGY METHOD 07/16/2025 4:44 PM [facility] Blood Venous blood specimen / Unknown Venipuncture / Unknown 07/16/2025 3:54 PM EDT 07/16/2025 4:33 PM EDT Lashanda Jaffeuliffe DO LAB BLOOD ORDERABLES Final Result Performing Organization Address [facility]/ZIP Co de Phone Number [facility] [address] [place] [address], [place] [phone] * Magnesium (07/16/2025 3:54 PM EDT) Only the most recent of3 resultswithin the time period is included. [facility] Magnesium 2.2 1.9 - 2.6 mg/dL LAB CHEMISTRY METHOD 07/16/2025 5:07 PM EDT [facility] Blood Venous blood specimen / Unknown Venipuncture / Unknown 07/16/2025 3:54 PM EDT 07/16/2025 4:32 PM EDT Lashanda Jaffeuliffe LAB BLOOD ORDERABLES Final Result Performing Organization Address [facility] de Phone Number [facility] [address] [place] [address], [place] [phone] * (ABNORMAL) Comprehensive metabolic panel (07/16/2025 3:54 PM EDT) Only the most recent of3 resultswithin the time period is included. [facility] Sodium 138 133 - 145 mmol/L LAB CHEMISTRY METHOD 07/16/2025 5:32 PM EDT [facility] Potassium 4.2 3.5 - 5.5 mmol/L LAB CHEMISTRY METHOD 07/16/2025 5:32 PM EDT [facility] Chloride 96 96 - 110 mmol/L LAB CHEMISTRY METHOD 07/16/2025 5:32 PM EDT [facility] CO2 42(HH) 21 - 32 mmol/L LAB CHEMISTRY METHOD 07/16/2025 5:32 PM EDT [facility] Anion Gap 0(L) 3 - 11 LAB CHEMISTRY METHOD 07/16/2025 5:32 PM EDT [facility] Glucose 88 70 - 100 mg/dL LAB CHEMISTRY METHOD 07/16/2025 5:32 PM [facility] BUN 22 5 - 25 mg/dL LAB CHEMISTRY METHOD 07/16/2025 5:32 PM [facility] Creatinine 0.99 0.50 - 1.10 mg/dL LAB CHEMISTRY METHOD 07/16/2025 5:32 PM [facility] eGFR 61 >=60 mL/min/1. 73m2 LAB CHEMISTRY METHOD 07/16/2025 5:32 PM [facility] Comment:Calculation based on the Chronic Kidney Disease Epidemiology Collaboration (CKD-EPI) equation refit without adjustment for race. BUN/Creatinine Ratio 22.2 LAB CHEMISTRY METHOD 07/16/2025 5:32 PM [facility] Calcium 9.7 8.5 - 10.5 mg/dL LAB CHEMISTRY METHOD 07/16/2025 5:32 PM [facility] AST (SGOT) 20 10 - 42 unit/L LAB CHEMISTRY METHOD 07/16/2025 5:32 PM [facility] ALT (SGPT) 23 10 - 60 unit/L LAB CHEMISTRY METHOD 07/16/2025 5:32 PM [facility] Alkaline Phosphatase 81 42 - 121 unit/L LAB CHEMISTRY METHOD 07/16/2025 5:32 PM [facility] Total Protein 7.0 6.0 - 8.0 g/dL LAB CHEMISTRY METHOD 07/16/2025 5:32 PM [facility] Albumin 3.7 3.2 - 5.0 g/dL LAB CHEMISTRY METHOD 07/16/2025 5:32 PM [facility] Total Bilirubin 0.2 0.0 - 1.4 mg/dL LAB CHEMISTRY METHOD 07/16/2025 5:32 PM [facility] Blood Venous blood specimen / Unknown Venipuncture / Unknown 07/16/2025 3:54 PM EDT 07/16/2025 4:32 PM EDT Lashanda Jaffeuliffe DO LAB BLOOD ORDERABLES Final Result [facility] [address] [place] [address], [place] [phone] * IR Insert Tunneled CVAD w Subq [...] Signed Date: 07/09/2025 15:22 ET Workstation ID: [id number] Transcribed By: Self Edit Transcribed Date: 07/09/2025 [...] and placed within the pocket. An 8 Slovak peel-away sheath with a hemostatic valve placed [...] Signed Date: 07/09/2025 15:22 ET Workstation ID: [id number] Transcribed By: Self Edit Transcribed Date: 07/09/2025 15:21 ET Sallie TABARES IMG IR PROCEDURES Final Resul t * ECG-Annotated (07/08/2025) Provider Onbase MD ECG ORDERABLES Final Result * Lavender tube (07/07/2025 5:50 AM EDT) Extra Tube Hold for add-ons. 07/07/2025 8:01 AM EDT [facility] Comment:Auto resulted. Blood Venous blood specimen / Unknown Venipuncture / Unknown 07/07/2025 5:50 AM EDT 07/07/2025 6:28 AM EDT us Sathish Erwin MD LAB BLOOD ORDERABLES Final Re sult [facility] [address] [place] [address], * (ABNORMAL) Basic metabolic panel (07/07/2025 5:50 AM EDT) Only the most recent of2 resultswithin the time period is included. Sodium 140 133 - 145 mmol/L LAB CHEMISTRY METHOD 07/07/2025 7:34 AM [facility] Potassium 4.0 3.5 - 5.5 mmol/L LAB CHEMISTRY METHOD 07/07/2025 7:34 AM [facility] Chloride 92(L) 96 - 110 mmol/L LAB CHEMISTRY METHOD 07/07/2025 7:34 AM [facility] CO2 45(HH) 21 - 32 mmol/L LAB CHEMISTRY METHOD 07/07/2025 7:34 AM [facility] Anion Gap 3 3 - 11 LAB CHEMISTRY METHOD 07/07/2025 7:34 AM [facility] Glucose 88 70 - 100 mg/dL LAB CHEMISTRY METHOD 07/07/2025 7:34 AM [facility] BUN 14 5 - 25 mg/dL LAB CHEMISTRY METHOD 07/07/2025 7:34 AM [facility] Creatinine 0.86 0.50 - 1.10 mg/dL LAB CHEMISTRY METHOD 07/07/2025 7:34 AM [facility] eGFR 72 >=60 mL/min/1. 73m2 LAB CHEMISTRY METHOD 07/07/2025 7:34 AM [facility] Comment:Calculation based on the Chronic Kidney Disease Epidemiology Collaboration (CKD-EPI) equation refit without adjustment for race. BUN/Creatinine Ratio 16.3 LAB CHEMISTRY METHOD 07/07/2025 7:34 AM [facility] Calcium 8.3(L) 8.5 - 10.5 mg/dL LAB CHEMISTRY METHOD 07/07/2025 7:34 AM EDT [facility] Blood Venous blood specimen / Unknown Venipuncture / Unknown 07/07/2025 5:50 AM EDT 07/07/2025 6:24 AM EDT Sathish Erwin MD LAB BLOOD ORDERABLES Final Re sult [facility] [address] [place] [address], * Respiratory virus panel molecular study (07/06/2025 2:08 AM EDT) Adenovirus Detection by PCR Not Detected Not Detected LAB MICROBIOLOGY METHOD 07/06/2025 4:37 AM EDT [facility] Influenza A PCR Not Detected Not Detected LAB MICROBIOLOGY METHOD 07/06/2025 4:37 AM EDT [facility] Influenza B PCR Not Detected Not Detected LAB MICROBIOLOGY METHOD 07/06/2025 4:37 AM EDT [facility] Coronavirus 229E Not Detected Not Detected LAB MICROBIOLOGY METHOD 07/06/2025 4:37 AM EDT [facility] Coronavirus HKU1 Not Detected Not Detected LAB MICROBIOLOGY METHOD 07/06/2025 4:37 AM EDT [facility] Coronavirus OC43 Not Detected Not Detected LAB MICROBIOLOGY METHOD 07/06/2025 4:37 AM EDT [facility] Coronavirus NL63 Not Detected Not Detected LAB MICROBIOLOGY METHOD 07/06/2025 4:37 AM EDT [facility] Parainfluenza Virus 1 Not Detected Not Detected LAB MICROBIOLOGY METHOD 07/06/2025 4:37 AM EDT [facility] Parainfluenza Virus 2 Not Detected Not Detected LAB MICROBIOLOGY METHOD 07/06/2025 4:37 AM EDT [facility] Parainfluenza Virus 3 Not Detected Not Detected LAB MICROBIOLOGY METHOD 07/06/2025 4:37 AM EDT [facility] Parainfluenza Virus 4 Not Detected Not Detected LAB MICROBIOLOGY METHOD 07/06/2025 4:37 AM EDT [facility] RSV PCR Not Detected Not Detected LAB MICROBIOLOGY METHOD 07/06/2025 4:37 AM EDT [facility] Human Metapneumovirus A and B Not Detected Not Detected LAB MICROBIOLOGY METHOD 07/06/2025 4:37 AM EDT [facility] Rhinovirus/Entero virus Not Detected Not Detected LAB MICROBIOLOGY METHOD 07/06/2025 4:37 AM EDT [facility] Bordetella pertussis Not Detected Not Detected LAB MICROBIOLOGY METHOD 07/06/2025 4:37 AM EDT [facility] Bordetella parapertussis Not Detected Not Detected LAB MICROBIOLOGY METHOD 07/06/2025 4:37 AM EDT [facility] Mycoplasma pneumo by PCR Not Detected Not Detected LAB MICROBIOLOGY METHOD 07/06/2025 4:37 AM EDT [facility] Chlamydia pneumoniae Not Detected Not Detected LAB MICROBIOLOGY METHOD 07/06/2025 4:37 AM EDT [facility] SARS COV-2 Not Detected Not Detected LAB MICROBIOLOGY METHOD 07/06/2025 4:37 AM EDT [facility] Swab Nasopharyngeal structure / Unknown Non-blood Collection / Unknown 07/06/2025 2:08 AM EDT 07/06/2025 3:41 AM EDT [facility] - 07/06/2025 4:37 AM EDT Testing was performed using the [employer]prim[employer] Respiratory Pathogen PCR Assay. All results must [...] LAB MICROBIOLOGY - GENERAL ORDERABLES Final Result Performing Organization Address [facility]/ZIP Co de Phone Number [facility] [address] [place] [address], [place] [phone] * (ABNORMAL) Venous blood gas (07/06/2025 1:08 AM EDT) pH, Feliz 7.38 7.32 - 7.42 pH 07/06/2025 1:44 AM EDT [facility] pCO2, Feliz 85(HH) 41 - 51 mmHg 07/06/2025 1:44 AM EDT [facility] pO2, Feliz 41(H) 25 - 40 mmHg 07/06/2025 1:44 AM EDT [facility] HCO3, Venous 40.8(H) 22.0 - 26.0 mmol/L 07/06/2025 1:44 AM EDT [facility] O2 Sat, Feliz 73.4 % 07/06/2025 1:44 AM EDT [facility] Base Excess, Feliz 21.1(H) -2.0 - 2.0 mmol/L 07/06/2025 1:44 AM EDT [facility] Blood Venous blood specimen / Unknown Venipuncture / Unknown 07/06/2025 1:08 AM EDT 07/06/2025 1:19 AM EDT Emani Olivarez MD LAB BLOOD ORDERABLES Final Resul t [facility] [address] [place] [address], * CT Angio Chest wo and/or w [...] Signed Date: 07/06/2025 08:08 ET Workstation ID: [id number] Transcribed By: Self Edit Transcribed Date: 07/06/2025 [...] Signed Date: 07/06/2025 08:08 ET Workstation ID: [id number] Transcribed By: Self Edit Transcribed Date: 07/06/2025 08:03 ET Emani Olivarez MD IMG XR PROCEDURES Final Result * Troponin I high sensitivity (07/05/2025 11:35 PM EDT) Only the most recent of2 resultswithin the time period is included. [facility] High Sensitivity Troponin I 8 <=54 ng/L LAB CHEMISTRY METHOD 07/06/2025 12:37 AM EDT [facility] Blood Venous blood specimen / Unknown Venipuncture / Unknown 07/05/2025 11:35 PM EDT 07/06/2025 12:10 AM EDT Narrative [facility] - 07/06/2025 12:37 AM EDT High levels of biotin in samples may falsely decrease hsTroponin values. Use caution when interpreting hsTroponin results in patients taking biotin who exhibit renal impairment (eGFR <60) or in patients taking more than 20 mg/day of biotin. Emani Olivarez MD LAB BLOOD ORDERABLES Final Resul t Performing Organization Address City/[facility]/ZIP Co de Phone Number [facility] [address] [place] [address], [place] [phone] * (ABNORMAL) C-reactive protein (07/05/2025 9:58 PM EDT) [facility] C-Reactive Protein 0.87(H) <=0.50 mg/dL LAB CHEMISTRY METHOD 07/06/2025 2:37 AM EDT [facility] Blood Venous blood specimen / Unknown Venipuncture / Unknown 07/05/2025 9:58 PM EDT 07/05/2025 10:23 PM EDT Eitan Melchor MD LAB BLOOD ORDERABLES Final Result [facility] [address] [place] [address], [place] [phone] * B-type natriuretic peptide (07/05/2025 9:58 PM EDT) [facility] BNP 86 <=100 pcg/mL LAB CHEMISTRY METHOD 07/05/2025 11:13 PM EDT [facility] Blood Venous blood specimen / Unknown Venipuncture / Unknown 07/05/2025 9:58 PM EDT 07/05/2025 10:23 PM EDT us Emani Olivarez MD LAB BLOOD ORDERABLES Final Resul t Performing Organization Address City/[facility]/ZIP Co de Phone Number [facility] [address] [place] [address], [place] [phone] * Lipase (07/05/2025 9:58 PM EDT) [facility] Lipase 28 13 - 75 unit/L LAB CHEMISTRY METHOD 07/05/2025 11:07 PM EDT [facility] Blood Venous blood specimen / Unknown Venipuncture / Unknown 07/05/2025 9:58 PM EDT 07/05/2025 10:23 PM EDT us Emani Olivarez MD LAB BLOOD ORDERABLES Final Resul t Performing Organization Address [facility] Co de Phone Number [facility] [address] [place] [address], [place] [phone] * ECG 12 lead (07/05/2025 9:40 PM EDT) [facility] Ventricular Rate ECG 70 BPM GEMUSE Atrial Rate 70 BPM GEMUSE P-R Interval 130 ms GEMUSE QRS Duration 90 ms GEMUSE Q-T Interval 384 ms GEMUSE QTc 414 ms GEMUSE P Wave [place] 50 degrees GEMUSE R [place] 72 degrees GEMUSE T [place] 52 degrees GEMUSE ECG Interpretation Sinus rhythm with Premature atrial complexes When compared with ECG of 06-MAR-2025 11:59, Premature atrial complexes are now Present Confirmed by VERONICA REYNOLDS ([id number]) on 07/08/2025 12:08:31 AM GEMUSE 07/05/2025 9:40 PM EDT 07/08/2025 12:08 AM EDT Emani Olivarez MD ECG ORDERABLES Final Result [...] GY ORDERABLES Final Result Performing Organization Address City/[facility] Co de Phone Number [facility] RADIATION ONCOLOGY [...] RADIATION ONCOLOGY 06/11/2025 11:0 2 AM EDT us Physician Radiation Oncology RADIATION ONCSARA GY ORDERABLES [...] RADIATION ONCOLOGY 06/10/2025 11:0 6 AM EDT Physician Radiation Oncology [...] GY ORDERABLES Final Result Performing Organization Address City/[facility]/ZIP Co de Phone Number [facility] RADIATION [...] RADIATION ONCOLOGY 06/04/2025 10:5 9 AM EDT us Physician Radiation Oncology RADIATION [...] 4 AM EDT Physician Radiation Oncology RADIATION ONCOLO GY ORDERABLES Final Result Performing Organization Address City/[facility] Co de Phone Number [facility] RADIATION ONCOLOGY [...] ORDERABLES Final Result [facility] RADIATION ONCOLOGY * Molecular intelligence tumor profiling (05/07/2025 8:58 AM EDT) Tissue Lashanda Mcgill DO LAB MOLECULAR DIAGNOS TICS ORDERABLES Final Result * Colonoscopy (04/27/2024) Colonoscopy No Interpretation , Abstracted Anatomical Region Laterality Modality Other Historical Provider HEALTH MAINTENANCE Final Result * Depression Screening (04/16/2024) Depression Screening Abstracted Historical Provider HEALTH MAINTENANCE Final Result * [facility] SCREENING DIGITAL (03/22/2024 8:50 AM EDT) Anatomical Region Laterality Modality Mammography 03/21/2024 3:07 PM EDT Narrative 03/22/2024 8:50 AM EDT [facility] Diagnostic Imaging Department [address] [place] [id number] Patient: CHAVALATRELLDENISA Sahu D.O.B./Age/Sex: 1955 - 68 - F Unit#: [id number] Location/Status: SPDIMAM/REG CLI Mnemonic/Ordering Site: [facility] Ordering Physician: YANN MANZANARES Cornelius Screening Digital - 03/21/24 - Report Status:Signed EXAM: Cornelius Screening Digital EXAM DATE AND TIME: 03/21/2024 3:49 PM HISTORY: Screening. Left breast biopsy in 2016, pathology benign. COMPARISON: 02/16/23, 09/21/19, 09/18/18, 09/15/17 TECHNIQUE: Bilateral digital breast tomosynthesis was performed in the CC and MLO projections. Computer aided detection with iCAD [employer] 3D 3.1 was employed. TISSUE DENSITY: b. [...] MD Dic Date/Time: 03/22/24848 Sign date/Time: 03/22/24849 Procedure Note Erica Treadwell MD - 07/16/2024 [facility] Diagnostic Imaging Department [address] [place] [address] Patient: DENISA VERDUZCO /Age/Sex: 1955 - 68 - F Unit#: [id number] [facility]ing Site: [facility] Ordering Physician: YANN MANZANARES [facility] Screening Digital - 03/21/24 - Report Status:Signed EXAM: [facility] Screening Digital EXAM DATE AND TIME: 03/21/2024 3:49 PM HISTORY: Screening. Left breast biopsy in 2016, pathology benign. COMPARISON: 02/16/23, 09/21/19, 09/18/18, 09/15/17 TECHNIQUE: Bilateral digital breast tomosynthesis was performed in the CCand MLO projections. Computer aided detection with [employer] 3D 3.1was employed. TISSUE DENSITY: b. There [...] MD IMG BI PROCEDURES Final Result * CORNELIUS DEXA AXIAL SKELETON (03/22/2024 8:14 AM EDT) Anatomical Region Laterality Modality Mammography 03/21/2024 3:07 PM EDT Narrative 03/22/2024 8:14 AM EDT [facility] Diagnostic Imaging Department [address] [place] [address] Patient: DENISA VERDUZCO /Age/Sex: 1955 - 68 - F Unit#: [id number] Location/Status: [facility]/REG CLI Mnemonic/Ordering Site: [facility] Ordering Physician: YANN MANZANARES Cornelius Dexa Axial Skeleton - 03/21/24 - 1602 [...] probability of hip fracture of 7.1%. Code 34733 Dictating Physician: MILTON ORTEGA MD Electronically Signed by: MILTON ORTEGA MD Dic Date/Time: 03/22/24812 Sign date/Time: 03/22/24813 Procedure Note Milton Ortega MD - 07/16/2024 [facility] Diagnostic Imaging Department [address] [place] [id number] Patient: DAXDENISA Gray./Age/Sex: 1955 - 68 - F Unit#: [id number] Location/Status: [facility] CLI Mnemonic/[facility] Ordering Physician: YANN MANZANARES Cornelius Dexa Axial Skeleton - 03/21/24 - 1602 [...] density of the femurs bilaterally is 0.912 gm/fz2krqnb is 90% of that of young normals [...] probability of hip fracture of 7.1%. Code 83823 Dictating Physician: MILTON ORTEGA MD Electronically Signed by: MILTON ORTEGA MD Dic Date/Time: 03/22/24812 Sign date/Time: 03/22/[address] 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 Care Teams Research Advisor Relationship Specialty Start Date End Date Kinjal Barron FNP [address] [place] [phone] PCP - General Family Medicine 03/06/25
--- OUTSIDE RECORDS SUMMARY | 2025-08-06 18:02 | XMS_ITS ---
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 ([facility] V24, [facility] V28) 04/30/2025 Age-related osteoporosis wit h current pathological fracture of right femur with delayed healing 04/24/2025 Tachycardia 04/24/2025 Lung nodule 04/03/2025 Decreased hearing 01/09/2025 Urinary incontinence 01/09/2025 Seizure ([facility] V24, [facility] V28) 12/23/2024 Anemia 12/14/2024 Atopic dermatitis 10/06/2024 Cor pulmonale, acute ([facility] V24, [facility] V28) 10/06/2024 Acidosis 10/06/2024 Pneumonia 10/06/2024 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 09/21/2024 Overview (04/24/2025): IVAP Acute on chronic diastolic ( congestive) heart failure ([facility] V24, [facility] V28) 09/21/2024 Unspecified age-related cataract 09/21/2024 Unspecified atrial flutter ([facility] V24, [facility] V28) 09/21/2024 Congestive heart failure ([facility] V24, [facility] V 28) 08/23/2024 Post-traumatic stress disorder, unspecified 07/30 Somatic syndrome finding 08/23/2024 Pleuritic pain 11/23/2023 Primary localized osteoarthrosis of ankle and fo ot 09/08/2023 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 Lewy body dementia ([facility] V24, [facility] V28) 03/28/2023 Senile cataract 03/28/2023 Constipation 04/17/2022 Abnormal posture 04/16/2022 Difficulty walking 11/26/2021 Syncope and collapse 11/26/2021 Unsteadiness on feet 11/26/2021 Obese 07/26/2019 Essential (primary) hypertension 07/09/2019 Seasonal allergies 03/20/2019 RITA on CPAP 11/08/2017 Overview (09/12/2024): Life supply/cpap [facility] Polysomnogram Trilogy treatment [...] isode depressed, mild or moderate severity, unspecified ([facility] V24, [facility] V28) 10/09/2017 Acute on chronic respiratory failure with hypoxemia ([facility] V24, [facility] V28) 08/02/2017 Overview (09/12/2024): Historical tracheostomy Other secondary pulmonary hy pertension ([facility] V24, [facility] V28) 08/02/2017 Pulmonary emphysema ([facility] V24, [facility] V28) 0 07/29/2017 Thrombocytosis 06/27/2017 Dependence on supplemental oxygen 06/15/2017 Bipolar disorder ([facility] V24, [facility] V28) 05/28 Gastroesophageal reflux disease without esophagi tis 06/08/2017 Insomnia 06/08/2017 Retinal hemorrhage 06/08/2017 Current Oncology Plans PACLitaxel / CARBOplatin - Non-Small Cell Lung Cancer / Thymomas and Thymic Carcinomas* Plan Start Date:06/25/2025 Plan Provider:Lashanda Mcgill, Linked Problems 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
--- NOTE | 2025-08-06 21:32 | PHA.MEDREC ---
Addendum entered by Disha Saeed RPh 08/06/25 22:11: reviewed by pharmacist Original Note: Pharmacy Consult ? Medication Reconciliation Pharmacy has completed the medication reconciliation. Patient had a list of her medications with her. Patient states she is no longer taking Acetaminophen 1,000mg, Acetazolamide 125 mg, Vitamin D3 50 mcg, Doxycycline 100 mg, Hydrocortisone cream, and Potassium chlor 20 mEq. Patient confirmed Lamotrigine 250 Qpm and 200 mg QAM, Prednisone 10 mg daily, Alendronate 70 mg every Tuesday, last does was 08/04/25. Patient last had all her morning medications today.
[2025-08-07] VITALS (12 sets, daily range): BP systolic 108–144; BP diastolic 46–74; PULSE 69–94; RESP 15–24; TEMP 36.1–36.9; O2SAT 91–100; BMI 32.0
[2025-08-07] MEDS: 0.9 % Sodium Chloride Flush 3 ML SYRINGE IVFLUSH ×4 (00:30→22:13)
[2025-08-07 05:06] LABS: MANUAL DIFF FLAG NO
[2025-08-07 05:07] LABS: Hematocrit 30.5 % (37.0-47.0); Hemoglobin 9.6 g/dl (12.0-16.0); Imm Gran Abs Auto 0.04 X10*3/uL (0.00-0.03); Imm Gran Pct Auto 0.9 % (0.0-0.4); Lymphocytes Absolute Auto 0.4 X10*3/uL (1.2-4.9); Mean Corpuscular HGB Conc 31.5 g/dl (31.0-35.0); Mean Corpuscular Hemoglobin 28.4 pg (27.0-33.0); Mean Corpuscular Volume 90.2 fL (80.0-98.0); NRBC Abs Auto 0.000 X10*3/uL (0.0-0.012); NRBC Pct Auto 0.0 /100WBC (0.0-0.2); Platelet Count 256 X10*3/uL (160-400); Red Blood Count 3.38 X10*6/uL (4.20-5.50); White Blood Count 4.3 X10*3/uL (4.8-10.8)
[2025-08-07 05:49] LABS: Alanine Aminotransferase 12 U/L (0-31); Albumin Level 3.4 g/dL (3.5-5.0); Alkaline Phosphatase 80 U/L (39-117); Anion Gap 14 (12-20); Aspartate Amino Transferase 21 U/L (5-31); Blood Urea Nitrogen 21 mg/dL (9-16); Calcium 8.3 mg/dL (8.4-10.2); Carbon Dioxide 40 mmol/L (22-29); Chloride 93 mmol/L (96-108); Creatinine Clr Calc Pharmacy 69.4; Estimated Glomerular Filt Rate > 60; Potassium 3.1 mmol/L (3.3-5.1); Sodium 144 mmol/L (135-145); Total Protein 5.9 g/dL (6.5-8.0)
--- NOTE | 2025-08-07 06:29 | PM.IMHP ---
History of Present Illness Date of Service: 08/06/25 Chief Complaint: SOB 70-year-old female with a past medical history of HTN, HLD, COPD, chronic respiratory failure on 6 L of home oxygen, cor pulmonale, paroxysmal AFib on Eliquis, RITA on BiPAP at night, lung cancer on chemotherapy; presented to the hospital today with a chief complaint of shortness of breath. Patient reports that over the past 1 day she has been having increased shortness of breath and noted to have hypoxia subsequently came to the ER for further evaluation. Patient denies any cough and sputum production. Denies any chest pain or palpitations. Mentions she has been on chemotherapy. Denies nausea vomiting or diarrhea. Review of all other systems is negative except mentioned above ER course: Per ER team, patient presentation nodule short of breath; was on OxyMask; the OxyMask was removed patient desaturated to low 70s; placed on OxyMask; patient not in respiratory distress. Over the course patient was placed on her home BiPAP at nighttime. CT chest showed no evidence of PE. Concern for possible COPD. [facility] Medical History (Updated 08/07/25 @ 06:33 by Morgan Riley MD) Lung cancer Pulmonary nodule 1 cm or greater in diameter Lung mass RITA (obstructive sleep apnea) Cor pulmonale Rib fractures Pulmonary nodule Tubular adenoma of colon (~2006) Osteopenia (~2012) Bronchopneumonia Chest pain Chronic respiratory alkalosis ILD (interstitial lung disease) CO2 retention Acute on chronic respiratory failure with hypoxia and hypercapnia Bipolar depression Eczema Limb swelling Insomnia Bronchitis Vasomotor rhinitis COPD (chronic obstructive pulmonary disease) Chronic respiratory failure Fall Acute metabolic encephalopathy Acute and chronic respiratory failure with hypercapnia Family History Other Hypertension Surgical History History of carpal tunnel surgery (~2000) History of ventral hernia repair (~2003) History of left inguinal hernia repair (~1995) History of tracheostomy (~2016) History of cataract surgery (~2018) History of colonoscopy Social History Household Members: None Household Members Other:: long term Housing: Other Housing Other:: long term Are you a primary neonatal critical care nurse to a significant other at home: No Do you presently have visiting nurse or other home services: Yes (long term services) Alcohol intake: former Patient Tobacco Use Status: Former Tobacco user Tobacco use type: Cigarette Years Smoked: 20+ years Smoked in Last 30 Days: No e-Cigarette/Vaping Use: Never Used Second Hand Smoke Exposure: No Use of substances other than those prescribed or required for medical reasons: No Advance Directives: Yes Advance Directives on File: Yes Advance Directives Date on File: 11/30/21 Nutrition Risks: No Nutritional Risk service: No Current occupational status: disabled Meds Allergies Allergy/AdvReac Type Severity Reaction Status Date / Time fluoxetine Allergy Severe Irritable Verified 08/06/25 13:56 codeine (Codeine) Allergy Intermediate RESTLESS/RA Verified 08/06/25 13:56 SH haloperidol (Haldol) Allergy Intermediate Palpitation Verified 08/06/25 13:56 s Active Medications: Current Medications Acetaminophen (Acetaminophen 325 Mg Tablet) 650 mg PO Q6H PRN PRN Reason: Pain, Mild 1-3,fever,headache Albuterol/Ipratropium (Albuterol/Iprat 2.5/0.5mg 3 Ml Ampul.Neb) 3 ml INHALE Q4H PRN PRN Reason: Shortness of Breath/Wheezing Calcium Carbonate (Calcium Carbonate 750 Mg Tab.Chew) 750 mg PO Q4H PRN PRN Reason: Heartburn Magnesium Hydroxide (Milk Of Magnesia 30 Ml Oral.Susp) 30 ml PO DAILY PRN PRN Reason: Constipation Melatonin (Melatonin 3 Mg Tablet) 6 mg PO BEDTIME PRN PRN Reason: Insomnia Senna (Sennosides 8.6 Mg Tablet) 17.2 mg PO BEDTIME [facility] Last Admin: 08/06/25 22:12 Dose: Not Given Sodium Chloride (0.9 % Sodium Chloride Flush 3 Ml Syringe) 3 ml IVFLUSH QSHIFT [facility] Last Admin: 08/07/25 00:30 Dose: 3 ml Home Medications ?Medication ?Instructions ?Recorded ?Confirmed ?Last Taken ?Type alendronate 70 mg tablet (Fosamax) 70 mg PO DOMINGUEZ 02/09/21 08/06/25 08/04/25 History mirtazapine 15 mg tablet 15 mg PO BEDTIME 09/10/21 08/06/25 08/06/25 History sennosides 8.6 mg tablet (Senokot) 8.6 mg PO BEDTIME 09/10/21 08/06/25 08/05/25 History metoprolol succinate 50 mg 100 mg PO DAILY 11/18/21 08/06/25 08/06/25 History tablet,extended release 24 hr Oxygen Home Use 04/15/23 10/22/24 Unknown History nebulizers 04/15/23 10/22/24 Unknown History pantoprazole 40 mg tablet,delayed 40 mg PO DAILY@0630 06/21/24 08/06/25 08/06/25 History release docusate sodium 100 mg capsule 100 mg PO DAILY PRN Constipation 07/27/24 08/06/25 08/19/24 History aripiprazole 10 mg tablet 10 mg PO DAILY 08/20/24 08/06/25 08/06/25 History mineral oil 1 appl topical Q48H PRN eczema 08/20/24 08/06/25 Unknown History omega 0-mvt-fjx-fish oil 1,000 mg 1 cap PO BID 08/20/24 08/06/25 08/06/25 History (120 mg-180 mg) capsule (Fish Oil) apixaban 5 mg tablet (Eliquis) 5 mg PO BID 09/26/24 08/06/25 08/06/25 History gabapentin 100 mg capsule 100 mg PO BID 01/18/25 08/06/25 08/06/25 History ferrous gluconate 324 mg (38 mg 324 mg PO Q48H 07/25/25 08/06/25 08/06/25 History iron) tablet calcium carbonate (Oyster Shell 500 mg PO BID 08/06/25 08/06/25 Unknown History Calcium) cholecalciferol (vitamin D3) 25 25 mcg PO DAILY 08/06/25 08/06/25 Unknown History mcg (1,000 unit) tablet (Vitamin D3) fluticasone furoate 200 1 ea inhalation DAILY dyspnea 08/06/25 08/06/25 08/06/25 History mcg-vilanterol 25 mcg/dose inhalation powder (Breo Ellipta) furosemide 40 mg tablet 40 mg PO DAILY 08/06/25 08/06/25 08/06/25 History lactulose 10 gram/15 mL oral 15 ml PO DAILY PRN constipation 08/06/25 08/06/25 Unknown History solution (Enulose) lamotrigine 200 mg tablet 200 mg PO BID 08/06/25 08/06/25 08/06/25 History lamotrigine 25 mg tablet 50 mg PO BID 08/06/25 08/06/25 08/06/25 History prednisone 5 mg tablet 10 mg PO DAILY 08/06/25 08/06/25 08/06/25 History vilazodone 40 mg tablet 40 mg PO DAILY 08/06/25 08/06/25 08/06/25 History Physical Exam Vital Signs and Narrative: Vital Signs: Last Vital Signs Temp 97.9 F 08/07/25 04:06 Pulse 80 08/07/25 04:06 Resp 17 08/07/25 04:06 BP 115/61 08/07/25 04:06 Pulse Ox 96 08/07/25 04:06 O2 Del Method CPAP 08/07/25 04:06 O2 Flow Rate 6 08/07/25 04:06 Oxygen Flow Rate 6 08/06/25 13:53 BMI result Body Mass Index 35.9 Results Labs 08/07/25 04:31 08/07/25 04:31 Labs: Laboratory Results - last 24 hr 08/06/25 08/06/25 08/07/25 15:02 15:07 04:31 MCV 92.8 90.2 MCH 27.5 28.4 MCHC 29.6 L 31.5 RDW 16.1 H 16.3 H Plt Count 273 256 MPV 8.6 L 8.7 L Immature Gran % (Auto) 1.4 H 0.9 H Neut % (Auto) 90.3 H 74.8 H Lymph % (Auto) 4.7 L 9.7 L Sutter % (Auto) 3.2 13.9 H Eos % (Auto) 0.0 0.2 Baso % (Auto) 0.4 0.5 Lymph # (Auto) 0.2 L 0.4 L Sutter # (Auto) 0.2 0.6 Eos # (Auto) 0.0 0.0 Baso # (Auto) 0.0 0.0 Abs Immat Gran (auto) 0.07 H 0.04 H Absolute Neuts (auto) 4.6 3.2 Absolute Nucleated RBC 0.000 0.000 Nucleated RBC % (auto) 0.0 0.0 Smear Tech's Comments VERIFIED PT 13.1 H D INR 1.1 VBG pH 7.37 VBG pCO2 84 VBG pO2 76 VBG HCO3 49 H VBG O2 Saturation 93.0 VBG Base Excess 19.8 Anion Gap 13 14 Estim Creat Clear Calc 61.2 69.4 Estimated GFR > 60 > 60 Random Glucose 154 H 85 Calcium 9.2 8.3 L D Magnesium 1.7 Total Bilirubin 0.1 0.1 AST 29 21 ALT 19 12 Alkaline Phosphatase 109 80 B-Natriuretic Peptide 60 Total Protein 7.0 5.9 L Albumin 4.1 3.4 L COVID-19 (EUD) Negative COVID-19 Clin Com See Note Influenza Type A (MARY ALICE) Negative Influenza Type B (MARY ALICE) Negative Influenza A & B Note See Note Imaging Radiologist's Impressions: Impressions Chest X-Ray 08/06/25 14:15 IMPRESSION: No acute cardiopulmonary abnormality. Electronically signed by: Amandeep Murphy MD 08/06/2025 02:26 PM EDT RP Assessment and Plan (1) Acute on chronic hypoxic respiratory failure: Status: Acute Plan 70-year-old female with a past medical history of HTN, HLD, COPD, chronic respiratory failure on 6 L of home oxygen, cor pulmonale, paroxysmal AFib on Eliquis, RITA on BiPAP at night, lung cancer on chemotherapy; presented to the hospital today with a chief complaint of shortness of breath. Noted to be acutely hypoxic. Concern for possible COPD exacerbation. Acute hypoxic respiratory failure: Acute COPD exacerbation: Patient was as low as low 70s. Placed on OxyMask with improvement in oxygenation. Patient uses 6 L of oxygen at baseline and BiPAP at night. Continue nebulizations standing and p.r.n. Continue Solu-Medrol Azithromycin. Trending pulse oximetry when ready for discharge CHF: Continue home Lasix AFib: Continue home Eliquis Mood disorder: Continue home medications DVT prophylaxis: Patient on Eliquis Code status: Full code Quality Stroke Does the patient have a stroke diagnosis?: No VTE Prior VTE?: No VTE Risk Level:: Medical - moderate - high VTE Device Contraindication: Treatment Not Indicated VTE Drug Contraindication: N/A - Med Ordered
[2025-08-07] MEDS: Metoprolol Succinate ER 100 MG TAB.ER.24H PO (08:30)
[2025-08-07] MEDS: Ferrous Sulfate 324 MG TABLET.DR PO (08:31)
--- NOTE | 2025-08-07 08:37 | PC.NURSE ---
assumed care of pt at 0645. a&ox4. vss and up to date. pt transitioned to 6L via NC while eating breakfast. tolerated transition well. pt transitioned back to 6L via oxymask at this time. no apparent respiratory distress. no sob/wob noted. respirations even/unlabored. medication administered per provider order. pt pending bed assignment. plan of care ongoing. call marroquin placed within reach.
--- NOTE | 2025-08-07 13:04 | MHC.CM.PN ---
IMM 08/07/25, Pt. lives with her dtr, she has [employer] assistance from her dtr and another person, she does not know how many hrs. PCP is Kinjal Barron in [place]. She has home O2 and a ventilator from [facility]. Other DME: hosp. bed, chair lift, rollator. HCP is on file, she gave me a copy of an updated one that lists her dtr, Heather holloway, this has been uploaded to chart. Dtr to transport pt. home at [place]. DCP: home, resume [employer] services. CM to follow for DC needs.
--- NOTE | 2025-08-07 14:50 | HO.PM.IMPN ---
Subjective Subjective Date of Service: 08/07/25 Interval History: No acute issues overnight. Breathing somewhat improved Review of Systems Denies chest pain Admits shortness of breath that has essentially not changed since admission Denies nausea vomiting diarrhea Denies fever chills Physical Exam Vital Signs: Vital Signs: Last Vital Signs Temp 98 F 08/07/25 12:07 Pulse 70 08/07/25 12:07 Resp 15 08/07/25 12:07 BP 118/57 L 08/07/25 12:07 Pulse Ox 94 08/07/25 12:07 O2 Del Method Oxymask 08/07/25 12:07 O2 Flow Rate 6 08/07/25 12:07 Oxygen Flow Rate 6 08/06/25 13:53 BMI result Body Mass Index 35.9 Const: Other: Awake alert oriented x3 in no acute distress Resp: Other: Diminished at bases with scattered expiratory wheezes Cardio: Other: No S4; positive S1-S2; no S3 murmurs rubs or gallops GI: Other: Soft nontender nondistended normoactive bowel sounds Extrem: Other: No edema bilaterally Objective Data Active Medications Acetaminophen (Acetaminophen 325 Mg Tablet) 650 mg PO Q6H PRN PRN Reason: Pain, Mild 1-3,fever,headache Albuterol/Ipratropium (Albuterol/Iprat 2.5/0.5mg 3 Ml Ampul.Neb) 3 ml INHALE Q4H PRN PRN Reason: Shortness of Breath/Wheezing Apixaban (Apixaban 5 Mg Tablet) 5 mg PO BID [facility] Last Admin: 08/07/25 08:30 Dose: 5 mg Documented By: GABY Aripiprazole (Aripiprazole 10 Mg Tablet) 10 mg PO DAILY [facility] Last Admin: 08/07/25 08:30 Dose: 10 mg Documented By: GABY Azithromycin (Azithromycin 500 Mg Tablet) 500 mg PO Q24H [facility] Last Admin: 08/07/25 07:27 Dose: 500 mg Documented By: KEMAL Calcium Carbonate (Calcium Carbonate 750 Mg Tab.Chew) 750 mg PO Q4H PRN PRN Reason: Heartburn Docusate Sodium (Docusate Sodium 100 Mg Capsule) 100 mg PO DAILY PRN PRN Reason: Constipation Ferrous Sulfate (Ferrous Sulfate 324 Mg Tablet.Dr) 324 mg PO Q48H [facility] Last Admin: 08/07/25 08:31 Dose: 324 mg Documented By: GABY Furosemide (Furosemide 40 Mg Tablet) 40 mg PO DAILY [facility]; Protocol Last Admin: 08/07/25 08:30 Dose: 40 mg Documented By: GABY Gabapentin (Gabapentin 100 Mg Capsule) 100 mg PO BID [facility] Last Admin: 08/07/25 08:31 Dose: 100 mg Documented By: GABY Lamotrigine (Lamotrigine 100 Mg Tablet) 200 mg PO BID [facility] Last Admin: 08/07/25 08:31 Dose: 200 mg Documented By: GABY Lamotrigine (Lamotrigine 25 Mg Tablet) 50 mg PO BID [facility] Last Admin: 08/07/25 08:30 Dose: 50 mg Documented By: GABY Magnesium Hydroxide (Milk Of Magnesia 30 Ml Oral.Susp) 30 ml PO DAILY PRN PRN Reason: Constipation Melatonin (Melatonin 3 Mg Tablet) 6 mg PO BEDTIME PRN PRN Reason: Insomnia Methylprednisolone Sodium Succinate (Methylprednisolone Sod Succ 40 Mg/Ml Vial) 40 mg IVPUSH Q8H [facility] Last Admin: 08/07/25 07:27 Dose: 40 mg Documented By: KEMAL Metoprolol Succinate (Metoprolol Succinate Er 100 Mg Tab.Er.24h) 100 mg PO DAILY [facility]; Protocol Last Admin: 08/07/25 08:30 Dose: 100 mg Documented By: GABY Mirtazapine (Mirtazapine 15 Mg Tablet) 15 mg PO BEDTIME [facility] Montelukast Sodium (Montelukast Sodium 10 Mg Tablet) 10 mg PO BEDTIME [facility] Omeprazole (Omeprazole 20 Mg Capsule.) 20 mg PO DAILY@0630 [facility] Senna (Sennosides 8.6 Mg Tablet) 17.2 mg PO BEDTIME [facility] Last Admin: 08/06/25 22:12 Dose: Not Given Documented By: ES Non-Admin Reason: Patient Asleep Sodium Chloride (0.9 % Sodium Chloride Flush 3 Ml Syringe) 3 ml IVFLUSH QSHIFT [facility] Last Admin: 08/07/25 07:29 Dose: 3 ml Documented By: KEMAL Labs 08/07/25 04:31 08/07/25 04:31 Labs: Laboratory Results - last 24 hr 08/06/25 08/06/25 08/07/25 15:02 15:07 04:31 MCV 92.8 90.2 MCH 27.5 28.4 MCHC 29.6 L 31.5 RDW 16.1 H 16.3 H Plt Count 273 256 MPV 8.6 L 8.7 L Immature Gran % (Auto) 1.4 H 0.9 H Neut % (Auto) 90.3 H 74.8 H Lymph % (Auto) 4.7 L 9.7 L [place] % (Auto) 3.2 13.9 H Eos % (Auto) 0.0 0.2 Baso % (Auto) 0.4 0.5 Lymph # (Auto) 0.2 L 0.4 L [place] # (Auto) 0.2 0.6 Eos # (Auto) 0.0 0.0 Baso # (Auto) 0.0 0.0 Abs Immat Gran (auto) 0.07 H 0.04 H Absolute Neuts (auto) 4.6 3.2 Absolute Nucleated RBC 0.000 0.000 Nucleated RBC % (auto) 0.0 0.0 Smear Tech's Comments VERIFIED PT 13.1 H D INR 1.1 VBG pH 7.37 VBG pCO2 84 VBG pO2 76 VBG HCO3 49 H VBG O2 Saturation 93.0 VBG Base Excess 19.8 Anion Gap 13 14 Estim Creat Clear Calc 61.2 69.4 Estimated GFR > 60 > 60 Random Glucose 154 H 85 Calcium 9.2 8.3 L D Magnesium 1.7 Total Bilirubin 0.1 0.1 AST 29 21 ALT 19 12 Alkaline Phosphatase 109 80 B-Natriuretic Peptide 60 Total Protein 7.0 5.9 L Albumin 4.1 3.4 L COVID-19 (EDU) Negative COVID-19 Clin Com See Note Influenza Type A (MARY ALICE) Negative Influenza Type B (MARY ALICE) Negative Influenza A & B Note See Note Assessment and Plan (1) Acute and chronic respiratory failure: Status: Acute (2) Acute on chronic hypoxic respiratory failure: Status: Acute Plan 70-year-old female with a past medical history of HTN, HLD, COPD, chronic respiratory failure on 6 L of home oxygen, cor pulmonale, paroxysmal AFib on Eliquis, RITA on BiPAP at night, lung cancer on chemotherapy; presented to the hospital today with a chief complaint of shortness of breath. Noted to be acutely hypoxic. Concern for possible COPD exacerbation. 1.Acute hypoxic respiratory failure/acute COPD exacerbation -pulse dose methylprednisolone q.6 hours -DuoNebs q.4 hours PRN -titrate oxygen to maintain sats greater than 92% -azithromycin (2) 2.CHF -stable and well compensated -continue current therapies 3.AFib -acceptable control on current therapies -continue Eliquis DVT prophylaxis: Patient on Eliquis Code status: Full code Quality Stroke Does the patient have a stroke diagnosis?: No VTE Prior VTE?: No VTE Risk Level:: Medical - moderate - high VTE Device Contraindication: Treatment Not Indicated VTE Drug Contraindication: N/A - Med Ordered
--- NOTE | 2025-08-07 15:23 | MHC.EDTECH ---
pt ambulated to hospital bed independently, call marroquin within reach
--- NOTE | 2025-08-07 15:44 | PC.NURSE ---
pt transitioned back to baseline 3L via oxymask at this time as pt continuously maintains SPO2 > 92%. no apparent respiratory distress noted. no sob/wob noted. respirations even/unlabored. all other vss and up to date. nsr on the marketing developer. resting comfortably in hospital bed. pending bed assignment. plan of care ongoing. call marroquin placed within reach.
--- NOTE | 2025-08-07 15:49 | PC.NURSE ---
Pt's daughter at bedside. Pt placed home Bipap on @6L. VSS. NAD. Pending bed assignment
[2025-08-07] MEDS: Albuterol/Iprat 2.5/0.5MG 3 ML AMPUL.NEB INHALE (20:56)
[2025-08-08] VITALS (10 sets, daily range): BP systolic 119–144; BP diastolic 54–72; PULSE 20–75; RESP 12–20; TEMP 36.3–36.8; O2SAT 85–99
--- NOTE | 2025-08-08 08:03 | P.CDIM_ITS ---
PROVIDER RESPONSE TEXT: To clarify, the appropriate diagnosis supported by the clinical indicators: Other (explain): CHF not a factor in this admission QUERY TEXT: PHYSICIAN'S DOCUMENTATION REQUEST Date of Query: 08/08/2025 07:26 AM EDT Patient Name: Lluvia Cartagena Admit Date: 08/06/2025 Dear Raul Higgins DO, A review of the medical record indicates additional documentation may be needed. Please review below and update the documentation accordingly. Clinical Indicators: Progress note 08/07/2025 - CHF BNP 60 IV Lasix Home medication: Furosemide History of Echo performed. Please provide further specificity regarding the most likely type and acuity of CHF you are evaluating, treating, or monitoring. Systolic Please specify if Acute, Chronic, or Acute on chronic, or Unable to determine Diastolic Please specify if Acute, Chronic, or Acute on chronic, or Unable to determine Combined Systolic/Diastolic Please specify if Acute, Chronic, or Acute on chronic, or Unable to determine Other (explain) Clinically unable to determine (explain) Thank you, Angela Sen, CCS, CDIS Use of terms such as suspected, likely, concern for, or probable (associated with a specific diagnosis that is being evaluated, monitored, or treated as if it exists) are acceptable and can be coded in the inpatient setting, when documented at the time of discharge. Please use your independent medical judgment in providing your response. THIS QUERY IS PART OF THE PERMANENT MEDICAL RECORD
[2025-08-08 08:20] LABS: VBG HCO3 52 mmol/L (22-26); VBG O2 % Saturation 52.0 %
[2025-08-08 08:20] LABS: Venous Blood Gas Refer to POC result
[2025-08-08] MEDS: 0.9 % Sodium Chloride Flush 3 ML SYRINGE IVFLUSH ×3 (10:15→19:48)
[2025-08-08] MEDS: Calcium Oyster Shell Elemental 500 MG TABLET PO ×2 (10:17→19:47)
[2025-08-08] MEDS: Metoprolol Succinate ER 100 MG TAB.ER.24H PO (10:17)
[2025-08-08] MEDS: Fluticasone/Vilanterol 200/25 BLST.W.DEV 1 PUFF INHALE (10:40)
[2025-08-08] MEDS: Albuterol/Iprat 2.5/0.5MG 3 ML AMPUL.NEB INHALE ×3 (10:40→20:01)
--- NOTE | 2025-08-08 14:50 | P.PNIM_ITS ---
Subjective Subjective Date of Service: 08/08/25 Interval History: Minimal improvement overnight and respiratory status. Utilize and BiPAP overnight Review of Systems Denies chest pain Admits shortness of breath that has essentially not changed since admission Denies nausea vomiting diarrhea Denies fever chills Physical Exam 2 Vital Signs: Vital Signs: Last Vital Signs Temp 97.4 F 08/08/25 11:20 Pulse 70 08/08/25 11:20 Resp 20 08/08/25 11:20 BP 125/54 L 08/08/25 11:20 Pulse Ox 92 08/08/25 11:20 O2 Del Method BiPAP 08/08/25 11:20 O2 Flow Rate 6 08/08/25 08:00 Oxygen Flow Rate 6 08/06/25 13:53 BMI result Body Mass Index 32.0 Const: Other: Awake alert oriented x3 in no acute distress Resp: Other: Diminished at bases with scattered expiratory wheezes Cardio: Other: No S4; positive S1-S2; no S3 murmurs rubs or gallops GI: Other: Soft nontender nondistended normoactive bowel sounds Extrem: Other: No edema bilaterally Objective Data Active Medications Acetaminophen (Acetaminophen 325 Mg Tablet) 650 mg PO Q6H PRN PRN Reason: Pain, Mild 1-3,fever,headache Last Admin: 08/08/25 10:19 Dose: 650 mg Documented By: ARIANA Albuterol/Ipratropium (Albuterol/Iprat 2.5/0.5mg 3 Ml Ampul.Neb) 3 ml INHALE RQ4H WHILE AWAKE [facility] Last Admin: 08/08/25 10:40 Dose: 3 ml Documented By: AUDIE Apixaban (Apixaban 5 Mg Tablet) 5 mg PO BID [facility] Last Admin: 08/08/25 10:16 Dose: 5 mg Documented By: ARIANA Aripiprazole (Aripiprazole 10 Mg Tablet) 10 mg PO DAILY [facility] Last Admin: 08/08/25 10:16 Dose: 10 mg Documented By: ARIANA Azithromycin (Azithromycin 500 Mg Tablet) 500 mg PO Q24H [facility] Last Admin: 08/08/25 06:04 Dose: 500 mg Documented By: ROJAS Calcium Carbonate (Calcium Carbonate 750 Mg Tab.Chew) 750 mg PO Q4H PRN PRN Reason: Heartburn Calcium Carbonate (Calcium Oyster Shell Elemental 500 Mg Tablet) 500 mg PO BID [facility] Last Admin: 08/08/25 10:17 Dose: 500 mg Documented By: ARIANA Docusate Sodium (Docusate Sodium 100 Mg Capsule) 100 mg PO DAILY PRN PRN Reason: Constipation Ferrous Sulfate (Ferrous Sulfate 324 Mg Tablet.Dr) 324 mg PO Q48H [facility] Last Admin: 08/07/25 08:31 Dose: 324 mg Documented By: GABY Fluticasone/Vilanterol (Fluticasone/Vilanterol 200/25 Blst.W.Dev) 1 puff INHALE RDAILY [facility] Last Admin: 08/08/25 10:40 Dose: 1 puff Documented By: AUDIE Furosemide (Furosemide 40 Mg Tablet) 40 mg PO DAILY [facility]; Protocol Last Admin: 08/08/25 10:16 Dose: 40 mg Documented By: ARIANA Gabapentin (Gabapentin 100 Mg Capsule) 100 mg PO BID [facility] Last Admin: 08/08/25 10:16 Dose: 100 mg Documented By: ARIANA Lactulose (Lactulose 20 Gm/30 Ml Solution) 10 gm PO DAILY PRN PRN Reason: Constipation Lamotrigine (Lamotrigine 100 Mg Tablet) 200 mg PO BID [facility] Last Admin: 08/08/25 10:16 Dose: 200 mg Documented By: ARIANA Lamotrigine (Lamotrigine 25 Mg Tablet) 50 mg PO BID [facility] Last Admin: 08/08/25 10:16 Dose: 50 mg Documented By: ARIANA Loratadine (Loratadine 10 Mg Tablet) 10 mg PO DAILY [facility] Last Admin: 08/08/25 10:16 Dose: 10 mg Documented By: ARIANA Magnesium Hydroxide (Milk Of Magnesia 30 Ml Oral.Susp) 30 ml PO DAILY PRN PRN Reason: Constipation Melatonin (Melatonin 3 Mg Tablet) 6 mg PO BEDTIME PRN PRN Reason: Insomnia Methylprednisolone Sodium Succinate (Methylprednisolone Sod Succ 40 Mg/Ml Vial) 40 mg IVPUSH Q8H [facility] Last Admin: 08/08/25 06:04 Dose: 40 mg Documented By: ROJAS Metoprolol Succinate (Metoprolol Succinate Er 100 Mg Tab.Er.24h) 100 mg PO DAILY [facility]; Protocol Last Admin: 08/08/25 10:17 Dose: 100 mg Documented By: ARIANA Mirtazapine (Mirtazapine 15 Mg Tablet) 15 mg PO BEDTIME [facility] Last Admin: 08/07/25 22:09 Dose: 15 mg Documented By: ROJAS Montelukast Sodium (Montelukast Sodium 10 Mg Tablet) 10 mg PO BEDTIME [facility] Last Admin: 08/07/25 22:10 Dose: 10 mg Documented By: ROJAS Omeprazole (Omeprazole 20 Mg Capsule.Dr) 20 mg PO DAILY@0630 [facility] Last Admin: 08/08/25 06:04 Dose: 20 mg Documented By: ROJAS Senna (Sennosides 8.6 Mg Tablet) 17.2 mg PO BEDTIME [facility] Last Admin: 08/07/25 22:09 Dose: 17.2 mg Documented By: ROJAS Sodium Chloride (0.9 % Sodium Chloride Flush 3 Ml Syringe) 3 ml IVFLUSH QSHIFT [facility] Last Admin: 08/08/25 10:15 Dose: 3 ml Documented By: ARIANA Vilazodone HCl (Vilazodone Hcl 40 Mg Tablet) 40 mg PO DAILY [facility] Last Admin: 08/08/25 10:16 Dose: 40 mg Documented By: ARIANA Labs 08/07/25 04:31 08/07/25 04:31 Labs: Laboratory Results - last 24 hr 08/08/25 08/08/25 07:55 08:03 Hold Purple Top SEE NOTE VBG pH 7.40 VBG pCO2 82 VBG pO2 38 VBG HCO3 52 H VBG O2 Saturation 52.0 VBG Base Excess 23.0 Assessment and Plan (1) Acute on chronic hypoxic respiratory failure: Status: Acute (2) COPD exacerbation: Status: Acute Plan 70-year-old female with a past medical history of HTN, HLD, COPD, chronic respiratory failure on 6 L of home oxygen, cor pulmonale, paroxysmal AFib on Eliquis, RITA on BiPAP at night, lung cancer on chemotherapy; presented to the hospital today with a chief complaint of shortness of breath. Noted to be acutely hypoxic. Concern for possible COPD exacerbation. 1.Acute hypoxic respiratory failure/acute COPD exacerbation -pulse dose methylprednisolone q.6 hours -DuoNebs q.4 hours PRN -titrate oxygen to maintain sats greater than 92% -azithromycin (3) 2.CHF -stable and well compensated -continue current therapies 3.AFib -acceptable control on current therapies -continue Eliquis DVT prophylaxis: Patient on Eliquis Code status: Full code Quality Stroke Does the patient have a stroke diagnosis?: No VTE Prior VTE?: No VTE Risk Level:: Medical - moderate - high VTE Device Contraindication: Treatment Not Indicated VTE Drug Contraindication: N/A - Med Ordered
[2025-08-09] VITALS (11 sets, daily range): BP systolic 113–169; BP diastolic 48–72; PULSE 62–83; RESP 12–19; TEMP 36.2–36.7; O2SAT 91–99
[2025-08-09] MEDS: Fluticasone/Vilanterol 200/25 BLST.W.DEV 1 PUFF INHALE (07:46)
[2025-08-09] MEDS: Albuterol/Iprat 2.5/0.5MG 3 ML AMPUL.NEB INHALE ×4 (07:46→20:49)
[2025-08-09 08:50] LABS: Hematocrit 36.4 % (37.0-47.0); Hemoglobin 11.1 g/dl (12.0-16.0); Mean Corpuscular HGB Conc 30.5 g/dl (31.0-35.0); Mean Corpuscular Hemoglobin 28.2 pg (27.0-33.0); Mean Corpuscular Volume 92.4 fL (80.0-98.0); NRBC Abs Auto 0.000 X10*3/uL (0.0-0.012); NRBC Pct Auto 0.0 /100WBC (0.0-0.2); Platelet Count 248 X10*3/uL (160-400); Red Blood Count 3.94 X10*6/uL (4.20-5.50); White Blood Count 5.4 X10*3/uL (4.8-10.8)
[2025-08-09 09:10] LABS: VBG HCO3 48 mmol/L (22-26); VBG O2 % Saturation 63.0 %
[2025-08-09 09:16] LABS: Venous Blood Gas Refer to POC result
[2025-08-09 09:18] LABS: B Type Natriuretic Peptide 283 pg/mL (<100)
[2025-08-09] MEDS: Calcium Oyster Shell Elemental 500 MG TABLET PO ×2 (09:22→21:14)
[2025-08-09] MEDS: Ferrous Sulfate 324 MG TABLET.DR PO (09:22)
[2025-08-09] MEDS: Metoprolol Succinate ER 100 MG TAB.ER.24H PO (09:22)
[2025-08-09 09:23] LABS: Anion Gap 14 (12-20); Blood Urea Nitrogen 19 mg/dL (9-16); Calcium 9.6 mg/dL (8.4-10.2); Carbon Dioxide 42 mmol/L (22-29); Chloride 90 mmol/L (96-108); Creatinine Clr Calc Pharmacy 66.3; Estimated Glomerular Filt Rate > 60; Potassium 4.4 mmol/L (3.3-5.1); Sodium 142 mmol/L (135-145)
[2025-08-09] MEDS: 0.9 % Sodium Chloride Flush 3 ML SYRINGE IVFLUSH ×3 (09:23→23:14)
[2025-08-09 09:36] LABS: Procalcitonin 0.03 ng/mL
--- NOTE | 2025-08-09 12:39 | PM.CNPUL ---
History of Present Illness History of Present Illness Consult date: 08/09/25 Chief complaint: hypoxia Narrative: This is an inpatient pulmonary consultation. The patient is a 70-year-old female with a past medical history of HTN, HLD, COPD, chronic respiratory failure on 6 L of home oxygen, cor pulmonale, paroxysmal AFib on Eliquis, RITA on BiPAP at night, lung cancer s/p XRT now on chemotherapy; presented to the hospital today with a chief complaint of shortness of breath. Patient reports that over the past 1 day she has been having increased shortness of breath and noted to have hypoxia subsequently came to the ER for further evaluation. Per ER team, patient presentation nodule short of breath; was on OxyMask; the OxyMask was removed patient desaturated to low 70s; placed on OxyMask; patient not in respiratory distress. Over the course patient was placed on her home BiPAP at nighttime. CT chest showed no evidence of PE. Concern for possible COPD. The patient did have a CT scan of the chest which I personally reviewed demonstrating some congested bases with some means increased interstitial markings likely affecting the gas exchange. She does have extensive emphysema. There is some other newer nodular densities but in view of the acute interstitial process difficult to differentiate. Therefore the patient was placed on Solu-Medrol was given additional diuresis. Seems to be doing a little bit better. She is tolerating the noninvasive ventilator at nighttime. Her blood gases reassuring with chronic hypercarbic respiratory failure. Review of Systems Constitutional: Constitutional: Denies fatigue and Denies weakness Eyes: Eyes: Denies change in vision ENT: Denies sore throat Cardiovascular: Cardiovascular: Denies chest pain, Reports dyspnea and Reports dyspnea on exertion Respiratory: Respiratory: Reports chest congestion, Reports cough, Denies pain on inspiration, Denies pain with cough, Reports dyspnea, Reports dyspnea on exertion and Reports wheezing Gastrointestinal: Gastrointestinal: Denies abdominal pain Musculoskeletal: Musculoskeletal: Reports abnormal gait and Reports muscle weakness Neurologic: Reports abnormal gait, Reports memory loss and Denies weakness Psychiatric: Psychiatric: Reports depression and Reports memory loss Endocrine: Endocrine: Denies fatigue Allergic/Immunologic: Allergic/Immunologic: Reports wheezing PMF Past Medical History Medical History Lung cancer Pulmonary nodule 1 cm or greater in diameter Lung mass RITA (obstructive sleep apnea) Cor pulmonale Rib fractures Pulmonary nodule Tubular adenoma of colon (~2006) Osteopenia (~2012) Bronchopneumonia Chest pain Chronic respiratory alkalosis ILD (interstitial lung disease) CO2 retention Acute on chronic respiratory failure with hypoxia and hypercapnia Bipolar depression Eczema Limb swelling Insomnia Bronchitis Vasomotor rhinitis COPD (chronic obstructive pulmonary disease) Chronic respiratory failure Fall Acute metabolic encephalopathy Acute and chronic respiratory failure with hypercapnia Family History Family History Other Hypertension Surgical History Surgical History History of carpal tunnel surgery (~2000) History of ventral hernia repair (~2003) History of left inguinal hernia repair (~1995) History of tracheostomy (~2016) History of cataract surgery (~2018) History of colonoscopy Social History Social History Household Members: Children Household Members Other:: Daughter, son-in-law, grandchildren Housing: House Housing Other:: long-term Are you a primary medicare coordinator to a significant other at home: No Do you presently have visiting nurse or other home services: Yes (everyday, 3.5hrs/day) Alcohol intake: former Patient Tobacco Use Status: Former Tobacco user Tobacco use type: Cigarette Years Smoked: 20+ years e-Cigarette/Vaping Use: Never Used Second Hand Smoke Exposure: No Advance Directives Date on File: 11/30/21 service: No Current occupational status: disabled Meds Allergies Allergy/AdvReac Type Severity Reaction Status Date / Time fluoxetine Allergy Severe Irritable Verified 08/06/25 13:56 codeine (Codeine) Allergy Intermediate RESTLESS/RA Verified 08/06/25 13:56 SH haloperidol (Haldol) Allergy Intermediate Palpitation Verified 08/06/25 13:56 s Active Medications: Current Medications Acetaminophen (Acetaminophen 325 Mg Tablet) 650 mg PO Q6H PRN PRN Reason: Pain, Mild 1-3,fever,headache Last Admin: 08/09/25 09:25 Dose: 650 mg Albuterol/Ipratropium (Albuterol/Iprat 2.5/0.5mg 3 Ml Ampul.Neb) 3 ml INHALE RQ4H WHILE AWAKE [facility] Last Admin: 08/09/25 11:35 Dose: 3 ml Apixaban (Apixaban 5 Mg Tablet) 5 mg PO BID [facility] Last Admin: 08/09/25 09:23 Dose: 5 mg Aripiprazole (Aripiprazole 10 Mg Tablet) 10 mg PO DAILY [facility] Last Admin: 08/09/25 09:22 Dose: 10 mg Azithromycin (Azithromycin 500 Mg Tablet) 500 mg PO Q24H [facility] Last Admin: 08/09/25 06:03 Dose: 500 mg Calcium Carbonate (Calcium Carbonate 750 Mg Tab.Chew) 750 mg PO Q4H PRN PRN Reason: Heartburn Calcium Carbonate (Calcium Oyster Shell Elemental 500 Mg Tablet) 500 mg PO BID [facility] Last Admin: 08/09/25 09:22 Dose: 500 mg Docusate Sodium (Docusate Sodium 100 Mg Capsule) 100 mg PO DAILY PRN PRN Reason: Constipation Ferrous Sulfate (Ferrous Sulfate 324 Mg Tablet.Dr) 324 mg PO Q48H [facility] Last Admin: 08/09/25 09:22 Dose: 324 mg Fluticasone/Vilanterol (Fluticasone/Vilanterol 200/25 Blst.W.Dev) 1 puff INHALE RDAILY [facility] Last Admin: 08/09/25 07:46 Dose: 1 puff Furosemide (Furosemide 40 Mg Tablet) 40 mg PO DAILY [facility]; Protocol Last Admin: 08/09/25 09:22 Dose: 40 mg Gabapentin (Gabapentin 100 Mg Capsule) 100 mg PO BID [facility] Last Admin: 08/09/25 09:22 Dose: 100 mg Lactulose (Lactulose 20 Gm/30 Ml Solution) 10 gm PO DAILY PRN PRN Reason: Constipation Lamotrigine (Lamotrigine 100 Mg Tablet) 200 mg PO BID [facility] Last Admin: 08/09/25 09:22 Dose: 200 mg Lamotrigine (Lamotrigine 25 Mg Tablet) 50 mg PO BID [facility] Last Admin: 08/09/25 09:22 Dose: 50 mg Loratadine (Loratadine 10 Mg Tablet) 10 mg PO DAILY [facility] Last Admin: 08/09/25 09:22 Dose: 10 mg Magnesium Hydroxide (Milk Of Magnesia 30 Ml Oral.Susp) 30 ml PO DAILY PRN PRN Reason: Constipation Melatonin (Melatonin 3 Mg Tablet) 6 mg PO BEDTIME PRN PRN Reason: Insomnia Methylprednisolone Sodium Succinate (Methylprednisolone Sod Succ 40 Mg/Ml Vial) 40 mg IVPUSH Q8H [facility] Last Admin: 08/09/25 06:03 Dose: 40 mg Metoprolol Succinate (Metoprolol Succinate Er 100 Mg Tab.Er.24h) 100 mg PO DAILY [facility]; Protocol Last Admin: 08/09/25 09:22 Dose: 100 mg Mirtazapine (Mirtazapine 15 Mg Tablet) 15 mg PO BEDTIME [facility] Last Admin: 08/08/25 19:48 Dose: 15 mg Montelukast Sodium (Montelukast Sodium 10 Mg Tablet) 10 mg PO BEDTIME [facility] Last Admin: 08/08/25 19:48 Dose: 10 mg Omeprazole (Omeprazole 20 Mg Capsule.Dr) 20 mg PO DAILY@0630 [facility] Last Admin: 08/09/25 06:03 Dose: 20 mg Senna (Sennosides 8.6 Mg Tablet) 17.2 mg PO BEDTIME [facility] Last Admin: 08/08/25 19:48 Dose: 17.2 mg Sodium Chloride (0.9 % Sodium Chloride Flush 3 Ml Syringe) 3 ml IVFLUSH QSHIFT [facility] Last Admin: 08/09/25 09:23 Dose: 3 ml Vilazodone HCl (Vilazodone Hcl 40 Mg Tablet) 40 mg PO DAILY [facility] Last Admin: 08/09/25 09:22 Dose: 40 mg Home Medications ?Medication ?Instructions ?Recorded ?Confirmed ?Last Taken ?Type alendronate 70 mg tablet (Fosamax) 70 mg PO DOMINGUEZ 02/09/21 08/06/25 08/04/25 History mirtazapine 15 mg tablet 15 mg PO BEDTIME 09/10/21 08/06/25 08/06/25 History sennosides 8.6 mg tablet (Senokot) 8.6 mg PO BEDTIME 09/10/21 08/06/25 08/05/25 History metoprolol succinate 50 mg 100 mg PO DAILY 11/18/21 08/06/25 08/06/25 History tablet,extended release 24 hr Oxygen Home Use 04/15/23 10/22/24 Unknown History nebulizers 04/15/23 10/22/24 Unknown History pantoprazole 40 mg tablet,delayed 40 mg PO DAILY@0630 06/21/24 08/06/25 08/06/25 History release docusate sodium 100 mg capsule 100 mg PO DAILY PRN Constipation 07/27/24 08/06/2524 History aripiprazole 10 mg tablet 10 mg PO DAILY 08/20/24 08/06/25 08/06/25 History mineral oil 1 appl topical Q48H PRN eczema 08/20/24 08/06/25 Unknown History omega [id number]-fish oil 1,000 mg 1 cap PO BID 08/20/24 08/06/25 08/06/25 History (120 mg-180 mg) capsule (Fish Oil) apixaban 5 mg tablet (Eliquis) 5 mg PO BID 09/26/24 08/06/25 08/06/25 History gabapentin 100 mg capsule 100 mg PO BID 01/18/25 08/06/25 08/06/25 History ferrous gluconate 324 mg (38 mg 324 mg PO Q48H 07/25/25 08/06/25 08/06/25 History iron) tablet calcium carbonate (Oyster Shell 500 mg PO BID 08/06/25 08/06/25 Unknown History Calcium) cholecalciferol (vitamin D3) 25 25 mcg PO DAILY 08/06/25 08/06/25 Unknown History mcg (1,000 unit) tablet (Vitamin D3) fluticasone furoate 200 1 ea inhalation DAILY dyspnea 08/06/25 08/06/25 08/06/25 History mcg-vilanterol 25 mcg/dose inhalation powder (Breo Ellipta) furosemide 40 mg tablet 40 mg PO DAILY 08/06/25 08/06/25 08/06/25 History lactulose 10 gram/15 mL oral 15 ml PO DAILY PRN constipation 08/06/25 08/06/25 Unknown History solution (Enulose) lamotrigine 200 mg tablet 200 mg PO BID 08/06/25 08/06/25 08/06/25 History lamotrigine 25 mg tablet 50 mg PO BID 08/06/25 08/06/25 08/06/25 History prednisone 5 mg tablet 10 mg PO DAILY 08/06/25 08/06/25 08/06/25 History vilazodone 40 mg tablet 40 mg PO DAILY 08/06/25 08/06/25 08/06/25 History Physical Exam Vital Signs: Vital Signs: Last Vital Signs Temp 98.0 F 08/09/25 11:32 Pulse 74 08/09/25 11:39 Resp 17 08/09/25 11:39 BP 126/55 L 08/09/25 11:32 Pulse Ox 94 08/09/25 11:32 O2 Del Method Oxymask 08/09/25 11:32 O2 Flow Rate 6 08/09/25 11:32 FiO2 60 08/08/25 23:27 Oxygen Flow Rate 6 08/06/25 13:53 BMI result Body Mass Index 32.0 Const: General: alert HEENT: Head: Yes normocephalic Neck: Neck: Yes normal visual inspection, Yes full ROM and Yes no lymphadenopathy Chest: Chest palpation & inspection: normal inspection of the chest Resp: Effort & Inspection: normal respiratory effort and prolonged expiratory phase Auscultation: rales and diminished lung sounds Cardio: Rate: regular rate Rhythm: regular rhythm Heart sounds: S1 normal heart sound present and S2 normal heart sound present GI: Palpation (GI): Soft to palpation and nontender Auscultation: normal bowel sounds Skin: General skin exam: rashes and/or lesions noted Results Laboratory Findings 08/09/25 08:36 08/09/25 08:36 ABG, PT/INR, D-dimer: PT/INR, D-dimer PT 13.1 SEC (10.9-12.4) H D 08/06/25 15:02 INR 1.1 (0.9-1.1) 08/06/25 15:02 Abnormal lab findings: Abnormal Labs 08/06/25 08/06/25 08/07/25 15:02 15:07 04:31 WBC 4.3 L RBC 4.00 L 3.38 L Hgb 11.0 L 9.6 L Hct 30.5 L MCHC 29.6 L RDW 16.1 H 16.3 H MPV 8.6 L 8.7 L Immature Gran % (Auto) 1.4 H 0.9 H Neut % (Auto) 90.3 H 74.8 H Lymph % (Auto) 4.7 L 9.7 L [place] % (Auto) 13.9 H Lymph # (Auto) 0.2 L 0.4 L Abs Immat Gran (auto) 0.07 H 0.04 H PT 13.1 H D VBG HCO3 49 H Sodium 146 H Potassium 3.1 L 3.1 L Chloride 94 L 93 L Carbon Dioxide 42 H* 40 H* BUN 24 H 21 H Random Glucose 154 H Calcium 8.3 L D B-Natriuretic Peptide Total Protein 5.9 L Albumin 3.4 L 08/08/25 08/09/25 08/09/25 08:03 08:36 08:52 WBC RBC 3.94 L Hgb 11.1 L Hct 36.4 L MCHC 30.5 L RDW 16.3 H MPV 8.9 L Immature Gran % (Auto) Neut % (Auto) Lymph % (Auto) [place] % (Auto) Lymph # (Auto) Abs Immat Gran (auto) PT VBG HCO3 52 H 48 H Sodium Potassium Chloride 90 L Carbon Dioxide 42 H* BUN 19 H Random Glucose 143 H Calcium B-Natriuretic Peptide 283 H Total Protein Albumin Assessment and Plan (1) Acute on chronic hypoxic respiratory failure: Status: Acute May have been a result of her recent chemotherapy initiation. At baseline the patient does have advanced respiratory disease and has no respiratory reserve. She did tolerate her radiation although she did have some radiation induced pneumonitis requiring steroids. (2) Chronic respiratory failure: Qualifiers: Respiratory failure complication: hypoxia and hypercapnia Qualified Code(s): J96.11 - Chronic respiratory failure with hypoxia; J96.12 - Chronic respiratory failure with hypercapnia Status: Acute (3) Lung cancer: Qualifiers: Laterality: left Lung location: unspecified part of lung Qualified Code(s): C34.92 - Malignant neoplasm of unspecified part of left bronchus or lung Status: Acute (4) Pulmonary nodule: Status: Acute Plan Continue Solu-Medrol Continue respiratory therapy Continue noninvasive ventilator Diuresis as tolerated Add Diamox Titrating oxygen to maintain a pulse ox above 88% Monitor blood work Procedures Date of Service Date of Service: 08/09/25
--- NOTE | 2025-08-09 14:05 | P.PNIM_ITS ---
Subjective Subjective Date of Service: 08/09/25 Interval History: dyspnea slow to improve Review of Systems Review of Systems: Yes all other systems are reviewed and are negative Physical Exam 2 Vital Signs: Vital Signs: Last Vital Signs Temp 98.0 F 08/09/25 11:32 Pulse 74 08/09/25 11:39 Resp 17 08/09/25 11:39 BP 126/55 L 08/09/25 11:32 Pulse Ox 94 08/09/25 11:32 O2 Del Method Oxymask 08/09/25 11:32 O2 Flow Rate 6 08/09/25 11:32 FiO2 60 08/08/25 23:27 Oxygen Flow Rate 6 08/06/25 13:53 BMI result Body Mass Index 32.0 Gen: in no acute distress HEENT: sclera anicteric, moist mucus membranes Neck: supple Lungs: diminished, prolonged expiration Heart: regular rate and rhythm, no murmurs Abd: soft, non-tender, non-distended Ext: no edema Skin: warm/well-perfused Neuro: alert and oriented x3, no focal findings Psych: appropriate affect Objective Data Active Medications Acetaminophen (Acetaminophen 325 Mg Tablet) 650 mg PO Q6H PRN PRN Reason: Pain, Mild 1-3,fever,headache Last Admin: 08/09/25 09:25 Dose: 650 mg Documented By: ARIANA Albuterol/Ipratropium (Albuterol/Iprat 2.5/0.5mg 3 Ml Ampul.Neb) 3 ml INHALE RQ4H WHILE AWAKE [facility] Last Admin: 08/09/25 11:35 Dose: 3 ml Documented By: EDWINA Apixaban (Apixaban 5 Mg Tablet) 5 mg PO BID [facility] Last Admin: 08/09/25 09:23 Dose: 5 mg Documented By: ARIANA Aripiprazole (Aripiprazole 10 Mg Tablet) 10 mg PO DAILY [facility] Last Admin: 08/09/25 09:22 Dose: 10 mg Documented By: ARIANA Azithromycin (Azithromycin 500 Mg Tablet) 500 mg PO Q24H [facility] Last Admin: 08/09/25 06:03 Dose: 500 mg Documented By: ROJAS Calcium Carbonate (Calcium Carbonate 750 Mg Tab.Chew) 750 mg PO Q4H PRN PRN Reason: Heartburn Calcium Carbonate (Calcium Oyster Shell Elemental 500 Mg Tablet) 500 mg PO BID [facility] Last Admin: 08/09/25 09:22 Dose: 500 mg Documented By: ARIANA Docusate Sodium (Docusate Sodium 100 Mg Capsule) 100 mg PO DAILY PRN PRN Reason: Constipation Ferrous Sulfate (Ferrous Sulfate 324 Mg Tablet.Dr) 324 mg PO Q48H [facility] Last Admin: 08/09/25 09:22 Dose: 324 mg Documented By: ARIANA Fluticasone/Vilanterol (Fluticasone/Vilanterol 200/25 Blst.W.Dev) 1 puff INHALE RDAILY [facility] Last Admin: 08/09/25 07:46 Dose: 1 puff Documented By: EDWINA Furosemide (Furosemide 40 Mg Tablet) 40 mg PO DAILY [facility]; Protocol Last Admin: 08/09/25 09:22 Dose: 40 mg Documented By: ARIANA Gabapentin (Gabapentin 100 Mg Capsule) 100 mg PO BID [facility] Last Admin: 08/09/25 09:22 Dose: 100 mg Documented By: ARIANA Lactulose (Lactulose 20 Gm/30 Ml Solution) 10 gm PO DAILY PRN PRN Reason: Constipation Lamotrigine (Lamotrigine 100 Mg Tablet) 200 mg PO BID [facility] Last Admin: 08/09/25 09:22 Dose: 200 mg Documented By: ARAINA Lamotrigine (Lamotrigine 25 Mg Tablet) 50 mg PO BID [facility] Last Admin: 08/09/25 09:22 Dose: 50 mg Documented By: ARIANA Loratadine (Loratadine 10 Mg Tablet) 10 mg PO DAILY [facility] Last Admin: 08/09/25 09:22 Dose: 10 mg Documented By: ARIANA Magnesium Hydroxide (Milk Of Magnesia 30 Ml Oral.Susp) 30 ml PO DAILY PRN PRN Reason: Constipation Melatonin (Melatonin 3 Mg Tablet) 6 mg PO BEDTIME PRN PRN Reason: Insomnia Methylprednisolone Sodium Succinate (Methylprednisolone Sod Succ 40 Mg/Ml Vial) 40 mg IVPUSH Q8H [facility] Last Admin: 08/09/25 06:03 Dose: 40 mg Documented By: ROJAS Metoprolol Succinate (Metoprolol Succinate Er 100 Mg Tab.Er.24h) 100 mg PO DAILY [facility]; Protocol Last Admin: 08/09/25 09:22 Dose: 100 mg Documented By: ARIANA Mirtazapine (Mirtazapine 15 Mg Tablet) 15 mg PO BEDTIME [facility] Last Admin: 08/08/25 19:48 Dose: 15 mg Documented By: ROJAS Montelukast Sodium (Montelukast Sodium 10 Mg Tablet) 10 mg PO BEDTIME [facility] Last Admin: 08/08/25 19:48 Dose: 10 mg Documented By: ROJAS Omeprazole (Omeprazole 20 Mg Capsule.Dr) 20 mg PO DAILY@0630 [facility] Last Admin: 08/09/25 06:03 Dose: 20 mg Documented By: ROJAS Senna (Sennosides 8.6 Mg Tablet) 17.2 mg PO BEDTIME [facility] Last Admin: 08/08/25 19:48 Dose: 17.2 mg Documented By: ROJAS Sodium Chloride (0.9 % Sodium Chloride Flush 3 Ml Syringe) 3 ml IVFLUSH QSHIFT [facility] Last Admin: 08/09/25 09:23 Dose: 3 ml Documented By: ARIANA Vilazodone HCl (Vilazodone Hcl 40 Mg Tablet) 40 mg PO DAILY [facility] Last Admin: 08/09/25 09:22 Dose: 40 mg Documented By: ARIANA Labs 08/09/25 08:36 08/09/25 08:36 Labs: Laboratory Results - last 24 hr 08/09/25 08/09/25 08:36 08:52 MCV 92.4 MCH 28.2 MCHC 30.5 L RDW 16.3 H Plt Count 248 MPV 8.9 L Absolute Nucleated RBC 0.000 Nucleated RBC % (auto) 0.0 VBG pH 7.36 VBG pCO2 84 VBG pO2 44 VBG HCO3 48 H VBG O2 Saturation 63.0 VBG Base Excess 18.7 Anion Gap 14 Estim Creat Clear Calc 66.3 Estimated GFR > 60 Random Glucose 143 H Calcium 9.6 D B-Natriuretic Peptide 283 H Procalcitonin 0.03 Assessment and Plan (1) Acute on chronic hypoxic respiratory failure: Status: Acute (2) COPD exacerbation: Status: Acute Plan d4, 70yo F with lung CA on chemotherapy, COPD, chronic hypoxic/hypercarbic resp failure on home O2 + Trilogy NIV, cor pulmonale, pAF on apixaban, HTN, HLD presenting with dyspnea and hypoxica and admitted for COPD exacerbation acute/chronic hypoxic/hypercarbic resp failure due to COPD exacerbation - methylprednisolone, bronchodilators, azithromycin, Breo - Pulm consulted, add acetazolamide - O2 6L via Oxymask, titrate to SaO2 88-92% - Triology at night pAF - continue apixaban lung CA - on chemotherapy, difficult to differentiate possible new lesions from acute infiltrate chronic HFpEF HTN - continue furosemide, metoprolol succinate mood disorder - continue lamotrigine, vilazodone, mirtazapine, aripiprazole VTE ppx - apixaban dispo - TBD; PT eval In my clinical judgment, the patient requires continued inpatient hospitalization for the following reasons: resp failure Total time managing care of this patient today: 35 minutes. Quality Stroke Does the patient have a stroke diagnosis?: No VTE Prior VTE?: No VTE Risk Level:: Medical - moderate - high VTE Device Contraindication: Treatment Not Indicated VTE Drug Contraindication: N/A - Med Ordered
--- NOTE | 2025-08-09 15:44 | MHC.CM.PN ---
EMR reviewed and per MD rounds, pt is not medically cleared for discharge due to management of COPD exacerbation.
[2025-08-10] VITALS (11 sets, daily range): BP systolic 113–133; BP diastolic 55–66; PULSE 58–88; RESP 16–20; TEMP 36.2–36.7; O2SAT 6–100
[2025-08-10 07:22] LABS: VBG HCO3 42 mmol/L (22-26); VBG O2 % Saturation 62.0 %
[2025-08-10 07:28] LABS: Venous Blood Gas Refer to POC result
[2025-08-10 07:31] LABS: Anion Gap 10 (12-20); Blood Urea Nitrogen 25 mg/dL (9-16); Calcium 9.4 mg/dL (8.4-10.2); Carbon Dioxide 39 mmol/L (22-29); Chloride 98 mmol/L (96-108); Creatinine Clr Calc Pharmacy 47.4; Estimated Glomerular Filt Rate 53; Potassium 4.3 mmol/L (3.3-5.1); Sodium 143 mmol/L (135-145)
[2025-08-10] MEDS: Albuterol/Iprat 2.5/0.5MG 3 ML AMPUL.NEB INHALE ×4 (08:30→19:00)
[2025-08-10] MEDS: Fluticasone/Vilanterol 200/25 BLST.W.DEV 1 PUFF INHALE (08:30)
[2025-08-10] MEDS: 0.9 % Sodium Chloride Flush 3 ML SYRINGE IVFLUSH ×3 (10:23→20:18)
[2025-08-10] MEDS: Calcium Oyster Shell Elemental 500 MG TABLET PO ×2 (10:23→20:16)
[2025-08-10] MEDS: Metoprolol Succinate ER 100 MG TAB.ER.24H PO (10:25)
--- NOTE | 2025-08-10 12:34 | P.PNIM_ITS ---
Subjective Subjective Date of Service: 08/10/25 Interval History: breathing slowly improving coughing Review of Systems Review of Systems: Yes all other systems are reviewed and are negative Physical Exam 2 Vital Signs: Vital Signs: Last Vital Signs Temp 97.1 F 08/10/25 11:24 Pulse 80 08/10/25 11:24 Resp 18 08/10/25 11:24 BP 116/61 08/10/25 11:24 Pulse Ox 100 08/10/25 11:24 O2 Del Method Nasal Cannula 08/10/25 11:24 O2 Flow Rate 5 08/10/25 11:24 FiO2 60 08/08/25 23:27 Oxygen Flow Rate 6 08/06/25 13:53 BMI result Body Mass Index 32.0 Gen: in no acute distress HEENT: sclera anicteric, moist mucus membranes Neck: supple Lungs: diminished, prolonged expiration Heart: regular rate and rhythm, no murmurs Abd: soft, non-tender, non-distended Ext: no edema Skin: warm/well-perfused Neuro: alert and oriented x3, no focal findings Psych: appropriate affect Objective Data Active Medications Acetaminophen (Acetaminophen 325 Mg Tablet) 650 mg PO Q6H PRN PRN Reason: Pain, Mild 1-3,fever,headache Last Admin: 08/10/25 05:46 Dose: 650 mg Documented By: MARGE Acetazolamide (Acetazolamide 250 Mg Tablet) 250 mg PO BID [facility] Last Admin: 08/10/25 10:23 Dose: 250 mg Documented By: JOSE RAMON Albuterol/Ipratropium (Albuterol/Iprat 2.5/0.5mg 3 Ml Ampul.Neb) 3 ml INHALE RQ4H WHILE AWAKE [facility] Last Admin: 08/10/25 11:20 Dose: 3 ml Documented By: DIPTI Apixaban (Apixaban 5 Mg Tablet) 5 mg PO BID [facility] Last Admin: 08/10/25 10:23 Dose: 5 mg Documented By: JOSE RAMON Aripiprazole (Aripiprazole 10 Mg Tablet) 10 mg PO DAILY [facility] Last Admin: 08/10/25 10:23 Dose: 10 mg Documented By: JOSE RAMON Azithromycin (Azithromycin 500 Mg Tablet) 500 mg PO Q24H [facility] Last Admin: 08/10/25 05:45 Dose: 500 mg Documented By: MARGE Calcium Carbonate (Calcium Carbonate 750 Mg Tab.Chew) 750 mg PO Q4H PRN PRN Reason: Heartburn Calcium Carbonate (Calcium Oyster Shell Elemental 500 Mg Tablet) 500 mg PO BID [facility] Last Admin: 08/10/25 10:23 Dose: 500 mg Documented By: JOSE RAMON Docusate Sodium (Docusate Sodium 100 Mg Capsule) 100 mg PO DAILY PRN PRN Reason: Constipation Ferrous Sulfate (Ferrous Sulfate 324 Mg Tablet.Dr) 324 mg PO Q48H [facility] Last Admin: 08/09/25 09:22 Dose: 324 mg Documented By: ARIANA Fluticasone/Vilanterol (Fluticasone/Vilanterol 200/25 Blst.W.Dev) 1 puff INHALE RDAILY [facility] Last Admin: 08/10/25 08:30 Dose: 1 puff Documented By: DIPTI Furosemide (Furosemide 40 Mg Tablet) 40 mg PO DAILY [facility]; Protocol Last Admin: 08/10/25 10:22 Dose: 40 mg Documented By: JOSE RAMON Gabapentin (Gabapentin 100 Mg Capsule) 100 mg PO BID [facility] Last Admin: 08/10/25 10:22 Dose: 100 mg Documented By: JOSE RAMON Lactulose (Lactulose 20 Gm/30 Ml Solution) 10 gm PO DAILY PRN PRN Reason: Constipation Lamotrigine (Lamotrigine 100 Mg Tablet) 200 mg PO BID [facility] Last Admin: 08/10/25 10:22 Dose: 200 mg Documented By: JOSE RAMON Lamotrigine (Lamotrigine 25 Mg Tablet) 50 mg PO BID [facility] Last Admin: 08/10/25 10:21 Dose: 50 mg Documented By: JOSE RAMON Loratadine (Loratadine 10 Mg Tablet) 10 mg PO DAILY [facility] Last Admin: 08/10/25 10:22 Dose: 10 mg Documented By: JOSE RAMON Magnesium Hydroxide (Milk Of Magnesia 30 Ml Oral.Susp) 30 ml PO DAILY PRN PRN Reason: Constipation Melatonin (Melatonin 3 Mg Tablet) 6 mg PO BEDTIME PRN PRN Reason: Insomnia Methylprednisolone Sodium Succinate (Methylprednisolone Sod Succ 40 Mg/Ml Vial) 40 mg IVPUSH Q8H [facility] Last Admin: 08/10/25 05:45 Dose: 40 mg Documented By: MARGE Metoprolol Succinate (Metoprolol Succinate Er 100 Mg Tab.Er.24h) 100 mg PO DAILY [facility]; Protocol Last Admin: 08/10/25 10:25 Dose: 100 mg Documented By: JOSE RAMON Mirtazapine (Mirtazapine 15 Mg Tablet) 15 mg PO BEDTIME [facility] Last Admin: 08/09/25 21:13 Dose: 15 mg Documented By: MARGE Montelukast Sodium (Montelukast Sodium 10 Mg Tablet) 10 mg PO BEDTIME [facility] Last Admin: 08/09/25 21:13 Dose: 10 mg Documented By: MARGE Omeprazole (Omeprazole 20 Mg Capsule.Dr) 20 mg PO DAILY@0630 [facility] Last Admin: 08/10/25 05:46 Dose: 20 mg Documented By: MARGE Senna (Sennosides 8.6 Mg Tablet) 17.2 mg PO BEDTIME [facility] Last Admin: 08/09/25 21:13 Dose: 17.2 mg Documented By: MARGE Sodium Chloride (0.9 % Sodium Chloride Flush 3 Ml Syringe) 3 ml IVFLUSH QSHIFT [facility] Last Admin: 08/10/25 10:23 Dose: 3 ml Documented By: JOSE RAMON Vilazodone HCl (Vilazodone Hcl 40 Mg Tablet) 40 mg PO DAILY [facility] Last Admin: 08/10/25 10:23 Dose: 40 mg Documented By: JOSE RAMON Labs 08/09/25 08:36 08/10/25 06:58 Labs: Laboratory Results - last 24 hr 08/10/25 08/10/25 08/10/25 06:53 06:58 07:08 Hold Purple Top SEE NOTE VBG pH 7.36 VBG pCO2 73 VBG pO2 43 VBG HCO3 42 H VBG O2 Saturation 62.0 VBG Base Excess 14.2 Anion Gap 10 L Estim Creat Clear Calc 47.4 Estimated GFR 53 Random Glucose 135 H Calcium 9.4 Assessment and Plan (1) Acute on chronic hypoxic respiratory failure: Status: Acute (2) COPD exacerbation: Status: Acute Plan d5, 70yo F with lung CA on chemotherapy, COPD, chronic hypoxic/hypercarbic resp failure on home O2 + Trilogy NIV, cor pulmonale, pAF on apixaban, HTN, HLD presenting with dyspnea and hypoxica and admitted for COPD exacerbation acute/chronic hypoxic/hypercarbic resp failure due to COPD exacerbation - methylprednisolone->prednisone taper, bronchodilators, azithromycin, Breo - Pulm consulted, added acetazolamide - O2 6L via Oxymask, titrate to SaO2 88-92% - Trilogy HIV at night pAF - continue apixaban lung CA - on chemotherapy, difficult to differentiate possible new lesions from acute infiltrate, will need repeat outpt PET-CT after recovered from current COPD jim chronic HFpEF HTN - continue furosemide, metoprolol succinate mood disorder - continue lamotrigine, vilazodone, mirtazapine, aripiprazole VTE ppx - apixaban dispo - STR recommended In my clinical judgment, the patient requires continued inpatient hospitalization for the following reasons: STR placement Total time managing care of this patient today: 35 minutes. Quality Stroke Does the patient have a stroke diagnosis?: No VTE Prior VTE?: No VTE Risk Level:: Medical - moderate - high VTE Device Contraindication: Treatment Not Indicated VTE Drug Contraindication: N/A - Med Ordered
[2025-08-11] VITALS (10 sets, daily range): BP systolic 109–136; BP diastolic 53–63; PULSE 64–77; RESP 16–20; TEMP 36.1–36.8; O2SAT 88–98
--- NOTE | 2025-08-11 07:20 | HO.PM.IMPN ---
Subjective Subjective Date of Service: 08/11/25 Interval History: Patient reports mild brownish sputum Patient reports that she is status Co on her COPD She reports being on 3-4 L at home-currently she is on 2 L Appears quite frail Physical Exam Exam: Exam: General: AOx3, frail-appearing, hoarse voice Resp: CTA bilaterally CVS: S1, S2, RRR GI: +BS, NT, no distention Vital Signs: Vital Signs: Last Vital Signs Temp 97.2 F 08/11/25 07:10 Pulse 65 08/11/25 07:10 Resp 17 08/11/25 07:10 BP 136/63 08/11/25 07:10 Pulse Ox 98 08/11/25 07:10 O2 Del Method Nasal Cannula 08/11/25 07:10 O2 Flow Rate 3 08/11/25 07:10 FiO2 60 08/08/25 23:27 Oxygen Flow Rate 6 08/06/25 13:53 BMI result Body Mass Index 32.0 Objective Data Active Medications Acetaminophen (Acetaminophen 325 Mg Tablet) 650 mg PO Q6H PRN PRN Reason: Pain, Mild 1-3,fever,headache Last Admin: 08/10/25 05:46 Dose: 650 mg Documented By: MARGE Acetazolamide (Acetazolamide 250 Mg Tablet) 250 mg PO BID [facility] Last Admin: 08/10/25 20:16 Dose: 250 mg Documented By: MARGE Albuterol/Ipratropium (Albuterol/Iprat 2.5/0.5mg 3 Ml Ampul.Neb) 3 ml INHALE RQ4H WHILE AWAKE [facility] Last Admin: 08/10/25 19:00 Dose: 3 ml Documented By: BERNABE Apixaban (Apixaban 5 Mg Tablet) 5 mg PO BID [facility] Last Admin: 08/10/25 20:17 Dose: 5 mg Documented By: MARGE Aripiprazole (Aripiprazole 10 Mg Tablet) 10 mg PO DAILY [facility] Last Admin: 08/10/25 10:23 Dose: 10 mg Documented By: JOSE RAMON Azithromycin (Azithromycin 500 Mg Tablet) 500 mg PO Q24H [facility] Last Admin: 08/11/25 06:01 Dose: 500 mg Documented By: MARGE Calcium Carbonate (Calcium Carbonate 750 Mg Tab.Chew) 750 mg PO Q4H PRN PRN Reason: Heartburn Calcium Carbonate (Calcium Oyster Shell Elemental 500 Mg Tablet) 500 mg PO BID [facility] Last Admin: 08/10/25 20:16 Dose: 500 mg Documented By: MARGE Docusate Sodium (Docusate Sodium 100 Mg Capsule) 100 mg PO DAILY PRN PRN Reason: Constipation Ferrous Sulfate (Ferrous Sulfate 324 Mg Tablet.) 324 mg PO Q48H [facility] Last Admin: 08/09/25 09:22 Dose: 324 mg Documented By: ARIANA Fluticasone/Vilanterol (Fluticasone/Vilanterol 200/25 Blst.W.Dev) 1 puff INHALE RDAILY [facility] Last Admin: 08/10/25 08:30 Dose: 1 puff Documented By: DIPTI Furosemide (Furosemide 40 Mg Tablet) 40 mg PO DAILY [facility]; Protocol Last Admin: 08/10/25 10:22 Dose: 40 mg Documented By: JOSE RAMON Gabapentin (Gabapentin 100 Mg Capsule) 100 mg PO BID [facility] Last Admin: 08/10/25 20:16 Dose: 100 mg Documented By: MARGE Lactulose (Lactulose 20 Gm/30 Ml Solution) 10 gm PO DAILY PRN PRN Reason: Constipation Lamotrigine (Lamotrigine 100 Mg Tablet) 200 mg PO BID [facility] Last Admin: 08/10/25 20:16 Dose: 200 mg Documented By: MARGE Lamotrigine (Lamotrigine 25 Mg Tablet) 50 mg PO BID [facility] Last Admin: 08/10/25 20:15 Dose: 50 mg Documented By: MARGE Loratadine (Loratadine 10 Mg Tablet) 10 mg PO DAILY [facility] Last Admin: 08/10/25 10:22 Dose: 10 mg Documented By: JOSE RAMON Magnesium Hydroxide (Milk Of Magnesia 30 Ml Oral.Susp) 30 ml PO DAILY PRN PRN Reason: Constipation Melatonin (Melatonin 3 Mg Tablet) 6 mg PO BEDTIME PRN PRN Reason: Insomnia Metoprolol Succinate (Metoprolol Succinate Er 100 Mg Tab.Er.24h) 100 mg PO DAILY [facility]; Protocol Last Admin: 08/10/25 10:25 Dose: 100 mg Documented By: JOSE RAMON Mirtazapine (Mirtazapine 15 Mg Tablet) 15 mg PO BEDTIME [facility] Last Admin: 08/10/25 20:17 Dose: 15 mg Documented By: MARGE Montelukast Sodium (Montelukast Sodium 10 Mg Tablet) 10 mg PO BEDTIME [facility] Last Admin: 08/10/25 20:17 Dose: 10 mg Documented By: MARGE Omeprazole (Omeprazole 20 Mg Capsule.Dr) 20 mg PO DAILY@0630 [facility] Last Admin: 08/11/25 06:01 Dose: 20 mg Documented By: MARGE Prednisone (Prednisone 20 Mg Tablet) 40 mg PO DAILY [facility] Last Admin: 08/10/25 14:05 Dose: 40 mg Documented By: JOSE RAMON Comments: unscheduled dose Senna (Sennosides 8.6 Mg Tablet) 17.2 mg PO BEDTIME [facility] Last Admin: 08/10/25 20:17 Dose: 17.2 mg Documented By: MARGE Sodium Chloride (0.9 % Sodium Chloride Flush 3 Ml Syringe) 3 ml IVFLUSH QSHIFT [facility] Last Admin: 08/10/25 20:18 Dose: 3 ml Documented By: MARGE Vilazodone HCl (Vilazodone Hcl 40 Mg Tablet) 40 mg PO DAILY [facility] Last Admin: 08/10/25 10:23 Dose: 40 mg Documented By: JOSE RAMON Labs 08/09/25 08:36 08/10/25 06:58 Labs: Laboratory Results - last 24 hr 08/10/25 08/10/25 06:58 07:08 VBG pH 7.36 VBG pCO2 73 VBG pO2 43 VBG HCO3 42 H VBG O2 Saturation 62.0 VBG Base Excess 14.2 Anion Gap 10 L Estim Creat Clear Calc 47.4 Estimated GFR 53 Random Glucose 135 H Calcium 9.4 Assessment and Plan (1) COPD exacerbation: Status: Acute Plan 70-year-old female with a past medical history of HTN, HLD, COPD, chronic respiratory failure on 6 L of home oxygen, cor pulmonale, paroxysmal AFib on Eliquis, RITA on BiPAP at night, lung cancer s/p XRT now on chemotherapy; presented to the hospital on 08/09/2025 with acute onset SOB/FERNANDEZ and was noted to be acute hypoxic respiratory failure,chronic hypercarbic respiratory failure requiring BiPAP, was loaded to be in exacerbation of COPD Acute exacerbation of chronic hypercarbic respiratory failure on 6 L home O2, secondary to COPD exacerbation Known Lung cancer on chemo Known RITA on BiPAP nocturnally Known Severe emphysema-chronic Known Multinodular defects Patient reports having ongoing SOB/FERNANDEZ despite being on appropriate maximum see body management as well as chemo therapy For now we will continue the current management with antibiotics, steroids and nocturnal CPAP, breathing treatments Reassured the patient that as long as she remains hemodynamically stable significant overt hematemesis or hematochezia, we will not be concerned about her brown sputum Paroxysmal AFib on Eliquis Continue home management HTN Continue home management . DVT prophylaxis with home Eliquis Guarded prognosis, patient wishes to be full code We will likely engage family regarding code status discussions This note is constructed using voice recognition software. While every effort has been made to ensure accuracy, inseam leveler errors may have been included. Quality Stroke Does the patient have a stroke diagnosis?: No VTE Prior VTE?: No VTE Risk Level:: Medical - moderate - high VTE Device Contraindication: Treatment Not Indicated VTE Drug Contraindication: N/A - Med Ordered
[2025-08-11] MEDS: Fluticasone/Vilanterol 200/25 BLST.W.DEV 1 PUFF INHALE (07:33)
[2025-08-11] MEDS: Albuterol/Iprat 2.5/0.5MG 3 ML AMPUL.NEB INHALE ×4 (07:33→20:25)
[2025-08-11] MEDS: 0.9 % Sodium Chloride Flush 3 ML SYRINGE IVFLUSH ×3 (09:06→20:43)
[2025-08-11] MEDS: Metoprolol Succinate ER 100 MG TAB.ER.24H PO (09:07)
[2025-08-11] MEDS: Calcium Oyster Shell Elemental 500 MG TABLET PO ×2 (09:08→20:43)
[2025-08-11] MEDS: Ferrous Sulfate 324 MG TABLET.DR PO (09:08)
--- NOTE | 2025-08-11 12:29 | MHC.CM.PN ---
STR BEING RECOMMENDED, PT STATES SHE DOES NOT WANT TO RETURN TO [facility] REFERRALS PLACED BASED ON INSURANCE, ONCE BED OFFERS ARE RECEIVED, THEY WILL BE PRESENTED TO PT.
[2025-08-12] VITALS (12 sets, daily range): BP systolic 101–142; BP diastolic 51–69; PULSE 58–81; RESP 16–20; TEMP 36.2–36.7; O2SAT 87–100
[2025-08-12 06:51] LABS: MANUAL DIFF FLAG NO
[2025-08-12 06:58] LABS: Hematocrit 35.0 % (37.0-47.0); Hemoglobin 10.8 g/dl (12.0-16.0); Imm Gran Abs Auto 0.23 X10*3/uL (0.00-0.03); Imm Gran Pct Auto 3.7 % (0.0-0.4); Lymphocytes Absolute Auto 0.6 X10*3/uL (1.2-4.9); Mean Corpuscular HGB Conc 30.9 g/dl (31.0-35.0); Mean Corpuscular Hemoglobin 28.9 pg (27.0-33.0); Mean Corpuscular Volume 93.6 fL (80.0-98.0); NRBC Abs Auto 0.000 X10*3/uL (0.0-0.012); NRBC Pct Auto 0.0 /100WBC (0.0-0.2); Platelet Count 206 X10*3/uL (160-400); Red Blood Count 3.74 X10*6/uL (4.20-5.50); White Blood Count 6.2 X10*3/uL (4.8-10.8)
[2025-08-12 07:24] LABS: Alanine Aminotransferase 33 U/L (0-31); Albumin Level 3.4 g/dL (3.5-5.0); Alkaline Phosphatase 61 U/L (39-117); Anion Gap 10 (12-20); Aspartate Amino Transferase 22 U/L (5-31); Blood Urea Nitrogen 30 mg/dL (9-16); Calcium 9.5 mg/dL (8.4-10.2); Carbon Dioxide 37 mmol/L (22-29); Chloride 100 mmol/L (96-108); Creatinine Clr Calc Pharmacy 52.6; Estimated Glomerular Filt Rate > 60; Potassium 4.0 mmol/L (3.3-5.1); Sodium 143 mmol/L (135-145); Total Protein 5.7 g/dL (6.5-8.0)
--- NOTE | 2025-08-12 07:34 | HO.PM.IMPN ---
Subjective Subjective Date of Service: 08/12/25 Interval History: Patient reports anxiety about her oxygen status Reports being hypoxic with minimal ambulation Had goals of care discussion with her Patient would like to have some time Patient would like to get her port removed Physical Exam Exam: Exam: General: AOx3, frail-appearing, hoarse voice Resp: CTA bilaterally, requiring 3 L O2 CVS: S1, S2, RRR GI: +BS, NT, no distention Vital Signs: Vital Signs: Last Vital Signs Temp 97.1 F 08/12/25 07:15 Pulse 61 08/12/25 07:15 Resp 20 08/12/25 07:15 BP 136/65 08/12/25 07:15 Pulse Ox 94 08/12/25 07:15 O2 Del Method Nasal Cannula 08/12/25 07:15 O2 Flow Rate 2 08/12/25 07:15 FiO2 60 08/08/25 23:27 Oxygen Flow Rate 6 08/06/25 13:53 BMI result Body Mass Index 32.0 Objective Data Active Medications Acetaminophen (Acetaminophen 325 Mg Tablet) 650 mg PO Q6H PRN PRN Reason: Pain, Mild 1-3,fever,headache Last Admin: 08/10/25 05:46 Dose: 650 mg Documented By: MARGE Acetazolamide (Acetazolamide 250 Mg Tablet) 250 mg PO BID [facility] Last Admin: 08/11/25 20:42 Dose: 250 mg Documented By: TYSHAWN Albuterol/Ipratropium (Albuterol/Iprat 2.5/0.5mg 3 Ml Ampul.Neb) 3 ml INHALE RQ4H WHILE AWAKE [facility] Last Admin: 08/11/25 20:25 Dose: 3 ml Documented By: BERNABE Apixaban (Apixaban 5 Mg Tablet) 5 mg PO BID [facility] Last Admin: 08/11/25 20:43 Dose: 5 mg Documented By: TYSHAWN Aripiprazole (Aripiprazole 10 Mg Tablet) 10 mg PO DAILY [facility] Last Admin: 08/11/25 09:08 Dose: 10 mg Documented By: JOSE RAMON Azithromycin (Azithromycin 500 Mg Tablet) 500 mg PO Q24H [facility] Last Admin: 08/12/25 06:08 Dose: 500 mg Documented By: TYSHAWN Calcium Carbonate (Calcium Carbonate 750 Mg Tab.Chew) 750 mg PO Q4H PRN PRN Reason: Heartburn Calcium Carbonate (Calcium Oyster Shell Elemental 500 Mg Tablet) 500 mg PO BID [facility] Last Admin: 08/11/25 20:43 Dose: 500 mg Documented By: TYSHAWN Docusate Sodium (Docusate Sodium 100 Mg Capsule) 100 mg PO DAILY PRN PRN Reason: Constipation Ferrous Sulfate (Ferrous Sulfate 324 Mg Tablet.Dr) 324 mg PO Q48H [facility] Last Admin: 08/11/25 09:08 Dose: 324 mg Documented By: JOSE RAMON Fluticasone/Vilanterol (Fluticasone/Vilanterol 200/25 Blst.W.Dev) 1 puff INHALE RDAILY [facility] Last Admin: 08/11/25 07:33 Dose: 1 puff Documented By: DIPTI Furosemide (Furosemide 40 Mg Tablet) 40 mg PO DAILY [facility]; Protocol Last Admin: 08/11/25 09:08 Dose: 40 mg Documented By: JOSE RAMON Gabapentin (Gabapentin 100 Mg Capsule) 100 mg PO BID [facility] Last Admin: 08/11/25 20:43 Dose: 100 mg Documented By: TYSHAWN Lactulose (Lactulose 20 Gm/30 Ml Solution) 10 gm PO DAILY PRN PRN Reason: Constipation Lamotrigine (Lamotrigine 100 Mg Tablet) 200 mg PO BID [facility] Last Admin: 08/11/25 20:43 Dose: 200 mg Documented By: TYSHAWN Lamotrigine (Lamotrigine 25 Mg Tablet) 50 mg PO BID [facility] Last Admin: 08/11/25 20:43 Dose: 50 mg Documented By: TYSHAWN Loratadine (Loratadine 10 Mg Tablet) 10 mg PO DAILY [facility] Last Admin: 08/11/25 09:06 Dose: 10 mg Documented By: JOSE RAMON Magnesium Hydroxide (Milk Of Magnesia 30 Ml Oral.Susp) 30 ml PO DAILY PRN PRN Reason: Constipation Melatonin (Melatonin 3 Mg Tablet) 6 mg PO BEDTIME PRN PRN Reason: Insomnia Metoprolol Succinate (Metoprolol Succinate Er 100 Mg Tab.Er.24h) 100 mg PO DAILY [facility]; Protocol Last Admin: 08/11/25 09:07 Dose: 100 mg Documented By: JOSE RAMON Mirtazapine (Mirtazapine 15 Mg Tablet) 15 mg PO BEDTIME [facility] Last Admin: 08/11/25 20:42 Dose: 15 mg Documented By: TYSHAWN Montelukast Sodium (Montelukast Sodium 10 Mg Tablet) 10 mg PO BEDTIME [facility] Last Admin: 08/11/25 20:43 Dose: 10 mg Documented By: TYSHAWN Omeprazole (Omeprazole 20 Mg Capsule.Dr) 20 mg PO DAILY@0630 [facility] Last Admin: 08/12/25 06:08 Dose: 20 mg Documented By: TYSHAWN Prednisone (Prednisone 20 Mg Tablet) 40 mg PO DAILY [facility] Last Admin: 08/11/25 09:07 Dose: 40 mg Documented By: JOSE RAMON Senna (Sennosides 8.6 Mg Tablet) 17.2 mg PO BEDTIME [facility] Last Admin: 08/11/25 20:42 Dose: 17.2 mg Documented By: TYSHAWN Sodium Chloride (0.9 % Sodium Chloride Flush 3 Ml Syringe) 3 ml IVFLUSH QSHIFT [facility] Last Admin: 08/11/25 20:43 Dose: 3 ml Documented By: TYSHAWN Vilazodone HCl (Vilazodone Hcl 40 Mg Tablet) 40 mg PO DAILY [facility] Last Admin: 08/11/25 09:06 Dose: 40 mg Documented By: JOSE RAMON Labs 08/12/25 05:49 08/12/25 05:49 Labs: Laboratory Results - last 24 hr 08/12/25 05:49 MCV 93.6 MCH 28.9 MCHC 30.9 L RDW 16.5 H Plt Count 206 MPV 9.3 L Immature Gran % (Auto) 3.7 H Neut % (Auto) 77.4 H Lymph % (Auto) 10.1 L [place] % (Auto) 8.0 Eos % (Auto) 0.5 Baso % (Auto) 0.3 Lymph # (Auto) 0.6 L [place] # (Auto) 0.5 Eos # (Auto) 0.0 Baso # (Auto) 0.0 Abs Immat Gran (auto) 0.23 H Absolute Neuts (auto) 4.8 Absolute Nucleated RBC 0.000 Nucleated RBC % (auto) 0.0 Anion Gap 10 L Estim Creat Clear Calc 52.6 Estimated GFR > 60 Random Glucose 89 Calcium 9.5 Total Bilirubin 0.1 AST 22 ALT 33 H Alkaline Phosphatase 61 Total Protein 5.7 L Albumin 3.4 L Assessment and Plan (1) COPD exacerbation: Status: Acute Plan 70-year-old female with a past medical history of HTN, HLD, COPD, chronic respiratory failure on 6 L of home oxygen, cor pulmonale, paroxysmal AFib on Eliquis, RITA on BiPAP at night, lung cancer s/p XRT now on chemotherapy; presented to the hospital on 08/09/2025 with acute onset SOB/FERNANDEZ and was noted to be acute hypoxic respiratory failure,chronic hypercarbic respiratory failure requiring BiPAP, was loaded to be in exacerbation of COPD Acute exacerbation of chronic hypercarbic respiratory failure on 6 L home O2, secondary to COPD exacerbation-improving Known Lung cancer on chemo -carotid permission Known RITA on BiPAP nocturnally -unable to tolerate Known Severe emphysema-chronic Known Multinodular pulmonary defects-likely meds Patient reports having ongoing SOB/FERNANDEZ despite being on appropriate maximum see body management as well as chemo therapy, patient was educated about her guarded prognosis, would like to rethink Patient finished antibiotic treatment, we will taper steroids by 10 mg every 5 days Patient is very anxious about her prognosis-goals of care discussion ongoing Patient has a right Med[employer]Port-we will need to reach out to her Heme-Onc regarding plan for further treatment options. Paroxysmal AFib on Eliquis Continue Eliquis HTN Continue home management . DVT prophylaxis with home Eliquis Guarded prognosis, patient wishes to be full code We will likely engage family regarding code status discussions This note is constructed using voice recognition software. While every effort has been made to ensure accuracy, portfolio management marketing errors may have been included. Quality Stroke Does the patient have a stroke diagnosis?: No VTE Prior VTE?: No VTE Risk Level:: Medical - moderate - high VTE Device Contraindication: Treatment Not Indicated VTE Drug Contraindication: N/A - Med Ordered
[2025-08-12] MEDS: Fluticasone/Vilanterol 200/25 BLST.W.DEV 1 PUFF INHALE (08:01)
[2025-08-12] MEDS: Albuterol/Iprat 2.5/0.5MG 3 ML AMPUL.NEB INHALE ×4 (08:01→19:12)
[2025-08-12] MEDS: 0.9 % Sodium Chloride Flush 3 ML SYRINGE IVFLUSH ×2 (09:36→21:06)
[2025-08-12] MEDS: Calcium Oyster Shell Elemental 500 MG TABLET PO ×2 (09:37→21:00)
[2025-08-12] MEDS: Metoprolol Succinate ER 100 MG TAB.ER.24H PO (09:38)
--- NOTE | 2025-08-12 10:50 | MHC.CM.PN ---
Addendum entered by Isamar Acevedo 08/12/25 11:04: PER RT, BIPAP/not CPAP Original Note: Per RT, Patient has a Lam CPAP home Unit(not a vent).
--- NOTE | 2025-08-12 13:35 | MHC.CM.PN ---
Per RN, Patient/family do not want [facility]. CM will follow.
[2025-08-13] VITALS (12 sets, daily range): BP systolic 110–141; BP diastolic 58–68; PULSE 58–74; RESP 17–18; TEMP 36.1–36.8; O2SAT 91–99
[2025-08-13] MEDS: Fluticasone/Vilanterol 200/25 BLST.W.DEV 1 PUFF INHALE (07:18)
[2025-08-13] MEDS: Albuterol/Iprat 2.5/0.5MG 3 ML AMPUL.NEB INHALE ×4 (07:18→20:24)
--- NOTE | 2025-08-13 07:18 | HO.PM.IMPN ---
Subjective Subjective Date of Service: 08/13/25 Interval History: Patient hemodynamically stable Awaiting rehab If unable to get rehab, we can discharge her home with outpatient rehab facilities Apparently patient to have outpatient chemo on Tuesday-we will likely advised to follow-up if it needs to be postponed Physical Exam Exam: Exam: General: AOx3, frail-appearing, hoarse voice Resp: CTA bilaterally, requiring 3 L O2 CVS: S1, S2, RRR GI: +BS, NT, no distention Vital Signs: Vital Signs: Last Vital Signs Temp 97.3 F 08/13/25 07:13 Pulse 64 08/13/25 07:13 Resp 18 08/13/25 07:13 BP 139/60 08/13/25 07:13 Pulse Ox 98 08/13/25 07:13 O2 Del Method Nasal Cannula 08/13/25 07:13 O2 Flow Rate 3 08/13/25 07:13 FiO2 60 08/08/25 23:27 Oxygen Flow Rate 6 08/06/25 13:53 BMI result Body Mass Index 32.0 Objective Data Active Medications Acetaminophen (Acetaminophen 325 Mg Tablet) 650 mg PO Q6H PRN PRN Reason: Pain, Mild 1-3,fever,headache Last Admin: 08/10/25 05:46 Dose: 650 mg Documented By: MARGE Acetazolamide (Acetazolamide 250 Mg Tablet) 250 mg PO BID [facility] Last Admin: 08/12/25 21:00 Dose: 250 mg Documented By: JOSE Albuterol/Ipratropium (Albuterol/Iprat 2.5/0.5mg 3 Ml Ampul.Neb) 3 ml INHALE RQ4H WHILE AWAKE [facility] Last Admin: 08/12/25 19:12 Dose: 3 ml Documented By: BERNABE Apixaban (Apixaban 5 Mg Tablet) 5 mg PO BID [facility] Last Admin: 08/12/25 21:00 Dose: 5 mg Documented By: JOSE Aripiprazole (Aripiprazole 10 Mg Tablet) 10 mg PO DAILY [facility] Last Admin: 08/12/25 09:37 Dose: 10 mg Documented By: JOSE RAMON Calcium Carbonate (Calcium Carbonate 750 Mg Tab.Chew) 750 mg PO Q4H PRN PRN Reason: Heartburn Calcium Carbonate (Calcium Oyster Shell Elemental 500 Mg Tablet) 500 mg PO BID [facility] Last Admin: 08/12/25 21:00 Dose: 500 mg Documented By: JOSE Docusate Sodium (Docusate Sodium 100 Mg Capsule) 100 mg PO DAILY PRN PRN Reason: Constipation Ferrous Sulfate (Ferrous Sulfate 324 Mg Tablet.Dr) 324 mg PO Q48H [facility] Last Admin: 08/11/25 09:08 Dose: 324 mg Documented By: JOSE RAMON Fluticasone/Vilanterol (Fluticasone/Vilanterol 200/25 Blst.W.Dev) 1 puff INHALE RDAILY [facility] Last Admin: 08/12/25 08:01 Dose: 1 puff Documented By: AUDIE Furosemide (Furosemide 40 Mg Tablet) 40 mg PO DAILY [facility]; Protocol Last Admin: 08/12/25 09:37 Dose: 40 mg Documented By: JOSE RAMON Gabapentin (Gabapentin 100 Mg Capsule) 100 mg PO BID [facility] Last Admin: 08/12/25 21:00 Dose: 100 mg Documented By: JOSE Lactulose (Lactulose 20 Gm/30 Ml Solution) 10 gm PO DAILY PRN PRN Reason: Constipation Lamotrigine (Lamotrigine 100 Mg Tablet) 200 mg PO BID [facility] Last Admin: 08/12/25 21:00 Dose: 200 mg Documented By: JOSE Lamotrigine (Lamotrigine 25 Mg Tablet) 50 mg PO BID [facility] Last Admin: 08/12/25 20:59 Dose: 50 mg Documented By: JOSE Loratadine (Loratadine 10 Mg Tablet) 10 mg PO DAILY [facility] Last Admin: 08/12/25 09:37 Dose: 10 mg Documented By: JOSE RAMON Magnesium Hydroxide (Milk Of Magnesia 30 Ml Oral.Susp) 30 ml PO DAILY PRN PRN Reason: Constipation Melatonin (Melatonin 3 Mg Tablet) 6 mg PO BEDTIME PRN PRN Reason: Insomnia Metoprolol Succinate (Metoprolol Succinate Er 100 Mg Tab.Er.24h) 100 mg PO DAILY [facility]; Protocol Last Admin: 08/12/25 09:38 Dose: 100 mg Documented By: JOSE RAMON Mirtazapine (Mirtazapine 15 Mg Tablet) 15 mg PO BEDTIME [facility] Last Admin: 08/12/25 21:00 Dose: 15 mg Documented By: JOSE Montelukast Sodium (Montelukast Sodium 10 Mg Tablet) 10 mg PO BEDTIME [facility] Last Admin: 08/12/25 21:00 Dose: 10 mg Documented By: JOSE Omeprazole (Omeprazole 20 Mg Capsule.Dr) 20 mg PO DAILY@0630 [facility] Last Admin: 08/12/25 06:08 Dose: 20 mg Documented By: TYSHAWN Prednisone (Prednisone 20 Mg Tablet) 30 mg PO DAILY [facility]; Taper Stop: 08/28/25 08:59 Senna (Sennosides 8.6 Mg Tablet) 17.2 mg PO BEDTIME [facility] Last Admin: 08/12/25 21:01 Dose: 17.2 mg Documented By: JOSE Sodium Chloride (0.9 % Sodium Chloride Flush 3 Ml Syringe) 3 ml IVFLUSH QSHIFT [facility] Last Admin: 08/12/25 21:06 Dose: 3 ml Documented By: JOSE Vilazodone HCl (Vilazodone Hcl 40 Mg Tablet) 40 mg PO DAILY [facility] Last Admin: 08/12/25 09:36 Dose: 40 mg Documented By: JOSE RAMON Labs 08/13/25 06:46 08/13/25 06:46 Labs: Laboratory Results - last 24 hr 08/12/25 05:49 Anion Gap 10 L Estim Creat Clear Calc 52.6 Estimated GFR > 60 Random Glucose 89 Calcium 9.5 Total Bilirubin 0.1 AST 22 ALT 33 H Alkaline Phosphatase 61 Total Protein 5.7 L Albumin 3.4 L Assessment and Plan (1) COPD exacerbation: Status: Acute Plan 70-year-old female with a past medical history of HTN, HLD, COPD, chronic respiratory failure on 6 L of home oxygen, cor pulmonale, paroxysmal AFib on Eliquis, RITA on BiPAP at night, lung cancer s/p XRT now on chemotherapy; presented to the hospital on 08/09/2025 with acute onset SOB/FERNANDEZ and was noted to be acute hypoxic respiratory failure,chronic hypercarbic respiratory failure requiring BiPAP, was loaded to be in exacerbation of COPD Acute exacerbation of chronic hypercarbic respiratory failure on 6 L home O2, secondary to COPD exacerbation-improving Known Lung cancer on chemo -carotid permission Known RITA on BiPAP nocturnally -unable to tolerate Known Severe emphysema-chronic Known Multinodular pulmonary defects-likely mets outpatient [place] follow-up Patient is back to her baseline, medically optimized, awaiting pulmonary rehab if no availability at pulmonary rehab can have outpatient rehab Patient s/p antibiotic treatment, steroids being tapered by 10 mg every 5 days Patient is aware of her prognosis-would like to continue all aggressive management Patient to reach out to primary Heme-Onc outpatient regarding her chemo treatment next Tuesday Paroxysmal AFib on Eliquis Continue Eliquis HTN Continue home management . DVT prophylaxis with home Eliquis Guarded prognosis, goals of care discussion had with the patient-full code Disposition:Patient is back to her baseline, medically optimized, awaiting pulmonary rehab if no availability at pulmonary rehab can have outpatient lázaro This note is constructed using voice recognition software. While every effort has been made to ensure accuracy, produce department supervisor errors may have been included. Quality Stroke Does the patient have a stroke diagnosis?: No VTE Prior VTE?: No VTE Risk Level:: Medical - moderate - high VTE Device Contraindication: Treatment Not Indicated VTE Drug Contraindication: N/A - Med Ordered
[2025-08-13 07:24] LABS: MANUAL DIFF FLAG NO
[2025-08-13 07:34] LABS: Hematocrit 35.9 % (37.0-47.0); Hemoglobin 10.9 g/dl (12.0-16.0); Imm Gran Abs Auto 0.26 X10*3/uL (0.00-0.03); Imm Gran Pct Auto 4.2 % (0.0-0.4); Lymphocytes Absolute Auto 0.5 X10*3/uL (1.2-4.9); Mean Corpuscular HGB Conc 30.4 g/dl (31.0-35.0); Mean Corpuscular Hemoglobin 27.9 pg (27.0-33.0); Mean Corpuscular Volume 92.1 fL (80.0-98.0); NRBC Abs Auto 0.000 X10*3/uL (0.0-0.012); NRBC Pct Auto 0.0 /100WBC (0.0-0.2); Platelet Count 197 X10*3/uL (160-400); Red Blood Count 3.90 X10*6/uL (4.20-5.50); White Blood Count 6.2 X10*3/uL (4.8-10.8)
[2025-08-13 08:01] LABS: Alanine Aminotransferase 35 U/L (0-31); Albumin Level 3.5 g/dL (3.5-5.0); Alkaline Phosphatase 64 U/L (39-117); Anion Gap 7 (12-20); Aspartate Amino Transferase 22 U/L (5-31); Blood Urea Nitrogen 27 mg/dL (9-16); Calcium 9.1 mg/dL (8.4-10.2); Carbon Dioxide 40 mmol/L (22-29); Chloride 100 mmol/L (96-108); Creatinine Clr Calc Pharmacy 51.4; Estimated Glomerular Filt Rate 59; Potassium 3.7 mmol/L (3.3-5.1); Sodium 143 mmol/L (135-145); Total Protein 5.7 g/dL (6.5-8.0)
[2025-08-13] MEDS: Calcium Oyster Shell Elemental 500 MG TABLET PO ×2 (08:36→21:38)
[2025-08-13] MEDS: Ferrous Sulfate 324 MG TABLET.DR PO (08:40)
[2025-08-13] MEDS: Metoprolol Succinate ER 100 MG TAB.ER.24H PO (08:40)
[2025-08-13] MEDS: 0.9 % Sodium Chloride Flush 3 ML SYRINGE IVFLUSH ×2 (08:52→18:44)
--- NOTE | 2025-08-13 15:36 | MHC.CM.PN ---
Addendum entered by Hailey Day 08/13/25 15:55: STR bed offer received from [facility]. The pt and her daughter accept this bed offer, this CM requested they pursue insurance auth. Original Note: This CM met with pt to discuss discharge plans, and spoke with pts daughter Heather on the telephone. At this time, there are no available pulmonary rehabs for the pt to go to. Pts discharge plan earlier today was going to be to go home with services. However, there are concerns from the pt and her daughter about the pt going home with services, as she feels very weak. [facility] is the only SNF offering the pt a bed for STR. Pt states it is too far, pts daughter stated if its the only place available for her she should go, but also asked if we could try finding a closer place. Referrals expanded in [facility] [place], awaiting other bed offer, if none, will pursue auth for STR at [facility].
[2025-08-13 15:37] LABS: Thyroid Stimulating Hormone 2.33 uIU/mL (0.32-4.0)
[2025-08-14] VITALS (8 sets, daily range): BP systolic 113–127; BP diastolic 56–66; PULSE 57–76; RESP 18–20; TEMP 36.2–36.4; O2SAT 94–97
[2025-08-14 06:17] LABS: MANUAL DIFF FLAG NO
[2025-08-14 06:21] LABS: Hematocrit 33.9 % (37.0-47.0); Hemoglobin 10.8 g/dl (12.0-16.0); Imm Gran Abs Auto 0.15 X10*3/uL (0.00-0.03); Imm Gran Pct Auto 2.2 % (0.0-0.4); Lymphocytes Absolute Auto 0.6 X10*3/uL (1.2-4.9); Mean Corpuscular HGB Conc 31.9 g/dl (31.0-35.0); Mean Corpuscular Hemoglobin 28.6 pg (27.0-33.0); Mean Corpuscular Volume 89.9 fL (80.0-98.0); NRBC Abs Auto 0.000 X10*3/uL (0.0-0.012); NRBC Pct Auto 0.0 /100WBC (0.0-0.2); Platelet Count 175 X10*3/uL (160-400); Red Blood Count 3.77 X10*6/uL (4.20-5.50); White Blood Count 7.0 X10*3/uL (4.8-10.8)
[2025-08-14 06:38] LABS: Alanine Aminotransferase 44 U/L (0-31); Albumin Level 3.6 g/dL (3.5-5.0); Alkaline Phosphatase 64 U/L (39-117); Anion Gap 10 (12-20); Aspartate Amino Transferase 25 U/L (5-31); Blood Urea Nitrogen 28 mg/dL (9-16); Calcium 9.1 mg/dL (8.4-10.2); Carbon Dioxide 36 mmol/L (22-29); Chloride 100 mmol/L (96-108); Creatinine Clr Calc Pharmacy 50.9; Estimated Glomerular Filt Rate 58; Potassium 3.6 mmol/L (3.3-5.1); Sodium 142 mmol/L (135-145); Total Protein 5.9 g/dL (6.5-8.0)
[2025-08-14] MEDS: Albuterol/Iprat 2.5/0.5MG 3 ML AMPUL.NEB INHALE ×2 (08:02→11:13)
[2025-08-14] MEDS: Fluticasone/Vilanterol 200/25 BLST.W.DEV 1 PUFF INHALE (08:02)
--- NOTE | 2025-08-14 08:41 | P.PNIM_ITS ---
Subjective Subjective Date of Service: 08/14/25 Physical Exam 2 Vital Signs: Vital Signs: Last Vital Signs Temp 97.1 F 08/14/25 07:19 Pulse 60 08/14/25 08:04 Resp 20 08/14/25 08:04 BP 113/57 L 08/14/25 07:19 Pulse Ox 97 08/14/25 07:19 O2 Del Method Nasal Cannula 08/14/25 07:19 O2 Flow Rate 3 08/14/25 07:19 FiO2 60 08/08/25 23:27 Oxygen Flow Rate 6 08/06/25 13:53 BMI result Body Mass Index 32.0 Objective Data Active Medications Acetaminophen (Acetaminophen 325 Mg Tablet) 650 mg PO Q6H PRN PRN Reason: Pain, Mild 1-3,fever,headache Last Admin: 08/10/25 05:46 Dose: 650 mg Documented By: MARGE Acetazolamide (Acetazolamide 250 Mg Tablet) 250 mg PO BID [facility] Last Admin: 08/13/25 21:38 Dose: 250 mg Documented By: LIONEL Albuterol/Ipratropium (Albuterol/Iprat 2.5/0.5mg 3 Ml Ampul.Neb) 3 ml INHALE RQ4H WHILE AWAKE [facility] Last Admin: 08/14/25 08:02 Dose: 3 ml Documented By: WILMER Apixaban (Apixaban 5 Mg Tablet) 5 mg PO BID [facility] Last Admin: 08/13/25 21:38 Dose: 5 mg Documented By: LIONEL Aripiprazole (Aripiprazole 10 Mg Tablet) 10 mg PO DAILY [facility] Last Admin: 08/13/25 08:40 Dose: 10 mg Documented By: MICHELLE Calcium Carbonate (Calcium Carbonate 750 Mg Tab.Chew) 750 mg PO Q4H PRN PRN Reason: Heartburn Calcium Carbonate (Calcium Oyster Shell Elemental 500 Mg Tablet) 500 mg PO BID [facility] Last Admin: 08/13/25 21:38 Dose: 500 mg Documented By: LIONEL Docusate Sodium (Docusate Sodium 100 Mg Capsule) 100 mg PO DAILY PRN PRN Reason: Constipation Ferrous Sulfate (Ferrous Sulfate 324 Mg Tablet.Dr) 324 mg PO Q48H [facility] Last Admin: 08/13/25 08:40 Dose: 324 mg Documented By: HO.STOFFOM Fluticasone/Vilanterol (Fluticasone/Vilanterol 200/25 Blst.W.Dev) 1 puff INHALE RDAILY [facility] Last Admin: 08/14/25 08:02 Dose: 1 puff Documented By: WILMER Furosemide (Furosemide 40 Mg Tablet) 40 mg PO DAILY [facility]; Protocol Last Admin: 08/13/25 08:36 Dose: 40 mg Documented By: MICHELLE Gabapentin (Gabapentin 100 Mg Capsule) 100 mg PO BID [facility] Last Admin: 08/13/25 21:38 Dose: 100 mg Documented By: LIONEL Lactulose (Lactulose 20 Gm/30 Ml Solution) 10 gm PO DAILY PRN PRN Reason: Constipation Lamotrigine (Lamotrigine 100 Mg Tablet) 200 mg PO BID [facility] Last Admin: 08/13/25 21:39 Dose: 200 mg Documented By: LIONEL Lamotrigine (Lamotrigine 25 Mg Tablet) 50 mg PO BID [facility] Last Admin: 08/13/25 21:39 Dose: 50 mg Documented By: LIONEL Loratadine (Loratadine 10 Mg Tablet) 10 mg PO DAILY [facility] Last Admin: 08/13/25 08:35 Dose: 10 mg Documented By: MICHELLE Magnesium Hydroxide (Milk Of Magnesia 30 Ml Oral.Susp) 30 ml PO DAILY PRN PRN Reason: Constipation Melatonin (Melatonin 3 Mg Tablet) 6 mg PO BEDTIME PRN PRN Reason: Insomnia Metoprolol Succinate (Metoprolol Succinate Er 100 Mg Tab.Er.24h) 100 mg PO DAILY [facility]; Protocol Last Admin: 08/13/25 08:40 Dose: 100 mg Documented By: MICHELLE Mirtazapine (Mirtazapine 15 Mg Tablet) 15 mg PO BEDTIME [facility] Last Admin: 08/13/25 21:39 Dose: 15 mg Documented By: LIONEL Montelukast Sodium (Montelukast Sodium 10 Mg Tablet) 10 mg PO BEDTIME [facility] Last Admin: 08/13/25 21:39 Dose: 10 mg Documented By: LIONEL Omeprazole (Omeprazole 20 Mg Capsule.Dr) 20 mg PO DAILY@0630 [facility] Last Admin: 08/14/25 06:47 Dose: Not Given Documented By: LIONEL Non-Admin Reason: Patient Refused Prednisone (Prednisone 20 Mg Tablet) 30 mg PO DAILY [facility]; Taper Stop: 08/28/25 08:59 Last Admin: 08/13/25 08:35 Dose: 30 mg Documented By: MICHELLE Senna (Sennosides 8.6 Mg Tablet) 17.2 mg PO BEDTIME [facility] Last Admin: 08/13/25 21:47 Dose: 17.2 mg Documented By: LIONEL Sodium Chloride (0.9 % Sodium Chloride Flush 3 Ml Syringe) 3 ml IVFLUSH QSHIFT [facility] Last Admin: 08/14/25 01:00 Dose: Not Given Documented By: LIONEL Non-Admin Reason: Patient Asleep Vilazodone HCl (Vilazodone Hcl 40 Mg Tablet) 40 mg PO DAILY [facility] Last Admin: 08/13/25 08:36 Dose: 40 mg Documented By: MICHELLE Labs 08/14/25 06:04 08/14/25 06:04 Labs: Laboratory Results - last 24 hr 08/13/25 08/14/25 06:46 06:04 MCV 89.9 MCH 28.6 MCHC 31.9 RDW 16.3 H Plt Count 175 MPV 8.4 L Immature Gran % (Auto) 2.2 H Neut % (Auto) 82.7 H Lymph % (Auto) 8.3 L [place] % (Auto) 5.8 Eos % (Auto) 0.7 Baso % (Auto) 0.3 Lymph # (Auto) 0.6 L [place] # (Auto) 0.4 Eos # (Auto) 0.1 Baso # (Auto) 0.0 Abs Immat Gran (auto) 0.15 H Absolute Neuts (auto) 5.8 Absolute Nucleated RBC 0.000 Nucleated RBC % (auto) 0.0 Anion Gap 10 L Estim Creat Clear Calc 50.9 Estimated GFR 58 Random Glucose 87 Calcium 9.1 Total Bilirubin 0.2 AST 25 ALT 44 H Alkaline Phosphatase 64 Total Protein 5.9 L Albumin 3.6 TSH 2.33 Quality Stroke Does the patient have a stroke diagnosis?: No VTE Prior VTE?: No VTE Risk Level:: Medical - moderate - high VTE Device Contraindication: Treatment Not Indicated VTE Drug Contraindication: N/A - Med Ordered
[2025-08-14] MEDS: 0.9 % Sodium Chloride Flush 3 ML SYRINGE IVFLUSH ×2 (09:32→14:01)
[2025-08-14] MEDS: Calcium Oyster Shell Elemental 500 MG TABLET PO (09:33)
[2025-08-14] MEDS: Metoprolol Succinate ER 100 MG TAB.ER.24H PO (09:34)
--- NOTE | 2025-08-14 11:17 | MHC.CM.PN ---
Addendum entered by Hailey Day 08/14/25 13:24: This CM met with pt to clarify that her insurance denied her SNF stay for STR but have provided auth for penitentiary care. Pt is aware that she has the option of filing and appeal. Pt states she would still like to go to [facility] for Correction care today and declines the option of filing an appeal. Original Note: Insurance auth received for pt to go to STR at [facility] today, she will transport there via [facility]. Second IMM given 08/14. Pt is aware and in agreement with the discharge plan.
--- NOTE | 2025-08-14 11:21 | PM.DS ---
DS: Providers Provider Date of Service: 08/14/25 Date of admission: 08/06/25 19:23 Date of discharge: 08/14/25 Primary care physician: Kinjal Barron NP Consults: 08/09/25 09:17 Consult to Pulmonology Routine Consulting Provider: [facility] [place] [facility] [place] Reason for consultation: copd lung CA Trilogy DS: Diagnosis Discharge Diagnosis (1) COPD exacerbation: Status: Acute DS: Summary Hospital Course Hospital Course: Acute exacerbation of chronic hypercarbic respiratory failure on 6 L home O2, secondary to COPD exacerbation-improving Known Lung cancer on chemo -apparently patient has an appointment on Tuesday with her primary oncologist Known RITA on BiPAP nocturnally -unable to tolerate-advised to talk to her die finisher Known Severe cuuupvbxy-eddhhbx-dhfkek at the time of discharge Known Multinodular pulmonary defects-likely mets outpatient palm follow-up 70-year-old female with a past medical history of HTN, HLD, COPD, chronic respiratory failure on 6 L of home oxygen, cor pulmonale, paroxysmal AFib on Eliquis, RITA on BiPAP at night, lung cancer s/p XRT now on chemotherapy; presented to the hospital on 08/09/2025 with acute onset SOB/FERNANDEZ and was noted to be acute hypoxic respiratory failure,chronic hypercarbic respiratory failure requiring BiPAP, was noted to be in exacerbation of COPD as a natural progression of her COPD given underlying chronic medical conditions. Patient s/p broad-spectrum antibiotic treatment, steroids being tapered by 10 mg every 5 days until 08/24/2025 after which he will continue taking her home prednisone dose 10 mg indefinitely until she is seen by her pulmonology. Patient is aware of her prognosis-would like to continue all aggressive management Patient to reach out to primary Heme-Onc outpatient regarding her chemo treatment next Tuesday Paroxysmal AFib on Eliquis Continued Eliquis HTN Continued home management DVT prophylaxis was with home Eliquis Guarded prognosis, goals of care discussion had with the patient-full code This note is constructed using voice recognition software. While every effort has been made to ensure accuracy, meat pickler errors may have been included. Time spent discussing smoking cessation with patient: more than 10 minutes Time Attestation Discharge Coordination Time (in mins): Greater than 35 minutes Quality: Safe Use of Opioids Does Pt have an Active Cancer Diagnosis on the Problem List?: Yes Opioid Measure Date for CMS Report: 07/15/25 Opioid Measure Time for [facility] [address] Report: 11:25 Quality: Stroke Does the patient have a stroke diagnosis?: No Physical Exam Vital Signs: Vital Signs: Last Vital Signs Temp 97.1 F 08/14/25 07:19 Pulse 76 08/14/25 09:34 Resp 20 08/14/25 08:04 BP 113/57 L 08/14/25 09:36 Pulse Ox 97 08/14/25 07:19 O2 Del Method Nasal Cannula 08/14/25 07:19 O2 Flow Rate 3 08/14/25 07:19 FiO2 60 08/08/25 23:27 Oxygen Flow Rate 6 08/06/25 13:53 BMI result Body Mass Index 32.0 DS: Data Data Completed and Pending Completed studies during hospitalization [Text1]: Procedures Assistance with Respiratory Ventilation, Less than 24 Consecutive Hours, Continuous Positive Airway Pressure (10/03/24) Labs on day of discharge: Laboratory Results - last 24 hr 08/13/25 08/14/25 06:46 06:04 WBC 7.0 RBC 3.77 L Hgb 10.8 L Hct 33.9 L MCV 89.9 MCH 28.6 MCHC 31.9 RDW 16.3 H Plt Count 175 MPV 8.4 L Immature Gran % (Auto) 2.2 H Neut % (Auto) 82.7 H Lymph % (Auto) 8.3 L Mills % (Auto) 5.8 Eos % (Auto) 0.7 Baso % (Auto) 0.3 Lymph # (Auto) 0.6 L Mills # (Auto) 0.4 Eos # (Auto) 0.1 Baso # (Auto) 0.0 Abs Immat Gran (auto) 0.15 H Absolute Neuts (auto) 5.8 Absolute Nucleated RBC 0.000 Nucleated RBC % (auto) 0.0 Sodium 142 Potassium 3.6 Chloride 100 Carbon Dioxide 36 H Anion Gap 10 L BUN 28 H Creatinine 0.95 Estim Creat Clear Calc 50.9 Estimated GFR 58 Random Glucose 87 Calcium 9.1 Total Bilirubin 0.2 AST 25 ALT 44 H Alkaline Phosphatase 64 Total Protein 5.9 L Albumin 3.6 TSH 2.33 Discharge Plan Discharge Anticipated Discharge Date/Time: 08/14/25 10:53 Patient Disposition: Xfer SNF Discharge Diagnosis: AHRF 2/2 COPD exacerbation Referrals: Mayda Benavides [Outside] - 1 Week Kinjal Barron NP [Primary Care Provider, Internal Medicine] - 1 Week Caden Acharya MD [Physician, Pulmonology] - 1 Week Discharge Medications: New prednisone 20 mg Tablet 30 mg PO DAILY 10 Days Qty: 10 0RF Taper: Prednisone 30 mg daily for 5 Days and 0 Hour 20 mg daily for 5 Days and 0 Hour Rx Instructions: upto 08/24/25 acetazolamide 250 mg Tablet 250 mg PO BID 7 Days Qty: 14 0RF Continued fluticasone propionate 50 mcg/actuation spray,suspension 1 spray intranasal DAILY 30 Days Qty: 16 11RF montelukast 10 mg tablet 10 mg PO BEDTIME 90 Days Qty: 90 3RF loratadine [Claritin] 10 mg tablet 10 mg PO DAILY 30 Days Qty: 30 11RF ipratropium bromide 0.02 % solution 2.5 ml inhalation QID Qty: 300 11RF albuterol sulfate 2.5 mg /3 mL (0.083 %) solution for nebulization 2.5 mg inhalation QID Qty: 360 11RF albuterol sulfate 90 mcg/actuation HFA aerosol inhaler 2 puff INHALATION Q6H PRN (Reason: Respiratory Distress) Qty: 8.5 11RF theophylline 300 mg tablet extended release 12 hr 300 mg PO Q12H Qty: 60 8RF alendronate [Fosamax] 70 mg Tablet 70 mg PO DOMINGUEZ mirtazapine 15 mg tablet 15 mg PO BEDTIME metoprolol succinate 50 mg Tablet Extended Release 24 Hr 100 mg PO DAILY docusate sodium 100 mg capsule 100 mg PO DAILY PRN (Reason: Constipation) pantoprazole 40 mg tablet,delayed release (DR/EC) 40 mg PO DAILY@0630 mineral oil Oil 1 appl TOPICAL Q48H PRN (Reason: eczema) Rx Instructions: apply to both outer ears topically aripiprazole 10 mg tablet 10 mg PO DAILY omega [id number]-hfl-fish oil [Fish Oil] 1,000 mg (120 mg-180 mg) Capsule 1 cap PO BID Eliquis 5 mg tablet 5 mg PO BID furosemide 40 mg tablet 40 mg PO DAILY lamotrigine 200 mg tablet 200 mg PO BID lamotrigine 25 mg tablet 50 mg PO BID Rx Instructions: ordered to take along with 200 mg bedtime dose for 2 weeks and then stop lactulose [Enulose] 10 gram/15 mL solution 15 ml PO DAILY PRN (Reason: constipation) vilazodone 40 mg tablet 40 mg PO DAILY fluticasone furoate-vilanterol [Breo Ellipta] 200-25 mcg/dose blister with device 1 ea inhalation DAILY calcium carbonate [Oyster Shell Calcium] 500 mg calcium (1,250 mg) Tablet 500 mg PO BID cholecalciferol (vitamin D3) [Vitamin D3] 25 mcg (1,000 unit) Tablet 25 mcg PO DAILY prednisone 5 mg tablet 10 mg PO DAILY 30 Days Qty: 60 0RF Rx Instructions: please continue home 10mg dose after finishing taper to prednisone taper for acute Exacerbation from 08/24/25 sennosides [Senokot] 8.6 mg tablet 8.6 mg PO BEDTIME Rx Instructions: Hold for loose stools gabapentin 100 mg capsule 100 mg PO BID (DME) nebulizers Misc See Rx Instructions .Route Rx Instructions: As directed (DME) Oxygen Home Use Kit See Rx Instructions .Route Rx Instructions: As directed ferrous gluconate 324 mg (38 mg iron) tablet 324 mg PO Q48H Discharge Orders: Discharge Order (Routine); Ordered 08/14/25 Ordered By: Jerica Mesa Diet: Low salt diet Activity on Discharge: No Running or jogging Stand Alone Forms: Patient Portal Discharge page Print Language: Armenian Care Plan Goals: Recover from her COPD She needs to be on prednisone 30 mg for 5 days and 20 mg for 5 more days-total taper until 08 24 2025 After which she will to continue to take her prednisone 10 mg home dose Patient needs to follow-up with primary Care, pulmonology, primary oncology at [facility] regarding goals of care and chemotherapy and further management Health Concerns: See above Plan of Treatment: See above Assessment: See above
[2025-08-14] MEDS: Heparin Sodium,Porcine Flush 50 UNITS/5 ML SYRINGE IVFLUSH (13:55)
== END 2025-08-14 15:03 | disposition skilled nursing facility (03) | DRG 190 ==
LOC: HO.ED 19:15 → HO.EDOVER 19:51 → HO.IMC 08-07 19:14
PROVIDERS: Family Medicine; Hospitalist; Registered Nurse Emergency; Admitting Provider Hospitalist; Emergency Provider Emergency Medicine; PCP Nurse Practitioner Family; Visit Provider Student in an Organized Health Care Education/Training Program
DX: J43.9 Emphysema, unspecified (principal); J96.21 Acute and chronic respiratory failure with hypoxia; J96.22 Acute and chronic respiratory failure with hypercapnia; C34.92 Malignant neoplasm of unspecified part of left bronchus or lung; I50.32 Chronic diastolic (congestive) heart failure; G47.33 Obstructive sleep apnea (adult) (pediatric); F39 Unspecified mood [affective] disorder; I11.0 Hypertensive heart disease with heart failure; I27.81 Cor pulmonale (chronic); I48.0 Paroxysmal atrial fibrillation; Z20.822 Contact with and (suspected) exposure to COVID-19; Z99.81 Dependence on supplemental oxygen; Z87.891 Personal history of nicotine dependence; Z79.01 Long term (current) use of anticoagulants; Z79.51 Long term (current) use of inhaled steroids; Z79.899 Other long term (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 therapy
CPT/HCPCS: 36415; 71046; 71275; 80048; 80053; 82803; 83735; 83880; 84145; 84443; 84484; 85025; 85027; 85610; 87502; 87635; 93005; 94640; 97116; 97163; 97530; 99285; J1642; J2919; J3475; Q9967

== ENCOUNTER → 2025-08-06 13:44 | Outpatient (BNV) | payer OTHER, SELFPAY | PROVIDERS: Emergency Provider Emergency Medicine; Visit Provider Radiology Diagnostic Radiology | DX: J43.9 Emphysema, unspecified (principal); R06.02 Shortness of breath | CPT/HCPCS: 71046; 71275 ==

== ENCOUNTER → 2025-08-06 13:44 | Outpatient (BNV) | payer OTHER, SELFPAY | PROVIDERS: Admitting Provider Hospitalist; Emergency Provider Emergency Medicine; Visit Provider Internal Medicine Cardiovascular Disease | DX: R00.0 Tachycardia, unspecified (principal) | CPT/HCPCS: 93010 ==

== ENCOUNTER → 2025-08-06 19:23 | Outpatient (BNV) | payer OTHER, SELFPAY | PROVIDERS: Admitting Provider Hospitalist; Emergency Provider Emergency Medicine; PCP Nurse Practitioner Family; Visit Provider Hospitalist | DX: J96.21 Acute and chronic respiratory failure with hypoxia (principal); J96.11 Chronic respiratory failure with hypoxia; J96.12 Chronic respiratory failure with hypercapnia; C34.92 Malignant neoplasm of unspecified part of left bronchus or lung; R91.1 Solitary pulmonary nodule | CPT/HCPCS: 99231 ==

== ENCOUNTER → 2025-08-06 19:23 | Outpatient (BNV) | payer OTHER, SELFPAY | PROVIDERS: Admitting Provider Hospitalist; Emergency Provider Emergency Medicine; PCP Nurse Practitioner Family; Visit Provider Hospitalist | DX: J96.21 Acute and chronic respiratory failure with hypoxia (principal); J44.1 Chronic obstructive pulmonary disease with (acute) exacerbation | CPT/HCPCS: 99223; 99232; 99233 ==

== ENCOUNTER 2025-08-28 09:27 | Outpatient (AMB) | payer OTHER, SELFPAY ==
[2025-08-28 09:30] VITALS: BP 120/56; PULSE 92; O2SAT 96; BMI 36.0
--- NOTE | 2025-08-28 09:30 | MHC.OFFVIS ---
Vital Signs 08/28/25 09:30 Height 5 ft 1 in Weight 190 lb 11.198 oz BMI 36.0 BP 120/56 L Blood Pressure Location Lt brachial Position Sitting Pulse 92 Pulse Source Pulse Oximeter Pulse Oximetry (%) 96 Oxygen Delivery Method Nasal Cannula Oxygen Flow Rate 4 Intake Visit Reasons: resp failure Fence Setter Required: No Accompanied by: Daughter Allergies fluoxetine Allergy (Severe, Verified 08/28/25 09:41) Irritable codeine (Codeine) Allergy (Intermediate, Verified 08/28/25 09:41) RESTLESS/RASH haloperidol (Haldol) Allergy (Intermediate, Verified 08/28/25 09:41) Palpitations HPI Comments Details: The patient is a 70-year-old woman with known history of COPD and chronic hypoxic and hypercarbic respiratory failure. She 1st did require a tracheostomy in the past and she had a prolonged hospitalization which she was able to be decannulated. She was then placed on noninvasive ventilation. The patient has been inconsistent with the usage. In January of this year the patient was admitted to the hospital with acute on chronic hypercarbic respiratory failure where her pCO2 was about 118 mmHg.. The patient was placed on noninvasive ventilation and her pH normalize and her average pCO2 was between 60-70. She was discharged to use her trilogy at home. At home she is still struggling with the noninvasive ventilator. She has a hard time getting used to it. Her [employer] company, [employer] will be performing overnight oximetry with an end-tidal CO2 to measure her see you to into appropriately adjust her noninvasive ventilator. She also has made mentioning that she has been more short of breath and she has had more hypoxia. In the office we did perform a 6 minutes walk test and she did require 2 L nasal cannula to maintain her pulse ox above 90%. Therefore, she will be using 3 L instead of to with activity and also with sleep. 04/15/2023 the patient is here for pulmonary follow-up visit. She still residing at the [facility]. She is using her trilogy noninvasive ventilator every night. However, she has been using more recently because she ended up in the hospital. She was having chest pressure sensation and dizziness. During the hospitalization at [facility] the patient states that she had an ABG done demonstrating a pCO2 58 and per report was okay. Therefore, will hold off on doing an ABG today. The patient has been fairly relatively well from a respiratory status. She does complaint of heaviness of the chest. On examination she is very diminished. Therefore likely has significant air trapping hyperinflation them every resulting in some chest pressure sensation. I did recommend she start using the trilogy with a sip and puff during the daytime to help her with the air trapping. The patient has also gained weight and that is also going to contribute to additional respiratory symptoms. The patient needs to start working on weight management with the help of the services provided. The patient is using her diuretics with good effect. No significant edema at this time. It is not clear if she is using the theophylline. She has been on multiple medications and has got to multiple institutions so therefore it is hard to know if those removed and if it was stopped for particular reason. We should recheck her theophylline levels if she is on theophylline. Otherwise restart the theophylline if she is off it and then recheck levels. She should stay within the low therapeutic range to help her with her severe COPD. Patient is using her oxygen at 3 L continues with good effect. Again, I reached out to the [employer], [employer], to rete she had uses sip and puff device that she can use during the daytime 06/17/2023 the patient is here for pulmonary follow-up visit. The patient has been doing well. She is looking now to move to a assisted. in the meantime she is using her noninvasive ventilator. The noninvasive ventilator has been affecting beneficial. We did have her undergo a venous blood gas in appears that her pH is stable. She understands that if she does move to a assisted she went to find a way to make sure that she continues use her noninvasive ventilator as prescribed. She continues on respiratory therapy. She continues oxygen supplementation at 3 L could would response. 09/20/2023 the patient has a telehealth visit today. Unfortunately she could not make it in from her residence. She has been more depressed lately. She has recently found out that she lost the services from her [facility]. There been with her for many years. In addition to that the patient has not been using her Trelegy ventilator. She is try to find out how long she can go without it. She was wondering if she can have blood work to see how well her CO2 is while she is not using it. However, I encouraged her to use it since we know that her baseline CO2 is already elevated and by using the ventilator she has better reserved in case she develops an exacerbation or an acute illness. The patient will start using her ventilator at nighttime. I did put him for blood work and she can always have the blood work done here or she can find out another means of doing a. But getting a blood gas will be difficult to do otherwise. The patient did recently have a respiratory illness with a virus. Was not COVID. She was not giving any prednisone or antibiotics. Her cough is not too bad. If the cough worsens with worsening congestion then using a antibiotic to minimize on the postviral bacterial infections would be reasonable. 12/23/2023 the patient is here for a pulmonary follow-up visit. Since we last spoke the patient did have a fall on her senior living. She fractured multiple ribs and was admitted to [facility] with acute on chronic hypercarbic respiratory failure. She was placed on BiPAP and was able to stabilize. She did not require invasive ventilation. The patient had not been using her noninvasive ventilator at the senior living. This is unfortunate. She understands the with her condition she relies on this therapy. The patient has been using now regularly since she was discharged from the hospital. She is looking to be placed in a assisted. Therefore, she is making the arrangements. We did have her undergo a venous blood gas today and her acid-base status is stable and pCO2 is back to her baseline. Her bicarbonate always will be elevated to try to compensate for the hypercarbia and right now is at 37. she does continue to use her respiratory therapy as prescribed. She is also using oxygen continuously throughout the day with good effect. Once the patient is out of the senior living to a assisted will see about getting pulmonary function studies and starting outpatient pulmonary rehabilitation. Also to note while she was at [facility] she did have a CT scan of the chest that was personally by me. She had multiple rib fractures on the left 1 which was displaced. Also has small subcentimeter pulmonary nodule that will follow-up in a year's time. 02/21/2024 the patient is here for pulmonary follow-up visit. The patient overall has been doing well. She did move out of the senior living in currently in a assisted. She is getting a lot of support. She is taking all her medications. Although, the theophylline 400 mg is not available. I will try sending her a different does see that was available and also will check theophylline levels. The patient has been using her noninvasive ventilator at nighttime. The therapy has been affecting beneficial. We did have her get blood work and it appears that her bicarb is down to 32 which is very encouraging. The patient also has been using her oxygen at 3 L continues will keep a go above 88%. The patient is able to increase it to 4 L if her oxygen is dropping below 88%. Will go ahead and request pulmonary function studies and plan for pulmonary rehabilitation at this time. Will follow-up in 3 months or sooner if any new issues arise. 05/24/2024 the patient is here for a pulmonary follow-up visit. She was recently at [facility]. There was an issue with her oxygen. Now she is back to her assisted. the having hard time regulating her oxygen. We did have her come in for 6 minute walk test. The patient needs 6 L of oxygen with activity and at least 2 L at rest. Although typically she needs more than 2 to keep her pulse ox above 90%. We did review her CT scan of the chest that she had while at [facility]. She has extensive emphysema which explains her very labile oxygen requirements. In addition to that she does have some pulmonary nodules that appear to have increased in size primarily in the left hemithorax. She will need a repeat CT scan in the next 3 months. She has minimal reserve. We did look at her previous PFTs demonstrating very severe COPD and severe diffusion impairment. however, the patient has been fairly well although she has had although severe disease. She has been using her noninvasive ventilator at nighttime. At least 6 hours. We did have her go for blood work including a venous gas demonstrating appears due to a baseline 61 mm of Hg. The patient does have some lower extremity edema. She will benefit from additional diuresis. In addition to that she is having increased wheezing chest tightness and cough. Therefore will send her a prednisone taper and also start an antibiotic. This will be to treat her for COPD exacerbation. She has participating in the pulmonary rehabilitation. She has fine the very affecting beneficial. She will continue for now. 07/06/2024 the patient is here for a pulmonary follow-up visit. She has been in an out of hospital. She has been trying to use her noninvasive ventilator more regularly. She understands it is a necessity for her to use it at least every night. She also continues with respiratory therapy. She has been responding well to the oxygen supplementation. Last blood gas was back the end of May demonstrating a pCO2 around 70 which is close to her baseline. She continues with respiratory therapy with good effect. Appears to have increasing lower extremity edema. Likely secondary to a component I will call pulmonale. Needs to continue with a low sodium diet and diuresis. CXR from 06/21/23 personally reviewed by me without any acute changes. 09/13/2024 the patient has a telehealth visit today. She is status post couple hospitalizations. Now she is at rehab and this is a telehealth. The patient initially was admitted to [facility] back at the end of June with acute on chronic respiratory failure. She was diagnosed with COVID a. During that admission she did have a CT a that I did evaluate. She did have an irregular nodular density in the left upper lobe likely infectious process although since his new and she is high risk for cancer we can not rule out malignancy. She was treated and then subsequently discharged back to her assisted. Subsequently after that she went to [facility]. The details are not available but she likely had a tachyarrhythmia. She did require cardioversion. Afterwards the patient was transferred to [facility] which is currently getting rehabilitation. She feels weak. She has a hard time walking. Her oxygen requirements are still about the same 3 L at rest and 6 L with activity. She is also having issues with her noninvasive ventilator which she is waking up short of breath. Therefore, will have her have a repeat 6 minute walk test while she is there she should also continue with multi disciplinary therapies in addition to that will talk to respiratory there to see if they can tweak her ventilator to a higher pressure to help her with those difficult times. The patient plans to go back to her assisted. 10/22/2024 the patient is here for hospital follow-up visit. She had been in the hospital with acute on chronic hypoxic and hypercarbic respiratory failure and subsequently went to [facility]. She is currently read some. She is not going back to the assisted. She is trying to feel better enough to be able to go to her daughter's. There she could have some assistance from with the family and also some medical assistance. But she is still not clear. She does use the noninvasive ventilator. She did get an placement while at rest own. She is tolerating well. Will have her get a blood gas to see what her CO2 is. In addition to that which she check her theophylline level since she has noticed some tachycardia. She continues to feel weak. She feels like her legs want to give out when she is ambulating. Strikes me that could be related to her CO2 as she has had issues with falls and weakness when her CO2 elevates. 11/15/2024 the patient is here for pulmonary follow-up visit. Since we last spoke she went to [facility] with worsening shortness of breath. There she did have a CT scan of the chest which I personally reviewed. This was done 11/02/20[address] she [address] a [address] scan here at [facility] in the summer of 2023 and she had another CT scan at [facility] in 12/17/2023. I did review all of them. She does have a left upper lobe pulmonary nodule that appears to be worsening. There is significant concerned with his nodule for a smoldering infection process such as a fungal infection could be a localized bacterial infection but could also be a malignant process. The patient understands that her lung capacity significantly limited and with end-stage pulmonary disease and we difficult to do any invasive or semi-invasive procedures for diagnostic purposes. Therefore, rather treat her empirically. Will go ahead and request blood work including galactomannan and other laboratories. And will go ahead and treat her for potential staph infection or fungal infection. Plan to repeat the CT scan a couple months. If the area still present then will have to discuss how to proceed. Again, the patient is high risk for any intervention. In the meantime she has been using the noninvasive ventilator. The ventilator has been affecting beneficial although she continues to have elevations in the CO2. Will have to adjusted accordingly. The patient also may have a component of sleep apnea and an in-lab sleep study may be helpful as well to further address any significant sleep apnea and subsequently asleep PAP titration study to properly treat her underlying sleep apnea. She will continue with current respiratory therapy as prescribed. She will continue with the oxygen as prescribed. 12/20/2024 the patient is here for a pulmonary follow-up visit. Overall she is doing well. She is moving out of bed some going with her daughter. She is excited. In the meantime she has been using her noninvasive ventilator every night. The therapy has been affecting beneficial although she feels like sometimes she wakes up breathless and sometimes her oxygen requirements are increased. We will request a download in order to be able to adjust the machine accordingly with the help of [employer]. In addition to that she was admitted briefly to [facility] with significant anemia. She was placed on iron and now she is a little constipated. She is going to monitor closely her anemia specially because of her significant respiratory disease the anemia will ultimately resulting significantly worsening respiratory symptoms. If we not able to adjust her noninvasive ventilator appropriately that we can always consider a titration study. She also had an abnormal CT scan back in October and we had requested repeat. In the meantime she went to [facility] she did have a chest x-ray which is reassuring. Demonstrating emphysema and chronic stable findings. 01/18/2025 the patient is here for a pulmonary follow-up visit. Overall she is doing better. She was sickly with flu-like symptoms but now she is back to her baseline. She is using her noninvasive ventilation at nighttime although she still trying to find the right mask. We did have a phone small air touch F20 mask available. Seems to fit well and I believe she will do better with a full mask so it does not make as much noise. The patient also has been using her respiratory therapy. I will send all her medications to the pharmacy. In addition to this the patient did have a CT scan of the chest that we personally certainly reviewed and compared to her previous CT from from June. It appears that the masslike density in the left upper lobe is getting bigger. It is concerning for malignancy specially since she was treated for fungal infections and she has been treated for infectious bacterial infections as well without any evidence of any improvement. Therefore, will go ahead and request a PET scan to see if there is any significant evidence of hypermetabolic activity. Any kind of biopsy would be dangerous because of her significant respiratory failure. We can also consider stereotactic radiation to the area if is concerning enough on the PET scan without a biopsy. Will plan to follow-up after her PET scan several weeks. 02/21/2025 the patient is here for a pulmonary follow-up visit. Overall the patient has been feeling much better from a respiratory status. She has been using her noninvasive ventilator the whole night sometimes up to 10 hours a day. This is helping her feel better overall. Her respiratory medications and regimen is seems to be stable and she is tolerating it. She is gaining weight and we did talk about that. She needs to work on portion control Lifestyle changes. In the meantime she did undergo a PET scan. We did personally review together. She did have an FDG activity of 8 of the area of the left upper lobe peripheral nodular density. Indeed is concerning. She was already treated empirically for aspergilloma and also treated with antibiotics. This area indeed is concerning for malignancy. The issue is that she does have significant chronic hypercarbic and hypoxic respiratory failure and any procedure will potentially high risk. We did talk about a CT-guided biopsy although would have to go to her breast tissue and could result in a pneumothorax and so peripheral. The other option will be navigational bronchoscopy robotic bronchoscopy under general anesthesia. Which she should be able to tolerate but the anesthesia is indeed concerning for worsening perioperative complications. Will go ahead and refer her to Interventional Pulmonary to see if any interventions could be considered for her. In the meantime will go ahead and treat her with Bactrim although she has not allergy. Want to make sure we treat for smoldering infection such as Nocardia which can manifest in this form. Therefore the patient will start Bactrim I put him for CAT scan for 6 weeks from now to see those any improving the area and also she will follow-up with intervention a pulmonary. 05/08/2025 the patient is here for a pulmonary follow-up visit. The patient has been having a very busy few months. She did follow-up with Interventional Pulmonary she was diagnosed with lung cancer. Now she is following closely with oncology and radiation oncology. She is going to be starting SBRT and then after that she is going to receive chemotherapy with immune therapy. The patient is not a candidate for surgical resection because her very limited respiratory capacity. She has been using her trilogy at nighttime. The noninvasive ventilator has been affecting beneficial. However she is having hard time tolerating the pressures and she is having hard time with hypoxia. I am going to talk to [employer] to see if we can switch her over to astral and also we can adjust her pressures accordingly. The patient will continue to use her respiratory medications as prescribed. She is having some chest congestion. I do believe that Ohtuvayre would be a good addition chronic bronchitis and the fact that she will be able to use any prednisone while on immune therapy. She is going to talk about it with her daughter and the let me know if she wants me to start the process of required thin the medication. The patient will return in 6-8 weeks. If she has any issues prior to that she will call for an earlier assessment. 06/26/2025 the patient is here for a pulmonary follow-up visit. She is status post SBRT. She has had issues with radiation pneumonitis. The patient has been on prednisone currently at 15 mg. She continues use her respiratory therapy and also her oxygen supplementation up to 6 L with activity. Although, even on the 6 L she is still desaturating down to the low 80s if not high 70s. She is also using the oxygen with her noninvasive ventilator, trilogy at nighttime. She is still having issues with the pressures are so high that is pushing the mask off her face. Makes it very uncomfortable for her to use. I did reach out to her [employer] company, [employer] and did send some adjustments decreasing her tidal volume increasing her maximum pressure is and also increasing the respiratory rate to try to maintain a certain minute ventilation. Will have her get blood work today. In view of her significant hypoxia will have to rule out possibility of radiation pneumonitis but also other conditions such as thromboembolic disease specially with her lung cancer she is a high risk for blood clots. The patient also did have a walking oximetry and she did require up to 6 L with activity. Will adjust her medications accordingly based on her x-ray and blood work. In the meantime she is waiting to get stabilized to be able to get a port in order to start chemotherapy. I am concerned with the degree of respiratory failure any procedure will be high risk. 07/25/2025 the patient is here for pulmonary follow-up visit. She was recently hospitalized at [facility] with worsening respiratory breathing. Her noninvasive ventilator was adjusted. She seems to be tolerating it better. She continues on the oxygen. She also was diuresed. Her volume status is better and she does take Lasix as needed if she does gained 2 lb in 24 hours a 3 lb in 48 hours. She did start recently chemotherapy. She seems to be tolerating the paclitaxel on the cisplatin. She has received the 1st dose. Although the port looks a little bit inflamed. Will go ahead and started on some doxycycline and also check some blood cultures just in case. She will call her oncologist to make sure that they can evaluate the port access. In the meantime the patient continues her respiratory therapy. She is tolerating it well. Still has dyspnea on exertion. Moderate severity. She is on 15 mg of prednisone. Her respiratory exam is reassuring. Will try to decrease her prednisone slowly down from 15 mg to 10 mg. Will plan to get blood work today. 08/28/2025 the patient is here for pulmonary follow-up visit. Overall she is doing okay. She was hospitalized after getting chemo with a COPD exacerbation and pneumonitis. She was treated with high-dose steroids in addition to antibiotics. She is now rehab. She is recovering. Although she has been more forgetful. She has not been using her noninvasive ventilator which is a concern. She understands that which she does not use the none invasive ventilator her CO2 increases and results in CO2 narcosis. Some of her memory gaps right now maybe 2 due to the fact that his already rising. She is already getting some tremors. If he does not start using it soon she went though going into worsening narcosis. I did make a note to the rehab for her to start using it more regularly. In the meantime the need to monitor her bicarbonate. If her bicarbonate breathing 40 they can provide her with some Diamox 250 mg x 1. She should continue with the oxygen. She did well on 2 L maintaining a pulse ox about 94%. She should keep her range of oximetry between 88-95% to minimize too many high numbers. When she ambulates she can be on 3-4 L to maintain a pulse ox in the mid 90s. The patient will follow-up with Oncology sometime mid August and figure out what to do next if they going to try her again on chemo find a more gentle chemotherapy or if they are going to hold off completely. In the meantime follow-up imaging studies to monitor the pulmonary nodules to make sure we follow the evolution. [facility] Medical History (Updated 08/22/25 @ 00:00 by Background Daemon) Lung cancer Pulmonary nodule 1 cm or greater in diameter Lung mass RITA (obstructive sleep apnea) Cor pulmonale Rib fractures Pulmonary nodule Tubular adenoma of colon (~2006) Osteopenia (~2012) Bronchopneumonia Chest pain Chronic respiratory alkalosis ILD (interstitial lung disease) CO2 retention Acute on chronic respiratory failure with hypoxia and hypercapnia Bipolar depression Eczema Limb swelling Insomnia Bronchitis Vasomotor rhinitis COPD (chronic obstructive pulmonary disease) Chronic respiratory failure Fall Acute metabolic encephalopathy Acute and chronic respiratory failure with hypercapnia Surgical History History of carpal tunnel surgery (~2000) History of ventral hernia repair (~2003) History of left inguinal hernia repair (~1995) History of tracheostomy (~2016) History of cataract surgery (~2018) History of colonoscopy Family History Other Hypertension Social History Household Members: Children Household Members Other:: Daughter, son-in-law, grandchildren Housing: House Housing Other:: assisted Are you a primary neonatal critical care nurse to a significant other at home: No Do you presently have visiting nurse or other home services: Yes (everyday, 3.5hrs/day) Alcohol intake: former Patient Tobacco Use Status: Former Tobacco user Tobacco use type: Cigarette Years Smoked: 20+ years e-Cigarette/Vaping Use: Never Used Second Hand Smoke Exposure: No Advance Directives Date on File: 11/30/21 service: No Current occupational status: disabled Review of Systems Const Reports fatigue, Denies night sweats and Reports weight gain ENT Denies change in voice, Denies lip swelling, Denies mouth pain, Reports nasal congestion, Reports nasal discharge and Denies tongue swelling Card Denies chest pain, Reports pedal edema, Reports dyspnea and Reports dyspnea on exertion Resp Denies change in phlegm color, Denies chest congestion, Reports cough, Reports dyspnea, Reports dyspnea on exertion and Reports wheezing GI Denies abdominal pain Musc Denies no additional complaints, Reports abnormal gait and Reports muscle weakness Skin/Breast Reports erythema and Reports skin swelling Neuro Denies Neuro-related abnormal movements, Reports abnormal gait, Reports memory loss and Reports tremor(s) Psych Reports depression and Reports memory loss Endo Reports fatigue Gerson/Lymph Denies easy bleeding and Denies lymphadenopathy Aller/Immun Denies lip swelling, Denies tongue swelling and Reports wheezing Physical Exam Vital Signs: Last Vital Signs Pulse 92 08/28/25 09:30 BP 120/56 L 08/28/25 09:30 Pulse Ox 96 08/28/25 09:30 Oxygen Delivery Method Nasal Cannula 08/28/25 09:30 Oxygen Flow Rate 4 08/28/25 09:30 BMI result Body Mass Index 36.0 Last Vital Signs Temp 98.0 F 08/09/25 11:32 Pulse 74 08/09/25 11:39 Resp 17 08/09/25 11:39 BP 126/55 L 08/09/25 11:32 Pulse Ox 94 08/09/25 11:32 O2 Del Method Oxymask 08/09/25 11:32 O2 Flow Rate 6 08/09/25 11:32 FiO2 60 08/08/25 23:27 Oxygen Flow Rate 6 08/06/25 13:53 BMI result Body Mass Index 32.0 Const General: alert HEENT Head: Yes normocephalic Neck Neck: Yes normal visual inspection, Yes full ROM and Yes no lymphadenopathy Chest Chest palpation & inspection: normal inspection of the chest Resp Effort & Inspection: normal respiratory effort and prolonged expiratory phase Auscultation: diminished lung sounds Cardio Rate: regular rate Rhythm: regular rhythm Heart sounds: S1 normal heart sound present and S2 normal heart sound present GI Palpation (GI): Soft to palpation and nontender Auscultation: normal bowel sounds Skin General skin exam: rashes and/or lesions noted Results Reviewed Results Reviewed: Assessment & Plan Assessment & Plan (1) COPD (chronic obstructive pulmonary disease): Code(s): J44.9 - Chronic obstructive pulmonary disease, unspecified Category: Medical Qualifiers: COPD type: emphysema Emphysema type: centrilobular Qualified Code(s): J43.2 - Centrilobular emphysema (2) Pulmonary nodule: Code(s): R91.1 - Solitary pulmonary nodule Category: Medical (3) Chronic respiratory failure: Code(s): J96.10 - Chronic respiratory failure, unspecified whether with hypoxia or hypercapnia Category: Medical Qualifiers: Respiratory failure complication: hypoxia and hypercapnia Qualified Code(s): J96.11 - Chronic respiratory failure with hypoxia; J96.12 - Chronic respiratory failure with hypercapnia (4) Insomnia: Code(s): G47.00 - Insomnia, unspecified Category: Medical Qualifiers: Insomnia type: primary Qualified Code(s): F51.01 - Primary insomnia (5) Respiratory failure: Code(s): J96.90 - Respiratory failure, unspecified, unspecified whether with hypoxia or hypercapnia Category: Medical Qualifiers: Chronicity: chronic Respiratory failure complication: hypoxia and hypercapnia Qualified Code(s): J96.11 - Chronic respiratory failure with hypoxia; J96.12 - Chronic respiratory failure with hypercapnia (6) RITA (obstructive sleep apnea): Code(s): G47.33 - Obstructive sleep apnea (adult) (pediatric) Category: Medical (7) Lung cancer: Code(s): C34.90 - Malignant neoplasm of unspecified part of unspecified bronchus or lung Category: Medical Qualifiers: Laterality: left Lung location: unspecified part of lung Qualified Code(s): C34.92 - Malignant neoplasm of unspecified part of left bronchus or lung (8) Chronic hypoxic respiratory failure: Code(s): J96.11 - Chronic respiratory failure with hypoxia Category: Medical Plan continue noninvasive ventilator use. Will use 10hrs a day completed SBRT and chemo/immune therapy holding paclitaxel.cisplatin after hospitalization after initial therapy. Will d/w oncology re: options. continue Breo continue Incruse continue Prednisone taper continue Ohtuvayre once the pt reviews the info and agrees to start oxygen at 2-3 liters/minute at rest and 3-4L/minute with activity to keep pox 88-95% weight management lasix as needed F/U 6-8 weeks Coding Level of Care Code Est Pt Level 5 (82604) Complex EM visit Add On G2211 Diagnoses Centrilobular emphysema J43.2 COPD type: emphysema Emphysema type: centrilobular Pulmonary nodule R91.1 Chronic respiratory failure with hypoxia and hypercapnia J96.11; J96.12 Respiratory failure complication: hypoxia and hypercapnia Primary insomnia F51.01 Insomnia type: primary Chronic respiratory failure with hypoxia and hypercapnia J96.11; J96.12 Chronicity: chronic Respiratory failure complication: hypoxia and hypercapnia RITA (obstructive sleep apnea) G47.33 Malignant neoplasm of left lung, unspecified part of lung C34.92 Laterality: left Lung location: unspecified part of lung Chronic hypoxic respiratory failure J96.11 Time Spent (min) 60
--- OUTSIDE RECORDS SUMMARY | 2025-08-28 10:19 | XMS_ITS | Encounter Summary ---
Author Organization [facility] Address [address] [place] [address] Care Team Providers Care Automotive Light Mechanic Name Role Phone Kinjal Barron MACHINE TOOL DRESSER Primary Care Provid er Encounter Details Date Type Department Care Team (Late st Contact Info) Description 11/09/2024 Lab Requisition [facility] - Main Lab [address] [facility] [place] [address] Janice Núñez MD [address] [place] [address] Chronic obstructive pulmonary disease, unspecified (CMS/HCC V24, [...] Care Team (Late st Contact Info) Description 09/16/2025 2:15 PM EDT Office Visit [facility] Hematology Oncology [address] [place] [address] Artem Lashanda Maria Luz, DO [address] [place] [address] documented as of this encounter Procedures Procedure [...] mmol/L LAB CHEMISTRY METHOD 11/12/2024 4:30 PM [facility] Potassium 4.1 3.5 - 5.5 mmol/L LAB CHEMISTRY METHOD 11/12/2024 4:30 PM [facility] Chloride 92(L) 96 - 110 mmol/L LAB CHEMISTRY METHOD 11/12/2024 4:30 PM [facility] CO2 43(HH) 21 - 32 mmol/L LAB CHEMISTRY METHOD 11/12/2024 4:30 PM [facility] Anion Gap 6 3 - 11 LAB CHEMISTRY METHOD 11/12/2024 4:30 PM [facility] Glucose 90 70 - 100 mg/dL LAB CHEMISTRY METHOD 11/12/2024 4:30 PM [facility] BUN 11 5 - 25 mg/dL LAB CHEMISTRY METHOD 11/12/2024 4:30 PM [facility] Creatinine 0.98 0.50 - 1.10 mg/dL LAB CHEMISTRY METHOD 11/12/2024 4:30 PM [facility] eGFR 62 >=60 mL/min/1. 73m2 LAB CHEMISTRY METHOD 11/12/2024 4:30 PM EST [facility] Comment:Calculation based on the Chronic Kidney Disease Epidemiology Collaboration (CKD-EPI) equation refit without adjustment for race. BUN/Creatinine Ratio 11.2 LAB CHEMISTRY METHOD 11/12/2024 4:30 PM [facility] Calcium 9.3 8.5 - 10.5 mg/dL LAB CHEMISTRY METHOD 11/12/2024 4:30 PM [facility] Blood Venous blood specimen / Unknown Venipuncture / Unknown 11/12/2024 8:41 AM EST 11/12/2024 11:35 AM EST us Janice Núñez MD LAB BLOOD ORDERABLES Final Resul t [facility] [address] [place] [address], [place] [phone] * (ABNORMAL) Complete blood count (11/12/2024 8:41 AM EST) WBC 6.1 4.8 - 10.8 K/mcL LAB HEMETOLOGY METHOD 11/12/2024 11:55 AM [facility] RBC 3.50(L) 3.80 - 4.80 M/mcL LAB HEMETOLOGY METHOD 11/12/2024 11:55 AM [facility] Hemoglobin 9.2(L) 11.5 - 16.0 g/dL LAB HEMETOLOGY METHOD 11/12/2024 11:55 AM [facility] Hematocrit 32.4(L) 35.0 - 47.0 % LAB HEMETOLOGY METHOD 11/12/2024 11:55 AM [facility] MCV 93.9 79.0 - 98.0 FL LAB HEMETOLOGY METHOD 11/12/2024 11:55 AM [facility] MCH 26.7(L) 27.0 - 32.0 pcg LAB HEMETOLOGY METHOD 11/12/2024 11:55 AM EST [facility] MCHC 28.4(L) 32.0 - 37.0 g/dL LAB HEMETOLOGY METHOD 11/12/2024 11:55 AM EST [facility] RDW 14.4 11.0 - 15.0 % LAB HEMETOLOGY METHOD 11/12/2024 11:55 AM [facility] Platelets 435(H) 130 - 400 K/mcL LAB HEMETOLOGY METHOD 11/12/2024 11:55 AM EST [facility] MPV 9.7 7.0 - 11.0 FL LAB HEMETOLOGY METHOD 11/12/2024 11:55 AM EST [facility] NRBC 0.0 <1.0 % LAB HEMETOLOGY METHOD 11/12/2024 11:55 AM [facility] NRBC Absolute 0.00 <0.10 K/mcL LAB HEMETOLOGY METHOD 11/12/2024 11:55 AM EST [facility] Blood Venous blood specimen / Unknown Venipuncture / Unknown 11/12/2024 8:41 AM EST 11/12/2024 11:35 AM EST us Janice Núñez MD LAB BLOOD ORDERABLES Final Resul t [facility] [address] [place] [address], documented in this encounter Visit Diagnoses Diagnosis Chronic obstructive pulmonary disease, unspecified (CMS/HCC V24, CMS/HCC V28) documented in this encounter Additional Health Concerns Infection Onset Date Last Indicated Resolved Time Tuberculosis Rule-Out 04/03/2025 04/03/20252024 3:00 PM EDT Respiratory Rule-Out 07/06/2025 07/06/2025 025 4:37 AM EDT COVID-19 Rule-Out 07/06/2025 07/06/2025 07/06/2025 4:37 AM EDT documented as of this encounter Care Teams Automotive Light Mechanic Relationship Specialty Start Date End Date Kinjal Barron FNP [address] [place] [address] PCP - General Family Medicine 03/06/25 documented as of this encounter
--- OUTSIDE RECORDS SUMMARY | 2025-08-28 10:19 | XMS_ITS | Clinical Summary ---
Author Organization [facility] Address [address] [place] [address] Care Team Providers Care Project Drilling Engineer Name Role Phone Debra Ji MD Primary Care Provider [phone] Allergies Active Allergy Reactions Criticality Noted Date [...] 0 Active zoster vaccine live, PF, (ZOSTAVAX) [id number] UNT/0.65ML injection Inject 0.65 mL under the [...] age to complete this topic Care Teams Project Drilling Engineer Relationship Specialty Start Date End Date Debra Ji MD PCP - General Internal Medicine 06/27/17
--- OUTSIDE RECORDS SUMMARY | 2025-08-28 10:19 | XMS_ITS | Encounter Summary ---
Author Organization [facility] Address [address] [place] [address] Care Team Providers Care Rag Boiler Name Role Phone Kinjal Barron UPS DRIVER Primary Care Provid er Encounter Details Date Type Department Care Team (Late st Contact Info) Description 11/03/2024 Lab Requisition [facility] - Main Lab [address] [facility] [place] [address] Janice Núñez MD [address] [place] [address] Chronic obstructive pulmonary disease, unspecified (CMS/HCC V24, [...] Description 09/16/2025 2:15 PM EDT Office Visit [facility] Hematology Oncology [address] [place] [address] Artem Lashandafroylan Maradiagaie, DO [address] [place] [address] documented as of this encounter Procedures Procedure [...] 73m2 LAB CHEMISTRY METHOD 11/05/2024 11:51 AM EST [facility] Comment:Calculation based on the [...] MD LAB BLOOD ORDERABLES Final Resul t [facility] [address] [place] [address], [place] [phone] * (ABNORMAL) Complete blood count (11/05/2024 8:13 [...] pcg LAB HEMETOLOGY METHOD 11/05/2024 11:00 AM EST [facility] MCHC 28.6(L) 32.0 - 37.0 g/dL LAB HEMETOLOGY METHOD 11/05/2024 11:00 AM [facility] RDW 14.5 11.0 - 15.0 % LAB HEMETOLOGY METHOD 11/05/2024 11:00 AM [facility] Platelets 429(H) 130 - 400 K/mcL LAB HEMETOLOGY METHOD 11/05/2024 11:00 AM EST [facility] MPV 9.5 7.0 - 11.0 FL LAB HEMETOLOGY METHOD 11/05/2024 11:00 AM [facility] NRBC 0.0 <1.0 % LAB HEMETOLOGY METHOD 11/05/2024 11:00 AM [facility] NRBC Absolute 0.00 <0.10 K/mcL LAB HEMETOLOGY METHOD 11/05/2024 11:00 AM [facility] Blood Venous blood specimen / Unknown Venipuncture / Unknown 11/05/2024 8:13 AM EST 11/05/2024 10:37 AM EST us Janice Núñez MD LAB BLOOD ORDERABLES Final Resul t [facility] [address] [place] [address], documented in this encounter Visit Diagnoses Diagnosis Chronic obstructive pulmonary disease, unspecified (CMS/HCC V24, CMS/HCC V28) documented in this encounter Additional Health Concerns Infection Onset Date Last Indicated Resolved Time Tuberculosis Rule-Out 04/03/2025 04/03/20252024 3:00 PM EDT Respiratory Rule-Out 07/06/2025 07/06/20252 025 4:37 AM EDT COVID-19 Rule-Out 07/06/2025 07/06/2025 07/06/2025 4:37 AM EDT documented as of this encounter Care Teams Rag Boiler Relationship Specialty Start Date End Date Kinjal Barron FNP [address] [place] [address] PCP - General Family Medicine 03/06/25 documented as of this encounter
--- OUTSIDE RECORDS SUMMARY | 2025-08-28 10:19 | XMS_ITS | Encounter Summary ---
Author Organization [facility] Address [address] [place] [address] Care Team Providers Care Extension Specialist Name Role Phone Kinjal Barron CLOTHING MAN Primary Care Provid er Encounter Details Date Type Department Care Team (Late st Contact Info) Description 10/27/2024 Lab Requisition [facility] - Main Lab [address] [facility] [place] [address] Janice Núñez MD [address] [place] [address] Chronic obstructive pulmonary disease, unspecified (CMS/HCC V24, [...] Description 09/16/2025 2:15 PM EDT Office Visit [facility] Hematology Oncology [address] [place] [address] Lashanda Mcgillie, DO [address] [place] [address] documented as of this encounter Procedures Procedure [...] mmol/L LAB CHEMISTRY METHOD 10/29/2024 2:01 PM [facility] Potassium 3.6 3.5 - 5.5 mmol/L LAB CHEMISTRY METHOD 10/29/2024 2:01 PM [facility] Chloride 91(L) 96 - 110 mmol/L LAB CHEMISTRY METHOD 10/29/2024 2:01 PM [facility] CO2 40(H) 21 - 32 mmol/L LAB CHEMISTRY METHOD 10/29/2024 2:01 PM [facility] Anion Gap 7 3 - 11 LAB CHEMISTRY METHOD 10/29/2024 2:01 PM [facility] Glucose 86 70 - 100 mg/dL LAB CHEMISTRY METHOD 10/29/2024 2:01 PM [facility] BUN 15 5 - 25 mg/dL LAB CHEMISTRY METHOD 10/29/2024 2:01 PM [facility] Creatinine 0.89 0.50 - 1.10 mg/dL LAB CHEMISTRY METHOD 10/29/2024 2:01 PM [facility] eGFR 70 >=60 mL/min/1. 73m2 LAB CHEMISTRY METHOD 10/29/2024 2:01 PM [facility] Comment:Calculation based on the Chronic Kidney Disease Epidemiology Collaboration (CKD-EPI) equation refit without adjustment for race. BUN/Creatinine Ratio 16.9 LAB CHEMISTRY METHOD 10/29/2024 2:01 PM [facility] Calcium 9.3 8.5 - 10.5 mg/dL LAB CHEMISTRY METHOD 10/29/2024 2:01 PM [facility] Blood Venous blood specimen / Unknown Venipuncture / Unknown 10/29/2024 8:00 AM EST 10/29/2024 11:30 AM EST us Janice Núñez MD LAB BLOOD ORDERABLES Final Resul t [facility] [address] [place] [address], [place] [phone] * (ABNORMAL) Complete blood count (10/29/2024 8:00 AM EST) WBC 6.3 4.8 - 10.8 K/mcL LAB HEMETOLOGY METHOD 10/29/2024 12:10 PM [facility] RBC 3.70(L) 3.80 - 4.80 M/mcL LAB HEMETOLOGY METHOD 10/29/2024 12:10 PM [facility] Hemoglobin 10.1(L) 11.5 - 16.0 g/dL LAB HEMETOLOGY METHOD 10/29/2024 12:10 PM [facility] Hematocrit 35.2 35.0 - 47.0 % LAB HEMETOLOGY METHOD 10/29/2024 12:10 PM [facility] MCV 94.1 79.0 - 98.0 FL LAB HEMETOLOGY METHOD 10/29/2024 12:10 PM [facility] MCH 27.0 27.0 - 32.0 pcg LAB HEMETOLOGY METHOD 10/29/2024 12:10 PM [facility] MCHC 28.7(L) 32.0 - 37.0 g/dL LAB HEMETOLOGY METHOD 10/29/2024 12:10 PM EST [facility] RDW 14.5 11.0 - 15.0 % LAB HEMETOLOGY METHOD 10/29/2024 12:10 PM [facility] Platelets 504(H) 130 - 400 K/mcL LAB HEMETOLOGY METHOD 10/29/2024 12:10 PM [facility] MPV 9.3 7.0 - 11.0 FL LAB HEMETOLOGY METHOD 10/29/2024 12:10 PM [facility] NRBC 0.0 <1.0 % LAB HEMETOLOGY METHOD 10/29/2024 12:10 PM [facility] NRBC Absolute 0.00 <0.10 K/mcL LAB HEMETOLOGY METHOD 10/29/2024 12:10 PM [facility] Blood Venous blood specimen / Unknown Venipuncture / Unknown 10/29/2024 8:00 AM EST 10/29/2024 11:30 AM EST us Janice Núñez MD LAB BLOOD ORDERABLES Final Resul t [facility] [address] [place] [address], documented in this encounter Visit Diagnoses Diagnosis Chronic obstructive pulmonary disease, unspecified (CMS/HCC V24, CMS/HCC V28) documented in this encounter Additional Health Concerns Infection Onset Date Last Indicated Resolved Time Tuberculosis Rule-Out 04/03/2025 04/03/20252024 3:00 PM EDT Respiratory Rule-Out 07/06/2025 07/06/2025 025 4:37 AM EDT COVID-19 Rule-Out 07/06/2025 07/06/2025 07/06/2025 4:37 AM EDT documented as of this encounter Care Teams Extension Specialist Relationship Specialty Start Date End Date Kinjal Barron FNP [address] [facility] [address] PCP - General Family Medicine 03/06/25 documented as of this encounter
--- OUTSIDE RECORDS SUMMARY | 2025-08-28 10:19 | XMS_ITS | Encounter Summary ---
Author Organization [facility] Address [address] [place] [address] Care Team Providers Care Engine Oiler Name Role Phone Kinjal Barron ASSESSMENT NURSE PRACTITIONER Primary Care Provid er Encounter Details Date Type Department Care Team (Late st Contact Info) Description 12/11/2024 Lab Requisition [facility] - Main Lab [address] [facility] [place] [address] Glenroy Goff MD [address] [place] [address], [address] Chronic obstructive pulmonary disease, unspecified (CMS/HCC [...] Description 09/16/2025 2:15 PM EDT Office Visit [facility] Hematology Oncology [address] [place] [address] Lashanda Mcgillie, DO [address] [place] [address] documented as of this encounter Procedures Procedure [...] AM [facility] eGFR 76 >=60 mL/min/1. 73m2 LAB CHEMISTRY METHOD 12/11/2024 11:11 AM EST [facility] Comment:Calculation based on the Chronic Kidney Disease Epidemiology Collaboration (CKD-EPI) equation refit without adjustment for race. BUN/Creatinine Ratio 20.5 LAB CHEMISTRY METHOD 12/11/2024 11:11 AM [facility] Calcium 8.6 8.5 - 10.5 mg/dL LAB CHEMISTRY METHOD 12/11/2024 11:11 AM [facility] Blood Venous blood specimen / Unknown Venipuncture / Unknown 12/11/2024 6:30 AM EST 12/11/2024 9:22 AM EST us Glenroy Goff MD LAB BLOOD ORDERABLES Final Resul t [facility] [address] [place] [address], * (ABNORMAL) Complete blood count (12/11/2024 6:30 [...] pcg LAB HEMETOLOGY METHOD 12/11/2024 11:11 AM EST [facility] MCHC 27.9(L) 32.0 - 37.0 g/dL LAB HEMETOLOGY METHOD 12/11/2024 11:11 AM [facility] RDW 15.7(H) 11.0 - 15.0 % LAB HEMETOLOGY METHOD 12/11/2024 11:11 AM EST [facility] Platelets 399 130 - 400 K/mcL LAB HEMETOLOGY METHOD 12/11/2024 11:11 AM EST [facility] MPV 10.0 7.0 - 11.0 FL LAB HEMETOLOGY METHOD 12/11/2024 11:11 AM [facility] NRBC 0.0 <1.0 % LAB HEMETOLOGY METHOD 12/11/2024 11:11 AM [facility] NRBC Absolute 0.00 <0.10 K/mcL LAB HEMETOLOGY METHOD 12/11/2024 11:11 AM [facility] Blood Venous blood specimen / Unknown Venipuncture / Unknown 12/11/2024 6:30 AM EST 12/11/2024 9:22 AM EST us Glenroy Goff MD LAB BLOOD ORDERABLES Final Resul t [facility] [address] [place] [address], documented in this encounter Visit Diagnoses Diagnosis Chronic obstructive pulmonary disease, unspecified (CMS/HCC V24, CMS/HCC V28) documented in this encounter Additional Health Concerns Infection Onset Date Last Indicated Resolved Time Tuberculosis Rule-Out 04/03/2025 04/03/20252024 3:00 PM EDT Respiratory Rule-Out 07/06/2025 07/06/20252 025 4:37 AM EDT COVID-19 Rule-Out 07/06/2025 07/06/2025 07/06/2025 4:37 AM EDT documented as of this encounter Care Teams Engine Oiler Relationship Specialty Start Date End Date Kinjal Barron FNP [address] [place] [address] PCP - General Family Medicine 03/06/25 documented as of this encounter
--- OUTSIDE RECORDS SUMMARY | 2025-08-28 10:19 | XMS_ITS | Encounter Summary ---
Author Organization [facility] Address [address] [place] [address] Care Team Providers Care Quality Control Director Name Role Phone Kinjal Barron MORTAR MAKER Primary Care Provid er Encounter Details Date Type Department Care Team (Late st Contact Info) Description 08/20/2025 Lab Requisition [facility] - Main Lab [address] [facility] [place] [address] Janice Núñez MD [address] [place] [address] Malignant neoplasm of unspecified part of left bronchus or lung (CMS/HCC V24, CMS/HCC V28); Respiratory failure, unspecified, unspecified whether with hypoxia or hypercapnia (CMS/HCC V24, CMS/HCC V28); Other long-term (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 therapy Social History Tobacco Use Types Packs/Day Years Used Date Smoking Tobacco: Former Cigarettes 2 40 0 12/30/1972 - 12/30/2006 Smokeless Tobacco: Never Comments:Quit 2017 Alcohol Use Standard Drinks/Week Comments Not Currently 0 (1 standard drink = 0.6 oz pur e alcohol) Interpersonal Safety Answer Date Record ed Physical Abuse Unrecognized value 07/06/2025 Verbal Abuse Unrecognized value 07/06/2025 Comments Unknown Sex and Gender Information [...] Cheryle Velazquez RN documented in this encounter Plan of Treatment Upcoming Encounters Date Type Department Care Team (Late st Contact Info) Description 09/16/2025 2:15 PM EDT Office Visit [facility] Hematology Oncology [address] [place] [phone] Lashanda Mcgill DO [address] [place] [address] documented as of this encounter Procedures Procedure Name Priority Date/Time Associated Diagnosis Comments VITAMIN D 25 HYDROXY Routine 08/20/2025 4:50 AM EDT Malignant neoplasm of unspecified part of left bronchus or lung (CMS/HCC V24, CMS/HCC V28) Respiratory failure, unspecified, unspecified whether with hypoxia or hypercapnia (CMS/HCC V24, CMS/HCC V28) 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 designer (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 therapy COMPLETE BLOOD COUNT Routine 08/20/2025 4:50 AM EDT Malignant neoplasm of unspecified part of left bronchus or lung (CMS/HCC V24, CMS/HCC V28) Respiratory failure, unspecified, unspecified whether with hypoxia or hypercapnia (CMS/HCC V24, CMS/HCC V28) 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 designer (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 therapy THYROID STIMULATING HORMONE Routine 08/20/2025 4:50 AM EDT Malignant neoplasm of unspecified part of left bronchus or lung (CMS/HCC V24, CMS/HCC V28) Respiratory failure, unspecified, unspecified whether with hypoxia or hypercapnia (CMS/HCC V24, CMS/HCC V28) Other long-term (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 therapy HEMOGLOBIN A1C Routine 08/20/2025 4:50 AM EDT Malignant neoplasm of unspecified part of left bronchus or lung (CMS/HCC V24, CMS/HCC V28) Respiratory failure, unspecified, unspecified whether with hypoxia or hypercapnia (CMS/HCC V24, CMS/HCC V28) Other long-term (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 therapy FOLATE Routine 08/20/2025 4:50 AM EDT Malignant neoplasm of unspecified part of left bronchus or lung (CMS/HCC V24, CMS/HCC V28) Respiratory failure, unspecified, unspecified whether with hypoxia or hypercapnia (CMS/HCC V24, CMS/HCC V28) 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 designer (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 therapy VITAMIN B12 Routine 08/20/2025 4:50 AM EDT Malignant neoplasm of unspecified part of left bronchus or lung (CMS/HCC V24, CMS/HCC V28) Respiratory failure, unspecified, unspecified whether with hypoxia or hypercapnia (CMS/HCC V24, CMS/HCC V28) Other long-term (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 therapy COMPREHENSIVE METABOLIC PANEL Routine 08/20/2025 4:50 AM EDT Malignant neoplasm of unspecified part of left bronchus or lung (CMS/HCC V24, CMS/HCC V28) Respiratory failure, unspecified, unspecified whether with hypoxia or hypercapnia (CMS/HCC V24, CMS/HCC V28) Other long-term (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 therapy documented in this encounter Results * Vitamin D 25 hydroxy (08/20/2025 4:50 AM EDT) [facility] Vit D, 25-Hydroxy 37.7 30.0 - 80.0 ng/mL LAB CHEMISTRY METHOD 08/20/2025 12:17 PM EDT [facility] Blood Venous blood specimen / Unknown Venipuncture / Unknown 08/20/2025 4:50 AM EDT 08/20/2025 9:32 AM EDT us Janice Núñez MD LAB BLOOD ORDERABLES Final Resul t Performing Organization Address City/[facility]/ZIP Co de Phone Number [facility] [address] [place] [address], [place] [phone] * Vitamin B12 (08/20/2025 4:50 AM EDT) [facility] Vitamin B-12 592 250 - 900 pcg/mL LAB CHEMISTRY METHOD 08/20/2025 11:03 AM EDT [facility] Blood Venous blood specimen / Unknown Venipuncture / Unknown 08/20/2025 4:50 AM EDT 08/20/2025 9:32 AM EDT us Janice Núñez MD LAB BLOOD ORDERABLES Final Resul t [facility] [address] [place] [address], [place] [phone] * Hemoglobin A1c (08/20/2025 4:50 AM EDT) [facility] Hemoglobin A1C 5.8 <6.5 % LAB CHEMISTRY METHOD 08/20/2025 12:16 PM EDT [facility] Mean Bld Glu Estim. 120 mg/dL LAB CHEMISTRY METHOD 08/20/2025 12:16 PM EDT [facility] Blood Venous blood specimen / Unknown Venipuncture / Unknown 08/20/2025 4:50 AM EDT 08/20/2025 9:32 AM EDT us Janice Núñez MD LAB BLOOD ORDERABLES Final Resul t Performing Organization Address [facility]/ZIP Co de Phone Number [facility] [address] [place] [address], [place] [phone] * Thyroid stimulating hormone (08/20/2025 4:50 AM EDT) TSH 2.01 0.40 - 4.00 mcIU/mL LAB CHEMISTRY METHOD 08/20/2025 12:18 PM EDT [facility] Blood Venous blood specimen / Unknown Venipuncture / Unknown 08/20/2025 4:50 AM EDT 08/20/2025 9:32 AM EDT us Janice Núñez MD LAB BLOOD ORDERABLES Final Resul t Performing Organization Address [facility] Co de Phone Number [facility] [address] [place] [address], [place] [phone] * (ABNORMAL) Folate (08/20/2025 4:50 AM EDT) Folate 19.1(H) 2.8 - 17.0 ng/ml LAB CHEMISTRY METHOD 08/20/2025 11:03 AM EDT [facility] Blood Venous blood specimen / Unknown Venipuncture / Unknown 08/20/2025 4:50 AM EDT 08/20/2025 9:32 AM EDT us Janice Núñez MD LAB BLOOD ORDERABLES Final Resul t [facility] [address] [place] [address], * (ABNORMAL) Comprehensive metabolic panel (08/20/2025 4:50 AM EDT) Sodium 140 133 - 145 mmol/L LAB CHEMISTRY METHOD 08/20/2025 11:04 AM [facility] Potassium 3.3(L) 3.5 - 5.5 mmol/L LAB CHEMISTRY METHOD 08/20/2025 11:04 AM [facility] Chloride 102 96 - 110 mmol/L LAB CHEMISTRY METHOD 08/20/2025 11:04 AM [facility] CO2 31 21 - 32 mmol/L LAB CHEMISTRY METHOD 08/20/2025 11:04 AM [facility] Anion Gap 7 3 - 11 LAB CHEMISTRY METHOD 08/20/2025 11:04 AM [facility] Glucose 81 70 - 100 mg/dL LAB CHEMISTRY METHOD 08/20/2025 11:04 AM [facility] BUN 19 5 - 25 mg/dL LAB CHEMISTRY METHOD 08/20/2025 11:04 AM [facility] Creatinine 0.78 0.50 - 1.10 mg/dL LAB CHEMISTRY METHOD 08/20/2025 11:04 AM [facility] eGFR 81 >=60 mL/min/1. 73m2 LAB CHEMISTRY METHOD 08/20/2025 11:04 AM [facility] Comment:Calculation based on the Chronic Kidney Disease Epidemiology Collaboration (CKD-EPI) equation refit without adjustment for race. BUN/Creatinine Ratio 24.4 LAB CHEMISTRY METHOD 08/20/2025 11:04 AM [facility] Calcium 8.4(L) 8.5 - 10.5 mg/dL LAB CHEMISTRY METHOD 08/20/2025 11:04 AM EDT [facility] AST (SGOT) 18 10 - 42 unit/L LAB CHEMISTRY METHOD 08/20/2025 11:04 AM [facility] ALT (SGPT) 29 10 - 60 unit/L LAB CHEMISTRY METHOD 08/20/2025 11:04 AM [facility] Alkaline Phosphatase 78 42 - 121 unit/L LAB CHE[facility]STR[facility] 08/20/2025 [facility] Total Protein 5.9(L) 6.0 - 8.0 g/dL LAB CHEMISTRY METHOD 08/20/2025 11:04 AM [facility] Albumin 3.2 3.2 - 5.0 g/dL LAB CHEMISTRY METHOD 08/20/2025 11:04 AM [facility] Total Bilirubin 0.1 0.0 - 1.4 mg/dL LAB CHEMISTRY METHOD 08/20/2025 11:04 AM [facility] Blood Venous blood specimen / Unknown Venipuncture / Unknown 08/20/2025 4:50 AM EDT 08/20/2025 9:32 AM EDT us Janice Núñez MD LAB BLOOD ORDERABLES Final Resul t [facility] [address] [place] [address], * (ABNORMAL) Complete blood count (08/20/2025 4:50 AM EDT) WBC 7.6 4.8 - 10.8 K/mcL LAB HEMETOLOGY METHOD 08/20/2025 9:58 AM EDT [facility] RBC 3.80 3.80 - 4.80 M/mcL LAB HEMETOLOGY METHOD 08/20/2025 9:58 AM [facility] Hemoglobin 10.5(L) 11.5 - 16.0 g/dL LAB HEMETOLOGY METHOD 08/20/2025 9:58 AM EDT [facility] Hematocrit 34.8(L) 35.0 - 47.0 % LAB HEMETOLOGY METHOD 08/20/2025 9:58 AM EDT [facility] MCV 92.1 79.0 - 98.0 FL LAB HEMETOLOGY METHOD 08/20/2025 9:58 AM EDT [facility] MCH 27.8 27.0 - 32.0 pcg LAB HEMETOLOGY METHOD 08/20/2025 9:58 AM EDT [facility] MCHC 30.2(L) 32.0 - 37.0 g/dL LAB HEMETOLOGY METHOD 08/20/2025 9:58 AM EDT [facility] RDW 16.4(H) 11.0 - 15.0 % LAB HEMETOLOGY METHOD 08/20/2025 9:58 AM EDT [facility] Platelets 306 130 - 400 K/mcL LAB HEMETOLOGY METHOD 08/20/2025 9:58 AM EDT [facility] MPV 9.1 7.0 - 11.0 FL LAB HEMETOLOGY METHOD 08/20/2025 9:58 AM EDT [facility] NRBC 0.0 <1.0 % LAB HEMETOLOGY METHOD 08/20/2025 9:58 AM EDT [facility] NRBC Absolute 0.00 <0.10 K/mcL LAB HEMETOLOGY METHOD 08/20/2025 9:58 AM EDT [facility] Blood Venous blood specimen / Unknown Venipuncture / Unknown 08/20/2025 4:50 AM EDT 08/20/2025 9:32 AM EDT us Janice Núñez MD LAB BLOOD ORDERABLES Final Resul t [facility] [address] [place] [address], documented in this encounter Visit Diagnoses Diagnosis Malignant neoplasm of unspecified part of left bronchus or lung ([facility] V24, [facility] V28) Respiratory failure, unspecified, unspecified whether with hypoxia or hypercapnia (CMS/[facility] V24, [facility] V28) 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
--- OUTSIDE RECORDS SUMMARY | 2025-08-28 10:19 | XMS_ITS ---
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 ([facility] V24, [facility] V28) 04/30/2025 Age-related osteoporosis wit h current pathological fracture of right femur with delayed healing 04/24/2025 Tachycardia 04/24/2025 Lung nodule 04/03/2025 Decreased hearing 01/09/2025 Urinary incontinence 01/09/2025 Seizure ([facility] V24, [facility] V28) 12/23/2024 Anemia 12/14/2024 Atopic dermatitis 10/06/2024 Cor pulmonale, acute ([facility] V24, [facility] V28) 10/06/2024 Acidosis 10/06/2024 Pneumonia 10/06/2024 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 09/21/2024 Overview (04/24/2025): IVAP Acute on chronic diastolic ( congestive) heart failure ([facility] V24, [facility] V28) 09/21/2024 Unspecified age-related cataract 09/21/2024 Unspecified atrial flutter ([facility] V24, [facility] V28) 09/21/2024 Congestive heart failure ([facility] [place]24, [facility] V 28) 08/23/2024 Post-traumatic stress disorder, unspecified 07/30 Somatic syndrome finding 08/23/2024 Pleuritic pain 11/23/2023 Primary localized osteoarthrosis of ankle and fo ot 09/08/2023 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 Date [...] isode depressed, mild or moderate severity, unspecified ([facility] V24, [facility] V28) 10/09/2017 Acute on chronic respiratory failure with hypoxemia ([facility] [place], [facility] V28) 08/02/2017 Overview (09/12/2024): Historical tracheostomy Other secondary pulmonary hy pertension ([facility] V24, [facility] V28) 08/02/2017 Pulmonary emphysema ([facility] V24, [facility] V28) 0 07/29/2017 Thrombocytosis 06/27/2017 Dependence on supplemental oxygen 06/15/2017 Bipolar disorder ([facility] [place]24, [facility] V28) 05/28 Gastroesophageal reflux disease without esophagi tis 06/08/2017 Insomnia 06/08/2017 Retinal hemorrhage 06/08/2017 Current Treatment and Therapy Plans PACLitaxel / CARBOplatin - Non-Small Cell Lung Cancer / Thymomas and Thymic Carcinomas* Plan Start Date:06/25/2025 Plan Provider:Lashanda Mcgill DO Linked Problems 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 Current Radiation Episodes * Radiation Therapy: LungOverview* First Treatment Date Latest Treatment Date Treatment Site Technique Goal Episode Provider 05/28/2025 06/18/2025 Lung Curative Idalia Zhou NP * Linked Problems Treatment Courses* Course 1 05/28/2025 - 06/18/2025 Treatment Sites Treatment Period Fraction Dose Fractions Total Dose Left lung 05/28/2025 - 06/18/2025 400 / 400 cGy 6 ,000 / 6,000 cGy Lifetime Dose Tracking * Chemical Lifetime Dose Automatic Entry Manual Entr y Fluoro Time 4.12 minutes 4.12 minutes 0 minutes Air Kerma 242.5 mGy 242.5 mGy 0 mGy
--- OUTSIDE RECORDS SUMMARY | 2025-08-28 10:19 | XMS_ITS | Encounter Summary ---
Author Organization [facility] Address [address] [place] [address] Care Team Providers Care Medical Office Scheduler Name Role Phone Kinjal Barron WATER MAIN PIPE LAYER Primary Care Provid er Encounter Details Date Type Department Care Team (Late st Contact Info) Description 08/27/2025 Lab Requisition [facility] - Main Lab [address] [facility] [place] [address] Janice Núñez MD [address] [place], [place] [id number] Malignant neoplasm of unspecified part of left bronchus or lung (CMS/HCC V24, CMS/HCC V28); Chronic respiratory failure with hypercapnia (CMS/HCC V24, CMS/HCC V28) Social History Tobacco [...] Description 09/16/2025 2:15 PM EDT Office Visit [facility] Hematology Oncology [address] [place] [phone] Lashanda Mcgill, [address] [place] [address] Scheduled Orders Name Type Priority Associated Diagnoses Orde r Schedule Complete blood count Lab Routine Malignant neoplasm of unspecified part of left bronchus or lung (CMS/HCC V24, CMS/HCC V28) Chronic respiratory failure with hypercapnia (CMS/HCC V24, CMS/HCC V28) Ordered: 08/27/2025 Basic metabolic panel Lab Routine Malignant neoplasm of unspecified part of left bronchus or lung (CMS/HCC V24, CMS/HCC V28) Chronic respiratory failure with hypercapnia (CMS/HCC V24, CMS/HCC V28) Ordered: 08/27/2025 documented as of this encounter Visit Diagnoses Diagnosis Malignant neoplasm of unspecified part of left bronchus or lung (CMS/HCC V24, CMS/HCC V28) Chronic respiratory failure with hypercapnia (CMS/HCC V24, CMS/HCC V28) documented in this encounter Additional Health Concerns Assessment Noted Time PHQ-9 Depression Total Score: 1 07/19/20 25 5:04 PM EDT documented as of this encounter Care Teams Medical Office Scheduler Relationship Specialty Start Date End Date Kinjal Barron FNP [address] [place] [address] PCP - General Family Medicine 03/06/25 documented as of this encounter
--- OUTSIDE RECORDS SUMMARY | 2025-08-28 10:19 | XMS_ITS | Encounter Summary ---
Author Organization [facility] Address [address] [place] [address] Care Team Providers Care Shift Mgr Name Role Phone Kinjal Barron MEDICAL CENTER MANAGER Primary Care Provid er Encounter Details Date Type Department Care Team (Late st Contact Info) Description 11/20/2024 Lab Requisition [facility] - Main Lab [address] [facility] [place] [address] Janice Núñez MD [address] [place] [address] Chronic obstructive pulmonary disease, unspecified (CMS/HCC V24, [...] Description 09/16/2025 2:15 PM EDT Office Visit [facility] [place] [facility] Hematology Oncology [address] [place] [address] Lashanda Mcgillie, DO [address] [place] [address] documented as of this encounter Procedures Procedure [...] mmol/L LAB CHEMISTRY METHOD 11/20/2024 10:56 AM [facility] Potassium 4.3 3.5 - 5.5 mmol/L LAB CHEMISTRY METHOD 11/20/2024 10:56 AM [facility] Chloride 87(L) 96 - 110 mmol/L LAB CHEMISTRY METHOD 11/20/2024 10:56 AM [facility] CO2 44(HH) 21 - 32 mmol/L LAB CHEMISTRY METHOD 11/20/2024 10:56 AM [facility] Anion Gap 3 3 - 11 LAB CHEMISTRY METHOD 11/20/2024 10:56 AM [facility] Glucose 83 70 - 100 mg/dL LAB CHEMISTRY METHOD 11/20/2024 10:56 AM [facility] BUN 17 5 - 25 mg/dL LAB CHEMISTRY METHOD 11/20/2024 10:56 AM [facility] Creatinine 0.95 0.50 - 1.10 mg/dL LAB CHEMISTRY METHOD 11/20/2024 10:56 AM [facility] eGFR 65 >=60 mL/min/1. 73m2 LAB CHEMISTRY METHOD 11/20/2024 10:56 AM EST [facility] Comment:Calculation based on the Chronic Kidney Disease Epidemiology Collaboration (CKD-EPI) equation refit without adjustment for race. BUN/Creatinine Ratio 17.9 LAB CHEMISTRY METHOD 11/20/2024 10:56 AM [facility] Calcium 9.2 8.5 - 10.5 mg/dL LAB CHEMISTRY METHOD 11/20/2024 10:56 AM [facility] Blood Venous blood specimen / Unknown Venipuncture / Unknown 11/20/2024 6:24 AM EST 11/20/2024 9:31 AM EST us Janice Núñez MD LAB BLOOD ORDERABLES Final Resul t [facility] [address] [place] [address], [place] [phone] * (ABNORMAL) Complete blood count (11/20/2024 6:24 AM EST) WBC 8.4 4.8 - 10.8 K/mcL LAB HEMETOLOGY METHOD 11/20/2024 10:10 AM [facility] RBC 3.70(L) 3.80 - 4.80 M/mcL LAB HEMETOLOGY METHOD 11/20/2024 10:10 AM [facility] Hemoglobin 9.5(L) 11.5 - 16.0 g/dL LAB HEMETOLOGY METHOD 11/20/2024 10:10 AM [facility] Hematocrit 34.1(L) 35.0 - 47.0 % LAB HEMETOLOGY METHOD 11/20/2024 10:10 AM [facility] MCV 93.4 79.0 - 98.0 FL LAB HEMETOLOGY METHOD 11/20/2024 10:10 AM [facility] MCH 26.0(L) 27.0 - 32.0 pcg LAB HEMETOLOGY METHOD 11/20/2024 10:10 AM EST [facility] MCHC 27.9(L) 32.0 - 37.0 g/dL LAB HEMETOLOGY METHOD 11/20/2024 10:10 AM EST [facility] RDW 14.9 11.0 - 15.0 % LAB HEMETOLOGY METHOD 11/20/2024 10:10 AM EST [facility] Platelets 512(H) 130 - 400 K/mcL LAB HEMETOLOGY METHOD 11/20/2024 10:10 AM EST [facility] MPV 9.8 7.0 - 11.0 FL LAB HEMETOLOGY METHOD 11/20/2024 10:10 AM EST [facility] NRBC 0.0 <1.0 % LAB HEMETOLOGY METHOD 11/20/2024 10:10 AM [facility] NRBC Absolute 0.00 <0.10 K/mcL LAB HEMETOLOGY METHOD 11/20/2024 10:10 AM EST [facility] Blood Venous blood specimen / Unknown Venipuncture / Unknown 11/20/2024 6:24 AM EST 11/20/2024 9:31 AM EST us Janice Núñez MD LAB BLOOD ORDERABLES Final Resul t [facility] [address] [place] [address], documented in this encounter Visit Diagnoses Diagnosis Chronic obstructive pulmonary disease, unspecified (CMS/HCC V24, CMS/HCC V28) documented in this encounter Additional Health Concerns Infection Onset Date Last Indicated Resolved Time Tuberculosis Rule-Out 04/03/2025 04/03/20252024 3:00 PM EDT Respiratory Rule-Out 07/06/2025 07/06/20252 025 4:37 AM EDT COVID-19 Rule-Out 07/06/2025 07/06/2025 07/06/2025 4:37 AM EDT documented as of this encounter Care Teams Shift Mgr Relationship Specialty Start Date End Date Kinjal Barron FNP [address] [place] [address] PCP - General Family Medicine 03/06/25 documented as of this encounter
--- OUTSIDE RECORDS SUMMARY | 2025-08-28 10:19 | XMS_ITS | Clinical Summary ---
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 4 Active incontinence pad, liner, disp pad Incontinence Supply Disposable (Disposable Liners) Misc Use 3 times a day as needed for incontinence.= 4 Active albuterol 2.5 mg /3 mL [...] 1 (one) time each day. 4 Active cholecalciferol (VITAMIN D-3) 50 mcg (2,000 unit) capsule Take 1 capsule (2,000 Units total) by mouth 1 (one) time each day in the morning. 4 Active fluocinolone acetonide oiL 0.01 % drops Administer 4 drops into affected ear(s) every other day if needed (other). 4 Active fluticasone furoate-vilante roL (Breo Ellipta) 200-25 mcg/dose inhaler INHALE 1 PUFF DIRECTED ONCE A DAY 4 Active gabapentin (NEURONTIN) 100 mg capsule Take 1 capsule (100 mg total) by mouth 3 (three) times a day. 4 Active lamoTRIgine (LaMICtal) 150 mg tablet Take 2 tablets (300 mg total) by mouth at bedtime. 4 Active lamoTRIgine (LaMICtal) 200 mg tablet Take 1 tablet (200 mg total) by mouth 1 (one) time each day in the morning. 4 Active mirtazapine (REMERON) 15 mg tablet Take 1 tablet (15 mg total) by mouth at bedtime. 4 Active montelukast (SINGULAIR) 10 mg tablet Take 1 tablet (10 mg total) by mouth 1 (one) time each day. 4 Active pantoprazole (PROTONIX) 40 mg EC tablet Take 1 tablet (40 mg total) by mouth 1 (one) time each day. 30 minutes before breakfast daily 4 Active salicylic acid (T/LYNN) 3 % shampoo Apply one drop every 24-48 hours as needed. 4 Active theophylline (MANDY-24) 300 mg 24 hr capsule Take 1 capsule (300 mg total) by mouth 2 (two) times a day. Active vilazodone (VIIBRYD) 40 mg tablet Take 1 tablet (40 mg total) by mouth 1 (one) time each day in the morning. 4 Active furosemide (LASIX) 40 mg tablet Take 1 tablet (40 mg total) by mouth 1 (one) time each day. 90 each 1 4 Active Additional Information Patient taking differently: 20 mgoral Daily, Reported on 05/14/2025 fluticasone propionate (FLONASE) 50 mcg/actuation nasal spray Administer 1 spray into each nostril 2 (two) times a day. Shake gently. Before first use, prime pump. After use, clean tip and replace cap. 16 g 3 4 Active metoprolol succinate (TOPROL-XL) 100 mg 24 hr tablet Take 1 tablet (100 mg total) by mouth 1 (one) time each day. Do not crush or chew. 30 each 11 4 025 Active albuterol HFA (PROAIR HFA ; PROVENTIL HFA ; VENTOLIN HFA) 90 mcg/actuation inhaler Inhale 2 puffs by mouth every 4 (four) hours if needed (cough). 17 g 3 4 Active loratadine (CLARITIN) 10 mg tablet Take 1 tablet (10 mg total) by mouth 1 (one) time each day. Active propylene glycol/peg 400/PF (SYSTANE, PF, OPHT) Administer into affected eye(s). Active ipratropium-alb uteroL (DUONEB) 0.5-2.5 mg/3 mL nebulizer solutionIndicat ions:Chronic obstructive pulmonary disease, unspecified COPD type (CMS/HCC V24, CMS/HCC V28),Chronic respiratory failure with hypercapnia (CMS/HCC V24, CMS/HCC V28) Take 3 mL by nebulization 2 (two) times a day if needed for wheezing. 360 mL 2 5 026 Active lidocaine-prilo kyra (EMLA) 2.5-2.5 % cream Apply to port site 1 hour prior to each time port is accessed 30 g 1 5 Active dexAMETHasone (DECADRON) 4 mg tabletIndicatio ns:Squamous cell carcinoma of left lung (CMS/HCC V24, CMS/HCC V28) Take 8 mg (two tablets) once daily, starting the day after treatment, for three days (days 2-4). Take in the morning with food. 30 tablet 1 5 Active apixaban (Eliquis) 5 mg tablet Take 1 tablet (5 mg total) by mouth 2 (two) times a day. 5 026 Active prochlorperazin e (COMPAZINE) 10 mg tablet Take 1 tablet (10 mg total) by mouth every 6 (six) hours if needed for nausea. 60 tablet 3 5 025 Active docusate sodium (COLACE) 100 mg capsule Take 1 capsule (100 mg total) by mouth 2 (two) times a day. Active senna (SENOKOT) 8.6 mg tablet Take 1 tablet (8.6 mg total) by mouth 1 (one) time each day. Active hydrocortisone 2.5 % cream Apply topically 2 (two) times a day. 30 g 5 026 Active lactulose (Enulose) solution Take 15 mL (10 g total) by mouth 1 (one) time each day if needed (constipation). 450 mL 5 025 Active Problems Problem Noted Date Diagnosed Date Acute on chronic respiratory failure with hypoxia and hypercapnia ([facility] V24, [facility] V28) 07/06/2025 Squamous cell carcinoma of l eft lung ([facility] V24, [facility] V28) 04/30/2025 Age-related osteoporosis wit h current pathological fracture of right femur with delayed healing 04/24/2025 Tachycardia 04/24/2025 Lung nodule 04/03/2025 Decreased hearing 01/09/2025 Urinary incontinence 01/09/2025 Seizure ([facility] V24, [facility] V28) 12/23/2024 Anemia 12/14/2024 Atopic dermatitis 10/06/2024 Cor pulmonale, acute ([facility] V24, [facility] V28) 10/06/2024 Acidosis 10/06/2024 Pneumonia 10/06/2024 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 09/21/2024 Overview (04/24/2025): IVAP Acute on chronic diastolic ( congestive) heart failure ([facility] V24, [facility] V28) 09/21/2024 Unspecified age-related cataract 09/21/2024 Unspecified atrial flutter ([facility] V24, [facility] V28) 09/21/2024 Congestive heart failure ([facility] V24, [facility] V 28) 08/23/2024 Post-traumatic stress disorder, unspecified 07/30 Somatic syndrome finding 08/23/2024 Pleuritic pain 11/23/2023 Primary localized osteoarthrosis of ankle and fo ot 09/08/2023 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 [...] isode depressed, mild or moderate severity, unspecified ([facility] V24, [facility] V28) 10/09/2017 Acute on chronic respiratory failure with hypoxemia ([facility] V24, [facility] V28) 08/02/2017 Overview (09/12/2024): Historical tracheostomy Other secondary pulmonary hy pertension ([facility] V24, [facility] V28) 08/02/2017 Pulmonary emphysema ([facility] V24, [facility] V28) 0 07/29/2017 Thrombocytosis 06/27/2017 Dependence on supplemental oxygen 06/15/2017 Bipolar disorder ([facility] V24, [facility] V28) 05/28 Gastroesophageal reflux disease without esophagi tis 06/08/2017 Insomnia 06/08/2017 Retinal hemorrhage 06/08/2017 Encounters Date Type Department Care Team Description 08/27/2025 Lab Requisition [facility] [address] [place] [address] Janice Núñez MD Malignant neoplasm of unspecified part of left bronchus or lung ([facility]/HCC V24, [facility]/HCC V28); Chronic respiratory failure with hypercapnia ([facility]/HCC V24, [facility]/HCC V28) 08/20/2025 Lab Requisition [facility] [address] [place] [id number] Janice Núñez MD Malignant neoplasm of unspecified part of left bronchus or lung ([facility]/HCC V24, [facility]/HCC V28); Respiratory failure, unspecified, unspecified whether with hypoxia or hypercapnia ([facility]/HCC V24, [facility]/HCC V28); Other termite helper (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 therapy 08/09/2025 Telephone [facility] [address] [place] [phone] Lashanda Mcgill DO 08/07/2025 Telephone [facility] [address] [place] [phone] Debbie Salomon MA 08/01/2025 10:25 AM EDT - 08/01/2025 11:59 PM EDT Hospital Encounter [facility] [address] [place] [phone] Debra Loya, DEVORA Squamous cell carcinoma of left lung ([facility] V24, [facility] V28) Discharge Disposition: Home or Self Care 07/30/2025 Telephone [facility] [address] [place] [phone] Lashanda Mcgill, 07/22/2025 Telephone [facility] [address] [place] [phone] 07/19/2025 9:23 AM EDT - 07/19/2025 11:59 PM EDT Hospital Encounter [facility] [address] [place] [phone] Squamous cell carcinoma of left lung ([facility]/HCC V24, [facility]/HCC V28) (Primary Dx) Discharge Disposition: Home or Self Care 07/19/2025 Social Work [facility] [address] [place] [phone] Tika DuarteRASHMI 07/16/2025 2:45 PM EDT Office Visit [facility] [address] [place] [phone] Lashanda Mcgill DO Squamous cell carcinoma of left lung ([facility]/HCC V24, [facility]/HCC V28) (Primary Dx); Chronic respiratory failure with hypercapnia ([facility] V24, [facility] V28) 07/16/2025 1:52 PM EDT - 07/16/2025 11:59 PM EDT Hospital Encounter [facility] [address] [place] [phone] Idalia Zhou, DILMA Squamous cell carcinoma of left lung ([facility]/HCC V24, [facility] V28) (Primary Dx) Discharge Disposition: Home or Self Care 07/10/2025 Telephone [facility] [address] [place] [phone] Lashanda Mcgill DO 07/09/2025 12:11 PM EDT - 07/09/2025 11:59 PM EDT Hospital Encounter [facility] [address] [place] [phone] [facility]) Discharge Disposition: Home or Self Care 07/05/2025 9:44 PM EDT - 07/07/2025 1:04 PM EDT Hospital Encounter [facility] [address] [place] [phone] Emani Olivarez MD Jones, Christopher, MD Bell, Alistair A, MD Shortness of breath (Primary Dx) Discharge Disposition: Home-Health Care [facility] 06/27/2025 Telephone [facility] [address] [place] [phone] Martine Tovar MA 06/25/2025 11:45 AM EDT Office Visit [facility] [address] [place] [phone] Sallie Valdez PA Squamous cell carcinoma of left lung ([facility]/HCC V24, CMS/HCC V28) (Primary Dx); Chronic respiratory failure with hypercapnia ([facility]/HCC V24, [facility]/HCC V28); Mild anemia 06/18/2025 10:50 AM EDT - 06/18/2025 11:59 PM EDT Hospital Encounter [facility] [address] [place] [phone] Idalia Zhou NP NSCLC of left lung ([facility]/HCC V24, [facility]/HCC V28) (Primary Dx) Discharge Disposition: Home or Self Care 06/18/2025 10:25 AM EDT - 06/18/2025 11:59 PM EDT Hospital Encounter [facility] [address] [place] [phone] Discharge Disposition: Home or Self Care 06/17/2025 10:50 AM EDT - 06/17/2025 11:59 PM EDT Hospital Encounter [facility] [address] [place] [phone] Saeid Miles MD NSCLC [facility] left lung [facility] V28) (Primary Dx) Discharge Disposition: Home or Self Care 06/17/2025 10:39 AM EDT - 06/17/2025 11:59 PM EDT Hospital Encounter [facility] [address] [place] [phone] Discharge Disposition: Home or Self Care 06/14/2025 10:45 AM EDT - 06/14/2025 11:59 PM EDT Hospital Encounter [facility] [address] [place] [phone] Discharge Disposition: Home or Self Care 06/13/2025 10:29 AM EDT - 06/13/2025 11:59 PM EDT Hospital Encounter [facility] [address] [place] [phone] Discharge Disposition: Home or Self Care 06/12/2025 10:41 AM EDT - 06/12/2025 11:59 PM EDT Hospital Encounter [facility] [address] [place] [phone] Discharge Disposition: Home or Self Care 06/11/2025 10:33 AM EDT - 06/11/2025 11:59 PM EDT Hospital Encounter [facility] [address] [place] [phone] Discharge Disposition: Home or Self Care 06/10/2025 10:50 AM EDT - 06/10/2025 11:59 PM EDT Hospital Encounter [facility] [address] [place] [phone] Saeid Miles MD NSCLC of left lung (CMS/HCC V24, CMS/HCC V28) (Primary Dx) Discharge Disposition: Home or Self Care 06/10/2025 10:44 AM EDT - 06/10/2025 11:59 PM EDT Hospital Encounter [facility] [address] [place] [phone] Discharge Disposition: Home or Self Care 06/07/2025 10:45 AM EDT - 06/07/2025 11:59 PM EDT Hospital Encounter [facility] [address] [place] [phone] Discharge Disposition: Home or Self Care 06/06/2025 10:26 AM EDT - 06/06/2025 11:59 PM EDT Hospital Encounter [facility] [address] [place] [phone] Discharge Disposition: Home or Self Care 06/05/2025 10:45 AM EDT - 06/05/2025 11:59 PM EDT Hospital Encounter [facility] [address] [place] [phone] Discharge Disposition: Home or Self Care 06/04/2025 10:45 AM EDT - 06/04/2025 11:59 PM EDT Hospital Encounter [facility] [address] [place] [phone] Discharge Disposition: Home or Self Care 06/03/2025 11:46 AM EDT - 06/03/2025 11:59 PM EDT Hospital Encounter [facility] X[facility] [address] [place] [phone] NSCLC of left lung (CMS/HCC V24, CMS/HCC V28) Discharge Disposition: Home or Self Care 06/03/2025 10:50 AM EDT - 06/03/2025 11:59 PM EDT Hospital Encounter [facility] [address] [place] [phone] Saeid Miles MD NSCLC of left lung (CMS/HCC V24, CMS/[facility] V28) (Primary Dx) Discharge Disposition: Home or Self Care 06/03/2025 10:45 AM EDT - 06/03/2025 11:59 PM EDT Hospital Encounter [facility] [address] [place] [phone] Discharge Disposition: Home or Self Care 05/30/2025 10:39 AM EDT - 05/30/2025 11:59 PM EDT Hospital Encounter [facility] [address] [place] [phone] Discharge Disposition: Home or Self Care 05/28/2025 11:45 AM EDT - 05/28/2025 11:59 PM EDT Hospital Encounter [facility] [address] [place] [phone] Katya Barnes MD Discharge Disposition: Home or Self Care 05/28/2025 11:26 AM EDT - 05/28/2025 11:59 PM EDT Hospital Encounter [facility] [address] [place] [phone] Discharge Disposition: Home or Self Care from Last 3 Months Immunizations Immunization Administration Dates Next Due Influenza Quadravalent, MDCK [...] Comments Depression 10/09/2017 DX:Depression Bipolar I disorder ([facility] V24, [facility] V28) 06/10/2017 DX:Bipolar I disorder (HCC) Chronic obstructive pulmonar y disease ([facility] V24, [facility] V28) 07/29/2017 DX:Chronic obstructive pulm onary disease ([facility]), will bipap Chronic respiratory failure with hypercapnia ([facility] V24, [facility] V28) 08/02/2017 DX:Chronic resp iratory failure with hypercapnia ([facility]), uses trelegy machine/ will bring dos Dependence [...] Arrhythmia Afib , hx Emphysema of lung ([facility] V 24, [facility] V28) per daughter HL (hearing loss) wears hearing aids Full dentures Lung cancer ([facility] V24, [facility] V28) 03/2025 Asthma 1111 Psychiatric illness Family [...] Description 09/16/2025 2:15 PM EDT Office Visit [facility] [address] [place] [phone] Lashanda Mcgill, DO [address] [place] [address] Health Maintenance Due Date Last Done Comments DTaP,Tdap,and Td Vaccines (1 - Tdap) 1973 RSV Immunization Adult Patients (1 - Risk 60-74 years 1-dose series) 2014 Medicare Annual Wellness Visit 10/30/2022 Social Influencers of Health Screening 10/30/2022 Zoster Vaccines (2 of 2) 06/19/2024 04/24/2024 COVID-19 Vaccine ( - season) 2025 04/30/2024, 04/24/2024, 04/07/2022, Additional history exists Influenza Vaccine (#1) 2025 , 09/05/2018, 08/24/2015, Additional history exists Breast Cancer Screening 03/22/2026 03/22/20 24, 03/21/2024, 02/16/2023, Additional history exists Falls Risk Assessment 07/19/2026 07/19/2025, 024 Hypertension/CHF/CAD Annual BMP Blood Test 08/20/2026 08/20/2025, 07/16/2025, 07/07/2025, Additional history exists Cholesterol Screening (Lipid Panel) 02/08/2029 02/09/2024 Colorectal Cancer Screening: Colonoscopy 04/27/2029 04/27/2024 Osteoporosis Screening (Bone Density Screening) 03/22/2034 03/22/2024, 03/21/2024 Hepatitis C Screening Completed 02/09/2024 Pneumococcal Vaccine: 50+ Years Completed 04/30/2024, 04/24/2024, 08/24/2015 Depression Screening Completed 07/19/2025, 04/16/20 24 HIB Vaccines Aged Out No longer eligi [...] this topic Medical Devices Implanted Type Area Welder Apprentice Arc Device Identifier Shelf Expiration Date Model / Serial / Lot Port Pwr Isp Attach 6f Interm [place] - [id number] Implanted:Qty : 1 on 07/09/2025 by Jesica Henderson MD at [facility] Central/Per ipheral Catheters and Ports Right: Internal Jugular CR BARD PERIPHERAL VASCULAR [id number] 09/27/2025 [id number] / / [id number] Marker Cobra Superlock - Sna - [id number] Implanted:Qty : 1 on 04/03/2025 by Justine Wong MD at [facility] Imaging Implants Left: Lung COVIDIEN SUPERDIMENSION [id number] 08/27/2028 [id number] / [id number] / [id number] Description:LEFT UPPER LOBE Procedures Procedure Name Priority Date/Time Associated Diagnosis Comments VITAMIN D 25 HYDROXY Routine 08/20/2025 4:50 AM EDT Malignant neoplasm of unspecified part of left bronchus or lung (CMS/HCC V24, CMS/HCC V28) Respiratory failure, unspecified, unspecified whether with hypoxia or hypercapnia (CMS/HCC V24, CMS/HCC V28) Other nursing home (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 therapy VITAMIN B12 Routine 08/20/2025 4:50 AM EDT Malignant neoplasm of unspecified part of left bronchus or lung (CMS/HCC V24, CMS/HCC V28) Respiratory failure, unspecified, unspecified whether with hypoxia or hypercapnia (CMS/HCC V24, CMS/HCC V28) Other termite helper (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 therapy HEMOGLOBIN A1C Routine 08/20/2025 4:50 AM EDT Malignant neoplasm of unspecified part of left bronchus or lung (CMS/HCC V24, CMS/HCC V28) Respiratory failure, unspecified, unspecified whether with hypoxia or hypercapnia (CMS/HCC V24, CMS/HCC V28) Other nursing home (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 therapy THYROID STIMULATING HORMONE Routine 08/20/2025 4:50 AM EDT Malignant neoplasm of unspecified part of left bronchus or lung (CMS/HCC V24, CMS/HCC V28) Respiratory failure, unspecified, unspecified whether with hypoxia or hypercapnia (CMS/HCC V24, CMS/HCC V28) Other termite helper (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 therapy FOLATE Routine 08/20/2025 4:50 AM EDT Malignant neoplasm of unspecified part of left bronchus or lung (CMS/HCC V24, CMS/HCC V28) Respiratory failure, unspecified, unspecified whether with hypoxia or hypercapnia (CMS/HCC V24, CMS/HCC V28) Other nursing home (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 therapy COMPREHENSIVE METABOLIC PANEL Routine 08/20/2025 4:50 AM EDT Malignant neoplasm of unspecified part of left bronchus or lung (CMS/HCC V24, CMS/HCC V28) Respiratory failure, unspecified, unspecified whether with hypoxia or hypercapnia (CMS/HCC V24, CMS/HCC V28) Other termite helper (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 therapy COMPLETE BLOOD COUNT Routine 08/20/2025 4:50 AM EDT Malignant neoplasm of unspecified part of left bronchus or lung (CMS/HCC V24, CMS/HCC V28) Respiratory failure, unspecified, unspecified whether with hypoxia or hypercapnia (CMS/HCC V24, CMS/HCC V28) Other nursing home (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 therapy CBC WITH AUTO DIFFERENTIAL Routine 07/16/2025 3:54 [...] TREATMENT SUMMARY Routine 05/28/2025 11:49 AM EDT COLONOSCOPY Routine 04/27/2024 DEPRESSION SCREENING Routine 04/16/2024 [facility] SCREENING DIGITAL Routine 03/22/2024 8:50 AM EDT Encounter for screening mammogram for malignant neoplasm of breast [facility] DEXA AXIAL SKELETON Routine 03/22/2024 8:14 AM EDT Encounter for screening for osteoporosis HEPATITIS C SCREENING Routine 02/09/2024 FALLS RISK ASSESSMENT Routine 02/09/2024 LIPID PANEL Routine 02/09/2024 from Last 3 Months or Most Recently Relevant to Health Maintenance Results * Vitamin D 25 hydroxy (08/20/2025 4:50 AM EDT) [facility] Vit D, 25-Hydroxy 37.7 30.0 - 80.0 ng/mL LAB CHEMISTRY METHOD 08/20/2025 12:17 PM EDT [facility] Blood Venous blood specimen / Unknown Venipuncture / Unknown 08/20/2025 4:50 AM EDT 08/20/2025 9:32 AM EDT us Janice Núñez MD LAB BLOOD ORDERABLES Final Resul t [facility] [address] [place] [address], * (ABNORMAL) Complete blood count (08/20/2025 4:50 AM EDT) [facility] WBC 7.6 4.8 - 10.8 K/mcL LAB HEMETOLOGY METHOD 08/20/2025 9:58 AM EDT [facility] RBC 3.80 3.80 - 4.80 M/[facility] LAB HEMETOLOGY METHOD 08/20/2025 9:[address] [facility] Hemoglobin 10.5(L) 11.5 - 16.0 g/dL LAB HEMETOLOGY METHOD 08/20/2025 9:[address] [facility] Hematocrit 34.8(L) 35.0 - 47.0 % LAB HEMETOLOGY METHOD 08/20/2025 9:58 AM EDT [facility] MCV 92.1 79.0 - 98.0 FL LAB HEMETOLOGY METHOD 08/20/2025 9:[address] [facility] MCH 27.8 27.0 - 32.0 pcg LAB HEMETOLOGY METHOD 08/20/2025 9:[address] [facility] MCHC 30.2(L) 32.0 - 37.0 g/dL LAB HEMETOLOGY METHOD 08/20/2025 9:58 AM EDT [facility] RDW 16.4(H) 11.0 - 15.0 % LAB HEMETOLOGY METHOD 08/20/2025 9:58 AM EDT [facility] Platelets 306 130 - 400 K/mcL LAB HEMETOLOGY METHOD 08/20/2025 9:58 AM EDT [facility] [facility] LAB MPV 9.1 7.0 - 11.0 [place] LAB HEMETOLOGY METHOD 08/20/2025 9:58 AM EDT [facility] NRBC 0.0 <1.0 % LAB HEMETOLOGY METHOD 08/20/2025 9:58 AM EDT [facility] NRBC Absolute 0.00 <0.10 K/mcL LAB HEMETOLOGY METHOD 08/20/2025 9:58 AM EDT [facility] Blood Venous blood specimen / Unknown Venipuncture / Unknown 08/20/2025 4:50 AM EDT 08/20/2025 9:32 AM EDT us Janice Núñez MD LAB BLOOD ORDERABLES Final Resul t Performing Organization Address City/[facility]/ZIP Co de Phone Number [facility] [address] [place] [address], [place] [phone] * Thyroid stimulating hormone (08/20/2025 4:50 AM EDT) TSH 2.01 0.40 - 4.00 mcIU/mL LAB CHEMISTRY METHOD 08/20/2025 12:18 PM EDT [facility] Blood Venous blood specimen / Unknown Venipuncture / Unknown 08/20/2025 4:50 AM EDT 08/20/2025 9:32 AM EDT us Janice Núñez MD LAB BLOOD ORDERABLES Final Resul t [facility] [address] [place] [address], [place] [phone] * Hemoglobin A1c (08/20/2025 4:50 AM EDT) [facility] Hemoglobin A1C 5.8 <6.5 % LAB CHEMISTRY METHOD 08/20/2025 12:16 PM EDT [facility] Mean Bld Glu Estim. 120 mg/dL LAB CHEMISTRY METHOD 08/20/2025 12:16 PM EDT [facility] Blood Venous blood specimen / Unknown Venipuncture / Unknown 08/20/2025 4:50 AM EDT 08/20/2025 9:32 AM EDT us Janice Núñez MD LAB BLOOD ORDERABLES Final Resul t Performing Organization Address [facility]/ZIP Co de Phone Number [facility] [address] [place] [address], [place] [phone] * (ABNORMAL) Folate (08/20/2025 4:50 AM EDT) [facility] Folate 19.1(H) 2.8 - 17.0 ng/ml LAB CHEMISTRY METHOD 08/20/2025 11:03 AM EDT [facility] Blood Venous blood specimen / Unknown Venipuncture / Unknown 08/20/2025 4:50 AM EDT 08/20/2025 9:32 AM EDT us Janice Núñez MD LAB BLOOD ORDERABLES Final Resul t [facility] [address] [place] [address], [place] [phone] * Vitamin B12 (08/20/2025 4:50 AM EDT) [facility] Vitamin B-12 592 250 - 900 pcg/mL LAB CHEMISTRY METHOD 08/20/2025 11:03 AM EDT [facility] Blood Venous blood specimen / Unknown Venipuncture / Unknown 08/20/2025 4:50 AM EDT 08/20/2025 9:32 AM EDT us Janice Núñez MD LAB BLOOD ORDERABLES Final Resul t [facility] [address] [place] [address], * (ABNORMAL) Comprehensive metabolic panel (08/20/2025 4:50 AM EDT) Only the most recent of3 resultswithin the time period is included. Sodium 140 133 - 145 mmol/L LAB CHEMISTRY METHOD 08/20/2025 11:[address] [facility] Potassium 3.3(L) 3.5 - 5.5 mmol/L LAB CHEMISTRY METHOD 08/20/2025 11:[address] [facility] Chloride 102 96 - 110 mmol/L LAB CHEMISTRY METHOD 08/20/2025 11:[address] [facility] CO2 31 21 - 32 mmol/L LAB CHEMISTRY METHOD 08/20/2025 11:[address] [facility] Anion Gap 7 3 - 11 LAB CHEMISTRY METHOD 08/20/2025 11:[address] [facility] Glucose 81 70 - 100 mg/dL LAB CHEMISTRY METHOD 08/20/2025 11:[address] [facility] BUN 19 5 - 25 mg/dL LAB CHEMISTRY METHOD 08/20/2025 11:[address] [facility] Creatinine 0.78 0.50 - 1.10 mg/dL LAB CHEMISTRY METHOD 08/20/2025 11:[address] [facility] eGFR 81 >=60 mL/min/1. 73m2 LAB CHEMISTRY METHOD 08/20/2025 11:[address] [facility] Comment:Calculation based on the Chronic Kidney Disease Epidemiology Collaboration (CKD-EPI) equation refit without adjustment for race. BUN/Creatinine Ratio 24.4 LAB CHEMISTRY METHOD 08/20/2025 11:[address] [facility] Calcium 8.4(L) 8.5 - 10.5 mg/dL LAB CHEMISTRY METHOD 08/20/2025 11:[address] [facility] AST (SGOT) 18 10 - 42 unit/L LAB CHEMISTRY METHOD 08/20/2025 11:[address] [facility] ALT (SGPT) 29 10 - 60 unit/L LAB CHEMISTRY METHOD 08/20/2025 11:[address] [facility] Alkaline Phosphatase 78 42 - 121 unit/L LAB CHEMISTRY METHOD 08/20/2025 11:[address] [facility] Total Protein 5.9(L) 6.0 - 8.0 g/dL LAB CHEMISTRY METHOD 08/20/2025 11:[address] [facility] Albumin 3.2 3.2 - 5.0 g/dL LAB CHEMISTRY METHOD 08/20/2025 11:[address] [facility] Total Bilirubin 0.1 0.0 - 1.4 mg/dL LAB CHEMISTRY METHOD 08/20/2025 11:[address] [facility] Blood Venous blood specimen / Unknown Venipuncture / Unknown 08/20/2025 4:50 AM EDT 08/20/2025 9:32 AM EDT us Janice Núñez MD LAB BLOOD ORDERABLES Final Resul t [facility] [address] [place] [address], * (ABNORMAL) CBC auto differential (07/16/2025 3:54 PM EDT) Only the most recent of3 resultswithin the time period is included. WBC 6.7 4.8 - 10.8 K/[facility] LAB HEMETOLOGY METHOD 07/16/2025 4:[address] [facility] RBC 4.20 3.80 - 4.80 M/mcL LAB HEMETOLOGY METHOD 07/16/2025 4:[address] [facility] Hemoglobin 11.8 11.5 - 16.0 g/dL LAB HEMETOLOGY METHOD 07/16/2025 4:[address] [facility] Hematocrit 39.8 35.0 - 47.0 % LAB HEMETOLOGY METHOD 07/16/2025 4:[address] [facility] MCV 94.1 79.0 - 98.0 FL LAB HEMETOLOGY METHOD 07/16/2025 4:[address] [facility] MCH 27.9 27.0 - 32.0 pcg LAB HEMETOLOGY METHOD 07/16/2025 4:[address] [facility] MCHC 29.6(L) 32.0 - 37.0 g/dL LAB HEMETOLOGY METHOD 07/16/2025 4:[address] [facility] RDW 15.9(H) 11.0 - 15.0 % LAB HEMETOLOGY METHOD 07/16/2025 4:[address] [facility] Platelets 416(H) 130 - 400 K/mcL LAB HEMETOLOGY METHOD 07/16/2025 4:[address] [facility] MPV 9.2 7.0 - 11.0 FL LAB HEMETOLOGY METHOD 07/16/2025 4:[address] [facility] NRBC 0.0 <1.0 % LAB HEMETOLOGY METHOD 07/16/2025 4:[address] [facility] NRBC Absolute 0.00 <0.10 K/mcL LAB HEMETOLOGY METHOD 07/16/2025 4:[address] [facility] Neutrophils Relative 86.6 % LAB HEMETOLOGY METHOD 07/16/2025 4:[address] [facility] Lymphocytes Relative 5.1 % LAB HEMETOLOGY METHOD 07/16/2025 4:[address] [facility] Monocytes Relative 6.4 % LAB HEMETOLOGY METHOD 07/16/2025 4:[address] [facility] Eosinophils Relative 0.3 % LAB HEMETOLOGY METHOD 07/16/2025 4:[address] [facility] Basophils Relative 0.6 % LAB HEMETOLOGY METHOD 07/16/2025 4:[address] [facility] Immature Granulocytes Relative 1.0 % LAB HEMETOLOGY METHOD 07/16/2025 4:[address] [facility] Neutrophils Absolute 5.80 1.50 - 7.00 K/mcL LAB HEMETOLOGY METHOD 07/16/2025 4:[address] [facility] Lymphocytes Absolute 0.34(L) 1.00 - 5.00 K/mcL LAB HEMETOLOGY METHOD 07/16/2025 4:[address] [facility] Monocytes Absolute 0.43 0.20 - 1.00 K/mcL LAB HEMETOLOGY METHOD 07/16/2025 4:[address] [facility] Eosinophils Absolute 0.02 0.00 - 0.50 K/mcL LAB HEMETOLOGY METHOD 07/16/2025 4:[address] [facility] Basophils Absolute 0.04 0.00 - 0.20 K/mcL LAB HEMETOLOGY METHOD 07/16/2025 4:[address] [facility] Immature Granulocytes Absolute 0.07(H) 0.00 - 0.03 K/mcL LAB HEMETOLOGY METHOD 07/16/2025 4:[address] [facility] Blood Venous blood specimen / Unknown Venipuncture / Unknown 07/16/2025 3:54 PM EDT 07/16/2025 4:33 PM EDT Lashanda Jaffeuliffe LAB BLOOD ORDERABLES Final Result Performing Organization Address [facility]/ZIP Co de Phone Number [facility] [address] [place] [address], [place] [phone] * Magnesium (07/16/2025 3:54 PM EDT) Only the most recent of3 resultswithin the time period is included. Magnesium 2.2 1.9 - 2.6 mg/dL LAB CHEMISTRY METHOD 07/16/2025 5:07 PM EDT [facility] Blood Venous blood specimen / Unknown Venipuncture / Unknown 07/16/2025 3:54 PM EDT 07/16/2025 4:32 PM EDT Lashanda Jaffeuliffe LAB BLOOD ORDERABLES Final Result Performing Organization Address [facility] de Phone Number [facility] [address] [place] [address], [place] [phone] * IR Insert Tunneled CVAD w Subq [...] Signed Date: 07/09/2025 15:22 ET Workstation ID: [id number] Transcribed By: Self Edit Transcribed Date: 07/09/2025 [...] and placed within the pocket. An 8 Uzbek peel-away sheath with a hemostatic valve placed [...] Signed Date: 07/09/2025 15:22 ET Workstation ID: [id number] Transcribed By: Self Edit Transcribed Date: 07/09/2025 15:21 ET us Sallie TABARES IMG IR PROCEDURES Final Resul t * ECG-Annotated (07/08/2025) us Provider Onbase ECG ORDERABLES Final Result * Lavender tube (07/07/2025 5:50 AM EDT) [facility] Extra Tube Hold for add-ons. 07/07/2025 8:01 AM EDT [facility] Comment:Auto resulted. Blood Venous blood specimen / Unknown Venipuncture / Unknown 07/07/2025 5:50 AM EDT 07/07/2025 6:28 AM EDT Sathish Erwin MD LAB BLOOD ORDERABLES Final Re sult [facility] [address] [place] [address], [place] [phone] * (ABNORMAL) Basic metabolic panel (07/07/2025 5:50 AM EDT) Only the most recent of2 resultswithin the time period is included. [facility] Sodium 140 133 - 145 mmol/L LAB CHEMISTRY METHOD 07/07/2025 7:34 AM EDT [facility] Potassium 4.0 3.5 - 5.5 mmol/L LAB CHEMISTRY METHOD 07/07/2025 7:34 AM EDT [facility] Chloride 92(L) 96 - 110 mmol/L LAB CHEMISTRY METHOD 07/07/2025 7:34 AM EDT [facility] CO2 45(HH) 21 - 32 mmol/L LAB CHEMISTRY METHOD 07/07/2025 7:34 AM T [facility] Anion Gap 3 3 - 11 LAB CHEMISTRY METHOD 07/07/2025 7:34 AM EDT [facility] Glucose 88 70 - 100 mg/dL LAB CHEMISTRY METHOD 07/07/2025 7:34 AM EDT [facility] BUN 14 5 - 25 mg/dL LAB CHEMISTRY METHOD 07/07/2025 7:34 AM EDT [facility] Creatinine 0.86 0.50 - 1.10 mg/dL LAB CHEMISTRY METHOD 07/07/2025 7:34 AM EDT [facility] eGFR 72 >=60 mL/min/1. 73m2 LAB CHEMISTRY METHOD 07/07/2025 7:34 AM EDT [facility] Comment:Calculation based on the Chronic Kidney Disease Epidemiology Collaboration (CKD-EPI) equation refit without adjustment for race. BUN/Creatinine Ratio 16.3 LAB CHEMISTRY METHOD 07/07/2025 7:34 AM EDT [facility] Calcium 8.3(L) 8.5 - 10.5 mg/dL LAB CHEMISTRY METHOD 07/07/2025 7:34 AM EDT [facility] Blood Venous blood specimen / Unknown Venipuncture / Unknown 07/07/2025 5:50 AM EDT 07/07/2025 6:24 AM EDT us Sathish Erwin MD LAB BLOOD ORDERABLES Final Re sult [facility] [address] [place] [address], * Respiratory virus panel molecular study (07/06/2025 2:08 AM EDT) Adenovirus Detection by PCR Not Detected Not Detected LAB MICROBIOLOGY METHOD 07/06/2025 4:37 AM EDT [facility] Influenza A PCR Not Detected Not Detected LAB MICROBIOLOGY METHOD 07/06/2025 4:37 AM EDT [facility] Influenza B PCR Not Detected Not Detected LAB MICROBIOLOGY METHOD 07/06/2025 4:37 AM EDT [facility] Coronavirus 229E Not Detected Not Detected LAB MICROBIOLOGY METHOD 07/06/2025 4:37 AM EDT [facility] Coronavirus HKU1 Not Detected Not Detected LAB MICROBIOLOGY METHOD 07/06/2025 4:37 AM EDT [facility] Coronavirus OC43 Not Detected Not Detected LAB MICROBIOLOGY METHOD 07/06/2025 4:37 AM EDT [facility] Coronavirus NL63 Not Detected Not Detected LAB MICROBIOLOGY METHOD 07/06/2025 4:37 AM EDT [facility] Parainfluenza Virus 1 Not Detected Not Detected LAB MICROBIOLOGY METHOD 07/06/2025 4:37 AM EDT [facility] Parainfluenza Virus 2 Not Detected Not Detected LAB MICROBIOLOGY METHOD 07/06/2025 4:37 AM EDT [facility] Parainfluenza Virus 3 Not Detected Not Detected LAB MICROBIOLOGY METHOD 07/06/2025 4:37 AM EDT [facility] Parainfluenza Virus 4 Not Detected Not Detected LAB MICROBIOLOGY METHOD 07/06/2025 4:37 AM EDT [facility] RSV PCR Not Detected Not Detected LAB MICROBIOLOGY METHOD 07/06/2025 4:37 AM EDT [facility] Human Metapneumovirus A and B Not Detected Not Detected LAB MICROBIOLOGY METHOD 07/06/2025 4:37 AM EDT [facility] Rhinovirus/Entero virus Not Detected Not Detected LAB MICROBIOLOGY METHOD 07/06/2025 4:37 AM EDT [facility] Bordetella pertussis Not Detected Not Detected LAB MICROBIOLOGY METHOD 07/06/2025 4:37 AM EDT [facility] Bordetella parapertussis Not Detected Not Detected LAB MICROBIOLOGY METHOD 07/06/2025 4:37 AM EDT [facility] Mycoplasma pneumo by PCR Not Detected Not Detected LAB MICROBIOLOGY METHOD 07/06/2025 4:37 AM EDT [facility] Chlamydia pneumoniae Not Detected Not Detected LAB MICROBIOLOGY METHOD 07/06/2025 4:37 AM EDT [facility] SARS COV-2 Not Detected Not Detected LAB MICROBIOLOGY METHOD 07/06/2025 4:37 AM T [facility] Swab Nasopharyngeal structure / Unknown Non-blood Collection / Unknown 07/06/2025 2:08 AM EDT 07/06/2025 3:41 AM EDT [facility] - 07/06/2025 4:37 AM EDT Testing was performed using the [employer] Respiratory Pathogen PCR Assay. All results must [...] that are below the limit of detection. us Eitan Melchor MD LAB MICROBIOLOGY - GENERAL ORDERABLES Final Result [facility] [address] [place] [address], * (ABNORMAL) Venous blood gas (07/06/2025 1:08 AM EDT) pH, Feliz 7.38 7.32 - 7.42 pH 07/06/2025 1:[address] [facility] pCO2, Feliz 85(HH) 41 - 51 mmHg 07/06/2025 1:[address] [facility] pO2, Feliz 41(H) 25 - 40 mmHg 07/06/2025 1:[address] [facility] HCO3, Venous 40.8(H) 22.0 - 26.0 mmol/L 07/06/2025 1:[address] [facility] O2 Sat, Feliz 73.4 % 07/06/2025 [facility] Base Excess, Feliz 21.1(H) -2.0 - 2.0 mmol/L 07/06/2025 1:44 AM EDT [facility] Blood Venous blood specimen / Unknown Venipuncture / Unknown 07/06/2025 1:08 AM EDT 07/06/2025 1:19 AM EDT us Emani Olivarez MD LAB BLOOD ORDERABLES Final Resul t [facility] ([facility]) [facility] [address] [place] [address], [place] [phone] * CT Angio Chest wo and/or w [...] Signed Date: 07/06/2025 08:08 ET Workstation ID: [id number] Transcribed By: Self Edit Transcribed Date: 07/06/2025 [...] Signed Date: 07/06/2025 08:08 ET Workstation ID: [id number] Transcribed By: Self Edit Transcribed Date: 07/06/2025 08:03 ET us Emani Olivarez MD IMG XR PROCEDURES Final Result * Troponin I high sensitivity (07/05/2025 11:35 PM EDT) Only the most recent of2 resultswithin the time period is included. Pathologist [facility] High Sensitivity Troponin I 8 <=54 ng/L LAB CHEMISTRY METHOD 07/06/2025 12:37 AM EDT [facility] Blood Venous blood specimen / Unknown Venipuncture / Unknown 07/05/2025 11:35 PM EDT 07/06/2025 12:10 AM EDT Narrative [facility] - 07/06/2025 12:37 AM EDT High levels of biotin in samples may falsely decrease hsTroponin values. Use caution when interpreting hsTroponin results in patients taking biotin who exhibit renal impairment (eGFR <60) or in patients taking more than 20 mg/day of biotin. us Emani Olivarez MD LAB BLOOD ORDERABLES Final Resul t [facility] [address] [place] [address], * (ABNORMAL) C-reactive protein (07/05/2025 9:58 PM EDT) [facility] C-Reactive Protein 0.87(H) <=0.50 mg/dL LAB CHEMISTRY METHOD 07/06/2025 2:37 AM EDT [facility] Blood Venous blood specimen / Unknown Venipuncture / Unknown 07/05/2025 9:58 PM EDT 07/05/2025 10:23 PM EDT Eitan Melchor MD LAB BLOOD ORDERABLES Final Result [facility] [address] [place] [address], [place] [phone] * B-type natriuretic peptide (07/05/2025 9:58 PM EDT) [facility] BNP 86 <=100 pcg/mL LAB CHEMISTRY METHOD 07/05/2025 11:13 PM EDT [facility] Blood Venous blood specimen / Unknown Venipuncture / Unknown 07/05/2025 9:58 PM EDT 07/05/2025 10:23 PM EDT us Emani Olivarez MD LAB BLOOD ORDERABLES Final Resul t Performing Organization Address [facility]/ZIP Co de Phone Number [facility] [address] [place] [address], [place] [phone] * Lipase (07/05/2025 9:58 PM EDT) [facility] Lipase 28 13 - 75 unit/L LAB CHEMISTRY METHOD 07/05/2025 11:07 PM EDT [facility] Blood Venous blood specimen / Unknown Venipuncture / Unknown 07/05/2025 9:58 PM EDT 07/05/2025 10:23 PM EDT us Emani Olivarez MD LAB BLOOD ORDERABLES Final Resul t [facility] [address] [place] [address], [place] [phone] * ECG 12 lead (07/05/2025 9:40 PM EDT) Ventricular Rate ECG 70 BPM GEMUSE Atrial Rate 70 BPM GEMUSE P-R Interval 130 ms GEMUSE QRS Duration 90 ms GEMUSE Q-T Interval 384 ms GEMUSE QTc 414 ms GEMUSE P Wave Bradford 50 degrees GEMUSE R Bradford 72 degrees GEMUSE T Bradford 52 degrees GEMUSE ECG Interpretation Sinus rhythm [...] 3 AM EDT Physician Radiation Oncology RADIATION ONCSARA [...] 2 AM EDT Physician Radiation Oncology RADIATION QUINCY GY ORDERABLES Final Result MOSAIQ RADIATION ONCOLOGY [...] 6 AM EDT Physician Radiation Oncology RADIATION QUINCY GY ORDERABLES Final Result MOSAIQ RADIATION ONCOLOGY [...] RADIATION ONCOLOGY 06/07/2025 11:0 0 AM EDT us Physician Radiation Oncology RADIATION [...] RADIATION ONCOLOGY 06/06/2025 10:5 3 AM EDT Physician Radiation Oncology RADIATION ONCOLO GY ORDERABLES Final Result Performing Organization Address City/[facility]/ZIP Co de Phone Number MOSAIQ RADIATION [...] 6 AM EDT Physician Radiation Oncology RADIATION ONCSARA [...] ORDERABLES Final Result MOSAIQ RADIATION ONCOLOGY * Colonoscopy (04/27/2024) Colonoscopy No Interpretation , Abstracted Anatomical Region Laterality Modality Other Historical Provider MD HEALTH MAINTENANCE Final Result * Depression Screening (04/16/2024) Depression Screening Abstracted Historical Provider MD HEALTH MAINTENANCE Final Result * LUIS ARMANDO SCREENING DIGITAL (03/22/2024 8:50 AM EDT) Anatomical Region Laterality Modality Mammography 03/21/2024 3:07 PM EDT Narrative 03/22/2024 8:50 AM EDT [facility] Diagnostic Imaging Department [address] [place] [address] Patient: DENISA VERDUZCO D.O.B./Age/Sex: 1955 - 68 - F Unit#: [id number] Location/Status: SPDIMAM/REG CLI Mnemonic/Ordering Site: DIGSC/SPMAM Ordering Physician: YANN MANZANARES Luis Armando Screening Digital - 03/21/24 - Report Status:Signed EXAM: Luis Armando Screening Digital EXAM DATE AND TIME: 03/21/2024 3:49 PM HISTORY: Screening. Left breast biopsy in 2016, pathology benign. COMPARISON: 02/16/23, 09/21/19, 09/18/18, 09/15/17 TECHNIQUE: Bilateral digital breast tomosynthesis was performed in the CC and MLO projections. Computer aided detection with [employer] 3D 3.1 was employed. TISSUE DENSITY: b. [...] Procedure Note Erica Treadwell MD - 07/16/2024 [facility] Diagnostic Imaging Department [address] [place] [address] Patient: KENAUGERODENISA./Age/Sex: 1955 - 68 - F Unit#: [id number] Location/Status: [facility]/REG CLI Mnemonic/Ordering Site: [facility] Ordering Physician: YANN MANZANARES [facility] Screening Digital - 03/21/24 - Report Status:Signed EXAM: [facility] Screening Digital EXAM DATE AND TIME: 03/21/2024 3:49 PM HISTORY: Screening. Left breast biopsy in 2016, pathology benign. COMPARISON: 02/16/23, 09/21/19, 09/18/18, 09/15/17 TECHNIQUE: Bilateral digital breast tomosynthesis was performed in the CCand MLO projections. Computer aided detection with [employer]ure[employer] 3D 3.1was employed. TISSUE DENSITY: b. There [...] MD IMG BI PROCEDURES Final Result * [facility] DEXA AXIAL SKELETON (03/22/2024 8:14 AM EDT) Anatomical Region Laterality Modality Mammography 03/21/2024 3:07 PM EDT Narrative 03/22/2024 8:14 AM EDT [facility] Diagnostic Imaging Department [address] [place] [address] Patient: DENISA VERDUZCO /Age/Sex: 1955 - 68 - F Unit#: [id number] Location/Status: SPDIMAM/REG CLI Mnemonic/Ordering Site: MAMDEXAAX/SPMAM Ordering [...] probability of hip fracture of 7.1%. Code 87275 Dictating Physician: MILTON ORTEGA MD Electronically Signed by: MILTON ORTEGA MD Dic Date/Time: 03/22/24812 Sign date/Time: 03/22/24813 Procedure Note Milton Ortega MD - 07/16/2024 [facility] Diagnostic Imaging Department [address] [place] [address] Patient: DAXDENISA Gray./Age/Sex: 1955 - 68 - F Unit#: [id number] Location/Status[facility] Mnemonic/Ordering Site: [facility] Ordering Physician: YANN MANZANARES Luis Armando [...] density of the femurs bilaterally is 0.912 gm/[id number] is 90% of that of young normals [...] probability of hip fracture of 7.1%. Code 42386 Dictating Physician: MILTON ORTEGA MD Electronically Signed by: MILTON ORTEGA MD Dic Date/Time: 03/22/24812 Sign date/Time: 03/22/24813 Result [facility] Yann Manzanares MD IMG BI PROCEDURES Final Result * Falls Risk Assessment (02/09/2024) [facility] Falls Risk Assessment Abstracted Historical Provider HEALTH MAINTENANCE Final Result * Hepatitis C Screening (02/09/2024) [facility] Hepatitis C Screening Abstracted Result [facility] Historical Provider HEALTH MAINTENANCE Final Result * (ABNORMAL) Lipid panel (02/09/2024) [facility] LDL/HDL Ratio 2 0 - 4 Triglycerides 80 0 - 150 mg/dL Cholesterol 237(A) 0 - 200 mg/dL HDL 103 >=40 mg/dL LDL Cholesterol 118(A) 0 - 100 mg/dL Blood Venous blood specimen / Unknown us Historical Provider LAB BLOOD ORDERABLES Iris l Result from Last 3 Months or Most Recently Relevant to Health Maintenance Insurance MEDICARE [facility] [employer] Advance Directives Documents on File Type Date Recorded Patient Bridge Manager Expl anation Health Care Decision (hx) 04/27/2024 [...] currently active code status orders. Care Teams Boring Machine Operator Double End Relationship Specialty Start Date End Date Kinjal Barron FNP [address] [place] [address] PCP - General Family Medicine 03/06/25
--- OUTSIDE RECORDS SUMMARY | 2025-08-28 10:19 | XMS_ITS | Encounter Summary ---
Author Organization [facility] Address [address] [place] [address] Care Team Providers Care Store Sales Consultant Name Role Phone Kinjal Barron QUALITY SYSTEMS TECHNICIAN Primary Care Provid er Encounter Details Date Type Department Care Team (Late st Contact Info) Description 10/19/[address] [facility] - Main Lab [address] [facility] [place] [address] Janice Núñez MD [address] [place] [address] Chronic obstructive pulmonary disease, unspecified (CMS/HCC V24, [...] Description 09/16/2025 2:15 PM EDT Office Visit [facility] Hematology Oncology [address] [place] [address] Lashanda Mcgillie, DO [address] [place] [address] documented as of this encounter Procedures Procedure [...] mmol/L LAB CHEMISTRY METHOD 10/22/2024 4:26 PM [facility] Potassium 3.8 3.5 - 5.5 mmol/L LAB CHEMISTRY METHOD 10/22/2024 4:26 PM [facility] Chloride 94(L) 96 - 110 mmol/L LAB CHEMISTRY METHOD 10/22/2024 4:26 PM [facility] CO2 41(HH) 21 - 32 mmol/L LAB CHEMISTRY METHOD 10/22/2024 4:26 PM [facility] Anion Gap 3 3 - 11 LAB CHEMISTRY METHOD 10/22/2024 4:26 PM [facility] Glucose 82 70 - 100 mg/dL LAB CHEMISTRY METHOD 10/22/2024 4:26 PM [facility] BUN 12 5 - 25 mg/dL LAB CHEMISTRY METHOD 10/22/2024 4:26 PM [facility] Creatinine 0.94 0.50 - 1.10 mg/dL LAB CHEMISTRY METHOD 10/22/2024 4:26 PM [facility] eGFR 65 >=60 mL/min/1. 73m2 LAB CHEMISTRY METHOD 10/22/2024 4:26 PM EST [facility] Comment:Calculation based on the Chronic Kidney Disease Epidemiology Collaboration (CKD-EPI) equation refit without adjustment for race. BUN/Creatinine Ratio 12.8 LAB CHEMISTRY METHOD 10/22/2024 4:26 PM [facility] Calcium 9.2 8.5 - 10.5 mg/dL LAB CHEMISTRY METHOD 10/22/2024 4:26 PM [facility] Blood Venous blood specimen / Unknown Venipuncture / Unknown 10/22/2024 8:17 AM EST 10/22/2024 11:52 AM EST us Janice Núñez MD LAB BLOOD ORDERABLES Final Resul t [facility] [address] [place] [address], [place] [phone] * (ABNORMAL) Complete blood count (10/22/2024 8:17 AM EST) WBC 5.5 4.8 - 10.8 K/mcL LAB HEMETOLOGY METHOD 10/22/2024 12:22 PM [facility] RBC 3.40(L) 3.80 - 4.80 M/mcL LAB HEMETOLOGY METHOD 10/22/2024 12:22 PM [facility] Hemoglobin 9.4(L) 11.5 - 16.0 g/dL LAB HEMETOLOGY METHOD 10/22/2024 12:22 PM [facility] Hematocrit 32.9(L) 35.0 - 47.0 % LAB HEMETOLOGY METHOD 10/22/2024 12:22 PM [facility] MCV 96.8 79.0 - 98.0 FL LAB HEMETOLOGY METHOD 10/22/2024 12:22 PM [facility] MCH 27.6 27.0 - 32.0 pcg LAB HEMETOLOGY METHOD 10/22/2024 12:22 PM EST [facility] MCHC 28.6(L) 32.0 - 37.0 g/dL LAB HEMETOLOGY METHOD 10/22/2024 12:22 PM [facility] RDW 15.0 11.0 - 15.0 % LAB HEMETOLOGY METHOD 10/22/2024 12:22 PM [facility] Platelets 417(H) 130 - 400 K/mcL LAB HEMETOLOGY METHOD 10/22/2024 12:22 PM [facility] MPV 9.8 7.0 - 11.0 FL LAB HEMETOLOGY METHOD 10/22/2024 12:22 PM [facility] NRBC 0.0 <1.0 % LAB HEMETOLOGY METHOD 10/22/2024 12:22 PM [facility] NRBC Absolute 0.00 <0.10 K/mcL LAB HEMETOLOGY METHOD 10/22/2024 12:22 PM [facility] Blood Venous blood specimen / Unknown Venipuncture / Unknown 10/22/2024 8:17 AM EST 10/22/2024 11:52 AM EST us Janice Núñez MD LAB BLOOD ORDERABLES Final Resul t [facility] [address] [place] [address], documented in this encounter Visit Diagnoses Diagnosis Chronic obstructive pulmonary disease, unspecified (CMS/HCC V24, CMS/HCC V28) documented in this encounter Additional Health Concerns Infection Onset Date Last Indicated Resolved Time Tuberculosis Rule-Out 04/03/2025 04/03/20252024 3:00 PM EDT Respiratory Rule-Out 07/06/2025 07/06/20252 025 4:37 AM EDT COVID-19 Rule-Out 07/06/2025 07/06/2025 07/06/2025 4:37 AM EDT documented as of this encounter Care Teams Store Sales Consultant Relationship Specialty Start Date End Date Kinjal Barron FNP [address] [place] [address] PCP - General Family Medicine 03/06/25 documented as of this encounter
--- OUTSIDE RECORDS SUMMARY | 2025-08-28 10:19 | XMS_ITS | Encounter Summary ---
Author Organization [facility] Address [address] [place] [address] Care Team Providers Care Newspaper Library Manager Name Role Phone Kinjal Barron DOCUMENT CONTROL MANAGER Primary Care Provid er Encounter Details Date Type Department Care Team (Late st Contact Info) Description 11/02/2024 Lab Requisition [facility] - Main Lab [address] [facility] [place] [address] Janice Núñez MD [address] [place] [address] Chronic obstructive pulmonary disease, unspecified (CMS/HCC V24, [...] Description 09/16/2025 2:15 PM EDT Office Visit [facility] Hematology Oncology [address] [place] [address] Lashanda Mcgillie, DO [address] [place] [address] documented as of this encounter Procedures Procedure [...] mmol/L LAB CHEMISTRY METHOD 11/02/2024 11:[address] [facility] Potassium 4.0 3.5 - 5.5 mmol/L LAB CHEMISTRY METHOD 11/02/2024 11:[address] [facility] Chloride 93(L) 96 - 110 mmol/L LAB CHEMISTRY METHOD 11/02/2024 11:[address] [facility] CO2 40(H) 21 - 32 mmol/L LAB CHEMISTRY METHOD 11/02/2024 11:[address] [facility] Anion Gap 5 3 - 11 LAB CHEMISTRY METHOD 11/02/2024 11:[address] [facility] Glucose 86 70 - 100 mg/dL LAB CHEMISTRY METHOD 11/02/2024 11:[address] [facility] BUN 12 5 - 25 mg/dL LAB CHEMISTRY METHOD 11/02/2024 11:[address] [facility] Creatinine 0.86 0.50 - 1.10 mg/dL LAB CHEMISTRY METHOD 11/02/2024 11:[address] [facility] eGFR 73 >=60 mL/min/1. 73m2 LAB CHEMISTRY METHOD 11/02/2024 11:22 AM EST [facility] Comment:Calculation based on the Chronic Kidney Disease Epidemiology Collaboration (CKD-EPI) equation refit without adjustment for race. BUN/Creatinine Ratio 14.0 LAB CHEMISTRY METHOD 11/02/2024 11:[address] [facility] Calcium 8.9 8.5 - 10.5 mg/dL LAB CHEMISTRY METHOD 11/02/2024 11:[address] [facility] Blood Venous blood specimen / Unknown Venipuncture / Unknown 11/02/2024 6:47 AM EST 11/02/2024 9:35 AM EST us Janice Núñez MD LAB BLOOD ORDERABLES Final Resul t [facility] [address] [place] [address], [place] [phone] * (ABNORMAL) Complete blood count (11/02/2024 6:47 AM EST) WBC 7.4 4.8 - 10.8 K/mcL LAB HEMETOLOGY METHOD 11/02/2024 10:[address] [facility] RBC 3.60(L) 3.80 - 4.80 M/mcL LAB HEMETOLOGY METHOD 11/02/2024 10:[address] [facility] Hemoglobin 9.7(L) 11.5 - 16.0 g/dL LAB HEMETOLOGY METHOD 11/02/2024 10:[address] [facility] Hematocrit 33.4(L) 35.0 - 47.0 % LAB HEMETOLOGY METHOD 11/02/2024 10:[address] [facility] MCV 93.6 79.0 - 98.0 FL LAB HEMETOLOGY METHOD 11/02/2024 10:[address] [facility] MCH 27.2 27.0 - 32.0 pcg LAB HEMETOLOGY METHOD 11/02/2024 10:51 AM EST [facility] MCHC 29.0(L) 32.0 - 37.0 g/dL LAB HEMETOLOGY METHOD 11/02/2024 10:[address] [facility] RDW 14.6 11.0 - 15.0 % LAB HEMETOLOGY METHOD 11/02/2024 10:[address] [facility] Platelets 509(H) 130 - 400 K/mcL LAB HEMETOLOGY METHOD 11/02/2024 10:51 AM EST [facility] MPV 9.7 7.0 - 11.0 FL LAB HEMETOLOGY METHOD 11/02/2024 10:[address] [facility] NRBC 0.0 <1.0 % LAB HEMETOLOGY METHOD 11/02/2024 10:[address] [facility] NRBC Absolute 0.00 <0.10 K/mcL LAB HEMETOLOGY METHOD 11/02/2024 10:[address] [facility] Blood Venous blood specimen / Unknown Venipuncture / Unknown 11/02/2024 6:47 AM EST 11/02/2024 9:35 AM EST us Janice Núñez MD LAB BLOOD ORDERABLES Final Resul t [facility] [address] [place] [address], documented in this encounter Visit Diagnoses Diagnosis Chronic obstructive pulmonary disease, unspecified (CMS/HCC V24, CMS/HCC V28) documented in this encounter Additional Health Concerns Infection Onset Date Last Indicated Resolved Time Tuberculosis Rule-Out 04/03/2025 04/03/20252024 3:00 PM EDT Respiratory Rule-Out 07/06/2025 07/06/20252 025 4:37 AM EDT COVID-19 Rule-Out 07/06/2025 07/06/2025 07/06/2025 4:37 AM EDT documented as of this encounter Care Teams Newspaper Library Manager Relationship Specialty Start Date End Date Kinjal Barron FNP [address] [place] [address] PCP - General Family Medicine 03/06/25 documented as of this encounter
--- OUTSIDE RECORDS SUMMARY | 2025-08-28 10:19 | XMS_ITS | Encounter Summary ---
Author Organization [facility] Address [address] [place] [address] Care Team Providers Care Physician Ophthalmologist Name Role Phone Kinjal Barron SOFTWARE DESIGN ENGINEER Primary Care Provid er Encounter Details Date Type Department Care Team (Late Contact Info) Description 10/15/2024 Lab Requisition [facility] - Main Lab [address] [facility] [place] [address] Alley San NP [address] [facility] [address] [facility] [place] [address] Chronic obstructive pulmonary disease, unspecified (CMS/HCC V24, [facility]/HCC V28) Social History Tobacco Use Types Packs/Day [...] Department Care Team (Late Contact Info) Description 09/16/2025 2:15 PM EDT Office Visit [facility] Hematology Oncology [address] [place] [address] Lashanda Mcgill, DO [address] [place] [address] documented as of this encounter Procedures Procedure [...] mmol/L LAB CHEMISTRY METHOD 10/15/2024 1:16 PM [facility] Potassium 3.8 3.5 - 5.5 mmol/L LAB CHEMISTRY METHOD 10/15/2024 1:16 PM [facility] Chloride 90(L) 96 - 110 mmol/L LAB CHEMISTRY METHOD 10/15/2024 1:16 PM [facility] CO2 40(H) 21 - 32 mmol/L LAB CHEMISTRY METHOD 10/15/2024 1:16 PM [facility] Anion Gap 10 3 - 11 LAB CHEMISTRY METHOD 10/15/2024 1:16 PM [facility] Glucose 81 70 - 100 mg/dL LAB CHEMISTRY METHOD 10/15/2024 1:16 PM [facility] BUN 15 5 - 25 mg/dL LAB CHEMISTRY METHOD 10/15/2024 1:16 PM [facility] Creatinine 1.00 0.50 - 1.10 mg/dL LAB CHEMISTRY METHOD 10/15/2024 1:16 PM [facility] eGFR 61 >=60 mL/min/1. 73m2 LAB CHEMISTRY METHOD 10/15/2024 1:16 PM [facility] Comment:Calculation based on the Chronic Kidney Disease Epidemiology Collaboration (CKD-EPI) equation refit without adjustment for race. BUN/Creatinine Ratio 15.0 LAB CHEMISTRY METHOD 10/15/2024 1:16 PM EST [facility] Calcium 9.6 8.5 - 10.5 mg/dL LAB CHEMISTRY METHOD 10/15/2024 1:16 PM [facility] Blood Venous blood specimen / Unknown Venipuncture / Unknown 10/15/2024 8:35 AM EST 10/15/2024 11:13 AM EST Alley San NP LAB BLOOD ORDERABLES Final Re sult [facility] [address] [place] [address], * (ABNORMAL) Complete blood count (10/15/2024 8:35 AM EST) WBC 8.3 4.8 - 10.8 K/mcL LAB HEMETOLOGY METHOD 10/15/2024 12:51 PM [facility] RBC 3.80 3.80 - 4.80 M/mcL LAB HEMETOLOGY METHOD 10/15/2024 12:51 PM [facility] Hemoglobin 10.7(L) 11.5 - 16.0 g/dL LAB HEMETOLOGY METHOD 10/15/2024 12:51 PM [facility] Hematocrit 37.8 35.0 - 47.0 % LAB HEMETOLOGY METHOD 10/15/2024 12:51 PM [facility] MCV 98.4(H) 79.0 - 98.0 FL LAB HEMETOLOGY METHOD 10/15/2024 12:51 PM [facility] MCH 27.9 27.0 - 32.0 pcg LAB HEMETOLOGY METHOD 10/15/2024 12:51 PM [facility] MCHC 28.3(L) 32.0 - 37.0 g/dL LAB HEMETOLOGY METHOD 10/15/2024 12:51 PM EST [facility] RDW 15.2(H) 11.0 - 15.0 % LAB HEMETOLOGY METHOD 10/15/2024 12:51 PM [facility] Platelets 474(H) 130 - 400 K/mcL LAB HEMETOLOGY METHOD 10/15/2024 12:51 PM EST [facility] MPV 9.6 7.0 - 11.0 FL LAB HEMETOLOGY METHOD 10/15/2024 12:51 PM [facility] NRBC 0.0 <1.0 % LAB HEMETOLOGY METHOD 10/15/2024 12:51 PM [facility] NRBC Absolute 0.00 <0.10 K/mcL LAB HEMETOLOGY METHOD 10/15/2024 12:51 PM [facility] Blood Venous blood specimen / Unknown Venipuncture / Unknown 10/15/2024 8:35 AM EST 10/15/2024 11:13 AM EST Alley San NP LAB BLOOD ORDERABLES Final Re sult [facility] [address] [place] [address], documented in this encounter Visit Diagnoses Diagnosis Chronic obstructive pulmonary disease, unspecified (CMS/HCC V24, CMS/HCC V28) documented in this encounter Additional Health Concerns Infection Onset Date Last Indicated Resolved Time Tuberculosis Rule-Out 04/03/2025 04/03/20252024 3:00 PM EDT Respiratory Rule-Out 07/06/2025 07/06/20252 025 4:37 AM EDT COVID-19 Rule-Out 07/06/2025 07/06/2025 07/06/2025 4:37 AM EDT documented as of this encounter Care Teams Physician Ophthalmologist Relationship Specialty Start Date End Date Kinjal Barron FNP [address] [place] [address] PCP - General Family Medicine 03/06/25 documented as of this encounter
== END 2025-08-28 10:13 | disposition home or self-care (01) ==
LOC: HO.HPS 09:28
PROVIDERS: PCP Nurse Practitioner Family; Visit Provider Hospitalist
DX: J43.2 Centrilobular emphysema (principal); R91.1 Solitary pulmonary nodule; J96.11 Chronic respiratory failure with hypoxia; J96.12 Chronic respiratory failure with hypercapnia; F51.01 Primary insomnia; G47.33 Obstructive sleep apnea (adult) (pediatric); C34.92 Malignant neoplasm of unspecified part of left bronchus or lung
CPT/HCPCS: 99215; G2211

== ENCOUNTER → 2025-08-28 09:27 | Outpatient (BNVA) | payer OTHER, SELFPAY | PROVIDERS: PCP Nurse Practitioner Family; Visit Provider Hospitalist | DX: J43.2 Centrilobular emphysema (principal); J96.11 Chronic respiratory failure with hypoxia; J96.12 Chronic respiratory failure with hypercapnia; R91.1 Solitary pulmonary nodule; C34.92 Malignant neoplasm of unspecified part of left bronchus or lung; G47.33 Obstructive sleep apnea (adult) (pediatric); F51.01 Primary insomnia; Z99.11 Dependence on respirator [ventilator] status; Z91.199 Patient's noncompliance with other medical treatment and regimen due to unspecified reason | CPT/HCPCS: 99212 ==

== ENCOUNTER 2025-09-19 09:29 | Outpatient (AMB) | payer OTHER, SELFPAY ==
--- OUTSIDE RECORDS SUMMARY | 2025-09-17 11:45 | XMS_ITS | Encounter Summary ---
Author Organization [facility] Address [address] [place] [address] Care Team Providers Care Layout Worker Name Role Phone Rabia Barrongeovanny Alonzoca [employer] Primary Care Provid er Reason for Referral * Imaging (Routine) - Authorized Specialty Diagnoses / Procedures Referred By Daniel t Referred To Contact Radiology Diagnoses Squamous cell carcinoma of left lung (CMS/HCC V24, CMS/HCC V28) Personal history of malignant neoplasm of lung Malignant neoplasm of overlapping sites of left bronchus and lung (CMS/HCC V24, CMS/HCC V28) Procedures PET CT Skull to Mid Thigh Subsequent Lashanda Mcgill DO [address] [place] [id number] Phone: tel: fax: [facility] Referral ID Status Reason Start Date Expiration Date V isits Requested Visits Authorized [id number] Authorized 09/17/2025 09/17/2026 1 1 Reason for Visit * Reason Comments Follow-up Encounter Details Date Type Department Care Team (Late st Contact Info) Description 09/17/2025 11:45 AM EDT Office Visit [facility] Hematology Oncology [address] [place] [phone] Lashanda Mcgill, DO [address] [place] [address] Squamous cell carcinoma of left lung ([facility] V24, [facility] V28) (Primary Dx); Personal history of malignant neoplasm of lung; Malignant neoplasm of overlapping sites of left bronchus and lung ([facility] V24, [facility] V28) Social History Tobacco Use Types Packs/Day Years Used Date Smoking Tobacco: Former Cigarettes 2 40 0 12/30/1972 - 12/30/2006 Smokeless Tobacco: Never Comments:Quit 2017 Alcohol Use Standard Drinks/Week Comments Not Currently 0 (1 standard drink = 0.6 oz pur e alcohol) Interpersonal Safety Answer Date Record ed Physical Abuse Unrecognized value 09/05/2025 Verbal Abuse Unrecognized value 09/05/2025 Comments Unknown Sex and Gender Information Value [...] Sign Reading Time Taken Comments Blood Pressure 135/68 09/17/2025 12:05 PM EDT Pulse 94 09/17/2025 12:05 PM EDT Temperature 36.3 C (97.4 F) 09/17/2025 12:05 PM EDT Respiratory Rate - - Oxygen Saturation 90% 09/17/2025 12:05 PM EDT 3L O2 Inhaled Oxygen Concentration - - Weight - - Height 154.9 cm (5' 1 ) 09/17/2025 12:05 PM EDT Body Mass Index - - documented in this encounter Functional Status * [...] Entry Date Author No 07/06/2025 1:10 AM EDCheryle Magallon RN documented in this encounter Progress Notes * Lashanda Mcgill, DO - 09/17/2025 11:45 AM EDT Hematology/Oncology Progress Note 09/17/25 Subjective: Patient ID: Lluvia Cartagena is a 70 y.o. female. Interval history: The patient is a 70-year-old female who presents for evaluation of lung cancer. Since last visit she had two hospital stays one at [place] and one here. She was discharged to SNF on the last one and has been there since. She reports feeling generally weak overall. She has only afew days left of physical therapy and they are planning to likely transition her to terminal block assembler care. She reports experiencing shortness of breath and a decrease in her oxygen saturation levels at night. She will discuss with her messenger office later this week. She reports a decreased appetite. Additionally, she notes the presence of swelling at her feet overthe past few days. She is uncertain about continuing her treatment, including immunotherapy, due to concerns about itsside effects. History of Present Illness The patient is a 69-year-old female who presents for evaluation of lung cancer. She has a history of COPD and has been following with her messenger office at [place]. She was having routine scans of her chest once a year. The last CT scan done at [place] on January 08, 2025 showedmultiple nodular densities in the left upper lobe. The patient was ultimately referred to Dr. Peters for further management. She underwent bronchoscopy with left upper lobe cryobiopsy which showed moderately differentiated squamous cell carcinoma. SOCIAL HISTORY Lives with her daughter Retired. Former smoker. Current Outpatient Medications: acetaZOLAMIDE (DIAMOX) 250 mg tablet, Take 1 tablet (250 mg total) by mouth 3 (three) times a week.TUESDAY, TUESDAY, TUESDAY, Disp: , Rfl: albuterol 2.5 mg /3 mL (0.083 %) nebulizer solution, Take 3 mL (2.5 mg total) by nebulization every4 (four) hours if needed for wheezing., Disp: , Rfl: albuterol sulfate 90 mcg/actuation aerosol powdr breath activated, Inhale 1 puff by mouth every 6 (six) hours if needed (COPD)., Disp: , Rfl: alendronate (FOSAMAX) 70 mg tablet, Take 1 tablet (70 mg total) by mouth every 7 (seven) days., Disp: , Rfl: apixaban (Eliquis) 5 mg tablet, Take 1 tablet (5 mg total) by mouth 2 (two) times a day., Disp: , Rfl: ARIPiprazole (ABILIFY) 10 mg tablet, Take 1 tablet (10 mg total) by mouth 1 (one) time each day., Disp: , Rfl: aspirin 81 mg EC tablet, Take 1 tablet (81 mg total) by mouth 1 (one) time each day., Disp: , Rfl: atorvastatin (Lipitor) 40 mg tablet, Take 1 tablet (40 mg total) by mouth at bedtime., Disp: , Rfl: calcium carbonate (TUMS) 500 mg (200 mg elemental calcium) chewable tablet, Chew 1 tablet (500 mg total) 2 (two) times a day., Disp: , Rfl: cholecalciferol, vitamin D3, 25 mcg (1,000 unit) tablet,chewable, Chew 1,000 Units 1 (one) time each day in the morning., Disp: , Rfl: dexAMETHasone (DECADRON) 4 mg tablet, Take 8 mg (two tablets) once daily, starting the day after treatment, for three days (days 2-4). Take in the morning with food. (Patient not taking: Reported on 09/05/2025), Disp: 30 tablet, Rfl: 1 docusate sodium (COLACE) 100 mg capsule, Take 1 capsule (100 mg total) by mouth 1 (one) time each day if needed for constipation., Disp: , Rfl: ferrous sulfate 324 mg (65 mg elemental iron) EC tablet, Take 1 tablet (324 mg total) by mouth 3 (three) times a week. TUESDAY, TUESDAY, TUESDAY, Disp: , Rfl: fluticasone furoate-vilanteroL (Breo Ellipta) 200-25 mcg/dose inhaler, INHALE 1 PUFF DIRECTED ONCE A DAY, Disp: , Rfl: fluticasone propionate (FLONASE) 50 mcg/actuation nasal spray, Administer 1 spray into each nostril2 (two) times a day. Shake gently. Before first use, prime pump. After use, clean tip and replace cap., Disp: 16 g, Rfl: 3 furosemide (LASIX) 20 mg tablet, Take 1 tablet (20 mg total) by mouth 1 (one) time each day., Disp:, Rfl: gabapentin (NEURONTIN) 100 mg capsule, Take 1 capsule (100 mg total) by mouth 2 (two) times a day with meals., Disp: , Rfl: guaiFENesin (MUCINEX) 600 mg 12 hr tablet, Take 1 tablet (600 mg total) by mouth 2 (two) times a day., Disp: , Rfl: incontinence pad, liner, disp pad, Incontinence Supply Disposable (Disposable Liners) Misc Use 3 times a day as needed for incontinence.= (Patient not taking: Reported on 09/05/2025), Disp: , Rfl: ipratropium-albuteroL (DUONEB) 0.5-2.5 mg/3 mL nebulizer solution, Take 3 mL by nebulization 2 (two) times a day if needed for wheezing. (Patient taking differently: Take 3 mL by nebulization 4 (four) times a day if needed for shortness of breath.), Disp: 360 mL, Rfl: 2 lamoTRIgine (LaMICtal) 200 mg tablet, Take 1 tablet (200 mg total) by mouth 2 (two) times a day., Disp: , Rfl: lidocaine-prilocaine (EMLA) 2.5-2.5 % cream, Apply to port site 1 hour prior to each time port is accessed (Patient not taking: Reported on 09/05/2025), Disp: 30 g, Rfl: 1 loratadine (CLARITIN) 10 mg tablet, Take 1 tablet (10 mg total) by mouth 1 (one) time each day., Disp: , Rfl: metoprolol succinate (TOPROL-XL) 100 mg 24 hr tablet, Take 1 tablet (100 mg total) by mouth 1 (one)time each day. Do not crush or chew., Disp: 30 each, Rfl: 11 mirtazapine (REMERON) 15 mg tablet, Take 0.5 tablets (7.5 mg total) by mouth at bedtime., Disp: , Rfl: montelukast (SINGULAIR) 10 mg tablet, Take 1 tablet (10 mg total) by mouth 1 (one) time each day., Disp: , Rfl: omega 5-qni-ndt-fish oil 300 mg (120 mg- 180mg)-1,000 mg capsule, Take 1,000 mg by mouth 2 (two) times a day., Disp: , Rfl: Oxygen Therapy (O2) gas, Inhale 2 L/min continuously. via nasal canula 2L while at rest, 3-4L with activity and ventilation system at bedtime, Disp: , Rfl: pantoprazole (PROTONIX) 40 mg EC tablet, Take 1 tablet (40 mg total) by mouth 1 (one) time each day. 30 minutes before breakfast daily, Disp: , Rfl: predniSONE (DELTASONE) 5 mg tablet, Take 1 tablet (5 mg total) by mouth 1 (one) time each day., Disp: , Rfl: senna (SENOKOT) 8.6 mg tablet, Take 1 tablet (8.6 mg total) by mouth at bedtime as needed for constipation., Disp: , Rfl: theophylline (MANDY-24) 300 mg 24 hr capsule, Take 1 capsule (300 mg total) by mouth 2 (two) times aday., Disp: , Rfl: traMADoL (ULTRAM) 50 mg tablet, Take 1 tablet (50 mg total) by mouth every 6 (six) hours if needed for moderate pain., Disp: , Rfl: vilazodone (VIIBRYD) 40 mg tablet, Take 1 tablet (40 mg total) by mouth 1 (one) time each day in the morning., Disp: , Rfl: Allergies Allergen Reactions Codeine Other hyper Fluoxetine Hyperactive behavior Crazy Haloperidol Hives hyperactivity The following portions of the patient's chart were reviewed in this encounter and updated as appropriate: . Review of Systems Objective: BP 135/68 (BP Location: Left arm, Patient Position: Sitting) Pulse 94 Temp 36.3 ??C (97.4 ??F) (Temporal) Ht 1.549 m (61 ) BMI 37.22 kg/m?? Physical Exam General: older woman in no distress Respiratory: Bilateral lung auscultation performed , decreased breath sounds both lung bases. Integument/Skin: Swelling noted. Abdomen: soft without tenderness Neuro: awake , alert, seated in wheelchair. Results Labs Lab Results Component Value Date WBC 4.7 (L) 09/11/2025 HGB 10.8 (L) 09/11/2025 HCT 37.7 09/11/2025 MCV 95.9 09/11/2025 PLT 381 09/11/2025 Lab Results Component Value Date NA 142 09/11/2025 K 3.8 09/11/2025 CL 100 09/11/2025 CO2 39 (H) 09/11/2025 GLUCOSE 107 (H) 09/11/2025 BUN 9 09/11/2025 CREATININE 0.82 09/11/2025 CALCIUM 9.1 09/11/2025 PROT 6.7 09/05/2025 ALBUMIN 3.6 09/05/2025 BILITOT 0.3 09/05/2025 AST 20 09/05/2025 ALT 22 09/05/2025 MG 1.9 09/06/2025 ALKPHOS 74 09/05/2025 EGFR 77 09/11/2025 NDICATION: Confusion, acute, unexplained MR Brain with and without gadolinium Comparison: MR/WI/SR - MR BRAIN WO AND W CONTRAST - 04/25/25 15:39 EDT Findings: No restricted diffusion. No intra-axial mass or hemorrhage. No midline shift. No hydrocephalus. Vascular flow voids are intact. Orbital contents are unremarkable. The sinuses and mastoid air cells are clear. No focal bone lesion. IMPRESSION: No acute findings. This document has been electronically signed by: Gonzalo Dorantes MD on 09/05/2025 19:17:56 Assessment & Plan 70 year old female presents for follow up of lung cancer. The patient has a left upper lobe cancer with multiple consolidations. Follow-up imaging shows there is no evidence of distant metastatic disease to the brain. She was considered a T3 N0 tumor and has been as planned for radiation as she is not a surgical candidate. She completed RT and then plans for adjuvant chemotherapy due to high risk disease. However after one dose of reducted dose carboplatin/paclitaxel she has decreased her performance status and remainsin a SNF. Given her baseline ECOG was already borderline it is unlikely she will become a candidatefor further systemic therapy. Assessment & Plan Squamous cell carcinoma of lung, left upper lobe , PDL-1 of 10% Given the current weakened state, would not continue with aggressive treatments such as chemotherapy or immunotherapy. Instead, a palliative approach will be adopted, focusing on maintaining comfort without further interventions that could potentially exacerbate the condition. She is not quite ready for hospice care at this time. Stop further chemotherapy carbo and Taxol Port has recently been flushed. A PET scan will be ordered to assess the extent of the disease. Follow up with me in a few weeks to discuss the final plan which likely will be observation alone I called and spoke over the phone with Heather daughter and HCP and she agrees with likely no further treatment Anemia Her labs are being monitored at the [facility], hemoglobin stable. Lashanda Sharif DO Hematology/Oncology [facility] documented in this encounter Plan of Treatment Upcoming Encounters Date Type Department Care Team (Late st Contact Info) Description 10/18/2025 10:45 AM EST Office Visit [facility] Hematology Oncology [address] [place] [phone] Lashanda Mcgill DO [address] [place] [address] Scheduled Orders Name Type Priority Associated Diagnoses Orde r Schedule PET CT Skull to Mid Thigh Subsequent Imaging Routine Squamous cell carcinoma of left lung (CMS/HCC V24, CMS/HCC V28) Personal history of malignant neoplasm of lung Malignant neoplasm of overlapping sites of left bronchus and lung (CMS/HCC V24, CMS/HCC V28) Expected: 10/01/2025, Expires: 09/17/2026 documented as of this encounter Visit Diagnoses Diagnosis Squamous cell carcinoma of left lung (CMS/HCC V24, CMS/HCC V28)- Primary Personal history of malignant neoplasm of lung Personal history of malignant neoplasm of bronchus and lung Malignant neoplasm of overlapping sites of left bronchus and lung (CMS/HCC V24, CMS/HCC V28) documented in this encounter Additional Health Concerns Assessment Noted Time PHQ-9 Depression Total Score: 1 07/19/20 25 5:04 PM EDT documented as of this encounter Care Teams Layout Worker Relationship Specialty Start Date End Date Kinjal Barron FNP [address] [place] [phone] PCP - General Family Medicine 03/06/25 documented as of this encounter
--- NOTE | 2025-09-19 09:31 | MHC.OFFVIS ---
Vital Signs 09/19/25 09:32 Height 5 ft 1 in Weight 194 lb 0.108 oz BMI 36.7 BP 116/58 L Blood Pressure Location Lt brachial Position Sitting Pulse 80 Pulse Source Pulse Oximeter Pulse Oximetry (%) 92 Oxygen Delivery Method Nasal Cannula Oxygen Flow Rate 4 Intake Visit Reasons: Respiratory Failure Manager Registration Required: No Accompanied by: Daughter Allergies fluoxetine Allergy (Severe, Verified 09/19/25 09:37) Irritable codeine (Codeine) Allergy (Intermediate, Verified 09/19/25 09:37) RESTLESS/RASH haloperidol (Haldol) Allergy (Intermediate, Verified 09/19/25 09:37) Palpitations HPI Comments Details: The patient is a 70-year-old woman with known history of COPD and chronic hypoxic and hypercarbic respiratory failure. She 1st did require a tracheostomy in the past and she had a prolonged hospitalization which she was able to be decannulated. She was then placed on noninvasive ventilation. The patient has been inconsistent with the usage. In January of this year the patient was admitted to the hospital with acute on chronic hypercarbic respiratory failure where her pCO2 was about 118 mmHg.. The patient was placed on noninvasive ventilation and her pH normalize and her average pCO2 was between 60-70. She was discharged to use her trilogy at home. At home she is still struggling with the noninvasive ventilator. She has a hard time getting used to it. Her [employer], [employer] will be performing overnight oximetry with an end-tidal CO2 to measure her see you to into appropriately adjust her noninvasive ventilator. She also has made mentioning that she has been more short of breath and she has had more hypoxia. In the office we did perform a 6 minutes walk test and she did require 2 L nasal cannula to maintain her pulse ox above 90%. Therefore, she will be using 3 L instead of to with activity and also with sleep. 04/15/2023 the patient is here for pulmonary follow-up visit. She still residing at the [facility]. She is using her trilogy noninvasive ventilator every night. However, she has been using more recently because she ended up in the hospital. She was having chest pressure sensation and dizziness. During the hospitalization at [facility] the patient states that she had an ABG done demonstrating a pCO2 58 and per report was okay. Therefore, will hold off on doing an ABG today. The patient has been fairly relatively well from a respiratory status. She does complaint of heaviness of the chest. On examination she is very diminished. Therefore likely has significant air trapping hyperinflation them every resulting in some chest pressure sensation. I did recommend she start using the trilogy with a sip and puff during the daytime to help her with the air trapping. The patient has also gained weight and that is also going to contribute to additional respiratory symptoms. The patient needs to start working on weight management with the help of the services provided. The patient is using her diuretics with good effect. No significant edema at this time. It is not clear if she is using the theophylline. She has been on multiple medications and has got to multiple institutions so therefore it is hard to know if those removed and if it was stopped for particular reason. We should recheck her theophylline levels if she is on theophylline. Otherwise restart the theophylline if she is off it and then recheck levels. She should stay within the low therapeutic range to help her with her severe COPD. Patient is using her oxygen at 3 L continues with good effect. Again, I reached out to the [employer], [employer], to rete she had uses sip and puff device that she can use during the daytime 06/17/2023 the patient is here for pulmonary follow-up visit. The patient has been doing well. She is looking now to move to a care home. in the meantime she is using her noninvasive ventilator. The noninvasive ventilator has been affecting beneficial. We did have her undergo a venous blood gas in appears that her pH is stable. She understands that if she does move to a care home she went to find a way to make sure that she continues use her noninvasive ventilator as prescribed. She continues on respiratory therapy. She continues oxygen supplementation at 3 L could would response. 09/20/2023 the patient has a telehealth visit today. Unfortunately she could not make it in from her residence. She has been more depressed lately. She has recently found out that she lost the services from her [facility]. There been with her for many years. In addition to that the patient has not been using her Trelegy ventilator. She is try to find out how long she can go without it. She was wondering if she can have blood work to see how well her CO2 is while she is not using it. However, I encouraged her to use it since we know that her baseline CO2 is already elevated and by using the ventilator she has better reserved in case she develops an exacerbation or an acute illness. The patient will start using her ventilator at nighttime. I did put him for blood work and she can always have the blood work done here or she can find out another means of doing a. But getting a blood gas will be difficult to do otherwise. The patient did recently have a respiratory illness with a virus. Was not COVID. She was not giving any prednisone or antibiotics. Her cough is not too bad. If the cough worsens with worsening congestion then using a antibiotic to minimize on the postviral bacterial infections would be reasonable. 12/23/2023 the patient is here for a pulmonary follow-up visit. Since we last spoke the patient did have a fall on her retirement. She fractured multiple ribs and was admitted to [facility] with acute on chronic hypercarbic respiratory failure. She was placed on BiPAP and was able to stabilize. She did not require invasive ventilation. The patient had not been using her noninvasive ventilator at the retirement. This is unfortunate. She understands the with her condition she relies on this therapy. The patient has been using now regularly since she was discharged from the hospital. She is looking to be placed in a care home. Therefore, she is making the arrangements. We did have her undergo a venous blood gas today and her acid-base status is stable and pCO2 is back to her baseline. Her bicarbonate always will be elevated to try to compensate for the hypercarbia and right now is at 37. she does continue to use her respiratory therapy as prescribed. She is also using oxygen continuously throughout the day with good effect. Once the patient is out of the retirement to a care home will see about getting pulmonary function studies and starting outpatient pulmonary rehabilitation. Also to note while she was at [facility] she did have a CT scan of the chest that was personally by me. She had multiple rib fractures on the left 1 which was displaced. Also has small subcentimeter pulmonary nodule that will follow-up in a year's time. 02/21/2024 the patient is here for pulmonary follow-up visit. The patient overall has been doing well. She did move out of the retirement in currently in a care home. She is getting a lot of support. She is taking all her medications. Although, the theophylline 400 mg is not available. I will try sending her a different does see that was available and also will check theophylline levels. The patient has been using her noninvasive ventilator at nighttime. The therapy has been affecting beneficial. We did have her get blood work and it appears that her bicarb is down to 32 which is very encouraging. The patient also has been using her oxygen at 3 L continues will keep a go above 88%. The patient is able to increase it to 4 L if her oxygen is dropping below 88%. Will go ahead and request pulmonary function studies and plan for pulmonary rehabilitation at this time. Will follow-up in 3 months or sooner if any new issues arise. 05/24/2024 the patient is here for a pulmonary follow-up visit. She was recently at [facility]. There was an issue with her oxygen. Now she is back to her care home. the having hard time regulating her oxygen. We did have her come in for 6 minute walk test. The patient needs 6 L of oxygen with activity and at least 2 L at rest. Although typically she needs more than 2 to keep her pulse ox above 90%. We did review her CT scan of the chest that she had while at [facility]. She has extensive emphysema which explains her very labile oxygen requirements. In addition to that she does have some pulmonary nodules that appear to have increased in size primarily in the left hemithorax. She will need a repeat CT scan in the next 3 months. She has minimal reserve. We did look at her previous PFTs demonstrating very severe COPD and severe diffusion impairment. however, the patient has been fairly well although she has had although severe disease. She has been using her noninvasive ventilator at nighttime. At least 6 hours. We did have her go for blood work including a venous gas demonstrating appears due to a baseline 61 mm of Hg. The patient does have some lower extremity edema. She will benefit from additional diuresis. In addition to that she is having increased wheezing chest tightness and cough. Therefore will send her a prednisone taper and also start an antibiotic. This will be to treat her for COPD exacerbation. She has participating in the pulmonary rehabilitation. She has fine the very affecting beneficial. She will continue for now. 07/06/2024 the patient is here for a pulmonary follow-up visit. She has been in an out of hospital. She has been trying to use her noninvasive ventilator more regularly. She understands it is a necessity for her to use it at least every night. She also continues with respiratory therapy. She has been responding well to the oxygen supplementation. Last blood gas was back the end of May demonstrating a pCO2 around 70 which is close to her baseline. She continues with respiratory therapy with good effect. Appears to have increasing lower extremity edema. Likely secondary to a component I will call pulmonale. Needs to continue with a low sodium diet and diuresis. CXR from 06/21/23 personally reviewed by me without any acute changes. 09/13/2024 the patient has a telehealth visit today. She is status post couple hospitalizations. Now she is at rehab and this is a telehealth. The patient initially was admitted to [facility] back at the end of June with acute on chronic respiratory failure. She was diagnosed with COVID a. During that admission she did have a CT a that I did evaluate. She did have an irregular nodular density in the left upper lobe likely infectious process although since his new and she is high risk for cancer we can not rule out malignancy. She was treated and then subsequently discharged back to her care home. Subsequently after that she went to [facility]. The details are not available but she likely had a tachyarrhythmia. She did require cardioversion. Afterwards the patient was transferred to [facility] which is currently getting rehabilitation. She feels weak. She has a hard time walking. Her oxygen requirements are still about the same 3 L at rest and 6 L with activity. She is also having issues with her noninvasive ventilator which she is waking up short of breath. Therefore, will have her have a repeat 6 minute walk test while she is there she should also continue with multi disciplinary therapies in addition to that will talk to respiratory there to see if they can tweak her ventilator to a higher pressure to help her with those difficult times. The patient plans to go back to her care home. 10/22/2024 the patient is here for hospital follow-up visit. She had been in the hospital with acute on chronic hypoxic and hypercarbic respiratory failure and [facility] She is currently read some. She is not going back to the care home. She is trying to feel better enough to be able to go to her daughter's. There she could have some assistance from with the family and also some medical assistance. But she is still not clear. She does use the noninvasive ventilator. She did get an placement while at rest own. She is tolerating well. Will have her get a blood gas to see what her CO2 is. In addition to that which she check her theophylline level since she has noticed some tachycardia. She continues to feel weak. She feels like her legs want to give out when she is ambulating. Strikes me that could be related to her CO2 as she has had issues with falls and weakness when her CO2 elevates. 11/15/2024 the patient is here for pulmonary follow-up visit. Since we last spoke she went to [facility] with worsening shortness of breath. There she did have a CT scan of the chest which I personally reviewed. This was done 11/02/20[address] she [address] a CT scan here at [facility] in the summer of 2023 and she had another CT scan at [facility] in 12/17/2023. I did review all of them. She does have a left upper lobe pulmonary nodule that appears to be worsening. There is significant concerned with his nodule for a smoldering infection process such as a fungal infection could be a localized bacterial infection but could also be a malignant process. The patient understands that her lung capacity significantly limited and with end-stage pulmonary disease and we difficult to do any invasive or semi-invasive procedures for diagnostic purposes. Therefore, rather treat her empirically. Will go ahead and request blood work including galactomannan and other laboratories. And will go ahead and treat her for potential staph infection or fungal infection. Plan to repeat the CT scan a couple months. If the area still present then will have to discuss how to proceed. Again, the patient is high risk for any intervention. In the meantime she has been using the noninvasive ventilator. The ventilator has been affecting beneficial although she continues to have elevations in the CO2. Will have to adjusted accordingly. The patient also may have a component of sleep apnea and an in-lab sleep study may be helpful as well to further address any significant sleep apnea and subsequently asleep PAP titration study to properly treat her underlying sleep apnea. She will continue with current respiratory therapy as prescribed. She will continue with the oxygen as prescribed. 12/20/2024 the patient is here for a pulmonary follow-up visit. Overall she is doing well. She is moving out of bed some going with her daughter. She is excited. In the meantime she has been using her noninvasive ventilator every night. The therapy has been affecting beneficial although she feels like sometimes she wakes up breathless and sometimes her oxygen requirements are increased. We will request a download in order to be able to adjust the machine accordingly with the help of [employer]. In addition to that she was admitted briefly to [facility] with significant anemia. She was placed on iron and now she is a little constipated. She is going to monitor closely her anemia specially because of her significant respiratory disease the anemia will ultimately resulting significantly worsening respiratory symptoms. If we not able to adjust her noninvasive ventilator appropriately that we can always consider a titration study. She also had an abnormal CT scan back in October and we had requested repeat. In the meantime she went to [facility] she did have a chest x-ray which is reassuring. Demonstrating emphysema and chronic stable findings. 01/18/2025 the patient is here for a pulmonary follow-up visit. Overall she is doing better. She was sickly with flu-like symptoms but now she is back to her baseline. She is using her noninvasive ventilation at nighttime although she still trying to find the right mask. We did have a phone small air touch F20 mask available. Seems to fit well and I believe she will do better with a full mask so it does not make as much noise. The patient also has been using her respiratory therapy. I will send all her medications to the pharmacy. In addition to this the patient did have a CT scan of the chest that we personally certainly reviewed and compared to her previous CT from from June. It appears that the masslike density in the left upper lobe is getting bigger. It is concerning for malignancy specially since she was treated for fungal infections and she has been treated for infectious bacterial infections as well without any evidence of any improvement. Therefore, will go ahead and request a PET scan to see if there is any significant evidence of hypermetabolic activity. Any kind of biopsy would be dangerous because of her significant respiratory failure. We can also consider stereotactic radiation to the area if is concerning enough on the PET scan without a biopsy. Will plan to follow-up after her PET scan several weeks. 02/21/2025 the patient is here for a pulmonary follow-up visit. Overall the patient has been feeling much better from a respiratory status. She has been using her noninvasive ventilator the whole night sometimes up to 10 hours a day. This is helping her feel better overall. Her respiratory medications and regimen is seems to be stable and she is tolerating it. She is gaining weight and we did talk about that. She needs to work on portion control Lifestyle changes. In the meantime she did undergo a PET scan. We did personally review together. She did have an FDG activity of 8 of the area of the left upper lobe peripheral nodular density. Indeed is concerning. She was already treated empirically for aspergilloma and also treated with antibiotics. This area indeed is concerning for malignancy. The issue is that she does have significant chronic hypercarbic and hypoxic respiratory failure and any procedure will potentially high risk. We did talk about a CT-guided biopsy although would have to go to her breast tissue and could result in a pneumothorax and so peripheral. The other option will be navigational bronchoscopy robotic bronchoscopy under general anesthesia. Which she should be able to tolerate but the anesthesia is indeed concerning for worsening perioperative complications. Will go ahead and refer her to Interventional Pulmonary to see if any interventions could be considered for her. In the meantime will go ahead and treat her with Bactrim although she has not allergy. Want to make sure we treat for smoldering infection such as Nocardia which can manifest in this form. Therefore the patient will start Bactrim I put him for CAT scan for 6 weeks from now to see those any improving the area and also she will follow-up with intervention a pulmonary. 05/08/2025 the patient is here for a pulmonary follow-up visit. The patient has been having a very busy few months. She did follow-up with Interventional Pulmonary she was diagnosed with lung cancer. Now she is following closely with oncology and radiation oncology. She is going to be starting SBRT and then after that she is going to receive chemotherapy with immune therapy. The patient is not a candidate for surgical resection because her very limited respiratory capacity. She has been using her trilogy at nighttime. The noninvasive ventilator has been affecting beneficial. However she is having hard time tolerating the pressures and she is having hard time with hypoxia. I am going to talk to [employer] to see if we can switch her over to astral and also we can adjust her pressures accordingly. The patient will continue to use her respiratory medications as prescribed. She is having some chest congestion. I do believe that Ohtuvayre would be a good addition chronic bronchitis and the fact that she will be able to use any prednisone while on immune therapy. She is going to talk about it with her daughter and the let me know if she wants me to start the process of required thin the medication. The patient will return in 6-8 weeks. If she has any issues prior to that she will call for an earlier assessment. 06/26/2025 the patient is here for a pulmonary follow-up visit. She is status post SBRT. She has had issues with radiation pneumonitis. The patient has been on prednisone currently at 15 mg. She continues use her respiratory therapy and also her oxygen supplementation up to 6 L with activity. Although, even on the 6 L she is still desaturating down to the low 80s if not high 70s. She is also using the oxygen with her noninvasive ventilator, trilogy at nighttime. She is still having issues with the pressures are so high that is pushing the mask off her face. Makes it very uncomfortable for her to use. I did reach out to her [employer], [employer] and did send some adjustments decreasing her tidal volume increasing her maximum pressure is and also increasing the respiratory rate to try to maintain a certain minute ventilation. Will have her get blood work today. In view of her significant hypoxia will have to rule out possibility of radiation pneumonitis but also other conditions such as thromboembolic disease specially with her lung cancer she is a high risk for blood clots. The patient also did have a walking oximetry and she did require up to 6 L with activity. Will adjust her medications accordingly based on her x-ray and blood work. In the meantime she is waiting to get stabilized to be able to get a port in order to start chemotherapy. I am concerned with the degree of respiratory failure any procedure will be high risk. 07/25/2025 the patient is here for pulmonary follow-up visit. She was recently hospitalized at [facility] with worsening respiratory breathing. Her noninvasive ventilator was adjusted. She seems to be tolerating it better. She continues on the oxygen. She also was diuresed. Her volume status is better and she does take Lasix as needed if she does gained 2 lb in 24 hours a 3 lb in 48 hours. She did start recently chemotherapy. She seems to be tolerating the paclitaxel on the cisplatin. She has received the 1st dose. Although the port looks a little bit inflamed. Will go ahead and started on some doxycycline and also check some blood cultures just in case. She will call her oncologist to make sure that they can evaluate the port access. In the meantime the patient continues her respiratory therapy. She is tolerating it well. Still has dyspnea on exertion. Moderate severity. She is on 15 mg of prednisone. Her respiratory exam is reassuring. Will try to decrease her prednisone slowly down from 15 mg to 10 mg. Will plan to get blood work today. 08/28/2025 the patient is here for pulmonary follow-up visit. Overall she is doing okay. She was hospitalized after getting chemo with a COPD exacerbation and pneumonitis. She was treated with high-dose steroids in addition to antibiotics. She is now rehab. She is recovering. Although she has been more forgetful. She has not been using her noninvasive ventilator which is a concern. She understands that which she does not use the none invasive ventilator her CO2 increases and results in CO2 narcosis. Some of her memory gaps right now maybe 2 due to the fact that his already rising. She is already getting some tremors. If he does not start using it soon she went though going into worsening narcosis. I did make a note to the rehab for her to start using it more regularly. In the meantime the need to monitor her bicarbonate. If her bicarbonate breathing 40 they can provide her with some Diamox 250 mg x 1. She should continue with the oxygen. She did well on 2 L maintaining a pulse ox about 94%. She should keep her range of oximetry between 88-95% to minimize too many high numbers. When she ambulates she can be on 3-4 L to maintain a pulse ox in the mid 90s. The patient will follow-up with Oncology sometime mid August and figure out what to do next if they going to try her again on chemo find a more gentle chemotherapy or if they are going to hold off completely. In the meantime follow-up imaging studies to monitor the pulmonary nodules to make sure we follow the evolution. 09/19/2025 the patient is here for pulmonary follow-up visit. Overall the patient has been doing okay. She did follow-up with Oncology and they stopped all chemotherapy and radiation since she has a hard time tolerating it. She is going to have a PET scan in the coming weeks and figure out radiological staging. The patient is considering palliative care maybe hospice in the future. For now she is using her noninvasive ventilator every night. The therapy has been affecting beneficial. Sometimes she does desaturate at night and she will go ahead and increase her oxygen from 4 L to 5 L at this time. When she is situated we can always do an overnight oximetry. In the meantime though she likely will have to hinder in the Trelegy and will get a different machine from a different company since she is not a retirement. If she can not get a noninvasive ventilator she can use the BiPAP ideally ST with a backup rate. We can talk about that further depending on the process. For now she will continue with the Trelegy every night with the oxygen. She also continues the oxygen with activity to maintain a pulse ox of 88-95%. She continues with respiratory therapy as prescribed. She will had been taking Diamox and her blood work looks reassuring. Will follow-up in 2 months if she has any worsening issues or any concerning issues she can always call for further recommendations. [facility] Medical History (Updated 08/22/25 @ 00:00 by Denice Michele) Lung cancer Pulmonary nodule 1 cm or greater in diameter Lung mass RITA (obstructive sleep apnea) Cor pulmonale Rib fractures Pulmonary nodule Tubular adenoma of colon (~2006) Osteopenia (~2012) Bronchopneumonia Chest pain Chronic respiratory alkalosis ILD (interstitial lung disease) CO2 retention Acute on chronic respiratory failure with hypoxia and hypercapnia Bipolar depression Eczema Limb swelling Insomnia Bronchitis Vasomotor rhinitis COPD (chronic obstructive pulmonary disease) Chronic respiratory failure Fall Acute metabolic encephalopathy Acute and chronic respiratory failure with hypercapnia Surgical History History of carpal tunnel surgery (~2000) History of ventral hernia repair (~2003) History of left inguinal hernia repair (~1995) History of tracheostomy (~2016) History of cataract surgery (~2018) History of colonoscopy Family History Other Hypertension Social History Household Members: Children Household Members Other:: Daughter, son-in-law, grandchildren Housing: House Housing Other:: care home Are you a primary school child care attendant to a significant other at home: No Do you presently have visiting nurse or other home services: Yes (everyday, 3.5hrs/day) Alcohol intake: former Patient Tobacco Use Status: Former Tobacco user Tobacco use type: Cigarette Years Smoked: 20+ years e-Cigarette/Vaping Use: Never Used Second Hand Smoke Exposure: No Advance Directives Date on File: 11/30/21 service: No Current occupational status: disabled Review of Systems Const Reports fatigue, Denies night sweats and Reports weight gain ENT Denies change in voice, Denies lip swelling, Denies mouth pain, Reports nasal congestion, Reports nasal discharge and Denies tongue swelling Card Denies chest pain, Reports pedal edema, Reports dyspnea and Reports dyspnea on exertion Resp Denies change in phlegm color, Denies chest congestion, Reports cough, Reports dyspnea, Reports dyspnea on exertion and Denies wheezing GI Denies abdominal pain Musc Denies no additional complaints, Reports abnormal gait and Reports muscle weakness Skin/Breast Denies erythema and Denies skin swelling Neuro Denies Neuro-related abnormal movements, Reports abnormal gait, Denies memory loss and Denies tremor(s) Psych Reports depression and Denies memory loss Endo Reports fatigue Gerson/Lymph Denies easy bleeding and Denies lymphadenopathy Aller/Immun Denies lip swelling, Denies tongue swelling and Denies wheezing Physical Exam Vital Signs: Last Vital Signs Pulse 80 09/19/25 09:32 BP 116/58 L 09/19/25 09:32 Pulse Ox 92 09/19/25 09:32 Oxygen Delivery Method Nasal Cannula 09/19/25 09:32 Oxygen Flow Rate 4 09/19/25 09:32 BMI result Body Mass Index 36.7 Last Vital Signs Temp 98.0 F 08/09/25 11:32 Pulse 74 08/09/25 11:39 Resp 17 08/09/25 11:39 BP 126/55 L 08/09/25 11:32 Pulse Ox 94 08/09/25 11:32 O2 Del Method Oxymask 08/09/25 11:32 O2 Flow Rate 6 08/09/25 11:32 FiO2 60 08/08/25 23:27 Oxygen Flow Rate 6 08/06/25 13:53 BMI result Body Mass Index 32.0 Const General: alert HEENT Head: Yes normocephalic Neck Neck: Yes normal visual inspection, Yes full ROM and Yes no lymphadenopathy Chest Chest palpation & inspection: normal inspection of the chest Resp Effort & Inspection: normal respiratory effort and prolonged expiratory phase Auscultation: diminished lung sounds Cardio Rate: regular rate Rhythm: regular rhythm Heart sounds: S1 normal heart sound present and S2 normal heart sound present GI Palpation (GI): Soft to palpation and nontender Auscultation: normal bowel sounds Skin General skin exam: no rashes or lesions noted Assessment & Plan Assessment & Plan (1) COPD (chronic obstructive pulmonary disease): Code(s): J44.9 - Chronic obstructive pulmonary disease, unspecified Category: Medical Qualifiers: COPD type: emphysema Emphysema type: centrilobular Qualified Code(s): J43.2 - Centrilobular emphysema (2) Pulmonary nodule: Code(s): R91.1 - Solitary pulmonary nodule Category: Medical (3) Chronic respiratory failure: Code(s): J96.10 - Chronic respiratory failure, unspecified whether with hypoxia or hypercapnia Category: Medical Qualifiers: Respiratory failure complication: hypoxia and hypercapnia Qualified Code(s): J96.11 - Chronic respiratory failure with hypoxia; J96.12 - Chronic respiratory failure with hypercapnia (4) Insomnia: Code(s): G47.00 - Insomnia, unspecified Category: Medical Qualifiers: Insomnia type: primary Qualified Code(s): F51.01 - Primary insomnia (5) Respiratory failure: Code(s): J96.90 - Respiratory failure, unspecified, unspecified whether with hypoxia or hypercapnia Category: Medical Qualifiers: Chronicity: chronic Respiratory failure complication: hypoxia and hypercapnia Qualified Code(s): J96.11 - Chronic respiratory failure with hypoxia; J96.12 - Chronic respiratory failure with hypercapnia (6) RITA (obstructive sleep apnea): Code(s): G47.33 - Obstructive sleep apnea (adult) (pediatric) Category: Medical (7) Lung cancer: Code(s): C34.90 - Malignant neoplasm of unspecified part of unspecified bronchus or lung Category: Medical Qualifiers: Laterality: left Lung location: unspecified part of lung Qualified Code(s): C34.92 - Malignant neoplasm of unspecified part of left bronchus or lung (8) Chronic hypoxic respiratory failure: Code(s): J96.11 - Chronic respiratory failure with hypoxia Category: Medical Plan continue noninvasive ventilator use. OK to switch to BIPAP ST if needed completed SBRT and chemo/immune therapy stopped all paclitaxel.cisplatin after hospitalization after initial therapy. continue Breo continue Incruse continue Ohtuvayre once the pt reviews the info and agrees to start oxygen at 2-3 liters/minute at rest and 5L/minute with activity to keep pox 88-95% weight management lasix as needed PET scan pending F/U 2-3 months Coding Level of Care Code Est Pt Level 5 (42756) Complex EM visit Add On G2211 Diagnoses Centrilobular emphysema J43.2 COPD type: emphysema Emphysema type: centrilobular Pulmonary nodule R91.1 Chronic respiratory failure with hypoxia and hypercapnia J96.11; J96.12 Respiratory failure complication: hypoxia and hypercapnia Primary insomnia F51.01 Insomnia type: primary Chronic respiratory failure with hypoxia and hypercapnia J96.11; J96.12 Chronicity: chronic Respiratory failure complication: hypoxia and hypercapnia RITA (obstructive sleep apnea) G47.33 Malignant neoplasm of left lung, unspecified part of lung C34.92 Laterality: left Lung location: unspecified part of lung Chronic hypoxic respiratory failure J96.11 Time Spent (min) 60
[2025-09-19 09:32] VITALS: BP 116/58; PULSE 80; O2SAT 92; BMI 36.7
--- OUTSIDE RECORDS SUMMARY | 2025-09-19 10:40 | XMS_ITS | Encounter Summary ---
Author Organization [facility] Address [address] [place] [address] Care Team Providers Care Photographic Equipment Technician Name Role Phone Kinjal Barron INSTALLER METAL FLOORING Primary Care Provid er Encounter Details Date Type Department Care Team (Late st Contact Info) Description 11/03/2024 Lab Requisition [facility] - Main Lab [address] [place] [address] Janice Núñez MD [address] [place], [place] [phone] Chronic obstructive pulmonary disease, unspecified (CMS/HCC V24, [...] Description 10/18/2025 10:45 AM EST Office Visit [facility] Hematology Oncology [address] [place] [address] Lashanda Mcgill, DO [address] [place] [address] documented as of this encounter Procedures Procedure Name Priority Date/Time Associated Diagnosis Comments COMPLETE BLOOD COUNT Routine 11/05/2024 8:13 AM EST Chronic obstructive pulmonary disease, unspecified ([facility]/HCC) BASIC METABOLIC PANEL Routine 11/05/2024 8:13 AM EST Chronic obstructive pulmonary disease, unspecified ([facility]/HCC) documented in this encounter Results * (ABNORMAL) Basic metabolic panel (11/05/2024 8:13 AM EST) Sodium 141 133 - 145 mmol/L LAB CHEMISTRY METHOD 11/05/2024 11:51 AM [facility] Potassium 4.1 3.5 - 5.5 mmol/L LAB CHEMISTRY METHOD 11/05/2024 11:51 AM [facility] Chloride 98 96 - 110 mmol/L LAB CHEMISTRY METHOD 11/05/2024 11:51 AM [facility] CO2 43(HH) 21 - 32 mmol/L LAB CHEMISTRY METHOD 11/05/2024 11:51 AM [facility] Anion Gap 0(L) 3 - 11 LAB CHEMISTRY METHOD 11/05/2024 11:51 AM [facility] Glucose 95 70 - 100 mg/dL LAB CHEMISTRY METHOD 11/05/2024 11:51 AM [facility] BUN 12 5 - 25 mg/dL LAB CHEMISTRY METHOD 11/05/2024 11:51 AM [facility] Creatinine 0.97 0.50 - 1.10 mg/dL LAB CHEMISTRY METHOD 11/05/2024 11:51 AM [facility] eGFR 63 >=60 mL/min/1. 73m2 LAB CHEMISTRY METHOD 11/05/2024 11:51 AM EST [facility] Comment:Calculation based on the Chronic Kidney Disease Epidemiology Collaboration (CKD-EPI) equation refit without adjustment for race. BUN/Creatinine Ratio 12.4 LAB CHEMISTRY METHOD 11/05/2024 11:51 AM EST [facility] Calcium 9.0 8.5 - 10.5 mg/dL LAB CHEMISTRY METHOD 11/05/2024 11:51 AM EST [facility] Blood Venous blood specimen / Unknown Venipuncture / Unknown 11/05/2024 8:13 AM EST 11/05/2024 10:37 AM EST Janice Núñez MD LAB BLOOD ORDERABLES Final Resul t [facility] [address] [place] [address], * (ABNORMAL) Complete blood count (11/05/2024 8:13 AM EST) WBC 5.7 4.8 - 10.8 K/mcL LAB HEMETOLOGY METHOD 11/05/2024 11:00 AM [facility] RBC 3.70(L) 3.80 - 4.80 M/mcL LAB HEMETOLOGY METHOD 11/05/2024 11:00 AM [facility] Hemoglobin 9.8(L) 11.5 - 16.0 g/dL LAB HEMETOLOGY METHOD 11/05/2024 11:00 AM [facility] Hematocrit 34.3(L) 35.0 - 47.0 % LAB HEMETOLOGY METHOD 11/05/2024 11:00 AM [facility] MCV 93.7 79.0 - 98.0 FL LAB HEMETOLOGY METHOD 11/05/2024 11:00 AM [facility] MCH 26.8(L) 27.0 - 32.0 pcg LAB HEMETOLOGY METHOD 11/05/2024 11:00 AM [facility] MCHC 28.6(L) 32.0 - 37.0 g/dL LAB HEMETOLOGY METHOD 11/05/2024 11:00 AM [facility] RDW 14.5 11.0 - 15.0 % LAB HEMETOLOGY METHOD 11/05/2024 11:00 AM [facility] Platelets 429(H) 130 - 400 K/mcL LAB HEMETOLOGY METHOD 11/05/2024 11:00 AM [facility] MPV 9.5 7.0 - 11.0 FL LAB HEMETOLOGY METHOD 11/05/2024 11:00 AM [facility] NRBC 0.0 <1.0 % LAB HEMETOLOGY METHOD 11/05/2024 11:00 AM [facility] NRBC Absolute 0.00 <0.10 K/mcL LAB HEMETOLOGY METHOD 11/05/2024 11:00 AM [facility] Blood Venous blood specimen / Unknown Venipuncture / Unknown 11/05/2024 8:13 AM EST 11/05/2024 10:37 AM EST us Janice Núñez MD LAB BLOOD ORDERABLES Final Resul t [facility] [address] [place] [address], documented in this encounter Visit Diagnoses Diagnosis Chronic obstructive pulmonary disease, unspecified (CMS/HCC V24, CMS/HCC V28) documented in this encounter Additional Health Concerns Infection Onset Date Last Indicated Resolved Time Tuberculosis Rule-Out 04/03/2025 04/03/20252024 3:00 PM EDT Respiratory Rule-Out 07/06/2025 07/06/2025 025 4:37 AM EDT COVID-19 Rule-Out 07/06/2025 07/06/2025 07/06/2025 4:37 AM EDT Respiratory Rule-Out 09/05/2025 09/05/2025 025 3:59 PM EDT COVID-19 Rule-Out 09/05/2025 09/05/2025 09/05/2025 3:59 PM EDT documented as of this encounter Care Teams Photographic Equipment Technician Relationship Specialty Start Date End Date Kinjal Barron FNP [address] [place] [phone] PCP - General Family Medicine 03/06/25 documented as of this encounter
--- OUTSIDE RECORDS SUMMARY | 2025-09-19 10:40 | XMS_ITS | Encounter Summary ---
Author Organization [facility] Address [address] [place] [address] Care Team Providers Care Stitch Cleaner Name Role Phone Kinjal Barron REVENUE MANAGER Primary Care Provid er Encounter Details Date Type Department Care Team (Late st Contact Info) Description 12/11/2024 Lab Requisition [facility] - Main Lab [address] [place] [address] Glenroy Goff MD [address] [place] [address] [address] [place], [address] Chronic obstructive pulmonary disease, unspecified (CMS/HCC [...] Description 10/18/2025 10:45 AM EST Office Visit [facility] Hematology Oncology [address] [place] [address] Lashanda Mcgill, DO [address] [place] [address] documented as of this encounter Procedures Procedure Name Priority Date/Time Associated Diagnosis Comments COMPLETE BLOOD COUNT Routine 12/11/2024 6:30 AM EST Chronic obstructive pulmonary disease, unspecified (CMS/HCC) BASIC METABOLIC PANEL Routine 12/11/2024 6:30 AM EST Chronic obstructive pulmonary disease, unspecified ([facility]/HCC) documented in this encounter Results * [...] LAB CHEMISTRY METHOD 12/11/2024 11:11 AM EST [facility] Comment:Calculation based on the Chronic Kidney Disease Epidemiology Collaboration (CKD-EPI) equation refit without adjustment for race. BUN/Creatinine Ratio 20.5 LAB CHEMISTRY METHOD 12/11/2024 11:11 AM EST [facility] Calcium 8.6 8.5 - 10.5 mg/dL LAB CHEMISTRY METHOD 12/11/2024 11:11 AM EST [facility] Blood Venous blood specimen / Unknown Venipuncture / Unknown 12/11/2024 6:30 AM EST 12/11/2024 9:22 AM EST us Glenroy Goff MD LAB BLOOD ORDERABLES Final Resul t [facility] [address] [place] [address], * (ABNORMAL) Complete blood count (12/11/2024 6:30 [...] LAB HEMETOLOGY METHOD 12/11/2024 11:11 AM EST [facility] MCHC 27.9(L) 32.0 - 37.0 g/dL LAB HEMETOLOGY METHOD 12/11/2024 11:11 AM [facility] RDW 15.7(H) 11.0 - 15.0 % LAB HEMETOLOGY METHOD 12/11/2024 11:11 AM EST [facility] Platelets 399 130 - 400 K/mcL LAB HEMETOLOGY METHOD 12/11/2024 11:11 AM [facility] MPV 10.0 7.0 - 11.0 FL LAB HEMETOLOGY METHOD 12/11/2024 11:11 AM [facility] NRBC 0.0 <1.0 % LAB HEMETOLOGY METHOD 12/11/2024 11:11 AM [facility] NRBC Absolute 0.00 <0.10 K/mcL LAB HEMETOLOGY METHOD 12/11/2024 11:11 AM [facility] Blood Venous blood specimen / Unknown Venipuncture / Unknown 12/11/2024 6:30 AM EST 12/11/2024 9:22 AM EST us Glenroy Goff MD LAB BLOOD ORDERABLES Final Resul t [facility] [address] [place] [address], documented in this encounter Visit Diagnoses Diagnosis [...] documented as of this encounter Care Teams Stitch Cleaner Relationship Specialty Start Date End Date Kinjal Barron FNP [address] [place] [phone] PCP - General Family Medicine 03/06/25 documented as of this encounter
--- OUTSIDE RECORDS SUMMARY | 2025-09-19 10:40 | XMS_ITS | Encounter Summary ---
Author Organization [facility] [address] Address [address] [place] [address] Care Team Providers Care Structural Steel Equipment Erector Name Role Phone Kinjal Barron CERTIFIED ADAPTIVE PHYSICAL EDUCATOR Primary Care Provid er Encounter Details Date Type Department Care Team (Late st Contact Info) Description 09/17/2025 Lab Requisition [facility] - Main Lab [address] [place] [address] Janice Núñez MD [address] [place], [place] [phone] Malignant neoplasm of unspecified part of left [...] Description 10/18/2025 10:45 AM EST Office Visit [facility] Hematology Oncology [address] [place] [phone] Lashanda Mcgill, [address] [place] [address] documented as of this encounter Procedures Procedure Name Priority Date/Time Associated Diagnosis Comments COMPLETE BLOOD COUNT Routine 09/18/2025 5:01 AM EDT Malignant neoplasm of unspecified part of left bronchus or lung (CMS/HCC V24, CMS/HCC V28) Chronic respiratory failure with hypercapnia (CMS/HCC V24, CMS/HCC V28) BASIC METABOLIC PANEL Routine 09/18/2025 5:01 AM EDT Malignant neoplasm of unspecified part of left bronchus or lung (CMS/HCC V24, CMS/HCC V28) Chronic respiratory failure with hypercapnia (CMS/HCC V24, CMS/HCC V28) documented in this encounter Results * (ABNORMAL) Basic metabolic panel (09/18/2025 5:01 AM EDT) Sodium 139 133 - 145 mmol/L LAB CHEMISTRY METHOD 09/18/2025 12:44 PM [facility] Potassium 4.1 3.5 - 5.5 mmol/L LAB CHEMISTRY METHOD 09/18/2025 12:44 PM [facility] Chloride 93(L) 96 - 110 mmol/L LAB CHEMISTRY METHOD 09/18/2025 12:44 PM [facility] CO2 39(H) 21 - 32 mmol/L LAB CHEMISTRY METHOD 09/18/2025 12:44 PM [facility] Anion Gap 7 3 - 11 LAB CHEMISTRY METHOD 09/18/2025 12:44 PM [facility] Glucose 64(L) 70 - 100 mg/dL LAB CHEMISTRY METHOD 09/18/2025 12:44 PM [facility] BUN 15 5 - 25 mg/dL LAB CHEMISTRY METHOD 09/18/2025 12:44 PM [facility] Creatinine 0.86 0.50 - 1.10 mg/dL LAB CHEMISTRY METHOD 09/18/2025 12:44 PM [facility] eGFR 72 >=60 mL/min/1. 73m2 LAB CHEMISTRY METHOD 09/18/2025 12:44 PM [facility] Comment:Calculation based on the Chronic Kidney Disease Epidemiology Collaboration (CKD-EPI) equation refit without adjustment for race. BUN/Creatinine Ratio 17.4 LAB CHEMISTRY METHOD 09/18/2025 12:44 PM EDT [facility] Calcium 9.9 8.5 - 10.5 mg/dL LAB CHEMISTRY METHOD 09/18/2025 12:44 PM EDT [facility] Blood Venous blood specimen / Unknown Venipuncture / Unknown 09/18/2025 5:01 AM EDT 09/18/2025 10:13 AM EDT us Janice Núñez MD LAB BLOOD ORDERABLES Final Resul t [facility] [address] [place] [address], [place] [phone] * (ABNORMAL) Complete blood count (09/18/2025 5:01 AM EDT) WBC 7.6 4.8 - 10.8 K/mcL LAB HEMETOLOGY METHOD 09/18/2025 11:08 AM [facility] RBC 3.60(L) 3.80 - 4.80 M/mcL LAB HEMETOLOGY METHOD 09/18/2025 11:08 AM [facility] Hemoglobin 10.3(L) 11.5 - 16.0 g/dL LAB HEMETOLOGY METHOD 09/18/2025 11:08 AM [facility] Hematocrit 35.4 35.0 - 47.0 % LAB HEMETOLOGY METHOD 09/18/2025 11:08 AM [facility] MCV 97.3 79.0 - 98.0 FL LAB HEMETOLOGY METHOD 09/18/2025 11:08 AM [facility] MCH 28.3 27.0 - 32.0 pcg LAB HEMETOLOGY METHOD 09/18/2025 11:08 AM [facility] MCHC 29.1(L) 32.0 - 37.0 g/dL LAB HEMETOLOGY METHOD 09/18/2025 11:08 AM EDT [facility] RDW 16.0(H) 11.0 - 15.0 % LAB HEMETOLOGY METHOD 09/18/2025 11:08 AM EDT [facility] Platelets 400 130 - 400 K/mcL LAB HEMETOLOGY METHOD 09/18/2025 11:08 AM EDT [facility] MPV 9.6 7.0 - 11.0 FL LAB HEMETOLOGY METHOD 09/18/2025 11:08 AM EDT [facility] NRBC 0.0 <1.0 % LAB HEMETOLOGY METHOD 09/18/2025 11:08 AM EDT [facility] NRBC Absolute 0.00 <0.10 K/mcL LAB HEMETOLOGY METHOD 09/18/2025 11:08 AM EDT [facility] Blood Venous blood specimen / Unknown Venipuncture / Unknown 09/18/2025 5:01 AM EDT 09/18/2025 10:13 AM EDT Janice Núñez MD LAB BLOOD ORDERABLES Final Resul t [facility] [address] [place] [address], documented in this encounter Visit Diagnoses Diagnosis Malignant neoplasm of unspecified part of left bronchus or lung (CMS/HCC V24, CMS/HCC V28) Chronic respiratory failure with hypercapnia (CMS/HCC V24, CMS/HCC V28) documented in this encounter Additional Health Concerns Assessment Noted Time PHQ-9 Depression Total Score: 1 07/19/20 25 5:04 PM EDT documented as of this encounter Care Teams Structural Steel Equipment Erector Relationship Specialty Start Date End Date Kinjal Barron FNP [address] [place] [phone] PCP - General Family Medicine 03/06/25 documented as of this encounter
--- OUTSIDE RECORDS SUMMARY | 2025-09-19 10:40 | XMS_ITS | Encounter Summary ---
Author Organization [facility] Address [address] [place] [address] Care Team Providers Care Single Needle Tufting Machine Operator Name Role Phone Kinjal Barron APPLICATION PENETRATION TESTER Primary Care Provid er Encounter Details Date Type Department Care Team (Late st Contact Info) Description 11/02/2024 Lab Requisition [facility] - Main Lab [address] [place] [address] Janice Núñez MD [address] [place], [place] [phone] Chronic obstructive pulmonary disease, unspecified (CMS/HCC V24, [...] Description 10/18/2025 10:45 AM EST Office Visit [facility] Hematology Oncology [address] [place] [address] Lashanda Mcgill, DO [address] [place] [address] documented as of this encounter Procedures Procedure Name Priority Date/Time Associated Diagnosis Comments COMPLETE BLOOD COUNT Routine 11/02/2024 6:47 AM EST Chronic obstructive pulmonary disease, unspecified (CMS/HCC) BASIC METABOLIC PANEL Routine 11/02/2024 6:47 AM EST Chronic obstructive pulmonary disease, unspecified ([facility]/HCC) documented in this encounter Results * (ABNORMAL) [...] LAB CHEMISTRY METHOD 11/02/2024 11:22 AM EST [facility] Comment:Calculation based on the Chronic Kidney Disease Epidemiology Collaboration (CKD-EPI) equation refit without adjustment for race. BUN/Creatinine Ratio 14.0 LAB CHEMISTRY METHOD 11/02/2024 11:22 AM EST [facility] Calcium 8.9 8.5 - 10.5 mg/dL LAB CHEMISTRY METHOD 11/02/2024 11:22 AM [facility] Blood Venous blood specimen / Unknown Venipuncture / Unknown 11/02/2024 6:47 AM EST 11/02/2024 9:35 AM EST Janice Núñez MD LAB BLOOD ORDERABLES Final Resul t [facility] [address] [place] [address], * (ABNORMAL) Complete blood count (11/02/2024 6:47 [...] LAB HEMETOLOGY METHOD 11/02/2024 10:51 AM EST [facility] MCHC 29.0(L) 32.0 - [...] Final Resul t [facility] [address] [place] [address], documented in this encounter Visit Diagnoses Diagnosis [...] documented as of this encounter Care Teams Single Needle Tufting Machine Operator Relationship Specialty Start Date End Date Kinjal Barron FNP [address] [place] [phone] PCP - General Family Medicine 03/06/25 documented as of this encounter
--- OUTSIDE RECORDS SUMMARY | 2025-09-19 10:40 | XMS_ITS | Encounter Summary ---
Author Organization [facility] Address [address] [place] [address] Care Team Providers Care Oil Rig Roughneck Name Role Phone Kinjal Barron SPECIAL DUTY NURSE Primary Care Provid er Encounter Details Date Type Department Care Team (Late st Contact Info) Description 11/20/2024 Lab Requisition [facility] - Main Lab [address] [place] [address] Janice Núñez MD [address] [place] [address] Chronic obstructive pulmonary disease, unspecified (CMS/HCC V24, [...] Description 10/18/2025 10:45 AM EST Office Visit [facility] Hematology Oncology [address] [place] [address] Lashanda Mcgill, DO [address] [place] [address] documented as of this encounter Procedures Procedure Name Priority Date/Time Associated Diagnosis Comments COMPLETE BLOOD COUNT Routine 11/20/2024 6:24 AM EST Chronic obstructive pulmonary disease, unspecified (CMS/HCC) BASIC METABOLIC PANEL Routine 11/20/2024 6:24 AM EST Chronic obstructive pulmonary disease, unspecified ([facility]/HCC) documented in this encounter Results * (ABNORMAL) Basic metabolic panel (11/20/2024 6:24 AM EST) Sodium 134 133 - 145 mmol/L LAB CHEMISTRY METHOD 11/20/2024 10:56 AM [facility] Potassium 4.3 3.5 - 5.5 mmol/L LAB CHEMISTRY METHOD 11/20/2024 10:56 AM [facility] Chloride 87(L) 96 - 110 mmol/L LAB CHEMISTRY METHOD 11/20/2024 10:56 AM [facility] CO2 44(HH) 21 - 32 mmol/L LAB CHEMISTRY METHOD 11/20/2024 10:56 AM [facility] Anion Gap 3 3 - 11 LAB CHEMISTRY METHOD 11/20/2024 10:56 AM [facility] Glucose 83 70 - 100 mg/dL LAB CHEMISTRY METHOD 11/20/2024 10:56 AM [facility] BUN 17 5 - 25 mg/dL LAB CHEMISTRY METHOD 11/20/2024 10:56 AM [facility] Creatinine 0.95 0.50 - 1.10 mg/dL LAB CHEMISTRY METHOD 11/20/2024 10:56 AM [facility] eGFR 65 >=60 mL/min/1. 73m2 LAB CHEMISTRY METHOD 11/20/2024 10:56 AM EST [facility] Comment:Calculation based on the Chronic Kidney Disease Epidemiology Collaboration (CKD-EPI) equation refit without adjustment for race. BUN/Creatinine Ratio 17.9 LAB CHEMISTRY METHOD 11/20/2024 10:56 AM EST [facility] Calcium 9.2 8.5 - 10.5 mg/dL LAB CHEMISTRY METHOD 11/20/2024 10:56 AM [facility] Blood Venous blood specimen / Unknown Venipuncture / Unknown 11/20/2024 6:24 AM EST 11/20/2024 9:31 AM EST us Janice Núñez MD LAB BLOOD ORDERABLES Final Resul t [facility] [address] [place] [address], * (ABNORMAL) Complete blood count (11/20/2024 6:24 AM EST) WBC 8.4 4.8 - 10.8 K/mcL LAB HEMETOLOGY METHOD 11/20/2024 10:10 AM [facility] RBC 3.70(L) 3.80 - 4.80 M/mcL LAB HEMETOLOGY METHOD 11/20/2024 10:10 AM [facility] Hemoglobin 9.5(L) 11.5 - 16.0 g/dL LAB HEMETOLOGY METHOD 11/20/2024 10:10 AM [facility] Hematocrit 34.1(L) 35.0 - 47.0 % LAB HEMETOLOGY METHOD 11/20/2024 10:10 AM [facility] MCV 93.4 79.0 - 98.0 FL LAB HEMETOLOGY METHOD 11/20/2024 10:10 AM [facility] MCH 26.0(L) 27.0 - 32.0 pcg LAB HEMETOLOGY METHOD 11/20/2024 10:10 AM EST [facility] MCHC 27.9(L) 32.0 - 37.0 g/dL LAB HEMETOLOGY METHOD 11/20/2024 10:10 AM [facility] RDW 14.9 11.0 - 15.0 % LAB HEMETOLOGY METHOD 11/20/2024 10:10 AM [facility] Platelets 512(H) 130 - 400 K/mcL LAB HEMETOLOGY METHOD 11/20/2024 10:10 AM [facility] MPV 9.8 7.0 - 11.0 FL LAB HEMETOLOGY METHOD 11/20/2024 10:10 AM [facility] NRBC 0.0 <1.0 % LAB HEMETOLOGY METHOD 11/20/2024 10:10 AM [facility] NRBC Absolute 0.00 <0.10 K/mcL LAB HEMETOLOGY METHOD 11/20/2024 10:10 AM [facility] Blood Venous blood specimen / Unknown Venipuncture / Unknown 11/20/2024 6:24 AM EST 11/20/2024 9:31 AM EST us Janice Núñez MD LAB BLOOD ORDERABLES Final Resul t [facility] [address] [place] [address], documented in this encounter Visit Diagnoses Diagnosis [...] documented as of this encounter Care Teams Oil Rig Roughneck Relationship Specialty Start Date End Date Kinjal Barron FNP [address] [place] [phone] PCP - General Family Medicine 03/06/25 documented as of this encounter
--- OUTSIDE RECORDS SUMMARY | 2025-09-19 10:40 | XMS_ITS | Encounter Summary ---
Author Organization [facility] Address [address] [place] [address] Care Team Providers Care Novelty Worker Name Role Phone Kinjal Barron PRIMER INSERTING MACHINE OPERATOR Primary Care Provid er Encounter Details Date Type Department Care Team (Late st Contact Info) Description 10/27/2024 Lab Requisition [facility] - Main Lab [address] [place] [address] Janice Núñez MD [address] [place] [address] Chronic obstructive pulmonary disease, unspecified (CMS/HCC V24, [...] Description 10/18/2025 10:45 AM EST Office Visit [facility] Hematology Oncology [address] [place] [address] Lashanda Mcgill, DO [address] [place] [address] documented as of this encounter Procedures Procedure Name Priority Date/Time Associated Diagnosis Comments COMPLETE BLOOD COUNT Routine 10/29/2024 8:00 AM EST Chronic obstructive pulmonary disease, unspecified (CMS/HCC) BASIC METABOLIC PANEL Routine 10/29/2024 8:00 AM EST Chronic obstructive pulmonary disease, unspecified ([facility]/HCC) documented in this encounter Results * (ABNORMAL) Basic metabolic panel (10/29/2024 8:00 AM EST) Sodium 138 133 - 145 mmol/L LAB CHEMISTRY METHOD 10/29/2024 2:01 PM [facility] Potassium 3.6 3.5 - 5.5 mmol/L LAB CHEMISTRY METHOD 10/29/2024 2:01 PM [facility] Chloride 91(L) 96 - 110 mmol/L LAB CHEMISTRY METHOD 10/29/2024 2:01 PM [facility] CO2 40(H) 21 - 32 mmol/L LAB CHEMISTRY METHOD 10/29/2024 2:01 PM [facility] Anion Gap 7 3 - 11 LAB CHEMISTRY METHOD 10/29/2024 2:01 PM [facility] Glucose 86 70 - 100 mg/dL LAB CHEMISTRY METHOD 10/29/2024 2:01 PM [facility] BUN 15 5 - 25 mg/dL LAB CHEMISTRY METHOD 10/29/2024 2:01 PM [facility] Creatinine 0.89 0.50 - 1.10 mg/dL LAB CHEMISTRY METHOD 10/29/2024 2:01 PM [facility] eGFR 70 >=60 mL/min/1. 73m2 LAB CHEMISTRY METHOD 10/29/2024 2:01 PM EST [facility] Comment:Calculation based on the Chronic Kidney Disease Epidemiology Collaboration (CKD-EPI) equation refit without adjustment for race. BUN/Creatinine Ratio 16.9 LAB CHEMISTRY METHOD 10/29/2024 2:01 PM [facility] Calcium 9.3 8.5 - 10.5 mg/dL LAB CHEMISTRY METHOD 10/29/2024 2:01 PM [facility] Blood Venous blood specimen / Unknown Venipuncture / Unknown 10/29/2024 8:00 AM EST 10/29/2024 11:30 AM EST Janice Núñez MD LAB BLOOD ORDERABLES Final Resul t [facility] [address] [place] [address], * (ABNORMAL) Complete blood count (10/29/2024 8:00 AM EST) WBC 6.3 4.8 - 10.8 K/mcL LAB HEMETOLOGY METHOD 10/29/2024 12:10 PM [facility] RBC 3.70(L) 3.80 - 4.80 M/mcL LAB HEMETOLOGY METHOD 10/29/2024 12:10 PM [facility] Hemoglobin 10.1(L) 11.5 - 16.0 g/dL LAB HEMETOLOGY METHOD 10/29/2024 12:10 PM [facility] Hematocrit 35.2 35.0 - 47.0 % LAB HEMETOLOGY METHOD 10/29/2024 12:10 PM [facility] MCV 94.1 79.0 - 98.0 FL LAB HEMETOLOGY METHOD 10/29/2024 12:10 PM [facility] MCH 27.0 27.0 - 32.0 pcg LAB HEMETOLOGY METHOD 10/29/2024 12:10 PM EST [facility] MCHC 28.7(L) 32.0 - 37.0 g/dL LAB HEMETOLOGY METHOD 10/29/2024 12:10 PM [facility] RDW 14.5 11.0 - 15.0 % LAB HEMETOLOGY METHOD 10/29/2024 12:10 PM [facility] Platelets 504(H) 130 - 400 K/mcL LAB HEMETOLOGY METHOD 10/29/2024 12:10 PM [facility] MPV 9.3 7.0 - 11.0 FL LAB HEMETOLOGY METHOD 10/29/2024 12:10 PM [facility] NRBC 0.0 <1.0 % LAB HEMETOLOGY METHOD 10/29/2024 12:10 PM [facility] NRBC Absolute 0.00 <0.10 K/mcL LAB HEMETOLOGY METHOD 10/29/2024 12:10 PM [facility] Blood Venous blood specimen / Unknown Venipuncture / Unknown 10/29/2024 8:00 AM EST 10/29/2024 11:30 AM EST us Janice Núñez MD LAB BLOOD ORDERABLES Final Resul t [facility] [address] [place] [address], documented in this encounter Visit Diagnoses Diagnosis [...] documented as of this encounter Care Teams Novelty Worker Relationship Specialty Start Date End Date Kinjal Barron FNP [address] [place] [phone] PCP - General Family Medicine 03/06/25 documented as of this encounter
--- OUTSIDE RECORDS SUMMARY | 2025-09-19 10:40 | XMS_ITS | Encounter Summary ---
Author Organization [facility] Address [address] [place] [address] Care Team Providers Care Certified Physical Therapist Assistant Name Role Phone Kinjal Barron NOUGAT CANDY MAKER HELPER Primary Care Provid er Encounter Details Date Type Department Care Team (Late st Contact Info) Description 11/09/2024 Lab Requisition [facility] - Main Lab [address] [place] [address] Janice Núñez MD [address] [place] [address] Chronic obstructive pulmonary disease, unspecified (CMS/HCC V24, [...] Description 10/18/2025 10:45 AM EST Office Visit [facility] Hematology Oncology [address] [place] [address] Lashanda Mcgill, DO [address] [place] [address] documented as of this encounter Procedures Procedure Name Priority Date/Time Associated Diagnosis Comments COMPLETE BLOOD COUNT Routine 11/12/2024 8:41 AM EST Chronic obstructive pulmonary disease, unspecified (CMS/HCC) BASIC METABOLIC PANEL Routine 11/12/2024 8:41 AM EST Chronic obstructive pulmonary disease, unspecified ([facility]/HCC) documented in this encounter Results [...] 4:30 PM [facility] Anion Gap 6 3 - 11 LAB CHEMISTRY METHOD 11/12/2024 4:30 PM [facility] Glucose 90 70 - 100 mg/dL LAB CHEMISTRY METHOD 11/12/2024 4:30 PM [facility] BUN 11 5 - 25 mg/dL LAB CHEMISTRY METHOD 11/12/2024 4:30 PM [facility] Creatinine 0.98 0.50 - 1.10 mg/dL LAB CHEMISTRY METHOD 11/12/2024 4:30 PM [facility] eGFR 62 >=60 mL/min/1. 73m2 LAB CHEMISTRY METHOD 11/12/2024 4:30 PM EST [facility] Comment:Calculation based on the Chronic Kidney Disease Epidemiology Collaboration (CKD-EPI) equation refit without adjustment for race. BUN/Creatinine Ratio 11.2 LAB CHEMISTRY METHOD 11/12/2024 4:30 PM EST [facility] Calcium 9.3 8.5 - 10.5 mg/dL LAB CHEMISTRY METHOD 11/12/2024 4:30 PM EST [facility] Blood Venous blood specimen / Unknown Venipuncture / Unknown 11/12/2024 8:41 AM EST 11/12/2024 11:35 AM EST Janice Núñez MD LAB BLOOD ORDERABLES Final Resul t [facility] [address] [place] [address], * (ABNORMAL) Complete blood count (11/12/2024 8:41 AM EST) WBC 6.1 4.8 - 10.8 K/mcL LAB HEMETOLOGY METHOD 11/12/2024 11:55 AM [facility] RBC 3.50(L) 3.80 - 4.80 M/mcL LAB HEMETOLOGY METHOD 11/12/2024 11:55 AM [facility] Hemoglobin 9.2(L) 11.5 - 16.0 g/dL LAB HEMETOLOGY METHOD 11/12/2024 11:55 AM [facility] Hematocrit 32.4(L) 35.0 - 47.0 % LAB HEMETOLOGY METHOD 11/12/2024 11:55 AM [facility] MCV 93.9 79.0 - 98.0 FL LAB HEMETOLOGY METHOD 11/12/2024 11:55 AM EST [facility] MCH 26.7(L) 27.0 - 32.0 pcg LAB HEMETOLOGY METHOD 11/12/2024 11:55 AM EST [facility] MCHC 28.4(L) 32.0 - 37.0 g/dL LAB HEMETOLOGY METHOD 11/12/2024 11:55 AM [facility] RDW 14.4 11.0 - 15.0 % LAB HEMETOLOGY METHOD 11/12/2024 11:55 AM [facility] Platelets 435(H) 130 - 400 K/mcL LAB HEMETOLOGY METHOD 11/12/2024 11:55 AM [facility] MPV 9.7 7.0 - 11.0 FL LAB HEMETOLOGY METHOD 11/12/2024 11:55 AM [facility] [...] Final Resul t [facility] [address] [place] [address], documented in this encounter Visit Diagnoses Diagnosis [...] documented as of this encounter Care Teams Certified Physical Therapist Assistant Relationship Specialty Start Date End Date Kinjal Barron FNP [address] [place] [phone] PCP - General Family Medicine 03/06/25 documented as of this encounter
--- OUTSIDE RECORDS SUMMARY | 2025-09-19 10:40 | XMS_ITS ---
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 ([facility] V24, [facility] V28) 04/30/2025 Age-related osteoporosis wit h current pathological fracture of right femur with delayed healing 04/24/2025 Tachycardia 04/24/2025 Lung nodule 04/03/2025 Decreased hearing 01/09/2025 Urinary incontinence 01/09/2025 Seizure ([facility] V24, [facility] V28) 12/23/2024 Anemia 12/14/2024 Atopic dermatitis 10/06/2024 Cor pulmonale, acute ([facility] V24, [facility] V28) 10/06/2024 Acidosis 10/06/2024 Pneumonia 10/06/2024 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 09/21/2024 Overview (04/24/2025): IVAP Acute on chronic diastolic ( congestive) heart failure ([facility] V24, [facility] V28) 09/21/2024 Unspecified age-related cataract 09/21/2024 Unspecified atrial flutter ([facility] V24, [facility] V28) 09/21/2024 Congestive heart failure ([facility] V24, [facility] V 28) 08/23/2024 Post-traumatic stress disorder, unspecified 07/30 Somatic syndrome finding 08/23/2024 Pleuritic pain 11/23/2023 Primary localized osteoarthrosis of ankle and fo ot 09/08/2023 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 Polysomnogram Trilogy treatment study. [...] isode depressed, mild or moderate severity, unspecified ([facility] V24, [facility] V28) 10/09/2017 Acute on chronic respiratory failure with hypoxemia ([facility] V24, [facility] V28) 08/02/2017 Overview (09/12/2024): Historical tracheostomy Other secondary pulmonary hy pertension ([facility] V24, [facility] V28) 08/02/2017 Pulmonary emphysema ([facility] V24, [facility] V28) 0 07/29/2017 Thrombocytosis 06/27/2017 Dependence on supplemental oxygen 06/15/2017 Bipolar disorder ([facility] V24, [facility] V28) 05/28 Gastroesophageal reflux disease without esophagi tis 06/08/2017 Insomnia 06/08/2017 Retinal hemorrhage 06/08/2017 Current Treatment and Therapy Plans PACLitaxel / CARBOplatin - Non-Small Cell Lung Cancer / Thymomas and Thymic Carcinomas* Plan Start Date:06/25/2025 Plan Provider:Lashanda Mcgill DO Linked Problems 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
--- OUTSIDE RECORDS SUMMARY | 2025-09-19 10:40 | XMS_ITS | Encounter Summary ---
Author Organization [facility] Address [address] [place] [address] Care Team Providers Care Food And Beverage Manager Name Role Phone Kinjal Barron PHYSICAL BIOCHEMIST Primary Care Provid er Encounter Details Date Type Department Care Team (Late st Contact Info) Description 10/19/2024 Lab Requisition [facility] - Main Lab [address] [place] [address] Janice Núñez MD [address] [place] [address] Chronic obstructive pulmonary disease, unspecified (CMS/HCC V24, [...] Description 10/18/2025 10:45 AM EST Office Visit [facility] Hematology Oncology [address] [place] [address] Lashanda Mcgill, DO [address] [place] [address] documented as of this encounter Procedures Procedure Name Priority Date/Time Associated Diagnosis Comments COMPLETE BLOOD COUNT Routine 10/22/2024 8:17 AM EST Chronic obstructive pulmonary disease, unspecified (CMS/HCC) BASIC METABOLIC PANEL Routine 10/22/2024 8:17 AM EST Chronic obstructive pulmonary disease, unspecified ([facility]/HCC) documented in this encounter Results * [...] LAB CHEMISTRY METHOD 10/22/2024 4:26 PM EST [facility] Comment:Calculation based [...] Resul t [facility] [address] [place] [address], * (ABNORMAL) Complete blood count (10/22/2024 8:17 [...] 12:22 PM [facility] Blood Venous blood specimen / Unknown Venipuncture / Unknown 10/22/2024 8:17 AM EST 10/22/2024 11:52 AM EST us Janice Núñez MD LAB BLOOD ORDERABLES Final Resul t [facility] [address] [place] [address], documented in this encounter Visit Diagnoses Diagnosis [...] documented as of this encounter Care Teams Food And Beverage Manager Relationship Specialty Start Date End Date Kinjal Barron FNP [address] [place] [phone] PCP - General Family Medicine 03/06/25 documented as of this encounter
--- OUTSIDE RECORDS SUMMARY | 2025-09-19 10:40 | XMS_ITS | Clinical Summary ---
Author Organization [facility] Address [address] [place] [address] Care Team Providers Care Internet Media Planner Name Role Phone Debra Ji MD Primary Care Provider [phone] Allergies Active Allergy Reactions Criticality Noted Date [...] 0 Active zoster vaccine live, PF, (ZOSTAVAX) 94853 UNT/0.65ML injection Inject 0.65 mL under the [...] age to complete this topic Care Teams Internet Media Planner Relationship Specialty Start Date End Date Debra Ji MD PCP - General Internal Medicine 06/27/17
--- OUTSIDE RECORDS SUMMARY | 2025-09-19 10:40 | XMS_ITS | Encounter Summary ---
Author Organization [facility] Address [address] [place] [address] Care Team Providers Care Tank House Operator Name Role Phone Kinjal Barron BELT BUILDER Primary Care Provid er Encounter Details Date Type Department Care Team (Late st Contact Info) Description 10/15/2024 Lab Requisition [facility] - Main Lab [address] [facility] [address] [place] [address] Alley San NP [address] [facility] [place] [address] Chronic obstructive pulmonary disease, unspecified (CMS/HCC V24, [...] Description 10/18/2025 10:45 AM EST Office Visit [facility] Hematology Oncology [address] [place] [address] Lashanda Mcgill, DO [address] [place] [address] documented as of this encounter Procedures Procedure Name Priority Date/Time Associated Diagnosis Comments COMPLETE BLOOD COUNT Routine 10/15/2024 8:35 AM EST Chronic obstructive pulmonary disease, unspecified (CMS/HCC) BASIC METABOLIC PANEL Routine 10/15/2024 8:35 AM EST Chronic obstructive pulmonary disease, unspecified ([facility]) documented in this encounter Results * (ABNORMAL) Basic metabolic panel (10/15/2024 8:35 AM EST) Sodium 140 133 - 145 mmol/L LAB CHEMISTRY METHOD 10/15/2024 1:16 PM [facility] Potassium 3.8 3.5 - 5.5 mmol/L LAB CHEMISTRY METHOD 10/15/2024 1:16 PM [facility] Chloride 90(L) 96 - 110 mmol/L LAB CHEMISTRY METHOD 10/15/2024 1:16 PM [facility] CO2 40(H) 21 - 32 mmol/L LAB CHEMISTRY METHOD 10/15/2024 1:16 PM [facility] Anion Gap 10 3 - 11 LAB CHEMISTRY METHOD 10/15/2024 1:16 PM [facility] Glucose 81 70 - 100 mg/dL LAB CHEMISTRY METHOD 10/15/2024 1:16 PM [facility] BUN 15 5 - 25 mg/dL LAB CHEMISTRY METHOD 10/15/2024 1:16 PM [facility] Creatinine 1.00 0.50 - 1.10 mg/dL LAB CHEMISTRY METHOD 10/15/2024 1:16 PM [facility] eGFR 61 >=60 mL/min/1. 73m2 LAB CHEMISTRY METHOD 10/15/2024 1:16 PM EST [facility] Comment:Calculation based on the Chronic Kidney Disease Epidemiology Collaboration (CKD-EPI) equation refit without adjustment for race. BUN/Creatinine Ratio 15.0 LAB CHEMISTRY METHOD 10/15/2024 1:16 PM EST [facility] Calcium 9.6 8.5 - 10.5 mg/dL LAB CHEMISTRY METHOD 10/15/2024 1:16 PM [facility] Blood Venous blood specimen / Unknown Venipuncture / Unknown 10/15/2024 8:35 AM EST 10/15/2024 11:13 AM EST Alley San NP LAB BLOOD ORDERABLES Final Re sult [facility] [address] [place] [address], * (ABNORMAL) Complete blood count (10/15/2024 8:35 AM EST) WBC 8.3 4.8 - 10.8 K/mcL LAB HEMETOLOGY METHOD 10/15/2024 12:51 PM [facility] RBC 3.80 3.80 - 4.80 M/mcL LAB HEMETOLOGY METHOD 10/15/2024 12:51 PM [facility] Hemoglobin 10.7(L) 11.5 - 16.0 g/dL LAB HEMETOLOGY METHOD 10/15/2024 12:51 PM [facility] Hematocrit 37.8 35.0 - 47.0 % LAB HEMETOLOGY METHOD 10/15/2024 12:51 PM [facility] MCV 98.4(H) 79.0 - 98.0 FL LAB HEMETOLOGY METHOD 10/15/2024 12:51 PM [facility] MCH 27.9 27.0 - 32.0 pcg LAB HEMETOLOGY METHOD 10/15/2024 12:51 PM EST [facility] MCHC 28.3(L) 32.0 - 37.0 g/dL LAB HEMETOLOGY METHOD 10/15/2024 12:51 PM [facility] RDW 15.2(H) 11.0 - 15.0 % LAB HEMETOLOGY METHOD 10/15/2024 12:51 PM [facility] Platelets 474(H) 130 - 400 K/mcL LAB HEMETOLOGY METHOD 10/15/2024 12:51 PM [facility] MPV 9.6 7.0 - 11.0 FL LAB HEMETOLOGY METHOD 10/15/2024 12:51 PM [facility] NRBC 0.0 <1.0 % LAB HEMETOLOGY METHOD 10/15/2024 12:51 PM [facility] NRBC Absolute 0.00 <0.10 K/mcL LAB HEMETOLOGY METHOD 10/15/2024 12:51 PM [facility] Blood Venous blood specimen / Unknown Venipuncture / Unknown 10/15/2024 8:35 AM EST 10/15/2024 11:13 AM EST Alley San SUB PRIOR LAB BLOOD ORDERABLES Final Re sult [facility] [address] [place] [address], documented in this encounter Visit Diagnoses Diagnosis [...] documented as of this encounter Care Teams Tank House Operator Relationship Specialty Start Date End Date Kinjal Barron FNP [address] [place] [id number] PCP - General Family Medicine 03/06/25 documented as of this encounter
--- OUTSIDE RECORDS SUMMARY | 2025-09-19 10:41 | XMS_ITS | Clinical Summary ---
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 Active alendronate (FOSAMAX) 70 mg tablet Take 1 tablet (70 mg total) by mouth every 7 (seven) days. 03/13/20 24 Active ARIPiprazole (ABILIFY) 10 mg tablet Take 1 tablet (10 mg total) by mouth 1 (one) time each day. 03/13/20 24 Active cholecalcifero l, vitamin D3, 25 mcg (1,000 unit) tablet,chewabl e Chew 1,000 Units 1 (one) time each day in the morning. 08/16/20 Active fluticasone furoate-vilant Whitney (Breo Ellipta) 200-25 mcg/dose inhaler INHALE 1 PUFF DIRECTED ONCE A DAY 03/19/20 Active gabapentin (NEURONTIN) 100 mg capsule Take 1 capsule (100 mg total) by mouth 2 (two) times a day with meals. 08/16/20 Active lamoTRIgine (LaMICtal) 200 mg tablet Take 1 tablet (200 mg total) by mouth 2 (two) times a day. 07/19/20 Active mirtazapine (REMERON) 15 mg tablet Take 0.5 tablets (7.5 mg total) by mouth at bedtime. 08/16/20 Active montelukast (SINGULAIR) 10 mg tablet Take 1 tablet (10 mg total) by mouth 1 (one) time each day. 08/16/20 Active pantoprazole (PROTONIX) 40 mg EC tablet Take 1 tablet (40 mg total) by mouth 1 (one) time each day. 30 minutes before breakfast daily 04/18/20 Active theophylline (MANDY-24) 300 mg 24 hr capsule Take 1 capsule (300 mg total) by mouth 2 (two) times a day. Active vilazodone (VIIBRYD) 40 mg tablet Take 1 tablet (40 mg total) by mouth 1 (one) time each day in the morning. 03/26/20 Active fluticasone propionate (FLONASE) 50 mcg/actuation nasal spray Administer 1 spray into each nostril 2 (two) times a day. Shake gently. Before first use, prime pump. After use, clean tip and replace cap. 16 g 3 10/03/20 Active metoprolol succinate (TOPROL-XL) 100 mg 24 hr tablet Take 1 tablet (100 mg total) by mouth 1 (one) time each day. Do not crush or chew. 30 each 10/03/20 24 2024 Active loratadine (CLARITIN) 10 mg tablet Take 1 tablet (10 mg total) by mouth 1 (one) time each day. Active ipratropium-al buteroL (DUONEB) 0.5-2.5 mg/3 mL nebulizer solutionIndica tions:Chronic obstructive pulmonary disease, unspecified COPD type ([facility] V24, [facility] V28),Chronic respiratory failure with hypercapnia ([facility] V24, [facility] V28) Take 3 mL by nebulization 2 (two) times a day if needed for wheezing. 360 mL 2 04/09/20 25 2025 Active Additional Information Patient taking differently:3 mL nebulization4 times daily PRN, shortness of breath, Reported on 09/05/2025 lidocaine-pril ocaine (EMLA) 2.5-2.5 % cream Apply to port site 1 hour prior to each time port is accessed 30 g 1 06/26/20 Active Additional Information Patient not taking.Reported on 09/05/2025 dexAMETHasone (DECADRON) 4 mg tabletIndicati ons:Squamous cell carcinoma of left lung ([facility] V24, [facility] V28) Take 8 mg (two tablets) once daily, starting the day after treatment, for three days (days 2-4). Take in the morning with food. 30 tablet 1 06/26/20 Active Additional Information Patient not taking.Reported on 09/05/2025 apixaban (Eliquis) 5 mg tablet Take 1 tablet (5 mg total) by mouth 2 (two) times a day. 07/11/20 25 2025 Active docusate sodium (COLACE) 100 mg capsule Take 1 capsule (100 mg total) by mouth 1 (one) time each day if needed for constipation. Active senna (SENOKOT) 8.6 mg tablet Take 1 tablet (8.6 mg total) by mouth at bedtime as needed for constipation. Active furosemide (LASIX) 20 mg tablet Take 1 tablet (20 mg total) by mouth 1 (one) time each day. Active calcium carbonate (TUMS) 500 mg (200 mg elemental calcium) chewable tablet Chew 1 tablet (500 mg total) 2 (two) times a day. Active albuterol sulfate 90 mcg/actuation aerosol powdr breath activated Inhale 1 puff by mouth every 6 (six) hours if needed (COPD). Active acetaZOLAMIDE (DIAMOX) 250 mg tablet Take 1 tablet (250 mg total) by mouth 3 (three) times a week. TUESDAY, TUESDAY, Tuesday08/15/20 Active ferrous sulfate 324 mg (65 mg elemental iron) EC tablet Take 1 tablet (324 mg total) by mouth 3 (three) times a week. TUESDAY, TUESDAY, Tuesday01/11/20 Active guaiFENesin (MUCINEX) 600 mg 12 hr tablet Take 1 tablet (600 mg total) by mouth 2 (two) times a day. 04/08/20 Active omega 2-lfz-csb-fish oil 300 mg (120 mg- 180mg)-1,000 mg capsule Take 1,000 mg by mouth 2 (two) times a day. 08/15/20 Active predniSONE (DELTASONE) 5 mg tablet Take 1 tablet (5 mg total) by mouth 1 (one) time each day. 08/30/20 Active traMADoL (ULTRAM) 50 mg tablet Take 1 tablet (50 mg total) by mouth every 6 (six) hours if needed for moderate pain. 09/02/20 Active Oxygen Therapy (O2) gas Inhale 2 L/min continuously. via nasal canula 2L while at rest, 3-4L with activity and ventilation system at bedtime Active aspirin 81 mg EC tablet Take 1 tablet (81 mg total) by mouth 1 (one) time each day. 09/06/20 25 2025 Active atorvastatin (Lipitor) 40 mg tablet Take 1 tablet (40 mg total) by mouth at bedtime. 09/06/20 25 2025 Active calcium carbonate-kye min D (Calcium 500 + D) 500 mg-5 mcg (200 unit) per tablet Take 1 tablet by mouth 2 (two) times a day. 08/08/20 24 2024 Discontinued fluocinolone acetonide oiL 0.01 % drops Administer 4 drops into affected ear(s) every other day if needed (other). 07/23/20 24 2024 Discontinued lamoTRIgine (LaMICtal) 150 mg tablet Take 2 tablets (300 mg total) by mouth at bedtime. 08/02/20 24 2024 Discontinued salicylic acid (T/LYNN) 3 % shampoo Apply one drop every 24-48 hours as needed. 03/08/20 24 2024 Discontinued furosemide (LASIX) 40 mg tablet Take 1 tablet (40 mg total) by mouth 1 (one) time each day. 90 each 1 10/03/20 24 2024 Discontinued(E ntered in Error) albuterol HFA (PROAIR HFA ; PROVENTIL HFA ; VENTOLIN HFA) 90 mcg/actuation inhaler Inhale 2 puffs by mouth every 4 (four) hours if needed (cough). 17 g 3 10/03/20 24 2024 Discontinued propylene glycol/peg 400/PF (SYSTANE, PF, OPHT) Administer into affected eye(s). 2024 Discontinued prochlorperazi ne (COMPAZINE) 10 mg tablet Take 1 tablet (10 mg total) by mouth every 6 (six) hours if needed for nausea. 60 tablet 3 07/18/20 25 2024 Additional Information Patient not taking.Reported on 09/05/2025 hydrocortisone 2.5 % cream Apply topically 2 (two) times a day. 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 ([facility] V24, [facility] V28) 04/30/2025 Age-related osteoporosis wit h current pathological fracture of right femur with delayed healing 04/24/2025 Tachycardia 04/24/2025 Lung nodule 04/03/2025 Decreased hearing 01/09/2025 Urinary incontinence 01/09/2025 Seizure ([facility] V24, [facility] V28) 12/23/2024 Anemia 12/14/2024 Atopic dermatitis 10/06/2024 Cor pulmonale, acute ([facility] V24, [facility] V28) 10/06/2024 Acidosis 10/06/2024 Pneumonia 10/06/2024 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 09/21/2024 Overview (04/24/2025): IVAP Acute on chronic diastolic ( congestive) heart failure ([facility] V24, [facility] V28) 09/21/2024 Unspecified age-related cataract 09/21/2024 Unspecified atrial flutter [place] [place] [facility] V28[place] 09/21/2024 Congestive heart failure [place] [place], [facility] [place] 28) 08/23/2024 Post-traumatic stress disorder, unspecified 07/30 Somatic syndrome finding 08/23/2024 Pleuritic pain 11/23/2023 Primary localized osteoarthrosis of ankle and fo ot 09/08/2023 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 Polysomnogram Trilogy treatment [...] isode depressed, mild or moderate severity, unspecified ([facility] [place], [facility] V28) 10/09/2017 Acute on chronic respiratory failure with hypoxemia ([facility] [place], [facility] V28) 08/02/2017 Overview (09/12/2024): Historical tracheostomy Other secondary pulmonary hy pertension ([facility] [place], [facility] V28) 08/02/2017 Pulmonary emphysema ([facility] [place], [facility] V28) 0 07/29/2017 Thrombocytosis 06/27/2017 Dependence on supplemental oxygen 06/15/2017 Bipolar disorder ([facility] [place], [facility]) 05/28 Gastroesophageal reflux disease without esophagi tis 06/08/2017 Insomnia 06/08/2017 Retinal hemorrhage 06/08/2017 Resolved Problems Problem Noted Date Diagnosed Date Resolved Date Acute encephalopathy 09/05/2025 025 Encounters Date Type Department Care Team Description 09/17/2025 11:45 AM EDT Office Visit [facility] Hematology Oncology [address] [place] [phone] Lashanda Mcgill DO Squamous cell carcinoma of left lung ([facility] [place], [facility] V28) (Primary Dx); Personal history of malignant neoplasm of lung; Malignant neoplasm of overlapping sites of left bronchus and lung ([facility] V24, [facility] V28) 09/17/2025 Lab Requisition [facility] [address] [place] [phone] Janice Núñez MD Malignant neoplasm of unspecified part of left bronchus or lung ([facility] [place], [facility] V28); Chronic respiratory failure with hypercapnia ([facility] [place], [facility] V28) 09/12/2025 Telephone [facility] Hematology Oncology [address] [place] [phone] Elke Duong RN 09/10/2025 Lab Requisition [facility] [address] [place] [phone] Janice Núñez MD Malignant neoplasm of unspecified part of left bronchus or lung ([facility] [place], [facility] V28); Chronic respiratory failure with hypercapnia ([facility] [place], [facility] V28) 09/09/2025 Lab Requisition [facility] [address] [place] [phone] Janice Núñez MD Chronic obstructive pulmonary disease, unspecified ([facility] [place], [facility] V28); Malignant neoplasm of unspecified part of unspecified bronchus or lung ([facility] [place], [facility] V28) 09/05/2025 10:39 AM EDT - 09/06/2025 6:08 PM EDT Hospital Encounter [facility] Intermediate Care Unit [address] [place] [phone] Glenroy Paez MD Flores, Carlos M, MD Bell, Alistair A, MD Stroke-like symptoms (Primary Dx) Discharge Disposition: Long Term Facility 09/05/2025 Telephone [facility] Hematology Oncology [address] [place] [phone] Erika Tran, RN 09/03/2025 Lab Requisition [facility] [address] [place] [phone] Janice Núñez MD Malignant neoplasm of unspecified part of left bronchus or lung ([facility] [place], [facility] [place] Chronic respiratory failure with hypercapnia [place] [place], [facility] [place] 09/01/2025 Lab Requisition [facility] [address] [place] [phone] Janice Núñez MD Frequency of micturition; Fever, unspecified 08/30/2025 Lab Requisition [facility] [address] [place] [phone] Janice Núñez MD Hyperkalemia 08/27/2025 Lab Requisition [facility] [address] [place] [phone] Janice Núñez MD Malignant neoplasm of unspecified part of left bronchus or lung ([facility] [place], [facility] [place]); Chronic respiratory failure with hypercapnia ([facility] [place], [facility] [place]) 08/20/2025 Lab Requisition [facility] [address] [place] [phone] Janice Núñez MD Malignant neoplasm of unspecified part of left bronchus or lung ([facility] [place], [facility] [place]); Respiratory failure, unspecified, unspecified whether with hypoxia or hypercapnia ([facility] V24, [facility] V28); Other mcc (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 therapy 08/09/2025 Telephone [facility] Hematology Oncology [address] [place] [phone] Lashanda Mcgill, 08/07/2025 Telephone [facility] Hematology Oncology [address] [place] [phone] Debbie Salomon MA 08/01/2025 10:25 AM EDT - 08/01/2025 11:59 PM EDT Hospital Encounter [facility] Radiation Oncology [address] [place] [phone] Debra Loya, DEVORA Squamous cell carcinoma of left lung ([facility] [place], [facility] V28) Discharge Disposition: Home or Self Care 07/30/2025 Telephone [facility] Hematology Oncology [address] [place] [phone] Lashanda Mcgill, 07/22/2025 Telephone [facility] Radiation Oncology [address] [place] [phone] 07/19/2025 9:23 AM EDT - 07/19/2025 11:59 PM EDT Hospital Encounter [facility] Infusion Center [address] [place] [phone] Squamous cell carcinoma of left lung ([facility] V24, [facility] V28) (Primary Dx) Discharge Disposition: Home or Self Care 07/19/2025 Social Work [facility] Infusion Center [address] [place] [phone] Tika Duarte LMSW 07/16/2025 2:45 PM EDT Office Visit [facility] Hematology Oncology [address] [place] [phone] Lashanda Mcgill, Squamous cell carcinoma of left lung ([facility] V24, [facility] V28) (Primary Dx); Chronic respiratory failure with hypercapnia ([facility] [place], [facility] [place]) 07/16/2025 1:52 PM EDT - 07/16/2025 11:59 PM EDT Hospital Encounter [facility] Radiation Oncology [address] [place] [phone] Idalia Zhou, DILMA Squamous cell carcinoma of left lung ([facility] V24, [facility] [place]) (Primary Dx) Discharge Disposition: Home or Self Care 07/10/2025 Telephone [facility] Hematology Oncology [address] [place] [phone] Lashanda Mcgill DO 07/09/2025 12:11 PM EDT - 07/09/2025 11:59 PM EDT Hospital Encounter [facility] Interventional Radiology [address] [place] [phone] Squamous cell carcinoma of left lung ([facility] [place], [facility] [place]) Discharge Disposition: Home or Self Care 07/05/2025 9:44 PM EDT - 07/07/2025 1:04 PM EDT Hospital Encounter [facility] Intermediate Care Unit [address] [place] [phone] Emani Olivarez MD Jones, Christopher, MD Bell, Alistair A, MD Shortness of breath (Primary Dx) Discharge Disposition: Home-Health Care [facility] 06/27/2025 Telephone [facility] Hematology Oncology [address] [place] [phone] Martine Tovar MA 06/25/2025 11:45 AM EDT Office Visit [facility] Hematology Oncology [address] [place] [phone] Sallie Valdez PA Squamous cell carcinoma of left lung ([facility] V24, [facility] V28) (Primary Dx); Chronic respiratory failure with hypercapnia ([facility] V24, [facility] [place] Mild anemia from Last 3 Months Immunizations Immunization Administration [...] Comments Depression 10/09/2017 DX:Depression Bipolar I disorder ([facility] V24, [facility] V28) 06/10/2017 DX:Bipolar I disorder (HCC) Chronic obstructive pulmonar y disease ([facility] V24, [facility] V28) 07/29/2017 DX:Chronic obstructive pulm onary disease ([facility]), will bipap Chronic respiratory failure with hypercapnia ([facility] V24, [facility] V28) 08/02/2017 DX:Chronic resp iratory failure with hypercapnia ([facility]), uses trelegy machine/ will bring dos Dependence [...] Arrhythmia Afib , hx Emphysema of lung ([facility] V 24, [facility] V28) per daughter HL (hearing loss) wears hearing aids Full dentures Lung cancer ([facility] V24, [facility] V28) 03/2025 Asthma 1111 Psychiatric illness Family [...] Sister 2 Rubia bladder cancer Sister 2 Rbuia Relation Name Status Comments Brother 1 Alive Brother 2 Alive Brother 3 Jose C Father Mother Mother's side Alive Sister 1 Alive Sister 2 Rubia Social History Tobacco Use Types Packs/Day Years Used Date Smoking Tobacco: Former Cigarettes 2 40 0 12/30/1972 - 12/30/2006 Smokeless Tobacco: Never Tobacco Cessation:Counseling Given: Not Answered Comments:Quit 2017 Alcohol Use Standard Drinks/Week Comments [...] F) 09/17/2025 12:05 PM EDT Respiratory Rate 19 09/06/2025 3:14 PM EDT Oxygen Saturation 90% 09/17/2025 12:05 PM EDT 3L O2 Inhaled Oxygen Concentration - - Weight 89.4 kg (197 lb) 09/05/2025 2:54 PM EDT Height 154.9 cm (5' 1 ) 09/17/2025 12:05 PM EDT Body Mass Index 37.22 09/05/2025 2:54 PM EDT Plan of Treatment Upcoming Encounters Date Type Department Care Team (Late st Contact Info) Description 10/18/2025 10:45 AM EST Office Visit [facility] Hematology Oncology [address] [place] [phone] Lashanda Mcgill, DO [address] [place] [address] Health Maintenance Due Date Last Done Comments DTaP,Tdap,and Td Vaccines (1 - Tdap) 1973 RSV Immunization Adult Patients (1 - Risk 50-74 years 1-dose series) 2004 Medicare Annual Wellness Visit 10/30/2022 Social Influencers of Health Screening 10/30/2022 Zoster Vaccines (2 of 2) 06/19/2024 04/24/2024 COVID-19 Vaccine ( season) 2025 04/30/2024, 04/24/2024, 04/07/2022, Additional history exists Influenza Vaccine (#1) 2025 , 09/05/2018, 08/24/2015, Additional history exists Breast Cancer Screening 03/22/2026 03/22/20, 03/21/2024, 02/16/2023, Additional history exists Falls Risk Assessment 09/06/2026 09/06/2025, 024 Hypertension/CHF/CAD Annual BMP Blood Test 09/18/2026 09/18/2025, 09/11/2025, 09/09/2025, Additional history exists Colorectal Cancer Screening: Colonoscopy 04/27/2029 04/27/2024 Cholesterol Screening (Lipid Panel) 09/06/2030 09/06/2025, 02/09/2024 Osteoporosis Screening (Bone Density Screening) 03/22/2034 03/22/2024, [...] this topic Medical Devices Implanted Type Area Aboriginal Liaison Officer Device Identifier Shelf Expiration Date Model / Serial / Lot Port Pwr Isp Attach 6f Interm Galina - [id number] Implanted:Qty : 1 on 07/09/2025 by Jesica Henderson MD at [facility] Central/Per ipheral Catheters and Ports Right: Internal Jugular CR BARD PERIPHERAL VASCULAR [id number] 09/27/2025 [id number] / / [id number] Marker Cobra Superlock - Sna - [id number] Implanted:Qty : 1 on 04/03/2025 by Justine Wong MD at [facility] Imaging Implants Left: Lung [employer] SU[employer] [id number] 08/27/2028 [id number] / [id number] / [id number] Description:LEFT UPPER LOBE Procedures Procedure Name Priority Date/Time Associated Diagnosis Comments BASIC METABOLIC PANEL Routine 09/18/2025 5:01 AM EDT Malignant neoplasm of unspecified part of left bronchus or lung (CMS/HCC V24, CMS/HCC V28) Chronic respiratory failure with hypercapnia (CMS/HCC V24, CMS/HCC V28) COMPLETE BLOOD COUNT Routine 09/18/2025 5:01 AM EDT Malignant neoplasm of unspecified part of left bronchus or lung (CMS/HCC V24, CMS/HCC V28) Chronic respiratory failure with hypercapnia (CMS/HCC V24, CMS/HCC V28) BASIC METABOLIC PANEL Routine 09/11/2025 5:56 AM EDT Malignant neoplasm of unspecified part of left bronchus or lung (CMS/HCC V24, CMS/HCC V28) Chronic respiratory failure with hypercapnia (CMS/HCC V24, CMS/HCC V28) COMPLETE BLOOD COUNT Routine 09/11/2025 5:56 AM EDT Malignant neoplasm of unspecified part of left bronchus or lung (CMS/HCC V24, CMS/HCC V28) Chronic respiratory failure with hypercapnia (CMS/HCC V24, CMS/HCC V28) BASIC METABOLIC PANEL Routine 09/09/2025 7:29 AM EDT Chronic obstructive pulmonary disease, unspecified (CMS/HCC V24, CMS/HCC V28) Malignant neoplasm of unspecified part of unspecified bronchus or lung (CMS/HCC V24, CMS/HCC V28) ECG ANNOTATED 09/07/2025 LIPID PANEL WITH REFLEX TO DIRECT LDL Add-On 09/06/2025 6:02 AM EDT CBC WITH AUTO DIFFERENTIAL Routine 09/06/2025 6:02 AM EDT AMMONIA Routine 09/06/2025 6:02 AM EDT LAMOTRIGINE LEVEL Timed 09/06/2025 6:0 2 AM EDT CBC AND DIFFERENTIAL Routine 09/06/2025 6:02 AM EDT MAGNESIUM Routine 09/06/2025 6:02 AM EDT BASIC METABOLIC PANEL Routine 09/06/2025 6:02 AM EDT MR BRAIN WO AND W CONTRAST Routine 09/05/2025 6:21 PM EDT OXYGEN THERAPY, ADULT Routine 09/05/2025 2:21 PM EDT OXYGEN THERAPY, ADULT Routine 09/05/2025 2:21 PM EDT RESPIRATORY VIRUS PANEL MOLECULAR STUDY STAT 09/05/2025 2:10 PM EDT POCT GLUCOSE BLOOD Routine 09/05/2025 12 :33 PM EDT VENOUS BLOOD GAS STAT 09/05/2025 12:3 3 PM EDT XR CHEST 1 VIEW STAT 09/05/2025 12:28 PM EDT RHYTHM ECG, REPORT Routine 09/05/2025 11 :23 AM EDT C-REACTIVE PROTEIN Add-On 09/05/2025 11 :20 AM EDT HEPATIC FUNCTION PANEL Add-On 09/05/2025 11:20 AM EDT MAGNESIUM STAT Add-on 09/05/2025 11:20 AM EDT TROPONIN I HIGH SENSITIVITY Timed 09/05/2025 11:20 AM EDT CBC WITH AUTO DIFFERENTIAL STAT 09/05/2025 11:20 AM EDT ACTIVATED PARTIAL THROMBOPLASTIN TIME STAT 09/05/2025 11:20 AM EDT PROTHROMBIN TIME WITH INR STAT 09/05/2025 11:20 AM EDT BASIC METABOLIC PANEL STAT 09/05/2025 11:20 AM EDT CBC AND DIFFERENTIAL STAT 09/05/2025 11:20 AM EDT ECG 12-LEAD STAT 09/05/2025 11:[address] ANGIO HEAD/NECK STROKE WO AND/OR W CONTRAST STAT 09/05/2025 11:[address] HEAD STROKE WO CONTRAST STAT 09/05/2025 11:03 AM EDT BASIC METABOLIC PANEL Routine 09/04/2025 6:53 AM EDT Malignant neoplasm of unspecified part of left bronchus or lung (CMS/HCC V24, CMS/HCC V28) Chronic respiratory failure with hypercapnia (CMS/HCC V24, CMS/HCC V28) COMPLETE BLOOD COUNT Routine 09/04/2025 6:53 AM EDT Malignant neoplasm of unspecified part of left bronchus or lung (CMS/HCC V24, CMS/HCC V28) Chronic respiratory failure with hypercapnia (CMS/HCC V24, CMS/HCC V28) URINALYSIS WITH REFLEX MICROSCOPIC Routine 08/31/2025 4:00 PM EDT Frequency of micturition Fever, unspecified URINALYSIS WITH REFLEX MICROSCOPIC Routine 08/31/2025 4:00 PM EDT Frequency of micturition Fever, unspecified CULTURE URINE Routine 08/31/2025 4:00 PM EDT Frequency of micturition Fever, unspecified BASIC METABOLIC PANEL Routine 08/30/2025 6:02 AM EDT Hyperkalemia BASIC METABOLIC PANEL Routine 08/28/2025 9:04 AM EDT Malignant neoplasm of unspecified part of left bronchus or lung (CMS/HCC V24, CMS/HCC V28) Chronic respiratory failure with hypercapnia (CMS/HCC V24, CMS/HCC V28) COMPLETE BLOOD COUNT Routine 08/28/2025 9:04 AM EDT Malignant neoplasm of unspecified part of left bronchus or lung (CMS/HCC V24, CMS/HCC V28) Chronic respiratory failure with hypercapnia (CMS/HCC V24, CMS/HCC V28) VITAMIN D 25 HYDROXY Routine 08/20/2025 4:50 AM EDT Malignant neoplasm of unspecified part of left bronchus or lung (CMS/HCC V24, CMS/HCC V28) Respiratory failure, unspecified, unspecified whether with hypoxia or hypercapnia (CMS/HCC V24, CMS/HCC V28) Other mcc (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 therapy VITAMIN B12 Routine 08/20/2025 4:50 AM EDT Malignant neoplasm of unspecified part of left bronchus or lung (CMS/HCC V24, CMS/HCC V28) Respiratory failure, unspecified, unspecified whether with hypoxia or hypercapnia (CMS/HCC V24, CMS/HCC V28) Other mcc (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 therapy HEMOGLOBIN A1C Routine 08/20/2025 4:50 AM EDT Malignant neoplasm of unspecified part of left bronchus or lung (CMS/HCC V24, CMS/HCC V28) Respiratory failure, unspecified, unspecified whether with hypoxia or hypercapnia (CMS/HCC V24, CMS/HCC V28) Other mcc (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 therapy THYROID STIMULATING HORMONE Routine 08/20/2025 4:50 AM EDT Malignant neoplasm of unspecified part of left bronchus or lung (CMS/HCC V24, CMS/HCC V28) Respiratory failure, unspecified, unspecified whether with hypoxia or hypercapnia (CMS/HCC V24, CMS/HCC V28) Other terminal press operator (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 therapy FOLATE Routine 08/20/2025 4:50 AM EDT Malignant neoplasm of unspecified part of left bronchus or lung (CMS/HCC V24, CMS/HCC V28) Respiratory failure, unspecified, unspecified whether with hypoxia or hypercapnia (CMS/HCC V24, CMS/HCC V28) Other mcc (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 therapy COMPREHENSIVE METABOLIC PANEL Routine 08/20/2025 4:50 AM EDT Malignant neoplasm of unspecified part of left bronchus or lung (CMS/HCC V24, CMS/HCC V28) Respiratory failure, unspecified, unspecified whether with hypoxia or hypercapnia (CMS/HCC V24, CMS/HCC V28) Other mcc (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 therapy COMPLETE BLOOD COUNT Routine 08/20/2025 4:50 AM EDT Malignant neoplasm of unspecified part of left bronchus or lung (CMS/HCC V24, CMS/HCC V28) Respiratory failure, unspecified, unspecified whether with hypoxia or hypercapnia (CMS/HCC V24, CMS/HCC V28) Other terminal press operator (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 therapy CBC WITH AUTO DIFFERENTIAL [...] ECG 12-LEAD STAT 07/05/2025 9:40 PM EDT COLONOSCOPY Routine 04/27/2024 DEPRESSION SCREENING Routine 04/16/2024 [facility] SCREENING DIGITAL Routine 03/22/2024 8:50 AM EDT Encounter for screening mammogram for malignant neoplasm of breast [facility] DEXA AXIAL SKELETON Routine 03/22/2024 8:14 AM EDT Encounter for screening for osteoporosis HEPATITIS C SCREENING Routine 02/09/2024 [place]ALL[place] RISK ASSESSMENT Routine 02/09/2024 from Last 3 Months or Most Recently Relevant to Health Maintenance Results * (ABNORMAL) Complete blood count (09/18/2025 5:01 AM EDT) Only the most recent of5 resultswithin the time period is included. WBC 7.6 4.8 - 10.8 K/mcL LAB HEMETOLOGY METHOD 09/18/2025 11:08 AM [facility] RBC 3.60(L) 3.80 - 4.80 M/mcL LAB HEMETOLOGY METHOD 09/18/2025 11:08 AM [facility] Hemoglobin 10.3(L) 11.5 - 16.0 g/dL LAB HEMETOLOGY METHOD 09/18/2025 11:08 AM [facility] Hematocrit 35.4 35.0 - 47.0 % LAB HEMETOLOGY METHOD 09/18/2025 11:08 AM [facility] MCV 97.3 79.0 - 98.0 FL LAB HEMETOLOGY METHOD 09/18/2025 11:08 AM [facility] MCH 28.3 27.0 - 32.0 pcg LAB HEMETOLOGY METHOD 09/18/2025 11:08 AM [facility] MCHC 29.1(L) 32.0 - 37.0 g/dL LAB HEMETOLOGY METHOD 09/18/2025 11:08 AM [facility] RDW 16.0(H) 11.0 - 15.0 % LAB HEMETOLOGY METHOD 09/18/2025 11:08 AM [facility] Platelets 400 130 - 400 K/mcL LAB HEMETOLOGY METHOD 09/18/2025 11:08 AM [facility] MPV 9.6 7.0 - 11.0 FL LAB HEMETOLOGY METHOD 09/18/2025 11:08 AM [facility] NRBC 0.0 <1.0 % LAB HEMETOLOGY METHOD 09/18/2025 11:[address] [facility] NRBC Absolute 0.00 <0.10 K/mcL LAB HEMETOLOGY METHOD 09/18/2025 11:08 AM [facility] Blood Venous blood specimen / Unknown Venipuncture / Unknown 09/18/2025 5:01 AM EDT 09/18/2025 10:13 AM EDT us Janice Núñez MD LAB BLOOD ORDERABLES Final Resul t [facility] [address] [place] [address], [place] [phone] * (ABNORMAL) Basic metabolic panel (09/18/2025 5:01 AM EDT) Only the most recent of10 resultswithin the time period is included. Sodium 139 133 - 145 mmol/L LAB CHEMISTRY METHOD 09/18/2025 12:44 PM [facility] Potassium 4.1 3.5 - 5.5 mmol/L LAB CHEMISTRY METHOD 09/18/2025 12:44 PM [facility] Chloride 93(L) 96 - 110 mmol/L LAB CHEMISTRY METHOD 09/18/2025 12:44 PM [facility] CO2 39(H) 21 - 32 mmol/L LAB CHEMISTRY METHOD 09/18/2025 12:44 PM [facility] Anion Gap 7 3 - 11 LAB CHEMISTRY METHOD 09/18/2025 12:44 PM [facility] Glucose 64(L) 70 - 100 mg/dL LAB CHEMISTRY METHOD 09/18/2025 12:44 PM [facility] BUN 15 5 - 25 mg/dL LAB CHEMISTRY METHOD 09/18/2025 12:44 PM [facility] Creatinine 0.86 0.50 - 1.10 mg/dL LAB CHEMISTRY METHOD 09/18/2025 12:[address] [facility] eGFR 72 >=60 mL/min/1. 73m2 LAB CHEMISTRY METHOD 09/18/2025 12:[address] [facility] Comment:Calculation based on the Chronic Kidney Disease Epidemiology Collaboration (CKD-EPI) equation refit without adjustment for race. BUN/Creatinine Ratio 17.4 LAB CHEMISTRY METHOD 09/18/2025 12:[address] [facility] Calcium 9.9 8.5 - 10.5 mg/dL LAB CHEMISTRY METHOD 09/18/2025 12:[address] [facility] Blood Venous blood specimen / Unknown Venipuncture / Unknown 09/18/2025 5:01 AM EDT 09/18/2025 10:13 AM EDT Janice Núñez MD LAB BLOOD ORDERABLES Final Resul t [facility] [address] [place] [address], [place] [phone] * ECG-Annotated (09/07/2025) Only the most recent of2 resultswithin the time period is included. us Provider Onbase ECG ORDERABLES Final Result * (ABNORMAL) Lipid panel with reflex to direct LDL (09/06/2025 6:02 AM EDT) Cholesterol 239(H) 0 - 200 mg/dL LAB CHEMISTRY METHOD 09/06/2025 1:[address] [facility] Triglycerides 99 0 - 150 mg/dL LAB CHEMISTRY METHOD 09/06/2025 1:[address] [facility] HDL 98 >=40 mg/dL LAB CHEMISTRY METHOD 09/06/2025 1:[address] [facility] LDL Calculated 121(H) 0 - 100 mg/dL LAB CHEMISTRY METHOD 09/06/2025 1:[address] [facility] Comment:Estimated LDL Calcul ated using equation: Total cholesterol - HDL cholesterol - (Triglycerides/5) VLDL Cholesterol Artur 19.8 mg/dL LAB CHEMISTRY METHOD 09/06/2025 1:[address] [facility] Non HDL Chol. (LDL+VLDL) 141 <145 mg/dL LAB CHEMISTRY METHOD 09/06/2025 1:[address] [facility] Chol/HDL Ratio 2.4 0.0 - 4.4 LAB CHEMISTRY METHOD 09/06/2025 1:[address] [facility] Blood Blood sample taken from central line / Unknown Venipuncture / Unknown 09/06/2025 6:02 AM EDT 09/06/2025 6:18 AM EDT us Sathish Erwin MD LAB BLOOD ORDERABLES Final Re sult [facility] [address] [place] [address], [place] [phone] * (ABNORMAL) CBC auto differential (09/06/2025 6:02 AM EDT) Only the most recent of5 resultswithin the time period is included. WBC 3.5(L) 4.8 - 10.8 K/mcL LAB HEMETOLOGY METHOD 09/06/2025 6:[address] [facility] RBC 3.80 3.80 - 4.80 M/mcL LAB HEMETOLOGY [facility] Hemoglobin 10.6(L) 11.5 - 16.0 g/dL LAB HEMETOLOGY METHOD 09/06/2025 6:37 AM [facility] Hematocrit 35.9 35.0 - 47.0 % LAB HEMETOLOGY METHOD 09/06/2025 6:[address] [facility] MCV 94.2 79.0 - 98.0 FL LAB HEMETOLOGY METHOD 09/06/2025 6:[address] [facility] MCH 27.8 27.0 - 32.0 pcg LAB HEMETOLOGY METHOD 09/06/2025 6:37 AM [facility] MCHC 29.5(L) 32.0 - 37.0 g/dL LAB HEMETOLOGY METHOD 09/06/2025 6:37 AM [facility] RDW 15.9(H) 11.0 - 15.0 % LAB HEMETOLOGY METHOD 09/06/2025 6:37 AM [facility] Platelets 332 130 - 400 K/mcL LAB HEMETOLOGY METHOD 09/06/2025 6:37 AM [facility] MPV 9.2 7.0 - 11.0 FL LAB HEMETOLOGY METHOD 09/06/2025 6:37 AM [facility] NRBC 0.0 <1.0 % LAB HEMETOLOGY METHOD 09/06/2025 6:37 AM [facility] NRBC Absolute 0.00 <0.10 K/mcL LAB HEMETOLOGY METHOD 09/06/2025 6:37 AM [facility] Neutrophils Relative 64.7 % LAB HEMETOLOGY METHOD 09/06/2025 6:37 AM [facility] Lymphocytes Relative 17.1 % LAB HEMETOLOGY METHOD 09/06/2025 6:37 AM [facility] Monocytes Relative 14.2 % LAB HEMETOLOGY METHOD 09/06/2025 6:37 AM [facility] Eosinophils Relative 1.4 % LAB HEMETOLOGY METHOD 09/06/2025 6:37 AM [facility] Basophils Relative 1.2 % LAB HEMETOLOGY METHOD 09/06/2025 6:[address] [facility] Immature Granulocytes Relative 1.4 % LAB HEMETOLOGY METHOD 09/06/2025 6:[address] [facility] Neutrophils Absolute 2.23 1.50 - 7.00 K/mcL LAB HEMETOLOGY METHOD 09/06/2025 6:[address] [facility] Lymphocytes Absolute 0.59(L) 1.00 - 5.00 K/mcL LAB HEMETOLOGY METHOD 09/06/2025 6:[address] [facility] Monocytes Absolute 0.49 0.20 - 1.00 K/mcL LAB HEMETOLOGY METHOD 09/06/2025 6:[address] [facility] Eosinophils Absolute 0.05 0.00 - 0.50 K/mcL LAB HEMETOLOGY METHOD 09/06/2025 6:[address] [facility] Basophils Absolute 0.04 0.00 - 0.20 K/mcL LAB HEMETOLOGY METHOD 09/06/2025 6:[address] [facility] Immature Granulocytes Absolute 0.05(H) 0.00 - 0.03 K/mcL LAB HEMETOLOGY METHOD 09/06/2025 6:[address] [facility] Blood Blood sample taken from central line / Unknown Venipuncture / Unknown 09/06/2025 6:02 AM EDT 09/06/2025 6:18 AM EDT us Ayaan Fregoso MD LAB BLOOD ORDERABLES Final Re sult [facility]) [facility] [address] [place] [address], * Lamotrigine level (09/06/2025 6:02 AM EDT) Lamotrigine (Lamictal) Level <0.2 2.0 - 15.0 ug/mL 09/09/2025 11:10 AM EDT [facility] Comment: Lamotrigine toxic level: >20 ug/mL The reference range is not well established. It may be as wide as 1 - 20 ug/mL. If applicable, any drug confirmation testing reported here was developed and the performance characteristics determined by [facility]. This confirmation testing has not been cleared or approved by the FDA. The laboratory is regulated under CLIA as qualified to perform high-complexity testing. This test is used for patient testing purposes. It should not be regarded as investigational or for research. Test performed at [facility], [address] , [place] [address] Emani Noble MD, PhD - [employer] Yard Work[employer] Blood Blood sample taken from central line / Unknown Venipuncture / Unknown 09/06/2025 6:02 AM EDT 09/06/2025 6:17 AM EDT Emani Jackson NP LAB BLOOD ORDERABLES Fin al Result Performing Organization Address City/[facility]/ZIP Co de Phone Number [facility] [address] [place] [address] * Magnesium (09/06/2025 6:02 AM EDT) Only the most recent of5 resultswithin the time period is included. Magnesium 1.9 1.9 - 2.6 mg/dL LAB CHEMISTRY METHOD 09/06/2025 7:[address] [facility] Blood Blood sample taken from central line / Unknown Venipuncture / Unknown 09/06/2025 6:02 AM EDT 09/06/2025 6:18 AM EDT us Ayaan Fregoso MD LAB BLOOD ORDERABLES Final Re sult [facility] [address] [place] [address], * (ABNORMAL) Ammonia (09/06/2025 6:02 AM EDT) Ammonia 55(H) 11 - 35 mcmol/L LAB CHEMISTRY METHOD 09/06/2025 6:[address] [facility] Blood Blood sample taken from central line / Unknown Venipuncture / Unknown 09/06/2025 6:02 AM EDT 09/06/2025 6:18 AM EDT us Emani Jackson COCKTAIL SERVER LAB BLOOD ORDERABLES Fin al Result [facility] [address] [place] [address], [place] [phone] * MR Brain wo and w Contrast (09/05/2025 6:21 PM EDT) Anatomical Region Laterality Modality Head and Neck Magnetic Resonan ce 09/05/2025 7:17 PM EDT Impressions 09/05/2025 7:17 PM EDT No acute findings. This document has been electronically signed by: Gonzalo Dorantes MD on 09/05/2025 19:17:56 Narrative 09/05/2025 7:17 PM EDT INDICATION: Confusion, acute, unexplained MR Brain with and without gadolinium Comparison: MR/FL/SR - MR BRAIN WO AND W CONTRAST - 04/25/25 15:39 EDT Findings: No restricted diffusion. No intra-axial mass or hemorrhage. No midline shift. No hydrocephalus. Vascular flow voids are intact. Orbital contents are unremarkable. The sinuses and mastoid air cells are clear. No focal bone lesion. Procedure Note Gonzalo Dorantes MD - 09/05/2025 INDICATION: Confusion, acute, unexplained MR Brain with and without gadolinium Comparison: MR/FL/SR - MR BRAIN WO AND W CONTRAST - 04/25/25 15:39 EDT Findings: No restricted diffusion. No intra-axial mass or hemorrhage. No midline shift. No hydrocephalus. Vascular flow voids are intact. Orbital contents are unremarkable. The sinuses and mastoid air cells are clear. No focal bone lesion. IMPRESSION: No acute findings. This document has been electronically signed by: Gonzalo Dorantes MD on 09/05/2025 19:17:56 Emani Lacey Gregorypatricia Renetta COCKTAIL SERVER IM MRI PROCEDURES Final Result * Respiratory virus panel molecular study (09/05/2025 2:10 PM EDT) Only the most recent of2 resultswithin the time period is included. Adenovirus Detection by PCR Not Detected Not Detected LAB MICROBIOLOGY METHOD 09/05/2025 3:[address] [facility] Influenza A PCR Not Detected Not Detected LAB MICROBIOLOGY METHOD 09/05/2025 3:[address] [facility] Influenza B PCR Not Detected Not Detected LAB MICROBIOLOGY METHOD 09/05/2025 3:[address] [facility] Coronavirus 229E Not Detected Not Detected LAB MICROBIOLOGY METHOD 09/05/2025 3:[address] [facility] Coronavirus HKU1 Not Detected Not Detected LAB MICROBIOLOGY METHOD 09/05/2025 3:[address] [facility] Coronavirus OC43 Not Detected Not Detected LAB MICROBIOLOGY METHOD 09/05/2025 3:[address] [facility] Coronavirus NL63 Not Detected Not Detected LAB MICROBIOLOGY METHOD 09/05/2025 3:[address] [facility] Parainfluenza Virus 1 Not Detected Not Detected LAB MICROBIOLOGY METHOD 09/05/2025 3:[address] [facility] Parainfluenza Virus 2 Not Detected Not Detected LAB MICROBIOLOGY METHOD 09/05/2025 3:[address] [facility] Parainfluenza Virus 3 Not Detected Not Detected LAB MICROBIOLOGY METHOD 09/05/2025 3:[address] [facility] Parainfluenza Virus 4 Not Detected Not Detected LAB MICROBIOLOGY METHOD 09/05/2025 3:[address] [facility] RSV PCR Not Detected Not Detected LAB MICROBIOLOGY METHOD 09/05/2025 3:[address] [facility] Human Metapneumovirus A and B Not Detected Not Detected LAB MICROBIOLOGY METHOD 09/05/2025 3:[address] [facility] Rhinovirus/Entero virus Not Detected Not Detected LAB MICROBIOLOGY METHOD 09/05/2025 3:[address] [facility] Bordetella pertussis Not Detected Not Detected LAB MICROBIOLOGY METHOD 09/05/2025 3:[address] [facility] Bordetella parapertussis Not Detected Not Detected LAB MICROBIOLOGY METHOD 09/05/2025 3:[address] [facility] Mycoplasma pneumo by PCR Not Detected Not Detected LAB MICROBIOLOGY METHOD 09/05/2025 3:[address] [facility] Chlamydia pneumoniae Not Detected Not Detected LAB MICROBIOLOGY METHOD 09/05/2025 3:[address] [facility] SARS COV-2 Not Detected Not Detected LAB MICROBIOLOGY METHOD 09/05/2025 3:[address] [facility] Swab Both anterior nares / Unknown Non-blood Collection / Unknown 09/05/2025 2:10 PM EDT 09/05/2025 2:18 PM EDT [facility] - 09/05/2025 3:59 PM EDT Testing was performed using the [employer] Respiratory Pathogen PCR Assay. All results must [...] are below the limit of detection. us Emani Jackson NP LAB MICROBIOLOGY - GENER AL ORDERABLES Final Result [facility] [address] [place] [address], * (ABNORMAL) POCT Glucose, blood (09/05/2025 12:33 PM EDT) Glucose POCT 122(H) 70 - 100 mg/dL 09/05/2025 12:[address] [facility] Blood Capillary blood specimen / Unknown 09/05/2025 12:33 PM EDT 09/05/2025 12:35 PM EDT us Ayaan Fregoso MD LAB POINT OF CARE TE ST DOCKED DEVICE UNSOLICITED RESULTS Final Result [facility] [address] [place] [address], * (ABNORMAL) Venous blood gas (09/05/2025 12:33 PM EDT) Only the most recent of2 resultswithin the time period is included. pH, Feliz 7.35 7.32 - 7.42 pH 09/05/2025 12:[address] [facility] pCO2, Feliz 93(HH) 41 - 51 mmHg 09/05/2025 12:[address] [facility] pO2, Feliz 43(H) 25 - 40 mmHg 09/05/2025 12:[address] [facility] HCO3, Venous 40.5(H) 22.0 - 26.0 mmol/L 09/05/2025 12:[address] [facility] O2 Sat, Feliz 74.3 % 09/05/2025 12:[address] [facility] Base Excess, Feliz 20.8(H) -2.0 - 2.0 mmol/L 09/05/2025 12:[address] [facility] Blood Venous blood specimen / Unknown Venipuncture / Unknown 09/05/2025 12:33 PM EDT 09/05/2025 12:38 PM EDT us Ayaan Fregoso MD LAB BLOOD ORDERABLES Final Re sult [facility] [address] [place] [address], [place] [phone] * XR Chest 1 View (09/05/2025 12:28 PM EDT) Anatomical Region Laterality Modality Body Radiographic Heydi ging 09/05/2025 1:11 PM EDT Impressions 09/05/2025 1:13 PM EDT FINDINGS/IMPRESSION: Patchy coarse interstitial opacities nonspecific but could represent atypical infectious inflammatory process with presumed atelectasis versus infiltrate left lung base. Trace effusions. Degenerative changes of the shoulders and spine. Right chest wall port. Remote rib deformities. -------- FINAL REPORT -------- Dictated By: Blanca Pruett Dictated Date: 09/05/2025 13:11 ET Assigned Physician: Blanca Pruett Reviewed and Electronically Signed By: Blanca Pruett Signed Date: 09/05/2025 13:13 ET Workstation ID: [id number] Transcribed By: Self Edit Transcribed Date: 09/05/2025 13:11 ET Narrative 09/05/2025 1:13 PM EDT XR CHEST 1 VIEW INDICATION: general weakness TECHNIQUE: XR CHEST 1 VIEW COMPARISON: None Procedure Note Blanca Pruett MD - 09/05/2025 XR CHEST 1 VIEW INDICATION: general weakness TECHNIQUE: XR CHEST 1 VIEW COMPARISON: None IMPRESSION: FINDINGS/IMPRESSION: Patchy coarse interstitial opacities nonspecific butcould represent atypical infectious inflammatory process with presumedatelectasis versus infiltrate left lung base. Trace effusions.Degenerative changes of the shoulders and spine. Right chest wall port.Remote rib deformities. -------- FINAL REPORT -------- Dictated By: Blanca Pruett Dictated Date: 09/05/2025 13:11 ET Assigned Physician: Blanca Pruett Reviewed and Electronically Signed By: Blanca Pruett Signed Date: 09/05/2025 13:13 ET Workstation ID: [id number] Transcribed By: Self Edit Transcribed Date: 09/05/2025 13:11 ET Glenroy Paez MD IMG XR PROCEDURES Final Result * RHYTHM ECG, REPORT (09/05/2025 11:23 AM EDT) Glenroy Marcus MD - 09/05/2025 11:23 AM EDT Glenroy Paez MD 09/05/2025 2:00 PM ECG Rhythm Interpretation and Report Date/Time: 09/05/2025 11:23 AM Performed by: Glenroy Paez MD Authorized by: Glenroy Paez MD ECG interpreted by ED Physician in the absence of a dental surgeon: yes Interpretation: Interpretation: normal Details: Sinus tachycardia with a ventricular rate of 101 bpm. Normal FL, QRS, QTc, axis. No acute ischemic changes Glenroy Paez MD ECG ORDERABLES Final Result * Troponin I high sensitivity (NOW and then in 1 hour) (09/05/2025 11:20 AM EDT) Only the most recent of3 resultswithin the time period is included. [facility] High Sensitivity Troponin I 10 <=54 ng/L LAB CHEMISTRY METHOD 09/05/2025 12:[address] [facility] Blood Venous blood specimen / Unknown Venipuncture / Unknown 09/05/2025 11:20 AM EDT 09/05/2025 11:38 AM EDT [facility] - 09/05/2025 12:11 PM EDT High levels of biotin in samples may falsely decrease hsTroponin values. Use caution when interpreting hsTroponin results in patients taking biotin who exhibit renal impairment (eGFR <60) or in patients taking more than 20 mg/day of biotin. Glenroy Paez MD LAB BLOOD ORDERABLES Final Res ult [facility] [address] [place] [address], [place] [phone] * Activated partial thromboplastin time (09/05/2025 11:20 AM EDT) [facility] aPTT 37.4 24.1 - 39.3 sec LAB COAGULATION METHOD 09/05/2025 11:[address] [facility] Blood Venous blood specimen / Unknown Venipuncture / Unknown 09/05/2025 11:20 AM EDT 09/05/2025 11:38 AM EDT Glenroy Paez MD LAB BLOOD ORDERABLES Final Res ult Performing Organization Address City/[facility]/ZIP Co de Phone Number [facility] [address] [place] [address], [place] [phone] * (ABNORMAL) Prothrombin time with INR (09/05/2025 11:20 AM EDT) [facility] Protime 14.3(H) 10.6 - 13.9 sec LAB COAGULATION METHOD 09/05/2025 11:[address] [facility] INR 1.1 LAB COAGULATION METHOD 09/05/2025 11:[address] [facility] Blood Venous blood specimen / Unknown Venipuncture / Unknown 09/05/2025 11:20 AM EDT 09/05/2025 11:38 AM EDT Glenroy Paez MD LAB BLOOD ORDERABLES Final Res ult Performing Organization Address City/[facility]/ZIP Co de Phone Number [facility] [address] [place] [address], [place] [phone] * C-reactive protein (09/05/2025 11:20 AM EDT) Only the most recent of2 resultswithin the time period is included. [facility] C-Reactive Protein 0.42 <=0.50 mg/dL LAB CHEMISTRY METHOD 09/05/2025 2:[address] [facility] Blood Venous blood specimen / Unknown Venipuncture / Unknown 09/05/2025 11:20 AM EDT 09/05/2025 11:38 AM EDT us Ayaan Fregoso MD LAB BLOOD ORDERABLES Final Re sult [facility] [address] [place] [address], [place] [phone] * Hepatic function panel (09/05/2025 11:20 AM EDT) Total Protein 6.7 6.0 - 8.0 g/dL LAB CHEMISTRY METHOD 09/05/2025 2:[address] [facility] Albumin 3.6 3.2 - 5.0 g/dL LAB CHEMISTRY METHOD 09/05/2025 2:[address] [facility] Total Bilirubin 0.3 0.0 - 1.4 mg/dL LAB CHEMISTRY METHOD 09/05/2025 2:[address] [facility] Bilirubin, Direct 0.1 0.0 - 0.3 mg/dL LAB CHEMISTRY METHOD 09/05/2025 2:[address] [facility] Bilirubin, Indirect 0.2 0.0 - 1.1 mg/dL LAB CHEMISTRY METHOD 09/05/2025 2:[address] [facility] ALT (SGPT) 22 10 - 60 unit/L LAB CHEMISTRY METHOD 09/05/2025 2:[address] [facility] AST (SGOT) 20 10 - 42 unit/L LAB CHEMISTRY METHOD 09/05/2025 2:[address] [facility] Alkaline Phosphatase 74 42 - 121 unit/L LAB CHEMISTRY METHOD 09/05/2025 2:[address] [facility] Blood Venous blood specimen / Unknown Venipuncture / Unknown 09/05/2025 11:20 AM EDT 09/05/2025 11:38 AM EDT us Ayaan Fregoso MD LAB BLOOD ORDERABLES Final Re sult Performing Organization Address [facility] Co de Phone Number [facility] [address] [place] [address], * ECG 12 lead (09/05/2025 11:11 AM EDT) Only the most recent of2 resultswithin the time period is included. Ventricular Rate ECG 101 BPM GEMUSE Atrial Rate 101 BPM GEMUSE P-R Interval 180 ms GEMUSE QRS Duration 86 ms GEMUSE Q-T Interval 318 ms GEMUSE QTc 412 ms GEMUSE P Wave Cameron 91 degrees GEMUSE R Cameron 70 degrees GEMUSE T Cameron 31 degrees GEMUSE ECG Interpretation Sinus tachycardia Nonspecific ST abnormality Abnormal ECG When compared with ECG of 05-JUL-2025 21:40, heart rate has increased by [address] abnormality is present Confirmed by Reggie KHAN, VALENCIA ([id number]) on 09/05/2025 1:31:24 PM GEMUSE 09/05/2025 11:1 1 AM EDT 09/05/2025 1:31 PM EDT us Glenroy Paez MD ECG ORDERABLES Final Result Performing Organization Address [facility] Co de Phone Number G[facility] * CT Head Stroke wo Contrast (09/05/2025 11:03 AM EDT) Anatomical Region Laterality Modality Head and Neck Computed Tomogra phy 09/05/2025 10:4 6 AM EDT Impressions 09/05/2025 10:52 AM EDT No evidence of acute intracranial process on noncontrast head CT. Atrophy and age-related changes. A secure text message sent to the ordering physician. Please note that the provider is not registered for critical results. -------- FINAL REPORT -------- Dictated By: Jesica Henderson Dictated Date: 09/05/2025 10:46 ET Assigned Physician: Jesica Henderson Reviewed and Electronically Signed By: Jesica Henderson Signed Date: 09/05/2025 10:52 ET Workstation ID: [id number] Transcribed By: Self Edit Transcribed Date: 09/05/2025 10:46 ET Narrative 09/05/2025 10:52 AM EDT INDICATION: Generalized weakness, slurred speech, dizziness, headache Technique: Axial images were obtained from the skull base to the vertex without contrast enhancement. Coronal and sagittal reformats obtained. Scanner: StyleFeeder LightSpeed 64 slice VCT Dose reduction technique: ASIR (Adaptive statistical iterative reconstruction) Dose: total exam DLP 716 mGY per cm Comparison: Compared to multiple prior studies most recent outside study from November 24, 2023 FINDINGS: Intracranial contents: No acute intracranial hemorrhage, midline shift or mass-effect. The ventricles, sulci, sylvian fissures and basilar cisterns are normal in size and shape for the patient's age. There are no abnormal intra or extra-axial fluid collections. Bony structures/soft tissues: Within normal limits for the patient's age. Sinuses: paranasal sinuses are clear. Right left nasal septal deviation. Procedure Note Jesica Henderson MD - 09/05/2025 INDICATION: Generalized weakness, slurred speech, dizziness, headache Technique: Axial images were obtained from the skull base to the vertexwithout contrast enhancement. Coronal and sagittal reformats obtained. Scanner: StyleFeeder LightSpeed 64 slice VCT Dose reduction technique: ASIR (Adaptive statistical iterativereconstruction) Dose: total exam DLP 716 mGY per cm Comparison: Compared to multiple prior studies most recent outside studyfrom November 24, 2023 FINDINGS: Intracranial contents: No acute intracranial hemorrhage, midline shift ormass- effect. The ventricles, sulci, sylvian fissures and basilar cisternsare normal in size and shape for the patient's age. There are no abnormalintra or extra-axial fluid collections. Bony structures/soft tissues: Within normal limits for the patient'bouchra. Sinuses: paranasal sinuses are clear. Right left nasal septal deviation. IMPRESSION: No evidence of acute intracranial process on noncontrast head CT. Atrophy and age-related changes. A secure text message sent to the ordering physician. Please note that theprovider is not registered for critical results. -------- FINAL REPORT -------- Dictated By: Jesica Henderson Dictated Date: 09/05/2025 10:46 ET Assigned Physician: Jesica Henderson Reviewed and Electronically Signed By: Jesica Henderson Signed Date: 09/05/2025 10:52 ET Workstation ID: [id number] Transcribed By: Self Edit Transcribed Date: 09/05/2025 10:46 ET Glenroy Paez MD IMG CT PROCEDURES Final Result * CT Angio Head/Neck Stroke wo and/or w Contrast (09/05/2025 11:03 AM EDT) Anatomical Region Laterality Modality Head and Neck Computed Tomogra phy 09/05/2025 11:4 6 AM EDT Impressions 09/05/2025 11:59 AM EDT Normal CTA of the brain and neck. No evidence of aneurysm, thrombosis or occlusion. -------- FINAL REPORT -------- Dictated By: Jesica Henderson Dictated Date: 09/05/2025 11:46 ET Assigned Physician: Jesica Henderson Reviewed and Electronically Signed By: Jesica Henderson Signed Date: 09/05/2025 11:59 ET Workstation ID: [id number] Transcribed By: Self Edit Transcribed Date: 09/05/2025 11:46 ET Narrative 09/05/2025 11:59 AM EDT INDICATION: Slurred speech, dizziness, headache, stroke protocol, generalized weakness TECHNIQUE: CTA of the brain and neck performed with a total of 90 cc Isovue-370 administered intravenously without incident. Arterial phase imaging of the brain and neck and delayed phase imaging of the brain obtained. Axial, coronal and sagittal imaging reviewed including MIPS. 3D multiplanar reconstructions performed on a computer workstation. Scanner: VetCompare 64slice VCT Dose reduction technique: ASIR (Adaptive statistical iterative reconstruction) and/or AEC (automated exposure control) Dose: total exam DLP 2741.57 mGY per cm COMPARISON: No prior studies are available for comparison. FINDINGS: Arterial phase: Aortic arch: Mild atherosclerotic changes. Mild motion artifact. Widely patent brachycephalic artery, left common carotid artery and left subclavian artery. Right carotid: Motion artifact along the proximal and mid right common carotid artery. Mild atherosclerotic changes. Widely patent carotid bifurcation with mild calcified plaque along proximal right ICA. Retropharyngeal course of the proximal right ICA. No stenosis. Left carotid: Motion artifact noted along the mid left cervical common carotid artery. Widely patent carotid bifurcation with minimal plaque along the proximal left ICA which is tortuous. Subclavian/vertebral: Motion artifact limits evaluation of the proximal tibial arteries bilaterally which are otherwise similar in caliber. Remainder of the vessels are widely patent with mild tortuosity. Patent bilateral subclavian arteries with mild motion artifact proximally. Intracranial vessels: A few arteries join to form the basilar artery which is normal in course and caliber and terminates into the P1 segments bilaterally. Patent left posterior communicating artery joins left P1 segment to form the left posterior cerebral artery. No definite posterior communicating artery noted on the right side. Patent bilateral posterior cerebral arteries. Widely patent intracranial internal carotid arteries with minimal calcified plaque on the left side. Patent bilateral anterior cerebral arteries as well as anterior communicating artery. Patent bilateral middle cerebral arteries. Delayed phase: Widely patent dural sinuses. CT neck: No cervical lymphadenopathy. Parotid, submandibular and thyroid glands are within normal limits. No parapharyngeal or retropharyngeal soft tissue swelling. Bony structures: Within normal limits for the patient's age. Procedure Note Jesica Henderson MD - 09/05/2025 INDICATION: Slurred speech, dizziness, headache, stroke protocol,generalized weakness TECHNIQUE: CTA of the brain and neck performed with a total of 90 ccIsovue-370 administered intravenously without incident. Arterial phaseimaging of the brain and neck and delayed phase imaging of the brainobtained. Axial, coronal and sagittal imaging reviewed including MIPS. 3Dmultiplanar reconstructions performed on a computer workstation. Scanner: VetCompare 64slice VCT Dose reduction technique: ASIR (Adaptive statistical iterativereconstruction) and/or AEC (automated exposure control) Dose: total exam DLP 2741.57 mGY per cm COMPARISON: No prior studies are available for comparison. FINDINGS: Arterial phase: Aortic arch: Mild atherosclerotic changes. Mild motion artifact. Widelypatent brachycephalic artery, left common carotid artery and leftsubclavian artery. Right carotid: Motion artifact along the proximal and mid right commoncarotid artery. Mild atherosclerotic changes. Widely patent carotidbifurcation with mild calcified plaque along proximal right ICA.Retropharyngeal course of the proximal right ICA. No stenosis. Left carotid: Motion artifact noted along the mid left cervical commoncarotid artery. Widely patent carotid bifurcation with minimal plaquealong the proximal left ICA which is tortuous. Subclavian/vertebral: Motion artifact limits evaluation of the proximaltibial arteries bilaterally which are otherwise similar in caliber.Remainder of the vessels are widely patent with mild tortuosity. Patentbilateral subclavian arteries with mild motion artifact proximally. Intracranial vessels: A few arteries join to form the basilar artery whichis normal in course and caliber and terminates into the P1 segmentsbilaterally. Patent left posterior communicating artery joins left [id number] to form the left posterior cerebral artery. No definite posteriorcommunicating artery noted on the right side. Patent bilateral posteriorcerebral arteries. Widely patent intracranial internal carotid arteries with minimalcalcified plaque on the left side. Patent bilateral anterior cerebralarteries as well as anterior communicating artery. Patent bilateral middlecerebral arteries. Delayed phase: Widely patent dural sinuses. CT neck: No cervical lymphadenopathy. Parotid, submandibular and thyroidglands are within normal limits. No parapharyngeal or retropharyngeal softtissue swelling. Bony structures: Within normal limits for the patient's age. IMPRESSION: Normal CTA of the brain and neck. No evidence of aneurysm, thrombosis orocclusion. -------- FINAL REPORT -------- Dictated By: Jesica Henderson Dictated Date: 09/05/2025 11:46 ET Assigned Physician: Jesica Henderson Reviewed and Electronically Signed By: Jesica Henderson Signed Date: 09/05/2025 11:59 ET Workstation ID: [id number] Transcribed By: Self Edit Transcribed Date: 09/05/2025 11:46 ET Glenroy Paez MD IM CT PROCEDURES Final Result * (ABNORMAL) Urinalysis with reflex microscopic (08/31/2025 4:00 PM EDT) [facility] Specific [place] Urine 1.008 1.003 - 1.030 LAB URINALYSIS - AUTOMATED METHOD 09/01/2025 10:46 AM [facility] pH, Urine 6.5 5.0 - 8.0 pH LAB URINALYSIS - AUTOMATED METHOD 09/01/2025 10:46 AM [facility] Leukocytes, Urine Trace(A) Negative LAB URINALYSIS - AUTOMATED METHOD 09/01/2025 10:46 AM [facility] Nitrite, Urine Negative Negative LAB URINALYSIS - AUTOMATED METHOD 09/01/2025 10:46 AM [facility] Protein, Urine Negative <=Trace mg/dL LAB URINALYSIS - AUTOMATED METHOD 09/01/2025 10:46 AM [facility] Glucose, Urine Negative Negative mg/dL LAB URINALYSIS - AUTOMATED METHOD 09/01/2025 10:46 AM [facility] Ketones, Urine Negative Negative mg/dL LAB URINALYSIS - AUTOMATED METHOD 09/01/2025 10:46 AM [facility] Urobilinogen, Urine 0.2 0.2 - 1.0 mg/dL LAB URINALYSIS - AUTOMATED METHOD 09/01/2025 10:46 AM [facility] Bilirubin, Urine Negative Negative LAB URINALYSIS - AUTOMATED METHOD 09/01/2025 10:46 AM [facility] Blood, Urine Small(A) Negative LAB URINALYSIS - AUTOMATED METHOD 09/01/2025 10:46 AM [facility] RBC, Urine 1.0 0 - 4 /HPF LAB URINALYSIS - AUTOMATED METHOD 09/01/2025 10:46 AM [facility] WBC, Urine 7.0(H) 0 - 4 /HPF LAB URINALYSIS - AUTOMATED METHOD 09/01/2025 10:46 AM [facility] Squamous Epithelial, Urine 10 0 - 60 /LPF LAB URINALYSIS - AUTOMATED METHOD 09/01/2025 10:46 AM [facility] Bacteria, Urine Negative Negative /HPF LAB URINALYSIS - AUTOMATED METHOD 09/01/2025 10:[address] [facility] Hyaline Casts, Urine 0.4 0 - 3 /LPF LAB URINALYSIS - AUTOMATED METHOD 09/01/2025 10:[address] [facility] Urine Urine specimen obtained by clean catch procedure / Unknown Non-blood Collection / Unknown 08/31/2025 4:00 PM EDT 09/01/2025 10:18 AM EDT us Janice Núñez MD LAB URINE ORDERABLES Final Resul t Performing Organization Address City/[facility]/ZIP Co de Phone Number [facility] [address] [place] [address], [place] [phone] * Culture urine (08/31/2025 4:00 PM EDT) Culture, Urine <10,000 CFU/mL gram positive cocci, insignificant count, no further workup 09/02/2025 11:[address] [facility] Urine Urine specimen obtained by clean catch procedure / Unknown Non-blood Collection / Unknown 08/31/2025 4:00 PM EDT 09/01/2025 10:18 AM EDT us Janice Núñez MD LAB MICROBIOLOGY - GENERAL ORDER KANE Final Result [facility] [address] [place] [address], [place] [phone] * Vitamin D 25 hydroxy (08/20/2025 4:50 AM EDT) Vit D, 25-Hydroxy 37.7 30.0 - 80.0 ng/mL LAB CHEMISTRY METHOD 08/20/2025 12:[address] [facility] Blood Venous blood specimen / Unknown Venipuncture / Unknown 08/20/2025 4:50 AM EDT 08/20/2025 9:32 AM EDT us Janice Núñez MD LAB BLOOD ORDERABLES Final Resul t Performing Organization Address City/[facility]/ZIP Co de Phone Number [facility] [address] [place] [address], [place] [phone] * Thyroid stimulating hormone (08/20/2025 4:50 AM EDT) [facility] TSH 2.01 0.40 - 4.00 mcIU/mL LAB CHEMISTRY METHOD 08/20/2025 12:[address] [facility] Blood Venous blood specimen / Unknown Venipuncture / Unknown 08/20/2025 4:50 AM EDT 08/20/2025 9:32 AM EDT us Janice Núñez MD LAB BLOOD ORDERABLES Final Resul t Performing Organization Address [facility] Co de Phone Number [facility] [address] [place] [address], [place] [phone] * Hemoglobin A1c (08/20/2025 4:50 AM EDT) [facility] Hemoglobin A1C 5.8 <6.5 % LAB CHEMISTRY METHOD 08/20/2025 12:[address] [facility] Mean Bld Glu Estim. 120 mg/dL LAB CHEMISTRY METHOD 08/20/2025 12:[address] [facility] Blood Venous blood specimen / Unknown Venipuncture / Unknown 08/20/2025 4:50 AM EDT 08/20/2025 9:32 AM EDT us Janice Núñez MD LAB BLOOD ORDERABLES Final Resul t Performing Organization Address City/[facility]/ZIP Co de Phone Number [facility] [address] [place] [address], [place] [phone] * (ABNORMAL) Folate (08/20/2025 4:50 AM EDT) [facility] Folate 19.1(H) 2.8 - 17.0 ng/ml LAB CHEMISTRY METHOD 08/20/2025 11:[address] [facility] Blood Venous blood specimen / Unknown Venipuncture / Unknown 08/20/2025 4:50 AM EDT 08/20/2025 9:32 AM EDT us Janice Núñez MD LAB BLOOD ORDERABLES Final Resul t [facility] [address] [place] [address], [place] [phone] * Vitamin B12 (08/20/2025 4:50 AM EDT) [facility] Vitamin B-12 592 250 - 900 pcg/mL LAB CHEMISTRY METHOD 08/20/2025 11:[address] [facility] Blood Venous blood specimen / Unknown Venipuncture / Unknown 08/20/2025 4:50 AM EDT 08/20/2025 9:32 AM EDT us Janice Núñez MD LAB BLOOD ORDERABLES Final Resul t Performing Organization Address [facility]/ZIP Co de Phone Number [facility] [address] [place] [address], [place] [phone] * (ABNORMAL) Comprehensive metabolic panel (08/20/2025 4:50 AM EDT) Only the most recent of3 resultswithin the time period is included. [facility] Sodium 140 133 - 145 mmol/L LAB CHEMISTRY METHOD 08/20/2025 11:[address] [facility] Potassium 3.3(L) 3.5 - 5.5 mmol/L LAB CHEMISTRY METHOD 08/20/2025 11:[address] [facility] Chloride 102 96 - 110 mmol/L LAB CHEMISTRY METHOD 08/20/2025 11:04 AM [facility] CO2 31 21 - 32 mmol/L LAB CHEMISTRY METHOD 08/20/2025 11:04 AM [facility] Anion Gap 7 3 - 11 LAB CHEMISTRY METHOD 08/20/2025 11:04 AM [facility] Glucose 81 70 - 100 mg/dL LAB CHEMISTRY METHOD 08/20/2025 11:04 AM [facility] BUN 19 5 - 25 mg/dL LAB CHEMISTRY METHOD 08/20/2025 11:04 AM [facility] Creatinine 0.78 0.50 - 1.10 mg/dL LAB CHEMISTRY METHOD 08/20/2025 11:04 AM [facility] eGFR 81 >=60 mL/min/1. 73m2 LAB CHEMISTRY METHOD 08/20/2025 11:04 AM [facility] Comment:Calculation based on the Chronic Kidney Disease Epidemiology Collaboration (CKD-EPI) equation refit without adjustment for race. BUN/Creatinine Ratio 24.4 LAB CHEMISTRY METHOD 08/20/2025 11:04 AM [facility] Calcium 8.4(L) 8.5 - 10.5 mg/dL LAB CHEMISTRY METHOD 08/20/2025 11:04 AM [facility] AST (SGOT) 18 10 - 42 unit/L LAB CHEMISTRY METHOD 08/20/2025 11:04 AM [facility] ALT (SGPT) 29 10 - 60 unit/L LAB CHEMISTRY METHOD 08/20/2025 11:04 AM [facility] Alkaline Phosphatase 78 42 - 121 unit/L LAB CHEMISTRY METHOD 08/20/2025 11:04 AM [facility] Total Protein 5.9(L) 6.0 - 8.0 g/dL LAB CHEMISTRY METHOD 08/20/2025 11:04 AM [facility] Albumin 3.2 3.2 - 5.0 g/dL LAB CHEMISTRY METHOD 08/20/2025 11:[address] [facility] Total Bilirubin 0.1 0.0 - 1.4 mg/dL LAB CHEMISTRY METHOD 08/20/2025 11:[address] [facility] Blood Venous blood specimen / Unknown Venipuncture / Unknown 08/20/2025 4:50 AM EDT 08/20/2025 9:32 AM EDT us Janice Núñez MD LAB BLOOD ORDERABLES Final Resul t [facility] [address] [place] [address], * IR Insert Tunneled CVAD w Subq [...] Signed Date: 07/09/2025 15:22 ET Workstation ID: [id number] Transcribed By: Self Edit Transcribed Date: 07/09/2025 [...] and placed within the pocket. An 8 Yakut peel-away sheath with a hemostatic valve placed [...] Signed Date: 07/09/2025 15:22 ET Workstation ID: [id number] Transcribed By: Self Edit Transcribed Date: 07/09/2025 15:21 ET us Sallie TABARES IMDewey IR PROCEDURES Final Resul t * Lavender tube (07/07/2025 5:50 AM EDT) Extra Tube Hold for add-ons. 07/07/2025 8:[address] [facility] Comment:Auto resulted. Blood Venous blood specimen / Unknown Venipuncture / Unknown 07/07/2025 5:50 AM EDT 07/07/2025 6:28 AM EDT us Sathish Erwin MD LAB BLOOD ORDERABLES Final Re sult [facility] [address] [place] [address], * CT Angio Chest wo and/or w [...] Chest 2 Views (07/06/2025 12:50 AM EDT) Anatomical Region Laterality Modality Body Radiographic Heydi ging 07/06/2025 8:03 AM EDT Impressions 07/06/2025 8:08 AM EDT No significant change compared with 06/03/2025. -------- FINAL REPORT -------- Dictated By: Romeo Kent Dictated Date: 07/06/2025 08:03 ET Assigned Physician: Romeo Kent Reviewed and Electronically Signed By: Romeo Kent Signed Date: 07/06/2025 08:08 ET Workstation ID: [id number] Transcribed By: Self Edit Transcribed Date: 07/06/2025 [...] Signed Date: 07/06/2025 08:08 ET Workstation ID: [id number] Transcribed By: Self Edit Transcribed Date: 07/06/2025 08:03 ET us Emani Olivarez MD IMG XR PROCEDURES Final Result * B-type natriuretic peptide (07/05/2025 9:58 PM EDT) Pathologist [facility] BNP 86 <=100 pcg/mL LAB CHEMISTRY METHOD 07/05/2025 11:[address] [facility] Blood Venous blood specimen / Unknown Venipuncture / Unknown 07/05/2025 9:58 PM EDT 07/05/2025 10:23 PM EDT us Emani Olivarez MD LAB BLOOD ORDERABLES Final Resul t Performing Organization Address [facility] de Phone Number [facility] [address] [place] [address], [place] [phone] * Lipase (07/05/2025 9:58 PM EDT) [facility] Lipase 28 13 - 75 unit/L LAB CHEMISTRY METHOD 07/05/2025 11:[address] [facility] Blood Venous blood specimen / Unknown Venipuncture / Unknown 07/05/2025 9:58 PM EDT 07/05/2025 10:23 PM EDT us Emani Olivarez MD LAB BLOOD ORDERABLES Final Resul t Performing Organization Address City/[facility]/ZIP Co de Phone Number [facility] [address] [place] [address], [place] [phone] * Colonoscopy (04/27/2024) Colonoscopy No Interpretation , Abstracted Anatomical Region Laterality Modality Other Historical Provider HEALTH MAINTENANCE Final Result * Depression Screening (04/16/2024) Depression Screening Abstracted Historical Provider HEALTH MAINTENANCE Final Result * LUIS ARMANDO SCREENING DIGITAL (03/22/2024 8:50 AM EDT) Anatomical Region Laterality Modality Mammography 03/21/2024 3:07 PM EDT Narrative 03/22/2024 8:50 AM EDT [facility] Diagnostic Imaging Department [address] [place] [address] Patient: DENISA VERDUZCO D.O.B./Age/Sex: 1955 - 68 - F Unit#: [id number] [facility] Mnemonic[facility]Ordering Site: [facility] Ordering Physician: YANN MANZANARES Luis Armando Screening Digital - 03/21/24 - Report Status:Signed EXAM: Luis Armando Screening Digital EXAM DATE AND TIME: 03/21/2024 3:49 PM HISTORY: Screening. Left breast biopsy in 2015, pathology benign. COMPARISON: 02/16/23, 09/21/19, 09/18/18, 09/15/17 TECHNIQUE: Bilateral digital breast tomosynthesis was performed in the CC and MLO projections. Computer aided detection with StackAdapt 3D 3.1 was employed. TISSUE DENSITY: b. [...] TREADWELL MD Dic Date/Time: 03/22/2449 Sign date/Time: 03/22/24 0850 Procedure Note Erica Treadwell MD - 07/16/2024 [facility] Diagnostic Imaging Department [address] [place] [phone] Patient: DENISA VERDUZCO /Age/Sex: 1955 - 68 - F Unit#: [id number] Location/Status: [facility]/REG CLI Mnemonic/Ordering Site: [facility] Ordering Physician: YANN MANZANARES [facility] Screening Digital - 03/21/24 - Report Status:Signed EXAM: [facility] Screening Digital EXAM DATE AND TIME: 03/21/2024 3:49 PM HISTORY: Screening. Left breast biopsy in 2016, pathology benign. COMPARISON: 02/16/23, 09/21/19, 09/18/18, 09/15/17 TECHNIQUE: Bilateral digital breast tomosynthesis was performed in the CCand MLO projections. Computer aided detection with StackAdapt 3D 3.1was employed. TISSUE DENSITY: b. There [...] MD IMG BI PROCEDURES Final Result * [facility] DEXA AXIAL SKELETON (03/22/2024 8:14 AM EDT) Anatomical Region Laterality Modality Mammography 03/21/2024 3:07 PM EDT Narrative 03/22/2024 8:14 AM EDT [facility] Diagnostic Imaging Department [address] [place] [address] [id number] Patient: DENISA VERDUZCO /Age/Sex: 1955 - 68 - F Unit#: [id number] Location/Status: [facility]/REG CLI Mnemonic[facility] Ordering Physician: YANN MANZANARES [facility] Dexa Axial Skeleton - 03/21/24 - [...] probability of hip fracture of 7.1%. Code 55128 Dictating Physician: MILTON ORTEGA MD Electronically Signed by: MILTON ORTEGA MD Dic Date/Time: 03/22/24812 Sign date/Time: 03/22/24813 Procedure Note Milton Ortega MD - 07/16/2024 [facility] Diagnostic Imaging Department [address] [place] [address] Patient: DENISA VERDUZCO /Age/Sex: 1955 68 - F Unit#: [id number] [facility] Ordering Physician: YANN MANZANARES [facility] Dexa Axial Skeleton - 03/21/24 - [...] density of the femurs bilaterally is 0.912 gm/rh6amohr is 90% of that of young normals [...] probability of hip fracture of 7.1%. Code 15408 Dictating Physician: MILTON ORTEGA MD Electronically Signed by: MILTON ORTEGA MD Dic Date/Time: 03/22/24812 Sign date/Time: 03/22/2414 Yann Manzanares MD IMG BI PROCEDURES Final Result * Falls Risk Assessment (02/09/2024) Falls Risk Assessment Abstracted Result [facility] Historical Provider HEALTH MAINTENANCE Final Result * Hepatitis C Screening (02/09/2024) Pathologist Critical access hospital Hepatitis C Screening Abstracted Result [facility] Historical Provider HEALTH MAINTENANCE Final Result from Last 3 Months or Most Recently Relevant to Health Maintenance Insurance [employer] Advance Directives Documents on File Type Date Recorded Patient Director Fundraising Expl anation Advance Directives and Living Will 09/11/2025 1:55 PM [facility] Health Care Decision (hx) 04/27/2024 HE ALTH [...] AD VERA DIRECTIVE * Full Code - Confirmed (Latest Code Status on File) Date Activated Date Inactivated Comments 09/05/2025 2:21 PM 09/06/2025 8:13 PM This code s tatus was ascertained in the following way: Code status discussion: discussion with patient To update the patient's code status, place a code status order. Do not modify or discontinue any currently active code status orders. * Full Code - Default Date Activated Date Inactivated Comments 09/05/2025 1:18 PM 09/05/2025 2:21 PM This is orde r is used when code status has not been discussed with the patient, or code status is otherwise unknown/unconfirmed To update the patient's code status, place a code status order. Do not modify or discontinue any currently active code status orders. * Full Code - Default Date Activated Date Inactivated Comments 07/06/2025 2:50 [...] discontinue any currently active code status orders. Healthcare Agents on File Name Relationship Healthcare Agent Relationship Communication Heather Calabrese Daughter Health Care Agent Care Teams Customs And Immigration Officer Relationship Specialty Start Date End Date Barron, Kerilyn Jacqueline, BLAS [address] [facility] [place] [phone] PCP - General Family Medicine 03/06/25
--- OUTSIDE RECORDS SUMMARY | 2025-09-19 10:41 | XMS_ITS | Encounter Summary ---
Author Organization [facility] Address [address] [place] [address] Care Team Providers Care Credit Counselor Name Role Phone Kinjal Barron LDR RN Primary Care Provid er Encounter Details Date Type Department Care Team (Late st Contact Info) Description 09/10/2025 Lab Requisition [facility] - Main Lab [address] [place] [address] Janice Núñez MD [address] [place], [place] [phone] Malignant neoplasm of unspecified part of left [...] Description 10/18/2025 10:45 AM EST Office Visit [facility] Hematology Oncology [address] [place] [phone] Lashanda Mcgill, [address] [place] [address] documented as of this encounter Procedures Procedure Name Priority Date/Time Associated Diagnosis Comments COMPLETE BLOOD COUNT Routine 09/11/2025 5:56 AM [...] encounter Results * (ABNORMAL) Basic metabolic panel (09/11/2025 5:56 AM EDT) Sodium 142 133 - 145 mmol/L LAB CHEMISTRY METHOD 09/11/2025 9:07 AM [facility] Potassium 3.8 3.5 - 5.5 mmol/L LAB CHEMISTRY METHOD 09/11/2025 9:07 AM [facility] Chloride 100 96 - 110 mmol/L LAB CHEMISTRY METHOD 09/11/2025 9:07 AM [facility] CO2 39(H) 21 - 32 mmol/L LAB CHEMISTRY METHOD 09/11/2025 9:07 AM [facility] Anion Gap 3 3 - 11 LAB CHEMISTRY METHOD 09/11/2025 9:07 AM [facility] Glucose 107(H) 70 - 100 mg/dL LAB CHEMISTRY METHOD 09/11/2025 9:07 AM [facility] BUN 9 5 - 25 mg/dL LAB CHEMISTRY METHOD 09/11/2025 9:07 AM [facility] Creatinine 0.82 0.50 - 1.10 mg/dL LAB CHEMISTRY METHOD 09/11/2025 9:07 AM [facility] eGFR 77 >=60 mL/min/1. 73m2 LAB CHEMISTRY METHOD 09/11/2025 9:07 AM [facility] Comment:Calculation based on the Chronic Kidney Disease Epidemiology Collaboration (CKD-EPI) equation refit without adjustment for race. BUN/Creatinine Ratio 11.0 LAB CHEMISTRY METHOD 09/11/2025 9:[address] [facility] Calcium 9.1 8.5 - 10.5 mg/dL LAB CHEMISTRY METHOD 09/11/2025 9:[address] [facility] Blood Venous blood specimen / Unknown Venipuncture / Unknown 09/11/2025 5:56 AM EDT 09/11/2025 8:17 AM EDT us Janice Núñez MD LAB BLOOD ORDERABLES Final Resul t [facility] [address] [place] [address], [place] [phone] * (ABNORMAL) Complete blood count (09/11/2025 5:56 AM EDT) WBC 4.7(L) 4.8 - 10.8 K/mcL LAB HEMETOLOGY METHOD 09/11/2025 8:[address] [facility] RBC 3.90 3.80 - 4.80 M/mcL LAB HEMETOLOGY METHOD 09/11/2025 8:[address] [facility] Hemoglobin 10.8(L) 11.5 - 16.0 g/dL LAB HEMETOLOGY METHOD 09/11/2025 8:[address] [facility] Hematocrit 37.7 35.0 - 47.0 % LAB HEMETOLOGY METHOD 09/11/2025 8:[address] [facility] MCV 95.9 79.0 - 98.0 FL LAB HEMETOLOGY METHOD 09/11/2025 8:48 AM [facility] MCH 27.5 27.0 - 32.0 pcg LAB HEMETOLOGY METHOD 09/11/2025 8:[address] [facility] MCHC 28.6(L) 32.0 - 37.0 g/dL LAB HEMETOLOGY METHOD 09/11/2025 8:[address] [facility] RDW 15.9(H) 11.0 - 15.0 % LAB HEMETOLOGY METHOD 09/11/2025 8:[address] [facility] Platelets 381 130 - 400 K/mcL LAB HEMETOLOGY METHOD 09/11/2025 8:[address] [facility] MPV 9.6 7.0 - 11.0 FL LAB HEMETOLOGY METHOD 09/11/2025 8:[address] [facility] NRBC 0.0 <1.0 % LAB HEMETOLOGY METHOD 09/11/2025 8:[address] [facility] NRBC Absolute 0.00 <0.10 K/mcL LAB HEMETOLOGY METHOD 09/11/2025 8:[address] [facility] Blood Venous blood specimen / Unknown Venipuncture / Unknown 09/11/2025 5:56 AM EDT 09/11/2025 8:14 AM EDT Janice Núñez MD LAB BLOOD ORDERABLES Final Resul t [facility] [address] [place] [address], documented in this encounter Visit Diagnoses Diagnosis Malignant neoplasm of unspecified part of left bronchus or lung (CMS/HCC V24, CMS/HCC V28) Chronic respiratory failure with hypercapnia (CMS/HCC V24, CMS/HCC V28) documented in this encounter Additional Health Concerns Assessment Noted Time PHQ-9 Depression Total Score: 1 07/19/20 25 5:04 PM EDT documented as of this encounter Care Teams Credit Counselor Relationship Specialty Start Date End Date Kinjal Barron FNP [address] [place] [phone] PCP - General Family Medicine 03/06/25 documented as of this encounter
--- OUTSIDE RECORDS SUMMARY | 2025-09-19 10:41 | XMS_ITS | Encounter Summary ---
Author Organization [facility] Address [address] [place] [address] Care Team Providers Care Accounting Representative Name Role Phone Kinjal Barron AUDITING MANAGER Primary Care Provid er Encounter Details Date Type Department Care Team (Late st Contact Info) Description 09/09/2025 Lab Requisition [facility] - Main Lab [address] [place] [address] Janice Núñez MD [address] [place], [place] [phone] Chronic obstructive pulmonary disease, unspecified (CMS/HCC V24, CMS/HCC V28); Malignant neoplasm of unspecified part of unspecified bronchus or lung (CMS/HCC V24, CMS/HCC V28) Social History Tobacco [...] Description 10/18/2025 10:45 AM EST Office Visit [facility] Hematology Oncology [address] [place] [phone] Lashanda Mcgill, [address] [place] [address] documented as of this encounter Procedures Procedure Name Priority Date/Time Associated Diagnosis Comments BASIC METABOLIC PANEL Routine 09/09/2025 7:29 AM EDT Chronic obstructive pulmonary disease, unspecified (CMS/HCC V24, [facility] V28) Malignant neoplasm of unspecified part of unspecified bronchus or lung ([facility] V24, [facility] V28) documented in this encounter Results * (ABNORMAL) Basic metabolic panel (09/09/2025 7:29 AM EDT) Sodium 141 133 - 145 mmol/L LAB CHEMISTRY METHOD 09/09/2025 2:03 PM [facility] Potassium 3.7 3.5 - 5.5 mmol/L LAB CHEMISTRY METHOD 09/09/2025 2:03 PM [facility] Chloride 98 96 - 110 mmol/L LAB CHEMISTRY METHOD 09/09/2025 2:03 PM [facility] CO2 39(H) 21 - 32 mmol/L LAB CHEMISTRY METHOD 09/09/2025 2:03 PM [facility] Anion Gap 4 3 - 11 LAB CHEMISTRY METHOD 09/09/2025 2:03 PM [facility] Glucose 80 70 - 100 mg/dL LAB CHEMISTRY METHOD 09/09/2025 2:03 PM [facility] BUN 10 5 - 25 mg/dL LAB CHEMISTRY METHOD 09/09/2025 2:03 PM [facility] Creatinine 0.69 0.50 - 1.10 mg/dL LAB CHEMISTRY METHOD 09/09/2025 2:03 PM [facility] eGFR 93 >=60 mL/min/1. 73m2 LAB CHEMISTRY METHOD 09/09/2025 2:03 PM [facility] Comment:Calculation based on the Chronic Kidney Disease Epidemiology Collaboration (CKD-EPI) equation refit without adjustment for race. BUN/Creatinine Ratio 14.5 LAB CHEMISTRY METHOD 09/09/2025 2:03 PM [facility] Calcium 8.8 8.5 - 10.5 mg/dL LAB CHEMISTRY METHOD 09/09/2025 2:03 PM EDT [facility] Blood Venous blood specimen / Unknown Venipuncture / Unknown 09/09/2025 7:29 AM EDT 09/09/2025 12:28 PM EDT us Janice Núñez MD LAB BLOOD ORDERABLES Final Resul t [facility] [address] [place] [address], documented in this encounter Visit Diagnoses Diagnosis Chronic obstructive pulmonary disease, unspecified (CMS/HCC V24, CMS/HCC V28) Malignant neoplasm of unspecified part of unspecified bronchus or lung (CMS/HCC V24, CMS/[facility] V28) documented in this encounter Additional Health Concerns Assessment Noted Time PHQ-9 Depression Total Score: 1 07/19/20 25 5:04 PM EDT documented as of this encounter Care Teams Accounting Representative Relationship Specialty Start Date End Date Kinjal Barron FNP [address] [place] [phone] PCP - General Family Medicine 03/06/25 documented as of this encounter
--- OUTSIDE RECORDS SUMMARY | 2025-09-19 10:41 | XMS_ITS | Encounter Summary ---
Author Organization [facility] Address [address] [place] [address] Care Team Providers Care Roll Machine Operator Name Role Phone Kinjal Barron CUFFER Primary Care Provid er Encounter Details Date Type Department Care Team (Late st Contact Info) Description 09/03/2025 Lab Requisition [facility] - Main Lab [address] [place] [address] Janice Núñez MD [address] [place], [place] [phone] Malignant neoplasm of unspecified part of left [...] of Assessment Author Yes 07/06/2025 1:10 AM CECET Cheryle Velazquez RN * Calculated C-SSRS Risk Score (Lifetime/Recent) Answer Date of Assessment Author No Risk Indicated 09/05/2025 10:43 AM EDT Bhargavi Hanna RN * [place] Suicide Severity Rating Scale (Screener/Recent Self-Report) Question Answer Date of Assessment Author 1. Wish to be (Past 1 Month) No 09/05/2025 10:43 AM CECET Greg Suarez RN 2. Non-Specific Active Suicidal Thoughts (Past 1 Month) No 09/05/2025 10:43 AM CECET Greg Suarez RN 6. Suicidal Behavior (Lifetime) No 09/05/2025 10:43 AM CECET Greg Suarez RN documented as of this encounter Mental [...] 10/18/2025 10:45 AM EST Office Visit [facility] Hematology Oncology [address] [place] [phone] Lashanda Mcgill, [address] [place] [address] documented as of this encounter Procedures Procedure Name Priority Date/Time Associated Diagnosis Comments COMPLETE BLOOD COUNT Routine 09/04/2025 6:53 AM EDT Malignant neoplasm of unspecified part of left bronchus or lung (CMS/HCC V24, CMS/HCC V28) Chronic respiratory failure with hypercapnia (CMS/HCC V24, CMS/HCC V28) BASIC METABOLIC PANEL Routine 09/04/2025 6:53 AM EDT Malignant neoplasm of unspecified part of left bronchus or lung (CMS/HCC V24, CMS/HCC V28) Chronic respiratory failure with hypercapnia (CMS/HCC V24, CMS/HCC V28) documented in this encounter Results * (ABNORMAL) Basic metabolic panel (09/04/2025 6:53 AM EDT) Sodium 139 133 - 145 mmol/L LAB CHEMISTRY METHOD 09/04/2025 11:05 AM [facility] Potassium 3.5 3.5 - 5.5 mmol/L LAB CHEMISTRY METHOD 09/04/2025 11:05 AM [facility] Chloride 99 96 - 110 mmol/L LAB CHEMISTRY METHOD 09/04/2025 11:05 AM [facility] CO2 34(H) 21 - 32 mmol/L LAB CHEMISTRY METHOD 09/04/2025 11:05 AM [facility] Anion Gap 6 3 - 11 LAB CHEMISTRY METHOD 09/04/2025 11:05 AM [facility] Glucose 88 70 - 100 mg/dL LAB CHEMISTRY METHOD 09/04/2025 11:05 AM [facility] BUN 13 5 - 25 mg/dL LAB CHEMISTRY METHOD 09/04/2025 11:05 AM [facility] Creatinine 0.86 0.50 - 1.10 mg/dL LAB CHEMISTRY METHOD 09/04/2025 11:05 AM [facility] eGFR 72 >=60 mL/min/1. 73m2 LAB CHEMISTRY METHOD 09/04/2025 11:05 AM T [facility] Comment:Calculation based on the Chronic Kidney Disease Epidemiology Collaboration (CKD-EPI) equation refit without adjustment for race. BUN/Creatinine Ratio 15.1 LAB CHEMISTRY METHOD 09/04/2025 11:05 AM [facility] Calcium 8.8 8.5 - 10.5 mg/dL LAB CHEMISTRY METHOD 09/04/2025 11:05 AM [facility] Blood Venous blood specimen / Unknown Venipuncture / Unknown 09/04/2025 6:53 AM EDT 09/04/2025 9:34 AM EDT us Janice Núñez MD LAB BLOOD ORDERABLES Final Resul t [facility] [address] [place] [address], * (ABNORMAL) Complete blood count (09/04/2025 6:53 AM EDT) WBC 4.1(L) 4.8 - 10.8 K/mcL LAB HEMETOLOGY METHOD 09/04/2025 10:12 AM EDT [facility] RBC 4.00 3.80 - 4.80 M/mcL LAB HEMETOLOGY METHOD 09/04/2025 10:12 AM [facility] Hemoglobin 10.9(L) 11.5 - 16.0 g/dL LAB HEMETOLOGY METHOD 09/04/2025 10:12 AM EDT [facility] Hematocrit 37.5 35.0 - 47.0 % LAB HEMETOLOGY METHOD 09/04/2025 10:12 AM EDT [facility] MCV 94.5 79.0 - 98.0 FL LAB HEMETOLOGY METHOD 09/04/2025 10:12 AM EDT [facility] MCH 27.5 27.0 - 32.0 pcg LAB HEMETOLOGY METHOD 09/04/2025 10:12 AM EDT [facility] MCHC 29.1(L) 32.0 - 37.0 g/dL LAB HEMETOLOGY METHOD 09/04/2025 10:12 AM [facility] RDW 15.9(H) 11.0 - 15.0 % LAB HEMETOLOGY METHOD 09/04/2025 10:12 AM [facility] Platelets 356 130 - 400 K/mcL LAB HEMETOLOGY METHOD 09/04/2025 10:12 AM T [facility] MPV 9.4 7.0 - 11.0 FL LAB HEMETOLOGY METHOD 09/04/2025 10:12 AM [facility] NRBC 0.0 <1.0 % LAB HEMETOLOGY METHOD 09/04/2025 10:12 AM T [facility] NRBC Absolute 0.00 <0.10 K/mcL LAB HEMETOLOGY METHOD 09/04/2025 10:12 AM [facility] Blood Venous blood specimen / Unknown Venipuncture / Unknown 09/04/2025 6:53 AM EDT 09/04/2025 10:12 AM EDT us Janice Núñez MD LAB BLOOD ORDERABLES Final Resul t [facility] [address] [place] [address], documented in this encounter Visit Diagnoses Diagnosis Malignant neoplasm of unspecified part of left bronchus or lung (CMS/HCC V24, CMS/HCC V28) Chronic respiratory failure with hypercapnia ([facility]/HCC V24, [facility] V28) documented in this encounter Additional Health Concerns Infection Onset Date Last Indicated Resolved Time Respiratory Rule-Out 09/05/2025 09/05/2025 025 3:59 PM EDT COVID-19 Rule-Out 09/05/2025 09/05/2025 09/05/2025 3:59 PM EDT Assessment Noted Time PHQ-9 Depression Total Score: 1 07/19/20 25 5:04 PM EDT documented as of this encounter Care Teams Roll Machine Operator Relationship Specialty Start Date End Date Kinjal Barron FNP [address] [place] [phone] PCP - General Family Medicine 03/06/25 documented as of this encounter
--- OUTSIDE RECORDS SUMMARY | 2025-09-19 10:41 | XMS_ITS | Encounter Summary ---
Author Organization [facility] Address [address] [place] [address] Care Team Providers Care Reroller Hand Name Role Phone Kinjal Barron PIECER UP Primary Care Provid er Encounter Details Date Type Department Care Team (Late st Contact Info) Description 08/20/2025 Lab Requisition [facility] - Main Lab [address] [place] [address] Janice Núñez MD [address] [place], [place] [id number] Malignant neoplasm of unspecified part of left bronchus or lung (CMS/HCC V24, CMS/HCC V28); Respiratory failure, unspecified, unspecified whether with hypoxia or hypercapnia (CMS/HCC V24, CMS/HCC V28); Other senior living (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 therapy Social History Tobacco Use [...] Description 10/18/2025 10:45 AM EST Office Visit [facility] Hematology Oncology [address] [place] [phone] Lashanda Mcgill, [address] [place] [address] documented as of this encounter Procedures Procedure Name Priority Date/Time Associated Diagnosis Comments VITAMIN D 25 HYDROXY Routine 08/20/2025 4:50 AM EDT Malignant neoplasm of unspecified part of left bronchus or lung (CMS/HCC V24, CMS/HCC V28) Respiratory failure, unspecified, unspecified whether with hypoxia or hypercapnia (CMS/HCC V24, CMS/HCC V28) Other senior living (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 therapy COMPLETE BLOOD COUNT Routine 08/20/2025 4:50 AM EDT Malignant neoplasm of unspecified part of left bronchus or lung (CMS/HCC V24, CMS/HCC V28) Respiratory failure, unspecified, unspecified whether with hypoxia or hypercapnia (CMS/HCC V24, CMS/HCC V28) Other senior living (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 therapy THYROID STIMULATING HORMONE Routine 08/20/2025 4:50 AM EDT Malignant neoplasm of unspecified part of left bronchus or lung (CMS/HCC V24, CMS/HCC V28) Respiratory failure, unspecified, unspecified whether with hypoxia or hypercapnia (CMS/HCC V24, CMS/HCC V28) Other senior living (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 therapy HEMOGLOBIN A1C Routine 08/20/2025 4:50 AM EDT Malignant neoplasm of unspecified part of left bronchus or lung (CMS/HCC V24, CMS/HCC V28) Respiratory failure, unspecified, unspecified whether with hypoxia or hypercapnia (CMS/HCC V24, CMS/HCC V28) Other senior living (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 therapy FOLATE Routine 08/20/2025 4:50 AM EDT Malignant neoplasm of unspecified part of left bronchus or lung (CMS/HCC V24, CMS/HCC V28) Respiratory failure, unspecified, unspecified whether with hypoxia or hypercapnia (CMS/HCC V24, CMS/HCC V28) Other senior living (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 therapy VITAMIN B12 Routine 08/20/2025 4:50 AM EDT Malignant neoplasm of unspecified part of left bronchus or lung (CMS/HCC V24, CMS/HCC V28) Respiratory failure, unspecified, unspecified whether with hypoxia or hypercapnia (CMS/HCC V24, CMS/HCC V28) Other senior living (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 therapy COMPREHENSIVE METABOLIC PANEL Routine 08/20/2025 4:50 AM EDT Malignant neoplasm of unspecified part of left bronchus or lung (CMS/HCC V24, CMS/HCC V28) Respiratory failure, unspecified, unspecified whether with hypoxia or hypercapnia (CMS/HCC V24, CMS/HCC V28) Other technician terminal and repeater (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 therapy documented in this encounter Results * Vitamin D 25 hydroxy (08/20/2025 4:50 AM EDT) Pathologist [facility] Vit D, 25-Hydroxy 37.7 30.0 - 80.0 ng/mL LAB CHEMISTRY METHOD 08/20/2025 12:17 PM EDT [facility] Blood Venous blood specimen / Unknown Venipuncture / Unknown 08/20/2025 4:50 AM EDT 08/20/2025 9:32 AM EDT us Janice Núñez MD LAB BLOOD ORDERABLES Final Resul t Performing Organization Address [facility]/ZIP Co de Phone Number [facility] [address] [place] [address], [place] [phone] * Vitamin B12 (08/20/2025 4:50 AM EDT) [facility] Vitamin B-12 592 250 - 900 pcg/mL LAB CHEMISTRY METHOD 08/20/2025 11:03 AM EDT [facility] Blood Venous blood specimen / Unknown Venipuncture / Unknown 08/20/2025 4:50 AM EDT 08/20/2025 9:32 AM EDT us Janice Núñez MD LAB BLOOD ORDERABLES Final Resul t Performing Organization Address City/[facility]/ZIP Co de Phone Number [facility] [address] [place] [address], [place] [phone] * Hemoglobin A1c (08/20/2025 4:50 AM EDT) [facility] Hemoglobin A1C 5.8 <6.5 % LAB CHEMISTRY METHOD 08/20/2025 12:16 PM EDT [facility] Mean Bld Glu Estim. 120 mg/dL LAB CHEMISTRY METHOD 08/20/2025 12:16 PM EDT [facility] Blood Venous blood specimen / Unknown Venipuncture / Unknown 08/20/2025 4:50 AM EDT 08/20/2025 9:32 AM EDT us Janice Núñez MD LAB BLOOD ORDERABLES Final Resul t [facility] [address] [place] [address], [place] [phone] * Thyroid stimulating hormone (08/20/2025 4:50 AM EDT) [facility] TSH 2.01 0.40 - 4.00 mcIU/mL LAB CHEMISTRY METHOD 08/20/2025 12:18 PM EDT [facility] Blood Venous blood specimen / Unknown Venipuncture / Unknown 08/20/2025 4:50 AM EDT 08/20/2025 9:32 AM EDT us Janice Núñez MD LAB BLOOD ORDERABLES Final Resul t [facility] [address] [place] [address], [place] [phone] * (ABNORMAL) Folate (08/20/2025 4:50 AM EDT) [facility] Folate 19.1(H) 2.8 - 17.0 ng/ml LAB CHEMISTRY METHOD 08/20/2025 11:03 AM EDT [facility] Blood Venous blood specimen / Unknown Venipuncture / Unknown 08/20/2025 4:50 AM EDT 08/20/2025 9:32 AM EDT us Janice Núñez MD LAB BLOOD ORDERABLES Final Resul t [facility] [address] [place] [address], [place] [phone] * (ABNORMAL) Comprehensive metabolic panel (08/20/2025 4:50 AM EDT) Sodium 140 133 - 145 mmol/L LAB CHEMISTRY METHOD 08/20/2025 11:04 AM [facility] Potassium 3.3(L) 3.5 - 5.5 mmol/L LAB CHEMISTRY METHOD 08/20/2025 11:04 AM [facility] Chloride 102 96 - 110 mmol/L LAB CHEMISTRY METHOD 08/20/2025 11:04 AM [facility] CO2 31 21 - 32 mmol/L LAB CHEMISTRY METHOD 08/20/2025 11:04 AM [facility] Anion Gap 7 3 - 11 LAB CHEMISTRY METHOD 08/20/2025 11:04 AM [facility] Glucose 81 70 - 100 mg/dL LAB CHEMISTRY METHOD 08/20/2025 11:04 AM [facility] BUN 19 5 - 25 mg/dL LAB CHEMISTRY METHOD 08/20/2025 11:04 AM [facility] Creatinine 0.78 0.50 - 1.10 mg/dL LAB CHEMISTRY METHOD 08/20/2025 11:04 AM [facility] eGFR 81 >=60 mL/min/1. 73m2 LAB CHEMISTRY METHOD 08/20/2025 11:04 AM [facility] Comment:Calculation based on the Chronic Kidney Disease Epidemiology Collaboration (CKD-EPI) equation refit without adjustment for race. BUN/Creatinine Ratio 24.4 LAB CHEMISTRY METHOD 08/20/2025 11:04 AM [facility] Calcium 8.4(L) 8.5 - 10.5 mg/dL LAB CHEMISTRY METHOD 08/20/2025 11:04 AM EDT [facility] AST (SGOT) 18 10 - 42 unit/L LAB CHEMISTRY METHOD 08/20/2025 11:04 AM EDT [facility] ALT (SGPT) 29 10 - 60 unit/L LAB CHEMISTRY METHOD 08/20/2025 11:04 AM EDT [facility] Alkaline Phosphatase 78 42 - 121 unit/L LAB CHEMISTRY METHOD 08/20/2025 11:04 AM T [facility] Total Protein 5.9(L) 6.0 - 8.0 g/dL LAB CHEMISTRY METHOD 08/20/2025 11:04 AM [facility] Albumin 3.2 3.2 - 5.0 g/dL LAB CHEMISTRY METHOD 08/20/2025 11:04 AM [facility] Total Bilirubin 0.1 0.0 - 1.4 mg/dL LAB CHEMISTRY METHOD 08/20/2025 11:04 AM T [facility] Blood Venous blood specimen / Unknown Venipuncture / Unknown 08/20/2025 4:50 AM EDT 08/20/2025 9:32 AM EDT us Janice Núñez MD LAB BLOOD ORDERABLES Final Resul t [facility] [address] [place] [address], * (ABNORMAL) Complete blood count (08/20/2025 4:50 AM EDT) WBC 7.6 4.8 - 10.8 K/mcL LAB HEMETOLOGY METHOD 08/20/2025 9:58 AM EDT [facility] RBC 3.80 3.80 - 4.80 M/mcL LAB HEMETOLOGY METHOD 08/20/2025 9:58 AM EDT [facility] Hemoglobin 10.5(L) 11.5 - 16.0 g/dL LAB HEMETOLOGY METHOD 08/20/2025 9:58 AM [facility] Hematocrit 34.8(L) 35.0 - 47.0 % LAB HEMETOLOGY METHOD 08/20/2025 9:58 AM [facility] MCV 92.1 79.0 - 98.0 FL LAB HEMETOLOGY METHOD 08/20/2025 9:58 AM EDT [facility] MCH 27.8 27.0 - 32.0 pcg LAB HEMETOLOGY METHOD 08/20/2025 9:58 AM [facility] MCHC 30.2(L) 32.0 - 37.0 g/dL LAB HEMETOLOGY METHOD 08/20/2025 9:58 AM [facility] RDW 16.4(H) 11.0 - 15.0 % LAB HEMETOLOGY METHOD 08/20/2025 9:58 AM [facility] Platelets 306 130 - 400 K/mcL LAB HEMETOLOGY METHOD 08/20/2025 9:58 AM [facility] MPV 9.1 7.0 - 11.0 FL LAB HEMETOLOGY METHOD 08/20/2025 9:58 AM [facility] NRBC 0.0 <1.0 % LAB HEMETOLOGY METHOD 08/20/2025 9:58 AM [facility] NRBC Absolute 0.00 <0.10 K/mcL LAB HEMETOLOGY METHOD 08/20/2025 9:58 AM [facility] Blood Venous blood specimen / Unknown Venipuncture / Unknown 08/20/2025 4:50 AM EDT 08/20/2025 9:32 AM EDT Janice Núñez MD LAB BLOOD ORDERABLES Final Resul t [facility] [address] [place] [address], documented in this encounter Visit Diagnoses Diagnosis Malignant neoplasm of unspecified part of left bronchus or lung (CMS/HCC V24, CMS/[facility] V28) Respiratory failure, unspecified, unspecified whether with hypoxia or hypercapnia (CMS/[facility] V24, [facility] V28) Other technician terminal and repeater (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 therapy documented in this encounter Additional Health Concerns Infection Onset Date Last Indicated Resolved Time Respiratory Rule-Out 09/05/2025 09/05/2025 025 3:59 PM EDT COVID-19 Rule-Out 09/05/2025 09/05/2025 09/05/2025 3:59 PM EDT Assessment Noted Time PHQ-9 Depression Total Score: 1 07/19/20 25 5:04 PM EDT documented as of this encounter Care Teams Reroller Hand Relationship Specialty Start Date End Date Kinjal Barron FNP [address] [place] [address] PCP - General Family Medicine 03/06/25 documented as of this encounter
--- OUTSIDE RECORDS SUMMARY | 2025-09-19 10:41 | XMS_ITS | Encounter Summary ---
Author Organization [facility] Address [address] [place] [address] Care Team Providers Care Emergency Response Coordinator Name Role Phone Kinjal Barron FIELD ARTILLERY FIRE CONTROL MAN Primary Care Provid er Encounter Details Date Type Department Care Team (Late st Contact Info) Description 09/01/2025 Lab Requisition [facility] - Main Lab [address] [place] [address] Janice Núñez MD [address] [place] [address] Frequency of micturition; Fever, unspecified Social History Tobacco Use Types Packs/Day Years [...] Description 10/18/2025 10:45 AM EST Office Visit [facility] Hematology Oncology [address] [place] [phone] Lashanda Mcgill, DO [address] [place] [address] documented as of this encounter Procedures Procedure Name Priority Date/Time Associated Diagnosis Comments URINALYSIS WITH REFLEX MICROSCOPIC Routine 08/31/2025 4:00 PM EDT Frequency of micturition Fever, unspecified URINALYSIS WITH REFLEX MICROSCOPIC Routine 08/31/2025 4:00 PM EDT Frequency of micturition Fever, unspecified CULTURE URINE Routine 08/31/2025 4:00 PM EDT Frequency of micturition Fever, unspecified documented in this encounter Results * (ABNORMAL) Urinalysis with reflex microscopic (08/31/2025 4:00 PM EDT) Specific [place] Urine 1.008 1.003 - 1.030 LAB URINALYSIS - AUTOMATED METHOD 09/01/2025 10:46 AM [facility] pH, Urine 6.5 5.0 - 8.0 pH LAB URINALYSIS - AUTOMATED METHOD 09/01/2025 10:46 AM [facility] Leukocytes, Urine Trace(A) Negative LAB URINALYSIS - AUTOMATED METHOD 09/01/2025 10:46 AM [facility] Nitrite, Urine Negative Negative LAB URINALYSIS - AUTOMATED METHOD 09/01/2025 10:46 AM [facility] Protein, Urine Negative <=Trace mg/dL LAB URINALYSIS - AUTOMATED METHOD 09/01/2025 10:46 AM [facility] Glucose, Urine Negative Negative mg/dL LAB URINALYSIS - AUTOMATED METHOD 09/01/2025 10:46 AM [facility] Ketones, Urine Negative Negative mg/dL LAB URINALYSIS - AUTOMATED METHOD 09/01/2025 10:46 AM [facility] Urobilinogen, Urine 0.2 0.2 - 1.0 mg/dL LAB URINALYSIS - AUTOMATED METHOD 09/01/2025 10:46 AM [facility] Bilirubin, Urine Negative Negative LAB URINALYSIS - AUTOMATED METHOD 09/01/2025 10:46 AM [facility] Blood, Urine Small(A) Negative LAB URINALYSIS - AUTOMATED METHOD 09/01/2025 10:46 AM [facility] RBC, Urine 1.0 0 - 4 /HPF LAB URINALYSIS - AUTOMATED METHOD 09/01/2025 10:46 AM EDT [facility] WBC, Urine 7.0(H) 0 - 4 /HPF LAB URINALYSIS - AUTOMATED METHOD 09/01/2025 10:46 AM EDT [facility] Squamous Epithelial, Urine 10 0 - 60 /LPF LAB URINALYSIS - AUTOMATED METHOD 09/01/2025 10:46 AM EDT [facility] Bacteria, Urine Negative Negative /HPF LAB URINALYSIS - AUTOMATED METHOD 09/01/2025 10:46 AM EDT [facility] Hyaline Casts, Urine 0.4 0 - 3 /LPF LAB URINALYSIS - AUTOMATED METHOD 09/01/2025 10:46 AM EDT [facility] Urine Urine specimen obtained by clean catch procedure / Unknown Non-blood Collection / Unknown 08/31/2025 4:00 PM EDT 09/01/2025 10:18 AM EDT us Janice Núñez MD LAB URINE ORDERABLES Final Resul t [facility] [address] [place] [address], * Culture urine (08/31/2025 4:00 PM EDT) Culture, Urine <10,000 CFU/mL gram positive cocci, insignificant count, no further workup 09/02/2025 11:17 AM EDT [facility] Urine Urine specimen obtained by clean catch procedure / Unknown Non-blood Collection / Unknown 08/31/2025 4:00 PM EDT 09/01/2025 10:18 AM EDT us Janice Núñez MD LAB MICROBIOLOGY - GENERAL ORDER KANE Final Result [facility] [address] [place] [address], documented in this encounter Visit Diagnoses Diagnosis Frequency of micturition Urinary frequency Fever, unspecified documented in this encounter Additional Health Concerns Infection Onset Date Last Indicated Resolved Time Respiratory Rule-Out 09/05/2025 09/05/2025 025 3:59 PM EDT COVID-19 Rule-Out 09/05/2025 09/05/2025 09/05/2025 3:59 PM EDT Assessment Noted Time PHQ-9 Depression Total Score: 1 07/19/20 5:04 PM EDT documented as of this encounter Care Teams Emergency Response Coordinator Relationship Specialty Start Date End Date Kinjal Barron FNP [address] [place] [address] PCP - General Family Medicine 03/06/25 documented as of this encounter
--- OUTSIDE RECORDS SUMMARY | 2025-09-19 10:41 | XMS_ITS | Encounter Summary ---
Author Organization [facility] Address [address] [place] [address] Care Team Providers Care Instructional Consultant Name Role Phone Kinjal Barron TRAIN CONTROL ELECTRONIC TECHNICIAN Primary Care Provid er Encounter Details Date Type Department Care Team (Late st Contact Info) Description 08/30/2025 Lab Requisition [facility] - Main Lab [address] [place] [address] Janice Núñez MD [address] [place] [address] Hyperkalemia Social History Tobacco Use Types Packs/Day Years [...] [facility] [address] [place] [phone] Lashanda Mcgill, DO [address] [place] [address] documented as of this encounter Procedures Procedure Name Priority Date/Time Associated Diagnosis Comments BASIC METABOLIC PANEL Routine 08/30/2025 6:02 AM EDT Hyperkalemia documented in this encounter Results * (ABNORMAL) Basic metabolic panel (08/30/2025 6:02 AM EDT) Sodium 140 133 - 145 mmol/L LAB CHEMISTRY METHOD 08/30/2025 2:28 PM [facility] Potassium 3.5 3.5 - 5.5 mmol/L LAB CHEMISTRY METHOD 08/30/2025 2:28 PM [facility] Chloride 99 96 - 110 mmol/L LAB CHEMISTRY METHOD 08/30/2025 2:28 PM [facility] CO2 35(H) 21 - 32 mmol/L LAB CHEMISTRY METHOD 08/30/2025 2:28 PM [facility] Anion Gap 6 3 - 11 LAB CHEMISTRY METHOD 08/30/2025 2:28 PM [facility] Glucose 86 70 - 100 mg/dL LAB CHEMISTRY METHOD 08/30/2025 2:28 PM [facility] BUN 13 5 - 25 mg/dL LAB CHEMISTRY METHOD 08/30/2025 2:28 PM [facility] Creatinine 0.85 0.50 - 1.10 mg/dL LAB CHEMISTRY METHOD 08/30/2025 2:28 PM [facility] eGFR 73 >=60 mL/min/1. 73m2 LAB CHEMISTRY METHOD 08/30/2025 2:28 PM [facility] Comment:Calculation based on the Chronic Kidney Disease Epidemiology Collaboration (CKD-EPI) equation refit without adjustment for race. BUN/Creatinine Ratio 15.3 LAB CHEMISTRY METHOD 08/30/2025 2:28 PM [facility] Calcium 8.7 8.5 - 10.5 mg/dL LAB CHEMISTRY METHOD 08/30/2025 2:28 PM [facility] Blood Venous blood specimen / Unknown Venipuncture / Unknown 08/30/2025 6:02 AM EDT 08/30/2025 9:37 AM EDT Janice Núñez MD LAB BLOOD ORDERABLES Final Resul t [facility] [address] [place] [address], documented in this encounter Visit Diagnoses Diagnosis Hyperkalemia Hyperpotassemia documented in this encounter Additional Health Concerns Infection Onset Date Last Indicated Resolved Time Respiratory Rule-Out 09/05/2025 09/05/2025 025 3:59 PM EDT COVID-19 Rule-Out 09/05/2025 09/05/2025 09/05/2025 3:59 PM EDT Assessment Noted Time PHQ-9 Depression Total Score: 1 07/19/20 25 5:04 PM EDT documented as of this encounter Care Teams Instructional Consultant Relationship Specialty Start Date End Date Kinjal Barron FNP [address] [place] [address] PCP - General Family Medicine 03/06/25 documented as of this encounter
--- OUTSIDE RECORDS SUMMARY | 2025-09-19 10:41 | XMS_ITS | Encounter Summary ---
Author Organization [facility] Address [address] [place] [address] Care Team Providers Care Plant Pathologist Name Role Phone Kinjal Barron PLATE AND WELD INSPECTOR Primary Care Provid er Encounter Details Date Type Department Care Team (Late st Contact Info) Description 08/27/[address] [facility] - Main Lab [address] [place] [address] Janice Núñez MD [address] [place], [place] [phone] Malignant neoplasm of unspecified part of left [...] Description 10/18/2025 10:45 AM EST Office Visit [facility] Hematology Oncology [address] [place] [phone] Lashanda Mcgill, [address] [place] [address] documented as of this encounter Procedures Procedure Name Priority Date/Time Associated Diagnosis Comments COMPLETE BLOOD COUNT Routine 08/28/2025 9:04 AM EDT Malignant neoplasm of unspecified part of left bronchus or lung (CMS/HCC V24, CMS/HCC V28) Chronic respiratory failure with hypercapnia (CMS/HCC V24, CMS/HCC V28) BASIC METABOLIC PANEL Routine 08/28/2025 9:04 AM EDT Malignant neoplasm of unspecified part of left bronchus or lung (CMS/HCC V24, CMS/HCC V28) Chronic respiratory failure with hypercapnia (CMS/HCC V24, CMS/HCC V28) documented in this encounter Results * (ABNORMAL) Basic metabolic panel (08/28/2025 9:04 AM EDT) Sodium 138 133 - 145 mmol/L LAB CHEMISTRY METHOD 08/28/2025 1:05 PM [facility] Potassium 3.4(L) 3.5 - 5.5 mmol/L LAB CHEMISTRY METHOD 08/28/2025 1:05 PM [facility] Chloride 97 96 - 110 mmol/L LAB CHEMISTRY METHOD 08/28/2025 1:05 PM [facility] CO2 36(H) 21 - 32 mmol/L LAB CHEMISTRY METHOD 08/28/2025 1:05 PM [facility] Anion Gap 5 3 - 11 LAB CHEMISTRY METHOD 08/28/2025 1:05 PM [facility] Glucose 111(H) 70 - 100 mg/dL LAB CHEMISTRY METHOD 08/28/2025 1:05 PM [facility] BUN 15 5 - 25 mg/dL LAB CHEMISTRY METHOD 08/28/2025 1:05 PM [facility] Creatinine 0.78 0.50 - 1.10 mg/dL LAB CHEMISTRY METHOD 08/28/2025 1:05 PM [facility] eGFR 81 >=60 mL/min/1. 73m2 LAB CHEMISTRY METHOD 08/28/2025 1:05 PM [facility] Comment:Calculation based on the Chronic Kidney Disease Epidemiology Collaboration (CKD-EPI) equation refit without adjustment for race. BUN/Creatinine Ratio 19.2 LAB CHEMISTRY METHOD 08/28/2025 1:05 PM EDT [facility] Calcium 8.5 8.5 - 10.5 mg/dL LAB CHEMISTRY METHOD 08/28/2025 1:05 PM EDT [facility] Blood Venous blood specimen / Unknown Venipuncture / Unknown 08/28/2025 9:04 AM EDT 08/28/2025 11:54 AM EDT us Janice Núñez MD LAB BLOOD ORDERABLES Final Resul t [facility] [address] [place] [address], [place] [phone] * (ABNORMAL) Complete blood count (08/28/2025 9:04 AM EDT) WBC 3.8(L) 4.8 - 10.8 K/mcL LAB HEMETOLOGY METHOD 08/28/2025 1:14 PM EDT [facility] RBC 4.20 3.80 - 4.80 M/mcL LAB HEMETOLOGY METHOD 08/28[facility]2025 [facility] Hemoglobin 12.0 11.5 - 16.0 g/dL LAB HEMETOLOGY METHOD 08/28/2025 1:14 PM EDT [facility] Hematocrit 40.8 35.0 - 47.0 % LAB HEMETOLOGY METHOD 08/28/2025 1:14 PM EDT [facility] MCV 96.2 79.0 - 98.0 FL LAB HEMETOLOGY METHOD 08/28/2025 1:14 PM [facility] MCH 28.3 27.0 - 32.0 pcg LAB HEMETOLOGY METHOD 08/28/2025 1:14 PM EDT [facility] MCHC 29.4(L) 32.0 - 37.0 g/dL LAB HEMETOLOGY METHOD 08/28/2025 1:14 PM EDT [facility] RDW 15.8(H) 11.0 - 15.0 % LAB HEMETOLOGY METHOD 08/28/2025 1:14 PM EDT [facility] Platelets 354 130 - 400 K/mcL LAB HEMETOLOGY METHOD 08/28/2025 1:14 PM EDT [facility] MPV 9.2 7.0 - 11.0 FL LAB HEMETOLOGY METHOD 08/28/2025 1:14 PM EDT [facility] NRBC 0.0 <1.0 % LAB HEMETOLOGY METHOD 08/28/2025 1:14 PM EDT [facility] NRBC Absolute 0.00 <0.10 K/mcL LAB HEMETOLOGY METHOD 08/28/2025 1:14 PM EDT [facility] Blood Venous blood specimen / Unknown Venipuncture / Unknown 08/28/2025 9:04 AM EDT 08/28/2025 11:55 AM EDT Janice Núñez MD LAB BLOOD ORDERABLES Final Resul t [facility] [address] [place] [address], documented in this encounter Visit Diagnoses Diagnosis [...] Noted Time PHQ-9 Depression Total Score: 1 08/22/20 25 5:04 PM EDT documented as of this encounter Care Teams Plant Pathologist Relationship Specialty Start Date End Date Kinjal Barron FNP [address] [place] [address] PCP - General Family Medicine 03/06/25 documented as of this encounter
== END 2025-09-19 10:09 | disposition home or self-care (01) ==
PROVIDERS: PCP Nurse Practitioner Family; Visit Provider Hospitalist
DX: J43.2 Centrilobular emphysema (principal); R91.1 Solitary pulmonary nodule; J96.11 Chronic respiratory failure with hypoxia; J96.12 Chronic respiratory failure with hypercapnia; F51.01 Primary insomnia; G47.33 Obstructive sleep apnea (adult) (pediatric); C34.92 Malignant neoplasm of unspecified part of left bronchus or lung
CPT/HCPCS: 99215; G2211

== ENCOUNTER → 2025-09-19 09:29 | Outpatient (BNVA) | payer OTHER, SELFPAY | PROVIDERS: PCP Nurse Practitioner Family; Visit Provider Hospitalist | DX: J43.2 Centrilobular emphysema (principal); R91.1 Solitary pulmonary nodule; J96.11 Chronic respiratory failure with hypoxia; F51.01 Primary insomnia; G47.33 Obstructive sleep apnea (adult) (pediatric); J96.12 Chronic respiratory failure with hypercapnia; C34.92 Malignant neoplasm of unspecified part of left bronchus or lung | CPT/HCPCS: 99212 ==

== ENCOUNTER 2025-10-23 13:42 | Inpatient (IN) | payer OTHER, SELFPAY ==
[2025-10-23] VITALS (13 sets, daily range): BP systolic 113–161; BP diastolic 50–82; PULSE 54–97; RESP 15–19; TEMP 36.1–36.9; O2SAT 82–100; BMI 33.0; BMI 33.9
--- NOTE | 2025-10-23 | ECG_ITS ---
Test Reason : SOB Blood Pressure : */* mmHG Vent. Rate : 92 BPM Atrial Rate : 92 BPM P-R Int : 126 ms QRS Dur : 90 ms QT Int : 344 ms P-R-T Axes : 53 58 39 degrees QTcB Int : 425 ms Normal sinus rhythm Normal ECG When compared with ECG of 06-Aug-2025 16:55, ST no longer depressed in Anterolateral leads T wave inversion no longer evident in Inferior leads T wave inversion no longer evident in Lateral leads Referred By: Generic ED Physician Electronically Signed By: Miguel Elizondo
--- NOTE | ~2025-10-23 | CT_ITS ---
CLINICAL HISTORY: worsening hypoxia CT angiography chest with contrast. 3D Postprocessing. Comparison: None provided Findings: Calcified coronary atherosclerotic disease. Right internal jugular approach MediPort with tip within the right atrium. The thoracic aorta is normal caliber. No main or segmental pulmonary emboli identified. Hiatal hernia. Centrilobular lucencies predominantly upper lobes. No active inflammatory changes. The upper abdomen is unremarkable. Lfvn-zp-zvregsfo osteopenia. T11 superior endplate wedge compression fracture with less than 20% vertebral body height loss with superimposed sclerosis. IMPRESSION: 1. Centrilobular emphysema. 2. Calcified coronary atherosclerotic disease. 3. Hiatal hernia. 4. Right internal jugular approach MediPort with tip within the right atrium. 5. No main or segmental pulmonary emboli identified 6. No acute intrathoracic findings. This document has been electronically signed by: Oj Marsh MD on 10/23/2025 17:38:15
--- NOTE | ~2025-10-23 | XR_ITS ---
EXAMINATION: XR CHEST 2 VIEWS HISTORY: SOB COMPARISON: Comparison is made with the prior examination dated . FINDINGS: PA and lateral views of the chest are submitted. A right-sided port is unchanged in position. There is scarring at the lung bases. No new airspace opacities are identified. A nodular opacity with adjacent metallic clip is seen in the left upper lung zone. This is smaller than on a prior study dated 06/26/2025. There is no pleural effusion, pneumothorax, or pulmonary vascular congestion. The heart is normal in size. There is degenerative disc disease of the spine. XR/XR chest 2V IMPRESSION: No acute cardiopulmonary abnormality. Electronically signed by: Amandeep Murphy MD 10/23/2025 02:41 PM EST
--- NOTE | 2025-10-23 14:08 | ED.GENADULT ---
HPI - General Adult General Chief complaint: Dyspnea Stated complaint: coming from snf, spo2 91% Time Seen by Provider: 10/23/25 14:08 Source: patient and EMS Mode of arrival: EMS Limitations: no limitations History of Present Illness ED Provider: Megha Espinosa PA-C HPI narrative: Patient is a 70 year old assigned female at with a history of lung cancer, RITA on non-invasive vent at night, COPD on 5 liters at baseline presenting to the emergency department today with concerns of decreased oxygen levels at night. Patient states that she has noticed her oxygen levels have dropped down to 40% at night even while on the BiPAP and on Trelegy. Patient states that she feels short of breath during these moments and has recorded the incidents on her phone. Patient states that she has also felt more short of breath with exertion using the rollator walker. Patient states that she continues to follow with Dr. Acharya. Patient denies any other complaints at this time. Related Data Home Medications ?Medication ?Instructions ?Recorded ?Confirmed alendronate 70 mg tablet (Fosamax) 70 mg PO DOMINGUEZ 02/09/21 10/23/25 mirtazapine 15 mg tablet 7.5 mg PO BEDTIME 09/10/21 10/23/25 sennosides 8.6 mg tablet (Senokot) 8.6 mg PO BEDTIME 09/10/21 10/23/25 Oxygen Home Use 04/15/23 10/22/24 nebulizers 04/15/23 10/22/24 pantoprazole 40 mg tablet,delayed 40 mg PO DAILY@0630 06/21/24 10/23/25 release docusate sodium 100 mg capsule 100 mg PO DAILY PRN Constipation 07/27/24 10/23/25 aripiprazole 10 mg tablet 10 mg PO DAILY 08/20/24 10/23/25 mineral oil 1 appl topical Q48H PRN eczema 08/20/24 10/23/25 omega 9-cug-wjg-fish oil 1,000 mg 1 cap PO BID 08/20/24 10/23/25 (120 mg-180 mg) capsule (Fish Oil) apixaban 5 mg tablet (Eliquis) 5 mg PO BID 09/26/24 10/23/25 gabapentin 100 mg capsule 100 mg PO BID 01/18/25 10/23/25 ferrous gluconate 324 mg (38 mg 324 mg PO DAILY 07/25/25 10/23/25 iron) tablet calcium carbonate (Oyster Shell 500 mg PO BID 08/06/25 10/23/25 Calcium) cholecalciferol (vitamin D3) 25 25 mcg PO DAILY 08/06/25 10/23/25 mcg (1,000 unit) tablet (Vitamin D3) fluticasone furoate 200 1 ea inhalation DAILY dyspnea 08/06/25 10/23/25 mcg-vilanterol 25 mcg/dose inhalation powder (Breo Ellipta) furosemide 40 mg tablet 40 mg PO DAILY 08/06/25 10/23/25 lactulose 10 gram/15 mL oral 15 ml PO DAILY PRN constipation 08/06/25 10/23/25 solution (Enulose) lamotrigine 200 mg tablet 200 mg PO BID 08/06/25 10/23/25 vilazodone 40 mg tablet 40 mg PO DAILY 08/06/25 10/23/25 L.acidophilus-bif.longum 15 mg (1 1 cap PO DAILY 10/23/25 10/23/25 billion cell)capsule,delayed release (Probiotic Pearls) acetaminophen 325 mg tablet 650 mg PO Q4H PRN Fever/Pain 10/23/25 10/23/25 acetazolamide 250 mg tablet 250 mg PO MOWEFR 10/23/25 10/23/25 aspirin 81 mg tablet 81 mg PO DAILY 10/23/25 10/23/25 atorvastatin 40 mg tablet 40 mg PO DAILY 10/23/25 10/23/25 bisacodyl 10 mg rectal suppository 10 mg NH DAILY PRN Constipation 10/23/25 10/23/25 guaifenesin 600 mg tablet, 1,200 mg PO BID PRN Congestion 10/23/25 10/23/25 extended release 12 hr guaifenesin 600 mg tablet, 600 mg PO BID 10/23/25 10/23/25 extended release 12 hr loratadine 10 mg tablet (Claritin) 10 mg PO DAILY 10/23/25 10/23/25 magnesium hydroxide 400 mg/5 mL 30 ml PO DAILY PRN Constipation 10/23/25 10/23/25 oral suspension (Milk of Magnesia) metoprolol succinate 100 mg 100 mg PO DAILY 10/23/25 10/23/25 tablet,extended release 24 hr prednisone 10 mg tablet 10 mg PO DAILY 10/23/25 10/23/25 sodium phosphates 19 gram-7 118 ml NH DAILY PRN Constipation 10/23/25 10/23/25 gram/197 mL enema (Fleet Enema Extra) tramadol 50 mg tablet 50 mg PO Q6H PRN Pain 10/23/25 10/23/25 trazodone 50 mg tablet 12.5 mg PO BEDTIME Sleep 10/23/25 10/23/25 Previous Rx's ?Medication ?Instructions ?Recorded fluticasone propionate 50 1 spray intranasal DAILY Allergies 02/02/25 mcg/actuation nasal 30 days #16 grams spray,suspension montelukast 10 mg tablet 10 mg PO BEDTIME 90 days #90 tabs 02/02/25 ipratropium bromide 0.02 % 2.5 ml inhalation QID #300 mL 04/10/25 solution for inhalation albuterol sulfate 2.5 mg/3 mL 2.5 mg (3 mL) inhalation QID #360 06/19/25 (0.083 %) solution for nebulization mL albuterol sulfate 90 mcg/actuation 2 puff inhalation Q6H PRN 06/19/25 aerosol inhaler Respiratory Distress #8.5 grams theophylline 300 mg 300 mg PO Q12H #60 tabs 07/04/25 tablet,extended release,12 hr Allergies Allergy/AdvReac Type Severity Reaction Status Date / Time fluoxetine Allergy Severe Irritable Verified 10/23/25 13:54 codeine (Codeine) Allergy Intermediate RESTLESS/RA Verified 10/23/25 13:54 SH haloperidol (Haldol) Allergy Intermediate Palpitation Verified 10/23/25 13:54 s Review of Systems Constitutional: Constitutional: Reports as per HPI Eyes: Eyes: Reports as per HPI ENT: Reports as per HPI Cardiovascular: Cardiovascular: Reports as per HPI Respiratory: Respiratory: Reports as per HPI Gastrointestinal: Gastrointestinal: Reports as per HPI Genitourinary: Genitourinary: Reports as per HPI Musculoskeletal: Musculoskeletal: Reports as per HPI Integumentary/Breasts: Skin/Breast: Reports as per HPI Neurologic: Reports as per HPI Psychiatric: Psychiatric: Reports as per HPI Endocrine: Endocrine: Reports as per HPI Hematologic/Lymphatic: Hematologic/Lymphatic: Reports as per HPI Allergic/Immunologic: Allergic/Immunologic: Reports as per HPI [facility] Past Medical History Attestation statement: The following information was validated with the patient. Source: old records reviewed and nursing notes reviewed Medical History Lung cancer Pulmonary nodule 1 cm or greater in diameter Lung mass RITA (obstructive sleep apnea) Cor pulmonale Rib fractures Pulmonary nodule Tubular adenoma of colon (~2006) Osteopenia (~2012) Bronchopneumonia Chest pain Chronic respiratory alkalosis ILD (interstitial lung disease) CO2 retention Acute on chronic respiratory failure with hypoxia and hypercapnia Bipolar depression Eczema Limb swelling Insomnia Bronchitis Vasomotor rhinitis COPD (chronic obstructive pulmonary disease) Chronic respiratory failure Fall Acute metabolic encephalopathy Acute and chronic respiratory failure with hypercapnia Surgical History History of carpal tunnel surgery (~2000) History of ventral hernia repair (~2003) History of left inguinal hernia repair (~1995) History of tracheostomy (~2016) History of cataract surgery (~2018) History of colonoscopy Family History Family History Other Hypertension Social History Social History Household Members: Children Household Members Other:: Daughter, son-in-law, grandchildren Housing: House Housing Other:: senior care Are you a primary care navigator to a significant other at home: No Do you presently have visiting nurse or other home services: Yes (everyday, 3.5hrs/day) Alcohol intake: former Patient Tobacco Use Status: Former Tobacco user Tobacco use type: Cigarette Years Smoked: 20+ years e-Cigarette/Vaping Use: Never Used Second Hand Smoke Exposure: No Advance Directives: Yes Advance Directives on File: Yes Advance Directives Date on File: 11/30/21 Do you have a plan to hurt others: No Plan service: No Current occupational status: disabled Physical Exam ED Vital Signs: Vital Signs - 24 hr 10/23/25 13:51 10/23/25 14:04 10/23/25 14:39 Temperature 98.5 F Pulse Rate 97 89 Respiratory Rate 18 19 Blood Pressure 128/50 L 136/66 Pulse Oximetry 82 L 93 98 Oxygen Delivery Method Nasal Cannula Nasal Cannula Nasal Cannula Oxygen Flow Rate 5 3 10/23/25 15:22 Temperature 98.2 F Pulse Rate 84 Respiratory Rate 18 Blood Pressure 115/60 Pulse Oximetry 99 Oxygen Delivery Method Nasal Cannula Oxygen Flow Rate 3 BMI result Body Mass Index 33.0 Const General: cooperative, no acute distress, alert and awake Nutritional Appearance: well nourished Orientation/consciousness: patient oriented x3 HENMT Head: Yes normal to inspection and Yes atraumatic Ears: hearing grossly normal bilaterally and external ears normal General nose exam: Normal external nose present, no nasal discharge noted and no epistaxis Face and sinus: Yes normal facial exam, No abrasion and No laceration Mouth: Normal oral and palatal mucosa present, no drooling and no muffled voice Eyes General: appearance normal, both eyes and all related structures Periorbital: periorbital findings normal Eyelids: Yes eyelids normal Conjunctivae: conjunctivae normal Pupils: Equal, round and reactive pupils present EOM: EOMs intact bilaterally Neck Neck: Yes normal visual inspection and Yes full ROM Resp Other: on 5 liters of oxygen via nasal cannula Effort & Inspection: able to speak in complete sentences and labored Neuro General: patient oriented x3, moves all extremities and CN's II-XI intact bilaterally Cranial nerves: Yes Equal, round and reactive pupils present Cognition (Neuro): normal cognition Extrem General: Yes normal to inspection, Yes full ROM and Yes capillary refill normal Psych Appearance: grossly normal Mental Status: mental status grossly normal Affect: normal affect Attitude: cooperative Thought process: Normal thought process present Thought content: Normal thought content present Insight: Good insight present (Psych) Medications Administered Generic Name Dose Route Start Last Admin Trade Name Freq PRN Reason Stop Dose Admin Albuterol Sulfate 2.5 mg 10/23/25 16:00 10/23/25 16:11 Albuterol Sulfate (0.083%) 2.5 Mg/3 Ml Vial.Neb INHALE 2.5 mg RQ4H WHILE AWAKE ALYSSA Administration Azithromycin 500 mg/ Sodium 250 mls @ 125 mls/hr 10/23/25 15:00 10/23/25 15:17 Chloride IV 10/23/25 16:59 125 mls/hr ONCE ONE Administration Discontinued Medications Generic Name Dose Route Start Last Admin Trade Name Freq PRN Reason Stop Dose Admin Methylprednisolone Sodium Succinate 60 mg 10/23/25 15:00 10/23/25 15:17 Methylprednisolone Sod Succ 125 Mg/2 Ml Vial IVPUSH 10/23/25 15:01 60 mg ONCE ONE Administration Medical Decision Making Medical Decision Making MDM Narrative: Patient is a 70 year old assigned female at with a history of lung cancer, RITA on non-invasive vent at night, COPD on 5 liters at baseline presenting to the emergency department today with concerns of decreased oxygen levels at night. Patient's physical exam was as noted in the physical exam portion of this note. Patient was initially hypoxic at 82% upon arrival on her usual 5 liters of oxygen. Patient was bumped up briefly and her oxygen saturation improved. Patient's blood work showed CO level 45, hgb 8.5 and VBG ph 7.42, CO2 79, O2 125, HCO3 51, O2 sat 99. Patient's EKG was unremarkable. Patient's chest x-ray showed no acute process. Patient received IV Azithromycin and Solu-medrol. I spoke with my attending physician, Dr. Jack, who recommended hospital admission for COPD exacerbation with episodes of hypoxia. Patient's clinical presentation is not consistent with sepsis (@1531). I spoke to the hospitalist team who agreed to admission. I explained my physical exam findings as well as all test results to the patient. I answered all questions asked by the patient. Patient verbalized agreement and understanding with this treatment plan and admission. Differential Diagnosis Differential Diagnoses: The differential diagnosis associated with the presentation includes COPD exacerbation Hypoxia Admission/Observation Consideration of admission/observation: Escalation of care including admission/observation considered Patient admitted as noted in the MDM Rationale portion of this note. Consult Healthcare Provider Management of the patient was discussed with: Hospitalist (agreed to admission as noted in the MDM Rationale portion of this note. ) Lab Data [facility] Lab Attestation statement: I reviewed the patient's lab results. My interpretation of these results are in the MDM Rationale portion of this note. 10/23/25 14:24 10/23/25 14:24 Labs: Lab Results 10/23/25 10/23/25 Range/Units 14:24 14:28 WBC 9.9 (4.8-10.8) X10*3/uL RBC 3.11 L (4.20-5.50) X10*6/uL Hgb 8.5 L D (12.0-16.0) g/dl Hct 30.2 L (37.0-47.0) % MCV 97.1 (80.0-98.0) fL MCH 27.3 (27.0-33.0) pg MCHC 28.1 L (31.0-35.0) g/dl RDW 15.0 (11.0-16.0) % Plt Count 390 D (160-400) X10*3/uL MPV 8.8 L (9.4-12.3) fL Immature Gran % (Auto) 1.0 H (0.0-0.4) % Neut % (Auto) 91.6 H (45-73) % Lymph % (Auto) 3.4 L (20-40) % [place] % (Auto) 2.9 (2-11) % Eos % (Auto) 0.6 (0-4) % Baso % (Auto) 0.5 (0-2) % Lymph # (Auto) 0.3 L (1.2-4.9) X10*3/uL [place] # (Auto) 0.3 (0.1-1.2) X10*3/uL Eos # (Auto) 0.1 (0.0-0.4) X10*3/uL Baso # (Auto) 0.1 (0.0-0.2) X10*3/uL Abs Immat Gran (auto) 0.10 H (0.00-0.03) X10*3/uL Absolute Neuts (auto) 9.1 H (2.0-8.3) x10*3/uL Absolute Nucleated RBC 0.000 (0.0-0.012) X10*3/uL Nucleated RBC % (auto) 0.0 (0.0-0.2) /100WBC Smear Tech's Comments VERIFIED PT 16.7 H (11.2-13.5) SEC INR 1.4 H (0.9-1.1) APTT 35.0 H (26.7-34.1) SEC VBG pH 7.42 (7.32-7.43) VBG pCO2 79 mmHg VBG pO2 125 mmHg VBG HCO3 51 H (22-26) mmol/L VBG O2 Saturation 99.0 % VBG Base Excess 22.7 mmol/L Sodium 142 (135-145) mmol/L Potassium 3.4 (3.3-5.1) mmol/L Chloride 92 L (96-108) mmol/L Carbon Dioxide 45 H* D (22-29) mmol/L Anion Gap 8 L (12-20) BUN 17 H (9-16) mg/dL Creatinine 0.95 (0.5-1.4) mg/dL Estim Creat Clear Calc 58.1 Estimated GFR 58 Random Glucose 156 H (60-115) mg/dL Calcium 9.3 (8.4-10.2) mg/dL Magnesium 1.8 (1.6-2.6) mg/dL Total Bilirubin 0.2 (0.0-1.0) mg/dL AST 22 (5-31) U/L ALT 11 (0-31) U/L Alkaline Phosphatase 68 (39-117) U/L Troponin I High Sens 5.5 (<3.5-17.0) ng/L NT-Pro-B Natriuret Pep 173.0 (<300) pg/mL Total Protein 6.6 (6.5-8.0) g/dL Albumin 4.3 (3.5-5.0) g/dL Influenza Type A (PCR) NEGATIVE (Negative) Influenza Type B (PCR) NEGATIVE (Negative) RSV RNA Qual (PCR) NEGATIVE (Negative) SARS-CoV-2 RNA (RT-PCR) NEGATIVE (Negative) Independent Interpretation I performed an independent interpretation of an: EKG and Plain X-Ray Interpretation: My interpretation is in agreement with the radiologist's impression of this imaging study as written below. EXAMINATION: XR CHEST 2 VIEWS HISTORY: SOB COMPARISON: Comparison is made with the prior examination dated . FINDINGS: PA and lateral views of the chest are submitted. A right-sided port is unchanged in position. There is scarring at the lung bases. No new airspace opacities are identified. A nodular opacity with adjacent metallic clip is seen in the left upper lung zone. This is smaller than on a prior study dated 06/26/2025. There is no pleural effusion, pneumothorax, or pulmonary vascular congestion. The heart is normal in size. There is degenerative disc disease of the spine. XR/XR chest 2V IMPRESSION: No acute cardiopulmonary abnormality. Electronically signed by: Amandeep Murphy MD 10/23/2025 02:41 PM [facility] Dictated By: Amandeep Murphy MD Signed By: Electronically signed by Amandeep Murphy MD 10/23/25 1441 I independently interpreted this EKG and am in agreement with the below findings: Vent. Rate: 92 BPM Atrial Rate: 92 BPM P-R Int: 126 ms QRS Dur: 90 ms QT Int: 344 ms P-R-T Axes: 53 58 39 degrees QTcB Int: 425 ms Normal sinus rhythm DD/ 1357 Radiology Impression Discussion of test interpretation with radiology: I have reviewed the radiologist's reading. Independent Historian Clinical information obtained from an independent historian. History obtained from or confirmed by: EMS (EMS provided additional history and confirmed the history provided by the patient. ) Critical Care Time Critical Care Time Critical Care Time: Yes Total Critical Care Time: 46 Attestation: I spent 46 minutes of Critical Care Time with this patient. This does not include time spent on separately reported billable procedures. Discharge Plan Discharge Clinical Impression: Acute exacerbation of chronic obstructive pulmonary disease, Hypoxia Patient Disposition: Admitted As Inpatient
[2025-10-23 14:33] LABS: VBG HCO3 51 mmol/L (22-26); VBG O2 % Saturation 99.0 %
[2025-10-23 14:33] LABS: Hematocrit 30.2 % (37.0-47.0); Hemoglobin 8.5 g/dl (12.0-16.0); Imm Gran Abs Auto 0.10 X10*3/uL (0.00-0.03); Imm Gran Pct Auto 1.0 % (0.0-0.4); Lymphocytes Absolute Auto 0.3 X10*3/uL (1.2-4.9); MANUAL DIFF FLAG SCAN; Mean Corpuscular HGB Conc 28.1 g/dl (31.0-35.0); Mean Corpuscular Hemoglobin 27.3 pg (27.0-33.0); Mean Corpuscular Volume 97.1 fL (80.0-98.0); NRBC Abs Auto 0.000 X10*3/uL (0.0-0.012); NRBC Pct Auto 0.0 /100WBC (0.0-0.2); Platelet Count 390 X10*3/uL (160-400); Red Blood Count 3.11 X10*6/uL (4.20-5.50); SCAN SMEAR FLAG 1; White Blood Count 9.9 X10*3/uL (4.8-10.8)
[2025-10-23 14:34] LABS: Venous Blood Gas Refer to POC result
[2025-10-23 14:40] LABS: INTERNATIONAL NORM RATIO 1.4 (0.9-1.1); Prothrombin Time 16.7 SEC (11.2-13.5)
--- NOTE | 2025-10-23 14:41 | PC.NURSE ---
hx lung cancer currently in remission. omar from [facility] c/o FERNANDEZ while utilizing rollator x 1 week. pt reports sx worsen at night. pt states she checks O2 via pulse oximeter at night and noted to be 40% on baseline 4L-6L via NC while on bipap/trelegy. upon ED arrival - pt noted to be 82% on 4L via NC while speaking short sentences upon ED arrival. pt educated on slowing down breathing/titrated to 6L via NC w/ good effect. otherwise vss and up to date. nsr on the bus monitor. power port accessed in right side of chest +blood return. labs obtained/sent to lab. ekg obtained by tech. CXR completed - pending results. pt otherwise titrated down to 3L via NC w/ good effect. speaking in full/clear sentences w/o difficulty. no apparent respiratory distress. no sob/wob noted. respirations even/unlabored. plan of care ongoing. call marroquin placed within reach.
[2025-10-23 14:43] LABS: Partial Thromboplastin Time 35.0 SEC (26.7-34.1)
[2025-10-23 14:46] LABS: Alanine Aminotransferase 11 U/L (0-31); Albumin Level 4.3 g/dL (3.5-5.0); Alkaline Phosphatase 68 U/L (39-117); Anion Gap 8 (12-20); Aspartate Amino Transferase 22 U/L (5-31); Blood Urea Nitrogen 17 mg/dL (9-16); Calcium 9.3 mg/dL (8.4-10.2); Carbon Dioxide 45 mmol/L (22-29); Chloride 92 mmol/L (96-108); Creatinine Clr Calc Pharmacy 58.1; Estimated Glomerular Filt Rate 58; Magnesium 1.8 mg/dL (1.6-2.6); Potassium 3.4 mmol/L (3.3-5.1); Sodium 142 mmol/L (135-145); Total Protein 6.6 g/dL (6.5-8.0)
[2025-10-23 14:51] LABS: NT Pro B Type Natriuretic Pept 173.0 pg/mL (<300); Troponin-I High Sensitivity 5.5 ng/L (<3.5-17.0)
[2025-10-23 15:14] LABS: Resp Syncy Virus RNA Qual PCR NEGATIVE (Negative); SARS COV2 PCR INHOUSE NEGATIVE (Negative)
--- NOTE | 2025-10-23 15:22 | PC.NURSE ---
no blood cultures needed prior to abx administration per provider order. medication administered per provider order. otherwise vss and up to date. nsr on the color television console monitor. pt remains on 3L via NC w/o difficulty - respirations remain even/unlabored. pending admission. plan of care ongoing. call marroquin placed within reach.
--- NOTE | 2025-10-23 15:38 | PHA.MEDREC ---
Addendum entered by Johnathon Singh PharmD 10/23/25 15:40: reviewed Original Note: Pharmacy Consult ? Medication Reconciliation Pharmacy has completed the medication reconciliation. Utilized list from [facility].
[2025-10-23] MEDS: Albuterol Sulfate (0.083%) 2.5 MG/3 ML VIAL.NEB INHALE ×2 (16:11→18:35)
--- NOTE | 2025-10-23 16:15 | P.HPHOSP_ITS ---
History of Present Illness Date of Service: 10/23/25 Chief Complaint: low oxygen 70 year old women with a history of COPD on home oxygen presenting with worsening hypoxia overnight. Patient reports that her oxygen goes as low as 40%. She uses Trelegy, iPAP and home oxygen up to 5 L. she denied, chest pain, nausea, vomiting, diarrhea, recent illness, sick contacts. Negative flu, RSV or COVID. Patient reports that this has been over the last several weeks that she has been feeling worse and her numbers have been low overnight.. Chest x-ray with no acute abnormality and no obvious pneumonia. No fever leukocytosis noted. In the ER, she was given Solu-Medrol and azithromycin. She will be admitted for further management and treatment of acute hypoxic respiratory failure secondary to COPD. Review of Systems 2 Review of Systems: Denies any recent fever chills or decrease in appetite respiratory See HPI cardiovascular denied chest pain gastrointestinal denies any dysphagia abdominal pain nausea vomiting or diarrhea genitourinary denies any dysuria frequency or hematuria musculoskeletal denies any joint pain or swelling neuropsych denies any weakness or seizures all other systems reviewed are negative [facility] Medical History (Updated 10/23/25 @ 16:28 by RAYSHAWN Connelly) Lung cancer Pulmonary nodule 1 cm or greater in diameter Lung mass RITA (obstructive sleep apnea) Cor pulmonale Rib fractures Pulmonary nodule Tubular adenoma of colon (~2006) Osteopenia (~2012) Bronchopneumonia Chest pain Chronic respiratory alkalosis ILD (interstitial lung disease) CO2 retention Acute on chronic respiratory failure with hypoxia and hypercapnia Bipolar depression Eczema Limb swelling Insomnia Bronchitis Vasomotor rhinitis COPD (chronic obstructive pulmonary disease) Chronic respiratory failure Fall Acute metabolic encephalopathy Acute and chronic respiratory failure with hypercapnia Family History Other Hypertension Surgical History History of carpal tunnel surgery (~2000) History of ventral hernia repair (~2003) History of left inguinal hernia repair (~1995) History of tracheostomy (~2016) History of cataract surgery (~2018) History of colonoscopy Social History Household Members: Children Household Members Other:: Daughter, son-in-law, grandchildren Housing: House Housing Other:: [facility] Are you a primary resident care director to a significant other at home: No Do you presently have visiting nurse or other home services: Yes (everyday, 3.5hrs/day) Alcohol intake: former Patient Tobacco Use Status: Former Tobacco user Tobacco use type: Cigarette Years Smoked: 20+ years e-Cigarette/Vaping Use: Never Used Second Hand Smoke Exposure: No Advance Directives: Yes Advance Directives on File: Yes Advance Directives Date on File: 11/30/21 Do you have a plan to hurt others: No Plan service: No Current occupational status: disabled Meds Allergies Allergy/AdvReac Type Severity Reaction Status Date / Time fluoxetine Allergy Severe Irritable Verified 10/23/25 13:54 codeine (Codeine) Allergy Intermediate RESTLESS/RA Verified 10/23/25 13:54 SH haloperidol (Haldol) Allergy Intermediate Palpitation Verified 10/23/25 13:54 s Active Medications: Current Medications Acetaminophen (Acetaminophen 325 Mg Tablet) 650 mg PO Q6H PRN PRN Reason: Pain, Mild 1-3,fever,headache Acetaminophen (Acetaminophen 325 Mg Tablet) 650 mg PO Q4H PRN PRN Reason: Fever/Pain Acetazolamide (Acetazolamide 250 Mg Tablet) 250 mg PO MOWEFR [facility] Albuterol Sulfate (Albuterol Sulfate (0.083%) 2.5 Mg/3 Ml Vial.Neb) 2.5 mg INHALE RQ4H WHILE AWAKE [facility] Last Admin: 10/23/25 16:11 Dose: 2.5 mg Apixaban (Apixaban 5 Mg Tablet) 5 mg PO BID [facility] Aripiprazole (Aripiprazole 10 Mg Tablet) 10 mg PO DAILY [facility] Atorvastatin Calcium (Atorvastatin Calcium 40 Mg Tablet) 40 mg PO DAILY [facility] Bisacodyl (Bisacodyl 10 Mg Supp.Rect) 10 mg [place] DAILY PRN PRN Reason: Constipation Calcium Carbonate (Calcium Carbonate 750 Mg Tab.Chew) 750 mg PO Q4H PRN PRN Reason: Heartburn Calcium Carbonate (Calcium Oyster Shell Elemental 500 Mg Tablet) 500 mg PO BID [facility] Docusate Sodium (Docusate Sodium 100 Mg Capsule) 100 mg PO DAILY PRN PRN Reason: Constipation Ferrous Sulfate (Ferrous Sulfate 324 Mg Tablet.Dr) 324 mg PO DAILY [facility] Furosemide (Furosemide 40 Mg Tablet) 40 mg PO DAILY [facility]; Protocol Gabapentin (Gabapentin 100 Mg Capsule) 100 mg PO BID [facility] Guaifenesin (Guaifenesin [place] 600 Mg Tab.Er.12h) 600 mg PO BID [facility] Guaifenesin (Guaifenesin La 600 Mg Tab.Er.12h) 1,200 mg PO BID PRN PRN Reason: Congestion Heparin Sodium (Porcine) (Heparin Sodium,Porcine 5,000 Unit/Ml Vial) 5,000 unit SUBCUT Q12H [facility] Azithromycin 500 mg/ Sodium (Chloride) 250 mls @ 125 mls/hr IV ONCE ONE Stop: 10/23/25 16:59 Last Admin: 10/23/25 15:17 Dose: 125 mls/hr Doxycycline Hyclate 100 mg/ (Sodium Chloride) 250 mls @ 166.67 mls/hr IV Q12H [facility] Ipratropium [place] (Ipratropium [place] 0.5 Mg/2.5 Ml Solution) mg INHALE QID [facility] Lactulose (Lactulose 20 Gm/30 Ml Solution) 10 gm PO DAILY PRN PRN Reason: Constipation Lamotrigine (Lamotrigine 100 Mg Tablet) 200 mg PO BID [facility] Loratadine (Loratadine 10 Mg Tablet) 10 mg PO DAILY [facility] Magnesium Hydroxide (Milk Of Magnesia 30 Ml Oral.Susp) 30 ml PO DAILY PRN PRN Reason: Constipation Magnesium Hydroxide (Milk Of Magnesia 30 Ml Oral.Susp) 30 ml PO DAILY PRN PRN Reason: Constipation Melatonin (Melatonin 3 Mg Tablet) 6 mg PO BEDTIME PRN PRN Reason: Insomnia Methylprednisolone Sodium Succinate (Methylprednisolone Sod Succ 40 Mg/Ml Vial) 40 mg IVPUSH Q12H [facility] Metoprolol Succinate (Metoprolol Succinate Er 100 Mg Tab.Er.24h) 100 mg PO DAILY [facility]; Protocol Mirtazapine (Mirtazapine 7.5 Mg Tablet) 7.5 mg PO BEDTIME [facility] Montelukast Sodium (Montelukast Sodium 10 Mg Tablet) 10 mg PO BEDTIME [facility] Non-Formulary Medication (Aspirin) 81 mg PO DAILY [facility] Non-Formulary Medication ([place] 1-Xsj-Lwf-Fish Oil [Fish Oil]) 1 cap PO BID [facility] Non-Formulary Medication (Pantoprazole) 40 mg PO DAILY@0630 [facility] Ondansetron HCl (Ondansetron Hcl 4 Mg/2 Ml Vial) 4 mg IVPUSH Q8H PRN PRN Reason: Nausea and Vomiting Senna (Sennosides 8.6 Mg Tablet) 8.6 mg PO BEDTIME [facility] Sodium Chloride (0.9 % Sodium Chloride Flush 3 Ml Syringe) 3 ml IVFLUSH QSHIFT [facility] Theophylline (Theophylline Anhydrous Er 300 Mg Tab.Er.12h) 300 mg PO Q12H [facility] Trazodone HCl (Trazodone Hcl 50 Mg Tablet) 12.5 mg PO BEDTIME [facility] Vilazodone HCl (Vilazodone Hcl 40 Mg Tablet) 40 mg PO DAILY [facility] Vitamin D (Cholecalciferol (Vitamin D3) 25 Mcg Tablet) 25 mcg PO DAILY [facility] Home Medications ?Medication ?Instructions ?Recorded ?Confirmed ?Last Taken ?Type alendronate 70 mg tablet (Fosamax) 70 mg PO DOMINGUEZ 1 10/23/25 08/04/25 History mirtazapine 15 mg tablet 7.5 mg PO BEDTIME 09/10/21 1 12/23/24 08/06/25 History sennosides 8.6 mg tablet (Senokot) 8.6 mg PO BEDTIME 1 10/23/25 08/05/25 History Oxygen Home Use 04/15/23 10/22/24 Unknown H istory nebulizers 04/15/23 10/22/24 Unknown H istory pantoprazole 40 mg tablet,delayed 40 mg PO DAILY@0630 06/21/24 10/23/25 08/06/25 History release docusate sodium 100 mg capsule 100 mg PO DAILY PRN Con stipation 07/27/24 10/23/25 08/19/24 History aripiprazole 10 mg tablet 10 mg PO DAILY 08/20/2409/2908/06/25 History mineral oil 1 appl topical Q48H PRN ecze ma 08/20/24 10/23/25 Unknown History omega 9-blx-idz-fish oil 1,000 mg 1 cap PO BID 4 10/23/25 08/06/25 History (120 mg-180 mg) capsule (Fish Oil) apixaban 5 mg tablet (Eliquis) 5 mg PO BID 09/26/2408/06/25 History gabapentin 100 mg capsule 100 mg PO BID 01/18/2510/2308/06/25 History ferrous gluconate 324 mg (38 mg 324 mg PO DAILY 10/23/25 08/06/25 History iron) tablet calcium carbonate (Oyster Shell 500 mg PO BID 08/06/25 10/23/25 Unknown History Calcium) cholecalciferol (vitamin D3) 25 25 mcg PO DAILY 10/23/25 Unknown History mcg (1,000 unit) tablet (Vitamin D3) fluticasone furoate 200 1 ea inhalation DAILY dyspne a 08/06/25 10/23/25 08/06/25 History mcg-vilanterol 25 mcg/dose inhalation powder (Breo Ellipta) furosemide 40 mg tablet 40 mg PO DAILY 08/06/2509/2908/06/25 History lactulose 10 gram/15 mL oral 15 ml PO DAILY PRN consti pation 08/06/25 10/23/25 Unknown History solution (Enulose) lamotrigine 200 mg tablet 200 mg PO BID 08/06/2510/2308/06/25 History vilazodone 40 mg tablet 40 mg PO DAILY 08/06/2509/2908/06/25 History L.acidophilus-bif.longum 15 mg (1 1 cap PO DAILY 10/2310/23/25 Unknown History billion cell)capsule,delayed release (Probiotic Pearls) acetaminophen 325 mg tablet 650 mg PO Q4H PRN Fever/Pa in 10/23/25 10/23/25 Unknown History acetazolamide 250 mg tablet 250 mg PO MOWEFR 10/23/25 10/23/25 Unknown History aspirin 81 mg tablet 81 mg PO DAILY 10/23/2509/29 Unknown History atorvastatin 40 mg tablet 40 mg PO DAILY 10/23/2509/29 Unknown History bisacodyl 10 mg rectal suppository 10 mg [place] DAILY PRN Constipation 10/23/25 10/23/25 Unknown History guaifenesin 600 mg tablet, 1,200 mg PO BID PRN Congest ion 10/23/25 10/23/25 Unknown History extended release 12 hr guaifenesin 600 mg tablet, 600 mg PO BID 10/23/2509/29 Unknown History extended release 12 hr loratadine 10 mg tablet (Claritin) 10 mg PO DAILY 09/2910/23/25 Unknown History magnesium hydroxide 400 mg/5 mL 30 ml PO DAILY PRN Con stipation 10/23/25 10/23/25 Unknown History oral suspension (Milk of Magnesia) metoprolol succinate 100 mg 100 mg PO DAILY 10/23/25 1 12/23/24 Unknown History tablet,extended release 24 hr prednisone 10 mg tablet 10 mg PO DAILY 10/23/2509/29 Unknown History sodium phosphates 19 gram-7 118 ml [place] DAILY PRN Consti pation 10/23/25 10/23/25 Unknown History gram/197 mL enema (Fleet Enema Extra) tramadol 50 mg tablet 50 mg PO Q6H PRN Pain 10/23/25 Unknown History trazodone 50 mg tablet 12.5 mg PO BEDTIME Sleep 10/23/25 Unknown History Physical Exam 2 Vital Signs and Narrative: Vital Signs: Last Vital Signs Temp 98.2 F 10/23/25 15:22 Pulse 86 10/23/25 16:14 Resp 18 10/23/25 16:14 BP 115/60 10/23/25 15:22 Pulse Ox 99 10/23/25 15:22 O2 Del Method Nasal Cannula 10/23/25 15:22 O2 Flow Rate 3 10/23/25 15:22 Oxygen Flow Rate 4 10/23/25 13:51 BMI result Body Mass Index 33.0 Appearing in no acute distress head is normocephalic atraumatic eyes pupils are PERRLA sclera is anicteric mouth throat mucous membranes are intact and moist neck is supple no lymphadenopathy, no JVD noted lung sounds diminished heart regular rate rhythm, clear S1, S2 positive bowel sounds, abdomen is soft, nontender neuro patient is alert x3, no focal deficits Results Labs 10/23/25 14:24 10/23/25 14:24 Labs: Laboratory Results - last 24 hr 10/23/25 10/23/25 14:24 14:28 MCV 97.1 MCH 27.3 MCHC 28.1 L RDW 15.0 Plt Count 390 D MPV 8.8 L Immature Gran % (Auto) 1.0 H Neut % (Auto) 91.6 H Lymph % (Auto) 3.4 L Sac % (Auto) 2.9 Eos % (Auto) 0.6 Baso % (Auto) 0.5 Lymph # (Auto) 0.3 L Sac # (Auto) 0.3 Eos # (Auto) 0.1 Baso # (Auto) 0.1 Abs Immat Gran (auto) 0.10 H Absolute Neuts (auto) 9.1 H Absolute Nucleated RBC 0.000 Nucleated RBC % (auto) 0.0 Smear Tech's Comments VERIFIED PT 16.7 H INR 1.4 H APTT 35.0 H VBG pH 7.42 VBG pCO2 79 VBG pO2 125 VBG HCO3 51 H VBG O2 Saturation 99.0 VBG Base Excess 22.7 Anion Gap 8 L Estim Creat Clear Calc 58.1 Estimated GFR 58 Random Glucose 156 H Calcium 9.3 Magnesium 1.8 Total Bilirubin 0.2 AST 22 ALT 11 Alkaline Phosphatase 68 Troponin I High Sens 5.5 NT-Pro-B Natriuret Pep 173.0 Total Protein 6.6 Albumin 4.3 Influenza Type A (PCR) NEGATIVE Influenza Type B (PCR) NEGATIVE RSV RNA Qual (PCR) NEGATIVE SARS-CoV-2 RNA (RT-PCR) NEGATIVE Imaging Radiologist's Impressions: Impressions Chest X-Ray 10/23/25 14:33 IMPRESSION: No acute cardiopulmonary abnormality. Electronically signed by: Amandeep Murphy MD 10/23/2025 02:41 PM [facility] Assessment and Plan (1) Paroxysmal atrial fibrillation: Status: Acute Plan 70 year old women admitted with worsening acute on chronic hypoxic respiratory failure secondary to COPD Acute on chronic respiratory failure secondary to COPD, worsening Patient uses Trelegy at night with oxygen and getting very low oxygen saturation numbers, patient reports as low as 40 No encephalopathy, VBG stable Start IV Solu-Medrol Scheduled DuoNebs Doxycycline Pulmonary consultation Continue home oxygen Continue Diamox Mental health Continue home medications Coronary artery disease Continue aspirin and statin Obstructive sleep apnea On Trelegy and CPAP Paroxysmal atrial fibrillation Stable heart rate Continue Eliquis, beta josé miguel Normocytic anemia Stable H&H, monitor Obesity class 2. BMI 33.0 Discussed importance of weight management as this may be contributing to worsening of other comorbidities DVT prophylaxis with Eliquis Full code Quality Stroke Does the patient have a stroke diagnosis?: No VTE Prior VTE?: No VTE Risk Level:: Medical - moderate - high VTE Device Contraindication: Treatment Not Indicated VTE Drug Contraindication: N/A - Med Ordered
--- NOTE | 2025-10-23 16:42 | PC.NURSE ---
pt noted to desat to 82% on 3L via NC - attempted to titrate pt to 6L via NC w/ no good effect. pt titrated to 15L via nonrebreather for a short period of time. pt eventually titrated to 3L via oxymask w/ an SPO2 of 91%. all other vss and up to date. nsr on the supervisor fiber locking. tolerating transition well. no apparent respiratory distress. no sob/wob noted. respirations even/unlabored. provider notified/aware of event.
[2025-10-23] MEDS: iohexoL 350 MG/ML 100 ML INFUS..BTL IV (17:01)
--- OUTSIDE RECORDS SUMMARY | 2025-10-23 17:25 | XMS_ITS | Data Portability ---
Author Organization [facility], [place], Main Office Address [address], [address] [place] [address] Care Team Providers Care Charge Accounts Audit Clerk Name Role Phone [facility] OTHER Assessment Encounter Date [...] Name and Address Organization Details Recorded Time Depressi ve disorder [id number] Active BLAS Rollins [address], [address], [place], [address] , [facility] 5 10:21:22 Acute exacerba tion of chronic obstruct sophie pulmonar y disease 821548952 Completed 12/20/2024 Not Available [facility] 5 09:41:59 Gastroes ophageal reflux disease 146831252 Completed 12/23/2024 BLAS GONZÁLES [address], [address], [place], [address] , [employer] [facility] 5 14:16:13 Bipolar disorder 56118110 Completed 12/20/2024 BLAS GONZÁLES [address], [address], [place], [address] , [employer] [employer] 5 14:04:18 Insomnia 587199280 Completed 12/20/2024 Not Available [facility] 5 09:42:54 Tachycar fiordaliza 4460029 Completed 12/23/2024 BLAS GONZÁLES [address], [address], [place], [address] , [employer] 5 13:43:54 Obesity 085281332 Completed 202012/20/2024 Not Available [facility] 5 09:42:44 Dyspnea 838982935 Completed 202012/20/2024 Not Available [facility] 5 09:42:45 Acute on chronic hypercap juan respirat ory failure 62254697112 06 Completed 202012/20/2024 Not Available [facility] 5 09:42:46 Late effect of accident al fall 314413708 Completed 202012/20/2024 Not Available [facility] 5 09:42:47 Unsteady when standing 121221738 Completed 202012/20/2024 Not Available [facility] 5 09:42:48 Syncope and collapse 204149052 Completed 202012/20/2024 Not Available [facility] 5 09:42:50 Acute exacerba tion of chronic obstruct sophie pulmonar y disease 199299949 Completed 202012/20/2024 Not Available [facility] 5 09:42:51 Muscle weakness 71683715 Completed 202012/20/2024 Not Available [facility] 5 09:42:53 Difficul ty walking 468704117 Completed 202012/20/2024 Not Available [facility] 5 09:42:55 Inflamma tory dermatos is 333144601 Completed 202012/20/2024 eczema Not Available [facility] 5 09:42:55 Bronchit is 58811786 Completed 202012/20/2024 Not Available [facility] 5 09:42:56 Acute exacerba tion of chronic obstruct sophie pulmonar y disease 839685420 Completed 202112/20/2024 Not Available [facility] 5 09:42:03 Muscle weakness 92507028 Completed 202112/20/2024 Not Available [facility] 5 09:42:06 Intersti tial lung disease 245875165 Completed 202112/20/2024 Not Available [facility] 5 09:42:11 Metaboli c encephal opathy 13314942 Completed 202112/20/2024 Not Available [facility] 5 09:42:14 Dyspnea 109168737 Completed 202112/20/2024 Not Available [facility] 5 09:42:14 Abnormal posture 31404498 Completed 202112/20/2024 Not Available [facility] 5 09:42:41 Abnormal posture 52455057 Completed 202112/20/2024 Not Available [facility] 5 09:42:42 Constipa tion 75271779 Completed 202112/20/2024 Not Available [facility] 5 09:42:40 Orophary ngeal dysphagi a 49046644 Completed 202112/20/2024 Not Available [facility] 5 09:42:13 Difficul ty walking 070021642 Completed 202212/20/2024 Not Available [facility] 5 09:42:08 Fall Completed 202212/20/2024 Not Available [facility] 5 09:42:12 Senile cataract 78778660 Completed 202212/23/2024 BLAS GONZÁLES [address] , [address], [place], [address] , [employer] [employer] [facility] 5 13:43:54 Chronic obstruct sophie pulmonar y disease 29169858 Completed 202212/20/2024 BLAS GONZÁLES [address] , [address], [place], [address] , [employer] 5 13:32:43 Disorder of body system 428417457 Completed 202212/20/2024 Not Available [facility] 5 09:42:39 Chronic obstruct sopihe pulmonar y disease 19336783 Active 2022 BLAS GONZÁLES [address] , [address], [place], [address] , [employer] 5 13:32:43 Chronic hypoxemi c respirat ory failure 154306053 Completed 202212/20/2024 Not Available [facility] 5 09:42:36 Gastroes ophageal reflux disease without esophagi tis 611034458 Completed 202212/23/2024 BLAS GONZÁLES [address], [address], [place], [address] , [employer] 5 13:43:54 Pain in left foot 81942227142 9107 Completed 202212/20/2024 Not Available [facility] 09:42:34 Essentia l hyperten lisa 57604965 Completed 202212/23/2024 BLAS GONZÁLES [address], [address], [place], [address] , [facility] 13:43:54 Osteopor osis 24451235 Completed 202212/20/2024 Not Available [facility] 5 09:42:52 Localize d, primary osteoart hritis of the ankle and/or foot 045299726 Completed 202212/20/2024 Not Available [facility] 09:42:33 Pleuriti c pain 8010020 Completed 202212/20/2024 Not Available [facility] 5 09:42:32 Fracture of multiple ribs 4217196 Completed 202312/20/2024 Not Available [facility] 5 09:42:01 Fall Completed 202312/20/2024 Not Available [facility] 5 09:42:29 Acute on chronic hypoxemi c respirat ory failure 51174023946 574746 Completed 202312/20/2024 Not Available [facility] 5 09:42:29 Syncope and collapse 151904247 Completed 202312/20/2024 Not Available [facility] 5 09:42:30 Difficul ty walking 574070182 Completed 202312/20/2024 Not Available [facility] 5 09:42:31 Acute exacerba tion of chronic obstruct sophie pulmonar y disease 066709134 Completed 202312/20/2024 Not Available [facility] 5 09:42:00 Acute on chronic hypercap juan respirat ory failure 45449390475 06 Completed 202312/20/2024 Not Available [facility] 5 09:42:03 Acute on chronic hypoxemi c respirat ory failure 77092994647 963549 Completed 202312/20/2024 Not Available [facility] 5 09:42:06 Acute pulmonar y edema 86839645 Completed 202312/20/2024 Not Available [facility] 5 09:42:08 Congesti ve heart failure 20647277 Completed 202312/20/2024 Not Available [facility] 09:42:10 Anxiety disorder 267780912 Active 2023 Not Available [facility] 5 09:42:22 Inflamma tory dermatos is 496900269 Completed 202312/20/2024 eczema Not Available [facility] 5 09:42:23 Unsteady when standing 960214046 Completed 202312/20/2024 Not Available [facility] 5 09:42:24 Muscle weakness 44190248 Completed 202312/20/2024 Not Available [facility] 5 09:42:25 Dyspnea 866229464 Completed 202312/20/2024 Not Available [facility] 5 09:42:25 Difficul ty walking 167488225 Completed 202312/20/2024 Not Available [facility] 5 09:42:26 Somatic syndrome absent 995104313 Completed 202312/23/2024 BLAS GONZÁLES [address], [address], [place], [address] , [facility] 5 13:43:54 Pulmonar y emphysem a 49035958 Completed 202312/23/2024 JOLEEN BISHOP, BLAS [address], [address], [place], [address] , [facility] 5 13:43:54 Need for personal care assistan ce 70447249410 958237 Completed 202312/20/2024 Not Available [facility] 5 09:42:11 Acidosis 80361804 Completed 202312/20/2024 Not Available [facility] 5 09:42:02 Congesti ve heart failure 10724837 Completed 202312/20/2024 Not Available [facility] 5 09:42:04 Chronic hypercap juan respirat ory failure 361968825 Completed 202312/20/2024 Not Available [facility] 5 09:42:43 Pneumoni a 308433505 Completed 202312/20/2024 Not Available [facility] 5 09:42:09 Muscle weakness 27413054 Completed 202312/20/2024 Not Available [facility] 5 09:42:16 Difficul ty walking 958639512 Completed 202312/20/2024 Not Available [facility] 5 09:42:17 Chronic cor pulmonal e 52729280 Completed 202312/20/2024 Not Available [facility] 5 09:42:17 Atopic dermatit is 83412559 Completed 202312/20/2024 Not Available [facility] 5 09:42:18 Acute exacerba tion of chronic obstruct sophie pulmonar y disease 625991890 Completed 202312/20/2024 Not Available [facility] 5 09:42:19 Congesti ve heart failure 52535815 Active 2023 Not Available [facility] 5 09:42:19 Paroxysm al atrial fibrilla tion 063174540 Active 2023 Not Available [facility] 5 09:42:20 Major depressi on, single episode 32777930 Completed 202312/20/2024 Not Available [facility] 5 09:42:45 Post-tra umatic stress disorder 58497902 Active 2023 Not Available [facility] 5 09:42:20 Dependen ce on enabling machine or device 796485509 Completed 202312/23/2024 IVAP BLAS GONZÁLES [address], [address], [place], [address] , [employer] [employer] 5 13:43:54 Dependen ce on suppleme ntal oxygen 09198339154 7 Completed 202312/20/2024 Not Available [facility] 5 09:42:37 Chronic obstruct sophie pulmonar y disease 56299129 Completed 202312/20/2024 Not Available [facility] 5 10:29:12 Acute on chronic hypoxemi c respirat ory failure 02615666941 225902 Completed 202412/20/2024 Not Available [facility] 5 09:41:58 Anemia 777889015 Active 2024 Not Available [facility] 5 09:42:15 Epilepsy 47875622 Completed 202412/23/2024 BLAS GONZÁLES [address], [address], [place], [address] , [facility] 5 13:43:54 Seizure 40248103 Active 2024 BLAS GONZÁLES [address], [address], [place], [address] , [facility] 5 13:33:33 Lung mass 489273078 Active 2024 JOLEEN BISHOP [employer], [address], [place], [address] , [facility] 5 14:00:34 Bipolar disorder 73288495 Active [address], [address], [place], [address] , [facility] 5 14:04:18 Gastroes ophageal reflux disease 996294946 Active [address], [address], [place], [address] , [facility] 5 14:16:13 Problem Notes None recorded. Medical Equipment None Reported. Allergies Allergen ID Allergen Name Allergen Category Reaction Reaction Severity Criticality Documentation Date Start Date Code Code System Note Provider Name and Address Organization Details Recorded Time 161 Haldol medicatio n Not available Not available Not available 09/01/2015 01232 9 RxNorm Mellisa Georges [address], [address], [place], [address], [employer] [employer] 5 10:07:26 162 codeine medicatio n Not available Not available Not available 09/01/20152021 2670 RxNorm Restl ess/R jai Not Available [facility] 09:42:59 163 Substance with sulfonami de structure and antibacte rial mechanism of action (substanc e) medicatio n Not available Not available Not available 09/01/2015 78616 8003 SNOMED Mellisa Georges [address], [address], [place], [address], [facility] 5 10:07:26 39097 haloperid ol medicatio n Not available Not available Not available 12/20/20242021 5093 RxNorm Palpa tions Not Available [facility] 5 09:42:59 06266 fluoxetin e medicatio n Not available Not available Not available 12/20/20242023 4493 RxNorm Not Available [facility] 09:42:59 Medications Name Sig Start Date Stop Date [...] temperature Heart rate Respiratory rate Oxygen saturation Systolic And Diastolic Provider Name and Address Organization Details Last Updated DateTime 5 99 [degF] 65 /min 16 /min 97 % 103/52 mm[Hg] BLAS GONZÁLES [address], [address], [place], [address], [place] [facility] 5 14:47:16 Social History Question Answer Notes LastModified by Organizat ion Details LastModified Time Tobacco Smoking Status Current Every Day Smoker Not Available [employer] 09/23/2020 03:13:02 How Many Years Have You Smoked Tobacco? 50 [id number] Information not available 09/23/2020 Sex: Unknown Functional [...] Diagnosis SNOMED-CT Code Diagnosis ICD10 Code Diagnosis IMO Codes Diagnosis Note 363 BLAS Rollins [facility] on [address] [place] [address] 09/01/2015 10:08:10 11/04/2015 03:49:10 Acute exacerbation of chronic obstructive pulmonary disease 999421454 J44.1 pt will continue her nebs treatments , Spiriva, prednisone taper, theodur, advair. continue on bipap, start PT/OT Gastroesop hageal reflux disease 558788095 K21.9 continue prilosec Bipolar disorder 9928190 4 F31.9 as pt requested we will increase abilify to 15 mg qd from 10 mg, continue lamictal as ordered which is not a change from [facility]. she can also see NE[facility] for this diagnosis. Insomnia 960446148 G47.0 0 pt has been on trazodone in the past, not now, will try remeron Tachycardia 8667674 R00. 0 pt was started on atenolol for elevated heart rate. is normal rate now. continue to monitor. 450 Mohsen Dos Santos MD Main Office [address] [facility], [address] [place] [address] 09/02/2015 17:39:53 10/09/2015 03:48:09 Acute exacerbation of chronic obstructive pulmonary disease 314295540 J44.1 acute on chronic, improving. Unclear why on all her inhalers while she is on oral prednisone and DuoNeb. We will hold all her inhalers until she has stopped her DuoNeb updrafts and her steroids have been tapered off. Tachycardia 2082174 R00. 0 responding to atenolol. Patient feels much improved Bipolar disorder 0405190 4 F31.9 no change her current medication s Chronic ob structive pulmonary disease 85333968 J44.9 chronic history, resume baseline meds once stable [id number] JOLEEN BISHOP, BLAS [place] [address] [place] [address] 12/17/2024 13:30:48 12/25/2024 16:13:18 Chronic obstructive pulmonary disease 93178743 J44.9 sob not r/t exacerbati onbaseline on supplement al O2 at 3 literscont on albuterol, breo neb tx, prednisone ,per discharge summary voriconazo le was mention in med list, unable to verify if she was started on this by pulmonolog y.f/u with pulmonolog ymonitor resp status.RT eval and tx prncont biPAP at hs Congestive heart failure 11057203 I50.9 cont on Lasix 40mg , kcl 10 megcont on metoprolol monitor weight, resp, edema Paroxysmal atrial fibrillation 879180637 I48.0 cont on eliquis , metoprolol monitor for unexplaine d bruising bleeding Seizure 49899768 R56.9 continue Lamictal 200 mg qd and 300 mg at nightmonit or for activityfo llow labs Anemia 112009419 D64.9 symptomati chgb 8.4GI consulted - recommende d to f/u with GI outpatient started on ferrous sulfate dailycont vit b, vit Dfollow labs Lung mass 241227068 R91. 8 11/02/24 ct scan showed small area of consolidat sophie hypodensit y in the left upper lobe slightly increased compared to 11/24/2023 .need to f/u to r/o malignancy . Depressive disorder 7978 9007 F32.A cont on Vilazodone 40 mgcontinue on mirtazapin ehx of suicidal ideat b ion, monitor moods and behavioral changes Bipolar disorder 3629120 4 F31.9 cont on abilify, theophylli ne Gastroesop hageal reflux disease 444412652 K21.9 cont on protonixmo nitor for GI upsetsx if bleeding Osteoporosis 91290333 M8 1.0 cont. on alendronat e, vit D, omega 3 , calcium Allergic rhinitis 084957 04 J30.9 cont fluticason e and mucinex Constipation 01959452 K5 9.00 cont on miralax, senna, lactulose Asthenia 22186705 R53.1 02 dependent, dyspnea with exertionPT /OT eval and treat [id number] FARHAD DAILEY NP-C [facility] [address] [address] 12/25/2024 12:54:10 12/27/2024 14:09:06 Anemia 254108342 D64.9 symptomati chgb 8.4GI consulted - recommende d to f/u with GI outpatient started on ferrous sulfate dailycont vit b, vit Dfollow labs outptf/up with pcp Chronic ob structive pulmonary disease 80203529 J44.9 sob not r/t exacerbati onbaseline on supplement al O2 at 3 literscont on albuterol, breo neb tx, prednisone ,per discharge summary voricontashi mesa was mention in med list, unable to verify if she was started on this by pulmonolog y.f/u with pulmonolog ycont biPAP at hs Congestive heart failure 10449002 I50.9 cont on Lasix 40mg , kcl 10 megcont on metoprolol monitor weight, resp, edema at homef/up with pcp Paroxysmal atrial fibrillation 729168549 I48.0 cont on eliquis , metoprolol monitor bleeding at homef/up with pcp Seizure 30030584 R56.9 continue Lamictal 200 mg qd and 300 mg at nightmonit or for activity at homef/up with pcp Lung mass 601233331 R91. 8 11/02/24 ct scan showed small area of consolidat sophie hypodensit y in the left upper lobe slightly increased compared to 11/24/2023 .need to f/u to r/o malignancy outptf/up with pcp Depressive disorder 3548 9007 F32.A cont on Vilazodone 40 mgcontinue on mirtazapin ef/up with pcp Bipolar disorder 1033447 4 F31.9 cont on abilify, theophylli mars/up with pcp Gastroesop hageal reflux disease 189590275 K21.9 cont on protonixmo nitor for GI upset outptf/up with pcp Osteoporosis 96813488 M8 1.0 cont. on alendronat e, vit D, omega 3 , calciumf/u p with pcp Allergic rhinitis 791966 04 J30.9 cont fluticason e and mucinexf/u p with pcp Constipation 92030308 K5 9.00 cont on miralax, senna, lactulosef /up with pcp Asthenia 54213853 R53.1 02 dependent, dyspnea with exertionco mpleted PT/OT eval and treatf/up with pcp Health Concerns Section Related Observation LastModified by Organization Detai ls LastModified Time None Recorded Concern Status LastModified by Organization Details LastModified Time None Recorded Advance Directives Directive None Recorded Payers Insurance Date Sequence Insurance Name Policy Number Policy Garcia Covered Member ID Garcia Member ID Guarantor Name 11/14/2024 1 [place] [facility] Lluvia Cartagena [id number] Lluvia Cartagena 12/17/2024 2 [place] [facility] Lluvia Cartagena [id number] Lluvia Cartagena 12/25/2024 1 [place] B[place] [facility] [employer] Lluvia Cartagena [id number] Lluvia Cartagena Notes Date Note Type Note Provider Name and Address Organization Details Recorded Time 09/01/2015 text/html HPI patient admitted to [facility] for COPD exacerbation, acute on chronic resp failure, started on Bipap and atenolol for tachycardia AIDA RollinsP [address], [address], [place], [address], [facility] 09/01/2015 10:36:55 09/02/2015 text/html HPI 60-year-old female admitted for respiratory infection with negative chest x-ray, acute exacerbation of COPD, but he by hypoxemia and hypercapnia. She required ICU stay for administration of BiPAP. Chest x-ray did not show acute infiltrate. She was treated however with steroids, updraft and antibiotics. History of bipolar disorder as well is active smoker Mohsen Dos Santos MD [address], [address], [place], [address], [employer] [facility] 09/02/2015 17:45:59 12/17/2024 text/html ROS as noted in the HPI This is a 69-year-old female patient seen for Transition of care and re-admission. PMH of chronic hypoxic respiratory failure secondary to COPD, chronic CO2 retention, Afib, anxiety/depression, PTSD,obesity, osteoporosis, lung mass,PNA. She was sent to [facility] for evaluation of worsening shortness of breath; medical workup appeared to be at her baseline with the exception of anemia, baseline she usually around 10, labs showed hgb 8.4. GI was consulted and due to no concerns for a GI bleed, patient is recommended to follow up outpatient for EGD/colonoscopy. Per nursing she has been at her baseline since returning [place], there are no acute concerns. BLAS GONZÁLES [address] [place] [address], [address], [place], [address], [employer] 12/23/2024 16:38:36 12/25/2024 text/html ROS as noted in the HPI This is a 69-year-old female patient seen for discharge summary. PMH of chronic hypoxic respiratory failure secondary to COPD, chronic CO2 retention, Afib, anxiety/depression, PTSD, obesity, osteoporosis, lung mass,PNA. She was sent to [facility] for evaluation of worsening shortness of breath; [...] plan on finding her a pcp in [place] where they live. Patient is stable for sd home with meds and services. GÉNESIS FERNÁNDEZ [address], [address], [place], [address], [employer] [facility] 12/26/2024 07:14:05 OBGyn Episode No OBEpisode recorded.
--- OUTSIDE RECORDS SUMMARY | 2025-10-23 17:25 | XMS_ITS | Clinical Summary ---
Author Organization [facility] Address [address] [place] [address] Care Team Providers Care Weekday Babysitter Name Role Phone Debra Ji MD Primary Care Provider [phone] Allergies Active Allergy Reactions Criticality Noted Date [...] 0 Active zoster vaccine live, PF, (ZOSTAVAX) 40409 UNT/0.65ML injection Inject 0.65 mL under the [...] age to complete this topic Care Teams Weekday Babysitter Relationship Specialty Start Date End Date Debra Ji MD PCP - General Internal Medicine 06/27/17
--- NOTE | 2025-10-23 19:09 | PC.NURSE ---
delay in medication administration d/t medication not being readily available in pyxis. medication delivered/administered per provider order.
[2025-10-23] MEDS: guaiFENesin LA 600 MG TAB.ER.12H PO (21:06)
[2025-10-23] MEDS: Theophylline Anhydrous ER 300 MG TAB.ER.12H PO (21:06)
[2025-10-23] MEDS: Flu Vacc TS2025-26(6mo up)/PF 0.5 ML SYRINGE IM (21:11)
[2025-10-23] MEDS: Calcium Oyster Shell Elemental 500 MG TABLET PO (21:27)
[2025-10-23] MEDS: 0.9 % Sodium Chloride Flush 3 ML SYRINGE IVFLUSH (21:40)
[2025-10-24] VITALS (12 sets, daily range): BP systolic 109–129; BP diastolic 58–63; PULSE 69–85; RESP 16–20; TEMP 36–37; O2SAT 92–98
[2025-10-24 07:16] LABS: Hematocrit 30.7 % (37.0-47.0); Hemoglobin 8.6 g/dl (12.0-16.0); Mean Corpuscular HGB Conc 28.0 g/dl (31.0-35.0); Mean Corpuscular Hemoglobin 27.0 pg (27.0-33.0); Mean Corpuscular Volume 96.5 fL (80.0-98.0); NRBC Abs Auto 0.000 X10*3/uL (0.0-0.012); NRBC Pct Auto 0.0 /100WBC (0.0-0.2); Platelet Count 411 X10*3/uL (160-400); Red Blood Count 3.18 X10*6/uL (4.20-5.50); White Blood Count 6.1 X10*3/uL (4.8-10.8)
--- NOTE | 2025-10-24 07:22 | P.PNIM_ITS ---
Subjective Subjective Date of Service: 10/24/25 Interval History: Patient in good spirits She reports that recent PET scan shows that her lung cancer shrunk status post radiation and chemo although she does not qualify for either in the future per her oncologist She reports that she would continue to be full code which we respect and MOLST form is in place accordingly We will continue steroids which will likely be what she will go back to [facility] on Continue BiPAP p.r.n. Guarded prognosis Review of Systems Review of Systems: Yes all other systems are reviewed and are negative Physical Exam 2 Exam: Exam: General: AOx3, frail-appearing, pulmonary cachexia, hoarse voice Resp: Rhonchorous breathing, requiring 5 L O2, accessory muscle use CVS: S1, S2, RRR GI: +BS, NT, no distention Vital Signs: Vital Signs: Last Vital Signs Temp 97.3 F 10/24/25 04:00 Pulse 80 10/24/25 04:00 Resp 20 10/24/25 05:11 BP 111/63 10/24/25 04:00 Pulse Ox 92 10/24/25 04:00 O2 Del Method Room Air 10/24/25 04:00 O2 Flow Rate 4 10/23/25 19:18 Oxygen Flow Rate 4 10/23/25 13:51 BMI result Body Mass Index 33.9 Objective Data Active Medications Acetaminophen (Acetaminophen 325 Mg Tablet) 650 mg PO Q4H PRN PRN Reason: Fever/Pain Acetazolamide (Acetazolamide 250 Mg Tablet) 250 mg PO MOWEFR [facility] Last Admin: 10/23/25 19:06 Dose: 250 mg Documented By: GABY Albuterol Sulfate (Albuterol Sulfate (0.083%) 2.5 Mg/3 Ml Vial.Neb) 2.5 mg INHALE RQ4H WHILE AWAKE [facility] Last Admin: 10/23/25 18:35 Dose: 2.5 mg Documented By: RENNY Apixaban (Apixaban 5 Mg Tablet) 5 mg PO BID [facility] Last Admin: 10/23/25 21:06 Dose: 5 mg Documented By: ROSALES Aripiprazole (Aripiprazole 10 Mg Tablet) 10 mg PO DAILY [facility] Aspirin (Aspirin 81 Mg Tab.Chew) 81 mg PO DAILY [facility] Atorvastatin Calcium (Atorvastatin Calcium 40 Mg Tablet) 40 mg PO DAILY [facility] Bisacodyl (Bisacodyl 10 Mg Supp.Rect) 10 mg [place] DAILY PRN PRN Reason: Constipation Calcium Carbonate (Calcium Carbonate 750 Mg Tab.Chew) 750 mg PO Q4H PRN PRN Reason: Heartburn Calcium Carbonate (Calcium Oyster Shell Elemental 500 Mg Tablet) 500 mg PO BID [facility] Last Admin: 10/23/25 21:27 Dose: 500 mg Documented By: ROSALES Docusate Sodium (Docusate Sodium 100 Mg Capsule) 100 mg PO DAILY PRN PRN Reason: Constipation Ferrous Sulfate (Ferrous Sulfate 324 Mg Tablet.Dr) 324 mg PO DAILY [facility] Furosemide (Furosemide 40 Mg Tablet) 40 mg PO DAILY [facility]; Protocol Gabapentin (Gabapentin 100 Mg Capsule) 100 mg PO BID [facility] Last Admin: 10/23/25 21:06 Dose: 100 mg Documented By: ROSALES Guaifenesin (Guaifenesin La 600 Mg Tab.Er.12h) 600 mg PO BID [facility] Last Admin: 10/23/25 21:06 Dose: 600 mg Documented By: ROSALES Guaifenesin (Guaifenesin La 600 Mg Tab.Er.12h) 1,200 mg PO BID PRN PRN Reason: Congestion Doxycycline Hyclate 100 mg/ (Sodium Chloride) 250 mls @ 166.67 mls/hr IV Q12H [facility] Last Infusion: 10/24/25 05:19 Dose: Infused Documented By: ROSALES Lactulose (Lactulose 20 Gm/30 Ml Solution) 10 gm PO DAILY PRN PRN Reason: Constipation Lamotrigine (Lamotrigine 100 Mg Tablet) 200 mg PO BID [facility] Last Admin: 10/23/25 21:06 Dose: 200 mg Documented By: ROSALES Loratadine (Loratadine 10 Mg Tablet) 10 mg PO DAILY [facility] Magnesium Hydroxide (Milk Of Magnesia 30 Ml Oral.Susp) 30 ml PO DAILY PRN PRN Reason: Constipation Melatonin (Melatonin 3 Mg Tablet) 6 mg PO BEDTIME PRN PRN Reason: Insomnia Methylprednisolone Sodium Succinate (Methylprednisolone Sod Succ 40 Mg/Ml Vial) 40 mg IVPUSH Q12H [facility] Last Admin: 10/23/25 21:11 Dose: 40 mg Documented By: ROSALES Metoprolol Succinate (Metoprolol Succinate Er 100 Mg Tab.Er.24h) 100 mg PO DAILY [facility]; Protocol Mirtazapine (Mirtazapine 7.5 Mg Tablet) 7.5 mg PO BEDTIME [facility] Last Admin: 10/23/25 21:06 Dose: 7.5 mg Documented By: ROSALES Montelukast Sodium (Montelukast Sodium 10 Mg Tablet) 10 mg PO BEDTIME [facility] Last Admin: 10/23/25 21:06 Dose: 10 mg Documented By: ROSALES Omeprazole (Omeprazole 20 Mg Capsule.Dr) 20 mg PO DAILY@0630 [facility] Last Admin: 10/24/25 05:49 Dose: 20 mg Documented By: ROSALES Ondansetron HCl (Ondansetron Hcl 4 Mg/2 Ml Vial) 4 mg IVPUSH Q8H PRN PRN Reason: Nausea and Vomiting Senna (Sennosides 8.6 Mg Tablet) 8.6 mg PO BEDTIME [facility] Last Admin: 10/23/25 21:06 Dose: 8.6 mg Documented By: ROSALES Sodium Chloride (0.9 % Sodium Chloride Flush 3 Ml Syringe) 3 ml IVFLUSH QSHIFT [facility] Last Admin: 10/23/25 21:40 Dose: 3 ml Documented By: ROSALES Theophylline (Theophylline Anhydrous Er 300 Mg Tab.Er.12h) 300 mg PO BID [facility] Last Admin: 10/23/25 21:06 Dose: 300 mg Documented By: ROSALES Trazodone HCl (Trazodone Hcl 50 Mg Tablet) 12.5 mg PO BEDTIME [facility] Last Admin: 10/23/25 21:06 Dose: 12.5 mg Documented By: ROSALES Vilazodone HCl (Vilazodone Hcl 40 Mg Tablet) 40 mg PO DAILY [facility] Vitamin D (Cholecalciferol (Vitamin D3) 25 Mcg Tablet) 25 mcg PO DAILY [facility] Labs 10/24/25 05:59 10/24/25 05:59 Labs: Laboratory Results - last 24 hr 10/23/25 10/23/25 10/24/25 14:24 14:28 05:59 MCV 97.1 96.5 MCH 27.3 27.0 MCHC 28.1 L 28.0 L RDW 15.0 14.6 Plt Count 390 D 411 H MPV 8.8 L 9.4 Immature Gran % (Auto) 1.0 H Neut % (Auto) 91.6 H Lymph % (Auto) 3.4 L [place] % (Auto) 2.9 Eos % (Auto) 0.6 Baso % (Auto) 0.5 Lymph # (Auto) 0.3 L [place] # (Auto) 0.3 Eos # (Auto) 0.1 Baso # (Auto) 0.1 Abs Immat Gran (auto) 0.10 H Absolute Neuts (auto) 9.1 H Absolute Nucleated RBC 0.000 0.000 Nucleated RBC % (auto) 0.0 0.0 Smear Tech's Comments VERIFIED PT 16.7 H INR 1.4 H APTT 35.0 H VBG pH 7.42 VBG pCO2 79 VBG pO2 125 VBG HCO3 51 H VBG O2 Saturation 99.0 VBG Base Excess 22.7 Anion Gap 8 L Estim Creat Clear Calc 58.1 Estimated GFR 58 Random Glucose 156 H Calcium 9.3 Magnesium 1.8 Total Bilirubin 0.2 AST 22 ALT 11 Alkaline Phosphatase 68 Troponin I High Sens 5.5 NT-Pro-B Natriuret Pep 173.0 Total Protein 6.6 Albumin 4.3 Influenza Type A (PCR) NEGATIVE Influenza Type B (PCR) NEGATIVE RSV RNA Qual (PCR) NEGATIVE SARS-CoV-2 RNA (RT-PCR) NEGATIVE Assessment and Plan (1) COPD exacerbation: Status: Acute Plan 70-year-old female with a past medical history of HTN, HLD, COPD, chronic respiratory failure on 6 L of home oxygen, cor pulmonale, paroxysmal AFib on Eliquis, RITA on BiPAP at night, lung cancer s/p XRT now on chemotherapy; presented to the hospital on 08/09/2025 with acute onset SOB/FERNANDEZ and was noted to be acute hypoxic respiratory failure,chronic hypercarbic respiratory failure requiring BiPAP, was noted to be in exacerbation of COPD as a gradual progression of her end-stage COPD now on 6 L O2 at baseline Acute exacerbation of chronic hypercarbic respiratory failure on 6 L home O2, secondary to COPD exacerbation-improving with steroids Continue IV steroids, we will wean to p.o. steroids tomorrow with prolonged taper which he seems to have responded to during prior admission Nebulizers and BiPAP scheduled and p.r.n. VBG suggestive of acute hypercarbic hypercapnic respiratory distress her baseline, Diamox as needed Known Lung cancer status post chemo and radiation-not a candidate for either per Oncology per patient Known RITA on BiPAP nocturnally -unable to tolerate, but indicated Known Severe emphysema-chronic Known Multinodular pulmonary defects-likely mets outpatient palm follow-up Regarding lung cancer-patient reports she had follow-up outpatient a week or 2 ago and she used to the her PET scan showed resolution and although she is not a candidate for further chemo radiation as tolerate Q in her baseline morbidities Paroxysmal AFib on Eliquis Continue Eliquis CAD-continue home meds HTN Continue home management Mood disorders Continue home meds Osteoporosis Continue home meds . DVT prophylaxis with home Eliquis Guarded prognosis, goals of care discussion had with the patient-full code Disposition: Patient needs IV steroids for her COPD exacerbation This note is constructed using voice recognition software. While every effort has been made to ensure accuracy, vineyardist errors may have been included. Quality Stroke Does the patient have a stroke diagnosis?: No VTE Prior VTE?: No VTE Risk Level:: Medical - moderate - high VTE Device Contraindication: Treatment Not Indicated VTE Drug Contraindication: N/A - Med Ordered
[2025-10-24 07:41] LABS: Blood Urea Nitrogen 14 mg/dL (9-16); Calcium 9.4 mg/dL (8.4-10.2); Creatinine Clr Calc Pharmacy 76.6; Estimated Glomerular Filt Rate > 60
[2025-10-24] MEDS: Albuterol Sulfate (0.083%) 2.5 MG/3 ML VIAL.NEB INHALE ×4 (07:44→20:15)
[2025-10-24 07:59] LABS: Anion Gap 11 (12-20); Carbon Dioxide 39 mmol/L (22-29); Chloride 98 mmol/L (96-108); Potassium 4.2 mmol/L (3.3-5.1); Sodium 144 mmol/L (135-145)
[2025-10-24] MEDS: Metoprolol Succinate ER 100 MG TAB.ER.24H PO (08:40)
[2025-10-24] MEDS: 0.9 % Sodium Chloride Flush 3 ML SYRINGE IVFLUSH ×3 (08:40→21:23)
[2025-10-24] MEDS: Ferrous Sulfate 324 MG TABLET.DR PO (08:40)
[2025-10-24] MEDS: guaiFENesin LA 600 MG TAB.ER.12H PO ×2 (08:40→21:07)
[2025-10-24] MEDS: Theophylline Anhydrous ER 300 MG TAB.ER.12H PO ×2 (08:40→21:07)
[2025-10-24] MEDS: Calcium Oyster Shell Elemental 500 MG TABLET PO ×2 (08:40→21:07)
[2025-10-24 08:42] LABS: Chlamydia pneumoniae PCR Not Detected (Not Detect.); Coronavirus 229E PCR Not Detected (Not Detect.); Coronavirus HKU1 PCR Not Detected (Not Detect.); Coronavirus NL63 PCR Not Detected (Not Detect.); Coronavirus OC43 PCR Not Detected (Not Detect.); RSV PCR Not Detected (Not Detect.); Rhino/Enterovirus PCR Not Detected (Not Detect.)
[2025-10-24 08:46] LABS: Influenza A H1 PCR Not Detected (Not Detect.); Influenza A H1-2009 PCR Not Detected (Not Detect.); Influenza A H3 PCR Not Detected (Not Detect.); SARS-CoV-2 PCR Not Detected (Not Detect.)
[2025-10-24 09:09] LABS: VBG HCO3 42 mmol/L (22-26); VBG O2 % Saturation < 30.0 %
[2025-10-24 09:26] LABS: Venous Blood Gas Refer to POC result
[2025-10-24 10:59] LABS: MRSA Nasal PCR NEGATIVE (Negative); SA Nasal PCR POSITIVE (Negative)
--- NOTE | 2025-10-24 11:20 | PM.CNPUL ---
History of Present Illness History of Present Illness Consult date: 10/24/25 Chief complaint: COPD Narrative: 70-year-old lady with underlying advanced COPD on supplemental oxygen 3-6 L, diastolic dysfunction, AFib, RITA, cor pulmonale, lung cancer status post XRT, follows with Dr. Acharya admitted on 10/23/2025 with components of her hypoxemia COPD exacerbation. Patient was treated with empiric systemic glucocorticoids and nebulized bronchodilators with improvement essentially to baseline. Her CT angio chest was negative for pulmonary emboli. Review of Systems Constitutional: Constitutional: Denies daytime sleepiness, Denies excessive sweating, Denies fatigue, Denies fever(s), Denies lethargy, Denies malaise, Denies night sweats, Denies snoring and Denies weight loss Eyes: Eyes: Denies blurry vision and Denies itchy eyes ENT: Denies nasal congestion, Denies post nasal drip, Denies sinus pain, Denies sinus pressure and Denies other ( Thrush) Cardiovascular: Cardiovascular: Denies chest pain, Denies pedal edema, Denies dyspnea, Denies orthopnea and Denies paroxysmal nocturnal dyspnea Respiratory: Respiratory: Denies cough, Denies hemoptysis, Denies excessive phlegm production, Denies dyspnea, Denies snoring and Reports wheezing Gastrointestinal: Gastrointestinal: Denies abdominal pain and Denies heartburn Musculoskeletal: Musculoskeletal: Denies myalgias, Denies arthralgias and Denies joint swelling Integumentary/Breasts: Skin/Breast: Denies rash Neurologic: Denies memory loss and Denies seizure-like activity Psychiatric: Psychiatric: Denies abnormal sleep pattern, Denies anxiety and Denies memory loss Endocrine: Endocrine: Denies excessive sweating, Denies fatigue and Denies heat intolerance Hematologic/Lymphatic: Hematologic/Lymphatic: Denies easy bruising Allergic/Immunologic: Allergic/Immunologic: Denies itchy eyes, Denies seasonal rhinorrhea and Reports wheezing PMFSH Past Medical History Medical History Lung cancer Pulmonary nodule 1 cm or greater in diameter Lung mass RITA (obstructive sleep apnea) Cor pulmonale Rib fractures Pulmonary nodule Tubular adenoma of colon (~2006) Osteopenia (~2012) Bronchopneumonia Chest pain Chronic respiratory alkalosis ILD (interstitial lung disease) CO2 retention Acute on chronic respiratory failure with hypoxia and hypercapnia Bipolar depression Eczema Limb swelling Insomnia Bronchitis Vasomotor rhinitis COPD (chronic obstructive pulmonary disease) Chronic respiratory failure Fall Acute metabolic encephalopathy Acute and chronic respiratory failure with hypercapnia Family History Family History Other Hypertension Surgical History Surgical History History of carpal tunnel surgery (~2000) History of ventral hernia repair (~2003) History of left inguinal hernia repair (~1995) History of tracheostomy (~2016) History of cataract surgery (~2018) History of colonoscopy Social History Social History Household Members: Other Household Members Other:: Daughter, son-in-law, grandchildren Housing: [facility] Other:: [facility] Are you a primary college and career counselor to a significant other at home: No Do you presently have visiting nurse or other home services: No Alcohol intake: former Patient Tobacco Use Status: Former Tobacco user Tobacco use type: Cigarette Years Smoked: 20+ years Smoked in Last 30 Days: No e-Cigarette/Vaping Use: Never Used Second Hand Smoke Exposure: No Use of substances other than those prescribed or required for medical reasons: No Currently Displaying Signs/Symptoms of Drug Intoxication Withdrawal: No Have you been hit, kicked, punched, or otherwise hurt by someone within the past year? If so, by whom?: No Do you feel safe in your current relationship?: No Current Relationship Is there a partner from a previous relationship who is making you feel unsafe now?: No Are you made to feel afraid or neglected: No Advance Directives: Yes Advance Directives on File: Yes Advance Directives Date on File: 11/30/21 Do you have a plan to hurt others: No Plan Recently lost weight without trying: No How much weight loss: Not applicable Eating poorly because of decreased appetite: No Nutrition screen score: 0 Nutrition Risks: No Nutritional Risk Patient : No : No Poor oral hygiene: No service: No Current occupational status: disabled Meds Allergies Allergy/AdvReac Type Severity Reaction Status Date / Time fluoxetine Allergy Severe Irritable Verified 10/23/25 13:54 codeine (Codeine) Allergy Intermediate RESTLESS/RA Verified 10/23/25 13:54 SH haloperidol (Haldol) Allergy Intermediate Palpitation Verified 10/23/25 13:54 s Active Medications: Current Medications Acetaminophen (Acetaminophen 325 Mg Tablet) 650 mg PO Q4H PRN PRN Reason: Fever/Pain Acetazolamide (Acetazolamide 250 Mg Tablet) 250 mg PO MOWEFR [facility] Last Admin: 10/23/25 19:06 Dose: 250 mg Albuterol Sulfate (Albuterol Sulfate (0.083%) 2.5 Mg/3 Ml Vial.Neb) 2.5 mg INHALE RQ4H WHILE AWAKE [facility] Last Admin: 10/24/25 07:44 Dose: 2.5 mg Apixaban (Apixaban 5 Mg Tablet) 5 mg PO BID [facility] Last Admin: 10/24/25 08:40 Dose: 5 mg Aripiprazole (Aripiprazole 10 Mg Tablet) 10 mg PO DAILY [facility] Last Admin: 10/24/25 08:40 Dose: 10 mg Aspirin (Aspirin 81 Mg Tab.Chew) 81 mg PO DAILY [facility] Last Admin: 10/24/25 08:40 Dose: 81 mg Atorvastatin Calcium (Atorvastatin Calcium 40 Mg Tablet) 40 mg PO DAILY [facility] Last Admin: 10/24/25 08:40 Dose: 40 mg Bisacodyl (Bisacodyl 10 Mg Supp.Rect) 10 mg [place] DAILY PRN PRN Reason: Constipation Calcium Carbonate (Calcium Carbonate 750 Mg Tab.Chew) 750 mg PO Q4H PRN PRN Reason: Heartburn Calcium Carbonate (Calcium Oyster Shell Elemental 500 Mg Tablet) 500 mg PO BID [facility] Last Admin: 10/24/25 08:40 Dose: 500 mg Docusate Sodium (Docusate Sodium 100 Mg Capsule) 100 mg PO DAILY PRN PRN Reason: Constipation Ferrous Sulfate (Ferrous Sulfate 324 Mg Tablet.Dr) 324 mg PO DAILY [facility] Last Admin: 10/24/25 08:40 Dose: 324 mg Furosemide (Furosemide 40 Mg Tablet) 40 mg PO DAILY [facility]; Protocol Last Admin: 10/24/25 08:40 Dose: 40 mg Gabapentin (Gabapentin 100 Mg Capsule) 100 mg PO BID [facility] Last Admin: 10/24/25 08:40 Dose: 100 mg Guaifenesin (Guaifenesin La 600 Mg Tab.Er.12h) 600 mg PO BID [facility] Last Admin: 10/24/25 08:40 Dose: 600 mg Guaifenesin (Guaifenesin La 600 Mg Tab.Er.12h) 1,200 mg PO BID PRN PRN Reason: Congestion Doxycycline Hyclate 100 mg/ (Sodium Chloride) 250 mls @ 166.67 mls/hr IV Q12H [facility] Last Infusion: 10/24/25 05:19 Dose: Infused Lactulose (Lactulose 20 Gm/30 Ml Solution) 10 gm PO DAILY PRN PRN Reason: Constipation Lamotrigine (Lamotrigine 100 Mg Tablet) 200 mg PO BID [facility] Last Admin: 10/24/25 08:39 Dose: 200 mg Loratadine (Loratadine 10 Mg Tablet) 10 mg PO DAILY [facility] Last Admin: 10/24/25 08:40 Dose: 10 mg Magnesium Hydroxide (Milk Of Magnesia 30 Ml Oral.Susp) 30 ml PO DAILY PRN PRN Reason: Constipation Melatonin (Melatonin 3 Mg Tablet) 6 mg PO BEDTIME PRN PRN Reason: Insomnia Methylprednisolone Sodium Succinate (Methylprednisolone Sod Succ 40 Mg/Ml Vial) 40 mg IVPUSH Q12H [facility] Last Admin: 10/24/25 08:40 Dose: 40 mg Metoprolol Succinate (Metoprolol Succinate Er 100 Mg Tab.Er.24h) 100 mg PO DAILY [facility]; Protocol Last Admin: 10/24/25 08:40 Dose: 100 mg Mirtazapine (Mirtazapine 7.5 Mg Tablet) 7.5 mg PO BEDTIME [facility] Last Admin: 10/23/25 21:06 Dose: 7.5 mg Montelukast Sodium (Montelukast Sodium 10 Mg Tablet) 10 mg PO BEDTIME [facility] Last Admin: 10/23/25 21:06 Dose: 10 mg Omeprazole (Omeprazole 20 Mg Capsule.Dr) 20 mg PO DAILY@0630 [facility] Last Admin: 10/24/25 05:49 Dose: 20 mg Ondansetron HCl (Ondansetron Hcl 4 Mg/2 Ml Vial) 4 mg IVPUSH Q8H PRN PRN Reason: Nausea and Vomiting Senna (Sennosides 8.6 Mg Tablet) 8.6 mg PO BEDTIME [facility] Last Admin: 10/23/25 21:06 Dose: 8.6 mg Sodium Chloride (0.9 % Sodium Chloride Flush 3 Ml Syringe) 3 ml IVFLUSH QSHIFT [facility] Last Admin: 10/24/25 08:40 Dose: 3 ml Theophylline (Theophylline Anhydrous Er 300 Mg Tab.Er.12h) 300 mg PO BID [facility] Last Admin: 10/24/25 08:40 Dose: 300 mg Trazodone HCl (Trazodone Hcl 50 Mg Tablet) 12.5 mg PO BEDTIME [facility] Last Admin: 10/23/25 21:06 Dose: 12.5 mg Vilazodone HCl (Vilazodone Hcl 40 Mg Tablet) 40 mg PO DAILY [facility] Last Admin: 10/24/25 08:40 Dose: 40 mg Vitamin D (Cholecalciferol (Vitamin D3) 25 Mcg Tablet) 25 mcg PO DAILY [facility] Last Admin: 10/24/25 08:40 Dose: 25 mcg Home Medications ?Medication ?Instructions ?Recorded ?Confirmed ?Last Taken ?Type alendronate 70 mg tablet (Fosamax) 70 mg PO DOMINGUEZ 02/09/21 10/23/25 08/04/25 History mirtazapine 15 mg tablet 7.5 mg PO BEDTIME 09/10/21 10/23/25 08/06/25 History sennosides 8.6 mg tablet (Senokot) 8.6 mg PO BEDTIME 09/10/21 10/23/25 08/05/25 History Oxygen Home Use 04/15/23 10/22/24 Unknown History nebulizers 04/15/23 10/22/24 Unknown History pantoprazole 40 mg tablet,delayed 40 mg PO DAILY@0630 06/21/24 10/23/25 08/06/25 History release docusate sodium 100 mg capsule 100 mg PO DAILY PRN Constipation 07/27/24 10/23/25 08/19/24 History aripiprazole 10 mg tablet 10 mg PO DAILY 08/20/24 10/23/25 08/06/25 History mineral oil 1 appl topical Q48H PRN eczema 08/20/24 10/23/25 Unknown History omega 4-htu-rux-fish oil 1,000 mg 1 cap PO BID 08/20/24 10/23/25 08/06/25 History (120 mg-180 mg) capsule (Fish Oil) apixaban 5 mg tablet (Eliquis) 5 mg PO BID 09/26/24 10/23/25 08/06/25 History gabapentin 100 mg capsule 100 mg PO BID 01/18/25 10/23/25 08/06/25 History ferrous gluconate 324 mg (38 mg 324 mg PO DAILY 08/10/23/25 08/06/25 History iron) tablet calcium carbonate (Oyster Shell 500 mg PO BID 08/06/25 10/23/25 Unknown History Calcium) cholecalciferol (vitamin D3) 25 25 mcg PO DAILY 08/06/25 10/23/25 Unknown History mcg (1,000 unit) tablet (Vitamin D3) fluticasone furoate 200 1 ea inhalation DAILY dyspnea 08/06/25 10/23/25 08/06/25 History mcg-vilanterol 25 mcg/dose inhalation powder (Breo Ellipta) furosemide 40 mg tablet 40 mg PO DAILY 08/06/25 10/23/25 08/06/25 History lactulose 10 gram/15 mL oral 15 ml PO DAILY PRN constipation 08/06/25 10/23/25 Unknown History solution (Enulose) lamotrigine 200 mg tablet 200 mg PO BID 08/06/25 10/23/25 08/06/25 History vilazodone 40 mg tablet 40 mg PO DAILY 08/06/25 10/23/25 08/06/25 History L.acidophilus-bif.longum 15 mg (1 1 cap PO DAILY 10/23/25 10/23/25 Unknown History billion cell)capsule,delayed release (Probiotic Pearls) acetaminophen 325 mg tablet 650 mg PO Q4H PRN Fever/Pain 10/23/25 10/23/25 Unknown History acetazolamide 250 mg tablet 250 mg PO MOWEFR 10/23/25 10/23/25 Unknown History aspirin 81 mg tablet 81 mg PO DAILY 10/23/25 10/23/25 Unknown History atorvastatin 40 mg tablet 40 mg PO DAILY 10/23/25 10/23/25 Unknown History bisacodyl 10 mg rectal suppository 10 mg [place] DAILY PRN Constipation 10/23/25 10/23/25 Unknown History guaifenesin 600 mg tablet, 1,200 mg PO BID PRN Congestion 10/23/25 10/23/25 Unknown History extended release 12 hr guaifenesin 600 mg tablet, 600 mg PO BID 10/23/25 10/23/25 Unknown History extended release 12 hr loratadine 10 mg tablet (Claritin) 10 mg PO DAILY 10/23/25 10/23/25 Unknown History magnesium hydroxide 400 mg/5 mL 30 ml PO DAILY PRN Constipation 10/23/25 10/23/25 Unknown History oral suspension (Milk of Magnesia) metoprolol succinate 100 mg 100 mg PO DAILY 10/23/25 10/23/25 Unknown History tablet,extended release 24 hr prednisone 10 mg tablet 10 mg PO DAILY 10/23/25 10/23/25 Unknown History sodium phosphates 19 gram-7 118 ml [place] DAILY PRN Constipation 10/23/25 10/23/25 Unknown History gram/197 mL enema (Fleet Enema Extra) tramadol 50 mg tablet 50 mg PO Q6H PRN Pain 10/23/25 10/23/25 Unknown History trazodone 50 mg tablet 12.5 mg PO BEDTIME Sleep 10/23/25 10/23/25 Unknown History Physical Exam Vital Signs: Vital Signs: Last Vital Signs Temp 96.8 F 10/24/25 07:58 Pulse 70 10/24/25 07:58 Resp 18 10/24/25 07:58 BP 113/58 L 10/24/25 07:58 Pulse Ox 96 10/24/25 07:58 O2 Del Method Nasal Cannula 10/24/25 07:58 O2 Flow Rate 3.0 10/24/25 07:58 Oxygen Flow Rate 4 10/23/25 13:51 BMI result Body Mass Index 33.9 Const: General: no acute distress and alert Nutritional Appearance: not obese Orientation/consciousness: Other orientation findings ( oriented) HEENT: Head: Yes atraumatic Eyes: General: appearance normal, both eyes and all related structures Sclerae: sclerae normal EOM: EOMs intact bilaterally Neck: Neck: Yes supple Lymphatic: no lymphadenopathy noted Resp: Effort & Inspection: normal respiratory effort and no use of accessory muscles Auscultation: wheezes (Mild expiratory bilateral) Cardio: Rate: regular rate Rhythm: regular rhythm Heart sounds: no gallops, no murmurs and no rubs Skin: General skin exam: other ( warm) Extrem: General: No clubbing, No cyanosis and No edema Results Laboratory Findings 10/24/25 05:59 10/24/25 05:59 ABG, PT/INR, D-dimer: PT/INR, D-dimer PT 16.7 SEC (11.2-13.5) H 10/23/25 14:24 INR 1.4 (0.9-1.1) H 10/23/25 14:24 Abnormal lab findings: Abnormal Labs 10/23/25 10/23/25 10/24/25 14:24 14:28 05:59 RBC 3.11 L 3.18 L Hgb 8.5 L D 8.6 L Hct 30.2 L 30.7 L MCHC 28.1 L 28.0 L Plt Count 411 H MPV 8.8 L Immature Gran % (Auto) 1.0 H Neut % (Auto) 91.6 H Lymph % (Auto) 3.4 L Lymph # (Auto) 0.3 L Abs Immat Gran (auto) 0.10 H Absolute Neuts (auto) 9.1 H PT 16.7 H INR 1.4 H APTT 35.0 H VBG HCO3 51 H Chloride 92 L Carbon Dioxide 45 H* D 39 H Anion Gap 8 L 11 L BUN 17 H Random Glucose 156 H 119 H Nasal S. aureus Screen 10/24/25 10/24/25 08:50 09:02 RBC Hgb Hct MCHC Plt Count MPV Immature Gran % (Auto) Neut % (Auto) Lymph % (Auto) Lymph # (Auto) Abs Immat Gran (auto) Absolute Neuts (auto) PT INR APTT VBG HCO3 42 H Chloride Carbon Dioxide Anion Gap BUN Random Glucose Nasal S. aureus Screen POSITIVE A Assessment and Plan (1) Acute exacerbation of chronic obstructive pulmonary disease: Status: Acute Plan Impression: 70-year-old lady with underlying advanced COPD on 3-6 L of supplemental oxygen, RITA, cor pulmonale, diastolic dysfunction admitted with COPD exacerbation, now improved close to baseline. Recommendations: Agree with current therapeutic regimen including nebulized bronchodilators and systemic glucocorticoids. Procedures Date of Service Date of Service: 10/24/25
--- NOTE | 2025-10-24 11:50 | PC.NURSE ---
Clin Sup and carton wrapper on M/T notified that patient needs to be transferred.
--- NOTE | 2025-10-24 11:57 | MHC.CM.PN ---
PT REPORTS SHE IS NOW LTC AT [facility], SHE DISCHARGED THERE FOR STR ON 08/14/25 RETURN REFERRAL SENT TO CONFIRM PT USES A CPPA, ROLLATOR AND O2 AT BASELINE SHE BROUGHT IN A NEW HCP NAMING HER DAUGHTER, CAROLINE AND DAUGHTERS FRIEND, JENNIFER, THE AGENTS COPY IN [place]ARE[place] AND CHART SHE WANTS TO DO A NEW MOLST SHE NO LONGER WISHES TO BE DNR/DNI, MADE AWARE PCP: DOT REIS DELIVERED DCP EXPECTED TO BE RETURN TO [facility] VIA BLS
[2025-10-25 03:14] VITALS: BP 148/69; PULSE 77; RESP 18; TEMP 36.4; O2SAT 97
[2025-10-25 03:49] VITALS: PULSE 82; RESP 25; O2SAT 94
[2025-10-25 07:09] VITALS: BP 133/62; PULSE 82; RESP 16; TEMP 36.9; O2SAT 97
[2025-10-25] MEDS: Albuterol Sulfate (0.083%) 2.5 MG/3 ML VIAL.NEB INHALE ×2 (07:36→12:11)
[2025-10-25 07:38] VITALS: PULSE 82; RESP 16; O2SAT 95
[2025-10-25] MEDS: Calcium Oyster Shell Elemental 500 MG TABLET PO (08:04)
[2025-10-25] MEDS: 0.9 % Sodium Chloride Flush 3 ML SYRINGE IVFLUSH (08:04)
[2025-10-25] MEDS: Metoprolol Succinate ER 100 MG TAB.ER.24H PO (08:04)
[2025-10-25] MEDS: Ferrous Sulfate 324 MG TABLET.DR PO (08:04)
[2025-10-25] MEDS: Theophylline Anhydrous ER 300 MG TAB.ER.12H PO (08:05)
[2025-10-25] MEDS: guaiFENesin LA 600 MG TAB.ER.12H PO (08:05)
[2025-10-25 11:36] VITALS: BP 121/63; PULSE 83; RESP 20; TEMP 36.4; O2SAT 93
--- NOTE | 2025-10-25 11:46 | MHC.CM.PN ---
[facility]
[2025-10-25 12:12] VITALS: PULSE 83; RESP 20; O2SAT 94
--- NOTE | 2025-10-25 13:04 | PM.DS ---
DS: Providers Provider Date of Service: 10/25/25 Date of admission: 10/23/25 15:48 Date of discharge: 10/25/25 Primary care physician: Janice Núñez MD Consults: 10/23/25 15:47 Consult to Pulmonology Routine Consulting Provider: [facility] Pulmonology Services Reason for consultation: worsening nocturnal hypoxia DS: Diagnosis Discharge Diagnosis (1) COPD exacerbation: Status: Acute DS: Summary Hospital Course Hospital Course: COPD exacerbation 70-year-old female with a past medical history of HTN, HLD, COPD, chronic respiratory failure on 6 L of home oxygen, cor pulmonale, paroxysmal AFib on Eliquis, RITA on BiPAP at night, lung cancer s/p XRT now on chemotherapy; presented to the hospital on 08/09/2025 with acute onset SOB/FERNANDEZ and was noted to be acute hypoxic respiratory failure,chronic hypercarbic respiratory failure requiring BiPAP, was noted to be in exacerbation of COPD as a gradual progression of her end-stage COPD now on 6 L O2 at baseline Acute exacerbation of chronic hypercarbic respiratory failure on 6 L home O2, secondary to COPD exacerbation-improving with steroids Initially treated with IV steroids, now placed on p.o. steroids with prolonged taper which he seems to have responded to during prior admission Nebulizers and BiPAP scheduled and p.r.n. VBG suggestive of acute hypercarbic hypercapnic respiratory distress her baseline, Diamox as needed Patient also has doxycycline 3 more days course to complete 5 day course for anti-inflammatory effect Known Lung cancer status post chemo and radiation-not a candidate for either per Oncology per patient Known RITA on BiPAP nocturnally -unable to tolerate, but indicated Known Severe emphysema-chronic Known Multinodular pulmonary defects-likely mets outpatient palm follow-up Regarding lung cancer-patient reports she had follow-up outpatient a week or 2 ago and she used to the her PET scan showed resolution and although she is not a candidate for further chemo radiation as tolerate Q in her baseline morbidities Paroxysmal AFib on Eliquis Continue Eliquis CAD-continue home meds HTN Continue home management Mood disorders Continue home meds Osteoporosis Continue home meds . DVT prophylaxis with home Eliquis Guarded prognosis, goals of care discussion had with the patient-full code Disposition: Patient going back to her long-term care facility This note is constructed using voice recognition software. While every effort has been made to ensure accuracy, projection printer errors may have been included. Time spent discussing smoking cessation with patient: more than 10 minutes Status at Discharge Functional status at discharge: uses cane/walker Time Attestation Discharge Coordination Time (in mins): Forty-five Quality: Safe Use of Opioids Does Pt have an Active Cancer Diagnosis on the Problem List?: Yes Opioid Measure Date for [facility] Report: 09/25/25 Opioid Measure Time for [facility] Report: 13:07 Quality: Stroke Does the patient have a stroke diagnosis?: No Physical Exam Vital Signs: Vital Signs: Last Vital Signs Temp 97.6 F 10/25/25 11:36 Pulse 83 10/25/25 12:12 Resp 20 10/25/25 12:12 BP 121/63 10/25/25 11:36 Pulse Ox 93 10/25/25 11:36 O2 Del Method Nasal Cannula 10/25/25 11:36 O2 Flow Rate 3 10/25/25 11:36 Oxygen Flow Rate 4 10/23/25 13:51 BMI result Body Mass Index 33.9 DS: Data Data Completed and Pending Completed studies during hospitalization [Text1]: Procedures Assistance with Respiratory Ventilation, Less than 24 Consecutive Hours, Continuous Positive Airway Pressure (08/06/25) Discharge Plan Discharge Anticipated Discharge Date/Time: 10/25/25 12:54 Patient Disposition: Home, Self-Care Discharge Diagnosis: AE COPD Referrals: moises [Other] - 1 Week Eliot Goldstein MD [Physician, Pulmonology] - 1 Week Janice Núñez MD [Primary Care Provider, Internal Medicine] - 1 Week Caden Acharya MD [Physician, Pulmonology] - 1 Week Discharge Medications: New doxycycline hyclate 100 mg capsule 100 mg PO BID 5 Days Qty: 10 0RF prednisone 20 mg tablet See Taper PO BID 7 Days Qty: 28 0RF Taper: Prednisone 40 mg daily for 5 Days and 0 Hour 30 mg daily for 5 Days and 0 Hour 20 mg daily for 5 Days and 0 Hour 10 mg daily for 5 Days and 0 Hour Rx Instructions: 40 mg daily for 5 Days; 30 mg daily for 5 Days; 20 mg daily for 5 Days; 10 mg daily for 5 Days Continued fluticasone propionate 50 mcg/actuation spray,suspension 1 spray intranasal DAILY 30 Days Qty: 16 11RF montelukast 10 mg tablet 10 mg PO BEDTIME 90 Days Qty: 90 3RF ipratropium bromide 0.02 % solution 2.5 ml inhalation QID Qty: 300 11RF albuterol sulfate 2.5 mg /3 mL (0.083 %) solution for nebulization 2.5 mg inhalation QID Qty: 360 11RF albuterol sulfate 90 mcg/actuation HFA aerosol inhaler 2 puff INHALATION Q6H PRN (Reason: Respiratory Distress) Qty: 8.5 11RF theophylline 300 mg tablet extended release 12 hr 300 mg PO Q12H Qty: 60 8RF alendronate [Fosamax] 70 mg Tablet 70 mg PO DOMINGUEZ mirtazapine 15 mg tablet 7.5 mg PO BEDTIME docusate sodium 100 mg capsule 100 mg PO DAILY PRN (Reason: Constipation) pantoprazole 40 mg tablet,delayed release (DR/EC) 40 mg PO DAILY@0630 mineral oil Oil 1 appl TOPICAL Q48H PRN (Reason: eczema) Rx Instructions: apply to both outer ears topically aripiprazole 10 mg tablet 10 mg PO DAILY omega 3-zue-ajm-fish oil [Fish Oil] 1,000 mg (120 mg-180 mg) Capsule 1 cap PO BID Eliquis 5 mg tablet 5 mg PO BID furosemide 40 mg tablet 40 mg PO DAILY lamotrigine 200 mg tablet 200 mg PO BID lactulose [Enulose] 10 gram/15 mL solution 15 ml PO DAILY PRN (Reason: constipation) vilazodone 40 mg tablet 40 mg PO DAILY fluticasone furoate-vilanterol [Breo Ellipta] 200-25 mcg/dose blister with device 1 ea inhalation DAILY calcium carbonate [Oyster Shell Calcium] 500 mg calcium (1,250 mg) Tablet 500 mg PO BID cholecalciferol (vitamin D3) [Vitamin D3] 25 mcg (1,000 unit) Tablet 25 mcg PO DAILY atorvastatin 40 mg tablet 40 mg PO DAILY acetaminophen 325 mg Tablet 650 mg PO Q4H PRN (Reason: Fever/Pain) trazodone 50 mg Tablet 12.5 mg PO BEDTIME metoprolol succinate 100 mg tablet extended release 24 hr 100 mg PO DAILY acetazolamide 250 mg tablet 250 mg PO MOWEFR tramadol 50 mg Tablet 50 mg PO Q6H PRN (Reason: Pain) magnesium hydroxide [Milk of Magnesia] 400 mg/5 mL Suspension 30 ml PO DAILY PRN (Reason: Constipation) bisacodyl 10 mg Suppository 10 mg DE DAILY PRN (Reason: Constipation) aspirin 81 mg Tablet 81 mg PO DAILY loratadine [Claritin] 10 mg Tablet 10 mg PO DAILY Fleet Enema Extra 19-7 gram/197 mL Enema 118 ml DE DAILY PRN (Reason: Constipation) L.acidophilus-Bifido.longum [Probiotic Pearls] 15 mg (1 billion cell) Capsule,Delayed Release(Dr/Ec) 1 cap PO DAILY guaifenesin 600 mg Tablet Extended Release 12hr 1,200 mg PO BID PRN (Reason: Congestion) guaifenesin 600 mg Tablet Extended Release 12hr 600 mg PO BID sennosides [Senokot] 8.6 mg tablet 8.6 mg PO BEDTIME Rx Instructions: Hold for loose stools gabapentin 100 mg capsule 100 mg PO BID (DME) nebulizers Misc See Rx Instructions .Route Rx Instructions: As directed (DME) Oxygen Home Use Kit See Rx Instructions .Route Rx Instructions: As directed ferrous gluconate 324 mg (38 mg iron) tablet 324 mg PO DAILY Held prednisone 10 mg Tablet 10 mg PO DAILY Hold Instructions: Resume on 11/08/25. Resume after prolonged prednisone taper Discharge Orders: Discharge Order (Routine); Ordered 10/25/25 Ordered By: Jerica Mesa Diet: Low salt diet Activity on Discharge: As tolerated Stand Alone Forms: Patient Portal Discharge page Print Language: Vietnamese Care Plan Goals: Follow-up with your pulmonology within a week Follow-up with PCP within a week after discharge Please follow the prolonged prednisone taper Follow up with your oncologist outpatient Health Concerns: See above Plan of Treatment: See above Assessment: See above Patient Instructions: COPD (Chronic Obstructive Pulmonary Disease) (DC)
[2025-10-25] MEDS: Heparin Sodium,Porcine Flush 50 UNITS, 0.9 % Sodium Chloride Flush 5 ML IVFLUSH (13:49)
== END 2025-10-25 14:09 | disposition home or self-care (01) | DRG 190 ==
LOC: HO.ED 15:07 → HO.EDOVER 15:57 → HO.S3 16:42 → HO.IMC 10-24 12:15
PROVIDERS: Admitting Provider Nurse Practitioner Acute Care; Emergency Provider Emergency Medicine; PCP Family Medicine Geriatric Medicine; Visit Provider Student in an Organized Health Care Education/Training Program
DX: J43.9 Emphysema, unspecified (principal); J96.21 Acute and chronic respiratory failure with hypoxia; C34.90 Malignant neoplasm of unspecified part of unspecified bronchus or lung; I48.0 Paroxysmal atrial fibrillation; I25.10 Atherosclerotic heart disease of native coronary artery without angina pectoris; G47.33 Obstructive sleep apnea (adult) (pediatric); E66.812 Obesity, class 2; Z68.33 Body mass index [BMI] 33.0-33.9, adult; Z71.3 Dietary counseling and surveillance; I27.81 Cor pulmonale (chronic); Z20.822 Contact with and (suspected) exposure to COVID-19; Z87.891 Personal history of nicotine dependence; Z99.81 Dependence on supplemental oxygen; Z79.01 Long term (current) use of anticoagulants; Z79.51 Long term (current) use of inhaled steroids; Z79.899 Other long term (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 therapy
CPT/HCPCS: 36415; 71046; 71275; 80048; 80053; 82803; 83735; 83880; 84484; 85025; 85027; 85610; 85730; 87633; 87637; 87640; 87641; 90656; 93005; 94640; 94660; 99222; 99285; J0456; J1271; J1642; J2919; Q9967

== ENCOUNTER → 2025-10-23 13:57 | Outpatient (BNV) | payer OTHER, SELFPAY | PROVIDERS: Admitting Provider Nurse Practitioner Acute Care; Emergency Provider Emergency Medicine; PCP Family Medicine Geriatric Medicine; Visit Provider Internal Medicine Cardiovascular Disease | DX: R06.02 Shortness of breath (principal) | CPT/HCPCS: 93010 ==

== ENCOUNTER → 2025-10-23 14:21 | Outpatient (BNV) | payer OTHER, SELFPAY | PROVIDERS: PCP Family Medicine Geriatric Medicine; Visit Provider Radiology Diagnostic Radiology | DX: J43.2 Centrilobular emphysema (principal); I25.10 Atherosclerotic heart disease of native coronary artery without angina pectoris; K44.9 Diaphragmatic hernia without obstruction or gangrene; R06.02 Shortness of breath | CPT/HCPCS: 71046; 71275 ==

== ENCOUNTER → 2025-10-23 15:48 | Outpatient (BNV) | payer OTHER, SELFPAY | PROVIDERS: Admitting Provider Nurse Practitioner Acute Care; Emergency Provider Emergency Medicine; PCP Family Medicine Geriatric Medicine; Visit Provider Nurse Practitioner Acute Care | DX: I48.0 Paroxysmal atrial fibrillation (principal); J44.1 Chronic obstructive pulmonary disease with (acute) exacerbation | CPT/HCPCS: 99223; 99233 ==

== ENCOUNTER → 2025-10-23 15:48 | Outpatient (BNV) | payer OTHER, SELFPAY | PROVIDERS: Admitting Provider Nurse Practitioner Acute Care; Emergency Provider Emergency Medicine; PCP Family Medicine Geriatric Medicine; Visit Provider Internal Medicine Pulmonary Disease | DX: J44.1 Chronic obstructive pulmonary disease with (acute) exacerbation (principal) | CPT/HCPCS: 99222 ==

== ENCOUNTER 2025-11-10 00:52 | Emergency (ER) | payer OTHER, SELFPAY ==
--- NOTE | 2025-11-10 | ECG_ITS ---
Test Reason : SOB Blood Pressure : */* mmHG Vent. Rate : 93 BPM Atrial Rate : 93 BPM P-R Int : 142 ms QRS Dur : 80 ms QT Int : 304 ms P-R-T Axes : 29 60 54 degrees QTcB Int : 377 ms Sinus rhythm with Premature atrial complexes Otherwise normal ECG When compared with ECG of 23-Oct-2025 13:57, Premature atrial complexes are now Present Referred By: Sheila Patterson Electronically Signed By: ROGERIO JOHNSON MD
--- NOTE | ~2025-11-10 | CT_ITS ---
CLINICAL HISTORY: AMS, on DOAC CT head without contrast Comparison: None provided Findings: No intra-axial mass, midline shift, hydrocephalus, or acute hemorrhage. There is mild volume loss. There is no sinus or mastoid fluid. The orbits are unremarkable. There is no acute fracture. IMPRESSION: 1. No acute intracranial findings. This document has been electronically signed by: Clinton Goodman MD, PHD on 11/10/2025 05:00:52
--- NOTE | ~2025-11-10 | XR_ITS ---
CLINICAL HISTORY: dyspnea 1 view chest x-ray Comparison: CT/REG/SR - CT ANGIO CHEST PE PROTOCOL - 10/23/25 16:56 EST CR/SR - XR CHEST 2 VIEWS - 10/23/25 14:33 EST Findings: Patchy bilateral pulmonary opacities or infiltrates with bronchial wall thickening. Normal size heart. No acute fracture. Right anterior chest wall Port-A-Cath with distal tip in the superior vena cava. IMPRESSION: Patchy bilateral pulmonary opacities or infiltrates with bronchial wall thickening. This document has been electronically signed by: Clinton Goodman MD, PHD on 11/10/2025 02:20:02
[2025-11-10 01:12] VITALS: BP 110/39; BP 142/76; PULSE 100; PULSE 94; RESP 19; TEMP 37.3; O2SAT 93; O2SAT 95; BMI 36.8
[2025-11-10 01:21] VITALS: BP 110/39; PULSE 94; RESP 19; TEMP 37.3; O2SAT 93
--- OUTSIDE RECORDS SUMMARY | 2025-11-10 01:51 | XMS_ITS | Encounter Summary ---
Author Organization [facility] Address [address] [place] [address] Care Team Providers Care Maintenance Supervisor Mechanical Name Role Phone Kinjal Barron HELMET HAT BRIM CUTTER Primary Care Provid er Encounter Details Date Type Department Care Team (Late st Contact Info) Description 09/24/2025 Lab Requisition [facility] - Main Lab [address] [place] [address] Janice Núñez MD [address] [place], [place] [id number] Malignant neoplasm of unspecified part of left [...] Care Team (Late st Contact Info) Description 02/18/2026 10:30 AM EDT Office Visit [facility] Hematology Oncology [address] [place] [phone] Lashanda Mcgill, [address] [place] [address] documented as of this encounter Procedures Procedure Name Priority Date/Time Associated Diagnosis Comments COMPLETE BLOOD COUNT Routine 09/25/2025 6:14 AM EDT Malignant neoplasm of unspecified part of left bronchus or lung (CMS/HCC V24, CMS/HCC V28) Chronic respiratory failure with hypercapnia (CMS/HCC V24, CMS/HCC V28) BASIC METABOLIC PANEL Routine 09/25/2025 6:14 AM EDT Malignant neoplasm of unspecified part of left bronchus or lung (CMS/HCC V24, CMS/HCC V28) Chronic respiratory failure with hypercapnia (CMS/HCC V24, CMS/HCC V28) documented in this encounter Results * (ABNORMAL) Basic metabolic panel (09/25/2025 6:14 AM EDT) Sodium 141 133 - 145 mmol/L LAB CHEMISTRY METHOD 09/25/2025 3:[address] [facility] Potassium 3.3(L) 3.5 - 5.5 mmol/L LAB CHEMISTRY METHOD 09/25/2025 3:[address] [facility] Chloride 93(L) 96 - 110 mmol/L LAB CHEMISTRY METHOD 09/25/2025 3:[address] [facility] CO2 44(HH) 21 - 32 mmol/L LAB CHEMISTRY METHOD 09/25/2025 3:[address] [facility] Anion Gap 4 3 - 11 LAB CHEMISTRY METHOD 09/25/2025 3:[address] [facility] Glucose 71 70 - 100 mg/dL LAB CHEMISTRY METHOD 09/25/2025 3:[address] [facility] BUN 17 5 - 25 mg/dL LAB CHEMISTRY METHOD 09/25/2025 3:[address] [facility] Creatinine 0.86 0.50 - 1.10 mg/dL LAB CHEMISTRY METHOD 09/25/2025 3:[address] [facility] eGFR 72 >=60 mL/min/1. 73m2 LAB CHEMISTRY METHOD 09/25/2025 3:[address] [facility] Comment:Calculation based on the Chronic Kidney Disease Epidemiology Collaboration (CKD-EPI) equation refit without adjustment for race. BUN/Creatinine Ratio 19.8 LAB CHEMISTRY METHOD 09/25/2025 3:46 PM EDT [facility] Calcium 9.3 8.5 - 10.5 mg/dL LAB CHEMISTRY METHOD 09/25/2025 3:46 PM EDT [facility] Blood Venous blood specimen / Unknown Venipuncture / Unknown 09/25/2025 6:14 AM EDT 09/25/2025 12:02 PM EDT us Janice Núñez MD LAB BLOOD ORDERABLES Final Resul t [facility] [address] [place] [address], [place] [phone] * (ABNORMAL) Complete blood count (09/25/2025 6:14 AM EDT) WBC 8.5 4.8 - 10.8 K/mcL LAB HEMETOLOGY METHOD 09/25/2025 12:36 PM EDT [facility] RBC 3.50(L) 3.80 - 4.80 M/mcL LAB HEMETOLOGY METHOD 09/25/2025 12:36 PM EDT [facility] Hemoglobin 10.0(L) 11.5 - 16.0 g/dL LAB HEMETOLOGY METHOD 09/25/2025 12:36 PM EDT [facility] Hematocrit 35.0 35.0 - 47.0 % LAB HEMETOLOGY METHOD 09/25/2025 12:36 PM EDT [facility] MCV 100.9(H) 79.0 - 98.0 FL LAB HEMETOLOGY METHOD 09/25/2025 12:36 PM EDT [facility] MCH 28.8 27.0 - 32.0 pcg LAB HEMETOLOGY METHOD 09/25/2025 12:36 PM EDT [facility] MCHC 28.6(L) 32.0 - 37.0 g/dL LAB HEMETOLOGY METHOD 09/25/2025 12:36 PM EDT [facility] RDW 16.9(H) 11.0 - 15.0 % LAB HEMETOLOGY METHOD 09/25/2025 12:36 PM EDT [facility] Platelets 358 130 - 400 K/mcL LAB HEMETOLOGY METHOD 09/25/2025 12:36 PM EDT [facility] MPV 9.6 7.0 - 11.0 FL LAB HEMETOLOGY METHOD 09/25/2025 12:36 PM EDT [facility] NRBC 0.2 <1.0 % LAB HEMETOLOGY METHOD 09/25/2025 12:36 PM EDT [facility] NRBC Absolute 0.02 <0.10 K/mcL LAB HEMETOLOGY METHOD 09/25/2025 12:36 PM EDT [facility] Blood Venous blood specimen / Unknown Venipuncture / Unknown 09/25/2025 6:14 AM EDT 09/25/2025 10:26 AM EDT us Janice Núñez MD LAB BLOOD ORDERABLES Final Resul t [facility] [address] [place] [address], documented in this encounter Visit Diagnoses Diagnosis Malignant neoplasm of unspecified part of left bronchus or lung (CMS/HCC V24, CMS/HCC V28) Chronic respiratory failure with hypercapnia (CMS/HCC V24, CMS/HCC V28) documented in this encounter Additional Health Concerns Assessment Noted Time PHQ-9 Depression Total Score: 1 07/19/20 25 5:04 PM EDT documented as of this encounter Care Teams Maintenance Supervisor Mechanical Relationship Specialty Start Date End Date Kinjal Barron FNP [address] [place] [phone] PCP - General Family Medicine 03/06/25 documented as of this encounter
--- OUTSIDE RECORDS SUMMARY | 2025-11-10 01:51 | XMS_ITS | Encounter Summary ---
Author Organization [facility] Address [address] [place] [address] Care Team Providers Care Bush Regenerator Name Role Phone Kinjal Barron PASTE UP ARTIST Primary Care Provid er Encounter Details Date Type Department Care Team (Late st Contact Info) Description 10/19/2024 Lab Requisition [facility] - Main Lab [address] [place] [address] Janice Núñez MD [address] [place], [place] [id number] Chronic obstructive pulmonary disease, unspecified (CMS/HCC V24, [...] Description 02/18/2026 10:30 AM EDT Office Visit [facility] Hematology Oncology [address] [place] [phone] Lashanda Mcgill, DO [address] [place] [address] documented as of this encounter Procedures Procedure Name Priority Date/Time Associated Diagnosis Comments COMPLETE BLOOD COUNT Routine 10/22/2024 8:17 AM EST Chronic obstructive pulmonary disease, unspecified (CMS/HCC) BASIC METABOLIC PANEL Routine 10/22/2024 8:17 AM EST Chronic obstructive pulmonary disease, unspecified ([facility]/HCC) documented in this encounter Results * (ABNORMAL) Basic metabolic panel (10/22/2024 8:17 AM EST) Sodium 138 133 - 145 mmol/L LAB CHEMISTRY METHOD 10/22/2024 4:26 PM [facility] Potassium 3.8 3.5 - 5.5 mmol/L LAB CHEMISTRY METHOD 10/22/2024 4:26 PM [facility] Chloride 94(L) 96 - 110 mmol/L LAB CHEMISTRY METHOD 10/22/2024 4:26 PM [facility] CO2 41(HH) 21 - 32 mmol/L LAB CHEMISTRY METHOD 10/22/2024 4:26 PM [facility] Anion Gap 3 3 - 11 LAB CHEMISTRY METHOD 10/22/2024 4:26 PM [facility] Glucose 82 70 - 100 mg/dL LAB CHEMISTRY METHOD 10/22/2024 4:26 PM [facility] BUN 12 5 - 25 mg/dL LAB CHEMISTRY METHOD 10/22/2024 4:26 PM [facility] Creatinine 0.94 0.50 - 1.10 mg/dL LAB CHEMISTRY METHOD 10/22/2024 4:26 PM [facility] eGFR 65 >=60 mL/min/1. 73m2 LAB CHEMISTRY METHOD 10/22/2024 4:26 PM [facility] Comment:Calculation based on the Chronic Kidney Disease Epidemiology Collaboration (CKD-EPI) equation refit without adjustment for race. BUN/Creatinine Ratio 12.8 LAB CHEMISTRY METHOD 10/22/2024 4:26 PM [facility] Calcium 9.2 8.5 - 10.5 mg/dL LAB CHEMISTRY METHOD 10/22/2024 4:26 PM [facility] Blood Venous blood specimen / Unknown Venipuncture / Unknown 10/22/2024 8:17 AM EST 10/22/2024 11:52 AM EST us Janice Núñez MD LAB BLOOD ORDERABLES Final Resul t [facility] [address] [place] [address], * (ABNORMAL) Complete blood count (10/22/2024 8:17 AM EST) WBC 5.5 4.8 - 10.8 K/mcL LAB HEMETOLOGY METHOD 10/22/2024 12:22 PM [facility] RBC 3.40(L) 3.80 - 4.80 M/mcL LAB HEMETOLOGY METHOD 10/22/2024 12:22 PM [facility] Hemoglobin 9.4(L) 11.5 - 16.0 g/dL LAB HEMETOLOGY METHOD 10/22/2024 12:22 PM [facility] Hematocrit 32.9(L) 35.0 - 47.0 % LAB HEMETOLOGY METHOD 10/22/2024 12:22 PM [facility] MCV 96.8 79.0 - 98.0 FL LAB HEMETOLOGY METHOD 10/22/2024 12:22 PM [facility] MCH 27.6 27.0 - 32.0 pcg LAB HEMETOLOGY METHOD 10/22/2024 12:22 PM [facility] MCHC 28.6(L) 32.0 - 37.0 g/dL LAB HEMETOLOGY METHOD 10/22/2024 12:22 PM [facility] RDW 15.0 11.0 - 15.0 % LAB HEMETOLOGY METHOD 10/22/2024 12:22 PM [facility] Platelets 417(H) 130 - 400 K/mcL LAB HEMETOLOGY METHOD 10/22/2024 12:22 PM [facility] MPV 9.8 7.0 - 11.0 FL LAB HEMETOLOGY METHOD 10/22/2024 12:22 PM [facility] NRBC 0.0 <1.0 % LAB HEMETOLOGY METHOD 10/22/2024 12:22 PM [facility] NRBC Absolute 0.00 <0.10 K/mcL LAB HEMETOLOGY METHOD 10/22/2024 12:22 PM [facility] Blood Venous blood specimen / Unknown Venipuncture / Unknown 10/22/2024 8:17 AM EST 10/22/2024 11:52 AM EST us Janice Núñez MD LAB BLOOD ORDERABLES Final Resul t [facility] [address] [place] [address], documented in this encounter Visit Diagnoses Diagnosis [...] documented as of this encounter Care Teams Bush Regenerator Relationship Specialty Start Date End Date Kinjal Barron FNP [address] [place] [phone] PCP - General Family Medicine 03/06/25 documented as of this encounter
--- OUTSIDE RECORDS SUMMARY | 2025-11-10 01:51 | XMS_ITS | Encounter Summary ---
Author Organization [facility] Address [address] [place] [address] Care Team Providers Care Customer Support Coordinator Name Role Phone Kinjal Barron FRANCHISE MANAGER Primary Care Provid er Encounter Details Date Type Department Care Team (Late st Contact Info) Description 10/15/2025 Lab Requisition [facility] - Main Lab [address] [place] [address] Janice Núñez MD [address] [place], [place] [phone] Malignant neoplasm of unspecified part of left [...] Description 02/18/2026 10:30 AM EDT Office Visit [facility] Hematology Oncology [address] [place] [phone] Lashanda Mcgill, [address] [place] [address] documented as of this encounter Procedures Procedure Name Priority Date/Time Associated Diagnosis Comments COMPLETE BLOOD COUNT Routine 10/16/2025 5:37 AM EST Malignant neoplasm of unspecified part of left bronchus or lung (CMS/HCC V24, CMS/HCC V28) Chronic respiratory failure with hypercapnia (CMS/HCC V24, CMS/HCC V28) BASIC METABOLIC PANEL Routine 10/16/2025 5:37 AM EST Malignant neoplasm of unspecified part of left bronchus or lung (CMS/HCC V24, CMS/HCC V28) Chronic respiratory failure with hypercapnia (CMS/HCC V24, CMS/HCC V28) documented in this encounter Results * (ABNORMAL) Basic metabolic panel (10/16/2025 5:37 AM EST) Sodium 141 133 - 145 mmol/L 10/16/2025 12:36 PM [facility] Potassium 3.6 3.5 - 5.5 mmol/L 10/16/2025 12:36 PM [facility] Chloride 93(L) 96 - 110 mmol/L 10/16/2025 12:36 PM [facility] CO2 >40(HH) 21 - 32 mmol/L 10/16/2025 12:36 PM [facility] Anion Gap <8 3 - 11 10/16/2025 12:36 PM [facility] Glucose 73 70 - 100 mg/dL 10/16/2025 12:36 PM [facility] BUN 17 5 - 25 mg/dL 10/16/2025 12:36 PM [facility] Creatinine 0.89 0.50 - 1.10 mg/dL 10/16/2025 12:36 PM [facility] eGFR 69 >=60 mL/min/1. 73m2 10/16/2025 12:36 PM [facility] Comment:Calculation based on the Chronic Kidney Disease Epidemiology Collaboration (CKD-EPI) equation refit without adjustment for race. BUN/Creatinine Ratio 19.1 10/16/2025 12:36 PM [facility] Calcium 8.4(L) 8.5 - 10.5 mg/dL 10/16/2025 12:36 PM [facility] Blood Venous blood specimen / Unknown Venipuncture / Unknown 10/16/2025 5:37 AM EST 10/16/2025 9:38 AM EST us Janice Núñez MD LAB BLOOD ORDERABLES Final Resul t [facility] [address] [place] [address], * (ABNORMAL) Complete blood count (10/16/2025 5:37 AM EST) WBC 8.1 4.8 - 10.8 K/mcL LAB HEMETOLOGY METHOD 10/16/2025 10:28 AM [facility] RBC 2.80(L) 3.80 - 4.80 M/[facility] LAB HEMETOLOGY METHOD 10/16/2025 10:28 AM [facility] Hemoglobin 8.0(L) 11.5 - 16.0 g/dL LAB HEMETOLOGY METHOD 10/16/2025 10:28 AM [facility] Hematocrit 27.8(L) 35.0 - 47.0 % LAB HEMETOLOGY METHOD 10/16/2025 10:28 AM [facility] MCV 98.9(H) 79.0 - 98.0 FL LAB HEMETOLOGY METHOD 10/16/2025 10:28 AM [facility] MCH 28.5 27.0 - 32.0 pcg LAB HEMETOLOGY METHOD 10/16/2025 10:28 AM [facility] MCHC 28.8(L) 32.0 - 37.0 g/dL LAB HEMETOLOGY METHOD 10/16/2025 10:28 AM [facility] RDW 15.3(H) 11.0 - 15.0 % LAB HEMETOLOGY METHOD 10/16/2025 10:28 AM EST [facility] Platelets 400 130 - 400 K/mcL LAB HEMETOLOGY METHOD 10/16/2025 10:28 AM EST [facility] MPV 9.2 7.0 - 11.0 FL LAB HEMETOLOGY METHOD 10/16/2025 10:28 AM EST [facility] NRBC 0.0 <1.0 % LAB HEMETOLOGY METHOD 10/16/2025 10:28 AM [facility] NRBC Absolute 0.00 <0.10 K/mcL LAB HEMETOLOGY METHOD 10/16/2025 10:28 AM [facility] Blood Venous blood specimen / Unknown Venipuncture / Unknown 10/16/2025 5:37 AM EST 10/16/2025 9:38 AM EST us Janice Núñez MD LAB BLOOD ORDERABLES Final Resul t [facility] [address] [place] [address], documented in this encounter Visit Diagnoses Diagnosis Malignant neoplasm of unspecified part of left bronchus or lung (CMS/HCC V24, CMS/HCC V28) Chronic respiratory failure with hypercapnia (CMS/HCC V24, CMS/HCC V28) documented in this encounter Additional Health Concerns Assessment Noted Time PHQ-9 Depression Total Score: 1 07/19/20 25 5:04 PM EDT documented as of this encounter Care Teams Customer Support Coordinator Relationship Specialty Start Date End Date Kinjal Barron FNP [address] [place] [phone] PCP - General Family Medicine 03/06/25 documented as of this encounter
--- OUTSIDE RECORDS SUMMARY | 2025-11-10 01:51 | XMS_ITS | Encounter Summary ---
Author Organization [facility] Address [address] [place] [address] Care Team Providers Care Console Operator Name Role Phone Kinjal Barron ELECTRICAL DRAFTER Primary Care Provid er Encounter Details Date Type Department Care Team (Late st Contact Info) Description 11/20/2024 Lab Requisition [facility] - Main Lab [address] [place] [address] Janice Núeñz MD [address] [place], [place] [phone] Chronic obstructive pulmonary disease, unspecified (CMS/HCC V24, [...] Description 02/18/2026 10:30 AM EDT Office Visit [facility] Hematology Oncology [address] [place] [phone] Lashanda Mcgill, DO [address] [place] [address] documented as of this encounter Procedures Procedure [...] mmol/L LAB CHEMISTRY METHOD 11/20/2024 10:56 AM [facility] Potassium 4.3 3.5 - 5.5 mmol/L LAB CHEMISTRY METHOD 11/20/2024 10:56 AM [facility] Chloride 87(L) 96 - 110 mmol/L LAB CHEMISTRY METHOD 11/20/2024 10:56 AM [facility] CO2 44(HH) 21 - 32 mmol/L LAB CHEMISTRY METHOD 11/20/2024 10:56 AM [facility] Anion Gap 3 3 - 11 LAB CHEMISTRY METHOD 11/20/2024 10:56 AM [facility] Glucose 83 70 - 100 mg/dL LAB CHEMISTRY METHOD 11/20/2024 10:56 AM [facility] BUN 17 5 - 25 mg/dL LAB CHEMISTRY METHOD 11/20/2024 10:56 AM [facility] Creatinine 0.95 0.50 - 1.10 mg/dL LAB CHEMISTRY METHOD 11/20/2024 10:56 AM [facility] eGFR 65 >=60 mL/min/1. 73m2 LAB CHEMISTRY METHOD 11/20/2024 10:56 AM [facility] Comment:Calculation based on the Chronic Kidney Disease Epidemiology Collaboration (CKD-EPI) equation refit without adjustment for race. BUN/Creatinine Ratio 17.9 LAB CHEMISTRY METHOD 11/20/2024 10:56 AM [facility] Calcium 9.2 8.5 - 10.5 mg/dL LAB CHEMISTRY METHOD 11/20/2024 10:56 AM [facility] Blood Venous blood specimen / Unknown Venipuncture / Unknown 11/20/2024 6:24 AM EST 11/20/2024 9:31 AM EST us Janice Núñez MD LAB BLOOD ORDERABLES Final Resul t [facility] [address] [place] [address], * (ABNORMAL) Complete blood count (11/20/2024 6:24 AM EST) WBC 8.4 4.8 - 10.8 K/mcL LAB HEMETOLOGY METHOD 11/20/2024 10:10 AM [facility] RBC 3.70(L) 3.80 - 4.80 M/mcL LAB HEMETOLOGY METHOD 11/20/2024 10:10 AM [facility] Hemoglobin 9.5(L) 11.5 - 16.0 g/dL LAB HEMETOLOGY METHOD 11/20/2024 10:10 AM [facility] Hematocrit 34.1(L) 35.0 - 47.0 % LAB HEMETOLOGY METHOD 11/20/2024 10:10 AM [facility] MCV 93.4 79.0 - 98.0 FL LAB HEMETOLOGY METHOD 11/20/2024 10:10 AM [facility] MCH 26.0(L) 27.0 - 32.0 pcg LAB HEMETOLOGY METHOD 11/20/2024 10:10 AM EST [facility] LAB MCHC 27.9(L) 32.0 - 37.0 g/dL LAB HEMETOLOGY METHOD 11/20/2024 10:10 AM [facility] RDW 14.9 11.0 - 15.0 % LAB HEMETOLOGY METHOD 11/20/2024 10:10 AM EST [facility] LAB Platelets 512(H) 130 - 400 K/mcL LAB HEMETOLOGY METHOD 11/20/2024 10:10 AM [facility] MPV 9.8 7.0 - 11.0 FL LAB HEMETOLOGY METHOD 11/20/2024 10:10 AM [facility] NRBC 0.0 <1.0 % LAB HEMETOLOGY METHOD 11/20/2024 10:10 AM [facility] LAB NRBC Absolute 0.00 <0.10 K/mcL LAB HEMETOLOGY METHOD 11/20/2024 10:10 AM [facility] Blood Venous blood specimen / Unknown Venipuncture / Unknown 11/20/2024 6:24 AM EST 11/20/2024 9:31 AM EST us Janice Núñez MD LAB BLOOD ORDERABLES Final Resul t [facility] [address] [place] [address], documented in this encounter Visit Diagnoses Diagnosis [...] documented as of this encounter Care Teams Console Operator Relationship Specialty Start Date End Date Kinjal Barron FNP [address] [place] [phone] PCP - General Family Medicine 03/06/25 documented as of this encounter
--- OUTSIDE RECORDS SUMMARY | 2025-11-10 01:51 | XMS_ITS | Encounter Summary ---
Author Organization [facility] Address [address] [place] [address] Care Team Providers Care Electrical Design Technologist Name Role Phone Kinjal Barron PLATFORM LOADER Primary Care Provid er Encounter Details Date Type Department Care Team (Late st Contact Info) Description 11/02/2024 Lab Requisition [facility] - Main Lab [address] [place] [address] Janice Núñez MD [address] [place], [place] [phone] Chronic obstructive pulmonary disease, unspecified (CMS/HCC V24, [...] Description 02/18/2026 10:30 AM EDT Office Visit [facility] Hematology Oncology [address] [place] [phone] Lashanda Mcgill, DO [address] [place] [address] documented as of this encounter Procedures Procedure [...] mmol/L LAB CHEMISTRY METHOD 11/02/2024 11:22 AM [facility] Potassium 4.0 3.5 - 5.5 mmol/L LAB CHEMISTRY METHOD 11/02/2024 11:22 AM [facility] Chloride 93(L) 96 - 110 mmol/L LAB CHEMISTRY METHOD 11/02/2024 11:22 AM [facility] CO2 40(H) 21 - 32 mmol/L LAB CHEMISTRY METHOD 11/02/2024 11:22 AM [facility] Anion Gap 5 3 - 11 LAB CHEMISTRY METHOD 11/02/2024 11:22 AM [facility] Glucose 86 70 - 100 mg/dL LAB CHEMISTRY METHOD 11/02/2024 11:22 AM [facility] BUN 12 5 - 25 mg/dL LAB CHEMISTRY METHOD 11/02/2024 11:22 AM [facility] Creatinine 0.86 0.50 - 1.10 mg/dL LAB CHEMISTRY METHOD 11/02/2024 11:22 AM [facility] LAB eGFR 73 >=60 mL/min/1. 73m2 LAB CHEMISTRY METHOD 11/02/2024 11:22 AM EST [facility] Comment:Calculation based on the Chronic Kidney Disease Epidemiology Collaboration (CKD-EPI) equation refit without adjustment for race. BUN/Creatinine Ratio 14.0 LAB CHEMISTRY METHOD 11/02/2024 11:22 AM EST [facility] Calcium 8.9 8.5 - 10.5 mg/dL LAB CHEMISTRY METHOD 11/02/2024 11:22 AM [facility] Blood Venous blood specimen / Unknown Venipuncture / Unknown 11/02/2024 6:47 AM EST 11/02/2024 9:35 AM EST us Janice Núñez MD LAB BLOOD ORDERABLES Final Resul t [facility] [address] [place] [address], * (ABNORMAL) Complete blood count (11/02/2024 6:47 AM EST) WBC 7.4 4.8 - 10.8 K/mcL LAB HEMETOLOGY METHOD 11/02/2024 10:51 AM [facility] RBC 3.60(L) 3.80 - 4.80 M/mcL LAB HEMETOLOGY METHOD 11/02/2024 10:51 AM [facility] Hemoglobin 9.7(L) 11.5 - 16.0 g/dL LAB HEMETOLOGY METHOD 11/02/2024 10:51 AM [facility] Hematocrit 33.4(L) 35.0 - 47.0 % LAB HEMETOLOGY METHOD 11/02/2024 10:51 AM [facility] MCV 93.6 79.0 - 98.0 FL LAB HEMETOLOGY METHOD 11/02/2024 10:51 AM [facility] MCH 27.2 27.0 - 32.0 pcg LAB HEMETOLOGY METHOD 11/02/2024 10:51 AM EST [facility] MCHC 29.0(L) 32.0 - 37.0 g/dL LAB HEMETOLOGY METHOD 11/02/2024 10:51 AM [facility] RDW 14.6 11.0 - 15.0 % LAB HEMETOLOGY METHOD 11/02/2024 10:51 AM [facility] Platelets 509(H) 130 - 400 K/mcL LAB HEMETOLOGY METHOD 11/02/2024 10:51 AM [facility] MPV 9.7 7.0 - 11.0 FL LAB HEMETOLOGY METHOD 11/02/2024 10:51 AM [facility] NRBC 0.0 <1.0 % LAB HEMETOLOGY METHOD 11/02/2024 10:51 AM [facility] NRBC Absolute 0.00 <0.10 K/mcL LAB HEMETOLOGY METHOD 11/02/2024 10:51 AM [facility] Blood Venous blood specimen / Unknown Venipuncture / Unknown 11/02/2024 6:47 AM EST 11/02/2024 9:35 AM EST us Janice Núñez MD LAB BLOOD ORDERABLES Final Resul t [facility] [address] [place] [address], documented in this encounter Visit Diagnoses Diagnosis [...] documented as of this encounter Care Teams Electrical Design Technologist Relationship Specialty Start Date End Date Kinjal Barron FNP [address] [place] [phone] PCP - General Family Medicine 03/06/25 documented as of this encounter
--- OUTSIDE RECORDS SUMMARY | 2025-11-10 01:51 | XMS_ITS | Encounter Summary ---
Author Organization [facility] Address [address] [place] [address] Care Team Providers Care Fur Tailor Name Role Phone Kinjal Barron FINANCIAL RESERVE CLERK Primary Care Provid er Encounter Details Date Type Department Care Team (Late st Contact Info) Description 10/01/2025 Lab Requisition [facility] - Main Lab [address] [place] [address] Janice Núñez MD [address] [place], [place] [phone] Malignant neoplasm of unspecified part of left [...] 02/18/2026 10:30 AM EDT Office Visit [facility] Hematology Oncology [address] [place] [phone] Lashanda Mcgill, [address] [place] [address] documented as of this encounter Procedures Procedure Name Priority Date/Time Associated Diagnosis Comments COMPLETE BLOOD COUNT Routine 10/02/2025 7:32 AM EST Malignant neoplasm of unspecified part of left bronchus or lung (CMS/HCC V24, CMS/HCC V28) Chronic respiratory failure with hypercapnia (CMS/HCC V24, CMS/HCC V28) BASIC METABOLIC PANEL Routine 10/02/2025 7:32 AM EST Malignant neoplasm of unspecified part of left bronchus or lung (CMS/HCC V24, CMS/HCC V28) Chronic respiratory failure with hypercapnia (CMS/HCC V24, CMS/HCC V28) documented in this encounter Results * (ABNORMAL) Basic metabolic panel (10/02/2025 7:32 AM EST) Sodium 138 133 - 145 mmol/L LAB CHEMISTRY METHOD 10/02/2025 10:46 AM [facility] Potassium 3.7 3.5 - 5.5 mmol/L LAB CHEMISTRY METHOD 10/02/2025 10:46 AM [facility] Chloride 92(L) 96 - 110 mmol/L LAB CHEMISTRY METHOD 10/02/2025 10:46 AM [facility] CO2 42(HH) 21 - 32 mmol/L LAB CHEMISTRY METHOD 10/02/2025 10:46 AM [facility] LAB Anion Gap 4 3 - 11 LAB CHEMISTRY METHOD 10/02/2025 10:46 AM [facility] Glucose 95 70 - 100 mg/dL LAB CHEMISTRY METHOD 10/02/2025 10:46 AM [facility] BUN 16 5 - 25 mg/dL LAB CHEMISTRY METHOD 10/02/2025 10:46 AM [facility] Creatinine 1.12(H) 0.50 - 1.10 mg/dL LAB CHEMISTRY METHOD 10/02/2025 10:46 AM [facility] LAB eGFR 53(L) >=60 mL/min/1. 73m2 LAB CHEMISTRY METHOD 10/02/2025 10:46 AM [facility] LAB Comment:Calculation based on the Chronic Kidney Disease Epidemiology Collaboration (CKD-EPI) equation refit without adjustment for race. BUN/Creatinine Ratio 14.3 LAB CHEMISTRY METHOD 10/02/2025 10:46 AM [facility] LAB Calcium 9.2 8.5 - 10.5 mg/dL LAB CHEMISTRY METHOD 10/02/2025 10:46 AM [facility] LAB Blood Venous blood specimen / Unknown Venipuncture / Unknown 10/02/2025 7:32 AM EST 10/02/2025 8:51 AM EST us Janice Núñez MD LAB BLOOD ORDERABLES Final Resul t [facility] [address] [place] [address], [place] [phone] * (ABNORMAL) Complete blood count (10/02/2025 7:32 AM EST) WBC 7.3 4.8 - 10.8 K/mcL LAB HEMETOLOGY METHOD 10/02/2025 9:43 AM [facility] LAB RBC 3.50(L) 3.80 - 4.80 M/[facility] LAB HEMETOLOGY METHOD 10/02/2025 9:43 AM [facility] LAB Hemoglobin 9.9(L) 11.5 - 16.0 g/dL LAB HEMETOLOGY METHOD 10/02/2025 9:43 AM [facility] LAB Hematocrit 34.1(L) 35.0 - 47.0 % LAB HEMETOLOGY METHOD 10/02/2025 9:43 AM [facility] LAB MCV 98.8(H) 79.0 - 98.0 FL LAB HEMETOLOGY METHOD 10/02/2025 9:43 AM [facility] LAB MCH 28.7 27.0 - 32.0 pcg LAB HEMETOLOGY METHOD 10/02/2025 9:43 AM [facility] LAB MCHC 29.0(L) 32.0 - 37.0 g/dL LAB HEMETOLOGY METHOD 10/02/2025 9:43 AM EST [facility] RDW 16.7(H) 11.0 - 15.0 % LAB HEMETOLOGY METHOD 10/02/2025 9:43 AM [facility] LAB Platelets 443(H) 130 - 400 K/mcL LAB HEMETOLOGY METHOD 10/02/2025 9:43 AM EST [facility] MPV 9.3 7.0 - 11.0 FL LAB HEMETOLOGY METHOD 10/02/2025 9:43 AM EST [facility] NRBC 0.0 <1.0 % LAB HEMETOLOGY METHOD 10/02/2025 9:43 AM [facility] NRBC Absolute 0.00 <0.10 K/mcL LAB HEMETOLOGY METHOD 10/02/2025 9:43 AM [facility] Blood Venous blood specimen / Unknown Venipuncture / Unknown 10/02/2025 7:32 AM EST 10/02/2025 8:51 AM EST us Janice Núñez MD LAB BLOOD ORDERABLES Final Resul t [facility] [address] [place] [address], documented in this encounter Visit Diagnoses Diagnosis Malignant neoplasm of unspecified part of left bronchus or lung (CMS/HCC V24, CMS/HCC V28) Chronic respiratory failure with hypercapnia (CMS/HCC V24, CMS/HCC V28) documented in this encounter Additional Health Concerns Assessment Noted Time PHQ-9 Depression Total Score: 1 07/19/20 25 5:04 PM EDT documented as of this encounter Care Teams Fur Tailor Relationship Specialty Start Date End Date Kinjal Barron FNP [address] [place] [phone] PCP - General Family Medicine 03/06/25 documented as of this encounter
--- OUTSIDE RECORDS SUMMARY | 2025-11-10 01:51 | XMS_ITS | Encounter Summary ---
Author Organization [facility] Address [address] [place] [address] Care Team Providers Care Stock Dealer Name Role Phone Kinjal Barron HOSPITAL CLINIC ASSISTANT Primary Care Provid er Encounter Details Date Type Department Care Team (Late st Contact Info) Description 10/22/2025 Lab Requisition [facility] - Main Lab [address] [place] [address] Janice Núñez MD [address] [place], [place] [phone] Malignant neoplasm of unspecified part of left [...] 9:10 AM EDT Sexual Orientation Straight 03/07/2025 9 :10 AM EDT Occupation Industry Job Start Date [...] Description 02/18/2026 10:30 AM EDT Office Visit [facility] Hematology Oncology [address] [place] [phone] Lashanda Mcgill, [address] [place] [address] documented as of this encounter Procedures Procedure Name Priority Date/Time Associated Diagnosis Comments COMPLETE BLOOD COUNT Routine 10/23/2025 7:00 AM EST Malignant neoplasm of unspecified part of left bronchus or lung (CMS/HCC V24, CMS/HCC V28) Chronic respiratory failure with hypercapnia (CMS/HCC V24, CMS/HCC V28) BASIC METABOLIC PANEL Routine 10/23/2025 7:00 AM EST Malignant neoplasm of unspecified part of left bronchus or lung (CMS/HCC V24, CMS/HCC V28) Chronic respiratory failure with hypercapnia (CMS/HCC V24, CMS/HCC V28) documented in this encounter Results * (ABNORMAL) Basic metabolic panel (10/23/2025 7:00 AM EST) Sodium 142 133 - 145 mmol/L 10/23/2025 10:41 AM [facility] Potassium 3.7 3.5 - 5.5 mmol/L 10/23/2025 10:41 AM [facility] Chloride 92(L) 96 - 110 mmol/L 10/23/2025 10:41 AM [facility] CO2 >40(HH) 21 - 32 mmol/L 10/23/2025 10:41 AM [facility] Anion Gap <10 3 - 11 10/23/2025 10:41 AM [facility] Glucose 89 70 - 100 mg/dL 10/23/2025 10:41 AM [facility] BUN 13 5 - 25 mg/dL 10/23/2025 10:41 AM [facility] Creatinine 0.89 0.50 - 1.10 mg/dL 10/23/2025 10:41 AM [facility] LAB eGFR 69 >=60 mL/min/1. 73m2 10/23/2025 10:41 AM [facility] Comment:Calculation based on the Chronic Kidney Disease Epidemiology Collaboration (CKD-EPI) equation refit without adjustment for race. BUN/Creatinine Ratio 14.6 10/23/2025 10:41 AM [facility] Calcium 7.7(L) 8.5 - 10.5 mg/dL 10/23/2025 10:41 AM [facility] Blood Venous blood specimen / Unknown Venipuncture / Unknown 10/23/2025 7:00 AM EST 10/23/2025 9:25 AM EST us Janice Núñez MD LAB BLOOD ORDERABLES Final Resul t [facility] [address] [place] [address], * (ABNORMAL) Complete blood count (10/23/2025 7:00 AM EST) WBC 6.2 4.8 - 10.8 K/mcL LAB HEMETOLOGY METHOD 10/23/2025 9:38 AM [facility] RBC 3.00(L) 3.80 - 4.80 M/[facility] LAB HEMETOLOGY METHOD 10/23/2025 9:38 AM [facility] Hemoglobin 8.2(L) 11.5 - 16.0 g/dL LAB HEMETOLOGY METHOD 10/23/2025 9:38 AM [facility] Hematocrit 29.5(L) 35.0 - 47.0 % LAB HEMETOLOGY METHOD 10/23/2025 9:38 AM [facility] MCV 97.4 79.0 - 98.0 FL LAB HEMETOLOGY METHOD 10/23/2025 9:38 AM [facility] MCH 27.1 27.0 - 32.0 pcg LAB HEMETOLOGY METHOD 10/23/2025 9:38 AM [facility] MCHC 27.8(L) 32.0 - 37.0 g/dL LAB HEMETOLOGY METHOD 10/23/2025 9:38 AM [facility] RDW 15.1(H) 11.0 - 15.0 % LAB HEMETOLOGY METHOD 10/23/2025 9:38 AM EST [facility] Platelets 384 130 - 400 K/mcL LAB HEMETOLOGY METHOD 10/23/2025 9:38 AM EST [facility] MPV 9.2 7.0 - 11.0 FL LAB HEMETOLOGY METHOD 10/23/2025 9:38 AM EST [facility] NRBC 0.0 <1.0 % LAB HEMETOLOGY METHOD 10/23/2025 9:38 AM EST [facility] NRBC Absolute 0.00 <0.10 K/mcL LAB HEMETOLOGY METHOD 10/23/2025 9:38 AM [facility] Blood Venous blood specimen / Unknown Venipuncture / Unknown 10/23/2025 7:00 AM EST 10/23/2025 9:25 AM EST us Janice Núñez MD LAB BLOOD ORDERABLES Final Resul t [facility] [address] [place] [address], documented in this encounter Visit Diagnoses Diagnosis Malignant neoplasm of unspecified part of left bronchus or lung (CMS/HCC V24, CMS/HCC V28) Chronic respiratory failure with hypercapnia ([facility]/HCC V24, CMS/HCC V28) documented in this encounter Additional Health Concerns Assessment Noted Time PHQ-9 Depression Total Score: 1 07/19/20 25 5:04 PM EDT documented as of this encounter Care Teams Stock Dealer Relationship Specialty Start Date End Date Kinjal Barron FNP [address] [place] [phone] PCP - General Family Medicine 03/06/25 documented as of this encounter
--- OUTSIDE RECORDS SUMMARY | 2025-11-10 01:51 | XMS_ITS | Encounter Summary ---
Author Organization [facility] Address [address] [place] [address] Care Team Providers Care Customer Service Consultant Name Role Phone Kinjal Barron OVERHEAD CRANE OPERATOR Primary Care Provid er Encounter Details Date Type Department Care Team (Late st Contact Info) Description 10/16/2025 Lab Requisition [facility] - Main Lab [address] [facility] [facility] [address] [place] [address] Janice Núñez MD [address] [place], [place] [phone] Dysuria Social History Tobacco Use Types Packs/Day Years [...] Description 02/18/2026 10:30 AM EDT Office Visit [facility] Hematology Oncology [address] [place] [phone] Lashanda Mcgill, DO [address] [place] [address] documented as of this encounter Procedures Procedure Name Priority Date/Time Associated Diagnosis Comments URINALYSIS WITH REFLEX MICROSCOPIC Routine 10/16/2025 12:00 AM EST Dysuria URINALYSIS WITH REFLEX MICROSCOPIC Routine 10/16/2025 12:00 AM EST Dysuria CULTURE URINE Routine 10/16/2025 12:00 AM EST Dysuria documented in this encounter Results * (ABNORMAL) Urinalysis with reflex microscopic (10/16/2025 12:00 AM EST) Specific Evart Urine 1.015 1.003 - 1.030 LAB URINALYSIS - AUTOMATED METHOD 10/16/2025 11:46 AM [facility] pH, Urine 7.5 5.0 - 8.0 pH LAB URINALYSIS - AUTOMATED METHOD 10/16/2025 11:46 AM [facility] Leukocytes, Urine Large(A) Negative LAB URINALYSIS - AUTOMATED METHOD 10/16/2025 11:46 AM [facility] Nitrite, Urine Negative Negative LAB URINALYSIS - AUTOMATED METHOD 10/16/2025 11:46 AM [facility] Protein, Urine 100(A) <=Trace mg/dL LAB URINALYSIS - AUTOMATED METHOD 10/16/2025 11:46 AM [facility] Glucose, Urine Negative Negative mg/dL LAB URINALYSIS - AUTOMATED METHOD 10/16/2025 11:46 AM [facility] Ketones, Urine Negative Negative mg/dL LAB URINALYSIS - AUTOMATED METHOD 10/16/2025 11:46 AM [facility] Urobilinogen , Urine 0.2 0.2 - 1.0 mg/dL LAB URINALYSIS - AUTOMATED METHOD 10/16/2025 11:46 AM [facility] Bilirubin, Urine Negative Negative LAB URINALYSIS - AUTOMATED METHOD 10/16/2025 11:46 AM [facility] Blood, Urine Moderate(A) Negative LAB URINALYSIS - AUTOMATED METHOD 10/16/2025 11:46 AM [facility] RBC, Urine 20(H) 0 - 4 /HPF 10/16/2025 11:46 AM [facility] WBC, Urine 30(H) 0 - 4 /HPF 10/16/2025 11:46 AM EST [facility] Squamous Epithelial, Urine 2 0 - 60 /LPF 10/16/2025 11:46 AM EST [facility] Non-Squamous Epithelial, Urine 2-5 Transitional epithelial cells. /LPF 10/16/2025 11:46 AM EST [facility] Bacteria, Urine Moderate(A) Negative /HPF 10/16/2025 11:46 AM EST [facility] Urine Urine specimen from urethra / Unknown Non-blood Collection / Unknown 10/16/2025 10/16/2025 10:00 AM EST Janice Núñez MD LAB URINE ORDERABLES Final Resul t [facility] [address] [place] [address], * (ABNORMAL) Culture urine (10/16/2025 12:00 AM EST) Culture, Urine 50,000-100,000 CFU/mL Klebsiella aerogenes(A) SERGIO 10/18/2025 10:36 AM EST [facility] Comment: This is an edited result. Previous organism was Gram negative bacilli on 10/17/2025 at 0801 EST. Urine Urine specimen from urethra / Unknown Non-blood Collection / Unknown 10/16/2025 10/16/2025 10:00 AM EST Narrative Organism Antibiotic Method Susceptibility Klebsiella aerogenes Amoxicillin/Clavulanate SERGIO 16 ug/ml: Resistant Klebsiella aerogenes Cefoxitin SERGIO >=64 ug/ml: Resistant Klebsiella aerogenes Ceftazidime SERGIO <=0.5 ug/ml: Susceptible Klebsiella aerogenes Ceftriaxone SERGIO <=0.25 ug/ml: Susceptible Klebsiella aerogenes Cefepime SERGIO <=0.12 ug/ml: Susceptible Klebsiella aerogenes Amikacin SERGIO <=1 ug/ml: Susceptible Klebsiella aerogenes Gentamicin SERGIO <=1 ug/ml: Susceptible Klebsiella aerogenes Ciprofloxacin SERGIO <=0.06 ug/ml: Susceptible Klebsiella aerogenes Levofloxacin SERGIO <=0.12 ug/ml: Susceptible Klebsiella aerogenes Nitrofurantoin SERGIO 64 ug/ml: Intermediate Klebsiella aerogenes Trimethoprim/Sulfamethoxazole SERGIO <=20 ug/ml: Susceptible Janice Núñez MD LAB MICROBIOLOGY - GENERAL ORDER KANE Final Result [facility] [address] [place] [address], documented in this encounter Visit Diagnoses Diagnosis Dysuria documented in this encounter Additional Health Concerns Assessment Noted Time PHQ-9 Depression Total Score: 1 07/19/20 25 5:04 PM EDT documented as of this encounter Care Teams Customer Service Consultant Relationship Specialty Start Date End Date Kinjal Barron FNP [address] [place] [phone] PCP - General Family Medicine 03/06/25 documented as of this encounter
--- OUTSIDE RECORDS SUMMARY | 2025-11-10 01:51 | XMS_ITS | Encounter Summary ---
Author Organization [facility] Address [address] [place] [address] Care Team Providers Care Foxing Closer Name Role Phone Kinjal Barron RN RECRUITMENT Primary Care Provid er Encounter Details Date Type Department Care Team (Late st Contact Info) Description 12/11/2024 Lab Requisition [facility] - Main Lab [address] [place] [address] Glenroy Goff MD [address] [facility] [address] [place], [phone] Chronic obstructive pulmonary disease, unspecified (CMS/HCC [...] 02/18/2026 10:30 AM EDT Office Visit [facility] Hematology Oncology [address] [place] [phone] Lashanda Mcgill, DO [address] [place] [address] documented as of this encounter Procedures Procedure Name Priority Date/Time Associated Diagnosis Comments COMPLETE BLOOD COUNT Routine 12/11/2024 6:30 AM EST Chronic obstructive pulmonary disease, unspecified (CMS/HCC) BASIC METABOLIC PANEL Routine 12/11/2024 6:30 AM EST Chronic obstructive pulmonary disease, unspecified ([facility]/HCC) documented in this encounter Results * (ABNORMAL) Basic metabolic panel (12/11/2024 6:30 AM EST) Sodium 131(L) 133 - 145 mmol/L LAB CHEMISTRY METHOD 12/11/2024 11:11 AM [facility] Potassium 4.1 3.5 - 5.5 mmol/L LAB CHEMISTRY METHOD 12/11/2024 11:11 AM [facility] Chloride 84(L) 96 - 110 mmol/L LAB CHEMISTRY METHOD 12/11/2024 11:11 AM [facility] CO2 43(HH) 21 - 32 mmol/L LAB CHEMISTRY METHOD 12/11/2024 11:11 AM [facility] Anion Gap 4 3 - 11 LAB CHEMISTRY METHOD 12/11/2024 11:11 AM [facility] Glucose 89 70 - 100 mg/dL LAB CHEMISTRY METHOD 12/11/2024 11:11 AM [facility] BUN 17 5 - 25 mg/dL LAB CHEMISTRY METHOD 12/11/2024 11:11 AM [facility] Creatinine 0.83 0.50 - 1.10 mg/dL LAB CHEMISTRY METHOD 12/11/2024 11:11 AM EST [facility] eGFR 76 >=60 mL/min/1. 73m2 LAB CHEMISTRY METHOD 12/11/2024 11:11 AM [facility] Comment:Calculation based on the Chronic Kidney Disease Epidemiology Collaboration (CKD-EPI) equation refit without adjustment for race. BUN/Creatinine Ratio 20.5 LAB CHEMISTRY METHOD 12/11/2024 11:11 AM [facility] Calcium 8.6 8.5 - 10.5 mg/dL LAB CHEMISTRY METHOD 12/11/2024 11:11 AM [facility] Blood Venous blood specimen / Unknown Venipuncture / Unknown 12/11/2024 6:30 AM EST 12/11/2024 9:22 AM EST us Glenroy Goff MD LAB BLOOD ORDERABLES Final Resul t [facility] [address] [place] [address], * (ABNORMAL) Complete blood count (12/11/2024 6:30 AM EST) WBC 7.2 4.8 - 10.8 K/mcL LAB HEMETOLOGY METHOD 12/11/2024 11:11 AM [facility] RBC 3.00(L) 3.80 - 4.80 M/mcL LAB HEMETOLOGY METHOD 12/11/2024 11:11 AM [facility] Hemoglobin 7.5(L) 11.5 - 16.0 g/dL LAB HEMETOLOGY METHOD 12/11/2024 11:11 AM [facility] Hematocrit 26.9(L) 35.0 - 47.0 % LAB HEMETOLOGY METHOD 12/11/2024 11:11 AM [facility] MCV 89.4 79.0 - 98.0 FL LAB HEMETOLOGY METHOD 12/11/2024 11:11 AM [facility] MCH 24.9(L) 27.0 - 32.0 pcg LAB HEMETOLOGY METHOD 12/11/2024 11:11 AM EST [facility] MCHC 27.9(L) 32.0 - 37.0 g/dL LAB HEMETOLOGY METHOD 12/11/2024 11:11 AM [facility] RDW 15.7(H) 11.0 - 15.0 % LAB HEMETOLOGY METHOD 12/11/2024 11:11 AM EST [facility] Platelets 399 130 - 400 K/mcL LAB HEMETOLOGY METHOD 12/11/2024 11:11 AM [facility] MPV 10.0 7.0 - 11.0 FL LAB HEMETOLOGY METHOD 12/11/2024 11:11 AM [facility] NRBC 0.0 <1.0 % LAB HEMETOLOGY METHOD 12/11/2024 11:11 AM [facility] NRBC Absolute 0.00 <0.10 K/mcL LAB HEMETOLOGY METHOD 12/11/2024 11:11 AM [facility] Blood Venous blood specimen / Unknown Venipuncture / Unknown 12/11/2024 6:30 AM EST 12/11/2024 9:22 AM EST us Glenroy Goff MD LAB BLOOD ORDERABLES Final Resul t [facility] [address] [place] [address], documented in this encounter Visit Diagnoses Diagnosis [...] documented as of this encounter Care Teams Foxing Closer Relationship Specialty Start Date End Date Kinjal Barron FNP [address] [place] [phone] PCP - General Family Medicine 03/06/25 documented as of this encounter
--- OUTSIDE RECORDS SUMMARY | 2025-11-10 01:51 | XMS_ITS | Encounter Summary ---
Author Organization [facility] Address [address] [place] [address] Care Team Providers Care Dog Raiser Name Role Phone Kinjal Barron CORPORATE DIRECTOR OF PHARMACY Primary Care Provid er Encounter Details Date Type Department Care Team (Late st Contact Info) Description 10/27/2024 Lab Requisition [facility] - Main Lab [address] [facility] [place] [address] Janice Núñez MD [address] [place], [place] [phone] Chronic obstructive pulmonary disease, unspecified (CMS/HCC V24, [...] Description 02/18/2026 10:30 AM EDT Office Visit [facility] Hematology Oncology [address] [place] [phone] Lashanda Mcgill, DO [address] [place] [address] documented as of this encounter Procedures Procedure Name Priority Date/Time Associated Diagnosis Comments COMPLETE BLOOD COUNT Routine 10/29/2024 8:00 AM EST Chronic obstructive pulmonary disease, unspecified (CMS/HCC) BASIC METABOLIC PANEL Routine 10/29/2024 8:00 AM EST Chronic obstructive pulmonary disease, unspecified ([facility]/HCC) documented in this encounter Results * (ABNORMAL) Basic metabolic panel (10/29/2024 8:00 AM EST) Sodium 138 133 - 145 mmol/L LAB CHEMISTRY METHOD 10/29/2024 2:01 PM [facility] Potassium 3.6 3.5 - 5.5 mmol/L LAB CHEMISTRY METHOD 10/29/2024 2:01 PM [facility] Chloride 91(L) 96 - 110 mmol/L LAB CHEMISTRY METHOD 10/29/2024 2:01 PM [facility] CO2 40(H) 21 - 32 mmol/L LAB CHEMISTRY METHOD 10/29/2024 2:01 PM [facility] Anion Gap 7 3 - 11 LAB CHEMISTRY METHOD 10/29/2024 2:01 PM [facility] Glucose 86 70 - 100 mg/dL LAB CHEMISTRY METHOD 10/29/2024 2:01 PM [facility] BUN 15 5 - 25 mg/dL LAB CHEMISTRY METHOD 10/29/2024 2:01 PM [facility] Creatinine 0.89 0.50 - 1.10 mg/dL LAB CHEMISTRY METHOD 10/29/2024 2:01 PM [facility] eGFR 70 >=60 mL/min/1. 73m2 LAB CHEMISTRY METHOD 10/29/2024 2:01 PM [facility] Comment:Calculation based on the Chronic Kidney Disease Epidemiology Collaboration (CKD-EPI) equation refit without adjustment for race. BUN/Creatinine Ratio 16.9 LAB CHEMISTRY METHOD 10/29/2024 2:01 PM [facility] Calcium 9.3 8.5 - 10.5 mg/dL LAB CHEMISTRY METHOD 10/29/2024 2:01 PM [facility] Blood Venous blood specimen / Unknown Venipuncture / Unknown 10/29/2024 8:00 AM EST 10/29/2024 11:30 AM EST us Janice Núñez MD LAB BLOOD ORDERABLES Final Resul t [facility] [address] [place] [address], * (ABNORMAL) Complete blood count (10/29/2024 8:00 AM EST) WBC 6.3 4.8 - 10.8 K/mcL LAB HEMETOLOGY METHOD 10/29/2024 12:10 PM [facility] RBC 3.70(L) 3.80 - 4.80 M/mcL LAB HEMETOLOGY METHOD 10/29/2024 12:10 PM [facility] Hemoglobin 10.1(L) 11.5 - 16.0 g/dL LAB HEMETOLOGY METHOD 10/29/2024 12:10 PM [facility] Hematocrit 35.2 35.0 - 47.0 % LAB HEMETOLOGY METHOD 10/29/2024 12:10 PM [facility] MCV 94.1 79.0 - 98.0 FL LAB HEMETOLOGY METHOD 10/29/2024 12:10 PM [facility] MCH 27.0 27.0 - 32.0 pcg LAB HEMETOLOGY METHOD 10/29/2024 12:10 PM EST [facility] MCHC 28.7(L) 32.0 - 37.0 g/dL LAB HEMETOLOGY METHOD 10/29/2024 12:10 PM [facility] RDW 14.5 11.0 - 15.0 % LAB HEMETOLOGY METHOD 10/29/2024 12:10 PM [facility] Platelets 504(H) 130 - 400 K/mcL LAB HEMETOLOGY METHOD 10/29/2024 12:10 PM [facility] MPV 9.3 7.0 - 11.0 FL LAB HEMETOLOGY METHOD 10/29/2024 12:10 PM [facility] NRBC 0.0 <1.0 % LAB HEMETOLOGY METHOD 10/29/2024 12:10 PM [facility] NRBC Absolute 0.00 <0.10 K/mcL LAB HEMETOLOGY METHOD 10/29/2024 12:10 PM [facility] Blood Venous blood specimen / Unknown Venipuncture / Unknown 10/29/2024 8:00 AM EST 10/29/2024 11:30 AM EST us Janice Núñez MD LAB BLOOD ORDERABLES Final Resul t [facility] [address] [place] [address], documented in this encounter Visit Diagnoses Diagnosis [...] documented as of this encounter Care Teams Dog Raiser Relationship Specialty Start Date End Date Kinjal Barron FNP [address] [place] [phone] PCP - General Family Medicine 03/06/25 documented as of this encounter
--- OUTSIDE RECORDS SUMMARY | 2025-11-10 01:51 | XMS_ITS | Encounter Summary ---
Author Organization [facility] Address [address] [place] [address] Care Team Providers Care Assistant Spa Director Name Role Phone Kinjal Barron NUTRITION DIRECTOR Primary Care Provid er Encounter Details Date Type Department Care Team (Late st Contact Info) Description 10/08/2025 Lab Requisition [facility] - Main Lab [address] [place] [address] Janice Núñez MD [address] [place], [place] [phone] Malignant neoplasm of unspecified part of left [...] Description 02/18/2026 10:30 AM EDT Office Visit [facility] Hematology Oncology [address] [place] [phone] Lashanda Mcgill, [address] [place] [address] documented as of this encounter Procedures Procedure Name Priority Date/Time Associated Diagnosis Comments COMPLETE BLOOD COUNT Routine 10/09/2025 5:27 AM EST Malignant neoplasm of unspecified part of left bronchus or lung (CMS/HCC V24, CMS/HCC V28) Chronic respiratory failure with hypercapnia (CMS/HCC V24, CMS/HCC V28) BASIC METABOLIC PANEL Routine 10/09/2025 5:27 AM EST Malignant neoplasm of unspecified part of left bronchus or lung (CMS/HCC V24, CMS/HCC V28) Chronic respiratory failure with hypercapnia (CMS/HCC V24, CMS/HCC V28) documented in this encounter Results * (ABNORMAL) Basic metabolic panel (10/09/2025 5:27 AM EST) Sodium 140 133 - 145 mmol/L LAB CHEMISTRY METHOD 10/09/2025 11:49 AM [facility] Potassium 3.6 3.5 - 5.5 mmol/L LAB CHEMISTRY METHOD 10/09/2025 11:49 AM [facility] Chloride 95(L) 96 - 110 mmol/L LAB CHEMISTRY METHOD 10/09/2025 11:49 AM [facility] CO2 42(HH) 21 - 32 mmol/L LAB CHEMISTRY METHOD 10/09/2025 11:49 AM [facility] Anion Gap 3 3 - 11 LAB CHEMISTRY METHOD 10/09/2025 11:49 AM [facility] Glucose 89 70 - 100 mg/dL LAB CHEMISTRY METHOD 10/09/2025 11:49 AM [facility] BUN 12 5 - 25 mg/dL LAB CHEMISTRY METHOD 10/09/2025 11:49 AM [facility] Creatinine 0.78 0.50 - 1.10 mg/dL LAB CHEMISTRY METHOD 10/09/2025 11:49 AM [facility] eGFR 81 >=60 mL/min/1. 73m2 LAB CHEMISTRY METHOD 10/09/2025 11:49 AM [facility] Comment:Calculation based on the Chronic Kidney Disease Epidemiology Collaboration (CKD-EPI) equation refit without adjustment for race. BUN/Creatinine Ratio 15.4 LAB CHEMISTRY METHOD 10/09/2025 11:49 AM [facility] Calcium 8.6 8.5 - 10.5 mg/dL LAB CHEMISTRY METHOD 10/09/2025 11:49 AM [facility] Blood Venous blood specimen / Unknown Venipuncture / Unknown 10/09/2025 5:27 AM EST 10/09/2025 10:52 AM EST us Janice Núñez MD LAB BLOOD ORDERABLES Final Resul t [facility] [address] [place] [address], [place] [phone] * (ABNORMAL) Complete blood count (10/09/2025 5:27 AM EST) WBC 6.7 4.8 - 10.8 K/mcL LAB HEMETOLOGY METHOD 10/09/2025 11:05 AM [facility] RBC 3.10(L) 3.80 - 4.80 M/mcL LAB HEMETOLOGY METHOD 10/09/2025 11:05 AM [facility] Hemoglobin 8.9(L) 11.5 - 16.0 g/dL LAB HEMETOLOGY METHOD 10/09/2025 11:05 AM [facility] Hematocrit 31.3(L) 35.0 - 47.0 % LAB HEMETOLOGY METHOD 10/09/2025 11:05 AM [facility] MCV 100.0(H) 79.0 - 98.0 FL LAB HEMETOLOGY METHOD 10/09/2025 11:05 AM [facility] MCH 28.4 27.0 - 32.0 pcg LAB HEMETOLOGY METHOD 10/09/2025 11:05 AM [facility] MCHC 28.4(L) 32.0 - 37.0 g/dL LAB HEMETOLOGY METHOD 10/09/2025 11:05 AM EST [facility] RDW 16.5(H) 11.0 - 15.0 % LAB HEMETOLOGY METHOD 10/09/2025 11:05 AM [facility] Platelets 415(H) 130 - 400 K/mcL LAB HEMETOLOGY METHOD 10/09/2025 11:05 AM [facility] MPV 9.4 7.0 - 11.0 FL LAB HEMETOLOGY METHOD 10/09/2025 11:05 AM [facility] NRBC 0.0 <1.0 % LAB HEMETOLOGY METHOD 10/09/2025 11:05 AM [facility] NRBC Absolute 0.00 <0.10 K/mcL LAB HEMETOLOGY METHOD 10/09/2025 11:05 AM [facility] Blood Venous blood specimen / Unknown Venipuncture / Unknown 10/09/2025 5:27 AM EST 10/09/2025 10:53 AM EST us Janice Núñez MD LAB BLOOD ORDERABLES Final Resul t [facility] [address] [place] [address], documented in this encounter Visit Diagnoses Diagnosis Malignant neoplasm of unspecified part of left bronchus or lung (CMS/HCC V24, CMS/HCC V28) Chronic respiratory failure with hypercapnia (CMS/HCC V24, CMS/HCC V28) documented in this encounter Additional Health Concerns Assessment Noted Time PHQ-9 Depression Total Score: 1 07/19/20 25 5:04 PM EDT documented as of this encounter Care Teams Assistant Spa Director Relationship Specialty Start Date End Date Kinjal Barron FNP [address] [place] [phone] PCP - General Family Medicine 03/06/25 documented as of this encounter
--- OUTSIDE RECORDS SUMMARY | 2025-11-10 01:51 | XMS_ITS | Encounter Summary ---
Author Organization [facility] Address [address] [place] [address] Care Team Providers Care Burning Plant Operator Name Role Phone Kinjal Barron 4TH GRADE MATH TEACHER Primary Care Provid er Encounter Details Date Type Department Care Team (Late st Contact Info) Description 11/05/2025 Lab Requisition [facility] - Main Lab [address] [place] [address] Jnaice Núñez MD [address] [place], [place] [phone] Malignant neoplasm of unspecified part of left [...] Description 02/18/2026 10:30 AM EDT Office Visit [facility] Hematology Oncology [address] [place] [phone] Lashanda Mcgill, [address] [place] [address] documented as of this encounter Procedures Procedure Name Priority Date/Time Associated Diagnosis Comments COMPLETE BLOOD COUNT Routine 11/06/2025 7:41 AM EST Malignant neoplasm of unspecified part of left bronchus or lung (CMS/HCC V24, CMS/HCC V28) Chronic respiratory failure with hypercapnia (CMS/HCC V24, CMS/HCC V28) BASIC METABOLIC PANEL Routine 11/06/2025 7:41 AM EST Malignant neoplasm of unspecified part of left bronchus or lung (CMS/HCC V24, CMS/HCC V28) Chronic respiratory failure with hypercapnia (CMS/HCC V24, CMS/HCC V28) documented in this encounter Results * (ABNORMAL) Basic metabolic panel (11/06/2025 7:41 AM EST) Sodium 139 133 - 145 mmol/L 11/06/2025 12:07 PM [facility] Potassium 3.5 3.5 - 5.5 mmol/L 11/06/2025 12:07 PM [facility] Chloride 91(L) 96 - 110 mmol/L 11/06/2025 12:07 PM [facility] CO2 >40(HH) 21 - 32 mmol/L 11/06/2025 12:07 PM [facility] Anion Gap <8 3 - 11 11/06/2025 12:07 PM [facility] Glucose 79 70 - 100 mg/dL 11/06/2025 12:07 PM [facility] BUN 12 5 - 25 mg/dL 11/06/2025 12:07 PM [facility] Creatinine 0.97 0.50 - 1.10 mg/dL 11/06/2025 12:07 PM [facility] eGFR 63 >=60 mL/min/1. 73m2 11/06/2025 12:07 PM [facility] Comment:Calculation based on the Chronic Kidney Disease Epidemiology Collaboration (CKD-EPI) equation refit without adjustment for race. BUN/Creatinine Ratio 12.4 11/06/2025 12:07 PM [facility] Calcium 8.8 8.5 - 10.5 mg/dL 11/06/2025 12:07 PM [facility] Blood Venous blood specimen / Unknown Venipuncture / Unknown 11/06/2025 7:41 AM EST 11/06/2025 10:49 AM EST us Janice Núñez MD LAB BLOOD ORDERABLES Final Resul t [facility] [address] [place] [address], * (ABNORMAL) Complete blood count (11/06/2025 7:41 AM EST) WBC 7.5 4.8 - 10.8 K/mcL LAB HEMETOLOGY METHOD 11/06/2025 11:10 AM [facility] RBC 3.00(L) 3.80 - 4.80 M/mcL LAB HEMETOLOGY METHOD 11/06/2025 11:10 AM [facility] Hemoglobin 7.8(L) 11.5 - 16.0 g/dL LAB HEMETOLOGY METHOD 11/06/2025 11:10 AM [facility] Hematocrit 27.6(L) 35.0 - 47.0 % LAB HEMETOLOGY METHOD 11/06/2025 11:10 AM [facility] MCV 92.3 79.0 - 98.0 FL LAB HEMETOLOGY METHOD 11/06/2025 11:10 AM [facility] MCH 26.1(L) 27.0 - 32.0 pcg LAB HEMETOLOGY METHOD 11/06/2025 11:10 AM [facility] MCHC 28.3(L) 32.0 - 37.0 g/dL LAB HEMETOLOGY METHOD 11/06/2025 11:10 AM [facility] RDW 15.9(H) 11.0 - 15.0 % LAB HEMETOLOGY METHOD 11/06/2025 11:10 AM EST [facility] Platelets 465(H) 130 - 400 K/mcL LAB HEMETOLOGY METHOD 11/06/2025 11:10 AM EST [facility] MPV 9.8 7.0 - 11.0 FL LAB HEMETOLOGY METHOD 11/06/2025 11:10 AM EST [facility] NRBC 0.0 <1.0 % LAB HEMETOLOGY METHOD 11/06/2025 11:10 AM EST [facility] NRBC Absolute 0.00 <0.10 K/mcL LAB HEMETOLOGY METHOD 11/06/2025 11:10 AM [facility] Blood Venous blood specimen / Unknown Venipuncture / Unknown 11/06/2025 7:41 AM EST 11/06/2025 10:49 AM EST us Janice Núñez MD LAB BLOOD ORDERABLES Final Resul t [facility] [address] [place] [address], documented in this encounter Visit Diagnoses Diagnosis Malignant neoplasm of unspecified part of left bronchus or lung (CMS/HCC V24, CMS/HCC V28) Chronic respiratory failure with hypercapnia (CMS/HCC V24, CMS/HCC V28) documented in this encounter Additional Health Concerns Assessment Noted Time PHQ-9 Depression Total Score: 1 07/19/20 25 5:04 PM EDT documented as of this encounter Care Teams Burning Plant Operator Relationship Specialty Start Date End Date Kinjal Barron FNP [address] [place] [phone] PCP - General Family Medicine 03/06/25 documented as of this encounter
--- OUTSIDE RECORDS SUMMARY | 2025-11-10 01:51 | XMS_ITS | Encounter Summary ---
Author Organization [facility] Address [address] [place] [address] Care Team Providers Care Bridge Expert Name Role Phone Kinjal Barron ANESTHESIOLOGIST Primary Care Provid er Encounter Details Date Type Department Care Team (Late st Contact Info) Description 10/29/2025 Lab Requisition [facility] - Main Lab [address] [place] [address] Janice Núñez MD [address] [place], [place] [phone] Malignant neoplasm of unspecified part of left [...] Description 02/18/2026 10:30 AM EDT Office Visit [facility] Hematology Oncology [address] [place] [phone] Lashanda Mcgill, [address] [place] [address] documented as of this encounter Procedures Procedure Name Priority Date/Time Associated Diagnosis Comments COMPLETE BLOOD COUNT Routine 10/30/2025 7:18 AM EST Malignant neoplasm of unspecified part of left bronchus or lung (CMS/HCC V24, CMS/HCC V28) Chronic respiratory failure with hypercapnia (CMS/HCC V24, CMS/HCC V28) BASIC METABOLIC PANEL Routine 10/30/2025 7:18 AM EST Malignant neoplasm of unspecified part of left bronchus or lung (CMS/HCC V24, CMS/HCC V28) Chronic respiratory failure with hypercapnia (CMS/HCC V24, CMS/HCC V28) documented in this encounter Results * (ABNORMAL) Basic metabolic panel (10/30/2025 7:18 AM EST) Sodium 141 133 - 145 mmol/L 10/30/2025 11:53 AM [facility] Potassium 3.6 3.5 - 5.5 mmol/L 10/30/2025 11:53 AM [facility] Chloride 92(L) 96 - 110 mmol/L 10/30/2025 11:53 AM [facility] CO2 >40(HH) 21 - 32 mmol/L 10/30/2025 11:53 AM [facility] Anion Gap <9 3 - 11 10/30/2025 11:53 AM [facility] Glucose 72 70 - 100 mg/dL 10/30/2025 11:53 AM [facility] BUN 19 5 - 25 mg/dL 10/30/2025 11:53 AM [facility] Creatinine 0.88 0.50 - 1.10 mg/dL 10/30/2025 11:53 AM [facility] eGFR 70 >=60 mL/min/1. 73m2 10/30/2025 11:53 AM [facility] Comment:Calculation based on the Chronic Kidney Disease Epidemiology Collaboration (CKD-EPI) equation refit without adjustment for race. BUN/Creatinine Ratio 21.6 10/30/2025 11:53 AM [facility] Calcium 8.9 8.5 - 10.5 mg/dL 10/30/2025 11:53 AM [facility] Blood Venous blood specimen / Unknown Venipuncture / Unknown 10/30/2025 7:18 AM EST 10/30/2025 10:32 AM EST us Janice Núñez MD LAB BLOOD ORDERABLES Final Resul t [facility] [address] [place] [address], * (ABNORMAL) Complete blood count (10/30/2025 7:18 AM EST) WBC 8.5 4.8 - 10.8 K/mcL LAB HEMETOLOGY METHOD 10/30/2025 10:54 AM [facility] RBC 3.00(L) 3.80 - 4.80 M/mcL LAB HEMETOLOGY METHOD 10/30/2025 10:54 AM [facility] Hemoglobin 7.9(L) 11.5 - 16.0 g/dL LAB HEMETOLOGY METHOD 10/30/2025 10:54 AM [facility] Hematocrit 27.5(L) 35.0 - 47.0 % LAB HEMETOLOGY METHOD 10/30/2025 10:54 AM [facility] MCV 92.9 79.0 - 98.0 FL LAB HEMETOLOGY METHOD 10/30/2025 10:54 AM [facility] MCH 26.7(L) 27.0 - 32.0 pcg LAB HEMETOLOGY METHOD 10/30/2025 10:54 AM [facility] MCHC 28.7(L) 32.0 - 37.0 g/dL LAB HEMETOLOGY METHOD 10/30/2025 10:54 AM [facility] RDW 15.6(H) 11.0 - 15.0 % LAB HEMETOLOGY METHOD 10/30/2025 10:54 AM EST [facility] Platelets 404(H) 130 - 400 K/mcL LAB HEMETOLOGY METHOD 10/30/2025 10:54 AM EST [facility] MPV 9.6 7.0 - 11.0 FL LAB HEMETOLOGY METHOD 10/30/2025 10:54 AM EST [facility] NRBC 0.0 <1.0 % LAB HEMETOLOGY METHOD 10/30/2025 10:54 AM EST [facility] NRBC Absolute 0.00 <0.10 K/mcL LAB HEMETOLOGY METHOD 10/30/2025 10:54 AM [facility] Blood Venous blood specimen / Unknown Venipuncture / Unknown 10/30/2025 7:18 AM EST 10/30/2025 10:32 AM EST us Janice Núñez MD LAB BLOOD ORDERABLES Final Resul t [facility] [address] [place] [address], documented in this encounter Visit Diagnoses Diagnosis Malignant neoplasm of unspecified part of left bronchus or lung (CMS/HCC V24, CMS/HCC V28) Chronic respiratory failure with hypercapnia (CMS/HCC V24, CMS/HCC V28) documented in this encounter Additional Health Concerns Assessment Noted Time PHQ-9 Depression Total Score: 1 07/19/20 25 5:04 PM EDT documented as of this encounter Care Teams Bridge Expert Relationship Specialty Start Date End Date Kinjal Barron FNP [address] [place] [phone] PCP - General Family Medicine 03/06/25 documented as of this encounter
--- OUTSIDE RECORDS SUMMARY | 2025-11-10 01:51 | XMS_ITS | Clinical Summary ---
Author Organization [facility] Prior to 04/27/[address] [place] [id number] Care Team Providers Care Sawmill Production Worker Name Role Phone Debra Ji MD Primary Care Provider [phone] Allergies Active Allergy Reactions Criticality Noted Date [...] 0 Active zoster vaccine live, PF, (ZOSTAVAX) 02298 UNT/0.65ML injection Inject 0.65 mL under the [...] age to complete this topic Care Teams Sawmill Production Worker Relationship Specialty Start Date End Date Debra Ji MD PCP - General Internal Medicine 06/27/17
--- OUTSIDE RECORDS SUMMARY | 2025-11-10 01:51 | XMS_ITS | Encounter Summary ---
Author Organization [facility] Address [address] [place] [address] Care Team Providers Care Program Rep Name Role Phone Kinjal Barron MACHINE GUNNER Primary Care Provid er Encounter Details Date Type Department Care Team (Late st Contact Info) Description 11/09/2024 Lab Requisition [facility] - Main Lab [address] [place] [address] Janice Núñez MD [address] [place], [place] [phone] Chronic obstructive pulmonary disease, unspecified (CMS/HCC V24, [...] Description 02/18/2026 10:30 AM EDT Office Visit [facility] Hematology Oncology [address] [place] [phone] Lashanda Mcgill, DO [address] [place] [address] documented as of this encounter Procedures Procedure [...] mmol/L LAB CHEMISTRY METHOD 11/12/2024 4:30 PM [facility] Potassium 4.1 3.5 - 5.5 mmol/L LAB CHEMISTRY METHOD 11/12/2024 4:30 PM [facility] Chloride 92(L) 96 - 110 mmol/L LAB CHEMISTRY METHOD 11/12/2024 4:30 PM [facility] CO2 43(HH) 21 - 32 mmol/L LAB CHEMISTRY METHOD 11/12/2024 4:30 PM [facility] Anion Gap 6 3 - 11 LAB CHEMISTRY METHOD 11/12/2024 4:30 PM [facility] Glucose 90 70 - 100 mg/dL LAB CHEMISTRY METHOD 11/12/2024 4:30 PM [facility] BUN 11 5 - 25 mg/dL LAB CHEMISTRY METHOD 11/12/2024 4:30 PM [facility] Creatinine 0.98 0.50 - 1.10 mg/dL LAB CHEMISTRY METHOD 11/12/2024 4:30 PM [facility] eGFR 62 >=60 mL/min/1. 73m2 LAB CHEMISTRY METHOD 11/12/2024 4:30 PM EST [facility] Comment:Calculation based on the Chronic Kidney Disease Epidemiology Collaboration (CKD-EPI) equation refit without adjustment for race. BUN/Creatinine Ratio 11.2 LAB CHEMISTRY METHOD 11/12/2024 4:30 PM EST [facility] Calcium 9.3 8.5 - 10.5 mg/dL LAB CHEMISTRY METHOD 11/12/2024 4:30 PM [facility] Blood Venous blood specimen / Unknown Venipuncture / Unknown 11/12/2024 8:41 AM EST 11/12/2024 11:35 AM EST us Janice Núñez MD LAB BLOOD ORDERABLES Final Resul t [facility] [address] [place] [address], * (ABNORMAL) Complete blood count (11/12/2024 8:41 AM EST) WBC 6.1 4.8 - 10.8 K/mcL LAB HEMETOLOGY METHOD 11/12/2024 11:55 AM [facility] RBC 3.50(L) 3.80 - 4.80 M/mcL LAB HEMETOLOGY METHOD 11/12/2024 11:55 AM [facility] Hemoglobin 9.2(L) 11.5 - 16.0 g/dL LAB HEMETOLOGY METHOD 11/12/2024 11:55 AM [facility] Hematocrit 32.4(L) 35.0 - 47.0 % LAB HEMETOLOGY METHOD 11/12/2024 11:55 AM [facility] MCV 93.9 79.0 - 98.0 FL LAB HEMETOLOGY METHOD 11/12/2024 11:55 AM [facility] MCH 26.7(L) 27.0 - 32.0 pcg LAB HEMETOLOGY METHOD 11/12/2024 11:55 AM EST [facility] MCHC 28.4(L) 32.0 - 37.0 g/dL LAB HEMETOLOGY METHOD 11/12/2024 11:55 AM [facility] RDW 14.4 11.0 - 15.0 % LAB HEMETOLOGY METHOD 11/12/2024 11:55 AM [facility] Platelets 435(H) 130 - 400 K/mcL LAB HEMETOLOGY METHOD 11/12/2024 11:55 AM [facility] MPV 9.7 7.0 - 11.0 FL LAB HEMETOLOGY METHOD 11/12/2024 11:55 AM [facility] NRBC 0.0 <1.0 % LAB HEMETOLOGY METHOD 11/12/2024 11:55 AM [facility] NRBC Absolute 0.00 <0.10 K/mcL LAB HEMETOLOGY METHOD 11/12/2024 11:55 AM [facility] Blood Venous blood specimen / Unknown Venipuncture / Unknown 11/12/2024 8:41 AM EST 11/12/2024 11:35 AM EST us Janice Núñez MD LAB BLOOD ORDERABLES Final Resul t [facility] [address] [place] [address], documented in this encounter Visit Diagnoses Diagnosis [...] documented as of this encounter Care Teams Program Rep Relationship Specialty Start Date End Date Kinjal Barron FNP [address] [place] [phone] PCP - General Family Medicine 03/06/25 documented as of this encounter
--- OUTSIDE RECORDS SUMMARY | 2025-11-10 01:51 | XMS_ITS ---
Author Organization [facility] Address [address] [place] [address] Phone Care Team Providers Care Hammer Setter Name Role Phone Rabia Barrongeovanny Jacqueline CLASSIFIER TENDER Primary Care Provid er Active Problems Problem Noted Date Diagnosed Date Acute headache 09/06/2025 Acute on chronic respiratory failure with hypoxia and hypercapnia 07/06/2025 Squamous cell carcinoma of left lung 04/30/2025 Age-related osteoporosis wit h current pathological fracture of right femur with delayed healing 04/24/2025 Tachycardia 04/24/2025 Lung nodule 04/03/2025 Decreased hearing 01/09/2025 Urinary incontinence 01/09/2025 Seizure 12/23/2024 Anemia 12/14/2024 Atopic dermatitis 10/06/2024 Cor pulmonale, acute 10/06/2024 Acidosis 10/06/2024 Pneumonia 10/06/2024 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 09/21/2024 Overview (04/24/2025): IVAP Acute on chronic diastolic (congestive) heart fa ilure 09/21/2024 Unspecified age-related cataract 09/21/2024 Unspecified atrial flutter 09/21/2024 Congestive heart failure 08/23/2024 Post-traumatic stress disorder, unspecified 07/30 Somatic syndrome finding 08/23/2024 Pleuritic pain 11/23/2023 Primary localized osteoarthrosis of ankle and fo ot 09/08/2023 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 7 Pulmonary emphysema 07/29/2017 Thrombocytosis 06/27/2017 Dependence on supplemental oxygen 06/15/2017 Bipolar disorder 06/10/2017 Gastroesophageal reflux disease without esophagi tis 06/08/2017 Insomnia 06/08/2017 Retinal hemorrhage 06/08/2017 Current Treatment and Therapy Plans PACLitaxel / CARBOplatin - Non-Small Cell Lung Cancer / Thymomas and Thymic Carcinomas* Plan Start Date:06/25/2025 Plan Provider:Lashanda Mcgill DO Linked Problems Squamous cell carcinoma of l eft lung ([facility]/HCC V24, [facility] V28) Treatment Medications Current Day [...] Goal Episode Provider 05/28/2025 06/18/2025 Lung Curative Katya Barnes MD * Linked Problems Treatment Courses* Course 1 [...]
--- OUTSIDE RECORDS SUMMARY | 2025-11-10 01:51 | XMS_ITS | Encounter Summary ---
Author Organization [facility] Address [address] [place] [address] Care Team Providers Care Benzol Operator Name Role Phone Kinjal Barron FLIGHT PHYSICIAN Primary Care Provid er Encounter Details Date Type Department Care Team (Late st Contact Info) Description 11/03/2024 Lab Requisition [facility] - Main Lab [address] [place] [address] Janice Núñez MD [address] [place], [place] [phone] Chronic obstructive pulmonary disease, unspecified (CMS/HCC V24, [...] Description 02/18/2026 10:30 AM EDT Office Visit [facility] Hematology Oncology [address] [place] [phone] Lashanda Mcgill, DO [address] [place] [address] documented as of this encounter Procedures Procedure Name Priority Date/Time Associated Diagnosis Comments COMPLETE BLOOD COUNT Routine 11/05/2024 8:13 AM EST Chronic obstructive pulmonary disease, unspecified (CMS/HCC) BASIC METABOLIC PANEL Routine 11/05/2024 8:13 AM EST Chronic obstructive pulmonary disease, unspecified ([facility]/HCC) documented in this encounter Results * (ABNORMAL) Basic metabolic panel (11/05/2024 8:13 AM EST) Sodium 141 133 - 145 mmol/L LAB CHEMISTRY METHOD 11/05/2024 11:51 AM [facility] Potassium 4.1 3.5 - 5.5 mmol/L LAB CHEMISTRY METHOD 11/05/2024 11:51 AM [facility] Chloride 98 96 - 110 mmol/L LAB CHEMISTRY METHOD 11/05/2024 11:51 AM [facility] CO2 43(HH) 21 - 32 mmol/L LAB CHEMISTRY METHOD 11/05/2024 11:51 AM [facility] Anion Gap 0(L) 3 - 11 LAB CHEMISTRY METHOD 11/05/2024 11:51 AM [facility] Glucose 95 70 - 100 mg/dL LAB CHEMISTRY METHOD 11/05/2024 11:51 AM [facility] BUN 12 5 - 25 mg/dL LAB CHEMISTRY METHOD 11/05/2024 11:51 AM [facility] Creatinine 0.97 0.50 - 1.10 mg/dL LAB CHEMISTRY METHOD 11/05/2024 11:51 AM [facility] eGFR 63 >=60 mL/min/1. 73m2 LAB CHEMISTRY METHOD 11/05/2024 11:51 AM [facility] Comment:Calculation based on the Chronic Kidney Disease Epidemiology Collaboration (CKD-EPI) equation refit without adjustment for race. BUN/Creatinine Ratio 12.4 LAB CHEMISTRY METHOD 11/05/2024 11:51 AM [facility] Calcium 9.0 8.5 - 10.5 mg/dL LAB CHEMISTRY METHOD 11/05/2024 11:51 AM [facility] Blood Venous blood specimen / Unknown Venipuncture / Unknown 11/05/2024 8:13 AM EST 11/05/2024 10:37 AM EST us Janice Núñez MD LAB BLOOD ORDERABLES Final Resul t [facility] [address] [place] [address], * (ABNORMAL) Complete blood count (11/05/2024 8:13 AM EST) WBC 5.7 4.8 - 10.8 K/mcL LAB HEMETOLOGY METHOD 11/05/2024 11:00 AM [facility] RBC 3.70(L) 3.80 - 4.80 M/mcL LAB HEMETOLOGY METHOD 11/05/2024 11:00 AM [facility] Hemoglobin 9.8(L) 11.5 - 16.0 g/dL LAB HEMETOLOGY METHOD 11/05/2024 11:00 AM [facility] Hematocrit 34.3(L) 35.0 - 47.0 % LAB HEMETOLOGY METHOD 11/05/2024 11:00 AM [facility] MCV 93.7 79.0 - 98.0 FL LAB HEMETOLOGY METHOD 11/05/2024 11:00 AM [facility] MCH 26.8(L) 27.0 - 32.0 pcg LAB HEMETOLOGY METHOD 11/05/2024 11:00 AM [facility] MCHC 28.6(L) 32.0 - 37.0 g/dL LAB HEMETOLOGY METHOD 11/05/2024 11:00 AM [facility] RDW 14.5 11.0 - 15.0 % LAB HEMETOLOGY METHOD 11/05/2024 11:00 AM [facility] Platelets 429(H) 130 - 400 K/mcL LAB HEMETOLOGY METHOD 11/05/2024 11:00 AM [facility] MPV 9.5 7.0 - 11.0 FL LAB HEMETOLOGY METHOD 11/05/2024 11:00 AM [facility] NRBC 0.0 <1.0 % LAB HEMETOLOGY METHOD 11/05/2024 11:00 AM [facility] NRBC Absolute 0.00 <0.10 K/mcL LAB HEMETOLOGY METHOD 11/05/2024 11:00 AM [facility] Blood Venous blood specimen / Unknown Venipuncture / Unknown 11/05/2024 8:13 AM EST 11/05/2024 10:37 AM EST us Janice Núñez MD LAB BLOOD ORDERABLES Final Resul t [facility] [address] [place] [address], documented in this encounter Visit Diagnoses Diagnosis [...] documented as of this encounter Care Teams Benzol Operator Relationship Specialty Start Date End Date Kinjal Barron FNP [address] [place] [phone] PCP - General Family Medicine 03/06/25 documented as of this encounter
--- OUTSIDE RECORDS SUMMARY | 2025-11-10 01:51 | XMS_ITS | Encounter Summary ---
Author Organization [facility] Address [address] [place] [address] Care Team Providers Care Hand Alterations Seamstress Name Role Phone Kinjal Barron PLASTIC PRODUCTION MACHINE SETTER Primary Care Provid er Encounter Details Date Type Department Care Team (Late st Contact Info) Description 10/15/2024 Lab Requisition [facility] - Main Lab [address] [place] [address] Alley San NP [address] [facility] [place] [address] Chronic obstructive pulmonary disease, unspecified (CMS/HCC V24, [...] [facility] Hematology Oncology [address] [place] [address] Lashanda Mcgill, DO [address] [place] [address] documented as of this encounter Procedures Procedure Name Priority Date/Time Associated Diagnosis Comments COMPLETE BLOOD COUNT Routine 10/15/2024 8:35 AM EST Chronic obstructive pulmonary disease, unspecified (CMS/HCC) BASIC METABOLIC PANEL Routine 10/15/2024 8:35 AM EST Chronic obstructive pulmonary disease, unspecified ([facility]/HCC) documented in this encounter Results * (ABNORMAL) Basic metabolic panel (10/15/2024 8:35 AM EST) Sodium 140 133 - 145 mmol/L LAB CHEMISTRY METHOD 10/15/2024 1:16 PM [facility] Potassium 3.8 3.5 - 5.5 mmol/L LAB CHEMISTRY METHOD 10/15/2024 1:16 PM [facility] Chloride 90(L) 96 - 110 mmol/L LAB CHEMISTRY METHOD 10/15/2024 1:16 PM [facility] CO2 40(H) 21 - 32 mmol/L LAB CHEMISTRY METHOD 10/15/2024 1:16 PM [facility] Anion Gap 10 3 - 11 LAB CHEMISTRY METHOD 10/15/2024 1:16 PM [facility] Glucose 81 70 - 100 mg/dL LAB CHEMISTRY METHOD 10/15/2024 1:16 PM [facility] BUN 15 5 - 25 mg/dL LAB CHEMISTRY METHOD 10/15/2024 1:16 PM [facility] Creatinine 1.00 0.50 - 1.10 mg/dL LAB CHEMISTRY METHOD 10/15/2024 1:16 PM [facility] eGFR 61 >=60 mL/min/1. 73m2 LAB CHEMISTRY METHOD 10/15/2024 1:16 PM EST [facility] Comment:Calculation based on the Chronic Kidney Disease Epidemiology Collaboration (CKD-EPI) equation refit without adjustment for race. BUN/Creatinine Ratio 15.0 LAB CHEMISTRY METHOD 10/15/2024 1:16 PM EST [facility] Calcium 9.6 8.5 - 10.5 mg/dL LAB CHEMISTRY METHOD 10/15/2024 1:16 PM [facility] Blood Venous blood specimen / Unknown Venipuncture / Unknown 10/15/2024 8:35 AM EST 10/15/2024 11:13 AM EST Alley San NP LAB BLOOD ORDERABLES Final Re sult [facility] [address] [place] [address], * (ABNORMAL) Complete blood count (10/15/2024 8:35 AM EST) WBC 8.3 4.8 - 10.8 K/mcL LAB HEMETOLOGY METHOD 10/15/2024 12:51 PM [facility] RBC 3.80 3.80 - 4.80 M/mcL LAB HEMETOLOGY METHOD 10/15/2024 12:51 PM [facility] Hemoglobin 10.7(L) 11.5 - 16.0 g/dL LAB HEMETOLOGY METHOD 10/15/2024 12:51 PM [facility] Hematocrit 37.8 35.0 - 47.0 % LAB HEMETOLOGY METHOD 10/15/2024 12:51 PM [facility] MCV 98.4(H) 79.0 - 98.0 FL LAB HEMETOLOGY METHOD 10/15/2024 12:51 PM [facility] MCH 27.9 27.0 - 32.0 pcg LAB HEMETOLOGY METHOD 10/15/2024 12:51 PM EST [facility] MCHC 28.3(L) 32.0 - 37.0 g/dL LAB HEMETOLOGY METHOD 10/15/2024 12:51 PM [facility] RDW 15.2(H) 11.0 - 15.0 % LAB HEMETOLOGY METHOD 10/15/2024 12:51 PM [facility] Platelets 474(H) 130 - 400 K/mcL LAB HEMETOLOGY METHOD 10/15/2024 12:51 PM [facility] MPV 9.6 7.0 - 11.0 FL LAB HEMETOLOGY METHOD 10/15/2024 12:51 PM [facility] NRBC 0.0 <1.0 % LAB HEMETOLOGY METHOD 10/15/2024 12:51 PM [facility] NRBC Absolute 0.00 <0.10 K/mcL LAB HEMETOLOGY METHOD 10/15/2024 12:51 PM [facility] Blood Venous blood specimen / Unknown Venipuncture / Unknown 10/15/2024 8:35 AM EST 10/15/2024 11:13 AM EST Alley San ENVIRONMENTAL AIDE LAB BLOOD ORDERABLES Final Re sult [facility] [address] [place] [address], documented in this encounter Visit Diagnoses Diagnosis [...] documented as of this encounter Care Teams Hand Alterations Seamstress Relationship Specialty Start Date End Date Kinjal Barron FNP [address] [place] [phone] PCP - General Family Medicine 03/06/25 documented as of this encounter
--- OUTSIDE RECORDS SUMMARY | 2025-11-10 01:51 | XMS_ITS | Encounter Summary ---
Author Organization [facility] Address [address] [place] [address] Care Team Providers Care Molecular Biologist Name Role Phone Kinjal Barron DYNAMO REPAIRER Primary Care Provid er Encounter Details Date Type Department Care Team (Late st Contact Info) Description 10/21/2025 Lab Requisition [facility] - Main Lab [address] [place] [address] Janice Núñez MD [address] [place], [place] [phone] Anemia, unspecified; Essential (primary) hypertension; Malignant neoplasm of unspecified part of unspecified [...] Description 02/18/2026 10:30 AM EDT Office Visit [facility] Hematology Oncology [address] [place] [phone] Lashanda Mcgill DO [address] [place] [address] documented as of this encounter Procedures Procedure Name Priority Date/Time Associated Diagnosis Comments IRON AND TIBC Routine 10/21/2025 8:45 AM EST Anemia, unspecified Essential (primary) hypertension Malignant neoplasm of unspecified part of unspecified bronchus or lung (CMS/HCC V24, CMS/HCC V28) COMPLETE BLOOD COUNT Routine 10/21/2025 8:45 AM EST Anemia, unspecified Essential (primary) hypertension Malignant neoplasm of unspecified part of unspecified bronchus or lung (CMS/HCC V24, CMS/HCC V28) FOLATE Routine 10/21/2025 8:45 AM EST Anemia, unspecified Essential (primary) hypertension Malignant neoplasm of unspecified part of unspecified bronchus or lung (CMS/HCC V24, CMS/HCC V28) FERRITIN Routine 10/21/2025 8:45 AM EST Anemia, unspecified Essential (primary) hypertension Malignant neoplasm of unspecified part of unspecified bronchus or lung (CMS/HCC V24, CMS/HCC V28) VITAMIN B12 Routine 10/21/2025 8:45 AM EST Anemia, unspecified Essential (primary) hypertension Malignant neoplasm of unspecified part of unspecified bronchus or lung (CMS/HCC V24, CMS/HCC V28) BASIC METABOLIC PANEL Routine 10/21/2025 8:45 AM EST Anemia, unspecified Essential (primary) hypertension Malignant neoplasm of unspecified part of unspecified bronchus or lung (CMS/HCC V24, CMS/HCC V28) documented in this encounter Results * Folate (10/21/2025 8:45 AM EST) Folate 18.8 >=5.4 ng/ml 10/21/2025 11:30 AM EST [facility] Blood Venous blood specimen / Unknown Venipuncture / Unknown 10/21/2025 8:45 AM EST 10/21/2025 10:33 AM EST [facility] - 10/21/2025 11:30 AM EST Over the counter supplements containing high doses of biotin may interfere with this assay. If interference is suspected, patients shoud be retested after refraining from biotin supplements for 72 hours. us Janice Núñez MD LAB BLOOD ORDERABLES Final Resul t Performing Organization Address City/[facility] [address]/ZIP Co de Phone Number [facility] [address] [place] [address], [place] [phone] * Vitamin B12 (10/21/2025 8:45 AM EST) [facility] Vitamin B-12 631 211 - 911 pcg/mL 10/21/2025 11:30 AM EST [facility] Blood Venous blood specimen / Unknown Venipuncture / Unknown 10/21/2025 8:45 AM EST 10/21/2025 10:33 AM EST us Janice Núñez MD LAB BLOOD ORDERABLES Final Resul t Performing Organization Address [facility] [address]/[facility] Co de Phone Number [facility] [address] [place] [address], [place] [phone] * Ferritin (10/21/2025 8:45 AM EST) [facility] Ferritin 11 7 - 271 ng/mL 10/21/2025 11:30 AM EST [facility] Blood Venous blood specimen / Unknown Venipuncture / Unknown 10/21/2025 8:45 AM EST 10/21/2025 10:33 AM EST us Janice Núñez MD LAB BLOOD ORDERABLES Final Resul t Performing Organization Address [facility] [address]/ZIP Co de Phone Number [facility] [address] [place] [address], [place] [phone] * (ABNORMAL) Iron and TIBC (10/21/2025 8:45 AM EST) [facility] Iron 10(L) 40 - 150 mcg/dL 10/21/2025 11:32 AM EST [facility] TIBC 392 250 - 450 mcg/dL 10/21/2025 11:32 AM [facility] Iron Saturation 3(L) 15 - 50 % 11:32 AM [facility] Blood Venous blood specimen / Unknown Venipuncture / Unknown 10/21/2025 8:45 AM EST 10/21/2025 10:33 AM EST us Janice Núñez MD LAB BLOOD ORDERABLES Final Resul t [facility] [address] [place] [address], * (ABNORMAL) Basic metabolic panel (10/21/2025 8:45 AM EST) Sodium 137 133 - 145 mmol/L 10/21/2025 11:34 AM [facility] Potassium 3.8 3.5 - 5.5 mmol/L 10/21/2025 11:34 AM [facility] Chloride 90(L) 96 - 110 mmol/L 10/21/2025 11:34 AM [facility] CO2 >40(HH) 21 - 32 mmol/L 10/21/2025 11:34 AM [facility] Anion Gap <7 3 - 11 10/21/2025 11:34 AM [facility] Glucose 120(H) 70 - 100 mg/dL 10/21/2025 11:34 AM [facility] BUN 11 5 - 25 mg/dL 10/21/2025 11:34 AM [facility] Creatinine 0.84 0.50 - 1.10 mg/dL 10/21/2025 11:34 AM [facility] eGFR 74 >=60 mL/min/1. 73m2 10/21/2025 11:34 AM [facility] Comment:Calculation based on the Chronic Kidney Disease Epidemiology Collaboration (CKD-EPI) equation refit without adjustment for race. BUN/Creatinine Ratio 13.1 10/21/2025 11:34 AM [facility] Calcium 8.3(L) 8.5 - 10.5 mg/dL 10/21/2025 11:34 AM [facility] Blood Venous blood specimen / Unknown Venipuncture / Unknown 10/21/2025 8:45 AM EST 10/21/2025 10:33 AM EST us Janice Núñez MD LAB BLOOD ORDERABLES Final Resul t [facility] [address] [place] [address], [place] [phone] * (ABNORMAL) Complete blood count (10/21/2025 8:45 AM EST) WBC 7.8 4.8 - 10.8 K/mcL LAB HEMETOLOGY METHOD 10/21/2025 10:58 AM [facility] RBC 3.10(L) 3.80 - 4.80 M/mcL LAB HEMETOLOGY METHOD 10/21/2025 10:58 AM [facility] Hemoglobin 9.4(L) 11.5 - 16.0 g/dL LAB HEMETOLOGY METHOD 10/21/2025 10:58 AM [facility] Hematocrit 30.0(L) 35.0 - 47.0 % LAB HEMETOLOGY METHOD 10/21/2025 10:58 AM [facility] MCV 97.4 79.0 - 98.0 FL LAB HEMETOLOGY METHOD 10/21/2025 10:58 AM [facility] MCH 30.5 27.0 - 32.0 pcg LAB HEMETOLOGY METHOD 10/21/2025 10:58 AM [facility] MCHC 31.3(L) 32.0 - 37.0 g/dL LAB HEMETOLOGY METHOD 10/21/2025 10:58 AM EST [facility] RDW 15.1(H) 11.0 - 15.0 % LAB HEMETOLOGY METHOD 10/21/2025 10:58 AM [facility] Platelets 446(H) 130 - 400 K/mcL LAB HEMETOLOGY METHOD 10/21/2025 10:58 AM EST [facility] MPV 9.4 7.0 - 11.0 FL LAB HEMETOLOGY METHOD 10/21/2025 10:58 AM EST [facility] NRBC 0.0 <1.0 % LAB HEMETOLOGY METHOD 10/21/2025 10:58 AM [facility] NRBC Absolute 0.00 <0.10 K/mcL LAB HEMETOLOGY METHOD 10/21/2025 10:58 AM [facility] Blood Venous blood specimen / Unknown Venipuncture / Unknown 10/21/2025 8:45 AM EST 10/21/2025 10:33 AM EST Janice Núñez MD LAB BLOOD ORDERABLES Final Resul t [facility] [address] [place] [address], documented in this encounter Visit Diagnoses Diagnosis Anemia, unspecified Essential (primary) hypertension Unspecified essential hypertension Malignant neoplasm of unspecified part of unspecified bronchus or lung (CMS/HCC V24, CMS/HCC V28) documented in this encounter Additional Health Concerns Assessment Noted Time PHQ-9 Depression Total Score: 1 07/19/20 25 5:04 PM EDT documented as of this encounter Care Teams Molecular Biologist Relationship Specialty Start Date End Date Kinjal Barron FNP [address] [place] [phone] PCP - General Family Medicine 03/06/25 documented as of this encounter
--- OUTSIDE RECORDS SUMMARY | 2025-11-10 01:52 | XMS_ITS | Data Portability ---
Author Organization [facility] [employer] [facility], Main Office Address [address] [place] [address] Care Team Providers Care Oil Well Directional Surveyor Name Role Phone [facility] OTHER Assessment Encounter Date Assessment Date Assessment LastModified by Organization Details LastModified Time 12/17/2024 12/17/2024 [facility] 12/13: Na 136-K 3.8-Bun 13-Cr 0.7-wbc 7.5-hgb 8.4-hct 28.5-plt 510 [email or web address] Not available 12/23/2024 14:46:10 12/25/2024 12/25/2024 Hosp [facility] 12/13: Na 136-K 3.8-Bun 13-Cr 0.7-wbc 7.5-hgb 8.4-hct 28.5-plt 510 [email or web address] Not available 12/26/2024 07:11:06 Plan of Treatment [...] Organization Details Recorded Time Depressi ve disorder 59440049 Active BLAS Rollins [address], [address], [place], [address] , [facility] [place] 5 10:21:22 Acute exacerba tion of chronic obstruct sophie pulmonar y disease 220863219 Completed 12/20/2024 Not Available [facility] 5 09:41:59 Gastroes ophageal reflux disease 843798329 Completed 12/23/2024 BLAS GONZÁLES [address], [address], [place], [address] , [facility] 5 14:16:13 Bipolar disorder 00495944 Completed 12/20/2024 BLAS GONZÁLES [address], [address], [place], [address] , [facility] 5 14:04:18 Insomnia 148704458 Completed 12/20/2024 Not Available [facility] 5 09:42:54 Tachycar fiordaliza 0248562 Completed 12/23/2024 BLAS GONZÁLES [address], [address], [place], [address] , [facility] 5 13:43:54 Obesity 302945782 Completed 202012/20/2024 Not Available [facility] 5 09:42:44 Dyspnea 018999562 Completed 202012/20/2024 Not Available [facility] 5 09:42:45 Acute on chronic hypercap juan respirat ory failure 34832157955 06 Completed 202012/20/2024 Not Available [facility] 5 09:42:46 Late effect of accident al fall 858388308 Completed 202012/20/2024 Not Available [facility] 5 09:42:47 Unsteady when standing 281266474 Completed 202012/20/2024 Not Available [facility] 5 09:42:48 Syncope and collapse 967503600 Completed 202012/20/2024 Not Available [facility] 5 09:42:50 Acute exacerba tion of chronic obstruct sophie pulmonar y disease 267434096 Completed 202012/20/2024 Not Available [facility] 5 09:42:51 Muscle weakness 52778918 Completed 202012/20/2024 Not Available [facility] 5 09:42:53 Difficul ty walking 078268740 Completed 202012/20/2024 Not Available [facility] 5 09:42:55 Inflamma tory dermatos is 988500296 Completed 202012/20/2024 eczema Not Available [facility] 5 09:42:55 Bronchit is 46364329 Completed 202012/20/2024 Not Available [facility] 5 09:42:56 Acute exacerba tion of chronic obstruct sophie pulmonar y disease 556813818 Completed 202112/20/2024 Not Available [facility] 5 09:42:03 Muscle weakness 17586067 Completed 202112/20/2024 Not Available [facility] 5 09:42:06 Intersti tial lung disease 424640704 Completed 202112/20/2024 Not Available [facility] 5 09:42:11 Metaboli c encephal opathy 96118325 Completed 202112/20/2024 Not Available [facility] 5 09:42:14 Dyspnea 141007939 Completed 202112/20/2024 Not Available [facility] 5 09:42:14 Abnormal posture 57410416 Completed 202112/20/2024 Not Available [facility] 5 09:42:41 Abnormal posture 15994965 Completed 202112/20/2024 Not Available [facility] 5 09:42:42 Constipa tion 04384735 Completed 202112/20/2024 Not Available [facility] 5 09:42:40 Orophary ngeal dysphagi a 56181032 Completed 202112/20/2024 Not Available [facility] 5 09:42:13 Difficul ty walking 813807239 Completed 202212/20/2024 Not Available [facility] 5 09:42:08 Fall Completed 202212/20/2024 Not Available [facility] 5 09:42:12 Senile cataract 51505955 Completed 202212/23/2024 BLAS GONZÁLES [address] , [address], [place], [address] , [facility] 5 13:43:54 Chronic obstruct sophie pulmonar y disease 42229653 Completed 202212/20/2024 BLAS GONZÁLES [address] , [address], [place], [address] , [facility] 5 13:32:43 Disorder of body system 782846229 Completed 202212/20/2024 Not Available [facility] 5 09:42:39 Chronic obstruct sophie pulmonar y disease 09811704 Active 2022 BLAS GONZÁLES [address] , [address], [place], [address] , [facility] 5 13:32:43 Chronic hypoxemi c respirat ory failure 893006687 Completed 202212/20/2024 Not Available [facility] 5 09:42:36 Gastroes ophageal reflux disease without esophagi tis 241311910 Completed 202212/23/2024 BLAS GONZÁLES [address], [address], [place], [address] , [facility] 5 13:43:54 Pain in left foot 59561595448 9107 Completed 202212/20/2024 Not Available [facility] 09:42:34 Essentia l hyperten lisa 17108360 Completed 202212/23/2024 BLAS GONZÁLES [address], [address], [place], [address] , [facility] 13:43:54 Osteopor osis 58854274 Completed 202212/20/2024 Not Available [facility] 5 09:42:52 Localize d, primary osteoart hritis of the ankle and/or foot 728087115 Completed 202212/20/2024 Not Available [facility] 09:42:33 Pleuriti c pain 6797738 Completed 202212/20/2024 Not Available [facility] 5 09:42:32 Fracture of multiple ribs 6759880 Completed 202312/20/2024 Not Available [facility] 5 09:42:01 Fall Completed 202312/20/2024 Not Available [facility] 5 09:42:29 Acute on chronic hypoxemi c respirat ory failure 66002949590 806099 Completed 202312/20/2024 Not Available [facility] 5 09:42:29 Syncope and collapse 358637525 Completed 202312/20/2024 Not Available [facility] 5 09:42:30 Difficul ty walking 304215899 Completed 202312/20/2024 Not Available [facility] 5 09:42:31 Acute exacerba tion of chronic obstruct sophie pulmonar y disease 721719760 Completed 202312/20/2024 Not Available [facility] 5 09:42:00 Acute on chronic hypercap juan respirat ory failure 64013182476 06 Completed 202312/20/2024 Not Available [facility] 5 09:42:03 Acute on chronic hypoxemi c respirat ory failure 52169237285 021027 Completed 202312/20/2024 Not Available [facility] 5 09:42:06 Acute pulmonar y edema 49373631 Completed 202312/20/2024 Not Available [facility] 5 09:42:08 Congesti ve heart failure 68526156 Completed 202312/20/2024 Not Available [facility] 09:42:10 Anxiety disorder 235324186 Active 2023 Not Available [facility] 5 09:42:22 Inflamma tory dermatos is 171498961 Completed 202312/20/2024 eczema Not Available [facility] 5 09:42:23 Unsteady when standing 225683090 Completed 202312/20/2024 Not Available [facility] 5 09:42:24 Muscle weakness 52717387 Completed 202312/20/2024 Not Available [facility] 5 09:42:25 Dyspnea 087253522 Completed 202312/20/2024 Not Available [facility] 5 09:42:25 Difficul ty walking 794472024 Completed 202312/20/2024 Not Available [facility] 5 09:42:26 Somatic syndrome absent 788788670 Completed 202312/23/2024 BLAS GONZÁLES [address], [address], [place], [address] , [facility] 5 13:43:54 Pulmonar y emphysem a 64638184 Completed 202312/23/2024 JOLEEN BISHOP, BLAS [address], [address], [place], [address] , [facility] 5 13:43:54 Need for personal care assistan ce 07387869457 124681 Completed 202312/20/2024 Not Available [facility] 5 09:42:11 Acidosis 40458090 Completed 202312/20/2024 Not Available [facility] 5 09:42:02 Congesti ve heart failure 00371021 Completed 202312/20/2024 Not Available [facility] 5 09:42:04 Chronic hypercap juan respirat ory failure 124343444 Completed 202312/20/2024 Not Available [facility] 5 09:42:43 Pneumoni a 294121250 Completed 202312/20/2024 Not Available [facility] 5 09:42:09 Muscle weakness 23399740 Completed 202312/20/2024 Not Available [facility] 5 09:42:16 Difficul ty walking 477635110 Completed 202312/20/2024 Not Available [facility] 5 09:42:17 Chronic cor pulmonal e 47928354 Completed 202312/20/2024 Not Available [facility] 5 09:42:17 Atopic dermatit is 90405775 Completed 202312/20/2024 Not Available [facility] 5 09:42:18 Acute exacerba tion of chronic obstruct sophie pulmonar y disease 462896321 Completed 202312/20/2024 Not Available [facility] 5 09:42:19 Congesti ve heart failure 59076612 Active 2023 Not Available [facility] 5 09:42:19 Paroxysm al atrial fibrilla tion 172093629 Active 2023 Not Available [facility] 5 09:42:20 Major depressi on, single episode 03722343 Completed 202312/20/2024 Not Available [facility] 5 09:42:45 Post-tra umatic stress disorder 28102106 Active 2023 Not Available [facility] 5 09:42:20 Dependen ce on enabling machine or device 348302065 Completed 202312/23/2024 IVAP BLAS GONZÁLES [address], [address], [place], [address] , [facility] 5 13:43:54 Dependen ce on suppleme ntal oxygen 13848758025 7 Completed 202312/20/2024 Not Available [facility] 5 09:42:37 Chronic obstruct sophie pulmonar y disease 87637598 Completed 202312/20/2024 Not Available [facility] 5 10:29:12 Acute on chronic hypoxemi c respirat ory failure 79717209648 157680 Completed 202412/20/2024 Not Available [facility] 5 09:41:58 Anemia 568925016 Active 2024 Not Available [facility] 5 09:42:15 Epilepsy 59322966 Completed 202412/23/2024 BLAS GONZÁLES [address], [address], [place], [address] , [facility] 5 13:43:54 Seizure 08952482 Active 2024 BLAS GONZÁLES [address], [address], [place], [address] , [facility] 5 13:33:33 Lung mass 578622064 Active 2024 JOLEEN BISHOP PROVIDER RELATIONS REPRESENTATIVE[address], [address], [place], [address] , [facility] 5 14:00:34 Bipolar disorder 78266671 Active [address], [address], [place], [address] , [facility] 5 14:04:18 Gastroes ophageal reflux disease 449667423 Active 20[address]LES[address], [address], [place], [address] , [facility] 5 14:16:13 Problem Notes None recorded. Medical Equipment None Reported. Allergies Allergen ID Allergen Name Allergen Category Reaction Reaction Severity Criticality Documentation Date Start Date Code Code System Note Provider Name and Address Organization Details Recorded Time 161 Haldol medicatio n Not available Not available Not available 09/01/2015 56043 9 RxNorm Mellisa Georges [address], [address], [place], [address], [facility] 5 10:07:26 162 codeine medicatio n Not available Not available Not available 09/01/20152021 2670 RxNorm Restl ess/R jai Not Available [facility] 09:42:59 163 Substance with sulfonami de structure and antibacte rial mechanism of action (substanc e) medicatio n Not available Not available Not available 09/01/2015 52825 8003 SNOMED Mellisa Georges [address], [address], [place], [address], [facility] 5 10:07:26 24501 haloperid ol medicatio n Not available Not available Not available 12/20/20242021 5093 RxNorm Palpa tions Not Available [facility] 5 09:42:59 29327 fluoxetin e medicatio n Not available Not [...] 97 % 103/52 mm[Hg] BLAS GONZÁLES [address], [address], [place], [address], [place] [facility] 14:47:16 Social History Question Answer Notes LastModified by Organizat ion Details LastModified Time Tobacco Smoking Status Current Every Day Smoker Not Available [employer] 09/23/2020 03:13:02 How Many Years Have You Smoked Tobacco? 50 [id number] Information not available 09/23/2020 Sex: Unknown Functional [...] Diagnosis Note 363 BLAS Rollins [facility] on [address] [place] [address] 09/01/2015 10:08:10 11/04/2015 03:49:10 Acute exacerbation of chronic obstructive pulmonary disease 175965624 J44.1 pt will continue her nebs treatments , Spiriva, prednisone taper, theodur, advair. continue on bipap, start PT/OT Gastroesop hageal reflux disease 214138827 K21.9 continue prilosec Bipolar disorder 4861728 4 F31.9 as pt requested we will increase abilify to 15 mg qd from 10 mg, continue lamictal as ordered which is not a change from [facility]. she can also see NEG for this diagnosis. Insomnia 102064054 G47.0 0 pt has been on trazodone in the past, not now, will try remeron Tachycardia 7195913 R00. 0 pt was started on atenolol for elevated heart rate. is normal rate now. continue to monitor. 450 Mohsen Dos Santos MD Main Office [address], [address] [place] [address] 09/02/2015 17:39:53 10/09/2015 03:48:09 Acute exacerbation of chronic obstructive pulmonary disease 397908001 J44.1 acute on chronic, improving. Unclear why on all her inhalers while she is on oral prednisone and DuoNeb. We will hold all her inhalers until she has stopped her DuoNeb updrafts and her steroids have been tapered off. Tachycardia 4063890 R00. 0 responding to atenolol. Patient feels much improved Bipolar disorder 0362758 4 F31.9 no change her current medication s Chronic ob structive pulmonary disease 52111705 J44.9 chronic history, resume baseline meds once stable [id number] JOLEEN BISHOP, BLAS [facility]STONE [address] [place] [address] 12/17/2024 13:30:48 12/25/2024 16:13:18 Chronic obstructive pulmonary disease 30980376 J44.9 sob not r/t exacerbati onbaseline on supplement al O2 at 3 literscont on albuterol, breo neb tx, prednisone ,per discharge summary voriconazo le was mention in med list, unable to verify if she was started on this by pulmonolog y.f/u with pulmonolog ymonitor resp status.RT eval and tx prncont biPAP at hs Congestive heart failure 92479559 I50.9 cont on Lasix 40mg , kcl 10 megcont on metoprolol monitor weight, resp, edema Paroxysmal atrial fibrillation 545483687 I48.0 cont on eliquis , metoprolol monitor for unexplaine d bruising bleeding Seizure 53249175 R56.9 continue Lamictal 200 mg qd and 300 mg at nightmonit or for activityfo llow labs Anemia 400670869 D64.9 symptomati chgb 8.4GI consulted - recommende d to f/u with GI outpatient started on ferrous sulfate dailycont vit b, vit Dfollow labs Lung mass 501962117 R91. 8 11/02/24 ct scan showed small area of consolidat sophie hypodensit y in the left upper lobe slightly increased compared to 11/24/2023 .need to f/u to r/o malignancy . Depressive disorder 4478 9007 F32.A cont on Vilazodone 40 mgcontinue on mirtazapin ehx of suicidal ideat b ion, monitor moods and behavioral changes Bipolar disorder 2082440 4 F31.9 cont on abilify, theophylli ne Gastroesop hageal reflux disease 334598842 K21.9 cont on protonixmo nitor for GI upsetsx if bleeding Osteoporosis 78895971 M8 1.0 cont. on alendronat e, vit D, omega 3 , calcium Allergic rhinitis 743373 04 J30.9 cont fluticason e and mucinex Constipation 84658151 K5 9.00 cont on miralax, senna, lactulose Asthenia 66982402 R53.1 02 dependent, dyspnea with exertionPT /OT eval and treat [id number] FARHAD DAILEY NP-C [facility] [address] [place] [address] 12/25/2024 12:54:10 12/27/2024 14:09:06 Anemia 532674674 D64.9 symptomati chgb 8.4GI consulted - recommende d to f/u with GI outpatient started on ferrous sulfate dailycont vit b, vit Dfollow labs outptf/up with pcp Chronic ob structive pulmonary disease 90022850 J44.9 sob not r/t exacerbati onbaseline on supplement al O2 at 3 literscont on albuterol, breo neb tx, prednisone ,per discharge summary voricontashi mesa was mention in med list, unable to verify if she was started on this by pulmonolog y.f/u with pulmonolog ycont biPAP at hs Congestive heart failure 67210848 I50.9 cont on Lasix 40mg , kcl 10 megcont on metoprolol monitor weight, resp, edema at homef/up with pcp Paroxysmal atrial fibrillation 335755959 I48.0 cont on eliquis , metoprolol monitor bleeding at homef/up with pcp Seizure 44809959 R56.9 continue Lamictal 200 mg qd and 300 mg at nightmonit or for activity at homef/up with pcp Lung mass 482050321 R91. 8 11/02/24 ct scan showed small area of consolidat sophie hypodensit y in the left upper lobe slightly increased compared to 11/24/2023 .need to f/u to r/o malignancy outptf/up with pcp Depressive disorder 3548 9007 F32.A cont on Vilazodone 40 mgcontinue on mirtazapin ef/up with pcp Bipolar disorder 4311402 4 F31.9 cont on abilify, theophylli mars/up with pcp Gastroesop hageal reflux disease 845463176 K21.9 cont on protonixmo nitor for GI upset outptf/up with pcp Osteoporosis 21083781 M8 1.0 cont. on alendronat e, vit D, omega 3 , calciumf/u p with pcp Allergic rhinitis 581622 04 J30.9 cont fluticason e and mucinexf/u p with pcp Constipation 22950336 K5 9.00 cont on miralax, senna, lactulosef /up with pcp Asthenia 53660489 R53.1 02 dependent, dyspnea with exertionco mpleted PT/OT eval and treatf/up with pcp Health Concerns Section Related Observation LastModified by Organization Detai ls LastModified Time None Recorded Concern Status LastModified by Organization Details LastModified Time None Recorded Advance Directives Directive None Recorded Payers Insurance Date Sequence Insurance Name Policy Number Policy Garcia Covered Member ID Garcia Member ID Guarantor Name 11/14/2024 1 [place] [facility] Lluvia Cartagena [id number] Lluvia Cartagena 12/17/2024 2 [place] [facility] Lluvia Cartagena [id number] Lluvia Cartagena 12/25/2024 1 MED[place] B[place] [facility] [employer] Lluvia Cartagena [id number] Lluvia Cartagena Notes Date Note Type Note Provider Name and Address Organization Details Recorded Time 09/01/2015 text/html HPI patient admitted [place] [facility] [place] exacerbation, acute on chronic resp failure, started on Bipap and atenolol for tachycardia AIDA RollinsP [address], [address], [place], [address], [facility] 09/01/2015 10:36:55 09/02/2015 text/html HPI 60-year-old female admitted for respiratory infection with negative chest x-ray, acute exacerbation of COPD, but he by hypoxemia and hypercapnia. She required ICU stay for administration of BiPAP. Chest x-ray did not show acute infiltrate. She was treated however with steroids, updraft and antibiotics. History of bipolar disorder as well is active smoker Mohsen Dos Santos MD [address], [address], [place], [address], [facility] 09/02/2015 17:45:59 12/17/2024 text/html ROS as noted in the HPI This is a 69-year-old female patient seen for Transition of care and re-admission. PMH of chronic hypoxic respiratory failure secondary to COPD, chronic CO2 retention, Afib, anxiety/depression, PTSD,obesity, osteoporosis, lung mass,PNA. She was sent to [facility] for evaluation of worsening shortness of breath; medical workup appeared to be at her baseline with the exception of anemia, baseline she usually around 10, labs showed hgb 8.4. GI was consulted and due to no concerns for a GI bleed, patient is recommended to follow up outpatient for EGD/colonoscopy. Per nursing she has been at her baseline since returning [place], there are no acute concerns. BLAS GONZÁLES [address] [place] [address], [address], [place], [address], [employer] 12/23/2024 16:38:36 12/25/2024 text/html ROS as noted in the HPI This is a 69-year-old female patient seen for discharge summary. PMH of chronic hypoxic respiratory failure secondary to COPD, chronic CO2 retention, Afib, anxiety/depression, PTSD, obesity, osteoporosis, lung mass,PNA. She was sent to [facility] for evaluation of worsening shortness of breath; [...] plan on finding her a pcp in [place] where they live. Patient is stable for tn home with meds and services. GÉNESIS FERNÁNDEZ [address], [address], [place], [address], [facility] 12/26/2024 07:14:05 OBGyn Episode No OBEpisode recorded.
--- OUTSIDE RECORDS SUMMARY | 2025-11-10 01:52 | XMS_ITS | Encounter Summary ---
Author Organization [facility] Address [address] [place] [address] Care Team Providers Care Corporate Real Estate Specialist Name Role Phone Kinjal Barron METAL HANGER Primary Care Provid er Encounter Details Date Type Department Care Team (Late st Contact Info) Description 09/09/2025 Lab Requisition [facility] - Main Lab [address] [place] [address] Janice Núñez MD [address] [place], [place] [id number] Chronic obstructive pulmonary disease, unspecified (CMS/HCC V24, [...] Description 02/18/2026 10:30 AM EDT Office Visit [facility] Hematology Oncology [address] [place] [phone] Lashanda Mcgill, [address] [place] [address] documented as of this encounter Procedures Procedure Name Priority Date/Time Associated Diagnosis Comments BASIC METABOLIC PANEL Routine 09/09/2025 7:29 AM EDT Chronic obstructive pulmonary disease, unspecified ([facility] V24, [facility] V28) Malignant neoplasm of unspecified part of unspecified bronchus or lung ([facility] V24, [facility] V28) documented in this encounter Results * (ABNORMAL) Basic metabolic panel (09/09/2025 7:29 AM EDT) Sodium 141 133 - 145 mmol/L LAB CHEMISTRY METHOD 09/09/2025 2:03 PM [facility] Potassium 3.7 3.5 - 5.5 mmol/L LAB CHEMISTRY METHOD 09/09/2025 2:03 PM [facility] Chloride 98 96 - 110 mmol/L LAB CHEMISTRY METHOD 09/09/2025 2:03 PM [facility] CO2 39(H) 21 - 32 mmol/L LAB CHEMISTRY METHOD 09/09/2025 2:03 PM [facility] Anion Gap 4 3 - 11 LAB CHEMISTRY METHOD 09/09/2025 2:03 PM [facility] Glucose 80 70 - 100 mg/dL LAB CHEMISTRY METHOD 09/09/2025 2:03 PM [facility] BUN 10 5 - 25 mg/dL LAB CHEMISTRY METHOD 09/09/2025 2:03 PM [facility] Creatinine 0.69 0.50 - 1.10 mg/dL LAB CHEMISTRY METHOD 09/09/2025 2:03 PM [facility] eGFR 93 >=60 mL/min/1. 73m2 LAB CHEMISTRY METHOD 09/09/2025 2:03 PM [facility] Comment:Calculation based on the Chronic Kidney Disease Epidemiology Collaboration (CKD-EPI) equation refit without adjustment for race. BUN/Creatinine Ratio 14.5 LAB CHEMISTRY METHOD 09/09/2025 2:03 PM [facility] Calcium 8.8 8.5 - 10.5 mg/dL LAB CHEMISTRY METHOD 09/09/2025 2:03 PM EDT [facility] Blood Venous blood specimen / Unknown Venipuncture / Unknown 09/09/2025 7:29 AM EDT 09/09/2025 12:28 PM EDT us Janice Núñez MD LAB BLOOD ORDERABLES Final Resul t [facility] [address] [place] [address], documented in this encounter Visit Diagnoses Diagnosis Chronic obstructive pulmonary disease, unspecified (CMS/HCC V24, CMS/HCC V28) Malignant neoplasm of unspecified part of unspecified bronchus or lung (CMS/HCC V24, CMS/HCC V28) documented in this encounter Additional Health Concerns Assessment Noted Time PHQ-9 Depression Total Score: 1 07/19/20 5:04 PM EDT documented as of this encounter Care Teams Corporate Real Estate Specialist Relationship Specialty Start Date End Date Kinjal Barron FNP [address] [place] [phone] PCP - General Family Medicine 03/06/25 documented as of this encounter
--- OUTSIDE RECORDS SUMMARY | 2025-11-10 01:52 | XMS_ITS | Clinical Summary ---
Author Organization 175 [facility] Address [address] [place] [address] Phone Care Team Providers Care Residency Program Coordinator Name Role Phone Rabia Barrongeovanny Jacqueline LEAD SETTER Primary Care Provid er Allergies Active Allergy [...] (one) time each day. 4 Active cholecalciferol , vitamin D3, 25 mcg (1,000 unit) tablet,chewable Chew 1,000 Units 1 (one) time each day in the morning. 4 Active fluticasone furoate-vilante roL (Breo Ellipta) 200-25 mcg/dose inhaler INHALE 1 PUFF DIRECTED ONCE A DAY 4 Active gabapentin (NEURONTIN) 100 mg capsule Take 1 capsule (100 mg total) by mouth 2 (two) times a day with meals. 4 Active lamoTRIgine (LaMICtal) 200 mg tablet Take 1 tablet (200 mg total) by mouth 2 (two) times a day. 4 Active mirtazapine (REMERON) 15 mg tablet Take 0.5 tablets (7.5 mg total) by mouth at bedtime. 4 Active montelukast (SINGULAIR) 10 mg tablet Take 1 tablet (10 mg total) by mouth 1 (one) time each day. 4 Active pantoprazole (PROTONIX) 40 mg EC tablet Take 1 tablet (40 mg total) by mouth 1 (one) time each day. 30 minutes before breakfast daily 4 Active theophylline (MANDY-24) 300 mg 24 hr capsule Take 1 capsule (300 mg total) by mouth 2 (two) times a day. Active vilazodone (VIIBRYD) 40 mg tablet Take 1 tablet (40 mg total) by mouth 1 (one) time each day in the morning. 4 Active fluticasone propionate (FLONASE) 50 mcg/actuation nasal [...] crush or chew. 30 each 11 4 Active loratadine (CLARITIN) 10 mg tablet Take 1 tablet (10 mg total) by mouth 1 (one) time each day. Active ipratropium-alb uteroL (DUONEB) 0.5-2.5 mg/3 mL nebulizer solutionIndicat ions:Chronic obstructive pulmonary disease, unspecified COPD type (CMS/[facility] V24, [facility] V28),Chronic respiratory failure with hypercapnia ([facility] V24, [facility] V28) Take 3 mL by nebulization 2 (two) times a day if needed for wheezing. 360 mL 2 5 04/09/20 Active Additional Information Patient taking differently:3 mL nebulization4 times daily PRN, shortness of breath, Reported on 09/05/2025 lidocaine-prilo kyra (EMLA) 2.5-2.5 % cream Apply to port site 1 hour prior to each time port is accessed 30 g 1 Active Additional Information Patient not taking.Reported on 09/05/2025 dexAMETHasone (DECADRON) 4 mg tabletIndicatio ns:Squamous cell carcinoma of left lung ([facility] V24, [facility] V28) Take 8 mg (two tablets) once daily, starting the day after treatment, for three days (days 2-4). Take in the morning with food. 30 tablet 1 Active Additional Information Patient not taking.Reported on 09/05/2025 apixaban (Eliquis) 5 mg tablet Take 1 tablet (5 mg total) by mouth 2 (two) times a day. 5 01/07/20 Active docusate sodium (COLACE) 100 mg capsule [...] 3 (three) times a week. TUESDAY, TUESDAY, Tuesday Active ferrous sulfate 324 mg (65 mg elemental iron) EC tablet Take 1 tablet (324 mg total) by mouth 3 (three) times a week. TUESDAY, TUESDAY, Tuesday Active guaiFENesin (MUCINEX) 600 mg 12 hr tablet Take 1 tablet (600 mg total) by mouth 2 (two) times a day. Active omega 9-ysc-zsq-fish oil 300 mg (120 mg- 180mg)-1,000 mg capsule Take 1,000 mg by mouth 2 (two) times a day. Active predniSONE (DELTASONE) 5 mg tablet Take 1 tablet (5 mg total) by mouth 1 (one) time each day. Active traMADoL (ULTRAM) 50 mg tablet Take 1 tablet (50 mg total) by mouth every 6 (six) hours if needed for moderate pain. Active Oxygen Therapy (O2) gas Inhale 2 L/min continuously. via nasal canula 2L while at rest, 3-4L with activity and ventilation system at bedtime Active aspirin 81 mg EC tablet Take 1 tablet (81 mg total) by mouth 1 (one) time each day. 09/06/20 Active atorvastatin (Lipitor) 40 mg tablet Take 1 tablet (40 mg total) by mouth at bedtime. 09/06/20 Active Active Problems Problem Noted Date Diagnosed [...] on CPAP 11/08/2017 Overview (09/12/2024): Life supply/cpap [facility] Polysomnogram Trilogy treatment study. Date 09/06/2019. Wt [...] Encounters Date Type Department Care Team Description 11/05/2025 Lab Requisition [facility] - Main Lab [address] [place] [phone] Janice Núñez MD Malignant neoplasm of unspecified part of left bronchus or lung (CMS/HCC V24, CMS/HCC V28); Chronic respiratory failure with hypercapnia (CMS/HCC V24, CMS/HCC V28) 10/29/2025 Lab Requisition [facility] [address] [place] [phone] Janice Núñez MD Malignant neoplasm of unspecified part of left bronchus or lung (CMS/HCC V24, CMS/HCC V28); Chronic respiratory failure with hypercapnia (CMS/HCC V24, CMS/HCC V28) 10/28/2025 Telephone [facility] Hematology Oncology [address] [place] [phone] Lashanda Mcgill DO 10/22/2025 Lab Requisition [facility] [address] [place] [phone] Janice Núñez MD Malignant neoplasm of unspecified part of left bronchus or lung (CMS/HCC V24, CMS/HCC V28); Chronic respiratory failure with hypercapnia (CMS/HCC V24, CMS/HCC V28) 10/21/2025 Lab Requisition [facility] [address] [place] [phone] Janice Núñez MD Anemia, unspecified; Essential (primary) hypertension; Malignant neoplasm of unspecified part of unspecified bronchus or lung (CMS/HCC V24, CMS/HCC V28) 10/18/2025 10:45 AM EST Office Visit [facility] Hematology Oncology [address] [place] [phone] Lashanda Mcgill DO Squamous cell carcinoma of left lung (CMS/HCC V24, CMS/HCC V28) (Primary Dx); Chronic respiratory failure with hypercapnia (CMS/HCC V24, CMS/HCC V28); Mild anemia 10/16/2025 Lab Requisition [facility] [address] [place] [phone] Janice Núñez MD Dysuria 10/15/2025 Lab Requisition [facility] Lab [address] [place] [phone] Janice Núñez MD Malignant neoplasm of unspecified part of left bronchus or lung ([facility]/HCC V24, CMS/HCC V28); Chronic respiratory failure with hypercapnia ([facility]/HCC V24, [facility]/HCC V28) 10/08/2025 10:00 AM EST - 10/08/2025 11:59 PM [facility] PET Scan [address] [place] [phone] Squamous cell carcinoma of left lung ([facility]/HCC V24, [facility]/HCC V28); Personal history of malignant neoplasm of lung; Malignant neoplasm of overlapping sites of left bronchus and lung ([facility]/HCC V24, [facility]/HCC V28) Discharge Disposition: Home or Self Care 10/08/2025 Lab Requisition [facility] Lab [address] [place] [phone] Janice Núñez MD Malignant neoplasm of unspecified part of left bronchus or lung ([facility]/HCC V24, CMS/HCC V28); Chronic respiratory failure with hypercapnia ([facility]/HCC V24, CMS/HCC V28) 10/01/2025 Lab Requisition [facility] [address] [place] [phone] Janice Núñez MD Malignant neoplasm of unspecified part of left bronchus or lung ([facility]/HCC V24, CMS/HCC V28); Chronic respiratory failure with hypercapnia (CMS/HCC V24, CMS/HCC V28) 09/24/2025 Lab Requisition [facility] Lab [address] [place] [phone] Janice Núñez MD Malignant neoplasm of unspecified part of left bronchus or lung ([facility]/HCC V24, CMS/HCC V28); Chronic respiratory failure with hypercapnia (CMS/HCC V24, CMS/HCC V28) 09/19/2025 Telephone [facility] Radiation Oncology [address] [place] [phone] Debra Loya, RD 09/17/2025 11:45 AM EDT Office Visit [facility] Hematology Oncology [address] [place] [phone] Lashanda Mcgill DO Squamous cell carcinoma of left lung ([facility] V24, [facility] V28) (Primary Dx); Personal history of malignant neoplasm of lung; Malignant neoplasm of overlapping sites of left bronchus and lung ([facility] V24, [facility]/HCC V28) 09/17/2025 Lab Requisition [facility] [address] [place] [phone] Janice Núñez MD Malignant neoplasm of unspecified part of left bronchus or lung ([facility] V24, [facility] V28); Chronic respiratory failure with hypercapnia ([facility] V24, [facility] V28) 09/12/2025 Telephone [facility] Hematology Oncology [address] [place] [phone] Elke Duong, SHELBY 09/10/2025 Lab Requisition [facility] [address] [place] [phone] Janice Núñez MD Malignant neoplasm of unspecified part of left bronchus or lung ([facility], [facility]/HCC V28); Chronic respiratory failure with hypercapnia ([facility]/HCC V24, CMS/HCC V28) 09/09/2025 Lab Requisition [facility] [address] [place] [phone] Janice Núñez MD Chronic obstructive pulmonary disease, unspecified ([facility] V24, [facility] V28); Malignant neoplasm of unspecified part of unspecified bronchus or lung ([facility] V24, [facility]/HCC V28) 09/05/2025 10:39 AM EDT - 09/06/2025 6:08 PM EDT Hospital Encounter [facility] Inter[facility] Care [facility] B [address] [place] [phone] Glenroy Paez MD Flores, Carlos M, MD Bell, Alistair A, MD Stroke-like symptoms (Primary Dx) Discharge Disposition: Nursing Home Facility 09/05/2025 Telephone [facility] Hematology Oncology [address] [place] [phone] Erika Tran RN 09/03/2025 Lab Requisition [facility] [address] [place] [phone] Janice Núñez MD Malignant neoplasm of unspecified part of left bronchus or lung ([facility] V24, [facility] V28); Chronic respiratory failure with hypercapnia ([facility] V24, [facility] V28) 09/01/2025 Lab Requisition [facility] [address] [place] [phone] Janice Núñez MD Frequency of micturition; Fever, unspecified 08/30/2025 Lab Requisition [facility] [address] [place] [phone] Janice Núñez MD Hyperkalemia 08/27/2025 Lab Requisition [facility] [address] [place] [phone] Janice Núñez MD Malignant neoplasm of unspecified part of left bronchus or lung ([facility] V24, [facility] V28); Chronic respiratory failure with hypercapnia ([facility] V24, [facility] V28) 08/20/2025 Lab Requisition [facility] [address] [place] [phone] Janice Núñez MD Malignant neoplasm of unspecified part of left bronchus or lung ([facility] V24, [facility] V28); Respiratory failure, unspecified, unspecified whether with hypoxia or hypercapnia ([facility] V24, [facility] V28); Other intermission coordinator (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 therapy from Last 3 Months Immunizations Immunization Administration [...] Comments Depression 10/09/2017 DX:Depression Bipolar I disorder ([facility] V24, [facility] V28) 06/10/2017 DX:Bipolar I disorder ([facility]) Chronic obstructive pulmonar y disease ([facility] V24, [facility] V28) 07/29/2017 DX:Chronic obstructive pulm onary disease ([facility]), will bipap Chronic respiratory failure with hypercapnia ([facility] V24, [facility] V28) 08/02/2017 DX:Chronic resp iratory failure with hypercapnia ([facility]), uses trelegy machine/ will bring dos Dependence [...] Arrhythmia Afib , hx Emphysema of lung ([facility] V 24, [facility] V28) per daughter HL (hearing loss) wears hearing aids Full dentures Lung cancer ([facility] V24, [facility] V28) 03/2025 Asthma 1111 Psychiatric illness Family [...] Sign Reading Time Taken Comments Blood Pressure 144/70 10/18/2025 10:52 AM EST Pulse 82 10/18/2025 10:52 AM EST Temperature 36 C (96.8 F) 10/18/2025 10:52 AM EST Respiratory Rate 19 09/06/2025 3:14 PM EDT Oxygen Saturation 91% 10/18/2025 10:52 AM EST 4L O2 Inhaled Oxygen Concentration - - Weight 89 kg (196 lb 3.2 oz) 10/18/2025 10:52 AM EST Height 154.9 cm (5' 1 ) 10/18/2025 10:52 AM EST Body Mass Index 37.07 10/18/2025 10:52 AM EST Plan of Treatment Upcoming Encounters Date Type Department Care Team (Late st Contact Info) Description 02/18/2026 10:30 AM EDT Office Visit [facility] Hematology Oncology [address] [place] [phone] Lashanda Mcgill DO [address] [place] [address] Health Maintenance Due Date Last Done Comments DTaP,Tdap,and Td Vaccines (1 - Tdap) 1973 RSV Immunization Adult Patients (1 - Risk 50-74 years 1-dose series) 2004 Medicare Annual Wellness Visit 10/30/2022 Social Influencers of Health Screening 10/30/2022 Zoster Vaccines (2 of 2) 06/19/2024 04/24/2024 COVID-19 Vaccine (6 - season) 2025 04/30/2024, 04/24/2024, 04/07/2022, Additional history exists Influenza Vaccine (#1) 2025 , 09/05/2018, 08/24/2015, Additional history exists Breast Cancer Screening 03/22/2026 03/22/20, 03/21/2024, 02/16/2023, Additional history exists Falls Risk Assessment 09/06/2026 09/06/2025, 024 Hypertension/CHF/CAD Annual BMP Blood Test 11/06/2026 11/06/2025, 10/30/2025, 10/23/2025, Additional history exists Colorectal Cancer Screening: Colonoscopy [...] this topic Medical Devices Implanted Type Area Music Publicist Device Identifier Shelf Expiration Date Model / Serial / Lot Port Pwr Isp Attach 6f Interm [place] - [id number] Implanted:Qty : 1 on 07/09/2025 by Jesica Henderson MD at [facility] Central/Per ipheral Catheters and Ports Right: Internal Jugular CR BARD PERIPHERAL VASCULAR [id number] 09/27/2025 [id number] / / [id number] Marker Cobra Superlock - Sna - [id number] Implanted:Qty : 1 on 04/03/2025 by Justine Wong MD at [facility] Imaging Implants Left: Lung [employer] [id number] 08/27/2028 [id number] / [id number] / [id number] Description:LEFT UPPER LOBE Procedures Procedure Name Priority Date/Time Associated Diagnosis Comments BASIC METABOLIC PANEL Routine 11/06/2025 7:41 AM EST Malignant neoplasm of unspecified part of left bronchus or lung (CMS/HCC V24, CMS/HCC V28) Chronic respiratory failure with hypercapnia (CMS/HCC V24, CMS/HCC V28) COMPLETE BLOOD COUNT Routine 11/06/2025 7:41 AM [...] V24, CMS/HCC V28) COMPLETE BLOOD COUNT Routine 10/30/2025 7:18 AM [...] V24, CMS/HCC V28) COMPLETE BLOOD COUNT Routine 10/23/2025 7:00 AM EST Malignant neoplasm of unspecified part of left bronchus or lung (CMS/HCC V24, CMS/HCC V28) Chronic respiratory failure with hypercapnia (CMS/HCC V24, CMS/HCC V28) FOLATE Routine 10/21/2025 [...] bronchus or lung (CMS/HCC V24, CMS/HCC V28) IRON AND TIBC Routine 10/21/2025 8:45 AM [...] V24, CMS/HCC V28) COMPLETE BLOOD COUNT Routine 10/16/2025 5:37 AM EST Malignant neoplasm of unspecified part of left bronchus or lung (CMS/HCC V24, CMS/HCC V28) Chronic respiratory failure with hypercapnia (CMS/HCC V24, CMS/HCC V28) URINALYSIS WITH REFLEX MICROSCOPIC Routine 10/16/2025 12:00 AM EST Dysuria URINALYSIS WITH REFLEX MICROSCOPIC Routine 10/16/2025 12:00 AM EST Dysuria CULTURE URINE Routine 10/16/2025 12:00 AM EST Dysuria BASIC METABOLIC PANEL Routine 10/09/2025 5:27 AM EST Malignant neoplasm of unspecified part of left bronchus or lung (CMS/HCC V24, CMS/HCC V28) Chronic respiratory failure with hypercapnia (CMS/HCC V24, CMS/HCC V28) COMPLETE BLOOD COUNT Routine 10/09/2025 5:27 AM EST Malignant neoplasm of unspecified part of left bronchus or lung (CMS/HCC V24, CMS/HCC V28) Chronic respiratory failure with hypercapnia (CMS/HCC V24, CMS/HCC V28) PET CT SKULL TO MID THIGH SUBSEQUENT Routine 10/08/2025 11:46 AM EST Squamous cell carcinoma of left lung (CMS/HCC V24, CMS/HCC V28) Personal history of malignant neoplasm of lung Malignant neoplasm of overlapping sites of left bronchus and lung (CMS/HCC V24, CMS/HCC V28) BASIC METABOLIC PANEL Routine 10/02/2025 7:32 AM EST Malignant neoplasm of unspecified part of left bronchus or lung (CMS/HCC V24, CMS/HCC V28) Chronic respiratory failure with hypercapnia (CMS/HCC V24, CMS/HCC V28) COMPLETE BLOOD COUNT Routine 10/02/2025 7:32 AM [...] V24, CMS/HCC V28) COMPLETE BLOOD COUNT Routine 09/25/2025 6:14 AM [...] or hypercapnia (CMS/HCC V24, CMS/HCC V28) Other intermediate (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 therapy VITAMIN B12 Routine 08/20/2025 4:50 AM EDT Malignant neoplasm of unspecified part of left bronchus or lung (CMS/HCC V24, CMS/HCC V28) Respiratory failure, unspecified, unspecified whether with hypoxia or hypercapnia (CMS/HCC V24, CMS/HCC V28) Other intermission coordinator (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 therapy HEMOGLOBIN A1C Routine 08/20/2025 4:50 AM EDT Malignant neoplasm of unspecified part of left bronchus or lung (CMS/HCC V24, CMS/HCC V28) Respiratory failure, unspecified, unspecified whether with hypoxia or hypercapnia (CMS/HCC V24, CMS/HCC V28) Other intermediate (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 therapy THYROID STIMULATING HORMONE Routine 08/20/2025 4:50 AM EDT Malignant neoplasm of unspecified part of left bronchus or lung (CMS/HCC V24, CMS/HCC V28) Respiratory failure, unspecified, unspecified whether with hypoxia or hypercapnia (CMS/HCC V24, CMS/HCC V28) Other intermission coordinator (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 therapy FOLATE Routine 08/20/2025 4:50 AM EDT Malignant neoplasm of unspecified part of left bronchus or lung (CMS/HCC V24, CMS/HCC V28) Respiratory failure, unspecified, unspecified whether with hypoxia or hypercapnia (CMS/HCC V24, CMS/HCC V28) Other intermission coordinator (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 therapy COMPREHENSIVE METABOLIC PANEL Routine 08/20/2025 4:50 AM EDT Malignant neoplasm of unspecified part of left bronchus or lung (CMS/HCC V24, CMS/HCC V28) Respiratory failure, unspecified, unspecified whether with hypoxia or hypercapnia (CMS/HCC V24, CMS/HCC V28) Other intermission coordinator (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 therapy COMPLETE BLOOD COUNT Routine 08/20/2025 4:50 AM EDT Malignant neoplasm of unspecified part of left bronchus or lung (CMS/HCC V24, CMS/HCC V28) Respiratory failure, unspecified, unspecified whether with hypoxia or hypercapnia (CMS/HCC V24, CMS/HCC V28) Other intermission coordinator (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 therapy COLONOSCOPY Routine 04/27/2024 DEPRESSION SCREENING Routine 04/16/2024 [facility] SCREENING DIGITAL Routine 03/22/2024 8:50 AM EDT Encounter for screening mammogram for malignant neoplasm of breast [facility] DEXA AXIAL SKELETON Routine 03/22/2024 8:14 AM EDT Encounter for screening for osteoporosis HEPATITIS C SCREENING Routine 02/09/2024 FALLS RISK ASSESSMENT Routine 02/09/2024 from Last 3 Months or Most Recently Relevant to Health Maintenance Results * (ABNORMAL) Complete blood count (11/06/2025 7:41 AM EST) Only the most recent of13 resultswithin the time period is included. WBC 7.5 4.8 - 10.8 K/mcL LAB HEMETOLOGY METHOD 11/06/2025 11:10 AM [facility] RBC 3.00(L) 3.80 - 4.80 M/mcL LAB HEMETOLOGY METHOD 11/06/2025 11:10 AM [facility] Hemoglobin 7.8(L) 11.5 - 16.0 g/dL LAB HEMETOLOGY METHOD 11/06/2025 11:10 AM [facility] Hematocrit 27.6(L) 35.0 - 47.0 % LAB HEMETOLOGY METHOD 11/06/2025 11:10 AM [facility] MCV 92.3 79.0 - 98.0 FL LAB HEMETOLOGY METHOD 11/06/2025 11:10 AM [facility] MCH 26.1(L) 27.0 - 32.0 pcg LAB HEMETOLOGY METHOD 11/06/2025 11:10 AM [facility] MCHC 28.3(L) 32.0 - 37.0 g/dL LAB HEMETOLOGY METHOD 11/06/2025 11:10 AM EST [facility] RDW 15.9(H) 11.0 - 15.0 % LAB HEMETOLOGY METHOD 11/06/2025 11:10 AM [facility] Platelets 465(H) 130 - 400 K/mcL LAB HEMETOLOGY METHOD 11/06/2025 11:10 AM EST [facility] MPV 9.8 7.0 - 11.0 FL LAB HEMETOLOGY METHOD 11/06/2025 11:10 AM EST [facility] NRBC 0.0 <1.0 % [facility] 11:10 AM [facility] NRBC Absolute 0.00 <0.10 K/mcL LAB HEMETOLOGY METHOD 11/06/2025 11:10 AM [facility] Blood Venous blood specimen / Unknown Venipuncture / Unknown 11/06/2025 7:41 AM EST 11/06/2025 10:49 AM EST us Janice Núñez MD LAB BLOOD ORDERABLES Final Resul t [facility] [address] [place] [address], * (ABNORMAL) Basic metabolic panel (11/06/2025 7:41 AM EST) Only the most recent of16 resultswithin the time period is included. Sodium 139 133 - 145 mmol/L 11/06/2025 12:07 PM [facility] Potassium 3.5 3.5 - 5.5 mmol/L 11/06/2025 12:07 PM [facility] Chloride 91(L) 96 - 110 mmol/L 11/06/2025 12:07 PM [facility] CO2 >40(HH) 21 - 32 mmol/L 11/06/2025 12:07 PM [facility] Anion Gap <8 3 - 11 11/06/2025 12:07 PM [facility] Glucose 79 70 - 100 mg/dL 11/06/2025 12:07 PM [facility] BUN 12 5 - 25 mg/dL 11/06/2025 12:07 PM [facility] Creatinine 0.97 0.50 - 1.10 mg/dL 11/06/2025 12:07 PM [facility] eGFR 63 >=60 mL/min/1. 73m2 11/06/2025 12:07 PM [facility] Comment:Calculation based on the Chronic Kidney Disease Epidemiology Collaboration (CKD-EPI) equation refit without adjustment for race. BUN/Creatinine Ratio 12.4 11/06/2025 12:07 PM [facility] Calcium 8.8 8.5 - 10.5 mg/dL 11/06/2025 12:07 PM [facility] Blood Venous blood specimen / Unknown Venipuncture / Unknown 11/06/2025 7:41 AM EST 11/06/2025 10:49 AM EST us Janice Núñez MD LAB BLOOD ORDERABLES Final Resul t [facility] [address] [place] [address], * (ABNORMAL) Iron and TIBC (10/21/2025 8:45 AM EST) Iron 10(L) 40 - 150 mcg/dL 10/21/2025 11:32 AM [facility] TIBC 392 250 - 450 mcg/dL 10/21/2025 11:32 AM [facility] Iron Saturation 3(L) 15 - 50 % 11:32 AM EST [facility] Blood Venous blood specimen / Unknown Venipuncture / Unknown 10/21/2025 8:45 AM EST 10/21/2025 10:33 AM EST us Janice Núñez MD LAB BLOOD ORDERABLES Final Resul t Performing Organization Address City/[facility]/ZIP Co de Phone Number [facility] [address] [place] [address], [place] [phone] * Folate (10/21/2025 8:45 AM EST) Only the most recent of2 resultswithin the time period is included. Folate 18.8 >=5.4 ng/ml 10/21/2025 11:30 AM EST [facility] Blood Venous blood specimen / Unknown Venipuncture / Unknown 10/21/2025 8:45 AM EST 10/21/2025 10:33 AM EST Narrative [facility] - 10/21/2025 11:30 AM EST Over the counter supplements containing high doses of biotin may interfere with this assay. If interference is suspected, patients shoud be retested after refraining from biotin supplements for 72 hours. us Janice Núñez MD LAB BLOOD ORDERABLES Final Resul t Performing Organization Address City/[facility]/ZIP Co de Phone Number [facility] [address] [place] [address], [place] [phone] * Ferritin (10/21/2025 8:45 AM EST) Ferritin 11 7 - 271 ng/mL 10/21/2025 11:30 AM EST [facility] Blood Venous blood specimen / Unknown Venipuncture / Unknown 10/21/2025 8:45 AM EST 10/21/2025 10:33 AM EST us Janice Núñez MD LAB BLOOD ORDERABLES Final Resul t Performing Organization Address City/[facility]/ZIP Co de Phone Number [facility] [address] [place] [address], [place] [phone] * Vitamin B12 (10/21/2025 8:45 AM EST) Only the most recent of2 resultswithin the time period is included. [facility] Vitamin B-12 631 211 - 911 pcg/mL 10/21/2025 11:30 AM [facility] Blood Venous blood specimen / Unknown Venipuncture / Unknown 10/21/2025 8:45 AM EST 10/21/2025 10:33 AM EST us Janiec Núñez MD LAB BLOOD ORDERABLES Final Resul t Performing Organization Address [facility] Co de Phone Number [facility] [address] [place] [address], [place] [phone] * (ABNORMAL) Urinalysis with reflex microscopic (10/16/2025 12:00 AM EST) Only the most recent of2 resultswithin the time period is included. [facility] Specific [place] Urine 1.015 1.003 - 1.030 LAB URINALYSIS - AUTOMATED METHOD 10/16/2025 11:46 AM [facility] pH, Urine 7.5 5.0 - 8.0 pH LAB URINALYSIS - AUTOMATED METHOD 10/16/2025 11:46 AM [facility] Leukocytes, Urine Large(A) Negative LAB URINALYSIS - AUTOMATED METHOD 10/16/2025 11:46 AM [facility] Nitrite, Urine Negative Negative LAB URINALYSIS - AUTOMATED METHOD 10/16/2025 11:46 AM [facility] Protein, Urine 100(A) <=Trace mg/dL LAB URINALYSIS - AUTOMATED METHOD 10/16/2025 11:46 AM [facility] Glucose, Urine Negative Negative mg/dL LAB URINALYSIS - AUTOMATED METHOD 10/16/2025 11:46 AM [facility] Ketones, Urine Negative Negative mg/dL LAB URINALYSIS - AUTOMATED METHOD 10/16/2025 11:46 AM [facility] Urobilinogen , Urine 0.2 0.2 - 1.0 mg/dL LAB URINALYSIS - AUTOMATED METHOD 10/16/2025 11:46 AM [facility] Bilirubin, Urine Negative Negative LAB URINALYSIS - AUTOMATED METHOD 10/16/2025 11:46 AM [facility] Blood, Urine Moderate(A) Negative LAB URINALYSIS - AUTOMATED METHOD 10/16/2025 11:46 AM [facility] RBC, Urine 20(H) 0 - 4 /HPF 10/16/2025 11:46 AM [facility] WBC, Urine 30(H) 0 - 4 /HPF 10/16/2025 11:46 AM [facility] Squamous Epithelial, Urine 2 0 - 60 /LPF 10/16/2025 11:46 AM [facility] Non-Squamous Epithelial, Urine 2-5 Transitional epithelial cells. /LPF 10/16/2025 11:46 AM [facility] Bacteria, Urine Moderate(A) Negative /HPF 10/16/2025 11:46 AM [facility] Urine Urine specimen from urethra / Unknown Non-blood Collection / Unknown 10/16/2025 10/16/2025 10:00 AM EST us Janice Núñez MD LAB URINE ORDERABLES Final Resul t [facility] [address] [place] [address], * (ABNORMAL) Culture urine (10/16/2025 12:00 AM EST) Only the most recent of2 resultswithin the time period is included. Culture, Urine 50,000-100,000 CFU/mL Klebsiella aerogenes(A) SERGIO 10/18/2025 10:36 AM EST [facility] Comment: This is an edited result. [...] MICROBIOLOGY - GENERAL ORDER KANE Final Result [facility] [address] [place] [address], * PET CT Skull to Mid Thigh Subsequent (10/08/2025 11:46 AM EST) Anatomical Region Laterality Modality Body Radiographic Heydi ging 10/15/2025 1:25 PM EST Impressions 10/15/2025 2:01 PM EST Impression: Marked decrease in size in left upper lobe mass with decreased FDG uptake. -------- FINAL REPORT -------- Dictated By: Blanca Pruett Dictated Date: 10/15/2025 13:25 ET Assigned Physician: Blanca Pruett Reviewed and Electronically Signed By: Blanca Pruett Signed Date: 10/15/2025 14:01 ET Workstation ID: [id number] Transcribed By: Self Edit Transcribed Date: 10/15/2025 13:25 ET Narrative 10/15/2025 2:[address] Scan CLINICAL HISTORY: lung cancer . Technique: The patient received an intravenous injection of fluorine 18 fluorodeoxyglucose. After a short delay a whole body PET scan was obtained from the skull through midthighs. Additionally a low dose, unenhanced CT scan was acquired for attenuation correction and anatomic localization. The CT portion of the examination was done strictly for attenuation correction and is not a true diagnostic CT examination. Total DLP: 1225 mGy/cm Blood glucose level in mg/dl: 137 FDG dose in mCi: 12.5 Comparison: PET/CT 02/08/[address] 04/24/2025. Findings: Head and Neck: No hypermetabolic abnormality. Chest: Decreased size of the left upper lobe masslike consolidation now with scarlike appearance with minimal FDG uptake within the left upper lobe nodularity/scarring SUVmax = 2.14, prior SUV was 8.1 on 02/08/2025. There is significant motion artifact which limits evaluation of the lungs but there is no concerning hypermetabolic nodule otherwise. Coronary artery and valvular calcifications and cardiomegaly. No adenopathy. Right chest wall port. Abdomen and Pelvis: No hypermetabolic abnormality. Diverticulosis. Musculoskeletal: No hypermetabolic abnormality. Remote right rib deformity and multilevel degenerative changes. Procedure Note Blanca Pruett MD - 10/15/[address] Scan CLINICAL HISTORY: lung cancer . Technique: The patient received an intravenous injection of fluorine 18fluorodeoxyglucose. After a short delay a whole body PET scan wasobtained from the skull through midthighs. Additionally a low dose,unenhanced CT scan was acquired for attenuation correction and anatomiclocalization. The CT portion of the examination was done strictly forattenuation correction and is not a true diagnostic CT examination. TotalDLP: 1225 mGy/cm Blood glucose level in mg/dl: 137 FDG dose in mCi: 12.5 Comparison: PET/CT 02/08/[address] 04/24/2025. Findings: Head and Neck: No hypermetabolic abnormality. Chest: Decreased size of the left upper lobe masslike consolidation nowwith scarlike appearance with minimal FDG uptake within the left upperlobe nodularity/scarring SUVmax = 2.14, prior SUV was 8.1 on 02/08/2025.There is significant motion artifact which limits evaluation of the lungsbut there is no concerning hypermetabolic nodule otherwise. Coronaryartery and valvular calcifications and cardiomegaly. No adenopathy.Right chest wall port. Abdomen and Pelvis: No hypermetabolic abnormality. Diverticulosis. Musculoskeletal: No hypermetabolic abnormality. Remote right ribdeformity and multilevel degenerative changes. IMPRESSION: Impression: Marked decrease in size in left upper lobe mass with decreased FDGuptake. -------- FINAL REPORT -------- Dictated By: Blanca Pruett Dictated Date: 10/15/2025 13:25 ET Assigned Physician: Blanca Pruett Reviewed and Electronically Signed By: Blanca Pruett Signed Date: 10/15/2025 14:01 ET Workstation ID: [id number] Transcribed By: Self Edit Transcribed Date: 10/15/2025 13:25 ET Lashanda Mcgill DO IMG NM PROCEDURES Fin al Result * ECG-Annotated (09/07/2025) us Provider Onbase MD ECG ORDERABLES Final Result * (ABNORMAL) Lipid panel with reflex to direct LDL (09/06/2025 6:02 AM EDT) Cholesterol 239(H) 0 - 200 mg/dL LAB CHEMISTRY METHOD 09/06/2025 1:02 PM EDT [facility] Triglycerides 99 0 - 150 mg/dL LAB CHEMISTRY METHOD 09/06/2025 1:02 PM EDT [facility] HDL 98 >=40 mg/dL LAB CHEMISTRY METHOD 09/06/2025 1:02 PM EDT [facility] LDL Calculated 121(H) 0 - 100 mg/dL LAB CHEMISTRY METHOD 09/06/2025 1:02 PM EDT [facility] Comment:Estimated LDL Calcul ated using equation: Total cholesterol - HDL cholesterol - (Triglycerides/5) VLDL Cholesterol Artur 19.8 mg/dL LAB CHEMISTRY METHOD 09/06/2025 1:02 PM EDT [facility] Non HDL Chol. (LDL+VLDL) 141 <145 mg/dL LAB CHEMISTRY METHOD 09/06/2025 1:02 PM EDT [facility] Chol/HDL Ratio 2.4 0.0 - 4.4 LAB CHEMISTRY METHOD 09/06/2025 [facility] Blood Blood sample taken from central line / Unknown Venipuncture / Unknown 09/06/2025 6:02 AM EDT 09/06/2025 6:18 AM EDT us Sathish Erwin MD LAB BLOOD ORDERABLES Final Re sult [facility] [address] [place] [address], [place] [phone] * (ABNORMAL) CBC auto differential (09/06/2025 6:02 AM EDT) Only the most recent of2 resultswithin the time period is included. WBC 3.5(L) 4.8 - 10.8 K/mcL LAB HEMETOLOGY METHOD 09/06/2025 6:37 AM EDT [facility] RBC 3.80 3.80 - 4.80 M/mcL LAB HEMETOLOGY METHOD 09/06/2025 6:37 AM [facility] Hemoglobin 10.6(L) 11.5 - 16.0 g/dL LAB HEMETOLOGY METHOD 09/06/2025 6:37 AM [facility] Hematocrit 35.9 35.0 - 47.0 % LAB HEMETOLOGY METHOD 09/06/2025 6:37 AM [facility] MCV 94.2 79.0 - 98.0 FL LAB HEMETOLOGY METHOD 09/06/2025 6:37 AM [facility] MCH 27.8 27.0 - 32.0 pcg LAB HEMETOLOGY METHOD 09/06/2025 6:37 AM [facility] MCHC 29.5(L) 32.0 - 37.0 g/dL LAB HEMETOLOGY METHOD 09/06/2025 6:37 AM [facility] RDW 15.9(H) 11.0 - 15.0 % LAB HEMETOLOGY METHOD 09/06/2025 6:37 AM [facility] Platelets 332 130 - 400 K/mcL LAB HEMETOLOGY METHOD 09/06/2025 6:37 AM [facility] MPV 9.2 7.0 - 11.0 FL LAB HEMETOLOGY METHOD 09/06/2025 6:37 AM [facility] NRBC 0.0 <1.0 % LAB HEMETOLOGY METHOD 09/06/2025 6:37 AM [facility] NRBC Absolute 0.00 <0.10 K/mcL LAB HEMETOLOGY METHOD 09/06/2025 6:37 AM [facility] Neutrophils Relative 64.7 % LAB HEMETOLOGY METHOD 09/06/2025 6:37 AM [facility] Lymphocytes Relative 17.1 % LAB HEMETOLOGY METHOD 09/06/2025 6:37 AM [facility] Monocytes Relative 14.2 % LAB HEMETOLOGY METHOD 09/06/2025 6:37 AM [facility] Eosinophils Relative 1.4 % LAB HEMETOLOGY METHOD 09/06/2025 6:37 AM [facility] Basophils Relative 1.2 % LAB HEMETOLOGY METHOD 09/06/2025 6:37 AM EDT [facility] Immature Granulocytes Relative 1.4 % LAB HEMETOLOGY METHOD 09/06/2025 6:37 AM EDT [facility] Neutrophils Absolute 2.23 1.50 - 7.00 K/mcL LAB HEMETOLOGY METHOD 09/06/2025 6:37 AM EDT [facility] Lymphocytes Absolute 0.59(L) 1.00 - 5.00 K/mcL LAB HEMETOLOGY METHOD 09/06/2025 6:37 AM EDT [facility] Monocytes Absolute 0.49 0.20 - 1.00 K/mcL LAB HEMETOLOGY METHOD 09/06/2025 6:37 AM EDT [facility] Eosinophils Absolute 0.05 0.00 - 0.50 K/mcL LAB HEMETOLOGY METHOD 09/06/2025 6:37 AM EDT [facility] Basophils Absolute 0.04 0.00 - 0.20 K/mcL LAB HEMETOLOGY METHOD 09/06/2025 6:37 AM EDT [facility] Immature Granulocytes Absolute 0.05(H) 0.00 - 0.03 K/mcL LAB HEMETOLOGY METHOD 09/06/2025 6:37 AM EDT [facility] Blood Blood sample taken from central line / Unknown Venipuncture / Unknown 09/06/2025 6:02 AM EDT 09/06/2025 6:18 AM EDT us Ayaan Fregoso MD LAB BLOOD ORDERABLES Final Re sult [facility] [address] [place] [address], * Lamotrigine level (09/06/2025 6:02 AM EDT) Lamotrigine (Lamictal) Level <0.2 2.0 - 15.0 ug/mL 09/09/2025 11:10 AM EDT [facility] Comment: Lamotrigine toxic level: >20 ug/mL The reference range is not well established. It may be as wide as 1 - 20 ug/mL. If applicable, any drug confirmation testing reported here was developed and the performance characteristics determined by [facility]. This confirmation testing has not been cleared or approved by the FDA. The laboratory is regulated under CLIA as qualified to perform high-complexity testing. This test is used for patient testing purposes. It should not be regarded as investigational or for research. Test performed at [facility], [address] , [place] [address] Emani Noble MD, PhD - [employer] Blood Blood sample taken from central line / Unknown Venipuncture / Unknown 09/06/2025 6:02 AM EDT 09/06/2025 6:17 AM EDT Emani Jackson NP LAB BLOOD ORDERABLES Fin al Result [facility] [address] [place] [address] * Magnesium (09/06/2025 6:02 AM EDT) Only the most recent of2 resultswithin the time period is included. Magnesium 1.9 1.9 - 2.6 mg/dL LAB CHEMISTRY METHOD 09/06/2025 7:07 AM EDT [facility] Blood Blood sample taken from central line / Unknown Venipuncture / Unknown 09/06/2025 6:02 AM EDT 09/06/2025 6:18 AM EDT us Ayaan Fregoso MD LAB BLOOD ORDERABLES Final Re sult [facility] [address] [place] [address], [place] [phone] * (ABNORMAL) Ammonia (09/06/2025 6:02 AM EDT) Ammonia 55(H) 11 - 35 mcmol/L LAB CHEMISTRY METHOD 09/06/2025 6:56 AM EDT [facility] Blood Blood sample taken from central line / Unknown Venipuncture / Unknown 09/06/2025 6:02 AM EDT 09/06/2025 6:18 AM EDT us Emanielsie Jackson PARK ATTENDANT LAB BLOOD ORDERABLES Fin al Result [facility] [address] [place] [address], [place] [phone] * MR Brain wo and w Contrast (09/05/2025 6:21 PM EDT) Anatomical Region Laterality Modality Head and Neck Magnetic Resonan ce 09/05/2025 7:17 PM EDT Impressions 09/05/2025 7:17 PM EDT No acute findings. This document has been electronically signed by: Gonzalo Dorantes MD on 09/05/2025 19:17:56 Narrative 09/05/2025 7:17 PM EDT INDICATION: Confusion, acute, unexplained MR Brain with and without gadolinium Comparison: MR/[place]/SR - MR BRAIN WO AND W CONTRAST [...] MR Brain with and without gadolinium Comparison: MR/[place]/SR - MR BRAIN WO AND W CONTRAST [...] Gonzalo Dorantes MD on 09/05/2025 19:17:56 Emani Hernandez Renetta PARK ATTENDANT IMG MRI PROCEDURES Final Result * Respiratory virus panel molecular study (09/05/2025 2:10 PM EDT) Adenovirus Detection by PCR Not Detected Not Detected LAB MICROBIOLOGY METHOD 09/05/2025 3:59 PM EDT [facility] Influenza A PCR Not Detected Not Detected LAB MICROBIOLOGY METHOD 09/05/2025 3:59 PM EDT [facility] Influenza B PCR Not Detected Not Detected LAB MICROBIOLOGY METHOD 09/05/2025 3:59 PM EDT [facility] Coronavirus 229E Not Detected Not Detected LAB MICROBIOLOGY METHOD 09/05/2025 3:59 PM EDT [facility] Coronavirus HKU1 Not Detected Not Detected LAB MICROBIOLOGY METHOD 09/05/2025 3:59 PM EDT [facility] Coronavirus OC43 Not Detected Not Detected LAB MICROBIOLOGY METHOD 09/05/2025 3:59 PM EDT [facility] Coronavirus NL63 Not Detected Not Detected LAB MICROBIOLOGY METHOD 09/05/2025 3:59 PM EDT [facility] Parainfluenza Virus 1 Not Detected Not Detected LAB MICROBIOLOGY METHOD 09/05/2025 3:59 PM EDT [facility] Parainfluenza Virus 2 Not Detected Not Detected LAB MICROBIOLOGY METHOD 09/05/2025 3:59 PM EDT [facility] Parainfluenza Virus 3 Not Detected Not Detected LAB MICROBIOLOGY METHOD 09/05/2025 3:59 PM EDT [facility] Parainfluenza Virus 4 Not Detected Not Detected LAB MICROBIOLOGY METHOD 09/05/2025 3:59 PM EDT [facility] RSV PCR Not Detected Not Detected LAB MICROBIOLOGY METHOD 09/05/2025 3:59 PM EDT [facility] Human Metapneumovirus A and B Not Detected Not Detected LAB MICROBIOLOGY METHOD 09/05/2025 3:59 PM EDT [facility] Rhinovirus/Entero virus Not Detected Not Detected LAB MICROBIOLOGY METHOD 09/05/2025 3:59 PM EDT [facility] Bordetella pertussis Not Detected Not Detected LAB MICROBIOLOGY METHOD 09/05/2025 3:59 PM EDT [facility] Bordetella parapertussis Not Detected Not Detected LAB MICROBIOLOGY METHOD 09/05/2025 3:59 PM EDT [facility] Mycoplasma pneumo by PCR Not Detected Not Detected LAB MICROBIOLOGY METHOD 09/05/2025 3:59 PM EDT [facility] Chlamydia pneumoniae Not Detected Not Detected LAB MICROBIOLOGY METHOD 09/05/2025 3:59 PM EDT [facility] SARS COV-2 Not Detected Not Detected LAB MICROBIOLOGY METHOD 09/05/2025 3:59 PM EDT [facility] Swab Both anterior nares / Unknown Non-blood Collection / Unknown 09/05/2025 2:10 PM EDT 09/05/2025 2:18 PM EDT [facility] - 09/05/2025 3:59 PM EDT Testing was performed using the [employer] Respiratory Pathogen PCR Assay. All results must [...] are below the limit of detection. us Eamni Jackson NP LAB MICROBIOLOGY - GENER AL ORDERABLES Final Result [facility] [address] [place] [address], * (ABNORMAL) POCT Glucose, blood (09/05/2025 12:33 PM EDT) [facility] Glucose POCT 122(H) 70 - 100 mg/dL 09/05/2025 12:33 PM EDT [facility] Blood Capillary blood specimen / Unknown 09/05/2025 12:33 PM EDT 09/05/2025 12:35 PM EDT us Ayaan Fregoso MD LAB POINT OF CARE TE ST DOCKED DEVICE UNSOLICITED RESULTS Final Result Performing Organization Address [facility]/ZIP Co de Phone Number [facility] [address] [place] [address], [place] [phone] * (ABNORMAL) Venous blood gas (09/05/2025 12:33 PM EDT) [facility] pH, Feliz 7.35 7.32 - 7.42 pH 09/05/2025 12:44 PM EDT [facility] pCO2, Feliz 93(HH) 41 - 51 mmHg 09/05/2025 12:44 PM EDT [facility] pO2, Feliz 43(H) 25 - 40 mmHg 09/05/2025 12:44 PM EDT [facility] HCO3, Venous 40.5(H) 22.0 - 26.0 mmol/L 09/05/2025 12:44 PM EDT [facility] O2 Sat, Feliz 74.3 % 09/05/2025 12:44 PM EDT [facility] Base Excess, Feliz 20.8(H) -2.0 - 2.0 mmol/L 09/05/2025 12:44 PM EDT [facility] Blood Venous blood specimen / Unknown Venipuncture / Unknown 09/05/2025 12:33 PM EDT 09/05/2025 12:38 PM EDT us Ayaan Fregoso MD LAB BLOOD ORDERABLES Final Re sult [facility] [address] [place] [address], [place] [phone] * XR Chest 1 View (09/05/2025 12:28 [...] Signed Date: 09/05/2025 13:13 ET Workstation ID: [id number] Transcribed By: Self Edit Transcribed Date: 09/05/2025 [...] Signed Date: 09/05/2025 13:13 ET Workstation ID: [id number] Transcribed By: Self Edit Transcribed Date: 09/05/2025 [...] ED Physician in the absence of a trencher driver: yes Interpretation: Interpretation: normal Details: Sinus tachycardia with a ventricular rate of 101 bpm. Normal [place], QRS, QTc, axis. No acute ischemic changes us Glenroy Paez MD ECG ORDERABLES Final Result * Troponin I high sensitivity (NOW and then in 1 hour) (09/05/2025 11:20 AM EDT) [facility] High Sensitivity Troponin I 10 <=54 ng/L LAB CHEMISTRY METHOD 09/05/2025 12:11 PM EDT [facility] Blood Venous blood specimen / Unknown Venipuncture / Unknown 09/05/2025 11:20 AM EDT 09/05/2025 11:38 AM EDT Art [facility] - 09/05/2025 12:11 PM EDT High levels of biotin in samples may falsely decrease hsTroponin values. Use caution when interpreting hsTroponin results in patients taking biotin who exhibit renal impairment (eGFR <60) or in patients taking more than 20 mg/day of biotin. Glenroy Paez MD LAB BLOOD ORDERABLES Final Res ult [facility] [address] [place] [address], * Activated partial thromboplastin time (09/05/2025 11:20 AM EDT) aPTT 37.4 24.1 - 39.3 sec LAB COAGULATION METHOD 09/05/2025 11:53 AM EDT [facility] Blood Venous blood specimen / Unknown Venipuncture / Unknown 09/05/2025 11:20 AM EDT 09/05/2025 11:38 AM EDT us Glenroy Paez MD LAB BLOOD ORDERABLES Final Res ult Performing Organization Address [facility]/ZIP Co de Phone Number [facility] [address] [place] [address], [place] [phone] * (ABNORMAL) Prothrombin time with INR (09/05/2025 11:20 AM EDT) Protime 14.3(H) 10.6 - 13.9 sec LAB COAGULATION METHOD 09/05/2025 11:52 AM EDT [facility] INR 1.1 LAB COAGULATION METHOD 09/05/2025 11:52 AM EDT [facility] Blood Venous blood specimen / Unknown Venipuncture / Unknown 09/05/2025 11:20 AM EDT 09/05/2025 11:38 AM EDT us Glenroy Paez MD LAB BLOOD ORDERABLES Final Res ult Performing Organization Address [facility] Co de Phone Number [facility] [address] [place] [address], [place] [phone] * C-reactive protein (09/05/2025 11:20 AM EDT) C-Reactive Protein 0.42 <=0.50 mg/dL LAB CHEMISTRY METHOD 09/05/2025 2:40 PM EDT [facility] Blood Venous blood specimen / Unknown Venipuncture / Unknown 09/05/2025 11:20 AM EDT 09/05/2025 11:38 AM EDT us Ayaan Fregoso MD LAB BLOOD ORDERABLES Final Re sult [facility] [address] [place] [address], [place] [phone] * Hepatic function panel (09/05/2025 11:20 AM EDT) Total Protein 6.7 6.0 - 8.0 g/dL LAB CHEMISTRY METHOD 09/05/2025 2:40 PM EDT [facility] Albumin 3.6 3.2 - 5.0 g/dL LAB CHEMISTRY METHOD 09/05/2025 2:40 PM EDT [facility] Total Bilirubin 0.3 0.0 - 1.4 mg/dL LAB CHEMISTRY METHOD 09/05/2025 2:40 PM EDT [facility] Bilirubin, Direct 0.1 0.0 - 0.3 mg/dL LAB CHEMISTRY METHOD 09/05/2025 2:40 PM EDT [facility] Bilirubin, Indirect 0.2 0.0 - 1.1 mg/dL LAB CHEMISTRY METHOD 09/05/2025 2:40 PM EDT [facility] ALT (SGPT) 22 10 - 60 unit/L LAB CHEMISTRY METHOD 09/05/2025 2:40 PM EDT [facility] AST (SGOT) 20 10 - 42 unit/L LAB CHEMISTRY METHOD 09/05/2025 2:40 PM EDT [facility] Alkaline Phosphatase 74 42 - 121 unit/L LAB CHEMISTRY METHOD 09/05/2025 2:40 PM EDT [facility] Blood Venous blood specimen / Unknown Venipuncture / Unknown 09/05/2025 11:20 AM EDT 09/05/2025 11:38 AM EDT Ayaan Fregoso MD LAB BLOOD ORDERABLES Final Re sult [facility] [address] [place] [address], [place] [phone] * ECG 12 lead (09/05/2025 11:11 AM EDT) Ventricular Rate ECG 101 BPM GEMUSE Atrial Rate 101 BPM GEMUSE P-R Interval 180 ms GEMUSE QRS Duration 86 ms GEMUSE Q-T Interval 318 ms GEMUSE QTc 412 ms GEMUSE P Wave [place] 91 degrees GEMUSE R [place] 70 degrees GEMUSE T [place] 31 degrees GEMUSE ECG Interpretation Sinus tachycardia Nonspecific ST abnormality Abnormal ECG When compared with ECG of 05-JUL-2025 21:40, heart rate has increased by [address] abnormality is present Confirmed by Reggie KHAN YUFENG ([id number]) on 09/05/2025 1:31:24 PM GEMUSE 09/05/2025 11:1 1 AM EDT 09/05/2025 1:31 PM EDT us Glenroy Paez MD ECG ORDERABLES Final Result GEMUSE * CT Head Stroke wo Contrast [...] Signed Date: 09/05/2025 10:52 ET Workstation ID: [id number] Transcribed By: Self Edit Transcribed Date: 09/05/2025 10:46 ET Narrative 09/05/2025 10:52 AM EDT INDICATION: Generalized weakness, slurred speech, dizziness, headache Technique: Axial images were obtained from the skull base to the vertex without contrast enhancement. Coronal and sagittal reformats obtained. Scanner: GE LightSpeed 64 slice VCT Dose reduction technique: [...] enhancement. Coronal and sagittal reformats obtained. Scanner: [employer] LightSpeed 64 slice VCT Dose reduction technique: [...] Signed Date: 09/05/2025 10:52 ET Workstation ID: [id number] Transcribed By: Self Edit Transcribed Date: 09/05/2025 10:46 ET us Glenroy Paez MD IMG CT PROCEDURES Final [...] Signed Date: 09/05/2025 11:59 ET Workstation ID: [id number] Transcribed By: Self Edit Transcribed Date: 09/05/2025 [...] reconstructions performed on a computer workstation. Scanner: Trivnet 64slice VCT Dose reduction technique: ASIR (Adaptive [...] reconstructions performed on a computer workstation. Scanner: Trivnet 64slice VCT Dose reduction technique: ASIR (Adaptive [...] Patent left posterior communicating artery joins left [id number] to form the left posterior cerebral artery. [...] Signed Date: 09/05/2025 11:59 ET Workstation ID: [id number] Transcribed By: Self Edit Transcribed Date: 09/05/2025 11:46 ET Glenroy Paez MD IMG CT PROCEDURES Final Result * Vitamin D 25 hydroxy (08/20/2025 4:50 AM EDT) Vit D, 25-Hydroxy 37.7 30.0 - 80.0 ng/mL LAB CHEMISTRY METHOD 08/20/2025 12:17 PM EDT [facility] Blood Venous blood specimen / Unknown Venipuncture / Unknown 08/20/2025 4:50 AM EDT 08/20/2025 9:32 AM EDT us Janice Núñez MD LAB BLOOD ORDERABLES Final Resul t Performing Organization Address City/[facility]/ZIP Co de Phone Number [facility] [address] [place] [address], [place] [phone] * Thyroid stimulating hormone (08/20/2025 4:50 AM EDT) Pathologist [facility] TSH 2.01 0.40 - 4.00 mcIU/mL LAB CHEMISTRY METHOD 08/20/2025 12:18 PM EDT [facility] Blood Venous blood specimen / Unknown Venipuncture / Unknown 08/20/2025 4:50 AM EDT 08/20/2025 9:32 AM EDT us Janice Núñez MD LAB BLOOD ORDERABLES Final Resul t Performing Organization Address [facility] Co de Phone Number [facility] [address] [place] [address], [place] [phone] * Hemoglobin A1c (08/20/2025 4:50 AM EDT) [facility] Hemoglobin A1C 5.8 <6.5 % LAB CHEMISTRY METHOD 08/20/2025 12:16 PM EDT [facility] Mean Bld Glu Estim. 120 mg/dL LAB CHEMISTRY METHOD 08/20/2025 12:16 PM EDT [facility] Blood Venous blood specimen / Unknown Venipuncture / Unknown 08/20/2025 4:50 AM EDT 08/20/2025 9:32 AM EDT us Janice Núñez MD LAB BLOOD ORDERABLES Final Resul t Performing Organization Address City/[facility]/ZIP Co de Phone Number [facility] [address] [place] [address], [place] [phone] * (ABNORMAL) Comprehensive metabolic panel (08/20/2025 4:50 AM EDT) [facility] Sodium 140 133 - 145 mmol/L LAB CHEMISTRY METHOD 08/20/2025 11:04 AM [facility] Potassium 3.3(L) 3.5 - 5.5 mmol/L LAB CHEMISTRY METHOD 08/20/2025 11:04 AM [facility] Chloride 102 96 - 110 mmol/L LAB CHEMISTRY METHOD 08/20/2025 11:04 AM [facility] CO2 31 21 - 32 mmol/L LAB CHEMISTRY METHOD 08/20/2025 11:04 AM [facility] Anion Gap 7 3 - 11 LAB CHEMISTRY METHOD 08/20/2025 11:04 AM [facility] Glucose 81 70 - 100 mg/dL LAB CHEMISTRY METHOD 08/20/2025 11:04 AM [facility] BUN 19 5 - 25 mg/dL LAB CHEMISTRY METHOD 08/20/2025 11:04 AM [facility] Creatinine 0.78 0.50 - 1.10 mg/dL LAB CHEMISTRY METHOD 08/20/2025 11:04 AM [facility] eGFR 81 >=60 mL/min/1. 73m2 LAB CHEMISTRY METHOD 08/20/2025 11:04 AM [facility] Comment:Calculation based on the Chronic Kidney Disease Epidemiology Collaboration (CKD-EPI) equation refit without adjustment for race. BUN/Creatinine Ratio 24.4 LAB CHEMISTRY METHOD 08/20/2025 11:04 AM [facility] Calcium 8.4(L) 8.5 - 10.5 mg/dL LAB CHEMISTRY METHOD 08/20/2025 11:04 AM [facility] AST (SGOT) 18 10 - 42 unit/L LAB CHEMISTRY METHOD 08/20/2025 11:04 AM [facility] ALT (SGPT) 29 10 - 60 unit/L LAB CHEMISTRY METHOD 08/20/2025 11:04 AM [facility] Alkaline Phosphatase 78 42 - 121 unit/L LAB CHEMISTRY METHOD 08/20/2025 11:04 AM EDT [facility] Total Protein 5.9(L) 6.0 - 8.0 g/dL LAB CHEMISTRY METHOD 08/20/2025 11:04 AM EDT [facility] Albumin 3.2 3.2 - 5.0 g/dL LAB CHEMISTRY METHOD 08/20/2025 11:04 AM EDT [facility] Total Bilirubin 0.1 0.0 - 1.4 mg/dL LAB CHEMISTRY METHOD 08/20/2025 11:04 AM EDT [facility] Blood Venous blood specimen / Unknown Venipuncture / Unknown 08/20/2025 4:50 AM EDT 08/20/2025 9:32 AM EDT Janice Núñez MD LAB BLOOD ORDERABLES Final Resul t [facility] [address] [place] [address], * Colonoscopy (04/27/2024) Pathologist [facility] Colonoscopy No Interpretation , Abstracted Anatomical Region Laterality Modality Other Historical Provider HEALTH MAINTENANCE Final Result * Depression Screening (04/16/2024) Pathologist [facility] Depression Screening Abstracted Historical Provider HEALTH MAINTENANCE Final Result * [facility] SCREENING DIGITAL (03/22/2024 8:50 AM EDT) Anatomical Region Laterality Modality Mammography 03/21/2024 3:07 PM EDT Narrative 03/22/2024 8:50 AM EDT [facility] Diagnostic Imaging Department [address] [place] [address] Patient: DENISA VERDUZCO /Age/Sex: 1955 - 68 - F Unit#: [id number] Location/Status: SPDIMAM/REG CLI Mnemonic/Ordering Site: [facility] Ordering Physician: YANN MANZANARES [facility] Screening Digital - 03/21/24 - Report Status:Signed EXAM: [facility] Screening Digital EXAM DATE AND TIME: 03/21/2024 3:49 PM HISTORY: Screening. Left breast biopsy in 2016, pathology benign. COMPARISON: 02/16/23, 09/21/19, 09/18/18, 09/15/17 TECHNIQUE: Bilateral digital breast tomosynthesis was performed in the CC and MLO projections. Computer aided detection with High-Tech Bridge 3D 3.1 was employed. TISSUE DENSITY: b. [...] Procedure Note Erica Treadwell MD - 07/16/2024 [facility] Diagnostic Imaging Department [address] [place] [id number] Patient: DENISA VERDUZCO /Age/Sex: 1955 - 68 - F Unit#: [id number] Location/Status: [facility] CLI Mnemonic/Ordering Site: [facility] Ordering Physician: YANN MANZANARES [facility] Screening Digital - 03/21/24 - Report Status:Signed EXAM: [facility] Screening Digital EXAM DATE AND TIME: 03/21/2024 3:49 PM HISTORY: Screening. Left breast biopsy in 2016, pathology benign. COMPARISON: 02/16/23, 09/21/19, 09/18/18, 09/15/17 TECHNIQUE: Bilateral digital breast tomosynthesis was performed in the CCand MLO projections. Computer aided detection with iCAD FarmBot 3D 3.1was employed. TISSUE DENSITY: b. There [...] 03/22/24848 Sign date/Time: 03/22/24849 Yann Manzanares MD IM BI PROCEDURES Final Result * [facility] DEXA AXIAL SKELETON (03/22/2024 8:14 AM EDT) Anatomical Region Laterality Modality Mammography 03/21/2024 3:07 PM EDT Narrative 03/22/2024 8:14 AM EDT [facility] Diagnostic Imaging Department [address] [place] [address] Patient: DAXDENISA /Age/Sex: 1955 - 68 - F Unit#: [id number] [facility] Ordering Physician: YANN MANZANARES [facility] Dexa Axial Skeleton - 03/21/24 [...] probability of hip fracture of 7.1%. Code 43608 Dictating Physician: MILTON ORTEGA MD Electronically Signed by: MILTON ORTEGA MD Dic Date/Time: 03/22/24812 Sign date/Time: 03/22/24813 Procedure Note Milton Ortega MD - 07/16/2024 [facility] Diagnostic Imaging Department [address] [place], [place] [id number] Patient: DENISA VERDUZCO Maki/Age/Sex: 1955 - 68 - F Unit#: [id number] Location/Status: [facility] Mnemonic/Ordering Site: [facility] Ordering Physician: YANN MANZANARES [...] density of the femurs bilaterally is 0.912 gm/be7yokfi is 90% of that of young normals [...] probability of hip fracture of 7.1%. Code 69288 Dictating Physician: MILTON ORTEGA MD Electronically Signed by: MILTON ORTEGA MD Dic Date/Time: 03/22/24812 Sign date/Time: 04/25/24 0814 Result [facility] Yann Manzanares MD IMG BI PROCEDURES Final Result * Falls Risk Assessment (02/09/2024) Falls Risk Assessment Abstracted Historical Provider HEALTH MAINTENANCE Final Result * Hepatitis C Screening (02/09/2024) [facility] Hepatitis C Screening Abstracted Historical Provider HEALTH MAINTENANCE Final Result from Last 3 Months or Most Recently Relevant to Health Maintenance Insurance [employer] Advance Directives Documents on File Type Date Recorded 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
--- OUTSIDE RECORDS SUMMARY | 2025-11-10 01:52 | XMS_ITS | Encounter Summary ---
Author Organization [facility] Address [address] [place] [address] Care Team Providers Care Block Chopper Hand Name Role Phone Kinjal Barron PHARMACIST HELPER Primary Care Provid er Encounter Details Date Type Department Care Team (Late st Contact Info) Description 09/03/[address] [facility] - Main Lab [address] [place] [address] Janice Núñez MD [address] [place], [place] [phone] Malignant neoplasm of unspecified part of left [...] 10:43 AM EDT Bhargavi Hanna RN * Holt Suicide Severity Rating Scale (Screener/Recent Self-Report) Question Answer Date of Assessment Author 1. Wish to be (Past 1 Month) No 09/05/2025 10:43 AM CECET Greg Suarez RN 2. Non-Specific Active Suicidal Thoughts (Past 1 Month) No 09/05/2025 10:43 AM CECET Greg Suarez RN 6. Suicidal Behavior (Lifetime) No 09/05/2025 10:43 AM Greg Aldana RN documented as of this encounter Mental [...] [facility] Hematology Oncology [address] [place] [phone] Lashanda Mcgill, [address] [place] [address] documented as of this encounter Procedures Procedure [...] mmol/L LAB CHEMISTRY METHOD 09/04/2025 11:05 AM [facility] Potassium 3.5 3.5 - 5.5 mmol/L LAB CHEMISTRY METHOD 09/04/2025 11:05 AM [facility] Chloride 99 96 - 110 mmol/L LAB CHEMISTRY METHOD 09/04/2025 11:05 AM [facility] CO2 34(H) 21 - 32 mmol/L LAB CHEMISTRY METHOD 09/04/2025 11:05 AM [facility] Anion Gap 6 3 - 11 LAB CHEMISTRY METHOD 09/04/2025 11:05 AM [facility] Glucose 88 70 - 100 mg/dL LAB CHEMISTRY METHOD 09/04/2025 11:05 AM [facility] BUN 13 5 - 25 mg/dL LAB CHEMISTRY METHOD 09/04/2025 11:05 AM [facility] Creatinine 0.86 0.50 - 1.10 mg/dL LAB CHEMISTRY METHOD 09/04/2025 11:05 AM [facility] eGFR 72 >=60 mL/min/1. 73m2 LAB CHEMISTRY METHOD 09/04/2025 11:05 AM [facility] Comment:Calculation based on the Chronic Kidney Disease Epidemiology Collaboration (CKD-EPI) equation refit without adjustment for race. BUN/Creatinine Ratio 15.1 LAB CHEMISTRY METHOD 09/04/2025 11:05 AM [facility] Calcium 8.8 8.5 - 10.5 mg/dL LAB CHEMISTRY METHOD 09/04/2025 11:05 AM [facility] Blood Venous blood specimen / Unknown Venipuncture / Unknown 09/04/2025 6:53 AM EDT 09/04/2025 9:34 AM EDT us Janice Núñez MD LAB BLOOD ORDERABLES Final Resul t [facility] [address] [place] [address], * (ABNORMAL) Complete blood count (09/04/2025 6:53 AM EDT) WBC 4.1(L) 4.8 - 10.8 K/mcL LAB HEMETOLOGY METHOD 09/04/2025 10:12 [facility] RBC 4.00 3.80 - 4.80 M/mcL LAB HEMETOLOGY METHOD 09/04/2025 10:12 AM [facility] Hemoglobin 10.9(L) 11.5 - 16.0 g/dL LAB HEMETOLOGY METHOD 09/04/2025 10:12 AM T [facility] Hematocrit 37.5 35.0 - 47.0 % LAB HEMETOLOGY METHOD 09/04/2025 10:12 AM [facility] MCV 94.5 79.0 - 98.0 FL LAB HEMETOLOGY METHOD 09/04/2025 10:12 AM [facility] MCH 27.5 27.0 - 32.0 pcg LAB HEMETOLOGY METHOD 09/04/2025 10:12 AM EDT [facility] MCHC 29.1(L) 32.0 - 37.0 g/dL LAB HEMETOLOGY METHOD 09/04/2025 10:12 AM [facility] RDW 15.9(H) 11.0 - 15.0 % LAB HEMETOLOGY METHOD 09/04/2025 10:12 AM [facility] Platelets 356 130 - 400 K/mcL LAB HEMETOLOGY METHOD 09/04/2025 10:12 AM [facility] MPV 9.4 7.0 - 11.0 FL LAB HEMETOLOGY METHOD 09/04/2025 10:12 AM [facility] NRBC 0.0 <1.0 % LAB HEMETOLOGY METHOD 09/04/2025 10:12 AM [facility] NRBC Absolute 0.00 <0.10 K/mcL LAB HEMETOLOGY METHOD 09/04/2025 10:12 AM [facility] Blood Venous blood specimen / Unknown Venipuncture / Unknown 09/04/2025 6:53 AM EDT 09/04/2025 10:12 AM EDT us Janice Núñez MD LAB BLOOD ORDERABLES Final Resul t [facility] [address] [place] [address], documented in this encounter Visit Diagnoses Diagnosis [...] documented as of this encounter Care Teams Block Chopper Hand Relationship Specialty Start Date End Date Kinjal Barron FNP [address] [place] [phone] PCP - General Family Medicine 03/06/25 documented as of this encounter
--- OUTSIDE RECORDS SUMMARY | 2025-11-10 01:52 | XMS_ITS | Encounter Summary ---
Author Organization [facility] Address [address] [place] [address] Care Team Providers Care Fire Alarm Dispatcher Name Role Phone Kinjal Barron METERS SUPERINTENDENT Primary Care Provid er Encounter Details Date Type Department Care Team (Late st Contact Info) Description 09/10/2025 Lab Requisition [facility] - Main Lab [address] [place] [address] Janice Núñez MD [address] [place], [place] [phone] Malignant neoplasm of unspecified part of left [...] Description 02/18/2026 10:30 AM EDT Office Visit [facility] Hematology Oncology [address] [place] [phone] Lashanda Mcgill, [address] [place] [address] documented as of this encounter Procedures Procedure [...] mmol/L LAB CHEMISTRY METHOD 09/11/2025 9:07 AM [facility] Potassium 3.8 3.5 - 5.5 mmol/L LAB CHEMISTRY METHOD 09/11/2025 9:07 AM [facility] Chloride 100 96 - 110 mmol/L LAB CHEMISTRY METHOD 09/11/2025 9:07 AM [facility] CO2 39(H) 21 - 32 mmol/L LAB CHEMISTRY METHOD 09/11/2025 9:07 AM [facility] Anion Gap 3 3 - 11 LAB CHEMISTRY METHOD 09/11/2025 9:07 AM [facility] Glucose 107(H) 70 - 100 mg/dL LAB CHEMISTRY METHOD 09/11/2025 9:07 AM [facility] BUN 9 5 - 25 mg/dL LAB CHEMISTRY METHOD 09/11/2025 9:07 AM [facility] Creatinine 0.82 0.50 - 1.10 mg/dL LAB CHEMISTRY METHOD 09/11/2025 9:07 AM [facility] eGFR 77 >=60 mL/min/1. 73m2 LAB CHEMISTRY METHOD 09/11/2025 9:07 AM [facility] Comment:Calculation based on the Chronic Kidney Disease Epidemiology Collaboration (CKD-EPI) equation refit without adjustment for race. BUN/Creatinine Ratio 11.0 LAB CHEMISTRY METHOD 09/11/2025 9:07 AM EDT [facility] Calcium 9.1 8.5 - 10.5 mg/dL LAB CHEMISTRY METHOD 09/11/2025 9:07 AM EDT [facility] Blood Venous blood specimen / Unknown Venipuncture / Unknown 09/11/2025 5:56 AM EDT 09/11/2025 8:17 AM EDT us Janice Núñez MD LAB BLOOD ORDERABLES Final Resul t [facility] [address] [place] [address], [place] [phone] * (ABNORMAL) Complete blood count (09/11/2025 5:56 AM EDT) WBC 4.7(L) 4.8 - 10.8 K/mcL LAB HEMETOLOGY METHOD 09/11/2025 8:48 AM T [facility] RBC 3.90 3.80 - 4.80 M/mcL LAB HEMETOLOGY METHOD 09/11/2025 8:48 AM [facility] Hemoglobin 10.8(L) 11.5 - 16.0 g/dL LAB HEMETOLOGY METHOD 09/11/2025 8:48 AM [facility] Hematocrit 37.7 35.0 - 47.0 % LAB HEMETOLOGY METHOD 09/11/2025 8:48 AM T [facility] MCV 95.9 79.0 - 98.0 FL LAB HEMETOLOGY METHOD 09/11/2025 8:48 AM [facility] MCH 27.5 27.0 - 32.0 pcg LAB HEMETOLOGY METHOD 09/11/2025 8:48 AM T [facility] MCHC 28.6(L) 32.0 - 37.0 g/dL LAB HEMETOLOGY METHOD 09/11/2025 8:48 AM EDT [facility] RDW 15.9(H) 11.0 - 15.0 % LAB HEMETOLOGY METHOD 09/11/2025 8:48 AM EDT [facility] Platelets 381 130 - 400 K/mcL LAB HEMETOLOGY METHOD 09/11/2025 8:48 AM EDT [facility] MPV 9.6 7.0 - 11.0 FL LAB HEMETOLOGY METHOD 09/11/2025 8:48 AM EDT [facility] NRBC 0.0 <1.0 % LAB HEMETOLOGY METHOD 09/11/2025 8:48 AM EDT [facility] NRBC Absolute 0.00 <0.10 K/mcL LAB HEMETOLOGY METHOD 09/11/2025 8:48 AM EDT [facility] Blood Venous blood specimen / Unknown Venipuncture / Unknown 09/11/2025 5:56 AM EDT 09/11/2025 8:14 AM EDT Janice Núñez MD LAB BLOOD ORDERABLES Final Resul t [facility] [address] [place] [address], documented in this encounter Visit Diagnoses Diagnosis Malignant neoplasm of unspecified part of left bronchus or lung (CMS/HCC V24, CMS/HCC V28) Chronic respiratory failure with hypercapnia (CMS/HCC V24, CMS/HCC V28) documented in this encounter Additional Health Concerns Assessment Noted Time PHQ-9 Depression Total Score: 1 07/19/20 25 5:04 PM EDT documented as of this encounter Care Teams Fire Alarm Dispatcher Relationship Specialty Start Date End Date Kinjal Barron FNP [address] [place] [phone] PCP - General Family Medicine 03/06/25 documented as of this encounter
--- OUTSIDE RECORDS SUMMARY | 2025-11-10 01:52 | XMS_ITS | Encounter Summary ---
Author Organization [facility] [place] [address] Care Team Providers Care Office Equipment Technician Name Role Phone Kinjal Barron MACHINE SIGN WRITER Primary Care Provid er Encounter Details Date Type Department Care Team (Late st Contact Info) Description 09/01/2025 Lab Requisition [facility] - Main Lab [address] [place] [address] Janice Núñez MD [address] [place], [place] [phone] Frequency of micturition; Fever, unspecified Social History [facility] [address] [place] [phone] Lashanda Mcgill, [address] [place] [address] documented as of this encounter Procedures Procedure [...] reflex microscopic (08/31/2025 4:00 PM EDT) Specific [place] Urine 1.008 1.003 - 1.030 LAB URINALYSIS - AUTOMATED METHOD 09/01/2025 10:46 AM [facility] pH, Urine 6.5 5.0 - 8.0 pH LAB URINALYSIS - AUTOMATED METHOD 09/01/2025 10:46 AM [facility] Leukocytes, Urine Trace(A) Negative LAB URINALYSIS - AUTOMATED METHOD 09/01/2025 10:46 AM [facility] Nitrite, Urine Negative Negative LAB URINALYSIS - AUTOMATED METHOD 09/01/2025 10:46 AM [facility] Protein, Urine Negative <=Trace mg/dL LAB URINALYSIS - AUTOMATED METHOD 09/01/2025 10:46 AM [facility] Glucose, Urine Negative Negative mg/dL LAB URINALYSIS - AUTOMATED METHOD 09/01/2025 10:46 AM [facility] Ketones, Urine Negative Negative mg/dL LAB URINALYSIS - AUTOMATED METHOD 09/01/2025 10:46 AM [facility] Urobilinogen, Urine 0.2 0.2 - 1.0 mg/dL LAB URINALYSIS - AUTOMATED METHOD 09/01/2025 10:46 AM [facility] Bilirubin, Urine Negative Negative LAB URINALYSIS - AUTOMATED METHOD 09/01/2025 10:46 AM [facility] Blood, Urine Small(A) Negative LAB URINALYSIS - AUTOMATED METHOD 09/01/2025 10:46 AM [facility] RBC, Urine 1.0 0 - 4 /HPF LAB URINALYSIS - AUTOMATED METHOD 09/01/2025 10:46 AM EDT [facility] WBC, Urine 7.0(H) 0 - 4 /HPF LAB URINALYSIS - AUTOMATED METHOD 09/01/2025 10:46 AM EDT [facility] Squamous Epithelial, Urine 10 0 - 60 /LPF LAB URINALYSIS - AUTOMATED METHOD 09/01/2025 10:46 AM EDT [facility] Bacteria, Urine Negative Negative /HPF LAB URINALYSIS - AUTOMATED METHOD 09/01/2025 10:46 AM EDT [facility] Hyaline Casts, Urine 0.4 0 - 3 /LPF LAB URINALYSIS - AUTOMATED METHOD 09/01/2025 10:46 AM EDT [facility] Urine Urine specimen obtained by clean catch procedure / Unknown Non-blood Collection / Unknown 08/31/2025 4:00 PM EDT 09/01/2025 10:18 AM EDT us Janice Núñez MD LAB URINE ORDERABLES Final Resul t Performing Organization Address City/[facility]/ZIP Co de Phone Number [facility] [address] [place] [address], [place] [phone] * Culture urine (08/31/2025 4:00 PM EDT) Culture, Urine <10,000 CFU/mL gram positive cocci, insignificant count, no further workup 09/02/2025 11:17 AM EDT [facility] Urine Urine specimen obtained by clean catch procedure / Unknown Non-blood Collection / Unknown 08/31/2025 4:00 PM EDT 09/01/2025 10:18 AM EDT us Janice Núñez MD LAB MICROBIOLOGY - GENERAL ORDER KANE Final Result [facility] [address] [place] [address], documented in this encounter Visit Diagnoses Diagnosis [...] documented as of this encounter Care Teams Office Equipment Technician Relationship Specialty Start Date End Date Kinjal Barron FNP [address] [place] [phone] PCP - General Family Medicine 03/06/25 documented as of this encounter
--- OUTSIDE RECORDS SUMMARY | 2025-11-10 01:52 | XMS_ITS | Encounter Summary ---
Author Organization [facility] Address [address] [place] [address] Care Team Providers Care Restaurant Crew Name Role Phone Kinjal Barron WEATHERSTRIP MACHINE OPERATOR Primary Care Provid er Encounter Details Date Type Department Care Team (Late st Contact Info) Description 08/27/2025 Lab Requisition [facility] - Main Lab [address] [facility] [place] [address] Janice Núñez MD [address] [place], [place] [phone] Malignant neoplasm of unspecified part of left [...] 02/18/2026 10:30 AM EDT Office Visit [facility] Hematology Oncology [address] [place] [phone] Lashanda Mcigll, [address] [place] [address] documented as of this encounter Procedures Procedure [...] LAB CHEMISTRY METHOD 08/28/2025 1:05 PM EDT [facility] Calcium 8.5 8.5 - 10.5 mg/dL LAB CHEMISTRY METHOD 08/28/2025 1:05 PM EDT [facility] Blood Venous blood specimen / Unknown Venipuncture / Unknown 08/28/2025 9:04 AM EDT 08/28/2025 11:54 AM EDT us Janice Núñez MD LAB BLOOD ORDERABLES Final Resul t [facility] [address] [place] [address], [place] [phone] * (ABNORMAL) Complete blood count (08/28/2025 9:04 AM EDT) WBC 3.8(L) 4.8 - 10.8 K/mcL LAB HEMETOLOGY METHOD 08/28/2025 1:14 PM EDT [facility] RBC 4.20 3.80 - 4.80 M/mcL LAB HEMETOLOGY METHOD 08/28/2025 1:14 PM [facility] Hemoglobin 12.0 11.5 - 16.0 g/dL LAB HEMETOLOGY METHOD 08/28/2025 1:14 PM T [facility] Hematocrit 40.8 35.0 - 47.0 % LAB HEMETOLOGY METHOD 08/28/2025 1:14 PM [facility] MCV 96.2 79.0 - 98.0 FL LAB HEMETOLOGY METHOD 08/28/2025 1:14 PM [facility] MCH 28.3 27.0 - 32.0 pcg LAB HEMETOLOGY METHOD 08/28/2025 1:14 PM EDT [facility] MCHC 29.4(L) 32.0 - 37.0 g/dL LAB HEMETOLOGY METHOD 08/28/2025 1:14 PM EDT [facility] RDW 15.8(H) 11.0 - 15.0 % LAB HEMETOLOGY METHOD 08/28/2025 1:14 PM EDT [facility] Platelets 354 130 - 400 K/mcL LAB HEMETOLOGY METHOD 08/28/2025 1:14 PM EDT [facility] MPV 9.2 7.0 - 11.0 FL LAB HEMETOLOGY METHOD 08/28/2025 1:14 PM EDT [facility] NRBC 0.0 <1.0 % LAB HEMETOLOGY METHOD 08/28/2025 1:14 PM EDT [facility] NRBC Absolute 0.00 <0.10 K/mcL LAB HEMETOLOGY METHOD 08/28/2025 1:14 PM EDT [facility] Blood Venous blood specimen / Unknown Venipuncture / Unknown 08/28/2025 9:04 AM EDT 08/28/2025 11:55 AM EDT us Janice Núñez MD LAB BLOOD ORDERABLES Final Resul t [facility] [address] [place] [address], documented in this encounter Visit Diagnoses Diagnosis [...] documented as of this encounter Care Teams Restaurant Crew Relationship Specialty Start Date End Date Kinjal Barron FNP [address] [place] [address] PCP - General Family Medicine 03/06/25 documented as of this encounter
--- OUTSIDE RECORDS SUMMARY | 2025-11-10 01:52 | XMS_ITS | Encounter Summary ---
Author Organization [facility] Address [address] [place] [address] Care Team Providers Care Tire Service Supervisor Name Role Phone Kinjal Barron POULTRY RAISER Primary Care Provid er Encounter Details Date Type Department Care Team (Late st Contact Info) Description 09/17/2025 Lab Requisition [facility] - Main Lab [address] [facility] [place] [address] Janice Núñez MD [address] [place], [place] [phone] Malignant neoplasm of unspecified part of left [...] Description 02/18/2026 10:30 AM EDT Office Visit Hematology Oncology [address] [place] [phone] Lashanda Mcgill, [address] [place] [address] documented as of this encounter Procedures Procedure [...] mmol/L LAB CHEMISTRY METHOD 09/18/2025 12:[address] [facility] Potassium 4.1 3.5 - 5.5 mmol/L LAB CHEMISTRY METHOD 09/18/2025 12:[address] [facility] Chloride 93(L) 96 - 110 mmol/L LAB CHEMISTRY METHOD 09/18/2025 12:[address] [facility] CO2 39(H) 21 - 32 mmol/L LAB CHEMISTRY METHOD 09/18/2025 12:[address] [facility] Anion Gap 7 3 - 11 LAB CHEMISTRY METHOD 09/18/2025 12:[address] [facility] Glucose 64(L) 70 - 100 mg/dL LAB CHEMISTRY METHOD 09/18/2025 12:[address] [facility] BUN 15 5 - 25 mg/dL LAB CHEMISTRY METHOD 09/18/2025 12:[address] [facility] Creatinine 0.86 0.50 - 1.10 mg/dL LAB CHEMISTRY METHOD 09/18/2025 12:[address] [facility] eGFR 72 >=60 mL/min/1. 73m2 LAB CHEMISTRY METHOD 09/18/2025 12:[address] [facility] Comment:Calculation based on the Chronic Kidney Disease Epidemiology Collaboration (CKD-EPI) equation refit without adjustment for race. BUN/Creatinine Ratio 17.4 LAB CHEMISTRY METHOD 09/18/2025 12:44 PM EDT [facility] Calcium 9.9 8.5 - 10.5 mg/dL LAB CHEMISTRY METHOD 09/18/2025 12:44 PM T [facility] Blood Venous blood specimen / Unknown Venipuncture / Unknown 09/18/2025 5:01 AM EDT 09/18/2025 10:13 AM EDT us Janice Núñez MD LAB BLOOD ORDERABLES Final Resul t [facility] [address] [place] [address], [place] [phone] * (ABNORMAL) Complete blood count (09/18/2025 5:01 AM EDT) WBC 7.6 4.8 - 10.8 K/mcL LAB HEMETOLOGY METHOD 09/18/2025 11:[address] [facility] RBC 3.60(L) 3.80 - 4.80 M/mcL LAB HEMETOLOGY METHOD 09/18/2025 11:[address] [facility] Hemoglobin 10.3(L) 11.5 - 16.0 g/dL LAB HEMETOLOGY METHOD 09/18/2025 11:[address] [facility] Hematocrit 35.4 35.0 - 47.0 % LAB HEMETOLOGY METHOD 09/18/2025 11:[address] [facility] MCV 97.3 79.0 - 98.0 FL LAB HEMETOLOGY METHOD 09/18/2025 11:[address] [facility] MCH 28.3 27.0 - 32.0 pcg LAB HEMETOLOGY METHOD 09/18/2025 11:[address] [facility] MCHC 29.1(L) 32.0 - 37.0 g/dL LAB HEMETOLOGY METHOD 09/18/2025 11:08 AM EDT [facility] RDW 16.0(H) 11.0 - 15.0 % LAB HEMETOLOGY METHOD 09/18/2025 11:08 AM EDT [facility] Platelets 400 130 - 400 K/mcL LAB HEMETOLOGY METHOD 09/18/2025 11:08 AM EDT [facility] MPV 9.6 7.0 - 11.0 FL LAB HEMETOLOGY METHOD 09/18/2025 11:08 AM EDT [facility] NRBC 0.0 <1.0 % [facility] 09/18/2025 11:08 AM EDT [facility] NRBC Absolute 0.00 <0.10 K/mcL LAB HEMETOLOGY METHOD 09/18/2025 11:08 AM EDT [facility] Blood Venous blood specimen / Unknown Venipuncture / Unknown 09/18/2025 5:01 AM EDT 09/18/2025 10:13 AM EDT Janice Núñez MD LAB BLOOD ORDERABLES Final Resul t [facility] [address] [place] [address], documented in this encounter Visit Diagnoses Diagnosis Malignant neoplasm of unspecified part of left bronchus or lung (CMS/HCC V24, CMS/HCC V28) Chronic respiratory failure with hypercapnia (CMS/HCC V24, CMS/HCC V28) documented in this encounter Additional Health Concerns Assessment Noted Time PHQ-9 Depression Total Score: 1 07/19/20 25 5:04 PM EDT documented as of this encounter Care Teams Tire Service Supervisor Relationship Specialty Start Date End Date Kinjal Barron FNP [address] [place] [phone] PCP - General Family Medicine 03/06/25 documented as of this encounter
--- OUTSIDE RECORDS SUMMARY | 2025-11-10 01:52 | XMS_ITS | Encounter Summary ---
Author Organization [facility] Address [address] [place] [address] Care Team Providers Care Fiberglass Boat Builder Name Role Phone Kinjal Barron NAV[employer] DIVER Primary Care Provid er Encounter Details Date Type Department Care Team (Late st Contact Info) Description 08/30/2025 Lab Requisition [facility] - Main Lab [address] [facility] [address] [place] [address] Janice Núñez MD [address] [place] [address] Hyperkalemia Social History Tobacco Use Types Packs/Day [...] Assessment Author Yes 07/06/2025 1:10 AM EDT Chreyle Velazquez RN documented as of this encounter [...] Description 02/18/2026 10:30 AM EDT Office Visit [facility] Hematology Oncology [address] [place] [phone] Lashanda Mcgill, DO [address] [place] [address] documented as of this encounter Procedures Procedure Name Priority Date/Time Associated Diagnosis Comments BASIC METABOLIC PANEL Routine 08/30/2025 6:02 AM EDT Hyperkalemia documented in this encounter Results * (ABNORMAL) Basic metabolic panel (08/30/2025 6:02 AM EDT) Sodium 140 133 - 145 mmol/L LAB CHEMISTRY METHOD 08/30/2025 2:28 PM [facility] Potassium 3.5 3.5 - 5.5 mmol/L LAB CHEMISTRY METHOD 08/30/2025 2:28 PM [facility] Chloride 99 96 - 110 mmol/L LAB CHEMISTRY METHOD 08/30/2025 2:28 PM [facility] CO2 35(H) 21 - 32 mmol/L LAB CHEMISTRY METHOD 08/30/2025 2:28 PM [facility] Anion Gap 6 3 - 11 LAB CHEMISTRY METHOD 08/30/2025 2:28 PM [facility] Glucose 86 70 - 100 mg/dL LAB CHEMISTRY METHOD 08/30/2025 2:28 PM [facility] BUN 13 5 - 25 mg/dL LAB CHEMISTRY METHOD 08/30/2025 2:28 PM [facility] Creatinine 0.85 0.50 - 1.10 mg/dL LAB CHEMISTRY METHOD 08/30/2025 2:28 PM [facility] eGFR 73 >=60 mL/min/1. 73m2 LAB CHEMISTRY METHOD 08/30/2025 2:28 PM [facility] Comment:Calculation based on the Chronic Kidney Disease Epidemiology Collaboration (CKD-EPI) equation refit without adjustment for race. BUN/Creatinine Ratio 15.3 LAB CHEMISTRY METHOD 08/30/2025 2:28 PM [facility] Calcium 8.7 8.5 - 10.5 mg/dL LAB CHEMISTRY METHOD 08/30/2025 2:28 PM [facility] Blood Venous blood specimen / Unknown Venipuncture / Unknown 08/30/2025 6:02 AM EDT 08/30/2025 9:37 AM EDT Janice Núñez MD LAB BLOOD ORDERABLES Final Resul t [facility] [address] [place] [address], documented in this encounter Visit Diagnoses Diagnosis Hyperkalemia Hyperpotassemia documented in this encounter Additional Health Concerns Infection Onset Date Last Indicated Resolved Time Respiratory Rule-Out 09/05/2025 09/05/2025 025 3:59 PM EDT COVID-19 Rule-Out 09/05/2025 09/05/2025 09/05/2025 3:59 PM EDT Assessment Noted Time PHQ-9 Depression Total Score: 1 07/19/20 25 5:04 PM EDT documented as of this encounter Care Teams Fiberglass Boat Builder Relationship Specialty Start Date End Date Kinjal Barron FNP [address] [place] [address] PCP - General Family Medicine 03/06/25 documented as of this encounter
--- OUTSIDE RECORDS SUMMARY | 2025-11-10 01:52 | XMS_ITS | Encounter Summary ---
Author Organization [facility] Address [address] [place] [address] Care Team Providers Care Pediatric Pathologist Name Role Phone Kinjal Barron MANAGER FINANCIAL Primary Care Provid er Encounter Details Date Type Department Care Team (Late st Contact Info) Description 08/20/2025 Lab Requisition [facility] - Main Lab [address] [facility] [place] [address] Janice Núñez MD [address] [place], [place] [phone] Malignant neoplasm of unspecified part of left bronchus or lung (CMS/HCC V24, CMS/HCC V28); Respiratory failure, unspecified, unspecified whether with hypoxia or hypercapnia (CMS/HCC V24, CMS/HCC V28); Other fpc (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 therapy Social History Tobacco Use [...] Description 02/18/2026 10:30 AM EDT Office Visit [facility] Hematology Oncology [address] [place] [phone] Lashanda Mcgill, [address] [place] [address] documented as of this encounter Procedures Procedure Name Priority Date/Time Associated Diagnosis Comments VITAMIN D 25 HYDROXY Routine 08/20/2025 4:50 AM EDT Malignant neoplasm of unspecified part of left bronchus or lung (CMS/HCC V24, CMS/HCC V28) Respiratory failure, unspecified, unspecified whether with hypoxia or hypercapnia (CMS/HCC V24, CMS/HCC V28) Other utilization manager (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 therapy COMPLETE BLOOD COUNT Routine 08/20/2025 4:50 AM EDT Malignant neoplasm of unspecified part of left bronchus or lung (CMS/HCC V24, CMS/HCC V28) Respiratory failure, unspecified, unspecified whether with hypoxia or hypercapnia (CMS/HCC V24, CMS/HCC V28) Other utilization manager (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 therapy THYROID STIMULATING HORMONE Routine 08/20/2025 4:50 AM EDT Malignant neoplasm of unspecified part of left bronchus or lung (CMS/HCC V24, CMS/HCC V28) Respiratory failure, unspecified, unspecified whether with hypoxia or hypercapnia (CMS/HCC V24, CMS/HCC V28) Other fpc (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 therapy HEMOGLOBIN A1C Routine 08/20/2025 4:50 AM EDT Malignant neoplasm of unspecified part of left bronchus or lung (CMS/HCC V24, CMS/HCC V28) Respiratory failure, unspecified, unspecified whether with hypoxia or hypercapnia (CMS/HCC V24, CMS/HCC V28) Other utilization manager (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 therapy FOLATE Routine 08/20/2025 4:50 AM EDT Malignant neoplasm of unspecified part of left bronchus or lung (CMS/HCC V24, CMS/HCC V28) Respiratory failure, unspecified, unspecified whether with hypoxia or hypercapnia (CMS/HCC V24, CMS/HCC V28) Other utilization manager (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 therapy VITAMIN B12 Routine 08/20/2025 4:50 AM EDT Malignant neoplasm of unspecified part of left bronchus or lung (CMS/HCC V24, CMS/HCC V28) Respiratory failure, unspecified, unspecified whether with hypoxia or hypercapnia (CMS/HCC V24, CMS/HCC V28) Other fpc (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 therapy COMPREHENSIVE METABOLIC PANEL Routine 08/20/2025 4:50 AM EDT Malignant neoplasm of unspecified part of left bronchus or lung (CMS/HCC V24, CMS/HCC V28) Respiratory failure, unspecified, unspecified whether with hypoxia or hypercapnia (CMS/HCC V24, CMS/HCC V28) Other fpc (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 therapy documented in this encounter Results * Vitamin D 25 hydroxy (08/20/2025 4:50 AM EDT) Vit D, 25-Hydroxy 37.7 30.0 - 80.0 ng/mL LAB CHEMISTRY METHOD 08/20/2025 12:17 PM EDT [facility] Blood Venous blood specimen / Unknown Venipuncture / Unknown 08/20/2025 4:50 AM EDT 08/20/2025 9:32 AM EDT us Janice Núñez MD LAB BLOOD ORDERABLES Final Resul t Performing Organization Address City/[facility]/ZIP Co de Phone Number [facility] [address] [place] [address], [place] [phone] * Vitamin B12 (08/20/2025 4:50 AM EDT) Pathologist [facility] Vitamin B-12 592 250 - 900 pcg/mL LAB CHEMISTRY METHOD 08/20/2025 11:03 AM EDT [facility] Blood Venous blood specimen / Unknown Venipuncture / Unknown 08/20/2025 4:50 AM EDT 08/20/2025 9:32 AM EDT us Janice Núñez MD LAB BLOOD ORDERABLES Final Resul t Performing Organization Address City/[facility]/ZIP Co de Phone Number [facility] [address] [place] [address], [place] [phone] * Hemoglobin A1c (08/20/2025 4:50 AM EDT) [facility] Hemoglobin A1C 5.8 <6.5 % LAB CHEMISTRY METHOD 08/20/2025 12:16 PM EDT [facility] Mean Bld Glu Estim. 120 mg/dL LAB CHEMISTRY METHOD 08/20/2025 12:16 PM EDT [facility] Blood Venous blood specimen / Unknown Venipuncture / Unknown 08/20/2025 4:50 AM EDT 08/20/2025 9:32 AM EDT us Janice Núñez MD LAB BLOOD ORDERABLES Final Resul t [facility] [address] [place] [address], [place] [phone] * Thyroid stimulating hormone (08/20/2025 4:50 AM EDT) [facility] TSH 2.01 0.40 - 4.00 mcIU/mL LAB CHEMISTRY METHOD 08/20/2025 12:18 PM EDT [facility] Blood Venous blood specimen / Unknown Venipuncture / Unknown 08/20/2025 4:50 AM EDT 08/20/2025 9:32 AM EDT us Janice Núñez MD LAB BLOOD ORDERABLES Final Resul t [facility] [address] [place] [address], [place] [phone] * (ABNORMAL) Folate (08/20/2025 4:50 AM EDT) [facility] Folate 19.1(H) 2.8 - 17.0 ng/ml LAB CHEMISTRY METHOD 08/20/2025 11:03 AM EDT [facility] Blood Venous blood specimen / Unknown Venipuncture / Unknown 08/20/2025 4:50 AM EDT 08/20/2025 9:32 AM EDT us Janice Núñez MD LAB BLOOD ORDERABLES Final Resul t [facility] [address] [place] [address], [place] [phone] * (ABNORMAL) Comprehensive metabolic panel (08/20/2025 4:50 AM EDT) Sodium 140 133 - 145 mmol/L LAB CHEMISTRY METHOD 08/20/2025 11:04 AM [facility] Potassium 3.3(L) 3.5 - 5.5 mmol/L LAB CHEMISTRY METHOD 08/20/2025 11:04 AM [facility] Chloride 102 96 - 110 mmol/L LAB CHEMISTRY METHOD 08/20/2025 11:04 AM [facility] CO2 31 21 - 32 mmol/L LAB CHEMISTRY METHOD 08/20/2025 11:04 AM [facility] Anion Gap 7 3 - 11 LAB CHEMISTRY METHOD 08/20/2025 11:04 AM [facility] Glucose 81 70 - 100 mg/dL LAB CHEMISTRY METHOD 08/20/2025 11:04 AM [facility] BUN 19 5 - 25 mg/dL LAB CHEMISTRY METHOD 08/20/2025 11:04 AM [facility] Creatinine 0.78 0.50 - 1.10 mg/dL LAB CHEMISTRY METHOD 08/20/2025 11:04 AM [facility] eGFR 81 >=60 mL/min/1. 73m2 LAB CHEMISTRY METHOD 08/20/2025 11:04 AM [facility] Comment:Calculation based on the Chronic Kidney Disease Epidemiology Collaboration (CKD-EPI) equation refit without adjustment for race. BUN/Creatinine Ratio 24.4 LAB CHEMISTRY METHOD 08/20/2025 11:04 AM [facility] Calcium 8.4(L) 8.5 - 10.5 mg/dL LAB CHEMISTRY METHOD 08/20/2025 11:04 AM EDT [facility] AST (SGOT) 18 10 - 42 unit/L LAB CHEMISTRY METHOD 08/20/2025 11:04 AM [facility] ALT (SGPT) 29 10 - 60 unit/L LAB CHEMISTRY METHOD 08/20/2025 11:04 AM EDT [facility] Alkaline Phosphatase 78 42 - 121 unit/L LAB CHEMISTRY METHOD 08/20/2025 11:04 AM T [facility] Total Protein 5.9(L) 6.0 - 8.0 g/dL LAB CHEMISTRY METHOD 08/20/2025 11:04 AM [facility] Albumin 3.2 3.2 - 5.0 g/dL LAB CHEMISTRY METHOD 08/20/2025 11:04 AM [facility] Total Bilirubin 0.1 0.0 - 1.4 mg/dL LAB CHEMISTRY METHOD 08/20/2025 11:04 AM [facility] Blood Venous blood specimen / Unknown Venipuncture / Unknown 08/20/2025 4:50 AM EDT 08/20/2025 9:32 AM EDT us Janice Núñez MD LAB BLOOD ORDERABLES Final Resul t [facility] [address] [place] [address], [place] [phone] * (ABNORMAL) Complete blood count (08/20/2025 4:50 AM EDT) WBC 7.6 4.8 - 10.8 K/mcL LAB HEMETOLOGY METHOD 08/20/2025 9:58 AM EDT [facility] RBC 3.80 3.80 - 4.80 M/mcL LAB HEMETOLOGY METHOD 08/20/2025 9:58 AM [facility] Hemoglobin 10.5(L) 11.5 - 16.0 g/dL LAB HEMETOLOGY METHOD 08/20/2025 9:58 AM [facility] Hematocrit 34.8(L) 35.0 - 47.0 % LAB HEMETOLOGY METHOD 08/20/2025 9:58 AM [facility] MCV 92.1 79.0 - 98.0 FL LAB HEMETOLOGY METHOD 08/20/2025 9:58 AM [facility] MCH 27.8 27.0 - 32.0 pcg LAB HEMETOLOGY METHOD 08/20/2025 9:58 AM [facility] MCHC 30.2(L) 32.0 - 37.0 g/dL LAB HEMETOLOGY METHOD 08/20/2025 9:58 AM [facility] RDW 16.4(H) 11.0 - 15.0 % LAB HEMETOLOGY METHOD 08/20/2025 9:58 AM [facility] Platelets 306 130 - 400 K/mcL LAB HEMETOLOGY METHOD 08/20/2025 9:58 AM [facility] MPV 9.1 7.0 - 11.0 FL LAB HEMETOLOGY METHOD 08/20/2025 9:58 AM [facility] NRBC 0.0 <1.0 % LAB HEMETOLOGY METHOD 08/20/2025 9:58 AM [facility] NRBC Absolute 0.00 <0.10 K/mcL LAB HEMETOLOGY METHOD 08/20/2025 9:58 AM [facility] Blood Venous blood specimen / Unknown Venipuncture / Unknown 08/20/2025 4:50 AM EDT 08/20/2025 9:32 AM EDT us Fahim A Wilton MD LAB BLOOD ORDERABLES Final Resul t [facility] [address] [place] [address], documented in this encounter Visit Diagnoses Diagnosis Malignant neoplasm of unspecified part of left bronchus or lung ([facility] V24, [facility] V28) Respiratory failure, unspecified, unspecified whether with hypoxia or hypercapnia ([facility] V24, [facility] V28) Other utilization manager (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 therapy documented in this encounter Additional Health Concerns Infection Onset Date Last Indicated Resolved Time Respiratory Rule-Out 09/05/2025 09/05/2025 025 3:59 PM EDT COVID-19 Rule-Out 09/05/2025 09/05/2025 09/05/2025 3:59 PM EDT Assessment Noted Time PHQ-9 Depression Total Score: 1 07/19/20 25 5:04 PM EDT documented as of this encounter Care Teams Pediatric Pathologist Relationship Specialty Start Date End Date Kinjal Barron FNP [address] [place] [phone] PCP - General Family Medicine 03/06/25 documented as of this encounter
--- NOTE | 2025-11-10 02:06 | PC.NURSE ---
RN has tried calling RT for vbg- unsuccessful- will try again.
[2025-11-10 02:16] LABS: MANUAL DIFF FLAG NO
[2025-11-10 02:17] LABS: Hematocrit 27.5 % (37.0-47.0); Hemoglobin 7.8 g/dl (12.0-16.0); Imm Gran Abs Auto 0.11 X10*3/uL (0.00-0.03); Imm Gran Pct Auto 1.5 % (0.0-0.4); Lymphocytes Absolute Auto 0.5 X10*3/uL (1.2-4.9); Mean Corpuscular HGB Conc 28.4 g/dl (31.0-35.0); Mean Corpuscular Hemoglobin 25.8 pg (27.0-33.0); Mean Corpuscular Volume 91.1 fL (80.0-98.0); NRBC Abs Auto 0.000 X10*3/uL (0.0-0.012); NRBC Pct Auto 0.0 /100WBC (0.0-0.2); Platelet Count 427 X10*3/uL (160-400); Red Blood Count 3.02 X10*6/uL (4.20-5.50); White Blood Count 7.5 X10*3/uL (4.8-10.8)
[2025-11-10 02:20] VITALS: TEMP 37.6
[2025-11-10 02:20] LABS: Venous Blood Gas Refer to POC result
[2025-11-10 02:21] LABS: VBG HCO3 58 mmol/L (22-26)
[2025-11-10 02:34] LABS: Alanine Aminotransferase 8 U/L (0-31); Albumin Level 4.0 g/dL (3.5-5.0); Alkaline Phosphatase 64 U/L (39-117); Anion Gap 15 (12-20); Aspartate Amino Transferase 19 U/L (5-31); Blood Urea Nitrogen 18 mg/dL (9-16); Calcium 9.8 mg/dL (8.4-10.2); Carbon Dioxide 41 mmol/L (22-29); Chloride 90 mmol/L (96-108); Creatinine Clr Calc Pharmacy 67.2; Estimated Glomerular Filt Rate > 60; Potassium 3.5 mmol/L (3.3-5.1); Sodium 142 mmol/L (135-145); Total Protein 6.5 g/dL (6.5-8.0)
[2025-11-10 02:37] LABS: Troponin-I High Sensitivity 11.6 ng/L (<3.5-17.0)
[2025-11-10 02:45] LABS: NT Pro B Type Natriuretic Pept 568.4 pg/mL (<300)
[2025-11-10 02:54] LABS: Resp Syncy Virus RNA Qual PCR NEGATIVE (Negative); SARS COV2 PCR INHOUSE NEGATIVE (Negative)
[2025-11-10 04:44] VITALS: BP 106/56; PULSE 91; RESP 24; TEMP 36.6; O2SAT 95
[2025-11-10 06:38] LABS: Troponin-I High Sensitivity 11.5 ng/L (<3.5-17.0)
--- NOTE | 2025-11-10 07:03 | ED.SOB ---
HPI - SOB/Dyspnea General Chief Complaint: Dyspnea Stated Complaint: SOB Time Seen by Provider: 11/10/25 01:02 Source: patient and EMS Mode of arrival: ambulatory Limitations: no limitations History of Present Illness ED Provider: Dr. Sheila Patterson HPI Narrative: 70-year-old female with a history of COPD, CHF, lung Ca presents to the Emergency Department reporting that she ?felt really scared? earlier this evening when she became short of breath while wearing her Trilogy mask. The episode began prior to supplemental oxygen being applied and improved after oxygen was started. She has had similar episodes in the past and was admitted last month for the same problem without interval improvement. She denies fever, cough, or chest pain. Dyspnea is mainly nocturnal. She denies abdominal pain, nausea, vomiting, bowel or urinary changes. She notes mild lower-extremity swelling, which she states is baseline. She denies calf pain. She is compliant with her prescribed diuretic. Past history is notable for COPD and lung cancer (treated with chemotherapy and radiation, currently in remission). She is on a blood thinner for cancer-associated risk of thrombosis and has no prior history of clot, NH, or stroke. She is a former smoker, having quit ?many moons ago.? Related Data Home Medications ?Medication ?Instructions ?Recorded ?Confirmed alendronate 70 mg tablet (Fosamax) 70 mg PO DOMINGUEZ 02/09/21 10/23/25 mirtazapine 15 mg tablet 7.5 mg PO BEDTIME 09/10/21 10/23/25 sennosides 8.6 mg tablet (Senokot) 8.6 mg PO BEDTIME 09/10/21 10/23/25 Oxygen Home Use 04/15/23 10/22/24 nebulizers 04/15/23 10/22/24 pantoprazole 40 mg tablet,delayed 40 mg PO DAILY@0630 06/21/24 10/23/25 release docusate sodium 100 mg capsule 100 mg PO DAILY PRN Constipation 07/27/24 10/23/25 aripiprazole 10 mg tablet 10 mg PO DAILY 08/20/24 10/23/25 mineral oil 1 appl topical Q48H PRN eczema 08/20/24 10/23/25 omega 8-fkh-jov-fish oil 1,000 mg 1 cap PO BID 08/20/24 10/23/25 (120 mg-180 mg) capsule (Fish Oil) apixaban 5 mg tablet (Eliquis) 5 mg PO BID 09/26/24 10/23/25 gabapentin 100 mg capsule 100 mg PO BID 01/18/25 10/23/25 ferrous gluconate 324 mg (38 mg 324 mg PO DAILY 07/25/25 10/23/25 iron) tablet calcium carbonate (Oyster Shell 500 mg PO BID 08/06/25 10/23/25 Calcium) cholecalciferol (vitamin D3) 25 25 mcg PO DAILY 08/06/25 10/23/25 mcg (1,000 unit) tablet (Vitamin D3) fluticasone furoate 200 1 ea inhalation DAILY dyspnea 08/06/25 10/23/25 mcg-vilanterol 25 mcg/dose inhalation powder (Breo Ellipta) furosemide 40 mg tablet 40 mg PO DAILY 08/06/25 10/23/25 lactulose 10 gram/15 mL oral 15 ml PO DAILY PRN constipation 08/06/25 10/23/25 solution (Enulose) lamotrigine 200 mg tablet 200 mg PO BID 08/06/25 10/23/25 vilazodone 40 mg tablet 40 mg PO DAILY 08/06/25 10/23/25 L.acidophilus-bif.longum 15 mg (1 1 cap PO DAILY 10/23/25 10/23/25 billion cell)capsule,delayed release (Probiotic Pearls) acetaminophen 325 mg tablet 650 mg PO Q4H PRN Fever/Pain 10/23/25 10/23/25 acetazolamide 250 mg tablet 250 mg PO MOWEFR 10/23/25 10/23/25 aspirin 81 mg tablet 81 mg PO DAILY 10/23/25 10/23/25 atorvastatin 40 mg tablet 40 mg PO DAILY 10/23/25 10/23/25 bisacodyl 10 mg rectal suppository 10 mg IL DAILY PRN Constipation 10/23/25 10/23/25 guaifenesin 600 mg tablet, 1,200 mg PO BID PRN Congestion 10/23/25 10/23/25 extended release 12 hr guaifenesin 600 mg tablet, 600 mg PO BID 10/23/25 10/23/25 extended release 12 hr loratadine 10 mg tablet (Claritin) 10 mg PO DAILY 10/23/25 10/23/25 magnesium hydroxide 400 mg/5 mL 30 ml PO DAILY PRN Constipation 10/23/25 10/23/25 oral suspension (Milk of Magnesia) metoprolol succinate 100 mg 100 mg PO DAILY 10/23/25 10/23/25 tablet,extended release 24 hr prednisone 10 mg tablet 10 mg PO DAILY 10/23/25 10/23/25 Held on 10/25/25. Instructions: Resume on 11/08/25. Resume after prolonged prednisone taper sodium phosphates 19 gram-7 118 ml IL DAILY PRN Constipation 10/23/25 10/23/25 gram/197 mL enema (Fleet Enema Extra) tramadol 50 mg tablet 50 mg PO Q6H PRN Pain 10/23/25 10/23/25 trazodone 50 mg tablet 12.5 mg PO BEDTIME Sleep 10/23/25 10/23/25 Previous Rx's ?Medication ?Instructions ?Recorded fluticasone propionate 50 1 spray intranasal DAILY Allergies 02/02/25 mcg/actuation nasal 30 days #16 grams spray,suspension montelukast 10 mg tablet 10 mg PO BEDTIME 90 days #90 tabs 02/02/25 ipratropium bromide 0.02 % 2.5 ml inhalation QID #300 mL 04/10/25 solution for inhalation albuterol sulfate 2.5 mg/3 mL 2.5 mg (3 mL) inhalation QID #360 06/19/25 (0.083 %) solution for nebulization mL albuterol sulfate 90 mcg/actuation 2 puff inhalation Q6H PRN 06/19/25 aerosol inhaler Respiratory Distress #8.5 grams theophylline 300 mg 300 mg PO Q12H #60 tabs 07/04/25 tablet,extended release,12 hr doxycycline hyclate 100 mg capsule 100 mg PO BID 5 days #10 caps 10/25/25 prednisone 20 mg tablet See Taper PO BID 7 days #28 tabs 10/25/25 doxycycline monohydrate 100 mg 100 mg PO BID 7 days #14 caps 11/10/25 capsule prednisone 50 mg tablet 50 mg PO DAILY 5 days #5 tabs 11/10/25 Allergies Allergy/AdvReac Type Severity Reaction Status Date / Time fluoxetine Allergy Severe Irritable Verified 11/10/25 01:16 codeine (Codeine) Allergy Intermediate RESTLESS/RA Verified 11/10/25 01:16 SH haloperidol (Haldol) Allergy Intermediate Palpitation Verified 11/10/25 01:16 s Review of Systems Review of Systems: as per HPI, full review of systems performed and negative but for the above mentioned pertinent positives and negatives. [facility] Past Medical History Medical History Lung cancer Pulmonary nodule 1 cm or greater in diameter Lung mass RITA (obstructive sleep apnea) Cor pulmonale Rib fractures Pulmonary nodule Tubular adenoma of colon (~2006) Osteopenia (~2012) Bronchopneumonia Chest pain Chronic respiratory alkalosis ILD (interstitial lung disease) CO2 retention Acute on chronic respiratory failure with hypoxia and hypercapnia Bipolar depression Eczema Limb swelling Insomnia Bronchitis Vasomotor rhinitis COPD (chronic obstructive pulmonary disease) Chronic respiratory failure Fall Acute metabolic encephalopathy Acute and chronic respiratory failure with hypercapnia Surgical History History of carpal tunnel surgery (~2000) History of ventral hernia repair (~2003) History of left inguinal hernia repair (~1995) History of tracheostomy (~2016) History of cataract surgery (~2018) History of colonoscopy Family History Family History Other Hypertension Social History Social History Household Members: Other Household Members Other:: Daughter, son-in-law, grandchildren Housing: [facility] Other:: [facility] Are you a primary clinical care coordinator to a significant other at home: No Do you presently have visiting nurse or other home services: No Alcohol intake: former Patient Tobacco Use Status: Former Tobacco user Tobacco use type: Cigarette Years Smoked: 20+ years Smoked in Last 30 Days: No e-Cigarette/Vaping Use: Never Used Second Hand Smoke Exposure: No Use of substances other than those prescribed or required for medical reasons: No Advance Directives: Yes Advance Directives on File: Yes Advance Directives Date on File: 11/30/21 Do you have a plan to hurt others: No Plan service: No Current occupational status: disabled Physical Exam Exam: Exam: GENERAL: Chronically ill-appearing, mild respiratory distress. SKIN: Normal skin color for ethnicity, warm, dry, no rashes noted. HEENT: Normocephalic, atraumatic, no stridor, EOMI. NECK: Soft, supple, full ROM, midline structures nontender, no step-offs, no deformities, no lymphadenopathy. CHEST: Heart regular tachycardia, symmetric chest rise and fall. PULMONARY: Coarse lung sounds bilaterally, diminished at the bases, ,mild respiratory distress with poor air movement, no wheezes. ABDOMINAL: Soft, protuberant nontender, quiet bowel sounds in all quadrants. : Deferred. MUSCULOSKELETAL: Normal tone, full range of motion, no deformities, 2+ peripheral edema bilaterally. NEURO: Alert and oriented to person, CN II through XII intact, no focal neurologic deficits. PSYCHIATRIC: Anxious affect, appropriate demeanor. Vital Signs: Vital Signs: Last Vital Signs Temp 98 F 11/10/25 04:44 Pulse 91 11/10/25 04:44 Resp 24 H 11/10/25 04:44 BP 106/56 L 11/10/25 04:44 Pulse Ox 95 11/10/25 04:44 O2 Del Method Nasal Cannula 11/10/25 04:44 O2 Flow Rate 7 11/10/25 04:44 Oxygen Flow Rate 6 11/10/25 01:12 BMI result Body Mass Index 36.8 Medications Administered Discontinued Medications Generic Name Dose Route Start Last Admin Trade Name Freq PRN Reason Stop Dose Admin Doxycycline Monohydrate 100 mg 11/10/25 02:45 11/10/25 03:26 Doxycycline Monohydrate 100 Mg Capsule PO 11/10/25 02:46 100 mg ONCE ONE Administration Prednisone 50 mg 11/10/25 02:56 11/10/25 03:26 Prednisone 10 Mg Tablet PO 11/10/25 02:57 50 mg ONCE ONE Administration Medical Decision Making Medical Decision Making MDM Narrative: Assessment & Plan Diagnosis: Dyspnea / acute on chronic hypoxemic respiratory distress; history of COPD and treated lung cancer. Differential diagnosis includes, but is not limited to, upper respiratory infection, pneumonia, COPD exacerbation, asthma exacerbation, CHF, pneumothorax, pleural effusion, pulmonary embolism, ACS. Broad-based work-up will be initiated to evaluate for etiology of patient's symptoms. Plan: Maintain supplemental oxygen; titrate to keep saturation > 92 %. Pending labs, ABG, chest X-ray, influenza/COVID panel, and EKG. Reassess after results; patient to notify staff immediately for chest pain or worsening dyspnea. Advance Care Planning Discussed code status: patient desires full code, including intubation/life support if necessary. Disposition Pending diagnostic results. Emergency Department Course Initial O2 saturation 93 % on 6 L. Blood work, arterial blood gas, chest X-ray, influenza and COVID testing, and EKG ordered. Patient instructed to report any chest pain or worsening symptoms. 7:06 AM 11/10/2025 (Dr. Sheila Patterson, D.O.) patient continues to improve on supplemental oxygen, flu and COVID swabs are negative, chest x-ray does not show evidence of significant pneumonia. She has chronic bilateral lower extremity scarring and infiltrates which are unchanged from her previous chest x-ray. That being said, initiating a dose of doxycycline and prednisone to help with her COPD exacerbation. Elevated BNP likely secondary to volume overload. She does have significant anemia which is close to previous on 10/23/2025. She has been steadily drifting down to 7.8 over the last several months from a baseline of around 12. No reported bleeding. Patient is not having any chest pain or significant dyspnea on exertion. PCO2 is 86 but she is not acidotic, suggesting metabolic compensation. Ordered a head CT due to patient complaining of feeling confused and having difficulty word finding however, she is speaking in full sentences to me and has no deficits on my exam. CT is negative for acute process in the brain. At this point, I feel she is stable for discharge back to the retirement with a course of prednisone and doxycycline. Discuss this with the patient at length. She understands and agrees with plan for discharge. Discharged in stable condition. Differential Diagnosis Differential Diagnoses: The differential diagnosis associated with the presentation includes (As above) Admission/Observation Consideration of admission/observation: Escalation of care including admission/observation considered Lab Data MDM Lab Attestation statement: I reviewed the patient's lab results. 11/10/25 01:36 11/10/25 01:36 Labs: Lab Results 11/10/25 11/10/25 11/10/25 Range/Units 01:36 02:16 06:13 WBC 7.5 (4.8-10.8) X10*3/uL RBC 3.02 L (4.20-5.50) X10*6/uL Hgb 7.8 L (12.0-16.0) g/dl Hct 27.5 L (37.0-47.0) % MCV 91.1 (80.0-98.0) fL MCH 25.8 L (27.0-33.0) pg MCHC 28.4 L (31.0-35.0) g/dl RDW 15.9 (11.0-16.0) % Plt Count 427 H (160-400) X10*3/uL MPV 9.0 L (9.4-12.3) fL Immature Gran % (Auto) 1.5 H (0.0-0.4) % Neut % (Auto) 79.4 H (45-73) % Lymph % (Auto) 6.8 L (20-40) % [place] % (Auto) 8.8 (2-11) % Eos % (Auto) 3.1 (0-4) % Baso % (Auto) 0.4 (0-2) % Lymph # (Auto) 0.5 L (1.2-4.9) X10*3/uL [place] # (Auto) 0.7 (0.1-1.2) X10*3/uL Eos # (Auto) 0.2 (0.0-0.4) X10*3/uL Baso # (Auto) 0.0 (0.0-0.2) X10*3/uL Abs Immat Gran (auto) 0.11 H (0.00-0.03) X10*3/uL Absolute Neuts (auto) 6.0 (2.0-8.3) x10*3/uL Absolute Nucleated RBC 0.000 (0.0-0.012) X10*3/uL Nucleated RBC % (auto) 0.0 (0.0-0.2) /100WBC VBG pH 7.43 (7.32-7.43) VBG pCO2 86 mmHg VBG pO2 74 mmHg VBG HCO3 58 H (22-26) mmol/L VBG O2 Saturation Not Reportable VBG Base Excess 29.7 mmol/L Sodium 142 (135-145) mmol/L Potassium 3.5 (3.3-5.1) mmol/L Chloride 90 L (96-108) mmol/L Carbon Dioxide 41 H* (22-29) mmol/L Anion Gap 15 (12-20) BUN 18 H (9-16) mg/dL Creatinine 0.90 (0.5-1.4) mg/dL Estim Creat Clear Calc 67.2 Estimated GFR > 60 Random Glucose 115 (60-115) mg/dL Calcium 9.8 (8.4-10.2) mg/dL Total Bilirubin 0.2 (0.0-1.0) mg/dL AST 19 (5-31) U/L ALT 8 (0-31) U/L Alkaline Phosphatase 64 (39-117) U/L Troponin I High Sens 11.6 D 11.5 (<3.5-17.0) ng/L NT-Pro-B Natriuret Pep 568.4 H (<300) pg/mL Total Protein 6.5 (6.5-8.0) g/dL Albumin 4.0 (3.5-5.0) g/dL Influenza Type A (PCR) NEGATIVE (Negative) Influenza Type B (PCR) NEGATIVE (Negative) RSV RNA Qual (PCR) NEGATIVE (Negative) SARS-CoV-2 RNA (RT-PCR) NEGATIVE (Negative) Independent Interpretation I performed an independent interpretation of an: EKG and Plain X-Ray Radiology Impression Discussion of test interpretation with radiology: I have reviewed the radiologist's reading. Independent Historian Clinical information obtained from an independent historian. History obtained from or confirmed by: EMS External Record Review External record reviewed: Inpatient record and Outpatient record Prescription Management I considered prescription management with: Pain Medication Chronic Conditions Patient?s care impacted by: Hypertension Social Determinants Patient?s care significantly limited by Social Determinants of Health including: Other Social Determinant of Health Discharge Plan Discharge Clinical Impression: Acute on chronic hypoxic respiratory failure, Acute exacerbation of chronic obstructive pulmonary disease, Acute exacerbation of CHF (congestive heart failure) Patient Disposition: Xfer SNF Instructions: Heart Failure (ED), COPD (Chronic Obstructive Pulmonary Disease) (ED) Additional Instructions: Take your antibiotic as prescribed until the course is completed. Do not stop this medication early if you start to feel better. Return to the emergency department with any new or worsening symptoms including: Worsening pain or chortness of breath, fevers greater than 100? despite antibiotic treatment, vomiting, or any new symptom that concerns you. Call 911 with any medical emergency. Prescriptions: New doxycycline monohydrate 100 mg capsule 100 mg PO BID 7 Days Qty: 14 0RF prednisone 50 mg tablet 50 mg PO DAILY 5 Days Qty: 5 0RF No Action fluticasone propionate 50 mcg/actuation spray,suspension 1 spray intranasal DAILY 30 Days Qty: 16 11RF montelukast 10 mg tablet 10 mg PO BEDTIME 90 Days Qty: 90 3RF ipratropium bromide 0.02 % solution 2.5 ml inhalation QID Qty: 300 11RF albuterol sulfate 2.5 mg /3 mL (0.083 %) solution for nebulization 2.5 mg inhalation QID Qty: 360 11RF albuterol sulfate 90 mcg/actuation HFA aerosol inhaler 2 puff INHALATION Q6H PRN (Reason: Respiratory Distress) Qty: 8.5 11RF theophylline 300 mg tablet extended release 12 hr 300 mg PO Q12H Qty: 60 8RF alendronate [Fosamax] 70 mg Tablet 70 mg PO DOMINGUEZ mirtazapine 15 mg tablet 7.5 mg PO BEDTIME docusate sodium 100 mg capsule 100 mg PO DAILY PRN (Reason: Constipation) pantoprazole 40 mg tablet,delayed release (DR/EC) 40 mg PO DAILY@0630 mineral oil Oil 1 appl TOPICAL Q48H PRN (Reason: eczema) Rx Instructions: apply to both outer ears topically aripiprazole 10 mg tablet 10 mg PO DAILY omega 2-jin-dcv-fish oil [Fish Oil] 1,000 mg (120 mg-180 mg) Capsule 1 cap PO BID Eliquis 5 mg tablet 5 mg PO BID furosemide 40 mg tablet 40 mg PO DAILY lamotrigine 200 mg tablet 200 mg PO BID lactulose [Enulose] 10 gram/15 mL solution 15 ml PO DAILY PRN (Reason: constipation) vilazodone 40 mg tablet 40 mg PO DAILY fluticasone furoate-vilanterol [Breo Ellipta] 200-25 mcg/dose blister with device 1 ea inhalation DAILY calcium carbonate [Oyster Shell Calcium] 500 mg calcium (1,250 mg) Tablet 500 mg PO BID cholecalciferol (vitamin D3) [Vitamin D3] 25 mcg (1,000 unit) Tablet 25 mcg PO DAILY atorvastatin 40 mg tablet 40 mg PO DAILY acetaminophen 325 mg Tablet 650 mg PO Q4H PRN (Reason: Fever/Pain) prednisone 10 mg Tablet 10 mg PO DAILY trazodone 50 mg Tablet 12.5 mg PO BEDTIME metoprolol succinate 100 mg tablet extended release 24 hr 100 mg PO DAILY acetazolamide 250 mg tablet 250 mg PO MOWEFR tramadol 50 mg Tablet 50 mg PO Q6H PRN (Reason: Pain) magnesium hydroxide [Milk of Magnesia] 400 mg/5 mL Suspension 30 ml PO DAILY PRN (Reason: Constipation) bisacodyl 10 mg Suppository 10 mg IL DAILY PRN (Reason: Constipation) aspirin 81 mg Tablet 81 mg PO DAILY loratadine [Claritin] 10 mg Tablet 10 mg PO DAILY Fleet Enema Extra 19-7 gram/197 mL Enema 118 ml IL DAILY PRN (Reason: Constipation) L.acidophilus-Bifido.longum [Probiotic Pearls] 15 mg (1 billion cell) Capsule,Delayed Release(Dr/Ec) 1 cap PO DAILY guaifenesin 600 mg Tablet Extended Release 12hr 1,200 mg PO BID PRN (Reason: Congestion) guaifenesin 600 mg Tablet Extended Release 12hr 600 mg PO BID doxycycline hyclate 100 mg capsule 100 mg PO BID 5 Days Qty: 10 0RF prednisone 20 mg tablet See Taper PO BID 7 Days Qty: 28 0RF Taper: Prednisone 40 mg daily for 5 Days and 0 Hour 30 mg daily for 5 Days and 0 Hour 20 mg daily for 5 Days and 0 Hour 10 mg daily for 5 Days and 0 Hour Rx Instructions: 40 mg daily for 5 Days; 30 mg daily for 5 Days; 20 mg daily for 5 Days; 10 mg daily for 5 Days sennosides [Senokot] 8.6 mg tablet 8.6 mg PO BEDTIME Rx Instructions: Hold for loose stools gabapentin 100 mg capsule 100 mg PO BID (DME) nebulizers Misc See Rx Instructions .Route Rx Instructions: As directed (DME) Oxygen Home Use Kit See Rx Instructions .Route Rx Instructions: As directed ferrous gluconate 324 mg (38 mg iron) tablet 324 mg PO DAILY Print Language: Slovak
[2025-11-10 09:39] VITALS: BP 123/52; PULSE 91; RESP 20; TEMP 36.6; O2SAT 100
== END 2025-11-10 09:46 | disposition skilled nursing facility (03) ==
PROVIDERS: Emergency Provider Emergency Medicine; PCP Family Medicine Geriatric Medicine
DX: J96.01 Acute respiratory failure with hypoxia (principal); J44.1 Chronic obstructive pulmonary disease with (acute) exacerbation; I50.9 Heart failure, unspecified; I49.1 Atrial premature depolarization; R41.82 Altered mental status, unspecified; Z03.818 Encounter for observation for suspected exposure to other biological agents ruled out; Z79.899 Other long term (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 therapy; Z79.51 Long term (current) use of inhaled steroids; Z85.118 Personal history of other malignant neoplasm of bronchus and lung; Z87.891 Personal history of nicotine dependence
CPT/HCPCS: 36415; 70450; 71045; 80053; 82803; 83880; 84484; 85025; 87637; 93005; 99284

== ENCOUNTER → 2025-11-10 01:22 | Outpatient (BNV) | payer OTHER, SELFPAY | PROVIDERS: Emergency Provider Emergency Medicine; PCP Family Medicine Geriatric Medicine; Visit Provider Internal Medicine Cardiovascular Disease | DX: I49.1 Atrial premature depolarization (principal) | CPT/HCPCS: 93010 ==

== ENCOUNTER → 2025-11-10 01:24 | Outpatient (BNV) | payer OTHER, SELFPAY | PROVIDERS: Emergency Provider Emergency Medicine; Visit Provider General Practice | DX: R41.82 Altered mental status, unspecified (principal); R91.8 Other nonspecific abnormal finding of lung field | CPT/HCPCS: 70450; 71045 ==

== ENCOUNTER 2025-11-13 09:14 | Outpatient (AMB) | payer OTHER, SELFPAY ==
--- NOTE | 2025-11-13 09:16 | A.OFFVIS_ITS ---
Vital Signs 11/13/25 09:17 Height 5 ft 5 in BMI Reason not done Patient refused/unable BP 140/50 H Blood Pressure Location Lt brachial Position Sitting Pulse 102 H Pulse Source Pulse Oximeter Pulse Oximetry (%) 93 Oxygen Delivery Method Nasal Cannula Oxygen Flow Rate 4 Intake Visit Reasons: Respiratory Failure Tennis Instructor Required: No Dixonac Operator: Dixonac Operator offered & declined Allergies fluoxetine Allergy (Severe, Verified 11/13/25 09:24) Irritable codeine (Codeine) Allergy (Intermediate, Verified 11/13/25 09:24) RESTLESS/RASH haloperidol (Haldol) Allergy (Intermediate, Verified 11/13/25 09:24) Palpitations HPI Comments Details: The patient is a 70-year-old woman with known history of COPD and chronic hypoxic and hypercarbic respiratory failure. She 1st did require a tracheostomy in the past and she had a prolonged hospitalization which she was able to be decannulated. She was then placed on noninvasive ventilation. The patient has been inconsistent with the usage. In January of this year the patient was admitted to the hospital with acute on chronic hypercarbic respiratory failure where her pCO2 was about 118 mmHg.. The patient was placed on noninvasive ventilation and her pH normalize and her average pCO2 was between 60-70. She was discharged to use her trilogy at home. At home she is still struggling with the noninvasive ventilator. She has a hard time getting used to it. Her [employer] will be performing overnight oximetry with an end-tidal CO2 to measure her see you to into appropriately adjust her noninvasive ventilator. She also has made mentioning that she has been more short of breath and she has had more hypoxia. In the office we did perform a 6 minutes walk test and she did require 2 L nasal cannula to maintain her pulse ox above 90%. Therefore, she will be using 3 L instead of to with activity and also with sleep. 04/15/2023 the patient is here for pulmonary follow-up visit. She still residing at the [facility]. She is using her trilogy noninvasive ventilator every night. However, she has been using more recently because she ended up in the hospital. She was having chest pressure sensation and dizziness. During the hospitalization at [facility] the patient states that she had an ABG done demganesh ortegating a pCO2 58 and per report was okay. Therefore, will hold off on doing an ABG today. The patient has been fairly relatively well from a respiratory status. She does complaint of heaviness of the chest. On examination she is very diminished. Therefore likely has significant air trapping hyperinflation them every resulting in some chest pressure sensation. I did recommend she start using the trilogy with a sip and puff during the daytime to help her with the air trapping. The patient has also gained weight and that is also going to contribute to additional respiratory symptoms. The patient needs to start working on weight management with the help of the services provided. The patient is using her diuretics with good effect. No significant edema at this time. It is not clear if she is using the theophylline. She has been on multiple medications and has got to multiple institutions so therefore it is hard to know if those removed and if it was stopped for particular reason. We should recheck her theophylline levels if she is on theophylline. Otherwise restart the theophylline if she is off it and then recheck levels. She should stay within the low therapeutic range to help her with her severe COPD. Patient is using her oxygen at 3 L continues with good effect. Again, I reached out to the [employer], to rete she had uses sip and puff device that she can use during the daytime 06/17/2023 the patient is here for pulmonary follow-up visit. The patient has been doing well. She is looking now to move to a penitentiary. in the meantime she is using her noninvasive ventilator. The noninvasive ventilator has been affecting beneficial. We did have her undergo a venous blood gas in appears that her pH is stable. She understands that if she does move to a penitentiary she went to find a way to make sure that she continues use her noninvasive ventilator as prescribed. She continues on respiratory therapy. She continues oxygen supplementation at 3 L could would response. 09/20/2023 the patient has a telehealth visit today. Unfortunately she could not make it in from her residence. She has been more depressed lately. She has recently found out that she lost the services from her [facility]. There been with her for many years. In addition to that the patient has not been using her Trelegy ventilator. She is try to find out how long she can go without it. She was wondering if she can have blood work to see how well her CO2 is while she is not using it. However, I encouraged her to use it since we know that her baseline CO2 is already elevated and by using the ventilator she has better reserved in case she develops an exacerbation or an acute illness. The patient will start using her ventilator at nighttime. I did put him for blood work and she can always have the blood work done here or she can find out another means of doing a. But getting a blood gas will be difficult to do otherwise. The patient did recently have a respiratory illness with a virus. Was not COVID. She was not giving any prednisone or antibiotics. Her cough is not too bad. If the cough worsens with worsening congestion then using a antibiotic to minimize on the postviral bacterial infections would be reasonable. 12/23/2023 the patient is here for a pulmonary follow-up visit. Since we last spoke the patient did have a fall on her custodial. She fractured multiple ribs and was admitted to [facility] with acute on chronic hypercarbic respiratory failure. She was placed on BiPAP and was able to stabilize. She did not require invasive ventilation. The patient had not been using her noninvasive ventilator at the custodial. This is unfortunate. She understands the with her condition she relies on this therapy. The patient has been using now regularly since she was discharged from the hospital. She is looking to be placed in a penitentiary. Therefore, she is making the arrangements. We did have her undergo a venous blood gas today and her acid- base status is stable and pCO2 is back to her baseline. Her bicarbonate always will be elevated to try to compensate for the hypercarbia and right now is at 37. she does continue to use her respiratory therapy as prescribed. She is also using oxygen continuously throughout the day with good effect. Once the patient is out of the custodial to a penitentiary will see about getting pulmonary function studies and starting outpatient pulmonary rehabilitation. Also to note while she was at [facility] she did have a CT scan of the chest that was personally by me. She had multiple rib fractures on the left 1 which was displaced. Also has small subcentimeter pulmonary nodule that will follow-up in a year's time. 02/21/2024 the patient is here for pulmonary follow-up visit. The patient overall has been doing well. She did move out of the custodial in currently in a penitentiary. She is getting a lot of support. She is taking all her medications. Although, the theophylline 400 mg is not available. I will try sending her a different does see that was available and also will check theophylline levels. The patient has been using her noninvasive ventilator at nighttime. The therapy has been affecting beneficial. We did have her get blood work and it appears that her bicarb is down to 32 which is very encouraging. The patient also has been using her oxygen at 3 L continues will keep a go above 88%. The patient is able to increase it to 4 L if her oxygen is dropping below 88%. Will go ahead and request pulmonary function studies and plan for pulmonary rehabilitation at this time. Will follow-up in 3 months or sooner if any new issues arise. 05/24/2024 the patient is here for a pulmonary follow-up visit. She was recently at [facility]. There was an issue with her oxygen. Now she is back to her penitentiary. the having hard time regulating her oxygen. We did have her come in for 6 minute walk test. The patient needs 6 L of oxygen with activity and at least 2 L at rest. Although typically she needs more than 2 to keep her pulse ox above 90%. We did review her CT scan of the chest that she had while at [facility]. She has extensive emphysema which explains her very labile oxygen requirements. In addition to that she does have some pulmonary nodules that appear to have increased in size primarily in the left hemithorax. She will need a repeat CT scan in the next 3 months. She has minimal reserve. We did look at her previous PFTs demonstrating very severe COPD and severe diffusion impairment. however, the patient has been fairly well although she has had although severe disease. She has been using her noninvasive ventilator at nighttime. At least 6 hours. We did have her go for blood work including a venous gas demonstrating appears due to a baseline 61 mm of Hg. The patient does have some lower extremity edema. She will benefit from additional diuresis. In addition to that she is having increased wheezing chest tightness and cough. Therefore will send her a prednisone taper and also start an antibiotic. This will be to treat her for COPD exacerbation. She has participating in the pulmonary rehabilitation. She has fine the very affecting beneficial. She will continue for now. 07/06/2024 the patient is here for a pulmonary follow-up visit. She has been in an out of hospital. She has been trying to use her noninvasive ventilator more regularly. She understands it is a necessity for her to use it at least every night. She also continues with respiratory therapy. She has been responding well to the oxygen supplementation. Last blood gas was back the end of May demonstrating a pCO2 around 70 which is close to her baseline. She continues with respiratory therapy with good effect. Appears to have increasing lower extremity edema. Likely secondary to a component I will call pulmonale. Needs to continue with a low sodium diet and diuresis. CXR from 06/21/23 personally reviewed by me without any acute changes. 09/13/2024 the patient has a telehealth visit today. She is status post couple hospitalizations. Now she is at rehab and this is a telehealth. The patient initially was admitted to [facility] back at the end of June with acute on chronic respiratory failure. She was diagnosed with COVID a. During that admission she did have a CT a that I did evaluate. She did have an irregular nodular density in the left upper lobe likely infectious process although since his new and she is high risk for cancer we can not rule out lisandra gnancy. She was treated and then subsequently discharged back to her penitentiary. Subsequently after that she went to [facility]. The details are not available but she likely had a tachyarrhythmia. She did require cardioversion. Afterwards the patient was transferred to [facility] which is currently getting rehabilitation. She feels weak. She has a hard time walking. Her oxygen requirements are still about the same 3 L at rest and 6 L with activity. She is also having issues with her noninvasive ventilator which she is waking up short of breath. Therefore, will have her have a repeat 6 minute walk test while she is there she should also continue with multi disciplinary therapies in addition to that will talk to respiratory there to see if they can tweak her ventilator to a higher pressure to help her with those difficult times. The patient plans to go back to her penitentiary. 10/22/2024 the patient is here for hospital follow-up visit. She had been in the hospital with acute on chronic hypoxic and hypercarbic respiratory failure and subsequently went to [facility]. She is currently read some. She is not going back to the penitentiary. She is trying to feel better enough to be able to go to her daughter's. There she could have some assistance from with the family and also some medical assistance. But she is still not clear. She does use the noninvasive ventilator. She did get an placement while at rest own. She is tolerating well. Will have her get a blood gas to see what her CO2 is. In addition to that which she check her theophylline level since she has noticed some tachycardia. She continues to feel weak. She feels like her legs want to give out when she is ambulating. Strikes me that could be related to her CO2 as she has had issues with falls and weakness when her CO2 elevates. 11/15/2024 the patient is here for pulmonary follow-up visit. Since we last spoke she went to [facility] with worsening shortness of breath. There she did have a CT scan of the chest which I personally reviewed. This was done 11/02/20[address] she [address] a [address] scan here at [facility] in the summer of 2023 and she had another CT scan at [facility] in 12/17/2023. I did review all of them. She does have a left upper lobe pulmonary nodule that appears to be worsening. There is significant concerned with his nodule for a smoldering infection process such as a fungal infection could be a localized bacterial infection but could also be a malignant process. The patient understands that her lung capacity significantly limited and with end-stage pulmonary disease and we difficult to do any invasive or semi-invasive procedures for diagnostic purposes. Therefore, rather treat her empirically. Will go ahead and request blood work including galactomannan and other laboratories. And will go ahead and treat her for potential staph infection or fungal infection. Plan to repeat the CT scan a couple months. If the area still present then will have to discuss how to proceed. Again, the patient is high risk for any intervention. In the meantime she has been using the noninvasive ventilator. The ventilator has been affecting beneficial although she continues to have elevations in the CO2. Will have to adjusted accordingly. The patient also may have a component of sleep apnea and an in-lab sleep study may be helpful as well to further addr ess any significant sleep apnea and subsequently asleep PAP titration study to properly treat her underlying sleep apnea. She will continue with current respiratory therapy as prescribed. She will continue with the oxygen as prescribed. 12/20/2024 the patient is here for a pulmonary follow-up visit. Overall she is doing well. She is moving out of bed some going with her daughter. She is excited. In the meantime she has been using her noninvasive ventilator every night. The therapy has been affecting beneficial although she feels like sometimes she wakes up breathless and sometimes her oxygen requirements are increased. We will request a download in order to be able to adjust the machine accordingly with the help of [employer]. In addition to that she was admitted briefly to [facility] with significant anemia. She was placed on iron and now she is a little constipated. She is going to monitor closely her anemia specially because of her significant respiratory disease the anemia will ultimately resulting significantly worsening respiratory symptoms. If we not able to adjust her noninvasive ventilator appropriately that we can always consider a titration study. She also had an abnormal CT scan back in October and we had requested repeat. In the meantime she went to [facility] she did have a chest x- ray which is reassuring. Demonstrating emphysema and chronic stable findings. 01/18/2025 the patient is here for a pulmonary follow-up visit. Overall she is doing better. She was sickly with flu-like symptoms but now she is back to her baseline. She is using her noninvasive ventilation at nighttime although she still trying to find the right mask. We did have a phone small air touch F20 mask available. Seems to fit well and I believe she will do better with a full mask so it does not make as much noise. The patient also has been using her respiratory therapy. I will send all her medications to the pharmacy. In addition to this the patient did have a CT scan of the chest that we personally certainly reviewed and compared to her previous CT from from June. It appears that the masslike density in the left upper lobe is getting bigger. It is concerning for malignancy specially since she was treated for fungal infections and she has been treated for infectious bacterial infections as well without any evidence of any improvement. Therefore, will go ahead and request a PET scan to see if there is any significant evidence of hypermetabolic activity. Any kind of biopsy would be dangerous because of her significant respiratory failure. We can also consider stereotactic radiation to the area if is concerning enough on the PET scan without a biopsy. Will plan to follow-up after her PET scan several weeks. 02/21/2025 the patient is here for a pulmonary follow-up visit. Overall the patient has been feeling much better from a respiratory status. She has been using her noninvasive ventilator the whole night sometimes up to 10 hours a day. This is helping her feel better overall. Her respiratory medications and regimen is seems to be stable and she is tolerating it. She is gaining weight and we did talk about that. She needs to work on portion control Lifestyle changes. In the meantime she did undergo a PET scan. We did personally review together. She did have an FDG activity of 8 of the area of the left upper lobe peripheral nodular density. Indeed is concerning. She was already treated empirically for aspergilloma and also treated with antibiotics. This area indeed is concerning for malignancy. The issue is that she does have significant chronic hypercarbic and hypoxic respiratory failure and any procedure will potentially high risk. We did talk about a CT-guided biopsy although would have to go to her breast tissue and could result in a pneumothorax and so peripheral. The other option will be navigational bronchoscopy robotic bronchoscopy under general anesthesia. Which she should be able to tolerate but the anesthesia is indeed concerning for worsening perioperative complications. Will go ahead and refer her to Interventional Pulmonary to see if any interventions could be considered for her. In the meant ruthann will go ahead and treat her with Bactrim although she has not allergy. Want to make sure we treat for smoldering infection such as Nocardia which can manifest in this form. Therefore the patient will start Bactrim I put him for CAT scan for 6 weeks from now to see those any improving the area and also she will follow-up with intervention a pulmonary. 05/08/2025 the patient is here for a pulmonary follow-up visit. The patient has been having a very busy few months. She did follow-up with Interventional Pulmonary she was diagnosed with lung cancer. Now she is following closely with oncology and radiation oncology. She is going to be starting SBRT and then after that she is going to receive chemotherapy with immune therapy. The patient is not a candidate for surgical resection because her very limited respiratory capacity. She has been using her trilogy at nighttime. The noninvasive ventilator has been affecting beneficial. However she is having hard time tolerating the pressures and she is having hard time with hypoxia. I am going to talk to [employer] to see if we can switch her over to astral and also we can adjust her pressures accordingly. The patient will continue to use her respiratory medications as prescribed. She is having some chest congestion. I do believe that Ohtuvayre would be a good addition chronic bronchitis and the fact that she will be able to use any prednisone while on immune therapy. She is going to talk about it with her daughter and the let me know if she wants me to start the process of required thin the medication. The patient will return in 6-8 weeks. If she has any issues prior to that she will call for an earlier assessment. 06/26/2025 the patient is here for a pulmonary follow-up visit. She is status post SBRT. She has had issues with radiation pneumonitis. The patient has been on prednisone currently at 15 mg. She continues use her respiratory therapy and also her oxygen supplementation up to 6 L with activity. Although, even on the 6 L she is still desaturating down to the low 80s if not high 70s. She is also using the oxygen with her noninvasive ventilator, trilogy at nighttime. She is still having issues with the pressures are so high that is pushing the mask off her face. Makes it very uncomfortable for her to use. I did reach out to her [employer] and did send some adjustments decreasing her tidal volume increasing her maximum pressure is and also increasing the respiratory rate to try to maintain a certain minute ventilation. Will have her get blood work today. In view of her significant hypoxia will have to rule out possibility of radiation pneumonitis but also other conditions such as thromboembolic disease specially with her lung cancer she is a high risk for blood clots. The patient also did have a walking oximetry and she did require up to 6 L with activity. Will adjust her medications accordingly based on her x-ray and blood work. In the meantime she is waiting to get stabilized to be able to get a port in order to start chemotherapy. I am concerned with the degree of respiratory failure any procedure will be high risk. 07/25/2025 the patient is here for pulmonary follow-up visit. She was recently hospitalized at [facility] with worsening respiratory breathing. Her noninvasive ventilator was adjusted. She seems to be tolerating it better. She continues on the oxygen. She also was diuresed. Her volume status is better and she does take Lasix as needed if she does gained 2 lb in 24 hours a 3 lb in 48 hours. She did start recently chemotherapy. She seems to be tolerating the paclitaxel on the cisplatin. She has received the 1st dose. Although the port looks a little bit inflamed. Will go ahead and started on some doxycycline and also check some blood cultures just in case. She will call her oncologist to make sure that they can evaluate the port access. In the meantime the patient continues her respiratory therapy. She is tolerating it well. Still has dyspnea on exertion. Moderate severity. She is on 15 mg of prednisone. Her respiratory exam is reassuring. Will try to decrease her prednisone slowly down from 15 mg to 10 mg. Will plan to get blood work today. 08/28/2025 the patient is here for pulmonary follow-up visit. Overall she is doing okay. She was hospitalized after getting chemo with a COPD exacerbation a nd pneumonitis. She was treated with high-dose steroids in addition to antibiotics. She is now rehab. She is recovering. Although she has been more forgetful. She has not been using her noninvasive ventilator which is a concern. She understands that which she does not use the none invasive ventilator her CO2 increases and results in CO2 narcosis. Some of her memory gaps right now maybe 2 due to the fact that his already rising. She is already getting some tremors. If he does not start using it soon she went though going into worsening narcosis. I did make a note to the rehab for her to start using it more regularly. In the meantime the need to monitor her bicarbonate. If her bicarbonate breathing 40 they can provide her with some Diamox 250 mg x 1. She should continue with the oxygen. She did well on 2 L maintaining a pulse ox about 94%. She should keep her range of oximetry between 88-95% to minimize too many high numbers. When she ambulates she can be on 3-4 L to maintain a pulse ox in the mid 90s. The patient will follow-up with Oncology sometime mid August and figure out what to do next if they going to try her again on chemo find a more gentle chemotherapy or if they are going to hold off completely. In the meantime follow-up imaging studies to monitor the pulmonary nodules to make sure we follow the evolution. 09/19/2025 the patient is here for pulmonary follow-up visit. Overall the patient has been doing okay. She did follow-up with Oncology and they stopped all chemotherapy and radiation since she has a hard time tolerating it. She is going to have a PET scan in the coming weeks and figure out radiological staging. The patient is considering palliative care maybe hospice in the future. For now she is using her noninvasive ventilator every night. The therapy has been affecting beneficial. Sometimes she does desaturate at night and she will go ahead and increase her oxygen from 4 L to 5 L at this time. When she is situated we can always do an overnight oximetry. In the meantime though she likely will have to hinder in the Trelegy and will get a different machine from a different company since she is not a custodial. If she can not get a noninvasive ventilator she can use the BiPAP ideally ST with a backup rate. We can talk about that further depending on the process. For now she will continue with the Trelegy every night with the oxygen. She also continues the oxygen with activity to maintain a pulse ox of 88-95%. She continues with respiratory therapy as prescribed. She will had been taking Diamox and her bloo d work looks reassuring. Will follow-up in 2 months if she has any worsening issues or any concerning issues she can always call for further recommendations. 11/13/2025 the patient is here for pulmonary follow-up visit. Overall the patient is doing about the same. She does have multiple complaints though. The patient is concerned about her oxygen levels dropping at nighttime. She is using the Trelegy noninvasive ventilator and also using 6 L of oxygen at nighttime. She gets that through life supplies. Will go ahead and request a overnight oximetry that was performed to see if she is getting adequate oxygenation. In the meantime I did ask her to stop checking her oxygen levels specially since she is already close to maximum therapy. Will see if the overnight oximetry is abnormal and we can adjusted accordingly. In the meantime the patient did get an admission to the hospital here back in September. She did have a CTA which I personally reviewed demonstrating extensive emphysematous changes. The patient does have the nodular changes in the left upper lobe area. The area appears to be abnormal but it does not appear to be significantly worse. She unfortunately could not tolerate chemo therapies right now oncology is no longer following her. She continues use her respiratory therapy continues to be on diuretics including Diamox 3 times a day. She does get blood work frequently. The last blood gas she had she still has evidence of chronic hypercarbic respiratory failure. But at least no evidence of any acute on chronic. The patient continues to be chronically ill and continues to be on maximum respiratory will plan to follow-up in a couple months. In the meantime the patient will continue with the current respiratory regimen. I did provide her a different mask, F20 full foam mask. I do believe she will do better with a type of mask although is a little too big for her. If it does seem to work better for her she can always request the foam mask from her [employer] company[employer] [facility] Medical History Lung cancer Pulmonary nodule 1 cm or greater in diameter Lung mass RITA (obstructive sleep apnea) Cor pulmonale Rib fractures Pulmonary nodule Tubular adenoma of colon (~2006) Osteopenia (~2012) Bronchopneumonia Chest pain Chronic respiratory alkalosis ILD (interstitial lung disease) CO2 retention Acute on chronic respiratory failure with hypoxia and hypercapnia Bipolar depression Eczema Limb swelling Insomnia Bronchitis Vasomotor rhinitis COPD (chronic obstructive pulmonary disease) Chronic respiratory failure Fall Acute metabolic encephalopathy Acute and chronic respiratory failure with hypercapnia Surgical History History of carpal tunnel surgery (~2000) History of ventral hernia repair (~2003) History of left inguinal hernia repair (~1995) History of tracheostomy (~2016) History of cataract surgery (~2018) History of colonoscopy Family History Other Hypertension Social History Household Members: Other Household Members Other:: Daughter, son-in-law, grandchildren Housing: Senior Living Housing Other:: penitentiary Are you a primary lead care manager to a significant other at home: No Do you presently have visiting nurse or other home services: No Alcohol intake: former Patient Tobacco Use Status: Former Tobacco user Tobacco use type: Cigarette Years Smoked: 20+ years e-Cigarette/Vaping Use: Never Used Second Hand Smoke Exposure: No Advance Directives Date on File: 11/30/21 service: No Current occupational status: disabled Review of Systems Const Reports fatigue, Denies night sweats and Reports weight gain ENT Denies change in voice, Denies lip swelling, Denies mouth pain, Reports nasal congestion, Reports nasal discharge and Denies tongue swelling Card Denies chest pain, Reports pedal edema, Reports dyspnea and Reports dyspnea on exertion Resp Denies change in phlegm color, Denies chest congestion, Reports cough, Reports dyspnea, Reports dyspnea on exertion and Denies wheezing GI Denies abdominal pain Musc Denies no additional complaints, Reports abnormal gait and Reports muscle weakness Skin/Breast Denies erythema and Denies skin swelling Neuro Denies Neuro-related abnormal movements, Reports abnormal gait, Denies memory loss and Denies tremor(s) Psych Reports depression and Denies memory loss Endo Reports fatigue Gerson/Lymph Denies easy bleeding and Denies lymphadenopathy Aller/Immun Denies lip swelling, Denies tongue swelling and Denies wheezing Physical Exam Vital Signs: Last Vital Signs Pulse 102 H 11/13/25 09:17 BP 140/50 H 11/13/25 09:17 Pulse Ox 93 11/13/25 09:17 Oxygen Delivery Method Nasal Cannula 11/13/25 09:17 Oxygen Flow Rate 4 11/13/25 09:17 Last Vital Signs Temp 98.0 F 08/09/25 11:32 Pulse 74 08/09/25 11:39 Resp 17 08/09/25 11:39 BP 126/55 L 08/09/25 11:32 Pulse Ox 94 08/09/25 11:32 O2 Del Method Oxymask 08/09/25 11:32 O2 Flow Rate 6 08/09/25 11:32 FiO2 60 08/08/25 23:27 Oxygen Flow Rate 6 08/06/25 13:53 BMI result Body Mass Index 32.0 Const General: alert HEENT Head: Yes normocephalic Neck Neck: Yes normal visual inspection, Yes full ROM and Yes no lymphadenopathy Chest Chest palpation & inspection: normal inspection of the chest Resp Effort & Inspection: normal respiratory effort and prolonged expiratory phase Auscultation: diminished lung sounds Cardio Rate: regular rate Rhythm: regular rhythm Heart sounds: S1 normal heart sound present and S2 normal heart sound present GI Palpation (GI): Soft to palpation and nontender Auscultation: normal bowel sounds Skin General skin exam: no rashes or lesions noted Results Reviewed Results Reviewed: perdonally reviewed CT chest with CELINA lesion and extensive emphysema Assessment & Plan Assessment & Plan (1) COPD (chronic obstructive pulmonary disease): Code(s): J44.9 - Chronic obstructive pulmonary disease, unspecified Category: Medical Qualifiers: COPD type: emphysema Emphysema type: centrilobular Qualified Code(s): J43.2 - Centrilobular emphysema (2) Pulmonary nodule: Code(s): R91.1 - Solitary pulmonary nodule Category: Medical (3) Chronic respiratory failure: Code(s): J96.10 - Chronic respiratory failure, unspecified whether with hypoxia or hypercapnia Category: Medical Qualifiers: Respiratory failure complication: hypoxia and hypercapnia Qualified Code(s): J96.11 - Chronic respiratory failure with hypoxia; J96.12 - Chronic respiratory failure with hypercapnia (4) Respiratory failure: Code(s): J96.90 - Respiratory failure, unspecified, unspecified whether with hypoxia or hypercapnia Category: Medical Qualifiers: Chronicity: chronic Respiratory failure complication: hypoxia and hypercapnia Qualified Code(s): J96.11 - Chronic respiratory failure with hypoxia; J96.12 - Chronic respiratory failure with hypercapnia (5) RITA (obstructive sleep apnea): Code(s): G47.33 - Obstructive sleep apnea (adult) (pediatric) Category: Medical (6) Lung cancer: Code(s): C34.90 - Malignant neoplasm of unspecified part of unspecified bronchus or lung Category: Medical Qualifiers: Laterality: left Lung location: unspecified part of lung Qualified Code(s): C34.92 - Malignant neoplasm of unspecified part of left bronchus or lung (7) Chronic hypoxic respiratory failure: Code(s): J96.11 - Chronic respiratory failure with hypoxia Category: Medical Plan continue noninvasive ventilator use with 6L O2. Will try F20 Foam mask, provided a sample, but may need smaller size (med) Need to review overnight oximetry from [employer] completed SBRT and chemo/immune therapy; stopped all paclitaxel.cisplatin after hospitalization after initial therapy due to adverse effects continue Breo continue Incruse continue Ohtuvayre once the pt reviews the info and agrees to start oxygen at 2-3 liters/minute at rest and 5-6L/minute with activity to keep pox 88-95% weight management lasix as needed Diamox MWF F/U 2-3 months Coding Level of Care Code Est Pt Level 5 (62908) Diagnoses Centrilobular emphysema J43.2 COPD type: emphysema Emphysema type: centrilobular Pulmonary nodule R91.1 Chronic respiratory failure with hypoxia and hypercapnia J96.11; J96.12 Respiratory failure complication: hypoxia and hypercapnia Chronic respiratory failure with hypoxia and hypercapnia J96.11; J96.12 Chronicity: chronic Respiratory failure complication: hypoxia and hypercapnia RITA (obstructive sleep apnea) G47.33 Malignant neoplasm of left lung, unspecified part of lung C34.92 Laterality: left Lung location: unspecified part of lung Chronic hypoxic respiratory failure J96.11 Time Spent (min) 50
[2025-11-13 09:17] VITALS: BP 140/50; PULSE 102; O2SAT 93
--- OUTSIDE RECORDS SUMMARY | 2025-11-13 10:20 | XMS_ITS ---
Author Organization [address] [facility] Address [address] [place] [address] Phone Care Team Providers Care Developmental Education Instructor Name Role Phone Rabia Barrongeovanny Jacqueline APPEALS REVIEWER VETERAN Primary Care Provid er Active Problems Problem [...] on CPAP 11/08/2017 Overview (09/12/2024): Life supply/cpap [facility] Polysomnogram Trilogy treatment study. 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
--- OUTSIDE RECORDS SUMMARY | 2025-11-13 10:20 | XMS_ITS | Encounter Summary ---
Author Organization [facility] Address [address] [place] [address] Care Team Providers Care Button Tufter Name Role Phone Kinjal Barron PUBLIC SPEAKING INSTRUCTOR Primary Care Provid er Encounter Details Date Type Department Care Team (Late st Contact Info) Description 12/11/2024 Lab Requisition [facility] - Main Lab [address] [place] [address] Glenroy Goff MD [address] [place], [phone] Chronic obstructive pulmonary disease, unspecified (CMS/HCC [...] Description 02/18/2026 10:30 AM EDT Office Visit [facility] Hematology Oncology [address] [place] [phone] Lashanda Mcgill, DO [address] [place] [address] documented as of this encounter Procedures Procedure Name Priority Date/Time Associated Diagnosis Comments COMPLETE BLOOD COUNT Routine 12/11/2024 6:30 AM EST Chronic obstructive pulmonary disease, unspecified (CMS/HCC) BASIC METABOLIC PANEL Routine 12/11/2024 6:30 AM EST Chronic obstructive pulmonary disease, unspecified ([facility]/HCC) documented in this encounter Results * [...] LAB CHEMISTRY METHOD 12/11/2024 11:11 AM EST [facility] eGFR 76 >=60 mL/min/1. [...] Resul t [facility] [address] [place] [address], * (ABNORMAL) Complete blood count (12/11/2024 6:30 [...] LAB HEMETOLOGY METHOD 12/11/2024 11:11 AM EST [facility] MCHC 27.9(L) 32.0 - 37.0 g/dL LAB HEMETOLOGY METHOD 12/11/2024 11:11 AM [facility] RDW 15.7(H) 11.0 - 15.0 % LAB HEMETOLOGY METHOD 12/11/2024 11:11 AM EST [facility] Platelets 399 130 - [...] Resul t [facility] [address] [place] [address], documented in this encounter Visit Diagnoses Diagnosis [...] documented as of this encounter Care Teams Button Tufter Relationship Specialty Start Date End Date Kinjal Barron FNP [address] [place] [address] PCP - General Family Medicine 03/06/25 documented as of this encounter
--- OUTSIDE RECORDS SUMMARY | 2025-11-13 10:21 | XMS_ITS | Encounter Summary ---
Author Organization [facility] Address [address] [place] [address] Care Team Providers Care Transit Mixer Operator Name Role Phone Kinjal Barron REGULATORY ANALYST Primary Care Provid er Encounter Details Date Type Department Care Team (Late st Contact Info) Description 11/09/2024 Lab Requisition [facility] - Main Lab [address] [place] [address] Janice Núñez MD [address] [place], [place] [phone] Chronic obstructive pulmonary disease, unspecified (CMS/HCC V24, [...] Description 02/18/2026 10:30 AM EDT Office Visit [facility] Hematology Oncology [address] [place] [phone] Lashanda Mcgill, DO [address] [place] [address] documented as of this encounter Procedures Procedure [...] mmol/L LAB CHEMISTRY METHOD 11/12/2024 4:30 PM [facility] Potassium 4.1 3.5 - 5.5 mmol/L LAB CHEMISTRY METHOD 11/12/2024 4:30 PM [facility] Chloride 92(L) 96 - 110 mmol/L LAB CHEMISTRY METHOD 11/12/2024 4:30 PM [facility] CO2 43(HH) 21 - 32 mmol/L LAB CHEMISTRY METHOD 11/12/2024 4:30 PM [facility] Anion Gap 6 3 - 11 LAB CHEMISTRY METHOD 11/12/2024 4:30 PM [facility] Glucose 90 70 - 100 mg/dL LAB CHEMISTRY METHOD 11/12/2024 4:30 PM [facility] BUN 11 5 - 25 mg/dL LAB CHEMISTRY METHOD 11/12/2024 4:30 PM [facility] Creatinine 0.98 0.50 - 1.10 mg/dL LAB CHEMISTRY METHOD 11/12/2024 4:30 PM [facility] eGFR 62 >=60 mL/min/1. 73m2 LAB CHEMISTRY METHOD 11/12/2024 4:[address] [facility] Comment:Calculation based on the Chronic Kidney Disease Epidemiology Collaboration (CKD-EPI) equation refit without adjustment for race. BUN/Creatinine Ratio 11.2 LAB CHEMISTRY METHOD 11/12/2024 4:[address] [facility] Calcium 9.3 8.5 - 10.5 mg/dL LAB CHEMISTRY METHOD 11/12/2024 4:30 PM [facility] Blood Venous blood specimen / Unknown Venipuncture / Unknown 11/12/2024 8:41 AM EST 11/12/2024 11:35 AM EST us Janice Núñez MD LAB BLOOD ORDERABLES Final Resul t [facility] [address] [place] [address], * (ABNORMAL) Complete blood count (11/12/2024 8:41 AM EST) WBC 6.1 4.8 - 10.8 K/mcL LAB HEMETOLOGY METHOD 11/12/2024 11:55 AM [facility] RBC 3.50(L) 3.80 - 4.80 M/mcL LAB HEMETOLOGY METHOD 11/12/2024 11:55 AM [facility] Hemoglobin 9.2(L) 11.5 - 16.0 g/dL LAB HEMETOLOGY METHOD 11/12/2024 11:55 AM [facility] Hematocrit 32.4(L) 35.0 - 47.0 % LAB HEMETOLOGY METHOD 11/12/2024 11:55 AM [facility] MCV 93.9 79.0 - 98.0 FL LAB HEMETOLOGY METHOD 11/12/2024 11:55 AM [facility] MCH 26.7(L) 27.0 - 32.0 pcg LAB HEMETOLOGY METHOD 11/12/2024 11:[address] [facility] MCHC 28.4(L) 32.0 - 37.0 g/dL LAB HEMETOLOGY METHOD 11/12/2024 11:55 AM [facility] RDW 14.4 11.0 - 15.0 % LAB HEMETOLOGY METHOD 11/12/2024 11:55 AM [facility] Platelets 435(H) 130 - 400 K/mcL LAB HEMETOLOGY METHOD 11/12/2024 11:55 AM [facility] MPV 9.7 7.0 - 11.0 FL LAB HEMETOLOGY METHOD 11/12/2024 11:55 AM [facility] NRBC 0.0 <1.0 % LAB HEMETOLOGY METHOD 11/12/2024 11:55 AM [facility] NRBC Absolute 0.00 <0.10 K/mcL LAB HEMETOLOGY METHOD 11/12/2024 11:55 AM [facility] Blood Venous blood specimen / Unknown Venipuncture / Unknown 11/12/2024 8:41 AM EST 11/12/2024 11:35 AM EST us Janice Núñez MD LAB BLOOD ORDERABLES Final Resul t [facility] [address] [place] [address], documented in this encounter Visit Diagnoses Diagnosis [...] documented as of this encounter Care Teams Transit Mixer Operator Relationship Specialty Start Date End Date Kinjal Barron FNP [address] [place] [phone] PCP - General Family Medicine 03/06/25 documented as of this encounter
--- OUTSIDE RECORDS SUMMARY | 2025-11-13 10:21 | XMS_ITS | Encounter Summary ---
Author Organization [facility] Address [address] [place] [address] Care Team Providers Care Ticker Wirer Name Role Phone Kinjal Barron SENIOR POLICY ADVISOR Primary Care Provid er Encounter Details Date Type Department Care Team (Late st Contact Info) Description 11/02/2024 Lab Requisition [facility] - Main Lab [address] [place] [address] Janice Núñez MD [address] [place], [place] [phone] Chronic obstructive pulmonary disease, unspecified (CMS/HCC V24, [...] Description 02/18/2026 10:30 AM EDT Office Visit [facility] Hematology Oncology [address] [place] [phone] Lashanda Mcgill, DO [address] [place] [address] documented as of this encounter Procedures Procedure Name Priority Date/Time Associated Diagnosis Comments COMPLETE BLOOD COUNT Routine 11/02/2024 6:47 AM EST Chronic obstructive pulmonary disease, unspecified (CMS/HCC) BASIC METABOLIC PANEL Routine 11/02/2024 6:47 AM EST Chronic obstructive pulmonary disease, unspecified ([facility]/HCC) documented in this encounter Results * (ABNORMAL) Basic metabolic panel (11/02/2024 6:47 AM EST) Sodium 138 133 - 145 mmol/L LAB CHEMISTRY METHOD 11/02/2024 11:22 AM [facility] Potassium 4.0 3.5 - 5.5 mmol/L LAB CHEMISTRY METHOD 11/02/2024 11:22 AM [facility] Chloride 93(L) 96 - 110 mmol/L LAB CHEMISTRY METHOD 11/02/2024 11:22 AM [facility] CO2 40(H) 21 - 32 mmol/L LAB CHEMISTRY METHOD 11/02/2024 11:22 AM [facility] Anion Gap 5 3 - 11 LAB CHEMISTRY METHOD 11/02/2024 11:22 AM [facility] Glucose 86 70 - 100 mg/dL LAB CHEMISTRY METHOD 11/02/2024 11:22 AM [facility] BUN 12 5 - 25 mg/dL LAB CHEMISTRY METHOD 11/02/2024 11:22 AM [facility] Creatinine 0.86 0.50 - 1.10 mg/dL LAB CHEMISTRY METHOD 11/02/2024 11:22 AM [facility] eGFR 73 >=60 mL/min/1. 73m2 LAB CHEMISTRY METHOD 11/02/2024 11:[address] [facility] Comment:Calculation based on the Chronic Kidney Disease Epidemiology Collaboration (CKD-EPI) equation refit without adjustment for race. BUN/Creatinine Ratio 14.0 LAB CHEMISTRY METHOD 11/02/2024 11:[address] [facility] Calcium 8.9 8.5 - 10.5 mg/dL LAB CHEMISTRY METHOD 11/02/2024 11:22 AM [facility] Blood Venous blood specimen / Unknown Venipuncture / Unknown 11/02/2024 6:47 AM EST 11/02/2024 9:35 AM EST us Janice Núñez MD LAB BLOOD ORDERABLES Final Resul t [facility] [address] [place] [address], * (ABNORMAL) Complete blood count (11/02/2024 6:47 AM EST) WBC 7.4 4.8 - 10.8 K/mcL LAB HEMETOLOGY METHOD 11/02/2024 10:51 AM [facility] RBC 3.60(L) 3.80 - 4.80 M/mcL LAB HEMETOLOGY METHOD 11/02/2024 10:51 AM [facility] Hemoglobin 9.7(L) 11.5 - 16.0 g/dL LAB HEMETOLOGY METHOD 11/02/2024 10:51 AM [facility] Hematocrit 33.4(L) 35.0 - 47.0 % LAB HEMETOLOGY METHOD 11/02/2024 10:51 AM [facility] MCV 93.6 79.0 - 98.0 FL LAB HEMETOLOGY METHOD 11/02/2024 10:51 AM [facility] MCH 27.2 27.0 - 32.0 pcg LAB HEMETOLOGY METHOD 11/02/2024 10:[address] [facility] MCHC 29.0(L) 32.0 - 37.0 g/dL LAB HEMETOLOGY METHOD 11/02/2024 10:51 AM [facility] RDW 14.6 11.0 - 15.0 % LAB HEMETOLOGY METHOD 11/02/2024 10:51 AM [facility] Platelets 509(H) 130 - 400 K/mcL LAB HEMETOLOGY METHOD 11/02/2024 10:51 AM [facility] MPV 9.7 7.0 - 11.0 FL LAB HEMETOLOGY METHOD 11/02/2024 10:51 AM [facility] NRBC 0.0 <1.0 % LAB HEMETOLOGY METHOD 11/02/2024 10:51 AM [facility] NRBC Absolute 0.00 <0.10 K/mcL LAB HEMETOLOGY METHOD 11/02/2024 10:51 AM [facility] Blood Venous blood specimen / Unknown Venipuncture / Unknown 11/02/2024 6:47 AM EST 11/02/2024 9:35 AM EST us Janice Núñez MD LAB BLOOD ORDERABLES Final Resul t [facility] [address] [place] [address], documented in this encounter Visit Diagnoses Diagnosis [...] documented as of this encounter Care Teams Ticker Wirer Relationship Specialty Start Date End Date Kinjal Barron FNP [address] [place] [phone] PCP - General Family Medicine 03/06/25 documented as of this encounter
--- OUTSIDE RECORDS SUMMARY | 2025-11-13 10:21 | XMS_ITS | Encounter Summary ---
Author Organization [facility] Address [address] [place] [address] Care Team Providers Care Healthcare Interpreter Name Role Phone Kinjal Barron NICKEL PLANT OPERATOR Primary Care Provid er Encounter Details Date Type Department Care Team (Late st Contact Info) Description 11/20/2024 Lab Requisition [facility] - Main Lab [address] [place] [address] Janice Núñez MD [address] [place], [place] [phone] Chronic obstructive pulmonary disease, unspecified (CMS/HCC V24, [...] Description 02/18/2026 10:30 AM EDT Office Visit [facility] Hematology Oncology [address] [place] [phone] Lashanda Mcgill, DO [address] [place] [address] documented as of this encounter Procedures Procedure [...] mmol/L LAB CHEMISTRY METHOD 11/20/2024 10:56 AM [facility] Potassium 4.3 3.5 - 5.5 mmol/L LAB CHEMISTRY METHOD 11/20/2024 10:56 AM [facility] Chloride 87(L) 96 - 110 mmol/L LAB CHEMISTRY METHOD 11/20/2024 10:56 AM [facility] CO2 44(HH) 21 - 32 mmol/L LAB CHEMISTRY METHOD 11/20/2024 10:56 AM [facility] Anion Gap 3 3 - 11 LAB CHEMISTRY METHOD 11/20/2024 10:56 AM [facility] Glucose 83 70 - 100 mg/dL LAB CHEMISTRY METHOD 11/20/2024 10:56 AM [facility] BUN 17 5 - 25 mg/dL LAB CHEMISTRY METHOD 11/20/2024 10:56 AM [facility] Creatinine 0.95 0.50 - 1.10 mg/dL LAB CHEMISTRY METHOD 11/20/2024 10:56 AM [facility] eGFR 65 >=60 mL/min/1. 73m2 LAB CHEMISTRY METHOD 11/20/2024 10:56 AM [facility] Comment:Calculation based on the Chronic Kidney Disease Epidemiology Collaboration (CKD-EPI) equation refit without adjustment for race. BUN/Creatinine Ratio 17.9 LAB CHEMISTRY METHOD 11/20/2024 10:56 AM [facility] Calcium 9.2 8.5 - 10.5 mg/dL LAB CHEMISTRY METHOD 11/20/2024 10:56 AM [facility] Blood Venous blood specimen / Unknown Venipuncture / Unknown 11/20/2024 6:24 AM EST 11/20/2024 9:31 AM EST us Janice Núñez MD LAB BLOOD ORDERABLES Final Resul t [facility] [address] [place] [address], * (ABNORMAL) Complete blood count (11/20/2024 6:24 AM EST) WBC 8.4 4.8 - 10.8 K/mcL LAB HEMETOLOGY METHOD 11/20/2024 10:10 AM [facility] RBC 3.70(L) 3.80 - 4.80 M/mcL LAB HEMETOLOGY METHOD 11/20/2024 10:10 AM [facility] Hemoglobin 9.5(L) 11.5 - 16.0 g/dL LAB HEMETOLOGY METHOD 11/20/2024 10:10 AM [facility] Hematocrit 34.1(L) 35.0 - 47.0 % LAB HEMETOLOGY METHOD 11/20/2024 10:10 AM [facility] MCV 93.4 79.0 - 98.0 FL LAB HEMETOLOGY METHOD 11/20/2024 10:10 AM [facility] MCH 26.0(L) 27.0 - 32.0 pcg LAB HEMETOLOGY METHOD 11/20/2024 10:10 AM EST [facility] MCHC 27.9(L) 32.0 - 37.0 g/dL LAB HEMETOLOGY METHOD 11/20/2024 10:10 AM [facility] RDW 14.9 11.0 - 15.0 % LAB HEMETOLOGY METHOD 11/20/2024 10:10 AM EST [facility] Platelets 512(H) 130 - 400 K/mcL LAB HEMETOLOGY METHOD 11/20/2024 10:10 AM [facility] MPV 9.8 7.0 - 11.0 FL LAB HEMETOLOGY METHOD 11/20/2024 10:10 AM [facility] NRBC 0.0 <1.0 % LAB HEMETOLOGY METHOD 11/20/2024 10:10 AM [facility] NRBC Absolute 0.00 <0.10 K/mcL LAB HEMETOLOGY METHOD 11/20/2024 10:10 AM [facility] Blood Venous blood specimen / Unknown Venipuncture / Unknown 11/20/2024 6:24 AM EST 11/20/2024 9:31 AM EST us Janice Núñez MD LAB BLOOD ORDERABLES Final Resul t [facility] [address] [place] [address], documented in this encounter Visit Diagnoses Diagnosis [...] documented as of this encounter Care Teams Healthcare Interpreter Relationship Specialty Start Date End Date Kinjal Barron FNP [address] [place] [phone] PCP - General Family Medicine 03/06/25 documented as of this encounter
--- OUTSIDE RECORDS SUMMARY | 2025-11-13 10:21 | XMS_ITS | Encounter Summary ---
Author Organization [facility] Address [address] [place] [address] Care Team Providers Care Spiritual Counselor Name Role Phone Kinjal Barron RN TRANSITIONAL CARE Primary Care Provid er Encounter Details Date Type Department Care Team (Late st Contact Info) Description 11/03/2024 Lab Requisition [facility] - Main Lab [address] [place] [address] Janice Núñez MD [address] [place], [place] [phone] Chronic obstructive pulmonary disease, unspecified (CMS/HCC V24, [...] Visit [facility] Hematology Oncology [address] [place] [phone] Lashanda Mcgill, DO [address] [place] [address] documented as of this encounter Procedures Procedure Name Priority Date/Time Associated Diagnosis Comments COMPLETE BLOOD COUNT Routine 11/05/2024 8:13 AM EST Chronic obstructive pulmonary disease, unspecified (CMS/HCC) BASIC METABOLIC PANEL Routine 11/05/2024 8:13 AM EST Chronic obstructive pulmonary disease, unspecified ([facility]/HCC) documented in this encounter Results * [...] Resul t [facility] [address] [place] [address], * (ABNORMAL) Complete blood count (11/05/2024 8:13 [...] 11:00 AM [facility] NRBC Absolute 0.00 <0.10 K/mcL LAB HEMETOLOGY METHOD 11/05/2024 11:00 AM [facility] Blood Venous blood specimen / Unknown Venipuncture / Unknown 11/05/2024 8:13 AM EST 11/05/2024 10:37 AM EST us Janice Núñez MD LAB BLOOD ORDERABLES Final Resul t [facility] [address] [place] [address], documented in this encounter Visit Diagnoses Diagnosis [...] documented as of this encounter Care Teams Spiritual Counselor Relationship Specialty Start Date End Date Kinjal Barron FNP [address] [place] [phone] PCP - General Family Medicine 03/06/25 documented as of this encounter
--- OUTSIDE RECORDS SUMMARY | 2025-11-13 10:22 | XMS_ITS | Encounter Summary ---
Author Organization [facility] Address [address] [place] [address] Care Team Providers Care Beck Tender Name Role Phone Kinjal Barron EXHAUSTER Primary Care Provid er Encounter Details Date Type Department Care Team (Late st Contact Info) Description 10/15/2024 Lab Requisition [facility] - Main Lab [address] [place] [address] Alley San NP [address] [facility] [place] [address] Chronic obstructive pulmonary disease, unspecified (CMS/HCC V24, [...] Description 02/18/2026 10:30 AM EDT Office Visit [facility] Hematology Oncology [address] [place] [address] Lashanda Mcgill, DO [address] [place] [address] documented as of this encounter Procedures Procedure Name Priority Date/Time Associated Diagnosis Comments COMPLETE BLOOD COUNT Routine 10/15/2024 8:35 AM EST Chronic obstructive pulmonary disease, unspecified (CMS/HCC) BASIC METABOLIC PANEL Routine 10/15/2024 8:35 AM EST Chronic obstructive pulmonary disease, unspecified ([facility]/HCC) documented in this encounter Results * (ABNORMAL) Basic metabolic panel (10/15/2024 8:35 AM EST) Sodium 140 133 - 145 mmol/L LAB CHEMISTRY METHOD 10/15/2024 1:16 PM [facility] Potassium 3.8 3.5 - 5.5 mmol/L LAB CHEMISTRY METHOD 10/15/2024 1:16 PM [facility] Chloride 90(L) 96 - 110 mmol/L LAB CHEMISTRY METHOD 10/15/2024 1:16 PM [facility] CO2 40(H) 21 - 32 mmol/L LAB CHEMISTRY METHOD 10/15/2024 1:16 PM [facility] Anion Gap 10 3 - 11 LAB CHEMISTRY METHOD 10/15/2024 1:16 PM [facility] Glucose 81 70 - 100 mg/dL LAB CHEMISTRY METHOD 10/15/2024 1:16 PM [facility] BUN 15 5 - 25 mg/dL LAB CHEMISTRY METHOD 10/15/2024 1:16 PM [facility] Creatinine 1.00 0.50 - 1.10 mg/dL LAB CHEMISTRY METHOD 10/15/2024 1:16 PM [facility] eGFR 61 >=60 mL/min/1. 73m2 LAB CHEMISTRY METHOD 10/15/2024 1:16 PM EST [facility] Comment:Calculation based on the Chronic Kidney Disease Epidemiology Collaboration (CKD-EPI) equation refit without adjustment for race. BUN/Creatinine Ratio 15.0 LAB CHEMISTRY METHOD 10/15/2024 1:16 PM EST [facility] Calcium 9.6 8.5 - 10.5 mg/dL LAB CHEMISTRY METHOD 10/15/2024 1:16 PM [facility] Blood Venous blood specimen / Unknown Venipuncture / Unknown 10/15/2024 8:35 AM EST 10/15/2024 11:13 AM EST Alley San NP LAB BLOOD ORDERABLES Final Re sult [facility] [address] [place] [address], * (ABNORMAL) Complete blood count (10/15/2024 8:35 AM EST) WBC 8.3 4.8 - 10.8 K/mcL LAB HEMETOLOGY METHOD 10/15/2024 12:51 PM [facility] RBC 3.80 3.80 - 4.80 M/mcL LAB HEMETOLOGY METHOD 10/15/2024 12:51 PM [facility] Hemoglobin 10.7(L) 11.5 - 16.0 g/dL LAB HEMETOLOGY METHOD 10/15/2024 12:51 PM [facility] Hematocrit 37.8 35.0 - 47.0 % LAB HEMETOLOGY METHOD 10/15/2024 12:51 PM [facility] MCV 98.4(H) 79.0 - 98.0 FL LAB HEMETOLOGY METHOD 10/15/2024 12:51 PM [facility] MCH 27.9 27.0 - 32.0 pcg LAB HEMETOLOGY METHOD 10/15/2024 12:51 PM EST [facility] MCHC 28.3(L) 32.0 - 37.0 g/dL LAB HEMETOLOGY METHOD 10/15/2024 12:51 PM [facility] RDW 15.2(H) 11.0 - 15.0 % LAB HEMETOLOGY METHOD 10/15/2024 12:51 PM [facility] Platelets 474(H) 130 - 400 K/mcL LAB HEMETOLOGY METHOD 10/15/2024 12:51 PM [facility] MPV 9.6 7.0 - 11.0 FL LAB HEMETOLOGY METHOD 10/15/2024 12:51 PM [facility] NRBC 0.0 <1.0 % LAB HEMETOLOGY METHOD 10/15/2024 12:51 PM [facility] NRBC Absolute 0.00 <0.10 K/mcL LAB HEMETOLOGY METHOD 10/15/2024 12:51 PM [facility] Blood Venous blood specimen / Unknown Venipuncture / Unknown 10/15/2024 8:35 AM EST 10/15/2024 11:13 AM EST Alley San BODY TECHNICIAN LAB BLOOD ORDERABLES Final Re sult [facility] [address] [place] [address], documented in this encounter Visit Diagnoses Diagnosis [...] documented as of this encounter Care Teams Beck Tender Relationship Specialty Start Date End Date Kinjal Barron FNP [address] [place] [phone] PCP - General Family Medicine 03/06/25 documented as of this encounter
--- OUTSIDE RECORDS SUMMARY | 2025-11-13 10:22 | XMS_ITS | Encounter Summary ---
Author Organization [facility] Address [address] [place] [address] Care Team Providers Care Small Business Director Name Role Phone Kinjal Barron PILE DRIVING NOZZLEMAN Primary Care Provid er Encounter Details Date Type Department Care Team (Late st Contact Info) Description 10/19/2024 Lab Requisition [facility] - Main Lab [address] [place] [address] Janice Núñez MD [address] [place], [place] [phone] Chronic obstructive pulmonary disease, unspecified (CMS/HCC V24, [...] [facility] Hematology Oncology [address] [place] [phone] Lashanda Mcgill, DO [address] [place] [address] documented as of this encounter Procedures Procedure Name Priority Date/Time Associated Diagnosis Comments COMPLETE BLOOD COUNT Routine 10/22/2024 8:17 AM EST Chronic obstructive pulmonary disease, unspecified (CMS/HCC) BASIC METABOLIC PANEL Routine 10/22/2024 8:17 AM EST Chronic obstructive pulmonary disease, unspecified ([facility]/HCC) documented in this encounter Results * (ABNORMAL) Basic metabolic panel (10/22/2024 8:17 AM EST) Sodium 138 133 - 145 mmol/L LAB CHEMISTRY METHOD 10/22/2024 4:[address] [facility] Potassium 3.8 3.5 - 5.5 mmol/L LAB CHEMISTRY METHOD 10/22/2024 4:[address] [facility] Chloride 94(L) 96 - 110 mmol/L LAB CHEMISTRY METHOD 10/22/2024 4:[address] [facility] CO2 41(HH) 21 - 32 mmol/L LAB CHEMISTRY METHOD 10/22/2024 4:[address] [facility] Anion Gap 3 3 - 11 LAB CHEMISTRY METHOD 10/22/2024 4:[address] [facility] Glucose 82 70 - 100 mg/dL LAB CHEMISTRY METHOD 10/22/2024 4:[address] [facility] BUN 12 5 - 25 mg/dL LAB CHEMISTRY METHOD 10/22/2024 4:[address] [facility] Creatinine 0.94 0.50 - 1.10 mg/dL LAB CHEMISTRY METHOD 10/22/2024 4:[address] [facility] eGFR 65 >=60 mL/min/1. 73m2 LAB CHEMISTRY METHOD 10/22/2024 4:[address] [facility] Comment:Calculation based on the Chronic Kidney Disease Epidemiology Collaboration (CKD-EPI) equation refit without adjustment for race. BUN/Creatinine Ratio 12.8 LAB CHEMISTRY METHOD 10/22/2024 4:[address] [facility] Calcium 9.2 8.5 - 10.5 mg/dL LAB CHEMISTRY METHOD 10/22/2024 4:[address] [facility] Blood Venous blood specimen / Unknown Venipuncture / Unknown 10/22/2024 8:17 AM EST 10/22/2024 11:52 AM EST us Janice Núñez MD LAB BLOOD ORDERABLES Final Resul t [facility] [address] [place] [address], * (ABNORMAL) Complete blood count (10/22/2024 8:17 AM EST) WBC 5.5 4.8 - 10.8 K/mcL LAB HEMETOLOGY METHOD 10/22/2024 12:[address] [facility] RBC 3.40(L) 3.80 - 4.80 M/mcL LAB HEMETOLOGY METHOD 10/22/2024 12:[address] [facility] Hemoglobin 9.4(L) 11.5 - 16.0 g/dL LAB HEMETOLOGY METHOD 10/22/2024 12:[address] [facility] Hematocrit 32.9(L) 35.0 - 47.0 % LAB HEMETOLOGY METHOD 10/22/2024 12:[address] [facility] MCV 96.8 79.0 - 98.0 FL LAB HEMETOLOGY METHOD 10/22/2024 12:[address] [facility] MCH 27.6 27.0 - 32.0 pcg LAB HEMETOLOGY METHOD 10/22/2024 12:[address] [facility] MCHC 28.6(L) 32.0 - 37.0 g/dL LAB HEMETOLOGY METHOD 10/22/2024 12:[address] [facility] RDW 15.0 11.0 - 15.0 % LAB HEMETOLOGY METHOD 10/22/2024 12:[address] [facility] Platelets 417(H) 130 - 400 K/mcL LAB HEMETOLOGY METHOD 10/22/2024 12:[address] [facility] MPV 9.8 7.0 - 11.0 FL LAB HEMETOLOGY METHOD 10/22/2024 12:[address] [facility] NRBC 0.0 <1.0 % LAB HEMETOLOGY METHOD 10/22/2024 12:[address] [facility] NRBC Absolute 0.00 <0.10 K/mcL LAB HEMETOLOGY METHOD 10/22/2024 12:[address] [facility] Blood Venous blood specimen / Unknown Venipuncture / Unknown 10/22/2024 8:17 AM EST 10/22/2024 11:52 AM EST us Janice Núñez MD LAB BLOOD ORDERABLES Final Resul t [facility] [address] [place] [address], documented in this encounter Visit Diagnoses Diagnosis [...] documented as of this encounter Care Teams Small Business Director Relationship Specialty Start Date End Date Kinjal Barron FNP [address] [place] [phone] PCP - General Family Medicine 03/06/25 documented as of this encounter
--- OUTSIDE RECORDS SUMMARY | 2025-11-13 10:22 | XMS_ITS | Encounter Summary ---
Author Organization [facility] Address [address] [place] [address] Care Team Providers Care Coach Wirer Name Role Phone Kinjal Barron BUSINESS CONTINUITY PLANNER Primary Care Provid er Encounter Details Date Type Department Care Team (Late st Contact Info) Description 10/27/2024 Lab Requisition [facility] - Main Lab [address] [place] [address] Janice Núñez MD [address] [place], [place] [phone] Chronic obstructive pulmonary disease, unspecified (CMS/HCC V24, [...] 02/18/2026 10:30 AM EDT Office Visit [facility] Hematology Oncology [address] [place] [phone] Lashanda Mcgill, DO [address] [place] [address] documented as of this encounter Procedures Procedure Name Priority Date/Time Associated Diagnosis Comments COMPLETE BLOOD COUNT Routine 10/29/2024 8:00 AM EST Chronic obstructive pulmonary disease, unspecified (CMS/HCC) BASIC METABOLIC PANEL Routine 10/29/2024 8:00 AM EST Chronic obstructive pulmonary disease, unspecified ([facility]/HCC) documented in this encounter Results * (ABNORMAL) Basic metabolic panel (10/29/2024 8:00 AM EST) Sodium 138 133 - 145 mmol/L LAB CHEMISTRY METHOD 10/29/2024 2:01 PM [facility] Potassium 3.6 3.5 - 5.5 mmol/L LAB CHEMISTRY METHOD 10/29/2024 2:01 PM [facility] Chloride 91(L) 96 - 110 mmol/L LAB CHEMISTRY METHOD 10/29/2024 2:01 PM [facility] CO2 40(H) 21 - 32 mmol/L LAB CHEMISTRY METHOD 10/29/2024 2:01 PM [facility] Anion Gap 7 3 - 11 LAB CHEMISTRY METHOD 10/29/2024 2:01 PM [facility] Glucose 86 70 - 100 mg/dL LAB CHEMISTRY METHOD 10/29/2024 2:01 PM [facility] BUN 15 5 - 25 mg/dL LAB CHEMISTRY METHOD 10/29/2024 2:01 PM [facility] Creatinine 0.89 0.50 - 1.10 mg/dL LAB CHEMISTRY METHOD 10/29/2024 2:01 PM [facility] eGFR 70 >=60 mL/min/1. 73m2 LAB CHEMISTRY METHOD 10/29/2024 2:01 PM [facility] Comment:Calculation based on the Chronic Kidney Disease Epidemiology Collaboration (CKD-EPI) equation refit without adjustment for race. BUN/Creatinine Ratio 16.9 LAB CHEMISTRY METHOD 10/29/2024 2:01 PM [facility] Calcium 9.3 8.5 - 10.5 mg/dL LAB CHEMISTRY METHOD 10/29/2024 2:01 PM [facility] Blood Venous blood specimen / Unknown Venipuncture / Unknown 10/29/2024 8:00 AM EST 10/29/2024 11:30 AM EST us Janice Núñez MD LAB BLOOD ORDERABLES Final Resul t [facility] [address] [place] [address], * (ABNORMAL) Complete blood count (10/29/2024 8:00 AM EST) WBC 6.3 4.8 - 10.8 K/mcL LAB HEMETOLOGY METHOD 10/29/2024 12:10 PM [facility] RBC 3.70(L) 3.80 - 4.80 M/mcL LAB HEMETOLOGY METHOD 10/29/2024 12:10 PM [facility] Hemoglobin 10.1(L) 11.5 - 16.0 g/dL LAB HEMETOLOGY METHOD 10/29/2024 12:10 PM [facility] Hematocrit 35.2 35.0 - 47.0 % LAB HEMETOLOGY METHOD 10/29/2024 12:10 PM [facility] MCV 94.1 79.0 - 98.0 FL LAB HEMETOLOGY METHOD 10/29/2024 12:10 PM [facility] MCH 27.0 27.0 - 32.0 pcg LAB HEMETOLOGY METHOD 10/29/2024 12:10 PM EST [facility] MCHC 28.7(L) 32.0 - 37.0 g/dL LAB HEMETOLOGY METHOD 10/29/2024 12:10 PM [facility] RDW 14.5 11.0 - 15.0 % LAB HEMETOLOGY METHOD 10/29/2024 12:10 PM [facility] Platelets 504(H) 130 - 400 K/mcL LAB HEMETOLOGY METHOD 10/29/2024 12:10 PM [facility] MPV 9.3 7.0 - 11.0 FL LAB HEMETOLOGY METHOD 10/29/2024 12:10 PM [facility] NRBC 0.0 <1.0 % LAB HEMETOLOGY METHOD 10/29/2024 12:10 PM [facility] NRBC Absolute 0.00 <0.10 K/mcL LAB HEMETOLOGY METHOD 10/29/2024 12:10 PM [facility] Blood Venous blood specimen / Unknown Venipuncture / Unknown 10/29/2024 8:00 AM EST 10/29/2024 11:30 AM EST us Janice Núñez MD LAB BLOOD ORDERABLES Final Resul t [facility] [address] [place] [address], documented in this encounter Visit Diagnoses Diagnosis [...] documented as of this encounter Care Teams Coach Wirer Relationship Specialty Start Date End Date Kinjal Barron FNP [address] [place] [phone] PCP - General Family Medicine 03/06/25 documented as of this encounter
--- OUTSIDE RECORDS SUMMARY | 2025-11-13 10:22 | XMS_ITS | Encounter Summary ---
Author Organization [facility] Address [address] [place] [address] Care Team Providers Care Mining Plant Operator Name Role Phone Kinjal Barron ORGANIC CHEMIST Primary Care Provid er Encounter Details Date Type Department Care Team (Late st Contact Info) Description 10/21/2025 Lab Requisition [facility] - Main Lab [address] [place] [address] Janice Núñez MD [address] [place], [place] [phone] Anemia, unspecified; Essential (primary) hypertension; Malignant neoplasm [...] [facility] Hematology Oncology [address] [place] [phone] Lashanda Mcgill DO [address] [place] [address] documented as of this encounter Procedures Procedure [...] 18.8 >=5.4 ng/ml 10/21/2025 11:30 AM EST [facility] Blood Venous blood specimen / Unknown Venipuncture / Unknown 10/21/2025 8:45 AM EST 10/21/2025 10:33 AM EST [facility] - 10/21/2025 11:30 AM EST Over the counter supplements containing high doses of biotin may interfere with this assay. If interference is suspected, patients shoud be retested after refraining from biotin supplements for 72 hours. us Janice Núñez MD LAB BLOOD ORDERABLES Final Resul t Performing Organization Address City/[facility]/ZIP Co de Phone Number [facility] [address] [place] [address], [place] [phone] * Vitamin B12 (10/21/2025 8:45 AM EST) [facility] Vitamin B-12 631 211 - 911 pcg/mL 10/21/2025 11:30 AM EST [facility] Blood Venous blood specimen / Unknown Venipuncture / Unknown 10/21/2025 8:45 AM EST 10/21/2025 10:33 AM EST us Janice Núñez MD LAB BLOOD ORDERABLES Final Resul t Performing Organization Address [facility] Co de Phone Number [facility] [address] [place] [address], [place] [phone] * Ferritin (10/21/2025 8:45 AM EST) [facility] Ferritin 11 7 - 271 ng/mL 10/21/2025 11:30 AM EST [facility] Blood Venous blood specimen / Unknown Venipuncture / Unknown 10/21/2025 8:45 AM EST 10/21/2025 10:33 AM EST us Janice Núñez MD LAB BLOOD ORDERABLES Final Resul t Performing Organization Address [facility]/ZIP Co de Phone Number [facility] [address] [place] [address], [place] [phone] * (ABNORMAL) Iron and TIBC (10/21/2025 8:45 AM EST) [facility] Iron 10(L) 40 - 150 mcg/dL 10/21/2025 11:32 AM EST [facility] TIBC 392 250 - 450 mcg/dL 10/21/2025 11:32 AM [facility] Iron Saturation 3(L) 15 - 50 % 11:32 AM [facility] Blood Venous blood specimen / Unknown Venipuncture / Unknown 10/21/2025 8:45 AM EST 10/21/2025 10:33 AM EST us Janice Núñez MD LAB BLOOD ORDERABLES Final Resul t [facility] [address] [place] [address], * (ABNORMAL) Basic metabolic panel (10/21/2025 8:45 AM EST) Sodium 137 133 - 145 mmol/L 10/21/2025 11:34 AM [facility] Potassium 3.8 3.5 - 5.5 mmol/L 10/21/2025 11:34 AM [facility] Chloride 90(L) 96 - 110 mmol/L 10/21/2025 11:34 AM [facility] CO2 >40(HH) 21 - 32 mmol/L 10/21/2025 11:34 AM [facility] Anion Gap <7 3 - 11 10/21/2025 11:34 AM [facility] Glucose 120(H) 70 - 100 mg/dL 10/21/2025 11:34 AM [facility] BUN 11 5 - 25 mg/dL 10/21/2025 11:34 AM [facility] Creatinine 0.84 0.50 - 1.10 mg/dL 10/21/2025 11:34 AM [facility] eGFR 74 >=60 mL/min/1. 73m2 10/21/2025 11:34 AM [facility] Comment:Calculation based on the Chronic Kidney Disease Epidemiology Collaboration (CKD-EPI) equation refit without adjustment for race. BUN/Creatinine Ratio 13.1 10/21/2025 11:34 AM [facility] Calcium 8.3(L) 8.5 - 10.5 mg/dL 10/21/2025 11:34 AM [facility] Blood Venous blood specimen / Unknown Venipuncture / Unknown 10/21/2025 8:45 AM EST 10/21/2025 10:33 AM EST us Janice Núñez MD LAB BLOOD ORDERABLES Final Resul t [facility] [address] [place] [address], [place] [phone] * (ABNORMAL) Complete blood count (10/21/2025 8:45 AM EST) WBC 7.8 4.8 - 10.8 K/mcL LAB HEMETOLOGY METHOD 10/21/2025 10:58 AM [facility] RBC 3.10(L) 3.80 - 4.80 M/mcL LAB HEMETOLOGY METHOD 10/21/2025 10:58 AM [facility] Hemoglobin 9.4(L) 11.5 - 16.0 g/dL LAB HEMETOLOGY METHOD 10/21/2025 10:58 AM [facility] Hematocrit 30.0(L) 35.0 - 47.0 % LAB HEMETOLOGY METHOD 10/21/2025 10:58 AM [facility] MCV 97.4 79.0 - 98.0 FL LAB HEMETOLOGY METHOD 10/21/2025 10:58 AM [facility] MCH 30.5 27.0 - 32.0 pcg LAB HEMETOLOGY METHOD 10/21/2025 10:58 AM [facility] MCHC 31.3(L) 32.0 - 37.0 g/dL LAB HEMETOLOGY METHOD 10/21/2025 10:58 AM EST [facility] RDW 15.1(H) 11.0 - 15.0 % LAB HEMETOLOGY METHOD 10/21/2025 10:58 AM [facility] Platelets 446(H) 130 - 400 K/mcL LAB HEMETOLOGY METHOD 10/21/2025 10:58 AM EST [facility] MPV 9.4 7.0 - 11.0 FL LAB HEMETOLOGY METHOD 10/21/2025 10:58 AM EST [facility] NRBC 0.0 <1.0 % LAB HEMETOLOGY METHOD 10/21/2025 10:58 AM [facility] NRBC Absolute 0.00 <0.10 K/mcL LAB HEMETOLOGY METHOD 10/21/2025 10:58 AM [facility] Blood Venous blood specimen / Unknown Venipuncture / Unknown 10/21/2025 8:45 AM EST 10/21/2025 10:33 AM EST Janice Núñez MD LAB BLOOD ORDERABLES Final Resul t [facility] [address] [place] [address], documented in this encounter Visit Diagnoses Diagnosis Anemia, unspecified Essential (primary) hypertension Unspecified essential hypertension Malignant neoplasm of unspecified part of unspecified bronchus or lung (CMS/HCC V24, CMS/HCC V28) documented in this encounter Additional Health Concerns Assessment Noted Time PHQ-9 Depression Total Score: 1 07/19/20 25 5:04 PM EDT documented as of this encounter Care Teams Mining Plant Operator Relationship Specialty Start Date End Date Kinjal Barron FNP [address] [place] [phone] PCP - General Family Medicine 03/06/25 documented as of this encounter
--- OUTSIDE RECORDS SUMMARY | 2025-11-13 10:22 | XMS_ITS | Encounter Summary ---
Author Organization [facility] Address [address] [place] [address] Care Team Providers Care Scrap Sorter Name Role Phone Kinjal Barron COMMERCIAL RELIEF DRIVER Primary Care Provid er Encounter Details Date Type Department Care Team (Late st Contact Info) Description 11/05/2025 Lab Requisition [facility] - Main Lab [address] [place] [address] Janice Núñez MD [address] [place], [place] [phone] Malignant neoplasm of unspecified part of left [...] 02/18/2026 10:30 AM EDT Office Visit [facility] Hematology Oncology [address] [place] [phone] Lashanda Mcgill, [address] [place] [address] documented as of this encounter Procedures Procedure [...] 133 - 145 mmol/L 11/06/2025 12:[address] [facility] Potassium 3.5 3.5 - 5.5 mmol/L 11/06/2025 12:[address] [facility] Chloride 91(L) 96 - 110 mmol/L 11/06/2025 12:[address] [facility] CO2 >40(HH) 21 - 32 mmol/L 11/06/2025 12:[address] [facility] Anion Gap <8 3 - 11 11/06/2025 12:[address] [facility] Glucose 79 70 - 100 mg/dL 11/06/2025 12:[address] [facility] BUN 12 5 - 25 mg/dL 11/06/2025 12:[address] [facility] Creatinine 0.97 0.50 - 1.10 mg/dL 11/06/2025 12:[address] [facility] eGFR 63 >=60 mL/min/1. 73m2 11/06/2025 12:[address] [facility] Comment:Calculation based on the Chronic Kidney Disease Epidemiology Collaboration (CKD-EPI) equation refit without adjustment for race. BUN/Creatinine Ratio 12.4 11/06/2025 12:[address] [facility] Calcium 8.8 8.5 - 10.5 mg/dL 11/06/2025 12:[address] [facility] Blood Venous blood specimen / Unknown Venipuncture / Unknown 11/06/2025 7:41 AM EST 11/06/2025 10:49 AM EST us Janice Núñez MD LAB BLOOD ORDERABLES Final Resul t [facility] [address] [place] [address], * (ABNORMAL) Complete blood count (11/06/2025 7:41 AM EST) WBC 7.5 4.8 - 10.8 K/mcL LAB HEMETOLOGY METHOD 11/06/2025 11:[address] [facility] RBC 3.00(L) 3.80 - 4.80 M/mcL LAB HEMETOLOGY METHOD 11/06/2025 11:[address] [facility] Hemoglobin 7.8(L) 11.5 - 16.0 g/dL LAB HEMETOLOGY METHOD 11/06/2025 11:[address] [facility] Hematocrit 27.6(L) 35.0 - 47.0 % LAB HEMETOLOGY METHOD 11/06/2025 11:[address] [facility] MCV 92.3 79.0 - 98.0 FL LAB HEMETOLOGY METHOD 11/06/2025 11:[address] [facility] MCH 26.1(L) 27.0 - 32.0 pcg LAB HEMETOLOGY METHOD 11/06/2025 11:[address] [facility] MCHC 28.3(L) 32.0 - 37.0 g/dL LAB HEMETOLOGY METHOD 11/06/2025 11:[address] [facility] RDW 15.9(H) 11.0 - 15.0 % LAB HEMETOLOGY METHOD 11/06/2025 11:10 AM EST [facility] Platelets 465(H) 130 - 400 K/mcL LAB HEMETOLOGY METHOD 11/06/2025 11:10 AM EST [facility] MPV 9.8 7.0 - 11.0 FL LAB HEMETOLOGY METHOD 11/06/2025 11:10 AM EST [facility] NRBC 0.0 <1.0 % LAB HEMETOLOGY METHOD 11/06/2025 11:10 AM EST [facility] NRBC Absolute 0.00 <0.10 K/mcL LAB HEMETOLOGY METHOD 11/06/2025 11:[address] [facility] Blood Venous blood specimen / Unknown Venipuncture / Unknown 11/06/2025 7:41 AM EST 11/06/2025 10:49 AM EST us Janice Núñez MD LAB BLOOD ORDERABLES Final Resul t [facility] [address] [place] [address], documented in this encounter Visit Diagnoses Diagnosis Malignant neoplasm of unspecified part of left bronchus or lung (CMS/HCC V24, CMS/HCC V28) Chronic respiratory failure with hypercapnia (CMS/HCC V24, CMS/HCC V28) documented in this encounter Additional Health Concerns Assessment Noted Time PHQ-9 Depression Total Score: 1 07/19/20 25 5:04 PM EDT documented as of this encounter Care Teams Scrap Sorter Relationship Specialty Start Date End Date Kinjal Barron FNP [address] [place] [phone] PCP - General Family Medicine 03/06/25 documented as of this encounter
--- OUTSIDE RECORDS SUMMARY | 2025-11-13 10:22 | XMS_ITS | Encounter Summary ---
Author Organization [facility] Address [address] [place] [address] Care Team Providers Care Enterprise Sales Person Name Role Phone Kinjal Barron STATION INSTALLATION SUPERVISOR Primary Care Provid er Encounter Details Date Type Department Care Team (Late st Contact Info) Description 10/16/2025 Lab Requisition [facility] - Main Lab [address] [facility] [address] [place] [address] Janice Núñez MD [address] [place], [place] [phone] Dysuria Social History Tobacco Use Types Packs/Day [...] [facility] Hematology Oncology [address] [place] [phone] Lashanda Mcgill, DO [address] [place] [address] documented as of this encounter Procedures Procedure Name Priority Date/Time Associated Diagnosis Comments URINALYSIS WITH REFLEX MICROSCOPIC Routine 10/16/2025 12:00 AM EST Dysuria URINALYSIS WITH REFLEX MICROSCOPIC Routine 10/16/2025 12:00 AM EST Dysuria CULTURE URINE Routine 10/16/2025 12:00 AM EST Dysuria documented in this encounter Results * (ABNORMAL) Urinalysis with reflex microscopic (10/16/2025 12:00 AM EST) Specific [place] Urine 1.015 1.003 - 1.030 LAB URINALYSIS - AUTOMATED METHOD 10/16/2025 11:46 AM [facility] pH, Urine 7.5 5.0 - 8.0 pH LAB URINALYSIS - AUTOMATED METHOD 10/16/2025 11:46 AM [facility] Leukocytes, Urine Large(A) Negative LAB URINALYSIS - AUTOMATED METHOD 10/16/2025 11:46 AM [facility] Nitrite, Urine Negative Negative LAB URINALYSIS - AUTOMATED METHOD 10/16/2025 11:46 AM [facility] Protein, Urine 100(A) <=Trace mg/dL LAB URINALYSIS - AUTOMATED METHOD 10/16/2025 11:46 AM [facility] Glucose, Urine Negative Negative mg/dL LAB URINALYSIS - AUTOMATED METHOD 10/16/2025 11:46 AM [facility] Ketones, Urine Negative Negative mg/dL LAB URINALYSIS - AUTOMATED METHOD 10/16/2025 11:46 AM [facility] Urobilinogen , Urine 0.2 0.2 - 1.0 mg/dL LAB URINALYSIS - AUTOMATED METHOD 10/16/2025 11:46 AM [facility] Bilirubin, Urine Negative Negative LAB URINALYSIS - AUTOMATED METHOD 10/16/2025 11:46 AM [facility] Blood, Urine Moderate(A) Negative LAB URINALYSIS - AUTOMATED METHOD 10/16/2025 11:46 AM [facility] RBC, Urine 20(H) 0 - 4 /HPF 10/16/2025 11:46 AM [facility] WBC, Urine 30(H) 0 - 4 /HPF 10/16/2025 11:46 AM EST [facility] Squamous Epithelial, Urine 2 0 - 60 /LPF 10/16/2025 11:46 AM EST [facility] Non-Squamous Epithelial, Urine 2-5 Transitional epithelial cells. /LPF 10/16/2025 11:46 AM EST [facility] Bacteria, Urine Moderate(A) Negative /HPF 10/16/2025 11:46 AM EST [facility] Urine Urine specimen from urethra / Unknown Non-blood Collection / Unknown 10/16/2025 10/16/2025 10:00 AM EST Janice Núñez MD LAB URINE ORDERABLES Final Resul t [facility] [address] [place] [address], * (ABNORMAL) Culture urine (10/16/2025 12:00 AM EST) Culture, Urine 50,000-100,000 CFU/mL Klebsiella aerogenes(A) SERGIO 10/18/2025 10:36 AM EST [facility] Comment: This is an edited [...] MICROBIOLOGY - GENERAL ORDER KANE Final Result [facility] [address] [place] [address], documented in this encounter Visit Diagnoses Diagnosis Dysuria documented in this encounter Additional Health Concerns Assessment Noted Time PHQ-9 Depression Total Score: 1 07/19/20 25 5:04 PM EDT documented as of this encounter Care Teams Enterprise Sales Person Relationship Specialty Start Date End Date Kinjal Barron FNP [address] [place] [phone] PCP - General Family Medicine 03/06/25 documented as of this encounter
--- OUTSIDE RECORDS SUMMARY | 2025-11-13 10:22 | XMS_ITS | Encounter Summary ---
Author Organization [facility] Address [address] [place] [address] Care Team Providers Care Soldering Machine Operator Name Role Phone Kinjal Barron DEPUTY CHIEF MAGISTRATE Primary Care Provid er Encounter Details Date Type Department Care Team (Late st Contact Info) Description 10/29/2025 Lab Requisition [facility] - Main Lab [address] [place] [address] Janice Núñez MD [address] [place], [place] [phone] Malignant neoplasm of unspecified part of left [...] Visit [facility] Hematology Oncology [address] [place] [phone] Lashanda Mcgill, [address] [place] [address] documented as of this encounter Procedures Procedure [...] 133 - 145 mmol/L 10/30/2025 11:53 AM [facility] Potassium 3.6 3.5 - 5.5 mmol/L 10/30/2025 11:53 AM [facility] Chloride 92(L) 96 - 110 mmol/L 10/30/2025 11:53 AM [facility] CO2 >40(HH) 21 - 32 mmol/L 10/30/2025 11:53 AM [facility] Anion Gap <9 3 - 11 10/30/2025 11:53 AM [facility] Glucose 72 70 - 100 mg/dL 10/30/2025 11:53 AM [facility] BUN 19 5 - 25 mg/dL 10/30/2025 11:53 AM [facility] Creatinine 0.88 0.50 - 1.10 mg/dL 10/30/2025 11:53 AM [facility] eGFR 70 >=60 mL/min/1. 73m2 10/30/2025 11:53 AM [facility] Comment:Calculation based on the Chronic Kidney Disease Epidemiology Collaboration (CKD-EPI) equation refit without adjustment for race. BUN/Creatinine Ratio 21.6 10/30/2025 11:53 AM [facility] Calcium 8.9 8.5 - 10.5 mg/dL 10/30/2025 11:53 AM [facility] Blood Venous blood specimen / Unknown Venipuncture / Unknown 10/30/2025 7:18 AM EST 10/30/2025 10:32 AM EST us Janice Núñez MD LAB BLOOD ORDERABLES Final Resul t [facility] [address] [place] [address], * (ABNORMAL) Complete blood count (10/30/2025 7:18 AM EST) WBC 8.5 4.8 - 10.8 K/mcL LAB HEMETOLOGY METHOD 10/30/2025 10:54 AM [facility] RBC 3.00(L) 3.80 - 4.80 M/mcL LAB HEMETOLOGY METHOD 10/30/2025 10:54 AM [facility] Hemoglobin 7.9(L) 11.5 - 16.0 g/dL LAB HEMETOLOGY METHOD 10/30/2025 10:54 AM [facility] Hematocrit 27.5(L) 35.0 - 47.0 % LAB HEMETOLOGY METHOD 10/30/2025 10:54 AM [facility] MCV 92.9 79.0 - 98.0 FL LAB HEMETOLOGY METHOD 10/30/2025 10:54 AM [facility] MCH 26.7(L) 27.0 - 32.0 pcg LAB HEMETOLOGY METHOD 10/30/2025 10:54 AM [facility] MCHC 28.7(L) 32.0 - 37.0 g/dL LAB HEMETOLOGY METHOD 10/30/2025 10:54 AM [facility] RDW 15.6(H) 11.0 - 15.0 % LAB HEMETOLOGY METHOD 10/30/2025 10:54 AM EST [facility] Platelets 404(H) 130 - 400 K/mcL LAB HEMETOLOGY METHOD 10/30/2025 10:54 AM EST [facility] MPV 9.6 7.0 - 11.0 FL LAB HEMETOLOGY METHOD 10/30/2025 10:54 AM EST [facility] NRBC 0.0 <1.0 % LAB HEMETOLOGY METHOD 10/30/2025 10:54 AM EST [facility] NRBC Absolute 0.00 <0.10 K/mcL LAB HEMETOLOGY METHOD 10/30/2025 10:54 AM [facility] Blood Venous blood specimen / Unknown Venipuncture / Unknown 10/30/2025 7:18 AM EST 10/30/2025 10:32 AM EST us Janice Núñez MD LAB BLOOD ORDERABLES Final Resul t [facility] [address] [place] [address], documented in this encounter Visit Diagnoses Diagnosis Malignant neoplasm of unspecified part of left bronchus or lung (CMS/HCC V24, CMS/HCC V28) Chronic respiratory failure with hypercapnia (CMS/HCC V24, CMS/HCC V28) documented in this encounter Additional Health Concerns Assessment Noted Time PHQ-9 Depression Total Score: 1 07/19/20 25 5:04 PM EDT documented as of this encounter Care Teams Soldering Machine Operator Relationship Specialty Start Date End Date Kinjal Barron FNP [address] [place] [phone] PCP - General Family Medicine 03/06/25 documented as of this encounter
--- OUTSIDE RECORDS SUMMARY | 2025-11-13 10:22 | XMS_ITS | Encounter Summary ---
Author Organization [facility] Address [address] [place] [address] Care Team Providers Care Director Nurses' Registry Name Role Phone Kinjal Barron HAND CLIPPER Primary Care Provid er Encounter Details Date Type Department Care Team (Late st Contact Info) Description 09/24/[address] [facility] - Main Lab [address] [place] [address] Janice Núñez MD [address] [place], [place] [phone] Malignant neoplasm of unspecified part of left [facility] [address] [place] [phone] Lashanda Mcgill, [address] [place] [address] documented as of this encounter Procedures Procedure [...] mmol/L LAB CHEMISTRY METHOD 09/25/2025 3:46 PM [facility] Potassium 3.3(L) 3.5 - 5.5 mmol/L LAB CHEMISTRY METHOD 09/25/2025 3:46 PM [facility] Chloride 93(L) 96 - 110 mmol/L LAB CHEMISTRY METHOD 09/25/2025 3:46 PM [facility] CO2 44(HH) 21 - 32 mmol/L LAB CHEMISTRY METHOD 09/25/2025 3:46 PM [facility] Anion Gap 4 3 - 11 LAB CHEMISTRY METHOD 09/25/2025 3:46 PM [facility] Glucose 71 70 - 100 mg/dL LAB CHEMISTRY METHOD 09/25/2025 3:46 PM [facility] BUN 17 5 - 25 mg/dL LAB CHEMISTRY METHOD 09/25/2025 3:46 PM [facility] Creatinine 0.86 0.50 - 1.10 mg/dL LAB CHEMISTRY METHOD 09/25/2025 3:46 PM [facility] eGFR 72 >=60 mL/min/1. 73m2 LAB CHEMISTRY METHOD 09/25/2025 3:46 PM [facility] Comment:Calculation based on the Chronic Kidney Disease Epidemiology Collaboration (CKD-EPI) equation refit without adjustment for race. BUN/Creatinine Ratio 19.8 LAB CHEMISTRY METHOD 09/25/2025 3:46 PM EDT [facility] Calcium 9.3 8.5 - 10.5 mg/dL LAB CHEMISTRY METHOD 09/25/2025 3:46 PM EDT [facility] Blood Venous blood specimen / Unknown Venipuncture / Unknown 09/25/2025 6:14 AM EDT 09/25/2025 12:02 PM EDT us Janice Núñez MD LAB BLOOD ORDERABLES Final Resul t [facility] [address] [place] [address], [place] [phone] * (ABNORMAL) Complete blood count (09/25/2025 6:14 AM EDT) WBC 8.5 4.8 - 10.8 K/mcL LAB HEMETOLOGY METHOD 09/25/2025 12:36 PM EDT [facility] RBC 3.50(L) 3.80 - 4.80 M/mcL LAB HEMETOLOGY METHOD 09/25/2025 12:36 PM EDT [facility] Hemoglobin 10.0(L) 11.5 - 16.0 g/dL LAB HEMETOLOGY METHOD 09/25/2025 12:36 PM EDT [facility] Hematocrit 35.0 35.0 - 47.0 % LAB HEMETOLOGY METHOD 09/25/2025 12:36 PM EDT [facility] MCV 100.9(H) 79.0 - 98.0 FL LAB HEMETOLOGY METHOD 09/25/2025 12:36 PM EDT [facility] MCH 28.8 27.0 - 32.0 pcg LAB HEMETOLOGY METHOD 09/25/2025 12:36 PM EDT [facility] MCHC 28.6(L) 32.0 - 37.0 g/dL LAB HEMETOLOGY METHOD 09/25/2025 12:36 PM EDT [facility] RDW 16.9(H) 11.0 - 15.0 % LAB HEMETOLOGY METHOD 09/25/2025 12:36 PM EDT [facility] Platelets 358 130 - 400 K/mcL LAB HEMETOLOGY METHOD 09/25/2025 12:36 PM EDT [facility] MPV 9.6 7.0 - 11.0 FL LAB HEMETOLOGY METHOD 09/25/2025 12:36 PM EDT [facility] NRBC 0.2 <1.0 % LAB HEMETOLOGY METHOD 09/25/2025 12:36 PM EDT [facility] NRBC Absolute 0.02 <0.10 K/mcL LAB HEMETOLOGY METHOD 09/25/2025 12:36 PM EDT [facility] Blood Venous blood specimen / Unknown Venipuncture / Unknown 09/25/2025 6:14 AM EDT 09/25/2025 10:26 AM EDT us Janice Núñez MD LAB BLOOD ORDERABLES Final Resul t [facility] [address] [place] [address], documented in this encounter Visit Diagnoses Diagnosis Malignant neoplasm of unspecified part of left bronchus or lung (CMS/HCC V24, CMS/HCC V28) Chronic respiratory failure with hypercapnia (CMS/HCC V24, CMS/HCC V28) documented in this encounter Additional Health Concerns Assessment Noted Time PHQ-9 Depression Total Score: 1 07/19/20 25 5:04 PM EDT documented as of this encounter Care Teams Director Nurses' Registry Relationship Specialty Start Date End Date Kinjal Barron FNP [address] [place] [phone] PCP - General Family Medicine 03/06/25 documented as of this encounter
--- OUTSIDE RECORDS SUMMARY | 2025-11-13 10:22 | XMS_ITS | Encounter Summary ---
Author Organization [facility] Address [address] [place] [address] Care Team Providers Care Fios Line Installer Name Role Phone Kinjal Barron INFORMATION TECHNOLOGY TECHNICIAN Primary Care Provid er Encounter Details Date Type Department Care Team (Late st Contact Info) Description 10/01/2025 Lab Requisition [facility] - Main Lab [address] [place] [address] Janice Núñez MD [address] [place], [place] [phone] Malignant neoplasm of unspecified part of left [...] 02/18/2026 10:30 AM EDT Office Visit [facility] Hematology Oncology [address] [place] [phone] Lashanda Mcgill, [address] [place] [address] documented as of this encounter Procedures Procedure [...] mmol/L LAB CHEMISTRY METHOD 10/02/2025 10:46 AM [facility] Potassium 3.7 3.5 - 5.5 mmol/L LAB CHEMISTRY METHOD 10/02/2025 10:46 AM [facility] Chloride 92(L) 96 - 110 mmol/L LAB CHEMISTRY METHOD 10/02/2025 10:46 AM [facility] CO2 42(HH) 21 - 32 mmol/L LAB CHEMISTRY METHOD 10/02/2025 10:46 AM [facility] Anion Gap 4 3 - 11 LAB CHEMISTRY METHOD 10/02/2025 10:46 AM [facility] Glucose 95 70 - 100 mg/dL LAB CHEMISTRY METHOD 10/02/2025 10:46 AM [facility] BUN 16 5 - 25 mg/dL LAB CHEMISTRY METHOD 10/02/2025 10:46 AM [facility] Creatinine 1.12(H) 0.50 - 1.10 mg/dL LAB CHEMISTRY METHOD 10/02/2025 10:46 AM [facility] eGFR 53(L) >=60 mL/min/1. 73m2 LAB CHEMISTRY METHOD 10/02/2025 10:46 AM [facility] Comment:Calculation based on the Chronic Kidney Disease Epidemiology Collaboration (CKD-EPI) equation refit without adjustment for race. BUN/Creatinine Ratio 14.3 LAB CHEMISTRY METHOD 10/02/2025 10:46 AM [facility] Calcium 9.2 8.5 - 10.5 mg/dL LAB CHEMISTRY METHOD 10/02/2025 10:46 AM [facility] Blood Venous blood specimen / Unknown Venipuncture / Unknown 10/02/2025 7:32 AM EST 10/02/2025 8:51 AM EST us Janice Núñez MD LAB BLOOD ORDERABLES Final Resul t [facility] [address] [place] [address], [place] [phone] * (ABNORMAL) Complete blood count (10/02/2025 7:32 AM EST) WBC 7.3 4.8 - 10.8 K/mcL LAB HEMETOLOGY METHOD 10/02/2025 9:43 AM [facility] RBC 3.50(L) 3.80 - 4.80 M/[facility] LAB HEMETOLOGY METHOD 10/02/2025 9:43 AM [facility] Hemoglobin 9.9(L) 11.5 - 16.0 g/dL LAB HEMETOLOGY METHOD 10/02/2025 9:43 AM [facility] Hematocrit 34.1(L) 35.0 - 47.0 % LAB HEMETOLOGY METHOD 10/02/2025 9:43 AM [facility] MCV 98.8(H) 79.0 - 98.0 FL LAB HEMETOLOGY METHOD 10/02/2025 9:43 AM [facility] MCH 28.7 27.0 - 32.0 pcg LAB HEMETOLOGY METHOD 10/02/2025 9:43 AM [facility] MCHC 29.0(L) 32.0 - 37.0 g/dL LAB HEMETOLOGY METHOD 10/02/2025 9:43 AM EST [facility] RDW 16.7(H) 11.0 - 15.0 % LAB HEMETOLOGY METHOD 10/02/2025 9:43 AM [facility] Platelets 443(H) 130 - 400 K/mcL LAB HEMETOLOGY METHOD 10/02/2025 9:43 AM EST [facility] MPV 9.3 7.0 - 11.0 FL LAB HEMETOLOGY METHOD 10/02/2025 9:43 AM EST [facility] NRBC 0.0 <1.0 % LAB HEMETOLOGY METHOD 10/02/2025 9:43 AM [facility] NRBC Absolute 0.00 <0.10 K/mcL LAB HEMETOLOGY METHOD 10/02/2025 9:43 AM [facility] Blood Venous blood specimen / Unknown Venipuncture / Unknown 10/02/2025 7:32 AM EST 10/02/2025 8:51 AM EST us Janice Núñez MD LAB BLOOD ORDERABLES Final Resul t [facility] [address] [place] [address], documented in this encounter Visit Diagnoses Diagnosis Malignant neoplasm of unspecified part of left bronchus or lung (CMS/HCC V24, CMS/HCC V28) Chronic respiratory failure with hypercapnia (CMS/HCC V24, CMS/HCC V28) documented in this encounter Additional Health Concerns Assessment Noted Time PHQ-9 Depression Total Score: 1 07/19/20 25 5:04 PM EDT documented as of this encounter Care Teams Fios Line Installer Relationship Specialty Start Date End Date Kinjal Barron FNP [address] [place] [phone] PCP - General Family Medicine 03/06/25 documented as of this encounter
--- OUTSIDE RECORDS SUMMARY | 2025-11-13 10:23 | XMS_ITS | Clinical Summary ---
Author Organization [facility] Prior to 04/27/[address] [place] [address] Care Team Providers Care Renewal Specialist Name Role Phone Debra Ji MD Primary Care Provider [phone] Allergies Active Allergy Reactions Criticality Noted Date [...] 0 Active zoster vaccine live, PF, (ZOSTAVAX) 16534 UNT/0.65ML injection Inject 0.65 mL under the [...] age to complete this topic Care Teams Renewal Specialist Relationship Specialty Start Date End Date Debra Ji MD PCP - General Internal Medicine 06/27/17
--- OUTSIDE RECORDS SUMMARY | 2025-11-13 10:23 | XMS_ITS | Encounter Summary ---
Author Organization [facility] Address [address] [place] [address] Care Team Providers Care Simulation Specialist Name Role Phone Kinjal Barron PLASTIC SURGERY NURSE Primary Care Provid er Encounter Details Date Type Department Care Team (Late st Contact Info) Description 11/12/2025 Lab Requisition [facility] - Main Lab [address] [place] [address] Janice Núñez MD [address] [place], [place] [phone] Malignant neoplasm of unspecified part of left [...] Description 02/18/2026 10:30 AM EDT Office Visit [facility] Hematology Oncology [address] [place] [phone] Lashanda Mcgill, [address] [place] [address] Pending Results Name Type Priority Associated Diagnoses Date /Time Complete blood count Lab Routine Malignant neoplasm of unspecified part of left bronchus or lung (CMS/HCC V24, CMS/HCC V28) Chronic respiratory failure with hypercapnia (CMS/HCC V24, CMS/HCC V28) 11/13/2025 7:56 AM EST Basic metabolic panel Lab Routine Malignant neoplasm of unspecified part of left bronchus or lung (CMS/HCC V24, CMS/HCC V28) Chronic respiratory failure with hypercapnia (CMS/HCC V24, CMS/HCC V28) 11/13/2025 7:56 AM EST documented as of this encounter Visit Diagnoses Diagnosis Malignant neoplasm of unspecified part of left bronchus or lung (CMS/HCC V24, CMS/HCC V28) Chronic respiratory failure with hypercapnia (CMS/HCC V24, CMS/HCC V28) documented in this encounter Additional Health Concerns Assessment Noted Time PHQ-9 Depression Total Score: 1 07/19/20 25 5:04 PM EDT documented as of this encounter Care Teams Simulation Specialist Relationship Specialty Start Date End Date Kinjal Barron FNP [address] [place] [phone] PCP - General Family Medicine 03/06/25 documented as of this encounter
--- OUTSIDE RECORDS SUMMARY | 2025-11-13 10:23 | XMS_ITS | Encounter Summary ---
Author Organization [facility] Address [address] [place] [address] Care Team Providers Care Feeder Switchboard Operator Name Role Phone Kinjal Barron WEB DESIGN SPECIALIST Primary Care Provid er Encounter Details Date Type Department Care Team (Late st Contact Info) Description 10/15/2025 Lab Requisition [facility] - Main Lab [address] [place] [address] Janice Nñúez MD [address] [place], [place] [phone] Malignant neoplasm of unspecified part of left [...] [facility] Hematology Oncology [address] [place] [phone] Lashanda Mcgill, [address] [place] [address] documented as of this encounter Procedures Procedure [...] 133 - 145 mmol/L 10/16/2025 12:36 PM [facility] Potassium 3.6 3.5 - 5.5 mmol/L 10/16/2025 12:36 PM [facility] Chloride 93(L) 96 - 110 mmol/L 10/16/2025 12:36 PM [facility] CO2 >40(HH) 21 - 32 mmol/L 10/16/2025 12:36 PM [facility] Anion Gap <8 3 - 11 10/16/2025 12:36 PM [facility] Glucose 73 70 - 100 mg/dL 10/16/2025 12:36 PM [facility] BUN 17 5 - 25 mg/dL 10/16/2025 12:36 PM [facility] Creatinine 0.89 0.50 - 1.10 mg/dL 10/16/2025 12:36 PM [facility] eGFR 69 >=60 mL/min/1. 73m2 10/16/2025 12:36 PM [facility] Comment:Calculation based on the Chronic Kidney Disease Epidemiology Collaboration (CKD-EPI) equation refit without adjustment for race. BUN/Creatinine Ratio 19.1 10/16/2025 12:36 PM [facility] Calcium 8.4(L) 8.5 - 10.5 mg/dL 10/16/2025 12:36 PM [facility] Blood Venous blood specimen / Unknown Venipuncture / Unknown 10/16/2025 5:37 AM EST 10/16/2025 9:38 AM EST us Janice Núñez MD LAB BLOOD ORDERABLES Final Resul t [facility] [address] [place] [address], * (ABNORMAL) Complete blood count (10/16/2025 5:37 AM EST) WBC 8.1 4.8 - 10.8 K/mcL LAB HEMETOLOGY METHOD 10/16/2025 10:28 AM [facility] RBC 2.80(L) 3.80 - 4.80 M/[facility] LAB HEMETOLOGY METHOD 10/16/2025 10:28 AM [facility] Hemoglobin 8.0(L) 11.5 - 16.0 g/dL LAB HEMETOLOGY METHOD 10/16/2025 10:28 AM [facility] Hematocrit 27.8(L) 35.0 - 47.0 % LAB HEMETOLOGY METHOD 10/16/2025 10:28 AM [facility] MCV 98.9(H) 79.0 - 98.0 FL LAB HEMETOLOGY METHOD 10/16/2025 10:28 AM [facility] MCH 28.5 27.0 - 32.0 pcg LAB HEMETOLOGY METHOD 10/16/2025 10:28 AM [facility] MCHC 28.8(L) 32.0 - 37.0 g/dL LAB HEMETOLOGY METHOD 10/16/2025 10:28 AM [facility] RDW 15.3(H) 11.0 - 15.0 % LAB HEMETOLOGY METHOD 10/16/2025 10:[address] [facility] Platelets 400 130 - 400 K/mcL LAB HEMETOLOGY METHOD 10/16/2025 10:[address] [facility] MPV 9.2 7.0 - 11.0 FL LAB HEMETOLOGY METHOD 10/16/2025 10:[address] [facility] NRBC 0.0 <1.0 % LAB HEMETOLOGY METHOD 10/16/2025 10:28 AM [facility] NRBC Absolute 0.00 <0.10 K/mcL LAB HEMETOLOGY METHOD 10/16/2025 10:28 AM [facility] Blood Venous blood specimen / Unknown Venipuncture / Unknown 10/16/2025 5:37 AM EST 10/16/2025 9:38 AM EST us Janice Núñez MD LAB BLOOD ORDERABLES Final Resul t [facility] [address] [place] [address], documented in this encounter Visit Diagnoses Diagnosis Malignant neoplasm of unspecified part of left bronchus or lung (CMS/HCC V24, CMS/HCC V28) Chronic respiratory failure with hypercapnia (CMS/HCC V24, CMS/HCC V28) documented in this encounter Additional Health Concerns Assessment Noted Time PHQ-9 Depression Total Score: 1 07/19/20 25 5:04 PM EDT documented as of this encounter Care Teams Feeder Switchboard Operator Relationship Specialty Start Date End Date Kinjal Barron FNP [address] [place] [phone] PCP - General Family Medicine 03/06/25 documented as of this encounter
--- OUTSIDE RECORDS SUMMARY | 2025-11-13 10:23 | XMS_ITS | Clinical Summary ---
Author Organization [facility] Address [address] [place] [address] Phone Care Team Providers Care Rag Collector Name Role Phone Rabia Barrongeovanny Jacqueline MONOTYPE CASTER Primary Care Provid er Allergies Active Allergy [...] ions:Chronic obstructive pulmonary disease, unspecified COPD type (CMS/[facility] V24, [facility] V28),Chronic respiratory failure with hypercapnia ([facility] V24, [facility] V28) Take 3 mL by nebulization [...] tabletIndicatio ns:Squamous cell carcinoma of left lung ([facility] V24, [facility] V28) Take 8 mg (two tablets) [...] 2 (two) times a day. Active omega 0-xrd-qrq-fish oil 300 mg (120 mg- 180mg)-1,000 mg [...] on CPAP 11/08/2017 Overview (09/12/2024): Life supply/cpap [facility] Polysomnogram Trilogy treatment study. Date 09/06/2019. [...] Encounters Date Type Department Care Team Description 11/12/2025 Lab Requisition [facility] - Main Lab [address] [place] [phone] Janice Núñez MD Malignant neoplasm of unspecified part of left bronchus or lung (CMS/HCC V24, CMS/HCC V28); Chronic respiratory failure with hypercapnia (CMS/HCC V24, CMS/HCC V28) 11/05/2025 Lab Requisition [facility] Lab [address] [place] [phone] Janice Núñez MD Malignant neoplasm of unspecified part of left bronchus or lung (CMS/HCC V24, CMS/HCC V28); Chronic respiratory failure with hypercapnia (CMS/HCC V24, CMS/HCC V28) 10/29/2025 Lab Requisition [facility] Lab [address] [place] [phone] Janice Núñez MD Malignant neoplasm of unspecified part of left bronchus or lung (CMS/HCC V24, CMS/HCC V28); Chronic respiratory failure with hypercapnia (CMS/HCC V24, CMS/HCC V28) 10/28/2025 Telephone [facility] [address] [place] [phone] Lashanda Mcgill DO 10/22/2025 Lab Requisition [facility] Lab [address] [place] [phone] Janice Núñez MD Malignant neoplasm of unspecified part of left bronchus or lung (CMS/HCC V24, CMS/HCC V28); Chronic respiratory failure with hypercapnia (CMS/HCC V24, CMS/HCC V28) 10/21/2025 Lab Requisition [facility] Lab [address] [place] [phone] Janice Núñez MD Anemia, unspecified; Essential (primary) hypertension; Malignant neoplasm of unspecified part of unspecified bronchus or lung (CMS/HCC V24, CMS/HCC V28) 10/18/2025 10:45 AM EST Office Visit [facility] Hematology Oncology [address] [place] [phone] Lashanda Mcgill DO Squamous cell carcinoma of left lung (CMS/HCC V24, CMS/HCC V28) (Primary Dx); Chronic respiratory failure with hypercapnia ([facility]/HCC V24, CMS/HCC V28); Mild anemia 10/16/2025 Lab Requisition [facility] Lab [address] [place] [phone] Janice Núñez MD Dysuria 10/15/2025 Lab Requisition [facility] Lab [address] [place] [phone] Janice Núñez MD Malignant neoplasm of unspecified part of left bronchus or lung ([facility]/HCC V24, CMS/HCC V28); Chronic respiratory failure with hypercapnia ([facility]/HCC V24, [facility]/HCC V28) 10/08/2025 10:00 AM EST - 10/08/2025 11:59 PM [facility] PET Scan [address] [place] [phone] Squamous cell carcinoma of left lung ([facility]/HCC V24, [facility]/HCC V28); Personal history of malignant neoplasm of lung; Malignant neoplasm of overlapping sites of left bronchus and lung ([facility]/HCC V24, [facility]/HCC V28) Discharge Disposition: Home or Self Care 10/08/2025 Lab Requisition [facility] Lab [address] [place] [phone] Janice Núñez MD Malignant neoplasm of unspecified part of left bronchus or lung ([facility]/HCC V24, CMS/HCC V28); Chronic respiratory failure with hypercapnia ([facility]/HCC V24, CMS/HCC V28) 10/01/2025 Lab Requisition [facility] Lab [address] [place] [phone] Janice Núñez MD Malignant neoplasm of unspecified part of left bronchus or lung ([facility]/HCC V24, CMS/HCC V28); Chronic respiratory failure with hypercapnia (CMS/HCC V24, CMS/HCC V28) 09/24/2025 Lab Requisition [facility] Lab [address] [place] [phone] Janice Núñez MD Malignant neoplasm of unspecified part of left bronchus or lung (CMS/HCC V24, CMS/HCC V28); Chronic respiratory failure with hypercapnia (CMS/HCC V24, CMS/HCC V28) 09/19/2025 Telephone [facility]iation [facility] [address] [place] [phone] Debra Loya, RD 09/17/2025 11:45 AM EDT Office Visit [facility] [address] [place] [phone] Lashanda Mcgill DO Squamous cell carcinoma of left lung (CMS/HCC V24, CMS/HCC V28) (Primary Dx); Personal history of malignant neoplasm of lung; Malignant neoplasm of overlapping sites of left bronchus and lung (CMS/HCC V24, CMS/HCC V28) 09/17/2025 Lab Requisition [facility] Lab [address] [place] [phone] Janice Núñez MD Malignant neoplasm of unspecified part of left bronchus or lung (CMS/HCC V24, CMS/HCC V28); Chronic respiratory failure with hypercapnia (CMS/HCC V24, CMS/HCC V28) 09/12/2025 Telephone [facility] [address] [place] [phone] Elke Duong, SHELBY 09/10/2025 Lab Requisition [facility] Lab [address] [place] [phone] Janice Núñez MD Malignant neoplasm of unspecified part of left bronchus or lung (CMS/HCC V24, CMS/HCC V28); Chronic respiratory failure with hypercapnia (CMS/HCC V24, CMS/HCC V28) 09/09/2025 Lab Requisition [facility] Lab [address] [place] [phone] Janice Núñez MD Chronic obstructive pulmonary disease, unspecified ([facility] V24, [facility] V28); Malignant neoplasm of unspecified part of unspecified bronchus or lung ([facility] V24, [facility] V28) 09/05/2025 10:39 AM EDT - 09/06/2025 6:08 PM EDT Hospital Encounter [facility] [address] [place] [phone] Glenroy Paez MD Flores, Carlos M, MD Bell, Alistair A, MD Stroke-like symptoms (Primary Dx) Discharge Disposition: Fdc Facility 09/05/2025 Telephone [facility] [address] [place] [phone] Erika Tran RN 09/03/2025 Lab Requisition [facility] Lab [address] [place] [phone] Janice Núñez MD Malignant neoplasm of unspecified part of left bronchus or lung ([facility] V24, [facility] V28); Chronic respiratory failure with hypercapnia ([facility] V24, [facility] V28) 09/01/2025 Lab Requisition [facility] Lab [address] [place] [phone] Janice Núñez MD Frequency of micturition; Fever, unspecified 08/30/2025 Lab Requisition [facility] Lab [address] [place] [phone] Janice Núñez MD Hyperkalemia 08/27/2025 Lab Requisition [facility] Lab [address] [place] [phone] Janice Núñez MD Malignant neoplasm of unspecified part of left bronchus or lung ([facility] V24, [facility] V28); Chronic respiratory failure with hypercapnia ([facility] V24, [facility] V28) 08/20/2025 Lab Requisition [facility] - Main Lab [address] [facility] [place] [phone] Janice Núñez MD Malignant neoplasm of unspecified part of left bronchus or lung ([facility] V24, [facility] V28); Respiratory failure, unspecified, unspecified whether with hypoxia or hypercapnia ([facility] V24, [facility] V28); 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 from Last 3 Months [...] Comments Depression 10/09/2017 DX:Depression Bipolar I disorder ([facility] V24, [facility] V28) 06/10/2017 DX:Bipolar I disorder (HCC) Chronic obstructive pulmonar y disease ([facility] V24, [facility] V28) 07/29/2017 DX:Chronic obstructive pulm onary disease (HCC), will bipap Chronic respiratory failure with hypercapnia ([facility] V24, [facility] V28) 08/02/2017 DX:Chronic resp iratory failure with hypercapnia ([facility]), uses trelegy machine/ will bring dos [...] , hx Emphysema of lung ([facility] V 24, [facility] V28) per daughter HL (hearing loss) wears hearing aids Full dentures Lung cancer ([facility] V24, [facility] V28) 03/2025 Asthma 1111 Psychiatric illness Family [...] [facility] [address] [place] [phone] Lashanda Mcgill DO [address] [place] [address] Health Maintenance Due Date Last Done Comments [...] this topic Medical Devices Implanted Type Area Route Delivery Manager Device Identifier Shelf Expiration Date Model / Serial / Lot Port Pwr Isp Attach 6f Interm Galina - [id number] Implanted:Qty : 1 on 07/09/2025 by Jesica Henderson MD at [facility] Central/Per ipheral Catheters and Ports Right: Internal Jugular CR BARD PERIPHERAL VASCULAR [id number] 09/27/2025 [id number] / / [id number] Marker Cobra Superlock - Sna - [id number] Implanted:Qty : 1 on 04/03/2025 by Justine Wong MD at 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 VITAMIN B12 Routine 08/20/2025 4:50 AM EDT Malignant neoplasm of unspecified part of left bronchus or lung (CMS/HCC V24, CMS/HCC V28) Respiratory failure, unspecified, unspecified whether with hypoxia or hypercapnia (CMS/HCC V24, CMS/HCC V28) 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 HEMOGLOBIN A1C Routine 08/20/2025 4:50 AM EDT Malignant neoplasm of unspecified part of left bronchus or lung (CMS/HCC V24, CMS/HCC V28) Respiratory failure, unspecified, unspecified whether with hypoxia or hypercapnia (CMS/HCC V24, CMS/HCC V28) 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 THYROID STIMULATING HORMONE Routine 08/20/2025 4:50 AM EDT Malignant neoplasm of unspecified part of left bronchus or lung (CMS/HCC V24, CMS/HCC V28) Respiratory failure, unspecified, unspecified whether with hypoxia or hypercapnia (CMS/HCC V24, CMS/HCC V28) 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 FOLATE Routine 08/20/2025 4:50 AM EDT Malignant neoplasm of unspecified part of left bronchus or lung (CMS/HCC V24, CMS/HCC V28) Respiratory failure, unspecified, unspecified whether with hypoxia or hypercapnia (CMS/HCC V24, CMS/HCC V28) 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 COMPREHENSIVE METABOLIC PANEL Routine 08/20/2025 4:50 AM EDT Malignant neoplasm of unspecified part of left bronchus or lung (CMS/HCC V24, CMS/HCC V28) Respiratory failure, unspecified, unspecified whether with hypoxia or hypercapnia (CMS/HCC V24, CMS/HCC V28) 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 COMPLETE BLOOD COUNT Routine 08/20/2025 4:50 AM EDT Malignant neoplasm of unspecified part of left bronchus or lung (CMS/HCC V24, CMS/HCC V28) Respiratory failure, unspecified, unspecified whether with hypoxia or hypercapnia (CMS/HCC V24, CMS/HCC V28) Other halfway (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 therapy COLONOSCOPY Routine 04/27/2024 DEPRESSION SCREENING Routine 04/16/2024 [facility] SCREENING DIGITAL Routine 03/22/2024 8:50 AM EDT Encounter for screening mammogram for malignant neoplasm of breast [facility] DEXA AXIAL SKELETON Routine 03/22/2024 8:14 [...] K/mcL LAB HEMETOLOGY METHOD 11/06/2025 11:10 AM [facility] LAB RBC 3.00(L) 3.80 - 4.80 M/[facility] LAB HEMETOLOGY METHOD 11/06/2025 11:10 AM [facility] LAB Hemoglobin 7.8(L) 11.5 - 16.0 g/dL LAB HEMETOLOGY METHOD 11/06/2025 11:10 AM [facility] LAB Hematocrit 27.6(L) 35.0 - 47.0 % LAB HEMETOLOGY METHOD 11/06/2025 11:10 AM [facility] LAB MCV 92.3 79.0 - 98.0 FL LAB HEMETOLOGY METHOD 11/06/2025 11:10 AM EST [facility] LAB MCH 26.1(L) 27.0 - 32.0 pcg LAB HEMETOLOGY METHOD 11/06/2025 11:10 AM [facility] LAB MCHC 28.3(L) 32.0 - 37.0 g/dL LAB HEMETOLOGY METHOD 11/06/2025 11:10 AM EST [facility] RDW 15.9(H) 11.0 - 15.0 % LAB HEMETOLOGY METHOD 11/06/2025 11:10 AM [facility] LAB Platelets 465(H) 130 - 400 K/mcL LAB HEMETOLOGY METHOD 11/06/2025 11:10 AM [facility] LAB MPV 9.8 7.0 - 11.0 FL LAB HEMETOLOGY METHOD 11/06/2025 11:10 AM EST [facility] LAB NRBC 0.0 <1.0 % LAB HEMETOLOGY METHOD 11/06/2025 11:10 AM [facility] LAB NRBC Absolute 0.00 <0.10 K/mcL LAB HEMETOLOGY METHOD 11/06/2025 11:10 AM [facility] LAB Blood Venous blood specimen / Unknown Venipuncture / Unknown 11/06/2025 7:41 AM EST 11/06/2025 10:49 AM EST us Janice Núñez MD LAB BLOOD ORDERABLES Final Resul t [facility] [address] [place] [address], * (ABNORMAL) Basic metabolic panel (11/06/2025 7:41 AM EST) Only the most recent of16 resultswithin the time period is included. Sodium 139 133 - 145 mmol/L 11/06/2025 12:07 PM [facility] Potassium 3.5 3.5 - 5.5 mmol/L 11/06/2025 12:07 PM [facility] Chloride 91(L) 96 - 110 mmol/L 11/06/2025 12:07 PM [facility] CO2 >40(HH) 21 - 32 mmol/L 11/06/2025 12:07 PM [facility] Anion Gap <8 3 - 11 11/06/2025 12:07 PM [facility] Glucose 79 70 - 100 mg/dL 11/06/2025 12:07 PM [facility] BUN 12 5 - 25 mg/dL 11/06/2025 12:07 PM [facility] Creatinine 0.97 0.50 - 1.10 mg/dL 11/06/2025 12:07 PM [facility] eGFR 63 >=60 mL/min/1. 73m2 11/06/2025 12:07 PM [facility] Comment:Calculation based on the Chronic Kidney Disease Epidemiology Collaboration (CKD-EPI) equation refit without adjustment for race. BUN/Creatinine Ratio 12.4 11/06/2025 12:07 PM [facility] Calcium 8.8 8.5 - 10.5 mg/dL 11/06/2025 12:07 PM [facility] Blood Venous blood specimen / Unknown Venipuncture / Unknown 11/06/2025 7:41 AM EST 11/06/2025 10:49 AM EST us Janice Núñez MD LAB BLOOD ORDERABLES Final Resul t [facility] [address] [place] [address], * (ABNORMAL) Iron and TIBC (10/21/2025 8:45 AM EST) Iron 10(L) 40 - 150 mcg/dL 10/21/2025 11:32 AM EST [facility] TIBC 392 250 - 450 mcg/dL 10/21/2025 11:32 AM EST [facility] Iron Saturation 3(L) 15 - 50 % 11:32 AM EST [facility] Blood Venous blood specimen / Unknown Venipuncture / Unknown 10/21/2025 8:45 AM EST 10/21/2025 10:33 AM EST us Janice Núñez MD LAB BLOOD ORDERABLES Final Resul t Performing Organization Address [facility] de Phone Number [facility] [address] [place] [address], [place] [phone] * Folate (10/21/2025 8:45 AM EST) Only the most recent of2 resultswithin the time period is included. Folate 18.8 >=5.4 ng/ml 10/21/2025 11:30 AM [facility] Blood Venous blood specimen / Unknown Venipuncture / Unknown 10/21/2025 8:45 AM EST 10/21/2025 10:33 AM EST Narrative [facility] - 10/21/2025 11:30 AM EST Over the counter supplements containing high doses of biotin may interfere with this assay. If interference is suspected, patients shoud be retested after refraining from biotin supplements for 72 hours. us Janice Núñez MD LAB BLOOD ORDERABLES Final Resul t Performing Organization Address City/[facility]/ZIP Co de Phone Number [facility] [address] [place] [address], [place] [phone] * Ferritin (10/21/2025 8:45 AM EST) Ferritin 11 7 - 271 ng/mL 10/21/2025 11:30 AM EST [facility] Blood Venous blood specimen / Unknown Venipuncture / Unknown 10/21/2025 8:45 AM EST 10/21/2025 10:33 AM EST us Janice Núñez MD LAB BLOOD ORDERABLES Final Resul t Performing Organization Address City/[facility]/ZIP Co de Phone Number [facility] [address] [place] [address], [place] [phone] * Vitamin B12 (10/21/2025 8:45 AM EST) Only the most recent of2 resultswithin the time period is included. [facility] Vitamin B-12 631 211 - 911 pcg/mL 10/21/2025 11:30 AM EST [facility] Blood Venous blood specimen / Unknown Venipuncture / Unknown 10/21/2025 8:45 AM EST 10/21/2025 10:33 AM EST us Janice Núñez MD LAB BLOOD ORDERABLES Final Resul t Performing Organization Address [facility] Co de Phone Number [facility] [address] [place] [address], [place] [phone] * (ABNORMAL) Urinalysis with reflex microscopic (10/16/2025 12:00 AM EST) Only the most recent of2 resultswithin the time period is included. [facility] Specific Malin Urine 1.015 1.003 - 1.030 LAB URINALYSIS - AUTOMATED METHOD 10/16/2025 11:46 AM EST [facility] pH, Urine 7.5 5.0 - 8.0 pH LAB URINALYSIS - AUTOMATED METHOD 10/16/2025 11:46 AM EST [facility] Leukocytes, Urine Large(A) Negative LAB URINALYSIS - AUTOMATED METHOD 10/16/2025 11:46 AM [facility] Nitrite, Urine Negative Negative LAB URINALYSIS - AUTOMATED METHOD 10/16/2025 11:46 AM [facility] Protein, Urine 100(A) <=Trace mg/dL LAB URINALYSIS - AUTOMATED METHOD 10/16/2025 11:46 AM [facility] Glucose, Urine Negative Negative mg/dL LAB URINALYSIS - AUTOMATED METHOD 10/16/2025 11:46 AM [facility] Ketones, Urine Negative Negative mg/dL LAB URINALYSIS - AUTOMATED METHOD 10/16/2025 11:46 AM [facility] Urobilinogen , Urine 0.2 0.2 - 1.0 mg/dL LAB URINALYSIS - AUTOMATED METHOD 10/16/2025 11:46 AM [facility] Bilirubin, Urine Negative Negative LAB URINALYSIS - AUTOMATED METHOD 10/16/2025 11:46 AM [facility] Blood, Urine Moderate(A) Negative LAB URINALYSIS - AUTOMATED METHOD 10/16/2025 11:46 AM [facility] RBC, Urine 20(H) 0 - 4 /HPF 10/16/2025 11:46 AM [facility] WBC, Urine 30(H) 0 - 4 /HPF 10/16/2025 11:46 AM [facility] Squamous Epithelial, Urine 2 0 - 60 /LPF 10/16/2025 11:46 AM [facility] Non-Squamous Epithelial, Urine 2-5 Transitional epithelial cells. /LPF 10/16/2025 11:46 AM [facility] Bacteria, Urine Moderate(A) Negative /HPF 10/16/2025 11:46 AM [facility] Urine Urine specimen from urethra / Unknown Non-blood Collection / Unknown 10/16/2025 10/16/2025 10:00 AM EST Janice Núñez MD LAB URINE ORDERABLES Final Resul t [facility] [address] [place] [address], [place] [phone] * (ABNORMAL) Culture urine (10/16/2025 12:00 AM EST) Only the most recent of2 resultswithin the time period is included. Culture, Urine 50,000-100,000 CFU/mL Klebsiella aerogenes(A) SERGIO 10/18/2025 10:36 AM EST [facility] Comment: This is an edited [...] MICROBIOLOGY - GENERAL ORDER KANE Final Result [facility] [address] [place] [address], [place] [phone] * PET CT Skull to Mid Thigh [...] Signed Date: 10/15/2025 14:01 ET Workstation ID: [id number] Transcribed By: Self Edit Transcribed Date: 10/15/2025 [...] Signed Date: 10/15/2025 14:01 ET Workstation ID: [id number] Transcribed By: Self Edit Transcribed Date: 10/15/2025 13:25 ET us Lashanda Mcgill DO IMG NM PROCEDURES Fin al Result * ECG-Annotated (09/07/2025) us Provider Onbase MD ECG ORDERABLES Final Result * (ABNORMAL) Lipid panel with reflex to direct LDL (09/06/2025 6:02 AM EDT) Cholesterol 239(H) 0 - 200 mg/dL LAB CHEMISTRY METHOD 09/06/2025 1:02 PM EDT [facility] Triglycerides 99 0 - 150 mg/dL LAB CHEMISTRY METHOD 09/06/2025 1:02 PM EDT [facility] HDL 98 >=40 mg/dL LAB CHEMISTRY METHOD 09/06/2025 1:02 PM EDT [facility] LDL Calculated 121(H) 0 - 100 mg/dL LAB CHEMISTRY METHOD 09/06/2025 1:02 PM EDT [facility] Comment:Estimated LDL Calcul ated using equation: Total cholesterol - HDL cholesterol - (Triglycerides/5) VLDL Cholesterol Artur 19.8 mg/dL LAB CHEMISTRY METHOD 09/06/2025 1:02 PM EDT [facility] Non HDL Chol. (LDL+VLDL) 141 <145 mg/dL LAB CHEMISTRY METHOD 09/06/2025 1:02 PM [facility] Chol/HDL Ratio 2.4 0.0 - 4.4 LAB CHEMISTRY METHOD 09/06/2025 1:02 PM T [facility] Blood Blood sample taken from central line / Unknown Venipuncture / Unknown 09/06/2025 6:02 AM EDT 09/06/2025 6:18 AM EDT us Sathish Erwin MD LAB BLOOD ORDERABLES Final Re sult [facility] [address] [place] [address], * (ABNORMAL) CBC auto differential (09/06/2025 6:02 AM EDT) Only the most recent of2 resultswithin the time period is included. WBC 3.5(L) 4.8 - 10.8 K/mcL LAB HEMETOLOGY METHOD 09/06/2025 6:37 AM EDT [facility] RBC 3.80 3.80 - 4.80 M/[facility] LAB HEMETOLOGY METHOD 09/06/2025 6:37 AM EDT [facility] Hemoglobin 10.6(L) 11.5 - 16.0 g/dL LAB HEMETOLOGY METHOD [facility]/06[facility]25 [facility] Hematocrit 35.9 35.0 - 47.0 % LAB HEMETOLOGY METHOD 09/06/2025 6:37 AM [facility] MCV 94.2 79.0 - 98.0 FL LAB HEMETOLOGY METHOD 09/06/2025 6:37 AM EDT [facility] MCH 27.8 27.0 - 32.0 pcg LAB HEMETOLOGY METHOD 09/06/2025 6:37 AM [facility] MCHC 29.5(L) 32.0 - 37.0 g/dL LAB HEMETOLOGY METHOD 09/06/2025 6:37 AM [facility] RDW 15.9(H) 11.0 - 15.0 % LAB HEMETOLOGY METHOD 09/06/2025 6:37 AM [facility] Platelets 332 130 - 400 K/mcL LAB HEMETOLOGY METHOD 09/06/2025 6:37 AM [facility] MPV 9.2 7.0 - 11.0 FL LAB HEMETOLOGY METHOD 09/06/2025 6:37 AM [facility] NRBC 0.0 <1.0 % LAB HEMETOLOGY METHOD 09/06/2025 6:37 AM [facility] NRBC Absolute 0.00 <0.10 K/mcL LAB HEMETOLOGY METHOD 09/06/2025 6:37 AM [facility] Neutrophils Relative 64.7 % LAB HEMETOLOGY METHOD 09/06/2025 6:37 AM [facility] LAB Lymphocytes Relative 17.1 % LAB [facility]EMETOLOGY [facility]/06[facility]2025 [facility] Monocytes Relative 14.2 % LAB HEMETOLOGY METHOD 09/06/2025 6:37 AM EDT [facility] Eosinophils Relative 1.4 % LAB HEMETOLOGY METHOD 09/06/2025 6:37 AM [facility] Basophils Relative 1.2 % LAB HEMETOLOGY METHOD 09/06/2025 6:37 AM EDT [facility] Immature Granulocytes Relative 1.4 % LAB HEMETOLOGY METHOD 09/06/2025 6:37 AM EDT [facility] Neutrophils Absolute 2.23 1.50 - 7.00 K/mcL LAB HEMETOLOGY METHOD 09/06/2025 6:[facility] Lymphocytes Absolute 0.59(L) 1.00 - 5.00 K/mcL LAB HEMETOLOGY METHOD 09/06/2025 6:[facility] Monocytes Absolute 0.49 0.20 - 1.00 K/mcL LAB HEMETOLOGY METHOD 09/06/2025 6:37 AM [facility] Eosinophils Absolute 0.05 0.00 - 0.50 K/mcL LAB HEMETOLOGY METHOD 09/06/2025 6:37 AM [facility] Basophils Absolute 0.04 0.00 - 0.20 K/mcL LAB HEMETOLOGY METHOD 09/06/2025 6:37 AM [facility] Immature Granulocytes Absolute 0.05(H) 0.00 - 0.03 K/mcL LAB HEMETOLOGY METHOD 09/06/2025 6:37 AM [facility] Blood Blood sample taken from central line / Unknown Venipuncture / Unknown 09/06/2025 6:02 AM EDT 09/06/2025 6:18 AM EDT us Ayaan Fregoso MD LAB BLOOD ORDERABLES Final Re sult [facility] [address] [place] [address], [place] [phone] * Lamotrigine level (09/06/2025 6:02 AM EDT) Lamotrigine (Lamictal) Level <0.2 2.0 - 15.0 ug/mL 09/09/2025 11:10 AM EDT [facility] Comment: Lamotrigine toxic level: >20 ug/mL The reference range is not well established. It may be as wide as 1 - 20 ug/mL. If applicable, any drug confirmation testing reported here was developed and the performance characteristics determined by [facility]. This confirmation testing has not been cleared or approved by the FDA. The laboratory is regulated under CLIA as qualified to perform high-complexity testing. This test is used for patient testing purposes. It should not be regarded as investigational or for research. Test performed at [facility], [address], [place] [address] Emani Noble MD, PhD - Oyster Cultivator Blood Blood sample taken from central line / Unknown Venipuncture / Unknown 09/06/2025 6:02 AM EDT 09/06/2025 6:17 AM EDT Emani Jackson SHEET METAL INSULATOR LAB BLOOD ORDERABLES [facility] al Result [facility] [address] [place] [address] * Magnesium (09/06/2025 6:02 AM EDT) Only the most recent of2 resultswithin the time period is included. Magnesium 1.9 1.9 - 2.6 mg/dL LAB CHEMISTRY METHOD 09/06/2025 7:07 AM EDT [facility] Blood Blood sample taken from central line / Unknown Venipuncture / Unknown 09/06/2025 6:02 AM EDT 09/06/2025 6:18 AM EDT Ayaan Fregoso MD LAB BLOOD ORDERABLES Final Re sult Performing Organization Address [facility]/ZIP Co de Phone Number [facility] [address] [place] [address], [place] [phone] * (ABNORMAL) Ammonia (09/06/2025 6:02 AM EDT) Ammonia 55(H) 11 - 35 mcmol/L LAB CHEMISTRY METHOD 09/06/2025 6:56 AM EDT [facility] Blood Blood sample taken from central line / Unknown Venipuncture / Unknown 09/06/2025 6:02 AM EDT 09/06/2025 6:18 AM EDT Emani Jackson NP LAB BLOOD ORDERABLES Fin al Result Performing Organization Address [facility] Co de Phone Number [facility] [address] [place] [address], [place] [phone] * MR Brain wo and w Contrast (09/05/2025 6:21 PM EDT) Anatomical Region Laterality Modality Head and Neck Magnetic Resonan ce 09/05/2025 7:17 PM EDT Impressions 09/05/2025 7:17 PM EDT No acute findings. This document has been electronically signed by: Gonzalo Dorantes MD on 09/05/2025 19:17:56 Narrative 09/05/2025 7:17 PM EDT INDICATION: Confusion, acute, unexplained MR Brain with and without gadolinium Comparison: MR/WY/SR - MR BRAIN WO AND W CONTRAST [...] MR Brain with and without gadolinium Comparison: MR/WY/SR - MR BRAIN WO AND W CONTRAST [...] Gonzalo Dorantes MD on 09/05/2025 19:17:56 Emani Jackson NP IMG MRI PROCEDURES Final Result * Respiratory virus panel molecular study (09/05/2025 2:10 PM EDT) Adenovirus Detection by PCR Not Detected Not Detected LAB MICROBIOLOGY METHOD 09/05/2025 3:59 PM EDT [facility] Influenza A PCR Not Detected Not Detected LAB MICROBIOLOGY METHOD 09/05/2025 3:59 PM EDT [facility] Influenza B PCR Not Detected Not Detected LAB MICROBIOLOGY METHOD 09/05/2025 3:59 PM EDT [facility] Coronavirus 229E Not Detected Not Detected LAB MICROBIOLOGY METHOD 09/05/2025 3:59 PM EDT [facility] Coronavirus HKU1 Not Detected Not Detected LAB MICROBIOLOGY METHOD 09/05/2025 3:59 PM EDT [facility] Coronavirus OC43 Not Detected Not Detected LAB MICROBIOLOGY METHOD 09/05/2025 3:59 PM EDT [facility] Coronavirus NL63 Not Detected Not Detected LAB MICROBIOLOGY METHOD 09/05/2025 3:59 PM EDT [facility] Parainfluenza Virus 1 Not Detected Not Detected LAB MICROBIOLOGY METHOD 09/05/2025 3:59 PM EDT [facility] Parainfluenza Virus 2 Not Detected Not Detected LAB MICROBIOLOGY METHOD 09/05/2025 3:59 PM EDT [facility] Parainfluenza Virus 3 Not Detected Not Detected LAB MICROBIOLOGY METHOD 09/05/2025 3:59 PM EDT [facility] Parainfluenza Virus 4 Not Detected Not Detected LAB MICROBIOLOGY METHOD 09/05/2025 3:59 PM EDT [facility] RSV PCR Not Detected Not Detected LAB MICROBIOLOGY METHOD 09/05/2025 3:59 PM EDT [facility] Human Metapneumovirus A and B Not Detected Not Detected LAB MICROBIOLOGY METHOD 09/05/2025 3:59 PM EDT [facility] Rhinovirus/Entero virus Not Detected Not Detected LAB MICROBIOLOGY METHOD 09/05/2025 3:59 PM EDT [facility] Bordetella pertussis Not Detected Not Detected LAB MICROBIOLOGY METHOD 09/05/2025 3:59 PM EDT [facility] Bordetella parapertussis Not Detected Not Detected LAB MICROBIOLOGY METHOD 09/05/2025 3:59 PM EDT [facility] Mycoplasma pneumo by PCR Not Detected Not Detected LAB MICROBIOLOGY METHOD 09/05/2025 3:59 PM EDT [facility] Chlamydia pneumoniae Not Detected Not Detected LAB MICROBIOLOGY METHOD 09/05/2025 3:59 PM EDT [facility] SARS COV-2 Not Detected Not Detected LAB MICROBIOLOGY METHOD 09/05/2025 3:59 PM EDT [facility] Swab Both anterior nares / Unknown Non-blood Collection / Unknown 09/05/2025 2:10 PM EDT 09/05/2025 2:18 PM EDT [facility] - 09/05/2025 3:59 PM EDT Testing was performed using the Vitrinepix Respiratory Pathogen PCR Assay. All results must [...] MICROBIOLOGY - GENER AL ORDERABLES Final Result Performing Organization Address City/[facility]/ZIP Co de Phone Number [facility] [address] [place] [address], [place] [phone] * (ABNORMAL) POCT Glucose, blood (09/05/2025 12:33 PM EDT) Pathologist [facility] Glucose POCT 122(H) 70 - 100 mg/dL 09/05/2025 12:33 PM EDT [facility] Blood Capillary blood specimen / Unknown 09/05/2025 12:33 PM EDT 09/05/2025 12:35 PM EDT Ayaan Fregoso MD LAB POINT OF CARE TE ST DOCKED DEVICE UNSOLICITED RESULTS Final Result Performing Organization Address [facility]/ZIP Co de Phone Number [facility] [address] [place] [address], [place] [phone] * (ABNORMAL) Venous blood gas (09/05/2025 12:33 PM EDT) pH, Feliz 7.35 7.32 - 7.42 pH 09/05/2025 12:44 PM EDT [facility] pCO2, Feliz 93(HH) 41 - 51 mmHg 09/05/2025 12:44 PM EDT [facility] pO2, Feliz 43(H) 25 - 40 mmHg 09/05/2025 12:44 PM EDT [facility] HCO3, Venous 40.5(H) 22.0 - 26.0 mmol/L 09/05/2025 12:44 PM EDT [facility] O2 Sat, Feliz 74.3 % 09/05/2025 12:44 PM EDT [facility] Base Excess, Feliz 20.8(H) -2.0 - 2.0 mmol/L 09/05/2025 12:44 PM EDT [facility] Blood Venous blood specimen / Unknown Venipuncture / Unknown 09/05/2025 12:33 PM EDT 09/05/2025 12:38 PM EDT us Ayaan Fregoso MD LAB BLOOD ORDERABLES Final Re sult [facility] [address] [place] [address], * XR Chest 1 View (09/05/2025 12:28 [...] Signed Date: 09/05/2025 13:13 ET Workstation ID: [id number] Transcribed By: Self Edit Transcribed Date: 09/05/2025 [...] Signed Date: 09/05/2025 13:13 ET Workstation ID: [id number] Transcribed By: Self Edit Transcribed Date: 09/05/2025 13:11 ET us Glenroy Paez MD IMG XR PROCEDURES Final Result * RHYTHM ECG, REPORT (09/05/2025 11:23 AM EDT) Narrative Glenroy Paez MD - 09/05/2025 11:23 AM EDT Glenroy Paez MD 09/05/2025 2:00 PM ECG Rhythm Interpretation and Report Date/Time: 09/05/2025 11:23 AM Performed by: Glenroy Paez MD Authorized by: Glenroy Paez MD ECG interpreted by ED Physician in the absence of a shoemaking cutter: yes Interpretation: Interpretation: normal Details: Sinus tachycardia with a ventricular rate of 101 bpm. Normal [place], QRS, QTc, axis. No acute ischemic changes us Glenroy Paez MD ECG ORDERABLES Final Result * Troponin I high sensitivity (NOW and then in 1 hour) (09/05/2025 11:20 AM EDT) [facility] High Sensitivity Troponin I 10 <=54 ng/L LAB CHEMISTRY METHOD 09/05/2025 12:11 PM EDT [facility] Blood Venous blood specimen / Unknown Venipuncture / Unknown 09/05/2025 11:20 AM EDT 09/05/2025 11:38 AM EDT Narrative [facility] - 09/05/2025 12:11 PM EDT High levels of biotin in samples may falsely decrease hsTroponin values. Use caution when interpreting hsTroponin results in patients taking biotin who exhibit renal impairment (eGFR <60) or in patients taking more than 20 mg/day of biotin. us Glenroy Paez MD LAB BLOOD ORDERABLES Final Res ult [facility] [address] [place] [address], [place] [phone] * Activated partial thromboplastin time (09/05/2025 11:20 AM EDT) [facility] aPTT 37.4 24.1 - 39.3 sec LAB COAGULATION METHOD 09/05/2025 11:53 AM EDT [facility] Blood Venous blood specimen / Unknown Venipuncture / Unknown 09/05/2025 11:20 AM EDT 09/05/2025 11:38 AM EDT us Glenroy Paez MD LAB BLOOD ORDERABLES Final Res ult Performing Organization Address [facility]/ZIP Co de Phone Number [facility] [address] [place] [address], [place] [phone] * (ABNORMAL) Prothrombin time with INR (09/05/2025 11:20 AM EDT) [facility] Protime 14.3(H) 10.6 - 13.9 sec LAB COAGULATION METHOD 09/05/2025 11:52 AM EDT [facility] INR 1.1 LAB COAGULATION METHOD 09/05/2025 11:52 AM EDT [facility] Blood Venous blood specimen / Unknown Venipuncture / Unknown 09/05/2025 11:20 AM EDT 09/05/2025 11:38 AM EDT us Glenroy Paez MD LAB BLOOD ORDERABLES Final Res ult [facility] [address] [place] [address], [place] [phone] * C-reactive protein (09/05/2025 11:20 AM EDT) [facility] C-Reactive Protein 0.42 <=0.50 mg/dL LAB CHEMISTRY METHOD 09/05/2025 2:40 PM EDT [facility] Blood Venous blood specimen / Unknown Venipuncture / Unknown 09/05/2025 11:20 AM EDT 09/05/2025 11:38 AM EDT us Ayaan Fregoso MD LAB BLOOD ORDERABLES Final Re sult [facility] [address] [place] [address], * Hepatic function panel (09/05/2025 11:20 AM EDT) Total Protein 6.7 6.0 - 8.0 g/dL LAB CHEMISTRY METHOD 09/05/2025 2:40 PM EDT [facility] Albumin 3.6 3.2 - 5.0 g/dL LAB CHEMISTRY METHOD 09/05/2025 2:40 PM T [facility] Total Bilirubin 0.3 0.0 - 1.4 mg/dL LAB CHEMISTRY METHOD 09/05/2025 2:40 PM T [facility] Bilirubin, Direct 0.1 0.0 - 0.3 mg/dL LAB CHEMISTRY METHOD 09/05/2025 2:40 PM T [facility] Bilirubin, Indirect 0.2 0.0 - 1.1 mg/dL LAB CHEMISTRY METHOD 09/05/2025 2:40 PM [facility] ALT (SGPT) 22 10 - 60 unit/L LAB CHEMISTRY METHOD 09/05/2025 2:40 PM [facility] AST (SGOT) 20 10 - 42 unit/L LAB CHEMISTRY METHOD 09/05/2025 2:40 PM [facility] Alkaline Phosphatase 74 42 - 121 unit/L LAB CHEMISTRY METHOD 09/05/2025 2:40 PM [facility] Blood Venous blood specimen / Unknown Venipuncture / Unknown 09/05/2025 11:20 AM EDT 09/05/2025 11:38 AM EDT Ayaan Fregoso MD LAB BLOOD ORDERABLES Final Re sult [facility] [[email or web address] [address] [place] [address], [place] [phone] * ECG 12 lead (09/05/2025 11:11 AM EDT) Ventricular Rate ECG 101 BPM GEMUSE Atrial Rate 101 BPM GEMUSE P-R Interval 180 ms GEMUSE QRS Duration 86 ms GEMUSE Q-T Interval 318 ms GEMUSE QTc 412 ms GEMUSE P Wave Sutton 91 degrees GEMUSE R Sutton 70 degrees GEMUSE T Sutton 31 degrees GEMUSE ECG Interpretation Sinus tachycardia Nonspecific ST abnormality Abnormal ECG When compared with ECG of 05-JUL-2025 21:40, heart rate has increased by [address] abnormality is present Confirmed by Reggie KHAN, VALENCIA ([id number]) on 09/05/2025 1:31:24 PM GEMUSE 09/05/2025 11:1 1 AM EDT 09/05/2025 1:31 PM EDT Glenroy Paez MD ECG ORDERABLES Final Result Performing Organization Address [facility]/ZIP Co de Phone Number GEMUSE * CT [...] Signed Date: 09/05/2025 10:52 ET Workstation ID: [id number] Transcribed By: Self Edit Transcribed Date: 09/05/2025 10:46 ET Narrative 09/05/2025 10:52 AM EDT INDICATION: Generalized weakness, slurred speech, dizziness, headache Technique: Axial images were obtained from the skull base to the vertex without contrast enhancement. Coronal and sagittal reformats obtained. Scanner: [employer] 64 slice VCT Dose reduction technique: [...] enhancement. Coronal and sagittal reformats obtained. Scanner: [employer] 64 slice VCT Dose reduction technique: [...] Signed Date: 09/05/2025 10:52 ET Workstation ID: [id number] Transcribed By: Self Edit Transcribed Date: 09/05/2025 10:46 ET us Gelnroy Paez MD IMG CT PROCEDURES Final Result [...] Signed Date: 09/05/2025 11:59 ET Workstation ID: [id number] Transcribed By: Self Edit Transcribed Date: 09/05/2025 [...] reconstructions performed on a computer workstation. Scanner: [employer] 64slice VCT Dose reduction technique: ASIR (Adaptive [...] reconstructions performed on a computer workstation. Scanner: [employer] 64slice VCT Dose reduction technique: ASIR (Adaptive [...] Patent left posterior communicating artery joins left [id number] to form the left posterior cerebral artery. [...] Signed Date: 09/05/2025 11:59 ET Workstation ID: [id number] Transcribed By: Self Edit Transcribed Date: 09/05/2025 11:46 ET us Glenroy Paez MD IMG CT PROCEDURES Final Result * Vitamin D 25 hydroxy (08/20/2025 4:50 AM EDT) Vit D, 25-Hydroxy 37.7 30.0 - 80.0 ng/mL LAB CHEMISTRY METHOD 08/20/2025 12:17 PM EDT [facility] Blood Venous blood specimen / Unknown Venipuncture / Unknown 08/20/2025 4:50 AM EDT 08/20/2025 9:32 AM EDT us Janice Núñez MD LAB BLOOD ORDERABLES Final Resul t Performing Organization Address [facility]/ZIP Co de Phone Number [facility] [address] [place] [address], [place] [phone] * Thyroid stimulating hormone (08/20/2025 4:50 AM EDT) Pathologist [facility] TSH 2.01 0.40 - 4.00 mcIU/mL LAB CHEMISTRY METHOD 08/20/2025 12:18 PM EDT [facility] Blood Venous blood specimen / Unknown Venipuncture / Unknown 08/20/2025 4:50 AM EDT 08/20/2025 9:32 AM EDT us Janice Núñez MD LAB BLOOD ORDERABLES Final Resul t Performing Organization Address [facility] de Phone Number [facility] [address] [place] [address], [place] [phone] * Hemoglobin A1c (08/20/2025 4:50 AM EDT) Hemoglobin A1C 5.8 <6.5 % LAB CHEMISTRY METHOD 08/20/2025 12:16 PM EDT [facility] Mean Bld Glu Estim. 120 mg/dL LAB CHEMISTRY METHOD 08/20/2025 12:16 PM EDT [facility] Blood Venous blood specimen / Unknown Venipuncture / Unknown 08/20/2025 4:50 AM EDT 08/20/2025 9:32 AM EDT us Janice Núñez MD LAB BLOOD ORDERABLES Final Resul t [facility] [address] [place] [address], * (ABNORMAL) Comprehensive metabolic panel (08/20/2025 4:50 AM EDT) Sodium 140 133 - 145 mmol/L LAB CHEMISTRY METHOD 08/20/2025 11:04 AM [facility] Potassium 3.3(L) 3.5 - 5.5 mmol/L LAB CHEMISTRY METHOD 08/20/2025 11:04 AM [facility] Chloride 102 96 - 110 mmol/L LAB CHEMISTRY METHOD 08/20/2025 11:04 AM [facility] CO2 31 21 - 32 mmol/L LAB CHEMISTRY METHOD 08/20/2025 11:04 AM [facility] Anion Gap 7 3 - 11 LAB CHEMISTRY METHOD 08/20/2025 11:04 AM [facility] Glucose 81 70 - 100 mg/dL LAB CHEMISTRY METHOD 08/20/2025 11:04 AM [facility] BUN 19 5 - 25 mg/dL LAB CHEMISTRY METHOD 08/20/2025 11:04 AM [facility] Creatinine 0.78 0.50 - 1.10 mg/dL LAB CHEMISTRY METHOD 08/20/2025 11:04 AM [facility] eGFR 81 >=60 mL/min/1. 73m2 LAB CHEMISTRY METHOD 08/20/2025 11:04 AM [facility] Comment:Calculation based on the Chronic Kidney Disease Epidemiology Collaboration (CKD-EPI) equation refit without adjustment for race. BUN/Creatinine Ratio 24.4 LAB CHEMISTRY METHOD 08/20/2025 11:04 AM [facility] Calcium 8.4(L) 8.5 - 10.5 mg/dL LAB CHEMISTRY METHOD 08/20/2025 11:04 AM EDT [facility] AST (SGOT) 18 10 - 42 unit/L LAB CHEMISTRY METHOD 08/20/2025 11:04 AM EDT [facility] ALT (SGPT) 29 10 - 60 unit/L LAB CHEMISTRY METHOD 08/20/2025 11:04 AM EDT [facility] Alkaline Phosphatase 78 42 - 121 unit/L LAB CHEMISTRY METHOD 08/20/2025 11:04 AM EDT [facility] Total Protein 5.9(L) 6.0 - 8.0 g/dL LAB CHEMISTRY METHOD 08/20/2025 11:04 AM EDT [facility] Albumin 3.2 3.2 - 5.0 g/dL LAB CHEMISTRY METHOD 08/20/2025 11:[facility] Total Bilirubin 0.1 0.0 - 1.4 mg/dL LAB CHEMISTRY METHOD 08/20/2025 11:04 AM EDT [facility] Blood Venous blood specimen / Unknown Venipuncture / Unknown 08/20/2025 4:50 AM EDT 08/20/2025 9:32 AM EDT Janice Núñez MD LAB BLOOD ORDERABLES Final Resul t [facility] [address] [place] [address], * Colonoscopy (04/27/2024) Colonoscopy No Interpretation , Abstracted Anatomical Region Laterality Modality Other us Historical Provider HEALTH MAINTENANCE Final Result * Depression Screening (04/16/2024) Depression Screening Abstracted us Historical Provider HEALTH MAINTENANCE Final Result * LUIS ARMANDO SCREENING DIGITAL (03/22/2024 8:50 AM EDT) Anatomical Region Laterality Modality Mammography 03/21/2024 3:07 PM EDT Narrative 03/22/2024 8:50 AM EDT [facility] Diagnostic Imaging Department [address] [place] [id number] Patient: DENISA VERDUZCO /Age/Sex: 1955 - 68 - F Unit#: [id number] [facility]Ordering Site[facility] Ordering Physician: YANN MANZANARES [facility] Screening Digital - 03/21/24 - Report Status:Signed EXAM: [facility] Screening Digital EXAM DATE AND TIME: 03/21/2024 3:49 PM HISTORY: Screening. Left breast biopsy in 2016, pathology benign. COMPARISON: 02/16/23, 09/21/19, 09/18/18, 09/15/17 TECHNIQUE: Bilateral digital breast tomosynthesis was performed in the CC and MLO projections. Computer aided detection with [employer] 3D 3.1 was employed. TISSUE DENSITY: b. [...] Procedure Note Erica Treadwell MD - 07/16/2024 [facility] Diagnostic Imaging Department [address] [place] [address] Patient: DAXDENISA D.O.B./Age/Sex: 1955 - 68 - F Unit#: [id number] Location/Status: [facility]/REG CLI Mnemonic/Ordering Site: [facility] Ordering Physician: YANN MANZANARES [facility] Screening Digital - 03/21/24 - Report Status:Signed EXAM: [facility] Screening Digital EXAM DATE AND TIME: 03/21/2024 3:49 PM HISTORY: Screening. Left breast biopsy in 2016, pathology benign. COMPARISON: 02/16/23, 09/21/19, 09/18/18, 09/15/17 TECHNIQUE: Bilateral digital breast tomosynthesis was performed in the CCand MLO projections. Computer aided detection with [employer] 3D 3.1was employed. TISSUE DENSITY: b. There [...] PM EDT Narrative 03/22/2024 8:14 AM EDT [facility] Diagnostic Imaging Department [address] [place] [address] Patient: CHAVAGUERODEINSA /Age/Sex: 1955 - 68 - F Unit#: [id number] Location/Status: [facility]REG CLI [facility]emonic[facility] Ordering Physician: YANN MANZANARES Luis Armando Dex[facility] [...] probability of hip fracture of 7.1%. Code 67868 Dictating Physician: MILTON ORTEGA MD Electronically Signed by: MILTON ORTEGA MD Dic Date/Time: 03/22/24812 Sign date/Time: 03/22/24813 Procedure Note Milton Ortega MD - 07/16/2024 [facility] Diagnostic Imaging Department [address] [place] [address] Patient: DENISA VERDUZCO /Age/Sex: 1955 - 68 - F Unit#: [id number] Location/Status: [facility]/REG CLI Mnemonic[facility] Order[facility] Physician: YANN MANZANARES [facility] Axial Skeleton - 03/21/24 - [...] density of the femurs bilaterally is 0.912 gm/pm4yqdxq is 90% of that of young normals [...] probability of hip fracture of 7.1%. Code 00586 Dictating Physician: MILTON ORTEGA MD Electronically Signed by: MILTON ORTEGA MD Dic Date/Time: 03/22/24812 Sign date/Time: 03/22/24813 Yann Manzanares MD IMG BI PROCEDURES Final Result * Falls Risk Assessment (02/09/2024) Falls Risk Assessment Abstracted Historical Provider HEALTH MAINTENANCE Final Result * Hepatitis C Screening (02/09/2024) Hepatitis C Screening Abstracted Historical Provider HEALTH MAINTENANCE Final Result from Last 3 Months or Most Recently Relevant to Health Maintenance Insurance [employer] Advance Directives Documents on File Type Date Recorded 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
--- OUTSIDE RECORDS SUMMARY | 2025-11-13 10:23 | XMS_ITS | Encounter Summary ---
Author Organization [facility] Address [address] [place] [address] Care Team Providers Care Director Search Name Role Phone Kinjal Barron ELEVATED WORK PLATFORM OPERATOR Primary Care Provid er Encounter Details Date Type Department Care Team (Late st Contact Info) Description 09/17/2025 Lab Requisition [facility] - Main Lab [address] [place] [address] Janice Núñez MD [address] [place], [place] [phone] Malignant neoplasm of unspecified part of left [...] 02/18/2026 10:30 AM EDT Office Visit [facility] Hematology Oncology [address] [place] [phone] Lashanda Mcgill, [address] [place] [address] documented as of this encounter Procedures Procedure [...] mmol/L LAB CHEMISTRY METHOD 09/18/2025 12:44 PM [facility] Potassium 4.1 3.5 - 5.5 mmol/L LAB CHEMISTRY METHOD 09/18/2025 12:44 PM [facility] Chloride 93(L) 96 - 110 mmol/L LAB CHEMISTRY METHOD 09/18/2025 12:44 PM [facility] CO2 39(H) 21 - 32 mmol/L LAB CHEMISTRY METHOD 09/18/2025 12:44 PM [facility] Anion Gap 7 3 - 11 LAB CHEMISTRY METHOD 09/18/2025 12:44 PM [facility] Glucose 64(L) 70 - 100 mg/dL LAB CHEMISTRY METHOD 09/18/2025 12:44 PM [facility] BUN 15 5 - 25 mg/dL LAB CHEMISTRY METHOD 09/18/2025 12:44 PM [facility] Creatinine 0.86 0.50 - 1.10 mg/dL LAB CHEMISTRY METHOD 09/18/2025 12:44 PM [facility] eGFR 72 >=60 mL/min/1. 73m2 LAB CHEMISTRY METHOD 09/18/2025 12:44 PM [facility] Comment:Calculation based on the Chronic Kidney Disease Epidemiology Collaboration (CKD-EPI) equation refit without adjustment for race. BUN/Creatinine Ratio 17.4 LAB CHEMISTRY METHOD 09/18/2025 12:44 PM EDT [facility] Calcium 9.9 8.5 - 10.5 mg/dL LAB CHEMISTRY METHOD 09/18/2025 12:44 PM T [facility] Blood Venous blood specimen / Unknown Venipuncture / Unknown 09/18/2025 5:01 AM EDT 09/18/2025 10:13 AM EDT us Janice Núñez MD LAB BLOOD ORDERABLES Final Resul t [facility] [address] [place] [address], [place] [phone] * (ABNORMAL) Complete blood count (09/18/2025 5:01 AM EDT) WBC 7.6 4.8 - 10.8 K/mcL LAB HEMETOLOGY METHOD 09/18/2025 11:08 AM [facility] RBC 3.60(L) 3.80 - 4.80 M/mcL LAB HEMETOLOGY METHOD 09/18/2025 11:08 AM [facility] Hemoglobin 10.3(L) 11.5 - 16.0 g/dL LAB HEMETOLOGY METHOD 09/18/2025 11:08 AM [facility] Hematocrit 35.4 35.0 - 47.0 % LAB HEMETOLOGY METHOD 09/18/2025 11:08 AM [facility] MCV 97.3 79.0 - 98.0 FL LAB HEMETOLOGY METHOD 09/18/2025 11:08 AM [facility] MCH 28.3 27.0 - 32.0 pcg LAB HEMETOLOGY METHOD 09/18/2025 11:08 AM [facility] MCHC 29.1(L) 32.0 - 37.0 [...] HOSPITAL LAB NRBC 0.0 <1.0 % [facility] 09/18/2025 11:08 AM EDT [facility] NRBC Absolute 0.00 <0.10 K/mcL LAB HEMETOLOGY METHOD 09/18/2025 11:08 AM EDT [facility] Blood Venous blood specimen / Unknown Venipuncture / Unknown 09/18/2025 5:01 AM EDT 09/18/2025 10:13 AM EDT Janice Núñez MD LAB BLOOD ORDERABLES Final Resul t [facility] [address] [place] [address], documented in this encounter Visit Diagnoses Diagnosis Malignant neoplasm of unspecified part of left bronchus or lung (CMS/HCC V24, CMS/HCC V28) Chronic respiratory failure with hypercapnia (CMS/HCC V24, CMS/HCC V28) documented in this encounter Additional Health Concerns Assessment Noted Time PHQ-9 Depression Total Score: 1 07/19/20 25 5:04 PM EDT documented as of this encounter Care Teams Director Search Relationship Specialty Start Date End Date Kinjal Barron FNP [address] [place] [phone] PCP - General Family Medicine 03/06/25 documented as of this encounter
--- OUTSIDE RECORDS SUMMARY | 2025-11-13 10:23 | XMS_ITS | Encounter Summary ---
Author Organization [facility] Address [address] [place] [address] Care Team Providers Care Audio Operator Name Role Phone Kinjal Barron MAIL DELIVERY SUPERVISOR Primary Care Provid er Encounter Details Date Type Department Care Team (Late st Contact Info) Description 10/22/2025 Lab Requisition [facility] - Main Lab [address] [place] [address] Janice Núñez MD [address] [place], [place] [phone] Malignant neoplasm of unspecified part of left [...] [facility] Hematology Oncology [address] [place] [phone] Lashanda Mcgill, [address] [place] [address] documented as of this encounter Procedures Procedure [...] Resul t [facility] [address] [place] [address], * (ABNORMAL) Complete blood count (10/23/2025 7:00 AM EST) WBC 6.2 4.8 - 10.8 K/mcL LAB HEMETOLOGY METHOD 10/23/2025 9:38 AM [facility] RBC 3.00(L) 3.80 - 4.80 M/[facility] LAB HEMETOLOGY METHOD 10/23/2025 9:38 AM WHITE [...] LAB HEMETOLOGY METHOD 10/23/2025 9:[address] [facility] Platelets 384 130 - 400 K/mcL LAB HEMETOLOGY METHOD 10/23/2025 9:[address] [facility] MPV 9.2 7.0 - 11.0 FL LAB HEMETOLOGY METHOD 10/23/2025 9:[address] [facility] NRBC 0.0 <1.0 % LAB HEMETOLOGY METHOD 10/23/2025 9:[address] [facility] NRBC Absolute 0.00 <0.10 K/mcL LAB HEMETOLOGY METHOD 10/23/2025 9:38 AM [facility] Blood Venous blood specimen / Unknown Venipuncture / Unknown 10/23/2025 7:00 AM EST 10/23/2025 9:25 AM EST us Janice Núñez MD LAB BLOOD ORDERABLES Final Resul t [facility] [address] [place] [address], documented in this encounter Visit Diagnoses Diagnosis Malignant neoplasm of unspecified part of left bronchus or lung (CMS/HCC V24, CMS/HCC V28) Chronic respiratory failure with hypercapnia ([facility]/HCC V24, CMS/HCC V28) documented in this encounter Additional Health Concerns Assessment Noted Time PHQ-9 Depression Total Score: 1 07/19/20 25 5:04 PM EDT documented as of this encounter Care Teams Audio Operator Relationship Specialty Start Date End Date Kinjal Barron FNP [address] [place] [phone] PCP - General Family Medicine 03/06/25 documented as of this encounter
--- OUTSIDE RECORDS SUMMARY | 2025-11-13 10:23 | XMS_ITS | Encounter Summary ---
Author Organization [facility] Address [address] [place] [address] Care Team Providers Care Rider Ticket Worker Name Role Phone Kinjal Barron NEWSPAPER COPY EDITOR Primary Care Provid er Encounter Details Date Type Department Care Team (Late st Contact Info) Description 10/08/2025 Lab Requisition [facility] - Main Lab [address] [place] [address] Janice Núñez MD [address] [place], [place] [phone] Malignant neoplasm of unspecified part of left [...] 02/18/2026 10:30 AM EDT Office Visit [facility] Hematology Oncology [address] [place] [phone] Lashanda Mcglil, [address] [place] [address] documented as of this encounter Procedures Procedure [...] mmol/L LAB CHEMISTRY METHOD 10/09/2025 11:49 AM [facility] Potassium 3.6 3.5 - 5.5 mmol/L LAB CHEMISTRY METHOD 10/09/2025 11:49 AM [facility] Chloride 95(L) 96 - 110 mmol/L LAB CHEMISTRY METHOD 10/09/2025 11:49 AM [facility] CO2 42(HH) 21 - 32 mmol/L LAB CHEMISTRY METHOD 10/09/2025 11:49 AM [facility] Anion Gap 3 3 - 11 LAB CHEMISTRY METHOD 10/09/2025 11:49 AM [facility] Glucose 89 70 - 100 mg/dL LAB CHEMISTRY METHOD 10/09/2025 11:49 AM [facility] BUN 12 5 - 25 mg/dL LAB CHEMISTRY METHOD 10/09/2025 11:49 AM [facility] Creatinine 0.78 0.50 - 1.10 mg/dL LAB CHEMISTRY METHOD 10/09/2025 11:49 AM [facility] eGFR 81 >=60 mL/min/1. 73m2 LAB CHEMISTRY METHOD 10/09/2025 11:49 AM [facility] Comment:Calculation based on the Chronic Kidney Disease Epidemiology Collaboration (CKD-EPI) equation refit without adjustment for race. BUN/Creatinine Ratio 15.4 LAB CHEMISTRY METHOD 10/09/2025 11:49 AM [facility] Calcium 8.6 8.5 - 10.5 mg/dL LAB CHEMISTRY METHOD 10/09/2025 11:49 AM [facility] Blood Venous blood specimen / Unknown Venipuncture / Unknown 10/09/2025 5:27 AM EST 10/09/2025 10:52 AM EST us Janice Núñez MD LAB BLOOD ORDERABLES Final Resul t [facility] [address] [place] [address], [place] [phone] * (ABNORMAL) Complete blood count (10/09/2025 5:27 AM EST) WBC 6.7 4.8 - 10.8 K/mcL LAB HEMETOLOGY METHOD 10/09/2025 11:05 AM [facility] RBC 3.10(L) 3.80 - 4.80 M/mcL LAB HEMETOLOGY METHOD 10/09/2025 11:05 AM [facility] Hemoglobin 8.9(L) 11.5 - 16.0 g/dL LAB HEMETOLOGY METHOD 10/09/2025 11:05 AM [facility] Hematocrit 31.3(L) 35.0 - 47.0 % LAB HEMETOLOGY METHOD 10/09/2025 11:05 AM [facility] MCV 100.0(H) 79.0 - 98.0 FL LAB HEMETOLOGY METHOD 10/09/2025 11:05 AM [facility] MCH 28.4 27.0 - 32.0 pcg LAB HEMETOLOGY METHOD 10/09/2025 11:05 AM [facility] MCHC 28.4(L) 32.0 - 37.0 g/dL LAB HEMETOLOGY METHOD 10/09/2025 11:05 AM EST [facility] RDW 16.5(H) 11.0 - 15.0 % LAB HEMETOLOGY METHOD 10/09/2025 11:05 AM [facility] Platelets 415(H) 130 - 400 K/mcL LAB HEMETOLOGY METHOD 10/09/2025 11:05 AM [facility] MPV 9.4 7.0 - 11.0 FL LAB HEMETOLOGY METHOD 10/09/2025 11:05 AM [facility] NRBC 0.0 <1.0 % LAB HEMETOLOGY METHOD 10/09/2025 11:05 AM [facility] NRBC Absolute 0.00 <0.10 K/mcL LAB HEMETOLOGY METHOD 10/09/2025 11:05 AM [facility] Blood Venous blood specimen / Unknown Venipuncture / Unknown 10/09/2025 5:27 AM EST 10/09/2025 10:53 AM EST us Janice Núñez MD LAB BLOOD ORDERABLES Final Resul t [facility] [address] [place] [address], documented in this encounter Visit Diagnoses Diagnosis Malignant neoplasm of unspecified part of left bronchus or lung (CMS/HCC V24, CMS/HCC V28) Chronic respiratory failure with hypercapnia (CMS/HCC V24, CMS/HCC V28) documented in this encounter Additional Health Concerns Assessment Noted Time PHQ-9 Depression Total Score: 1 07/19/20 25 5:04 PM EDT documented as of this encounter Care Teams Rider Ticket Worker Relationship Specialty Start Date End Date Kinjal Barron FNP [address] [place] [phone] PCP - General Family Medicine 03/06/25 documented as of this encounter
--- OUTSIDE RECORDS SUMMARY | 2025-11-13 10:24 | XMS_ITS | Encounter Summary ---
Author Organization [facility] [place] [address] Care Team Providers Care Shrub Planter Name Role Phone Kinjal Barron MEDICAL ESTHETICIAN Primary Care Provid er Encounter Details Date Type Department Care Team (Late st Contact Info) Description 09/01/2025 Lab Requisition [facility] - Main Lab [address] [place] [address] Janice Núñez MD [address] [place], [place] [phone] Frequency of micturition; Fever, unspecified Social History [...] Description 02/18/2026 10:30 AM EDT Office Visit [facility] Hematology Oncology [address] [place] [phone] Lashanda Mcgill, [address] [place] [address] documented as of this encounter Procedures Procedure [...] reflex microscopic (08/31/2025 4:00 PM EDT) Specific [place] Urine 1.008 1.003 - 1.030 LAB URINALYSIS - AUTOMATED METHOD 09/01/2025 10:46 AM [facility] pH, Urine 6.5 5.0 - 8.0 pH LAB URINALYSIS - AUTOMATED METHOD 09/01/2025 10:46 AM [facility] Leukocytes, Urine Trace(A) Negative LAB URINALYSIS - AUTOMATED METHOD 09/01/2025 10:46 AM [facility] Nitrite, Urine Negative Negative LAB URINALYSIS - AUTOMATED METHOD 09/01/2025 10:46 AM [facility] Protein, Urine Negative <=Trace mg/dL LAB URINALYSIS - AUTOMATED METHOD 09/01/2025 10:46 AM [facility] Glucose, Urine Negative Negative mg/dL LAB URINALYSIS - AUTOMATED METHOD 09/01/2025 10:46 AM [facility] Ketones, Urine Negative Negative mg/dL LAB URINALYSIS - AUTOMATED METHOD 09/01/2025 10:46 AM [facility] Urobilinogen, Urine 0.2 0.2 - 1.0 mg/dL LAB URINALYSIS - AUTOMATED METHOD 09/01/2025 10:46 AM [facility] Bilirubin, Urine Negative Negative LAB URINALYSIS - AUTOMATED METHOD 09/01/2025 10:46 AM [facility] Blood, Urine Small(A) Negative LAB URINALYSIS - AUTOMATED METHOD 09/01/2025 10:46 AM [facility] RBC, Urine 1.0 0 - 4 /HPF LAB URINALYSIS - AUTOMATED METHOD 09/01/2025 10:46 AM EDT [facility] WBC, Urine 7.0(H) 0 - 4 /HPF LAB URINALYSIS - AUTOMATED METHOD 09/01/2025 10:46 AM EDT [facility] Squamous Epithelial, Urine 10 0 - 60 /LPF LAB URINALYSIS - AUTOMATED METHOD 09/01/2025 10:46 AM EDT [facility] Bacteria, Urine Negative Negative /HPF LAB URINALYSIS - AUTOMATED METHOD 09/01/2025 10:46 AM EDT [facility] Hyaline Casts, Urine 0.4 0 - 3 /LPF LAB URINALYSIS - AUTOMATED METHOD 09/01/2025 10:46 AM EDT [facility] Urine Urine specimen obtained by clean catch procedure / Unknown Non-blood Collection / Unknown 08/31/2025 4:00 PM EDT 09/01/2025 10:18 AM EDT us Janice Núñez MD LAB URINE ORDERABLES Final Resul t Performing Organization Address City/[facility]/ZIP Co de Phone Number [facility] [address] [place] [address], [place] [phone] * Culture urine (08/31/2025 4:00 PM EDT) Culture, Urine <10,000 CFU/mL gram positive cocci, insignificant count, no further workup 09/02/2025 11:17 AM EDT [facility] Urine Urine specimen obtained by clean catch procedure / Unknown Non-blood Collection / Unknown 08/31/2025 4:00 PM EDT 09/01/2025 10:18 AM EDT us Janice Núñez MD LAB MICROBIOLOGY - GENERAL ORDER KANE Final Result [facility] [address] [place] [address], documented in this encounter Visit Diagnoses Diagnosis [...] documented as of this encounter Care Teams Shrub Planter Relationship Specialty Start Date End Date Kinjal Barron FNP [address] [place] [phone] PCP - General Family Medicine 03/06/25 documented as of this encounter
--- OUTSIDE RECORDS SUMMARY | 2025-11-13 10:24 | XMS_ITS | Data Portability ---
Author Organization [facility] [employer] [facility], Main Office Address [address] [place] [address] Care Team Providers Care New Patient Escort Name Role Phone [facility] OTHER Assessment Encounter Date [...] Organization Details Recorded Time Depressi ve disorder [id number] Active BLAS Rollins [address], [address], [place], [address] , [facility] [employer] 5 10:21:22 Acute exacerba tion of chronic obstruct sophie pulmonar y disease 627047208 Completed 12/20/2024 Not Available [facility] 5 09:41:59 Gastroes ophageal reflux disease 201418347 Completed 12/23/2024 BLAS GONZÁLES [address], [address], [place], [address] , [facility] 5 14:16:13 Bipolar disorder 06458504 Completed 12/20/2024 BLAS GONZÁLES [address], [address], [place], [address] , [facility] 5 14:04:18 Insomnia 578729183 Completed 12/20/2024 Not Available [facility] 5 09:42:54 Tachycar fiordaliza 7130431 Completed 12/23/2024 BLAS GONZÁLES [address], [address], [place], [address] , [facility] 5 13:43:54 Obesity 446895064 Completed 202012/20/2024 Not Available [facility] 5 09:42:44 Dyspnea 472363612 Completed 202012/20/2024 Not Available [facility] 5 09:42:45 Acute on chronic hypercap juan respirat ory failure 55686078644 06 Completed 202012/20/2024 Not Available [facility] 5 09:42:46 Late effect of accident al fall 519798215 Completed 202012/20/2024 Not Available [facility] 5 09:42:47 Unsteady when standing 180664534 Completed 202012/20/2024 Not Available [facility] 5 09:42:48 Syncope and collapse 358596289 Completed 202012/20/2024 Not Available [facility] 5 09:42:50 Acute exacerba tion of chronic obstruct sophie pulmonar y disease 634984073 Completed 202012/20/2024 Not Available [facility] 5 09:42:51 Muscle weakness 18352869 Completed 202012/20/2024 Not Available [facility] 5 09:42:53 Difficul ty walking 618645517 Completed 202012/20/2024 Not Available [facility] 5 09:42:55 Inflamma tory dermatos is 277916331 Completed 202012/20/2024 eczema Not Available [facility] 5 09:42:55 Bronchit is 83679695 Completed 202012/20/2024 Not Available [facility] 5 09:42:56 Acute exacerba tion of chronic obstruct sophie pulmonar y disease 221323781 Completed 202112/20/2024 Not Available [facility] 5 09:42:03 Muscle weakness 29660823 Completed 202112/20/2024 Not Available [facility] 5 09:42:06 Intersti tial lung disease 493373402 Completed 202112/20/2024 Not Available [facility] 5 09:42:11 Metaboli c encephal opathy 18435116 Completed 202112/20/2024 Not Available [facility] 5 09:42:14 Dyspnea 354892553 Completed 202112/20/2024 Not Available [facility] 5 09:42:14 Abnormal posture 24331621 Completed 202112/20/2024 Not Available [facility] 5 09:42:41 Abnormal posture 46482852 Completed 202112/20/2024 Not Available [facility] 5 09:42:42 Constipa tion 62328756 Completed 202112/20/2024 Not Available [facility] 5 09:42:40 Orophary ngeal dysphagi a 47185173 Completed 202112/20/2024 Not Available [facility] 5 09:42:13 Difficul ty walking 752441389 Completed 202212/20/2024 Not Available [facility] 5 09:42:08 Fall Completed 202212/20/2024 Not Available [facility] 5 09:42:12 Senile cataract 11691234 Completed 202212/23/2024 BLAS GONZÁLES [address] , [address], [place], [address] , [facility] 5 13:43:54 Chronic obstruct sophie pulmonar y disease 01563053 Completed 202212/20/2024 BLAS GONZÁLES [address] , [address], [place], [address] , [facility] 5 13:32:43 Disorder of body system 704312574 Completed 202212/20/2024 Not Available [facility] 5 09:42:39 Chronic obstruct sophie pulmonar y disease 14892209 Active 2022 BLAS GONZÁLES [address] , [address], [place], [address] , [facility] 5 13:32:43 Chronic hypoxemi c respirat ory failure 326806835 Completed 202212/20/2024 Not Available [facility] 5 09:42:36 Gastroes ophageal reflux disease without esophagi tis 127648533 Completed 202212/23/2024 BLAS GONZÁLES [address], [address], [place], [address] , [facility] 5 13:43:54 Pain in left foot 81958090256 9107 Completed 202212/20/2024 Not Available [facility] 09:42:34 Essentia l hyperten lisa 53698876 Completed 202212/23/2024 BLAS GONZÁLES [address], [address], [place], [address] , [facility] 13:43:54 Osteopor osis 98858877 Completed 202212/20/2024 Not Available [facility] 5 09:42:52 Localize d, primary osteoart hritis of the ankle and/or foot 639919764 Completed 202212/20/2024 Not Available [facility] 09:42:33 Pleuriti c pain 2156946 Completed 202212/20/2024 Not Available [facility] 5 09:42:32 Fracture of multiple ribs 6502328 Completed 202312/20/2024 Not Available [facility] 5 09:42:01 Fall Completed 202312/20/2024 Not Available [facility] 5 09:42:29 Acute on chronic hypoxemi c respirat ory failure 42097906468 341147 Completed 202312/20/2024 Not Available [facility] 5 09:42:29 Syncope and collapse 727680079 Completed 202312/20/2024 Not Available [facility] 5 09:42:30 Difficul ty walking 837486552 Completed 202312/20/2024 Not Available [facility] 5 09:42:31 Acute exacerba tion of chronic obstruct sophie pulmonar y disease 402173359 Completed 202312/20/2024 Not Available [facility] 5 09:42:00 Acute on chronic hypercap juan respirat ory failure 61891974919 06 Completed 202312/20/2024 Not Available [facility] 5 09:42:03 Acute on chronic hypoxemi c respirat ory failure 51523285609 873748 Completed 202312/20/2024 Not Available [facility] 5 09:42:06 Acute pulmonar y edema 07208136 Completed 202312/20/2024 Not Available [facility] 5 09:42:08 Congesti ve heart failure 60150954 Completed 202312/20/2024 Not Available [facility] 09:42:10 Anxiety disorder 438219316 Active 2023 Not Available [facility] 5 09:42:22 Inflamma tory dermatos is 501622049 Completed 202312/20/2024 eczema Not Available [facility] 5 09:42:23 Unsteady when standing 875824052 Completed 202312/20/2024 Not Available [facility] 5 09:42:24 Muscle weakness 12561044 Completed 202312/20/2024 Not Available [facility] 5 09:42:25 Dyspnea 405503010 Completed 202312/20/2024 Not Available [facility] 5 09:42:25 Difficul ty walking 114574476 Completed 202312/20/2024 Not Available [facility] 5 09:42:26 Somatic syndrome absent 863461914 Completed 202312/23/2024 BLAS GONZÁLES [address], [address], [place], [address] , [facility] 5 13:43:54 Pulmonar y emphysem a 84262717 Completed 202312/23/2024 JOLEEN BISHOP, BLAS [address], [address], [place], [address] , [facility] [employer] 5 13:43:54 Need for personal care assistan ce 41861770687 129905 Completed 202312/20/2024 Not Available [facility] 5 09:42:11 Acidosis 62759016 Completed 202312/20/2024 Not Available [facility] 5 09:42:02 Congesti ve heart failure 48083422 Completed 202312/20/2024 Not Available [facility] 5 09:42:04 Chronic hypercap juan respirat ory failure 199853677 Completed 202312/20/2024 Not Available [facility] 5 09:42:43 Pneumoni a 751482282 Completed 202312/20/2024 Not Available [facility] 5 09:42:09 Muscle weakness 30036439 Completed 202312/20/2024 Not Available [facility] 5 09:42:16 Difficul ty walking 415961919 Completed 202312/20/2024 Not Available [facility] 5 09:42:17 Chronic cor pulmonal e 74221065 Completed 202312/20/2024 Not Available [facility] 5 09:42:17 Atopic dermatit is 92512049 Completed 202312/20/2024 Not Available [facility] 5 09:42:18 Acute exacerba tion of chronic obstruct sophie pulmonar y disease 945597087 Completed 202312/20/2024 Not Available [facility] 5 09:42:19 Congesti ve heart failure 43279142 Active 2023 Not Available [facility] 5 09:42:19 Paroxysm al atrial fibrilla tion 323387406 Active 2023 Not Available [facility] 5 09:42:20 Major depressi on, single episode 81046698 Completed 202312/20/2024 Not Available [facility] 5 09:42:45 Post-tra umatic stress disorder 14502420 Active 2023 Not Available [facility] 5 09:42:20 Dependen ce on enabling machine or device 383150907 Completed 202312/23/2024 IVAP BLAS GONZÁLES [address], [address], [place], [address] , [facility] 5 13:43:54 Dependen ce on suppleme ntal oxygen 37230669908 7 Completed 202312/20/2024 Not Available [facility] 5 09:42:37 Chronic obstruct sophie pulmonar y disease 25416917 Completed 202312/20/2024 Not Available [facility] 5 10:29:12 Acute on chronic hypoxemi c respirat ory failure 25899884595 989746 Completed 202412/20/2024 Not Available [facility] 5 09:41:58 Anemia 539657170 Active 2024 Not Available [facility] 5 09:42:15 Epilepsy 46934560 Completed 202412/23/2024 BLAS GONZÁLES [address], [address], [place], [address] , [facility] 5 13:43:54 Seizure 54237296 Active 2024 BLAS GONZÁLES [address], [address], [place], [address] , [facility] 5 13:33:33 Lung mass 999595159 Active 2024 JOLEEN BISHOP [employer], [address], [place], [address] , [facility] 5 14:00:34 Bipolar disorder 19383116 Active 20[address]ON[address]LES[address], [address], [place], [address] , [facility] 5 14:04:18 Gastroes ophageal reflux disease 495617674 Active [address], [address], [place], [address] , [facility] 5 14:16:13 Problem Notes None recorded. Medical Equipment None Reported. Allergies Allergen ID Allergen Name Allergen Category Reaction Reaction Severity Criticality Documentation Date Start Date Code Code System Note Provider Name and Address Organization Details Recorded Time 161 Haldol medicatio n Not available Not available Not available 09/01/2015 78454 9 RxNorm Mellisa Georges [address], [address], [place], [address], [facility] 5 10:07:26 162 codeine medicatio n Not available Not available Not available 09/01/20152021 2670 RxNorm Restl ess/R jai Not Available [facility] 09:42:59 163 Substance with sulfonami de structure and antibacte rial mechanism of action (substanc e) medicatio n Not available Not available Not available 09/01/2015 99041 8003 SNOMED Mellisa Georges [address], [address], [place], [address], [facility] 5 10:07:26 03407 haloperid ol medicatio n Not available Not available Not available 12/20/20242021 5093 RxNorm Palpa tions Not Available [facility] 5 09:42:59 42131 fluoxetin e medicatio n Not available Not [...] 97 % 103/52 mm[Hg] BLAS GONZÁLES [address], [address], [place], [address], [place] - [employer] 5 14:47:16 Social History Question Answer Notes LastModified by Organizat ion Details LastModified Time Tobacco Smoking Status Current Every Day Smoker Not Available [employer] 09/23/2020 03:13:02 How Many Years Have You Smoked Tobacco? 50 [id number] Information not available 09/23/2020 Sex: Unknown Functional [...] Diagnosis Note 363 BLAS Rollins [facility] on [address] [place] [address] 09/01/2015 10:08:10 11/04/2015 03:49:10 Acute exacerbation of chronic obstructive pulmonary disease 439830155 J44.1 pt will continue her nebs treatments , Spiriva, prednisone taper, theodur, advair. continue on bipap, start PT/OT Gastroesop hageal reflux disease 932960000 K21.9 continue prilosec Bipolar disorder 0556780 4 F31.9 as pt requested we will increase abilify to 15 mg qd from 10 mg, continue lamictal as ordered which is not a change from [facility]. she can also see [facility] for this diagnosis. Insomnia 883921012 G47.0 0 pt has been on trazodone in the past, not now, will try remeron Tachycardia 4187627 R00. 0 pt was started on atenolol for elevated heart rate. is normal rate now. continue to monitor. 450 Mohsen Dos Santos MD Main Office [address], [address] [place] [address] 09/02/2015 17:39:53 10/09/2015 03:48:09 Acute exacerbation of chronic obstructive pulmonary disease 802053887 J44.1 acute on chronic, improving. Unclear why on all her inhalers while she is on oral prednisone and DuoNeb. We will hold all her inhalers until she has stopped her DuoNeb updrafts and her steroids have been tapered off. Tachycardia 0282380 R00. 0 responding to atenolol. Patient feels much improved Bipolar disorder 3534733 4 F31.9 no change her current medication s Chronic ob structive pulmonary disease 16034138 J44.9 chronic history, resume baseline meds once stable [id number] JOLEEN BISHOP, BLAS [place] [address] [place] [address] 12/17/2024 13:30:48 12/25/2024 16:13:18 Chronic obstructive pulmonary disease 68901748 J44.9 sob not r/t exacerbati onbaseline on supplement al O2 at 3 literscont on albuterol, breo neb tx, prednisone ,per discharge summary voriconazo le was mention in med list, unable to verify if she was started on this by pulmonolog y.f/u with pulmonolog ymonitor resp status.RT eval and tx prncont biPAP at hs Congestive heart failure 34394125 I50.9 cont on Lasix 40mg , kcl 10 megcont on metoprolol monitor weight, resp, edema Paroxysmal atrial fibrillation 172590515 I48.0 cont on eliquis , metoprolol monitor for unexplaine d bruising bleeding Seizure 45783336 R56.9 continue Lamictal 200 mg qd and 300 mg at nightmonit or for activityfo llow labs Anemia 915738758 D64.9 symptomati chgb 8.4GI consulted - recommende d to f/u with GI outpatient started on ferrous sulfate dailycont vit b, vit Dfollow labs Lung mass 907975524 R91. 8 11/02/24 ct scan showed small area of consolidat sophie hypodensit y in the left upper lobe slightly increased compared to 11/24/2023 .need to f/u to r/o malignancy . Depressive disorder 2908 9007 F32.A cont on Vilazodone 40 mgcontinue on mirtazapin ehx of suicidal ideat b ion, monitor moods and behavioral changes Bipolar disorder 0927939 4 F31.9 cont on abilify, theophylli ne Gastroesop hageal reflux disease 592796212 K21.9 cont on protonixmo nitor for GI upsetsx if bleeding Osteoporosis 55562995 M8 1.0 cont. on alendronat e, vit D, omega 3 , calcium Allergic rhinitis 468781 04 J30.9 cont fluticason e and mucinex Constipation 00924251 K5 9.00 cont on miralax, senna, lactulose Asthenia 73485566 R53.1 02 dependent, dyspnea with exertionPT /OT eval and treat [id number] FARHAD DAILEY NP-C [facility] [address] [address] 12/25/2024 12:54:10 12/27/2024 14:09:06 Anemia 741801039 D64.9 symptomati chgb 8.4GI consulted - recommende d to f/u with GI outpatient started on ferrous sulfate dailycont vit b, vit Dfollow labs outptf/up with pcp Chronic ob structive pulmonary disease 40332195 J44.9 sob not r/t exacerbati onbaseline on supplement al O2 at 3 literscont on albuterol, breo neb tx, prednisone ,per discharge summary voricontashi mesa was mention in med list, unable to verify if she was started on this by pulmonolog y.f/u with pulmonolog ycont biPAP at hs Congestive heart failure 74152870 I50.9 cont on Lasix 40mg , kcl 10 megcont on metoprolol monitor weight, resp, edema at homef/up with pcp Paroxysmal atrial fibrillation 791733614 I48.0 cont on eliquis , metoprolol monitor bleeding at homef/up with pcp Seizure 82705047 R56.9 continue Lamictal 200 mg qd and 300 mg at nightmonit or for activity at homef/up with pcp Lung mass 831977465 R91. 8 11/02/24 ct scan showed small area of consolidat sophie hypodensit y in the left upper lobe slightly increased compared to 11/24/2023 .need to f/u to r/o malignancy outptf/up with pcp Depressive disorder 3548 9007 F32.A cont on Vilazodone 40 mgcontinue on mirtazapin ef/up with pcp Bipolar disorder 2368497 4 F31.9 cont on abilify, theophylli mars/up with pcp Gastroesop hageal reflux disease 157359349 K21.9 cont on protonixmo nitor for GI upset outptf/up with pcp Osteoporosis 14210555 M8 1.0 cont. on alendronat e, vit D, omega 3 , calciumf/u p with pcp Allergic rhinitis 003330 04 J30.9 cont fluticason e and mucinexf/u p with pcp Constipation 13122031 K5 9.00 cont on miralax, senna, lactulosef /up with pcp Asthenia 29345247 R53.1 02 dependent, dyspnea with exertionco mpleted PT/OT eval and treatf/up with pcp Health Concerns Section Related Observation LastModified by Organization Detai ls LastModified Time None Recorded Concern Status LastModified by Organization Details LastModified Time None Recorded Advance Directives Directive None Recorded Payers Insurance Date Sequence Insurance Name Policy Number Policy Garcia Covered Member ID Garcia Member ID Guarantor Name 11/14/2024 1 [place] [facility] Lluvia Cartagena [id number] Lluvia Cartagena 12/17/2024 2 [place] [facility] Lluvia Cartagena [id number] Lluvia Cartagena 12/25/2024 1 MED[place]ARE B-[place]: [facility] [employer] Lluiva Cartagena [id number] Lluvia Cartagena Notes Date Note Type Note Provider Name and Address Organization Details Recorded Time 09/01/2015 text/html HPI patient admitted to [facility] for COPD exacerbation, acute on chronic resp failure, started on Bipap and atenolol for tachycardia AIDA RollinsP [address], [address], [place], [address], [facility] [employer] 09/01/2015 10:36:55 09/02/2015 text/html HPI 60-year-old female admitted for respiratory infection with negative chest x-ray, acute exacerbation of COPD, but he by hypoxemia and hypercapnia. She required ICU stay for administration of BiPAP. Chest x-ray did not show acute infiltrate. She was treated however with steroids, updraft and antibiotics. History of bipolar disorder as well is active smoker Mohsen Dos Santos MD [address], [address], [place], [address], [facility] 09/02/2015 17:45:59 12/17/2024 text/html ROS as noted in the HPI This is a 69-year-old female patient seen for Transition of care and re-admission. PMH of chronic hypoxic respiratory failure secondary to COPD, chronic CO2 retention, Afib, anxiety/depression, PTSD,obesity, osteoporosis, lung mass,PNA. She was sent to [facility] for evaluation of worsening shortness of breath; medical workup appeared to be at her baseline with the exception of anemia, baseline she usually around 10, labs showed hgb 8.4. GI was consulted and due to no concerns for a GI bleed, patient is recommended to follow up outpatient for EGD/colonoscopy. Per nursing she has been at her baseline since returning frannie, there are no acute concerns. BLAS GONZÁLES [address] [place] [address], [address], [place], [address], [employer] [facility] 12/23/2024 16:38:36 12/25/2024 text/html ROS as noted in the HPI This is a 69-year-old female patient seen for discharge summary. PMH of chronic hypoxic respiratory failure secondary to COPD, chronic CO2 retention, Afib, anxiety/depression, PTSD, obesity, osteoporosis, lung mass,PNA. She was sent to [facility] for evaluation of worsening shortness of breath; [...] plan on finding her a pcp in [place] where they live. Patient is stable for ak home with meds and services. GÉNESIS FERNÁNDEZ [address], [address], [place], [address], [facility] 12/26/2024 07:14:05 OBGyn Episode No OBEpisode recorded.
--- OUTSIDE RECORDS SUMMARY | 2025-11-13 10:24 | XMS_ITS | Encounter Summary ---
Author Organization [facility] Address [address] [place] [address] Care Team Providers Care Information Systems Director Name Role Phone Kinjal Barron CRUSHER SUPERVISOR Primary Care Provid er Encounter Details Date Type Department Care Team (Late st Contact Info) Description 08/20/[address] [facility] - Main Lab [address] [place] [address] Janice Núñez MD [address] [place], [place] [phone] Malignant neoplasm of unspecified part of left bronchus or lung (CMS/HCC V24, CMS/HCC V28); Respiratory failure, unspecified, unspecified whether with hypoxia or hypercapnia (CMS/HCC V24, CMS/HCC V28); Other care home (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 therapy Social History Tobacco Use [...] 02/18/2026 10:30 AM EDT Office Visit [facility] Hematology Oncology [address] [place] [phone] Lashanda Mcgill, [address] [place] [address] documented as of this encounter Procedures Procedure Name Priority Date/Time Associated Diagnosis Comments VITAMIN D 25 HYDROXY Routine 08/20/2025 4:50 AM EDT Malignant neoplasm of unspecified part of left bronchus or lung (CMS/HCC V24, CMS/HCC V28) Respiratory failure, unspecified, unspecified whether with hypoxia or hypercapnia (CMS/HCC V24, CMS/HCC V28) 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 COMPLETE BLOOD COUNT Routine 08/20/2025 4:50 AM EDT Malignant neoplasm of unspecified part of left bronchus or lung (CMS/HCC V24, CMS/HCC V28) Respiratory failure, unspecified, unspecified whether with hypoxia or hypercapnia (CMS/HCC V24, CMS/HCC V28) 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 THYROID STIMULATING HORMONE Routine 08/20/2025 4:50 AM EDT Malignant neoplasm of unspecified part of left bronchus or lung (CMS/HCC V24, CMS/HCC V28) Respiratory failure, unspecified, unspecified whether with hypoxia or hypercapnia (CMS/HCC V24, CMS/HCC V28) Other care home (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 therapy HEMOGLOBIN A1C Routine 08/20/2025 4:50 AM EDT Malignant neoplasm of unspecified part of left bronchus or lung (CMS/HCC V24, CMS/HCC V28) Respiratory failure, unspecified, unspecified whether with hypoxia or hypercapnia (CMS/HCC V24, CMS/HCC V28) 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 FOLATE Routine 08/20/2025 4:50 AM EDT Malignant neoplasm of unspecified part of left bronchus or lung (CMS/HCC V24, CMS/HCC V28) Respiratory failure, unspecified, unspecified whether with hypoxia or hypercapnia (CMS/HCC V24, CMS/HCC V28) 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 VITAMIN B12 Routine 08/20/2025 4:50 AM EDT Malignant neoplasm of unspecified part of left bronchus or lung (CMS/HCC V24, CMS/HCC V28) Respiratory failure, unspecified, unspecified whether with hypoxia or hypercapnia (CMS/HCC V24, CMS/HCC V28) Other care home (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 therapy COMPREHENSIVE METABOLIC PANEL Routine 08/20/2025 4:50 AM EDT Malignant neoplasm of unspecified part of left bronchus or lung (CMS/HCC V24, CMS/HCC V28) Respiratory failure, unspecified, unspecified whether with hypoxia or hypercapnia (CMS/HCC V24, CMS/HCC V28) Other care home (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 therapy documented in this encounter [...] ORDERABLES Final Resul t Performing Organization Address City/[facility]/ZIP Co de Phone Number [facility] [address] [place] [address], [place] [phone] * Vitamin B12 (08/20/2025 4:50 AM EDT) Pathologist [facility] Emergency Department Vitamin B-12 592 250 - 900 pcg/mL LAB CHEMISTRY METHOD 08/20/2025 11:03 AM EDT [facility] Blood Venous blood specimen / Unknown Venipuncture / Unknown 08/20/2025 4:50 AM EDT 08/20/2025 9:32 AM EDT us Janice Núñez MD LAB BLOOD ORDERABLES Final Resul t Performing Organization Address City/[facility]/ZIP Co de Phone Number [facility] [address] [place] [address], [place] [phone] * Hemoglobin A1c (08/20/2025 4:50 AM EDT) [facility] Hemoglobin A1C 5.8 <6.5 % [...] t [facility] [address] [place] [address], [place] [phone] * Thyroid stimulating hormone (08/20/2025 4:50 AM EDT) [facility] TSH 2.01 0.40 - 4.00 mcIU/mL LAB CHEMISTRY METHOD 08/20/2025 12:18 PM EDT [facility] Blood Venous blood specimen / Unknown Venipuncture / Unknown 08/20/2025 4:50 AM EDT 08/20/2025 9:32 AM EDT us Janice Núñez MD LAB BLOOD ORDERABLES Final Resul t [facility] [address] [place] [address], [place] [phone] * (ABNORMAL) Folate (08/20/2025 4:50 AM EDT) [facility] Folate 19.1(H) 2.8 - 17.0 ng/ml LAB CHEMISTRY METHOD 08/20/2025 11:03 AM EDT [facility] Blood Venous blood specimen / Unknown Venipuncture / Unknown 08/20/2025 4:50 AM EDT 08/20/2025 9:32 AM EDT us Janice Núñez MD LAB BLOOD ORDERABLES Final Resul t [facility] [address] [place] [address], [place] [phone] * (ABNORMAL) Comprehensive metabolic panel (08/20/2025 4:50 [...] unit/L LAB CHEMISTRY METHOD 08/20/2025 11:04 AM [facility] ALT (SGPT) 29 10 - 60 unit/L LAB CHEMISTRY METHOD 08/20/2025 11:04 AM EDT [facility] Alkaline Phosphatase 78 42 - 121 unit/L LAB CHEMISTRY METHOD 08/20/2025 11:04 AM T [facility] Total Protein 5.9(L) 6.0 - 8.0 g/dL LAB CHEMISTRY METHOD 08/20/2025 11:04 AM [facility] Albumin 3.2 3.2 - 5.0 g/dL LAB CHEMISTRY METHOD 08/20/2025 11:04 AM [facility] Total Bilirubin 0.1 0.0 - 1.4 mg/dL LAB CHEMISTRY METHOD 08/20/2025 11:04 AM [facility] Blood Venous blood specimen / Unknown Venipuncture / Unknown 08/20/2025 4:50 AM EDT 08/20/2025 9:32 AM EDT us Janice Núñez MD LAB BLOOD ORDERABLES Final Resul t [facility] [address] [place] [address], [place] [phone] * (ABNORMAL) Complete blood count (08/20/2025 4:50 AM EDT) WBC 7.6 4.8 - 10.8 K/mcL LAB HEMETOLOGY METHOD 08/20/2025 9:58 AM EDT [facility] RBC 3.80 3.80 - 4.80 M/mcL LAB HEMETOLOGY METHOD 08/20/2025 9:58 AM [facility] Hemoglobin 10.5(L) 11.5 - 16.0 g/dL LAB HEMETOLOGY METHOD 08/20/2025 9:58 AM [facility] Hematocrit 34.8(L) 35.0 - 47.0 % LAB HEMETOLOGY METHOD 08/20/2025 9:58 AM [facility] MCV 92.1 79.0 - 98.0 FL LAB HEMETOLOGY METHOD 08/20/2025 9:58 AM [facility] MCH 27.8 27.0 - 32.0 pcg LAB HEMETOLOGY METHOD 08/20/2025 9:58 AM [facility] MCHC 30.2(L) 32.0 - 37.0 g/dL LAB HEMETOLOGY METHOD 08/20/2025 9:58 AM [facility] RDW 16.4(H) 11.0 - 15.0 % LAB HEMETOLOGY METHOD 08/20/2025 9:58 AM [facility] Platelets 306 130 - 400 K/mcL LAB HEMETOLOGY METHOD 08/20/2025 9:58 AM [facility] MPV 9.1 7.0 - 11.0 FL LAB HEMETOLOGY METHOD 08/20/2025 9:58 AM [facility] NRBC 0.0 <1.0 % LAB HEMETOLOGY METHOD 08/20/2025 9:58 AM [facility] NRBC Absolute 0.00 <0.10 K/mcL LAB HEMETOLOGY METHOD 08/20/2025 9:58 AM [facility] Blood Venous blood specimen / Unknown Venipuncture / Unknown 08/20/2025 4:50 AM EDT 08/20/2025 9:32 AM EDT us Fahim A Wilton MD LAB BLOOD ORDERABLES Final Resul t [facility] [address] [place] [address], documented in this encounter Visit Diagnoses Diagnosis Malignant neoplasm of unspecified part of left bronchus or lung ([facility] V24, [facility] V28) Respiratory failure, unspecified, unspecified whether with hypoxia or hypercapnia ([facility] V24, [facility] V28) 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
--- OUTSIDE RECORDS SUMMARY | 2025-11-13 10:24 | XMS_ITS | Encounter Summary ---
Author Organization [facility] Address [address] [place] [address] Care Team Providers Care Dude Wrangler Name Role Phone Kinjal Barron ENVIRONMENTAL REMEDIATION ENGINEER Primary Care Provid er Encounter Details Date Type Department Care Team (Late st Contact Info) Description 09/10/2025 Lab Requisition [facility] - Main Lab [address] [place] [address] Janice Núñez MD [address] [place], [place] [phone] Malignant neoplasm of unspecified part of left [...] Assessment Author No 07/06/2025 1:10 AM EDT Chreyle Velazquez RN * Are you blind or [...] Description 02/18/2026 10:30 AM EDT Office Visit [facility] Hematology Oncology [address] [place] [phone] Lashanda Mcgill, [address] [place] [address] documented as of this encounter Procedures Procedure [...] mmol/L LAB CHEMISTRY METHOD 09/11/2025 9:07 AM [facility] Potassium 3.8 3.5 - 5.5 mmol/L LAB CHEMISTRY METHOD 09/11/2025 9:07 AM [facility] Chloride 100 96 - 110 mmol/L LAB CHEMISTRY METHOD 09/11/2025 9:07 AM [facility] CO2 39(H) 21 - 32 mmol/L LAB CHEMISTRY METHOD 09/11/2025 9:07 AM [facility] Anion Gap 3 3 - 11 LAB CHEMISTRY METHOD 09/11/2025 9:07 AM [facility] Glucose 107(H) 70 - 100 mg/dL LAB CHEMISTRY METHOD 09/11/2025 9:07 AM [facility] BUN 9 5 - 25 mg/dL LAB CHEMISTRY METHOD 09/11/2025 9:07 AM [facility] Creatinine 0.82 0.50 - 1.10 mg/dL LAB CHEMISTRY METHOD 09/11/2025 9:07 AM [facility] eGFR 77 >=60 mL/min/1. 73m2 LAB CHEMISTRY METHOD 09/11/2025 9:07 AM [facility] Comment:Calculation based on the Chronic Kidney Disease Epidemiology Collaboration (CKD-EPI) equation refit without adjustment for race. BUN/Creatinine Ratio 11.0 LAB CHEMISTRY METHOD 09/11/2025 9:07 AM EDT [facility] Calcium 9.1 8.5 - 10.5 mg/dL LAB CHEMISTRY METHOD 09/11/2025 9:07 AM EDT [facility] Blood Venous blood specimen / Unknown Venipuncture / Unknown 09/11/2025 5:56 AM EDT 09/11/2025 8:17 AM EDT us Janice Núñez MD LAB BLOOD ORDERABLES Final Resul t [facility] [address] [place] [address], [place] [phone] * (ABNORMAL) Complete blood count (09/11/2025 5:56 AM EDT) WBC 4.7(L) 4.8 - 10.8 K/mcL LAB HEMETOLOGY METHOD 09/11/2025 8:48 AM T [facility] RBC 3.90 3.80 - 4.80 M/mcL LAB HEMETOLOGY METHOD 09/11/2025 8:48 AM [facility] Hemoglobin 10.8(L) 11.5 - 16.0 g/dL LAB HEMETOLOGY METHOD 09/11/2025 8:48 AM [facility] Hematocrit 37.7 35.0 - 47.0 % LAB HEMETOLOGY METHOD 09/11/2025 8:48 AM T [facility] MCV 95.9 79.0 - 98.0 FL LAB HEMETOLOGY METHOD 09/11/2025 8:48 AM [facility] MCH 27.5 27.0 - 32.0 pcg LAB HEMETOLOGY METHOD 09/11/2025 8:48 AM T [facility] MCHC 28.6(L) 32.0 - 37.0 g/dL LAB HEMETOLOGY METHOD 09/11/2025 8:48 AM EDT [facility] RDW 15.9(H) 11.0 - 15.0 % LAB HEMETOLOGY METHOD 09/11/2025 8:48 AM EDT [facility] Platelets 381 130 - 400 K/mcL LAB HEMETOLOGY METHOD 09/11/2025 8:48 AM EDT [facility] MPV 9.6 7.0 - 11.0 FL LAB HEMETOLOGY METHOD 09/11/2025 8:48 AM EDT [facility] NRBC 0.0 <1.0 % LAB HEMETOLOGY METHOD 09/11/2025 8:48 AM EDT [facility] NRBC Absolute 0.00 <0.10 K/mcL LAB HEMETOLOGY METHOD 09/11/2025 8:48 AM EDT [facility] Blood Venous blood specimen / Unknown Venipuncture / Unknown 09/11/2025 5:56 AM EDT 09/11/2025 8:14 AM EDT Janice Núñez MD LAB BLOOD ORDERABLES Final Resul t [facility] [address] [place] [address], documented in this encounter Visit Diagnoses Diagnosis Malignant neoplasm of unspecified part of left bronchus or lung (CMS/HCC V24, CMS/HCC V28) Chronic respiratory failure with hypercapnia (CMS/HCC V24, CMS/HCC V28) documented in this encounter Additional Health Concerns Assessment Noted Time PHQ-9 Depression Total Score: 1 07/19/20 25 5:04 PM EDT documented as of this encounter Care Teams Dude Wrangler Relationship Specialty Start Date End Date Kinjal Barron FNP [address] [place] [phone] PCP - General Family Medicine 03/06/25 documented as of this encounter
--- OUTSIDE RECORDS SUMMARY | 2025-11-13 10:24 | XMS_ITS | Encounter Summary ---
Author Organization [facility] Address [address] [place] [address] Care Team Providers Care Emergency Department Director Name Role Phone Kinjal Barron CERAMIC ENGINEERING PROFESSOR Primary Care Provid er Encounter Details Date Type Department Care Team (Late st Contact Info) Description 09/03/2025 Lab Requisition [facility] - Main Lab [address] [place] [address] Janice Núñez MD [address] [place], [place] [phone] Malignant neoplasm of unspecified part of left [...] 10:43 AM EDT Bhargavi Hanna RN * [place] Suicide Severity Rating Scale (Screener/Recent Self-Report) Question [...] 02/18/2026 10:30 AM EDT Office Visit [facility] Hematology Oncology [address] [place] [phone] Lashanda Mcgill, [address] [place] [address] documented as of this encounter Procedures Procedure [...] mmol/L LAB CHEMISTRY METHOD 09/04/2025 11:05 AM [facility] Potassium 3.5 3.5 - 5.5 mmol/L LAB CHEMISTRY METHOD 09/04/2025 11:05 AM [facility] Chloride 99 96 - 110 mmol/L LAB CHEMISTRY METHOD 09/04/2025 11:05 AM [facility] CO2 34(H) 21 - 32 mmol/L LAB CHEMISTRY METHOD 09/04/2025 11:05 AM [facility] Anion Gap 6 3 - 11 LAB CHEMISTRY METHOD 09/04/2025 11:05 AM [facility] Glucose 88 70 - 100 mg/dL LAB CHEMISTRY METHOD 09/04/2025 11:05 AM [facility] BUN 13 5 - 25 mg/dL LAB CHEMISTRY METHOD 09/04/2025 11:05 AM [facility] Creatinine 0.86 0.50 - 1.10 mg/dL LAB CHEMISTRY METHOD 09/04/2025 11:05 AM [facility] eGFR 72 >=60 mL/min/1. 73m2 LAB CHEMISTRY METHOD 09/04/2025 11:05 AM [facility] Comment:Calculation based on the Chronic Kidney Disease Epidemiology Collaboration (CKD-EPI) equation refit without adjustment for race. BUN/Creatinine Ratio 15.1 LAB CHEMISTRY METHOD 09/04/2025 11:05 AM [facility] Calcium 8.8 8.5 - 10.5 mg/dL LAB CHEMISTRY METHOD 09/04/2025 11:05 AM [facility] Blood Venous blood specimen / Unknown Venipuncture / Unknown 09/04/2025 6:53 AM EDT 09/04/2025 9:34 AM EDT us Janice Núñez MD LAB BLOOD ORDERABLES Final Resul t [facility] [address] [place] [address], * (ABNORMAL) Complete blood count (09/04/2025 6:53 AM EDT) WBC 4.1(L) 4.8 - 10.8 K/mcL LAB HEMETOLOGY METHOD [facility]25 [facility] RBC 4.00 3.80 - 4.80 M/mcL LAB HEMETOLOGY METHOD 09/04/2025 10:12 AM [facility] Hemoglobin 10.9(L) 11.5 - 16.0 g/dL LAB HEMETOLOGY METHOD 09/04/2025 10:[address] [facility] Hematocrit 37.5 35.0 - 47.0 % LAB HEMETOLOGY METHOD 09/04/2025 10:12 AM [facility] MCV 94.5 79.0 - 98.0 FL LAB HEMETOLOGY METHOD 09/04/2025 10:12 AM [facility] MCH 27.5 27.0 - 32.0 pcg LAB HEMETOLOGY METHOD 09/04/2025 10:[address] [facility] MCHC 29.1(L) 32.0 - 37.0 g/dL LAB HEMETOLOGY METHOD 09/04/2025 10:12 AM [facility] RDW 15.9(H) 11.0 - 15.0 % LAB HEMETOLOGY METHOD 09/04/2025 10:12 AM [facility] Platelets 356 130 - 400 K/mcL LAB HEMETOLOGY METHOD 09/04/2025 10:12 AM [facility] MPV 9.4 7.0 - 11.0 FL LAB HEMETOLOGY METHOD 09/04/2025 10:12 AM [facility] NRBC 0.0 <1.0 % LAB HEMETOLOGY METHOD 09/04/2025 10:12 AM [facility] NRBC Absolute 0.00 <0.10 K/mcL LAB HEMETOLOGY METHOD 09/04/2025 10:12 AM [facility] Blood Venous blood specimen / Unknown Venipuncture / Unknown 09/04/2025 6:53 AM EDT 09/04/2025 10:12 AM EDT us Janice Núñez MD LAB BLOOD ORDERABLES Final Resul t [facility] [address] [place] [address], documented in this encounter Visit Diagnoses Diagnosis [...] as of this encounter Care Teams Emergency Department Director Relationship Specialty Start Date End Date Kinjal Barron FNP [address] [place] [phone] PCP - General Family Medicine 03/06/25 documented as of this encounter
--- OUTSIDE RECORDS SUMMARY | 2025-11-13 10:24 | XMS_ITS | Encounter Summary ---
Author Organization [facility] Address [address] [place] [address] Care Team Providers Care Aerial Photograph Interpreter Name Role Phone Kinjal Barron TUNNEL ELASTIC OPERATOR CHAINSTITCH Primary Care Provid er Encounter Details Date Type Department Care Team (Late st Contact Info) Description 08/30/2025 Lab Requisition [facility] - Main Lab [address] [place] [address] Janice Núñez MD [address] [place] [address] Hyperkalemia Social History Tobacco Use Types Packs/Day [...] 02/18/2026 10:30 AM EDT Office Visit [facility] Hematology Oncology [address] [place] [phone] Lashanda Mcgill, DO [address] [place] [address] documented as of this encounter Procedures Procedure Name Priority Date/Time Associated Diagnosis Comments BASIC METABOLIC PANEL Routine 08/30/2025 6:02 AM EDT Hyperkalemia documented in this encounter Results * (ABNORMAL) Basic metabolic panel (08/30/2025 6:02 AM EDT) Sodium 140 133 - 145 mmol/L LAB CHEMISTRY METHOD 08/30/2025 2:28 PM [facility] Potassium 3.5 3.5 - 5.5 mmol/L LAB CHEMISTRY METHOD 08/30/2025 2:28 PM [facility] Chloride 99 96 - 110 mmol/L LAB CHEMISTRY METHOD 08/30/2025 2:28 PM [facility] CO2 35(H) 21 - 32 mmol/L LAB CHEMISTRY METHOD 08/30/2025 2:28 PM [facility] Anion Gap 6 3 - 11 LAB CHEMISTRY METHOD 08/30/2025 2:28 PM [facility] Glucose 86 70 - 100 mg/dL LAB CHEMISTRY METHOD 08/30/2025 2:28 PM [facility] BUN 13 5 - 25 mg/dL LAB CHEMISTRY METHOD 08/30/2025 2:28 PM [facility] Creatinine 0.85 0.50 - 1.10 mg/dL LAB CHEMISTRY METHOD 08/30/2025 2:28 PM [facility] eGFR 73 >=60 mL/min/1. 73m2 LAB CHEMISTRY METHOD 08/30/2025 2:28 PM [facility] Comment:Calculation based on the Chronic Kidney Disease Epidemiology Collaboration (CKD-EPI) equation refit without adjustment for race. BUN/Creatinine Ratio 15.3 LAB CHEMISTRY METHOD 08/30/2025 2:28 PM [facility] Calcium 8.7 8.5 - 10.5 mg/dL LAB CHEMISTRY METHOD 08/30/2025 2:28 PM [facility] Blood Venous blood specimen / Unknown Venipuncture / Unknown 08/30/2025 6:02 AM EDT 08/30/2025 9:37 AM EDT Janice Núñez MD LAB BLOOD ORDERABLES Final Resul t [facility] [place] [facility] [address] [place] [address], documented in this encounter Visit Diagnoses Diagnosis Hyperkalemia Hyperpotassemia documented in this encounter Additional Health Concerns Infection Onset Date Last Indicated Resolved Time Respiratory Rule-Out 09/05/2025 09/05/2025 025 3:59 PM EDT COVID-19 Rule-Out 09/05/2025 09/05/2025 09/05/2025 3:59 PM EDT Assessment Noted Time PHQ-9 Depression Total Score: 1 07/19/20 25 5:04 PM EDT documented as of this encounter Care Teams Aerial Photograph Interpreter Relationship Specialty Start Date End Date Kinjal Barron FNP [address] [place] [phone] PCP - General Family Medicine 03/06/25 documented as of this encounter
--- OUTSIDE RECORDS SUMMARY | 2025-11-13 10:24 | XMS_ITS | Encounter Summary ---
Author Organization [facility] Address [address] [place] [address] Care Team Providers Care Transportation Supervisor Name Role Phone Kinjal Barron SPECIAL AGENT [employer] Primary Care Provid er Encounter Details Date Type Department Care Team (Late st Contact Info) Description 09/09/[address] [facility] - Main Lab [address] [place] [address] Janice Núñez MD [address] [place], [place] [phone] Chronic obstructive pulmonary disease, unspecified (CMS/HCC V24, [...] [facility] H[facility] On[facility] [address] [place] [phone] Lashanda Mcgill, [address] [place] [address] documented as of this encounter Procedures Procedure Name Priority Date/Time Associated Diagnosis Comments BASIC METABOLIC PANEL Routine 09/09/2025 7:29 AM EDT Chronic obstructive pulmonary disease, unspecified ([facility] V24, [facility] V28) Malignant neoplasm of unspecified part of unspecified bronchus or lung ([facility] V24, [facility] V28) documented in this encounter Results * (ABNORMAL) Basic metabolic panel (09/09/2025 7:29 AM EDT) Sodium 141 133 - 145 mmol/L LAB CHEMISTRY METHOD 09/09/2025 2:03 PM [facility] Potassium 3.7 3.5 - 5.5 mmol/L LAB CHEMISTRY METHOD 09/09/2025 2:03 PM [facility] Chloride 98 96 - 110 mmol/L LAB CHEMISTRY METHOD 09/09/2025 2:03 PM [facility] CO2 39(H) 21 - 32 mmol/L LAB CHEMISTRY METHOD 09/09/2025 2:03 PM [facility] Anion Gap 4 3 - 11 LAB CHEMISTRY METHOD 09/09/2025 2:03 PM [facility] Glucose 80 70 - 100 mg/dL LAB CHEMISTRY METHOD 09/09/2025 2:03 PM [facility] BUN 10 5 - 25 mg/dL LAB CHEMISTRY METHOD 09/09/2025 2:03 PM [facility] Creatinine 0.69 0.50 - 1.10 mg/dL LAB CHEMISTRY METHOD 09/09/2025 2:03 PM [facility] eGFR 93 >=60 mL/min/1. 73m2 LAB CHEMISTRY METHOD 09/09/2025 2:03 PM [facility] Comment:Calculation based on the Chronic Kidney Disease Epidemiology Collaboration (CKD-EPI) equation refit without adjustment for race. BUN/Creatinine Ratio 14.5 LAB CHEMISTRY METHOD 09/09/2025 2:03 PM [facility] Calcium 8.8 8.5 - 10.5 mg/dL LAB CHEMISTRY METHOD 09/09/2025 2:03 PM EDT [facility] Blood Venous blood specimen / Unknown Venipuncture / Unknown 09/09/2025 7:29 AM EDT 09/09/2025 12:28 PM EDT us Janice Núñez MD LAB BLOOD ORDERABLES Final Resul t [facility] [address] [place] [address], documented in this encounter Visit Diagnoses Diagnosis Chronic obstructive pulmonary disease, unspecified (CMS/HCC V24, CMS/HCC V28) Malignant neoplasm of unspecified part of unspecified bronchus or lung (CMS/HCC V24, CMS/HCC V28) documented in this encounter Additional Health Concerns Assessment Noted Time PHQ-9 Depression Total Score: 1 07/19/20 5:04 PM EDT documented as of this encounter Care Teams Transportation Supervisor Relationship Specialty Start Date End Date Kinjal Barron FNP [address] [place] [phone] PCP - General Family Medicine 03/06/25 documented as of this encounter
--- OUTSIDE RECORDS SUMMARY | 2025-11-13 10:24 | XMS_ITS | Encounter Summary ---
Author Organization [facility] Address [address] [place] [address] Care Team Providers Care Industrial Engineering Technologist Name Role Phone Kinjal Barron [employer] SUPERVISOR Primary Care Provid er Encounter Details Date Type Department Care Team (Late st Contact Info) Description 08/27/2025 Lab Requisition [facility] - Main Lab [address] [place] [address] Janice Núñez MD [address] [place], [place] [id number] Malignant neoplasm of unspecified part of left [...] Description 02/18/2026 10:30 AM EDT Office Visit [facility] Hematology Oncology [address] [place] [phone] Lashanda Mcgill, [address] [place] [address] documented as of this encounter Procedures Procedure [...] mmol/L LAB CHEMISTRY METHOD 08/28/2025 1:[address] [facility] Potassium 3.4(L) 3.5 - 5.5 mmol/L LAB CHEMISTRY METHOD 08/28/2025 1:[address] [facility] Chloride 97 96 - 110 mmol/L LAB CHEMISTRY METHOD 08/28/2025 1:[address] [facility] CO2 36(H) 21 - 32 mmol/L LAB CHEMISTRY METHOD 08/28/2025 1:[address] [facility] Anion Gap 5 3 - 11 LAB CHEMISTRY METHOD 08/28/2025 1:[address] [facility] Glucose 111(H) 70 - 100 mg/dL LAB CHEMISTRY METHOD 08/28/2025 1:[address] [facility] BUN 15 5 - 25 mg/dL LAB CHEMISTRY METHOD 08/28/2025 1:[address] [facility] Creatinine 0.78 0.50 - 1.10 mg/dL LAB CHEMISTRY METHOD 08/28/2025 1:[address] [facility] eGFR 81 >=60 mL/min/1. 73m2 LAB CHEMISTRY METHOD 08/28/2025 1:[address] [facility] Comment:Calculation based on the Chronic Kidney Disease Epidemiology Collaboration (CKD-EPI) equation refit without adjustment for race. BUN/Creatinine Ratio 19.2 LAB CHEMISTRY METHOD 08/28/2025 1:05 PM EDT [facility] Calcium 8.5 8.5 - 10.5 mg/dL LAB CHEMISTRY METHOD 08/28/2025 1:05 PM EDT [facility] Blood Venous blood specimen / Unknown Venipuncture / Unknown 08/28/2025 9:04 AM EDT 08/28/2025 11:54 AM EDT us Janice Núñez MD LAB BLOOD ORDERABLES Final Resul t [facility] [address] [place] [address], [place] [phone] * (ABNORMAL) Complete blood count (08/28/2025 9:04 AM EDT) WBC 3.8(L) 4.8 - 10.8 K/mcL LAB HEMETOLOGY METHOD 08/28/2025 1:14 PM EDT [facility] RBC 4.20 3.80 - 4.80 M/mcL LAB HEMETOLOGY METHOD 08/28/2025 1:[address] [facility] Hemoglobin 12.0 11.5 - 16.0 g/dL LAB HEMETOLOGY METHOD 08/28/2025 1:14 PM T [facility] Hematocrit 40.8 35.0 - 47.0 % LAB HEMETOLOGY METHOD 08/28/2025 1:[address] [facility] MCV 96.2 79.0 - 98.0 FL LAB HEMETOLOGY METHOD 08/28/2025 1:[address] [facility] MCH 28.3 27.0 - 32.0 pcg LAB HEMETOLOGY METHOD 08/28/2025 1:14 PM EDT [facility] MCHC 29.4(L) 32.0 - 37.0 g/dL LAB HEMETOLOGY METHOD 08/28/2025 1:14 PM EDT [facility] RDW 15.8(H) 11.0 - 15.0 % LAB HEMETOLOGY METHOD 08/28/2025 1:14 PM EDT [facility] Platelets 354 130 - 400 K/mcL LAB HEMETOLOGY METHOD 08/28/2025 1:14 PM EDT [facility] MPV 9.2 7.0 - 11.0 FL LAB HEMETOLOGY METHOD 08/28/2025 1:14 PM EDT [facility] NRBC 0.0 <1.0 % LAB HEMETOLOGY METHOD 08/28/2025 1:14 PM EDT [facility] NRBC Absolute 0.00 <0.10 K/mcL LAB HEMETOLOGY METHOD 08/28/2025 1:14 PM EDT [facility] Blood Venous blood specimen / Unknown Venipuncture / Unknown 08/28/2025 9:04 AM EDT 08/28/2025 11:55 AM EDT us Janice Núñez MD LAB BLOOD ORDERABLES Final Resul t [facility] [address] [place] [address], documented in this encounter Visit Diagnoses Diagnosis [...] documented as of this encounter Care Teams Industrial Engineering Technologist Relationship Specialty Start Date End Date Kinjal Barron FNP [address] [place] [address] PCP - General Family Medicine 03/06/25 documented as of this encounter
== END 2025-11-13 10:00 | disposition home or self-care (01) ==
LOC: HO.HPS 09:15
PROVIDERS: PCP Nurse Practitioner Family; Visit Provider Hospitalist
DX: J43.2 Centrilobular emphysema (principal); R91.1 Solitary pulmonary nodule; J96.11 Chronic respiratory failure with hypoxia; J96.12 Chronic respiratory failure with hypercapnia; G47.33 Obstructive sleep apnea (adult) (pediatric); C34.92 Malignant neoplasm of unspecified part of left bronchus or lung
CPT/HCPCS: 99215

== ENCOUNTER → 2025-11-13 09:14 | Outpatient (BNVA) | payer OTHER, SELFPAY | PROVIDERS: PCP Nurse Practitioner Family; Visit Provider Hospitalist | DX: J43.2 Centrilobular emphysema (principal); J96.11 Chronic respiratory failure with hypoxia; J96.12 Chronic respiratory failure with hypercapnia; R91.1 Solitary pulmonary nodule; G47.33 Obstructive sleep apnea (adult) (pediatric); C34.92 Malignant neoplasm of unspecified part of left bronchus or lung | CPT/HCPCS: 99212 ==

== ENCOUNTER 2025-11-17 10:20 | Inpatient (IN) | payer OTHER, SELFPAY ==
[2025-11-17] VITALS (24 sets, daily range): BP systolic 107–140; BP diastolic 45–67; PULSE 76–105; RESP 17–26; TEMP 36.1–37.7; O2SAT 92–99; BMI 37.4; BMI 36.2
--- NOTE | ~2025-11-17 | CT_ITS ---
CLINICAL HISTORY: Expressive aphasia, rule out stroke, bleed CT head without contrast Comparison: CT/REG/SR - CT HEAD/BRAIN WO IV CON - 11/10/25 04:12 EST Findings: No evidence of acute territorial infarct. There is mild patchy low density in the periventricular and subcortical white matter. There is mild diffuse volume loss noted. No hydrocephalus. No hemorrhage, mass effect, mass lesion or midline shift. No abnormal extra-axial fluid. No calvarial fracture. Paranasal sinuses and mastoid air cells are clear. Impression: No acute intracranial process. Mild chronic changes as detailed. This document has been electronically signed by: Dimitry Coelho MD on 11/17/2025 10:43:21
--- NOTE | ~2025-11-17 | MR_ITS ---
CLINICAL HISTORY: aphasia MR Brain without gadolinium Comparison: 11/17/2025 Findings: No restricted diffusion. No intra-axial mass or hemorrhage. No midline shift. No hydrocephalus. Vascular flow voids are intact. Orbital contents are unremarkable. The sinuses and mastoid air cells are clear. No focal bone lesion. IMPRESSION: Unremarkable brain MRI. This document has been electronically signed by: Erick Godinez MD on 11/18/2025 18:23:18
--- NOTE | 2025-11-17 10:24 | ECG_ITS ---
Test Reason : STROKE Blood Pressure : */* mmHG Vent. Rate : 102 BPM Atrial Rate : 102 BPM P-R Int : 130 ms QRS Dur : 86 ms QT Int : 296 ms P-R-T Axes : 86 81 51 degrees QTcB Int : 385 ms Sinus tachycardia with Premature supraventricular complexes Possible Left atrial enlargement Borderline ECG When compared with ECG of 10-Nov-2025 01:22, ST no longer depressed in Lateral leads Referred By: Ksah Hutchinson Electronically Signed By: ROGERIO JOHNSON MD
--- NOTE | 2025-11-17 10:33 | ED.NEUROSD ---
HPI - Neuro Symptoms/Deficit General Chief Complaint: Stroke Stated Complaint: MILD APHASIA Time Seen by Provider: 11/17/25 10:24 Source: patient Mode of arrival: EMS Limitations: no limitations History of Present Illness ED Provider: Dr. Kash Hutchinson HPI Narrative: 70-year-old female with a history of COPD on 3 L, CHF, lung Ca who was brought to emergency department for evaluation of difficulty with word finding and difficulty with operating her phone. Information EMS. Patient's last well-known time was between 1919 100 hours yesterday. This morning at around 07:00 patient was found to have difficulty speaking and finding words. She was also having difficulty operating her phone. Patient resides at [facility] and staff was concerned about this change and had her brought to emergency department for evaluation. EMS reports that the patient does take Eliquis. I did evaluate the patient on the EMS stretcher, patient did seem to have difficulty with word finding but speech was comprehensible, she followed simple commands without any difficulty. Patient was made a stroke protocol and sent directly radiology for CT head. Related Data Home Medications ?Medication ?Instructions ?Recorded ?Confirmed alendronate 70 mg tablet (Fosamax) 70 mg PO DOMINGUEZ 02/09/21 10/23/25 mirtazapine 15 mg tablet 7.5 mg PO BEDTIME 09/10/21 10/23/25 sennosides 8.6 mg tablet (Senokot) 8.6 mg PO BEDTIME 09/10/21 10/23/25 Oxygen Home Use 04/15/23 10/22/24 nebulizers 04/15/23 10/22/24 pantoprazole 40 mg tablet,delayed 40 mg PO DAILY@0630 06/21/24 10/23/25 release docusate sodium 100 mg capsule 100 mg PO DAILY PRN Constipation 07/27/24 10/23/25 aripiprazole 10 mg tablet 10 mg PO DAILY 08/20/24 10/23/25 mineral oil 1 appl topical Q48H PRN eczema 08/20/24 10/23/25 omega 3-iaq-zde-fish oil 1,000 mg 1 cap PO BID 08/20/24 10/23/25 (120 mg-180 mg) capsule (Fish Oil) apixaban 5 mg tablet (Eliquis) 5 mg PO BID 09/26/24 10/23/25 gabapentin 100 mg capsule 100 mg PO BID 01/18/25 10/23/25 ferrous gluconate 324 mg (38 mg 324 mg PO DAILY 07/25/25 10/23/25 iron) tablet calcium carbonate (Oyster Shell 500 mg PO BID 08/06/25 10/23/25 Calcium) cholecalciferol (vitamin D3) 25 25 mcg PO DAILY 08/06/25 10/23/25 mcg (1,000 unit) tablet (Vitamin D3) fluticasone furoate 200 1 ea inhalation DAILY dyspnea 08/06/25 10/23/25 mcg-vilanterol 25 mcg/dose inhalation powder (Breo Ellipta) furosemide 40 mg tablet 40 mg PO DAILY 08/06/25 10/23/25 lactulose 10 gram/15 mL oral 15 ml PO DAILY PRN constipation 08/06/25 10/23/25 solution (Enulose) lamotrigine 200 mg tablet 200 mg PO BID 08/06/25 10/23/25 vilazodone 40 mg tablet 40 mg PO DAILY 08/06/25 10/23/25 L.acidophilus-bif.longum 15 mg (1 1 cap PO DAILY 10/23/25 10/23/25 billion cell)capsule,delayed release (Probiotic Pearls) acetaminophen 325 mg tablet 650 mg PO Q4H PRN Fever/Pain 10/23/25 10/23/25 acetazolamide 250 mg tablet 250 mg PO MOWEFR 10/23/25 10/23/25 aspirin 81 mg tablet 81 mg PO DAILY 10/23/25 10/23/25 atorvastatin 40 mg tablet 40 mg PO DAILY 10/23/25 10/23/25 bisacodyl 10 mg rectal suppository 10 mg WA DAILY PRN Constipation 10/23/25 10/23/25 guaifenesin 600 mg tablet, 1,200 mg PO BID PRN Congestion 10/23/25 10/23/25 extended release 12 hr guaifenesin 600 mg tablet, 600 mg PO BID 10/23/25 10/23/25 extended release 12 hr loratadine 10 mg tablet (Claritin) 10 mg PO DAILY 10/23/25 10/23/25 magnesium hydroxide 400 mg/5 mL 30 ml PO DAILY PRN Constipation 10/23/25 10/23/25 oral suspension (Milk of Magnesia) metoprolol succinate 100 mg 100 mg PO DAILY 10/23/25 10/23/25 tablet,extended release 24 hr prednisone 10 mg tablet 10 mg PO DAILY 10/23/25 10/23/25 Held on 10/25/25. Instructions: Resume on 11/08/25. Resume after prolonged prednisone taper sodium phosphates 19 gram-7 118 ml WA DAILY PRN Constipation 10/23/25 10/23/25 gram/197 mL enema (Fleet Enema Extra) tramadol 50 mg tablet 50 mg PO Q6H PRN Pain 10/23/25 10/23/25 trazodone 50 mg tablet 12.5 mg PO BEDTIME Sleep 10/23/25 10/23/25 Previous Rx's ?Medication ?Instructions ?Recorded fluticasone propionate 50 1 spray intranasal DAILY Allergies 02/02/25 mcg/actuation nasal 30 days #16 grams spray,suspension montelukast 10 mg tablet 10 mg PO BEDTIME 90 days #90 tabs 02/02/25 ipratropium bromide 0.02 % 2.5 ml inhalation QID #300 mL 04/10/25 solution for inhalation albuterol sulfate 2.5 mg/3 mL 2.5 mg (3 mL) inhalation QID #360 06/19/25 (0.083 %) solution for nebulization mL albuterol sulfate 90 mcg/actuation 2 puff inhalation Q6H PRN 06/19/25 aerosol inhaler Respiratory Distress #8.5 grams theophylline 300 mg 300 mg PO Q12H #60 tabs 07/04/25 tablet,extended release,12 hr doxycycline hyclate 100 mg capsule 100 mg PO BID 5 days #10 caps 10/25/25 prednisone 20 mg tablet See Taper PO BID 7 days #28 tabs 10/25/25 doxycycline monohydrate 100 mg 100 mg PO BID 7 days #14 caps 11/10/25 capsule prednisone 50 mg tablet 50 mg PO DAILY 5 days #5 tabs 11/10/25 Allergies Allergy/AdvReac Type Severity Reaction Status Date / Time fluoxetine Allergy Severe Irritable Verified 11/17/25 10:41 codeine (Codeine) Allergy Intermediate RESTLESS/RA Verified 11/17/25 10:41 SH haloperidol (Haldol) Allergy Intermediate Palpitation Verified 11/17/25 10:41 s Review of Systems Review of Systems: Yes all other systems are reviewed and are negative PMFSH Past Medical History Medical History Lung cancer Pulmonary nodule 1 cm or greater in diameter Lung mass RITA (obstructive sleep apnea) Cor pulmonale Rib fractures Pulmonary nodule Tubular adenoma of colon (~2006) Osteopenia (~2012) Bronchopneumonia Chest pain Chronic respiratory alkalosis ILD (interstitial lung disease) CO2 retention Acute on chronic respiratory failure with hypoxia and hypercapnia Bipolar depression Eczema Limb swelling Insomnia Bronchitis Vasomotor rhinitis COPD (chronic obstructive pulmonary disease) Chronic respiratory failure Fall Acute metabolic encephalopathy Acute and chronic respiratory failure with hypercapnia Surgical History History of carpal tunnel surgery (~2000) History of ventral hernia repair (~2003) History of left inguinal hernia repair (~1995) History of tracheostomy (~2016) History of cataract surgery (~2018) History of colonoscopy Family History Family History Other Hypertension Social History Social History Household Members: Other Household Members Other:: Daughter, son-in-law, grandchildren Housing: [facility] Housing Other:: snf Are you a primary career services assistant to a significant other at home: No Do you presently have visiting nurse or other home services: No Alcohol intake: former Patient Tobacco Use Status: Former Tobacco user Tobacco use type: Cigarette Years Smoked: 20+ years e-Cigarette/Vaping Use: Never Used Second Hand Smoke Exposure: No Advance Directives: Yes Advance Directives on File: Yes Advance Directives Date on File: 11/30/21 Do you have a plan to hurt others: No Plan service: No Current occupational status: disabled Physical Exam Vital Signs: Vital Signs: Last Vital Signs Temp 99.9 F 11/17/25 11:10 Pulse 98 11/17/25 12:19 Resp 18 11/17/25 12:19 BP 130/55 L 11/17/25 12:19 Pulse Ox 93 11/17/25 12:19 O2 Del Method Nasal Cannula 11/17/25 12:19 O2 Flow Rate 5 11/17/25 12:19 Oxygen Flow Rate 5 11/17/25 10:32 BMI result Body Mass Index 37.4 Exam: General: Awake, alert in no distress Head: Normocephalic, atraumatic EENT: PERRL, sclera and conjunctiva are normal, mouth with no erythema or exudates Neck: Supple, no adenopathy Lung: breath sounds symmetric, no wheezing, no rales and no rhonchi Chest: symmetric movement, nontender Heart: regular rate and rhythm, normal S1, S2 no murmurs or rubs Abdomen: soft, non-tender, nondistended, normal bowel sounds Rectal: Brown to reddish stool strongly Hemoccult positive Back: no vertebral tenderness, no CVAT Extremities: no deformities, moves all extremities symmetrically, no edema Neuro: General: ?Awake, alert, oriented, normal speech Cranial nerves: ?Cranial nerves 2-12 ?intact Strength: ?Moves all extremities symmetrically, strength 5/5 Cerebellar: ?Good unloys-wt-gwkb-to-finger, good rapid finger movement, normal heel to lopez Sensory: Decreased pinprick sensation left upper extremity compared to right upper extremity, otherwise symmetric throughout Psych: Pleasant, cooperative Medical Decision Making Medical Decision Making MDM Narrative: 70-year-old female with a history of COPD on 3 L, CHF, lung Ca who was brought to emergency department for evaluation of difficulty with word finding and difficulty with operating her phone. Information EMS: Patient's last well-known time was between 1900 and 20:00 hours yesterday. This morning at around 07:00 patient was found to have difficulty speaking and finding words. She was also having difficulty operating her phone. Patient resides at [facility] and staff was concerned about this change from her baseline and sent the patient for evaluation.. EMS reports that the patient does take Eliquis. I did evaluate the patient on the EMS stretcher, patient did seem to have difficulty with word finding but speech was comprehensible. Neurologic exam was otherwise nonfocal except for slight decreased noxious mi on the left upper extremity compared to the right. Differential diagnosis: ?Includes but is not limited to stroke, TIA, intracranial bleed, anemia, Course: 11:00 CT head without contrast revealed no acute abnormalities. Patient's NIH stroke scale is 2 and therefore I doubt that the patient has a large vessel occlusion as the cause of her symptoms. Patient's last well-known time was at least 15 hours prior to evaluation therefore she is outside of the TNK window. 12:07 CT scan of the head without IV contrast revealed no acute bleed or stroke, patient does have mild patchy white matter disease and mild diffuse volume loss. My independent interpretation patient's laboratory evaluation is as follows: Normocytic anemia with a an H&H of 6.8 and 25.0 with a an MCV of 91.2. Patient has chronic normocytic anemia however this is significantly lower than previous values with a downward trend since 08/09/2025. Coags were elevated with PT INR of 16.9 and 1.4 and PTT of 35.4-most likely secondary to Eliquis. Serum bicarb elevated 41-chronic. High sensitive troponin elevated 9.9-similar elevations in the past. Urinalysis positive for blood. COVID-19, influenza and RSV tests were negative. Patient's stool was reddish-brown and strongly Hemoccult positive. I did order type and screen in 1 unit of packed red blood cells to be transfused. At this time, I am not sure if the patient has had a stroke or if her symptoms are related to her progressive anemia. I will discuss admission with the covering hospitalist. 12:42 I did discuss the patient's presentation over tiger text with the covering hospitalist, physician research study assistant Alberto Whiting and the patient will be admitted for further treatment. Differential Diagnosis Differential Diagnoses: The differential diagnosis associated with the presentation includes (See above) Admission/Observation Consideration of admission/observation: Escalation of care including admission/observation considered (Yes) Consult Healthcare Provider Management of the patient was discussed with: Hospitalist Lab Data MDM Lab Attestation statement: I reviewed the patient's lab results. 11/17/25 11:06 11/17/25 11:06 Labs: Lab Results 11/17/25 11/17/25 11/17/25 Range/Units 11:06 11:11 12:20 WBC 7.9 (4.8-10.8) X10*3/uL RBC 2.74 L (4.20-5.50) X10*6/uL Hgb 6.8 L* (12.0-16.0) g/dl Hct 25.0 L (37.0-47.0) % MCV 91.2 (80.0-98.0) fL MCH 24.8 L (27.0-33.0) pg MCHC 27.2 L (31.0-35.0) g/dl RDW 16.1 H (11.0-16.0) % Plt Count 384 (160-400) X10*3/uL MPV 8.5 L (9.4-12.3) fL Immature Gran % (Auto) 0.8 H (0.0-0.4) % Neut % (Auto) 83.9 H (45-73) % Lymph % (Auto) 4.2 L (20-40) % Casey % (Auto) 7.6 (2-11) % Eos % (Auto) 3.1 (0-4) % Baso % (Auto) 0.4 (0-2) % Lymph # (Auto) 0.3 L (1.2-4.9) X10*3/uL Casey # (Auto) 0.6 (0.1-1.2) X10*3/uL Eos # (Auto) 0.3 (0.0-0.4) X10*3/uL Baso # (Auto) 0.0 (0.0-0.2) X10*3/uL Abs Immat Gran (auto) 0.06 H (0.00-0.03) X10*3/uL Absolute Neuts (auto) 6.7 (2.0-8.3) x10*3/uL Absolute Nucleated RBC 0.000 (0.0-0.012) X10*3/uL Nucleated RBC % (auto) 0.0 (0.0-0.2) /100WBC Smear Tech's Comments VERIFIED PT 16.9 H (11.2-13.5) SEC INR 1.4 H (0.9-1.1) APTT 35.4 H (26.7-34.1) SEC Sodium 142 (135-145) mmol/L Potassium 3.5 (3.3-5.1) mmol/L Chloride 93 L (96-108) mmol/L Carbon Dioxide 41 H* (22-29) mmol/L Anion Gap 12 (12-20) BUN 15 (9-16) mg/dL Creatinine 0.87 (0.5-1.4) mg/dL Estim Creat Clear Calc 60.5 Estimated GFR > 60 Random Glucose 81 (60-115) mg/dL Calcium 8.8 D (8.4-10.2) mg/dL Troponin I High Sens 9.9 (<3.5-17.0) ng/L Triglycerides 63 (<150) mg/dL Cholesterol 144 (<200) mg/dL LDL Cholesterol, Calc 57 (<100) mg/dL HDL Cholesterol 75 (>40) mg/dL Urine Color Yellow Urine Appearance Clear Urine pH 6.5 (5.0-9.0) Ur Specific [place] 1.010 (1.005-1.025) Urine Protein Trace (Neg-Trace) mg/dL Urine Glucose (UA) Negative (Negative) mg/dL Urine Ketones Negative (Negative) mg/dL Urine Blood Small (1+) H (Negative) Urine Nitrite Negative (Negative) Ur Leukocyte Esterase Negative (Negative) Urine RBC 0-2 (0-2) /HPF Urine WBC 0-5 (0-5) /HPF Ur Squamous Epith Cells 0-2 (0-2) /HPF Urine Bacteria None Seen (None Seen) Hyaline Casts 0-2 (0-2) /LPF Stool Occult Blood POSITIVE (NEGATIVE) Crossmatch 11/17/25 Range/Units 12:25 WBC (4.8-10.8) X10*3/uL RBC (4.20-5.50) X10*6/uL Hgb (12.0-16.0) g/dl Hct (37.0-47.0) % MCV (80.0-98.0) fL MCH (27.0-33.0) pg MCHC (31.0-35.0) g/dl RDW (11.0-16.0) % Plt Count (160-400) X10*3/uL MPV (9.4-12.3) fL Immature Gran % (Auto) (0.0-0.4) % Neut % (Auto) (45-73) % Lymph % (Auto) (20-40) % Casey % (Auto) (2-11) % Eos % (Auto) (0-4) % Baso % (Auto) (0-2) % Lymph # (Auto) (1.2-4.9) X10*3/uL Casey # (Auto) (0.1-1.2) X10*3/uL Eos # (Auto) (0.0-0.4) X10*3/uL Baso # (Auto) (0.0-0.2) X10*3/uL Abs Immat Gran (auto) (0.00-0.03) X10*3/uL Absolute Neuts (auto) (2.0-8.3) x10*3/uL Absolute Nucleated RBC (0.0-0.012) X10*3/uL Nucleated RBC % (auto) (0.0-0.2) /100WBC Smear Tech's Comments PT (11.2-13.5) SEC INR (0.9-1.1) APTT (26.7-34.1) SEC Sodium (135-145) mmol/L Potassium (3.3-5.1) mmol/L Chloride (96-108) mmol/L Carbon Dioxide (22-29) mmol/L Anion Gap (12-20) BUN (9-16) mg/dL Creatinine (0.5-1.4) mg/dL Estim Creat Clear Calc Estimated GFR Random Glucose (60-115) mg/dL Calcium (8.4-10.2) mg/dL Troponin I High Sens (<3.5-17.0) ng/L Triglycerides (<150) mg/dL Cholesterol (<200) mg/dL LDL Cholesterol, Calc (<100) mg/dL HDL Cholesterol (>40) mg/dL Urine Color Urine Appearance Urine pH (5.0-9.0) Ur Specific [place] (1.005-1.025) Urine Protein (Neg-Trace) mg/dL Urine Glucose (UA) (Negative) mg/dL Urine Ketones (Negative) mg/dL Urine Blood (Negative) Urine Nitrite (Negative) Ur Leukocyte Esterase (Negative) Urine RBC (0-2) /HPF Urine WBC (0-5) /HPF Ur Squamous Epith Cells (0-2) /HPF Urine Bacteria (None Seen) Hyaline Casts (0-2) /LPF Stool Occult Blood (NEGATIVE) Crossmatch See Detail Independent Interpretation I performed an independent interpretation of an: EKG Interpretation: My independent interpretation patient's 12 EKG done on 11/17/2025 at 10:29 hours is as follows: EKG has a wandering baseline which makes it difficult to interpret. Sinus tachycardia with a rate of 102, normal WA interval, QRS duration QTC interval, no ST segment elevation, no ST segment depression, no significant T-wave abnormalities. Compared to EKG dated 11/10/2025 no significant change. Radiology Impression Discussion of test interpretation with radiology: I discussed test interpretation with the radiologist and I have reviewed the radiologist's reading. Independent Historian CT head without contrast Comparison: CT/REG/SR - CT HEAD/BRAIN WO IV CON - 11/10/25 04:12 EST Findings: No evidence of acute territorial infarct. There is mild patchy low density in the periventricular and subcortical white matter. There is mild diffuse volume loss noted. No hydrocephalus. No hemorrhage, mass effect, mass lesion or midline shift. No abnormal extra-axial fluid. No calvarial fracture. Paranasal sinuses and mastoid air cells are clear. Impression: No acute intracranial process. Mild chronic changes as detailed. This document has been electronically signed by: Dimitry Coelho MD on 11/17/2025 10:43:21 NIH Stroke Scale Internal: Initial- Upon Arrival Level of Consciousness: Alert Level of Consciousness Questions: Answers both questions correctly Level of Consciousness Commands: Performs both tasks correctly Best Gaze: Normal Visual: No visual loss Facial Palsy: Normal Motor Arm (Right): No drift Motor Arm (Left): No drift Motor Leg (Right): No drift Motor Leg (Left): No drift Limb Ataxia: Absent Sensory: Mild to moderate sensory loss Best Language: Mild to moderate aphasia (Occasional air with word finding) Dysarthia: Normal Extinction and Inattention: No abnormality Score: 2 Critical Care Time Critical Care Time Critical Care Time: Yes Total Critical Care Time: 45 Attestation: Critical Care: The patient was critically ill with a high probability of imminent or life threatening deterioration. I spent greater than 30 minutes of discontinuous time evaluating the patient,delivering critical care at the bedside, discussing and evaluating pertinent data with consultants. Critical care time does not include time spent performing separately billable procedures or teaching. Total time spent performing critical care was 45 minutes. Discharge Plan Discharge Prescriptions: No Action fluticasone propionate 50 mcg/actuation spray,suspension 1 spray intranasal DAILY 30 Days Qty: 16 11RF montelukast 10 mg tablet 10 mg PO BEDTIME 90 Days Qty: 90 3RF ipratropium bromide 0.02 % solution 2.5 ml inhalation QID Qty: 300 11RF albuterol sulfate 2.5 mg /3 mL (0.083 %) solution for nebulization 2.5 mg inhalation QID Qty: 360 11RF albuterol sulfate 90 mcg/actuation HFA aerosol inhaler 2 puff INHALATION Q6H PRN (Reason: Respiratory Distress) Qty: 8.5 11RF theophylline 300 mg tablet extended release 12 hr 300 mg PO Q12H Qty: 60 8RF alendronate [Fosamax] 70 mg Tablet 70 mg PO DOMINGUEZ mirtazapine 15 mg tablet 7.5 mg PO BEDTIME docusate sodium 100 mg capsule 100 mg PO DAILY PRN (Reason: Constipation) pantoprazole 40 mg tablet,delayed release (DR/EC) 40 mg PO DAILY@0630 mineral oil Oil 1 appl TOPICAL Q48H PRN (Reason: eczema) Rx Instructions: apply to both outer ears topically aripiprazole 10 mg tablet 10 mg PO DAILY omega 8-elq-kbm-fish oil [Fish Oil] 1,000 mg (120 mg-180 mg) Capsule 1 cap PO BID Eliquis 5 mg tablet 5 mg PO BID furosemide 40 mg tablet 40 mg PO DAILY lamotrigine 200 mg tablet 200 mg PO BID lactulose [Enulose] 10 gram/15 mL solution 15 ml PO DAILY PRN (Reason: constipation) vilazodone 40 mg tablet 40 mg PO DAILY fluticasone furoate-vilanterol [Breo Ellipta] 200-25 mcg/dose blister with device 1 ea inhalation DAILY calcium carbonate [Oyster Shell Calcium] 500 mg calcium (1,250 mg) Tablet 500 mg PO BID cholecalciferol (vitamin D3) [Vitamin D3] 25 mcg (1,000 unit) Tablet 25 mcg PO DAILY atorvastatin 40 mg tablet 40 mg PO DAILY acetaminophen 325 mg Tablet 650 mg PO Q4H PRN (Reason: Fever/Pain) prednisone 10 mg Tablet 10 mg PO DAILY trazodone 50 mg Tablet 12.5 mg PO BEDTIME metoprolol succinate 100 mg tablet extended release 24 hr 100 mg PO DAILY acetazolamide 250 mg tablet 250 mg PO MOWEFR tramadol 50 mg Tablet 50 mg PO Q6H PRN (Reason: Pain) magnesium hydroxide [Milk of Magnesia] 400 mg/5 mL Suspension 30 ml PO DAILY PRN (Reason: Constipation) bisacodyl 10 mg Suppository 10 mg WA DAILY PRN (Reason: Constipation) aspirin 81 mg Tablet 81 mg PO DAILY loratadine [Claritin] 10 mg Tablet 10 mg PO DAILY Fleet Enema Extra 19-7 gram/197 mL Enema 118 ml WA DAILY PRN (Reason: Constipation) L.acidophilus-Bifido.longum [Probiotic Pearls] 15 mg (1 billion cell) Capsule,Delayed Release(Dr/Ec) 1 cap PO DAILY guaifenesin 600 mg Tablet Extended Release 12hr 1,200 mg PO BID PRN (Reason: Congestion) guaifenesin 600 mg Tablet Extended Release 12hr 600 mg PO BID doxycycline hyclate 100 mg capsule 100 mg PO BID 5 Days Qty: 10 0RF prednisone 20 mg tablet See Taper PO BID 7 Days Qty: 28 0RF Taper: Prednisone 40 mg daily for 5 Days and 0 Hour 30 mg daily for 5 Days and 0 Hour 20 mg daily for 5 Days and 0 Hour 10 mg daily for 5 Days and 0 Hour Rx Instructions: 40 mg daily for 5 Days; 30 mg daily for 5 Days; 20 mg daily for 5 Days; 10 mg daily for 5 Days doxycycline monohydrate 100 mg capsule 100 mg PO BID 7 Days Qty: 14 0RF prednisone 50 mg tablet 50 mg PO DAILY 5 Days Qty: 5 0RF sennosides [Senokot] 8.6 mg tablet 8.6 mg PO BEDTIME Rx Instructions: Hold for loose stools gabapentin 100 mg capsule 100 mg PO BID (DME) nebulizers [facility] See Rx Instructions .Route Rx Instructions: As directed (DME) Oxygen Home Use Kit See Rx Instructions .Route Rx Instructions: As directed ferrous gluconate 324 mg (38 mg iron) tablet 324 mg PO DAILY Print Language: Hungarian
[2025-11-17 11:14] LABS: Hematocrit 25.0 % (37.0-47.0); Imm Gran Abs Auto 0.06 X10*3/uL (0.00-0.03); Imm Gran Pct Auto 0.8 % (0.0-0.4); Lymphocytes Absolute Auto 0.3 X10*3/uL (1.2-4.9); Mean Corpuscular HGB Conc 27.2 g/dl (31.0-35.0); Mean Corpuscular Hemoglobin 24.8 pg (27.0-33.0); Mean Corpuscular Volume 91.2 fL (80.0-98.0); NRBC Abs Auto 0.000 X10*3/uL (0.0-0.012); NRBC Pct Auto 0.0 /100WBC (0.0-0.2); Platelet Count 384 X10*3/uL (160-400); Red Blood Count 2.74 X10*6/uL (4.20-5.50); White Blood Count 7.9 X10*3/uL (4.8-10.8)
--- NOTE | 2025-11-17 11:15 | PC.NURSE ---
Pt omar from [facility] for sudden onset stroke like s/s starting approx 0700am. Upon arrival to ED pt a/ox3, slow to respond to questions but answers appropriately. Difficulty findings words, follows commands. Equal strength bilaterally, no facial droop/drift noted. Denies numbness/tingling. +Thinners on eliquis for hx of paroxysmal afib. Port power port accessed R chest- labs obtained and sent. Normal sinus rhythm on hall monitor- denies CP. Respirations even and unlabored, RR mid 20s- wears 5L O2 at baseline, maintaining O2 sats >92% on 5L. Vitals cycling q15 to monitor, call marroquin within reach, all needs met at this time.
[2025-11-17 11:18] LABS: Appearance Urine Clear; Glucose Urine UA Negative (Negative); PH 6.5 (5.0-9.0); Specific Gravity - Urine 1.010 (1.005-1.025); UMIC TRIGGER UACC YES
[2025-11-17 11:19] LABS: INTERNATIONAL NORM RATIO 1.4 (0.9-1.1); Prothrombin Time 16.9 SEC (11.2-13.5)
[2025-11-17 11:20] LABS: Hemoglobin 6.8 g/dl (12.0-16.0)
--- OUTSIDE RECORDS SUMMARY | 2025-11-17 11:21 | XMS_ITS | Encounter Summary ---
Author Organization [facility] Address [address] [place] [address] Care Team Providers Care Maintenance Worker House Trailer Name Role Phone Kinjal Barron PIN SETTER Primary Care Provid er Encounter Details Date Type Department Care Team (Late st Contact Info) Description 12/11/2024 Lab Requisition [facility] - Main Lab [address] [place] [address] Glenroy Goff MD [address] [facility] [address], [phone] Chronic obstructive pulmonary disease, unspecified (CMS/HCC [...] 10:30 AM EDT Office Visit [facility] Hematology Oncology [address] [place] [id number] Lashanda Mcgill, DO [address] [place] [address] documented as of this encounter Procedures Procedure Name Priority Date/Time Associated Diagnosis Comments COMPLETE BLOOD COUNT Routine 12/11/2024 6:30 AM EST Chronic obstructive pulmonary disease, unspecified (CMS/HCC) BASIC METABOLIC PANEL Routine 12/11/2024 6:30 AM EST Chronic obstructive pulmonary disease, unspecified ([facility]) documented in this encounter Results * [...] LAB CHEMISTRY METHOD 12/11/2024 11:11 AM EST [facility] eGFR 76 >=60 [...] Resul t [facility] [address] [place] [address], * (ABNORMAL) Complete blood count (12/11/2024 6:30 [...] LAB HEMETOLOGY METHOD 12/11/2024 11:11 AM EST [facility] MCHC 27.9(L) 32.0 - 37.0 g/dL LAB HEMETOLOGY METHOD 12/11/2024 11:11 AM [facility] RDW 15.7(H) 11.0 - 15.0 % LAB HEMETOLOGY METHOD 12/11/2024 11:11 AM EST [facility] Platelets 399 130 [...] Resul t [facility] [address] [place] [address], documented in this encounter Visit Diagnoses Diagnosis [...] as of this encounter Care Teams Maintenance Worker House Trailer Relationship Specialty Start Date End Date Kinjal Barron FNP [address] [place] [address] PCP - General Family Medicine 03/06/25 documented as of this encounter
--- OUTSIDE RECORDS SUMMARY | 2025-11-17 11:21 | XMS_ITS ---
Author Organization [facility] Address [address] [place] [address] Phone Care Team Providers Care Mailroom Personnel Name Role Phone Rabia Barrongeovanny Jacqueline BARREL ASSEMBLY INSPECTOR Primary Care Provid er Active Problems Problem [...] CPAP 11/08/2017 Overview (09/12/2024): Life supply/cpap [facility] Polysomnogram Trilogy treatment study. 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/HCC V24, [facility] V28) Treatment Medications Current Day (Day 1 [...]
--- OUTSIDE RECORDS SUMMARY | 2025-11-17 11:21 | XMS_ITS | Encounter Summary ---
Author Organization [facility] Address [address] [place] [address] Care Team Providers Care Spread Cutter Name Role Phone Kinjal Barron LICENSING DIRECTOR Primary Care Provid er Encounter Details Date Type Department Care Team (Late st Contact Info) Description 11/09/[address] [facility] - Main Lab [address] [place] [address] Janice Núñez MD [address] [place], [place] [phone] Chronic obstructive pulmonary disease, unspecified (CMS/HCC V24, [...] 02/18/2026 10:30 AM EDT Office Visit [facility] Hematology Oncology [address] [place] [phone] Lashanda Mcgill, DO [address] [place] [address] documented as of this encounter Procedures Procedure [...] LAB CHEMISTRY METHOD 11/12/2024 4:30 PM EST [facility] Comment:Calculation based on the Chronic Kidney Disease Epidemiology Collaboration (CKD-EPI) equation refit without adjustment for race. BUN/Creatinine Ratio 11.2 LAB CHEMISTRY METHOD 11/12/2024 4:30 PM EST [facility] Calcium 9.3 8.5 - 10.5 mg/dL LAB CHEMISTRY METHOD 11/12/2024 4:[address] [facility] Blood Venous blood specimen / Unknown Venipuncture / Unknown 11/12/2024 8:41 AM EST 11/12/2024 11:35 AM EST us Janice Núñez MD LAB BLOOD ORDERABLES Final Resul t [facility] [address] [place] [address], * (ABNORMAL) Complete blood count (11/12/2024 8:41 [...] LAB HEMETOLOGY METHOD 11/12/2024 11:55 AM EST [facility] MCHC 28.4(L) 32.0 - [...] 11:[address] [facility] NRBC Absolute 0.00 <0.10 K/mcL LAB HEMETOLOGY METHOD 11/12/2024 11:[address] [facility] Blood Venous blood specimen / Unknown Venipuncture / Unknown 11/12/2024 8:41 AM EST 11/12/2024 11:35 AM EST us Janice Núñez MD LAB BLOOD ORDERABLES Final Resul t [facility] [address] [place] [address], documented in this encounter Visit Diagnoses Diagnosis [...] documented as of this encounter Care Teams Spread Cutter Relationship Specialty Start Date End Date Kinjal Barron FNP [address] [place] [phone] PCP - General Family Medicine 03/06/25 documented as of this encounter
--- OUTSIDE RECORDS SUMMARY | 2025-11-17 11:21 | XMS_ITS | Encounter Summary ---
Author Organization [facility] Address [address] [place] [address] Care Team Providers Care Curatorial Assistant Name Role Phone Kinjal Barron ACCOUNT RETENTION REPRESENTATIVE Primary Care Provid er Encounter Details Date Type Department Care Team (Late st Contact Info) Description 11/20/2024 Lab Requisition [facility] - Main Lab [address] [place] [address] Janice Núñez MD [address] [place], [place] [phone] Chronic obstructive pulmonary disease, unspecified (CMS/HCC V24, [...] Description 02/18/2026 10:30 AM EDT Office Visit [facility] Hematology Oncology [address] [place] [phone] Lashanda Mcgill, DO [address] [place] [address] documented as of this encounter Procedures Procedure [...] Resul t [facility] [address] [place] [address], * (ABNORMAL) Complete blood count (11/20/2024 6:24 [...] LAB HEMETOLOGY METHOD 11/20/2024 10:10 AM EST [facility] MCHC 27.9(L) 32.0 - 37.0 g/dL LAB HEMETOLOGY METHOD 11/20/2024 10:10 AM [facility] RDW 14.9 11.0 - 15.0 % LAB HEMETOLOGY METHOD 11/20/2024 10:10 AM EST [facility] Platelets 512(H) 130 - [...] Resul t [facility] [address] [place] [address], documented in this encounter Visit Diagnoses Diagnosis [...] documented as of this encounter Care Teams Curatorial Assistant Relationship Specialty Start Date End Date Kinjal Barron FNP [address] [place] [phone] PCP - General Family Medicine 03/06/25 documented as of this encounter
--- OUTSIDE RECORDS SUMMARY | 2025-11-17 11:21 | XMS_ITS | Encounter Summary ---
Author Organization [facility] Address [address] [place] [address] Care Team Providers Care Air Carrier Inspector Name Role Phone Kinjal Barron CORPORATE LIBRARIAN Primary Care Provid er Encounter Details Date Type Department Care Team (Late st Contact Info) Description 11/05/2025 Lab Requisition [facility] - Main Lab [address] [place] [address] Janice Núñez MD [address] [place], [place] [phone] Malignant neoplasm of unspecified part of left [...] Description 02/18/2026 10:30 AM EDT Office Visit [facility] Hematology Oncology [address] [place] [phone] Lashanda Mcgill, [address] [place] [address] documented as of this encounter Procedures Procedure [...] 133 - 145 mmol/L 11/06/2025 12:07 PM [facility] Potassium 3.5 3.5 - 5.5 mmol/L 11/06/2025 12:07 PM [facility] Chloride 91(L) 96 - 110 mmol/L 11/06/2025 12:07 PM [facility] CO2 >40(HH) 21 - 32 mmol/L 11/06/2025 12:07 PM [facility] Anion Gap <8 3 - 11 11/06/2025 12:07 PM [facility] Glucose 79 70 - 100 mg/dL 11/06/2025 12:07 PM [facility] BUN 12 5 - 25 mg/dL 11/06/2025 12:07 PM [facility] Creatinine 0.97 0.50 - 1.10 mg/dL 11/06/2025 12:07 PM [facility] eGFR 63 >=60 mL/min/1. 73m2 11/06/2025 12:07 PM [facility] Comment:Calculation based on the Chronic Kidney Disease Epidemiology Collaboration (CKD-EPI) equation refit without adjustment for race. BUN/Creatinine Ratio 12.4 11/06/2025 12:07 PM [facility] Calcium 8.8 8.5 - 10.5 mg/dL 11/06/2025 12:07 PM [facility] Blood Venous blood specimen / Unknown Venipuncture / Unknown 11/06/2025 7:41 AM EST 11/06/2025 10:49 AM EST us Janice Núñez MD LAB BLOOD ORDERABLES Final Resul t [facility] [address] [place] [address], * (ABNORMAL) Complete blood count (11/06/2025 7:41 AM EST) WBC 7.5 4.8 - 10.8 K/mcL LAB HEMETOLOGY METHOD 11/06/2025 11:10 AM [facility] RBC 3.00(L) 3.80 - 4.80 M/mcL LAB HEMETOLOGY METHOD 11/06/2025 11:10 AM [facility] Hemoglobin 7.8(L) 11.5 - 16.0 g/dL LAB HEMETOLOGY METHOD 11/06/2025 11:10 AM [facility] Hematocrit 27.6(L) 35.0 - 47.0 % LAB HEMETOLOGY METHOD 11/06/2025 11:10 AM [facility] MCV 92.3 79.0 - 98.0 FL LAB HEMETOLOGY METHOD 11/06/2025 11:10 AM [facility] MCH 26.1(L) 27.0 - 32.0 pcg LAB HEMETOLOGY METHOD 11/06/2025 11:10 AM [facility] MCHC 28.3(L) 32.0 - 37.0 g/dL LAB HEMETOLOGY METHOD 11/06/2025 11:10 AM [facility] RDW 15.9(H) 11.0 - 15.0 % LAB HEMETOLOGY METHOD 11/06/2025 11:10 AM EST [facility] Platelets 465(H) 130 - 400 K/mcL LAB HEMETOLOGY METHOD 11/06/2025 11:10 AM EST [facility] MPV 9.8 7.0 - 11.0 FL LAB HEMETOLOGY METHOD 11/06/2025 11:10 AM EST [facility] NRBC 0.0 <1.0 % LAB HEMETOLOGY METHOD 11/06/2025 11:10 AM EST [facility] NRBC Absolute 0.00 <0.10 K/mcL LAB HEMETOLOGY METHOD 11/06/2025 11:10 AM [facility] Blood Venous blood specimen / Unknown Venipuncture / Unknown 11/06/2025 7:41 AM EST 11/06/2025 10:49 AM EST us Janice Núñez MD LAB BLOOD ORDERABLES Final Resul t [facility] [address] [place] [address], documented in this encounter Visit Diagnoses Diagnosis Malignant neoplasm of unspecified part of left bronchus or lung (CMS/HCC V24, CMS/HCC V28) Chronic respiratory failure with hypercapnia (CMS/HCC V24, CMS/HCC V28) documented in this encounter Additional Health Concerns Assessment Noted Time PHQ-9 Depression Total Score: 1 07/19/20 25 5:04 PM EDT documented as of this encounter Care Teams Air Carrier Inspector Relationship Specialty Start Date End Date Kinjal Barron FNP [address] [place] [phone] PCP - General Family Medicine 03/06/25 documented as of this encounter
--- OUTSIDE RECORDS SUMMARY | 2025-11-17 11:21 | XMS_ITS | Encounter Summary ---
Author Organization [facility] Address [address] [place] [address] Care Team Providers Care Police Specialist Name Role Phone Kinjal Barron WELFARE ADMINISTRATOR Primary Care Provid er Encounter Details Date Type Department Care Team (Late st Contact Info) Description 11/02/2024 Lab Requisition [facility] - Main Lab [address] [place] [address] Janice Núñez MD [address] [place], [place] [phone] Chronic obstructive pulmonary disease, unspecified (CMS/HCC V24, [...] Description 02/18/2026 10:30 AM EDT Office Visit [facility] Hematology Oncology [address] [place] [phone] Lashanda Mcgill, DO [address] [place] [address] documented as of this encounter Procedures Procedure Name Priority Date/Time Associated Diagnosis Comments COMPLETE BLOOD COUNT Routine 11/02/2024 6:47 AM EST Chronic obstructive pulmonary disease, unspecified (CMS/HCC) BASIC METABOLIC PANEL Routine 11/02/2024 6:47 AM EST Chronic obstructive pulmonary disease, unspecified ([facility]/HCC) documented in this encounter Results * [...] LAB CHEMISTRY METHOD 11/02/2024 11:[address] [facility] Comment:Calculation based on the Chronic Kidney Disease Epidemiology Collaboration (CKD-EPI) equation refit without adjustment for race. BUN/Creatinine Ratio 14.0 LAB CHEMISTRY METHOD 11/02/2024 11:[address] [facility] Calcium 8.9 8.5 - 10.5 mg/dL LAB CHEMISTRY METHOD 11/02/2024 11:22 AM [facility] Blood Venous blood specimen / Unknown Venipuncture / Unknown 11/02/2024 6:47 AM EST 11/02/2024 9:35 AM EST us Janice Núñez MD LAB BLOOD ORDERABLES Final Resul t [facility] [address] [place] [address], * (ABNORMAL) Complete blood count (11/02/2024 6:47 [...] LAB HEMETOLOGY METHOD 11/02/2024 10:[address] [facility] MCHC 29.0(L) 32.0 - 37.0 [...] 10:51 AM [facility] NRBC Absolute 0.00 <0.10 K/mcL LAB HEMETOLOGY METHOD 11/02/2024 10:51 AM [facility] Blood Venous blood specimen / Unknown Venipuncture / Unknown 11/02/2024 6:47 AM EST 11/02/2024 9:35 AM EST us Janice Núñez MD LAB BLOOD ORDERABLES Final Resul t [facility] [address] [place] [address], documented in this encounter Visit Diagnoses Diagnosis [...] documented as of this encounter Care Teams Police Specialist Relationship Specialty Start Date End Date Kinjal Barron FNP [address] [place] [phone] PCP - General Family Medicine 03/06/25 documented as of this encounter
--- OUTSIDE RECORDS SUMMARY | 2025-11-17 11:21 | XMS_ITS | Encounter Summary ---
Author Organization [facility] Address [address] [place] [address] Care Team Providers Care Passenger Conductor Name Role Phone Kinjal Barron CLOTHES PRESSER Primary Care Provid er Encounter Details Date Type Department Care Team (Late st Contact Info) Description 10/27/2024 Lab Requisition [facility] - Main Lab [address] [place] [address] Janice Núñez MD [address] [place], [place] [phone] Chronic obstructive pulmonary disease, unspecified (CMS/HCC V24, [...] [facility] Hematology Oncology [address] [place] [phone] Lashanda Mcgill, DO [address] [place] [address] documented as of this encounter Procedures Procedure Name Priority Date/Time Associated Diagnosis Comments COMPLETE BLOOD COUNT Routine 10/29/2024 8:00 AM EST Chronic obstructive pulmonary disease, unspecified (CMS/HCC) BASIC METABOLIC PANEL Routine 10/29/2024 8:00 AM EST Chronic obstructive pulmonary disease, unspecified ([facility]/HCC) documented in this encounter Results * (ABNORMAL) Basic metabolic panel (10/29/2024 8:00 AM EST) Sodium 138 133 - 145 mmol/L LAB CHEMISTRY METHOD 10/29/2024 2:01 PM [facility] Potassium 3.6 3.5 - 5.5 mmol/L LAB CHEMISTRY METHOD 10/29/2024 2:01 PM [facility] Chloride 91(L) 96 - 110 mmol/L LAB CHEMISTRY METHOD 10/29/2024 2:01 PM [facility] CO2 40(H) 21 - 32 mmol/L LAB CHEMISTRY METHOD 10/29/2024 2:01 PM [facility] Anion Gap 7 3 - 11 LAB CHEMISTRY METHOD 10/29/2024 2:01 PM [facility] Glucose 86 70 - 100 mg/dL LAB CHEMISTRY METHOD 10/29/2024 2:01 PM [facility] BUN 15 5 - 25 mg/dL LAB CHEMISTRY METHOD 10/29/2024 2:01 PM [facility] Creatinine 0.89 0.50 - 1.10 mg/dL LAB CHEMISTRY METHOD 10/29/2024 2:01 PM [facility] eGFR 70 >=60 mL/min/1. 73m2 LAB CHEMISTRY METHOD 10/29/2024 2:01 PM [facility] Comment:Calculation based on the Chronic Kidney Disease Epidemiology Collaboration (CKD-EPI) equation refit without adjustment for race. BUN/Creatinine Ratio 16.9 LAB CHEMISTRY METHOD 10/29/2024 2:01 PM [facility] Calcium 9.3 8.5 - 10.5 mg/dL LAB CHEMISTRY METHOD 10/29/2024 2:01 PM [facility] Blood Venous blood specimen / Unknown Venipuncture / Unknown 10/29/2024 8:00 AM EST 10/29/2024 11:30 AM EST us Janice Núñez MD LAB BLOOD ORDERABLES Final Resul t [facility] [address] [place] [address], * (ABNORMAL) Complete blood count (10/29/2024 8:00 AM EST) WBC 6.3 4.8 - 10.8 K/mcL LAB HEMETOLOGY METHOD 10/29/2024 12:10 PM [facility] RBC 3.70(L) 3.80 - 4.80 M/mcL LAB HEMETOLOGY METHOD 10/29/2024 12:10 PM [facility] Hemoglobin 10.1(L) 11.5 - 16.0 g/dL LAB HEMETOLOGY METHOD 10/29/2024 12:10 PM [facility] Hematocrit 35.2 35.0 - 47.0 % LAB HEMETOLOGY METHOD 10/29/2024 12:10 PM [facility] MCV 94.1 79.0 - 98.0 FL LAB HEMETOLOGY METHOD 10/29/2024 12:10 PM [facility] MCH 27.0 27.0 - 32.0 pcg LAB HEMETOLOGY METHOD 10/29/2024 12:10 PM EST [facility] MCHC 28.7(L) 32.0 - 37.0 g/dL LAB HEMETOLOGY METHOD 10/29/2024 12:10 PM [facility] RDW 14.5 11.0 - 15.0 % LAB HEMETOLOGY METHOD 10/29/2024 12:10 PM [facility] Platelets 504(H) 130 - 400 K/mcL LAB HEMETOLOGY METHOD 10/29/2024 12:10 PM [facility] MPV 9.3 7.0 - 11.0 FL LAB HEMETOLOGY METHOD 10/29/2024 12:10 PM [facility] NRBC 0.0 <1.0 % LAB HEMETOLOGY METHOD 10/29/2024 12:10 PM [facility] NRBC Absolute 0.00 <0.10 K/mcL LAB HEMETOLOGY METHOD 10/29/2024 12:10 PM [facility] Blood Venous blood specimen / Unknown Venipuncture / Unknown 10/29/2024 8:00 AM EST 10/29/2024 11:30 AM EST us Janice Núñez MD LAB BLOOD ORDERABLES Final Resul t [facility] [address] [place] [address], documented in this encounter Visit Diagnoses Diagnosis [...] documented as of this encounter Care Teams Passenger Conductor Relationship Specialty Start Date End Date Kinjal Barron FNP [address] [place] [phone] PCP - General Family Medicine 03/06/25 documented as of this encounter
--- OUTSIDE RECORDS SUMMARY | 2025-11-17 11:21 | XMS_ITS | Encounter Summary ---
Author Organization [facility] Address [address] [place] [address] Care Team Providers Care Mems Engineer Name Role Phone Kinjal Barron WALL MAN Primary Care Provid er Encounter Details Date Type Department Care Team (Late st Contact Info) Description 11/03/2024 Lab Requisition [facility] - Main Lab [address] [place] [address] Janice Núñez MD [address] [place], [place] [phone] Chronic obstructive pulmonary disease, unspecified (CMS/HCC V24, [...] [facility] [address] [place] [phone] Lashanda Mcgill, DO [address] [place] [address] documented as of this encounter Procedures Procedure Name Priority Date/Time Associated Diagnosis Comments COMPLETE BLOOD COUNT Routine 11/05/2024 8:13 AM EST Chronic obstructive pulmonary disease, unspecified (CMS/HCC) BASIC METABOLIC PANEL Routine 11/05/2024 8:13 AM EST Chronic obstructive pulmonary disease, unspecified ([facility]/HCC) documented in this encounter Results * (ABNORMAL) Basic metabolic panel (11/05/2024 8:13 AM EST) Sodium 141 133 - 145 mmol/L LAB CHEMISTRY METHOD 11/05/2024 11:51 AM [facility] Potassium 4.1 3.5 - 5.5 mmol/L LAB CHEMISTRY METHOD 11/05/2024 11:51 AM [facility] Chloride 98 96 - 110 mmol/L LAB CHEMISTRY METHOD 11/05/2024 11:51 AM [facility] CO2 43(HH) 21 - 32 mmol/L LAB CHEMISTRY METHOD 11/05/2024 11:51 AM [facility] Anion Gap 0(L) 3 - 11 LAB CHEMISTRY METHOD 11/05/2024 11:51 AM [facility] Glucose 95 70 - 100 mg/dL LAB CHEMISTRY METHOD 11/05/2024 11:51 AM [facility] BUN 12 5 - 25 mg/dL LAB CHEMISTRY METHOD 11/05/2024 11:51 AM [facility] Creatinine 0.97 0.50 - 1.10 mg/dL LAB CHEMISTRY METHOD 11/05/2024 11:51 AM [facility] eGFR 63 >=60 mL/min/1. 73m2 LAB CHEMISTRY METHOD 11/05/2024 11:51 AM [facility] Comment:Calculation based on the Chronic Kidney Disease Epidemiology Collaboration (CKD-EPI) equation refit without adjustment for race. BUN/Creatinine Ratio 12.4 LAB CHEMISTRY METHOD 11/05/2024 11:51 AM [facility] Calcium 9.0 8.5 - 10.5 mg/dL LAB CHEMISTRY METHOD 11/05/2024 11:51 AM [facility] Blood Venous blood specimen / Unknown Venipuncture / Unknown 11/05/2024 8:13 AM EST 11/05/2024 10:37 AM EST us Janice Núñez MD LAB BLOOD ORDERABLES Final Resul t [facility] [address] [place] [address], * (ABNORMAL) Complete blood count (11/05/2024 8:13 AM EST) WBC 5.7 4.8 - 10.8 K/mcL LAB HEMETOLOGY METHOD 11/05/2024 11:00 AM [facility] RBC 3.70(L) 3.80 - 4.80 M/mcL LAB HEMETOLOGY METHOD 11/05/2024 11:00 AM [facility] Hemoglobin 9.8(L) 11.5 - 16.0 g/dL LAB HEMETOLOGY METHOD 11/05/2024 11:00 AM [facility] Hematocrit 34.3(L) 35.0 - 47.0 % LAB HEMETOLOGY METHOD 11/05/2024 11:00 AM [facility] MCV 93.7 79.0 - 98.0 FL LAB HEMETOLOGY METHOD 11/05/2024 11:00 AM [facility] MCH 26.8(L) 27.0 - 32.0 pcg LAB HEMETOLOGY METHOD 11/05/2024 11:00 AM [facility] MCHC 28.6(L) 32.0 - 37.0 g/dL LAB HEMETOLOGY METHOD 11/05/2024 11:00 AM [facility] RDW 14.5 11.0 - 15.0 % LAB HEMETOLOGY METHOD 11/05/2024 11:00 AM [facility] Platelets 429(H) 130 - 400 K/mcL LAB HEMETOLOGY METHOD 11/05/2024 11:00 AM [facility] MPV 9.5 7.0 - 11.0 FL LAB HEMETOLOGY METHOD 11/05/2024 11:00 AM [facility] NRBC 0.0 <1.0 % LAB HEMETOLOGY METHOD 11/05/2024 11:00 AM [facility] NRBC Absolute 0.00 <0.10 K/mcL LAB HEMETOLOGY METHOD 11/05/2024 11:00 AM [facility] Blood Venous blood specimen / Unknown Venipuncture / Unknown 11/05/2024 8:13 AM EST 11/05/2024 10:37 AM EST us Janice Núñez MD LAB BLOOD ORDERABLES Final Resul t [facility] [address] [place] [address], documented in this encounter Visit Diagnoses Diagnosis [...] documented as of this encounter Care Teams Mems Engineer Relationship Specialty Start Date End Date Kinjal Barron FNP [address] [place] [phone] PCP - General Family Medicine 03/06/25 documented as of this encounter
[2025-11-17 11:22] LABS: Partial Thromboplastin Time 35.4 SEC (26.7-34.1)
--- OUTSIDE RECORDS SUMMARY | 2025-11-17 11:22 | XMS_ITS | Clinical Summary ---
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 Name Role Phone Rabia Barrongeovanny Jacqueline CINDER WORKER Primary Care Provid er Allergies Active Allergy [...] ions:Chronic obstructive pulmonary disease, unspecified COPD type ([facility] V24, [facility] V28),Chronic respiratory failure with hypercapnia ([facility] V24, [facility] V28) Take 3 mL by [...] tabletIndicatio ns:Squamous cell carcinoma of left lung ([facility] V24, [facility] V28) Take 8 mg (two [...] 2 (two) times a day. Active omega 7-mgf-wnb-fish oil 300 mg (120 mg- 180mg)-1,000 mg [...] on CPAP 11/08/2017 Overview (09/12/2024): Life supply/cpap [facility] Polysomnogram Trilogy treatment study. Date 09/06/2019. Wt [...] Encounters Date Type Department Care Team Description 11/15/2025 Lab Requisition [facility] [address] [place] [phone] Janice Núñez MD Hypokalemia 11/12/2025 Lab Requisition [facility] [address] [place] [phone] Janice Núñez MD Malignant neoplasm of unspecified part of left bronchus or lung ([facility] V24, [facility] V28); Chronic respiratory failure with hypercapnia ([facility] V24, [facility] V28) 11/05/2025 Lab Requisition [facility] [address] [place] [phone] Janice Núñez MD Malignant neoplasm of unspecified part of left bronchus or lung ([facility] V24, [facility]/HCC V28); Chronic respiratory failure with hypercapnia ([facility] V24, [facility] V28) 10/29/2025 Lab Requisition [facility] [address] [place] [phone] Janice Núñez MD Malignant neoplasm of unspecified part of left bronchus or lung ([facility] V24, [facility]/HCC V28); Chronic respiratory failure with hypercapnia ([facility] V24, [facility] V28) 10/28/2025 Telephone [facility] Hematology Oncology [address] [place] [phone] Lashanda Mcgill DO 10/22/2025 Lab Requisition [facility] [address] [place] [phone] Janice Núñez MD Malignant neoplasm of unspecified part of left bronchus or lung ([facility] V24, [facility]/HCC V28); Chronic respiratory failure with hypercapnia ([facility] V24, [facility] V28) 10/21/2025 Lab Requisition [facility] [address] [place] [phone] Janice Núñez MD Anemia, unspecified; Essential (primary) hypertension; Malignant neoplasm of unspecified part of unspecified bronchus or lung ([facility]/HCC V24, CMS/HCC V28) 10/18/2025 10:45 AM EST Office Visit [facility] Hematology Oncology [address] [place] [phone] Lashanda Mcgill DO Squamous cell carcinoma of left lung ([facility]/HCC V24, [facility]/HCC V28) (Primary Dx); Chronic respiratory failure with hypercapnia ([facility]/HCC V24, [facility]/HCC V28); Mild anemia 10/16/2025 Lab Requisition [facility] [address] [place] [phone] Janice Núñez MD Dysuria 10/15/2025 Lab Requisition [facility] [address] [place] [phone] Janice Núñez MD Malignant neoplasm of unspecified part of left bronchus or lung ([facility]/HCC V24, [facility]/HCC V28); Chronic respiratory failure with hypercapnia ([facility]/HCC V24, [facility]/HCC V28) 10/08/2025 10:00 AM EST - 10/08/2025 11:59 PM EST Hospital Encounter [facility] PET Scan [address] [place] [phone] Squamous cell carcinoma of left lung ([facility]/HCC V24, [facility]/HCC V28); Personal history of malignant neoplasm of lung; Malignant neoplasm of overlapping sites of left bronchus and lung ([facility]/HCC V24, [facility]/HCC V28) Discharge Disposition: Home or Self Care 10/08/2025 Lab Requisition [facility] [address] [place] [phone] Janice Núñez MD Malignant neoplasm of unspecified part of left bronchus or lung (CMS/HCC V24, CMS/HCC V28); Chronic respiratory failure with hypercapnia (CMS/HCC V24, CMS/HCC V28) 10/01/2025 Lab Requisition [facility] [address] [place] [address] Janice Núñez MD Malignant neoplasm of unspecified part of left bronchus or lung (CMS/HCC V24, CMS/HCC V28); Chronic respiratory failure with hypercapnia (CMS/HCC V24, CMS/HCC V28) 09/24/2025 Lab Requisition [facility] [address] [place] [phone] Janice Núñez MD Malignant neoplasm of unspecified part of left bronchus or lung (CMS/HCC V24, CMS/HCC V28); Chronic respiratory failure with hypercapnia (CMS/HCC V24, CMS/HCC V28) 09/19/2025 Telephone [facility] Radiation Oncology [address] [place] [phone] Debra Loya, RD 09/17/2025 11:45 AM EDT Office Visit [facility] Hematology Oncology [address] [place] [phone] Lashanda Mcgill DO Squamous cell carcinoma of left lung (CMS/HCC V24, CMS/HCC V28) (Primary Dx); Personal history of malignant neoplasm of lung; Malignant neoplasm of overlapping sites of left bronchus and lung (CMS/HCC V24, CMS/HCC V28) 09/17/2025 Lab Requisition [facility] [address] [place] [phone] Janice Núñez MD Malignant neoplasm of unspecified part of left bronchus or lung (CMS/HCC V24, CMS/HCC V28); Chronic respiratory failure with hypercapnia (CMS/HCC V24, CMS/HCC V28) 09/12/2025 Telephone [facility] Hematology Oncology [address] [place] [phone] Elke Duong RN 09/10/2025 Lab Requisition [facility] [address] [place] [address] Janice Núñez MD Malignant neoplasm of unspecified part of left bronchus or lung (CMS/HCC V24, CMS/HCC V28); Chronic respiratory failure with hypercapnia ([facility] V24, [facility] V28) 09/09/2025 Lab Requisition [facility] [address] [place] [phone] Janice Núñez MD Chronic obstructive pulmonary disease, unspecified ([facility] V24, [facility] V28); Malignant neoplasm of unspecified part of unspecified bronchus or lung ([facility] V24, [facility] V28) 09/05/2025 10:39 AM EDT - 09/06/2025 6:08 PM EDT Hospital Encounter [facility] Intermediate Care Unit B [address] [place] [phone] Glenroy Paez MD Flores, Carlos M, MD Bell, Alistair A, MD Stroke-like symptoms (Primary Dx) Discharge Disposition: Fdc Facility 09/05/2025 Telephone [facility] Hematology Oncology [address] [place] [phone] Erika Tran RN 09/03/2025 Lab Requisition [facility] [address] [place] [phone] Janice Núñez MD Malignant neoplasm of unspecified part of left bronchus or lung ([facility] V24, [facility] V28); Chronic respiratory failure with hypercapnia ([facility] V24, [facility] V28) 09/01/2025 Lab Requisition [facility] [address] [place] [phone] Janice Núñez MD Frequency of micturition; Fever, unspecified 08/30/2025 Lab Requisition [facility] [address] [place] [phone] Janice Núñez MD Hyperkalemia 08/27/2025 Lab Requisition [facility] [address] [place] [phone] Janice Núñez MD Malignant neoplasm of unspecified part of left bronchus or lung ([facility] V24, [facility] V28); Chronic respiratory failure with hypercapnia ([facility] V24, [facility] V28) 08/20/2025 Lab Requisition [facility] [address] [facility] [place] [phone] Janice Núñez MD Malignant neoplasm of unspecified part of left bronchus or lung ([facility] V24, [facility] V28); Respiratory failure, unspecified, unspecified whether with hypoxia or hypercapnia ([facility] V24, [facility] V28); Other retirement (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 therapy from Last 3 Months [...] Comments Depression 10/09/2017 DX:Depression Bipolar I disorder ([facility] V24, [facility] V28) 06/10/2017 DX:Bipolar I disorder (HCC) Chronic obstructive pulmonar y disease ([facility] V24, [facility] V28) 07/29/2017 DX:Chronic obstructive pulm onary disease (HCC), will bipap Chronic respiratory failure with hypercapnia ([facility] V24, [facility] V28) 08/02/2017 DX:Chronic resp iratory [...] Arrhythmia Afib , hx Emphysema of lung ([facility] V 24, [facility] V28) per daughter HL (hearing loss) wears hearing aids Full dentures Lung cancer ([facility] V24, [facility] V28) 03/2025 Asthma [address] [...] [facility] [address] [place] [phone] Lashanda Mcgill, [address] [place] [address] Health Maintenance Due Date Last Done Comments [...] 09/06/2025, 024 Hypertension/CHF/CAD Annual BMP Blood Test 11/13/2026 11/15/2025, 11/13/2025, 11/06/2025, Additional history exists Colorectal Cancer Screening: Colonoscopy [...] this topic Medical Devices Implanted Type Area Production Truck Driver Device Identifier Shelf Expiration Date Model / Serial / Lot Port Pwr Isp Attach 6f Interm Galina - [id number] Implanted:Qty : 1 on 07/09/2025 by Jesica Henderson MD at [facility] Central/Per ipheral Catheters and Ports Right: Internal Jugular CR BARD PERIPHERAL VASCULAR [id number] 09/27/2025 [id number] / / [id number] Marker Cobra Superlock - Sna - [id number] Implanted:Qty : 1 on 04/03/2025 by Justine Wong MD at [facility] Imaging Implants Left: Lung COVIDIEN SUPERDIMENSION [id number] 08/27/2028 [id number] / [id number] / [id number] Description:LEFT UPPER LOBE Procedures Procedure Name Priority Date/Time Associated Diagnosis Comments BASIC METABOLIC PANEL Routine 11/15/2025 7:10 AM EST Hypokalemia BASIC METABOLIC PANEL Routine 11/13/2025 7:56 AM EST Malignant neoplasm of unspecified part of left bronchus or lung (CMS/HCC V24, CMS/HCC V28) Chronic respiratory failure with hypercapnia (CMS/HCC V24, CMS/HCC V28) COMPLETE BLOOD COUNT Routine 11/13/2025 7:56 AM EST Malignant neoplasm of unspecified part [...] or hypercapnia (CMS/HCC V24, CMS/HCC V28) Other retirement (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 therapy VITAMIN B12 Routine 08/20/2025 4:50 AM EDT Malignant neoplasm of unspecified part of left bronchus or lung (CMS/HCC V24, CMS/HCC V28) Respiratory failure, unspecified, unspecified whether with hypoxia or hypercapnia (CMS/HCC V24, CMS/HCC V28) Other retirement (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 therapy HEMOGLOBIN A1C Routine 08/20/2025 4:50 AM EDT Malignant neoplasm of unspecified part of left bronchus or lung (CMS/HCC V24, CMS/HCC V28) Respiratory failure, unspecified, unspecified whether with hypoxia or hypercapnia (CMS/HCC V24, CMS/HCC V28) Other retirement (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 therapy THYROID STIMULATING HORMONE Routine 08/20/2025 4:50 AM EDT Malignant neoplasm of unspecified part of left bronchus or lung (CMS/HCC V24, CMS/HCC V28) Respiratory failure, unspecified, unspecified whether with hypoxia or hypercapnia (CMS/HCC V24, CMS/HCC V28) Other retirement (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 therapy FOLATE Routine 08/20/2025 4:50 AM EDT Malignant neoplasm of unspecified part of left bronchus or lung (CMS/HCC V24, CMS/HCC V28) Respiratory failure, unspecified, unspecified whether with hypoxia or hypercapnia (CMS/HCC V24, CMS/HCC V28) Other retirement (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 therapy COMPREHENSIVE METABOLIC PANEL Routine 08/20/2025 4:50 AM EDT Malignant neoplasm of unspecified part of left bronchus or lung (CMS/HCC V24, CMS/HCC V28) Respiratory failure, unspecified, unspecified whether with hypoxia or hypercapnia (CMS/HCC V24, CMS/HCC V28) 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 COMPLETE BLOOD COUNT Routine 08/20/2025 4:50 AM EDT Malignant neoplasm of unspecified part of left bronchus or lung (CMS/HCC V24, CMS/HCC V28) Respiratory failure, unspecified, unspecified whether with hypoxia or hypercapnia (CMS/HCC V24, CMS/HCC V28) 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 COLONOSCOPY Routine 04/27/2024 DEPRESSION SCREENING Routine 04/16/2024 [facility] SCREENING DIGITAL Routine 03/22/2024 8:50 AM EDT Encounter for screening mammogram for malignant neoplasm of breast [facility] DEXA AXIAL SKELETON Routine 03/22/2024 8:14 AM EDT Encounter for screening for osteoporosis HEPATITIS C SCREENING Routine 02/09/2024 FALLS RISK ASSESSMENT Routine 02/09/2024 from Last 3 Months or Most Recently Relevant to Health Maintenance Results * (ABNORMAL) Basic metabolic panel (11/15/2025 7:10 AM EST) Only the most recent of18 resultswithin the time period is included. Sodium 139 133 - 145 mmol/L 11/15/2025 10:20 AM [facility] Potassium 3.5 3.5 - 5.5 mmol/L 11/15/2025 10:20 AM [facility] Chloride 90(L) 96 - 110 mmol/L 11/15/2025 10:20 AM [facility] CO2 >40(HH) 21 - 32 mmol/L 11/15/2025 10:20 AM [facility] Anion Gap <9 3 - 11 11/15/2025 10:20 AM [facility] Glucose 106(H) 70 - 100 mg/dL 11/15/2025 10:20 AM [facility] BUN 19 5 - 25 mg/dL 11/15/2025 10:20 AM [facility] Creatinine 1.14(H) 0.50 - 1.10 mg/dL 11/15/2025 10:20 AM [facility] eGFR 52(L) >=60 mL/min/1. 73m2 11/15/2025 10:20 AM [facility] Comment:Calculation based on the Chronic Kidney Disease Epidemiology Collaboration (CKD-EPI) equation refit without adjustment for race. BUN/Creatinine Ratio 16.7 11/15/2025 10:20 AM [facility] Calcium 8.9 8.5 - 10.5 mg/dL 11/15/2025 10:20 AM [facility] Blood Venous blood specimen / Unknown Venipuncture / Unknown 11/15/2025 7:10 AM EST 11/15/2025 9:23 AM EST us Fahim A Wiltno MD LAB BLOOD ORDERABLES Final Resul t [facility] [address] [place] [address], * (ABNORMAL) Complete blood count (11/13/2025 7:56 AM EST) Only the most recent of14 resultswithin the time period is included. WBC 7.6 4.8 - 10.8 K/mcL LAB HEMETOLOGY METHOD 11/13/2025 11:04 AM [facility] RBC 3.00(L) 3.80 - 4.80 M/mcL LAB HEMETOLOGY METHOD 11/13/2025 11:04 AM [facility] Hemoglobin 7.6(L) 11.5 - 16.0 g/dL LAB HEMETOLOGY METHOD 11/13/2025 11:04 AM [facility] Hematocrit 26.6(L) 35.0 - 47.0 % LAB HEMETOLOGY METHOD 11/13/2025 11:04 AM [facility] MCV 89.9 79.0 - 98.0 FL LAB HEMETOLOGY METHOD 11/13/2025 11:04 AM [facility] MCH 25.7(L) 27.0 - 32.0 pcg LAB HEMETOLOGY METHOD 11/13/2025 11:04 AM [facility] MCHC 28.6(L) 32.0 - 37.0 g/dL LAB HEMETOLOGY METHOD 11/13/2025 11:04 AM [facility] RDW 16.2(H) 11.0 - 15.0 % LAB HEMETOLOGY METHOD 11/13/2025 11:04 AM [facility] Platelets 497(H) 130 - 400 K/mcL LAB HEMETOLOGY METHOD 11/13/2025 11:04 AM [facility] MPV 9.4 7.0 - 11.0 FL LAB HEMETOLOGY METHOD 11/13/2025 11:04 AM EST [facility] NRBC 0.0 <1.0 % LAB HEMETOLOGY METHOD 11/13/2025 11:04 AM EST [facility] NRBC Absolute 0.00 <0.10 K/mcL LAB HEMETOLOGY METHOD 11/13/2025 11:04 AM [facility] Blood Venous blood specimen / Unknown Venipuncture / Unknown 11/13/2025 7:56 AM EST 11/13/2025 10:13 AM EST us Janice Núñez MD LAB BLOOD ORDERABLES Final Resul t Performing Organization Address [facility] de Phone Number [facility] [address] [place] [address], [place] [phone] * (ABNORMAL) Iron and TIBC (10/21/2025 8:45 AM EST) Iron 10(L) 40 - 150 mcg/dL 10/21/2025 11:32 AM [facility] TIBC 392 250 - 450 mcg/dL 10/21/2025 11:32 AM [facility] Iron Saturation 3(L) 15 - 50 % 11:32 AM [facility] Blood Venous blood specimen / Unknown Venipuncture / Unknown 10/21/2025 8:45 AM EST 10/21/2025 10:33 AM EST us Janice Núñez MD LAB BLOOD ORDERABLES Final Resul t Performing Organization Address City/[facility]/ZIP Co de Phone Number [facility] [address] [place] [address], [place] [phone] * Folate (10/21/2025 8:45 AM EST) Only the most recent of2 resultswithin the time period is included. Pathologist [facility] Folate 18.8 >=5.4 ng/ml 10/21/2025 11:30 AM EST [facility] Blood Venous blood specimen / Unknown Venipuncture / Unknown 10/21/2025 8:45 AM EST 10/21/2025 10:33 AM EST Narrative [facility] - 10/21/2025 11:30 AM EST Over the counter supplements containing high doses of biotin may interfere with this assay. If interference is suspected, patients shoud be retested after refraining from biotin supplements for 72 hours. us Janice Núñez MD LAB BLOOD ORDERABLES Final Resul t [facility] [address] [place] [address], [place] [phone] * Ferritin (10/21/2025 8:45 AM EST) [facility] Ferritin 11 7 - 271 ng/mL 10/21/2025 11:30 AM EST [facility] Blood Venous blood specimen / Unknown Venipuncture / Unknown 10/21/2025 8:45 AM EST 10/21/2025 10:33 AM EST us Janice Núñez MD LAB BLOOD ORDERABLES Final Resul t [facility] [address] [place] [address], [place] [phone] * Vitamin B12 (10/21/2025 8:45 AM EST) Only the most recent of2 resultswithin the time period is included. [facility] Vitamin B-12 631 211 - 911 pcg/mL 10/21/2025 11:30 AM EST [facility] Blood Venous blood specimen / Unknown Venipuncture / Unknown 10/21/2025 8:45 AM EST 10/21/2025 10:33 AM EST us Janice Núñez MD LAB BLOOD ORDERABLES Final Resul t [facility] [address] [place] [address], [place] [phone] * (ABNORMAL) Urinalysis with reflex microscopic (10/16/2025 12:00 AM EST) Only the most recent of2 resultswithin the time period is included. Specific [place] Urine 1.015 1.003 - 1.030 LAB URINALYSIS - AUTOMATED METHOD 10/16/2025 11:46 AM [facility] pH, Urine 7.5 5.0 - 8.0 pH LAB URINALYSIS - AUTOMATED METHOD 10/16/2025 11:46 AM [facility] Leukocytes, Urine Large(A) Negative LAB URINALYSIS - AUTOMATED METHOD 10/16/2025 11:46 AM [facility] Nitrite, Urine Negative Negative LAB URINALYSIS - AUTOMATED METHOD 10/16/2025 11:46 AM [facility] Protein, Urine 100(A) <=Trace mg/dL LAB URINALYSIS - AUTOMATED METHOD 10/16/2025 11:46 AM [facility] Glucose, Urine Negative Negative mg/dL LAB URINALYSIS - AUTOMATED METHOD 10/16/2025 11:46 AM [facility] Ketones, Urine Negative Negative mg/dL LAB URINALYSIS - AUTOMATED METHOD 10/16/2025 11:46 AM [facility] Urobilinogen , Urine 0.2 0.2 - 1.0 mg/dL LAB URINALYSIS - AUTOMATED METHOD 10/16/2025 11:46 AM [facility] Bilirubin, Urine Negative Negative LAB URINALYSIS - AUTOMATED METHOD 10/16/2025 11:46 AM [facility] Blood, Urine Moderate(A) Negative LAB URINALYSIS - AUTOMATED METHOD 10/16/2025 11:46 AM [facility] RBC, Urine 20(H) 0 - 4 /HPF 10/16/2025 11:46 AM [facility] WBC, Urine 30(H) 0 - 4 /HPF 10/16/2025 11:46 AM [facility] Squamous Epithelial, Urine 2 0 - 60 /LPF 10/16/2025 11:46 AM [facility] Non-Squamous Epithelial, Urine 2-5 Transitional epithelial cells. /LPF 10/16/2025 11:46 AM [facility] Bacteria, Urine Moderate(A) Negative /HPF 10/16/2025 11:46 AM [facility] Urine Urine specimen from urethra / Unknown Non-blood Collection / Unknown 10/16/2025 10/16/2025 10:00 AM EST us Janice Núñez MD LAB URINE ORDERABLES Final Resul t [facility] [address] [place] [address], * (ABNORMAL) Culture urine (10/16/2025 12:00 AM EST) Only the most recent of2 resultswithin the time period is included. Culture, Urine 50,000-100,000 CFU/mL Klebsiella aerogenes(A) SERGIO 10/18/2025 10:36 AM EST [facility] Comment: This is an edited [...] Klebsiella aerogenes Trimethoprim/Sulfamethoxazole SERGIO <=20 ug/ml: Susceptible us Janice Núñez MD LAB MICROBIOLOGY - GENERAL ORDER KANE Final Result [facility] ([facility]) [facility] [address] [place] [address], * PET CT Skull to Mid Thigh [...] Signed Date: 10/15/2025 14:01 ET Workstation ID: [id number] Transcribed By: Self Edit Transcribed Date: 10/15/2025 [...] Signed Date: 10/15/2025 14:01 ET Workstation ID: [id number] Transcribed By: Self Edit Transcribed Date: 10/15/2025 13:25 ET us Lashanda Mcgill DO IMG NM PROCEDURES Fin al Result * ECG-Annotated (09/07/2025) us Provider Onbase MD ECG ORDERABLES Final Result * (ABNORMAL) Lipid panel with reflex to direct LDL (09/06/2025 6:02 AM EDT) Cholesterol 239(H) 0 - 200 mg/dL LAB CHEMISTRY METHOD [facility] Triglycerides 99 0 - 150 mg/dL LAB CHEMISTRY METHOD 09/06/2025 1:02 PM [facility] HDL 98 >=40 mg/dL LAB CHEMISTRY METHOD 09/06/2025 1:02 PM [facility] LDL Calculated 121(H) 0 - 100 mg/dL LAB CHEMISTRY METHOD 09/06/2025 1:02 PM [facility] Comment:Estimated LDL Calcul ated using equation: Total cholesterol - HDL cholesterol - (Triglycerides/5) VLDL Cholesterol Artur 19.8 mg/dL LAB CHEMISTRY METHOD 09/06/2025 1:02 PM [facility] Non HDL Chol. (LDL+VLDL) 141 <145 mg/dL LAB CHEMISTRY METHOD 09/06/2025 1:02 PM [facility] Chol/HDL Ratio 2.4 0.0 - 4.4 LAB CHEMISTRY METHOD 09/06/2025 1:02 PM [facility] Blood Blood sample taken from central line / Unknown Venipuncture / Unknown 09/06/2025 6:02 AM EDT 09/06/2025 6:18 AM EDT us Sathish Erwin MD LAB BLOOD ORDERABLES Final Re sult [facility] [address] [place] [address], * (ABNORMAL) CBC auto differential (09/06/2025 6:02 AM EDT) Only the most recent of2 resultswithin the time period is included. WBC 3.5(L) 4.8 - 10.8 K/mcL LAB HEMETOLOGY METHOD 09/06/2025 6:37 AM EDT [facility] RBC 3.80 3.80 - 4.80 M/mcL LAB HEMETOLOGY METHOD 09/06/2025 6:37 AM EDT [facility] Hemoglobin 10.6(L) 11.5 - 16.0 g/dL LAB HEMETOLOGY METHOD 09/06/2025 6:37 AM EDT [facility] Hematocrit 35.9 35.0 - 47.0 % LAB HEMETOLOGY METHOD 09/06/2025 6:37 [facility] MCV 94.2 79.0 - 98.0 FL LAB HEMETOLOGY METHOD 09/06/2025 6:37 AM EDT [facility] MCH 27.8 27.0 - 32.0 pcg LAB HEMETOLOGY METHOD 09/06/2025 6:37 [facility] MCHC 29.5(L) 32.0 - 37.0 g/dL LAB HEMETOLOGY METHOD 09/06/2025 6:37 [facility] RDW 15.9(H) 11.0 - 15.0 % LAB HEMETOLOGY METHOD 09/06/2025 6:37 AM EDT [facility] Platelets 332 130 - 400 K/mcL LAB HEMETOLOGY METHOD 09/06/2025 6:37 AM EDT [facility] MPV 9.2 7.0 - 11.0 FL LAB HEMETOLOGY METHOD 09/06/2025 6:37 [facility] NRBC 0.0 <1.0 % LAB HEMETOLOGY METHOD 09/06/2025 6:37 AM EDT [facility] NRBC Absolute 0.00 <0.10 K/[facility] LAB HEMETOLOGY METHOD 09/06/2025 6:37 AM EDT [facility] Neutrophils Relative 64.7 % LAB HEMETOLOGY METHOD 09/06/2025 6:37 AM [facility] Lymphocytes Relative 17.1 % LAB HEMETOLOGY METHOD 09/06/2025 6:37 [facility] Monocytes Relative 14.2 % LAB HEMETOLOGY METHOD 09/06/2025 6:37 AM [facility] Eosinophils Relative 1.4 % LAB HEMETOLOGY METHOD 09/06/2025 6:37 AM [facility] Basophils Relative 1.2 % LAB HEMETOLOGY METHOD 09/06/2025 6:37 AM [facility] Immature Granulocytes Relative 1.4 % LAB HEMETOLOGY METHOD 09/06/2025 6:37 AM EDT [facility] Neutrophils Absolute 2.23 1.50 - 7.00 K/[facility] LAB HEMETOLOGY METHOD 09/06/2025 6:37 AM EDT [facility] Lymphocytes Absolute 0.59(L) 1.00 - 5.00 K/mcL LAB HEMETOLOGY METHOD 09/06/2025 6:37 [facility] Monocytes Absolute 0.49 0.20 - 1.00 K/[facility] LAB HEMETOLOGY METHOD 09/06/2025 6:37 AM EDT [facility] Eosinophils Absolute 0.05 0.00 - 0.50 K/mcL LAB HEMETOLOGY METHOD 09/06/2025 6:37 AM EDT [facility] Basophils Absolute 0.04 0.00 - 0.20 K/mcL LAB HEMETOLOGY METHOD 09/06/2025 6:37 AM EDT [facility] Immature Granulocytes Absolute 0.05(H) 0.00 - 0.03 K/mcL LAB HEMETOLOGY METHOD 09/06/2025 6:37 AM EDT [facility] Blood Blood sample taken from central line / Unknown Venipuncture / Unknown 09/06/2025 6:02 AM EDT 09/06/2025 6:18 AM EDT us Ayaan Fregoso MD LAB BLOOD ORDERABLES Final Re sult [facility] [address] [place] [address], * Lamotrigine level (09/06/2025 6:02 AM EDT) Lamotrigine (Lamictal) Level <0.2 2.0 - 15.0 ug/mL 09/09/2025 11:10 AM EDT [facility] Comment: Lamotrigine toxic level: >20 ug/mL The reference range is not well established. It may be as wide as 1 - 20 ug/mL. If applicable, any drug confirmation testing reported here was developed and the performance characteristics determined by [facility]. This confirmation testing has not been cleared or approved by the FDA. The laboratory is regulated under CLIA as qualified to perform high-complexity testing. This test is used for patient testing purposes. It should not be regarded as investigational or for research. Test performed at [facility], [address] , [place] [address] Emani Noble MD, PhD - Director Strategy Blood Blood sample taken from central line / Unknown Venipuncture / Unknown 09/06/2025 6:02 AM EDT 09/06/2025 6:17 AM EDT Emani Jackson NP LAB BLOOD ORDERABLES Fin al Result [facility] [address] [place] [address] * Magnesium (09/06/2025 6:02 AM EDT) Only the most recent of2 resultswithin the time period is included. Magnesium 1.9 1.9 - 2.6 mg/dL LAB CHEMISTRY METHOD 09/06/2025 7:07 AM EDT [facility] Blood Blood sample taken from central line / Unknown Venipuncture / Unknown 09/06/2025 6:02 AM EDT 09/06/2025 6:18 AM EDT Ayaan Fregoso MD LAB BLOOD ORDERABLES Final Re sult Performing Organization Address [facility] de Phone Number [facility] [address] [place] [address], [place] [phone] * (ABNORMAL) Ammonia (09/06/2025 6:02 AM EDT) Ammonia 55(H) 11 - 35 mcmol/L LAB CHEMISTRY METHOD 09/06/2025 6:56 AM EDT [facility] Blood Blood sample taken from central line / Unknown Venipuncture / Unknown 09/06/2025 6:02 AM EDT 09/06/2025 6:18 AM EDT Emani Jackson NP LAB BLOOD ORDERABLES Fin al Result Performing Organization Address [facility]/ZIP Co de Phone Number [facility] [address] [place] [address], [place] [phone] * MR Brain wo and w Contrast (09/05/2025 6:21 PM EDT) Anatomical Region Laterality Modality Head and Neck Magnetic Resonan ce 09/05/2025 7:17 PM EDT Impressions 09/05/2025 7:17 PM EDT No acute findings. This document has been electronically signed by: Gonzalo Dorantes MD on 09/05/2025 19:17:56 Narrative 09/05/2025 7:17 PM EDT INDICATION: Confusion, acute, unexplained MR Brain with and without gadolinium Comparison: MR/IN/SR - MR BRAIN WO AND W CONTRAST [...] MR Brain with and without gadolinium Comparison: MR/IN/SR - MR BRAIN WO AND W CONTRAST [...] Dorantes MD on 09/05/2025 19:17:56 Emani Jackson INSTRUMENT/CONTROL TECHNICIAN IM MRI PROCEDURES Final Result * Respiratory virus panel molecular study (09/05/2025 2:10 PM EDT) Adenovirus Detection by PCR Not Detected Not Detected LAB MICROBIOLOGY METHOD 09/05/2025 3:59 PM EDT [facility] Influenza A PCR Not Detected Not Detected LAB MICROBIOLOGY METHOD 09/05/2025 3:59 PM EDT [facility] Influenza B PCR Not Detected Not Detected LAB MICROBIOLOGY METHOD 09/05/2025 3:59 PM EDT [facility] Coronavirus 229E Not Detected Not Detected LAB MICROBIOLOGY METHOD 09/05/2025 3:59 PM EDT [facility] Coronavirus HKU1 Not Detected Not Detected LAB MICROBIOLOGY METHOD 09/05/2025 3:59 PM EDT [facility] Coronavirus OC43 Not Detected Not Detected LAB MICROBIOLOGY METHOD 09/05/2025 3:59 PM EDT [facility] Coronavirus NL63 Not Detected Not Detected LAB MICROBIOLOGY METHOD 09/05/2025 3:59 PM EDT [facility] Parainfluenza Virus 1 Not Detected Not Detected LAB MICROBIOLOGY METHOD 09/05/2025 3:59 PM EDT [facility] Parainfluenza Virus 2 Not Detected Not Detected LAB MICROBIOLOGY METHOD 09/05/2025 3:59 PM EDT [facility] Parainfluenza Virus 3 Not Detected Not Detected LAB MICROBIOLOGY METHOD 09/05/2025 3:59 PM EDT [facility] Parainfluenza Virus 4 Not Detected Not Detected LAB MICROBIOLOGY METHOD 09/05/2025 3:59 PM EDT [facility] RSV PCR Not Detected Not Detected LAB MICROBIOLOGY METHOD 09/05/2025 3:59 PM EDT [facility] Human Metapneumovirus A and B Not Detected Not Detected LAB MICROBIOLOGY METHOD 09/05/2025 3:59 PM EDT [facility] Rhinovirus/Entero virus Not Detected Not Detected LAB MICROBIOLOGY METHOD 09/05/2025 3:59 PM EDT [facility] Bordetella pertussis Not Detected Not Detected LAB MICROBIOLOGY METHOD 09/05/2025 3:59 PM EDT [facility] Bordetella parapertussis Not Detected Not Detected LAB MICROBIOLOGY METHOD 09/05/2025 3:59 PM EDT [facility] Mycoplasma pneumo by PCR Not Detected Not Detected LAB MICROBIOLOGY METHOD 09/05/2025 3:59 PM EDT [facility] Chlamydia pneumoniae Not Detected Not Detected LAB MICROBIOLOGY METHOD 09/05/2025 3:59 PM EDT [facility] SARS COV-2 Not Detected Not Detected LAB MICROBIOLOGY METHOD 09/05/2025 3:59 PM EDT [facility] Swab Both anterior nares / Unknown Non-blood Collection / Unknown 09/05/2025 2:10 PM EDT 09/05/2025 2:18 PM EDT Narrative [facility] - 09/05/2025 3:59 PM EDT Testing was performed using the [employer] Respiratory Pathogen PCR Assay. All results must [...] that are below the limit of detection. Emani Jackson NP LAB MICROBIOLOGY - GENER AL ORDERABLES Final Result [facility] [address] [place] [address], * (ABNORMAL) POCT Glucose, blood (09/05/2025 12:33 PM EDT) Glucose POCT 122(H) 70 - 100 mg/dL 09/05/2025 12:33 PM EDT [facility] Blood Capillary blood specimen / Unknown 09/05/2025 12:33 PM EDT 09/05/2025 12:35 PM EDT Ayaan Fregoso MD LAB POINT OF CARE TE ST DOCKED DEVICE UNSOLICITED RESULTS Final Result Performing Organization Address [facility]/ZIP Co de Phone Number [facility] [address] [place] [address], [place] [phone] * (ABNORMAL) Venous blood gas (09/05/2025 12:33 PM EDT) pH, Feliz 7.35 7.32 - 7.42 pH 09/05/2025 12:44 PM EDT [facility] pCO2, Feliz 93(HH) 41 - 51 mmHg 09/05/2025 12:44 PM EDT [facility] pO2, Feliz 43(H) 25 - 40 mmHg 09/05/2025 12:44 PM EDT [facility] HCO3, Venous 40.5(H) 22.0 - 26.0 mmol/L 09/05/2025 12:44 PM EDT [facility] O2 Sat, Feliz 74.3 % 09/05/2025 12:44 PM EDT [facility] Base Excess, Feliz 20.8(H) -2.0 - 2.0 mmol/L 09/05/2025 12:44 PM EDT [facility] Blood Venous blood specimen / Unknown Venipuncture / Unknown 09/05/2025 12:33 PM EDT 09/05/2025 12:38 PM EDT Ayaan Fregoso MD LAB BLOOD ORDERABLES Final Re sult [facility] [address] [place] [address], * XR Chest 1 View (09/05/2025 12:28 [...] Signed Date: 09/05/2025 13:13 ET Workstation ID: [id number] Transcribed By: Self Edit Transcribed Date: 09/05/2025 [...] Signed Date: 09/05/2025 13:13 ET Workstation ID: [id number] Transcribed By: Self Edit Transcribed Date: 09/05/2025 [...] ED Physician in the absence of a pulmonary physician: yes Interpretation: Interpretation: normal Details: Sinus tachycardia with a ventricular rate of 101 bpm. Normal IN, QRS, QTc, axis. No acute ischemic changes us Glenroy Paez MD ECG ORDERABLES Final Result * Troponin I high sensitivity (NOW and then in 1 hour) (09/05/2025 11:20 AM EDT) [facility] High Sensitivity Troponin I 10 <=54 ng/L LAB CHEMISTRY METHOD 09/05/2025 12:11 PM EDT [facility] Blood Venous blood specimen / Unknown Venipuncture / Unknown 09/05/2025 11:20 AM EDT 09/05/2025 11:38 AM EDT Narrative [facility] - 09/05/2025 12:11 PM EDT High levels of biotin in samples may falsely decrease hsTroponin values. Use caution when interpreting hsTroponin results in patients taking biotin who exhibit renal impairment (eGFR <60) or in patients taking more than 20 mg/day of biotin. Glenroy Paez MD LAB BLOOD ORDERABLES Final Res ult Performing Organization Address City/[facility]/ZIP Co de Phone Number [facility] [address] [place] [address], [place] [phone] * Activated partial thromboplastin time (09/05/2025 11:20 AM EDT) [facility] aPTT 37.4 24.1 - 39.3 sec LAB COAGULATION METHOD 09/05/2025 11:53 AM EDT [facility] Blood Venous blood specimen / Unknown Venipuncture / Unknown 09/05/2025 11:20 AM EDT 09/05/2025 11:38 AM EDT Glenroy Paez MD LAB BLOOD ORDERABLES Final Res ult [facility] [address] [place] [address], [place] [phone] * (ABNORMAL) Prothrombin time with INR (09/05/2025 11:20 AM EDT) [facility] Protime 14.3(H) 10.6 - 13.9 sec LAB COAGULATION METHOD 09/05/2025 11:52 AM EDT [facility] INR 1.1 LAB COAGULATION METHOD 09/05/2025 11:52 AM EDT [facility] Blood Venous blood specimen / Unknown Venipuncture / Unknown 09/05/2025 11:20 AM EDT 09/05/2025 11:38 AM EDT Glenroy Paez MD LAB BLOOD ORDERABLES Final Res ult Performing Organization Address [facility]/ZIP Co de Phone Number [facility] [address] [place] [address], [place] [phone] * C-reactive protein (09/05/2025 11:20 AM EDT) C-Reactive Protein 0.42 <=0.50 mg/dL LAB CHEMISTRY METHOD 09/05/2025 2:40 PM EDT [facility] Blood Venous blood specimen / Unknown Venipuncture / Unknown 09/05/2025 11:20 AM EDT 09/05/2025 11:38 AM EDT Ayaan Fregoso MD LAB BLOOD ORDERABLES Final Re sult Performing Organization Address [facility]/ZIP Co de Phone Number [facility] [address] [place] [address], [place] [phone] * Hepatic function panel (09/05/2025 11:20 AM EDT) Total Protein 6.7 6.0 - 8.0 g/dL LAB CHEMISTRY METHOD 09/05/2025 2:40 PM EDT [facility] Albumin 3.6 3.2 - 5.0 g/dL LAB CHEMISTRY METHOD 09/05/2025 2:40 PM EDT [facility] Total Bilirubin 0.3 0.0 - 1.4 mg/dL LAB CHEMISTRY METHOD 09/05/2025 2:40 PM EDT [facility] Bilirubin, Direct 0.1 0.0 - 0.3 mg/dL LAB CHEMISTRY METHOD 09/05/2025 2:40 PM EDT [facility] Bilirubin, Indirect 0.2 0.0 - 1.1 mg/dL LAB CHEMISTRY METHOD 09/05/2025 2:40 PM EDT [facility] ALT (SGPT) 22 10 - 60 unit/L LAB CHEMISTRY METHOD 09/05/2025 2:40 PM EDT [facility] AST (SGOT) 20 10 - 42 unit/L LAB CHEMISTRY METHOD 09/05/2025 2:40 PM EDT [facility] Alkaline Phosphatase 74 42 - 121 unit/L LAB CHEMISTRY METHOD 09/05/2025 2:40 PM EDT [facility] Blood Venous blood specimen / Unknown Venipuncture / Unknown 09/05/2025 11:20 AM EDT 09/05/2025 11:38 AM EDT us Ayaan Fregoso MD LAB BLOOD ORDERABLES Final Re sult [facility] [address] [place] [address], * ECG 12 lead (09/05/2025 11:11 AM EDT) Ventricular Rate ECG 101 BPM GEMUSE Atrial Rate 101 BPM GEMUSE P-R Interval 180 ms GEMUSE QRS Duration 86 ms GEMUSE Q-T Interval 318 ms GEMUSE QTc 412 ms GEMUSE P Wave [place] 91 degrees GEMUSE R [place] 70 degrees GEMUSE T [place] 31 degrees GEMUSE ECG Interpretation Sinus tachycardia [...] Signed Date: 09/05/2025 10:52 ET Workstation ID: [id number] Transcribed By: Self Edit Transcribed Date: 09/05/2025 10:46 ET Narrative 09/05/2025 10:52 AM EDT INDICATION: Generalized weakness, slurred speech, dizziness, headache Technique: Axial images were obtained from the skull base to the vertex without contrast enhancement. Coronal and sagittal reformats obtained. Scanner: [employer] 64 slice VCT Dose reduction technique: ASIR [...] enhancement. Coronal and sagittal reformats obtained. Scanner: [employer] 64 slice VCT Dose reduction technique: ASIR [...] Signed Date: 09/05/2025 10:52 ET Workstation ID: [id number] Transcribed By: Self Edit Transcribed Date: 09/05/2025 10:46 ET Glenroy Paez MD IM CT PROCEDURES Final Result * CT Angio [...] Signed Date: 09/05/2025 11:59 ET Workstation ID: [id number] Transcribed By: Self Edit Transcribed Date: 09/05/2025 [...] reconstructions performed on a computer workstation. Scanner: [employer] 64slice VCT Dose reduction technique: ASIR (Adaptive [...] reconstructions performed on a computer workstation. Scanner: [employer] 64slice VCT Dose reduction technique: ASIR (Adaptive [...] Patent left posterior communicating artery joins left [id number] to form the left posterior cerebral artery. [...] Signed Date: 09/05/2025 11:59 ET Workstation ID: [id number] Transcribed By: Self Edit Transcribed Date: 09/05/2025 11:46 ET Glenroy Paez MD IMG CT PROCEDURES Final Result * Vitamin D 25 hydroxy (08/20/2025 4:50 AM EDT) Vit D, 25-Hydroxy 37.7 30.0 - 80.0 ng/mL LAB CHEMISTRY METHOD 08/20/2025 12:17 PM EDT [facility] Blood Venous blood specimen / Unknown Venipuncture / Unknown 08/20/2025 4:50 AM EDT 08/20/2025 9:32 AM EDT Janice Núñez MD LAB BLOOD ORDERABLES Final Resul t [facility] [address] [place] [address], [place] [phone] * Thyroid stimulating hormone (08/20/2025 4:50 AM EDT) TSH 2.01 0.40 - 4.00 mcIU/mL LAB CHEMISTRY METHOD 08/20/2025 12:18 PM EDT [facility] Blood Venous blood specimen / Unknown Venipuncture / Unknown 08/20/2025 4:50 AM EDT 08/20/2025 9:32 AM EDT us Janice Núñez MD LAB BLOOD ORDERABLES Final Resul t [facility] [address] [place] [address], [place] [phone] * Hemoglobin A1c (08/20/2025 4:50 AM EDT) Hemoglobin A1C 5.8 <6.5 % LAB CHEMISTRY METHOD 08/20/2025 12:16 PM EDT [facility] Mean Bld Glu Estim. 120 mg/dL LAB CHEMISTRY METHOD 08/20/2025 12:16 PM EDT [facility] Blood Venous blood specimen / Unknown Venipuncture / Unknown 08/20/2025 4:50 AM EDT 08/20/2025 9:32 AM EDT us Janice Núñez MD LAB BLOOD ORDERABLES Final Resul t Performing Organization Address City/[facility]/ZIP Co de Phone Number [facility] [address] [place] [address], [place] [phone] * (ABNORMAL) Comprehensive metabolic panel (08/20/2025 4:50 AM EDT) Pathologist [facility] Sodium 140 133 - 145 mmol/L LAB CHEMISTRY METHOD 08/20/2025 11:04 AM EDT [facility] Potassium 3.3(L) 3.5 - 5.5 mmol/L LAB CHEMISTRY METHOD 08/20/2025 11:04 AM EDT [facility] Chloride 102 96 - 110 mmol/L LAB CHEMISTRY METHOD 08/20/2025 11:04 AM EDT [facility] CO2 31 21 - 32 mmol/L LAB CHEMISTRY METHOD 08/20/2025 11:04 AM EDT [facility] Anion Gap 7 3 - 11 LAB CHEMISTRY METHOD 08/20/2025 11:04 AM EDT [facility] Glucose 81 70 [...] AM [facility] Total Bilirubin 0.1 0.0 - 1.4 mg/dL LAB CHEMISTRY METHOD 08/20/2025 11:04 AM [facility] Blood Venous blood specimen / Unknown Venipuncture / Unknown 08/20/2025 4:50 AM EDT 08/20/2025 9:32 AM EDT Janice Núñez MD LAB BLOOD ORDERABLES Final Resul t [facility] [address] [place] [address], [place] [phone] * Colonoscopy (04/27/2024) Colonoscopy No Interpretation , Abstracted Anatomical Region Laterality Modality Other Historical Provider HEALTH MAINTENANCE Final Result * Depression Screening (04/16/2024) Pathologist [facility] Depression Screening Abstracted Historical Provider HEALTH MAINTENANCE Final Result * LUIS ARMANDO SCREENING DIGITAL (03/22/2024 8:50 AM EDT) Anatomical Region Laterality Modality Mammography 03/21/2024 3:07 PM EDT Narrative 03/22/2024 8:[address] [facility] Diagnostic Imaging Department [address] [place] [address] Patient: DENISA VERDUZCO./Age/Sex: 1955 - 68 - F Unit#: [id number] Location/Status: SPDIMAM/REG CLI Mnemonic/Ordering Site: DIGSC/SPMAM Ordering Physician: YANN MANZANARES Luis Armando Screening Digital - 03/21/24 - Report Status:Signed EXAM: [facility] Screening Digital EXAM DATE AND TIME: 03/21/2024 3:49 PM HISTORY: Screening. Left breast biopsy in 2016, pathology benign. COMPARISON: 02/16/23, 09/21/19, 09/18/18, 09/15/17 TECHNIQUE: Bilateral digital breast tomosynthesis was performed in the CC and MLO projections. Computer aided detection with [employer] 3D 3.1 was employed. TISSUE DENSITY: b. [...] Procedure Note Erica Treadwell MD - 07/16/2024 [facility] Diagnostic Imaging Department [address] [place] [address] Patient: CHAVAGUERODENISA /Age/Sex: 1955 - 68 - F Unit#: [id number] Location/Status: [facility] CLI Mnemonic/Ordering Site: DIGSC/SPMAM Ordering Physician: YANN MANZANARES [facility] Screening Digital - 03/21/24 - Report Status:Signed EXAM: [facility] Screening Digital EXAM DATE AND TIME: 03/21/2024 3:49 PM HISTORY: Screening. Left breast biopsy in 2016, pathology benign. COMPARISON: 02/16/23, 09/21/19, 09/18/18, 09/15/17 TECHNIQUE: Bilateral digital breast tomosynthesis was performed in the CCand MLO projections. Computer aided detection with [employer] 3D 3.1was employed. TISSUE DENSITY: b. There [...] Dic Date/Time: 03/22/2449 Sign date/Time: 03/22/24 0850 Yann Manzanares MD IMG BI PROCEDURES Final Result * [facility] DEXA AXIAL SKELETON (03/22/2024 8:14 AM EDT) Anatomical Region Laterality Modality Mammography 03/21/2024 3:07 PM EDT Narrative 03/22/2024 8:[address] [facility] Diagnostic Imaging Department [address] [place] [id number] Patient: DENISA VERDUZCO /Age/Sex: 1955 68 - F Unit#: [id number] Location/Status: SPDIMAM/REG CLI Mnemonic[facility] Ordering Physician: YANN MANZANARES Luis Armando Dexa [...] probability of hip fracture of 7.1%. Code 87674 Dictating Physician: MILTON ORTEGA MD Electronically Signed by: MILTON ORTEGA MD Dic Date/Time: 03/22/24812 Sign date/Time: 03/22/24813 Procedure Note Milton Ortega MD - 07/16/2024 [facility] Diagnostic Imaging Department [address] [place] [address] Patient: DAXDENISA Gray./Age/Sex: 1955 - F Unit#: [id number] Location/Status: [facility] Mnemonic/[facility]ing [facility] Ordering Physician: YANN MANZANARES [facility] Dexa Axial Skeleton - 03/21/24 - 1602 [...] density of the femurs bilaterally is 0.912 gm/[id number] is 90% of that of young normals [...] probability of hip fracture of 7.1%. Code 36887 Dictating Physician: MILTON ORTEGA MD Electronically Signed by: MILTON ORTEGA MD Dic Date/Time: 03/22/24812 Sign date/Time: 03/22/2414 Result [facility] Yann Manzanares MD IM BI PROCEDURES Final Result * Falls Risk Assessment (02/09/2024) [facility] Falls Risk Assessment Abstracted Historical Provider HEALTH MAINTENANCE Final Result * Hepatitis C Screening (02/09/2024) [facility] Hepatitis C Screening Abstracted Result [facility] Historical Provider HEALTH MAINTENANCE Final Result from Last 3 Months or Most Recently Relevant to Health Maintenance Insurance Yessica LOPEZ, MAULIK [id number] [employer] Advance Directives Documents on File Type Date Recorded 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
--- OUTSIDE RECORDS SUMMARY | 2025-11-17 11:22 | XMS_ITS | Encounter Summary ---
Author Organization [facility] [address] Address [address] [place] [address] Care Team Providers Care Diamond Powder Mixer Name Role Phone Kinjal Barron GANG HEAD SAW OPERATOR Primary Care Provid er Encounter Details Date Type Department Care Team (Late st Contact Info) Description 11/15/2025 Lab Requisition [facility] - Main Lab [address] [place] [address] Janice Núñez MD [address] [place], [place] [phone] Hypokalemia Social History Tobacco Use Types Packs/Day Years [...] [facility] Hematology Oncology [address] [place] [phone] Lashanda Mcgill, DO [address] [place] [address] documented as of this encounter Procedures Procedure Name Priority Date/Time Associated Diagnosis Comments BASIC METABOLIC PANEL Routine 11/15/2025 7:10 AM EST Hypokalemia documented in this encounter Results * (ABNORMAL) Basic metabolic panel (11/15/2025 7:10 AM EST) Sodium 139 133 - 145 mmol/L 11/15/2025 10:20 AM [facility] Potassium 3.5 3.5 - 5.5 mmol/L 11/15/2025 10:20 AM [facility] Chloride 90(L) 96 - 110 mmol/L 11/15/2025 10:20 AM [facility] CO2 >40(HH) 21 - 32 mmol/L 11/15/2025 10:20 AM [facility] Anion Gap <9 3 - 11 11/15/2025 10:20 AM [facility] Glucose 106(H) 70 - 100 mg/dL 11/15/2025 10:20 AM [facility] BUN 19 5 - 25 mg/dL 11/15/2025 10:20 AM [facility] Creatinine 1.14(H) 0.50 - 1.10 mg/dL 11/15/2025 10:20 AM [facility] eGFR 52(L) >=60 mL/min/1. 73m2 11/15/2025 10:20 AM [facility] Comment:Calculation based on the Chronic Kidney Disease Epidemiology Collaboration (CKD-EPI) equation refit without adjustment for race. BUN/Creatinine Ratio 16.7 11/15/2025 10:20 AM [facility] Calcium 8.9 8.5 - 10.5 mg/dL 11/15/2025 10:20 AM [facility] Blood Venous blood specimen / Unknown Venipuncture / Unknown 11/15/2025 7:10 AM EST 11/15/2025 9:23 AM EST us Janice Núñez MD LAB BLOOD ORDERABLES Final Resul t [facility] [address] [place], [place] [address] [phone] documented in this encounter Visit Diagnoses Diagnosis Hypokalemia Hypopotassemia documented in this encounter Additional Health Concerns Assessment Noted Time PHQ-9 Depression Total Score: 1 07/19/20 25 5:04 PM EDT documented as of this encounter Care Teams Diamond Powder Mixer Relationship Specialty Start Date End Date Kinjal Barron FNP [address] [place] [address] PCP - General Family Medicine 03/06/25 documented as of this encounter
--- OUTSIDE RECORDS SUMMARY | 2025-11-17 11:22 | XMS_ITS | Encounter Summary ---
Author Organization [facility] Address [address] [place] [address] Care Team Providers Care Preforms Laminator Name Role Phone Kinjal Barron BROKE WORKER Primary Care Provid er Encounter Details Date Type Department Care Team (Late st Contact Info) Description 09/17/2025 Lab Requisition [facility] - Main Lab [address] [facility] [place] [address] Janice Núñez MD [address] [place], [place] [phone] Malignant neoplasm of unspecified part of left [...] [facility] [address] [place] [phone] Lashanda Mcgill, [address] [place] [address] documented as of this encounter Procedures Procedure [...] mmol/L LAB CHEMISTRY METHOD 09/18/2025 12:44 PM [facility] Potassium 4.1 3.5 - 5.5 mmol/L LAB CHEMISTRY METHOD 09/18/2025 12:44 PM [facility] Chloride 93(L) 96 - 110 mmol/L LAB CHEMISTRY METHOD 09/18/2025 12:44 PM [facility] CO2 39(H) 21 - 32 mmol/L LAB CHEMISTRY METHOD 09/18/2025 12:44 PM [facility] Anion Gap 7 3 - 11 LAB CHEMISTRY METHOD 09/18/2025 12:44 PM [facility] Glucose 64(L) 70 - 100 mg/dL LAB CHEMISTRY METHOD 09/18/2025 12:44 PM [facility] BUN 15 5 - 25 mg/dL LAB CHEMISTRY METHOD 09/18/2025 12:44 PM [facility] Creatinine 0.86 0.50 - 1.10 mg/dL LAB CHEMISTRY METHOD 09/18/2025 12:44 PM [facility] eGFR 72 >=60 mL/min/1. 73m2 LAB CHEMISTRY METHOD 09/18/2025 12:44 PM [facility] Comment:Calculation based on the Chronic Kidney Disease Epidemiology Collaboration (CKD-EPI) equation refit without adjustment for race. BUN/Creatinine Ratio 17.4 LAB CHEMISTRY METHOD 09/18/2025 12:44 PM EDT [facility] Calcium 9.9 8.5 - 10.5 mg/dL LAB CHEMISTRY METHOD 09/18/2025 12:44 PM T [facility] Blood Venous blood specimen / Unknown Venipuncture / Unknown 09/18/2025 5:01 AM EDT 09/18/2025 10:13 AM EDT us Janice Núñez MD LAB BLOOD ORDERABLES Final Resul t [facility] [address] [place] [address], [place] [phone] * (ABNORMAL) Complete blood count (09/18/2025 5:01 AM EDT) WBC 7.6 4.8 - 10.8 K/mcL LAB HEMETOLOGY METHOD 09/18/2025 11:08 AM [facility] RBC 3.60(L) 3.80 - 4.80 M/mcL LAB HEMETOLOGY METHOD 09/18/2025 11:08 AM [facility] Hemoglobin 10.3(L) 11.5 - 16.0 g/dL LAB HEMETOLOGY METHOD 09/18/2025 11:08 AM [facility] Hematocrit 35.4 35.0 - 47.0 % LAB HEMETOLOGY METHOD 09/18/2025 11:08 AM [facility] MCV 97.3 79.0 - 98.0 FL LAB HEMETOLOGY METHOD 09/18/2025 11:08 AM [facility] MCH 28.3 27.0 - 32.0 pcg LAB HEMETOLOGY METHOD 09/18/2025 11:08 AM [facility] MCHC 29.1(L) 32.0 - 37.0 g/dL LAB HEMETOLOGY METHOD 09/18/2025 11:08 AM EDT [facility] RDW 16.0(H) 11.0 - 15.0 % LAB HEMETOLOGY METHOD 09/18/2025 11:08 AM EDT [facility] Platelets 400 130 - 400 K/mcL LAB HEMETOLOGY METHOD 09/18/2025 11:08 AM EDT [facility] MPV 9.6 7.0 - 11.0 FL LAB HEMETOLOGY METHOD 09/18/2025 11:08 AM EDT [facility] NRBC 0.0 <1.0 % [facility] 09/18/2025 11:08 AM EDT [facility] NRBC Absolute 0.00 <0.10 K/mcL LAB HEMETOLOGY METHOD 09/18/2025 11:08 AM EDT [facility] Blood Venous blood specimen / Unknown Venipuncture / Unknown 09/18/2025 5:01 AM EDT 09/18/2025 10:13 AM EDT Janice Núñez MD LAB BLOOD ORDERABLES Final Resul t [facility] [address] [place] [address], documented in this encounter Visit Diagnoses Diagnosis Malignant neoplasm of unspecified part of left bronchus or lung (CMS/HCC V24, CMS/HCC V28) Chronic respiratory failure with hypercapnia (CMS/HCC V24, CMS/HCC V28) documented in this encounter Additional Health Concerns Assessment Noted Time PHQ-9 Depression Total Score: 1 07/19/20 25 5:04 PM EDT documented as of this encounter Care Teams Preforms Laminator Relationship Specialty Start Date End Date Kinjal Barron FNP [address] [place] [phone] PCP - General Family Medicine 03/06/25 documented as of this encounter
--- OUTSIDE RECORDS SUMMARY | 2025-11-17 11:22 | XMS_ITS | Encounter Summary ---
Author Organization [facility] Address [address] [place] [address] Care Team Providers Care Admissions Specialist Name Role Phone Kinjal Barron ENVIRONMENTAL SERVICES SPECIALIST Primary Care Provid er Encounter Details Date Type Department Care Team (Late st Contact Info) Description 09/10/[address] [facility] - Main Lab [address] [place] [address] Janice Núñez MD [address] [place], [place] [phone] Malignant neoplasm of unspecified part of left [...] 02/18/2026 10:30 AM EDT Office Visit [facility] Hematology Oncology [address] [place] [phone] Lashanda Mcgill, [address] [place] [address] documented as of this encounter Procedures Procedure [...] mmol/L LAB CHEMISTRY METHOD 09/11/2025 9:07 AM [facility] Potassium 3.8 3.5 - 5.5 mmol/L LAB CHEMISTRY METHOD 09/11/2025 9:07 AM [facility] Chloride 100 96 - 110 mmol/L LAB CHEMISTRY METHOD 09/11/2025 9:07 AM [facility] CO2 39(H) 21 - 32 mmol/L LAB CHEMISTRY METHOD 09/11/2025 9:07 AM [facility] Anion Gap 3 3 - 11 LAB CHEMISTRY METHOD 09/11/2025 9:07 AM [facility] Glucose 107(H) 70 - 100 mg/dL LAB CHEMISTRY METHOD 09/11/2025 9:07 AM [facility] BUN 9 5 - 25 mg/dL LAB CHEMISTRY METHOD 09/11/2025 9:07 AM [facility] Creatinine 0.82 0.50 - 1.10 mg/dL LAB CHEMISTRY METHOD 09/11/2025 9:07 AM [facility] eGFR 77 >=60 mL/min/1. 73m2 LAB CHEMISTRY METHOD 09/11/2025 9:07 AM [facility] Comment:Calculation based on [...] t [facility] [address] [place] [address], [place] [phone] * (ABNORMAL) Complete blood count (09/11/2025 5:56 AM EDT) WBC 4.7(L) 4.8 - 10.8 K/mcL LAB HEMETOLOGY METHOD 09/11/2025 8:48 AM T [facility] RBC 3.90 3.80 - 4.80 M/mcL LAB HEMETOLOGY METHOD 09/11/2025 8:48 AM [facility] Hemoglobin 10.8(L) 11.5 - 16.0 g/dL LAB HEMETOLOGY METHOD 09/11/2025 8:48 AM [facility] Hematocrit 37.7 35.0 - 47.0 % LAB HEMETOLOGY METHOD 09/11/2025 8:48 AM T [facility] MCV 95.9 79.0 - 98.0 FL LAB HEMETOLOGY METHOD 09/11/2025 8:48 AM [facility] MCH 27.5 27.0 - 32.0 [...] t [facility] [address] [place] [address], documented in this encounter Visit Diagnoses Diagnosis Malignant neoplasm of unspecified part of left bronchus or lung (CMS/HCC V24, CMS/HCC V28) Chronic respiratory failure with hypercapnia (CMS/HCC V24, CMS/HCC V28) documented in this encounter Additional Health Concerns Assessment Noted Time PHQ-9 Depression Total Score: 1 07/19/20 25 5:04 PM EDT documented as of this encounter Care Teams Admissions Specialist Relationship Specialty Start Date End Date Kinjal Barron FNP [address] [place] [phone] PCP - General Family Medicine 03/06/25 documented as of this encounter
--- OUTSIDE RECORDS SUMMARY | 2025-11-17 11:22 | XMS_ITS | Encounter Summary ---
Author Organization [facility] Address [address] [place] [address] Care Team Providers Care Brick Washer Name Role Phone Kinjal Barron SIGN FABRICATOR Primary Care Provid er Encounter Details Date Type Department Care Team (Late st Contact Info) Description 11/12/2025 Lab Requisition [facility] - Main Lab [address] [place] [address] Janice Núñez MD [address] [place], [place] [phone] Malignant neoplasm of unspecified part of left [...] [facility] Hematology Oncology [address] [place] [phone] Lashanda Mcgill, [address] [place] [address] documented as of this encounter Procedures Procedure Name Priority Date/Time Associated Diagnosis Comments COMPLETE BLOOD COUNT Routine 11/13/2025 7:56 AM EST Malignant neoplasm of unspecified part of left bronchus or lung (CMS/HCC V24, CMS/HCC V28) Chronic respiratory failure with hypercapnia (CMS/HCC V24, CMS/HCC V28) BASIC METABOLIC PANEL Routine 11/13/2025 7:56 AM EST Malignant neoplasm of unspecified part of left bronchus or lung (CMS/HCC V24, CMS/HCC V28) Chronic respiratory failure with hypercapnia (CMS/HCC V24, CMS/HCC V28) documented in this encounter Results * (ABNORMAL) Basic metabolic panel (11/13/2025 7:56 AM EST) Sodium 141 133 - 145 mmol/L 11/13/2025 11:32 AM [facility] Potassium 3.1(L) 3.5 - 5.5 mmol/L 11/13/2025 11:32 AM [facility] Chloride 90(L) 96 - 110 mmol/L 11/13/2025 11:32 AM [facility] CO2 40(H) 21 - 32 mmol/L 11/13/2025 11:32 AM [facility] Anion Gap 11 3 - 11 11/13/2025 11:32 AM [facility] Glucose 128(H) 70 - 100 mg/dL 11/13/2025 11:32 AM [facility] BUN 25 5 - 25 mg/dL 11/13/2025 11:32 AM [facility] Creatinine 1.12(H) 0.50 - 1.10 mg/dL 11/13/2025 11:32 AM [facility] eGFR 53(L) >=60 mL/min/1. 73m2 11/13/2025 11:32 AM [facility] Comment:Calculation based on the Chronic Kidney Disease Epidemiology Collaboration (CKD-EPI) equation refit without adjustment for race. BUN/Creatinine Ratio 22.3 11/13/2025 11:32 AM [facility] Calcium 8.8 8.5 - 10.5 mg/dL 11/13/2025 11:32 AM [facility] Blood Venous blood specimen / Unknown Venipuncture / Unknown 11/13/2025 7:56 AM EST 11/13/2025 10:13 AM EST us Janice Núñez MD LAB BLOOD ORDERABLES Final Resul t [facility] [address] [place] [address], * (ABNORMAL) Complete blood count (11/13/2025 7:56 AM EST) WBC 7.6 4.8 - 10.8 K/mcL LAB HEMETOLOGY METHOD 11/13/2025 11:04 AM [facility] RBC 3.00(L) 3.80 - 4.80 M/mcL LAB HEMETOLOGY METHOD 11/13/2025 11:04 AM [facility] Hemoglobin 7.6(L) 11.5 - 16.0 g/dL LAB HEMETOLOGY METHOD 11/13/2025 11:04 AM [facility] Hematocrit 26.6(L) 35.0 - 47.0 % LAB HEMETOLOGY METHOD 11/13/2025 11:04 AM [facility] MCV 89.9 79.0 - 98.0 FL LAB HEMETOLOGY METHOD 11/13/2025 11:04 AM [facility] MCH 25.7(L) 27.0 - 32.0 pcg LAB HEMETOLOGY METHOD 11/13/2025 11:04 AM [facility] MCHC 28.6(L) 32.0 - 37.0 g/dL LAB HEMETOLOGY METHOD 11/13/2025 11:04 AM [facility] RDW 16.2(H) 11.0 - 15.0 % LAB HEMETOLOGY METHOD 11/13/2025 11:04 AM EST [facility] Platelets 497(H) 130 - 400 K/mcL LAB HEMETOLOGY METHOD 11/13/2025 11:04 AM EST [facility] MPV 9.4 7.0 - 11.0 FL LAB HEMETOLOGY METHOD 11/13/2025 11:04 AM EST [facility] NRBC 0.0 <1.0 % LAB HEMETOLOGY METHOD 11/13/2025 11:04 AM EST [facility] NRBC Absolute 0.00 <0.10 K/mcL LAB HEMETOLOGY METHOD 11/13/2025 11:04 AM [facility] Blood Venous blood specimen / Unknown Venipuncture / Unknown 11/13/2025 7:56 AM EST 11/13/2025 10:13 AM EST us Janice Núñez MD LAB BLOOD ORDERABLES Final Resul t [facility] [address] [place] [address], documented in this encounter Visit Diagnoses Diagnosis Malignant neoplasm of unspecified part of left bronchus or lung (CMS/HCC V24, CMS/HCC V28) Chronic respiratory failure with hypercapnia (CMS/HCC V24, CMS/HCC V28) documented in this encounter Additional Health Concerns Assessment Noted Time PHQ-9 Depression Total Score: 1 07/19/20 25 5:04 PM EDT documented as of this encounter Care Teams Brick Washer Relationship Specialty Start Date End Date Kinjal Barron FNP [address] [place] [phone] PCP - General Family Medicine 03/06/25 documented as of this encounter
--- OUTSIDE RECORDS SUMMARY | 2025-11-17 11:22 | XMS_ITS | Encounter Summary ---
Author Organization [facility] Address [address] [place] [address] Care Team Providers Care Flight Crew Scheduler Name Role Phone Kinjal Barron STRING WINDING MACHINE OPERATOR Primary Care Provid er Encounter Details Date Type Department Care Team (Late st Contact Info) Description 10/16/[address] [facility] - Main Lab [address] [place] [address] Janice Núñez MD [address] [place], [place] [phone] Dysuria Social History Tobacco Use Types Packs/Day [...] [facility] Hematology Oncology [address] [place] [phone] Lashanda Mcgill, DO [address] [place] [address] documented as of this encounter Procedures Procedure Name Priority Date/Time Associated Diagnosis Comments URINALYSIS WITH REFLEX MICROSCOPIC Routine 10/16/2025 12:00 AM EST Dysuria URINALYSIS WITH REFLEX MICROSCOPIC Routine 10/16/2025 12:00 AM EST Dysuria CULTURE URINE Routine 10/16/2025 12:00 AM EST Dysuria documented in this encounter Results * (ABNORMAL) Urinalysis with reflex microscopic (10/16/2025 12:00 AM EST) Specific [place] Urine 1.015 1.003 - 1.030 LAB URINALYSIS - AUTOMATED METHOD 10/16/2025 11:46 AM [facility] pH, Urine 7.5 5.0 - 8.0 pH LAB URINALYSIS - AUTOMATED METHOD 10/16/2025 11:46 AM [facility] Leukocytes, Urine Large(A) Negative LAB URINALYSIS - AUTOMATED METHOD 10/16/2025 11:46 AM [facility] Nitrite, Urine Negative Negative LAB URINALYSIS - AUTOMATED METHOD 10/16/2025 11:46 AM [facility] Protein, Urine 100(A) <=Trace mg/dL LAB URINALYSIS - AUTOMATED METHOD 10/16/2025 11:46 AM [facility] Glucose, Urine Negative Negative mg/dL LAB URINALYSIS - AUTOMATED METHOD 10/16/2025 11:46 AM [facility] Ketones, Urine Negative Negative mg/dL LAB URINALYSIS - AUTOMATED METHOD 10/16/2025 11:46 AM [facility] Urobilinogen , Urine 0.2 0.2 - 1.0 mg/dL LAB URINALYSIS - AUTOMATED METHOD 10/16/2025 11:46 AM [facility] Bilirubin, Urine Negative Negative LAB URINALYSIS - AUTOMATED METHOD 10/16/2025 11:46 AM [facility] Blood, Urine Moderate(A) Negative LAB URINALYSIS - AUTOMATED METHOD 10/16/2025 11:46 AM [facility] RBC, Urine 20(H) 0 - 4 /HPF 10/16/2025 11:46 AM [facility] WBC, Urine 30(H) 0 - 4 /HPF 10/16/2025 11:[address] [facility] Squamous Epithelial, Urine 2 0 - 60 /LPF 10/16/2025 11:[address] [facility] Non-Squamous Epithelial, Urine 2-5 Transitional epithelial cells. /LPF 10/16/2025 11:[address] [facility] Bacteria, Urine Moderate(A) Negative /HPF 10/16/2025 11:[address] [facility] Urine Urine specimen from urethra / Unknown Non-blood Collection / Unknown 10/16/2025 10/16/2025 10:00 AM EST Janice Núñez MD LAB URINE ORDERABLES Final Resul t [facility] [address] [place] [address], * (ABNORMAL) Culture urine (10/16/2025 12:00 AM EST) Culture, Urine 50,000-100,000 CFU/mL Klebsiella aerogenes(A) SERGIO 10/18/2025 10:[address] [facility] Comment: This is an edited [...] MICROBIOLOGY - GENERAL ORDER KANE Final Result [facility] [address] [place] [address], documented in this encounter Visit Diagnoses Diagnosis Dysuria documented in this encounter Additional Health Concerns Assessment Noted Time PHQ-9 Depression Total Score: 1 07/19/20 25 5:04 PM EDT documented as of this encounter Care Teams Flight Crew Scheduler Relationship Specialty Start Date End Date Kinjal Barron FNP [address] [place] [phone] PCP - General Family Medicine 03/06/25 documented as of this encounter
--- OUTSIDE RECORDS SUMMARY | 2025-11-17 11:22 | XMS_ITS | Encounter Summary ---
Author Organization [facility] Address [address] [place] [address] Care Team Providers Care Orthodontic Lab Technician Name Role Phone Kinjal Barron MUNITIONS FACTORY WORKER Primary Care Provid er Encounter Details Date Type Department Care Team (Late st Contact Info) Description 08/30/2025 Lab Requisition [facility] - Main Lab [address] [facility] [place] [address] Janice Núñez MD [address] [place] [address] Hyperkalemia Social History Tobacco Use Types Packs/Day [...] [facility] Hematology Oncology [address] [place] [phone] Lashanda Mcgill, DO [address] [place] [address] documented as of this encounter Procedures Procedure Name Priority Date/Time Associated Diagnosis Comments BASIC METABOLIC PANEL Routine 08/30/2025 6:02 AM EDT Hyperkalemia documented in this encounter Results * (ABNORMAL) Basic metabolic panel (08/30/2025 6:02 AM EDT) Sodium 140 133 - 145 mmol/L LAB CHEMISTRY METHOD 08/30/2025 2:28 PM [facility] Potassium 3.5 3.5 - 5.5 mmol/L LAB CHEMISTRY METHOD 08/30/2025 2:28 PM [facility] Chloride 99 96 - 110 mmol/L LAB CHEMISTRY METHOD 08/30/2025 2:28 PM [facility] CO2 35(H) 21 - 32 mmol/L LAB CHEMISTRY METHOD 08/30/2025 2:28 PM [facility] Anion Gap 6 3 - 11 LAB CHEMISTRY METHOD 08/30/2025 2:28 PM [facility] Glucose 86 70 - 100 mg/dL LAB CHEMISTRY METHOD 08/30/2025 2:28 PM [facility] BUN 13 5 - 25 mg/dL LAB CHEMISTRY METHOD 08/30/2025 2:28 PM [facility] Creatinine 0.85 0.50 - 1.10 mg/dL LAB CHEMISTRY METHOD 08/30/2025 2:28 PM [facility] eGFR 73 >=60 mL/min/1. 73m2 LAB CHEMISTRY METHOD 08/30/2025 2:28 PM [facility] Comment:Calculation based on the Chronic Kidney Disease Epidemiology Collaboration (CKD-EPI) equation refit without adjustment for race. BUN/Creatinine Ratio 15.3 LAB CHEMISTRY METHOD 08/30/2025 2:28 PM [facility] Calcium 8.7 8.5 - 10.5 mg/dL LAB CHEMISTRY METHOD 08/30/2025 2:28 PM [facility] Blood Venous blood specimen / Unknown Venipuncture / Unknown 08/30/2025 6:02 AM EDT 08/30/2025 9:37 AM EDT Janice Núñez MD LAB BLOOD ORDERABLES Final Resul t [facility] [address] [place] [address], documented in this encounter Visit Diagnoses Diagnosis Hyperkalemia Hyperpotassemia documented in this encounter Additional Health Concerns Infection Onset Date Last Indicated Resolved Time Respiratory Rule-Out 09/05/2025 09/05/2025 025 3:59 PM EDT COVID-19 Rule-Out 09/05/2025 09/05/2025 09/05/2025 3:59 PM EDT Assessment Noted Time PHQ-9 Depression Total Score: 1 07/19/20 25 5:04 PM EDT documented as of this encounter Care Teams Orthodontic Lab Technician Relationship Specialty Start Date End Date Kinjal Barron FNP [address] [place] [phone] PCP - General Family Medicine 03/06/25 documented as of this encounter
--- OUTSIDE RECORDS SUMMARY | 2025-11-17 11:22 | XMS_ITS | Encounter Summary ---
Author Organization [facility] Address [address] [place] [address] Care Team Providers Care Organ Tuner Name Role Phone Kinjal Barron BODY ARTIST Primary Care Provid er Encounter Details Date Type Department Care Team (Late st Contact Info) Description 09/01/2025 Lab Requisition [facility] - Main Lab [address] [place] [address] Janice Núñez MD [address] [place], [place] [phone] Frequency of micturition; Fever, unspecified Social History [...] Description 02/18/2026 10:30 AM EDT Office Visit [facility] Hematology Oncology [address] [place] [phone] Lashanda Mcgill, [address] [place] [address] documented as of this encounter Procedures Procedure [...] reflex microscopic (08/31/2025 4:00 PM EDT) Specific [place] Urine 1.008 1.003 - 1.030 LAB URINALYSIS - AUTOMATED METHOD 09/01/2025 10:46 AM [facility] pH, Urine 6.5 5.0 - 8.0 pH LAB URINALYSIS - AUTOMATED METHOD 09/01/2025 10:46 AM [facility] Leukocytes, Urine Trace(A) Negative LAB URINALYSIS - AUTOMATED METHOD 09/01/2025 10:46 AM [facility] Nitrite, Urine Negative Negative LAB URINALYSIS - AUTOMATED METHOD 09/01/2025 10:46 AM [facility] Protein, Urine Negative <=Trace mg/dL LAB URINALYSIS - AUTOMATED METHOD 09/01/2025 10:46 AM [facility] Glucose, Urine Negative Negative mg/dL LAB URINALYSIS - AUTOMATED METHOD 09/01/2025 10:46 AM [facility] Ketones, Urine Negative Negative mg/dL LAB URINALYSIS - AUTOMATED METHOD 09/01/2025 10:46 AM [facility] Urobilinogen, Urine 0.2 0.2 - 1.0 mg/dL LAB URINALYSIS - AUTOMATED METHOD 09/01/2025 10:46 AM [facility] Bilirubin, Urine Negative Negative LAB URINALYSIS - AUTOMATED METHOD 09/01/2025 10:46 AM [facility] Blood, Urine Small(A) Negative LAB URINALYSIS - AUTOMATED METHOD 09/01/2025 10:46 AM [facility] RBC, Urine 1.0 0 - 4 /HPF LAB URINALYSIS - AUTOMATED METHOD 09/01/2025 10:46 AM EDT [facility] WBC, Urine 7.0(H) 0 - 4 /HPF LAB URINALYSIS - AUTOMATED METHOD 09/01/2025 10:46 AM EDT [facility] Squamous Epithelial, Urine 10 0 - 60 /LPF LAB URINALYSIS - AUTOMATED METHOD 09/01/2025 10:46 AM EDT [facility] Bacteria, Urine Negative Negative /HPF LAB URINALYSIS - AUTOMATED METHOD 09/01/2025 10:46 AM EDT [facility] Hyaline Casts, Urine 0.4 0 - 3 /LPF LAB URINALYSIS - AUTOMATED METHOD 09/01/2025 10:46 AM EDT [facility] Urine Urine specimen obtained by clean catch procedure / Unknown Non-blood Collection / Unknown 08/31/2025 4:00 PM EDT 09/01/2025 10:18 AM EDT us Janice Núñez MD LAB URINE ORDERABLES Final Resul t Performing Organization Address City/[facility]/ZIP Co de Phone Number [facility] [address] [place] [address], [place] [phone] * Culture urine (08/31/2025 4:00 PM EDT) Culture, Urine <10,000 CFU/mL gram positive cocci, insignificant count, no further workup 09/02/2025 11:17 AM EDT [facility] Urine Urine specimen obtained by clean catch procedure / Unknown Non-blood Collection / Unknown 08/31/2025 4:00 PM EDT 09/01/2025 10:18 AM EDT us Janice Núñez MD LAB MICROBIOLOGY - GENERAL ORDER KANE Final Result [facility] [address] [place] [address], documented in this encounter Visit Diagnoses Diagnosis [...] documented as of this encounter Care Teams Organ Tuner Relationship Specialty Start Date End Date Kinjal Barron FNP [address] [place] [phone] PCP - General Family Medicine 03/06/25 documented as of this encounter
--- OUTSIDE RECORDS SUMMARY | 2025-11-17 11:22 | XMS_ITS | Encounter Summary ---
Author Organization [facility] Address [address] [place] [address] Care Team Providers Care Diagnostic Tech Name Role Phone Kinjal Barron SEALING MACHINE OPERATOR Primary Care Provid er Encounter Details Date Type Department Care Team (Late st Contact Info) Description 09/09/2025 Lab Requisition [facility] - Main Lab [address] [place] [address] Janice Núñez MD [address] [place], [place] [phone] Chronic obstructive pulmonary disease, unspecified (CMS/HCC V24, [...] EDT Office Visit [facility] Hematology Oncology [address] [place] [phone] Lashanda Mcgill, [address] [place] [address] documented as of this encounter Procedures Procedure Name Priority Date/Time Associated Diagnosis Comments BASIC METABOLIC PANEL Routine 09/09/2025 7:29 AM EDT Chronic obstructive pulmonary disease, unspecified ([facility] V24, [facility] V28) Malignant neoplasm of unspecified part of unspecified bronchus or lung ([facility] V24, [facility] V28) documented in this encounter Results * (ABNORMAL) Basic metabolic panel (09/09/2025 7:29 AM EDT) Sodium 141 133 - 145 mmol/L LAB CHEMISTRY METHOD 09/09/2025 2:03 PM [facility] Potassium 3.7 3.5 - 5.5 mmol/L LAB CHEMISTRY METHOD 09/09/2025 2:03 PM [facility] Chloride 98 96 - 110 mmol/L LAB CHEMISTRY METHOD 09/09/2025 2:03 PM [facility] CO2 39(H) 21 - 32 mmol/L LAB CHEMISTRY METHOD 09/09/2025 2:03 PM [facility] Anion Gap 4 3 - 11 LAB CHEMISTRY METHOD 09/09/2025 2:03 PM [facility] Glucose 80 70 - 100 mg/dL LAB CHEMISTRY METHOD 09/09/2025 2:03 PM [facility] BUN 10 5 - 25 mg/dL LAB CHEMISTRY METHOD 09/09/2025 2:03 PM [facility] Creatinine 0.69 0.50 - 1.10 mg/dL LAB CHEMISTRY METHOD 09/09/2025 2:03 PM [facility] eGFR 93 >=60 mL/min/1. 73m2 LAB CHEMISTRY METHOD 09/09/2025 2:03 PM [facility] Comment:Calculation based on the Chronic Kidney Disease Epidemiology Collaboration (CKD-EPI) equation refit without adjustment for race. BUN/Creatinine Ratio 14.5 LAB CHEMISTRY METHOD 09/09/2025 2:03 PM [facility] Calcium 8.8 8.5 - 10.5 mg/dL LAB CHEMISTRY METHOD 09/09/2025 2:03 PM EDT [facility] Blood Venous blood specimen / Unknown Venipuncture / Unknown 09/09/2025 7:29 AM EDT 09/09/2025 12:28 PM EDT us Janice Núñez MD LAB BLOOD ORDERABLES Final Resul t [facility] [address] [place] [address], documented in this encounter Visit Diagnoses Diagnosis Chronic obstructive pulmonary disease, unspecified (CMS/HCC V24, CMS/HCC V28) Malignant neoplasm of unspecified part of unspecified bronchus or lung (CMS/HCC V24, CMS/HCC V28) documented in this encounter Additional Health Concerns Assessment Noted Time PHQ-9 Depression Total Score: 1 07/19/20 5:04 PM EDT documented as of this encounter Care Teams Diagnostic Tech Relationship Specialty Start Date End Date Kinjal Barron FNP [address] [place] [phone] PCP - General Family Medicine 03/06/25 documented as of this encounter
--- OUTSIDE RECORDS SUMMARY | 2025-11-17 11:22 | XMS_ITS | Encounter Summary ---
Author Organization [facility] Address [address] [place] [address] Care Team Providers Care Gluing Machine Offbearer Name Role Phone Kinjal Barron CLIENT LIAISON Primary Care Provid er Encounter Details Date Type Department Care Team (Late st Contact Info) Description 09/24/2025 Lab Requisition [facility] - Main Lab [address] [place] [address] Janice Núñez MD [address] [place], [place] [phone] Malignant neoplasm of unspecified part of left [...] [facility] [place] Hematology Oncology [address] [place] [phone] Lashanda Mcgill, [address] [place] [address] documented as of this encounter Procedures Procedure [...] mmol/L LAB CHEMISTRY METHOD 09/25/2025 3:46 PM [facility] Potassium 3.3(L) 3.5 - 5.5 mmol/L LAB CHEMISTRY METHOD 09/25/2025 3:46 PM [facility] Chloride 93(L) 96 - 110 mmol/L LAB CHEMISTRY METHOD 09/25/2025 3:46 PM [facility] CO2 44(HH) 21 - 32 mmol/L LAB CHEMISTRY METHOD 09/25/2025 3:46 PM [facility] Anion Gap 4 3 - 11 LAB CHEMISTRY METHOD 09/25/2025 3:46 PM [facility] Glucose 71 70 - 100 mg/dL LAB CHEMISTRY METHOD 09/25/2025 3:46 PM [facility] BUN 17 5 - 25 mg/dL LAB CHEMISTRY METHOD 09/25/2025 3:46 PM [facility] Creatinine 0.86 0.50 - 1.10 mg/dL LAB CHEMISTRY METHOD 09/25/2025 3:46 PM [facility] eGFR 72 >=60 mL/min/1. 73m2 LAB CHEMISTRY METHOD 09/25/2025 3:46 PM [facility] Comment:Calculation based on the Chronic Kidney Disease Epidemiology Collaboration (CKD-EPI) equation refit without adjustment for race. BUN/Creatinine Ratio 19.8 LAB CHEMISTRY METHOD 09/25/2025 3:46 PM EDT [facility] Calcium 9.3 8.5 - 10.5 mg/dL LAB CHEMISTRY METHOD 09/25/2025 3:46 PM EDT [facility] Blood Venous blood specimen / Unknown Venipuncture / Unknown 09/25/2025 6:14 AM EDT 09/25/2025 12:02 PM EDT us Janice Núñez MD LAB BLOOD ORDERABLES Final Resul t [facility] [address] [place] [address], [place] [phone] * (ABNORMAL) Complete blood count (09/25/2025 6:14 AM EDT) WBC 8.5 4.8 - 10.8 K/mcL LAB HEMETOLOGY METHOD 09/25/2025 12:36 PM EDT [facility] RBC 3.50(L) 3.80 - 4.80 M/mcL LAB HEMETOLOGY METHOD 09/25/2025 12:36 PM EDT [facility] Hemoglobin 10.0(L) 11.5 - 16.0 g/dL LAB HEMETOLOGY METHOD 09/25/2025 12:36 PM EDT [facility] Hematocrit 35.0 35.0 - 47.0 % LAB HEMETOLOGY METHOD 09/25/2025 12:36 PM EDT [facility] MCV 100.9(H) 79.0 - 98.0 FL LAB HEMETOLOGY METHOD 09/25/2025 12:36 PM EDT [facility] MCH 28.8 27.0 - 32.0 pcg LAB HEMETOLOGY METHOD 09/25/2025 12:36 PM EDT [facility] MCHC 28.6(L) 32.0 - 37.0 g/dL LAB HEMETOLOGY METHOD 09/25/2025 12:36 PM EDT [facility] RDW 16.9(H) 11.0 - 15.0 % LAB HEMETOLOGY METHOD 09/25/2025 12:36 PM EDT [facility] Platelets 358 130 - 400 K/mcL LAB HEMETOLOGY METHOD 09/25/2025 12:36 PM EDT [facility] MPV 9.6 7.0 - 11.0 FL LAB HEMETOLOGY METHOD 09/25/2025 12:36 PM EDT [facility] NRBC 0.2 <1.0 % LAB HEMETOLOGY METHOD 09/25/2025 12:36 PM EDT [facility] NRBC Absolute 0.02 <0.10 K/mcL LAB HEMETOLOGY METHOD 09/25/2025 12:36 PM EDT [facility] Blood Venous blood specimen / Unknown Venipuncture / Unknown 09/25/2025 6:14 AM EDT 09/25/2025 10:26 AM EDT us Janice Núñez MD LAB BLOOD ORDERABLES Final Resul t [facility] [address] [place] [address], documented in this encounter Visit Diagnoses Diagnosis Malignant neoplasm of unspecified part of left bronchus or lung (CMS/HCC V24, CMS/HCC V28) Chronic respiratory failure with hypercapnia (CMS/HCC V24, CMS/HCC V28) documented in this encounter Additional Health Concerns Assessment Noted Time PHQ-9 Depression Total Score: 1 07/19/20 25 5:04 PM EDT documented as of this encounter Care Teams Gluing Machine Offbearer Relationship Specialty Start Date End Date Kinjal Barron FNP [address] [place] [phone] PCP - General Family Medicine 03/06/25 documented as of this encounter
--- OUTSIDE RECORDS SUMMARY | 2025-11-17 11:22 | XMS_ITS | Encounter Summary ---
Author Organization [facility] Address [address] [place] [address] Care Team Providers Care Synthetic Filament Spinner Name Role Phone Kinjal Barron MARKETING INFORMATION ANALYST Primary Care Provid er Encounter Details Date Type Department Care Team (Late st Contact Info) Description 10/15/2025 Lab Requisition [facility] - Main Lab [address] [place] [address] Janice Núñez MD [address] [place], [place] [phone] Malignant neoplasm of unspecified part of left [...] [facility] Hematology Oncology [address] [place] [phone] Lashanda Mcgill, [address] [place] [address] documented as of this encounter Procedures Procedure [...] 133 - 145 mmol/L 10/16/2025 12:36 PM [facility] Potassium 3.6 3.5 - 5.5 mmol/L 10/16/2025 12:36 PM [facility] Chloride 93(L) 96 - 110 mmol/L 10/16/2025 12:36 PM [facility] CO2 >40(HH) 21 - 32 mmol/L 10/16/2025 12:36 PM [facility] Anion Gap <8 3 - 11 10/16/2025 12:36 PM [facility] Glucose 73 70 - 100 mg/dL 10/16/2025 12:36 PM [facility] BUN 17 5 - 25 mg/dL 10/16/2025 12:36 PM [facility] Creatinine 0.89 0.50 - 1.10 mg/dL 10/16/2025 12:36 PM [facility] eGFR 69 >=60 mL/min/1. 73m2 10/16/2025 12:36 PM [facility] Comment:Calculation based on the Chronic Kidney Disease Epidemiology Collaboration (CKD-EPI) equation refit without adjustment for race. BUN/Creatinine Ratio 19.1 10/16/2025 12:36 PM [facility] Calcium 8.4(L) 8.5 - 10.5 mg/dL 10/16/2025 12:36 PM [facility] Blood Venous blood specimen / Unknown Venipuncture / Unknown 10/16/2025 5:37 AM EST 10/16/2025 9:38 AM EST us Janice Núñez MD LAB BLOOD ORDERABLES Final Resul t [facility] [address] [place] [address], * (ABNORMAL) Complete blood count (10/16/2025 5:37 AM EST) WBC 8.1 4.8 - 10.8 K/mcL LAB HEMETOLOGY METHOD 10/16/2025 10:28 AM [facility] RBC 2.80(L) 3.80 - 4.80 [facility] LAB HEMETOLOGY METHOD 10/16/2025 10:28 AM [facility] Hemoglobin 8.0(L) 11.5 - 16.0 g/dL LAB HEMETOLOGY METHOD 10/16/2025 10:28 AM [facility] Hematocrit 27.8(L) 35.0 - 47.0 % LAB HEMETOLOGY METHOD 10/16/2025 10:28 AM [facility] MCV 98.9(H) 79.0 - 98.0 FL LAB HEMETOLOGY METHOD 10/16/2025 10:28 AM [facility] MCH 28.5 27.0 - 32.0 pcg LAB HEMETOLOGY METHOD 10/16/2025 10:28 AM [facility] MCHC 28.8(L) 32.0 - 37.0 g/dL LAB HEMETOLOGY METHOD 10/16/2025 10:28 AM [facility] RDW 15.3(H) 11.0 - 15.0 % LAB HEMETOLOGY METHOD 10/16/2025 10:28 AM EST [facility] Platelets 400 130 - 400 K/mcL LAB HEMETOLOGY METHOD 10/16/2025 10:28 AM EST [facility] MPV 9.2 7.0 - 11.0 FL LAB HEMETOLOGY METHOD 10/16/2025 10:28 AM EST [facility] NRBC 0.0 <1.0 % LAB HEMETOLOGY METHOD 10/16/2025 10:28 AM [facility] NRBC Absolute 0.00 <0.10 K/mcL LAB HEMETOLOGY METHOD 10/16/2025 10:28 AM [facility] Blood Venous blood specimen / Unknown Venipuncture / Unknown 10/16/2025 5:37 AM EST 10/16/2025 9:38 AM EST us Janice Núñez MD LAB BLOOD ORDERABLES Final Resul t [facility] [address] [place] [address], documented in this encounter Visit Diagnoses Diagnosis Malignant neoplasm of unspecified part of left bronchus or lung (CMS/HCC V24, CMS/HCC V28) Chronic respiratory failure with hypercapnia (CMS/HCC V24, CMS/HCC V28) documented in this encounter Additional Health Concerns Assessment Noted Time PHQ-9 Depression Total Score: 1 07/19/20 25 5:04 PM EDT documented as of this encounter Care Teams Synthetic Filament Spinner Relationship Specialty Start Date End Date Kinjal Barron FNP [address] [place] [phone] PCP - General Family Medicine 03/06/25 documented as of this encounter
--- OUTSIDE RECORDS SUMMARY | 2025-11-17 11:22 | XMS_ITS | Encounter Summary ---
Author Organization [facility] Address [address] [place] [address] Care Team Providers Care Polysomnography Technologist Name Role Phone Kinjal Barron HOME ENERGY RATER Primary Care Provid er Encounter Details Date Type Department Care Team (Late st Contact Info) Description 10/08/2025 Lab Requisition [facility] - Main Lab [address] [place] [address] Janice Núñez MD [address] [place], [place] [phone] Malignant neoplasm of unspecified part of left [...] 02/18/2026 10:30 AM EDT Office Visit [facility] Hematology Oncology [address] [place] [phone] Lashanda Mcgill, [address] [place] [address] documented as of this encounter Procedures Procedure [...] mmol/L LAB CHEMISTRY METHOD 10/09/2025 11:49 AM [facility] Potassium 3.6 3.5 - 5.5 mmol/L LAB CHEMISTRY METHOD 10/09/2025 11:49 AM [facility] Chloride 95(L) 96 - 110 mmol/L LAB CHEMISTRY METHOD 10/09/2025 11:49 AM [facility] CO2 42(HH) 21 - 32 mmol/L LAB CHEMISTRY METHOD 10/09/2025 11:49 AM [facility] Anion Gap 3 3 - 11 LAB CHEMISTRY METHOD 10/09/2025 11:49 AM [facility] Glucose 89 70 - 100 mg/dL LAB CHEMISTRY METHOD 10/09/2025 11:49 AM [facility] BUN 12 5 - 25 mg/dL LAB CHEMISTRY METHOD 10/09/2025 11:49 AM [facility] Creatinine 0.78 0.50 - 1.10 mg/dL LAB CHEMISTRY METHOD 10/09/2025 11:49 AM [facility] eGFR 81 >=60 mL/min/1. 73m2 LAB CHEMISTRY METHOD 10/09/2025 11:49 AM [facility] Comment:Calculation based on the Chronic Kidney Disease Epidemiology Collaboration (CKD-EPI) equation refit without adjustment for race. BUN/Creatinine Ratio 15.4 LAB CHEMISTRY METHOD 10/09/2025 11:49 AM [facility] Calcium 8.6 8.5 - 10.5 mg/dL LAB CHEMISTRY METHOD 10/09/2025 11:49 AM [facility] Blood Venous blood specimen / Unknown Venipuncture / Unknown 10/09/2025 5:27 AM EST 10/09/2025 10:52 AM EST us Janice Núñez MD LAB BLOOD ORDERABLES Final Resul t [facility] [address] [place] [address], [place] [phone] * (ABNORMAL) Complete blood count (10/09/2025 5:27 AM EST) WBC 6.7 4.8 - 10.8 K/mcL LAB HEMETOLOGY METHOD 10/09/2025 11:05 AM [facility] RBC 3.10(L) 3.80 - 4.80 M/mcL LAB HEMETOLOGY METHOD 10/09/2025 11:05 AM [facility] Hemoglobin 8.9(L) 11.5 - 16.0 g/dL LAB HEMETOLOGY METHOD 10/09/2025 11:05 AM [facility] Hematocrit 31.3(L) 35.0 - 47.0 % LAB HEMETOLOGY METHOD 10/09/2025 11:05 AM [facility] MCV 100.0(H) 79.0 - 98.0 FL LAB HEMETOLOGY METHOD 10/09/2025 11:05 AM [facility] MCH 28.4 27.0 - 32.0 pcg LAB HEMETOLOGY METHOD 10/09/2025 11:05 AM [facility] MCHC 28.4(L) 32.0 - 37.0 g/dL LAB HEMETOLOGY METHOD 10/09/2025 11:05 AM EST [facility] RDW 16.5(H) 11.0 - 15.0 % LAB HEMETOLOGY METHOD 10/09/2025 11:05 AM [facility] Platelets 415(H) 130 - 400 K/mcL LAB HEMETOLOGY METHOD 10/09/2025 11:05 AM [facility] MPV 9.4 7.0 - 11.0 FL LAB HEMETOLOGY METHOD 10/09/2025 11:05 AM [facility] NRBC 0.0 <1.0 % LAB HEMETOLOGY METHOD 10/09/2025 11:05 AM [facility] NRBC Absolute 0.00 <0.10 K/mcL LAB HEMETOLOGY METHOD 10/09/2025 11:05 AM [facility] Blood Venous blood specimen / Unknown Venipuncture / Unknown 10/09/2025 5:27 AM EST 10/09/2025 10:53 AM EST us Janice Núñez MD LAB BLOOD ORDERABLES Final Resul t [facility] [address] [place] [address], documented in this encounter Visit Diagnoses Diagnosis Malignant neoplasm of unspecified part of left bronchus or lung (CMS/HCC V24, CMS/HCC V28) Chronic respiratory failure with hypercapnia (CMS/HCC V24, CMS/HCC V28) documented in this encounter Additional Health Concerns Assessment Noted Time PHQ-9 Depression Total Score: 1 07/19/20 25 5:04 PM EDT documented as of this encounter Care Teams Polysomnography Technologist Relationship Specialty Start Date End Date Kinjal Barron FNP [address] [place] [phone] PCP - General Family Medicine 03/06/25 documented as of this encounter
--- OUTSIDE RECORDS SUMMARY | 2025-11-17 11:22 | XMS_ITS | Encounter Summary ---
Author Organization [facility] Address [address] [place] [address] Care Team Providers Care Access Developer Name Role Phone Kinjal Barron BANQUET COOK Primary Care Provid er Encounter Details Date Type Department Care Team (Late st Contact Info) Description 10/19/2024 Lab Requisition [facility] - Main Lab [address] [place] [address] Janice Núñez MD [address] [place], [place] [phone] Chronic obstructive pulmonary disease, unspecified (CMS/HCC V24, [...] Description 02/18/2026 10:30 AM EDT Office Visit [facility] Hematology Oncology [address] [place] [phone] Lashanda Mcgill, DO [address] [place] [address] documented as of this encounter Procedures Procedure Name Priority Date/Time Associated Diagnosis Comments COMPLETE BLOOD COUNT Routine 10/22/2024 8:17 AM EST Chronic obstructive pulmonary disease, unspecified (CMS/HCC) BASIC METABOLIC PANEL Routine 10/22/2024 8:17 AM EST Chronic obstructive pulmonary disease, unspecified ([facility]/HCC) documented in this encounter Results * (ABNORMAL) [...] Resul t [facility] [address] [place] [address], * (ABNORMAL) Complete blood count (10/22/2024 8:17 [...] Resul t [facility] [address] [place] [address], documented in this encounter Visit Diagnoses Diagnosis [...] documented as of this encounter Care Teams Access Developer Relationship Specialty Start Date End Date Kinjal Barron FNP [address] [place] [phone] PCP - General Family Medicine 03/06/25 documented as of this encounter
--- OUTSIDE RECORDS SUMMARY | 2025-11-17 11:22 | XMS_ITS | Encounter Summary ---
Author Organization [facility] Address [address] [place] [address] Care Team Providers Care Air Route Traffic Controller Name Role Phone Kinjal Barron VOUCHER EXAMINER Primary Care Provid er Encounter Details Date Type Department Care Team (Late st Contact Info) Description 10/22/2025 Lab Requisition [facility] - Main Lab [address] [place] [address] Janice Núñez MD [address] [place], [place] [id number] Malignant neoplasm of unspecified part of left [...] Description 02/18/2026 10:30 AM EDT Office Visit [facility] Hematology Oncology [address] [place] [phone] Lashanda Mcgill, [address] [place] [address] documented as of this encounter Procedures Procedure [...] 133 - 145 mmol/L 10/23/2025 10:41 AM [facility] Potassium 3.7 3.5 - 5.5 mmol/L 10/23/2025 10:41 AM [facility] Chloride 92(L) 96 - 110 mmol/L 10/23/2025 10:41 AM [facility] CO2 >40(HH) 21 - 32 mmol/L 10/23/2025 10:41 AM [facility] Anion Gap <10 3 - 11 10/23/2025 10:41 AM [facility] Glucose 89 70 - 100 mg/dL 10/23/2025 10:41 AM [facility] BUN 13 5 - 25 mg/dL 10/23/2025 10:41 AM [facility] Creatinine 0.89 0.50 - 1.10 mg/dL 10/23/2025 10:41 AM [facility] eGFR 69 >=60 mL/min/1. 73m2 10/23/2025 10:41 AM [facility] Comment:Calculation based on the Chronic Kidney Disease Epidemiology Collaboration (CKD-EPI) equation refit without adjustment for race. BUN/Creatinine Ratio 14.6 10/23/2025 10:41 AM [facility] Calcium 7.7(L) 8.5 - 10.5 mg/dL 10/23/2025 10:41 AM [facility] Blood Venous blood specimen / Unknown Venipuncture / Unknown 10/23/2025 7:00 AM EST 10/23/2025 9:25 AM EST us Janice Núñez MD LAB BLOOD ORDERABLES Final Resul t [facility] [address] [place] [address], * (ABNORMAL) Complete blood count (10/23/2025 7:00 AM EST) WBC 6.2 4.8 - 10.8 K/mcL LAB HEMETOLOGY METHOD 10/23/2025 9:38 AM [facility] RBC 3.00(L) 3.80 - 4.80 M/[facility] LAB HEMETOLOGY METHOD 10/23/2025 9:38 AM [facility] Hemoglobin 8.2(L) 11.5 - 16.0 g/dL LAB HEMETOLOGY METHOD 10/23/2025 9:38 AM [facility] Hematocrit 29.5(L) 35.0 - 47.0 % LAB HEMETOLOGY METHOD 10/23/2025 9:38 AM [facility] MCV 97.4 79.0 - 98.0 FL LAB HEMETOLOGY METHOD 10/23/2025 9:38 AM [facility] MCH 27.1 27.0 - 32.0 pcg LAB HEMETOLOGY METHOD 10/23/2025 9:38 AM [facility] MCHC 27.8(L) 32.0 - 37.0 g/dL LAB HEMETOLOGY METHOD 10/23/2025 9:38 AM [facility] RDW 15.1(H) 11.0 - 15.0 % LAB HEMETOLOGY METHOD 10/23/2025 9:38 AM EST [facility] Platelets 384 130 - 400 K/mcL LAB HEMETOLOGY METHOD 10/23/2025 9:38 AM EST [facility] MPV 9.2 7.0 - 11.0 FL LAB HEMETOLOGY METHOD 10/23/2025 9:38 AM EST [facility] NRBC 0.0 <1.0 % LAB HEMETOLOGY METHOD 10/23/2025 9:38 AM EST [facility] NRBC Absolute 0.00 <0.10 K/mcL LAB HEMETOLOGY METHOD 10/23/2025 9:38 AM [facility] Blood Venous blood specimen / Unknown Venipuncture / Unknown 10/23/2025 7:00 AM EST 10/23/2025 9:25 AM EST us Janice Núñez MD LAB BLOOD ORDERABLES Final Resul t [facility] [address] [place] [address], documented in this encounter Visit Diagnoses Diagnosis Malignant neoplasm of unspecified part of left bronchus or lung (CMS/HCC V24, CMS/HCC V28) Chronic respiratory failure with hypercapnia ([facility]/HCC V24, CMS/HCC V28) documented in this encounter Additional Health Concerns Assessment Noted Time PHQ-9 Depression Total Score: 1 07/19/20 25 5:04 PM EDT documented as of this encounter Care Teams Air Route Traffic Controller Relationship Specialty Start Date End Date Kinjal Barron FNP [address] [place] [phone] PCP - General Family Medicine 03/06/25 documented as of this encounter
--- OUTSIDE RECORDS SUMMARY | 2025-11-17 11:22 | XMS_ITS | Encounter Summary ---
Author Organization [facility] Address [address] [place] [address] Care Team Providers Care Paperhanger Pipe Name Role Phone Kinjal Barron SHEET HANGER Primary Care Provid er Encounter Details Date Type Department Care Team (Late st Contact Info) Description 10/15/2024 Lab Requisition [facility] - Main Lab [address] [place] [address] Alley San NP [address] [facility] [place] [address] Chronic obstructive pulmonary disease, unspecified (CMS/HCC V24, [...] 02/18/2026 10:30 AM EDT Office Visit [facility] Hematology Oncology [address] [place] [address] Lashanda Mcgill, DO [address] [place] [address] documented as of this encounter Procedures Procedure Name Priority Date/Time Associated Diagnosis Comments COMPLETE BLOOD COUNT Routine 10/15/2024 8:35 AM EST Chronic obstructive pulmonary disease, unspecified (CMS/HCC) BASIC METABOLIC PANEL Routine 10/15/2024 8:35 AM EST Chronic obstructive pulmonary disease, unspecified ([facility]/HCC) documented in this encounter Results * [...] Re sult [facility] [address] [place] [address], * (ABNORMAL) Complete blood count (10/15/2024 8:35 AM EST) WBC 8.3 4.8 - 10.8 K/mcL LAB HEMETOLOGY METHOD 10/15/2024 12:51 PM [facility] RBC 3.80 3.80 - 4.80 [...] METHOD 10/15/2024 12:51 PM [facility] Blood Venous blood specimen / Unknown Venipuncture / Unknown 10/15/2024 8:35 AM EST 10/15/2024 11:13 AM EST Alley San REGIONAL PSYCHIATRIC DIRECTOR LAB BLOOD ORDERABLES Final Re sult [facility] [address] [place] [address], documented in this encounter Visit Diagnoses Diagnosis [...] documented as of this encounter Care Teams Paperhanger Pipe Relationship Specialty Start Date End Date Kinjal Barron FNP [address] [place] [phone] PCP - General Family Medicine 03/06/25 documented as of this encounter
--- OUTSIDE RECORDS SUMMARY | 2025-11-17 11:22 | XMS_ITS | Encounter Summary ---
Author Organization [facility] Address [address] [place] [address] Care Team Providers Care President Commercial Bank Name Role Phone Kinjal Barron MACHINE PRESERVATIVE FILLER Primary Care Provid er Encounter Details Date Type Department Care Team (Late st Contact Info) Description 10/01/2025 Lab Requisition [facility] - Main Lab [address] [place] [address] Janice Núñez MD [address] [place], [place] [phone] Malignant neoplasm of unspecified part of left [...] Visit [facility] Hematology Oncology [address] [place] [phone] Lashanda Mcgill, [address] [place] [address] documented as of this encounter Procedures Procedure [...] mmol/L LAB CHEMISTRY METHOD 10/02/2025 10:46 AM [facility] Potassium 3.7 3.5 - 5.5 mmol/L LAB CHEMISTRY METHOD 10/02/2025 10:46 AM [facility] Chloride 92(L) 96 - 110 mmol/L LAB CHEMISTRY METHOD 10/02/2025 10:46 AM [facility] CO2 42(HH) 21 - 32 mmol/L LAB CHEMISTRY METHOD 10/02/2025 10:46 AM [facility] Anion Gap 4 3 - 11 LAB CHEMISTRY METHOD 10/02/2025 10:46 AM [facility] Glucose 95 70 - 100 mg/dL LAB CHEMISTRY METHOD 10/02/2025 10:46 AM [facility] BUN 16 5 - 25 mg/dL LAB CHEMISTRY METHOD 10/02/2025 10:46 AM [facility] Creatinine 1.12(H) 0.50 - 1.10 mg/dL LAB CHEMISTRY METHOD 10/02/2025 10:46 AM [facility] eGFR 53(L) >=60 mL/min/1. 73m2 LAB CHEMISTRY METHOD 10/02/2025 10:46 AM [facility] Comment:Calculation based on the Chronic Kidney Disease Epidemiology Collaboration (CKD-EPI) equation refit without adjustment for race. BUN/Creatinine Ratio 14.3 LAB CHEMISTRY METHOD 10/02/2025 10:46 AM [facility] Calcium 9.2 8.5 - 10.5 mg/dL LAB CHEMISTRY METHOD 10/02/2025 10:46 AM [facility] Blood Venous blood specimen / Unknown Venipuncture / Unknown 10/02/2025 7:32 AM EST 10/02/2025 8:51 AM EST us Janice Núñez MD LAB BLOOD ORDERABLES Final Resul t [facility] [address] [place] [address], [place] [phone] * (ABNORMAL) Complete blood count (10/02/2025 7:32 AM EST) WBC 7.3 4.8 - 10.8 K/mcL LAB HEMETOLOGY METHOD 10/02/2025 9:43 AM [facility] RBC 3.50(L) 3.80 - 4.80 M/[facility] LAB HEMETOLOGY METHOD 10/02/2025 9:43 AM [facility] Hemoglobin 9.9(L) 11.5 - 16.0 g/dL LAB HEMETOLOGY METHOD 10/02/2025 9:43 AM [facility] Hematocrit 34.1(L) 35.0 - 47.0 % LAB HEMETOLOGY METHOD 10/02/2025 9:43 AM [facility] MCV 98.8(H) 79.0 - 98.0 FL LAB HEMETOLOGY METHOD 10/02/2025 9:43 AM [facility] MCH 28.7 27.0 - 32.0 pcg LAB HEMETOLOGY METHOD 10/02/2025 9:43 AM [facility] MCHC 29.0(L) 32.0 - 37.0 g/dL LAB HEMETOLOGY METHOD 10/02/2025 9:43 AM EST [facility] RDW 16.7(H) 11.0 - 15.0 % LAB HEMETOLOGY METHOD 10/02/2025 9:43 AM [facility] Platelets 443(H) 130 - 400 K/mcL LAB HEMETOLOGY METHOD 10/02/2025 9:43 AM EST [facility] MPV 9.3 7.0 - 11.0 FL LAB HEMETOLOGY METHOD 10/02/2025 9:43 AM EST [facility] NRBC 0.0 <1.0 % LAB HEMETOLOGY METHOD 10/02/2025 9:43 AM [facility] NRBC Absolute 0.00 <0.10 K/mcL LAB HEMETOLOGY METHOD 10/02/2025 9:43 AM [facility] Blood Venous blood specimen / Unknown Venipuncture / Unknown 10/02/2025 7:32 AM EST 10/02/2025 8:51 AM EST us Janice Núñez MD LAB BLOOD ORDERABLES Final Resul t [facility] [address] [place] [address], documented in this encounter Visit Diagnoses Diagnosis Malignant neoplasm of unspecified part of left bronchus or lung (CMS/HCC V24, CMS/HCC V28) Chronic respiratory failure with hypercapnia (CMS/HCC V24, CMS/HCC V28) documented in this encounter Additional Health Concerns Assessment Noted Time PHQ-9 Depression Total Score: 1 07/19/20 25 5:04 PM EDT documented as of this encounter Care Teams President Commercial Bank Relationship Specialty Start Date End Date Kinjal Barron FNP [address] [place] [phone] PCP - General Family Medicine 03/06/25 documented as of this encounter
--- OUTSIDE RECORDS SUMMARY | 2025-11-17 11:22 | XMS_ITS | Encounter Summary ---
Author Organization [facility] Address [address] [place] [address] Care Team Providers Care Rate Supervisor Name Role Phone Kinjal Barron SHELTER CASE MANAGER Primary Care Provid er Encounter Details Date Type Department Care Team (Late st Contact Info) Description 10/21/2025 Lab Requisition [facility] - Main Lab [address] [place] [address] Janice Núñez MD [address] [place], [place] [phone] Anemia, unspecified; Essential (primary) hypertension; Malignant neoplasm [...] [facility] Hematology Oncology [address] [place] [phone] Lashanda Mcgill DO [address] [place] [address] documented as of this encounter Procedures Procedure [...] 18.8 >=5.4 ng/ml 10/21/2025 11:30 AM EST [facility] Blood Venous blood specimen / Unknown Venipuncture / Unknown 10/21/2025 8:45 AM EST 10/21/2025 10:33 AM EST [facility] - 10/21/2025 11:30 AM EST Over the counter supplements containing high doses of biotin may interfere with this assay. If interference is suspected, patients shoud be retested after refraining from biotin supplements for 72 hours. us Janice Núñez MD LAB BLOOD ORDERABLES Final Resul t Performing Organization Address City/[facility]/ZIP Co de Phone Number [facility] [address] [place] [address], [place] [phone] * Vitamin B12 (10/21/2025 8:45 AM EST) [facility] Vitamin B-12 631 211 - 911 pcg/mL 10/21/2025 11:30 AM EST [facility] Blood Venous blood specimen / Unknown Venipuncture / Unknown 10/21/2025 8:45 AM EST 10/21/2025 10:33 AM EST us Janice Núñez MD LAB BLOOD ORDERABLES Final Resul t Performing Organization Address [facility] Co de Phone Number [facility] [address] [place] [address], [place] [phone] * Ferritin (10/21/2025 8:45 AM EST) [facility] Ferritin 11 7 - 271 ng/mL 10/21/2025 11:30 AM EST [facility] Blood Venous blood specimen / Unknown Venipuncture / Unknown 10/21/2025 8:45 AM EST 10/21/2025 10:33 AM EST us Janice Núñez MD LAB BLOOD ORDERABLES Final Resul t Performing Organization Address [facility]/ZIP Co de Phone Number [facility] [address] [place] [address], [place] [phone] * (ABNORMAL) Iron and TIBC (10/21/2025 8:45 AM EST) [facility] Iron 10(L) 40 - 150 mcg/dL 10/21/2025 11:32 AM EST [facility] TIBC 392 250 - 450 mcg/dL 10/21/2025 11:32 AM [facility] Iron Saturation 3(L) 15 - 50 % 11:32 AM [facility] Blood Venous blood specimen / Unknown Venipuncture / Unknown 10/21/2025 8:45 AM EST 10/21/2025 10:33 AM EST us Janice Núñez MD LAB BLOOD ORDERABLES Final Resul t [facility] [address] [place] [address], * (ABNORMAL) Basic metabolic panel (10/21/2025 8:45 AM EST) Sodium 137 133 - 145 mmol/L 10/21/2025 11:34 AM [facility] Potassium 3.8 3.5 - 5.5 mmol/L 10/21/2025 11:34 AM [facility] Chloride 90(L) 96 - 110 mmol/L 10/21/2025 11:34 AM [facility] CO2 >40(HH) 21 - 32 mmol/L 10/21/2025 11:34 AM [facility] Anion Gap <7 3 - 11 10/21/2025 11:34 AM [facility] Glucose 120(H) 70 - 100 mg/dL 10/21/2025 11:34 AM [facility] BUN 11 5 - 25 mg/dL 10/21/2025 11:34 AM [facility] Creatinine 0.84 0.50 - 1.10 mg/dL 10/21/2025 11:34 AM [facility] eGFR 74 >=60 mL/min/1. 73m2 10/21/2025 11:34 AM [facility] Comment:Calculation based on the Chronic Kidney Disease Epidemiology Collaboration (CKD-EPI) equation refit without adjustment for race. BUN/Creatinine Ratio 13.1 10/21/2025 11:34 AM [facility] Calcium 8.3(L) 8.5 - 10.5 mg/dL 10/21/2025 11:34 AM [facility] Blood Venous blood specimen / Unknown Venipuncture / Unknown 10/21/2025 8:45 AM EST 10/21/2025 10:33 AM EST us Janice Núñez MD LAB BLOOD ORDERABLES Final Resul t [facility] [address] [place] [address], [place] [phone] * (ABNORMAL) Complete blood count (10/21/2025 8:45 AM EST) WBC 7.8 4.8 - 10.8 K/mcL LAB HEMETOLOGY METHOD 10/21/2025 10:58 AM [facility] RBC 3.10(L) 3.80 - 4.80 M/mcL LAB HEMETOLOGY METHOD 10/21/2025 10:58 AM [facility] Hemoglobin 9.4(L) 11.5 - 16.0 g/dL LAB HEMETOLOGY METHOD 10/21/2025 10:58 AM [facility] Hematocrit 30.0(L) 35.0 - 47.0 % LAB HEMETOLOGY METHOD 10/21/2025 10:58 AM [facility] MCV 97.4 79.0 - 98.0 FL LAB HEMETOLOGY METHOD 10/21/2025 10:58 AM [facility] MCH 30.5 27.0 - 32.0 pcg LAB HEMETOLOGY METHOD 10/21/2025 10:58 AM [facility] MCHC 31.3(L) 32.0 - 37.0 g/dL LAB HEMETOLOGY METHOD 10/21/2025 10:58 AM EST [facility] RDW 15.1(H) 11.0 - 15.0 % LAB HEMETOLOGY METHOD 10/21/2025 10:58 AM [facility] Platelets 446(H) 130 - 400 K/mcL LAB HEMETOLOGY METHOD 10/21/2025 10:58 AM EST [facility] MPV 9.4 7.0 - 11.0 FL LAB HEMETOLOGY METHOD 10/21/2025 10:58 AM EST [facility] NRBC 0.0 <1.0 % LAB HEMETOLOGY METHOD 10/21/2025 10:58 AM [facility] NRBC Absolute 0.00 <0.10 K/mcL LAB HEMETOLOGY METHOD 10/21/2025 10:58 AM [facility] Blood Venous blood specimen / Unknown Venipuncture / Unknown 10/21/2025 8:45 AM EST 10/21/2025 10:33 AM EST Janice Núñez MD LAB BLOOD ORDERABLES Final Resul t [facility] [address] [place] [address], documented in this encounter Visit Diagnoses Diagnosis Anemia, unspecified Essential (primary) hypertension Unspecified essential hypertension Malignant neoplasm of unspecified part of unspecified bronchus or lung (CMS/HCC V24, CMS/HCC V28) documented in this encounter Additional Health Concerns Assessment Noted Time PHQ-9 Depression Total Score: 1 07/19/20 25 5:04 PM EDT documented as of this encounter Care Teams Rate Supervisor Relationship Specialty Start Date End Date Kinjal Barron FNP [address] [place] [phone] PCP - General Family Medicine 03/06/25 documented as of this encounter
--- OUTSIDE RECORDS SUMMARY | 2025-11-17 11:22 | XMS_ITS | Clinical Summary ---
Author Organization [facility] Prior to 04/27/[address] [place] [address] Care Team Providers Care Ethics Manager Name Role Phone Debra Ji MD Primary Care Provider [phone] Allergies Active Allergy Reactions Criticality Noted Date [...] 0 Active zoster vaccine live, PF, (ZOSTAVAX) 55290 UNT/0.65ML injection Inject 0.65 mL under the [...] age to complete this topic Care Teams Ethics Manager Relationship Specialty Start Date End Date Debra Ji MD PCP - General Internal Medicine 06/27/17
--- OUTSIDE RECORDS SUMMARY | 2025-11-17 11:22 | XMS_ITS | Encounter Summary ---
Author Organization [facility] Address [address] [place] [address] Care Team Providers Care Radiology Practitioner Assistant Name Role Phone Kinjal Barron CATCHER FILTER TIP Primary Care Provid er Encounter Details Date Type Department Care Team (Late st Contact Info) Description 10/29/[address] [facility] - Main Lab [address] [place] [address] Janice Nñúez MD [address] [place], [place] [phone] Malignant neoplasm of unspecified part of left [...] [facility] Hematology Oncology [address] [place] [phone] Lashanda Mcgill, [address] [place] [address] documented as of this encounter Procedures Procedure [...] 133 - 145 mmol/L 10/30/2025 11:53 AM [facility] Potassium 3.6 3.5 - 5.5 mmol/L 10/30/2025 11:53 AM [facility] Chloride 92(L) 96 - 110 mmol/L 10/30/2025 11:53 AM [facility] CO2 >40(HH) 21 - 32 mmol/L 10/30/2025 11:53 AM [facility] Anion Gap <9 3 - 11 10/30/2025 11:53 AM [facility] Glucose 72 70 - 100 mg/dL 10/30/2025 11:53 AM [facility] BUN 19 5 - 25 mg/dL 10/30/2025 11:53 AM [facility] Creatinine 0.88 0.50 - 1.10 mg/dL 10/30/2025 11:53 AM [facility] eGFR 70 >=60 mL/min/1. 73m2 10/30/2025 11:53 AM [facility] Comment:Calculation based on the Chronic Kidney Disease Epidemiology Collaboration (CKD-EPI) equation refit without adjustment for race. BUN/Creatinine Ratio 21.6 10/30/2025 11:53 AM [facility] Calcium 8.9 8.5 - 10.5 mg/dL 10/30/2025 11:53 AM [facility] Blood Venous blood specimen / Unknown Venipuncture / Unknown 10/30/2025 7:18 AM EST 10/30/2025 10:32 AM EST us Janice Núñez MD LAB BLOOD ORDERABLES Final Resul t [facility] [address] [place] [address], * (ABNORMAL) Complete blood count (10/30/2025 7:18 AM EST) WBC 8.5 4.8 - 10.8 K/mcL LAB HEMETOLOGY METHOD 10/30/2025 10:54 AM [facility] RBC 3.00(L) 3.80 - 4.80 M/mcL LAB HEMETOLOGY METHOD 10/30/2025 10:54 AM [facility] Hemoglobin 7.9(L) 11.5 - 16.0 g/dL LAB HEMETOLOGY METHOD 10/30/2025 10:54 AM [facility] Hematocrit 27.5(L) 35.0 - 47.0 % LAB HEMETOLOGY METHOD 10/30/2025 10:54 AM [facility] MCV 92.9 79.0 - 98.0 FL LAB HEMETOLOGY METHOD 10/30/2025 10:54 AM [facility] MCH 26.7(L) 27.0 - 32.0 pcg LAB HEMETOLOGY METHOD 10/30/2025 10:54 AM [facility] MCHC 28.7(L) 32.0 - 37.0 g/dL LAB HEMETOLOGY METHOD 10/30/2025 10:54 AM [facility] RDW 15.6(H) 11.0 - 15.0 % LAB HEMETOLOGY METHOD 10/30/2025 10:54 AM EST [facility] Platelets 404(H) 130 - 400 K/mcL LAB HEMETOLOGY METHOD 10/30/2025 10:54 AM EST [facility] MPV 9.6 7.0 - 11.0 FL LAB HEMETOLOGY METHOD 10/30/2025 10:54 AM EST [facility] NRBC 0.0 <1.0 % LAB HEMETOLOGY METHOD 10/30/2025 10:54 AM EST [facility] NRBC Absolute 0.00 <0.10 K/mcL LAB HEMETOLOGY METHOD 10/30/2025 10:54 AM [facility] Blood Venous blood specimen / Unknown Venipuncture / Unknown 10/30/2025 7:18 AM EST 10/30/2025 10:32 AM EST us Janice Núñez MD LAB BLOOD ORDERABLES Final Resul t [facility] [address] [place] [address], documented in this encounter Visit Diagnoses Diagnosis Malignant neoplasm of unspecified part of left bronchus or lung (CMS/HCC V24, CMS/HCC V28) Chronic respiratory failure with hypercapnia (CMS/HCC V24, CMS/HCC V28) documented in this encounter Additional Health Concerns Assessment Noted Time PHQ-9 Depression Total Score: 1 07/19/20 25 5:04 PM EDT documented as of this encounter Care Teams Radiology Practitioner Assistant Relationship Specialty Start Date End Date Kinjal Barron FNP [address] [place] [phone] PCP - General Family Medicine 03/06/25 documented as of this encounter
--- OUTSIDE RECORDS SUMMARY | 2025-11-17 11:23 | XMS_ITS | Data Portability ---
Author Organization [facility] [employer] [facility], Main Office Address [address] [facility], [address] [place] [address] Care Team Providers Care Credentialer Name Role Phone [facility] OTHER Assessment Encounter Date Assessment Date Assessment LastModified by Organization Details LastModified Time 12/17/2024 12/17/2024 [facility] 12/13: Na 136-K 3.8-Bun 13-Cr 0.7-wbc 7.5-hgb 8.4-hct 28.5-plt 510 [email or web address] Not available 12/23/2024 14:46:10 12/25/2024 12/25/2024 [facility] 12/13: Na 136-K 3.8-Bun 13-Cr 0.7-wbc 7.5-hgb 8.4-hct 28.5-plt 510 [email or web address] Not available 12/26/2024 07:11:06 Plan of Treatment [...] Organization Details Recorded Time Depressi ve disorder 28862363 Active BLAS Rollins [address] [facility], [address], [place], [address] , [facility] [email or web address] 10:21:22 Acute exacerba tion of chronic obstruct sophie pulmonar y disease 229966508 Completed 12/20/2024 Not Available [facility] 5 09:41:59 Gastroes ophageal reflux disease 377391964 Completed 12/23/2024 BLAS GONZÁLES [address] [facility], [address], [place], [address] , [facility] 5 14:16:13 Bipolar disorder 66940611 Completed 12/20/2024 BLAS GONZÁLES [address] [facility], [address], [place], [address] , [facility] 5 14:04:18 Insomnia 665952228 Completed 12/20/2024 Not Available [facility] 5 09:42:54 Tachycar fiordaliza 2321302 Completed 12/23/2024 BLAS GONZÁLES [address] [facility], [address], [place], [address] , [facility] 5 13:43:54 Obesity 512853703 Completed 202012/20/2024 Not Available [facility] 09:42:44 Dyspnea 546297827 Completed 202012/20/2024 Not Available [facility] 5 09:42:45 Acute on chronic hypercap juan respirat ory failure 01725548565 06 Completed 202012/20/2024 Not Available [facility] 5 09:42:46 Late effect of accident al fall 465891398 Completed 202012/20/2024 Not Available [facility] 5 09:42:47 Unsteady when standing 526728343 Completed 202012/20/2024 Not Available [facility] 5 09:42:48 Syncope and collapse 330891068 Completed 202012/20/2024 Not Available [facility] 5 09:42:50 Acute exacerba tion of chronic obstruct sophie pulmonar y disease 480146901 Completed 202012/20/2024 Not Available [facility] 5 09:42:51 Muscle weakness 19864288 Completed 202012/20/2024 Not Available [facility] 5 09:42:53 Difficul ty walking 880889709 Completed 202012/20/2024 Not Available [facility] 5 09:42:55 Inflamma tory dermatos is 117821085 Completed 202012/20/2024 eczema Not Available [facility] 5 09:42:55 Bronchit is 66674119 Completed 202012/20/2024 Not Available [facility] 5 09:42:56 Acute exacerba tion of chronic obstruct sophie pulmonar y disease 984775838 Completed 202112/20/2024 Not Available [facility] 09:42:03 Muscle weakness 25050178 Completed 202112/20/2024 Not Available [facility] 5 09:42:06 Intersti tial lung disease 742416900 Completed 202112/20/2024 Not Available [facility] 09:42:11 Metaboli c encephal opathy 33603319 Completed 202112/20/2024 Not Available [facility] 09:42:14 Dyspnea 259122093 Completed 202112/20/2024 Not Available [facility] 09:42:14 Abnormal posture 88476834 Completed 202112/20/2024 Not Available [facility] 09:42:41 Abnormal posture 28478252 Completed 202112/20/2024 Not Available [facility] 09:42:42 Constipa tion 24320051 Completed 202112/20/2024 Not Available [facility] 09:42:40 Orophary ngeal dysphagi a 77455356 Completed 202112/20/2024 Not Available [facility] 09:42:13 Difficul ty walking 152892646 Completed 202212/20/2024 Not Available [facility] 09:42:08 Fall Completed 202212/20/2024 Not Available [facility] 09:42:12 Senile cataract 49879765 Completed 202212/23/2024 BLAS GONZÁLES [address] , [address], [place], [address] , [facility] 5 13:43:54 Chronic obstruct sophie pulmonar y disease 33798430 Completed 202212/20/2024 BLAS GONZÁLES [address] , [address], [place], [address] , [facility] 5 13:32:43 Disorder of body system 602342874 Completed 202212/20/2024 Not Available [facility] 09:42:39 Chronic obstruct sophie pulmonar y disease 06080671 Active 2022 BLAS GONZÁLES [address] , [address], [place], [address] , [facility] 5 13:32:43 Chronic hypoxemi c respirat ory failure 061076405 Completed 202212/20/2024 Not Available [facility] 09:42:36 Gastroes ophageal reflux disease without esophagi tis 135363701 Completed 202212/23/[address] BLAS GONZÁLES [address], [address], [place], [address] , [facility] 5 13:43:54 Pain in left foot 16180512998 9107 Completed 202212/20/2024 Not Available [facility] 09:42:34 Essentia l hyperten lisa 56984783 Completed 202212/23/2024 BLAS GONZÁLES [address] [facility], [address], [place], [address] , [facility] 13:43:54 Osteopor osis 76754076 Completed 202212/20/2024 Not Available [facility] 09:42:52 Localize d, primary osteoart hritis of the ankle and/or foot 744444244 Completed 202212/20/2024 Not Available [facility] 09:42:33 Pleuriti c pain 7242722 Completed 202212/20/2024 Not Available [facility] 09:42:32 Fracture of multiple ribs 7488768 Completed 202312/20/2024 Not Available [facility] 09:42:01 Fall Completed 202312/20/2024 Not Available [facility] 5 09:42:29 Acute on chronic hypoxemi c respirat ory failure 07790707375 425621 Completed 202312/20/2024 Not Available [facility] 09:42:29 Syncope and collapse 551809052 Completed 202312/20/2024 Not Available [facility] 09:42:30 Difficul ty walking 755283482 Completed 202312/20/2024 Not Available [facility] 09:42:31 Acute exacerba tion of chronic obstruct sophie pulmonar y disease 417762826 Completed 202312/20/2024 Not Available [facility] 09:42:00 Acute on chronic hypercap juan respirat ory failure 66687613911 06 Completed 202312/20/2024 Not Available [facility] 09:42:03 Acute on chronic hypoxemi c respirat ory failure 73679484586 881592 Completed 202312/20/2024 Not Available [facility] 09:42:06 Acute pulmonar y edema 49088537 Completed 202312/20/2024 Not Available [facility] 09:42:08 Congesti ve heart failure 13498032 Completed 202312/20/2024 Not Available [facility] 09:42:10 Anxiety disorder 923098747 Active 2023 Not Available [facility] 09:42:22 Inflamma tory dermatos is 166726354 Completed 202312/20/2024 eczema Not Available [facility] 09:42:23 Unsteady when standing 940193593 Completed 202312/20/2024 Not Available [facility] 09:42:24 Muscle weakness 37460898 Completed 202312/20/2024 Not Available [facility] 09:42:25 Dyspnea 469740829 Completed 202312/20/2024 Not Available [facility] 09:42:25 Difficul ty walking 637894397 Completed 202312/20/2024 Not Available [facility] 09:42:26 Somatic syndrome absent 256318416 Completed 202312/23/2024 BLAS GONZÁLES [address] [facility], [address], [place], [address] , [facility] 5 13:43:54 Pulmonar y emphysem a 51940540 Completed 202312/23/2024 JOLEEN BISHOP, BLAS [address] [facility], [address], [place], [address] , [facility] - [email or web address] 5 13:43:54 Need for personal care assistan ce 63658216131 604408 Completed 202312/20/2024 Not Available [facility] 09:42:11 Acidosis 77771701 Completed 202312/20/2024 Not Available [facility] 09:42:02 Congesti ve heart failure 11318337 Completed 202312/20/2024 Not Available [facility] 5 09:42:04 Chronic hypercap juan respirat ory failure 627302019 Completed 202312/20/2024 Not Available [facility] 09:42:43 Pneumoni a 937949195 Completed 202312/20/2024 Not Available [facility] 09:42:09 Muscle weakness 74565732 Completed 202312/20/2024 Not Available [facility] 5 09:42:16 Difficul ty walking 851446727 Completed 202312/20/2024 Not Available [facility] 5 09:42:17 Chronic cor pulmonal e 49970196 Completed 202312/20/2024 Not Available [facility] 09:42:17 Atopic dermatit is 15551144 Completed 202312/20/2024 Not Available [facility] 09:42:18 Acute exacerba tion of chronic obstruct sophie pulmonar y disease 657961612 Completed 202312/20/2024 Not Available [facility] 09:42:19 Congesti ve heart failure 49883449 Active 2023 Not Available [facility] 09:42:19 Paroxysm al atrial fibrilla tion 246115813 Active 2023 Not Available [facility] 09:42:20 Major depressi on, single episode 90901295 Completed 202312/20/2024 Not Available [facility] 09:42:45 Post-tra umatic stress disorder 03911945 Active 2023 Not Available [facility] 09:42:20 Dependen ce on enabling machine or device 675177031 Completed 202312/23/2024 IVAP BLAS GONZÁLES [address] [facility], [address], [place], [address] , [facility] 5 13:43:54 Dependen ce on suppleme ntal oxygen 94416466653 7 Completed 202312/20/2024 Not Available [facility] 09:42:37 Chronic obstruct sophie pulmonar y disease 76368657 Completed 202312/20/2024 Not Available [facility] 10:29:12 Acute on chronic hypoxemi c respirat ory failure 33626768281 050704 Completed 202412/20/2024 Not Available [facility] 5 09:41:58 Anemia 882204457 Active 2024 Not Available [facility] 5 09:42:15 Epilepsy 50255011 Completed 202412/23/2024 BLAS GONZÁLES [address] [facility], [address], [place], [address] , [facility] 5 13:43:54 Seizure 87583007 Active 2024 BLAS GONZÁLES [address] [facility], [address], [place], [address] , [facility] 5 13:33:33 Lung mass 532988807 Active 2024 JOLEEN BISHOP [employer], [address], [place], [address] , [facility] 5 14:00:34 Bipolar disorder 32465381 Active 2024 AIDA GONZÁLES[address], [address], [place], [address] , [facility] 5 14:04:18 Gastroes ophageal reflux disease 592298925 Active 2024 AIDA GONZÁLES[address], [address], [place], [address] , [facility] 5 14:16:13 Problem Notes None recorded. Medical Equipment None Reported. Allergies Allergen ID Allergen Name Allergen Category Reaction Reaction Severity Criticality Documentation Date Start Date Code Code System Note Provider Name and Address Organization Details Recorded Time 161 Haldol medicatio n Not available Not available Not available 09/01/2015 76370 9 RxNorm Mellisa Georges [address], [address], [place], [address], [facility] 5 10:07:26 162 codeine medicatio n Not available Not available Not available 09/01/20152021 2670 RxNorm Restl ess/R jai Not Available [facility] 09:42:59 163 Substance with sulfonami de structure and antibacte rial mechanism of action (substanc e) medicatio n Not available Not available Not available 09/01/2015 43103 8003 SNOMED Mellisa Georges [address], [address], [place], [address], [facility] 5 10:07:26 49399 haloperid ol medicatio n Not available Not available Not available 12/20/20242021 5093 RxNorm Palpa tions Not Available [facility] 09:42:59 34771 fluoxetin e medicatio n Not available Not [...] 97 % 103/52 mm[Hg] BLAS GONZÁLES [address] [facility], [address], [place], [address], [place] - [email or web address] 5 14:47:16 Social History Question Answer Notes LastModified by Organizat ion Details LastModified Time Tobacco Smoking Status Current Every Day Smoker Not Available [employer] 09/23/2020 03:13:02 How Many Years Have You Smoked Tobacco? 50 [id number] Information not available 09/23/2020 Sex: Unknown Functional [...] Diagnosis Note 363 BLAS Rollins [facility] on [address] [place] [address] 09/01/2015 10:08:10 11/04/2015 03:49:10 Acute exacerbation of chronic obstructive pulmonary disease 607442574 J44.1 pt will continue her nebs treatments , Spiriva, prednisone taper, theodur, advair. continue on bipap, start PT/OT Gastroesop hageal reflux disease 947333028 K21.9 continue prilosec Bipolar disorder 3253185 4 F31.9 as pt requested we will increase abilify to 15 mg qd from 10 mg, continue lamictal as ordered which is not a change from [facility]. she can also see [facility] for this diagnosis. Insomnia 388202688 G47.0 0 pt has been on trazodone in the past, not now, will try remeron Tachycardia 7240327 R00. 0 pt was started on atenolol for elevated heart rate. is normal rate now. continue to monitor. 450 Mohsen Dos Santos MD Main Office [address] [facility], [address] [place] [address] 09/02/2015 17:39:53 10/09/2015 03:48:09 Acute exacerbation of chronic obstructive pulmonary disease 183453942 J44.1 acute on chronic, improving. Unclear why on all her inhalers while she is on oral prednisone and DuoNeb. We will hold all her inhalers until she has stopped her DuoNeb updrafts and her steroids have been tapered off. Tachycardia 8175841 R00. 0 responding to atenolol. Patient feels much improved Bipolar disorder 4531647 4 F31.9 no change her current medication s Chronic ob structive pulmonary disease 23329068 J44.9 chronic history, resume baseline meds once stable [id number] JOLEEN BISHOP, BLAS [place] [address] [place] [address] 12/17/2024 13:30:48 12/25/2024 16:13:18 Chronic obstructive pulmonary disease 58900961 J44.9 sob not r/t exacerbati onbaseline on supplement al O2 at 3 literscont on albuterol, breo neb tx, prednisone ,per discharge summary voriconazo le was mention in med list, unable to verify if she was started on this by pulmonolog y.f/u with pulmonolog ymonitor resp status.RT eval and tx prncont biPAP at hs Congestive heart failure 17387899 I50.9 cont on Lasix 40mg , kcl 10 megcont on metoprolol monitor weight, resp, edema Paroxysmal atrial fibrillation 045088778 I48.0 cont on eliquis , metoprolol monitor for unexplaine d bruising bleeding Seizure 00423368 R56.9 continue Lamictal 200 mg qd and 300 mg at nightmonit or for activityfo llow labs Anemia 512199754 D64.9 symptomati chgb 8.4GI consulted - recommende d to f/u with GI outpatient started on ferrous sulfate dailycont vit b, vit Dfollow labs Lung mass 101118142 R91. 8 11/02/24 ct scan showed small area of consolidat sophie hypodensit y in the left upper lobe slightly increased compared to 11/24/2023 .need to f/u to r/o malignancy . Depressive disorder 1778 9007 F32.A cont on Vilazodone 40 mgcontinue on mirtazapin ehx of suicidal ideat b ion, monitor moods and behavioral changes Bipolar disorder 0932975 4 F31.9 cont on abilify, theophylli ne Gastroesop hageal reflux disease 084762368 K21.9 cont on protonixmo nitor for GI upsetsx if bleeding Osteoporosis 44191732 M8 1.0 cont. on alendronat e, vit D, omega 3 , calcium Allergic rhinitis 120837 04 J30.9 cont fluticason e and mucinex Constipation 76537364 K5 9.00 cont on miralax, senna, lactulose Asthenia 73827177 R53.1 02 dependent, dyspnea with exertionPT /OT eval and treat [id number] FARHAD DAILEY NP-C [facility] [address] [address] 12/25/2024 12:54:10 12/27/2024 14:09:06 Anemia 020842533 D64.9 symptomati chgb 8.4GI consulted - recommende d to f/u with GI outpatient started on ferrous sulfate dailycont vit b, vit Dfollow labs outptf/up with pcp Chronic ob structive pulmonary disease 92051348 J44.9 sob not r/t exacerbati onbaseline on supplement al O2 at 3 literscont on albuterol, breo neb tx, prednisone ,per discharge summary voricontashi mesa was mention in med list, unable to verify if she was started on this by pulmonolog y.f/u with pulmonolog ycont biPAP at hs Congestive heart failure 66102839 I50.9 cont on Lasix 40mg , kcl 10 megcont on metoprolol monitor weight, resp, edema at homef/up with pcp Paroxysmal atrial fibrillation 730791893 I48.0 cont on eliquis , metoprolol monitor bleeding at homef/up with pcp Seizure 40333421 R56.9 continue Lamictal 200 mg qd and 300 mg at nightmonit or for activity at homef/up with pcp Lung mass 490312351 R91. 8 11/02/24 ct scan showed small area of consolidat sophie hypodensit y in the left upper lobe slightly increased compared to 11/24/2023 .need to f/u to r/o malignancy outptf/up with pcp Depressive disorder 3548 9007 F32.A cont on Vilazodone 40 mgcontinue on mirtazapin ef/up with pcp Bipolar disorder 7237998 4 F31.9 cont on abilify, theophylli mars/up with pcp Gastroesop hageal reflux disease 933225146 K21.9 cont on protonixmo nitor for GI upset outptf/up with pcp Osteoporosis 43841133 M8 1.0 cont. on alendronat e, vit D, omega 3 , calciumf/u p with pcp Allergic rhinitis 016687 04 J30.9 cont fluticason e and mucinexf/u p with pcp Constipation 62773342 K5 9.00 cont on miralax, senna, lactulosef /up with pcp Asthenia 45488102 R53.1 02 dependent, dyspnea with exertionco mpleted PT/OT eval and treatf/up with pcp Health Concerns Section Related Observation LastModified by Organization Detai ls LastModified Time None Recorded Concern Status LastModified by Organization Details LastModified Time None Recorded Advance Directives Directive None Recorded Payers Insurance Date Sequence Insurance Name Policy Number Policy Garcia Covered Member ID Garcia Member ID Guarantor Name 11/14/2024 1 [place] [facility] Lluvia Cartagena [id number] Lluvia Cartagena 12/17/2024 2 [place] [facility] Lluvia Cartagena [id number] Lluvia Cartagena 12/25/2024 1 [place] B[place] [facility] [email or web address] Lluvia Cartagena [id number] Lluvia Cartagena Notes Date Note Type Note Provider Name and Address Organization Details Recorded Time 09/01/2015 text/html HPI patient admitted to [facility] for COPD exacerbation, acute on chronic resp failure, started on Bipap and atenolol for tachycardia AIDA RollinsP [address] [facility], [address], [place], [address], [facility] [email or web address] 09/01/2015 10:36:55 09/02/2015 text/html HPI 60-year-old female admitted for respiratory infection with negative chest x-ray, acute exacerbation of COPD, but he by hypoxemia and hypercapnia. She required ICU stay for administration of BiPAP. Chest x-ray did not show acute infiltrate. She was treated however with steroids, updraft and antibiotics. History of bipolar disorder as well is active smoker Mohsen Dos Santos MD [address] [facility], [address], [place], [address], [facility] 09/02/2015 17:45:59 12/17/2024 text/html ROS as noted in the HPI This is a 69-year-old female patient seen for Transition of care and re-admission. PMH of chronic hypoxic respiratory failure secondary to COPD, chronic CO2 retention, Afib, anxiety/depression, PTSD,obesity, osteoporosis, lung mass,PNA. She [place] [facility] of worsening shortness of breath; medical workup appeared to be at her baseline with the exception of anemia, baseline she usually around 10, labs showed hgb 8.4. GI was consulted and due to no concerns for a GI bleed, patient is recommended to follow up outpatient for EGD/colonoscopy. Per nursing she has been at her baseline since returning [place], there are no acute concerns. BLAS GONZÁLES [address] [place] [address], [address], [place], [address], [facility] 12/23/2024 16:38:36 12/25/2024 text/html ROS as noted in the HPI This is a 69-year-old female patient seen for discharge summary. PMH of chronic hypoxic respiratory failure secondary to COPD, chronic CO2 retention, Afib, anxiety/depression, PTSD, obesity, osteoporosis, lung mass,PNA. She was [place] [facility] [place] of worsening shortness of [...] plan on finding her a pcp in [place] where they live. Patient is stable for sd home with meds and services. GÉNESIS FERNÁNDEZ [address] [facility], [address], [place], [address], [facility] 12/26/2024 07:14:05 OBGyn Episode No OBEpisode recorded.
--- OUTSIDE RECORDS SUMMARY | 2025-11-17 11:23 | XMS_ITS | Encounter Summary ---
Author Organization [facility] Address [address] [place] [address] Care Team Providers Care Development Geologist Name Role Phone Kinjal Barron SOFTWARE INTEGRATION DEVELOPER Primary Care Provid er Encounter Details Date Type Department Care Team (Late st Contact Info) Description 08/20/2025 Lab Requisition [facility] - Main Lab [address] [place] [address] Janice Núñez MD [address] [place], [place] [id number] Malignant neoplasm of unspecified part of left bronchus or lung (CMS/HCC V24, CMS/HCC V28); Respiratory failure, unspecified, unspecified whether with hypoxia or hypercapnia (CMS/HCC V24, CMS/HCC V28); Other senior care (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 therapy Social History Tobacco Use [...] [facility] [address] [place] [phone] Lashanda Mcgill, [address] [place] [address] documented as of this encounter Procedures Procedure Name Priority Date/Time Associated Diagnosis Comments VITAMIN D 25 HYDROXY Routine 08/20/2025 4:50 AM EDT Malignant neoplasm of unspecified part of left bronchus or lung (CMS/HCC V24, CMS/HCC V28) Respiratory failure, unspecified, unspecified whether with hypoxia or hypercapnia (CMS/HCC V24, CMS/HCC V28) Other technician terminal and repeater (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 therapy COMPLETE BLOOD COUNT Routine 08/20/2025 4:50 AM EDT Malignant neoplasm of unspecified part of left bronchus or lung (CMS/HCC V24, CMS/HCC V28) Respiratory failure, unspecified, unspecified whether with hypoxia or hypercapnia (CMS/HCC V24, CMS/HCC V28) Other technician terminal and repeater (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 therapy THYROID STIMULATING HORMONE Routine 08/20/2025 4:50 AM EDT Malignant neoplasm of unspecified part of left bronchus or lung (CMS/HCC V24, CMS/HCC V28) Respiratory failure, unspecified, unspecified whether with hypoxia or hypercapnia (CMS/HCC V24, CMS/HCC V28) Other senior care (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 therapy HEMOGLOBIN A1C Routine 08/20/2025 4:50 AM EDT Malignant neoplasm of unspecified part of left bronchus or lung (CMS/HCC V24, CMS/HCC V28) Respiratory failure, unspecified, unspecified whether with hypoxia or hypercapnia (CMS/HCC V24, CMS/HCC V28) Other technician terminal and repeater (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 therapy FOLATE Routine 08/20/2025 4:50 AM EDT Malignant neoplasm of unspecified part of left bronchus or lung (CMS/HCC V24, CMS/HCC V28) Respiratory failure, unspecified, unspecified whether with hypoxia or hypercapnia (CMS/HCC V24, CMS/HCC V28) Other technician terminal and repeater (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 therapy VITAMIN B12 Routine 08/20/2025 4:50 AM EDT Malignant neoplasm of unspecified part of left bronchus or lung (CMS/HCC V24, CMS/HCC V28) Respiratory failure, unspecified, unspecified whether with hypoxia or hypercapnia (CMS/HCC V24, CMS/HCC V28) Other senior care (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 therapy COMPREHENSIVE METABOLIC PANEL Routine 08/20/2025 4:50 AM EDT Malignant neoplasm of unspecified part of left bronchus or lung (CMS/HCC V24, CMS/HCC V28) Respiratory failure, unspecified, unspecified whether with hypoxia or hypercapnia (CMS/HCC V24, CMS/HCC V28) Other senior care (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 therapy documented in this encounter Results * Vitamin D 25 hydroxy (08/20/2025 4:50 AM EDT) Vit D, 25-Hydroxy 37.7 30.0 - 80.0 ng/mL LAB CHEMISTRY METHOD 08/20/2025 12:17 PM EDT [facility] Blood Venous blood specimen / Unknown Venipuncture / Unknown 08/20/2025 4:50 AM EDT 08/20/2025 9:32 AM EDT us Janice Núñez MD LAB BLOOD ORDERABLES Final Resul t Performing Organization Address City/[facility]/ZIP Co de Phone Number [facility] [address] [place] [address], [place] [phone] * Vitamin B12 (08/20/2025 4:50 AM EDT) Pathologist [facility] [place] Vitamin B-12 592 250 - 900 pcg/mL LAB CHEMISTRY METHOD 08/20/2025 11:03 AM EDT [facility] Blood Venous blood specimen / Unknown Venipuncture / Unknown 08/20/2025 4:50 AM EDT 08/20/2025 9:32 AM EDT us Janice Núñez MD LAB BLOOD ORDERABLES Final Resul t Performing Organization Address City/[facility]/ZIP Co de Phone Number [facility] [address] [place] [address], [place] [phone] * Hemoglobin A1c (08/20/2025 4:50 AM EDT) [facility] Hemoglobin A1C 5.8 <6.5 % LAB CHEMISTRY METHOD 08/20/2025 12:16 PM EDT [facility] Mean Bld Glu Estim. 120 mg/dL LAB CHEMISTRY METHOD 08/20/2025 12:16 PM EDT [facility] Blood Venous blood specimen / Unknown Venipuncture / Unknown 08/20/2025 4:50 AM EDT 08/20/2025 9:32 AM EDT us Janice Núñez MD LAB BLOOD ORDERABLES Final Resul t [facility] [address] [place] [address], [place] [phone] * Thyroid stimulating hormone (08/20/2025 4:50 AM EDT) [facility] TSH 2.01 0.40 - 4.00 mcIU/mL LAB CHEMISTRY METHOD 08/20/2025 12:18 PM EDT [facility] Blood Venous blood specimen / Unknown Venipuncture / Unknown 08/20/2025 4:50 AM EDT 08/20/2025 9:32 AM EDT us Janice Núñez MD LAB BLOOD ORDERABLES Final Resul t [facility] [address] [place] [address], [place] [phone] * (ABNORMAL) Folate (08/20/2025 4:50 AM EDT) [facility] Folate 19.1(H) 2.8 - 17.0 ng/ml LAB CHEMISTRY METHOD 08/20/2025 11:03 AM EDT [facility] Blood Venous blood specimen / Unknown Venipuncture / Unknown 08/20/2025 4:50 AM EDT 08/20/2025 9:32 AM EDT us Janice Núñez MD LAB BLOOD ORDERABLES Final Resul t [facility] [address] [place] [address], [place] [phone] * (ABNORMAL) Comprehensive metabolic panel (08/20/2025 4:50 AM EDT) Sodium 140 133 - 145 mmol/L LAB CHEMISTRY METHOD 08/20/2025 11:04 AM [facility] Potassium 3.3(L) 3.5 - 5.5 mmol/L LAB CHEMISTRY METHOD 08/20/2025 11:04 AM [facility] Chloride 102 96 - 110 mmol/L LAB CHEMISTRY METHOD 08/20/2025 11:04 AM [facility] CO2 31 21 - 32 mmol/L LAB CHEMISTRY METHOD 08/20/2025 11:04 AM [facility] Anion Gap 7 3 - 11 LAB CHEMISTRY METHOD 08/20/2025 11:04 AM [facility] Glucose 81 70 - 100 mg/dL LAB CHEMISTRY METHOD 08/20/2025 11:04 AM [facility] BUN 19 5 - 25 mg/dL LAB CHEMISTRY METHOD 08/20/2025 11:04 AM [facility] Creatinine 0.78 0.50 - 1.10 mg/dL LAB CHEMISTRY METHOD 08/20/2025 11:04 AM [facility] eGFR 81 >=60 mL/min/1. 73m2 LAB CHEMISTRY METHOD 08/20/2025 11:04 AM [facility] Comment:Calculation based on the Chronic Kidney Disease Epidemiology Collaboration (CKD-EPI) equation refit without adjustment for race. BUN/Creatinine Ratio 24.4 LAB CHEMISTRY METHOD 08/20/2025 11:04 AM [facility] Calcium 8.4(L) 8.5 - 10.5 mg/dL LAB CHEMISTRY METHOD 08/20/2025 11:04 AM EDT [facility] AST (SGOT) 18 10 - 42 unit/L LAB CHEMISTRY METHOD 08/20/2025 11:04 AM [facility] ALT (SGPT) 29 10 - 60 unit/L LAB CHEMISTRY METHOD 08/20/2025 11:04 AM EDT [facility] Alkaline Phosphatase 78 42 - 121 unit/L LAB CHEMISTRY METHOD 08/20/2025 11:04 AM T [facility] Total Protein 5.9(L) 6.0 - 8.0 g/dL LAB CHEMISTRY METHOD 08/20/2025 11:04 AM [facility] Albumin 3.2 3.2 - 5.0 g/dL LAB CHEMISTRY METHOD 08/20/2025 11:04 AM [facility] Total Bilirubin 0.1 0.0 - 1.4 mg/dL LAB CHEMISTRY METHOD 08/20/2025 11:04 AM [facility] Blood Venous blood specimen / Unknown Venipuncture / Unknown 08/20/2025 4:50 AM EDT 08/20/2025 9:32 AM EDT us Janice Núñez MD LAB BLOOD ORDERABLES Final Resul t [facility] [address] [place] [address], [place] [phone] * (ABNORMAL) Complete blood count (08/20/2025 4:50 AM EDT) WBC 7.6 4.8 - 10.8 K/mcL LAB HEMETOLOGY METHOD 08/20/2025 9:58 AM EDT [facility] RBC 3.80 3.80 - 4.80 M/mcL LAB HEMETOLOGY METHOD 08/20/2025 9:58 AM [facility] Hemoglobin 10.5(L) 11.5 - 16.0 g/dL LAB HEMETOLOGY METHOD 08/20/2025 9:58 AM [facility] Hematocrit 34.8(L) 35.0 - 47.0 % LAB HEMETOLOGY METHOD 08/20/2025 9:58 AM [facility] MCV 92.1 79.0 - 98.0 FL LAB HEMETOLOGY METHOD 08/20/2025 9:58 AM [facility] MCH 27.8 27.0 - 32.0 pcg LAB HEMETOLOGY METHOD 08/20/2025 9:58 AM [facility] MCHC 30.2(L) 32.0 - 37.0 g/dL LAB HEMETOLOGY METHOD 08/20/2025 9:58 AM [facility] RDW 16.4(H) 11.0 - 15.0 % LAB HEMETOLOGY METHOD 08/20/2025 9:58 AM [facility] Platelets 306 130 - 400 K/mcL LAB HEMETOLOGY METHOD 08/20/2025 9:58 AM [facility] MPV 9.1 7.0 - 11.0 FL LAB HEMETOLOGY METHOD 08/20/2025 9:58 AM [facility] NRBC 0.0 <1.0 % LAB HEMETOLOGY METHOD 08/20/2025 9:58 AM [facility] NRBC Absolute 0.00 <0.10 K/mcL LAB HEMETOLOGY METHOD 08/20/2025 9:58 AM [facility] Blood Venous blood specimen / Unknown Venipuncture / Unknown 08/20/2025 4:50 AM EDT 08/20/2025 9:32 AM EDT us Fahim A Wilton MD LAB BLOOD ORDERABLES Final Resul t [facility] [address] [place] [address], documented in this encounter Visit Diagnoses Diagnosis Malignant neoplasm of unspecified part of left bronchus or lung ([facility] V24, [facility] V28) Respiratory failure, unspecified, unspecified whether with hypoxia or hypercapnia ([facility] V24, [facility] V28) Other technician terminal and repeater (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 therapy documented in this encounter Additional Health Concerns Infection Onset Date Last Indicated Resolved Time Respiratory Rule-Out 09/05/2025 09/05/2025 025 3:59 PM EDT COVID-19 Rule-Out 09/05/2025 09/05/2025 09/05/2025 3:59 PM EDT Assessment Noted Time PHQ-9 Depression Total Score: 1 07/19/20 25 5:04 PM EDT documented as of this encounter Care Teams Development Geologist Relationship Specialty Start Date End Date Kinjal Barron FNP [address] [place] [phone] PCP - General Family Medicine 03/06/25 documented as of this encounter
--- OUTSIDE RECORDS SUMMARY | 2025-11-17 11:23 | XMS_ITS | Encounter Summary ---
Author Organization [facility] Address [address] [place] [address] Care Team Providers Care Telephone Collector Name Role Phone Kinjal Barron BUSINESS RULES DEVELOPER Primary Care Provid er Encounter Details Date Type Department Care Team (Late st Contact Info) Description 09/03/2025 Lab Requisition [facility] - Main Lab [address] [place] [address] Janice Núñez MD [address] [place], [place] [id number] Malignant neoplasm of unspecified part of left [...] Description 02/18/2026 10:30 AM EDT Office Visit [facility] Hematology Oncology [address] [place] [phone] Lashanda Mcgill, [address] [place] [address] documented as of this encounter Procedures Procedure [...] mmol/L LAB CHEMISTRY METHOD 09/04/2025 11:05 AM [facility] Potassium 3.5 3.5 - 5.5 mmol/L LAB CHEMISTRY METHOD 09/04/2025 11:05 AM [facility] Chloride 99 96 - 110 mmol/L LAB CHEMISTRY METHOD 09/04/2025 11:05 AM [facility] CO2 34(H) 21 - 32 mmol/L LAB CHEMISTRY METHOD 09/04/2025 11:05 AM [facility] Anion Gap 6 3 - 11 LAB CHEMISTRY METHOD 09/04/2025 11:05 AM [facility] Glucose 88 70 - 100 mg/dL LAB CHEMISTRY METHOD 09/04/2025 11:05 AM [facility] BUN 13 5 - 25 mg/dL LAB CHEMISTRY METHOD 09/04/2025 11:05 AM [facility] Creatinine 0.86 0.50 - 1.10 mg/dL LAB CHEMISTRY METHOD 09/04/2025 11:05 AM [facility] eGFR 72 >=60 mL/min/1. 73m2 LAB CHEMISTRY METHOD 09/04/2025 11:05 AM [facility] Comment:Calculation based on the Chronic Kidney Disease Epidemiology Collaboration (CKD-EPI) equation refit without adjustment for race. BUN/Creatinine Ratio 15.1 LAB CHEMISTRY METHOD 09/04/2025 11:05 AM EDT [facility] Calcium 8.8 8.5 - 10.5 mg/dL LAB CHEMISTRY METHOD [facility] Blood Venous blood specimen / Unknown Venipuncture / Unknown 09/04/2025 6:53 AM EDT 09/04/2025 9:34 AM EDT us Janice Núñez MD LAB BLOOD ORDERABLES Final Resul t [facility] [address] [place] [address], [place] [phone] * (ABNORMAL) Complete blood count (09/04/2025 6:53 AM EDT) WBC 4.1(L) 4.8 - 10.8 K/mcL LAB HEMETOLOGY METHOD 09/04/2025 10:12 AM [facility] RBC 4.00 3.80 - 4.80 M/mcL LAB HEMETOLOGY METHOD 09/04/2025 10:12 AM [facility] Hemoglobin 10.9(L) 11.5 - 16.0 g/dL LAB HEMETOLOGY METHOD 09/04/2025 10:12 AM [facility] Hematocrit 37.5 35.0 - 47.0 % LAB HEMETOLOGY METHOD 09/04/2025 10:12 AM [facility] MCV 94.5 79.0 - 98.0 FL LAB HEMETOLOGY METHOD 09/04/2025 10:12 AM [facility] MCH 27.5 27.0 - 32.0 pcg LAB HEMETOLOGY METHOD 09/04/2025 10:12 AM [facility] MCHC 29.1(L) 32.0 - 37.0 g/dL LAB HEMETOLOGY METHOD 09/04/2025 10:12 AM EDT [facility] RDW 15.9(H) 11.0 - 15.0 % LAB HEMETOLOGY METHOD 09/04/2025 10:12 AM EDT [facility] Platelets 356 130 - 400 K/mcL LAB HEMETOLOGY METHOD 09/04/2025 10:12 AM EDT [facility] MPV 9.4 7.0 - 11.0 FL LAB HEMETOLOGY METHOD 09/04/2025 10:12 AM EDT [facility] NRBC 0.0 <1.0 % LAB HEMETOLOGY METHOD 09/04/2025 10:12 AM EDT [facility] NRBC Absolute 0.00 <0.10 K/mcL LAB HEMETOLOGY METHOD 09/04/2025 10:12 AM EDT [facility] Blood Venous blood specimen / Unknown Venipuncture / Unknown 09/04/2025 6:53 AM EDT 09/04/2025 10:12 AM EDT us Janice Núñez MD LAB BLOOD ORDERABLES Final Resul t [facility] [address] [place] [address], documented in this encounter Visit Diagnoses Diagnosis [...] documented as of this encounter Care Teams Telephone Collector Relationship Specialty Start Date End Date Kinjal Barron FNP [address] [facility] [place] [address] PCP - General Family Medicine 03/06/25 documented as of this encounter
--- OUTSIDE RECORDS SUMMARY | 2025-11-17 11:23 | XMS_ITS | Encounter Summary ---
Author Organization [facility] Address [address] [place] [address] Care Team Providers Care Forest Landscape Ecology Professor Name Role Phone Kinjal Barron CIRCULATION ANALYST Primary Care Provid er Encounter Details Date Type Department Care Team (Late st Contact Info) Description 08/27/2025 Lab Requisition [facility] - Main Lab [address] [place] [address] Janice Núñez MD [address] [place], [place] [phone] Malignant neoplasm of unspecified part of left [...] [facility] Hematology Oncology [address] [place] [phone] Lashanda Mcgill, [address] [place] [address] documented as of this encounter Procedures Procedure [...] mmol/L LAB CHEMISTRY METHOD 08/28/2025 1:05 PM [facility] Potassium 3.4(L) 3.5 - 5.5 mmol/L LAB CHEMISTRY METHOD 08/28/2025 1:05 PM [facility] Chloride 97 96 - 110 mmol/L LAB CHEMISTRY METHOD 08/28/2025 1:05 PM [facility] CO2 36(H) 21 - 32 mmol/L LAB CHEMISTRY METHOD 08/28/2025 1:05 PM [facility] Anion Gap 5 3 - 11 LAB CHEMISTRY METHOD 08/28/2025 1:05 PM [facility] Glucose 111(H) 70 - 100 mg/dL LAB CHEMISTRY METHOD 08/28/2025 1:05 PM [facility] BUN 15 5 - 25 mg/dL LAB CHEMISTRY METHOD 08/28/2025 1:05 PM [facility] Creatinine 0.78 0.50 - 1.10 mg/dL LAB CHEMISTRY METHOD 08/28/2025 1:05 PM [facility] eGFR 81 >=60 mL/min/1. 73m2 LAB CHEMISTRY METHOD 08/28/2025 1:05 PM [facility] [...] Resul t [facility] [address] [place] [address], [place] [phone] * (ABNORMAL) Complete blood count (08/28/2025 9:04 AM EDT) WBC 3.8(L) 4.8 - 10.8 K/mcL LAB HEMETOLOGY METHOD 08/28/2025 1:14 PM EDT [facility] RBC 4.20 3.80 - 4.80 M/mcL LAB HEMETOLOGY METHOD 08/28/2025 1:14 PM [facility] Hemoglobin 12.0 11.5 - 16.0 g/dL LAB HEMETOLOGY METHOD 08/28/2025 1:14 PM T [facility] Hematocrit 40.8 35.0 - 47.0 % LAB HEMETOLOGY METHOD 08/28/2025 1:14 PM [facility] MCV 96.2 79.0 - 98.0 FL LAB HEMETOLOGY METHOD 08/28/2025 1:14 PM [facility] MCH 28.3 27.0 - [...] Resul t [facility] [address] [place] [address], documented in this encounter Visit Diagnoses Diagnosis [...] documented as of this encounter Care Teams Forest Landscape Ecology Professor Relationship Specialty Start Date End Date Kinjal Barron FNP [address] [place] [phone] PCP - General Family Medicine 03/06/25 documented as of this encounter
[2025-11-17 11:32] LABS: Anion Gap 12 (12-20); Blood Urea Nitrogen 15 mg/dL (9-16); Calcium 8.8 mg/dL (8.4-10.2); Carbon Dioxide 41 mmol/L (22-29); Chloride 93 mmol/L (96-108); Cholesterol 144 mg/dL (<200); Creatinine Clr Calc Pharmacy 60.5; Estimated Glomerular Filt Rate > 60; HDL Cholesterol 75 mg/dL (>40); Potassium 3.5 mmol/L (3.3-5.1); Sodium 142 mmol/L (135-145); Triglycerides 63 mg/dL (<150)
[2025-11-17 11:36] LABS: Troponin-I High Sensitivity 9.9 ng/L (<3.5-17.0)
[2025-11-17 11:45] LABS: MANUAL DIFF FLAG SCAN
--- NOTE | 2025-11-17 12:10 | PC.NURSE ---
Pt wears 5L O2 NC at baseline- sats >92% on 5L. Pt does desat into mid 80s when moving around in bed/laying down. Able to recover O2 sat to >92% with deep breaths.
[2025-11-17 12:23] LABS: Stroke Lab Use COMPLETE
[2025-11-17 12:29] LABS: OBS Int Ctl Valid YES; OBS1 POSITIVE (NEGATIVE)
[2025-11-17 12:51] LABS: Iron 16 mcg/dL (30-160); Percent Iron Saturation 5 % (15-50); Total Iron Binding Capacity 310 mcg/dL (228-428); Unsaturated Iron Binding 294 ug/dL
--- NOTE | 2025-11-17 12:54 | PM.IMHP ---
History of Present Illness Date of Service: 11/17/25 Chief Complaint: expressive aphasia 70F PMH chronic hypoxic and hypercapnic respiratory failure due to COPD on 6 L home O2, lung CA, paroxysmal AFib on Eliquis, ELMER on CPAP, obesity, mood disorder, cor pulmonale, hypertension, hyperlipidemia presented with expressive aphasia. Patient states symptoms began at 07:00 on day of presentation. Was trying to talk on the phone and had trouble getting the words out. She told staff at [facility] and called 911. in ED patient reports resolution of symptoms, found to have hgb of 6.8, down from baseline, patient denies bloody or dark stools, stool in ED dark and occult positive. CTH unremarkable. Review of Systems Review of Systems: Yes all other systems are reviewed and are negative [facility] Medical History Lung cancer Pulmonary nodule 1 cm or greater in diameter Lung mass ELMER (obstructive sleep apnea) Cor pulmonale Rib fractures Pulmonary nodule Tubular adenoma of colon (~2006) Osteopenia (~2012) Bronchopneumonia Chest pain Chronic respiratory alkalosis ILD (interstitial lung disease) CO2 retention Acute on chronic respiratory failure with hypoxia and hypercapnia Bipolar depression Eczema Limb swelling Insomnia Bronchitis Vasomotor rhinitis COPD (chronic obstructive pulmonary disease) Chronic respiratory failure Fall Acute metabolic encephalopathy Acute and chronic respiratory failure with hypercapnia Family History Other Hypertension Surgical History History of carpal tunnel surgery (~2000) History of ventral hernia repair (~2003) History of left inguinal hernia repair (~1995) History of tracheostomy (~2016) History of cataract surgery (~2018) History of colonoscopy Social History Household Members: Other Household Members Other:: Daughter, son-in-law, grandchildren Housing: [facility] Housing Other:: shelter Are you a primary respiratory care assistant to a significant other at home: No Do you presently have visiting nurse or other home services: No Alcohol intake: former Patient Tobacco Use Status: Former Tobacco user Tobacco use type: Cigarette Years Smoked: 20+ years e-Cigarette/Vaping Use: Never Used Second Hand Smoke Exposure: No Advance Directives: Yes Advance Directives on File: Yes Advance Directives Date on File: 11/30/21 Do you have a plan to hurt others: No Plan service: No Current occupational status: disabled Meds Allergies Allergy/AdvReac Type Severity Reaction Status Date / Time fluoxetine Allergy Severe Irritable Verified 11/17/25 10:41 codeine (Codeine) Allergy Intermediate RESTLESS/RA Verified 11/17/25 10:41 SH haloperidol (Haldol) Allergy Intermediate Palpitation Verified 11/17/25 10:41 s Active Medications: Current Medications Acetaminophen (Acetaminophen 325 Mg Tablet) 650 mg PO Q6H PRN PRN Reason: Pain, Mild 1-3,fever,headache Calcium Carbonate (Calcium Carbonate 750 Mg Tab.Chew) 750 mg PO Q4H PRN PRN Reason: Heartburn Magnesium Hydroxide (Milk Of Magnesia 30 Ml Oral.Susp) 30 ml PO DAILY PRN PRN Reason: Constipation Melatonin (Melatonin 3 Mg Tablet) 6 mg PO BEDTIME PRN PRN Reason: Insomnia Pantoprazole Sodium (Pantoprazole Sodium 40 Mg/10 Ml Vial) 40 mg IVPUSH BID@0630,1630 [facility] Sodium Chloride (0.9 % Sodium Chloride Flush 3 Ml Syringe) [facility] Medications ?Medication ?Instructions ?Recorded ?Confirmed ?Last Taken ?Type alendronate 70 mg tablet (Fosamax) 70 mg PO DOMINGUEZ 02/09/21 10/23/25 08/04/25 History mirtazapine 15 mg tablet 7.5 mg PO BEDTIME 09/10/21 10/23/25 08/06/25 History sennosides 8.6 mg tablet (Senokot) 8.6 mg PO BEDTIME 09/10/21 10/23/25 08/05/25 History Oxygen Home Use 04/15/23 10/22/24 Unknown History nebulizers 04/15/23 10/22/24 Unknown History pantoprazole 40 mg tablet,delayed 40 mg PO DAILY@0630 06/21/24 10/23/25 08/06/25 History release docusate sodium 100 mg capsule 100 mg PO DAILY PRN Constipation 07/27/24 10/23/25 08/19/24 History aripiprazole 10 mg tablet 10 mg PO DAILY 08/20/24 10/23/25 08/06/25 History mineral oil 1 appl topical Q48H PRN eczema 08/20/24 10/23/25 Unknown History omega 2-fat-ikr-fish oil 1,000 mg 1 cap PO BID 08/20/24 10/23/25 08/06/25 History (120 mg-180 mg) capsule (Fish Oil) apixaban 5 mg tablet (Eliquis) 5 mg PO BID 09/26/24 10/23/25 08/06/25 History gabapentin 100 mg capsule 100 mg PO BID 01/18/25 10/23/25 08/06/25 History ferrous gluconate 324 mg (38 mg 324 mg PO DAILY 07/25/25 10/23/25 08/06/25 History iron) tablet calcium carbonate (Oyster Shell 500 mg PO BID 08/06/25 10/23/25 Unknown History Calcium) cholecalciferol (vitamin D3) 25 25 mcg PO DAILY 08/06/25 10/23/25 Unknown History mcg (1,000 unit) tablet (Vitamin D3) fluticasone furoate 200 1 ea inhalation DAILY dyspnea 08/06/25 10/23/25 08/06/25 History mcg-vilanterol 25 mcg/dose inhalation powder (Breo Ellipta) furosemide 40 mg tablet 40 mg PO DAILY 08/06/25 10/23/25 08/06/25 History lactulose 10 gram/15 mL oral 15 ml PO DAILY PRN constipation 08/06/25 10/23/25 Unknown History solution (Enulose) lamotrigine 200 mg tablet 200 mg PO BID 08/06/25 10/23/25 08/06/25 History vilazodone 40 mg tablet 40 mg PO DAILY 08/06/25 10/23/25 08/06/25 History L.acidophilus-bif.longum 15 mg (1 1 cap PO DAILY 10/23/25 10/23/25 Unknown History billion cell)capsule,delayed release (Probiotic Pearls) acetaminophen 325 mg tablet 650 mg PO Q4H PRN Fever/Pain 10/23/25 10/23/25 Unknown History acetazolamide 250 mg tablet 250 mg PO MOWEFR 10/23/25 10/23/25 Unknown History aspirin 81 mg tablet 81 mg PO DAILY 10/23/25 10/23/25 Unknown History atorvastatin 40 mg tablet 40 mg PO DAILY 10/23/25 10/23/25 Unknown History bisacodyl 10 mg rectal suppository 10 mg AK DAILY PRN Constipation 10/23/25 10/23/25 Unknown History guaifenesin 600 mg tablet, 1,200 mg PO BID PRN Congestion 10/23/25 10/23/25 Unknown History extended release 12 hr guaifenesin 600 mg tablet, 600 mg PO BID 10/23/25 10/23/25 Unknown History extended release 12 hr loratadine 10 mg tablet (Claritin) 10 mg PO DAILY 10/23/25 10/23/25 Unknown History magnesium hydroxide 400 mg/5 mL 30 ml PO DAILY PRN Constipation 10/23/25 10/23/25 Unknown History oral suspension (Milk of Magnesia) metoprolol succinate 100 mg 100 mg PO DAILY 10/23/25 10/23/25 Unknown History tablet,extended release 24 hr prednisone 10 mg tablet 10 mg PO DAILY 10/23/25 10/23/25 Unknown History Held on 10/25/25. Instructions: Resume on 11/08/25. Resume after prolonged prednisone taper sodium phosphates 19 gram-7 118 ml AK DAILY PRN Constipation 10/23/25 10/23/25 Unknown History gram/197 mL enema (Fleet Enema Extra) tramadol 50 mg tablet 50 mg PO Q6H PRN Pain 10/23/25 10/23/25 Unknown History trazodone 50 mg tablet 12.5 mg PO BEDTIME Sleep 10/23/25 10/23/25 Unknown History Physical Exam Vital Signs and Narrative: Vital Signs: Last Vital Signs Temp 99.9 F 11/17/25 11:10 Pulse 98 11/17/25 12:19 Resp 18 11/17/25 12:19 BP 130/55 L 11/17/25 12:19 Pulse Ox 93 11/17/25 12:19 O2 Del Method Nasal Cannula 11/17/25 12:19 O2 Flow Rate 5 11/17/25 12:19 Oxygen Flow Rate 5 11/17/25 10:32 BMI result Body Mass Index 37.4 General: AO X 3, frail appearing, chronically ill Resp: diminished bilateral, no accessory muscles used CVS: S1,S2,RRR GI: soft, non tender, non distended Neuro: motor grossly intact, alert, mild expressive aphasia Psych: appropriate affect, appropriate insight Results Labs 11/17/25 11:06 11/17/25 11:06 Labs: Laboratory Results - last 24 hr 11/17/25 11/17/25 11/17/25 11:06 11:11 12:20 MCV 91.2 MCH 24.8 L MCHC 27.2 L RDW 16.1 H Plt Count 384 MPV 8.5 L Immature Gran % (Auto) 0.8 H Neut % (Auto) 83.9 H Lymph % (Auto) 4.2 L Story % (Auto) 7.6 Eos % (Auto) 3.1 Baso % (Auto) 0.4 Lymph # (Auto) 0.3 L [place] # (Auto) 0.6 Eos # (Auto) 0.3 Baso # (Auto) 0.0 Abs Immat Gran (auto) 0.06 H Absolute Neuts (auto) 6.7 Absolute Nucleated RBC 0.000 Nucleated RBC % (auto) 0.0 Smear Tech's Comments VERIFIED PT 16.9 H INR 1.4 H APTT 35.4 H Anion Gap 12 Estim Creat Clear Calc 60.5 Estimated GFR > 60 Random Glucose 81 Calcium 8.8 D Iron 16 L TIBC 310 % Saturation 5 L Unsat Iron Binding 294 Troponin I High Sens 9.9 Triglycerides 63 Cholesterol 144 LDL Cholesterol, Calc 57 HDL Cholesterol 75 Urine Color Yellow Urine Appearance Clear Urine pH 6.5 Ur Specific [place] 1.010 Urine Protein Trace Urine Glucose (UA) Negative Urine Ketones Negative Urine Blood Small (1+) H Urine Nitrite Negative Ur Leukocyte Esterase Negative Urine RBC 0-2 Urine WBC 0-5 Ur Squamous Epith Cells 0-2 Urine Bacteria None Seen Hyaline Casts 0-2 Stool Occult Blood POSITIVE Crossmatch 11/17/25 12:25 MCV MCH MCHC RDW Plt Count MPV Immature Gran % (Auto) Neut % (Auto) Lymph % (Auto) Story % (Auto) Eos % (Auto) Baso % (Auto) Lymph # (Auto) Story # (Auto) Eos # (Auto) Baso # (Auto) Abs Immat Gran (auto) Absolute Neuts (auto) Absolute Nucleated RBC Nucleated RBC % (auto) Smear Tech's Comments PT INR APTT Anion Gap Estim Creat Clear Calc Estimated GFR Random Glucose Calcium Iron TIBC % Saturation Unsat Iron Binding Troponin I High Sens Triglycerides Cholesterol LDL Cholesterol, Calc HDL Cholesterol Urine Color Urine Appearance Urine pH Ur Specific [place] Urine Protein Urine Glucose (UA) Urine Ketones Urine Blood Urine Nitrite Ur Leukocyte Esterase Urine RBC Urine WBC Ur Squamous Epith Cells Urine Bacteria Hyaline Casts Stool Occult Blood Crossmatch See Detail Assessment and Plan (1) Cor pulmonale: Status: Acute Plan 70F PMH chronic hypoxic and hypercapnic respiratory failure due to COPD on 6 L home O2, lung CA, paroxysmal AFib on Eliquis, ELMER on CPAP, obesity, mood disorder, cor pulmonale, hypertension, hyperlipidemia presented with expressive aphasia Expressive aphasia Rule out TIA/cva no antiplatelet or AC due to anemia statin neuro eval mri tele acute anemia labs c/w iron deficiency, likely acute blood loss anemia in patient on eliquis hold eliquis iv ppi transfusing 1 unit prbc, monitor gi eval Chronic hypoxic and hypercapnic respiratory failure due to COPD stable pafib toprol, hold eliquis elmer cpap dvt prophylaxis - mechanical due to gi bleed full code given acute anemia need for transfusion, gi eval, close monitoring and possible scope, expected to require atleast 2 midnights inpatient Quality Stroke Does the patient have a stroke diagnosis?: No VTE Prior VTE?: No VTE Risk Level:: Medical - moderate - high VTE Device Contraindication: N/A - Device Ordered VTE Drug Contraindication: Treatment Not Tolerated
--- NOTE | 2025-11-17 14:26 | PHA.MEDREC ---
Addendum entered by Johnathon Singh PharmD 11/17/25 14:34: reviewed Original Note: Pharmacy Consult ? Medication Reconciliation Pharmacy has completed the medication reconciliation. Confirmed medication list against claims history and medication list from other facility.
[2025-11-17 14:43] LABS: Folate 8.4 ng/mL (> or = 4.0); Vitamin B12 558 pg/mL (200-900)
[2025-11-17] MEDS: Albuterol Sulfate (0.083%) 2.5 MG/3 ML VIAL.NEB INHALE ×2 (15:20→20:22)
[2025-11-17] MEDS: Ipratropium Bromide 0.5 MG/2.5 ML SOLUTION INHALE ×2 (15:20→20:26)
[2025-11-17] MEDS: 0.9 % Sodium Chloride Flush 3 ML SYRINGE IVFLUSH ×2 (16:50→20:25)
[2025-11-17] MEDS: Theophylline Anhydrous ER 300 MG TAB.ER.12H PO (18:30)
--- NOTE | 2025-11-17 18:57 | HO.NURTONUR ---
70 y/o F, a/ox3, Full Code BIBA from [facility] for ?stroke like s/s starting around 0700am. LKW 11/16/25 approx 1900pm. Pt endorsing mild aphasia/increased weakness- sudden onset with waking up this am. Neuro Assessment: A/ox3, speaking in full sentences, follows commands appropriately/answers questions. No facial droop/drift noted, equal strength bilaterally. Labs: Hgb 6.8, Hct 25.0, pT 16.9, INR 1.4 (eliquis), aPTT 35.4, CO2 41, Chloride 93, Stool Occt + (denied any recent bloody/dark stool0 Reports: EKG- Sinus tachy (HR 101), Head CT- negative, MRI pending (form is done and faxed) Port Accessed R chest- she got 1 unit PRBC and Protonix @1630 Wears 5L O2 NC at baseline- she does desat into mid 80s when moving in the bed/laying down. Able to recover with deep breaths- sats increase to >92% Purewick- has not gotten out of bed d/t desat.
[2025-11-17] MEDS: Calcium Oyster Shell Elemental 500 MG TABLET PO (20:21)
[2025-11-17] MEDS: traZODone HCL 25 MG HALFTAB PO (20:21)
[2025-11-18] VITALS (12 sets, daily range): BP systolic 108–118; BP diastolic 54–61; PULSE 18–92; RESP 16–23; TEMP 36.1–37.3; O2SAT 93–98
[2025-11-18] MEDS: Theophylline Anhydrous ER 300 MG TAB.ER.12H PO ×2 (06:11→18:15)
--- NOTE | 2025-11-18 07:22 | HO.PM.IMPN ---
Subjective Subjective Date of Service: 11/18/25 Interval History: MRI without any acute changes Pt reports vertigo when looking down Imaging thus far unremarkable Poor prognosis S/p 1 U PRBC GOC ongoing- pt would like to keep her code status as Full code Son updated over the phone Review of Systems Review of Systems: Yes all other systems are reviewed and are negative Physical Exam Exam: Exam: General: AOx3, frail-appearing, pulmonary cachexia, hoarse voice Resp: Rhonchorous breathing, requiring 6 L O2, accessory muscle use CVS: S1, S2, RRR GI: +BS, NT, no distention Psych: Poor insight Vital Signs: Vital Signs: Last Vital Signs Temp 97 F 11/18/25 03:29 Pulse 78 11/18/25 03:29 Resp 18 11/18/25 03:29 BP 108/61 11/18/25 03:29 Pulse Ox 93 11/18/25 03:29 O2 Del Method BiPAP 11/18/25 03:29 O2 Flow Rate 5 11/17/25 20:00 FiO2 40 11/18/25 03:29 Oxygen Flow Rate 5 11/17/25 10:32 BMI result Body Mass Index 36.2 Objective Data Active Medications Acetaminophen (Acetaminophen 325 Mg Tablet) 650 mg PO Q6H PRN PRN Reason: Pain, Mild 1-3,fever,headache Acetazolamide (Acetazolamide 250 Mg Tablet) 250 mg PO MoWeFr@0900 [facility] Albuterol Sulfate (Albuterol Sulfate 90 Mcg 8 Gm Inhaler) 2 puff INHALE Q6H PRN PRN Reason: Respiratory Distress Albuterol Sulfate (Albuterol Sulfate (0.083%) 2.5 Mg/3 Ml Vial.Neb) 2.5 mg INHALE RQID [facility] Last Admin: 11/17/25 20:22 Dose: 2.5 mg Documented By: BERNABE Aripiprazole (Aripiprazole 10 Mg Tablet) 10 mg PO DAILY [facility] Atorvastatin Calcium (Atorvastatin Calcium 40 Mg Tablet) 40 mg PO DAILY [facility] Calcium Carbonate (Calcium Carbonate 750 Mg Tab.Chew) 750 mg PO Q4H PRN PRN Reason: Heartburn Calcium Carbonate (Calcium Oyster Shell Elemental 500 Mg Tablet) 500 mg PO BID [facility] Last Admin: 11/17/25 20:21 Dose: 500 mg Documented By: ADRIANA Fluticasone/Vilanterol (Fluticasone/Vilanterol 200/25 Blst.W.Dev) 1 puff INHALE RDAILY [facility] Gabapentin (Gabapentin 100 Mg Capsule) 100 mg PO BID [facility] Last Admin: 11/17/25 20: Dose: 100 mg Documented By: ADRIANA Ipratropium [place] (Ipratropium [place] 0.5 Mg/2.5 Ml Solution) 0.5 mg INHALE RQID [facility] Last Admin: 11/17/25 20:26 Dose: 0.5 mg Documented By: BERNABE Lamotrigine (Lamotrigine 100 Mg Tablet) 200 mg PO BID [facility] Last Admin: 11/17/25 20: Dose: 200 mg Documented By: ADRIANA Loratadine (Loratadine 10 Mg Tablet) 10 mg PO DAILY [facility] Lorazepam (Lorazepam 0.5 Mg Tablet) 0.25 mg PO BEDTIME [facility] Last Admin: 11/17/25 20: Dose: 0.25 mg Documented By: ADRIANA Magnesium Hydroxide (Milk Of Magnesia 30 Ml Oral.Susp) 30 ml PO DAILY PRN PRN Reason: Constipation Melatonin (Melatonin 3 Mg Tablet) 6 mg PO BEDTIME PRN PRN Reason: Insomnia Metoprolol Succinate (Metoprolol Succinate Er 100 Mg Tab.Er.24h) 100 mg PO DAILY [facility]; Protocol Mirtazapine (Mirtazapine 7.5 Mg Tablet) 7.5 mg PO BEDTIME [facility] Last Admin: 11/17/25 20: Dose: 7.5 mg Documented By: ADRIANA Montelukast Sodium (Montelukast Sodium 10 Mg Tablet) 10 mg PO BEDTIME [facility] Last Admin: 11/17/25 20:21 Dose: 10 mg Documented By: ADRIANA Pantoprazole Sodium (Pantoprazole Sodium 40 Mg/10 Ml Vial) 40 mg IVPUSH BID@0630,1630 [facility] Last Admin: 11/18/25 06:11 Dose: 40 mg Documented By: ADRIANA Prednisone (Prednisone 10 Mg Tablet) 10 mg PO DAILY [facility] Senna (Sennosides 8.6 Mg Tablet) 8.6 mg PO BEDTIME [facility] Last Admin: 11/17/25 20: Dose: 8.6 mg Documented By: ADRIANA Sodium Chloride (0.9 % Sodium Chloride Flush 3 Ml Syringe) 3 ml IVFLUSH QSHIFT [facility] Last Admin: 11/17/25 20:25 Dose: 3 ml Documented By: ADRIANA Theophylline (Theophylline Anhydrous Er 300 Mg Tab.Er.12h) 300 mg PO Q12H [facility] Last Admin: 11/18/25 06:11 Dose: 300 mg Documented By: ADRIANA Tramadol HCl (Tramadol Hcl 50 Mg Tablet) 50 mg PO Q6H PRN PRN Reason: Pain, Moderate(Pain Scale 4-6) Trazodone HCl (Trazodone Hcl 25 Mg Halftab) 25 mg PO BEDTIME [facility] Last Admin: 11/17/25 20:21 Dose: 25 mg Documented By: ADRIANA Vilazodone HCl (Vilazodone Hcl 40 Mg Tablet) 40 mg PO DAILY [facility] Vitamin D (Cholecalciferol (Vitamin D3) 25 Mcg Tablet) 25 mcg PO DAILY [facility] Labs 11/18/25 06:38 11/18/25 06:38 Labs: Laboratory Results - last 24 hr 11/17/25 11/17/25 11/17/25 11:06 11:11 12:20 MCV 91.2 MCH 24.8 L MCHC 27.2 L RDW 16.1 H Plt Count 384 MPV 8.5 L Immature Gran % (Auto) 0.8 H Neut % (Auto) 83.9 H Lymph % (Auto) 4.2 L [place] % (Auto) 7.6 Eos % (Auto) 3.1 Baso % (Auto) 0.4 Lymph # (Auto) 0.3 L [place] # (Auto) 0.6 Eos # (Auto) 0.3 Baso # (Auto) 0.0 Abs Immat Gran (auto) 0.06 H Absolute Neuts (auto) 6.7 Absolute Nucleated RBC 0.000 Nucleated RBC % (auto) 0.0 Smear Tech's Comments VERIFIED PT 16.9 H INR 1.4 H APTT 35.4 H Anion Gap 12 Estim Creat Clear Calc 60.5 Estimated GFR > 60 Random Glucose 81 Calcium 8.8 D Iron 16 L TIBC 310 % Saturation 5 L Unsat Iron Binding 294 Troponin I High Sens 9.9 Triglycerides 63 Cholesterol 144 LDL Cholesterol, Calc 57 HDL Cholesterol 75 Vitamin B12 Folate Urine Color Yellow Urine Appearance Clear Urine pH 6.5 Ur Specific [place] 1.010 Urine Protein Trace Urine Glucose (UA) Negative Urine Ketones Negative Urine Blood Small (1+) H Urine Nitrite Negative Ur Leukocyte Esterase Negative Urine RBC 0-2 Urine WBC 0-5 Ur Squamous Epith Cells 0-2 Urine Bacteria None Seen Hyaline Casts 0-2 Stool Occult Blood POSITIVE Blood Type Antibody Screen Crossmatch 11/17/25 11/17/25 12:25 13:27 MCV MCH MCHC RDW Plt Count MPV Immature Gran % (Auto) Neut % (Auto) Lymph % (Auto) [place] % (Auto) Eos % (Auto) Baso % (Auto) Lymph # (Auto) [place] # (Auto) Eos # (Auto) Baso # (Auto) Abs Immat Gran (auto) Absolute Neuts (auto) Absolute Nucleated RBC Nucleated RBC % (auto) Smear Tech's Comments PT INR APTT Anion Gap Estim Creat Clear Calc Estimated GFR Random Glucose Calcium Iron TIBC % Saturation Unsat Iron Binding Troponin I High Sens Triglycerides Cholesterol LDL Cholesterol, Calc HDL Cholesterol Vitamin B12 558 Folate 8.4 Urine Color Urine Appearance Urine pH Ur Specific [place] Urine Protein Urine Glucose (UA) Urine Ketones Urine Blood Urine Nitrite Ur Leukocyte Esterase Urine RBC Urine WBC Ur Squamous Epith Cells Urine Bacteria Hyaline Casts Stool Occult Blood Blood Type O Positive Antibody Screen NEGATIVE Crossmatch See Detail Assessment and Plan (1) COPD exacerbation: Status: Deleted Plan 70-year-old female with a past medical history of HTN, HLD, COPD, chronic respiratory failure on 6 L of home oxygen, cor pulmonale, paroxysmal AFib on Eliquis, RITA on BiPAP at night, lung cancer s/p XRT (no further rx tolerated); presented to the hospital on 11/17/25 with acute AMS and noted to have expressive aphasia and slurring of speech. Being admitted for TIA/Stroke workup. # AMS, Acute expressive aphasia poor historian at baseline CT, MRI unremarkable, less likely to be seizure Likely hypercarbic resp failure due to gradually progressive end stage COPD, Lung Ca with no further rx options Neuro consulted Will get PT/OT eval as pt states new vertigo , however imaging non-contributory # Chronic Hypercarbic resp failure - 2-3L at rest, 6L on minimal ambulation #End stage COPD #Pulm cahexia - chronic , baseline # Severe emphysematous changes - chronic #Known RITA on BiPAP nocturnally -unable to tolerate, but indicated #Known Severe emphysema-chronic #Known Multinodular pulmonary defects-likely mets outpatient palm follow-up Spoke to the pt's son -HCP this AM and evening and explained in great detail about prognostication. Pt's son appreciative of the communication. Will attempt to reach out to primary inside phone sales - Cont home meds & Bipap noninvasive ventilator use with 6L O2. Mask adjustment per [employer] - needs prior auth- recently changed mask Pt unable to tolerate mask continue Breo, Incruse- switching to formulary meds while in pt continue Ohtuvayre- Op med goal O2- 88-92% weight management lasix as needed Diamox MWF F/U Pulm OP Cont steroids #ABLA Likely UGIB , due to baseline constions vs steroid use GI consulted, not a candidate for EGD PPI daily CBC transfuse if <8 Chronic medical conditions: # Known Lung cancer status post chemo and radiation-not a candidate for either per Oncology per patient Regarding lung cancer-patient reports she had follow-up outpatient 1 month ago and she used to the her PET scan showed resolution and although she is not a candidate for further chemo radiation her baseline morbidities OP Oncology f/up I'm unable to review her records in EMR #Paroxysmal AFib on Eliquis Resume Eliquis once Hb stabilizes, hold for today #CAD-continue home meds #HTN Continue home management #Mood disorders Continue home meds #Osteoporosis Continue home meds DVT prophylaxis with SCD boots for now Guarded prognosis, goals of care discussion had with the patient-full code Disposition: Patient needs 2 more days of hosp atleast as we need PT/OT clearance, Eliquis reinitiated, ensure multiple medical comorbidities are addressed and adjusted prior to DC This note is constructed using voice recognition software. While every effort has been made to ensure accuracy, fruit and vegetable classer errors may have been included. Quality Stroke Does the patient have a stroke diagnosis?: No VTE Prior VTE?: No VTE Risk Level:: Medical - moderate - high VTE Device Contraindication: N/A - Device Ordered VTE Drug Contraindication: Treatment Not Tolerated
[2025-11-18 07:33] LABS: Hematocrit 28.7 % (37.0-47.0); Hemoglobin 8.0 g/dl (12.0-16.0); Mean Corpuscular HGB Conc 27.9 g/dl (31.0-35.0); Mean Corpuscular Hemoglobin 25.8 pg (27.0-33.0); Mean Corpuscular Volume 92.6 fL (80.0-98.0); NRBC Abs Auto 0.020 X10*3/uL (0.0-0.012); NRBC Pct Auto 0.3 /100WBC (0.0-0.2); Platelet Count 417 X10*3/uL (160-400); Red Blood Count 3.10 X10*6/uL (4.20-5.50); White Blood Count 7.3 X10*3/uL (4.8-10.8)
[2025-11-18] MEDS: Ipratropium Bromide 0.5 MG/2.5 ML SOLUTION INHALE (07:39)
[2025-11-18] MEDS: Albuterol Sulfate (0.083%) 2.5 MG/3 ML VIAL.NEB INHALE (07:39)
[2025-11-18 07:46] LABS: Blood Urea Nitrogen 11 mg/dL (9-16); Calcium 8.9 mg/dL (8.4-10.2); Creatinine Clr Calc Pharmacy 69.8; Estimated Glomerular Filt Rate > 60; Magnesium 1.9 mg/dL (1.6-2.6)
--- NOTE | 2025-11-18 07:53 | PM.GICN ---
History of Present Illness Data of Consult Service Date: 11/18/25 Requesting physician: Jose Griffin Primary Care Provider: Unknown Physician HPI Reason for consult: Anemia This is a 70-year-old female with medical history of chronic hypoxic and hypercapnic failure due to COPD, on 6 L supplement oxygen, hx of squamous cell cancer of L lung s/p SBRT and chemo 08/2025 (stopped as pt could not tolerate), paroxysmal atrial fibrillation on Eliquis, RITA, cor pulmonale, hypertension, hyperlipidemia, who is currently admitted to the hospital for rule out TIA/stroke. Gastroenterology was consulted for anemia and heme-positive stool. Patient was evaluated bedside, and reports that she was noted to be more confused at her [place] [facility] and was brought in. She has little recollection of that day itself. Does not report any abdominal pain, nausea, vomiting. Has been noticing black/darkish stools, but reports that has been the case for as long as she has been on oral iron. She also takes daily pantoprazole. She reports history of colonoscopy done a few years ago at [facility]. Recalls that additional testing was recommended, but is unable to recall what that testing was. Labs on admission showed hemoglobin of 6.8, that has improved appropriately with 1 unit of blood transfusion last evening. Chem 7 with chronic hypercapnia. Normal BUN to creatinine ratio. Iron levels continued to be low. Review of Systems Review of Systems: Yes all other systems are reviewed and are negative [facility] Past Medical History Medical History Lung cancer Pulmonary nodule 1 cm or greater in diameter Lung mass RITA (obstructive sleep apnea) Cor pulmonale Rib fractures Pulmonary nodule Tubular adenoma of colon (~2006) Osteopenia (~2012) Bronchopneumonia Chest pain Chronic respiratory alkalosis ILD (interstitial lung disease) CO2 retention Acute on chronic respiratory failure with hypoxia and hypercapnia Bipolar depression Eczema Limb swelling Insomnia Bronchitis Vasomotor rhinitis COPD (chronic obstructive pulmonary disease) Chronic respiratory failure Fall Acute metabolic encephalopathy Acute and chronic respiratory failure with hypercapnia Family History Family History Other Hypertension Surgical History Surgical History History of carpal tunnel surgery (~2000) History of ventral hernia repair (~2003) History of left inguinal hernia repair (~1995) History of tracheostomy (~2016) History of cataract surgery (~2018) History of colonoscopy Social History Social History Household Members: None Household Members Other:: Daughter, son-in-law, grandchildren Housing: [place] Housing Other:: intermediate Are you a primary care rep to a significant other at home: No Do you presently have visiting nurse or other home services: No Alcohol intake: former Patient Tobacco Use Status: Former Tobacco user Tobacco use type: Cigarette Years Smoked: 20+ years e-Cigarette/Vaping Use: Never Used Second Hand Smoke Exposure: No Advance Directives Date on File: 11/30/21 service: No Current occupational status: disabled Meds Allergies Allergy/AdvReac Type Severity Reaction Status Date / Time fluoxetine Allergy Severe Irritable Verified 11/17/25 10:41 codeine (Codeine) Allergy Intermediate RESTLESS/RA Verified 11/17/25 10:41 SH haloperidol (Haldol) Allergy Intermediate Palpitation Verified 11/17/25 10:41 s Active Medications: Current Medications Acetaminophen (Acetaminophen 325 Mg Tablet) 650 mg PO Q6H PRN PRN Reason: Pain, Mild 1-3,fever,headache Acetazolamide (Acetazolamide 250 Mg Tablet) 250 mg PO MoWeFr@0900 [facility] Albuterol Sulfate (Albuterol Sulfate 90 Mcg 8 Gm Inhaler) 2 puff INHALE Q6H PRN PRN Reason: Respiratory Distress Albuterol Sulfate (Albuterol Sulfate (0.083%) 2.5 Mg/3 Ml Vial.Neb) 2.5 mg INHALE RQID [facility] Last Admin: 11/18/25 07:39 Dose: 2.5 mg Aripiprazole (Aripiprazole 10 Mg Tablet) 10 mg PO DAILY [facility] Atorvastatin Calcium (Atorvastatin Calcium 40 Mg Tablet) 40 mg PO DAILY [facility] Calcium Carbonate (Calcium Carbonate 750 Mg Tab.Chew) 750 mg PO Q4H PRN PRN Reason: Heartburn Calcium Carbonate (Calcium Oyster Shell Elemental 500 Mg Tablet) 500 mg PO BID [facility] Last Admin: 11/17/25 20:21 Dose: 500 mg Fluticasone/Vilanterol (Fluticasone/Vilanterol 200/25 Blst.W.Dev) 1 puff INHALE RDAILY [facility] Gabapentin (Gabapentin 100 Mg Capsule) 100 mg PO BID [facility] Last Admin: 11/17/25 20:21 Dose: 100 mg Ipratropium [place] (Ipratropium [place] 0.5 Mg/2.5 Ml Solution) 0.5 mg INHALE RQID [facility] Last Admin: 11/18/25 07:39 Dose: 0.5 mg Lamotrigine (Lamotrigine 100 Mg Tablet) 200 mg PO BID [facility] Last Admin: 11/17/25 20:21 Dose: 200 mg Loratadine (Loratadine 10 Mg Tablet) 10 mg PO DAILY [facility] Lorazepam (Lorazepam 0.5 Mg Tablet) 0.25 mg PO BEDTIME [facility] Last Admin: 11/17/25 20: Dose: 0.25 mg Magnesium Hydroxide (Milk Of Magnesia 30 Ml Oral.Susp) 30 ml PO DAILY PRN PRN Reason: Constipation Melatonin (Melatonin 3 Mg Tablet) 6 mg PO BEDTIME PRN PRN Reason: Insomnia Metoprolol Succinate (Metoprolol Succinate Er 100 Mg Tab.Er.24h) 100 mg PO DAILY [facility]; Protocol Mirtazapine (Mirtazapine 7.5 Mg Tablet) 7.5 mg PO BEDTIME [facility] Last Admin: 11/17/25 20:21 Dose: 7.5 mg Montelukast Sodium (Montelukast Sodium 10 Mg Tablet) 10 mg PO BEDTIME [facility] Last Admin: 11/17/25 20:21 Dose: 10 mg Pantoprazole Sodium (Pantoprazole Sodium 40 Mg/10 Ml Vial) 40 mg IVPUSH BID@0630,1630 [facility] Last Admin: 11/18/25 06:11 Dose: 40 mg Prednisone (Prednisone 10 Mg Tablet) 10 mg PO DAILY [facility] Senna (Sennosides 8.6 Mg Tablet) 8.6 mg PO BEDTIME [facility] Last Admin: 11/17/25 20:21 Dose: 8.6 mg Sodium Chloride (0.9 % Sodium Chloride Flush 3 Ml Syringe) 3 ml IVFLUSH QSHIFT [facility] Last Admin: 11/17/25 20:25 Dose: 3 ml Theophylline (Theophylline Anhydrous Er 300 Mg Tab.Er.12h) 300 mg PO Q12H [facility] Last Admin: 11/18/25 06:11 Dose: 300 mg Tramadol HCl (Tramadol Hcl 50 Mg Tablet) 50 mg PO Q6H PRN PRN Reason: Pain, Moderate(Pain Scale 4-6) Trazodone HCl (Trazodone Hcl 25 Mg Halftab) 25 mg PO BEDTIME [facility] Last Admin: 11/17/25 20:21 Dose: 25 mg Vilazodone HCl (Vilazodone Hcl 40 Mg Tablet) 40 mg PO DAILY [facility] Vitamin D (Cholecalciferol (Vitamin D3) 25 Mcg Tablet) 25 mcg PO DAILY [facility] Home Medications ?Medication ?Instructions ?Recorded ?Confirmed ?Last Taken ?Type alendronate 70 mg tablet (Fosamax) 70 mg PO DOMINGUEZ 02/09/21 11/17/25 08/04/25 History mirtazapine 15 mg tablet 7.5 mg PO BEDTIME 09/10/21 11/17/25 08/06/25 History sennosides 8.6 mg tablet (Senokot) 8.6 mg PO BEDTIME 09/10/21 11/17/25 08/05/25 History Oxygen Home Use 04/15/23 10/22/24 Unknown History nebulizers 04/15/23 10/22/24 Unknown History pantoprazole 40 mg tablet,delayed 40 mg PO DAILY@0630 06/21/24 11/17/25 08/06/25 History release docusate sodium 100 mg capsule 100 mg PO DAILY PRN Constipation 07/27/24 11/17/25 08/19/24 History aripiprazole 10 mg tablet 10 mg PO DAILY 08/20/24 11/17/25 08/06/25 History omega 4-zoo-dwi-fish oil 1,000 mg 1 cap PO BID 08/20/24 11/17/25 08/06/25 History (120 mg-180 mg) capsule (Fish Oil) apixaban 5 mg tablet (Eliquis) 5 mg PO BID 09/26/24 11/17/25 08/06/25 History gabapentin 100 mg capsule 100 mg PO BID 01/18/25 11/17/25 08/06/25 History ferrous gluconate 324 mg (38 mg 324 mg PO DAILY 07/25/25 11/17/25 08/06/25 History iron) tablet calcium carbonate (Oyster Shell 500 mg PO BID 08/06/25 11/17/25 Unknown History Calcium) cholecalciferol (vitamin D3) 25 25 mcg PO DAILY 08/06/25 11/17/25 Unknown History mcg (1,000 unit) tablet (Vitamin D3) fluticasone furoate 200 1 ea inhalation DAILY dyspnea 08/06/25 11/17/25 08/06/25 History mcg-vilanterol 25 mcg/dose inhalation powder (Breo Ellipta) furosemide 40 mg tablet 40 mg PO DAILY 08/06/25 11/17/25 08/06/25 History lactulose 10 gram/15 mL oral 15 ml PO DAILY PRN constipation 08/06/25 11/17/25 Unknown History solution (Enulose) lamotrigine 200 mg tablet 200 mg PO BID 08/06/25 11/17/25 08/06/25 History vilazodone 40 mg tablet 40 mg PO DAILY 08/06/25 11/17/25 08/06/25 History acetaminophen 325 mg tablet 650 mg PO Q4H PRN Fever/Pain 10/23/25 11/17/25 Unknown History acetazolamide 250 mg tablet 250 mg PO MOWEFR 10/23/25 11/17/25 Unknown History aspirin 81 mg tablet 81 mg PO DAILY 10/23/25 11/17/25 Unknown History atorvastatin 40 mg tablet 40 mg PO DAILY 10/23/25 11/17/25 Unknown History bisacodyl 10 mg rectal suppository 10 mg NM DAILY PRN Constipation 10/23/25 11/17/25 Unknown History guaifenesin 600 mg tablet, 1,200 mg PO BID PRN Congestion 10/23/25 11/17/25 Unknown History extended release 12 hr loratadine 10 mg tablet (Claritin) 10 mg PO DAILY 10/23/25 11/17/25 Unknown History magnesium hydroxide 400 mg/5 mL 30 ml PO DAILY PRN Constipation 10/23/25 11/17/25 Unknown History oral suspension (Milk of Magnesia) metoprolol succinate 100 mg 100 mg PO DAILY 10/23/25 11/17/25 Unknown History tablet,extended release 24 hr prednisone 10 mg tablet 10 mg PO DAILY 10/23/25 11/17/25 Unknown History Held on 10/25/25. Instructions: Resume on 11/08/25. Resume after prolonged prednisone taper sodium phosphates 19 gram-7 118 ml NM DAILY PRN Constipation 10/23/25 11/17/25 Unknown History gram/197 mL enema (Fleet Enema Extra) tramadol 50 mg tablet 50 mg PO Q6H PRN Pain 10/23/25 11/17/25 Unknown History trazodone 50 mg tablet 25 mg PO BEDTIME Sleep 10/23/25 11/17/25 Unknown History betamethasone dipropionate 0.05 % 1 appl topical BID 11/17/25 11/17/25 Unknown History topical cream fluocinolone acetonide oil 0.01 % 5 drp otic (ears) BID PRN 11/17/25 11/17/25 Unknown History ear drops sebopsoriasis lorazepam 0.5 mg tablet (Ativan) 0.25 mg PO BEDTIME 11/17/25 11/17/25 Unknown History tacrolimus 0.1 % topical ointment 1 appl topical DAILY PRN 11/17/25 11/17/25 Unknown History sebopsoriasis Physical Exam Exam: Exam: Frail elderly female Pale appearing Anicteric NC in place with audible wheezing Abdomen soft, nontender, nondistended, no guarding Mild pitting peripheral edema Alert, oriented x2 Vital Signs: Vital Signs: Last Vital Signs Temp 97.4 F 11/18/25 07:32 Pulse 76 11/18/25 07:43 Resp 18 11/18/25 07:43 BP 118/58 L 11/18/25 07:32 Pulse Ox 97 11/18/25 07:32 O2 Del Method Nasal Cannula 11/18/25 07:32 O2 Flow Rate 5 11/18/25 07:32 FiO2 40 11/18/25 03:29 Oxygen Flow Rate 5 11/17/25 10:32 BMI result Body Mass Index 36.2 Results Labs 11/18/25 06:38 11/18/25 06:38 Labs: Short CBC 11/17/25 11/18/25 Range/Units 11:06 06:38 WBC 7.9 7.3 (4.8-10.8) X10*3/uL Hgb 6.8 L* 8.0 L (12.0-16.0) g/dl Hct 25.0 L 28.7 L (37.0-47.0) % Plt Count 384 417 H (160-400) X10*3/uL BMP 11/17/25 11/18/25 11:06 06:38 Sodium 142 Potassium 3.5 Chloride 93 L Carbon Dioxide 41 H* BUN 15 11 Creatinine 0.87 0.74 Calcium 8.8 D 8.9 Urine 11/17/25 Range/Units 11:11 Urine Color Yellow Urine Appearance Clear Urine pH 6.5 (5.0-9.0) Ur Specific [place] 1.010 (1.005-1.025) Urine Protein Trace (Neg-Trace) mg/dL Urine Glucose (UA) Negative (Negative) mg/dL Assessment and Plan (1) Iron deficiency anemia: Status: Acute (2) Fecal occult blood test positive: Status: Acute (3) Expressive aphasia: Status: Acute (4) Altered mental status: Status: Acute (5) Chronic respiratory failure: Qualifiers: Respiratory failure complication: hypoxia and hypercapnia Qualified Code(s): J96.11 - Chronic respiratory failure with hypoxia; J96.12 - Chronic respiratory failure with hypercapnia Status: Acute (6) Paroxysmal atrial fibrillation: Status: Acute (7) Cor pulmonale: Status: Acute (8) SCC of lung (small cell carcinoma): Status: Acute Plan Pt with progressive KAMI who currently came in for AMS and concern for TIA/stroke with possibly hypercarbic encephalopathy. [place] [facility] [place] [facility] hosp and pt has significant and advanced COPD with minimal pulmonary reserve. She has known SCC of left lung but could not complete treatment due to intolerance. Discussion re palliative care vs hospice were initiated by her goat driver - see notes 08/2025. Any diagnostic endoscopy at this time remains exceedingly high risk and unlikely to change overall clinical course being guided by her advanced COPD and lung cancer. Recommend IV iron supplementation - Venofer 200 mg x 4 doses. Consider 1 dose inpatient. Cont discussion re goals of care with multidisciplinary involvement including pulm and onc. Cont oral PPI for now. Thank you for allowing me to participate in her care. Please do not hesitate to reach out for any questions or concerns Procedures Date of Service Date of Service: 11/18/25
[2025-11-18 07:57] LABS: Chloride 88 mmol/L (96-108); Potassium 3.3 mmol/L (3.3-5.1); Sodium 145 mmol/L (135-145)
[2025-11-18 07:58] LABS: Anion Gap 14 (12-20)
[2025-11-18 08:03] LABS: Carbon Dioxide 46 mmol/L (22-29)
--- NOTE | 2025-11-18 09:08 | MHC.CM.PN ---
IMM was addressed with Patient. Patient's goal is to return to LTC @ [facility] via BLS; CM has initiated and will follow for dc planning. Patient uses a rollator and will require BLS transport at dc. PCP is Dr. Janice Núñez and HCP is Daughter/Heather.
[2025-11-18] MEDS: Metoprolol Succinate ER 100 MG TAB.ER.24H PO (09:30)
[2025-11-18] MEDS: Calcium Oyster Shell Elemental 500 MG TABLET PO ×2 (09:31→20:24)
[2025-11-18] MEDS: 0.9 % Sodium Chloride Flush 3 ML SYRINGE IVFLUSH ×2 (09:31→18:18)
--- NOTE | 2025-11-18 11:26 | PM.NEUROCN ---
History of Present Illness Data of Consult Service Date: 11/18/25 Primary Care Provider: Unknown Physician HPI Reason for consult: Difficulty speaking 70F PMH chronic hypoxic and hypercapnic respiratory failure due to COPD on 6 L home O2, lung CA, paroxysmal AFib on Eliquis, RITA on CPAP, obesity, mood disorder, cor pulmonale, hypertension, hyperlipidemia presented with difficulty speaking. It was initially considered as expressive aphasia. Head CT did not reveal any obvious abnormality. Her carbon dioxide level was high. She was feeling somewhat better. There was no associated weakness or seizure-like episode. Review of Systems Review of Systems: Respiratory: Difficulty breathing related to pulmonary issues Cardiovascular: No chest pain or palpitation Neurological: Difficulty speaking Psychiatric: No significant anxiety or depression PMFSH Past Medical History Medical History Lung cancer Pulmonary nodule 1 cm or greater in diameter Lung mass RITA (obstructive sleep apnea) Cor pulmonale Rib fractures Pulmonary nodule Tubular adenoma of colon (~2006) Osteopenia (~2012) Bronchopneumonia Chest pain Chronic respiratory alkalosis ILD (interstitial lung disease) CO2 retention Acute on chronic respiratory failure with hypoxia and hypercapnia Bipolar depression Eczema Limb swelling Insomnia Bronchitis Vasomotor rhinitis COPD (chronic obstructive pulmonary disease) Chronic respiratory failure Fall Acute metabolic encephalopathy Acute and chronic respiratory failure with hypercapnia Family History Family History Other Hypertension Surgical History Surgical History History of carpal tunnel surgery (~2000) History of ventral hernia repair (~2003) History of left inguinal hernia repair (~1995) History of tracheostomy (~2016) History of cataract surgery (~2018) History of colonoscopy Social History Social History Household Members: None Household Members Other:: Daughter, son-in-law, grandchildren Housing: Assisted Housing Other:: [facility] Are you a primary medical care administrator to a significant other at home: No Do you presently have visiting nurse or other home services: No Alcohol intake: former Patient Tobacco Use Status: Former Tobacco user Tobacco use type: Cigarette Years Smoked: 20+ years e-Cigarette/Vaping Use: Never Used Second Hand Smoke Exposure: No Advance Directives Date on File: 11/30/21 service: No Current occupational status: disabled Meds Allergies Allergy/AdvReac Type Severity Reaction Status Date / Time fluoxetine Allergy Severe Irritable Verified 11/17/25 10:41 codeine (Codeine) Allergy Intermediate RESTLESS/RA Verified 11/17/25 10:41 SH haloperidol (Haldol) Allergy Intermediate Palpitation Verified 11/17/25 10:41 s Active Medications: Current Medications Acetaminophen (Acetaminophen 325 Mg Tablet) 650 mg PO Q6H PRN PRN Reason: Pain, Mild 1-3,fever,headache Last Admin: 11/18/25 09:43 Dose: 650 mg Acetazolamide (Acetazolamide 250 Mg Tablet) 250 mg PO MoWeFr@0900 [facility] Last Admin: 11/18/25 09:30 Dose: 250 mg Albuterol Sulfate (Albuterol Sulfate 90 Mcg 8 Gm Inhaler) 2 puff INHALE Q6H PRN PRN Reason: Respiratory Distress Albuterol Sulfate (Albuterol Sulfate (0.083%) 2.5 Mg/3 Ml Vial.Neb) 2.5 mg INHALE RQID [facility] Last Admin: 11/18/25 07:39 Dose: 2.5 mg Aripiprazole (Aripiprazole 10 Mg Tablet) 10 mg PO DAILY [facility] Last Admin: 11/18/25 09:30 Dose: 10 mg Atorvastatin Calcium (Atorvastatin Calcium 40 Mg Tablet) 40 mg PO DAILY [facility] Last Admin: 11/18/25 09:31 Dose: 40 mg Calcium Carbonate (Calcium Carbonate 750 Mg Tab.Chew) 750 mg PO Q4H PRN PRN Reason: Heartburn Calcium Carbonate (Calcium Oyster Shell Elemental 500 Mg Tablet) 500 mg PO BID [facility] Last Admin: 11/18/25 09:31 Dose: 500 mg Fluticasone/Vilanterol (Fluticasone/Vilanterol 200/25 Blst.W.Dev) 1 puff INHALE RDAILY [facility] Gabapentin (Gabapentin 100 Mg Capsule) 100 mg PO BID [facility] Last Admin: 11/18/25 09:31 Dose: 100 mg Ipratropium [place] (Ipratropium [place] 0.5 Mg/2.5 Ml Solution) 0.5 mg INHALE RQID [facility] Last Admin: 11/18/25 07:39 Dose: 0.5 mg Lamotrigine (Lamotrigine 100 Mg Tablet) 200 mg PO BID [facility] Last Admin: 11/18/25 09:30 Dose: 200 mg Loratadine (Loratadine 10 Mg Tablet) 10 mg PO DAILY [facility] Last Admin: 11/18/25 09:30 Dose: 10 mg Lorazepam (Lorazepam 0.5 Mg Tablet) 0.25 mg PO BEDTIME [facility] Last Admin: 11/17/25 20:21 Dose: 0.25 mg Magnesium Hydroxide (Milk Of Magnesia 30 Ml Oral.Susp) 30 ml PO DAILY PRN PRN Reason: Constipation Melatonin (Melatonin 3 Mg Tablet) 6 mg PO BEDTIME PRN PRN Reason: Insomnia Metoprolol Succinate (Metoprolol Succinate Er 100 Mg Tab.Er.24h) 100 mg PO DAILY [facility]; Protocol Last Admin: 11/18/25 09:30 Dose: 100 mg Mirtazapine (Mirtazapine 7.5 Mg Tablet) 7.5 mg PO BEDTIME [facility] Last Admin: 11/17/25 20:21 Dose: 7.5 mg Montelukast Sodium (Montelukast Sodium 10 Mg Tablet) 10 mg PO BEDTIME [facility] Last Admin: 11/17/25 20:21 Dose: 10 mg Pantoprazole Sodium (Pantoprazole Sodium 40 Mg/10 Ml Vial) 40 mg IVPUSH BID@0630,1630 [facility] Last Admin: 11/18/25 06:11 Dose: 40 mg Prednisone (Prednisone 10 Mg Tablet) 10 mg PO DAILY [facility] Last Admin: 11/18/25 09:30 Dose: 10 mg Senna (Sennosides 8.6 Mg Tablet) 8.6 mg PO BEDTIME [facility] Last Admin: 11/17/25 20:21 Dose: 8.6 mg Sodium Chloride (0.9 % Sodium Chloride Flush 3 Ml Syringe) 3 ml IVFLUSH QSHIFT [facility] Last Admin: 11/18/25 09:31 Dose: 3 ml Theophylline (Theophylline Anhydrous Er 300 Mg Tab.Er.12h) 300 mg PO Q12H [facility] Last Admin: 11/18/25 06:11 Dose: 300 mg Tramadol HCl (Tramadol Hcl 50 Mg Tablet) 50 mg PO Q6H PRN PRN Reason: Pain, Moderate(Pain Scale 4-6) Trazodone HCl (Trazodone Hcl 25 Mg Halftab) 25 mg PO BEDTIME [facility] Last Admin: 11/17/25 20:21 Dose: 25 mg Vilazodone HCl (Vilazodone Hcl 40 Mg Tablet) 40 mg PO DAILY [facility] Last Admin: 11/18/25 09:31 Dose: 40 mg Vitamin D (Cholecalciferol (Vitamin D3) 25 Mcg Tablet) 25 mcg PO DAILY [facility] Last Admin: 11/18/25 09:30 Dose: 25 mcg Home Medications ?Medication ?Instructions ?Recorded ?Confirmed ?Last Taken ?Type alendronate 70 mg tablet (Fosamax) 70 mg PO DOMINGUEZ 02/09/21 11/17/25 08/04/25 History mirtazapine 15 mg tablet 7.5 mg PO BEDTIME 09/10/21 11/17/25 08/06/25 History sennosides 8.6 mg tablet (Senokot) 8.6 mg PO BEDTIME 09/10/21 11/17/25 08/05/25 History Oxygen Home Use 04/15/23 10/22/24 Unknown History nebulizers 04/15/23 10/22/24 Unknown History pantoprazole 40 mg tablet,delayed 40 mg PO DAILY@0630 06/21/24 11/17/25 08/06/25 History release docusate sodium 100 mg capsule 100 mg PO DAILY PRN Constipation 07/27/24 11/17/25 08/19/24 History aripiprazole 10 mg tablet 10 mg PO DAILY 08/20/24 11/17/25 08/06/25 History omega 2-qvc-ycu-fish oil 1,000 mg 1 cap PO BID 08/20/24 11/17/25 08/06/25 History (120 mg-180 mg) capsule (Fish Oil) apixaban 5 mg tablet (Eliquis) 5 mg PO BID 09/26/24 11/17/25 08/06/25 History gabapentin 100 mg capsule 100 mg PO BID 01/18/25 11/17/25 08/06/25 History ferrous gluconate 324 mg (38 mg 324 mg PO DAILY 07/25/25 11/17/25 08/06/25 History iron) tablet calcium carbonate (Oyster Shell 500 mg PO BID 08/06/25 11/17/25 Unknown History Calcium) cholecalciferol (vitamin D3) 25 25 mcg PO DAILY 08/06/25 11/17/25 Unknown History mcg (1,000 unit) tablet (Vitamin D3) fluticasone furoate 200 1 ea inhalation DAILY dyspnea 08/06/25 11/17/25 08/06/25 History mcg-vilanterol 25 mcg/dose inhalation powder (Breo Ellipta) furosemide 40 mg tablet 40 mg PO DAILY 08/06/25 11/17/25 08/06/25 History lactulose 10 gram/15 mL oral 15 ml PO DAILY PRN constipation 08/06/25 11/17/25 Unknown History solution (Enulose) lamotrigine 200 mg tablet 200 mg PO BID 08/06/25 11/17/25 08/06/25 History vilazodone 40 mg tablet 40 mg PO DAILY 08/06/25 11/17/25 08/06/25 History acetaminophen 325 mg tablet 650 mg PO Q4H PRN Fever/Pain 10/23/25 11/17/25 Unknown History acetazolamide 250 mg tablet 250 mg PO MOWEFR 10/23/25 11/17/25 Unknown History aspirin 81 mg tablet 81 mg PO DAILY 10/23/25 11/17/25 Unknown History atorvastatin 40 mg tablet 40 mg PO DAILY 10/23/25 11/17/25 Unknown History bisacodyl 10 mg rectal suppository 10 mg ID DAILY PRN Constipation 10/23/25 11/17/25 Unknown History guaifenesin 600 mg tablet, 1,200 mg PO BID PRN Congestion 10/23/25 11/17/25 Unknown History extended release 12 hr loratadine 10 mg tablet (Claritin) 10 mg PO DAILY 10/23/25 11/17/25 Unknown History magnesium hydroxide 400 mg/5 mL 30 ml PO DAILY PRN Constipation 10/23/25 11/17/25 Unknown History oral suspension (Milk of Magnesia) metoprolol succinate 100 mg 100 mg PO DAILY 10/23/25 11/17/25 Unknown History tablet,extended release 24 hr prednisone 10 mg tablet 10 mg PO DAILY 10/23/25 11/17/25 Unknown History Held on 10/25/25. Instructions: Resume on 11/08/25. Resume after prolonged prednisone taper sodium phosphates 19 gram-7 118 ml ID DAILY PRN Constipation 10/23/25 11/17/25 Unknown History gram/197 mL enema (Fleet Enema Extra) tramadol 50 mg tablet 50 mg PO Q6H PRN Pain 10/23/25 11/17/25 Unknown History trazodone 50 mg tablet 25 mg PO BEDTIME Sleep 10/23/25 11/17/25 Unknown History betamethasone dipropionate 0.05 % 1 appl topical BID 11/17/25 11/17/25 Unknown History topical cream fluocinolone acetonide oil 0.01 % 5 drp otic (ears) BID PRN 11/17/25 11/17/25 Unknown History ear drops sebopsoriasis lorazepam 0.5 mg tablet (Ativan) 0.25 mg PO BEDTIME 11/17/25 11/17/25 Unknown History tacrolimus 0.1 % topical ointment 1 appl topical DAILY PRN 11/17/25 11/17/25 Unknown History sebopsoriasis Physical Exam Vital Signs: Vital Signs: Last Vital Signs Temp 97.4 F 11/18/25 07:32 Pulse 76 11/18/25 07:43 Resp 18 11/18/25 07:43 BP 118/58 L 11/18/25 07:32 Pulse Ox 97 11/18/25 07:32 O2 Del Method Nasal Cannula 11/18/25 07:32 O2 Flow Rate 5 11/18/25 07:32 FiO2 40 11/18/25 03:29 Oxygen Flow Rate 5 11/17/25 10:32 BMI result Body Mass Index 36.2 Neuro: Other: Mental Status: Alert and oriented to person, place, and time. Normal attention. Normal spontaneous speech, fluency, and comprehension. Cranial Nerves: CN II: Visual [place] full to confrontation, visual acuity intact. CN III, IV, : Pupils equal, round, reactive to light and accommodation. Extraocular movements are normal. CN V: Facial sensation is normal. CN VII: Facial movements symmetrical. CN VIII: Hearing intact to bedside conversation is normal. CN IX, X: Palate elevates symmetrically. CN XI: Shoulder shrug and head turn symmetrical. CN XII: Tongue midline without atrophy or fasciculations. Motor: No obvious focal arm or leg weakness. [id number] testing revealed minimal bilateral tremor. Deep tendon reflexes were absent with flexor plantars. Extrapyramidal: Full facial expressions and blinking. No rigidity. Movements are appropriate with no tremor or abnormality. Speech: Mild scanning speech. Results Labs 11/18/25 06:38 11/18/25 06:38 Labs: Short CBC 12/21/25 12/22/25 Range/Units 11:06 06:38 WBC 7.9 7.3 (4.8-10.8) X10*3/uL Hgb 6.8 L* 8.0 L (12.0-16.0) g/dl Hct 25.0 L 28.7 L (37.0-47.0) % Plt Count 384 417 H (160-400) X10*3/uL BMP 11/17/25 11/18/25 11:06 06:38 Sodium 142 145 Potassium 3.5 3.3 Chloride 93 L 88 L Carbon Dioxide 41 H* 46 H* BUN 15 11 Creatinine 0.87 0.[address] head without contrast Comparison: CT/REG/SR - CT HEAD/BRAIN WO IV CON - 11/10/25 04:12 EST Findings: No evidence of acute territorial infarct. There is mild patchy low density in the periventricular and subcortical white matter. There is mild diffuse volume loss noted. No hydrocephalus. No hemorrhage, mass effect, mass lesion or midline shift. No abnormal extra-axial fluid. No calvarial fracture. Paranasal sinuses and mastoid air cells are clear. Impression: No acute intracranial process. Mild chronic changes as detailed. ABG ABG results: Laboratory Tests 11/10/25 02:16 VBG pH 7.43 VBG pCO2 86 VBG pO2 74 VBG HCO3 58 H VBG Base Excess 29.7 Assessment and Plan (1) Encephalopathy acute: Status: Acute 70 years old woman with change in speech or language likely due to high carbon dioxide level. Treatment of pulmonary issues is recommended. Procedures Date of Service Date of Service: 11/18/25
[2025-11-18 11:46] LABS: Prothrombin Time Whole Bld POC 16.3 sec (11.1-13.5); ~PT, ~INR - Anti Coag Clinic 1.4 (0.9-1.1)
[2025-11-18] MEDS: Albuterol/Iprat 2.5/0.5MG 3 ML AMPUL.NEB INHALE ×3 (11:57→19:14)
[2025-11-18 12:30] LABS: Glucose, Whole Blood 142 mg/dL (60-115)
[2025-11-18] MEDS: traZODone HCL 25 MG HALFTAB PO (20:24)
[2025-11-19] VITALS (15 sets, daily range): BP systolic 108–122; BP diastolic 56–61; PULSE 80–96; RESP 17–34; TEMP 36.2–37; O2SAT 83–98
[2025-11-19] MEDS: Theophylline Anhydrous ER 300 MG TAB.ER.12H PO ×2 (05:56→16:22)
[2025-11-19] MEDS: 0.9 % Sodium Chloride Flush 3 ML SYRINGE IVFLUSH ×3 (05:58→16:23)
[2025-11-19 06:16] LABS: MANUAL DIFF FLAG NO
[2025-11-19 06:17] LABS: Hematocrit 27.8 % (37.0-47.0); Hemoglobin 7.7 g/dl (12.0-16.0); Imm Gran Abs Auto 0.07 X10*3/uL (0.00-0.03); Imm Gran Pct Auto 1.2 % (0.0-0.4); Lymphocytes Absolute Auto 0.5 X10*3/uL (1.2-4.9); Mean Corpuscular HGB Conc 27.7 g/dl (31.0-35.0); Mean Corpuscular Hemoglobin 25.7 pg (27.0-33.0); Mean Corpuscular Volume 92.7 fL (80.0-98.0); NRBC Abs Auto 0.000 X10*3/uL (0.0-0.012); NRBC Pct Auto 0.0 /100WBC (0.0-0.2); Platelet Count 384 X10*3/uL (160-400); Red Blood Count 3.00 X10*6/uL (4.20-5.50); White Blood Count 5.8 X10*3/uL (4.8-10.8)
[2025-11-19 06:43] LABS: Alanine Aminotransferase < 6 U/L (0-31); Albumin Level 3.4 g/dL (3.5-5.0); Alkaline Phosphatase 62 U/L (39-117); Anion Gap 9 (12-20); Aspartate Amino Transferase 16 U/L (5-31); Blood Urea Nitrogen 12 mg/dL (9-16); Calcium 9.4 mg/dL (8.4-10.2); Carbon Dioxide 46 mmol/L (22-29); Chloride 94 mmol/L (96-108); Creatinine Clr Calc Pharmacy 58.7; Estimated Glomerular Filt Rate > 60; Magnesium 2.0 mg/dL (1.6-2.6); Potassium 3.1 mmol/L (3.3-5.1); Sodium 146 mmol/L (135-145); Total Protein 5.6 g/dL (6.5-8.0)
--- NOTE | 2025-11-19 07:17 | HO.PM.IMPN ---
Subjective Subjective Date of Service: 11/19/25 Interval History: Pulmonology consulted , ABG ordered patient slightly more hypercarbic but he will to compensate NPH normal We will check daily CBC Resumed Eliquis and aspirin today Patient is slightly more confused compared to her usual prior baseline Review of Systems Review of Systems: Yes Unobtainable due to mental condition and Unobtainable due to mental status Physical Exam Exam: Exam: Frail elderly female , pleasantly confused, repeating the questions, having difficulty understanding her comorbidities Pale appearing Anicteric NC in place with audible wheezing Abdomen soft, nontender, nondistended, no guarding Mild pitting peripheral edema Alert, oriented x 1 , poor insight Vital Signs: Vital Signs: Last Vital Signs Temp 97.8 F 11/19/25 04:00 Pulse 88 11/19/25 04:00 Resp 20 11/19/25 05:30 BP 114/61 11/19/25 04:00 Pulse Ox 94 11/19/25 04:00 O2 Del Method BiPAP 11/19/25 04:00 O2 Flow Rate 40 11/19/25 04:00 FiO2 40 11/18/25 23:50 Oxygen Flow Rate 5 11/17/25 10:32 BMI result Body Mass Index 36.2 Objective Data Active Medications Acetaminophen (Acetaminophen 325 Mg Tablet) 650 mg PO Q6H PRN PRN Reason: Pain, Mild 1-3,fever,headache Last Admin: 11/18/25 09:43 Dose: 650 mg Documented By: HAYDEE Acetazolamide (Acetazolamide 250 Mg Tablet) 250 mg PO MoWeFr@0900 [facility] Last Admin: 11/18/25 09:30 Dose: 250 mg Documented By: HAYDEE Albuterol Sulfate (Albuterol Sulfate 90 Mcg 8 Gm Inhaler) 2 puff INHALE Q6H PRN PRN Reason: Respiratory Distress Albuterol/Ipratropium (Albuterol/Iprat 2.5/0.5mg 3 Ml Ampul.Neb) 3 ml INHALE RQ4H WHILE AWAKE [facility] Last Admin: 11/18/25 19:14 Dose: 3 ml Documented By: JAMES Aripiprazole (Aripiprazole 10 Mg Tablet) 10 mg PO DAILY [facility] Last Admin: 11/18/25 09:30 Dose: 10 mg Documented By: HAYDEE Atorvastatin Calcium (Atorvastatin Calcium 40 Mg Tablet) 40 mg PO DAILY [facility] Last Admin: 11/18/25 09:31 Dose: 40 mg Documented By: HAYDEE Calcium Carbonate (Calcium Carbonate 750 Mg Tab.Chew) 750 mg PO Q4H PRN PRN Reason: Heartburn Calcium Carbonate (Calcium Oyster Shell Elemental 500 Mg Tablet) 500 mg PO BID [facility] Last Admin: 11/18/25 20:24 Dose: 500 mg Documented By: INDRA Fluticasone/Vilanterol (Fluticasone/Vilanterol 200/25 Blst.W.Dev) 1 puff INHALE RDAILY [facility] Last Admin: 11/18/25 12:00 Dose: Not Given Documented By: AUDIE Non-Admin Reason: Med Not Available Gabapentin (Gabapentin 100 Mg Capsule) 100 mg PO BID [facility] Last Admin: 11/18/25 20:24 Dose: 100 mg Documented By: INDRA Lamotrigine (Lamotrigine 100 Mg Tablet) 200 mg PO BID [facility] Last Admin: 11/18/25 20:24 Dose: 200 mg Documented By: INDRA Loratadine (Loratadine 10 Mg Tablet) 10 mg PO DAILY [facility] Last Admin: 11/18/25 09:30 Dose: 10 mg Documented By: HAYDEE Lorazepam (Lorazepam 0.5 Mg Tablet) 0.25 mg PO BEDTIME [facility] Last Admin: 11/18/25 20:25 Dose: 0.25 mg Documented By: INDRA Magnesium Hydroxide (Milk Of Magnesia 30 Ml Oral.Susp) 30 ml PO DAILY PRN PRN Reason: Constipation Melatonin (Melatonin 3 Mg Tablet) 6 mg PO BEDTIME PRN PRN Reason: Insomnia Metoprolol Succinate (Metoprolol Succinate Er 100 Mg Tab.Er.24h) 100 mg PO DAILY [facility]; Protocol Last Admin: 11/18/25 09:30 Dose: 100 mg Documented By: HAYDEE Mirtazapine (Mirtazapine 7.5 Mg Tablet) 7.5 mg PO BEDTIME [facility] Last Admin: 11/18/25 20:24 Dose: 7.5 mg Documented By: INDRA Montelukast Sodium (Montelukast Sodium 10 Mg Tablet) 10 mg PO BEDTIME [facility] Last Admin: 11/18/25 20:24 Dose: 10 mg Documented By: INDRA Pantoprazole Sodium (Pantoprazole Sodium 40 Mg/10 Ml Vial) 40 mg IVPUSH BID@6604,6541 [facility] Last Admin: 11/19/25 05:55 Dose: 40 mg Documented By: INDRA Prednisone (Prednisone 10 Mg Tablet) 10 mg PO DAILY [facility] Last Admin: 11/18/25 09:30 Dose: 10 mg Documented By: HAYDEE Senna (Sennosides 8.6 Mg Tablet) 8.6 mg PO BEDTIME [facility] Last Admin: 11/18/25 20:25 Dose: Not Given Documented By: INDRA Non-Admin Reason: Patient Refused Sodium Chloride (0.9 % Sodium Chloride Flush 3 Ml Syringe) 3 ml IVFLUSH QSHIFT [facility] Last Admin: 11/19/25 05:58 Dose: 3 ml Documented By: INDRA Theophylline (Theophylline Anhydrous Er 300 Mg Tab.Er.12h) 300 mg PO Q12H [facility] Last Admin: 11/19/25 05:56 Dose: 300 mg Documented By: INDRA Tramadol HCl (Tramadol Hcl 50 Mg Tablet) 50 mg PO Q6H PRN PRN Reason: Pain, Moderate(Pain Scale 4-6) Trazodone HCl (Trazodone Hcl 25 Mg Halftab) 25 mg PO BEDTIME [facility] Last Admin: 11/18/25 20:24 Dose: 25 mg Documented By: INDRA Vilazodone HCl (Vilazodone Hcl 40 Mg Tablet) 40 mg PO DAILY [facility] Last Admin: 11/18/25 09:31 Dose: 40 mg Documented By: HAYDEE Vitamin D (Cholecalciferol (Vitamin D3) 25 Mcg Tablet) 25 mcg PO DAILY [facility] Last Admin: 11/18/25 09:30 Dose: 25 mcg Documented By: HAYDEE Labs 11/19/25 05:59 11/19/25 05:59 Labs: Laboratory Results - last 24 hr 11/17/25 11/17/25 11/17/25 10:23 10:24 11:06 MCV MCH MCHC RDW Plt Count MPV Immature Gran % (Auto) Neut % (Auto) Lymph % (Auto) [place] % (Auto) Eos % (Auto) Baso % (Auto) Lymph # (Auto) [place] # (Auto) Eos # (Auto) Baso # (Auto) Abs Immat Gran (auto) Absolute Neuts (auto) Absolute Nucleated RBC Nucleated RBC % (auto) Smear Path Review SEE NOTE Whole Blood PT 16.3 H Whole Blood INR 1.4 H Anion Gap Estim Creat Clear Calc Estimated GFR POC Glucose 142 H Random Glucose Calcium Magnesium Total Bilirubin AST ALT Alkaline Phosphatase Total Protein Albumin 11/18/25 11/19/25 06:38 05:59 MCV 92.6 92.7 MCH 25.8 L 25.7 L MCHC 27.9 L 27.7 L RDW 15.8 15.9 Plt Count 417 H 384 MPV 9.4 8.7 L Immature Gran % (Auto) 1.2 H Neut % (Auto) 77.0 H Lymph % (Auto) 8.1 L [place] % (Auto) 10.1 Eos % (Auto) 3.3 Baso % (Auto) 0.3 Lymph # (Auto) 0.5 L [place] # (Auto) 0.6 Eos # (Auto) 0.2 Baso # (Auto) 0.0 Abs Immat Gran (auto) 0.07 H Absolute Neuts (auto) 4.5 Absolute Nucleated RBC 0.020 H 0.000 Nucleated RBC % (auto) 0.3 H 0.0 Smear Path Review Whole Blood PT Whole Blood INR Anion Gap 14 9 L Estim Creat Clear Calc 69.8 58.7 Estimated GFR > 60 > 60 POC Glucose Random Glucose 99 98 Calcium 8.9 9.4 Magnesium 1.9 2.0 Total Bilirubin 0.2 AST 16 ALT < 6 Alkaline Phosphatase 62 Total Protein 5.6 L Albumin 3.4 L Assessment and Plan (1) COPD exacerbation: Status: Deleted Plan 70-year-old female with a past medical history of HTN, HLD, COPD, chronic respiratory failure on 6 L of home oxygen, cor pulmonale, paroxysmal AFib on Eliquis, RITA on BiPAP at night, lung cancer s/p XRT (no further rx tolerated); presented to the hospital on 11/17/25 with acute AMS and noted to have expressive aphasia and slurring of speech. Being admitted for further management. # AMS, Acute expressive aphasia poor historian at baseline CT, MRI unremarkable, less likely to be seizure, neuro consulted-believe it is likely primary pulmonary etiology Likely hypercarbic resp failure due to gradually progressive end stage COPD, Lung Ca with no further rx options PT recommending short-term rehab # Chronic Hypercarbic resp failure - 2-3L at rest, 6L on minimal ambulation #End stage COPD #Pulm cahexia - chronic , baseline # Severe emphysematous changes - chronic #Known RITA on BiPAP nocturnally -unable to tolerate, but indicated #Known Severe emphysema-chronic #Known Multinodular pulmonary defects-likely mets outpatient palm follow-up Will 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 Mask adjustment per Boxing Inspector - needs prior auth- recently changed mask continue Breo, Incruse- switching to formulary meds while in pt continue Ohtuvayre- Op med goal O2- 88-92% weight management lasix as needed Diamox MWF Cont steroids #ABLA Transfused 1 unit PRBC this admission, H and H holding greater than 7 thus far. Likely UGIB , due to baseline conditions vs steroid use GI consulted, not a candidate for EGD PPI daily CBC transfuse if <7 Chronic medical conditions: # Known Lung cancer status post chemo and radiation-not a candidate for either per Oncology per patient Regarding lung cancer-patient reports she had follow-up outpatient 1 month ago and she used to the her PET scan showed resolution and although she is not a candidate for further chemo radiation her baseline morbidities OP Oncology f/up I'm unable to review her records in EMR #Paroxysmal AFib on Eliquis Resume Eliquis today #CAD-continue home meds #HTN Continue home management #Mood disorders Continue home meds #Osteoporosis Continue home meds DVT prophylaxis with SCD boots for now Guarded prognosis, goals of care discussion had with the patient-full code Disposition: Patient needs ongoing inpatient care as the patient is requiring subspecialty-pulmonology input regarding adjustment of her CPAP, introduction of BiPAP nocturnally. She appears more hypercarbic with compensation. Also we need to challenge her with resuming Eliquis and aspirin and checking CBC daily to ensure that she is tolerating it., short-term rehab is being recommended by [facility] which will also be challenging given holiday schedule This note is constructed using voice recognition software. While every effort has been made to ensure accuracy, student development specialist errors may have been included. Quality Stroke Does the patient have a stroke diagnosis?: No VTE Prior VTE?: No VTE Risk Level:: Medical - moderate - high VTE Device Contraindication: N/A - Device Ordered VTE Drug Contraindication: Treatment Not Tolerated
[2025-11-19] MEDS: Albuterol/Iprat 2.5/0.5MG 3 ML AMPUL.NEB INHALE ×4 (08:03→19:25)
[2025-11-19] MEDS: Fluticasone/Vilanterol 200/25 BLST.W.DEV 1 PUFF INHALE (08:03)
[2025-11-19] MEDS: Potassium Chloride ER 20 MEQ TAB.ER.PRT 40 MEQ PO (08:15)
[2025-11-19] MEDS: Metoprolol Succinate ER 100 MG TAB.ER.24H PO (08:16)
[2025-11-19] MEDS: Aspirin Enteric Coated 81 MG TABLET.DR PO (08:16)
[2025-11-19] MEDS: Ferrous Sulfate 324 MG TABLET.DR PO ×2 (08:17→16:22)
[2025-11-19] MEDS: Calcium Oyster Shell Elemental 500 MG TABLET PO ×2 (08:17→20:36)
--- NOTE | 2025-11-19 08:28 | PM.CNPUL ---
History of Present Illness History of Present Illness Consult date: 11/19/25 Chief complaint: Anemia Aphasia Narrative: This is an inpatient pulmonary consultation. The patient is a 70F PMH chronic hypoxic and hypercapnic respiratory failure due to COPD on 6 L home O2, lung CA, paroxysmal AFib on Eliquis, RITA on CPAP, obesity, mood disorder, cor pulmonale, hypertension, hyperlipidemia presented with expressive aphasia. Patient states symptoms began at 07:00 on day of presentation. Was trying to talk on the phone and had trouble getting the words out. She told staff at [facility] and called 911. in ED patient reports resolution of symptoms, found to have hgb of 6.8, down from baseline, patient denies bloody or dark stools, stool in ED dark and occult positive. CTH unremarkable. She was ruled out for CVA. The patient did have a blood gas demonstrating evidence of persistent chronic hypercarbic respiratory failure but trending upwards her pCO2. In addition to that the patient noted to be significantly anemic. She was transfuse 1 unit. Hemoglobin seems to be settling down although she is off her aspirin and also her Eliquis. In addition to that, the patient has been having difficult with her noninvasive ventilator as she can not get a good sealing mask. She does have a better face mask at this time and she did tolerate BiPAP 16/6 with 40% oxygen with good tolerance. Also good adherence. Therefore it is not unreasonable to continue the mask and is also not unreasonable to consider switching over to BiPAP as an outpatient. Review of Systems Constitutional: Constitutional: Denies fatigue and Reports weakness Eyes: Eyes: Denies change in vision ENT: Denies sore throat Cardiovascular: Cardiovascular: Denies chest pain, Reports dyspnea and Reports dyspnea on exertion Respiratory: Respiratory: Denies chest congestion, Reports cough, Denies pain on inspiration, Denies pain with cough, Reports dyspnea, Reports dyspnea on exertion and Reports wheezing Gastrointestinal: Gastrointestinal: Reports as per HPI, Reports abdominal pain and Reports melena Musculoskeletal: Musculoskeletal: Reports abnormal gait and Reports muscle weakness Neurologic: Reports abnormal gait, Reports memory loss and Reports weakness Psychiatric: Psychiatric: Reports depression and Reports memory loss Endocrine: Endocrine: Denies fatigue Allergic/Immunologic: Allergic/Immunologic: Reports wheezing PMFSH Past Medical History Medical History Lung cancer Pulmonary nodule 1 cm or greater in diameter Lung mass RITA (obstructive sleep apnea) Cor pulmonale Rib fractures Pulmonary nodule Tubular adenoma of colon (~2006) Osteopenia (~2012) Bronchopneumonia Chest pain Chronic respiratory alkalosis ILD (interstitial lung disease) CO2 retention Acute on chronic respiratory failure with hypoxia and hypercapnia Bipolar depression Eczema Limb swelling Insomnia Bronchitis Vasomotor rhinitis COPD (chronic obstructive pulmonary disease) Chronic respiratory failure Fall Acute metabolic encephalopathy Acute and chronic respiratory failure with hypercapnia Family History Family History Other Hypertension Surgical History Surgical History History of carpal tunnel surgery (~2000) History of ventral hernia repair (~2003) History of left inguinal hernia repair (~1995) History of tracheostomy (~2016) History of cataract surgery (~2018) History of colonoscopy Social History Social History Household Members: None Household Members Other:: Daughter, son-in-law, grandchildren Housing: Senior [facility] Housing Other:: half-way Are you a primary healthcare or medical to a significant other at home: No Do you presently have visiting nurse or other home services: No Alcohol intake: former Patient Tobacco Use Status: Former Tobacco user Tobacco use type: Cigarette Years Smoked: 20+ years e-Cigarette/Vaping Use: Never Used Second Hand Smoke Exposure: No Advance Directives Date on File: 11/30/21 service: No Current occupational status: disabled Meds Allergies Allergy/AdvReac Type Severity Reaction Status Date / Time fluoxetine Allergy Severe Irritable Verified 11/17/25 10:41 codeine (Codeine) Allergy Intermediate RESTLESS/RA Verified 11/17/25 10:41 SH haloperidol (Haldol) Allergy Intermediate Palpitation Verified 11/17/25 10:41 s Active Medications: Current Medications Acetaminophen (Acetaminophen 325 Mg Tablet) 650 mg PO Q6H PRN PRN Reason: Pain, Mild 1-3,fever,headache Last Admin: 11/18/25 09:43 Dose: 650 mg Acetazolamide (Acetazolamide 250 Mg Tablet) 250 mg PO MoWeFr@0900 [facility] Last Admin: 11/18/25 09:30 Dose: 250 mg Albuterol Sulfate (Albuterol Sulfate 90 Mcg 8 Gm Inhaler) 2 puff INHALE Q6H PRN PRN Reason: Respiratory Distress Albuterol/Ipratropium (Albuterol/Iprat 2.5/0.5mg 3 Ml Ampul.Neb) 3 ml INHALE RQ4H WHILE AWAKE [facility] Last Admin: 11/19/25 08:03 Dose: 3 ml Apixaban (Apixaban 5 Mg Tablet) 5 mg PO BID [facility] Last Admin: 11/19/25 08:16 Dose: 5 mg Aripiprazole (Aripiprazole 10 Mg Tablet) 10 mg PO DAILY [facility] Last Admin: 11/19/25 08:17 Dose: 10 mg Aspirin (Aspirin Enteric Coated 81 Mg Tablet.) 81 mg PO DAILY [facility] Last Admin: 11/19/25 08:16 Dose: 81 mg Atorvastatin Calcium (Atorvastatin Calcium 40 Mg Tablet) 40 mg PO DAILY [facility] Last Admin: 11/19/25 08:17 Dose: 40 mg Bisacodyl (Bisacodyl 10 Mg Supp.Rect) 10 mg [place] DAILY PRN PRN Reason: Constipation Calcium Carbonate (Calcium Carbonate 750 Mg Tab.Chew) 750 mg PO Q4H PRN PRN Reason: Heartburn Calcium Carbonate (Calcium Oyster Shell Elemental 500 Mg Tablet) 500 mg PO BID [facility] Last Admin: 11/19/25 08:17 Dose: 500 mg Docusate Sodium (Docusate Sodium 100 Mg Capsule) 100 mg PO DAILY PRN PRN Reason: Constipation Ferrous Sulfate (Ferrous Sulfate 324 Mg Tablet.) 324 mg PO DAILY [facility] Last Admin: 11/19/25 08:17 Dose: 324 mg Fluticasone/Vilanterol (Fluticasone/Vilanterol 200/25 Blst.W.Dev) 1 puff INHALE RDAILY [facility] Last Admin: 11/19/25 08:03 Dose: 1 puff Furosemide (Furosemide 40 Mg Tablet) 40 mg PO DAILY [facility]; Protocol Last Admin: 11/19/25 08:17 Dose: 40 mg Gabapentin (Gabapentin 100 Mg Capsule) 100 mg PO BID [facility] Last Admin: 11/19/25 08:17 Dose: 100 mg Guaifenesin (Guaifenesin La 600 Mg Tab.Er.12h) 1,200 mg PO BID PRN PRN Reason: Congestion Lamotrigine (Lamotrigine 100 Mg Tablet) 200 mg PO BID [facility] Last Admin: 11/19/25 08:17 Dose: 200 mg Loratadine (Loratadine 10 Mg Tablet) 10 mg PO DAILY [facility] Last Admin: 11/19/25 08:16 Dose: 10 mg Lorazepam (Lorazepam 0.5 Mg Tablet) 0.25 mg PO BEDTIME [facility] Last Admin: 11/18/25 20:25 Dose: 0.25 mg Magnesium Hydroxide (Milk Of Magnesia 30 Ml Oral.Susp) 30 ml PO DAILY PRN PRN Reason: Constipation Melatonin (Melatonin 3 Mg Tablet) 6 mg PO BEDTIME PRN PRN Reason: Insomnia Metoprolol Succinate (Metoprolol Succinate Er 100 Mg Tab.Er.24h) 100 mg PO DAILY [facility]; Protocol Last Admin: 11/19/25 08:16 Dose: 100 mg Mirtazapine (Mirtazapine 7.5 Mg Tablet) 7.5 mg PO BEDTIME [facility] Last Admin: 11/18/25 20:24 Dose: 7.5 mg Montelukast Sodium (Montelukast Sodium 10 Mg Tablet) 10 mg PO BEDTIME [facility] Last Admin: 11/18/25 20:24 Dose: 10 mg Non-Formulary Medication (Tacrolimus) 1 appl TOPICAL DAILY PRN PRN Reason: sebopsoriasis Pantoprazole Sodium (Pantoprazole Sodium 40 Mg/10 Ml Vial) 40 mg IVPUSH BID@0630,1630 [facility] Last Admin: 11/19/25 05:55 Dose: 40 mg Prednisone (Prednisone 10 Mg Tablet) 10 mg PO DAILY [facility] Last Admin: 11/19/25 08:17 Dose: 10 mg Senna (Sennosides 8.6 Mg Tablet) 8.6 mg PO BEDTIME [facility] Last Admin: 11/18/25 20:25 Dose: Not Given Sodium Biphosphate/Sodium Phosphate (Sodium Phosphate,Shannon-Dibasic 133 Ml Enema) 118 ml [place] DAILY PRN PRN Reason: Constipation Sodium Chloride (0.9 % Sodium Chloride Flush 3 Ml Syringe) 3 ml IVFLUSH QSHIFT [facility] Last Admin: 11/19/25 08:17 Dose: 3 ml Theophylline (Theophylline Anhydrous Er 300 Mg Tab.Er.12h) 300 mg PO Q12H [facility] Last Admin: 11/19/25 05:56 Dose: 300 mg Tramadol HCl (Tramadol Hcl 50 Mg Tablet) 50 mg PO Q6H PRN PRN Reason: Pain, Moderate(Pain Scale 4-6) Trazodone HCl (Trazodone Hcl 25 Mg Halftab) 25 mg PO BEDTIME [facility] Last Admin: 11/18/25 20:24 Dose: 25 mg Vilazodone HCl (Vilazodone Hcl 40 Mg Tablet) 40 mg PO DAILY [facility] Last Admin: 11/19/25 08:17 Dose: 40 mg Vitamin D (Cholecalciferol (Vitamin D3) 25 Mcg Tablet) 25 mcg PO DAILY [facility] Last Admin: 11/19/25 08:16 Dose: 25 mcg Home Medications ?Medication ?Instructions ?Recorded ?Confirmed ?Last Taken ?Type alendronate 70 mg tablet (Fosamax) 70 mg PO DOMINGUEZ 02/09/21 11/17/25 08/04/25 History mirtazapine 15 mg tablet 7.5 mg PO BEDTIME 09/10/21 11/17/25 08/06/25 History sennosides 8.6 mg tablet (Senokot) 8.6 mg PO BEDTIME 09/10/21 11/17/25 08/05/25 History Oxygen Home Use 04/15/23 10/22/24 Unknown History nebulizers 04/15/23 10/22/24 Unknown History pantoprazole 40 mg tablet,delayed 40 mg PO DAILY@0630 06/21/24 11/17/25 08/06/25 History release docusate sodium 100 mg capsule 100 mg PO DAILY PRN Constipation 07/27/24 11/17/25 08/19/24 History aripiprazole 10 mg tablet 10 mg PO DAILY 08/20/24 11/17/25 08/06/25 History omega 4-grg-[id number]-fish oil 1,000 mg 1 cap PO BID 08/20/24 11/17/25 08/06/25 History (120 mg-180 mg) capsule (Fish Oil) apixaban 5 mg tablet (Eliquis) 5 mg PO BID 09/26/24 11/17/25 08/06/25 History gabapentin 100 mg capsule 100 mg PO BID 01/18/25 11/17/25 08/06/25 History ferrous gluconate 324 mg (38 mg 324 mg PO DAILY 07/25/25 11/17/25 08/06/25 History iron) tablet calcium carbonate (Oyster Shell 500 mg PO BID 08/06/25 11/17/25 Unknown History Calcium) cholecalciferol (vitamin D3) 25 25 mcg PO DAILY 08/06/25 11/17/25 Unknown History mcg (1,000 unit) tablet (Vitamin D3) fluticasone furoate 200 1 ea inhalation DAILY dyspnea 08/06/25 11/17/25 08/06/25 History mcg-vilanterol 25 mcg/dose inhalation powder (Breo Ellipta) furosemide 40 mg tablet 40 mg PO DAILY 08/06/25 11/17/25 08/06/25 History lactulose 10 gram/15 mL oral 15 ml PO DAILY PRN constipation 08/06/25 11/17/25 Unknown History solution (Enulose) lamotrigine 200 mg tablet 200 mg PO BID 08/06/25 11/17/25 08/06/25 History vilazodone 40 mg tablet 40 mg PO DAILY 08/06/25 11/17/25 08/06/25 History acetaminophen 325 mg tablet 650 mg PO Q4H PRN Fever/Pain 10/23/25 11/17/25 Unknown History acetazolamide 250 mg tablet 250 mg PO MOWEFR 10/23/25 11/17/25 Unknown History aspirin 81 mg tablet 81 mg PO DAILY 10/23/25 11/17/25 Unknown History atorvastatin 40 mg tablet 40 mg PO DAILY 10/23/25 11/17/25 Unknown History bisacodyl 10 mg rectal suppository 10 mg AZ DAILY PRN Constipation 10/23/25 11/17/25 Unknown History guaifenesin 600 mg tablet, 1,200 mg PO BID PRN Congestion 10/23/25 11/17/25 Unknown History extended release 12 hr loratadine 10 mg tablet (Claritin) 10 mg PO DAILY 10/23/25 11/17/25 Unknown History magnesium hydroxide 400 mg/5 mL 30 ml PO DAILY PRN Constipation 10/23/25 11/17/25 Unknown History oral suspension (Milk of Magnesia) metoprolol succinate 100 mg 100 mg PO DAILY 10/23/25 11/17/25 Unknown History tablet,extended release 24 hr prednisone 10 mg tablet 10 mg PO DAILY 10/23/25 11/17/25 Unknown History Held on 10/25/25. Instructions: Resume on 11/08/25. Resume after prolonged prednisone taper sodium phosphates 19 gram-7 118 ml AZ DAILY PRN Constipation 10/23/25 11/17/25 Unknown History gram/197 mL enema (Fleet Enema Extra) tramadol 50 mg tablet 50 mg PO Q6H PRN Pain 10/23/25 11/17/25 Unknown History trazodone 50 mg tablet 25 mg PO BEDTIME Sleep 10/23/25 11/17/25 Unknown History betamethasone dipropionate 0.05 % 1 appl topical BID 11/17/25 11/17/25 Unknown History topical cream fluocinolone acetonide oil 0.01 % 5 drp otic (ears) BID PRN 11/17/25 11/17/25 Unknown History ear drops sebopsoriasis lorazepam 0.5 mg tablet (Ativan) 0.25 mg PO BEDTIME 11/17/25 11/17/25 Unknown History tacrolimus 0.1 % topical ointment 1 appl topical DAILY PRN 11/17/25 11/17/25 Unknown History sebopsoriasis Physical Exam Vital Signs: Vital Signs: Last Vital Signs Temp 97.2 F 11/19/25 07:25 Pulse 96 11/19/25 08:03 Resp 20 11/19/25 08:03 BP 122/58 L 11/19/25 07:25 Pulse Ox 92 11/19/25 07:25 O2 Del Method Nasal Cannula 11/19/25 07:25 O2 Flow Rate 3 11/19/25 07:25 FiO2 40 11/18/25 23:50 Oxygen Flow Rate 5 11/17/25 10:32 BMI result Body Mass Index 36.2 Results Laboratory Findings 11/19/25 05:59 11/19/25 05:59 ABG, PT/INR, D-dimer: PT/INR, D-dimer PT 16.9 SEC (11.2-13.5) H 11/17/25 11:06 INR 1.4 (0.9-1.1) H 11/17/25 11:06 Abnormal lab findings: Abnormal Labs 11/17/25 11/17/25 11/17/25 10:23 10:24 11:06 RBC 2.74 L Hgb 6.8 L* Hct 25.0 L MCH 24.8 L MCHC 27.2 L RDW 16.1 H Plt Count MPV 8.5 L Immature Gran % (Auto) 0.8 H Neut % (Auto) 83.9 H Lymph % (Auto) 4.2 L Lymph # (Auto) 0.3 L Abs Immat Gran (auto) 0.06 H Absolute Nucleated RBC Nucleated RBC % (auto) PT 16.9 H Whole Blood PT 16.3 H INR 1.4 H Whole Blood INR 1.4 H APTT 35.4 H Sodium Potassium Chloride 93 L Carbon Dioxide 41 H* Anion Gap POC Glucose 142 H Iron 16 L % Saturation 5 L Total Protein Albumin Urine Blood Crossmatch 11/17/25 11/17/25 11/18/25 11:11 12:25 06:38 RBC 3.10 L Hgb 8.0 L Hct 28.7 L MCH 25.8 L MCHC 27.9 L RDW Plt Count 417 H MPV Immature Gran % (Auto) Neut % (Auto) Lymph % (Auto) Lymph # (Auto) Abs Immat Gran (auto) Absolute Nucleated RBC 0.020 H Nucleated RBC % (auto) 0.3 H PT Whole Blood PT INR Whole Blood INR APTT Sodium Potassium Chloride 88 L Carbon Dioxide 46 H* Anion Gap POC Glucose Iron % Saturation Total Protein Albumin Urine Blood Small (1+) H Crossmatch See Detail 11/19/25 05:59 RBC 3.00 L Hgb 7.7 L Hct 27.8 L MCH 25.7 L MCHC 27.7 L RDW Plt Count MPV 8.7 L Immature Gran % (Auto) 1.2 H Neut % (Auto) 77.0 H Lymph % (Auto) 8.1 L Lymph # (Auto) 0.5 L Abs Immat Gran (auto) 0.07 H Absolute Nucleated RBC Nucleated RBC % (auto) PT Whole Blood PT INR Whole Blood INR APTT Sodium 146 H Potassium 3.1 L Chloride 94 L Carbon Dioxide 46 H* Anion Gap 9 L POC Glucose Iron % Saturation Total Protein 5.6 L Albumin 3.4 L Urine Blood Crossmatch Assessment and Plan (1) Chronic hypoxic respiratory failure: Status: Acute (2) SCC of lung (small cell carcinoma): Status: Acute (3) Fecal occult blood test positive: Status: Acute (4) Iron deficiency anemia: Status: Acute (5) Progressive anemia: Status: Acute (6) Altered mental status: Status: Acute (7) Encephalopathy acute: Status: Acute Plan The patient is presenting with acute delirium and encephalopathy. Likely secondary to significant blood loss, decreased oxygen carrying capacity and history of significant hypercarbic respiratory failure. She did receive a blood transfusion and did help. Although hemoglobin is dropping. Unfortunately she has been on Eliquis and aspirin increasing the risk of bleed. She is high risk for any procedures to further evaluate the bleed. Question bleeding scan. Seems to be tolerating the BiPAP 16/6 with the current fullface mask which is reassuring. Recommendations: Continue BiPAP ST 16/6 with a backup rate of 14. FiO2 .4 Monitor closely hemoglobin, seems to be still steadily dropping even off the aspirin Eliquis. GI following closely. Apparently on IV ppi, and IV iron Continue respiratory medicines Continue oxygen to maintain a pulse ox between 88-96% Repeat ABG I did speak to the patient about my concerned about the bleed. I do believe that this is significant amount of strain on her underlying comorbidities. Procedures Date of Service Date of Service: 11/19/25
[2025-11-19 10:39] LABS: ABG HCO3 56 mmol/L (22-26); ABG O2 % Saturation 90.0 %
[2025-11-19 10:50] LABS: Venous Blood Gas Refer to POC result
[2025-11-19 10:50] LABS: VBG HCO3 49 mmol/L (22-26); VBG O2 % Saturation 81.0 %
[2025-11-19 15:19] LABS: Venous Blood Gas Refer to POC result
[2025-11-19 15:19] LABS: VBG HCO3 55 mmol/L (22-26)
[2025-11-19 15:20] LABS: ABG Refer to POC result
[2025-11-19] MEDS: traZODone HCL 25 MG HALFTAB PO (20:36)
[2025-11-20 00:29] VITALS: PULSE 81; RESP 20; O2SAT 96
[2025-11-20 03:25] VITALS: BP 130/63; PULSE 86; RESP 16; TEMP 36.5; O2SAT 92
[2025-11-20] MEDS: Theophylline Anhydrous ER 300 MG TAB.ER.12H PO (05:38)
[2025-11-20 05:54] LABS: MANUAL DIFF FLAG NO
[2025-11-20 05:55] LABS: Hematocrit 27.2 % (37.0-47.0); Hemoglobin 7.8 g/dl (12.0-16.0); Imm Gran Abs Auto 0.04 X10*3/uL (0.00-0.03); Imm Gran Pct Auto 1.0 % (0.0-0.4); Lymphocytes Absolute Auto 0.6 X10*3/uL (1.2-4.9); Mean Corpuscular HGB Conc 28.7 g/dl (31.0-35.0); Mean Corpuscular Hemoglobin 25.8 pg (27.0-33.0); Mean Corpuscular Volume 90.1 fL (80.0-98.0); NRBC Abs Auto 0.000 X10*3/uL (0.0-0.012); NRBC Pct Auto 0.0 /100WBC (0.0-0.2); Platelet Count 405 X10*3/uL (160-400); Red Blood Count 3.02 X10*6/uL (4.20-5.50); White Blood Count 4.1 X10*3/uL (4.8-10.8)
[2025-11-20 06:22] LABS: Alanine Aminotransferase < 6 U/L (0-31); Albumin Level 3.5 g/dL (3.5-5.0); Alkaline Phosphatase 60 U/L (39-117); Anion Gap 11 (12-20); Aspartate Amino Transferase 17 U/L (5-31); Blood Urea Nitrogen 14 mg/dL (9-16); Calcium 9.2 mg/dL (8.4-10.2); Carbon Dioxide 44 mmol/L (22-29); Chloride 94 mmol/L (96-108); Creatinine Clr Calc Pharmacy 54.9; Estimated Glomerular Filt Rate 59; Magnesium 1.9 mg/dL (1.6-2.6); Potassium 3.0 mmol/L (3.3-5.1); Sodium 146 mmol/L (135-145); Total Protein 5.8 g/dL (6.5-8.0)
[2025-11-20] MEDS: Potassium Chloride Packet 20 MEQ PACKET 40 MEQ PO (06:39)
[2025-11-20 06:46] LABS: Venous Blood Gas Refer to POC result
[2025-11-20 06:49] LABS: VBG HCO3 50 mmol/L (22-26)
--- NOTE | 2025-11-20 07:17 | HO.PM.IMPN ---
Subjective Subjective Date of Service: 11/20/25 Physical Exam Vital Signs: Vital Signs: Last Vital Signs Temp 97.7 F 11/20/25 03:25 Pulse 86 11/20/25 03:25 Resp 16 11/20/25 03:25 BP 130/63 11/20/25 03:25 Pulse Ox 92 11/20/25 03:25 O2 Del Method BiPAP 11/20/25 03:25 O2 Flow Rate 3 11/19/25 20:00 FiO2 33 11/20/25 03:25 Oxygen Flow Rate 5 11/17/25 10:32 BMI result Body Mass Index 36.2 Objective Data Active Medications Acetaminophen (Acetaminophen 325 Mg Tablet) 650 mg PO Q6H PRN PRN Reason: Pain, Mild 1-3,fever,headache Last Admin: 11/19/25 20:36 Dose: 650 mg Documented By: ROBBIN Acetazolamide (Acetazolamide 250 Mg Tablet) 250 mg PO MoWeFr@0900 [facility] Last Admin: 11/18/25 09:30 Dose: 250 mg Documented By: HAYDEE Albuterol Sulfate (Albuterol Sulfate 90 Mcg 8 Gm Inhaler) 2 puff INHALE Q6H PRN PRN Reason: Respiratory Distress Albuterol/Ipratropium (Albuterol/Iprat 2.5/0.5mg 3 Ml Ampul.Neb) 3 ml INHALE RQ4H WHILE AWAKE [facility] Last Admin: 11/19/25 19:25 Dose: 3 ml Documented By: BAYRON Apixaban (Apixaban 5 Mg Tablet) 5 mg PO BID [facility] Last Admin: 11/19/25 20:36 Dose: 5 mg Documented By: ROBBIN Aripiprazole (Aripiprazole 10 Mg Tablet) 10 mg PO DAILY [facility] Last Admin: 11/19/25 08:17 Dose: 10 mg Documented By: HAYDEE Aspirin (Aspirin Enteric Coated 81 Mg Tablet.Dr) 81 mg PO DAILY [facility] Last Admin: 11/19/25 08:16 Dose: 81 mg Documented By: HAYDEE Atorvastatin Calcium (Atorvastatin Calcium 40 Mg Tablet) 40 mg PO DAILY [facility] Last Admin: 11/19/25 08:17 Dose: 40 mg Documented By: HAYDEE Bisacodyl (Bisacodyl 10 Mg Supp.Rect) 10 mg PA DAILY PRN PRN Reason: Constipation Calcium Carbonate (Calcium Carbonate 750 Mg Tab.Chew) 750 mg PO Q4H PRN PRN Reason: Heartburn Calcium Carbonate (Calcium Oyster Shell Elemental 500 Mg Tablet) 500 mg PO BID [facility] Last Admin: 11/19/25 20:36 Dose: 500 mg Documented By: ROBBIN Docusate Sodium (Docusate Sodium 100 Mg Capsule) 100 mg PO DAILY PRN PRN Reason: Constipation Last Admin: 11/19/25 16:26 Dose: 100 mg Documented By: HAYDEE Ferrous Sulfate (Ferrous Sulfate 324 Mg Tablet.Dr) 324 mg PO BIDWM [facility] Last Admin: 11/19/25 16:22 Dose: 324 mg Documented By: HAYDEE Fluticasone/Vilanterol (Fluticasone/Vilanterol 200/ Blst.W.Dev) 1 puff INHALE RDAILY [facility] Last Admin: 11/19/25 08:03 Dose: 1 puff Documented By: GITA Furosemide (Furosemide 40 Mg Tablet) 40 mg PO DAILY [facility]; Protocol Last Admin: 11/19/25 08:17 Dose: 40 mg Documented By: HAYDEE Gabapentin (Gabapentin 100 Mg Capsule) 100 mg PO BID [facility] Last Admin: 11/19/25 20:36 Dose: 100 mg Documented By: ROBBIN Guaifenesin (Guaifenesin La 600 Mg Tab.Er.12h) 1,200 mg PO BID PRN PRN Reason: Congestion Lamotrigine (Lamotrigine 100 Mg Tablet) 200 mg PO BID [facility] Last Admin: 11/19/25 20:36 Dose: 200 mg Documented By: ROBBIN Loratadine (Loratadine 10 Mg Tablet) 10 mg PO DAILY [facility] Last Admin: 11/19/25 08:16 Dose: 10 mg Documented By: HAYDEE Lorazepam (Lorazepam 0.5 Mg Tablet) 0.25 mg PO BEDTIME [facility] Last Admin: 11/19/25 20:36 Dose: 0.25 mg Documented By: ROBBIN Magnesium Hydroxide (Milk Of Magnesia 30 Ml Oral.Susp) 30 ml PO DAILY PRN PRN Reason: Constipation Melatonin (Melatonin 3 Mg Tablet) 6 mg PO BEDTIME PRN PRN Reason: Insomnia Metoprolol Succinate (Metoprolol Succinate Er 100 Mg Tab.Er.24h) 100 mg PO DAILY [facility]; Protocol Last Admin: 11/19/25 08:16 Dose: 100 mg Documented By: HAYDEE Mirtazapine (Mirtazapine 7.5 Mg Tablet) 7.5 mg PO BEDTIME [facility] Last Admin: 11/19/25 20:36 Dose: 7.5 mg Documented By: ROBBIN Montelukast Sodium (Montelukast Sodium 10 Mg Tablet) 10 mg PO BEDTIME [facility] Last Admin: 11/19/25 20:36 Dose: 10 mg Documented By: ROBBIN Non-Formulary Medication (Tacrolimus) 1 appl TOPICAL DAILY PRN PRN Reason: sebopsoriasis Pantoprazole Sodium (Pantoprazole Sodium 40 Mg/10 Ml Vial) 40 mg IVPUSH BID@0630,1630 [facility] Last Admin: 11/20/25 05:38 Dose: 40 mg Documented By: ROBBIN Potassium Chloride (Potassium Chloride Packet 20 Meq Packet) 20 meq PO TID [facility] Prednisone (Prednisone 10 Mg Tablet) 10 mg PO DAILY [facility] Last Admin: 11/19/25 08:17 Dose: 10 mg Documented By: HAYDEE Senna (Sennosides 8.6 Mg Tablet) 8.6 mg PO BEDTIME [facility] Last Admin: 11/19/25 20:36 Dose: 8.6 mg Documented By: ORBBIN Sodium Biphosphate/Sodium Phosphate (Sodium Phosphate,Coffey-Dibasic 133 Ml Enema) 118 ml PA DAILY PRN PRN Reason: Constipation Sodium Chloride (0.9 % Sodium Chloride Flush 3 Ml Syringe) 3 ml IVFLUSH QSHIFT [facility] Last Admin: 11/20/25 02:37 Dose: Not Given Documented By: ROBBIN Non-Admin Reason: Previously Administered Theophylline (Theophylline Anhydrous Er 300 Mg Tab.Er.12h) 300 mg PO Q12H [facility] Last Admin: 11/20/25 05:38 Dose: 300 mg Documented By: ROBBIN Tramadol HCl (Tramadol Hcl 50 Mg Tablet) 50 mg PO Q6H PRN PRN Reason: Pain, Moderate(Pain Scale 4-6) Trazodone HCl (Trazodone Hcl 25 Mg Halftab) 25 mg PO BEDTIME [facility] Last Admin: 11/19/25 20:36 Dose: 25 mg Documented By: ROBBIN Vilazodone HCl (Vilazodone Hcl 40 Mg Tablet) 40 mg PO DAILY [facility] Last Admin: 11/19/25 08:17 Dose: 40 mg Documented By: HAYDEE Vitamin D (Cholecalciferol (Vitamin D3) 25 Mcg Tablet) 25 mcg PO DAILY [facility] Last Admin: 11/19/25 08:16 Dose: 25 mcg Documented By: HAYDEE Labs 11/20/25 05:33 11/20/25 05:33 Labs: Laboratory Results - last 24 hr 11/19/25 11/19/25 11/19/25 10:33 10:44 15:14 MCV MCH MCHC RDW Plt Count MPV Immature Gran % (Auto) Neut % (Auto) Lymph % (Auto) Coffey % (Auto) Eos % (Auto) Baso % (Auto) Lymph # (Auto) Coffey # (Auto) Eos # (Auto) Baso # (Auto) Abs Immat Gran (auto) Absolute Neuts (auto) Absolute Nucleated RBC Nucleated RBC % (auto) O2 Saturation 90.0 ABG pH at Pt Temp 7.43 ABG pCO2 at Pt Temp 83 H* ABG pO2 at Pt Temp 64 L ABG HCO3 56 H ABG Base Excess (Actual) 27.3 VBG pH 7.41 7.46 H VBG pCO2 77 77 VBG pO2 53 37 VBG HCO3 49 H 55 H VBG O2 Saturation 81.0 TNP VBG Base Excess 21.5 27.0 Anion Gap Estim Creat Clear Calc Estimated GFR Random Glucose Calcium Magnesium Total Bilirubin AST ALT Alkaline Phosphatase Total Protein Albumin 11/20/25 11/20/25 05:33 06:45 MCV 90.1 MCH 25.8 L MCHC 28.7 L RDW 16.3 H Plt Count 405 H MPV 8.9 L Immature Gran % (Auto) 1.0 H Neut % (Auto) 67.0 Lymph % (Auto) 13.7 L Coffey % (Auto) 12.0 H Eos % (Auto) 5.6 H Baso % (Auto) 0.7 Lymph # (Auto) 0.6 L Coffey # (Auto) 0.5 Eos # (Auto) 0.2 Baso # (Auto) 0.0 Abs Immat Gran (auto) 0.04 H Absolute Neuts (auto) 2.8 Absolute Nucleated RBC 0.000 Nucleated RBC % (auto) 0.0 O2 Saturation ABG pH at Pt Temp ABG pCO2 at Pt Temp ABG pO2 at Pt Temp ABG HCO3 ABG Base Excess (Actual) VBG pH 7.44 H VBG pCO2 73 VBG pO2 48 VBG HCO3 50 H VBG O2 Saturation Not Reportable VBG Base Excess 23.2 Anion Gap 11 L Estim Creat Clear Calc 54.9 Estimated GFR 59 Random Glucose 96 Calcium 9.2 Magnesium 1.9 Total Bilirubin 0.2 AST 17 ALT < 6 Alkaline Phosphatase 60 Total Protein 5.8 L Albumin 3.5 Quality Stroke Does the patient have a stroke diagnosis?: No VTE Prior VTE?: No VTE Risk Level:: Medical - moderate - high VTE Device Contraindication: N/A - Device Ordered VTE Drug Contraindication: Treatment Not Tolerated
[2025-11-20 07:28] VITALS: BP 119/56; PULSE 81; RESP 18; TEMP 36.2; O2SAT 94
[2025-11-20] MEDS: Fluticasone/Vilanterol 200/25 BLST.W.DEV 1 PUFF INHALE (07:46)
[2025-11-20] MEDS: Albuterol/Iprat 2.5/0.5MG 3 ML AMPUL.NEB INHALE ×2 (07:46→11:16)
[2025-11-20 07:48] VITALS: PULSE 84; RESP 18; O2SAT 94
[2025-11-20] MEDS: Aspirin Enteric Coated 81 MG TABLET.DR PO (08:54)
[2025-11-20] MEDS: Calcium Oyster Shell Elemental 500 MG TABLET PO (08:55)
[2025-11-20] MEDS: Ferrous Sulfate 324 MG TABLET.DR PO (08:55)
[2025-11-20] MEDS: Metoprolol Succinate ER 100 MG TAB.ER.24H PO (08:55)
[2025-11-20] MEDS: 0.9 % Sodium Chloride Flush 3 ML SYRINGE IVFLUSH (09:10)
[2025-11-20 11:18] VITALS: PULSE 88; RESP 18; O2SAT 95
[2025-11-20 11:46] VITALS: BP 117/55; PULSE 97; RESP 18; TEMP 36.4; O2SAT 94
--- NOTE | 2025-11-20 12:06 | MHC.CM.PN ---
Per MD, Patient is medically cleared for dc today to return to LTC @ [facility](RT has confirmed that Patient has the equipment she will need at the SNF).Patient will return to [facility] today at 2PM, via [facility]. CM spoke with Daughter/HCP/Heather @ [phone] and informed her of the dc plan.
--- NOTE | 2025-11-20 13:08 | P.DS_ITS ---
DS: Providers Provider Date of admission: 11/17/25 12:44 Date of discharge: 11/20/25 Primary care physician: Janice Núñez MD Consults: 11/17/25 12:42 Consult to Gastroenterology Routine Consulting Provider: [facility] Reason for consultation: anemia 11/17/25 12:45 Consult to Neurology Routine Consulting Provider: Eliot Rivas Reason for consultation: aphasia 11/18/25 17:23 Consult to Pulmonology Routine Consulting Provider: [facility] Reason for consultation: end stage COPD , max medical therapy, C conversation help DS: Diagnosis Discharge Diagnosis (1) COPD exacerbation: Status: Deleted DS: Summary Hospital Course Hospital Course: Per H&P: Chief Complaint: expressive aphasia 70F PMH chronic hypoxic and hypercapnic respiratory failure due to COPD on 6 L home O2, lung CA, paroxysmal AFib on Eliquis, RITA on CPAP, obesity, mood disorder, cor pulmonale, hypertension, hyperlipidemia presented with expressive aphasia. Patient states symptoms began at 07:00 on day of presentation. Was trying to talk on the phone and had trouble getting the words out. She told staff at [facility] and called 911. in ED patient reports resolution of symptoms, found to have hgb of 6.8, down from baseline, patient denies bloody or dark stools, stool in ED dark and occult positive. CTH unremarkable. Hospital course: 70-year-old female with a past medical history of HTN, HLD, COPD, chronic respiratory failure on 6 L of home oxygen, cor pulmonale, paroxysmal AFib on Eliquis, RITA on BiPAP at night, lung cancer s/p XRT (no further rx tolerated); presented to the hospital on 11/17/25 with acute AMS and noted to have expressive aphasia and slurring of speech. # AMS, Acute expressive aphasia likely due to primary pulmonary etiology The patient presented with acute altered mental status, expressive aphasia, and slurred speech. She is a poor historian at baseline. CT head and MRI brain were unremarkable. Neurology was consulted and felt the presentation was less consistent with seizure or acute cerebrovascular event and more likely related to a primary pulmonary etiology. Mental status improved toward baseline with optimization of respiratory status. She continues to have some waxing waning encephalopathy in the setting of chronic hypercarbic respiratory failure. High- risk of readmission # Chronic Hypercarbic resp failure - 2-3L at rest, 6L on minimal ambulation #End stage COPD #Pulm cahexia - chronic , baseline # Severe emphysematous changes - chronic #Known RITA on BiPAP nocturnally -unable to tolerate, but indicated #Known Severe emphysema-chronic #Known Multinodular pulmonary defects-likely mets outpatient palm follow-up Cont home meds & Bipap noninvasive ventilator use with 6L O2 nocturnally (Dr. Acharya changed the settings Continue BiPAP ST 16 with a backup rate of 14. FiO2 .4) The patient has chronic hypercapnic respiratory failure requiring 2?3 L oxygen at rest and up to 6 L with minimal exertion, in the setting of end?stage COPD with severe emphysematous changes and pulmonary cachexia. Hypercarbia was felt to be the primary contributor to her presenting symptoms. She was maintained on home oxygen with a goal saturation of 88?92%. Noninvasive ventilation was emphasized, with BiPAP recommended nocturnally despite poor tolerance. was involved for switching her which will require prior authorization as an outpatient. Home inhaler regimen was continued, with formulary substitutions while inpatient, including Breo and Incruse. Ensifentrine (Ohtuvayre) was continued as an outpatient medication. She remained on chronic steroids, acetazolamide (Diamox) on a Tuesday/Tuesday/Tuesday schedule, and furosemide as needed. Follow up with her primary turntable operator, Dr. Acharya, was recommended. #ABLA Transfused 1 unit PRBC this admission, H and H holding greater than 7 thus far. Likely in the setting of severe bone marrow suppression Patient to receive IV Venofer in outpatient settings x 4 doses Chronic medical conditions: # Known Lung cancer status post chemo and radiation-not a candidate for either per Oncology per patient Regarding lung cancer-patient reports she had follow-up outpatient 1 month ago and she used to the her PET scan showed resolution and although she is not a candidate for further chemo radiation her baseline morbidities OP Oncology f/up I'm unable to review her records in EMR #Paroxysmal AFib on Eliquis Cont Eliquis #CAD-continued home meds #HTN Continued home management #Mood disorders Continued home meds #Osteoporosis Continued home meds DVT prophylaxis with SCD boots during hospitalization Guarded prognosis, goals of care discussion had with the patient and HCP - Son--full code This note is constructed using voice recognition software. While every effort has been made to ensure accuracy, him coder errors may have been included. Time spent discussing smoking cessation with patient: more than 10 minutes Status at Discharge Functional status at discharge: wheelchair bound Overall status at discharge: patient is progressing back to baseline Time Attestation Discharge Coordination Time (in mins): 75 Quality: Safe Use of Opioids Does Pt have an Active Cancer Diagnosis on the Problem List?: Yes Opioid Measure Date for [facility] Report: 10/21/25 Opioid Measure Time for [facility] Report: 13:27 Quality: Stroke Does the patient have a stroke diagnosis?: No Physical Exam Exam: Exam: Frail elderly female , pleasantly confused, repeating the questions, having difficulty understanding her comorbidities, slow speech Pale appearing Anicteric NC in place with audible wheezing Abdomen soft, nontender, nondistended, no guarding Mild pitting peripheral edema Alert, oriented x 3 , poor insight Vital Signs: Vital Signs: Last Vital Signs Temp 97.5 F 11/20/25 11:46 Pulse 97 11/20/25 11:46 Resp 18 11/20/25 11:46 BP 117/55 L 11/20/25 11:46 Pulse Ox 94 11/20/25 11:46 O2 Del Method Nasal Cannula 11/20/25 11:46 O2 Flow Rate 3 11/20/25 11:46 FiO2 33 11/20/25 03:25 Oxygen Flow Rate 5 11/17/25 10:32 BMI result Body Mass Index 36.2 DS: Data Data Completed and Pending Completed studies during hospitalization [Text1]: Procedures Assistance with Respiratory Ventilation, Less than 24 Consecutive Hours, Continuous Positive Airway Pressure (10/23/25) Labs on day of discharge: Laboratory Results - last 24 hr 11/19/25 11/20/25 11/20/25 15:14 05:33 06:45 WBC 4.1 L RBC 3.02 L Hgb 7.8 L Hct 27.2 L MCV 90.1 MCH 25.8 L MCHC 28.7 L RDW 16.3 H Plt Count 405 H MPV 8.9 L Immature Gran % (Auto) 1.0 H Neut % (Auto) 67.0 Lymph % (Auto) 13.7 L [place] % (Auto) 12.0 H Eos % (Auto) 5.6 H Baso % (Auto) 0.7 Lymph # (Auto) 0.6 L [place] # (Auto) 0.5 Eos # (Auto) 0.2 Baso # (Auto) 0.0 Abs Immat Gran (auto) 0.04 H Absolute Neuts (auto) 2.8 Absolute Nucleated RBC 0.000 Nucleated RBC % (auto) 0.0 VBG pH 7.46 H 7.44 H VBG pCO2 77 73 VBG pO2 37 48 VBG HCO3 55 H 50 H VBG O2 Saturation TNP Not Reportable VBG Base Excess 27.0 23.2 Sodium 146 H Potassium 3.0 L Chloride 94 L Carbon Dioxide 44 H* Anion Gap 11 L BUN 14 Creatinine 0.94 Estim Creat Clear Calc 54.9 Estimated GFR 59 Random Glucose 96 Calcium 9.2 Magnesium 1.9 Total Bilirubin 0.2 AST 17 ALT < 6 Alkaline Phosphatase 60 Total Protein 5.8 L Albumin 3.5 Discharge Plan Discharge Anticipated Discharge Date/Time: 11/20/25 13:34 Patient Disposition: Xfer LTC Discharge Diagnosis: COPD exacerbation as a gradual progression of her natural disease [facility] - [facility] Week Hieu Sierra [Physician, Medical] - 1 Week Caden Acharya MD [Physician, Pulmonology] - 1 Week Aimee Ayala MD [Physician, Gastroenterology] - 1 Week Oskar Montague MD [Physician, Gastroenterology] - 1 Week Discharge Medications: New potassium chloride 10 mEq capsule, extended release 20 meq PO BID 15 Days Qty: 60 0RF pantoprazole [Protonix] 40 mg tablet,delayed release (DR/EC) 40 mg PO BID 30 Days Qty: 60 0RF Continued fluticasone propionate 50 mcg/actuation spray,suspension 1 spray intranasal DAILY 30 Days Qty: 16 11RF montelukast 10 mg tablet 10 mg PO BEDTIME 90 Days Qty: 90 3RF ipratropium bromide 0.02 % solution 2.5 ml inhalation QID Qty: 300 11RF albuterol sulfate 2.5 mg /3 mL (0.083 %) solution for nebulization 2.5 mg inhalation QID Qty: 360 11RF albuterol sulfate 90 mcg/actuation HFA aerosol inhaler 2 puff INHALATION Q6H PRN (Reason: Respiratory Distress) Qty: 8.5 11RF theophylline 300 mg tablet extended release 12 hr 300 mg PO Q12H Qty: 60 8RF alendronate [Fosamax] 70 mg Tablet 70 mg PO DOMINGUEZ mirtazapine 15 mg tablet 7.5 mg PO BEDTIME docusate sodium 100 mg capsule 100 mg PO DAILY PRN (Reason: Constipation) lorazepam [Ativan] 0.5 mg Tablet 0.25 mg PO BEDTIME tacrolimus 0.1 % Ointment 1 appl TOPICAL DAILY PRN (Reason: sebopsoriasis) Rx Instructions: apply to ears betamethasone dipropionate 0.05 % Cream 1 appl TOPICAL BID Rx Instructions: apply to scalp fluocinolone acetonide oil 0.01 % Drops 5 drp OTIC (EARS) BID PRN (Reason: sebopsoriasis) Rx Instructions: apply to ears aripiprazole 10 mg tablet 10 mg PO DAILY omega [id number]-[id number]-fish oil [Fish Oil] 1,000 mg (120 mg-180 mg) Capsule 1 cap PO BID Eliquis 5 mg tablet 5 mg PO BID furosemide 40 mg tablet 40 mg PO DAILY lamotrigine 200 mg tablet 200 mg PO BID lactulose [Enulose] 10 gram/15 mL solution 15 ml PO DAILY PRN (Reason: constipation) vilazodone 40 mg tablet 40 mg PO DAILY fluticasone furoate-vilanterol [Breo Ellipta] 200-25 mcg/dose blister with device 1 ea inhalation DAILY calcium carbonate [Oyster Shell Calcium] 500 mg calcium (1,250 mg) Tablet 500 mg PO BID cholecalciferol (vitamin D3) [Vitamin D3] 25 mcg (1,000 unit) Tablet 25 mcg PO DAILY atorvastatin 40 mg tablet 40 mg PO DAILY acetaminophen 325 mg Tablet 650 mg PO Q4H PRN (Reason: Fever/Pain) prednisone 10 mg Tablet 10 mg PO DAILY trazodone 50 mg Tablet 25 mg PO BEDTIME metoprolol succinate 100 mg tablet extended release 24 hr 100 mg PO DAILY acetazolamide 250 mg tablet 250 mg PO MOWEFR tramadol 50 mg Tablet 50 mg PO Q6H PRN (Reason: Pain) magnesium hydroxide [Milk of Magnesia] 400 mg/5 mL Suspension 30 ml PO DAILY PRN (Reason: Constipation) bisacodyl 10 mg Suppository 10 mg [place] DAILY PRN (Reason: Constipation) aspirin 81 mg Tablet 81 mg PO DAILY loratadine [Claritin] 10 mg Tablet 10 mg PO DAILY Fleet Enema Extra 19-7 gram/197 mL Enema 118 ml IL DAILY PRN (Reason: Constipation) guaifenesin 600 mg Tablet Extended Release 12hr 1,200 mg PO BID PRN (Reason: Congestion) sennosides [Senokot] 8.6 mg tablet 8.6 mg PO BEDTIME Rx Instructions: Hold for loose stools gabapentin 100 mg capsule 100 mg PO BID (DME) nebulizers Misc See Rx Instructions .Route Rx Instructions: As directed (DME) Oxygen Home Use Kit See Rx Instructions .Route Rx Instructions: As directed ferrous gluconate 324 mg (38 mg iron) tablet 324 mg PO DAILY Changed pantoprazole 40 mg tablet,delayed release (DR/EC) 40 mg PO BID 30 Days Qty: 60 3RF Discharge Orders: Discharge Order (Routine); Ordered 11/20/25 Ordered By: Jerica Mesa Diet: Low salt diet Activity on Discharge: As tolerated Stand Alone Forms: Patient Portal Discharge page Print Language: Danish Care Plan Goals: Care Plan Goals and Follow Up Instructions Care Plan Goals * Optimize ventilation and oxygenation with goal SpO 88?92% while minimizing hypercarbia * Improve tolerance and adherence to nocturnal BiPAP/noninvasive ventilation * Prevent recurrent episodes of altered mental status related to hypercapnic respiratory failure * Maintain hemodynamic and hematologic stability while on anticoagulation * Prevent COPD exacerbations and respiratory infections * Preserve functional status and address deconditioning through rehabilitation * Manage symptoms and support quality of life given advanced pulmonary disease * Continue goals?of?care discussions as disease progresses Follow Up Instructions Pulmonology * Follow up with primary turntable operator Dr. Acharya as soon as possible * Address BiPAP mask adjustment and prior authorization * Reassess oxygen requirements and chronic hypercapnia management Primary Care * Follow up within 1 week after discharge * Review overall medical status, medications, and recent hospitalization * Monitor weight, volume status, and blood pressure Hematology / Labs * CBC monitoring to ensure stability of hemoglobin while on Eliquis * Seek care for melena, hematemesis, dizziness, or worsening fatigue Cardiology / Anticoagulation * Continue Eliquis as prescribed * Monitor for bleeding or palpitations Oncology * Continue outpatient follow?up as previously established Sleep Medicine / Respiratory Therapy * Reinforce nocturnal BiPAP use * Evaluate mask fit and comfort to improve adherence Rehabilitation * Participate in short?term rehab/PT/OT as recommended to improve strength and safety Patient Instructions * Use home oxygen as prescribed; do not exceed target saturations * Use BiPAP every night if tolerated * Take all medications exactly as prescribed * Avoid sedatives, alcohol, and respiratory depressants * Maintain nutrition as tolerated; small frequent meals encouraged Return Precautions Seek immediate medical attention for: * Worsening shortness of breath or increased oxygen requirement * Confusion, lethargy, or recurrence of speech difficulty * Chest pain, syncope, or palpitations * Signs of bleeding (black stools, vomiting blood, unexplained weakness) Prognosis: Guarded given advanced pulmonary disease. Continued emphasis on symptom management, adherence to respiratory support, and close outpatient follow up. Health Concerns: See above Plan of Treatment: See above Assessment: See above Patient Instructions: Emphysema (DC)
== END 2025-11-20 14:30 | DRG 191 ==
LOC: HO.ED 11:22 → HO.EDOVER 12:47 → HO.IMC 19:07
PROVIDERS: Hospitalist; Internal Medicine; Admitting Provider Internal Medicine; Emergency Provider Emergency Medicine Emergency Medical Services; PCP Family Medicine Geriatric Medicine; Visit Provider Student in an Organized Health Care Education/Training Program
DX: J43.9 Emphysema, unspecified (principal); C34.92 Malignant neoplasm of unspecified part of left bronchus or lung; D62 Acute posthemorrhagic anemia; J96.11 Chronic respiratory failure with hypoxia; J96.12 Chronic respiratory failure with hypercapnia; F05 Delirium due to known physiological condition; K92.2 Gastrointestinal hemorrhage, unspecified; I48.0 Paroxysmal atrial fibrillation; M81.0 Age-related osteoporosis without current pathological fracture; E88.A Wasting disease (syndrome) due to underlying condition; I25.10 Atherosclerotic heart disease of native coronary artery without angina pectoris; G47.33 Obstructive sleep apnea (adult) (pediatric); Z99.81 Dependence on supplemental oxygen; Z87.891 Personal history of nicotine dependence; Z79.01 Long term (current) use of anticoagulants; Z79.51 Long term (current) use of inhaled steroids; Z79.899 Other long term (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 therapy
CPT/HCPCS: 36415; 36600; 70450; 70551; 80048; 80053; 80061; 81001; 82272; 82607; 82746; 82803; 82947; 83540; 83735; 84484; 85025; 85027; 85610; 85730; 86850; 86900; 86901; 86923; 93005; 94640; 94660; 97110; 97116; 97162; 97166; 97530; 99285; J1642; J2470; P9016

== ENCOUNTER → 2025-11-17 10:24 | Outpatient (BNV) | payer OTHER, SELFPAY | PROVIDERS: Emergency Provider Emergency Medicine Emergency Medical Services; Visit Provider Radiology Vascular & Interventional Radiology | DX: R47.01 Aphasia (principal) | CPT/HCPCS: 70450 ==

== ENCOUNTER → 2025-11-17 10:24 | Outpatient (BNV) | payer OTHER, SELFPAY | PROVIDERS: Admitting Provider Internal Medicine; Emergency Provider Emergency Medicine Emergency Medical Services; Visit Provider Internal Medicine Cardiovascular Disease | DX: I49.3 Ventricular premature depolarization (principal); R00.0 Tachycardia, unspecified | CPT/HCPCS: 93010 ==

== ENCOUNTER 2025-11-17 12:44 | Outpatient (BNV) | payer OTHER, SELFPAY | END 2025-11-18 17:34 | PROVIDERS: Admitting Provider Internal Medicine; Emergency Provider Emergency Medicine Emergency Medical Services; Visit Provider Specialist | DX: R47.01 Aphasia (principal) | CPT/HCPCS: 70551 ==

== ENCOUNTER → 2025-11-17 12:44 | Outpatient (BNV) | payer OTHER, SELFPAY | PROVIDERS: Admitting Provider Internal Medicine; Emergency Provider Emergency Medicine Emergency Medical Services; Visit Provider Internal Medicine | DX: D50.9 Iron deficiency anemia, unspecified (principal); R19.5 Other fecal abnormalities; R47.01 Aphasia; R41.82 Altered mental status, unspecified; J96.11 Chronic respiratory failure with hypoxia; J96.12 Chronic respiratory failure with hypercapnia; I48.0 Paroxysmal atrial fibrillation; I27.81 Cor pulmonale (chronic); C34.90 Malignant neoplasm of unspecified part of unspecified bronchus or lung | CPT/HCPCS: 99223 ==

== ENCOUNTER → 2025-11-17 12:44 | Outpatient (BNV) | payer OTHER, SELFPAY | PROVIDERS: Admitting Provider Internal Medicine; Emergency Provider Emergency Medicine Emergency Medical Services; Visit Provider Psychiatry & Neurology Neurology | DX: G93.40 Encephalopathy, unspecified (principal) | CPT/HCPCS: 99222 ==

== ENCOUNTER → 2025-11-17 12:44 | Outpatient (BNV) | payer OTHER, SELFPAY | PROVIDERS: Admitting Provider Internal Medicine; Emergency Provider Emergency Medicine Emergency Medical Services; Visit Provider Internal Medicine | DX: J44.1 Chronic obstructive pulmonary disease with (acute) exacerbation (principal) | CPT/HCPCS: 99222; 99233; 99239 ==

== ENCOUNTER → 2025-11-17 12:44 | Outpatient (BNV) | payer OTHER, SELFPAY | PROVIDERS: Admitting Provider Internal Medicine; Emergency Provider Emergency Medicine Emergency Medical Services; PCP Family Medicine Geriatric Medicine; Visit Provider Hospitalist | DX: J96.11 Chronic respiratory failure with hypoxia (principal); C34.90 Malignant neoplasm of unspecified part of unspecified bronchus or lung; R19.5 Other fecal abnormalities; D50.9 Iron deficiency anemia, unspecified; D64.9 Anemia, unspecified; R41.82 Altered mental status, unspecified; G93.40 Encephalopathy, unspecified | CPT/HCPCS: 99223 ==

== ENCOUNTER 2025-11-22 14:03 | Inpatient (IN) | payer OTHER, SELFPAY ==
[2025-11-22] VITALS (11 sets, daily range): BP systolic 111–147; BP diastolic 60–71; PULSE 70–95; RESP 16–26; TEMP 37.1–37.3; O2SAT 88–97; BMI 33.7
--- NOTE | ~2025-11-22 | XR_ITS ---
EXAMINATION: XR CHEST 1 VIEW HISTORY: AMS COMPARISON: Comparison is made with the prior examination dated 11/10/2025. FINDINGS: A single AP portable view of the chest performed at 3:10 PM is submitted. A right-sided port is unchanged in position. Again seen are diffuse increased interstitial markings which are more prominent than on the prior study. Findings are suggestive of interstitial edema. There is no pleural effusion, pneumothorax, or pulmonary vascular congestion. The heart is normal in size. There is degenerative disc disease of the spine. XR/XR chest 1V IMPRESSION: Findings suggestive of interstitial pulmonary edema superimposed on chronic increased interstitial markings. Electronically signed by: Amandeep Murphy MD 11/22/2025 03:19 PM EST
--- NOTE | 2025-11-22 14:25 | ECG_ITS ---
Test Reason : dyspnea Blood Pressure : */* mmHG Vent. Rate : 90 BPM Atrial Rate : 90 BPM P-R Int : 144 ms QRS Dur : 80 ms QT Int : 336 ms P-R-T Axes : 49 65 56 degrees QTcB Int : 411 ms Normal sinus rhythm Low voltage QRS Borderline ECG When compared with ECG of 17-Nov-2025 10:29, Premature supraventricular complexes are no longer Present Referred By: Megha Espinosa Electronically Signed By: ROGERIO JOHNSON MD
[2025-11-22 14:49] LABS: MANUAL DIFF FLAG NO
[2025-11-22 14:51] LABS: Hematocrit 29.3 % (37.0-47.0); Hemoglobin 8.0 g/dl (12.0-16.0); Imm Gran Abs Auto 0.16 X10*3/uL (0.00-0.03); Imm Gran Pct Auto 2.7 % (0.0-0.4); Lymphocytes Absolute Auto 0.5 X10*3/uL (1.2-4.9); Mean Corpuscular HGB Conc 27.3 g/dl (31.0-35.0); Mean Corpuscular Hemoglobin 25.1 pg (27.0-33.0); Mean Corpuscular Volume 91.8 fL (80.0-98.0); NRBC Abs Auto 0.020 X10*3/uL (0.0-0.012); NRBC Pct Auto 0.3 /100WBC (0.0-0.2); Platelet Count 386 X10*3/uL (160-400); Red Blood Count 3.19 X10*6/uL (4.20-5.50); White Blood Count 5.9 X10*3/uL (4.8-10.8)
[2025-11-22 14:53] LABS: Venous Blood Gas Refer to POC result
[2025-11-22 14:54] LABS: VBG HCO3 48 mmol/L (22-26)
[2025-11-22 14:59] LABS: Ammonia 48 umol/L (13-55)
--- OUTSIDE RECORDS SUMMARY | 2025-11-22 15:07 | XMS_ITS | Encounter Summary ---
Author Organization [facility] Address [address] [place] [address] Care Team Providers Care Name Plate Stamping Machine Operator Name Role Phone Kinjal Barron [employer] PARALEGAL Primary Care Provid er Encounter Details Date Type Department Care Team (Late st Contact Info) Description 11/19/2025 Lab Requisition [facility] - Main Lab [address] [place] [address] Janice Núñez MD [address] [place], [place] [id number] Malignant neoplasm of unspecified part of left [...] Visit [facility] Hematology Oncology [address] [place] [phone] Lashanda Mcgill, DO [address] [place] [address] documented as of this encounter Visit Diagnoses Diagnosis Malignant neoplasm of unspecified part of left bronchus or lung (CMS/HCC V24, CMS/HCC V28) Chronic respiratory failure with hypercapnia (CMS/HCC V24, CMS/HCC V28) documented in this encounter Additional Health Concerns Assessment Noted Time PHQ-9 Depression Total Score: 1 07/19/20 25 5:04 PM EDT documented as of this encounter Care Teams Name Plate Stamping Machine Operator Relationship Specialty Start Date End Date Kinjal Barron FNP [address] [place] [address] PCP - General Family Medicine 03/06/25 documented as of this encounter
--- OUTSIDE RECORDS SUMMARY | 2025-11-22 15:07 | XMS_ITS | Encounter Summary ---
Author Organization [facility] Address [address] [place] [address] Care Team Providers Care Wire Frame Dipper Name Role Phone Kinjal Barron [employer]INBOW TROUT FARM MANAGER Primary Care Provid er Encounter Details Date Type Department Care Team (Late st Contact Info) Description 10/01/2025 Lab Requisition [facility] - Main Lab [address] [place] [address] Janice Núñez MD [address] [place], [place] [id number] Malignant neoplasm of unspecified part of left [...] [facility] Hematology Oncology [address] [place] [phone] Lashanda Mcgill, [address] [place] [address] documented as of this encounter Procedures Procedure [...] mmol/L LAB CHEMISTRY METHOD 10/02/2025 10:[address] [facility] Potassium 3.7 3.5 - 5.5 mmol/L LAB CHEMISTRY METHOD 10/02/2025 10:[address] [facility] Chloride 92(L) 96 - 110 mmol/L LAB CHEMISTRY METHOD 10/02/2025 10:[address] [facility] CO2 42(HH) 21 - 32 mmol/L LAB CHEMISTRY METHOD 10/02/2025 10:[address] [facility] Anion Gap 4 3 - 11 LAB CHEMISTRY METHOD 10/02/2025 10:[address] [facility] Glucose 95 70 - 100 mg/dL LAB CHEMISTRY METHOD 10/02/2025 10:[address] [facility] BUN 16 5 - 25 mg/dL LAB CHEMISTRY METHOD 10/02/2025 10:[address] [facility] Creatinine 1.12(H) 0.50 - 1.10 mg/dL LAB CHEMISTRY METHOD 10/02/2025 10:[address] [facility] eGFR 53(L) >=60 mL/min/1. 73m2 LAB CHEMISTRY METHOD 10/02/2025 10:[address] [facility] Comment:Calculation based on the Chronic Kidney Disease Epidemiology Collaboration (CKD-EPI) equation refit without adjustment for race. BUN/Creatinine Ratio 14.3 LAB CHEMISTRY METHOD 10/02/2025 10:[address] [facility] Calcium 9.2 8.5 - 10.5 mg/dL LAB CHEMISTRY METHOD 10/02/2025 10:[address] [facility] Blood Venous blood specimen / Unknown Venipuncture / Unknown 10/02/2025 7:32 AM EST 10/02/2025 8:51 AM EST us Janice Núñez MD LAB BLOOD ORDERABLES Final Resul t [facility] [address] [place] [address], [place] [phone] * (ABNORMAL) Complete blood count (10/02/2025 7:32 AM EST) WBC 7.3 4.8 - 10.8 K/mcL LAB HEMETOLOGY METHOD 10/02/2025 9:[address] [facility] RBC 3.50(L) 3.80 - 4.80 M/[facility] LAB HEMETOLOGY METHOD 10/02/2025 9:[address] [facility] Hemoglobin 9.9(L) 11.5 - 16.0 g/dL LAB HEMETOLOGY METHOD 10/02/2025 9:[address] [facility] Hematocrit 34.1(L) 35.0 - 47.0 % LAB HEMETOLOGY METHOD 10/02/2025 9:[address] [facility] MCV 98.8(H) 79.0 - 98.0 FL LAB HEMETOLOGY METHOD 10/02/2025 9:[address] [facility] MCH 28.7 27.0 - 32.0 pcg LAB HEMETOLOGY METHOD 10/02/2025 9:[address] [facility] MCHC 29.0(L) 32.0 - 37.0 g/dL LAB HEMETOLOGY METHOD 10/02/2025 9:43 AM EST [facility] RDW 16.7(H) 11.0 - 15.0 % LAB HEMETOLOGY METHOD 10/02/2025 9:[address] [facility] Platelets 443(H) 130 - 400 K/mcL LAB HEMETOLOGY METHOD 10/02/2025 9:43 AM EST [facility] MPV 9.3 7.0 - 11.0 FL LAB HEMETOLOGY METHOD 10/02/2025 9:43 AM EST [facility] NRBC 0.0 <1.0 % LAB HEMETOLOGY METHOD 10/02/2025 9:[address] [facility] NRBC Absolute 0.00 <0.10 K/mcL LAB HEMETOLOGY METHOD 10/02/2025 9:[address] [facility] Blood Venous blood specimen / Unknown Venipuncture / Unknown 10/02/2025 7:32 AM EST 10/02/2025 8:51 AM EST us Janice Núñez MD LAB BLOOD ORDERABLES Final Resul t [facility] [address] [place] [address], documented in this encounter Visit Diagnoses Diagnosis Malignant neoplasm of unspecified part of left bronchus or lung (CMS/HCC V24, CMS/HCC V28) Chronic respiratory failure with hypercapnia (CMS/HCC V24, CMS/HCC V28) documented in this encounter Additional Health Concerns Assessment Noted Time PHQ-9 Depression Total Score: 1 07/19/20 25 5:04 PM EDT documented as of this encounter Care Teams Wire Frame Dipper Relationship Specialty Start Date End Date Kinjal Barron FNP [address] [place] [phone] PCP - General Family Medicine 03/06/25 documented as of this encounter
--- OUTSIDE RECORDS SUMMARY | 2025-11-22 15:07 | XMS_ITS | Encounter Summary ---
Author Organization [facility] Address [address] [place] [address] Care Team Providers Care Costume Rental Clerk Name Role Phone Kinjal Barron SHAREPOINT ADMIN Primary Care Provid er Encounter Details Date Type Department Care Team (Late st Contact Info) Description 11/21/2025 Lab Requisition [facility] - Main Lab [address] [facility] [place] [address] Janice Núñez MD [address] [place], [place] [phone] Heart failure, unspecified (CMS/HCC V24, CMS/HCC V28); Anemia, unspecified Social History Tobacco Use Types Packs/Day [...] [facility] Hematology Oncology [address] [place] [phone] Lashanda Mcgill DO [address] [place] [address] documented as of this encounter Procedures Procedure Name Priority Date/Time Associated Diagnosis Comments COMPLETE BLOOD COUNT Routine 11/21/2025 7:38 AM EST Heart failure, unspecified (CMS/HCC V24, CMS/HCC V28) Anemia, unspecified BASIC METABOLIC PANEL Routine 11/21/2025 7:38 AM EST Heart failure, unspecified (CMS/HCC V24, CMS/HCC V28) Anemia, unspecified documented in this encounter Results * (ABNORMAL) Basic metabolic panel (11/21/2025 7:38 AM EST) Sodium 140 133 - 145 mmol/L 11/21/2025 10:29 AM [facility] Potassium 3.6 3.5 - 5.5 mmol/L 11/21/2025 10:29 AM [facility] Chloride 90(L) 96 - 110 mmol/L 11/21/2025 10:29 AM [facility] CO2 >40(HH) 21 - 32 mmol/L 11/21/2025 10:29 AM [facility] Anion Gap <10 3 - 11 11/21/2025 10:29 AM [facility] Glucose 97 70 - 100 mg/dL 11/21/2025 10:29 AM [facility] BUN 12 5 - 25 mg/dL 11/21/2025 10:29 AM [facility] Creatinine 1.00 0.50 - 1.10 mg/dL 11/21/2025 10:29 AM [facility] eGFR 60 >=60 mL/min/1. 73m2 11/21/2025 10:29 AM [facility] Comment:Calculation based on the Chronic Kidney Disease Epidemiology Collaboration (CKD-EPI) equation refit without adjustment for race. BUN/Creatinine Ratio 12.0 11/21/2025 10:29 AM [facility] Calcium 9.0 8.5 - 10.5 mg/dL 11/21/2025 10:29 AM [facility] Blood Venous blood specimen / Unknown Venipuncture / Unknown 11/21/2025 7:38 AM EST 11/21/2025 8:59 AM EST us Janice Núñez MD LAB BLOOD ORDERABLES Final Resul t [facility] [address] [place] [address], [place] [phone] * (ABNORMAL) Complete blood count (11/21/2025 7:38 AM EST) WBC 7.6 4.8 - 10.8 K/mcL LAB HEMETOLOGY METHOD 11/21/2025 9:40 AM [facility] RBC 3.40(L) 3.80 - 4.80 M/mcL LAB HEMETOLOGY METHOD 11/21/2025 9:40 AM [facility] Hemoglobin 8.5(L) 11.5 - 16.0 g/dL LAB HEMETOLOGY METHOD 11/21/2025 9:40 AM [facility] Hematocrit 30.4(L) 35.0 - 47.0 % LAB HEMETOLOGY METHOD 11/21/2025 9:40 AM [facility] MCV 89.7 79.0 - 98.0 FL LAB HEMETOLOGY METHOD 11/21/2025 9:40 AM [facility] MCH 25.1(L) 27.0 - 32.0 pcg LAB HEMETOLOGY METHOD 11/21/2025 9:40 AM [facility] MCHC 28.0(L) 32.0 - 37.0 g/dL LAB HEMETOLOGY METHOD 11/21/2025 9:40 AM [facility] RDW 16.2(H) 11.0 - 15.0 % LAB HEMETOLOGY METHOD 11/21/2025 9:40 AM [facility] Platelets 516(H) 130 - 400 K/mcL LAB HEMETOLOGY METHOD 11/21/2025 9:40 AM EST [facility] MPV 9.2 7.0 - 11.0 FL LAB HEMETOLOGY METHOD 11/21/2025 9:40 AM EST [facility] NRBC 0.0 <1.0 % LAB HEMETOLOGY METHOD 11/21/2025 9:40 AM EST [facility] NRBC Absolute 0.00 <0.10 K/mcL LAB HEMETOLOGY METHOD 11/21/2025 9:40 AM EST [facility] Blood Venous blood specimen / Unknown Venipuncture / Unknown 11/21/2025 7:38 AM EST 11/21/2025 8:59 AM EST us Janice Núñez MD LAB BLOOD ORDERABLES Final Resul t [facility] [address] [place] [address], documented in this encounter Visit Diagnoses Diagnosis Heart failure, unspecified (CMS/HCC V24, CMS/HCC V28) Heart failure, unspecified Anemia, unspecified documented in this encounter Additional Health Concerns Assessment Noted Time PHQ-9 Depression Total Score: 1 07/19/20 25 5:04 PM EDT documented as of this encounter Care Teams Costume Rental Clerk Relationship Specialty Start Date End Date Kinjal Barron FNP [address] [place] [phone] PCP - General Family Medicine 03/06/25 documented as of this encounter
--- OUTSIDE RECORDS SUMMARY | 2025-11-22 15:07 | XMS_ITS | Encounter Summary ---
Author Organization [facility] Address [address] [place] [address] Care Team Providers Care Hood Maker Name Role Phone Kinjal Barron SCALE TECHNICIAN Primary Care Provid er Encounter Details Date Type Department Care Team (Late st Contact Info) Description 10/21/2025 Lab Requisition [facility] - Main Lab [address] [facility] [address] [place] [address] Janice Núñez MD [address] [place], [place] [phone] Anemia, unspecified; Essential (primary) hypertension; Malignant neoplasm [...] AM EDT Office Visit Hematology Oncology [address] [place] [phone] Lashanda Mcgill DO [address] [place] [address] documented as of this encounter Procedures Procedure [...] >=5.4 ng/ml 10/21/2025 11:30 AM EST [facility] Blood Venous [...] City/[facility]/ZIP Co de Phone Number [facility] [address] [place] [address], [place] [phone] * Vitamin B12 (10/21/2025 8:45 AM EST) [facility] Vitamin B-12 631 211 - 911 pcg/mL 10/21/2025 11:30 AM EST [facility] Blood Venous blood specimen / Unknown Venipuncture / Unknown 10/21/2025 8:45 AM EST 10/21/2025 10:33 AM EST us Janice Núñez MD LAB BLOOD ORDERABLES Final Resul t Performing Organization Address [facility] Co de Phone Number [facility] [address] [place] [address], [place] [phone] * Ferritin (10/21/2025 8:45 AM EST) [facility] Ferritin 11 7 - 271 ng/mL 10/21/2025 11:30 AM EST [facility] Blood Venous blood specimen / Unknown Venipuncture / Unknown 10/21/2025 8:45 AM EST 10/21/2025 10:33 AM EST us Janice Núñez MD LAB BLOOD ORDERABLES Final Resul t Performing Organization Address [facility]/ZIP Co de Phone Number [facility] [address] [place] [address], [place] [phone] * (ABNORMAL) Iron and TIBC (10/21/2025 8:45 AM EST) [facility] Iron 10(L) 40 - 150 mcg/dL 10/21/2025 11:32 AM EST [facility] TIBC 392 250 - 450 mcg/dL 10/21/2025 11:32 AM [facility] Iron Saturation 3(L) 15 - 50 % 11:32 AM [facility] Blood Venous blood specimen / Unknown Venipuncture / Unknown 10/21/2025 8:45 AM EST 10/21/2025 10:33 AM EST us Janice Núñez MD LAB BLOOD ORDERABLES Final Resul t [facility] [address] [place] [address], * (ABNORMAL) Basic metabolic panel (10/21/2025 8:45 AM EST) Sodium 137 133 - 145 mmol/L 10/21/2025 11:34 AM [facility] Potassium 3.8 3.5 - 5.5 mmol/L 10/21/2025 11:34 AM [facility] Chloride 90(L) 96 - 110 mmol/L 10/21/2025 11:34 AM [facility] CO2 >40(HH) 21 - 32 mmol/L 10/21/2025 11:34 AM [facility] Anion Gap <7 3 - 11 10/21/2025 11:34 AM [facility] Glucose 120(H) 70 - 100 mg/dL 10/21/2025 11:34 AM [facility] BUN 11 5 - 25 mg/dL 10/21/2025 11:34 AM [facility] Creatinine 0.84 0.50 - 1.10 mg/dL 10/21/2025 11:34 AM [facility] eGFR 74 >=60 mL/min/1. 73m2 10/21/2025 11:34 AM [facility] Comment:Calculation based on the Chronic Kidney Disease Epidemiology Collaboration (CKD-EPI) equation refit without adjustment for race. BUN/Creatinine Ratio 13.1 10/21/2025 11:34 AM [facility] Calcium 8.3(L) 8.5 - 10.5 mg/dL 10/21/2025 11:34 AM [facility] Blood Venous blood specimen / Unknown Venipuncture / Unknown 10/21/2025 8:45 AM EST 10/21/2025 10:33 AM EST us Janice Núñez MD LAB BLOOD ORDERABLES Final Resul t [facility] [address] [place] [address], [place] [phone] * (ABNORMAL) Complete blood count (10/21/2025 8:45 AM EST) WBC 7.8 4.8 - 10.8 K/mcL LAB HEMETOLOGY METHOD 10/21/2025 10:58 AM [facility] RBC 3.10(L) 3.80 - 4.80 M/mcL LAB HEMETOLOGY METHOD 10/21/2025 10:58 AM [facility] Hemoglobin 9.4(L) 11.5 - 16.0 g/dL LAB HEMETOLOGY METHOD 10/21/2025 10:58 AM [facility] Hematocrit 30.0(L) 35.0 - 47.0 % LAB HEMETOLOGY METHOD 10/21/2025 10:58 AM [facility] MCV 97.4 79.0 - 98.0 FL LAB HEMETOLOGY METHOD 10/21/2025 10:58 AM [facility] MCH 30.5 27.0 - 32.0 pcg LAB HEMETOLOGY METHOD 10/21/2025 10:58 AM [facility] MCHC 31.3(L) 32.0 - 37.0 g/dL LAB HEMETOLOGY METHOD 10/21/2025 10:58 AM EST [facility] RDW 15.1(H) 11.0 - 15.0 % LAB HEMETOLOGY METHOD 10/21/2025 10:58 AM [facility] Platelets 446(H) 130 - 400 K/mcL LAB HEMETOLOGY METHOD 10/21/2025 10:58 AM EST [facility] MPV 9.4 7.0 - 11.0 FL LAB HEMETOLOGY METHOD 10/21/2025 10:58 AM EST [facility] NRBC 0.0 <1.0 % LAB HEMETOLOGY METHOD 10/21/2025 10:58 AM [facility] NRBC Absolute 0.00 <0.10 K/mcL LAB HEMETOLOGY METHOD 10/21/2025 10:58 AM [facility] Blood Venous blood specimen / Unknown Venipuncture / Unknown 10/21/2025 8:45 AM EST 10/21/2025 10:33 AM EST Janice Núñez MD LAB BLOOD ORDERABLES Final Resul t [facility] [address] [place] [address], documented in this encounter Visit Diagnoses Diagnosis Anemia, unspecified Essential (primary) hypertension Unspecified essential hypertension Malignant neoplasm of unspecified part of unspecified bronchus or lung (CMS/HCC V24, CMS/HCC V28) documented in this encounter Additional Health Concerns Assessment Noted Time PHQ-9 Depression Total Score: 1 07/19/20 25 5:04 PM EDT documented as of this encounter Care Teams Hood Maker Relationship Specialty Start Date End Date Kinjal Barron FNP [address] [place] [phone] PCP - General Family Medicine 03/06/25 documented as of this encounter
--- OUTSIDE RECORDS SUMMARY | 2025-11-22 15:07 | XMS_ITS | Encounter Summary ---
Author Organization [facility] Address [address] [place] [address] Care Team Providers Care Keymodule Assembly Machine Tender Name Role Phone Kinjal Barron RATTLE LEAK AND SQUEAK REPAIRER Primary Care Provid er Encounter Details Date Type Department Care Team (Late st Contact Info) Description 11/05/2025 Lab Requisition [facility] - Main Lab [address] [place] [address] Janice Núñez MD [address] [place], [place] [phone] Malignant neoplasm of unspecified part of left [...] Visit [facility] Hematology Oncology [address] [place] [phone] Lashanda Mcgill, [address] [place] [address] documented as of this encounter Procedures Procedure [...] 133 - 145 mmol/L 11/06/2025 12:07 PM [facility] Potassium 3.5 3.5 - 5.5 mmol/L 11/06/2025 12:07 PM [facility] Chloride 91(L) 96 - 110 mmol/L 11/06/2025 12:07 PM [facility] CO2 >40(HH) 21 - 32 mmol/L 11/06/2025 12:07 PM [facility] Anion Gap <8 3 - 11 11/06/2025 12:07 PM [facility] Glucose 79 70 - 100 mg/dL 11/06/2025 12:07 PM [facility] BUN 12 5 - 25 mg/dL 11/06/2025 12:07 PM [facility] Creatinine 0.97 0.50 - 1.10 mg/dL 11/06/2025 12:07 PM [facility] eGFR 63 >=60 mL/min/1. 73m2 11/06/2025 12:07 PM [facility] Comment:Calculation based on the Chronic Kidney Disease Epidemiology Collaboration (CKD-EPI) equation refit without adjustment for race. BUN/Creatinine Ratio 12.4 11/06/2025 12:07 PM [facility] Calcium 8.8 8.5 - 10.5 mg/dL 11/06/2025 12:07 PM [facility] Blood Venous blood specimen / Unknown Venipuncture / Unknown 11/06/2025 7:41 AM EST 11/06/2025 10:49 AM EST us Janice Núñez MD LAB BLOOD ORDERABLES Final Resul t [facility] [address] [place] [address], * (ABNORMAL) Complete blood count (11/06/2025 7:41 AM EST) WBC 7.5 4.8 - 10.8 K/mcL LAB HEMETOLOGY METHOD 11/06/2025 11:10 AM [facility] RBC 3.00(L) 3.80 - 4.80 M/mcL LAB HEMETOLOGY METHOD 11/06/2025 11:10 AM [facility] Hemoglobin 7.8(L) 11.5 - 16.0 g/dL LAB HEMETOLOGY METHOD 11/06/2025 11:10 AM [facility] Hematocrit 27.6(L) 35.0 - 47.0 % LAB HEMETOLOGY METHOD 11/06/2025 11:10 AM [facility] MCV 92.3 79.0 - 98.0 FL LAB HEMETOLOGY METHOD 11/06/2025 11:10 AM [facility] MCH 26.1(L) 27.0 - 32.0 pcg LAB HEMETOLOGY METHOD 11/06/2025 11:10 AM [facility] MCHC 28.3(L) 32.0 - 37.0 g/dL LAB HEMETOLOGY METHOD 11/06/2025 11:10 AM [facility] RDW 15.9(H) 11.0 - 15.0 % LAB HEMETOLOGY METHOD 11/06/2025 11:10 AM EST [facility] Platelets 465(H) 130 - 400 K/mcL LAB HEMETOLOGY METHOD 11/06/2025 11:10 AM EST [facility] MPV 9.8 7.0 - 11.0 FL LAB HEMETOLOGY METHOD 11/06/2025 11:10 AM EST [facility] NRBC 0.0 <1.0 % LAB HEMETOLOGY METHOD 11/06/2025 11:10 AM EST [facility] NRBC Absolute 0.00 <0.10 K/mcL LAB HEMETOLOGY METHOD 11/06/2025 11:10 AM [facility] Blood Venous blood specimen / Unknown Venipuncture / Unknown 11/06/2025 7:41 AM EST 11/06/2025 10:49 AM EST us Janice Núñez MD LAB BLOOD ORDERABLES Final Resul t [facility] [address] [place] [address], documented in this encounter Visit Diagnoses Diagnosis Malignant neoplasm of unspecified part of left bronchus or lung (CMS/HCC V24, CMS/HCC V28) Chronic respiratory failure with hypercapnia (CMS/HCC V24, CMS/HCC V28) documented in this encounter Additional Health Concerns Assessment Noted Time PHQ-9 Depression Total Score: 1 07/19/20 25 5:04 PM EDT documented as of this encounter Care Teams Keymodule Assembly Machine Tender Relationship Specialty Start Date End Date Kinjal Barron FNP [address] [place] [phone] PCP - General Family Medicine 03/06/25 documented as of this encounter
--- OUTSIDE RECORDS SUMMARY | 2025-11-22 15:07 | XMS_ITS | Encounter Summary ---
Author Organization [facility] Address [address] [place] [address] Care Team Providers Care University Archivist Name Role Phone Kinjal Barron RESPIRATORY CLINICIAN Primary Care Provid er Encounter Details Date Type Department Care Team (Late st Contact Info) Description 10/19/2024 Lab Requisition [facility] - Main Lab [address] [place] [address] Janice Núñez MD [address] [place], [place] [phone] Chronic obstructive pulmonary disease, unspecified (CMS/HCC V24, [...] [facility] Hematology Oncology [address] [place] [phone] Lashanda Mcgill, DO [address] [place] [address] documented as of this encounter Procedures Procedure Name Priority Date/Time Associated Diagnosis Comments COMPLETE BLOOD COUNT Routine 10/22/2024 8:17 AM EST Chronic obstructive pulmonary disease, unspecified (CMS/HCC) BASIC METABOLIC PANEL Routine 10/22/2024 8:17 AM EST Chronic obstructive pulmonary disease, unspecified ([facility]/HCC) documented in this encounter Results * (ABNORMAL) Basic metabolic panel (10/22/2024 8:17 AM EST) Sodium 138 133 - 145 mmol/L LAB CHEMISTRY METHOD 10/22/2024 4:26 PM [facility] Potassium 3.8 3.5 - 5.5 mmol/L LAB CHEMISTRY METHOD 10/22/2024 4:26 PM [facility] Chloride 94(L) 96 - 110 mmol/L LAB CHEMISTRY METHOD 10/22/2024 4:26 PM [facility] CO2 41(HH) 21 - 32 mmol/L LAB CHEMISTRY METHOD 10/22/2024 4:26 PM [facility] Anion Gap 3 3 - 11 LAB CHEMISTRY METHOD 10/22/2024 4:26 PM [facility] Glucose 82 70 - 100 mg/dL LAB CHEMISTRY METHOD 10/22/2024 4:26 PM [facility] BUN 12 5 - 25 mg/dL LAB CHEMISTRY METHOD 10/22/2024 4:26 PM [facility] Creatinine 0.94 0.50 - 1.10 mg/dL LAB CHEMISTRY METHOD 10/22/2024 4:26 PM [facility] eGFR 65 >=60 mL/min/1. 73m2 LAB CHEMISTRY METHOD 10/22/2024 4:26 PM [facility] Comment:Calculation based on the Chronic Kidney Disease Epidemiology Collaboration (CKD-EPI) equation refit without adjustment for race. BUN/Creatinine Ratio 12.8 LAB CHEMISTRY METHOD 10/22/2024 4:26 PM [facility] Calcium 9.2 8.5 - 10.5 mg/dL LAB CHEMISTRY METHOD 10/22/2024 4:26 PM [facility] Blood Venous blood specimen / Unknown Venipuncture / Unknown 10/22/2024 8:17 AM EST 10/22/2024 11:52 AM EST us Janice Núñez MD LAB BLOOD ORDERABLES Final Resul t [facility] [address] [place] [address], * (ABNORMAL) Complete blood count (10/22/2024 8:17 AM EST) WBC 5.5 4.8 - 10.8 K/mcL LAB HEMETOLOGY METHOD 10/22/2024 12:22 PM [facility] RBC 3.40(L) 3.80 - 4.80 M/mcL LAB HEMETOLOGY METHOD 10/22/2024 12:22 PM [facility] Hemoglobin 9.4(L) 11.5 - 16.0 g/dL LAB HEMETOLOGY METHOD 10/22/2024 12:22 PM [facility] Hematocrit 32.9(L) 35.0 - 47.0 % LAB HEMETOLOGY METHOD 10/22/2024 12:22 PM [facility] MCV 96.8 79.0 - 98.0 FL LAB HEMETOLOGY METHOD 10/22/2024 12:22 PM [facility] MCH 27.6 27.0 - 32.0 pcg LAB HEMETOLOGY METHOD 10/22/2024 12:22 PM [facility] MCHC 28.6(L) 32.0 - 37.0 g/dL LAB HEMETOLOGY METHOD 10/22/2024 12:22 PM [facility] RDW 15.0 11.0 - 15.0 % LAB HEMETOLOGY METHOD 10/22/2024 12:22 PM [facility] Platelets 417(H) 130 - 400 K/mcL LAB HEMETOLOGY METHOD 10/22/2024 12:22 PM [facility] MPV 9.8 7.0 - 11.0 FL LAB HEMETOLOGY METHOD 10/22/2024 12:22 PM [facility] NRBC 0.0 <1.0 % LAB HEMETOLOGY METHOD 10/22/2024 12:22 PM [facility] NRBC Absolute 0.00 <0.10 K/mcL LAB HEMETOLOGY METHOD 10/22/2024 12:22 PM [facility] Blood Venous blood specimen / Unknown Venipuncture / Unknown 10/22/2024 8:17 AM EST 10/22/2024 11:52 AM EST us Janice Núñez MD LAB BLOOD ORDERABLES Final Resul t [facility] [address] [place] [address], documented in this encounter Visit Diagnoses Diagnosis [...] documented as of this encounter Care Teams University Archivist Relationship Specialty Start Date End Date Kinjal Barron FNP [address] [place] [phone] PCP - General Family Medicine 03/06/25 documented as of this encounter
--- OUTSIDE RECORDS SUMMARY | 2025-11-22 15:07 | XMS_ITS | Encounter Summary ---
Author Organization [facility] Address [address] [place] [address] Care Team Providers Care Smoking Pipe Repairer Name Role Phone Kinjal Barron NUTRITIONAL CHEMIST Primary Care Provid er Encounter Details Date Type Department Care Team (Late st Contact Info) Description 11/02/2024 Lab Requisition [facility] - Main Lab [address] [facility] [place] [address] Janice Núñez MD [address] [place], [place] [phone] Chronic obstructive pulmonary disease, unspecified (CMS/HCC V24, [...] AM EDT Office Visit Hematology Oncology [address] [place] [phone] Lashanda Mcgill, DO [address] [place] [address] documented as of this encounter Procedures Procedure Name Priority Date/Time Associated Diagnosis Comments COMPLETE BLOOD COUNT Routine 11/02/2024 6:47 AM EST Chronic obstructive pulmonary disease, unspecified (CMS/HCC) BASIC METABOLIC PANEL Routine 11/02/2024 6:47 AM EST Chronic obstructive pulmonary disease, unspecified ([facility]/HCC) documented in this encounter Results * [...] CHEMISTRY METHOD 11/02/2024 11:22 AM EST [facility] Comment:Calculation based on the Chronic Kidney Disease Epidemiology Collaboration (CKD-EPI) equation refit without adjustment for race. BUN/Creatinine Ratio 14.0 LAB CHEMISTRY METHOD 11/02/2024 11:22 AM EST [facility] Calcium 8.9 8.5 - 10.5 mg/dL LAB CHEMISTRY METHOD 11/02/2024 11:22 AM [facility] Blood Venous blood specimen / Unknown Venipuncture / Unknown 11/02/2024 6:47 AM EST 11/02/2024 9:35 AM EST us Janice Núñez MD LAB BLOOD ORDERABLES Final Resul t [facility] [address] [place] [address], * (ABNORMAL) Complete blood count (11/02/2024 6:47 [...] HEMETOLOGY METHOD 11/02/2024 10:51 AM EST [facility] MCHC 29.0(L) 32.0 - 37.0 [...] 11/02/2024 10:51 AM [facility] NRBC Absolute 0.00 <0.10 K/mcL LAB HEMETOLOGY METHOD 11/02/2024 10:51 AM [facility] Blood Venous blood specimen / Unknown Venipuncture / Unknown 11/02/2024 6:47 AM EST 11/02/2024 9:35 AM EST us Janice Núñez MD LAB BLOOD ORDERABLES Final Resul t [facility] [address] [place] [address], documented in this encounter Visit Diagnoses Diagnosis [...] documented as of this encounter Care Teams Smoking Pipe Repairer Relationship Specialty Start Date End Date Kinjal Barron FNP [address] [place] [phone] PCP - General Family Medicine 03/06/25 documented as of this encounter
--- OUTSIDE RECORDS SUMMARY | 2025-11-22 15:07 | XMS_ITS | Encounter Summary ---
Author Organization [facility] Address [address] [place] [address] Care Team Providers Care Selling Underwriter Name Role Phone Kinjal Barron FROG CATCHER Primary Care Provid er Encounter Details Date Type Department Care Team (Late st Contact Info) Description 12/11/2024 Lab Requisition [facility] - Main Lab [address] [place] [address] Glenroy Goff MD [address] [facility] [address] [place], [phone] Chronic obstructive pulmonary disease, unspecified (CMS/HCC [...] 02/18/2026 10:30 AM EDT Office Visit [facility] Hematology Oncology [address] [place] [phone] Lashanda Mcgill, DO [address] [place] [address] documented as of this encounter Procedures Procedure Name Priority Date/Time Associated Diagnosis Comments COMPLETE BLOOD COUNT Routine 12/11/2024 6:30 AM EST Chronic obstructive pulmonary disease, unspecified (CMS/HCC) BASIC METABOLIC PANEL Routine 12/11/2024 6:30 AM EST Chronic obstructive pulmonary disease, unspecified ([facility]/HCC) documented in this encounter Results * (ABNORMAL) [...] 12/11/2024 11:11 AM [facility] Creatinine 0.83 0.50 - 1.10 mg/dL LAB CHEMISTRY METHOD 12/11/2024 11:11 AM EST [facility] eGFR 76 >=60 mL/min/1. 73m2 [...] Resul t [facility] [address] [place] [address], * (ABNORMAL) Complete blood count (12/11/2024 6:30 [...] LAB HEMETOLOGY METHOD 12/11/2024 11:11 AM EST [facility] MCHC 27.9(L) 32.0 - 37.0 g/dL LAB HEMETOLOGY METHOD 12/11/2024 11:11 AM [facility] RDW 15.7(H) 11.0 - 15.0 % LAB HEMETOLOGY METHOD 12/11/2024 11:11 AM EST [facility] Platelets 399 130 - 400 K/mcL LAB HEMETOLOGY METHOD 12/11/2024 11:11 AM [facility] MPV 10.0 7.0 - 11.0 FL LAB HEMETOLOGY METHOD 12/11/2024 11:11 AM [facility] NRBC 0.0 [...] Resul t [facility] [address] [place] [address], documented in this encounter Visit Diagnoses Diagnosis [...] documented as of this encounter Care Teams Selling Underwriter Relationship Specialty Start Date End Date Kinjal Barron FNP [address] [place] [address] PCP - General Family Medicine 03/06/25 documented as of this encounter
--- OUTSIDE RECORDS SUMMARY | 2025-11-22 15:07 | XMS_ITS | Encounter Summary ---
Author Organization [facility] Address [address] [place] [address] Care Team Providers Care Food And Beverage Analyst Name Role Phone Kinjal Barron PNP Primary Care Provid er Encounter Details Date Type Department Care Team (Late st Contact Info) Description 10/16/2025 Lab Requisition [facility] - Main Lab [address] [place] [address] Janice Núñez MD [address] [place], [place] [phone] Dysuria Social History Tobacco Use Types Packs/Day [...] [facility] Hematology Oncology [address] [place] [phone] Lashanda Mcgill, DO [address] [place] [address] documented as of this encounter Procedures Procedure Name Priority Date/Time Associated Diagnosis Comments URINALYSIS WITH REFLEX MICROSCOPIC Routine 10/16/2025 12:00 AM EST Dysuria URINALYSIS WITH REFLEX MICROSCOPIC Routine 10/16/2025 12:00 AM EST Dysuria CULTURE URINE Routine 10/16/2025 12:00 AM EST Dysuria documented in this encounter Results * (ABNORMAL) Urinalysis with reflex microscopic (10/16/2025 12:00 AM EST) Specific Drain Urine 1.015 1.003 - 1.030 LAB URINALYSIS [...] - 4 /HPF 10/16/2025 11:46 AM EST [facility] Squamous Epithelial, Urine 2 0 - 60 /LPF 10/16/2025 11:46 AM EST [facility] Non-Squamous Epithelial, Urine 2-5 Transitional epithelial cells. /LPF 10/16/2025 11:46 AM EST [facility] Bacteria, Urine Moderate(A) Negative /HPF 10/16/2025 11:46 AM EST [facility] Urine Urine specimen from urethra / Unknown Non-blood Collection / Unknown 10/16/2025 10/16/2025 10:00 AM EST Janice Núñez MD LAB URINE ORDERABLES Final Resul t [facility] [address] [place] [address], * (ABNORMAL) Culture urine (10/16/2025 12:00 AM EST) Culture, Urine 50,000-100,000 CFU/mL Klebsiella aerogenes(A) SERGIO 10/18/2025 10:36 AM EST [facility] Comment: This is an edited [...] MICROBIOLOGY - GENERAL ORDER KANE Final Result [facility] LAB [address] [place] [address], documented in this encounter Visit Diagnoses Diagnosis Dysuria documented in this encounter Additional Health Concerns Assessment Noted Time PHQ-9 Depression Total Score: 1 07/19/20 25 5:04 PM EDT documented as of this encounter Care Teams Food And Beverage Analyst Relationship Specialty Start Date End Date Kinjal Barron FNP [address] [place] [phone] PCP - General Family Medicine 03/06/25 documented as of this encounter
--- OUTSIDE RECORDS SUMMARY | 2025-11-22 15:07 | XMS_ITS | Encounter Summary ---
Author Organization [facility] Address [address] [place] [address] Care Team Providers Care Mental Health Aide Name Role Phone Kinjal Barron SUBSTANCE ABUSE THERAPIST Primary Care Provid er Encounter Details Date Type Department Care Team (Late st Contact Info) Description 11/09/2024 Lab Requisition [facility] - Main Lab [address] [place] [address] Janice Núñez MD [address] [place], [place] [phone] Chronic obstructive pulmonary disease, unspecified (CMS/HCC V24, [...] Description 02/18/2026 10:30 AM EDT Office Visit [facility] Hematology Oncology [address] [place] [phone] Lashanda Mcgill, DO [address] [place] [address] documented as of this encounter Procedures Procedure [...] mmol/L LAB CHEMISTRY METHOD 11/12/2024 4:30 PM [facility] Potassium 4.1 3.5 - 5.5 mmol/L LAB CHEMISTRY METHOD 11/12/2024 4:30 PM [facility] Chloride 92(L) 96 - 110 mmol/L LAB CHEMISTRY METHOD 11/12/2024 4:30 PM [facility] CO2 43(HH) 21 - 32 mmol/L LAB CHEMISTRY METHOD 11/12/2024 4:30 PM [facility] Anion Gap 6 3 - 11 LAB CHEMISTRY METHOD 11/12/2024 4:30 PM [facility] Glucose 90 70 - 100 mg/dL LAB CHEMISTRY METHOD 11/12/2024 4:30 PM [facility] BUN 11 5 - 25 mg/dL LAB CHEMISTRY METHOD 11/12/2024 4:30 PM [facility] Creatinine 0.98 0.50 - 1.10 mg/dL LAB CHEMISTRY METHOD 11/12/2024 4:30 PM [facility] eGFR 62 >=60 mL/min/1. 73m2 LAB CHEMISTRY METHOD 11/12/2024 4:30 PM EST [facility] Comment:Calculation based on the Chronic Kidney Disease Epidemiology Collaboration (CKD-EPI) equation refit without adjustment for race. BUN/Creatinine Ratio 11.2 LAB CHEMISTRY METHOD 11/12/2024 4:30 PM EST [facility] Calcium 9.3 8.5 - 10.5 mg/dL LAB CHEMISTRY METHOD 11/12/2024 4:30 PM [facility] Blood Venous blood specimen / Unknown Venipuncture / Unknown 11/12/2024 8:41 AM EST 11/12/2024 11:35 AM EST us Janice Núñez MD LAB BLOOD ORDERABLES Final Resul t [facility] [address] [place] [address], * (ABNORMAL) Complete blood count (11/12/2024 8:41 AM EST) WBC 6.1 4.8 - 10.8 K/mcL LAB HEMETOLOGY METHOD 11/12/2024 11:55 AM [facility] RBC 3.50(L) 3.80 - 4.80 M/mcL LAB HEMETOLOGY METHOD 11/12/2024 11:55 AM [facility] Hemoglobin 9.2(L) 11.5 - 16.0 g/dL LAB HEMETOLOGY METHOD 11/12/2024 11:55 AM [facility] Hematocrit 32.4(L) 35.0 - 47.0 % LAB HEMETOLOGY METHOD 11/12/2024 11:55 AM [facility] MCV 93.9 79.0 - 98.0 FL LAB HEMETOLOGY METHOD 11/12/2024 11:55 AM [facility] MCH 26.7(L) 27.0 - 32.0 pcg LAB HEMETOLOGY METHOD 11/12/2024 11:55 AM EST [facility] MCHC 28.4(L) 32.0 - 37.0 g/dL LAB HEMETOLOGY METHOD 11/12/2024 11:55 AM [facility] RDW 14.4 11.0 - 15.0 % LAB HEMETOLOGY METHOD 11/12/2024 11:55 AM [facility] Platelets 435(H) 130 - 400 K/mcL LAB HEMETOLOGY METHOD 11/12/2024 11:55 AM [facility] MPV 9.7 7.0 - 11.0 FL LAB HEMETOLOGY METHOD 11/12/2024 11:55 AM [facility] NRBC 0.0 <1.0 % LAB HEMETOLOGY METHOD 11/12/2024 11:55 AM [facility] NRBC Absolute 0.00 <0.10 K/mcL LAB HEMETOLOGY METHOD 11/12/2024 11:55 AM [facility] Blood Venous blood specimen / Unknown Venipuncture / Unknown 11/12/2024 8:41 AM EST 11/12/2024 11:35 AM EST us Janice Núñez MD LAB BLOOD ORDERABLES Final Resul t [facility] [address] [place] [address], documented in this encounter Visit Diagnoses Diagnosis [...] documented as of this encounter Care Teams Mental Health Aide Relationship Specialty Start Date End Date Kinjal Barron FNP [address] [place] [phone] PCP - General Family Medicine 03/06/25 documented as of this encounter
--- OUTSIDE RECORDS SUMMARY | 2025-11-22 15:07 | XMS_ITS | Encounter Summary ---
Author Organization [facility] Address [address] [place] [address] Care Team Providers Care P D Driver Name Role Phone Kinjal Barron FURNACE KEEPER Primary Care Provid er Encounter Details Date Type Department Care Team (Late st Contact Info) Description 10/15/2024 Lab Requisition [facility] - Main Lab [address] [place] [address] Alley San NP [address] [facility] [place] [address] Chronic obstructive pulmonary disease, unspecified (CMS/HCC V24, [...] 02/18/2026 10:30 AM EDT Office Visit [facility] Hematology Oncology [address] [place] [address] Lashanda Mcgill, DO [address] [place] [address] documented as of this encounter Procedures Procedure Name Priority Date/Time Associated Diagnosis Comments COMPLETE BLOOD COUNT Routine 10/15/2024 8:35 AM EST Chronic obstructive pulmonary disease, unspecified (CMS/HCC) BASIC METABOLIC PANEL Routine 10/15/2024 8:35 AM EST Chronic obstructive pulmonary disease, unspecified ([facility]/HCC) documented in this encounter Results * (ABNORMAL) Basic metabolic panel (10/15/2024 8:35 AM EST) Sodium 140 133 - 145 mmol/L LAB CHEMISTRY METHOD 10/15/2024 1:16 PM [facility] Potassium 3.8 3.5 - 5.5 mmol/L LAB CHEMISTRY METHOD 10/15/2024 1:16 PM [facility] Chloride 90(L) 96 - 110 mmol/L LAB CHEMISTRY METHOD 10/15/2024 1:16 PM [facility] CO2 40(H) 21 - 32 mmol/L LAB CHEMISTRY METHOD 10/15/2024 1:16 PM [facility] Anion Gap 10 3 - 11 LAB CHEMISTRY METHOD 10/15/2024 1:16 PM [facility] Glucose 81 70 - 100 mg/dL LAB CHEMISTRY METHOD 10/15/2024 1:16 PM [facility] BUN 15 5 - 25 mg/dL LAB CHEMISTRY METHOD 10/15/2024 1:16 PM [facility] Creatinine 1.00 0.50 - 1.10 mg/dL LAB CHEMISTRY METHOD 10/15/2024 1:16 PM [facility] eGFR 61 >=60 mL/min/1. 73m2 LAB CHEMISTRY METHOD 10/15/2024 1:16 PM EST [facility] Comment:Calculation based on the Chronic Kidney Disease Epidemiology Collaboration (CKD-EPI) equation refit without adjustment for race. BUN/Creatinine Ratio 15.0 LAB CHEMISTRY METHOD 10/15/2024 1:16 PM EST [facility] Calcium 9.6 8.5 - 10.5 mg/dL LAB CHEMISTRY METHOD 10/15/2024 1:16 PM [facility] Blood Venous blood specimen / Unknown Venipuncture / Unknown 10/15/2024 8:35 AM EST 10/15/2024 11:13 AM EST Alley San NP LAB BLOOD ORDERABLES Final Re sult [facility] [address] [place] [address], * (ABNORMAL) Complete blood count (10/15/2024 8:35 AM EST) WBC 8.3 4.8 - 10.8 K/mcL LAB HEMETOLOGY METHOD 10/15/2024 12:51 PM [facility] RBC 3.80 3.80 - 4.80 M/mcL LAB HEMETOLOGY METHOD 10/15/2024 12:51 PM [facility] Hemoglobin 10.7(L) 11.5 - 16.0 g/dL LAB HEMETOLOGY METHOD 10/15/2024 12:51 PM [facility] Hematocrit 37.8 35.0 - 47.0 % LAB HEMETOLOGY METHOD 10/15/2024 12:51 PM [facility] MCV 98.4(H) 79.0 - 98.0 FL LAB HEMETOLOGY METHOD 10/15/2024 12:51 PM [facility] MCH 27.9 27.0 - 32.0 pcg LAB HEMETOLOGY METHOD 10/15/2024 12:51 PM EST [facility] MCHC 28.3(L) 32.0 - 37.0 g/dL LAB HEMETOLOGY METHOD 10/15/2024 12:51 PM [facility] RDW 15.2(H) 11.0 - 15.0 % LAB HEMETOLOGY METHOD 10/15/2024 12:51 PM [facility] Platelets 474(H) 130 - 400 K/mcL LAB HEMETOLOGY METHOD 10/15/2024 12:51 PM [facility] MPV 9.6 7.0 - 11.0 FL LAB HEMETOLOGY METHOD 10/15/2024 12:51 PM [facility] NRBC 0.0 <1.0 % LAB HEMETOLOGY METHOD 10/15/2024 12:51 PM [facility] NRBC Absolute 0.00 <0.10 K/mcL LAB HEMETOLOGY METHOD 10/15/2024 12:51 PM [facility] Blood Venous blood specimen / Unknown Venipuncture / Unknown 10/15/2024 8:35 AM EST 10/15/2024 11:13 AM EST Alley San SHEET METAL DUCT INSTALLER APPRENTICE LAB BLOOD ORDERABLES Final Re sult [facility] [address] [place] [address], documented in this encounter Visit Diagnoses Diagnosis [...] documented as of this encounter Care Teams P D Driver Relationship Specialty Start Date End Date Kinjal Barron FNP [address] [place] [phone] PCP - General Family Medicine 03/06/25 documented as of this encounter
--- OUTSIDE RECORDS SUMMARY | 2025-11-22 15:07 | XMS_ITS | Encounter Summary ---
Author Organization [facility] Address [address] [place] [address] Care Team Providers Care Manager Entry Name Role Phone Kinjal Barron [address] MAGISTRATE Primary Care Provid er Encounter Details Date Type Department Care Team (Late st Contact Info) Description 10/29/[address] [facility] - Main Lab [address] [place] [address] Janice Núñez MD [address] [place], [place] [phone] Malignant neoplasm of unspecified part of left [...] [facility] Hemat[facility] Oncology [address] [place] [phone] Lashanda Mcgill, [address] [place] [address] documented as of this encounter Procedures Procedure [...] 133 - 145 mmol/L 10/30/2025 11:53 AM [facility] Potassium 3.6 3.5 - 5.5 mmol/L 10/30/2025 11:53 AM [facility] Chloride 92(L) 96 - 110 mmol/L 10/30/2025 11:53 AM [facility] CO2 >40(HH) 21 - 32 mmol/L 10/30/2025 11:53 AM [facility] Anion Gap <9 3 - 11 10/30/2025 11:53 AM [facility] Glucose 72 70 - 100 mg/dL 10/30/2025 11:53 AM [facility] BUN 19 5 - 25 mg/dL 10/30/2025 11:53 AM [facility] Creatinine 0.88 0.50 - 1.10 mg/dL 10/30/2025 11:53 AM [facility] eGFR 70 >=60 mL/min/1. 73m2 10/30/2025 11:53 AM [facility] Comment:Calculation based on the Chronic Kidney Disease Epidemiology Collaboration (CKD-EPI) equation refit without adjustment for race. BUN/Creatinine Ratio 21.6 10/30/2025 11:53 AM [facility] Calcium 8.9 8.5 - 10.5 mg/dL 10/30/2025 11:53 AM [facility] Blood Venous blood specimen / Unknown Venipuncture / Unknown 10/30/2025 7:18 AM EST 10/30/2025 10:32 AM EST us Janice Núñez MD LAB BLOOD ORDERABLES Final Resul t [facility] [address] [place] [address], * (ABNORMAL) Complete blood count (10/30/2025 7:18 AM EST) WBC 8.5 4.8 - 10.8 K/mcL LAB HEMETOLOGY METHOD 10/30/2025 10:54 AM [facility] RBC 3.00(L) 3.80 - 4.80 M/mcL LAB HEMETOLOGY METHOD 10/30/2025 10:54 AM [facility] Hemoglobin 7.9(L) 11.5 - 16.0 g/dL LAB HEMETOLOGY METHOD 10/30/2025 10:54 AM [facility] Hematocrit 27.5(L) 35.0 - 47.0 % LAB HEMETOLOGY METHOD 10/30/2025 10:54 AM [facility] MCV 92.9 79.0 - 98.0 FL LAB HEMETOLOGY METHOD 10/30/2025 10:54 AM [facility] MCH 26.7(L) 27.0 - 32.0 pcg LAB HEMETOLOGY METHOD 10/30/2025 10:54 AM [facility] MCHC 28.7(L) 32.0 - 37.0 g/dL LAB HEMETOLOGY METHOD 10/30/2025 10:54 AM [facility] RDW 15.6(H) 11.0 - 15.0 % LAB HEMETOLOGY METHOD 10/30/2025 10:54 AM EST [facility] Platelets 404(H) 130 - 400 K/mcL LAB HEMETOLOGY METHOD 10/30/2025 10:54 AM EST [facility] MPV 9.6 7.0 - 11.0 FL LAB HEMETOLOGY METHOD 10/30/2025 10:54 AM EST [facility] NRBC 0.0 <1.0 % LAB HEMETOLOGY METHOD 10/30/2025 10:54 AM EST [facility] NRBC Absolute 0.00 <0.10 K/mcL LAB HEMETOLOGY METHOD 10/30/2025 10:54 AM [facility] Blood Venous blood specimen / Unknown Venipuncture / Unknown 10/30/2025 7:18 AM EST 10/30/2025 10:32 AM EST us Janice Núñez MD LAB BLOOD ORDERABLES Final Resul t [facility] [address] [place] [address], documented in this encounter Visit Diagnoses Diagnosis Malignant neoplasm of unspecified part of left bronchus or lung (CMS/HCC V24, CMS/HCC V28) Chronic respiratory failure with hypercapnia (CMS/HCC V24, CMS/HCC V28) documented in this encounter Additional Health Concerns Assessment Noted Time PHQ-9 Depression Total Score: 1 07/19/20 25 5:04 PM EDT documented as of this encounter Care Teams Manager Entry Relationship Specialty Start Date End Date Kinjal Barron FNP [address] [place] [phone] PCP - General Family Medicine 03/06/25 documented as of this encounter
--- OUTSIDE RECORDS SUMMARY | 2025-11-22 15:07 | XMS_ITS | Encounter Summary ---
Author Organization [facility] Address [address] [place] [address] Care Team Providers Care Radio Talk Show Host Name Role Phone Kinjal Barron EMERGENCY VEHICLE DRIVER Primary Care Provid er Encounter Details Date Type Department Care Team (Late st Contact Info) Description 10/27/[address] [facility] - Main Lab [address] [place] [address] Janice Núñez MD [address] [place], [place] [phone] Chronic obstructive pulmonary disease, unspecified (CMS/HCC V24, [...] [facility] Hematology Oncology [address] [place] [phone] Lashanda Mcgill, DO [address] [place] [address] documented as of this encounter Procedures Procedure Name Priority Date/Time Associated Diagnosis Comments COMPLETE BLOOD COUNT Routine 10/29/2024 8:00 AM EST Chronic obstructive pulmonary disease, unspecified (CMS/HCC) BASIC METABOLIC PANEL Routine 10/29/2024 8:00 AM EST Chronic obstructive pulmonary disease, unspecified ([facility]/HCC) documented in this encounter Results * [...] Resul t [facility] [address] [place] [address], * (ABNORMAL) Complete blood count (10/29/2024 8:00 [...] 12:10 PM EST [facility] MCHC 28.7(L) 32.0 [...] 12:[address] [facility] NRBC Absolute 0.00 <0.10 K/mcL LAB HEMETOLOGY METHOD 10/29/2024 12:[address] [facility] Blood Venous blood specimen / Unknown Venipuncture / Unknown 10/29/2024 8:00 AM EST 10/29/2024 11:30 AM EST us Janice Núñez MD LAB BLOOD ORDERABLES Final Resul t [facility] [address] [place] [address], documented in this encounter Visit Diagnoses Diagnosis [...] documented as of this encounter Care Teams Radio Talk Show Host Relationship Specialty Start Date End Date Kinjal Barron FNP [address] [place] [phone] PCP - General Family Medicine 03/06/25 documented as of this encounter
--- OUTSIDE RECORDS SUMMARY | 2025-11-22 15:07 | XMS_ITS | Encounter Summary ---
Author Organization [facility] Address [address] [place] [address] Care Team Providers Care Oenologist Name Role Phone Kinjal Barron SCHOOL PHOTOGRAPHER Primary Care Provid er Encounter Details Date Type Department Care Team (Late st Contact Info) Description 09/24/[address] [facility] - Main Lab [address] [place] [address] Janice Núñez MD [address] [place], [place] [phone] Malignant neoplasm of unspecified part of left [...] [facility] Hematology Oncology [address] [place] [phone] Lashanda Mcgill, [address] [place] [address] documented as of this encounter Procedures Procedure [...] mmol/L LAB CHEMISTRY METHOD 09/25/2025 3:46 PM [facility] Potassium 3.3(L) 3.5 - 5.5 mmol/L LAB CHEMISTRY METHOD 09/25/2025 3:46 PM [facility] Chloride 93(L) 96 - 110 mmol/L LAB CHEMISTRY METHOD 09/25/2025 3:46 PM [facility] CO2 44(HH) 21 - 32 mmol/L LAB CHEMISTRY METHOD 09/25/2025 3:46 PM [facility] Anion Gap 4 3 - 11 LAB CHEMISTRY METHOD 09/25/2025 3:46 PM [facility] Glucose 71 70 - 100 mg/dL LAB CHEMISTRY METHOD 09/25/2025 3:46 PM [facility] BUN 17 5 - 25 mg/dL LAB CHEMISTRY METHOD 09/25/2025 3:46 PM [facility] Creatinine 0.86 0.50 - 1.10 mg/dL LAB CHEMISTRY METHOD 09/25/2025 3:46 PM [facility] eGFR 72 >=60 mL/min/1. 73m2 LAB CHEMISTRY METHOD 09/25/2025 3:46 PM [facility] Comment:Calculation based on the Chronic Kidney Disease Epidemiology Collaboration (CKD-EPI) equation refit without adjustment for race. BUN/Creatinine Ratio 19.8 LAB CHEMISTRY METHOD 09/25/2025 3:46 PM EDT [facility] Calcium 9.3 8.5 - 10.5 mg/dL LAB CHEMISTRY METHOD 09/25/2025 3:46 PM EDT [facility] Blood Venous blood specimen / Unknown Venipuncture / Unknown 09/25/2025 6:14 AM EDT 09/25/2025 12:02 PM EDT us Janice Núñez MD LAB BLOOD ORDERABLES Final Resul t [facility] [address] [place] [address], [place] [phone] * (ABNORMAL) Complete blood count (09/25/2025 6:14 AM EDT) WBC 8.5 4.8 - 10.8 K/mcL LAB HEMETOLOGY METHOD 09/25/2025 12:36 PM EDT [facility] RBC 3.50(L) 3.80 - 4.80 M/mcL LAB HEMETOLOGY METHOD 09/25/2025 12:36 PM EDT [facility] Hemoglobin 10.0(L) 11.5 - 16.0 g/dL LAB HEMETOLOGY METHOD 09/25/2025 12:36 PM EDT [facility] Hematocrit 35.0 35.0 - 47.0 % LAB HEMETOLOGY METHOD 09/25/2025 12:36 PM EDT [facility] MCV 100.9(H) 79.0 - 98.0 FL LAB HEMETOLOGY METHOD 09/25/2025 12:36 PM EDT [facility] MCH 28.8 27.0 - 32.0 pcg LAB HEMETOLOGY METHOD 09/25/2025 12:36 PM EDT [facility] MCHC 28.6(L) 32.0 - 37.0 g/dL LAB HEMETOLOGY METHOD 09/25/2025 12:36 PM EDT [facility] RDW 16.9(H) 11.0 - 15.0 % LAB HEMETOLOGY METHOD 09/25/2025 12:36 PM EDT [facility] Platelets 358 130 - 400 K/mcL LAB HEMETOLOGY METHOD 09/25/2025 12:36 PM EDT [facility] MPV 9.6 7.0 - 11.0 FL LAB HEMETOLOGY METHOD 09/25/2025 12:36 PM EDT [facility] NRBC 0.2 <1.0 % LAB HEMETOLOGY METHOD 09/25/2025 12:36 PM EDT [facility] NRBC Absolute 0.02 <0.10 K/mcL LAB HEMETOLOGY METHOD 09/25/2025 12:36 PM EDT [facility] Blood Venous blood specimen / Unknown Venipuncture / Unknown 09/25/2025 6:14 AM EDT 09/25/2025 10:26 AM EDT us Janice Núñez MD LAB BLOOD ORDERABLES Final Resul t [facility] [address] [place] [address], documented in this encounter Visit Diagnoses Diagnosis Malignant neoplasm of unspecified part of left bronchus or lung (CMS/HCC V24, CMS/HCC V28) Chronic respiratory failure with hypercapnia (CMS/HCC V24, CMS/HCC V28) documented in this encounter Additional Health Concerns Assessment Noted Time PHQ-9 Depression Total Score: 1 07/19/20 25 5:04 PM EDT documented as of this encounter Care Teams Oenologist Relationship Specialty Start Date End Date Kinjal Barron FNP [address] [place] [phone] PCP - General Family Medicine 03/06/25 documented as of this encounter
--- OUTSIDE RECORDS SUMMARY | 2025-11-22 15:07 | XMS_ITS | Encounter Summary ---
Author Organization [facility] Address [address] [place] [address] Care Team Providers Care Electronic Assembler Name Role Phone Kinjal Barron HEAD SHIPPER Primary Care Provid er Encounter Details Date Type Department Care Team (Late st Contact Info) Description 11/20/2024 Lab Requisition [facility] - Main Lab [address] [place] [address] Janice Núñez MD [address] [place], [place] [phone] Chronic obstructive pulmonary disease, unspecified (CMS/HCC V24, [...] [facility] Hematology Oncology [address] [place] [phone] Lashanda Mcgill, DO [address] [place] [address] documented as of this encounter Procedures Procedure [...] mmol/L LAB CHEMISTRY METHOD 11/20/2024 10:56 AM [facility] Potassium 4.3 3.5 - 5.5 mmol/L LAB CHEMISTRY METHOD 11/20/2024 10:56 AM [facility] Chloride 87(L) 96 - 110 mmol/L LAB CHEMISTRY METHOD 11/20/2024 10:56 AM [facility] CO2 44(HH) 21 - 32 mmol/L LAB CHEMISTRY METHOD 11/20/2024 10:56 AM [facility] Anion Gap 3 3 - 11 LAB CHEMISTRY METHOD 11/20/2024 10:56 AM [facility] Glucose 83 70 - 100 mg/dL LAB CHEMISTRY METHOD 11/20/2024 10:56 AM [facility] BUN 17 5 - 25 mg/dL LAB CHEMISTRY METHOD 11/20/2024 10:56 AM [facility] Creatinine 0.95 0.50 - 1.10 mg/dL LAB CHEMISTRY METHOD 11/20/2024 10:56 AM [facility] eGFR 65 >=60 mL/min/1. 73m2 LAB CHEMISTRY METHOD 11/20/2024 10:56 AM [facility] Comment:Calculation based on the Chronic Kidney Disease Epidemiology Collaboration (CKD-EPI) equation refit without adjustment for race. BUN/Creatinine Ratio 17.9 LAB CHEMISTRY METHOD 11/20/2024 10:56 AM [facility] Calcium 9.2 8.5 - 10.5 mg/dL LAB CHEMISTRY METHOD 11/20/2024 10:56 AM [facility] Blood Venous blood specimen / Unknown Venipuncture / Unknown 11/20/2024 6:24 AM EST 11/20/2024 9:31 AM EST us Janice Núñez MD LAB BLOOD ORDERABLES Final Resul t [facility] [address] [place] [address], * (ABNORMAL) Complete blood count (11/20/2024 6:24 AM EST) WBC 8.4 4.8 - 10.8 K/mcL LAB HEMETOLOGY METHOD 11/20/2024 10:10 AM [facility] RBC 3.70(L) 3.80 - 4.80 M/mcL LAB HEMETOLOGY METHOD 11/20/2024 10:10 AM [facility] Hemoglobin 9.5(L) 11.5 - 16.0 g/dL LAB HEMETOLOGY METHOD 11/20/2024 10:10 AM [facility] Hematocrit 34.1(L) 35.0 - 47.0 % LAB HEMETOLOGY METHOD 11/20/2024 10:10 AM [facility] MCV 93.4 79.0 - 98.0 FL LAB HEMETOLOGY METHOD 11/20/2024 10:10 AM [facility] MCH 26.0(L) 27.0 - 32.0 pcg LAB HEMETOLOGY METHOD 11/20/2024 10:10 AM EST [facility] MCHC 27.9(L) 32.0 - 37.0 g/dL LAB HEMETOLOGY METHOD 11/20/2024 10:10 AM [facility] RDW 14.9 11.0 - 15.0 % LAB HEMETOLOGY METHOD 11/20/2024 10:10 AM EST [facility] Platelets 512(H) 130 - 400 K/mcL LAB HEMETOLOGY METHOD 11/20/2024 10:10 AM [facility] MPV 9.8 7.0 - 11.0 FL LAB HEMETOLOGY METHOD 11/20/2024 10:10 AM [facility] NRBC 0.0 <1.0 % LAB HEMETOLOGY METHOD 11/20/2024 10:10 AM [facility] NRBC Absolute 0.00 <0.10 K/mcL LAB HEMETOLOGY METHOD 11/20/2024 10:10 AM [facility] Blood Venous blood specimen / Unknown Venipuncture / Unknown 11/20/2024 6:24 AM EST 11/20/2024 9:31 AM EST us Janice Núñez MD LAB BLOOD ORDERABLES Final Resul t [facility] [address] [place] [address], documented in this encounter Visit Diagnoses Diagnosis [...] documented as of this encounter Care Teams Electronic Assembler Relationship Specialty Start Date End Date Kinjal Barron FNP [address] [place] [phone] PCP - General Family Medicine 03/06/25 documented as of this encounter
--- OUTSIDE RECORDS SUMMARY | 2025-11-22 15:07 | XMS_ITS | Encounter Summary ---
Author Organization [facility] Address [address] [place] [address] Care Team Providers Care Railcar Switcher Name Role Phone Kinjal Barron DERRICK OPERATOR Primary Care Provid er Encounter Details Date Type Department Care Team (Late st Contact Info) Description 11/03/2024 Lab Requisition [facility] - Main Lab [address] [place] [address] Janice Núñez MD [address] [place], [place] [phone] Chronic obstructive pulmonary disease, unspecified (CMS/HCC V24, [...] [facility] Hematology Oncology [address] [place] [phone] Lashanda Mcgill, DO [address] [place] [address] documented as of this encounter Procedures Procedure Name Priority Date/Time Associated Diagnosis Comments COMPLETE BLOOD COUNT Routine 11/05/2024 8:13 AM EST Chronic obstructive pulmonary disease, unspecified (CMS/HCC) BASIC METABOLIC PANEL Routine 11/05/2024 8:13 AM EST Chronic obstructive pulmonary disease, unspecified ([facility]/HCC) documented in this encounter Results [...] Resul t [facility] [address] [place] [address], * (ABNORMAL) Complete blood count (11/05/2024 8:13 [...] Resul t [facility] [address] [place] [address], documented in this encounter Visit Diagnoses Diagnosis [...] documented as of this encounter Care Teams Railcar Switcher Relationship Specialty Start Date End Date Kinjal Barron FNP [address] [place] [phone] PCP - General Family Medicine 03/06/25 documented as of this encounter
--- OUTSIDE RECORDS SUMMARY | 2025-11-22 15:07 | XMS_ITS ---
Author Organization [address] [facility] Address [address] [place] [address] Phone Care Team Providers Care Quarter Lining Smoother Name Role Phone Rabia Barrongeovanny Jacqueline TURKEY CLEANER Primary Care Provid er Active Problems Problem [...] on CPAP 11/08/2017 Overview (09/12/2024): Life supply/cpap [facility] Polysomnogram Trilogy treatment [...] eft lung ([facility]/HCC V24, [facility] V28) Treatment Medications Current Day (Day 1 [...]
--- OUTSIDE RECORDS SUMMARY | 2025-11-22 15:08 | XMS_ITS | Encounter Summary ---
Author Organization [facility] Address [address] [place] [address] Care Team Providers Care Merchant Seaman Name Role Phone Kinjal Barron CLEANER SIGNS Primary Care Provid er Encounter Details Date Type Department Care Team (Late st Contact Info) Description 09/10/2025 Lab Requisition [facility] - Main Lab [address] [place] [address] Janice Núñez MD [address] [place], [place] [phone] Malignant neoplasm of unspecified part of left [...] [facility] Hematology Oncology [address] [place] [phone] Lashanda Mcgill, [address] [place] [address] documented as of this encounter Procedures Procedure [...] mmol/L LAB CHEMISTRY METHOD 09/11/2025 9:07 AM [facility] Potassium 3.8 3.5 - 5.5 mmol/L LAB CHEMISTRY METHOD 09/11/2025 9:07 AM [facility] Chloride 100 96 - 110 mmol/L LAB CHEMISTRY METHOD 09/11/2025 9:07 AM [facility] CO2 39(H) 21 - 32 mmol/L LAB CHEMISTRY METHOD 09/11/2025 9:07 AM [facility] Anion Gap 3 3 - 11 LAB CHEMISTRY METHOD 09/11/2025 9:07 AM [facility] Glucose 107(H) 70 - 100 mg/dL LAB CHEMISTRY METHOD 09/11/2025 9:07 AM [facility] BUN 9 5 - 25 mg/dL LAB CHEMISTRY METHOD 09/11/2025 9:07 AM [facility] Creatinine 0.82 0.50 - 1.10 mg/dL LAB CHEMISTRY METHOD 09/11/2025 9:07 AM [facility] eGFR 77 >=60 mL/min/1. 73m2 LAB CHEMISTRY METHOD 09/11/2025 9:07 AM [facility] Comment:Calculation based on the Chronic Kidney Disease Epidemiology Collaboration (CKD-EPI) equation refit without adjustment for race. BUN/Creatinine Ratio 11.0 LAB CHEMISTRY METHOD 09/11/2025 9:07 AM EDT [facility] Calcium 9.1 8.5 - 10.5 mg/dL LAB CHEMISTRY METHOD 09/11/2025 9:07 AM EDT [facility] Blood Venous blood specimen / Unknown Venipuncture / Unknown 09/11/2025 5:56 AM EDT 09/11/2025 8:17 AM EDT us Janice Núñez MD LAB BLOOD ORDERABLES Final Resul t [facility] [address] [place] [address], [place] [phone] * (ABNORMAL) Complete blood count (09/11/2025 5:56 AM EDT) WBC 4.7(L) 4.8 - 10.8 K/mcL LAB HEMETOLOGY METHOD 09/11/2025 8:48 AM T [facility] RBC 3.90 3.80 - 4.80 M/mcL LAB HEMETOLOGY METHOD 09/11/2025 8:48 AM [facility] Hemoglobin 10.8(L) 11.5 - 16.0 g/dL LAB HEMETOLOGY METHOD 09/11/2025 8:48 AM [facility] Hematocrit 37.7 35.0 - 47.0 % LAB HEMETOLOGY METHOD 09/11/2025 8:48 AM T [facility] MCV 95.9 79.0 - 98.0 FL LAB HEMETOLOGY METHOD 09/11/2025 8:48 AM [facility] MCH 27.5 27.0 - 32.0 pcg LAB HEMETOLOGY METHOD 09/11/2025 8:48 AM T [facility] MCHC 28.6(L) 32.0 - 37.0 g/dL LAB HEMETOLOGY METHOD 09/11/2025 8:48 AM EDT [facility] RDW 15.9(H) 11.0 - 15.0 % LAB HEMETOLOGY METHOD 09/11/2025 8:48 AM EDT [facility] Platelets 381 130 - 400 K/mcL LAB HEMETOLOGY METHOD 09/11/2025 8:48 AM EDT [facility] MPV 9.6 7.0 - 11.0 FL LAB HEMETOLOGY METHOD 09/11/2025 8:48 AM EDT [facility] NRBC 0.0 <1.0 % LAB HEMETOLOGY METHOD 09/11/2025 8:48 AM EDT [facility] NRBC Absolute 0.00 <0.10 K/mcL LAB HEMETOLOGY METHOD 09/11/2025 8:48 AM EDT [facility] Blood Venous blood specimen / Unknown Venipuncture / Unknown 09/11/2025 5:56 AM EDT 09/11/2025 8:14 AM EDT Janice Núñez MD LAB BLOOD ORDERABLES Final Resul t [facility] [address] [place] [address], documented in this encounter Visit Diagnoses Diagnosis Malignant neoplasm of unspecified part of left bronchus or lung (CMS/HCC V24, CMS/HCC V28) Chronic respiratory failure with hypercapnia (CMS/HCC V24, CMS/HCC V28) documented in this encounter Additional Health Concerns Assessment Noted Time PHQ-9 Depression Total Score: 1 07/19/20 25 5:04 PM EDT documented as of this encounter Care Teams Merchant Seaman Relationship Specialty Start Date End Date Kinjal Barron FNP [address] [place] [phone] PCP - General Family Medicine 03/06/25 documented as of this encounter
--- OUTSIDE RECORDS SUMMARY | 2025-11-22 15:08 | XMS_ITS | Clinical Summary ---
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 Primary Care Provid er Allergies Active Allergy [...] ions:Chronic obstructive pulmonary disease, unspecified COPD type (CMS/[facility] V24, [facility] V28),Chronic respiratory failure with hypercapnia ([facility] V24, [facility] V28) Take 3 mL [...] tabletIndicatio ns:Squamous cell carcinoma of left lung ([facility] V24, [facility] V28) Take 8 mg [...] 2 (two) times a day. Active omega 2-quj-vxq-fish oil 300 mg (120 mg- 180mg)-1,000 mg [...] on CPAP 11/08/2017 Overview (09/12/2024): Life supply/cpap [facility] Polysomnogram Trilogy treatment study. Date 09/06/2019. [...] Encounters Date Type Department Care Team Description 11/21/2025 Lab Requisition [facility] Lab [address] [place] [phone] Janice Núñez MD Heart failure, unspecified ([facility]/HCC V24, [facility]/HCC V28); Anemia, unspecified 11/19/2025 Lab Requisition [facility] [address] [place] [phone] Janice Núñez MD Malignant neoplasm of unspecified part of left bronchus or lung ([facility]/HCC V24, [facility]/HCC V28); Chronic respiratory failure with hypercapnia ([facility]/HCC V24, [facility]/HCC V28) 11/15/2025 Lab Requisition [facility] [address] [place] [phone] Janice Núñez MD Hypokalemia 11/12/2025 Lab Requisition [facility] [address] [place] [phone] Janice Núñez MD Malignant neoplasm of unspecified part of left bronchus or lung ([facility]/HCC V24, [facility]/HCC V28); Chronic respiratory failure with hypercapnia ([facility]/HCC V24, [facility]/HCC V28) 11/05/2025 Lab Requisition [facility] [address] [place] [phone] Janice Núñez MD Malignant neoplasm of unspecified part of left bronchus or lung ([facility]/HCC V24, [facility]/HCC V28); Chronic respiratory failure with hypercapnia ([facility]/HCC V24, CMS/HCC V28) 10/29/2025 Lab Requisition [facility] [address] [place] [phone] Janice Núñez MD Malignant neoplasm of unspecified part of left bronchus or lung ([facility]/HCC V24, CMS/HCC V28); Chronic respiratory failure with hypercapnia ([facility]/HCC V24, CMS/HCC V28) 10/28/2025 Telephone [facility] Hematology Oncology [address] [place] [phone] Lashanda Mcgill DO 10/22/2025 Lab Requisition [facility] [address] [place] [phone] Janice Núñez MD Malignant neoplasm of unspecified part of left bronchus or lung (CMS/HCC V24, CMS/HCC V28); Chronic respiratory failure with hypercapnia (CMS/HCC V24, CMS/HCC V28) 10/21/2025 Lab Requisition [facility] [address] [place] [phone] Janice Núñez MD Anemia, unspecified; Essential (primary) hypertension; Malignant neoplasm of unspecified part of unspecified bronchus or lung (CMS/HCC V24, CMS/HCC V28) 10/18/2025 10:45 AM EST Office Visit [facility] Hematology Oncology [address] [place] [phone] Lashanda Mcgill DO Squamous cell carcinoma of left lung (CMS/HCC V24, CMS/HCC V28) (Primary Dx); Chronic respiratory failure with hypercapnia (CMS/HCC V24, CMS/HCC V28); Mild anemia 10/16/2025 Lab Requisition [facility] [address] [place] [phone] Janice Núñez MD Dysuria 10/15/2025 Lab Requisition [facility] [address] [place] [phone] Janice Núñez MD Malignant neoplasm of unspecified part of left bronchus or lung (CMS/HCC V24, CMS/HCC V28); Chronic respiratory failure with hypercapnia (CMS/HCC V24, CMS/HCC V28) 10/08/2025 10:00 AM EST - 10/08/2025 11:59 PM EST Hospital Encounter [facility] PET Scan [address] [place] [phone] Squamous cell carcinoma of left lung (CMS/HCC V24, CMS/HCC V28); Personal history of malignant neoplasm of lung; Malignant neoplasm of overlapping sites of left bronchus and lung (CMS/HCC V24, CMS/HCC V28) Discharge Disposition: Home or Self Care 10/08/2025 Lab Requisition [facility] [address] [place] [phone] Janice Núñez MD Malignant neoplasm of unspecified part of left bronchus or lung (CMS/HCC V24, CMS/HCC V28); Chronic respiratory failure with hypercapnia (CMS/HCC V24, CMS/HCC V28) 10/01/2025 Lab Requisition [facility] [address] [place] [phone] Janice Núñez MD Malignant neoplasm of unspecified part of left bronchus or lung (CMS/HCC V24, CMS/HCC V28); Chronic respiratory failure with hypercapnia (CMS/HCC V24, CMS/HCC V28) 09/24/2025 Lab Requisition [facility] [address] [place] [phone] Janice Núñez MD Malignant neoplasm of unspecified part of left bronchus or lung (CMS/HCC V24, CMS/HCC V28); Chronic respiratory failure with hypercapnia (CMS/HCC V24, CMS/HCC V28) 09/19/2025 Telephone [facility] Radiation Oncology [address] [place] [phone] Debra Loya, RD 09/17/2025 11:45 AM EDT Office Visit [facility] Hematology Oncology [address] [place] [phone] Lashanda Mcgill DO Squamous cell carcinoma of left lung (CMS/HCC V24, CMS/HCC V28) (Primary Dx); Personal history of malignant neoplasm of lung; Malignant neoplasm of overlapping sites of left bronchus and lung (CMS/HCC V24, CMS/HCC V28) 09/17/2025 Lab Requisition [facility] [address] [place] [phone] Janice Núñez MD Malignant neoplasm of unspecified part of left bronchus or lung ([facility] Chronic respiratory failure with hypercapnia ([facility], [facility] V28) 09/12/2025 Telephone [facility] Hematology Oncology [address] [place] [phone] Elke Duong, SHELBY 09/10/2025 Lab Requisition [facility] [address] [place] [phone] Janice Núñez MD Malignant neoplasm of unspecified part of left bronchus or lung ([facility] V[facility], [facility] V28); Chronic respiratory failure with hypercapnia ([facility] V24, [facility] V28) 09/09/2025 Lab Requisition [facility] [address] [place] [phone] Janice Núñez MD Chronic obstructive pulmonary disease, unspecified ([facility], [facility] V28); Malignant neoplasm of unspecified part of unspecified bronchus or lung ([facility], [facility] V28) 09/05/2025 10:39 AM EDT - 09/06/2025 6:08 PM EDT Hospital Encounter [facility] Intermediate Care Unit B [address] [place] [phone] Glenroy Paez MD Flores, Carlos M, MD Bell, Alistair A, MD Stroke-like symptoms (Primary Dx) Discharge Disposition: Assisted Facility 09/05/2025 Telephone [facility] Hematology Oncology [address] [place] [phone] Erika Tran, SHELBY 09/03/2025 Lab Requisition [facility] [address] [place] [phone] Janice Núñez MD Malignant neoplasm of unspecified part of left bronchus or lung ([facility], [facility] V28); Chronic respiratory failure with hypercapnia ([facility], [facility] V28) 09/01/2025 Lab Requisition [facility] [address] [place] [phone] Janice Núñez MD Frequency of micturition; Fever, unspecified 08/30/2025 Lab Requisition [facility] [address] [place] [phone] Janice Núñez MD Hyperkalemia 08/27/2025 Lab Requisition [facility] [address] [place] [phone] Janice Núñez MD Malignant neoplasm of unspecified part of left bronchus or lung ([facility] V[facility], [facility] V28); Chronic respiratory failure with hypercapnia ([facility], [facility] V28) from Last 3 Months Immunizations Immunization Administration [...] Comments Depression 10/09/2017 DX:Depression Bipolar I disorder ([facility] V24, [facility] V28) 06/10/2017 DX:Bipolar I disorder (HCC) Chronic obstructive pulmonar y disease ([facility] V24, [facility] V28) 07/29/2017 DX:Chronic obstructive pulm onary disease (HCC), will bipap Chronic respiratory failure with hypercapnia ([facility] V[facility], [facility] V28) 08/02/2017 DX:Chronic resp iratory failure with [...] Arrhythmia Afib , hx Emphysema of lung ([facility] V 24, [facility] V28) per daughter HL (hearing loss) wears hearing aids Full dentures Lung cancer ([facility] V24, [facility] V28) 03/2025 Asthma 1111 [...] [facility] Hematology Oncology [address] [place] [phone] Lashanda Mcgill, DO [address] [place] [address] Health Maintenance Due Date Last Done Comments [...] 09/06/2025, 024 Hypertension/CHF/CAD Annual BMP Blood Test 11/15/2026 11/21/2025, 11/15/2025, 11/13/2025, Additional history exists Colorectal Cancer Screening: Colonoscopy [...] this topic Medical Devices Implanted Type Area Spinning Machine Tender Device Identifier Shelf Expiration Date Model / Serial / Lot Port Pwr Isp Attach 6f Interm Galina - [id number] Implanted:Qty : 1 on 07/09/2025 by Jesica Henderson MD at [facility] Central/Per ipheral Catheters and Ports Right: Internal Jugular CR BARD PERIPHERAL VASCULAR [id number] 09/27/2025 [id number] / / [id number] Marker Cobra Superlock - Sna - [id number] Implanted:Qty : 1 on 04/03/2025 by Justine Wong MD at [facility] Implants Left: Lung [employer] [id number] 08/27/2028 [id number] / [id number] / [id number] Description:LEFT UPPER LOBE Procedures Procedure Name Priority Date/Time Associated Diagnosis Comments BASIC METABOLIC PANEL Routine 11/21/2025 7:38 AM EST Heart failure, unspecified (CMS/HCC V24, CMS/HCC V28) Anemia, unspecified COMPLETE BLOOD COUNT Routine 11/21/2025 7:38 AM EST Heart failure, unspecified (CMS/HCC V24, CMS/HCC V28) Anemia, unspecified BASIC METABOLIC PANEL Routine 11/15/2025 7:10 AM [...] failure with hypercapnia (CMS/HCC V24, CMS/HCC V28) HM COLONOSCOPY Routine 04/27/2024 HM DEPRESSION SCREENING Routine 04/16/2024 LUIS ARMANDO SCREENING DIGITAL Routine 03/22/2024 8:50 AM EDT Encounter for screening mammogram for malignant neoplasm of breast [facility] DEXA AXIAL SKELETON Routine 03/22/2024 8:14 AM EDT Encounter for screening for osteoporosis HM HEPATITIS C SCREENING Routine 02/09/2024 FALLS RISK ASSESSMENT Routine 02/09/2024 from Last 3 Months or Most Recently Relevant to Health Maintenance Results * (ABNORMAL) Complete blood count (11/21/2025 7:38 AM EST) Only the most recent of14 resultswithin the time period is included. WBC 7.6 4.8 - 10.8 K/mcL LAB HEMETOLOGY METHOD 11/21/2025 9:40 AM [facility] RBC 3.40(L) 3.80 - 4.80 M/mcL LAB HEMETOLOGY METHOD 11/21/2025 9:40 AM [facility] LAB Hemoglobin 8.5(L) 11.5 - 16.0 g/dL LAB HEMETOLOGY METHOD 11/21/2025 9:40 AM [facility] LAB Hematocrit 30.4(L) 35.0 - 47.0 % LAB HEMETOLOGY METHOD 11/21/2025 9:40 AM [facility] LAB MCV 89.7 79.0 - 98.0 FL LAB HEMETOLOGY METHOD 11/21/2025 9:40 AM [facility] LAB MCH 25.1(L) 27.0 - 32.0 pcg LAB HEMETOLOGY METHOD 11/21/2025 9:40 AM [facility] LAB MCHC 28.0(L) 32.0 - 37.0 g/dL LAB HEMETOLOGY METHOD 11/21/2025 9:40 AM [facility] LAB RDW 16.2(H) 11.0 - 15.0 % LAB HEMETOLOGY METHOD 11/21/2025 9:40 AM [facility] LAB Platelets 516(H) 130 - 400 K/mcL LAB HEMETOLOGY METHOD 11/21/2025 9:40 AM [facility] LAB MPV 9.2 7.0 - 11.0 FL LAB HEMETOLOGY METHOD 11/21/2025 9:40 AM EST [facility] NRBC 0.0 <1.0 % LAB HEMETOLOGY METHOD 11/21/2025 9:40 AM EST [facility] NRBC Absolute 0.00 <0.10 K/mcL LAB HEMETOLOGY METHOD 11/21/2025 9:40 AM EST [facility] Blood Venous blood specimen / Unknown Venipuncture / Unknown 11/21/2025 7:38 AM EST 11/21/2025 8:59 AM EST us Janice Núñez MD LAB BLOOD ORDERABLES Final Resul t [facility] [address] [place] [address], [place] [phone] * (ABNORMAL) Basic metabolic panel (11/21/2025 7:38 AM EST) Only the most recent of19 resultswithin the time period is included. Sodium 140 133 - 145 mmol/L 11/21/2025 10:29 AM [facility] Potassium 3.6 3.5 - 5.5 mmol/L 11/21/2025 10:29 AM [facility] Chloride 90(L) 96 - 110 mmol/L 11/21/2025 10:29 AM [facility] CO2 >40(HH) 21 - 32 mmol/L 11/21/2025 10:29 AM [facility] Anion Gap <10 3 - 11 11/21/2025 10:29 AM [facility] Glucose 97 70 - 100 mg/dL 11/21/2025 10:29 AM [facility] BUN 12 5 - 25 mg/dL 11/21/2025 10:29 AM [facility] Creatinine 1.00 0.50 - 1.10 mg/dL 11/21/2025 10:29 AM [facility] eGFR 60 >=60 mL/min/1. 73m2 11/21/2025 10:29 AM [facility] Comment:Calculation based on the Chronic Kidney Disease Epidemiology Collaboration (CKD-EPI) equation refit without adjustment for race. BUN/Creatinine Ratio 12.0 11/21/2025 10:29 AM [facility] Calcium 9.0 8.5 - 10.5 mg/dL 11/21/2025 10:29 AM [facility] Blood Venous blood specimen / Unknown Venipuncture / Unknown 11/21/2025 7:38 AM EST 11/21/2025 8:59 AM EST us Janice Núñez MD LAB BLOOD ORDERABLES Final Resul t Performing Organization Address [facility] de Phone Number [facility] [address] [place] [address], [place] [phone] * (ABNORMAL) Iron and TIBC (10/21/2025 8:45 AM EST) Iron 10(L) 40 - 150 mcg/dL 10/21/2025 11:32 AM [facility] TIBC 392 250 - 450 mcg/dL 10/21/2025 11:32 AM [facility] Iron Saturation 3(L) 15 - 50 % 11:32 AM [facility] Blood Venous blood specimen / Unknown Venipuncture / Unknown 10/21/2025 8:45 AM EST 10/21/2025 10:33 AM EST us Janice Núñez MD LAB BLOOD ORDERABLES Final Resul t Performing Organization Address [facility]/ZIP Co de Phone Number [facility] [address] [place] [address], [place] [phone] * Folate (10/21/2025 8:45 AM EST) Pathologist [facility] Folate 18.8 >=5.4 ng/ml 10/21/2025 11:30 AM EST [facility] Blood Venous blood specimen / Unknown Venipuncture / Unknown 10/21/2025 8:45 AM EST 10/21/2025 10:33 AM EST Narrative [facility] - 10/21/2025 11:30 AM EST Over the counter supplements containing high doses of biotin may interfere with this assay. If interference is suspected, patients shoud be retested after refraining from biotin supplements for 72 hours. us Janice Núñez MD LAB BLOOD ORDERABLES Final Resul t Performing Organization Address [facility]/ZIP Co de Phone Number [facility] [address] [place] [address], [place] [phone] * Ferritin (10/21/2025 8:45 AM EST) [facility] Ferritin 11 7 - 271 ng/mL 10/21/2025 11:30 AM EST [facility] Blood Venous blood specimen / Unknown Venipuncture / Unknown 10/21/2025 8:45 AM EST 10/21/2025 10:33 AM EST us Janice Núñez MD LAB BLOOD ORDERABLES Final Resul t [facility] [address] [place] [address], [place] [phone] * Vitamin B12 (10/21/2025 8:45 AM EST) [facility] Vitamin B-12 631 211 - 911 pcg/mL 10/21/2025 11:30 AM EST [facility] Blood Venous blood specimen / Unknown Venipuncture / Unknown 10/21/2025 8:45 AM EST 10/21/2025 10:33 AM EST us Janice Núñez MD LAB BLOOD ORDERABLES Final Resul t [facility] [address] [place] [address], [place] [phone] * (ABNORMAL) Urinalysis with reflex microscopic (10/16/2025 12:00 AM EST) Only the most recent of2 resultswithin the time period is included. Specific [place] Urine 1.015 1.003 - 1.030 LAB URINALYSIS - AUTOMATED METHOD 10/16/2025 11:46 AM [facility] pH, Urine 7.5 5.0 - 8.0 pH LAB URINALYSIS - AUTOMATED METHOD 10/16/2025 11:46 AM [facility] Leukocytes, Urine Large(A) Negative LAB URINALYSIS - AUTOMATED METHOD 10/16/2025 11:46 AM [facility] Nitrite, Urine Negative Negative LAB URINALYSIS - AUTOMATED METHOD 10/16/2025 11:46 AM [facility] Protein, Urine 100(A) <=Trace mg/dL LAB URINALYSIS - AUTOMATED METHOD 10/16/2025 11:46 AM [facility] Glucose, Urine Negative Negative mg/dL LAB URINALYSIS - AUTOMATED METHOD 10/16/2025 11:46 AM [facility] Ketones, Urine Negative Negative mg/dL LAB URINALYSIS - AUTOMATED METHOD 10/16/2025 11:46 AM [facility] Urobilinogen , Urine 0.2 0.2 - 1.0 mg/dL LAB URINALYSIS - AUTOMATED METHOD 10/16/2025 11:46 AM [facility] Bilirubin, Urine Negative Negative LAB URINALYSIS - AUTOMATED METHOD 10/16/2025 11:46 AM [facility] Blood, Urine Moderate(A) Negative LAB URINALYSIS - AUTOMATED METHOD 10/16/2025 11:46 AM [facility] RBC, Urine 20(H) 0 - 4 /HPF 10/16/2025 11:46 AM [facility] WBC, Urine 30(H) 0 - 4 /HPF 10/16/2025 11:46 AM [facility] Squamous Epithelial, Urine 2 0 - 60 /LPF 10/16/2025 11:46 AM [facility] Non-Squamous Epithelial, Urine 2-5 Transitional epithelial cells. /LPF 10/16/2025 11:46 AM [facility] Bacteria, Urine Moderate(A) Negative /HPF 10/16/2025 11:46 AM [facility] Urine Urine specimen from urethra / Unknown Non-blood Collection / Unknown 10/16/2025 10/16/2025 10:00 AM EST us Janice Núñez MD LAB URINE ORDERABLES Final Resul t [facility] [address] [place] [address], * (ABNORMAL) Culture urine (10/16/2025 12:00 AM EST) Only the most recent of2 resultswithin the time period is included. Culture, Urine 50,000-100,000 CFU/mL Klebsiella aerogenes(A) SERGIO 10/18/2025 10:36 AM EST [facility] Comment: This is an [...] MICROBIOLOGY - GENERAL ORDER KANE Final Result [facility]) [facility] [address] [place] [address], * PET CT Skull to Mid Thigh [...] Signed Date: 10/15/2025 14:01 ET Workstation ID: [id number] Transcribed By: Self Edit Transcribed Date: 10/15/2025 [...] Signed Date: 10/15/2025 14:01 ET Workstation ID: [id number] Transcribed By: Self Edit Transcribed Date: 10/15/2025 13:25 ET us Lashanda Mcgill DO IMG NM PROCEDURES Fin al Result * ECG-Annotated (09/07/2025) us Provider Onbase MD ECG ORDERABLES Final Result * (ABNORMAL) Lipid panel with reflex to direct LDL (09/06/2025 6:02 AM EDT) Cholesterol 239(H) 0 - 200 mg/dL LAB CHEMISTRY METHOD [facility]/06[facility]2025 1[facility]02 PM [facility] Triglycerides 99 0 - 150 mg/dL LAB CHEMISTRY METHOD 09/06/2025 1:02 PM [facility] HDL 98 >=40 mg/dL LAB CHEMISTRY METHOD 09/06/2025 1:02 PM [facility] LDL Calculated 121(H) 0 - 100 mg/dL LAB CHEMISTRY METHOD 09/06/2025 1:02 PM [facility] Comment:Estimated LDL Calcul ated using equation: Total cholesterol - HDL cholesterol - (Triglycerides/5) VLDL Cholesterol Artur 19.8 mg/dL LAB CHEMISTRY METHOD 09/06/2025 1:02 PM [facility] Non HDL Chol. (LDL+VLDL) 141 <145 mg/dL LAB CHEMISTRY METHOD 09/06/2025 1:02 PM [facility] Chol/HDL Ratio 2.4 0.0 - 4.4 LAB CHEMISTRY METHOD 09/06/2025 1:02 PM [facility] Blood Blood sample taken from central line / Unknown Venipuncture / Unknown 09/06/2025 6:02 AM EDT 09/06/2025 6:18 AM EDT us Sathish Erwin MD LAB BLOOD ORDERABLES Final Re sult [facility] [address] [place] [address], * (ABNORMAL) CBC auto differential (09/06/2025 6:02 AM EDT) Only the most recent of2 resultswithin the time period is included. WBC 3.5(L) 4.8 - 10.8 K/mcL LAB HEMETOLOGY METHOD 09/06/2025 6:37 AM EDT [facility] RBC 3.80 3.80 - 4.80 M/mcL LAB HEMETOLOGY METHOD 09/06/2025 6:37 AM EDT [facility] Hemoglobin 10.6(L) 11.5 - 16.0 g/dL LAB HEMETOLOGY METHOD 09/06/2025 6:37 AM EDT [facility] Hematocrit 35.9 35.0 - 47.0 % LAB HEMETOLOGY METHOD 09/06/2025 6:37 [facility] MCV 94.2 79.0 - 98.0 FL LAB HEMETOLOGY METHOD 09/06/2025 6:37 AM EDT [facility] MCH 27.8 27.0 - 32.0 pcg LAB HEMETOLOGY METHOD 09/06/2025 6:37 [facility] MCHC 29.5(L) 32.0 - 37.0 g/dL LAB HEMETOLOGY METHOD 09/06/2025 6:37 [facility] RDW 15.9(H) 11.0 - 15.0 % LAB HEMETOLOGY METHOD 09/06/2025 6:37 AM EDT [facility] Platelets 332 130 - 400 K/mcL LAB HEMETOLOGY METHOD 09/06/2025 6:37 AM EDT [facility] MPV 9.2 7.0 - 11.0 FL LAB HEMETOLOGY METHOD 09/06/2025 6:37 [facility] NRBC 0.0 <1.0 % LAB HEMETOLOGY METHOD 09/06/2025 6:37 AM EDT [facility] NRBC Absolute 0.00 <0.10 K/[facility] LAB HEMETOLOGY METHOD 09/06/2025 6:37 AM EDT [facility] Neutrophils Relative 64.7 % LAB HEMETOLOGY METHOD 09/06/2025 6:37 AM [facility] Lymphocytes Relative 17.1 % LAB HEMETOLOGY METHOD 09/06/2025 6:37 [facility] Monocytes Relative 14.2 % LAB HEMETOLOGY METHOD 09/06/2025 6:37 AM [facility] Eosinophils Relative 1.4 % LAB HEMETOLOGY METHOD 09/06/2025 6:37 AM [facility] Basophils Relative 1.2 % LAB HEMETOLOGY METHOD 09/06/2025 6:37 AM [facility] Immature Granulocytes Relative 1.4 % LAB HEMETOLOGY METHOD 09/06/2025 6:37 AM EDT [facility] Neutrophils Absolute 2.23 1.50 - 7.00 K/[facility] LAB HEMETOLOGY METHOD 09/06/2025 6:37 AM EDT [facility] Lymphocytes Absolute 0.59(L) 1.00 - 5.00 K/mcL LAB HEMETOLOGY METHOD 09/06/2025 6:37 [facility] Monocytes Absolute 0.49 0.20 - 1.00 K/[facility] LAB HEMETOLOGY METHOD 09/06/2025 6:37 AM EDT [facility] Eosinophils Absolute 0.05 0.00 - 0.50 K/mcL LAB HEMETOLOGY METHOD 09/06/2025 6:37 AM EDT [facility] Basophils Absolute 0.04 0.00 - 0.20 K/mcL LAB HEMETOLOGY METHOD 09/06/2025 6:37 AM EDT [facility] Immature Granulocytes Absolute 0.05(H) 0.00 - 0.03 K/mcL LAB HEMETOLOGY METHOD 09/06/2025 6:37 AM EDT [facility] Blood Blood sample taken from central line / Unknown Venipuncture / Unknown 09/06/2025 6:02 AM EDT 09/06/2025 6:18 AM EDT us Ayaan Fregoso MD LAB BLOOD ORDERABLES Final Re sult [facility] [address] [place] [address], * Lamotrigine level (09/06/2025 6:02 AM EDT) Lamotrigine (Lamictal) Level <0.2 2.0 - 15.0 ug/mL 09/09/2025 11:10 AM EDT [facility] Comment: Lamotrigine toxic level: >20 ug/mL The reference range is not well established. It may be as wide as 1 - 20 ug/mL. If applicable, any drug confirmation testing reported here was developed and the performance characteristics determined by [facility]. This confirmation testing has not been cleared or approved by the FDA. The laboratory is regulated under CLIA as qualified to perform high-complexity testing. This test is used for patient testing purposes. It should not be regarded as investigational or for research. Test performed at [facility], [address] , [place] [address] Emani Noble MD, PhD - Accountant Blood Blood sample taken from central line / Unknown Venipuncture / Unknown 09/06/2025 6:02 AM EDT 09/06/2025 6:17 AM EDT Emani Jackson NP LAB BLOOD ORDERABLES Fin al Result [facility] [address] [place] [address] * Magnesium (09/06/2025 6:02 AM EDT) Only the most recent of2 resultswithin the time period is included. Magnesium 1.9 1.9 - 2.6 mg/dL LAB CHEMISTRY METHOD 09/06/2025 7:07 AM EDT [facility] Blood Blood sample taken from central line / Unknown Venipuncture / Unknown 09/06/2025 6:02 AM EDT 09/06/2025 6:18 AM EDT Ayaan Fregoso MD LAB BLOOD ORDERABLES Final Re sult Performing Organization Address [facility] de Phone Number [facility] [address] [place] [address], [place] [phone] * (ABNORMAL) Ammonia (09/06/2025 6:02 AM EDT) Ammonia 55(H) 11 - 35 mcmol/L LAB CHEMISTRY METHOD 09/06/2025 6:56 AM EDT [facility] Blood Blood sample taken from central line / Unknown Venipuncture / Unknown 09/06/2025 6:02 AM EDT 09/06/2025 6:18 AM EDT Emani Jackson NP LAB BLOOD ORDERABLES Fin al Result Performing Organization Address [facility]/ZIP Co de Phone Number [facility] [address] [place] [address], [place] [phone] * MR Brain wo and w Contrast (09/05/2025 6:21 PM EDT) Anatomical Region Laterality Modality Head and Neck Magnetic Resonan ce 09/05/2025 7:17 PM EDT Impressions 09/05/2025 7:17 PM EDT No acute findings. This document has been electronically signed by: Gonzalo Dorantes MD on 09/05/2025 19:17:56 Narrative 09/05/2025 7:17 PM EDT INDICATION: Confusion, acute, unexplained MR Brain with and without gadolinium Comparison: MR/TN/SR - MR BRAIN WO AND W CONTRAST [...] MR Brain with and without gadolinium Comparison: MR/TN/SR - MR BRAIN WO AND W CONTRAST [...] Dorantes MD on 09/05/2025 19:17:56 Emani Jackson BAG [employer] IM MRI PROCEDURES Final Result * Respiratory virus panel molecular study (09/05/2025 2:10 PM EDT) Adenovirus Detection by PCR Not Detected Not Detected LAB MICROBIOLOGY METHOD 09/05/2025 3:59 PM EDT [facility] Influenza A PCR Not Detected Not Detected LAB MICROBIOLOGY METHOD 09/05/2025 3:59 PM EDT [facility] Influenza B PCR Not Detected Not Detected LAB MICROBIOLOGY METHOD 09/05/2025 3:59 PM EDT [facility] Coronavirus 229E Not Detected Not Detected LAB MICROBIOLOGY METHOD 09/05/2025 3:59 PM EDT [facility] Coronavirus HKU1 Not Detected Not Detected LAB MICROBIOLOGY METHOD 09/05/2025 3:59 PM EDT [facility] Coronavirus OC43 Not Detected Not Detected LAB MICROBIOLOGY METHOD 09/05/2025 3:59 PM EDT [facility] Coronavirus NL63 Not Detected Not Detected LAB MICROBIOLOGY METHOD 09/05/2025 3:59 PM EDT [facility] Parainfluenza Virus 1 Not Detected Not Detected LAB MICROBIOLOGY METHOD 09/05/2025 3:59 PM EDT [facility] Parainfluenza Virus 2 Not Detected Not Detected LAB MICROBIOLOGY METHOD 09/05/2025 3:59 PM EDT [facility] Parainfluenza Virus 3 Not Detected Not Detected LAB MICROBIOLOGY METHOD 09/05/2025 3:59 PM EDT [facility] Parainfluenza Virus 4 Not Detected Not Detected LAB MICROBIOLOGY METHOD 09/05/2025 3:59 PM EDT [facility] RSV PCR Not Detected Not Detected LAB MICROBIOLOGY METHOD 09/05/2025 3:59 PM EDT [facility] Human Metapneumovirus A and B Not Detected Not Detected LAB MICROBIOLOGY METHOD 09/05/2025 3:59 PM EDT [facility] Rhinovirus/Entero virus Not Detected Not Detected LAB MICROBIOLOGY METHOD 09/05/2025 3:59 PM EDT [facility] Bordetella pertussis Not Detected Not Detected LAB MICROBIOLOGY METHOD 09/05/2025 3:59 PM EDT [facility] Bordetella parapertussis Not Detected Not Detected LAB MICROBIOLOGY METHOD 09/05/2025 3:59 PM EDT [facility] Mycoplasma pneumo by PCR Not Detected Not Detected LAB MICROBIOLOGY METHOD 09/05/2025 3:59 PM EDT [facility] Chlamydia pneumoniae Not Detected Not Detected LAB MICROBIOLOGY METHOD 09/05/2025 3:59 PM EDT [facility] SARS COV-2 Not Detected Not Detected LAB MICROBIOLOGY METHOD 09/05/2025 3:59 PM EDT [facility] Swab Both anterior nares / Unknown Non-blood Collection / Unknown 09/05/2025 2:10 PM EDT 09/05/2025 2:18 PM EDT Narrative [facility] - 09/05/2025 3:59 PM EDT Testing was performed using the [employer] Respiratory Pathogen PCR Assay. All results must [...] MICROBIOLOGY - GENER AL ORDERABLES Final Result [facility] [address] [place] [address], * (ABNORMAL) POCT Glucose, blood (09/05/2025 12:33 PM EDT) Glucose POCT 122(H) 70 - 100 mg/dL 09/05/2025 12:33 PM EDT [facility] Blood Capillary blood specimen / Unknown 09/05/2025 12:33 PM EDT 09/05/2025 12:35 PM EDT Ayaan Fregoso MD LAB POINT OF CARE TE ST DOCKED DEVICE UNSOLICITED RESULTS Final Result Performing Organization Address [facility]/ZIP Co de Phone Number [facility] [address] [place] [address], [place] [phone] * (ABNORMAL) Venous blood gas (09/05/2025 12:33 PM EDT) pH, Feliz 7.35 7.32 - 7.42 pH 09/05/2025 12:44 PM EDT [facility] pCO2, Feliz 93(HH) 41 - 51 mmHg 09/05/2025 12:44 PM EDT [facility] pO2, Feliz 43(H) 25 - 40 mmHg 09/05/2025 12:44 PM EDT [facility] HCO3, Venous 40.5(H) 22.0 - 26.0 mmol/L 09/05/2025 12:44 PM EDT [facility] O2 Sat, Feliz 74.3 % 09/05/2025 12:44 PM EDT [facility] Base Excess, Feliz 20.8(H) -2.0 - 2.0 mmol/L 09/05/2025 12:44 PM EDT [facility] Blood Venous blood specimen / Unknown Venipuncture / Unknown 09/05/2025 12:33 PM EDT 09/05/2025 12:38 PM EDT Ayaan Fregoso MD LAB BLOOD ORDERABLES Final Re sult [facility] [address] [place] [address], * XR Chest 1 View (09/05/2025 12:28 [...] Signed Date: 09/05/2025 13:13 ET Workstation ID: [id number] Transcribed By: Self Edit Transcribed Date: 09/05/2025 [...] Signed Date: 09/05/2025 13:13 ET Workstation ID: [id number] Transcribed By: Self Edit Transcribed Date: 09/05/2025 [...] ED Physician in the absence of a spinning machine operator: yes Interpretation: Interpretation: normal Details: Sinus tachycardia with a ventricular rate of 101 bpm. Normal TN, QRS, QTc, axis. No acute ischemic changes us Glenroy Paez MD ECG ORDERABLES Final Result * Troponin I high sensitivity (NOW and then in 1 hour) (09/05/2025 11:20 AM EDT) [facility] High Sensitivity Troponin I 10 <=54 ng/L LAB CHEMISTRY METHOD 09/05/2025 12:11 PM EDT [facility] Blood Venous blood specimen / Unknown Venipuncture / Unknown 09/05/2025 11:20 AM EDT 09/05/2025 11:38 AM EDT Narrative [facility] - 09/05/2025 12:11 PM EDT High levels of biotin in samples may falsely decrease hsTroponin values. Use caution when interpreting hsTroponin results in patients taking biotin who exhibit renal impairment (eGFR <60) or in patients taking more than 20 mg/day of biotin. Glenroy Paez MD LAB BLOOD ORDERABLES Final Res ult Performing Organization Address City/[facility]/ZIP Co de Phone Number [facility] [address] [place] [address], [place] [phone] * Activated partial thromboplastin time (09/05/2025 11:20 AM EDT) [facility] aPTT 37.4 24.1 - 39.3 sec LAB COAGULATION METHOD 09/05/2025 11:53 AM EDT [facility] Blood Venous blood specimen / Unknown Venipuncture / Unknown 09/05/2025 11:20 AM EDT 09/05/2025 11:38 AM EDT Glenroy Paez MD LAB BLOOD ORDERABLES Final Res ult [facility] [address] [place] [address], [place] [phone] * (ABNORMAL) Prothrombin time with INR (09/05/2025 11:20 AM EDT) [facility] Protime 14.3(H) 10.6 - 13.9 sec LAB COAGULATION METHOD 09/05/2025 11:52 AM EDT [facility] INR 1.1 LAB COAGULATION METHOD 09/05/2025 11:52 AM EDT [facility] Blood Venous blood specimen / Unknown Venipuncture / Unknown 09/05/2025 11:20 AM EDT 09/05/2025 11:38 AM EDT Glenroy Paez MD LAB BLOOD ORDERABLES Final Res ult Performing Organization Address [facility]/ZIP Co de Phone Number [facility] [address] [place] [address], [place] [phone] * C-reactive protein (09/05/2025 11:20 AM EDT) C-Reactive Protein 0.42 <=0.50 mg/dL LAB CHEMISTRY METHOD 09/05/2025 2:40 PM EDT [facility] Blood Venous blood specimen / Unknown Venipuncture / Unknown 09/05/2025 11:20 AM EDT 09/05/2025 11:38 AM EDT Ayaan Fregoso MD LAB BLOOD ORDERABLES Final Re sult Performing Organization Address [facility]/ZIP Co de Phone Number [facility] [address] [place] [address], [place] [phone] * Hepatic function panel (09/05/2025 11:20 AM EDT) Total Protein 6.7 6.0 - 8.0 g/dL LAB CHEMISTRY METHOD 09/05/2025 2:40 PM EDT [facility] Albumin 3.6 3.2 - 5.0 g/dL LAB CHEMISTRY METHOD 09/05/2025 2:40 PM EDT [facility] Total Bilirubin 0.3 0.0 - 1.4 mg/dL LAB CHEMISTRY METHOD 09/05/2025 2:40 PM EDT [facility] Bilirubin, Direct 0.1 0.0 - 0.3 mg/dL LAB CHEMISTRY METHOD 09/05/2025 2:40 PM EDT [facility] Bilirubin, Indirect 0.2 0.0 - 1.1 mg/dL LAB CHEMISTRY METHOD 09/05/2025 2:40 PM EDT [facility] ALT (SGPT) 22 10 - 60 unit/L LAB CHEMISTRY METHOD 09/05/2025 2:40 PM EDT [facility] AST (SGOT) 20 10 - 42 unit/L LAB CHEMISTRY METHOD 09/05/2025 2:40 PM EDT [facility] Alkaline Phosphatase 74 42 - 121 unit/L LAB CHEMISTRY METHOD 09/05/2025 2:40 PM EDT [facility] Blood Venous blood specimen / Unknown Venipuncture / Unknown 09/05/2025 11:20 AM EDT 09/05/2025 11:38 AM EDT us Ayaan Fregoso MD LAB BLOOD ORDERABLES Final Re sult [facility] [address] [place] [address], * ECG 12 lead (09/05/2025 11:11 AM EDT) Ventricular Rate ECG 101 BPM GEMUSE Atrial Rate 101 BPM GEMUSE P-R Interval 180 ms GEMUSE QRS Duration 86 ms GEMUSE Q-T Interval 318 ms GEMUSE QTc 412 ms GEMUSE P Wave Flushing 91 degrees GEMUSE R Flushing 70 degrees GEMUSE T Flushing 31 degrees GEMUSE ECG Interpretation Sinus tachycardia [...] Signed Date: 09/05/2025 10:52 ET Workstation ID: [id number] Transcribed By: Self Edit Transcribed Date: 09/05/2025 10:46 ET Narrative 09/05/2025 10:52 AM EDT INDICATION: Generalized weakness, slurred speech, dizziness, headache Technique: Axial images were obtained from the skull base to the vertex without contrast enhancement. Coronal and sagittal reformats obtained. Scanner: [employer]ed 64 slice VCT Dose reduction technique: ASIR [...] enhancement. Coronal and sagittal reformats obtained. Scanner: [employer] 64 slice VCT Dose reduction technique: ASIR [...] Signed Date: 09/05/2025 10:52 ET Workstation ID: [id number] Transcribed By: Self Edit Transcribed Date: 09/05/2025 [...] Signed Date: 09/05/2025 11:59 ET Workstation ID: [id number] Transcribed By: Self Edit Transcribed Date: 09/05/2025 [...] reconstructions performed on a computer workstation. Scanner: [employer] 64slice VCT Dose reduction technique: ASIR (Adaptive [...] reconstructions performed on a computer workstation. Scanner: [employer] 64slice VCT Dose reduction technique: ASIR (Adaptive [...] Patent left posterior communicating artery joins left [id number] to form the left posterior cerebral artery. [...] Signed Date: 09/05/2025 11:59 ET Workstation ID: [id number] Transcribed By: Self Edit Transcribed Date: 09/05/2025 11:46 ET Glenroy Paez MD IMG CT PROCEDURES Final Result * Colonoscopy (04/27/2024) Colonoscopy No Interpretation , Abstracted Anatomical Region Laterality Modality Other Historical Provider HEALTH MAINTENANCE Final Result * Depression Screening (04/16/2024) Depression Screening Abstracted Historical Provider HEALTH MAINTENANCE Final Result * LUIS ARMANDO SCREENING DIGITAL (03/22/2024 8:50 AM EDT) Anatomical Region Laterality Modality Mammography 03/21/2024 3:07 PM EDT Narrative 03/22/2024 8:50 AM EDT [facility] Diagnostic Imaging Department [address] [place] [address] Patient: DENISA VERDUZCO /Age/Sex: 1955 - 68 - F Unit#: [id number] Location/Status: SPDIMAM/REG CLI Mnemonic/Ordering Site: [facility] Ordering Physician: YANN MANZANARES Luis Armando Screening Digital - 03/21/24 - Report Status:Signed EXAM: [facility] Screening Digital EXAM DATE AND TIME: 03/21/2024 3:49 PM HISTORY: Screening. Left breast biopsy in 2016, pathology benign. COMPARISON: 02/16/23, 09/21/19, 09/18/18, 09/15/17 TECHNIQUE: Bilateral digital breast tomosynthesis was performed in the CC and MLO projections. Computer aided detection with [employer] 3D 3.1 was employed. TISSUE DENSITY: [...] Procedure Note Erica Treadwell MD - 07/16/2024 [facility] Diagnostic Imaging Department [address] [place] [address] Patient: DENISA VERDUZCO /Age/Sex: 1955 - 68 - F Unit#: [id number] Location/Status: SPDIMAM/REG CLI Mnemonic/Ordering Site: [facility] Ordering Physician: YANN MANZANARES [facility] Screening Digital - 03/21/24 - Report Status:Signed EXAM: [facility] Screening Digital EXAM DATE AND TIME: 03/21/2024 3:49 PM HISTORY: Screening. Left breast biopsy in 2016, pathology benign. COMPARISON: 02/16/23, 09/21/19, 09/18/18, 09/15/17 TECHNIQUE: Bilateral digital breast tomosynthesis was performed in the CCand MLO projections. Computer aided detection with [employer] 3D 3.1was employed. TISSUE DENSITY: b. [...] MD IMG BI PROCEDURES Final Result * [facility] DEXA AXIAL SKELETON (03/22/2024 8:14 AM EDT) Anatomical Region Laterality Modality Mammography 03/21/2024 3:07 PM EDT Narrative 03/22/2024 8:14 AM EDT [facility] Diagnostic Imaging Department [address] [place] [address] Patient: DAXDENISA./Age/Sex: 1955 - 68 - F Unit#: [id number] Location/Status: [facility]/REG CLI Mnemonic/Ordering Site: [facility] Ordering Physician: YANN MANZANARES [facility] Dexa Axial Skeleton - 03/21/24 - [...] probability of hip fracture of 7.1%. Code 12574 Dictating Physician: MILTON ORTEGA MD Electronically Signed by: MILTON ORTEGA MD Dic Date/Time: 03/22/24812 Sign date/Time: 03/22/24813 Procedure Note Milton Ortega MD - 07/16/2024 [facility] Diagnostic Imaging Department [address] [place] [address] Patient: DENISA VERDUZCO./Age/Sex: 1955 - 68 - F Unit#: [id number] Location/Status: SPDIMAM/REG CLI Mnemonic/[facility] Ordering Physician: YANN MANZANARES [facility] Dexa Axial Skeleton - 03/21/24 - [...] density of the femurs bilaterally is 0.912 gm/[id number] is 90% of that of young normals [...] probability of hip fracture of 7.1%. Code 38055 Dictating Physician: MILTON ORTEGA MD Electronically Signed by: MILTON ORTEGA MD Dic Date/Time: 03/22/24812 Sign date/Time: 03/22/2414 Yann Manzanares MD IM BI PROCEDURES Final Result * Falls Risk Assessment (02/09/2024) [facility] Falls Risk Assessment Abstracted Historical Provider HEALTH MAINTENANCE Final Result * Hepatitis C Screening (02/09/2024) [facility] HM Hepatitis C Screening Abstracted us Historical Provider HEALTH MAINTENANCE Final Result from Last 3 Months or Most Recently Relevant to Health Maintenance Insurance [employer] Advance Directives Documents on File Type Date Recorded Patient Hospice Home Care Coordinator Expl anation Advance Directives and Living Will [...] DIRECTIVE Health Care Decision (hx) 12/23/2015 AD VEAR DIRECTIVE Health Care Decision (hx) 12/23/2015 AD [...] Relationship Healthcare Agent Relationship Communication Heather Calab[facility] Health Care Agent Care Teams Wire Spinner Relationship Specialty Start Date End Date Kinjal Barron FNP [address] [place] [address] PCP - General Family Medicine 03/06/25
--- OUTSIDE RECORDS SUMMARY | 2025-11-22 15:08 | XMS_ITS | Encounter Summary ---
Author Organization [facility] Address [address] [place] [address] Care Team Providers Care Nutrition Associate Name Role Phone Kinjal Barron [employer] Primary Care Provid er Encounter Details Date Type Department Care Team (Late st Contact Info) Description 09/17/2025 Lab Requisition [facility] - Main Lab [address] [place] [address] Janice Núñez MD [address] [place], [place] [id number] Malignant neoplasm of unspecified part of left [...] 02/18/2026 10:30 AM EDT Office Visit [facility] Hematology Oncology [address] [place] [phone] Lashanda Mcgill, [address] [place] [address] documented as of this encounter Procedures Procedure [...] mmol/L LAB CHEMISTRY METHOD 09/18/2025 12:44 PM [facility] Potassium 4.1 3.5 - 5.5 mmol/L LAB CHEMISTRY METHOD 09/18/2025 12:44 PM [facility] Chloride 93(L) 96 - 110 mmol/L LAB CHEMISTRY METHOD 09/18/2025 12:44 PM [facility] CO2 39(H) 21 - 32 mmol/L LAB CHEMISTRY METHOD 09/18/2025 12:44 PM [facility] Anion Gap 7 3 - 11 LAB CHEMISTRY METHOD 09/18/2025 12:44 PM [facility] Glucose 64(L) 70 - 100 mg/dL LAB CHEMISTRY METHOD 09/18/2025 12:44 PM [facility] BUN 15 5 - 25 mg/dL LAB CHEMISTRY METHOD 09/18/2025 12:44 PM [facility] Creatinine 0.86 0.50 - 1.10 mg/dL LAB CHEMISTRY METHOD 09/18/2025 12:44 PM [facility] eGFR 72 >=60 mL/min/1. 73m2 LAB CHEMISTRY METHOD 09/18/2025 12:44 PM [facility] Comment:Calculation based on the Chronic Kidney Disease Epidemiology Collaboration (CKD-EPI) equation refit without adjustment for race. BUN/Creatinine Ratio 17.4 LAB CHEMISTRY METHOD 09/18/2025 12:44 PM EDT [facility] Calcium 9.9 8.5 - 10.5 mg/dL LAB CHEMISTRY METHOD 09/18/2025 12:44 PM T [facility] Blood Venous blood specimen / Unknown Venipuncture / Unknown 09/18/2025 5:01 AM EDT 09/18/2025 10:13 AM EDT us Janice Núñez MD LAB BLOOD ORDERABLES Final Resul t [facility] [address] [place] [address], [place] [phone] * (ABNORMAL) Complete blood count (09/18/2025 5:01 AM EDT) WBC 7.6 4.8 - 10.8 K/mcL LAB HEMETOLOGY METHOD 09/18/2025 11:08 AM [facility] RBC 3.60(L) 3.80 - 4.80 M/mcL LAB HEMETOLOGY METHOD 09/18/2025 11:08 AM [facility] Hemoglobin 10.3(L) 11.5 - 16.0 g/dL LAB HEMETOLOGY METHOD 09/18/2025 11:08 AM [facility] Hematocrit 35.4 35.0 - 47.0 % LAB HEMETOLOGY METHOD 09/18/2025 11:08 AM [facility] MCV 97.3 79.0 - 98.0 FL LAB HEMETOLOGY METHOD 09/18/2025 11:08 AM [facility] MCH 28.3 27.0 - 32.0 pcg LAB HEMETOLOGY METHOD 09/18/2025 11:08 AM [facility] MCHC 29.1(L) 32.0 - 37.0 g/dL LAB HEMETOLOGY METHOD 09/18/2025 11:08 AM EDT [facility] RDW 16.0(H) 11.0 - 15.0 % LAB HEMETOLOGY METHOD 09/18/2025 11:08 AM EDT [facility] Platelets 400 130 - 400 K/mcL LAB HEMETOLOGY METHOD 09/18/2025 11:08 AM EDT [facility] MPV 9.6 7.0 - 11.0 FL LAB HEMETOLOGY METHOD 09/18/2025 11:08 AM EDT [facility] NRBC 0.0 <1.0 % [facility] 09/18/2025 11:08 AM EDT [facility] NRBC Absolute 0.00 <0.10 K/mcL LAB HEMETOLOGY METHOD 09/18/2025 11:08 AM EDT [facility] Blood Venous blood specimen / Unknown Venipuncture / Unknown 09/18/2025 5:01 AM EDT 09/18/2025 10:13 AM EDT Janice Núñez MD LAB BLOOD ORDERABLES Final Resul t [facility] [address] [place] [address], documented in this encounter Visit Diagnoses Diagnosis Malignant neoplasm of unspecified part of left bronchus or lung (CMS/HCC V24, CMS/HCC V28) Chronic respiratory failure with hypercapnia (CMS/HCC V24, CMS/HCC V28) documented in this encounter Additional Health Concerns Assessment Noted Time PHQ-9 Depression Total Score: 1 07/19/20 25 5:04 PM EDT documented as of this encounter Care Teams Nutrition Associate Relationship Specialty Start Date End Date Kinjal Barron FNP [address] [place] [phone] PCP - General Family Medicine 03/06/25 documented as of this encounter
--- OUTSIDE RECORDS SUMMARY | 2025-11-22 15:08 | XMS_ITS | Encounter Summary ---
Author Organization [facility] Address [address] [place] [address] Care Team Providers Care World Designer Name Role Phone Kinjal Barron CONFLICTS ANALYST Primary Care Provid er Encounter Details Date Type Department Care Team (Late st Contact Info) Description 08/20/[address] [facility] - Main Lab [address] [place] [address] Janice Núñez MD [address] [place], [place] [phone] Malignant neoplasm of unspecified part of left [...] Visit [facility] Hematology Oncology [address] [place] [phone] Lashanda Mcgill, [address] [place] [address] documented as of this encounter Procedures Procedure Name Priority Date/Time Associated Diagnosis Comments VITAMIN D 25 HYDROXY Routine 08/20/2025 4:50 AM EDT Malignant neoplasm of unspecified part of left bronchus or lung (CMS/HCC V24, CMS/HCC V28) Respiratory failure, unspecified, unspecified whether with hypoxia or hypercapnia (CMS/HCC V24, CMS/HCC V28) 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 COMPLETE BLOOD COUNT Routine 08/20/2025 4:50 AM EDT Malignant neoplasm of unspecified part of left bronchus or lung (CMS/HCC V24, CMS/HCC V28) Respiratory failure, unspecified, unspecified whether with hypoxia or hypercapnia (CMS/HCC V24, CMS/HCC V28) 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 THYROID STIMULATING HORMONE Routine [...] or hypercapnia (CMS/HCC V24, CMS/HCC V28) 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 FOLATE Routine 08/20/2025 4:50 AM EDT Malignant neoplasm of unspecified part of left bronchus or lung (CMS/HCC V24, CMS/HCC V28) Respiratory failure, unspecified, unspecified whether with hypoxia or hypercapnia (CMS/HCC V24, CMS/HCC V28) 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 VITAMIN B12 Routine 08/20/2025 [...] LAB CHEMISTRY METHOD 08/20/2025 12:17 PM EDT [facility] Blood Venous blood specimen / Unknown Venipuncture / Unknown 08/20/2025 4:50 AM EDT 08/20/2025 9:32 AM EDT us Janice Núñez MD LAB BLOOD ORDERABLES Final Resul t Performing Organization Address City/[facility]/ZIP Co de Phone Number [facility] [address] [place] [address], [place] [phone] * Vitamin B12 (08/20/2025 4:50 AM EDT) Pathologist [facility] Vitamin B-12 592 250 - 900 pcg/mL LAB CHEMISTRY METHOD 08/20/2025 11:03 AM EDT [facility] Blood Venous blood specimen / Unknown Venipuncture / Unknown 08/20/2025 4:50 AM EDT 08/20/2025 9:32 AM EDT us Janice Núñez MD LAB BLOOD ORDERABLES Final Resul t Performing Organization Address City/[facility]/ZIP Co de Phone Number [facility] [address] [place] [address], [place] [phone] * Hemoglobin A1c (08/20/2025 4:50 AM EDT) [facility] Hemoglobin A1C 5.8 <6.5 % LAB CHEMISTRY METHOD 08/20/2025 12:16 PM EDT [facility] Mean Bld Glu Estim. 120 mg/dL LAB CHEMISTRY METHOD 08/20/2025 12:16 PM EDT [facility] Blood Venous blood specimen / Unknown Venipuncture / Unknown 08/20/2025 4:50 AM EDT 08/20/2025 9:32 AM EDT us Janice Núñez MD LAB BLOOD ORDERABLES Final Resul t [facility] [address] [place] [address], [place] [phone] * Thyroid stimulating hormone (08/20/2025 4:50 AM EDT) [facility] TSH 2.01 0.40 - 4.00 mcIU/mL LAB CHEMISTRY METHOD 08/20/2025 12:18 PM EDT [facility] Blood Venous blood specimen / Unknown Venipuncture / Unknown 08/20/2025 4:50 AM EDT 08/20/2025 9:32 AM EDT us Janice Núñez MD LAB BLOOD ORDERABLES Final Resul t [facility] [address] [place] [address], [place] [phone] * (ABNORMAL) Folate (08/20/2025 4:50 AM EDT) [facility] Folate 19.1(H) 2.8 - 17.0 ng/ml LAB CHEMISTRY METHOD 08/20/2025 11:03 AM EDT [facility] Blood Venous blood specimen / Unknown Venipuncture / Unknown 08/20/2025 4:50 AM EDT 08/20/2025 9:32 AM EDT us Janice Núñez MD LAB BLOOD ORDERABLES Final Resul t [facility] [address] [place] [address], [place] [phone] * (ABNORMAL) Comprehensive metabolic panel (08/20/2025 4:50 AM EDT) Sodium 140 133 - 145 mmol/L LAB CHEMISTRY METHOD 08/20/2025 11:04 AM [facility] Potassium 3.3(L) 3.5 - 5.5 mmol/L LAB CHEMISTRY METHOD 08/20/2025 11:04 AM [facility] Chloride 102 96 - 110 mmol/L LAB CHEMISTRY METHOD 08/20/2025 11:04 AM [facility] CO2 31 21 - 32 mmol/L LAB CHEMISTRY METHOD 08/20/2025 11:04 AM [facility] Anion Gap 7 3 - 11 LAB CHEMISTRY METHOD 08/20/2025 11:04 AM [facility] Glucose 81 70 - 100 mg/dL LAB CHEMISTRY METHOD 08/20/2025 11:04 AM [facility] BUN 19 5 - 25 mg/dL LAB CHEMISTRY METHOD 08/20/2025 11:04 AM [facility] Creatinine 0.78 0.50 - 1.10 mg/dL LAB CHEMISTRY METHOD 08/20/2025 11:04 AM [facility] eGFR 81 >=60 mL/min/1. 73m2 LAB CHEMISTRY METHOD 08/20/2025 11:04 AM [facility] Comment:Calculation based on the Chronic Kidney Disease Epidemiology Collaboration (CKD-EPI) equation refit without adjustment for race. BUN/Creatinine Ratio 24.4 LAB CHEMISTRY METHOD 08/20/2025 11:04 AM [facility] Calcium 8.4(L) 8.5 - 10.5 mg/dL LAB CHEMISTRY METHOD 08/20/2025 11:04 AM EDT [facility] AST (SGOT) 18 10 - 42 unit/L LAB CHEMISTRY METHOD 08/20/2025 11:04 AM [facility] ALT (SGPT) 29 10 - 60 unit/L LAB CHEMISTRY METHOD 08/20/2025 11:04 AM EDT [facility] Alkaline Phosphatase 78 42 - 121 unit/L LAB CHEMISTRY METHOD 08/20/2025 11:04 AM T [facility] Total Protein 5.9(L) 6.0 - 8.0 g/dL LAB CHEMISTRY METHOD 08/20/2025 11:04 AM [facility] Albumin 3.2 3.2 - 5.0 g/dL LAB CHEMISTRY METHOD 08/20/2025 11:04 AM [facility] Total Bilirubin 0.1 0.0 - 1.4 mg/dL LAB CHEMISTRY METHOD 08/20/2025 11:04 AM [facility] Blood Venous blood specimen / Unknown Venipuncture / Unknown 08/20/2025 4:50 AM EDT 08/20/2025 9:32 AM EDT us Janice Núñez MD LAB BLOOD ORDERABLES Final Resul t [facility] [address] [place] [address], [place] [phone] * (ABNORMAL) Complete blood count (08/20/2025 4:50 AM EDT) WBC 7.6 4.8 - 10.8 K/mcL LAB HEMETOLOGY METHOD 08/20/2025 9:58 AM EDT [facility] RBC 3.80 3.80 - 4.80 M/mcL LAB HEMETOLOGY METHOD 08/20/2025 9:58 AM [facility] Hemoglobin 10.5(L) 11.5 - 16.0 g/dL LAB HEMETOLOGY METHOD 08/20/2025 9:58 AM [facility] Hematocrit 34.8(L) 35.0 - 47.0 % LAB HEMETOLOGY METHOD 08/20/2025 9:58 AM [facility] MCV 92.1 79.0 - 98.0 FL LAB HEMETOLOGY METHOD 08/20/2025 9:58 AM [facility] MCH 27.8 27.0 - 32.0 pcg LAB HEMETOLOGY METHOD 08/20/2025 9:58 AM [facility] MCHC 30.2(L) 32.0 - 37.0 g/dL LAB HEMETOLOGY METHOD 08/20/2025 9:58 AM [facility] RDW 16.4(H) 11.0 - 15.0 % LAB HEMETOLOGY METHOD 08/20/2025 9:58 AM [facility] Platelets 306 130 - 400 K/mcL LAB HEMETOLOGY METHOD 08/20/2025 9:58 AM [facility] MPV 9.1 7.0 - 11.0 FL LAB HEMETOLOGY METHOD 08/20/2025 9:58 AM [facility] NRBC 0.0 <1.0 % LAB HEMETOLOGY METHOD 08/20/2025 9:58 AM [facility] NRBC Absolute 0.00 <0.10 K/mcL LAB HEMETOLOGY METHOD 08/20/2025 9:58 AM [facility] Blood Venous blood specimen / Unknown Venipuncture / Unknown 08/20/2025 4:50 AM EDT 08/20/2025 9:32 AM EDT us Fahim A Wilton MD LAB BLOOD ORDERABLES Final Resul t [facility] [address] [place] [address], documented in this encounter Visit Diagnoses Diagnosis Malignant neoplasm of unspecified part of left bronchus or lung ([facility] V24, [facility] V28) Respiratory failure, unspecified, unspecified whether with hypoxia or hypercapnia ([facility] V24, [facility] V28) 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
--- OUTSIDE RECORDS SUMMARY | 2025-11-22 15:08 | XMS_ITS | Encounter Summary ---
Author Organization [facility] Address [address] [place] [address] Care Team Providers Care Portfolio Administrator Name Role Phone Kinjal Barron CAR SWEEPER Primary Care Provid er Encounter Details Date Type Department Care Team (Late st Contact Info) Description 10/08/2025 Lab Requisition [facility] - Main Lab [address] [place] [address] Janice Núñez MD [address] [place], [place] [phone] Malignant neoplasm of unspecified part of left [...] [facility] Hematology Oncology [address] [place] [phone] Lashanda Mcgill, [address] [place] [address] documented as of this encounter Procedures Procedure [...] mmol/L LAB CHEMISTRY METHOD 10/09/2025 11:49 AM [facility] Potassium 3.6 3.5 - 5.5 mmol/L LAB CHEMISTRY METHOD 10/09/2025 11:49 AM [facility] Chloride 95(L) 96 - 110 mmol/L LAB CHEMISTRY METHOD 10/09/2025 11:49 AM [facility] CO2 42(HH) 21 - 32 mmol/L LAB CHEMISTRY METHOD 10/09/2025 11:49 AM [facility] Anion Gap 3 3 - 11 LAB CHEMISTRY METHOD 10/09/2025 11:49 AM [facility] Glucose 89 70 - 100 mg/dL LAB CHEMISTRY METHOD 10/09/2025 11:49 AM [facility] BUN 12 5 - 25 mg/dL LAB CHEMISTRY METHOD 10/09/2025 11:49 AM [facility] Creatinine 0.78 0.50 - 1.10 mg/dL LAB CHEMISTRY METHOD 10/09/2025 11:49 AM [facility] eGFR 81 >=60 mL/min/1. 73m2 LAB CHEMISTRY METHOD 10/09/2025 11:49 AM [facility] Comment:Calculation based on the Chronic Kidney Disease Epidemiology Collaboration (CKD-EPI) equation refit without adjustment for race. BUN/Creatinine Ratio 15.4 LAB CHEMISTRY METHOD 10/09/2025 11:49 AM [facility] Calcium 8.6 8.5 - 10.5 mg/dL LAB CHEMISTRY METHOD 10/09/2025 11:49 AM [facility] Blood Venous blood specimen / Unknown Venipuncture / Unknown 10/09/2025 5:27 AM EST 10/09/2025 10:52 AM EST us Janice Núñez MD LAB BLOOD ORDERABLES Final Resul t [facility] [address] [place] [address], [place] [phone] * (ABNORMAL) Complete blood count (10/09/2025 5:27 AM EST) WBC 6.7 4.8 - 10.8 K/mcL LAB HEMETOLOGY METHOD 10/09/2025 11:05 AM [facility] RBC 3.10(L) 3.80 - 4.80 M/mcL LAB HEMETOLOGY METHOD 10/09/2025 11:05 AM [facility] Hemoglobin 8.9(L) 11.5 - 16.0 g/dL LAB HEMETOLOGY METHOD 10/09/2025 11:05 AM [facility] Hematocrit 31.3(L) 35.0 - 47.0 % LAB HEMETOLOGY METHOD 10/09/2025 11:05 AM [facility] MCV 100.0(H) 79.0 - 98.0 FL LAB HEMETOLOGY METHOD 10/09/2025 11:05 AM [facility] MCH 28.4 27.0 - 32.0 pcg LAB HEMETOLOGY METHOD 10/09/2025 11:05 AM [facility] MCHC 28.4(L) 32.0 - 37.0 g/dL LAB HEMETOLOGY METHOD 10/09/2025 11:05 AM EST [facility] RDW 16.5(H) 11.0 - 15.0 % LAB HEMETOLOGY METHOD 10/09/2025 11:05 AM [facility] Platelets 415(H) 130 - 400 K/mcL LAB HEMETOLOGY METHOD 10/09/2025 11:05 AM [facility] MPV 9.4 7.0 - 11.0 FL LAB HEMETOLOGY METHOD 10/09/2025 11:05 AM [facility] NRBC 0.0 <1.0 % LAB HEMETOLOGY METHOD 10/09/2025 11:05 AM [facility] NRBC Absolute 0.00 <0.10 K/mcL LAB HEMETOLOGY METHOD 10/09/2025 11:05 AM [facility] Blood Venous blood specimen / Unknown Venipuncture / Unknown 10/09/2025 5:27 AM EST 10/09/2025 10:53 AM EST us Janice Núñez MD LAB BLOOD ORDERABLES Final Resul t [facility] [address] [place] [address], documented in this encounter Visit Diagnoses Diagnosis Malignant neoplasm of unspecified part of left bronchus or lung (CMS/HCC V24, CMS/HCC V28) Chronic respiratory failure with hypercapnia (CMS/HCC V24, CMS/HCC V28) documented in this encounter Additional Health Concerns Assessment Noted Time PHQ-9 Depression Total Score: 1 07/19/20 25 5:04 PM EDT documented as of this encounter Care Teams Portfolio Administrator Relationship Specialty Start Date End Date Kinjal Barron FNP [address] [place] [phone] PCP - General Family Medicine 03/06/25 documented as of this encounter
--- OUTSIDE RECORDS SUMMARY | 2025-11-22 15:08 | XMS_ITS | Encounter Summary ---
Author Organization [facility] Address [address] [place] [address] Care Team Providers Care Senior Front End Developer Name Role Phone Kinjal Barron FIELD SCOUT Primary Care Provid er Encounter Details Date Type Department Care Team (Late st Contact Info) Description 10/22/2025 Lab Requisition [facility] - Main Lab [address] [place] [address] Janice Núñez MD [address] [place], [place] [phone] Malignant neoplasm of unspecified part of left [...] [facility] Hematology Oncology [address] [place] [phone] Lashanda Mcgill, [address] [place] [address] documented as of this encounter Procedures Procedure [...] 133 - 145 mmol/L 10/23/2025 10:41 AM [facility] Potassium 3.7 3.5 - 5.5 mmol/L 10/23/2025 10:41 AM [facility] Chloride 92(L) 96 - 110 mmol/L 10/23/2025 10:41 AM [facility] CO2 >40(HH) 21 - 32 mmol/L 10/23/2025 10:41 AM [facility] Anion Gap <10 3 - 11 10/23/2025 10:41 AM [facility] Glucose 89 70 - 100 mg/dL 10/23/2025 10:41 AM [facility] BUN 13 5 - 25 mg/dL 10/23/2025 10:41 AM [facility] Creatinine 0.89 0.50 - 1.10 mg/dL 10/23/2025 10:41 AM [facility] eGFR 69 >=60 mL/min/1. 73m2 10/23/2025 10:41 AM [facility] Comment:Calculation based on the Chronic Kidney Disease Epidemiology Collaboration (CKD-EPI) equation refit without adjustment for race. BUN/Creatinine Ratio 14.6 10/23/2025 10:41 AM [facility] Calcium 7.7(L) 8.5 - 10.5 mg/dL 10/23/2025 10:41 AM [facility] Blood Venous blood specimen / Unknown Venipuncture / Unknown 10/23/2025 7:00 AM EST 10/23/2025 9:25 AM EST us Janice Núñez MD LAB BLOOD ORDERABLES Final Resul t [facility] [address] [place] [address], * (ABNORMAL) Complete blood count (10/23/2025 7:00 AM EST) WBC 6.2 4.8 - 10.8 K/mcL LAB HEMETOLOGY METHOD 10/23/2025 9:38 AM [facility] RBC 3.00(L) 3.80 - 4.80 M/[facility] LAB HEMETOLOGY METHOD 10/23/2025 9:38 AM [facility] Hemoglobin 8.2(L) 11.5 - 16.0 g/dL LAB HEMETOLOGY METHOD 10/23/2025 9:38 AM [facility] Hematocrit 29.5(L) 35.0 - 47.0 % LAB HEMETOLOGY METHOD 10/23/2025 9:38 AM [facility] MCV 97.4 79.0 - 98.0 FL LAB HEMETOLOGY METHOD 10/23/2025 9:38 AM [facility] MCH 27.1 27.0 - 32.0 pcg LAB HEMETOLOGY METHOD 10/23/2025 9:38 AM [facility] MCHC 27.8(L) 32.0 - 37.0 g/dL LAB HEMETOLOGY METHOD 10/23/2025 9:38 AM [facility] RDW 15.1(H) 11.0 - 15.0 % LAB HEMETOLOGY METHOD 10/23/2025 9:38 AM EST [facility] Platelets 384 130 - 400 K/mcL LAB HEMETOLOGY METHOD 10/23/2025 9:38 AM EST [facility] MPV 9.2 7.0 - 11.0 FL LAB HEMETOLOGY METHOD 10/23/2025 9:38 AM EST [facility] NRBC 0.0 <1.0 % LAB HEMETOLOGY METHOD 10/23/2025 9:38 AM EST [facility] NRBC Absolute 0.00 <0.10 K/mcL LAB HEMETOLOGY METHOD 10/23/2025 9:38 AM [facility] Blood Venous blood specimen / Unknown Venipuncture / Unknown 10/23/2025 7:00 AM EST 10/23/2025 9:25 AM EST us Janice Núñez MD LAB BLOOD ORDERABLES Final Resul t [facility] [address] [place] [address], documented in this encounter Visit Diagnoses Diagnosis Malignant neoplasm of unspecified part of left bronchus or lung (CMS/HCC V24, CMS/HCC V28) Chronic respiratory failure with hypercapnia ([facility]/HCC V24, CMS/HCC V28) documented in this encounter Additional Health Concerns Assessment Noted Time PHQ-9 Depression Total Score: 1 07/19/20 25 5:04 PM EDT documented as of this encounter Care Teams Senior Front End Developer Relationship Specialty Start Date End Date Kinjal Barron FNP [address] [place] [phone] PCP - General Family Medicine 03/06/25 documented as of this encounter
--- OUTSIDE RECORDS SUMMARY | 2025-11-22 15:08 | XMS_ITS | Encounter Summary ---
Author Organization [facility] Address [address] [place] [address] Care Team Providers Care Brake Drum Molder Name Role Phone Kijnal Barron PER DIEM CLERK Primary Care Provid er Encounter Details Date Type Department Care Team (Late st Contact Info) Description 11/15/2025 Lab Requisition [facility] - Main Lab [address] [place] [address] Janice Núñez MD [address] [place], [place] [phone] Hypokalemia Social History Tobacco Use Types Packs/Day [...] Visit [facility] Hematology Oncology [address] [place] [phone] Lashanda Mcgill, DO [address] [place] [address] documented as of this encounter Procedures Procedure Name Priority Date/Time Associated Diagnosis Comments BASIC METABOLIC PANEL Routine 11/15/2025 7:10 AM EST Hypokalemia documented in this encounter Results * (ABNORMAL) Basic metabolic panel (11/15/2025 7:10 AM EST) Sodium 139 133 - 145 mmol/L 11/15/2025 10:20 AM [facility] Potassium 3.5 3.5 - 5.5 mmol/L 11/15/2025 10:20 AM [facility] Chloride 90(L) 96 - 110 mmol/L 11/15/2025 10:20 AM [facility] CO2 >40(HH) 21 - 32 mmol/L 11/15/2025 10:20 AM [facility] Anion Gap <9 3 - 11 11/15/2025 10:20 AM [facility] Glucose 106(H) 70 - 100 mg/dL 11/15/2025 10:20 AM [facility] BUN 19 5 - 25 mg/dL 11/15/2025 10:20 AM [facility] Creatinine 1.14(H) 0.50 - 1.10 mg/dL 11/15/2025 10:20 AM [facility] eGFR 52(L) >=60 mL/min/1. 73m2 11/15/2025 10:20 AM [facility] Comment:Calculation based on the Chronic Kidney Disease Epidemiology Collaboration (CKD-EPI) equation refit without adjustment for race. BUN/Creatinine Ratio 16.7 11/15/2025 10:20 AM [facility] Calcium 8.9 8.5 - 10.5 mg/dL 11/15/2025 10:20 AM [facility] Blood Venous blood specimen / Unknown Venipuncture / Unknown 11/15/2025 7:10 AM EST 11/15/2025 9:23 AM EST us Janice Núñez MD LAB BLOOD ORDERABLES Final Resul t [facility] [address] [place], [place] [address] [phone] documented in this encounter Visit Diagnoses Diagnosis Hypokalemia Hypopotassemia documented in this encounter Additional Health Concerns Assessment Noted Time PHQ-9 Depression Total Score: 1 07/19/20 25 5:04 PM EDT documented as of this encounter Care Teams Brake Drum Molder Relationship Specialty Start Date End Date Kinjal Barron FNP [address] [place] [phone] PCP - General Family Medicine 03/06/25 documented as of this encounter
--- OUTSIDE RECORDS SUMMARY | 2025-11-22 15:08 | XMS_ITS | Encounter Summary ---
Author Organization [facility] Address [address] [place] [address] Care Team Providers Care Director Of Market Research Name Role Phone Kinjal Barron ACOU[employer]ICAL [employer] SUPERVISOR Primary Care Provid er Encounter Details Date Type Department Care Team (Late st Contact Info) Description 09/03/2025 Lab Requisition [facility] - Main Lab [address] [place] [address] Janice Núñez MD [address] [place], [place] [phone] Malignant neoplasm of unspecified part of left [...] Date Author No 07/06/2025 1:10 AM EDT Cehryle Velazquez RN documented in this encounter Plan of Treatment Upcoming Encounters Date Type Department Care Team (Late st Contact Info) Description 02/18/2026 10:30 AM EDT Office Visit [facility] Hematology Oncology [address] [place] [phone] Lashanda Mcgill, [address] [place] [address] documented as of this encounter Procedures Procedure [...] 73m2 LAB CHEMISTRY METHOD 09/04/2025 11:05 AM [facility] Comment:Calculation based on the Chronic Kidney Disease Epidemiology Collaboration (CKD-EPI) equation refit without adjustment for race. BUN/Creatinine Ratio 15.1 LAB CHEMISTRY METHOD 09/04/2025 11:05 AM EDT [facility] Calcium 8.8 8.5 - 10.5 mg/dL LAB CHEMISTRY METHOD [facility] Blood Venous blood specimen / Unknown Venipuncture / Unknown 09/04/2025 6:53 AM EDT 09/04/2025 9:34 AM EDT us Janice Núñez MD LAB BLOOD ORDERABLES Final Resul t [facility] [address] [place] [address], [place] [phone] * (ABNORMAL) Complete blood count (09/04/2025 6:53 AM EDT) WBC 4.1(L) 4.8 - 10.8 K/mcL LAB HEMETOLOGY METHOD 09/04/2025 10:12 AM [facility] RBC 4.00 3.80 - 4.80 M/mcL LAB HEMETOLOGY METHOD 09/04/2025 10:12 AM [facility] Hemoglobin 10.9(L) 11.5 - 16.0 g/dL LAB HEMETOLOGY METHOD 09/04/2025 10:12 AM [facility] Hematocrit 37.5 35.0 - 47.0 % LAB HEMETOLOGY METHOD 09/04/2025 10:12 AM [facility] MCV 94.5 79.0 - 98.0 FL LAB HEMETOLOGY METHOD 09/04/2025 10:12 AM [facility] MCH 27.5 27.0 - 32.0 pcg LAB HEMETOLOGY METHOD 09/04/2025 10:12 AM [facility] MCHC 29.1(L) 32.0 - 37.0 g/dL LAB HEMETOLOGY METHOD 09/04/2025 10:12 AM EDT [facility] RDW 15.9(H) 11.0 - 15.0 % LAB HEMETOLOGY METHOD 09/04/2025 10:12 AM EDT [facility] Platelets 356 130 - 400 K/mcL LAB HEMETOLOGY METHOD 09/04/2025 10:12 AM EDT [facility] MPV 9.4 7.0 - 11.0 FL LAB HEMETOLOGY METHOD 09/04/2025 10:12 AM EDT [facility] NRBC 0.0 <1.0 % LAB HEMETOLOGY METHOD 09/04/2025 10:12 AM EDT [facility] NRBC Absolute 0.00 <0.10 K/mcL LAB HEMETOLOGY METHOD 09/04/2025 10:12 AM EDT [facility] Blood Venous blood specimen / Unknown Venipuncture / Unknown 09/04/2025 6:53 AM EDT 09/04/2025 10:12 AM EDT us Janice Núñez MD LAB BLOOD ORDERABLES Final Resul t [facility] [address] [place] [address], documented in this encounter Visit Diagnoses Diagnosis [...] as of this encounter Care Teams Director Of Market Research Relationship Specialty Start Date End Date Kinjal Barron FNP [address] [place] [phone] PCP - General Family Medicine 03/06/25 documented as of this encounter
--- OUTSIDE RECORDS SUMMARY | 2025-11-22 15:08 | XMS_ITS | Encounter Summary ---
Author Organization [facility] Address [address] [place] [address] Care Team Providers Care Centrifugal Extractor Operator Name Role Phone Kinjal Barron BOOK PACKER Primary Care Provid er Encounter Details Date Type Department Care Team (Late st Contact Info) Description 10/15/2025 Lab Requisition [facility] - Main Lab [address] [facility] [facility] [place] [address] Janice Núñez MD [address] [place], [place] [phone] Malignant neoplasm of unspecified part of left [...] [facility] Hematology Oncology [address] [place] [phone] Lashanda Mcgill, [address] [place] [address] documented as of this encounter Procedures Procedure [...] 133 - 145 mmol/L 10/16/2025 12:36 PM [facility] Potassium 3.6 3.5 - 5.5 mmol/L 10/16/2025 12:36 PM [facility] Chloride 93(L) 96 - 110 mmol/L 10/16/2025 12:36 PM [facility] CO2 >40(HH) 21 - 32 mmol/L 10/16/2025 12:36 PM [facility] Anion Gap <8 3 - 11 10/16/2025 12:36 PM [facility] Glucose 73 70 - 100 mg/dL 10/16/2025 12:36 PM [facility] BUN 17 5 - 25 mg/dL 10/16/2025 12:36 PM [facility] Creatinine 0.89 0.50 - 1.10 mg/dL 10/16/2025 12:36 PM [facility] eGFR 69 >=60 mL/min/1. 73m2 10/16/2025 12:36 PM [facility] Comment:Calculation based on the Chronic Kidney Disease Epidemiology Collaboration (CKD-EPI) equation refit without adjustment for race. BUN/Creatinine Ratio 19.1 10/16/2025 12:36 PM [facility] Calcium 8.4(L) 8.5 - 10.5 mg/dL 10/16/2025 12:36 PM [facility] Blood Venous blood specimen / Unknown Venipuncture / Unknown 10/16/2025 5:37 AM EST 10/16/2025 9:38 AM EST us Janice Núñez MD LAB BLOOD ORDERABLES Final Resul t [facility] [address] [place] [address], * (ABNORMAL) Complete blood count (10/16/2025 5:37 AM EST) WBC 8.1 4.8 - 10.8 K/mcL LAB HEMETOLOGY METHOD 10/16/2025 10:28 AM [facility] RBC 2.80(L) 3.80 - 4.80 M/[facility] LAB HEMETOLOGY METHOD 10/16/2025 10:28 AM [facility] Hemoglobin 8.0(L) 11.5 - 16.0 g/dL LAB HEMETOLOGY METHOD 10/16/2025 10:28 AM [facility] Hematocrit 27.8(L) 35.0 - 47.0 % LAB HEMETOLOGY METHOD 10/16/2025 10:28 AM [facility] MCV 98.9(H) 79.0 - 98.0 FL LAB HEMETOLOGY METHOD 10/16/2025 10:28 AM [facility] MCH 28.5 27.0 - 32.0 pcg LAB HEMETOLOGY METHOD 10/16/2025 10:28 AM [facility] MCHC 28.8(L) 32.0 - 37.0 g/dL LAB HEMETOLOGY METHOD 10/16/2025 10:28 AM [facility] RDW 15.3(H) 11.0 - 15.0 % LAB HEMETOLOGY METHOD 10/16/2025 10:28 AM EST [facility] Platelets 400 130 - 400 K/mcL LAB HEMETOLOGY METHOD 10/16/2025 10:28 AM EST [facility] MPV 9.2 7.0 - 11.0 FL LAB HEMETOLOGY METHOD 10/16/2025 10:28 AM EST [facility] NRBC 0.0 <1.0 % LAB HEMETOLOGY METHOD 10/16/2025 10:28 AM [facility] NRBC Absolute 0.00 <0.10 K/mcL LAB HEMETOLOGY METHOD 10/16/2025 10:28 AM [facility] Blood Venous blood specimen / Unknown Venipuncture / Unknown 10/16/2025 5:37 AM EST 10/16/2025 9:38 AM EST us Janice Núñez MD LAB BLOOD ORDERABLES Final Resul t [facility] [address] [place] [address], documented in this encounter Visit Diagnoses Diagnosis Malignant neoplasm of unspecified part of left bronchus or lung (CMS/HCC V24, CMS/HCC V28) Chronic respiratory failure with hypercapnia (CMS/HCC V24, CMS/HCC V28) documented in this encounter Additional Health Concerns Assessment Noted Time PHQ-9 Depression Total Score: 1 07/19/20 25 5:04 PM EDT documented as of this encounter Care Teams Centrifugal Extractor Operator Relationship Specialty Start Date End Date Kinjal Barron FNP [address] [place] [phone] PCP - General Family Medicine 03/06/25 documented as of this encounter
--- OUTSIDE RECORDS SUMMARY | 2025-11-22 15:08 | XMS_ITS | Encounter Summary ---
Author Organization [facility] Address [address] [place] [address] Care Team Providers Care Fuel Retrofitting Technician Name Role Phone Kinjal Barron COMIC BOOK DESIGNER Primary Care Provid er Encounter Details Date Type Department Care Team (Late st Contact Info) Description 08/27/[address] [facility] - Main Lab [address] [facility] [place] [address] Janice Núñez MD [address] [place], [place] [phone] Malignant neoplasm of unspecified part of left [...] Description 02/18/2026 10:30 AM EDT Office Visit [facility] Hematology Oncology [address] [place] [phone] Lashanda Mcgill, [address] [place] [address] documented as of this encounter Procedures Procedure [...] mmol/L LAB CHEMISTRY METHOD 08/28/2025 1:05 PM [facility] Potassium 3.4(L) 3.5 - 5.5 mmol/L LAB CHEMISTRY METHOD 08/28/2025 1:05 PM [facility] Chloride 97 96 - 110 mmol/L LAB CHEMISTRY METHOD 08/28/2025 1:05 PM [facility] CO2 36(H) 21 - 32 mmol/L LAB CHEMISTRY METHOD 08/28/2025 1:05 PM [facility] Anion Gap 5 3 - 11 LAB CHEMISTRY METHOD 08/28/2025 1:05 PM [facility] Glucose 111(H) 70 - 100 mg/dL LAB CHEMISTRY METHOD 08/28/2025 1:05 PM [facility] BUN 15 5 - 25 mg/dL LAB CHEMISTRY METHOD 08/28/2025 1:05 PM [facility] Creatinine 0.78 0.50 - 1.10 mg/dL LAB CHEMISTRY METHOD 08/28/2025 1:05 PM [facility] eGFR 81 >=60 mL/min/1. 73m2 LAB CHEMISTRY METHOD 08/28/2025 1:05 PM [facility] Comment:Calculation based on the Chronic Kidney Disease Epidemiology Collaboration (CKD-EPI) equation refit without adjustment for race. BUN/Creatinine Ratio 19.2 LAB CHEMISTRY METHOD 08/28/2025 1:05 PM EDT [facility] Calcium 8.5 8.5 - 10.5 mg/dL LAB CHEMISTRY METHOD 08/28/2025 1:05 PM EDT [facility] Blood Venous blood specimen / Unknown Venipuncture / Unknown 08/28/2025 9:04 AM EDT 08/28/2025 11:54 AM EDT us Janice Núñez MD LAB BLOOD ORDERABLES Final Resul t [facility] [address] [place] [address], [place] [phone] * (ABNORMAL) Complete blood count (08/28/2025 9:04 AM EDT) WBC 3.8(L) 4.8 - 10.8 K/mcL LAB HEMETOLOGY METHOD 08/28/2025 1:14 PM EDT [facility] RBC 4.20 3.80 - 4.80 M/mcL LAB HEMETOLOGY METHOD 08/28/2025 1:14 PM [facility] Hemoglobin 12.0 11.5 - 16.0 g/dL LAB HEMETOLOGY METHOD 08/28/2025 1:14 PM T [facility] Hematocrit 40.8 35.0 - 47.0 % LAB HEMETOLOGY METHOD 08/28/2025 1:14 PM [facility] MCV 96.2 79.0 - 98.0 FL LAB HEMETOLOGY METHOD 08/28/2025 1:14 PM [facility] MCH 28.3 27.0 - 32.0 pcg LAB HEMETOLOGY METHOD 08/28/2025 1:14 PM EDT [facility] MCHC 29.4(L) 32.0 - 37.0 g/dL LAB HEMETOLOGY METHOD 08/28/2025 1:14 PM EDT [facility] RDW 15.8(H) 11.0 - 15.0 % LAB HEMETOLOGY METHOD 08/28/2025 1:14 PM EDT [facility] Platelets 354 130 - 400 K/mcL LAB HEMETOLOGY METHOD 08/28/2025 1:14 PM EDT [facility] MPV 9.2 7.0 - 11.0 FL LAB HEMETOLOGY METHOD 08/28/2025 1:14 PM EDT [facility] NRBC 0.0 <1.0 % LAB HEMETOLOGY METHOD 08/28/2025 1:14 PM EDT [facility] NRBC Absolute 0.00 <0.10 K/mcL LAB HEMETOLOGY METHOD 08/28/2025 1:14 PM EDT [facility] Blood Venous blood specimen / Unknown Venipuncture / Unknown 08/28/2025 9:04 AM EDT 08/28/2025 11:55 AM EDT us Janice Núñez MD LAB BLOOD ORDERABLES Final Resul t [facility] [address] [place] [address], documented in this encounter Visit Diagnoses Diagnosis [...] documented as of this encounter Care Teams Fuel Retrofitting Technician Relationship Specialty Start Date End Date Kinjal Barron FNP [address] [place] [phone] PCP - General Family Medicine 03/06/25 documented as of this encounter
--- OUTSIDE RECORDS SUMMARY | 2025-11-22 15:08 | XMS_ITS | Encounter Summary ---
Author Organization [facility] Address [address] [place] [address] Care Team Providers Care Pest Management Supervisor Name Role Phone Kinjal Barron DISCOTHEQUE DANCER Primary Care Provid er Encounter Details Date Type Department Care Team (Late st Contact Info) Description 09/09/2025 Lab Requisition [facility] - Main Lab [address] [place] [address] Janice Núñez MD [address] [place], [place] [phone] Chronic obstructive pulmonary disease, unspecified (CMS/HCC V24, [...] Description 02/18/2026 10:30 AM EDT Office Visit [facility] Hematology Oncology [address] [place] [phone] Lashanda Mcgill, [address] [place] [address] documented as of this encounter Procedures Procedure Name Priority Date/Time Associated Diagnosis Comments BASIC METABOLIC PANEL Routine 09/09/2025 7:29 AM EDT Chronic obstructive pulmonary disease, unspecified ([facility] V24, [facility] V28) Malignant neoplasm of unspecified part of unspecified bronchus or lung ([facility] V24, [facility] V28) documented in this encounter Results * [...] LAB CHEMISTRY METHOD 09/09/2025 2:03 PM EDT [facility] Blood Venous blood specimen / Unknown Venipuncture / Unknown 09/09/2025 7:29 AM EDT 09/09/2025 12:28 PM EDT us Janice Núñez MD LAB BLOOD ORDERABLES Final Resul t [facility] [address] [place] [address], documented in this encounter Visit Diagnoses Diagnosis Chronic obstructive pulmonary disease, unspecified (CMS/HCC V24, CMS/HCC V28) Malignant neoplasm of unspecified part of unspecified bronchus or lung (CMS/HCC V24, CMS/HCC V28) documented in this encounter Additional Health Concerns Assessment Noted Time PHQ-9 Depression Total Score: 1 07/19/20 5:04 PM EDT documented as of this encounter Care Teams Pest Management Supervisor Relationship Specialty Start Date End Date Kinjal Barron FNP [address] [place] [phone] PCP - General Family Medicine 03/06/25 documented as of this encounter
--- OUTSIDE RECORDS SUMMARY | 2025-11-22 15:08 | XMS_ITS | Encounter Summary ---
Author Organization [facility] Address [address] [place] [address] Care Team Providers Care Sports Marketing Internship Name Role Phone Kinjal Barron LENS MARKER Primary Care Provid er Encounter Details Date Type Department Care Team (Late st Contact Info) Description 11/12/2025 Lab Requisition [facility] - Main Lab [address] [facility] [address] [place] [address] Janice Núñez MD [address] [place], [place] [phone] Malignant neoplasm of unspecified part of left [...] Description 02/18/2026 10:30 AM EDT Office Visit [facility] Hematology Oncology [address] [place] [phone] Lashanda Mcgill, [address] [place] [address] documented as of this encounter Procedures Procedure [...] 133 - 145 mmol/L 11/13/2025 11:32 AM [facility] Potassium 3.1(L) 3.5 - 5.5 mmol/L 11/13/2025 11:32 AM [facility] Chloride 90(L) 96 - 110 mmol/L 11/13/2025 11:32 AM [facility] CO2 40(H) 21 - 32 mmol/L 11/13/2025 11:32 AM [facility] Anion Gap 11 3 - 11 11/13/2025 11:32 AM [facility] Glucose 128(H) 70 - 100 mg/dL 11/13/2025 11:32 AM [facility] BUN 25 5 - 25 mg/dL 11/13/2025 11:32 AM [facility] Creatinine 1.12(H) 0.50 - 1.10 mg/dL 11/13/2025 11:32 AM [facility] eGFR 53(L) >=60 mL/min/1. 73m2 11/13/2025 11:32 AM [facility] Comment:Calculation based on the Chronic Kidney Disease Epidemiology Collaboration (CKD-EPI) equation refit without adjustment for race. BUN/Creatinine Ratio 22.3 11/13/2025 11:32 AM [facility] Calcium 8.8 8.5 - 10.5 mg/dL 11/13/2025 11:32 AM [facility] Blood Venous blood specimen / Unknown Venipuncture / Unknown 11/13/2025 7:56 AM EST 11/13/2025 10:13 AM EST us Janice Núñez MD LAB BLOOD ORDERABLES Final Resul t [facility] [address] [place] [address], * (ABNORMAL) Complete blood count (11/13/2025 7:56 AM EST) WBC 7.6 4.8 - 10.8 K/mcL LAB HEMETOLOGY METHOD 11/13/2025 11:04 AM [facility] RBC 3.00(L) 3.80 - 4.80 M/mcL LAB HEMETOLOGY METHOD 11/13/2025 11:04 AM [facility] Hemoglobin 7.6(L) 11.5 - 16.0 g/dL LAB HEMETOLOGY METHOD 11/13/2025 11:04 AM [facility] Hematocrit 26.6(L) 35.0 - 47.0 % LAB HEMETOLOGY METHOD 11/13/2025 11:04 AM [facility] MCV 89.9 79.0 - 98.0 FL LAB HEMETOLOGY METHOD 11/13/2025 11:04 AM [facility] MCH 25.7(L) 27.0 - 32.0 pcg LAB HEMETOLOGY METHOD 11/13/2025 11:04 AM [facility] MCHC 28.6(L) 32.0 - 37.0 g/dL LAB HEMETOLOGY METHOD 11/13/2025 11:04 AM [facility] RDW 16.2(H) 11.0 - 15.0 % LAB HEMETOLOGY METHOD 11/13/2025 11:04 AM EST [facility] Platelets 497(H) 130 - 400 K/mcL LAB HEMETOLOGY METHOD 11/13/2025 11:04 AM EST [facility] MPV 9.4 7.0 - 11.0 FL LAB HEMETOLOGY METHOD 11/13/2025 11:04 AM EST [facility] NRBC 0.0 <1.0 % LAB HEMETOLOGY METHOD 11/13/2025 11:04 AM EST [facility] NRBC Absolute 0.00 <0.10 K/mcL LAB HEMETOLOGY METHOD 11/13/2025 11:04 AM [facility] Blood Venous blood specimen / Unknown Venipuncture / Unknown 11/13/2025 7:56 AM EST 11/13/2025 10:13 AM EST us Janice Núñez MD LAB BLOOD ORDERABLES Final Resul t [facility] [address] [place] [address], documented in this encounter Visit Diagnoses Diagnosis Malignant neoplasm of unspecified part of left bronchus or lung (CMS/HCC V24, CMS/HCC V28) Chronic respiratory failure with hypercapnia (CMS/HCC V24, CMS/HCC V28) documented in this encounter Additional Health Concerns Assessment Noted Time PHQ-9 Depression Total Score: 1 07/19/20 25 5:04 PM EDT documented as of this encounter Care Teams Sports Marketing Internship Relationship Specialty Start Date End Date Kinjal Barron FNP [address] [place] [phone] PCP - General Family Medicine 03/06/25 documented as of this encounter
--- OUTSIDE RECORDS SUMMARY | 2025-11-22 15:08 | XMS_ITS | Encounter Summary ---
Author Organization [facility] [address] Care Team Providers Care Ballet Company Artistic Director Name Role Phone Kinjal Barron CLINICAL AUDITOR Primary Care Provid er Encounter Details Date Type Department Care Team (Late st Contact Info) Description 09/01/2025 Lab Requisition [facility] - Main Lab [address] [place] [address] Janice Núñez MD [address] [place], [place] [phone] Frequency of micturition; Fever, unspecified Social History [...] [facility] Hematology Oncology [address] [place] [phone] Lashanda Mcgill, [address] [place] [address] documented as of this encounter Procedures Procedure [...] reflex microscopic (08/31/2025 4:00 PM EDT) Specific [place] Urine 1.008 1.003 - 1.030 LAB URINALYSIS - AUTOMATED METHOD 09/01/2025 10:46 AM [facility] pH, Urine 6.5 5.0 - 8.0 pH LAB URINALYSIS - AUTOMATED METHOD 09/01/2025 10:46 AM [facility] Leukocytes, Urine Trace(A) Negative LAB URINALYSIS - AUTOMATED METHOD 09/01/2025 10:46 AM [facility] Nitrite, Urine Negative Negative LAB URINALYSIS - AUTOMATED METHOD 09/01/2025 10:46 AM [facility] Protein, Urine Negative <=Trace mg/dL LAB URINALYSIS - AUTOMATED METHOD 09/01/2025 10:46 AM [facility] Glucose, Urine Negative Negative mg/dL LAB URINALYSIS - AUTOMATED METHOD 09/01/2025 10:46 AM [facility] Ketones, Urine Negative Negative mg/dL LAB URINALYSIS - AUTOMATED METHOD 09/01/2025 10:46 AM [facility] Urobilinogen, Urine 0.2 0.2 - 1.0 mg/dL LAB URINALYSIS - AUTOMATED METHOD 09/01/2025 10:46 AM [facility] Bilirubin, Urine Negative Negative LAB URINALYSIS - AUTOMATED METHOD 09/01/2025 10:46 AM [facility] Blood, Urine Small(A) Negative LAB URINALYSIS - AUTOMATED METHOD 09/01/2025 10:46 AM [facility] RBC, Urine 1.0 0 - 4 /HPF LAB URINALYSIS - AUTOMATED METHOD 09/01/2025 10:46 AM EDT [facility] WBC, Urine 7.0(H) 0 - 4 /HPF LAB URINALYSIS - AUTOMATED METHOD 09/01/2025 10:46 AM EDT [facility] Squamous Epithelial, Urine 10 0 - 60 /LPF LAB URINALYSIS - AUTOMATED METHOD 09/01/2025 10:46 AM EDT [facility] Bacteria, Urine Negative Negative /HPF LAB URINALYSIS - AUTOMATED METHOD 09/01/2025 10:46 AM EDT [facility] Hyaline Casts, Urine 0.4 0 - 3 /LPF LAB URINALYSIS - AUTOMATED METHOD 09/01/2025 10:46 AM EDT [facility] Urine Urine specimen obtained by clean catch procedure / Unknown Non-blood Collection / Unknown 08/31/2025 4:00 PM EDT 09/01/2025 10:18 AM EDT us Janice Núñez MD LAB URINE ORDERABLES Final Resul t Performing Organization Address City/[facility]/ZIP Co de Phone Number [facility] [address] [place] [address], [place] [phone] * Culture urine (08/31/2025 4:00 PM EDT) Culture, Urine <10,000 CFU/mL gram positive cocci, insignificant count, no further workup 09/02/2025 11:17 AM EDT [facility] Urine Urine specimen obtained by clean catch procedure / Unknown Non-blood Collection / Unknown 08/31/2025 4:00 PM EDT 09/01/2025 10:18 AM EDT us Janice Núñez MD LAB MICROBIOLOGY - GENERAL ORDER KANE Final Result [facility] [address] [place] [address], documented in this encounter Visit Diagnoses Diagnosis [...] documented as of this encounter Care Teams [employer] Artistic Director Relationship Specialty Start Date End Date Kinjal Barron FNP [address] [place] [phone] PCP - General Family Medicine 03/06/25 documented as of this encounter
--- OUTSIDE RECORDS SUMMARY | 2025-11-22 15:08 | XMS_ITS | Clinical Summary ---
Author Organization [facility] Prior to 04/27/[address] [place] [address] Care Team Providers Care Farmworker [employer]oder [employer] Name Role Phone Debra Ji MD Primary Care Provider [phone] Allergies Active Allergy Reactions Criticality Noted Date [...] 0 Active zoster vaccine live, PF, (ZOSTAVAX) 59642 UNT/0.65ML injection Inject 0.65 mL under the [...] age to complete this topic Care Teams Farmworker [employer] Relationship Specialty Start Date End Date Debra Ji MD PCP - General Internal Medicine 06/27/17
--- OUTSIDE RECORDS SUMMARY | 2025-11-22 15:08 | XMS_ITS | Encounter Summary ---
Author Organization [facility] Address [address] [place] [address] Care Team Providers Care Access Services Assistant Name Role Phone Kinjal Barron LEVI MAKER Primary Care Provid er Encounter Details Date Type Department Care Team (Late st Contact Info) Description 08/30/2025 Lab Requisition [facility] - Main Lab [address] [place] [address] Janice Núñez MD [address] [place] [address] Hyperkalemia Social History Tobacco Use Types Packs/Day [...] [facility] H[facility] [address] [place] [phone] Lashanda Mcgill, DO [address] [place] [address] documented as of this encounter Procedures Procedure Name Priority Date/Time Associated Diagnosis Comments BASIC METABOLIC PANEL Routine 08/30/2025 6:02 AM EDT Hyperkalemia documented in this encounter Results * (ABNORMAL) Basic metabolic panel (08/30/2025 6:02 AM EDT) Sodium 140 133 - 145 mmol/L LAB CHEMISTRY METHOD 08/30/2025 2:[address] [facility] Potassium 3.5 3.5 - 5.5 mmol/L LAB CHEMISTRY METHOD 08/30/2025 2:[address] [facility] Chloride 99 96 - 110 mmol/L LAB CHEMISTRY METHOD 08/30/2025 2:[address] [facility] CO2 35(H) 21 - 32 mmol/L LAB CHEMISTRY METHOD 08/30/2025 2:[address] [facility] Anion Gap 6 3 - 11 LAB CHEMISTRY METHOD 08/30/2025 2:[address] [facility] Glucose 86 70 - 100 mg/dL LAB CHEMISTRY METHOD 08/30/2025 2:[address] [facility] BUN 13 5 - 25 mg/dL LAB CHEMISTRY METHOD 08/30/2025 2:[address] [facility] Creatinine 0.85 0.50 - 1.10 mg/dL LAB CHEMISTRY METHOD 08/30/2025 2:[address] [facility] eGFR 73 >=60 mL/min/1. 73m2 LAB CHEMISTRY METHOD 08/30/2025 2:[address] [facility] Comment:Calculation based on the Chronic Kidney Disease Epidemiology Collaboration (CKD-EPI) equation refit without adjustment for race. BUN/Creatinine Ratio 15.3 LAB CHEMISTRY METHOD 08/30/2025 2:[address] [facility] Calcium 8.7 8.5 - 10.5 mg/dL LAB CHEMISTRY METHOD 08/30/2025 2:[address] [facility] Blood Venous blood specimen / Unknown Venipuncture / Unknown 08/30/2025 6:02 AM EDT 08/30/2025 9:37 AM EDT Janice Núñez MD LAB BLOOD ORDERABLES Final Resul t [facility] [address] [place] [address], documented in this encounter Visit Diagnoses Diagnosis Hyperkalemia Hyperpotassemia documented in this encounter Additional Health Concerns Infection Onset Date Last Indicated Resolved Time Respiratory Rule-Out 09/05/2025 09/05/2025 025 3:59 PM EDT COVID-19 Rule-Out 09/05/2025 09/05/2025 09/05/2025 3:59 PM EDT Assessment Noted Time PHQ-9 Depression Total Score: 1 07/19/20 25 5:04 PM EDT documented as of this encounter Care Teams Access Services Assistant Relationship Specialty Start Date End Date Kinjal Barron FNP [address] [place] [phone] PCP - General Family Medicine 03/06/25 documented as of this encounter
--- OUTSIDE RECORDS SUMMARY | 2025-11-22 15:08 | XMS_ITS | Data Portability ---
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 Role Phone [facility] OTHER Assessment Encounter Date [...] Organization Details Recorded Time Depressi ve disorder 06290838 Active BLAS Rollins [address] [facility], [address], [place], [address] , [facility] [employer] 5 10:21:22 Acute exacerba tion of chronic obstruct sophie pulmonar y disease 242386781 Completed 12/20/2024 Not Available [facility] 5 09:41:59 Gastroes ophageal reflux disease 355242311 Completed 12/23/2024 BLAS GONZÁLES [address] [facility], [address], [place], [address] , [facility] 5 14:16:13 Bipolar disorder 32512283 Completed 12/20/2024 BLAS GONZÁLES [address] [facility], [address], [place], [address] , [facility] 5 14:04:18 Insomnia 406520187 Completed 12/20/2024 Not Available [facility] 5 09:42:54 Tachycar fiordaliza 4081676 Completed 12/23/2024 BLAS GONZÁLES [address] [facility], [address], [place], [address] , [facility] 5 13:43:54 Obesity 057991248 Completed 202012/20/2024 Not Available [facility] 5 09:42:44 Dyspnea 906206453 Completed 202012/20/2024 Not Available [facility] 5 09:42:45 Acute on chronic hypercap juan respirat ory failure 20314942862 06 Completed 202012/20/2024 Not Available [facility] 5 09:42:46 Late effect of accident al fall 846868808 Completed 202012/20/2024 Not Available [facility] 5 09:42:47 Unsteady when standing 744305233 Completed 202012/20/2024 Not Available [facility] 5 09:42:48 Syncope and collapse 478376545 Completed 202012/20/2024 Not Available [facility] 5 09:42:50 Acute exacerba tion of chronic obstruct sophie pulmonar y disease 725947516 Completed 202012/20/2024 Not Available [facility] 5 09:42:51 Muscle weakness 97159624 Completed 202012/20/2024 Not Available [facility] 5 09:42:53 Difficul ty walking 692835796 Completed 202012/20/2024 Not Available [facility] 5 09:42:55 Inflamma tory dermatos is 722566039 Completed 202012/20/2024 eczema Not Available [facility] 5 09:42:55 Bronchit is 82021764 Completed 202012/20/2024 Not Available [facility] 5 09:42:56 Acute exacerba tion of chronic obstruct sophie pulmonar y disease 434134754 Completed 202112/20/2024 Not Available [facility] 5 09:42:03 Muscle weakness 95804285 Completed 202112/20/2024 Not Available [facility] 5 09:42:06 Intersti tial lung disease 335885325 Completed 202112/20/2024 Not Available [facility] 5 09:42:11 Metaboli c encephal opathy 13919872 Completed 202112/20/2024 Not Available [facility] 5 09:42:14 Dyspnea 960421106 Completed 202112/20/2024 Not Available [facility] 5 09:42:14 Abnormal posture 15695892 Completed 202112/20/2024 Not Available [facility] 5 09:42:41 Abnormal posture 99600022 Completed 202112/20/2024 Not Available [facility] 5 09:42:42 Constipa tion 65734652 Completed 202112/20/2024 Not Available [facility] 5 09:42:40 Orophary ngeal dysphagi a 79090027 Completed 202112/20/2024 Not Available [facility] 5 09:42:13 Difficul ty walking 790404389 Completed 202212/20/2024 Not Available [facility] 5 09:42:08 Fall Completed 202212/20/2024 Not Available [facility] 5 09:42:12 Senile cataract 80172070 Completed 202212/23/2024 BLAS GONZÁLES [address] [employer] , [address], [place], [address] , [facility] 5 13:43:54 Chronic obstruct sophie pulmonar y disease 83466801 Completed 202212/20/2024 BLAS GONZÁLES [address] [employer] , [address], [place], [address] , [facility] 5 13:32:43 Disorder of body system 308369302 Completed 202212/20/2024 Not Available [facility] 5 09:42:39 Chronic obstruct sophie pulmonar y disease 72068437 Active 2022 BLAS GONZÁLES [address] [employer] , [address], [place], [address] , [facility] 5 13:32:43 Chronic hypoxemi c respirat ory failure 242835045 Completed 202212/20/2024 Not Available [facility] 5 09:42:36 Gastroes ophageal reflux disease without esophagi tis 107211373 Completed 202212/23/2024 BLAS GONZÁLES [address] [employer], [address], [place], [address] , [facility] 5 13:43:54 Pain in left foot 98352383026 9107 Completed 202212/20/2024 Not Available [facility] 09:42:34 Essentia l hyperten lisa 44203866 Completed 202212/23/2024 BLAS GONZÁLES [address] [facility], [address], [place], [address] , [facility] 13:43:54 Osteopor osis 69488454 Completed 202212/20/2024 Not Available [facility] 5 09:42:52 Localize d, primary osteoart hritis of the ankle and/or foot 200799173 Completed 202212/20/2024 Not Available [facility] 09:42:33 Pleuriti c pain 7906196 Completed 202212/20/2024 Not Available [facility] 5 09:42:32 Fracture of multiple ribs 5573664 Completed 202312/20/2024 Not Available [facility] 5 09:42:01 Fall Completed 202312/20/2024 Not Available [facility] 5 09:42:29 Acute on chronic hypoxemi c respirat ory failure 66126648395 427196 Completed 202312/20/2024 Not Available [facility] 5 09:42:29 Syncope and collapse 649658108 Completed 202312/20/2024 Not Available [facility] 5 09:42:30 Difficul ty walking 044211124 Completed 202312/20/2024 Not Available [facility] 5 09:42:31 Acute exacerba tion of chronic obstruct sophie pulmonar y disease 270197189 Completed 202312/20/2024 Not Available [facility] 5 09:42:00 Acute on chronic hypercap juan respirat ory failure 95929953090 06 Completed 202312/20/2024 Not Available [facility] 5 09:42:03 Acute on chronic hypoxemi c respirat ory failure 26055212158 430549 Completed 202312/20/2024 Not Available [facility] 5 09:42:06 Acute pulmonar y edema 22048733 Completed 202312/20/2024 Not Available [facility] 5 09:42:08 Congesti ve heart failure 66359131 Completed 202312/20/2024 Not Available [facility] 09:42:10 Anxiety disorder 247200792 Active 2023 Not Available [facility] 5 09:42:22 Inflamma tory dermatos is 497303109 Completed 202312/20/2024 eczema Not Available [facility] 5 09:42:23 Unsteady when standing 341869688 Completed 202312/20/2024 Not Available [facility] 5 09:42:24 Muscle weakness 94033579 Completed 202312/20/2024 Not Available [facility] 5 09:42:25 Dyspnea 963166246 Completed 202312/20/2024 Not Available [facility] 5 09:42:25 Difficul ty walking 790640124 Completed 202312/20/2024 Not Available [facility] 5 09:42:26 Somatic syndrome absent 026880840 Completed 202312/23/2024 BLAS GONZÁLES [address] [facility], [address], [place], [address] , [facility] 5 13:43:54 Pulmonar y emphysem a 14364286 Completed 202312/23/2024 JOLEEN BISHOP, BLAS [address] [facility], [address], [place], [address] , [facility] 5 13:43:54 Need for personal care assistan ce 88511273002 627422 Completed 202312/20/2024 Not Available [facility] 5 09:42:11 Acidosis 16313660 Completed 202312/20/2024 Not Available [facility] 5 09:42:02 Congesti ve heart failure 06974506 Completed 202312/20/2024 Not Available [facility] 5 09:42:04 Chronic hypercap juan respirat ory failure 550564475 Completed 202312/20/2024 Not Available [facility] 5 09:42:43 Pneumoni a 812613055 Completed 202312/20/2024 Not Available [facility] 5 09:42:09 Muscle weakness 74346210 Completed 202312/20/2024 Not Available [facility] 5 09:42:16 Difficul ty walking 669187010 Completed 202312/20/2024 Not Available [facility] 5 09:42:17 Chronic cor pulmonal e 84678254 Completed 202312/20/2024 Not Available [facility] 5 09:42:17 Atopic dermatit is 95008441 Completed 202312/20/2024 Not Available [facility] 5 09:42:18 Acute exacerba tion of chronic obstruct sophie pulmonar y disease 030120010 Completed 202312/20/2024 Not Available [facility] 5 09:42:19 Congesti ve heart failure 82528962 Active 2023 Not Available [facility] 5 09:42:19 Paroxysm al atrial fibrilla tion 556175797 Active 2023 Not Available [facility] 5 09:42:20 Major depressi on, single episode 95535760 Completed 202312/20/2024 Not Available [facility] 5 09:42:45 Post-tra umatic stress disorder 75307651 Active 2023 Not Available [facility] 5 09:42:20 Dependen ce on enabling machine or device 016442834 Completed 202312/23/2024 IVAP BLAS GONZÁLES [address] [facility], [address], [place], [address] , [facility] 5 13:43:54 Dependen ce on suppleme ntal oxygen 57334577172 7 Completed 202312/20/2024 Not Available [facility] 5 09:42:37 Chronic obstruct sophie pulmonar y disease 55363281 Completed 202312/20/2024 Not Available [facility] 5 10:29:12 Acute on chronic hypoxemi c respirat ory failure 49540203706 905482 Completed 202412/20/2024 Not Available [facility] 5 09:41:58 Anemia 755650774 Active 2024 Not Available [facility] 5 09:42:15 Epilepsy 66934413 Completed 202412/23/2024 BLAS GONZÁLES [address] [facility], [address], [place], [address] , [facility] 5 13:43:54 Seizure 16595406 Active 2024 BLAS GONZÁLES [address] [facility], [address], [place], [address] , [facility] 5 13:33:33 Lung mass 718084208 Active 2024 JOLEEN BISHOP [employer], [address], [place], [address] , [facility] 5 14:00:34 Bipolar disorder 45103953 Active [address], [address], [place], [address] , [facility] 5 14:04:18 Gastroes ophageal reflux disease 756567986 Active [address], [address], [place], [address] , [facility] 5 14:16:13 Problem Notes None recorded. Medical Equipment None Reported. Allergies Allergen ID Allergen Name Allergen Category Reaction Reaction Severity Criticality Documentation Date Start Date Code Code System Note Provider Name and Address Organization Details Recorded Time 161 Haldol medicatio n Not available Not available Not available 09/01/2015 87228 9 RxNorm Mellisa Georges [address], [address], [place], [address], [facility] 5 10:07:26 162 codeine medicatio n Not available Not available Not available 09/01/20152021 2670 RxNorm Restl ess/R jai Not Available [facility] 09:42:59 163 Substance with sulfonami de structure and antibacte rial mechanism of action (substanc e) medicatio n Not available Not available Not available 09/01/2015 50149 8003 SNOMED Mellisa Georges [address], [address], [place], [address], [facility] 5 10:07:26 36307 haloperid ol medicatio n Not available Not available Not available 12/20/20242021 5093 RxNorm Palpa tions Not Available [facility] 5 09:42:59 28956 fluoxetin e medicatio n Not available Not [...] Not Avai lable pantoprazol e 40 mg tablet,ivring yed release Give 40 mg by mouth [...] 97 % 103/52 mm[Hg] BLAS GONZÁLES [address] [facility], [address], [place], [address], [place] - [employer] 5 14:47:16 Social History Question Answer Notes LastModified by Organizat ion Details LastModified Time Tobacco Smoking Status Current Every Day Smoker Not Available [employer] 09/23/2020 03:13:02 How Many Years Have You Smoked Tobacco? 50 [id number] Information not available 09/23/2020 Sex: Unknown Functional [...] Diagnosis Note 363 BLAS Rollins [facility] on [address] [place] [address] 09/01/2015 10:08:10 11/04/2015 03:49:10 Acute exacerbation of chronic obstructive pulmonary disease 049019458 J44.1 pt will continue her nebs treatments , Spiriva, prednisone taper, theodur, advair. continue on bipap, start PT/OT Gastroesop hageal reflux disease 489461064 K21.9 continue prilosec Bipolar disorder 8393571 4 F31.9 as pt requested we will increase abilify to 15 mg qd from 10 mg, continue lamictal as ordered which is not a change from [facility]. she can also see [facility] for this diagnosis. Insomnia 157958973 G47.0 0 pt has been on trazodone in the past, not now, will try remeron Tachycardia 4005500 R00. 0 pt was started on atenolol for elevated heart rate. is normal rate now. continue to monitor. 450 Mohsen Dos Santos MD Main Office [address] [facility], [address] [place] [address] 09/02/2015 17:39:53 10/09/2015 03:48:09 Acute exacerbation of chronic obstructive pulmonary disease 318736316 J44.1 acute on chronic, improving. Unclear why on all her inhalers while she is on oral prednisone and DuoNeb. We will hold all her inhalers until she has stopped her DuoNeb updrafts and her steroids have been tapered off. Tachycardia 5043681 R00. 0 responding to atenolol. Patient feels much improved Bipolar disorder 3958651 4 F31.9 no change her current medication s Chronic ob structive pulmonary disease 45938251 J44.9 chronic history, resume baseline meds once stable [id number] JOLEEN BISHOP, BLAS [place] [address] [place] [address] 12/17/2024 13:30:48 12/25/2024 16:13:18 Chronic obstructive pulmonary disease 62031021 J44.9 sob not r/t exacerbati onbaseline on supplement al O2 at 3 literscont on albuterol, breo neb tx, prednisone ,per discharge summary voriconazo le was mention in med list, unable to verify if she was started on this by pulmonolog y.f/u with pulmonolog ymonitor resp status.RT eval and tx prncont biPAP at hs Congestive heart failure 81955265 I50.9 cont on Lasix 40mg , kcl 10 megcont on metoprolol monitor weight, resp, edema Paroxysmal atrial fibrillation 000967974 I48.0 cont on eliquis , metoprolol monitor for unexplaine d bruising bleeding Seizure 57098858 R56.9 continue Lamictal 200 mg qd and 300 mg at nightmonit or for activityfo llow labs Anemia 646909622 D64.9 symptomati chgb 8.4GI consulted - recommende d to f/u with GI outpatient started on ferrous sulfate dailycont vit b, vit Dfollow labs Lung mass 520745109 R91. 8 11/02/24 ct scan showed small area of consolidat sophie hypodensit y in the left upper lobe slightly increased compared to 11/24/2023 .need to f/u to r/o malignancy . Depressive disorder 4828 9007 F32.A cont on Vilazodone 40 mgcontinue on mirtazapin ehx of suicidal ideat b ion, monitor moods and behavioral changes Bipolar disorder 6878898 4 F31.9 cont on abilify, theophylli ne Gastroesop hageal reflux disease 529417823 K21.9 cont on protonixmo nitor for GI upsetsx if bleeding Osteoporosis 08555058 M8 1.0 cont. on alendronat e, vit D, omega 3 , calcium Allergic rhinitis 062091 04 J30.9 cont fluticason e and mucinex Constipation 90450063 K5 9.00 cont on miralax, senna, lactulose Asthenia 79623833 R53.1 02 dependent, dyspnea with exertionPT /OT eval and treat [id number] FARHAD DAILEY NP-C [facility] [address] [place] [address] 12/25/2024 12:54:10 12/27/2024 14:09:06 Anemia 578118408 D64.9 symptomati chgb 8.4GI consulted - recommende d to f/u with GI outpatient started on ferrous sulfate dailycont vit b, vit Dfollow labs outptf/up with pcp Chronic ob structive pulmonary disease 99938125 J44.9 sob not r/t exacerbati onbaseline on supplement al O2 at 3 literscont on albuterol, breo neb tx, prednisone ,per discharge summary voricontashi mesa was mention in med list, unable to verify if she was started on this by pulmonolog y.f/u with pulmonolog ycont biPAP at hs Congestive heart failure 43191085 I50.9 cont on Lasix 40mg , kcl 10 megcont on metoprolol monitor weight, resp, edema at homef/up with pcp Paroxysmal atrial fibrillation 463566812 I48.0 cont on eliquis , metoprolol monitor bleeding at homef/up with pcp Seizure 94198986 R56.9 continue Lamictal 200 mg qd and 300 mg at nightmonit or for activity at homef/up with pcp Lung mass 699600082 R91. 8 11/02/24 ct scan showed small area of consolidat sophie hypodensit y in the left upper lobe slightly increased compared to 11/24/2023 .need to f/u to r/o malignancy outptf/up with pcp Depressive disorder 3548 9007 F32.A cont on Vilazodone 40 mgcontinue on mirtazapin ef/up with pcp Bipolar disorder 1149806 4 F31.9 cont on abilify, theophylli mars/up with pcp Gastroesop hageal reflux disease 340255603 K21.9 cont on protonixmo nitor for GI upset outptf/up with pcp Osteoporosis 96269044 M8 1.0 cont. on alendronat e, vit D, omega 3 , calciumf/u p with pcp Allergic rhinitis 274631 04 J30.9 cont fluticason e and mucinexf/u p with pcp Constipation 55444796 K5 9.00 cont on miralax, senna, lactulosef /up with pcp Asthenia 65952117 R53.1 02 dependent, dyspnea with exertionco mpleted PT/OT eval and treatf/up with pcp Health Concerns Section Related Observation LastModified by Organization Detai ls LastModified Time None Recorded Concern Status LastModified by Organization Details LastModified Time None Recorded Advance Directives Directive None Recorded Payers Insurance Date Sequence Insurance Name Policy Number Policy Garcia Covered Member ID Garcia Member ID Guarantor Name 11/14/2024 1 MEDICA[place]: [facility] Lluvia Cartagena [id number] Lluvia Cartagena 12/17/2024 2 [place]: [facility] Lluvia Cartagena [id number] Lluvia Cartagena 12/25/2024 1 MED[place] B-[place]: [facility] [employer] Lluvia Cartagena [id number] Lluvia Cartagena Notes Date Note Type Note Provider Name and Address Organization Details Recorded Time 09/01/2015 text/html HPI patient admitted to [facility] for COPD exacerbation, acute on chronic resp failure, started on Bipap and atenolol for tachycardia AIDA RollinsP [address] [facility], [address], [place], [address], [facility] [employer] 09/01/2015 10:36:55 09/02/2015 text/html HPI 60-year-old female admitted for respiratory infection with negative chest x-ray, acute exacerbation of COPD, but he by hypoxemia and hypercapnia. She required ICU stay for administration of BiPAP. Chest x-ray did not show acute infiltrate. She was treated however with steroids, updraft and antibiotics. History of bipolar disorder as well is active smoker Mohsen Dos Santos MD [address] [facility], [address], [place], [address], [facility] 09/02/2015 17:45:59 12/17/2024 text/html ROS as noted in the HPI This is a 69-year-old female patient seen for Transition of care and re-admission. PMH of chronic hypoxic respiratory failure secondary to COPD, chronic CO2 retention, Afib, anxiety/depression, PTSD,obesity, osteoporosis, lung mass,PNA. She was [place] [facility] [place] of worsening shortness of breath; medical workup appeared to be at her baseline with the exception of anemia, baseline she usually around 10, labs showed hgb 8.4. GI was consulted and due to no concerns for a GI bleed, patient is recommended to follow up outpatient for EGD/colonoscopy. Per nursing she has been at her baseline since returning [place], there are no acute concerns. BLAS GONZÁLES [address] [place] [address], [address], [place], [address], [facility] 12/23/2024 16:38:36 12/25/2024 text/html ROS as noted in the HPI This is a 69-year-old female patient seen for discharge summary. PMH of chronic hypoxic respiratory failure secondary to COPD, chronic CO2 retention, Afib, anxiety/depression, PTSD, obesity, osteoporosis, lung mass,PNA. She was sent [place] [facility] [place] evaluation of worsening shortness of [...] plan on finding her a pcp in [place] where they live. Patient is stable for [place] home with meds and services. GÉNESIS FERNÁNDEZ [address] [facility], [address], [place], [address], [facility] 12/26/2024 07:14:05 OBGyn Episode No OBEpisode recorded.
[2025-11-22 15:11] LABS: NT Pro B Type Natriuretic Pept 226.3 pg/mL (<300)
[2025-11-22 15:12] LABS: Alanine Aminotransferase 7 U/L (0-31); Albumin Level 3.9 g/dL (3.5-5.0); Alkaline Phosphatase 71 U/L (39-117); Anion Gap 9 (12-20); Aspartate Amino Transferase 20 U/L (5-31); Blood Urea Nitrogen 15 mg/dL (9-16); Calcium 9.1 mg/dL (8.4-10.2); Carbon Dioxide 43 mmol/L (22-29); Chloride 94 mmol/L (96-108); Creatinine Clr Calc Pharmacy 61.2; Estimated Glomerular Filt Rate > 60; Magnesium 2.7 mg/dL (1.6-2.6); Potassium 3.9 mmol/L (3.3-5.1); Sodium 142 mmol/L (135-145); Total Protein 6.4 g/dL (6.5-8.0)
[2025-11-22 15:14] LABS: Troponin-I High Sensitivity 6.6 ng/L (<3.5-17.0)
--- NOTE | 2025-11-22 15:19 | ED.GENADULT ---
HPI - General Adult General Chief complaint: General Medical Stated complaint: AMS LOW O2 LUNG CANCER HX Time Seen by Provider: 11/22/25 15:19 Source: patient and EMS Mode of arrival: EMS Limitations: altered mental status History of Present Illness ED Provider: HPI narrative: 70-year-old woman presenting with lethargy from a nursing facility, she was just discharged from the ER for hypercapnic respiratory failure, my understanding by speaking with her daughter is that she has in properly fitted BiPAP at the nursing facility and it was supposed to be changed and it was never changed and this is the result of her coming back to the ER. Related Data Home Medications ?Medication ?Instructions ?Recorded ?Confirmed alendronate 70 mg tablet (Fosamax) 70 mg PO DOMINGUEZ 02/09/21 11/17/25 mirtazapine 15 mg tablet 7.5 mg PO BEDTIME 09/10/21 11/17/25 sennosides 8.6 mg tablet (Senokot) 8.6 mg PO BEDTIME 09/10/21 11/17/25 Oxygen Home Use 04/15/23 10/22/24 nebulizers 04/15/23 10/22/24 docusate sodium 100 mg capsule 100 mg PO DAILY PRN Constipation 07/27/24 11/17/25 aripiprazole 10 mg tablet 10 mg PO DAILY 08/20/24 11/17/25 omega 3-nzj-voa-fish oil 1,000 mg 1 cap PO BID 08/20/24 11/17/25 (120 mg-180 mg) capsule (Fish Oil) apixaban 5 mg tablet (Eliquis) 5 mg PO BID 09/26/24 11/17/25 gabapentin 100 mg capsule 100 mg PO BID 01/18/25 11/17/25 ferrous gluconate 324 mg (38 mg 324 mg PO DAILY 07/25/25 11/17/25 iron) tablet calcium carbonate (Oyster Shell 500 mg PO BID 08/06/25 11/17/25 Calcium) cholecalciferol (vitamin D3) 25 25 mcg PO DAILY 08/06/25 11/17/25 mcg (1,000 unit) tablet (Vitamin D3) fluticasone furoate 200 1 ea inhalation DAILY dyspnea 08/06/25 11/17/25 mcg-vilanterol 25 mcg/dose inhalation powder (Breo Ellipta) furosemide 40 mg tablet 40 mg PO DAILY 08/06/25 11/17/25 lactulose 10 gram/15 mL oral 15 ml PO DAILY PRN constipation 08/06/25 11/17/25 solution (Enulose) lamotrigine 200 mg tablet 200 mg PO BID 08/06/25 11/17/25 vilazodone 40 mg tablet 40 mg PO DAILY 08/06/25 11/17/25 acetaminophen 325 mg tablet 650 mg PO Q4H PRN Fever/Pain 10/23/25 11/17/25 acetazolamide 250 mg tablet 250 mg PO MOWEFR 10/23/25 11/17/25 aspirin 81 mg tablet 81 mg PO DAILY 10/23/25 11/17/25 atorvastatin 40 mg tablet 40 mg PO DAILY 10/23/25 11/17/25 bisacodyl 10 mg rectal suppository 10 mg MN DAILY PRN Constipation 10/23/25 11/17/25 guaifenesin 600 mg tablet, 1,200 mg PO BID PRN Congestion 10/23/25 11/17/25 extended release 12 hr loratadine 10 mg tablet (Claritin) 10 mg PO DAILY 10/23/25 11/17/25 magnesium hydroxide 400 mg/5 mL 30 ml PO DAILY PRN Constipation 10/23/25 11/17/25 oral suspension (Milk of Magnesia) metoprolol succinate 100 mg 100 mg PO DAILY 10/23/25 11/17/25 tablet,extended release 24 hr prednisone 10 mg tablet 10 mg PO DAILY 10/23/25 11/17/25 sodium phosphates 19 gram-7 118 ml MN DAILY PRN Constipation 10/23/25 11/17/25 gram/197 mL enema (Fleet Enema Extra) tramadol 50 mg tablet 50 mg PO Q6H PRN Pain 10/23/25 11/17/25 trazodone 50 mg tablet 25 mg PO BEDTIME Sleep 10/23/25 11/17/25 betamethasone dipropionate 0.05 % 1 appl topical BID 11/17/25 11/17/25 topical cream fluocinolone acetonide oil 0.01 % 5 drp otic (ears) BID PRN 11/17/25 11/17/25 ear drops sebopsoriasis lorazepam 0.5 mg tablet (Ativan) 0.25 mg PO BEDTIME 11/17/25 11/17/25 tacrolimus 0.1 % topical ointment 1 appl topical DAILY PRN 11/17/25 11/17/25 sebopsoriasis Previous Rx's ?Medication ?Instructions ?Recorded fluticasone propionate 50 1 spray intranasal DAILY Allergies 02/02/25 mcg/actuation nasal 30 days #16 grams spray,suspension montelukast 10 mg tablet 10 mg PO BEDTIME 90 days #90 tabs 02/02/25 ipratropium bromide 0.02 % 2.5 ml inhalation QID #300 mL 04/10/25 solution for inhalation albuterol sulfate 2.5 mg/3 mL 2.5 mg (3 mL) inhalation QID #360 06/19/25 (0.083 %) solution for nebulization mL albuterol sulfate 90 mcg/actuation 2 puff inhalation Q6H PRN 06/19/25 aerosol inhaler Respiratory Distress #8.5 grams theophylline 300 mg 300 mg PO Q12H #60 tabs 07/04/25 tablet,extended release,12 hr pantoprazole 40 mg tablet,delayed 40 mg PO BID 30 days #60 tabs 11/20/25 release pantoprazole 40 mg tablet,delayed 40 mg PO BID 30 days #60 tabs 11/20/25 release (Protonix) potassium chloride 10 mEq 20 meq (2 x 10 mEq) PO BID 15 days 11/20/25 capsule,extended release #60 caps Allergies Allergy/AdvReac Type Severity Reaction Status Date / Time fluoxetine Allergy Severe Irritable Verified 11/22/25 14:19 codeine (Codeine) Allergy Intermediate RESTLESS/RA Verified 11/22/25 14:19 SH haloperidol (Haldol) Allergy Intermediate Palpitation Verified 11/22/25 14:19 s Review of Systems Constitutional: Constitutional: Reports as per HPI [facility] Past Medical History Medical History Lung cancer Pulmonary nodule 1 cm or greater in diameter Lung mass RITA (obstructive sleep apnea) Cor pulmonale Rib fractures Pulmonary nodule Tubular adenoma of colon (~2006) Osteopenia (~2012) Bronchopneumonia Chest pain Chronic respiratory alkalosis ILD (interstitial lung disease) CO2 retention Acute on chronic respiratory failure with hypoxia and hypercapnia Bipolar depression Eczema Limb swelling Insomnia Bronchitis Vasomotor rhinitis COPD (chronic obstructive pulmonary disease) Chronic respiratory failure Fall Acute metabolic encephalopathy Acute and chronic respiratory failure with hypercapnia Surgical History History of carpal tunnel surgery (~2000) History of ventral hernia repair (~2003) History of left inguinal hernia repair (~1995) History of tracheostomy (~2016) History of cataract surgery (~2018) History of colonoscopy Family History Family History Other Hypertension Social History Social History Household Members: None Household Members Other:: Daughter, son-in-law, grandchildren Housing: Retirement Housing Other:: halfway Are you a primary primary care pediatrician to a significant other at home: No Do you presently have visiting nurse or other home services: No Alcohol intake: former Patient Tobacco Use Status: Former Tobacco user Tobacco use type: Cigarette Years Smoked: 20+ years Smoked in Last 30 Days: No e-Cigarette/Vaping Use: Never Used Second Hand Smoke Exposure: No Use of substances other than those prescribed or required for medical reasons: No Advance Directives: Yes Advance Directives on File: Yes Advance Directives Date on File: 11/30/21 service: No Current occupational status: disabled Physical Exam ED Exam Exam: ?General: Lethargic, no trauma ?CV: RRR, no obvious murmurs appreciated ?Resp: ?No wheezing rales rhonchi no stridor moving air well Abd: ?Bowel sounds are present, no tenderness no rebound no rigidity MSK: FROM, strength 5/5 all extremities, no lower extremity edema Skin: Warm, dry, intact, ?Neuro: ?Alert to self and location not year, moving upper and lower extremities symmetrically, no obvious facial asymmetry noted, cranial nerves 2-12 intact Vital Signs: Vital Signs - 24 hr 11/22/25 14:17 11/22/25 14:35 11/22/25 16:11 Temperature 98.8 F 99.1 F Pulse Rate 92 95 Respiratory Rate 18 16 21 H Blood Pressure 147/63 H Pulse Oximetry 95 91 L Oxygen Delivery Method Nasal Cannula Nasal Cannula Oxygen Flow Rate 4 Fraction of Inspired Oxygen 11/22/25 16:33 11/22/25 16:43 11/22/25 18:07 Temperature Pulse Rate 79 76 74 Respiratory Rate 18 20 18 Blood Pressure 121/62 111/62 Pulse Oximetry 92 88 L Oxygen Delivery Method BiPAP BiPAP Oxygen Flow Rate Fraction of Inspired Oxygen 45 11/22/25 18:10 11/22/25 20:19 11/22/25 21:27 Temperature Pulse Rate 77 Respiratory Rate 22 H 26 H Blood Pressure 119/60 Pulse Oximetry 92 96 Oxygen Delivery Method BiPAP CPAP Oxygen Flow Rate Fraction of Inspired Oxygen 45 11/22/25 22:09 11/23/25 00:00 11/23/25 00:36 Temperature 98.1 F Pulse Rate 84 63 Respiratory Rate 20 24 H 15 Blood Pressure 136/68 113/59 L Pulse Oximetry 93 97 Oxygen Delivery Method BiPAP Room Air Oxygen Flow Rate Fraction of Inspired Oxygen BMI result Body Mass Index 33.7 Course Course Course Narrative: 4:11 PM 11/22/2025 (Jamesbruno Gutiérrez Bruce HANLEY): Signed out to me pending repeat VBG on BiPAP. Eventual transition to high-flow and admission. For hypercapnic respiratory failure. 12:54 AM 11/23/2025 (Jamesbruno Gutiérrez Bruce HANLEY): Patient is mentating well. Transitioned to high-flow nasal cannula and observed here for past couple of hours. Patient is doing well. However whenever she moves. Her O2 saturation does drop to 85%. Patient will be admitted to the hospital for further management and care. Discussed the case with the hospitalist on Medications Administered Discontinued Medications Generic Name Dose Route Start Last Admin Trade Name Freq PRN Reason Stop Dose Admin Albuterol Sulfate 5 mg/ 0 mg 11/22/25 16:40 11/22/25 16:42 Albuterol/Ipratropium 3 ml INHALE 11/22/25 16:41 1 each ONCE ONE Administration Methylprednisolone Sodium Succinate 60 mg 11/22/25 16:20 11/22/25 16:46 Methylprednisolone Sod Succ 125 Mg/2 Ml Vial IVPUSH 11/22/25 16:21 60 mg ONCE ONE Administration Medical Decision Making Medical Decision Making MDM Narrative: 3:48 PM 11/22/2025 (Dr. Jeff Jack): Patient has we presenting after recent admission, it sounds like after speaking to the family that the BiPAP she is using at the nursing facility has never been switched over to machine she is able to either tolerate or that fits well and patient presented with lethargy, her CO2 is 90, I am going to place her back on BiPAP we will anticipate admission, she has received medical management just few days prior and so is really no indication for medication adjustments, her chest x-ray is somewhat similar to her priors will be signed out to incoming provider pending re-evaluation after I will BiPAP use and repeat VBG Differential Diagnosis Differential Diagnoses: The differential diagnosis associated with the presentation includes (Pneumonia, CHF, CO2 retention) Admission/Observation Consideration of admission/observation: Escalation of care including admission/observation considered Lab Data MDM Lab Attestation statement: I reviewed the patient's lab results. 11/22/25 14:41 11/22/25 14:41 Labs: Lab Results 11/22/25 11/22/25 11/22/25 Range/Units 14:41 14:48 19:18 WBC 5.9 (4.8-10.8) X10*3/uL RBC 3.19 L (4.20-5.50) X10*6/uL Hgb 8.0 L (12.0-16.0) g/dl Hct 29.3 L (37.0-47.0) % MCV 91.8 (80.0-98.0) fL MCH 25.1 L (27.0-33.0) pg MCHC 27.3 L (31.0-35.0) g/dl RDW 16.2 H (11.0-16.0) % Plt Count 386 (160-400) X10*3/uL MPV 8.4 L (9.4-12.3) fL Immature Gran % (Auto) 2.7 H (0.0-0.4) % Neut % (Auto) 73.3 H (45-73) % Lymph % (Auto) 8.1 L (20-40) % [place] % (Auto) 11.0 (2-11) % Eos % (Auto) 3.9 (0-4) % Baso % (Auto) 1.0 (0-2) % Lymph # (Auto) 0.5 L (1.2-4.9) X10*3/uL [place] # (Auto) 0.7 (0.1-1.2) X10*3/uL Eos # (Auto) 0.2 (0.0-0.4) X10*3/uL Baso # (Auto) 0.1 (0.0-0.2) X10*3/uL Abs Immat Gran (auto) 0.16 H (0.00-0.03) X10*3/uL Absolute Neuts (auto) 4.3 (2.0-8.3) x10*3/uL Absolute Nucleated RBC 0.020 H (0.0-0.012) X10*3/uL Nucleated RBC % (auto) 0.3 H (0.0-0.2) /100WBC VBG pH 7.33 7.41 (7.32-7.43) VBG pCO2 90 73 mmHg VBG pO2 109 42 mmHg VBG HCO3 48 H 47 H (22-26) mmol/L VBG O2 Saturation TNP TNP VBG Base Excess 19.3 19.4 mmol/L Sodium 142 (135-145) mmol/L Potassium 3.9 D (3.3-5.1) mmol/L Chloride 94 L (96-108) mmol/L Carbon Dioxide 43 H* (22-29) mmol/L Anion Gap 9 L (12-20) BUN 15 (9-16) mg/dL Creatinine 0.91 (0.5-1.4) mg/dL Estim Creat Clear Calc 61.2 Estimated GFR > 60 Random Glucose 119 H (60-115) mg/dL Lactic Acid 0.6 (0.5-2.0) mmol/L Calcium 9.1 (8.4-10.2) mg/dL Magnesium 2.7 H (1.6-2.6) mg/dL Total Bilirubin 0.2 (0.0-1.0) mg/dL AST 20 (5-31) U/L ALT 7 (0-31) U/L Alkaline Phosphatase 71 (39-117) U/L Ammonia 48 (13-55) umol/L Troponin I High Sens 6.6 (<3.5-17.0) ng/L NT-Pro-B Natriuret Pep 226.3 (<300) pg/mL Total Protein 6.4 L (6.5-8.0) g/dL Albumin 3.9 (3.5-5.0) g/dL Influenza Type A (PCR) NEGATIVE (Negative) Influenza Type B (PCR) NEGATIVE (Negative) RSV RNA Qual (PCR) NEGATIVE (Negative) SARS-CoV-2 RNA (RT-PCR) NEGATIVE (Negative) ABG Data Attestation ABG: I personally reviewed and interpreted this ABG as follows: (CO2 retention) Independent Interpretation I performed an independent interpretation of an: EKG Radiology Impression Discussion of test interpretation with radiology: I have reviewed the radiologist's reading. Radiologist Impression: XR/XR chest 1V IMPRESSION: Findings suggestive of interstitial pulmonary edema superimposed on chronic increased interstitial markings. Independent Historian Clinical information obtained from an independent historian. History obtained from or confirmed by: EMS and Other (daughter) External Record Review External record reviewed: Inpatient record Critical Care Time Critical Care Time Critical Care Time: Yes Total Critical Care Time: 40 Attestation: Time is exclusive of separately billable procedures. Time includes: direct patient care, patient reassessment, coordination of patient care, interpretation of data (laboratory data, pulse oximetry, arterial blood gases and chest xrays), review of patient's medical records, medical consultation and documentation of patient care. Procedures excluded from critical care time: central intravenous line placement and electrocardiography. Discharge Plan Discharge Clinical Impression: Chronic hypercapnic respiratory failure, COPD (chronic obstructive pulmonary disease), Lung cancer Patient Disposition: Admitted As Inpatient Print Language: Scottish
[2025-11-22 15:34] LABS: Resp Syncy Virus RNA Qual PCR NEGATIVE (Negative); SARS COV2 PCR INHOUSE NEGATIVE (Negative)
[2025-11-22] MEDS: Albuterol Sulfate 5 MG, Albuterol/Iprat 2.5/0.5MG 3 ML 3 ML INHALE (16:42)
--- NOTE | 2025-11-22 18:10 | PC.NURSE ---
pt was 86% on FiO2 35%. Call to RT, bumped up vent settings to 45%. SpO2 improved to 93
[2025-11-22 19:20] LABS: Venous Blood Gas Refer to POC result
[2025-11-22 19:22] LABS: VBG HCO3 47 mmol/L (22-26)
[2025-11-23] VITALS (12 sets, daily range): BP systolic 100–123; BP diastolic 44–60; PULSE 62–95; RESP 15–24; TEMP 36.2–37; O2SAT 92–100; BMI 32.5
--- NOTE | 2025-11-23 00:57 | PM.IMHP ---
History of Present Illness Date of Service: 11/23/25 Attending physician on admission: Tino Martinez Chief Complaint: Hypoxia Patient is a 70-year-old female with past medical history chronic hypoxia and hypercapnic respiratory failure due to COPD has been using 6 L home O2 and AVAPS, RITA on CPAP, AFib on Eliquis, mood disorder, cor pulmonale, hypertension, hyperlipidemia, obesity and lung cancer was sent back to the ED today via ambulance for hypoxiam hypercarbia. Patient had been discharged on 11/20 with issues related to anemia, positive stool for occult, requiring 1 unit of PRBCs, aphasia secondary to pulmonary issues. Patient was admitted for 3 days. Patient states she recently moved to [place] 2 months ago after living with her daughter. Prior to this patient was a member of the [employer] program and lived in an apartment on the grounds of [place]. Back then patient had been using AVAPS at home, more so the brand-name trilogy. Due to insurance currently patient is no longer eligible for the trilogy machine and states the machine she now has a day book is ineffective. (patient did show a picture of the machine and it does appear to possibly be a trilogy version) Patient states the respiratory company was out to reassess the effectiveness of her current device and no changes were made. There was a question of whether the mask fits properly as well. Patient does have a history of noncompliance with her AVAPS/trilogy and insight as to the advancement of her overall lung disease is considered fair. Patient currently states she wears her device through the night and then approximately 2 hours per day. It is possible that patient requires the machine more often during the day. Patient does remark that she remains a full code and understands that she may end up on a ventilator but if she has to be on the ventilator for a long period of time her daughter will have to make the decision to take her off. 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 Patient also complaining of chronic constipation and can not recall the last time she moved her bowels. Patient denies any chest pain or shortness of breath currently at rest. Patient is currently on high-flow, able to speak and follow commands. Patient can protect her airway at this time. Patient's sodium is 142, potassium 3.9, chloride 94, CO2 43. Pt is on diamoz three times per week. Renal function is stable. Lactic acid 0.6. Magnesium 2.7. Ammonia 48. BNP 226. VBG 7.41, 73, 42, 47. Viral testing negative for COVID, flu and RSV. Patient has no leukocytosis but does have chronic anemia with a current H&H of 8.0/ 29.3. Patient does take iron supplement daily. Theophylline levels in the past have been either low or stable but never supratherapeutic. Chest x-ray notes interstitial pulmonary edema. Patient has transitioned from nasal cannula to BiPAP to CPAP and now high-flow and appears to be alert and orientated appropriate for med [facility] admission. Review of Systems Review of Systems: Patient denies any chest pain, currently is not feeling short of breath at rest, is limited with ambulation due to her lung disease, denies any abdominal pain but is reporting ongoing chronic issues with constipation. Patient denies any lower leg pain, headaches, visual changes. Patient denies any recent falls. Yes all other systems are reviewed and are negative [facility] Medical History Lung cancer Pulmonary nodule 1 cm or greater in diameter Lung mass RITA (obstructive sleep apnea) Cor pulmonale Rib fractures Pulmonary nodule Tubular adenoma of colon (~2006) Osteopenia (~2012) Bronchopneumonia Chest pain Chronic respiratory alkalosis ILD (interstitial lung disease) CO2 retention Acute on chronic respiratory failure with hypoxia and hypercapnia Bipolar depression Eczema Limb swelling Insomnia Bronchitis Vasomotor rhinitis COPD (chronic obstructive pulmonary disease) Chronic respiratory failure Fall Acute metabolic encephalopathy Acute and chronic respiratory failure with hypercapnia Cognitive capacity: Alert and orientated x3 Functional capacity: wheelchair bound Patient : No Family History Other Hypertension Surgical History History of carpal tunnel surgery (~2000) History of ventral hernia repair (~2003) History of left inguinal hernia repair (~1995) History of tracheostomy (~2016) History of cataract surgery (~2018) History of colonoscopy Social History (Reviewed 11/23/25 @ 01:12 by AIDA ZhangP-BCRambo Household Members: None Household Members Other:: Daughter, son-in-law, grandchildren Housing: Care Home Housing Other:: shelter Are you a primary body care manager to a significant other at home: No Do you presently have visiting nurse or other home services: No Alcohol intake: former Patient Tobacco Use Status: Former Tobacco user Tobacco use type: Cigarette Years Smoked: 20+ years e-Cigarette/Vaping Use: Never Used Second Hand Smoke Exposure: No Advance Directives Date on File: 11/30/21 service: No Current occupational status: disabled Meds Allergies Allergy/AdvReac Type Severity Reaction Status Date / Time fluoxetine Allergy Severe Irritable Verified 11/22/25 14:19 codeine (Codeine) Allergy Intermediate RESTLESS/RA Verified 11/22/25 14:19 SH haloperidol (Haldol) Allergy Intermediate Palpitation Verified 11/22/25 14:19 s Active Medications: Current Medications Acetaminophen (Acetaminophen 325 Mg Tablet) 650 mg PO Q6H PRN PRN Reason: Pain, Mild 1-3,fever,headache Albuterol/Ipratropium (Albuterol/Iprat 2.5/0.5mg 3 Ml Ampul.Neb) 3 ml INHALE Q4H PRN PRN Reason: Shortness of Breath/Wheezing Calcium Carbonate (Calcium Carbonate 750 Mg Tab.Chew) 750 mg PO Q4H PRN PRN Reason: Heartburn Magnesium Hydroxide (Milk Of Magnesia 30 Ml Oral.Susp) 30 ml PO DAILY PRN PRN Reason: Constipation Melatonin (Melatonin 3 Mg Tablet) 6 mg PO BEDTIME PRN PRN Reason: Insomnia Ondansetron HCl (Ondansetron Hcl 4 Mg/2 Ml Vial) 4 mg IVPUSH Q8H PRN PRN Reason: Nausea and Vomiting Polyethylene Glycol (Polyethylene Glycol 3350 17 Gm Powd.Pack) 17 gm PO DAILY ALYSSA Senna (Sennosides 8.6 Mg Tablet) 17.2 mg PO BEDTIME ALYSSA Sodium Chloride (0.9 % Sodium Chloride Flush 3 Ml Syringe) 3 ml IVFLUSH QSHIFT ALYSSA Home Medications ?Medication ?Instructions ?Recorded ?Confirmed ?Last Taken ?Type alendronate 70 mg tablet (Fosamax) 70 mg PO DOMINGUEZ 02/09/21 11/17/25 08/04/25 History mirtazapine 15 mg tablet 7.5 mg PO BEDTIME 09/10/21 11/17/25 08/06/25 History sennosides 8.6 mg tablet (Senokot) 8.6 mg PO BEDTIME 09/10/21 11/17/25 08/05/25 History Oxygen Home Use 04/15/23 10/22/24 Unknown History nebulizers 04/15/23 10/22/24 Unknown History docusate sodium 100 mg capsule 100 mg PO DAILY PRN Constipation 07/27/24 11/17/25 08/19/24 History aripiprazole 10 mg tablet 10 mg PO DAILY 08/20/24 11/17/25 08/06/25 History omega 2-osh-kyx-fish oil 1,000 mg 1 cap PO BID 08/20/24 11/17/25 08/06/25 History (120 mg-180 mg) capsule (Fish Oil) apixaban 5 mg tablet (Eliquis) 5 mg PO BID 09/26/24 11/17/25 08/06/25 History gabapentin 100 mg capsule 100 mg PO BID 01/18/25 11/17/25 08/06/25 History ferrous gluconate 324 mg (38 mg 324 mg PO DAILY 07/25/25 11/17/25 08/06/25 History iron) tablet calcium carbonate (Oyster Shell 500 mg PO BID 08/06/25 11/17/25 Unknown History Calcium) cholecalciferol (vitamin D3) 25 25 mcg PO DAILY 08/06/25 11/17/25 Unknown History mcg (1,000 unit) tablet (Vitamin D3) fluticasone furoate 200 1 ea inhalation DAILY dyspnea 08/06/25 11/17/25 08/06/25 History mcg-vilanterol 25 mcg/dose inhalation powder (Breo Ellipta) furosemide 40 mg tablet 40 mg PO DAILY 08/06/25 11/17/25 08/06/25 History lactulose 10 gram/15 mL oral 15 ml PO DAILY PRN constipation 08/06/25 11/17/25 Unknown History solution (Enulose) lamotrigine 200 mg tablet 200 mg PO BID 08/06/25 11/17/25 08/06/25 History vilazodone 40 mg tablet 40 mg PO DAILY 08/06/25 11/17/25 08/06/25 History acetaminophen 325 mg tablet 650 mg PO Q4H PRN Fever/Pain 10/23/25 11/17/25 Unknown History acetazolamide 250 mg tablet 250 mg PO MOWEFR 10/23/25 11/17/25 Unknown History aspirin 81 mg tablet 81 mg PO DAILY 10/23/25 11/17/25 Unknown History atorvastatin 40 mg tablet 40 mg PO DAILY 10/23/25 11/17/25 Unknown History bisacodyl 10 mg rectal suppository [address] DAILY PRN Constipation 10/23/25 11/17/25 Unknown History guaifenesin 600 mg tablet, 1,200 mg PO BID PRN Congestion 10/23/25 11/17/25 Unknown History extended release 12 hr loratadine 10 mg tablet (Claritin) 10 mg PO DAILY 10/23/25 11/17/25 Unknown History magnesium hydroxide 400 mg/5 mL 30 ml PO DAILY PRN Constipation 10/23/25 11/17/25 Unknown History oral suspension (Milk of Magnesia) metoprolol succinate 100 mg 100 mg PO DAILY 10/23/25 11/17/25 Unknown History tablet,extended release 24 hr prednisone 10 mg tablet 10 mg PO DAILY 10/23/25 11/17/25 Unknown History sodium phosphates 19 gram-[address] DAILY PRN Constipation 10/23/25 11/17/25 Unknown History gram/197 mL enema (Fleet Enema Extra) tramadol 50 mg tablet 50 mg PO Q6H PRN Pain 10/23/25 11/17/25 Unknown History trazodone 50 mg tablet 25 mg PO BEDTIME Sleep 10/23/25 11/17/25 Unknown History betamethasone dipropionate 0.05 % 1 appl topical BID 11/17/25 11/17/25 Unknown History topical cream fluocinolone acetonide oil 0.01 % 5 drp otic (ears) BID PRN 11/17/25 11/17/25 Unknown History ear drops sebopsoriasis lorazepam 0.5 mg tablet (Ativan) 0.25 mg PO BEDTIME 11/17/25 11/17/25 Unknown History tacrolimus 0.1 % topical ointment 1 appl topical DAILY PRN 11/17/25 11/17/25 Unknown History sebopsoriasis Physical Exam Vital Signs and Narrative: Vital Signs: Last Vital Signs Temp 98.1 F 11/23/25 00:36 Pulse 63 11/23/25 00:36 Resp 15 11/23/25 00:36 BP 113/59 L 11/23/25 00:36 Pulse Ox 97 11/23/25 00:36 O2 Del Method Room Air 11/23/25 00:36 O2 Flow Rate 4 11/22/25 14:35 FiO2 45 11/22/25 18:10 Oxygen Flow Rate 2 11/22/25 14:17 BMI result Body Mass Index 33.7 Alert and orientated X3, able to give history. Short and long-term memory are mildly impaired. Neuro: CN II-X11 intact, no deficits, visual acuity intact EYES: PERRLA, EOM intact, sclerae nonicteric, conjunctiva pink ENT: hearing intact, no issues with swallowing, uvula midline, lips moist, nares patent no epistaxis Cardiac: S1 S2 RRR, no murmur, no JVD, no edema in Lower ext Pulmonary: lungs diminished bilaterally Abdominal: BS active in all 4 quadrants, no guarding, tenderness, rebounding, abdomen is soft MSK: strength 2-3/5 upper and lower extremities : no CVA tenderness no bladder distension Extremities: no edema in lower extremities, PT and DP pulses palpable +2 Psych: mood stable, judgement and insight fair Skin: No new rashes or lesions, denies any new open wounds Results Labs 11/22/25 14:41 11/22/25 14:41 Labs: Laboratory Results - last 24 hr 11/22/25 11/22/25 11/22/25 14:41 14:48 19:18 MCV 91.8 MCH 25.1 L MCHC 27.3 L RDW 16.2 H Plt Count 386 MPV 8.4 L Immature Gran % (Auto) 2.7 H Neut % (Auto) 73.3 H Lymph % (Auto) 8.1 L [place] % (Auto) 11.0 Eos % (Auto) 3.9 Baso % (Auto) 1.0 Lymph # (Auto) 0.5 L [place] # (Auto) 0.7 Eos # (Auto) 0.2 Baso # (Auto) 0.1 Abs Immat Gran (auto) 0.16 H Absolute Neuts (auto) 4.3 Absolute Nucleated RBC 0.020 H Nucleated RBC % (auto) 0.3 H VBG pH 7.33 7.41 VBG pCO2 90 73 VBG pO2 109 42 VBG HCO3 48 H 47 H VBG O2 Saturation TNP TNP VBG Base Excess 19.3 19.4 Anion Gap 9 L Estim Creat Clear Calc 61.2 Estimated GFR > 60 Random Glucose 119 H Lactic Acid 0.6 Calcium 9.1 Magnesium 2.7 H Total Bilirubin 0.2 AST 20 ALT 7 Alkaline Phosphatase 71 Ammonia 48 Troponin I High Sens 6.6 NT-Pro-B Natriuret Pep 226.3 Total Protein 6.4 L Albumin 3.9 Influenza Type A (PCR) NEGATIVE Influenza Type B (PCR) NEGATIVE RSV RNA Qual (PCR) NEGATIVE SARS-CoV-2 RNA (RT-PCR) NEGATIVE ECG Attestation: I personally reviewed and interpreted this ECG as follows: (Normal sinus rhythm with a QTC of 411 no ischemic changes) Prior ECG tracings: available for review Imaging Radiologist's Impressions: Impressions Chest X-Ray 11/22/25 15:10 IMPRESSION: Findings suggestive of interstitial pulmonary edema superimposed on chronic increased interstitial markings. Electronically signed by: Amandeep Murphy MD 11/22/2025 03:19 PM [facility] Assessment and Plan (1) Acute on chronic hypoxic respiratory failure: Status: Acute Plan Patient is a 70-year-old female with past medical history chronic hypoxia and hypercapnic respiratory failure due to COPD has been using 6 L home O2 and CPAP/BiPAP, RITA on CPAP, AFib on Eliquis, mood disorder, cor pulmonale, hypertension, hyperlipidemia, obesity and lung cancer was sent back to the ED today via ambulance for hypoxia and hypercarbia. Acute on chronic hypoxic respiratory failure with known centrilobular emphysema/chronic hypercapnea on diamox/interstitial pulmonary edema/ lung cancer with scarring Patient currently tolerating high-flow, able to be admitted to the med [facility] floor Patient normally on device all night and then 2 hours per day, may require more hours of support during the day Pulmonary consulted Patient is questioning her device at her home setting, does not feel it is working and would prefer to be back on the Trilogy machine: Patient states the insurance no longer covers this device. Patient has long history of noncompliance with her BiPAP/CPAP especially during the day. Patient's insight into her end-stage lung disease is fair to poor. Patient not aware of receiving palliative care at the day book setting but could be considered an appropriatre candidate. Case management consulted for review. Patient is started on methylprednisolone in the ED, this will continue twice daily Duo nebs p.r.n. LasixIV X1, contunue po lasix Theophylline level pending Viral studies negative for flu, COVID and RSV Continuous pulse ox monitoring, end-tidal CO2 monitoring Chronic BiPAP ordered at HS, settings obtained from previous admission RITA with chronic CO2 retention CPAP at HS, settings provided from previous admission Chronic anemia H&H currently stable 07/26 No indication for transfusion Continue ferrous gluconate daily Constipation MiraLax will now be daily Dulcolax suppository PRN Senna at HS Fiber added Lactulose PRN PAFIB Continue eliquis Continue BB GERD Omperazole 20 mg BID (equivalent to protonix 40 BID) Consider family meeting to discuss strategic planning specialist goals, options to include palliative care. DVT Prophylaxis: Eliquis MED REC PENDING FULL CODE Patient will require at least a 2 midnight stay for close hemodynamic monitoring with clinical risk of overt decline, expert consultation with Pulmonary and possible case management involvement to include family meeting to discuss long-term goals of care to include palliative care consult, if not already implemented. Quality Stroke Does the patient have a stroke diagnosis?: No Reason for No Anti-thrombotic by Day Two: N/A - Med Ordered VTE Prior VTE?: No VTE Risk Level:: Medical - moderate - high VTE Device Contraindication: N/A - Device Ordered VTE Drug Contraindication: N/A - Med Ordered
[2025-11-23] MEDS: Furosemide 20 MG/2 ML VIAL IVPUSH (01:27)
[2025-11-23 04:52] LABS: MANUAL DIFF FLAG NO
[2025-11-23 04:53] LABS: Hematocrit 28.7 % (37.0-47.0); Hemoglobin 7.7 g/dl (12.0-16.0); Imm Gran Abs Auto 0.09 X10*3/uL (0.00-0.03); Imm Gran Pct Auto 1.8 % (0.0-0.4); Lymphocytes Absolute Auto 0.3 X10*3/uL (1.2-4.9); Mean Corpuscular HGB Conc 26.8 g/dl (31.0-35.0); Mean Corpuscular Hemoglobin 24.7 pg (27.0-33.0); Mean Corpuscular Volume 92.0 fL (80.0-98.0); NRBC Abs Auto 0.000 X10*3/uL (0.0-0.012); NRBC Pct Auto 0.0 /100WBC (0.0-0.2); Platelet Count 400 X10*3/uL (160-400); Red Blood Count 3.12 X10*6/uL (4.20-5.50); White Blood Count 5.1 X10*3/uL (4.8-10.8)
--- NOTE | 2025-11-23 07:27 | PHA.MEDREC ---
Pharmacy Consult ? Medication Reconciliation Pharmacy has completed the medication reconciliation. Utilized list from [facility]
--- NOTE | 2025-11-23 08:17 | MHC.EDTECH ---
PT OOB with x2 tech to the commode of 2 L NC. When PT returned to bed she was satting in the 60% with good pleath and increased work of breath. Pts O2 bumped to 5L with with improvement, satting at 92%. Per DO Patterson, PT is to remain in bed to prevent further exertion.
[2025-11-23 08:49] LABS: Alanine Aminotransferase 8 U/L (0-31); Albumin Level 3.7 g/dL (3.5-5.0); Alkaline Phosphatase 66 U/L (39-117); Anion Gap 11 (12-20); Aspartate Amino Transferase 17 U/L (5-31); Blood Urea Nitrogen 14 mg/dL (9-16); Calcium 8.6 mg/dL (8.4-10.2); Carbon Dioxide 40 mmol/L (22-29); Chloride 96 mmol/L (96-108); Creatinine Clr Calc Pharmacy 65.5; Estimated Glomerular Filt Rate > 60; Potassium 4.4 mmol/L (3.3-5.1); Sodium 143 mmol/L (135-145); Total Protein 6.1 g/dL (6.5-8.0)
[2025-11-23] MEDS: calcium polycarbophiL TABLET 1 TAB PO (09:04)
--- NOTE | 2025-11-23 13:54 | HO.PM.IMPN ---
Subjective Subjective Date of Service: 11/23/25 Interval History: dyspnea slow to improve Review of Systems Review of Systems: Yes all other systems are reviewed and are negative Physical Exam Exam: Exam: Frail elderly female , slow speech Pale appearing Anicteric NC in place with audible wheezing Abdomen soft, nontender, nondistended, no guarding Mild pitting peripheral edema Alert, oriented x 3 , poor insight Vital Signs: Vital Signs: Last Vital Signs Temp 98.6 F 11/23/25 06:06 Pulse 64 11/23/25 07:38 Resp 18 11/23/25 07:38 BP 108/60 11/23/25 07:38 Pulse Ox 100 11/23/25 07:38 O2 Del Method BiPAP 11/23/25 07:38 O2 Flow Rate 40 11/23/25 06:06 FiO2 45 11/22/25 18:10 Oxygen Flow Rate 2 11/22/25 14:17 BMI result Body Mass Index 33.7 Objective Data Active Medications Acetaminophen (Acetaminophen 325 Mg Tablet) 650 mg PO Q6H PRN PRN Reason: Pain, Mild 1-3,fever,headache Albuterol/Ipratropium (Albuterol/Iprat 2.5/0.5mg 3 Ml Ampul.Neb) 3 ml INHALE Q4H PRN PRN Reason: Shortness of Breath/Wheezing Bisacodyl (Bisacodyl 10 Mg Supp.Rect) 10 mg TN BEDTIME PRN PRN Reason: Constipation Calcium Carbonate (Calcium Carbonate 750 Mg Tab.Chew) 750 mg PO Q4H PRN PRN Reason: Heartburn Calcium Polycarbophil (Calcium Polycarbophil Tablet) 1 tab PO DAILY [facility] Last Admin: 11/23/25 09:04 Dose: 1 tab Documented By: ODALIS Lactulose (Lactulose 20 Gm/30 Ml Solution) 30 gm PO DAILY PRN PRN Reason: Constipation Magnesium Hydroxide (Milk Of Magnesia 30 Ml Oral.Susp) 30 ml PO DAILY PRN PRN Reason: Constipation Melatonin (Melatonin 3 Mg Tablet) 6 mg PO BEDTIME PRN PRN Reason: Insomnia Methylprednisolone Sodium Succinate (Methylprednisolone Sod Succ 125 Mg/2 Ml Vial) 60 mg IVPUSH Q12H [facility] Last Admin: 11/23/25 06:08 Dose: 60 mg Documented By: PATRICA Omeprazole (Omeprazole 20 Mg Capsule.) 20 mg PO BID@0630,1630 [facility] Last Admin: 11/23/25 06:08 Dose: 20 mg Documented By: PATRICA Ondansetron HCl (Ondansetron Hcl 4 Mg/2 Ml Vial) 4 mg IVPUSH Q8H PRN PRN Reason: Nausea and Vomiting Polyethylene Glycol (Polyethylene Glycol 3350 17 Gm Powd.Pack) 17 gm PO DAILY [facility] Last Admin: 11/23/25 09:04 Dose: 17 gm Documented By: ODALIS Senna (Sennosides 8.6 Mg Tablet) 17.2 mg PO BEDTIME [facility] Sodium Chloride (0.9 % Sodium Chloride Flush 3 Ml Syringe) 3 ml IVFLUSH QSHIFT [facility] Last Admin: 11/23/25 08:57 Dose: Not Given Documented By: ODALIS Non-Admin Reason: Patient Asleep Labs 11/23/25 04:24 11/23/25 04:24 Labs: Laboratory Results - last 24 hr 11/22/25 11/22/25 11/22/25 14:41 14:48 19:18 MCV 91.8 MCH 25.1 L MCHC 27.3 L RDW 16.2 H Plt Count 386 MPV 8.4 L Immature Gran % (Auto) 2.7 H Neut % (Auto) 73.3 H Lymph % (Auto) 8.1 L [place] % (Auto) 11.0 Eos % (Auto) 3.9 Baso % (Auto) 1.0 Lymph # (Auto) 0.5 L [place] # (Auto) 0.7 Eos # (Auto) 0.2 Baso # (Auto) 0.1 Abs Immat Gran (auto) 0.16 H Absolute Neuts (auto) 4.3 Absolute Nucleated RBC 0.020 H Nucleated RBC % (auto) 0.3 H VBG pH 7.33 7.41 VBG pCO2 90 73 VBG pO2 109 42 VBG HCO3 48 H 47 H VBG O2 Saturation TNP TNP VBG Base Excess 19.3 19.4 Anion Gap 9 L Estim Creat Clear Calc 61.2 Estimated GFR > 60 Random Glucose 119 H Lactic Acid 0.6 Calcium 9.1 Magnesium 2.7 H Total Bilirubin 0.2 AST 20 ALT 7 Alkaline Phosphatase 71 Ammonia 48 Troponin I High Sens 6.6 NT-Pro-B Natriuret Pep 226.3 Total Protein 6.4 L Albumin 3.9 Influenza Type A (PCR) NEGATIVE Influenza Type B (PCR) NEGATIVE RSV RNA Qual (PCR) NEGATIVE SARS-CoV-2 RNA (RT-PCR) NEGATIVE 11/23/25 04:24 MCV 92.0 MCH 24.7 L MCHC 26.8 L RDW 16.2 H Plt Count 400 MPV 9.2 L Immature Gran % (Auto) 1.8 H Neut % (Auto) 87.2 H Lymph % (Auto) 5.5 L [place] % (Auto) 5.1 Eos % (Auto) 0.2 Baso % (Auto) 0.2 Lymph # (Auto) 0.3 L [place] # (Auto) 0.3 Eos # (Auto) 0.0 Baso # (Auto) 0.0 Abs Immat Gran (auto) 0.09 H Absolute Neuts (auto) 4.4 Absolute Nucleated RBC 0.000 Nucleated RBC % (auto) 0.0 VBG pH VBG pCO2 VBG pO2 VBG HCO3 VBG O2 Saturation VBG Base Excess Anion Gap 11 L Estim Creat Clear Calc 65.5 Estimated GFR > 60 Random Glucose 116 H Lactic Acid Calcium 8.6 Magnesium Total Bilirubin 0.2 AST 17 ALT 8 Alkaline Phosphatase 66 Ammonia Troponin I High Sens NT-Pro-B Natriuret Pep Total Protein 6.1 L Albumin 3.7 Influenza Type A (PCR) Influenza Type B (PCR) RSV RNA Qual (PCR) SARS-CoV-2 RNA (RT-PCR) Assessment and Plan (1) COPD exacerbation: Status: Deleted Plan 70-year-old female with a past medical history of HTN, HLD, COPD, chronic respiratory failure on 6 L of home oxygen, cor pulmonale, paroxysmal AFib on Eliquis, RITA on BiPAP at night, lung cancer s/p XRT (no further rx tolerated); who was recently admitted from 11/17-11/20 for AC ABLA, Bipap settings being adjusted and is back <2 days post DC for similar concerns of Bipap not fitting. # Chronic Hypercarbic resp failure - 2-3L at rest, 6L on minimal ambulation #End stage COPD #Pulm cahexia - chronic , baseline # Severe emphysematous changes - chronic #Known RITA on BiPAP nocturnally -unable to tolerate, but indicated #Known Severe emphysema-chronic #Known Multinodular pulmonary defects-likely mets outpatient palm follow-up Pulm patel, she is at her baseline, labs and workup reassuring, likely severe anxiety from pt and family members (pt is known to destaurate to low 40s nocturnally and pt was advised many times not to check pulse Ox as this only causes her to exacerbate her anxiety and belief that she is not getting any better Will attempt to reach out to primary mill hand plate mill - AGAIN as the family believes her LTC place doesnt have her BIPAP Per who had seen and spoken to the pt and her family - both son and daughter over the phone explaining the rationale for trilogy non invasive ventilator. She does not need a Bipap. Pt and family need family talk - I've been attempting discussions for months and will continue to engage Cont home meds & Bipap noninvasive ventilator use with 6L O2. Mask adjustment per Data Entry Operator - needs prior auth- recently changed mask continue Breo, Incruse- switching to formulary meds while in pt continue Ohtuvayre- Op med goal O2- 88-92% weight management lasix as needed Diamox MWF Cont steroids #ABLA prior admission No intervention as she her multiple medical comorbidities are limiting GI consulted prior admission, not a candidate for EGD or Eliquis (for Afib) PPI daily CBC transfuse if <7 Chronic medical conditions: # Known Lung cancer status post chemo and radiation-not a candidate for either per Oncology per patient Regarding lung cancer-patient reports she had follow-up outpatient 1 month ago and she used to the her PET scan showed resolution and although she is not a candidate for further chemo radiation her baseline morbidities OP Oncology f/up I'm unable to review her records in EMR Pt still has the port RUL - OP settings mx #Paroxysmal AFib on Eliquis Resume Eliquis today #CAD-continue home meds #HTN Continue home management #Mood disorders Continue home meds #Osteoporosis Continue home meds DVT prophylaxis with SCD boots for now Guarded prognosis, goals of care discussion had with the patient-full code. Disposition: Patient needs ongoing inpatient care as the patient needs pulm consult and reassurance regarding bipap vs trilegy machine settings. This note is constructed using voice recognition software. While every effort has been made to ensure accuracy, software engineering analyst errors may have been included. Quality Stroke Does the patient have a stroke diagnosis?: No Reason for No Anti-thrombotic by Day Two: N/A - Med Ordered VTE Prior VTE?: No VTE Risk Level:: Medical - moderate - high VTE Device Contraindication: N/A - Device Ordered VTE Drug Contraindication: N/A - Med Ordered
[2025-11-23] MEDS: Ipratropium Bromide 0.5 MG/2.5 ML SOLUTION INHALE ×2 (15:53→19:42)
[2025-11-23] MEDS: Albuterol Sulfate (0.083%) 2.5 MG/3 ML VIAL.NEB INHALE ×2 (15:53→19:42)
[2025-11-23] MEDS: 0.9 % Sodium Chloride Flush 3 ML SYRINGE IVFLUSH ×2 (16:06→22:38)
--- NOTE | 2025-11-23 18:01 | PC.NURSE ---
Pt is pleasant, alert and oriented. Appears restful. Decreased to 2lpm by RT via nc with sat maintaining around mid 90s however while eating dinner pt down to 77%, increased to 4lpm via nc and sat 92% at this time. Skin pwd. Awaits bed assgn.
[2025-11-23 19:01] LABS: Theophylline 0.8
--- NOTE | 2025-11-23 19:23 | PC.NURSE ---
Report taken from Cynthia RN assumed care of pt at this time. Pt A&Ox3 skin pwd respirations even unlabored. Offers no complaints. VSS, 95% on 4l O2 via NC. Awaiting bed assignment for admission, aware of plan of care.
--- NOTE | 2025-11-23 20:57 | PC.ADMIT ---
70 female from longterm presenting for hypoxia. Hx COPD on 6L NC at baseline. Uses bipap at facility at night, states mask ill fitting, has machine with her. A&Ox3 denies pain. Negative viral panel. Right port accessed and 18g to right AC, purewick in place. SpO2 95% on 4L tolerating well. Dsats with any exertion.
[2025-11-23] MEDS: Theophylline Anhydrous ER 300 MG TAB.ER.12H PO (22:34)
[2025-11-23] MEDS: Calcium Oyster Shell Elemental 500 MG TABLET PO (22:35)
[2025-11-23] MEDS: traZODone HCL 25 MG HALFTAB 12.5 MG PO (22:36)
[2025-11-24] VITALS (12 sets, daily range): BP systolic 112–136; BP diastolic 55–99; PULSE 58–113; RESP 16–20; TEMP 35.8–36.2; O2SAT 90–100
[2025-11-24 06:13] LABS: MANUAL DIFF FLAG NO
[2025-11-24 06:18] LABS: Hematocrit 26.8 % (37.0-47.0); Hemoglobin 7.4 g/dl (12.0-16.0); Imm Gran Abs Auto 0.06 X10*3/uL (0.00-0.03); Imm Gran Pct Auto 0.9 % (0.0-0.4); Lymphocytes Absolute Auto 0.4 X10*3/uL (1.2-4.9); Mean Corpuscular HGB Conc 27.6 g/dl (31.0-35.0); Mean Corpuscular Hemoglobin 25.0 pg (27.0-33.0); Mean Corpuscular Volume 90.5 fL (80.0-98.0); NRBC Abs Auto 0.000 X10*3/uL (0.0-0.012); NRBC Pct Auto 0.0 /100WBC (0.0-0.2); Platelet Count 420 X10*3/uL (160-400); Red Blood Count 2.96 X10*6/uL (4.20-5.50); White Blood Count 6.4 X10*3/uL (4.8-10.8)
[2025-11-24 07:04] LABS: Alanine Aminotransferase 6 U/L (0-31); Albumin Level 3.6 g/dL (3.5-5.0); Alkaline Phosphatase 62 U/L (39-117); Anion Gap 9 (12-20); Aspartate Amino Transferase 14 U/L (5-31); Blood Urea Nitrogen 19 mg/dL (9-16); Calcium 9.1 mg/dL (8.4-10.2); Carbon Dioxide 42 mmol/L (22-29); Chloride 95 mmol/L (96-108); Creatinine Clr Calc Pharmacy 81.6; Estimated Glomerular Filt Rate > 60; Magnesium 2.2 mg/dL (1.6-2.6); Potassium 3.8 mmol/L (3.3-5.1); Sodium 142 mmol/L (135-145); Total Protein 6.1 g/dL (6.5-8.0)
--- NOTE | 2025-11-24 07:47 | P.PNIM_ITS ---
Subjective Subjective Date of Service: 11/24/25 Interval History: dyspnea slow to improve Reports no acute events on using her trilogy equipment overnight Review of Systems Review of Systems: Yes all other systems are reviewed and are negative Physical Exam 2 Exam: Exam: Frail elderly female , slow speech Pale appearing Anicteric NC in place with audible wheezing Abdomen soft, nontender, nondistended, no guarding Mild pitting peripheral edema Alert, oriented x 3 , poor insight Vital Signs: Vital Signs: Last Vital Signs Temp 96.5 F L 11/24/25 02:19 Pulse 58 11/24/25 02:19 Resp 17 11/24/25 02:19 BP 112/59 L 11/24/25 02:19 Pulse Ox 92 11/24/25 02:19 O2 Del Method CPAP 11/24/25 02:19 O2 Flow Rate 6 11/23/25 22:26 FiO2 45 11/22/25 18:10 Oxygen Flow Rate 2 11/22/25 14:17 BMI result Body Mass Index 32.5 Objective Data Active Medications Acetaminophen (Acetaminophen 325 Mg Tablet) 650 mg PO Q4H PRN PRN Reason: Fever/Pain Acetazolamide (Acetazolamide 250 Mg Tablet) 250 mg PO MOWEFR [facility] Albuterol Sulfate (Albuterol Sulfate (0.083%) 2.5 Mg/3 Ml Vial.Neb) 2.5 mg INHALE RQID [facility] Last Admin: 11/23/25 19:42 Dose: 2.5 mg Documented By: KAYLEEN Albuterol Sulfate (Albuterol Sulfate 90 Mcg 8 Gm Inhaler) 2 puff INHALE Q6H PRN PRN Reason: Respiratory Distress Albuterol/Ipratropium (Albuterol/Iprat 2.5/0.5mg 3 Ml Ampul.Neb) 3 ml INHALE Q4H PRN PRN Reason: Shortness of Breath/Wheezing Apixaban (Apixaban 5 Mg Tablet) 5 mg PO BID [facility] Last Admin: 11/23/25 22:34 Dose: 5 mg Documented By: PIERRE Aripiprazole (Aripiprazole 10 Mg Tablet) 10 mg PO DAILY [facility] Aspirin (Aspirin Enteric Coated 81 Mg Tablet.Dr) 81 mg PO DAILY [facility] Atorvastatin Calcium (Atorvastatin Calcium 40 Mg Tablet) 40 mg PO DAILY [facility] Bisacodyl (Bisacodyl 10 Mg Supp.Rect) 10 mg NC DAILY PRN PRN Reason: Constipation Calcium Carbonate (Calcium Carbonate 750 Mg Tab.Chew) 750 mg PO Q4H PRN PRN Reason: Heartburn Calcium Carbonate (Calcium Oyster Shell Elemental 500 Mg Tablet) 500 mg PO BID [facility] Last Admin: 11/23/25 22:35 Dose: 500 mg Documented By: PIERRE Calcium Polycarbophil (Calcium Polycarbophil Tablet) 1 tab PO DAILY [facility] Last Admin: 11/23/25 09:04 Dose: 1 tab Documented By: ODALIS Docusate Sodium (Docusate Sodium 100 Mg Capsule) 100 mg PO DAILY PRN PRN Reason: Constipation Ferrous Sulfate (Ferrous Sulfate 324 Mg Tablet.Dr) 324 mg PO DAILY [facility] Fluticasone Propionate (Fluticasone Propionate Nasal 16 Gm [place]) 1 spray NOSTRIL-B DAILY [facility] Fluticasone/Vilanterol (Fluticasone/Vilanterol 200/25 Blst.W.Dev) 1 puff INHALE RDAILY [facility] Furosemide (Furosemide 20 Mg Tablet) 20 mg PO DAILY [facility]; Protocol Gabapentin (Gabapentin 100 Mg Capsule) 100 mg PO BID [facility] Last Admin: 11/23/25 22:35 Dose: 100 mg Documented By: PIERRE Guaifenesin (Guaifenesin [place] 600 Mg Tab.Er.12h) 1,200 mg PO BID PRN PRN Reason: Congestion Ipratropium [place] (Ipratropium [place] 0.5 Mg/2.5 Ml Solution) 0.5 mg INHALE RQID [facility] Last Admin: 11/23/25 19:42 Dose: 0.5 mg Documented By: KAYLEEN Lactulose (Lactulose 20 Gm/30 Ml Solution) 10 gm PO DAILY PRN PRN Reason: Constipation Lamotrigine (Lamotrigine 100 Mg Tablet) 200 mg PO BID [facility] Last Admin: 11/23/25 22:34 Dose: 200 mg Documented By: PIERRE Loratadine (Loratadine 10 Mg Tablet) 10 mg PO DAILY [facility] Lorazepam (Lorazepam 0.5 Mg Tablet) 0.25 mg PO BEDTIME [facility] Last Admin: 11/23/25 22:36 Dose: 0.25 mg Documented By: PIERRE Magnesium Hydroxide (Milk Of Magnesia 30 Ml Oral.Susp) 30 ml PO DAILY PRN PRN Reason: Constipation Melatonin (Melatonin 3 Mg Tablet) 6 mg PO BEDTIME PRN PRN Reason: Insomnia Methylprednisolone Sodium Succinate (Methylprednisolone Sod Succ 125 Mg/2 Ml Vial) 60 mg IVPUSH Q12H [facility] Last Admin: 11/24/25 05:55 Dose: 60 mg Documented By: PIERRE Metoprolol Succinate (Metoprolol Succinate Er 100 Mg Tab.Er.24h) 100 mg PO DAILY [facility]; Protocol Mirtazapine (Mirtazapine 7.5 Mg Tablet) 7.5 mg PO BEDTIME [facility] Last Admin: 11/23/25 22:35 Dose: 7.5 mg Documented By: PIERRE Montelukast Sodium (Montelukast Sodium 10 Mg Tablet) 10 mg PO BEDTIME [facility] Last Admin: 11/23/25 22:35 Dose: 10 mg Documented By: PIERRE Non-Formulary Medication (Tacrolimus) 1 appl TOPICAL DAILY PRN PRN Reason: sebopsoriasis Omeprazole (Omeprazole 20 Mg Capsule.) 20 mg PO BID@0630,1630 [facility] Last Admin: 11/24/25 05:55 Dose: 20 mg Documented By: PIERRE Ondansetron HCl (Ondansetron Hcl 4 Mg/2 Ml Vial) 4 mg IVPUSH Q8H PRN PRN Reason: Nausea and Vomiting Polyethylene Glycol (Polyethylene Glycol 3350 17 Gm Powd.Pack) 17 gm PO DAILY [facility] Last Admin: 11/23/25 09:04 Dose: 17 gm Documented By: ODALIS Senna (Sennosides 8.6 Mg Tablet) 8.6 mg PO BEDTIME [facility] Last Admin: 11/23/25 22:34 Dose: 8.6 mg Documented By: PIERRE Sodium Biphosphate/Sodium Phosphate (Sodium Phosphate,[place]-Dibasic 133 Ml Enema) 118 ml NC DAILY PRN PRN Reason: Constipation Sodium Chloride (0.9 % Sodium Chloride Flush 3 Ml Syringe) 3 ml IVFLUSH QSHIFT [facility] Last Admin: 11/23/25 22:38 Dose: 3 ml Documented By: PIERRE Theophylline (Theophylline Anhydrous Er 300 Mg Tab.Er.12h) 300 mg PO BID [facility] Last Admin: 11/23/25 22:34 Dose: 300 mg Documented By: PIERRE Trazodone HCl (Trazodone Hcl 25 Mg Halftab) 12.5 mg PO BEDTIME [facility] Last Admin: 11/23/25 22:36 Dose: 12.5 mg Documented By: PIERRE Triamcinolone Acetonide (Triamcinolone Acet 0.5 % Cream 15 Gm Tube) 1 appl TOPICAL BID [facility]; Protocol Last Admin: 11/23/25 22:40 Dose: Not Given Documented By: PIERRE Non-Admin Reason: Med Not Available Vitamin D (Cholecalciferol (Vitamin D3) 25 Mcg Tablet) 25 mcg PO DAILY [facility] Labs 11/24/25 05:55 11/24/25 05:55 Labs: Laboratory Results - last 24 hr 11/23/25 11/24/25 04:24 05:55 MCV 90.5 MCH 25.0 L MCHC 27.6 L RDW 16.0 Plt Count 420 H MPV 9.1 L Immature Gran % (Auto) 0.9 H Neut % (Auto) 88.0 H Lymph % (Auto) 5.6 L [place] % (Auto) 5.1 Eos % (Auto) 0.2 Baso % (Auto) 0.2 Lymph # (Auto) 0.4 L [place] # (Auto) 0.3 Eos # (Auto) 0.0 Baso # (Auto) 0.0 Abs Immat Gran (auto) 0.06 H Absolute Neuts (auto) 5.6 Absolute Nucleated RBC 0.000 Nucleated RBC % (auto) 0.0 Anion Gap 11 L 9 L Estim Creat Clear Calc 65.5 81.6 Estimated GFR > 60 > 60 Random Glucose 116 H 129 H Calcium 8.6 9.1 Magnesium 2.2 Total Bilirubin 0.2 0.1 AST 17 14 ALT 8 6 Alkaline Phosphatase 66 62 Total Protein 6.1 L 6.1 L Albumin 3.7 3.6 Theophylline 0.8 Microbiology Microbiology Results: Microbiology 11/22/25 14:53 Blood Culture - Preliminary Blood - Venous No growth after 24 hours. 11/22/25 14:53 Blood Culture - Preliminary Blood - Venous No growth after 24 hours. Assessment and Plan (1) COPD exacerbation: Status: Deleted Plan 70-year-old female with a past medical history of HTN, HLD, COPD, chronic respiratory failure on 6 L of home oxygen, cor pulmonale, paroxysmal AFib on Eliquis, RITA on BiPAP at night, lung cancer s/p XRT (no further rx tolerated); who was recently admitted from 11/17-11/20 for AC ABLA, Bipap settings being adjusted and is back <2 days post DC for similar concerns of Bipap vs CPAP machine at facility . 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 Cont home meds & Bipap noninvasive ventilator use with 6L O2. Mask adjustment per [employer] - needs prior auth- recently changed mask continue Breo, Incruse- switching to formulary meds while in pt continue Ohtuvayre- Op med goal O2- 88-92% weight management lasix as needed Diamox MWF Cont steroids #ABLA prior admission No intervention as she her multiple medical comorbidities are limiting GI consulted prior admission, not a candidate for EGD or Eliquis (for Afib) Continue PPI daily CBC transfuse if <7 Chronic medical conditions: # Known Lung cancer status post chemo and radiation-not a candidate for either per Oncology per patient Regarding lung cancer-patient reports she had follow-up outpatient 1 month ago and she used to the her PET scan showed resolution and although she is not a candidate for further chemo radiation her baseline morbidities OP Oncology f/up I'm unable to review her records in EMR Pt still has the port RUL - OP settings mx #Paroxysmal AFib on Eliquis Resume Eliquis today #CAD-continue home meds #HTN Continue home management #Mood disorders Continue home meds #Osteoporosis Continue home meds DVT prophylaxis with SCD boots for now Guarded prognosis, goals of care discussion had with the patient-full code. Multiple reassurances given both to the patient and the family Will attempt to reach out to primary emanations analysis technician - AGAIN as the family believes her LTC place doesnt have her BIPAP Per who had seen and spoken to the pt and her family - both son and daughter over the phone explaining the rationale for trilogy non invasive ventilator. She does not need a Bipap. Pt and family need family talk - I've been attempting discussions for months and will continue to engage Disposition: Patient needs ongoing inpatient care as the patient needs pulm consult and reassurance regarding bipap vs trilegy machine settings. If logistics sorted regarding the mass, patient can return back to her long-term care with the appropriate mask with close pulmonary follow-up. This note is constructed using voice recognition software. While every effort has been made to ensure accuracy, workforce planner errors may have been included. Quality Stroke Does the patient have a stroke diagnosis?: No Reason for No Anti-thrombotic by Day Two: N/A - Med Ordered VTE Prior VTE?: No VTE Risk Level:: Medical - moderate - high VTE Device Contraindication: N/A - Device Ordered VTE Drug Contraindication: N/A - Med Ordered
[2025-11-24] MEDS: Albuterol Sulfate (0.083%) 2.5 MG/3 ML VIAL.NEB INHALE ×4 (08:23→19:27)
[2025-11-24] MEDS: Ipratropium Bromide 0.5 MG/2.5 ML SOLUTION INHALE ×4 (08:23→19:27)
[2025-11-24] MEDS: Theophylline Anhydrous ER 300 MG TAB.ER.12H PO ×2 (09:28→20:23)
[2025-11-24] MEDS: 0.9 % Sodium Chloride Flush 3 ML SYRINGE IVFLUSH ×2 (09:28→20:24)
[2025-11-24] MEDS: Calcium Oyster Shell Elemental 500 MG TABLET PO ×2 (09:28→20:22)
[2025-11-24] MEDS: calcium polycarbophiL TABLET 1 TAB PO (09:28)
[2025-11-24] MEDS: Aspirin Enteric Coated 81 MG TABLET.DR PO (09:28)
[2025-11-24] MEDS: Metoprolol Succinate ER 100 MG TAB.ER.24H PO (09:29)
[2025-11-24] MEDS: Ferrous Sulfate 324 MG TABLET.DR PO (09:30)
--- NOTE | 2025-11-24 14:46 | MHC.CM.PN ---
Addendum entered by Marya Goncalves 11/24/25 15:37: Patient has been seen by Dr Acharya, Pulmonary. He requested a referral be sent to [facility]. A referral with clinical information has been sent to the facility. Original Note: IMM 11/24/25 BIBA Dx Hypoxic respiratory failure She is LTC @ [facility] rollator Oxygen continuous IVAPS/Trilogy at bedside HCP is on file DP return to [facility] via BLS when medically cleared.
--- NOTE | 2025-11-24 18:02 | PM.CNPUL ---
History of Present Illness History of Present Illness Consult date: 11/24/25 Chief complaint: Acute Hypoxic Respiratory Failure Narrative: This is an inpatient pulmonary consultation. The patient is a 70 year woman with known history of advanced COPD and emphysema, chronic hypercarbic and hypoxic respiratory failure with a baseline pCO2 around 70 mmHg requiring between 3 to 6 L of oxygen per minute, cor pulmonale, lung cancer status post stereotactic radiation in chemotherapy that she could not tolerate who was recently admitted to [facility] with delirium found to have severe anemia, iron deficiency. The patient currently is residing in a half-way and she was brought back to the hospital due to worsening respiratory symptoms. The patient does have a noninvasive ventilator there with AVAP settings which appears to be effective. however, the patient is complaining of worsening respiratory symptoms. I did speak to the family these afternoon. This was via video telephone. Explained to the patient has advanced COPD. Explained to the patient has had it this is not from lack of response to the noninvasive ventilator it issues the patient needs additional time on the ventilator. Explained the difference between AVAPS versus BiPAP and home much more superior AVAPS is for her. The only reason to switch over to a BiPAP would be If the Noninvasive ventilators not available. The the patient's family is concerned that if she spends additional time on the noninvasive ventilator that she would not have the ability to participate in the activities of the half-way. I explained to the patient and also the family that the noninvasive ventilator has a battery life around 6-8 hours so therefore his very portable. We will talk to the [employer] that her current half-way is working with, [employer] to make sure that they provide the necessary components to allow her to have some mobility outside of her room with the noninvasive ventilator. Her current mask, F30 I seems to be a good comfortable fit for the patient therefore will continue. As far as her chest x-ray did I personally reviewed demonstrating some interstitial changes suggesting some indeed of congestion. The patient is currently on diuretics. Explained to the patient and also her family that she does have an a very advanced conditional respiratory failure and any comorbidities such as volume overload, sickness, anemia can result in acute worsening of her compensated condition. Review of Systems Constitutional: Constitutional: Denies fatigue and Denies weakness Eyes: Eyes: Denies change in vision ENT: Denies sore throat Cardiovascular: Cardiovascular: Denies chest pain, Reports dyspnea and Reports dyspnea on exertion Respiratory: Respiratory: Denies chest congestion, Reports cough, Denies pain on inspiration, Denies pain with cough, Reports dyspnea, Reports dyspnea on exertion and Reports wheezing Gastrointestinal: Gastrointestinal: Denies abdominal pain Musculoskeletal: Musculoskeletal: Reports abnormal gait and Reports muscle weakness Neurologic: Reports abnormal gait, Reports memory loss and Denies weakness Psychiatric: Psychiatric: Reports depression and Reports memory loss Endocrine: Endocrine: Denies fatigue Allergic/Immunologic: Allergic/Immunologic: Reports wheezing [facility] Past Medical History Medical History Lung cancer Pulmonary nodule 1 cm or greater in diameter Lung mass RITA (obstructive sleep apnea) Cor pulmonale Rib fractures Pulmonary nodule Tubular adenoma of colon (~2006) Osteopenia (~2012) Bronchopneumonia Chest pain Chronic respiratory alkalosis ILD (interstitial lung disease) CO2 retention Acute on chronic respiratory failure with hypoxia and hypercapnia Bipolar depression Eczema Limb swelling Insomnia Bronchitis Vasomotor rhinitis COPD (chronic obstructive pulmonary disease) Chronic respiratory failure Fall Acute metabolic encephalopathy Acute and chronic respiratory failure with hypercapnia Family History Family History Other Hypertension Surgical History Surgical History History of carpal tunnel surgery (~2000) History of ventral hernia repair (~2003) History of left inguinal hernia repair (~1995) History of tracheostomy (~2016) History of cataract surgery (~2018) History of colonoscopy Social History Social History Household Members: None Household Members Other:: Daughter, son-in-law, grandchildren Housing: Correction Housing Other:: penitentiary Are you a primary home care assistant to a significant other at home: No Do you presently have visiting nurse or other home services: No Alcohol intake: former Patient Tobacco Use Status: Former Tobacco user Tobacco use type: Cigarette Years Smoked: 20+ years e-Cigarette/Vaping Use: Never Used Second Hand Smoke Exposure: No Advance Directives Date on File: 11/30/21 service: No Current occupational status: disabled Meds Allergies Allergy/AdvReac Type Severity Reaction Status Date / Time fluoxetine Allergy Severe Irritable Verified 12/26/25 14:19 codeine (Codeine) Allergy Intermediate RESTLESS/RA Verified 11/22/25 14:19 SH haloperidol (Haldol) Allergy Intermediate Palpitation Verified 11/22/25 14:19 s Active Medications: Current Medications Acetaminophen (Acetaminophen 325 Mg Tablet) 650 mg PO Q4H PRN PRN Reason: Fever/Pain Acetazolamide (Acetazolamide 250 Mg Tablet) 250 mg PO MOWEFR [facility] Albuterol Sulfate (Albuterol Sulfate (0.083%) 2.5 Mg/3 Ml Vial.Neb) 2.5 mg INHALE RQID [facility] Last Admin: 11/24/25 15:41 Dose: 2.5 mg Albuterol Sulfate (Albuterol Sulfate 90 Mcg 8 Gm Inhaler) 2 puff INHALE Q6H PRN PRN Reason: Respiratory Distress Albuterol/Ipratropium (Albuterol/Iprat 2.5/0.5mg 3 Ml Ampul.Neb) 3 ml INHALE Q4H PRN PRN Reason: Shortness of Breath/Wheezing Apixaban (Apixaban 5 Mg Tablet) 5 mg PO BID [facility] Last Admin: 11/24/25 09:28 Dose: 5 mg Aripiprazole (Aripiprazole 10 Mg Tablet) 10 mg PO DAILY [facility] Last Admin: 11/24/25 09:29 Dose: 10 mg Aspirin (Aspirin Enteric Coated 81 Mg Tablet.) 81 mg PO DAILY [facility] Last Admin: 11/24/25 09:28 Dose: 81 mg Atorvastatin Calcium (Atorvastatin Calcium 40 Mg Tablet) 40 mg PO DAILY [facility] Last Admin: 11/24/25 09:29 Dose: 40 mg Bisacodyl (Bisacodyl 10 Mg Supp.Rect) 10 mg NC DAILY PRN PRN Reason: Constipation Calcium Carbonate (Calcium Carbonate 750 Mg Tab.Chew) 750 mg PO Q4H PRN PRN Reason: Heartburn Calcium Carbonate (Calcium Oyster Shell Elemental 500 Mg Tablet) 500 mg PO BID [facility] Last Admin: 11/24/25 09:28 Dose: 500 mg Calcium Polycarbophil (Calcium Polycarbophil Tablet) 1 tab PO DAILY [facility] Last Admin: 11/24/25 09:28 Dose: 1 tab Docusate Sodium (Docusate Sodium 100 Mg Capsule) 100 mg PO DAILY PRN PRN Reason: Constipation Ferrous Sulfate (Ferrous Sulfate 324 Mg Tablet.) 324 mg PO DAILY [facility] Last Admin: 11/24/25 09:30 Dose: 324 mg Fluticasone Propionate (Fluticasone Propionate Nasal 16 Gm [place]) 1 spray NOSTRIL-B DAILY [facility] Last Admin: 11/24/25 09:37 Dose: Not Given Fluticasone/Vilanterol (Fluticasone/Vilanterol 200/25 Blst.W.Dev) 1 puff INHALE RDAILY [facility] Last Admin: 11/24/25 15:57 Dose: Not Given Furosemide (Furosemide 20 Mg Tablet) 20 mg PO DAILY [facility]; Protocol Last Admin: 11/24/25 09:28 Dose: 20 mg Gabapentin (Gabapentin 100 Mg Capsule) 100 mg PO BID [facility] Last Admin: 11/24/25 09:28 Dose: 100 mg Guaifenesin (Guaifenesin La 600 Mg Tab.Er.12h) 1,200 mg PO BID PRN PRN Reason: Congestion Ipratropium [place] (Ipratropium [place] 0.5 Mg/2.5 Ml Solution) 0.5 mg INHALE RQID [facility] Last Admin: 11/24/25 15:41 Dose: 0.5 mg Lactulose (Lactulose 20 Gm/30 Ml Solution) 10 gm PO DAILY PRN PRN Reason: Constipation Lamotrigine (Lamotrigine 100 Mg Tablet) 200 mg PO BID [facility] Last Admin: 11/24/25 09:29 Dose: 200 mg Loratadine (Loratadine 10 Mg Tablet) 10 mg PO DAILY [facility] Last Admin: 11/24/25 09:30 Dose: 10 mg Lorazepam (Lorazepam 0.5 Mg Tablet) 0.25 mg PO BEDTIME [facility] Last Admin: 11/23/25 22:36 Dose: 0.25 mg Magnesium Hydroxide (Milk Of Magnesia 30 Ml Oral.Susp) 30 ml PO DAILY PRN PRN Reason: Constipation Melatonin (Melatonin 3 Mg Tablet) 6 mg PO BEDTIME PRN PRN Reason: Insomnia Methylprednisolone Sodium Succinate (Methylprednisolone Sod Succ 125 Mg/2 Ml Vial) 60 mg IVPUSH Q12H [facility] Last Admin: 11/24/25 16:11 Dose: 60 mg Metoprolol Succinate (Metoprolol Succinate Er 100 Mg Tab.Er.24h) 100 mg PO DAILY [facility]; Protocol Last Admin: 11/24/25 09:29 Dose: 100 mg Mirtazapine (Mirtazapine 7.5 Mg Tablet) 7.5 mg PO BEDTIME [facility] Last Admin: 11/23/25 22:35 Dose: 7.5 mg Montelukast Sodium (Montelukast Sodium 10 Mg Tablet) 10 mg PO BEDTIME [facility] Last Admin: 11/23/25 22:35 Dose: 10 mg Non-Formulary Medication (Tacrolimus) 1 appl TOPICAL DAILY PRN PRN Reason: sebopsoriasis Omeprazole (Omeprazole 20 Mg Capsule.Dr) 20 mg PO BID@0630,1630 [facility] Last Admin: 11/24/25 16:11 Dose: 20 mg Ondansetron HCl (Ondansetron Hcl 4 Mg/2 Ml Vial) 4 mg IVPUSH Q8H PRN PRN Reason: Nausea and Vomiting Polyethylene Glycol (Polyethylene Glycol 3350 17 Gm Powd.Pack) 17 gm PO DAILY [facility] Last Admin: 11/24/25 09:28 Dose: 17 gm Senna (Sennosides 8.6 Mg Tablet) 8.6 mg PO BEDTIME [facility] Last Admin: 11/23/25 22:34 Dose: 8.6 mg Sodium Biphosphate/Sodium Phosphate (Sodium Phosphate,[place]-Dibasic 133 Ml Enema) 118 ml NC DAILY PRN PRN Reason: Constipation Sodium Chloride (0.9 % Sodium Chloride Flush 3 Ml Syringe) 3 ml IVFLUSH QSHIFT [facility] Last Admin: 11/24/25 15:42 Dose: Not Given Theophylline (Theophylline Anhydrous Er 300 Mg Tab.Er.12h) 300 mg PO BID [facility] Last Admin: 11/24/25 09:28 Dose: 300 mg Trazodone HCl (Trazodone Hcl 25 Mg Halftab) 12.5 mg PO BEDTIME [facility] Last Admin: 11/23/25 22:36 Dose: 12.5 mg Triamcinolone Acetonide (Triamcinolone Acet 0.5 % Cream 15 Gm Tube) 1 appl TOPICAL BID [facility]; Protocol Last Admin: 11/24/25 09:30 Dose: Not Given Vitamin D (Cholecalciferol (Vitamin D3) 25 Mcg Tablet) 25 mcg PO DAILY [facility] Last Admin: 11/24/25 09:30 Dose: 25 mcg Home Medications ?Medication ?Instructions ?Recorded ?Confirmed ?Last Taken ?Type alendronate 70 mg tablet (Fosamax) 70 mg PO DOMINGUEZ 02/09/21 11/23/25 08/04/25 History mirtazapine 15 mg tablet 7.5 mg PO BEDTIME 09/10/21 11/23/25 08/06/25 History sennosides 8.6 mg tablet (Senokot) 8.6 mg PO BEDTIME 09/10/21 11/23/25 08/05/25 History Oxygen Home Use 04/15/23 10/22/24 Unknown History nebulizers 04/15/23 10/22/24 Unknown History docusate sodium 100 mg capsule 100 mg PO DAILY PRN Constipation 07/27/24 11/23/25 08/19/24 History aripiprazole 10 mg tablet 10 mg PO DAILY 08/20/24 11/23/25 08/06/25 History omega 4-dtl-wyz-fish oil 1,000 mg 1 cap PO BID 08/20/24 11/23/25 08/06/25 History (120 mg-180 mg) capsule (Fish Oil) apixaban 5 mg tablet (Eliquis) 5 mg PO BID 09/26/24 11/23/25 08/06/25 History gabapentin 100 mg capsule 100 mg PO BID 01/18/25 11/23/25 08/06/25 History ferrous gluconate 324 mg (38 mg 324 mg PO DAILY 07/25/25 11/23/25 08/06/25 History iron) tablet calcium carbonate (Oyster Shell 500 mg PO BID 08/06/25 11/23/25 Unknown History Calcium) cholecalciferol (vitamin D3) 25 25 mcg PO DAILY 08/06/25 11/23/25 Unknown History mcg (1,000 unit) tablet (Vitamin D3) fluticasone furoate 200 1 ea inhalation DAILY dyspnea 08/06/25 11/23/25 08/06/25 History mcg-vilanterol 25 mcg/dose inhalation powder (Breo Ellipta) furosemide 40 mg tablet 20 mg PO DAILY 08/06/25 11/23/25 08/06/25 History lactulose 10 gram/15 mL oral 15 ml PO DAILY PRN constipation 08/06/25 11/23/25 Unknown History solution (Enulose) lamotrigine 200 mg tablet 200 mg PO BID 08/06/25 11/23/25 08/06/25 History vilazodone 40 mg tablet 40 mg PO DAILY 08/06/25 11/23/25 08/06/25 History acetaminophen 325 mg tablet 650 mg PO Q4H PRN Fever/Pain 10/23/25 11/23/25 Unknown History acetazolamide 250 mg tablet 250 mg PO MOWEFR 10/23/25 11/23/25 Unknown History aspirin 81 mg tablet 81 mg PO DAILY 10/23/25 11/23/25 Unknown History atorvastatin 40 mg tablet 40 mg PO DAILY 10/23/25 11/23/25 Unknown History bisacodyl 10 mg rectal suppository 10 mg NC DAILY PRN Constipation 10/23/25 11/23/25 Unknown History guaifenesin 600 mg tablet, 1,200 mg PO BID PRN Congestion 10/23/25 11/23/25 Unknown History extended release 12 hr loratadine 10 mg tablet (Claritin) 10 mg PO DAILY 10/23/25 11/23/25 Unknown History magnesium hydroxide 400 mg/5 mL 30 ml PO DAILY PRN Constipation 10/23/25 11/23/25 Unknown History oral suspension (Milk of Magnesia) metoprolol succinate 100 mg 100 mg PO DAILY 10/23/25 11/23/25 Unknown History tablet,extended release 24 hr sodium phosphates 19 gram-7 118 ml NC DAILY PRN Constipation 10/23/25 11/23/25 Unknown History gram/197 mL enema (Fleet Enema Extra) tramadol 50 mg tablet 50 mg PO Q6H PRN Pain 10/23/25 11/23/25 Unknown History trazodone 50 mg tablet 12.5 mg PO BEDTIME Sleep 10/23/25 11/23/25 Unknown History betamethasone dipropionate 0.05 % 1 appl topical BID 11/17/25 11/23/25 Unknown History topical cream fluocinolone acetonide oil 0.01 % 5 drp otic (ears) BID PRN 11/17/25 11/23/25 Unknown History ear drops sebopsoriasis lorazepam 0.5 mg tablet (Ativan) 0.25 mg PO BEDTIME 11/17/25 11/23/25 Unknown History tacrolimus 0.1 % topical ointment 1 appl topical DAILY PRN 11/17/25 11/23/25 Unknown History sebopsoriasis Physical Exam Vital Signs: Vital Signs: Last Vital Signs Temp 97.2 F 11/24/25 16:00 Pulse 94 11/24/25 16:00 Resp 16 11/24/25 16:00 BP 126/61 11/24/25 16:00 Pulse Ox 94 11/24/25 16:00 O2 Del Method Nasal Cannula 11/24/25 16:00 O2 Flow Rate 3 11/24/25 16:00 FiO2 45 11/22/25 18:10 Oxygen Flow Rate 2 11/22/25 14:17 BMI result Body Mass Index 32.5 Const: General: alert HEENT: Head: Yes normocephalic Neck: Neck: Yes normal visual inspection, Yes full ROM and Yes no lymphadenopathy Chest: Chest palpation & inspection: normal inspection of the chest Resp: Effort & Inspection: normal respiratory effort Auscultation: diminished lung sounds Cardio: Rate: regular rate Rhythm: regular rhythm Heart sounds: S1 normal heart sound present and S2 normal heart sound present GI: Palpation (GI): Soft to palpation and nontender Auscultation: normal bowel sounds Skin: General skin exam: no rashes or lesions noted Extrem: General: No clubbing and No cyanosis Results Laboratory Findings 11/24/25 05:55 11/24/25 05:55 Abnormal lab findings: Abnormal Labs 11/22/25 11/22/25 11/22/25 14:41 14:48 19:18 RBC 3.19 L Hgb 8.0 L Hct 29.3 L MCH 25.1 L MCHC 27.3 L RDW 16.2 H Plt Count MPV 8.4 L Immature Gran % (Auto) 2.7 H Neut % (Auto) 73.3 H Lymph % (Auto) 8.1 L Lymph # (Auto) 0.5 L Abs Immat Gran (auto) 0.16 H Absolute Nucleated RBC 0.020 H Nucleated RBC % (auto) 0.3 H VBG HCO3 48 H 47 H Chloride 94 L Carbon Dioxide 43 H* Anion Gap 9 L BUN Random Glucose 119 H Magnesium 2.7 H Total Protein 6.4 L 11/23/25 11/24/25 04:24 05:55 RBC 3.12 L 2.96 L Hgb 7.7 L 7.4 L Hct 28.7 L 26.8 L MCH 24.7 L 25.0 L MCHC 26.8 L 27.6 L RDW 16.2 H Plt Count 420 H MPV 9.2 L 9.1 L Immature Gran % (Auto) 1.8 H 0.9 H Neut % (Auto) 87.2 H 88.0 H Lymph % (Auto) 5.5 L 5.6 L Lymph # (Auto) 0.3 L 0.4 L Abs Immat Gran (auto) 0.09 H 0.06 H Absolute Nucleated RBC Nucleated RBC % (auto) VBG HCO3 Chloride 95 L Carbon Dioxide 40 H* 42 H* Anion Gap 11 L 9 L BUN 19 H Random Glucose 116 H 129 H Magnesium Total Protein 6.1 L 6.1 L Microbiology: Microbiology 11/22/25 14:53 Blood - Venous Blood Culture - Preliminary No growth after 48 hours. 11/22/25 14:53 Blood - Venous Blood Culture - Preliminary No growth after 48 hours. Assessment and Plan (1) Chronic hypercapnic respiratory failure: Status: Acute (2) Cor pulmonale: Status: Acute (3) SCC of lung (small cell carcinoma): Qualifiers: Laterality: left Lung location: upper lobe of lung Qualified Code(s): C34.12 - Malignant neoplasm of upper lobe, left bronchus or lung Status: Acute (4) Pulmonary nodule: Status: Acute (5) COPD exacerbation: Status: Acute (6) RITA (obstructive sleep apnea): Status: Acute (7) Iron deficiency anemia: Qualifiers: Iron deficiency anemia type: other iron deficiency Qualified Code(s): D50.8 - Other iron deficiency anemias Status: Acute Plan Continue AVAPS, adjusted minPS 8 Max 20, minEPAP 6 maxEPAP 10, VT 500 RR 16 the patient needs to use the noninvasive ventilator couple hours after her breakfast, a couple hours after her lunch and also while sleeping requesting portability of the noninvasive ventilator since it already has a backup power with the battery life of 6-8 hours. The patient will need a stand with wheels for portability or a attachment for wheelchair for portability outside of the room to be use while she is participating in in-house activities and therefore the patient is not secluded in her room while using her noninvasive therapy during the day. We will reach out to her [employer] company through the half-way, [employer], to see if they can provide these accesories prior to her leaving the hospital in order to avoid the re-hospitalizations continue diuresis as tolerated continue Diamox as prescribed to maintain her bicarbonate ideally below 40 mm Hg continue oxygen supplementation to maintain a pulse ox above 87 %-96% monitor closely hemoglobin as the patient has very advanced respiratory failure and the anemia will result in worsening respiratory symptoms consider Hematology evaluation for the severe anemia Goals of care should be discussed with the patient and also the family. I did speak to them about the seriousness of her respiratory failure. Now with other comorbidities such as her recent diagnosis of lung cancer status post radiation and not tolerating chemotherapy in addition to now the significant anemia that is also affecting her breathing will affect her overall prognosis. Based on the patient's medical history and comorbidities palliative care may also be an option specially if her work of breathing worsens. Procedures Date of Service Date of Service: 11/24/25
[2025-11-24] MEDS: traZODone HCL 25 MG HALFTAB 12.5 MG PO (20:22)
[2025-11-25] VITALS (10 sets, daily range): BP systolic 94–138; BP diastolic 51–69; PULSE 66–99; RESP 16–20; TEMP 36–36.8; O2SAT 88–96
[2025-11-25] MEDS: Albuterol/Iprat 2.5/0.5MG 3 ML AMPUL.NEB INHALE ×4 (03:17→14:50)
[2025-11-25 07:07] LABS: MANUAL DIFF FLAG NO
[2025-11-25 07:17] LABS: Hematocrit 27.1 % (37.0-47.0); Hemoglobin 7.5 g/dl (12.0-16.0); Imm Gran Abs Auto 0.05 X10*3/uL (0.00-0.03); Imm Gran Pct Auto 0.7 % (0.0-0.4); Lymphocytes Absolute Auto 0.5 X10*3/uL (1.2-4.9); Mean Corpuscular HGB Conc 27.7 g/dl (31.0-35.0); Mean Corpuscular Hemoglobin 24.8 pg (27.0-33.0); Mean Corpuscular Volume 89.7 fL (80.0-98.0); NRBC Abs Auto 0.000 X10*3/uL (0.0-0.012); NRBC Pct Auto 0.0 /100WBC (0.0-0.2); Platelet Count 434 X10*3/uL (160-400); Red Blood Count 3.02 X10*6/uL (4.20-5.50); White Blood Count 7.5 X10*3/uL (4.8-10.8)
[2025-11-25 07:39] LABS: Alanine Aminotransferase < 6 U/L (0-31); Albumin Level 3.6 g/dL (3.5-5.0); Alkaline Phosphatase 57 U/L (39-117); Anion Gap 12 (12-20); Aspartate Amino Transferase 16 U/L (5-31); Blood Urea Nitrogen 20 mg/dL (9-16); Calcium 9.4 mg/dL (8.4-10.2); Carbon Dioxide 37 mmol/L (22-29); Chloride 97 mmol/L (96-108); Creatinine Clr Calc Pharmacy 80.4; Estimated Glomerular Filt Rate > 60; Magnesium 1.9 mg/dL (1.6-2.6); Potassium 4.4 mmol/L (3.3-5.1); Sodium 142 mmol/L (135-145); Total Protein 5.9 g/dL (6.5-8.0)
[2025-11-25] MEDS: Metoprolol Succinate ER 100 MG TAB.ER.24H PO (08:41)
[2025-11-25] MEDS: Aspirin Enteric Coated 81 MG TABLET.DR PO (08:42)
[2025-11-25] MEDS: Theophylline Anhydrous ER 300 MG TAB.ER.12H PO ×2 (08:42→21:33)
[2025-11-25] MEDS: calcium polycarbophiL TABLET 1 TAB PO (08:42)
[2025-11-25] MEDS: Calcium Oyster Shell Elemental 500 MG TABLET PO ×2 (08:42→21:35)
[2025-11-25] MEDS: Ferrous Sulfate 324 MG TABLET.DR PO (08:42)
[2025-11-25] MEDS: 0.9 % Sodium Chloride Flush 3 ML SYRINGE IVFLUSH ×3 (08:44→21:37)
[2025-11-25] MEDS: Triamcinolone Acet 0.5 % Cream 15 GM TUBE 1 APPL TOPICAL (10:23)
--- NOTE | 2025-11-25 16:17 | MHC.CM.PN ---
Pt is not yet medically cleared to DC, she is a LTC resident of [facility], on a bedhold.
--- NOTE | 2025-11-25 17:20 | HO.PM.IMPN ---
Subjective Subjective Date of Service: 11/25/25 Interval History: Reports breathing greatly improved but not back to baseline Has been OOB to commode SOB improved Would like to get OOB to chair today Slept well last night Review of Systems Review of Systems: Yes all other systems are reviewed and are negative Physical Exam Exam: Exam: General: AOx3, no acute distress. Appears frail and elderly Resp: Mild bilateral expiratory wheezing CVS: S1, S2, RRR GI: +BS, NT, no distention Skin: Warm, dry Neuro: Cranial nerves II-XII grossly intact bilaterally. Motor grossly intact bilaterally Extremities: No edema Psych: Calm, cooperative Vital Signs: Vital Signs: Last Vital Signs Temp 97.7 F 11/25/25 15:48 Pulse 90 11/25/25 15:48 Resp 20 11/25/25 15:48 BP 112/58 L 11/25/25 15:48 Pulse Ox 92 11/25/25 15:48 O2 Del Method CPAP 11/25/25 15:48 O2 Flow Rate 4 11/25/25 11:55 FiO2 45 11/22/25 18:10 Oxygen Flow Rate 2 11/22/25 14:17 BMI result Body Mass Index 32.5 Objective Data Active Medications Acetaminophen (Acetaminophen 325 Mg Tablet) 650 mg PO Q4H PRN PRN Reason: Fever/Pain Acetazolamide (Acetazolamide 250 Mg Tablet) 250 mg PO MOWEFR [facility] Last Admin: 11/25/25 08:48 Dose: 250 mg Documented By: ANCELMO Albuterol Sulfate (Albuterol Sulfate 90 Mcg 8 Gm Inhaler) 2 puff INHALE Q6H PRN PRN Reason: Respiratory Distress Albuterol/Ipratropium (Albuterol/Iprat 2.5/0.5mg 3 Ml Ampul.Neb) 3 ml INHALE RQ4H [facility] Last Admin: 11/25/25 14:50 Dose: 3 ml Documented By: GITA Apixaban (Apixaban 5 Mg Tablet) 5 mg PO BID [facility] Last Admin: 11/25/25 08:42 Dose: 5 mg Documented By: ANCELMO Aripiprazole (Aripiprazole 10 Mg Tablet) 10 mg PO DAILY [facility] Last Admin: 11/25/25 08:42 Dose: 10 mg Documented By: ANCELMO Aspirin (Aspirin Enteric Coated 81 Mg Tablet.) 81 mg PO DAILY [facility] Last Admin: 12/29/25 08:42 Dose: 81 mg Documented By: ANCELMO Atorvastatin Calcium (Atorvastatin Calcium 40 Mg Tablet) 40 mg PO DAILY [facility] Last Admin: 11/25/25 08:42 Dose: 40 mg Documented By: ANCELMO Bisacodyl (Bisacodyl 10 Mg Supp.Rect) 10 mg VT DAILY PRN PRN Reason: Constipation Calcium Carbonate (Calcium Carbonate 750 Mg Tab.Chew) 750 mg PO Q4H PRN PRN Reason: Heartburn Calcium Carbonate (Calcium Oyster Shell Elemental 500 Mg Tablet) 500 mg PO BID [facility] Last Admin: 11/25/25 08:42 Dose: 500 mg Documented By: ANCELMO Calcium Polycarbophil (Calcium Polycarbophil Tablet) 1 tab PO DAILY [facility] Last Admin: 11/25/25 08:42 Dose: 1 tab Documented By: ANCELMO Docusate Sodium (Docusate Sodium 100 Mg Capsule) 100 mg PO DAILY PRN PRN Reason: Constipation Ferrous Sulfate (Ferrous Sulfate 324 Mg Tablet.Dr) 324 mg PO DAILY [facility] Last Admin: 11/25/25 08:42 Dose: 324 mg Documented By: ANCELMO Fluticasone Propionate (Fluticasone Propionate Nasal 16 Gm Volin) 1 spray NOSTRIL-B DAILY [facility] Last Admin: 11/25/25 10:22 Dose: 1 spray Documented By: ANCELMO Fluticasone/Vilanterol (Fluticasone/Vilanterol 200/25 Blst.W.Dev) 1 puff INHALE RDAILY [facility] Last Admin: 11/25/25 08:19 Dose: Not Given Documented By: ANGELICA Non-Admin Reason: pharmacy called for med Furosemide (Furosemide 20 Mg Tablet) 20 mg PO DAILY [facility]; Protocol Last Admin: 11/25/25 08:41 Dose: 20 mg Documented By: ANCELMO Gabapentin (Gabapentin 100 Mg Capsule) 100 mg PO BID [facility] Last Admin: 11/25/25 08:42 Dose: 100 mg Documented By: ANCELMO Guaifenesin (Guaifenesin La 600 Mg Tab.Er.12h) 1,200 mg PO BID PRN PRN Reason: Congestion Lactulose (Lactulose 20 Gm/30 Ml Solution) 10 gm PO DAILY PRN PRN Reason: Constipation Lamotrigine (Lamotrigine 100 Mg Tablet) 200 mg PO BID [facility] Last Admin: 11/25/25 08:42 Dose: 200 mg Documented By: ANCELMO Loratadine (Loratadine 10 Mg Tablet) 10 mg PO DAILY [facility] Last Admin: 11/25/25 08:41 Dose: 10 mg Documented By: ANCELMO Lorazepam (Lorazepam 0.5 Mg Tablet) 0.25 mg PO BEDTIME [facility] Last Admin: 11/24/25 20:23 Dose: 0.25 mg Documented By: BRANDYN Magnesium Hydroxide (Milk Of Magnesia 30 Ml Oral.Susp) 30 ml PO DAILY PRN PRN Reason: Constipation Melatonin (Melatonin 3 Mg Tablet) 6 mg PO BEDTIME PRN PRN Reason: Insomnia Methylprednisolone Sodium Succinate (Methylprednisolone Sod Succ 125 Mg/2 Ml Vial) 60 mg IVPUSH Q12H [facility] Last Admin: 11/25/25 17:10 Dose: 60 mg Documented By: ANCELMO Metoprolol Succinate (Metoprolol Succinate Er 100 Mg Tab.Er.24h) 100 mg PO DAILY [facility]; Protocol Last Admin: 11/25/25 08:41 Dose: 100 mg Documented By: ANCELMO Mirtazapine (Mirtazapine 7.5 Mg Tablet) 7.5 mg PO BEDTIME [facility] Last Admin: 11/24/25 20:22 Dose: 7.5 mg Documented By: BRANDYN Montelukast Sodium (Montelukast Sodium 10 Mg Tablet) 10 mg PO BEDTIME [facility] Last Admin: 11/24/25 20:23 Dose: 10 mg Documented By: BRANDYN Non-Formulary Medication (Tacrolimus) 1 appl TOPICAL DAILY PRN PRN Reason: sebopsoriasis Omeprazole (Omeprazole 20 Mg Capsule.) 20 mg PO BID@0630,1630 [facility] Last Admin: 11/25/25 17:08 Dose: 20 mg Documented By: ANCELMO Ondansetron HCl (Ondansetron Hcl 4 Mg/2 Ml Vial) 4 mg IVPUSH Q8H PRN PRN Reason: Nausea and Vomiting Polyethylene Glycol (Polyethylene Glycol 3350 17 Gm Powd.Pack) 17 gm PO DAILY [facility] Last Admin: 11/25/25 08:40 Dose: Not Given Documented By: ANCELMO Non-Admin Reason: Patient Refused Senna (Sennosides 8.6 Mg Tablet) 8.6 mg PO BEDTIME [facility] Last Admin: 11/24/25 20:30 Dose: Not Given Documented By: BRANDYN Non-Admin Reason: Patient Refused Sodium Biphosphate/Sodium Phosphate (Sodium Phosphate,Martin-Dibasic 133 Ml Enema) 118 ml VT DAILY PRN PRN Reason: Constipation Sodium Chloride (0.9 % Sodium Chloride Flush 3 Ml Syringe) 3 ml IVFLUSH QSHIFT [facility] Last Admin: 11/25/25 17:10 Dose: 3 ml Documented By: ANCELMO Theophylline (Theophylline Anhydrous Er 300 Mg Tab.Er.12h) 300 mg PO BID [facility] Last Admin: 11/25/25 08:42 Dose: 300 mg Documented By: ANCELMO Trazodone HCl (Trazodone Hcl 25 Mg Halftab) 12.5 mg PO BEDTIME [facility] Last Admin: 11/24/25 20:22 Dose: 12.5 mg Documented By: BRANDYN Triamcinolone Acetonide (Triamcinolone Acet 0.5 % Cream 15 Gm Tube) 1 appl TOPICAL BID [facility]; Protocol Last Admin: 11/25/25 10:23 Dose: 1 appl Documented By: ANCELMO Vitamin D (Cholecalciferol (Vitamin D3) 25 Mcg Tablet) 25 mcg PO DAILY [facility] Last Admin: 11/25/25 08:42 Dose: 25 mcg Documented By: ANCELMO Labs 11/25/25 06:17 11/25/25 06:17 Labs: Laboratory Results - last 24 hr 11/25/25 06:17 MCV 89.7 MCH 24.8 L MCHC 27.7 L RDW 16.0 Plt Count 434 H MPV 9.4 Immature Gran % (Auto) 0.7 H Neut % (Auto) 84.0 H Lymph % (Auto) 7.0 L Martin % (Auto) 7.7 Eos % (Auto) 0.3 Baso % (Auto) 0.3 Lymph # (Auto) 0.5 L Martin # (Auto) 0.6 Eos # (Auto) 0.0 Baso # (Auto) 0.0 Abs Immat Gran (auto) 0.05 H Absolute Neuts (auto) 6.3 Absolute Nucleated RBC 0.000 Nucleated RBC % (auto) 0.0 Anion Gap 12 Estim Creat Clear Calc 80.4 Estimated GFR > 60 Random Glucose 95 Calcium 9.4 Magnesium 1.9 Total Bilirubin 0.2 AST 16 ALT < 6 Alkaline Phosphatase 57 Total Protein 5.9 L Albumin 3.6 Microbiology Microbiology Results: Microbiology 11/22/25 14:53 Blood Culture - Preliminary Blood - Venous No growth after 48 hours. 11/22/25 14:53 Blood Culture - Preliminary Blood - Venous No growth after 48 hours. Assessment and Plan (1) COPD exacerbation: Status: Deleted Plan 70-year-old female with a past medical history of HTN, HLD, COPD, chronic respiratory failure on 6 L of home oxygen, cor pulmonale, paroxysmal AFib on Eliquis, RITA on BiPAP at night, lung cancer s/p XRT (no further rx tolerated); who was recently admitted from 11/17-11/20 for AC ABLA, Bipap settings being adjusted and is back <2 days post DC for similar concerns of Bipap vs CPAP machine at facility . 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 Pt herself feels better today and would like to try OOB and to chair. Cont home meds & Bipap noninvasive ventilator use with 6L O2. Mask adjustment per Pump Tender - needs prior auth- recently changed mask continue Breo, Incruse- switching to formulary meds while in pt continue Ohtuvayre- Op med goal O2- 88-92% weight management lasix as needed Diamox MWF Cont steroids #ABLA prior admission No intervention as she her multiple medical comorbidities are limiting GI consulted prior admission, not a candidate for EGD or Eliquis (for Afib) Continue PPI daily CBC transfuse if <7 Chronic medical conditions: # Known Lung cancer status post chemo and radiation-not a candidate for either per Oncology per patient Regarding lung cancer-patient reports she had follow-up outpatient 1 month ago and she used to the her PET scan showed resolution and although she is not a candidate for further chemo radiation her baseline morbidities OP Oncology f/up I'm unable to review her records in EMR Pt still has the port RUL - OP settings mx #Paroxysmal AFib on Eliquis Resume Eliquis today #CAD-continue home meds #HTN Continue home management #Mood disorders Continue home meds #Osteoporosis Continue home meds DVT prophylaxis with SCD boots for now Guarded prognosis, goals of care discussion had with the patient-full code. Multiple reassurances given both to the patient and the family Will attempt to reach out to primary planner intern - AGAIN as the family believes her LTC place doesnt have her BIPAP Per who had seen and spoken to the pt and her family - both son and daughter over the phone explaining the rationale for trilogy non invasive ventilator. She does not need a Bipap. Pt and family need family talk - Dr. Hendricks been attempting discussions for months and will continue to engage Disposition: Patient needs ongoing inpatient care as the patient needs pulm consult and reassurance regarding bipap vs trilegy machine settings. If logistics sorted regarding the mass, patient can return back to her long-term care with the appropriate mask with close pulmonary follow-up. Pt can likely be discharged back to facilty tomorrow. This note is constructed using voice recognition software. While every effort has been made to ensure accuracy, rehabilitation program manager errors may have been included. Quality Stroke Does the patient have a stroke diagnosis?: No Reason for No Anti-thrombotic by Day Two: N/A - Med Ordered VTE Prior VTE?: No VTE Risk Level:: Medical - moderate - high VTE Device Contraindication: N/A - Device Ordered VTE Drug Contraindication: N/A - Med Ordered
[2025-11-25] MEDS: traZODone HCL 25 MG HALFTAB 12.5 MG PO (21:34)
[2025-11-26] VITALS (8 sets, daily range): BP systolic 112–130; BP diastolic 56–70; PULSE 68–88; RESP 16–18; TEMP 35.9–36.3; O2SAT 90–98
[2025-11-26] MEDS: Albuterol/Iprat 2.5/0.5MG 3 ML AMPUL.NEB INHALE ×4 (00:08→12:10)
[2025-11-26 06:55] LABS: MANUAL DIFF FLAG NO
[2025-11-26 07:22] LABS: Hematocrit 29.2 % (37.0-47.0); Hemoglobin 8.1 g/dl (12.0-16.0); Imm Gran Abs Auto 0.06 X10*3/uL (0.00-0.03); Imm Gran Pct Auto 0.9 % (0.0-0.4); Lymphocytes Absolute Auto 0.6 X10*3/uL (1.2-4.9); Mean Corpuscular HGB Conc 27.7 g/dl (31.0-35.0); Mean Corpuscular Hemoglobin 24.8 pg (27.0-33.0); Mean Corpuscular Volume 89.3 fL (80.0-98.0); NRBC Abs Auto 0.000 X10*3/uL (0.0-0.012); NRBC Pct Auto 0.0 /100WBC (0.0-0.2); Platelet Count 463 X10*3/uL (160-400); Red Blood Count 3.27 X10*6/uL (4.20-5.50); White Blood Count 6.9 X10*3/uL (4.8-10.8)
[2025-11-26 07:46] LABS: Alanine Aminotransferase 7 U/L (0-31); Albumin Level 3.8 g/dL (3.5-5.0); Alkaline Phosphatase 58 U/L (39-117); Anion Gap 13 (12-20); Aspartate Amino Transferase 19 U/L (5-31); Blood Urea Nitrogen 22 mg/dL (9-16); Calcium 9.3 mg/dL (8.4-10.2); Carbon Dioxide 33 mmol/L (22-29); Chloride 100 mmol/L (96-108); Creatinine Clr Calc Pharmacy 72.8; Estimated Glomerular Filt Rate > 60; Magnesium 2.3 mg/dL (1.6-2.6); Potassium 3.8 mmol/L (3.3-5.1); Sodium 142 mmol/L (135-145); Total Protein 6.1 g/dL (6.5-8.0)
[2025-11-26] MEDS: Fluticasone/Vilanterol 200/25 BLST.W.DEV 1 PUFF INHALE (08:08)
[2025-11-26] MEDS: calcium polycarbophiL TABLET 1 TAB PO (08:20)
[2025-11-26] MEDS: Calcium Oyster Shell Elemental 500 MG TABLET PO (08:20)
[2025-11-26] MEDS: Metoprolol Succinate ER 100 MG TAB.ER.24H PO (08:20)
[2025-11-26] MEDS: Ferrous Sulfate 324 MG TABLET.DR PO (08:20)
[2025-11-26] MEDS: Theophylline Anhydrous ER 300 MG TAB.ER.12H PO (08:20)
[2025-11-26] MEDS: Aspirin Enteric Coated 81 MG TABLET.DR PO (08:20)
[2025-11-26] MEDS: 0.9 % Sodium Chloride Flush 3 ML SYRINGE IVFLUSH (08:21)
[2025-11-26] MEDS: Triamcinolone Acet 0.5 % Cream 15 GM TUBE 1 APPL TOPICAL (08:23)
--- NOTE | 2025-11-26 13:03 | PM.DS ---
DS: Providers Provider Date of admission: 11/23/25 00:53 Date of discharge: 11/26/25 Primary care physician: Janice Núñez MD Consults: 11/23/25 01:15 Consult to Pulmonology Routine Consulting Provider: [facility] Reason for consultation: Readmission for acute hypoxic respiratory failure with hypercarbia Has provider been notified: No 11/23/25 01:16 Consult to Case Management Routine Comment: in [facility] 2 mths, resp mach changed from trilogy DS: Diagnosis Discharge Diagnosis (1) COPD exacerbation: Status: Deleted DS: Summary Hospital Course Hospital Course: From admission HPI: Date of Service: 11/23/25 Attending physician on admission: Tino Martinez Chief Complaint: Hypoxia Patient is a 70-year-old female with past medical history chronic hypoxia and hypercapnic respiratory failure due to COPD has been using 6 L home O2 and AVAPS, RITA on CPAP, AFib on Eliquis, mood disorder, cor pulmonale, hypertension, hyperlipidemia, obesity and lung cancer was sent back to the ED today via ambulance for hypoxiam hypercarbia. Patient had been discharged on 11/20 with issues related to anemia, positive stool for occult, requiring 1 unit of PRBCs, aphasia secondary to pulmonary issues. Patient was admitted for 3 days. Patient states she recently moved to [employer] 2 months ago after living with her daughter. Prior to this patient was a member of the [employer] program and lived in an apartment on the grounds of [employer]. Back then patient had been using AVAPS at home, more so the brand-name trilogy. Due to insurance currently patient is no longer eligible for the trilogy machine and states the machine she now has a day book is ineffective. (patient did show a picture of the machine and it does appear to possibly be a trilogy version) Patient states the respiratory company was out to reassess the effectiveness of her current device and no changes were made. There was a question of whether the mask fits properly as well. Patient does have a history of noncompliance with her AVAPS/trilogy and insight as to the advancement of her overall lung disease is considered fair. Patient currently states she wears her device through the night and then approximately 2 hours per day. It is possible that patient requires the machine more often during the day. Patient does remark that she remains a full code and understands that she may end up on a ventilator but if she has to be on the ventilator for a long period of time her daughter will have to make the decision to take her off. 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 Patient also complaining of chronic constipation and can not recall the last time she moved her bowels. Patient denies any chest pain or shortness of breath currently at rest. Patient is currently on high-flow, able to speak and follow commands. Patient can protect her airway at this time. Patient's sodium is 142, potassium 3.9, chloride 94, CO2 43. Pt is on diamoz three times per week. Renal function is stable. Lactic acid 0.6. Magnesium 2.7. Ammonia 48. BNP 226. VBG 7.41, 73, 42, 47. Viral testing negative for COVID, flu and RSV. Patient has no leukocytosis but does have chronic anemia with a current H&H of 8.0/ 29.3. Patient does take iron supplement daily. Theophylline levels in the past have been either low or stable but never supratherapeutic. Chest x-ray notes interstitial pulmonary edema. Patient has transitioned from nasal cannula to BiPAP to CPAP and now high-flow and appears to be alert and orientated appropriate for [facility] admission. Hospital Course Pt was admitted to the hospital for acute on chronic hypoxic and hypercapnic respiratory failure in the setting of COPD exacerbation. Pt and family initially requested supplying pt with a home BiPAP machine, as they thought she was not getting adequate respiratory support at home. Pt was seen and evaluated by Dr. Acharya in pulmonology who reassured pt that her noninvasive ventilator (AVAPS) was superior to BiPAP given her particular pulmonary condition. Dr. Acharya recommended additional AVAPS adjustments to minPS 8 Max 20, minEPAP 6 maxEPAP 10, VT 500 RR 16, and that pt should wear her noninvasive ventilator for a couple hours after breakfast, a couple hours after lunch, and also while sleeping/napping. He also reassured pt and family that her ventilator is portable as it has a battery life of about 6-8 hours. He reached out to the [employer] that her current retirement works with in order for them to supply the necessary components to allow the pt to have mobility outside of her room. These include a wheeled stand or an attachment to the wheelchair for the AVAPS device. For COPD exacerbation, pt was treated with IV steroids and bronchodilator therapy to good effect. At time of discharge pt reports her breathing is much improved and essentially back to baseline. Pt was not on antibiotics as there was no concern for infectious etiology. Pt will be discharged on a short course of prednisone 40 mg x 4 days. She should resume all of her other home medications. Additional details concerning hospital stay as indicated below. 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 Pt herself feels better today and would like to try OOB and to chair. Cont home meds & Bipap noninvasive ventilator use with 6L O2. Mask adjustment per [employer] - needs prior auth- recently changed mask continue Breo, Incruse- switching to formulary meds while in pt continue Ohtuvayre- Op med goal O2- 88-92% weight management lasix as needed Diamox MWF Cont steroids #ABLA prior admission No intervention as she her multiple medical comorbidities are limiting GI consulted prior admission, not a candidate for EGD or Eliquis (for Afib) Continue PPI Chronic medical conditions: # Known Lung cancer status post chemo and radiation-not a candidate for either per Oncology per patient Regarding lung cancer-patient reports she had follow-up outpatient 1 month ago and she used to the her PET scan showed resolution and although she is not a candidate for further chemo radiation her baseline morbidities OP Oncology f/up Pt still has the port RUL - OP settings mx #Paroxysmal AFib on Eliquis Resume Eliquis today #CAD-continue home meds #HTN Continue home management #Mood disorders Continue home meds #Osteoporosis Continue home meds Guarded prognosis, goals of care discussion had with the patient-full code. Multiple reassurances given both to the patient and the family Per who had seen and spoken to the pt and her family - both son and daughter over the phone explaining the rationale for trilogy non invasive ventilator. She does not need a Bipap. Pt and family need family talk about goals of care - Dr. Hendricks been attempting discussions for months and will continue to engage Time Attestation Discharge Coordination Time (in mins): 37 Quality: Safe Use of Opioids Does Pt have an Active Cancer Diagnosis on the Problem List?: Yes Opioid Measure Date for [facility] Report: 10/27/25 Opioid Measure Time for [facility] Report: 13:34 Quality: Stroke Does the patient have a stroke diagnosis?: No Physical Exam Vital Signs: Vital Signs: Last Vital Signs Temp 96.9 F 11/26/25 12:00 Pulse 68 11/26/25 12:11 Resp 18 11/26/25 12:11 BP 117/59 L 11/26/25 12:00 Pulse Ox 92 11/26/25 12:00 O2 Del Method Nasal Cannula 11/26/25 12:00 O2 Flow Rate 3 11/26/25 12:00 FiO2 45 11/22/25 18:10 Oxygen Flow Rate 2 11/22/25 14:17 BMI result Body Mass Index 32.5 DS: Data Data Completed and Pending Completed studies during hospitalization [Text1]: Procedures Assistance with Respiratory Ventilation, Less than 24 Consecutive Hours, Continuous Positive Airway Pressure (10/23/25) Labs on day of discharge: Laboratory Results - last 24 hr 11/26/25 05:41 WBC 6.9 RBC 3.27 L Hgb 8.1 L Hct 29.2 L MCV 89.3 MCH 24.8 L MCHC 27.7 L RDW 16.4 H Plt Count 463 H MPV 9.6 Immature Gran % (Auto) 0.9 H Neut % (Auto) 83.9 H Lymph % (Auto) 8.0 L [place] % (Auto) 7.1 Eos % (Auto) 0.0 Baso % (Auto) 0.1 Lymph # (Auto) 0.6 L [place] # (Auto) 0.5 Eos # (Auto) 0.0 Baso # (Auto) 0.0 Abs Immat Gran (auto) 0.06 H Absolute Neuts (auto) 5.8 Absolute Nucleated RBC 0.000 Nucleated RBC % (auto) 0.0 Sodium 142 Potassium 3.8 Chloride 100 Carbon Dioxide 33 H Anion Gap 13 BUN 22 H Creatinine 0.75 Estim Creat Clear Calc 72.8 Estimated GFR > 60 Random Glucose 92 Calcium 9.3 Magnesium 2.3 Total Bilirubin 0.1 AST 19 ALT 7 Alkaline Phosphatase 58 Total Protein 6.1 L Albumin 3.8 Preliminary micro results at discharge 11/22/25 14:53 Blood Culture - Preliminary Blood - Venous No growth after 48 hours. 11/22/25 14:53 Blood Culture - Preliminary Blood - Venous No growth after 48 hours. Discharge Plan Discharge Anticipated Discharge Date/Time: 11/26/25 12:51 Patient Disposition: [facility] Discharge Diagnosis: Acute on chronic hypoxic and hypercapnic respiratory failure Referrals: Janice Núñez MD [Primary Care Provider, Internal Medicine] - 1 Week Discharge Medications: New prednisone 20 mg tablet 40 mg PO DAILY Qty: 8 0RF Rx Instructions: Take 40mg (2 tablets) daily for the next 4 days, 11/27-11/30 Continued fluticasone propionate 50 mcg/actuation spray,suspension 1 spray intranasal DAILY 30 Days Qty: 16 11RF montelukast 10 mg tablet 10 mg PO BEDTIME 90 Days Qty: 90 3RF ipratropium bromide 0.02 % solution 2.5 ml inhalation QID Qty: 300 11RF albuterol sulfate 2.5 mg /3 mL (0.083 %) solution for nebulization 2.5 mg inhalation QID Qty: 360 11RF albuterol sulfate 90 mcg/actuation HFA aerosol inhaler 2 puff INHALATION Q6H PRN (Reason: Respiratory Distress) Qty: 8.5 11RF theophylline 300 mg tablet extended release 12 hr 300 mg PO Q12H Qty: 60 8RF alendronate [Fosamax] 70 mg Tablet 70 mg PO DOMINGUEZ mirtazapine 15 mg tablet 7.5 mg PO BEDTIME docusate sodium 100 mg capsule 100 mg PO DAILY PRN (Reason: Constipation) lorazepam [Ativan] 0.5 mg Tablet 0.25 mg PO BEDTIME tacrolimus 0.1 % Ointment 1 appl TOPICAL DAILY PRN (Reason: sebopsoriasis) Rx Instructions: apply to ears betamethasone dipropionate 0.05 % Cream 1 appl TOPICAL BID Rx Instructions: apply to scalp fluocinolone acetonide oil 0.01 % Drops 5 drp OTIC (EARS) BID PRN (Reason: sebopsoriasis) Rx Instructions: apply to ears pantoprazole [Protonix] 40 mg tablet,delayed release (DR/EC) 40 mg PO BID 30 Days Qty: 60 0RF potassium chloride 10 mEq capsule, extended release 20 meq PO BID 15 Days Qty: 60 0RF aripiprazole 10 mg tablet 10 mg PO DAILY omega [id number] oil [Fish Oil] 1,000 mg (120 mg-180 mg) Capsule 1 cap PO BID Eliquis 5 mg tablet 5 mg PO BID furosemide 40 mg tablet 20 mg PO DAILY lamotrigine 200 mg tablet 200 mg PO BID lactulose [Enulose] 10 gram/15 mL solution 15 ml PO DAILY PRN (Reason: constipation) vilazodone 40 mg tablet 40 mg PO DAILY fluticasone furoate-vilanterol [Breo Ellipta] 200-25 mcg/dose blister with device 1 ea inhalation DAILY calcium carbonate [Oyster Shell Calcium] 500 mg calcium (1,250 mg) Tablet 500 mg PO BID cholecalciferol (vitamin D3) [Vitamin D3] 25 mcg (1,000 unit) Tablet 25 mcg PO DAILY atorvastatin 40 mg tablet 40 mg PO DAILY acetaminophen 325 mg Tablet 650 mg PO Q4H PRN (Reason: Fever/Pain) trazodone 50 mg Tablet 12.5 mg PO BEDTIME metoprolol succinate 100 mg tablet extended release 24 hr 100 mg PO DAILY acetazolamide 250 mg tablet 250 mg PO MOWEFR tramadol 50 mg Tablet 50 mg PO Q6H PRN (Reason: Pain) magnesium hydroxide [Milk of Magnesia] 400 mg/5 mL Suspension 30 ml PO DAILY PRN (Reason: Constipation) bisacodyl 10 mg Suppository 10 mg OR DAILY PRN (Reason: Constipation) aspirin 81 mg Tablet 81 mg PO DAILY loratadine [Claritin] 10 mg Tablet 10 mg PO DAILY Fleet Enema Extra 19-7 gram/197 mL Enema 118 ml OR DAILY PRN (Reason: Constipation) guaifenesin 600 mg Tablet Extended Release 12hr 1,200 mg PO BID PRN (Reason: Congestion) sennosides [Senokot] 8.6 mg tablet 8.6 mg PO BEDTIME Rx Instructions: Hold for loose stools gabapentin 100 mg capsule 100 mg PO BID (DME) nebulizers Misc See Rx Instructions .Route Rx Instructions: As directed (DME) Oxygen Home Use Kit See Rx Instructions .Route Rx Instructions: As directed ferrous gluconate 324 mg (38 mg iron) tablet 324 mg PO DAILY Discharge Orders: Discharge Order (Routine); Ordered 11/26/25 Ordered By: Alberto Whiting Activity on Discharge: As tolerated Stand Alone Forms: Patient Portal Discharge page Print Language: Latvian Care Plan Goals: See below Health Concerns: Acute on chronic hypoxic and hypercapnic respiratory failure COPD exacerbation End-stage COPD Lung cancer Plan of Treatment: You were admitted to the hospital for acute on chronic hypoxic and hypercapnic respiratory failure in the setting of COPD exacerbation. You initially presented with concerns that your CPAP machine was not functioning properly and you would like a BiPAP machine. You were seen and evaluated by Dr. Acharya in pulmonology who recommended to continue your noninvasive ventilator (AVAPS) as it is much more superior than BiPAP for your pulmonary condition. Dr. Acharya recommended additional AVAPS adjustments which are listed below. For COPD exacerbation you were treated with bronchodilator therapy and IV steroids to good effect. By time of discharge you report that your breathing is much improved and back to baseline. -- Continue AVAPS, adjusted minPS 8 Max 20, minEPAP 6 maxEPAP 10, VT 500 RR 16. -- You will need to use the noninvasive ventilator a couple hours after her breakfast, a couple hours after her lunch, and also while sleeping. -- Noninvasive ventilator has a battery life around 6-8 hours so therefore his very portable. We will talk to the [employer] that her current retirement is working with -- [employer] -- to make sure that they provide the necessary components to allow her to have some mobility outside of her room with the noninvasive ventilator, such as a stand with wheels or an attachment for the wheelchair. -- Your current mask, F30 I, seems to be a good comfortable fit and you should continue. -- You will be discharged on a short course of prednisone 40 mg x4 days. -- You should continue all of your other home medications. Assessment: See discharge summary
[2025-11-26] MEDS: Heparin Sodium,Porcine Flush 500 UNIT/5 ML SYRINGE IVFLUSH (14:13)
--- NOTE | 2025-11-26 14:19 | MHC.CM.PN ---
IMM 11/24/25 Patient discharged today. She will return to [facility], via BLS. 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
== END 2025-11-26 15:01 | disposition skilled nursing facility (03) | DRG 190 ==
LOC: HO.ED 11-23 00:55 → HO.EDOVER 11-23 01:06 → HO.IMC 11-23 19:47 → HO.S3 11-25 18:29
PROVIDERS: Emergency Medicine; Physician Assistant Medical; Student in an Organized Health Care Education/Training Program; Admitting Provider Nurse Practitioner Family; Emergency Provider Student in an Organized Health Care Education/Training Program; PCP Family Medicine Geriatric Medicine; Visit Provider Student in an Organized Health Care Education/Training Program
DX: J43.9 Emphysema, unspecified (principal); J96.21 Acute and chronic respiratory failure with hypoxia; J96.22 Acute and chronic respiratory failure with hypercapnia; C34.90 Malignant neoplasm of unspecified part of unspecified bronchus or lung; G47.33 Obstructive sleep apnea (adult) (pediatric); I48.0 Paroxysmal atrial fibrillation; K59.00 Constipation, unspecified; K21.9 Gastro-esophageal reflux disease without esophagitis; E88.A Wasting disease (syndrome) due to underlying condition; I25.10 Atherosclerotic heart disease of native coronary artery without angina pectoris; I10 Essential (primary) hypertension; M81.0 Age-related osteoporosis without current pathological fracture; F39 Unspecified mood [affective] disorder; D63.1 Anemia in chronic kidney disease; Z20.822 Contact with and (suspected) exposure to COVID-19; Z87.891 Personal history of nicotine dependence; Z99.81 Dependence on supplemental oxygen; Z79.01 Long term (current) use of anticoagulants; Z79.51 Long term (current) use of inhaled steroids; Z79.82 Long term (current) use of aspirin; Z79.899 Other long term (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 therapy
CPT/HCPCS: 36415; 71045; 80053; 80198; 82140; 82803; 83605; 83735; 83880; 84484; 85025; 87040; 87637; 93005; 94640; 94660; 99285; J1642; J1938; J2919

== ENCOUNTER → 2025-11-22 14:25 | Outpatient (BNV) | payer OTHER, SELFPAY | PROVIDERS: Admitting Provider Nurse Practitioner Family; Emergency Provider Student in an Organized Health Care Education/Training Program; PCP Family Medicine Geriatric Medicine; Visit Provider Internal Medicine Cardiovascular Disease | DX: R06.00 Dyspnea, unspecified (principal) | CPT/HCPCS: 93010 ==

== ENCOUNTER → 2025-11-22 14:25 | Outpatient (BNV) | payer OTHER, SELFPAY | PROVIDERS: Emergency Provider Emergency Medicine; PCP Family Medicine Geriatric Medicine; Visit Provider Radiology Diagnostic Radiology | DX: R41.82 Altered mental status, unspecified (principal) | CPT/HCPCS: 71045 ==

== ENCOUNTER → 2025-11-23 00:53 | Outpatient (BNV) | payer OTHER, SELFPAY | PROVIDERS: Admitting Provider Nurse Practitioner Family; Emergency Provider Student in an Organized Health Care Education/Training Program; PCP Family Medicine Geriatric Medicine; Visit Provider Student in an Organized Health Care Education/Training Program | DX: J44.1 Chronic obstructive pulmonary disease with (acute) exacerbation (principal) | CPT/HCPCS: 99233 ==

== ENCOUNTER → 2025-11-23 00:53 | Outpatient (BNV) | payer OTHER, SELFPAY | PROVIDERS: Admitting Provider Nurse Practitioner Family; Emergency Provider Student in an Organized Health Care Education/Training Program; PCP Family Medicine Geriatric Medicine; Visit Provider Hospitalist | DX: J96.12 Chronic respiratory failure with hypercapnia (principal); I27.81 Cor pulmonale (chronic); C34.12 Malignant neoplasm of upper lobe, left bronchus or lung; R91.1 Solitary pulmonary nodule; J44.1 Chronic obstructive pulmonary disease with (acute) exacerbation; G47.33 Obstructive sleep apnea (adult) (pediatric); D50.8 Other iron deficiency anemias | CPT/HCPCS: 99223 ==